=== PATIENT | male | born 1945 | race Caucasian/White ===

== ENCOUNTER 2016-10-14 11:13 | Emergency (ER) | payer MEDICARE ==
[2016-10-14] MEDS ORDERED: KETOROLAC 60 MG/2 ML VIAL IM STA (12:37)
[2016-10-14] MEDS ORDERED: KETOROLAC 60 MG/2 ML VIAL ONE (12:43)
== END 2016-10-14 13:10 | disposition home or self-care (01) ==
DX: M54.12 Radiculopathy, cervical region (principal); Z98.1 Arthrodesis status; F11.20 Opioid dependence, uncomplicated; I10 Essential (primary) hypertension; M19.90 Unspecified osteoarthritis, unspecified site; I25.10 Atherosclerotic heart disease of native coronary artery without angina pectoris; I25.2 Old myocardial infarction; Z95.1 Presence of aortocoronary bypass graft; I48.91 Unspecified atrial fibrillation; Z79.899 Other long term (current) drug therapy; Z79.82 Long term (current) use of aspirin; J44.9 Chronic obstructive pulmonary disease, unspecified; J45.909 Unspecified asthma, uncomplicated; Z87.891 Personal history of nicotine dependence

== ENCOUNTER 2016-11-03 11:04 | Outpatient (CLI) | payer MEDICARE, OTHER | END 2016-11-03 11:05 | disposition home or self-care (01) | DX: I10 Essential (primary) hypertension (principal) ==

== ENCOUNTER 2017-01-03 10:03 | Emergency (ER) | payer MEDICARE, OTHER ==
--- NOTE | 2017-01-03 11:18 | XRAY Preliminary Report ---
Exam: XR Chest 2 View PA/LAT IMPRESSION: Stable left lung base scarring or atelectasis. No evidence of pneumonia or other acute pr ocess. [facility] SITE ID: [id number]
--- NOTE | 2017-01-03 11:21 | XRAY Report ---
EXAM: CHEST RADIOGRAPHY EXAM DATE: 01/03/2017 10:50 AM. CLINICAL HISTORY: Cough. History of COPD and asthma. COMPARISON: 04/26/2016.. TECHNIQUE: 2 views. FINDINGS: Lungs/Pleura: No new focal opacities evident. Stable linear atelectasis or scarring at the left lung base. No pleural effusion. No pneumothorax. Normal volumes. Mediastinum: Stable findings of prior median sternotomy. Hilar and mediastinal contours are unchanged . Heart size remains within normal limits. Other: No acute bony abnormality noted. Cervical spine fusion hardware appears new from prior exam. IMPRESSION: Stable left lung base scarring or atelectasis. No evidence of pneumonia or other acute pr ocess. [facility] Referring Provider Line: [phone] SITE ID: [id number]
[2017-01-03] MEDS ORDERED: DEXAMETHASONE 10 MG/ML VIAL PO STA (12:32)
[2017-01-03] MEDS ORDERED: DEXAMETHASONE 10 MG/ML VIAL ONE (12:33)
--- NOTE | 2017-01-03 12:37 | ED Physician Documentation ---
PD HPI URI - Stated complaint Stated Complaint: COUGH/CONGESTION - Chief complaint Chief Complaint: Resp - History obtained from History obtained from: Patient - History of Present Illness Timing - onset: How many weeks ago (3) Timing duration: Weeks (3) Timing details: Gradual onset, Still present, Waxing and waning Associated symptoms: Fever, Nasal congestion, Rhinorrhea, Sore throat, Dry cough , Other (has coughing paroxysms when he lays down) Contributing factors: Other (has aclasia). 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 He has some low grade fever and feels like he has an infection. The symptoms are not severe but are persistent. Review of Systems Constitutional: reports: Fever, Myalgias, Fatigue Eyes: denies: Decreased vision Ears: denies: Ear pain Nose: reports: Rhinorrhea / runny nose, Congestion Throat: reports: Sore throat Cardiac: denies: Chest pain / pressure, Palpitations Respiratory: reports: Cough. denies: Dyspnea GI: reports: Vomiting (refluxes frequently). denies: Abdominal Pain, Nausea PD PAST MEDICAL HISTORY - Past Medical History Past Medical History: Yes Cardiovascular: Hypertension, Coronary artery disease, [place], Atrial fibrillation Respiratory: Asthma, COPD Neuro: None Endocrine/Autoimmune: None GI: GERD, Hiatal hernia, Diverticulitis : Benign prostate hypertrophy, Nocturia HEENT: Chronic sinusitis Psych: Depression, Anxiety, Claustrophobia Musculoskeletal: Osteoarthritis, Chronic back pain, Other Derm: Herpes zoster, Other - Past Surgical History Past Surgical History: Yes General: Cholecystectomy, EGD Ortho: Hip replacement, Knee replacement, Other Cardiovascular: CABG HEENT: Other - Present Medications Home Medications: Ambulatory Orders Medication Instructions Recorded Confirmed Aspirin [Naveen] 325 mg PO ONCE 02/17/13 01/03/17 Metoprolol Tartrate [Lopressor] 100 mg PO HS 02/17/13 01/03/17 Levalbuterol Tartrate [Xopenex Hfa] 2 puffs IH QID PRN #1 hfa.aer.ad 04/19/16 Trazodone HCl 300 mg PO DAILY #7 tablet 06/08/16 01/03/17 Acetaminophen 1,000 mg PO Q6HR 10/14/16 01/03/17 Naproxen Sodium [Aleve] 1 tab PO BID 10/14/16 01/03/17 Acetaminophen/Cod 300/30 [Tylenol 1 tab PO TID 01/03/17 01/03/17 #3] Amox/Clav 875/125 [Augmentin] 1 each PO Q12H #20 tablet 01/03/17 Lorazepam [Ativan] 1 mg PO TID 01/03/17 01/03/17 - Allergies Allergies/Adverse Reactions: Allergies Allergy/AdvReac Type Severity Reaction Status Date / Time albuterol Allergy Severe heart Verified 10/14/16 11:17 palpatation pantoprazole sodium * Allergy Intermediate Nausea Verified 10/14/16 11:17 [From Protonix] Dzrqudt-Uzr-Mhn Reductase Allergy Intermediate Unknown Verified 10/14/16 11:17 Inhibitor Sulfa (Sulfonamide Allergy Intermediate Rash Verified 10/14/16 11:17 Antibiotics) latex Allergy Mild Itching Verified 10/14/16 11:17 - Social History Does the pt smoke?: No Smoking Status: Former smoker Does the pt drink ETOH?: Yes Does the pt have substance abuse?: No - Immunizations Immunizations are current?: Yes - POLST Patient has POLST: No PD ED PE NORMAL - Vitals Vital signs reviewed: Yes (hypertensive ) - General General: Alert and oriented X 3, No acute distress, Well developed/nourished - HEENT HEENT: Atraumatic, PERRL, EOMI, Other (both TM's are erythematous in the attic ) - Neck Neck: Supple, no meningeal sign, No bony TTP - Cardiac Cardiac: RRR, No murmur - Respiratory Respiratory: No respiratory distress, Clear bilaterally - Abdomen Abdomen: Soft, Non tender, Other (The patient has gained weight ) - Back Back: No CVA TTP, No spinal TTP - Derm Derm: Normal color, Warm and dry, No rash - Extremities Extremities: No deformity, No edema - Neuro Neuro: No motor deficit, No sensory deficit - Psych Psych: Normal mood, Normal affect Results - Vitals Vitals: Vital Signs - 24 hr 01/03/17 01/03/17 10:10 12:38 Temperature 36.4 C L 36.4 C L Heart Rate 73 72 Respiratory 18 16 Rate Blood Pressure 159/79 H 132/82 H O2 Saturation 99 97 Oxygen O2 Source [With Activity] Room air O2 Source Room air - Rads (name of study) cxr Radiology: Prelim report reviewed (Impression: Stable left lung base scarring or atelectasis. 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 He does have some inflammation in both ears and today we are treating for OM with decadron and augmentin. He has had similar symptoms previously and his acalasia may be the real culprit but today no aspiration. Departure - Departure Disposition: 01 Home, Self Care Clinical Impression: Otitis media Qualifiers: Otitis media type: suppurative Laterality: bilateral Chronicity: acute Recurrence: not specified as recurrent Spontaneous tympanic membrane rupture: without spontaneous rupture Qualified Code(s): H66.003 - Acute suppurative otitis media without spontaneous rupture of ear drum, bilateral Condition: Stable Instructions: ED Otitis Media Acute Adult Follow-Up: OLIVERIO BARTH [Primary Care Provider] - Prescriptions: Amox/Clav 875/125 [Augmentin] 1 each PO Q12H #20 tablet Discharge Date/Time: 01/03/17 12:43
[2017-01-03 12:40] VITALS: BP 132/82
== END 2017-01-03 12:43 | disposition home or self-care (01) ==
LOC: ED 10:03
DX: H66.93 Otitis media, unspecified, bilateral (principal); I10 Essential (primary) hypertension; I25.10 Atherosclerotic heart disease of native coronary artery without angina pectoris; I25.2 Old myocardial infarction; I48.91 Unspecified atrial fibrillation; J44.9 Chronic obstructive pulmonary disease, unspecified; J45.909 Unspecified asthma, uncomplicated; K21.9 Gastro-esophageal reflux disease without esophagitis; N40.0 Benign prostatic hyperplasia without lower urinary tract symptoms; M19.90 Unspecified osteoarthritis, unspecified site; Z79.82 Long term (current) use of aspirin; Z87.891 Personal history of nicotine dependence
CPT/HCPCS: 71020; 99282; 99283

== ENCOUNTER 2017-01-30 09:42 | Emergency (ER) | payer MEDICARE ==
--- NOTE | 2017-01-30 10:02 | ED Physician Documentation ---
PD HPI LOWER EXT INJURY - Stated complaint Stated Complaint: LEFT KNEE INJ - History obtained from History obtained from: Patient, Family - History of Present Illness PD HPI LOW EXT INJURY LOCATION: Left, Knee Type of injury: Fall Where injury occurred: Home Timing - onset: Last night Timing - duration: Days (1) Timing - details: Abrupt onset, Still present Improved by: Rest, Immobilization Worsened by: Moving, Palpating Associated symptoms: Swelling. No: Weakness, Numbness Contributing factors: No: Anticoagulated Similar symptoms before: Diagnosis (knee sprain) Recently seen: Emergency Dept (Seen here last month for URI) - Additional information Additional information: 71 y/o male stepped off of a step ladder about 2 feet up and hyperextended his knee. He has some swelling and pain with weight bearing PD PAST MEDICAL HISTORY - Past Medical History Cardiovascular: Hypertension, Coronary artery disease, [place], Atrial fibrillation Respiratory: Asthma, COPD Neuro: None Endocrine/Autoimmune: None GI: GERD, Hiatal hernia, Diverticulitis : Benign prostate hypertrophy, Nocturia HEENT: Chronic sinusitis Psych: Depression, Anxiety, Claustrophobia Musculoskeletal: Osteoarthritis, Chronic back pain, Other Derm: Herpes zoster, Other - Past Surgical History Past Surgical History: Yes General: Cholecystectomy, EGD Ortho: Hip replacement, Knee replacement, Other Cardiovascular: CABG HEENT: Other - Present Medications Home Medications: Ambulatory Orders Medication Instructions Recorded Confirmed Aspirin [Naveen] 325 mg PO ONCE 02/17/13 01/30/17 Metoprolol Tartrate [Lopressor] 100 mg PO HS 02/17/13 01/30/17 Levalbuterol Tartrate [Xopenex Hfa] 2 puffs IH QID PRN #1 hfa.aer.ad 04/19/16 Trazodone HCl 300 mg PO DAILY #7 tablet 06/08/16 01/30/17 Acetaminophen 1,000 mg PO Q6HR 10/14/16 01/30/17 Naproxen Sodium [Aleve] 1 tab PO BID 10/14/16 01/30/17 Acetaminophen/Cod 300/30 [Tylenol 1 tab PO TID 01/03/17 01/30/17 #3] Amox/Clav 875/125 [Augmentin] 1 each PO Q12H #20 tablet 01/03/17 01/30/17 Lorazepam [Ativan] 1 mg PO TID 01/03/17 01/30/17 - Allergies Allergies/Adverse Reactions: Allergies Allergy/AdvReac Type Severity Reaction Status Date / Time albuterol Allergy Severe heart Verified 10/14/16 11:17 palpatation pantoprazole sodium * Allergy Intermediate Nausea Verified 10/14/16 11:17 [From Protonix] Xsvzldc-Vfx-Oqr Reductase Allergy Intermediate Unknown Verified 10/14/16 11:17 Inhibitor Sulfa (Sulfonamide Allergy Intermediate Rash Verified 10/14/16 11:17 Antibiotics) latex Allergy Mild Itching Verified 10/14/16 11:17 - Social History Does the pt smoke?: No Smoking Status: Former smoker Does the pt drink ETOH?: Yes Does the pt have substance abuse?: No - Immunizations Immunizations are current?: Yes - POLST Patient has POLST: No PD ED PE NORMAL - Vitals Vital signs reviewed: Yes (hypertensive ) - General General: No acute distress, Well developed/nourished - HEENT HEENT: Atraumatic, PERRL - Respiratory Respiratory: No respiratory distress - Derm Derm: Normal color, Warm and dry, No rash - Extremities Extremities: No deformity, Other (There does appear to be an effusion. The knee is run throug a ROM without significant pain. The ligaments are stable to testing and the distal n/v is intact. ) - Neuro Neuro: No motor deficit, No sensory deficit, Normal speech - Psych Psych: Normal mood, Normal affect Results - Vitals Vitals: Vital Signs - 24 hr 01/30/17 10:00 Temperature 37.3 C Heart Rate 69 Respiratory 16 Rate Blood Pressure 135/83 H O2 Saturation 95 Oxygen O2 Source [With Activity] Room air O2 Source Room air - Rads (name of study) 4 view left knee Radiology: Prelim report reviewed (Impression: 1. Trace joint effusion unchanged. 2. No acute fracture or malalignment. 3. Mild tricompartmental osteoarthritis.), EMP read indepedently, See rad report PD MEDICAL DECISION MAKING - ED course Complexity details: reviewed old records, reviewed results, re-evaluated patient , considered differential, d/w patient, d/w family ED course: 71 y/o male with a history of arthritis has a sprain of the left knee. Departure - Departure Disposition: 01 Home, Self Care Clinical Impression: Left knee sprain Qualifiers: Encounter type: initial encounter Involved ligament of knee: unspecified ligament Qualified Code(s): S83.92XA - Sprain of unspecified site of left knee, initial encounter Condition: Stable Instructions: ED Effusion Knee, ED Sprain Knee Follow-Up: OLIVERIO BARTH [Primary Care Provider] -
[2017-01-30 10:09] VITALS: BP 135/83
--- NOTE | 2017-01-30 10:44 | XRAY Preliminary Report ---
Exam: XR Knee 4 View LT IMPRESSION: 1. Trace joint effusion unchanged. 2. No acute fracture or malalignment. 3. Mild tricompartmental osteoarthritis. [facility] SITE ID: [id number]
--- NOTE | 2017-01-30 10:46 | XRAY Report ---
EXAM: LEFT KNEE RADIOGRAPHY EXAM DATE: 01/30/2017 10:18 AM. CLINICAL HISTORY: Hyperextension injury, pain to popletial area. COMPARISON: Left knee MRI dated 10/22/2010. TECHNIQUE: 4 views. FINDINGS: Bones: Diffuse osteopenia present. No acute fracture identified. No focal bone lesion. Joints: A trace joint effusion present as seen on prior MRI. Tiny osteophytes developing about all 3 compartments without significant joint space loss. Soft Tissues: Vascular calcifications and several surgical clips lie posterior to the knee. IMPRESSION: 1. Trace joint effusion unchanged. 2. No acute fracture or malalignment. 3. Mild tricompartmental osteoarthritis. [facility] Referring Provider Line: [phone] SITE ID: [id number]
[2017-01-30] MEDS ORDERED: KETOROLAC 60 MG/2 ML VIAL IM STA (10:59)
[2017-01-30] MEDS ORDERED: KETOROLAC 60 MG/2 ML VIAL ONE (11:05)
== END 2017-01-30 11:32 | disposition home or self-care (01) ==
LOC: ED 09:42
DX: S83.92XA Sprain of unspecified site of left knee, initial encounter (principal); X50.1XXA Overexertion from prolonged static or awkward postures, initial encounter; Y92.009 Unspecified place in unspecified non-institutional (private) residence as the place of occurrence of the external cause; I10 Essential (primary) hypertension; M17.12 Unilateral primary osteoarthritis, left knee; Z96.659 Presence of unspecified artificial knee joint; Z96.649 Presence of unspecified artificial hip joint; Z87.891 Personal history of nicotine dependence; Z79.82 Long term (current) use of aspirin
CPT/HCPCS: 96372; 99283

== ENCOUNTER 2017-04-08 11:22 | Emergency (ER) | payer MEDICARE ==
[2017-04-08] MEDS ORDERED: LEVALBUTEROL 1.25 MG INH STA (11:59)
[2017-04-08] MEDS ORDERED: predniSONE 20 MG TABLET PO STA (12:00)
[2017-04-08] MEDS ORDERED: predniSONE 20 MG TABLET ONE (12:08)
[2017-04-08] MEDS ORDERED: LEVALBUTEROL 1.25 MG INH ONE (12:11)
[2017-04-08] MEDS ORDERED: SODIUM CHLORIDE INHALATION 3 ML NEB ONE (12:11)
--- NOTE | 2017-04-08 13:28 | ED Physician Documentation ---
History of Present Illness - Stated complaint Stated Complaint: COUGH/CONGESTION - Chief complaint Chief Complaint: Resp - Additonal information Additional information: Patient is a 72-year-old man with a history of smoking in the past, hypertension , palpitations status post cardiac ablation who comes in with complaint of cough and congestion. He has had a dry nonproductive cough for a couple days. In addition he has been wheezing. He has a tickle in his throat and is been coughing sporadically. He has an Xopenex inhaler which she has been using variable benefit. He has not smoked since his heart attack about 10 years ago. He does not have any known history of COPD or asthma. He denies any fever chills there is no chest pain heaviness or exertional dyspnea. Review of systems: For pertinent positive and negatives in the review of systems please see the history of present illness, otherwise all other systems have been reviewed and are negative. Dragon disclaimer: Parts of this medical record were created using voice recognition technology. Because of the inherent limitations of this system, occasional same sounding word substitutions do occur and persist despite proofreading. Please read the document for context. PD PAST MEDICAL HISTORY - Past Medical History Cardiovascular: Hypertension, Coronary artery disease, [place], Atrial fibrillation Respiratory: Asthma, COPD Neuro: None Endocrine/Autoimmune: None GI: GERD, Hiatal hernia, Diverticulitis : Benign prostate hypertrophy, Nocturia HEENT: Chronic sinusitis Psych: Depression, Anxiety, Claustrophobia Musculoskeletal: Osteoarthritis, Chronic back pain, Other Derm: Herpes zoster, Other - Past Surgical History Past Surgical History: Yes General: Cholecystectomy, EGD Ortho: Hip replacement, Knee replacement, Other Cardiovascular: CABG, Other HEENT: Other - Present Medications Home Medications: Ambulatory Orders Medication Instructions Recorded Confirmed Aspirin [Naveen] 325 mg PO ONCE 02/17/13 04/08/17 Metoprolol Tartrate [Lopressor] 100 mg PO HS 02/17/13 04/08/17 Levalbuterol Tartrate [Xopenex Hfa] 2 puffs IH QID PRN #1 hfa.aer.ad 04/19/16 Trazodone HCl 300 mg PO DAILY #7 tablet 06/08/16 04/08/17 Acetaminophen 1,000 mg PO Q6HR 10/14/16 04/08/17 Acetaminophen/Cod 300/30 [Tylenol 1 tab PO TID 01/03/17 04/08/17 #3] Amox/Clav 875/125 [Augmentin] 1 each PO Q12H #20 tablet 01/03/17 04/08/17 Lorazepam [Ativan] 1 mg PO TID 01/03/17 04/08/17 Doxycycline Hyclate [Vibramycin] 100 mg PO BID #14 capsule 04/08/17 Levalbuterol Tartrate [Xopenex Hfa] 15 gm IH QID PRN #1 hfa.aer.ad 04/08/17 Prednisone 40 mg PO DAILY #8 tablet 04/08/17 - Allergies Allergies/Adverse Reactions: Allergies Allergy/AdvReac Type Severity Reaction Status Date / Time albuterol Allergy Severe heart Verified 04/08/17 11:34 palpatation pantoprazole sodium * Allergy Intermediate Nausea Verified 04/08/17 11:34 [From Protonix] Zsivuku-Fph-Ian Reductase Allergy Intermediate Unknown Verified 04/08/17 11:34 Inhibitor Sulfa (Sulfonamide Allergy Intermediate Rash Verified 04/08/17 11:34 Antibiotics) latex Allergy Mild Itching Verified 04/08/17 11:34 - Social History Does the pt smoke?: No Smoking Status: Former smoker Does the pt drink ETOH?: Yes Does the pt have substance abuse?: No - Immunizations Immunizations are current?: Yes - POLST Patient has POLST: No PD ED PE NORMAL - Vitals Vital signs reviewed: Yes - General General: Alert and oriented X 3, No acute distress - HEENT HEENT: Atraumatic, PERRL, Pharynx benign, Dentition benign - Neck Neck: Supple, no meningeal sign, No bony TTP, No JVD, No bruit. No: No adenopathy, Thyroid normal, Other - Cardiac Cardiac: RRR, No murmur - Respiratory Respiratory: Other (Increased expiratory phase, wheezes bilaterally. No stridor ) - Abdomen Abdomen: Normal bowel sounds - Back Back: No CVA TTP - Derm Derm: Normal color, Warm and dry, No rash, Other - Extremities Extremities: No deformity, Normal ROM s pain Results - Vitals Vitals: Vital Signs - 24 hr 04/08/17 04/08/17 11:26 12:05 Temperature 36.5 C Heart Rate 76 96 Respiratory 18 20 Rate Blood Pressure 165/91 H O2 Saturation 96 Oxygen O2 Source [With Activity] Room air O2 Source Room air PD MEDICAL DECISION MAKING - ED course ED course: And is well-appearing 72-year-old male who presents with wheezing and a cough. The cough is dry he does not have any fever or chills or other any infectious symptoms. On examination he has moderate prolonged expiratory phase and bilateral wheezing. There is no evidence of cardiac involvement, PE, or CHF clinically. Patient is given a Xopenex 2.5 mg treatment here with significant improvement. In addition I have given him corticosteroids orally and will continue course of treatment. He feels much better and sounds better after Xopenex treatment he was issued in a spacer to use with Xopenex inhaler which she has at home. We will be placed on a short course of prednisone and he was concerned about needing antibiotics I have asked him to try and not take antibiotics however he should fail to improve I have written him for doxycycline however I have encouraged him to wait on antibiotics since this is very likely viral in origin. Disposition: To home Clinical impression: 1. Acute bronchitis with wheezing 2. Suspect underlying COPD Departure - Departure Disposition: 01 Home, Self Care Clinical Impression: Bronchitis Condition: Good Instructions: ED Bronchitis Asthmatic Follow-Up: OLIVERIO BARTH [Primary Care Provider] - Prescriptions: Prednisone 40 mg PO DAILY #8 tablet Doxycycline Hyclate [Vibramycin] 100 mg PO BID #14 capsule Levalbuterol Tartrate [Xopenex Hfa] 15 gm IH QID PRN #1 hfa.aer.ad PRN Reason: Cough
[2017-04-08 13:34] VITALS: BP 145/90
== END 2017-04-08 13:32 | disposition home or self-care (01) ==
LOC: ED 11:22
DX: J20.9 Acute bronchitis, unspecified (principal); I10 Essential (primary) hypertension; I25.2 Old myocardial infarction; I25.10 Atherosclerotic heart disease of native coronary artery without angina pectoris; Z96.649 Presence of unspecified artificial hip joint; Z96.659 Presence of unspecified artificial knee joint; Z95.1 Presence of aortocoronary bypass graft; Z87.891 Personal history of nicotine dependence; Z79.82 Long term (current) use of aspirin
CPT/HCPCS: 94640; 94664; 99283; 99284; A9270; J7512

== ENCOUNTER 2017-05-18 11:04 | Emergency (ER) | payer MEDICARE ==
[2017-05-18] MEDS ORDERED: DEXAMETHASONE 10 MG/ML VIAL PO STA (12:35)
--- NOTE | 2017-05-18 12:38 | ED Physician Documentation ---
PD HPI UPPER EXT INJURY - Stated complaint Stated Complaint: RT ARM PX - Chief complaint Chief Complaint: Ext Problem - History obtained from History obtained from: Patient - History of Present Illness Location: Right, Shoulder Type of injury: Other (lifted a box) Where injury occurred: Other ([place]) Timing - onset: Yesterday Timing - duration: Days (1) Timing - details: Abrupt onset, Still present Improved by: Rest, Immobilization Worsened by: Moving, Palpating Associated symptoms: No: Weakness, Numbness, Swelling Contributing factors: No: Anticoagulated Similar symptoms before: Diagnosis (torn triceps tendon) Recently seen: Other (recent ablation) - Additonal information Additional information: 72-year-old male with chronic right shoulder pain and triceps tendon tear has been preparing for surgery on his shoulder and he required cardiac clearance and this ended up being a problem. He has had a recent ablation and feels much improved but continues to have the issue with his shoulder. He had the ablation done about 4 weeks ago. He has been feeling much improved and yesterday when out into some driving for the first time. He took his to [place] to do the shopping he lifted a heavy box and has strained his right shoulder. He was having some improvement in that pain and now has severe acute pain. He is barely able to move his shoulder.He has a prior history of some problems with OxyContin and requests we not give him that medicine. Review of Systems Constitutional: denies: Fever Ears: denies: Ear pain Nose: denies: Congestion Throat: denies: Sore throat Cardiac: denies: Chest pain / pressure Respiratory: denies: Cough GI: denies: Abdominal Pain, Nausea, Vomiting : denies: Dysuria, Frequency Musculoskeletal: reports: Extremity pain. denies: Neck pain, Back pain, Extremity swelling Neurologic: denies: Generalized weakness, Focal weakness, Numbness PD PAST MEDICAL HISTORY - Past Medical History Cardiovascular: Hypertension, Coronary artery disease, [place], Atrial fibrillation Respiratory: Asthma, COPD Neuro: None Endocrine/Autoimmune: None GI: GERD, Hiatal hernia, Diverticulitis : Benign prostate hypertrophy, Nocturia HEENT: Chronic sinusitis Psych: Depression, Anxiety, Claustrophobia Musculoskeletal: Osteoarthritis, Chronic back pain, Other Derm: Herpes zoster, Other - Past Surgical History Past Surgical History: Yes General: Cholecystectomy, EGD Ortho: Hip replacement, Knee replacement, Other Cardiovascular: CABG, Other HEENT: Other - Present Medications Home Medications: Ambulatory Orders Medication Instructions Recorded Confirmed Aspirin [Naveen] 325 mg PO ONCE 02/17/13 04/08/17 Metoprolol Tartrate [Lopressor] 100 mg PO HS 02/17/13 04/08/17 Levalbuterol Tartrate [Xopenex Hfa] 2 puffs IH QID PRN #1 hfa.aer.ad 04/19/16 Trazodone HCl 300 mg PO DAILY #7 tablet 06/08/16 04/08/17 Acetaminophen 1,000 mg PO Q6HR 10/14/16 04/08/17 Acetaminophen/Cod 300/30 [Tylenol 1 tab PO TID 01/03/17 04/08/17 #3] Amox/Clav 875/125 [Augmentin] 1 each PO Q12H #20 tablet 01/03/17 04/08/17 Lorazepam [Ativan] 1 mg PO TID 01/03/17 04/08/17 Doxycycline Hyclate [Vibramycin] 100 mg PO BID #14 capsule 04/08/17 Levalbuterol Tartrate [Xopenex Hfa] 15 gm IH QID PRN #1 hfa.aer.ad 04/08/17 Prednisone 40 mg PO DAILY #8 tablet 04/08/17 HYDROcod/ACETAM 5/325 [[place] 5/325] 1 - 2 ea PO Q6H PRN #15 tablet 05/18/17 - Allergies Allergies/Adverse Reactions: Allergies Allergy/AdvReac Type Severity Reaction Status Date / Time albuterol Allergy Severe heart Verified 05/18/17 11:27 palpatation pantoprazole sodium * Allergy Intermediate Nausea Verified 05/18/17 11:27 [From Protonix] Rhtmecw-Uja-Ewp Reductase Allergy Intermediate Unknown Verified 05/18/17 11:27 Inhibitor Sulfa (Sulfonamide Allergy Intermediate Rash Verified 05/18/17 11:27 Antibiotics) latex Allergy Mild Itching Verified 05/18/17 11:27 - Social History Does the pt smoke?: No Smoking Status: Never smoker Does the pt drink ETOH?: Yes Does the pt have substance abuse?: No - Immunizations Immunizations are current?: Yes - POLST Patient has POLST: No PD ED PE NORMAL - Vitals Vital signs reviewed: Yes (Hypertensive) - General General: Alert and oriented X 3, No acute distress, Well developed/nourished - HEENT HEENT: Atraumatic, PERRL - Neck Neck: Supple, no meningeal sign, No bony TTP - Cardiac Cardiac: RRR, No murmur - Respiratory Respiratory: No respiratory distress, Clear bilaterally - Back Back: No CVA TTP, No spinal TTP - Derm Derm: Normal color, Warm and dry, No rash - Extremities Extremities: No deformity, Other (There is point tenderness over the deltoid laterally and posteriorly . The shoulder is in the joint and rotates easily. There is pain to passive extendion and supination and there is limitation to the ROM. ) - Neuro Neuro: No motor deficit, No sensory deficit - Psych Psych: Normal mood, Normal affect Results - Vitals Vitals: Vital Signs - 24 hr 05/18/17 05/18/17 11:24 12:47 Temperature 36.7 C 37.0 C Heart Rate 70 67 Respiratory 16 18 Rate Blood Pressure 158/89 H 172/92 H O2 Saturation 94 96 Oxygen O2 Source [With Activity] Room air O2 Source Room air PD MEDICAL DECISION MAKING - ED course Complexity details: considered differential, d/w patient ED course: 72-year-old male with chronic right shoulder pain has strained his shoulder again. He has acute pain today and has plans for follow-up with his shoulder in place. Here in the emergency department today he is given dexamethasone 10 mg orally and we will place him on a short course of Vicodin for pain control. He does have issues with pain medications and we will limit his supply. A shot of toradal helps Departure - Departure Disposition: 01 Home, Self Care Clinical Impression: Shoulder pain, right Qualifiers: Chronicity: acute Qualified Code(s): M25.511 - Pain in right shoulder Condition: Stable Instructions: ED Strain Muscle Ext Follow-Up: OLIVERIO BARTH [Primary Care Provider] - Prescriptions: HYDROcod/ACETAM 5/325 [[place] 5/325] 1 - 2 ea PO Q6H PRN #15 tablet PRN Reason: Pain Discharge Date/Time: 05/18/17 12:50
[2017-05-18] MEDS ORDERED: KETOROLAC 60 MG/2 ML VIAL IM STA (12:42)
[2017-05-18] MEDS ORDERED: DEXAMETHASONE 10 MG/ML VIAL ONE (12:43)
[2017-05-18] MEDS ORDERED: CHERRY SYRUP 10 ML UDC PO ONE (12:44)
[2017-05-18 12:48] VITALS: BP 172/92
[2017-05-18] MEDS ORDERED: KETOROLAC 60 MG/2 ML VIAL ONE (12:49)
== END 2017-05-18 12:50 | disposition home or self-care (01) ==
LOC: ED 11:04
DX: M25.511 Pain in right shoulder (principal); G89.29 Other chronic pain; Z98.890 Other specified postprocedural states; I10 Essential (primary) hypertension; I25.10 Atherosclerotic heart disease of native coronary artery without angina pectoris; Z95.1 Presence of aortocoronary bypass graft; I25.2 Old myocardial infarction; I48.91 Unspecified atrial fibrillation; J45.909 Unspecified asthma, uncomplicated; J44.9 Chronic obstructive pulmonary disease, unspecified; K21.9 Gastro-esophageal reflux disease without esophagitis; N40.0 Benign prostatic hyperplasia without lower urinary tract symptoms; M19.90 Unspecified osteoarthritis, unspecified site; Z79.82 Long term (current) use of aspirin
CPT/HCPCS: 96372; 99283; A9270

== ENCOUNTER 2017-06-18 11:33 | Emergency (ER) | payer MEDICARE, OTHER ==
[2017-06-18 12:20] LABS: BASOPHILS # (AUTO) 0.1 10^3/uL (0.0-0.1); BASOPHILS % (AUTO) 1.4 %; EOSINOPHILS # (AUTO) 0.6 10^3/uL (0.0-0.7); HCT - HEMATOCRIT 42.9 % (42.0-52.0); HGB - HEMOGLOBIN 14.4 g/dL (14.0-18.0); LYMPHOCYTES % (AUTO) 21.3 %; MEAN CORPUSCULAR HEMOGLOBIN 31.2 pg (27.0-31.0); MEAN CORPUSCULAR HGB CONC 33.6 g/dL (32.0-36.0); MEAN CORPUSCULAR VOLUME 92.8 fL (80.0-94.0); MONOCYTES # (AUTO) 0.9 10^3/uL (0.0-1.0); MONOCYTES % (AUTO) 9.9 %; NEUTROPHILS # (AUTO) 5.8 10^3/uL (1.5-6.6); NEUTROPHILS % (AUTO) 61.4 %; RED BLOOD COUNT 4.62 10^6/uL (4.70-6.10); RED CELL DISTRIBUTION WIDTH 14.5 % (12.0-15.0); UNCORRECTED WHITE BLOOD COUNT 9.5 x10^3/uL; WHITE BLOOD COUNT 9.5 x10^3/uL (4.8-10.8)
[2017-06-18 12:32] LABS: ALBUMIN/GLOBULIN RATIO 1.5 (1.0-2.2); BILIRUBIN,TOTAL 0.6 mg/dL (0.2-1.0); CALCIUM 9.2 mg/dL (8.5-10.3); CREATININE 0.8 mg/dL (0.6-1.2); POTASSIUM 4.2 mmol/L (3.5-5.0)
--- NOTE | 2017-06-18 13:13 | XRAY Preliminary Report ---
Exam: XR CHEST 1 VIEW IMPRESSION: Left basilar atelectasis versus infiltrate with mild central congestion. [facility] SITE ID: [id number]
--- NOTE | 2017-06-18 13:16 | XRAY Report ---
EXAM: CHEST RADIOGRAPHY EXAM DATE: 06/18/2017 12:48 PM. CLINICAL HISTORY: Chest pain. COMPARISON: Previous exam of 06/15/2017. TECHNIQUE: 1 view. FINDINGS: Lungs/Pleura: There is left basilar atelectasis versus infiltrate. Mild central congestion noted. Mediastinum: Heart size at upper limits of normal. Stable poststernotomy changes seen. Other: Cervical thoracic spinal hardware noted. IMPRESSION: Left basilar atelectasis versus infiltrate with mild central congestion. [facility] Referring Provider Line: [phone] SITE ID: [id number]
[2017-06-18] MEDS ORDERED: ALBUTEROL NEB 2.5 MG/3 ML INH STA (14:18)
[2017-06-18] MEDS ORDERED: DEXAMETHASONE 10 MG/ML VIAL IVP STA (14:18)
[2017-06-18] MEDS ORDERED: HYDROmorphone 1 MG/ML SYRINGE IVP STA (14:18)
[2017-06-18] MEDS ORDERED: cephALEXin 250 MG CAPSULE PO STA (14:19)
[2017-06-18] MEDS ORDERED: BENZONATATE 100 MG CAPSULE PO STA (14:19)
[2017-06-18] MEDS ORDERED: KETOROLAC 60 MG/2 ML VIAL IVP STA (14:19)
[2017-06-18] MEDS ORDERED: BENZONATATE 100 MG CAPSULE PO ONE (14:36)
[2017-06-18] MEDS ORDERED: cephALEXin 250 MG CAPSULE PO ONE (14:37)
[2017-06-18] MEDS ORDERED: DEXAMETHASONE 10 MG/ML VIAL ONE (14:37)
[2017-06-18] MEDS ORDERED: HYDROmorphone 1 MG/ML SYRINGE ONE (14:37)
[2017-06-18] MEDS ORDERED: KETOROLAC 30 MG/ML VIAL ONE (14:37)
[2017-06-18] MEDS ORDERED: CHERRY SYRUP 10 ML UDC PO ONE (14:38)
[2017-06-18 14:47] VITALS: BP 134/96
[2017-06-18] MEDS ORDERED: ALBUTEROL NEB 2.5 MG/3 ML INH ONE (14:50)
--- NOTE | 2017-06-18 15:18 | ED Physician Documentation ---
PD HPI URI - Stated complaint Stated Complaint: SOA,WHEEZING - Chief complaint Chief Complaint: Resp - History obtained from History obtained from: Patient - History of Present Illness Timing - onset: How many days ago (several days to a week.) Timing duration: Days, Weeks (1) Associated symptoms: Nasal congestion, Dry cough, Chest pain (hurts with coughing), Dyspnea. No: Fever Similar symptoms before: Diagnosis (asthma and bronchitis) Recently seen: Emergency Dept (2 days ago) Review of Systems Constitutional: reports: Myalgias. denies: Fever Nose: reports: Congestion Throat: denies: Sore throat Cardiac: reports: Chest pain / pressure (hurts anteriorly with cough). denies: Palpitations Respiratory: reports: Dyspnea, Cough GI: denies: Abdominal Pain, Nausea, Vomiting, Diarrhea Skin: denies: Rash, Lesions Musculoskeletal: reports: Other (right shoulder pain chronic, with surgery was supposed to happen yesterday and was postponed by Ortho due to pneumonia. He is having pain in shoulder and had been getting 4 tylenol#3 daily (verifies on GUILLERMO ). Does not have meds as was supposed to get Rx from Ortho post-op.) PD PAST MEDICAL HISTORY - Past Medical History Cardiovascular: Hypertension, Coronary artery disease, [place], Atrial fibrillation Respiratory: Asthma, COPD Neuro: None Endocrine/Autoimmune: None GI: GERD, Hiatal hernia, Diverticulitis : Benign prostate hypertrophy, Nocturia HEENT: Chronic sinusitis Psych: Depression, Anxiety, Claustrophobia Musculoskeletal: Osteoarthritis, Chronic back pain, Other Derm: Herpes zoster, Other - Past Surgical History Past Surgical History: Yes General: Cholecystectomy, EGD Ortho: Hip replacement, Knee replacement, Other Cardiovascular: CABG, Other HEENT: Other - Present Medications Home Medications: Ambulatory Orders Medication Instructions Recorded Confirmed Aspirin [Naveen] 325 mg PO ONCE 02/17/13 06/18/17 Metoprolol Tartrate [Lopressor] 100 mg PO HS 02/17/13 06/18/17 Trazodone HCl 300 mg PO DAILY #7 tablet 06/08/16 06/18/17 Acetaminophen 1,000 mg PO Q6HR 10/14/16 06/18/17 Lorazepam [Ativan] 1 mg PO TID 01/03/17 06/18/17 Levalbuterol Tartrate [Xopenex Hfa] 15 gm IH QID PRN #1 hfa.aer.ad 04/08/1706/24 Acetaminophen/Cod 300/30 [Tylenol 1 each PO QID PRN #18 tablet 06/18/17 #3] Benzonatate [Tessalon] 100 mg PO TID PRN #25 capsule 06/18/17 Cephalexin [Keflex] 500 mg PO TID #21 capsule 06/18/17 Dexamethasone [Decadron] 4 mg PO DAILY #5 tablet 06/18/17 Erythromycin Base [Erythromycin] 250 mg PO DAILY 06/18/17 06/18/17 - Allergies Allergies/Adverse Reactions: Allergies Allergy/AdvReac Type Severity Reaction Status Date / Time albuterol Allergy Severe heart Verified 06/18/17 11:49 palpatation pantoprazole sodium * Allergy Intermediate Nausea Verified 06/18/17 11:49 [From Protonix] Vuahjta-Vaw-Pyi Reductase Allergy Intermediate Unknown Verified 06/18/17 11:49 Inhibitor Sulfa (Sulfonamide Allergy Intermediate Rash Verified 06/18/17 11:49 Antibiotics) latex Allergy Mild Itching Verified 06/18/17 11:49 - Social History Does the pt smoke?: No Smoking Status: Never smoker Does the pt drink ETOH?: Yes Does the pt have substance abuse?: No - Immunizations Immunizations are current?: Yes - POLST Patient has POLST: No PD ED PE NORMAL - Vitals Vital signs reviewed: Yes - General General: Alert and oriented X 3, No acute distress, Well developed/nourished - HEENT HEENT: Moist mucous membranes, Pharynx benign - Neck Neck: Supple, no meningeal sign - Cardiac Cardiac: RRR, No murmur - Respiratory Respiratory: Other (scattered wheezing, no coarse sounds noted. ) Results - Vitals Vitals: Vital Signs - 24 hr 06/18/17 06/18/17 06/18/17 11:44 13:47 14:44 Temperature 36.5 C 36.4 C L 36.6 C Heart Rate 84 82 85 Respiratory 22 18 16 Rate Blood Pressure 160/89 H 156/83 H 134/96 H O2 Saturation 94 94 94 06/18/17 14:50 Temperature Heart Rate 92 Respiratory 18 Rate Blood Pressure O2 Saturation Oxygen O2 Source [With Activity] Room air O2 Source Room air - Labs Labs: Laboratory Tests 06/18/17 06/18/17 06/18/17 12:00 12:00 12:00 WBC 9.5 RBC 4.62 L Hgb 14.4 Hct 42.9 MCV 92.8 MCH 31.2 H MCHC 33.6 RDW 14.5 Plt Count 226 MPV 7.0 L Neut # 5.8 Lymph # 2.0 [place] # 0.9 Eos # 0.6 Baso # 0.1 Absolute Nucleated RBC 0.00 Nucleated RBC % 0.0 Sodium 137 Potassium 4.2 Chloride 104 Carbon Dioxide 24 Anion Gap 9.0 BUN 14 Creatinine 0.8 Estimated GFR (MDRD) 95 Glucose 108 H Calcium 9.2 Total Bilirubin 0.6 AST 26 ALT 24 Alkaline Phosphatase 58 Troponin I < 0.04 Total Protein 7.0 Albumin 4.2 Globulin 2.8 Albumin/Globulin Ratio 1.5 Lipase 33 - Rads (name of study) chest Radiology: Prelim report reviewed, EMP read contemporaneously (no infiltrates.) PD MEDICAL DECISION MAKING - ED course Complexity details: reviewed old records, reviewed results, re-evaluated patient , considered differential (his shoulder surgery yesterday was cancelled due to respiratory infection/pneumonia. He is having more cough and wheezing despite the meds from last visit (Zpack was changed to erythromycin plain by pharmacist , and no steroid as becky was about to have surgery. ), d/w patient Departure - Departure Disposition: 01 Home, Self Care Clinical Impression: Dyspnea Qualifiers: Dyspnea type: shortness of breath Qualified Code(s): R06.02 - Shortness of breath Pneumonia Qualifiers: Pneumonia type: due to unspecified organism Laterality: left Lung location: lower lobe of lung Qualified Code(s): J18.1 - Lobar pneumonia, unspecified organism Condition: Stable Record reviewed to determine appropriate education?: Yes Instructions: ED Bronchitis Asthmatic Follow-Up: OLIVERIO BARTH [Primary Care Provider] - Prescriptions: Acetaminophen/Cod 300/30 [Tylenol #3] 1 each PO QID PRN #18 tablet PRN Reason: Pain Benzonatate [Tessalon] 100 mg PO TID PRN #25 capsule PRN Reason: Cough Cephalexin [Keflex] 500 mg PO TID #21 capsule Dexamethasone [Decadron] 4 mg PO DAILY #5 tablet Comments: Stop the erythromycin if it is bothering your stomach. Change to cephalexin 3 times a day for the next week. Use dexamethasone steroid daily for 5 more days. Benzonatate if needed for cough. Tylenol#3 up to 4 times a day as needed for pain. This is just to bridge between now and your primary care in order to continue your usual pain medication through your regular provider. Continue your inhaler at home 2 puffs 4 times a day and extra times if needed. Recheck if not improving over the next few days. Discharge Date/Time: 06/18/17 15:46
== END 2017-06-18 15:46 | disposition home or self-care (01) ==
LOC: ED 11:33
DX: J18.9 Pneumonia, unspecified organism (principal); I10 Essential (primary) hypertension; I25.10 Atherosclerotic heart disease of native coronary artery without angina pectoris; Z95.1 Presence of aortocoronary bypass graft; I25.2 Old myocardial infarction; I48.91 Unspecified atrial fibrillation; K21.9 Gastro-esophageal reflux disease without esophagitis; N40.0 Benign prostatic hyperplasia without lower urinary tract symptoms; M19.90 Unspecified osteoarthritis, unspecified site; Z79.82 Long term (current) use of aspirin
CPT/HCPCS: 36415; 71010; 80053; 83690; 84484; 85025; 93005; 94640; 96374; 96375; 99284; A9270; J1170; J7613

== ENCOUNTER 2017-06-20 19:43 | Observation (INO) | payer MEDICARE, OTHER ==
--- NOTE | 2017-06-20 20:28 | ED Physician Documentation ---
PD HPI CHEST PAIN - Stated complaint Stated Complaint: RIB PX - Chief complaint Chief Complaint: General - History obtained from History obtained from: Patient - History of Present Illness Timing - onset: How many days ago (2) Timing - duration: Days (2) Timing - details: Abrupt onset, Constant, Waxing and waning Pain level max: 10 Pain level now: 8 Quality: Sharp, Pain Location: Right chest Radiation: Back, Abdominal Improved by: Rest Worsened by: Movement, Palpation, Position Associated symptoms: Diaphoresis, Cough. No: Shortness of air Recently seen: Emergency Dept - Additional information Additional information: T+R from this ED 2 days ago, was prescribed antibiotic for possible pneumonia. Shortly after being discharged, he had sudden onset of severe right flank and right back pain (lower parathoracic/upper paralumbar region on right) when coughing. He presents due to a steady worsening of this pain. He was also T+R from this ED 06/15, prescribed zithromax, but he says that when he went to fill it, the pharmacist said this antibiotic had potential interaction with one of his medications and thus it was not filled). Review of Systems Constitutional: reports: Sweats. denies: Fever, Chills Eyes: reports: Reviewed and negative Ears: reports: Reviewed and negative Nose: reports: Reviewed and negative Throat: reports: Reviewed and negative Cardiac: reports: Chest pain / pressure (right lower chest wall). denies: Palpitations, Pedal edema, Calf pain Respiratory: reports: Cough. denies: Dyspnea GI: reports: Abdominal Pain, Nausea. denies: Vomiting, Constipation, Diarrhea : denies: Dysuria, Frequency Skin: reports: Lesions (right abdominal bruise) Musculoskeletal: reports: Back pain. denies: Neck pain, Extremity pain Neurologic: denies: Generalized weakness, Focal weakness PD PAST MEDICAL HISTORY - Past Medical History Cardiovascular: Hypertension, Coronary artery disease, [place], Atrial fibrillation Respiratory: Asthma, COPD Neuro: None Endocrine/Autoimmune: None GI: GERD, Hiatal hernia, Diverticulitis : Benign prostate hypertrophy, Nocturia HEENT: Chronic sinusitis Psych: Depression, Anxiety, Claustrophobia Musculoskeletal: Osteoarthritis, Chronic back pain, Other Derm: Herpes zoster, Other - Past Surgical History Past Surgical History: Yes General: Cholecystectomy, EGD Ortho: Hip replacement, Knee replacement, Other Cardiovascular: CABG, Other HEENT: Other - Present Medications Home Medications: Ambulatory Orders Medication Instructions Recorded Confirmed Metoprolol Tartrate [Lopressor] 100 mg PO HS 02/17/13 06/20/17 Trazodone HCl 300 mg PO DAILY #7 tablet 06/08/16 06/20/17 Acetaminophen 1,000 mg PO Q6HR 10/14/16 06/20/17 Lorazepam [Ativan] 1 mg PO TID 01/03/17 06/20/17 Levalbuterol Tartrate [Xopenex Hfa] 15 gm IH QID PRN #1 hfa.aer.ad 04/08/17 Acetaminophen/Cod 300/30 [Tylenol 1 each PO QID PRN #18 tablet 06/18/17 06/20/17 #3] Benzonatate [Tessalon] 100 mg PO TID PRN #25 capsule 06/18/17 06/20/17 Cephalexin [Keflex] 500 mg PO TID #21 capsule 06/18/17 06/20/17 Dexamethasone [Decadron] 4 mg PO DAILY #5 tablet 06/18/17 06/20/17 - Allergies Allergies/Adverse Reactions: Allergies Allergy/AdvReac Type Severity Reaction Status Date / Time albuterol Allergy Severe heart Verified 06/20/17 19:55 palpatation pantoprazole sodium * Allergy Intermediate Nausea Verified 06/20/17 19:55 [From Protonix] Ageqezv-Kpq-Zjw Reductase Allergy Intermediate Unknown Verified 06/20/17 19:55 Inhibitor Sulfa (Sulfonamide Allergy Intermediate Rash Verified 06/20/17 19:55 Antibiotics) latex Allergy Mild Itching Verified 06/20/17 19:55 - Social History Does the pt smoke?: No Smoking Status: Never smoker Does the pt drink ETOH?: Yes Does the pt have substance abuse?: No - Immunizations Immunizations are current?: Yes - POLST Patient has POLST: No PD ED PE NORMAL - Vitals Vital signs reviewed: Yes - General General: Alert and oriented X 3, Well developed/nourished, Other (painful distress, crying out in pain while awaiting evaluation) - HEENT HEENT: Atraumatic, Moist mucous membranes - Neck Neck: Supple, no meningeal sign - Cardiac Cardiac: RRR, No murmur - Respiratory Respiratory: No respiratory distress, Clear bilaterally - Abdomen Abdomen: Soft - Back Back: No spinal TTP - Extremities Extremities: No edema - Neuro Neuro: Alert and oriented X 3 PD ED PE EXPANDED - Abdomen Abdomen Visual: 1 - bruising, swelling, tenderness Results - Vitals Vitals: Vital Signs - 24 hr 06/20/17 06/20/17 06/20/17 19:47 19:54 23:10 Temperature 36.9 C 36.4 C L 36.7 C Heart Rate 85 83 84 Respiratory 19 16 17 Rate Blood Pressure 121/76 117/79 150/71 H O2 Saturation 94 96 95 Oxygen O2 Source [With Activity] Room air O2 Source Room air - Labs Labs: Laboratory Tests 06/20/17 06/20/17 06/20/17 21:33 21:33 21:33 WBC 12.5 H RBC 4.17 L Hgb 13.2 L Hct 39.2 L MCV 93.8 MCH 31.5 H MCHC 33.6 RDW 15.1 H Plt Count 274 MPV 7.0 L Neut # 10.6 H Lymph # 1.1 L [place] # 0.7 Eos # 0.0 Baso # 0.0 Absolute Nucleated RBC 0.00 Nucleated RBC % 0.0 PT 10.8 INR 1.0 APTT 23.2 L Sodium 134 L Potassium 4.6 Chloride 101 Carbon Dioxide 22 Anion Gap 11.0 BUN 23 H Creatinine 0.9 Estimated GFR (MDRD) 83 L Glucose 165 H Calcium 8.6 Total Bilirubin 0.7 AST 29 ALT 24 Alkaline Phosphatase 44 Total Protein 7.0 Albumin 4.0 Globulin 3.0 Albumin/Globulin Ratio 1.3 Lipase 39 - Rads (name of study) CT A/P Radiology: Prelim report reviewed, See rad report PD MEDICAL DECISION MAKING - ED course Complexity details: reviewed old records, reviewed results, re-evaluated patient , considered differential, d/w patient ED course: Modest relief with 4mg IV morphine. CT A/P reveals hematoma that appears to be mostly in the soft tissues, although it does extend into the retroperitoneum. There is no evidence of bleeding at time of scan (no extravasation or pooling of IV contrast). The radiology/product technician reported to me that the saline flush after the IV contrast appeared to cause swelling at IV site (right antecubital fossa), and thus IV removed. I inspected the site (right AC fossa), and note minimal swelling without tenderness, erythema, or focal firmness (only mild, soft swelling). A new IV was placed and patient given a second dose of IV morphine for recurrence of the pain. Departure - Departure Disposition: ED Place in Observation Clinical Impression: Abdominal hematoma Condition: Good Discharge Date/Time: 06/21/17 00:40
[2017-06-20] MEDS ORDERED: MORPHINE 2 MG/ML SYRINGE IVP STA ×2 (20:52→23:17)
[2017-06-20] MEDS ORDERED: MORPHINE 2 MG/ML SYRINGE ONE ×2 (21:07→23:32)
[2017-06-20] MEDS ORDERED: IOPAMIDOL-300 100 ML VIAL ONE (21:29)
[2017-06-20 21:40] LABS: BASOPHILS % (AUTO) 0.3 %; HCT - HEMATOCRIT 39.2 % (42.0-52.0); HGB - HEMOGLOBIN 13.2 g/dL (14.0-18.0); LYMPHOCYTES # (AUTO) 1.1 10^3/uL (1.5-3.5); LYMPHOCYTES % (AUTO) 9.1 %; MEAN CORPUSCULAR HEMOGLOBIN 31.5 pg (27.0-31.0); MEAN CORPUSCULAR HGB CONC 33.6 g/dL (32.0-36.0); MEAN CORPUSCULAR VOLUME 93.8 fL (80.0-94.0); MONOCYTES # (AUTO) 0.7 10^3/uL (0.0-1.0); MONOCYTES % (AUTO) 5.9 %; NEUTROPHILS # (AUTO) 10.6 10^3/uL (1.5-6.6); NEUTROPHILS % (AUTO) 84.7 %; RED BLOOD COUNT 4.17 10^6/uL (4.70-6.10); RED CELL DISTRIBUTION WIDTH 15.1 % (12.0-15.0); UNCORRECTED WHITE BLOOD COUNT 12.5 x10^3/uL; WHITE BLOOD COUNT 12.5 x10^3/uL (4.8-10.8)
[2017-06-20] MEDS ORDERED: ONDANSETRON 4 MG/2 ML VIAL IVP STA (21:48)
[2017-06-20] MEDS ORDERED: ONDANSETRON 4 MG/2 ML VIAL ONE (21:52)
[2017-06-20 21:54] LABS: ALBUMIN/GLOBULIN RATIO 1.3 (1.0-2.2); BILIRUBIN,TOTAL 0.7 mg/dL (0.2-1.0); CALCIUM 8.6 mg/dL (8.5-10.3); CREATININE 0.9 mg/dL (0.6-1.2); POTASSIUM 4.6 mmol/L (3.5-5.0)
[2017-06-20] MEDS ORDERED: IOPAMIDOL-300 100 ML VIAL IVP ONE (22:21)
--- NOTE | 2017-06-20 22:51 | CT Preliminary Report ---
Exam: CT ABDOMEN/PELVIS W/ IMPRESSION: 1. Moderate-sized hematoma centered around the lateral aspects of the right 10th and 11th ribs involv ing the subcutaneous tissues, intercostal musculature, and with extension into the retroperitoneum. N o definite active bleeding seen but close clinical monitoring is suggested. 2. No displaced rib fracture identified but there could be a nondisplaced rib fracture(s) and trauma related if patient is not coagulopathic for some other reason. 3. Fatty liver. 4. Colonic diverticulosis. 5. Moderate atherosclerotic disease of the aorta and branches. [facility] The above critical findings were discussed with Salomon by Dr. Ezra Madden at 22:42 hrs on 06/08 10/22. SITE ID: [id number]
--- NOTE | 2017-06-20 23:01 | CT Report ---
EXAM: CT ABDOMEN AND PELVIS EXAM DATE: 06/20/2017 10:25 PM. CLINICAL HISTORY: Right abdominal pain, tenderness, bruising. COMPARISONS: 08/03/2016. TECHNIQUE: Routine helical CT imaging was performed through the abdomen and pelvis. IV contrast: 100 mL Isovue 300. Enteric contrast: No . Reconstructions: Coronal and sagittal. In accordance with CT protocol optimization, one or more of the following dose reduction techniques w ere utilized for this exam: automated exposure control, adjustment of mA and/or KV based on patient s ize, or use of iterative reconstructive technique. FINDINGS: Lung Bases: Trace right effusion. No pneumothorax seen. Liver: Fatty. No suspicious masses. Gallbladder/Bile Ducts: Unremarkable post cholecystectomy. Spleen: Unremarkable. Pancreas: Unremarkable. Adrenal Glands: Unremarkable. Kidneys: Unremarkable. No suspicious masses or hydronephrosis. Peritoneal Cavity/Bowel: Extensive colonic diverticulosis. No bowel obstruction or inflammatory proce ss seen. No free air or significant free fluid. No masses or adenopathy. The appendix is normal. No e xcessive stool burden. Pelvic Organs: Essentially obscured by streak. Vasculature: Moderate atherosclerotic disease of the aorta and branches. No aneurysm seen. Bones: No displaced rib fracture identified. Previous posterior fusion at L4-S1. No acute spinal or p elvic fracture identified. Prior bilateral hip replacements. Post median sternotomy. Other: Moderate-sized hematoma centered around the lateral aspects of the right 10th and 11th ribs in volving the subcutaneous tissues, intercostal musculature, and with extension into the retroperitoneu m. No definite active bleeding seen. IMPRESSION: 1. Moderate-sized hematoma centered around the lateral aspects of the right 10th and 11th ribs involv ing the subcutaneous tissues, intercostal musculature, and with extension into the retroperitoneum. N o definite active bleeding seen but close clinical monitoring is suggested. 2. No displaced rib fracture identified but there could be a nondisplaced rib fracture(s) and trauma related if patient is not coagulopathic for some other reason. 3. Fatty liver. 4. Colonic diverticulosis. 5. Moderate atherosclerotic disease of the aorta and branches. [facility] The above critical findings were discussed with Salomon by Dr. Ezra Madden at 22:49 hrs on 06/08 10/22. Referring Provider Line: [phone] SITE ID: [id number]
[2017-06-20 23:35] LABS: PT - PROTHROMBIN TIME 10.8 secs (9.9-12.6)
[2017-06-20 23:42] LABS: PARTIAL THROMBOPLASTIN TIME 23.2 secs (24.9-33.3)
[2017-06-20] MEDS ORDERED: SODIUM CHLORIDE 0.9% 1,000 ML IV SCH (23:45)
[2017-06-20] MEDS ORDERED: BENZONATATE 100 MG CAPSULE PO PRN (23:51)
[2017-06-20] MEDS ORDERED: PROCHLORPERAZINE 10 MG/2 ML VIAL IVP PRN (23:52)
[2017-06-20] MEDS ORDERED: oxyCODONE 5 MG TABLET PO PRN (23:52)
[2017-06-20] MEDS ORDERED: ONDANSETRON 4 MG/2 ML VIAL IVP PRN (23:52)
[2017-06-20] MEDS ORDERED: SODIUM CHLORIDE INHALATION 3 ML NEB INH PRN (23:52)
[2017-06-21] MEDS ORDERED: guaiFENesin/CODEINE 5 ML UDC PO PRN (00:28)
[2017-06-21] MEDS: traZODone 50 MG TABLET PO SCH ×2 (01:20→20:19)
[2017-06-21] MEDS: SODIUM CHLORIDE FLUSH 0.9% 10 ML SYRINGE IVP PRN ×3 (01:20→22:23)
[2017-06-21] MEDS: MORPHINE 2 MG/ML SYRINGE IVP PRN ×8 (01:27→22:22)
[2017-06-21] MEDS: oxyCODONE 5 MG TABLET PO PRN ×4 (02:00→20:20)
--- NOTE | 2017-06-21 02:15 | HISTORY & PHYSICAL EXAMINATION ---
Chief Complaint - Chief Complaint Chief Complaint: Right lower rib and flank pain History of Present Illness - Admitted From Admitted From:: Emergency department - History Obtained From Records Reviewed: Yes History obtained from: Patient Exam Limitations: None - History of Present Illness HPI Comment/Other: Patient is a 72-year-old gentleman with a past medical history significant for achalasia, chronic low back pain, right rotator cuff tear, COPD, coronary artery disease status post CABG, frequent PVCs status post ablation, hypertension and depression who presented to the emergency department with a chief complaint of right lower rib and flank pain. The patient states that he has been having severe coughing for the last 10 days. He was diagnosed with pneumonia and allergic bronchitis and is currently on a cough suppressant, Mucinex, steroids and antibiotics. The patient states that his coughing continued to worsen until just 2 days ago when he is a he states that he had continuous coughing and felt as though he had a crack in the mid back area near his ribs. He states that he noticed some bruising in that area after he heard a crack. He states that area became very painful not just with coughing but also when he was not coughing. He states today he began having persistent coughing again despite taking the Mucinex. He states the coughing got worse and worse throughout the day and then he began having severe pain in the right lower rib rib and right flank area. He noticed that the bruising that was on his right flank/lower rib area had now made its way around to the anterior lower rib area. He states that his pain was so severe that he decided to come into the emergency department. He states that despite taking pain medication at home he could not get the pain controlled. The patient denies any fevers or chills. He denies any increased shortness of air. The patient denies any hemoptysis or hematemesis. The patient states he is not on any blood thinners. The patient denies any drinking. Patient denies any headache, blurred vision, runny nose, sore throat, nasal congestion, he does have chronic difficulty swallowing. He denies any neck pain , he denies any urinary urgency, urinary frequency, dysuria, he does admit to right shoulder pain and arm weakness. He also admits to chronic back pain. He denies any recent unintentional weight loss. He denies any changes in his appetite. Patient denies any focal neurologic deficits. On presentation to the emergency department the patient was afebrile and vital signs were all within normal limits. The patient was in acute distress as he was in severe pain. The patient was given 4 mg of IV morphine with which the patient's pain did subside. When examined the patient appear to have severe deep bruising in the right lower anterior rib cage area as well as on the right flank area. The patient's lab work revealed a hemoglobin of 13.2 which was near his baseline. The remainder of the patient's lab work was within normal limits. The patient underwent a CT of his abdomen and pelvis which did reveal a moderate sized hematoma centered around the lateral aspect of the 10th and 11th ribs involving the subcutaneous tissue, intercostal musculature and with extension into the retroperitoneum. There was no definite active bleeding seen on the CT scan. There was no displaced rib fractures identified on the CT scan. When asked the patient denied any trauma to the area. The patient was placed in observation for further observation of the hematoma and monitoring of his H&H. History - Past Medical History Cardiovascular: reports: Hypertension, Coronary artery disease (Status post CABG ), Arrhythmia (SVT status post ablation), Other Respiratory: reports: Asthma, COPD, Pneumonia Neuro: reports: None Endocrine/Autoimmune: reports: None GI: reports: GERD, Ulcers, Hiatal hernia, Diverticulitis : reports: Benign prostate hypertrophy, Nocturia HEENT: reports: Chronic sinusitis Psych: reports: Depression, Anxiety, Claustrophobia Musculoskeletal: reports: Osteoarthritis, Chronic back pain, Other Derm: reports: Herpes zoster, Other MRSA Hx?: No - Past Surgical History General: reports: Cholecystectomy, EGD Ortho: reports: Hip replacement, Knee replacement, Other Cardiovascular: reports: CABG, Other HEENT: reports: Other - Family & Social History Family History: Mother: CVA/TIA (At age 42 ), Father: Cancer (Lung cancer he was a smoker) Living arrangement: At home Living Situation: With spouse/s.o. Social History Notes: Patient was born in [facility] and moved would [facility] in [facility]. The patient went to [employer] for his undergraduate degree and received his PhD in [employer] [facility]. 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 The patient also served in the [employer]. Patient lives in [place], [place] with his . The patient smoked about half a pack a day for 20 years. He drinks socially states he has a beer here and there but is not a heavy drinker. The patient denies any illicit drug use. - POLST Patient has POLST: No POLST Status: Full Code Meds/Allgy - Home Medications Home Medications: Ambulatory Orders Medication Instructions Recorded Confirmed Metoprolol Tartrate [Lopressor] 100 mg PO HS 02/17/13 06/20/17 Trazodone HCl 300 mg PO DAILY #7 tablet 06/08/16 06/20/17 Acetaminophen 1,000 mg PO Q6HR 10/14/16 06/20/17 Lorazepam [Ativan] 1 mg PO TID 01/03/17 06/20/17 Levalbuterol Tartrate [Xopenex Hfa] 15 gm IH QID PRN #1 hfa.aer.ad 04/08/17 Acetaminophen/Cod 300/30 [Tylenol 1 each PO QID PRN #18 tablet 06/18/17 06/20/17 #3] Benzonatate [Tessalon] 100 mg PO TID PRN #25 capsule 06/18/17 06/20/17 Cephalexin [Keflex] 500 mg PO TID #21 capsule 06/18/17 06/20/17 Dexamethasone [Decadron] 4 mg PO DAILY #5 tablet 06/18/17 06/20/17 - Allergies Allergies/Adverse Reactions: Allergies Allergy/AdvReac Type Severity Reaction Status Date / Time albuterol Allergy Severe heart Verified 06/20/17 19:55 palpatation pantoprazole sodium * Allergy Intermediate Nausea Verified 06/20/17 19:55 [From Protonix] Srhkutd-[id number]-Wpm Reductase Allergy Intermediate Unknown Verified 06/20/17 19:55 Inhibitor Sulfa (Sulfonamide Allergy Intermediate Rash Verified 06/20/17 19:55 Antibiotics) latex Allergy Mild Itching Verified 06/20/17 19:55 Review of Systems - Other Findings Other Findings: A comprehensive review of systems was performed the pertinent positives and negatives are stated above in the HPI and the remainder of the review of systems is negative. Exam - Vital Signs Reviewed Vital Signs: Yes Vital Signs: Vital Signs x48h Temp Pulse Resp BP Pulse Ox 06/21/17 00:45 36.2 C L 76 16 139/82 H 94 - Physical Exam General Appearance: positive: No acute distress, Alert Eyes Bilateral: positive: Normal inspection, PERRL, EOMI, No lid inflammation, Conjunctivae nml, No scleral icterus ENT: positive: ENT inspection nml, Pharynx nml, No signs of dehydration. negative: Purulent nasal drainage, Pharyngeal erythema, Oral lesions Neck: positive: Nml inspection, Thyroid nml, No JVD, Trachea midline. negative : Thyromegaly, Lymphadenopathy (R), Lymphadenopathy (L) Respiratory: positive: No respiratory distress, Wheezes (Mild scattered), Other (Decreased breath sounds at the bases) Cardiovascular: positive: Regular rate & rhythm, No murmur, No gallop Peripheral Pulses: positive: 2+ Abdomen: positive: Nml bowel sounds, No distention, Tenderness (Mild tenderness in the right upper quadrant of the abdomen around the lower rib cage area). negative: Guarding, Rebound, Hepatomegaly Back: positive: CVA tenderness (R) (Patient has significant tenderness in the right flank/lower rib cage area with significant bruising) Skin: positive: Other (Patient has dark purplish bruising in the anterior lower rib cage area with milder bruising in the right flank area). negative: Cyanosis , Pallor Extremities: positive: Non-tender, Nml appearance, No pedal edema, Other ( Decreased range of motion around the right shoulder secondary to rotator cuff injury) Neurologic/Psychiatric: positive: Oriented x3, CN's nml (2-12), Motor nml, Sensation nml, Mood/affect nml Conclusion/Plan - Problem List (1) Abdominal hematoma Conclusion/Plan: Patient presented with right lower rib cage and right flank pain. Patient's pain started after several days of severe coughing spells. Patient noted to have bruising in the right abdominal wall around to the right flank. CT abdomen pelvis showed moderate sized hematoma centered around the lateral aspects of the right 10th and 11th ribs involving the subcutaneous tissue, intercostal musculature and with extension into the retroperitoneum. No definite active bleeding was seen but close clinical monitoring was suggested. The patient's hemoglobin was stable and vital signs were stable on presentation. Patient did have severe pain which did subside with morphine IV. The patient denied any trauma. He denied any use of blood thinners or alcohol. Although this appears to be quite a large hematoma for someone to obtain just from severe coughing spells in the setting of not being on any anticoagulation or having had any bleeding disorders. It appears from the patient's history that this is the most likely cause of the patient's hematoma. According to emergency room physicians there is some suspicion for patient abusing alcohol although the patient denies this. If in fact the patient was abusing alcohol it is possible that the patient could have fallen and this could be a hematoma secondary to trauma to the area. Plan: We will monitor the patient closely in observation Monitor H&H every 6 hours Monitor blood pressure closely Transfuse if hemoglobin drops below 7 Type and cross Surgery consult Consider transfer for IR embolization if patient has any significant drop in hemoglobin or has continued bleeding. Pain control with IV morphine Cough suppression with Mucinex and codeine (2) CAP (community acquired pneumonia) Conclusion/Plan: Patient was diagnosed with allergic bronchitis and community-acquired pneumonia over the last week. Patient has had persistent cough. Patient does have mild leukocytosis but has no fevers or hypoxia. Plan: Patient will be continued on his home dose of Keflex for treatment of community- acquired pneumonia Patient will be given nebulizers as needed Patient will be continued on his home dose of steroid Oxygen as needed Mucinex and codeine for cough suppression (3) COPD (chronic obstructive pulmonary disease) Conclusion/Plan: Patient has history of chronic bronchitis and did have exacerbation of COPD recently with pneumonia. Patient is on oral steroid and antibiotics at home. We will continue the patient's home medications and place him on nebs as needed. Patient's COPD appears to be stable. (4) Hypertension Conclusion/Plan: Patient has history of hypertension and is on metoprolol at home. Patient states that his blood pressure was elevated at home when he was in significant pain and doubled his dose of his metoprolol. On presentation to the emergency department the patient's blood pressure is stable. We will monitor patient's blood pressure in the case that he does drop his hemoglobin or continues to bleed. We will continue patient's antihypertensive medications as long as blood pressure remains stable. - Lab Results Lab results reviewed: Yes Fish Bones: 06/20/17 21:33 06/20/17 21:33 Other Lab Results: Laboratory Results WBC 12.5 x10^3/uL (4.8-10.8) H 06/20/17 21:33 RBC 4.17 10^6/uL (4.70-6.10) L 06/20/17 21:33 Hgb 13.2 g/dL (14.0-18.0) L 06/20/17 21: Hct 39.2 % (42.0-52.0) L 06/20/17 21:33 MCV 93.8 fL (80.0-94.0) 06/20/17 21: MCH 31.5 pg (27.0-31.0) H 06/20/17 21: MCHC 33.6 g/dL (32.0-36.0) 06/20/17: RDW 15.1 % (12.0-15.0) H 06/20/17:33 Plt Count 274 10^3/uL (130-450) 06/20/17 21: MPV 7.0 fL (7.4-11.4) L 06/20/17 21: Neut # 10.6 10^3/uL (1.5-6.6) H 06/20/17: Lymph # 1.1 10^3/uL (1.5-3.5) L 06/20/17 21:33 Dyer # 0.7 10^3/uL (0.0-1.0) 06/20/17: Eos # 0.0 10^3/uL (0.0-0.7) 06/20/17 21: Baso # 0.0 10^3/uL (0.0-0.1) 06/20/17: Absolute Nucleated RBC 0.00 x10^3/uL 06/20/17: Nucleated RBC % 0.0 /100WBC 06/20/17 21: PT 10.8 secs (9.9-12.6) 06/20/17 21: INR 1.0 (0.8-1.2) 06/20/17 21:33 APTT 23.2 secs (24.9-33.3) L 06/20/17 21:33 Sodium 134 mmol/L (135-145) L 06/20/17 21: Potassium 4.6 mmol/L (3.5-5.0) 06/20/17 21: Chloride 101 mmol/L (101-111) 06/20/17 21:33 Carbon Dioxide 22 mmol/L (21-32) 06/20/17 21:33 Anion Gap 11.0 (6-13) 06/20/17 21:33 BUN 23 mg/dL (6-20) H 06/20/17 21:33 Creatinine 0.9 mg/dL (0.6-1.2) 06/20/17 21:33 Estimated GFR (MDRD) 83 (>89) L 06/20/17 21:33 Glucose 165 mg/dL (70-100) H 06/20/17 21:33 Calcium 8.6 mg/dL (8.5-10.3) 06/20/17 21:33 Total Bilirubin 0.7 mg/dL (0.2-1.0) 06/20/17 21:33 AST 29 IU/L (10-42) 06/20/17 21:33 ALT 24 IU/L (10-60) 06/20/17 21:33 Alkaline Phosphatase 44 IU/L (42-121) 06/20/17 21:33 Total Protein 7.0 g/dL (6.7-8.2) 06/20/17 21:33 Albumin 4.0 g/dL (3.2-5.5) 06/20/17 21:33 Globulin 3.0 g/dL (2.1-4.2) 06/20/17 21:33 Albumin/Globulin Ratio 1.3 (1.0-2.2) 06/20/17 21:33 Lipase 39 U/L (22-51) 06/20/17 21:33 - Diagnostic Imaging Results Diagnostic Imaging Results: positive: Final report reviewed Diagnostic Imaging Results Comments: CT abdomen/pelvis Impression: 1. Moderate-sized hematoma centered around the lateral aspect of the right 10th and 11th ribs involving the subcutaneous tissue, intercostal musculature, and the with extension into the retroperitoneum. No definite active bleeding seen but close clinical monitoring is suggested. 2. No displaced rib fracture identified but there could be a nondisplaced rib fracture and trauma related if patient is not coagulopathic for some other reason. 3. Fatty liver. 4. Colonic diverticulosis. 5. Moderate atherosclerotic disease of the aorta and branches. Issues/Core Measures - Anticipated LOS Anticipated Stay Length: Less than 2 midnights - DVT/VTE - Prophylaxis VTE/DVT Device ordered at admit?: Yes
[2017-06-21 05:35] LABS: BASOPHILS % (AUTO) 0.2 %; HCT - HEMATOCRIT 34.7 % (42.0-52.0); HGB - HEMOGLOBIN 11.5 g/dL (14.0-18.0); LYMPHOCYTES # (AUTO) 1.2 10^3/uL (1.5-3.5); LYMPHOCYTES % (AUTO) 9.1 %; MEAN CORPUSCULAR HEMOGLOBIN 31.5 pg (27.0-31.0); MEAN CORPUSCULAR VOLUME 95.4 fL (80.0-94.0); MEAN PLATELET VOLUME 6.8 fL (7.4-11.4); MONOCYTES # (AUTO) 1.4 10^3/uL (0.0-1.0); MONOCYTES % (AUTO) 10.1 %; NEUTROPHILS # (AUTO) 10.8 10^3/uL (1.5-6.6); NEUTROPHILS % (AUTO) 80.6 %; RED BLOOD COUNT 3.64 10^6/uL (4.70-6.10); RED CELL DISTRIBUTION WIDTH 15.3 % (12.0-15.0); UNCORRECTED WHITE BLOOD COUNT 13.4 x10^3/uL; WHITE BLOOD COUNT 13.4 x10^3/uL (4.8-10.8)
[2017-06-21 05:41] LABS: PT - PROTHROMBIN TIME 11.4 secs (9.9-12.6)
[2017-06-21 05:55] LABS: ALBUMIN/GLOBULIN RATIO 1.3 (1.0-2.2); BILIRUBIN,TOTAL 0.8 mg/dL (0.2-1.0); CALCIUM 8.1 mg/dL (8.5-10.3); CREATININE 0.9 mg/dL (0.6-1.2); POTASSIUM 4.7 mmol/L (3.5-5.0); TOTAL PROTEIN 6.3 g/dL (6.7-8.2)
[2017-06-21] MEDS: LORazepam 0.5 MG TABLET PO SCH ×3 (06:31→20:20)
[2017-06-21] MEDS: cephALEXin 250 MG CAPSULE PO SCH ×3 (06:31→20:18)
[2017-06-21] MEDS: SODIUM CHLORIDE FLUSH 0.9% 10 ML SYRINGE IVP SCH ×3 (06:34→17:42)
[2017-06-21 07:09] LABS: BILIRUBIN,URINE NEGATIVE (NEGATIVE)
[2017-06-21 07:15] LABS: UA CHARGE (STRIP ONLY) YES; UR CULTURE IF IND NOT INDICATED
[2017-06-21] MEDS: LEVALBUTEROL 1.25 MG/0.5 ML NEB INH PRN (08:07)
[2017-06-21] MEDS: POLYETHYLENE GLYCOL 3350 17 GM PACKET PO SCH (08:46)
[2017-06-21] MEDS: FAMOTIDINE 20 MG TABLET PO SCH (08:46)
[2017-06-21] MEDS ORDERED: traZODone 50 MG TABLET PO SCH (09:00)
[2017-06-21] MEDS ORDERED: DEXAMETHASONE 4 MG TABLET PO SCH (09:00)
--- NOTE | 2017-06-21 09:16 | XRAY Preliminary Report ---
Exam: XR CHEST 2 VIEW PA/LAT IMPRESSION: 1. Left greater than right basilar atelectasis. [facility] SITE ID: [id number]
--- NOTE | 2017-06-21 09:18 | XRAY Report ---
EXAM: CHEST RADIOGRAPHY EXAM DATE: 06/21/2017 08:37 AM. CLINICAL HISTORY: Shortness of breath. COMPARISON: Chest x-ray 06/18/2017. TECHNIQUE: 2 views. FINDINGS: Lungs/Pleura: Diskoid left greater than right basilar opacities. Diminished lung volumes. No pneumoth orax. Mediastinum: Heart and mediastinal contours are unremarkable. Other: Prior sternotomy. Prior cervical spine fusion surgery. IMPRESSION: 1. Left greater than right basilar atelectasis. [facility] Referring Provider Line: [phone] SITE ID: [id number]
[2017-06-21] MEDS ORDERED: LEVALBUTEROL TARTRATE INH PRN (10:55)
[2017-06-21] MEDS ORDERED: traZODone 50 MG TABLET PO PRN (10:55)
[2017-06-21 11:04] LABS: HCT - HEMATOCRIT 32.7 % (42.0-52.0); HGB - HEMOGLOBIN 10.9 g/dL (14.0-18.0)
[2017-06-21] MEDS ORDERED: METOPROLOL SUCCINATE 50 MG TABLET PO SCH (11:30)
[2017-06-21 12:01] LABS: BASOPHILS # (AUTO) 0.1 10^3/uL (0.0-0.1); BASOPHILS % (AUTO) 0.5 %; HCT - HEMATOCRIT 33.9 % (42.0-52.0); HGB - HEMOGLOBIN 11.2 g/dL (14.0-18.0); LYMPHOCYTES # (AUTO) 1.4 10^3/uL (1.5-3.5); LYMPHOCYTES % (AUTO) 9.2 %; MEAN CORPUSCULAR HEMOGLOBIN 31.2 pg (27.0-31.0); MEAN CORPUSCULAR HGB CONC 33.1 g/dL (32.0-36.0); MEAN CORPUSCULAR VOLUME 94.5 fL (80.0-94.0); MEAN PLATELET VOLUME 6.7 fL (7.4-11.4); MONOCYTES # (AUTO) 1.3 10^3/uL (0.0-1.0); MONOCYTES % (AUTO) 8.7 %; NEUTROPHILS # (AUTO) 12.2 10^3/uL (1.5-6.6); NEUTROPHILS % (AUTO) 81.6 %; RED BLOOD COUNT 3.59 10^6/uL (4.70-6.10); RED CELL DISTRIBUTION WIDTH 14.9 % (12.0-15.0)
[2017-06-21] MEDS: LORATADINE 10 MG TABLET PO SCH (13:42)
[2017-06-21] MEDS: ACETAMINOPHEN 325 MG TABLET PO PRN (13:46)
--- NOTE | 2017-06-21 14:45 | PROVIDER PROGRESS NOTE ---
Subjective - Prog Note Date Prog Note Date: 06/21/17 - Subjective Pt reports feeling: Improved Subjective: pt state he feel better, denies chest pain, SOB. pt state he still has cough. Current Medications - Current Medications Current Medications: Active Medications Acetaminophen (Tylenol) 650 mg PO Q4HR PRN PRN Reason: Pain 1 to 4 Last Admin: 06/21/17 13:46 Dose: 650 mg Cephalexin (Keflex) 500 mg PO TID [facility] Last Admin: 06/21/17 13:42 Dose: 500 mg Famotidine (Pepcid) 20 mg PO DAILY [facility] Last Admin: 06/21/17 08:46 Dose: 20 mg Guaifenesin/Codeine Phosphate (Robitussin Ac) 5 ml PO Q6HR PRN PRN Reason: Cough Levalbuterol HCl (Xopenex) 1.25 mg INH Q4H PRN PRN Reason: Wheezing Last Admin: 06/21/17 08:07 Dose: 1.25 mg Loratadine (Claritin) 10 mg PO DAILY [facility] Last Admin: 06/21/17 13:42 Dose: 10 mg Lorazepam (Ativan) 1 mg PO TID [facility] Last Admin: 06/21/17 13:41 Dose: 1 mg Metoprolol Succinate (Toprol Xl) 100 mg PO BID [facility] Morphine Sulfate (Morphine) 4 mg IVP Q2H PRN PRN Reason: Pain 8 to 10 Last Admin: 06/21/17 14:27 Dose: 4 mg Ondansetron HCl (Zofran Inj) 4 mg IVP Q6HR PRN PRN Reason: Nausea / Vomiting Oxycodone HCl (Roxicodone) 5 mg PO Q4HR PRN PRN Reason: Pain 5 to 7 Oxycodone HCl (Roxicodone) 10 mg PO Q4HR PRN PRN Reason: Pain 8 to 10 Last Admin: 06/21/17 10:51 Dose: 10 mg Polyethylene Glycol (Miralax) 17 gm PO DAILY [facility] Last Admin: 06/21/17 08:46 Dose: 17 gm Prochlorperazine Edisylate (Compazine Inj) 10 mg IVP Q6HR PRN PRN Reason: Nausea / Vomiting Sodium Chloride (Normal Saline) 3 ml INH PRN PRN PRN Reason: Levalbuterol treatment Last Admin: 06/21/17 08:07 Dose: 3 ml Sodium Chloride (Normal Saline Flush 0.9%) 10 ml IVP PRN PRN PRN Reason: NEEDED PER PROVIDER ORDERS Last Admin: 06/21/17 08:51 Dose: 10 ml Sodium Chloride (Normal Saline Flush 0.9%) 10 ml IVP Q8HR [facility] Last Admin: 06/21/17 13:30 Dose: Not Given Trazodone HCl (Desyrel) 300 mg PO QPM [facility] Last Admin: 06/21/17 01:20 Dose: 300 mg Trazodone HCl (Desyrel) 50 mg PO QPM PRN PRN Reason: Insomnia Lorazepam [Ativan] 1 mg PO TID 01/03/17 Cephalexin [Keflex] 500 mg PO [id number] 06/21/17 Levalbuterol Tartrate [Xopenex Hfa] 2 puffs INH Q4H PRN 06/21/17 Loratadine [Claritin] 10 mg PO DAILY 06/21/17 Metoprolol Succinate [Toprol Xl] 100 mg PO BID 06/21/17 traZODone [Desyrel] 50 mg PO QPM PRN 06/21/17 traZODone [Desyrel] 300 mg PO QPM 06/21/17 Objective - Vital Signs/Intake & Output Reviewed Vital Signs: Yes Vital Signs: Vital Signs x48h Temp Pulse Pulse Resp Pulse Ox 06/21/17 12:43 36.6 C 81 17 92 06/21/17 08:07 76 20 06/21/17 08:01 36.4 C L 77 19 92 Intake & Output: Intake & Output 06/18/17 06/19/17 06/20/17 06/21/17 23:59 23:59 23:59 23:59 Intake Total 1700 Balance 1700 - Objective General Appearance: positive: No acute distress, Alert. negative: Lethargic Eyes Bilateral: positive: Normal inspection, PERRL, No lid inflammation, Conjunctivae nml ENT: positive: ENT inspection nml, Pharynx nml, No signs of dehydration. negative: Purulent nasal drainage, Pharyngeal erythema, Oral lesions Neck: positive: Nml inspection, Thyroid nml, Trachea midline. negative: Thyromegaly, Lymphadenopathy (R), Lymphadenopathy (L), Stiff neck, Carotid bruit , Swelling/bruising, Tracheal deviation Respiratory: positive: Chest non-tender, No respiratory distress, Breath sounds nml. negative: Wheezes, Rales, Rhonchi Cardiovascular: positive: Regular rate & rhythm, No murmur. negative: Irregularly irregular, Extrasystoles, Tachycardia, Bradycardia, Systolic murmur , Diastolic murmur Peripheral Pulses: 2+ Radial (R), 2+ Radial (L), 2+ Dorsalis pedis (R), 2+ Dorsalis pedis (L) Abdomen: positive: Non-tender, No organomegaly, Nml bowel sounds, Bruit. negative: No distention, Tenderness, Guarding, Rebound Back: positive: Nml inspection. negative: CVA tenderness (R), CVA tenderness (L ) Skin: positive: Color nml, No rash, Warm, Dry. negative: Cyanosis, Diaphoresis , Pallor, Skin rash Extremities: positive: Non-tender, Full ROM, Nml appearance. negative: Calf tenderness, Joint swelling, Otilio's sign/cords Neurologic/Psychiatric: positive: Oriented x3, Motor nml, Sensation nml, Mood/ affect nml. negative: Weakness, Sensory loss, Facial droop, Slurred/abnml speech, Depressed mood/affect - Lab Results Fish Bones: 06/21/17 11:56 06/21/17 05:25 Other Labs: Lab Results x24hrs 06/21/17 06/21/17 06/21/17 Range/Units 11:56 10:57 08:45 WBC 15.0 H (4.8-10.8) x10^3/uL RBC 3.59 L (4.70-6.10) 10^6/uL Hgb 11.2 L 10.9 L (14.0-18.0) g/dL Hct 33.9 L 32.7 L (42.0-52.0) % MCV 94.5 H (80.0-94.0) fL MCH 31.2 H (27.0-31.0) pg MCHC 33.1 (32.0-36.0) g/dL RDW 14.9 (12.0-15.0) % Plt Count 257 (130-450) 10^3/uL MPV 6.7 L (7.4-11.4) fL Neut # 12.2 H (1.5-6.6) 10^3/uL Lymph # 1.4 L (1.5-3.5) 10^3/uL Dawson # 1.3 H (0.0-1.0) 10^3/uL Eos # 0.0 (0.0-0.7) 10^3/uL Baso # 0.1 (0.0-0.1) 10^3/uL Absolute Nucleated RBC 0.01 x10^3/uL Nucleated RBC % 0.0 /100WBC PT (9.9-12.6) secs INR (0.8-1.2) Sodium (135-145) mmol/L Potassium (3.5-5.0) mmol/L Chloride (101-111) mmol/L Carbon Dioxide (21-32) mmol/L Anion Gap (6-13) BUN (6-20) mg/dL Creatinine (0.6-1.2) mg/dL Estimated GFR (MDRD) (>89) Glucose (70-100) mg/dL Calcium (8.5-10.3) mg/dL Total Bilirubin (0.2-1.0) mg/dL AST (10-42) IU/L ALT (10-60) IU/L Alkaline Phosphatase (42-121) IU/L Total Creatine Kinase 206 (22-269) IU/L Total Protein (6.7-8.2) g/dL Albumin (3.2-5.5) g/dL Globulin (2.1-4.2) g/dL Albumin/Globulin Ratio (1.0-2.2) Urine Color Urine Clarity (CLEAR) Urine pH (5.0-7.5) PH Ur Specific Eola (1.002-1.030) Urine Protein (NEGATIVE) mg/dL Urine Glucose (UA) (NEGATIVE) mg/dL Urine Ketones (NEGATIVE) mg/dL Urine Occult Blood (NEGATIVE) Urine Nitrite (NEGATIVE) Urine Bilirubin (NEGATIVE) Urine Urobilinogen (NORMAL) E.U./dL Ur Leukocyte Esterase (NEGATIVE) Ur Microscopic Review Urine Culture Comments 06/21/17 06/21/17 06/21/17 Range/Units 06:33 05:25 05:25 WBC 13.4 H (4.8-10.8) x10^3/uL RBC 3.64 L (4.70-6.10) 10^6/uL Hgb 11.5 L (14.0-18.0) g/dL Hct 34.7 L (42.0-52.0) % MCV 95.4 H (80.0-94.0) fL MCH 31.5 H (27.0-31.0) pg MCHC 33.0 (32.0-36.0) g/dL RDW 15.3 H (12.0-15.0) % Plt Count 216 (130-450) 10^3/uL MPV 6.8 L (7.4-11.4) fL Neut # 10.8 H (1.5-6.6) 10^3/uL Lymph # 1.2 L (1.5-3.5) 10^3/uL Dawson # 1.4 H (0.0-1.0) 10^3/uL Eos # 0.0 (0.0-0.7) 10^3/uL Baso # 0.0 (0.0-0.1) 10^3/uL Absolute Nucleated RBC 0.00 x10^3/uL Nucleated RBC % 0.0 /100WBC PT (9.9-12.6) secs INR (0.8-1.2) Sodium 136 (135-145) mmol/L Potassium 4.7 (3.5-5.0) mmol/L Chloride 101 (101-111) mmol/L Carbon Dioxide 25 (21-32) mmol/L Anion Gap 10.0 (6-13) BUN 24 H (6-20) mg/dL Creatinine 0.9 (0.6-1.2) mg/dL Estimated GFR (MDRD) 83 L (>89) Glucose 146 H (70-100) mg/dL Calcium 8.1 L (8.5-10.3) mg/dL Total Bilirubin 0.8 (0.2-1.0) mg/dL AST 26 (10-42) IU/L ALT 25 (10-60) IU/L Alkaline Phosphatase 37 L (42-121) IU/L Total Creatine Kinase (22-269) IU/L Total Protein 6.3 L (6.7-8.2) g/dL Albumin 3.6 (3.2-5.5) g/dL Globulin 2.7 (2.1-4.2) g/dL Albumin/Globulin Ratio 1.3 (1.0-2.2) Urine Color DARK YELLOW Urine Clarity CLEAR (CLEAR) Urine pH 6.0 (5.0-7.5) PH Ur Specific Eola 1.025 (1.002-1.030) Urine Protein NEGATIVE (NEGATIVE) mg/dL Urine Glucose (UA) NEGATIVE (NEGATIVE) mg/dL Urine Ketones NEGATIVE (NEGATIVE) mg/dL Urine Occult Blood NEGATIVE (NEGATIVE) Urine Nitrite NEGATIVE (NEGATIVE) Urine Bilirubin NEGATIVE (NEGATIVE) Urine Urobilinogen 0.2 (NORMAL) (NORMAL) E.U./dL Ur Leukocyte Esterase NEGATIVE (NEGATIVE) Ur Microscopic Review NOT INDICATED Urine Culture Comments NOT INDICATED 06/21/17 Range/Units 05:25 WBC (4.8-10.8) x10^3/uL RBC (4.70-6.10) 10^6/uL Hgb (14.0-18.0) g/dL Hct (42.0-52.0) % MCV (80.0-94.0) fL MCH (27.0-31.0) pg MCHC (32.0-36.0) g/dL RDW (12.0-15.0) % Plt Count (130-450) 10^3/uL MPV (7.4-11.4) fL Neut # (1.5-6.6) 10^3/uL Lymph # (1.5-3.5) 10^3/uL Dawson # (0.0-1.0) 10^3/uL Eos # (0.0-0.7) 10^3/uL Baso # (0.0-0.1) 10^3/uL Absolute Nucleated RBC x10^3/uL Nucleated RBC % /100WBC PT 11.4 (9.9-12.6) secs INR 1.0 (0.8-1.2) Sodium (135-145) mmol/L Potassium (3.5-5.0) mmol/L Chloride (101-111) mmol/L Carbon Dioxide (21-32) mmol/L Anion Gap (6-13) BUN (6-20) mg/dL Creatinine (0.6-1.2) mg/dL Estimated GFR (MDRD) (>89) Glucose (70-100) mg/dL Calcium (8.5-10.3) mg/dL Total Bilirubin (0.2-1.0) mg/dL AST (10-42) IU/L ALT (10-60) IU/L Alkaline Phosphatase (42-121) IU/L Total Creatine Kinase (22-269) IU/L Total Protein (6.7-8.2) g/dL Albumin (3.2-5.5) g/dL Globulin (2.1-4.2) g/dL Albumin/Globulin Ratio (1.0-2.2) Urine Color Urine Clarity (CLEAR) Urine pH (5.0-7.5) PH Ur Specific E[place] (1.002-1.030) Urine Protein (NEGATIVE) mg/dL Urine Glucose (UA) (NEGATIVE) mg/dL Urine Ketones (NEGATIVE) mg/dL Urine Occult Blood (NEGATIVE) Urine Nitrite (NEGATIVE) Urine Bilirubin (NEGATIVE) Urine Urobilinogen (NORMAL) E.U./dL Ur Leukocyte Esterase (NEGATIVE) Ur Microscopic Review Urine Culture Comments Assessment/Plan - Problem List (1) Abdominal hematoma Impression: (1) Abdominal hematoma Conclusion/Plan: consult and call with surgeon, if pt's HGB continue to drop, and symptomatic and with growing of hematoma, pt may need CTA to r/o acute bleeding to the hematoma H&H monitor pt closely monitor vital, tele pain control Cough suppression with Mucinex and codeine Patient presented with right lower rib cage and right flank pain. Patient's pain started after several days of severe coughing spells. Patient noted to have bruising in the right abdominal wall around to the right flank. CT abdomen pelvis showed moderate sized hematoma centered around the lateral aspects of the right 10th and 11th ribs involving the subcutaneous tissue, intercostal musculature and with extension into the retroperitoneum. No definite active bleeding was seen but close clinical monitoring was suggested. The patient's hemoglobin was stable and vital signs were stable on presentation. Patient did have severe pain which did subside with morphine IV. The patient denied any trauma. He denied any use of blood thinners or alcohol. Although this appears to be quite a large hematoma for someone to obtain just from severe coughing spells in the setting of not being on any anticoagulation or having had any bleeding disorders. It appears from the patient's history that this is the most likely cause of the patient's hematoma. According to emergency room physicians there is some suspicion for patient abusing alcohol although the patient denies this. If in fact the patient was abusing alcohol it is possible that the patient could have fallen and this could be a hematoma secondary to trauma to the area. Plan: We will monitor the patient closely in observation Monitor H&H every 6 hours Monitor blood pressure closely Transfuse if hemoglobin drops below 7 Type and cross Surgery consult Consider transfer for IR embolization if patient has any significant drop in hemoglobin or has continued bleeding. Pain control with IV morphine Cough suppression with Mucinex and codeine (2) CAP (community acquired pneumonia) Conclusion/Plan: continue Kflex continue INH treatment pt state he still has cough, order CXR Cough suppression with Mucinex and codeine Patient was diagnosed with allergic bronchitis and community-acquired pneumonia over the last week. Patient has had persistent cough. Patient does have mild leukocytosis but has no fevers or hypoxia. Plan: Patient will be continued on his home dose of Keflex for treatment of community- acquired pneumonia Patient will be given nebulizers as needed Patient will be continued on his home dose of steroid Oxygen as needed Mucinex and codeine for cough suppression (3) COPD (chronic obstructive pulmonary disease) Conclusion/Plan: continue INH treatment O2 supplement with NC as needed Patient has history of chronic bronchitis and did have exacerbation of COPD recently with pneumonia. Patient is on oral steroid and antibiotics at home. We will continue the patient's home medications and place him on nebs as needed. Patient's COPD appears to be stable. (4) Hypertension Conclusion/Plan: stable, resume home meds vital monitor Patient has history of hypertension and is on metoprolol at home. Patient states that his blood pressure was elevated at home when he was in significant pain and doubled his dose of his metoprolol. On presentation to the emergency department the patient's blood pressure is stable. We will monitor patient's blood pressure in the case that he does drop his hemoglobin or continues to bleed. We will continue patient's antihypertensive medications as long as blood pressure remains stable.
--- NOTE | 2017-06-21 16:42 | CONSULTATION NOTE ---
DATE OF CONSULTATION: 06/20/2017 00:00:00 REASON FOR CONSULTATION: Flank hematoma. HISTORY OF PRESENT ILLNESS: This is a 72-year-old gentleman with frequent visits to the emergency department who presented to the emergency department last Tuesday complaining of a cough and pain. He was noted to have bronchitis and was prescribed Keflex, Decadron, Tessalon, and Tylenol No. 3. He was also instructed to followup with Radha Garcia in [place]. He came back to the hospital this evening complaining of a large hematoma on his right flank. He denies any trauma to the area. He states that he was coughing violently and felt a sharp pain in this area and subsequently noticed the hematoma. He underwent a CT scan was performed in the emergency department, which demonstrated a large soft tissue flank hematoma extending into the retroperitoneum displacing the right kidney. The CT scan was performed with IV contrast and no vascular extravasation was noted. The patient was noted to be hemodynamically stable upon evaluation in the emergency department, his hemoglobin and hematocrit were noted to be 13 and 39. He was subsequently admitted to the medical service and a surgical consultation obtained. Upon my evaluation of the patient, he has remained hemodynamically stable this morning with only a slight dip in his H and H from to . He denies any previous history of bleeding diathesis. There is some suggestion of alcohol abuse in his previous history; however, he denies this. His INR, LFTs and kidney function are all grossly within normal limits; however, his BUN is slightly elevated. He has remained hemodynamically stable since his admission to the hospital. PAST MEDICAL HISTORY: Hypertension, coronary artery disease status post CABG, arrhythmia status with SVT ablation, COPD, pneumonia, peptic ulcer disease, hiatal hernia, diverticulosis, chronic sinusitis, BPH, nocturia, depression, anxiety, claustrophobia, osteoarthritis, chronic back pain. PAST SURGICAL HISTORY: Cholecystectomy, hip replacement, knee replacement, CABG. SOCIAL HISTORY: The patient is and lives with his . He used to smoke 1/2 pack a day for 20 years. He does admit to drinking socially. PHYSICAL EXAMINATION: VITAL SIGNS: Temperature is 36.6, blood pressure 129/68, heart rate 81, respiratory rate 17. O2 saturation is 97% on room air. GENERAL: The patient is awake, alert, oriented x3, in no acute distress. He is of average build. CARDIOVASCULAR: Regular rate and rhythm. CHEST: Clear to auscultation bilaterally without rhonchi or wheezing. ABDOMEN: His right flank demonstrates a large hematoma with dark purplish discoloration which has been demarcated in the ER and has not extended beyond the lines of demarcation in the past 12 hours. There is no tension to the area and the soft tissue is noted to be soft. It is slightly tender to light palpation. EXTREMITIES: Well perfused. LABORATORY VALUES: White blood cell count 15.0. Hemoglobin 10.9, hematocrit 32.7 , platelets 257. INR 1.0. PT 11.4. Sodium 136, potassium 4.7, chloride 101, bicarbonate 25, BUN 24, creatinine 0.9, glucose 146, bilirubin 0.8, AST 26, ALT 25, alkaline phosphatase 37. ASSESSMENT: This is a 72-year-old gentleman with a flank and retroperitoneal hematoma of unknown etiology. According to the patient's history this is considered to be spontaneous. PLAN: The patient should be monitored for signs of persistent bleeding and if these occur, he will need a CT angiogram to assess for potential extravasation. If extravasation is noted he would require transfer to a center that is capable of performing intravascular embolization of the bleeding vessel. In the interim , he should place ice to the hematoma 3-4 times daily for 20 minutes at a time and should be treated for his COPD exacerbation and cough. JOB #: [id number] EXT JOB #:[id number] RICKY
[2017-06-21 18:03] LABS: BASOPHILS % (AUTO) 0.2 %; HCT - HEMATOCRIT 33.4 % (42.0-52.0); HGB - HEMOGLOBIN 11.1 g/dL (14.0-18.0); LYMPHOCYTES # (AUTO) 0.9 10^3/uL (1.5-3.5); LYMPHOCYTES % (AUTO) 8.9 %; MEAN CORPUSCULAR HEMOGLOBIN 31.3 pg (27.0-31.0); MEAN CORPUSCULAR HGB CONC 33.2 g/dL (32.0-36.0); MEAN CORPUSCULAR VOLUME 94.2 fL (80.0-94.0); MEAN PLATELET VOLUME 6.8 fL (7.4-11.4); MONOCYTES # (AUTO) 0.9 10^3/uL (0.0-1.0); MONOCYTES % (AUTO) 8.3 %; NEUTROPHILS # (AUTO) 8.7 10^3/uL (1.5-6.6); NEUTROPHILS % (AUTO) 82.6 %; RED BLOOD COUNT 3.54 10^6/uL (4.70-6.10); UNCORRECTED WHITE BLOOD COUNT 10.5 x10^3/uL; WHITE BLOOD COUNT 10.5 x10^3/uL (4.8-10.8)
[2017-06-21] MEDS: METOPROLOL SUCCINATE 50 MG TABLET PO SCH (20:19)
[2017-06-21] MEDS ORDERED: METOPROLOL TARTRATE 50 MG TABLET PO SCH (21:00)
[2017-06-22] MEDS: oxyCODONE 5 MG TABLET PO PRN ×4 (00:41→13:18)
[2017-06-22 00:52] LABS: BASOPHILS % (AUTO) 0.2 %; EOSINOPHILS % (AUTO) 0.2 %; HCT - HEMATOCRIT 32.6 % (42.0-52.0); HGB - HEMOGLOBIN 10.8 g/dL (14.0-18.0); LYMPHOCYTES # (AUTO) 1.8 10^3/uL (1.5-3.5); LYMPHOCYTES % (AUTO) 14.8 %; MEAN CORPUSCULAR HEMOGLOBIN 31.5 pg (27.0-31.0); MEAN CORPUSCULAR HGB CONC 33.1 g/dL (32.0-36.0); MEAN CORPUSCULAR VOLUME 95.2 fL (80.0-94.0); MONOCYTES # (AUTO) 1.2 10^3/uL (0.0-1.0); MONOCYTES % (AUTO) 10.3 %; NEUTROPHILS # (AUTO) 8.8 10^3/uL (1.5-6.6); NEUTROPHILS % (AUTO) 74.5 %; RED BLOOD COUNT 3.43 10^6/uL (4.70-6.10); RED CELL DISTRIBUTION WIDTH 14.5 % (12.0-15.0); UNCORRECTED WHITE BLOOD COUNT 11.9 x10^3/uL; WHITE BLOOD COUNT 11.9 x10^3/uL (4.8-10.8)
[2017-06-22 01:03] LABS: ALBUMIN/GLOBULIN RATIO 1.6 (1.0-2.2); BILIRUBIN,TOTAL 0.7 mg/dL (0.2-1.0); CALCIUM 8.5 mg/dL (8.5-10.3); CREATININE 0.9 mg/dL (0.6-1.2); POTASSIUM 4.5 mmol/L (3.5-5.0); TOTAL PROTEIN 6.9 g/dL (6.7-8.2)
[2017-06-22] MEDS: SODIUM CHLORIDE FLUSH 0.9% 10 ML SYRINGE IVP PRN (03:57)
[2017-06-22] MEDS: MORPHINE 2 MG/ML SYRINGE IVP PRN ×3 (03:57→12:24)
[2017-06-22] MEDS: LORazepam 0.5 MG TABLET PO SCH ×2 (05:57→13:17)
[2017-06-22] MEDS: cephALEXin 250 MG CAPSULE PO SCH ×2 (05:57→13:17)
[2017-06-22] MEDS: SODIUM CHLORIDE FLUSH 0.9% 10 ML SYRINGE IVP SCH ×2 (05:58→13:29)
[2017-06-22 06:09] LABS: BASOPHILS % (AUTO) 0.3 %; EOSINOPHILS # (AUTO) 0.1 10^3/uL (0.0-0.7); EOSINOPHILS % (AUTO) 0.6 %; HCT - HEMATOCRIT 28.7 % (42.0-52.0); HGB - HEMOGLOBIN 9.7 g/dL (14.0-18.0); LYMPHOCYTES # (AUTO) 1.9 10^3/uL (1.5-3.5); MEAN CORPUSCULAR HEMOGLOBIN 31.9 pg (27.0-31.0); MEAN CORPUSCULAR HGB CONC 33.7 g/dL (32.0-36.0); MEAN CORPUSCULAR VOLUME 94.6 fL (80.0-94.0); MEAN PLATELET VOLUME 7.2 fL (7.4-11.4); MONOCYTES # (AUTO) 1.2 10^3/uL (0.0-1.0); MONOCYTES % (AUTO) 12.9 %; NEUTROPHILS # (AUTO) 6.3 10^3/uL (1.5-6.6); NEUTROPHILS % (AUTO) 66.2 %; NUCLEATED RED BLOOD CELLS AUTO 0.1 /100WBC; RED BLOOD COUNT 3.03 10^6/uL (4.70-6.10); RED CELL DISTRIBUTION WIDTH 14.9 % (12.0-15.0); UNCORRECTED WHITE BLOOD COUNT 9.6 x10^3/uL; WHITE BLOOD COUNT 9.6 x10^3/uL (4.8-10.8)
[2017-06-22] MEDS: LEVALBUTEROL 1.25 MG/0.5 ML NEB INH PRN (08:00)
[2017-06-22] MEDS ORDERED: IOPAMIDOL-300 100 ML VIAL ONE (08:14)
[2017-06-22 08:44] VITALS: BP 117/58
[2017-06-22] MEDS ORDERED: DEXAMETHASONE 4 MG TABLET PO SCH (09:00)
[2017-06-22] MEDS: METOPROLOL SUCCINATE 50 MG TABLET PO SCH (09:23)
[2017-06-22] MEDS: LORATADINE 10 MG TABLET PO SCH (09:23)
[2017-06-22] MEDS: FAMOTIDINE 20 MG TABLET PO SCH (09:30)
[2017-06-22] MEDS: ACETAMINOPHEN 325 MG TABLET PO PRN (09:33)
--- NOTE | 2017-06-22 10:05 | CT Report ---
CT ANGIOGRAM OF ABDOMEN AND PELVIS: 06/22/2017 CLINICAL INDICATION: Hemoglobin drop, question enlargement of right hematoma. COMPARISON: 06/20/2017. TECHNIQUE: Axial CT images of the abdomen and pelvis were obtained with 100 mL of Isovue-300 intraven ously in arterial phase of enhancement. FINDINGS: Limited evaluation of the lung bases demonstrates right basilar atelectasis. ABDOMEN: The right retroperitoneal hematoma is again seen. There is no evidence of active contrast ex travasation. The retroperitoneal component has decreased slightly in size, now measuring 13.3 x 4.5 c m (previously 13.8 x 5.8 cm at a similar level). The intramuscular component appears unchanged, as do es the extension into the subcutaneous fat. The liver again demonstrates fatty infiltration. The abraham ent is status post cholecystectomy. The spleen, pancreas, kidneys and adrenal glands appear unremarka ble, allowing for the phase of contrast enhancement. No bowel dilatation, free gas, or free fluid is present. No abdominal adenopathy is seen. PELVIS: Colonic diverticulosis is again seen. No pelvic adenopathy or free fluid is present. The osseous structures demonstrate degenerative and postsurgical changes. IMPRESSION: SLIGHT INTERVAL DECREASE IN SIZE OF THE RETROPERITONEAL HEMATOMA. NO EVIDENCE OF ACTIVE CONTRAST EXTRAVASATION. In accordance with CT protocol optimization, one or more of the following dose reduction techniques w ere utilized for this exam: automated exposure control, adjustment of mA and/or KV based on patient size, or use of iterative reconstructive technique. JOB #: [id number] EXT JOB #:[id number]
[2017-06-22] MEDS ORDERED: IOPAMIDOL-300 100 ML VIAL IVP ONE (11:03)
[2017-06-22 11:36] LABS: HCT - HEMATOCRIT 30.2 % (42.0-52.0); HGB - HEMOGLOBIN 10.3 g/dL (14.0-18.0)
--- NOTE | 2017-06-22 12:12 | Discharge Plan ---
Discharge Plan Disposition: 01 Home, Self Care Condition: Stable Prescriptions: oxyCODONE [Roxicodone] 5 mg PO Q4HR PRN #20 tablet PRN Reason: Pain 5 to 7 guaiFENesin/CODEINE [Robitussin AC] 5 ml PO Q6HR PRN #15 udc PRN Reason: Cough Diet: Regular Activity Restrictions: Activity as Tolerated Shower Restrictions: No Weight Bearing: Full Weight Additional Instructions or Follow Up instructions: May see PCP in one week. Should symptoms return or worsen, please call 911 or go to the nearest ER. Follow-Up Care: [facility] - Pulmonary, [facility] [place] [facility] - Medical No Smoking: If you smoke, Please STOP! Call for help. Follow-up with: OLIVERIO BARTH [Primary Care Provider] -
[2017-06-22] MEDS: POLYETHYLENE GLYCOL 3350 17 GM PACKET PO SCH (12:25)
--- NOTE | 2017-06-22 12:53 | DISCHARGE SUMMARY ---
Discharge Summary Admit Date: 06/20/17 Discharge Date: 06/22/17 Discharging Provider: DWYER Primary Care Provider: Dr Elaine Armstrong Condition at Discharge: Stable Discharge Disposition: 01 Home, Self Care Discharge Facility Name: home - DIAGNOSES Admission Diagnoses: (1) Abdominal hematoma (2) CAP (community acquired pneumonia) (3) COPD (chronic obstructive pulmonary disease) (4) Hypertension Discharge Diagnoses with Status of Each Condition: (1) Abdominal hematoma is becoming small and stable. CTA reveals no active extravasation (2) CAP (community acquired pneumonia) stable, room air 94% SO2, no fever, chill. continue to finish antibiotics course. (3) COPD (chronic obstructive pulmonary disease) stable, continue home medical regime (4) Hypertension stable - HPI History of Present Illness: please refer from Dr. Wetzel's HPI on 06/21/17 as the following: Patient is a 72-year-old gentleman with a past medical history significant for achalasia, chronic low back pain, right rotator cuff tear, COPD, coronary artery disease status post CABG, frequent PVCs status post ablation, hypertension and depression who presented to the emergency department with a chief complaint of right lower rib and flank pain. The patient states that he has been having severe coughing for the last 10 days. He was diagnosed with pneumonia and allergic bronchitis and is currently on a cough suppressant, Mucinex, steroids and antibiotics. The patient states that his coughing continued to worsen until just 2 days ago when he is a he states that he had continuous coughing and felt as though he had a crack in the mid back area near his ribs. He states that he noticed some bruising in that area after he heard a crack. He states that area became very painful not just with coughing but also when he was not coughing. He states today he began having persistent coughing again despite taking the Mucinex. He states the coughing got worse and worse throughout the day and then he began having severe pain in the right lower rib rib and right flank area. He noticed that the bruising that was on his right flank/lower rib area had now made its way around to the anterior lower rib area. He states that his pain was so severe that he decided to come into the emergency department. He states that despite taking pain medication at home he could not get the pain controlled. The patient denies any fevers or chills. He denies any increased shortness of air. The patient denies any hemoptysis or hematemesis. The patient states he is not on any blood thinners. The patient denies any drinking. Patient denies any headache, blurred vision, runny nose, sore throat, nasal congestion, he does have chronic difficulty swallowing. He denies any neck pain , he denies any urinary urgency, urinary frequency, dysuria, he does admit to right shoulder pain and arm weakness. He also admits to chronic back pain. He denies any recent unintentional weight loss. He denies any changes in his appetite. Patient denies any focal neurologic deficits. On presentation to the emergency department the patient was afebrile and vital signs were all within normal limits. The patient was in acute distress as he was in severe pain. The patient was given 4 mg of IV morphine with which the patient's pain did subside. When examined the patient appear to have severe deep bruising in the right lower anterior rib cage area as well as on the right flank area. The patient's lab work revealed a hemoglobin of 13.2 which was near his baseline. The remainder of the patient's lab work was within normal limits. The patient underwent a CT of his abdomen and pelvis which did reveal a moderate sized hematoma centered around the lateral aspect of the 10th and 11th ribs involving the subcutaneous tissue, intercostal musculature and with extension into the retroperitoneum. There was no definite active bleeding seen on the CT scan. There was no displaced rib fractures identified on the CT scan. When asked the patient denied any trauma to the area. The patient was placed in observation for further observation of the hematoma and monitoring of his H&H. - HOSPITAL COURSE Hospital Course: pt was admitted for evaluation of hematoma at right lateral upper abdomen area derived from pt's cough per pt's statement. Surgeon was consulted. The hematoma is becoming small, and there is no active extravascution by CTA. Pt state his pain is better as well. Pt is advised to follow up PCP. Pt is advised, should symptoms return or worsen, please call 911 or return to ER. All pt's questions are answered. - ALLERGIES Allergies/Adverse Reactions: Allergies Allergy/AdvReac Type Severity Reaction Status Date / Time albuterol Allergy Severe heart Verified 06/20/17 19:55 palpatation pantoprazole sodium * Allergy Intermediate Nausea Verified 06/20/17 19:55 [From Protonix] Kcfgkea-Gaf-Mbk Reductase Allergy Intermediate Unknown Verified 06/20/17 19:55 Inhibitor Sulfa (Sulfonamide Allergy Intermediate Rash Verified 06/20/17 19:55 Antibiotics) latex Allergy Mild Itching Verified 06/20/17 19:55 - MEDICATIONS Home Medications: Ambulatory Orders Medication Instructions Recorded Confirmed Lorazepam [Ativan] 1 mg PO TID 01/03/17 06/21/17 Acetaminophen/Cod 300/30 [Tylenol 1 each PO QID PRN #18 tablet 06/18/17 06/21/17 #3] Cephalexin [Keflex] 500 mg PO [id number] 06/21/17 06/21/17 Levalbuterol Tartrate [Xopenex Hfa] 2 puffs INH Q4H PRN 06/21/17 06/21/17 Loratadine [Claritin] 10 mg PO DAILY 06/21/17 06/21/17 Metoprolol Succinate [Toprol Xl] 100 mg PO BID 06/21/17 06/21/17 traZODone [Desyrel] 50 mg PO QPM PRN 06/21/17 06/21/17 traZODone [Desyrel] 300 mg PO QPM 06/21/17 06/21/17 guaiFENesin/CODEINE [Robitussin AC] 5 ml PO Q6HR PRN #15 udc 06/22/17 oxyCODONE [Roxicodone] 5 mg PO Q4HR PRN #20 tablet 06/22/17 - PHYSICAL EXAM AT DISCHARGE General Appearance: positive: No acute distress, Alert. negative: Lethargic Eyes Bilateral: positive: Normal inspection, PERRL, EOMI, No lid inflammation, Conjunctivae nml ENT: positive: ENT inspection nml, Pharynx nml, No signs of dehydration. negative: Purulent nasal drainage, Pharyngeal erythema, Oral lesions Neck: positive: Nml inspection, Thyroid nml, Trachea midline. negative: Thyromegaly, Lymphadenopathy (R), Stiff neck, Carotid bruit, Swelling/bruising, Tracheal deviation Respiratory: positive: Chest non-tender, No respiratory distress, Breath sounds nml. negative: Wheezes, Rales, Rhonchi Cardiovascular: positive: Regular rate & rhythm, No murmur, No gallop. negative : Irregularly irregular, Extrasystoles, Tachycardia, Bradycardia, Systolic murmur, Diastolic murmur Peripheral Pulses: positive: 2+ Abdomen: positive: Non-tender, No organomegaly, Nml bowel sounds, No distention. negative: Tenderness, Guarding, Rebound Back: positive: Nml inspection. negative: CVA tenderness (R), CVA tenderness (L ) Skin: positive: Color nml, No rash, Warm, Dry. negative: Cyanosis, Diaphoresis , Pallor, Skin rash Extremities: positive: Non-tender, Full ROM, Nml appearance. negative: Pedal edema, Joint swelling, Otilio's sign/cords Neurologic/Psychiatric: positive: Oriented x3, Motor nml, Sensation nml, Mood/ affect nml. negative: Sensory loss, Facial droop, Slurred/abnml speech, Depressed mood/affect - LABS Result Diagrams: 06/22/17 11:23 06/22/17 00:25 - FOLLOW UP Follow Up: May follow up PCP in one week. Pt is advised, should symptoms return or worsen, call 911 or return ER.
== END 2017-06-22 13:30 | disposition home or self-care (01) ==
LOC: ED 19:43 → OBS 23:52
PROVIDERS: ADMIT Internal Medicine; ATTEND Nurse Practitioner Gerontology
DX: S36.892A Contusion of other intra-abdominal organs, initial encounter (principal); X50.9XXA Other and unspecified overexertion or strenuous movements or postures, initial encounter; J18.9 Pneumonia, unspecified organism; J44.0 Chronic obstructive pulmonary disease with (acute) lower respiratory infection; I10 Essential (primary) hypertension; K22.0 Achalasia of cardia; G89.29 Other chronic pain; M54.9 Dorsalgia, unspecified; I25.10 Atherosclerotic heart disease of native coronary artery without angina pectoris; R13.10 Dysphagia, unspecified; F32.9 Major depressive disorder, single episode, unspecified; F40.240 Claustrophobia; M19.90 Unspecified osteoarthritis, unspecified site; K21.9 Gastro-esophageal reflux disease without esophagitis; K44.9 Diaphragmatic hernia without obstruction or gangrene; N40.1 Benign prostatic hyperplasia with lower urinary tract symptoms; R35.1 Nocturia; Z79.51 Long term (current) use of inhaled steroids; Z79.52 Long term (current) use of systemic steroids; Z79.899 Other long term (current) drug therapy; Z95.1 Presence of aortocoronary bypass graft; Z96.649 Presence of unspecified artificial hip joint; Z96.659 Presence of unspecified artificial knee joint; Z87.891 Personal history of nicotine dependence; Z87.11 Personal history of peptic ulcer disease
CPT/HCPCS: 36415; 71020; 74174; 74177; 80053; 81003; 82550; 83690; 85014; 85018; 85025; 85610; 85730; 86850; 86900; 86901; 94640; 96361; 96374; 96375; 96376; 99283; 99284; A9270; G0378; J2270; J8540; Q9967; 81001; 87086

== ENCOUNTER 2017-06-25 09:29 | Emergency (ER) | payer MEDICARE ==
[2017-06-25 09:38] VITALS: BP 173/82
--- NOTE | 2017-06-25 10:14 | ED Physician Documentation ---
History of Present Illness - Stated complaint Stated Complaint: R SIDE BRUISE-PX - Chief complaint Chief Complaint: Abd Pain - History obtained from History obtained from: Patient (Pt states that aprox 10 days ago he was diagnosed with PNA and is on ABX. a couple days after that he was coughing so hard that he felt a "pop" in his right sided that led to a large bruise on his right side and lower ABD> he spent a couple days in the hospital for this to check his H/H and had CT scans for evaluation. He was discharged from the hospital a couple days ago and had a follow up with his PCM yesterday. He is here today because he states that he ran out of his pain meds yesterday and stated that they tylenol #3 that he did have wa not working. He reports that his breathing is worse because of the pain. No fevers but does have some nausea.) Review of Systems Constitutional: denies: Fever, Chills Cardiac: denies: Chest pain / pressure, Palpitations Respiratory: reports: Dyspnea, Cough, Wheezing GI: reports: Abdominal Pain, Nausea. denies: Vomiting, Constipation, Diarrhea : denies: Dysuria, Frequency Skin: reports: Lesions (right side and lower ABD). denies: Rash Musculoskeletal: denies: Extremity pain Neurologic: denies: Generalized weakness, LOC PD PAST MEDICAL HISTORY - Past Medical History Cardiovascular: Hypertension, Coronary artery disease, [place], Atrial fibrillation Respiratory: Asthma, COPD Neuro: None Endocrine/Autoimmune: None GI: GERD, Hiatal hernia, Diverticulitis : Benign prostate hypertrophy, Nocturia HEENT: Chronic sinusitis Psych: Depression, Anxiety, Claustrophobia Musculoskeletal: Osteoarthritis, Chronic back pain, Other Derm: Herpes zoster, Other - Past Surgical History Past Surgical History: Yes General: Cholecystectomy, EGD Ortho: Hip replacement, Knee replacement, Other Cardiovascular: CABG, Other HEENT: Other - Present Medications Home Medications: Ambulatory Orders Medication Instructions Recorded Confirmed Lorazepam [Ativan] 1 mg PO TID 01/03/17 06/25/17 Acetaminophen/Cod 300/30 [Tylenol 1 each PO QID PRN #18 tablet 06/18/17 06/25/17 #3] Cephalexin [Keflex] 500 mg PO [id number] 06/21/17 06/25/17 Levalbuterol Tartrate [Xopenex Hfa] 2 puffs INH Q4H PRN 06/21/17 06/25/17 Loratadine [Claritin] 10 mg PO DAILY 06/21/17 06/25/17 Metoprolol Succinate [Toprol Xl] 100 mg PO BID 06/21/17 06/25/17 traZODone [Desyrel] 300 mg PO QPM 06/21/17 06/25/17 guaiFENesin/CODEINE [Robitussin AC] 5 ml PO Q6HR PRN #15 udc 06/22/17 06/25/17 Ondansetron Odt [Zofran Odt] 4 mg PO Q6H PRN #10 tablet 06/25/17 oxyCODONE/ACET 5/325 [Percocet 5 1 each PO Q6H PRN #8 tablet 06/25/17 mg/325 mg] - Allergies Allergies/Adverse Reactions: Allergies Allergy/AdvReac Type Severity Reaction Status Date / Time albuterol Allergy Severe heart Verified 06/20/17 19:55 palpatation pantoprazole sodium * Allergy Intermediate Nausea Verified 06/20/17 19:55 [From Protonix] Qyylopk-Tad-Zhz Reductase Allergy Intermediate Unknown Verified 06/20/17 19:55 Inhibitor Sulfa (Sulfonamide Allergy Intermediate Rash Verified 06/20/17 19:55 Antibiotics) latex Allergy Mild Itching Verified 06/20/17 19:55 - Social History Does the pt smoke?: No Smoking Status: Never smoker Does the pt drink ETOH?: Yes Does the pt have substance abuse?: No - Immunizations Immunizations are current?: Yes - POLST Patient has POLST: No POLST Status: Full Code PD ED PE NORMAL - Vitals Vital signs reviewed: Yes - General General: Alert and oriented X 3 - Cardiac Cardiac: RRR. No: No murmur (2/6 ROBERTO) - Respiratory Respiratory: No respiratory distress. No: Clear bilaterally (bilateral lower lung wheezing) - Abdomen Abdomen: Soft, Non distended. No: Non tender (pt with a large bruise on the right side and bilateral lower abd that is tender to palpation ) - Back Back: No CVA TTP - Derm Derm: Other (large purple bruise on the right side and lower ABD, ) - Extremities Extremities: No deformity - Neuro Neuro: Alert and oriented X 3 - Psych Psych: Normal mood, Normal affect Results - Vitals Vitals: Vital Signs - 24 hr 06/25/17 09:34 Temperature 36.2 C L Heart Rate 71 Respiratory 17 Rate Blood Pressure 173/82 H O2 Saturation 95 Oxygen O2 Source [With Activity] Room air O2 Source Room air PD MEDICAL DECISION MAKING - ED course Complexity details: d/w patient ED course: pt's bruise is outlined by his PCM from yesterday and has not moved outside that line. he is not in respiratory distress, has a soft but tender ABD over the bruise. I do not suspect that the bruise is worsening or he is having continued bleeding. He states that his respiratory status is worsened by his pain because he cannot take a deep breath. he is currently on ABX and albuterol. After reviewing his medication history he was given 20 percocet on 06/22 9day of discharge) and states that he ran out yesterday. he states that he did not talk to his PCM yesterday about this because he thought he could use the tylenol 3 that he had but they were not working. He was specifically asking for percocet. When confronted about his 20 he received he stated that he took 2 tabs sometimes. I informed him that i would give him some percocet to get him to tuesday and he needed to call his PCM to discuss further meds. he has a hx of narcotic abuse in the past. I have some concern about drug seeking behavior. Departure - Departure Disposition: 01 Home, Self Care Clinical Impression: Contusion Qualifiers: Encounter type: subsequent encounter Contusion area: abdominal wall Qualified Code(s): S30.1XXD - Contusion of abdominal wall, subsequent encounter Condition: Good Instructions: Bruises Contusions Follow-Up: OLIVERIO BARTH [Primary Care Provider] - Prescriptions: Ondansetron Odt [Zofran Odt] 4 mg PO Q6H PRN #10 tablet PRN Reason: Nausea / Vomiting oxyCODONE/ACET 5/325 [Percocet 5 mg/325 mg] 1 each PO Q6H PRN #8 tablet PRN Reason: Pain Comments: You need to follow up with your primary care provider for more meds if needed
== END 2017-06-25 10:27 | disposition home or self-care (01) ==
LOC: ED 09:29
DX: S30.1XXD Contusion of abdominal wall, subsequent encounter (principal); X58.XXXD Exposure to other specified factors, subsequent encounter; I10 Essential (primary) hypertension; I25.2 Old myocardial infarction; I25.10 Atherosclerotic heart disease of native coronary artery without angina pectoris; Z95.1 Presence of aortocoronary bypass graft; I48.91 Unspecified atrial fibrillation; J44.9 Chronic obstructive pulmonary disease, unspecified; J45.909 Unspecified asthma, uncomplicated; K21.9 Gastro-esophageal reflux disease without esophagitis; N40.0 Benign prostatic hyperplasia without lower urinary tract symptoms; M19.90 Unspecified osteoarthritis, unspecified site
CPT/HCPCS: 99283

== ENCOUNTER 2017-07-03 10:11 | Emergency (ER) | payer MEDICARE ==
[2017-07-03] MEDS ORDERED: oxyCOD/ACETAMIN 5 MG/325 MG TABLET PO STA (11:44)
[2017-07-03] MEDS ORDERED: oxyCOD/ACETAMIN 5 MG/325 MG TABLET PO ONE (12:01)
[2017-07-03] MEDS ORDERED: IOPAMIDOL-300 100 ML VIAL ONE (12:08)
[2017-07-03 12:15] LABS: BASOPHILS # (AUTO) 0.1 10^3/uL (0.0-0.1); BASOPHILS % (AUTO) 0.8 %; EOSINOPHILS # (AUTO) 0.2 10^3/uL (0.0-0.7); EOSINOPHILS % (AUTO) 3.6 %; HCT - HEMATOCRIT 35.1 % (42.0-52.0); HGB - HEMOGLOBIN 11.8 g/dL (14.0-18.0); LYMPHOCYTES # (AUTO) 1.2 10^3/uL (1.5-3.5); MEAN CORPUSCULAR HEMOGLOBIN 31.5 pg (27.0-31.0); MEAN CORPUSCULAR HGB CONC 33.7 g/dL (32.0-36.0); MEAN CORPUSCULAR VOLUME 93.6 fL (80.0-94.0); MONOCYTES # (AUTO) 0.7 10^3/uL (0.0-1.0); MONOCYTES % (AUTO) 9.8 %; NEUTROPHILS # (AUTO) 4.7 10^3/uL (1.5-6.6); NEUTROPHILS % (AUTO) 67.8 %; RED BLOOD COUNT 3.75 10^6/uL (4.70-6.10); RED CELL DISTRIBUTION WIDTH 14.4 % (12.0-15.0); UNCORRECTED WHITE BLOOD COUNT 6.9 x10^3/uL; WHITE BLOOD COUNT 6.9 x10^3/uL (4.8-10.8)
[2017-07-03 12:30] LABS: ALBUMIN/GLOBULIN RATIO 1.2 (1.0-2.2); BILIRUBIN,TOTAL 0.9 mg/dL (0.2-1.0); CREATININE 0.9 mg/dL (0.6-1.2); TOTAL PROTEIN 7.1 g/dL (6.7-8.2)
[2017-07-03] MEDS ORDERED: IOPAMIDOL-300 100 ML VIAL IVP ONE (12:58)
--- NOTE | 2017-07-03 13:29 | CT Preliminary Report ---
Exam: CT ABDOMEN/PELVIS W/ IMPRESSION: 1. Little if any interval change in size of the right retroperitoneal hematoma. No active contrast ex travasation appreciated. 2. Other incidental findings described above. [facility] SITE ID: [id number]
--- NOTE | 2017-07-03 13:32 | CT Report ---
EXAM: CT ABDOMEN AND PELVIS EXAM DATE: 07/03/2017 12:50 PM. CLINICAL HISTORY: Retroperitoneal hematoma. COMPARISONS: 06/22/2017. TECHNIQUE: Routine helical CT imaging was performed through the abdomen and pelvis. IV contrast: 100 mL Isovue-300. Enteric contrast: No. Reconstructions: Coronal and sagittal. In accordance with CT protocol optimization, one or more of the following dose reduction techniques w ere utilized for this exam: automated exposure control, adjustment of mA and/or KV based on patient s ize, or use of iterative reconstructive technique. FINDINGS: Lung Bases: Normal visualized lung bases. Coronary artery calcifications are present. Liver: Diffusely decreased attenuation of the liver consistent with steatosis. Gallbladder/Bile Ducts: Surgically absent. No abnormal bile duct dilation. Spleen: Normal. Pancreas: Normal. Adrenal Glands: Normal. Kidneys: Normal. No masses or hydronephrosis. Peritoneal Cavity/Bowel: There is descending and sigmoid colonic diverticulosis.. No free fluid, free air or adenopathy. No masses or acute inflammatory process. The appendix appears to be surgically ab sent. Pelvic Organs: Normal. The bladder and visualized pelvic organs are within normal limits. Vasculature: There is atherosclerotic calcification in the aorta and iliac arteries without aneurysm. Bones: Bilateral hip prostheses are present. Posterior and interbody fusion of L4-S1. Sternal wires a re present. Other: Retroperitoneal hematoma posterolateral to the right kidney series 3 image 47 measuring approx imately 7.7 x 14.7 x 10.5 cm. Previous measurement at a similar level approximately 7.2 x 13.8 x 10.9 cm. No active contrast extravasation appreciated. Some areas are liquefying. IMPRESSION: 1. Little if any interval change in size of the right retroperitoneal hematoma. No active contrast ex travasation appreciated. 2. Other incidental findings described above. [facility] Referring Provider Line: [phone] SITE ID: [id number]
--- NOTE | 2017-07-03 13:37 | ED Physician Documentation ---
PD HPI ABD PAIN - Stated complaint Stated Complaint: ABD REDNESS/PAIN - Chief complaint Chief Complaint: Abd Pain - History obtained from History obtained from: Patient, Family - History of Present Illness Timing - onset: How many weeks ago (2) Timing - duration: Weeks (2) Timing - details: Abrupt onset, Still present Quality: Sharp, Pain Location: RUQ Radiation: Right flank Improved by: Laying still Worsened by: Moving, Breathing, Position, Palpation Associated symptoms: Nausea Similar symptoms before: Diagnosis (abdominal wall hematoma and retroperitoneal hematoma) Recently seen: Emergency Dept, Surgery - Additional information Additional information: 72-year-old male with history of COPD has developed pneumonia and was placed on a course of antibiotic and had some coughing paroxysms that were bad enough that he hadFor serial hematocrits and his hematocrit is stabilized he did have a CT scan of the abdomen pelvis without evidence of extravasation of contrast and he has been back at home continuing to recover but has severe pain in the area of the hematoma and significant amount of swelling associated with a hematoma as well. He has been back to the emergency department for pain medication and he has been using some Tylenol No. 3 without relief. He did get some relief with Percocet. 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 Review of Systems Constitutional: denies: Fever Eyes: denies: Decreased vision Ears: denies: Ear pain Nose: denies: Congestion Throat: denies: Sore throat Cardiac: reports: Chest pain / pressure. denies: Palpitations Respiratory: reports: Dyspnea, Cough GI: reports: Abdominal Pain, Nausea. denies: Vomiting : denies: Dysuria, Frequency Skin: reports: Rash Musculoskeletal: reports: Back pain, Extremity pain. denies: Neck pain Neurologic: reports: Generalized weakness. denies: Focal weakness, Numbness PD PAST MEDICAL HISTORY - Past Medical History Past Medical History: Yes Cardiovascular: Hypertension, Coronary artery disease, [place], Atrial fibrillation Respiratory: Asthma, COPD Neuro: None Endocrine/Autoimmune: None GI: GERD, Hiatal hernia, Diverticulitis : Benign prostate hypertrophy, Nocturia HEENT: Chronic sinusitis Psych: Depression, Anxiety, Claustrophobia Musculoskeletal: Osteoarthritis, Chronic back pain, Other Derm: Herpes zoster, Other - Past Surgical History Past Surgical History: Yes General: Cholecystectomy, EGD Ortho: Hip replacement, Knee replacement, Other Cardiovascular: CABG, Other HEENT: Other - Present Medications Home Medications: Ambulatory Orders Medication Instructions Recorded Confirmed Lorazepam [Ativan] 1 mg PO TID 01/03/17 07/03/17 Acetaminophen/Cod 300/30 [Tylenol 1 each PO QID PRN #18 tablet 06/18/17 07/03/17 #3] Levalbuterol Tartrate [Xopenex Hfa] 2 puffs INH Q4H PRN 06/21/17 07/03/17 Loratadine [Claritin] 10 mg PO DAILY 06/21/17 07/03/17 Metoprolol Succinate [Toprol Xl] 100 mg PO BID 06/21/17 07/03/17 traZODone [Desyrel] 300 mg PO QPM 06/21/17 07/03/17 Arnicare Gel 07/03/17 Oxycodone HCl/Acetaminophen 1 - 2 each PO Q6HR PRN #20 tablet 07/03/17 [Percocet 5-325 mg Tablet] - Allergies Allergies/Adverse Reactions: Allergies Allergy/AdvReac Type Severity Reaction Status Date / Time albuterol Allergy Severe heart Verified 07/03/17 10:21 palpatation pantoprazole sodium * Allergy Intermediate Nausea Verified 07/03/17 10:21 [From Protonix] Uyhisyn-Txa-Ppo Reductase Allergy Intermediate Unknown Verified 07/03/17 10:21 Inhibitor Sulfa (Sulfonamide Allergy Intermediate Rash Verified 07/03/17 10:21 Antibiotics) latex Allergy Mild Itching Verified 07/03/17 10:21 - Social History Does the pt smoke?: No Smoking Status: Never smoker Does the pt drink ETOH?: Yes Does the pt have substance abuse?: No - Immunizations Immunizations are current?: Yes - POLST Patient has POLST: No POLST Status: Full Code PD ED PE NORMAL - Vitals Vital signs reviewed: Yes (hypedrtensive) - General General: No acute distress, Well developed/nourished - HEENT HEENT: Atraumatic, PERRL - Neck Neck: Supple, no meningeal sign, No bony TTP - Cardiac Cardiac: RRR, No murmur - Respiratory Respiratory: No respiratory distress, Other (diminished breath sounds bilaterally ) - Abdomen Abdomen: Soft, Other (Theres is extensive ecchymosis from the right flank to the right lower quadrant. The ecchymosis appears the correct age for coloring and is extensive starting in the lower rig area on the back and extending to the right lower quadrant. ) - Back Back: No spinal TTP - Derm Derm: Warm and dry - Extremities Extremities: No deformity, No edema - Neuro Neuro: No motor deficit, No sensory deficit Eye Opening: Spontaneous Motor: Obeys Commands Verbal: Oriented GCS Score: 15 - Psych Psych: Normal mood, Normal affect Results - Vitals Vitals: Vital Signs - 24 hr 07/03/17 10:17 Temperature 36.6 C Heart Rate 80 Respiratory 18 Rate Blood Pressure 152/85 H O2 Saturation 97 Oxygen O2 Source [With Activity] Room air O2 Source Room air - Labs Labs: Laboratory Tests 07/03/17 07/03/17 07/03/17 12:00 12:00 12:00 WBC 6.9 RBC 3.75 L Hgb 11.8 L Hct 35.1 L MCV 93.6 MCH 31.5 H MCHC 33.7 RDW 14.4 Plt Count 278 MPV 6.0 L Neut # 4.7 Lymph # 1.2 L Story # 0.7 Eos # 0.2 Baso # 0.1 Absolute Nucleated RBC 0.00 Nucleated RBC % 0.0 Sodium 139 Potassium 4.0 Chloride 101 Carbon Dioxide 28 Anion Gap 10.0 BUN 14 Creatinine 0.9 Estimated GFR (MDRD) 83 L Glucose 100 Calcium 9.0 Total Bilirubin 0.9 AST 21 ALT 19 Alkaline Phosphatase 58 Total Creatine Kinase 92 CK-MB (CK-2) 3.2 Total Protein 7.1 Albumin 3.8 Globulin 3.3 Albumin/Globulin Ratio 1.2 Lipase 31 - Rads (name of study) CT abdomen and pelvis with Radiology: Prelim report reviewed (Impression: 1. Little if any interval change in size of the right retroperitoneal hematoma. No active contrast extravasation appreciated. 2. Other incidental findings described above.), EMP read indepedently, See rad report PD MEDICAL DECISION MAKING - ED course Complexity details: reviewed old records, reviewed results, re-evaluated patient , considered differential, d/w patient, d/w family ED course: 72-year-old male with recent history of pneumonia and a coughing paroxysm related resulting in a retroperitoneal hematoma has continued pain and questions about whether this is actually resolving. Today's evaluation included a repeat CT scan which shows stabilized findings and improvement in the airspace disease. His blood counts are improved. His disease appears to be stabilized and he continues to have issues with pain control. He has prior history of narcotic prescription abuse and he is having trouble getting adequate amount of pain medication. I do believe his condition is painful and he would benefit from a short course of narcotic pain reliever. He will have an appointment to see his doctor this week. Here in the ED he is given PO percocet with improvement in his pain. Departure - Departure Disposition: 01 Home, Self Care Clinical Impression: Abdominal hematoma Condition: Stable Instructions: ED Hematoma Follow-Up: OLIVERIO BARTH [Primary Care Provider] - Prescriptions: Oxycodone HCl/Acetaminophen [Percocet 5-325 mg Tablet] 1 - 2 each PO Q6HR PRN # 20 tablet PRN Reason: Pain
[2017-07-03 13:57] VITALS: BP 148/66
== END 2017-07-03 14:12 | disposition home or self-care (01) ==
LOC: ED 10:11
DX: S30.1XXA Contusion of abdominal wall, initial encounter (principal); X58.XXXA Exposure to other specified factors, initial encounter; J44.9 Chronic obstructive pulmonary disease, unspecified; J45.909 Unspecified asthma, uncomplicated; I10 Essential (primary) hypertension; I25.10 Atherosclerotic heart disease of native coronary artery without angina pectoris; I25.2 Old myocardial infarction; I48.91 Unspecified atrial fibrillation; K21.9 Gastro-esophageal reflux disease without esophagitis; N40.0 Benign prostatic hyperplasia without lower urinary tract symptoms; M19.90 Unspecified osteoarthritis, unspecified site
CPT/HCPCS: 36415; 74177; 80053; 82550; 82553; 83690; 85025; 99283; 99284; A9270; Q9967

== ENCOUNTER 2017-07-22 11:30 | Emergency (ER) | payer MEDICARE ==
--- NOTE | 2017-07-22 13:29 | ED Physician Documentation ---
PD HPI LOWER EXT INJURY - Stated complaint Stated Complaint: L KNEE PX - Chief complaint Chief Complaint: Ext Problem - History obtained from History obtained from: Patient - History of Present Illness PD HPI LOW EXT INJURY LOCATION: Left, Knee Type of injury: Other (excessive walking on vacation) Where injury occurred: Other ([place]) Timing - onset: How many days ago (10) Timing - duration: Days (10) Timing - details: Gradual onset, Still present Improved by: Rest Worsened by: Moving, Palpating Associated symptoms: Swelling Contributing factors: No: Anticoagulated Similar symptoms before: Diagnosis (medial meniscus injury) Recently seen: Not recently seen - Additional information Additional information: 72-year-old male with multiple medical issues including coronary artery disease and COPD has developed some pain in his left knee following an injury this summer. He is planning on a surgery to fix the medial meniscus with Dr. Escobar in [place]. He does have a plan to see him in 3 days. He is requesting pain medication. He does not have a current primary. The patient indicates that he was having some problem with pain in this leg and then got on an airplane to go to [place] and that his knee swelled up while he was on the airplane and he had to be taken off the airplane in a wheelchair. He had pain bad enough that he was not able to get out of his hotel much in [place] and comes in now requesting some pain medication to get him by until he can get into see Dr. Escobar. He has issue with narcotic pain medication and prescription drug abuse. Review of Systems Constitutional: denies: Fever, Chills Eyes: denies: Decreased vision Ears: denies: Ear pain Nose: denies: Congestion Respiratory: denies: Dyspnea, Cough GI: denies: Vomiting Musculoskeletal: reports: Back pain, Extremity pain. denies: Neck pain Neurologic: denies: Generalized weakness, Focal weakness, Numbness PD PAST MEDICAL HISTORY - Past Medical History Past Medical History: Yes Cardiovascular: Hypertension, Coronary artery disease, [place], Atrial fibrillation Respiratory: Asthma, COPD Neuro: None Endocrine/Autoimmune: None GI: GERD, Hiatal hernia, Diverticulitis : Benign prostate hypertrophy, Nocturia HEENT: Chronic sinusitis Psych: Depression, Anxiety, Claustrophobia Musculoskeletal: Osteoarthritis, Chronic back pain, Other Derm: Herpes zoster, Other - Past Surgical History Past Surgical History: Yes General: Cholecystectomy, EGD Ortho: Hip replacement, Knee replacement, Other Cardiovascular: CABG, Other HEENT: Other - Present Medications Home Medications: Ambulatory Orders Medication Instructions Recorded Confirmed Lorazepam [Ativan] 1 mg PO TID 01/03/17 07/22/17 Levalbuterol Tartrate [Xopenex Hfa] 2 puffs INH Q4H PRN 06/21/17 07/22/17 Loratadine [Claritin] 10 mg PO DAILY 06/21/17 07/22/17 Metoprolol Succinate [Toprol Xl] 100 mg PO BID 06/21/17 07/22/17 traZODone [Desyrel] 300 mg PO QPM 06/21/17 07/22/17 Arnicare Gel 07/03/17 HYDROcod/ACETAM 5/325 [[place] 5/325] 1 - 2 ea PO Q6H PRN #12 tablet 07/22/17 - Allergies Allergies/Adverse Reactions: Allergies Allergy/AdvReac Type Severity Reaction Status Date / Time albuterol Allergy Severe heart Verified 07/03/17 10:21 palpatation pantoprazole sodium * Allergy Intermediate Nausea Verified 07/03/17 10:21 [From Protonix] Pmbjjbo-Rjd-Wvp Reductase Allergy Intermediate Unknown Verified 07/03/17 10:21 Inhibitor Sulfa (Sulfonamide Allergy Intermediate Rash Verified 07/03/17 10:21 Antibiotics) latex Allergy Mild Itching Verified 07/03/17 10:21 - Social History Does the pt smoke?: No Smoking Status: Never smoker Does the pt drink ETOH?: Yes Does the pt have substance abuse?: No - Immunizations Immunizations are current?: Yes - POLST Patient has POLST: No POLST Status: Full Code PD ED PE NORMAL - Vitals Vital signs reviewed: Yes (hypertensive) - General General: Alert and oriented X 3, No acute distress, Well developed/nourished - HEENT HEENT: Atraumatic, PERRL, EOMI - Respiratory Respiratory: No respiratory distress - Derm Derm: Normal color, Warm and dry, No rash - Extremities Extremities: No deformity, Other (There is palpable effusion to the left knee. The ligaments are stable and distal n/v is intact. ) - Neuro Neuro: No motor deficit, No sensory deficit Eye Opening: Spontaneous Motor: Obeys Commands Verbal: Oriented GCS Score: 15 - Psych Psych: Normal mood, Normal affect Results - Vitals Vitals: Vital Signs - 24 hr 07/22/17 11:34 Temperature 36.4 C L Heart Rate 82 Respiratory 16 Rate Blood Pressure 158/89 H O2 Saturation 98 Oxygen O2 Source [With Activity] Room air O2 Source Room air PD MEDICAL DECISION MAKING - ED course Complexity details: reviewed old records, considered differential, d/w patient ED course: 72-year-old male with left knee joint effusion has no access to pain medication and is come to the emergency department for pain medication. I have indicated to the patient we will no longer be able to fill scripts for this problem. Departure - Departure Disposition: 01 Home, Self Care Clinical Impression: Left knee sprain Qualifiers: Encounter type: subsequent encounter Involved ligament of knee: medial collateral ligament Qualified Code(s): S83.412D - Sprain of medial collateral ligament of left knee, subsequent encounter Condition: Stable Instructions: ED Sprain Knee Collateral Ligaments Follow-Up: Your, doctor [Other] Prescriptions: HYDROcod/ACETAM 5/325 [[place] 5/325] 1 - 2 ea PO Q6H PRN #12 tablet PRN Reason: Pain
[2017-07-22] MEDS ORDERED: DEXAMETHASONE 10 MG/ML VIAL PO STA (13:35)
[2017-07-22 14:00] VITALS: BP 142/70
== END 2017-07-22 13:56 | disposition home or self-care (01) ==
LOC: ED 11:30
DX: S83.412A Sprain of medial collateral ligament of left knee, initial encounter (principal); X50.3XXA Overexertion from repetitive movements, initial encounter; Y93.01 Activity, walking, marching and hiking; I25.10 Atherosclerotic heart disease of native coronary artery without angina pectoris; Z95.1 Presence of aortocoronary bypass graft; I10 Essential (primary) hypertension; J44.9 Chronic obstructive pulmonary disease, unspecified; I25.2 Old myocardial infarction; I48.91 Unspecified atrial fibrillation; K21.9 Gastro-esophageal reflux disease without esophagitis; N40.0 Benign prostatic hyperplasia without lower urinary tract symptoms; M19.90 Unspecified osteoarthritis, unspecified site
CPT/HCPCS: 99283

== ENCOUNTER 2017-07-31 20:13 | Outpatient (CLI) | payer MEDICARE | END 2017-07-31 20:14 | disposition critical access hospital (66) | LOC: EMS 20:13 | PROVIDERS: ATTEND Surgery | DX: R23.8 Other skin changes (principal) | CPT/HCPCS: A0425; A0429 ==

== ENCOUNTER 2017-07-31 20:35 | Inpatient (IN) | payer MEDICARE ==
[2017-07-31] MEDS ORDERED: PIPERACILLIN/TAZOBACTAM 3.375 GM in SODIUM CHLORIDE 0.9% MINIBAG 100 ML IV STA (21:05)
[2017-07-31] MEDS ORDERED: ONDANSETRON 4 MG/2 ML VIAL IVP STA (21:05)
[2017-07-31] MEDS ORDERED: HYDROmorphone 1 MG/ML SYRINGE IVP STA (21:05)
[2017-07-31] MEDS ORDERED: SODIUM CHLORIDE 0.9% 1,000 ML IV ONE ×3 (21:05→22:16)
[2017-07-31] MEDS ORDERED: VANCOMYCIN INJ 2 GM in SODIUM CHLORIDE 0.9% 500 ML IV STA (21:06)
[2017-07-31 21:39] LABS: BASOPHILS % (AUTO) 0.7 %; EOSINOPHILS % (AUTO) 0.1 %; HGB - HEMOGLOBIN 13.5 g/dL (14.0-18.0); MEAN CORPUSCULAR HEMOGLOBIN 30.5 pg (27.0-31.0); MEAN CORPUSCULAR HGB CONC 33.1 g/dL (32.0-36.0); MEAN CORPUSCULAR VOLUME 92.3 fL (80.0-94.0); MEAN PLATELET VOLUME 6.8 fL (7.4-11.4); MONOCYTES % (AUTO) 8.8 %; NEUTROPHILS % (AUTO) 81.4 %; PLT - PLATELET COUNT 219 10^3/uL (130-450); RED BLOOD COUNT 4.44 10^6/uL (4.70-6.10); RED CELL DISTRIBUTION WIDTH 13.9 % (12.0-15.0); WHITE BLOOD COUNT 19.7 x10^3/uL (4.8-10.8)
[2017-07-31 21:43] LABS: ABNORMAL LYMPHS % (MANUAL) 0 %
[2017-07-31 21:45] LABS: CALCIUM 8.7 mg/dL (8.5-10.3); CREATININE 0.9 mg/dL (0.6-1.2)
[2017-07-31] MEDS ORDERED: VANCOMYCIN 1 GM VIAL ONE (22:00)
[2017-07-31 22:04] LABS: BAND NEUTROPHILS % (MANUAL) 10 %; DIFFERENTIAL COMMENT MANUAL DIFFERENTIAL; LYMPHOCYTES # (MANUAL) 2.2 10^3/uL (1.5-3.5); LYMPHOCYTES % (MANUAL) 10 %; NEUTROPHILS # (MANUAL) 16.5 10^3/uL (1.5-6.6); NEUTROPHILS % (MANUAL) 74 %; PLATELET ESTIMATE, MANUAL NORMAL (130-450,000) (NORMAL); PLATELET MORPHOLOGY NORMAL APPEARANCE (NORMAL); RBC MORPHOLOGY (MULTIPLE) NORMAL APPEARANCE (NORMAL)
[2017-07-31] MEDS ORDERED: IOPAMIDOL-300 100 ML VIAL ONE (22:19)
[2017-07-31] MEDS ORDERED: IOPAMIDOL-300 100 ML VIAL IVP ONE (22:33)
--- NOTE | 2017-07-31 22:59 | CT Preliminary Report ---
Exam: CT ABDOMEN/PELVIS W/ IMPRESSION: 1. Findings consistent with left lower abdominal/pelvic wall cellulitis but without drainable abscess or soft tissue gas seen. 2. Improving subacute right retroperitoneal hematoma. No evidence of interval or active bleeding. 3. Fatty liver. 4. Colonic diverticulosis. 5. Previous cholecystectomy. 6. Moderate atherosclerotic disease of the aorta and branches. [facility] SITE ID: [id number]
--- NOTE | 2017-07-31 23:08 | CT Report ---
EXAM: CT ABDOMEN AND PELVIS EXAM DATE: 07/31/2017 10:45 PM. CLINICAL HISTORY: Left abdominal cellulitis worse today. COMPARISONS: 07/03/2017. TECHNIQUE: Routine helical CT imaging was performed through the abdomen and pelvis. IV contrast: 100 mL Isovue 300. Enteric contrast: No . Reconstructions: Coronal and sagittal. In accordance with CT protocol optimization, one or more of the following dose reduction techniques w ere utilized for this exam: automated exposure control, adjustment of mA and/or KV based on patient s ize, or use of iterative reconstructive technique. FINDINGS: Lung Bases: Unremarkable. Liver: Fatty. No suspicious masses. Gallbladder/Bile Ducts: Unremarkable post cholecystectomy. Spleen: Unremarkable. Pancreas: Unremarkable. Adrenal Glands: Unremarkable. Kidneys: Unremarkable. No suspicious masses or hydronephrosis. Peritoneal Cavity/Bowel: Colonic diverticulosis. No bowel obstruction or inflammatory process seen. N o free air or significant free fluid. No masses or adenopathy. The appendix is normal. No excessive s tool burden. Pelvic Organs: Mostly obscured by streak artifact. Grossly unremarkable where seen. Vasculature: Moderate atherosclerotic disease of the aorta and branches. No aneurysm seen. Bones: No significant abnormality with note of bilateral hip replacements and lower lumbar fusion. Other: Left lower abdomen/pelvic wall subcutaneous edema with skin thickening. No discrete abscess or tracking soft tissue gas seen. No definitive deep space involvement. Subacute right retroperitoneal hematoma has decreased in size from the prior study. No evidence of ac tive bleeding. Hematoma currently measures approximately 6 x 3 x 6 cm. IMPRESSION: 1. Findings consistent with left lower abdominal/pelvic wall cellulitis but without drainable abscess or soft tissue gas seen. 2. Improving subacute right retroperitoneal hematoma. No evidence of interval or active bleeding. 3. Fatty liver. 4. Colonic diverticulosis. 5. Previous cholecystectomy. 6. Moderate atherosclerotic disease of the aorta and branches. [facility] Referring Provider Line: [phone] SITE ID: [id number]
--- NOTE | 2017-07-31 23:20 | ED Physician Documentation ---
PD HPI SKIN - Stated complaint Stated Complaint: REDNESS TO ABD - Chief complaint Chief Complaint: Wound - History obtained from History obtained from: Patient (pt is here for evaluation of cellulitis to his left lower ABD. he states that he went to bed last night w/o any redenss but woke up this AM with some redness that progressed today. states that he feels ill, no trauma, + fevers and chills, no urinary sx.) Review of Systems Constitutional: reports: Fever, Chills Ears: denies: Loss of hearing, Ear pain, Tinnitus/ringing Throat: denies: Sore throat Cardiac: denies: Chest pain / pressure, Palpitations Respiratory: denies: Dyspnea, Cough GI: reports: Abdominal Pain (left lower ABD pain). denies: Nausea, Vomiting, Constipation, Diarrhea, Hematemesis : denies: Dysuria, Frequency, Testicular pain, Testicular mass Skin: reports: Rash (left lower abd). denies: Abrasion (s), Laceration (s), Bite / sting Musculoskeletal: denies: Neck pain, Back pain, Extremity pain, Joint pain, Extremity swelling Neurologic: reports: Generalized weakness. denies: Focal weakness, Numbness, Difficulty speaking, Altered mental status, Headache, LOC PD PAST MEDICAL HISTORY - Past Medical History Cardiovascular: Hypertension, Coronary artery disease, [place], Atrial fibrillation Respiratory: Asthma, COPD Neuro: None Endocrine/Autoimmune: None GI: GERD, Hiatal hernia, Diverticulitis : Benign prostate hypertrophy, Nocturia HEENT: Chronic sinusitis Psych: Depression, Anxiety, Claustrophobia Musculoskeletal: Osteoarthritis, Chronic back pain, Other Derm: Herpes zoster, Other - Past Surgical History Past Surgical History: Yes General: Cholecystectomy, EGD Ortho: Hip replacement, Knee replacement, Other Cardiovascular: CABG, Other HEENT: Other - Present Medications Home Medications: Ambulatory Orders Medication Instructions Recorded Confirmed Lorazepam [Ativan] 1 mg PO TID 01/03/17 07/22/17 Levalbuterol Tartrate [Xopenex Hfa] 2 puffs INH Q4H PRN 06/21/17 07/22/17 Loratadine [Claritin] 10 mg PO DAILY 06/21/17 07/22/17 Metoprolol Succinate [Toprol Xl] 100 mg PO BID 06/21/17 07/22/17 traZODone [Desyrel] 300 mg PO QPM 06/21/17 07/22/17 - Allergies Allergies/Adverse Reactions: Allergies Allergy/AdvReac Type Severity Reaction Status Date / Time albuterol Allergy Severe heart Verified 07/31/17 20:41 palpatation pantoprazole sodium * Allergy Intermediate Nausea Verified 07/31/17 20:41 [From Protonix] Jdtiqhp-Gtm-Ggm Reductase Allergy Intermediate Unknown Verified 07/31/17 20:41 Inhibitor Sulfa (Sulfonamide Allergy Intermediate Rash Verified 07/31/17 20:41 Antibiotics) latex Allergy Mild Itching Verified 07/31/17 20:41 - Social History Does the pt smoke?: No Smoking Status: Never smoker Does the pt drink ETOH?: Yes Does the pt have substance abuse?: No - Immunizations Immunizations are current?: Yes - POLST Patient has POLST: No POLST Status: Full Code PD ED PE NORMAL - Vitals Vital signs reviewed: Yes (tachycardic) - General General: Alert and oriented X 3, Well developed/nourished. No: No acute distress (mild distress) - HEENT HEENT: Atraumatic, PERRL, Moist mucous membranes - Cardiac Cardiac: No murmur. No: RRR (tachycardic but regular) - Respiratory Respiratory: No respiratory distress, Clear bilaterally - Abdomen Abdomen: Soft. No: Non tender (TTP left lower abdom. ) - Back Back: No CVA TTP - Derm Derm: Other (Pt with a 40 cm area of well defined redness that is warm to touch , tender to palpation, and blanchable. No pustules or vessicles, has a pinpoint area in the center that looks like the etiology of the cellulitis. ). No: Normal color, Warm and dry, No rash - Extremities Extremities: No deformity, No edema - Neuro Neuro: Alert and oriented X 3 Eye Opening: Spontaneous Motor: Obeys Commands Verbal: Oriented GCS Score: 15 - Psych Psych: Normal mood, Normal affect Results - Vitals Vitals: Vital Signs - 24 hr 07/31/17 07/31/17 20:38 22:15 Temperature 37.8 C H 37.5 C Heart Rate 123 H 111 H Respiratory 22 18 Rate Blood Pressure 142/72 H 110/67 O2 Saturation 94 93 Oxygen O2 Source [With Activity] Room air O2 Source Room air - Labs Labs: Laboratory Tests 07/31/17 07/31/17 07/31/17 21:29 21:29 21:29 WBC 19.7 H RBC 4.44 L Hgb 13.5 L Hct 40.9 L MCV 92.3 MCH 30.5 MCHC 33.1 RDW 13.9 Plt Count 219 MPV 6.8 L Neut # Not Reportable Lymph # Not Reportable Alcorn # Not Reportable Eos # Not Reportable Baso # Not Reportable Absolute Nucleated RBC Not Reportable Total Counted 100 Band Neuts % (Manual) 10 Reactive Lymphs % (Man) 1 Abnorm Lymph % (Manual) 0 Nucleated RBC % Not Reportable Neutrophils # (Manual) 16.5 H Lymphocytes # (Manual) 2.2 Monocytes # (Manual) 1.0 Eosinophils # (Manual) 0.0 Basophils # (Manual) 0.0 Differential Comment MANUAL DIFFERENTIAL Platelet Estimate NORMAL (130-450,000) Platelet Morphology NORMAL APPEARANCE RBC Morph Micro Appear NORMAL APPEARANCE Sodium 133 L Potassium 3.7 Chloride 101 Carbon Dioxide 24 Anion Gap 8.0 BUN 16 Creatinine 0.9 Estimated GFR (MDRD) 83 L Glucose 140 H Lactic Acid 1.5 Calcium 8.7 - Rads (name of study) CT ABD/Pelvis Radiology: Final report received PD MEDICAL DECISION MAKING - ED course Complexity details: reviewed results, re-evaluated patient, considered differential, d/w patient, d/w outside sales consultant ED course: pt with elevated WBC, normal lactate, not hypotensive, had a fever and tachycardic which improved with fluids. no defined abscess or gas on the CT scan. pt given vanc and zosyn in the ER. considered zoster because he staets that the area was burning and the fact that it stops at the umbilicus but I see no vessicles C/W this. Discussed this with the hospitalist and will admit for IV abx. Departure - Departure Disposition: ED Place in Observation Clinical Impression: Cellulitis Condition: Stable
--- NOTE | 2017-07-31 23:47 | HISTORY & PHYSICAL EXAMINATION ---
History of Present Illness - Admitted From Admitted From:: Home - History of Present Illness HPI Comment/Other: Mr. Dominic Viveros is a 72-year-old male with a history of abdominal pain. He says that he began to have trouble in the area following a hematoma which he says he sustained following aggressive coughing during a bout of bronchitis.This happened about a month ago and the patient was seen at the [facility] emergency department at that time. He says that over the last week or so the abdominal area has gotten more tender and that it has also become warm and hard.He does not believe he has been running any fevers. History - Past Medical History Cardiovascular: reports: Hypertension, Coronary artery disease, [place], Atrial fibrillation Respiratory: reports: Asthma, COPD Neuro: reports: None Endocrine/Autoimmune: reports: None GI: reports: GERD, Hiatal hernia, Diverticulitis : reports: Benign prostate hypertrophy, Nocturia HEENT: reports: Chronic sinusitis Psych: reports: Depression, Anxiety, Claustrophobia Musculoskeletal: reports: Osteoarthritis, Chronic back pain, Other Derm: reports: Herpes zoster, Other MRSA Hx?: No - Past Surgical History General: reports: Cholecystectomy, EGD Ortho: reports: Hip replacement, Knee replacement, Other Cardiovascular: reports: CABG, Other HEENT: reports: Other - Family & Social History Family History: Mother: , Cancer, Father: , Cancer, Brother: Alive and Well Living arrangement: At home Living Situation: With spouse/s.o. Social History Notes: Patient was born in [place] [facility] and moved would [facility] in [place]. The patient went to [employer] for his undergraduate degree and received his PhD in [employer]. 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 The patient also served in the [employer]. Patient lives in [place], [place] with his . The patient smoked about half a pack a day for 20 years. He drinks socially states he has a beer here and there but is not a heavy drinker. The patient denies any illicit drug use. - Substance History Use: Uses substance without health or social issues: NONE Abuse: Recurrent use of substance despite neg consequences: NONE Dependence: Experiences withdrawal or developed tolerances: NONE - POLST Patient has POLST: No POLST Status: Full Code Meds/Allgy - Home Medications Home Medications: Ambulatory Orders Medication Instructions Recorded Confirmed Lorazepam [Ativan] 1 mg PO TID 01/03/17 07/22/17 Levalbuterol Tartrate [Xopenex Hfa] 2 puffs INH Q4H PRN 06/21/17 07/22/17 Loratadine [Claritin] 10 mg PO DAILY 06/21/17 07/22/17 Metoprolol Succinate [Toprol Xl] 100 mg PO BID 06/21/17 07/22/17 traZODone [Desyrel] 300 mg PO QPM 06/21/17 07/22/17 - Allergies Allergies/Adverse Reactions: Allergies Allergy/AdvReac Type Severity Reaction Status Date / Time albuterol Allergy Severe heart Verified 07/31/17 20:41 palpatation pantoprazole sodium * Allergy Intermediate Nausea Verified 07/31/17 20:41 [From Protonix] Iqqefyu-Dad-Frq Reductase Allergy Intermediate Unknown Verified 07/31/17 20:41 Inhibitor Sulfa (Sulfonamide Allergy Intermediate Rash Verified 07/31/17 20:41 Antibiotics) latex Allergy Mild Itching Verified 07/31/17 20:41 Review of Systems - Constitutional Constitutional: reports: Fatigue, Weakness, Poor appetite - Eyes Eyes: denies: Pain, Irritation, Blurred vision - Ears, Nose & Throat Ears, Nose & Throat: denies: Ear pain, Hearing loss, Hearing aids, Tinnitus, Vertigo, Nasal pain - Cardiovascular Cariovascular: denies: Palpitations, Chest pain, Edema, Syncope - Respiratory Respiratory: denies: Cough, Sputum production, Wheezing, Hemoptysis - Gastrointestinal Gastrointestinal: reports: Abdominal pain. denies: Abdominal distention, Constipation, Diarrhea, Change in bowel habits, Rectal bleeding - Genitourinary Genitourinary: denies: Dysuria, Frequency, Urgency, Hematuria - Musculoskeletal Musculoskeletal: denies: Muscle pain, Back pain, Muscle aches, Stiffness, Gout - Integumentary Integumentary: reports: Rash. denies: Pruritis, Lesions, Nail changes, Hair changes - Neurological Neurological: denies: General weakness, Focal weakness, Headache, Dizziness - Psychiatric Psychiatric: reports: Depression, Anxiety. denies: Suicidal, Hallucinations - Endocrine Endocrine: denies: Polyuria, Polydypsia, Polyphagia - Hematologic/Lymphatic Hematologic/Lymphatic: denies: Anemia, Bruising, Lymphadenopathy - All Other Systems All Other Systems: reports: Reviewed and negative Exam - Vital Signs Reviewed Vital Signs: Yes Vital Signs: Vital Signs x48h Temp Pulse Resp BP Pulse Ox 07/31/17 22:15 37.5 C 111 H 18 110/67 93 07/31/17 20:38 37.8 C H 123 H 22 142/72 H 94 - Physical Exam General Appearance: positive: Alert, Mild distress, Anxious Eyes Bilateral: positive: Normal inspection, PERRL, EOMI, No lid inflammation ENT: positive: ENT inspection nml, Pharynx nml, No signs of dehydration. negative: Purulent nasal drainage Neck: positive: Nml inspection, Thyroid nml, No JVD, Trachea midline. negative : Thyromegaly Respiratory: positive: Chest non-tender, No respiratory distress, Breath sounds nml. negative: Wheezes, Rales, Rhonchi Cardiovascular: positive: No murmur, No gallop, Tachycardia. negative: JVD present, Systolic murmur, Diastolic murmur Peripheral Pulses: positive: 1+ Abdomen: positive: No organomegaly, No distention, Tenderness. negative: Guarding, Rebound Back: positive: Nml inspection. negative: CVA tenderness (R), CVA tenderness (L ) Skin: positive: Skin rash (well demarcated rash to LL Abdomen) Extremities: positive: Non-tender, Full ROM, Nml appearance, No pedal edema Neurologic/Psychiatric: positive: Oriented x3, CN's nml (2-12), Motor nml, Sensation nml, Other (Patient seems to have some general confusion) Conclusion/Plan - Problem List (1) Cellulitis Conclusion/Plan: We will start the patient on a third-generation cephalosporin every 8 hours [id number] along with IV fluids. We will monitor him closely over the next several days and address any other issues as they arise.We will order hydrocodone and acetaminophen for pain management. Qualifiers: Site of cellulitis: trunk Site of cellulitis of trunk: abdominal wall Qualified Code(s): L03.311 - Cellulitis of abdominal wall (2) Altered mental status Conclusion/Plan: Likely related to the patient's sepsis. His white blood cell count is 19,000 and he is showing some confusion. We will continue with the antibiotics and IV fluids and reexamine him in the morning. (3) Anxiety Conclusion/Plan: We will continue with the patient's [id number] Ativan and with trazodone at night - Lab Results Lab results reviewed: Yes Fish Bones: 07/31/17 21:29 07/31/17 21:29 - Diagnostic Imaging Results Diagnostic Imaging Results: positive: Final report reviewed Diagnostic Imaging Results Comments: EXAM: CT ABDOMEN AND PELVIS EXAM DATE: 07/31/2017 10:45 PM. CLINICAL HISTORY: Left abdominal cellulitis worse today. COMPARISONS: 07/03/2017. TECHNIQUE: Routine helical CT imaging was performed through the abdomen and pelvis. IV contrast: 100 mL Isovue 300. Enteric contrast: No . Reconstructions: Coronal and sagittal. In accordance with CT protocol optimization, one or more of the following dose reduction techniques were utilized for this exam: automated exposure control, adjustment of mA and/or KV based on patient size, or use of iterative reconstructive technique. FINDINGS: Lung Bases: Unremarkable. Liver: Fatty. No suspicious masses. Gallbladder/Bile Ducts: Unremarkable post cholecystectomy. Spleen: Unremarkable. Pancreas: Unremarkable. Adrenal Glands: Unremarkable. Kidneys: Unremarkable. No suspicious masses or hydronephrosis. Peritoneal Cavity/Bowel: Colonic diverticulosis. No bowel obstruction or inflammatory process seen. No free air or significant free fluid. No masses or adenopathy. The appendix is normal. No excessive stool burden. Pelvic Organs: Mostly obscured by streak artifact. Grossly unremarkable where seen. Vasculature: Moderate atherosclerotic disease of the aorta and branches. No aneurysm seen. Bones: No significant abnormality with note of bilateral hip replacements and lower lumbar fusion. Other: Left lower abdomen/pelvic wall subcutaneous edema with skin thickening. No discrete abscess or tracking soft tissue gas seen. No definitive deep space involvement. Subacute right retroperitoneal hematoma has decreased in size from the prior study. No evidence of active bleeding. Hematoma currently measures approximately 6 x 3 x 6 cm. IMPRESSION: 1. Findings consistent with left lower abdominal/pelvic wall cellulitis but without drainable abscess or soft tissue gas seen. 2. Improving subacute right retroperitoneal hematoma. No evidence of interval or active bleeding. 3. Fatty liver. 4. Colonic diverticulosis. 5. Previous cholecystectomy. 6. Moderate atherosclerotic disease of the aorta and branches. Issues/Core Measures - Anticipated LOS Anticipated Stay Length: 2 or more midnights - [facility] Requirement for [facility] I expect patient to be DC'd or transferred within 96 hours.: Yes - DVT/VTE - Prophylaxis VTE/DVT Device ordered at admit?: Yes
[2017-07-31] MEDS ORDERED: PROCHLORPERAZINE 10 MG/2 ML VIAL IVP PRN (23:57)
[2017-08-01] MEDS ORDERED: CEFOTAXIME 1 GM VIAL ONE (00:54)
[2017-08-01] MEDS ORDERED: SODIUM CHLORIDE 0.9% MINIBAG 100 ML IV ONE (00:55)
[2017-08-01] MEDS: HYDROcod/ACETAM 5/325 MG TABLET PO PRN ×4 (00:56→13:45)
[2017-08-01] MEDS ORDERED: CEFOTAXIME 2 GM in SODIUM CHLORIDE 0.9% MINIBAG 100 ML IV SCH (01:00)
[2017-08-01] MEDS: D5.45NS W/20 MEQ KCL 1,000 ML IV SCH ×2 (01:11→19:04)
[2017-08-01] MEDS: SODIUM CHLORIDE FLUSH 0.9% 10 ML SYRINGE IVP PRN (01:13)
[2017-08-01] MEDS ORDERED: LORazepam 0.5 MG TABLET ONE (01:20)
[2017-08-01] MEDS ORDERED: traZODone 50 MG TABLET PO ONE (01:21)
[2017-08-01] MEDS: ACETAMINOPHEN 325 MG TABLET PO PRN ×4 (03:55→18:04)
[2017-08-01 04:55] LABS: BILIRUBIN,URINE NEGATIVE (NEGATIVE); GLUCOSE, URINE (UA) NEGATIVE (NEGATIVE); KETONES,URINE (UA) NEGATIVE (NEGATIVE); LEUKOCYTE ESTERASE, URINE NEGATIVE (NEGATIVE); NITRITE,URINE NEGATIVE (NEGATIVE); OCCULT BLOOD,URINE NEGATIVE (NEGATIVE); PROTEIN,URINE NEGATIVE (NEGATIVE); UROBILINOGEN,URINE 0.2 (NORMAL) E.U./dL (NORMAL)
[2017-08-01 04:59] LABS: CLARITY,URINE CLEAR (CLEAR)
[2017-08-01 06:05] LABS: BASOPHILS % (AUTO) 0.1 %; HGB - HEMOGLOBIN 12.6 g/dL (14.0-18.0); LYMPHOCYTES # (AUTO) 0.9 10^3/uL (1.5-3.5); LYMPHOCYTES % (AUTO) 4.7 %; MEAN CORPUSCULAR HEMOGLOBIN 30.3 pg (27.0-31.0); MEAN CORPUSCULAR HGB CONC 32.5 g/dL (32.0-36.0); MEAN CORPUSCULAR VOLUME 93.3 fL (80.0-94.0); MONOCYTES # (AUTO) 1.9 10^3/uL (0.0-1.0); MONOCYTES % (AUTO) 9.7 %; NEUTROPHILS # (AUTO) 16.8 10^3/uL (1.5-6.6); NEUTROPHILS % (AUTO) 85.5 %; PLT - PLATELET COUNT 197 10^3/uL (130-450); RED BLOOD COUNT 4.16 10^6/uL (4.70-6.10); WHITE BLOOD COUNT 19.6 x10^3/uL (4.8-10.8)
[2017-08-01 06:12] LABS: CREATININE 0.9 mg/dL (0.6-1.2)
[2017-08-01] MEDS: SODIUM CHLORIDE FLUSH 0.9% 10 ML SYRINGE IVP SCH ×3 (06:28→21:47)
[2017-08-01] MEDS ORDERED: LEVALBUTEROL 1.25 MG/3 ML NEB INH PRN (07:06)
[2017-08-01] MEDS: SODIUM CHLORIDE 0.9% IV SCH ×4 (08:05→19:24)
[2017-08-01] MEDS: CEFOTAXIME IV SCH ×4 (08:05→19:24)
[2017-08-01] MEDS: LORazepam 0.5 MG TABLET PO SCH ×3 (08:06→21:36)
--- NOTE | 2017-08-01 08:16 | PROVIDER PROGRESS NOTE ---
Subjective - Prog Note Date Prog Note Date: 08/01/17 Prog Note Time: 08:15 - Subjective Pt reports feeling: No change Subjective: cannot remember what type of cardiac procedures he has had or what his daily routine consists of. He denies SOB, chest pain, N/V or a new cough. He admits to ongoing lower abdominal pain and requests more pain medication. Current Medications - Current Medications Current Medications: Active Medications Acetaminophen (Tylenol) 650 mg PO Q4HR PRN PRN Reason: Pain or Fever > 38C (100.4F) Last Admin: 08/01/17 08:06 Dose: 650 mg Acetaminophen/Hydrocodone Bitart ([place] 5/325) 1 tab PO Q4HR PRN PRN Reason: Pain 5 to 7 Last Admin: 08/01/17 05:13 Dose: 1 tab Potassium Chloride/Dextrose/Sod Cl (D5.45ns W/20 Meq Kcl) 1,000 mls @ 100 mls/ hr IV .Q10H [facility] Last Infusion: 08/01/17 06:38 Dose: 100 mls/hr Cefotaxime Sodium 1 gm/ Sodium (Chloride) 100 mls @ 200 mls/hr IV Q8H [facility] Last Admin: 08/01/17 08:05 Dose: 200 mls/hr Cefotaxime Sodium 1 gm/ Sodium (Chloride) 100 mls @ 200 mls/hr IV Q8H [facility] Levalbuterol HCl (Xopenex) 1.25 mg INH RTQ4H PRN PRN Reason: Wheezing Loratadine (Claritin) 10 mg PO DAILY [facility] Last Admin: 08/01/17 08:06 Dose: 10 mg Lorazepam (Ativan) 1 mg PO TID [facility] Last Admin: 08/01/17 08:06 Dose: 1 mg Metoprolol Succinate (Toprol Xl) 100 mg PO BID [facility] Last Admin: 08/01/17 08:06 Dose: 100 mg Polyethylene Glycol (Miralax) 17 gm PO DAILY [facility] Prochlorperazine Edisylate (Compazine Inj) 10 mg IVP Q6HR PRN PRN Reason: Nausea / Vomiting Sodium Chloride (Normal Saline Flush 0.9%) 10 ml IVP PRN PRN PRN Reason: NEEDED PER PROVIDER ORDERS Last Admin: 08/01/17 01:13 Dose: 10 ml Sodium Chloride (Normal Saline Flush 0.9%) 10 ml IVP Q8HR [facility] Last Admin: 08/01/17 06:28 Dose: Not Given Trazodone HCl (Desyrel) 300 mg PO QPM [facility] Lorazepam [Ativan] 1 mg PO TID 01/03/17 Levalbuterol Tartrate [Xopenex Hfa] 2 puffs INH Q4H PRN 06/21/17 Loratadine [Claritin] 10 mg PO DAILY 06/21/17 Metoprolol Succinate [Toprol Xl] 100 mg PO BID 06/21/17 traZODone [Desyrel] 300 mg PO QPM 06/21/17 Objective - Vital Signs/Intake & Output Reviewed Vital Signs: Yes Vital Signs: Vital Signs x48h Temp Pulse Resp BP Pulse Ox 08/01/17 07:56 37.3 C 112 H 20 145/81 H 93 08/01/17 03:32 38.2 C H 08/01/17 00:30 36.8 C 117 H 18 131/80 H 97 Intake & Output: Intake & Output 07/29/17 07/30/17 07/31/17 08/01/17 23:59 23:59 23:59 23:59 Intake Total 3073.333 Balance 3073.333 - Objective General Appearance: positive: Moderate distress, Anxious, Lethargic Eyes Bilateral: positive: Normal inspection ENT: positive: ENT inspection nml, Pharynx nml Neck: positive: Nml inspection, Thyroid nml, No JVD, Trachea midline Respiratory: positive: Chest non-tender, Rhonchi Cardiovascular: positive: Irregularly irregular, Systolic murmur, Decreased pulse(s) Skin: positive: Color nml, No rash, Warm, Diaphoresis, Pallor Extremities: positive: Pedal edema (mild), Joint swelling Neurologic/Psychiatric: positive: Disoriented to place, Disoriented to time, Weakness, Sensory loss, Depressed mood/affect Reflexes: Bicep (R): 2+, Bicep (L): 2+ - Lab Results Fish Bones: 08/02/17 05:08 08/02/17 06:01 Other Labs: Lab Results x24hrs 08/01/17 08/01/17 08/01/17 Range/Units 05:36 05:36 04:48 WBC 19.6 H (4.8-10.8) x10^3/uL RBC 4.16 L (4.70-6.10) 10^6/uL Hgb 12.6 L (14.0-18.0) g/dL Hct 38.8 L (42.0-52.0) % MCV 93.3 (80.0-94.0) fL MCH 30.3 (27.0-31.0) pg MCHC 32.5 (32.0-36.0) g/dL RDW 14.0 (12.0-15.0) % Plt Count 197 (130-450) 10^3/uL MPV 7.0 L (7.4-11.4) fL Neut # 16.8 H (1.5-6.6) 10^3/uL Lymph # 0.9 L (1.5-3.5) 10^3/uL [place] # 1.9 H (0.0-1.0) 10^3/uL Eos # 0.0 (0.0-0.7) 10^3/uL Baso # 0.0 (0.0-0.1) 10^3/uL Absolute Nucleated RBC 0.01 x10^3/uL Nucleated RBC % 0.0 /100WBC Sodium 132 L (135-145) mmol/L Potassium 4.1 (3.5-5.0) mmol/L Chloride 102 (101-111) mmol/L Carbon Dioxide 22 (21-32) mmol/L Anion Gap 8.0 (6-13) BUN 12 (6-20) mg/dL Creatinine 0.9 (0.6-1.2) mg/dL Estimated GFR (MDRD) 83 L (>89) Glucose 159 H (70-100) mg/dL Calcium 8.0 L (8.5-10.3) mg/dL Urine Color YELLOW Urine Clarity CLEAR (CLEAR) Urine pH 6.0 (5.0-7.5) PH Ur Specific [place] 1.025 (1.002-1.030) Urine Protein NEGATIVE (NEGATIVE) mg/dL Urine Glucose (UA) NEGATIVE (NEGATIVE) mg/dL Urine Ketones NEGATIVE (NEGATIVE) mg/dL Urine Occult Blood NEGATIVE (NEGATIVE) Urine Nitrite NEGATIVE (NEGATIVE) Urine Bilirubin NEGATIVE (NEGATIVE) Urine Urobilinogen 0.2 (NORMAL) (NORMAL) E.U./dL Ur Leukocyte Esterase NEGATIVE (NEGATIVE) Ur Microscopic Review NOT INDICATED Urine Culture Comments NOT INDICATED - Diagnostic Imaging Diagnostic Imaging Results: positive: Final report reviewed Diagnostic Imaging Comments: Abdominal/pelvis CT on admission: FINDINGS: Lung Bases: Unremarkable. Liver: Fatty. No suspicious masses. Gallbladder/Bile Ducts: Unremarkable post cholecystectomy. Spleen: Unremarkable. Pancreas: Unremarkable. Adrenal Glands: Unremarkable. Kidneys: Unremarkable. No suspicious masses or hydronephrosis. Peritoneal Cavity/Bowel: Colonic diverticulosis. No bowel obstruction or inflammatory process seen. No free air or significant free fluid. No masses or adenopathy. The appendix is normal. No excessive stool burden. Pelvic Organs: Mostly obscured by streak artifact. Grossly unremarkable where seen. Vasculature: Moderate atherosclerotic disease of the aorta and branches. No aneurysm seen. Bones: No significant abnormality with note of bilateral hip replacements and lower lumbar fusion. Other: Left lower abdomen/pelvic wall subcutaneous edema with skin thickening. No discrete abscess or tracking soft tissue gas seen. No definitive deep space involvement. Subacute right retroperitoneal hematoma has decreased in size from the prior study. No evidence of active bleeding. Hematoma currently measures approximately 6 x 3 x 6 cm. IMPRESSION: 1. Findings consistent with left lower abdominal/pelvic wall cellulitis but without drainable abscess or soft tissue gas seen. 2. Improving subacute right retroperitoneal hematoma. No evidence of interval or active bleeding. 3. Fatty liver. 4. Colonic diverticulosis. 5. Previous cholecystectomy. 6. Moderate atherosclerotic disease of the aorta and branches. Chest x-ray 2 view 08/01/17: FINDINGS: Lungs/Pleura: Lung volumes are mildly low, but unchanged. Increased left basilar retrocardiac consolidation compared to prior. No other focal consolidation. No evidence for pleural effusion or pneumothorax. Mediastinum: Stable heart size and mediastinum. Sternal wires appear intact. Other: None. IMPRESSION: 1. Accounting for stable mild levolumbar this, there is mild increase in left basilar consolidation which could represent atelectasis or possibly mild pneumonia. Abdominal/pelvic CT without contrast due to concerns of necrotizing fasciitis : FINDINGS: Lung Bases: Unremarkable. Liver: Diffuse moderate fatty liver, better observed on contrast enhanced study. Otherwise unremarkable. Gallbladder/Bile Ducts: Gallbladder surgically absent. No dilated bile ducts. Spleen: Normal. Pancreas: Normal. Adrenal Glands: Normal. Kidneys: Unremarkable on noncontrast imaging. No nephrolithiasis, hydronephrosis or hydroureter. Peritoneal Cavity/Bowel: Colonic diverticulosis, as noted previously without changes of diverticulitis. No obstruction or inflammatory bowel disease. No free fluid, free air or adenopathy. No masses or acute inflammatory process. The appendix and terminal ileum are well visualized and normal. Pelvic Organs: Largely obscured by streak artifact from bilateral hip replacements, as previously. No gross abnormality, free fluid or adenopathy. Vasculature: No aneurysms or other significant abnormality. Bones: Postoperative changes with interbody fusion and disk replacement L4-L5 and L5-S1, chronic and stable. Bilateral total hip replacements, grossly intact. No acute process or metastatic disease. Other: Generalized left mid to lower abdomen abdominal wall thickening/edema consistent with cellulitis, similar to prior exam. No abscess or drainable fluid collection. Stable right lower quadrant retroperitoneal hematoma 6.5 x 3.3 cm, unchanged. IMPRESSION: Stable abdomen and pelvic CT scan. No definite changes of necrotizing fasciitis. Left sided abdominal and upper pelvic wall edema and system with cellulitis, stable. No demonstrated abscess. Stable retroperitoneal hematoma on the right. 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 No free fluid, free air or abscess. Assessment/Plan - Problem List (1) Cellulitis Impression: Patient has had an extension of his cellulitis since the time of admission and a new boarderline was marked. It is located at LLQ abdomen and is quite painful on exam. Plan: Add vancomycin to IV antibiotic treatment and monitor infection. Qualifiers: Site of cellulitis: trunk Site of cellulitis of trunk: abdominal wall Qualified Code(s): L03.311 - Cellulitis of abdominal wall (2) Altered mental status Impression: Patient has times of unclear thinking that has to do with his pain levels. Plan: Fall precautions and continuity of care. (3) Anxiety Impression: displays this most of the time and contributes to his chronic diseases. He is treated with trazodone. Plan: Continue to monitor. (4) Opioid abuse Impression: Patient has a known history of opioid abuse, confirmed with . Plan: Use pain medications sparingly. [facility] 96 hour ATTESTATION: In good kejni I feel that the patient is reasonably expected to be discharged and/or transferred to another hospital within 96 hours.
[2017-08-01] MEDS: POLYETHYLENE GLYCOL 3350 17 GM PACKET PO SCH (08:19)
[2017-08-01] MEDS ORDERED: METOPROLOL SUCCINATE 50 MG TABLET PO SCH (09:00)
[2017-08-01] MEDS ORDERED: LORATADINE 10 MG TABLET PO SCH (09:00)
--- NOTE | 2017-08-01 09:22 | XRAY Preliminary Report ---
Exam: XR CHEST 2 VIEW PA/LAT IMPRESSION: 1. Accounting for stable mild levolumbar this, there is mild increase in left basilar consolidation w hich could represent atelectasis or possibly mild pneumonia. [facility] SITE ID: [id number]
--- NOTE | 2017-08-01 09:25 | XRAY Report ---
EXAM: CHEST RADIOGRAPHY EXAM DATE: 08/01/2017 08:59 AM. CLINICAL HISTORY: Sepsis, history of cough. COMPARISON: 06/21/2017. TECHNIQUE: 2 views. FINDINGS: Lungs/Pleura: Lung volumes are mildly low, but unchanged. Increased left basilar retrocardiac consoli dation compared to prior. No other focal consolidation. No evidence for pleural effusion or pneumotho rax. Mediastinum: Stable heart size and mediastinum. Sternal wires appear intact. Other: None. IMPRESSION: 1. Accounting for stable mild levolumbar this, there is mild increase in left basilar consolidation w hich could represent atelectasis or possibly mild pneumonia. [facility] Referring Provider Line: [phone] SITE ID: [id number]
[2017-08-01 10:31] LABS: HB2 TOTAL 13.2 g/dL; HEMOGLOBIN A1C 0.44 g/dL; HEMOGLOBIN A1C % 5.2 % (4.6-6.2)
--- NOTE | 2017-08-01 10:41 | CT Report ---
EXAM: CT ABDOMEN AND PELVIS WITHOUT CONTRAST EXAM DATE: 08/01/2017 09:53 AM. CLINICAL HISTORY: 72-year-old male with left-sided abdominal cellulitis with clinical concern for nec rotizing fasciitis. COMPARISONS: Contrast-enhanced abdomen and pelvic CT yesterday. TECHNIQUE: Routine helical CT imaging was performed through the abdomen and pelvis. IV contrast: None . Enteric contrast: None. Reconstructions: Coronal and sagittal. In accordance with CT protocol optimization, one or more of the following dose reduction techniques w ere utilized for this exam: automated exposure control, adjustment of mA and/or KV based on patient s ize, or use of iterative reconstructive technique. FINDINGS: Lung Bases: Unremarkable. Liver: Diffuse moderate fatty liver, better observed on contrast enhanced study. Otherwise unremarkab le. Gallbladder/Bile Ducts: Gallbladder surgically absent. No dilated bile ducts. Spleen: Normal. Pancreas: Normal. Adrenal Glands: Normal. Kidneys: Unremarkable on noncontrast imaging. No nephrolithiasis, hydronephrosis or hydroureter. Peritoneal Cavity/Bowel: Colonic diverticulosis, as noted previously without changes of diverticuliti s. No obstruction or inflammatory bowel disease. No free fluid, free air or adenopathy. No masses or acute inflammatory process. The appendix and terminal ileum are well visualized and normal. Pelvic Organs: Largely obscured by streak artifact from bilateral hip replacements, as previously. No gross abnormality, free fluid or adenopathy. Vasculature: No aneurysms or other significant abnormality. Bones: Postoperative changes with interbody fusion and disk replacement L4-L5 and L5-S1, chronic and stable. Bilateral total hip replacements, grossly intact. No acute process or metastatic disease. Other: Generalized left mid to lower abdomen abdominal wall thickening/edema consistent with cellulit is, similar to prior exam. No abscess or drainable fluid collection. Stable right lower quadrant retroperitoneal hematoma 6.5 x 3.3 cm, unchanged. IMPRESSION: Stable abdomen and pelvic CT scan. No definite changes of necrotizing fasciitis. Left sided abdominal and upper pelvic wall edema and system with cellulitis, stable. No demonstrated abscess. Stable retroperitoneal hematoma on the right. 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 No free fluid, free air or abscess. [facility] Referring Provider Line: [phone] SITE ID: [id number]
[2017-08-01] MEDS: VANCOMYCIN 1.5 GM/NS 500 ML 1.5 GM/500 ML BAG IV SCH (14:31)
[2017-08-01] MEDS ORDERED: VANCOMYCIN PER PHARMACY 1 GM in SODIUM CHLORIDE 0.9% 250 ML IV SCH (15:00)
[2017-08-01] MEDS: oxyCOD/ACETAMIN 5 MG/325 MG TABLET PO PRN ×2 (17:16→21:38)
[2017-08-01] MEDS: MORPHINE 2 MG/ML SYRINGE IVP PRN ×2 (20:04→23:10)
[2017-08-01] MEDS: traZODone 50 MG TABLET PO SCH (21:37)
[2017-08-01] MEDS: METOPROLOL TARTRATE 50 MG TABLET PO SCH (21:42)
[2017-08-02] MEDS: CEFOTAXIME IV SCH ×6 (00:08→19:14)
[2017-08-02] MEDS: SODIUM CHLORIDE 0.9% IV SCH ×6 (00:08→19:14)
[2017-08-02] MEDS: oxyCOD/ACETAMIN 5 MG/325 MG TABLET PO PRN ×5 (01:40→20:02)
[2017-08-02] MEDS: VANCOMYCIN 1.5 GM/NS 500 ML 1.5 GM/500 ML BAG IV SCH ×2 (01:40→14:29)
[2017-08-02] MEDS: SODIUM CHLORIDE FLUSH 0.9% 10 ML SYRINGE IVP PRN ×2 (03:15→14:30)
[2017-08-02] MEDS: MORPHINE 2 MG/ML SYRINGE IVP PRN ×4 (03:15→18:41)
[2017-08-02] MEDS: LORazepam 0.5 MG TABLET PO SCH ×3 (05:34→21:24)
[2017-08-02] MEDS: SODIUM CHLORIDE FLUSH 0.9% 10 ML SYRINGE IVP SCH ×3 (05:36→21:07)
[2017-08-02 05:37] LABS: BASOPHILS # (AUTO) 0.1 10^3/uL (0.0-0.1); BASOPHILS % (AUTO) 0.3 %; EOSINOPHILS # (AUTO) 0.2 10^3/uL (0.0-0.7); EOSINOPHILS % (AUTO) 1.3 %; HGB - HEMOGLOBIN 11.8 g/dL (14.0-18.0); LYMPHOCYTES # (AUTO) 1.1 10^3/uL (1.5-3.5); LYMPHOCYTES % (AUTO) 5.9 %; MEAN CORPUSCULAR HEMOGLOBIN 30.3 pg (27.0-31.0); MEAN CORPUSCULAR HGB CONC 31.9 g/dL (32.0-36.0); MEAN PLATELET VOLUME 7.1 fL (7.4-11.4); MONOCYTES # (AUTO) 1.4 10^3/uL (0.0-1.0); MONOCYTES % (AUTO) 7.2 %; NEUTROPHILS # (AUTO) 15.9 10^3/uL (1.5-6.6); NEUTROPHILS % (AUTO) 85.3 %; PLT - PLATELET COUNT 185 10^3/uL (130-450); RED CELL DISTRIBUTION WIDTH 14.2 % (12.0-15.0); WHITE BLOOD COUNT 18.7 x10^3/uL (4.8-10.8)
[2017-08-02 06:18] LABS: CALCIUM 7.9 mg/dL (8.5-10.3); CREATININE 0.8 mg/dL (0.6-1.2)
[2017-08-02] MEDS: POLYETHYLENE GLYCOL 3350 17 GM PACKET PO SCH (08:35)
[2017-08-02] MEDS: METOPROLOL TARTRATE 50 MG TABLET PO SCH ×2 (08:36→21:24)
--- NOTE | 2017-08-02 09:05 | PROVIDER PROGRESS NOTE ---
Subjective - Prog Note Date Prog Note Date: 08/02/17 Prog Note Time: 09:05 - Subjective Pt reports feeling: Improved Subjective: admits to continued discomfort in LLQ related to improved cellulitis. He denies chest pain, SOB, N/V, or a new cough. Exam questions were very difficult to complete and Milana interjected her own comments or opinions regarding her 's health. Current Medications - Current Medications Current Medications: Active Medications Acetaminophen (Tylenol) 650 mg PO Q4HR PRN PRN Reason: Pain or Fever > 38C (100.4F) Last Admin: 08/01/17 18:04 Dose: 650 mg Potassium Chloride/Dextrose/Sod Cl (D5.45ns W/20 Meq Kcl) 1,000 mls @ 100 mls/ hr IV .Q10H [facility] Last Infusion: 08/02/17 13:50 Dose: 0 mls/hr Cefotaxime Sodium 1 gm/ Sodium (Chloride) 100 mls @ 200 mls/hr IV Q8H [facility] Last Infusion: 08/02/17 08:47 Dose: Infused Cefotaxime Sodium 1 gm/ Sodium (Chloride) 100 mls @ 200 mls/hr IV Q8H [facility] Last Infusion: 08/02/17 09:17 Dose: Infused Vancomycin/Sodium Chloride (Vanco/Sod Chloride 0.9%) 1.5 gm in 500 mls @ 325 mls/hr IV Q12H [facility] Last Admin: 08/02/17 14:29 Dose: 325 mls/hr Levalbuterol HCl (Xopenex) 1.25 mg INH RTQ4H PRN PRN Reason: Wheezing Lorazepam (Ativan) 1 mg PO TID [facility] Last Admin: 08/02/17 14:30 Dose: 1 mg Metoprolol Tartrate (Lopressor) 100 mg PO BID [facility] Last Admin: 08/02/17 08:36 Dose: 100 mg Morphine Sulfate (Morphine) 2 mg IVP Q5H PRN PRN Reason: PAIN Oxycodone/Acetaminophen (Percocet 5 Mg/325 Mg) 1 tab PO Q4HR PRN PRN Reason: PAIN Last Admin: 08/02/17 15:56 Dose: 1 tab Polyethylene Glycol (Miralax) 17 gm PO DAILY [facility] Last Admin: 08/02/17 08:35 Dose: 17 gm Prochlorperazine Edisylate (Compazine Inj) 10 mg IVP Q6HR PRN PRN Reason: Nausea / Vomiting Sodium Chloride (Normal Saline Flush 0.9%) 10 ml IVP PRN PRN PRN Reason: NEEDED PER PROVIDER ORDERS Last Admin: 08/02/17 14:30 Dose: 10 ml Sodium Chloride (Normal Saline Flush 0.9%) 10 ml IVP Q8HR [facility] Last Admin: 08/02/17 08:35 Dose: 10 ml Trazodone HCl (Desyrel) 300 mg PO QPM [facility] Last Admin: 08/01/17 21:37 Dose: 300 mg Lorazepam [Ativan] 1 mg PO TID 01/03/17 Levalbuterol Tartrate [Xopenex Hfa] 2 puffs INH Q4H PRN 06/21/17 traZODone [Desyrel] 300 mg PO QPM 06/21/17 Acetaminophen with Codeine [Acetaminophen-Cod #3 Tablet] 1 tab PO Q6HR PRN 08/01 Metoprolol Tartrate 100 mg PO BID 08/01/17 Objective - Vital Signs/Intake & Output Reviewed Vital Signs: Yes Vital Signs: Vital Signs x48h Temp Pulse Resp BP BP Pulse Ox 08/02/17 08:36 121/66 08/02/17 08:11 36.5 C 84 18 121/66 95 08/02/17 05:36 37.2 C 82 17 121/58 L 99 Intake & Output: Intake & Output 07/30/17 07/31/17 08/01/17 08/02/17 23:59 23:59 23:59 23:59 Intake Total 5440.000 Balance 5440.000 - Objective General Appearance: positive: No acute distress, Alert Eyes Bilateral: positive: Normal inspection, PERRL Eyes: OU Scleral icterus ENT: positive: ENT inspection nml, Pharynx nml, Dry mucous membranes Neck: positive: Nml inspection, Thyroid nml, No JVD, Trachea midline Respiratory: positive: Chest non-tender, No respiratory distress, Breath sounds nml Cardiovascular: positive: Regular rate & rhythm, No gallop, Systolic murmur Peripheral Pulses: 2+ Radial (R), 2+ Radial (L), 2+ Dorsalis pedis (R), 2+ Dorsalis pedis (L) Abdomen: positive: Tenderness, Guarding, Hepatomegaly, Splenomegaly, Abnml bowel sounds Back: positive: Nml inspection Skin: positive: Color nml, No rash, Warm, Dry Extremities: positive: Non-tender, Full ROM, Pedal edema, Calf tenderness Neurologic/Psychiatric: positive: Weakness, Sensory loss, Depressed mood/affect Reflexes: Bicep (R): 2+, Bicep (L): 2+ - Lab Results Fish Bones: 08/02/17 05:08 08/02/17 06:01 Other Labs: Lab Results x24hrs 08/02/17 08/02/17 08/01/17 Range/Units 06:01 05:08 10:49 WBC 18.7 H (4.8-10.8) x10^3/uL RBC 3.90 L (4.70-6.10) 10^6/uL Hgb 11.8 L (14.0-18.0) g/dL Hct 37.1 L (42.0-52.0) % MCV 95.0 H (80.0-94.0) fL MCH 30.3 (27.0-31.0) pg MCHC 31.9 L (32.0-36.0) g/dL RDW 14.2 (12.0-15.0) % Plt Count 185 (130-450) 10^3/uL MPV 7.1 L (7.4-11.4) fL Neut # 15.9 H (1.5-6.6) 10^3/uL Lymph # 1.1 L (1.5-3.5) 10^3/uL [place] # 1.4 H (0.0-1.0) 10^3/uL Eos # 0.2 (0.0-0.7) 10^3/uL Baso # 0.1 (0.0-0.1) 10^3/uL Absolute Nucleated RBC 0.00 x10^3/uL Nucleated RBC % 0.0 /100WBC Sodium 133 L (135-145) mmol/L Potassium 4.2 (3.5-5.0) mmol/L Chloride 104 (101-111) mmol/L Carbon Dioxide 25 (21-32) mmol/L Anion Gap 4.0 L (6-13) BUN 11 (6-20) mg/dL Creatinine 0.8 (0.6-1.2) mg/dL Estimated GFR (MDRD) 95 (>89) Glucose 130 H (70-100) mg/dL Glycated Hemoglobin (4.6-6.2) % Estim Average Glucose (70-100) Calcium 7.9 L (8.5-10.3) mg/dL Ammonia 20.9 (7-35) umol/L TSH (0.34-5.60) uIU/mL 08/01/17 08/01/17 Range/Units 05:36 05:36 WBC (4.8-10.8) x10^3/uL RBC (4.70-6.10) 10^6/uL Hgb (14.0-18.0) g/dL Hct (42.0-52.0) % MCV (80.0-94.0) fL MCH (27.0-31.0) pg MCHC (32.0-36.0) g/dL RDW (12.0-15.0) % Plt Count (130-450) 10^3/uL MPV (7.4-11.4) fL Neut # (1.5-6.6) 10^3/uL Lymph # (1.5-3.5) 10^3/uL [place] # (0.0-1.0) 10^3/uL Eos # (0.0-0.7) 10^3/uL Baso # (0.0-0.1) 10^3/uL Absolute Nucleated RBC x10^3/uL Nucleated RBC % /100WBC Sodium (135-145) mmol/L Potassium (3.5-5.0) mmol/L Chloride (101-111) mmol/L Carbon Dioxide (21-32) mmol/L Anion Gap (6-13) BUN (6-20) mg/dL Creatinine (0.6-1.2) mg/dL Estimated GFR (MDRD) (>89) Glucose (70-100) mg/dL Glycated Hemoglobin 5.2 (4.6-6.2) % Estim Average Glucose 103 H (70-100) Calcium (8.5-10.3) mg/dL Ammonia (7-35) umol/L TSH 1.05 (0.34-5.60) uIU/mL - Diagnostic Imaging Diagnostic Imaging Results: positive: Final report reviewed Assessment/Plan - Problem List (1) Cellulitis Impression: Patient has had an extension of his cellulitis since the time of admission and a new borderline was marked. This has not exceeded the boarders. The redness is now more localized toward the lower abdominal aspect with the same amount of redness as before in that area. It is located at LLQ abdomen and is quite painful on exam. Patient's abdomen appears non-symmetrical in appearance. Patient has been afebrile once arriving on the nursing floor. We are awaiting blood culture results. Plan: Add vancomycin to IV antibiotic treatment and monitor infection. Qualifiers: Site of cellulitis: trunk Site of cellulitis of trunk: abdominal wall Qualified Code(s): L03.311 - Cellulitis of abdominal wall (2) Altered mental status Impression: Patient has times of unclear thinking that has to do with baseline chronic deficit. 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 Plan: Fall precautions and continuity of care. We will avoid additional hypnotics or sedatives. We will continue with trazodone for sleep. (3) Anxiety Impression: displays this most of the time and contributes to his chronic diseases. He is treated with trazodone. Anxiety is escalated at times when his is present as she tends to consume conversations and/or supersede her opinions on questions asked of patient by medical team. Plan: Continue to monitor and avoid exams while , Milana is present to allow for the most accurate exam findings. (4) Opioid abuse Impression: Patient has a known history of opioid abuse, suspect oral only and this was confirmed with . Patient is prescribed narcotics as outpatient. Plan: Use pain medications sparingly. Morphine IV was changed in frequency today from every 3 hours to every 5 hours due to patient improvement.
[2017-08-02] MEDS: D5.45NS W/20 MEQ KCL 1,000 ML IV SCH ×2 (09:56→09:57)
[2017-08-02] MEDS: traZODone 50 MG TABLET PO SCH (21:24)
[2017-08-03] MEDS: D5.45NS W/20 MEQ KCL 1,000 ML IV SCH ×2 (00:28→08:45)
[2017-08-03] MEDS: oxyCOD/ACETAMIN 5 MG/325 MG TABLET PO PRN ×4 (00:30→21:15)
[2017-08-03] MEDS: SODIUM CHLORIDE FLUSH 0.9% 10 ML SYRINGE IVP PRN (00:32)
[2017-08-03] MEDS: CEFOTAXIME IV SCH ×4 (00:33→09:16)
[2017-08-03] MEDS: SODIUM CHLORIDE 0.9% IV SCH ×4 (00:33→09:16)
[2017-08-03 01:45] LABS: VANCOMYCIN,TROUGH 10.6 ug/mL (5.0-15.0)
[2017-08-03] MEDS: MORPHINE 2 MG/ML SYRINGE IVP PRN ×4 (01:59→18:49)
[2017-08-03] MEDS: VANCOMYCIN 1.5 GM/NS 500 ML 1.5 GM/500 ML BAG IV SCH ×2 (02:00→14:35)
[2017-08-03] MEDS: SODIUM CHLORIDE FLUSH 0.9% 10 ML SYRINGE IVP SCH ×3 (04:48→21:15)
[2017-08-03 05:19] LABS: BASOPHILS # (AUTO) 0.1 10^3/uL (0.0-0.1); BASOPHILS % (AUTO) 0.4 %; EOSINOPHILS # (AUTO) 0.3 10^3/uL (0.0-0.7); EOSINOPHILS % (AUTO) 2.2 %; HGB - HEMOGLOBIN 12.1 g/dL (14.0-18.0); LYMPHOCYTES # (AUTO) 0.9 10^3/uL (1.5-3.5); MEAN CORPUSCULAR HEMOGLOBIN 31.2 pg (27.0-31.0); MEAN CORPUSCULAR HGB CONC 32.1 g/dL (32.0-36.0); MEAN CORPUSCULAR VOLUME 97.3 fL (80.0-94.0); MEAN PLATELET VOLUME 7.5 fL (7.4-11.4); MONOCYTES # (AUTO) 0.7 10^3/uL (0.0-1.0); MONOCYTES % (AUTO) 4.9 %; NEUTROPHILS # (AUTO) 12.8 10^3/uL (1.5-6.6); NEUTROPHILS % (AUTO) 86.5 %; PLT - PLATELET COUNT 193 10^3/uL (130-450); RED BLOOD COUNT 3.89 10^6/uL (4.70-6.10); RED CELL DISTRIBUTION WIDTH 14.1 % (12.0-15.0); WHITE BLOOD COUNT 14.8 x10^3/uL (4.8-10.8)
[2017-08-03 05:25] LABS: CALCIUM 8.2 mg/dL (8.5-10.3); CREATININE 0.8 mg/dL (0.6-1.2)
[2017-08-03] MEDS: LORazepam 0.5 MG TABLET PO SCH (06:06)
[2017-08-03 06:29] LABS: DIFFERENTIAL COMMENT MANUAL=AUTO DIFF; PLATELET ESTIMATE, MANUAL NORMAL (130-450,000) (NORMAL); PLATELET MORPHOLOGY NORMAL APPEARANCE (NORMAL); RBC MORPHOLOGY (MULTIPLE) NORMAL APPEARANCE (NORMAL)
[2017-08-03] MEDS: METOPROLOL TARTRATE 50 MG TABLET PO SCH ×2 (08:48→21:17)
[2017-08-03] MEDS: POLYETHYLENE GLYCOL 3350 17 GM PACKET PO SCH (08:48)
[2017-08-03] MEDS ORDERED: SPIRONOLACTONE 25 MG TABLET PO SCH (10:00)
[2017-08-03] MEDS ORDERED: FUROSEMIDE 40 MG/4 ML VIAL IVP ONE (11:16)
[2017-08-03 11:31] LABS: MUDS CUTOFF CONCENTRATIONS CUTOFF CONC BELOW:
[2017-08-03 11:46] LABS: BILIRUBIN,URINE NEGATIVE (NEGATIVE); GLUCOSE, URINE (UA) NEGATIVE (NEGATIVE); KETONES,URINE (UA) NEGATIVE (NEGATIVE); LEUKOCYTE ESTERASE, URINE NEGATIVE (NEGATIVE); NITRITE,URINE NEGATIVE (NEGATIVE); OCCULT BLOOD,URINE NEGATIVE (NEGATIVE); PROTEIN,URINE NEGATIVE (NEGATIVE); UROBILINOGEN,URINE 0.2 (NORMAL) E.U./dL (NORMAL)
[2017-08-03 11:47] LABS: CLARITY,URINE CLEAR (CLEAR)
[2017-08-03 11:58] LABS: BACTERIA,URINE None Seen /HPF (None Seen); MUCUS,URINE Few Strands; RBC,URINE 0-5 /HPF (0-5); SQUAMOUS EPITHELIAL CELL,UR FEW Squamous (<= Few)
[2017-08-03 11:59] LABS: AMPHETAMINE SCREEN,URINE NEGATIVE (NEGATIVE); BENZODIAZEPINES SCREEN, URINE POSITIVE (NEGATIVE); COCAINE SCREEN URINE NEGATIVE (NEGATIVE); METHADONE SCREEN, URINE NEGATIVE (NEGATIVE); METHAMPHETAMINES SCREEN, URINE NEGATIVE (NEGATIVE); OPIATE SCREEN, URINE POSITIVE (NEGATIVE); OXYCODONE SCREEN, URINE POSITIVE (NEGATIVE); PROPOXYPHENE SCREEN, URINE NEGATIVE (NEGATIVE); TRICYCLIC ANTIDEPRESSANT,URINE NEGATIVE (NEGATIVE)
[2017-08-03] MEDS ORDERED: oxyCOD/ACETAMIN 5 MG/325 MG TABLET PO PRN (12:46)
[2017-08-03] MEDS ORDERED: traZODone 50 MG TABLET PO SCH (12:46)
[2017-08-03] MEDS ORDERED: MORPHINE 2 MG/ML SYRINGE IVP PRN (12:52)
[2017-08-03] MEDS: CEFEPIME 2 GM in SODIUM CHLORIDE 0.9% MINIBAG 100 ML IV SCH ×2 (12:59→21:13)
--- NOTE | 2017-08-03 13:07 | PROVIDER PROGRESS NOTE ---
Subjective - Prog Note Date Prog Note Date: 08/03/17 Prog Note Time: 13:04 - Subjective Pt reports feeling: No change Subjective: complains of ongoing, "uncontrolled pain". He denies SOB, chest pain, N/V or a new cough. Current Medications - Current Medications Current Medications: Active Medications Furosemide (Lasix Inj 40 Mg Vial) 40 mg IVP DAILY [facility] Vancomycin/Sodium Chloride (Vanco/Sod Chloride 0.9%) 1.5 gm in 500 mls @ 325 mls/hr IV Q12H [facility] Last Admin: 08/03/17 14:35 Dose: 325 mls/hr Cefepime HCl 2 gm/ Sodium (Chloride) 100 mls @ 200 mls/hr IV Q8H [facility] Last Infusion: 08/03/17 13:59 Dose: Infused Ibuprofen (Motrin) 600 mg PO Q6HR [facility] Last Admin: 08/03/17 16:18 Dose: 600 mg Levalbuterol HCl (Xopenex) 1.25 mg INH RTQ4H PRN PRN Reason: Wheezing Metoprolol Tartrate (Lopressor) 100 mg PO BID [facility] Last Admin: 08/03/17 08:48 Dose: 100 mg Mineral Oil (Cavilon) 1 applic TOP PRN PRN PRN Reason: Skin Care Morphine Sulfate (Morphine) 2 mg IVP Q2H PRN PRN Reason: PAIN Last Admin: 08/03/17 16:33 Dose: 2 mg Polyethylene Glycol (Miralax) 17 gm PO DAILY [facility] Last Admin: 08/03/17 08:48 Dose: Not Given Prochlorperazine Edisylate (Compazine Inj) 10 mg IVP Q6HR PRN PRN Reason: Nausea / Vomiting Sodium Chloride (Normal Saline Flush 0.9%) 10 ml IVP PRN PRN PRN Reason: NEEDED PER PROVIDER ORDERS Last Admin: 08/03/17 00:32 Dose: 10 ml Sodium Chloride (Normal Saline Flush 0.9%) 10 ml IVP Q8HR [facility] Last Admin: 08/03/17 14:02 Dose: Not Given Temazepam (Restoril) 15 mg PO QPM [facility] Trazodone HCl (Desyrel) 100 mg PO QPM [facility] Lorazepam [Ativan] 1 mg PO TID PRN 01/03/17 Levalbuterol Tartrate [Xopenex Hfa] 2 puffs INH Q4H PRN 06/21/17 traZODone [Desyrel] 300 mg PO QPM 06/21/17 Acetaminophen with Codeine [Acetaminophen-Cod #3 Tablet] 1 tab PO Q6HR PRN 08/01 Metoprolol Tartrate 100 mg PO BID 08/01/17 Objective - Vital Signs/Intake & Output Reviewed Vital Signs: Yes Vital Signs: Vital Signs x48h Temp Pulse Resp BP Pulse Ox 08/03/17 12:38 36.6 C 79 16 149/87 H 98 08/03/17 08:36 36.6 C 76 16 125/93 H Intake & Output: Intake & Output 07/31/17 08/01/17 08/02/17 08/03/17 23:59 23:59 23:59 23:59 Intake Total 5440.000 4568.333 3071.667 Output Total 1750 Balance 5440.000 4568.333 1321.667 - Objective General Appearance: positive: No acute distress, Alert Eyes Bilateral: positive: Normal inspection Eyes: OU Abnormal pupil (pinpoint), OU Scleral icterus ENT: positive: ENT inspection nml, No signs of dehydration Neck: positive: Nml inspection, Thyroid nml Respiratory: positive: Chest non-tender, Wheezes, Rhonchi (Bilateral crackles.) Cardiovascular: positive: Regular rate & rhythm, No gallop, Systolic murmur, Gallop/S4 Peripheral Pulses: 1+ Radial (R), 1+ Radial (L), 1+ Dorsalis pedis (R), 1+ Dorsalis pedis (L) Abdomen: positive: Tenderness, Guarding, Rebound, Hepatomegaly, Splenomegaly, Abnml bowel sounds, Other (rounded, obese) Back: positive: Nml inspection, CVA tenderness (L) (related to cellulitis.) Skin: positive: No rash (cellulitis LLQ, lower torso), Warm, Dry Extremities: positive: Pedal edema (pitting, increased from yesterday.), Joint swelling Neurologic/Psychiatric: positive: Disoriented to time, Weakness, Sensory loss, Depressed mood/affect, Other (Very poor historian.) Reflexes: Bicep (R): 2+, Bicep (L): 2+ - Lab Results Fish Bones: 08/03/17 05:06 08/03/17 05:06 Other Labs: Lab Results x24hrs 08/03/17 08/03/17 08/03/17 Range/Units 11:20 05:06 05:06 WBC 14.8 H (4.8-10.8) x10^3/uL RBC 3.89 L (4.70-6.10) 10^6/uL Hgb 12.1 L (14.0-18.0) g/dL Hct 37.9 L (42.0-52.0) % MCV 97.3 H (80.0-94.0) fL MCH 31.2 H (27.0-31.0) pg MCHC 32.1 (32.0-36.0) g/dL RDW 14.1 (12.0-15.0) % Plt Count 193 (130-450) 10^3/uL MPV 7.5 (7.4-11.4) fL Neut # 12.8 H (1.5-6.6) 10^3/uL Lymph # 0.9 L (1.5-3.5) 10^3/uL [place] # 0.7 (0.0-1.0) 10^3/uL Eos # 0.3 (0.0-0.7) 10^3/uL Baso # 0.1 (0.0-0.1) 10^3/uL Absolute Nucleated RBC 0.02 x10^3/uL Band Neuts % (Manual) Not Reportable Abnorm Lymph % (Manual) Not Reportable Nucleated RBC % 0.1 /100WBC Neutrophils # (Manual) Not Reportable Lymphocytes # (Manual) Not Reportable Monocytes # (Manual) Not Reportable Eosinophils # (Manual) Not Reportable Basophils # (Manual) Not Reportable Differential Comment MANUAL=AUTO DIFF Platelet Estimate NORMAL (130-450,000) (NORMAL) Platelet Morphology NORMAL APPEARANCE (NORMAL) RBC Morph Micro Appear NORMAL APPEARANCE (NORMAL) Sodium 136 (135-145) mmol/L Potassium 4.1 (3.5-5.0) mmol/L Chloride 102 (101-111) mmol/L Carbon Dioxide 27 (21-32) mmol/L Anion Gap 7.0 (6-13) BUN 10 (6-20) mg/dL Creatinine 0.8 (0.6-1.2) mg/dL Estimated GFR (MDRD) 95 (>89) Glucose 154 H (70-100) mg/dL Calcium 8.2 L (8.5-10.3) mg/dL Urine Color YELLOW Urine Clarity CLEAR (CLEAR) Urine pH 6.0 (5.0-7.5) PH Ur Specific [place] 1.020 (1.002-1.030) Urine Protein NEGATIVE (NEGATIVE) mg/dL Urine Glucose (UA) NEGATIVE (NEGATIVE) mg/dL Urine Ketones NEGATIVE (NEGATIVE) mg/dL Urine Occult Blood NEGATIVE (NEGATIVE) Urine Nitrite NEGATIVE (NEGATIVE) Urine Bilirubin NEGATIVE (NEGATIVE) Urine Urobilinogen 0.2 (NORMAL) (NORMAL) E.U./dL Ur Leukocyte Esterase NEGATIVE (NEGATIVE) Urine RBC 0-5 (0-5) /HPF Urine WBC 0-3 (0-3) /HPF Ur Squamous Epith Cells FEW Squamous (<= Few) Urine Bacteria None Seen (None Seen) /HPF Urine Mucus Few Strands Urine Culture Comments NOT INDICATED Last Dose Date Last Dose Time Vancomycin Trough (5.0-15.0) ug/mL Urine Opiates Screen POSITIVE H (NEGATIVE) Ur Oxycodone Screen POSITIVE H (NEGATIVE) Urine Methadone Screen NEGATIVE (NEGATIVE) Ur Propoxyphene Screen NEGATIVE (NEGATIVE) Ur Barbiturates Screen NEGATIVE (NEGATIVE) Ur Tricyclics Screen NEGATIVE (NEGATIVE) Ur Phencyclidine Scrn NEGATIVE (NEGATIVE) Ur Amphetamine Screen NEGATIVE (NEGATIVE) U Methamphetamines Scrn NEGATIVE (NEGATIVE) U Benzodiazepines Scrn POSITIVE H (NEGATIVE) Urine Cocaine Screen NEGATIVE (NEGATIVE) U Cannabinoids Screen NEGATIVE (NEGATIVE) 08/03/17 Range/Units 01:29 WBC (4.8-10.8) x10^3/uL RBC (4.70-6.10) 10^6/uL Hgb (14.0-18.0) g/dL Hct (42.0-52.0) % MCV (80.0-94.0) fL MCH (27.0-31.0) pg MCHC (32.0-36.0) g/dL RDW (12.0-15.0) % Plt Count (130-450) 10^3/uL MPV (7.4-11.4) fL Neut # (1.5-6.6) 10^3/uL Lymph # (1.5-3.5) 10^3/uL [place] # (0.0-1.0) 10^3/uL Eos # (0.0-0.7) 10^3/uL Baso # (0.0-0.1) 10^3/uL Absolute Nucleated RBC x10^3/uL Band Neuts % (Manual) Abnorm Lymph % (Manual) Nucleated RBC % /100WBC Neutrophils # (Manual) Lymphocytes # (Manual) Monocytes # (Manual) Eosinophils # (Manual) Basophils # (Manual) Differential Comment Platelet Estimate (NORMAL) Platelet Morphology (NORMAL) RBC Morph Micro Appear (NORMAL) Sodium (135-145) mmol/L Potassium (3.5-5.0) mmol/L Chloride (101-111) mmol/L Carbon Dioxide (21-32) mmol/L Anion Gap (6-13) BUN (6-20) mg/dL Creatinine (0.6-1.2) mg/dL Estimated GFR (MDRD) (>89) Glucose (70-100) mg/dL Calcium (8.5-10.3) mg/dL Urine Color Urine Clarity (CLEAR) Urine pH (5.0-7.5) PH Ur Specific [place] (1.002-1.030) Urine Protein (NEGATIVE) mg/dL Urine Glucose (UA) (NEGATIVE) mg/dL Urine Ketones (NEGATIVE) mg/dL Urine Occult Blood (NEGATIVE) Urine Nitrite (NEGATIVE) Urine Bilirubin (NEGATIVE) Urine Urobilinogen (NORMAL) E.U./dL Ur Leukocyte Esterase (NEGATIVE) Urine RBC (0-5) /HPF Urine WBC (0-3) /HPF Ur Squamous Epith Cells (<= Few) Urine Bacteria (None Seen) /HPF Urine Mucus Urine Culture Comments Last Dose Date 08-02-17 Last Dose Time 1905 Vancomycin Trough 10.6 (5.0-15.0) ug/mL Urine Opiates Screen (NEGATIVE) Ur Oxycodone Screen (NEGATIVE) Urine Methadone Screen (NEGATIVE) Ur Propoxyphene Screen (NEGATIVE) Ur Barbiturates Screen (NEGATIVE) Ur Tricyclics Screen (NEGATIVE) Ur Phencyclidine Scrn (NEGATIVE) Ur Amphetamine Screen (NEGATIVE) U Methamphetamines Scrn (NEGATIVE) U Benzodiazepines Scrn (NEGATIVE) Urine Cocaine Screen (NEGATIVE) U Cannabinoids Screen (NEGATIVE) - Diagnostic Imaging Diagnostic Imaging Results: positive: Final report reviewed Diagnostic Imaging Comments: Echocardiogram: 08/02/17: Normal LV size and function, EF 50-55%. RV ventricular enlargement. Mild right atrial enlargement. There is a mild mitral regurgitation. The RVSP at rest is 39mmHg. As compared to a previous echocardiogram that was completed at [facility] in [place], [place], there is new RV enlargement, and a resolution of LV hypertrophy. Abdominal US (liver only) ordered: pending. Assessment/Plan - Problem List (1) Cellulitis Impression: Patient has had an extension of his cellulitis since the time of admission and a new borderline was marked. This has not exceeded the boarders. The redness is now more localized toward the lower abdominal aspect with the same amount of redness as before in that area. It is located at LLQ abdomen and is quite painful on exam. Patient's abdomen appears non-symmetrical in appearance. Patient has been afebrile once arriving on the nursing floor. We are awaiting blood culture results. During today's exam, patient's cellulitis is not improved and patient has continued pain, redness and warmth. Plan: Vancomycin IV/Cefepime antibiotic treatment and monitor infection. Qualifiers: Site of cellulitis: trunk Site of cellulitis of trunk: abdominal wall Qualified Code(s): L03.311 - Cellulitis of abdominal wall (2) Altered mental status Impression: Patient has times of unclear thinking that has to do with baseline chronic deficit. Patient exhibits profound altered mental status during exam and with general interactions. For example, patient was on his merrily way to the bathroom at the time of my morning "check in" and he lost his train of thought and forgot why he was near the bathroom. The nursing information systems coordinator appropriately re -directed the patient toward the toilet. Plan: Fall precautions and continuity of care. We will avoid additional hypnotics or sedatives and have reduced his frequency and medication dose due to ongoing AMS. We will continue with trazodone, at a reduced dose for sleep. (3) Anxiety Impression: Patient is prescribed lorazepam 1mg TID at home, which had been continued on admission. Patient is mostly focused on his narcotics, and "uncontrolled pain" during this stay. Plan: Discontinued benzo and will schedule temazepam at HS to prevent withdrawal. (4) Opioid abuse Impression: Patient has a remote history of opioid abuse and is currently struggling with this. A [place] query report has shown at least 1,938 tablets of tylenol #3 were prescribed since 10/22/2016! Most recently patient filled a lorazepam 1mg prescription on 07/27/17, which gave him #30 tablets. 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 Care will be taken to avoid prescribing these types of medications upon discharge. Plan: Patient may benefit from a pain clinic after discharge. We will treat his acute pain for now, then gradually wean him off. (5) Pulmonary hypertension Impression: Confirmed with echocardiogram that was completed on 08/02/17 and notes mild pulmonary hypertension with an RVSP at rest is 39 mmHg. Plan: Spironolactone given today and will be increased to 50mg daily. (6) Systolic congestive heart failure with reduced left ventricular function, NYHA class 3 Impression: As per latest echocardiogram patient has systolic heart failure due to a reduced EF of 50-55%. Patient was not previously medically managed with diuretics. (7) Fatty (change of) liver, not elsewhere classified Impression: Moderate fatty liver is noted on admission CT scan. As stated earlier, patient took over 1,938 tylenol #3s since October 2016. In addition, patient has been prescribed 170 Vicodin or Percocet. All of these medications contain acetaminophen, which is concerning for portal hypertension as a cause for patient's ongoing abdominal girth. LFT labs completely normal. Patient is not jaundice upon exam. Trazodone dose reduced from 300 to 100mg at HS. Plan: Abdominal ultrasound-pending. Use hepatoxic medications with care.
[2017-08-03] MEDS ORDERED: MIN OIL/DIMETHICON/COCONUT OIL 92 GM TUBE TOP PRN (14:12)
[2017-08-03] MEDS ORDERED: ACETAMINOPHEN/CODEINE 300 MG/30 MG TABLET PO PRN (16:08)
[2017-08-03] MEDS: IBUPROFEN 600 MG TABLET PO SCH (16:18)
[2017-08-03] MEDS ORDERED: LORazepam 2 MG/ML VIAL IVP ONE (16:50)
[2017-08-03] MEDS: FUROSEMIDE 40 MG/4 ML VIAL IVP SCH (17:08)
[2017-08-03 17:11] LABS: INR 1.2 (0.8-1.2)
[2017-08-03 17:20] LABS: ALBUMIN 3.3 g/dL (3.2-5.5); BILIRUBIN,DIRECT 0.1 mg/dL (0.1-0.5); BILIRUBIN,TOTAL 0.9 mg/dL (0.2-1.0); TOTAL PROTEIN 7.2 g/dL (6.7-8.2)
[2017-08-03] MEDS: LORazepam 0.5 MG TABLET PO PRN (17:54)
[2017-08-03] MEDS: traZODone 50 MG TABLET PO SCH (21:16)
[2017-08-03] MEDS: TEMAZEPAM 15 MG CAPSULE PO SCH (21:17)
[2017-08-04] MEDS: IBUPROFEN 600 MG TABLET PO SCH ×4 (00:07→18:01)
[2017-08-04] MEDS: LORazepam 0.5 MG TABLET PO PRN ×4 (00:12→18:56)
[2017-08-04] MEDS: oxyCOD/ACETAMIN 5 MG/325 MG TABLET PO PRN ×6 (01:52→22:40)
[2017-08-04] MEDS: VANCOMYCIN 1.5 GM/NS 500 ML 1.5 GM/500 ML BAG IV SCH (01:56)
[2017-08-04] MEDS: SODIUM CHLORIDE FLUSH 0.9% 10 ML SYRINGE IVP PRN (01:57)
[2017-08-04] MEDS: CEFEPIME 2 GM in SODIUM CHLORIDE 0.9% MINIBAG 100 ML IV SCH ×3 (04:54→22:08)
[2017-08-04 05:29] LABS: BASOPHILS % (AUTO) 0.3 %; EOSINOPHILS # (AUTO) 0.4 10^3/uL (0.0-0.7); EOSINOPHILS % (AUTO) 3.4 %; HGB - HEMOGLOBIN 11.5 g/dL (14.0-18.0); LYMPHOCYTES % (AUTO) 9.4 %; MEAN CORPUSCULAR HEMOGLOBIN 30.8 pg (27.0-31.0); MEAN CORPUSCULAR HGB CONC 32.8 g/dL (32.0-36.0); MEAN CORPUSCULAR VOLUME 93.9 fL (80.0-94.0); MEAN PLATELET VOLUME 6.8 fL (7.4-11.4); MONOCYTES # (AUTO) 1.1 10^3/uL (0.0-1.0); MONOCYTES % (AUTO) 10.1 %; NEUTROPHILS # (AUTO) 8.1 10^3/uL (1.5-6.6); NEUTROPHILS % (AUTO) 76.8 %; PLT - PLATELET COUNT 231 10^3/uL (130-450); RED BLOOD COUNT 3.72 10^6/uL (4.70-6.10); RED CELL DISTRIBUTION WIDTH 13.6 % (12.0-15.0); WHITE BLOOD COUNT 10.5 x10^3/uL (4.8-10.8)
[2017-08-04 05:37] LABS: ALBUMIN 2.9 g/dL (3.2-5.5); ALBUMIN/GLOBULIN RATIO 0.8 (1.0-2.2); BILIRUBIN,TOTAL 0.6 mg/dL (0.2-1.0); CALCIUM 8.3 mg/dL (8.5-10.3); CREATININE 0.8 mg/dL (0.6-1.2); TOTAL PROTEIN 6.5 g/dL (6.7-8.2)
[2017-08-04] MEDS: SODIUM CHLORIDE FLUSH 0.9% 10 ML SYRINGE IVP SCH ×4 (05:37→22:10)
[2017-08-04] MEDS: METOPROLOL TARTRATE 50 MG TABLET PO SCH ×2 (08:18→20:53)
[2017-08-04] MEDS: SPIRONOLACTONE 25 MG TABLET PO SCH (08:18)
[2017-08-04] MEDS: FUROSEMIDE 40 MG/4 ML VIAL IVP SCH (08:19)
[2017-08-04] MEDS: POLYETHYLENE GLYCOL 3350 17 GM PACKET PO SCH (08:19)
[2017-08-04] MEDS: VANCOMYCIN INJ 1 GM, VANCOMYCIN INJ 500 MG in SODIUM CHLORIDE 0.9% 500 ML IV SCH (14:12)
--- NOTE | 2017-08-04 14:30 | PROVIDER PROGRESS NOTE ---
Subjective - Prog Note Date Prog Note Date: 08/04/17 Prog Note Time: 14:28 - Subjective Pt reports feeling: Improved Subjective: is somewhat less confused, although says several things out of context. He denies SOB, chest pain, N/V or a new cough. Current Medications - Current Medications Current Medications: Active Medications Furosemide (Lasix Inj 40 Mg Vial) 40 mg IVP DAILY [facility] Last Admin: 08/04/17 08:19 Dose: 40 mg Cefepime HCl 2 gm/ Sodium (Chloride) 100 mls @ 200 mls/hr IV Q8H [facility] Last Infusion: 08/04/17 14:10 Dose: Infused Vancomycin HCl 1 gm/Vancomycin HCl 500 mg/ Sodium Chloride 500 mls @ 250 mls/ hr IV Q12H [facility] Last Admin: 08/04/17 14:12 Dose: 250 mls/hr Ibuprofen (Motrin) 600 mg PO Q6HR [facility] Last Admin: 08/04/17 11:57 Dose: 600 mg Levalbuterol HCl (Xopenex) 1.25 mg INH RTQ4H PRN PRN Reason: Wheezing Lorazepam (Ativan) 1 mg PO Q6H PRN PRN Reason: Anxiety Last Admin: 08/04/17 11:57 Dose: 1 mg Metoprolol Tartrate (Lopressor) 100 mg PO BID [facility] Last Admin: 08/04/17 08:18 Dose: 100 mg Mineral Oil (Cavilon) 1 applic TOP PRN PRN PRN Reason: Skin Care Oxycodone/Acetaminophen (Percocet 5 Mg/325 Mg) 1 tab PO Q4HR PRN PRN Reason: PAIN Last Admin: 08/04/17 14:21 Dose: 1 tab Polyethylene Glycol (Miralax) 17 gm PO DAILY [facility] Last Admin: 08/04/17 08:19 Dose: Not Given Prochlorperazine Edisylate (Compazine Inj) 10 mg IVP Q6HR PRN PRN Reason: Nausea / Vomiting Sodium Chloride (Normal Saline Flush 0.9%) 10 ml IVP PRN PRN PRN Reason: NEEDED PER PROVIDER ORDERS Last Admin: 08/04/17 01:57 Dose: 10 ml Sodium Chloride (Normal Saline Flush 0.9%) 10 ml IVP Q8HR [facility] Last Admin: 08/04/17 14:13 Dose: Not Given Spironolactone (Aldactone) 50 mg PO DAILY [facility] Last Admin: 08/04/17 08:18 Dose: 50 mg Temazepam (Restoril) 15 mg PO QPM [facility] Last Admin: 08/03/17 21:17 Dose: 15 mg Trazodone HCl (Desyrel) 300 mg PO QPM [facility] Last Admin: 08/03/17 21:16 Dose: 300 mg Lorazepam [Ativan] 1 mg PO TID PRN 01/03/17 Levalbuterol Tartrate [Xopenex Hfa] 2 puffs INH Q4H PRN 06/21/17 traZODone [Desyrel] 300 mg PO QPM 06/21/17 Acetaminophen with Codeine [Acetaminophen-Cod #3 Tablet] 1 tab PO Q6HR PRN 08/01 Metoprolol Tartrate 100 mg PO BID 08/01/17 Objective - Vital Signs/Intake & Output Reviewed Vital Signs: Yes Vital Signs: Vital Signs x48h Temp Pulse Resp BP Pulse Ox 08/04/17 12:43 36.6 C 78 20 133/85 H 96 08/04/17 07:50 36.3 C L 72 16 155/61 H 96 Intake & Output: Intake & Output 08/01/17 08/02/17 08/03/17 08/04/17 23:59 23:59 23:59 23:59 Intake Total 5440.000 4568.333 4521.667 1440 Output Total 2600 Balance 5440.000 4568.333 1293.896 0614 - Objective General Appearance: positive: No acute distress, Alert Eyes Bilateral: positive: Normal inspection Eyes: OU Scleral icterus ENT: positive: ENT inspection nml, Pharynx nml, No signs of dehydration Neck: positive: Nml inspection, Thyroid nml, No JVD, Trachea midline Respiratory: positive: Chest non-tender, No respiratory distress, Breath sounds nml Cardiovascular: positive: Regular rate & rhythm, No gallop, Systolic murmur Peripheral Pulses: 2+ Radial (R), 2+ Radial (L) Abdomen: positive: Non-tender, Tenderness, Hepatomegaly, Splenomegaly Back: positive: Nml inspection, CVA tenderness (L) (related to cellulitis) Skin: positive: Color nml, No rash, Warm, Dry Extremities: positive: Non-tender, Full ROM, Nml appearance, No pedal edema Neurologic/Psychiatric: positive: Disoriented to time, Weakness, Sensory loss, Depressed mood/affect Reflexes: Bicep (R): 3+, Bicep (L): 3+ - Lab Results Fish Bones: 08/04/17 05:06 08/04/17 05:06 Other Labs: Lab Results x24hrs 08/04/17 08/04/17 08/03/17 Range/Units 05:06 05:06 16:58 WBC 10.5 (4.8-10.8) x10^3/uL RBC 3.72 L (4.70-6.10) 10^6/uL Hgb 11.5 L (14.0-18.0) g/dL Hct 34.9 L (42.0-52.0) % MCV 93.9 (80.0-94.0) fL MCH 30.8 (27.0-31.0) pg MCHC 32.8 (32.0-36.0) g/dL RDW 13.6 (12.0-15.0) % Plt Count 231 (130-450) 10^3/uL MPV 6.8 L (7.4-11.4) fL Neut # 8.1 H (1.5-6.6) 10^3/uL Lymph # 1.0 L (1.5-3.5) 10^3/uL [place] # 1.1 H (0.0-1.0) 10^3/uL Eos # 0.4 (0.0-0.7) 10^3/uL Baso # 0.0 (0.0-0.1) 10^3/uL Absolute Nucleated RBC 0.01 x10^3/uL Nucleated RBC % 0.1 /100WBC PT 13.0 H (9.9-12.6) secs INR 1.2 (0.8-1.2) Sodium 138 (135-145) mmol/L Potassium 3.5 (3.5-5.0) mmol/L Chloride 102 (101-111) mmol/L Carbon Dioxide 28 (21-32) mmol/L Anion Gap 8.0 (6-13) BUN 13 (6-20) mg/dL Creatinine 0.8 (0.6-1.2) mg/dL Estimated GFR (MDRD) 95 (>89) Glucose 107 H (70-100) mg/dL Calcium 8.3 L (8.5-10.3) mg/dL Total Bilirubin 0.6 (0.2-1.0) mg/dL Direct Bilirubin (0.1-0.5) mg/dL GGT (8-55) IU/L AST 38 (10-42) IU/L ALT 39 (10-60) IU/L Alkaline Phosphatase 79 (42-121) IU/L Total Protein 6.5 L (6.7-8.2) g/dL Albumin 2.9 L (3.2-5.5) g/dL Globulin 3.6 (2.1-4.2) g/dL Albumin/Globulin Ratio 0.8 L (1.0-2.2) 08/03/17 Range/Units 16:58 WBC (4.8-10.8) x10^3/uL RBC (4.70-6.10) 10^6/uL Hgb (14.0-18.0) g/dL Hct (42.0-52.0) % MCV (80.0-94.0) fL MCH (27.0-31.0) pg MCHC (32.0-36.0) g/dL RDW (12.0-15.0) % Plt Count (130-450) 10^3/uL MPV (7.4-11.4) fL Neut # (1.5-6.6) 10^3/uL Lymph # (1.5-3.5) 10^3/uL [place] # (0.0-1.0) 10^3/uL Eos # (0.0-0.7) 10^3/uL Baso # (0.0-0.1) 10^3/uL Absolute Nucleated RBC x10^3/uL Nucleated RBC % /100WBC PT (9.9-12.6) secs INR (0.8-1.2) Sodium (135-145) mmol/L Potassium (3.5-5.0) mmol/L Chloride (101-111) mmol/L Carbon Dioxide (21-32) mmol/L Anion Gap (6-13) BUN (6-20) mg/dL Creatinine (0.6-1.2) mg/dL Estimated GFR (MDRD) (>89) Glucose (70-100) mg/dL Calcium (8.5-10.3) mg/dL Total Bilirubin 0.9 (0.2-1.0) mg/dL Direct Bilirubin 0.1 (0.1-0.5) mg/dL GGT 46 (8-55) IU/L AST 30 (10-42) IU/L ALT 30 (10-60) IU/L Alkaline Phosphatase 72 (42-121) IU/L Total Protein 7.2 (6.7-8.2) g/dL Albumin 3.3 (3.2-5.5) g/dL Globulin 3.9 (2.1-4.2) g/dL Albumin/Globulin Ratio (1.0-2.2) - Diagnostic Imaging Diagnostic Imaging Results: positive: Final report reviewed Assessment/Plan - Problem List (1) Cellulitis Impression: Patient has cellulitis on LLQ of abdomen that is more localized to the lower aspect and less tender upon exam. Patient has been afebrile. We are awaiting blood culture results, that remain NGTD. During today's exam, patient's cellulitis is stable and patient has continued discomfort redness and warmth. There appears to be a pencil sized scab on left panis, that the has pointed out EVERY day and gives ideas about "how this could have occurred, either from a hyperdermic needle or a bee sting". Plan: Vancomycin IV/Cefepime antibiotic treatment and monitor infection. If patient continues to improve, plan for discharge tomorrow. Qualifiers: Site of cellulitis: trunk Site of cellulitis of trunk: abdominal wall Qualified Code(s): L03.311 - Cellulitis of abdominal wall (2) Altered mental status Impression: Patient has times of unclear thinking that has to do with baseline chronic deficit. Patient exhibits improved altered mental status during exam and with general interactions. Plan: Fall precautions and continuity of care. We will avoid additional hypnotics or sedatives and have reduced his frequency and medication dose due to ongoing AMS. We will continue with trazodone, at a reduced dose for sleep. (3) Anxiety Impression: Patient is prescribed lorazepam 1mg TID at home, which had been continued on admission. Patient is mostly focused on his narcotics, and "uncontrolled pain" during this stay. Plan: Continue the same home medications. (4) Opioid abuse Impression: Patient has a remote history of opioid abuse and is currently struggling with this. A [place] query report has shown at least 1,938 tablets of tylenol #3 were prescribed since 10/22/2016. Most recently patient filled a lorazepam 1mg prescription on 07/27/17, which gave him #90 tablets AND tylenol #3, 30 tablets prescribed on 07/25/17, which would have provided 5 days of doses, leaving ~10- 12 pills for when he gets home. 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 Care will be taken to avoid prescribing these types of medications upon discharge. , Milana wanted to make sure that I could prescribe additional narcotics for discharge to prevent him from narcotic withdrawal. Plan: Patient may benefit from a pain clinic after discharge. We will treat his acute pain for now, then gradually wean him to his normal home dose. (5) Pulmonary hypertension Impression: Confirmed with echocardiogram that was completed on 08/02/17 and notes mild pulmonary hypertension with an RVSP at rest is 39 mmHg. Plan: Spironolactone 50mg daily, and furosemide 40mg daily. We will plan to prescribe for home to appropriately treat this condition. (6) Systolic congestive heart failure with reduced left ventricular function, NYHA class 3 Impression: As per latest echocardiogram patient has systolic heart failure due to a reduced EF of 50-55%. Patient was not previously medically managed with diuretics. Plan: Medical management. (7) Fatty (change of) liver, not elsewhere classified Impression: Moderate fatty liver is noted on admission CT scan. As stated earlier, patient took over 1,938 tylenol #3s since October 2016. In addition, patient has been prescribed 170 Vicodin or Percocet. All of these medications contain acetaminophen, which is concerning for portal hypertension, or as a cause for patient's ongoing abdominal girth, and fatty liver. LFT labs completely normal. Patient is not jaundice upon exam. Abdominal ultrasound was refused, so ordered was cancelled. Plan: Use hepatoxic medications with care.
[2017-08-04] MEDS: TEMAZEPAM 15 MG CAPSULE PO SCH (20:54)
[2017-08-04] MEDS: traZODone 50 MG TABLET PO SCH (20:56)
[2017-08-05] MEDS: IBUPROFEN 600 MG TABLET PO SCH ×2 (00:46→05:03)
[2017-08-05] MEDS: LORazepam 0.5 MG TABLET PO PRN ×2 (01:28→09:29)
[2017-08-05] MEDS: VANCOMYCIN INJ 1 GM, VANCOMYCIN INJ 500 MG in SODIUM CHLORIDE 0.9% 500 ML IV SCH (02:09)
[2017-08-05] MEDS: oxyCOD/ACETAMIN 5 MG/325 MG TABLET PO PRN ×3 (02:24→11:25)
[2017-08-05] MEDS: CEFEPIME 2 GM in SODIUM CHLORIDE 0.9% MINIBAG 100 ML IV SCH (06:37)
[2017-08-05] MEDS: SODIUM CHLORIDE FLUSH 0.9% 10 ML SYRINGE IVP SCH (06:48)
--- NOTE | 2017-08-05 08:29 | DISCHARGE SUMMARY ---
Discharge Summary Admit Date: 07/31/17 Discharge Date: 08/05/17 Discharging Provider: [facility] Primary Care Provider: Radha Garcia Code Status: Attempt Resuscitation Condition at Discharge: Good Discharge Disposition: 01 Home, Self Care - DIAGNOSES Admission Diagnoses: Cellulitis, unspecified (L03.90) Altered mental status, unspecified (R41.82) Anxiety disorder, unspecified (F41.9) Discharge Diagnoses with Status of Each Condition: Cellulitis (L03.90) Localized and stable, antibiotic course can be concluded as out patient. Altered mental status (R41.82) ongoing, chronic. Anxiety (F41.9) ongoing, chronic. Opioid abuse (F11.10) ongoing, chronic and need follow ups. Pulmonary hypertension (I27.20) newly diagnosed, stable, medical management. Systolic congestive heart failure with reduced left ventricular function, NYHA class 3 (I50.20) newly diagnosed, stable, medical management. - HPI History of Present Illness: Mr. Dominic Viveros is a 72-year-old white male with a past medical history of hypertension, CAD, ID, atrial fibrillation, asthma COPD, GERD, hiatal hernia, BPH, nocturia, chronic sinusitis, depression, anxiety, claustrophobia, osteoarthritis, chronic back pain, herpes zoster, CABG, cholecystectomy, EGD, hip replacement, knee replacement, and retroperitineal hematoma-from aggressive coughing. He presented to the ED via ambulance after having left lower quadrant abdominal discomfort that has become more tender with redness and warmth over the past week. He denies fevers, chills or a new cough. He will be admitted for treatment of left abdominal cellulitis. - CONSULTS | PROCEDURES Consultations: none - HOSPITAL COURSE Hospital Course: Patient had an expected course of treatment with IV zosyn, IV vancomycin, IV cefotaxime and IV cefepime. Blood cultures were taken in the ED that remained NGTD throughout his stay. He was transitioned to two PO antibiotics upon discharge. Although the LLQ was not resolved, it was making significant improvements, with less swelling, pain and a more localized area of redness. Pain control was an issue throughout the hospital stay as the patient requested "percocet", rather than tylenol #3 as prescribed at home. Patient continued to ask for narcotics and stated that his pain was out of control. Morphine IV was given a few times including 08/01-08/03, but was stopped per patient request as this was "confusing him". Patient did become confused more so at night and pulled out IV, called his and wanted to leave several times. Patient had scheduled Motrin that he continued to refuse and only had doses on 08/03 and as he reported that it upset his stomach. Percocet was allowed every 4 hours , only one tablet. At the time of discharge patient's , Milana was trembling and asked for more narcotics as they were all out of narcotics at home. She states that when they were in [place], [place] in early July, her was prescribed 10 or 20 pain pills there. I printed out a [facility] report and counted at least 1900 tylenol #3s since October of 2016, most recently 30 tablets prescribed on 07/25/17. A call to PCP Radha Garcia was made, and was advised not to prescribe any more pain medications. I prescribed 4 tablets to ensure patient would not have withdrawal symptoms and encouraged them to get help at a pain clinic. Soon after admission, patient became fluid overloaded and demonstrated increased abdominal girth, and pitting BLE edema. Due to the patient's cardiac history, an echocardiogram was obtained which showed pulmonary hypertension, mild RV enlargement, EF of 50-55% and abnormal right heart pressures, the RVSP at rest is 39mmHg. Patient was started on medical management of Furosemide IV 40mg daily, spironolactone 50mg BID and referred to cardiac rehab after the cellulitis is resolved. On the day of discharge the patient was febrile with a normal WBC count and hemodynamically stable. He was transported via private car home with in stable condition and no oxygen requirements. - ALLERGIES Allergies/Adverse Reactions: Allergies Allergy/AdvReac Type Severity Reaction Status Date / Time albuterol Allergy Severe heart Verified 07/31/17 20:41 palpatation pantoprazole sodium * Allergy Intermediate Nausea Verified 07/31/17 20:41 [From Protonix] Iuvkpln-Ukt-Vke Reductase Allergy Intermediate Unknown Verified 07/31/17 20:41 Inhibitor Sulfa (Sulfonamide Allergy Intermediate Rash Verified 07/31/17 20:41 Antibiotics) latex Allergy Mild Itching Verified 07/31/17 20:41 diazepam [From Valium] AdvReac Severe DELIRIUM Verified 08/01/17 08:37 - MEDICATIONS Home Medications: Ambulatory Orders Medication Instructions Recorded Confirmed Lorazepam [Ativan] 1 mg PO TID PRN 01/03/17 08/01/17 Levalbuterol Tartrate [Xopenex Hfa] 2 puffs INH Q4H PRN 06/21/17 08/01/17 traZODone [Desyrel] 300 mg PO QPM 06/21/17 08/01/17 Acetaminophen with Codeine 1 tab PO Q6HR PRN 08/01/17 08/01/17 [Acetaminophen-Cod #3 Tablet] Metoprolol Tartrate 100 mg PO BID 08/01/17 08/01/17 Acetaminophen/Cod 300/30 [Tylenol 1 each PO ONCE 1 Days #4 tablet 08/05/17 #3] Cephalexin [Keflex] 500 mg PO QID 10 Days #40 capsule 08/05/17 Doxycycline Hyclate 100 mg PO BID 10 Days #20 tablet 08/05/17 Furosemide 20 mg PO DAILY #30 tablet 08/05/17 Ibuprofen [Motrin] 600 mg PO Q6HR tablet 08/05/17 Spironolactone 50 mg PO BID #60 tablet 08/05/17 Home Medications Other | Comments: Tylenol #3, 4 tablets were given in paper form to treat LLQ cellulitis. - PHYSICAL EXAM AT DISCHARGE General Appearance: positive: No acute distress, Alert, Other (baseline confusion, saying things out of context.) Eyes Bilateral: positive: Normal inspection ENT: positive: ENT inspection nml, Pharynx nml, No signs of dehydration Neck: positive: Nml inspection, Thyroid nml, No JVD, Trachea midline Respiratory: positive: Chest non-tender, No respiratory distress, Breath sounds nml Cardiovascular: positive: Regular rate & rhythm, No gallop, Systolic murmur Peripheral Pulses: positive: 2+ Abdomen: positive: Nml bowel sounds, No distention, Tenderness, Rebound (LLQ tenderness, and gaurding. Cellulitis still present, but improving each day.), Hepatomegaly Back: positive: Nml inspection, CVA tenderness (L) (LLQ, torso, flank left.) Skin: positive: Color nml, No rash, Warm, Dry Extremities: positive: Non-tender, Full ROM, Nml appearance, Pedal edema (mild, dependent.) Neurologic/Psychiatric: positive: Disoriented to time, Weakness, Sensory loss, Depressed mood/affect Reflexes: Bicep (R): 2+, Bicep (L): 2+ - LABS Result Diagrams: 08/04/17 05:06 08/04/17 05:06 - DIAGNOSTIC IMAGING Diagnostic Imaging Results: Final report reviewed Diagnostic Imaging Results Comments: Abdominal/pelvis CT on admission: FINDINGS: Lung Bases: Unremarkable. Liver: Fatty. No suspicious masses. Gallbladder/Bile Ducts: Unremarkable post cholecystectomy. Spleen: Unremarkable. Pancreas: Unremarkable. Adrenal Glands: Unremarkable. Kidneys: Unremarkable. No suspicious masses or hydronephrosis. Peritoneal Cavity/Bowel: Colonic diverticulosis. No bowel obstruction or inflammatory process seen. No free air or significant free fluid. No masses or adenopathy. The appendix is normal. No excessive stool burden. Pelvic Organs: Mostly obscured by streak artifact. Grossly unremarkable where seen. Vasculature: Moderate atherosclerotic disease of the aorta and branches. No aneurysm seen. Bones: No significant abnormality with note of bilateral hip replacements and lower lumbar fusion. Other: Left lower abdomen/pelvic wall subcutaneous edema with skin thickening. No discrete abscess or tracking soft tissue gas seen. No definitive deep space involvement. Subacute right retroperitoneal hematoma has decreased in size from the prior study. No evidence of active bleeding. Hematoma currently measures approximately 6 x 3 x 6 cm. IMPRESSION: 1. Findings consistent with left lower abdominal/pelvic wall cellulitis but without drainable abscess or soft tissue gas seen. 2. Improving subacute right retroperitoneal hematoma. No evidence of interval or active bleeding. 3. Fatty liver. 4. Colonic diverticulosis. 5. Previous cholecystectomy. 6. Moderate atherosclerotic disease of the aorta and branches. Chest x-ray 2 view 08/01/17: FINDINGS: Lungs/Pleura: Lung volumes are mildly low, but unchanged. Increased left basilar retrocardiac consolidation compared to prior. No other focal consolidation. No evidence for pleural effusion or pneumothorax. Mediastinum: Stable heart size and mediastinum. Sternal wires appear intact. Other: None. IMPRESSION: 1. Accounting for stable mild levolumbar this, there is mild increase in left basilar consolidation which could represent atelectasis or possibly mild pneumonia. Abdominal/pelvic CT without contrast due to concerns of necrotizing fasciitis : FINDINGS: Lung Bases: Unremarkable. Liver: Diffuse moderate fatty liver, better observed on contrast enhanced study. Otherwise unremarkable. Gallbladder/Bile Ducts: Gallbladder surgically absent. No dilated bile ducts. Spleen: Normal. Pancreas: Normal. Adrenal Glands: Normal. Kidneys: Unremarkable on noncontrast imaging. No nephrolithiasis, hydronephrosis or hydroureter. Peritoneal Cavity/Bowel: Colonic diverticulosis, as noted previously without changes of diverticulitis. No obstruction or inflammatory bowel disease. No free fluid, free air or adenopathy. No masses or acute inflammatory process. The appendix and terminal ileum are well visualized and normal. Pelvic Organs: Largely obscured by streak artifact from bilateral hip replacements, as previously. No gross abnormality, free fluid or adenopathy. Vasculature: No aneurysms or other significant abnormality. Bones: Postoperative changes with interbody fusion and disk replacement L4-L5 and L5-S1, chronic and stable. Bilateral total hip replacements, grossly intact. No acute process or metastatic disease. Other: Generalized left mid to lower abdomen abdominal wall thickening/edema consistent with cellulitis, similar to prior exam. No abscess or drainable fluid collection. Stable right lower quadrant retroperitoneal hematoma 6.5 x 3.3 cm, unchanged. IMPRESSION: Stable abdomen and pelvic CT scan. No definite changes of necrotizing fasciitis. Left sided abdominal and upper pelvic wall edema and system with cellulitis, stable. No demonstrated abscess. Stable retroperitoneal hematoma on the right. 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 No free fluid, free air or abscess. Echocardiogram: 08/02/17: Normal LV size and function, EF 50-55%. RV ventricular enlargement. Mild right atrial enlargement. There is a mild mitral regurgitation. The RVSP at rest is 39mmHg. As compared to a previous echocardiogram that was completed at [facility] in [place], [place], there is new RV enlargement, and a resolution of LV hypertrophy. - FOLLOW UP Follow Up: You were treated for your right abdominal cellulitis with IV antibiotics, now changed to oral antibiotics. The blood cultures that were obtained on 07/31 and 08/01 were both negative. You had an echocardiogram that showed a reduced ejection fraction of 50-55%. The right ventricle has mild enlargement and pulmonary hypertension. Medical management was started. I spoke with your PCP, Radha Garcia. She believes you should have tylenol # 3s left from her script, and advised me not to give additional narcotics. Also , there was a prescription for 30 tablets on 07/25/[address] Mojica. Cardiac rehabilitation is recommended, it is located near the [facility] near our ED. Please see a pain clinic, which your PCP can set up. Take all of your medications as prescribed. See your PCP in 3-5 days. - TIME SPENT Time Spent in Discharge (Minutes): 90
[2017-08-05] MEDS: POLYETHYLENE GLYCOL 3350 17 GM PACKET PO SCH (08:52)
[2017-08-05] MEDS: METOPROLOL TARTRATE 50 MG TABLET PO SCH (09:29)
[2017-08-05] MEDS: FUROSEMIDE 40 MG/4 ML VIAL IVP SCH (09:29)
[2017-08-05] MEDS: SPIRONOLACTONE 25 MG TABLET PO SCH (09:29)
--- NOTE | 2017-08-05 10:03 | Discharge Plan ---
Discharge Plan Disposition: Home, Self Care Condition: Good Prescriptions: Acetaminophen/Cod 300/30 [Tylenol #3] 1 each PO ONCE 1 Days #4 tablet Cephalexin [Keflex] 500 mg PO QID 10 Days #40 capsule Doxycycline Hyclate 100 mg PO BID 10 Days #20 tablet Furosemide 20 mg PO DAILY #30 tablet Spironolactone 50 mg PO BID #60 tablet Diet: Low Sodium Activity Restrictions: No Restrictions Shower Restrictions: No Driving Restrictions: No Weight Bearing: Full Weight Additional Instructions or Follow Up instructions: You were treated for your right abdominal cellulitis with IV antibiotics, now changed to oral antibiotics. The blood cultures that were obtained on 07/31 and 08/01 were both negative. You had an echocardiogram that showed a reduced ejection fraction of 50-55%. The right ventricle has mild enlargement and pulmonary hypertension. Medical management was started. I spoke with your PCP, Radha Garcia. She believes you should have tylenol # 3s left from her script, and advised me not to give additional narcotics. Also , there was a prescription for 30 tablets on 07/25/[address] Mojica. Cardiac rehabilitation is recommended, it is located near the [facility] near our ED. Please see a pain clinic, which your PCP can set up. Take all of your medications as prescribed. See your PCP in 3-5 days. No Smoking: If you smoke, Please STOP! Call for help. Follow-up with: RADHA GARCIA [Primary Care Provider] -
[2017-08-05 10:54] VITALS: BP 144/80
== END 2017-08-05 11:29 | disposition home or self-care (01) | DRG 603 ==
LOC: EDUNIT# → ED 20:35 → MS2 23:48
PROVIDERS: ADMIT Hospitalist; ATTEND Nurse Practitioner
DX: L03.311 Cellulitis of abdominal wall (principal); I10 Essential (primary) hypertension; I50.20 Unspecified systolic (congestive) heart failure; R41.82 Altered mental status, unspecified; F41.9 Anxiety disorder, unspecified; F11.10 Opioid abuse, uncomplicated; S30.1XXA Contusion of abdominal wall, initial encounter; I27.20 Pulmonary hypertension, unspecified; I11.0 Hypertensive heart disease with heart failure; I25.10 Atherosclerotic heart disease of native coronary artery without angina pectoris; I48.91 Unspecified atrial fibrillation; J44.9 Chronic obstructive pulmonary disease, unspecified; K21.9 Gastro-esophageal reflux disease without esophagitis; K44.9 Diaphragmatic hernia without obstruction or gangrene; N40.1 Benign prostatic hyperplasia with lower urinary tract symptoms; R35.1 Nocturia; J32.8 Other chronic sinusitis; F32.9 Major depressive disorder, single episode, unspecified; Z96.649 Presence of unspecified artificial hip joint; F40.240 Claustrophobia; G89.29 Other chronic pain; M54.9 Dorsalgia, unspecified; K76.0 Fatty (change of) liver, not elsewhere classified; I70.0 Atherosclerosis of aorta; K57.90 Diverticulosis of intestine, part unspecified, without perforation or abscess without bleeding; M19.90 Unspecified osteoarthritis, unspecified site; Z96.659 Presence of unspecified artificial knee joint; Z96.643 Presence of artificial hip joint, bilateral; X50.9XXA Other and unspecified overexertion or strenuous movements or postures, initial encounter; Y93.89 Activity, other specified; Y99.8 Other external cause status; I25.2 Old myocardial infarction; Z95.1 Presence of aortocoronary bypass graft; Z98.1 Arthrodesis status; Z86.19 Personal history of other infectious and parasitic diseases; Z87.891 Personal history of nicotine dependence; Z79.899 Other long term (current) drug therapy
CPT/HCPCS: 36415; 71020; 74176; 74177; 80048; 80053; 80076; 80306; 81001; 81003; 82140; 82977; 83036; 83605; 84443; 85025; 85610; 87040; 87086; 93306; 96365; 96367; 96375; 99284

== ENCOUNTER 2017-08-08 08:28 | Emergency (ER) | payer MEDICARE ==
[2017-08-08 08:46] VITALS: BP 160/91
--- NOTE | 2017-08-08 09:03 | ED Physician Documentation ---
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 GERD HH EGD BPH depr anxiety OA knee and hip replacements and substance abuse admitted 08/01=29 for abd wall cellulitis after a stong or bity to abd wall while in [place] had a CT which did not show abscess or nec fasc was on 4 IV ab (zosyn vanco cefotaxime and cefipime) while admitted, improved, was dced on keflex and doxy, blood cx were neg also found to have edema and dc on diuretics pt returns today because of pain and now he has drainage reports fevers at home as well Review of Systems Constitutional: reports: Fever GI: reports: Abdominal Pain (skin) Skin: reports: Rash Endocrine: denies: Easy bruising / bleeding Immunocompromised: denies: Immunocompromised PD PAST MEDICAL HISTORY - Past Medical History Cardiovascular: Hypertension, Coronary artery disease, IA, Atrial fibrillation Respiratory: Asthma, COPD Neuro: None Endocrine/Autoimmune: None GI: GERD, Hiatal hernia, Diverticulitis : Benign prostate hypertrophy, Nocturia HEENT: Chronic sinusitis, Chronic hearing loss Psych: Depression, Anxiety, Claustrophobia Musculoskeletal: Osteoarthritis, Chronic back pain, Other Derm: Herpes zoster, Other - Past Surgical History Past Surgical History: Yes General: Cholecystectomy, EGD Ortho: Hip replacement, Knee replacement, Other Cardiovascular: CABG, Other HEENT: Other - Present Medications Home Medications: Ambulatory Orders Medication Instructions Recorded Confirmed Lorazepam [Ativan] 1 mg PO TID PRN 01/03/17 08/08/17 Levalbuterol Tartrate [Xopenex Hfa] 2 puffs INH Q4H PRN 06/21/17 08/08/17 traZODone [Desyrel] 300 mg PO QPM 06/21/17 08/08/17 Metoprolol Tartrate 100 mg PO BID 08/01/17 08/08/17 Cephalexin [Keflex] 500 mg PO QID 10 Days #40 capsule 08/05/17 08/08/17 Doxycycline Hyclate 100 mg PO BID 10 Days #20 tablet 08/05/17 08/08/17 Furosemide 20 mg PO DAILY #30 tablet 08/05/17 08/08/17 Ibuprofen [Motrin] 600 mg PO Q6HR tablet 08/05/17 08/08/17 Spironolactone 50 mg PO BID #60 tablet 08/05/17 08/08/17 - Allergies Allergies/Adverse Reactions: Allergies Allergy/AdvReac Type Severity Reaction Status Date / Time albuterol Allergy Severe heart Verified 08/08/17 09:53 palpatation pantoprazole sodium * Allergy Intermediate Nausea Verified 08/08/17 09:53 [From Protonix] Fhddfmh-Pkk-Uje Reductase Allergy Intermediate Unknown Verified 08/08/17 09:53 Inhibitor Sulfa (Sulfonamide Allergy Intermediate Rash Verified 08/08/17 09:53 Antibiotics) latex Allergy Mild Itching Verified 08/08/17 09:53 diazepam [From Valium] AdvReac Severe DELIRIUM Verified 08/08/17 09:53 acetaminophen [From Churdan] AdvReac Anxiety Verified 08/08/17 09:53 hydrocodone [From Churdan] AdvReac Anxiety Verified 08/08/17 09:53 morphine AdvReac Anxiety Verified 08/08/17 09:53 - Social History Does the pt smoke?: No Smoking Status: Never smoker Does the pt drink ETOH?: Yes Does the pt have substance abuse?: No - Immunizations Immunizations are current?: Yes - POLST Patient has POLST: No POLST Status: Full Code PD ED PE NORMAL - Vitals Vital signs reviewed: Yes - Cardiac Cardiac: RRR - Respiratory Respiratory: No respiratory distress, Clear bilaterally - Abdomen Abdomen: Other (large region of cellulitis to lower left abd but receded from initial lines drawn while admitted, beefy red central, small pustule draining approx 2-3 cc thin purulent material, no necrosis or crepitus, culture taken) Results - Vitals Vitals: Vital Signs - 24 hr 08/08/17 08:38 Temperature 36.2 C L Heart Rate 70 Respiratory 18 Rate Blood Pressure 160/91 H O2 Saturation 95 Oxygen O2 Source [With Activity] Room air O2 Source Room air - Labs Labs: Microbiology 08/08/17 09:00 Wound Culture - Preliminary Abdomen - Rads (name of study) abd wall sono Radiology: See rad report (no sig pocket of abscess to drain, several small ( 0.6 cm thick) fluid collections, no subcut air, sub ccut edema was noted) PD MEDICAL DECISION MAKING - ED course ED course: req hospitalist to come see pt in ER and she advised cellulitis is improved from admit and from dc pt was on zosyn vanco cefotaxime cefipime while admitted pt req pain meds - per inpt notes [facility] rview indictaes pt has received 1900 controlled substance untis from [place] in th last 12 m and that pt also got narcotics while he was in [place], and that his case was discussed with his PMD and he is not to be prescribed or given any narcotics,he states he already took motrin so i gave him tylenol Departure - Departure Disposition: Home, Self Care Clinical Impression: Cellulitis Qualifiers: Site of cellulitis: trunk Site of cellulitis of trunk: abdominal wall Qualified Code(s): L03.311 - Cellulitis of abdominal wall Condition: Good Instructions: ED Infec Skin Cellulitis Follow-Up: OLIVERIO BARTH [Primary Care Provider] - (within 48 hr for a recheck) Comments: The ultrasound did not show any large abscess to drain - there were two small collections of fluid but they were only a half cm thick and located about 4-5 cm under the skin so would be very difficult to find and drain at this time. Over time these pockets may become more organized and enlarge and need drainage - possibly by radiology under ultrasound guidance since they cannot be palpated from the surface. Your hospitalist came to see you in the ER and advises that the cellulitis continues to improve and she does not feel you need to be re-admitted for more IV antibiotics at this time For now, continue the antibiotics as prescribed. The wound culture will be resulted within approx 3 days and if there is a need to change antibiotics, the ER staff will contact you. Follow up with your PMD this week for a recheck Return if worse
[2017-08-08] MEDS ORDERED: ACETAMINOPHEN 325 MG TABLET PO STA (09:04)
--- NOTE | 2017-08-08 10:09 | Ultrasound Report ---
EXAM: ABDOMEN ULTRASOUND LIMITED EXAM DATE: 08/08/2017 09:52 AM. CLINICAL HISTORY: Draining abd wall cellulitis no palp abscess. COMPARISON: None. TECHNIQUE: Real-time scanning was performed with static images obtained. Region of interest: Left low er quadrant in the region of the clinical abnormality. FINDINGS: The region of the clinical abnormality at the left lower quadrant, there are a few irregular subcutan eous collections of fluid measuring up to 1.9 x 0.5 x 2.0 cm and 1.8 x 0.6 x 3.6 cm, respectively. Th ere is regional subcutaneous edema. IMPRESSION: Left lower quadrant subcutaneous fluid collections as noted above. [facility] Referring Provider Line: [phone] SITE ID: [id number]
--- NOTE | 2017-08-08 10:09 | Ultrasound Preliminary Report ---
Exam: US ABDOMEN LIMITED IMPRESSION: Left lower quadrant subcutaneous fluid collections as noted above. [facility] SITE ID: [id number]
== END 2017-08-08 10:30 | disposition home or self-care (01) ==
LOC: ED 08:28
DX: L03.311 Cellulitis of abdominal wall (principal); I25.10 Atherosclerotic heart disease of native coronary artery without angina pectoris; I25.2 Old myocardial infarction; Z95.1 Presence of aortocoronary bypass graft
CPT/HCPCS: 76705; 87070; 87181; 87205; 99283; A9270

== ENCOUNTER 2017-08-11 15:52 | Inpatient (IN) | payer MEDICARE ==
[2017-08-11] MEDS ORDERED: oxyCOD/ACETAMIN 5 MG/325 MG TABLET PO STA (18:12)
[2017-08-11] MEDS ORDERED: VANCOMYCIN INJ 2 GM in SODIUM CHLORIDE 0.9% 500 ML IV STA (18:12)
--- NOTE | 2017-08-11 18:14 | ED Physician Documentation ---
History of Present Illness - Stated complaint Stated Complaint: ABD REDNESS/LAB RESULT - Chief complaint Chief Complaint: General - History obtained from History obtained from: Patient - History of Present Illness Timing: Other (He has been dealing with an abdominal wall cellulitis for a couple of weeks now, he was an inpatient on vancomycin and improved but did not resolve. He was seen here a few days ago and had an ultrasound showing some small fluid collections but nothing coalescent but could be drained. Culture came back positive for MRSA and he returns for further evaluation and treatment. ) Review of Systems Ten Systems: 10 systems reviewed and negative Constitutional: reports: Reviewed and negative Ears: reports: Reviewed and negative Throat: reports: Reviewed and negative Cardiac: reports: Reviewed and negative Respiratory: reports: Reviewed and negative PD PAST MEDICAL HISTORY - Past Medical History Cardiovascular: Hypertension, Coronary artery disease, [place], Atrial fibrillation Respiratory: Asthma, COPD Neuro: None Endocrine/Autoimmune: None GI: GERD, Hiatal hernia, Diverticulitis : Benign prostate hypertrophy, Nocturia HEENT: Chronic sinusitis, Chronic hearing loss Psych: Depression, Anxiety, Claustrophobia Musculoskeletal: Osteoarthritis, Chronic back pain, Other Derm: Herpes zoster, Other - Past Surgical History Past Surgical History: Yes General: Cholecystectomy, EGD Ortho: Hip replacement, Knee replacement, Other Cardiovascular: CABG, Other HEENT: Other - Present Medications Home Medications: Ambulatory Orders Medication Instructions Recorded Confirmed Lorazepam [Ativan] 1 mg PO TID PRN 01/03/17 08/11/17 Levalbuterol Tartrate [Xopenex Hfa] 2 puffs INH Q4H PRN 06/21/17 08/11/17 traZODone [Desyrel] 300 mg PO QPM 06/21/17 08/11/17 Metoprolol Tartrate 100 mg PO BID 08/01/17 08/11/17 Cephalexin [Keflex] 500 mg PO QID 10 Days #40 capsule 08/05/17 08/11/17 Doxycycline Hyclate 100 mg PO BID 10 Days #20 tablet 08/05/17 08/11/17 Furosemide 20 mg PO DAILY #30 tablet 08/05/17 08/11/17 Ibuprofen [Motrin] 600 mg PO Q6HR tablet 08/05/17 08/11/17 Spironolactone 50 mg PO BID #60 tablet 08/05/17 08/11/17 - Allergies Allergies/Adverse Reactions: Allergies Allergy/AdvReac Type Severity Reaction Status Date / Time albuterol Allergy Severe heart Verified 08/11/17 16:12 palpatation pantoprazole sodium * Allergy Intermediate Nausea Verified 08/11/17 16:12 [From Protonix] Qnevpta-Bid-Qyd Reductase Allergy Intermediate Unknown Verified 08/11/17 16:12 Inhibitor Sulfa (Sulfonamide Allergy Intermediate Rash Verified 08/11/17 16:12 Antibiotics) latex Allergy Mild Itching Verified 08/11/17 16:12 diazepam [From Valium] AdvReac Severe DELIRIUM Verified 08/11/17 16:12 acetaminophen [From [place]] AdvReac Anxiety Verified 08/11/17 16:12 hydrocodone [From [place]] AdvReac Anxiety Verified 08/11/17 16:12 morphine AdvReac Anxiety Verified 08/11/17 16:12 - Social History Does the pt smoke?: No Smoking Status: Never smoker Does the pt drink ETOH?: Yes Does the pt have substance abuse?: No - Family History Family history: reports: Non contributory - Immunizations Immunizations are current?: Yes - POLST Patient has POLST: No POLST Status: Full Code PD ED PE NORMAL - Vitals Vital signs reviewed: Yes - General General: Alert and oriented X 3, No acute distress - HEENT HEENT: PERRL, EOMI - Neck Neck: Supple, no meningeal sign, No bony TTP - Cardiac Cardiac: RRR, No murmur - Respiratory Respiratory: No respiratory distress, Clear bilaterally - Abdomen Abdomen: Normal bowel sounds, Soft, Other (Angry red cellulitis ) - Back Back: No CVA TTP, No spinal TTP - Extremities Extremities: No edema, No calf tenderness / cord - Neuro Neuro: Alert and oriented X 3, Normal speech - Psych Psych: Normal mood, Normal affect Results - Vitals Vitals: Vital Signs - 24 hr 08/11/17 16:09 Temperature 36.3 C L Heart Rate 101 H Respiratory 18 Rate Blood Pressure 126/70 O2 Saturation 96 Oxygen O2 Source [With Activity] Room air O2 Source Room air PD MEDICAL DECISION MAKING - ED course ED course: 72-year-old gentleman with abdominal wall cellulitis, bedside ultrasound shows significant fluid collection at this juncture which will probably need operating room incision and drainage. He is placed on vancomycin. Spoke with Dr. Mcwilliams who will consult and likely taken to the operating room tomorrow. He is placed on vancomycin. Call to Dr. Presley for admission at 6:17 PM. Note made that he has failed outpatient treatment. Departure - Departure Disposition: [facility] DC/[facility] Clinical Impression: Abdominal wall abscess Condition: Stable
[2017-08-11] MEDS ORDERED: LEVALBUTEROL 1.25 MG/0.5 ML NEB INH PRN (18:53)
[2017-08-11] MEDS ORDERED: VANCOMYCIN 1 GM VIAL ONE (18:55)
[2017-08-11] MEDS ORDERED: PANTOPRAZOLE 40 MG TABLET PO SCH (19:00)
[2017-08-11 19:03] LABS: CALCIUM 9.1 mg/dL (8.5-10.3); CREATININE 1.1 mg/dL (0.6-1.2)
[2017-08-11 19:09] LABS: BASOPHILS % (AUTO) 0.7 %; EOSINOPHILS # (AUTO) 0.2 10^3/uL (0.0-0.7); EOSINOPHILS % (AUTO) 2.2 %; LYMPHOCYTES # (AUTO) 1.7 10^3/uL (1.5-3.5); LYMPHOCYTES % (AUTO) 22.1 %; MEAN CORPUSCULAR HEMOGLOBIN 29.9 pg (27.0-31.0); MEAN CORPUSCULAR HGB CONC 32.3 g/dL (32.0-36.0); MEAN CORPUSCULAR VOLUME 92.7 fL (80.0-94.0); MEAN PLATELET VOLUME 6.8 fL (7.4-11.4); MONOCYTES # (AUTO) 0.6 10^3/uL (0.0-1.0); MONOCYTES % (AUTO) 7.8 %; NEUTROPHILS # (AUTO) 5.1 10^3/uL (1.5-6.6); NEUTROPHILS % (AUTO) 67.2 %; PLT - PLATELET COUNT 427 10^3/uL (130-450); RED BLOOD COUNT 4.67 10^6/uL (4.70-6.10); RED CELL DISTRIBUTION WIDTH 13.8 % (12.0-15.0); WHITE BLOOD COUNT 7.6 x10^3/uL (4.8-10.8)
[2017-08-11] MEDS: SPIRONOLACTONE 25 MG TABLET PO SCH (20:50)
[2017-08-11] MEDS: METOPROLOL TARTRATE 50 MG TABLET PO SCH (21:32)
[2017-08-11] MEDS: LORazepam 0.5 MG TABLET PO PRN (21:32)
[2017-08-11] MEDS: traZODone 50 MG TABLET PO SCH (21:32)
[2017-08-11] MEDS: SODIUM CHLORIDE FLUSH 0.9% 10 ML SYRINGE IVP SCH (21:33)
[2017-08-11] MEDS: oxyCOD/ACETAMIN 5 MG/325 MG TABLET PO PRN (22:42)
[2017-08-11] MEDS: DOXYCYCLINE INJ 100 MG in SODIUM CHLORIDE 0.9% MINIBAG 100 ML IV SCH (22:43)
--- NOTE | 2017-08-11 22:53 | HISTORY & PHYSICAL EXAMINATION ---
Chief Complaint - Chief Complaint Chief Complaint: Abdominal abscess History of Present Illness - Admitted From Admitted From:: Home - History of Present Illness HPI Comment/Other: Mr. Dominic Viveros is a 72-year-old male with a history of abdominal pain that brought him into the [facility] last week. He had a hematoma which he says he sustained following aggressive coughing during a bout of bronchitis and the area became inflamed and he was diagnosed with cellulitis and placed on IV antibiotics. He was discharged on August 03, 2017. The area has continued to remain tender and warm and he came back to the emergency room when there was new drainage. This was cultured and found to be MRSA positive and he was redirected to come back for further treatment. History - Past Medical History Cardiovascular: reports: Hypertension, Coronary artery disease, [place], Atrial fibrillation Respiratory: reports: Asthma, COPD Neuro: reports: None Endocrine/Autoimmune: reports: None GI: reports: GERD, Hiatal hernia, Diverticulitis : reports: Benign prostate hypertrophy, Nocturia HEENT: reports: Chronic sinusitis, Chronic hearing loss Psych: reports: Depression, Anxiety, Claustrophobia Musculoskeletal: reports: Osteoarthritis, Chronic back pain, Other Derm: reports: Herpes zoster, Other MRSA Hx?: Yes - Past Surgical History General: reports: Cholecystectomy, EGD Ortho: reports: Hip replacement, Knee replacement, Other Cardiovascular: reports: CABG, Other HEENT: reports: Other - Family & Social History Family History: Mother: , Cancer, Father: , Cancer, Brother: Alive and Well Living arrangement: At home Living Situation: With spouse/s.o. Social History Notes: Patient was born in [facility] and moved to [place] [facility] in [place]. The patient went to [employer] for his undergraduate degree and received his PhD in [employer]. 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 The patient also served in the [employer]. Patient lives in [place], [place] with his . The patient smoked about half a pack a day for 20 years. He drinks socially states he has a beer here and there but is not a heavy drinker. The patient denies any illicit drug use. - Substance History Use: Uses substance without health or social issues: NONE Dependence: Experiences withdrawal or developed tolerances: Anxiolytic, Opioid - POLST Patient has POLST: No POLST Status: Full Code Meds/Allgy - Home Medications Home Medications: Ambulatory Orders Medication Instructions Recorded Confirmed Lorazepam [Ativan] 1 mg PO TID PRN 01/03/17 08/11/17 Levalbuterol Tartrate [Xopenex Hfa] 2 puffs INH Q4H PRN 06/21/17 08/11/17 traZODone [Desyrel] 300 mg PO QPM 06/21/17 08/11/17 Metoprolol Tartrate 100 mg PO BID 08/01/17 08/11/17 Cephalexin [Keflex] 500 mg PO QID 10 Days #40 capsule 08/05/17 08/11/17 Doxycycline Hyclate 100 mg PO BID 10 Days #20 tablet 08/05/17 08/11/17 Furosemide 20 mg PO DAILY #30 tablet 08/05/17 08/11/17 Ibuprofen [Motrin] 600 mg PO Q6HR tablet 08/05/17 08/11/17 Spironolactone 50 mg PO BID #60 tablet 08/05/17 08/11/17 - Allergies Allergies/Adverse Reactions: Allergies Allergy/AdvReac Type Severity Reaction Status Date / Time albuterol Allergy Severe heart Verified 08/11/17 16:12 palpatation pantoprazole sodium * Allergy Intermediate Nausea Verified 08/11/17 16:12 [From Protonix] Yervvcp-Fpt-Het Reductase Allergy Intermediate Unknown Verified 08/11/17 16:12 Inhibitor Sulfa (Sulfonamide Allergy Intermediate Rash Verified 08/11/17 16:12 Antibiotics) latex Allergy Mild Itching Verified 08/11/17 16:12 diazepam [From Valium] AdvReac Severe DELIRIUM Verified 08/11/17 16:12 acetaminophen [From [place]] AdvReac Anxiety Verified 08/11/17 16:12 hydrocodone [From [place]] AdvReac Anxiety Verified 08/11/17 16:12 morphine AdvReac Anxiety Verified 08/11/17 16:12 Review of Systems - Constitutional Constitutional: reports: Fever, Chills, Weakness. denies: Fatigue - Eyes Eyes: denies: Pain, Irritation, Amaurosis - Ears, Nose & Throat Ears, Nose & Throat: denies: Ear pain, Hearing loss, Tinnitus, Vertigo, Nasal discharge - Cardiovascular Cariovascular: denies: Irregular heart rate, Palpitations, Chest pain, Edema - Respiratory Respiratory: denies: Cough, Sputum production, Wheezing, Snoring, Hemoptysis - Gastrointestinal Gastrointestinal: reports: Abdominal pain. denies: Abdominal distention, Constipation, Diarrhea, Change in bowel habits, Rectal bleeding - Genitourinary Genitourinary: denies: Dysuria, Frequency, Urgency, Hematuria - Musculoskeletal Musculoskeletal: denies: Muscle pain, Back pain, Muscle aches, Stiffness - Integumentary Integumentary: reports: Lesions. denies: Rash, Pruritis, Dryness - Neurological Neurological: reports: General weakness. denies: Focal weakness, Headache, Dizziness - Psychiatric Psychiatric: denies: Depression, Anxiety, Suicidal, Hallucinations - Endocrine Endocrine: denies: Polyuria, Polydypsia, Polyphagia - Hematologic/Lymphatic Hematologic/Lymphatic: denies: Anemia, Bruising, Petechiae - All Other Systems All Other Systems: reports: Reviewed and negative Exam - Vital Signs Reviewed Vital Signs: Yes Vital Signs: Vital Signs x48h Temp Pulse Pulse Resp BP BP Pulse Ox 08/11/17 21:32 133/77 H 08/11/17 19:43 91 17 155/92 H 98 08/11/17 19:28 36.5 C 87 20 145/86 H 97 - Physical Exam General Appearance: positive: No acute distress, Alert Eyes Bilateral: positive: Normal inspection, PERRL, EOMI ENT: positive: ENT inspection nml, Pharynx nml, No signs of dehydration. negative: Purulent nasal drainage Neck: positive: Nml inspection, Thyroid nml, No JVD, Trachea midline, Thyromegaly Respiratory: positive: Chest non-tender, No respiratory distress, Breath sounds nml. negative: Wheezes, Rales, Rhonchi Cardiovascular: positive: Regular rate & rhythm, No murmur, No gallop. negative : Systolic murmur, Diastolic murmur Peripheral Pulses: positive: 1+ Abdomen: positive: Non-tender, No organomegaly, Nml bowel sounds, No distention. negative: Guarding, Rebound Back: positive: Nml inspection. negative: CVA tenderness (R), CVA tenderness (L ) Skin: positive: Color nml, Other (Well demarcated cellulitis to left lower abdomen with scabbed over area in the middle) Extremities: positive: Non-tender, Full ROM, Nml appearance, No pedal edema Neurologic/Psychiatric: positive: Oriented x3, CN's nml (2-12), Motor nml, Sensation nml, Mood/affect nml Conclusion/Plan - Problem List (1) Abdominal wall abscess Conclusion/Plan: The patient will undergo an incision and drainage tomorrow with general surgery. We will obtain new cultures at that time and treat the patient with the appropriate antibiotics. (2) Cellulitis Conclusion/Plan: We will continue with the current antibiotic regimen and obtain new cultures tomorrow when the patient undergoes an incision and drainage. Qualifiers: Site of cellulitis: trunk Site of cellulitis of trunk: abdominal wall Qualified Code(s): L03.311 - Cellulitis of abdominal wall - Lab Results Lab results reviewed: Yes Fish Bones: 08/11/17 18:35 08/11/17 18:35 - Diagnostic Imaging Results Diagnostic Imaging Results: positive: Final report reviewed Diagnostic Imaging Results Comments: EXAM: ABDOMEN ULTRASOUND LIMITED EXAM DATE: 08/08/2017 09:52 AM. CLINICAL HISTORY: Draining abd wall cellulitis no palp abscess. COMPARISON: None. TECHNIQUE: Real-time scanning was performed with static images obtained. Region of interest: Left lower quadrant in the region of the clinical abnormality. FINDINGS: The region of the clinical abnormality at the left lower quadrant, there are a few irregular subcutaneous collections of fluid measuring up to 1.9 x 0.5 x 2.0 cm and 1.8 x 0.6 x 3.6 cm, respectively. There is regional subcutaneous edema. IMPRESSION: Left lower quadrant subcutaneous fluid collections as noted above. The wound cultures were positive for methicillin-resistant staph aureus which is sensitive to doxycycline and vancomycin. Core Measures - Anticipated LOS I expect patient to be DC'd or transferred within 96 hours.: Yes - DVT/VTE - Prophylaxis VTE/DVT Device ordered at admit?: Yes
[2017-08-12] MEDS: oxyCOD/ACETAMIN 5 MG/325 MG TABLET PO PRN ×5 (02:30→18:29)
[2017-08-12] MEDS: LORazepam 0.5 MG TABLET PO PRN ×3 (06:39→22:51)
[2017-08-12] MEDS: SODIUM CHLORIDE FLUSH 0.9% 10 ML SYRINGE IVP SCH ×3 (06:40→22:50)
[2017-08-12] MEDS ORDERED: SODIUM CHLORIDE 0.9% 250 ML IV ONE (07:47)
[2017-08-12] MEDS ORDERED: LACTATED RINGERS 1,000 ML IV ONE (08:01)
[2017-08-12] MEDS ORDERED: LIDOCAINE 1%-EPI 1:100000 20 ML MDV SUBQ ONE (08:02)
[2017-08-12] MEDS ORDERED: LIDOCAINE 1% 50 ML MDV SUBQ ONE (08:15)
[2017-08-12] MEDS ORDERED: PROPOFOL 200 MG/20 ML VIAL IVP ONE (08:20)
[2017-08-12] MEDS ORDERED: LIDOCAINE-MPF 2% 5 ML VIAL IM ONE (08:20)
[2017-08-12] MEDS ORDERED: fentaNYL 100 MCG/2 ML VIAL IVP ONE (08:20)
[2017-08-12] MEDS ORDERED: MIDAZOLAM 2 MG/2 ML VIAL IVP ONE (08:20)
--- NOTE | 2017-08-12 09:11 | CONSULTATION NOTE ---
DATE OF SERVICE: 08/12/2017 Physician: Luz Mcwilliams MD REASON FOR CONSULTATION: Abdominal wall abscess. REQUESTING PROVIDER: Mina Ferraro MD HISTORY OF PRESENT ILLNESS: This is a 72-year-old gentleman who presented to the emergency department a few weeks ago for a left abdominal wall hematoma that he sustained after a coughing episode. He developed cellulitis and was discharged home on antibiotics, but re-presents today for increasing cellulitis. Cultures were performed, which demonstrated MRSA positivity. Additionally, a bedside ultrasound was performed, which demonstrates an abdominal wall fluid collection. The patient was subsequently admitted to the medical service and a surgical consultation obtained. PAST MEDICAL HISTORY: Significant for hypertension, coronary artery disease, history of an PA, atrial fibrillation, GERD, diverticulitis, BPH, nocturia, chronic sinusitis, chronic hearing loss, depression, anxiety, claustrophobia, osteoarthritis, chronic back pain. PAST SURGICAL HISTORY: Cholecystectomy, knee replacement, hip replacement, CABG. HOME MEDICATIONS 1. Ativan 1 mg p.o. 3 times daily. 2. Xopenex 2 puffs q.4 as needed. 3. Desyrel 300 mg daily. 4. Metoprolol 100 mg twice daily. 5. Keflex 500 mg 4 times daily. 6. Doxycycline 100 mg p.o. twice daily. 7. Furosemide 20 mg p.o. daily. 8. Motrin 600 mg p.o. q.6 hours. 9. Spironolactone 50 mg p.o. twice daily. ALLERGIES TO MEDICATIONS 1. ALBUTEROL. 2. PROTONIX. 3. STATINS. 4. SULFA. 5. LATEX. 6. DIAZEPAM. 7. ACETAMINOPHEN. 8. HYDROCODONE. 9. MORPHINE. PHYSICAL EXAMINATION VITAL SIGNS: Temperature is 36.3, blood pressure 124/71, and a heart rate of 71 , respiratory rate is 18, O2 saturation is 95% on room air. GENERAL: The patient is awake, alert, oriented x3, in no acute distress. He is of average build. CARDIOVASCULAR: Regular rate and rhythm. CHEST: Clear to auscultation bilaterally without rhonchi or wheezing. ABDOMEN: Soft and nondistended. There is extensive cellulitis over the lateral left abdominal wall, expanding over 15 cm with a central area of skin excoriation. EXTREMITIES: Demonstrate trace edema. LABORATORY VALUES: White count is 7.6, hemoglobin 14, hematocrit 43.3, platelets 427. Sodium 135, potassium 3.9, chloride 98, bicarbonate 27, BUN 21, creatinine 1.1. ASSESSMENT: This is a 72-year-old male with an abdominal wall abscess. PLAN: The patient will be taken to the operating room for surgical incision and drainage of the abdominal wall abscess. The procedure was explained to the patient in detail including potential risks involved including but not limited to bleeding and poor wound healing. We will proceed with the procedure. TD: 08/12/2017 09:07 RICKY
[2017-08-12] MEDS: LEVALBUTEROL 1.25 MG/3 ML NEB INH PRN ×2 (09:40→17:53)
[2017-08-12] MEDS: DOXYCYCLINE INJ 100 MG in SODIUM CHLORIDE 0.9% MINIBAG 100 ML IV SCH (10:30)
[2017-08-12] MEDS: SPIRONOLACTONE 25 MG TABLET PO SCH ×2 (10:31→22:50)
[2017-08-12] MEDS: FUROSEMIDE 20 MG TABLET PO SCH (10:31)
[2017-08-12] MEDS: METOPROLOL TARTRATE 50 MG TABLET PO SCH ×2 (10:32→22:49)
[2017-08-12] MEDS: POLYETHYLENE GLYCOL 3350 17 GM PACKET PO SCH (10:33)
[2017-08-12] MEDS: SODIUM CHLORIDE FLUSH 0.9% 10 ML SYRINGE IVP PRN ×2 (10:33→23:01)
--- NOTE | 2017-08-12 11:54 | PROVIDER PROGRESS NOTE ---
Subjective - Prog Note Date Prog Note Date: 08/12/17 Prog Note Time: 11:53 - Subjective Pt reports feeling: Improved Subjective: complains about not getting enough pain medication and wants me to give 2 tablets of Percocet rather than only one. He denies SOB, chest pain, N/V or a new cough. He does not mention his post-procedure pain located on left abdomen. Current Medications - Current Medications Current Medications: Active Medications Acetaminophen (Tylenol) 1,000 mg PO Q6HR PRN PRN Reason: Pain or Fever > 38C (100.4F) Duloxetine HCl (Cymbalta) 30 mg PO DAILY [facility] Last Admin: 08/12/17 18:30 Dose: 30 mg Furosemide (Lasix) 20 mg PO DAILY [facility] Last Admin: 08/12/17 10:31 Dose: 20 mg Vancomycin/Sodium Chloride (Vanco/Sod Chloride 0.9%) 1.5 gm in 500 mls @ 325 mls/hr IV Q12H [facility] Last Infusion: 08/12/17 14:52 Dose: Infused Levalbuterol HCl (Xopenex) 1.25 mg INH RTQ4H PRN PRN Reason: Wheezing Last Admin: 08/12/17 17:53 Dose: 1.25 mg Lorazepam (Ativan) 1 mg PO TID PRN PRN Reason: Anxiety Last Admin: 08/12/17 13:19 Dose: 1 mg Metoprolol Tartrate (Lopressor) 100 mg PO BID [facility] Last Admin: 08/12/17 10:32 Dose: 100 mg Oxycodone/Acetaminophen (Percocet 5 Mg/325 Mg) 1 tab PO Q6HR PRN PRN Reason: PAIN Last Admin: 08/12/17 18:29 Dose: 1 tab Polyethylene Glycol (Miralax) 17 gm PO DAILY [facility] Last Admin: 08/12/17 10:33 Dose: Not Given Quetiapine Fumarate (Seroquel) 50 mg PO QPM [facility] Sodium Chloride (Normal Saline Flush 0.9%) 10 ml IVP PRN PRN PRN Reason: NEEDED PER PROVIDER ORDERS Last Admin: 08/12/17 10:33 Dose: 10 ml Sodium Chloride (Normal Saline Flush 0.9%) 10 ml IVP Q8HR [facility] Last Admin: 08/12/17 14:04 Dose: 10 ml Spironolactone (Aldactone) 50 mg PO BID [facility] Last Admin: 08/12/17 10:31 Dose: 50 mg Trazodone HCl (Desyrel) 300 mg PO QPM [facility] Last Admin: 08/11/17 21:32 Dose: 300 mg Lorazepam [Ativan] 1 mg PO TID PRN 01/03/17 Levalbuterol Tartrate [Xopenex Hfa] 2 puffs INH Q4H PRN 06/21/17 traZODone [Desyrel] 300 mg PO QPM 06/21/17 Metoprolol Tartrate 100 mg PO BID 08/01/17 Objective - Vital Signs/Intake & Output Reviewed Vital Signs: Yes Vital Signs: Vital Signs x48h Temp Pulse Pulse Resp BP Pulse Ox 08/12/17 11:36 36.4 C L 74 18 141/87 H 98 08/12/17 09:40 67 14 08/12/17 09:36 36.3 C L 68 18 155/80 H 96 08/12/17 09:06 36.2 C L 73 16 130/68 98 08/12/17 08:40 97 08/12/17 08:35 97 08/12/17 08:30 97 08/12/17 08:25 98 Intake & Output: Intake & Output 08/09/17 08/10/17 08/11/17 08/12/17 23:59 23:59 23:59 23:59 Intake Total 800.000 350 Balance 800.000 350 - Objective General Appearance: positive: Alert, Moderate distress, Anxious, Lethargic Eyes Bilateral: positive: Normal inspection, PERRL Eyes: OU Conjunctivae pale, OU Scleral icterus ENT: positive: ENT inspection nml, Pharynx nml, No signs of dehydration Neck: positive: Nml inspection, Thyroid nml, No JVD Respiratory: positive: Chest non-tender, No respiratory distress, Breath sounds nml, Wheezes, Other (mild crackles.) Cardiovascular: positive: No gallop, Irregularly irregular, Systolic murmur, Decreased pulse(s) Peripheral Pulses: 1+ Radial (R), 1+ Radial (L) Abdomen: positive: Nml bowel sounds, Tenderness, Guarding, Hepatomegaly Back: positive: Nml inspection Skin: positive: Color nml, No rash, Warm, Dry Extremities: positive: Non-tender, Full ROM, Nml appearance, No pedal edema Neurologic/Psychiatric: positive: Oriented x3, CN's nml (2-12), Motor nml, Sensation nml, Depressed mood/affect, Other (grandosity train of thoughts, reverts back to his PhD quite often at inappropriate times, such as mid- sentence.) Reflexes: Bicep (R): 3+, Bicep (L): 3+ - Lab Results Fish Bones: 08/11/17 18:35 08/11/17 18:35 Other Labs: Lab Results x24hrs 08/11/17 08/11/17 Range/Units 18:35 18:35 WBC 7.6 (4.8-10.8) x10^3/uL RBC 4.67 L (4.70-6.10) 10^6/uL Hgb 14.0 (14.0-18.0) g/dL Hct 43.3 (42.0-52.0) % MCV 92.7 (80.0-94.0) fL MCH 29.9 (27.0-31.0) pg MCHC 32.3 (32.0-36.0) g/dL RDW 13.8 (12.0-15.0) % Plt Count 427 (130-450) 10^3/uL MPV 6.8 L (7.4-11.4) fL Neut # 5.1 (1.5-6.6) 10^3/uL Lymph # 1.7 (1.5-3.5) 10^3/uL [place] # 0.6 (0.0-1.0) 10^3/uL Eos # 0.2 (0.0-0.7) 10^3/uL Baso # 0.0 (0.0-0.1) 10^3/uL Absolute Nucleated RBC 0.00 x10^3/uL Nucleated RBC % 0.0 /100WBC Sodium 135 (135-145) mmol/L Potassium 3.9 (3.5-5.0) mmol/L Chloride 98 L (101-111) mmol/L Carbon Dioxide 27 (21-32) mmol/L Anion Gap 10.0 (6-13) BUN 21 H (6-20) mg/dL Creatinine 1.1 (0.6-1.2) mg/dL Estimated GFR (MDRD) 66 L (>89) Glucose 92 (70-100) mg/dL Calcium 9.1 (8.5-10.3) mg/dL - Diagnostic Imaging Diagnostic Imaging Results: positive: Prelim report reviewed, Final report reviewed Assessment/Plan - Problem List (1) Abdominal wall abscess Impression: This has been ongoing since his last admission (from 07/31-08/05), but patient apparently "soaked in a tub", which softened the skin enough to expose a lesion , and allowed pathogens to enter the skin. I was personally called to the ED on 08/08/17; when the patient came back with a "worsening case" of his cellulitis. At which time, I recommended to continue antibiotics and STOP soaking in a tub as this will only cause a secondary infection. A culture was taken which grew out MRSA on 08/08/17. On this admission, ED MD completed an ultrasound and found a fluid collection, so patient was admitted for a General surgery consult. Luz Mcwilliams MD completed an I & D in hopes of draining this abscess, with no pus pockets appreciated. A minimal incision remains with packing and should be changed daily by nursing. Plan: Patient continues on doxycycline IV that was changed to Vancomycin while in the hospital, and likely will be changed back to doxycycline upon discharge which almost occurred this evening when patient was denied additional narcotics. (2) Cellulitis Impression: This is nearly resolved, but patient is at risk for a secondary infection from latest surgical procedure. Anticipate quite an easy time of teaching daily dressing changes since the patient frequently reports having a "PhD", and should understand basic sterile techniques. Plan: Daily dressing changes and plan for nursing to educate patient on sterile dressing techniques in preparation for home. Qualifiers: Site of cellulitis: trunk Site of cellulitis of trunk: abdominal wall Qualified Code(s): L03.311 - Cellulitis of abdominal wall (3) MRSA (methicillin resistant staph aureus) culture positive Impression: Wound cultures obtained from ED visit on 08/08/17 grew out MRSA with sensitivities to Vancomycin and others, see lab tab. Plan: Continue current IV antibiotics that can be changed to PO at any moment in the event of a quick AMA threat, verses a smooth transition to home with daily dressing changes using sterile techniques. (4) Opioid abuse Impression: A new 2017 [facility] Query report was obtained upon admission. Patient has been prescribed a total of 2,582 pills consisting of diazepam, acetaminophen -cod #3, lorazepam, hydrocodone-acetaminophen,oxycodone-acetaminophen, and codeine-guaifen. Patient denies dependence and claims his " is an alcoholic ". Plan: Pain clinic order pending. During last admission, patient's demanded that her be prescribed narcotics so that he does not "withdrawal". To prevent withdrawal, patient will be titrated down on the Percocet that was prescribed during his hospital stay to prepare for discharge. Today adjustments were made from Percocet every 4 hours to every 6 hours PRN. (5) Pulmonary hypertension Impression: This was noted on patient's last echocardiogram and is likely a consequence of his untreated COPD/CABG and CAD. Plan: Continue medical management with Spironolactone. (6) Systolic congestive heart failure with reduced left ventricular function, NYHA class 3 Impression: This was noted on echocardiogram on 08/02/17. Patient has increased abdominal girth when this is not managed. Plan: Continue medical management.
[2017-08-12] MEDS ORDERED: VANCOMYCIN PER PHARMACY 1 GM in SODIUM CHLORIDE 0.9% 250 ML IV SCH (12:00)
[2017-08-12] MEDS: VANCOMYCIN 1.5 GM/NS 500 ML 1.5 GM/500 ML BAG IV SCH (12:46)
[2017-08-12] MEDS ORDERED: ZINC OXIDE 20% OINT 28.35 GM TUBE TOP ONE (13:08)
[2017-08-12] MEDS ORDERED: ACETAMINOPHEN 500 MG TABLET PO PRN (18:05)
[2017-08-12] MEDS: DULoxetine 30 MG CAPSULE PO SCH (18:30)
[2017-08-12] MEDS ORDERED: QUEtiapine 100 MG TABLET PO SCH (21:00)
[2017-08-12] MEDS ORDERED: HYDROmorphone 1 MG/ML SYRINGE IVP SCH (22:26)
--- NOTE | 2017-08-12 22:36 | MISCELLANEOUS PROVIDER NOTE ---
Miscellaneous Provider Note - - Note: Called by nurse and explained that patient had pulled off dressing and had taken 1/2 of packing out of wound with the result of significant bleeding. When I arrived, patient stated that he did not know what had happened. Nurse was holding pressure. I removed the dressing entirely as well as the pack and repacked the wound with an entire Kerlix. Patient tolerated well but had some pain and I have ordered a one time dose of Dilaudid for this. Additionally, I noticed that the patient did NOT have an IV (in order to give the Dilaudid). Again the patient states that he did not know how that happened. I explained to the patient that, whether intentional or not intentional, should this happen again, I would need to retrain him in order to protect the therapeutic environment. The patient vocalized an understanding. In order to help ensure this does not happen again, I have ordered an abdominal binder to be placed over the wound to make it much harder for him to remove the dressing and packing. This should have the additional benefit of applying some pressure to the wound.
[2017-08-12] MEDS: traZODone 50 MG TABLET PO SCH (22:49)
[2017-08-13] MEDS: oxyCOD/ACETAMIN 5 MG/325 MG TABLET PO PRN ×2 (00:52→06:29)
[2017-08-13] MEDS: VANCOMYCIN 1.5 GM/NS 500 ML 1.5 GM/500 ML BAG IV SCH (00:54)
[2017-08-13] MEDS: SODIUM CHLORIDE FLUSH 0.9% 10 ML SYRINGE IVP SCH (00:57)
[2017-08-13] MEDS: SODIUM CHLORIDE FLUSH 0.9% 10 ML SYRINGE IVP PRN (02:51)
--- NOTE | 2017-08-13 07:10 | Discharge Plan ---
Discharge Plan Disposition: 01 Home, Self Care Condition: Good Prescriptions: Doxycycline Hyclate 100 mg PO BID 28 Days #56 capsule Oxycodone HCl/Acetaminophen [Oxycodone-Acetaminophen 5-325] 1 each PO PRN PRN # 20 tablet PRN Reason: Pain Diet: Regular Activity Restrictions: No Restrictions Shower Restrictions: No Driving Restrictions: No Weight Bearing: Full Weight Additional Instructions or Follow Up instructions: Please see your PCP as a follow up to this hospital stay. Take the whole course of antibiotics, 28-days. Change dressing daily, or as needed. I have ordered home health care for daily dressing changes. Follow-Up Care: Home Health - RN (Home health care for daily wet-to-dry dressing changed to left abdomen-post op I & D.), [facility] [place]/Ostomy No Smoking: If you smoke, Please STOP! Call for help. Follow-up with: OLIVERIO BARTH [Primary Care Provider] -
--- NOTE | 2017-08-13 07:11 | DISCHARGE SUMMARY ---
Discharge Summary Admit Date: 08/11/17 Discharge Date: 08/13/17 Discharging Provider: [facility] Primary Care Provider: Radha Garcia Code Status: Attempt Resuscitation Condition at Discharge: Good Discharge Disposition: Home, Self Care - DIAGNOSES Admission Diagnoses: Cutaneous abscess of abdominal wall (L02.211) Cellulitis, unspecified (L03.90) Discharge Diagnoses with Status of Each Condition: Abdominal wall abscess (L02.211) ongoing treatment, now surgical incision site of 4cm on LLQ abdomen. Daily dressing with wet-to-dry sterile gauze. Cellulitis (L03.90) resolving, likelihood of secondary infection is high due to recent surgery. MRSA (methicillin resistant staph aureus) culture positive (Z22.322) chronic, stable and being treated. Fluid from wound obtained on 08/12/17 had NO growth. Narcotic abuse (F11.10) chronic, controlled. Pulmonary hypertension (I27.20) chronic, medical management. Systolic congestive heart failure with reduced left ventricular function, NYHA class 2 (I50.20) chronic, medical management. - HPI History of Present Illness: Dominic Viveros is a 72-year-old male with a history of opioid abuse, ETOH abuse , HTN, cardiac ablation, CHF, pulmonary hypertension, right shoulder arthritis, hiatal hernia, and narcotic dependence, that was brought into the [facility] last week. He had a hematoma which he says he sustained following aggressive coughing during a bout of bronchitis. During the most recent admission, the patient was diagnosed with left abdominal cellulitis and placed on IV antibiotics, and transitioned to PO. He was discharged on August 03, 2017. The area has continued to remain tender and warm and he came back to the emergency room when there was a small open area that had been swabbed and sent to the lab, which grew out MRSA. For this admission, patient came in due to the cellulitis not being resolved. ER completed an ultrasound that showed a pus pocket that could be drained by general surgery, so patient was admitted for anticipation of I&D of left abdomen in the AM. We will put patient back on IV antibiotics and wait for results of new surgical sample. - CONSULTS | PROCEDURES Consultations: General surgery, MAC wounds, home health RN. Procedures: I & D of left abdomen. 4cm incision, no purulent fluid noted. - HOSPITAL COURSE Hospital Course: The following problems/diagnoses were prevalent during this hospital stay: Abdominal wall abscess: This has been ongoing since his last admission (from -08/05), but patient apparently "soaked in a tub", which softened the skin enough to expose a lesion, and allowed pathogens to enter the skin. I was personally called to the ED on 08/08/17; when the patient came back with a "worsening case" of his cellulitis. At which time, I recommended to continue antibiotics and STOP soaking in a tub as this will only cause a secondary infection. A culture was taken which grew out MRSA on 08/08/17. On this admission, ED MD completed an ultrasound and found a fluid collection, so patient was admitted for a General surgery consult. Luz Mcwilliams MD completed an I & D in hopes of draining this abscess, with no pus pockets appreciated. A minimal incision remains (4 cm per operative notes) with packing and should be changed daily using sterile wet-to-dry technique by nursing. Patient continues on doxycycline IV that was changed to Vancomycin while in the hospital, and likely will be changed back to doxycycline upon discharge which almost occurred on post-op day #1, when patient was denied additional narcotics. General surgery was called in after hours due to patient becoming combative, confused and he reportedly pulled out all of his surgical dressing, causing there to be "blood everywhere", pulled out his IV, and claimed he was going home. IV dilaudid was given and the rest of the evening was uneventful. Cellulitis: This is nearly resolved, but patient is at risk for a secondary infection from latest surgical procedure. Anticipate quite an easy time of teaching daily dressing changes since the patient frequently reports having a "PhD", and should understand basic sterile techniques. Although in light of patient's signs of inability to cope, he would do best with daily wound clinic dressing changes verses home health care for daily dressings. MRSA: Wound cultures obtained from ED visit on 08/08/17 grew out MRSA with sensitivities to Vancomycin, doxycycline, and other antibiotic choices. Continue current IV antibiotics that can be changed to PO on discharge with a smooth transition to home with daily dressing changes using sterile techniques. Opioid abuse: A new 2017 [place] [employer] report was obtained upon admission. Patient has been prescribed a total of 2,582 pills consisting of diazepam, acetaminophen-cod #3, lorazepam, hydrocodone-acetaminophen,oxycodone- acetaminophen, and codeine-guaifen. Patient denies dependence and claims his " is an alcoholic". Pain clinic order was created during this stay, likely this will be sometime after patient is out-patient. During last admission, patient's demanded that her be prescribed narcotics so that he does not "withdrawal". To prevent withdrawal, patient will be titrated down on the Percocet that was prescribed during his hospital stay to prepare for discharge. Adjustments were made from Percocet every 4 hours to every 6 hours PRN. Patient was given a generous prescription of #20 Percocet upon discharge due to complexity of new surgical wound and the anticipated pain this may cause. Pulmonary hypertension: This was noted on patient's last echocardiogram and is likely a consequence of his untreated COPD/CABG and CAD. Continue medical management with Spironolactone and lasix. Systolic congestive heart failure with reduced LV function, NYHA class 2: This was noted on echocardiogram on 08/02/17. Patient has increased abdominal girth when this is not managed. Continue medical management. Disposition: Patient was discharged home and prescribed PO antibiotics for a total of 28 days due to the new surgical site and the anticipated length of time this may take to heal. Also, consulted MAC wound clinic, and home health RN for daily dressing changes. Patient has a scheduled appointment on Tuesday with PCP. Patient was encouraged to come back to the ED if any problems arise with his wound. - ALLERGIES Allergies/Adverse Reactions: Allergies Allergy/AdvReac Type Severity Reaction Status Date / Time albuterol Allergy Severe heart Verified 08/11/17 16:12 palpatation pantoprazole sodium * Allergy Intermediate Nausea Verified 08/11/17 16:12 [From Protonix] [id number]-[id number] Reductase Allergy Intermediate Unknown Verified 08/11/17 16:12 Inhibitor Sulfa (Sulfonamide Allergy Intermediate Rash Verified 08/11/17 16:12 Antibiotics) latex Allergy Mild Itching Verified 08/11/17 16:12 diazepam [From Valium] AdvReac Severe DELIRIUM Verified 08/11/17 16:12 hydrocodone [From [place]] AdvReac Anxiety Verified 08/11/17 16:12 morphine AdvReac Anxiety Verified 08/11/17 16:12 - MEDICATIONS Home Medications: Ambulatory Orders Medication Instructions Recorded Confirmed Lorazepam [Ativan] 1 mg PO TID PRN 01/03/17 08/11/17 Levalbuterol Tartrate [Xopenex Hfa] 2 puffs INH Q4H PRN 06/21/17 08/11/17 traZODone [Desyrel] 300 mg PO QPM 06/21/17 08/11/17 Metoprolol Tartrate 100 mg PO BID 08/01/17 08/11/17 Furosemide 20 mg PO DAILY #30 tablet 08/05/17 08/11/17 Ibuprofen [Motrin] 600 mg PO Q6HR tablet 08/05/17 08/11/17 Spironolactone 50 mg PO BID #60 tablet 08/05/17 08/11/17 Doxycycline Hyclate 100 mg PO BID 28 Days #56 capsule 08/13/17 Oxycodone HCl/Acetaminophen 1 each PO PRN PRN #20 tablet 08/13/17 [Oxycodone-Acetaminophen 5-325] oxyCODONE/ACET 5/325 [Percocet 5 1 tab PO Q6HR PRN #20 tablet 08/13/17 mg/325 mg] - PHYSICAL EXAM AT DISCHARGE General Appearance: positive: No acute distress, Alert Eyes Bilateral: positive: Normal inspection ENT: positive: ENT inspection nml, Pharynx nml, No signs of dehydration Neck: positive: Nml inspection, Thyroid nml, No JVD, Trachea midline Respiratory: positive: Chest non-tender, No respiratory distress, Breath sounds nml Cardiovascular: positive: No gallop, Irregularly irregular, Systolic murmur, Decreased pulse(s) Peripheral Pulses: positive: 1+ Abdomen: positive: Non-tender, Nml bowel sounds, Hepatomegaly, Other (rounded, soft. Left abdomen with wet-to-dry packing. Tender and warm. +MRSA.) Back: positive: Nml inspection Skin: positive: Color nml, No rash, Warm, Dry, Other (Post op. General surgery I&D of left abdomen.) Extremities: positive: Non-tender, Pedal edema (trace) Neurologic/Psychiatric: positive: Oriented x3, CN's nml (2-12), Motor nml, Sensation nml, Depressed mood/affect, Other (STM lose) Reflexes: Bicep (R): 3+, Bicep (L): 3+ - LABS Result Diagrams: 08/11/17 18:35 08/11/17 18:35 - FOLLOW UP Follow Up: Disposition: Home, Self Care Condition: Good Prescriptions: Doxycycline Hyclate 100 mg PO BID 28 Days #56 capsule Oxycodone HCl/Acetaminophen [Oxycodone-Acetaminophen 5-325] 1 each PO PRN, #20 tablet. PRN Reason: Pain Diet: Regular Activity Restrictions: No Restrictions Shower Restrictions: No Driving Restrictions: No Weight Bearing: Full Weight Additional Instructions or Follow Up instructions: Please see your PCP as a follow up to this hospital stay. Take the whole course of antibiotics, 28-days. Change dressing daily, or as needed. I have ordered home health care for daily dressing changes. Follow-Up Care: Home Health - RN (Home health care for daily wet-to-dry dressing changed to left abdomen-post op I & D.), [facility] – [place] [facility] - Wound/Ostomy - TIME SPENT Time Spent in Discharge (Minutes): 50
[2017-08-13] MEDS: POLYETHYLENE GLYCOL 3350 17 GM PACKET PO SCH (07:58)
[2017-08-13] MEDS ORDERED: DOXYCYCLINE 100 MG TABLET PO SCH (08:00)
[2017-08-13 08:01] VITALS: BP 117/62
[2017-08-13] MEDS: FUROSEMIDE 20 MG TABLET PO SCH (08:54)
[2017-08-13] MEDS: DULoxetine 30 MG CAPSULE PO SCH (08:54)
[2017-08-13] MEDS: LORazepam 0.5 MG TABLET PO PRN (08:54)
[2017-08-13] MEDS: METOPROLOL TARTRATE 50 MG TABLET PO SCH (08:54)
[2017-08-13] MEDS: SPIRONOLACTONE 25 MG TABLET PO SCH (08:54)
--- NOTE | 2017-08-13 13:00 | OPERATIVE REPORT ---
Operative Report - General Admit Date: 08/11/17 Procedure Date: 08/12/17 Pre-Op Diagnosis: abdominal wall cellulitis Procedure Performed: Incision and drainage of abdominal wall fluid collection Post Op Diagnosis: abdominal wall cellulitis - Procedure Note Primary Surgeon: Poppy - Other Other Information/Narrative: After obtaining informed consent from the patient he was brought into the operating room and positioned in the supine position. He was administered sedation. He was prepped and draped in the usual standard fashion and a timeout was taken according to protocol. 50 cc of local anesthetic was administered. A 4 cm transverse incision was made overlying the mid point of the abdominal wall cellulitus where induration was present. This was deepened through the skin to the subcutaneous tissue. Approximately 10 cc of edematous fluid drained. The surgeons finger was placed in the cavity and the wound explored throughout it's entirety, extending to the boarders of the skin cellulitis and down to the anterior rectus fascia. No purulent fluid was encountered. The ultrasound was used to ensure to fluid pockets remained, and none were visualized. The cavity was irrigated with the pulse smoke eater profusely. Hemostasis was achieved. The wound was packed with betadine soaked kurlix and a dressing applied. The patient was taken to the recovery room in stable condition. EBL: minimal Complications: none
== END 2017-08-13 09:30 | disposition home or self-care (01) | DRG 603 ==
LOC: ED 15:52 → MS2 18:34
PROVIDERS: ADMIT Hospitalist; ATTEND Nurse Practitioner
DX: L02.211 Cutaneous abscess of abdominal wall (principal); I50.22 Chronic systolic (congestive) heart failure; I10 Essential (primary) hypertension; F11.20 Opioid dependence, uncomplicated; I48.91 Unspecified atrial fibrillation; L03.311 Cellulitis of abdominal wall; B95.62 Methicillin resistant Staphylococcus aureus infection as the cause of diseases classified elsewhere; I27.29 Other secondary pulmonary hypertension; I11.0 Hypertensive heart disease with heart failure; J44.9 Chronic obstructive pulmonary disease, unspecified; F10.10 Alcohol abuse, uncomplicated; I25.10 Atherosclerotic heart disease of native coronary artery without angina pectoris; F32.9 Major depressive disorder, single episode, unspecified; F41.9 Anxiety disorder, unspecified; F40.240 Claustrophobia; G89.29 Other chronic pain; M54.9 Dorsalgia, unspecified; M13.811 Other specified arthritis, right shoulder; K44.9 Diaphragmatic hernia without obstruction or gangrene; K21.9 Gastro-esophageal reflux disease without esophagitis; N40.1 Benign prostatic hyperplasia with lower urinary tract symptoms; R35.1 Nocturia; H91.90 Unspecified hearing loss, unspecified ear; Z96.649 Presence of unspecified artificial hip joint; Z96.659 Presence of unspecified artificial knee joint; Z66 Do not resuscitate; Z79.1 Long term (current) use of non-steroidal anti-inflammatories (NSAID); Z79.51 Long term (current) use of inhaled steroids; Z79.2 Long term (current) use of antibiotics; Z79.899 Other long term (current) drug therapy; I25.2 Old myocardial infarction; Z95.1 Presence of aortocoronary bypass graft; Z87.891 Personal history of nicotine dependence
CPT/HCPCS: 36415; 80048; 85025; 87070; 87205; 94640; 96365; 99283; 99284

== ENCOUNTER 2019-01-31 08:00 | Outpatient (CLI) | payer OTHER ==
[2019-01-31 13:03] LABS: CREATININE 1.1 mg/dL (0.6-1.2); GFR - MDRD 66 (>89)
[2019-02-01 10:13] LABS: CHOL/HDL RATIO 4.4 (<5.0); CHOLESTEROL 193 mg/dL; HDL CHOLESTEROL 44 mg/dL; LDL CHOLESTEROL,CALCULATED 117 mg/dL; LDL/HDL RATIO 2.7 (<3.6); VLDL CHOLESTEROL 32 mg/dL
[2019-02-02 16:01] LABS: ALBUMIN 4.3 g/dL (3.8-4.8); ALPHA 1 GLOBULIN 0.3 g/dL (0.2-0.3); ALPHA 2 GLOBULIN 0.7 g/dL (0.5-0.9); BETA 1 GLOBULIN 0.5 g/dL (0.4-0.6); BETA 2 GLOBULIN 0.4 g/dL (0.2-0.5)
== END 2019-01-31 08:01 | disposition home or self-care (01) ==
LOC: LAB 08:00
PROVIDERS: ATTEND Internal Medicine Cardiovascular Disease
DX: R06.02 Shortness of breath (principal)
CPT/HCPCS: 36415; 80061; 81599; 82565; 83721; 83880; 84155; 84165; 86334

== ENCOUNTER 2019-05-08 16:28 | Outpatient (CLI) | payer OTHER ==
[2019-05-08 16:47] LABS: BILIRUBIN,URINE NEGATIVE (NEGATIVE); GLUCOSE, URINE (UA) NEGATIVE (NEGATIVE); KETONES,URINE (UA) NEGATIVE (NEGATIVE); LEUKOCYTE ESTERASE, URINE NEGATIVE (NEGATIVE); NITRITE,URINE NEGATIVE (NEGATIVE); OCCULT BLOOD,URINE NEGATIVE (NEGATIVE); PROTEIN,URINE 30 mg/dL (NEGATIVE); UROBILINOGEN,URINE 0.2 (NORMAL) E.U./dL (NORMAL)
[2019-05-08 16:48] LABS: CLARITY,URINE CLEAR (CLEAR)
[2019-05-08 16:50] LABS: HGB - HEMOGLOBIN 15.1 g/dL (14.0-18.0); MEAN CORPUSCULAR HEMOGLOBIN 32.5 pg (27.0-31.0); MEAN CORPUSCULAR HGB CONC 34.3 g/dL (32.0-36.0); MEAN CORPUSCULAR VOLUME 94.6 fL (80.0-94.0); MEAN PLATELET VOLUME 8.9 fL (7.4-11.4); RED BLOOD COUNT 4.65 10^6/uL (4.70-6.10); WHITE BLOOD COUNT 7.7 x10^3/uL (4.8-10.8)
[2019-05-08 16:58] LABS: CALCIUM 9.1 mg/dL (8.5-10.3); CREATININE 1.1 mg/dL (0.6-1.2)
[2019-05-08 17:05] LABS: HB2 TOTAL 15.5 g/dL; HEMOGLOBIN A1C 0.7 g/dL; HEMOGLOBIN A1C % 6.3 % (4.6-6.2)
== END 2019-05-08 16:29 | disposition home or self-care (01) ==
LOC: LAB 16:28
PROVIDERS: ATTEND Orthopaedic Surgery
DX: N39.0 Urinary tract infection, site not specified (principal); R73.9 Hyperglycemia, unspecified; Z01.818 Encounter for other preprocedural examination
CPT/HCPCS: 36415; 80048; 81003; 83036; 85027

== ENCOUNTER 2019-07-06 15:57 | Emergency (ER) | payer MEDICARE, OTHER ==
[2019-07-06 16:38] LABS: BASOPHILS # (AUTO) 0.1 10^3/uL (0.0-0.1); BASOPHILS % (AUTO) 0.5 %; EOSINOPHILS % (AUTO) 0.1 %; HGB - HEMOGLOBIN 10.2 g/dL (14.0-18.0); LYMPHOCYTES # (AUTO) 1.8 10^3/uL (1.5-3.5); LYMPHOCYTES % (AUTO) 17.3 %; MEAN CORPUSCULAR HGB CONC 31.5 g/dL (32.0-36.0); MEAN CORPUSCULAR VOLUME 95.3 fL (80.0-94.0); MEAN PLATELET VOLUME 8.7 fL (7.4-11.4); MONOCYTES % (AUTO) 9.6 %; NEUTROPHILS # (AUTO) 7.6 10^3/uL (1.5-6.6); NEUTROPHILS % (AUTO) 71.6 %; PLT - PLATELET COUNT 302 10^3/uL (130-450); WHITE BLOOD COUNT 10.6 x10^3/uL (4.8-10.8)
[2019-07-06 16:49] LABS: INR 1.1 (0.8-1.2); PT - PROTHROMBIN TIME 12.6 secs (9.9-12.6)
[2019-07-06 16:56] LABS: PARTIAL THROMBOPLASTIN TIME 27.2 secs (24.9-33.3)
[2019-07-06 16:58] LABS: ALBUMIN 4.2 g/dL (3.2-5.5); ALBUMIN/GLOBULIN RATIO 1.3 (1.0-2.2); BILIRUBIN,TOTAL 0.6 mg/dL (0.2-1.0); CALCIUM 9.3 mg/dL (8.5-10.3); CREATININE 0.9 mg/dL (0.6-1.2); TOTAL PROTEIN 7.4 g/dL (6.7-8.2)
[2019-07-06] MEDS ORDERED: SUCRALFATE 1 GM/10 ML UDC PO STA (16:58)
[2019-07-06] MEDS ORDERED: FAMOTIDINE 20 MG/2 ML VIAL IVP STA (16:58)
[2019-07-06] MEDS ORDERED: SODIUM CHLORIDE 0.9% 1,000 ML IV ONE (16:59)
[2019-07-06 17:39] VITALS: BP 124/73
[2019-07-06] MEDS ORDERED: LORazepam 0.5 MG TABLET PO STA (17:57)
--- NOTE | 2019-07-06 18:04 | ED Physician Documentation ---
History of Present Illness - Stated complaint Stated Complaint: ABD PX, BLOODY STOOL - Chief complaint Chief Complaint: Abd Pain - History obtained from History obtained from: Patient - History of Present Illness Timing: How many days ago (10) Pain level max: 4 Pain level now: 3 - Additonal information Additional information: 74-year-old male presents to the emergency department with epigastric abdominal pain and dark tarry stools for the past 10 days. He has been taking 2400 mg of ibuprofen daily since his left knee replacement Approximately 5 weeks ago. He is not currently on a PPI or H2 eli. He felt lightheaded and dizzy today. Worse with standing, better with rest. Review of Systems Constitutional: denies: Fever, Chills Nose: denies: Rhinorrhea / runny nose, Congestion Respiratory: denies: Cough GI: reports: Bloody / black stool. denies: Nausea, Vomiting, Diarrhea : denies: Dysuria, Frequency, Hesitancy Skin: denies: Rash Musculoskeletal: denies: Neck pain, Back pain Neurologic: denies: Headache PD PAST MEDICAL HISTORY - Past Medical History Past Medical History: Yes Cardiovascular: Hypertension, Coronary artery disease, MA, Atrial fibrillation Respiratory: Asthma, COPD Endocrine/Autoimmune: None GI: GERD, Hiatal hernia, Diverticulitis : Benign prostate hypertrophy, Nocturia HEENT: Chronic sinusitis, Chronic hearing loss Psych: Depression, Anxiety, Claustrophobia Musculoskeletal: Osteoarthritis, Chronic back pain, Other Derm: Herpes zoster, Other - Past Surgical History Past Surgical History: Yes General: Cholecystectomy, EGD Ortho: Hip replacement, Knee replacement, Arthroscopic surgery, Other Cardiovascular: CABG, Other HEENT: Other - Present Medications Home Medications: Ambulatory Orders Medication Instructions Recorded Confirmed Lorazepam [Ativan] 1 mg PO TID PRN 01/03/17 08/11/17 Levalbuterol Tartrate [Xopenex Hfa] 2 puffs INH Q4H PRN 06/21/17 08/11/17 traZODone [Desyrel] 300 mg PO QPM 06/21/17 08/11/17 Metoprolol Tartrate 100 mg PO BID 08/01/17 08/11/17 Furosemide 20 mg PO DAILY #30 tablet 08/05/17 08/11/17 Ibuprofen [Motrin] 600 mg PO Q6HR tablet 08/05/17 08/11/17 Spironolactone 50 mg PO BID #60 tablet 08/05/17 08/11/17 Doxycycline Hyclate 100 mg PO BID 28 Days #56 capsule 08/13/17 Oxycodone HCl/Acetaminophen 1 each PO PRN PRN #20 tablet 08/13/17 [Oxycodone-Acetaminophen 5-325] oxyCODONE/ACET 5/325 [Percocet 5 1 tab PO Q6HR PRN #20 tablet 08/13/17 mg/325 mg] Omeprazole 20 mg PO DAILY #30 capsule. 07/06/19 Sucralfate [Carafate] 1 gm PO ACHS #60 tablet 07/06/19 - Allergies Allergies/Adverse Reactions: Allergies Allergy/AdvReac Type Severity Reaction Status Date / Time albuterol Allergy Severe heart Verified 07/06/19 16:05 palpatation pantoprazole sodium * Allergy Intermediate Nausea Verified 07/06/19 16:05 [From Protonix] Pwfasqc-Ckd-Pah Reductase Allergy Intermediate Unknown Verified 07/06/19 16:05 Inhibitor Sulfa (Sulfonamide Allergy Intermediate Rash Verified 07/06/19 16:05 Antibiotics) latex Allergy Mild Itching Verified 07/06/19 16:05 diazepam [From Valium] AdvReac Severe DELIRIUM Verified 07/06/19 16:05 hydrocodone [From [place]] AdvReac Anxiety Verified 07/06/19 16:05 morphine AdvReac Anxiety Verified 07/06/19 16:05 - Social History Does the pt smoke?: No Smoking Status: Never smoker Does the pt drink ETOH?: Yes Does the pt have substance abuse?: No - Immunizations Immunizations are current?: Yes - POLST Patient has POLST: No POLST Status: Full Code PD ED PE NORMAL - Vitals Vital signs reviewed: Yes - General General: Alert and oriented X 3, No acute distress, Well developed/nourished - HEENT HEENT: PERRL, Moist mucous membranes - Neck Neck: Supple, no meningeal sign - Cardiac Cardiac: RRR - Respiratory Respiratory: No respiratory distress, Clear bilaterally - Abdomen Abdomen: Soft, Non tender, Non distended - Rectal Rectal: Pt declined - Derm Derm: Warm and dry - Extremities Extremities: No edema - Neuro Neuro: Alert and oriented X 3 - Psych Psych: Normal mood, Normal affect Results - Vitals Vitals: Vital Signs - 24 hr 07/06/19 07/06/19 16:00 17:38 Temperature 36.8 C Heart Rate 84 82 Respiratory 17 18 Rate Blood Pressure 148/87 H 124/73 O2 Saturation 98 Oxygen O2 Source [With Activity] Room air O2 Source Room air - Labs Labs: Laboratory Tests 07/06/19 07/06/19 07/06/19 16:33 16:33 16:33 WBC 10.6 RBC 3.40 L Hgb 10.2 L Hct 32.4 L MCV 95.3 H MCH 30.0 MCHC 31.5 L RDW 13.0 Plt Count 302 MPV 8.7 Neut # (Auto) 7.6 H Lymph # (Auto) 1.8 Wright # (Auto) 1.0 Eos # (Auto) 0.0 Baso # (Auto) 0.1 Absolute Nucleated RBC 0.00 Nucleated RBC % 0.0 PT 12.6 INR 1.1 APTT 27.2 Sodium 137 Potassium 4.0 Chloride 100 L Carbon Dioxide 28 Anion Gap 9.0 BUN 31 H Creatinine 0.9 Estimated GFR (MDRD) 82 L Glucose 112 H Calcium 9.3 Total Bilirubin 0.6 AST 18 ALT 13 Alkaline Phosphatase 62 Total Protein 7.4 Albumin 4.2 Globulin 3.2 Albumin/Globulin Ratio 1.3 Lipase 42 PD MEDICAL DECISION MAKING - ED course Complexity details: reviewed results, re-evaluated patient, considered differential, d/w patient, d/w family ED course: Patient appears to have a stable upper GI bleed. No hemodynamic instability. Hemoglobin of 10. We will start him back on a PPI. Was given an H2 eli here. We will also place on Carafate for home. We will have him stop all NSAIDs, alcohol, aspirin until his stomach heals. Patient and family counseled regarding signs and symptoms for which I believe and urgent re-evaluation would be necessary. Patient with good understanding of and agreement to plan and is comfortable going home at this time This document was made in part using voice recognition software. While efforts are made to proofread this document, sound alike and grammatical errors may occur. Departure - Departure Disposition: 01 Home, Self Care Clinical Impression: GI bleed Qualifiers: GI bleed type/associated pathology: melena Qualified Code(s): K92.1 - Melena Condition: Good Instructions: ED Bleed UGI Stable Follow-Up: Aureliano Webb MD [Primary Care Provider] - Within 3 Days Prescriptions: Omeprazole 20 mg PO DAILY #30 capsule. Sucralfate [Carafate] 1 gm PO ACHS #60 tablet Comments: Avoid caffeine, alcohol, anti-inflammatory medication such as Motrin and Aleve. Follow-up with your doctor in 3 days to have your blood counts rechecked. Return if you worsen. Discharge Date/Time: 07/06/19 18:27
== END 2019-07-06 18:27 | disposition home or self-care (01) ==
LOC: ED 15:57
DX: K92.1 Melena (principal); I10 Essential (primary) hypertension
CPT/HCPCS: 36415; 80053; 83690; 85025; 85610; 85730; 96361; 96374; 99283; 99284; A9270

== ENCOUNTER 2019-07-14 09:11 | Emergency (ER) | payer MEDICARE ==
--- NOTE | 2019-07-14 10:03 | ED Physician Documentation ---
PD HPI ABD PAIN - Stated complaint Stated Complaint: MALE - Chief complaint Chief Complaint: General - History obtained from History obtained from: Patient - History of Present Illness Timing - onset: How many days ago (2) Timing - duration: Days (2) Timing - details: Abrupt onset (he was lifting a light box and felt onset of right flank to right lower abd pain soon after. Thought it pulled muscle. Has had continued pain that area though. Also had concern for GI bleeding with upper abd pain, weakness, and lower blood count few days ago, seen here, and had repeat blood count 2 days ago by PMD. No ntoe melena nor blood in stool. Declined rectal exam. Can send with [employer] cards.) Quality: Sharp, Pain Location: RLQ Radiation: Right flank Improved by: Laying still Worsened by: Moving. No: Breathing, Palpation Associated symptoms: Loss of appetite. No: Fever, Nausea, Vomiting, Diarrhea, Melena, Hematochezia, Dysuria, Hematuria Similar symptoms before: Has not had sx before (denies kidney stones, thoracic pinched nerves. But has had prior lumbar surgery for discs.) Recently seen: Clinic (2 days ago with blood tests done, and Hgb was lower, at 9.1 (done through [facility]).), Emergency Dept (several days ago for epigastric pain and noted to have lower Hgb.) Review of Systems Constitutional: reports: Fatigue. denies: Fever, Chills Nose: denies: Rhinorrhea / runny nose, Congestion Throat: denies: Sore throat Respiratory: denies: Cough GI: reports: Abdominal Pain (epigastric). denies: Nausea, Vomiting, Diarrhea, Hematemesis, Bloody / black stool : denies: Dysuria, Frequency, Hematuria Skin: denies: Rash Neurologic: reports: Generalized weakness. denies: Focal weakness, Numbness PD PAST MEDICAL HISTORY - Past Medical History Cardiovascular: Hypertension, Coronary artery disease, [place], Atrial fibrillation Respiratory: Asthma, COPD Endocrine/Autoimmune: None GI: GERD, Hiatal hernia, Diverticulitis : Benign prostate hypertrophy, Nocturia HEENT: Chronic sinusitis, Chronic hearing loss Psych: Depression, Anxiety, Claustrophobia Musculoskeletal: Osteoarthritis, Chronic back pain, Other Derm: Herpes zoster, Other - Past Surgical History Past Surgical History: Yes General: Cholecystectomy, EGD Ortho: Hip replacement, Knee replacement, Arthroscopic surgery, Other Cardiovascular: CABG, Other HEENT: Other - Present Medications Home Medications: Ambulatory Orders Medication Instructions Recorded Confirmed Lorazepam [Ativan] 1 mg PO TID PRN 01/03/17 08/11/17 Levalbuterol Tartrate [Xopenex Hfa] 2 puffs INH Q4H PRN 06/21/17 08/11/17 traZODone [Desyrel] 300 mg PO QPM 06/21/17 08/11/17 Metoprolol Tartrate 100 mg PO BID 08/01/17 08/11/17 Furosemide 20 mg PO DAILY #30 tablet 08/05/17 08/11/17 Ibuprofen [Motrin] 600 mg PO Q6HR tablet 08/05/17 08/11/17 Spironolactone 50 mg PO BID #60 tablet 08/05/17 08/11/17 Doxycycline Hyclate 100 mg PO BID 28 Days #56 capsule 08/13/17 Oxycodone HCl/Acetaminophen 1 each PO PRN PRN #20 tablet 08/13/17 [Oxycodone-Acetaminophen 5-325] oxyCODONE/ACET 5/325 [Percocet 5 1 tab PO Q6HR PRN #20 tablet 08/13/17 mg/325 mg] Omeprazole 20 mg PO DAILY #30 capsule. 07/06/19 Sucralfate [Carafate] 1 gm PO ACHS #60 tablet 07/06/19 Ferrous Sulfate 325 mg PO DAILY #30 tablet 07/14/19 Oxycodone HCl/Acetaminophen 1 each PO Q4H PRN #12 tablet 07/14/19 [Oxycodon-Acetaminophen 7.5-325] - Allergies Allergies/Adverse Reactions: Allergies Allergy/AdvReac Type Severity Reaction Status Date / Time albuterol Allergy Severe heart Verified 07/14/19 09:33 palpatation pantoprazole sodium * Allergy Intermediate Nausea Verified 07/14/19 09:33 [From Protonix] Iibcmlo-Uzm-Ejc Reductase Allergy Intermediate Unknown Verified 07/14/19 09:33 Inhibitor Sulfa (Sulfonamide Allergy Intermediate Rash Verified 07/14/19 09:33 Antibiotics) latex Allergy Mild Itching Verified 07/14/19 09:33 diazepam [From Valium] AdvReac Severe DELIRIUM Verified 07/14/19 09:33 hydrocodone [From [place]] AdvReac Anxiety Verified 07/14/19 09:33 morphine AdvReac Anxiety Verified 07/14/19 09:33 - Social History Does the pt smoke?: No Smoking Status: Never smoker Does the pt drink ETOH?: Yes Does the pt have substance abuse?: No - Immunizations Immunizations are current?: Yes - POLST Patient has POLST: No POLST Status: Full Code PD ED PE NORMAL - Vitals Vital signs reviewed: Yes - General General: Alert and oriented X 3, No acute distress (but says he has significant pain), Well developed/nourished - HEENT HEENT: Moist mucous membranes, Pharynx benign - Neck Neck: Supple, no meningeal sign, No adenopathy - Cardiac Cardiac: RRR, No murmur - Respiratory Respiratory: Clear bilaterally - Abdomen Abdomen: Normal bowel sounds, Soft, Non distended, Other (mild tender epigastric without guarding. Right lower abd without masses, no noted inguinal hernia. RIght flank with some CVA tenderness. No rash nor sores. No vertebral tenderness. ) - Male Male : Deferred - Rectal Rectal: Pt declined - Derm Derm: Normal color, Warm and dry - Extremities Extremities: No tenderness to palpate, Normal ROM s pain - Neuro Neuro: Alert and oriented X 3, No motor deficit, Normal speech Results - Vitals Vitals: Vital Signs - 24 hr 07/14/19 07/14/19 07/14/19 09:28 10:03 11:33 Temperature 97.6 C H 36.9 C 37.2 C Heart Rate 70 67 67 Respiratory 16 16 20 Rate Blood Pressure 126/61 144/70 H 143/62 H O2 Saturation 97 96 95 07/14/19 07/14/19 11:35 13:30 Temperature 37 C Heart Rate 67 85 Respiratory 18 16 Rate Blood Pressure 136/74 H 117/76 O2 Saturation 96 96 Oxygen O2 Source [With Activity] Room air O2 Source Room air - Labs Labs: Laboratory Tests 07/14/19 07/14/19 07/14/19 09:50 10:00 10:00 WBC 8.3 RBC 3.07 L Hgb 8.9 L Hct 29.5 L MCV 96.1 H MCH 29.0 MCHC 30.2 L RDW 13.6 Plt Count 274 MPV 8.3 Neut # (Auto) 5.8 Lymph # (Auto) 1.2 L [place] # (Auto) 0.8 Eos # (Auto) 0.4 Baso # (Auto) 0.1 Absolute Nucleated RBC 0.00 Nucleated RBC % 0.0 Sodium 140 Potassium 4.0 Chloride 105 Carbon Dioxide 28 Anion Gap 7.0 BUN 13 Creatinine 0.9 Estimated GFR (MDRD) 82 L Glucose 109 H Calcium 8.5 Iron TIBC % Saturation Transferrin Ferritin Total Bilirubin 0.6 AST 18 ALT 16 Alkaline Phosphatase 54 Total Protein 7.0 Albumin 3.7 Globulin 3.3 Albumin/Globulin Ratio 1.1 Lipase 35 Vitamin B12 Urine Color YELLOW Urine Clarity CLEAR Urine pH 6.5 Ur Specific [place] 1.015 Urine Protein NEGATIVE Urine Glucose (UA) NEGATIVE Urine Ketones NEGATIVE Urine Occult Blood NEGATIVE Urine Nitrite NEGATIVE Urine Bilirubin NEGATIVE Urine Urobilinogen 0.2 (NORMAL) Ur Leukocyte Esterase NEGATIVE Ur Microscopic Review NOT INDICATED Urine Culture Comments NOT INDICATED 07/14/19 07/14/19 10:00 10:00 WBC RBC Hgb Hct MCV MCH MCHC RDW Plt Count MPV Neut # (Auto) Lymph # (Auto) [place] # (Auto) Eos # (Auto) Baso # (Auto) Absolute Nucleated RBC Nucleated RBC % Sodium Potassium Chloride Carbon Dioxide Anion Gap BUN Creatinine Estimated GFR (MDRD) Glucose Calcium Iron 30 L TIBC 462 H % Saturation 6 L Transferrin 330 H Ferritin 33.6 Total Bilirubin AST ALT Alkaline Phosphatase Total Protein Albumin Globulin Albumin/Globulin Ratio Lipase Vitamin B12 303 Urine Color Urine Clarity Urine pH Ur Specific [place] Urine Protein Urine Glucose (UA) Urine Ketones Urine Occult Blood Urine Nitrite Urine Bilirubin Urine Urobilinogen Ur Leukocyte Esterase Ur Microscopic Review Urine Culture Comments PD MEDICAL DECISION MAKING - ED course Complexity details: reviewed old records, reviewed results, re-evaluated patient (less pain with meds. ), considered differential (consider muscle strain, thoracic pinched nerve, kidney stone, intraabd process. ), d/w patient Departure - Departure Disposition: 01 Home, Self Care Clinical Impression: Esophagitis, Right sided abdominal pain Anemia Qualifiers: Anemia type: unspecified type Qualified Code(s): D64.9 - Anemia, unspecified Condition: Stable Record reviewed to determine appropriate education?: Yes Instructions: ED Flank Pain Uncertain Cause Follow-Up: Aureliano Webb MD [Primary Care Provider] - Prosper Arias DO [Provider Admit Priv/Credential] - Prescriptions: Ferrous Sulfate 325 mg PO DAILY #30 tablet Oxycodone HCl/Acetaminophen [Oxycodon-Acetaminophen 7.5-325] 1 each PO Q4H PRN #12 tablet PRN Reason: Pain Comments: Continue your stomach medications with the omeprazole and Carafate. Your blood count today is a little bit lower still. You do appear iron deficient. Use iron supplements daily with food. Contact your primary care on Tuesday and also the surgical center. May be appropriate to get a scope to look for ongoing bleeding in the esophagus or stomach. Meanwhile stay well-hydrated. Tylenol or oxycodone if needed for pains over the next few days. Your CT scan did not show any obvious abnormality on the right abdomen such as kidney stones or appendix or such. Presume it is muscular pain or potentially a pinched nerve. This should improve in the next few days. Discharge Date/Time: 07/14/19 13:35
[2019-07-14 10:04] LABS: BILIRUBIN,URINE NEGATIVE (NEGATIVE); GLUCOSE, URINE (UA) NEGATIVE (NEGATIVE); KETONES,URINE (UA) NEGATIVE (NEGATIVE); LEUKOCYTE ESTERASE, URINE NEGATIVE (NEGATIVE); NITRITE,URINE NEGATIVE (NEGATIVE); OCCULT BLOOD,URINE NEGATIVE (NEGATIVE); PH,URINE 6.5 PH (5.0-7.5); PROTEIN,URINE NEGATIVE (NEGATIVE); UROBILINOGEN,URINE 0.2 (NORMAL) E.U./dL (NORMAL)
[2019-07-14 10:05] LABS: CLARITY,URINE CLEAR (CLEAR)
[2019-07-14 10:09] LABS: BASOPHILS # (AUTO) 0.1 10^3/uL (0.0-0.1); BASOPHILS % (AUTO) 0.6 %; EOSINOPHILS # (AUTO) 0.4 10^3/uL (0.0-0.7); EOSINOPHILS % (AUTO) 4.6 %; HGB - HEMOGLOBIN 8.9 g/dL (14.0-18.0); LYMPHOCYTES # (AUTO) 1.2 10^3/uL (1.5-3.5); LYMPHOCYTES % (AUTO) 14.5 %; MEAN CORPUSCULAR HGB CONC 30.2 g/dL (32.0-36.0); MEAN CORPUSCULAR VOLUME 96.1 fL (80.0-94.0); MEAN PLATELET VOLUME 8.3 fL (7.4-11.4); MONOCYTES # (AUTO) 0.8 10^3/uL (0.0-1.0); MONOCYTES % (AUTO) 9.5 %; NEUTROPHILS # (AUTO) 5.8 10^3/uL (1.5-6.6); NEUTROPHILS % (AUTO) 70.2 %; PLT - PLATELET COUNT 274 10^3/uL (130-450); RED BLOOD COUNT 3.07 10^6/uL (4.70-6.10); RED CELL DISTRIBUTION WIDTH 13.6 % (12.0-15.0); WHITE BLOOD COUNT 8.3 x10^3/uL (4.8-10.8)
[2019-07-14 10:22] LABS: ALBUMIN 3.7 g/dL (3.2-5.5); ALBUMIN/GLOBULIN RATIO 1.1 (1.0-2.2); BILIRUBIN,TOTAL 0.6 mg/dL (0.2-1.0); CALCIUM 8.5 mg/dL (8.5-10.3); CREATININE 0.9 mg/dL (0.6-1.2)
[2019-07-14] MEDS ORDERED: HYDROmorphone 1 MG/ML CARPUJECT IVP STA ×2 (10:43→13:07)
[2019-07-14] MEDS ORDERED: SODIUM CHLORIDE 0.9% 1,000 ML IV ONE (10:43)
[2019-07-14] MEDS ORDERED: ONDANSETRON 4 MG/2 ML VIAL IVP STA (10:44)
[2019-07-14] MEDS ORDERED: FAMOTIDINE 20 MG/2 ML VIAL IVP STA (10:44)
[2019-07-14 11:16] LABS: % IRON SATURATION 6 % (20-50); IRON 30 ug/dL (45-182); TOTAL IRON BINDING CAPACITY 462 ug/dL (250-450); TRANSFERRIN 330 mg/dL (180-329)
[2019-07-14 11:25] LABS: FERRITIN 33.6 ng/mL (23.9-336.2)
--- NOTE | 2019-07-14 11:37 | CT Report ---
Reason: right flank to inguinal pain for 3 days Procedure Date: 07/14/2019 Accession Number: [id number] / [id number] Procedure: CT - Abdomen/Pelvis WO CPT Code: Final Report FULL RESULT: EXAM: CT ABDOMEN AND PELVIS (CT KUB) EXAM DATE: 07/14/2019 11:18 AM. CLINICAL HISTORY: Right flank to inguinal pain for 3 days. COMPARISONS: ABDOMEN/PELVIS W/O 08/01/2017 9:53 AM. TECHNIQUE: Routine axial helical CT imaging was performed through the abdomen and pelvis without IV contrast. Reconstructions: Coronal and sagittal. In accordance with CT protocol optimization, one or more of the following dose reduction techniques were utilized for this exam: automated exposure control, adjustment of mA and/or KV based on patient size, or use of iterative reconstructive technique. FINDINGS: Lung Bases: Linear lower lung predominant pulmonary opacities likely reflect atelectasis or scarring. No other focal airspace consolidation. Pleural effusion. Right Kidney/Ureter: Unchanged mild to moderate right perinephric fat stranding. No renal calculi. No hydroureteronephrosis. No contour deforming masses. Left Kidney/Ureter: Unchanged mild left perinephric fat stranding. No renal calculi. No hydroureteronephrosis. No contour deforming masses. Other Solid Organs: No focal liver lesions are evident. Mild hepatic steatosis. Small splenic calcifications are unchanged likely reflecting sequelae of remote granulomatous infection. Unremarkable pancreas and adrenal glands. Gallbladder/Bile Ducts: Surgically absent gallbladder. No unexpected biliary dilation. Peritoneal Cavity: Small hiatal hernia. Apparent distal esophageal wall thickening of unclear etiology. No pneumoperitoneum or ascites. Normal caliber bowel loops without obstruction. No pathologically enlarged intraperitoneal or retroperitoneal lymph nodes. Normal caliber appendix. Descending and sigmoid colonic diverticula without evidence for acute diverticulitis. No fluid collections. Pelvic Organs: Evaluation of the pelvis is severely limited due to streak artifact unremarkable visualized urinary bladder. No enlarged lymph nodes or fluid collections are seen.. Vasculature: Atherosclerotic calcification is. No aneurysms. Other: Prior right inguinal and umbilical hernia repair is evident. Degenerative changes seen in the spine. Spinal fusion hardware appears unremarkable on limited evaluation. Injection granulomas are seen in the subcutaneous fat of the buttocks bilaterally. IMPRESSION: 1. No evidence for urinary calculi or obstruction. Appendix is normal. No findings to explain acute abdominal pain. 2. Colonic diverticulosis without evidence for acute diverticulitis. 3. Hepatic steatosis. 4. Apparent distal esophageal wall thickening of unclear etiology. Nonemergent barium esophagram could be obtained for further evaluation as clinically indicated. RADIA
[2019-07-14] MEDS ORDERED: oxyCODONE 5 MG TABLET PO STA (13:17)
[2019-07-14 13:30] VITALS: BP 117/76
== END 2019-07-14 13:35 | disposition home or self-care (01) ==
LOC: ED 09:11
DX: K21.0 Gastro-esophageal reflux disease with esophagitis (principal); R10.31 Right lower quadrant pain; D64.9 Anemia, unspecified; I10 Essential (primary) hypertension; K76.0 Fatty (change of) liver, not elsewhere classified
CPT/HCPCS: 36415; 74176; 80053; 81003; 82607; 82728; 83540; 83690; 84466; 85025; 96361; 96374; 99284; A9270; J1170; 81001; 87086

== ENCOUNTER 2019-07-19 16:19 | Emergency (ER) | payer MEDICARE ==
--- NOTE | 2019-07-19 17:11 | XRAY Report ---
Reason: COUGH/SOB Procedure Date: 07/19/2019 Accession Number: [id number] / [id number] Procedure: XR - Chest 1 View X-Ray CPT Code: 50591 Final Report FULL RESULT: EXAM: CHEST RADIOGRAPHY EXAM DATE: 07/19/2019 04:48 PM. CLINICAL HISTORY: Cough and shortness of breath. COMPARISON: CHEST 2 VIEW PA/LAT 08/01/2017 8:48 AM. TECHNIQUE: 1 view. FINDINGS: Lungs/Pleura: Stable mild left base scarring, otherwise no focal opacities evident. No pleural effusion. No pneumothorax. Mediastinum: Prior sternotomy. Within exam limitations, the cardiomediastinal contour is normal. Other: Lower cervical fusion noted. IMPRESSION: No acute abnormality or interval change. RADIA
--- NOTE | 2019-07-19 17:49 | ED Physician Documentation ---
PD HPI DYSPNEA - Stated complaint Stated Complaint: SOA,COUGH - Chief complaint Chief Complaint: Resp - History obtained from History obtained from: Patient - History of Present Illness Timing - onset: Other (3 days productive cough, dyspnea. Some presyncope. No syncope. Recent Knee replacement by Dr Chaidez and was on ibuprofen causing upper gi bleed/gastritis.) - Additional information Additional information: He was having some low H&H is, he is on omeprazole and sucralfate now, has stopped the ibuprofen. says he does not look any more pale than he has been. No leg swelling but the knee still hurts. He still on narcotics, but he pretty much has been on narcotics most of his adult life. Review of Systems Constitutional: denies: Fever, Chills Ears: reports: Reviewed and negative Nose: reports: Reviewed and negative Cardiac: denies: Chest pain / pressure, Palpitations Respiratory: reports: Dyspnea, Cough, Wheezing PD PAST MEDICAL HISTORY - Past Medical History Past Medical History: Yes Cardiovascular: Hypertension, Coronary artery disease, [place], Atrial fibrillation Respiratory: Asthma, COPD Endocrine/Autoimmune: None GI: GERD, Hiatal hernia, Diverticulitis : Benign prostate hypertrophy, Nocturia HEENT: Chronic sinusitis, Chronic hearing loss Psych: Depression, Anxiety, Claustrophobia Musculoskeletal: Osteoarthritis, Chronic back pain, Other Derm: Herpes zoster, Other - Past Surgical History Past Surgical History: Yes General: Cholecystectomy, EGD Ortho: Hip replacement, Knee replacement, Arthroscopic surgery, Other Cardiovascular: CABG, Other HEENT: Other - Present Medications Home Medications: Ambulatory Orders Medication Instructions Recorded Confirmed Lorazepam [Ativan] 1 mg PO TID PRN 01/03/17 08/11/17 Levalbuterol Tartrate [Xopenex Hfa] 2 puffs INH Q4H PRN 06/21/17 08/11/17 traZODone [Desyrel] 300 mg PO QPM 06/21/17 08/11/17 Metoprolol Tartrate 100 mg PO BID 08/01/17 08/11/17 Furosemide 20 mg PO DAILY #30 tablet 08/05/17 08/11/17 Ibuprofen [Motrin] 600 mg PO Q6HR tablet 08/05/17 08/11/17 Spironolactone 50 mg PO BID #60 tablet 12/29/17 01/04/18 Doxycycline Hyclate 100 mg PO BID 28 Days #56 capsule 08/13/17 Oxycodone HCl/Acetaminophen 1 each PO PRN PRN #20 tablet 08/13/17 [Oxycodone-Acetaminophen 5-325] oxyCODONE/ACET 5/325 [Percocet 5 1 tab PO Q6HR PRN #20 tablet 08/13/17 mg/325 mg] Omeprazole 20 mg PO DAILY #30 capsule. 07/06/19 Sucralfate [Carafate] 1 gm PO ACHS #60 tablet 07/06/19 Ferrous Sulfate 325 mg PO DAILY #30 tablet 07/14/19 Oxycodone HCl/Acetaminophen 1 each PO Q4H PRN #12 tablet 07/14/19 [Oxycodon-Acetaminophen 7.5-325] Azithromycin 1 tab PO DAILY #4 tablet 07/19/19 Beclomethasone 40 Mcg [Qvar 40] 2 puffs INH BID #1 inhaler 07/19/19 - Allergies Allergies/Adverse Reactions: Allergies Allergy/AdvReac Type Severity Reaction Status Date / Time albuterol Allergy Severe heart Verified 07/14/19 09:33 palpatation pantoprazole sodium * Allergy Intermediate Nausea Verified 07/14/19 09:33 [From Protonix] Vvwmegj-Bod-Qwk Reductase Allergy Intermediate Unknown Verified 07/14/19 09:33 Inhibitor Sulfa (Sulfonamide Allergy Intermediate Rash Verified 07/14/19 09:33 Antibiotics) latex Allergy Mild Itching Verified 07/14/19 09:33 diazepam [From Valium] AdvReac Severe DELIRIUM Verified 07/14/19 09:33 hydrocodone [From [place]] AdvReac Anxiety Verified 07/14/19 09:33 morphine AdvReac Anxiety Verified 07/14/19 09:33 - Social History Does the pt smoke?: No Smoking Status: Never smoker Does the pt drink ETOH?: Yes Does the pt have substance abuse?: No - Immunizations Immunizations are current?: Yes - POLST Patient has POLST: No POLST Status: Full Code PD ED PE NORMAL - Vitals Vital signs reviewed: Yes - General General: Alert and oriented X 3, No acute distress - HEENT HEENT: PERRL, EOMI - Neck Neck: Supple, no meningeal sign, No bony TTP - Cardiac Cardiac: RRR, No murmur - Respiratory Respiratory: No respiratory distress, Other (Diffusely wheezy and rhonchorous, no focal findings.) - Extremities Extremities: Other (No obvious edema of the left calf) - Neuro Neuro: Alert and oriented X 3, Normal speech Results - Vitals Vitals: Vital Signs - 24 hr 07/19/19 07/19/19 07/19/19 16:25 16:28 17:58 Temperature 36.8 C Heart Rate 85 73 Respiratory 18 14 Rate Blood Pressure 112/63 O2 Saturation 95 07/19/19 19:12 Temperature 36.9 C Heart Rate 76 Respiratory 20 Rate Blood Pressure 110/75 O2 Saturation 95 Oxygen O2 Source [] Room air O2 Source Room air - EKG (time done) 1647 Rate: Rate (enter#) (83) Rhythm: NSR (with 1 pvc) [place]: RAD Intervals: Normal VA QRS: Normal Ischemia: Normal ST segments Computer interpretation: Agree with computer - Labs Labs: Laboratory Tests 07/19/19 07/19/19 07/19/19 18:01 18:01 18:01 WBC 7.8 RBC 3.45 L Hgb 10.2 L Hct 33.5 L MCV 97.1 H MCH 29.6 MCHC 30.4 L RDW 13.7 Plt Count 284 MPV 8.6 Neut # (Auto) 5.2 Lymph # (Auto) 1.3 L [place] # (Auto) 0.7 Eos # (Auto) 0.6 Baso # (Auto) 0.1 Absolute Nucleated RBC 0.00 Nucleated RBC % 0.0 D-Dimer Sodium 137 Potassium 4.3 Chloride 101 Carbon Dioxide 27 Anion Gap 9.0 BUN 22 H Creatinine 1.1 Estimated GFR (MDRD) 65 L Glucose 108 H Calcium 9.0 Total Bilirubin 0.6 AST 19 ALT 18 Alkaline Phosphatase 59 Total Protein 7.3 Albumin 3.8 Globulin 3.5 Albumin/Globulin Ratio 1.1 Lipase 32 Blood Type O POSITIVE Antibody Screen NEGATIVE 07/19/19 18:01 WBC RBC Hgb Hct MCV MCH MCHC RDW Plt Count MPV Neut # (Auto) Lymph # (Auto) [place] # (Auto) Eos # (Auto) Baso # (Auto) Absolute Nucleated RBC Nucleated RBC % D-Dimer 756.8 H Sodium Potassium Chloride Carbon Dioxide Anion Gap BUN Creatinine Estimated GFR (MDRD) Glucose Calcium Total Bilirubin AST ALT Alkaline Phosphatase Total Protein Albumin Globulin Albumin/Globulin Ratio Lipase Blood Type Antibody Screen - Rads (name of study) 1v chest Radiology: EMP read contemporaneously (NAD) CT PA Radiology: EMP read contemporaneously (negative) PD MEDICAL DECISION MAKING - ED course ED course: 74-year-old gentleman with dyspnea, also some wheezing. Seems like bronchitis. Given recent knee replacement a d-dimer was checked and quite elevated and followed with a PE study which was negative. Departure - Departure Disposition: Home, Self Care Clinical Impression: Bronchitis, Dyspnea Condition: Good Record reviewed to determine appropriate education?: Yes Instructions: ED Bronchitis Asthmatic Prescriptions: Azithromycin 1 tab PO DAILY #4 tablet Beclomethasone 40 Mcg [Qvar 40] 2 puffs INH BID #1 inhaler Comments: Your anemia is improving, the CT showed no evidence of blood clots. We will trial some antibiotics. You can continue your home nebulizers, and I will add a prescription for an inhaled steroid. No oral steroids given recent GI bleeding. Return if worse. Follow-up with your regular doctor, next available appointment.
[2019-07-19] MEDS: LEVALBUTEROL 1.25 MG/3 ML NEB INH STA (17:57)
[2019-07-19 18:17] LABS: BASOPHILS # (AUTO) 0.1 10^3/uL (0.0-0.1); BASOPHILS % (AUTO) 0.6 %; EOSINOPHILS # (AUTO) 0.6 10^3/uL (0.0-0.7); EOSINOPHILS % (AUTO) 7.2 %; HGB - HEMOGLOBIN 10.2 g/dL (14.0-18.0); LYMPHOCYTES # (AUTO) 1.3 10^3/uL (1.5-3.5); LYMPHOCYTES % (AUTO) 16.2 %; MEAN CORPUSCULAR HEMOGLOBIN 29.6 pg (27.0-31.0); MEAN CORPUSCULAR HGB CONC 30.4 g/dL (32.0-36.0); MEAN CORPUSCULAR VOLUME 97.1 fL (80.0-94.0); MEAN PLATELET VOLUME 8.6 fL (7.4-11.4); MONOCYTES # (AUTO) 0.7 10^3/uL (0.0-1.0); MONOCYTES % (AUTO) 8.8 %; NEUTROPHILS # (AUTO) 5.2 10^3/uL (1.5-6.6); NEUTROPHILS % (AUTO) 66.7 %; PLT - PLATELET COUNT 284 10^3/uL (130-450); RED BLOOD COUNT 3.45 10^6/uL (4.70-6.10); RED CELL DISTRIBUTION WIDTH 13.7 % (12.0-15.0); WHITE BLOOD COUNT 7.8 x10^3/uL (4.8-10.8)
[2019-07-19 18:30] LABS: ALBUMIN 3.8 g/dL (3.2-5.5); ALBUMIN/GLOBULIN RATIO 1.1 (1.0-2.2); BILIRUBIN,TOTAL 0.6 mg/dL (0.2-1.0); CREATININE 1.1 mg/dL (0.6-1.2); TOTAL PROTEIN 7.3 g/dL (6.7-8.2)
[2019-07-19] MEDS ORDERED: IOVERSOL 320 100 ML VIAL IVP ONE (18:58)
[2019-07-19 19:13] VITALS: BP 110/75
[2019-07-19] MEDS: IOVERSOL 320 100 ML VIAL IVP ONE (19:33)
--- NOTE | 2019-07-19 20:04 | CT Report ---
Reason: dyspnea high dimer, PE protocol Procedure Date: 07/19/2019 Accession Number: [id number] / [id number] Procedure: CT - ANGIO CHEST W/WO CPT Code: Final Report FULL RESULT: EXAM: CT ANGIOGRAM CHEST EXAM DATE: 07/19/2019 07:35 PM. CLINICAL HISTORY: Dyspnea high dimer, PE protocol. COMPARISON: None. TECHNIQUE: Routine helical imaging was performed through the chest in the pulmonary arterial phase. IV Contrast: OPTI 320 80ML. Reconstructions: Coronal 3-D MIP reconstructions.Sagittal and coronal. In accordance with CT protocol optimization, one or more of the following dose reduction techniques were utilized for this exam: automated exposure control, adjustment of mA and/or KV based on patient size, or use of iterative reconstructive technique. FINDINGS: Pulmonary Arteries: Diagnostic quality: Adequate through the segmental arteries. No evidence for acute or chronic pulmonary emboli. RV/LV is within normal limits. There is no interventricular septal bowing. There is no reflux of contrast material in the IVC. Lungs/Pleura: No consolidation, nodules, or edema. No effusions or pneumothorax. Mediastinum: Normal. No cardiac enlargement or adenopathy. Thoracic Aorta: Unremarkable. Upper Abdomen: Unremarkable. Other: None. IMPRESSION: Normal pulmonary CT angiogram. No pulmonary emboli. RADIA
[2019-07-19] MEDS: oxyCODONE 5 MG TABLET PO STA (20:05)
[2019-07-19] MEDS: AZITHROMYCIN 250 MG TABLET PO STA (20:28)
== END 2019-07-19 20:29 | disposition home or self-care (01) ==
LOC: ED 16:19
DX: J40 Bronchitis, not specified as acute or chronic (principal); R06.00 Dyspnea, unspecified; I10 Essential (primary) hypertension; Z96.659 Presence of unspecified artificial knee joint
CPT/HCPCS: 36415; 71045; 71275; 80053; 83690; 85025; 85379; 86850; 86900; 86901; 93005; 94640; 99284; A9270; Q9967

== ENCOUNTER 2019-08-03 13:53 | Outpatient (CLI) | payer MEDICARE ==
[2019-08-03 14:04] LABS: BASOPHILS % (AUTO) 0.3 %; HGB - HEMOGLOBIN 11.6 g/dL (14.0-18.0); LYMPHOCYTES # (AUTO) 1.4 10^3/uL (1.5-3.5); LYMPHOCYTES % (AUTO) 10.4 %; MEAN CORPUSCULAR HEMOGLOBIN 27.6 pg (27.0-31.0); MEAN CORPUSCULAR HGB CONC 30.3 g/dL (32.0-36.0); MEAN PLATELET VOLUME 8.4 fL (7.4-11.4); MONOCYTES # (AUTO) 0.9 10^3/uL (0.0-1.0); MONOCYTES % (AUTO) 6.8 %; NEUTROPHILS # (AUTO) 10.9 10^3/uL (1.5-6.6); NEUTROPHILS % (AUTO) 81.7 %; PLT - PLATELET COUNT 369 10^3/uL (130-450); RED BLOOD COUNT 4.21 10^6/uL (4.70-6.10); RED CELL DISTRIBUTION WIDTH 13.7 % (12.0-15.0); WHITE BLOOD COUNT 13.3 x10^3/uL (4.8-10.8)
== END 2019-08-03 13:54 | disposition home or self-care (01) ==
LOC: LAB 13:53
PROVIDERS: ATTEND Internal Medicine
DX: D64.9 Anemia, unspecified (principal)
CPT/HCPCS: 36415; 85025

== ENCOUNTER 2019-09-08 11:48 | Emergency (ER) | payer MEDICARE ==
[2019-09-08 13:22] LABS: BASOPHILS # (AUTO) 0.1 10^3/uL (0.0-0.1); BASOPHILS % (AUTO) 0.9 %; EOSINOPHILS # (AUTO) 0.2 10^3/uL (0.0-0.7); EOSINOPHILS % (AUTO) 2.2 %; HGB - HEMOGLOBIN 11.4 g/dL (14.0-18.0); LYMPHOCYTES # (AUTO) 1.7 10^3/uL (1.5-3.5); LYMPHOCYTES % (AUTO) 20.1 %; MEAN CORPUSCULAR HEMOGLOBIN 25.6 pg (27.0-31.0); MEAN CORPUSCULAR HGB CONC 29.5 g/dL (32.0-36.0); MONOCYTES # (AUTO) 0.8 10^3/uL (0.0-1.0); MONOCYTES % (AUTO) 9.3 %; NEUTROPHILS # (AUTO) 5.7 10^3/uL (1.5-6.6); PLT - PLATELET COUNT 273 10^3/uL (130-450); RED BLOOD COUNT 4.45 10^6/uL (4.70-6.10); RED CELL DISTRIBUTION WIDTH 14.3 % (12.0-15.0); WHITE BLOOD COUNT 8.5 x10^3/uL (4.8-10.8)
[2019-09-08 13:36] LABS: ALBUMIN 4.2 g/dL (3.2-5.5); ALBUMIN/GLOBULIN RATIO 1.2 (1.0-2.2); BILIRUBIN,TOTAL 0.7 mg/dL (0.2-1.0); CALCIUM 8.8 mg/dL (8.5-10.3); CREATININE 0.9 mg/dL (0.6-1.2); TOTAL PROTEIN 7.6 g/dL (6.7-8.2)
--- NOTE | 2019-09-08 13:40 | XRAY Report ---
Reason: Chest Pain Procedure Date: 09/08/2019 Accession Number: [id number] / [id number] Procedure: XR - Chest 1 View X-Ray CPT Code: 45157 Final Report FULL RESULT: EXAM: CHEST RADIOGRAPHY EXAM DATE: 09/08/2019 01:02 PM. CLINICAL HISTORY: Chest pain. COMPARISON: CHEST 2 VIEW 07/19/2019 4:36 PM. TECHNIQUE: 1 view. FINDINGS: Lungs/Pleura: No focal opacities evident. No pleural effusion. No pneumothorax. Mediastinum: Borderline cardiomegaly. Previous median sternal splitting. Other: Previous cervical spine surgery. IMPRESSION: 1. Previous median sternal splitting. Borderline cardiomegaly, clear lungs. RADIA
--- NOTE | 2019-09-08 14:21 | ED Physician Documentation ---
PD HPI URI - Stated complaint Stated Complaint: SOA/CP - Chief complaint Chief Complaint: Resp - History obtained from History obtained from: Patient - History of Present Illness Timing - onset: How many weeks ago (3 weeks on and off, more consistent cough and sputum the past week.) Timing duration: Weeks Timing details: Gradual onset, Still present Associated symptoms: Productive cough, Chest pain (with coughing, hurts parasternal and left ribs), Dyspnea. No: Fever, Chills Contributing factors: COPD / asthma. No: Sick contact, Travel, Immunocompromised Similar symptoms before: Diagnosis (bronchitis and pneiumonia in the past) Recently seen: Not recently seen (says has appt with PMD in 3 days.) Review of Systems Constitutional: denies: Fever, Chills, Myalgias Nose: denies: Rhinorrhea / runny nose, Congestion Throat: denies: Sore throat Cardiac: reports: Chest pain / pressure. denies: Palpitations, Pedal edema, Calf pain Respiratory: reports: Dyspnea, Cough, Wheezing GI: denies: Abdominal Pain, Nausea, Vomiting Musculoskeletal: reports: Back pain (chronic and had run out of T#3 that he usually takes, and will see PMD in few days.) PD PAST MEDICAL HISTORY - Past Medical History Cardiovascular: Hypertension, Coronary artery disease, [place], Atrial fibrillation Respiratory: Asthma, COPD Endocrine/Autoimmune: None GI: GERD, Hiatal hernia, Diverticulitis : Benign prostate hypertrophy, Nocturia HEENT: Chronic sinusitis, Chronic hearing loss Psych: Depression, Anxiety, Claustrophobia Musculoskeletal: Osteoarthritis, Chronic back pain, Other Derm: Herpes zoster, Other - Past Surgical History Past Surgical History: Yes General: Cholecystectomy, EGD Ortho: Hip replacement, Knee replacement, Arthroscopic surgery, Other Cardiovascular: CABG, Other HEENT: Other - Present Medications Home Medications: Ambulatory Orders Medication Instructions Recorded Confirmed Lorazepam [Ativan] 1 mg PO TID PRN 01/03/17 08/11/17 Levalbuterol Tartrate [Xopenex Hfa] 2 puffs INH Q4H PRN 06/21/17 08/11/17 traZODone [Desyrel] 300 mg PO QPM 06/21/17 08/11/17 Metoprolol Tartrate 100 mg PO BID 08/01/17 08/11/17 Furosemide 20 mg PO DAILY #30 tablet 08/05/17 08/11/17 Ibuprofen [Motrin] 600 mg PO Q6HR tablet 08/05/17 08/11/17 Spironolactone 50 mg PO BID #60 tablet 08/05/17 08/11/17 Doxycycline Hyclate 100 mg PO BID 28 Days #56 capsule 08/13/17 Oxycodone HCl/Acetaminophen 1 each PO PRN PRN #20 tablet 08/13/17 [Oxycodone-Acetaminophen 5-325] oxyCODONE/ACET 5/325 [Percocet 5 1 tab PO Q6HR PRN #20 tablet 08/13/17 mg/325 mg] Omeprazole 20 mg PO DAILY #30 capsule. 07/06/19 Sucralfate [Carafate] 1 gm PO ACHS #60 tablet 07/06/19 Ferrous Sulfate 325 mg PO DAILY #30 tablet 07/14/19 Oxycodone HCl/Acetaminophen 1 each PO Q4H PRN #12 tablet 07/14/19 [Oxycodon-Acetaminophen 7.5-325] Azithromycin 1 tab PO DAILY #4 tablet 07/19/19 Beclomethasone 40 Mcg [Qvar 40] 2 puffs INH BID #1 inhaler 07/19/19 Acetaminophen/Cod 300/30 [Tylenol 1 each PO TID #10 tablet 09/08/19 #3] Benzonatate [Tessalon Perle] 100 mg PO TID PRN #20 capsule 09/08/19 Doxycycline Monohydrate 100 mg PO BID #14 tablet 09/08/19 Ipratropium [Atrovent] 0.5 mg INH Q6H #30 neb 09/08/19 dexAMETHasone [Decadron] 4 mg PO DAILY #5 tablet 09/08/19 - Allergies Allergies/Adverse Reactions: Allergies Allergy/AdvReac Type Severity Reaction Status Date / Time albuterol Allergy Severe heart Verified 09/08/19 11:53 palpatation pantoprazole sodium * Allergy Intermediate Nausea Verified 09/08/19 11:53 [From Protonix] Ydfffhm-[id number]-Lih Reductase Allergy Intermediate Unknown Verified 09/08/19 11:53 Inhibitor Sulfa (Sulfonamide Allergy Intermediate Rash Verified 09/08/19 11:53 Antibiotics) latex Allergy Mild Itching Verified 09/08/19 11:53 diazepam [From Valium] AdvReac Severe DELIRIUM Verified 09/08/19 11:53 hydrocodone [From [place]] AdvReac Anxiety Verified 09/08/19 11:53 morphine AdvReac Anxiety Verified 09/08/19 11:53 - Social History Does the pt smoke?: No Smoking Status: Never smoker Does the pt drink ETOH?: Yes Does the pt have substance abuse?: No - Immunizations Immunizations are current?: Yes - POLST Patient has POLST: No POLST Status: Full Code PD ED PE NORMAL - Vitals Vital signs reviewed: Yes - General General: Alert and oriented X 3, No acute distress, Well developed/nourished - HEENT HEENT: Pharynx benign - Neck Neck: Supple, no meningeal sign, No adenopathy - Cardiac Cardiac: RRR, No murmur - Respiratory Respiratory: No: Clear bilaterally (some wheezing noted diffusely; no coarse sounds. ) - Abdomen Abdomen: Soft, Non tender - Derm Derm: Normal color, Warm and dry - Extremities Extremities: No tenderness to palpate, Normal ROM s pain, No edema, No calf tenderness / cord - Neuro Neuro: Alert and oriented X 3, No motor deficit, Normal speech Results - Vitals Vitals: Vital Signs - 24 hr 09/08/19 09/08/19 09/08/19 11:53 14:30 15:12 Temperature 36.6 C 36.1 C L Heart Rate 83 75 72 Respiratory 14 16 14 Rate Blood Pressure 119/91 H 119/89 H O2 Saturation 97 96 09/08/19 15:41 Temperature Heart Rate 78 Respiratory 18 Rate Blood Pressure 148/82 H O2 Saturation 96 Oxygen O2 Source [With Activity] Room air O2 Source Room air - EKG (time done) 12:03 Rate: Rate (enter#) (73) Rhythm: NSR [place]: Normal Intervals: Normal [place] QRS: Normal Ischemia: Normal ST segments, Other (PVCs noted occasionally). No: ST elevation c/w ischemia, ST depression - Labs Labs: Laboratory Tests 09/08/19 09/08/19 09/08/19 13:00 13:00 13:00 WBC 8.5 RBC 4.45 L Hgb 11.4 L Hct 38.7 L MCV 87.0 MCH 25.6 L MCHC 29.5 L RDW 14.3 Plt Count 273 MPV 9.0 Neut # (Auto) 5.7 Lymph # (Auto) 1.7 [place] # (Auto) 0.8 Eos # (Auto) 0.2 Baso # (Auto) 0.1 Absolute Nucleated RBC 0.00 Nucleated RBC % 0.0 Sodium 137 Potassium 4.1 Chloride 102 Carbon Dioxide 24 Anion Gap 11.0 BUN 14 Creatinine 0.9 Estimated GFR (MDRD) 82 L Glucose 111 H Calcium 8.8 Total Bilirubin 0.7 AST 22 ALT 19 Alkaline Phosphatase 53 Troponin I High Sens 8.5 Total Protein 7.6 Albumin 4.2 Globulin 3.4 Albumin/Globulin Ratio 1.2 Lipase 30 - Rads (name of study) chest xray Radiology: Prelim report reviewed (prior sternotomy. no infiltrates. ), See rad report PD MEDICAL DECISION MAKING - ED course Complexity details: considered differential (COPD with exac, and cough, will treat as possible bacterial cause. ), d/w patient Departure - Departure Disposition: 01 Home, Self Care Clinical Impression: Bronchitis Exacerbation of asthma Qualifiers: Asthma severity: moderate Asthma persistence: persistent Qualified Code(s): J45.41 - Moderate persistent asthma with (acute) exacerbation Condition: Stable Record reviewed to determine appropriate education?: Yes Follow-Up: Aureliano Webb MD [Primary Care Provider] - Prescriptions: Acetaminophen/Cod 300/30 [Tylenol #3] 1 each PO TID #10 tablet Benzonatate [Tessalon Perle] 100 mg PO TID PRN #20 capsule PRN Reason: Cough dexAMETHasone [Decadron] 4 mg PO DAILY #5 tablet Doxycycline Monohydrate 100 mg PO BID #14 tablet Ipratropium [Atrovent] 0.5 mg INH Q6H #30 neb Comments: Stay well-hydrated. Continue your leave albuterol nebulizer 3 or 4 times a day. To it add ipratropium (Atrovent) with it for the next 7 to 10 days to get a combination effect. For concern of bronchitis, add Decadron steroid daily for 5 more days and doxycycline antibiotic twice daily for a week. Use Tessalon if needed for cough suppression. Continue your other usual medications. This would include your Tylenol 3 which I wrote a few of until your refill. This is an exceptional prescription as we do not usually provide prescriptions for gaps in your medication like that. Discharge Date/Time: 09/08/19 16:02
[2019-09-08] MEDS ORDERED: BENZONATATE 100 MG CAPSULE PO STA (14:45)
[2019-09-08] MEDS ORDERED: DEXAMETHASONE 10 MG/ML VIAL PO STA (14:45)
[2019-09-08] MEDS ORDERED: ACETAMINOPHEN/CODEINE 300 MG/30 MG TABLET PO STA (14:45)
[2019-09-08] MEDS ORDERED: IPRATROPIUM/ALBUTEROL 3 ML NEB INH STA (14:45)
[2019-09-08] MEDS ORDERED: CHERRY SYRUP 10 ML UDC PO ONE (14:45)
[2019-09-08] MEDS ORDERED: DOXYCYCLINE 100 MG TABLET PO STA (14:49)
[2019-09-08] MEDS ORDERED: IPRATROPIUM 0.2 MG/ML NEB INH STA (15:06)
[2019-09-08] MEDS ORDERED: LEVALBUTEROL 1.25 MG/3 ML NEB INH STA (15:06)
[2019-09-08 15:42] VITALS: BP 148/82
[2019-09-08] MEDS ORDERED: hydrOXYzine PAMOATE 25 MG CAPSULE PO STA (15:47)
== END 2019-09-08 16:02 | disposition home or self-care (01) ==
LOC: ED 11:48
DX: J44.9 Chronic obstructive pulmonary disease, unspecified (principal); J45.41 Moderate persistent asthma with (acute) exacerbation; I49.3 Ventricular premature depolarization; I10 Essential (primary) hypertension; I25.10 Atherosclerotic heart disease of native coronary artery without angina pectoris; Z95.1 Presence of aortocoronary bypass graft; I25.2 Old myocardial infarction
CPT/HCPCS: 36415; 71045; 80053; 83690; 84484; 85025; 93005; 94640; 99284; A9270

== ENCOUNTER 2019-09-28 08:14 | Emergency (ER) | payer MEDICARE ==
--- NOTE | 2019-09-28 08:37 | ED Physician Documentation ---
PD HPI UPPER EXT INJURY - Stated complaint Stated Complaint: LEFT ARM PX, DIZZINESS - Chief complaint Chief Complaint: Ext Problem - History obtained from History obtained from: Patient - History of Present Illness Location: Left, Shoulder, Other (lateral mid ribs) Type of injury: Fall (going down stairs with laundry basket, slipped on slippers and fell) Where injury occurred: Home Timing - onset: Today Timing - details: Abrupt onset, Still present Worsened by: Moving (moving shoulder and torsion of chest, also hurts for deep breathing.), Palpating Associated symptoms: No: Weakness, Numbness Similar symptoms before: Has not had sx before Review of Systems Constitutional: denies: Fever, Chills Cardiac: reports: Chest pain / pressure (left lateral chestwall) Respiratory: reports: Dyspnea. denies: Cough, Wheezing GI: denies: Abdominal Pain Musculoskeletal: denies: Neck pain, Back pain Neurologic: reports: Generalized weakness. denies: Focal weakness, Numbness, Near syncope, Altered mental status, Headache, Head injury PD PAST MEDICAL HISTORY - Past Medical History Cardiovascular: Hypertension, Coronary artery disease, CT, Atrial fibrillation Respiratory: Asthma, COPD Neuro: None Endocrine/Autoimmune: None GI: GERD, Hiatal hernia, Diverticulitis : Benign prostate hypertrophy, Nocturia HEENT: Chronic sinusitis, Chronic hearing loss Psych: Depression, Anxiety, Claustrophobia Musculoskeletal: Osteoarthritis, Chronic back pain, Other Derm: Herpes zoster, Other - Past Surgical History Past Surgical History: Yes General: Cholecystectomy, EGD Ortho: Hip replacement, Knee replacement, Arthroscopic surgery, Other Cardiovascular: CABG, Other HEENT: Other - Present Medications Home Medications: Ambulatory Orders Medication Instructions Recorded Confirmed Lorazepam [Ativan] 1 mg PO TID PRN 01/03/17 08/11/17 Levalbuterol Tartrate [Xopenex Hfa] 2 puffs INH Q4H PRN 06/21/17 08/11/17 traZODone [Desyrel] 300 mg PO QPM 06/21/17 08/11/17 Metoprolol Tartrate 100 mg PO BID 08/01/17 08/11/17 Furosemide 20 mg PO DAILY #30 tablet 08/05/17 08/11/17 Ibuprofen [Motrin] 600 mg PO Q6HR tablet 08/05/17 08/11/17 Spironolactone 50 mg PO BID #60 tablet 08/05/17 08/11/17 Doxycycline Hyclate 100 mg PO BID 28 Days #56 capsule 08/13/17 Oxycodone HCl/Acetaminophen 1 each PO PRN PRN #20 tablet 08/13/17 [Oxycodone-Acetaminophen 5-325] oxyCODONE/ACET 5/325 [Percocet 5 1 tab PO Q6HR PRN #20 tablet 08/13/17 mg/325 mg] Omeprazole 20 mg PO DAILY #30 capsule. 07/06/19 Sucralfate [Carafate] 1 gm PO ACHS #60 tablet 07/06/19 Ferrous Sulfate 325 mg PO DAILY #30 tablet 07/14/19 Oxycodone HCl/Acetaminophen 1 each PO Q4H PRN #12 tablet 07/14/19 [Oxycodon-Acetaminophen 7.5-325] Azithromycin 1 tab PO DAILY #4 tablet 07/19/19 Beclomethasone 40 Mcg [Qvar 40] 2 puffs INH BID #1 inhaler 07/19/19 Acetaminophen/Cod 300/30 [Tylenol 1 each PO TID #10 tablet 09/08/19 #3] Benzonatate [Tessalon Perle] 100 mg PO TID PRN #20 capsule 09/08/19 Doxycycline Monohydrate 100 mg PO BID #14 tablet 09/08/19 Ipratropium [Atrovent] 0.5 mg INH Q6H #30 neb 09/08/19 dexAMETHasone [Decadron] 4 mg PO DAILY #5 tablet 09/08/19 Acetaminophen/Cod 300/30 [Tylenol 1 each PO Q6H PRN #20 tablet 09/28/19 #3] - Allergies Allergies/Adverse Reactions: Allergies Allergy/AdvReac Type Severity Reaction Status Date / Time albuterol Allergy Severe heart Verified 09/08/19 11:53 palpatation pantoprazole sodium * Allergy Intermediate Nausea Verified 09/08/19 11:53 [From Protonix] Kounkkz-Nbj-Qbx Reductase Allergy Intermediate Unknown Verified 09/08/19 11:53 Inhibitor Sulfa (Sulfonamide Allergy Intermediate Rash Verified 09/08/19 11:53 Antibiotics) latex Allergy Mild Itching Verified 09/08/19 11:53 diazepam [From Valium] AdvReac Severe DELIRIUM Verified 09/08/19 11:53 hydrocodone [From [place]] AdvReac Anxiety Verified 09/08/19 11:53 morphine AdvReac Anxiety Verified 09/08/19 11:53 - Social History Does the pt smoke?: No Smoking Status: Never smoker Does the pt drink ETOH?: Yes Does the pt have substance abuse?: No - Immunizations Immunizations are current?: Yes - POLST Patient has POLST: No POLST Status: Full Code PD ED PE NORMAL - Vitals Vital signs reviewed: Yes - General General: Alert and oriented X 3, Well developed/nourished - HEENT HEENT: Atraumatic, Moist mucous membranes - Neck Neck: Supple, no meningeal sign, No bony TTP, No adenopathy - Cardiac Cardiac: RRR, No murmur - Respiratory Respiratory: Clear bilaterally, Other (left lateral chest with tenderness, no deformity nor crepitance, left midaxillary line. ) - Abdomen Abdomen: Soft, Non tender - Derm Derm: Normal color, Warm and dry - Extremities Extremities: Other (left shoulder tender posteriorly without deformity. Rotator cuff movments are strong, though some of them cause pain but no laxity.) - Neuro Neuro: Alert and oriented X 3, No motor deficit, No sensory deficit Results - Vitals Vitals: Vital Signs - 24 hr 09/28/19 09/28/19 08:24 11:17 Heart Rate 71 76 Respiratory 18 16 Rate Blood Pressure 134/70 H 110/72 O2 Saturation 96 99 Oxygen O2 Source [With Activity] Room air O2 Source Room air - Rads (name of study) left shoulder Radiology: Prelim report reviewed (prior clavicle surgery; no fractures), See rad report chestx ray Radiology: Prelim report reviewed (contour defect 7th and 8th ribs c/w nondisplaced linear fractures.), See rad report PD MEDICAL DECISION MAKING - ED course Complexity details: considered differential (He does have a history of narcotic abuse in the past. However he does have radiology report of rib fractures. As such I do feel there is an acute painful injury. His shoulder is hurting as well. I discussed with him our concern in the ER that he has frequent visits for pain conditions. It is a flag for us and generally would be reluctant to prescribe narcotics for him and should come for his primary. However he does have an acute injury. His Milana is with him and says she will watch him regarding medication use.), d/w patient Departure - Departure Disposition: 01 Home, Self Care Clinical Impression: Accidental fall Qualifiers: Encounter type: initial encounter Qualified Code(s): W19.XXXA - Unspecified fall, initial encounter Left shoulder strain Qualifiers: Encounter type: initial encounter Qualified Code(s): S46.912A - Strain of unspecified muscle, fascia and tendon at shoulder and upper arm level, left arm, initial encounter Rib fracture Qualifiers: Encounter type: initial encounter Rib fracture type: single rib Fracture type: closed Laterality: left Qualified Code(s): S22.32XA - Fracture of one rib, left side, initial encounter for closed fracture Condition: Stable Record reviewed to determine appropriate education?: Yes Instructions: ED Fx Rib, ED Sprain Shoulder Follow-Up: Aureliano Webb MD [Primary Care Provider] - Prescriptions: Acetaminophen/Cod 300/30 [Tylenol #3] 1 each PO Q6H PRN #20 tablet PRN Reason: Pain Comments: Use your sling at home as needed for discomfort of the shoulder and arm. Activity as able. The radiology report says there may be a nondisplaced fracture of the seventh or eighth rib. As such I will write a prescription for some pain medicines for the short-term. Follow-up with your primary care early next week regarding recheck and further medications. Discharge Date/Time: 09/28/19 11:17
[2019-09-28] MEDS ORDERED: oxyCODONE 5 MG TABLET PO STA (08:51)
--- NOTE | 2019-09-28 09:27 | XRAY Report ---
Reason: fall to left shoulder and ribs Procedure Date: 09/28/2019 Accession Number: [id number] / [id number] Procedure: XR - Shoulder 3 View LT CPT Code: Final Report FULL RESULT: EXAM: LEFT SHOULDER RADIOGRAPHY EXAM DATE: 09/28/2019 09:12 AM. CLINICAL HISTORY: Fall to left shoulder and ribs. COMPARISON: SHOULDER 3 VIEW LT 09/28/2019 9:00 AM. TECHNIQUE: 3 views. FINDINGS: Bones: Normal. No fracture or bone lesion. Joints: Postop change his AC joint. Glenohumeral osteophyte. Soft tissues: The visualized hemithorax is unremarkable. No soft tissue swelling. IMPRESSION: LUZ MARINA RADIA
--- NOTE | 2019-09-28 09:30 | XRAY Report ---
Reason: fall to left shoulder/ribs Procedure Date: 09/28/2019 Accession Number: [id number] / [id number] Procedure: XR - Ribs w/PA Chest LT CPT Code: Final Report FULL RESULT: EXAM: LEFT RIB RADIOGRAPHY EXAM DATE: 09/28/2019 09:13 AM. CLINICAL HISTORY: Fall to left shoulder/ribs. COMPARISON: RIBS W/PA CHEST LT 09/28/2019 9:00 AM CHEST 1 VIEW 09/08/2019 1:00 PM. TECHNIQUE: 1 view of the chest and 2 views of the ribs. FINDINGS: Bones: Left seventh and eighth rib deformity may represent nondisplaced rib fracture Lungs: No focal opacities. No pneumothorax. No pleural effusions. Mediastinum: Poststernotomy heart size normal ectatic aorta Other: Post cervical spine fusion IMPRESSION: Possible left seventh and eighth rib nondisplaced fracture No active cardiopulmonary disease RADIA
[2019-09-28 11:23] VITALS: BP 110/72
== END 2019-09-28 11:17 | disposition home or self-care (01) ==
LOC: ED 08:14
DX: S22.42XA Multiple fractures of ribs, left side, initial encounter for closed fracture (principal); S43.402A Unspecified sprain of left shoulder joint, initial encounter; W10.8XXA Fall (on) (from) other stairs and steps, initial encounter; Y93.E2 Activity, laundry; Y92.008 Other place in unspecified non-institutional (private) residence as the place of occurrence of the external cause; F11.10 Opioid abuse, uncomplicated; G89.29 Other chronic pain; I10 Essential (primary) hypertension; I25.10 Atherosclerotic heart disease of native coronary artery without angina pectoris; M19.90 Unspecified osteoarthritis, unspecified site; M54.9 Dorsalgia, unspecified; I48.91 Unspecified atrial fibrillation; J44.9 Chronic obstructive pulmonary disease, unspecified; N40.1 Benign prostatic hyperplasia with lower urinary tract symptoms; R35.1 Nocturia; H91.90 Unspecified hearing loss, unspecified ear; F32.9 Major depressive disorder, single episode, unspecified; F41.9 Anxiety disorder, unspecified; F40.240 Claustrophobia; Z96.649 Presence of unspecified artificial hip joint; Z96.659 Presence of unspecified artificial knee joint; Z95.1 Presence of aortocoronary bypass graft; Z79.51 Long term (current) use of inhaled steroids; I25.2 Old myocardial infarction; Z79.1 Long term (current) use of non-steroidal anti-inflammatories (NSAID); Z79.891 Long term (current) use of opiate analgesic; Z79.52 Long term (current) use of systemic steroids
CPT/HCPCS: 71101; 73030; 99284; A9270

== ENCOUNTER 2020-02-28 04:55 | Emergency (ER) | payer MEDICARE ==
--- NOTE | 2020-02-28 05:01 | ED Physician Documentation ---
History of Present Illness - Stated complaint Stated Complaint: COUGH/CAMARENA/NAUSEA - History obtained from History obtained from: Patient - History of Present Illness Timing: How many days ago (4) Pain level now: 8 Improved by: nothing Worsened by: coughing excerbates CAMARENA - Additonal information Additional information: c/o 4 days of cough, productive of thick, yellow sputum. He recently finished course of zithromax which seemed to eliminate symptoms but they have returned x 4 days. Also c/o wheezing, ADRIAN, generalized headache with coughing. Review of Systems Constitutional: denies: Fever, Chills, Sweats Throat: denies: Sore throat Cardiac: reports: Reviewed and negative Respiratory: reports: Dyspnea, Cough, Wheezing GI: reports: Reviewed and negative Neurologic: reports: Headache PD PAST MEDICAL HISTORY - Past Medical History Cardiovascular: Hypertension, Coronary artery disease, [place], Atrial fibrillation Respiratory: Asthma, COPD Neuro: None Endocrine/Autoimmune: None GI: GERD, Hiatal hernia, Diverticulitis : Benign prostate hypertrophy, Nocturia HEENT: Chronic sinusitis, Chronic hearing loss Psych: Depression, Anxiety, Claustrophobia Musculoskeletal: Osteoarthritis, Chronic back pain, Other Derm: Herpes zoster, Other - Past Surgical History Past Surgical History: Yes General: Cholecystectomy, EGD Ortho: Hip replacement, Knee replacement, Arthroscopic surgery, Other Cardiovascular: CABG, Other HEENT: Other - Present Medications Home Medications: Ambulatory Orders Medication Instructions Recorded Confirmed Lorazepam [Ativan] 1 mg PO TID PRN 01/03/17 08/11/17 Levalbuterol Tartrate [Xopenex Hfa] 2 puffs INH Q4H PRN 06/21/17 08/11/17 traZODone [Desyrel] 300 mg PO QPM 06/21/17 08/11/17 Metoprolol Tartrate 100 mg PO BID 08/01/17 08/11/17 Furosemide 20 mg PO DAILY #30 tablet 08/05/17 08/11/17 Ibuprofen [Motrin] 600 mg PO Q6HR tablet 08/05/17 08/11/17 Spironolactone 50 mg PO BID #60 tablet 08/05/17 08/11/17 Doxycycline Hyclate 100 mg PO BID 28 Days #56 capsule 08/13/17 Oxycodone HCl/Acetaminophen 1 each PO PRN PRN #20 tablet 08/13/17 [Oxycodone-Acetaminophen 5-325] oxyCODONE/ACET 5/325 [Percocet 5 1 tab PO Q6HR PRN #20 tablet 08/13/17 mg/325 mg] Omeprazole 20 mg PO DAILY #30 capsule. 07/06/19 Sucralfate [Carafate] 1 gm PO ACHS #60 tablet 07/06/19 Ferrous Sulfate 325 mg PO DAILY #30 tablet 07/14/19 Oxycodone HCl/Acetaminophen 1 each PO Q4H PRN #12 tablet 07/14/19 [Oxycodon-Acetaminophen 7.5-325] Azithromycin 1 tab PO DAILY #4 tablet 07/19/19 Beclomethasone 40 Mcg [Qvar 40] 2 puffs INH BID #1 inhaler 07/19/19 Acetaminophen/Cod 300/30 [Tylenol 1 each PO TID #10 tablet 09/08/19 #3] Benzonatate [Tessalon Perle] 100 mg PO TID PRN #20 capsule 09/08/19 Doxycycline Monohydrate 100 mg PO BID #14 tablet 09/08/19 Ipratropium [Atrovent] 0.5 mg INH Q6H #30 neb 09/08/19 dexAMETHasone [Decadron] 4 mg PO DAILY #5 tablet 09/08/19 Acetaminophen/Cod 300/30 [Tylenol 1 each PO Q6H PRN #20 tablet 09/28/19 #3] Amox/Clav 875/125 [Augmentin] 1 each PO Q12H #14 tablet 02/28/20 predniSONE [Prednisone] 40 mg PO DAILY 4 Days #8 tablet 02/28/20 - Allergies Allergies/Adverse Reactions: Allergies Allergy/AdvReac Type Severity Reaction Status Date / Time albuterol Allergy Severe heart Verified 02/28/20 05:10 palpatation pantoprazole sodium * Allergy Intermediate Nausea Verified 02/28/20 05:10 [From Protonix] Hqvlbqo-Jys-Cms Reductase Allergy Intermediate Unknown Verified 02/28/20 05:10 Inhibitor Sulfa (Sulfonamide Allergy Intermediate Rash Verified 02/28/20 05:10 Antibiotics) latex Allergy Mild Itching Verified 02/28/20 05:10 diazepam [From Valium] AdvReac Severe DELIRIUM Verified 02/28/20 05:10 hydrocodone [From [place]] AdvReac Anxiety Verified 02/28/20 05:10 morphine AdvReac Anxiety Verified 02/28/20 05:10 - Social History Does the pt smoke?: No Smoking Status: Never smoker Does the pt drink ETOH?: Yes Does the pt have substance abuse?: No - Immunizations Immunizations are current?: Yes - POLST Patient has POLST: No POLST Status: Full Code PD ED PE NORMAL - Vitals Vital signs reviewed: Yes - General General: Alert and oriented X 3, No acute distress (frequent productive cough during H+P), Well developed/nourished - HEENT HEENT: Moist mucous membranes - Neck Neck: Supple, no meningeal sign - Cardiac Cardiac: RRR, No murmur - Respiratory Respiratory: No respiratory distress - Abdomen Abdomen: Soft, Non tender - Neuro Neuro: Alert and oriented X 3, custodial worker 2-12 intact, No motor deficit, No sensory deficit, Normal speech Eye Opening: Spontaneous Motor: Obeys Commands Verbal: Oriented GCS Score: 15 PD ED PE EXPANDED - Respiratory Respiratory: Wheezing (bilateral mid/end expiratory wheezing), Decreased breath sounds. No: Rhonchi Results - Vitals Vitals: Oxygen O2 Source [With Activity] Room air O2 Source Room air - Rads (name of study) chest xray Radiology: Prelim report reviewed, See rad report PD MEDICAL DECISION MAKING - ED course Complexity details: reviewed old records, reviewed results, re-evaluated patient, considered differential, d/w patient ED course: on reevaluation after neb treatments and PO steroid, patient is in NAD, significantly less coughing noted during reevaluation. Lungs have good air flow with trace end-expiratory wheezing bilaterally. Patient reports feeling improved and comfortable with discharge at this time Departure - Departure Disposition: 01 Home, Self Care Clinical Impression: Bronchitis, COPD (chronic obstructive pulmonary disease) Condition: Good Instructions: ED COPD Flare Follow-Up: Aureliano Webb MD [Primary Care Provider] - Prescriptions: Amox/Clav 875/125 [Augmentin] 1 each PO Q12H #14 tablet predniSONE [Prednisone] 40 mg PO DAILY 4 Days #8 tablet Discharge Date/Time: 02/28/20 06:58
[2020-02-28] MEDS ORDERED: LEVALBUTEROL 1.25 MG/3 ML NEB INH STA (05:26)
[2020-02-28] MEDS ORDERED: predniSONE 20 MG TABLET PO STA (05:27)
[2020-02-28] MEDS ORDERED: IPRATROPIUM 0.2 MG/ML NEB INH STA (05:27)
[2020-02-28] MEDS ORDERED: traMADol 50 MG TABLET PO STA (05:27)
[2020-02-28] MEDS ORDERED: ONDANSETRON ODT 4 MG TABLET TL STA (05:52)
[2020-02-28] MEDS ORDERED: AMOX/CLAV 875 MG/125 MG TABLET PO STA (06:48)
[2020-02-28 06:57] VITALS: BP 125/60
--- NOTE | 2020-02-28 09:05 | XRAY Report ---
PROCEDURE: Chest 2 View X-Ray INDICATIONS: cough, dyspnea TECHNIQUE: 2 view(s) of the chest. COMPARISON: None. FINDINGS: Surgical changes and devices: Status post CABG procedure. Cervical thoracic spine fixation hardware.. Lungs and pleura: No pleural effusions or pneumothorax. Lungs are clear. Mediastinum: Mediastinal contours are normal. Heart size is normal. Bones and chest wall: No suspicious bony abnormalities. Soft tissues appear unremarkable. IMPRESSION: No acute cardiopulmonary disease process. Reviewed by: Kat Dorantes MD, PhD on 02/28/2020 9:03 AM PDT Approved by: Kat Dorantes MD, PhD on 02/28/2020 9:03 AM PDT Station ID: [id number]
== END 2020-02-28 06:58 | disposition home or self-care (01) ==
LOC: ED 04:55
DX: J44.0 Chronic obstructive pulmonary disease with (acute) lower respiratory infection (principal); I10 Essential (primary) hypertension
CPT/HCPCS: 71046; 94640; 94664; 99283; 99284; A9270; J7512; Q0162

== ENCOUNTER 2020-05-26 11:14 | Outpatient (CLI) | payer MEDICARE ==
--- NOTE | 2020-05-26 15:46 | DEXA Report ---
PROCEDURE: Dexa Spine and/or Hip INDICATIONS: USP SYSTEMIS STEROID USE TECHNIQUE: Dual energy x-ray absorptiometry (DXA) was performed on a [employer] System. Regions measur ed are the AP Spine, femoral neck, and if needed forearm. COMPARISON: None. FINDINGS: Lumbar Spine: Bone Mineral Density 1.617 g/cm/cm,T score 3.2, within normal limits Left forearm: Bone Mineral Density 0.790 g/cm/cm, T score 0.6, within normal limits (T score greater or equal to -1.0: NORMAL) (T score from -1.1 to -2.4: OSTEOPENIA) (T score less than or equal to -2.5 to: OSTEOPOROSIS) Impression: No visualized osteopenia or osteoporosis. Patients with diagnosis of osteoporosis or osteopenia should have regular bone mineral density assess ment. For those eligible for Medicare, routine testing is allowed once every 2 years. Testing frequ ency can be increased for patients who have rapidly progressing disease or for those who are receivin g medical therapy to restore bone mass. Reviewed by: Zeina Saavedra MD on 05/26/2020 3:44 PM PDT Approved by: Zeina Saavedra MD on 05/26/2020 3:44 PM PDT Station ID: [id number]
== END 2020-05-26 11:15 | disposition home or self-care (01) ==
LOC: DI 11:14
PROVIDERS: ATTEND Internal Medicine
DX: Z79.52 Long term (current) use of systemic steroids (principal)
CPT/HCPCS: 77080; 77081

== ENCOUNTER 2020-07-13 06:11 | Emergency (ER) | payer MEDICARE ==
[2020-07-13 06:41] LABS: BASOPHILS # (AUTO) 0.1 10^3/uL (0.0-0.1); BASOPHILS % (AUTO) 0.7 %; EOSINOPHILS # (AUTO) 0.2 10^3/uL (0.0-0.7); EOSINOPHILS % (AUTO) 1.4 %; HGB - HEMOGLOBIN 15.1 g/dL (14.0-18.0); LYMPHOCYTES # (AUTO) 1.4 10^3/uL (1.5-3.5); LYMPHOCYTES % (AUTO) 13.5 %; MEAN CORPUSCULAR HGB CONC 33.3 g/dL (32.0-36.0); MEAN CORPUSCULAR VOLUME 89.9 fL (80.0-94.0); MONOCYTES # (AUTO) 0.9 10^3/uL (0.0-1.0); MONOCYTES % (AUTO) 8.5 %; NEUTROPHILS # (AUTO) 8.1 10^3/uL (1.5-6.6); NEUTROPHILS % (AUTO) 75.5 %; PLT - PLATELET COUNT 301 10^3/uL (130-450); RED BLOOD COUNT 5.04 10^6/uL (4.70-6.10); RED CELL DISTRIBUTION WIDTH 12.5 % (12.0-15.0); WHITE BLOOD COUNT 10.7 x10^3/uL (4.8-10.8)
[2020-07-13 06:48] LABS: BILIRUBIN,URINE NEGATIVE (NEGATIVE); GLUCOSE, URINE (UA) 500 mg/dL (NEGATIVE); KETONES,URINE (UA) 15 mg/dL (NEGATIVE); LEUKOCYTE ESTERASE, URINE NEGATIVE (NEGATIVE); NITRITE,URINE NEGATIVE (NEGATIVE); OCCULT BLOOD,URINE TRACE-LYSE (NEGATIVE); PROTEIN,URINE TRACE mg/dL (NEGATIVE); UROBILINOGEN,URINE 0.2 (NORMAL) E.U./dL (NORMAL)
[2020-07-13 06:53] LABS: CLARITY,URINE CLEAR (CLEAR)
[2020-07-13] MEDS ORDERED: FAMOTIDINE 20 MG/2 ML VIAL IVP STA (07:33)
[2020-07-13] MEDS ORDERED: LACTATED RINGERS 250 ML IV STA (07:33)
[2020-07-13] MEDS ORDERED: LACTATED RINGERS 1,000 ML IV ONE (07:33)
[2020-07-13 07:34] LABS: ALBUMIN 4.6 g/dL (3.2-5.5); ALBUMIN/GLOBULIN RATIO 1.4 (1.0-2.2); CALCIUM 9.5 mg/dL (8.5-10.3); CREATININE 0.9 mg/dL (0.6-1.2)
[2020-07-13] MEDS ORDERED: ONDANSETRON 4 MG/2 ML VIAL IVP STA (07:34)
[2020-07-13] MEDS ORDERED: ACETAMINOPHEN 500 MG TABLET PO STA (07:42)
--- NOTE | 2020-07-13 07:52 | ED Physician Documentation ---
PD HPI ABD PAIN - Stated complaint Stated Complaint: ABD PX - Chief complaint Chief Complaint: Abd Pain - History obtained from History obtained from: Patient - Additional information Additional information: 75-year-old man with past medical history of cad s/p cabg 12 years ago, asthma, high blood pressure, gastric ulcers, presents with epigastric abdominal pain gradual onset over the past 4 days, relieved with his T3s of which he has run out. The pain progressively worsened overnight after drinking a large amount of alcohol cocktail that his prepared for him. He now endorses nausea, mild. abdominal pain is moderate severity. denies Chest pain shortness of breath diarrhea urinary symptoms. Patient states he drank heavily last night but this is not the norm for him. He denies daily etoh intake. Review of Systems Ten Systems: 10 systems reviewed and negative Constitutional: denies: Fever, Chills Cardiac: denies: Chest pain / pressure GI: reports: Abdominal Pain, Nausea. denies: Vomiting : denies: Dysuria PD PAST MEDICAL HISTORY - Past Medical History Past Medical History: Yes Cardiovascular: Hypertension, Coronary artery disease, HI, Atrial fibrillation Respiratory: Asthma, COPD Neuro: None Endocrine/Autoimmune: None GI: GERD, Hiatal hernia, Diverticulitis : Benign prostate hypertrophy, Nocturia HEENT: Chronic sinusitis, Chronic hearing loss Psych: Depression, Anxiety, Claustrophobia Musculoskeletal: Osteoarthritis, Chronic back pain, Other Derm: Herpes zoster, Other - Past Surgical History Past Surgical History: Yes General: Cholecystectomy, EGD Ortho: Hip replacement, Knee replacement, Arthroscopic surgery, Other Cardiovascular: CABG, Other HEENT: Other - Present Medications Home Medications: Ambulatory Orders Medication Instructions Recorded Confirmed Lorazepam [Ativan] 1 mg PO TID PRN 01/03/17 07/13/20 Levalbuterol Tartrate [Xopenex Hfa] 2 puffs INH Q4H PRN 06/21/17 07/13/20 traZODone [Desyrel] 400 mg PO QPM 06/21/17 07/13/20 Metoprolol Tartrate 50 mg PO DAILY 08/01/17 07/13/20 Sucralfate [Carafate] 1 gm PO ACHS #60 tablet 07/06/19 07/13/20 Ipratropium [Atrovent] 0.5 mg INH Q6H #30 neb 09/08/19 07/13/20 Acetaminophen/Cod 300/30 [Tylenol 1 each PO Q6H PRN #20 tablet 09/28/19 07/13/20 #3] Furosemide 20 mg PO DAILY PRN 07/13/20 07/13/20 Omeprazole 20 mg PO DAILY 07/13/20 07/13/20 - Allergies Allergies/Adverse Reactions: Allergies Allergy/AdvReac Type Severity Reaction Status Date / Time albuterol Allergy Severe heart Verified 07/13/20 06:46 palpatation pantoprazole sodium * Allergy Intermediate Nausea Verified 07/13/20 06:46 [From Protonix] [id number] Reductase Allergy Intermediate Unknown Verified 07/13/20 06:46 Inhibitor Sulfa (Sulfonamide Allergy Intermediate Rash Verified 07/13/20 06:46 Antibiotics) latex Allergy Mild Itching Verified 07/13/20 06:46 diazepam [From Valium] AdvReac Severe DELIRIUM Verified 07/13/20 06:46 hydrocodone [From [place]] AdvReac Anxiety Verified 07/13/20 06:46 morphine AdvReac Anxiety Verified 07/13/20 06:46 - Social History Does the pt smoke?: No Smoking Status: Never smoker Does the pt drink ETOH?: Yes Does the pt have substance abuse?: No - Immunizations Immunizations are current?: Yes - POLST Patient has POLST: No POLST Status: Full Code PD ED PE NORMAL - Vitals Vital signs reviewed: Yes - General General: Alert and oriented X 3 - HEENT HEENT: Atraumatic, PERRL, EOMI - Neck Neck: Supple, no meningeal sign - Cardiac Cardiac: Other (borderline tachycardic rate, regular rhythm) - Respiratory Respiratory: No respiratory distress - Abdomen Abdomen: Non tender, Non distended, Other (distended abdomen. mild discomfort to epigastric palpation. otherwise ntnd. negative brooks sign) - Male Male : Deferred - Rectal Rectal: Deferred - Back Back: No CVA TTP - Derm Derm: Normal color - Extremities Extremities: No deformity, Other (mild 1+ BL pitting edema) - Neuro Neuro: Alert and oriented X 3 - Psych Psych: Normal mood, Normal affect Results - Vitals Vitals: Vital Signs - 24 hr 07/13/20 07/13/20 07/13/20 06:16 07:26 08:20 Temperature 36.8 C 36.7 C Heart Rate 114 H 108 H 108 H Respiratory 18 18 18 Rate Blood Pressure 145/91 H 167/95 H 157/135 H O2 Saturation 93 96 94 07/13/20 07/13/20 10:13 12:21 Temperature Heart Rate 96 105 H Respiratory 18 16 Rate Blood Pressure 173/109 H 164/92 H O2 Saturation 94 95 Oxygen O2 Source [With Activity] Room air O2 Source Room air - Labs Labs: Laboratory Tests 07/13/20 07/13/20 07/13/20 06:35 06:35 06:35 WBC 10.7 RBC 5.04 Hgb 15.1 Hct 45.3 MCV 89.9 MCH 30.0 MCHC 33.3 RDW 12.5 Plt Count 301 MPV 9.0 Neut # (Auto) 8.1 H Lymph # (Auto) 1.4 L [place] # (Auto) 0.9 Eos # (Auto) 0.2 Baso # (Auto) 0.1 Absolute Nucleated RBC 0.00 Nucleated RBC % 0.0 VBG pH VBG pCO2 VBG pO2 VBG HCO3 VBG Total CO2 VBG O2 Saturation VBG Base Excess Sodium 133 L Potassium 4.6 Chloride 93 L Carbon Dioxide 27 Anion Gap 13.0 BUN 9 Creatinine 0.9 Estimated GFR (MDRD) 82 L Glucose 323 H POC Whole Bld Glucose Calcium 9.5 Total Bilirubin 1.0 AST 44 H ALT 47 Alkaline Phosphatase 91 Troponin I High Sens Total Protein 8.0 Albumin 4.6 Globulin 3.4 Albumin/Globulin Ratio 1.4 Lipase 32 Urine Color YELLOW Urine Clarity CLEAR Urine pH 6.0 Ur Specific [place] 1.015 Urine Protein TRACE Urine Glucose (UA) 500 H Urine Ketones 15 H Urine Occult Blood TRACE-LYSE Urine Nitrite NEGATIVE Urine Bilirubin NEGATIVE Urine Urobilinogen 0.2 (NORMAL) Ur Leukocyte Esterase NEGATIVE Ur Microscopic Review NOT INDICATED Urine Culture Comments NOT INDICATED Nasal Adenovirus (PCR) Nasal B. parapertussis DNA (PCR) Nasal Coronavir 229E PCR Nasal Coronavir HKU1 PCR Nasal Coronavir NL63 PCR Nasal Coronavir OC43 PCR Nasal Enterovir/Rhinovir PCR Nasal Influenza B PCR Nasal Influenza A PCR Nasal Parainfluen 1 PCR Nasal Parainfluen 2 PCR Nasal Parainfluen 3 PCR Nasal Parainfluen 4 PCR Nasal RSV (PCR) Nasal B.pertussis DNA PCR Nasal C.pneumoniae (PCR) Jesús Human Metapneumo PCR Nasal M.pneumoniae (PCR) Nasal SARS-CoV-2 (PCR) Urine Opiates Screen Ur Oxycodone Screen Urine Methadone Screen Ur Propoxyphene Screen Ur Barbiturates Screen Ur Tricyclics Screen Ur Phencyclidine Scrn Ur Amphetamine Screen U Methamphetamines Scrn U Benzodiazepines Scrn Urine Cocaine Screen U Cannabinoids Screen Serum Ketones 07/13/20 07/13/20 07/13/20 06:35 09:01 09:01 WBC RBC Hgb Hct MCV MCH MCHC RDW Plt Count MPV Neut # (Auto) Lymph # (Auto) [place] # (Auto) Eos # (Auto) Baso # (Auto) Absolute Nucleated RBC Nucleated RBC % VBG pH 7.401 VBG pCO2 46.0 VBG pO2 65.0 H VBG HCO3 28.6 H VBG Total CO2 30.0 H VBG O2 Saturation 92.0 H VBG Base Excess 4.0 H Sodium Potassium Chloride Carbon Dioxide Anion Gap BUN Creatinine Estimated GFR (MDRD) Glucose POC Whole Bld Glucose Calcium Total Bilirubin AST ALT Alkaline Phosphatase Troponin I High Sens Total Protein Albumin Globulin Albumin/Globulin Ratio Lipase Urine Color Urine Clarity Urine pH Ur Specific [place] Urine Protein Urine Glucose (UA) Urine Ketones Urine Occult Blood Urine Nitrite Urine Bilirubin Urine Urobilinogen Ur Leukocyte Esterase Ur Microscopic Review Urine Culture Comments Nasal Adenovirus (PCR) Nasal B. parapertussis DNA (PCR) Nasal Coronavir 229E PCR Nasal Coronavir HKU1 PCR Nasal Coronavir NL63 PCR Nasal Coronavir OC43 PCR Nasal Enterovir/Rhinovir PCR Nasal Influenza B PCR Nasal Influenza A PCR Nasal Parainfluen 1 PCR Nasal Parainfluen 2 PCR Nasal Parainfluen 3 PCR Nasal Parainfluen 4 PCR Nasal RSV (PCR) Nasal B.pertussis DNA PCR Nasal C.pneumoniae (PCR) Jesús Human Metapneumo PCR Nasal M.pneumoniae (PCR) Nasal SARS-CoV-2 (PCR) Urine Opiates Screen POSITIVE H Ur Oxycodone Screen NEGATIVE Urine Methadone Screen NEGATIVE Ur Propoxyphene Screen NEGATIVE Ur Barbiturates Screen NEGATIVE Ur Tricyclics Screen NEGATIVE Ur Phencyclidine Scrn NEGATIVE Ur Amphetamine Screen NEGATIVE U Methamphetamines Scrn NEGATIVE U Benzodiazepines Scrn POSITIVE H Urine Cocaine Screen NEGATIVE U Cannabinoids Screen NEGATIVE Serum Ketones NEGATIVE 07/13/20 07/13/20 07/13/20 09:01 09:30 10:27 WBC RBC Hgb Hct MCV MCH MCHC RDW Plt Count MPV Neut # (Auto) Lymph # (Auto) [place] # (Auto) Eos # (Auto) Baso # (Auto) Absolute Nucleated RBC Nucleated RBC % VBG pH VBG pCO2 VBG pO2 VBG HCO3 VBG Total CO2 VBG O2 Saturation VBG Base Excess Sodium Potassium Chloride Carbon Dioxide Anion Gap BUN Creatinine Estimated GFR (MDRD) Glucose POC Whole Bld Glucose 246 H Calcium Total Bilirubin AST ALT Alkaline Phosphatase Troponin I High Sens 13.9 Total Protein Albumin Globulin Albumin/Globulin Ratio Lipase Urine Color Urine Clarity Urine pH Ur Specific [place] Urine Protein Urine Glucose (UA) Urine Ketones Urine Occult Blood Urine Nitrite Urine Bilirubin Urine Urobilinogen Ur Leukocyte Esterase Ur Microscopic Review Urine Culture Comments Nasal Adenovirus (PCR) NOT DETECTED Nasal B. parapertussis DNA (PCR) NOT DETECTED Nasal Coronavir 229E PCR NOT DETECTED Nasal Coronavir HKU1 PCR NOT DETECTED Nasal Coronavir NL63 PCR NOT DETECTED Nasal Coronavir OC43 PCR NOT DETECTED Nasal Enterovir/Rhinovir PCR NOT DETECTED Nasal Influenza B PCR NOT DETECTED Nasal Influenza A PCR NOT DETECTED Nasal Parainfluen 1 PCR NOT DETECTED Nasal Parainfluen 2 PCR NOT DETECTED Nasal Parainfluen 3 PCR NOT DETECTED Nasal Parainfluen 4 PCR NOT DETECTED Nasal RSV (PCR) NOT DETECTED Nasal B.pertussis DNA PCR NOT DETECTED Nasal C.pneumoniae (PCR) NOT DETECTED Jesús Human Metapneumo PCR NOT DETECTED Nasal M.pneumoniae (PCR) NOT DETECTED Nasal SARS-CoV-2 (PCR) NOT DETECTED Urine Opiates Screen Ur Oxycodone Screen Urine Methadone Screen Ur Propoxyphene Screen Ur Barbiturates Screen Ur Tricyclics Screen Ur Phencyclidine Scrn Ur Amphetamine Screen U Methamphetamines Scrn U Benzodiazepines Scrn Urine Cocaine Screen U Cannabinoids Screen Serum Ketones PD MEDICAL DECISION MAKING - ED course Complexity details: reviewed results, re-evaluated patient, d/w patient ED course: 75-year-old man with past medical history of stomach ulcers presents with epigastric abd pain after drinking a lot of alcohol, consistent with prior ulcer flares. Will initiate symptomatic care and reevaluate. Abdominal pain resolved with IV pepcid. patient requesting toradol for chronic hip pain. I was reviewing his records and there is some question whether he has a history of diabetes. patient is possibly unreliable historian because he does endorse having fingerstick machine at home but denies diabetes and is unable to provide his full med list. called his who states she is concerned because he has been having chest pain on and off for past few days. patient is denying. given this additional information he will need to be admitted for ACS workup and possible new onset diabetes. The patient is agreeable, as is his . Discussed with hospitalist Dr. Laura Ornelas - she discussed at length with patient and does not feel this is cardiac in nature. She also was able to ascertain from the patient that he had coronary angiography in the past 8 months that was normal. After speaking with our hospitalist he now states that he wants to go home and does not want to stay. I attempted to obtain further history and he states his chest pain is substernal, associated with nausea, lasts a few minutes at a time. When asked if exertional he at first says yes, then no, Unable to confirm whether it is exertional or not because he changes the subject, stating it is not cardiac and this is all because of his achalasia. Asking for benzodiazepines and opiates. D/w hospitalist - will offer observation given his HEART score 4 (age, risk factors). Patient requested his IV be taken out and left prior to hospitalist seeing him a second time for observation admission. I had discussed with him that he needed to sign AMA paperwork if he was going to leave but he refused. He will follow up with his PMD tomorrow. Departure - Departure Disposition: ED Place in Observation Clinical Impression: Abdominal pain, Nausea, Hip pain, Hyperglycemia, Chest pain, Diabetes mellitus, new onset Condition: Stable Instructions: Abdominal Pain Comments: You have been seen in the emergency department for chest pain, abdominal pain, nausea, with concern for possible heart related issues. You should follow-up with your buccaro immediately. Follow-up with your primary doctor tomorrow. You have new onset diabetes and will need treatment for that with your primary.Return to the ED for any new or worsening symptoms. Discharge Date/Time: 07/13/20 13:50
[2020-07-13] MEDS ORDERED: KETOROLAC 15 MG/ML VIAL IVP STA (08:41)
[2020-07-13] MEDS ORDERED: LACTATED RINGERS 1,000 ML IV STA (08:53)
[2020-07-13] MEDS ORDERED: INSULIN REGULAR HUMAN 100 UNIT/1 ML 10 ML MDV IVP STA (08:54)
[2020-07-13 09:16] LABS: VBG PH 7.401 (7.31-7.41)
[2020-07-13 10:34] LABS: C. PNEUMONIAE- RESP PCR PANEL NOT DETECTED
[2020-07-13 12:22] VITALS: BP 164/92
[2020-07-13 13:02] LABS: AMPHETAMINE SCREEN,URINE NEGATIVE (NEGATIVE); BENZODIAZEPINES SCREEN, URINE POSITIVE (NEGATIVE); COCAINE SCREEN URINE NEGATIVE (NEGATIVE); METHADONE SCREEN, URINE NEGATIVE (NEGATIVE); METHAMPHETAMINES SCREEN, URINE NEGATIVE (NEGATIVE); MUDS CUTOFF CONCENTRATIONS CUTOFF CONC BELOW:; OPIATE SCREEN, URINE POSITIVE (NEGATIVE); OXYCODONE SCREEN, URINE NEGATIVE (NEGATIVE); PROPOXYPHENE SCREEN, URINE NEGATIVE (NEGATIVE); TRICYCLIC ANTIDEPRESSANT,URINE NEGATIVE (NEGATIVE)
--- NOTE | 2020-07-13 14:15 | CONSULTATION NOTE ---
DATE OF SERVICE: 07/13/2020 Physician: Laura Daniels MD HISTORY OF PRESENT ILLNESS: This is a 75-year-old white male who has a history of CABG done 10-12 years ago, history of prior abdominal wall abscess requiring several procedures and previous hospitalization here in 2018, history of achalasia with a myotomy procedure in the past, history of narcotic abuse in the past, hypertension, old ME, atrial fibrillation, asthma/COPD, BPH, anxiety and depression, and claustrophobia, DJD, history of hip replacement and knee replacement. The patient presented to the emergency room today with complaints of abdominal pain, which was epigastric and reported that it was worse over the last 4 days, occurred right after meals and relieved with Tylenol #3, which he has run out of. Yesterday, he had an increased amount of alcohol intake, which were cocktails that were prepared by his for him. He denied any nausea or vomiting, diarrhea, fever or chills. The told the emergency room doctor that he has also had chest pain, which has increased over the last 4 days. There is no documentaion of details regarding that complaint. For the episodes of chest pain, the emergency room provider, Dr Soler, has requested he be placed in Observation status by the Hospitalist Team, and I am seeing him in the ER. The patient reports that his chest pain is bilateral anterior chest, over both breasts, occurs after coughing a long time and he describes it as if a hawk with sharp talons, has landed on him. He says that he rubs it and it gets better and he also places some type of ointment on it, which also improves it. The does endorse that the patient has had an increased cough lately. The reports that in October of this year. There were chest pain symptoms that got evaluated by his Director Corporate Compliance who is at [facility] in [place]. The describes that he underwent a coronary angiogram that was normal, or stable. The also said that "If this was his heart, we would be driving straight to [place]." In the ER, he has received Toradol for right hip pain as well as Pepcid, and the patient's epigastric discomfort is entirely relieved currently, he says. PAST MEDICAL HISTORY: CAD, hypertension, old ME, atrial fibrillation, COPD/asthma, anxiety and depression, DJD, achalasia with myotomy surgery, GERD, remote CABG surgery, hip surgery and knee surgery. ALLERGIES 1. ALBUTEROL 2. PANTOPRAZOLE 3. STATINS 2. SULFA 3. LATEX 4. VALIUM 5. NORCO 6. MORPHINE. MEDICATIONS 1. Metoprolol tartrate 50 mg daily. 2. Tylenol with Codeine #3, q.6.h. p.r.n. pain, he ran out of this several days ago. 3. Ativan 1 mg t.i.d. p.r.n. 4. Xopenex inhaler q.4.h. p.r.n. 5. Atrovent inhaler q.6.h. scheduled 6. Lasix 20 mg daily p.r.n. 7. Omeprazole 20 mg daily. 8. Sucralfate 1 gram before meals and at bedtime. 9. Desyrel 400 mg every night. REVIEW OF SYSTEMS: The ER provider was able to learn that the patient has had a glucometer in his house since the time of the CABG which is 10 to 12 years ago but was never told that he has diabetes. A comprehensive review of systems was performed and the pertinent positives are listed, the rest are negative. FAMILY HISTORY: No inherited diseases that are reported. SOCIAL HISTORY: The patient is a nonsmoker, who never smoked. He does drink alcohol, usually without abuse, but last night was heavier use, he reported. The EMR states that he has had a history of narcotic abuse. 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 PHYSICAL EXAM GENERAL: White male, who appears in no distress. He is mildly disheveled. VITAL SIGNS: Blood pressure 164/92, heart rate is 105 in sinus tachycardia, room air saturation 95%, respiratory rate 16. HEENT: Unremarkable except he appears disheveled. NECK: No JVD. CHEST: Reveals no respiratory distress. HEART: tachycardic ABDOMEN: Mildly distended, not tender to mild palpation. EXTREMITIES: No clubbing, cyanosis or edema. NEUROLOGIC: Grossly intact. LABORATORY DATA: Sodium 133, otherwise normal electrolytes. Normal BUN and creatinine. Glucose of 323 and another POC glucose was 246. AST 44, ALT 47, otherwise normal liver tests. High sensitivity troponin 13.9. Lipase normal at 32. White blood count 10.7 and a normal CBC. His VBG had a pH of 7.4. Urinalysis showed high glucose and high ketones, otherwise negative. A [employer] test was done that showed negative for COVID and he also had positive urine opiates and positive urine benzodiazepines on a MUDS screen. EKG: Sinus tachycardia, nonspecific T-wave flattening laterally. There is no old EKG for comparison. Chest x-ray was not done today. IMPRESSION/DIAGNOSES: 1. Atypical chest pain for angina as it appears to be post-coughing and relieved with topical ointment and with massage of the chest wall. He also has a second atypical chest pain, which he says is his usual esophageal pain and it follows meals. 2. Achalasia of esophagus and some surgery was done that sounds like myotomy (muscle wrapping of the lower esophagus after a cutting the lower esophageal sphincter). 3. History of coronary artery bypass graft. 4. Elevated serum glucose, possibly diabetes. 5. Hypertension. 6. Cough. There is no wheezing to suggest a COPD exacerbation. RECOMMENDATIONS: Recommend obtaining a chest x-ray. Recommend more detailed evaluation by the emergency room provider to triage whether this current complaint is of musculoskeletal pain, GERD-like pain or pleuritic pain. The had a revealing comment when she said, "If this was his heart, we would be driving to [place].", suggesting that this is not the typical anginal pain that he has had in the past. Knowing that there was a coronary angiogram done just 8 months ago with normal coronary arteries, also makes it less suspicious that this is angina. Continue management of his hypertension, anxiety, COPD, GERD. The elevated glucose may be a new diagnosis of diabetes mellitus and it turns out that he has an appointment with his PCP tomorrow, and management of new diabetes may be started as an outpatient and followed by the PCP. I advised he keep that appointment. Recommend repeating another troponin here before discharge. If these are "flat", and the ER provider also gets details that the pain was unlike his prior cardiac symptoms, then placement into Observation for angina evaluation and a stress test is not needed. Thank you for allowing me to participate in the care of this patient. ADDENDUM: The ER provider, Dr. Emily Soler, went back to speak to the patient to get details about the chest pain. The patient told her that it was exertional pain, and then she asked him to confirm that it was exertional and he would not. She called me with this information and asked that I bring him in for cardiac chest pain evaluation. I agreed. Before I arrived to meet with him again, the patient decided not to stay and signed out AGAINST MEDICAL ADVICE from the ER, without signing an AMA form. cc: Aureliano Webb MD TD: 07/13/2020 13:12 RICKY
[2020-07-13 16:15] LABS: GAMMA GLUTAMYL TRANSPEPTIDASE 86 IU/L (8-55)
== END 2020-07-13 13:50 ==
LOC: ED 06:11
DX: R10.13 Epigastric pain (principal); R11.0 Nausea; R07.89 Other chest pain; E11.65 Type 2 diabetes mellitus with hyperglycemia; M25.551 Pain in right hip; G89.29 Other chronic pain; R00.0 Tachycardia, unspecified; Z20.828 Contact with and (suspected) exposure to other viral communicable diseases; Z87.11 Personal history of peptic ulcer disease; K22.0 Achalasia of cardia; K21.9 Gastro-esophageal reflux disease without esophagitis; I10 Essential (primary) hypertension; I25.10 Atherosclerotic heart disease of native coronary artery without angina pectoris; Z95.1 Presence of aortocoronary bypass graft; I25.2 Old myocardial infarction; J44.9 Chronic obstructive pulmonary disease, unspecified; Z53.20 Procedure and treatment not carried out because of patient's decision for unspecified reasons
CPT/HCPCS: 36415; 80053; 80306; 81003; 82009; 82803; 82977; 83690; 84484; 85025; 87631; 93005; 96361; 96374; 96375; 99283; 99284; A9270; J1815; J7120; 0202U; 80320; 81001; 87086

== ENCOUNTER 2020-08-08 13:05 | Emergency (ER) | payer MEDICARE, OTHER ==
--- NOTE | 2020-08-08 13:30 | ED Physician Documentation ---
History of Present Illness - Stated complaint Stated Complaint: LT FOOT PX - Chief complaint Chief Complaint: Ext Problem - History obtained from History obtained from: Patient - History of Present Illness Timing: How many days ago (4) Pain level max: 6 Pain level now: 4 - Additonal information Additional information: 75-year-old male presents to the emergency department with left foot pain. He complains of pain in between the first and second toes. Worse with walking, better with rest. Usually wears sandals around the house. No trauma that he recalls. No redness. No swelling. Review of Systems Constitutional: denies: Fever Neurologic: denies: Headache PD PAST MEDICAL HISTORY - Past Medical History Cardiovascular: Hypertension, Coronary artery disease, [place], Atrial fibrillation Respiratory: Asthma, COPD Neuro: None Endocrine/Autoimmune: None GI: GERD, Hiatal hernia, Diverticulitis : Benign prostate hypertrophy, Nocturia HEENT: Chronic sinusitis, Chronic hearing loss Psych: Depression, Anxiety, Claustrophobia Musculoskeletal: Osteoarthritis, Chronic back pain, Other Derm: Herpes zoster, Other - Past Surgical History Past Surgical History: Yes General: Cholecystectomy, EGD Ortho: Hip replacement, Knee replacement, Arthroscopic surgery, Other Cardiovascular: CABG, Other HEENT: Other - Present Medications Home Medications: Ambulatory Orders Medication Instructions Recorded Confirmed Lorazepam [Ativan] 1 mg PO TID PRN 01/03/17 07/13/20 Levalbuterol Tartrate [Xopenex Hfa] 2 puffs INH Q4H PRN 06/21/17 07/13/20 traZODone [Desyrel] 400 mg PO QPM 06/21/17 07/13/20 Metoprolol Tartrate 50 mg PO DAILY 08/01/17 07/13/20 Sucralfate [Carafate] 1 gm PO ACHS #60 tablet 07/06/19 07/13/20 Ipratropium [Atrovent] 0.5 mg INH Q6H #30 neb 09/08/19 07/13/20 Acetaminophen/Cod 300/30 [Tylenol 1 each PO Q6H PRN #20 tablet 09/28/19 07/13/20 #3] Furosemide 20 mg PO DAILY PRN 07/13/20 07/13/20 Omeprazole 20 mg PO DAILY 07/13/20 07/13/20 Meloxicam [Mobic] 7.5 mg PO BID PRN #20 tablet 08/08/20 - Allergies Allergies/Adverse Reactions: Allergies Allergy/AdvReac Type Severity Reaction Status Date / Time albuterol Allergy Severe heart Verified 08/08/20 13:14 palpatation pantoprazole sodium * Allergy Intermediate Nausea Verified 08/08/20 13:14 [From Protonix] Rieavkz-Soy-Xfk Reductase Allergy Intermediate Unknown Verified 08/08/20 13:14 Inhibitor Sulfa (Sulfonamide Allergy Intermediate Rash Verified 08/08/20 13:14 Antibiotics) latex Allergy Mild Itching Verified 08/08/20 13:14 diazepam [From Valium] AdvReac Severe DELIRIUM Verified 08/08/20 13:14 hydrocodone [From [place]] AdvReac Anxiety Verified 08/08/20 13:14 morphine AdvReac Anxiety Verified 08/08/20 13:14 - Social History Does the pt smoke?: No Smoking Status: Never smoker Does the pt drink ETOH?: Yes Does the pt have substance abuse?: No - Immunizations Immunizations are current?: Yes - POLST Patient has POLST: No POLST Status: Full Code PD ED PE NORMAL - Vitals Vital signs reviewed: Yes - General General: Alert and oriented X 3, No acute distress - HEENT HEENT: Moist mucous membranes - Derm Derm: Warm and dry - Extremities Extremities: Other (R foot - mild ttp in between the 1st and 2nd MT. No swelling, no erythema, no skin changes. NVI. ) - Neuro Neuro: Alert and oriented X 3 - Psych Psych: Normal mood, Normal affect Results - Vitals Vitals: Vital Signs - 24 hr 08/08/20 08/08/20 13:14 14:10 Temperature 36.5 C Heart Rate 77 78 Respiratory 18 16 Rate Blood Pressure 164/85 H 174/86 H O2 Saturation 96 95 Oxygen O2 Source [With Activity] Room air O2 Source Room air - Rads (name of study) R foot xray Radiology: Prelim report reviewed, EMP read contemporaneously, See rad report (no acute abnormality.) PD MEDICAL DECISION MAKING - ED course Complexity details: reviewed results, re-evaluated patient, considered differential, d/w patient ED course: 75-year-old male with foot pain. Unclear etiology, appears to be likely a fascial component. We will treat as plantar fasciitis. Placed in a postoperative shoe. We will place on anti-inflammatories for home. Patient counseled regarding signs and symptoms for which I believe and urgent re- evaluation would be necessary. Patient with good understanding of and agreement to plan and is comfortable going home at this time This document was made in part using voice recognition software. While efforts are made to proofread this document, sound alike and grammatical errors may occur. Departure - Departure Disposition: Home, Self Care Clinical Impression: Foot pain, right Condition: Good Instructions: Shoes Wearing Proper, Plantar Fasciitis, Plantar Fasciitis Tx Follow-Up: Aureliano Webb MD [Primary Care Provider] - Prescriptions: Meloxicam [Mobic] 7.5 mg PO BID PRN #20 tablet PRN Reason: Pain Comments: You need to make sure that you are wearing supportive shoes at home. Follow-up with your doctor for further care. The postoperative shoe will also help.
[2020-08-08 14:11] VITALS: BP 174/86
--- NOTE | 2020-08-08 14:11 | XRAY Report ---
PROCEDURE: Foot 3 View LT INDICATIONS: pain TECHNIQUE: 3 views of the foot were acquired. COMPARISON: None. FINDINGS: Bones: No fractures or dislocations. No suspicious bony lesions. Soft tissues: No tibiotalar joint effusion. Achilles tendon appears normal. IMPRESSION: No acute osseous abnormalities. Reviewed by: Umesh Negro MD on 08/08/2020 2:10 PM PST Approved by: Umesh Negro MD on 08/08/2020 2:[address] [facility] Station ID: [id number]
[2020-08-08] MEDS ORDERED: MELOXICAM 7.5 MG TABLET PO STA (14:26)
[2020-08-08] MEDS ORDERED: ONDANSETRON ODT 4 MG TABLET TL STA (14:26)
== END 2020-08-08 14:40 | disposition home or self-care (01) ==
LOC: ED 13:05
DX: M79.672 Pain in left foot (principal); I10 Essential (primary) hypertension; I48.91 Unspecified atrial fibrillation; Z95.1 Presence of aortocoronary bypass graft
CPT/HCPCS: 73630; 99283; 99284; A9270; Q0162

== ENCOUNTER 2020-09-12 00:14 | Emergency (ER) | payer MEDICARE ==
[2020-09-12 00:22] VITALS: BP 114/82
[2020-09-12] MEDS ORDERED: oxyCODONE 5 MG TABLET PO STA (00:59)
--- NOTE | 2020-09-12 01:04 | ED Physician Documentation ---
History of Present Illness - Stated complaint Stated Complaint: COVID SHOT REACTION - Chief complaint Chief Complaint: Allergic Rx - History obtained from History obtained from: Patient - Additonal information Additional information: Patient comes emergency department chief complaint of being out of his chronic oxycodone, and having leg shakes and spasms. 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 Associated with this is abdominal and chest pain which has been worked up extensively, including recently with CT angiograms at [facility]. Patient states he is going to be following up soon with his primary care providers through the [place] regarding the results of these scans. Patient states that the reason he is out of his oxycodone is that while in [place], he accidentally left his meds there. He states that he is scheduled to get another shipment of meds, which she gets every 2 weeks, in about 2 days. The patient states that he began to have the shakes today and that he also became short of breath. The patient has a history of COPD and took his leave albuterol, but felt that it did not help. He states he did also feel anxious because of the symptoms in his legs, and states that it scares him every time he gets the symptoms. The patient did have his first Covid shot today at [facility] [place], and received the Moderna vaccine. He states he did not feel unwell after the shot. He states his breathing has improved, but he is still having spasms and shakes in his legs. No other complaints at this time. Review of Systems Ten Systems: 10 systems reviewed and negative Constitutional: reports: Reviewed and negative Eyes: reports: Reviewed and negative Ears: reports: Reviewed and negative Nose: reports: Reviewed and negative Throat: reports: Reviewed and negative Cardiac: reports: Reviewed and negative Respiratory: reports: Reviewed and negative GI: reports: Reviewed and negative : reports: Reviewed and negative Skin: reports: Reviewed and negative Musculoskeletal: reports: Extremity pain. denies: Extremity swelling Neurologic: reports: Reviewed and negative Psychiatric: reports: Reviewed and negative Endocrine: reports: Reviewed and negative Immunocompromised: reports: Reviewed and negative PD PAST MEDICAL HISTORY - Past Medical History Cardiovascular: Hypertension, Coronary artery disease, [place], Atrial fibrillation Respiratory: Asthma, COPD Neuro: None Endocrine/Autoimmune: None GI: GERD, Hiatal hernia, Diverticulitis : Benign prostate hypertrophy, Nocturia HEENT: Chronic sinusitis, Chronic hearing loss Psych: Depression, Anxiety, Claustrophobia Musculoskeletal: Osteoarthritis, Chronic back pain, Other Derm: Herpes zoster, Other - Past Surgical History Past Surgical History: Yes General: Cholecystectomy, EGD Ortho: Hip replacement, Knee replacement, Arthroscopic surgery, Other Cardiovascular: CABG, Other HEENT: Other - Present Medications Home Medications: Ambulatory Orders Medication Instructions Recorded Confirmed Lorazepam [Ativan] 1 mg PO TID PRN 01/03/17 07/13/20 Levalbuterol Tartrate [Xopenex Hfa] 2 puffs INH Q4H PRN 06/21/17 09/12/20 traZODone [Desyrel] 400 mg PO QPM 06/21/17 07/13/20 Metoprolol Tartrate 50 mg PO DAILY 08/01/17 09/12/20 Sucralfate [Carafate] 1 gm PO ACHS #60 tablet 07/06/19 07/13/20 Ipratropium [Atrovent] 0.5 mg INH Q6H #30 neb 09/08/19 09/12/20 Acetaminophen/Cod 300/30 [Tylenol 1 each PO Q6H PRN #20 tablet 09/28/19 07/13/20 #3] Furosemide 20 mg PO DAILY PRN 07/13/20 07/13/20 Omeprazole 20 mg PO DAILY 07/13/20 09/12/20 Meloxicam [Mobic] 7.5 mg PO BID PRN #20 tablet 08/08/20 09/12/20 Oxycodone HCl/Acetaminophen 1 each PO BID PRN #3 tab 09/12/20 [Percocet 5-325 mg Tablet] - Allergies Allergies/Adverse Reactions: Allergies Allergy/AdvReac Type Severity Reaction Status Date / Time pantoprazole sodium * Allergy Intermediate Nausea Verified 09/12/20 00:16 [From Protonix] Fjrgrch-Qec-Vva Reductase Allergy Intermediate Unknown Verified 09/12/20 00:16 Inhibitor Sulfa (Sulfonamide Allergy Intermediate Rash Verified 09/12/20 00:16 Antibiotics) latex Allergy Mild Itching Verified 09/12/20 00:16 albuterol AdvReac Severe heart Verified 09/12/20 00:33 palpatation diazepam [From Valium] AdvReac Severe DELIRIUM Verified 09/12/20 00:16 hydrocodone [From [place]] AdvReac Anxiety Verified 09/12/20 00:16 morphine AdvReac Anxiety Verified 09/12/20 00:16 - Social History Does the pt smoke?: No Smoking Status: Never smoker Does the pt drink ETOH?: Yes Does the pt have substance abuse?: No - Immunizations Immunizations are current?: Yes - POLST Patient has POLST: No POLST Status: Full Code PD ED PE NORMAL - Vitals Vital signs reviewed: Yes - General General: Alert and oriented X 3, No acute distress (Patient appears mildly anxious but otherwise in no apparent distress.), Well developed/nourished - HEENT HEENT: Atraumatic, PERRL, EOMI, Moist mucous membranes - Neck Neck: Supple, no meningeal sign - Cardiac Cardiac: RRR, No murmur, Strong equal pulses - Respiratory Respiratory: No respiratory distress, Clear bilaterally - Abdomen Abdomen: Soft, Non tender, Non distended - Derm Derm: Normal color, Warm and dry, No rash - Extremities Extremities: No deformity, No edema, No calf tenderness / cord - Neuro Neuro: Alert and oriented X 3, university manager 2-12 intact, Normal speech, Other (Int ermittent coarse tremors of bilateral lower extremities.) - Psych Psych: Normal mood, Normal affect Results - Vitals Vitals: Vital Signs - 24 hr 09/12/20 00:16 Temperature 36.5 C Heart Rate 87 Respiratory 16 Rate Blood Pressure 114/82 H O2 Saturation 95 Oxygen O2 Source [With Activity] Room air O2 Source Room air PD MEDICAL DECISION MAKING - ED course Complexity details: considered differential, d/w patient ED course: I discussed with the patient that we do not generally refill chronic pain medication from the emergency department. I have given him 1 dose of his oxycodone here, and a prescription for 3 more pills. The patient's lungs are clear and his oxygen saturation is great, and I do not find any evidence of a respiratory issue. I feel that his breathing issues are most likely secondary to anxiety induced by his leg spasms. We have discussed home management of the symptoms, as well as usual indications for return Departure - Departure Disposition: 01 Home, Self Care Clinical Impression: Muscle spasms of lower extremity Qualifiers: Laterality: bilateral Qualified Code(s): M62.838 - Other muscle spasm Condition: Stable Instructions: ED Spasm Muscle Prescriptions: Oxycodone HCl/Acetaminophen [Percocet 5-325 mg Tablet] 1 each PO BID PRN #3 tab PRN Reason: pain
== END 2020-09-12 01:35 | disposition home or self-care (01) ==
LOC: ED 00:14
DX: M62.838 Other muscle spasm (principal); F41.9 Anxiety disorder, unspecified; J44.9 Chronic obstructive pulmonary disease, unspecified; I10 Essential (primary) hypertension
CPT/HCPCS: 99282; 99284; A9270

== ENCOUNTER 2020-09-14 06:00 | Emergency (ER) | payer MEDICARE ==
[2020-09-14] MEDS ORDERED: KETOROLAC 30 MG/ML VIAL IM STA (06:32)
--- NOTE | 2020-09-14 06:36 | ED Physician Documentation ---
History of Present Illness - Stated complaint Stated Complaint: COUGH/SHOULDER PX - Chief complaint Chief Complaint: Resp - History obtained from History obtained from: Patient - Additonal information Additional information: 75-year-old man with past medical history of arthritis p/w chronic R shoulder pain, aching constant, gradually worsening this morning, worse with rom, nonradiating. also with chronic cough productive of green sputum. denies fevers, chest pain sob back pain. no numbness or weakness. patient is requesting oxycodone. Review of Systems Constitutional: denies: Fever, Chills Cardiac: denies: Chest pain / pressure Respiratory: reports: Cough Musculoskeletal: reports: Joint pain PD PAST MEDICAL HISTORY - Past Medical History Past Medical History: Yes Cardiovascular: Hypertension, Coronary artery disease, [place], Atrial fibrillation Respiratory: Asthma, COPD Neuro: None Endocrine/Autoimmune: None GI: GERD, Hiatal hernia, Diverticulitis : Benign prostate hypertrophy, Nocturia HEENT: Chronic sinusitis, Chronic hearing loss Psych: Depression, Anxiety, Claustrophobia Musculoskeletal: Osteoarthritis, Chronic back pain, Other Derm: Herpes zoster, Other - Past Surgical History Past Surgical History: Yes General: Cholecystectomy, EGD Ortho: Hip replacement, Knee replacement, Arthroscopic surgery, Other Cardiovascular: CABG, Other HEENT: Other - Present Medications Home Medications: Ambulatory Orders Medication Instructions Recorded Confirmed Lorazepam [Ativan] 1 mg PO TID PRN 01/03/17 09/14/20 Levalbuterol Tartrate [Xopenex Hfa] 2 puffs INH Q4H PRN 06/21/17 09/14/20 traZODone [Desyrel] 400 mg PO QPM 06/21/17 09/14/20 Metoprolol Tartrate 50 mg PO DAILY 08/01/17 09/14/20 Sucralfate [Carafate] 1 gm PO ACHS #60 tablet 07/06/19 09/14/20 Ipratropium [Atrovent] 0.5 mg INH Q6H #30 neb 09/08/19 09/14/20 Acetaminophen/Cod 300/30 [Tylenol 1 each PO Q6H PRN #20 tablet 09/28/19 09/14/20 #3] Furosemide 20 mg PO DAILY PRN 07/13/20 09/14/20 Omeprazole 20 mg PO DAILY 07/13/20 09/14/20 Meloxicam [Mobic] 7.5 mg PO BID PRN #20 tablet 08/08/20 09/14/20 Oxycodone HCl/Acetaminophen 1 each PO BID PRN #3 tab 09/12/20 09/14/20 [Percocet 5-325 mg Tablet] - Allergies Allergies/Adverse Reactions: Allergies Allergy/AdvReac Type Severity Reaction Status Date / Time pantoprazole sodium * Allergy Intermediate Nausea Verified 09/14/20 06:08 [From Protonix] Psqzpma-Wso-Wuu Reductase Allergy Intermediate Unknown Verified 09/14/20 06:08 Inhibitor Sulfa (Sulfonamide Allergy Intermediate Rash Verified 09/14/20 06:08 Antibiotics) latex Allergy Mild Itching Verified 09/14/20 06:08 albuterol AdvReac Severe heart Verified 09/14/20 06:08 palpatation diazepam [From Valium] AdvReac Severe DELIRIUM Verified 09/14/20 06:08 hydrocodone [From [place]] AdvReac Anxiety Verified 09/14/20 06:08 morphine AdvReac Anxiety Verified 09/14/20 06:08 - Social History Does the pt smoke?: No Smoking Status: Never smoker Does the pt drink ETOH?: Yes Does the pt have substance abuse?: No - Immunizations Immunizations are current?: Yes - POLST Patient has POLST: No POLST Status: Full Code PD ED PE NORMAL - Vitals Vital signs reviewed: Yes - General General: Alert and oriented X 3, No acute distress - HEENT HEENT: Atraumatic, PERRL, EOMI - Neck Neck: Supple, no meningeal sign - Cardiac Cardiac: RRR - Respiratory Respiratory: No respiratory distress, Clear bilaterally - Abdomen Abdomen: Non tender, Non distended - Extremities Extremities: Other (R shoulder FROM. nontender on exam. distal pulse intact. normal strength, sensation, cap refill) - Neuro Neuro: Alert and oriented X 3 Results - Vitals Vitals: Vital Signs - 24 hr 09/14/20 09/14/20 06:08 06:12 Temperature 36.2 C L 36.2 C L Heart Rate 69 69 Respiratory 18 18 Rate Blood Pressure 142/94 H 142/94 H O2 Saturation 98 98 Oxygen O2 Source [With Activity] Room air O2 Source Room air PD MEDICAL DECISION MAKING - ED course ED course: 75-year-old man with history of chronic pain presents requesting oxycodone, stating that he no longer has a primary doctor to prescribe it. Toradol was offered as an alternative that is nonaddictive and he accepted. Return precautions given. Patient will follow up outpatient. Departure - Departure Disposition: 01 Home, Self Care Clinical Impression: Right shoulder pain Condition: Good Instructions: Chronic Pain Follow-Up: Yoseph Guerrero, [Provider Admit Priv/Credential] - Comments: You were seen in the emergency department for right shoulder pain. Toradol shot was given. Follow-up with your primary doctor. Return to the emergency department if you have any new or worsening symptoms or other concerns. Please follow up with [facility]. [address] [facility], [place] [address] ~[address]
[2020-09-14 06:52] VITALS: BP 144/88
== END 2020-09-14 06:50 | disposition home or self-care (01) ==
LOC: ED 06:00
DX: M25.511 Pain in right shoulder (principal)
CPT/HCPCS: 93005; 96372; 99282; 99283

== ENCOUNTER 2020-10-26 06:13 | Emergency (ER) | payer MEDICARE ==
[2020-10-26 06:28] VITALS: BP 113/68
[2020-10-26] MEDS ORDERED: methocarbamoL 500 MG TABLET PO STA (06:29)
[2020-10-26] MEDS ORDERED: hydrOXYzine PAMOATE 25 MG CAPSULE PO STA (06:29)
[2020-10-26] MEDS ORDERED: KETOROLAC 30 MG/ML VIAL IM STA (06:31)
--- NOTE | 2020-10-26 06:31 | ED Physician Documentation ---
PD HPI LOWER EXT INJURY - Stated complaint Stated Complaint: LEG SPASM/COLD FEET - Chief complaint Chief Complaint: General - History obtained from History obtained from: Patient - History of Present Illness PD HPI LOW EXT INJURY LOCATION: Left, Upper leg, Knee Type of injury: Fall (he states he lost balance and fell forward onto knees 2 days ago with abrasions both knees. Has had some pain at times in left thigh with intermittent spasms of antyerior muscles. Also nauseated and shaky. He states Rx 6 pain meds QD and had taken couple extra past 2 days. Last dose last nite.) Timing - onset: Today (having muscle spasms left thigh and around knee onset today.), How many days ago (2) Timing - details: Intermittant Worsened by: Moving. No: Palpating Associated symptoms: Swelling (anterior knees bilaterally, but able to walk and has both prior knee replacements.). No: Weakness, Numbness Contributing factors: No: Anticoagulated Similar symptoms before: Diagnosis (has knee pains intermittently. Also history of some aortic repair with mesenteric ischemia at times. No history of PVD in legs previously though.) Review of Systems Constitutional: denies: Fever, Chills Nose: denies: Rhinorrhea / runny nose, Congestion Throat: denies: Sore throat Cardiac: denies: Chest pain / pressure Respiratory: denies: Dyspnea, Cough GI: denies: Abdominal Pain, Nausea, Vomiting Musculoskeletal: reports: Back pain (chronic), Extremity swelling (right anterior knee. Left knee painful but no swelling. Abrasions both knees.) Neurologic: denies: Focal weakness, Numbness PD PAST MEDICAL HISTORY - Past Medical History Cardiovascular: Hypertension, Coronary artery disease, [place], Atrial fibrillation, Other Respiratory: Asthma, COPD Neuro: None Endocrine/Autoimmune: None GI: GERD, Hiatal hernia, Diverticulitis : Benign prostate hypertrophy, Nocturia HEENT: Chronic sinusitis, Chronic hearing loss Psych: Depression, Anxiety, Claustrophobia Musculoskeletal: Osteoarthritis, Chronic back pain, Other Derm: Herpes zoster, Other - Past Surgical History Past Surgical History: Yes General: Cholecystectomy, EGD Ortho: Hip replacement, Knee replacement, Arthroscopic surgery, Other Cardiovascular: CABG, Other HEENT: Other - Present Medications Home Medications: Ambulatory Orders Medication Instructions Recorded Confirmed Lorazepam [Ativan] 1 mg PO TID PRN 01/03/17 10/26/20 Levalbuterol Tartrate [Xopenex Hfa] 2 puffs INH Q4H PRN 06/21/17 10/26/20 traZODone [Desyrel] 400 mg PO QPM 06/21/17 10/26/20 Metoprolol Tartrate 50 mg PO DAILY 08/01/17 10/26/20 Sucralfate [Carafate] 1 gm PO ACHS #60 tablet 07/06/19 10/26/20 Ipratropium [Atrovent] 0.5 mg INH Q6H #30 neb 09/08/19 10/26/20 Acetaminophen/Cod 300/30 [Tylenol 1 each PO Q6H PRN #20 tablet 09/28/19 10/26/20 #3] Furosemide 20 mg PO DAILY PRN 07/13/20 10/26/20 Omeprazole 20 mg PO DAILY 07/13/20 10/26/20 Meloxicam [Mobic] 7.5 mg PO BID PRN #20 tablet 08/08/20 10/26/20 Oxycodone HCl/Acetaminophen 1 each PO BID PRN #3 tab 09/12/20 10/26/20 [Percocet 5-325 mg Tablet] Ondansetron Odt [Zofran] 4 mg TL Q6H PRN #10 tablet 10/26/20 tiZANidine [Zanaflex] 4 mg PO Q8H PRN #15 tablet 10/26/20 - Allergies Allergies/Adverse Reactions: Allergies Allergy/AdvReac Type Severity Reaction Status Date / Time pantoprazole sodium * Allergy Intermediate Nausea Verified 10/26/20 06:21 [From Protonix] Hotkywe-Gxf-Ffn Reductase Allergy Intermediate Unknown Verified 10/26/20 06:21 Inhibitor Sulfa (Sulfonamide Allergy Intermediate Rash Verified 10/26/20 06:21 Antibiotics) latex Allergy Mild Itching Verified 10/26/20 06:21 albuterol AdvReac Severe heart Verified 10/26/20 06:21 palpatation diazepam [From Valium] AdvReac Severe DELIRIUM Verified 10/26/20 06:21 hydrocodone [From [place]] AdvReac Anxiety Verified 10/26/20 06:21 morphine AdvReac Anxiety Verified 10/26/20 06:21 - Social History Does the pt smoke?: No Smoking Status: Never smoker Does the pt drink ETOH?: Yes Does the pt have substance abuse?: No - Immunizations Immunizations are current?: Yes - POLST Patient has POLST: No POLST Status: Full Code PD ED PE NORMAL - Vitals Vital signs reviewed: Yes - General General: Alert and oriented X 3, Well developed/nourished, Other (he appears okay and then intermittently winces and grabs left knee and thigh. Normal color and cap refill in both feet. Faint but palpable DP pulses. No edema lower legs. Anterior knees bilaterally with abrasions with scabs, no infection apparent. Right anterior knee with mild effusion. ) - HEENT HEENT: No: PERRL (both very constricted and therefore minimally reactive.) - Respiratory Respiratory: Clear bilaterally - Abdomen Abdomen: Soft, Non tender - Back Back: No spinal TTP - Derm Derm: Normal color, Warm and dry - Extremities Extremities: No edema, No calf tenderness / cord, Other (right anterior knee with some prepatellar edema. No redness. Abrasions without infection. ) - Neuro Neuro: Alert and oriented X 3, No motor deficit, No sensory deficit, Normal speech, Other (mild shakiness/tremor in arms/hands. ) Results - Vitals Vitals: Vital Signs - 24 hr 10/26/20 10/26/20 06:22 06:29 Temperature 36.6 C 36.6 C Heart Rate 80 80 Respiratory 22 22 Rate Blood Pressure 113/68 113/68 O2 Saturation 97 97 Oxygen O2 Source [With Activity] Room air O2 Source Room air - Labs Labs: Laboratory Tests 10/26/20 10/26/20 06:39 06:39 Sodium 136 Potassium 4.2 Chloride 98 L Carbon Dioxide 25 Anion Gap 13.0 BUN 14 Creatinine 1.0 Estimated GFR (MDRD) 73 L Glucose 182 H Lactic Acid 2.5 H Calcium 9.2 Magnesium 1.8 Total Bilirubin 0.6 AST 23 ALT 21 Alkaline Phosphatase 66 Total Creatine Kinase 140 Total Protein 7.7 Albumin 4.3 Globulin 3.4 Albumin/Globulin Ratio 1.3 PD MEDICAL DECISION MAKING - ED course Complexity details: reviewed old records (many visits to ER with prior history of narcotic seeking. He is having left muscle spasms at times. can check lytes. Does not appear ischemic process with good color and DP pulses. Consider some mild withdrawal symptoms regarding tremor. ), considered differential, d/w patient Departure - Departure Disposition: 01 Home, Self Care Clinical Impression: Leg muscle spasm Qualifiers: Laterality: bilateral Qualified Code(s): M62.838 - Other muscle spasm Condition: Stable Record reviewed to determine appropriate education?: Yes Instructions: ED Muscle Pain Leg Cramps Follow-Up: Kimmy Lim MD [Primary Care Provider] - Prescriptions: tiZANidine [Zanaflex] 4 mg PO Q8H PRN #15 tablet PRN Reason: Spasms Ondansetron Odt [Zofran] 4 mg TL Q6H PRN #10 tablet PRN Reason: Nausea / Vomiting Comments: Stay well-hydrated. Use tizanidine 3 times a day if needed for muscle spasms. Ondansetron if needed for nausea. Follow-up with your primary care tomorrow regarding any further pain medication refills. We will not be prescribing any narcotics out of the ER. We will try to help you with the spasms and nausea feeling you are having. Discharge Date/Time: 10/26/20 08:30
[2020-10-26 06:58] LABS: ALBUMIN 4.3 g/dL (3.2-5.5); ALBUMIN/GLOBULIN RATIO 1.3 (1.0-2.2); BILIRUBIN,TOTAL 0.6 mg/dL (0.2-1.0); CALCIUM 9.2 mg/dL (8.5-10.3); MAGNESIUM 1.8 mg/dL (1.7-2.8); POTASSIUM 4.2 mmol/L (3.5-5.0); TOTAL PROTEIN 7.7 g/dL (6.7-8.2)
[2020-10-26] MEDS ORDERED: LORazepam 2 MG/ML VIAL IM STA (07:40)
[2020-10-26] MEDS ORDERED: ONDANSETRON ODT 4 MG TABLET TL STA (07:40)
== END 2020-10-26 08:30 | disposition home or self-care (01) ==
LOC: ED 06:13
DX: M62.838 Other muscle spasm (principal); M79.652 Pain in left thigh; S80.212A Abrasion, left knee, initial encounter; S80.211A Abrasion, right knee, initial encounter; W01.0XXA Fall on same level from slipping, tripping and stumbling without subsequent striking against object, initial encounter; R11.0 Nausea; R25.1 Tremor, unspecified; I10 Essential (primary) hypertension
CPT/HCPCS: 36415; 80053; 82550; 83605; 83735; 96372; 99283; 99284; A9270; J2060; Q0162

== ENCOUNTER 2020-10-31 12:44 | Outpatient (CLI) | payer MEDICARE, OTHER ==
--- NOTE | 2020-10-31 13:09 | XRAY Report ---
PROCEDURE: Chest 2 View X-Ray INDICATIONS: Cough TECHNIQUE: 2 view(s) of the chest. COMPARISON: None. FINDINGS: Surgical changes and devices: Median sternotomy changes. Lungs and pleura: No pleural effusions or pneumothorax. Lungs are clear. Mediastinum: Mediastinal contours are normal. Heart size is normal. Bones and chest wall: No suspicious bony abnormalities. Soft tissues appear unremarkable. IMPRESSION: No acute cardiopulmonary process demonstrated radiographically. Reviewed by: Sudarshan Calderon MD on 10/31/2020 1:08 PM PDT Approved by: Sudarshan Calderon MD on 10/31/2020 1:08 PM PDT Station ID: [id number]
== END 2020-10-31 12:45 | disposition home or self-care (01) ==
LOC: DI 12:44
PROVIDERS: ATTEND Internal Medicine
DX: R05 Cough (principal)

== ENCOUNTER 2020-11-04 17:43 | Outpatient (CLI) | payer OTHER ==
--- OUTSIDE RECORDS SUMMARY | 2020-11-11 23:08 | EXTERNAL MEDICAL SUMMARY RPT | Continuity of Care Document ---
:1945 Demographics Phone Unavailable Preferred Language Nepali Marital Status Unknown Christianity Affiliation Unknown Race Unknown Ethnic Group Unknown Author Organization [facility] Address [address] [phone] Phone Care Team Providers Name Role Phone Webb Unavailable Unavailable Dannhaur Unavailable Unavailable Dannhaur Unavailable Unavailable Thorpe Unavailable Unavailable Problems date description facility [id number] Opiate W/D [employer] [id number] Displaced bimalleolar fracture of right [facility] lower leg, initial e [id number] Anemia, unspecified [facility] [id number] Iron deficiency anemia, unspecified [facility] Medications date description facility [id number] Acetaminophen 325 MG / Oxycodone Hydroc hloride 5 MG [facility] Oral Tablet [id number] Acetaminophen 325 MG / Oxycodone Hydroc hloride 5 MG [facility] Oral Tablet 55747178 Acetaminophen 325 MG / Oxycodone Hydroc hloride 5 MG [facility] Oral Tablet 81816664 Oxycodone Hydrochloride 5 MG Oral Table t [facility] 45071089 Acetaminophen 325 MG Oral Tablet [facility] 41457783 0.4 ML Enoxaparin sodium 100 MG/ML Pref illed Syringe [facility] Procedures date description facility [id number] [facility] date description facility [id number] [facility] date description facility [id number] [facility] date description facility [id number] [facility] date description facility [id number] [facility] date description facility [id number] [facility] date description facility [id number] [facility] date description facility [id number] [facility] date description facility [id number] [facility] date description facility [id number] [facility] date description facility [id number] [facility] date description facility [id number] [facility] date description facility [id number] [facility] date description facility [id number] [facility] date description facility [id number] [facility] date description facility [id number] [facility] date description facility [id number] [facility] Vital Signs date measurement value source 56222455 BMI 27.9 kg/m2 26132599 BP_diastolic 69 mm[Hg] 31246757 BP_systolic 150 mm[Hg] 29902180 heart_rate 77 /min 53018260 height_metric 185.42 cm 83306748 height_standard 73 in 02011192 respiration_rate 18 /min 20200816 temperature_metric 36.78 C 20200816 temperature_standard 98.2 F 20200816 weight_metric 43.62 kg 20200816 weight_standard 96.16 lb date measurement value source 20200828 BMI 28.0 kg/m2 20200828 BP_diastolic 69 mm[Hg] 20200828 BP_systolic 159 mm[Hg] 20200828 heart_rate 64 /min 20200828 height_metric 185.42 cm 20200828 height_standard 73 in 20200828 respiration_rate 20 /min 20200828 temperature_metric 36.44 C 20200828 temperature_standard 97.6 F 20200828 weight_metric 43.82 kg 20200828 weight_standard 96.61 lb date measurement value source 20200909 BMI 27.7 kg/m2 20200909 BP_diastolic 84 mm[Hg] 20200909 BP_systolic 176 mm[Hg] 20200909 heart_rate 90 /min 20200909 height_metric 185.42 cm 20200909 height_standard 73 in 20200909 respiration_rate 20 /min 20200909 temperature_metric 36.78 C 20200909 temperature_standard 98.2 F 20200909 weight_metric 43.21 kg 20200909 weight_standard 95.25 lb date measurement value source 20201031 BMI 27.9 kg/m2 20201031 height_metric 185.42 cm 20201031 height_standard 73 in 20201031 temperature_metric 36.56 C 20201031 temperature_standard 97.8 F 20201031 BMI 27.9 kg/m2 20201031 BMI 27.9 kg/m2 20201031 BP_diastolic 59 mm[Hg] 20201031 BP_systolic 123 mm[Hg] 20201031 heart_rate 69 /min 20201031 height_metric 185.42 cm 20201031 height_standard 73 in 20201031 respiration_rate 20 /min 20201031 temperature_metric 36.56 C 20201031 temperature_standard 97.8 F 20201031 weight_metric 43.62 kg 20201031 weight_standard 96.16 lb date measurement value source 20201104 BP_diastolic 40 mm[Hg] 20201104 BP_systolic 72 mm[Hg] 20201104 heart_rate 59 /min 20201104 respiration_rate 14 /min 20201104 weight_metric 44.71 kg 20201104 weight_standard 98.57 lb date measurement value source 20201105 height_metric 185.42 cm 20201105 height_standard 73 in 20201105 weight_metric 44.71 kg 20201105 weight_standard 98.57 lb date measurement value source 20201106 BP_diastolic 90 mm[Hg] 20201106 BP_systolic 121 mm[Hg] 20201106 heart_rate 96 /min 20201106 respiration_rate 18 /min 20201106 temperature_metric 36.78 C 20201106 temperature_standard 98.2 F date measurement value source 20201107 BMI 27.6 kg/m2 20201107 BP_diastolic 86 mm[Hg] 20201107 BP_systolic 161 mm[Hg] 20201107 heart_rate 110 /min 20201107 height_metric 182.88 cm 20201107 height_standard 72 in 20201107 respiration_rate 24 /min 20201107 temperature_metric 37.5 C 20201107 temperature_standard 99.5 F 20201107 weight_metric 41.97 kg 20201107 weight_standard 92.53 lb Social History date description facility [id number]
== END 2020-11-04 17:44 | disposition short-term general hospital (02) ==
LOC: EMS 17:43
DX: S99.911A Unspecified injury of right ankle, initial encounter (principal); W18.30XA Fall on same level, unspecified, initial encounter; Y92.002 Bathroom of unspecified non-institutional (private) residence as the place of occurrence of the external cause
CPT/HCPCS: A0425; A0427

== ENCOUNTER 2020-11-07 08:03 | Outpatient (CLI) | payer OTHER ==
--- OUTSIDE RECORDS SUMMARY | 2020-11-12 01:56 | EXTERNAL MEDICAL SUMMARY RPT | Continuity of Care Document ---
:1945 Demographics Phone Unavailable Preferred Language Greenlandic Marital Status Unknown Bahai Affiliation Unknown Race Unknown Ethnic Group Unknown Author Organization [facility] Address [address] [phone] Phone Care Team Providers Name Role Phone Webb Unavailable Unavailable Dannhaur Unavailable Unavailable Thorpe Unavailable Unavailable Dannhaur Unavailable Unavailable Problems date description facility [id number] Opiate W/D [employer] 70332140 Displaced bimalleolar fracture of right [facility] lower leg, initial e 89289276 Anemia, unspecified [facility] 62871953 Iron deficiency anemia, unspecified [facility] Medications date description facility 20200816 Acetaminophen 325 MG / Oxycodone Hydroc hloride 5 MG [facility] Oral Tablet 61758977 Acetaminophen 325 MG / Oxycodone Hydroc hloride 5 MG [facility] Oral Tablet 91145407 Acetaminophen 325 MG / Oxycodone Hydroc hloride 5 MG [facility] Oral Tablet 07002985 Oxycodone Hydrochloride 5 MG Oral Table t [facility] 64244432 Acetaminophen 325 MG Oral Tablet [facility] 22546963 0.4 ML Enoxaparin sodium 100 MG/ML Pref illed Syringe [facility] Procedures date description facility [id number] [facility] date description facility [id number] [facility] date description facility [id number] [facility] date description facility [id number] [facility] date description facility [id number] [facility] date description facility [id number] [facility] date description facility [id number] [facility] date description facility [id number] [facility] date description facility [id number] [facility] date description facility [id number] [facility] date description facility [id number] [facility] date description facility 81356379 [facility] date description facility [id number] [facility] date description facility [id number] [facility] date description facility [id number] [facility] date description facility [id number] [facility] date description facility [id number] [facility] Vital Signs date measurement value source 37352159 BMI 27.9 kg/m2 36286811 BP_diastolic 69 mm[Hg] 48543757 BP_systolic 150 mm[Hg] 64562672 heart_rate 77 /min 93574785 height_metric 185.42 cm 22471731 height_standard 73 in 58150440 respiration_rate 18 /min 20200816 temperature_metric 36.78 C [...] 92.53 lb Social History date description facility [id number]
== END 2020-11-07 08:04 | disposition short-term general hospital (02) ==
LOC: EMS 08:03
DX: M79.645 Pain in left finger(s) (principal); M79.602 Pain in left arm; M54.2 Cervicalgia
CPT/HCPCS: A0425; A0429

== ENCOUNTER 2021-06-05 10:46 | Outpatient (CLI) | payer MEDICARE ==
--- NOTE | 2021-06-05 17:01 | XRAY Report ---
PROCEDURE: Chest 2 View X-Ray INDICATIONS: COUGH TECHNIQUE: 2 view(s) of the chest. COMPARISON: Chest x-ray report 10/31/2020 FINDINGS: Surgical changes and devices: Sternal wires and cervical fusion is noted. Lungs and pleura: Patchy right basilar opacity is present. Mediastinum: Mediastinal contours are normal. Heart size is normal. Bones and chest wall: No suspicious bony abnormalities. Soft tissues appear unremarkable. IMPRESSION: Patchy right basilar opacity suspicious for developing pneumonia. Reviewed by: Zeina Saavedra MD on 06/05/2021 4:59 PM PDT Approved by: Zeina Saavedra MD on 06/05/2021 4:59 PM PDT Station ID: [id number]
== END 2021-06-05 10:47 | disposition home or self-care (01) ==
LOC: DI 10:46
PROVIDERS: ATTEND Internal Medicine
DX: R05.9 Cough, unspecified (principal)

== ENCOUNTER 2021-10-07 20:55 | Outpatient (CLI) | payer MEDICARE | END 2021-10-07 20:56 | disposition short-term general hospital (02) | LOC: EMS 20:55 | DX: R42 Dizziness and giddiness (principal); R11.2 Nausea with vomiting, unspecified; R10.9 Unspecified abdominal pain; R07.9 Chest pain, unspecified | CPT/HCPCS: A0425; A0427 ==

== ENCOUNTER 2021-12-07 19:34 | Outpatient (CLI) | payer MEDICARE | END 2021-12-07 19:35 | disposition short-term general hospital (02) | LOC: EMS 19:34 | DX: M54.9 Dorsalgia, unspecified (principal) | CPT/HCPCS: A0425; A0429 ==

== ENCOUNTER 2022-02-11 03:28 | Emergency (ER) | payer MEDICARE ==
[2022-02-11] MEDS ORDERED: ONDANSETRON 4 MG/2 ML VIAL IVP STA (03:55)
[2022-02-11] MEDS ORDERED: fentaNYL 100 MCG/2 ML VIAL IVP STA (03:55)
[2022-02-11] MEDS ORDERED: SODIUM CHLORIDE 0.9% 500 ML IV STA (03:55)
--- OUTSIDE RECORDS SUMMARY | 2022-02-11 04:01 | EXTERNAL MEDICAL SUMMARY RPT | Continuity of Care Document ---
:1945 Author Organization [facility] Address [address] [place] [address] Phone Allergies and Intolerances date description facility type (no date) [facility] (unknown) (no date) Harxjqi-NQJ-UcL Reductase Inhibitor [facility] (unknown) (no date) Sulfa (Sulfonamide Antibiotics) [facility] (unknown) (no date) buprenorphine [facility] (unknown) (no date) celecoxib [facility] (unknown) (no date) diazepam [facility] (unknown) (no date) fentanyl [facility] (unknown) (no date) hydromorphone [facility] (unknown) (no date) hyoscyamine [facility] (unknown) (no date) latex [facility] (unknown) (no date) morphine [facility] (unknown) (no date) varenicline [facility] (unknown) Encounters No information. Functional Status No information. Immunizations No information. Medications date description facility +0000 Acetaminophen 325 MG / Oxycodone [facility] Hydrochloride 5 MG Oral Tablet +0000 Oxycodone Hydrochloride 5 MG Oral [facility] +0000 Oxycodone Hydrochloride 5 MG Oral [facility] +0000 Docusate Sodium 100 MG Oral Capsule I [facility] [id number]+0000 Methocarbamol 500 MG Oral Tablet [facility] [id number]+0000 Prednisone 50 MG Oral Tablet [facility] [id number]+0000 montelukast 10 MG Oral Tablet [facility] [id number]+0000 Prednisone 20 MG Oral Tablet [facility] 73440573278023+0000 Furosemide 40 MG Oral Tablet [facility] 48097897529382+0000 Lisinopril 10 MG Oral Tablet [facility] [id number]+0000 Albuterol 0.417 MG/ML Inhalant [facility] [id number]+0000 Albuterol 0.417 MG/ML Inhalant [facility] [id number]+0000 Amoxicillin 875 MG / Clavulanate 125 M G Oral [facility] Tablet [id number]+0000 Diclofenac Sodium 0.01 MG/MG Topical G el [facility] 54337774412159+0000 Trazodone Hydrochloride 100 MG Oral [facility] 25391371382448+0000 24 HR metoprolol succinate 100 MG Exte nded [facility] Release Tablet [id number]+0000 Clonidine Hydrochloride 0.1 MG Oral [facility] 61259445057149+0000 Acetaminophen 300 MG / Codeine Phospha te 30 [facility] MG Oral Tablet Problems No information. Procedures date description facility +0000 Diagnosis [facility] [id number]+0000 [facility] [id number]+0000 [facility] [id number]+0000 [facility] [id number]+0000 [facility] [id number]+0000 [facility] [id number]+0000 [facility] [id number]+0000 [facility] [id number]+0000 [facility] [id number]+0000 [facility] Results/Labs test date author facility value unit interpret ation Result panel 1 (unknown) (no (unknown) (unknown) (no value) (units (unk nown) date) unknown) (unknown) (no (unknown) (unknown) [address] [place] [address] (units (unknown) date) unknown) (unknown) (no (unknown) (unknown) [place], [place] (units ( unknown) date) [id number] unknown) (unknown) (no (unknown) (unknown) [facility] (units (unknown) date) unknown) (unknown) (no (unknown) (unknown) Signed (units (unkno wn) date) unknown) (unknown) (no (unknown) (unknown) XRay Report (units (un known) date) unknown) (unknown) (no (unknown) (unknown) (no value) (units (unk nown) date) unknown) (unknown) (no (unknown) (unknown) 11/19/21 (units (unkno wn) date) unknown) (unknown) (no (unknown) (unknown) Approved by: (units (u nknown) date) mohamud Morgan M.D. on 11/19/2021 at 11:56 (unknown) (no (unknown) (unknown) Bones and chest (units (unknown) date) wall: No unknown) suspicious bony abnormalities. Soft tissues appear (unknown) (no (unknown) (unknown) COMPARISON: (units (un known) date) [facility], unknown) CR, XR CHEST 1V, 10/07/2021, 21:56. (unknown) (no (unknown) (unknown) Dictated by: (units (u nknown) date) Andre Spear, unknown) Clifford on 11/19/2021 at 11:55 (unknown) (no (unknown) (unknown) FINDINGS: (units (unkn own) date) unknown) (unknown) (no (unknown) (unknown) IMPRESSION: No (units (unknown) date) acute unknown) cardiopulmonary abnormality. (unknown) (no (unknown) (unknown) INDICATIONS: (units (u nknown) date) shortness of unknown) breath (unknown) (no (unknown) (unknown) Lungs and pleura: (units (unknown) date) Coarsened unknown) interstitial markings. No consolidation, pleural (unknown) (no (unknown) (unknown) Mediastinum: (units (u nknown) date) Mediastinal unknown) contours are normal. Heart size is normal. (unknown) (no (unknown) (unknown) Surgical changes (units (unknown) date) and devices: unknown) Redemonstrated sternotomy wires, evidence of (unknown) (no (unknown) (unknown) TECHNIQUE: 2 (units ( unknown) date) views of the chest unknown) were acquired. (unknown) (no (unknown) (unknown) cervical spine (units (unknown) date) hardware. unknown) (unknown) (no (unknown) (unknown) or pneumothorax. (units (unknown) date) unknown) (unknown) (no (unknown) (unknown) unremarkable. (units ( unknown) date) unknown) (unknown) (no (unknown) (unknown) Accession Number: (units (unknown) date) [id number] unknown) (unknown) (no (unknown) (unknown) Age/Sex: 76 / M (units (unknown) date) Date of Service: unknown) (unknown) (no (unknown) (unknown) CABG, and (units (unkn own) date) unknown) (unknown) (no (unknown) (unknown) : 1945 (units (unknown) date) Acct:[id number] unknown) (unknown) (no (unknown) (unknown) Loc: ED (units (unkno wn) date) unknown) (unknown) (no (unknown) (unknown) [id number] (units (unk nown) date) unknown) (unknown) (no (unknown) (unknown) Ordering (units (unkno wn) date) Provider: unknown) Bridgett Fletcher D.O. (unknown) (no (unknown) (unknown) PROCEDURE: XR (units (unknown) date) CHEST 2V unknown) (unknown) (no (unknown) (unknown) Patient: (units (unkno wn) date) Dominic Viveros unknown) MR#: (unknown) (no (unknown) (unknown) Procedure: XR (units ( unknown) date) chest 2V unknown) (unknown) (no (unknown) (unknown) effusions (units (unkn own) date) unknown) Result panel 2 (unknown) (no date) (unknown) (unknown) Negative (units (unkn own) unknown) Result panel 3 (unknown) (no date) (unknown) (unknown) > 60 mL/min (unkn own) (unknown) (no date) (unknown) (unknown) 0.5 mg/dL (unkn own) (unknown) (no date) (unknown) (unknown) 0.78 mg/dL (unkn own) (unknown) (no date) (unknown) (unknown) 1.1 % (unkn own) (unknown) (no date) (unknown) (unknown) 1.5 (units unknown) (unknown) (unknown) (no date) (unknown) (unknown) 100 /uL (unkn own) (unknown) (no date) (unknown) (unknown) 103 mmol/L (unkn own) (unknown) (no date) (unknown) (unknown) 1100 /uL (unkn own) (unknown) (no date) (unknown) (unknown) 13 mg/dL (unkn own) (unknown) (no date) (unknown) (unknown) 13.5 % (unkn own) (unknown) (no date) (unknown) (unknown) 14.4 g/dL (unkn own) (unknown) (no date) (unknown) (unknown) 140 mmol/L (unkn own) (unknown) (no date) (unknown) (unknown) 16.7 (units unknown) (unknown) (unknown) (no date) (unknown) (unknown) 19.9 % (unkn own) (unknown) (no date) (unknown) (unknown) 201 mg/dL (unkn own) (unknown) (no date) (unknown) (unknown) 207 X10 3/uL (unkn own) (unknown) (no date) (unknown) (unknown) 25 mmol/L (unkn own) (unknown) (no date) (unknown) (unknown) 26 IU/L (unkn own) (unknown) (no date) (unknown) (unknown) 3.1 g/dL (unkn own) (unknown) (no date) (unknown) (unknown) 3.7 mmol/L (unkn own) (unknown) (no date) (unknown) (unknown) 31 IU/L (unkn own) (unknown) (no date) (unknown) (unknown) 31.4 PG (unkn own) (unknown) (no date) (unknown) (unknown) 33.4 % (unkn own) (unknown) (no date) (unknown) (unknown) 3400 /uL (unkn own) (unknown) (no date) (unknown) (unknown) 4.1 mmol/L (unkn own) (unknown) (no date) (unknown) (unknown) 4.6 g/dL (unkn own) (unknown) (no date) (unknown) (unknown) 4.60 X10 6/uL (unkn own) (unknown) (no date) (unknown) (unknown) 400 /uL (unkn own) (unknown) (no date) (unknown) (unknown) 400 /uL (unkn own) (unknown) (no date) (unknown) (unknown) 43.2 % (unkn own) (unknown) (no date) (unknown) (unknown) 5.3 X10 3/uL (unkn own) (unknown) (no date) (unknown) (unknown) 61 U/L (unkn own) (unknown) (no date) (unknown) (unknown) 63.5 % (unkn own) (unknown) (no date) (unknown) (unknown) 7.6 % (unkn own) (unknown) (no date) (unknown) (unknown) 7.7 g/dL (unkn own) (unknown) (no date) (unknown) (unknown) 7.9 % (unkn own) (unknown) (no date) (unknown) (unknown) 8.5 mg/dL (unkn own) (unknown) (no date) (unknown) (unknown) 93.9 fL (unkn own) Result panel 4 (unknown) (no date) (unknown) (unknown) 1.8 mg/dL (unkn own) Result panel 5 (unknown) (no (unknown) (unknown) (no value) (units (unk nown) date) unknown) (unknown) (no (unknown) (unknown) *Please continue to (unit s (unknown) date) take your regular unknown) medications as directed. (unknown) (no (unknown) (unknown) Date of Service: (units (unknown) date) 11/19/21 unknown) (unknown) (no (unknown) (unknown) (no value) (units (unk nown) date) unknown) (unknown) (no (unknown) (unknown) 11/19/21 11:30 (units (unknown) date) unknown) (unknown) (no (unknown) (unknown) 1 puff INHALATION (units (unknown) date) Q4-6H PRN (Reason: unknown) shortness of breath or wheezing) Qty: 15 (unknown) (no (unknown) (unknown) 1 spray Intranasal (units (unknown) date) DAILY PRN (Reason: unknown) Allergy Symptoms) Qty: 0 0RF (unknown) (no (unknown) (unknown) 1 tab PO DAILY Qty: (unit s (unknown) date) 0 0RF unknown) (unknown) (no (unknown) (unknown) 1 tab PO Q6HR PRN (units (unknown) date) (Reason: Back Pain) unknown) 0RF (unknown) (no (unknown) (unknown) 10 mg PO DAILY 0RF (units (unknown) date) unknown) (unknown) (no (unknown) (unknown) 10 mg PO Q4-5H PRN (units (unknown) date) (Reason: Pain, unknown) Severe (7-10)) Qty: 60 0RF (unknown) (no (unknown) (unknown) 100 mg PO BID 0RF (units (unknown) date) unknown) (unknown) (no (unknown) (unknown) 100 mg PO TID PRN (units (unknown) date) (Reason: cough) Qty: unknown) 14 0RF (unknown) (no (unknown) (unknown) 2.5 mg PO DAILY 0RF (unit s (unknown) date) unknown) (unknown) (no (unknown) (unknown) 25 mg PO QID PRN (units (unknown) date) (Reason: vertigo) unknown) Qty: 30 0RF (unknown) (no (unknown) (unknown) 3 ml Inhalation Q6H (unit s (unknown) date) PRN (Reason: unknown) Shortness Of Breath) 0RF (unknown) (no (unknown) (unknown) 300 mg PO BID Qty: (units (unknown) date) 20 0RF unknown) (unknown) (no (unknown) (unknown) 325 mg PO DAILY 0RF (unit s (unknown) date) unknown) (unknown) (no (unknown) (unknown) 40 mg PO DAILY 0RF (units (unknown) date) unknown) (unknown) (no (unknown) (unknown) 400 tab PO BEDTIME (units (unknown) date) 0RF unknown) (unknown) (no (unknown) (unknown) 650 mg PO Q6H PRN (units (unknown) date) (Reason: pain) Qty: unknown) 60 0RF (unknown) (no (unknown) (unknown) ANXIETY, (units (unkno wn) date) unknown) (unknown) (no (unknown) (unknown) Allergies (units (unkn own) date) unknown) (unknown) (no (unknown) (unknown) DIZZINESS (units (unkn own) date) unknown) (unknown) (no (unknown) (unknown) Documented by: (units (unknown) date) ATAYLOR unknown) (unknown) (no (unknown) (unknown) Documented by: (units (unknown) date) JFREELA unknown) (unknown) (no (unknown) (unknown) ED Orders (units (unkn own) date) unknown) (unknown) (no (unknown) (unknown) EXPOSURE (units (unkno wn) date) unknown) (unknown) (no (unknown) (unknown) Emergency Report (units (unknown) date) unknown) (unknown) (no (unknown) (unknown) Home Medications (units (unknown) date) unknown) (unknown) (no (unknown) (unknown) INHALE 1 VIAL PER (units (unknown) date) NEBULIZER EVERY 6 unknown) HOURS NEEDED (unknown) (no (unknown) (unknown) [facility] (units (unknown) date) [address] unknown) [place] [address] (unknown) (no (unknown) (unknown) JERKING, (units (unkno wn) date) unknown) (unknown) (no (unknown) (unknown) Lab Results (units (un known) date) unknown) (unknown) (no (unknown) (unknown) Label Comments: (units (unknown) date) unknown) (unknown) (no (unknown) (unknown) Last Admin: (units (un known) date) 11/19/21 12:42 unknown) Dose: 3 ml (unknown) (no (unknown) (unknown) Last Admin: (units (un known) date) 11/19/21 12:53 unknown) Dose: 1,000 mls/hr (unknown) (no (unknown) (unknown) Last Admin: (units (un known) date) 11/19/21 12:53 unknown) Dose: 125 mg (unknown) (no (unknown) (unknown) Last Admin: (units (un known) date) 11/19/21 12:54 unknown) Dose: 0.5 mg (unknown) (no (unknown) (unknown) Last Admin: (units (un known) date) 11/19/21 12:54 unknown) Dose: 1 tab (unknown) (no (unknown) (unknown) MINUTES (units (unkno wn) date) unknown) (unknown) (no (unknown) (unknown) NAUSEA W/I (units (unk nown) date) unknown) (unknown) (no (unknown) (unknown) PRN Reason: (units (un known) date) Shortness Of Breath unknown) (unknown) (no (unknown) (unknown) Previous Rx's (units ( unknown) date) unknown) (unknown) (no (unknown) (unknown) Spouse Milana called (unit s (unknown) date) + reported patient unknown) not taking it regularly. (unknown) (no (unknown) (unknown) Stop: 11/19/21 (units (unknown) date) 12:37 unknown) (unknown) (no (unknown) (unknown) Stop: 11/19/21 (units (unknown) date) 12:40 unknown) (unknown) (no (unknown) (unknown) Stop: 11/19/21 (units (unknown) date) 12:42 unknown) (unknown) (no (unknown) (unknown) Stop: 11/19/21 (units (unknown) date) 13:08 unknown) (unknown) (no (unknown) (unknown) Vital Signs - 8 hr (units (unknown) date) unknown) (unknown) (no (unknown) (unknown) W/EXTENDED (units (unk nown) date) unknown) (unknown) (no (unknown) (unknown) [ ] New medication (units (unknown) date) prescriptions sent unknown) to your pharmacy: [ ] (unknown) (no (unknown) (unknown) [ ] New medication (units (unknown) date) written as a paper unknown) prescription (unknown) (no (unknown) (unknown) [ ] No new (units (unk nown) date) medications given unknown) (unknown) (no (unknown) (unknown) patient states (units (unknown) date) weaning off. unknown) (unknown) (no (unknown) (unknown) take 1 tablet by (units (unknown) date) mouth once daily unknown) (unknown) (no (unknown) (unknown) take 1 tablet by (units (unknown) date) mouth twice a day unknown) (unknown) (no (unknown) (unknown) (no value) (units (unk nown) date) unknown) (unknown) (no (unknown) (unknown) 11/19/21 11/19/21 (units (unknown) date) 11/19/21 Range/Units unknown) (unknown) (no (unknown) (unknown) 11/19/21 11/19/21 (units (unknown) date) Range/Units unknown) (unknown) (no (unknown) (unknown) 10:56 11:30 11:30 (units (unknown) date) unknown) (unknown) (no (unknown) (unknown) 11:30 11:30 (units (un known) date) unknown) (unknown) (no (unknown) (unknown) Zyrtec 10 mg (units (u nknown) date) Capsule unknown) (unknown) (no (unknown) (unknown) acetaminophen (units ( unknown) date) [Athenol] 325 mg unknown) tablet (unknown) (no (unknown) (unknown) acetaminophen-codei (unit s (unknown) date) ne 300-30 mg tablet unknown) (unknown) (no (unknown) (unknown) benzonatate (units (un known) date) [Tessalon Perles] unknown) 100 mg capsule (unknown) (no (unknown) (unknown) cefdinir 300 mg (units (unknown) date) capsule unknown) (unknown) (no (unknown) (unknown) ferrous sulfate 325 (unit s (unknown) date) mg (65 mg iron) unknown) tablet,delayed release (DR/EC) (unknown) (no (unknown) (unknown) fluticasone (units (un known) date) propionate 16 GM unknown) spray,suspension (unknown) (no (unknown) (unknown) furosemide [Lasix] (units (unknown) date) 40 mg tablet unknown) (unknown) (no (unknown) (unknown) glipizide (units (unkn own) date) [Glucotrol XL] 2.5 unknown) mg tablet extended release 24 hr (unknown) (no (unknown) (unknown) levalbuterol HCl (units (unknown) date) 1.25 mg/3 mL unknown) solution for nebulization (unknown) (no (unknown) (unknown) levalbuterol (units (u nknown) date) tartrate [Xopenex unknown) HFA] 45 mcg/actuation HFA aerosol inhaler (unknown) (no (unknown) (unknown) meclizine 25 mg (units (unknown) date) tablet unknown) (unknown) (no (unknown) (unknown) metoprolol tartrate (unit s (unknown) date) 100 mg tablet unknown) (unknown) (no (unknown) (unknown) multivitamin (units (u nknown) date) [Multiple Vitamins] unknown) 1 EACH tablet (unknown) (no (unknown) (unknown) oxycodone 5 mg (units (unknown) date) Tablet unknown) (unknown) (no (unknown) (unknown) trazodone 100 mg (units (unknown) date) tablet unknown) (unknown) (no (unknown) (unknown) 11/19/21 (units (unkno wn) date) unknown) (unknown) (no (unknown) (unknown) Bronchiectasis (units (unknown) date) type: with acute unknown) exacerbation Qualified Code(s): J47.1 - (unknown) (no (unknown) (unknown) Medication (units (unk nown) date) Instructions unknown) Recorded (unknown) (no (unknown) (unknown) Medication (units (unk nown) date) Instructions unknown) Recorded Confirmed (unknown) (no (unknown) (unknown) (Athenol) (units (unkn own) date) unknown) (unknown) (no (unknown) (unknown) (Tessalon Perles) (units (unknown) date) unknown) (unknown) (no (unknown) (unknown) (Xopenex HFA) (units ( unknown) date) unknown) (unknown) (no (unknown) (unknown) *If you do not have (unit s (unknown) date) a primary care unknown) provider please contact [phone] to (unknown) (no (unknown) (unknown) *Please follow up (units (unknown) date) with your primary unknown) care provider in 2-3 days, call for an (unknown) (no (unknown) (unknown) *Return to (units (unk nown) date) Emergency Department unknown) if you should have any new, worsening or (unknown) (no (unknown) (unknown) *What to do: (units (u nknown) date) unknown) (unknown) (no (unknown) (unknown) *You have been (units (unknown) date) diagnosed with [ ] unknown) (unknown) (no (unknown) (unknown) [id number] (units (unkn own) date) unknown) (unknown) (no (unknown) (unknown) 11/19/21 10:56 (units (unknown) date) unknown) (unknown) (no (unknown) (unknown) 11/19/21 10:57 (units (unknown) date) unknown) (unknown) (no (unknown) (unknown) 11/19/21 11:30 (units (unknown) date) unknown) (unknown) (no (unknown) (unknown) 11/19/21 12:36 (units (unknown) date) unknown) (unknown) (no (unknown) (unknown) 0RF (units (unkno wn) date) unknown) (unknown) (no (unknown) (unknown) 10:50 11/19/21 (units (unknown) date) unknown) (unknown) (no (unknown) (unknown) 11:20 11/19/21 (units (unknown) date) unknown) (unknown) (no (unknown) (unknown) 11:22 (units (unkno wn) date) unknown) (unknown) (no (unknown) (unknown) 11:30 11/19/21 (units (unknown) date) unknown) (unknown) (no (unknown) (unknown) 12:42 (units (unkno wn) date) unknown) (unknown) (no (unknown) (unknown) 76-year-old male (units (unknown) date) former smoker with unknown) history of COPD and hypertension, AFib, (unknown) (no (unknown) (unknown) ALT (<50) IU/L (units (unknown) date) unknown) (unknown) (no (unknown) (unknown) ALT 26 (<50) (units (unknown) date) IU/L unknown) (unknown) (no (unknown) (unknown) ANTIBIOTICS)] (units ( unknown) date) unknown) (unknown) (no (unknown) (unknown) AST (17-59) (units (unknown) date) IU/L unknown) (unknown) (no (unknown) (unknown) AST 31 (17-59) (units (unknown) date) IU/L unknown) (unknown) (no (unknown) (unknown) Achalasia (units (unkn own) date) unknown) (unknown) (no (unknown) (unknown) Activity (units (unkno wn) date) Restrictions/Additio unknown) nal Instructions: (unknown) (no (unknown) (unknown) Age/Sex: 76 / M (units (unknown) date) unknown) (unknown) (no (unknown) (unknown) Albumin (units (unkno wn) date) (3.5-5.0) g/dL unknown) (unknown) (no (unknown) (unknown) Albumin 4.6 (units (unknown) date) (3.5-5.0) g/dL unknown) (unknown) (no (unknown) (unknown) Albumin/Globulin (units (unknown) date) Ratio (1.0-2.8) unknown) (unknown) (no (unknown) (unknown) Albumin/Globulin (units (unknown) date) Ratio 1.5 unknown) (1.0-2.8) (unknown) (no (unknown) (unknown) Albuterol/Ipratropi (unit s (unknown) date) um unknown) (Albuterol/Ipratropi um 3 Ml Ampul) 3 ml INH Q1H PRN (unknown) (no (unknown) (unknown) Alkaline (units (unkno wn) date) Phosphatase unknown) (38-126) U/L (unknown) (no (unknown) (unknown) Alkaline (units (unkno wn) date) Phosphatase 61 unknown) (38-126) U/L (unknown) (no (unknown) (unknown) Allergy/AdvReac (units (unknown) date) Type Severity unknown) Reaction Status Date / Time (unknown) (no (unknown) (unknown) Amoxicillin/Clavula (unit s (unknown) date) marah Potassium unknown) (Amoxicillin/Clav 875/125 Mg) 1 tab PO NOW (unknown) (no (unknown) (unknown) Anginal pain (units (u nknown) date) unknown) (unknown) (no (unknown) (unknown) Antibiotics) (units (u nknown) date) unknown) (unknown) (no (unknown) (unknown) Asthma (units (unkno wn) date) unknown) (unknown) (no (unknown) (unknown) Atrial fibrillation (unit s (unknown) date) unknown) (unknown) (no (unknown) (unknown) BUN (9-20) (units ( unknown) date) mg/dL unknown) (unknown) (no (unknown) (unknown) BUN 13 (9-20) (units (unknown) date) mg/dL unknown) (unknown) (no (unknown) (unknown) BUN/Creatinine (units (unknown) date) Ratio (6-22) unknown) (unknown) (no (unknown) (unknown) BUN/Creatinine (units (unknown) date) Ratio 16.7 unknown) (6-22) (unknown) (no (unknown) (unknown) Baso # (Auto) (units ( unknown) date) (0-100) /uL unknown) (unknown) (no (unknown) (unknown) Baso # (Auto) 100 (unit s (unknown) date) (0-100) /uL unknown) (unknown) (no (unknown) (unknown) Baso % (Auto) (units ( unknown) date) (0-2) % unknown) (unknown) (no (unknown) (unknown) Baso % (Auto) 1.1 (unit s (unknown) date) (0-2) % unknown) (unknown) (no (unknown) (unknown) Blood Pressure (units (unknown) date) unknown) (unknown) (no (unknown) (unknown) Blood Pressure (units (unknown) date) 185/89 H 04/14 unknown) 10:50 (unknown) (no (unknown) (unknown) Blood Pressure (units (unknown) date) 185/89 H 158/88 H unknown) (unknown) (no (unknown) (unknown) Bronchiectasis (units (unknown) date) unknown) (unknown) (no (unknown) (unknown) Bronchiectasis with (unit s (unknown) date) (acute) exacerbation unknown) (unknown) (no (unknown) (unknown) CABG, not on (units (u nknown) date) anticoagulants who unknown) presents at the request of his primary care (unknown) (no (unknown) (unknown) COPD (chronic (units ( unknown) date) obstructive unknown) pulmonary disease) (unknown) (no (unknown) (unknown) COVID19 -Nasal (units (unknown) date) RAPID/Pre-Proc Stat unknown) (unknown) (no (unknown) (unknown) Calcium (units (unkno wn) date) (8.4-10.2) mg/dL unknown) (unknown) (no (unknown) (unknown) Calcium 8.5 (units (unknown) date) (8.4-10.2) mg/dL unknown) (unknown) (no (unknown) (unknown) Carbon Dioxide (units (unknown) date) (22-32) mmol/L unknown) (unknown) (no (unknown) (unknown) Carbon Dioxide (units (unknown) date) 25 (22-32) mmol/L unknown) (unknown) (no (unknown) (unknown) Cervical spinal (units (unknown) date) stenosis unknown) (unknown) (no (unknown) (unknown) Chief Complaint: (units (unknown) date) Shortness of unknown) Breath/Dyspnea (unknown) (no (unknown) (unknown) Chloride (units (o wn) date) (98-107) mmol/L unknown) (unknown) (no (unknown) (unknown) Chloride 103 (units (unknown) date) (98-107) mmol/L unknown) (unknown) (no (unknown) (unknown) Chronic obstructive (unit s (unknown) date) pulmonary disease unknown) (10/22/16) (unknown) (no (unknown) (unknown) Clinical (units (o wn) date) Impression: unknown) (unknown) (no (unknown) (unknown) Complete Blood (units (unknown) date) Count AUTO DIFF Stat unknown) (unknown) (no (unknown) (unknown) Comprehensive (units ( unknown) date) Metabolic Panel Stat unknown) (unknown) (no (unknown) (unknown) Consult to (units () date) Respiratory Therapy unknown) Evaluate + Treat (unknown) (no (unknown) (unknown) Coronary artery (units (unknown) date) disease unknown) (unknown) (no (unknown) (unknown) Course (units (o wn) date) unknown) (unknown) (no (unknown) (unknown) Creatinine (units () date) (0.66-1.25) mg/dL unknown) (unknown) (no (unknown) (unknown) Creatinine 0.78 (units (unknown) date) (0.66-1.25) mg/dL unknown) (unknown) (no (unknown) (unknown) : 1945 (units (unknown) date) Acct:[id number] unknown) (unknown) (no (unknown) (unknown) Kimmy Gomez MD (units (unknown) date) [Primary Care unknown) Provider] - (unknown) (no (unknown) (unknown) Departure (units ( own) date) unknown) (unknown) (no (unknown) (unknown) Discharge Plan (units (unknown) date) unknown) (unknown) (no (unknown) (unknown) Discontinued (units (u nknown) date) Medications unknown) (unknown) (no (unknown) (unknown) EKG-12 Lead Stat (units (unknown) date) unknown) (unknown) (no (unknown) (unknown) ER Physician: (units ( unknown) date) Crew,[facility] unknown) (unknown) (no (unknown) (unknown) Eos # (Auto) (units (u nknown) date) (0-450) /uL unknown) (unknown) (no (unknown) (unknown) Eos # (Auto) 400 (units (unknown) date) (0-450) /uL unknown) (unknown) (no (unknown) (unknown) Eos % (Auto) (units (u nknown) date) (2-4) % unknown) (unknown) (no (unknown) (unknown) Eos % (Auto) 7.6 (units (unknown) date) H (2-4) % unknown) (unknown) (no (unknown) (unknown) Estimated GFR > (units (unknown) date) 60 (>60) mL/min unknown) (unknown) (no (unknown) (unknown) Estimated GFR (units ( unknown) date) (>60) mL/min unknown) (unknown) (no (unknown) (unknown) Exam (units (unkno wn) date) unknown) (unknown) (no (unknown) (unknown) Family History (units (unknown) date) (Reviewed 10/08/21 @ unknown) 01:21 by Demetrio Xie MD) (unknown) (no (unknown) (unknown) General (units (unkno wn) date) unknown) (unknown) (no (unknown) (unknown) GenericComposite[Pl (unit s (unknown) date) t Count (150-400) unknown) X10^3/uL ] (unknown) (no (unknown) (unknown) GenericComposite[Pl (unit s (unknown) date) t Count 207 unknown) (150-400) X10^3/uL ] (unknown) (no (unknown) (unknown) GenericComposite[RB (unit s (unknown) date) C (4.5-5.9) unknown) X10^6/uL ] (unknown) (no (unknown) (unknown) GenericComposite[RB (unit s (unknown) date) C 4.60 (4.5-5.9) unknown) X10^6/uL ] (unknown) (no (unknown) (unknown) GenericComposite[WB (unit s (unknown) date) C (4.5-11.0) unknown) X10^3/uL ] (unknown) (no (unknown) (unknown) GenericComposite[WB (unit s (unknown) date) C 5.3 (4.5-11.0) unknown) X10^3/uL ] (unknown) (no (unknown) (unknown) Globulin (units (unkno wn) date) (1.7-4.1) g/dL unknown) (unknown) (no (unknown) (unknown) Globulin 3.1 (units (unknown) date) (1.7-4.1) g/dL unknown) (unknown) (no (unknown) (unknown) Glucose (80-110) (unit s (unknown) date) mg/dL unknown) (unknown) (no (unknown) (unknown) Glucose 201 H (units (unknown) date) (80-110) mg/dL unknown) (unknown) (no (unknown) (unknown) H/O arthroscopic (units (unknown) date) knee surgery unknown) (11/14/17) (unknown) (no (unknown) (unknown) HPI - SOB/Dyspnea (units (unknown) date) unknown) (unknown) (no (unknown) (unknown) HPI Narrative: (units (unknown) date) unknown) (unknown) (no (unknown) (unknown) Hct (41-53) % (units (unknown) date) unknown) (unknown) (no (unknown) (unknown) Hct 43.2 (units (unk nown) date) (41-53) % unknown) (unknown) (no (unknown) (unknown) Hgb (13.5-17.5) (units (unknown) date) g/dL unknown) (unknown) (no (unknown) (unknown) Hgb 14.4 (units (unk nown) date) (13.5-17.5) g/dL unknown) (unknown) (no (unknown) (unknown) History of Present (units (unknown) date) Illness unknown) (unknown) (no (unknown) (unknown) History of aortic (units (unknown) date) dissection unknown) () (unknown) (no (unknown) (unknown) History of (units (unk nown) date) arthroplasty of unknown) right knee (unknown) (no (unknown) (unknown) 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 (unknown) (no (unknown) (unknown) History of cardiac (units (unknown) date) cath () unknown) (unknown) (no (unknown) (unknown) History of (units (unk nown) date) esophageal surgery unknown) (unknown) (no (unknown) (unknown) History of incision (unit s (unknown) date) and drainage () unknown) (unknown) (no (unknown) (unknown) History of prior (units (unknown) date) ablation treatment unknown) () (unknown) (no (unknown) (unknown) History of surgery (units (unknown) date) unknown) (unknown) (no (unknown) (unknown) Hx of (units (unkno wn) date) cholecystectomy unknown) (unknown) (no (unknown) (unknown) Hx of hernia repair (unit s (unknown) date) unknown) (unknown) (no (unknown) (unknown) Hx of sinus surgery (unit s (unknown) date) unknown) (unknown) (no (unknown) (unknown) Hydromorphone HCl (units (unknown) date) (Hydromorphone 0.5 unknown) Mg Inj) 0.5 mg IV NOW ONE (unknown) (no (unknown) (unknown) Hypertension (units (u nknown) date) unknown) (unknown) (no (unknown) (unknown) INHIBITOR] (units (unk nown) date) unknown) (unknown) (no (unknown) (unknown) Inhibitor MUSCLES (unit s (unknown) date) unknown) (unknown) (no (unknown) (unknown) Initial Vital Signs (unit s (unknown) date) unknown) (unknown) (no (unknown) (unknown) Initial Vital (units ( unknown) date) Signs: unknown) (unknown) (no (unknown) (unknown) Ischemic (units (unkno wn) date) cardiomyopathy unknown) (unknown) (no (unknown) (unknown) Lab Data (units (unkno wn) date) unknown) (unknown) (no (unknown) (unknown) Labs: (units (unkno wn) date) unknown) (unknown) (no (unknown) (unknown) Lactate (units (unkno wn) date) (0.7-2.1) mmol/L unknown) (unknown) (no (unknown) (unknown) Lactate 3.7 H (units (unknown) date) (0.7-2.1) mmol/L unknown) (unknown) (no (unknown) (unknown) Lactate (Lactic (units (unknown) date) Acid) Stat unknown) (unknown) (no (unknown) (unknown) Limitations: no (units (unknown) date) limitations unknown) (unknown) (no (unknown) (unknown) Lymph # (Auto) (units (unknown) date) (2304-3813) /uL unknown) (unknown) (no (unknown) (unknown) Lymph # (Auto) (units (unknown) date) 1100 (5017-7992) unknown) /uL (unknown) (no (unknown) (unknown) Lymph % (Auto) (units (unknown) date) (25-40) % unknown) (unknown) (no (unknown) (unknown) Lymph % (Auto) (units (unknown) date) 19.9 L (25-40) % unknown) (unknown) (no (unknown) (unknown) MCH (26-34) PG (units (unknown) date) unknown) (unknown) (no (unknown) (unknown) MCH 31.4 (units (unk nown) date) (26-34) PG unknown) (unknown) (no (unknown) (unknown) MCHC (30-36) % (units (unknown) date) unknown) (unknown) (no (unknown) (unknown) MCHC 33.4 (units (un known) date) (30-36) % unknown) (unknown) (no (unknown) (unknown) MCV (80-100) fL (unit s (unknown) date) unknown) (unknown) (no (unknown) (unknown) MCV 93.9 (units (unk nown) date) (80-100) fL unknown) (unknown) (no (unknown) (unknown) MDM - SOB/Dyspnea (units (unknown) date) unknown) (unknown) (no (unknown) (unknown) Magnesium (units (unkn own) date) (1.6-2.3) mg/dL unknown) (unknown) (no (unknown) (unknown) Magnesium 1.8 (units (unknown) date) (1.6-2.3) mg/dL unknown) (unknown) (no (unknown) (unknown) Magnesium Stat (units (unknown) date) unknown) (unknown) (no (unknown) (unknown) Measure peak (units (u nknown) date) expiratory flow ONCE unknown) (unknown) (no (unknown) (unknown) Medical History (units (unknown) date) (Reviewed 10/08/21 @ unknown) 01:21 by Demetrio Xie MD) (unknown) (no (unknown) (unknown) Methylprednisolone (units (unknown) date) (Methylprednisolone unknown) 125 Mg/2 Ml Vial) 125 mg IV NOW ONE (unknown) (no (unknown) (unknown) Mode of arrival: (units (unknown) date) Wheelchair unknown) (unknown) (no (unknown) (unknown) [place] # (Auto) (units ( unknown) date) (0-900) /uL unknown) (unknown) (no (unknown) (unknown) [place] # (Auto) 400 (unit s (unknown) date) (0-900) /uL unknown) (unknown) (no (unknown) (unknown) [place] % (Auto) (units ( unknown) date) (3-14) % unknown) (unknown) (no (unknown) (unknown) [place] % (Auto) 7.9 (unit s (unknown) date) (3-14) % unknown) (unknown) (no (unknown) (unknown) Mother (units (unknown) date) Stroke unknown) (unknown) (no (unknown) (unknown) Narcotic dependence (unit s (unknown) date) unknown) (unknown) (no (unknown) (unknown) Neck pain, chronic (units (unknown) date) unknown) (unknown) (no (unknown) (unknown) Neut # (Auto) (units ( unknown) date) (6447-2730) /uL unknown) (unknown) (no (unknown) (unknown) Neut # (Auto) (units ( unknown) date) 3400 (7794-1183) unknown) /uL (unknown) (no (unknown) (unknown) Neut % (Auto) (units ( unknown) date) (50-75) % unknown) (unknown) (no (unknown) (unknown) Neut % (Auto) (units ( unknown) date) 63.5 (50-75) % unknown) (unknown) (no (unknown) (unknown) No Action (units (unkn own) date) unknown) (unknown) (no (unknown) (unknown) ONE (units (unkno wn) date) unknown) (unknown) (no (unknown) (unknown) Ordered: (units (unkno wn) date) unknown) (unknown) (no (unknown) (unknown) Orders (units (unkno wn) date) unknown) (unknown) (no (unknown) (unknown) Patient (units (unkno wn) date) Disposition: Home unknown) (unknown) (no (unknown) (unknown) Patient History (units (unknown) date) unknown) (unknown) (no (unknown) (unknown) Patient: (units (unkno wn) date) Dominic Viveros unknown) MR#: M (unknown) (no (unknown) (unknown) Potassium (units (unkn own) date) (3.4-5.1) mmol/L unknown) (unknown) (no (unknown) (unknown) Potassium 4.1 (units (unknown) date) (3.4-5.1) mmol/L unknown) (unknown) (no (unknown) (unknown) Prescriptions: (units (unknown) date) unknown) (unknown) (no (unknown) (unknown) Pulse Oximetry 95 (units (unknown) date) 11/19/21 10:50 unknown) (unknown) (no (unknown) (unknown) Pulse Oximetry 95 (units (unknown) date) 92 unknown) (unknown) (no (unknown) (unknown) Pulse Oximetry 95 (units (unknown) date) 92 94 unknown) (unknown) (no (unknown) (unknown) Pulse Rate 83 (units (unknown) date) 11/19/21 10:50 unknown) (unknown) (no (unknown) (unknown) Pulse Rate 81 91 H (units (unknown) date) unknown) (unknown) (no (unknown) (unknown) Pulse Rate 83 96 H (units (unknown) date) 92 H unknown) (unknown) (no (unknown) (unknown) Qualifiers: (units (un known) date) unknown) (unknown) (no (unknown) (unknown) RDW (11.6-14.8) (units (unknown) date) % unknown) (unknown) (no (unknown) (unknown) RDW 13.5 (units (unk nown) date) (11.6-14.8) % unknown) (unknown) (no (unknown) (unknown) RT Consult Eval and (unit s (unknown) date) Treat Now unknown) (unknown) (no (unknown) (unknown) Referrals: (units (unk nown) date) unknown) (unknown) (no (unknown) (unknown) Related Data (units (u nknown) date) unknown) (unknown) (no (unknown) (unknown) Respiratory Rate (units (unknown) date) 11/19/21 10:50 unknown) (unknown) (no (unknown) (unknown) Respiratory Rate 21 (unit s (unknown) date) unknown) (unknown) (no (unknown) (unknown) Respiratory Rate 22 (unit s (unknown) date) unknown) (unknown) (no (unknown) (unknown) Result diagrams: (units (unknown) date) unknown) (unknown) (no (unknown) (unknown) S/P CABG x 3 (units (u nknown) date) () unknown) (unknown) (no (unknown) (unknown) S/P cervical spinal (unit s (unknown) date) fusion unknown) (unknown) (no (unknown) (unknown) S/P lumbar fusion (units (unknown) date) unknown) (unknown) (no (unknown) (unknown) SARS-CoV-2 (PCR) (units (unknown) date) (Negative) unknown) (unknown) (no (unknown) (unknown) SARS-CoV-2 (PCR) (units (unknown) date) Negative unknown) (Negative) (unknown) (no (unknown) (unknown) Signed By: (units (unk nown) date) unknown) (unknown) (no (unknown) (unknown) Smoking Status: (units (unknown) date) Former smoker unknown) (unknown) (no (unknown) (unknown) Smoking Status: (units (unknown) date) Former smoker unknown) (unknown) (no (unknown) (unknown) Social History (units (unknown) date) (Reviewed 10/07/21 @ unknown) 22:21 by Ezra Jasmine MD) (unknown) (no (unknown) (unknown) Sodium (137-145) (unit s (unknown) date) mmol/L unknown) (unknown) (no (unknown) (unknown) Sodium 140 (units ( unknown) date) (137-145) mmol/L unknown) (unknown) (no (unknown) (unknown) Sodium Chloride (units (unknown) date) (Normal Saline 0.9%) unknown) 500 mls @ 1,000 mls/hr IV BOLUS ONE (unknown) (no (unknown) (unknown) Source: patient and (unit s (unknown) date) family unknown) (unknown) (no (unknown) (unknown) Stated Complaint: (units (unknown) date) STATES unknown) PNEUMONIA-PHYSICAIN REFERRED (unknown) (no (unknown) (unknown) Kdsmhri-LWM-UkY (units (unknown) date) Reductase AdvReac unknown) Mild WEAK Verified 04/16/21 12:13 (unknown) (no (unknown) (unknown) Substance Use Type: (unit s (unknown) date) does not use unknown) (unknown) (no (unknown) (unknown) Sulfa (Sulfonamide (units (unknown) date) Allergy Mild RASH unknown) Verified 04/16/21 12:13 (unknown) (no (unknown) (unknown) Surgical History (units (unknown) date) (Reviewed 10/08/21 @ unknown) 01:21 by Demetrio Xie MD) (unknown) (no (unknown) (unknown) Temperature (units (un known) date) unknown) (unknown) (no (unknown) (unknown) Temperature 97.8 F (unit s (unknown) date) 11/19/21 10:50 unknown) (unknown) (no (unknown) (unknown) Temperature 97.8 F (units (unknown) date) unknown) (unknown) (no (unknown) (unknown) Time Seen by (units (u nknown) date) Provider: 11/19/21 unknown) 12:02 (unknown) (no (unknown) (unknown) Total Bilirubin (units (unknown) date) (0.2-1.3) mg/dL unknown) (unknown) (no (unknown) (unknown) Total Bilirubin (units (unknown) date) 0.5 (0.2-1.3) unknown) mg/dL (unknown) (no (unknown) (unknown) Total Protein (units ( unknown) date) (6.3-8.2) g/dL unknown) (unknown) (no (unknown) (unknown) Total Protein (units ( unknown) date) 7.7 (6.3-8.2) g/dL unknown) (unknown) (no (unknown) (unknown) Ventricular (units (un known) date) bigeminy unknown) (unknown) (no (unknown) (unknown) Vital Signs (units (un known) date) unknown) (unknown) (no (unknown) (unknown) Vital signs: (units (u nknown) date) unknown) (unknown) (no (unknown) (unknown) XR chest 2V Stat (units (unknown) date) unknown) (unknown) (no (unknown) (unknown) [Embedded Image Not (unit s (unknown) date) Available] unknown) (unknown) (no (unknown) (unknown) [[id number] (units (unknown) date) REDUCTASE unknown) (unknown) (no (unknown) (unknown) [SULFA (SULFONAMIDE (unit s (unknown) date) unknown) (unknown) (no (unknown) (unknown) acetaminophen 300 (units (unknown) date) mg-codeine 30 mg 1 unknown) tab PO Q6HR PRN 10/08/21 10/08/21 (unknown) (no (unknown) (unknown) acetaminophen 325 (units (unknown) date) mg tablet 650 mg PO unknown) Q6H PRN #60 tab 11/06/20 (unknown) (no (unknown) (unknown) alcohol intake (units (unknown) date) frequency: unknown) holidays/special occasions only (unknown) (no (unknown) (unknown) alcohol intake: (units (unknown) date) current unknown) (unknown) (no (unknown) (unknown) appointment. Let (units (unknown) date) them know you were unknown) seen in the Emergency Department and that we (unknown) (no (unknown) (unknown) asked that you be (units (unknown) date) seen for follow-up. unknown) We will electronically transmit a record (unknown) (no (unknown) (unknown) benzonatate 100 mg (units (unknown) date) capsule 100 mg PO unknown) TID PRN #14 cap 03/05/21 (unknown) (no (unknown) (unknown) breath, cough and (units (unknown) date) congestion due to unknown) the seasoal allergies. He has had no fever (unknown) (no (unknown) (unknown) buprenorphine (units ( unknown) date) [BUPRENORPHINE] unknown) AdvReac Mild NAUSEA, Verified 04/16/21 12:13 (unknown) (no (unknown) (unknown) cefdinir 300 mg (units (unknown) date) capsule 300 mg PO unknown) BID #20 cap 10/09/21 (unknown) (no (unknown) (unknown) celecoxib (units (unkn own) date) [CELECOXIB] Allergy unknown) Mild SWELLING Verified 04/16/21 12:13 (unknown) (no (unknown) (unknown) cetirizine 10 mg (units (unknown) date) capsule (Zyrtec) 10 unknown) mg PO DAILY 05/22/19 10/08/21 (unknown) (no (unknown) (unknown) concerning (units (unk nown) date) symptoms, such as unknown) [fever greater than 101F, chills, worsening pain, (unknown) (no (unknown) (unknown) diazepam [From (units (unknown) date) Valium] AdvReac unknown) Confusion Verified 04/16/21 12:13 (unknown) (no (unknown) (unknown) due to coughing (units (unknown) date) ongoing low back unknown) pain which is also worse with coughing. He is (unknown) (no (unknown) (unknown) establish care with [place] (unknown[place] [facility] primary care providers. (unknown) (no (unknown) (unknown) ferrous sulfate 325 (unit s (unknown) date) mg (65 mg 325 mg PO unknown) DAILY 10/19/19 10/08/21 (unknown) (no (unknown) (unknown) fluticasone (units (un known) date) propionate 50 1 unknown) spray INTRANASAL DAILY PRN #0 11/02/17 10/08/21 (unknown) (no (unknown) (unknown) furosemide 40 mg (units (unknown) date) tablet (Lasix) 40 mg unknown) PO DAILY 10/08/21 10/08/21 (unknown) (no (unknown) (unknown) glipizide 2.5 mg (units (unknown) date) tablet, extended 2.5 unknown) mg PO DAILY 10/08/21 10/08/21 (unknown) (no (unknown) (unknown) household members: (units (unknown) date) spouse unknown) (unknown) (no (unknown) (unknown) hyoscyamine (units (un known) date) [HYOSCYAMINE] unknown) AdvReac Mild LEG Verified 04/16/21 12:13 (unknown) (no (unknown) (unknown) iron) (units (unkno wn) date) tablet,delayed unknown) release (unknown) (no (unknown) (unknown) latex [LATEX] (units ( unknown) date) Allergy Mild RASH unknown) Verified 04/16/21 12:13 (unknown) (no (unknown) (unknown) levalbuterol HCl (units (unknown) date) 1.25 mg/3 mL 3 ml unknown) INHALATION Q6H PRN 10/16/18 10/08/21 (unknown) (no (unknown) (unknown) levalbuterol (units (u nknown) date) tartrate 45 1 puff unknown) INHALATION Q4-6H PRN #15 06/22/18 (unknown) (no (unknown) (unknown) mcg/actuation (units ( unknown) date) aerosol inhaler gram unknown) (unknown) (no (unknown) (unknown) mcg/actuation nasal (unit s (unknown) date) unknown) (unknown) (no (unknown) (unknown) meclizine 25 mg (units (unknown) date) tablet 25 mg PO QID unknown) PRN #30 tab 10/09/21 (unknown) (no (unknown) (unknown) medication change (units (unknown) date) or weight gain.? He unknown) denies nausea, vomiting or diarrhea. (unknown) (no (unknown) (unknown) metoprolol tartrate (unit s (unknown) date) 100 mg tablet 100 mg unknown) PO BID 10/16/18 10/08/21 (unknown) (no (unknown) (unknown) multivitamin (units (u nknown) date) (Multiple Vitamins) unknown) 1 tab PO DAILY #0 12/20/16 10/08/21 (unknown) (no (unknown) (unknown) not dizzy nor weak (units (unknown) date) or lightheaded.? He unknown) denies any excertional component, (unknown) (no (unknown) (unknown) of today's note if (units (unknown) date) your PCP is in our unknown) system (unknown) (no (unknown) (unknown) or chills but (units ( unknown) date) states that he is unknown) more tired than usual, has a frontal headache (unknown) (no (unknown) (unknown) oxycodone 5 mg (units (unknown) date) tablet 10 mg PO unknown) Q4-5H PRN #60 tab 11/06/20 (unknown) (no (unknown) (unknown) persistent vomiting (unit s (unknown) date) or other bothersome unknown) symptoms] (unknown) (no (unknown) (unknown) provider for 3 days (unit s (unknown) date) of increased upper unknown) respiratory wheezing, shortness of (unknown) (no (unknown) (unknown) release 24 hr (units ( unknown) date) (Glucotrol XL) unknown) (unknown) (no (unknown) (unknown) solution for (units (u nknown) date) nebulization unknown) (unknown) (no (unknown) (unknown) spray,suspension (units (unknown) date) unknown) (unknown) (no (unknown) (unknown) substance use type: (unit s (unknown) date) does not use unknown) (unknown) (no (unknown) (unknown) tablet (units (unkno wn) date) unknown) (unknown) (no (unknown) (unknown) trazodone 100 mg (units (unknown) date) tablet 400 tab PO unknown) BEDTIME 12/09/17 10/08/21 (unknown) (no (unknown) (unknown) varenicline (units (un known) date) [VARENICLINE] unknown) AdvReac Severe Paranoia Verified 04/16/21 12:13 Result panel 6 (unknown) (no (unknown) (unknown) (no value) (units (unk nown) date) unknown) (unknown) (no (unknown) (unknown) Radiologist's (units ( unknown) date) Impression: unknown) (unknown) (no (unknown) (unknown) *Please continue to (unit s (unknown) date) take your regular unknown) medications as directed. (unknown) (no (unknown) (unknown) Date of Service: (units (unknown) date) 11/19/21 unknown) (unknown) (no (unknown) (unknown) (no value) (units (unk nown) date) unknown) (unknown) (no (unknown) (unknown) 11/19/21 11:30 (units (unknown) date) unknown) (unknown) (no (unknown) (unknown) 1 puff INHALATION (units (unknown) date) Q4-6H PRN (Reason: unknown) shortness of breath or wheezing) Qty: 15 (unknown) (no (unknown) (unknown) 1 spray Intranasal (units (unknown) date) DAILY PRN (Reason: unknown) Allergy Symptoms) Qty: 0 0RF (unknown) (no (unknown) (unknown) 1 tab PO DAILY Qty: (unit s (unknown) date) 0 0RF unknown) (unknown) (no (unknown) (unknown) 1 tab PO Q6HR PRN (units (unknown) date) (Reason: Back Pain) unknown) 0RF (unknown) (no (unknown) (unknown) 10 mg PO DAILY 0RF (units (unknown) date) unknown) (unknown) (no (unknown) (unknown) 10 mg PO Q4-5H PRN (units (unknown) date) (Reason: Pain, unknown) Severe (7-10)) Qty: 60 0RF (unknown) (no (unknown) (unknown) 100 mg PO BID 0RF (units (unknown) date) unknown) (unknown) (no (unknown) (unknown) 100 mg PO TID PRN (units (unknown) date) (Reason: cough) Qty: unknown) 14 0RF (unknown) (no (unknown) (unknown) 2.5 mg PO DAILY 0RF (unit s (unknown) date) unknown) (unknown) (no (unknown) (unknown) 25 mg PO QID PRN (units (unknown) date) (Reason: vertigo) unknown) Qty: 30 0RF (unknown) (no (unknown) (unknown) 3 ml Inhalation Q6H (unit s (unknown) date) PRN (Reason: unknown) Shortness Of Breath) 0RF (unknown) (no (unknown) (unknown) 300 mg PO BID Qty: (units (unknown) date) 20 0RF unknown) (unknown) (no (unknown) (unknown) 325 mg PO DAILY 0RF (unit s (unknown) date) unknown) (unknown) (no (unknown) (unknown) 40 mg PO DAILY 0RF (units (unknown) date) unknown) (unknown) (no (unknown) (unknown) 400 tab PO BEDTIME (units (unknown) date) 0RF unknown) (unknown) (no (unknown) (unknown) 650 mg PO Q6H PRN (units (unknown) date) (Reason: pain) Qty: unknown) 60 0RF (unknown) (no (unknown) (unknown) ANXIETY, (units (unkno wn) date) unknown) (unknown) (no (unknown) (unknown) Allergies (units (unkn own) date) unknown) (unknown) (no (unknown) (unknown) DIZZINESS (units (unkn own) date) unknown) (unknown) (no (unknown) (unknown) Documented by: (units (unknown) date) ATAYLOR unknown) (unknown) (no (unknown) (unknown) Documented by: (units (unknown) date) JFREELA unknown) (unknown) (no (unknown) (unknown) ED Orders (units (unkn own) date) unknown) (unknown) (no (unknown) (unknown) EXPOSURE (units (unkno wn) date) unknown) (unknown) (no (unknown) (unknown) Emergency Report (units (unknown) date) unknown) (unknown) (no (unknown) (unknown) Home Medications (units (unknown) date) unknown) (unknown) (no (unknown) (unknown) INHALE 1 VIAL PER (units (unknown) date) NEBULIZER EVERY 6 unknown) HOURS NEEDED (unknown) (no (unknown) (unknown) [facility] (units (unknown) date) [address] unknown) [place] [address] (unknown) (no (unknown) (unknown) JERKING, (units (unkno wn) date) unknown) (unknown) (no (unknown) (unknown) Lab Results (units (un known) date) unknown) (unknown) (no (unknown) (unknown) Label Comments: (units (unknown) date) unknown) (unknown) (no (unknown) (unknown) Last Admin: (units (un known) date) 11/19/21 12:42 unknown) Dose: 3 ml (unknown) (no (unknown) (unknown) Last Admin: (units (un known) date) 11/19/21 12:53 unknown) Dose: 1,000 mls/hr (unknown) (no (unknown) (unknown) Last Admin: (units (un known) date) 11/19/21 12:53 unknown) Dose: 125 mg (unknown) (no (unknown) (unknown) Last Admin: (units (un known) date) 11/19/21 12:54 unknown) Dose: 0.5 mg (unknown) (no (unknown) (unknown) Last Admin: (units (un known) date) 11/19/21 12:54 unknown) Dose: 1 tab (unknown) (no (unknown) (unknown) MINUTES (units (unkno wn) date) unknown) (unknown) (no (unknown) (unknown) NAUSEA W/I (units (unk nown) date) unknown) (unknown) (no (unknown) (unknown) PRN Reason: (units (un known) date) Shortness Of Breath unknown) (unknown) (no (unknown) (unknown) Previous Rx's (units ( unknown) date) unknown) (unknown) (no (unknown) (unknown) Spouse Milana called (unit s (unknown) date) + reported patient unknown) not taking it regularly. (unknown) (no (unknown) (unknown) Stop: 11/19/21 (units (unknown) date) 12:37 unknown) (unknown) (no (unknown) (unknown) Stop: 11/19/21 (units (unknown) date) 12:40 unknown) (unknown) (no (unknown) (unknown) Stop: 11/19/21 (units (unknown) date) 12:42 unknown) (unknown) (no (unknown) (unknown) Stop: 11/19/21 (units (unknown) date) 13:08 unknown) (unknown) (no (unknown) (unknown) Stop: 11/19/21 (units (unknown) date) 13:16 unknown) (unknown) (no (unknown) (unknown) Stop: 11/19/21 (units (unknown) date) 13:56 unknown) (unknown) (no (unknown) (unknown) Vital Signs - 8 hr (units (unknown) date) unknown) (unknown) (no (unknown) (unknown) W/EXTENDED (units (unk nown) date) unknown) (unknown) (no (unknown) (unknown) [ ] New medication (units (unknown) date) prescriptions sent unknown) to your pharmacy: [ ] (unknown) (no (unknown) (unknown) [ ] New medication (units (unknown) date) written as a paper unknown) prescription (unknown) (no (unknown) (unknown) [ ] No new (units (unk nown) date) medications given unknown) (unknown) (no (unknown) (unknown) patient states (units (unknown) date) weaning off. unknown) (unknown) (no (unknown) (unknown) take 1 tablet by (units (unknown) date) mouth once daily unknown) (unknown) (no (unknown) (unknown) take 1 tablet by (units (unknown) date) mouth twice a day unknown) (unknown) (no (unknown) (unknown) (no value) (units (unk nown) date) unknown) (unknown) (no (unknown) (unknown) 11/19/21 11/19/21 (units (unknown) date) 11/19/21 Range/Units unknown) (unknown) (no (unknown) (unknown) 11/19/21 11/19/21 (units (unknown) date) Range/Units unknown) (unknown) (no (unknown) (unknown) 10:56 11:30 11:30 (units (unknown) date) unknown) (unknown) (no (unknown) (unknown) 11:30 11:30 (units (un known) date) unknown) (unknown) (no (unknown) (unknown) Zyrtec 10 mg (units (u nknown) date) Capsule unknown) (unknown) (no (unknown) (unknown) acetaminophen (units ( unknown) date) [Athenol] 325 mg unknown) tablet (unknown) (no (unknown) (unknown) acetaminophen-codei (unit s (unknown) date) ne 300-30 mg tablet unknown) (unknown) (no (unknown) (unknown) benzonatate (units (un known) date) [Tessalon Perles] unknown) 100 mg capsule (unknown) (no (unknown) (unknown) cefdinir 300 mg (units (unknown) date) capsule unknown) (unknown) (no (unknown) (unknown) ferrous sulfate 325 (unit s (unknown) date) mg (65 mg iron) unknown) tablet,delayed release (DR/EC) (unknown) (no (unknown) (unknown) fluticasone (units (un known) date) propionate 16 GM unknown) spray,suspension (unknown) (no (unknown) (unknown) furosemide [Lasix] (units (unknown) date) 40 mg tablet unknown) (unknown) (no (unknown) (unknown) glipizide (units (unkn own) date) [Glucotrol XL] 2.5 unknown) mg tablet extended release 24 hr (unknown) (no (unknown) (unknown) levalbuterol HCl (units (unknown) date) 1.25 mg/3 mL unknown) solution for nebulization (unknown) (no (unknown) (unknown) levalbuterol (units (u nknown) date) tartrate [Xopenex unknown) HFA] 45 mcg/actuation HFA aerosol inhaler (unknown) (no (unknown) (unknown) meclizine 25 mg (units (unknown) date) tablet unknown) (unknown) (no (unknown) (unknown) metoprolol tartrate (unit s (unknown) date) 100 mg tablet unknown) (unknown) (no (unknown) (unknown) multivitamin (units (u nknown) date) [Multiple Vitamins] unknown) 1 EACH tablet (unknown) (no (unknown) (unknown) oxycodone 5 mg (units (unknown) date) Tablet unknown) (unknown) (no (unknown) (unknown) trazodone 100 mg (units (unknown) date) tablet unknown) (unknown) (no (unknown) (unknown) 11/19/21 (units (unkno wn) date) unknown) (unknown) (no (unknown) (unknown) Bronchiectasis (units (unknown) date) type: with acute unknown) exacerbation Qualified Code(s): J47.1 - (unknown) (no (unknown) (unknown) COPD exacerbation (units (unknown) date) unknown) (unknown) (no (unknown) (unknown) Medication (units (unk nown) date) Instructions unknown) Recorded (unknown) (no (unknown) (unknown) Medication (units (unk nown) date) Instructions unknown) Recorded Confirmed (unknown) (no (unknown) (unknown) acute ischemic (units (unknown) date) changes. unknown) (unknown) (no (unknown) (unknown) (Athenol) (units (unkn own) date) unknown) (unknown) (no (unknown) (unknown) (Tessalon Perles) (units (unknown) date) unknown) (unknown) (no (unknown) (unknown) (Xopenex HFA) (units ( unknown) date) unknown) (unknown) (no (unknown) (unknown) *If you do not have (unit s (unknown) date) a primary care unknown) provider please contact [phone] to (unknown) (no (unknown) (unknown) *Please follow up (units (unknown) date) with your primary unknown) care provider in 2-3 days, call for an (unknown) (no (unknown) (unknown) *Return to (units (unk nown) date) Emergency Department unknown) if you should have any new, worsening or (unknown) (no (unknown) (unknown) *What to do: (units (u nknown) date) unknown) (unknown) (no (unknown) (unknown) *You have been (units (unknown) date) diagnosed with [ ] unknown) (unknown) (no (unknown) (unknown) [id number] (units (unkn own) date) unknown) (unknown) (no (unknown) (unknown) 11/19/21 10:56 (units (unknown) date) unknown) (unknown) (no (unknown) (unknown) 11/19/21 10:57 (units (unknown) date) unknown) (unknown) (no (unknown) (unknown) 11/19/21 11:30 (units (unknown) date) unknown) (unknown) (no (unknown) (unknown) 11/19/21 12:36 (units (unknown) date) unknown) (unknown) (no (unknown) (unknown) 0RF (units (unkno wn) date) unknown) (unknown) (no (unknown) (unknown) 10:50 11/19/21 (units (unknown) date) unknown) (unknown) (no (unknown) (unknown) 11:20 11/19/21 (units (unknown) date) unknown) (unknown) (no (unknown) (unknown) 11:22 (units (unkno wn) date) unknown) (unknown) (no (unknown) (unknown) 11:30 11/19/21 (units (unknown) date) unknown) (unknown) (no (unknown) (unknown) 12:42 (units (unkno wn) date) unknown) (unknown) (no (unknown) (unknown) 76-year-old male (units (unknown) date) former smoker with unknown) history of COPD and hypertension, AFib, (unknown) (no (unknown) (unknown) ? (units (unkno wn) date) unknown) (unknown) (no (unknown) (unknown) ALT (<50) IU/L (units (unknown) date) unknown) (unknown) (no (unknown) (unknown) ALT 26 (<50) (units (unknown) date) IU/L unknown) (unknown) (no (unknown) (unknown) ANTIBIOTICS)] (units ( unknown) date) unknown) (unknown) (no (unknown) (unknown) AST (17-59) (units (unknown) date) IU/L unknown) (unknown) (no (unknown) (unknown) AST 31 (17-59) (units (unknown) date) IU/L unknown) (unknown) (no (unknown) (unknown) Achalasia (units (unkn own) date) unknown) (unknown) (no (unknown) (unknown) Activity (units (unkno wn) date) Restrictions/Additio unknown) nal Instructions: (unknown) (no (unknown) (unknown) Age/Sex: 76 / M (units (unknown) date) unknown) (unknown) (no (unknown) (unknown) Albumin (units (unkno wn) date) (3.5-5.0) g/dL unknown) (unknown) (no (unknown) (unknown) Albumin 4.6 (units (unknown) date) (3.5-5.0) g/dL unknown) (unknown) (no (unknown) (unknown) Albumin/Globulin (units (unknown) date) Ratio (1.0-2.8) unknown) (unknown) (no (unknown) (unknown) Albumin/Globulin (units (unknown) date) Ratio 1.5 unknown) (1.0-2.8) (unknown) (no (unknown) (unknown) Albuterol (units (unkn own) date) (Albuterol 2.5 Mg/3 unknown) Ml Neb (Adult)) 2.5 mg INH Q20M BLOSSOM (unknown) (no (unknown) (unknown) Albuterol/Ipratropi (unit s (unknown) date) um unknown) (Albuterol/Ipratropi um 3 Ml Ampul) 3 ml INH Q1H PRN (unknown) (no (unknown) (unknown) Alkaline (units (unkno wn) date) Phosphatase unknown) (38-126) U/L (unknown) (no (unknown) (unknown) Alkaline (units (unkno wn) date) Phosphatase 61 unknown) (38-126) U/L (unknown) (no (unknown) (unknown) Allergy/AdvReac (units (unknown) date) Type Severity unknown) Reaction Status Date / Time (unknown) (no (unknown) (unknown) Amoxicillin/Clavula (unit s (unknown) date) marah Potassium unknown) (Amoxicillin/Clav 875/125 Mg) 1 tab PO NOW (unknown) (no (unknown) (unknown) Anginal pain (units (u nknown) date) unknown) (unknown) (no (unknown) (unknown) Antibiotics) (units (u nknown) date) unknown) (unknown) (no (unknown) (unknown) Approved by: (units (u nknown) date) Andre Spear unknownRui Horton on 11/19/2021 at 11:56 ? (unknown) (no (unknown) (unknown) Asthma (units (unkno wn) date) unknown) (unknown) (no (unknown) (unknown) Atrial fibrillation (unit s (unknown) date) unknown) (unknown) (no (unknown) (unknown) BUN (9-20) (units ( unknown) date) mg/dL unknown) (unknown) (no (unknown) (unknown) BUN 13 (9-20) (units (unknown) date) mg/dL unknown) (unknown) (no (unknown) (unknown) BUN/Creatinine (units (unknown) date) Ratio (6-22) unknown) (unknown) (no (unknown) (unknown) BUN/Creatinine (units (unknown) date) Ratio 16.7 unknown) (6-22) (unknown) (no (unknown) (unknown) Baso # (Auto) (units ( unknown) date) (0-100) /uL unknown) (unknown) (no (unknown) (unknown) Baso # (Auto) 100 (unit s (unknown) date) (0-100) /uL unknown) (unknown) (no (unknown) (unknown) Baso % (Auto) (units ( unknown) date) (0-2) % unknown) (unknown) (no (unknown) (unknown) Baso % (Auto) 1.1 (unit s (unknown) date) (0-2) % unknown) (unknown) (no (unknown) (unknown) Blood Pressure (units (unknown) date) unknown) (unknown) (no (unknown) (unknown) Blood Pressure (units (unknown) date) 185/89 H 11/19/21 unknown) 10:50 (unknown) (no (unknown) (unknown) Blood Pressure (units (unknown) date) 185/89 H 158/88 H unknown) (unknown) (no (unknown) (unknown) Bones and chest (units (unknown) date) wall:? No suspicious unknown) bony abnormalities.? Soft tissues appear (unknown) (no (unknown) (unknown) Bronchiectasis (units (unknown) date) unknown) (unknown) (no (unknown) (unknown) Bronchiectasis with (unit s (unknown) date) (acute) exacerbation unknown) (unknown) (no (unknown) (unknown) CABG, and (units (unkn own) date) unknown) (unknown) (no (unknown) (unknown) CABG, not on (units (u nknown) date) anticoagulants who unknown) presents at the request of his primary care (unknown) (no (unknown) (unknown) [facility], [facility], XR unknown) CHEST 1V, 10/07/2021, 21:56. (unknown) (no (unknown) (unknown) COPD (chronic (units ( unknown) date) obstructive unknown) pulmonary disease) (unknown) (no (unknown) (unknown) COVID19 -Nasal (units (unknown) date) RAPID/Pre-Proc Stat unknown) (unknown) (no (unknown) (unknown) Calcium (units (unkno wn) date) (8.4-10.2) mg/dL unknown) (unknown) (no (unknown) (unknown) Calcium 8.5 (units (unknown) date) (8.4-10.2) mg/dL unknown) (unknown) (no (unknown) (unknown) Carbon Dioxide (units (unknown) date) (22-32) mmol/L unknown) (unknown) (no (unknown) (unknown) Carbon Dioxide (units (unknown) date) 25 (22-32) mmol/L unknown) (unknown) (no (unknown) (unknown) Cardio: denies (units (unknown) date) chest pain, unknown) palpitations, edema (unknown) (no (unknown) (unknown) Cervical spinal (units (unknown) date) stenosis unknown) (unknown) (no (unknown) (unknown) Chest x-ray: (units (u ) date) unknown) (unknown) (no (unknown) (unknown) Chief Complaint: (units (unknown) date) Shortness of unknown) Breath/Dyspnea (unknown) (no (unknown) (unknown) Chloride (units () date) (98-107) mmol/L unknown) (unknown) (no (unknown) (unknown) Chloride 103 (units (unknown) date) (98-107) mmol/L unknown) (unknown) (no (unknown) (unknown) Chronic obstructive (unit s (unknown) date) pulmonary disease unknown) (10/22/16) (unknown) (no (unknown) (unknown) Clinical (units () date) Impression: unknown) (unknown) (no (unknown) (unknown) Complete Blood (units (unknown) date) Count AUTO DIFF Stat unknown) (unknown) (no (unknown) (unknown) Comprehensive (units ( unknown) date) Metabolic Panel Stat unknown) (unknown) (no (unknown) (unknown) Consult to (units () date) Respiratory Therapy unknown) Evaluate + Treat (unknown) (no (unknown) (unknown) Coronary artery (units (unknown) date) disease unknown) (unknown) (no (unknown) (unknown) Course (units (o wn) date) unknown) (unknown) (no (unknown) (unknown) Creatinine (units () date) (0.66-1.25) mg/dL unknown) (unknown) (no (unknown) (unknown) Creatinine 0.78 (units (unknown) date) (0.66-1.25) mg/dL unknown) (unknown) (no (unknown) (unknown) : 1945 (units (unknown) date) Acct:[id number] unknown) (unknown) (no (unknown) (unknown) Kimmy Gomez MD (units (unknown) date) [Primary Care unknown) Provider] - (unknown) (no (unknown) (unknown) Departure (units (unkn own) date) unknown) (unknown) (no (unknown) (unknown) Dictated by: (units (u nknown) date) Andre Spear unknownRui Horton on 11/19/2021 at 11:55 ? ? (unknown) (no (unknown) (unknown) Discharge Plan (units (unknown) date) unknown) (unknown) (no (unknown) (unknown) Discontinued (units (u nknown) date) Medications unknown) (unknown) (no (unknown) (unknown) ECG Data (units (unkno wn) date) unknown) (unknown) (no (unknown) (unknown) EKG reviewed by (units (unknown) date) myself and unknown) Justine reveals normal sinus rhythm at [84] bpm (unknown) (no (unknown) (unknown) EKG-12 Lead Stat (units (unknown) date) unknown) (unknown) (no (unknown) (unknown) ER Physician: (units ( unknown) date) Frida Pruitt unknown) (unknown) (no (unknown) (unknown) Eos # (Auto) (units (u nknown) date) (0-450) /uL unknown) (unknown) (no (unknown) (unknown) Eos # (Auto) 400 (units (unknown) date) (0-450) /uL unknown) (unknown) (no (unknown) (unknown) Eos % (Auto) (units (u nknown) date) (2-4) % unknown) (unknown) (no (unknown) (unknown) Eos % (Auto) 7.6 (units (unknown) date) H (2-4) % unknown) (unknown) (no (unknown) (unknown) Estimated GFR > (units (unknown) date) 60 (>60) mL/min unknown) (unknown) (no (unknown) (unknown) Estimated GFR (units ( unknown) date) (>60) mL/min unknown) (unknown) (no (unknown) (unknown) Exam (units (unkno wn) date) unknown) (unknown) (no (unknown) (unknown) Eyes: denies visual (unit s (unknown) date) changes, eye pain unknown) (unknown) (no (unknown) (unknown) FINDINGS:? (units (unk nown) date) unknown) (unknown) (no (unknown) (unknown) Family History (units (unknown) date) (Reviewed 11/19/21 @ unknown) 13:21 by Frida Pruitt [facility]) (unknown) (no (unknown) (unknown) GI: denies (units (unk nown) date) abdominal pain, unknown) nausea, vomiting, or diarrhea (unknown) (no (unknown) (unknown) : denies dysuria, (unit s (unknown) date) hematuria, urinary unknown) retention, frequency or incontinence (unknown) (no (unknown) (unknown) General (units (unkno wn) date) unknown) (unknown) (no (unknown) (unknown) General: denies (units (unknown) date) fever, chills, unknown) malaise, sweats, fatigue (unknown) (no (unknown) (unknown) GenericComposite[Pl (unit s (unknown) date) t Count (150-400) unknown) X10^3/uL ] (unknown) (no (unknown) (unknown) GenericComposite[Pl (unit s (unknown) date) t Count 207 unknown) (150-400) X10^3/uL ] (unknown) (no (unknown) (unknown) GenericComposite[RB (unit s (unknown) date) C (4.5-5.9) unknown) X10^6/uL ] (unknown) (no (unknown) (unknown) GenericComposite[RB (unit s (unknown) date) C 4.60 (4.5-5.9) unknown) X10^6/uL ] (unknown) (no (unknown) (unknown) GenericComposite[WB (unit s (unknown) date) C (4.5-11.0) unknown) X10^3/uL ] (unknown) (no (unknown) (unknown) GenericComposite[WB (unit s (unknown) date) C 5.3 (4.5-11.0) unknown) X10^3/uL ] (unknown) (no (unknown) (unknown) Globulin (units (unkno wn) date) (1.7-4.1) g/dL unknown) (unknown) (no (unknown) (unknown) Globulin 3.1 (units (unknown) date) (1.7-4.1) g/dL unknown) (unknown) (no (unknown) (unknown) Glucose (80-110) (unit s (unknown) date) mg/dL unknown) (unknown) (no (unknown) (unknown) Glucose 201 H (units (unknown) date) (80-110) mg/dL unknown) (unknown) (no (unknown) (unknown) H/O arthroscopic (units (unknown) date) knee surgery unknown) (11/14/17) (unknown) (no (unknown) (unknown) HPI - SOB/Dyspnea (units (unknown) date) unknown) (unknown) (no (unknown) (unknown) HPI Narrative: (units (unknown) date) unknown) (unknown) (no (unknown) (unknown) Hct (41-53) % (units (unknown) date) unknown) (unknown) (no (unknown) (unknown) Hct 43.2 (units (unk nown) date) (41-53) % unknown) (unknown) (no (unknown) (unknown) Head/Neck: denies (units (unknown) date) headache, neck pain, unknown) dizziness (unknown) (no (unknown) (unknown) Hgb (13.5-17.5) (units (unknown) date) g/dL unknown) (unknown) (no (unknown) (unknown) Hgb 14.4 (units (unk nown) date) (13.5-17.5) g/dL unknown) (unknown) (no (unknown) (unknown) History of Present (units (unknown) date) Illness unknown) (unknown) (no (unknown) (unknown) History of aortic (units (unknown) date) dissection unknown) () (unknown) (no (unknown) (unknown) History of (units (unk nown) date) arthroplasty of unknown) right knee (unknown) (no (unknown) (unknown) 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 (unknown) (no (unknown) (unknown) History of cardiac (units (unknown) date) cath () unknown) (unknown) (no (unknown) (unknown) History of (units (unk nown) date) esophageal surgery unknown) (unknown) (no (unknown) (unknown) History of incision (unit s (unknown) date) and drainage () unknown) (unknown) (no (unknown) (unknown) History of prior (units (unknown) date) ablation treatment unknown) () (unknown) (no (unknown) (unknown) History of surgery (units (unknown) date) unknown) (unknown) (no (unknown) (unknown) Hx of (units (unkno wn) date) cholecystectomy unknown) (unknown) (no (unknown) (unknown) Hx of hernia repair (unit s (unknown) date) unknown) (unknown) (no (unknown) (unknown) Hx of sinus surgery (unit s (unknown) date) unknown) (unknown) (no (unknown) (unknown) Hydromorphone HCl (units (unknown) date) (Hydromorphone 0.5 unknown) Mg Inj) 0.5 mg IV NOW ONE (unknown) (no (unknown) (unknown) Hypertension (units (u nknown) date) unknown) (unknown) (no (unknown) (unknown) IMPRESSION:? No (units (unknown) date) acute unknown) cardiopulmonary abnormality. (unknown) (no (unknown) (unknown) INDICATIONS:? (units ( unknown) date) shortness of breath unknown) (unknown) (no (unknown) (unknown) INHIBITOR] (units (unk nown) date) unknown) (unknown) (no (unknown) (unknown) Imaging Data (units (u nknown) date) unknown) (unknown) (no (unknown) (unknown) Inhibitor MUSCLES (unit s (unknown) date) unknown) (unknown) (no (unknown) (unknown) Initial Vital Signs (unit s (unknown) date) unknown) (unknown) (no (unknown) (unknown) Initial Vital (units ( unknown) date) Signs: unknown) (unknown) (no (unknown) (unknown) Interpretation: (units (unknown) date) unknown) (unknown) (no (unknown) (unknown) Ischemic (units (unkno wn) date) cardiomyopathy unknown) (unknown) (no (unknown) (unknown) Lab Data (units (unkno wn) date) unknown) (unknown) (no (unknown) (unknown) Labs: (units (unkno wn) date) unknown) (unknown) (no (unknown) (unknown) Lactate (units (unkno wn) date) (0.7-2.1) mmol/L unknown) (unknown) (no (unknown) (unknown) Lactate 3.7 H (units (unknown) date) (0.7-2.1) mmol/L unknown) (unknown) (no (unknown) (unknown) Lactate (Lactic (units (unknown) date) Acid) Stat unknown) (unknown) (no (unknown) (unknown) Limitations: no (units (unknown) date) limitations unknown) (unknown) (no (unknown) (unknown) Lungs and pleura:? (units (unknown) date) Coarsened unknown) interstitial markings.? No consolidation, pleural (unknown) (no (unknown) (unknown) Lymph # (Auto) (units (unknown) date) (5264-7817) /uL unknown) (unknown) (no (unknown) (unknown) Lymph # (Auto) (units (unknown) date) 1100 (9126-8359) unknown) /uL (unknown) (no (unknown) (unknown) Lymph % (Auto) (units (unknown) date) (25-40) % unknown) (unknown) (no (unknown) (unknown) Lymph % (Auto) (units (unknown) date) 19.9 L (25-40) % unknown) (unknown) (no (unknown) (unknown) MCH (26-34) PG (units (unknown) date) unknown) (unknown) (no (unknown) (unknown) MCH 31.4 (units (unk nown) date) (26-34) PG unknown) (unknown) (no (unknown) (unknown) MCHC (30-36) % (units (unknown) date) unknown) (unknown) (no (unknown) (unknown) MCHC 33.4 (units (un known) date) (30-36) % unknown) (unknown) (no (unknown) (unknown) MCV (80-100) fL (unit s (unknown) date) unknown) (unknown) (no (unknown) (unknown) MCV 93.9 (units (unk nown) date) (80-100) fL unknown) (unknown) (no (unknown) (unknown) MDM - SOB/Dyspnea (units (unknown) date) unknown) (unknown) (no (unknown) (unknown) MSK: denies joint (units (unknown) date) pain, muscle unknown) weakness, endorses low back pain at baseline (unknown) (no (unknown) (unknown) Magnesium (units (unkn own) date) (1.6-2.3) mg/dL unknown) (unknown) (no (unknown) (unknown) Magnesium 1.8 (units (unknown) date) (1.6-2.3) mg/dL unknown) (unknown) (no (unknown) (unknown) Magnesium Stat (units (unknown) date) unknown) (unknown) (no (unknown) (unknown) Measure peak (units (u nknown) date) expiratory flow ONCE unknown) (unknown) (no (unknown) (unknown) Mediastinum:? (units ( unknown) date) Mediastinal contours unknown) are normal.? Heart size is normal.? (unknown) (no (unknown) (unknown) Medical History (units (unknown) date) (Reviewed 11/19/21 @ unknown) 13:21 by Frida Pruitt [facility]) (unknown) (no (unknown) (unknown) Methylprednisolone (units (unknown) date) (Methylprednisolone unknown) 125 Mg/2 Ml Vial) 125 mg IV NOW ONE (unknown) (no (unknown) (unknown) Mode of arrival: (units (unknown) date) Wheelchair unknown) (unknown) (no (unknown) (unknown) [place] # (Auto) (units ( unknown) date) (0-900) /uL unknown) (unknown) (no (unknown) (unknown) [place] # (Auto) 400 (unit s (unknown) date) (0-900) /uL unknown) (unknown) (no (unknown) (unknown) [place] % (Auto) (units ( unknown) date) (3-14) % unknown) (unknown) (no (unknown) (unknown) [place] % (Auto) 7.9 (unit s (unknown) date) (3-14) % unknown) (unknown) (no (unknown) (unknown) Mother (units (unknown) date) Stroke unknown) (unknown) (no (unknown) (unknown) Narcotic dependence (unit s (unknown) date) unknown) (unknown) (no (unknown) (unknown) Narrative: (units (unk nown) date) unknown) (unknown) (no (unknown) (unknown) Neck pain, chronic (units (unknown) date) unknown) (unknown) (no (unknown) (unknown) Neuro: denies (units ( unknown) date) numbness, tingling unknown) (unknown) (no (unknown) (unknown) Neut # (Auto) (units ( unknown) date) (9277-2361) /uL unknown) (unknown) (no (unknown) (unknown) Neut # (Auto) (units ( unknown) date) 3400 (1268-8197) unknown) /uL (unknown) (no (unknown) (unknown) Neut % (Auto) (units ( unknown) date) (50-75) % unknown) (unknown) (no (unknown) (unknown) Neut % (Auto) (units ( unknown) date) 63.5 (50-75) % unknown) (unknown) (no (unknown) (unknown) No Action (units (unkn own) date) unknown) (unknown) (no (unknown) (unknown) ONE (units (unkno wn) date) unknown) (unknown) (no (unknown) (unknown) Ordered: (units (unkno wn) date) unknown) (unknown) (no (unknown) (unknown) Orders (units (unkno wn) date) unknown) (unknown) (no (unknown) (unknown) Oxycodone/Acetaminop (unit s (unknown) date) hen unknown) (Oxycodone/Acetamino phen 5/325 Tablet) 1 tab PO NOW ONE (unknown) (no (unknown) (unknown) PROCEDURE:? XR (units (unknown) date) CHEST 2V unknown) (unknown) (no (unknown) (unknown) Patient (units (unkno wn) date) Disposition: Home unknown) (unknown) (no (unknown) (unknown) Patient History (units (unknown) date) unknown) (unknown) (no (unknown) (unknown) Patient: (units (unkno wn) date) Dominic Viveros unknown) MR#: M (unknown) (no (unknown) (unknown) Potassium (units (unkn own) date) (3.4-5.1) mmol/L unknown) (unknown) (no (unknown) (unknown) Potassium 4.1 (units (unknown) date) (3.4-5.1) mmol/L unknown) (unknown) (no (unknown) (unknown) Prescriptions: (units (unknown) date) unknown) (unknown) (no (unknown) (unknown) Pulse Oximetry 95 (units (unknown) date) 11/19/21 10:50 unknown) (unknown) (no (unknown) (unknown) Pulse Oximetry 95 (units (unknown) date) 92 unknown) (unknown) (no (unknown) (unknown) Pulse Oximetry 95 (units (unknown) date) 92 94 unknown) (unknown) (no (unknown) (unknown) Pulse Rate 83 (units (unknown) date) 11/19/21 10:50 unknown) (unknown) (no (unknown) (unknown) Pulse Rate 81 91 H (units (unknown) date) unknown) (unknown) (no (unknown) (unknown) Pulse Rate 83 96 H (units (unknown) date) 92 H unknown) (unknown) (no (unknown) (unknown) Qualifiers: (units (un known) date) unknown) (unknown) (no (unknown) (unknown) RDW (11.6-14.8) (units (unknown) date) % unknown) (unknown) (no (unknown) (unknown) RDW 13.5 (units (unk nown) date) (11.6-14.8) % unknown) (unknown) (no (unknown) (unknown) RT Consult Eval and (unit s (unknown) date) Treat Now unknown) (unknown) (no (unknown) (unknown) Referrals: (units (unk nown) date) unknown) (unknown) (no (unknown) (unknown) Related Data (units (u nknown) date) unknown) (unknown) (no (unknown) (unknown) Respiratory Rate (units (unknown) date) 22 11/19/21 10:50 unknown) (unknown) (no (unknown) (unknown) Respiratory Rate 21 (unit s (unknown) date) unknown) (unknown) (no (unknown) (unknown) Respiratory Rate 22 (unit s (unknown) date) unknown) (unknown) (no (unknown) (unknown) Respiratory: (units (u nknown) date) Endorses dyspnea, unknown) +cough, increased sinus drainage, productive (unknown) (no (unknown) (unknown) Result diagrams: (units (unknown) date) unknown) (unknown) (no (unknown) (unknown) Review of Systems (units (unknown) date) unknown) (unknown) (no (unknown) (unknown) S/P CABG x 3 (units (u nknown) date) () unknown) (unknown) (no (unknown) (unknown) S/P cervical spinal (unit s (unknown) date) fusion unknown) (unknown) (no (unknown) (unknown) S/P lumbar fusion (units (unknown) date) unknown) (unknown) (no (unknown) (unknown) SARS-CoV-2 (PCR) (units (unknown) date) (Negative) unknown) (unknown) (no (unknown) (unknown) SARS-CoV-2 (PCR) (units (unknown) date) Negative unknown) (Negative) (unknown) (no (unknown) (unknown) Signed By: (units (unk nown) date) unknown) (unknown) (no (unknown) (unknown) Skin: denies rash, (units (unknown) date) itching, skin unknown) lesions or other (unknown) (no (unknown) (unknown) Smoking Status: (units (unknown) date) Former smoker unknown) (unknown) (no (unknown) (unknown) Smoking Status: (units (unknown) date) Former smoker unknown) (unknown) (no (unknown) (unknown) Social History (units (unknown) date) (Reviewed 11/19/21 @ unknown) 13:21 by Frida Pruitt [employer]) (unknown) (no (unknown) (unknown) Sodium (137-145) (unit s (unknown) date) mmol/L unknown) (unknown) (no (unknown) (unknown) Sodium 140 (units ( unknown) date) (137-145) mmol/L unknown) (unknown) (no (unknown) (unknown) Sodium Chloride (units (unknown) date) (Normal Saline 0.9%) unknown) 500 mls @ 1,000 mls/hr IV BOLUS ONE (unknown) (no (unknown) (unknown) Source: patient and (unit s (unknown) date) family unknown) (unknown) (no (unknown) (unknown) Stated Complaint: (units (unknown) date) STATES unknown) PNEUMONIA-PHYSICAIN REFERRED (unknown) (no (unknown) (unknown) Eyijsad-LYG-MqW (units (unknown) date) Reductase AdvReac unknown) Mild WEAK Verified 04/16/21 12:13 (unknown) (no (unknown) (unknown) Substance Use Type: (unit s (unknown) date) does not use unknown) (unknown) (no (unknown) (unknown) Sulfa (Sulfonamide (units (unknown) date) Allergy Mild RASH unknown) Verified 04/16/21 12:13 (unknown) (no (unknown) (unknown) Surgical History (units (unknown) date) (Reviewed 11/19/21 @ unknown) 13:21 by Frida Pruitt [facility]) (unknown) (no (unknown) (unknown) Surgical changes (units (unknown) date) and devices:? unknown) Redemonstrated sternotomy wires, evidence of (unknown) (no (unknown) (unknown) TECHNIQUE:? 2 views (unit s (unknown) date) of the chest were unknown) acquired.? (unknown) (no (unknown) (unknown) Temperature (units (un known) date) unknown) (unknown) (no (unknown) (unknown) Temperature 97.8 F (unit s (unknown) date) 11/19/21 10:50 unknown) (unknown) (no (unknown) (unknown) Temperature 97.8 F (units (unknown) date) unknown) (unknown) (no (unknown) (unknown) Time Seen by (units (u nknown) date) Provider: 11/19/21 unknown) 12:02 (unknown) (no (unknown) (unknown) Total Bilirubin (units (unknown) date) (0.2-1.3) mg/dL unknown) (unknown) (no (unknown) (unknown) Total Bilirubin (units (unknown) date) 0.5 (0.2-1.3) unknown) mg/dL (unknown) (no (unknown) (unknown) Total Protein (units ( unknown) date) (6.3-8.2) g/dL unknown) (unknown) (no (unknown) (unknown) Total Protein (units ( unknown) date) 7.7 (6.3-8.2) g/dL unknown) (unknown) (no (unknown) (unknown) Ventricular (units (un known) date) bigeminy unknown) (unknown) (no (unknown) (unknown) Vital Signs (units (un known) date) unknown) (unknown) (no (unknown) (unknown) Vital signs: (units (u nknown) date) unknown) (unknown) (no (unknown) (unknown) XR chest 2V Stat (units (unknown) date) unknown) (unknown) (no (unknown) (unknown) [Embedded Image Not (unit s (unknown) date) Available] unknown) (unknown) (no (unknown) (unknown) [[id number] (units (unknown) date) REDUCTASE unknown) (unknown) (no (unknown) (unknown) [SULFA (SULFONAMIDE (unit s (unknown) date) unknown) (unknown) (no (unknown) (unknown) acetaminophen 300 (units (unknown) date) mg-codeine 30 mg 1 unknown) tab PO Q6HR PRN 10/08/21 10/08/21 (unknown) (no (unknown) (unknown) acetaminophen 325 (units (unknown) date) mg tablet 650 mg PO unknown) Q6H PRN #60 tab 11/06/20 (unknown) (no (unknown) (unknown) alcohol intake (units (unknown) date) frequency: unknown) holidays/special occasions only (unknown) (no (unknown) (unknown) alcohol intake: (units (unknown) date) current unknown) (unknown) (no (unknown) (unknown) appointment. Let (units (unknown) date) them know you were unknown) seen in the Emergency Department and that we (unknown) (no (unknown) (unknown) asked that you be (units (unknown) date) seen for follow-up. unknown) We will electronically transmit a record (unknown) (no (unknown) (unknown) benzonatate 100 mg (units (unknown) date) capsule 100 mg PO unknown) TID PRN #14 cap 03/05/21 (unknown) (no (unknown) (unknown) breath, cough and (units (unknown) date) congestion due to unknown) the seasoal allergies. He has had no fever (unknown) (no (unknown) (unknown) buprenorphine (units ( unknown) date) [BUPRENORPHINE] unknown) AdvReac Mild NAUSEA, Verified 04/16/21 12:13 (unknown) (no (unknown) (unknown) cefdinir 300 mg (units (unknown) date) capsule 300 mg PO unknown) BID #20 cap 10/09/21 (unknown) (no (unknown) (unknown) celecoxib (units (unkn own) date) [CELECOXIB] Allergy unknown) Mild SWELLING Verified 04/16/21 12:13 (unknown) (no (unknown) (unknown) cervical spine (units (unknown) date) hardware.? unknown) (unknown) (no (unknown) (unknown) cetirizine 10 mg (units (unknown) date) capsule (Zyrtec) 10 unknown) mg PO DAILY 05/22/19 10/08/21 (unknown) (no (unknown) (unknown) concerning (units (unk nown) date) symptoms, such as unknown) [fever greater than 101F, chills, worsening pain, (unknown) (no (unknown) (unknown) cough, denies any (units (unknown) date) shortness of breath unknown) with exertion or orthopnea (unknown) (no (unknown) (unknown) diazepam [From (units (unknown) date) Valium] AdvReac unknown) Confusion Verified 04/16/21 12:13 (unknown) (no (unknown) (unknown) due to coughing (units (unknown) date) ongoing low back unknown) pain which is also worse with coughing. He is (unknown) (no (unknown) (unknown) effusions (units (unkn own) date) unknown) (unknown) (no (unknown) (unknown) establish care with [facility] ([facility]) [facility]. (unknown) (no (unknown) (unknown) ferrous sulfate 325 (unit s (unknown) date) mg (65 mg 325 mg PO unknown) DAILY 10/19/19 10/08/21 (unknown) (no (unknown) (unknown) fluticasone (units (un known) date) propionate 50 1 unknown) spray INTRANASAL DAILY PRN #0 11/02/17 10/08/21 (unknown) (no (unknown) (unknown) furosemide 40 mg (units (unknown) date) tablet (Lasix) 40 mg unknown) PO DAILY 10/08/21 10/08/21 (unknown) (no (unknown) (unknown) glipizide 2.5 mg (units (unknown) date) tablet, extended 2.5 unknown) mg PO DAILY 10/08/21 10/08/21 (unknown) (no (unknown) (unknown) household members: (units (unknown) date) spouse unknown) (unknown) (no (unknown) (unknown) hyoscyamine (units (un known) date) [HYOSCYAMINE] unknown) AdvReac Mild LEG Verified 04/16/21 12:13 (unknown) (no (unknown) (unknown) iron) (units (unkno wn) date) tablet,delayed unknown) release (unknown) (no (unknown) (unknown) latex [LATEX] (units ( unknown) date) Allergy Mild RASH unknown) Verified 04/16/21 12:13 (unknown) (no (unknown) (unknown) levalbuterol HCl (units (unknown) date) 1.25 mg/3 mL 3 ml unknown) INHALATION Q6H PRN 10/16/18 10/08/21 (unknown) (no (unknown) (unknown) levalbuterol (units (u nknown) date) tartrate 45 1 puff unknown) INHALATION Q4-6H PRN #15 06/22/18 (unknown) (no (unknown) (unknown) mcg/actuation (units ( unknown) date) aerosol inhaler gram unknown) (unknown) (no (unknown) (unknown) mcg/actuation nasal (unit s (unknown) date) unknown) (unknown) (no (unknown) (unknown) meclizine 25 mg (units (unknown) date) tablet 25 mg PO QID unknown) PRN #30 tab 10/09/21 (unknown) (no (unknown) (unknown) medication change (units (unknown) date) or weight gain.? He unknown) denies nausea, vomiting or diarrhea. (unknown) (no (unknown) (unknown) metoprolol tartrate (unit s (unknown) date) 100 mg tablet 100 mg unknown) PO BID 10/16/18 10/08/21 (unknown) (no (unknown) (unknown) multivitamin (units (u nknown) date) (Multiple Vitamins) unknown) 1 tab PO DAILY #0 12/20/16 10/08/21 (unknown) (no (unknown) (unknown) not dizzy nor weak (units (unknown) date) or lightheaded.? He unknown) denies any excertional component, (unknown) (no (unknown) (unknown) of today's note if (units (unknown) date) your PCP is in our unknown) system (unknown) (no (unknown) (unknown) or chills but (units ( unknown) date) states that he is unknown) more tired than usual, has a frontal headache (unknown) (no (unknown) (unknown) or pneumothorax.? (units (unknown) date) unknown) (unknown) (no (unknown) (unknown) oxycodone 5 mg (units (unknown) date) tablet 10 mg PO unknown) Q4-5H PRN #60 tab 11/06/20 (unknown) (no (unknown) (unknown) persistent vomiting (unit s (unknown) date) or other bothersome unknown) symptoms] (unknown) (no (unknown) (unknown) provider for 3 days (unit s (unknown) date) of increased upper unknown) respiratory wheezing, shortness of (unknown) (no (unknown) (unknown) release 24 hr (units ( unknown) date) (Glucotrol XL) unknown) (unknown) (no (unknown) (unknown) solution for (units (u nknown) date) nebulization unknown) (unknown) (no (unknown) (unknown) spray,suspension (units (unknown) date) unknown) (unknown) (no (unknown) (unknown) substance use type: (unit s (unknown) date) does not use unknown) (unknown) (no (unknown) (unknown) tablet (units (unkno wn) date) unknown) (unknown) (no (unknown) (unknown) trazodone 100 mg (units (unknown) date) tablet 400 tab PO unknown) BEDTIME 12/09/17 10/08/21 (unknown) (no (unknown) (unknown) unremarkable.? (units (unknown) date) unknown) (unknown) (no (unknown) (unknown) varenicline (units (un known) date) [VARENICLINE] unknown) AdvReac Severe Paranoia Verified 04/16/21 12:13 (unknown) (no (unknown) (unknown) with rightward axis (units (unknown) date) and intervals. No unknown) STEMI, ST segment changes, arrhythmia, or Result panel 7 (unknown) (no (unknown) (unknown) (no value) (units (unk nown) date) unknown) (unknown) (no (unknown) (unknown) Radiologist's (units ( unknown) date) Impression: unknown) (unknown) (no (unknown) (unknown) *Please continue to (unit s (unknown) date) take your regular unknown) medications as directed. (unknown) (no (unknown) (unknown) Date of Service: (units (unknown) date) 11/19/21 unknown) (unknown) (no (unknown) (unknown) (no value) (units (unk nown) date) unknown) (unknown) (no (unknown) (unknown) 11/19/21 11:30 (units (unknown) date) unknown) (unknown) (no (unknown) (unknown) 1 puff INHALATION (units (unknown) date) Q4-6H PRN (Reason: unknown) shortness of breath or wheezing) Qty: 15 (unknown) (no (unknown) (unknown) 1 spray Intranasal (units (unknown) date) DAILY PRN (Reason: unknown) Allergy Symptoms) Qty: 0 0RF (unknown) (no (unknown) (unknown) 1 tab PO DAILY Qty: (unit s (unknown) date) 0 0RF unknown) (unknown) (no (unknown) (unknown) 1 tab PO Q6HR PRN (units (unknown) date) (Reason: Back Pain) unknown) 0RF (unknown) (no (unknown) (unknown) 10 mg PO DAILY 0RF (units (unknown) date) unknown) (unknown) (no (unknown) (unknown) 10 mg PO Q4-5H PRN (units (unknown) date) (Reason: Pain, unknown) Severe (7-10)) Qty: 60 0RF (unknown) (no (unknown) (unknown) 100 mg PO BID 0RF (units (unknown) date) unknown) (unknown) (no (unknown) (unknown) 100 mg PO TID PRN (units (unknown) date) (Reason: cough) Qty: unknown) 14 0RF (unknown) (no (unknown) (unknown) 2.5 mg PO DAILY 0RF (unit s (unknown) date) unknown) (unknown) (no (unknown) (unknown) 25 mg PO QID PRN (units (unknown) date) (Reason: vertigo) unknown) Qty: 30 0RF (unknown) (no (unknown) (unknown) 3 ml Inhalation Q6H (unit s (unknown) date) PRN (Reason: unknown) Shortness Of Breath) 0RF (unknown) (no (unknown) (unknown) 300 mg PO BID Qty: (units (unknown) date) 20 0RF unknown) (unknown) (no (unknown) (unknown) 325 mg PO DAILY 0RF (unit s (unknown) date) unknown) (unknown) (no (unknown) (unknown) 40 mg PO DAILY 0RF (units (unknown) date) unknown) (unknown) (no (unknown) (unknown) 400 tab PO BEDTIME (units (unknown) date) 0RF unknown) (unknown) (no (unknown) (unknown) 650 mg PO Q6H PRN (units (unknown) date) (Reason: pain) Qty: unknown) 60 0RF (unknown) (no (unknown) (unknown) ANXIETY, (units (unkno wn) date) unknown) (unknown) (no (unknown) (unknown) Allergies (units (unkn own) date) unknown) (unknown) (no (unknown) (unknown) DIZZINESS (units (unkn own) date) unknown) (unknown) (no (unknown) (unknown) Documented by: (units (unknown) date) ATAYLOR unknown) (unknown) (no (unknown) (unknown) Documented by: (units (unknown) date) JFREELA unknown) (unknown) (no (unknown) (unknown) ED Orders (units (unkn own) date) unknown) (unknown) (no (unknown) (unknown) EXPOSURE (units (unkno wn) date) unknown) (unknown) (no (unknown) (unknown) Emergency Report (units (unknown) date) unknown) (unknown) (no (unknown) (unknown) Home Medications (units (unknown) date) unknown) (unknown) (no (unknown) (unknown) INHALE 1 VIAL PER (units (unknown) date) NEBULIZER EVERY 6 unknown) HOURS NEEDED (unknown) (no (unknown) (unknown) [facility] (units (unknown) date) [address] unknown) [place] [address] (unknown) (no (unknown) (unknown) JERKING, (units (unkno wn) date) unknown) (unknown) (no (unknown) (unknown) Lab Results (units (un known) date) unknown) (unknown) (no (unknown) (unknown) Label Comments: (units (unknown) date) unknown) (unknown) (no (unknown) (unknown) Last Admin: (units (un known) date) 11/19/21 12:42 unknown) Dose: 3 ml (unknown) (no (unknown) (unknown) Last Admin: (units (un known) date) 11/19/21 12:53 unknown) Dose: 1,000 mls/hr (unknown) (no (unknown) (unknown) Last Admin: (units (un known) date) 11/19/21 12:53 unknown) Dose: 125 mg (unknown) (no (unknown) (unknown) Last Admin: (units (un known) date) 11/19/21 12:54 unknown) Dose: 0.5 mg (unknown) (no (unknown) (unknown) Last Admin: (units (un known) date) 11/19/21 12:54 unknown) Dose: 1 tab (unknown) (no (unknown) (unknown) MINUTES (units (unkno wn) date) unknown) (unknown) (no (unknown) (unknown) NAUSEA W/I (units (unk nown) date) unknown) (unknown) (no (unknown) (unknown) PRN Reason: (units (un known) date) Shortness Of Breath unknown) (unknown) (no (unknown) (unknown) Previous Rx's (units ( unknown) date) unknown) (unknown) (no (unknown) (unknown) Spouse Milana called (unit s (unknown) date) + reported patient unknown) not taking it regularly. (unknown) (no (unknown) (unknown) Stop: 11/19/21 (units (unknown) date) 12:37 unknown) (unknown) (no (unknown) (unknown) Stop: 11/19/21 (units (unknown) date) 12:40 unknown) (unknown) (no (unknown) (unknown) Stop: 11/19/21 (units (unknown) date) 12:42 unknown) (unknown) (no (unknown) (unknown) Stop: 11/19/21 (units (unknown) date) 13:08 unknown) (unknown) (no (unknown) (unknown) Stop: 11/19/21 (units (unknown) date) 13:16 unknown) (unknown) (no (unknown) (unknown) Stop: 11/19/21 (units (unknown) date) 13:56 unknown) (unknown) (no (unknown) (unknown) Vital Signs - 8 hr (units (unknown) date) unknown) (unknown) (no (unknown) (unknown) W/EXTENDED (units (unk nown) date) unknown) (unknown) (no (unknown) (unknown) [ ] New medication (units (unknown) date) prescriptions sent unknown) to your pharmacy: [ ] (unknown) (no (unknown) (unknown) [ ] New medication (units (unknown) date) written as a paper unknown) prescription (unknown) (no (unknown) (unknown) [ ] No new (units (unk nown) date) medications given unknown) (unknown) (no (unknown) (unknown) patient states (units (unknown) date) weaning off. unknown) (unknown) (no (unknown) (unknown) take 1 tablet by (units (unknown) date) mouth once daily unknown) (unknown) (no (unknown) (unknown) take 1 tablet by (units (unknown) date) mouth twice a day unknown) (unknown) (no (unknown) (unknown) (no value) (units (unk nown) date) unknown) (unknown) (no (unknown) (unknown) 11/19/21 11/19/21 (units (unknown) date) 11/19/21 Range/Units unknown) (unknown) (no (unknown) (unknown) 11/19/21 11/19/21 (units (unknown) date) Range/Units unknown) (unknown) (no (unknown) (unknown) 10:56 11:30 11:30 (units (unknown) date) unknown) (unknown) (no (unknown) (unknown) 11:30 11:30 (units (un known) date) unknown) (unknown) (no (unknown) (unknown) Zyrtec 10 mg (units (u nknown) date) Capsule unknown) (unknown) (no (unknown) (unknown) acetaminophen (units ( unknown) date) [Athenol] 325 mg unknown) tablet (unknown) (no (unknown) (unknown) acetaminophen-codei (unit s (unknown) date) ne 300-30 mg tablet unknown) (unknown) (no (unknown) (unknown) benzonatate (units (un known) date) [Tessalon Perles] unknown) 100 mg capsule (unknown) (no (unknown) (unknown) cefdinir 300 mg (units (unknown) date) capsule unknown) (unknown) (no (unknown) (unknown) ferrous sulfate 325 (unit s (unknown) date) mg (65 mg iron) unknown) tablet,delayed release (DR/EC) (unknown) (no (unknown) (unknown) fluticasone (units (un known) date) propionate 16 GM unknown) spray,suspension (unknown) (no (unknown) (unknown) furosemide [Lasix] (units (unknown) date) 40 mg tablet unknown) (unknown) (no (unknown) (unknown) glipizide (units (unkn own) date) [Glucotrol XL] 2.5 unknown) mg tablet extended release 24 hr (unknown) (no (unknown) (unknown) levalbuterol HCl (units (unknown) date) 1.25 mg/3 mL unknown) solution for nebulization (unknown) (no (unknown) (unknown) levalbuterol (units (u nknown) date) tartrate [Xopenex unknown) HFA] 45 mcg/actuation HFA aerosol inhaler (unknown) (no (unknown) (unknown) meclizine 25 mg (units (unknown) date) tablet unknown) (unknown) (no (unknown) (unknown) metoprolol tartrate (unit s (unknown) date) 100 mg tablet unknown) (unknown) (no (unknown) (unknown) multivitamin (units (u nknown) date) [Multiple Vitamins] unknown) 1 EACH tablet (unknown) (no (unknown) (unknown) oxycodone 5 mg (units (unknown) date) Tablet unknown) (unknown) (no (unknown) (unknown) trazodone 100 mg (units (unknown) date) tablet unknown) (unknown) (no (unknown) (unknown) 11/19/21 (units (unkno wn) date) unknown) (unknown) (no (unknown) (unknown) Bronchiectasis (units (unknown) date) type: with acute unknown) exacerbation Qualified Code(s): J47.1 - (unknown) (no (unknown) (unknown) COPD exacerbation (units (unknown) date) unknown) (unknown) (no (unknown) (unknown) Medication (units (unk nown) date) Instructions unknown) Recorded (unknown) (no (unknown) (unknown) Medication (units (unk nown) date) Instructions unknown) Recorded Confirmed (unknown) (no (unknown) (unknown) acute ischemic (units (unknown) date) changes. unknown) (unknown) (no (unknown) (unknown) (Athenol) (units (unkn own) date) unknown) (unknown) (no (unknown) (unknown) (Tessalon Perles) (units (unknown) date) unknown) (unknown) (no (unknown) (unknown) (Xopenex HFA) (units ( unknown) date) unknown) (unknown) (no (unknown) (unknown) *If you do not have (unit s (unknown) date) a primary care unknown) provider please contact [phone] to (unknown) (no (unknown) (unknown) *Please follow up (units (unknown) date) with your primary unknown) care provider in 2-3 days, call for an (unknown) (no (unknown) (unknown) *Return to (units (unk nown) date) Emergency Department unknown) if you should have any new, worsening or (unknown) (no (unknown) (unknown) *What to do: (units (u nknown) date) unknown) (unknown) (no (unknown) (unknown) *You have been (units (unknown) date) diagnosed with [ ] unknown) (unknown) (no (unknown) (unknown) [id number] (units (unkn own) date) unknown) (unknown) (no (unknown) (unknown) 11/19/21 10:56 (units (unknown) date) unknown) (unknown) (no (unknown) (unknown) 11/19/21 10:57 (units (unknown) date) unknown) (unknown) (no (unknown) (unknown) 11/19/21 11:30 (units (unknown) date) unknown) (unknown) (no (unknown) (unknown) 11/19/21 12:36 (units (unknown) date) unknown) (unknown) (no (unknown) (unknown) 0RF (units (unkno wn) date) unknown) (unknown) (no (unknown) (unknown) 10:50 11/19/21 (units (unknown) date) unknown) (unknown) (no (unknown) (unknown) 11:20 11/19/21 (units (unknown) date) unknown) (unknown) (no (unknown) (unknown) 11:22 (units (unkno wn) date) unknown) (unknown) (no (unknown) (unknown) 11:30 11/19/21 (units (unknown) date) unknown) (unknown) (no (unknown) (unknown) 12:42 (units (unkno wn) date) unknown) (unknown) (no (unknown) (unknown) 76-year-old male (units (unknown) date) former smoker with unknown) history of COPD and hypertension, AFib, (unknown) (no (unknown) (unknown) ? (units (unkno wn) date) unknown) (unknown) (no (unknown) (unknown) ALT (<50) IU/L (units (unknown) date) unknown) (unknown) (no (unknown) (unknown) ALT 26 (<50) (units (unknown) date) IU/L unknown) (unknown) (no (unknown) (unknown) ANTIBIOTICS)] (units ( unknown) date) unknown) (unknown) (no (unknown) (unknown) AST (17-59) (units (unknown) date) IU/L unknown) (unknown) (no (unknown) (unknown) AST 31 (17-59) (units (unknown) date) IU/L unknown) (unknown) (no (unknown) (unknown) Achalasia (units (unkn own) date) unknown) (unknown) (no (unknown) (unknown) Activity (units (unkno wn) date) Restrictions/Additio unknown) nal Instructions: (unknown) (no (unknown) (unknown) Age/Sex: 76 / M (units (unknown) date) unknown) (unknown) (no (unknown) (unknown) Albumin (units (unkno wn) date) (3.5-5.0) g/dL unknown) (unknown) (no (unknown) (unknown) Albumin 4.6 (units (unknown) date) (3.5-5.0) g/dL unknown) (unknown) (no (unknown) (unknown) Albumin/Globulin (units (unknown) date) Ratio (1.0-2.8) unknown) (unknown) (no (unknown) (unknown) Albumin/Globulin (units (unknown) date) Ratio 1.5 unknown) (1.0-2.8) (unknown) (no (unknown) (unknown) Albuterol (units (unkn own) date) (Albuterol 2.5 Mg/3 unknown) Ml Neb (Adult)) 2.5 mg INH Q20M BLOSSOM (unknown) (no (unknown) (unknown) Albuterol/Ipratropi (unit s (unknown) date) um unknown) (Albuterol/Ipratropi um 3 Ml Ampul) 3 ml INH Q1H PRN (unknown) (no (unknown) (unknown) Alkaline (units (unkno wn) date) Phosphatase unknown) (38-126) U/L (unknown) (no (unknown) (unknown) Alkaline (units (unkno wn) date) Phosphatase 61 unknown) (38-126) U/L (unknown) (no (unknown) (unknown) Allergy/AdvReac (units (unknown) date) Type Severity unknown) Reaction Status Date / Time (unknown) (no (unknown) (unknown) Amoxicillin/Clavula (unit s (unknown) date) marah Potassium unknown) (Amoxicillin/Clav 875/125 Mg) 1 tab PO NOW (unknown) (no (unknown) (unknown) Anginal pain (units (u nknown) date) unknown) (unknown) (no (unknown) (unknown) Antibiotics) (units (u nknown) date) unknown) (unknown) (no (unknown) (unknown) Approved by: (units (u nknown) date) mohamud Morgan M.D. on 11/19/2021 at 11:56 ? (unknown) (no (unknown) (unknown) Asthma (units (unkno wn) date) unknown) (unknown) (no (unknown) (unknown) Atrial fibrillation (unit s (unknown) date) unknown) (unknown) (no (unknown) (unknown) BUN (9-20) (units ( unknown) date) mg/dL unknown) (unknown) (no (unknown) (unknown) BUN 13 (9-20) (units (unknown) date) mg/dL unknown) (unknown) (no (unknown) (unknown) BUN/Creatinine (units (unknown) date) Ratio (-) unknown) (unknown) (no (unknown) (unknown) BUN/Creatinine (units (unknown) date) Ratio 16.7 unknown) (-) (unknown) (no (unknown) (unknown) Baso # (Auto) (units ( unknown) date) (0-100) /uL unknown) (unknown) (no (unknown) (unknown) Baso # (Auto) 100 (unit s (unknown) date) (0-100) /uL unknown) (unknown) (no (unknown) (unknown) Baso % (Auto) (units ( unknown) date) (0-2) % unknown) (unknown) (no (unknown) (unknown) Baso % (Auto) 1.1 (unit s (unknown) date) (0-2) % unknown) (unknown) (no (unknown) (unknown) Blood Pressure (units (unknown) date) unknown) (unknown) (no (unknown) (unknown) Blood Pressure (units (unknown) date) 185/89 H 11/19/21 unknown) 10:50 (unknown) (no (unknown) (unknown) Blood Pressure (units (unknown) date) 185/89 H 158/88 H unknown) (unknown) (no (unknown) (unknown) Bones and chest (units (unknown) date) wall:? No suspicious unknown) bony abnormalities.? Soft tissues appear (unknown) (no (unknown) (unknown) Bronchiectasis (units (unknown) date) unknown) (unknown) (no (unknown) (unknown) Bronchiectasis with (unit s (unknown) date) (acute) exacerbation unknown) (unknown) (no (unknown) (unknown) CABG, and (units (unkn own) date) unknown) (unknown) (no (unknown) (unknown) CABG, pneumonia 1 (units (unknown) date) month ago, who is unknown) not on anticoagulants who presents at the (unknown) (no (unknown) (unknown) [facility], [facility], XR unknown) CHEST 1V, 10/07/2021, 21:56. (unknown) (no (unknown) (unknown) COPD (chronic (units ( unknown) date) obstructive unknown) pulmonary disease) (unknown) (no (unknown) (unknown) COVID19 -Nasal (units (unknown) date) RAPID/Pre-Proc Stat unknown) (unknown) (no (unknown) (unknown) Calcium (units (unkno wn) date) (8.4-10.2) mg/dL unknown) (unknown) (no (unknown) (unknown) Calcium 8.5 (units (unknown) date) (8.4-10.2) mg/dL unknown) (unknown) (no (unknown) (unknown) Carbon Dioxide (units (unknown) date) (22-32) mmol/L unknown) (unknown) (no (unknown) (unknown) Carbon Dioxide (units (unknown) date) 25 (22-32) mmol/L unknown) (unknown) (no (unknown) (unknown) Cardio: denies (units (unknown) date) chest pain, unknown) palpitations, edema (unknown) (no (unknown) (unknown) Cardiovascular: (units (unknown) date) regular rate and unknown) rhythm, no peripheral edema, warm extremities (unknown) (no (unknown) (unknown) Cervical spinal (units (unknown) date) stenosis unknown) (unknown) (no (unknown) (unknown) Chest x-ray: (units (u nknown) date) unknown) (unknown) (no (unknown) (unknown) Chief Complaint: (units (unknown) date) Shortness of unknown) Breath/Dyspnea (unknown) (no (unknown) (unknown) Chloride (units (unkno wn) date) (98-107) mmol/L unknown) (unknown) (no (unknown) (unknown) Chloride 103 (units (unknown) date) (98-107) mmol/L unknown) (unknown) (no (unknown) (unknown) Chronic obstructive (unit s (unknown) date) pulmonary disease unknown) (10/22/16) (unknown) (no (unknown) (unknown) Clinical (units (unkno wn) date) Impression: unknown) (unknown) (no (unknown) (unknown) Complete Blood (units (unknown) date) Count AUTO DIFF Stat unknown) (unknown) (no (unknown) (unknown) Comprehensive (units ( unknown) date) Metabolic Panel Stat unknown) (unknown) (no (unknown) (unknown) Consult to (units (unk nown) date) Respiratory Therapy unknown) Evaluate + Treat (unknown) (no (unknown) (unknown) Coronary artery (units (unknown) date) disease unknown) (unknown) (no (unknown) (unknown) Course (units (unkno wn) date) unknown) (unknown) (no (unknown) (unknown) Creatinine (units (unk nown) date) (0.66-1.25) mg/dL unknown) (unknown) (no (unknown) (unknown) Creatinine 0.78 (units (unknown) date) (0.66-1.25) mg/dL unknown) (unknown) (no (unknown) (unknown) : 1945 (units (unknown) date) Acct:[id number] unknown) (unknown) (no (unknown) (unknown) Kimmy Gomez MD (units (unknown) date) [Primary Care unknown) Provider] - (unknown) (no (unknown) (unknown) Departure (units (unkn own) date) unknown) (unknown) (no (unknown) (unknown) Dictated by: (units (u nknown) date) mohamud Morgan M.D. on 11/19/2021 at 11:55 ? ? (unknown) (no (unknown) (unknown) Discharge Plan (units (unknown) date) unknown) (unknown) (no (unknown) (unknown) Discontinued (units (u nknown) date) Medications unknown) (unknown) (no (unknown) (unknown) ECG Data (units (unkno wn) date) unknown) (unknown) (no (unknown) (unknown) EKG reviewed by (units (unknown) date) myself and unknown) Justine reveals normal sinus rhythm at [84] bpm (unknown) (no (unknown) (unknown) EKG-12 Lead Stat (units (unknown) date) unknown) (unknown) (no (unknown) (unknown) ER Physician: (units ( unknown) date) Frida Pruitt unknown) (unknown) (no (unknown) (unknown) Eos # (Auto) (units (u nknown) date) (0-450) /uL unknown) (unknown) (no (unknown) (unknown) Eos # (Auto) 400 (units (unknown) date) (0-450) /uL unknown) (unknown) (no (unknown) (unknown) Eos % (Auto) (units (u nknown) date) (2-4) % unknown) (unknown) (no (unknown) (unknown) Eos % (Auto) 7.6 (units (unknown) date) H (2-4) % unknown) (unknown) (no (unknown) (unknown) Estimated GFR > (units (unknown) date) 60 (>60) mL/min unknown) (unknown) (no (unknown) (unknown) Estimated GFR (units ( unknown) date) (>60) mL/min unknown) (unknown) (no (unknown) (unknown) Exam (units (unkno wn) date) unknown) (unknown) (no (unknown) (unknown) Exam Narrative: (units (unknown) date) unknown) (unknown) (no (unknown) (unknown) Eyes: denies visual (unit s (unknown) date) changes, eye pain unknown) (unknown) (no (unknown) (unknown) Eyes: pupils equal (units (unknown) date) round and reactive, unknown) EOMI, conjunctiva normal (unknown) (no (unknown) (unknown) FINDINGS:? (units (unk nown) date) unknown) (unknown) (no (unknown) (unknown) Family History (units (unknown) date) (Reviewed 11/19/21 @ unknown) 13:21 by [facility]) (unknown) (no (unknown) (unknown) GI: abdomen soft, (units (unknown) date) nontender to unknown) palpation, nondistended, no masses, no exquisite (unknown) (no (unknown) (unknown) GI: denies (units (unk nown) date) abdominal pain, unknown) nausea, vomiting, or diarrhea (unknown) (no (unknown) (unknown) : denies dysuria, (unit s (unknown) date) hematuria, urinary unknown) retention, frequency or incontinence (unknown) (no (unknown) (unknown) General (units (unkno wn) date) unknown) (unknown) (no (unknown) (unknown) General: (units (unkno wn) date) cooperative, unknown) comfortable, in no acute distress, well developed and well (unknown) (no (unknown) (unknown) General: denies (units (unknown) date) fever, chills, unknown) malaise, sweats, fatigue (unknown) (no (unknown) (unknown) GenericComposite[Pl (unit s (unknown) date) t Count (150-400) unknown) X10^3/uL ] (unknown) (no (unknown) (unknown) GenericComposite[Pl (unit s (unknown) date) t Count 207 unknown) (150-400) X10^3/uL ] (unknown) (no (unknown) (unknown) GenericComposite[RB (unit s (unknown) date) C (4.5-5.9) unknown) X10^6/uL ] (unknown) (no (unknown) (unknown) GenericComposite[RB (unit s (unknown) date) C 4.60 (4.5-5.9) unknown) X10^6/uL ] (unknown) (no (unknown) (unknown) GenericComposite[WB (unit s (unknown) date) C (4.5-11.0) unknown) X10^3/uL ] (unknown) (no (unknown) (unknown) GenericComposite[WB (unit s (unknown) date) C 5.3 (4.5-11.0) unknown) X10^3/uL ] (unknown) (no (unknown) (unknown) Globulin (units (unkno wn) date) (1.7-4.1) g/dL unknown) (unknown) (no (unknown) (unknown) Globulin 3.1 (units (unknown) date) (1.7-4.1) g/dL unknown) (unknown) (no (unknown) (unknown) Glucose (80-110) (unit s (unknown) date) mg/dL unknown) (unknown) (no (unknown) (unknown) Glucose 201 H (units (unknown) date) (80-110) mg/dL unknown) (unknown) (no (unknown) (unknown) H/O arthroscopic (units (unknown) date) knee surgery unknown) (11/14/17) (unknown) (no (unknown) (unknown) HPI - SOB/Dyspnea (units (unknown) date) unknown) (unknown) (no (unknown) (unknown) HPI Narrative: (units (unknown) date) unknown) (unknown) (no (unknown) (unknown) Hct (41-53) % (units (unknown) date) unknown) (unknown) (no (unknown) (unknown) Hct 43.2 (units (unk nown) date) (41-53) % unknown) (unknown) (no (unknown) (unknown) Head/Neck: denies (units (unknown) date) headache, neck pain, unknown) dizziness (unknown) (no (unknown) (unknown) Head: atraumatic, (units (unknown) date) symmetrical facial unknown) expressions (unknown) (no (unknown) (unknown) Hgb (13.5-17.5) (units (unknown) date) g/dL unknown) (unknown) (no (unknown) (unknown) Hgb 14.4 (units (unk nown) date) (13.5-17.5) g/dL unknown) (unknown) (no (unknown) (unknown) History of Present (units (unknown) date) Illness unknown) (unknown) (no (unknown) (unknown) History of aortic (units (unknown) date) dissection unknown) () (unknown) (no (unknown) (unknown) History of (units (unk nown) date) arthroplasty of unknown) right knee (unknown) (no (unknown) (unknown) 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 (unknown) (no (unknown) (unknown) History of cardiac (units (unknown) date) cath () unknown) (unknown) (no (unknown) (unknown) History of (units (unk nown) date) esophageal surgery unknown) (unknown) (no (unknown) (unknown) History of incision (unit s (unknown) date) and drainage (-2016) unknown) (unknown) (no (unknown) (unknown) History of prior (units (unknown) date) ablation treatment unknown) (-03/2017) (unknown) (no (unknown) (unknown) History of surgery (units (unknown) date) unknown) (unknown) (no (unknown) (unknown) Hx of (units (unkno wn) date) cholecystectomy unknown) (unknown) (no (unknown) (unknown) Hx of hernia repair (unit s (unknown) date) unknown) (unknown) (no (unknown) (unknown) Hx of sinus surgery (unit s (unknown) date) unknown) (unknown) (no (unknown) (unknown) Hydromorphone HCl (units (unknown) date) (Hydromorphone 0.5 unknown) Mg Inj) 0.5 mg IV NOW ONE (unknown) (no (unknown) (unknown) Hypertension (units (u nknown) date) unknown) (unknown) (no (unknown) (unknown) IMPRESSION:? No (units (unknown) date) acute unknown) cardiopulmonary abnormality. (unknown) (no (unknown) (unknown) INDICATIONS:? (units ( unknown) date) shortness of breath unknown) (unknown) (no (unknown) (unknown) INHIBITOR] (units (unk nown) date) unknown) (unknown) (no (unknown) (unknown) Imaging Data (units (u nknown) date) unknown) (unknown) (no (unknown) (unknown) Independently (units ( unknown) date) reviewed vitals unknown) signs and nursing notes. (unknown) (no (unknown) (unknown) Inhibitor MUSCLES (unit s (unknown) date) unknown) (unknown) (no (unknown) (unknown) Initial Vital Signs (unit s (unknown) date) unknown) (unknown) (no (unknown) (unknown) Initial Vital (units ( unknown) date) Signs: unknown) (unknown) (no (unknown) (unknown) Interpretation: (units (unknown) date) unknown) (unknown) (no (unknown) (unknown) Ischemic (units (unkno wn) date) cardiomyopathy unknown) (unknown) (no (unknown) (unknown) Lab Data (units (unkno wn) date) unknown) (unknown) (no (unknown) (unknown) Labs: (units (unkno wn) date) unknown) (unknown) (no (unknown) (unknown) Lactate (units (unkno wn) date) (0.7-2.1) mmol/L unknown) (unknown) (no (unknown) (unknown) Lactate 3.7 H (units (unknown) date) (0.7-2.1) mmol/L unknown) (unknown) (no (unknown) (unknown) Lactate (Lactic (units (unknown) date) Acid) Stat unknown) (unknown) (no (unknown) (unknown) Limitations: no (units (unknown) date) limitations unknown) (unknown) (no (unknown) (unknown) Lungs and pleura:? (units (unknown) date) Coarsened unknown) interstitial markings.? No consolidation, pleural (unknown) (no (unknown) (unknown) Lymph # (Auto) (units (unknown) date) (8291-5274) /uL unknown) (unknown) (no (unknown) (unknown) Lymph # (Auto) (units (unknown) date) 1100 (5622-2289) unknown) /uL (unknown) (no (unknown) (unknown) Lymph % (Auto) (units (unknown) date) (25-40) % unknown) (unknown) (no (unknown) (unknown) Lymph % (Auto) (units (unknown) date) 19.9 L (25-40) % unknown) (unknown) (no (unknown) (unknown) MCH (26-34) PG (units (unknown) date) unknown) (unknown) (no (unknown) (unknown) MCH 31.4 (units (unk nown) date) (26-34) PG unknown) (unknown) (no (unknown) (unknown) MCHC (30-36) % (units (unknown) date) unknown) (unknown) (no (unknown) (unknown) MCHC 33.4 (units (un known) date) (30-36) % unknown) (unknown) (no (unknown) (unknown) MCV (80-100) fL (unit s (unknown) date) unknown) (unknown) (no (unknown) (unknown) MCV 93.9 (units (unk nown) date) (80-100) fL unknown) (unknown) (no (unknown) (unknown) MDM - SOB/Dyspnea (units (unknown) date) unknown) (unknown) (no (unknown) (unknown) MSK: denies joint (units (unknown) date) pain, muscle unknown) weakness, endorses low back pain at baseline (unknown) (no (unknown) (unknown) MSK: moves all (units ( unknown) date) extremities, unknown) ambulatory w/steady gait, neurovascularly intact, no (unknown) (no (unknown) (unknown) Magnesium (units (unkn own) date) (1.6-2.3) mg/dL unknown) (unknown) (no (unknown) (unknown) Magnesium 1.8 (units (unknown) date) (1.6-2.3) mg/dL unknown) (unknown) (no (unknown) (unknown) Magnesium Stat (units (unknown) date) unknown) (unknown) (no (unknown) (unknown) Measure peak (units (u nknown) date) expiratory flow ONCE unknown) (unknown) (no (unknown) (unknown) Mediastinum:? (units ( unknown) date) Mediastinal contours unknown) are normal.? Heart size is normal.? (unknown) (no (unknown) (unknown) Medical History (units (unknown) date) (Reviewed 11/19/21 @ unknown) 13:21 by Frida Pruitt, [facility]) (unknown) (no (unknown) (unknown) Methylprednisolone (units (unknown) date) (Methylprednisolone unknown) 125 Mg/2 Ml Vial) 125 mg IV NOW ONE (unknown) (no (unknown) (unknown) Mode of arrival: (units (unknown) date) Wheelchair unknown) (unknown) (no (unknown) (unknown) [place] # (Auto) (units ( unknown) date) (0-900) /uL unknown) (unknown) (no (unknown) (unknown) [place] # (Auto) 400 (unit s (unknown) date) (0-900) /uL unknown) (unknown) (no (unknown) (unknown) [place] % (Auto) (units ( unknown) date) (3-14) % unknown) (unknown) (no (unknown) (unknown) [place] % (Auto) 7.9 (unit s (unknown) date) (3-14) % unknown) (unknown) (no (unknown) (unknown) Mother (units (unknown) date) Stroke unknown) (unknown) (no (unknown) (unknown) Mouth/Throat: uvula (unit s (unknown) date) midline, moist mucus unknown) membranes (unknown) (no (unknown) (unknown) Narcotic dependence (unit s (unknown) date) unknown) (unknown) (no (unknown) (unknown) Narrative (units (unkn own) date) unknown) (unknown) (no (unknown) (unknown) Narrative: (units (unk nown) date) unknown) (unknown) (no (unknown) (unknown) Neck pain, chronic (units (unknown) date) unknown) (unknown) (no (unknown) (unknown) Neck: supple, (units ( unknown) date) atraumatic, without unknown) lymphadenopathy. (unknown) (no (unknown) (unknown) Neuro: denies (units ( unknown) date) numbness, tingling unknown) (unknown) (no (unknown) (unknown) Neuro: normal (units ( unknown) date) speech and unknown) cognition, A+O x3, normal tone (unknown) (no (unknown) (unknown) Neut # (Auto) (units ( unknown) date) (8657-3380) /uL unknown) (unknown) (no (unknown) (unknown) Neut # (Auto) (units ( unknown) date) 3400 (6260-8699) unknown) /uL (unknown) (no (unknown) (unknown) Neut % (Auto) (units ( unknown) date) (50-75) % unknown) (unknown) (no (unknown) (unknown) Neut % (Auto) (units ( unknown) date) 63.5 (50-75) % unknown) (unknown) (no (unknown) (unknown) No Action (units (unkn own) date) unknown) (unknown) (no (unknown) (unknown) Nose: nares patent, (unit s (unknown) date) no rhinorrhea unknown) (unknown) (no (unknown) (unknown) ONE (units (unkno wn) date) unknown) (unknown) (no (unknown) (unknown) Ordered: (units (unkno wn) date) unknown) (unknown) (no (unknown) (unknown) Orders (units (unkno wn) date) unknown) (unknown) (no (unknown) (unknown) Oxycodone/Acetaminop (unit s (unknown) date) hen unknown) (Oxycodone/Acetamino phen 5/325 Tablet) 1 tab PO NOW ONE (unknown) (no (unknown) (unknown) PROCEDURE:? XR (units (unknown) date) CHEST 2V unknown) (unknown) (no (unknown) (unknown) Patient (units (unkno wn) date) Disposition: Home unknown) (unknown) (no (unknown) (unknown) Patient History (units (unknown) date) unknown) (unknown) (no (unknown) (unknown) Patient: (units (unkno wn) date) Dominic Viveros Gisele unknown) MR#: M (unknown) (no (unknown) (unknown) Potassium (units (unkn own) date) (3.4-5.1) mmol/L unknown) (unknown) (no (unknown) (unknown) Potassium 4.1 (units (unknown) date) (3.4-5.1) mmol/L unknown) (unknown) (no (unknown) (unknown) Prescriptions: (units (unknown) date) unknown) (unknown) (no (unknown) (unknown) Psych: mental (units ( unknown) date) status is grossly unknown) normal, congruent mood, normal affect, pleasant (unknown) (no (unknown) (unknown) Pulse Oximetry 95 (units (unknown) date) 11/19/21 10:50 unknown) (unknown) (no (unknown) (unknown) Pulse Oximetry 95 (units (unknown) date) 92 unknown) (unknown) (no (unknown) (unknown) Pulse Oximetry 95 (units (unknown) date) 92 94 unknown) (unknown) (no (unknown) (unknown) Pulse Rate 83 (units (unknown) date) 11/19/21 10:50 unknown) (unknown) (no (unknown) (unknown) Pulse Rate 81 91 H (units (unknown) date) unknown) (unknown) (no (unknown) (unknown) Pulse Rate 83 96 H (units (unknown) date) 92 H unknown) (unknown) (no (unknown) (unknown) Qualifiers: (units (un known) date) unknown) (unknown) (no (unknown) (unknown) RDW (11.6-14.8) (units (unknown) date) % unknown) (unknown) (no (unknown) (unknown) RDW 13.5 (units (unk nown) date) (11.6-14.8) % unknown) (unknown) (no (unknown) (unknown) RT Consult Eval and (unit s (unknown) date) Treat Now unknown) (unknown) (no (unknown) (unknown) Referrals: (units (unk nown) date) unknown) (unknown) (no (unknown) (unknown) Related Data (units (u nknown) date) unknown) (unknown) (no (unknown) (unknown) Respiratory Rate (units (unknown) date) 22 11/19/21 10:50 unknown) (unknown) (no (unknown) (unknown) Respiratory Rate 21 (unit s (unknown) date) unknown) (unknown) (no (unknown) (unknown) Respiratory Rate 22 (unit s (unknown) date) unknown) (unknown) (no (unknown) (unknown) Respiratory: (units (u nknown) date) Endorses dyspnea, unknown) +cough, increased sinus drainage, productive (unknown) (no (unknown) (unknown) Respiratory: normal (unit s (unknown) date) effort, able to unknown) speak in complete sentences, no audible (unknown) (no (unknown) (unknown) Result diagrams: (units (unknown) date) unknown) (unknown) (no (unknown) (unknown) Review of Systems (units (unknown) date) unknown) (unknown) (no (unknown) (unknown) S/P CABG x 3 (units (u nknown) date) () unknown) (unknown) (no (unknown) (unknown) S/P cervical spinal (unit s (unknown) date) fusion unknown) (unknown) (no (unknown) (unknown) S/P lumbar fusion (units (unknown) date) unknown) (unknown) (no (unknown) (unknown) SARS-CoV-2 (PCR) (units (unknown) date) (Negative) unknown) (unknown) (no (unknown) (unknown) SARS-CoV-2 (PCR) (units (unknown) date) Negative unknown) (Negative) (unknown) (no (unknown) (unknown) Signed By: (units (unk nown) date) unknown) (unknown) (no (unknown) (unknown) Skin: brisk (units (un known) date) capillary refill, no unknown) rash, no erythema (unknown) (no (unknown) (unknown) Skin: denies rash, (units (unknown) date) itching, skin unknown) lesions or other (unknown) (no (unknown) (unknown) Smoking Status: (units (unknown) date) Former smoker unknown) (unknown) (no (unknown) (unknown) Smoking Status: (units (unknown) date) Former smoker unknown) (unknown) (no (unknown) (unknown) Social History (units (unknown) date) (Reviewed 11/19/21 @ unknown) 13:21 by [facility]) (unknown) (no (unknown) (unknown) Sodium (137-145) (unit s (unknown) date) mmol/L unknown) (unknown) (no (unknown) (unknown) Sodium 140 (units ( unknown) date) (137-145) mmol/L unknown) (unknown) (no (unknown) (unknown) Sodium Chloride (units (unknown) date) (Normal Saline 0.9%) unknown) 500 mls @ 1,000 mls/hr IV BOLUS ONE (unknown) (no (unknown) (unknown) Source: patient and (unit s (unknown) date) family unknown) (unknown) (no (unknown) (unknown) Stated Complaint: (units (unknown) date) [place] unknown) PNEUMONIA-PHYSICAIN REFERRED (unknown) (no (unknown) (unknown) Ekjzxcz-BKE-IpP (units (unknown) date) Reductase AdvReac unknown) Mild WEAK Verified 04/16/21 12:13 (unknown) (no (unknown) (unknown) Substance Use Type: (unit s (unknown) date) does not use unknown) (unknown) (no (unknown) (unknown) Sulfa (Sulfonamide (units (unknown) date) Allergy Mild RASH unknown) Verified 04/16/21 12:13 (unknown) (no (unknown) (unknown) Surgical History (units (unknown) date) (Reviewed 11/19/21 @ unknown) 13:21 by [facility]) (unknown) (no (unknown) (unknown) Surgical changes (units (unknown) date) and devices:? unknown) Redemonstrated sternotomy wires, evidence of (unknown) (no (unknown) (unknown) TECHNIQUE:? 2 views (unit s (unknown) date) of the chest were unknown) acquired.? (unknown) (no (unknown) (unknown) Temperature (units (un known) date) unknown) (unknown) (no (unknown) (unknown) Temperature 97.8 F (unit s (unknown) date) 11/19/21 10:50 unknown) (unknown) (no (unknown) (unknown) Temperature 97.8 F (units (unknown) date) unknown) (unknown) (no (unknown) (unknown) Time Seen by (units (u nknown) date) Provider: 11/19/21 unknown) 12:02 (unknown) (no (unknown) (unknown) Total Bilirubin (units (unknown) date) (0.2-1.3) mg/dL unknown) (unknown) (no (unknown) (unknown) Total Bilirubin (units (unknown) date) 0.5 (0.2-1.3) unknown) mg/dL (unknown) (no (unknown) (unknown) Total Protein (units ( unknown) date) (6.3-8.2) g/dL unknown) (unknown) (no (unknown) (unknown) Total Protein (units ( unknown) date) 7.7 (6.3-8.2) g/dL unknown) (unknown) (no (unknown) (unknown) Ventricular (units (un known) date) bigeminy unknown) (unknown) (no (unknown) (unknown) Vital Signs (units (un known) date) unknown) (unknown) (no (unknown) (unknown) Vital signs: (units (u nknown) date) unknown) (unknown) (no (unknown) (unknown) XR chest 2V Stat (units (unknown) date) unknown) (unknown) (no (unknown) (unknown) [Embedded Image Not (unit s (unknown) date) Available] unknown) (unknown) (no (unknown) (unknown) [[id number]-HRR-QNO (units (unknown) date) REDUCTASE unknown) (unknown) (no (unknown) (unknown) [SULFA (SULFONAMIDE (unit s (unknown) date) unknown) (unknown) (no (unknown) (unknown) acetaminophen 300 (units (unknown) date) mg-codeine 30 mg 1 unknown) tab PO Q6HR PRN 10/08/21 10/08/21 (unknown) (no (unknown) (unknown) acetaminophen 325 (units (unknown) date) mg tablet 650 mg PO unknown) Q6H PRN #60 tab 11/06/20 (unknown) (no (unknown) (unknown) alcohol intake (units (unknown) date) frequency: unknown) holidays/special occasions only (unknown) (no (unknown) (unknown) alcohol intake: (units (unknown) date) current unknown) (unknown) (no (unknown) (unknown) allergies. He (units (unknown) date) endorses lot of unknown) sinus congestion, and yearly issues with a (unknown) (no (unknown) (unknown) and cooperative (units (unknown) date) unknown) (unknown) (no (unknown) (unknown) appointment. Let (units (unknown) date) them know you were unknown) seen in the Emergency Department and that we (unknown) (no (unknown) (unknown) asked that you be (units (unknown) date) seen for follow-up. unknown) We will electronically transmit a record (unknown) (no (unknown) (unknown) benzonatate 100 mg (units (unknown) date) capsule 100 mg PO unknown) TID PRN #14 cap 03/05/21 (unknown) (no (unknown) (unknown) buprenorphine (units ( unknown) date) [BUPRENORPHINE] unknown) AdvReac Mild NAUSEA, Verified 04/16/21 12:13 (unknown) (no (unknown) (unknown) cefdinir 300 mg (units (unknown) date) capsule 300 mg PO unknown) BID #20 cap 10/09/21 (unknown) (no (unknown) (unknown) celecoxib (units (unkn own) date) [CELECOXIB] Allergy unknown) Mild SWELLING Verified 04/16/21 12:13 (unknown) (no (unknown) (unknown) cervical spine (units (unknown) date) hardware.? unknown) (unknown) (no (unknown) (unknown) cetirizine 10 mg (units (unknown) date) capsule (Zyrtec) 10 unknown) mg PO DAILY 05/22/19 10/08/21 (unknown) (no (unknown) (unknown) concerning (units (unk nown) date) symptoms, such as unknown) [fever greater than 101F, chills, worsening pain, (unknown) (no (unknown) (unknown) cough, denies any (units (unknown) date) shortness of breath unknown) with exertion or orthopnea (unknown) (no (unknown) (unknown) diazepam [From (units (unknown) date) Valium] AdvReac unknown) Confusion Verified 04/16/21 12:13 (unknown) (no (unknown) (unknown) effusions (units (unkn own) date) unknown) (unknown) (no (unknown) (unknown) establish care with (unit s (unknown) date) [place] [facility] primary care providers. (unknown) (no (unknown) (unknown) ferrous sulfate 325 (unit s (unknown) date) mg (65 mg 325 mg PO unknown) DAILY 10/19/19 10/08/21 (unknown) (no (unknown) (unknown) fluticasone (units (un known) date) propionate 50 1 unknown) spray INTRANASAL DAILY PRN #0 11/02/17 10/08/21 (unknown) (no (unknown) (unknown) furosemide 40 mg (units (unknown) date) tablet (Lasix) 40 mg unknown) PO DAILY 10/08/21 10/08/21 (unknown) (no (unknown) (unknown) gain.? He denies (units (unknown) date) nausea, vomiting or unknown) diarrhea. (unknown) (no (unknown) (unknown) glipizide 2.5 mg (units (unknown) date) tablet, extended 2.5 unknown) mg PO DAILY 10/08/21 10/08/21 (unknown) (no (unknown) (unknown) groomed (units (unkno wn) date) unknown) (unknown) (no (unknown) (unknown) heezes throughout (units (unknown) date) all cruz, no unknown) crackles, rales, or absent sounds. (unknown) (no (unknown) (unknown) household members: (units (unknown) date) spouse unknown) (unknown) (no (unknown) (unknown) hyoscyamine (units (un known) date) [HYOSCYAMINE] unknown) AdvReac Mild LEG Verified 04/16/21 12:13 (unknown) (no (unknown) (unknown) iron) (units (unkno wn) date) tablet,delayed unknown) release (unknown) (no (unknown) (unknown) latex [LATEX] (units ( unknown) date) Allergy Mild RASH unknown) Verified 04/16/21 12:13 (unknown) (no (unknown) (unknown) levalbuterol HCl (units (unknown) date) 1.25 mg/3 mL 3 ml unknown) INHALATION Q6H PRN 10/16/18 10/08/21 (unknown) (no (unknown) (unknown) levalbuterol (units (u nknown) date) tartrate 45 1 puff unknown) INHALATION Q4-6H PRN #15 06/22/18 (unknown) (no (unknown) (unknown) lightheaded.? He (units (unknown) date) denies any unknown) exertional component, medication change or weight (unknown) (no (unknown) (unknown) low back pain which (unit s (unknown) date) is also worse with unknown) coughing. He is not dizzy nor weak or (unknown) (no (unknown) (unknown) mcg/actuation (units ( unknown) date) aerosol inhaler gram unknown) (unknown) (no (unknown) (unknown) mcg/actuation nasal (unit s (unknown) date) unknown) (unknown) (no (unknown) (unknown) meclizine 25 mg (units (unknown) date) tablet 25 mg PO QID unknown) PRN #30 tab 10/09/21 (unknown) (no (unknown) (unknown) metoprolol tartrate (unit s (unknown) date) 100 mg tablet 100 mg unknown) PO BID 10/16/18 10/08/21 (unknown) (no (unknown) (unknown) multivitamin (units (u nknown) date) (Multiple Vitamins) unknown) 1 tab PO DAILY #0 12/20/16 10/08/21 (unknown) (no (unknown) (unknown) of today's note if (units (unknown) date) your PCP is in our unknown) system (unknown) (no (unknown) (unknown) or pneumothorax.? (units (unknown) date) unknown) (unknown) (no (unknown) (unknown) oxycodone 5 mg (units (unknown) date) tablet 10 mg PO unknown) Q4-5H PRN #60 tab 11/06/20 (unknown) (no (unknown) (unknown) persistent vomiting (unit s (unknown) date) or other bothersome unknown) symptoms] (unknown) (no (unknown) (unknown) productive cough (units (unknown) date) this time of year. unknown) He has had no fever or chills but states (unknown) (no (unknown) (unknown) release 24 hr (units ( unknown) date) (Glucotrol XL) unknown) (unknown) (no (unknown) (unknown) request of his (units (unknown) date) primary care unknown) provider for 3 days of increased upper respiratory (unknown) (no (unknown) (unknown) solution for (units (u nknown) date) nebulization unknown) (unknown) (no (unknown) (unknown) spray,suspension (units (unknown) date) unknown) (unknown) (no (unknown) (unknown) stridor, or rales. (units (unknown) date) No retractions or unknown) tachypnea. Inspiratory and expiratory w (unknown) (no (unknown) (unknown) substance use type: (unit s (unknown) date) does not use unknown) (unknown) (no (unknown) (unknown) tablet (units (unkno wn) date) unknown) (unknown) (no (unknown) (unknown) tenderness with (units (unknown) date) exam, without unknown) guarding or rebound. (unknown) (no (unknown) (unknown) that he is more (units (unknown) date) tired than usual, unknown) has a frontal headache due to coughing ongoing (unknown) (no (unknown) (unknown) trazodone 100 mg (units (unknown) date) tablet 400 tab PO unknown) BEDTIME 12/09/17 10/08/21 (unknown) (no (unknown) (unknown) unremarkable.? (units (unknown) date) unknown) (unknown) (no (unknown) (unknown) varenicline (units (un known) date) [VARENICLINE] unknown) AdvReac Severe Paranoia Verified 04/16/21 12:13 (unknown) (no (unknown) (unknown) weakness (units (unkno wn) date) unknown) (unknown) (no (unknown) (unknown) wheezing, shortness (unit s (unknown) date) of breath, cough and unknown) congestion due to the seasonal (unknown) (no (unknown) (unknown) with rightward axis (units (unknown) date) and intervals. No unknown) STEMI, ST segment changes, arrhythmia, or Result panel 8 (unknown) (no date) (unknown) (unknown) 1.8 mmol/L (unkn own) Result panel 9 (unknown) (no (unknown) (unknown) (no value) (units (unk nown) date) unknown) (unknown) (no (unknown) (unknown) Radiologist's (units ( unknown) date) Impression: unknown) (unknown) (no (unknown) (unknown) *Please continue to (unit s (unknown) date) take your regular unknown) medications as directed. (unknown) (no (unknown) (unknown) Date of Service: (units (unknown) date) 11/19/21 unknown) (unknown) (no (unknown) (unknown) (no value) (units (unk nown) date) unknown) (unknown) (no (unknown) (unknown) <Electronically (units (unknown) date) signed by Frida Wolfe unknown) [facility] Crew> (unknown) (no (unknown) (unknown) 11/19/21 11:30 (units (unknown) date) unknown) (unknown) (no (unknown) (unknown) 11/19/21 1522 (units ( unknown) date) unknown) (unknown) (no (unknown) (unknown) 1 puff INHALATION (units (unknown) date) Q4-6H PRN (Reason: unknown) shortness of breath or wheezing) Qty: 15 (unknown) (no (unknown) (unknown) 1 spray Intranasal (units (unknown) date) DAILY PRN (Reason: unknown) Allergy Symptoms) Qty: 0 0RF (unknown) (no (unknown) (unknown) 1 tab PO BID 7 Days (unit s (unknown) date) Qty: 14 0RF unknown) (unknown) (no (unknown) (unknown) 1 tab PO DAILY Qty: (unit s (unknown) date) 0 0RF unknown) (unknown) (no (unknown) (unknown) 1 tab PO Q6HR PRN (units (unknown) date) (Reason: Back Pain) unknown) 0RF (unknown) (no (unknown) (unknown) 1 tab PO Q8H PRN (units (unknown) date) (Reason: pain) Qty: unknown) 10 0RF (unknown) (no (unknown) (unknown) 1 tab PO TID PRN (units (unknown) date) (Reason: pain) Qty: unknown) 10 0RF (unknown) (no (unknown) (unknown) 10 mg PO DAILY 0RF (units (unknown) date) unknown) (unknown) (no (unknown) (unknown) 10 mg PO Q4-5H PRN (units (unknown) date) (Reason: Pain, unknown) Severe (7-10)) Qty: 60 0RF (unknown) (no (unknown) (unknown) 100 mg PO BID 0RF (units (unknown) date) unknown) (unknown) (no (unknown) (unknown) 100 mg PO TID PRN (units (unknown) date) (Reason: cough) Qty: unknown) 14 0RF (unknown) (no (unknown) (unknown) 2 g topical QID (units (unknown) date) Qty: 100 0RF unknown) (unknown) (no (unknown) (unknown) 2.5 mg PO DAILY 0RF (unit s (unknown) date) unknown) (unknown) (no (unknown) (unknown) 25 mg PO QID PRN (units (unknown) date) (Reason: vertigo) unknown) Qty: 30 0RF (unknown) (no (unknown) (unknown) 3 ml Inhalation Q6H (unit s (unknown) date) PRN (Reason: unknown) Shortness Of Breath) 0RF (unknown) (no (unknown) (unknown) 300 mg PO BID Qty: (units (unknown) date) 20 0RF unknown) (unknown) (no (unknown) (unknown) 325 mg PO DAILY 0RF (unit s (unknown) date) unknown) (unknown) (no (unknown) (unknown) 40 mg PO DAILY 0RF (units (unknown) date) unknown) (unknown) (no (unknown) (unknown) 400 tab PO BEDTIME (units (unknown) date) 0RF unknown) (unknown) (no (unknown) (unknown) 50 mg PO DAILY 5 (units (unknown) date) Days 0RF unknown) (unknown) (no (unknown) (unknown) 50 mg PO DAILY Qty: (unit s (unknown) date) 5 0RF unknown) (unknown) (no (unknown) (unknown) 500 mg PO Q8H PRN (units (unknown) date) (Reason: muscle unknown) spasm) Qty: 14 0RF (unknown) (no (unknown) (unknown) 650 mg PO Q6H PRN (units (unknown) date) (Reason: pain) Qty: unknown) 60 0RF (unknown) (no (unknown) (unknown) ANXIETY, (units (unkno wn) date) unknown) (unknown) (no (unknown) (unknown) Admin: 11/19/21 (units (unknown) date) 12:53 Dose: 1,000 unknown) mls/hr (unknown) (no (unknown) (unknown) Allergies (units (unkn own) date) unknown) (unknown) (no (unknown) (unknown) DIZZINESS (units (unkn own) date) unknown) (unknown) (no (unknown) (unknown) Documented by: (units (unknown) date) ATAYLOR unknown) (unknown) (no (unknown) (unknown) Documented by: (units (unknown) date) JFREELA unknown) (unknown) (no (unknown) (unknown) Documented by: (units (unknown) date) MICHELLE unknown) (unknown) (no (unknown) (unknown) ED Orders (units (unkn own) date) unknown) (unknown) (no (unknown) (unknown) EXPOSURE (units (unkno wn) date) unknown) (unknown) (no (unknown) (unknown) Emergency Report (units (unknown) date) unknown) (unknown) (no (unknown) (unknown) Home Medications (units (unknown) date) unknown) (unknown) (no (unknown) (unknown) INHALE 1 VIAL PER (units (unknown) date) NEBULIZER EVERY 6 unknown) HOURS NEEDED (unknown) (no (unknown) (unknown) [facility] (units (unknown) date) [address] unknown) [place] [address] (unknown) (no (unknown) (unknown) JERKING, (units (unkno wn) date) unknown) (unknown) (no (unknown) (unknown) Lab Results (units (un known) date) unknown) (unknown) (no (unknown) (unknown) Label Comments: (units (unknown) date) unknown) (unknown) (no (unknown) (unknown) Last Admin: (units (un known) date) 11/19/21 12:42 unknown) Dose: 3 ml (unknown) (no (unknown) (unknown) Last Admin: (units (un known) date) 11/19/21 12:53 unknown) Dose: 125 mg (unknown) (no (unknown) (unknown) Last Admin: (units (un known) date) 11/19/21 12:54 unknown) Dose: 0.5 mg (unknown) (no (unknown) (unknown) Last Admin: (units (un known) date) 11/19/21 12:54 unknown) Dose: 1 tab (unknown) (no (unknown) (unknown) Last Admin: (units (un known) date) 11/19/21 13:23 unknown) Dose: 2.5 mg (unknown) (no (unknown) (unknown) Last Admin: (units (un known) date) 11/19/21 13:53 unknown) Dose: 1 tab (unknown) (no (unknown) (unknown) Last Infusion: (units (unknown) date) 11/19/21 13:43 unknown) Dose: 0 mls/hr (unknown) (no (unknown) (unknown) MINUTES (units (unkno wn) date) unknown) (unknown) (no (unknown) (unknown) NAUSEA W/I (units (unk nown) date) unknown) (unknown) (no (unknown) (unknown) PRN Reason: (units (un known) date) Shortness Of Breath unknown) (unknown) (no (unknown) (unknown) Previous Rx's (units ( unknown) date) unknown) (unknown) (no (unknown) (unknown) Rx Instructions: (units (unknown) date) unknown) (unknown) (no (unknown) (unknown) Spouse Milana called (unit s (unknown) date) + reported patient unknown) not taking it regularly. (unknown) (no (unknown) (unknown) Stop: 11/19/21 (units (unknown) date) 12:37 unknown) (unknown) (no (unknown) (unknown) Stop: 11/19/21 (units (unknown) date) 12:40 unknown) (unknown) (no (unknown) (unknown) Stop: 11/19/21 (units (unknown) date) 12:42 unknown) (unknown) (no (unknown) (unknown) Stop: 11/19/21 (units (unknown) date) 13:08 unknown) (unknown) (no (unknown) (unknown) Stop: 11/19/21 (units (unknown) date) 13:16 unknown) (unknown) (no (unknown) (unknown) Stop: 11/19/21 (units (unknown) date) 13:23 unknown) (unknown) (no (unknown) (unknown) Stop: 11/19/21 (units (unknown) date) 13:56 unknown) (unknown) (no (unknown) (unknown) Vital Signs - 8 hr (units (unknown) date) unknown) (unknown) (no (unknown) (unknown) W/EXTENDED (units (unk nown) date) unknown) (unknown) (no (unknown) (unknown) [ ] New medication (units (unknown) date) written as a paper unknown) prescription (unknown) (no (unknown) (unknown) [ ] No new (units (unk nown) date) medications given unknown) (unknown) (no (unknown) (unknown) [x ] New medication (unit s (unknown) date) prescriptions sent unknown) to your pharmacy: [ [facility] (unknown) (no (unknown) (unknown) apply to single (units (unknown) date) elbow, wrist or unknown) hand; for hand includes palm/fingers/back of (unknown) (no (unknown) (unknown) patient states (units (unknown) date) weaning off. unknown) (unknown) (no (unknown) (unknown) take 1 tablet by (units (unknown) date) mouth once daily unknown) (unknown) (no (unknown) (unknown) take 1 tablet by (units (unknown) date) mouth twice a day unknown) (unknown) (no (unknown) (unknown) (no value) (units (unk nown) date) unknown) (unknown) (no (unknown) (unknown) 11/19/21 11/19/21 (units (unknown) date) 11/19/21 Range/Units unknown) (unknown) (no (unknown) (unknown) 10:56 11:30 11:30 (units (unknown) date) unknown) (unknown) (no (unknown) (unknown) 11:30 11:30 14:10 (units (unknown) date) unknown) (unknown) (no (unknown) (unknown) Zyrtec 10 mg (units (u nknown) date) Capsule unknown) (unknown) (no (unknown) (unknown) acetaminophen (units ( unknown) date) [Athenol] 325 mg unknown) tablet (unknown) (no (unknown) (unknown) acetaminophen-codei (unit s (unknown) date) ne 300-30 mg tablet unknown) (unknown) (no (unknown) (unknown) amoxicillin-pot (units (unknown) date) clavulanate 875-125 unknown) mg tablet (unknown) (no (unknown) (unknown) benzonatate (units (un known) date) [Tessalon Perles] unknown) 100 mg capsule (unknown) (no (unknown) (unknown) cefdinir 300 mg (units (unknown) date) capsule unknown) (unknown) (no (unknown) (unknown) diclofenac sodium 1 (unit s (unknown) date) % gel unknown) (unknown) (no (unknown) (unknown) ferrous sulfate 325 (unit s (unknown) date) mg (65 mg iron) unknown) tablet,delayed release (DR/EC) (unknown) (no (unknown) (unknown) fluticasone (units (un known) date) propionate 16 GM unknown) spray,suspension (unknown) (no (unknown) (unknown) furosemide [Lasix] (units (unknown) date) 40 mg tablet unknown) (unknown) (no (unknown) (unknown) glipizide (units (unkn own) date) [Glucotrol XL] 2.5 unknown) mg tablet extended release 24 hr (unknown) (no (unknown) (unknown) levalbuterol HCl (units (unknown) date) 1.25 mg/3 mL unknown) solution for nebulization (unknown) (no (unknown) (unknown) levalbuterol (units (u nknown) date) tartrate [Xopenex unknown) HFA] 45 mcg/actuation HFA aerosol inhaler (unknown) (no (unknown) (unknown) meclizine 25 mg (units (unknown) date) tablet unknown) (unknown) (no (unknown) (unknown) methocarbamol 500 (units (unknown) date) mg tablet unknown) (unknown) (no (unknown) (unknown) metoprolol tartrate (unit s (unknown) date) 100 mg tablet unknown) (unknown) (no (unknown) (unknown) multivitamin (units (u nknown) date) [Multiple Vitamins] unknown) 1 EACH tablet (unknown) (no (unknown) (unknown) oxycodone 5 mg (units (unknown) date) Tablet unknown) (unknown) (no (unknown) (unknown) oxycodone-acetamino (unit s (unknown) date) phen [Percocet] unknown) 5-325 mg tablet (unknown) (no (unknown) (unknown) prednisone 50 mg (units (unknown) date) tablet unknown) (unknown) (no (unknown) (unknown) trazodone 100 mg (units (unknown) date) tablet unknown) (unknown) (no (unknown) (unknown) 11/19/21 (units (unkno wn) date) unknown) (unknown) (no (unknown) (unknown) Bronchiectasis (units (unknown) date) type: with acute unknown) exacerbation Qualified Code(s): J47.1 - (unknown) (no (unknown) (unknown) COPD exacerbation (units (unknown) date) unknown) (unknown) (no (unknown) (unknown) Medication (units (unk nown) date) Instructions unknown) Recorded (unknown) (no (unknown) (unknown) Medication (units (unk nown) date) Instructions unknown) Recorded Confirmed (unknown) (no (unknown) (unknown) acute ischemic (units (unknown) date) changes. unknown) (unknown) (no (unknown) (unknown) did not have any (units (unknown) date) tachycardia, unknown) weakness, altered mentation, fever. No other (unknown) (no (unknown) (unknown) morning and night, (units (unknown) date) levalbuterol, unknown) Zyrtec, Benadryl, Singulair, stool softeners, (unknown) (no (unknown) (unknown) presume is (units (unk nown) date) bronchiectasis with unknown) exacerbation of his COPD. Patient had his (unknown) (no (unknown) (unknown) densitometrist, wish (unit s (unknown) date) you the best. unknown) (unknown) (no (unknown) (unknown) (Athenol) (units (unkn own) date) unknown) (unknown) (no (unknown) (unknown) (Tessalon Perles) (units (unknown) date) unknown) (unknown) (no (unknown) (unknown) (Xopenex HFA) (units ( unknown) date) unknown) (unknown) (no (unknown) (unknown) *If you do not have (unit s (unknown) date) a primary care unknown) provider please contact [phone] to (unknown) (no (unknown) (unknown) *Please follow up (units (unknown) date) with your primary unknown) care provider in 2-3 days, call for an (unknown) (no (unknown) (unknown) *Return to (units (unk nown) date) Emergency Department unknown) if you should have any new, worsening or (unknown) (no (unknown) (unknown) *What to do: (units (u nknown) date) unknown) (unknown) (no (unknown) (unknown) *You have been (units (unknown) date) diagnosed with unknown) bronchiectasis and a COPD exacerbation. Please (unknown) (no (unknown) (unknown) [phone] (units (unkn own) date) unknown) (unknown) (no (unknown) (unknown) 11/19/21 10:56 (units (unknown) date) unknown) (unknown) (no (unknown) (unknown) 11/19/21 10:57 (units (unknown) date) unknown) (unknown) (no (unknown) (unknown) 11/19/21 11:30 (units (unknown) date) unknown) (unknown) (no (unknown) (unknown) 11/19/21 12:36 (units (unknown) date) unknown) (unknown) (no (unknown) (unknown) 11/19/21 13:29 (units (unknown) date) unknown) (unknown) (no (unknown) (unknown) 0RF (units (unkno wn) date) unknown) (unknown) (no (unknown) (unknown) 10:50 11/19/21 (units (unknown) date) unknown) (unknown) (no (unknown) (unknown) 11:20 11/19/21 (units (unknown) date) unknown) (unknown) (no (unknown) (unknown) 11:22 (units (unkno wn) date) unknown) (unknown) (no (unknown) (unknown) 11:30 11/19/21 (units (unknown) date) unknown) (unknown) (no (unknown) (unknown) 12:00 11/19/21 (units (unknown) date) unknown) (unknown) (no (unknown) (unknown) 12:02 (units (unkno wn) date) unknown) (unknown) (no (unknown) (unknown) 12:30 11/19/21 (units (unknown) date) unknown) (unknown) (no (unknown) (unknown) 12:42 11/19/21 (units (unknown) date) unknown) (unknown) (no (unknown) (unknown) 13:00 (units (unkno wn) date) unknown) (unknown) (no (unknown) (unknown) 13:23 11/19/21 (units (unknown) date) unknown) (unknown) (no (unknown) (unknown) 13:30 11/19/21 (units (unknown) date) unknown) (unknown) (no (unknown) (unknown) 13:38 (units (unkno wn) date) unknown) (unknown) (no (unknown) (unknown) 13:55 11/19/21 (units (unknown) date) unknown) (unknown) (no (unknown) (unknown) 14:09 11/19/21 (units (unknown) date) unknown) (unknown) (no (unknown) (unknown) 14:30 (units (unkno wn) date) unknown) (unknown) (no (unknown) (unknown) 76-year-old male (units (unknown) date) former smoker with unknown) history of COPD and hypertension, AFib, (unknown) (no (unknown) (unknown) ? (units (unkno wn) date) unknown) (unknown) (no (unknown) (unknown) ALT (<50) IU/L (unit s (unknown) date) unknown) (unknown) (no (unknown) (unknown) ALT 26 (<50) (units (unknown) date) IU/L unknown) (unknown) (no (unknown) (unknown) ANTIBIOTICS)] (units ( unknown) date) unknown) (unknown) (no (unknown) (unknown) AST (17-59) (units (unknown) date) IU/L unknown) (unknown) (no (unknown) (unknown) AST 31 (17-59) (units (unknown) date) IU/L unknown) (unknown) (no (unknown) (unknown) Achalasia (units (unkn own) date) unknown) (unknown) (no (unknown) (unknown) Activity (units (unkno wn) date) Restrictions/Additio unknown) nal Instructions: (unknown) (no (unknown) (unknown) Age/Sex: 76 / M (units (unknown) date) unknown) (unknown) (no (unknown) (unknown) Albumin (units (unkno wn) date) (3.5-5.0) g/dL unknown) (unknown) (no (unknown) (unknown) Albumin 4.6 (units (unknown) date) (3.5-5.0) g/dL unknown) (unknown) (no (unknown) (unknown) Albumin/Globulin (units (unknown) date) Ratio (1.0-2.8) unknown) (unknown) (no (unknown) (unknown) Albumin/Globulin (units (unknown) date) Ratio 1.5 unknown) (1.0-2.8) (unknown) (no (unknown) (unknown) Albuterol (units (unkn own) date) (Albuterol 2.5 Mg/3 unknown) Ml Neb (Adult)) 2.5 mg INH NOW ONE (unknown) (no (unknown) (unknown) Albuterol (units (unkn own) date) (Albuterol 2.5 Mg/3 unknown) Ml Neb (Adult)) 2.5 mg INH Q20M BLOSSOM (unknown) (no (unknown) (unknown) Albuterol/Ipratropi (unit s (unknown) date) um unknown) (Albuterol/Ipratropi um 3 Ml Ampul) 3 ml INH Q1H PRN (unknown) (no (unknown) (unknown) Alkaline (units (unkno wn) date) Phosphatase unknown) (38-126) U/L (unknown) (no (unknown) (unknown) Alkaline (units (unkno wn) date) Phosphatase 61 unknown) (38-126) U/L (unknown) (no (unknown) (unknown) Allergy/AdvReac (units (unknown) date) Type Severity unknown) Reaction Status Date / Time (unknown) (no (unknown) (unknown) Amoxicillin/Clavula (unit s (unknown) date) marah Potassium unknown) (Amoxicillin/Clav 875/125 Mg) 1 tab PO NOW (unknown) (no (unknown) (unknown) Anginal pain (units (u nknown) date) unknown) (unknown) (no (unknown) (unknown) Antibiotics) (units (u nknown) date) unknown) (unknown) (no (unknown) (unknown) Approved by: (units (u nknown) date) Andre Spear unknownRui Horton on 11/19/2021 at 11:56 ? (unknown) (no (unknown) (unknown) Asthma (units (unkno wn) date) unknown) (unknown) (no (unknown) (unknown) Atrial fibrillation (unit s (unknown) date) unknown) (unknown) (no (unknown) (unknown) BUN (9-20) (units (unknown) date) mg/dL unknown) (unknown) (no (unknown) (unknown) BUN 13 (9-20) (units (unknown) date) mg/dL unknown) (unknown) (no (unknown) (unknown) BUN/Creatinine (units (unknown) date) Ratio (6-22) unknown) (unknown) (no (unknown) (unknown) BUN/Creatinine (units (unknown) date) Ratio 16.7 unknown) (6-22) (unknown) (no (unknown) (unknown) Baso # (Auto) (units ( unknown) date) (0-100) /uL unknown) (unknown) (no (unknown) (unknown) Baso # (Auto) 100 (unit s (unknown) date) (0-100) /uL unknown) (unknown) (no (unknown) (unknown) Baso % (Auto) (units ( unknown) date) (0-2) % unknown) (unknown) (no (unknown) (unknown) Baso % (Auto) 1.1 (unit s (unknown) date) (0-2) % unknown) (unknown) (no (unknown) (unknown) Benadryl, (units (unkn own) date) Singulair, unknown) levalbuterol, nebulizers, and Percocet for his low back (unknown) (no (unknown) (unknown) Blood Pressure (units (unknown) date) unknown) (unknown) (no (unknown) (unknown) Blood Pressure (units (unknown) date) 150/74 H unknown) (unknown) (no (unknown) (unknown) Blood Pressure (units (unknown) date) 212/88 H unknown) (unknown) (no (unknown) (unknown) Blood Pressure (units (unknown) date) 185/89 H 04/ unknown) 10:50 (unknown) (no (unknown) (unknown) Blood Pressure (units (unknown) date) 185/89 H 158/88 H unknown) (unknown) (no (unknown) (unknown) Blood Pressure (units (unknown) date) 212/93 H 183/76 H unknown) (unknown) (no (unknown) (unknown) Bones and chest (units (unknown) date) wall:? No suspicious unknown) bony abnormalities.? Soft tissues appear (unknown) (no (unknown) (unknown) Bronchiectasis (units (unknown) date) unknown) (unknown) (no (unknown) (unknown) Bronchiectasis with (unit s (unknown) date) (acute) exacerbation unknown) (unknown) (no (unknown) (unknown) CABG, and (units (unkn own) date) unknown) (unknown) (no (unknown) (unknown) CABG, pneumonia 1 (units (unknown) date) month ago, who is unknown) not on anticoagulants who presents at the (unknown) (no (unknown) (unknown) [facility], CR, XR unknown) CHEST 1V, 10/07/2021, 21:56. (unknown) (no (unknown) (unknown) COPD (chronic (units ( unknown) date) obstructive unknown) pulmonary disease) (unknown) (no (unknown) (unknown) COVID19 -N[place]al (units (unknown) date) RAPID/Pre-Proc Stat unknown) (unknown) (no (unknown) (unknown) Calcium (units (unkno wn) date) (8.4-10.2) mg/dL unknown) (unknown) (no (unknown) (unknown) Calcium 8.5 (units (unknown) date) (8.4-10.2) mg/dL unknown) (unknown) (no (unknown) (unknown) Carbon Dioxide (units (unknown) date) (22-32) mmol/L unknown) (unknown) (no (unknown) (unknown) Carbon Dioxide (units (unknown) date) 25 (22-32) mmol/L unknown) (unknown) (no (unknown) (unknown) Cardio: denies (units (unknown) date) chest pain, unknown) palpitations, edema (unknown) (no (unknown) (unknown) Cardiovascular: (units (unknown) date) regular rate and unknown) rhythm, no peripheral edema, warm extremities (unknown) (no (unknown) (unknown) Cervical spinal (units (unknown) date) stenosis unknown) (unknown) (no (unknown) (unknown) Chest x-ray: (units (u ) date) unknown) (unknown) (no (unknown) (unknown) Chief Complaint: (units (unknown) date) Shortness of unknown) Breath/Dyspnea (unknown) (no (unknown) (unknown) Chloride (units (o wn) date) (98-107) mmol/L unknown) (unknown) (no (unknown) (unknown) Chloride 103 (units (unknown) date) (98-107) mmol/L unknown) (unknown) (no (unknown) (unknown) Chronic obstructive (unit s (unknown) date) pulmonary disease unknown) (10/22/16) (unknown) (no (unknown) (unknown) Clinical (units (o wn) date) Impression: unknown) (unknown) (no (unknown) (unknown) Complete Blood (units (unknown) date) Count AUTO DIFF Stat unknown) (unknown) (no (unknown) (unknown) Comprehensive (units ( unknown) date) Metabolic Panel Stat unknown) (unknown) (no (unknown) (unknown) Consult to (units () date) Respiratory Therapy unknown) Evaluate + Treat (unknown) (no (unknown) (unknown) Coronary artery (units (unknown) date) disease unknown) (unknown) (no (unknown) (unknown) Course (units (o wn) date) unknown) (unknown) (no (unknown) (unknown) Creatinine (units (unk nown) date) (0.66-1.25) mg/dL unknown) (unknown) (no (unknown) (unknown) Creatinine 0.78 (units (unknown) date) (0.66-1.25) mg/dL unknown) (unknown) (no (unknown) (unknown) : 1945 (units (unknown) date) Acct:[id number] unknown) (unknown) (no (unknown) (unknown) Kimmy Gomez MD (units (unknown) date) [Primary Care unknown) Provider] - (unknown) (no (unknown) (unknown) Departure (units (unkn own) date) unknown) (unknown) (no (unknown) (unknown) Dictated by: (units (u nknown) date) Andre Spear unknownRui Horton on 11/19/2021 at 11:55 ? ? (unknown) (no (unknown) (unknown) Discharge Plan (units (unknown) date) unknown) (unknown) (no (unknown) (unknown) Discontinued (units (u nknown) date) Medications unknown) (unknown) (no (unknown) (unknown) ECG Data (units (unkno wn) date) unknown) (unknown) (no (unknown) (unknown) EKG reviewed by (units (unknown) date) myself and unknown) Justine reveals normal sinus rhythm at [84] bpm (unknown) (no (unknown) (unknown) EKG-12 Lead Routine (unit s (unknown) date) unknown) (unknown) (no (unknown) (unknown) EKG-12 Lead Stat (units (unknown) date) unknown) (unknown) (no (unknown) (unknown) ER Physician: (units ( unknown) date) Frida Pruitt unknown) (unknown) (no (unknown) (unknown) Eos # (Auto) (units (u nknown) date) (0-450) /uL unknown) (unknown) (no (unknown) (unknown) Eos # (Auto) 400 (units (unknown) date) (0-450) /uL unknown) (unknown) (no (unknown) (unknown) Eos % (Auto) (units (u nknown) date) (2-4) % unknown) (unknown) (no (unknown) (unknown) Eos % (Auto) 7.6 (units (unknown) date) H (2-4) % unknown) (unknown) (no (unknown) (unknown) Estimated GFR (units ( unknown) date) (>60) mL/min unknown) (unknown) (no (unknown) (unknown) Estimated GFR > (units (unknown) date) 60 (>60) mL/min unknown) (unknown) (no (unknown) (unknown) Exam (units (unkno wn) date) unknown) (unknown) (no (unknown) (unknown) Exam Narrative: (units (unknown) date) unknown) (unknown) (no (unknown) (unknown) Eyes: denies visual (unit s (unknown) date) changes, eye pain unknown) (unknown) (no (unknown) (unknown) Eyes: pupils equal (units (unknown) date) round and reactive, unknown) EOMI, conjunctiva normal (unknown) (no (unknown) (unknown) FINDINGS:? (units (unk nown) date) unknown) (unknown) (no (unknown) (unknown) Family History (units (unknown) date) (Reviewed 11/19/21 @ unknown) 13:21 by Frida Pruitt [facility]) (unknown) (no (unknown) (unknown) GI: abdomen soft, (units (unknown) date) nontender to unknown) palpation, nondistended, no masses, no exquisite (unknown) (no (unknown) (unknown) GI: denies (units (unk nown) date) abdominal pain, unknown) nausea, vomiting, or diarrhea (unknown) (no (unknown) (unknown) : denies dysuria, (unit s (unknown) date) hematuria, urinary unknown) retention, frequency or incontinence (unknown) (no (unknown) (unknown) General (units (unkno wn) date) unknown) (unknown) (no (unknown) (unknown) General: (units (unkno wn) date) cooperative, unknown) comfortable, in no acute distress, well developed and well (unknown) (no (unknown) (unknown) General: denies (units (unknown) date) fever, chills, unknown) malaise, sweats, fatigue (unknown) (no (unknown) (unknown) GenericComposite[Pl (unit s (unknown) date) t Count unknown) (150-400) X10^3/uL ] (unknown) (no (unknown) (unknown) GenericComposite[Pl (unit s (unknown) date) t Count 207 unknown) (150-400) X10^3/uL ] (unknown) (no (unknown) (unknown) GenericComposite[RB (unit s (unknown) date) C (4.5-5.9) unknown) X10^6/uL ] (unknown) (no (unknown) (unknown) GenericComposite[RB (unit s (unknown) date) C 4.60 (4.5-5.9) unknown) X10^6/uL ] (unknown) (no (unknown) (unknown) GenericComposite[WB (unit s (unknown) date) C (4.5-11.0) unknown) X10^3/uL ] (unknown) (no (unknown) (unknown) GenericComposite[WB (unit s (unknown) date) C 5.3 (4.5-11.0) unknown) X10^3/uL ] (unknown) (no (unknown) (unknown) Globulin (units (unkno wn) date) (1.7-4.1) g/dL unknown) (unknown) (no (unknown) (unknown) Globulin 3.1 (units (unknown) date) (1.7-4.1) g/dL unknown) (unknown) (no (unknown) (unknown) Glucose (units (unkno wn) date) (80-110) mg/dL unknown) (unknown) (no (unknown) (unknown) Glucose 201 H (units (unknown) date) (80-110) mg/dL unknown) (unknown) (no (unknown) (unknown) H/O arthroscopic (units (unknown) date) knee surgery unknown) (11/14/17) (unknown) (no (unknown) (unknown) HPI - SOB/Dyspnea (units (unknown) date) unknown) (unknown) (no (unknown) (unknown) HPI Narrative: (units (unknown) date) unknown) (unknown) (no (unknown) (unknown) Hct (41-53) % (units (unknown) date) unknown) (unknown) (no (unknown) (unknown) Hct 43.2 (units (unk nown) date) (41-53) % unknown) (unknown) (no (unknown) (unknown) Head/Neck: denies (units (unknown) date) headache, neck pain, unknown) dizziness (unknown) (no (unknown) (unknown) Head: atraumatic, (units (unknown) date) symmetrical facial unknown) expressions (unknown) (no (unknown) (unknown) Hgb (13.5-17.5) (unit s (unknown) date) g/dL unknown) (unknown) (no (unknown) (unknown) Hgb 14.4 (units (unk nown) date) (13.5-17.5) g/dL unknown) (unknown) (no (unknown) (unknown) History of Present (units (unknown) date) Illness unknown) (unknown) (no (unknown) (unknown) History of aortic (units (unknown) date) dissection unknown) () (unknown) (no (unknown) (unknown) History of (units (unk nown) date) arthroplasty of unknown) right knee (unknown) (no (unknown) (unknown) 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 (unknown) (no (unknown) (unknown) History of cardiac (units (unknown) date) cath () unknown) (unknown) (no (unknown) (unknown) History of (units (unk nown) date) esophageal surgery unknown) (unknown) (no (unknown) (unknown) History of incision (unit s (unknown) date) and drainage () unknown) (unknown) (no (unknown) (unknown) History of prior (units (unknown) date) ablation treatment unknown) () (unknown) (no (unknown) (unknown) History of surgery (units (unknown) date) unknown) (unknown) (no (unknown) (unknown) Hx of (units (unkno wn) date) cholecystectomy unknown) (unknown) (no (unknown) (unknown) Hx of hernia repair (unit s (unknown) date) unknown) (unknown) (no (unknown) (unknown) Hx of sinus surgery (unit s (unknown) date) unknown) (unknown) (no (unknown) (unknown) Hydromorphone HCl (units (unknown) date) (Hydromorphone 0.5 unknown) Mg Inj) 0.5 mg IV NOW ONE (unknown) (no (unknown) (unknown) Hypertension (units (u nknown) date) unknown) (unknown) (no (unknown) (unknown) IMPRESSION:? No (units (unknown) date) acute unknown) cardiopulmonary abnormality. (unknown) (no (unknown) (unknown) INDICATIONS:? (units ( unknown) date) shortness of breath unknown) (unknown) (no (unknown) (unknown) INHIBITOR] (units (unk nown) date) unknown) (unknown) (no (unknown) (unknown) Imaging Data (units (u nknown) date) unknown) (unknown) (no (unknown) (unknown) Independently (units ( unknown) date) reviewed vitals unknown) signs and nursing notes. (unknown) (no (unknown) (unknown) Inhibitor MUSCLES (unit s (unknown) date) unknown) (unknown) (no (unknown) (unknown) Initial Vital Signs (unit s (unknown) date) unknown) (unknown) (no (unknown) (unknown) Initial Vital (units ( unknown) date) Signs: unknown) (unknown) (no (unknown) (unknown) Interpretation: (units (unknown) date) unknown) (unknown) (no (unknown) (unknown) Ischemic (units (unkno wn) date) cardiomyopathy unknown) (unknown) (no (unknown) (unknown) Lab Data (units (unkno wn) date) unknown) (unknown) (no (unknown) (unknown) Labs: (units (unkno wn) date) unknown) (unknown) (no (unknown) (unknown) Lactate (units (unkno wn) date) (0.7-2.1) mmol/L unknown) (unknown) (no (unknown) (unknown) Lactate 3.7 H (units (unknown) date) 1.8 (0.7-2.1) unknown) mmol/L (unknown) (no (unknown) (unknown) Lactate (Lactic (units (unknown) date) Acid) Stat unknown) (unknown) (no (unknown) (unknown) Limitations: no (units (unknown) date) limitations unknown) (unknown) (no (unknown) (unknown) Lungs and pleura:? (units (unknown) date) Coarsened unknown) interstitial markings.? No consolidation, pleural (unknown) (no (unknown) (unknown) Lymph # (Auto) (units (unknown) date) (7236-2244) /uL unknown) (unknown) (no (unknown) (unknown) Lymph # (Auto) (units (unknown) date) 1100 (6142-4726) unknown) /uL (unknown) (no (unknown) (unknown) Lymph % (Auto) (units (unknown) date) (25-40) % unknown) (unknown) (no (unknown) (unknown) Lymph % (Auto) (units (unknown) date) 19.9 L (25-40) % unknown) (unknown) (no (unknown) (unknown) MCH (26-34) PG (unit s (unknown) date) unknown) (unknown) (no (unknown) (unknown) MCH 31.4 (units (unk nown) date) (26-34) PG unknown) (unknown) (no (unknown) (unknown) MCHC (30-36) % (unit s (unknown) date) unknown) (unknown) (no (unknown) (unknown) MCHC 33.4 (units (un known) date) (30-36) % unknown) (unknown) (no (unknown) (unknown) MCV (80-100) (units (unknown) date) fL unknown) (unknown) (no (unknown) (unknown) MCV 93.9 (units (unk nown) date) (80-100) fL unknown) (unknown) (no (unknown) (unknown) MDM - SOB/Dyspnea (units (unknown) date) unknown) (unknown) (no (unknown) (unknown) MDM Narrative (units ( unknown) date) unknown) (unknown) (no (unknown) (unknown) MSK: denies joint (units (unknown) date) pain, muscle unknown) weakness, endorses low back pain at baseline (unknown) (no (unknown) (unknown) MSK: moves all (units ( unknown) date) extremities, unknown) ambulatory w/steady gait, neurovascularly intact, no (unknown) (no (unknown) (unknown) Magnesium (units (unkn own) date) (1.6-2.3) mg/dL unknown) (unknown) (no (unknown) (unknown) Magnesium 1.8 (units (unknown) date) (1.6-2.3) mg/dL unknown) (unknown) (no (unknown) (unknown) Magnesium Stat (units (unknown) date) unknown) (unknown) (no (unknown) (unknown) Measure peak (units (u nknown) date) expiratory flow ONCE unknown) (unknown) (no (unknown) (unknown) Mediastinum:? (units ( unknown) date) Mediastinal contours unknown) are normal.? Heart size is normal.? (unknown) (no (unknown) (unknown) Medical History (units (unknown) date) (Reviewed 11/19/21 @ unknown) 13:21 by Frida Pruitt [facility]) (unknown) (no (unknown) (unknown) Medical decision (units (unknown) date) making narrative: unknown) (unknown) (no (unknown) (unknown) Medrol, and a (units ( unknown) date) prescription of unknown) Augmentin b.i.d. for the next 7 days. His (unknown) (no (unknown) (unknown) Methylprednisolone (units (unknown) date) (Methylprednisolone unknown) 125 Mg/2 Ml Vial) 125 mg IV NOW ONE (unknown) (no (unknown) (unknown) Mode of arrival: (units (unknown) date) Wheelchair unknown) (unknown) (no (unknown) (unknown) [place] # (Auto) (units ( unknown) date) (0-900) /uL unknown) (unknown) (no (unknown) (unknown) [place] # (Auto) 400 (unit s (unknown) date) (0-900) /uL unknown) (unknown) (no (unknown) (unknown) [place] % (Auto) (units ( unknown) date) (3-14) % unknown) (unknown) (no (unknown) (unknown) [place] % (Auto) 7.9 (unit s (unknown) date) (3-14) % unknown) (unknown) (no (unknown) (unknown) Mother (units (unknown) date) Stroke unknown) (unknown) (no (unknown) (unknown) Mouth/Throat: uvula (unit s (unknown) date) midline, moist mucus unknown) membranes (unknown) (no (unknown) (unknown) Narcotic dependence (unit s (unknown) date) unknown) (unknown) (no (unknown) (unknown) Narrative (units (unkn own) date) unknown) (unknown) (no (unknown) (unknown) Narrative: (units (unk nown) date) unknown) (unknown) (no (unknown) (unknown) Neck pain, chronic (units (unknown) date) unknown) (unknown) (no (unknown) (unknown) Neck: supple, (units ( unknown) date) atraumatic, without unknown) lymphadenopathy. (unknown) (no (unknown) (unknown) Neuro: denies (units ( unknown) date) numbness, tingling unknown) (unknown) (no (unknown) (unknown) Neuro: normal (units ( unknown) date) speech and unknown) cognition, A+O x3, normal tone (unknown) (no (unknown) (unknown) Neut # (Auto) (units ( unknown) date) (2833-5546) /uL unknown) (unknown) (no (unknown) (unknown) Neut # (Auto) (units ( unknown) date) 3400 (8867-4062) unknown) /uL (unknown) (no (unknown) (unknown) Neut % (Auto) (units ( unknown) date) (50-75) % unknown) (unknown) (no (unknown) (unknown) Neut % (Auto) (units ( unknown) date) 63.5 (50-75) % unknown) (unknown) (no (unknown) (unknown) New (units (unkno wn) date) unknown) (unknown) (no (unknown) (unknown) No Action (units (unkn own) date) unknown) (unknown) (no (unknown) (unknown) Nose: nares patent, (unit s (unknown) date) no rhinorrhea unknown) (unknown) (no (unknown) (unknown) ONE (units (unkno wn) date) unknown) (unknown) (no (unknown) (unknown) [place]] (units (un known) date) unknown) (unknown) (no (unknown) (unknown) Ordered: (units (unkno wn) date) unknown) (unknown) (no (unknown) (unknown) Orders (units (unkno wn) date) unknown) (unknown) (no (unknown) (unknown) Oxycodone/Acetaminop (unit s (unknown) date) hen unknown) (Oxycodone/Acetamino phen 5/325 Tablet) 1 tab PO NOW ONE (unknown) (no (unknown) (unknown) PROCEDURE:? XR (units (unknown) date) CHEST 2V unknown) (unknown) (no (unknown) (unknown) Patient (units (unkno wn) date) Disposition: Home unknown) (unknown) (no (unknown) (unknown) Patient History (units (unknown) date) unknown) (unknown) (no (unknown) (unknown) Patient has a (units ( unknown) date) history of allergic unknown) rhinitis, currently using Flonase, Zyrtec, (unknown) (no (unknown) (unknown) Patient states at (units (unknown) date) home and has been unknown) taking all of his medications at as (unknown) (no (unknown) (unknown) Patient understands (unit s (unknown) date) plan and agrees to unknown) discharge home. All questions and (unknown) (no (unknown) (unknown) Patient was given (units (unknown) date) strict return unknown) precautions. EKG did not have any STEMI, no ST (unknown) (no (unknown) (unknown) Patient: (units (unkno wn) date) Dominic Viveros Gisele unknown) MR#: M (unknown) (no (unknown) (unknown) Percocet, and (units ( unknown) date) diclofenac gel, and unknown) muscle relaxers for all of your symptoms. (unknown) (no (unknown) (unknown) Please continue (units (unknown) date) doing what you are unknown) doing, stay hydrated, thank you for trusting (unknown) (no (unknown) (unknown) Potassium (units (unkn own) date) (3.4-5.1) mmol/L unknown) (unknown) (no (unknown) (unknown) Potassium 4.1 (units (unknown) date) (3.4-5.1) mmol/L unknown) (unknown) (no (unknown) (unknown) Prescriptions: (units (unknown) date) unknown) (unknown) (no (unknown) (unknown) Psych: mental (units ( unknown) date) status is grossly unknown) normal, congruent mood, normal affect, pleasant (unknown) (no (unknown) (unknown) Pulse Oximetry 95 (units (unknown) date) 11/19/21 10:50 unknown) (unknown) (no (unknown) (unknown) Pulse Oximetry 93 (units (unknown) date) 93 94 unknown) (unknown) (no (unknown) (unknown) Pulse Oximetry 94 (units (unknown) date) 91 91 unknown) (unknown) (no (unknown) (unknown) Pulse Oximetry 94 (units (unknown) date) 92 unknown) (unknown) (no (unknown) (unknown) Pulse Oximetry 95 (units (unknown) date) 92 94 unknown) (unknown) (no (unknown) (unknown) Pulse Oximetry 95 (units (unknown) date) 93 93 unknown) (unknown) (no (unknown) (unknown) Pulse Rate 69 81 (units (unknown) date) unknown) (unknown) (no (unknown) (unknown) Pulse Rate 75 78 (units (unknown) date) unknown) (unknown) (no (unknown) (unknown) Pulse Rate 83 (units (unknown) date) 11/19/21 10:50 unknown) (unknown) (no (unknown) (unknown) Pulse Rate 81 81 80 (unit s (unknown) date) unknown) (unknown) (no (unknown) (unknown) Pulse Rate 83 96 H (units (unknown) date) 92 H unknown) (unknown) (no (unknown) (unknown) Pulse Rate 86 91 H (units (unknown) date) 84 unknown) (unknown) (no (unknown) (unknown) Qualifiers: (units (un known) date) unknown) (unknown) (no (unknown) (unknown) RDW (11.6-14.8) (unit s (unknown) date) % unknown) (unknown) (no (unknown) (unknown) RDW 13.5 (units (unk nown) date) (11.6-14.8) % unknown) (unknown) (no (unknown) (unknown) RT Consult Eval and (unit s (unknown) date) Treat Now unknown) (unknown) (no (unknown) (unknown) Referrals: (units (unk nown) date) unknown) (unknown) (no (unknown) (unknown) Related Data (units (u nknown) date) unknown) (unknown) (no (unknown) (unknown) Vincent Galvan MD (units (unknown) date) [Non-Staff] - unknown) (unknown) (no (unknown) (unknown) Respiratory Rate (units (unknown) date) 18 unknown) (unknown) (no (unknown) (unknown) Respiratory Rate (units (unknown) date) 21 20 unknown) (unknown) (no (unknown) (unknown) Respiratory Rate (units (unknown) date) 22 11/19/21 10:50 unknown) (unknown) (no (unknown) (unknown) Respiratory Rate 21 (unit s (unknown) date) 23 21 unknown) (unknown) (no (unknown) (unknown) Respiratory Rate 22 (unit s (unknown) date) unknown) (unknown) (no (unknown) (unknown) Respiratory Rate 25 (unit s (unknown) date) H 32 H unknown) (unknown) (no (unknown) (unknown) Respiratory: (units (u nknown) date) Endorses dyspnea, unknown) +cough, increased sinus drainage, productive (unknown) (no (unknown) (unknown) Respiratory: normal (unit s (unknown) date) effort, able to unknown) speak in complete sentences, no audible (unknown) (no (unknown) (unknown) Result diagrams: (units (unknown) date) unknown) (unknown) (no (unknown) (unknown) Review of Systems (units (unknown) date) unknown) (unknown) (no (unknown) (unknown) S/P CABG x 3 (units (u nknown) date) () unknown) (unknown) (no (unknown) (unknown) S/P cervical spinal (unit s (unknown) date) fusion unknown) (unknown) (no (unknown) (unknown) S/P lumbar fusion (units (unknown) date) unknown) (unknown) (no (unknown) (unknown) SARS-CoV-2 (PCR) (units (unknown) date) (Negative) unknown) (unknown) (no (unknown) (unknown) SARS-CoV-2 (PCR) (units (unknown) date) Negative unknown) (Negative) (unknown) (no (unknown) (unknown) Signed By: (units (unk nown) date) unknown) (unknown) (no (unknown) (unknown) Skin: brisk (units (un known) date) capillary refill, no unknown) rash, no erythema (unknown) (no (unknown) (unknown) Skin: denies rash, (units (unknown) date) itching, skin unknown) lesions or other (unknown) (no (unknown) (unknown) Smoking Status: (units (unknown) date) Former smoker unknown) (unknown) (no (unknown) (unknown) Smoking Status: (units (unknown) date) Former smoker unknown) (unknown) (no (unknown) (unknown) Social History (units (unknown) date) (Reviewed 11/19/21 @ unknown) 13:21 by [facility]) (unknown) (no (unknown) (unknown) Sodium (units (unkno wn) date) (137-145) mmol/L unknown) (unknown) (no (unknown) (unknown) Sodium 140 (units ( unknown) date) (137-145) mmol/L unknown) (unknown) (no (unknown) (unknown) Sodium Chloride (units (unknown) date) (Normal Saline 0.9%) unknown) 500 mls @ 1,000 mls/hr IV BOLUS ONE (unknown) (no (unknown) (unknown) Source: patient and (unit s (unknown) date) family unknown) (unknown) (no (unknown) (unknown) Stated Complaint: (units (unknown) date) STATES unknown) PNEUMONIA-PHYSICAIN REFERRED (unknown) (no (unknown) (unknown) Duelizl-[id number] (units (unknown) date) Reductase AdvReac unknown) Mild WEAK Verified 04/16/21 12:13 (unknown) (no (unknown) (unknown) Substance Use Type: (unit s (unknown) date) does not use unknown) (unknown) (no (unknown) (unknown) Sulfa (Sulfonamide (units (unknown) date) Allergy Mild RASH unknown) Verified 04/16/21 12:13 (unknown) (no (unknown) (unknown) Surgical History (units (unknown) date) (Reviewed 11/19/21 @ unknown) 13:21 by [facility]) (unknown) (no (unknown) (unknown) Surgical changes (units (unknown) date) and devices:? unknown) Redemonstrated sternotomy wires, evidence of (unknown) (no (unknown) (unknown) TECHNIQUE:? 2 views (unit s (unknown) date) of the chest were unknown) acquired.? (unknown) (no (unknown) (unknown) Temperature (units (un known) date) unknown) (unknown) (no (unknown) (unknown) Temperature 97.8 F (unit s (unknown) date) 11/19/21 10:50 unknown) (unknown) (no (unknown) (unknown) Temperature 97.8 F (units (unknown) date) unknown) (unknown) (no (unknown) (unknown) Dominic Gonzalez (units (unknown) date) MD [place] unknown) [Physician] - (unknown) (no (unknown) (unknown) Time Seen by (units (u nknown) date) Provider: 11/19/21 unknown) 12:02 (unknown) (no (unknown) (unknown) To the emergency (units (unknown) date) department with unknown) history of COPD, seasonal allergies, and what I (unknown) (no (unknown) (unknown) Total Bilirubin (units (unknown) date) (0.2-1.3) mg/dL unknown) (unknown) (no (unknown) (unknown) Total Bilirubin (units (unknown) date) 0.5 (0.2-1.3) unknown) mg/dL (unknown) (no (unknown) (unknown) Total Protein (units ( unknown) date) (6.3-8.2) g/dL unknown) (unknown) (no (unknown) (unknown) Total Protein (units ( unknown) date) 7.7 (6.3-8.2) g/dL unknown) (unknown) (no (unknown) (unknown) Ventricular (units (un known) date) bigeminy unknown) (unknown) (no (unknown) (unknown) Vital Signs (units (un known) date) unknown) (unknown) (no (unknown) (unknown) Vital signs: (units (u nknown) date) unknown) (unknown) (no (unknown) (unknown) XR chest 2V Stat (units (unknown) date) unknown) (unknown) (no (unknown) (unknown) [Embedded Image Not (unit s (unknown) date) Available] unknown) (unknown) (no (unknown) (unknown) [[id number] (units (unknown) date) REDUCTASE unknown) (unknown) (no (unknown) (unknown) [SULFA (SULFONAMIDE (unit s (unknown) date) unknown) (unknown) (no (unknown) (unknown) acetaminophen 300 (units (unknown) date) mg-codeine 30 mg 1 unknown) tab PO Q6HR PRN 10/08/21 10/08/21 (unknown) (no (unknown) (unknown) acetaminophen 325 (units (unknown) date) mg tablet 650 mg PO unknown) Q6H PRN #60 tab 11/06/20 (unknown) (no (unknown) (unknown) alcohol intake (units (unknown) date) frequency: unknown) holidays/special occasions only (unknown) (no (unknown) (unknown) alcohol intake: (units (unknown) date) current unknown) (unknown) (no (unknown) (unknown) allergies. He (units (unknown) date) endorses lot of unknown) sinus congestion, and yearly issues with a (unknown) (no (unknown) (unknown) amenable to (units (un known) date) discharge home. unknown) Vital signs are stable on repeat examination is (unknown) (no (unknown) (unknown) amoxicillin 875 (units (unknown) date) mg-potassium 1 tab unknown) PO BID 7 Days #14 tab 11/19/21 (unknown) (no (unknown) (unknown) and cooperative (units (unknown) date) unknown) (unknown) (no (unknown) (unknown) appointment. Let (units (unknown) date) them know you were unknown) seen in the Emergency Department and that we (unknown) (no (unknown) (unknown) asked that you be (units (unknown) date) seen for follow-up. unknown) We will electronically transmit a record (unknown) (no (unknown) (unknown) back pain, asking (units (unknown) date) for some unknown) breakthrough opioid medicine to help with this. (unknown) (no (unknown) (unknown) benzonatate 100 mg (units (unknown) date) capsule 100 mg PO unknown) TID PRN #14 cap 03/05/21 (unknown) (no (unknown) (unknown) buprenorphine (units ( unknown) date) [BUPRENORPHINE] unknown) AdvReac Mild NAUSEA, Verified 04/16/21 12:13 (unknown) (no (unknown) (unknown) care provider. (units (unknown) date) Patient did not have unknown) any hypoxia or respiratory distress. (unknown) (no (unknown) (unknown) cefdinir 300 mg (units (unknown) date) capsule 300 mg PO unknown) BID #20 cap 10/09/21 (unknown) (no (unknown) (unknown) celecoxib (units (unkn own) date) [CELECOXIB] Allergy unknown) Mild SWELLING Verified 04/16/21 12:13 (unknown) (no (unknown) (unknown) cervical spine (units (unknown) date) hardware.? unknown) (unknown) (no (unknown) (unknown) cetirizine 10 mg (units (unknown) date) capsule (Zyrtec) 10 unknown) mg PO DAILY 05/22/19 10/08/21 (unknown) (no (unknown) (unknown) changes, normal (units (unknown) date) sinus rhythm 84 unknown) beats per minute. Patient is appropriate and (unknown) (no (unknown) (unknown) clavulanate 125 mg (units (unknown) date) tablet unknown) (unknown) (no (unknown) (unknown) complaining of low (units (unknown) date) back pain unknown) exacerbation. Lab work was significant for an (unknown) (no (unknown) (unknown) concerning (units (unk nown) date) symptoms, such as unknown) [fever greater than 101F, chills, worsening pain, (unknown) (no (unknown) (unknown) concerns answered (units (unknown) date) at this time. unknown) (unknown) (no (unknown) (unknown) continue doing all (units (unknown) date) of the things were unknown) doing for your allergies including Flonase (unknown) (no (unknown) (unknown) cough, denies any (units (unknown) date) shortness of breath unknown) with exertion or orthopnea (unknown) (no (unknown) (unknown) diazepam [From (units (unknown) date) Valium] AdvReac unknown) Confusion Verified 04/16/21 12:13 (unknown) (no (unknown) (unknown) diclofenac sodium 1 (unit s (unknown) date) % topical gel 2 g unknown) TOPICAL QID #100 g 11/19/21 (unknown) (no (unknown) (unknown) distress, has been (units (unknown) date) afebrile, without unknown) signs of sepsis, without tachycardia or (unknown) (no (unknown) (unknown) effusions (units (unkn own) date) unknown) (unknown) (no (unknown) (unknown) elevated lactate (units (unknown) date) without leukocytosis unknown) or left shift, lactate was 3.7, he was (unknown) (no (unknown) (unknown) establish care with [facility]unit s (unknown) [facility]. (unknown) (no (unknown) (unknown) ferrous sulfate 325 (unit s (unknown) date) mg (65 mg 325 mg PO unknown) DAILY 10/19/19 10/08/21 (unknown) (no (unknown) (unknown) fluticasone (units (un known) date) propionate 50 1 unknown) spray INTRANASAL DAILY PRN #0 11/02/17 10/08/21 (unknown) (no (unknown) (unknown) followed by an (units (unknown) date) albuterol neb for unknown) ongoing extra Alyssa wheezes but he improved (unknown) (no (unknown) (unknown) furosemide 40 mg (units (unknown) date) tablet (Lasix) 40 mg unknown) PO DAILY 10/08/21 10/08/21 (unknown) (no (unknown) (unknown) gain.? He denies (units (unknown) date) nausea, vomiting or unknown) diarrhea. Patient is complaining was low (unknown) (no (unknown) (unknown) given 500 mL of (units (unknown) date) normal saline for unknown) dehydration, recheck lactate was 1.8. Patient (unknown) (no (unknown) (unknown) glipizide 2.5 mg (units (unknown) date) tablet, extended 2.5 unknown) mg PO DAILY 10/08/21 10/08/21 (unknown) (no (unknown) (unknown) greatly after the (units (unknown) date) 1st and even more so unknown) after the 2nd. He was not in any (unknown) (no (unknown) (unknown) groomed (units (unkno wn) date) unknown) (unknown) (no (unknown) (unknown) hand (units (unkno wn) date) unknown) (unknown) (no (unknown) (unknown) helped and (units (unk nown) date) steroids. His unknown) densitometrist is Dr. Galvan (unknown) (no (unknown) (unknown) his allergic (units (u nknown) date) rhinitis unknown) medications, follow-up with his densitometrist and primary (unknown) (no (unknown) (unknown) household members: (units (unknown) date) spouse unknown) (unknown) (no (unknown) (unknown) hyoscyamine (units (un known) date) [HYOSCYAMINE] unknown) AdvReac Mild LEG Verified 04/16/21 12:13 (unknown) (no (unknown) (unknown) hypertension and (units (unknown) date) was hypertensive unknown) during his stay, he did receive 1 DuoNeb, (unknown) (no (unknown) (unknown) hypotension. Chest (unit s (unknown) date) x-ray does not show unknown) any acute cardiopulmonary abnormality. (unknown) (no (unknown) (unknown) iron) (units (unkno wn) date) tablet,delayed unknown) release (unknown) (no (unknown) (unknown) latex [LATEX] (units ( unknown) date) Allergy Mild RASH unknown) Verified 04/16/21 12:13 (unknown) (no (unknown) (unknown) levalbuterol HCl (units (unknown) date) 1.25 mg/3 mL 3 ml unknown) INHALATION Q6H PRN 10/16/18 10/08/21 (unknown) (no (unknown) (unknown) levalbuterol (units (u nknown) date) tartrate 45 1 puff unknown) INHALATION Q4-6H PRN #15 06/22/18 (unknown) (no (unknown) (unknown) lightheaded.? He (units (unknown) date) denies any unknown) exertional component, medication change or weight (unknown) (no (unknown) (unknown) low back pain which (unit s (unknown) date) is also worse with unknown) coughing. He is not dizzy nor weak or (unknown) (no (unknown) (unknown) mcg/actuation (units ( unknown) date) aerosol inhaler gram unknown) (unknown) (no (unknown) (unknown) mcg/actuation nasal (unit s (unknown) date) unknown) (unknown) (no (unknown) (unknown) meclizine 25 mg (units (unknown) date) tablet 25 mg PO QID unknown) PRN #30 tab 10/09/21 (unknown) (no (unknown) (unknown) methocarbamol 500 (units (unknown) date) mg tablet 500 mg PO unknown) Q8H PRN #14 tab 11/19/21 (unknown) (no (unknown) (unknown) metoprolol tartrate (unit s (unknown) date) 100 mg tablet 100 mg unknown) PO BID 10/16/18 10/08/21 (unknown) (no (unknown) (unknown) mg tablet (units (unkn own) date) (Percocet) unknown) (unknown) (no (unknown) (unknown) multivitamin (units (u nknown) date) (Multiple Vitamins) unknown) 1 tab PO DAILY #0 12/20/16 10/08/21 (unknown) (no (unknown) (unknown) nebs as often as (units (unknown) date) you need them. I unknown) have called in Augmentin, prednisone, (unknown) (no (unknown) (unknown) of today's note if (units (unknown) date) your PCP is in our unknown) system (unknown) (no (unknown) (unknown) or pneumothorax.? (units (unknown) date) unknown) (unknown) (no (unknown) (unknown) oxycodone 5 mg (units (unknown) date) tablet 10 mg PO unknown) Q4-5H PRN #60 tab 11/06/20 (unknown) (no (unknown) (unknown) oxycodone-acetamino (unit s (unknown) date) phen 5 mg-325 1 tab unknown) PO Q8H PRN #10 tab 11/19/21 (unknown) (no (unknown) (unknown) oxycodone-acetamino (unit s (unknown) date) phen 5 mg-325 1 tab unknown) PO TID PRN #10 tab 11/19/21 (unknown) (no (unknown) (unknown) pain. He endorses (units (unknown) date) that he takes unknown) Dulcolax to prevent constipation. He is also (unknown) (no (unknown) (unknown) persistent vomiting (unit s (unknown) date) or other bothersome unknown) symptoms] (unknown) (no (unknown) (unknown) prednisone 50 mg (units (unknown) date) tablet 50 mg PO unknown) DAILY #5 tab 11/19/21 (unknown) (no (unknown) (unknown) prednisone 50 mg (units (unknown) date) tablet 50 mg PO unknown) DAILY 5 Days tab 11/19/21 (unknown) (no (unknown) (unknown) prescribed (units (unk nown) date) including Flonase, unknown) levalbuterol, Zyrtec, Benadryl, singular for his (unknown) (no (unknown) (unknown) productive cough (units (unknown) date) this time of year. unknown) He has had no fever or chills but states (unknown) (no (unknown) (unknown) densitometrist is (units (unknown) date) Dr. Maribeth palmer. unknown) Recommend humidifier, sinus rinses, continuing (unknown) (no (unknown) (unknown) release 24 hr (units ( unknown) date) (Glucotrol XL) unknown) (unknown) (no (unknown) (unknown) request of his (units (unknown) date) primary care unknown) provider for 3 days of increased upper respiratory (unknown) (no (unknown) (unknown) respiratory (units (un known) date) distress, main unknown) complaint was fatigue. He was given 125 mg of Solu- (unknown) (no (unknown) (unknown) return extra Alyssa (units (unknown) date) wheezes throughout unknown) all lung cruz, was not in any acute (unknown) (no (unknown) (unknown) significant (units (un known) date) findings on his lab unknown) work today. Patient has a history of (unknown) (no (unknown) (unknown) solution for (units (u nknown) date) nebulization unknown) (unknown) (no (unknown) (unknown) spray,suspension (units (unknown) date) unknown) (unknown) (no (unknown) (unknown) strict return to ER (unit s (unknown) date) precautions for any unknown) new or worsening symptoms. Patient (unknown) (no (unknown) (unknown) stridor, or rales. (units (unknown) date) No retractions or unknown) tachypnea. Inspiratory and expiratory (unknown) (no (unknown) (unknown) substance use type: (unit s (unknown) date) does not use unknown) (unknown) (no (unknown) (unknown) symptoms. Patient (units (unknown) date) states that he has unknown) received Augmentin in the past which has (unknown) (no (unknown) (unknown) tablet (units (unkno wn) date) unknown) (unknown) (no (unknown) (unknown) tenderness with (units (unknown) date) exam, without unknown) guarding or rebound. (unknown) (no (unknown) (unknown) that he is more (units (unknown) date) tired than usual, unknown) has a frontal headache due to coughing ongoing (unknown) (no (unknown) (unknown) trazodone 100 mg (units (unknown) date) tablet 400 tab PO unknown) BEDTIME 12/09/17 10/08/21 (unknown) (no (unknown) (unknown) understands to (units (unknown) date) follow up closely unknown) with outpatient providers as instructed. (unknown) (no (unknown) (unknown) unremarkable. (units ( unknown) date) Patient has been unknown) informed of results. Patient has been given (unknown) (no (unknown) (unknown) unremarkable.? (units (unknown) date) unknown) (unknown) (no (unknown) (unknown) us with your care, I (unit s (unknown) date) hope that you feel unknown) better soon. Please follow-up with your (unknown) (no (unknown) (unknown) varenicline (units (un known) date) [VARENICLINE] unknown) AdvReac Severe Paranoia Verified 04/16/21 12:13 (unknown) (no (unknown) (unknown) weakness (units (unkno wn) date) unknown) (unknown) (no (unknown) (unknown) wheezes throughout (units (unknown) date) all cruz, no unknown) crackles, rales, or absent sounds. (unknown) (no (unknown) (unknown) wheezing, shortness (unit s (unknown) date) of breath, cough and unknown) congestion due to his seasonal (unknown) (no (unknown) (unknown) with rightward axis (units (unknown) date) and intervals. No unknown) STEMI, ST segment changes, arrhythmia, or Result panel 10 (unknown) (no (unknown) (unknown) (no value) (units (unk nown) date) unknown) (unknown) (no (unknown) (unknown) Radiologist's (units ( unknown) date) Impression: unknown) (unknown) (no (unknown) (unknown) *Please continue to (unit s (unknown) date) take your regular unknown) medications as directed. (unknown) (no (unknown) (unknown) Date of Service: (units (unknown) date) 11/19/21 unknown) (unknown) (no (unknown) (unknown) (no value) (units (unk nown) date) unknown) (unknown) (no (unknown) (unknown) <Electronically (units (unknown) date) signed by Bridgett unknownRui Fletcher D.O.> (unknown) (no (unknown) (unknown) <Electronically (units (unknown) date) signed by Frida Wolfe unknown) [facility]> (unknown) (no (unknown) (unknown) 11/19/21 11:30 (units (unknown) date) unknown) (unknown) (no (unknown) (unknown) 11/19/21 1522 (units ( unknown) date) unknown) (unknown) (no (unknown) (unknown) 11/19/21 2046 (units ( unknown) date) unknown) (unknown) (no (unknown) (unknown) 1 puff INHALATION (units (unknown) date) Q4-6H PRN (Reason: unknown) shortness of breath or wheezing) Qty: 15 (unknown) (no (unknown) (unknown) 1 spray Intranasal (units (unknown) date) DAILY PRN (Reason: unknown) Allergy Symptoms) Qty: 0 0RF (unknown) (no (unknown) (unknown) 1 tab PO BID 7 Days (unit s (unknown) date) Qty: 14 0RF unknown) (unknown) (no (unknown) (unknown) 1 tab PO DAILY Qty: (unit s (unknown) date) 0 0RF unknown) (unknown) (no (unknown) (unknown) 1 tab PO Q6HR PRN (units (unknown) date) (Reason: Back Pain) unknown) 0RF (unknown) (no (unknown) (unknown) 1 tab PO Q8H PRN (units (unknown) date) (Reason: pain) Qty: unknown) 10 0RF (unknown) (no (unknown) (unknown) 1 tab PO TID PRN (units (unknown) date) (Reason: pain) Qty: unknown) 10 0RF (unknown) (no (unknown) (unknown) 10 mg PO DAILY 0RF (units (unknown) date) unknown) (unknown) (no (unknown) (unknown) 10 mg PO Q4-5H PRN (units (unknown) date) (Reason: Pain, unknown) Severe (7-10)) Qty: 60 0RF (unknown) (no (unknown) (unknown) 100 mg PO BID 0RF (units (unknown) date) unknown) (unknown) (no (unknown) (unknown) 100 mg PO TID PRN (units (unknown) date) (Reason: cough) Qty: unknown) 14 0RF (unknown) (no (unknown) (unknown) 2 g topical QID (units (unknown) date) Qty: 100 0RF unknown) (unknown) (no (unknown) (unknown) 2.5 mg PO DAILY 0RF (unit s (unknown) date) unknown) (unknown) (no (unknown) (unknown) 25 mg PO QID PRN (units (unknown) date) (Reason: vertigo) unknown) Qty: 30 0RF (unknown) (no (unknown) (unknown) 3 ml Inhalation Q6H (unit s (unknown) date) PRN (Reason: unknown) Shortness Of Breath) 0RF (unknown) (no (unknown) (unknown) 300 mg PO BID Qty: (units (unknown) date) 20 0RF unknown) (unknown) (no (unknown) (unknown) 325 mg PO DAILY 0RF (unit s (unknown) date) unknown) (unknown) (no (unknown) (unknown) 40 mg PO DAILY 0RF (units (unknown) date) unknown) (unknown) (no (unknown) (unknown) 400 tab PO BEDTIME (units (unknown) date) 0RF unknown) (unknown) (no (unknown) (unknown) 50 mg PO DAILY 5 (units (unknown) date) Days 0RF unknown) (unknown) (no (unknown) (unknown) 50 mg PO DAILY Qty: (unit s (unknown) date) 5 0RF unknown) (unknown) (no (unknown) (unknown) 500 mg PO Q8H PRN (units (unknown) date) (Reason: muscle unknown) spasm) Qty: 14 0RF (unknown) (no (unknown) (unknown) 650 mg PO Q6H PRN (units (unknown) date) (Reason: pain) Qty: unknown) 60 0RF (unknown) (no (unknown) (unknown) ANXIETY, (units (unkno wn) date) unknown) (unknown) (no (unknown) (unknown) Admin: 11/19/21 (units (unknown) date) 12:53 Dose: 1,000 unknown) mls/hr (unknown) (no (unknown) (unknown) Allergies (units (unkn own) date) unknown) (unknown) (no (unknown) (unknown) DIZZINESS (units (unkn own) date) unknown) (unknown) (no (unknown) (unknown) Documented by: (units (unknown) date) ATAYLOR unknown) (unknown) (no (unknown) (unknown) Documented by: (units (unknown) date) JFREELA unknown) (unknown) (no (unknown) (unknown) Documented by: (units (unknown) date) SHELLEYGLAR unknown) (unknown) (no (unknown) (unknown) ED Orders (units (unkn own) date) unknown) (unknown) (no (unknown) (unknown) EXPOSURE (units (unkno wn) date) unknown) (unknown) (no (unknown) (unknown) Emergency Report (units (unknown) date) unknown) (unknown) (no (unknown) (unknown) Home Medications (units (unknown) date) unknown) (unknown) (no (unknown) (unknown) INHALE 1 VIAL PER (units (unknown) date) NEBULIZER EVERY 6 unknown) HOURS NEEDED (unknown) (no (unknown) (unknown) [facility] (units (unknown) date) [address] [place] [address] unknown) [place] [address] (unknown) (no (unknown) (unknown) JERKING, (units (unkno wn) date) unknown) (unknown) (no (unknown) (unknown) Lab Results (units (un known) date) unknown) (unknown) (no (unknown) (unknown) Label Comments: (units (unknown) date) unknown) (unknown) (no (unknown) (unknown) Last Admin: (units (un known) date) 11/19/21 12:42 unknown) Dose: 3 ml (unknown) (no (unknown) (unknown) Last Admin: (units (un known) date) 11/19/21 12:53 unknown) Dose: 125 mg (unknown) (no (unknown) (unknown) Last Admin: (units (un known) date) 11/19/21 12:54 unknown) Dose: 0.5 mg (unknown) (no (unknown) (unknown) Last Admin: (units (un known) date) 11/19/21 12:54 unknown) Dose: 1 tab (unknown) (no (unknown) (unknown) Last Admin: (units (un known) date) 11/19/21 13:23 unknown) Dose: 2.5 mg (unknown) (no (unknown) (unknown) Last Admin: (units (un known) date) 11/19/21 13:53 unknown) Dose: 1 tab (unknown) (no (unknown) (unknown) Last Infusion: (units (unknown) date) 11/19/21 13:43 unknown) Dose: 0 mls/hr (unknown) (no (unknown) (unknown) MINUTES (units (unkno wn) date) unknown) (unknown) (no (unknown) (unknown) NAUSEA W/I (units (unk nown) date) unknown) (unknown) (no (unknown) (unknown) PRN Reason: (units (un known) date) Shortness Of Breath unknown) (unknown) (no (unknown) (unknown) Previous Rx's (units ( unknown) date) unknown) (unknown) (no (unknown) (unknown) Rx Instructions: (units (unknown) date) unknown) (unknown) (no (unknown) (unknown) Spouse Milana called (unit s (unknown) date) + reported patient unknown) not taking it regularly. (unknown) (no (unknown) (unknown) Stop: 11/19/21 (units (unknown) date) 12:37 unknown) (unknown) (no (unknown) (unknown) Stop: 11/19/21 (units (unknown) date) 12:40 unknown) (unknown) (no (unknown) (unknown) Stop: 11/19/21 (units (unknown) date) 12:42 unknown) (unknown) (no (unknown) (unknown) Stop: 11/19/21 (units (unknown) date) 13:08 unknown) (unknown) (no (unknown) (unknown) Stop: 11/19/21 (units (unknown) date) 13:16 unknown) (unknown) (no (unknown) (unknown) Stop: 11/19/21 (units (unknown) date) 13:23 unknown) (unknown) (no (unknown) (unknown) Stop: 11/19/21 (units (unknown) date) 13:56 unknown) (unknown) (no (unknown) (unknown) Vital Signs - 8 hr (units (unknown) date) unknown) (unknown) (no (unknown) (unknown) W/EXTENDED (units (unk nown) date) unknown) (unknown) (no (unknown) (unknown) [ ] New medication (units (unknown) date) written as a paper unknown) prescription (unknown) (no (unknown) (unknown) [ ] No new (units (unk nown) date) medications given unknown) (unknown) (no (unknown) (unknown) [x ] New medication (unit s (unknown) date) prescriptions sent unknown) to your pharmacy: [ [facility] (unknown) (no (unknown) (unknown) apply to single (units (unknown) date) elbow, wrist or unknown) hand; for hand includes palm/fingers/back of (unknown) (no (unknown) (unknown) patient states (units (unknown) date) weaning off. unknown) (unknown) (no (unknown) (unknown) take 1 tablet by (units (unknown) date) mouth once daily unknown) (unknown) (no (unknown) (unknown) take 1 tablet by (units (unknown) date) mouth twice a day unknown) (unknown) (no (unknown) (unknown) (no value) (units (unk nown) date) unknown) (unknown) (no (unknown) (unknown) 11/19/21 11/19/21 (units (unknown) date) 11/19/21 Range/Units unknown) (unknown) (no (unknown) (unknown) 10:56 11:30 11:30 (units (unknown) date) unknown) (unknown) (no (unknown) (unknown) 11:30 11:30 14:10 (units (unknown) date) unknown) (unknown) (no (unknown) (unknown) Zyrtec 10 mg (units (u nknown) date) Capsule unknown) (unknown) (no (unknown) (unknown) acetaminophen (units ( unknown) date) [Athenol] 325 mg unknown) tablet (unknown) (no (unknown) (unknown) acetaminophen-codei (unit s (unknown) date) ne 300-30 mg tablet unknown) (unknown) (no (unknown) (unknown) amoxicillin-pot (units (unknown) date) clavulanate 875-125 unknown) mg tablet (unknown) (no (unknown) (unknown) benzonatate (units (un known) date) [Tessalon Perles] unknown) 100 mg capsule (unknown) (no (unknown) (unknown) cefdinir 300 mg (units (unknown) date) capsule unknown) (unknown) (no (unknown) (unknown) diclofenac sodium 1 (unit s (unknown) date) % gel unknown) (unknown) (no (unknown) (unknown) ferrous sulfate 325 (unit s (unknown) date) mg (65 mg iron) unknown) tablet,delayed release (DR/EC) (unknown) (no (unknown) (unknown) fluticasone (units (un known) date) propionate 16 GM unknown) spray,suspension (unknown) (no (unknown) (unknown) furosemide [Lasix] (units (unknown) date) 40 mg tablet unknown) (unknown) (no (unknown) (unknown) glipizide (units (unkn own) date) [Glucotrol XL] 2.5 unknown) mg tablet extended release 24 hr (unknown) (no (unknown) (unknown) levalbuterol HCl (units (unknown) date) 1.25 mg/3 mL unknown) solution for nebulization (unknown) (no (unknown) (unknown) levalbuterol (units (u nknown) date) tartrate [Xopenex unknown) HFA] 45 mcg/actuation HFA aerosol inhaler (unknown) (no (unknown) (unknown) meclizine 25 mg (units (unknown) date) tablet unknown) (unknown) (no (unknown) (unknown) methocarbamol 500 (units (unknown) date) mg tablet unknown) (unknown) (no (unknown) (unknown) metoprolol tartrate (unit s (unknown) date) 100 mg tablet unknown) (unknown) (no (unknown) (unknown) multivitamin (units (u nknown) date) [Multiple Vitamins] unknown) 1 EACH tablet (unknown) (no (unknown) (unknown) oxycodone 5 mg (units (unknown) date) Tablet unknown) (unknown) (no (unknown) (unknown) oxycodone-acetamino (unit s (unknown) date) phen [Percocet] unknown) 5-325 mg tablet (unknown) (no (unknown) (unknown) prednisone 50 mg (units (unknown) date) tablet unknown) (unknown) (no (unknown) (unknown) trazodone 100 mg (units (unknown) date) tablet unknown) (unknown) (no (unknown) (unknown) 11/19/21 (units (unkno wn) date) unknown) (unknown) (no (unknown) (unknown) Bronchiectasis (units (unknown) date) type: with acute unknown) exacerbation Qualified Code(s): J47.1 - (unknown) (no (unknown) (unknown) COPD exacerbation (units (unknown) date) unknown) (unknown) (no (unknown) (unknown) Medication (units (unk nown) date) Instructions unknown) Recorded (unknown) (no (unknown) (unknown) Medication (units (unk nown) date) Instructions unknown) Recorded Confirmed (unknown) (no (unknown) (unknown) acute ischemic (units (unknown) date) changes. unknown) (unknown) (no (unknown) (unknown) did not have any (units (unknown) date) tachycardia, unknown) weakness, altered mentation, fever. No other (unknown) (no (unknown) (unknown) morning and night, (units (unknown) date) levalbuterol, unknown) Zyrtec, Benadryl, Singulair, stool softeners, (unknown) (no (unknown) (unknown) presume is (units (unk nown) date) bronchiectasis with unknown) exacerbation of his COPD. Patient had his (unknown) (no (unknown) (unknown) densitometrist, wish (unit s (unknown) date) you the best. unknown) (unknown) (no (unknown) (unknown) <Bridgett Fletcher DO (unit s (unknown) date) - Last Filed: unknown) 11/19/21 20:46> (unknown) (no (unknown) (unknown) <Frida Pruitt, (units (unknown) date) [facility] - Last Filed: unknown) 11/19/21 15:22> (unknown) (no (unknown) (unknown) (Athenol) (units (unkn own) date) unknown) (unknown) (no (unknown) (unknown) (Tessalon Perles) (units (unknown) date) unknown) (unknown) (no (unknown) (unknown) (Xopenex HFA) (units ( unknown) date) unknown) (unknown) (no (unknown) (unknown) *If you do not have (unit s (unknown) date) a primary care unknown) provider please contact [phone] to (unknown) (no (unknown) (unknown) *Please follow up (units (unknown) date) with your primary unknown) care provider in 2-3 days, call for an (unknown) (no (unknown) (unknown) *Return to (units (unk nown) date) Emergency Department unknown) if you should have any new, worsening or (unknown) (no (unknown) (unknown) *What to do: (units (u nknown) date) unknown) (unknown) (no (unknown) (unknown) *You have been (units (unknown) date) diagnosed with unknown) bronchiectasis and a COPD exacerbation. Please (unknown) (no (unknown) (unknown) [phone] (units (unkn own) date) unknown) (unknown) (no (unknown) (unknown) 11/19/21 12:36 (units (unknown) date) unknown) (unknown) (no (unknown) (unknown) 11/19/21 13:29 (units (unknown) date) unknown) (unknown) (no (unknown) (unknown) 0RF (units (unkno wn) date) unknown) (unknown) (no (unknown) (unknown) 13:00 11/19/21 (units (unknown) date) unknown) (unknown) (no (unknown) (unknown) 13:23 11/19/21 (units (unknown) date) unknown) (unknown) (no (unknown) (unknown) 13:30 (units (unkno wn) date) unknown) (unknown) (no (unknown) (unknown) 13:38 11/19/21 (units (unknown) date) unknown) (unknown) (no (unknown) (unknown) 13:55 11/19/21 (units (unknown) date) unknown) (unknown) (no (unknown) (unknown) 14:09 (units (unkno wn) date) unknown) (unknown) (no (unknown) (unknown) 14:30 (units (unkno wn) date) unknown) (unknown) (no (unknown) (unknown) 76-year-old male (units (unknown) date) former smoker with unknown) history of COPD and hypertension, AFib, (unknown) (no (unknown) (unknown) ? (units (unkno wn) date) unknown) (unknown) (no (unknown) (unknown) ALT (<50) IU/L (unit s (unknown) date) unknown) (unknown) (no (unknown) (unknown) ALT 26 (<50) (units (unknown) date) IU/L unknown) (unknown) (no (unknown) (unknown) ANTIBIOTICS)] (units ( unknown) date) unknown) (unknown) (no (unknown) (unknown) AST (17-59) (units (unknown) date) IU/L unknown) (unknown) (no (unknown) (unknown) AST 31 (17-59) (units (unknown) date) IU/L unknown) (unknown) (no (unknown) (unknown) Achalasia (units (unkn own) date) unknown) (unknown) (no (unknown) (unknown) Activity (units (unkno wn) date) Restrictions/Additio unknown) nal Instructions: (unknown) (no (unknown) (unknown) Age/Sex: 76 / M (units (unknown) date) unknown) (unknown) (no (unknown) (unknown) Albumin (units (unkno wn) date) (3.5-5.0) g/dL unknown) (unknown) (no (unknown) (unknown) Albumin 4.6 (units (unknown) date) (3.5-5.0) g/dL unknown) (unknown) (no (unknown) (unknown) Albumin/Globulin (units (unknown) date) Ratio (1.0-2.8) unknown) (unknown) (no (unknown) (unknown) Albumin/Globulin (units (unknown) date) Ratio 1.5 unknown) (1.0-2.8) (unknown) (no (unknown) (unknown) Albuterol (units (unkn own) date) (Albuterol 2.5 Mg/3 unknown) Ml Neb (Adult)) 2.5 mg INH NOW ONE (unknown) (no (unknown) (unknown) Albuterol (units (unkn own) date) (Albuterol 2.5 Mg/3 unknown) Ml Neb (Adult)) 2.5 mg INH Q20M BLOSSOM (unknown) (no (unknown) (unknown) Albuterol/Ipratropi (unit s (unknown) date) um unknown) (Albuterol/Ipratropi um 3 Ml Ampul) 3 ml INH Q1H PRN (unknown) (no (unknown) (unknown) Alkaline (units (unkno wn) date) Phosphatase unknown) (38-126) U/L (unknown) (no (unknown) (unknown) Alkaline (units (unkno wn) date) Phosphatase 61 unknown) (38-126) U/L (unknown) (no (unknown) (unknown) Allergy/AdvReac (units (unknown) date) Type Severity unknown) Reaction Status Date / Time (unknown) (no (unknown) (unknown) Amoxicillin/Clavula (unit s (unknown) date) marah Potassium unknown) (Amoxicillin/Clav 875/125 Mg) 1 tab PO NOW (unknown) (no (unknown) (unknown) Anginal pain (units (u nknown) date) unknown) (unknown) (no (unknown) (unknown) Antibiotics) (units (u nknown) date) unknown) (unknown) (no (unknown) (unknown) Approved by: (units (u nknown) date) mohamud Morgan M.D. on 11/19/2021 at 11:56 ? (unknown) (no (unknown) (unknown) Asthma (units (unkno wn) date) unknown) (unknown) (no (unknown) (unknown) Atrial fibrillation (unit s (unknown) date) unknown) (unknown) (no (unknown) (unknown) BUN (9-20) (units (unknown) date) mg/dL unknown) (unknown) (no (unknown) (unknown) BUN 13 (9-20) (units (unknown) date) mg/dL unknown) (unknown) (no (unknown) (unknown) BUN/Creatinine (units (unknown) date) Ratio (6-22) unknown) (unknown) (no (unknown) (unknown) BUN/Creatinine (units (unknown) date) Ratio 16.7 unknown) (6-22) (unknown) (no (unknown) (unknown) Baso # (Auto) (units ( unknown) date) (0-100) /uL unknown) (unknown) (no (unknown) (unknown) Baso # (Auto) 100 (unit s (unknown) date) (0-100) /uL unknown) (unknown) (no (unknown) (unknown) Baso % (Auto) (units ( unknown) date) (0-2) % unknown) (unknown) (no (unknown) (unknown) Baso % (Auto) 1.1 (unit s (unknown) date) (0-2) % unknown) (unknown) (no (unknown) (unknown) Benadryl, (units (unkn own) date) Singulair, unknown) levalbuterol, nebulizers, and Percocet for his low back (unknown) (no (unknown) (unknown) Blood Pressure (units (unknown) date) unknown) (unknown) (no (unknown) (unknown) Blood Pressure (units (unknown) date) 185/89 H 11/19/21 unknown) 10:50 (unknown) (no (unknown) (unknown) Blood Pressure (units (unknown) date) 183/76 H unknown) (unknown) (no (unknown) (unknown) Blood Pressure (units (unknown) date) 212/88 H 212/93 H unknown) (unknown) (no (unknown) (unknown) Bones and chest (units (unknown) date) wall:? No suspicious unknown) bony abnormalities.? Soft tissues appear (unknown) (no (unknown) (unknown) Bronchiectasis (units (unknown) date) unknown) (unknown) (no (unknown) (unknown) Bronchiectasis with (unit s (unknown) date) (acute) exacerbation unknown) (unknown) (no (unknown) (unknown) Bronchitis (units (unk nown) date) unknown) (unknown) (no (unknown) (unknown) CABG, and (units (unkn own) date) unknown) (unknown) (no (unknown) (unknown) CABG, pneumonia 1 (units (unknown) date) month ago, who is unknown) not on anticoagulants who presents at the (unknown) (no (unknown) (unknown) [facility], [facility], XR unknown) CHEST 1V, 10/07/2021, 21:56. (unknown) (no (unknown) (unknown) COPD (chronic (units ( unknown) date) obstructive unknown) pulmonary disease) (unknown) (no (unknown) (unknown) Calcium (units (unkno wn) date) (8.4-10.2) mg/dL unknown) (unknown) (no (unknown) (unknown) Calcium 8.5 (units (unknown) date) (8.4-10.2) mg/dL unknown) (unknown) (no (unknown) (unknown) Carbon Dioxide (units (unknown) date) (22-32) mmol/L unknown) (unknown) (no (unknown) (unknown) Carbon Dioxide (units (unknown) date) 25 (22-32) mmol/L unknown) (unknown) (no (unknown) (unknown) Cardio: denies (units (unknown) date) chest pain, unknown) palpitations, edema (unknown) (no (unknown) (unknown) Cardiovascular: (units (unknown) date) regular rate and unknown) rhythm, no peripheral edema, warm extremities (unknown) (no (unknown) (unknown) Cervical spinal (units (unknown) date) stenosis unknown) (unknown) (no (unknown) (unknown) Chest x-ray: (units (u nknown) date) unknown) (unknown) (no (unknown) (unknown) Chief Complaint: (units (unknown) date) Shortness of unknown) Breath/Dyspnea (unknown) (no (unknown) (unknown) Chloride (units (unkno wn) date) (98-107) mmol/L unknown) (unknown) (no (unknown) (unknown) Chloride 103 (units (unknown) date) (98-107) mmol/L unknown) (unknown) (no (unknown) (unknown) Chronic obstructive (unit s (unknown) date) pulmonary disease unknown) (10/22/16) (unknown) (no (unknown) (unknown) Clinical (units (unkno wn) date) Impression: unknown) (unknown) (no (unknown) (unknown) Consult to (units (unk nown) date) Respiratory Therapy unknown) Evaluate + Treat (unknown) (no (unknown) (unknown) Coronary artery (units (unknown) date) disease unknown) (unknown) (no (unknown) (unknown) Cosign (units (unkno wn) date) unknown) (unknown) (no (unknown) (unknown) Course (units (unkno wn) date) unknown) (unknown) (no (unknown) (unknown) Creatinine (units (unk nown) date) (0.66-1.25) mg/dL unknown) (unknown) (no (unknown) (unknown) Creatinine 0.78 (units (unknown) date) (0.66-1.25) mg/dL unknown) (unknown) (no (unknown) (unknown) : 1945 (units (unknown) date) Acct:[id number] unknown) (unknown) (no (unknown) (unknown) Kimmy Gomez MD (units (unknown) date) [Primary Care unknown) Provider] - (unknown) (no (unknown) (unknown) Departure (units (unkn own) date) unknown) (unknown) (no (unknown) (unknown) Dictated by: (units (u ) date) Andre Spear unknownRui Horton on 11/19/2021 at 11:55 ? ? (unknown) (no (unknown) (unknown) Discharge Plan (units (unknown) date) unknown) (unknown) (no (unknown) (unknown) Discontinued (units (u nk) ) Medications unknown) (unknown) (no (unknown) (unknown) ECG Data (units (unkno wn) date) unknown) (unknown) (no (unknown) (unknown) ED Attending (units (u nknown) date) Cosignature unknown) Attestation: (unknown) (no (unknown) (unknown) EKG reviewed by (units (unknown) date) myself and unknown) Justine reveals normal sinus rhythm at [84] bpm (unknown) (no (unknown) (unknown) EKG-12 Lead Routine (unit s (unknown) date) unknown) (unknown) (no (unknown) (unknown) ER Physician: (units ( unknown) date) Frida Pruitt unknown) (unknown) (no (unknown) (unknown) Eos # (Auto) (units (u nknown) date) (0-450) /uL unknown) (unknown) (no (unknown) (unknown) Eos # (Auto) 400 (units (unknown) date) (0-450) /uL unknown) (unknown) (no (unknown) (unknown) Eos % (Auto) (units (u nknown) date) (2-4) % unknown) (unknown) (no (unknown) (unknown) Eos % (Auto) 7.6 (units (unknown) date) H (2-4) % unknown) (unknown) (no (unknown) (unknown) Estimated GFR (units ( unknown) date) (>60) mL/min unknown) (unknown) (no (unknown) (unknown) Estimated GFR > (units (unknown) date) 60 (>60) mL/min unknown) (unknown) (no (unknown) (unknown) Exam (units (unkno wn) date) unknown) (unknown) (no (unknown) (unknown) Exam Narrative: (units (unknown) date) unknown) (unknown) (no (unknown) (unknown) Eyes: denies visual (unit s (unknown) date) changes, eye pain unknown) (unknown) (no (unknown) (unknown) Eyes: pupils equal (units (unknown) date) round and reactive, unknown) EOMI, conjunctiva normal (unknown) (no (unknown) (unknown) FINDINGS:? (units (unk nown) date) unknown) (unknown) (no (unknown) (unknown) Family History (units (unknown) date) (Reviewed 11/19/21 @ unknown) 13:21 by [facility]) (unknown) (no (unknown) (unknown) GI: abdomen soft, (units (unknown) date) nontender to unknown) palpation, nondistended, no masses, no exquisite (unknown) (no (unknown) (unknown) GI: denies (units (unk nown) date) abdominal pain, unknown) nausea, vomiting, or diarrhea (unknown) (no (unknown) (unknown) : denies dysuria, (unit s (unknown) date) hematuria, urinary unknown) retention, frequency or incontinence (unknown) (no (unknown) (unknown) General (units (unkno wn) date) unknown) (unknown) (no (unknown) (unknown) General: (units (unkno wn) date) cooperative, unknown) comfortable, in no acute distress, well developed and well (unknown) (no (unknown) (unknown) General: denies (units (unknown) date) fever, chills, unknown) malaise, sweats, fatigue (unknown) (no (unknown) (unknown) GenericComposite[Pl (unit s (unknown) date) t Count unknown) (150-400) X10^3/uL ] (unknown) (no (unknown) (unknown) GenericComposite[Pl (unit s (unknown) date) t Count 207 unknown) (150-400) X10^3/uL ] (unknown) (no (unknown) (unknown) GenericComposite[RB (unit s (unknown) date) C (4.5-5.9) unknown) X10^6/uL ] (unknown) (no (unknown) (unknown) GenericComposite[RB (unit s (unknown) date) C 4.60 (4.5-5.9) unknown) X10^6/uL ] (unknown) (no (unknown) (unknown) GenericComposite[WB (unit s (unknown) date) C (4.5-11.0) unknown) X10^3/uL ] (unknown) (no (unknown) (unknown) GenericComposite[WB (unit s (unknown) date) C 5.3 (4.5-11.0) unknown) X10^3/uL ] (unknown) (no (unknown) (unknown) Globulin (units (unkno wn) date) (1.7-4.1) g/dL unknown) (unknown) (no (unknown) (unknown) Globulin 3.1 (units (unknown) date) (1.7-4.1) g/dL unknown) (unknown) (no (unknown) (unknown) Glucose (units (unkno wn) date) (80-110) mg/dL unknown) (unknown) (no (unknown) (unknown) Glucose 201 H (units (unknown) date) (80-110) mg/dL unknown) (unknown) (no (unknown) (unknown) H/O arthroscopic (units (unknown) date) knee surgery unknown) (11/14/17) (unknown) (no (unknown) (unknown) HPI - SOB/Dyspnea (units (unknown) date) unknown) (unknown) (no (unknown) (unknown) HPI Narrative: (units (unknown) date) unknown) (unknown) (no (unknown) (unknown) Hct (41-53) % (units (unknown) date) unknown) (unknown) (no (unknown) (unknown) Hct 43.2 (units (unk nown) date) (41-53) % unknown) (unknown) (no (unknown) (unknown) Head/Neck: denies (units (unknown) date) headache, neck pain, unknown) dizziness (unknown) (no (unknown) (unknown) Head: atraumatic, (units (unknown) date) symmetrical facial unknown) expressions (unknown) (no (unknown) (unknown) Hgb (13.5-17.5) (unit s (unknown) date) g/dL unknown) (unknown) (no (unknown) (unknown) Hgb 14.4 (units (unk nown) date) (13.5-17.5) g/dL unknown) (unknown) (no (unknown) (unknown) History of Present (units (unknown) date) Illness unknown) (unknown) (no (unknown) (unknown) History of aortic (units (unknown) date) dissection unknown) () (unknown) (no (unknown) (unknown) History of (units (unk nown) date) arthroplasty of unknown) right knee (unknown) (no (unknown) (unknown) 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 (unknown) (no (unknown) (unknown) History of cardiac (units (unknown) date) cath () unknown) (unknown) (no (unknown) (unknown) History of (units (unk nown) date) esophageal surgery unknown) (unknown) (no (unknown) (unknown) History of incision (unit s (unknown) date) and drainage (-2016) unknown) (unknown) (no (unknown) (unknown) History of prior (units (unknown) date) ablation treatment unknown) () (unknown) (no (unknown) (unknown) History of surgery (units (unknown) date) unknown) (unknown) (no (unknown) (unknown) Hx of (units (unkno wn) date) cholecystectomy unknown) (unknown) (no (unknown) (unknown) Hx of hernia repair (unit s (unknown) date) unknown) (unknown) (no (unknown) (unknown) Hx of sinus surgery (unit s (unknown) date) unknown) (unknown) (no (unknown) (unknown) Hydromorphone HCl (units (unknown) date) (Hydromorphone 0.5 unknown) Mg Inj) 0.5 mg IV NOW ONE (unknown) (no (unknown) (unknown) Hypertension (units (u nknown) date) unknown) (unknown) (no (unknown) (unknown) I was immediately (units (unknown) date) available in the unknown) department for consultation. Documentation (unknown) (no (unknown) (unknown) IMPRESSION:? No (units (unknown) date) acute unknown) cardiopulmonary abnormality. (unknown) (no (unknown) (unknown) INDICATIONS:? (units ( unknown) date) shortness of breath unknown) (unknown) (no (unknown) (unknown) INHIBITOR] (units (unk nown) date) unknown) (unknown) (no (unknown) (unknown) Imaging Data (units (u nknown) date) unknown) (unknown) (no (unknown) (unknown) Independently (units ( unknown) date) reviewed vitals unknown) signs and nursing notes. (unknown) (no (unknown) (unknown) Inhibitor MUSCLES (unit s (unknown) date) unknown) (unknown) (no (unknown) (unknown) Initial Vital Signs (unit s (unknown) date) unknown) (unknown) (no (unknown) (unknown) Initial Vital (units ( unknown) date) Signs: unknown) (unknown) (no (unknown) (unknown) Instructions: (units ( unknown) date) Pneumonia-Adult, unknown) Chronic Obstructive Pulmonary Disease, Chronic (unknown) (no (unknown) (unknown) Interpretation: (units (unknown) date) unknown) (unknown) (no (unknown) (unknown) Ischemic (units (unkno wn) date) cardiomyopathy unknown) (unknown) (no (unknown) (unknown) Lab Data (units (unkno wn) date) unknown) (unknown) (no (unknown) (unknown) Labs: (units (unkno wn) date) unknown) (unknown) (no (unknown) (unknown) Lactate (units (unkno wn) date) (0.7-2.1) mmol/L unknown) (unknown) (no (unknown) (unknown) Lactate 3.7 H (units (unknown) date) 1.8 (0.7-2.1) unknown) mmol/L (unknown) (no (unknown) (unknown) Limitations: no (units (unknown) date) limitations unknown) (unknown) (no (unknown) (unknown) Lungs and pleura:? (units (unknown) date) Coarsened unknown) interstitial markings.? No consolidation, pleural (unknown) (no (unknown) (unknown) Lymph # (Auto) (units (unknown) date) (2898-1402) /uL unknown) (unknown) (no (unknown) (unknown) Lymph # (Auto) (units (unknown) date) 1100 (4475-5241) unknown) /uL (unknown) (no (unknown) (unknown) Lymph % (Auto) (units (unknown) date) (25-40) % unknown) (unknown) (no (unknown) (unknown) Lymph % (Auto) (units (unknown) date) 19.9 L (25-40) % unknown) (unknown) (no (unknown) (unknown) MCH (26-34) PG (unit s (unknown) date) unknown) (unknown) (no (unknown) (unknown) MCH 31.4 (units (unk nown) date) (26-34) PG unknown) (unknown) (no (unknown) (unknown) MCHC (30-36) % (unit s (unknown) date) unknown) (unknown) (no (unknown) (unknown) MCHC 33.4 (units (un known) date) (30-36) % unknown) (unknown) (no (unknown) (unknown) MCV (80-100) (units (unknown) date) fL unknown) (unknown) (no (unknown) (unknown) MCV 93.9 (units (unk nown) date) (80-100) fL unknown) (unknown) (no (unknown) (unknown) MDM - SOB/Dyspnea (units (unknown) date) unknown) (unknown) (no (unknown) (unknown) MDM Narrative (units ( unknown) date) unknown) (unknown) (no (unknown) (unknown) MSK: denies joint (units (unknown) date) pain, muscle unknown) weakness, endorses low back pain at baseline (unknown) (no (unknown) (unknown) MSK: moves all (units ( unknown) date) extremities, unknown) ambulatory w/steady gait, neurovascularly intact, no (unknown) (no (unknown) (unknown) Magnesium (units (unkn own) date) (1.6-2.3) mg/dL unknown) (unknown) (no (unknown) (unknown) Magnesium 1.8 (units (unknown) date) (1.6-2.3) mg/dL unknown) (unknown) (no (unknown) (unknown) Mediastinum:? (units ( unknown) date) Mediastinal contours unknown) are normal.? Heart size is normal.? (unknown) (no (unknown) (unknown) Medical History (units (unknown) date) (Reviewed 11/19/21 @ unknown) 13:21 by Frida Pruitt [facility]) (unknown) (no (unknown) (unknown) Medical decision (units (unknown) date) making narrative: unknown) (unknown) (no (unknown) (unknown) Medrol, and a (units ( unknown) date) prescription of unknown) Augmentin b.i.d. for the next 7 days. His (unknown) (no (unknown) (unknown) Methylprednisolone (units (unknown) date) (Methylprednisolone unknown) 125 Mg/2 Ml Vial) 125 mg IV NOW ONE (unknown) (no (unknown) (unknown) Mode of arrival: (units (unknown) date) Wheelchair unknown) (unknown) (no (unknown) (unknown) [place] # (Auto) (units ( unknown) date) (0-900) /uL unknown) (unknown) (no (unknown) (unknown) [place] # (Auto) 400 (unit s (unknown) date) (0-900) /uL unknown) (unknown) (no (unknown) (unknown) [place] % (Auto) (units ( unknown) date) (3-14) % unknown) (unknown) (no (unknown) (unknown) [place] % (Auto) 7.9 (unit s (unknown) date) (3-14) % unknown) (unknown) (no (unknown) (unknown) Mother (units (unknown) date) Stroke unknown) (unknown) (no (unknown) (unknown) Mouth/Throat: uvula (unit s (unknown) date) midline, moist mucus unknown) membranes (unknown) (no (unknown) (unknown) Narcotic dependence (unit s (unknown) date) unknown) (unknown) (no (unknown) (unknown) Narrative (units (unkn own) date) unknown) (unknown) (no (unknown) (unknown) Narrative: (units (unk nown) date) unknown) (unknown) (no (unknown) (unknown) Neck pain, chronic (units (unknown) date) unknown) (unknown) (no (unknown) (unknown) Neck: supple, (units ( unknown) date) atraumatic, without unknown) lymphadenopathy. (unknown) (no (unknown) (unknown) Neuro: denies (units ( unknown) date) numbness, tingling unknown) (unknown) (no (unknown) (unknown) Neuro: normal (units ( unknown) date) speech and unknown) cognition, A+O x3, normal tone (unknown) (no (unknown) (unknown) Neut # (Auto) (units ( unknown) date) (7075-7025) /uL unknown) (unknown) (no (unknown) (unknown) Neut # (Auto) (units ( unknown) date) 3400 (8220-5792) unknown) /uL (unknown) (no (unknown) (unknown) Neut % (Auto) (units ( unknown) date) (50-75) % unknown) (unknown) (no (unknown) (unknown) Neut % (Auto) (units ( unknown) date) 63.5 (50-75) % unknown) (unknown) (no (unknown) (unknown) New (units (unkno wn) date) unknown) (unknown) (no (unknown) (unknown) No Action (units (unkn own) date) unknown) (unknown) (no (unknown) (unknown) Nose: nares patent, (unit s (unknown) date) no rhinorrhea unknown) (unknown) (no (unknown) (unknown) ONE (units (unkno wn) date) unknown) (unknown) (no (unknown) (unknown) [place]] (units (un known) date) unknown) (unknown) (no (unknown) (unknown) Ordered: (units (unkno wn) date) unknown) (unknown) (no (unknown) (unknown) Orders (units (unkno wn) date) unknown) (unknown) (no (unknown) (unknown) Oxycodone/Acetaminop (unit s (unknown) date) hen unknown) (Oxycodone/Acetamino phen 5/325 Tablet) 1 tab PO NOW ONE (unknown) (no (unknown) (unknown) PROCEDURE:? XR (units (unknown) date) CHEST 2V unknown) (unknown) (no (unknown) (unknown) Patient (units (unkno wn) date) Disposition: Home unknown) (unknown) (no (unknown) (unknown) Patient History (units (unknown) date) unknown) (unknown) (no (unknown) (unknown) Patient has a (units ( unknown) date) history of allergic unknown) rhinitis, currently using Flonase, Zyrtec, (unknown) (no (unknown) (unknown) Patient states at (units (unknown) date) home and has been unknown) taking all of his medications at as (unknown) (no (unknown) (unknown) Patient understands (unit s (unknown) date) plan and agrees to unknown) discharge home. All questions and (unknown) (no (unknown) (unknown) Patient was given (units (unknown) date) strict return unknown) precautions. EKG did not have any STEMI, no ST (unknown) (no (unknown) (unknown) Patient: (units (unkno wn) date) JackelineDominic Gisele unknown) MR#: M (unknown) (no (unknown) (unknown) Percocet, and (units ( unknown) date) diclofenac gel, and unknown) muscle relaxers for all of your symptoms. (unknown) (no (unknown) (unknown) Please continue (units (unknown) date) doing what you are unknown) doing, stay hydrated, thank you for trusting (unknown) (no (unknown) (unknown) Potassium (units (unkn own) date) (3.4-5.1) mmol/L unknown) (unknown) (no (unknown) (unknown) Potassium 4.1 (units (unknown) date) (3.4-5.1) mmol/L unknown) (unknown) (no (unknown) (unknown) Prescriptions: (units (unknown) date) unknown) (unknown) (no (unknown) (unknown) Psych: mental (units ( unknown) date) status is grossly unknown) normal, congruent mood, normal affect, pleasant (unknown) (no (unknown) (unknown) Pulse Oximetry 94 (units (unknown) date) 91 unknown) (unknown) (no (unknown) (unknown) Pulse Oximetry 95 (units (unknown) date) 11/19/21 10:50 unknown) (unknown) (no (unknown) (unknown) Pulse Oximetry 91 (units (unknown) date) 93 93 unknown) (unknown) (no (unknown) (unknown) Pulse Oximetry 94 (units (unknown) date) unknown) (unknown) (no (unknown) (unknown) Pulse Rate 83 (units (unknown) date) 11/19/21 10:50 unknown) (unknown) (no (unknown) (unknown) Pulse Rate 78 69 (units (unknown) date) unknown) (unknown) (no (unknown) (unknown) Pulse Rate 81 (units ( unknown) date) unknown) (unknown) (no (unknown) (unknown) Pulse Rate 84 75 (units (unknown) date) unknown) (unknown) (no (unknown) (unknown) Qualifiers: (units (un known) date) unknown) (unknown) (no (unknown) (unknown) RDW (11.6-14.8) (unit s (unknown) date) % unknown) (unknown) (no (unknown) (unknown) RDW 13.5 (units (unk nown) date) (11.6-14.8) % unknown) (unknown) (no (unknown) (unknown) Referrals: (units (unk nown) date) unknown) (unknown) (no (unknown) (unknown) Related Data (units (u nknown) date) unknown) (unknown) (no (unknown) (unknown) Vincent Galvan MD (units (unknown) date) [Non-Staff] - unknown) (unknown) (no (unknown) (unknown) Respiratory Rate (units (unknown) date) 22 11/19/21 10:50 unknown) (unknown) (no (unknown) (unknown) Respiratory Rate 18 (unit s (unknown) date) unknown) (unknown) (no (unknown) (unknown) Respiratory Rate 20 (unit s (unknown) date) unknown) (unknown) (no (unknown) (unknown) Respiratory Rate 32 (unit s (unknown) date) H 21 unknown) (unknown) (no (unknown) (unknown) Respiratory: (units (u nknown) date) Endorses dyspnea, unknown) +cough, increased sinus drainage, productive (unknown) (no (unknown) (unknown) Respiratory: normal (unit s (unknown) date) effort, able to unknown) speak in complete sentences, no audible (unknown) (no (unknown) (unknown) Result diagrams: (units (unknown) date) unknown) (unknown) (no (unknown) (unknown) Review of Systems (units (unknown) date) unknown) (unknown) (no (unknown) (unknown) S/P CABG x 3 (units (u nknown) date) () unknown) (unknown) (no (unknown) (unknown) S/P cervical spinal (unit s (unknown) date) fusion unknown) (unknown) (no (unknown) (unknown) S/P lumbar fusion (units (unknown) date) unknown) (unknown) (no (unknown) (unknown) SARS-CoV-2 (PCR) (units (unknown) date) (Negative) unknown) (unknown) (no (unknown) (unknown) SARS-CoV-2 (PCR) (units (unknown) date) Negative unknown) (Negative) (unknown) (no (unknown) (unknown) Signed By: (units (unk nown) date) unknown) (unknown) (no (unknown) (unknown) Skin: brisk (units (un known) date) capillary refill, no unknown) rash, no erythema (unknown) (no (unknown) (unknown) Skin: denies rash, (units (unknown) date) itching, skin unknown) lesions or other (unknown) (no (unknown) (unknown) Smoking Status: (units (unknown) date) Former smoker unknown) (unknown) (no (unknown) (unknown) Smoking Status: (units (unknown) date) Former smoker unknown) (unknown) (no (unknown) (unknown) Social History (units (unknown) date) (Reviewed 11/19/21 @ unknown) 13:21 by [facility]) (unknown) (no (unknown) (unknown) Sodium (units (unkno wn) date) (137-145) mmol/L unknown) (unknown) (no (unknown) (unknown) Sodium 140 (units ( unknown) date) (137-145) mmol/L unknown) (unknown) (no (unknown) (unknown) Sodium Chloride (units (unknown) date) (Normal Saline 0.9%) unknown) 500 mls @ 1,000 mls/hr IV BOLUS ONE (unknown) (no (unknown) (unknown) Source: patient and (unit s (unknown) date) family unknown) (unknown) (no (unknown) (unknown) Stated Complaint: (units (unknown) date) STATES unknown) PNEUMONIA-PHYSICAIN REFERRED (unknown) (no (unknown) (unknown) [facility] (units (unknown) date) Reductase AdvReac unknown) Mild WEAK Verified 04/16/21 12:13 (unknown) (no (unknown) (unknown) Substance Use Type: (unit s (unknown) date) does not use unknown) (unknown) (no (unknown) (unknown) Sulfa (Sulfonamide (units (unknown) date) Allergy Mild RASH unknown) Verified 04/16/21 12:13 (unknown) (no (unknown) (unknown) Surgical History (units (unknown) date) (Reviewed 11/19/21 @ unknown) 13:21 [facility]) (unknown) (no (unknown) (unknown) Surgical changes (units (unknown) date) and devices:? unknown) Redemonstrated sternotomy wires, evidence of (unknown) (no (unknown) (unknown) TECHNIQUE:? 2 views (unit s (unknown) date) of the chest were unknown) acquired.? (unknown) (no (unknown) (unknown) Temperature 97.8 F (unit s (unknown) date) 11/19/21 10:50 unknown) (unknown) (no (unknown) (unknown) Dominic Gonzalez (units (unknown) date) MD Ezra unknown) [Physician] - (unknown) (no (unknown) (unknown) Time Seen by (units (u nknown) date) Provider: 11/19/21 unknown) 12:02 (unknown) (no (unknown) (unknown) To the emergency (units (unknown) date) department with unknown) history of COPD, seasonal allergies, and what I (unknown) (no (unknown) (unknown) Total Bilirubin (units (unknown) date) (0.2-1.3) mg/dL unknown) (unknown) (no (unknown) (unknown) Total Bilirubin (units (unknown) date) 0.5 (0.2-1.3) unknown) mg/dL (unknown) (no (unknown) (unknown) Total Protein (units ( unknown) date) (6.3-8.2) g/dL unknown) (unknown) (no (unknown) (unknown) Total Protein (units ( unknown) date) 7.7 (6.3-8.2) g/dL unknown) (unknown) (no (unknown) (unknown) Ventricular (units (un known) date) bigeminy unknown) (unknown) (no (unknown) (unknown) Vital Signs (units (un known) date) unknown) (unknown) (no (unknown) (unknown) Vital signs: (units (u nknown) date) unknown) (unknown) (no (unknown) (unknown) [Embedded Image Not (unit s (unknown) date) Available] unknown) (unknown) (no (unknown) (unknown) [[id number] (units (unknown) date) REDUCTASE unknown) (unknown) (no (unknown) (unknown) [SULFA (SULFONAMIDE (unit s (unknown) date) unknown) (unknown) (no (unknown) (unknown) acetaminophen 300 (units (unknown) date) mg-codeine 30 mg 1 unknown) tab PO Q6HR PRN 10/08/21 10/08/21 (unknown) (no (unknown) (unknown) acetaminophen 325 (units (unknown) date) mg tablet 650 mg PO unknown) Q6H PRN #60 tab 11/06/20 (unknown) (no (unknown) (unknown) alcohol intake (units (unknown) date) frequency: unknown) holidays/special occasions only (unknown) (no (unknown) (unknown) alcohol intake: (units (unknown) date) current unknown) (unknown) (no (unknown) (unknown) allergies. He (units (unknown) date) endorses lot of unknown) sinus congestion, and yearly issues with a (unknown) (no (unknown) (unknown) amenable to (units (un known) date) discharge home. unknown) Vital signs are stable on repeat examination is (unknown) (no (unknown) (unknown) amoxicillin 875 (units (unknown) date) mg-potassium 1 tab unknown) PO BID 7 Days #14 tab 11/19/21 (unknown) (no (unknown) (unknown) and cooperative (units (unknown) date) unknown) (unknown) (no (unknown) (unknown) appointment. Let (units (unknown) date) them know you were unknown) seen in the Emergency Department and that we (unknown) (no (unknown) (unknown) asked that you be (units (unknown) date) seen for follow-up. unknown) We will electronically transmit a record (unknown) (no (unknown) (unknown) back pain, asking (units (unknown) date) for some unknown) breakthrough opioid medicine to help with this. (unknown) (no (unknown) (unknown) benzonatate 100 mg (units (unknown) date) capsule 100 mg PO unknown) TID PRN #14 cap 03/05/21 (unknown) (no (unknown) (unknown) buprenorphine (units ( unknown) date) [BUPRENORPHINE] unknown) AdvReac Mild NAUSEA, Verified 04/16/21 12:13 (unknown) (no (unknown) (unknown) care provider. (units (unknown) date) Patient did not have unknown) any hypoxia or respiratory distress. (unknown) (no (unknown) (unknown) cefdinir 300 mg (units (unknown) date) capsule 300 mg PO unknown) BID #20 cap 10/09/21 (unknown) (no (unknown) (unknown) celecoxib (units (unkn own) date) [CELECOXIB] Allergy unknown) Mild SWELLING Verified 04/16/21 12:13 (unknown) (no (unknown) (unknown) cervical spine (units (unknown) date) hardware.? unknown) (unknown) (no (unknown) (unknown) cetirizine 10 mg (units (unknown) date) capsule (Zyrtec) 10 unknown) mg PO DAILY 05/22/19 10/08/21 (unknown) (no (unknown) (unknown) changes, normal (units (unknown) date) sinus rhythm 84 unknown) beats per minute. Patient is appropriate and (unknown) (no (unknown) (unknown) clavulanate 125 mg (units (unknown) date) tablet unknown) (unknown) (no (unknown) (unknown) complaining of low (units (unknown) date) back pain unknown) exacerbation. Lab work was significant for an (unknown) (no (unknown) (unknown) concerning (units (unk nown) date) symptoms, such as unknown) [fever greater than 101F, chills, worsening pain, (unknown) (no (unknown) (unknown) concerns answered (units (unknown) date) at this time. unknown) (unknown) (no (unknown) (unknown) continue doing all (units (unknown) date) of the things were unknown) doing for your allergies including Flonase (unknown) (no (unknown) (unknown) cough, denies any (units (unknown) date) shortness of breath unknown) with exertion or orthopnea (unknown) (no (unknown) (unknown) diazepam [From (units (unknown) date) Valium] AdvReac unknown) Confusion Verified 04/16/21 12:13 (unknown) (no (unknown) (unknown) diclofenac sodium 1 (unit s (unknown) date) % topical gel 2 g unknown) TOPICAL QID #100 g 11/19/21 (unknown) (no (unknown) (unknown) distress, has been (units (unknown) date) afebrile, without unknown) signs of sepsis, without tachycardia or (unknown) (no (unknown) (unknown) effusions (units (unkn own) date) unknown) (unknown) (no (unknown) (unknown) elevated lactate (units (unknown) date) without leukocytosis unknown) or left shift, lactate was 3.7, he was (unknown) (no (unknown) (unknown) establish care with [facility]unit [facility] (unknown) [facility]. (unknown) (no (unknown) (unknown) ferrous sulfate 325 (unit s (unknown) date) mg (65 mg 325 mg PO unknown) DAILY 10/19/19 10/08/21 (unknown) (no (unknown) (unknown) fluticasone (units (un known) date) propionate 50 1 unknown) spray INTRANASAL DAILY PRN #0 11/02/17 10/08/21 (unknown) (no (unknown) (unknown) followed by an (units (unknown) date) albuterol neb for unknown) ongoing extra Alyssa wheezes but he improved (unknown) (no (unknown) (unknown) furosemide 40 mg (units (unknown) date) tablet (Lasix) 40 mg unknown) PO DAILY 10/08/21 10/08/21 (unknown) (no (unknown) (unknown) gain.? He denies (units (unknown) date) nausea, vomiting or unknown) diarrhea. Patient is complaining was low (unknown) (no (unknown) (unknown) given 500 mL of (units (unknown) date) normal saline for unknown) dehydration, recheck lactate was 1.8. Patient (unknown) (no (unknown) (unknown) glipizide 2.5 mg (units (unknown) date) tablet, extended 2.5 unknown) mg PO DAILY 10/08/21 10/08/21 (unknown) (no (unknown) (unknown) greatly after the (units (unknown) date) 1st and even more so unknown) after the 2nd. He was not in any (unknown) (no (unknown) (unknown) groomed (units (unkno wn) date) unknown) (unknown) (no (unknown) (unknown) hand (units (unkno wn) date) unknown) (unknown) (no (unknown) (unknown) has been reviewed. (units (unknown) date) I agree with unknown) assessment and plan. (unknown) (no (unknown) (unknown) helped and (units (unk nown) date) steroids. His unknown) densitometrist is Dr. Gavlan (unknown) (no (unknown) (unknown) his allergic (units (u nknown) date) rhinitis unknown) medications, follow-up with his densitometrist and primary (unknown) (no (unknown) (unknown) household members: (units (unknown) date) spouse unknown) (unknown) (no (unknown) (unknown) hyoscyamine (units (un known) date) [HYOSCYAMINE] unknown) AdvReac Mild LEG Verified 04/16/21 12:13 (unknown) (no (unknown) (unknown) hypertension and (units (unknown) date) was hypertensive unknown) during his stay, he did receive 1 DuoNeb, (unknown) (no (unknown) (unknown) hypotension. Chest (unit s (unknown) date) x-ray does not show unknown) any acute cardiopulmonary abnormality. (unknown) (no (unknown) (unknown) iron) (units (unkno wn) date) tablet,delayed unknown) release (unknown) (no (unknown) (unknown) latex [LATEX] (units ( unknown) date) Allergy Mild RASH unknown) Verified 04/16/21 12:13 (unknown) (no (unknown) (unknown) levalbuterol HCl (units (unknown) date) 1.25 mg/3 mL 3 ml unknown) INHALATION Q6H PRN 10/16/18 10/08/21 (unknown) (no (unknown) (unknown) levalbuterol (units (u nknown) date) tartrate 45 1 puff unknown) INHALATION Q4-6H PRN #15 06/22/18 (unknown) (no (unknown) (unknown) lightheaded.? He (units (unknown) date) denies any unknown) exertional component, medication change or weight (unknown) (no (unknown) (unknown) low back pain which (unit s (unknown) date) is also worse with unknown) coughing. He is not dizzy nor weak or (unknown) (no (unknown) (unknown) mcg/actuation (units ( unknown) date) aerosol inhaler gram unknown) (unknown) (no (unknown) (unknown) mcg/actuation nasal (unit s (unknown) date) unknown) (unknown) (no (unknown) (unknown) meclizine 25 mg (units (unknown) date) tablet 25 mg PO QID unknown) PRN #30 tab 10/09/21 (unknown) (no (unknown) (unknown) methocarbamol 500 (units (unknown) date) mg tablet 500 mg PO unknown) Q8H PRN #14 tab 11/19/21 (unknown) (no (unknown) (unknown) metoprolol tartrate (unit s (unknown) date) 100 mg tablet 100 mg unknown) PO BID 10/16/18 10/08/21 (unknown) (no (unknown) (unknown) mg tablet (units (unkn own) date) (Percocet) unknown) (unknown) (no (unknown) (unknown) multivitamin (units (u nknown) date) (Multiple Vitamins) unknown) 1 tab PO DAILY #0 12/20/16 10/08/21 (unknown) (no (unknown) (unknown) nebs as often as (units (unknown) date) you need them. I unknown) have called in Augmentin, prednisone, (unknown) (no (unknown) (unknown) of today's note if (units (unknown) date) your PCP is in our unknown) system (unknown) (no (unknown) (unknown) or pneumothorax.? (units (unknown) date) unknown) (unknown) (no (unknown) (unknown) oxycodone 5 mg (units (unknown) date) tablet 10 mg PO unknown) Q4-5H PRN #60 tab 11/06/20 (unknown) (no (unknown) (unknown) oxycodone-acetamino (unit s (unknown) date) phen 5 mg-325 1 tab unknown) PO Q8H PRN #10 tab 11/19/21 (unknown) (no (unknown) (unknown) oxycodone-acetamino (unit s (unknown) date) phen 5 mg-325 1 tab unknown) PO TID PRN #10 tab 11/19/21 (unknown) (no (unknown) (unknown) pain. He endorses (units (unknown) date) that he takes unknown) Dulcolax to prevent constipation. He is also (unknown) (no (unknown) (unknown) persistent vomiting (unit s (unknown) date) or other bothersome unknown) symptoms] (unknown) (no (unknown) (unknown) prednisone 50 mg (units (unknown) date) tablet 50 mg PO unknown) DAILY #5 tab 11/19/21 (unknown) (no (unknown) (unknown) prednisone 50 mg (units (unknown) date) tablet 50 mg PO unknown) DAILY 5 Days tab 11/19/21 (unknown) (no (unknown) (unknown) prescribed (units (unk nown) date) including Flonase, unknown) levalbuterol, Zyrtec, Benadryl, singular for his (unknown) (no (unknown) (unknown) productive cough (units (unknown) date) this time of year. unknown) He has had no fever or chills but states (unknown) (no (unknown) (unknown) densitometrist is (units (unknown) date) Dr. Maribeth palmer. unknown) Recommend humidifier, sinus rinses, continuing (unknown) (no (unknown) (unknown) release 24 hr (units ( unknown) date) (Glucotrol XL) unknown) (unknown) (no (unknown) (unknown) request of his (units (unknown) date) primary care unknown) provider for 3 days of increased upper respiratory (unknown) (no (unknown) (unknown) respiratory (units (un known) date) distress, main unknown) complaint was fatigue. He was given 125 mg of Solu- (unknown) (no (unknown) (unknown) return extra Alyssa (units (unknown) date) wheezes throughout unknown) all lung cruz, was not in any acute (unknown) (no (unknown) (unknown) significant (units (un known) date) findings on his lab unknown) work today. Patient has a history of (unknown) (no (unknown) (unknown) solution for (units (u nknown) date) nebulization unknown) (unknown) (no (unknown) (unknown) spray,suspension (units (unknown) date) unknown) (unknown) (no (unknown) (unknown) strict return to ER (unit s (unknown) date) precautions for any unknown) new or worsening symptoms. Patient (unknown) (no (unknown) (unknown) stridor, or rales. (units (unknown) date) No retractions or unknown) tachypnea. Inspiratory and expiratory (unknown) (no (unknown) (unknown) substance use type: (unit s (unknown) date) does not use unknown) (unknown) (no (unknown) (unknown) symptoms. Patient (units (unknown) date) states that he has unknown) received Augmentin in the past which has (unknown) (no (unknown) (unknown) tablet (units (unkno wn) date) unknown) (unknown) (no (unknown) (unknown) tenderness with (units (unknown) date) exam, without unknown) guarding or rebound. (unknown) (no (unknown) (unknown) that he is more (units (unknown) date) tired than usual, unknown) has a frontal headache due to coughing ongoing (unknown) (no (unknown) (unknown) trazodone 100 mg (units (unknown) date) tablet 400 tab PO unknown) BEDTIME 12/09/17 10/08/21 (unknown) (no (unknown) (unknown) understands to (units (unknown) date) follow up closely unknown) with outpatient providers as instructed. (unknown) (no (unknown) (unknown) unremarkable. (units ( unknown) date) Patient has been unknown) informed of results. Patient has been given (unknown) (no (unknown) (unknown) unremarkable.? (units (unknown) date) unknown) (unknown) (no (unknown) (unknown) us with your care, I (unit s (unknown) date) hope that you feel unknown) better soon. Please follow-up with your (unknown) (no (unknown) (unknown) varenicline (units (un known) date) [VARENICLINE] unknown) AdvReac Severe Paranoia Verified 04/16/21 12:13 (unknown) (no (unknown) (unknown) weakness (units (unkno wn) date) unknown) (unknown) (no (unknown) (unknown) wheezes throughout (units (unknown) date) all cruz, no unknown) crackles, rales, or absent sounds. (unknown) (no (unknown) (unknown) wheezing, shortness (unit s (unknown) date) of breath, cough and unknown) congestion due to his seasonal (unknown) (no (unknown) (unknown) with rightward axis (units (unknown) date) and intervals. No unknown) STEMI, ST segment changes, arrhythmia, or Result panel 11 (unknown) (no (unknown) (unknown) (no value) (units (unk nown) date) unknown) (unknown) (no (unknown) (unknown) [address] [place] [address] (units (unknown) date) unknown) (unknown) (no (unknown) (unknown) [place], [place] (units ( unknown) date) [id number] unknown) (unknown) (no (unknown) (unknown) [facility] (units (unknown) date) unknown) (unknown) (no (unknown) (unknown) Signed (units (unkno wn) date) unknown) (unknown) (no (unknown) (unknown) XRay Report (units (un known) date) unknown) (unknown) (no (unknown) (unknown) (no value) (units (unk nown) date) unknown) (unknown) (no (unknown) (unknown) 11/28/21 (units (unkno wn) date) unknown) (unknown) (no (unknown) (unknown) Approved by: [facility] (units (unknown) date) Clifford Charles on unknown) 11/28/2021 at 16:02 (unknown) (no (unknown) (unknown) Bones and chest (units (unknown) date) wall: No unknown) suspicious bony lesions. Overlying soft tissues (unknown) (no (unknown) (unknown) COMPARISON: (units (un known) date) [facility], unknown) CR, XR CHEST 2V, 11/19/2021, 11:23. (unknown) (no (unknown) (unknown) FINDINGS: (units (unkn own) date) unknown) (unknown) (no (unknown) (unknown) IMPRESSION: No (units (unknown) date) acute unknown) cardiopulmonary findings (unknown) (no (unknown) (unknown) INDICATIONS: (units (u nknown) date) shortness of unknown) breath (unknown) (no (unknown) (unknown) Lower cervical (units (unknown) date) spine hardware. unknown) No acute cardiopulmonary findings (unknown) (no (unknown) (unknown) Lungs and pleura: (units (unknown) date) Lungs are clear. unknown) No pleural effusions or pneumothorax. (unknown) (no (unknown) (unknown) Mediastinum: (units (u nknown) date) Mediastinal unknown) contours appear normal. Heart size is normal. (unknown) (no (unknown) (unknown) Surgical changes (units (unknown) date) and devices: unknown) Midline sternal wires mediastinal vascular clips (unknown) (no (unknown) (unknown) TECHNIQUE: One (units (unknown) date) view of the chest unknown) was acquired. (unknown) (no (unknown) (unknown) unremarkable. (units ( unknown) date) unknown) (unknown) (no (unknown) (unknown) Accession Number: (units (unknown) date) [id number] unknown) (unknown) (no (unknown) (unknown) Age/Sex: 76 / M (units (unknown) date) Date of Service: unknown) (unknown) (no (unknown) (unknown) : 1945 (units (unknown) date) Acct:[id number] unknown) (unknown) (no (unknown) (unknown) Loc: ED (units (unkno wn) date) unknown) (unknown) (no (unknown) (unknown) [id number] (units (unk nown) date) unknown) (unknown) (no (unknown) (unknown) Ordering (units (unkno wn) date) Provider: unknown) Sarita Tapia MD (unknown) (no (unknown) (unknown) PROCEDURE: XR (units (unknown) date) CHEST 1V unknown) (unknown) (no (unknown) (unknown) Patient: (units (unkno wn) date) Dominic Viveros unknown) MR#: (unknown) (no (unknown) (unknown) Procedure: XR (units ( unknown) date) chest 1V unknown) (unknown) (no (unknown) (unknown) appear (units (unkno wn) date) unknown) (unknown) (no (unknown) (unknown) present. (units (unkno wn) date) unknown) Result panel 12 (unknown) (no date) (unknown) (unknown) 1.2 % (unkn own) (unknown) (no date) (unknown) (unknown) 10.4 % (unkn own) (unknown) (no date) (unknown) (unknown) 100 /uL (unkn own) (unknown) (no date) (unknown) (unknown) 13.6 % (unkn own) (unknown) (no date) (unknown) (unknown) 14.7 g/dL (unkn own) (unknown) (no date) (unknown) (unknown) 1700 /uL (unkn own) (unknown) (no date) (unknown) (unknown) 23.5 % (unkn own) (unknown) (no date) (unknown) (unknown) 236 X10 3/uL (unkn own) (unknown) (no date) (unknown) (unknown) 32.0 PG (unkn own) (unknown) (no date) (unknown) (unknown) 34.4 % (unkn own) (unknown) (no date) (unknown) (unknown) 4.61 X10 6/uL (unkn own) (unknown) (no date) (unknown) (unknown) 4000 /uL (unkn own) (unknown) (no date) (unknown) (unknown) 42.9 % (unkn own) (unknown) (no date) (unknown) (unknown) 55.2 % (unkn own) (unknown) (no date) (unknown) (unknown) 7.3 X10 3/uL (unkn own) (unknown) (no date) (unknown) (unknown) 700 /uL (unkn own) (unknown) (no date) (unknown) (unknown) 800 /uL (unkn own) (unknown) (no date) (unknown) (unknown) 9.7 % (unkn own) (unknown) (no date) (unknown) (unknown) 93.2 fL (unkn own) Result panel 13 (unknown) (no date) (unknown) (unknown) > 60 mL/min (unkn own) (unknown) (no date) (unknown) (unknown) 0.6 mg/dL (unkn own) (unknown) (no date) (unknown) (unknown) 0.76 mg/dL (unkn own) (unknown) (no date) (unknown) (unknown) 1.4 (units unknown) (unknown) (unknown) (no date) (unknown) (unknown) 104 mmol/L (unkn own) (unknown) (no date) (unknown) (unknown) 13 mg/dL (unkn own) (unknown) (no date) (unknown) (unknown) 140 mmol/L (unkn own) (unknown) (no date) (unknown) (unknown) 17.1 (units unknown) (unknown) (unknown) (no date) (unknown) (unknown) 2.6 mmol/L (unkn own) (unknown) (no date) (unknown) (unknown) 26 mmol/L (unkn own) (unknown) (no date) (unknown) (unknown) 29 IU/L (unkn own) (unknown) (no date) (unknown) (unknown) 3.2 g/dL (unkn own) (unknown) (no date) (unknown) (unknown) 30 IU/L (unkn own) (unknown) (no date) (unknown) (unknown) 4.4 g/dL (unkn own) (unknown) (no date) (unknown) (unknown) 4.6 mmol/L (unkn own) (unknown) (no date) (unknown) (unknown) 68 U/L (unkn own) (unknown) (no date) (unknown) (unknown) 7.6 g/dL (unkn own) (unknown) (no date) (unknown) (unknown) 8.6 mg/dL (unkn own) (unknown) (no date) (unknown) (unknown) 98 mg/dL (unkn own) Result panel 14 (unknown) (no date) (unknown) (unknown) < 0.012 ng/mL (unkn own) (unknown) (no date) (unknown) (unknown) 190 pg/mL (unkn own) (unknown) (no date) (unknown) (unknown) 232 ng/mL (unkn own) Result panel 15 (unknown) (no date) (unknown) (unknown) < 0.012 ng/mL (unkn own) (unknown) (no date) (unknown) (unknown) 0.04 ng/mL (unkn own) (unknown) (no date) (unknown) (unknown) 190 pg/mL (unkn own) Result panel 16 (unknown) (no (unknown) (unknown) (no value) (units (unk nown) date) unknown) (unknown) (no (unknown) (unknown) Radiologist's (units ( unknown) date) Impression: unknown) (unknown) (no (unknown) (unknown) Date of Service: (units (unknown) date) 11/28/21 unknown) (unknown) (no (unknown) (unknown) (no value) (units (unk nown) date) unknown) (unknown) (no (unknown) (unknown) 11/28/21 15:05 (units (unknown) date) unknown) (unknown) (no (unknown) (unknown) 1 puff INHALATION (units (unknown) date) Q4-6H PRN (Reason: unknown) shortness of breath or wheezing) Qty: 15 (unknown) (no (unknown) (unknown) 1 spray (units (unkno wn) date) Intranasal DAILY unknown) PRN (Reason: Allergy Symptoms) Qty: 0 0RF (unknown) (no (unknown) (unknown) 1 tab PO DAILY (units (unknown) date) Qty: 0 0RF unknown) (unknown) (no (unknown) (unknown) 1 tab PO Q6HR PRN (units (unknown) date) (Reason: Back unknown) Pain) 0RF (unknown) (no (unknown) (unknown) 1 tab PO Q8H PRN (units (unknown) date) (Reason: pain) unknown) Qty: 10 0RF (unknown) (no (unknown) (unknown) 1 tab PO TID PRN (units (unknown) date) (Reason: pain) unknown) Qty: 10 0RF (unknown) (no (unknown) (unknown) 10 mg PO DAILY (units (unknown) date) 0RF unknown) (unknown) (no (unknown) (unknown) 10 mg PO Q4-5H (units (unknown) date) PRN (Reason: Pain, unknown) Severe (7-10)) Qty: 60 0RF (unknown) (no (unknown) (unknown) 100 mg PO BID 0RF (units (unknown) date) unknown) (unknown) (no (unknown) (unknown) 100 mg PO TID PRN (units (unknown) date) (Reason: cough) unknown) Qty: 14 0RF (unknown) (no (unknown) (unknown) 2 g topical QID (units (unknown) date) Qty: 100 0RF unknown) (unknown) (no (unknown) (unknown) 2.5 mg PO DAILY (units (unknown) date) 0RF unknown) (unknown) (no (unknown) (unknown) 25 mg PO QID PRN (units (unknown) date) (Reason: vertigo) unknown) Qty: 30 0RF (unknown) (no (unknown) (unknown) 3 ml Inhalation (units (unknown) date) Q6H PRN (Reason: unknown) Shortness Of Breath) 0RF (unknown) (no (unknown) (unknown) 300 mg PO BID (units ( unknown) date) Qty: 20 0RF unknown) (unknown) (no (unknown) (unknown) 325 mg PO DAILY (units (unknown) date) 0RF unknown) (unknown) (no (unknown) (unknown) 40 mg PO DAILY (units (unknown) date) 0RF unknown) (unknown) (no (unknown) (unknown) 400 tab PO (units (unk nown) date) BEDTIME 0RF unknown) (unknown) (no (unknown) (unknown) 50 mg PO DAILY (units (unknown) date) Qty: 5 0RF unknown) (unknown) (no (unknown) (unknown) 500 mg PO Q8H PRN (units (unknown) date) (Reason: muscle unknown) spasm) Qty: 14 0RF (unknown) (no (unknown) (unknown) 650 mg PO Q6H PRN (units (unknown) date) (Reason: pain) unknown) Qty: 60 0RF (unknown) (no (unknown) (unknown) ANXIETY, (units (unkno wn) date) unknown) (unknown) (no (unknown) (unknown) Allergies (units (unkn own) date) unknown) (unknown) (no (unknown) (unknown) DIZZINESS (units (unkn own) date) unknown) (unknown) (no (unknown) (unknown) Documented by: (units (unknown) date) CTR.TVO unknown) (unknown) (no (unknown) (unknown) Documented by: (units (unknown) date) INOCENCIA unknown) (unknown) (no (unknown) (unknown) ED Orders (units (unkn own) date) unknown) (unknown) (no (unknown) (unknown) EXPOSURE (units (unkno wn) date) unknown) (unknown) (no (unknown) (unknown) Emergency Report (units (unknown) date) unknown) (unknown) (no (unknown) (unknown) Home Medications (units (unknown) date) unknown) (unknown) (no (unknown) (unknown) INHALE 1 VIAL PER (units (unknown) date) NEBULIZER EVERY 6 unknown) HOURS NEEDED (unknown) (no (unknown) (unknown) [facility] (units (unknown) date) [address] [place] [address] Street unknown) [place] [address] (unknown) (no (unknown) (unknown) JERKING, (units (unkno wn) date) unknown) (unknown) (no (unknown) (unknown) Lab Results (units (un known) date) unknown) (unknown) (no (unknown) (unknown) Label Comments: (units (unknown) date) unknown) (unknown) (no (unknown) (unknown) Last Admin: (units (un known) date) 11/28/21 15:14 unknown) Dose: 3 ml (unknown) (no (unknown) (unknown) Last Admin: (units (un known) date) 11/28/21 15:14 unknown) Dose: 5 mg (unknown) (no (unknown) (unknown) Last Admin: (units (un known) date) 11/28/21 16:12 unknown) Dose: 2 tab (unknown) (no (unknown) (unknown) MINUTES (units (unkno wn) date) unknown) (unknown) (no (unknown) (unknown) NAUSEA W/I (units (unk nown) date) unknown) (unknown) (no (unknown) (unknown) Previous Rx's (units ( unknown) date) unknown) (unknown) (no (unknown) (unknown) Rx Instructions: (units (unknown) date) unknown) (unknown) (no (unknown) (unknown) Spouse Milana (units (u nknown) date) called + reported unknown) patient not taking it regularly. (unknown) (no (unknown) (unknown) Stop: 11/28/21 (units (unknown) date) 15:11 unknown) (unknown) (no (unknown) (unknown) Stop: 11/28/21 (units (unknown) date) 16:02 unknown) (unknown) (no (unknown) (unknown) Stop: 11/28/21 (units (unknown) date) 17:35 unknown) (unknown) (no (unknown) (unknown) Vital Signs - 8 (units (unknown) date) hr unknown) (unknown) (no (unknown) (unknown) W/EXTENDED (units (unk nown) date) unknown) (unknown) (no (unknown) (unknown) apply to single (units (unknown) date) elbow, wrist or unknown) hand; for hand includes palm/fingers/back of (unknown) (no (unknown) (unknown) patient states (units (unknown) date) weaning off. unknown) (unknown) (no (unknown) (unknown) take 1 tablet by (units (unknown) date) mouth once daily unknown) (unknown) (no (unknown) (unknown) take 1 tablet by (units (unknown) date) mouth twice a day unknown) (unknown) (no (unknown) (unknown) (no value) (units (unk nown) date) unknown) (unknown) (no (unknown) (unknown) 11/28/21 11/28/21 (units (unknown) date) 11/28/21 unknown) Range/Units (unknown) (no (unknown) (unknown) 11/28/21 11/28/21 (units (unknown) date) Range/Units unknown) (unknown) (no (unknown) (unknown) 15:05 15:05 15:05 (units (unknown) date) unknown) (unknown) (no (unknown) (unknown) 16:36 16:36 (units (un known) date) unknown) (unknown) (no (unknown) (unknown) Zyrtec 10 mg (units (u nknown) date) Capsule unknown) (unknown) (no (unknown) (unknown) acetaminophen (units ( unknown) date) [Athenol] 325 mg unknown) tablet (unknown) (no (unknown) (unknown) acetaminophen-cod (units (unknown) date) eine 300-30 mg unknown) tablet (unknown) (no (unknown) (unknown) benzonatate (units (un known) date) [Tessalon Perles] unknown) 100 mg capsule (unknown) (no (unknown) (unknown) cefdinir 300 mg (units (unknown) date) capsule unknown) (unknown) (no (unknown) (unknown) diclofenac sodium (units (unknown) date) 1 % gel unknown) (unknown) (no (unknown) (unknown) ferrous sulfate (units (unknown) date) 325 mg (65 mg unknown) iron) tablet,delayed release (DR/EC) (unknown) (no (unknown) (unknown) fluticasone (units (un known) date) propionate 16 GM unknown) spray,suspension (unknown) (no (unknown) (unknown) furosemide (units (unk nown) date) [Lasix] 40 mg unknown) tablet (unknown) (no (unknown) (unknown) glipizide (units (unkn own) date) [Glucotrol XL] 2.5 unknown) mg tablet extended release 24 hr (unknown) (no (unknown) (unknown) levalbuterol HCl (units (unknown) date) 1.25 mg/3 mL unknown) solution for nebulization (unknown) (no (unknown) (unknown) levalbuterol (units (u nknown) date) tartrate [Xopenex unknown) HFA] 45 mcg/actuation HFA aerosol inhaler (unknown) (no (unknown) (unknown) meclizine 25 mg (units (unknown) date) tablet unknown) (unknown) (no (unknown) (unknown) methocarbamol 500 (units (unknown) date) mg tablet unknown) (unknown) (no (unknown) (unknown) metoprolol (units (unk nown) date) tartrate 100 mg unknown) tablet (unknown) (no (unknown) (unknown) multivitamin (units (u nknown) date) [Multiple unknown) Vitamins] 1 EACH tablet (unknown) (no (unknown) (unknown) oxycodone 5 mg (units (unknown) date) Tablet unknown) (unknown) (no (unknown) (unknown) oxycodone-acetami (units (unknown) date) nophen [Percocet] unknown) 5-325 mg tablet (unknown) (no (unknown) (unknown) prednisone 50 mg (units (unknown) date) tablet unknown) (unknown) (no (unknown) (unknown) trazodone 100 mg (units (unknown) date) tablet unknown) (unknown) (no (unknown) (unknown) 11/28/21 (units (unkno wn) date) unknown) (unknown) (no (unknown) (unknown) Medication (units (unk nown) date) Instructions unknown) Recorded (unknown) (no (unknown) (unknown) Medication (units (unk nown) date) Instructions unknown) Recorded Confirmed (unknown) (no (unknown) (unknown) (Athenol) (units (unkn own) date) unknown) (unknown) (no (unknown) (unknown) (Tessalon Perles) (units (unknown) date) unknown) (unknown) (no (unknown) (unknown) (Xopenex HFA) (units ( unknown) date) unknown) (unknown) (no (unknown) (unknown) [id number] (units (unkn own) date) unknown) (unknown) (no (unknown) (unknown) 11/28/21 13:51 (units (unknown) date) unknown) (unknown) (no (unknown) (unknown) 11/28/21 15:00 (units (unknown) date) unknown) (unknown) (no (unknown) (unknown) 11/28/21 15:04 (units (unknown) date) unknown) (unknown) (no (unknown) (unknown) 11/28/21 15:05 (units (unknown) date) unknown) (unknown) (no (unknown) (unknown) 11/28/21 16:36 (units (unknown) date) unknown) (unknown) (no (unknown) (unknown) 0RF (units (unkno wn) date) unknown) (unknown) (no (unknown) (unknown) 14:59 11/28/21 (units (unknown) date) unknown) (unknown) (no (unknown) (unknown) 15:00 11/28/21 (units (unknown) date) unknown) (unknown) (no (unknown) (unknown) 15:04 (units (unkno wn) date) unknown) (unknown) (no (unknown) (unknown) 15:08 11/28/21 (units (unknown) date) unknown) (unknown) (no (unknown) (unknown) 15:10 11/28/21 (units (unknown) date) unknown) (unknown) (no (unknown) (unknown) 15:15 (units (unkno wn) date) unknown) (unknown) (no (unknown) (unknown) 15:30 11/28/21 (units (unknown) date) unknown) (unknown) (no (unknown) (unknown) 16:00 11/28/21 (units (unknown) date) unknown) (unknown) (no (unknown) (unknown) 16:15 (units (unkno wn) date) unknown) (unknown) (no (unknown) (unknown) ? (units (unkno wn) date) unknown) (unknown) (no (unknown) (unknown) ALT (<50) (units (u nknown) date) IU/L unknown) (unknown) (no (unknown) (unknown) ALT 29 (<50) (units (unknown) date) IU/L unknown) (unknown) (no (unknown) (unknown) ANTIBIOTICS)] (units ( unknown) date) unknown) (unknown) (no (unknown) (unknown) AST (17-59) (units (unknown) date) IU/L unknown) (unknown) (no (unknown) (unknown) AST 30 (units (unkno wn) date) (17-59) IU/L unknown) (unknown) (no (unknown) (unknown) Achalasia (units (unkn own) date) unknown) (unknown) (no (unknown) (unknown) Age/Sex: 76 / M (units (unknown) date) unknown) (unknown) (no (unknown) (unknown) Albumin (units (unkno wn) date) (3.5-5.0) g/dL unknown) (unknown) (no (unknown) (unknown) Albumin 4.4 (units ( unknown) date) (3.5-5.0) g/dL unknown) (unknown) (no (unknown) (unknown) Albumin/Globulin (units (unknown) date) Ratio (1.0-2.8) unknown) (unknown) (no (unknown) (unknown) Albumin/Globulin (units (unknown) date) Ratio 1.4 unknown) (1.0-2.8) (unknown) (no (unknown) (unknown) Albuterol (units (unkn own) date) (Albuterol 2.5 unknown) Mg/3 Ml Neb (Adult)) 5 mg INH NOW ONE (unknown) (no (unknown) (unknown) Albuterol/Ipratro (units (unknown) date) pium unknown) (Albuterol/Ipratro pium 3 Ml Ampul) 3 ml INH NOW ONE (unknown) (no (unknown) (unknown) Alkaline (units (unkno wn) date) Phosphatase unknown) (38-126) U/L (unknown) (no (unknown) (unknown) Alkaline (units (unkno wn) date) Phosphatase 68 unknown) (38-126) U/L (unknown) (no (unknown) (unknown) Allergy/AdvReac (units (unknown) date) Type Severity unknown) Reaction Status Date / Time (unknown) (no (unknown) (unknown) Anginal pain (units (u nknown) date) unknown) (unknown) (no (unknown) (unknown) Antibiotics) (units (u nknown) date) unknown) (unknown) (no (unknown) (unknown) Approved by: Lexx Blasunits (unknown) date) Clifford Charles on unknown) 11/28/2021 at 16:02? (unknown) (no (unknown) (unknown) Asthma (units (unkno wn) date) unknown) (unknown) (no (unknown) (unknown) Atrial (units (unkno wn) date) fibrillation unknown) (unknown) (no (unknown) (unknown) BNP [NT-proBNP (units (unknown) date) (BNP-Adult 18+)] unknown) Stat (unknown) (no (unknown) (unknown) BUN (9-20) (units ( unknown) date) mg/dL unknown) (unknown) (no (unknown) (unknown) BUN 13 (9-20) (units (unknown) date) mg/dL unknown) (unknown) (no (unknown) (unknown) BUN/Creatinine (units (unknown) date) Ratio (6-22) unknown) (unknown) (no (unknown) (unknown) BUN/Creatinine (units (unknown) date) Ratio 17.1 unknown) (6-22) (unknown) (no (unknown) (unknown) Baso # (Auto) (units ( unknown) date) (0-100) /uL unknown) (unknown) (no (unknown) (unknown) Baso # (Auto) (units ( unknown) date) 100 (0-100) unknown) /uL (unknown) (no (unknown) (unknown) Baso % (Auto) (units ( unknown) date) (0-2) % unknown) (unknown) (no (unknown) (unknown) Baso % (Auto) (units ( unknown) date) 1.2 (0-2) % unknown) (unknown) (no (unknown) (unknown) Blood Pressure (units (unknown) date) 130/89 113/77 unknown) (unknown) (no (unknown) (unknown) Blood Pressure (units (unknown) date) 132/90 11/28/21 unknown) 14:59 (unknown) (no (unknown) (unknown) Blood Pressure (units (unknown) date) 132/90 153/84 H unknown) (unknown) (no (unknown) (unknown) Blood Pressure (units (unknown) date) 153/87 H 154/63 H unknown) (unknown) (no (unknown) (unknown) Bones and chest (units (unknown) date) wall:? No unknown) suspicious bony lesions.? Overlying soft tissues (unknown) (no (unknown) (unknown) COPD (chronic (units ( unknown) date) obstructive unknown) pulmonary disease) (unknown) (no (unknown) (unknown) Calcium (units (unkno wn) date) (8.4-10.2) mg/dL unknown) (unknown) (no (unknown) (unknown) Calcium 8.6 (units ( unknown) date) (8.4-10.2) mg/dL unknown) (unknown) (no (unknown) (unknown) Carbon Dioxide (units (unknown) date) (22-32) mmol/L unknown) (unknown) (no (unknown) (unknown) Carbon Dioxide (units (unknown) date) 26 (22-32) unknown) mmol/L (unknown) (no (unknown) (unknown) Cervical spinal (units (unknown) date) stenosis unknown) (unknown) (no (unknown) (unknown) Chest x-ray: (units (u n) date) unknown) (unknown) (no (unknown) (unknown) Chief complaint: (units (unknown) date) Shortness of unknown) Breath/Dyspnea (unknown) (no (unknown) (unknown) Chloride (units (o wn) date) (98-107) mmol/L unknown) (unknown) (no (unknown) (unknown) Chloride 104 (units (unknown) date) (98-107) mmol/L unknown) (unknown) (no (unknown) (unknown) Chronic (units (o wn) date) obstructive unknown) pulmonary disease (10/22/16) (unknown) (no (unknown) (unknown) Complete Blood (units (unknown) date) Count AUTO DIFF unknown) Stat (unknown) (no (unknown) (unknown) Comprehensive (units ( unknown) date) Metabolic Panel unknown) Stat (unknown) (no (unknown) (unknown) Coronary artery (units (unknown) date) disease unknown) (unknown) (no (unknown) (unknown) Course (units (o wn) date) unknown) (unknown) (no (unknown) (unknown) Creatinine (units (unk nown) date) (0.66-1.25) mg/dL unknown) (unknown) (no (unknown) (unknown) Creatinine 0.76 (units (unknown) date) (0.66-1.25) unknown) mg/dL (unknown) (no (unknown) (unknown) D Dimer Stat (units (u nknown) date) unknown) (unknown) (no (unknown) (unknown) D-Dimer (units (o wn) date) (<230) ng/mL unknown) (unknown) (no (unknown) (unknown) D-Dimer 232 H (units (unknown) date) (<230) ng/mL unknown) (unknown) (no (unknown) (unknown) : 1945 (units (unknown) date) Acct:[id number] unknown) (unknown) (no (unknown) (unknown) Kimmy Gomez, (units (unknown) date) MD [Primary Care unknown) Provider] - (unknown) (no (unknown) (unknown) Departure (units (unkn own) date) unknown) (unknown) (no (unknown) (unknown) Discharge Plan (units (unknown) date) unknown) (unknown) (no (unknown) (unknown) Discontinued (units (u nknown) date) Medications unknown) (unknown) (no (unknown) (unknown) ECG Data (units (unkno wn) date) unknown) (unknown) (no (unknown) (unknown) EKG-12 Lead Stat (units (unknown) date) unknown) (unknown) (no (unknown) (unknown) ER Physician: (units ( unknown) date) Sarita Tapia unknown) (unknown) (no (unknown) (unknown) Eos # (Auto) (units (u nknown) date) (0-450) /uL unknown) (unknown) (no (unknown) (unknown) Eos # (Auto) 800 (units (unknown) date) H (0-450) /uL unknown) (unknown) (no (unknown) (unknown) Eos % (Auto) (units (u nknown) date) (2-4) % unknown) (unknown) (no (unknown) (unknown) Eos % (Auto) (units (u nknown) date) 10.4 H (2-4) % unknown) (unknown) (no (unknown) (unknown) Estimated GFR (units ( unknown) date) (>60) mL/min unknown) (unknown) (no (unknown) (unknown) Estimated GFR > (units (unknown) date) 60 (>60) mL/min unknown) (unknown) (no (unknown) (unknown) Exam (units (unkno wn) date) unknown) (unknown) (no (unknown) (unknown) FINDINGS:? (units (unk nown) date) unknown) (unknown) (no (unknown) (unknown) Family History (units (unknown) date) (Reviewed 11/19/21 unknown) @ 13:21 by Frida Pruitt [facility]) (unknown) (no (unknown) (unknown) General (units (unkno wn) date) unknown) (unknown) (no (unknown) (unknown) GenericComposite[ (units (unknown) date) Plt Count unknown) (150-400) X10^3/uL ] (unknown) (no (unknown) (unknown) GenericComposite[ (units (unknown) date) Plt Count 236 unknown) (150-400) X10^3/uL ] (unknown) (no (unknown) (unknown) GenericComposite[ (units (unknown) date) RBC (4.5-5.9) unknown) X10^6/uL ] (unknown) (no (unknown) (unknown) GenericComposite[ (units (unknown) date) RBC 4.61 unknown) (4.5-5.9) X10^6/uL ] (unknown) (no (unknown) (unknown) GenericComposite[ (units (unknown) date) WBC (4.5-11.0) unknown) X10^3/uL ] (unknown) (no (unknown) (unknown) GenericComposite[ (units (unknown) date) WBC 7.3 unknown) (4.5-11.0) X10^3/uL ] (unknown) (no (unknown) (unknown) Globulin (units (unkno wn) date) (1.7-4.1) g/dL unknown) (unknown) (no (unknown) (unknown) Globulin 3.2 (units (unknown) date) (1.7-4.1) g/dL unknown) (unknown) (no (unknown) (unknown) Glucose (units (unkno wn) date) (80-110) mg/dL unknown) (unknown) (no (unknown) (unknown) Glucose 98 D (units (unknown) date) (80-110) mg/dL unknown) (unknown) (no (unknown) (unknown) H/O arthroscopic (units (unknown) date) knee surgery unknown) (11/14/17) (unknown) (no (unknown) (unknown) HPI - General (units ( unknown) date) Adult unknown) (unknown) (no (unknown) (unknown) Hct (41-53) % (units (unknown) date) unknown) (unknown) (no (unknown) (unknown) Hct 42.9 (units (unkn own) date) (41-53) % unknown) (unknown) (no (unknown) (unknown) Hgb (units (unkno wn) date) (13.5-17.5) g/dL unknown) (unknown) (no (unknown) (unknown) Hgb 14.7 (units (unkn own) date) (13.5-17.5) g/dL unknown) (unknown) (no (unknown) (unknown) History of aortic (units (unknown) date) dissection unknown) () (unknown) (no (unknown) (unknown) History of (units (unk nown) date) arthroplasty of unknown) right knee (unknown) (no (unknown) (unknown) History of (units (unk nown) date) bilateral total unknown) hip arthroplasty (unknown) (no (unknown) (unknown) History of (units (unk nown) date) cardiac cath unknown) () (unknown) (no (unknown) (unknown) History of (units (unk nown) date) esophageal surgery unknown) (unknown) (no (unknown) (unknown) History of (units (unk nown) date) incision and unknown) drainage (-2016) (unknown) (no (unknown) (unknown) History of prior (units (unknown) date) ablation treatment unknown) () (unknown) (no (unknown) (unknown) History of (units (unk nown) date) surgery unknown) (unknown) (no (unknown) (unknown) Hx of (units (unkno wn) date) cholecystectomy unknown) (unknown) (no (unknown) (unknown) Hx of hernia (units (u nknown) date) repair unknown) (unknown) (no (unknown) (unknown) Hx of sinus (units (un known) date) surgery unknown) (unknown) (no (unknown) (unknown) Hypertension (units (u nknown) date) unknown) (unknown) (no (unknown) (unknown) IMPRESSION:? No (units (unknown) date) acute unknown) cardiopulmonary findings (unknown) (no (unknown) (unknown) INHIBITOR] (units (unk nown) date) unknown) (unknown) (no (unknown) (unknown) Imaging Data (units (u nknown) date) unknown) (unknown) (no (unknown) (unknown) Inhibitor (units (unkn own) date) MUSCLES unknown) (unknown) (no (unknown) (unknown) Initial Vital (units ( unknown) date) Signs unknown) (unknown) (no (unknown) (unknown) Initial Vital (units ( unknown) date) Signs: unknown) (unknown) (no (unknown) (unknown) Interpretation: (units (unknown) date) unknown) (unknown) (no (unknown) (unknown) Ischemic (units (unkno wn) date) cardiomyopathy unknown) (unknown) (no (unknown) (unknown) Lab Data (units (unkno wn) date) unknown) (unknown) (no (unknown) (unknown) Labs: (units (unkno wn) date) unknown) (unknown) (no (unknown) (unknown) Lactate (units (unkno wn) date) (0.7-2.1) mmol/L unknown) (unknown) (no (unknown) (unknown) Lactate 2.6 H (units (unknown) date) (0.7-2.1) mmol/L unknown) (unknown) (no (unknown) (unknown) Lactate (Lactic (units (unknown) date) Acid) Stat unknown) (unknown) (no (unknown) (unknown) Lower cervical (units (unknown) date) spine hardware.? unknown) No acute cardiopulmonary findings (unknown) (no (unknown) (unknown) Lungs and (units (unkn own) date) pleura:? Lungs are unknown) clear.? No pleural effusions or pneumothorax.? (unknown) (no (unknown) (unknown) Lymph # (Auto) (units (unknown) date) (6347-1063) /uL unknown) (unknown) (no (unknown) (unknown) Lymph # (Auto) (units (unknown) date) 1700 unknown) (6922-5780) /uL (unknown) (no (unknown) (unknown) Lymph % (Auto) (units (unknown) date) (25-40) % unknown) (unknown) (no (unknown) (unknown) Lymph % (Auto) (units (unknown) date) 23.5 L (25-40) unknown) % (unknown) (no (unknown) (unknown) MCH (26-34) (units (unknown) date) PG unknown) (unknown) (no (unknown) (unknown) MCH 32.0 (units (unkn own) date) (26-34) PG unknown) (unknown) (no (unknown) (unknown) MCHC (30-36) (units (unknown) date) % unknown) (unknown) (no (unknown) (unknown) MCHC 34.4 (units (unk nown) date) (30-36) % unknown) (unknown) (no (unknown) (unknown) MCV (80-100) (units (unknown) date) fL unknown) (unknown) (no (unknown) (unknown) MCV 93.2 (units (unkn own) date) (80-100) fL unknown) (unknown) (no (unknown) (unknown) Mediastinum:? (units ( unknown) date) Mediastinal unknown) contours appear normal.? Heart size is normal.? (unknown) (no (unknown) (unknown) Medical Decision (units (unknown) date) Making unknown) (unknown) (no (unknown) (unknown) Medical History (units (unknown) date) (Reviewed 11/19/21 unknown) @ 13:21 by Frida Pruitt [facility]) (unknown) (no (unknown) (unknown) Mode of arrival: (units (unknown) date) Wheelchair unknown) (unknown) (no (unknown) (unknown) [place] # (Auto) (units ( unknown) date) (0-900) /uL unknown) (unknown) (no (unknown) (unknown) [place] # (Auto) (units ( unknown) date) 700 (0-900) unknown) /uL (unknown) (no (unknown) (unknown) [place] % (Auto) (units ( unknown) date) (3-14) % unknown) (unknown) (no (unknown) (unknown) [place] % (Auto) (units ( unknown) date) 9.7 (3-14) % unknown) (unknown) (no (unknown) (unknown) Mother (units (unknown) date) Stroke unknown) (unknown) (no (unknown) (unknown) NT-Pro-B (units (unkno wn) date) Natriuret Pep unknown) (<450) pg/mL (unknown) (no (unknown) (unknown) NT-Pro-B (units (unkno wn) date) Natriuret Pep unknown) 190 (<450) pg/mL (unknown) (no (unknown) (unknown) Narcotic (units (unkno wn) date) dependence unknown) (unknown) (no (unknown) (unknown) Neck pain, (units (unk nown) date) chronic unknown) (unknown) (no (unknown) (unknown) Neut # (Auto) (units ( unknown) date) (5253-5381) /uL unknown) (unknown) (no (unknown) (unknown) Neut # (Auto) (units ( unknown) date) 4000 unknown) (4941-5005) /uL (unknown) (no (unknown) (unknown) Neut % (Auto) (units ( unknown) date) (50-75) % unknown) (unknown) (no (unknown) (unknown) Neut % (Auto) (units ( unknown) date) 55.2 (50-75) % unknown) (unknown) (no (unknown) (unknown) No Action (units (unkn own) date) unknown) (unknown) (no (unknown) (unknown) No acute ischemic (units (unknown) date) changes unknown) (unknown) (no (unknown) (unknown) Ordered: (units (unkno wn) date) unknown) (unknown) (no (unknown) (unknown) Orders (units (unkno wn) date) unknown) (unknown) (no (unknown) (unknown) Oxycodone/Acetamin (units (unknown) date) ophen unknown) (Oxycodone/Acetami nophen 5/325 Tablet) 2 tab PO NOW ONE (unknown) (no (unknown) (unknown) Patient History (units (unknown) date) unknown) (unknown) (no (unknown) (unknown) Patient: (units (unkno wn) date) Dominic Viveros unknown) MR#: M (unknown) (no (unknown) (unknown) Potassium (units (unkn own) date) (3.4-5.1) mmol/L unknown) (unknown) (no (unknown) (unknown) Potassium 4.6 (units (unknown) date) (3.4-5.1) mmol/L unknown) (unknown) (no (unknown) (unknown) Prescriptions: (units (unknown) date) unknown) (unknown) (no (unknown) (unknown) Procalcitonin (units ( unknown) date) Stat unknown) (unknown) (no (unknown) (unknown) Pulse Oximetry (units (unknown) date) 95 95 unknown) (unknown) (no (unknown) (unknown) Pulse Oximetry 96 (units (unknown) date) 94 96 unknown) (unknown) (no (unknown) (unknown) Pulse Oximetry 98 (units (unknown) date) 93 90 L unknown) (unknown) (no (unknown) (unknown) Pulse Rate 94 H (units (unknown) date) 78 unknown) (unknown) (no (unknown) (unknown) Pulse Rate 74 73 (units (unknown) date) 78 unknown) (unknown) (no (unknown) (unknown) Pulse Rate 86 56 (units (unknown) date) L unknown) (unknown) (no (unknown) (unknown) RDW (units (unkno wn) date) (11.6-14.8) % unknown) (unknown) (no (unknown) (unknown) RDW 13.6 (units (unkn own) date) (11.6-14.8) % unknown) (unknown) (no (unknown) (unknown) RT Consult Eval (units (unknown) date) and Treat Now unknown) (unknown) (no (unknown) (unknown) Referrals: (units (unk nown) date) unknown) (unknown) (no (unknown) (unknown) Related Data (units (u nknown) date) unknown) (unknown) (no (unknown) (unknown) Respiratory Panel (units (unknown) date) (Film Array) Stat unknown) (unknown) (no (unknown) (unknown) Respiratory Rate (units (unknown) date) 39 H 28 H unknown) (unknown) (no (unknown) (unknown) Respiratory Rate (units (unknown) date) 15 28 H 23 unknown) (unknown) (no (unknown) (unknown) Respiratory Rate (units (unknown) date) 30 H unknown) (unknown) (no (unknown) (unknown) Result diagrams: (units (unknown) date) unknown) (unknown) (no (unknown) (unknown) S/P CABG x 3 (units (u nknown) date) (-08/2007) unknown) (unknown) (no (unknown) (unknown) S/P cervical (units (u nknown) date) spinal fusion unknown) (unknown) (no (unknown) (unknown) S/P lumbar fusion (units (unknown) date) unknown) (unknown) (no (unknown) (unknown) Signed By: (units (unk nown) date) unknown) (unknown) (no (unknown) (unknown) Sinus rhythm with (units (unknown) date) marked sinus unknown) arrhythmia at a rate of 82 (unknown) (no (unknown) (unknown) Smoking Status: (units (unknown) date) Former smoker unknown) (unknown) (no (unknown) (unknown) Smoking Status: (units (unknown) date) Former smoker unknown) (unknown) (no (unknown) (unknown) Social History (units (unknown) date) (Reviewed 11/19/21 unknown) @ 13:21 by Frida Pruitt [facility]) (unknown) (no (unknown) (unknown) Sodium (units (unkno wn) date) (137-145) mmol/L unknown) (unknown) (no (unknown) (unknown) Sodium 140 (units (u nknown) date) (137-145) mmol/L unknown) (unknown) (no (unknown) (unknown) Sodium Chloride (units (unknown) date) (Normal Saline unknown) 0.9%) 1,000 mls @ 1,000 mls/hr IV BOLUS ONE (unknown) (no (unknown) (unknown) Source: patient (units (unknown) date) and family unknown) (unknown) (no (unknown) (unknown) Stated complaint: (units (unknown) date) Has pneumonia- unknown) told by to come (unknown) (no (unknown) (unknown) [id number] (units (unknown) date) Reductase AdvReac unknown) Mild WEAK Verified 11/28/21 15:33 (unknown) (no (unknown) (unknown) Substance Use (units ( unknown) date) Type: does not use unknown) (unknown) (no (unknown) (unknown) Sulfa (units (unkno wn) date) (Sulfonamide unknown) Allergy Mild RASH Verified 11/28/21 15:33 (unknown) (no (unknown) (unknown) Surgical History (units (unknown) date) (Reviewed 11/19/21 unknown) @ 13:21 by Frida Pruitt [employer]) (unknown) (no (unknown) (unknown) Surgical changes (units (unknown) date) and devices:? unknown) Midline sternal wires mediastinal vascular clips (unknown) (no (unknown) (unknown) Temperature (units (un known) date) unknown) (unknown) (no (unknown) (unknown) Temperature 98.3 (units (unknown) date) F unknown) (unknown) (no (unknown) (unknown) Time Seen by (units (u nknown) date) Provider: 11/28/21 unknown) 15:10 (unknown) (no (unknown) (unknown) Total Bilirubin (units (unknown) date) (0.2-1.3) mg/dL unknown) (unknown) (no (unknown) (unknown) Total Bilirubin (units (unknown) date) 0.6 (0.2-1.3) unknown) mg/dL (unknown) (no (unknown) (unknown) Total Protein (units ( unknown) date) (6.3-8.2) g/dL unknown) (unknown) (no (unknown) (unknown) Total Protein (units ( unknown) date) 7.6 (6.3-8.2) unknown) g/dL (unknown) (no (unknown) (unknown) Trop I [Troponin (units (unknown) date) I] Stat unknown) (unknown) (no (unknown) (unknown) Troponin I (units (unk nown) date) (0.01-0.034) unknown) ng/mL (unknown) (no (unknown) (unknown) Troponin I < (units (unknown) date) 0.012 unknown) (0.01-0.034) ng/mL (unknown) (no (unknown) (unknown) Ventricular (units (un known) date) bigeminy unknown) (unknown) (no (unknown) (unknown) Vital Signs (units (un known) date) unknown) (unknown) (no (unknown) (unknown) Vital signs: (units (u nknown) date) unknown) (unknown) (no (unknown) (unknown) XR chest 1V Stat (units (unknown) date) unknown) (unknown) (no (unknown) (unknown) [Embedded Image (units (unknown) date) Not Available] unknown) (unknown) (no (unknown) (unknown) [[id number] (units (unknown) date) REDUCTASE unknown) (unknown) (no (unknown) (unknown) [SULFA (units (unkno wn) date) (SULFONAMIDE unknown) (unknown) (no (unknown) (unknown) acetaminophen 300 (units (unknown) date) mg-codeine 30 mg 1 unknown) tab PO Q6HR PRN 10/08/21 10/08/21 (unknown) (no (unknown) (unknown) acetaminophen 325 (units (unknown) date) mg tablet 650 mg unknown) PO Q6H PRN #60 tab 11/06/20 (unknown) (no (unknown) (unknown) alcohol intake (units (unknown) date) frequency: unknown) holidays/special occasions only (unknown) (no (unknown) (unknown) alcohol intake: (units (unknown) date) current unknown) (unknown) (no (unknown) (unknown) appear (units (unkno wn) date) unknown) (unknown) (no (unknown) (unknown) benzonatate 100 (units (unknown) date) mg capsule 100 mg unknown) PO TID PRN #14 cap 03/05/21 (unknown) (no (unknown) (unknown) buprenorphine (units ( unknown) date) [BUPRENORPHINE] unknown) AdvReac Mild NAUSEA, Verified 11/28/21 15:33 (unknown) (no (unknown) (unknown) cefdinir 300 mg (units (unknown) date) capsule 300 mg PO unknown) BID #20 cap 10/09/21 (unknown) (no (unknown) (unknown) celecoxib (units (unkn own) date) [CELECOXIB] unknown) Allergy Mild SWELLING Verified 11/28/21 15:33 (unknown) (no (unknown) (unknown) cetirizine 10 mg (units (unknown) date) capsule (Zyrtec) unknown) 10 mg PO DAILY 05/22/19 10/08/21 (unknown) (no (unknown) (unknown) diazepam [From (units (unknown) date) Valium] AdvReac unknown) Confusion Verified 11/28/21 15:33 (unknown) (no (unknown) (unknown) diclofenac sodium (units (unknown) date) 1 % topical gel 2 unknown) g TOPICAL QID #100 g 11/19/21 (unknown) (no (unknown) (unknown) ferrous sulfate (units (unknown) date) 325 mg (65 mg 325 unknown) mg PO DAILY 10/19/19 10/08/21 (unknown) (no (unknown) (unknown) fluticasone (units (un known) date) propionate 50 1 unknown) spray INTRANASAL DAILY PRN #0 11/02/17 10/08/21 (unknown) (no (unknown) (unknown) furosemide 40 mg (units (unknown) date) tablet (Lasix) 40 unknown) mg PO DAILY 10/08/21 10/08/21 (unknown) (no (unknown) (unknown) glipizide 2.5 mg (units (unknown) date) tablet, extended unknown) 2.5 mg PO DAILY 10/08/21 10/08/21 (unknown) (no (unknown) (unknown) hand (units (unkno wn) date) unknown) (unknown) (no (unknown) (unknown) household (units (unkn own) date) members: spouse unknown) (unknown) (no (unknown) (unknown) hyoscyamine (units (un known) date) [HYOSCYAMINE] unknown) AdvReac Mild LEG Verified 11/28/21 15:33 (unknown) (no (unknown) (unknown) iron) (units (unkno wn) date) tablet,delayed unknown) release (unknown) (no (unknown) (unknown) latex [LATEX] (units ( unknown) date) Allergy Mild RASH unknown) Verified 11/28/21 15:33 (unknown) (no (unknown) (unknown) levalbuterol HCl (units (unknown) date) 1.25 mg/3 mL 3 ml unknown) INHALATION Q6H PRN 10/16/18 10/08/21 (unknown) (no (unknown) (unknown) levalbuterol (units (u nknown) date) tartrate 45 1 puff unknown) INHALATION Q4-6H PRN #15 06/22/18 (unknown) (no (unknown) (unknown) mcg/actuation (units ( unknown) date) aerosol inhaler unknown) gram (unknown) (no (unknown) (unknown) mcg/actuation (units ( unknown) date) nasal unknown) (unknown) (no (unknown) (unknown) meclizine 25 mg (units (unknown) date) tablet 25 mg PO unknown) QID PRN #30 tab 10/09/21 (unknown) (no (unknown) (unknown) methocarbamol 500 (units (unknown) date) mg tablet 500 mg unknown) PO Q8H PRN #14 tab 11/19/21 (unknown) (no (unknown) (unknown) metoprolol (units (unk nown) date) tartrate 100 mg unknown) tablet 100 mg PO BID 10/16/18 10/08/21 (unknown) (no (unknown) (unknown) mg tablet (units (unkn own) date) (Percocet) unknown) (unknown) (no (unknown) (unknown) multivitamin (units (u nknown) date) (Multiple unknown) Vitamins) 1 tab PO DAILY #0 12/20/17 10/08/21 (unknown) (no (unknown) (unknown) oxycodone 5 mg (units (unknown) date) tablet 10 mg PO unknown) Q4-5H PRN #60 tab 11/06/20 (unknown) (no (unknown) (unknown) oxycodone-acetami (units (unknown) date) nophen 5 mg-325 1 unknown) tab PO Q8H PRN #10 tab 11/19/21 (unknown) (no (unknown) (unknown) oxycodone-acetami (units (unknown) date) nophen 5 mg-325 1 unknown) tab PO TID PRN #10 tab 11/19/21 (unknown) (no (unknown) (unknown) prednisone 50 mg (units (unknown) date) tablet 50 mg PO unknown) DAILY #5 tab 11/19/21 (unknown) (no (unknown) (unknown) present.? (units (unkn own) date) unknown) (unknown) (no (unknown) (unknown) release 24 hr (units ( unknown) date) (Glucotrol XL) unknown) (unknown) (no (unknown) (unknown) solution for (units (u nknown) date) nebulization unknown) (unknown) (no (unknown) (unknown) spray,suspension (units (unknown) date) unknown) (unknown) (no (unknown) (unknown) substance use (units ( unknown) date) type: does not unknown) use (unknown) (no (unknown) (unknown) tablet (units (unkno wn) date) unknown) (unknown) (no (unknown) (unknown) trazodone 100 mg (units (unknown) date) tablet 400 tab PO unknown) BEDTIME 12/09/17 10/08/21 (unknown) (no (unknown) (unknown) unremarkable.? (units (unknown) date) unknown) (unknown) (no (unknown) (unknown) varenicline (units (un known) date) [VARENICLINE] unknown) AdvReac Severe Paranoia Verified 11/28/21 15:33 Result panel 17 (unknown) (no (unknown) (unknown) (no value) (units (unk nown) date) unknown) (unknown) (no (unknown) (unknown) Radiologist's (units ( unknown) date) Impression: unknown) (unknown) (no (unknown) (unknown) Date of Service: (units (unknown) date) 11/28/21 unknown) (unknown) (no (unknown) (unknown) (no value) (units (unk nown) date) unknown) (unknown) (no (unknown) (unknown) 11/28/21 15:05 (units (unknown) date) unknown) (unknown) (no (unknown) (unknown) 1 puff INHALATION (units (unknown) date) Q4-6H PRN (Reason: unknown) shortness of breath or wheezing) Qty: 15 (unknown) (no (unknown) (unknown) 1 spray (units (unkno wn) date) Intranasal DAILY unknown) PRN (Reason: Allergy Symptoms) Qty: 0 0RF (unknown) (no (unknown) (unknown) 1 tab PO DAILY (units (unknown) date) Qty: 0 0RF unknown) (unknown) (no (unknown) (unknown) 1 tab PO Q6HR PRN (units (unknown) date) (Reason: Back unknown) Pain) 0RF (unknown) (no (unknown) (unknown) 1 tab PO Q8H PRN (units (unknown) date) (Reason: pain) unknown) Qty: 10 0RF (unknown) (no (unknown) (unknown) 1 tab PO TID PRN (units (unknown) date) (Reason: pain) unknown) Qty: 10 0RF (unknown) (no (unknown) (unknown) 10 mg PO DAILY (units (unknown) date) 0RF unknown) (unknown) (no (unknown) (unknown) 10 mg PO Q4-5H (units (unknown) date) PRN (Reason: Pain, unknown) Severe (7-10)) Qty: 60 0RF (unknown) (no (unknown) (unknown) 100 mg PO BID 0RF (units (unknown) date) unknown) (unknown) (no (unknown) (unknown) 100 mg PO TID PRN (units (unknown) date) (Reason: cough) unknown) Qty: 14 0RF (unknown) (no (unknown) (unknown) 2 g topical QID (units (unknown) date) Qty: 100 0RF unknown) (unknown) (no (unknown) (unknown) 2.5 mg PO DAILY (units (unknown) date) 0RF unknown) (unknown) (no (unknown) (unknown) 25 mg PO QID PRN (units (unknown) date) (Reason: vertigo) unknown) Qty: 30 0RF (unknown) (no (unknown) (unknown) 3 ml Inhalation (units (unknown) date) Q6H PRN (Reason: unknown) Shortness Of Breath) 0RF (unknown) (no (unknown) (unknown) 300 mg PO BID (units ( unknown) date) Qty: 20 0RF unknown) (unknown) (no (unknown) (unknown) 325 mg PO DAILY (units (unknown) date) 0RF unknown) (unknown) (no (unknown) (unknown) 40 mg PO DAILY (units (unknown) date) 0RF unknown) (unknown) (no (unknown) (unknown) 400 tab PO (units (unk nown) date) BEDTIME 0RF unknown) (unknown) (no (unknown) (unknown) 50 mg PO DAILY (units (unknown) date) Qty: 5 0RF unknown) (unknown) (no (unknown) (unknown) 500 mg PO Q8H PRN (units (unknown) date) (Reason: muscle unknown) spasm) Qty: 14 0RF (unknown) (no (unknown) (unknown) 650 mg PO Q6H PRN (units (unknown) date) (Reason: pain) unknown) Qty: 60 0RF (unknown) (no (unknown) (unknown) ANXIETY, (units (unkno wn) date) unknown) (unknown) (no (unknown) (unknown) Allergies (units (unkn own) date) unknown) (unknown) (no (unknown) (unknown) DIZZINESS (units (unkn own) date) unknown) (unknown) (no (unknown) (unknown) Documented by: (units (unknown) date) [email or web address] unknown) (unknown) (no (unknown) (unknown) Documented by: (units (unknown) date) ZGELEYN unknown) (unknown) (no (unknown) (unknown) ED Orders (units (unkn own) date) unknown) (unknown) (no (unknown) (unknown) EXPOSURE (units (unkno wn) date) unknown) (unknown) (no (unknown) (unknown) Emergency Report (units (unknown) date) unknown) (unknown) (no (unknown) (unknown) Home Medications (units (unknown) date) unknown) (unknown) (no (unknown) (unknown) INHALE 1 VIAL PER (units (unknown) date) NEBULIZER EVERY 6 unknown) HOURS NEEDED (unknown) (no (unknown) (unknown) [facility] (units (unknown) date) [address] [place] [address] unknown) [place] [address] (unknown) (no (unknown) (unknown) JERKING, (units (unkno wn) date) unknown) (unknown) (no (unknown) (unknown) Lab Results (units (un known) date) unknown) (unknown) (no (unknown) (unknown) Label Comments: (units (unknown) date) unknown) (unknown) (no (unknown) (unknown) Last Admin: (units (un known) date) 11/28/21 15:14 unknown) Dose: 3 ml (unknown) (no (unknown) (unknown) Last Admin: (units (un known) date) 11/28/21 15:14 unknown) Dose: 5 mg (unknown) (no (unknown) (unknown) Last Admin: (units (un known) date) 11/28/21 16:12 unknown) Dose: 2 tab (unknown) (no (unknown) (unknown) MINUTES (units (unkno wn) date) unknown) (unknown) (no (unknown) (unknown) NAUSEA W/I (units (unk nown) date) unknown) (unknown) (no (unknown) (unknown) Previous Rx's (units ( unknown) date) unknown) (unknown) (no (unknown) (unknown) Rx Instructions: (units (unknown) date) unknown) (unknown) (no (unknown) (unknown) Spouse Milana (units (u nknown) date) called + reported unknown) patient not taking it regularly. (unknown) (no (unknown) (unknown) Stop: 11/28/21 (units (unknown) date) 15:11 unknown) (unknown) (no (unknown) (unknown) Stop: 11/28/21 (units (unknown) date) 16:02 unknown) (unknown) (no (unknown) (unknown) Stop: 11/28/21 (units (unknown) date) 17:35 unknown) (unknown) (no (unknown) (unknown) Vital Signs - 8 (units (unknown) date) hr unknown) (unknown) (no (unknown) (unknown) W/EXTENDED (units (unk nown) date) unknown) (unknown) (no (unknown) (unknown) apply to single (units (unknown) date) elbow, wrist or unknown) hand; for hand includes palm/fingers/back of (unknown) (no (unknown) (unknown) patient states (units (unknown) date) weaning off. unknown) (unknown) (no (unknown) (unknown) take 1 tablet by (units (unknown) date) mouth once daily unknown) (unknown) (no (unknown) (unknown) take 1 tablet by (units (unknown) date) mouth twice a day unknown) (unknown) (no (unknown) (unknown) (no value) (units (unk nown) date) unknown) (unknown) (no (unknown) (unknown) 11/28/21 11/28/21 (units (unknown) date) 11/28/21 unknown) Range/Units (unknown) (no (unknown) (unknown) 11/28/21 11/28/21 (units (unknown) date) Range/Units unknown) (unknown) (no (unknown) (unknown) 15:05 15:05 15:05 (units (unknown) date) unknown) (unknown) (no (unknown) (unknown) 16:36 16:36 (units (un known) date) unknown) (unknown) (no (unknown) (unknown) Zyrtec 10 mg (units (u nknown) date) Capsule unknown) (unknown) (no (unknown) (unknown) acetaminophen (units ( unknown) date) [Athenol] 325 mg unknown) tablet (unknown) (no (unknown) (unknown) acetaminophen-cod (units (unknown) date) eine 300-30 mg unknown) tablet (unknown) (no (unknown) (unknown) benzonatate (units (un known) date) [Tessalon Perles] unknown) 100 mg capsule (unknown) (no (unknown) (unknown) cefdinir 300 mg (units (unknown) date) capsule unknown) (unknown) (no (unknown) (unknown) diclofenac sodium (units (unknown) date) 1 % gel unknown) (unknown) (no (unknown) (unknown) ferrous sulfate (units (unknown) date) 325 mg (65 mg unknown) iron) tablet,delayed release (DR/EC) (unknown) (no (unknown) (unknown) fluticasone (units (un known) date) propionate 16 GM unknown) spray,suspension (unknown) (no (unknown) (unknown) furosemide (units (unk nown) date) [Lasix] 40 mg unknown) tablet (unknown) (no (unknown) (unknown) glipizide (units (unkn own) date) [Glucotrol XL] 2.5 unknown) mg tablet extended release 24 hr (unknown) (no (unknown) (unknown) levalbuterol HCl (units (unknown) date) 1.25 mg/3 mL unknown) solution for nebulization (unknown) (no (unknown) (unknown) levalbuterol (units (u nknown) date) tartrate [Xopenex unknown) HFA] 45 mcg/actuation HFA aerosol inhaler (unknown) (no (unknown) (unknown) meclizine 25 mg (units (unknown) date) tablet unknown) (unknown) (no (unknown) (unknown) methocarbamol 500 (units (unknown) date) mg tablet unknown) (unknown) (no (unknown) (unknown) metoprolol (units (unk nown) date) tartrate 100 mg unknown) tablet (unknown) (no (unknown) (unknown) multivitamin (units (u nknown) date) [Multiple unknown) Vitamins] 1 EACH tablet (unknown) (no (unknown) (unknown) oxycodone 5 mg (units (unknown) date) Tablet unknown) (unknown) (no (unknown) (unknown) oxycodone-acetami (units (unknown) date) nophen [Percocet] unknown) 5-325 mg tablet (unknown) (no (unknown) (unknown) prednisone 50 mg (units (unknown) date) tablet unknown) (unknown) (no (unknown) (unknown) trazodone 100 mg (units (unknown) date) tablet unknown) (unknown) (no (unknown) (unknown) 11/28/21 (units (unkno wn) date) unknown) (unknown) (no (unknown) (unknown) Medication (units (unk nown) date) Instructions unknown) Recorded (unknown) (no (unknown) (unknown) Medication (units (unk nown) date) Instructions unknown) Recorded Confirmed (unknown) (no (unknown) (unknown) (Athenol) (units (unkn own) date) unknown) (unknown) (no (unknown) (unknown) (Tessalon Perles) (units (unknown) date) unknown) (unknown) (no (unknown) (unknown) (Xopenex HFA) (units ( unknown) date) unknown) (unknown) (no (unknown) (unknown) [id number] (units (unkn own) date) unknown) (unknown) (no (unknown) (unknown) 11/28/21 13:51 (units (unknown) date) unknown) (unknown) (no (unknown) (unknown) 11/28/21 15:00 (units (unknown) date) unknown) (unknown) (no (unknown) (unknown) 11/28/21 15:04 (units (unknown) date) unknown) (unknown) (no (unknown) (unknown) 11/28/21 15:05 (units (unknown) date) unknown) (unknown) (no (unknown) (unknown) 11/28/21 16:36 (units (unknown) date) unknown) (unknown) (no (unknown) (unknown) 0RF (units (unkno wn) date) unknown) (unknown) (no (unknown) (unknown) 14:59 11/28/21 (units (unknown) date) unknown) (unknown) (no (unknown) (unknown) 15:00 11/28/21 (units (unknown) date) unknown) (unknown) (no (unknown) (unknown) 15:04 (units (unkno wn) date) unknown) (unknown) (no (unknown) (unknown) 15:08 11/28/21 (units (unknown) date) unknown) (unknown) (no (unknown) (unknown) 15:10 11/28/21 (units (unknown) date) unknown) (unknown) (no (unknown) (unknown) 15:15 (units (unkno wn) date) unknown) (unknown) (no (unknown) (unknown) 15:30 11/28/21 (units (unknown) date) unknown) (unknown) (no (unknown) (unknown) 16:00 11/28/21 (units (unknown) date) unknown) (unknown) (no (unknown) (unknown) 16:15 (units (unkno wn) date) unknown) (unknown) (no (unknown) (unknown) 76-year-old (units (un known) date) gentleman with a unknown) history of COPD, chronic atrial fibrillation not (unknown) (no (unknown) (unknown) ? (units (unkno wn) date) unknown) (unknown) (no (unknown) (unknown) ALT (<50) (units (u nknown) date) IU/L unknown) (unknown) (no (unknown) (unknown) ALT 29 (<50) (units (unknown) date) IU/L unknown) (unknown) (no (unknown) (unknown) ANTIBIOTICS)] (units ( unknown) date) unknown) (unknown) (no (unknown) (unknown) AST (17-59) (units (unknown) date) IU/L unknown) (unknown) (no (unknown) (unknown) AST 30 (units (unkno wn) date) (17-59) IU/L unknown) (unknown) (no (unknown) (unknown) Achalasia (units (unkn own) date) unknown) (unknown) (no (unknown) (unknown) Age/Sex: 76 / M (units (unknown) date) unknown) (unknown) (no (unknown) (unknown) Albumin (units (unkno wn) date) (3.5-5.0) g/dL unknown) (unknown) (no (unknown) (unknown) Albumin 4.4 (units ( unknown) date) (3.5-5.0) g/dL unknown) (unknown) (no (unknown) (unknown) Albumin/Globulin (units (unknown) date) Ratio (1.0-2.8) unknown) (unknown) (no (unknown) (unknown) Albumin/Globulin (units (unknown) date) Ratio 1.4 unknown) (1.0-2.8) (unknown) (no (unknown) (unknown) Albuterol (units (unkn own) date) (Albuterol 2.5 unknown) Mg/3 Ml Neb (Adult)) 5 mg INH NOW ONE (unknown) (no (unknown) (unknown) Albuterol/Ipratro (units (unknown) date) pium unknown) (Albuterol/Ipratro pium 3 Ml Ampul) 3 ml INH NOW ONE (unknown) (no (unknown) (unknown) Alkaline (units (unkno wn) date) Phosphatase unknown) (38-126) U/L (unknown) (no (unknown) (unknown) Alkaline (units (unkno wn) date) Phosphatase 68 unknown) (38-126) U/L (unknown) (no (unknown) (unknown) Allergy/AdvReac (units (unknown) date) Type Severity unknown) Reaction Status Date / Time (unknown) (no (unknown) (unknown) Anginal pain (units (u nknown) date) unknown) (unknown) (no (unknown) (unknown) Antibiotics) (units (u nknown) date) unknown) (unknown) (no (unknown) (unknown) Approved by: [facility] (unknown) date) Clifford Charles on unknown) 11/28/2021 at 16:02? (unknown) (no (unknown) (unknown) Asthma (units (unkno wn) date) unknown) (unknown) (no (unknown) (unknown) Atrial (units (unkno wn) date) fibrillation unknown) (unknown) (no (unknown) (unknown) BNP [NT-proBNP (units (unknown) date) (BNP-Adult 18+)] unknown) Stat (unknown) (no (unknown) (unknown) BUN (9-20) (units ( unknown) date) mg/dL unknown) (unknown) (no (unknown) (unknown) BUN 13 (9-20) (units (unknown) date) mg/dL unknown) (unknown) (no (unknown) (unknown) BUN/Creatinine (units (unknown) date) Ratio (6-22) unknown) (unknown) (no (unknown) (unknown) BUN/Creatinine (units (unknown) date) Ratio 17.1 unknown) (6-22) (unknown) (no (unknown) (unknown) Baso # (Auto) (units ( unknown) date) (0-100) /uL unknown) (unknown) (no (unknown) (unknown) Baso # (Auto) (units ( unknown) date) 100 (0-100) unknown) /uL (unknown) (no (unknown) (unknown) Baso % (Auto) (units ( unknown) date) (0-2) % unknown) (unknown) (no (unknown) (unknown) Baso % (Auto) (units ( unknown) date) 1.2 (0-2) % unknown) (unknown) (no (unknown) (unknown) Blood Pressure (units (unknown) date) 130/89 113/77 unknown) (unknown) (no (unknown) (unknown) Blood Pressure (units (unknown) date) 132/90 11/28/21 unknown) 14:59 (unknown) (no (unknown) (unknown) Blood Pressure (units (unknown) date) 132/90 153/84 H unknown) (unknown) (no (unknown) (unknown) Blood Pressure (units (unknown) date) 153/87 H 154/63 H unknown) (unknown) (no (unknown) (unknown) Bones and chest (units (unknown) date) wall:? No unknown) suspicious bony lesions.? Overlying soft tissues (unknown) (no (unknown) (unknown) COPD (chronic (units ( unknown) date) obstructive unknown) pulmonary disease) (unknown) (no (unknown) (unknown) Calcium (units (unkno wn) date) (8.4-10.2) mg/dL unknown) (unknown) (no (unknown) (unknown) Calcium 8.6 (units ( unknown) date) (8.4-10.2) mg/dL unknown) (unknown) (no (unknown) (unknown) Carbon Dioxide (units (unknown) date) (22-32) mmol/L unknown) (unknown) (no (unknown) (unknown) Carbon Dioxide (units (unknown) date) 26 (22-32) unknown) mmol/L (unknown) (no (unknown) (unknown) Cervical spinal (units (unknown) date) stenosis unknown) (unknown) (no (unknown) (unknown) Chest x-ray: (units (u n) date) unknown) (unknown) (no (unknown) (unknown) Chief complaint: (units (unknown) date) Shortness of unknown) Breath/Dyspnea (unknown) (no (unknown) (unknown) Chloride (units (o wn) date) (98-107) mmol/L unknown) (unknown) (no (unknown) (unknown) Chloride 104 (units (unknown) date) (98-107) mmol/L unknown) (unknown) (no (unknown) (unknown) Chronic (units (o wn) date) obstructive unknown) pulmonary disease (10/22/16) (unknown) (no (unknown) (unknown) Complete Blood (units (unknown) date) Count AUTO DIFF unknown) Stat (unknown) (no (unknown) (unknown) Comprehensive (units ( unknown) date) Metabolic Panel unknown) Stat (unknown) (no (unknown) (unknown) Coronary artery (units (unknown) date) disease unknown) (unknown) (no (unknown) (unknown) Course (units (o wn) date) unknown) (unknown) (no (unknown) (unknown) Creatinine (units (unk nown) date) (0.66-1.25) mg/dL unknown) (unknown) (no (unknown) (unknown) Creatinine 0.76 (units (unknown) date) (0.66-1.25) unknown) mg/dL (unknown) (no (unknown) (unknown) D Dimer Stat (units (u nknown) date) unknown) (unknown) (no (unknown) (unknown) D-Dimer (units (o wn) date) (<230) ng/mL unknown) (unknown) (no (unknown) (unknown) D-Dimer 232 H (units (unknown) date) (<230) ng/mL unknown) (unknown) (no (unknown) (unknown) : 1945 (units (unknown) date) Acct:[id number] unknown) (unknown) (no (unknown) (unknown) Kimmy Gomez, (units (unknown) date) MD [Primary Care unknown) Provider] - (unknown) (no (unknown) (unknown) Departure (units (unkn own) date) unknown) (unknown) (no (unknown) (unknown) Discharge Plan (units (unknown) date) unknown) (unknown) (no (unknown) (unknown) Discontinued (units (u nknown) date) Medications unknown) (unknown) (no (unknown) (unknown) ECG Data (units (unkno wn) date) unknown) (unknown) (no (unknown) (unknown) EKG-12 Lead Stat (units (unknown) date) unknown) (unknown) (no (unknown) (unknown) ER Physician: (units ( unknown) date) Sarita Tapia unknown) (unknown) (no (unknown) (unknown) Eos # (Auto) (units (u nknown) date) (0-450) /uL unknown) (unknown) (no (unknown) (unknown) Eos # (Auto) 800 (units (unknown) date) H (0-450) /uL unknown) (unknown) (no (unknown) (unknown) Eos % (Auto) (units (u nknown) date) (2-4) % unknown) (unknown) (no (unknown) (unknown) Eos % (Auto) (units (u nknown) date) 10.4 H (2-4) % unknown) (unknown) (no (unknown) (unknown) Estimated GFR (units ( unknown) date) (>60) mL/min unknown) (unknown) (no (unknown) (unknown) Estimated GFR > (units (unknown) date) 60 (>60) mL/min unknown) (unknown) (no (unknown) (unknown) Exam (units (unkno wn) date) unknown) (unknown) (no (unknown) (unknown) FINDINGS:? (units (unk nown) date) unknown) (unknown) (no (unknown) (unknown) Family History (units (unknown) date) (Reviewed 11/19/21 unknown) @ 13:21 by [facility]) (unknown) (no (unknown) (unknown) General (units (unkno wn) date) unknown) (unknown) (no (unknown) (unknown) GenericComposite[ (units (unknown) date) Plt Count unknown) (150-400) X10^3/uL ] (unknown) (no (unknown) (unknown) GenericComposite[ (units (unknown) date) Plt Count 236 unknown) (150-400) X10^3/uL ] (unknown) (no (unknown) (unknown) GenericComposite[ (units (unknown) date) RBC (4.5-5.9) unknown) X10^6/uL ] (unknown) (no (unknown) (unknown) GenericComposite[ (units (unknown) date) RBC 4.61 unknown) (4.5-5.9) X10^6/uL ] (unknown) (no (unknown) (unknown) GenericComposite[ (units (unknown) date) WBC (4.5-11.0) unknown) X10^3/uL ] (unknown) (no (unknown) (unknown) GenericComposite[ (units (unknown) date) WBC 7.3 unknown) (4.5-11.0) X10^3/uL ] (unknown) (no (unknown) (unknown) Globulin (units (unkno wn) date) (1.7-4.1) g/dL unknown) (unknown) (no (unknown) (unknown) Globulin 3.2 (units (unknown) date) (1.7-4.1) g/dL unknown) (unknown) (no (unknown) (unknown) Glucose (units (unkno wn) date) (80-110) mg/dL unknown) (unknown) (no (unknown) (unknown) Glucose 98 D (units (unknown) date) (80-110) mg/dL unknown) (unknown) (no (unknown) (unknown) H/O arthroscopic (units (unknown) date) knee surgery unknown) (11/14/17) (unknown) (no (unknown) (unknown) HPI - General (units ( unknown) date) Adult unknown) (unknown) (no (unknown) (unknown) HPI narrative: (units (unknown) date) unknown) (unknown) (no (unknown) (unknown) Hct (41-53) % (units (unknown) date) unknown) (unknown) (no (unknown) (unknown) Hct 42.9 (units (unkn own) date) (41-53) % unknown) (unknown) (no (unknown) (unknown) Hgb (units (unkno wn) date) (13.5-17.5) g/dL unknown) (unknown) (no (unknown) (unknown) Hgb 14.7 (units (unkn own) date) (13.5-17.5) g/dL unknown) (unknown) (no (unknown) (unknown) History of (units (unk nown) date) Present Illness unknown) (unknown) (no (unknown) (unknown) History of aortic (units (unknown) date) dissection unknown) () (unknown) (no (unknown) (unknown) History of (units (unk nown) date) arthroplasty of unknown) right knee (unknown) (no (unknown) (unknown) History of (units (unk nown) date) bilateral total unknown) hip arthroplasty (unknown) (no (unknown) (unknown) History of (units (unk nown) date) cardiac cath unknown) () (unknown) (no (unknown) (unknown) History of (units (unk nown) date) esophageal surgery unknown) (unknown) (no (unknown) (unknown) History of (units (unk nown) date) incision and unknown) drainage (-2016) (unknown) (no (unknown) (unknown) History of prior (units (unknown) date) ablation treatment unknown) () (unknown) (no (unknown) (unknown) History of (units (unk nown) date) surgery unknown) (unknown) (no (unknown) (unknown) Hx of (units (unkno wn) date) cholecystectomy unknown) (unknown) (no (unknown) (unknown) Hx of hernia (units (u nknown) date) repair unknown) (unknown) (no (unknown) (unknown) Hx of sinus (units (un known) date) surgery unknown) (unknown) (no (unknown) (unknown) Hypertension (units (u nknown) date) unknown) (unknown) (no (unknown) (unknown) IMPRESSION:? No (units (unknown) date) acute unknown) cardiopulmonary findings (unknown) (no (unknown) (unknown) INHIBITOR] (units (unk nown) date) unknown) (unknown) (no (unknown) (unknown) Imaging Data (units (u nknown) date) unknown) (unknown) (no (unknown) (unknown) Inhibitor (units (unkn own) date) MUSCLES unknown) (unknown) (no (unknown) (unknown) Initial Vital (units ( unknown) date) Signs unknown) (unknown) (no (unknown) (unknown) Initial Vital (units ( unknown) date) Signs: unknown) (unknown) (no (unknown) (unknown) Interpretation: (units (unknown) date) unknown) (unknown) (no (unknown) (unknown) Ischemic (units (unkno wn) date) cardiomyopathy unknown) (unknown) (no (unknown) (unknown) Lab Data (units (unkno wn) date) unknown) (unknown) (no (unknown) (unknown) Labs: (units (unkno wn) date) unknown) (unknown) (no (unknown) (unknown) Lactate (units (unkno wn) date) (0.7-2.1) mmol/L unknown) (unknown) (no (unknown) (unknown) Lactate 2.6 H (units (unknown) date) (0.7-2.1) mmol/L unknown) (unknown) (no (unknown) (unknown) Lactate (Lactic (units (unknown) date) Acid) Stat unknown) (unknown) (no (unknown) (unknown) Lower cervical (units (unknown) date) spine hardware.? unknown) No acute cardiopulmonary findings (unknown) (no (unknown) (unknown) Lungs and (units (unkn own) date) pleura:? Lungs are unknown) clear.? No pleural effusions or pneumothorax.? (unknown) (no (unknown) (unknown) Lymph # (Auto) (units (unknown) date) (7829-4957) /uL unknown) (unknown) (no (unknown) (unknown) Lymph # (Auto) (units (unknown) date) 1700 unknown) (6271-7056) /uL (unknown) (no (unknown) (unknown) Lymph % (Auto) (units (unknown) date) (25-40) % unknown) (unknown) (no (unknown) (unknown) Lymph % (Auto) (units (unknown) date) 23.5 L (25-40) unknown) % (unknown) (no (unknown) (unknown) MCH (26-34) (units (unknown) date) PG unknown) (unknown) (no (unknown) (unknown) MCH 32.0 (units (unkn own) date) (26-34) PG unknown) (unknown) (no (unknown) (unknown) MCHC (30-36) (units (unknown) date) % unknown) (unknown) (no (unknown) (unknown) MCHC 34.4 (units (unk nown) date) (30-36) % unknown) (unknown) (no (unknown) (unknown) MCV (80-100) (units (unknown) date) fL unknown) (unknown) (no (unknown) (unknown) MCV 93.2 (units (unkn own) date) (80-100) fL unknown) (unknown) (no (unknown) (unknown) Mediastinum:? (units ( unknown) date) Mediastinal unknown) contours appear normal.? Heart size is normal.? (unknown) (no (unknown) (unknown) Medical Decision (units (unknown) date) Making unknown) (unknown) (no (unknown) (unknown) Medical History (units (unknown) date) (Reviewed 11/19/21 unknown) @ 13:21 by Frida Pruitt [facility]) (unknown) (no (unknown) (unknown) Mode of arrival: (units (unknown) date) Wheelchair unknown) (unknown) (no (unknown) (unknown) [place] # (Auto) (units ( unknown) date) (0-900) /uL unknown) (unknown) (no (unknown) (unknown) [place] # (Auto) (units ( unknown) date) 700 (0-900) unknown) /uL (unknown) (no (unknown) (unknown) [place] % (Auto) (units ( unknown) date) (3-14) % unknown) (unknown) (no (unknown) (unknown) [place] % (Auto) (units ( unknown) date) 9.7 (3-14) % unknown) (unknown) (no (unknown) (unknown) Mother (units (unknown) date) Stroke unknown) (unknown) (no (unknown) (unknown) NT-Pro-B (units (unkno wn) date) Natriuret Pep unknown) (<450) pg/mL (unknown) (no (unknown) (unknown) NT-Pro-B (units (unkno wn) date) Natriuret Pep unknown) 190 (<450) pg/mL (unknown) (no (unknown) (unknown) Narcotic (units (unkno wn) date) dependence unknown) (unknown) (no (unknown) (unknown) Neck pain, (units (unk nown) date) chronic unknown) (unknown) (no (unknown) (unknown) Neut # (Auto) (units ( unknown) date) (8364-4647) /uL unknown) (unknown) (no (unknown) (unknown) Neut # (Auto) (units ( unknown) date) 4000 unknown) (4607-6877) /uL (unknown) (no (unknown) (unknown) Neut % (Auto) (units ( unknown) date) (50-75) % unknown) (unknown) (no (unknown) (unknown) Neut % (Auto) (units ( unknown) date) 55.2 (50-75) % unknown) (unknown) (no (unknown) (unknown) No Action (units (unkn own) date) unknown) (unknown) (no (unknown) (unknown) No acute ischemic (units (unknown) date) changes unknown) (unknown) (no (unknown) (unknown) Ordered: (units (unkno wn) date) unknown) (unknown) (no (unknown) (unknown) Orders (units (unkno wn) date) unknown) (unknown) (no (unknown) (unknown) Oxycodone/Acetamin (units (unknown) date) ophen unknown) (Oxycodone/Acetami nophen 5/325 Tablet) 2 tab PO NOW ONE (unknown) (no (unknown) (unknown) Patient History (units (unknown) date) unknown) (unknown) (no (unknown) (unknown) Patient: (units (unkno wn) date) Dominic Viveros unknown) MR#: M (unknown) (no (unknown) (unknown) Potassium (units (unkn own) date) (3.4-5.1) mmol/L unknown) (unknown) (no (unknown) (unknown) Potassium 4.6 (units (unknown) date) (3.4-5.1) mmol/L unknown) (unknown) (no (unknown) (unknown) Prescriptions: (units (unknown) date) unknown) (unknown) (no (unknown) (unknown) Procalcitonin (units ( unknown) date) Stat unknown) (unknown) (no (unknown) (unknown) Pulse Oximetry (units (unknown) date) 95 95 unknown) (unknown) (no (unknown) (unknown) Pulse Oximetry 96 (units (unknown) date) 94 96 unknown) (unknown) (no (unknown) (unknown) Pulse Oximetry 98 (units (unknown) date) 93 90 L unknown) (unknown) (no (unknown) (unknown) Pulse Rate 94 H (units (unknown) date) 78 unknown) (unknown) (no (unknown) (unknown) Pulse Rate 74 73 (units (unknown) date) 78 unknown) (unknown) (no (unknown) (unknown) Pulse Rate 86 56 (units (unknown) date) L unknown) (unknown) (no (unknown) (unknown) RDW (units (unkno wn) date) (11.6-14.8) % unknown) (unknown) (no (unknown) (unknown) RDW 13.6 (units (unkn own) date) (11.6-14.8) % unknown) (unknown) (no (unknown) (unknown) RT Consult Eval (units (unknown) date) and Treat Now unknown) (unknown) (no (unknown) (unknown) Referrals: (units (unk nown) date) unknown) (unknown) (no (unknown) (unknown) Related Data (units (u nknown) date) unknown) (unknown) (no (unknown) (unknown) Cole (units (unkno wn) date) unknown) (unknown) (no (unknown) (unknown) Respiratory Panel (units (unknown) date) (Film Array) Stat unknown) (unknown) (no (unknown) (unknown) Respiratory Rate (units (unknown) date) 39 H 28 H unknown) (unknown) (no (unknown) (unknown) Respiratory Rate (units (unknown) date) 15 28 H 23 unknown) (unknown) (no (unknown) (unknown) Respiratory Rate (units (unknown) date) 30 H unknown) (unknown) (no (unknown) (unknown) Result diagrams: (units (unknown) date) unknown) (unknown) (no (unknown) (unknown) S/P CABG x 3 (units (u nknown) date) () unknown) (unknown) (no (unknown) (unknown) S/P cervical (units (u nknown) date) spinal fusion unknown) (unknown) (no (unknown) (unknown) S/P lumbar fusion (units (unknown) date) unknown) (unknown) (no (unknown) (unknown) Signed By: (units (unk nown) date) unknown) (unknown) (no (unknown) (unknown) Sinus rhythm with (units (unknown) date) marked sinus unknown) arrhythmia at a rate of 82 (unknown) (no (unknown) (unknown) Smoking Status: (units (unknown) date) Former smoker unknown) (unknown) (no (unknown) (unknown) Smoking Status: (units (unknown) date) Former smoker unknown) (unknown) (no (unknown) (unknown) Social History (units (unknown) date) (Reviewed 11/19/21 unknown) @ 13:21 by Frida Pruitt [facility]) (unknown) (no (unknown) (unknown) Sodium (units (unkno wn) date) (137-145) mmol/L unknown) (unknown) (no (unknown) (unknown) Sodium 140 (units (u nknown) date) (137-145) mmol/L unknown) (unknown) (no (unknown) (unknown) Sodium Chloride (units (unknown) date) (Normal Saline unknown) 0.9%) 1,000 mls @ 1,000 mls/hr IV BOLUS ONE (unknown) (no (unknown) (unknown) Source: patient (units (unknown) date) and family unknown) (unknown) (no (unknown) (unknown) Stated complaint: (units (unknown) date) Has pneumonia- unknown) told by to come (unknown) (no (unknown) (unknown) [id number] (units (unknown) date) Reductase AdvReac unknown) Mild WEAK Verified 11/28/21 15:33 (unknown) (no (unknown) (unknown) Substance Use (units ( unknown) date) Type: does not use unknown) (unknown) (no (unknown) (unknown) Sulfa (units (unkno wn) date) (Sulfonamide unknown) Allergy Mild RASH Verified 11/28/21 15:33 (unknown) (no (unknown) (unknown) Surgical History (units (unknown) date) (Reviewed 11/19/21 unknown) @ 13:21 by Frida Pruitt [facility]) (unknown) (no (unknown) (unknown) Surgical changes (units (unknown) date) and devices:? unknown) Midline sternal wires mediastinal vascular clips (unknown) (no (unknown) (unknown) Temperature (units (un known) date) unknown) (unknown) (no (unknown) (unknown) Temperature 98.3 (units (unknown) date) F unknown) (unknown) (no (unknown) (unknown) Time Seen by (units (u nknown) date) Provider: 11/28/21 unknown) 15:10 (unknown) (no (unknown) (unknown) Total Bilirubin (units (unknown) date) (0.2-1.3) mg/dL unknown) (unknown) (no (unknown) (unknown) Total Bilirubin (units (unknown) date) 0.6 (0.2-1.3) unknown) mg/dL (unknown) (no (unknown) (unknown) Total Protein (units ( unknown) date) (6.3-8.2) g/dL unknown) (unknown) (no (unknown) (unknown) Total Protein (units ( unknown) date) 7.6 (6.3-8.2) unknown) g/dL (unknown) (no (unknown) (unknown) Trop I [Troponin (units (unknown) date) I] Stat unknown) (unknown) (no (unknown) (unknown) Troponin I (units (unk nown) date) (0.01-0.034) unknown) ng/mL (unknown) (no (unknown) (unknown) Troponin I < (units (unknown) date) 0.012 unknown) (0.01-0.034) ng/mL (unknown) (no (unknown) (unknown) Ventricular (units (un known) date) bigeminy unknown) (unknown) (no (unknown) (unknown) Vital Signs (units (un known) date) unknown) (unknown) (no (unknown) (unknown) Vital signs: (units (u nknown) date) unknown) (unknown) (no (unknown) (unknown) XR chest 1V Stat (units (unknown) date) unknown) (unknown) (no (unknown) (unknown) [Embedded Image (units (unknown) date) Not Available] unknown) (unknown) (no (unknown) (unknown) [[id number] (units (unknown) date) REDUCTASE unknown) (unknown) (no (unknown) (unknown) [SULFA (units (unkno wn) date) (SULFONAMIDE unknown) (unknown) (no (unknown) (unknown) acetaminophen 300 (units (unknown) date) mg-codeine 30 mg 1 unknown) tab PO Q6HR PRN 10/08/21 10/08/21 (unknown) (no (unknown) (unknown) acetaminophen 325 (units (unknown) date) mg tablet 650 mg unknown) PO Q6H PRN #60 tab 11/06/20 (unknown) (no (unknown) (unknown) alcohol intake (units (unknown) date) frequency: unknown) holidays/special occasions only (unknown) (no (unknown) (unknown) alcohol intake: (units (unknown) date) current unknown) (unknown) (no (unknown) (unknown) anticoagulated, (units (unknown) date) ischemic unknown) cardiomyopathy, history of mesenteric ischemia, (unknown) (no (unknown) (unknown) appear (units (unkno wn) date) unknown) (unknown) (no (unknown) (unknown) been using (units (unkn own) date) Flonase, leave unknown) albuterol, Zyrtec, Benadryl, Singulair and in the past (unknown) (no (unknown) (unknown) benzonatate 100 (units (unknown) date) mg capsule 100 mg unknown) PO TID PRN #14 cap 03/05/21 (unknown) (no (unknown) (unknown) buprenorphine (units ( unknown) date) [BUPRENORPHINE] unknown) AdvReac Mild NAUSEA, Verified 11/28/21 15:33 (unknown) (no (unknown) (unknown) cefdinir 300 mg (units (unknown) date) capsule 300 mg PO unknown) BID #20 cap 10/09/21 (unknown) (no (unknown) (unknown) celecoxib (units (unkn own) date) [CELECOXIB] unknown) Allergy Mild SWELLING Verified 11/28/21 15:33 (unknown) (no (unknown) (unknown) cetirizine 10 mg (units (unknown) date) capsule (Zyrtec) unknown) 10 mg PO DAILY 05/22/19 10/08/21 (unknown) (no (unknown) (unknown) diazepam [From (units (unknown) date) Valium] AdvReac unknown) Confusion Verified 11/28/21 15:33 (unknown) (no (unknown) (unknown) diclofenac sodium (units (unknown) date) 1 % topical gel 2 unknown) g TOPICAL QID #100 g 11/19/21 (unknown) (no (unknown) (unknown) ferrous sulfate (units (unknown) date) 325 mg (65 mg 325 unknown) mg PO DAILY 10/19/19 10/08/21 (unknown) (no (unknown) (unknown) fluticasone (units (un known) date) propionate 50 1 unknown) spray INTRANASAL DAILY PRN #0 11/02/17 10/08/21 (unknown) (no (unknown) (unknown) furosemide 40 mg (units (unknown) date) tablet (Lasix) 40 unknown) mg PO DAILY 10/08/21 10/08/21 (unknown) (no (unknown) (unknown) glipizide 2.5 mg (units (unknown) date) tablet, extended unknown) 2.5 mg PO DAILY 10/08/21 10/08/21 (unknown) (no (unknown) (unknown) hand (units (unkno wn) date) unknown) (unknown) (no (unknown) (unknown) has been (units (unkno wn) date) benefited with unknown) Augmentin and steroids. His densitometrist is (unknown) (no (unknown) (unknown) household (units (unkn own) date) members: spouse unknown) (unknown) (no (unknown) (unknown) hyoscyamine (units (un known) date) [HYOSCYAMINE] unknown) AdvReac Mild LEG Verified 11/28/21 15:33 (unknown) (no (unknown) (unknown) hypertension and (units (unknown) date) recently diagnosed unknown) with pneumonia in October of 2021. He has (unknown) (no (unknown) (unknown) iron) (units (unkno wn) date) tablet,delayed unknown) release (unknown) (no (unknown) (unknown) latex [LATEX] (units ( unknown) date) Allergy Mild RASH unknown) Verified 11/28/21 15:33 (unknown) (no (unknown) (unknown) levalbuterol HCl (units (unknown) date) 1.25 mg/3 mL 3 ml unknown) INHALATION Q6H PRN 10/16/18 10/08/21 (unknown) (no (unknown) (unknown) levalbuterol (units (u nknown) date) tartrate 45 1 puff unknown) INHALATION Q4-6H PRN #15 06/22/18 (unknown) (no (unknown) (unknown) mcg/actuation (units ( unknown) date) aerosol inhaler unknown) gram (unknown) (no (unknown) (unknown) mcg/actuation (units ( unknown) date) nasal unknown) (unknown) (no (unknown) (unknown) meclizine 25 mg (units (unknown) date) tablet 25 mg PO unknown) QID PRN #30 tab 10/09/21 (unknown) (no (unknown) (unknown) methocarbamol 500 (units (unknown) date) mg tablet 500 mg unknown) PO Q8H PRN #14 tab 11/19/21 (unknown) (no (unknown) (unknown) metoprolol (units (unk nown) date) tartrate 100 mg unknown) tablet 100 mg PO BID 10/16/18 10/08/21 (unknown) (no (unknown) (unknown) mg tablet (units (unkn own) date) (Percocet) unknown) (unknown) (no (unknown) (unknown) multivitamin (units (u nknown) date) (Multiple unknown) Vitamins) 1 tab PO DAILY #0 12/20/16 10/08/21 (unknown) (no (unknown) (unknown) oxycodone 5 mg (units (unknown) date) tablet 10 mg PO unknown) Q4-5H PRN #60 tab 11/06/20 (unknown) (no (unknown) (unknown) oxycodone-acetami (units (unknown) date) nophen 5 mg-325 1 unknown) tab PO Q8H PRN #10 tab 11/19/21 (unknown) (no (unknown) (unknown) oxycodone-acetami (units (unknown) date) nophen 5 mg-325 1 unknown) tab PO TID PRN #10 tab 11/19/21 (unknown) (no (unknown) (unknown) prednisone 50 mg (units (unknown) date) tablet 50 mg PO unknown) DAILY #5 tab 11/19/21 (unknown) (no (unknown) (unknown) present.? (units (unkn own) date) unknown) (unknown) (no (unknown) (unknown) release 24 hr (units ( unknown) date) (Glucotrol XL) unknown) (unknown) (no (unknown) (unknown) solution for (units (u nknown) date) nebulization unknown) (unknown) (no (unknown) (unknown) spray,suspension (units (unknown) date) unknown) (unknown) (no (unknown) (unknown) substance use (units ( unknown) date) type: does not unknown) use (unknown) (no (unknown) (unknown) tablet (units (unkno wn) date) unknown) (unknown) (no (unknown) (unknown) trazodone 100 mg (units (unknown) date) tablet 400 tab PO unknown) BEDTIME 12/09/17 10/08/21 (unknown) (no (unknown) (unknown) unremarkable.? (units (unknown) date) unknown) (unknown) (no (unknown) (unknown) varenicline (units (un known) date) [VARENICLINE] unknown) AdvReac Severe Paranoia Verified 11/28/21 15:33 Result panel 18 (unknown) (no date) (unknown) (unknown) 0.9 mmol/L (unkn own) Result panel 19 (unknown) (no date) (unknown) (unknown) Not Detected (units ( unknown) unknown) (unknown) (no date) (unknown) (unknown) Not Detected (units ( unknown) unknown) Result panel 20 (unknown) (no (unknown) (unknown) (no value) (units (unk nown) date) unknown) (unknown) (no (unknown) (unknown) Radiologist's (units ( unknown) date) Impression: unknown) (unknown) (no (unknown) (unknown) Date of Service: (units (unknown) date) 11/28/21 unknown) (unknown) (no (unknown) (unknown) (no value) (units (unk nown) date) unknown) (unknown) (no (unknown) (unknown) 11/28/21 15:05 (units (unknown) date) unknown) (unknown) (no (unknown) (unknown) 1 puff INHALATION (units (unknown) date) Q4-6H PRN (Reason: unknown) shortness of breath or wheezing) Qty: 15 (unknown) (no (unknown) (unknown) 1 spray Intranasal (units (unknown) date) DAILY PRN (Reason: unknown) Allergy Symptoms) Qty: 0 0RF (unknown) (no (unknown) (unknown) 1 tab PO DAILY Qty: (unit s (unknown) date) 0 0RF unknown) (unknown) (no (unknown) (unknown) 1 tab PO Q6HR PRN (units (unknown) date) (Reason: Back Pain) unknown) 0RF (unknown) (no (unknown) (unknown) 1 tab PO Q8H PRN (units (unknown) date) (Reason: pain) Qty: unknown) 10 0RF (unknown) (no (unknown) (unknown) 1 tab PO TID PRN (units (unknown) date) (Reason: pain) Qty: unknown) 10 0RF (unknown) (no (unknown) (unknown) 10 mg PO DAILY 0RF (units (unknown) date) unknown) (unknown) (no (unknown) (unknown) 10 mg PO Q4-5H PRN (units (unknown) date) (Reason: Pain, unknown) Severe (7-10)) Qty: 60 0RF (unknown) (no (unknown) (unknown) 100 mg PO BID 0RF (units (unknown) date) unknown) (unknown) (no (unknown) (unknown) 100 mg PO TID PRN (units (unknown) date) (Reason: cough) Qty: unknown) 14 0RF (unknown) (no (unknown) (unknown) 2 g topical QID (units (unknown) date) Qty: 100 0RF unknown) (unknown) (no (unknown) (unknown) 2.5 mg PO DAILY 0RF (unit s (unknown) date) unknown) (unknown) (no (unknown) (unknown) 25 mg PO QID PRN (units (unknown) date) (Reason: vertigo) unknown) Qty: 30 0RF (unknown) (no (unknown) (unknown) 3 ml Inhalation Q6H (unit s (unknown) date) PRN (Reason: unknown) Shortness Of Breath) 0RF (unknown) (no (unknown) (unknown) 300 mg PO BID Qty: (units (unknown) date) 20 0RF unknown) (unknown) (no (unknown) (unknown) 325 mg PO DAILY 0RF (unit s (unknown) date) unknown) (unknown) (no (unknown) (unknown) 40 mg PO DAILY 0RF (units (unknown) date) unknown) (unknown) (no (unknown) (unknown) 400 tab PO BEDTIME (units (unknown) date) 0RF unknown) (unknown) (no (unknown) (unknown) 50 mg PO DAILY Qty: (unit s (unknown) date) 5 0RF unknown) (unknown) (no (unknown) (unknown) 500 mg PO Q8H PRN (units (unknown) date) (Reason: muscle unknown) spasm) Qty: 14 0RF (unknown) (no (unknown) (unknown) 650 mg PO Q6H PRN (units (unknown) date) (Reason: pain) Qty: unknown) 60 0RF (unknown) (no (unknown) (unknown) ANXIETY, (units (unkno wn) date) unknown) (unknown) (no (unknown) (unknown) Allergies (units (unkn own) date) unknown) (unknown) (no (unknown) (unknown) DIZZINESS (units (unkn own) date) unknown) (unknown) (no (unknown) (unknown) Documented by: (units (unknown) date) unknown) (unknown) (no (unknown) (unknown) Documented by: (units (unknown) date) [email or web address] unknown) (unknown) (no (unknown) (unknown) Documented by: (units (unknown) date) ZGELEYN unknown) (unknown) (no (unknown) (unknown) ED Orders (units (unkn own) date) unknown) (unknown) (no (unknown) (unknown) EXPOSURE (units (unkno wn) date) unknown) (unknown) (no (unknown) (unknown) Emergency Report (units (unknown) date) unknown) (unknown) (no (unknown) (unknown) Home Medications (units (unknown) date) unknown) (unknown) (no (unknown) (unknown) INHALE 1 VIAL PER (units (unknown) date) NEBULIZER EVERY 6 unknown) HOURS NEEDED (unknown) (no (unknown) (unknown) [facility] (units (unknown) date) [address] [place] [address] unknown) [place] [address] (unknown) (no (unknown) (unknown) JERKING, (units (unkno wn) date) unknown) (unknown) (no (unknown) (unknown) Lab Results (units (un known) date) unknown) (unknown) (no (unknown) (unknown) Label Comments: (units (unknown) date) unknown) (unknown) (no (unknown) (unknown) Last Admin: (units (un known) date) 11/28/21 15:14 unknown) Dose: 3 ml (unknown) (no (unknown) (unknown) Last Admin: (units (un known) date) 11/28/21 15:14 unknown) Dose: 5 mg (unknown) (no (unknown) (unknown) Last Admin: (units (un known) date) 11/28/21 16:12 unknown) Dose: 2 tab (unknown) (no (unknown) (unknown) Last Admin: (units (un known) date) 11/28/21 18:04 Dose: unknown) 1,000 mls/hr (unknown) (no (unknown) (unknown) Last Admin: (units (un known) date) 11/28/21 18:08 Dose: unknown) 1,000 mls/hr (unknown) (no (unknown) (unknown) Last Admin: (units (un known) date) 11/28/21 18:09 Dose: unknown) 150 mls/hr (unknown) (no (unknown) (unknown) Last Admin: (units (un known) date) 11/28/21 18:10 Dose: unknown) 125 mg (unknown) (no (unknown) (unknown) MINUTES (units (unkno wn) date) unknown) (unknown) (no (unknown) (unknown) NAUSEA W/I (units (unk nown) date) unknown) (unknown) (no (unknown) (unknown) Previous Rx's (units ( unknown) date) unknown) (unknown) (no (unknown) (unknown) Rx Instructions: (units (unknown) date) unknown) (unknown) (no (unknown) (unknown) Spouse Milana called (unit s (unknown) date) + reported patient unknown) not taking it regularly. (unknown) (no (unknown) (unknown) Stop: 11/28/21 (units (unknown) date) 15:11 unknown) (unknown) (no (unknown) (unknown) Stop: 11/28/21 (units (unknown) date) 16:02 unknown) (unknown) (no (unknown) (unknown) Stop: 11/28/21 (units (unknown) date) 17:35 unknown) (unknown) (no (unknown) (unknown) Stop: 11/28/21 (units (unknown) date) 17:38 unknown) (unknown) (no (unknown) (unknown) Stop: 11/28/21 (units (unknown) date) 17:56 unknown) (unknown) (no (unknown) (unknown) Stop: 11/28/21 (units (unknown) date) 18:36 unknown) (unknown) (no (unknown) (unknown) Vital Signs - 8 hr (units (unknown) date) unknown) (unknown) (no (unknown) (unknown) W/EXTENDED (units (unk nown) date) unknown) (unknown) (no (unknown) (unknown) apply to single (units (unknown) date) elbow, wrist or unknown) hand; for hand includes palm/fingers/back of (unknown) (no (unknown) (unknown) patient states (units (unknown) date) weaning off. unknown) (unknown) (no (unknown) (unknown) take 1 tablet by (units (unknown) date) mouth once daily unknown) (unknown) (no (unknown) (unknown) take 1 tablet by (units (unknown) date) mouth twice a day unknown) (unknown) (no (unknown) (unknown) (no value) (units (unk nown) date) unknown) (unknown) (no (unknown) (unknown) 11/28/21 11/28/21 (units (unknown) date) 11/28/21 Range/Units unknown) (unknown) (no (unknown) (unknown) 11/28/21 (units (unkno wn) date) Range/Units unknown) (unknown) (no (unknown) (unknown) 13:51 15:05 15:05 (units (unknown) date) unknown) (unknown) (no (unknown) (unknown) 15:05 16:36 16:36 (units (unknown) date) unknown) (unknown) (no (unknown) (unknown) 17:22 (units (unkno wn) date) unknown) (unknown) (no (unknown) (unknown) Zyrtec 10 mg (units (u nknown) date) Capsule unknown) (unknown) (no (unknown) (unknown) acetaminophen (units ( unknown) date) [Athenol] 325 mg unknown) tablet (unknown) (no (unknown) (unknown) acetaminophen-codei (unit s (unknown) date) ne 300-30 mg tablet unknown) (unknown) (no (unknown) (unknown) benzonatate (units (un known) date) [Tessalon Perles] unknown) 100 mg capsule (unknown) (no (unknown) (unknown) cefdinir 300 mg (units (unknown) date) capsule unknown) (unknown) (no (unknown) (unknown) diclofenac sodium 1 (unit s (unknown) date) % gel unknown) (unknown) (no (unknown) (unknown) ferrous sulfate 325 (unit s (unknown) date) mg (65 mg iron) unknown) tablet,delayed release (DR/EC) (unknown) (no (unknown) (unknown) fluticasone (units (un known) date) propionate 16 GM unknown) spray,suspension (unknown) (no (unknown) (unknown) furosemide [Lasix] (units (unknown) date) 40 mg tablet unknown) (unknown) (no (unknown) (unknown) glipizide (units (unkn own) date) [Glucotrol XL] 2.5 unknown) mg tablet extended release 24 hr (unknown) (no (unknown) (unknown) levalbuterol HCl (units (unknown) date) 1.25 mg/3 mL unknown) solution for nebulization (unknown) (no (unknown) (unknown) levalbuterol (units (u nknown) date) tartrate [Xopenex unknown) HFA] 45 mcg/actuation HFA aerosol inhaler (unknown) (no (unknown) (unknown) meclizine 25 mg (units (unknown) date) tablet unknown) (unknown) (no (unknown) (unknown) methocarbamol 500 (units (unknown) date) mg tablet unknown) (unknown) (no (unknown) (unknown) metoprolol tartrate (unit s (unknown) date) 100 mg tablet unknown) (unknown) (no (unknown) (unknown) multivitamin (units (u nknown) date) [Multiple Vitamins] unknown) 1 EACH tablet (unknown) (no (unknown) (unknown) oxycodone 5 mg (units (unknown) date) Tablet unknown) (unknown) (no (unknown) (unknown) oxycodone-acetamino (unit s (unknown) date) phen [Percocet] unknown) 5-325 mg tablet (unknown) (no (unknown) (unknown) prednisone 50 mg (units (unknown) date) tablet unknown) (unknown) (no (unknown) (unknown) trazodone 100 mg (units (unknown) date) tablet unknown) (unknown) (no (unknown) (unknown) 11/28/21 (units (unkno wn) date) unknown) (unknown) (no (unknown) (unknown) Medication (units (unk nown) date) Instructions unknown) Recorded (unknown) (no (unknown) (unknown) Medication (units (unk nown) date) Instructions unknown) Recorded Confirmed (unknown) (no (unknown) (unknown) (Athenol) (units (unkn own) date) unknown) (unknown) (no (unknown) (unknown) (Tessalon Perles) (units (unknown) date) unknown) (unknown) (no (unknown) (unknown) (Xopenex HFA) (units ( unknown) date) unknown) (unknown) (no (unknown) (unknown) [phone] (units (unkn own) date) unknown) (unknown) (no (unknown) (unknown) 11/28/21 13:51 (units (unknown) date) unknown) (unknown) (no (unknown) (unknown) 11/28/21 15:00 (units (unknown) date) unknown) (unknown) (no (unknown) (unknown) 11/28/21 15:04 (units (unknown) date) unknown) (unknown) (no (unknown) (unknown) 11/28/21 15:05 (units (unknown) date) unknown) (unknown) (no (unknown) (unknown) 11/28/21 16:36 (units (unknown) date) unknown) (unknown) (no (unknown) (unknown) 0RF (units (unkno wn) date) unknown) (unknown) (no (unknown) (unknown) 14:59 11/28/21 (units (unknown) date) unknown) (unknown) (no (unknown) (unknown) 15:00 11/28/21 (units (unknown) date) unknown) (unknown) (no (unknown) (unknown) 15:04 (units (unkno wn) date) unknown) (unknown) (no (unknown) (unknown) 15:08 11/28/21 (units (unknown) date) unknown) (unknown) (no (unknown) (unknown) 15:10 11/28/21 (units (unknown) date) unknown) (unknown) (no (unknown) (unknown) 15:15 (units (unkno wn) date) unknown) (unknown) (no (unknown) (unknown) 15:30 11/28/21 (units (unknown) date) unknown) (unknown) (no (unknown) (unknown) 16:00 11/28/21 (units (unknown) date) unknown) (unknown) (no (unknown) (unknown) 16:15 (units (unkno wn) date) unknown) (unknown) (no (unknown) (unknown) 16:30 11/28/21 (units (unknown) date) unknown) (unknown) (no (unknown) (unknown) 16:45 11/28/21 (units (unknown) date) unknown) (unknown) (no (unknown) (unknown) 17:16 (units (unkno wn) date) unknown) (unknown) (no (unknown) (unknown) 17:30 (units (unkno wn) date) unknown) (unknown) (no (unknown) (unknown) 76-year-old (units (un known) date) gentleman with a unknown) history of COPD, chronic atrial fibrillation not (unknown) (no (unknown) (unknown) ? (units (unkno wn) date) unknown) (unknown) (no (unknown) (unknown) ALT (<50) IU/L (unit s (unknown) date) unknown) (unknown) (no (unknown) (unknown) ALT 29 (<50) (units (unknown) date) IU/L unknown) (unknown) (no (unknown) (unknown) ALT (<50) IU/L (units (unknown) date) unknown) (unknown) (no (unknown) (unknown) ANTIBIOTICS)] (units ( unknown) date) unknown) (unknown) (no (unknown) (unknown) AST (17-59) (units (unknown) date) IU/L unknown) (unknown) (no (unknown) (unknown) AST 30 (17-59) (units (unknown) date) IU/L unknown) (unknown) (no (unknown) (unknown) AST (17-59) IU/L (unit s (unknown) date) unknown) (unknown) (no (unknown) (unknown) Achalasia (units (unkn own) date) unknown) (unknown) (no (unknown) (unknown) Adenovirus (PCR) (units (unknown) date) (Not Detect) unknown) (unknown) (no (unknown) (unknown) Adenovirus (PCR) (units (unknown) date) (Not Detect) unknown) (unknown) (no (unknown) (unknown) Adenovirus (PCR) (units (unknown) date) Not detected (Not unknown) Detect) (unknown) (no (unknown) (unknown) Age/Sex: 76 / M (units (unknown) date) unknown) (unknown) (no (unknown) (unknown) Albumin (units (unkno wn) date) (3.5-5.0) g/dL unknown) (unknown) (no (unknown) (unknown) Albumin 4.4 (units (unknown) date) (3.5-5.0) g/dL unknown) (unknown) (no (unknown) (unknown) Albumin (3.5-5.0) (unit s (unknown) date) g/dL unknown) (unknown) (no (unknown) (unknown) Albumin/Globulin (units (unknown) date) Ratio (1.0-2.8) unknown) (unknown) (no (unknown) (unknown) Albumin/Globulin (units (unknown) date) Ratio 1.4 unknown) (1.0-2.8) (unknown) (no (unknown) (unknown) Albumin/Globulin (units (unknown) date) Ratio (1.0-2.8) unknown) (unknown) (no (unknown) (unknown) Albuterol (units (unkn own) date) (Albuterol 2.5 Mg/3 unknown) Ml Neb (Adult)) 5 mg INH NOW ONE (unknown) (no (unknown) (unknown) Albuterol/Ipratropi (unit s (unknown) date) um unknown) (Albuterol/Ipratropi um 3 Ml Ampul) 3 ml INH NOW ONE (unknown) (no (unknown) (unknown) Alkaline (units (unkno wn) date) Phosphatase unknown) (38-126) U/L (unknown) (no (unknown) (unknown) Alkaline (units (unkno wn) date) Phosphatase 68 unknown) (38-126) U/L (unknown) (no (unknown) (unknown) Alkaline (units (unkno wn) date) Phosphatase unknown) (38-126) U/L (unknown) (no (unknown) (unknown) Allergy/AdvReac (units (unknown) date) Type Severity unknown) Reaction Status Date / Time (unknown) (no (unknown) (unknown) Anginal pain (units (u nknown) date) unknown) (unknown) (no (unknown) (unknown) Antibiotics) (units (u nknown) date) unknown) (unknown) (no (unknown) (unknown) Approved by: Lexx (units (unknown) date) Clifford Charles on unknown) 11/28/2021 at 16:02? (unknown) (no (unknown) (unknown) Asthma (units (unkno wn) date) unknown) (unknown) (no (unknown) (unknown) Atrial fibrillation (unit s (unknown) date) unknown) (unknown) (no (unknown) (unknown) B. pertussis DNA (units (unknown) date) (PCR) (Not unknown) Detecte) (unknown) (no (unknown) (unknown) B. pertussis DNA (units (unknown) date) (PCR) (Not unknown) Detecte) (unknown) (no (unknown) (unknown) B. pertussis DNA (units (unknown) date) (PCR) Not detected unknown) (Not Detecte) (unknown) (no (unknown) (unknown) B.parapertussis DNA (unit s (unknown) date) PCR (Not unknown) Detecte) (unknown) (no (unknown) (unknown) B.parapertussis DNA (unit s (unknown) date) PCR (Not Detecte) unknown) (unknown) (no (unknown) (unknown) B.parapertussis DNA (unit s (unknown) date) PCR Not detected unknown) (Not Detecte) (unknown) (no (unknown) (unknown) BNP [NT-proBNP (units (unknown) date) (BNP-Adult 18+)] unknown) Stat (unknown) (no (unknown) (unknown) BUN (9-20) (units (unknown) date) mg/dL unknown) (unknown) (no (unknown) (unknown) BUN 13 (9-20) (units (unknown) date) mg/dL unknown) (unknown) (no (unknown) (unknown) BUN (9-20) mg/dL (unit s (unknown) date) unknown) (unknown) (no (unknown) (unknown) BUN/Creatinine (units (unknown) date) Ratio (6-22) unknown) (unknown) (no (unknown) (unknown) BUN/Creatinine (units (unknown) date) Ratio 17.1 unknown) (6-22) (unknown) (no (unknown) (unknown) BUN/Creatinine (units (unknown) date) Ratio (6-22) unknown) (unknown) (no (unknown) (unknown) Baso # (Auto) (units ( unknown) date) (0-100) /uL unknown) (unknown) (no (unknown) (unknown) Baso # (Auto) (units ( unknown) date) (0-100) /uL unknown) (unknown) (no (unknown) (unknown) Baso # (Auto) 100 (unit s (unknown) date) (0-100) /uL unknown) (unknown) (no (unknown) (unknown) Baso % (Auto) (units ( unknown) date) (0-2) % unknown) (unknown) (no (unknown) (unknown) Baso % (Auto) (units ( unknown) date) (0-2) % unknown) (unknown) (no (unknown) (unknown) Baso % (Auto) 1.2 (unit s (unknown) date) (0-2) % unknown) (unknown) (no (unknown) (unknown) Blood Pressure (units (unknown) date) unknown) (unknown) (no (unknown) (unknown) Blood Pressure (units (unknown) date) 130/89 113/77 unknown) (unknown) (no (unknown) (unknown) Blood Pressure (units (unknown) date) 132/90 11/28/21 unknown) 14:59 (unknown) (no (unknown) (unknown) Blood Pressure (units (unknown) date) 113/74 127/82 unknown) (unknown) (no (unknown) (unknown) Blood Pressure (units (unknown) date) 132/90 153/84 H unknown) (unknown) (no (unknown) (unknown) Blood Pressure (units (unknown) date) 153/87 H 154/63 H unknown) (unknown) (no (unknown) (unknown) Bones and chest (units (unknown) date) wall:? No suspicious unknown) bony lesions.? Overlying soft tissues (unknown) (no (unknown) (unknown) COPD (chronic (units ( unknown) date) obstructive unknown) pulmonary disease) (unknown) (no (unknown) (unknown) Calcium (units (unkno wn) date) (8.4-10.2) mg/dL unknown) (unknown) (no (unknown) (unknown) Calcium 8.6 (units (unknown) date) (8.4-10.2) mg/dL unknown) (unknown) (no (unknown) (unknown) Calcium (units (unkno wn) date) (8.4-10.2) mg/dL unknown) (unknown) (no (unknown) (unknown) Carbon Dioxide (units (unknown) date) (22-32) mmol/L unknown) (unknown) (no (unknown) (unknown) Carbon Dioxide (units (unknown) date) 26 (22-32) mmol/L unknown) (unknown) (no (unknown) (unknown) Carbon Dioxide (units (unknown) date) (22-32) mmol/L unknown) (unknown) (no (unknown) (unknown) Cervical spinal (units (unknown) date) stenosis unknown) (unknown) (no (unknown) (unknown) Chest x-ray: (units (u nknown) date) unknown) (unknown) (no (unknown) (unknown) Chief complaint: (units (unknown) date) Shortness of unknown) Breath/Dyspnea (unknown) (no (unknown) (unknown) Chlamy pneumoniae (units (unknown) date) PCR (Not Detect) unknown) (unknown) (no (unknown) (unknown) Chlamy pneumoniae (units (unknown) date) PCR (Not Detect) unknown) (unknown) (no (unknown) (unknown) Chlamy pneumoniae (units (unknown) date) PCR Not detected unknown) (Not Detect) (unknown) (no (unknown) (unknown) Chloride (units (unkno wn) date) (98-107) mmol/L unknown) (unknown) (no (unknown) (unknown) Chloride 104 (units (unknown) date) (98-107) mmol/L unknown) (unknown) (no (unknown) (unknown) Chloride (98-107) (unit s (unknown) date) mmol/L unknown) (unknown) (no (unknown) (unknown) Chronic obstructive (unit s (unknown) date) pulmonary disease unknown) (10/22/16) (unknown) (no (unknown) (unknown) Complete Blood (units (unknown) date) Count AUTO DIFF Stat unknown) (unknown) (no (unknown) (unknown) Comprehensive (units ( unknown) date) Metabolic Panel Stat unknown) (unknown) (no (unknown) (unknown) Coronary artery (units (unknown) date) disease unknown) (unknown) (no (unknown) (unknown) Coronavirus 229E (units (unknown) date) (PCR) (Not unknown) Detect) (unknown) (no (unknown) (unknown) Coronavirus 229E (units (unknown) date) (PCR) (Not Detect) unknown) (unknown) (no (unknown) (unknown) Coronavirus 229E (units (unknown) date) (PCR) Not detected unknown) (Not Detect) (unknown) (no (unknown) (unknown) Coronavirus HKU1 (units (unknown) date) (PCR) (Not unknown) Detect) (unknown) (no (unknown) (unknown) Coronavirus HKU1 (units (unknown) date) (PCR) (Not Detect) unknown) (unknown) (no (unknown) (unknown) Coronavirus HKU1 (units (unknown) date) (PCR) Not detected unknown) (Not Detect) (unknown) (no (unknown) (unknown) Coronavirus NL63 (units (unknown) date) (PCR) (Not unknown) Detect) (unknown) (no (unknown) (unknown) Coronavirus NL63 (units (unknown) date) (PCR) (Not Detect) unknown) (unknown) (no (unknown) (unknown) Coronavirus NL63 (units (unknown) date) (PCR) Not detected unknown) (Not Detect) (unknown) (no (unknown) (unknown) Coronavirus OC43 (units (unknown) date) (PCR) (Not unknown) Detect) (unknown) (no (unknown) (unknown) Coronavirus OC43 (units (unknown) date) (PCR) (Not Detect) unknown) (unknown) (no (unknown) (unknown) Coronavirus OC43 (units (unknown) date) (PCR) Not detected unknown) (Not Detect) (unknown) (no (unknown) (unknown) Course (units (unkno wn) date) unknown) (unknown) (no (unknown) (unknown) Creatinine (units (unk nown) date) (0.66-1.25) mg/dL unknown) (unknown) (no (unknown) (unknown) Creatinine 0.76 (units (unknown) date) (0.66-1.25) mg/dL unknown) (unknown) (no (unknown) (unknown) Creatinine (units (unk nown) date) (0.66-1.25) mg/dL unknown) (unknown) (no (unknown) (unknown) D Dimer Stat (units (u nknown) date) unknown) (unknown) (no (unknown) (unknown) D-Dimer (<230) (units (unknown) date) ng/mL unknown) (unknown) (no (unknown) (unknown) D-Dimer (<230) (units (unknown) date) ng/mL unknown) (unknown) (no (unknown) (unknown) D-Dimer 232 H (units (unknown) date) (<230) ng/mL unknown) (unknown) (no (unknown) (unknown) : 1945 (units (unknown) date) Acct:[id number] unknown) (unknown) (no (unknown) (unknown) Kimmy Gomez MD (units (unknown) date) [Primary Care unknown) Provider] - (unknown) (no (unknown) (unknown) Departure (units (unkn own) date) unknown) (unknown) (no (unknown) (unknown) Discharge Plan (units (unknown) date) unknown) (unknown) (no (unknown) (unknown) Discontinued (units (u nknown) date) Medications unknown) (unknown) (no (unknown) (unknown) ECG Data (units (unkno wn) date) unknown) (unknown) (no (unknown) (unknown) EKG-12 Lead Stat (units (unknown) date) unknown) (unknown) (no (unknown) (unknown) ER Physician: (units ( unknown) date) Sarita Tapia MD unknown) (unknown) (no (unknown) (unknown) Entero/Rhino (PCR) (units (unknown) date) (Not Detect) unknown) (unknown) (no (unknown) (unknown) Entero/Rhino (PCR) (units (unknown) date) (Not Detect) unknown) (unknown) (no (unknown) (unknown) Entero/Rhino (PCR) (units (unknown) date) Not detected (Not unknown) Detect) (unknown) (no (unknown) (unknown) Eos # (Auto) (units (u nknown) date) (0-450) /uL unknown) (unknown) (no (unknown) (unknown) Eos # (Auto) (units (u nknown) date) (0-450) /uL unknown) (unknown) (no (unknown) (unknown) Eos # (Auto) 800 (units (unknown) date) H (0-450) /uL unknown) (unknown) (no (unknown) (unknown) Eos % (Auto) (units (u nknown) date) (2-4) % unknown) (unknown) (no (unknown) (unknown) Eos % (Auto) (units (u nknown) date) (2-4) % unknown) (unknown) (no (unknown) (unknown) Eos % (Auto) 10.4 (unit s (unknown) date) H (2-4) % unknown) (unknown) (no (unknown) (unknown) Estimated GFR (units ( unknown) date) (>60) mL/min unknown) (unknown) (no (unknown) (unknown) Estimated GFR > (units (unknown) date) 60 (>60) mL/min unknown) (unknown) (no (unknown) (unknown) Estimated GFR (units ( unknown) date) (>60) mL/min unknown) (unknown) (no (unknown) (unknown) Exam (units (unkno wn) date) unknown) (unknown) (no (unknown) (unknown) FINDINGS:? (units (unk nown) date) unknown) (unknown) (no (unknown) (unknown) Family History (units (unknown) date) (Reviewed 11/19/21 @ unknown) 13:21 by [facility]) (unknown) (no (unknown) (unknown) General (units (unkno wn) date) unknown) (unknown) (no (unknown) (unknown) GenericComposite[Pl (unit s (unknown) date) t Count unknown) (150-400) X10^3/uL ] (unknown) (no (unknown) (unknown) GenericComposite[Pl (unit s (unknown) date) t Count (150-400) unknown) X10^3/uL ] (unknown) (no (unknown) (unknown) GenericComposite[Pl (unit s (unknown) date) t Count 236 unknown) (150-400) X10^3/uL ] (unknown) (no (unknown) (unknown) GenericComposite[RB (unit s (unknown) date) C (4.5-5.9) unknown) X10^6/uL ] (unknown) (no (unknown) (unknown) GenericComposite[RB (unit s (unknown) date) C (4.5-5.9) unknown) X10^6/uL ] (unknown) (no (unknown) (unknown) GenericComposite[RB (unit s (unknown) date) C 4.61 (4.5-5.9) unknown) X10^6/uL ] (unknown) (no (unknown) (unknown) GenericComposite[WB (unit s (unknown) date) C (4.5-11.0) unknown) X10^3/uL ] (unknown) (no (unknown) (unknown) GenericComposite[WB (unit s (unknown) date) C (4.5-11.0) unknown) X10^3/uL ] (unknown) (no (unknown) (unknown) GenericComposite[WB (unit s (unknown) date) C 7.3 (4.5-11.0) unknown) X10^3/uL ] (unknown) (no (unknown) (unknown) Globulin (units (unkno wn) date) (1.7-4.1) g/dL unknown) (unknown) (no (unknown) (unknown) Globulin 3.2 (units (unknown) date) (1.7-4.1) g/dL unknown) (unknown) (no (unknown) (unknown) Globulin (units (unkno wn) date) (1.7-4.1) g/dL unknown) (unknown) (no (unknown) (unknown) Glucose (units (unkno wn) date) (80-110) mg/dL unknown) (unknown) (no (unknown) (unknown) Glucose 98 D (units (unknown) date) (80-110) mg/dL unknown) (unknown) (no (unknown) (unknown) Glucose (80-110) (units (unknown) date) mg/dL unknown) (unknown) (no (unknown) (unknown) H/O arthroscopic (units (unknown) date) knee surgery unknown) (11/14/17) (unknown) (no (unknown) (unknown) HPI - General Adult (unit s (unknown) date) unknown) (unknown) (no (unknown) (unknown) HPI narrative: (units (unknown) date) unknown) (unknown) (no (unknown) (unknown) Hct (41-53) % (units (unknown) date) unknown) (unknown) (no (unknown) (unknown) Hct (41-53) % (units (unknown) date) unknown) (unknown) (no (unknown) (unknown) Hct 42.9 (units (unk nown) date) (41-53) % unknown) (unknown) (no (unknown) (unknown) Hgb (13.5-17.5) (unit s (unknown) date) g/dL unknown) (unknown) (no (unknown) (unknown) Hgb (13.5-17.5) (units (unknown) date) g/dL unknown) (unknown) (no (unknown) (unknown) Hgb 14.7 (units (unk nown) date) (13.5-17.5) g/dL unknown) (unknown) (no (unknown) (unknown) History of Present (units (unknown) date) Illness unknown) (unknown) (no (unknown) (unknown) History of aortic (units (unknown) date) dissection unknown) () (unknown) (no (unknown) (unknown) History of (units (unk nown) date) arthroplasty of unknown) right knee (unknown) (no (unknown) (unknown) 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 (unknown) (no (unknown) (unknown) History of cardiac (units (unknown) date) cath () unknown) (unknown) (no (unknown) (unknown) History of (units (unk nown) date) esophageal surgery unknown) (unknown) (no (unknown) (unknown) History of incision (unit s (unknown) date) and drainage () unknown) (unknown) (no (unknown) (unknown) History of prior (units (unknown) date) ablation treatment unknown) () (unknown) (no (unknown) (unknown) History of surgery (units (unknown) date) unknown) (unknown) (no (unknown) (unknown) Human Metapneumovir (unit s (unknown) date) PCR (Not Detect) unknown) (unknown) (no (unknown) (unknown) Human Metapneumovir (unit s (unknown) date) PCR (Not Detect) unknown) (unknown) (no (unknown) (unknown) Human Metapneumovir (unit s (unknown) date) PCR Not detected unknown) (Not Detect) (unknown) (no (unknown) (unknown) Hx of (units (unkno wn) date) cholecystectomy unknown) (unknown) (no (unknown) (unknown) Hx of hernia repair (unit s (unknown) date) unknown) (unknown) (no (unknown) (unknown) Hx of sinus surgery (unit s (unknown) date) unknown) (unknown) (no (unknown) (unknown) Hypertension (units (u nknown) date) unknown) (unknown) (no (unknown) (unknown) IMPRESSION:? No (units (unknown) date) acute unknown) cardiopulmonary findings (unknown) (no (unknown) (unknown) INHIBITOR] (units (unk nown) date) unknown) (unknown) (no (unknown) (unknown) Imaging Data (units (u nknown) date) unknown) (unknown) (no (unknown) (unknown) Influenza Type A (units (unknown) date) (PCR) (Not unknown) Detect) (unknown) (no (unknown) (unknown) Influenza Type A (units (unknown) date) (PCR) (Not Detect) unknown) (unknown) (no (unknown) (unknown) Influenza Type A (units (unknown) date) (PCR) Not detected unknown) (Not Detect) (unknown) (no (unknown) (unknown) Influenza Type B (units (unknown) date) (PCR) (Not unknown) Detect) (unknown) (no (unknown) (unknown) Influenza Type B (units (unknown) date) (PCR) (Not Detect) unknown) (unknown) (no (unknown) (unknown) Influenza Type B (units (unknown) date) (PCR) Not detected unknown) (Not Detect) (unknown) (no (unknown) (unknown) Inhibitor MUSCLES (unit s (unknown) date) unknown) (unknown) (no (unknown) (unknown) Initial Vital Signs (unit s (unknown) date) unknown) (unknown) (no (unknown) (unknown) Initial Vital (units ( unknown) date) Signs: unknown) (unknown) (no (unknown) (unknown) Interpretation: (units (unknown) date) unknown) (unknown) (no (unknown) (unknown) Ischemic (units (unkno wn) date) cardiomyopathy unknown) (unknown) (no (unknown) (unknown) Lab Data (units (unkno wn) date) unknown) (unknown) (no (unknown) (unknown) Labs: (units (unkno wn) date) unknown) (unknown) (no (unknown) (unknown) Lactate (units (unkno wn) date) (0.7-2.1) mmol/L unknown) (unknown) (no (unknown) (unknown) Lactate 0.9 (units (u nknown) date) (0.7-2.1) mmol/L unknown) (unknown) (no (unknown) (unknown) Lactate 2.6 H (units (unknown) date) (0.7-2.1) mmol/L unknown) (unknown) (no (unknown) (unknown) Lactate (Lactic (units (unknown) date) Acid) Stat unknown) (unknown) (no (unknown) (unknown) Lower cervical (units (unknown) date) spine hardware.? No unknown) acute cardiopulmonary findings (unknown) (no (unknown) (unknown) Lungs and pleura:? (units (unknown) date) Lungs are clear.? No unknown) pleural effusions or pneumothorax.? (unknown) (no (unknown) (unknown) Lymph # (Auto) (units (unknown) date) ([id number]) /uL unknown) (unknown) (no (unknown) (unknown) Lymph # (Auto) (units (unknown) date) (0051-5032) /uL unknown) (unknown) (no (unknown) (unknown) Lymph # (Auto) (units (unknown) date) 1700 (0195-0979) unknown) /uL (unknown) (no (unknown) (unknown) Lymph % (Auto) (units (unknown) date) (25-40) % unknown) (unknown) (no (unknown) (unknown) Lymph % (Auto) (units (unknown) date) (25-40) % unknown) (unknown) (no (unknown) (unknown) Lymph % (Auto) (units (unknown) date) 23.5 L (25-40) % unknown) (unknown) (no (unknown) (unknown) M. pneumoniae (PCR) (unit s (unknown) date) (Not Detect) unknown) (unknown) (no (unknown) (unknown) M. pneumoniae (PCR) (unit s (unknown) date) (Not Detect) unknown) (unknown) (no (unknown) (unknown) M. pneumoniae (PCR) (unit s (unknown) date) Not detected unknown) (Not Detect) (unknown) (no (unknown) (unknown) MCH (26-34) PG (unit s (unknown) date) unknown) (unknown) (no (unknown) (unknown) MCH (26-34) PG (units (unknown) date) unknown) (unknown) (no (unknown) (unknown) MCH 32.0 (units (unk nown) date) (26-34) PG unknown) (unknown) (no (unknown) (unknown) MCHC (30-36) % (unit s (unknown) date) unknown) (unknown) (no (unknown) (unknown) MCHC (30-36) % (units (unknown) date) unknown) (unknown) (no (unknown) (unknown) MCHC 34.4 (units (un known) date) (30-36) % unknown) (unknown) (no (unknown) (unknown) MCV (80-100) (units (unknown) date) fL unknown) (unknown) (no (unknown) (unknown) MCV (80-100) fL (units (unknown) date) unknown) (unknown) (no (unknown) (unknown) MCV 93.2 (units (unk nown) date) (80-100) fL unknown) (unknown) (no (unknown) (unknown) Magnesium Sulfate (units (unknown) date) (Magnesium Sulfate) unknown) 2 gm in 50 mls @ 150 mls/hr IV NOW ONE (unknown) (no (unknown) (unknown) Mediastinum:? (units ( unknown) date) Mediastinal contours unknown) appear normal.? Heart size is normal.? (unknown) (no (unknown) (unknown) Medical Decision (units (unknown) date) Making unknown) (unknown) (no (unknown) (unknown) Medical History (units (unknown) date) (Reviewed 11/19/21 @ unknown) 13:21 by Frida Pruitt [facility]) (unknown) (no (unknown) (unknown) Methylprednisolone (units (unknown) date) (Methylprednisolone unknown) 125 Mg/2 Ml Vial) 125 mg IV NOW ONE (unknown) (no (unknown) (unknown) Mode of arrival: (units (unknown) date) Wheelchair unknown) (unknown) (no (unknown) (unknown) [place] # (Auto) (units ( unknown) date) (0-900) /uL unknown) (unknown) (no (unknown) (unknown) [place] # (Auto) (units ( unknown) date) (0-900) /uL unknown) (unknown) (no (unknown) (unknown) [place] # (Auto) 700 (unit s (unknown) date) (0-900) /uL unknown) (unknown) (no (unknown) (unknown) [place] % (Auto) (units ( unknown) date) (3-14) % unknown) (unknown) (no (unknown) (unknown) [place] % (Auto) (units ( unknown) date) (3-14) % unknown) (unknown) (no (unknown) (unknown) [place] % (Auto) 9.7 (unit s (unknown) date) (3-14) % unknown) (unknown) (no (unknown) (unknown) Mother (units (unknown) date) Stroke unknown) (unknown) (no (unknown) (unknown) NT-Pro-B Natriuret (units (unknown) date) Pep (<450) unknown) pg/mL (unknown) (no (unknown) (unknown) NT-Pro-B Natriuret (units (unknown) date) Pep 190 (<450) unknown) pg/mL (unknown) (no (unknown) (unknown) NT-Pro-B Natriuret (units (unknown) date) Pep (<450) pg/mL unknown) (unknown) (no (unknown) (unknown) Narcotic dependence (unit s (unknown) date) unknown) (unknown) (no (unknown) (unknown) Neck pain, chronic (units (unknown) date) unknown) (unknown) (no (unknown) (unknown) Neut # (Auto) (units ( unknown) date) (8387-7181) /uL unknown) (unknown) (no (unknown) (unknown) Neut # (Auto) (units ( unknown) date) (0865-8338) /uL unknown) (unknown) (no (unknown) (unknown) Neut # (Auto) (units ( unknown) date) 4000 (6634-3522) unknown) /uL (unknown) (no (unknown) (unknown) Neut % (Auto) (units ( unknown) date) (50-75) % unknown) (unknown) (no (unknown) (unknown) Neut % (Auto) (units ( unknown) date) (50-75) % unknown) (unknown) (no (unknown) (unknown) Neut % (Auto) (units ( unknown) date) 55.2 (50-75) % unknown) (unknown) (no (unknown) (unknown) No Action (units (unkn own) date) unknown) (unknown) (no (unknown) (unknown) No acute ischemic (units (unknown) date) changes unknown) (unknown) (no (unknown) (unknown) Ordered: (units (unkno wn) date) unknown) (unknown) (no (unknown) (unknown) Orders (units (unkno wn) date) unknown) (unknown) (no (unknown) (unknown) Oxycodone/Acetaminop (unit s (unknown) date) hen unknown) (Oxycodone/Acetamino phen 5/325 Tablet) 2 tab PO NOW ONE (unknown) (no (unknown) (unknown) Parainfluenza 1 (units (unknown) date) (PCR) (Not unknown) Detect) (unknown) (no (unknown) (unknown) Parainfluenza 1 (units (unknown) date) (PCR) (Not Detect) unknown) (unknown) (no (unknown) (unknown) Parainfluenza 1 (units (unknown) date) (PCR) Not detected unknown) (Not Detect) (unknown) (no (unknown) (unknown) Parainfluenza 2 (units (unknown) date) (PCR) (Not unknown) Detect) (unknown) (no (unknown) (unknown) Parainfluenza 2 (units (unknown) date) (PCR) (Not Detect) unknown) (unknown) (no (unknown) (unknown) Parainfluenza 2 (units (unknown) date) (PCR) Not detected unknown) (Not Detect) (unknown) (no (unknown) (unknown) Parainfluenza 3 (units (unknown) date) (PCR) (Not unknown) Detect) (unknown) (no (unknown) (unknown) Parainfluenza 3 (units (unknown) date) (PCR) (Not Detect) unknown) (unknown) (no (unknown) (unknown) Parainfluenza 3 (units (unknown) date) (PCR) Not detected unknown) (Not Detect) (unknown) (no (unknown) (unknown) Parainfluenza 4 (units (unknown) date) (PCR) (Not unknown) Detect) (unknown) (no (unknown) (unknown) Parainfluenza 4 (units (unknown) date) (PCR) (Not Detect) unknown) (unknown) (no (unknown) (unknown) Parainfluenza 4 (units (unknown) date) (PCR) Not detected unknown) (Not Detect) (unknown) (no (unknown) (unknown) Patient History (units (unknown) date) unknown) (unknown) (no (unknown) (unknown) Patient: (units (unkno wn) date) Dominic Viveros unknown) MR#: M (unknown) (no (unknown) (unknown) Potassium (units (unkn own) date) (3.4-5.1) mmol/L unknown) (unknown) (no (unknown) (unknown) Potassium 4.6 (units (unknown) date) (3.4-5.1) mmol/L unknown) (unknown) (no (unknown) (unknown) Potassium (units (unkn own) date) (3.4-5.1) mmol/L unknown) (unknown) (no (unknown) (unknown) Prescriptions: (units (unknown) date) unknown) (unknown) (no (unknown) (unknown) Procalcitonin (units ( unknown) date) (<0.5) ng/mL unknown) (unknown) (no (unknown) (unknown) Procalcitonin (units ( unknown) date) 0.04 (<0.5) ng/mL unknown) (unknown) (no (unknown) (unknown) Procalcitonin (units ( unknown) date) (<0.5) ng/mL unknown) (unknown) (no (unknown) (unknown) Procalcitonin Stat (units (unknown) date) unknown) (unknown) (no (unknown) (unknown) Pulse Oximetry 95 (units (unknown) date) 95 unknown) (unknown) (no (unknown) (unknown) Pulse Oximetry 93 (units (unknown) date) unknown) (unknown) (no (unknown) (unknown) Pulse Oximetry 96 (units (unknown) date) 93 94 unknown) (unknown) (no (unknown) (unknown) Pulse Oximetry 96 (units (unknown) date) 94 96 unknown) (unknown) (no (unknown) (unknown) Pulse Oximetry 98 (units (unknown) date) 93 90 L unknown) (unknown) (no (unknown) (unknown) Pulse Rate 94 H 78 (unit s (unknown) date) unknown) (unknown) (no (unknown) (unknown) Pulse Rate 55 L (units (unknown) date) unknown) (unknown) (no (unknown) (unknown) Pulse Rate 68 69 65 (unit s (unknown) date) unknown) (unknown) (no (unknown) (unknown) Pulse Rate 74 73 78 (unit s (unknown) date) unknown) (unknown) (no (unknown) (unknown) Pulse Rate 86 56 L (unit s (unknown) date) unknown) (unknown) (no (unknown) (unknown) RDW (11.6-14.8) (unit s (unknown) date) % unknown) (unknown) (no (unknown) (unknown) RDW (11.6-14.8) (units (unknown) date) % unknown) (unknown) (no (unknown) (unknown) RDW 13.6 (units (unk nown) date) (11.6-14.8) % unknown) (unknown) (no (unknown) (unknown) RSV (PCR) (Not (units (unknown) date) Detect) unknown) (unknown) (no (unknown) (unknown) RSV (PCR) (Not (units (unknown) date) Detect) unknown) (unknown) (no (unknown) (unknown) RSV (PCR) Not (units (unknown) date) detected (Not unknown) Detect) (unknown) (no (unknown) (unknown) RT Consult Eval and (unit s (unknown) date) Treat Now unknown) (unknown) (no (unknown) (unknown) Referrals: (units (unk nown) date) unknown) (unknown) (no (unknown) (unknown) Related Data (units (u nknown) date) unknown) (unknown) (no (unknown) (unknown) Cole. He is (units (unknown) date) concerned that his unknown) cough is continuing to keep him awake and (unknown) (no (unknown) (unknown) Respiratory Panel (units (unknown) date) (Film Array) Stat unknown) (unknown) (no (unknown) (unknown) Respiratory Rate (units (unknown) date) unknown) (unknown) (no (unknown) (unknown) Respiratory Rate (units (unknown) date) 39 H 28 H unknown) (unknown) (no (unknown) (unknown) Respiratory Rate 15 (unit s (unknown) date) 28 H 23 unknown) (unknown) (no (unknown) (unknown) Respiratory Rate 20 (unit s (unknown) date) unknown) (unknown) (no (unknown) (unknown) Respiratory Rate 30 (unit s (unknown) date) H unknown) (unknown) (no (unknown) (unknown) Result diagrams: (units (unknown) date) unknown) (unknown) (no (unknown) (unknown) S/P CABG x 3 (units (u nknown) date) () unknown) (unknown) (no (unknown) (unknown) S/P cervical spinal (unit s (unknown) date) fusion unknown) (unknown) (no (unknown) (unknown) S/P lumbar fusion (units (unknown) date) unknown) (unknown) (no (unknown) (unknown) SARS-CoV-2 (PCR) (units (unknown) date) (Not Detecte) unknown) (unknown) (no (unknown) (unknown) SARS-CoV-2 (PCR) (units (unknown) date) (Not Detecte) unknown) (unknown) (no (unknown) (unknown) SARS-CoV-2 (PCR) (units (unknown) date) Not detected (Not unknown) Detecte) (unknown) (no (unknown) (unknown) Signed By: (units (unk nown) date) unknown) (unknown) (no (unknown) (unknown) Sinus rhythm with (units (unknown) date) marked sinus unknown) arrhythmia at a rate of 82 (unknown) (no (unknown) (unknown) Smoking Status: (units (unknown) date) Former smoker unknown) (unknown) (no (unknown) (unknown) Smoking Status: (units (unknown) date) Former smoker unknown) (unknown) (no (unknown) (unknown) Social History (units (unknown) date) (Reviewed 11/19/21 @ unknown) 13:21 by [facility]) (unknown) (no (unknown) (unknown) Sodium (units (unkno wn) date) (137-145) mmol/L unknown) (unknown) (no (unknown) (unknown) Sodium 140 (units ( unknown) date) (137-145) mmol/L unknown) (unknown) (no (unknown) (unknown) Sodium (137-145) (units (unknown) date) mmol/L unknown) (unknown) (no (unknown) (unknown) Sodium Chloride (units (unknown) date) (Normal Saline 0.9%) unknown) 1,000 mls @ 1,000 mls/hr IV BOLUS ONE (unknown) (no (unknown) (unknown) Source: patient and (unit s (unknown) date) family unknown) (unknown) (no (unknown) (unknown) Stated complaint: (units (unknown) date) Has pneumonia- told unknown) by to come (unknown) (no (unknown) (unknown) [id number] (units (unknown) date) Reductase AdvReac unknown) Mild WEAK Verified 11/28/21 15:33 (unknown) (no (unknown) (unknown) Substance Use Type: (unit s (unknown) date) does not use unknown) (unknown) (no (unknown) (unknown) Sulfa (Sulfonamide (units (unknown) date) Allergy Mild RASH unknown) Verified 11/28/21 15:33 (unknown) (no (unknown) (unknown) Surgical History (units (unknown) date) (Reviewed 11/19/21 @ unknown) 13:21 by Frida Pruitt [facility]) (unknown) (no (unknown) (unknown) Surgical changes (units (unknown) date) and devices:? unknown) Midline sternal wires mediastinal vascular clips (unknown) (no (unknown) (unknown) Temperature (units (un known) date) unknown) (unknown) (no (unknown) (unknown) Temperature (units (un known) date) unknown) (unknown) (no (unknown) (unknown) Temperature 98.3 F (units (unknown) date) unknown) (unknown) (no (unknown) (unknown) Time Seen by (units (u nknown) date) Provider: 11/28/21 unknown) 15:10 (unknown) (no (unknown) (unknown) Total Bilirubin (units (unknown) date) (0.2-1.3) mg/dL unknown) (unknown) (no (unknown) (unknown) Total Bilirubin (units (unknown) date) 0.6 (0.2-1.3) unknown) mg/dL (unknown) (no (unknown) (unknown) Total Bilirubin (units (unknown) date) (0.2-1.3) mg/dL unknown) (unknown) (no (unknown) (unknown) Total Protein (units ( unknown) date) (6.3-8.2) g/dL unknown) (unknown) (no (unknown) (unknown) Total Protein (units ( unknown) date) 7.6 (6.3-8.2) g/dL unknown) (unknown) (no (unknown) (unknown) Total Protein (units ( unknown) date) (6.3-8.2) g/dL unknown) (unknown) (no (unknown) (unknown) Trop I [Troponin I] (unit s (unknown) date) Stat unknown) (unknown) (no (unknown) (unknown) Troponin I (units (unk nown) date) (0.01-0.034) ng/mL unknown) (unknown) (no (unknown) (unknown) Troponin I < (units (unknown) date) 0.012 (0.01-0.034) unknown) ng/mL (unknown) (no (unknown) (unknown) Troponin I (units (unk nown) date) (0.01-0.034) ng/mL unknown) (unknown) (no (unknown) (unknown) Ventricular (units (un known) date) bigeminy unknown) (unknown) (no (unknown) (unknown) Vital Signs (units (un known) date) unknown) (unknown) (no (unknown) (unknown) Vital signs: (units (u nknown) date) unknown) (unknown) (no (unknown) (unknown) XR chest 1V Stat (units (unknown) date) unknown) (unknown) (no (unknown) (unknown) [Embedded Image Not (unit s (unknown) date) Available] unknown) (unknown) (no (unknown) (unknown) [[id number] (units (unknown) date) REDUCTASE unknown) (unknown) (no (unknown) (unknown) [SULFA (SULFONAMIDE (unit s (unknown) date) unknown) (unknown) (no (unknown) (unknown) acetaminophen 300 (units (unknown) date) mg-codeine 30 mg 1 unknown) tab PO Q6HR PRN 10/08/21 10/08/21 (unknown) (no (unknown) (unknown) acetaminophen 325 (units (unknown) date) mg tablet 650 mg PO unknown) Q6H PRN #60 tab 11/06/20 (unknown) (no (unknown) (unknown) alcohol intake (units (unknown) date) frequency: unknown) holidays/special occasions only (unknown) (no (unknown) (unknown) alcohol intake: (units (unknown) date) current unknown) (unknown) (no (unknown) (unknown) anticoagulated, (units (unknown) date) ischemic unknown) cardiomyopathy, history of mesenteric ischemia, (unknown) (no (unknown) (unknown) appear (units (unkno wn) date) unknown) (unknown) (no (unknown) (unknown) been using Flonase, (unit s (unknown) date) levalbuterol, unknown) Zyrtec, Benadryl, Singulair and in the past (unknown) (no (unknown) (unknown) benzonatate 100 mg (units (unknown) date) capsule 100 mg PO unknown) TID PRN #14 cap 03/05/21 (unknown) (no (unknown) (unknown) buprenorphine (units ( unknown) date) [BUPRENORPHINE] unknown) AdvReac Mild NAUSEA, Verified 11/28/21 15:33 (unknown) (no (unknown) (unknown) cefdinir 300 mg (units (unknown) date) capsule 300 mg PO unknown) BID #20 cap 10/09/21 (unknown) (no (unknown) (unknown) celecoxib (units (unkn own) date) [CELECOXIB] Allergy unknown) Mild SWELLING Verified 11/28/21 15:33 (unknown) (no (unknown) (unknown) cetirizine 10 mg (units (unknown) date) capsule (Zyrtec) 10 unknown) mg PO DAILY 05/22/19 10/08/21 (unknown) (no (unknown) (unknown) coughing he does (units (unknown) date) note occasional unknown) headaches. He has had no nausea, vomiting or (unknown) (no (unknown) (unknown) diarrhea. No (units ( unknown) date) abdominal pain. unknown) (unknown) (no (unknown) (unknown) diazepam [From (units (unknown) date) Valium] AdvReac unknown) Confusion Verified 11/28/21 15:33 (unknown) (no (unknown) (unknown) diclofenac sodium 1 (unit s (unknown) date) % topical gel 2 g unknown) TOPICAL QID #100 g 11/19/21 (unknown) (no (unknown) (unknown) ferrous sulfate 325 (unit s (unknown) date) mg (65 mg 325 mg PO unknown) DAILY 10/19/19 10/08/21 (unknown) (no (unknown) (unknown) fluticasone (units (un known) date) propionate 50 1 unknown) spray INTRANASAL DAILY PRN #0 11/02/17 10/08/21 (unknown) (no (unknown) (unknown) furosemide 40 mg (units (unknown) date) tablet (Lasix) 40 mg unknown) PO DAILY 10/08/21 10/08/21 (unknown) (no (unknown) (unknown) glipizide 2.5 mg (units (unknown) date) tablet, extended 2.5 unknown) mg PO DAILY 10/08/21 10/08/21 (unknown) (no (unknown) (unknown) hand (units (unkno wn) date) unknown) (unknown) (no (unknown) (unknown) has been benefited (units (unknown) date) with Augmentin and unknown) steroids. His densitometrist is (unknown) (no (unknown) (unknown) household members: (units (unknown) date) spouse unknown) (unknown) (no (unknown) (unknown) hyoscyamine (units (un known) date) [HYOSCYAMINE] unknown) AdvReac Mild LEG Verified 11/28/21 15:33 (unknown) (no (unknown) (unknown) hypertension and (units (unknown) date) recently diagnosed unknown) with pneumonia in October of 2021. He has (unknown) (no (unknown) (unknown) iron) (units (unkno wn) date) tablet,delayed unknown) release (unknown) (no (unknown) (unknown) latex [LATEX] (units ( unknown) date) Allergy Mild RASH unknown) Verified 11/28/21 15:33 (unknown) (no (unknown) (unknown) levalbuterol HCl (units (unknown) date) 1.25 mg/3 mL 3 ml unknown) INHALATION Q6H PRN 10/16/18 10/08/21 (unknown) (no (unknown) (unknown) levalbuterol (units (u nknown) date) tartrate 45 1 puff unknown) INHALATION Q4-6H PRN #15 06/22/18 (unknown) (no (unknown) (unknown) mcg/actuation (units ( unknown) date) aerosol inhaler gram unknown) (unknown) (no (unknown) (unknown) mcg/actuation nasal (unit s (unknown) date) unknown) (unknown) (no (unknown) (unknown) meclizine 25 mg (units (unknown) date) tablet 25 mg PO QID unknown) PRN #30 tab 10/09/21 (unknown) (no (unknown) (unknown) methocarbamol 500 (units (unknown) date) mg tablet 500 mg PO unknown) Q8H PRN #14 tab 11/19/21 (unknown) (no (unknown) (unknown) metoprolol tartrate (unit s (unknown) date) 100 mg tablet 100 mg unknown) PO BID 10/16/18 10/08/21 (unknown) (no (unknown) (unknown) mg tablet (units (unkn own) date) (Percocet) unknown) (unknown) (no (unknown) (unknown) multivitamin (units (u nknown) date) (Multiple Vitamins) unknown) 1 tab PO DAILY #0 12/20/16 10/08/21 (unknown) (no (unknown) (unknown) nonproductive cough (unit s (unknown) date) with significant unknown) wheeze. No palpitations. With extensive (unknown) (no (unknown) (unknown) orthopnea but no (units (unknown) date) lower extremity unknown) edema. No fevers. Significant yet (unknown) (no (unknown) (unknown) oxycodone 5 mg (units (unknown) date) tablet 10 mg PO unknown) Q4-5H PRN #60 tab 11/06/20 (unknown) (no (unknown) (unknown) oxycodone-acetamino (unit s (unknown) date) phen 5 mg-325 1 tab unknown) PO Q8H PRN #10 tab 11/19/21 (unknown) (no (unknown) (unknown) oxycodone-acetamino (unit s (unknown) date) phen 5 mg-325 1 tab unknown) PO TID PRN #10 tab 11/19/21 (unknown) (no (unknown) (unknown) prednisone 50 mg (units (unknown) date) tablet 50 mg PO unknown) DAILY #5 tab 11/19/21 (unknown) (no (unknown) (unknown) present.? (units (unkn own) date) unknown) (unknown) (no (unknown) (unknown) release 24 hr (units ( unknown) date) (Glucotrol XL) unknown) (unknown) (no (unknown) (unknown) solution for (units (u nknown) date) nebulization unknown) (unknown) (no (unknown) (unknown) spray,suspension (units (unknown) date) unknown) (unknown) (no (unknown) (unknown) substance use type: (unit s (unknown) date) does not use unknown) (unknown) (no (unknown) (unknown) tablet (units (unkno wn) date) unknown) (unknown) (no (unknown) (unknown) that his 5 days of (units (unknown) date) amoxicillin was not unknown) enough to ?cut it?. He reports no (unknown) (no (unknown) (unknown) trazodone 100 mg (units (unknown) date) tablet 400 tab PO unknown) BEDTIME 12/09/17 10/08/21 (unknown) (no (unknown) (unknown) unremarkable.? (units (unknown) date) unknown) (unknown) (no (unknown) (unknown) varenicline (units (un known) date) [VARENICLINE] unknown) AdvReac Severe Paranoia Verified 11/28/21 15:33 Result panel 21 (unknown) (no (unknown) (unknown) (no value) (units (unk nown) date) unknown) (unknown) (no (unknown) (unknown) Radiologist's (units ( unknown) date) Impression: unknown) (unknown) (no (unknown) (unknown) Date of Service: (units (unknown) date) 11/28/21 unknown) (unknown) (no (unknown) (unknown) (no value) (units (unk nown) date) unknown) (unknown) (no (unknown) (unknown) <Electronically (units (unknown) date) signed by Sarita Marroquin unknown) MD Regina> (unknown) (no (unknown) (unknown) 11/28/21 15:05 (units (unknown) date) unknown) (unknown) (no (unknown) (unknown) 11/28/21 1857 (units ( unknown) date) unknown) (unknown) (no (unknown) (unknown) 1 puff INHALATION (units (unknown) date) Q4-6H PRN (Reason: unknown) shortness of breath or wheezing) Qty: 15 (unknown) (no (unknown) (unknown) 1 spray Intranasal (units (unknown) date) DAILY PRN (Reason: unknown) Allergy Symptoms) Qty: 0 0RF (unknown) (no (unknown) (unknown) 1 tab PO DAILY Qty: (unit s (unknown) date) 0 0RF unknown) (unknown) (no (unknown) (unknown) 1 tab PO Q6HR PRN (units (unknown) date) (Reason: Back Pain) unknown) 0RF (unknown) (no (unknown) (unknown) 1 tab PO Q8H PRN (units (unknown) date) (Reason: pain) Qty: unknown) 10 0RF (unknown) (no (unknown) (unknown) 1 tab PO TID PRN (units (unknown) date) (Reason: pain) Qty: unknown) 10 0RF (unknown) (no (unknown) (unknown) 10 mg PO DAILY 0RF (units (unknown) date) unknown) (unknown) (no (unknown) (unknown) 10 mg PO Q4-5H PRN (units (unknown) date) (Reason: Pain, unknown) Severe (7-10)) Qty: 60 0RF (unknown) (no (unknown) (unknown) 100 mg PO BID 0RF (units (unknown) date) unknown) (unknown) (no (unknown) (unknown) 100 mg PO TID PRN (units (unknown) date) (Reason: cough) Qty: unknown) 14 0RF (unknown) (no (unknown) (unknown) 2 g topical QID (units (unknown) date) Qty: 100 0RF unknown) (unknown) (no (unknown) (unknown) 2.5 mg PO DAILY 0RF (unit s (unknown) date) unknown) (unknown) (no (unknown) (unknown) 2.5 mg inhalation (units (unknown) date) QID Qty: 90 1RF unknown) (unknown) (no (unknown) (unknown) 20 mg PO DAILY Qty: (unit s (unknown) date) 32 0RF unknown) (unknown) (no (unknown) (unknown) 25 mg PO QID PRN (units (unknown) date) (Reason: vertigo) unknown) Qty: 30 0RF (unknown) (no (unknown) (unknown) 3 ml Inhalation Q6H (unit s (unknown) date) PRN (Reason: unknown) Shortness Of Breath) 0RF (unknown) (no (unknown) (unknown) 300 mg PO BID Qty: (units (unknown) date) 20 0RF unknown) (unknown) (no (unknown) (unknown) 325 mg PO DAILY 0RF (unit s (unknown) date) unknown) (unknown) (no (unknown) (unknown) 40 mg PO DAILY 0RF (units (unknown) date) unknown) (unknown) (no (unknown) (unknown) 400 tab PO BEDTIME (units (unknown) date) 0RF unknown) (unknown) (no (unknown) (unknown) 50 mg PO DAILY Qty: (unit s (unknown) date) 5 0RF unknown) (unknown) (no (unknown) (unknown) 500 mg PO Q8H PRN (units (unknown) date) (Reason: muscle unknown) spasm) Qty: 14 0RF (unknown) (no (unknown) (unknown) 60mg x 5 day, 40mg (units (unknown) date) x 5 day, 20mg x5 unknown) day, 10mg x 4 days (unknown) (no (unknown) (unknown) 650 mg PO Q6H PRN (units (unknown) date) (Reason: pain) Qty: unknown) 60 0RF (unknown) (no (unknown) (unknown) ANXIETY, (units (unkno wn) date) unknown) (unknown) (no (unknown) (unknown) Allergies (units (unkn own) date) unknown) (unknown) (no (unknown) (unknown) DIZZINESS (units (unkn own) date) unknown) (unknown) (no (unknown) (unknown) Documented by: (units (unknown) date) unknown) (unknown) (no (unknown) (unknown) Documented by: (units (unknown) date) [facility] unknown) (unknown) (no (unknown) (unknown) Documented by: (units (unknown) date) ZGELEYN unknown) (unknown) (no (unknown) (unknown) ED Orders (units (unkn own) date) unknown) (unknown) (no (unknown) (unknown) EXPOSURE (units (unkno wn) date) unknown) (unknown) (no (unknown) (unknown) Emergency Report (units (unknown) date) unknown) (unknown) (no (unknown) (unknown) Home Medications (units (unknown) date) unknown) (unknown) (no (unknown) (unknown) INHALE 1 VIAL PER (units (unknown) date) NEBULIZER EVERY 6 unknown) HOURS NEEDED (unknown) (no (unknown) (unknown) [facility] (units (unknown) date) [address] unknown) [place] [address] (unknown) (no (unknown) (unknown) JERKING, (units (unkno wn) date) unknown) (unknown) (no (unknown) (unknown) Lab Results (units (un known) date) unknown) (unknown) (no (unknown) (unknown) Label Comments: (units (unknown) date) unknown) (unknown) (no (unknown) (unknown) Last Admin: (units (un known) date) 11/28/21 15:14 unknown) Dose: 3 ml (unknown) (no (unknown) (unknown) Last Admin: (units (un known) date) 11/28/21 15:14 unknown) Dose: 5 mg (unknown) (no (unknown) (unknown) Last Admin: (units (un known) date) 11/28/21 16:12 unknown) Dose: 2 tab (unknown) (no (unknown) (unknown) Last Admin: (units (un known) date) 11/28/21 18:04 Dose: unknown) 1,000 mls/hr (unknown) (no (unknown) (unknown) Last Admin: (units (un known) date) 11/28/21 18:08 Dose: unknown) 1,000 mls/hr (unknown) (no (unknown) (unknown) Last Admin: (units (un known) date) 11/28/21 18:09 Dose: unknown) 150 mls/hr (unknown) (no (unknown) (unknown) Last Admin: (units (un known) date) 11/28/21 18:10 Dose: unknown) 125 mg (unknown) (no (unknown) (unknown) MINUTES (units (unkno wn) date) unknown) (unknown) (no (unknown) (unknown) NAUSEA W/I (units (unk nown) date) unknown) (unknown) (no (unknown) (unknown) Previous Rx's (units ( unknown) date) unknown) (unknown) (no (unknown) (unknown) Rx Instructions: (units (unknown) date) unknown) (unknown) (no (unknown) (unknown) Spouse Milana called (unit s (unknown) date) + reported patient unknown) not taking it regularly. (unknown) (no (unknown) (unknown) Stop: 11/28/21 (units (unknown) date) 15:11 unknown) (unknown) (no (unknown) (unknown) Stop: 11/28/21 (units (unknown) date) 16:02 unknown) (unknown) (no (unknown) (unknown) Stop: 11/28/21 (units (unknown) date) 17:35 unknown) (unknown) (no (unknown) (unknown) Stop: 11/28/21 (units (unknown) date) 17:38 unknown) (unknown) (no (unknown) (unknown) Stop: 11/28/21 (units (unknown) date) 17:56 unknown) (unknown) (no (unknown) (unknown) Stop: 11/28/21 (units (unknown) date) 18:36 unknown) (unknown) (no (unknown) (unknown) Stop: 11/28/21 (units (unknown) date) 18:45 unknown) (unknown) (no (unknown) (unknown) Vital Signs - 8 hr (units (unknown) date) unknown) (unknown) (no (unknown) (unknown) W/EXTENDED (units (unk nown) date) unknown) (unknown) (no (unknown) (unknown) apply to single (units (unknown) date) elbow, wrist or unknown) hand; for hand includes palm/fingers/back of (unknown) (no (unknown) (unknown) patient states (units (unknown) date) weaning off. unknown) (unknown) (no (unknown) (unknown) take 1 tablet by (units (unknown) date) mouth once daily unknown) (unknown) (no (unknown) (unknown) take 1 tablet by (units (unknown) date) mouth twice a day unknown) (unknown) (no (unknown) (unknown) (no value) (units (unk nown) date) unknown) (unknown) (no (unknown) (unknown) 11/28/21 11/28/21 (units (unknown) date) 11/28/21 Range/Units unknown) (unknown) (no (unknown) (unknown) 11/28/21 (units (unkno wn) date) Range/Units unknown) (unknown) (no (unknown) (unknown) 13:51 15:05 15:05 (units (unknown) date) unknown) (unknown) (no (unknown) (unknown) 15:05 16:36 16:36 (units (unknown) date) unknown) (unknown) (no (unknown) (unknown) 17:22 (units (unkno wn) date) unknown) (unknown) (no (unknown) (unknown) Zyrtec 10 mg (units (u nknown) date) Capsule unknown) (unknown) (no (unknown) (unknown) acetaminophen (units ( unknown) date) [Athenol] 325 mg unknown) tablet (unknown) (no (unknown) (unknown) acetaminophen-codei (unit s (unknown) date) ne 300-30 mg tablet unknown) (unknown) (no (unknown) (unknown) albuterol sulfate (units (unknown) date) 1.25 mg/3 mL unknown) solution for nebulization (unknown) (no (unknown) (unknown) benzonatate (units (un known) date) [Tessalon Perles] unknown) 100 mg capsule (unknown) (no (unknown) (unknown) cefdinir 300 mg (units (unknown) date) capsule unknown) (unknown) (no (unknown) (unknown) diclofenac sodium 1 (unit s (unknown) date) % gel unknown) (unknown) (no (unknown) (unknown) ferrous sulfate 325 (unit s (unknown) date) mg (65 mg iron) unknown) tablet,delayed release (DR/EC) (unknown) (no (unknown) (unknown) fluticasone (units (un known) date) propionate 16 GM unknown) spray,suspension (unknown) (no (unknown) (unknown) furosemide [Lasix] (units (unknown) date) 40 mg tablet unknown) (unknown) (no (unknown) (unknown) glipizide (units (unkn own) date) [Glucotrol XL] 2.5 unknown) mg tablet extended release 24 hr (unknown) (no (unknown) (unknown) levalbuterol HCl (units (unknown) date) 1.25 mg/3 mL unknown) solution for nebulization (unknown) (no (unknown) (unknown) levalbuterol (units (u nknown) date) tartrate [Xopenex unknown) HFA] 45 mcg/actuation HFA aerosol inhaler (unknown) (no (unknown) (unknown) meclizine 25 mg (units (unknown) date) tablet unknown) (unknown) (no (unknown) (unknown) methocarbamol 500 (units (unknown) date) mg tablet unknown) (unknown) (no (unknown) (unknown) metoprolol tartrate (unit s (unknown) date) 100 mg tablet unknown) (unknown) (no (unknown) (unknown) multivitamin (units (u nknown) date) [Multiple Vitamins] unknown) 1 EACH tablet (unknown) (no (unknown) (unknown) oxycodone 5 mg (units (unknown) date) Tablet unknown) (unknown) (no (unknown) (unknown) oxycodone-acetamino (unit s (unknown) date) phen [Percocet] unknown) 5-325 mg tablet (unknown) (no (unknown) (unknown) prednisone 20 mg (units (unknown) date) tablet unknown) (unknown) (no (unknown) (unknown) prednisone 50 mg (units (unknown) date) tablet unknown) (unknown) (no (unknown) (unknown) trazodone 100 mg (units (unknown) date) tablet unknown) (unknown) (no (unknown) (unknown) 11/28/21 (units (unkno wn) date) unknown) (unknown) (no (unknown) (unknown) COPD exacerbation (units (unknown) date) unknown) (unknown) (no (unknown) (unknown) Medication (units (unk nown) date) Instructions unknown) Recorded (unknown) (no (unknown) (unknown) Medication (units (unk nown) date) Instructions unknown) Recorded Confirmed (unknown) (no (unknown) (unknown) (Athenol) (units (unkn own) date) unknown) (unknown) (no (unknown) (unknown) (Tessalon Perles) (units (unknown) date) unknown) (unknown) (no (unknown) (unknown) (Xopenex HFA) (units ( unknown) date) unknown) (unknown) (no (unknown) (unknown) [id number] (units (unkn own) date) unknown) (unknown) (no (unknown) (unknown) 11/28/21 13:51 (units (unknown) date) unknown) (unknown) (no (unknown) (unknown) 11/28/21 15:00 (units (unknown) date) unknown) (unknown) (no (unknown) (unknown) 11/28/21 15:04 (units (unknown) date) unknown) (unknown) (no (unknown) (unknown) 11/28/21 15:05 (units (unknown) date) unknown) (unknown) (no (unknown) (unknown) 11/28/21 16:36 (units (unknown) date) unknown) (unknown) (no (unknown) (unknown) 0RF (units (unkno wn) date) unknown) (unknown) (no (unknown) (unknown) 14:59 11/28/21 (units (unknown) date) unknown) (unknown) (no (unknown) (unknown) 15:00 11/28/21 (units (unknown) date) unknown) (unknown) (no (unknown) (unknown) 15:04 (units (unkno wn) date) unknown) (unknown) (no (unknown) (unknown) 15:08 11/28/21 (units (unknown) date) unknown) (unknown) (no (unknown) (unknown) 15:10 11/28/21 (units (unknown) date) unknown) (unknown) (no (unknown) (unknown) 15:15 (units (unkno wn) date) unknown) (unknown) (no (unknown) (unknown) 15:30 11/28/21 (units (unknown) date) unknown) (unknown) (no (unknown) (unknown) 16:00 11/28/21 (units (unknown) date) unknown) (unknown) (no (unknown) (unknown) 16:15 (units (unkno wn) date) unknown) (unknown) (no (unknown) (unknown) 16:30 11/28/21 (units (unknown) date) unknown) (unknown) (no (unknown) (unknown) 16:45 11/28/21 (units (unknown) date) unknown) (unknown) (no (unknown) (unknown) 17:16 (units (unkno wn) date) unknown) (unknown) (no (unknown) (unknown) 17:30 (units (unkno wn) date) unknown) (unknown) (no (unknown) (unknown) 20mg size) (units (unk nown) date) unknown) (unknown) (no (unknown) (unknown) 76-year-old (units (un known) date) gentleman with a unknown) history of COPD, chronic atrial fibrillation not (unknown) (no (unknown) (unknown) 76-year-old (units (un known) date) gentleman with unknown) significant COPD exacerbated by seasonal allergies (unknown) (no (unknown) (unknown) ? (units (unkno wn) date) unknown) (unknown) (no (unknown) (unknown) ALT (<50) IU/L (unit s (unknown) date) unknown) (unknown) (no (unknown) (unknown) ALT 29 (<50) (units (unknown) date) IU/L unknown) (unknown) (no (unknown) (unknown) ALT (<50) IU/L (units (unknown) date) unknown) (unknown) (no (unknown) (unknown) ANTIBIOTICS)] (units ( unknown) date) unknown) (unknown) (no (unknown) (unknown) AST (17-59) (units (unknown) date) IU/L unknown) (unknown) (no (unknown) (unknown) AST 30 (17-59) (units (unknown) date) IU/L unknown) (unknown) (no (unknown) (unknown) AST (17-59) IU/L (unit s (unknown) date) unknown) (unknown) (no (unknown) (unknown) Abdomen: Soft, (units (unknown) date) nontender, good unknown) bowel tones, no flank pain (unknown) (no (unknown) (unknown) Able to give a (units (unknown) date) complete and unknown) coherent history. (unknown) (no (unknown) (unknown) Achalasia (units (unkn own) date) unknown) (unknown) (no (unknown) (unknown) Activity (units (unkno wn) date) Restrictions/Additio unknown) nal Instructions: (unknown) (no (unknown) (unknown) Adenovirus (PCR) (units (unknown) date) (Not Detect) unknown) (unknown) (no (unknown) (unknown) Adenovirus (PCR) (units (unknown) date) (Not Detect) unknown) (unknown) (no (unknown) (unknown) Adenovirus (PCR) (units (unknown) date) Not detected (Not unknown) Detect) (unknown) (no (unknown) (unknown) Age/Sex: 76 / M (units (unknown) date) unknown) (unknown) (no (unknown) (unknown) Albumin (units (unkno wn) date) (3.5-5.0) g/dL unknown) (unknown) (no (unknown) (unknown) Albumin 4.4 (units (unknown) date) (3.5-5.0) g/dL unknown) (unknown) (no (unknown) (unknown) Albumin (3.5-5.0) (unit s (unknown) date) g/dL unknown) (unknown) (no (unknown) (unknown) Albumin/Globulin (units (unknown) date) Ratio (1.0-2.8) unknown) (unknown) (no (unknown) (unknown) Albumin/Globulin (units (unknown) date) Ratio 1.4 unknown) (1.0-2.8) (unknown) (no (unknown) (unknown) Albumin/Globulin (units (unknown) date) Ratio (1.0-2.8) unknown) (unknown) (no (unknown) (unknown) Albuterol (units (unkn own) date) (Albuterol 2.5 Mg/3 unknown) Ml Neb (Adult)) 5 mg INH NOW ONE (unknown) (no (unknown) (unknown) Albuterol/Ipratropi (unit s (unknown) date) um unknown) (Albuterol/Ipratropi um 3 Ml Ampul) 3 ml INH NOW ONE (unknown) (no (unknown) (unknown) Alkaline (units (unkno wn) date) Phosphatase unknown) (38-126) U/L (unknown) (no (unknown) (unknown) Alkaline (units (unkno wn) date) Phosphatase 68 unknown) (38-126) U/L (unknown) (no (unknown) (unknown) Alkaline (units (unkno wn) date) Phosphatase unknown) (38-126) U/L (unknown) (no (unknown) (unknown) Allergy/AdvReac (units (unknown) date) Type Severity unknown) Reaction Status Date / Time (unknown) (no (unknown) (unknown) Anginal pain (units (u nknown) date) unknown) (unknown) (no (unknown) (unknown) Antibiotics) (units (u nknown) date) unknown) (unknown) (no (unknown) (unknown) Approved by: Lexx (units (unknown) date) Clifford Charles on unknown) 11/28/2021 at 16:02? (unknown) (no (unknown) (unknown) As we discussed, (units (unknown) date) there is no clinical unknown) indication of bacterial infection and no (unknown) (no (unknown) (unknown) As we discussed, (units (unknown) date) your wheezing and unknown) cough is related to your COPD. I very much (unknown) (no (unknown) (unknown) Asthma (units (unkno wn) date) unknown) (unknown) (no (unknown) (unknown) Atrial fibrillation (unit s (unknown) date) unknown) (unknown) (no (unknown) (unknown) B. pertussis DNA (units (unknown) date) (PCR) (Not unknown) Detecte) (unknown) (no (unknown) (unknown) B. pertussis DNA (units (unknown) date) (PCR) (Not unknown) Detecte) (unknown) (no (unknown) (unknown) B. pertussis DNA (units (unknown) date) (PCR) Not detected unknown) (Not Detecte) (unknown) (no (unknown) (unknown) B.parapertussis DNA (unit s (unknown) date) PCR (Not unknown) Detecte) (unknown) (no (unknown) (unknown) B.parapertussis DNA (unit s (unknown) date) PCR (Not Detecte) unknown) (unknown) (no (unknown) (unknown) B.parapertussis DNA (unit s (unknown) date) PCR Not detected unknown) (Not Detecte) (unknown) (no (unknown) (unknown) BNP [NT-proBNP (units (unknown) date) (BNP-Adult 18+)] unknown) Stat (unknown) (no (unknown) (unknown) BUN (9-20) (units (unknown) date) mg/dL unknown) (unknown) (no (unknown) (unknown) BUN 13 (9-20) (units (unknown) date) mg/dL unknown) (unknown) (no (unknown) (unknown) BUN (9-20) mg/dL (unit s (unknown) date) unknown) (unknown) (no (unknown) (unknown) BUN/Creatinine (units (unknown) date) Ratio (6-22) unknown) (unknown) (no (unknown) (unknown) BUN/Creatinine (units (unknown) date) Ratio 17.1 unknown) (6-22) (unknown) (no (unknown) (unknown) BUN/Creatinine (units (unknown) date) Ratio (6-22) unknown) (unknown) (no (unknown) (unknown) Baso # (Auto) (units ( unknown) date) (0-100) /uL unknown) (unknown) (no (unknown) (unknown) Baso # (Auto) (units ( unknown) date) (0-100) /uL unknown) (unknown) (no (unknown) (unknown) Baso # (Auto) 100 (unit s (unknown) date) (0-100) /uL unknown) (unknown) (no (unknown) (unknown) Baso % (Auto) (units ( unknown) date) (0-2) % unknown) (unknown) (no (unknown) (unknown) Baso % (Auto) (units ( unknown) date) (0-2) % unknown) (unknown) (no (unknown) (unknown) Baso % (Auto) 1.2 (unit s (unknown) date) (0-2) % unknown) (unknown) (no (unknown) (unknown) Blood Pressure (units (unknown) date) unknown) (unknown) (no (unknown) (unknown) Blood Pressure (units (unknown) date) 130/89 113/77 unknown) (unknown) (no (unknown) (unknown) Blood Pressure (units (unknown) date) 132/90 11/28/21 unknown) 14:59 (unknown) (no (unknown) (unknown) Blood Pressure (units (unknown) date) 113/74 127/82 unknown) (unknown) (no (unknown) (unknown) Blood Pressure (units (unknown) date) 132/90 153/84 H unknown) (unknown) (no (unknown) (unknown) Blood Pressure (units (unknown) date) 153/87 H 154/63 H unknown) (unknown) (no (unknown) (unknown) Bones and chest (units (unknown) date) wall:? No suspicious unknown) bony lesions.? Overlying soft tissues (unknown) (no (unknown) (unknown) COPD (chronic (units ( unknown) date) obstructive unknown) pulmonary disease) (unknown) (no (unknown) (unknown) Calcium (units (unkno wn) date) (8.4-10.2) mg/dL unknown) (unknown) (no (unknown) (unknown) Calcium 8.6 (units (unknown) date) (8.4-10.2) mg/dL unknown) (unknown) (no (unknown) (unknown) Calcium (units (unkno wn) date) (8.4-10.2) mg/dL unknown) (unknown) (no (unknown) (unknown) Carbon Dioxide (units (unknown) date) (22-32) mmol/L unknown) (unknown) (no (unknown) (unknown) Carbon Dioxide (units (unknown) date) 26 (22-32) mmol/L unknown) (unknown) (no (unknown) (unknown) Carbon Dioxide (units (unknown) date) (22-32) mmol/L unknown) (unknown) (no (unknown) (unknown) Cardiac: Regular (units (unknown) date) rate and rhythm no unknown) murmurs no bruits (unknown) (no (unknown) (unknown) Cervical spinal (units (unknown) date) stenosis unknown) (unknown) (no (unknown) (unknown) Chest x-ray: (units (u nknown) date) unknown) (unknown) (no (unknown) (unknown) Chief complaint: (units (unknown) date) Shortness of unknown) Breath/Dyspnea (unknown) (no (unknown) (unknown) Chlamy pneumoniae (units (unknown) date) PCR (Not Detect) unknown) (unknown) (no (unknown) (unknown) Chlamy pneumoniae (units (unknown) date) PCR (Not Detect) unknown) (unknown) (no (unknown) (unknown) Chlamy pneumoniae (units (unknown) date) PCR Not detected unknown) (Not Detect) (unknown) (no (unknown) (unknown) Chloride (units (unkno wn) date) (98-107) mmol/L unknown) (unknown) (no (unknown) (unknown) Chloride 104 (units (unknown) date) (98-107) mmol/L unknown) (unknown) (no (unknown) (unknown) Chloride (98-107) (unit s (unknown) date) mmol/L unknown) (unknown) (no (unknown) (unknown) Chronic obstructive (unit s (unknown) date) pulmonary disease unknown) (10/22/16) (unknown) (no (unknown) (unknown) Clinical (units (unkno wn) date) Impression: unknown) (unknown) (no (unknown) (unknown) Complete Blood (units (unknown) date) Count AUTO DIFF Stat unknown) (unknown) (no (unknown) (unknown) Comprehensive (units ( unknown) date) Metabolic Panel Stat unknown) (unknown) (no (unknown) (unknown) Coronary artery (units (unknown) date) disease unknown) (unknown) (no (unknown) (unknown) Coronavirus 229E (units (unknown) date) (PCR) (Not unknown) Detect) (unknown) (no (unknown) (unknown) Coronavirus 229E (units (unknown) date) (PCR) (Not Detect) unknown) (unknown) (no (unknown) (unknown) Coronavirus 229E (units (unknown) date) (PCR) Not detected unknown) (Not Detect) (unknown) (no (unknown) (unknown) Coronavirus HKU1 (units (unknown) date) (PCR) (Not unknown) Detect) (unknown) (no (unknown) (unknown) Coronavirus HKU1 (units (unknown) date) (PCR) (Not Detect) unknown) (unknown) (no (unknown) (unknown) Coronavirus HKU1 (units (unknown) date) (PCR) Not detected unknown) (Not Detect) (unknown) (no (unknown) (unknown) Coronavirus NL63 (units (unknown) date) (PCR) (Not unknown) Detect) (unknown) (no (unknown) (unknown) Coronavirus NL63 (units (unknown) date) (PCR) (Not Detect) unknown) (unknown) (no (unknown) (unknown) Coronavirus NL63 (units (unknown) date) (PCR) Not detected unknown) (Not Detect) (unknown) (no (unknown) (unknown) Coronavirus OC43 (units (unknown) date) (PCR) (Not unknown) Detect) (unknown) (no (unknown) (unknown) Coronavirus OC43 (units (unknown) date) (PCR) (Not Detect) unknown) (unknown) (no (unknown) (unknown) Coronavirus OC43 (units (unknown) date) (PCR) Not detected unknown) (Not Detect) (unknown) (no (unknown) (unknown) Course (units (unkno wn) date) unknown) (unknown) (no (unknown) (unknown) Creatinine (units (unk nown) date) (0.66-1.25) mg/dL unknown) (unknown) (no (unknown) (unknown) Creatinine 0.76 (units (unknown) date) (0.66-1.25) mg/dL unknown) (unknown) (no (unknown) (unknown) Creatinine (units (unk nown) date) (0.66-1.25) mg/dL unknown) (unknown) (no (unknown) (unknown) D Dimer Stat (units (u nknown) date) unknown) (unknown) (no (unknown) (unknown) D-Dimer (<230) (units (unknown) date) ng/mL unknown) (unknown) (no (unknown) (unknown) D-Dimer (<230) (units (unknown) date) ng/mL unknown) (unknown) (no (unknown) (unknown) D-Dimer 232 H (units (unknown) date) (<230) ng/mL unknown) (unknown) (no (unknown) (unknown) : 1945 (units (unknown) date) Acct:[id number] unknown) (unknown) (no (unknown) (unknown) Kimmy Gomez MD (units (unknown) date) [Primary Care unknown) Provider] - (unknown) (no (unknown) (unknown) Departure (units (unkn own) date) unknown) (unknown) (no (unknown) (unknown) Discharge Plan (units (unknown) date) unknown) (unknown) (no (unknown) (unknown) Discontinued (units (u nknown) date) Medications unknown) (unknown) (no (unknown) (unknown) ECG Data (units (unkno wn) date) unknown) (unknown) (no (unknown) (unknown) EKG-12 Lead Stat (units (unknown) date) unknown) (unknown) (no (unknown) (unknown) ER Physician: (units ( unknown) date) Sarita Tapia MD unknown) (unknown) (no (unknown) (unknown) Entero/Rhino (PCR) (units (unknown) date) (Not Detect) unknown) (unknown) (no (unknown) (unknown) Entero/Rhino (PCR) (units (unknown) date) (Not Detect) unknown) (unknown) (no (unknown) (unknown) Entero/Rhino (PCR) (units (unknown) date) Not detected (Not unknown) Detect) (unknown) (no (unknown) (unknown) Eos # (Auto) (units (u nknown) date) (0-450) /uL unknown) (unknown) (no (unknown) (unknown) Eos # (Auto) (units (u nknown) date) (0-450) /uL unknown) (unknown) (no (unknown) (unknown) Eos # (Auto) 800 (units (unknown) date) H (0-450) /uL unknown) (unknown) (no (unknown) (unknown) Eos % (Auto) (units (u nknown) date) (2-4) % unknown) (unknown) (no (unknown) (unknown) Eos % (Auto) (units (u nknown) date) (2-4) % unknown) (unknown) (no (unknown) (unknown) Eos % (Auto) 10.4 (unit s (unknown) date) H (2-4) % unknown) (unknown) (no (unknown) (unknown) Estimated GFR (units ( unknown) date) (>60) mL/min unknown) (unknown) (no (unknown) (unknown) Estimated GFR > (units (unknown) date) 60 (>60) mL/min unknown) (unknown) (no (unknown) (unknown) Estimated GFR (units ( unknown) date) (>60) mL/min unknown) (unknown) (no (unknown) (unknown) Exam (units (unkno wn) date) unknown) (unknown) (no (unknown) (unknown) Extremities: No (units (unknown) date) trauma, well unknown) perfused, no lower extremity edema (unknown) (no (unknown) (unknown) FINDINGS:? (units (unk nown) date) unknown) (unknown) (no (unknown) (unknown) Family History (units (unknown) date) (Reviewed 11/28/21 @ unknown) 18:47 by Sarita Tapia MD) (unknown) (no (unknown) (unknown) General (units (unkno wn) date) unknown) (unknown) (no (unknown) (unknown) General: (units (unkno wn) date) Chronically unknown) ill-appearing with moderate dry cough, audible wheeze, but (unknown) (no (unknown) (unknown) GenericComposite[Pl (unit s (unknown) date) t Count unknown) (150-400) X10^3/uL ] (unknown) (no (unknown) (unknown) GenericComposite[Pl (unit s (unknown) date) t Count (150-400) unknown) X10^3/uL ] (unknown) (no (unknown) (unknown) GenericComposite[Pl (unit s (unknown) date) t Count 236 unknown) (150-400) X10^3/uL ] (unknown) (no (unknown) (unknown) GenericComposite[RB (unit s (unknown) date) C (4.5-5.9) unknown) X10^6/uL ] (unknown) (no (unknown) (unknown) GenericComposite[RB (unit s (unknown) date) C (4.5-5.9) unknown) X10^6/uL ] (unknown) (no (unknown) (unknown) GenericComposite[RB (unit s (unknown) date) C 4.61 (4.5-5.9) unknown) X10^6/uL ] (unknown) (no (unknown) (unknown) GenericComposite[WB (unit s (unknown) date) C (4.5-11.0) unknown) X10^3/uL ] (unknown) (no (unknown) (unknown) GenericComposite[WB (unit s (unknown) date) C (4.5-11.0) unknown) X10^3/uL ] (unknown) (no (unknown) (unknown) GenericComposite[WB (unit s (unknown) date) C 7.3 (4.5-11.0) unknown) X10^3/uL ] (unknown) (no (unknown) (unknown) Globulin (units (unkno wn) date) (1.7-4.1) g/dL unknown) (unknown) (no (unknown) (unknown) Globulin 3.2 (units (unknown) date) (1.7-4.1) g/dL unknown) (unknown) (no (unknown) (unknown) Globulin (units (unkno wn) date) (1.7-4.1) g/dL unknown) (unknown) (no (unknown) (unknown) Glucose (units (unkno wn) date) (80-110) mg/dL unknown) (unknown) (no (unknown) (unknown) Glucose 98 D (units (unknown) date) (80-110) mg/dL unknown) (unknown) (no (unknown) (unknown) Glucose (80-110) (units (unknown) date) mg/dL unknown) (unknown) (no (unknown) (unknown) H/O arthroscopic (units (unknown) date) knee surgery unknown) (11/14/17) (unknown) (no (unknown) (unknown) HEENT: Moist (units ( unknown) date) mucous membranes, unknown) normal sclera with reactive pupils, (unknown) (no (unknown) (unknown) HPI - General Adult (unit s (unknown) date) unknown) (unknown) (no (unknown) (unknown) HPI narrative: (units (unknown) date) unknown) (unknown) (no (unknown) (unknown) [place] (units (unkno wn) date) unknown) (unknown) (no (unknown) (unknown) Hct (41-53) % (units (unknown) date) unknown) (unknown) (no (unknown) (unknown) Hct (41-53) % (units (unknown) date) unknown) (unknown) (no (unknown) (unknown) Hct 42.9 (units (unk nown) date) (41-53) % unknown) (unknown) (no (unknown) (unknown) He is clearly (units ( unknown) date) having a COPD unknown) exacerbation and does need additional steroids. In (unknown) (no (unknown) (unknown) He is requesting a (units (unknown) date) small prescription unknown) of Percocet to help with the cough at (unknown) (no (unknown) (unknown) Hgb (13.5-17.5) (unit s (unknown) date) g/dL unknown) (unknown) (no (unknown) (unknown) Hgb (13.5-17.5) (units (unknown) date) g/dL unknown) (unknown) (no (unknown) (unknown) Hgb 14.7 (units (unk nown) date) (13.5-17.5) g/dL unknown) (unknown) (no (unknown) (unknown) History of Present (units (unknown) date) Illness unknown) (unknown) (no (unknown) (unknown) History of aortic (units (unknown) date) dissection unknown) () (unknown) (no (unknown) (unknown) History of (units (unk nown) date) arthroplasty of unknown) right knee (unknown) (no (unknown) (unknown) 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 (unknown) (no (unknown) (unknown) History of cardiac (units (unknown) date) cath () unknown) (unknown) (no (unknown) (unknown) History of (units (unk nown) date) esophageal surgery unknown) (unknown) (no (unknown) (unknown) History of incision (unit s (unknown) date) and drainage () unknown) (unknown) (no (unknown) (unknown) History of prior (units (unknown) date) ablation treatment unknown) () (unknown) (no (unknown) (unknown) History of surgery (units (unknown) date) unknown) (unknown) (no (unknown) (unknown) Human Metapneumovir (unit s (unknown) date) PCR (Not Detect) unknown) (unknown) (no (unknown) (unknown) Human Metapneumovir (unit s (unknown) date) PCR (Not Detect) unknown) (unknown) (no (unknown) (unknown) Human Metapneumovir (unit s (unknown) date) PCR Not detected unknown) (Not Detect) (unknown) (no (unknown) (unknown) Hx of (units (unkno wn) date) cholecystectomy unknown) (unknown) (no (unknown) (unknown) Hx of hernia repair (unit s (unknown) date) unknown) (unknown) (no (unknown) (unknown) Hx of sinus surgery (unit s (unknown) date) unknown) (unknown) (no (unknown) (unknown) Hypertension (units (u nknown) date) unknown) (unknown) (no (unknown) (unknown) IMPRESSION:? No (units (unknown) date) acute unknown) cardiopulmonary findings (unknown) (no (unknown) (unknown) INHIBITOR] (units (unk nown) date) unknown) (unknown) (no (unknown) (unknown) IV steroids and is (units (unknown) date) feeling unknown) significantly better. He has also had multiple (unknown) (no (unknown) (unknown) If you find that (units (unknown) date) you are feeling unknown) worse, please feel free to return to the ER (unknown) (no (unknown) (unknown) Imaging Data (units (u nknown) date) unknown) (unknown) (no (unknown) (unknown) In the emergency (units (unknown) date) department his unknown) lowest saturation is at 90% on room air when he (unknown) (no (unknown) (unknown) Influenza Type A (units (unknown) date) (PCR) (Not unknown) Detect) (unknown) (no (unknown) (unknown) Influenza Type A (units (unknown) date) (PCR) (Not Detect) unknown) (unknown) (no (unknown) (unknown) Influenza Type A (units (unknown) date) (PCR) Not detected unknown) (Not Detect) (unknown) (no (unknown) (unknown) Influenza Type B (units (unknown) date) (PCR) (Not unknown) Detect) (unknown) (no (unknown) (unknown) Influenza Type B (units (unknown) date) (PCR) (Not Detect) unknown) (unknown) (no (unknown) (unknown) Influenza Type B (units (unknown) date) (PCR) Not detected unknown) (Not Detect) (unknown) (no (unknown) (unknown) Inhibitor MUSCLES (unit s (unknown) date) unknown) (unknown) (no (unknown) (unknown) Initial Vital Signs (unit s (unknown) date) unknown) (unknown) (no (unknown) (unknown) Initial Vital (units ( unknown) date) Signs: unknown) (unknown) (no (unknown) (unknown) Instructions: DI (units (unknown) date) for Chronic unknown) Obstructive Pulmonary Disease (unknown) (no (unknown) (unknown) Interpretation: (units (unknown) date) unknown) (unknown) (no (unknown) (unknown) Ischemic (units (unkno wn) date) cardiomyopathy unknown) (unknown) (no (unknown) (unknown) Ketorolac (units (unkn own) date) Tromethamine unknown) (Ketorolac 30 Mg/Ml Vial) 15 mg IV NOW ONE (unknown) (no (unknown) (unknown) Lab Data (units (unkno wn) date) unknown) (unknown) (no (unknown) (unknown) Labs: (units (unkno wn) date) unknown) (unknown) (no (unknown) (unknown) Lactate (units (unkno wn) date) (0.7-2.1) mmol/L unknown) (unknown) (no (unknown) (unknown) Lactate 0.9 (units (u nknown) date) (0.7-2.1) mmol/L unknown) (unknown) (no (unknown) (unknown) Lactate 2.6 H (units (unknown) date) (0.7-2.1) mmol/L unknown) (unknown) (no (unknown) (unknown) Lactate (Lactic (units (unknown) date) Acid) Stat unknown) (unknown) (no (unknown) (unknown) Lower cervical (units (unknown) date) spine hardware.? No unknown) acute cardiopulmonary findings (unknown) (no (unknown) (unknown) Lungs and pleura:? (units (unknown) date) Lungs are clear.? No unknown) pleural effusions or pneumothorax.? (unknown) (no (unknown) (unknown) Lymph # (Auto) (units (unknown) date) ([id number]) /uL unknown) (unknown) (no (unknown) (unknown) Lymph # (Auto) (units (unknown) date) ([id number]) /uL unknown) (unknown) (no (unknown) (unknown) Lymph # (Auto) (units (unknown) date) 1700 ([id number]) unknown) /uL (unknown) (no (unknown) (unknown) Lymph % (Auto) (units (unknown) date) (25-40) % unknown) (unknown) (no (unknown) (unknown) Lymph % (Auto) (units (unknown) date) (25-40) % unknown) (unknown) (no (unknown) (unknown) Lymph % (Auto) (units (unknown) date) 23.5 L (25-40) % unknown) (unknown) (no (unknown) (unknown) M. pneumoniae (PCR) (unit s (unknown) date) (Not Detect) unknown) (unknown) (no (unknown) (unknown) M. pneumoniae (PCR) (unit s (unknown) date) (Not Detect) unknown) (unknown) (no (unknown) (unknown) M. pneumoniae (PCR) (unit s (unknown) date) Not detected unknown) (Not Detect) (unknown) (no (unknown) (unknown) MCH (26-34) PG (unit s (unknown) date) unknown) (unknown) (no (unknown) (unknown) MCH (26-34) PG (units (unknown) date) unknown) (unknown) (no (unknown) (unknown) MCH 32.0 (units (unk nown) date) (26-34) PG unknown) (unknown) (no (unknown) (unknown) MCHC (30-36) % (unit s (unknown) date) unknown) (unknown) (no (unknown) (unknown) MCHC (30-36) % (units (unknown) date) unknown) (unknown) (no (unknown) (unknown) MCHC 34.4 (units (un known) date) (30-36) % unknown) (unknown) (no (unknown) (unknown) MCV (80-100) (units (unknown) date) fL unknown) (unknown) (no (unknown) (unknown) MCV (80-100) fL (units (unknown) date) unknown) (unknown) (no (unknown) (unknown) MCV 93.2 (units (unk nown) date) (80-100) fL unknown) (unknown) (no (unknown) (unknown) MDM Narrative (units ( unknown) date) unknown) (unknown) (no (unknown) (unknown) Magnesium Sulfate (units (unknown) date) (Magnesium Sulfate) unknown) 2 gm in 50 mls @ 150 mls/hr IV NOW ONE (unknown) (no (unknown) (unknown) Mediastinum:? (units ( unknown) date) Mediastinal contours unknown) appear normal.? Heart size is normal.? (unknown) (no (unknown) (unknown) Medical Decision (units (unknown) date) Making unknown) (unknown) (no (unknown) (unknown) Medical History (units (unknown) date) (Reviewed 11/28/21 @ unknown) 18:47 by Sarita Tapia MD) (unknown) (no (unknown) (unknown) Medical decision (units (unknown) date) making narrative: unknown) (unknown) (no (unknown) (unknown) Methylprednisolone (units (unknown) date) (Methylprednisolone unknown) 125 Mg/2 Ml Vial) 125 mg IV NOW ONE (unknown) (no (unknown) (unknown) Mode of arrival: (units (unknown) date) Wheelchair unknown) (unknown) (no (unknown) (unknown) [place] # (Auto) (units ( unknown) date) (0-900) /uL unknown) (unknown) (no (unknown) (unknown) [place] # (Auto) (units ( unknown) date) (0-900) /uL unknown) (unknown) (no (unknown) (unknown) [place] # (Auto) 700 (unit s (unknown) date) (0-900) /uL unknown) (unknown) (no (unknown) (unknown) [place] % (Auto) (units ( unknown) date) (3-14) % unknown) (unknown) (no (unknown) (unknown) [place] % (Auto) (units ( unknown) date) (3-14) % unknown) (unknown) (no (unknown) (unknown) [place] % (Auto) 9.7 (unit s (unknown) date) (3-14) % unknown) (unknown) (no (unknown) (unknown) Mother (units (unknown) date) Stroke unknown) (unknown) (no (unknown) (unknown) NT-Pro-B Natriuret (units (unknown) date) Pep (<450) unknown) pg/mL (unknown) (no (unknown) (unknown) NT-Pro-B Natriuret (units (unknown) date) Pep 190 (<450) unknown) pg/mL (unknown) (no (unknown) (unknown) NT-Pro-B Natriuret (units (unknown) date) Pep (<450) pg/mL unknown) (unknown) (no (unknown) (unknown) Narcotic dependence (unit s (unknown) date) unknown) (unknown) (no (unknown) (unknown) Narrative: (units (unk nown) date) unknown) (unknown) (no (unknown) (unknown) Neck pain, chronic (units (unknown) date) unknown) (unknown) (no (unknown) (unknown) Neck: No JVD, (units (unknown) date) supple unknown) (unknown) (no (unknown) (unknown) Neurologic: (units (un known) date) Grossly unknown) neurologically intact with no obvious asymmetries or (unknown) (no (unknown) (unknown) Neut # (Auto) (units ( unknown) date) (9113-0723) /uL unknown) (unknown) (no (unknown) (unknown) Neut # (Auto) (units ( unknown) date) (7368-5358) /uL unknown) (unknown) (no (unknown) (unknown) Neut # (Auto) (units ( unknown) date) 4000 (2394-3642) unknown) /uL (unknown) (no (unknown) (unknown) Neut % (Auto) (units ( unknown) date) (50-75) % unknown) (unknown) (no (unknown) (unknown) Neut % (Auto) (units ( unknown) date) (50-75) % unknown) (unknown) (no (unknown) (unknown) Neut % (Auto) (units ( unknown) date) 55.2 (50-75) % unknown) (unknown) (no (unknown) (unknown) New (units (unkno wn) date) unknown) (unknown) (no (unknown) (unknown) No Action (units (unkn own) date) unknown) (unknown) (no (unknown) (unknown) No acute ischemic (units (unknown) date) changes unknown) (unknown) (no (unknown) (unknown) Ordered: (units (unkno wn) date) unknown) (unknown) (no (unknown) (unknown) Orders (units (unkno wn) date) unknown) (unknown) (no (unknown) (unknown) Oxycodone/Acetaminop (unit s (unknown) date) hen unknown) (Oxycodone/Acetamino phen 5/325 Tablet) 2 tab PO NOW ONE (unknown) (no (unknown) (unknown) Parainfluenza 1 (units (unknown) date) (PCR) (Not unknown) Detect) (unknown) (no (unknown) (unknown) Parainfluenza 1 (units (unknown) date) (PCR) (Not Detect) unknown) (unknown) (no (unknown) (unknown) Parainfluenza 1 (units (unknown) date) (PCR) Not detected unknown) (Not Detect) (unknown) (no (unknown) (unknown) Parainfluenza 2 (units (unknown) date) (PCR) (Not unknown) Detect) (unknown) (no (unknown) (unknown) Parainfluenza 2 (units (unknown) date) (PCR) (Not Detect) unknown) (unknown) (no (unknown) (unknown) Parainfluenza 2 (units (unknown) date) (PCR) Not detected unknown) (Not Detect) (unknown) (no (unknown) (unknown) Parainfluenza 3 (units (unknown) date) (PCR) (Not unknown) Detect) (unknown) (no (unknown) (unknown) Parainfluenza 3 (units (unknown) date) (PCR) (Not Detect) unknown) (unknown) (no (unknown) (unknown) Parainfluenza 3 (units (unknown) date) (PCR) Not detected unknown) (Not Detect) (unknown) (no (unknown) (unknown) Parainfluenza 4 (units (unknown) date) (PCR) (Not unknown) Detect) (unknown) (no (unknown) (unknown) Parainfluenza 4 (units (unknown) date) (PCR) (Not Detect) unknown) (unknown) (no (unknown) (unknown) Parainfluenza 4 (units (unknown) date) (PCR) Not detected unknown) (Not Detect) (unknown) (no (unknown) (unknown) Patient (units (unkno wn) date) Disposition: Home unknown) (unknown) (no (unknown) (unknown) Patient History (units (unknown) date) unknown) (unknown) (no (unknown) (unknown) Patient: (units (unkno wn) date) Dominic Viveros unknown) MR#: M (unknown) (no (unknown) (unknown) Please complete a (units (unknown) date) prednisone taper unknown) beginning tomorrow consisting of 60 mg for 5 (unknown) (no (unknown) (unknown) Please continue all (unit s (unknown) date) of your allergy unknown) medication. (unknown) (no (unknown) (unknown) Potassium (units (unkn own) date) (3.4-5.1) mmol/L unknown) (unknown) (no (unknown) (unknown) Potassium 4.6 (units (unknown) date) (3.4-5.1) mmol/L unknown) (unknown) (no (unknown) (unknown) Potassium (units (unkn own) date) (3.4-5.1) mmol/L unknown) (unknown) (no (unknown) (unknown) Prescriptions: (units (unknown) date) unknown) (unknown) (no (unknown) (unknown) Procalcitonin (units ( unknown) date) (<0.5) ng/mL unknown) (unknown) (no (unknown) (unknown) Procalcitonin (units ( unknown) date) 0.04 (<0.5) ng/mL unknown) (unknown) (no (unknown) (unknown) Procalcitonin (units ( unknown) date) (<0.5) ng/mL unknown) (unknown) (no (unknown) (unknown) Procalcitonin Stat (units (unknown) date) unknown) (unknown) (no (unknown) (unknown) Psych: (units (unkno wn) date) Cooperative, unknown) appropriate insight and affect (unknown) (no (unknown) (unknown) Pulse Oximetry 95 (units (unknown) date) 95 unknown) (unknown) (no (unknown) (unknown) Pulse Oximetry 93 (units (unknown) date) unknown) (unknown) (no (unknown) (unknown) Pulse Oximetry 96 (units (unknown) date) 93 94 unknown) (unknown) (no (unknown) (unknown) Pulse Oximetry 96 (units (unknown) date) 94 96 unknown) (unknown) (no (unknown) (unknown) Pulse Oximetry 98 (units (unknown) date) 93 90 L unknown) (unknown) (no (unknown) (unknown) Pulse Rate 94 H 78 (unit s (unknown) date) unknown) (unknown) (no (unknown) (unknown) Pulse Rate 55 L (units (unknown) date) unknown) (unknown) (no (unknown) (unknown) Pulse Rate 68 69 65 (unit s (unknown) date) unknown) (unknown) (no (unknown) (unknown) Pulse Rate 74 73 78 (unit s (unknown) date) unknown) (unknown) (no (unknown) (unknown) Pulse Rate 86 56 L (unit s (unknown) date) unknown) (unknown) (no (unknown) (unknown) RDW (11.6-14.8) (unit s (unknown) date) % unknown) (unknown) (no (unknown) (unknown) RDW (11.6-14.8) (units (unknown) date) % unknown) (unknown) (no (unknown) (unknown) RDW 13.6 (units (unk nown) date) (11.6-14.8) % unknown) (unknown) (no (unknown) (unknown) RSV (PCR) (Not (units (unknown) date) Detect) unknown) (unknown) (no (unknown) (unknown) RSV (PCR) (Not (units (unknown) date) Detect) unknown) (unknown) (no (unknown) (unknown) RSV (PCR) Not (units (unknown) date) detected (Not unknown) Detect) (unknown) (no (unknown) (unknown) RT Consult Eval and (unit s (unknown) date) Treat Now unknown) (unknown) (no (unknown) (unknown) Referrals: (units (unk nown) date) unknown) (unknown) (no (unknown) (unknown) Related Data (units (u nknown) date) unknown) (unknown) (no (unknown) (unknown) Remainder of (units (u nknown) date) complete review of unknown) systems is otherwise unremarkable except for (unknown) (no (unknown) (unknown) Cole. He is (units (unknown) date) concerned that his unknown) cough is continuing to keep him awake and (unknown) (no (unknown) (unknown) Respiratory Panel (units (unknown) date) (Film Array) Stat unknown) (unknown) (no (unknown) (unknown) Respiratory Rate (units (unknown) date) unknown) (unknown) (no (unknown) (unknown) Respiratory Rate (units (unknown) date) 39 H 28 H unknown) (unknown) (no (unknown) (unknown) Respiratory Rate 15 (unit s (unknown) date) 28 H 23 unknown) (unknown) (no (unknown) (unknown) Respiratory Rate 20 (unit s (unknown) date) unknown) (unknown) (no (unknown) (unknown) Respiratory Rate 30 (unit s (unknown) date) H unknown) (unknown) (no (unknown) (unknown) Respiratory: Lungs (units (unknown) date) with significant unknown) wheeze but able to speak in full sentences, (unknown) (no (unknown) (unknown) Result diagrams: (units (unknown) date) unknown) (unknown) (no (unknown) (unknown) Review of Systems (units (unknown) date) unknown) (unknown) (no (unknown) (unknown) S/P CABG x 3 (units (u nknown) date) () unknown) (unknown) (no (unknown) (unknown) S/P cervical spinal (unit s (unknown) date) fusion unknown) (unknown) (no (unknown) (unknown) S/P lumbar fusion (units (unknown) date) unknown) (unknown) (no (unknown) (unknown) SARS-CoV-2 (PCR) (units (unknown) date) (Not Detecte) unknown) (unknown) (no (unknown) (unknown) SARS-CoV-2 (PCR) (units (unknown) date) (Not Detecte) unknown) (unknown) (no (unknown) (unknown) SARS-CoV-2 (PCR) (units (unknown) date) Not detected (Not unknown) Detecte) (unknown) (no (unknown) (unknown) Signed By: (units (unk nown) date) unknown) (unknown) (no (unknown) (unknown) Sinus rhythm with (units (unknown) date) marked sinus unknown) arrhythmia at a rate of 82 (unknown) (no (unknown) (unknown) Skin: Warm and (units (unknown) date) dry, no rashes unknown) (unknown) (no (unknown) (unknown) Smoking Status: (units (unknown) date) Former smoker unknown) (unknown) (no (unknown) (unknown) Smoking Status: (units (unknown) date) Former smoker unknown) (unknown) (no (unknown) (unknown) Social History (units (unknown) date) (Reviewed 11/28/21 @ unknown) 18:47 by Sarita Tapia MD) (unknown) (no (unknown) (unknown) Sodium (units (unkno wn) date) (137-145) mmol/L unknown) (unknown) (no (unknown) (unknown) Sodium 140 (units ( unknown) date) (137-145) mmol/L unknown) (unknown) (no (unknown) (unknown) Sodium (137-145) (units (unknown) date) mmol/L unknown) (unknown) (no (unknown) (unknown) Sodium Chloride (units (unknown) date) (Normal Saline 0.9%) unknown) 1,000 mls @ 1,000 mls/hr IV BOLUS ONE (unknown) (no (unknown) (unknown) Source: patient and (unit s (unknown) date) family unknown) (unknown) (no (unknown) (unknown) Stated complaint: (units (unknown) date) Has pneumonia- told unknown) by to come (unknown) (no (unknown) (unknown) [id number] (units (unknown) date) Reductase AdvReac unknown) Mild WEAK Verified 11/28/21 15:33 (unknown) (no (unknown) (unknown) Substance Use Type: (unit s (unknown) date) does not use unknown) (unknown) (no (unknown) (unknown) Sulfa (Sulfonamide (units (unknown) date) Allergy Mild RASH unknown) Verified 11/28/21 15:33 (unknown) (no (unknown) (unknown) Surgical History (units (unknown) date) (Reviewed 11/28/21 @ unknown) 18:47 by Sarita Tapia MD) (unknown) (no (unknown) (unknown) Surgical changes (units (unknown) date) and devices:? unknown) Midline sternal wires mediastinal vascular clips (unknown) (no (unknown) (unknown) Temperature (units (un known) date) unknown) (unknown) (no (unknown) (unknown) Temperature (units (un known) date) unknown) (unknown) (no (unknown) (unknown) Temperature 98.3 F (units (unknown) date) unknown) (unknown) (no (unknown) (unknown) Thank you for (units ( unknown) date) coming in today unknown) (unknown) (no (unknown) (unknown) These prescriptions (unit s (unknown) date) have been unknown) electronically transmitted to [facility] (unknown) (no (unknown) (unknown) Time Seen by (units (u nknown) date) Provider: 11/28/21 unknown) 15:10 (unknown) (no (unknown) (unknown) Total Bilirubin (units (unknown) date) (0.2-1.3) mg/dL unknown) (unknown) (no (unknown) (unknown) Total Bilirubin (units (unknown) date) 0.6 (0.2-1.3) unknown) mg/dL (unknown) (no (unknown) (unknown) Total Bilirubin (units (unknown) date) (0.2-1.3) mg/dL unknown) (unknown) (no (unknown) (unknown) Total Protein (units ( unknown) date) (6.3-8.2) g/dL unknown) (unknown) (no (unknown) (unknown) Total Protein (units ( unknown) date) 7.6 (6.3-8.2) g/dL unknown) (unknown) (no (unknown) (unknown) Total Protein (units ( unknown) date) (6.3-8.2) g/dL unknown) (unknown) (no (unknown) (unknown) Trop I [Troponin I] (unit s (unknown) date) Stat unknown) (unknown) (no (unknown) (unknown) Troponin I (units (unk nown) date) (0.01-0.034) ng/mL unknown) (unknown) (no (unknown) (unknown) Troponin I < (units (unknown) date) 0.012 (0.01-0.034) unknown) ng/mL (unknown) (no (unknown) (unknown) Troponin I (units (unk nown) date) (0.01-0.034) ng/mL unknown) (unknown) (no (unknown) (unknown) Ventricular (units (un known) date) bigeminy unknown) (unknown) (no (unknown) (unknown) Vital Signs (units (un known) date) unknown) (unknown) (no (unknown) (unknown) Vital signs: (units (u nknown) date) unknown) (unknown) (no (unknown) (unknown) XR chest 1V Stat (units (unknown) date) unknown) (unknown) (no (unknown) (unknown) You can use 1 (units ( unknown) date) Percocet at night to unknown) help so pressure cough and help you sleep (unknown) (no (unknown) (unknown) You can use (units (un known) date) albuterol nebulizers unknown) up to every 4 hours as needed (unknown) (no (unknown) (unknown) You do need to (units (unknown) date) follow-up with your unknown) primary care physician the for the steroid (unknown) (no (unknown) (unknown) [Embedded Image Not (unit s (unknown) date) Available] unknown) (unknown) (no (unknown) (unknown) [[id number] (units (unknown) date) REDUCTASE unknown) (unknown) (no (unknown) (unknown) [SULFA (SULFONAMIDE (unit s (unknown) date) unknown) (unknown) (no (unknown) (unknown) abnormalities (units ( unknown) date) unknown) (unknown) (no (unknown) (unknown) acetaminophen 300 (units (unknown) date) mg-codeine 30 mg 1 unknown) tab PO Q6HR PRN 10/08/21 10/08/21 (unknown) (no (unknown) (unknown) acetaminophen 325 (units (unknown) date) mg tablet 650 mg PO unknown) Q6H PRN #60 tab 11/06/20 (unknown) (no (unknown) (unknown) agree with you that (unit s (unknown) date) your seasonal unknown) allergies are contributing and significantly (unknown) (no (unknown) (unknown) albuterol sulfate (units (unknown) date) 1.25 mg/3 mL 2.5 mg unknown) (6 mL) INHALATION QID #90 ml 11/28/21 (unknown) (no (unknown) (unknown) alcohol intake (units (unknown) date) frequency: unknown) holidays/special occasions only (unknown) (no (unknown) (unknown) alcohol intake: (units (unknown) date) current unknown) (unknown) (no (unknown) (unknown) and pollens are (units (unknown) date) thick in the air unknown) this week. He has no evidence of infectious (unknown) (no (unknown) (unknown) anticoagulated, (units (unknown) date) ischemic unknown) cardiomyopathy, history of mesenteric ischemia, (unknown) (no (unknown) (unknown) appear (units (unkno wn) date) unknown) (unknown) (no (unknown) (unknown) available to him at (unit s (unknown) date) home. He will also unknown) need a longer steroid taper and will (unknown) (no (unknown) (unknown) been using Flonase, (unit s (unknown) date) levalbuterol, unknown) Zyrtec, Benadryl, Singulair and in the past (unknown) (no (unknown) (unknown) benzonatate 100 mg (units (unknown) date) capsule 100 mg PO unknown) TID PRN #14 cap 03/05/21 (unknown) (no (unknown) (unknown) buprenorphine (units ( unknown) date) [BUPRENORPHINE] unknown) AdvReac Mild NAUSEA, Verified 11/28/21 15:33 (unknown) (no (unknown) (unknown) cefdinir 300 mg (units (unknown) date) capsule 300 mg PO unknown) BID #20 cap 10/09/21 (unknown) (no (unknown) (unknown) celecoxib (units (unkn own) date) [CELECOXIB] Allergy unknown) Mild SWELLING Verified 11/28/21 15:33 (unknown) (no (unknown) (unknown) cetirizine 10 mg (units (unknown) date) capsule (Zyrtec) 10 unknown) mg PO DAILY 05/22/19 10/08/21 (unknown) (no (unknown) (unknown) coughing he does (units (unknown) date) note occasional unknown) headaches. He has had no nausea, vomiting or (unknown) (no (unknown) (unknown) course is completed (unit s (unknown) date) to see what the unknown) recommendation are in terms of continuing (unknown) (no (unknown) (unknown) days, 40mg x 5 days (unit s (unknown) date) 20mg x 5 days and unknown) then 10 mg x 4 days (total = 32 pills, (unknown) (no (unknown) (unknown) decide what the (units (unknown) date) appropriate dose is unknown) going to be for him. (unknown) (no (unknown) (unknown) diarrhea. No (units ( unknown) date) abdominal pain. unknown) (unknown) (no (unknown) (unknown) diazepam [From (units (unknown) date) Valium] AdvReac unknown) Confusion Verified 11/28/21 15:33 (unknown) (no (unknown) (unknown) diclofenac sodium 1 (unit s (unknown) date) % topical gel 2 g unknown) TOPICAL QID #100 g 11/19/21 (unknown) (no (unknown) (unknown) etiology within (units (unknown) date) normal chest x-ray, unknown) normal white blood cell count, initial (unknown) (no (unknown) (unknown) exacerbating your (units (unknown) date) COPD. unknown) (unknown) (no (unknown) (unknown) ferrous sulfate 325 (unit s (unknown) date) mg (65 mg 325 mg PO unknown) DAILY 10/19/19 10/08/21 (unknown) (no (unknown) (unknown) fluticasone (units (un known) date) propionate 50 1 unknown) spray INTRANASAL DAILY PRN #0 11/02/17 10/08/21 (unknown) (no (unknown) (unknown) furosemide 40 mg (units (unknown) date) tablet (Lasix) 40 mg unknown) PO DAILY 10/08/21 10/08/21 (unknown) (no (unknown) (unknown) glipizide 2.5 mg (units (unknown) date) tablet, extended 2.5 unknown) mg PO DAILY 10/08/21 10/08/21 (unknown) (no (unknown) (unknown) hand (units (unkno wn) date) unknown) (unknown) (no (unknown) (unknown) has been benefited (units (unknown) date) with Augmentin and unknown) steroids. His densitometrist is (unknown) (no (unknown) (unknown) heart failure or (units (unknown) date) heart attack or unknown) heart attack like syndrome. (unknown) (no (unknown) (unknown) help. (units (unkno wn) date) unknown) (unknown) (no (unknown) (unknown) household members: (units (unknown) date) spouse unknown) (unknown) (no (unknown) (unknown) hyoscyamine (units (un known) date) [HYOSCYAMINE] unknown) AdvReac Mild LEG Verified 11/28/21 15:33 (unknown) (no (unknown) (unknown) hypertension and (units (unknown) date) recently diagnosed unknown) with pneumonia in October of 2021. He has (unknown) (no (unknown) (unknown) indication for (units (unknown) date) antibiotics. unknown) Similarly, there is no indication of congestive (unknown) (no (unknown) (unknown) intervention. (units ( unknown) date) Procalcitonin is unknown) equally normal. In light of all of this I have (unknown) (no (unknown) (unknown) iron) (units (unkno wn) date) tablet,delayed unknown) release (unknown) (no (unknown) (unknown) is up and moving (units (unknown) date) around the room. unknown) Sitting and talking his saturations are in (unknown) (no (unknown) (unknown) lactic acid was (units (unknown) date) slightly elevated unknown) but came down to normal with no and (unknown) (no (unknown) (unknown) latex [LATEX] (units ( unknown) date) Allergy Mild RASH unknown) Verified 11/28/21 15:33 (unknown) (no (unknown) (unknown) levalbuterol HCl (units (unknown) date) 1.25 mg/3 mL 3 ml unknown) INHALATION Q6H PRN 10/16/18 10/08/21 (unknown) (no (unknown) (unknown) levalbuterol (units (u nknown) date) tartrate 45 1 puff unknown) INHALATION Q4-6H PRN #15 06/22/18 (unknown) (no (unknown) (unknown) mcg/actuation (units ( unknown) date) aerosol inhaler gram unknown) (unknown) (no (unknown) (unknown) mcg/actuation nasal (unit s (unknown) date) unknown) (unknown) (no (unknown) (unknown) meclizine 25 mg (units (unknown) date) tablet 25 mg PO QID unknown) PRN #30 tab 10/09/21 (unknown) (no (unknown) (unknown) methocarbamol 500 (units (unknown) date) mg tablet 500 mg PO unknown) Q8H PRN #14 tab 11/19/21 (unknown) (no (unknown) (unknown) metoprolol tartrate (unit s (unknown) date) 100 mg tablet 100 mg unknown) PO BID 10/16/18 10/08/21 (unknown) (no (unknown) (unknown) mg tablet (units (unkn own) date) (Percocet) unknown) (unknown) (no (unknown) (unknown) multivitamin (units (u nknown) date) (Multiple Vitamins) unknown) 1 tab PO DAILY #0 12/20/16 10/08/21 (unknown) (no (unknown) (unknown) nebulizers. He is (units (unknown) date) requesting albuterol unknown) to have at home as it seems to be (unknown) (no (unknown) (unknown) need follow-up with (unit s (unknown) date) his primary care unknown) provider before stopping his steroids to (unknown) (no (unknown) (unknown) nighttime. (units (unk nown) date) Negotiated a unknown) take-home pack only. (unknown) (no (unknown) (unknown) no rhonchi no (units ( unknown) date) crackles. Full and unknown) symmetrical air movement (unknown) (no (unknown) (unknown) nonproductive cough (unit s (unknown) date) with significant unknown) wheeze. No palpitations. With extensive (unknown) (no (unknown) (unknown) orthopnea but no (units (unknown) date) lower extremity unknown) edema. No fevers. Significant yet (unknown) (no (unknown) (unknown) oxycodone 5 mg (units (unknown) date) tablet 10 mg PO unknown) Q4-5H PRN #60 tab 11/06/20 (unknown) (no (unknown) (unknown) oxycodone-acetamino (unit s (unknown) date) phen 5 mg-325 1 tab unknown) PO Q8H PRN #10 tab 11/19/21 (unknown) (no (unknown) (unknown) oxycodone-acetamino (unit s (unknown) date) phen 5 mg-325 1 tab unknown) PO TID PRN #10 tab 11/19/21 (unknown) (no (unknown) (unknown) prednisone 20 mg (units (unknown) date) tablet 20 mg PO unknown) DAILY #32 tab 11/28/21 (unknown) (no (unknown) (unknown) prednisone 50 mg (units (unknown) date) tablet 50 mg PO unknown) DAILY #5 tab 11/19/21 (unknown) (no (unknown) (unknown) present.? (units (unkn own) date) unknown) (unknown) (no (unknown) (unknown) release 24 hr (units ( unknown) date) (Glucotrol XL) unknown) (unknown) (no (unknown) (unknown) solution for (units (u nknown) date) nebulization unknown) (unknown) (no (unknown) (unknown) solution for (units (u nknown) date) nebulization unknown) (unknown) (no (unknown) (unknown) spray,suspension (units (unknown) date) unknown) (unknown) (no (unknown) (unknown) substance use type: (unit s (unknown) date) does not use unknown) (unknown) (no (unknown) (unknown) tablet (units (unkno wn) date) unknown) (unknown) (no (unknown) (unknown) that his 5 days of (units (unknown) date) amoxicillin was not unknown) enough to ?cut it?. He reports no (unknown) (no (unknown) (unknown) that included in (units (unknown) date) the HPI. unknown) (unknown) (no (unknown) (unknown) the 93-95% range on (unit s (unknown) date) room air. unknown) (unknown) (no (unknown) (unknown) the emergency (units ( unknown) date) department he is unknown) given a partial L of normal saline, IV magnesium (unknown) (no (unknown) (unknown) the steroids. (units ( unknown) date) unknown) (unknown) (no (unknown) (unknown) trazodone 100 mg (units (unknown) date) tablet 400 tab PO unknown) BEDTIME 12/09/17 10/08/21 (unknown) (no (unknown) (unknown) unremarkable.? (units (unknown) date) unknown) (unknown) (no (unknown) (unknown) varenicline (units (un known) date) [VARENICLINE] unknown) AdvReac Severe Paranoia Verified 11/28/21 15:33 (unknown) (no (unknown) (unknown) very clearly (units (u nknown) date) explained to him unknown) that antibiotics are not indicated nor going to (unknown) (no (unknown) (unknown) working better and (units (unknown) date) nebulized form than unknown) the lev albuterol that he does have Result panel 22 (unknown) (no (unknown) (unknown) (no value) (units (unk nown) date) unknown) (unknown) (no (unknown) (unknown) [address] [place] [address] (units (unknown) date) unknown) (unknown) (no (unknown) (unknown) [place], [place] (units ( unknown) date) [id number] unknown) (unknown) (no (unknown) (unknown) CT Scan Report (units (unknown) date) unknown) (unknown) (no (unknown) (unknown) [facility] (units (unknown) date) unknown) (unknown) (no (unknown) (unknown) Signed (units (unkno wn) date) unknown) (unknown) (no (unknown) (unknown) (no value) (units (unk nown) date) unknown) (unknown) (no (unknown) (unknown) Minimal (units (unkno wn) date) anterolisthesis unknown) also demonstrated at T1-T2. Findings are similar to (unknown) (no (unknown) (unknown) 12/07/21 (units (unkno wn) date) unknown) (unknown) (no (unknown) (unknown) 1. No acute (units (u nknown) date) fracture or unknown) subluxation. (unknown) (no (unknown) (unknown) 1. No acute (units (un known) date) intracranial unknown) abnormality. (unknown) (no (unknown) (unknown) 2. Bony (units (unkno wn) date) remodeling in the unknown) left maxillary sinus redemonstrated consistent with (unknown) (no (unknown) (unknown) 2. Postsurgical (units (unknown) date) changes unknown) redemonstrated throughout the cervical spine with (unknown) (no (unknown) (unknown) 3. Mild cerebral (units (unknown) date) volume loss. unknown) (unknown) (no (unknown) (unknown) Approved by: (units (u nknown) date) Maxim Valadez, unknown) Clifford on 12/07/2021 at 21:44 (unknown) (no (unknown) (unknown) Approved by: (units (u nknown) date) Maxim Valadez, unknown) Clifford on 12/07/2021 at 21:48 (unknown) (no (unknown) (unknown) Bones: No (units (unk nown) date) fractures or unknown) subluxation. There is anterolisthesis at C2-C3 (unknown) (no (unknown) (unknown) Brain: No (units (unk nown) date) intracranial unknown) hemorrhage, mass, or mass effect. The adams-white (unknown) (no (unknown) (unknown) C4-C5 and C7-T1. (units (unknown) date) There is also unknown) fusion at C5-C6 and C6-C7. There is mild to (unknown) (no (unknown) (unknown) COMPARISON: (units (un known) date) [facility], unknown) CT, CT CERVICAL SPINE [facility], 04/16/2021, 12:21. (unknown) (no (unknown) (unknown) COMPARISON: (units (un known) date) [facility], unknown) CT, CT HEAD/BRAIN [facility], 04/16/2021, 12:21. (unknown) (no (unknown) (unknown) CSF spaces: (units (un known) date) Basal cisterns are unknown) patent. The ventricles are symmetric in size (unknown) (no (unknown) (unknown) Dictated by: (units (u nknown) date) Maxim Valadez, unknown) Clifford on 12/07/2021 at 21:42 (unknown) (no (unknown) (unknown) Dictated by: (units (u nknown) date) Maxim Valadez, unknown) Clifford on 12/07/2021 at 21:44 (unknown) (no (unknown) (unknown) FINDINGS: (units (unkn own) date) unknown) (unknown) (no (unknown) (unknown) IMPRESSION: (units (un known) date) unknown) (unknown) (no (unknown) (unknown) INDICATIONS: (units (u nknown) date) trauma unknown) (unknown) (no (unknown) (unknown) Image quality: (units (unknown) date) Excellent. unknown) (unknown) (no (unknown) (unknown) Image quality: (units (unknown) date) There is motion unknown) artifact limiting evaluation. (unknown) (no (unknown) (unknown) Noncontrast 3 mm (units (unknown) date) thick sections unknown) acquired from the skull base to the T4 level. (unknown) (no (unknown) (unknown) Noncontrast 4.5 (units (unknown) date) mm thick angled unknown) axial sections acquired from the foramen magnum (unknown) (no (unknown) (unknown) Sinuses: (units (unkno wn) date) Visualized sinuses unknown) redemonstrate wall thickening and mucoperiosteal (unknown) (no (unknown) (unknown) Skull and face: (units (unknown) date) Calvarium and unknown) visualized facial bones appear intact, without (unknown) (no (unknown) (unknown) Soft tissues: (units ( unknown) date) Prevertebral soft unknown) tissues are normal in thickness. No (unknown) (no (unknown) (unknown) TECHNIQUE: (units (unk nown) date) unknown) (unknown) (no (unknown) (unknown) There is a small (units (unknown) date) right choroidal unknown) fissure cyst redemonstrated. (unknown) (no (unknown) (unknown) There is mild (units ( unknown) date) cerebral volume unknown) loss, with resultant ventricular and sulcal (unknown) (no (unknown) (unknown) and coronal (units (un known) date) reformats were unknown) then constructed. For radiation dose reduction, the (unknown) (no (unknown) (unknown) appears (units (unkno wn) date) preserved. There unknown) is intracranial internal carotid artery (unknown) (no (unknown) (unknown) approximately 0.4 (units (unknown) date) cm and minimal unknown) anterolisthesis at C3-C4 measuring (unknown) (no (unknown) (unknown) arthropathy (units (un known) date) throughout the unknown) cervical spine. Visualized superior ribs are (unknown) (no (unknown) (unknown) chronic (units (unkno wn) date) sinusitis. unknown) (unknown) (no (unknown) (unknown) degeneration also (units (unknown) date) demonstrated at unknown) C2-C3 and C3-C4. There is multilevel (unknown) (no (unknown) (unknown) degenerative disc (units (unknown) date) disease within the unknown) visualized upper thoracic spine. Mild (unknown) (no (unknown) (unknown) hematomas. No (units (unknown) date) apical unknown) pneumothoraces. (unknown) (no (unknown) (unknown) lesions. (units (unkno wn) date) unknown) (unknown) (no (unknown) (unknown) mastoid air cells (units (unknown) date) are clear. unknown) (unknown) (no (unknown) (unknown) multiple levels (units (unknown) date) as described. unknown) (unknown) (no (unknown) (unknown) size. (units (unkno wn) date) unknown) (unknown) (no (unknown) (unknown) study. There are (units (unknown) date) postsurgical unknown) changes also redemonstrated status post prior (unknown) (no (unknown) (unknown) vertex, with (units (u nknown) date) coronal and unknown) sagittal reformats. For radiation dose reduction, the (unknown) (no (unknown) (unknown) was used: (units (unkn own) date) automated exposure unknown) control, adjustment of mA and/or kV according to (unknown) (no (unknown) (unknown) within the (units (unk nown) date) visualized left unknown) maxillary sinus suggesting sequelae of chronic (unknown) (no (unknown) (unknown) ACDF at (units (unkno wn) date) unknown) (unknown) (no (unknown) (unknown) Accession Number: (units (unknown) date) [id number] unknown) (unknown) (no (unknown) (unknown) Accession Number: (units (unknown) date) [id number] unknown) (unknown) (no (unknown) (unknown) Age/Sex: 76 / M (units (unknown) date) Date of Service: unknown) (unknown) (no (unknown) (unknown) : 1945 (units (unknown) date) Acct:[id number] unknown) (unknown) (no (unknown) (unknown) Loc: ED (units (unkno wn) date) unknown) (unknown) (no (unknown) (unknown) [id number] (units (unk nown) date) unknown) (unknown) (no (unknown) (unknown) Ordering (units (unkno wn) date) Provider: unknown) Jung Dejesus D.O. (unknown) (no (unknown) (unknown) PROCEDURE: CT (units (unknown) date) CERVICAL SPINE WO unknown) CON (unknown) (no (unknown) (unknown) PROCEDURE: CT (units (unknown) date) HEAD/BRAIN WO CON unknown) (unknown) (no (unknown) (unknown) Patient: (units (unkno wn) date) Dominic Viveros Gisele unknown) MR#: (unknown) (no (unknown) (unknown) Procedure: CT (units ( unknown) date) cervical spine wo unknown) con (unknown) (no (unknown) (unknown) Procedure: CT (units ( unknown) date) head/brain wo con unknown) (unknown) (no (unknown) (unknown) Sagittal (units (unkno wn) date) unknown) (unknown) (no (unknown) (unknown) and shape. (units (unk nown) date) unknown) (unknown) (no (unknown) (unknown) approximately 0.2 (units (unknown) date) cm. unknown) (unknown) (no (unknown) (unknown) atherosclerosis. (units (unknown) date) unknown) (unknown) (no (unknown) (unknown) disc (units (unkno wn) date) unknown) (unknown) (no (unknown) (unknown) following (units (unkn own) date) unknown) (unknown) (no (unknown) (unknown) fusion of (units (unkn own) date) unknown) (unknown) (no (unknown) (unknown) intact. (units (unkno wn) date) unknown) (unknown) (no (unknown) (unknown) matter junction (units (unknown) date) unknown) (unknown) (no (unknown) (unknown) measuring (units (unkn own) date) unknown) (unknown) (no (unknown) (unknown) moderate (units (unkno wn) date) unknown) (unknown) (no (unknown) (unknown) moderate facet (units (unknown) date) unknown) (unknown) (no (unknown) (unknown) paravertebral (units ( unknown) date) unknown) (unknown) (no (unknown) (unknown) patient (units (unkno wn) date) unknown) (unknown) (no (unknown) (unknown) prominence. (units (un known) date) unknown) (unknown) (no (unknown) (unknown) sequelae of (units (un known) date) unknown) (unknown) (no (unknown) (unknown) sinusitis. The (units (unknown) date) unknown) (unknown) (no (unknown) (unknown) suspicious (units (unk nown) date) unknown) (unknown) (no (unknown) (unknown) the prior (units (unkn own) date) unknown) (unknown) (no (unknown) (unknown) thickening (units (unk nown) date) unknown) (unknown) (no (unknown) (unknown) to the (units (unkno wn) date) unknown) Result panel 23 (unknown) (no date) (unknown) (unknown) 0.8 % (unkn own) (unknown) (no date) (unknown) (unknown) 100 /uL (unkn own) (unknown) (no date) (unknown) (unknown) 100 /uL (unkn own) (unknown) (no date) (unknown) (unknown) 13.7 % (unkn own) (unknown) (no date) (unknown) (unknown) 15.6 g/dL (unkn own) (unknown) (no date) (unknown) (unknown) 1700 /uL (unkn own) (unknown) (no date) (unknown) (unknown) 2.0 % (unkn own) (unknown) (no date) (unknown) (unknown) 23.0 % (unkn own) (unknown) (no date) (unknown) (unknown) 241 X10 3/uL (unkn own) (unknown) (no date) (unknown) (unknown) 31.7 PG (unkn own) (unknown) (no date) (unknown) (unknown) 34.0 % (unkn own) (unknown) (no date) (unknown) (unknown) 4.93 X10 6/uL (unkn own) (unknown) (no date) (unknown) (unknown) 46.0 % (unkn own) (unknown) (no date) (unknown) (unknown) 4800 /uL (unkn own) (unknown) (no date) (unknown) (unknown) 64.7 % (unkn own) (unknown) (no date) (unknown) (unknown) 7.4 X10 3/uL (unkn own) (unknown) (no date) (unknown) (unknown) 700 /uL (unkn own) (unknown) (no date) (unknown) (unknown) 9.5 % (unkn own) (unknown) (no date) (unknown) (unknown) 93.3 fL (unkn own) Result panel 24 (unknown) (no date) (unknown) (unknown) > 60 mL/min (unkn own) (unknown) (no date) (unknown) (unknown) < 1.0 mg/dL (unkn own) (unknown) (no date) (unknown) (unknown) < 10 ug/mL (unkn own) (unknown) (no date) (unknown) (unknown) 0.88 mg/dL (unkn own) (unknown) (no date) (unknown) (unknown) 0.9 mg/dL (unkn own) (unknown) (no date) (unknown) (unknown) 1.4 (units unknown) (unknown) (unknown) (no date) (unknown) (unknown) 104 mmol/L (unkn own) (unknown) (no date) (unknown) (unknown) 111 mg/dL (unkn own) (unknown) (no date) (unknown) (unknown) 124 mg/dL (unkn own) (unknown) (no date) (unknown) (unknown) 140 mmol/L (unkn own) (unknown) (no date) (unknown) (unknown) 2.3 mmol/L (unkn own) (unknown) (no date) (unknown) (unknown) 2.9 g/dL (unkn own) (unknown) (no date) (unknown) (unknown) 21 mg/dL (unkn own) (unknown) (no date) (unknown) (unknown) 23.9 (units unknown) (unknown) (unknown) (no date) (unknown) (unknown) 27 mmol/L (unkn own) (unknown) (no date) (unknown) (unknown) 31 IU/L (unkn own) (unknown) (no date) (unknown) (unknown) 32 IU/L (unkn own) (unknown) (no date) (unknown) (unknown) 4.1 g/dL (unkn own) (unknown) (no date) (unknown) (unknown) 4.5 mmol/L (unkn own) (unknown) (no date) (unknown) (unknown) 64 U/L (unkn own) (unknown) (no date) (unknown) (unknown) 7.0 g/dL (unkn own) (unknown) (no date) (unknown) (unknown) 8.4 mg/dL (unkn own) Result panel 25 (unknown) (no date) (unknown) (unknown) < 1.0 mg/dL (unkn own) (unknown) (no date) (unknown) (unknown) < 10 ug/mL (unkn own) Result panel 26 (unknown) (no date) (unknown) (unknown) Negative (units (unkn own) unknown) Result panel 27 (unknown) (no date) (unknown) (unknown) 2.07 uIU/mL (unkn own) Result panel 28 (unknown) (no date) (unknown) (unknown) 0.2 E.U./dL (unkn own) (unknown) (no date) (unknown) (unknown) 1.020 (units (unkn own) unknown) (unknown) (no date) (unknown) (unknown) 5.0 (units (unkn own) unknown) (unknown) (no date) (unknown) (unknown) CLEAR (units (unkn own) unknown) (unknown) (no date) (unknown) (unknown) NEGATIVE (units (unkn own) unknown) (unknown) (no date) (unknown) (unknown) NEGATIVE g/dL (unkn own) (unknown) (no date) (unknown) (unknown) Negative (units (unkn own) unknown) (unknown) (no date) (unknown) (unknown) Normal (units (unkn own) unknown) (unknown) (no date) (unknown) (unknown) Positive (units (unkn own) unknown) (unknown) (no date) (unknown) (unknown) TRACE (units (unkn own) unknown) (unknown) (no date) (unknown) (unknown) YELLOW (units (unkn own) unknown) Result panel 29 (unknown) (no date) (unknown) (unknown) 0-1 /HPF (units (unkn own) unknown) (unknown) (no date) (unknown) (unknown) 0.2 E.U./dL (unkn own) (unknown) (no date) (unknown) (unknown) 1.020 (units (unkn own) unknown) (unknown) (no date) (unknown) (unknown) 5.0 (units (unkn own) unknown) (unknown) (no date) (unknown) (unknown) CLEAR (units (unkn own) unknown) (unknown) (no date) (unknown) (unknown) Cult Not (units (unkn own) Indicated unknown) (unknown) (no date) (unknown) (unknown) NEGATIVE (units (unkn own) unknown) (unknown) (no date) (unknown) (unknown) NEGATIVE g/dL (unkn own) (unknown) (no date) (unknown) (unknown) None Seen (units (unk nown) unknown) (unknown) (no date) (unknown) (unknown) None Seen (units (unk nown) unknown) (unknown) (no date) (unknown) (unknown) TRACE (units (unkn own) unknown) (unknown) (no date) (unknown) (unknown) YELLOW (units (unkn own) unknown) Result panel 30 (unknown) (no (unknown) (unknown) (no value) (units (unk nown) date) unknown) (unknown) (no (unknown) (unknown) Date of Service: (units (unknown) date) 12/07/21 unknown) (unknown) (no (unknown) (unknown) (no value) (units (unk nown) date) unknown) (unknown) (no (unknown) (unknown) 12/07/21 23:05 (units (unknown) date) unknown) (unknown) (no (unknown) (unknown) 1 puff INHALATION (units (unknown) date) Q4-6H PRN (Reason: unknown) shortness of breath or wheezing) Qty: 15 (unknown) (no (unknown) (unknown) 1 spray Intranasal (units (unknown) date) DAILY PRN (Reason: unknown) Allergy Symptoms) Qty: 0 0RF (unknown) (no (unknown) (unknown) 1 tab PO DAILY (units (unknown) date) Qty: 0 0RF unknown) (unknown) (no (unknown) (unknown) 1 tab PO Q6HR PRN (units (unknown) date) (Reason: Back Pain) unknown) 0RF (unknown) (no (unknown) (unknown) 1 tab PO Q8H PRN (units (unknown) date) (Reason: pain) Qty: unknown) 10 0RF (unknown) (no (unknown) (unknown) 1 tab PO TID PRN (units (unknown) date) (Reason: pain) Qty: unknown) 10 0RF (unknown) (no (unknown) (unknown) 10 mg PO DAILY 0RF (units (unknown) date) unknown) (unknown) (no (unknown) (unknown) 10 mg PO Q4-5H PRN (units (unknown) date) (Reason: Pain, unknown) Severe (7-10)) Qty: 60 0RF (unknown) (no (unknown) (unknown) 100 mg PO BID 0RF (units (unknown) date) unknown) (unknown) (no (unknown) (unknown) 100 mg PO TID PRN (units (unknown) date) (Reason: cough) unknown) Qty: 14 0RF (unknown) (no (unknown) (unknown) 2 g topical QID (units (unknown) date) Qty: 100 0RF unknown) (unknown) (no (unknown) (unknown) 2.5 mg PO DAILY (units (unknown) date) 0RF unknown) (unknown) (no (unknown) (unknown) 2.5 mg inhalation (units (unknown) date) QID Qty: 90 1RF unknown) (unknown) (no (unknown) (unknown) 20 mg PO DAILY (units (unknown) date) Qty: 32 0RF unknown) (unknown) (no (unknown) (unknown) 25 mg PO QID PRN (units (unknown) date) (Reason: vertigo) unknown) Qty: 30 0RF (unknown) (no (unknown) (unknown) 3 ml Inhalation (units (unknown) date) Q6H PRN (Reason: unknown) Shortness Of Breath) 0RF (unknown) (no (unknown) (unknown) 300 mg PO BID Qty: (units (unknown) date) 20 0RF unknown) (unknown) (no (unknown) (unknown) 325 mg PO DAILY (units (unknown) date) 0RF unknown) (unknown) (no (unknown) (unknown) 40 mg PO DAILY 0RF (units (unknown) date) unknown) (unknown) (no (unknown) (unknown) 400 tab PO BEDTIME (units (unknown) date) 0RF unknown) (unknown) (no (unknown) (unknown) 50 mg PO DAILY (units (unknown) date) Qty: 5 0RF unknown) (unknown) (no (unknown) (unknown) 500 mg PO Q8H PRN (units (unknown) date) (Reason: muscle unknown) spasm) Qty: 14 0RF (unknown) (no (unknown) (unknown) 60mg x 5 day, 40mg (units (unknown) date) x 5 day, 20mg x5 unknown) day, 10mg x 4 days (unknown) (no (unknown) (unknown) 650 mg PO Q6H PRN (units (unknown) date) (Reason: pain) Qty: unknown) 60 0RF (unknown) (no (unknown) (unknown) ANXIETY, (units (unkno wn) date) unknown) (unknown) (no (unknown) (unknown) Allergies (units (unkn own) date) unknown) (unknown) (no (unknown) (unknown) DIZZINESS (units (unkn own) date) unknown) (unknown) (no (unknown) (unknown) Documented by: (units (unknown) date) RLAZANI unknown) (unknown) (no (unknown) (unknown) ED Orders (units (unkn own) date) unknown) (unknown) (no (unknown) (unknown) EXPOSURE (units (unkno wn) date) unknown) (unknown) (no (unknown) (unknown) Emergency Report (units (unknown) date) unknown) (unknown) (no (unknown) (unknown) Home Medications (units (unknown) date) unknown) (unknown) (no (unknown) (unknown) INHALE 1 VIAL PER (units (unknown) date) NEBULIZER EVERY 6 unknown) HOURS NEEDED (unknown) (no (unknown) (unknown) [facility] (units (unknown) date) [address] unknown) [place] [address] (unknown) (no (unknown) (unknown) JERKING, (units (unkno wn) date) unknown) (unknown) (no (unknown) (unknown) Lab Results (units (un known) date) unknown) (unknown) (no (unknown) (unknown) Label Comments: (units (unknown) date) unknown) (unknown) (no (unknown) (unknown) Last Admin: (units (un known) date) 12/07/21 23:25 unknown) Dose: 150 mls/hr (unknown) (no (unknown) (unknown) MINUTES (units (unkno wn) date) unknown) (unknown) (no (unknown) (unknown) NAUSEA W/I (units (unk nown) date) unknown) (unknown) (no (unknown) (unknown) Point of Care (units ( unknown) date) Testing unknown) (unknown) (no (unknown) (unknown) Previous Rx's (units ( unknown) date) unknown) (unknown) (no (unknown) (unknown) Rx Instructions: (units (unknown) date) unknown) (unknown) (no (unknown) (unknown) Spouse Milana (units (u nknown) date) called + reported unknown) patient not taking it regularly. (unknown) (no (unknown) (unknown) Vital Signs - 8 hr (units (unknown) date) unknown) (unknown) (no (unknown) (unknown) W/EXTENDED (units (unk nown) date) unknown) (unknown) (no (unknown) (unknown) apply to single (units (unknown) date) elbow, wrist or unknown) hand; for hand includes palm/fingers/back of (unknown) (no (unknown) (unknown) patient states (units (unknown) date) weaning off. unknown) (unknown) (no (unknown) (unknown) take 1 tablet by (units (unknown) date) mouth once daily unknown) (unknown) (no (unknown) (unknown) take 1 tablet by (units (unknown) date) mouth twice a day unknown) (unknown) (no (unknown) (unknown) (no value) (units (unk nown) date) unknown) (unknown) (no (unknown) (unknown) 12/07/21 12/07/21 (units (unknown) date) 12/07/21 unknown) Range/Units (unknown) (no (unknown) (unknown) 12/07/21 (units (unkno wn) date) Range/Units unknown) (unknown) (no (unknown) (unknown) 23:05 23:05 23:05 (units (unknown) date) unknown) (unknown) (no (unknown) (unknown) 23:05 23:44 23:57 (units (unknown) date) unknown) (unknown) (no (unknown) (unknown) 23:57 (units (unkno wn) date) unknown) (unknown) (no (unknown) (unknown) Zyrtec 10 mg (units (u nknown) date) Capsule unknown) (unknown) (no (unknown) (unknown) acetaminophen (units ( unknown) date) [Athenol] 325 mg unknown) tablet (unknown) (no (unknown) (unknown) acetaminophen-code (units (unknown) date) ine 300-30 mg unknown) tablet (unknown) (no (unknown) (unknown) albuterol sulfate (units (unknown) date) 1.25 mg/3 mL unknown) solution for nebulization (unknown) (no (unknown) (unknown) benzonatate (units (un known) date) [Tessalon Perles] unknown) 100 mg capsule (unknown) (no (unknown) (unknown) cefdinir 300 mg (units (unknown) date) capsule unknown) (unknown) (no (unknown) (unknown) diclofenac sodium (units (unknown) date) 1 % gel unknown) (unknown) (no (unknown) (unknown) ferrous sulfate (units (unknown) date) 325 mg (65 mg iron) unknown) tablet,delayed release (DR/EC) (unknown) (no (unknown) (unknown) fluticasone (units (un known) date) propionate 16 GM unknown) spray,suspension (unknown) (no (unknown) (unknown) furosemide [Lasix] (units (unknown) date) 40 mg tablet unknown) (unknown) (no (unknown) (unknown) glipizide (units (unkn own) date) [Glucotrol XL] 2.5 unknown) mg tablet extended release 24 hr (unknown) (no (unknown) (unknown) levalbuterol HCl (units (unknown) date) 1.25 mg/3 mL unknown) solution for nebulization (unknown) (no (unknown) (unknown) levalbuterol (units (u nknown) date) tartrate [Xopenex unknown) HFA] 45 mcg/actuation HFA aerosol inhaler (unknown) (no (unknown) (unknown) meclizine 25 mg (units (unknown) date) tablet unknown) (unknown) (no (unknown) (unknown) methocarbamol 500 (units (unknown) date) mg tablet unknown) (unknown) (no (unknown) (unknown) metoprolol (units (unk nown) date) tartrate 100 mg unknown) tablet (unknown) (no (unknown) (unknown) multivitamin (units (u nknown) date) [Multiple Vitamins] unknown) 1 EACH tablet (unknown) (no (unknown) (unknown) oxycodone 5 mg (units (unknown) date) Tablet unknown) (unknown) (no (unknown) (unknown) oxycodone-acetamin (units (unknown) date) ophen [Percocet] unknown) 5-325 mg tablet (unknown) (no (unknown) (unknown) prednisone 20 mg (units (unknown) date) tablet unknown) (unknown) (no (unknown) (unknown) prednisone 50 mg (units (unknown) date) tablet unknown) (unknown) (no (unknown) (unknown) trazodone 100 mg (units (unknown) date) tablet unknown) (unknown) (no (unknown) (unknown) 12/07/21 (units (unkno wn) date) unknown) (unknown) (no (unknown) (unknown) Medication (units (unk nown) date) Instructions unknown) Recorded (unknown) (no (unknown) (unknown) Medication (units (unk nown) date) Instructions unknown) Recorded Confirmed (unknown) (no (unknown) (unknown) (Athenol) (units (unkn own) date) unknown) (unknown) (no (unknown) (unknown) (Tessalon Perles) (units (unknown) date) unknown) (unknown) (no (unknown) (unknown) (Xopenex HFA) (units ( unknown) date) unknown) (unknown) (no (unknown) (unknown) [id number] (units (unkn own) date) unknown) (unknown) (no (unknown) (unknown) 12/07/21 20:28 (units (unknown) date) unknown) (unknown) (no (unknown) (unknown) 12/07/21 23:05 (units (unknown) date) unknown) (unknown) (no (unknown) (unknown) 12/07/21 23:21 (units (unknown) date) unknown) (unknown) (no (unknown) (unknown) 12/07/21 23:44 (units (unknown) date) unknown) (unknown) (no (unknown) (unknown) 12/07/21 23:57 (units (unknown) date) unknown) (unknown) (no (unknown) (unknown) 0RF (units (unkno wn) date) unknown) (unknown) (no (unknown) (unknown) 20:23 (units (unkno wn) date) unknown) (unknown) (no (unknown) (unknown) ALT (<50) (units ( unknown) date) IU/L unknown) (unknown) (no (unknown) (unknown) ALT (<50) IU/L (units (unknown) date) unknown) (unknown) (no (unknown) (unknown) ALT 31 (<50) (units (unknown) date) IU/L unknown) (unknown) (no (unknown) (unknown) ANTIBIOTICS)] (units ( unknown) date) unknown) (unknown) (no (unknown) (unknown) AST (17-59) (units (unknown) date) IU/L unknown) (unknown) (no (unknown) (unknown) AST (17-59) (units ( unknown) date) IU/L unknown) (unknown) (no (unknown) (unknown) AST 32 (17-59) (units (unknown) date) IU/L unknown) (unknown) (no (unknown) (unknown) Acetaminophen (units ( unknown) date) (10-30) ug/mL unknown) (unknown) (no (unknown) (unknown) Acetaminophen < (units (unknown) date) 10 (10-30) ug/mL unknown) (unknown) (no (unknown) (unknown) Acetaminophen (units ( unknown) date) (10-30) ug/mL unknown) (unknown) (no (unknown) (unknown) Acetaminophen Stat (units (unknown) date) unknown) (unknown) (no (unknown) (unknown) Achalasia (units (unkn own) date) unknown) (unknown) (no (unknown) (unknown) Age/Sex: 76 / M (units (unknown) date) unknown) (unknown) (no (unknown) (unknown) Albumin (units (unkno wn) date) (3.5-5.0) g/dL unknown) (unknown) (no (unknown) (unknown) Albumin (units (unkno wn) date) (3.5-5.0) g/dL unknown) (unknown) (no (unknown) (unknown) Albumin 4.1 (units ( unknown) date) (3.5-5.0) g/dL unknown) (unknown) (no (unknown) (unknown) Albumin/Globulin (units (unknown) date) Ratio (1.0-2.8) unknown) (unknown) (no (unknown) (unknown) Albumin/Globulin (units (unknown) date) Ratio (1.0-2.8) unknown) (unknown) (no (unknown) (unknown) Albumin/Globulin (units (unknown) date) Ratio 1.4 unknown) (1.0-2.8) (unknown) (no (unknown) (unknown) Alkaline (units (unkno wn) date) Phosphatase unknown) (38-126) U/L (unknown) (no (unknown) (unknown) Alkaline (units (unkno wn) date) Phosphatase unknown) (38-126) U/L (unknown) (no (unknown) (unknown) Alkaline (units (unkno wn) date) Phosphatase 64 unknown) (38-126) U/L (unknown) (no (unknown) (unknown) Allergy/AdvReac (units (unknown) date) Type Severity unknown) Reaction Status Date / Time (unknown) (no (unknown) (unknown) Anginal pain (units (u nknown) date) unknown) (unknown) (no (unknown) (unknown) Antibiotics) (units (u nknown) date) unknown) (unknown) (no (unknown) (unknown) Asthma (units (unkno wn) date) unknown) (unknown) (no (unknown) (unknown) Atrial (units (unkno wn) date) fibrillation unknown) (unknown) (no (unknown) (unknown) BUN (9-20) (units (unknown) date) mg/dL unknown) (unknown) (no (unknown) (unknown) BUN (9-20) (units (u nknown) date) mg/dL unknown) (unknown) (no (unknown) (unknown) BUN 21 H (units (unk nown) date) (9-20) mg/dL unknown) (unknown) (no (unknown) (unknown) BUN/Creatinine (units (unknown) date) Ratio (6-22) unknown) (unknown) (no (unknown) (unknown) BUN/Creatinine (units (unknown) date) Ratio (6-22) unknown) (unknown) (no (unknown) (unknown) BUN/Creatinine (units (unknown) date) Ratio 23.9 H unknown) (6-22) (unknown) (no (unknown) (unknown) Baso # (Auto) (units ( unknown) date) (0-100) /uL unknown) (unknown) (no (unknown) (unknown) Baso # (Auto) (units ( unknown) date) (0-100) /uL unknown) (unknown) (no (unknown) (unknown) Baso # (Auto) 100 (units (unknown) date) (0-100) /uL unknown) (unknown) (no (unknown) (unknown) Baso % (Auto) (units ( unknown) date) (0-2) % unknown) (unknown) (no (unknown) (unknown) Baso % (Auto) (units ( unknown) date) (0-2) % unknown) (unknown) (no (unknown) (unknown) Baso % (Auto) 0.8 (units (unknown) date) (0-2) % unknown) (unknown) (no (unknown) (unknown) Blood Culture Stat (units (unknown) date) unknown) (unknown) (no (unknown) (unknown) Blood Pressure (units (unknown) date) 159/98 H 12/07/21 unknown) 20:23 (unknown) (no (unknown) (unknown) Blood Pressure (units (unknown) date) 159/98 H unknown) (unknown) (no (unknown) (unknown) COPD (chronic (units ( unknown) date) obstructive unknown) pulmonary disease) (unknown) (no (unknown) (unknown) COVID19 -Nasal (units (unknown) date) RAPID/Pre-Proc Stat unknown) (unknown) (no (unknown) (unknown) CT cervical spine (units (unknown) date) wo con Stat unknown) (unknown) (no (unknown) (unknown) CT head/brain wo (units (unknown) date) con Stat unknown) (unknown) (no (unknown) (unknown) Calcium (units (o wn) date) (8.4-10.2) mg/dL unknown) (unknown) (no (unknown) (unknown) Calcium (units (o wn) date) (8.4-10.2) mg/dL unknown) (unknown) (no (unknown) (unknown) Calcium 8.4 (units ( unknown) date) (8.4-10.2) mg/dL unknown) (unknown) (no (unknown) (unknown) Carbon Dioxide (units (unknown) date) (22-32) mmol/L unknown) (unknown) (no (unknown) (unknown) Carbon Dioxide (units (unknown) date) (22-32) mmol/L unknown) (unknown) (no (unknown) (unknown) Carbon Dioxide (units (unknown) date) 27 (22-32) unknown) mmol/L (unknown) (no (unknown) (unknown) Cervical spinal (units (unknown) date) stenosis unknown) (unknown) (no (unknown) (unknown) Chief Complaint: (units (unknown) date) Trauma unknown) (unknown) (no (unknown) (unknown) Chloride (units ( wn) date) (98-107) mmol/L unknown) (unknown) (no (unknown) (unknown) Chloride (units (o wn) date) (98-107) mmol/L unknown) (unknown) (no (unknown) (unknown) Chloride 104 (units (unknown) date) (98-107) mmol/L unknown) (unknown) (no (unknown) (unknown) Chronic (units (o wn) date) obstructive unknown) pulmonary disease (10/22/16) (unknown) (no (unknown) (unknown) Complete Blood (units (unknown) date) Count AUTO DIFF unknown) Stat (unknown) (no (unknown) (unknown) Comprehensive (units ( unknown) date) Metabolic Panel unknown) Stat (unknown) (no (unknown) (unknown) Coronary artery (units (unknown) date) disease unknown) (unknown) (no (unknown) (unknown) Course (units (o wn) date) unknown) (unknown) (no (unknown) (unknown) Creatinine (units (unk nown) date) (0.66-1.25) mg/dL unknown) (unknown) (no (unknown) (unknown) Creatinine (units (unk nown) date) (0.66-1.25) mg/dL unknown) (unknown) (no (unknown) (unknown) Creatinine 0.88 (units (unknown) date) (0.66-1.25) mg/dL unknown) (unknown) (no (unknown) (unknown) : 1945 (units (unknown) date) Acct:[id number] unknown) (unknown) (no (unknown) (unknown) Kimmy Gomez MD (units (unknown) date) [Primary Care unknown) Provider] - (unknown) (no (unknown) (unknown) Departure (units (unkn own) date) unknown) (unknown) (no (unknown) (unknown) Discharge Plan (units (unknown) date) unknown) (unknown) (no (unknown) (unknown) ER Physician: (units ( unknown) date) Jung Dejesus D.O. unknown) (unknown) (no (unknown) (unknown) Eos # (Auto) (units (u nknown) date) (0-450) /uL unknown) (unknown) (no (unknown) (unknown) Eos # (Auto) (units (u nknown) date) (0-450) /uL unknown) (unknown) (no (unknown) (unknown) Eos # (Auto) 100 (units (unknown) date) (0-450) /uL unknown) (unknown) (no (unknown) (unknown) Eos % (Auto) (units (u nknown) date) (2-4) % unknown) (unknown) (no (unknown) (unknown) Eos % (Auto) (units (u nknown) date) (2-4) % unknown) (unknown) (no (unknown) (unknown) Eos % (Auto) 2.0 (units (unknown) date) (2-4) % unknown) (unknown) (no (unknown) (unknown) Estimated GFR (units ( unknown) date) (>60) mL/min unknown) (unknown) (no (unknown) (unknown) Estimated GFR > (units (unknown) date) 60 (>60) mL/min unknown) (unknown) (no (unknown) (unknown) Estimated GFR (units ( unknown) date) (>60) mL/min unknown) (unknown) (no (unknown) (unknown) Ethanol (ETOH) (units (unknown) date) Stat unknown) (unknown) (no (unknown) (unknown) Ethyl Alcohol ( (units (unknown) date) - 10) mg/dL unknown) (unknown) (no (unknown) (unknown) Ethyl Alcohol (units ( unknown) date) 111 H ( - 10) unknown) mg/dL (unknown) (no (unknown) (unknown) Ethyl Alcohol ( - (units (unknown) date) 10) mg/dL unknown) (unknown) (no (unknown) (unknown) Exam (units (unkno wn) date) unknown) (unknown) (no (unknown) (unknown) Family History (units (unknown) date) (Reviewed 11/28/21 unknown) @ 18:47 by Sarita Tapia MD) (unknown) (no (unknown) (unknown) General (units (unkno wn) date) unknown) (unknown) (no (unknown) (unknown) GenericComposite[P (units (unknown) date) lt Count unknown) (150-400) X10^3/uL ] (unknown) (no (unknown) (unknown) GenericComposite[P (units (unknown) date) lt Count unknown) (150-400) X10^3/uL ] (unknown) (no (unknown) (unknown) GenericComposite[P (units (unknown) date) lt Count 241 unknown) (150-400) X10^3/uL ] (unknown) (no (unknown) (unknown) GenericComposite[R (units (unknown) date) BC (4.5-5.9) unknown) X10^6/uL ] (unknown) (no (unknown) (unknown) GenericComposite[R (units (unknown) date) BC (4.5-5.9) unknown) X10^6/uL ] (unknown) (no (unknown) (unknown) GenericComposite[R (units (unknown) date) BC 4.93 unknown) (4.5-5.9) X10^6/uL ] (unknown) (no (unknown) (unknown) GenericComposite[W (units (unknown) date) BC (4.5-11.0) unknown) X10^3/uL ] (unknown) (no (unknown) (unknown) GenericComposite[W (units (unknown) date) BC (4.5-11.0) unknown) X10^3/uL ] (unknown) (no (unknown) (unknown) GenericComposite[W (units (unknown) date) BC 7.4 unknown) (4.5-11.0) X10^3/uL ] (unknown) (no (unknown) (unknown) Globulin (units (unkno wn) date) (1.7-4.1) g/dL unknown) (unknown) (no (unknown) (unknown) Globulin (units (unkno wn) date) (1.7-4.1) g/dL unknown) (unknown) (no (unknown) (unknown) Globulin 2.9 (units (unknown) date) (1.7-4.1) g/dL unknown) (unknown) (no (unknown) (unknown) Glucose (units (unkno wn) date) (80-110) mg/dL unknown) (unknown) (no (unknown) (unknown) Glucose (80-110) (units (unknown) date) mg/dL unknown) (unknown) (no (unknown) (unknown) Glucose 124 H (units (unknown) date) (80-110) mg/dL unknown) (unknown) (no (unknown) (unknown) Glucose POC 118 (units (unknown) date) unknown) (unknown) (no (unknown) (unknown) H/O arthroscopic (units (unknown) date) knee surgery unknown) (11/14/17) (unknown) (no (unknown) (unknown) HPI - Fall (units (unk nown) date) unknown) (unknown) (no (unknown) (unknown) Hct (41-53) % (units (unknown) date) unknown) (unknown) (no (unknown) (unknown) Hct (41-53) % (units (unknown) date) unknown) (unknown) (no (unknown) (unknown) Hct 46.0 (units (unkn own) date) (41-53) % unknown) (unknown) (no (unknown) (unknown) Hgb (units (unkno wn) date) (13.5-17.5) g/dL unknown) (unknown) (no (unknown) (unknown) Hgb (13.5-17.5) (units (unknown) date) g/dL unknown) (unknown) (no (unknown) (unknown) Hgb 15.6 (units (unkn own) date) (13.5-17.5) g/dL unknown) (unknown) (no (unknown) (unknown) History of aortic (units (unknown) date) dissection unknown) () (unknown) (no (unknown) (unknown) History of (units (unk nown) date) arthroplasty of unknown) right knee (unknown) (no (unknown) (unknown) 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 (unknown) (no (unknown) (unknown) History of cardiac (units (unknown) date) cath () unknown) (unknown) (no (unknown) (unknown) History of (units (unk nown) date) esophageal surgery unknown) (unknown) (no (unknown) (unknown) History of (units (unk nown) date) incision and unknown) drainage () (unknown) (no (unknown) (unknown) History of prior (units (unknown) date) ablation treatment unknown) () (unknown) (no (unknown) (unknown) History of surgery (units (unknown) date) unknown) (unknown) (no (unknown) (unknown) Hx of (units (unkno wn) date) cholecystectomy unknown) (unknown) (no (unknown) (unknown) Hx of hernia (units (u nknown) date) repair unknown) (unknown) (no (unknown) (unknown) Hx of sinus (units (un known) date) surgery unknown) (unknown) (no (unknown) (unknown) Hypertension (units (u nknown) date) unknown) (unknown) (no (unknown) (unknown) INHIBITOR] (units (unk nown) date) unknown) (unknown) (no (unknown) (unknown) Inhibitor (units (unkn own) date) MUSCLES unknown) (unknown) (no (unknown) (unknown) Initial Vital (units ( unknown) date) Signs unknown) (unknown) (no (unknown) (unknown) Initial Vital (units ( unknown) date) Signs: unknown) (unknown) (no (unknown) (unknown) Ischemic (units (unkno wn) date) cardiomyopathy unknown) (unknown) (no (unknown) (unknown) Lab Data (units (unkno wn) date) unknown) (unknown) (no (unknown) (unknown) Labs: (units (unkno wn) date) unknown) (unknown) (no (unknown) (unknown) Lactate (units (unkno wn) date) (0.7-2.1) mmol/L unknown) (unknown) (no (unknown) (unknown) Lactate 2.3 H (units (unknown) date) (0.7-2.1) mmol/L unknown) (unknown) (no (unknown) (unknown) Lactate (units (unkno wn) date) (0.7-2.1) mmol/L unknown) (unknown) (no (unknown) (unknown) Lactate (Lactic (units (unknown) date) Acid) Stat unknown) (unknown) (no (unknown) (unknown) Lymph # (Auto) (units (unknown) date) (3621-5874) /uL unknown) (unknown) (no (unknown) (unknown) Lymph # (Auto) (units (unknown) date) (2659-7101) /uL unknown) (unknown) (no (unknown) (unknown) Lymph # (Auto) (units (unknown) date) 1700 (0172-4299) unknown) /uL (unknown) (no (unknown) (unknown) Lymph % (Auto) (units (unknown) date) (25-40) % unknown) (unknown) (no (unknown) (unknown) Lymph % (Auto) (units (unknown) date) (25-40) % unknown) (unknown) (no (unknown) (unknown) Lymph % (Auto) (units (unknown) date) 23.0 L (25-40) unknown) % (unknown) (no (unknown) (unknown) MCH (26-34) (units (unknown) date) PG unknown) (unknown) (no (unknown) (unknown) MCH (26-34) PG (units (unknown) date) unknown) (unknown) (no (unknown) (unknown) MCH 31.7 (units (unkn own) date) (26-34) PG unknown) (unknown) (no (unknown) (unknown) MCHC (30-36) (units (unknown) date) % unknown) (unknown) (no (unknown) (unknown) MCHC (30-36) % (units (unknown) date) unknown) (unknown) (no (unknown) (unknown) MCHC 34.0 (units (unk nown) date) (30-36) % unknown) (unknown) (no (unknown) (unknown) MCV (80-100) (units (unknown) date) fL unknown) (unknown) (no (unknown) (unknown) MCV (80-100) fL (units (unknown) date) unknown) (unknown) (no (unknown) (unknown) MCV 93.3 (units (unkn own) date) (80-100) fL unknown) (unknown) (no (unknown) (unknown) MDM - Fall (units (unk nown) date) unknown) (unknown) (no (unknown) (unknown) Medical History (units (unknown) date) (Reviewed 11/28/21 unknown) @ 18:47 by Sarita Tapia MD) (unknown) (no (unknown) (unknown) Mode of arrival: (units (unknown) date) EMS unknown) (unknown) (no (unknown) (unknown) [place] # (Auto) (units ( unknown) date) (0-900) /uL unknown) (unknown) (no (unknown) (unknown) [place] # (Auto) (units ( unknown) date) (0-900) /uL unknown) (unknown) (no (unknown) (unknown) [place] # (Auto) 700 (units (unknown) date) (0-900) /uL unknown) (unknown) (no (unknown) (unknown) [place] % (Auto) (units ( unknown) date) (3-14) % unknown) (unknown) (no (unknown) (unknown) [place] % (Auto) (units ( unknown) date) (3-14) % unknown) (unknown) (no (unknown) (unknown) [place] % (Auto) 9.5 (units (unknown) date) (3-14) % unknown) (unknown) (no (unknown) (unknown) Mother (units (unknown) date) Stroke unknown) (unknown) (no (unknown) (unknown) Narcotic (units (unkno wn) date) dependence unknown) (unknown) (no (unknown) (unknown) Neck pain, chronic (units (unknown) date) unknown) (unknown) (no (unknown) (unknown) Neut # (Auto) (units ( unknown) date) (5468-1044) /uL unknown) (unknown) (no (unknown) (unknown) Neut # (Auto) (units ( unknown) date) (5392-9220) /uL unknown) (unknown) (no (unknown) (unknown) Neut # (Auto) (units ( unknown) date) 4800 (8774-3970) unknown) /uL (unknown) (no (unknown) (unknown) Neut % (Auto) (units ( unknown) date) (50-75) % unknown) (unknown) (no (unknown) (unknown) Neut % (Auto) (units ( unknown) date) (50-75) % unknown) (unknown) (no (unknown) (unknown) Neut % (Auto) (units ( unknown) date) 64.7 (50-75) % unknown) (unknown) (no (unknown) (unknown) No Action (units (unkn own) date) unknown) (unknown) (no (unknown) (unknown) Ordered: (units (unkno wn) date) unknown) (unknown) (no (unknown) (unknown) Orders (units (unkno wn) date) unknown) (unknown) (no (unknown) (unknown) Patient History (units (unknown) date) unknown) (unknown) (no (unknown) (unknown) Patient: (units (unkno wn) date) Dominic Viveros unknown) MR#: M (unknown) (no (unknown) (unknown) Potassium (units (unkn own) date) (3.4-5.1) mmol/L unknown) (unknown) (no (unknown) (unknown) Potassium (units (unkn own) date) (3.4-5.1) mmol/L unknown) (unknown) (no (unknown) (unknown) Potassium 4.5 (units (unknown) date) (3.4-5.1) mmol/L unknown) (unknown) (no (unknown) (unknown) Prescriptions: (units (unknown) date) unknown) (unknown) (no (unknown) (unknown) Prolactin (units (unkn own) date) (3.7-17.9) ng/mL unknown) (unknown) (no (unknown) (unknown) Prolactin (units (unkn own) date) (3.7-17.9) ng/mL unknown) (unknown) (no (unknown) (unknown) Prolactin 18.9 H (units (unknown) date) (3.7-17.9) ng/mL unknown) (unknown) (no (unknown) (unknown) Prolactin Stat (units (unknown) date) unknown) (unknown) (no (unknown) (unknown) Pulse Oximetry 92 (units (unknown) date) 12/07/21 20:23 unknown) (unknown) (no (unknown) (unknown) Pulse Oximetry 92 (units (unknown) date) unknown) (unknown) (no (unknown) (unknown) Pulse Rate 88 (units (unknown) date) 12/07/21 20:23 unknown) (unknown) (no (unknown) (unknown) Pulse Rate 88 (units ( unknown) date) unknown) (unknown) (no (unknown) (unknown) RDW (units (unkno wn) date) (11.6-14.8) % unknown) (unknown) (no (unknown) (unknown) RDW (11.6-14.8) (units (unknown) date) % unknown) (unknown) (no (unknown) (unknown) RDW 13.7 (units (unkn own) date) (11.6-14.8) % unknown) (unknown) (no (unknown) (unknown) Referrals: (units (unk nown) date) unknown) (unknown) (no (unknown) (unknown) Related Data (units (u nknown) date) unknown) (unknown) (no (unknown) (unknown) Respiratory Rate (units (unknown) date) 22 12/07/21 20:23 unknown) (unknown) (no (unknown) (unknown) Respiratory Rate (units (unknown) date) 22 unknown) (unknown) (no (unknown) (unknown) Result diagrams: (units (unknown) date) unknown) (unknown) (no (unknown) (unknown) S/P CABG x 3 (units (u nknown) date) (-08/2007) unknown) (unknown) (no (unknown) (unknown) S/P cervical (units (u nknown) date) spinal fusion unknown) (unknown) (no (unknown) (unknown) S/P lumbar fusion (units (unknown) date) unknown) (unknown) (no (unknown) (unknown) SARS-CoV-2 (PCR) (units (unknown) date) (Negative) unknown) (unknown) (no (unknown) (unknown) SARS-CoV-2 (PCR) (units (unknown) date) (Negative) unknown) (unknown) (no (unknown) (unknown) SARS-CoV-2 (PCR) (units (unknown) date) Negative unknown) (Negative) (unknown) (no (unknown) (unknown) Salicylate Stat (units (unknown) date) unknown) (unknown) (no (unknown) (unknown) Salicylates (units (un known) date) (<20) mg/dL unknown) (unknown) (no (unknown) (unknown) Salicylates < (units (unknown) date) 1.0 (<20) mg/dL unknown) (unknown) (no (unknown) (unknown) Salicylates (units (un known) date) (<20) mg/dL unknown) (unknown) (no (unknown) (unknown) Signed By: (units (unk nown) date) unknown) (unknown) (no (unknown) (unknown) Smoking Status: (units (unknown) date) Former smoker unknown) (unknown) (no (unknown) (unknown) Smoking Status: (units (unknown) date) Former smoker unknown) (unknown) (no (unknown) (unknown) Social History (units (unknown) date) (Reviewed 11/28/21 unknown) @ 18:47 by Sarita Tapia MD) (unknown) (no (unknown) (unknown) Sodium (units (unkno wn) date) (137-145) mmol/L unknown) (unknown) (no (unknown) (unknown) Sodium (137-145) (units (unknown) date) mmol/L unknown) (unknown) (no (unknown) (unknown) Sodium 140 (units (u nknown) date) (137-145) mmol/L unknown) (unknown) (no (unknown) (unknown) Sodium Chloride (units (unknown) date) (Normal Saline unknown) 0.9%) 1,000 mls @ 150 mls/hr IV CONT BLOSSOM (unknown) (no (unknown) (unknown) Source: patient, (units (unknown) date) family and EMS unknown) (unknown) (no (unknown) (unknown) Stated Complaint: (units (unknown) date) Back Pain unknown) (unknown) (no (unknown) (unknown) Ncedgih-OEE-JsN (units (unknown) date) Reductase AdvReac unknown) Mild WEAK Verified 11/28/21 15:33 (unknown) (no (unknown) (unknown) Substance Use (units ( unknown) date) Type: does not use unknown) (unknown) (no (unknown) (unknown) Sulfa (Sulfonamide (units (unknown) date) Allergy Mild RASH unknown) Verified 11/28/21 15:33 (unknown) (no (unknown) (unknown) Surgical History (units (unknown) date) (Reviewed 11/28/21 unknown) @ 18:47 by Sarita Tapia MD) (unknown) (no (unknown) (unknown) TSH (units (unkno wn) date) (0.47-4.68) uIU/mL unknown) (unknown) (no (unknown) (unknown) TSH (0.47-4.68) (units (unknown) date) uIU/mL unknown) (unknown) (no (unknown) (unknown) TSH 2.07 (units (unkn own) date) (0.47-4.68) uIU/mL unknown) (unknown) (no (unknown) (unknown) Temperature 97.4 (units (unknown) date) F L 12/07/21 20:23 unknown) (unknown) (no (unknown) (unknown) Temperature 97.4 F (units (unknown) date) L unknown) (unknown) (no (unknown) (unknown) Thyroid (units (unkno wn) date) Stimulating Hormone unknown) Stat (unknown) (no (unknown) (unknown) Time Seen by (units (u nknown) date) Provider: 12/07/21 unknown) 20:22 (unknown) (no (unknown) (unknown) Total Bilirubin (units (unknown) date) (0.2-1.3) mg/dL unknown) (unknown) (no (unknown) (unknown) Total Bilirubin (units (unknown) date) (0.2-1.3) mg/dL unknown) (unknown) (no (unknown) (unknown) Total Bilirubin (units (unknown) date) 0.9 (0.2-1.3) unknown) mg/dL (unknown) (no (unknown) (unknown) Total Protein (units ( unknown) date) (6.3-8.2) g/dL unknown) (unknown) (no (unknown) (unknown) Total Protein (units ( unknown) date) (6.3-8.2) g/dL unknown) (unknown) (no (unknown) (unknown) Total Protein (units ( unknown) date) 7.0 (6.3-8.2) unknown) g/dL (unknown) (no (unknown) (unknown) U Benzodiazepines (units (unknown) date) Scrn (Negative) unknown) (unknown) (no (unknown) (unknown) U Benzodiazepines (units (unknown) date) Scrn Positive H unknown) (Negative) (unknown) (no (unknown) (unknown) U Marijuana (THC) (units (unknown) date) Screen unknown) (Negative) (unknown) (no (unknown) (unknown) U Marijuana (THC) (units (unknown) date) Screen Negative unknown) (Negative) (unknown) (no (unknown) (unknown) U Methamphetamines (units (unknown) date) Scrn (Negative) unknown) (unknown) (no (unknown) (unknown) U Methamphetamines (units (unknown) date) Scrn Negative unknown) (Negative) (unknown) (no (unknown) (unknown) U Opiates 300ng/mL (units (unknown) date) cut (Negative) unknown) (unknown) (no (unknown) (unknown) U Opiates 300ng/mL (units (unknown) date) cut Positive H unknown) (Negative) (unknown) (no (unknown) (unknown) U Tricyclic (units (un known) date) Antidepress unknown) (Negative) (unknown) (no (unknown) (unknown) U Tricyclic (units (un known) date) Antidepress unknown) Negative (Negative) (unknown) (no (unknown) (unknown) Ur Amphetamines (units (unknown) date) Screen unknown) (Negative) (unknown) (no (unknown) (unknown) Ur Amphetamines (units (unknown) date) Screen Negative unknown) (Negative) (unknown) (no (unknown) (unknown) Ur Barbiturates (units (unknown) date) Screen unknown) (Negative) (unknown) (no (unknown) (unknown) Ur Barbiturates (units (unknown) date) Screen Negative unknown) (Negative) (unknown) (no (unknown) (unknown) Ur Culture (units (unk nown) date) Indicated? unknown) (unknown) (no (unknown) (unknown) Ur Culture (units (unk nown) date) Indicated? unknown) (unknown) (no (unknown) (unknown) Ur Culture (units (unk nown) date) Indicated? Cult unknown) not indicated (unknown) (no (unknown) (unknown) Ur Leukocyte (units (u nknown) date) Esterase unknown) (NEGATIVE) (unknown) (no (unknown) (unknown) Ur Leukocyte (units (u nknown) date) Esterase unknown) Negative (NEGATIVE) (unknown) (no (unknown) (unknown) Ur Leukocyte (units (u nknown) date) Esterase unknown) (NEGATIVE) (unknown) (no (unknown) (unknown) Ur MDMA Scrn (units (u nknown) date) (Ecstasy) unknown) (Negative) (unknown) (no (unknown) (unknown) Ur MDMA Scrn (units (u nknown) date) (Ecstasy) Negative unknown) (Negative) (unknown) (no (unknown) (unknown) Ur Oxycodone (units (u nknown) date) Screen unknown) (Negative) (unknown) (no (unknown) (unknown) Ur Oxycodone (units (u nknown) date) Screen Negative unknown) (Negative) (unknown) (no (unknown) (unknown) Ur Phencyclidine (units (unknown) date) Scrn (Negative) unknown) (unknown) (no (unknown) (unknown) Ur Phencyclidine (units (unknown) date) Scrn Negative unknown) (Negative) (unknown) (no (unknown) (unknown) Ur Specific (units (un known) date) Falcon unknown) (1.000-1.035) (unknown) (no (unknown) (unknown) Ur Specific (units (un known) date) Falcon 1.020 unknown) (1.000-1.035) (unknown) (no (unknown) (unknown) Ur Specific (units (un known) date) Falcon unknown) (1.000-1.035) (unknown) (no (unknown) (unknown) Ur Squamous Epith (units (unknown) date) Cells (0-5/HPF) unknown) (unknown) (no (unknown) (unknown) Ur Squamous Epith (units (unknown) date) Cells 0-1 /hpf unknown) (0-5/HPF) (unknown) (no (unknown) (unknown) Ur Squamous Epith (units (unknown) date) Cells (0-5/HPF) unknown) (unknown) (no (unknown) (unknown) Urinalysis and (units (unknown) date) Microscopic Stat unknown) (unknown) (no (unknown) (unknown) Urine Appearance (units (unknown) date) unknown) (unknown) (no (unknown) (unknown) Urine Appearance (units (unknown) date) unknown) (unknown) (no (unknown) (unknown) Urine Appearance (units (unknown) date) Clear unknown) (unknown) (no (unknown) (unknown) Urine Bacteria (units (unknown) date) (None) unknown) (unknown) (no (unknown) (unknown) Urine Bacteria (units (unknown) date) None seen (None) unknown) (unknown) (no (unknown) (unknown) Urine Bacteria (units (unknown) date) (None) unknown) (unknown) (no (unknown) (unknown) Urine Bilirubin (units (unknown) date) (NEGATIVE) unknown) (unknown) (no (unknown) (unknown) Urine Bilirubin (units (unknown) date) Negative unknown) (NEGATIVE) (unknown) (no (unknown) (unknown) Urine Bilirubin (units (unknown) date) (NEGATIVE) unknown) (unknown) (no (unknown) (unknown) Urine Cocaine (units ( unknown) date) Screen unknown) (Negative) (unknown) (no (unknown) (unknown) Urine Cocaine (units ( unknown) date) Screen Negative unknown) (Negative) (unknown) (no (unknown) (unknown) Urine Color (units (un known) date) unknown) (unknown) (no (unknown) (unknown) Urine Color (units (un known) date) unknown) (unknown) (no (unknown) (unknown) Urine Color (units (un known) date) Yellow unknown) (unknown) (no (unknown) (unknown) Urine Drug Screen, (units (unknown) date) Rapid Stat unknown) (unknown) (no (unknown) (unknown) Urine Glucose (UA) (units (unknown) date) (Negative) unknown) g/dL (unknown) (no (unknown) (unknown) Urine Glucose (UA) (units (unknown) date) Negative unknown) (Negative) g/dL (unknown) (no (unknown) (unknown) Urine Glucose (UA) (units (unknown) date) (Negative) g/dL unknown) (unknown) (no (unknown) (unknown) Urine Ketones (units ( unknown) date) (NEGATIVE) unknown) (unknown) (no (unknown) (unknown) Urine Ketones (units ( unknown) date) Trace H (NEGATIVE) unknown) (unknown) (no (unknown) (unknown) Urine Ketones (units ( unknown) date) (NEGATIVE) unknown) (unknown) (no (unknown) (unknown) Urine Methadone (units (unknown) date) Screen unknown) (Negative) (unknown) (no (unknown) (unknown) Urine Methadone (units (unknown) date) Screen Negative unknown) (Negative) (unknown) (no (unknown) (unknown) Urine Nitrate (units ( unknown) date) (Negative) unknown) (unknown) (no (unknown) (unknown) Urine Nitrate (units ( unknown) date) Negative unknown) (Negative) (unknown) (no (unknown) (unknown) Urine Nitrate (units ( unknown) date) (Negative) unknown) (unknown) (no (unknown) (unknown) Urine Occult Blood (units (unknown) date) (Negative) unknown) (unknown) (no (unknown) (unknown) Urine Occult Blood (units (unknown) date) Negative unknown) (Negative) (unknown) (no (unknown) (unknown) Urine Occult Blood (units (unknown) date) (Negative) unknown) (unknown) (no (unknown) (unknown) Urine Protein (units ( unknown) date) (Negative) unknown) (unknown) (no (unknown) (unknown) Urine Protein (units ( unknown) date) Negative unknown) (Negative) (unknown) (no (unknown) (unknown) Urine Protein (units ( unknown) date) (Negative) unknown) (unknown) (no (unknown) (unknown) Urine RBC (units (unkn own) date) (0-5/HPF) unknown) (unknown) (no (unknown) (unknown) Urine RBC None (units (unknown) date) seen (0-5/HPF) unknown) (unknown) (no (unknown) (unknown) Urine RBC (units (unkn own) date) (0-5/HPF) unknown) (unknown) (no (unknown) (unknown) Urine Urobilinogen (units (unknown) date) (0.2) E.U./dL unknown) (unknown) (no (unknown) (unknown) Urine Urobilinogen (units (unknown) date) 0.2 (0.2) unknown) E.U./dL (unknown) (no (unknown) (unknown) Urine Urobilinogen (units (unknown) date) (0.2) E.U./dL unknown) (unknown) (no (unknown) (unknown) Urine WBC (units (unkn own) date) (0-5/HPF) unknown) (unknown) (no (unknown) (unknown) Urine WBC None (units (unknown) date) seen (0-5/HPF) unknown) (unknown) (no (unknown) (unknown) Urine WBC (units (unkn own) date) (0-5/HPF) unknown) (unknown) (no (unknown) (unknown) Urine pH (units (unkno wn) date) (4.5-8.0) unknown) (unknown) (no (unknown) (unknown) Urine pH 5.0 (units (unknown) date) (4.5-8.0) unknown) (unknown) (no (unknown) (unknown) Urine pH (units (unkno wn) date) (4.5-8.0) unknown) (unknown) (no (unknown) (unknown) Ventricular (units (un known) date) bigeminy unknown) (unknown) (no (unknown) (unknown) Vital Signs (units (un known) date) unknown) (unknown) (no (unknown) (unknown) Vital signs: (units (u nknown) date) unknown) (unknown) (no (unknown) (unknown) [Embedded Image (units (unknown) date) Not Available] unknown) (unknown) (no (unknown) (unknown) [[id number]-NYT (units (unknown) date) REDUCTASE unknown) (unknown) (no (unknown) (unknown) [SULFA (units (unkno wn) date) (SULFONAMIDE unknown) (unknown) (no (unknown) (unknown) acetaminophen 300 (units (unknown) date) mg-codeine 30 mg 1 unknown) tab PO Q6HR PRN 10/08/21 10/08/21 (unknown) (no (unknown) (unknown) acetaminophen 325 (units (unknown) date) mg tablet 650 mg PO unknown) Q6H PRN #60 tab 11/06/20 (unknown) (no (unknown) (unknown) albuterol sulfate (units (unknown) date) 1.25 mg/3 mL 2.5 mg unknown) (6 mL) INHALATION QID #90 ml 11/28/21 (unknown) (no (unknown) (unknown) alcohol intake (units (unknown) date) frequency: unknown) holidays/special occasions only (unknown) (no (unknown) (unknown) alcohol intake: (units (unknown) date) current unknown) (unknown) (no (unknown) (unknown) benzonatate 100 mg (units (unknown) date) capsule 100 mg PO unknown) TID PRN #14 cap 03/05/21 (unknown) (no (unknown) (unknown) buprenorphine (units ( unknown) date) [BUPRENORPHINE] unknown) AdvReac Mild NAUSEA, Verified 11/28/21 15:33 (unknown) (no (unknown) (unknown) cefdinir 300 mg (units (unknown) date) capsule 300 mg PO unknown) BID #20 cap 10/09/21 (unknown) (no (unknown) (unknown) celecoxib (units (unkn own) date) [CELECOXIB] Allergy unknown) Mild SWELLING Verified 11/28/21 15:33 (unknown) (no (unknown) (unknown) cetirizine 10 mg (units (unknown) date) capsule (Zyrtec) 10 unknown) mg PO DAILY 05/22/19 10/08/21 (unknown) (no (unknown) (unknown) diazepam [From (units (unknown) date) Valium] AdvReac unknown) Confusion Verified 11/28/21 15:33 (unknown) (no (unknown) (unknown) diclofenac sodium (units (unknown) date) 1 % topical gel 2 g unknown) TOPICAL QID #100 g 11/19/21 (unknown) (no (unknown) (unknown) ferrous sulfate (units (unknown) date) 325 mg (65 mg 325 unknown) mg PO DAILY 10/19/19 10/08/21 (unknown) (no (unknown) (unknown) fluticasone (units (un known) date) propionate 50 1 unknown) spray INTRANASAL DAILY PRN #0 11/02/17 10/08/21 (unknown) (no (unknown) (unknown) furosemide 40 mg (units (unknown) date) tablet (Lasix) 40 unknown) mg PO DAILY 10/08/21 10/08/21 (unknown) (no (unknown) (unknown) glipizide 2.5 mg (units (unknown) date) tablet, extended unknown) 2.5 mg PO DAILY 10/08/21 10/08/21 (unknown) (no (unknown) (unknown) hand (units (unkno wn) date) unknown) (unknown) (no (unknown) (unknown) household members: (units (unknown) date) spouse unknown) (unknown) (no (unknown) (unknown) hyoscyamine (units (un known) date) [HYOSCYAMINE] unknown) AdvReac Mild LEG Verified 11/28/21 15:33 (unknown) (no (unknown) (unknown) iron) (units (unkno wn) date) tablet,delayed unknown) release (unknown) (no (unknown) (unknown) latex [LATEX] (units ( unknown) date) Allergy Mild RASH unknown) Verified 11/28/21 15:33 (unknown) (no (unknown) (unknown) levalbuterol HCl (units (unknown) date) 1.25 mg/3 mL 3 ml unknown) INHALATION Q6H PRN 10/16/18 10/08/21 (unknown) (no (unknown) (unknown) levalbuterol (units (u nknown) date) tartrate 45 1 puff unknown) INHALATION Q4-6H PRN #15 06/22/18 (unknown) (no (unknown) (unknown) mcg/actuation (units ( unknown) date) aerosol inhaler unknown) gram (unknown) (no (unknown) (unknown) mcg/actuation (units ( unknown) date) nasal unknown) (unknown) (no (unknown) (unknown) meclizine 25 mg (units (unknown) date) tablet 25 mg PO QID unknown) PRN #30 tab 10/09/21 (unknown) (no (unknown) (unknown) methocarbamol 500 (units (unknown) date) mg tablet 500 mg PO unknown) Q8H PRN #14 tab 11/19/21 (unknown) (no (unknown) (unknown) metoprolol (units (unk nown) date) tartrate 100 mg unknown) tablet 100 mg PO BID 10/16/18 10/08/21 (unknown) (no (unknown) (unknown) mg tablet (units (unkn own) date) (Percocet) unknown) (unknown) (no (unknown) (unknown) multivitamin (units (u nknown) date) (Multiple Vitamins) unknown) 1 tab PO DAILY #0 12/20/17 10/08/21 (unknown) (no (unknown) (unknown) oxycodone 5 mg (units (unknown) date) tablet 10 mg PO unknown) Q4-5H PRN #60 tab 11/06/20 (unknown) (no (unknown) (unknown) oxycodone-acetamin (units (unknown) date) ophen 5 mg-325 1 unknown) tab PO Q8H PRN #10 tab 11/19/21 (unknown) (no (unknown) (unknown) oxycodone-acetamin (units (unknown) date) ophen 5 mg-325 1 unknown) tab PO TID PRN #10 tab 11/19/21 (unknown) (no (unknown) (unknown) prednisone 20 mg (units (unknown) date) tablet 20 mg PO unknown) DAILY #32 tab 11/28/21 (unknown) (no (unknown) (unknown) prednisone 50 mg (units (unknown) date) tablet 50 mg PO unknown) DAILY #5 tab 11/19/21 (unknown) (no (unknown) (unknown) release 24 hr (units ( unknown) date) (Glucotrol XL) unknown) (unknown) (no (unknown) (unknown) solution for (units (u nknown) date) nebulization unknown) (unknown) (no (unknown) (unknown) solution for (units (u nknown) date) nebulization unknown) (unknown) (no (unknown) (unknown) spray,suspension (units (unknown) date) unknown) (unknown) (no (unknown) (unknown) substance use (units ( unknown) date) type: does not use unknown) (unknown) (no (unknown) (unknown) tablet (units (unkno wn) date) unknown) (unknown) (no (unknown) (unknown) trazodone 100 mg (units (unknown) date) tablet 400 tab PO unknown) BEDTIME 12/09/17 10/08/21 (unknown) (no (unknown) (unknown) varenicline (units (un known) date) [VARENICLINE] unknown) AdvReac Severe Paranoia Verified 11/28/21 15:33 Result panel 31 (unknown) (no date) (unknown) (unknown) 1.5 mmol/L (unkn own) Result panel 32 (unknown) (no (unknown) (unknown) (no value) (units (unk nown) date) unknown) (unknown) (no (unknown) (unknown) Radiologist's (units ( unknown) date) Impression: unknown) (unknown) (no (unknown) (unknown) (no value) (units (unk nown) date) unknown) (unknown) (no (unknown) (unknown) Date of Service: (units (unknown) date) 12/07/21 unknown) (unknown) (no (unknown) (unknown) (no value) (units (unk nown) date) unknown) (unknown) (no (unknown) (unknown) 12/07/21 23:05 (units (unknown) date) unknown) (unknown) (no (unknown) (unknown) 1 puff INHALATION (units (unknown) date) Q4-6H PRN (Reason: unknown) shortness of breath or wheezing) Qty: 15 (unknown) (no (unknown) (unknown) 1 spray Intranasal (units (unknown) date) DAILY PRN (Reason: unknown) Allergy Symptoms) Qty: 0 0RF (unknown) (no (unknown) (unknown) 1 tab PO DAILY (units (unknown) date) Qty: 0 0RF unknown) (unknown) (no (unknown) (unknown) 1 tab PO Q6HR PRN (units (unknown) date) (Reason: Back Pain) unknown) 0RF (unknown) (no (unknown) (unknown) 1 tab PO Q8H PRN (units (unknown) date) (Reason: pain) Qty: unknown) 10 0RF (unknown) (no (unknown) (unknown) 1 tab PO TID PRN (units (unknown) date) (Reason: pain) Qty: unknown) 10 0RF (unknown) (no (unknown) (unknown) 10 mg PO DAILY 0RF (units (unknown) date) unknown) (unknown) (no (unknown) (unknown) 10 mg PO Q4-5H PRN (units (unknown) date) (Reason: Pain, unknown) Severe (7-10)) Qty: 60 0RF (unknown) (no (unknown) (unknown) 100 mg PO BID 0RF (units (unknown) date) unknown) (unknown) (no (unknown) (unknown) 100 mg PO TID PRN (units (unknown) date) (Reason: cough) unknown) Qty: 14 0RF (unknown) (no (unknown) (unknown) [address] (units (unknown) date) unknown) (unknown) (no (unknown) (unknown) 2 g topical QID (units (unknown) date) Qty: 100 0RF unknown) (unknown) (no (unknown) (unknown) 2.5 mg PO DAILY (units (unknown) date) 0RF unknown) (unknown) (no (unknown) (unknown) 2.5 mg inhalation (units (unknown) date) QID Qty: 90 1RF unknown) (unknown) (no (unknown) (unknown) 20 mg PO DAILY (units (unknown) date) Qty: 32 0RF unknown) (unknown) (no (unknown) (unknown) 25 mg PO QID PRN (units (unknown) date) (Reason: vertigo) unknown) Qty: 30 0RF (unknown) (no (unknown) (unknown) 3 ml Inhalation (units (unknown) date) Q6H PRN (Reason: unknown) Shortness Of Breath) 0RF (unknown) (no (unknown) (unknown) 300 mg PO BID Qty: (units (unknown) date) 20 0RF unknown) (unknown) (no (unknown) (unknown) 325 mg PO DAILY (units (unknown) date) 0RF unknown) (unknown) (no (unknown) (unknown) 40 mg PO DAILY 0RF (units (unknown) date) unknown) (unknown) (no (unknown) (unknown) 400 tab PO BEDTIME (units (unknown) date) 0RF unknown) (unknown) (no (unknown) (unknown) 50 mg PO DAILY (units (unknown) date) Qty: 5 0RF unknown) (unknown) (no (unknown) (unknown) 500 mg PO Q8H PRN (units (unknown) date) (Reason: muscle unknown) spasm) Qty: 14 0RF (unknown) (no (unknown) (unknown) 60mg x 5 day, 40mg (units (unknown) date) x 5 day, 20mg x5 unknown) day, 10mg x 4 days (unknown) (no (unknown) (unknown) 650 mg PO Q6H PRN (units (unknown) date) (Reason: pain) Qty: unknown) 60 0RF (unknown) (no (unknown) (unknown) ANXIETY, (units (unkno wn) date) unknown) (unknown) (no (unknown) (unknown) Allergies (units (unkn own) date) unknown) (unknown) (no (unknown) (unknown) [place] (units ( unknown) date) [id number] unknown) (unknown) (no (unknown) (unknown) CT Scan Report (units (unknown) date) unknown) (unknown) (no (unknown) (unknown) Close (units (unkno wn) date) unknown) (unknown) (no (unknown) (unknown) DIZZINESS (units (unkn own) date) unknown) (unknown) (no (unknown) (unknown) Documented by: (units (unknown) date) [email or web address] unknown) (unknown) (no (unknown) (unknown) Documented by: (units (unknown) date) RLAZANI unknown) (unknown) (no (unknown) (unknown) ED Orders (units (unkn own) date) unknown) (unknown) (no (unknown) (unknown) EXPOSURE (units (unkno wn) date) unknown) (unknown) (no (unknown) (unknown) Emergency Report (units (unknown) date) unknown) (unknown) (no (unknown) (unknown) Home Medications (units (unknown) date) unknown) (unknown) (no (unknown) (unknown) INHALE 1 VIAL PER (units (unknown) date) NEBULIZER EVERY 6 unknown) HOURS NEEDED (unknown) (no (unknown) (unknown) [facility] (units (unknown) date) unknown) (unknown) (no (unknown) (unknown) [facility] (units (unknown) date) [address] unknown) [place] [id number] (unknown) (no (unknown) (unknown) JERKING, (units (unkno wn) date) unknown) (unknown) (no (unknown) (unknown) Lab Results (units (un known) date) unknown) (unknown) (no (unknown) (unknown) Label Comments: (units (unknown) date) unknown) (unknown) (no (unknown) (unknown) Last Admin: (units (un known) date) 12/07/21 23:25 unknown) Dose: 150 mls/hr (unknown) (no (unknown) (unknown) Last Admin: (units (un known) date) 12/08/21 01:35 unknown) Dose: 1 tab (unknown) (no (unknown) (unknown) Launch?Image (units (u nknown) date) unknown) (unknown) (no (unknown) (unknown) MINUTES (units (unkno wn) date) unknown) (unknown) (no (unknown) (unknown) NAUSEA W/I (units (unk nown) date) unknown) (unknown) (no (unknown) (unknown) Point of Care (units ( unknown) date) Testing unknown) (unknown) (no (unknown) (unknown) Previous Rx's (units ( unknown) date) unknown) (unknown) (no (unknown) (unknown) Rx Instructions: (units (unknown) date) unknown) (unknown) (no (unknown) (unknown) Signed (units (unkno wn) date) unknown) (unknown) (no (unknown) (unknown) Spouse Milana (units (u nknown) date) called + reported unknown) patient not taking it regularly. (unknown) (no (unknown) (unknown) Stop: 12/08/21 (units (unknown) date) 01:26 unknown) (unknown) (no (unknown) (unknown) Vital Signs - 8 hr (units (unknown) date) unknown) (unknown) (no (unknown) (unknown) W/EXTENDED (units (unk nown) date) unknown) (unknown) (no (unknown) (unknown) apply to single (units (unknown) date) elbow, wrist or unknown) hand; for hand includes palm/fingers/back of (unknown) (no (unknown) (unknown) patient states (units (unknown) date) weaning off. unknown) (unknown) (no (unknown) (unknown) take 1 tablet by (units (unknown) date) mouth once daily unknown) (unknown) (no (unknown) (unknown) take 1 tablet by (units (unknown) date) mouth twice a day unknown) (unknown) (no (unknown) (unknown) (no value) (units (unk nown) date) unknown) (unknown) (no (unknown) (unknown) 12/07/21 12/07/21 (units (unknown) date) 12/07/21 unknown) Range/Units (unknown) (no (unknown) (unknown) 12/07/21 (units (unkno wn) date) Range/Units unknown) (unknown) (no (unknown) (unknown) 23:05 23:05 23:05 (units (unknown) date) unknown) (unknown) (no (unknown) (unknown) 23:05 23:44 23:57 (units (unknown) date) unknown) (unknown) (no (unknown) (unknown) 23:57 (units (unkno wn) date) unknown) (unknown) (no (unknown) (unknown) Zyrtec 10 mg (units (u nknown) date) Capsule unknown) (unknown) (no (unknown) (unknown) acetaminophen (units ( unknown) date) [Athenol] 325 mg unknown) tablet (unknown) (no (unknown) (unknown) acetaminophen-code (units (unknown) date) ine 300-30 mg unknown) tablet (unknown) (no (unknown) (unknown) albuterol sulfate (units (unknown) date) 1.25 mg/3 mL unknown) solution for nebulization (unknown) (no (unknown) (unknown) benzonatate (units (un known) date) [Tessalon Perles] unknown) 100 mg capsule (unknown) (no (unknown) (unknown) cefdinir 300 mg (units (unknown) date) capsule unknown) (unknown) (no (unknown) (unknown) diclofenac sodium (units (unknown) date) 1 % gel unknown) (unknown) (no (unknown) (unknown) ferrous sulfate (units (unknown) date) 325 mg (65 mg iron) unknown) tablet,delayed release (DR/EC) (unknown) (no (unknown) (unknown) fluticasone (units (un known) date) propionate 16 GM unknown) spray,suspension (unknown) (no (unknown) (unknown) furosemide [Lasix] (units (unknown) date) 40 mg tablet unknown) (unknown) (no (unknown) (unknown) glipizide (units (unkn own) date) [Glucotrol XL] 2.5 unknown) mg tablet extended release 24 hr (unknown) (no (unknown) (unknown) levalbuterol HCl (units (unknown) date) 1.25 mg/3 mL unknown) solution for nebulization (unknown) (no (unknown) (unknown) levalbuterol (units (u nknown) date) tartrate [Xopenex unknown) HFA] 45 mcg/actuation HFA aerosol inhaler (unknown) (no (unknown) (unknown) meclizine 25 mg (units (unknown) date) tablet unknown) (unknown) (no (unknown) (unknown) methocarbamol 500 (units (unknown) date) mg tablet unknown) (unknown) (no (unknown) (unknown) metoprolol (units (unk nown) date) tartrate 100 mg unknown) tablet (unknown) (no (unknown) (unknown) multivitamin (units (u nknown) date) [Multiple Vitamins] unknown) 1 EACH tablet (unknown) (no (unknown) (unknown) oxycodone 5 mg (units (unknown) date) Tablet unknown) (unknown) (no (unknown) (unknown) oxycodone-acetamin (units (unknown) date) ophen [Percocet] unknown) 5-325 mg tablet (unknown) (no (unknown) (unknown) prednisone 20 mg (units (unknown) date) tablet unknown) (unknown) (no (unknown) (unknown) prednisone 50 mg (units (unknown) date) tablet unknown) (unknown) (no (unknown) (unknown) trazodone 100 mg (units (unknown) date) tablet unknown) (unknown) (no (unknown) (unknown) 12/07/21 (units (unkno wn) date) unknown) (unknown) (no (unknown) (unknown) Medication (units (unk nown) date) Instructions unknown) Recorded (unknown) (no (unknown) (unknown) Medication (units (unk nown) date) Instructions unknown) Recorded Confirmed (unknown) (no (unknown) (unknown) been contacted and (units (unknown) date) she will be able to unknown) come pick him up in the morning. (unknown) (no (unknown) (unknown) facet (units (unkno wn) date) unknown) (unknown) (no (unknown) (unknown) junction (units (unkno wn) date) unknown) (unknown) (no (unknown) (unknown) of (units (unkno wn) date) unknown) (unknown) (no (unknown) (unknown) rales, or rhonchi. (units (unknown) date) unknown) (unknown) (no (unknown) (unknown) (Athenol) (units (unkn own) date) unknown) (unknown) (no (unknown) (unknown) (More??) (units (unkno wn) date) unknown) (unknown) (no (unknown) (unknown) (Tessalon Perles) (units (unknown) date) unknown) (unknown) (no (unknown) (unknown) (Xopenex HFA) (units ( unknown) date) unknown) (unknown) (no (unknown) (unknown) - (units (unkno wn) date) unknown) (unknown) (no (unknown) (unknown) [id number] (units (unkn own) date) unknown) (unknown) (no (unknown) (unknown) 08/11/20 (units (unkno wn) date) unknown) (unknown) (no (unknown) (unknown) 08/16/20 (units (unkno wn) date) unknown) (unknown) (no (unknown) (unknown) 08/28/20 (units (unkno wn) date) unknown) (unknown) (no (unknown) (unknown) 09/15/21 (units (unkno wn) date) unknown) (unknown) (no (unknown) (unknown) 10/07/21 (units (unkno wn) date) unknown) (unknown) (no (unknown) (unknown) 10/08/21 (units (unkno wn) date) unknown) (unknown) (no (unknown) (unknown) 10/31/20 (units (unkno wn) date) unknown) (unknown) (no (unknown) (unknown) 11/04/20 (units (unkno wn) date) unknown) (unknown) (no (unknown) (unknown) 11/07/20 (units (unkno wn) date) unknown) (unknown) (no (unknown) (unknown) 11/19/21 (units (unkno wn) date) unknown) (unknown) (no (unknown) (unknown) 11/22/20 (units (unkno wn) date) unknown) (unknown) (no (unknown) (unknown) 11/28/21 (units (unkno wn) date) unknown) (unknown) (no (unknown) (unknown) 12/07/21 (units (unkno wn) date) unknown) (unknown) (no (unknown) (unknown) 12/07/21 20:28 (units (unknown) date) unknown) (unknown) (no (unknown) (unknown) 12/07/21 23:05 (units (unknown) date) unknown) (unknown) (no (unknown) (unknown) 12/07/21 23:21 (units (unknown) date) unknown) (unknown) (no (unknown) (unknown) 12/07/21 23:44 (units (unknown) date) unknown) (unknown) (no (unknown) (unknown) 12/07/21 23:57 (units (unknown) date) unknown) (unknown) (no (unknown) (unknown) 12/28/20 (units (unkno wn) date) unknown) (unknown) (no (unknown) (unknown) 03/05/21 (units (unkno wn) date) unknown) (unknown) (no (unknown) (unknown) 04/16/21 (units (unkno wn) date) unknown) (unknown) (no (unknown) (unknown) 0RF (units (unkno wn) date) unknown) (unknown) (no (unknown) (unknown) 1. No acute (units (un known) date) intracranial unknown) abnormality. (unknown) (no (unknown) (unknown) 1.? No acute (units (u nknown) date) fracture or unknown) subluxation. (unknown) (no (unknown) (unknown) 12 point review of (units (unknown) date) systems is negative unknown) except for those stated above (unknown) (no (unknown) (unknown) 07/18/20 (units (unkno wn) date) unknown) (unknown) (no (unknown) (unknown) 2. Bony remodeling (units (unknown) date) in the left unknown) maxillary sinus redemonstrated consistent with (unknown) (no (unknown) (unknown) 2. Postsurgical (units (unknown) date) changes unknown) redemonstrated throughout the cervical spine with fusion (unknown) (no (unknown) (unknown) 20:23 (units (unkno wn) date) unknown) (unknown) (no (unknown) (unknown) 3. Mild cerebral (units (unknown) date) volume loss.? 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 (units (unkno wn) date) unknown) (unknown) (no (unknown) (unknown) ? (units (unkno wn) date) unknown) (unknown) (no (unknown) (unknown) ?Minimal (units (unkno wn) date) anterolisthesis unknown) also demonstrated at T1-T2.? Findings are similar to (unknown) (no (unknown) (unknown) ACDF at (units (unkno wn) date) unknown) (unknown) (no (unknown) (unknown) ALT (<50) (units ( unknown) date) IU/L unknown) (unknown) (no (unknown) (unknown) ALT (<50) IU/L (units (unknown) date) unknown) (unknown) (no (unknown) (unknown) ALT 31 (<50) (units (unknown) date) IU/L unknown) (unknown) (no (unknown) (unknown) ANTIBIOTICS)] (units ( unknown) date) unknown) (unknown) (no (unknown) (unknown) AST (17-59) (units (unknown) date) IU/L unknown) (unknown) (no (unknown) (unknown) AST (17-59) (units ( unknown) date) IU/L unknown) (unknown) (no (unknown) (unknown) AST 32 (17-59) (units (unknown) date) IU/L unknown) (unknown) (no (unknown) (unknown) Accession Number: (units (unknown) date) [id number] ?? unknown) (unknown) (no (unknown) (unknown) Accession Number: (units (unknown) date) [id number] ?? unknown) (unknown) (no (unknown) (unknown) Acct:[id number] (units (unknown) date) unknown) (unknown) (no (unknown) (unknown) Acetaminophen (units ( unknown) date) (10-30) ug/mL unknown) (unknown) (no (unknown) (unknown) Acetaminophen < (units (unknown) date) 10 (10-30) ug/mL unknown) (unknown) (no (unknown) (unknown) Acetaminophen (units ( unknown) date) (10-30) ug/mL unknown) (unknown) (no (unknown) (unknown) Acetaminophen Stat (units (unknown) date) unknown) (unknown) (no (unknown) (unknown) Acetaminophen/Code (units (unknown) date) ine Phosphate unknown) (Codeine/Acetaminop hen 30/300 Tablet) 1 tab PO (unknown) (no (unknown) (unknown) Achalasia (units (unkn own) date) unknown) (unknown) (no (unknown) (unknown) Age/Sex: 76 / M (units (unknown) date) unknown) (unknown) (no (unknown) (unknown) Age/Sex: 76 / M (units (unknown) date) unknown) (unknown) (no (unknown) (unknown) Albumin (units (unkno wn) date) (3.5-5.0) g/dL unknown) (unknown) (no (unknown) (unknown) Albumin (units (unkno wn) date) (3.5-5.0) g/dL unknown) (unknown) (no (unknown) (unknown) Albumin 4.1 (units ( unknown) date) (3.5-5.0) g/dL unknown) (unknown) (no (unknown) (unknown) Albumin/Globulin (units (unknown) date) Ratio (1.0-2.8) unknown) (unknown) (no (unknown) (unknown) Albumin/Globulin (units (unknown) date) Ratio (1.0-2.8) unknown) (unknown) (no (unknown) (unknown) Albumin/Globulin (units (unknown) date) Ratio 1.4 unknown) (1.0-2.8) (unknown) (no (unknown) (unknown) Alkaline (units (unkno wn) date) Phosphatase unknown) (38-126) U/L (unknown) (no (unknown) (unknown) Alkaline (units (unkno wn) date) Phosphatase unknown) (38-126) U/L (unknown) (no (unknown) (unknown) Alkaline (units (unkno wn) date) Phosphatase 64 unknown) (38-126) U/L (unknown) (no (unknown) (unknown) Allergy/Adv: (units (u nknown) date) celecoxib, latex, unknown) Sulfa (Sulfonamide Antibiotics), varenicline, (unknown) (no (unknown) (unknown) Allergy/AdvReac (units (unknown) date) Type Severity unknown) Reaction Status Date / Time (unknown) (no (unknown) (unknown) Anginal pain (units (u nknown) date) unknown) (unknown) (no (unknown) (unknown) Ankle X-Ray (units (un known) date) (Signed) unknown) (unknown) (no (unknown) (unknown) Antibiotics) (units (u nknown) date) unknown) (unknown) (no (unknown) (unknown) Approved by: (units (u nknown) date) Maxim Valadez unknown) Clifford on 12/07/2021 at 21:44 ? (unknown) (no (unknown) (unknown) Approved by: (units (u nknown) date) mohamud Monsivais M.D. on 12/07/2021 at 21:48 ? (unknown) (no (unknown) (unknown) Asthma (units (unkno wn) date) unknown) (unknown) (no (unknown) (unknown) Atrial (units (unkno wn) date) fibrillation unknown) (unknown) (no (unknown) (unknown) BACK: Nontender (units (unknown) date) without deformity unknown) or crepitance. No flank tenderness. (unknown) (no (unknown) (unknown) BUN (9-20) (units (unknown) date) mg/dL unknown) (unknown) (no (unknown) (unknown) BUN (9-20) (units (u nknown) date) mg/dL unknown) (unknown) (no (unknown) (unknown) BUN 21 H (units (unk nown) date) (9-20) mg/dL unknown) (unknown) (no (unknown) (unknown) BUN/Creatinine (units (unknown) date) Ratio (6-22) unknown) (unknown) (no (unknown) (unknown) BUN/Creatinine (units (unknown) date) Ratio (6-22) unknown) (unknown) (no (unknown) (unknown) BUN/Creatinine (units (unknown) date) Ratio 23.9 H unknown) (6-22) (unknown) (no (unknown) (unknown) Baso # (Auto) (units ( unknown) date) (0-100) /uL unknown) (unknown) (no (unknown) (unknown) Baso # (Auto) (units ( unknown) date) (0-100) /uL unknown) (unknown) (no (unknown) (unknown) Baso # (Auto) 100 (units (unknown) date) (0-100) /uL unknown) (unknown) (no (unknown) (unknown) Baso % (Auto) (units ( unknown) date) (0-2) % unknown) (unknown) (no (unknown) (unknown) Baso % (Auto) (units ( unknown) date) (0-2) % unknown) (unknown) (no (unknown) (unknown) Baso % (Auto) 0.8 (units (unknown) date) (0-2) % unknown) (unknown) (no (unknown) (unknown) Blood Culture Stat (units (unknown) date) unknown) (unknown) (no (unknown) (unknown) Blood Pressure (units (unknown) date) 159/98 H 12/07/21 unknown) 20:23 (unknown) (no (unknown) (unknown) Blood Pressure (units (unknown) date) 159/98 H unknown) (unknown) (no (unknown) (unknown) Bones:? No (units (unk nown) date) fractures or unknown) subluxation.? There is anterolisthesis at C2-C3 (unknown) (no (unknown) (unknown) Brain MRI (Signed) (units (unknown) date) unknown) (unknown) (no (unknown) (unknown) Brain:? No (units (unkn own) date) intracranial unknown) hemorrhage, mass, or mass effect.? The adams-white matter (unknown) (no (unknown) (unknown) C4-C5 and C7-T1.? (units (unknown) date) There is also unknown) fusion at C5-C6 and C6-C7.? There is mild to (unknown) (no (unknown) (unknown) CARDIOVASCULAR: (units (unknown) date) Denies chest pain, unknown) palpitations, orthopnea, edema, (unknown) (no (unknown) (unknown) CARDIOVASCULAR: (units (unknown) date) Regular rate and unknown) rhythm without murmurs, gallops, or rubs. (unknown) (no (unknown) (unknown) COMPARISON:? (units (u nknown) date) [facility], unknown) CT, CT CERVICAL SPINE WO [facility], 04/16/2021, 12:21. (unknown) (no (unknown) (unknown) COMPARISON:? (units (u nknown) date) [facility], unknown) CT, CT HEAD/BRAIN WO [facility], 04/16/2021, 12:21. (unknown) (no (unknown) (unknown) COPD (chronic (units ( unknown) date) obstructive unknown) pulmonary disease) (unknown) (no (unknown) (unknown) COVID19 -Nasal (units (unknown) date) RAPID/Pre-Proc Stat unknown) (unknown) (no (unknown) (unknown) CSF spaces:? Basal (units (unknown) date) cisterns are unknown) patent.? The ventricles are symmetric in size (unknown) (no (unknown) (unknown) CT - cervical (units ( unknown) date) spine: unknown) (unknown) (no (unknown) (unknown) CT cervical spine (units (unknown) date) wo con Stat unknown) (unknown) (no (unknown) (unknown) CT head/brain wo (units (unknown) date) con Stat unknown) (unknown) (no (unknown) (unknown) CT scan - head: (units (unknown) date) unknown) (unknown) (no (unknown) (unknown) Calcium (units (unkno wn) date) (8.4-10.2) mg/dL unknown) (unknown) (no (unknown) (unknown) Calcium (units (unkno wn) date) (8.4-10.2) mg/dL unknown) (unknown) (no (unknown) (unknown) Calcium 8.4 (units ( unknown) date) (8.4-10.2) mg/dL unknown) (unknown) (no (unknown) (unknown) Call,Francisco J (units (unk nown) date) unknown) (unknown) (no (unknown) (unknown) Carbon Dioxide (units (unknown) date) (22-32) mmol/L unknown) (unknown) (no (unknown) (unknown) Carbon Dioxide (units (unknown) date) (22-32) mmol/L unknown) (unknown) (no (unknown) (unknown) Carbon Dioxide (units (unknown) date) 27 (22-32) unknown) mmol/L (unknown) (no (unknown) (unknown) Cervical Spine CT (units (unknown) date) (Signed) unknown) (unknown) (no (unknown) (unknown) Cervical spinal (units (unknown) date) stenosis unknown) (unknown) (no (unknown) (unknown) Chest CTA (Signed) (units (unknown) date) unknown) (unknown) (no (unknown) (unknown) Chest X-Ray (units (un known) date) (Signed) unknown) (unknown) (no (unknown) (unknown) Chest/Abdomen/Pelv (units (unknown) date) is CTA (Signed) unknown) (unknown) (no (unknown) (unknown) Chief Complaint: (units (unknown) date) Trauma unknown) (unknown) (no (unknown) (unknown) Chloride (units (unkno wn) date) (98-107) mmol/L unknown) (unknown) (no (unknown) (unknown) Chloride (units (unkno wn) date) (98-107) mmol/L unknown) (unknown) (no (unknown) (unknown) Chloride 104 (units (unknown) date) (98-107) mmol/L unknown) (unknown) (no (unknown) (unknown) 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 (10/22/16) (unknown) (no (unknown) (unknown) Zeina Saavedra (units (u nknown) date) unknown) (unknown) (no (unknown) (unknown) Complete Blood (units (unknown) date) Count AUTO DIFF unknown) Stat (unknown) (no (unknown) (unknown) Comprehensive (units ( unknown) date) Metabolic Panel unknown) Stat (unknown) (no (unknown) (unknown) Coronary artery (units (unknown) date) disease unknown) (unknown) (no (unknown) (unknown) Course (units (unkno wn) date) unknown) (unknown) (no (unknown) (unknown) Creatinine (units (unk nown) date) (0.66-1.25) mg/dL unknown) (unknown) (no (unknown) (unknown) Creatinine (units (unk nown) date) (0.66-1.25) mg/dL unknown) (unknown) (no (unknown) (unknown) Creatinine 0.88 (units (unknown) date) (0.66-1.25) mg/dL unknown) (unknown) (no (unknown) (unknown) : 1945 (units (unknown) date) Acct:[id number] unknown) (unknown) (no (unknown) (unknown) : 1945 (units (unknown) date) unknown) (unknown) (no (unknown) (unknown) Kimmy Gomez MD (units (unknown) date) [Primary Care unknown) Provider] - (unknown) (no (unknown) (unknown) Date of Service: (units (unknown) date) 12/07/21 unknown) (unknown) (no (unknown) (unknown) Departure (units (unkn own) date) unknown) (unknown) (no (unknown) (unknown) Inder Farley (units (u nknown) date) unknown) (unknown) (no (unknown) (unknown) Dictated by: (units (u nknown) date) Maxim Valadez, unknownRui Horton on 12/07/2021 at 21:42 ? ? (unknown) (no (unknown) (unknown) Dictated by: (units (u nknown) date) Maxim Valadez unknownRui Horton on 12/07/2021 at 21:44 ? ? (unknown) (no (unknown) (unknown) Discharge Plan (units (unknown) date) unknown) (unknown) (no (unknown) (unknown) Discontinued (units (u nknown) date) Medications unknown) (unknown) (no (unknown) (unknown) ENT: Nose without (units (unknown) date) bleeding, purulent unknown) drainage. No nasal septal hematoma Throat (unknown) (no (unknown) (unknown) ER Physician: (units ( unknown) date) Jung Dejesus D.O. unknown) (unknown) (no (unknown) (unknown) EXTREMITIES: No (units (unknown) date) edema or joint unknown) tenderness. (unknown) (no (unknown) (unknown) EYES: Pupils equal (units (unknown) date) round and reactive. unknown) No hyphema Extraocular motions intact. (unknown) (no (unknown) (unknown) Echocardiogram (units (unknown) date) Ultrasound (Signed) unknown) (unknown) (no (unknown) (unknown) Eos # (Auto) (units (u nknown) date) (0-450) /uL unknown) (unknown) (no (unknown) (unknown) Eos # (Auto) (units (u nknown) date) (0-450) /uL unknown) (unknown) (no (unknown) (unknown) Eos # (Auto) 100 (units (unknown) date) (0-450) /uL unknown) (unknown) (no (unknown) (unknown) Eos % (Auto) (units (u nknown) date) (2-4) % unknown) (unknown) (no (unknown) (unknown) Eos % (Auto) (units (u nknown) date) (2-4) % unknown) (unknown) (no (unknown) (unknown) Eos % (Auto) 2.0 (units (unknown) date) (2-4) % unknown) (unknown) (no (unknown) (unknown) Estimated GFR (units ( unknown) date) (>60) mL/min unknown) (unknown) (no (unknown) (unknown) Estimated GFR > (units (unknown) date) 60 (>60) mL/min unknown) (unknown) (no (unknown) (unknown) Estimated GFR (units ( unknown) date) (>60) mL/min unknown) (unknown) (no (unknown) (unknown) Ethanol (ETOH) (units (unknown) date) Stat unknown) (unknown) (no (unknown) (unknown) Ethyl Alcohol ( (units (unknown) date) - 10) mg/dL unknown) (unknown) (no (unknown) (unknown) Ethyl Alcohol (units ( unknown) date) 111 H ( - 10) unknown) mg/dL (unknown) (no (unknown) (unknown) Ethyl Alcohol ( - (units (unknown) date) 10) mg/dL unknown) (unknown) (no (unknown) (unknown) Exam (units (unkno wn) date) unknown) (unknown) (no (unknown) (unknown) Exam Narrative: (units (unknown) date) unknown) (unknown) (no (unknown) (unknown) FINDINGS:? (units (unk nown) date) unknown) (unknown) (no (unknown) (unknown) Family History (units (unknown) date) (Reviewed 12/08/21 unknown) @ 01:57 by Jung Dejesus DO) (unknown) (no (unknown) (unknown) Foot X-Ray (units (unk n) date) (Signed) unknown) (unknown) (no (unknown) (unknown) GASTROINTESTINAL: (units (unknown) date) Abdomen soft, unknown) non-tender, nondistended. (unknown) (no (unknown) (unknown) GASTROINTESTINAL: (units (unknown) date) Denies nausea, unknown) vomiting, abdominal pain, diarrhea, (unknown) (no (unknown) (unknown) GENERAL: Denies (units (unknown) date) chills, fatigue, unknown) malaise, fever, sweats. (unknown) (no (unknown) (unknown) GENERAL: [76 year (units (unknown) date) old patient appears unknown) stated age. Well-developed patient, in (unknown) (no (unknown) (unknown) : Denies (units (unk nown) date) dysuria, frequency, unknown) incontinence, hematuria, urinary retention. (unknown) (no (unknown) (unknown) General (units (unkno wn) date) unknown) (unknown) (no (unknown) (unknown) GenericComposite[P (units (unknown) date) lt Count unknown) (150-400) X10^3/uL ] (unknown) (no (unknown) (unknown) GenericComposite[P (units (unknown) date) lt Count unknown) (150-400) X10^3/uL ] (unknown) (no (unknown) (unknown) GenericComposite[P (units (unknown) date) lt Count 241 unknown) (150-400) X10^3/uL ] (unknown) (no (unknown) (unknown) GenericComposite[R (units (unknown) date) BC (4.5-5.9) unknown) X10^6/uL ] (unknown) (no (unknown) (unknown) GenericComposite[R (units (unknown) date) BC (4.5-5.9) unknown) X10^6/uL ] (unknown) (no (unknown) (unknown) GenericComposite[R (units (unknown) date) BC 4.93 unknown) (4.5-5.9) X10^6/uL ] (unknown) (no (unknown) (unknown) GenericComposite[W (units (unknown) date) BC (4.5-11.0) unknown) X10^3/uL ] (unknown) (no (unknown) (unknown) GenericComposite[W (units (unknown) date) BC (4.5-11.0) unknown) X10^3/uL ] (unknown) (no (unknown) (unknown) GenericComposite[W (units (unknown) date) BC 7.4 unknown) (4.5-11.0) X10^3/uL ] (unknown) (no (unknown) (unknown) Globulin (units (unkno wn) date) (1.7-4.1) g/dL unknown) (unknown) (no (unknown) (unknown) Globulin (units (unkno wn) date) (1.7-4.1) g/dL unknown) (unknown) (no (unknown) (unknown) Globulin 2.9 (units (unknown) date) (1.7-4.1) g/dL unknown) (unknown) (no (unknown) (unknown) Glucose (units (unkno wn) date) (80-110) mg/dL unknown) (unknown) (no (unknown) (unknown) Glucose (80-110) (units (unknown) date) mg/dL unknown) (unknown) (no (unknown) (unknown) Glucose 124 H (units (unknown) date) (80-110) mg/dL unknown) (unknown) (no (unknown) (unknown) Glucose POC 118 (units (unknown) date) unknown) (unknown) (no (unknown) (unknown) H/O arthroscopic (units (unknown) date) knee surgery unknown) (11/14/17) (unknown) (no (unknown) (unknown) HEAD: Superficial (units (unknown) date) abrasion on the unknown) bridge of his nose, no other obvious (unknown) (no (unknown) (unknown) HEENT: See HPI (units (unknown) date) unknown) (unknown) (no (unknown) (unknown) HPI - Fall (units (unk nown) date) unknown) (unknown) (no (unknown) (unknown) HPI Narrative: (units (unknown) date) unknown) (unknown) (no (unknown) (unknown) Hand X-Ray (units (unk nown) date) (Signed) unknown) (unknown) (no (unknown) (unknown) Jean Oneill (units (unknown) date) unknown) (unknown) (no (unknown) (unknown) Hct (41-53) % (units (unknown) date) unknown) (unknown) (no (unknown) (unknown) Hct (41-53) % (units (unknown) date) unknown) (unknown) (no (unknown) (unknown) Hct 46.0 (units (unkn own) date) (41-53) % unknown) (unknown) (no (unknown) (unknown) Head CT (Signed) (units (unknown) date) unknown) (unknown) (no (unknown) (unknown) Head/Neck CTA (units ( unknown) date) (Signed) unknown) (unknown) (no (unknown) (unknown) Hgb (units (unkno wn) date) (13.5-17.5) g/dL unknown) (unknown) (no (unknown) (unknown) Hgb (13.5-17.5) (units (unknown) date) g/dL unknown) (unknown) (no (unknown) (unknown) Hgb 15.6 (units (unkn own) date) (13.5-17.5) g/dL unknown) (unknown) (no (unknown) (unknown) History of Present (units (unknown) date) Illness unknown) (unknown) (no (unknown) (unknown) History of aortic (units (unknown) date) dissection unknown) () (unknown) (no (unknown) (unknown) History of (units (unk nown) date) arthroplasty of unknown) right knee (unknown) (no (unknown) (unknown) 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 (unknown) (no (unknown) (unknown) History of cardiac (units (unknown) date) cath () unknown) (unknown) (no (unknown) (unknown) History of (units (unk nown) date) esophageal surgery unknown) (unknown) (no (unknown) (unknown) History of (units (unk nown) date) incision and unknown) drainage () (unknown) (no (unknown) (unknown) History of prior (units (unknown) date) ablation treatment unknown) () (unknown) (no (unknown) (unknown) History of surgery (units (unknown) date) unknown) (unknown) (no (unknown) (unknown) Vidal,Ronni (units (unk nown) date) unknown) (unknown) (no (unknown) (unknown) Hx of (units (unkno wn) date) cholecystectomy unknown) (unknown) (no (unknown) (unknown) Hx of hernia (units (u nknown) date) repair unknown) (unknown) (no (unknown) (unknown) Hx of sinus (units (un known) date) surgery unknown) (unknown) (no (unknown) (unknown) Hypertension (units (u nknown) date) unknown) (unknown) (no (unknown) (unknown) IMPRESSION:? (units (u nknown) date) unknown) (unknown) (no (unknown) (unknown) INDICATIONS:? (units ( unknown) date) trauma unknown) (unknown) (no (unknown) (unknown) INHIBITOR] (units (unk nown) date) unknown) (unknown) (no (unknown) (unknown) Image quality:? (units (unknown) date) Excellent.? unknown) (unknown) (no (unknown) (unknown) Image quality:? (units (unknown) date) There is motion unknown) artifact limiting evaluation.? (unknown) (no (unknown) (unknown) Imaging Data (units (u nknown) date) unknown) (unknown) (no (unknown) (unknown) Inhibitor (units (unkn own) date) MUSCLES unknown) (unknown) (no (unknown) (unknown) Initial Vital (units ( unknown) date) Signs unknown) (unknown) (no (unknown) (unknown) Initial Vital (units ( unknown) date) Signs: unknown) (unknown) (no (unknown) (unknown) Ischemic (units (unkno wn) date) cardiomyopathy unknown) (unknown) (no (unknown) (unknown) Theodore,Exmore (units (unknown) date) unknown) (unknown) (no (unknown) (unknown) Ashley,Bharath (units ( unknown) date) unknown) (unknown) (no (unknown) (unknown) Knee X-Ray (units (unk nown) date) (Signed) unknown) (unknown) (no (unknown) (unknown) Lab Data (units (unkno wn) date) unknown) (unknown) (no (unknown) (unknown) Labs: (units (unkno wn) date) unknown) (unknown) (no (unknown) (unknown) Lactate (units (unkno wn) date) (0.7-2.1) mmol/L unknown) (unknown) (no (unknown) (unknown) Lactate 2.3 H (units (unknown) date) (0.7-2.1) mmol/L unknown) (unknown) (no (unknown) (unknown) Lactate (units (unkno wn) date) (0.7-2.1) mmol/L unknown) (unknown) (no (unknown) (unknown) Lactate (Lactic (units (unknown) date) Acid) Stat unknown) (unknown) (no (unknown) (unknown) Satish Jarrett (units (unkno wn) date) unknown) (unknown) (no (unknown) (unknown) Loc: ED (units (unkno wn) date) unknown) (unknown) (no (unknown) (unknown) Lumbar Spine MRI (units (unknown) date) (Signed) unknown) (unknown) (no (unknown) (unknown) Lymph # (Auto) (units (unknown) date) ([id number]) /uL unknown) (unknown) (no (unknown) (unknown) Lymph # (Auto) (units (unknown) date) (4920-4711) /uL unknown) (unknown) (no (unknown) (unknown) Lymph # (Auto) (units (unknown) date) 1700 ([id number]) unknown) /uL (unknown) (no (unknown) (unknown) Lymph % (Auto) (units (unknown) date) (25-40) % unknown) (unknown) (no (unknown) (unknown) Lymph % (Auto) (units (unknown) date) (25-40) % unknown) (unknown) (no (unknown) (unknown) Lymph % (Auto) (units (unknown) date) 23.0 L (25-40) unknown) % (unknown) (no (unknown) (unknown) MCH (26-34) (units (unknown) date) PG unknown) (unknown) (no (unknown) (unknown) MCH (26-34) PG (units (unknown) date) unknown) (unknown) (no (unknown) (unknown) MCH 31.7 (units (unkn own) date) (26-34) PG unknown) (unknown) (no (unknown) (unknown) MCHC (30-36) (units (unknown) date) % unknown) (unknown) (no (unknown) (unknown) MCHC (30-36) % (units (unknown) date) unknown) (unknown) (no (unknown) (unknown) MCHC 34.0 (units (unk nown) date) (30-36) % unknown) (unknown) (no (unknown) (unknown) MCV (80-100) (units (unknown) date) fL unknown) (unknown) (no (unknown) (unknown) MCV (80-100) fL (units (unknown) date) unknown) (unknown) (no (unknown) (unknown) MCV 93.3 (units (unkn own) date) (80-100) fL unknown) (unknown) (no (unknown) (unknown) MDM - Fall (units (unk nown) date) unknown) (unknown) (no (unknown) (unknown) MR#: [id number] (units (unknown) date) unknown) (unknown) (no (unknown) (unknown) MUSCULOSKELETAL: (units (unknown) date) See HPI unknown) (unknown) (no (unknown) (unknown) Medical History (units (unknown) date) (Reviewed 12/08/21 unknown) @ 01:57 by Jung Dejesus DO) (unknown) (no (unknown) (unknown) Cheryl Husain (units (unknown) date) unknown) (unknown) (no (unknown) (unknown) Mode of arrival: (units (unknown) date) EMS unknown) (unknown) (no (unknown) (unknown) [place] # (Auto) (units ( unknown) date) (0-900) /uL unknown) (unknown) (no (unknown) (unknown) [place] # (Auto) (units ( unknown) date) (0-900) /uL unknown) (unknown) (no (unknown) (unknown) [place] # (Auto) 700 (units (unknown) date) (0-900) /uL unknown) (unknown) (no (unknown) (unknown) [place] % (Auto) (units ( unknown) date) (3-14) % unknown) (unknown) (no (unknown) (unknown) [place] % (Auto) (units ( unknown) date) (3-14) % unknown) (unknown) (no (unknown) (unknown) [place] % (Auto) 9.5 (units (unknown) date) (3-14) % unknown) (unknown) (no (unknown) (unknown) Mother (units (unknown) date) Stroke unknown) (unknown) (no (unknown) (unknown) NECK: Trachea (units ( unknown) date) midline. Non tender unknown) (unknown) (no (unknown) (unknown) NEURO: Cranial (units (unknown) date) nerves 2-12 grossly unknown) intact (unknown) (no (unknown) (unknown) NEUROLOGIC: Denies (units (unknown) date) weakness, headache, unknown) numbness, change in speech, confusion, (unknown) (no (unknown) (unknown) NOW ONE (units (unkno wn) date) unknown) (unknown) (no (unknown) (unknown) Narcotic (units (unkno wn) date) dependence unknown) (unknown) (no (unknown) (unknown) Narrative (units (unkn own) date) unknown) (unknown) (no (unknown) (unknown) Narrative: (units (unk nown) date) unknown) (unknown) (no (unknown) (unknown) Neck pain, chronic (units (unknown) date) unknown) (unknown) (no (unknown) (unknown) Neut # (Auto) (units ( unknown) date) (6598-8690) /uL unknown) (unknown) (no (unknown) (unknown) Neut # (Auto) (units ( unknown) date) (2252-0216) /uL unknown) (unknown) (no (unknown) (unknown) Neut # (Auto) (units ( unknown) date) 4800 (1652-3890) unknown) /uL (unknown) (no (unknown) (unknown) Neut % (Auto) (units ( unknown) date) (50-75) % unknown) (unknown) (no (unknown) (unknown) Neut % (Auto) (units ( unknown) date) (50-75) % unknown) (unknown) (no (unknown) (unknown) Neut % (Auto) (units ( unknown) date) 64.7 (50-75) % unknown) (unknown) (no (unknown) (unknown) No Action (units (unkn own) date) unknown) (unknown) (no (unknown) (unknown) No scleral (units (unk nown) date) icterus. No unknown) injection or drainage. (unknown) (no (unknown) (unknown) Noncontrast 3 mm (units (unknown) date) thick sections unknown) acquired from the skull base to the T4 level.? (unknown) (no (unknown) (unknown) Noncontrast 4.5 mm (units (unknown) date) thick angled axial unknown) sections acquired from the foramen magnum (unknown) (no (unknown) (unknown) Ordered: (units (unkno wn) date) unknown) (unknown) (no (unknown) (unknown) Ordering Provider: (units (unknown) date) Jung Dejesus D.O. unknown) (unknown) (no (unknown) (unknown) Orders (units (unkno wn) date) unknown) (unknown) (no (unknown) (unknown) PROCEDURE:? CT (units (unknown) date) CERVICAL SPINE WO unknown) CON (unknown) (no (unknown) (unknown) PROCEDURE:? CT (units (unknown) date) HEAD/BRAIN WO CON unknown) (unknown) (no (unknown) (unknown) PSYCHIATRIC: No (units (unknown) date) concerning unknown) psychosocial issues. (unknown) (no (unknown) (unknown) Patient History (units (unknown) date) unknown) (unknown) (no (unknown) (unknown) Patient observed (units (unknown) date) for some time unknown) before labs added. He has continued to have a (unknown) (no (unknown) (unknown) Patient: (units (unkno wn) date) Dominic Viveros unknown) MR#: M (unknown) (no (unknown) (unknown) Patient: (units (unkno wn) date) Dominic Viveros unknown) (unknown) (no (unknown) (unknown) Maxim Valadez (units (un known) date) unknown) (unknown) (no (unknown) (unknown) Potassium (units (unkn own) date) (3.4-5.1) mmol/L unknown) (unknown) (no (unknown) (unknown) Potassium (units (unkn own) date) (3.4-5.1) mmol/L unknown) (unknown) (no (unknown) (unknown) Potassium 4.5 (units (unknown) date) (3.4-5.1) mmol/L unknown) (unknown) (no (unknown) (unknown) Prescriptions: (units (unknown) date) unknown) (unknown) (no (unknown) (unknown) Procedure: CT (units ( unknown) date) cervical spine wo unknown) con (unknown) (no (unknown) (unknown) Procedure: CT (units ( unknown) date) head/brain wo con unknown) (unknown) (no (unknown) (unknown) Prolactin (units (unkn own) date) (3.7-17.9) ng/mL unknown) (unknown) (no (unknown) (unknown) Prolactin (units (unkn own) date) (3.7-17.9) ng/mL unknown) (unknown) (no (unknown) (unknown) Prolactin 18.9 H (units (unknown) date) (3.7-17.9) ng/mL unknown) (unknown) (no (unknown) (unknown) Prolactin Stat (units (unknown) date) unknown) (unknown) (no (unknown) (unknown) Pulse Oximetry 92 (units (unknown) date) 12/07/21 20:23 unknown) (unknown) (no (unknown) (unknown) Pulse Oximetry 92 (units (unknown) date) unknown) (unknown) (no (unknown) (unknown) Pulse Rate 88 (units (unknown) date) 12/07/21 20:23 unknown) (unknown) (no (unknown) (unknown) Pulse Rate 88 (units ( unknown) date) unknown) (unknown) (no (unknown) (unknown) RDW (units (unkno wn) date) (11.6-14.8) % unknown) (unknown) (no (unknown) (unknown) RDW (11.6-14.8) (units (unknown) date) % unknown) (unknown) (no (unknown) (unknown) RDW 13.7 (units (unkn own) date) (11.6-14.8) % unknown) (unknown) (no (unknown) (unknown) RESPIRATORY: Clear (units (unknown) date) to auscultation. unknown) Breath sounds equal bilaterally. No wheezes, (unknown) (no (unknown) (unknown) RESPIRATORY: (units (u nknown) date) Denies dyspnea, unknown) cough, wheezing, hemoptysis, sputum. (unknown) (no (unknown) (unknown) Dominic Viveros (units (unknown) date) D??76??M?? unknown) 5 (unknown) (no (unknown) (unknown) Reevaluation #1: (units (unknown) date) unknown) (unknown) (no (unknown) (unknown) Reevaluation(s) (units (unknown) date) unknown) (unknown) (no (unknown) (unknown) Referrals: (units (unk nown) date) unknown) (unknown) (no (unknown) (unknown) Related Data (units (u nknown) date) unknown) (unknown) (no (unknown) (unknown) Respiratory Rate (units (unknown) date) 22 12/07/21 20:23 unknown) (unknown) (no (unknown) (unknown) Respiratory Rate (units (unknown) date) 22 unknown) (unknown) (no (unknown) (unknown) Result diagrams: (units (unknown) date) unknown) (unknown) (no (unknown) (unknown) Review of Systems (units (unknown) date) unknown) (unknown) (no (unknown) (unknown) Emeka Robertson (units (unknown) date) unknown) (unknown) (no (unknown) (unknown) Sudarshan Calderon (units (u nknown) date) unknown) (unknown) (no (unknown) (unknown) S/P CABG x 3 (units (u nknown) date) () unknown) (unknown) (no (unknown) (unknown) S/P cervical (units (u nknown) date) spinal fusion unknown) (unknown) (no (unknown) (unknown) S/P lumbar fusion (units (unknown) date) unknown) (unknown) (no (unknown) (unknown) SARS-CoV-2 (PCR) (units (unknown) date) (Negative) unknown) (unknown) (no (unknown) (unknown) SARS-CoV-2 (PCR) (units (unknown) date) (Negative) unknown) (unknown) (no (unknown) (unknown) SARS-CoV-2 (PCR) (units (unknown) date) Negative unknown) (Negative) (unknown) (no (unknown) (unknown) SKIN: Denies rash, (units (unknown) date) skin lesions, or unknown) other (unknown) (no (unknown) (unknown) SKIN: No rash or (units (unknown) date) erythema of visible unknown) areas (unknown) (no (unknown) (unknown) Sagittal (units (unkno wn) date) unknown) (unknown) (no (unknown) (unknown) Salicylate Stat (units (unknown) date) unknown) (unknown) (no (unknown) (unknown) Salicylates (units (un known) date) (<20) mg/dL unknown) (unknown) (no (unknown) (unknown) Salicylates < (units (unknown) date) 1.0 (<20) mg/dL unknown) (unknown) (no (unknown) (unknown) Salicylates (units (un known) date) (<20) mg/dL unknown) (unknown) (no (unknown) (unknown) Signed By: (units (unk nown) date) unknown) (unknown) (no (unknown) (unknown) Sinuses:? (units (unkn own) date) Visualized sinuses unknown) redemonstrate wall thickening and mucoperiosteal (unknown) (no (unknown) (unknown) Skull and face:? (units (unknown) date) Calvarium and unknown) visualized facial bones appear intact, without (unknown) (no (unknown) (unknown) Smoking Status: (units (unknown) date) Former smoker unknown) (unknown) (no (unknown) (unknown) Smoking Status: (units (unknown) date) Former smoker unknown) (unknown) (no (unknown) (unknown) Social History (units (unknown) date) (Reviewed 12/08/21 unknown) @ 01:57 by Jung Dejesus DO) (unknown) (no (unknown) (unknown) Sodium (units (unkno wn) date) (137-145) mmol/L unknown) (unknown) (no (unknown) (unknown) Sodium (137-145) (units (unknown) date) mmol/L unknown) (unknown) (no (unknown) (unknown) Sodium 140 (units (u nknown) date) (137-145) mmol/L unknown) (unknown) (no (unknown) (unknown) Sodium Chloride (units (unknown) date) (Normal Saline unknown) 0.9%) 1,000 mls @ 150 mls/hr IV CONT BLOSSOM (unknown) (no (unknown) (unknown) Soft tissues:? (units (unknown) date) Prevertebral soft unknown) tissues are normal in thickness.? No (unknown) (no (unknown) (unknown) Source: patient, (units (unknown) date) family and EMS unknown) (unknown) (no (unknown) (unknown) Stated Complaint: (units (unknown) date) Back Pain unknown) (unknown) (no (unknown) (unknown) [id number]-SNE-DgV (units (unknown) date) Reductase AdvReac unknown) Mild WEAK Verified 11/28/21 15:33 (unknown) (no (unknown) (unknown) Substance Use (units ( unknown) date) Type: does not use unknown) (unknown) (no (unknown) (unknown) Sulfa (Sulfonamide (units (unknown) date) Allergy Mild RASH unknown) Verified 11/28/21 15:33 (unknown) (no (unknown) (unknown) Surgical History (units (unknown) date) (Reviewed 12/08/21 unknown) @ 01:57 by Jung Dejesus DO) (unknown) (no (unknown) (unknown) Andre Spear (units ( unknown) date) unknown) (unknown) (no (unknown) (unknown) TECHNIQUE:? (units (un known) date) unknown) (unknown) (no (unknown) (unknown) TSH (units (unkno wn) date) (0.47-4.68) uIU/mL unknown) (unknown) (no (unknown) (unknown) TSH (0.47-4.68) (units (unknown) date) uIU/mL unknown) (unknown) (no (unknown) (unknown) TSH 2.07 (units (unkn own) date) (0.47-4.68) uIU/mL unknown) (unknown) (no (unknown) (unknown) Telemetry Strips (units (unknown) date) unknown) (unknown) (no (unknown) (unknown) Temperature 97.4 (units (unknown) date) F L 12/07/21 20:23 unknown) (unknown) (no (unknown) (unknown) Temperature 97.4 F (units (unknown) date) L unknown) (unknown) (no (unknown) (unknown) There is a small (units (unknown) date) right choroidal unknown) fissure cyst redemonstrated.? (unknown) (no (unknown) (unknown) There is mild (units ( unknown) date) cerebral volume unknown) loss, with resultant ventricular and sulcal (unknown) (no (unknown) (unknown) Thyroid (units (unkno wn) date) Stimulating Hormone unknown) Stat (unknown) (no (unknown) (unknown) Tibia/Fibula X-Ray (units (unknown) date) (Signed) unknown) (unknown) (no (unknown) (unknown) Time Seen by (units (u nknown) date) Provider: 12/07/21 unknown) 20:22 (unknown) (no (unknown) (unknown) Total Bilirubin (units (unknown) date) (0.2-1.3) mg/dL unknown) (unknown) (no (unknown) (unknown) Total Bilirubin (units (unknown) date) (0.2-1.3) mg/dL unknown) (unknown) (no (unknown) (unknown) Total Bilirubin (units (unknown) date) 0.9 (0.2-1.3) unknown) mg/dL (unknown) (no (unknown) (unknown) Total Protein (units ( unknown) date) (6.3-8.2) g/dL unknown) (unknown) (no (unknown) (unknown) Total Protein (units ( unknown) date) (6.3-8.2) g/dL unknown) (unknown) (no (unknown) (unknown) Total Protein (units ( unknown) date) 7.0 (6.3-8.2) unknown) g/dL (unknown) (no (unknown) (unknown) U Benzodiazepines (units (unknown) date) Scrn (Negative) unknown) (unknown) (no (unknown) (unknown) U Benzodiazepines (units (unknown) date) Scrn Positive H unknown) (Negative) (unknown) (no (unknown) (unknown) U Marijuana (THC) (units (unknown) date) Screen unknown) (Negative) (unknown) (no (unknown) (unknown) U Marijuana (THC) (units (unknown) date) Screen Negative unknown) (Negative) (unknown) (no (unknown) (unknown) U Methamphetamines (units (unknown) date) Scrn (Negative) unknown) (unknown) (no (unknown) (unknown) U Methamphetamines (units (unknown) date) Scrn Negative unknown) (Negative) (unknown) (no (unknown) (unknown) U Opiates 300ng/mL (units (unknown) date) cut (Negative) unknown) (unknown) (no (unknown) (unknown) U Opiates 300ng/mL (units (unknown) date) cut Positive H unknown) (Negative) (unknown) (no (unknown) (unknown) U Tricyclic (units (un known) date) Antidepress unknown) (Negative) (unknown) (no (unknown) (unknown) U Tricyclic (units (un known) date) Antidepress unknown) Negative (Negative) (unknown) (no (unknown) (unknown) Ur Amphetamines (units (unknown) date) Screen unknown) (Negative) (unknown) (no (unknown) (unknown) Ur Amphetamines (units (unknown) date) Screen Negative unknown) (Negative) (unknown) (no (unknown) (unknown) Ur Barbiturates (units (unknown) date) Screen unknown) (Negative) (unknown) (no (unknown) (unknown) Ur Barbiturates (units (unknown) date) Screen Negative unknown) (Negative) (unknown) (no (unknown) (unknown) Ur Culture (units (unk nown) date) Indicated? unknown) (unknown) (no (unknown) (unknown) Ur Culture (units (unk nown) date) Indicated? unknown) (unknown) (no (unknown) (unknown) Ur Culture (units (unk nown) date) Indicated? Cult unknown) not indicated (unknown) (no (unknown) (unknown) Ur Leukocyte (units (u nknown) date) Esterase unknown) (NEGATIVE) (unknown) (no (unknown) (unknown) Ur Leukocyte (units (u nknown) date) Esterase unknown) Negative (NEGATIVE) (unknown) (no (unknown) (unknown) Ur Leukocyte (units (u nknown) date) Esterase unknown) (NEGATIVE) (unknown) (no (unknown) (unknown) Ur MDMA Scrn (units (u nknown) date) (Ecstasy) unknown) (Negative) (unknown) (no (unknown) (unknown) Ur MDMA Scrn (units (u nknown) date) (Ecstasy) Negative unknown) (Negative) (unknown) (no (unknown) (unknown) Ur Oxycodone (units (u nknown) date) Screen unknown) (Negative) (unknown) (no (unknown) (unknown) Ur Oxycodone (units (u nknown) date) Screen Negative unknown) (Negative) (unknown) (no (unknown) (unknown) Ur Phencyclidine (units (unknown) date) Scrn (Negative) unknown) (unknown) (no (unknown) (unknown) Ur Phencyclidine (units (unknown) date) Scrn Negative unknown) (Negative) (unknown) (no (unknown) (unknown) Ur Specific (units (un known) date) [place] unknown) (1.000-1.035) (unknown) (no (unknown) (unknown) Ur Specific (units (un known) date) [place] 1.020 unknown) (1.000-1.035) (unknown) (no (unknown) (unknown) Ur Specific (units (un known) date) [place] unknown) (1.000-1.035) (unknown) (no (unknown) (unknown) Ur Squamous Epith (units (unknown) date) Cells (0-5/HPF) unknown) (unknown) (no (unknown) (unknown) Ur Squamous Epith (units (unknown) date) Cells 0-1 /hpf unknown) (0-5/HPF) (unknown) (no (unknown) (unknown) Ur Squamous Epith (units (unknown) date) Cells (0-5/HPF) unknown) (unknown) (no (unknown) (unknown) Urinalysis and (units (unknown) date) Microscopic Stat unknown) (unknown) (no (unknown) (unknown) Urine Appearance (units (unknown) date) unknown) (unknown) (no (unknown) (unknown) Urine Appearance (units (unknown) date) unknown) (unknown) (no (unknown) (unknown) Urine Appearance (units (unknown) date) Clear unknown) (unknown) (no (unknown) (unknown) Urine Bacteria (units (unknown) date) (None) unknown) (unknown) (no (unknown) (unknown) Urine Bacteria (units (unknown) date) None seen (None) unknown) (unknown) (no (unknown) (unknown) Urine Bacteria (units (unknown) date) (None) unknown) (unknown) (no (unknown) (unknown) Urine Bilirubin (units (unknown) date) (NEGATIVE) unknown) (unknown) (no (unknown) (unknown) Urine Bilirubin (units (unknown) date) Negative unknown) (NEGATIVE) (unknown) (no (unknown) (unknown) Urine Bilirubin (units (unknown) date) (NEGATIVE) unknown) (unknown) (no (unknown) (unknown) Urine Cocaine (units ( unknown) date) Screen unknown) (Negative) (unknown) (no (unknown) (unknown) Urine Cocaine (units ( unknown) date) Screen Negative unknown) (Negative) (unknown) (no (unknown) (unknown) Urine Color (units (un known) date) unknown) (unknown) (no (unknown) (unknown) Urine Color (units (un known) date) unknown) (unknown) (no (unknown) (unknown) Urine Color (units (un known) date) Yellow unknown) (unknown) (no (unknown) (unknown) Urine Drug Screen, (units (unknown) date) Rapid Stat unknown) (unknown) (no (unknown) (unknown) Urine Glucose (UA) (units (unknown) date) (Negative) unknown) g/dL (unknown) (no (unknown) (unknown) Urine Glucose (UA) (units (unknown) date) Negative unknown) (Negative) g/dL (unknown) (no (unknown) (unknown) Urine Glucose (UA) (units (unknown) date) (Negative) g/dL unknown) (unknown) (no (unknown) (unknown) Urine Ketones (units ( unknown) date) (NEGATIVE) unknown) (unknown) (no (unknown) (unknown) Urine Ketones (units ( unknown) date) Trace H (NEGATIVE) unknown) (unknown) (no (unknown) (unknown) Urine Ketones (units ( unknown) date) (NEGATIVE) unknown) (unknown) (no (unknown) (unknown) Urine Methadone (units (unknown) date) Screen unknown) (Negative) (unknown) (no (unknown) (unknown) Urine Methadone (units (unknown) date) Screen Negative unknown) (Negative) (unknown) (no (unknown) (unknown) Urine Nitrate (units ( unknown) date) (Negative) unknown) (unknown) (no (unknown) (unknown) Urine Nitrate (units ( unknown) date) Negative unknown) (Negative) (unknown) (no (unknown) (unknown) Urine Nitrate (units ( unknown) date) (Negative) unknown) (unknown) (no (unknown) (unknown) Urine Occult Blood (units (unknown) date) (Negative) unknown) (unknown) (no (unknown) (unknown) Urine Occult Blood (units (unknown) date) Negative unknown) (Negative) (unknown) (no (unknown) (unknown) Urine Occult Blood (units (unknown) date) (Negative) unknown) (unknown) (no (unknown) (unknown) Urine Protein (units ( unknown) date) (Negative) unknown) (unknown) (no (unknown) (unknown) Urine Protein (units ( unknown) date) Negative unknown) (Negative) (unknown) (no (unknown) (unknown) Urine Protein (units ( unknown) date) (Negative) unknown) (unknown) (no (unknown) (unknown) Urine RBC (units (unkn own) date) (0-5/HPF) unknown) (unknown) (no (unknown) (unknown) Urine RBC None (units (unknown) date) seen (0-5/HPF) unknown) (unknown) (no (unknown) (unknown) Urine RBC (units (unkn own) date) (0-5/HPF) unknown) (unknown) (no (unknown) (unknown) Urine Urobilinogen (units (unknown) date) (0.2) E.U./dL unknown) (unknown) (no (unknown) (unknown) Urine Urobilinogen (units (unknown) date) 0.2 (0.2) unknown) E.U./dL (unknown) (no (unknown) (unknown) Urine Urobilinogen (units (unknown) date) (0.2) E.U./dL unknown) (unknown) (no (unknown) (unknown) Urine WBC (units (unkn own) date) (0-5/HPF) unknown) (unknown) (no (unknown) (unknown) Urine WBC None (units (unknown) date) seen (0-5/HPF) unknown) (unknown) (no (unknown) (unknown) Urine WBC (units (unkn own) date) (0-5/HPF) unknown) (unknown) (no (unknown) (unknown) Urine pH (units (unkno wn) date) (4.5-8.0) unknown) (unknown) (no (unknown) (unknown) Urine pH 5.0 (units (unknown) date) (4.5-8.0) unknown) (unknown) (no (unknown) (unknown) Urine pH (units (unkno wn) date) (4.5-8.0) unknown) (unknown) (no (unknown) (unknown) Vascular (units (unkno wn) date) Ultrasound (Signed) unknown) (unknown) (no (unknown) (unknown) Ventricular (units (un known) date) bigeminy unknown) (unknown) (no (unknown) (unknown) Vital Signs (units (un known) date) unknown) (unknown) (no (unknown) (unknown) Vital signs: (units (u nknown) date) unknown) (unknown) (no (unknown) (unknown) Charles,Lexx (units (u nknown) date) unknown) (unknown) (no (unknown) (unknown) [Embedded Image (units (unknown) date) Not Available] unknown) (unknown) (no (unknown) (unknown) [[id number] (units (unknown) date) REDUCTASE unknown) (unknown) (no (unknown) (unknown) [SULFA (units (unkno wn) date) (SULFONAMIDE unknown) (unknown) (no (unknown) (unknown) acetaminophen 300 (units (unknown) date) mg-codeine 30 mg 1 unknown) tab PO Q6HR PRN 10/08/21 10/08/21 (unknown) (no (unknown) (unknown) acetaminophen 325 (units (unknown) date) mg tablet 650 mg PO unknown) Q6H PRN #60 tab 11/06/20 (unknown) (no (unknown) (unknown) albuterol sulfate (units (unknown) date) 1.25 mg/3 mL 2.5 mg unknown) (6 mL) INHALATION QID #90 ml 11/28/21 (unknown) (no (unknown) (unknown) alcohol intake (units (unknown) date) frequency: unknown) holidays/special occasions only (unknown) (no (unknown) (unknown) alcohol intake: (units (unknown) date) current unknown) (unknown) (no (unknown) (unknown) and coronal (units (un known) date) reformats were then unknown) constructed.? For radiation dose reduction, the (unknown) (no (unknown) (unknown) and shape.? (units (un known) date) unknown) (unknown) (no (unknown) (unknown) appears (units (unkno wn) date) preserved.? There unknown) is intracranial internal carotid artery (unknown) (no (unknown) (unknown) approximately 0.2 (units (unknown) date) cm. unknown) (unknown) (no (unknown) (unknown) approximately 0.4 (units (unknown) date) cm and minimal unknown) anterolisthesis at C3-C4 measuring (unknown) (no (unknown) (unknown) arthropathy (units (un known) date) throughout the unknown) cervical spine.? Visualized superior ribs are (unknown) (no (unknown) (unknown) atherosclerosis.? (units (unknown) date) unknown) (unknown) (no (unknown) (unknown) benzonatate 100 mg (units (unknown) date) capsule 100 mg PO unknown) TID PRN #14 cap 03/05/21 (unknown) (no (unknown) (unknown) buprenorphine (units ( unknown) date) [BUPRENORPHINE] unknown) AdvReac Mild NAUSEA, Verified 11/28/21 15:33 (unknown) (no (unknown) (unknown) buprenorphine, (units (unknown) date) hyoscyamine, unknown) [id number]-EwK Reductase Inhibitor, diazepam (unknown) (no (unknown) (unknown) cefdinir 300 mg (units (unknown) date) capsule 300 mg PO unknown) BID #20 cap 10/09/21 (unknown) (no (unknown) (unknown) celecoxib (units (unkn own) date) [CELECOXIB] Allergy unknown) Mild SWELLING Verified 11/28/21 15:33 (unknown) (no (unknown) (unknown) cetirizine 10 mg (units (unknown) date) capsule (Zyrtec) 10 unknown) mg PO DAILY 05/22/19 10/08/21 (unknown) (no (unknown) (unknown) chronic back pain, (units (unknown) date) ataxia, AFib, COPD unknown) presents for evaluation of a witnessed (unknown) (no (unknown) (unknown) chronic sinusitis. (units (unknown) date) unknown) (unknown) (no (unknown) (unknown) constipation, (units ( unknown) date) melena. unknown) (unknown) (no (unknown) (unknown) consumed a large (units (unknown) date) amount of alcohol unknown) tonight in addition to many other medications (unknown) (no (unknown) (unknown) contusion, (units (unk nown) date) laceration, unknown) hematoma or evidence of depressed skull fracture (unknown) (no (unknown) (unknown) degeneration also (units (unknown) date) demonstrated at unknown) C2-C3 and C3-C4.? There is multilevel moderate (unknown) (no (unknown) (unknown) degenerative disc (units (unknown) date) disease within the unknown) visualized upper thoracic spine.? Mild disc (unknown) (no (unknown) (unknown) diazepam [From (units (unknown) date) Valium] AdvReac unknown) Confusion Verified 11/28/21 15:33 (unknown) (no (unknown) (unknown) diclofenac sodium (units (unknown) date) 1 % topical gel 2 g unknown) TOPICAL QID #100 g 11/19/21 (unknown) (no (unknown) (unknown) difficult time (units ( unknown) date) ambulating and is unknown) unsafe to discharge at this time. His has (unknown) (no (unknown) (unknown) ferrous sulfate (units (unknown) date) 325 mg (65 mg 325 unknown) mg PO DAILY 10/19/19 10/08/21 (unknown) (no (unknown) (unknown) fluticasone (units (un known) date) propionate 50 1 unknown) spray INTRANASAL DAILY PRN #0 11/02/17 10/08/21 (unknown) (no (unknown) (unknown) following (units (unkn own) date) unknown) (unknown) (no (unknown) (unknown) furosemide 40 mg (units (unknown) date) tablet (Lasix) 40 unknown) mg PO DAILY 10/08/21 10/08/21 (unknown) (no (unknown) (unknown) glipizide 2.5 mg (units (unknown) date) tablet, extended unknown) 2.5 mg PO DAILY 10/08/21 10/08/21 (unknown) (no (unknown) (unknown) ground level fall. (units (unknown) date) He stumbled and unknown) fell forward, striking his nose. There was (unknown) (no (unknown) (unknown) hand (units (unkno wn) date) unknown) (unknown) (no (unknown) (unknown) hematomas.? No (units (unknown) date) apical unknown) pneumothoraces.? (unknown) (no (unknown) (unknown) household members: (units (unknown) date) spouse unknown) (unknown) (no (unknown) (unknown) hyoscyamine (units (un known) date) [HYOSCYAMINE] unknown) AdvReac Mild LEG Verified 11/28/21 15:33 (unknown) (no (unknown) (unknown) intact.? (units (unkno wn) date) unknown) (unknown) (no (unknown) (unknown) iron) (units (unkno wn) date) tablet,delayed unknown) release (unknown) (no (unknown) (unknown) latex [LATEX] (units ( unknown) date) Allergy Mild RASH unknown) Verified 11/28/21 15:33 (unknown) (no (unknown) (unknown) lesions.? (units (unkn own) date) unknown) (unknown) (no (unknown) (unknown) levalbuterol HCl (units (unknown) date) 1.25 mg/3 mL 3 ml unknown) INHALATION Q6H PRN 10/16/18 10/08/21 (unknown) (no (unknown) (unknown) levalbuterol (units (u nknown) date) tartrate 45 1 puff unknown) INHALATION Q4-6H PRN #15 06/22/18 (unknown) (no (unknown) (unknown) mastoid air cells (units (unknown) date) are clear. unknown) (unknown) (no (unknown) (unknown) mcg/actuation (units ( unknown) date) aerosol inhaler unknown) gram (unknown) (no (unknown) (unknown) mcg/actuation (units ( unknown) date) nasal unknown) (unknown) (no (unknown) (unknown) measuring (units (unkn own) date) unknown) (unknown) (no (unknown) (unknown) meclizine 25 mg (units (unknown) date) tablet 25 mg PO QID unknown) PRN #30 tab 10/09/21 (unknown) (no (unknown) (unknown) methocarbamol 500 (units (unknown) date) mg tablet 500 mg PO unknown) Q8H PRN #14 tab 11/19/21 (unknown) (no (unknown) (unknown) metoprolol (units (unk nown) date) tartrate 100 mg unknown) tablet 100 mg PO BID 10/16/18 10/08/21 (unknown) (no (unknown) (unknown) mg tablet (units (unkn own) date) (Percocet) unknown) (unknown) (no (unknown) (unknown) mild distress. (units (unknown) date) GCS 15, smells of unknown) alcohol and slurring his words (unknown) (no (unknown) (unknown) moderate (units (unkno wn) date) unknown) (unknown) (no (unknown) (unknown) multiple levels as (units (unknown) date) described. unknown) (unknown) (no (unknown) (unknown) multivitamin (units (u nknown) date) (Multiple Vitamins) unknown) 1 tab PO DAILY #0 12/20/16 10/08/21 (unknown) (no (unknown) (unknown) no loss of (units (unk nown) date) consciousness and unknown) he has had no nausea or vomiting. He denies any (unknown) (no (unknown) (unknown) other injuries (units (unknown) date) such as neck, back unknown) or extremities. His states that he (unknown) (no (unknown) (unknown) oxycodone 5 mg (units (unknown) date) tablet 10 mg PO unknown) Q4-5H PRN #60 tab 11/06/20 (unknown) (no (unknown) (unknown) oxycodone-acetamin (units (unknown) date) ophen 5 mg-325 1 unknown) tab PO Q8H PRN #10 tab 11/19/21 (unknown) (no (unknown) (unknown) oxycodone-acetamin (units (unknown) date) ophen 5 mg-325 1 unknown) tab PO TID PRN #10 tab 11/19/21 (unknown) (no (unknown) (unknown) paravertebral (units ( unknown) date) unknown) (unknown) (no (unknown) (unknown) patient (units (unkno wn) date) unknown) (unknown) (no (unknown) (unknown) prednisone 20 mg (units (unknown) date) tablet 20 mg PO unknown) DAILY #32 tab 11/28/21 (unknown) (no (unknown) (unknown) prednisone 50 mg (units (unknown) date) tablet 50 mg PO unknown) DAILY #5 tab 11/19/21 (unknown) (no (unknown) (unknown) prominence.? (units (u nknown) date) unknown) (unknown) (no (unknown) (unknown) release 24 hr (units ( unknown) date) (Glucotrol XL) unknown) (unknown) (no (unknown) (unknown) seizures, (units (unkn own) date) incoordination. unknown) (unknown) (no (unknown) (unknown) sequelae of (units (un known) date) unknown) (unknown) (no (unknown) (unknown) sinusitis.? The (units (unknown) date) unknown) (unknown) (no (unknown) (unknown) size.? (units (unkno wn) date) unknown) (unknown) (no (unknown) (unknown) solution for (units (u nknown) date) nebulization unknown) (unknown) (no (unknown) (unknown) solution for (units (u nknown) date) nebulization unknown) (unknown) (no (unknown) (unknown) spray,suspension (units (unknown) date) unknown) (unknown) (no (unknown) (unknown) study.? There are (units (unknown) date) postsurgical unknown) changes also redemonstrated status post prior (unknown) (no (unknown) (unknown) substance use (units ( unknown) date) type: does not use unknown) (unknown) (no (unknown) (unknown) suspicious (units (unk nown) date) unknown) (unknown) (no (unknown) (unknown) tablet (units (unkno wn) date) unknown) (unknown) (no (unknown) (unknown) that he would (units ( unknown) date) routinely take. He unknown) is activated as a modified trauma. (unknown) (no (unknown) (unknown) the prior (units (unkn own) date) unknown) (unknown) (no (unknown) (unknown) thickening (units (unk nown) date) unknown) (unknown) (no (unknown) (unknown) to the (units (unkno wn) date) unknown) (unknown) (no (unknown) (unknown) trazodone 100 mg (units (unknown) date) tablet 400 tab PO unknown) BEDTIME 12/09/17 10/08/21 (unknown) (no (unknown) (unknown) varenicline (units (un known) date) [VARENICLINE] unknown) AdvReac Severe Paranoia Verified 11/28/21 15:33 (unknown) (no (unknown) (unknown) vertex, with (units (u nknown) date) coronal and unknown) sagittal reformats.? For radiation dose reduction, the (unknown) (no (unknown) (unknown) was used:? (units (unk nown) date) automated exposure unknown) control, adjustment of mA and/or kV according to (unknown) (no (unknown) (unknown) within the (units (unk nown) date) visualized left unknown) maxillary sinus suggesting sequelae of chronic (unknown) (no (unknown) (unknown) without erythema, (units (unknown) date) tonsillar unknown) hypertrophy or exudate. Airway patent. Result panel 33 (unknown) (no (unknown) (unknown) (no value) (units (unk nown) date) unknown) (unknown) (no (unknown) (unknown) Radiologist's (units ( unknown) date) Impression: unknown) (unknown) (no (unknown) (unknown) (no value) (units (unk nown) date) unknown) (unknown) (no (unknown) (unknown) Date of Service: (units (unknown) date) 12/07/21 unknown) (unknown) (no (unknown) (unknown) (no value) (units (unk nown) date) unknown) (unknown) (no (unknown) (unknown) 12/07/21 23:05 (units (unknown) date) unknown) (unknown) (no (unknown) (unknown) 1 puff INHALATION (units (unknown) date) Q4-6H PRN (Reason: unknown) shortness of breath or wheezing) Qty: 15 (unknown) (no (unknown) (unknown) 1 spray Intranasal (units (unknown) date) DAILY PRN (Reason: unknown) Allergy Symptoms) Qty: 0 0RF (unknown) (no (unknown) (unknown) 1 tab PO DAILY (units (unknown) date) Qty: 0 0RF unknown) (unknown) (no (unknown) (unknown) 1 tab PO Q6HR PRN (units (unknown) date) (Reason: Back Pain) unknown) 0RF (unknown) (no (unknown) (unknown) 1 tab PO Q8H PRN (units (unknown) date) (Reason: pain) Qty: unknown) 10 0RF (unknown) (no (unknown) (unknown) 1 tab PO TID PRN (units (unknown) date) (Reason: pain) Qty: unknown) 10 0RF (unknown) (no (unknown) (unknown) 10 mg PO DAILY 0RF (units (unknown) date) unknown) (unknown) (no (unknown) (unknown) 10 mg PO Q4-5H PRN (units (unknown) date) (Reason: Pain, unknown) Severe (7-10)) Qty: 60 0RF (unknown) (no (unknown) (unknown) 100 mg PO BID 0RF (units (unknown) date) unknown) (unknown) (no (unknown) (unknown) 100 mg PO TID PRN (units (unknown) date) (Reason: cough) unknown) Qty: 14 0RF (unknown) (no (unknown) (unknown) [address] [place] (units (unknown) date) unknown) (unknown) (no (unknown) (unknown) 2 g topical QID (units (unknown) date) Qty: 100 0RF unknown) (unknown) (no (unknown) (unknown) 2.5 mg PO DAILY (units (unknown) date) 0RF unknown) (unknown) (no (unknown) (unknown) 2.5 mg inhalation (units (unknown) date) QID Qty: 90 1RF unknown) (unknown) (no (unknown) (unknown) 20 mg PO DAILY (units (unknown) date) Qty: 32 0RF unknown) (unknown) (no (unknown) (unknown) 25 mg PO QID PRN (units (unknown) date) (Reason: vertigo) unknown) Qty: 30 0RF (unknown) (no (unknown) (unknown) 3 ml Inhalation (units (unknown) date) Q6H PRN (Reason: unknown) Shortness Of Breath) 0RF (unknown) (no (unknown) (unknown) 300 mg PO BID Qty: (units (unknown) date) 20 0RF unknown) (unknown) (no (unknown) (unknown) 325 mg PO DAILY (units (unknown) date) 0RF unknown) (unknown) (no (unknown) (unknown) 40 mg PO DAILY 0RF (units (unknown) date) unknown) (unknown) (no (unknown) (unknown) 400 tab PO BEDTIME (units (unknown) date) 0RF unknown) (unknown) (no (unknown) (unknown) 50 mg PO DAILY (units (unknown) date) Qty: 5 0RF unknown) (unknown) (no (unknown) (unknown) 500 mg PO Q8H PRN (units (unknown) date) (Reason: muscle unknown) spasm) Qty: 14 0RF (unknown) (no (unknown) (unknown) 60mg x 5 day, 40mg (units (unknown) date) x 5 day, 20mg x5 unknown) day, 10mg x 4 days (unknown) (no (unknown) (unknown) 650 mg PO Q6H PRN (units (unknown) date) (Reason: pain) Qty: unknown) 60 0RF (unknown) (no (unknown) (unknown) ANXIETY, (units (unkno wn) date) unknown) (unknown) (no (unknown) (unknown) Allergies (units (unkn own) date) unknown) (unknown) (no (unknown) (unknown) [facility] [place] (units ( unknown) date) [id number] unknown) (unknown) (no (unknown) (unknown) CT Scan Report (units (unknown) date) unknown) (unknown) (no (unknown) (unknown) Close (units (unkno wn) date) unknown) (unknown) (no (unknown) (unknown) DIZZINESS (units (unkn own) date) unknown) (unknown) (no (unknown) (unknown) Documented by: (units (unknown) date) [email or web address] unknown) (unknown) (no (unknown) (unknown) Documented by: (units (unknown) date) RLAZANI unknown) (unknown) (no (unknown) (unknown) ED Orders (units (unkn own) date) unknown) (unknown) (no (unknown) (unknown) EXPOSURE (units (unkno wn) date) unknown) (unknown) (no (unknown) (unknown) Emergency Report (units (unknown) date) unknown) (unknown) (no (unknown) (unknown) Home Medications (units (unknown) date) unknown) (unknown) (no (unknown) (unknown) INHALE 1 VIAL PER (units (unknown) date) NEBULIZER EVERY 6 unknown) HOURS NEEDED (unknown) (no (unknown) (unknown) [facility] (units (unknown) date) unknown) (unknown) (no (unknown) (unknown) [facility] (units (unknown) date) [address] unknown) [place] [id number] (unknown) (no (unknown) (unknown) JERKING, (units (unkno wn) date) unknown) (unknown) (no (unknown) (unknown) Lab Results (units (un known) date) unknown) (unknown) (no (unknown) (unknown) Label Comments: (units (unknown) date) unknown) (unknown) (no (unknown) (unknown) Last Admin: (units (un known) date) 12/07/21 23:25 unknown) Dose: 150 mls/hr (unknown) (no (unknown) (unknown) Last Admin: (units (un known) date) 12/08/21 01:35 unknown) Dose: 1 tab (unknown) (no (unknown) (unknown) Last Admin: (units (un known) date) 12/08/21 02:34 unknown) Dose: 4 mg (unknown) (no (unknown) (unknown) Launch?Image (units (u nknown) date) unknown) (unknown) (no (unknown) (unknown) MINUTES (units (unkno wn) date) unknown) (unknown) (no (unknown) (unknown) NAUSEA W/I (units (unk nown) date) unknown) (unknown) (no (unknown) (unknown) Point of Care (units ( unknown) date) Testing unknown) (unknown) (no (unknown) (unknown) Previous Rx's (units ( unknown) date) unknown) (unknown) (no (unknown) (unknown) Rx Instructions: (units (unknown) date) unknown) (unknown) (no (unknown) (unknown) Signed (units (unkno wn) date) unknown) (unknown) (no (unknown) (unknown) Spouse Milana (units (u nknown) date) called + reported unknown) patient not taking it regularly. (unknown) (no (unknown) (unknown) Stop: 12/08/21 (units (unknown) date) 01:26 unknown) (unknown) (no (unknown) (unknown) Stop: 12/08/21 (units (unknown) date) 02:32 unknown) (unknown) (no (unknown) (unknown) Vital Signs - 8 hr (units (unknown) date) unknown) (unknown) (no (unknown) (unknown) W/EXTENDED (units (unk nown) date) unknown) (unknown) (no (unknown) (unknown) apply to single (units (unknown) date) elbow, wrist or unknown) hand; for hand includes palm/fingers/back of (unknown) (no (unknown) (unknown) patient states (units (unknown) date) weaning off. unknown) (unknown) (no (unknown) (unknown) take 1 tablet by (units (unknown) date) mouth once daily unknown) (unknown) (no (unknown) (unknown) take 1 tablet by (units (unknown) date) mouth twice a day unknown) (unknown) (no (unknown) (unknown) (no value) (units (unk nown) date) unknown) (unknown) (no (unknown) (unknown) 12/07/21 12/07/21 (units (unknown) date) 12/07/21 unknown) Range/Units (unknown) (no (unknown) (unknown) 12/07/21 12/08/21 (units (unknown) date) Range/Units unknown) (unknown) (no (unknown) (unknown) 23:05 23:05 23:05 (units (unknown) date) unknown) (unknown) (no (unknown) (unknown) 23:05 23:44 23:57 (units (unknown) date) unknown) (unknown) (no (unknown) (unknown) 23:57 01:33 (units (un known) date) unknown) (unknown) (no (unknown) (unknown) Zyrtec 10 mg (units (u nknown) date) Capsule unknown) (unknown) (no (unknown) (unknown) acetaminophen (units ( unknown) date) [Athenol] 325 mg unknown) tablet (unknown) (no (unknown) (unknown) acetaminophen-code (units (unknown) date) ine 300-30 mg unknown) tablet (unknown) (no (unknown) (unknown) albuterol sulfate (units (unknown) date) 1.25 mg/3 mL unknown) solution for nebulization (unknown) (no (unknown) (unknown) benzonatate (units (un known) date) [Tessalon Perles] unknown) 100 mg capsule (unknown) (no (unknown) (unknown) cefdinir 300 mg (units (unknown) date) capsule unknown) (unknown) (no (unknown) (unknown) diclofenac sodium (units (unknown) date) 1 % gel unknown) (unknown) (no (unknown) (unknown) ferrous sulfate (units (unknown) date) 325 mg (65 mg iron) unknown) tablet,delayed release (DR/EC) (unknown) (no (unknown) (unknown) fluticasone (units (un known) date) propionate 16 GM unknown) spray,suspension (unknown) (no (unknown) (unknown) furosemide [Lasix] (units (unknown) date) 40 mg tablet unknown) (unknown) (no (unknown) (unknown) glipizide (units (unkn own) date) [Glucotrol XL] 2.5 unknown) mg tablet extended release 24 hr (unknown) (no (unknown) (unknown) levalbuterol HCl (units (unknown) date) 1.25 mg/3 mL unknown) solution for nebulization (unknown) (no (unknown) (unknown) levalbuterol (units (u nknown) date) tartrate [Xopenex unknown) HFA] 45 mcg/actuation HFA aerosol inhaler (unknown) (no (unknown) (unknown) meclizine 25 mg (units (unknown) date) tablet unknown) (unknown) (no (unknown) (unknown) methocarbamol 500 (units (unknown) date) mg tablet unknown) (unknown) (no (unknown) (unknown) metoprolol (units (unk nown) date) tartrate 100 mg unknown) tablet (unknown) (no (unknown) (unknown) multivitamin (units (u nknown) date) [Multiple Vitamins] unknown) 1 EACH tablet (unknown) (no (unknown) (unknown) oxycodone 5 mg (units (unknown) date) Tablet unknown) (unknown) (no (unknown) (unknown) oxycodone-acetamin (units (unknown) date) ophen [Percocet] unknown) 5-325 mg tablet (unknown) (no (unknown) (unknown) prednisone 20 mg (units (unknown) date) tablet unknown) (unknown) (no (unknown) (unknown) prednisone 50 mg (units (unknown) date) tablet unknown) (unknown) (no (unknown) (unknown) trazodone 100 mg (units (unknown) date) tablet unknown) (unknown) (no (unknown) (unknown) 12/07/21 (units (unkno wn) date) unknown) (unknown) (no (unknown) (unknown) Medication (units (unk nown) date) Instructions unknown) Recorded (unknown) (no (unknown) (unknown) Medication (units (unk nown) date) Instructions unknown) Recorded Confirmed (unknown) (no (unknown) (unknown) been contacted and (units (unknown) date) she will be able to unknown) come pick him up in the morning. (unknown) (no (unknown) (unknown) facet (units (unkno wn) date) unknown) (unknown) (no (unknown) (unknown) junction (units (unkno wn) date) unknown) (unknown) (no (unknown) (unknown) of (units (unkno wn) date) unknown) (unknown) (no (unknown) (unknown) rales, or rhonchi. (units (unknown) date) unknown) (unknown) (no (unknown) (unknown) (Athenol) (units (unkn own) date) unknown) (unknown) (no (unknown) (unknown) (More??) (units (unkno wn) date) unknown) (unknown) (no (unknown) (unknown) (Tessalon Perles) (units (unknown) date) unknown) (unknown) (no (unknown) (unknown) (Xopenex HFA) (units ( unknown) date) unknown) (unknown) (no (unknown) (unknown) - (units (unkno wn) date) unknown) (unknown) (no (unknown) (unknown) [id number] (units (unkn own) date) unknown) (unknown) (no (unknown) (unknown) 08/11/20 (units (unkno wn) date) unknown) (unknown) (no (unknown) (unknown) 08/16/20 (units (unkno wn) date) unknown) (unknown) (no (unknown) (unknown) 08/28/20 (units (unkno wn) date) unknown) (unknown) (no (unknown) (unknown) 09/15/21 (units (unkno wn) date) unknown) (unknown) (no (unknown) (unknown) 10/07/21 (units (unkno wn) date) unknown) (unknown) (no (unknown) (unknown) 10/08/21 (units (unkno wn) date) unknown) (unknown) (no (unknown) (unknown) 10/31/20 (units (unkno wn) date) unknown) (unknown) (no (unknown) (unknown) 11/04/20 (units (unkno wn) date) unknown) (unknown) (no (unknown) (unknown) 11/07/20 (units (unkno wn) date) unknown) (unknown) (no (unknown) (unknown) 11/19/21 (units (unkno wn) date) unknown) (unknown) (no (unknown) (unknown) 11/22/20 (units (unkno wn) date) unknown) (unknown) (no (unknown) (unknown) 11/28/21 (units (unkno wn) date) unknown) (unknown) (no (unknown) (unknown) 12/07/21 (units (unkno wn) date) unknown) (unknown) (no (unknown) (unknown) 12/07/21 20:28 (units (unknown) date) unknown) (unknown) (no (unknown) (unknown) 12/07/21 23:05 (units (unknown) date) unknown) (unknown) (no (unknown) (unknown) 12/07/21 23:21 (units (unknown) date) unknown) (unknown) (no (unknown) (unknown) 12/07/21 23:44 (units (unknown) date) unknown) (unknown) (no (unknown) (unknown) 12/07/21 23:57 (units (unknown) date) unknown) (unknown) (no (unknown) (unknown) 12/28/20 (units (unkno wn) date) unknown) (unknown) (no (unknown) (unknown) 03/05/21 (units (unkno wn) date) unknown) (unknown) (no (unknown) (unknown) 04/16/21 (units (unkno wn) date) unknown) (unknown) (no (unknown) (unknown) 0RF (units (unkno wn) date) unknown) (unknown) (no (unknown) (unknown) 1. No acute (units (un known) date) intracranial unknown) abnormality. (unknown) (no (unknown) (unknown) 1.? No acute (units (u nknown) date) fracture or unknown) subluxation. (unknown) (no (unknown) (unknown) 12 point review of (units (unknown) date) systems is negative unknown) except for those stated above (unknown) (no (unknown) (unknown) 07/18/20 (units (unkno wn) date) unknown) (unknown) (no (unknown) (unknown) 2. Bony remodeling (units (unknown) date) in the left unknown) maxillary sinus redemonstrated consistent with (unknown) (no (unknown) (unknown) 2. Postsurgical (units (unknown) date) changes unknown) redemonstrated throughout the cervical spine with fusion (unknown) (no (unknown) (unknown) 20:23 (units (unkno wn) date) unknown) (unknown) (no (unknown) (unknown) 3. Mild cerebral (units (unknown) date) volume loss.? 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 (units (unkno wn) date) unknown) (unknown) (no (unknown) (unknown) ? (units (unkno wn) date) unknown) (unknown) (no (unknown) (unknown) ?Minimal (units (unkno wn) date) anterolisthesis unknown) also demonstrated at T1-T2.? Findings are similar to (unknown) (no (unknown) (unknown) ACDF at (units (unkno wn) date) unknown) (unknown) (no (unknown) (unknown) ALT (<50) (units ( unknown) date) IU/L unknown) (unknown) (no (unknown) (unknown) ALT (<50) IU/L (units (unknown) date) unknown) (unknown) (no (unknown) (unknown) ALT 31 (<50) (units (unknown) date) IU/L unknown) (unknown) (no (unknown) (unknown) ANTIBIOTICS)] (units ( unknown) date) unknown) (unknown) (no (unknown) (unknown) AST (17-59) (units (unknown) date) IU/L unknown) (unknown) (no (unknown) (unknown) AST (17-59) (units (unknown) date) IU/L unknown) (unknown) (no (unknown) (unknown) AST 32 (17-59) (units (unknown) date) IU/L unknown) (unknown) (no (unknown) (unknown) Accession Number: (units (unknown) date) [id number] ?? unknown) (unknown) (no (unknown) (unknown) Accession Number: (units (unknown) date) [id number] ?? unknown) (unknown) (no (unknown) (unknown) Acct:[id number] (units (unknown) date) unknown) (unknown) (no (unknown) (unknown) Acetaminophen (units ( unknown) date) (10-30) ug/mL unknown) (unknown) (no (unknown) (unknown) Acetaminophen (units ( unknown) date) (10-30) ug/mL unknown) (unknown) (no (unknown) (unknown) Acetaminophen < (units (unknown) date) 10 (10-30) ug/mL unknown) (unknown) (no (unknown) (unknown) Acetaminophen Stat (units (unknown) date) unknown) (unknown) (no (unknown) (unknown) Acetaminophen/Code (units (unknown) date) ine Phosphate unknown) (Codeine/Acetaminop hen 30/300 Tablet) 1 tab PO (unknown) (no (unknown) (unknown) Achalasia (units (unkn own) date) unknown) (unknown) (no (unknown) (unknown) Age/Sex: 76 / M (units (unknown) date) unknown) (unknown) (no (unknown) (unknown) Age/Sex: 76 / M (units (unknown) date) unknown) (unknown) (no (unknown) (unknown) Albumin (units (unkno wn) date) (3.5-5.0) g/dL unknown) (unknown) (no (unknown) (unknown) Albumin (units (unkno wn) date) (3.5-5.0) g/dL unknown) (unknown) (no (unknown) (unknown) Albumin 4.1 (units ( unknown) date) (3.5-5.0) g/dL unknown) (unknown) (no (unknown) (unknown) Albumin/Globulin (units (unknown) date) Ratio (1.0-2.8) unknown) (unknown) (no (unknown) (unknown) Albumin/Globulin (units (unknown) date) Ratio (1.0-2.8) unknown) (unknown) (no (unknown) (unknown) Albumin/Globulin (units (unknown) date) Ratio 1.4 unknown) (1.0-2.8) (unknown) (no (unknown) (unknown) Alkaline (units (unkno wn) date) Phosphatase unknown) (38-126) U/L (unknown) (no (unknown) (unknown) Alkaline (units (unkno wn) date) Phosphatase unknown) (38-126) U/L (unknown) (no (unknown) (unknown) Alkaline (units (unkno wn) date) Phosphatase 64 unknown) (38-126) U/L (unknown) (no (unknown) (unknown) Allergy/Adv: (units (u nknown) date) celecoxib, latex, unknown) Sulfa (Sulfonamide Antibiotics), varenicline, (unknown) (no (unknown) (unknown) Allergy/AdvReac (units (unknown) date) Type Severity unknown) Reaction Status Date / Time (unknown) (no (unknown) (unknown) Anginal pain (units (u nknown) date) unknown) (unknown) (no (unknown) (unknown) Ankle X-Ray (units (un known) date) (Signed) unknown) (unknown) (no (unknown) (unknown) Antibiotics) (units (u nknown) date) unknown) (unknown) (no (unknown) (unknown) Approved by: (units (u nknown) date) Maxim Valadez, unknown) M.D. on 12/07/2021 at 21:44 ? (unknown) (no (unknown) (unknown) Approved by: (units (u nknown) date) Maxim Valadez, unknown) MTramDTram on 12/07/2021 at 21:48 ? (unknown) (no (unknown) (unknown) Asthma (units (unkno wn) date) unknown) (unknown) (no (unknown) (unknown) Atrial (units (unkno wn) date) fibrillation unknown) (unknown) (no (unknown) (unknown) BACK: Nontender (units (unknown) date) without deformity unknown) or crepitance. No flank tenderness. (unknown) (no (unknown) (unknown) BUN (9-20) (units (unknown) date) mg/dL unknown) (unknown) (no (unknown) (unknown) BUN (9-20) (units ( unknown) date) mg/dL unknown) (unknown) (no (unknown) (unknown) BUN 21 H (units (unk nown) date) (9-20) mg/dL unknown) (unknown) (no (unknown) (unknown) BUN/Creatinine (units (unknown) date) Ratio (6-22) unknown) (unknown) (no (unknown) (unknown) BUN/Creatinine (units (unknown) date) Ratio (6-22) unknown) (unknown) (no (unknown) (unknown) BUN/Creatinine (units (unknown) date) Ratio 23.9 H unknown) (6-22) (unknown) (no (unknown) (unknown) Baso # (Auto) (units ( unknown) date) (0-100) /uL unknown) (unknown) (no (unknown) (unknown) Baso # (Auto) (units ( unknown) date) (0-100) /uL unknown) (unknown) (no (unknown) (unknown) Baso # (Auto) 100 (units (unknown) date) (0-100) /uL unknown) (unknown) (no (unknown) (unknown) Baso % (Auto) (units ( unknown) date) (0-2) % unknown) (unknown) (no (unknown) (unknown) Baso % (Auto) (units ( unknown) date) (0-2) % unknown) (unknown) (no (unknown) (unknown) Baso % (Auto) 0.8 (units (unknown) date) (0-2) % unknown) (unknown) (no (unknown) (unknown) Blood Culture Stat (units (unknown) date) unknown) (unknown) (no (unknown) (unknown) Blood Pressure (units (unknown) date) 159/98 H 12/07/21 unknown) 20:23 (unknown) (no (unknown) (unknown) Blood Pressure (units (unknown) date) 159/98 H unknown) (unknown) (no (unknown) (unknown) Bones:? No (units (unk nown) date) fractures or unknown) subluxation.? There is anterolisthesis at C2-C3 (unknown) (no (unknown) (unknown) Brain MRI (Signed) (units (unknown) date) unknown) (unknown) (no (unknown) (unknown) Brain:? No (units (unkn own) date) intracranial unknown) hemorrhage, mass, or mass effect.? The adams-white matter (unknown) (no (unknown) (unknown) C4-C5 and C7-T1.? (units (unknown) date) There is also unknown) fusion at C5-C6 and C6-C7.? There is mild to (unknown) (no (unknown) (unknown) CARDIOVASCULAR: (units (unknown) date) Denies chest pain, unknown) palpitations, orthopnea, edema, (unknown) (no (unknown) (unknown) CARDIOVASCULAR: (units (unknown) date) Regular rate and unknown) rhythm without murmurs, gallops, or rubs. (unknown) (no (unknown) (unknown) COMPARISON:? (units (u nknown) date) [facility], unknown) CT, CT CERVICAL SPINE WO CON, 04/16/2021, 12:21. (unknown) (no (unknown) (unknown) COMPARISON:? (units (u nknown) date) [facility], unknown) CT, CT HEAD/BRAIN WO CON, 04/16/2021, 12:21. (unknown) (no (unknown) (unknown) COPD (chronic (units ( unknown) date) obstructive unknown) pulmonary disease) (unknown) (no (unknown) (unknown) COVID19 -Nasal (units (unknown) date) RAPID/Pre-Proc Stat unknown) (unknown) (no (unknown) (unknown) CSF spaces:? Basal (units (unknown) date) cisterns are unknown) patent.? The ventricles are symmetric in size (unknown) (no (unknown) (unknown) CT - cervical (units ( unknown) date) spine: unknown) (unknown) (no (unknown) (unknown) CT cervical spine (units (unknown) date) wo con Stat unknown) (unknown) (no (unknown) (unknown) CT head/brain wo (units (unknown) date) con Stat unknown) (unknown) (no (unknown) (unknown) CT scan - head: (units (unknown) date) unknown) (unknown) (no (unknown) (unknown) Calcium (units (unkno wn) date) (8.4-10.2) mg/dL unknown) (unknown) (no (unknown) (unknown) Calcium (units (unkno wn) date) (8.4-10.2) mg/dL unknown) (unknown) (no (unknown) (unknown) Calcium 8.4 (units ( unknown) date) (8.4-10.2) mg/dL unknown) (unknown) (no (unknown) (unknown) Call,Francisco J (units (unk nown) date) unknown) (unknown) (no (unknown) (unknown) Carbon Dioxide (units (unknown) date) (22-32) mmol/L unknown) (unknown) (no (unknown) (unknown) Carbon Dioxide (units (unknown) date) (22-32) mmol/L unknown) (unknown) (no (unknown) (unknown) Carbon Dioxide (units (unknown) date) 27 (22-32) unknown) mmol/L (unknown) (no (unknown) (unknown) Cervical Spine CT (units (unknown) date) (Signed) unknown) (unknown) (no (unknown) (unknown) Cervical spinal (units (unknown) date) stenosis unknown) (unknown) (no (unknown) (unknown) Chest CTA (Signed) (units (unknown) date) unknown) (unknown) (no (unknown) (unknown) Chest X-Ray (units (un known) date) (Signed) unknown) (unknown) (no (unknown) (unknown) Chest/Abdomen/Pelv (units (unknown) date) is CTA (Signed) unknown) (unknown) (no (unknown) (unknown) Chief Complaint: (units (unknown) date) Trauma unknown) (unknown) (no (unknown) (unknown) Chloride (units (unkno wn) date) (98-107) mmol/L unknown) (unknown) (no (unknown) (unknown) Chloride (units (unkno wn) date) (98-107) mmol/L unknown) (unknown) (no (unknown) (unknown) Chloride 104 (units (unknown) date) (98-107) mmol/L unknown) (unknown) (no (unknown) (unknown) 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 (10/22/16) (unknown) (no (unknown) (unknown) Zeina Saavedra (units (u nknown) date) unknown) (unknown) (no (unknown) (unknown) Complete Blood (units (unknown) date) Count AUTO DIFF unknown) Stat (unknown) (no (unknown) (unknown) Comprehensive (units ( unknown) date) Metabolic Panel unknown) Stat (unknown) (no (unknown) (unknown) Coronary artery (units (unknown) date) disease unknown) (unknown) (no (unknown) (unknown) Course (units (unkno wn) date) unknown) (unknown) (no (unknown) (unknown) Creatinine (units (unk nown) date) (0.66-1.25) mg/dL unknown) (unknown) (no (unknown) (unknown) Creatinine (units (unk nown) date) (0.66-1.25) mg/dL unknown) (unknown) (no (unknown) (unknown) Creatinine 0.88 (units (unknown) date) (0.66-1.25) mg/dL unknown) (unknown) (no (unknown) (unknown) : 1945 (units (unknown) date) Acct:[id number] unknown) (unknown) (no (unknown) (unknown) : 1945 (units (unknown) date) unknown) (unknown) (no (unknown) (unknown) Kimmy Gomez MD (units (unknown) date) [Primary Care unknown) Provider] - (unknown) (no (unknown) (unknown) Date of Service: (units (unknown) date) 12/07/21 unknown) (unknown) (no (unknown) (unknown) Departure (units (unkn own) date) unknown) (unknown) (no (unknown) (unknown) Inder Farley (units (u nknown) date) unknown) (unknown) (no (unknown) (unknown) Dictated by: (units (u nknown) date) Maxim Valdaez unknownRui Horton on 12/07/2021 at 21:42 ? ? (unknown) (no (unknown) (unknown) Dictated by: (units (u nknown) date) Maxim Valadez, unknownRui Horton on 12/07/2021 at 21:44 ? ? (unknown) (no (unknown) (unknown) Discharge Plan (units (unknown) date) unknown) (unknown) (no (unknown) (unknown) Discontinued (units (u nknown) date) Medications unknown) (unknown) (no (unknown) (unknown) ENT: Nose without (units (unknown) date) bleeding, purulent unknown) drainage. No nasal septal hematoma Throat (unknown) (no (unknown) (unknown) ER Physician: (units ( unknown) date) Jung Dejesus D.O. unknown) (unknown) (no (unknown) (unknown) EXTREMITIES: No (units (unknown) date) edema or joint unknown) tenderness. (unknown) (no (unknown) (unknown) EYES: Pupils equal (units (unknown) date) round and reactive. unknown) No hyphema Extraocular motions intact. (unknown) (no (unknown) (unknown) Echocardiogram (units (unknown) date) Ultrasound (Signed) unknown) (unknown) (no (unknown) (unknown) Eos # (Auto) (units (u nknown) date) (0-450) /uL unknown) (unknown) (no (unknown) (unknown) Eos # (Auto) (units (u nknown) date) (0-450) /uL unknown) (unknown) (no (unknown) (unknown) Eos # (Auto) 100 (units (unknown) date) (0-450) /uL unknown) (unknown) (no (unknown) (unknown) Eos % (Auto) (units (u nknown) date) (2-4) % unknown) (unknown) (no (unknown) (unknown) Eos % (Auto) (units (u nknown) date) (2-4) % unknown) (unknown) (no (unknown) (unknown) Eos % (Auto) 2.0 (units (unknown) date) (2-4) % unknown) (unknown) (no (unknown) (unknown) Estimated GFR (units ( unknown) date) (>60) mL/min unknown) (unknown) (no (unknown) (unknown) Estimated GFR (units ( unknown) date) (>60) mL/min unknown) (unknown) (no (unknown) (unknown) Estimated GFR > (units (unknown) date) 60 (>60) mL/min unknown) (unknown) (no (unknown) (unknown) Ethanol (ETOH) (units (unknown) date) Stat unknown) (unknown) (no (unknown) (unknown) Ethyl Alcohol ( (units (unknown) date) - 10) mg/dL unknown) (unknown) (no (unknown) (unknown) Ethyl Alcohol ( (units (unknown) date) - 10) mg/dL unknown) (unknown) (no (unknown) (unknown) Ethyl Alcohol (units ( unknown) date) 111 H ( - 10) unknown) mg/dL (unknown) (no (unknown) (unknown) Exam (units (unkno wn) date) unknown) (unknown) (no (unknown) (unknown) Exam Narrative: (units (unknown) date) unknown) (unknown) (no (unknown) (unknown) FINDINGS:? (units (unk nown) date) unknown) (unknown) (no (unknown) (unknown) Family History (units (unknown) date) (Reviewed 12/08/21 unknown) @ 01:57 by Jung Dejesus DO) (unknown) (no (unknown) (unknown) Foot X-Ray (units (unk n) date) (Signed) unknown) (unknown) (no (unknown) (unknown) GASTROINTESTINAL: (units (unknown) date) Abdomen soft, unknown) non-tender, nondistended. (unknown) (no (unknown) (unknown) GASTROINTESTINAL: (units (unknown) date) Denies nausea, unknown) vomiting, abdominal pain, diarrhea, (unknown) (no (unknown) (unknown) GENERAL: Denies (units (unknown) date) chills, fatigue, unknown) malaise, fever, sweats. (unknown) (no (unknown) (unknown) GENERAL: [76 year (units (unknown) date) old patient appears unknown) stated age. Well-developed patient, in (unknown) (no (unknown) (unknown) : Denies (units (unk nown) date) dysuria, frequency, unknown) incontinence, hematuria, urinary retention. (unknown) (no (unknown) (unknown) General (units (unkno wn) date) unknown) (unknown) (no (unknown) (unknown) GenericComposite[P (units (unknown) date) lt Count unknown) (150-400) X10^3/uL ] (unknown) (no (unknown) (unknown) GenericComposite[P (units (unknown) date) lt Count unknown) (150-400) X10^3/uL ] (unknown) (no (unknown) (unknown) GenericComposite[P (units (unknown) date) lt Count 241 unknown) (150-400) X10^3/uL ] (unknown) (no (unknown) (unknown) GenericComposite[R (units (unknown) date) BC (4.5-5.9) unknown) X10^6/uL ] (unknown) (no (unknown) (unknown) GenericComposite[R (units (unknown) date) BC (4.5-5.9) unknown) X10^6/uL ] (unknown) (no (unknown) (unknown) GenericComposite[R (units (unknown) date) BC 4.93 unknown) (4.5-5.9) X10^6/uL ] (unknown) (no (unknown) (unknown) GenericComposite[W (units (unknown) date) BC (4.5-11.0) unknown) X10^3/uL ] (unknown) (no (unknown) (unknown) GenericComposite[W (units (unknown) date) BC (4.5-11.0) unknown) X10^3/uL ] (unknown) (no (unknown) (unknown) GenericComposite[W (units (unknown) date) BC 7.4 unknown) (4.5-11.0) X10^3/uL ] (unknown) (no (unknown) (unknown) Globulin (units (unkno wn) date) (1.7-4.1) g/dL unknown) (unknown) (no (unknown) (unknown) Globulin (units (unkno wn) date) (1.7-4.1) g/dL unknown) (unknown) (no (unknown) (unknown) Globulin 2.9 (units (unknown) date) (1.7-4.1) g/dL unknown) (unknown) (no (unknown) (unknown) Glucose (units (unkno wn) date) (80-110) mg/dL unknown) (unknown) (no (unknown) (unknown) Glucose (units (unkno wn) date) (80-110) mg/dL unknown) (unknown) (no (unknown) (unknown) Glucose 124 H (units (unknown) date) (80-110) mg/dL unknown) (unknown) (no (unknown) (unknown) Glucose POC 118 (units (unknown) date) unknown) (unknown) (no (unknown) (unknown) H/O arthroscopic (units (unknown) date) knee surgery unknown) (11/14/17) (unknown) (no (unknown) (unknown) HEAD: Superficial (units (unknown) date) abrasion on the unknown) bridge of his nose, no other obvious (unknown) (no (unknown) (unknown) HEENT: See HPI (units (unknown) date) unknown) (unknown) (no (unknown) (unknown) HPI - Fall (units (unk nown) date) unknown) (unknown) (no (unknown) (unknown) HPI Narrative: (units (unknown) date) unknown) (unknown) (no (unknown) (unknown) Hand X-Ray (units (unk nown) date) (Signed) unknown) (unknown) (no (unknown) (unknown) Jean Oneill (units (unknown) date) unknown) (unknown) (no (unknown) (unknown) Hct (41-53) % (units (unknown) date) unknown) (unknown) (no (unknown) (unknown) Hct (41-53) % (units (unknown) date) unknown) (unknown) (no (unknown) (unknown) Hct 46.0 (units (unkn own) date) (41-53) % unknown) (unknown) (no (unknown) (unknown) Head CT (Signed) (units (unknown) date) unknown) (unknown) (no (unknown) (unknown) Head/Neck CTA (units ( unknown) date) (Signed) unknown) (unknown) (no (unknown) (unknown) Hgb (units (unkno wn) date) (13.5-17.5) g/dL unknown) (unknown) (no (unknown) (unknown) Hgb (13.5-17.5) (units (unknown) date) g/dL unknown) (unknown) (no (unknown) (unknown) Hgb 15.6 (units (unkn own) date) (13.5-17.5) g/dL unknown) (unknown) (no (unknown) (unknown) History of Present (units (unknown) date) Illness unknown) (unknown) (no (unknown) (unknown) History of aortic (units (unknown) date) dissection unknown) () (unknown) (no (unknown) (unknown) History of (units (unk nown) date) arthroplasty of unknown) right knee (unknown) (no (unknown) (unknown) 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 (unknown) (no (unknown) (unknown) History of cardiac (units (unknown) date) cath () unknown) (unknown) (no (unknown) (unknown) History of (units (unk nown) date) esophageal surgery unknown) (unknown) (no (unknown) (unknown) History of (units (unk nown) date) incision and unknown) drainage () (unknown) (no (unknown) (unknown) History of prior (units (unknown) date) ablation treatment unknown) () (unknown) (no (unknown) (unknown) History of surgery (units (unknown) date) unknown) (unknown) (no (unknown) (unknown) Vidal,Ronni (units (unk nown) date) unknown) (unknown) (no (unknown) (unknown) Hx of (units (unkno wn) date) cholecystectomy unknown) (unknown) (no (unknown) (unknown) Hx of hernia (units (u nknown) date) repair unknown) (unknown) (no (unknown) (unknown) Hx of sinus (units (un known) date) surgery unknown) (unknown) (no (unknown) (unknown) Hypertension (units (u nknown) date) unknown) (unknown) (no (unknown) (unknown) IMPRESSION:? (units (u nknown) date) unknown) (unknown) (no (unknown) (unknown) INDICATIONS:? (units ( unknown) date) trauma unknown) (unknown) (no (unknown) (unknown) INHIBITOR] (units (unk nown) date) unknown) (unknown) (no (unknown) (unknown) Image quality:? (units (unknown) date) Excellent.? unknown) (unknown) (no (unknown) (unknown) Image quality:? (units (unknown) date) There is motion unknown) artifact limiting evaluation.? (unknown) (no (unknown) (unknown) Imaging Data (units (u nknown) date) unknown) (unknown) (no (unknown) (unknown) Inhibitor (units (unkn own) date) MUSCLES unknown) (unknown) (no (unknown) (unknown) Initial Vital (units ( unknown) date) Signs unknown) (unknown) (no (unknown) (unknown) Initial Vital (units ( unknown) date) Signs: unknown) (unknown) (no (unknown) (unknown) Ischemic (units (unkno wn) date) cardiomyopathy unknown) (unknown) (no (unknown) (unknown) Theodore,Exmore (units (unknown) date) unknown) (unknown) (no (unknown) (unknown) Ashley,Bharath (units ( unknown) date) unknown) (unknown) (no (unknown) (unknown) Knee X-Ray (units (unk nown) date) (Signed) unknown) (unknown) (no (unknown) (unknown) Lab Data (units (unkno wn) date) unknown) (unknown) (no (unknown) (unknown) Labs: (units (unkno wn) date) unknown) (unknown) (no (unknown) (unknown) Lactate (units (unkno wn) date) (0.7-2.1) mmol/L unknown) (unknown) (no (unknown) (unknown) Lactate 2.3 H (units (unknown) date) (0.7-2.1) mmol/L unknown) (unknown) (no (unknown) (unknown) Lactate 1.5 (units ( unknown) date) (0.7-2.1) mmol/L unknown) (unknown) (no (unknown) (unknown) Lactate (Lactic (units (unknown) date) Acid) Stat unknown) (unknown) (no (unknown) (unknown) Satish Jarrett (units (unkno wn) date) unknown) (unknown) (no (unknown) (unknown) Loc: ED (units (unkno wn) date) unknown) (unknown) (no (unknown) (unknown) Lumbar Spine MRI (units (unknown) date) (Signed) unknown) (unknown) (no (unknown) (unknown) Lymph # (Auto) (units (unknown) date) (9794-0543) /uL unknown) (unknown) (no (unknown) (unknown) Lymph # (Auto) (units (unknown) date) (8878-7395) /uL unknown) (unknown) (no (unknown) (unknown) Lymph # (Auto) (units (unknown) date) 1700 (5886-0741) unknown) /uL (unknown) (no (unknown) (unknown) Lymph % (Auto) (units (unknown) date) (25-40) % unknown) (unknown) (no (unknown) (unknown) Lymph % (Auto) (units (unknown) date) (25-40) % unknown) (unknown) (no (unknown) (unknown) Lymph % (Auto) (units (unknown) date) 23.0 L (25-40) unknown) % (unknown) (no (unknown) (unknown) MCH (26-34) (units (unknown) date) PG unknown) (unknown) (no (unknown) (unknown) MCH (26-34) PG (units (unknown) date) unknown) (unknown) (no (unknown) (unknown) MCH 31.7 (units (unkn own) date) (26-34) PG unknown) (unknown) (no (unknown) (unknown) MCHC (30-36) (units (unknown) date) % unknown) (unknown) (no (unknown) (unknown) MCHC (30-36) % (units (unknown) date) unknown) (unknown) (no (unknown) (unknown) MCHC 34.0 (units (unk nown) date) (30-36) % unknown) (unknown) (no (unknown) (unknown) MCV (80-100) (units (unknown) date) fL unknown) (unknown) (no (unknown) (unknown) MCV (80-100) (units (unknown) date) fL unknown) (unknown) (no (unknown) (unknown) MCV 93.3 (units (unkn own) date) (80-100) fL unknown) (unknown) (no (unknown) (unknown) MDM - Fall (units (unk nown) date) unknown) (unknown) (no (unknown) (unknown) MR#: [id number] (units (unknown) date) unknown) (unknown) (no (unknown) (unknown) MUSCULOSKELETAL: (units (unknown) date) See HPI unknown) (unknown) (no (unknown) (unknown) Medical History (units (unknown) date) (Reviewed 12/08/21 unknown) @ 01:57 by Jung Dejesus DO) (unknown) (no (unknown) (unknown) Cheryl Husain (units (unknown) date) unknown) (unknown) (no (unknown) (unknown) Mode of arrival: (units (unknown) date) EMS unknown) (unknown) (no (unknown) (unknown) [place] # (Auto) (units ( unknown) date) (0-900) /uL unknown) (unknown) (no (unknown) (unknown) [place] # (Auto) (units ( unknown) date) (0-900) /uL unknown) (unknown) (no (unknown) (unknown) [place] # (Auto) 700 (units (unknown) date) (0-900) /uL unknown) (unknown) (no (unknown) (unknown) [place] % (Auto) (units ( unknown) date) (3-14) % unknown) (unknown) (no (unknown) (unknown) [place] % (Auto) (units ( unknown) date) (3-14) % unknown) (unknown) (no (unknown) (unknown) [place] % (Auto) 9.5 (units (unknown) date) (3-14) % unknown) (unknown) (no (unknown) (unknown) Mother (units (unknown) date) Stroke unknown) (unknown) (no (unknown) (unknown) NECK: Trachea (units ( unknown) date) midline. Non tender unknown) (unknown) (no (unknown) (unknown) NEURO: Cranial (units (unknown) date) nerves 2-12 grossly unknown) intact (unknown) (no (unknown) (unknown) NEUROLOGIC: Denies (units (unknown) date) weakness, headache, unknown) numbness, change in speech, confusion, (unknown) (no (unknown) (unknown) NOW ONE (units (unkno wn) date) unknown) (unknown) (no (unknown) (unknown) Narcotic (units (unkno wn) date) dependence unknown) (unknown) (no (unknown) (unknown) Narrative (units (unkn own) date) unknown) (unknown) (no (unknown) (unknown) Narrative: (units (unk nown) date) unknown) (unknown) (no (unknown) (unknown) Neck pain, chronic (units (unknown) date) unknown) (unknown) (no (unknown) (unknown) Neut # (Auto) (units ( unknown) date) (0669-1717) /uL unknown) (unknown) (no (unknown) (unknown) Neut # (Auto) (units ( unknown) date) (6657-0165) /uL unknown) (unknown) (no (unknown) (unknown) Neut # (Auto) (units ( unknown) date) 4800 (3934-9555) unknown) /uL (unknown) (no (unknown) (unknown) Neut % (Auto) (units ( unknown) date) (50-75) % unknown) (unknown) (no (unknown) (unknown) Neut % (Auto) (units ( unknown) date) (50-75) % unknown) (unknown) (no (unknown) (unknown) Neut % (Auto) (units ( unknown) date) 64.7 (50-75) % unknown) (unknown) (no (unknown) (unknown) No Action (units (unkn own) date) unknown) (unknown) (no (unknown) (unknown) No scleral (units (unk nown) date) icterus. No unknown) injection or drainage. (unknown) (no (unknown) (unknown) Noncontrast 3 mm (units (unknown) date) thick sections unknown) acquired from the skull base to the T4 level.? (unknown) (no (unknown) (unknown) Noncontrast 4.5 mm (units (unknown) date) thick angled axial unknown) sections acquired from the foramen magnum (unknown) (no (unknown) (unknown) Ondansetron HCl (units (unknown) date) (Ondansetron 4 Mg/2 unknown) Ml Inj) 4 mg IV NOW ONE (unknown) (no (unknown) (unknown) Ordered: (units (unkno wn) date) unknown) (unknown) (no (unknown) (unknown) Ordering Provider: (units (unknown) date) Jung Dejesus D.O. unknown) (unknown) (no (unknown) (unknown) Orders (units (unkno wn) date) unknown) (unknown) (no (unknown) (unknown) PROCEDURE:? CT (units (unknown) date) CERVICAL SPINE WO unknown) CON (unknown) (no (unknown) (unknown) PROCEDURE:? CT (units (unknown) date) HEAD/BRAIN WO CON unknown) (unknown) (no (unknown) (unknown) PSYCHIATRIC: No (units (unknown) date) concerning unknown) psychosocial issues. (unknown) (no (unknown) (unknown) Patient History (units (unknown) date) unknown) (unknown) (no (unknown) (unknown) Patient observed (units (unknown) date) for some time unknown) before labs added. He has continued to have a (unknown) (no (unknown) (unknown) Patient: (units (unkno wn) date) Dominic Viveros unknown) MR#: M (unknown) (no (unknown) (unknown) Patient: (units (unkno wn) date) Dominic Viveros unknown) (unknown) (no (unknown) (unknown) Maxim Valadez (units (un known) date) unknown) (unknown) (no (unknown) (unknown) Potassium (units (unkn own) date) (3.4-5.1) mmol/L unknown) (unknown) (no (unknown) (unknown) Potassium (units (unkn own) date) (3.4-5.1) mmol/L unknown) (unknown) (no (unknown) (unknown) Potassium 4.5 (units (unknown) date) (3.4-5.1) mmol/L unknown) (unknown) (no (unknown) (unknown) Prescriptions: (units (unknown) date) unknown) (unknown) (no (unknown) (unknown) Procedure: CT (units ( unknown) date) cervical spine wo unknown) con (unknown) (no (unknown) (unknown) Procedure: CT (units ( unknown) date) head/brain wo con unknown) (unknown) (no (unknown) (unknown) Prolactin (units (unkn own) date) (3.7-17.9) ng/mL unknown) (unknown) (no (unknown) (unknown) Prolactin (units (unkn own) date) (3.7-17.9) ng/mL unknown) (unknown) (no (unknown) (unknown) Prolactin 18.9 H (units (unknown) date) (3.7-17.9) ng/mL unknown) (unknown) (no (unknown) (unknown) Prolactin Stat (units (unknown) date) unknown) (unknown) (no (unknown) (unknown) Pulse Oximetry 92 (units (unknown) date) 12/07/21 20:23 unknown) (unknown) (no (unknown) (unknown) Pulse Oximetry 92 (units (unknown) date) unknown) (unknown) (no (unknown) (unknown) Pulse Rate 88 (units (unknown) date) 12/07/21 20:23 unknown) (unknown) (no (unknown) (unknown) Pulse Rate 88 (units ( unknown) date) unknown) (unknown) (no (unknown) (unknown) RDW (units (unkno wn) date) (11.6-14.8) % unknown) (unknown) (no (unknown) (unknown) RDW (11.6-14.8) (units (unknown) date) % unknown) (unknown) (no (unknown) (unknown) RDW 13.7 (units (unkn own) date) (11.6-14.8) % unknown) (unknown) (no (unknown) (unknown) RESPIRATORY: Clear (units (unknown) date) to auscultation. unknown) Breath sounds equal bilaterally. No wheezes, (unknown) (no (unknown) (unknown) RESPIRATORY: (units (u nknown) date) Denies dyspnea, unknown) cough, wheezing, hemoptysis, sputum. (unknown) (no (unknown) (unknown) Dominic Viveros (units (unknown) date) D??76??M?? unknown) 5 (unknown) (no (unknown) (unknown) Reevaluation #1: (units (unknown) date) unknown) (unknown) (no (unknown) (unknown) Reevaluation(s) (units (unknown) date) unknown) (unknown) (no (unknown) (unknown) Referrals: (units (unk nown) date) unknown) (unknown) (no (unknown) (unknown) Related Data (units (u nknown) date) unknown) (unknown) (no (unknown) (unknown) Respiratory Rate (units (unknown) date) 22 12/07/21 20:23 unknown) (unknown) (no (unknown) (unknown) Respiratory Rate (units (unknown) date) 22 unknown) (unknown) (no (unknown) (unknown) Result diagrams: (units (unknown) date) unknown) (unknown) (no (unknown) (unknown) Review of Systems (units (unknown) date) unknown) (unknown) (no (unknown) (unknown) Emeka Robertson (units (unknown) date) unknown) (unknown) (no (unknown) (unknown) Sudarshan Calderon (units (u nknown) date) unknown) (unknown) (no (unknown) (unknown) S/P CABG x 3 (units (u nknown) date) () unknown) (unknown) (no (unknown) (unknown) S/P cervical (units (u nknown) date) spinal fusion unknown) (unknown) (no (unknown) (unknown) S/P lumbar fusion (units (unknown) date) unknown) (unknown) (no (unknown) (unknown) SARS-CoV-2 (PCR) (units (unknown) date) (Negative) unknown) (unknown) (no (unknown) (unknown) SARS-CoV-2 (PCR) (units (unknown) date) (Negative) unknown) (unknown) (no (unknown) (unknown) SARS-CoV-2 (PCR) (units (unknown) date) Negative unknown) (Negative) (unknown) (no (unknown) (unknown) SKIN: Denies rash, (units (unknown) date) skin lesions, or unknown) other (unknown) (no (unknown) (unknown) SKIN: No rash or (units (unknown) date) erythema of visible unknown) areas (unknown) (no (unknown) (unknown) Sagittal (units (unkno wn) date) unknown) (unknown) (no (unknown) (unknown) Salicylate Stat (units (unknown) date) unknown) (unknown) (no (unknown) (unknown) Salicylates (units (un known) date) (<20) mg/dL unknown) (unknown) (no (unknown) (unknown) Salicylates (units (un known) date) (<20) mg/dL unknown) (unknown) (no (unknown) (unknown) Salicylates < (units (unknown) date) 1.0 (<20) mg/dL unknown) (unknown) (no (unknown) (unknown) Signed By: (units (unk nown) date) unknown) (unknown) (no (unknown) (unknown) Sinuses:? (units (unkn own) date) Visualized sinuses unknown) redemonstrate wall thickening and mucoperiosteal (unknown) (no (unknown) (unknown) Skull and face:? (units (unknown) date) Calvarium and unknown) visualized facial bones appear intact, without (unknown) (no (unknown) (unknown) Smoking Status: (units (unknown) date) Former smoker unknown) (unknown) (no (unknown) (unknown) Smoking Status: (units (unknown) date) Former smoker unknown) (unknown) (no (unknown) (unknown) Social History (units (unknown) date) (Reviewed 12/08/21 unknown) @ 01:57 by Jung Dejesus DO) (unknown) (no (unknown) (unknown) Sodium (units (unkno wn) date) (137-145) mmol/L unknown) (unknown) (no (unknown) (unknown) Sodium (units (unkno wn) date) (137-145) mmol/L unknown) (unknown) (no (unknown) (unknown) Sodium 140 (units (u nknown) date) (137-145) mmol/L unknown) (unknown) (no (unknown) (unknown) Sodium Chloride (units (unknown) date) (Normal Saline unknown) 0.9%) 1,000 mls @ 150 mls/hr IV CONT BLOSSOM (unknown) (no (unknown) (unknown) Soft tissues:? (units (unknown) date) Prevertebral soft unknown) tissues are normal in thickness.? No (unknown) (no (unknown) (unknown) Source: patient, (units (unknown) date) family and EMS unknown) (unknown) (no (unknown) (unknown) Stated Complaint: (units (unknown) date) Back Pain unknown) (unknown) (no (unknown) (unknown) Ixuxfuw-TKC-PsN (units (unknown) date) Reductase AdvReac unknown) Mild WEAK Verified 11/28/21 15:33 (unknown) (no (unknown) (unknown) Substance Use (units ( unknown) date) Type: does not use unknown) (unknown) (no (unknown) (unknown) Sulfa (Sulfonamide (units (unknown) date) Allergy Mild RASH unknown) Verified 11/28/21 15:33 (unknown) (no (unknown) (unknown) Surgical History (units (unknown) date) (Reviewed 12/08/21 unknown) @ 01:57 by Jung Dejesus DO) (unknown) (no (unknown) (unknown) Andre Spear (units ( unknown) date) unknown) (unknown) (no (unknown) (unknown) TECHNIQUE:? (units (un known) date) unknown) (unknown) (no (unknown) (unknown) TSH (units (unkno wn) date) (0.47-4.68) uIU/mL unknown) (unknown) (no (unknown) (unknown) TSH (0.47-4.68) (units (unknown) date) uIU/mL unknown) (unknown) (no (unknown) (unknown) TSH 2.07 (units (unkn own) date) (0.47-4.68) uIU/mL unknown) (unknown) (no (unknown) (unknown) Telemetry Strips (units (unknown) date) unknown) (unknown) (no (unknown) (unknown) Temperature 97.4 (units (unknown) date) F L 12/07/21 20:23 unknown) (unknown) (no (unknown) (unknown) Temperature 97.4 F (units (unknown) date) L unknown) (unknown) (no (unknown) (unknown) There is a small (units (unknown) date) right choroidal unknown) fissure cyst redemonstrated.? (unknown) (no (unknown) (unknown) There is mild (units ( unknown) date) cerebral volume unknown) loss, with resultant ventricular and sulcal (unknown) (no (unknown) (unknown) Thyroid (units (unkno wn) date) Stimulating Hormone unknown) Stat (unknown) (no (unknown) (unknown) Tibia/Fibula X-Ray (units (unknown) date) (Signed) unknown) (unknown) (no (unknown) (unknown) Time Seen by (units (u nknown) date) Provider: 12/07/21 unknown) 20:22 (unknown) (no (unknown) (unknown) Total Bilirubin (units (unknown) date) (0.2-1.3) mg/dL unknown) (unknown) (no (unknown) (unknown) Total Bilirubin (units (unknown) date) (0.2-1.3) mg/dL unknown) (unknown) (no (unknown) (unknown) Total Bilirubin (units (unknown) date) 0.9 (0.2-1.3) unknown) mg/dL (unknown) (no (unknown) (unknown) Total Protein (units ( unknown) date) (6.3-8.2) g/dL unknown) (unknown) (no (unknown) (unknown) Total Protein (units ( unknown) date) (6.3-8.2) g/dL unknown) (unknown) (no (unknown) (unknown) Total Protein (units ( unknown) date) 7.0 (6.3-8.2) unknown) g/dL (unknown) (no (unknown) (unknown) U Benzodiazepines (units (unknown) date) Scrn (Negative) unknown) (unknown) (no (unknown) (unknown) U Benzodiazepines (units (unknown) date) Scrn Positive H unknown) (Negative) (unknown) (no (unknown) (unknown) U Marijuana (THC) (units (unknown) date) Screen unknown) (Negative) (unknown) (no (unknown) (unknown) U Marijuana (THC) (units (unknown) date) Screen Negative unknown) (Negative) (unknown) (no (unknown) (unknown) U Methamphetamines (units (unknown) date) Scrn (Negative) unknown) (unknown) (no (unknown) (unknown) U Methamphetamines (units (unknown) date) Scrn Negative unknown) (Negative) (unknown) (no (unknown) (unknown) U Opiates 300ng/mL (units (unknown) date) cut (Negative) unknown) (unknown) (no (unknown) (unknown) U Opiates 300ng/mL (units (unknown) date) cut Positive H unknown) (Negative) (unknown) (no (unknown) (unknown) U Tricyclic (units (un known) date) Antidepress unknown) (Negative) (unknown) (no (unknown) (unknown) U Tricyclic (units (un known) date) Antidepress unknown) Negative (Negative) (unknown) (no (unknown) (unknown) Ur Amphetamines (units (unknown) date) Screen unknown) (Negative) (unknown) (no (unknown) (unknown) Ur Amphetamines (units (unknown) date) Screen Negative unknown) (Negative) (unknown) (no (unknown) (unknown) Ur Barbiturates (units (unknown) date) Screen unknown) (Negative) (unknown) (no (unknown) (unknown) Ur Barbiturates (units (unknown) date) Screen Negative unknown) (Negative) (unknown) (no (unknown) (unknown) Ur Culture (units (unk nown) date) Indicated? unknown) (unknown) (no (unknown) (unknown) Ur Culture (units (unk nown) date) Indicated? unknown) (unknown) (no (unknown) (unknown) Ur Culture (units (unk nown) date) Indicated? Cult unknown) not indicated (unknown) (no (unknown) (unknown) Ur Leukocyte (units (u nknown) date) Esterase unknown) (NEGATIVE) (unknown) (no (unknown) (unknown) Ur Leukocyte (units (u nknown) date) Esterase unknown) (NEGATIVE) (unknown) (no (unknown) (unknown) Ur Leukocyte (units (u nknown) date) Esterase unknown) Negative (NEGATIVE) (unknown) (no (unknown) (unknown) Ur MDMA Scrn (units (u nknown) date) (Ecstasy) unknown) (Negative) (unknown) (no (unknown) (unknown) Ur MDMA Scrn (units (u nknown) date) (Ecstasy) Negative unknown) (Negative) (unknown) (no (unknown) (unknown) Ur Oxycodone (units (u nknown) date) Screen unknown) (Negative) (unknown) (no (unknown) (unknown) Ur Oxycodone (units (u nknown) date) Screen Negative unknown) (Negative) (unknown) (no (unknown) (unknown) Ur Phencyclidine (units (unknown) date) Scrn (Negative) unknown) (unknown) (no (unknown) (unknown) Ur Phencyclidine (units (unknown) date) Scrn Negative unknown) (Negative) (unknown) (no (unknown) (unknown) Ur Specific (units (un known) date) Falcon unknown) (1.000-1.035) (unknown) (no (unknown) (unknown) Ur Specific (units (un known) date) Falcon unknown) (1.000-1.035) (unknown) (no (unknown) (unknown) Ur Specific (units (un known) date) Falcon 1.020 unknown) (1.000-1.035) (unknown) (no (unknown) (unknown) Ur Squamous Epith (units (unknown) date) Cells (0-5/HPF) unknown) (unknown) (no (unknown) (unknown) Ur Squamous Epith (units (unknown) date) Cells (0-5/HPF) unknown) (unknown) (no (unknown) (unknown) Ur Squamous Epith (units (unknown) date) Cells 0-1 /hpf unknown) (0-5/HPF) (unknown) (no (unknown) (unknown) Urinalysis and (units (unknown) date) Microscopic Stat unknown) (unknown) (no (unknown) (unknown) Urine Appearance (units (unknown) date) unknown) (unknown) (no (unknown) (unknown) Urine Appearance (units (unknown) date) unknown) (unknown) (no (unknown) (unknown) Urine Appearance (units (unknown) date) Clear unknown) (unknown) (no (unknown) (unknown) Urine Bacteria (units (unknown) date) (None) unknown) (unknown) (no (unknown) (unknown) Urine Bacteria (units (unknown) date) (None) unknown) (unknown) (no (unknown) (unknown) Urine Bacteria (units (unknown) date) None seen (None) unknown) (unknown) (no (unknown) (unknown) Urine Bilirubin (units (unknown) date) (NEGATIVE) unknown) (unknown) (no (unknown) (unknown) Urine Bilirubin (units (unknown) date) (NEGATIVE) unknown) (unknown) (no (unknown) (unknown) Urine Bilirubin (units (unknown) date) Negative unknown) (NEGATIVE) (unknown) (no (unknown) (unknown) Urine Cocaine (units ( unknown) date) Screen unknown) (Negative) (unknown) (no (unknown) (unknown) Urine Cocaine (units ( unknown) date) Screen Negative unknown) (Negative) (unknown) (no (unknown) (unknown) Urine Color (units (un known) date) unknown) (unknown) (no (unknown) (unknown) Urine Color (units (un known) date) unknown) (unknown) (no (unknown) (unknown) Urine Color (units (un known) date) Yellow unknown) (unknown) (no (unknown) (unknown) Urine Drug Screen, (units (unknown) date) Rapid Stat unknown) (unknown) (no (unknown) (unknown) Urine Glucose (UA) (units (unknown) date) (Negative) unknown) g/dL (unknown) (no (unknown) (unknown) Urine Glucose (UA) (units (unknown) date) (Negative) g/dL unknown) (unknown) (no (unknown) (unknown) Urine Glucose (UA) (units (unknown) date) Negative unknown) (Negative) g/dL (unknown) (no (unknown) (unknown) Urine Ketones (units ( unknown) date) (NEGATIVE) unknown) (unknown) (no (unknown) (unknown) Urine Ketones (units ( unknown) date) (NEGATIVE) unknown) (unknown) (no (unknown) (unknown) Urine Ketones (units ( unknown) date) Trace H (NEGATIVE) unknown) (unknown) (no (unknown) (unknown) Urine Methadone (units (unknown) date) Screen unknown) (Negative) (unknown) (no (unknown) (unknown) Urine Methadone (units (unknown) date) Screen Negative unknown) (Negative) (unknown) (no (unknown) (unknown) Urine Nitrate (units ( unknown) date) (Negative) unknown) (unknown) (no (unknown) (unknown) Urine Nitrate (units ( unknown) date) (Negative) unknown) (unknown) (no (unknown) (unknown) Urine Nitrate (units ( unknown) date) Negative unknown) (Negative) (unknown) (no (unknown) (unknown) Urine Occult Blood (units (unknown) date) (Negative) unknown) (unknown) (no (unknown) (unknown) Urine Occult Blood (units (unknown) date) (Negative) unknown) (unknown) (no (unknown) (unknown) Urine Occult Blood (units (unknown) date) Negative unknown) (Negative) (unknown) (no (unknown) (unknown) Urine Protein (units ( unknown) date) (Negative) unknown) (unknown) (no (unknown) (unknown) Urine Protein (units ( unknown) date) (Negative) unknown) (unknown) (no (unknown) (unknown) Urine Protein (units ( unknown) date) Negative unknown) (Negative) (unknown) (no (unknown) (unknown) Urine RBC (units (unkn own) date) (0-5/HPF) unknown) (unknown) (no (unknown) (unknown) Urine RBC (units (unkn own) date) (0-5/HPF) unknown) (unknown) (no (unknown) (unknown) Urine RBC None (units (unknown) date) seen (0-5/HPF) unknown) (unknown) (no (unknown) (unknown) Urine Urobilinogen (units (unknown) date) (0.2) E.U./dL unknown) (unknown) (no (unknown) (unknown) Urine Urobilinogen (units (unknown) date) (0.2) E.U./dL unknown) (unknown) (no (unknown) (unknown) Urine Urobilinogen (units (unknown) date) 0.2 (0.2) unknown) E.U./dL (unknown) (no (unknown) (unknown) Urine WBC (units (unkn own) date) (0-5/HPF) unknown) (unknown) (no (unknown) (unknown) Urine WBC (units (unkn own) date) (0-5/HPF) unknown) (unknown) (no (unknown) (unknown) Urine WBC None (units (unknown) date) seen (0-5/HPF) unknown) (unknown) (no (unknown) (unknown) Urine pH (units (unkno wn) date) (4.5-8.0) unknown) (unknown) (no (unknown) (unknown) Urine pH (units (unkno wn) date) (4.5-8.0) unknown) (unknown) (no (unknown) (unknown) Urine pH 5.0 (units (unknown) date) (4.5-8.0) unknown) (unknown) (no (unknown) (unknown) Vascular (units (unkno wn) date) Ultrasound (Signed) unknown) (unknown) (no (unknown) (unknown) Ventricular (units (un known) date) bigeminy unknown) (unknown) (no (unknown) (unknown) Vital Signs (units (un known) date) unknown) (unknown) (no (unknown) (unknown) Vital signs: (units (u nknown) date) unknown) (unknown) (no (unknown) (unknown) Charles,Lexx (units (u nknown) date) unknown) (unknown) (no (unknown) (unknown) [Embedded Image (units (unknown) date) Not Available] unknown) (unknown) (no (unknown) (unknown) [[id number] (units (unknown) date) REDUCTASE unknown) (unknown) (no (unknown) (unknown) [SULFA (units (unkno wn) date) (SULFONAMIDE unknown) (unknown) (no (unknown) (unknown) acetaminophen 300 (units (unknown) date) mg-codeine 30 mg 1 unknown) tab PO Q6HR PRN 10/08/21 10/08/21 (unknown) (no (unknown) (unknown) acetaminophen 325 (units (unknown) date) mg tablet 650 mg PO unknown) Q6H PRN #60 tab 11/06/20 (unknown) (no (unknown) (unknown) albuterol sulfate (units (unknown) date) 1.25 mg/3 mL 2.5 mg unknown) (6 mL) INHALATION QID #90 ml 11/28/21 (unknown) (no (unknown) (unknown) alcohol intake (units (unknown) date) frequency: unknown) holidays/special occasions only (unknown) (no (unknown) (unknown) alcohol intake: (units (unknown) date) current unknown) (unknown) (no (unknown) (unknown) and coronal (units (un known) date) reformats were then unknown) constructed.? For radiation dose reduction, the (unknown) (no (unknown) (unknown) and shape.? (units (un known) date) unknown) (unknown) (no (unknown) (unknown) appears (units (unkno wn) date) preserved.? There unknown) is intracranial internal carotid artery (unknown) (no (unknown) (unknown) approximately 0.2 (units (unknown) date) cm. unknown) (unknown) (no (unknown) (unknown) approximately 0.4 (units (unknown) date) cm and minimal unknown) anterolisthesis at C3-C4 measuring (unknown) (no (unknown) (unknown) arthropathy (units (un known) date) throughout the unknown) cervical spine.? Visualized superior ribs are (unknown) (no (unknown) (unknown) atherosclerosis.? (units (unknown) date) unknown) (unknown) (no (unknown) (unknown) benzonatate 100 mg (units (unknown) date) capsule 100 mg PO unknown) TID PRN #14 cap 03/05/21 (unknown) (no (unknown) (unknown) buprenorphine (units ( unknown) date) [BUPRENORPHINE] unknown) AdvReac Mild NAUSEA, Verified 11/28/21 15:33 (unknown) (no (unknown) (unknown) buprenorphine, (units (unknown) date) hyoscyamine, unknown) [id number]-WFQ-GjG Reductase Inhibitor, diazepam (unknown) (no (unknown) (unknown) cefdinir 300 mg (units (unknown) date) capsule 300 mg PO unknown) BID #20 cap 10/09/21 (unknown) (no (unknown) (unknown) celecoxib (units (unkn own) date) [CELECOXIB] Allergy unknown) Mild SWELLING Verified 11/28/21 15:33 (unknown) (no (unknown) (unknown) cetirizine 10 mg (units (unknown) date) capsule (Zyrtec) 10 unknown) mg PO DAILY 05/22/19 10/08/21 (unknown) (no (unknown) (unknown) chronic back pain, (units (unknown) date) ataxia, AFib, COPD unknown) presents for evaluation of a witnessed (unknown) (no (unknown) (unknown) chronic sinusitis. (units (unknown) date) unknown) (unknown) (no (unknown) (unknown) constipation, (units ( unknown) date) melena. unknown) (unknown) (no (unknown) (unknown) consumed a large (units (unknown) date) amount of alcohol unknown) tonight in addition to many other medications (unknown) (no (unknown) (unknown) contusion, (units (unk nown) date) laceration, unknown) hematoma or evidence of depressed skull fracture (unknown) (no (unknown) (unknown) degeneration also (units (unknown) date) demonstrated at unknown) C2-C3 and C3-C4.? There is multilevel moderate (unknown) (no (unknown) (unknown) degenerative disc (units (unknown) date) disease within the unknown) visualized upper thoracic spine.? Mild disc (unknown) (no (unknown) (unknown) diazepam [From (units (unknown) date) Valium] AdvReac unknown) Confusion Verified 11/28/21 15:33 (unknown) (no (unknown) (unknown) diclofenac sodium (units (unknown) date) 1 % topical gel 2 g unknown) TOPICAL QID #100 g 11/19/21 (unknown) (no (unknown) (unknown) difficult time (units ( unknown) date) ambulating and is unknown) unsafe to discharge at this time. His has (unknown) (no (unknown) (unknown) ferrous sulfate (units (unknown) date) 325 mg (65 mg 325 unknown) mg PO DAILY 10/19/19 10/08/21 (unknown) (no (unknown) (unknown) fluticasone (units (un known) date) propionate 50 1 unknown) spray INTRANASAL DAILY PRN #0 11/02/17 10/08/21 (unknown) (no (unknown) (unknown) following (units (unkn own) date) unknown) (unknown) (no (unknown) (unknown) furosemide 40 mg (units (unknown) date) tablet (Lasix) 40 unknown) mg PO DAILY 10/08/21 10/08/21 (unknown) (no (unknown) (unknown) glipizide 2.5 mg (units (unknown) date) tablet, extended unknown) 2.5 mg PO DAILY 10/08/21 10/08/21 (unknown) (no (unknown) (unknown) ground level fall. (units (unknown) date) He stumbled and unknown) fell forward, striking his nose. There was (unknown) (no (unknown) (unknown) hand (units (unkno wn) date) unknown) (unknown) (no (unknown) (unknown) hematomas.? No (units (unknown) date) apical unknown) pneumothoraces.? (unknown) (no (unknown) (unknown) household members: (units (unknown) date) spouse unknown) (unknown) (no (unknown) (unknown) hyoscyamine (units (un known) date) [HYOSCYAMINE] unknown) AdvReac Mild LEG Verified 11/28/21 15:33 (unknown) (no (unknown) (unknown) intact.? (units (unkno wn) date) unknown) (unknown) (no (unknown) (unknown) iron) (units (unkno wn) date) tablet,delayed unknown) release (unknown) (no (unknown) (unknown) latex [LATEX] (units ( unknown) date) Allergy Mild RASH unknown) Verified 11/28/21 15:33 (unknown) (no (unknown) (unknown) lesions.? (units (unkn own) date) unknown) (unknown) (no (unknown) (unknown) levalbuterol HCl (units (unknown) date) 1.25 mg/3 mL 3 ml unknown) INHALATION Q6H PRN 10/16/18 10/08/21 (unknown) (no (unknown) (unknown) levalbuterol (units (u nknown) date) tartrate 45 1 puff unknown) INHALATION Q4-6H PRN #15 06/22/18 (unknown) (no (unknown) (unknown) mastoid air cells (units (unknown) date) are clear. unknown) (unknown) (no (unknown) (unknown) mcg/actuation (units ( unknown) date) aerosol inhaler unknown) gram (unknown) (no (unknown) (unknown) mcg/actuation (units ( unknown) date) nasal unknown) (unknown) (no (unknown) (unknown) measuring (units (unkn own) date) unknown) (unknown) (no (unknown) (unknown) meclizine 25 mg (units (unknown) date) tablet 25 mg PO QID unknown) PRN #30 tab 10/09/21 (unknown) (no (unknown) (unknown) methocarbamol 500 (units (unknown) date) mg tablet 500 mg PO unknown) Q8H PRN #14 tab 11/19/21 (unknown) (no (unknown) (unknown) metoprolol (units (unk nown) date) tartrate 100 mg unknown) tablet 100 mg PO BID 10/16/18 10/08/21 (unknown) (no (unknown) (unknown) mg tablet (units (unkn own) date) (Percocet) unknown) (unknown) (no (unknown) (unknown) mild distress. (units (unknown) date) GCS 15, smells of unknown) alcohol and slurring his words (unknown) (no (unknown) (unknown) moderate (units (unkno wn) date) unknown) (unknown) (no (unknown) (unknown) multiple levels as (units (unknown) date) described. unknown) (unknown) (no (unknown) (unknown) multivitamin (units (u nknown) date) (Multiple Vitamins) unknown) 1 tab PO DAILY #0 12/20/16 10/08/21 (unknown) (no (unknown) (unknown) no loss of (units (unk nown) date) consciousness and unknown) he has had no nausea or vomiting. He denies any (unknown) (no (unknown) (unknown) other injuries (units (unknown) date) such as neck, back unknown) or extremities. His states that he (unknown) (no (unknown) (unknown) oxycodone 5 mg (units (unknown) date) tablet 10 mg PO unknown) Q4-5H PRN #60 tab 11/06/20 (unknown) (no (unknown) (unknown) oxycodone-acetamin (units (unknown) date) ophen 5 mg-325 1 unknown) tab PO Q8H PRN #10 tab 11/19/21 (unknown) (no (unknown) (unknown) oxycodone-acetamin (units (unknown) date) ophen 5 mg-325 1 unknown) tab PO TID PRN #10 tab 11/19/21 (unknown) (no (unknown) (unknown) paravertebral (units ( unknown) date) unknown) (unknown) (no (unknown) (unknown) patient (units (unkno wn) date) unknown) (unknown) (no (unknown) (unknown) prednisone 20 mg (units (unknown) date) tablet 20 mg PO unknown) DAILY #32 tab 11/28/21 (unknown) (no (unknown) (unknown) prednisone 50 mg (units (unknown) date) tablet 50 mg PO unknown) DAILY #5 tab 11/19/21 (unknown) (no (unknown) (unknown) prominence.? (units (u nknown) date) unknown) (unknown) (no (unknown) (unknown) release 24 hr (units ( unknown) date) (Glucotrol XL) unknown) (unknown) (no (unknown) (unknown) seizures, (units (unkn own) date) incoordination. unknown) (unknown) (no (unknown) (unknown) sequelae of (units (un known) date) unknown) (unknown) (no (unknown) (unknown) sinusitis.? The (units (unknown) date) unknown) (unknown) (no (unknown) (unknown) size.? (units (unkno wn) date) unknown) (unknown) (no (unknown) (unknown) solution for (units (u nknown) date) nebulization unknown) (unknown) (no (unknown) (unknown) solution for (units (u nknown) date) nebulization unknown) (unknown) (no (unknown) (unknown) spray,suspension (units (unknown) date) unknown) (unknown) (no (unknown) (unknown) study.? There are (units (unknown) date) postsurgical unknown) changes also redemonstrated status post prior (unknown) (no (unknown) (unknown) substance use (units ( unknown) date) type: does not use unknown) (unknown) (no (unknown) (unknown) suspicious (units (unk nown) date) unknown) (unknown) (no (unknown) (unknown) tablet (units (unkno wn) date) unknown) (unknown) (no (unknown) (unknown) that he would (units ( unknown) date) routinely take. He unknown) is activated as a modified trauma. (unknown) (no (unknown) (unknown) the prior (units (unkn own) date) unknown) (unknown) (no (unknown) (unknown) thickening (units (unk nown) date) unknown) (unknown) (no (unknown) (unknown) to the (units (unkno wn) date) unknown) (unknown) (no (unknown) (unknown) trazodone 100 mg (units (unknown) date) tablet 400 tab PO unknown) BEDTIME 12/09/17 10/08/21 (unknown) (no (unknown) (unknown) varenicline (units (un known) date) [VARENICLINE] unknown) AdvReac Severe Paranoia Verified 11/28/21 15:33 (unknown) (no (unknown) (unknown) vertex, with (units (u nknown) date) coronal and unknown) sagittal reformats.? For radiation dose reduction, the (unknown) (no (unknown) (unknown) was used:? (units (unk nown) date) automated exposure unknown) control, adjustment of mA and/or kV according to (unknown) (no (unknown) (unknown) within the (units (unk nown) date) visualized left unknown) maxillary sinus suggesting sequelae of chronic (unknown) (no (unknown) (unknown) without erythema, (units (unknown) date) tonsillar unknown) hypertrophy or exudate. Airway patent. Result panel 34 (unknown) (no (unknown) (unknown) (no value) (units (unk nown) date) unknown) (unknown) (no (unknown) (unknown) [address] [place] [address] (units (unknown) date) unknown) (unknown) (no (unknown) (unknown) [place], [place] (units ( unknown) date) [id number] unknown) (unknown) (no (unknown) (unknown) CT Scan Report (units (unknown) date) unknown) (unknown) (no (unknown) (unknown) [facility] (units (unknown) date) unknown) (unknown) (no (unknown) (unknown) Signed (units (unkno wn) date) unknown) (unknown) (no (unknown) (unknown) (no value) (units (unk nown) date) unknown) (unknown) (no (unknown) (unknown) 12/08/21 (units (unkno wn) date) unknown) (unknown) (no (unknown) (unknown) Approved by: (units (u nknown) date) aKt Raphael unknown) MD Jayna, PhD on 12/08/2021 at 7:14 (unknown) (no (unknown) (unknown) Bones: L4-S1 (units ( unknown) date) TLIF. Orthopedic unknown) hardware is intact. There is trace, (unknown) (no (unknown) (unknown) COMPARISON: (units (un known) date) None. unknown) (unknown) (no (unknown) (unknown) Dictated by: (units (u nknown) date) Kat Raphael unknown) MD Jayna, PhD on 12/08/2021 at 7:11 (unknown) (no (unknown) (unknown) FINDINGS: (units (unkn own) date) unknown) (unknown) (no (unknown) (unknown) IMPRESSION: No (units (unknown) date) fracture. No acute unknown) osseous lesion. If symptoms and/or clinical (unknown) (no (unknown) (unknown) INDICATIONS: (units (u nknown) date) fall with new pain unknown) (unknown) (no (unknown) (unknown) Image quality: (units (unknown) date) Excellent. unknown) (unknown) (no (unknown) (unknown) Noncontrast 3 mm (units (unknown) date) thick sections unknown) acquired from the T12 level to the sacrum. (unknown) (no (unknown) (unknown) Soft tissues: No (units (unknown) date) retroperitoneal unknown) masses or hematomas. Visualized aorta is (unknown) (no (unknown) (unknown) TECHNIQUE: (units (unk nown) date) unknown) (unknown) (no (unknown) (unknown) blastic bony (units (u nknown) date) lesions. Spine unknown) degenerative disc disease and facet arthropathy. No (unknown) (no (unknown) (unknown) caliber. (units (unkno wn) date) Scattered unknown) diverticuli noted in the visualized colon. (unknown) (no (unknown) (unknown) coronal reformats (units (unknown) date) were constructed. unknown) For radiation dose reduction, the (unknown) (no (unknown) (unknown) defects. (units (unkno wn) date) unknown) (unknown) (no (unknown) (unknown) for pathology (units ( unknown) date) persists, unknown) evaluation with MRI should be considered for further (unknown) (no (unknown) (unknown) lumbar spine. No (units (unknown) date) acute vertebral unknown) body compression fractures. No suspicious (unknown) (no (unknown) (unknown) millimeters of (units (unknown) date) L1-L2 unknown) anterolisthesis. There is mild convex right curvature of (unknown) (no (unknown) (unknown) used: automated (units (unknown) date) exposure control. unknown) (unknown) (no (unknown) (unknown) Accession Number: (units (unknown) date) [id number] unknown) (unknown) (no (unknown) (unknown) Age/Sex: 76 / M (units (unknown) date) Date of Service: unknown) (unknown) (no (unknown) (unknown) : 1945 (units (unknown) date) Acct:[id number] unknown) (unknown) (no (unknown) (unknown) Loc: ED (units (unkno wn) date) unknown) (unknown) (no (unknown) (unknown) [id number] (units (unk nown) date) unknown) (unknown) (no (unknown) (unknown) Ordering (units (unkno wn) date) Provider: unknown) Jung Dejesus D.O. (unknown) (no (unknown) (unknown) PROCEDURE: CT (units (unknown) date) LUMBAR SPINE WO unknown) CON (unknown) (no (unknown) (unknown) Patient: (units (unkno wn) date) Dominic Viveros unknown) MR#: (unknown) (no (unknown) (unknown) Procedure: CT (units ( unknown) date) lumbar spine wo unknown) con (unknown) (no (unknown) (unknown) Sagittal and (units (u nknown) date) unknown) (unknown) (no (unknown) (unknown) approximately 2 (units (unknown) date) unknown) (unknown) (no (unknown) (unknown) assessment. (units (un known) date) unknown) (unknown) (no (unknown) (unknown) following was (units ( unknown) date) unknown) (unknown) (no (unknown) (unknown) lytic or (units (unkno wn) date) unknown) (unknown) (no (unknown) (unknown) normal in (units (unkn own) date) unknown) (unknown) (no (unknown) (unknown) pars (units (unkno wn) date) unknown) (unknown) (no (unknown) (unknown) suspicion (units (unkn own) date) unknown) (unknown) (no (unknown) (unknown) the upper (units (unkn own) date) unknown) Result panel 35 (unknown) (no (unknown) (unknown) (no value) (units (unk nown) date) unknown) (unknown) (no (unknown) (unknown) Radiologist's (units ( unknown) date) Impression: unknown) (unknown) (no (unknown) (unknown) (no value) (units (unk nown) date) unknown) (unknown) (no (unknown) (unknown) Date of Service: (units (unknown) date) 12/07/21 unknown) (unknown) (no (unknown) (unknown) (no value) (units (unk nown) date) unknown) (unknown) (no (unknown) (unknown) 12/07/21 23:05 (units (unknown) date) unknown) (unknown) (no (unknown) (unknown) 1 puff INHALATION (units (unknown) date) Q4-6H PRN (Reason: unknown) shortness of breath or wheezing) Qty: 15 (unknown) (no (unknown) (unknown) 1 spray Intranasal (units (unknown) date) DAILY PRN (Reason: unknown) Allergy Symptoms) Qty: 0 0RF (unknown) (no (unknown) (unknown) 1 tab PO DAILY (units (unknown) date) Qty: 0 0RF unknown) (unknown) (no (unknown) (unknown) 1 tab PO Q6HR PRN (units (unknown) date) (Reason: Back Pain) unknown) 0RF (unknown) (no (unknown) (unknown) 1 tab PO Q8H PRN (units (unknown) date) (Reason: pain) Qty: unknown) 10 0RF (unknown) (no (unknown) (unknown) 1 tab PO TID PRN (units (unknown) date) (Reason: pain) Qty: unknown) 10 0RF (unknown) (no (unknown) (unknown) 10 mg PO DAILY 0RF (units (unknown) date) unknown) (unknown) (no (unknown) (unknown) 10 mg PO Q4-5H PRN (units (unknown) date) (Reason: Pain, unknown) Severe (7-10)) Qty: 60 0RF (unknown) (no (unknown) (unknown) 100 mg PO BID 0RF (units (unknown) date) unknown) (unknown) (no (unknown) (unknown) 100 mg PO TID PRN (units (unknown) date) (Reason: cough) unknown) Qty: 14 0RF (unknown) (no (unknown) (unknown) [address] (units (unknown) date) unknown) (unknown) (no (unknown) (unknown) 2 g topical QID (units (unknown) date) Qty: 100 0RF unknown) (unknown) (no (unknown) (unknown) 2.5 mg PO DAILY (units (unknown) date) 0RF unknown) (unknown) (no (unknown) (unknown) 2.5 mg inhalation (units (unknown) date) QID Qty: 90 1RF unknown) (unknown) (no (unknown) (unknown) 20 mg PO DAILY (units (unknown) date) Qty: 32 0RF unknown) (unknown) (no (unknown) (unknown) 25 mg PO QID PRN (units (unknown) date) (Reason: vertigo) unknown) Qty: 30 0RF (unknown) (no (unknown) (unknown) 3 ml Inhalation (units (unknown) date) Q6H PRN (Reason: unknown) Shortness Of Breath) 0RF (unknown) (no (unknown) (unknown) 300 mg PO BID Qty: (units (unknown) date) 20 0RF unknown) (unknown) (no (unknown) (unknown) 325 mg PO DAILY (units (unknown) date) 0RF unknown) (unknown) (no (unknown) (unknown) 40 mg PO DAILY 0RF (units (unknown) date) unknown) (unknown) (no (unknown) (unknown) 400 tab PO BEDTIME (units (unknown) date) 0RF unknown) (unknown) (no (unknown) (unknown) 50 mg PO DAILY (units (unknown) date) Qty: 5 0RF unknown) (unknown) (no (unknown) (unknown) 500 mg PO Q8H PRN (units (unknown) date) (Reason: muscle unknown) spasm) Qty: 14 0RF (unknown) (no (unknown) (unknown) 60mg x 5 day, 40mg (units (unknown) date) x 5 day, 20mg x5 unknown) day, 10mg x 4 days (unknown) (no (unknown) (unknown) 650 mg PO Q6H PRN (units (unknown) date) (Reason: pain) Qty: unknown) 60 0RF (unknown) (no (unknown) (unknown) ANXIETY, (units (unkno wn) date) unknown) (unknown) (no (unknown) (unknown) Admin: 12/07/21 (units (unknown) date) 23:25 Dose: 150 unknown) mls/hr (unknown) (no (unknown) (unknown) Allergies (units (unkn own) date) unknown) (unknown) (no (unknown) (unknown) [place] (units ( unknown) date) [id number] unknown) (unknown) (no (unknown) (unknown) CT Scan Report (units (unknown) date) unknown) (unknown) (no (unknown) (unknown) Close (units (unkno wn) date) unknown) (unknown) (no (unknown) (unknown) DIZZINESS (units (unkn own) date) unknown) (unknown) (no (unknown) (unknown) Documented by: (units (unknown) date) [email or web address] unknown) (unknown) (no (unknown) (unknown) Documented by: (units (unknown) date) RLAZANI unknown) (unknown) (no (unknown) (unknown) ED Orders (units (unkn own) date) unknown) (unknown) (no (unknown) (unknown) EXPOSURE (units (unkno wn) date) unknown) (unknown) (no (unknown) (unknown) Emergency Report (units (unknown) date) unknown) (unknown) (no (unknown) (unknown) Home Medications (units (unknown) date) unknown) (unknown) (no (unknown) (unknown) INHALE 1 VIAL PER (units (unknown) date) NEBULIZER EVERY 6 unknown) HOURS NEEDED (unknown) (no (unknown) (unknown) [facility] (units (unknown) date) unknown) (unknown) (no (unknown) (unknown) [facility] (units (unknown) date) [address] [place] [address] unknown) [place] [address] (unknown) (no (unknown) (unknown) JERKING, (units (unkno wn) date) unknown) (unknown) (no (unknown) (unknown) Lab Results (units (un known) date) unknown) (unknown) (no (unknown) (unknown) Label Comments: (units (unknown) date) unknown) (unknown) (no (unknown) (unknown) Last Admin: (units (un known) date) 12/08/21 01:35 unknown) Dose: 1 tab (unknown) (no (unknown) (unknown) Last Admin: (units (un known) date) 12/08/21 02:34 unknown) Dose: 4 mg (unknown) (no (unknown) (unknown) Last Admin: (units (un known) date) 12/08/21 04:04 unknown) Dose: 0.5 mg (unknown) (no (unknown) (unknown) Last Infusion: (units (unknown) date) 12/08/21 04:00 unknown) Dose: 0 mls/hr (unknown) (no (unknown) (unknown) Launch?Image (units (u nknown) date) unknown) (unknown) (no (unknown) (unknown) MINUTES (units (unkno wn) date) unknown) (unknown) (no (unknown) (unknown) NAUSEA W/I (units (unk nown) date) unknown) (unknown) (no (unknown) (unknown) Point of Care (units ( unknown) date) Testing unknown) (unknown) (no (unknown) (unknown) Previous Rx's (units ( unknown) date) unknown) (unknown) (no (unknown) (unknown) Rx Instructions: (units (unknown) date) unknown) (unknown) (no (unknown) (unknown) Signed (units (unkno wn) date) unknown) (unknown) (no (unknown) (unknown) Spouse Milana (units (u nknown) date) called + reported unknown) patient not taking it regularly. (unknown) (no (unknown) (unknown) Stop: 12/08/21 (units (unknown) date) 01:26 unknown) (unknown) (no (unknown) (unknown) Stop: 12/08/21 (units (unknown) date) 02:32 unknown) (unknown) (no (unknown) (unknown) Stop: 12/08/21 (units (unknown) date) 04:01 unknown) (unknown) (no (unknown) (unknown) Vital Signs - 8 hr (units (unknown) date) unknown) (unknown) (no (unknown) (unknown) W/EXTENDED (units (unk nown) date) unknown) (unknown) (no (unknown) (unknown) apply to single (units (unknown) date) elbow, wrist or unknown) hand; for hand includes palm/fingers/back of (unknown) (no (unknown) (unknown) patient states (units (unknown) date) weaning off. unknown) (unknown) (no (unknown) (unknown) take 1 tablet by (units (unknown) date) mouth once daily unknown) (unknown) (no (unknown) (unknown) take 1 tablet by (units (unknown) date) mouth twice a day unknown) (unknown) (no (unknown) (unknown) (no value) (units (unk nown) date) unknown) (unknown) (no (unknown) (unknown) 12/07/21 12/07/21 (units (unknown) date) 12/07/21 unknown) Range/Units (unknown) (no (unknown) (unknown) 12/07/21 12/08/21 (units (unknown) date) Range/Units unknown) (unknown) (no (unknown) (unknown) 23:05 23:05 23:05 (units (unknown) date) unknown) (unknown) (no (unknown) (unknown) 23:05 23:44 23:57 (units (unknown) date) unknown) (unknown) (no (unknown) (unknown) 23:57 01:33 (units (un known) date) unknown) (unknown) (no (unknown) (unknown) Zyrtec 10 mg (units (u nknown) date) Capsule unknown) (unknown) (no (unknown) (unknown) acetaminophen (units ( unknown) date) [Athenol] 325 mg unknown) tablet (unknown) (no (unknown) (unknown) acetaminophen-code (units (unknown) date) ine 300-30 mg unknown) tablet (unknown) (no (unknown) (unknown) albuterol sulfate (units (unknown) date) 1.25 mg/3 mL unknown) solution for nebulization (unknown) (no (unknown) (unknown) benzonatate (units (un known) date) [Tessalon Perles] unknown) 100 mg capsule (unknown) (no (unknown) (unknown) cefdinir 300 mg (units (unknown) date) capsule unknown) (unknown) (no (unknown) (unknown) diclofenac sodium (units (unknown) date) 1 % gel unknown) (unknown) (no (unknown) (unknown) ferrous sulfate (units (unknown) date) 325 mg (65 mg iron) unknown) tablet,delayed release (DR/EC) (unknown) (no (unknown) (unknown) fluticasone (units (un known) date) propionate 16 GM unknown) spray,suspension (unknown) (no (unknown) (unknown) furosemide [Lasix] (units (unknown) date) 40 mg tablet unknown) (unknown) (no (unknown) (unknown) glipizide (units (unkn own) date) [Glucotrol XL] 2.5 unknown) mg tablet extended release 24 hr (unknown) (no (unknown) (unknown) levalbuterol HCl (units (unknown) date) 1.25 mg/3 mL unknown) solution for nebulization (unknown) (no (unknown) (unknown) levalbuterol (units (u nknown) date) tartrate [Xopenex unknown) HFA] 45 mcg/actuation HFA aerosol inhaler (unknown) (no (unknown) (unknown) meclizine 25 mg (units (unknown) date) tablet unknown) (unknown) (no (unknown) (unknown) methocarbamol 500 (units (unknown) date) mg tablet unknown) (unknown) (no (unknown) (unknown) metoprolol (units (unk nown) date) tartrate 100 mg unknown) tablet (unknown) (no (unknown) (unknown) multivitamin (units (u nknown) date) [Multiple Vitamins] unknown) 1 EACH tablet (unknown) (no (unknown) (unknown) oxycodone 5 mg (units (unknown) date) Tablet unknown) (unknown) (no (unknown) (unknown) oxycodone-acetamin (units (unknown) date) ophen [Percocet] unknown) 5-325 mg tablet (unknown) (no (unknown) (unknown) prednisone 20 mg (units (unknown) date) tablet unknown) (unknown) (no (unknown) (unknown) prednisone 50 mg (units (unknown) date) tablet unknown) (unknown) (no (unknown) (unknown) trazodone 100 mg (units (unknown) date) tablet unknown) (unknown) (no (unknown) (unknown) 12/07/21 (units (unkno wn) date) unknown) (unknown) (no (unknown) (unknown) Medication (units (unk nown) date) Instructions unknown) Recorded (unknown) (no (unknown) (unknown) Medication (units (unk nown) date) Instructions unknown) Recorded Confirmed (unknown) (no (unknown) (unknown) been contacted and (units (unknown) date) she will be able to unknown) come pick him up in the morning. (unknown) (no (unknown) (unknown) facet (units (unkno wn) date) unknown) (unknown) (no (unknown) (unknown) junction (units (unkno wn) date) unknown) (unknown) (no (unknown) (unknown) of (units (unkno wn) date) unknown) (unknown) (no (unknown) (unknown) rales, or rhonchi. (units (unknown) date) unknown) (unknown) (no (unknown) (unknown) (Athenol) (units (unkn own) date) unknown) (unknown) (no (unknown) (unknown) (More??) (units (unkno wn) date) unknown) (unknown) (no (unknown) (unknown) (Tessalon Perles) (units (unknown) date) unknown) (unknown) (no (unknown) (unknown) (Xopenex HFA) (units ( unknown) date) unknown) (unknown) (no (unknown) (unknown) - (units (unkno wn) date) unknown) (unknown) (no (unknown) (unknown) [id number] (units (unkn own) date) unknown) (unknown) (no (unknown) (unknown) 08/11/20 (units (unkno wn) date) unknown) (unknown) (no (unknown) (unknown) 08/16/20 (units (unkno wn) date) unknown) (unknown) (no (unknown) (unknown) 08/28/20 (units (unkno wn) date) unknown) (unknown) (no (unknown) (unknown) 09/15/21 (units (unkno wn) date) unknown) (unknown) (no (unknown) (unknown) 10/07/21 (units (unkno wn) date) unknown) (unknown) (no (unknown) (unknown) 10/08/21 (units (unkno wn) date) unknown) (unknown) (no (unknown) (unknown) 10/31/20 (units (unkno wn) date) unknown) (unknown) (no (unknown) (unknown) 11/04/20 (units (unkno wn) date) unknown) (unknown) (no (unknown) (unknown) 11/07/20 (units (unkno wn) date) unknown) (unknown) (no (unknown) (unknown) 11/19/21 (units (unkno wn) date) unknown) (unknown) (no (unknown) (unknown) 11/22/20 (units (unkno wn) date) unknown) (unknown) (no (unknown) (unknown) 11/28/21 (units (unkno wn) date) unknown) (unknown) (no (unknown) (unknown) 12/07/21 (units (unkno wn) date) unknown) (unknown) (no (unknown) (unknown) 12/07/21 23:05 (units (unknown) date) unknown) (unknown) (no (unknown) (unknown) 12/07/21 23:21 (units (unknown) date) unknown) (unknown) (no (unknown) (unknown) 12/07/21 23:44 (units (unknown) date) unknown) (unknown) (no (unknown) (unknown) 12/07/21 23:57 (units (unknown) date) unknown) (unknown) (no (unknown) (unknown) 12/08/21 03:22 (units (unknown) date) unknown) (unknown) (no (unknown) (unknown) 12/28/20 (units (unkno wn) date) unknown) (unknown) (no (unknown) (unknown) 05:37 (units (unkno wn) date) unknown) (unknown) (no (unknown) (unknown) 03/05/21 (units (unkno wn) date) unknown) (unknown) (no (unknown) (unknown) 04/16/21 (units (unkno wn) date) unknown) (unknown) (no (unknown) (unknown) 0RF (units (unkno wn) date) unknown) (unknown) (no (unknown) (unknown) 1. No acute (units (un known) date) intracranial unknown) abnormality. (unknown) (no (unknown) (unknown) 1.? No acute (units (u nknown) date) fracture or unknown) subluxation. (unknown) (no (unknown) (unknown) 12 point review of (units (unknown) date) systems is negative unknown) except for those stated above (unknown) (no (unknown) (unknown) 07/18/20 (units (unkno wn) date) unknown) (unknown) (no (unknown) (unknown) 2. Bony remodeling (units (unknown) date) in the left unknown) maxillary sinus redemonstrated consistent with (unknown) (no (unknown) (unknown) 2. Postsurgical (units (unknown) date) changes unknown) redemonstrated throughout the cervical spine with fusion (unknown) (no (unknown) (unknown) 23:17 12/08/21 (units (unknown) date) unknown) (unknown) (no (unknown) (unknown) 3. Mild cerebral (units (unknown) date) volume loss.? 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 (units (unkno wn) date) unknown) (unknown) (no (unknown) (unknown) ? (units (unkno wn) date) unknown) (unknown) (no (unknown) (unknown) ?Minimal (units (unkno wn) date) anterolisthesis unknown) also demonstrated at T1-T2.? Findings are similar to (unknown) (no (unknown) (unknown) ACDF at (units (unkno wn) date) unknown) (unknown) (no (unknown) (unknown) ALT (<50) (units ( unknown) date) IU/L unknown) (unknown) (no (unknown) (unknown) ALT (<50) IU/L (units (unknown) date) unknown) (unknown) (no (unknown) (unknown) ALT 31 (<50) (units (unknown) date) IU/L unknown) (unknown) (no (unknown) (unknown) ANTIBIOTICS)] (units ( unknown) date) unknown) (unknown) (no (unknown) (unknown) AST (17-59) (units (unknown) date) IU/L unknown) (unknown) (no (unknown) (unknown) AST (17-59) (units (unknown) date) IU/L unknown) (unknown) (no (unknown) (unknown) AST 32 (17-59) (units (unknown) date) IU/L unknown) (unknown) (no (unknown) (unknown) Accession Number: (units (unknown) date) [id number] ?? unknown) (unknown) (no (unknown) (unknown) Accession Number: (units (unknown) date) [id number] ?? unknown) (unknown) (no (unknown) (unknown) Acct:[id number] (units (unknown) date) unknown) (unknown) (no (unknown) (unknown) Acetaminophen (units ( unknown) date) (10-30) ug/mL unknown) (unknown) (no (unknown) (unknown) Acetaminophen (units ( unknown) date) (10-30) ug/mL unknown) (unknown) (no (unknown) (unknown) Acetaminophen < (units (unknown) date) 10 (10-30) ug/mL unknown) (unknown) (no (unknown) (unknown) Acetaminophen Stat (units (unknown) date) unknown) (unknown) (no (unknown) (unknown) Acetaminophen/Code (units (unknown) date) ine Phosphate unknown) (Codeine/Acetaminop hen 30/300 Tablet) 1 tab PO (unknown) (no (unknown) (unknown) Achalasia (units (unkn own) date) unknown) (unknown) (no (unknown) (unknown) Age/Sex: 76 / M (units (unknown) date) unknown) (unknown) (no (unknown) (unknown) Age/Sex: 76 / M (units (unknown) date) unknown) (unknown) (no (unknown) (unknown) Albumin (units (unkno wn) date) (3.5-5.0) g/dL unknown) (unknown) (no (unknown) (unknown) Albumin (units (unkno wn) date) (3.5-5.0) g/dL unknown) (unknown) (no (unknown) (unknown) Albumin 4.1 (units ( unknown) date) (3.5-5.0) g/dL unknown) (unknown) (no (unknown) (unknown) Albumin/Globulin (units (unknown) date) Ratio (1.0-2.8) unknown) (unknown) (no (unknown) (unknown) Albumin/Globulin (units (unknown) date) Ratio (1.0-2.8) unknown) (unknown) (no (unknown) (unknown) Albumin/Globulin (units (unknown) date) Ratio 1.4 unknown) (1.0-2.8) (unknown) (no (unknown) (unknown) Alkaline (units (unkno wn) date) Phosphatase unknown) (38-126) U/L (unknown) (no (unknown) (unknown) Alkaline (units (unkno wn) date) Phosphatase unknown) (38-126) U/L (unknown) (no (unknown) (unknown) Alkaline (units (unkno wn) date) Phosphatase 64 unknown) (38-126) U/L (unknown) (no (unknown) (unknown) Allergy/Adv: (units (u nknown) date) celecoxib, latex, unknown) Sulfa (Sulfonamide Antibiotics), varenicline, (unknown) (no (unknown) (unknown) Allergy/AdvReac (units (unknown) date) Type Severity unknown) Reaction Status Date / Time (unknown) (no (unknown) (unknown) Anginal pain (units (u nknown) date) unknown) (unknown) (no (unknown) (unknown) Ankle X-Ray (units (un known) date) (Signed) unknown) (unknown) (no (unknown) (unknown) Antibiotics) (units (u nknown) date) unknown) (unknown) (no (unknown) (unknown) Approved by: (units (u nknown) date) Maxim Valadez, unknown) Clifford on 12/07/2021 at 21:44 ? (unknown) (no (unknown) (unknown) Approved by: (units (u nknown) date) Maxim Valadez, unknown) MPj on 12/07/2021 at 21:48 ? (unknown) (no (unknown) (unknown) Asthma (units (unkno wn) date) unknown) (unknown) (no (unknown) (unknown) Atrial (units (unkno wn) date) fibrillation unknown) (unknown) (no (unknown) (unknown) BACK: Nontender (units (unknown) date) without deformity unknown) or crepitance. No flank tenderness. (unknown) (no (unknown) (unknown) BUN (9-20) (units (unknown) date) mg/dL unknown) (unknown) (no (unknown) (unknown) BUN (9-20) (units ( unknown) date) mg/dL unknown) (unknown) (no (unknown) (unknown) BUN 21 H (units (unk nown) date) (9-20) mg/dL unknown) (unknown) (no (unknown) (unknown) BUN/Creatinine (units (unknown) date) Ratio (6-22) unknown) (unknown) (no (unknown) (unknown) BUN/Creatinine (units (unknown) date) Ratio (6-22) unknown) (unknown) (no (unknown) (unknown) BUN/Creatinine (units (unknown) date) Ratio 23.9 H unknown) (6-22) (unknown) (no (unknown) (unknown) Baso # (Auto) (units ( unknown) date) (0-100) /uL unknown) (unknown) (no (unknown) (unknown) Baso # (Auto) (units ( unknown) date) (0-100) /uL unknown) (unknown) (no (unknown) (unknown) Baso # (Auto) 100 (units (unknown) date) (0-100) /uL unknown) (unknown) (no (unknown) (unknown) Baso % (Auto) (units ( unknown) date) (0-2) % unknown) (unknown) (no (unknown) (unknown) Baso % (Auto) (units ( unknown) date) (0-2) % unknown) (unknown) (no (unknown) (unknown) Baso % (Auto) 0.8 (units (unknown) date) (0-2) % unknown) (unknown) (no (unknown) (unknown) Blood Culture Stat (units (unknown) date) unknown) (unknown) (no (unknown) (unknown) Blood Pressure (units (unknown) date) 159/98 H 12/07/21 unknown) 20:23 (unknown) (no (unknown) (unknown) Blood Pressure (units (unknown) date) 207/103 H unknown) (unknown) (no (unknown) (unknown) Bones:? No (units (unk nown) date) fractures or unknown) subluxation.? There is anterolisthesis at C2-C3 (unknown) (no (unknown) (unknown) Brain MRI (Signed) (units (unknown) date) unknown) (unknown) (no (unknown) (unknown) Brain:? No (units (unkn own) date) intracranial unknown) hemorrhage, mass, or mass effect.? The adams-white matter (unknown) (no (unknown) (unknown) C4-C5 and C7-T1.? (units (unknown) date) There is also unknown) fusion at C5-C6 and C6-C7.? There is mild to (unknown) (no (unknown) (unknown) CARDIOVASCULAR: (units (unknown) date) Denies chest pain, unknown) palpitations, orthopnea, edema, (unknown) (no (unknown) (unknown) CARDIOVASCULAR: (units (unknown) date) Regular rate and unknown) rhythm without murmurs, gallops, or rubs. (unknown) (no (unknown) (unknown) COMPARISON:? (units (u nknown) date) [facility], unknown) CT, CT CERVICAL SPINE WO CON, 04/16/2021, 12:21. (unknown) (no (unknown) (unknown) COMPARISON:? (units (u nknown) date) [facility], unknown) CT, CT HEAD/BRAIN WO CON, 04/16/2021, 12:21. (unknown) (no (unknown) (unknown) COPD (chronic (units ( unknown) date) obstructive unknown) pulmonary disease) (unknown) (no (unknown) (unknown) COVID19 -Nasal (units (unknown) date) RAPID/Pre-Proc Stat unknown) (unknown) (no (unknown) (unknown) CSF spaces:? Basal (units (unknown) date) cisterns are unknown) patent.? The ventricles are symmetric in size (unknown) (no (unknown) (unknown) CT - cervical (units ( unknown) date) spine: unknown) (unknown) (no (unknown) (unknown) CT lumbar spine wo (units (unknown) date) con Stat unknown) (unknown) (no (unknown) (unknown) CT scan - head: (units (unknown) date) unknown) (unknown) (no (unknown) (unknown) Calcium (units (unkno wn) date) (8.4-10.2) mg/dL unknown) (unknown) (no (unknown) (unknown) Calcium (units (unkno wn) date) (8.4-10.2) mg/dL unknown) (unknown) (no (unknown) (unknown) Calcium 8.4 (units ( unknown) date) (8.4-10.2) mg/dL unknown) (unknown) (no (unknown) (unknown) Call,Francisco J (units (unk nown) date) unknown) (unknown) (no (unknown) (unknown) Carbon Dioxide (units (unknown) date) (22-32) mmol/L unknown) (unknown) (no (unknown) (unknown) Carbon Dioxide (units (unknown) date) (22-32) mmol/L unknown) (unknown) (no (unknown) (unknown) Carbon Dioxide (units (unknown) date) 27 (22-32) unknown) mmol/L (unknown) (no (unknown) (unknown) Cervical Spine CT (units (unknown) date) (Signed) unknown) (unknown) (no (unknown) (unknown) Cervical spinal (units (unknown) date) stenosis unknown) (unknown) (no (unknown) (unknown) Chest CTA (Signed) (units (unknown) date) unknown) (unknown) (no (unknown) (unknown) Chest X-Ray (units (un known) date) (Signed) unknown) (unknown) (no (unknown) (unknown) Chest/Abdomen/Pelv (units (unknown) date) is CTA (Signed) unknown) (unknown) (no (unknown) (unknown) Chief Complaint: (units (unknown) date) Trauma unknown) (unknown) (no (unknown) (unknown) Chloride (units (unkno wn) date) (98-107) mmol/L unknown) (unknown) (no (unknown) (unknown) Chloride (units (unkno wn) date) (98-107) mmol/L unknown) (unknown) (no (unknown) (unknown) Chloride 104 (units (unknown) date) (98-107) mmol/L unknown) (unknown) (no (unknown) (unknown) 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 (10/22/16) (unknown) (no (unknown) (unknown) Zeina Saavedra (units (u nknown) date) unknown) (unknown) (no (unknown) (unknown) Complete Blood (units (unknown) date) Count AUTO DIFF unknown) Stat (unknown) (no (unknown) (unknown) Comprehensive (units ( unknown) date) Metabolic Panel unknown) Stat (unknown) (no (unknown) (unknown) Coronary artery (units (unknown) date) disease unknown) (unknown) (no (unknown) (unknown) Course (units (unkno wn) date) unknown) (unknown) (no (unknown) (unknown) Creatinine (units (unk nown) date) (0.66-1.25) mg/dL unknown) (unknown) (no (unknown) (unknown) Creatinine (units (unk nown) date) (0.66-1.25) mg/dL unknown) (unknown) (no (unknown) (unknown) Creatinine 0.88 (units (unknown) date) (0.66-1.25) mg/dL unknown) (unknown) (no (unknown) (unknown) : 1945 (units (unknown) date) Acct:[id number] unknown) (unknown) (no (unknown) (unknown) : 1945 (units (unknown) date) unknown) (unknown) (no (unknown) (unknown) Kimmy Gomez MD (units (unknown) date) [Primary Care unknown) Provider] - (unknown) (no (unknown) (unknown) Date of Service: (units (unknown) date) 12/07/21 unknown) (unknown) (no (unknown) (unknown) Departure (units (unkn own) date) unknown) (unknown) (no (unknown) (unknown) Inder Farley (units (u nknown) date) unknown) (unknown) (no (unknown) (unknown) Dictated by: (units (u nknown) date) mohamud Monsivais M.D. on 12/07/2021 at 21:42 ? ? (unknown) (no (unknown) (unknown) Dictated by: (units (u nknown) date) dinorah Monsivais) Clifford on 12/07/2021 at 21:44 ? ? (unknown) (no (unknown) (unknown) Discharge Plan (units (unknown) date) unknown) (unknown) (no (unknown) (unknown) Discontinued (units (u nknown) date) Medications unknown) (unknown) (no (unknown) (unknown) ENT: Nose without (units (unknown) date) bleeding, purulent unknown) drainage. No nasal septal hematoma Throat (unknown) (no (unknown) (unknown) ER Physician: (units ( unknown) date) Jung Dejesus D.O. unknown) (unknown) (no (unknown) (unknown) EXTREMITIES: No (units (unknown) date) edema or joint unknown) tenderness. (unknown) (no (unknown) (unknown) EYES: Pupils equal (units (unknown) date) round and reactive. unknown) No hyphema Extraocular motions intact. (unknown) (no (unknown) (unknown) Echocardiogram (units (unknown) date) Ultrasound (Signed) unknown) (unknown) (no (unknown) (unknown) Eos # (Auto) (units (u nknown) date) (0-450) /uL unknown) (unknown) (no (unknown) (unknown) Eos # (Auto) (units (u nknown) date) (0-450) /uL unknown) (unknown) (no (unknown) (unknown) Eos # (Auto) 100 (units (unknown) date) (0-450) /uL unknown) (unknown) (no (unknown) (unknown) Eos % (Auto) (units (u nknown) date) (2-4) % unknown) (unknown) (no (unknown) (unknown) Eos % (Auto) (units (u nknown) date) (2-4) % unknown) (unknown) (no (unknown) (unknown) Eos % (Auto) 2.0 (units (unknown) date) (2-4) % unknown) (unknown) (no (unknown) (unknown) Estimated GFR (units ( unknown) date) (>60) mL/min unknown) (unknown) (no (unknown) (unknown) Estimated GFR (units ( unknown) date) (>60) mL/min unknown) (unknown) (no (unknown) (unknown) Estimated GFR > (units (unknown) date) 60 (>60) mL/min unknown) (unknown) (no (unknown) (unknown) Ethanol (ETOH) (units (unknown) date) Stat unknown) (unknown) (no (unknown) (unknown) Ethyl Alcohol ( (units (unknown) date) - 10) mg/dL unknown) (unknown) (no (unknown) (unknown) Ethyl Alcohol ( (units (unknown) date) - 10) mg/dL unknown) (unknown) (no (unknown) (unknown) Ethyl Alcohol (units ( unknown) date) 111 H ( - 10) unknown) mg/dL (unknown) (no (unknown) (unknown) Exam (units (unkno wn) date) unknown) (unknown) (no (unknown) (unknown) Exam Narrative: (units (unknown) date) unknown) (unknown) (no (unknown) (unknown) FINDINGS:? (units (unk nown) date) unknown) (unknown) (no (unknown) (unknown) Family History (units (unknown) date) (Reviewed 12/08/21 unknown) @ 01:57 by Jung Dejesus DO) (unknown) (no (unknown) (unknown) Foot X-Ray (units (unk nown) date) (Signed) unknown) (unknown) (no (unknown) (unknown) GASTROINTESTINAL: (units (unknown) date) Abdomen soft, unknown) non-tender, nondistended. (unknown) (no (unknown) (unknown) GASTROINTESTINAL: (units (unknown) date) Denies nausea, unknown) vomiting, abdominal pain, diarrhea, (unknown) (no (unknown) (unknown) GENERAL: Denies (units (unknown) date) chills, fatigue, unknown) malaise, fever, sweats. (unknown) (no (unknown) (unknown) GENERAL: [76 year (units (unknown) date) old patient appears unknown) stated age. Well-developed patient, in (unknown) (no (unknown) (unknown) : Denies (units (unk nown) date) dysuria, frequency, unknown) incontinence, hematuria, urinary retention. (unknown) (no (unknown) (unknown) General (units (unkno wn) date) unknown) (unknown) (no (unknown) (unknown) GenericComposite[P (units (unknown) date) lt Count unknown) (150-400) X10^3/uL ] (unknown) (no (unknown) (unknown) GenericComposite[P (units (unknown) date) lt Count unknown) (150-400) X10^3/uL ] (unknown) (no (unknown) (unknown) GenericComposite[P (units (unknown) date) lt Count 241 unknown) (150-400) X10^3/uL ] (unknown) (no (unknown) (unknown) GenericComposite[R (units (unknown) date) BC (4.5-5.9) unknown) X10^6/uL ] (unknown) (no (unknown) (unknown) GenericComposite[R (units (unknown) date) BC (4.5-5.9) unknown) X10^6/uL ] (unknown) (no (unknown) (unknown) GenericComposite[R (units (unknown) date) BC 4.93 unknown) (4.5-5.9) X10^6/uL ] (unknown) (no (unknown) (unknown) GenericComposite[W (units (unknown) date) BC (4.5-11.0) unknown) X10^3/uL ] (unknown) (no (unknown) (unknown) GenericComposite[W (units (unknown) date) BC (4.5-11.0) unknown) X10^3/uL ] (unknown) (no (unknown) (unknown) GenericComposite[W (units (unknown) date) BC 7.4 unknown) (4.5-11.0) X10^3/uL ] (unknown) (no (unknown) (unknown) Globulin (units (unkno wn) date) (1.7-4.1) g/dL unknown) (unknown) (no (unknown) (unknown) Globulin (units (unkno wn) date) (1.7-4.1) g/dL unknown) (unknown) (no (unknown) (unknown) Globulin 2.9 (units (unknown) date) (1.7-4.1) g/dL unknown) (unknown) (no (unknown) (unknown) Glucose (units (unkno wn) date) (80-110) mg/dL unknown) (unknown) (no (unknown) (unknown) Glucose (units (unkno wn) date) (80-110) mg/dL unknown) (unknown) (no (unknown) (unknown) Glucose 124 H (units (unknown) date) (80-110) mg/dL unknown) (unknown) (no (unknown) (unknown) Glucose POC 118 (units (unknown) date) unknown) (unknown) (no (unknown) (unknown) H/O arthroscopic (units (unknown) date) knee surgery unknown) (11/14/17) (unknown) (no (unknown) (unknown) HEAD: Superficial (units (unknown) date) abrasion on the unknown) bridge of his nose, no other obvious (unknown) (no (unknown) (unknown) HEENT: See HPI (units (unknown) date) unknown) (unknown) (no (unknown) (unknown) HPI - Fall (units (unk nown) date) unknown) (unknown) (no (unknown) (unknown) HPI Narrative: (units (unknown) date) unknown) (unknown) (no (unknown) (unknown) Hand X-Ray (units (unk nown) date) (Signed) unknown) (unknown) (no (unknown) (unknown) Jean Oneill (units (unknown) date) unknown) (unknown) (no (unknown) (unknown) Hct (41-53) % (units (unknown) date) unknown) (unknown) (no (unknown) (unknown) Hct (41-53) % (units (unknown) date) unknown) (unknown) (no (unknown) (unknown) Hct 46.0 (units (unkn own) date) (41-53) % unknown) (unknown) (no (unknown) (unknown) Head CT (Signed) (units (unknown) date) unknown) (unknown) (no (unknown) (unknown) Head/Neck CTA (units ( unknown) date) (Signed) unknown) (unknown) (no (unknown) (unknown) Hgb (units (unkno wn) date) (13.5-17.5) g/dL unknown) (unknown) (no (unknown) (unknown) Hgb (13.5-17.5) (units (unknown) date) g/dL unknown) (unknown) (no (unknown) (unknown) Hgb 15.6 (units (unkn own) date) (13.5-17.5) g/dL unknown) (unknown) (no (unknown) (unknown) History of Present (units (unknown) date) Illness unknown) (unknown) (no (unknown) (unknown) History of aortic (units (unknown) date) dissection unknown) () (unknown) (no (unknown) (unknown) History of (units (unk nown) date) arthroplasty of unknown) right knee (unknown) (no (unknown) (unknown) 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 (unknown) (no (unknown) (unknown) History of cardiac (units (unknown) date) cath () unknown) (unknown) (no (unknown) (unknown) History of (units (unk nown) date) esophageal surgery unknown) (unknown) (no (unknown) (unknown) History of (units (unk nown) date) incision and unknown) drainage () (unknown) (no (unknown) (unknown) History of prior (units (unknown) date) ablation treatment unknown) () (unknown) (no (unknown) (unknown) History of surgery (units (unknown) date) unknown) (unknown) (no (unknown) (unknown) Vidal,Ronni (units (unk nown) date) unknown) (unknown) (no (unknown) (unknown) Hx of (units (unkno wn) date) cholecystectomy unknown) (unknown) (no (unknown) (unknown) Hx of hernia (units (u nknown) date) repair unknown) (unknown) (no (unknown) (unknown) Hx of sinus (units (un known) date) surgery unknown) (unknown) (no (unknown) (unknown) Hydromorphone HCl (units (unknown) date) (Hydromorphone 0.5 unknown) Mg Inj) 0.5 mg IV NOW ONE (unknown) (no (unknown) (unknown) Hypertension (units (u nknown) date) unknown) (unknown) (no (unknown) (unknown) IMPRESSION:? (units (u nknown) date) unknown) (unknown) (no (unknown) (unknown) INDICATIONS:? (units ( unknown) date) trauma unknown) (unknown) (no (unknown) (unknown) INHIBITOR] (units (unk nown) date) unknown) (unknown) (no (unknown) (unknown) Image quality:? (units (unknown) date) Excellent.? unknown) (unknown) (no (unknown) (unknown) Image quality:? (units (unknown) date) There is motion unknown) artifact limiting evaluation.? (unknown) (no (unknown) (unknown) Imaging Data (units (u nknown) date) unknown) (unknown) (no (unknown) (unknown) Inhibitor (units (unkn own) date) MUSCLES unknown) (unknown) (no (unknown) (unknown) Initial Vital (units ( unknown) date) Signs unknown) (unknown) (no (unknown) (unknown) Initial Vital (units ( unknown) date) Signs: unknown) (unknown) (no (unknown) (unknown) Ischemic (units (unkno wn) date) cardiomyopathy unknown) (unknown) (no (unknown) (unknown) Theodore,Exmore (units (unknown) date) unknown) (unknown) (no (unknown) (unknown) Ashley,Bharath (units ( unknown) date) unknown) (unknown) (no (unknown) (unknown) Knee X-Ray (units (unk nown) date) (Signed) unknown) (unknown) (no (unknown) (unknown) Lab Data (units (unkno wn) date) unknown) (unknown) (no (unknown) (unknown) Labs: (units (unkno wn) date) unknown) (unknown) (no (unknown) (unknown) Lactate (units (unkno wn) date) (0.7-2.1) mmol/L unknown) (unknown) (no (unknown) (unknown) Lactate 2.3 H (units (unknown) date) (0.7-2.1) mmol/L unknown) (unknown) (no (unknown) (unknown) Lactate 1.5 (units ( unknown) date) (0.7-2.1) mmol/L unknown) (unknown) (no (unknown) (unknown) Lactate (Lactic (units (unknown) date) Acid) Stat unknown) (unknown) (no (unknown) (unknown) JarrettSatish (units (unkno wn) date) unknown) (unknown) (no (unknown) (unknown) Loc: ED (units (unkno wn) date) unknown) (unknown) (no (unknown) (unknown) Lumbar Spine MRI (units (unknown) date) (Signed) unknown) (unknown) (no (unknown) (unknown) Lymph # (Auto) (units (unknown) date) (1887-4720) /uL unknown) (unknown) (no (unknown) (unknown) Lymph # (Auto) (units (unknown) date) (1361-6861) /uL unknown) (unknown) (no (unknown) (unknown) Lymph # (Auto) (units (unknown) date) 1700 (7505-7438) unknown) /uL (unknown) (no (unknown) (unknown) Lymph % (Auto) (units (unknown) date) (25-40) % unknown) (unknown) (no (unknown) (unknown) Lymph % (Auto) (units (unknown) date) (25-40) % unknown) (unknown) (no (unknown) (unknown) Lymph % (Auto) (units (unknown) date) 23.0 L (25-40) unknown) % (unknown) (no (unknown) (unknown) MCH (26-34) (units (unknown) date) PG unknown) (unknown) (no (unknown) (unknown) MCH (26-34) PG (units (unknown) date) unknown) (unknown) (no (unknown) (unknown) MCH 31.7 (units (unkn own) date) (26-34) PG unknown) (unknown) (no (unknown) (unknown) MCHC (30-36) (units (unknown) date) % unknown) (unknown) (no (unknown) (unknown) MCHC (30-36) % (units (unknown) date) unknown) (unknown) (no (unknown) (unknown) MCHC 34.0 (units (unk nown) date) (30-36) % unknown) (unknown) (no (unknown) (unknown) MCV (80-100) (units (unknown) date) fL unknown) (unknown) (no (unknown) (unknown) MCV (80-100) (units (unknown) date) fL unknown) (unknown) (no (unknown) (unknown) MCV 93.3 (units (unkn own) date) (80-100) fL unknown) (unknown) (no (unknown) (unknown) MDM - Fall (units (unk nown) date) unknown) (unknown) (no (unknown) (unknown) MR#: [id number] (units (unknown) date) unknown) (unknown) (no (unknown) (unknown) MUSCULOSKELETAL: (units (unknown) date) See HPI unknown) (unknown) (no (unknown) (unknown) Medical History (units (unknown) date) (Reviewed 12/08/21 unknown) @ 01:57 by Jung Dejesus DO) (unknown) (no (unknown) (unknown) Cheryl Husain (units (unknown) date) unknown) (unknown) (no (unknown) (unknown) Mode of arrival: (units (unknown) date) EMS unknown) (unknown) (no (unknown) (unknown) [place] # (Auto) (units ( unknown) date) (0-900) /uL unknown) (unknown) (no (unknown) (unknown) [place] # (Auto) (units ( unknown) date) (0-900) /uL unknown) (unknown) (no (unknown) (unknown) [place] # (Auto) 700 (units (unknown) date) (0-900) /uL unknown) (unknown) (no (unknown) (unknown) [place] % (Auto) (units ( unknown) date) (3-14) % unknown) (unknown) (no (unknown) (unknown) [place] % (Auto) (units ( unknown) date) (3-14) % unknown) (unknown) (no (unknown) (unknown) [place] % (Auto) 9.5 (units (unknown) date) (3-14) % unknown) (unknown) (no (unknown) (unknown) Mother (units (unknown) date) Stroke unknown) (unknown) (no (unknown) (unknown) NECK: Trachea (units ( unknown) date) midline. Non tender unknown) (unknown) (no (unknown) (unknown) NEURO: Cranial (units (unknown) date) nerves 2-12 grossly unknown) intact (unknown) (no (unknown) (unknown) NEUROLOGIC: Denies (units (unknown) date) weakness, headache, unknown) numbness, change in speech, confusion, (unknown) (no (unknown) (unknown) NOW ONE (units (unkno wn) date) unknown) (unknown) (no (unknown) (unknown) Narcotic (units (unkno wn) date) dependence unknown) (unknown) (no (unknown) (unknown) Narrative (units (unkn own) date) unknown) (unknown) (no (unknown) (unknown) Narrative: (units (unk nown) date) unknown) (unknown) (no (unknown) (unknown) Neck pain, chronic (units (unknown) date) unknown) (unknown) (no (unknown) (unknown) Neut # (Auto) (units ( unknown) date) (7438-8010) /uL unknown) (unknown) (no (unknown) (unknown) Neut # (Auto) (units ( unknown) date) (2091-4920) /uL unknown) (unknown) (no (unknown) (unknown) Neut # (Auto) (units ( unknown) date) 4800 (0158-4752) unknown) /uL (unknown) (no (unknown) (unknown) Neut % (Auto) (units ( unknown) date) (50-75) % unknown) (unknown) (no (unknown) (unknown) Neut % (Auto) (units ( unknown) date) (50-75) % unknown) (unknown) (no (unknown) (unknown) Neut % (Auto) (units ( unknown) date) 64.7 (50-75) % unknown) (unknown) (no (unknown) (unknown) No Action (units (unkn own) date) unknown) (unknown) (no (unknown) (unknown) No scleral (units (unk nown) date) icterus. No unknown) injection or drainage. (unknown) (no (unknown) (unknown) Noncontrast 3 mm (units (unknown) date) thick sections unknown) acquired from the skull base to the T4 level.? (unknown) (no (unknown) (unknown) Noncontrast 4.5 mm (units (unknown) date) thick angled axial unknown) sections acquired from the foramen magnum (unknown) (no (unknown) (unknown) Ondansetron HCl (units (unknown) date) (Ondansetron 4 Mg/2 unknown) Ml Inj) 4 mg IV NOW ONE (unknown) (no (unknown) (unknown) Ordered: (units (unkno wn) date) unknown) (unknown) (no (unknown) (unknown) Ordering Provider: (units (unknown) date) Jung Dejesus D.O. unknown) (unknown) (no (unknown) (unknown) Orders (units (unkno wn) date) unknown) (unknown) (no (unknown) (unknown) PROCEDURE:? CT (units (unknown) date) CERVICAL SPINE WO unknown) CON (unknown) (no (unknown) (unknown) PROCEDURE:? CT (units (unknown) date) HEAD/BRAIN WO CON unknown) (unknown) (no (unknown) (unknown) PSYCHIATRIC: No (units (unknown) date) concerning unknown) psychosocial issues. (unknown) (no (unknown) (unknown) Patient History (units (unknown) date) unknown) (unknown) (no (unknown) (unknown) Patient observed (units (unknown) date) for some time unknown) before labs added. He has continued to have a (unknown) (no (unknown) (unknown) Patient: (units (unkno wn) date) Dominic Viveros unknown) MR#: M (unknown) (no (unknown) (unknown) Patient: (units (unkno wn) date) Dominic Viveros unknown) (unknown) (no (unknown) (unknown) Maxim Valadez (units (un known) date) unknown) (unknown) (no (unknown) (unknown) Potassium (units (unkn own) date) (3.4-5.1) mmol/L unknown) (unknown) (no (unknown) (unknown) Potassium (units (unkn own) date) (3.4-5.1) mmol/L unknown) (unknown) (no (unknown) (unknown) Potassium 4.5 (units (unknown) date) (3.4-5.1) mmol/L unknown) (unknown) (no (unknown) (unknown) Prescriptions: (units (unknown) date) unknown) (unknown) (no (unknown) (unknown) Procedure: CT (units ( unknown) date) cervical spine wo unknown) con (unknown) (no (unknown) (unknown) Procedure: CT (units ( unknown) date) head/brain wo con unknown) (unknown) (no (unknown) (unknown) Prolactin (units (unkn own) date) (3.7-17.9) ng/mL unknown) (unknown) (no (unknown) (unknown) Prolactin (units (unkn own) date) (3.7-17.9) ng/mL unknown) (unknown) (no (unknown) (unknown) Prolactin 18.9 H (units (unknown) date) (3.7-17.9) ng/mL unknown) (unknown) (no (unknown) (unknown) Prolactin Stat (units (unknown) date) unknown) (unknown) (no (unknown) (unknown) Pulse Oximetry 92 (units (unknown) date) 12/07/21 20:23 unknown) (unknown) (no (unknown) (unknown) Pulse Oximetry 91 (units (unknown) date) 96 unknown) (unknown) (no (unknown) (unknown) Pulse Rate 88 (units (unknown) date) 12/07/21 20:23 unknown) (unknown) (no (unknown) (unknown) Pulse Rate 85 67 (units (unknown) date) unknown) (unknown) (no (unknown) (unknown) RDW (units (unkno wn) date) (11.6-14.8) % unknown) (unknown) (no (unknown) (unknown) RDW (11.6-14.8) (units (unknown) date) % unknown) (unknown) (no (unknown) (unknown) RDW 13.7 (units (unkn own) date) (11.6-14.8) % unknown) (unknown) (no (unknown) (unknown) RESPIRATORY: Clear (units (unknown) date) to auscultation. unknown) Breath sounds equal bilaterally. No wheezes, (unknown) (no (unknown) (unknown) RESPIRATORY: (units (u nknown) date) Denies dyspnea, unknown) cough, wheezing, hemoptysis, sputum. (unknown) (no (unknown) (unknown) Dominic Viveros (units (unknown) date) D??76??M?? unknown) 5 (unknown) (no (unknown) (unknown) Reevaluation #1: (units (unknown) date) unknown) (unknown) (no (unknown) (unknown) Reevaluation(s) (units (unknown) date) unknown) (unknown) (no (unknown) (unknown) Referrals: (units (unk nown) date) unknown) (unknown) (no (unknown) (unknown) Related Data (units (u nknown) date) unknown) (unknown) (no (unknown) (unknown) Respiratory Rate (units (unknown) date) 17 unknown) (unknown) (no (unknown) (unknown) Respiratory Rate (units (unknown) date) 22 12/07/21 20:23 unknown) (unknown) (no (unknown) (unknown) Result diagrams: (units (unknown) date) unknown) (unknown) (no (unknown) (unknown) Review of Systems (units (unknown) date) unknown) (unknown) (no (unknown) (unknown) Emeka Robertson (units (unknown) date) unknown) (unknown) (no (unknown) (unknown) Sudarshan Calderon (units (u nknown) date) unknown) (unknown) (no (unknown) (unknown) S/P CABG x 3 (units (u nknown) date) () unknown) (unknown) (no (unknown) (unknown) S/P cervical (units (u nknown) date) spinal fusion unknown) (unknown) (no (unknown) (unknown) S/P lumbar fusion (units (unknown) date) unknown) (unknown) (no (unknown) (unknown) SARS-CoV-2 (PCR) (units (unknown) date) (Negative) unknown) (unknown) (no (unknown) (unknown) SARS-CoV-2 (PCR) (units (unknown) date) (Negative) unknown) (unknown) (no (unknown) (unknown) SARS-CoV-2 (PCR) (units (unknown) date) Negative unknown) (Negative) (unknown) (no (unknown) (unknown) SKIN: Denies rash, (units (unknown) date) skin lesions, or unknown) other (unknown) (no (unknown) (unknown) SKIN: No rash or (units (unknown) date) erythema of visible unknown) areas (unknown) (no (unknown) (unknown) Sagittal (units (unkno wn) date) unknown) (unknown) (no (unknown) (unknown) Salicylate Stat (units (unknown) date) unknown) (unknown) (no (unknown) (unknown) Salicylates (units (un known) date) (<20) mg/dL unknown) (unknown) (no (unknown) (unknown) Salicylates (units (un known) date) (<20) mg/dL unknown) (unknown) (no (unknown) (unknown) Salicylates < (units (unknown) date) 1.0 (<20) mg/dL unknown) (unknown) (no (unknown) (unknown) Signed By: (units (unk nown) date) unknown) (unknown) (no (unknown) (unknown) Sinuses:? (units (unkn own) date) Visualized sinuses unknown) redemonstrate wall thickening and mucoperiosteal (unknown) (no (unknown) (unknown) Skull and face:? (units (unknown) date) Calvarium and unknown) visualized facial bones appear intact, without (unknown) (no (unknown) (unknown) Smoking Status: (units (unknown) date) Former smoker unknown) (unknown) (no (unknown) (unknown) Smoking Status: (units (unknown) date) Former smoker unknown) (unknown) (no (unknown) (unknown) Social History (units (unknown) date) (Reviewed 12/08/21 unknown) @ 01:57 by Jung Dejesus DO) (unknown) (no (unknown) (unknown) Sodium (units (unkno wn) date) (137-145) mmol/L unknown) (unknown) (no (unknown) (unknown) Sodium (units (unkno wn) date) (137-145) mmol/L unknown) (unknown) (no (unknown) (unknown) Sodium 140 (units (u nknown) date) (137-145) mmol/L unknown) (unknown) (no (unknown) (unknown) Sodium Chloride (units (unknown) date) (Normal Saline unknown) 0.9%) 1,000 mls @ 150 mls/hr IV CONT BLOSSOM (unknown) (no (unknown) (unknown) Soft tissues:? (units (unknown) date) Prevertebral soft unknown) tissues are normal in thickness.? No (unknown) (no (unknown) (unknown) Source: patient, (units (unknown) date) family and EMS unknown) (unknown) (no (unknown) (unknown) Stated Complaint: (units (unknown) date) Back Pain unknown) (unknown) (no (unknown) (unknown) [id number]-[id number]-TnZ (units (unknown) date) Reductase AdvReac unknown) Mild WEAK Verified 11/28/21 15:33 (unknown) (no (unknown) (unknown) Substance Use (units ( unknown) date) Type: does not use unknown) (unknown) (no (unknown) (unknown) Sulfa (Sulfonamide (units (unknown) date) Allergy Mild RASH unknown) Verified 11/28/21 15:33 (unknown) (no (unknown) (unknown) Surgical History (units (unknown) date) (Reviewed 12/08/21 unknown) @ 01:57 by Jung Dejesus DO) (unknown) (no (unknown) (unknown) Andre Spear (units ( unknown) date) unknown) (unknown) (no (unknown) (unknown) TECHNIQUE:? (units (un known) date) unknown) (unknown) (no (unknown) (unknown) TSH (units (unkno wn) date) (0.47-4.68) uIU/mL unknown) (unknown) (no (unknown) (unknown) TSH (0.47-4.68) (units (unknown) date) uIU/mL unknown) (unknown) (no (unknown) (unknown) TSH 2.07 (units (unkn own) date) (0.47-4.68) uIU/mL unknown) (unknown) (no (unknown) (unknown) Telemetry Strips (units (unknown) date) unknown) (unknown) (no (unknown) (unknown) Temperature 97.4 (units (unknown) date) F L 12/07/21 20:23 unknown) (unknown) (no (unknown) (unknown) Temperature 97.8 (units (unknown) date) F unknown) (unknown) (no (unknown) (unknown) There is a small (units (unknown) date) right choroidal unknown) fissure cyst redemonstrated.? (unknown) (no (unknown) (unknown) There is mild (units ( unknown) date) cerebral volume unknown) loss, with resultant ventricular and sulcal (unknown) (no (unknown) (unknown) Thyroid (units (unkno wn) date) Stimulating Hormone unknown) Stat (unknown) (no (unknown) (unknown) Tibia/Fibula X-Ray (units (unknown) date) (Signed) unknown) (unknown) (no (unknown) (unknown) Time Seen by (units (u nknown) date) Provider: 12/07/21 unknown) 20:22 (unknown) (no (unknown) (unknown) Total Bilirubin (units (unknown) date) (0.2-1.3) mg/dL unknown) (unknown) (no (unknown) (unknown) Total Bilirubin (units (unknown) date) (0.2-1.3) mg/dL unknown) (unknown) (no (unknown) (unknown) Total Bilirubin (units (unknown) date) 0.9 (0.2-1.3) unknown) mg/dL (unknown) (no (unknown) (unknown) Total Protein (units ( unknown) date) (6.3-8.2) g/dL unknown) (unknown) (no (unknown) (unknown) Total Protein (units ( unknown) date) (6.3-8.2) g/dL unknown) (unknown) (no (unknown) (unknown) Total Protein (units ( unknown) date) 7.0 (6.3-8.2) unknown) g/dL (unknown) (no (unknown) (unknown) U Benzodiazepines (units (unknown) date) Scrn (Negative) unknown) (unknown) (no (unknown) (unknown) U Benzodiazepines (units (unknown) date) Scrn Positive H unknown) (Negative) (unknown) (no (unknown) (unknown) U Marijuana (THC) (units (unknown) date) Screen unknown) (Negative) (unknown) (no (unknown) (unknown) U Marijuana (THC) (units (unknown) date) Screen Negative unknown) (Negative) (unknown) (no (unknown) (unknown) U Methamphetamines (units (unknown) date) Scrn (Negative) unknown) (unknown) (no (unknown) (unknown) U Methamphetamines (units (unknown) date) Scrn Negative unknown) (Negative) (unknown) (no (unknown) (unknown) U Opiates 300ng/mL (units (unknown) date) cut (Negative) unknown) (unknown) (no (unknown) (unknown) U Opiates 300ng/mL (units (unknown) date) cut Positive H unknown) (Negative) (unknown) (no (unknown) (unknown) U Tricyclic (units (un known) date) Antidepress unknown) (Negative) (unknown) (no (unknown) (unknown) U Tricyclic (units (un known) date) Antidepress unknown) Negative (Negative) (unknown) (no (unknown) (unknown) Ur Amphetamines (units (unknown) date) Screen unknown) (Negative) (unknown) (no (unknown) (unknown) Ur Amphetamines (units (unknown) date) Screen Negative unknown) (Negative) (unknown) (no (unknown) (unknown) Ur Barbiturates (units (unknown) date) Screen unknown) (Negative) (unknown) (no (unknown) (unknown) Ur Barbiturates (units (unknown) date) Screen Negative unknown) (Negative) (unknown) (no (unknown) (unknown) Ur Culture (units (unk nown) date) Indicated? unknown) (unknown) (no (unknown) (unknown) Ur Culture (units (unk nown) date) Indicated? unknown) (unknown) (no (unknown) (unknown) Ur Culture (units (unk nown) date) Indicated? Cult unknown) not indicated (unknown) (no (unknown) (unknown) Ur Leukocyte (units (u nknown) date) Esterase unknown) (NEGATIVE) (unknown) (no (unknown) (unknown) Ur Leukocyte (units (u nknown) date) Esterase unknown) (NEGATIVE) (unknown) (no (unknown) (unknown) Ur Leukocyte (units (u nknown) date) Esterase unknown) Negative (NEGATIVE) (unknown) (no (unknown) (unknown) Ur MDMA Scrn (units (u nknown) date) (Ecstasy) unknown) (Negative) (unknown) (no (unknown) (unknown) Ur MDMA Scrn (units (u nknown) date) (Ecstasy) Negative unknown) (Negative) (unknown) (no (unknown) (unknown) Ur Oxycodone (units (u nknown) date) Screen unknown) (Negative) (unknown) (no (unknown) (unknown) Ur Oxycodone (units (u nknown) date) Screen Negative unknown) (Negative) (unknown) (no (unknown) (unknown) Ur Phencyclidine (units (unknown) date) Scrn (Negative) unknown) (unknown) (no (unknown) (unknown) Ur Phencyclidine (units (unknown) date) Scrn Negative unknown) (Negative) (unknown) (no (unknown) (unknown) Ur Specific (units (un known) date) Falcon unknown) (1.000-1.035) (unknown) (no (unknown) (unknown) Ur Specific (units (un known) date) Falcon unknown) (1.000-1.035) (unknown) (no (unknown) (unknown) Ur Specific (units (un known) date) Falcon 1.020 unknown) (1.000-1.035) (unknown) (no (unknown) (unknown) Ur Squamous Epith (units (unknown) date) Cells (0-5/HPF) unknown) (unknown) (no (unknown) (unknown) Ur Squamous Epith (units (unknown) date) Cells (0-5/HPF) unknown) (unknown) (no (unknown) (unknown) Ur Squamous Epith (units (unknown) date) Cells 0-1 /hpf unknown) (0-5/HPF) (unknown) (no (unknown) (unknown) Urinalysis and (units (unknown) date) Microscopic Stat unknown) (unknown) (no (unknown) (unknown) Urine Appearance (units (unknown) date) unknown) (unknown) (no (unknown) (unknown) Urine Appearance (units (unknown) date) unknown) (unknown) (no (unknown) (unknown) Urine Appearance (units (unknown) date) Clear unknown) (unknown) (no (unknown) (unknown) Urine Bacteria (units (unknown) date) (None) unknown) (unknown) (no (unknown) (unknown) Urine Bacteria (units (unknown) date) (None) unknown) (unknown) (no (unknown) (unknown) Urine Bacteria (units (unknown) date) None seen (None) unknown) (unknown) (no (unknown) (unknown) Urine Bilirubin (units (unknown) date) (NEGATIVE) unknown) (unknown) (no (unknown) (unknown) Urine Bilirubin (units (unknown) date) (NEGATIVE) unknown) (unknown) (no (unknown) (unknown) Urine Bilirubin (units (unknown) date) Negative unknown) (NEGATIVE) (unknown) (no (unknown) (unknown) Urine Cocaine (units ( unknown) date) Screen unknown) (Negative) (unknown) (no (unknown) (unknown) Urine Cocaine (units ( unknown) date) Screen Negative unknown) (Negative) (unknown) (no (unknown) (unknown) Urine Color (units (un known) date) unknown) (unknown) (no (unknown) (unknown) Urine Color (units (un known) date) unknown) (unknown) (no (unknown) (unknown) Urine Color (units (un known) date) Yellow unknown) (unknown) (no (unknown) (unknown) Urine Drug Screen, (units (unknown) date) Rapid Stat unknown) (unknown) (no (unknown) (unknown) Urine Glucose (UA) (units (unknown) date) (Negative) unknown) g/dL (unknown) (no (unknown) (unknown) Urine Glucose (UA) (units (unknown) date) (Negative) g/dL unknown) (unknown) (no (unknown) (unknown) Urine Glucose (UA) (units (unknown) date) Negative unknown) (Negative) g/dL (unknown) (no (unknown) (unknown) Urine Ketones (units ( unknown) date) (NEGATIVE) unknown) (unknown) (no (unknown) (unknown) Urine Ketones (units ( unknown) date) (NEGATIVE) unknown) (unknown) (no (unknown) (unknown) Urine Ketones (units ( unknown) date) Trace H (NEGATIVE) unknown) (unknown) (no (unknown) (unknown) Urine Methadone (units (unknown) date) Screen unknown) (Negative) (unknown) (no (unknown) (unknown) Urine Methadone (units (unknown) date) Screen Negative unknown) (Negative) (unknown) (no (unknown) (unknown) Urine Nitrate (units ( unknown) date) (Negative) unknown) (unknown) (no (unknown) (unknown) Urine Nitrate (units ( unknown) date) (Negative) unknown) (unknown) (no (unknown) (unknown) Urine Nitrate (units ( unknown) date) Negative unknown) (Negative) (unknown) (no (unknown) (unknown) Urine Occult Blood (units (unknown) date) (Negative) unknown) (unknown) (no (unknown) (unknown) Urine Occult Blood (units (unknown) date) (Negative) unknown) (unknown) (no (unknown) (unknown) Urine Occult Blood (units (unknown) date) Negative unknown) (Negative) (unknown) (no (unknown) (unknown) Urine Protein (units ( unknown) date) (Negative) unknown) (unknown) (no (unknown) (unknown) Urine Protein (units ( unknown) date) (Negative) unknown) (unknown) (no (unknown) (unknown) Urine Protein (units ( unknown) date) Negative unknown) (Negative) (unknown) (no (unknown) (unknown) Urine RBC (units (unkn own) date) (0-5/HPF) unknown) (unknown) (no (unknown) (unknown) Urine RBC (units (unkn own) date) (0-5/HPF) unknown) (unknown) (no (unknown) (unknown) Urine RBC None (units (unknown) date) seen (0-5/HPF) unknown) (unknown) (no (unknown) (unknown) Urine Urobilinogen (units (unknown) date) (0.2) E.U./dL unknown) (unknown) (no (unknown) (unknown) Urine Urobilinogen (units (unknown) date) (0.2) E.U./dL unknown) (unknown) (no (unknown) (unknown) Urine Urobilinogen (units (unknown) date) 0.2 (0.2) unknown) E.U./dL (unknown) (no (unknown) (unknown) Urine WBC (units (unkn own) date) (0-5/HPF) unknown) (unknown) (no (unknown) (unknown) Urine WBC (units (unkn own) date) (0-5/HPF) unknown) (unknown) (no (unknown) (unknown) Urine WBC None (units (unknown) date) seen (0-5/HPF) unknown) (unknown) (no (unknown) (unknown) Urine pH (units (unkno wn) date) (4.5-8.0) unknown) (unknown) (no (unknown) (unknown) Urine pH (units (unkno wn) date) (4.5-8.0) unknown) (unknown) (no (unknown) (unknown) Urine pH 5.0 (units (unknown) date) (4.5-8.0) unknown) (unknown) (no (unknown) (unknown) Vascular (units (unkno wn) date) Ultrasound (Signed) unknown) (unknown) (no (unknown) (unknown) Ventricular (units (un known) date) bigeminy unknown) (unknown) (no (unknown) (unknown) Vital Signs (units (un known) date) unknown) (unknown) (no (unknown) (unknown) Vital signs: (units (u nknown) date) unknown) (unknown) (no (unknown) (unknown) Charles,Lexx (units (u nknown) date) unknown) (unknown) (no (unknown) (unknown) [Embedded Image (units (unknown) date) Not Available] unknown) (unknown) (no (unknown) (unknown) [[id number] (units (unknown) date) REDUCTASE unknown) (unknown) (no (unknown) (unknown) [SULFA (units (unkno wn) date) (SULFONAMIDE unknown) (unknown) (no (unknown) (unknown) acetaminophen 300 (units (unknown) date) mg-codeine 30 mg 1 unknown) tab PO Q6HR PRN 10/08/21 10/08/21 (unknown) (no (unknown) (unknown) acetaminophen 325 (units (unknown) date) mg tablet 650 mg PO unknown) Q6H PRN #60 tab 11/06/20 (unknown) (no (unknown) (unknown) albuterol sulfate (units (unknown) date) 1.25 mg/3 mL 2.5 mg unknown) (6 mL) INHALATION QID #90 ml 11/28/21 (unknown) (no (unknown) (unknown) alcohol intake (units (unknown) date) frequency: unknown) holidays/special occasions only (unknown) (no (unknown) (unknown) alcohol intake: (units (unknown) date) current unknown) (unknown) (no (unknown) (unknown) and coronal (units (un known) date) reformats were then unknown) constructed.? For radiation dose reduction, the (unknown) (no (unknown) (unknown) and shape.? (units (un known) date) unknown) (unknown) (no (unknown) (unknown) appears (units (unkno wn) date) preserved.? There unknown) is intracranial internal carotid artery (unknown) (no (unknown) (unknown) approximately 0.2 (units (unknown) date) cm. unknown) (unknown) (no (unknown) (unknown) approximately 0.4 (units (unknown) date) cm and minimal unknown) anterolisthesis at C3-C4 measuring (unknown) (no (unknown) (unknown) arthropathy (units (un known) date) throughout the unknown) cervical spine.? Visualized superior ribs are (unknown) (no (unknown) (unknown) atherosclerosis.? (units (unknown) date) unknown) (unknown) (no (unknown) (unknown) benzonatate 100 mg (units (unknown) date) capsule 100 mg PO unknown) TID PRN #14 cap 03/05/21 (unknown) (no (unknown) (unknown) buprenorphine (units ( unknown) date) [BUPRENORPHINE] unknown) AdvReac Mild NAUSEA, Verified 11/28/21 15:33 (unknown) (no (unknown) (unknown) buprenorphine, (units (unknown) date) hyoscyamine, unknown) [id number]-OWB-TbV Reductase Inhibitor, diazepam (unknown) (no (unknown) (unknown) cefdinir 300 mg (units (unknown) date) capsule 300 mg PO unknown) BID #20 cap 10/09/21 (unknown) (no (unknown) (unknown) celecoxib (units (unkn own) date) [CELECOXIB] Allergy unknown) Mild SWELLING Verified 11/28/21 15:33 (unknown) (no (unknown) (unknown) cetirizine 10 mg (units (unknown) date) capsule (Zyrtec) 10 unknown) mg PO DAILY 05/22/19 10/08/21 (unknown) (no (unknown) (unknown) chronic back pain, (units (unknown) date) ataxia, AFib, COPD unknown) presents for evaluation of a witnessed (unknown) (no (unknown) (unknown) chronic sinusitis. (units (unknown) date) unknown) (unknown) (no (unknown) (unknown) constipation, (units ( unknown) date) melena. unknown) (unknown) (no (unknown) (unknown) consumed a large (units (unknown) date) amount of alcohol unknown) tonight in addition to many other medications (unknown) (no (unknown) (unknown) contusion, (units (unk nown) date) laceration, unknown) hematoma or evidence of depressed skull fracture (unknown) (no (unknown) (unknown) degeneration also (units (unknown) date) demonstrated at unknown) C2-C3 and C3-C4.? There is multilevel moderate (unknown) (no (unknown) (unknown) degenerative disc (units (unknown) date) disease within the unknown) visualized upper thoracic spine.? Mild disc (unknown) (no (unknown) (unknown) diazepam [From (units (unknown) date) Valium] AdvReac unknown) Confusion Verified 11/28/21 15:33 (unknown) (no (unknown) (unknown) diclofenac sodium (units (unknown) date) 1 % topical gel 2 g unknown) TOPICAL QID #100 g 11/19/21 (unknown) (no (unknown) (unknown) difficult time (units ( unknown) date) ambulating and is unknown) unsafe to discharge at this time. His has (unknown) (no (unknown) (unknown) ferrous sulfate (units (unknown) date) 325 mg (65 mg 325 unknown) mg PO DAILY 10/19/19 10/08/21 (unknown) (no (unknown) (unknown) fluticasone (units (un known) date) propionate 50 1 unknown) spray INTRANASAL DAILY PRN #0 11/02/17 10/08/21 (unknown) (no (unknown) (unknown) following (units (unkn own) date) unknown) (unknown) (no (unknown) (unknown) furosemide 40 mg (units (unknown) date) tablet (Lasix) 40 unknown) mg PO DAILY 10/08/21 10/08/21 (unknown) (no (unknown) (unknown) glipizide 2.5 mg (units (unknown) date) tablet, extended unknown) 2.5 mg PO DAILY 10/08/21 10/08/21 (unknown) (no (unknown) (unknown) ground level fall. (units (unknown) date) He stumbled and unknown) fell forward, striking his nose. There was (unknown) (no (unknown) (unknown) hand (units (unkno wn) date) unknown) (unknown) (no (unknown) (unknown) hematomas.? No (units (unknown) date) apical unknown) pneumothoraces.? (unknown) (no (unknown) (unknown) household members: (units (unknown) date) spouse unknown) (unknown) (no (unknown) (unknown) hyoscyamine (units (un known) date) [HYOSCYAMINE] unknown) AdvReac Mild LEG Verified 11/28/21 15:33 (unknown) (no (unknown) (unknown) intact.? (units (unkno wn) date) unknown) (unknown) (no (unknown) (unknown) iron) (units (unkno wn) date) tablet,delayed unknown) release (unknown) (no (unknown) (unknown) latex [LATEX] (units ( unknown) date) Allergy Mild RASH unknown) Verified 11/28/21 15:33 (unknown) (no (unknown) (unknown) lesions.? (units (unkn own) date) unknown) (unknown) (no (unknown) (unknown) levalbuterol HCl (units (unknown) date) 1.25 mg/3 mL 3 ml unknown) INHALATION Q6H PRN 10/16/18 10/08/21 (unknown) (no (unknown) (unknown) levalbuterol (units (u nknown) date) tartrate 45 1 puff unknown) INHALATION Q4-6H PRN #15 06/22/18 (unknown) (no (unknown) (unknown) mastoid air cells (units (unknown) date) are clear. unknown) (unknown) (no (unknown) (unknown) mcg/actuation (units ( unknown) date) aerosol inhaler unknown) gram (unknown) (no (unknown) (unknown) mcg/actuation (units ( unknown) date) nasal unknown) (unknown) (no (unknown) (unknown) measuring (units (unkn own) date) unknown) (unknown) (no (unknown) (unknown) meclizine 25 mg (units (unknown) date) tablet 25 mg PO QID unknown) PRN #30 tab 10/09/21 (unknown) (no (unknown) (unknown) methocarbamol 500 (units (unknown) date) mg tablet 500 mg PO unknown) Q8H PRN #14 tab 11/19/21 (unknown) (no (unknown) (unknown) metoprolol (units (unk nown) date) tartrate 100 mg unknown) tablet 100 mg PO BID 10/16/18 10/08/21 (unknown) (no (unknown) (unknown) mg tablet (units (unkn own) date) (Percocet) unknown) (unknown) (no (unknown) (unknown) mild distress. (units (unknown) date) GCS 15, smells of unknown) alcohol and slurring his words (unknown) (no (unknown) (unknown) moderate (units (unkno wn) date) unknown) (unknown) (no (unknown) (unknown) multiple levels as (units (unknown) date) described. unknown) (unknown) (no (unknown) (unknown) multivitamin (units (u nknown) date) (Multiple Vitamins) unknown) 1 tab PO DAILY #0 12/20/16 10/08/21 (unknown) (no (unknown) (unknown) no loss of (units (unk nown) date) consciousness and unknown) he has had no nausea or vomiting. He denies any (unknown) (no (unknown) (unknown) other injuries (units (unknown) date) such as neck, back unknown) or extremities. His states that he (unknown) (no (unknown) (unknown) oxycodone 5 mg (units (unknown) date) tablet 10 mg PO unknown) Q4-5H PRN #60 tab 11/06/20 (unknown) (no (unknown) (unknown) oxycodone-acetamin (units (unknown) date) ophen 5 mg-325 1 unknown) tab PO Q8H PRN #10 tab 11/19/21 (unknown) (no (unknown) (unknown) oxycodone-acetamin (units (unknown) date) ophen 5 mg-325 1 unknown) tab PO TID PRN #10 tab 11/19/21 (unknown) (no (unknown) (unknown) paravertebral (units ( unknown) date) unknown) (unknown) (no (unknown) (unknown) patient (units (unkno wn) date) unknown) (unknown) (no (unknown) (unknown) prednisone 20 mg (units (unknown) date) tablet 20 mg PO unknown) DAILY #32 tab 11/28/21 (unknown) (no (unknown) (unknown) prednisone 50 mg (units (unknown) date) tablet 50 mg PO unknown) DAILY #5 tab 11/19/21 (unknown) (no (unknown) (unknown) prominence.? (units (u nknown) date) unknown) (unknown) (no (unknown) (unknown) release 24 hr (units ( unknown) date) (Glucotrol XL) unknown) (unknown) (no (unknown) (unknown) seizures, (units (unkn own) date) incoordination. unknown) (unknown) (no (unknown) (unknown) sequelae of (units (un known) date) unknown) (unknown) (no (unknown) (unknown) sinusitis.? The (units (unknown) date) unknown) (unknown) (no (unknown) (unknown) size.? (units (unkno wn) date) unknown) (unknown) (no (unknown) (unknown) solution for (units (u nknown) date) nebulization unknown) (unknown) (no (unknown) (unknown) solution for (units (u nknown) date) nebulization unknown) (unknown) (no (unknown) (unknown) spray,suspension (units (unknown) date) unknown) (unknown) (no (unknown) (unknown) study.? There are (units (unknown) date) postsurgical unknown) changes also redemonstrated status post prior (unknown) (no (unknown) (unknown) substance use (units ( unknown) date) type: does not use unknown) (unknown) (no (unknown) (unknown) suspicious (units (unk nown) date) unknown) (unknown) (no (unknown) (unknown) tablet (units (unkno wn) date) unknown) (unknown) (no (unknown) (unknown) that he would (units ( unknown) date) routinely take. He unknown) is activated as a modified trauma. (unknown) (no (unknown) (unknown) the prior (units (unkn own) date) unknown) (unknown) (no (unknown) (unknown) thickening (units (unk nown) date) unknown) (unknown) (no (unknown) (unknown) to the (units (unkno wn) date) unknown) (unknown) (no (unknown) (unknown) trazodone 100 mg (units (unknown) date) tablet 400 tab PO unknown) BEDTIME 12/09/17 10/08/21 (unknown) (no (unknown) (unknown) varenicline (units (un known) date) [VARENICLINE] unknown) AdvReac Severe Paranoia Verified 11/28/21 15:33 (unknown) (no (unknown) (unknown) vertex, with (units (u nknown) date) coronal and unknown) sagittal reformats.? For radiation dose reduction, the (unknown) (no (unknown) (unknown) was used:? (units (unk nown) date) automated exposure unknown) control, adjustment of mA and/or kV according to (unknown) (no (unknown) (unknown) within the (units (unk nown) date) visualized left unknown) maxillary sinus suggesting sequelae of chronic (unknown) (no (unknown) (unknown) without erythema, (units (unknown) date) tonsillar unknown) hypertrophy or exudate. Airway patent. Result panel 36 (unknown) (no (unknown) (unknown) (no value) (units (unk nown) date) unknown) (unknown) (no (unknown) (unknown) Radiologist's (units ( unknown) date) Impression: unknown) (unknown) (no (unknown) (unknown) (no value) (units (unk nown) date) unknown) (unknown) (no (unknown) (unknown) Date of Service: (units (unknown) date) 12/07/21 unknown) (unknown) (no (unknown) (unknown) (no value) (units (unk nown) date) unknown) (unknown) (no (unknown) (unknown) 12/07/21 23:05 (units (unknown) date) unknown) (unknown) (no (unknown) (unknown) 1 puff INHALATION (units (unknown) date) Q4-6H PRN (Reason: unknown) shortness of breath or wheezing) Qty: 15 (unknown) (no (unknown) (unknown) 1 spray Intranasal (units (unknown) date) DAILY PRN (Reason: unknown) Allergy Symptoms) Qty: 0 0RF (unknown) (no (unknown) (unknown) 1 tab PO DAILY (units (unknown) date) Qty: 0 0RF unknown) (unknown) (no (unknown) (unknown) 1 tab PO Q6HR PRN (units (unknown) date) (Reason: Back Pain) unknown) 0RF (unknown) (no (unknown) (unknown) 1 tab PO Q8H PRN (units (unknown) date) (Reason: pain) Qty: unknown) 10 0RF (unknown) (no (unknown) (unknown) 1 tab PO TID PRN (units (unknown) date) (Reason: pain) Qty: unknown) 10 0RF (unknown) (no (unknown) (unknown) 10 mg PO DAILY 0RF (units (unknown) date) unknown) (unknown) (no (unknown) (unknown) 10 mg PO Q4-5H PRN (units (unknown) date) (Reason: Pain, unknown) Severe (7-10)) Qty: 60 0RF (unknown) (no (unknown) (unknown) 100 mg PO BID 0RF (units (unknown) date) unknown) (unknown) (no (unknown) (unknown) 100 mg PO TID PRN (units (unknown) date) (Reason: cough) unknown) Qty: 14 0RF (unknown) (no (unknown) (unknown) [address] (units (unknown) date) unknown) (unknown) (no (unknown) (unknown) 2 g topical QID (units (unknown) date) Qty: 100 0RF unknown) (unknown) (no (unknown) (unknown) 2.5 mg PO DAILY (units (unknown) date) 0RF unknown) (unknown) (no (unknown) (unknown) 2.5 mg inhalation (units (unknown) date) QID Qty: 90 1RF unknown) (unknown) (no (unknown) (unknown) 20 mg PO DAILY (units (unknown) date) Qty: 32 0RF unknown) (unknown) (no (unknown) (unknown) 25 mg PO QID PRN (units (unknown) date) (Reason: vertigo) unknown) Qty: 30 0RF (unknown) (no (unknown) (unknown) 3 ml Inhalation (units (unknown) date) Q6H PRN (Reason: unknown) Shortness Of Breath) 0RF (unknown) (no (unknown) (unknown) 300 mg PO BID Qty: (units (unknown) date) 20 0RF unknown) (unknown) (no (unknown) (unknown) 325 mg PO DAILY (units (unknown) date) 0RF unknown) (unknown) (no (unknown) (unknown) 40 mg PO DAILY 0RF (units (unknown) date) unknown) (unknown) (no (unknown) (unknown) 400 tab PO BEDTIME (units (unknown) date) 0RF unknown) (unknown) (no (unknown) (unknown) 50 mg PO DAILY (units (unknown) date) Qty: 5 0RF unknown) (unknown) (no (unknown) (unknown) 500 mg PO Q8H PRN (units (unknown) date) (Reason: muscle unknown) spasm) Qty: 14 0RF (unknown) (no (unknown) (unknown) 60mg x 5 day, 40mg (units (unknown) date) x 5 day, 20mg x5 unknown) day, 10mg x 4 days (unknown) (no (unknown) (unknown) 650 mg PO Q6H PRN (units (unknown) date) (Reason: pain) Qty: unknown) 60 0RF (unknown) (no (unknown) (unknown) ANXIETY, (units (unkno wn) date) unknown) (unknown) (no (unknown) (unknown) Admin: 12/07/21 (units (unknown) date) 23:25 Dose: 150 unknown) mls/hr (unknown) (no (unknown) (unknown) Allergies (units (unkn own) date) unknown) (unknown) (no (unknown) (unknown) [place] (units ( unknown) date) [id number] unknown) (unknown) (no (unknown) (unknown) CT Scan Report (units (unknown) date) unknown) (unknown) (no (unknown) (unknown) Close (units (unkno wn) date) unknown) (unknown) (no (unknown) (unknown) DIZZINESS (units (unkn own) date) unknown) (unknown) (no (unknown) (unknown) Documented by: (units (unknown) date) unknown) (unknown) (no (unknown) (unknown) Documented by: (units (unknown) date) [email or web address] unknown) (unknown) (no (unknown) (unknown) Documented by: (units (unknown) date) RLAZANI unknown) (unknown) (no (unknown) (unknown) ED Orders (units (unkn own) date) unknown) (unknown) (no (unknown) (unknown) EXPOSURE (units (unkno wn) date) unknown) (unknown) (no (unknown) (unknown) Emergency Report (units (unknown) date) unknown) (unknown) (no (unknown) (unknown) Home Medications (units (unknown) date) unknown) (unknown) (no (unknown) (unknown) INHALE 1 VIAL PER (units (unknown) date) NEBULIZER EVERY 6 unknown) HOURS NEEDED (unknown) (no (unknown) (unknown) [facility] (units (unknown) date) unknown) (unknown) (no (unknown) (unknown) [facility] (units (unknown) date) [address] unknown) [place] [id number] (unknown) (no (unknown) (unknown) JERKING, (units (unkno wn) date) unknown) (unknown) (no (unknown) (unknown) Lab Results (units (un known) date) unknown) (unknown) (no (unknown) (unknown) Label Comments: (units (unknown) date) unknown) (unknown) (no (unknown) (unknown) Last Admin: (units (un known) date) 12/08/21 01:35 unknown) Dose: 1 tab (unknown) (no (unknown) (unknown) Last Admin: (units (un known) date) 12/08/21 02:34 unknown) Dose: 4 mg (unknown) (no (unknown) (unknown) Last Admin: (units (un known) date) 12/08/21 04:04 unknown) Dose: 0.5 mg (unknown) (no (unknown) (unknown) Last Admin: (units (un known) date) 12/08/21 05:53 unknown) Dose: 4 mg (unknown) (no (unknown) (unknown) Last Admin: (units (un known) date) 12/08/21 05:53 unknown) Dose: 40 mg (unknown) (no (unknown) (unknown) Last Infusion: (units (unknown) date) 12/08/21 04:00 unknown) Dose: 0 mls/hr (unknown) (no (unknown) (unknown) Launch?Image (units (u nknown) date) unknown) (unknown) (no (unknown) (unknown) MINUTES (units (unkno wn) date) unknown) (unknown) (no (unknown) (unknown) NAUSEA W/I (units (unk nown) date) unknown) (unknown) (no (unknown) (unknown) Point of Care (units ( unknown) date) Testing unknown) (unknown) (no (unknown) (unknown) Previous Rx's (units ( unknown) date) unknown) (unknown) (no (unknown) (unknown) Rx Instructions: (units (unknown) date) unknown) (unknown) (no (unknown) (unknown) Signed (units (unkno wn) date) unknown) (unknown) (no (unknown) (unknown) Spouse Milana (units (u nknown) date) called + reported unknown) patient not taking it regularly. (unknown) (no (unknown) (unknown) Stop: 12/08/21 (units (unknown) date) 01:26 unknown) (unknown) (no (unknown) (unknown) Stop: 12/08/21 (units (unknown) date) 02:32 unknown) (unknown) (no (unknown) (unknown) Stop: 12/08/21 (units (unknown) date) 04:01 unknown) (unknown) (no (unknown) (unknown) Stop: 12/08/21 (units (unknown) date) 05:47 unknown) (unknown) (no (unknown) (unknown) Stop: 12/08/21 (units (unknown) date) 05:50 unknown) (unknown) (no (unknown) (unknown) Vital Signs - 8 hr (units (unknown) date) unknown) (unknown) (no (unknown) (unknown) W/EXTENDED (units (unk nown) date) unknown) (unknown) (no (unknown) (unknown) apply to single (units (unknown) date) elbow, wrist or unknown) hand; for hand includes palm/fingers/back of (unknown) (no (unknown) (unknown) patient states (units (unknown) date) weaning off. unknown) (unknown) (no (unknown) (unknown) take 1 tablet by (units (unknown) date) mouth once daily unknown) (unknown) (no (unknown) (unknown) take 1 tablet by (units (unknown) date) mouth twice a day unknown) (unknown) (no (unknown) (unknown) (no value) (units (unk nown) date) unknown) (unknown) (no (unknown) (unknown) 12/07/21 12/07/21 (units (unknown) date) 12/07/21 unknown) Range/Units (unknown) (no (unknown) (unknown) 12/07/21 12/08/21 (units (unknown) date) Range/Units unknown) (unknown) (no (unknown) (unknown) 23:05 23:05 23:05 (units (unknown) date) unknown) (unknown) (no (unknown) (unknown) 23:05 23:44 23:57 (units (unknown) date) unknown) (unknown) (no (unknown) (unknown) 23:57 01:33 (units (un known) date) unknown) (unknown) (no (unknown) (unknown) Zyrtec 10 mg (units (u nknown) date) Capsule unknown) (unknown) (no (unknown) (unknown) acetaminophen (units ( unknown) date) [Athenol] 325 mg unknown) tablet (unknown) (no (unknown) (unknown) acetaminophen-code (units (unknown) date) ine 300-30 mg unknown) tablet (unknown) (no (unknown) (unknown) albuterol sulfate (units (unknown) date) 1.25 mg/3 mL unknown) solution for nebulization (unknown) (no (unknown) (unknown) benzonatate (units (un known) date) [Tessalon Perles] unknown) 100 mg capsule (unknown) (no (unknown) (unknown) cefdinir 300 mg (units (unknown) date) capsule unknown) (unknown) (no (unknown) (unknown) diclofenac sodium (units (unknown) date) 1 % gel unknown) (unknown) (no (unknown) (unknown) ferrous sulfate (units (unknown) date) 325 mg (65 mg iron) unknown) tablet,delayed release (DR/EC) (unknown) (no (unknown) (unknown) fluticasone (units (un known) date) propionate 16 GM unknown) spray,suspension (unknown) (no (unknown) (unknown) furosemide [Lasix] (units (unknown) date) 40 mg tablet unknown) (unknown) (no (unknown) (unknown) glipizide (units (unkn own) date) [Glucotrol XL] 2.5 unknown) mg tablet extended release 24 hr (unknown) (no (unknown) (unknown) levalbuterol HCl (units (unknown) date) 1.25 mg/3 mL unknown) solution for nebulization (unknown) (no (unknown) (unknown) levalbuterol (units (u nknown) date) tartrate [Xopenex unknown) HFA] 45 mcg/actuation HFA aerosol inhaler (unknown) (no (unknown) (unknown) meclizine 25 mg (units (unknown) date) tablet unknown) (unknown) (no (unknown) (unknown) methocarbamol 500 (units (unknown) date) mg tablet unknown) (unknown) (no (unknown) (unknown) metoprolol (units (unk nown) date) tartrate 100 mg unknown) tablet (unknown) (no (unknown) (unknown) multivitamin (units (u nknown) date) [Multiple Vitamins] unknown) 1 EACH tablet (unknown) (no (unknown) (unknown) oxycodone 5 mg (units (unknown) date) Tablet unknown) (unknown) (no (unknown) (unknown) oxycodone-acetamin (units (unknown) date) ophen [Percocet] unknown) 5-325 mg tablet (unknown) (no (unknown) (unknown) prednisone 20 mg (units (unknown) date) tablet unknown) (unknown) (no (unknown) (unknown) prednisone 50 mg (units (unknown) date) tablet unknown) (unknown) (no (unknown) (unknown) trazodone 100 mg (units (unknown) date) tablet unknown) (unknown) (no (unknown) (unknown) 12/07/21 (units (unkno wn) date) unknown) (unknown) (no (unknown) (unknown) Medication (units (unk nown) date) Instructions unknown) Recorded (unknown) (no (unknown) (unknown) Medication (units (unk nown) date) Instructions unknown) Recorded Confirmed (unknown) (no (unknown) (unknown) been contacted and (units (unknown) date) she will be able to unknown) come pick him up in the morning. (unknown) (no (unknown) (unknown) facet (units (unkno wn) date) unknown) (unknown) (no (unknown) (unknown) junction (units (unkno wn) date) unknown) (unknown) (no (unknown) (unknown) of (units (unkno wn) date) unknown) (unknown) (no (unknown) (unknown) rales, or rhonchi. (units (unknown) date) unknown) (unknown) (no (unknown) (unknown) (Athenol) (units (unkn own) date) unknown) (unknown) (no (unknown) (unknown) (More??) (units (unkno wn) date) unknown) (unknown) (no (unknown) (unknown) (Tessalon Perles) (units (unknown) date) unknown) (unknown) (no (unknown) (unknown) (Xopenex HFA) (units ( unknown) date) unknown) (unknown) (no (unknown) (unknown) - (units (unkno wn) date) unknown) (unknown) (no (unknown) (unknown) [phone] (units (unkn own) date) unknown) (unknown) (no (unknown) (unknown) 08/11/20 (units (unkno wn) date) unknown) (unknown) (no (unknown) (unknown) 08/16/20 (units (unkno wn) date) unknown) (unknown) (no (unknown) (unknown) 08/28/20 (units (unkno wn) date) unknown) (unknown) (no (unknown) (unknown) 09/15/21 (units (unkno wn) date) unknown) (unknown) (no (unknown) (unknown) 10/07/21 (units (unkno wn) date) unknown) (unknown) (no (unknown) (unknown) 10/08/21 (units (unkno wn) date) unknown) (unknown) (no (unknown) (unknown) 10/31/20 (units (unkno wn) date) unknown) (unknown) (no (unknown) (unknown) 11/04/20 (units (unkno wn) date) unknown) (unknown) (no (unknown) (unknown) 11/07/20 (units (unkno wn) date) unknown) (unknown) (no (unknown) (unknown) 11/19/21 (units (unkno wn) date) unknown) (unknown) (no (unknown) (unknown) 11/22/20 (units (unkno wn) date) unknown) (unknown) (no (unknown) (unknown) 11/28/21 (units (unkno wn) date) unknown) (unknown) (no (unknown) (unknown) 12/07/21 (units (unkno wn) date) unknown) (unknown) (no (unknown) (unknown) 12/07/21 23:05 (units (unknown) date) unknown) (unknown) (no (unknown) (unknown) 12/07/21 23:21 (units (unknown) date) unknown) (unknown) (no (unknown) (unknown) 12/07/21 23:44 (units (unknown) date) unknown) (unknown) (no (unknown) (unknown) 12/07/21 23:57 (units (unknown) date) unknown) (unknown) (no (unknown) (unknown) 12/08/21 03:22 (units (unknown) date) unknown) (unknown) (no (unknown) (unknown) 12/28/20 (units (unkno wn) date) unknown) (unknown) (no (unknown) (unknown) 05:37 (units (unkno wn) date) unknown) (unknown) (no (unknown) (unknown) 03/05/21 (units (unkno wn) date) unknown) (unknown) (no (unknown) (unknown) 04/16/21 (units (unkno wn) date) unknown) (unknown) (no (unknown) (unknown) 0RF (units (unkno wn) date) unknown) (unknown) (no (unknown) (unknown) 1. No acute (units (un known) date) intracranial unknown) abnormality. (unknown) (no (unknown) (unknown) 1.? No acute (units (u nknown) date) fracture or unknown) subluxation. (unknown) (no (unknown) (unknown) 12 point review of (units (unknown) date) systems is negative unknown) except for those stated above (unknown) (no (unknown) (unknown) 07/18/20 (units (unkno wn) date) unknown) (unknown) (no (unknown) (unknown) 2. Bony remodeling (units (unknown) date) in the left unknown) maxillary sinus redemonstrated consistent with (unknown) (no (unknown) (unknown) 2. Postsurgical (units (unknown) date) changes unknown) redemonstrated throughout the cervical spine with fusion (unknown) (no (unknown) (unknown) 23:17 12/08/21 (units (unknown) date) unknown) (unknown) (no (unknown) (unknown) 3. Mild cerebral (units (unknown) date) volume loss.? 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 (units (unkno wn) date) unknown) (unknown) (no (unknown) (unknown) ? (units (unkno wn) date) unknown) (unknown) (no (unknown) (unknown) ?Minimal (units (unkno wn) date) anterolisthesis unknown) also demonstrated at T1-T2.? Findings are similar to (unknown) (no (unknown) (unknown) ACDF at (units (unkno wn) date) unknown) (unknown) (no (unknown) (unknown) ALT (<50) (units ( unknown) date) IU/L unknown) (unknown) (no (unknown) (unknown) ALT (<50) IU/L (units (unknown) date) unknown) (unknown) (no (unknown) (unknown) ALT 31 (<50) (units (unknown) date) IU/L unknown) (unknown) (no (unknown) (unknown) ANTIBIOTICS)] (units ( unknown) date) unknown) (unknown) (no (unknown) (unknown) AST (17-59) (units (unknown) date) IU/L unknown) (unknown) (no (unknown) (unknown) AST (17-59) (units (unknown) date) IU/L unknown) (unknown) (no (unknown) (unknown) AST 32 (17-59) (units (unknown) date) IU/L unknown) (unknown) (no (unknown) (unknown) Accession Number: (units (unknown) date) [id number] ?? unknown) (unknown) (no (unknown) (unknown) Accession Number: (units (unknown) date) [id number] ?? unknown) (unknown) (no (unknown) (unknown) Acct:[id number] (units (unknown) date) unknown) (unknown) (no (unknown) (unknown) Acetaminophen (units ( unknown) date) (10-30) ug/mL unknown) (unknown) (no (unknown) (unknown) Acetaminophen (units ( unknown) date) (10-30) ug/mL unknown) (unknown) (no (unknown) (unknown) Acetaminophen < (units (unknown) date) 10 (10-30) ug/mL unknown) (unknown) (no (unknown) (unknown) Acetaminophen Stat (units (unknown) date) unknown) (unknown) (no (unknown) (unknown) Acetaminophen/Code (units (unknown) date) ine Phosphate unknown) (Codeine/Acetaminop hen 30/300 Tablet) 1 tab PO (unknown) (no (unknown) (unknown) Achalasia (units (unkn own) date) unknown) (unknown) (no (unknown) (unknown) Age/Sex: 76 / M (units (unknown) date) unknown) (unknown) (no (unknown) (unknown) Age/Sex: 76 / M (units (unknown) date) unknown) (unknown) (no (unknown) (unknown) Albumin (units (unkno wn) date) (3.5-5.0) g/dL unknown) (unknown) (no (unknown) (unknown) Albumin (units (unkno wn) date) (3.5-5.0) g/dL unknown) (unknown) (no (unknown) (unknown) Albumin 4.1 (units ( unknown) date) (3.5-5.0) g/dL unknown) (unknown) (no (unknown) (unknown) Albumin/Globulin (units (unknown) date) Ratio (1.0-2.8) unknown) (unknown) (no (unknown) (unknown) Albumin/Globulin (units (unknown) date) Ratio (1.0-2.8) unknown) (unknown) (no (unknown) (unknown) Albumin/Globulin (units (unknown) date) Ratio 1.4 unknown) (1.0-2.8) (unknown) (no (unknown) (unknown) Alkaline (units (unkno wn) date) Phosphatase unknown) (38-126) U/L (unknown) (no (unknown) (unknown) Alkaline (units (unkno wn) date) Phosphatase unknown) (38-126) U/L (unknown) (no (unknown) (unknown) Alkaline (units (unkno wn) date) Phosphatase 64 unknown) (38-126) U/L (unknown) (no (unknown) (unknown) Allergy/Adv: (units (u nknown) date) celecoxib, latex, unknown) Sulfa (Sulfonamide Antibiotics), varenicline, (unknown) (no (unknown) (unknown) Allergy/AdvReac (units (unknown) date) Type Severity unknown) Reaction Status Date / Time (unknown) (no (unknown) (unknown) Anginal pain (units (u nknown) date) unknown) (unknown) (no (unknown) (unknown) Ankle X-Ray (units (un known) date) (Signed) unknown) (unknown) (no (unknown) (unknown) Antibiotics) (units (u nknown) date) unknown) (unknown) (no (unknown) (unknown) Approved by: (units (u nknown) date) Maxim Valadez, unknown) Clifford on 12/07/2021 at 21:44 ? (unknown) (no (unknown) (unknown) Approved by: (units (u nknown) date) Maxim Valadez, unknown) Clifford on 12/07/2021 at 21:48 ? (unknown) (no (unknown) (unknown) Asthma (units (unkno wn) date) unknown) (unknown) (no (unknown) (unknown) Atrial (units (unkno wn) date) fibrillation unknown) (unknown) (no (unknown) (unknown) BACK: Nontender (units (unknown) date) without deformity unknown) or crepitance. No flank tenderness. (unknown) (no (unknown) (unknown) BUN (9-20) (units (unknown) date) mg/dL unknown) (unknown) (no (unknown) (unknown) BUN (9-20) (units ( unknown) date) mg/dL unknown) (unknown) (no (unknown) (unknown) BUN 21 H (units (unk nown) date) (9-20) mg/dL unknown) (unknown) (no (unknown) (unknown) BUN/Creatinine (units (unknown) date) Ratio (6-22) unknown) (unknown) (no (unknown) (unknown) BUN/Creatinine (units (unknown) date) Ratio (6-22) unknown) (unknown) (no (unknown) (unknown) BUN/Creatinine (units (unknown) date) Ratio 23.9 H unknown) (6-22) (unknown) (no (unknown) (unknown) Baso # (Auto) (units ( unknown) date) (0-100) /uL unknown) (unknown) (no (unknown) (unknown) Baso # (Auto) (units ( unknown) date) (0-100) /uL unknown) (unknown) (no (unknown) (unknown) Baso # (Auto) 100 (units (unknown) date) (0-100) /uL unknown) (unknown) (no (unknown) (unknown) Baso % (Auto) (units ( unknown) date) (0-2) % unknown) (unknown) (no (unknown) (unknown) Baso % (Auto) (units ( unknown) date) (0-2) % unknown) (unknown) (no (unknown) (unknown) Baso % (Auto) 0.8 (units (unknown) date) (0-2) % unknown) (unknown) (no (unknown) (unknown) Blood Culture Stat (units (unknown) date) unknown) (unknown) (no (unknown) (unknown) Blood Pressure (units (unknown) date) 159/98 H 12/07/21 unknown) 20:23 (unknown) (no (unknown) (unknown) Blood Pressure (units (unknown) date) 207/103 H unknown) (unknown) (no (unknown) (unknown) Bones:? No (units (unk nown) date) fractures or unknown) subluxation.? There is anterolisthesis at C2-C3 (unknown) (no (unknown) (unknown) Brain MRI (Signed) (units (unknown) date) unknown) (unknown) (no (unknown) (unknown) Brain:? No (units (unkn own) date) intracranial unknown) hemorrhage, mass, or mass effect.? The adams-white matter (unknown) (no (unknown) (unknown) C4-C5 and C7-T1.? (units (unknown) date) There is also unknown) fusion at C5-C6 and C6-C7.? There is mild to (unknown) (no (unknown) (unknown) CARDIOVASCULAR: (units (unknown) date) Denies chest pain, unknown) palpitations, orthopnea, edema, (unknown) (no (unknown) (unknown) CARDIOVASCULAR: (units (unknown) date) Regular rate and unknown) rhythm without murmurs, gallops, or rubs. (unknown) (no (unknown) (unknown) COMPARISON:? (units (u nknown) date) [facility], unknown) CT, CT CERVICAL SPINE WO [facility], 04/16/2021, 12:21. (unknown) (no (unknown) (unknown) COMPARISON:? (units (u nknown) date) [facility], unknown) CT, CT HEAD/BRAIN WO CON, 04/16/2021, 12:21. (unknown) (no (unknown) (unknown) COPD (chronic (units ( unknown) date) obstructive unknown) pulmonary disease) (unknown) (no (unknown) (unknown) COVID19 -Nasal (units (unknown) date) RAPID/Pre-Proc Stat unknown) (unknown) (no (unknown) (unknown) CSF spaces:? Basal (units (unknown) date) cisterns are unknown) patent.? The ventricles are symmetric in size (unknown) (no (unknown) (unknown) CT - cervical (units ( unknown) date) spine: unknown) (unknown) (no (unknown) (unknown) CT lumbar spine wo (units (unknown) date) con Stat unknown) (unknown) (no (unknown) (unknown) CT scan - head: (units (unknown) date) unknown) (unknown) (no (unknown) (unknown) Calcium (units (unkno wn) date) (8.4-10.2) mg/dL unknown) (unknown) (no (unknown) (unknown) Calcium (units (unkno wn) date) (8.4-10.2) mg/dL unknown) (unknown) (no (unknown) (unknown) Calcium 8.4 (units ( unknown) date) (8.4-10.2) mg/dL unknown) (unknown) (no (unknown) (unknown) Call,Francisco J (units (unk nown) date) unknown) (unknown) (no (unknown) (unknown) Carbon Dioxide (units (unknown) date) (22-32) mmol/L unknown) (unknown) (no (unknown) (unknown) Carbon Dioxide (units (unknown) date) (22-32) mmol/L unknown) (unknown) (no (unknown) (unknown) Carbon Dioxide (units (unknown) date) 27 (22-32) unknown) mmol/L (unknown) (no (unknown) (unknown) Cervical Spine CT (units (unknown) date) (Signed) unknown) (unknown) (no (unknown) (unknown) Cervical spinal (units (unknown) date) stenosis unknown) (unknown) (no (unknown) (unknown) Chest CTA (Signed) (units (unknown) date) unknown) (unknown) (no (unknown) (unknown) Chest X-Ray (units (un known) date) (Signed) unknown) (unknown) (no (unknown) (unknown) Chest/Abdomen/Pelv (units (unknown) date) is CTA (Signed) unknown) (unknown) (no (unknown) (unknown) Chief Complaint: (units (unknown) date) Trauma unknown) (unknown) (no (unknown) (unknown) Chloride (units (unkno wn) date) (98-107) mmol/L unknown) (unknown) (no (unknown) (unknown) Chloride (units (unkno wn) date) (98-107) mmol/L unknown) (unknown) (no (unknown) (unknown) Chloride 104 (units (unknown) date) (98-107) mmol/L unknown) (unknown) (no (unknown) (unknown) 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 (10/22/16) (unknown) (no (unknown) (unknown) Zeina Saavedra (units (u nknown) date) unknown) (unknown) (no (unknown) (unknown) Complete Blood (units (unknown) date) Count AUTO DIFF unknown) Stat (unknown) (no (unknown) (unknown) Comprehensive (units ( unknown) date) Metabolic Panel unknown) Stat (unknown) (no (unknown) (unknown) Coronary artery (units (unknown) date) disease unknown) (unknown) (no (unknown) (unknown) Course (units (unkno wn) date) unknown) (unknown) (no (unknown) (unknown) Creatinine (units (unk nown) date) (0.66-1.25) mg/dL unknown) (unknown) (no (unknown) (unknown) Creatinine (units (unk nown) date) (0.66-1.25) mg/dL unknown) (unknown) (no (unknown) (unknown) Creatinine 0.88 (units (unknown) date) (0.66-1.25) mg/dL unknown) (unknown) (no (unknown) (unknown) : 1945 (units (unknown) date) Acct:[id number] unknown) (unknown) (no (unknown) (unknown) : 1945 (units (unknown) date) unknown) (unknown) (no (unknown) (unknown) Kimmy Gomez MD (units (unknown) date) [Primary Care unknown) Provider] - (unknown) (no (unknown) (unknown) Date of Service: (units (unknown) date) 12/07/21 unknown) (unknown) (no (unknown) (unknown) Departure (units (unkn own) date) unknown) (unknown) (no (unknown) (unknown) Inder Farley (units (u nknown) date) unknown) (unknown) (no (unknown) (unknown) Dictated by: (units (u nknown) date) Maxim Valadez, unknown) Clifford on 12/07/2021 at 21:42 ? ? (unknown) (no (unknown) (unknown) Dictated by: (units (u nknown) date) Maxim Valadez, unknown) Clifford on 12/07/2021 at 21:44 ? ? (unknown) (no (unknown) (unknown) Discharge Plan (units (unknown) date) unknown) (unknown) (no (unknown) (unknown) Discontinued (units (u nknown) date) Medications unknown) (unknown) (no (unknown) (unknown) ENT: Nose without (units (unknown) date) bleeding, purulent unknown) drainage. No nasal septal hematoma Throat (unknown) (no (unknown) (unknown) ER Physician: (units ( unknown) date) Jung Dejesus D.O. unknown) (unknown) (no (unknown) (unknown) EXTREMITIES: No (units (unknown) date) edema or joint unknown) tenderness. (unknown) (no (unknown) (unknown) EYES: Pupils equal (units (unknown) date) round and reactive. unknown) No hyphema Extraocular motions intact. (unknown) (no (unknown) (unknown) Echocardiogram (units (unknown) date) Ultrasound (Signed) unknown) (unknown) (no (unknown) (unknown) Eos # (Auto) (units (u nknown) date) (0-450) /uL unknown) (unknown) (no (unknown) (unknown) Eos # (Auto) (units (u nknown) date) (0-450) /uL unknown) (unknown) (no (unknown) (unknown) Eos # (Auto) 100 (units (unknown) date) (0-450) /uL unknown) (unknown) (no (unknown) (unknown) Eos % (Auto) (units (u nknown) date) (2-4) % unknown) (unknown) (no (unknown) (unknown) Eos % (Auto) (units (u nknown) date) (2-4) % unknown) (unknown) (no (unknown) (unknown) Eos % (Auto) 2.0 (units (unknown) date) (2-4) % unknown) (unknown) (no (unknown) (unknown) Estimated GFR (units ( unknown) date) (>60) mL/min unknown) (unknown) (no (unknown) (unknown) Estimated GFR (units ( unknown) date) (>60) mL/min unknown) (unknown) (no (unknown) (unknown) Estimated GFR > (units (unknown) date) 60 (>60) mL/min unknown) (unknown) (no (unknown) (unknown) Ethanol (ETOH) (units (unknown) date) Stat unknown) (unknown) (no (unknown) (unknown) Ethyl Alcohol ( (units (unknown) date) - 10) mg/dL unknown) (unknown) (no (unknown) (unknown) Ethyl Alcohol ( (units (unknown) date) - 10) mg/dL unknown) (unknown) (no (unknown) (unknown) Ethyl Alcohol (units ( unknown) date) 111 H ( - 10) unknown) mg/dL (unknown) (no (unknown) (unknown) Exam (units (unkno wn) date) unknown) (unknown) (no (unknown) (unknown) Exam Narrative: (units (unknown) date) unknown) (unknown) (no (unknown) (unknown) FINDINGS:? (units (unk nown) date) unknown) (unknown) (no (unknown) (unknown) Family History (units (unknown) date) (Reviewed 12/08/21 unknown) @ 01:57 by Jung Dejesus DO) (unknown) (no (unknown) (unknown) Foot X-Ray (units (unk nown) date) (Signed) unknown) (unknown) (no (unknown) (unknown) GASTROINTESTINAL: (units (unknown) date) Abdomen soft, unknown) non-tender, nondistended. (unknown) (no (unknown) (unknown) GASTROINTESTINAL: (units (unknown) date) Denies nausea, unknown) vomiting, abdominal pain, diarrhea, (unknown) (no (unknown) (unknown) GENERAL: Denies (units (unknown) date) chills, fatigue, unknown) malaise, fever, sweats. (unknown) (no (unknown) (unknown) GENERAL: [76 year (units (unknown) date) old patient appears unknown) stated age. Well-developed patient, in (unknown) (no (unknown) (unknown) : Denies (units (unk nown) date) dysuria, frequency, unknown) incontinence, hematuria, urinary retention. (unknown) (no (unknown) (unknown) General (units (unkno wn) date) unknown) (unknown) (no (unknown) (unknown) GenericComposite[P (units (unknown) date) lt Count unknown) (150-400) X10^3/uL ] (unknown) (no (unknown) (unknown) GenericComposite[P (units (unknown) date) lt Count unknown) (150-400) X10^3/uL ] (unknown) (no (unknown) (unknown) GenericComposite[P (units (unknown) date) lt Count 241 unknown) (150-400) X10^3/uL ] (unknown) (no (unknown) (unknown) GenericComposite[R (units (unknown) date) BC (4.5-5.9) unknown) X10^6/uL ] (unknown) (no (unknown) (unknown) GenericComposite[R (units (unknown) date) BC (4.5-5.9) unknown) X10^6/uL ] (unknown) (no (unknown) (unknown) GenericComposite[R (units (unknown) date) BC 4.93 unknown) (4.5-5.9) X10^6/uL ] (unknown) (no (unknown) (unknown) GenericComposite[W (units (unknown) date) BC (4.5-11.0) unknown) X10^3/uL ] (unknown) (no (unknown) (unknown) GenericComposite[W (units (unknown) date) BC (4.5-11.0) unknown) X10^3/uL ] (unknown) (no (unknown) (unknown) GenericComposite[W (units (unknown) date) BC 7.4 unknown) (4.5-11.0) X10^3/uL ] (unknown) (no (unknown) (unknown) Globulin (units (unkno wn) date) (1.7-4.1) g/dL unknown) (unknown) (no (unknown) (unknown) Globulin (units (unkno wn) date) (1.7-4.1) g/dL unknown) (unknown) (no (unknown) (unknown) Globulin 2.9 (units (unknown) date) (1.7-4.1) g/dL unknown) (unknown) (no (unknown) (unknown) Glucose (units (unkno wn) date) (80-110) mg/dL unknown) (unknown) (no (unknown) (unknown) Glucose (units (unkno wn) date) (80-110) mg/dL unknown) (unknown) (no (unknown) (unknown) Glucose 124 H (units (unknown) date) (80-110) mg/dL unknown) (unknown) (no (unknown) (unknown) Glucose POC 118 (units (unknown) date) unknown) (unknown) (no (unknown) (unknown) H/O arthroscopic (units (unknown) date) knee surgery unknown) (11/14/17) (unknown) (no (unknown) (unknown) HEAD: Superficial (units (unknown) date) abrasion on the unknown) bridge of his nose, no other obvious (unknown) (no (unknown) (unknown) HEENT: See HPI (units (unknown) date) unknown) (unknown) (no (unknown) (unknown) HPI - Fall (units (unk nown) date) unknown) (unknown) (no (unknown) (unknown) HPI Narrative: (units (unknown) date) unknown) (unknown) (no (unknown) (unknown) Hand X-Ray (units (unk nown) date) (Signed) unknown) (unknown) (no (unknown) (unknown) Jean Oneill (units (unknown) date) unknown) (unknown) (no (unknown) (unknown) Hct (41-53) % (units (unknown) date) unknown) (unknown) (no (unknown) (unknown) Hct (41-53) % (units (unknown) date) unknown) (unknown) (no (unknown) (unknown) Hct 46.0 (units (unkn own) date) (41-53) % unknown) (unknown) (no (unknown) (unknown) Head CT (Signed) (units (unknown) date) unknown) (unknown) (no (unknown) (unknown) Head/Neck CTA (units ( unknown) date) (Signed) unknown) (unknown) (no (unknown) (unknown) Hgb (units (unkno wn) date) (13.5-17.5) g/dL unknown) (unknown) (no (unknown) (unknown) Hgb (13.5-17.5) (units (unknown) date) g/dL unknown) (unknown) (no (unknown) (unknown) Hgb 15.6 (units (unkn own) date) (13.5-17.5) g/dL unknown) (unknown) (no (unknown) (unknown) History of Present (units (unknown) date) Illness unknown) (unknown) (no (unknown) (unknown) History of aortic (units (unknown) date) dissection unknown) () (unknown) (no (unknown) (unknown) History of (units (unk nown) date) arthroplasty of unknown) right knee (unknown) (no (unknown) (unknown) 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 (unknown) (no (unknown) (unknown) History of cardiac (units (unknown) date) cath () unknown) (unknown) (no (unknown) (unknown) History of (units (unk nown) date) esophageal surgery unknown) (unknown) (no (unknown) (unknown) History of (units (unk nown) date) incision and unknown) drainage (-2016) (unknown) (no (unknown) (unknown) History of prior (units (unknown) date) ablation treatment unknown) () (unknown) (no (unknown) (unknown) History of surgery (units (unknown) date) unknown) (unknown) (no (unknown) (unknown) Vidal,Ronni (units (unk nown) date) unknown) (unknown) (no (unknown) (unknown) Hx of (units (unkno wn) date) cholecystectomy unknown) (unknown) (no (unknown) (unknown) Hx of hernia (units (u nknown) date) repair unknown) (unknown) (no (unknown) (unknown) Hx of sinus (units (un known) date) surgery unknown) (unknown) (no (unknown) (unknown) Hydromorphone HCl (units (unknown) date) (Hydromorphone 0.5 unknown) Mg Inj) 0.5 mg IV NOW ONE (unknown) (no (unknown) (unknown) Hypertension (units (u nknown) date) unknown) (unknown) (no (unknown) (unknown) IMPRESSION:? (units (u nknown) date) unknown) (unknown) (no (unknown) (unknown) INDICATIONS:? (units ( unknown) date) trauma unknown) (unknown) (no (unknown) (unknown) INHIBITOR] (units (unk nown) date) unknown) (unknown) (no (unknown) (unknown) Image quality:? (units (unknown) date) Excellent.? unknown) (unknown) (no (unknown) (unknown) Image quality:? (units (unknown) date) There is motion unknown) artifact limiting evaluation.? (unknown) (no (unknown) (unknown) Imaging Data (units (u nknown) date) unknown) (unknown) (no (unknown) (unknown) Inhibitor (units (unkn own) date) MUSCLES unknown) (unknown) (no (unknown) (unknown) Initial Vital (units ( unknown) date) Signs unknown) (unknown) (no (unknown) (unknown) Initial Vital (units ( unknown) date) Signs: unknown) (unknown) (no (unknown) (unknown) Ischemic (units (unkno wn) date) cardiomyopathy unknown) (unknown) (no (unknown) (unknown) TheodoreLorrieExmore (units (unknown) date) unknown) (unknown) (no (unknown) (unknown) ShadiBharath cash (units ( unknown) date) unknown) (unknown) (no (unknown) (unknown) Knee X-Ray (units (unk nown) date) (Signed) unknown) (unknown) (no (unknown) (unknown) Lab Data (units (unkno wn) date) unknown) (unknown) (no (unknown) (unknown) Labs: (units (unkno wn) date) unknown) (unknown) (no (unknown) (unknown) Lactate (units (unkno wn) date) (0.7-2.1) mmol/L unknown) (unknown) (no (unknown) (unknown) Lactate 2.3 H (units (unknown) date) (0.7-2.1) mmol/L unknown) (unknown) (no (unknown) (unknown) Lactate 1.5 (units ( unknown) date) (0.7-2.1) mmol/L unknown) (unknown) (no (unknown) (unknown) Lactate (Lactic (units (unknown) date) Acid) Stat unknown) (unknown) (no (unknown) (unknown) Jarrett,Satish (units (unkno wn) date) unknown) (unknown) (no (unknown) (unknown) Loc: ED (units (unkno wn) date) unknown) (unknown) (no (unknown) (unknown) Lumbar Spine MRI (units (unknown) date) (Signed) unknown) (unknown) (no (unknown) (unknown) Lymph # (Auto) (units (unknown) date) (0933-4088) /uL unknown) (unknown) (no (unknown) (unknown) Lymph # (Auto) (units (unknown) date) (4302-9803) /uL unknown) (unknown) (no (unknown) (unknown) Lymph # (Auto) (units (unknown) date) 1700 (4861-4394) unknown) /uL (unknown) (no (unknown) (unknown) Lymph % (Auto) (units (unknown) date) (25-40) % unknown) (unknown) (no (unknown) (unknown) Lymph % (Auto) (units (unknown) date) (25-40) % unknown) (unknown) (no (unknown) (unknown) Lymph % (Auto) (units (unknown) date) 23.0 L (25-40) unknown) % (unknown) (no (unknown) (unknown) MCH (26-34) (units (unknown) date) PG unknown) (unknown) (no (unknown) (unknown) MCH (26-34) PG (units (unknown) date) unknown) (unknown) (no (unknown) (unknown) MCH 31.7 (units (unkn own) date) (26-34) PG unknown) (unknown) (no (unknown) (unknown) MCHC (30-36) (units (unknown) date) % unknown) (unknown) (no (unknown) (unknown) MCHC (30-36) % (units (unknown) date) unknown) (unknown) (no (unknown) (unknown) MCHC 34.0 (units (unk nown) date) (30-36) % unknown) (unknown) (no (unknown) (unknown) MCV (80-100) (units (unknown) date) fL unknown) (unknown) (no (unknown) (unknown) MCV (80-100) (units (unknown) date) fL unknown) (unknown) (no (unknown) (unknown) MCV 93.3 (units (unkn own) date) (80-100) fL unknown) (unknown) (no (unknown) (unknown) MDM - Fall (units (unk nown) date) unknown) (unknown) (no (unknown) (unknown) MR#: [id number] (units (unknown) date) unknown) (unknown) (no (unknown) (unknown) MUSCULOSKELETAL: (units (unknown) date) See HPI unknown) (unknown) (no (unknown) (unknown) Medical History (units (unknown) date) (Reviewed 12/08/21 unknown) @ 01:57 by Jung Dejesus DO) (unknown) (no (unknown) (unknown) Cheryl Husain (units (unknown) date) unknown) (unknown) (no (unknown) (unknown) Mode of arrival: (units (unknown) date) EMS unknown) (unknown) (no (unknown) (unknown) [place] # (Auto) (units ( unknown) date) (0-900) /uL unknown) (unknown) (no (unknown) (unknown) [place] # (Auto) (units ( unknown) date) (0-900) /uL unknown) (unknown) (no (unknown) (unknown) [place] # (Auto) 700 (units (unknown) date) (0-900) /uL unknown) (unknown) (no (unknown) (unknown) [place] % (Auto) (units ( unknown) date) (3-14) % unknown) (unknown) (no (unknown) (unknown) [place] % (Auto) (units ( unknown) date) (3-14) % unknown) (unknown) (no (unknown) (unknown) [place] % (Auto) 9.5 (units (unknown) date) (3-14) % unknown) (unknown) (no (unknown) (unknown) Mother (units (unknown) date) Stroke unknown) (unknown) (no (unknown) (unknown) NECK: Trachea (units ( unknown) date) midline. Non tender unknown) (unknown) (no (unknown) (unknown) NEURO: Cranial (units (unknown) date) nerves 2-12 grossly unknown) intact (unknown) (no (unknown) (unknown) NEUROLOGIC: Denies (units (unknown) date) weakness, headache, unknown) numbness, change in speech, confusion, (unknown) (no (unknown) (unknown) NOW ONE (units (unkno wn) date) unknown) (unknown) (no (unknown) (unknown) Narcotic (units (unkno wn) date) dependence unknown) (unknown) (no (unknown) (unknown) Narrative (units (unkn own) date) unknown) (unknown) (no (unknown) (unknown) Narrative: (units (unk nown) date) unknown) (unknown) (no (unknown) (unknown) Neck pain, chronic (units (unknown) date) unknown) (unknown) (no (unknown) (unknown) Neut # (Auto) (units ( unknown) date) (2041-8479) /uL unknown) (unknown) (no (unknown) (unknown) Neut # (Auto) (units ( unknown) date) (5835-3054) /uL unknown) (unknown) (no (unknown) (unknown) Neut # (Auto) (units ( unknown) date) 4800 (2971-3118) unknown) /uL (unknown) (no (unknown) (unknown) Neut % (Auto) (units ( unknown) date) (50-75) % unknown) (unknown) (no (unknown) (unknown) Neut % (Auto) (units ( unknown) date) (50-75) % unknown) (unknown) (no (unknown) (unknown) Neut % (Auto) (units ( unknown) date) 64.7 (50-75) % unknown) (unknown) (no (unknown) (unknown) No Action (units (unkn own) date) unknown) (unknown) (no (unknown) (unknown) No scleral (units (unk nown) date) icterus. No unknown) injection or drainage. (unknown) (no (unknown) (unknown) Noncontrast 3 mm (units (unknown) date) thick sections unknown) acquired from the skull base to the T4 level.? (unknown) (no (unknown) (unknown) Noncontrast 4.5 mm (units (unknown) date) thick angled axial unknown) sections acquired from the foramen magnum (unknown) (no (unknown) (unknown) Ondansetron HCl (units (unknown) date) (Ondansetron 4 Mg/2 unknown) Ml Inj) 4 mg IV NOW ONE (unknown) (no (unknown) (unknown) Ordered: (units (unkno wn) date) unknown) (unknown) (no (unknown) (unknown) Ordering Provider: (units (unknown) date) Jung Dejesus D.O. unknown) (unknown) (no (unknown) (unknown) Orders (units (unkno wn) date) unknown) (unknown) (no (unknown) (unknown) PROCEDURE:? CT (units (unknown) date) CERVICAL SPINE WO unknown) CON (unknown) (no (unknown) (unknown) PROCEDURE:? CT (units (unknown) date) HEAD/BRAIN WO CON unknown) (unknown) (no (unknown) (unknown) PSYCHIATRIC: No (units (unknown) date) concerning unknown) psychosocial issues. (unknown) (no (unknown) (unknown) Pantoprazole (units (u nknown) date) Sodium unknown) (Pantoprazole 40 Mg Vial) 40 mg IV NOW ONE (unknown) (no (unknown) (unknown) Patient History (units (unknown) date) unknown) (unknown) (no (unknown) (unknown) Patient observed (units (unknown) date) for some time unknown) before labs added. He has continued to have a (unknown) (no (unknown) (unknown) Patient: (units (unkno wn) date) Dominic Viveros unknown) MR#: M (unknown) (no (unknown) (unknown) Patient: (units (unkno wn) date) Dominic Viveros unknown) (unknown) (no (unknown) (unknown) Maxim Valadez (units (un known) date) unknown) (unknown) (no (unknown) (unknown) Potassium (units (unkn own) date) (3.4-5.1) mmol/L unknown) (unknown) (no (unknown) (unknown) Potassium (units (unkn own) date) (3.4-5.1) mmol/L unknown) (unknown) (no (unknown) (unknown) Potassium 4.5 (units (unknown) date) (3.4-5.1) mmol/L unknown) (unknown) (no (unknown) (unknown) Prescriptions: (units (unknown) date) unknown) (unknown) (no (unknown) (unknown) Procedure: CT (units ( unknown) date) cervical spine wo unknown) con (unknown) (no (unknown) (unknown) Procedure: CT (units ( unknown) date) head/brain wo con unknown) (unknown) (no (unknown) (unknown) Prolactin (units (unkn own) date) (3.7-17.9) ng/mL unknown) (unknown) (no (unknown) (unknown) Prolactin (units (unkn own) date) (3.7-17.9) ng/mL unknown) (unknown) (no (unknown) (unknown) Prolactin 18.9 H (units (unknown) date) (3.7-17.9) ng/mL unknown) (unknown) (no (unknown) (unknown) Prolactin Stat (units (unknown) date) unknown) (unknown) (no (unknown) (unknown) Pulse Oximetry 92 (units (unknown) date) 12/07/21 20:23 unknown) (unknown) (no (unknown) (unknown) Pulse Oximetry 91 (units (unknown) date) 96 unknown) (unknown) (no (unknown) (unknown) Pulse Rate 88 (units (unknown) date) 12/07/21 20:23 unknown) (unknown) (no (unknown) (unknown) Pulse Rate 85 67 (units (unknown) date) unknown) (unknown) (no (unknown) (unknown) RDW (units (unkno wn) date) (11.6-14.8) % unknown) (unknown) (no (unknown) (unknown) RDW (11.6-14.8) (units (unknown) date) % unknown) (unknown) (no (unknown) (unknown) RDW 13.7 (units (unkn own) date) (11.6-14.8) % unknown) (unknown) (no (unknown) (unknown) RESPIRATORY: Clear (units (unknown) date) to auscultation. unknown) Breath sounds equal bilaterally. No wheezes, (unknown) (no (unknown) (unknown) RESPIRATORY: (units (u nknown) date) Denies dyspnea, unknown) cough, wheezing, hemoptysis, sputum. (unknown) (no (unknown) (unknown) Dominic Viveros (units (unknown) date) D??76??M?? unknown) 5 (unknown) (no (unknown) (unknown) Reevaluation #1: (units (unknown) date) unknown) (unknown) (no (unknown) (unknown) Reevaluation(s) (units (unknown) date) unknown) (unknown) (no (unknown) (unknown) Referrals: (units (unk nown) date) unknown) (unknown) (no (unknown) (unknown) Related Data (units (u nknown) date) unknown) (unknown) (no (unknown) (unknown) Respiratory Rate (units (unknown) date) 17 unknown) (unknown) (no (unknown) (unknown) Respiratory Rate (units (unknown) date) 22 12/07/21 20:23 unknown) (unknown) (no (unknown) (unknown) Result diagrams: (units (unknown) date) unknown) (unknown) (no (unknown) (unknown) Review of Systems (units (unknown) date) unknown) (unknown) (no (unknown) (unknown) Emeka Robertson (units (unknown) date) unknown) (unknown) (no (unknown) (unknown) Sudarshan Calderon (units (u nknown) date) unknown) (unknown) (no (unknown) (unknown) S/P CABG x 3 (units (u nknown) date) (-08/2007) unknown) (unknown) (no (unknown) (unknown) S/P cervical (units (u nknown) date) spinal fusion unknown) (unknown) (no (unknown) (unknown) S/P lumbar fusion (units (unknown) date) unknown) (unknown) (no (unknown) (unknown) SARS-CoV-2 (PCR) (units (unknown) date) (Negative) unknown) (unknown) (no (unknown) (unknown) SARS-CoV-2 (PCR) (units (unknown) date) (Negative) unknown) (unknown) (no (unknown) (unknown) SARS-CoV-2 (PCR) (units (unknown) date) Negative unknown) (Negative) (unknown) (no (unknown) (unknown) SKIN: Denies rash, (units (unknown) date) skin lesions, or unknown) other (unknown) (no (unknown) (unknown) SKIN: No rash or (units (unknown) date) erythema of visible unknown) areas (unknown) (no (unknown) (unknown) Sagittal (units (unkno wn) date) unknown) (unknown) (no (unknown) (unknown) Salicylate Stat (units (unknown) date) unknown) (unknown) (no (unknown) (unknown) Salicylates (units (un known) date) (<20) mg/dL unknown) (unknown) (no (unknown) (unknown) Salicylates (units (un known) date) (<20) mg/dL unknown) (unknown) (no (unknown) (unknown) Salicylates < (units (unknown) date) 1.0 (<20) mg/dL unknown) (unknown) (no (unknown) (unknown) Signed By: (units (unk nown) date) unknown) (unknown) (no (unknown) (unknown) Sinuses:? (units (unkn own) date) Visualized sinuses unknown) redemonstrate wall thickening and mucoperiosteal (unknown) (no (unknown) (unknown) Skull and face:? (units (unknown) date) Calvarium and unknown) visualized facial bones appear intact, without (unknown) (no (unknown) (unknown) Smoking Status: (units (unknown) date) Former smoker unknown) (unknown) (no (unknown) (unknown) Smoking Status: (units (unknown) date) Former smoker unknown) (unknown) (no (unknown) (unknown) Social History (units (unknown) date) (Reviewed 12/08/21 unknown) @ 01:57 by Jung Dejesus DO) (unknown) (no (unknown) (unknown) Sodium (units (unkno wn) date) (137-145) mmol/L unknown) (unknown) (no (unknown) (unknown) Sodium (units (unkno wn) date) (137-145) mmol/L unknown) (unknown) (no (unknown) (unknown) Sodium 140 (units (u nknown) date) (137-145) mmol/L unknown) (unknown) (no (unknown) (unknown) Sodium Chloride (units (unknown) date) (Normal Saline unknown) 0.9%) 1,000 mls @ 150 mls/hr IV CONT BLOSSOM (unknown) (no (unknown) (unknown) Soft tissues:? (units (unknown) date) Prevertebral soft unknown) tissues are normal in thickness.? No (unknown) (no (unknown) (unknown) Source: patient, (units (unknown) date) family and EMS unknown) (unknown) (no (unknown) (unknown) Stated Complaint: (units (unknown) date) Back Pain unknown) (unknown) (no (unknown) (unknown) Alnneib-AYI-PzV (units (unknown) date) Reductase AdvReac unknown) Mild WEAK Verified 11/28/21 15:33 (unknown) (no (unknown) (unknown) Substance Use (units ( unknown) date) Type: does not use unknown) (unknown) (no (unknown) (unknown) Sulfa (Sulfonamide (units (unknown) date) Allergy Mild RASH unknown) Verified 11/28/21 15:33 (unknown) (no (unknown) (unknown) Surgical History (units (unknown) date) (Reviewed 12/08/21 unknown) @ 01:57 by Jung Dejesus DO) (unknown) (no (unknown) (unknown) Andre Spear (units ( unknown) date) unknown) (unknown) (no (unknown) (unknown) TECHNIQUE:? (units (un known) date) unknown) (unknown) (no (unknown) (unknown) TSH (units (unkno wn) date) (0.47-4.68) uIU/mL unknown) (unknown) (no (unknown) (unknown) TSH (0.47-4.68) (units (unknown) date) uIU/mL unknown) (unknown) (no (unknown) (unknown) TSH 2.07 (units (unkn own) date) (0.47-4.68) uIU/mL unknown) (unknown) (no (unknown) (unknown) Telemetry Strips (units (unknown) date) unknown) (unknown) (no (unknown) (unknown) Temperature 97.4 (units (unknown) date) F L 12/07/21 20:23 unknown) (unknown) (no (unknown) (unknown) Temperature 97.8 (units (unknown) date) F unknown) (unknown) (no (unknown) (unknown) There is a small (units (unknown) date) right choroidal unknown) fissure cyst redemonstrated.? (unknown) (no (unknown) (unknown) There is mild (units ( unknown) date) cerebral volume unknown) loss, with resultant ventricular and sulcal (unknown) (no (unknown) (unknown) Thyroid (units (unkno wn) date) Stimulating Hormone unknown) Stat (unknown) (no (unknown) (unknown) Tibia/Fibula X-Ray (units (unknown) date) (Signed) unknown) (unknown) (no (unknown) (unknown) Time Seen by (units (u nknown) date) Provider: 12/07/21 unknown) 20:22 (unknown) (no (unknown) (unknown) Total Bilirubin (units (unknown) date) (0.2-1.3) mg/dL unknown) (unknown) (no (unknown) (unknown) Total Bilirubin (units (unknown) date) (0.2-1.3) mg/dL unknown) (unknown) (no (unknown) (unknown) Total Bilirubin (units (unknown) date) 0.9 (0.2-1.3) unknown) mg/dL (unknown) (no (unknown) (unknown) Total Protein (units ( unknown) date) (6.3-8.2) g/dL unknown) (unknown) (no (unknown) (unknown) Total Protein (units ( unknown) date) (6.3-8.2) g/dL unknown) (unknown) (no (unknown) (unknown) Total Protein (units ( unknown) date) 7.0 (6.3-8.2) unknown) g/dL (unknown) (no (unknown) (unknown) U Benzodiazepines (units (unknown) date) Scrn (Negative) unknown) (unknown) (no (unknown) (unknown) U Benzodiazepines (units (unknown) date) Scrn Positive H unknown) (Negative) (unknown) (no (unknown) (unknown) U Marijuana (THC) (units (unknown) date) Screen unknown) (Negative) (unknown) (no (unknown) (unknown) U Marijuana (THC) (units (unknown) date) Screen Negative unknown) (Negative) (unknown) (no (unknown) (unknown) U Methamphetamines (units (unknown) date) Scrn (Negative) unknown) (unknown) (no (unknown) (unknown) U Methamphetamines (units (unknown) date) Scrn Negative unknown) (Negative) (unknown) (no (unknown) (unknown) U Opiates 300ng/mL (units (unknown) date) cut (Negative) unknown) (unknown) (no (unknown) (unknown) U Opiates 300ng/mL (units (unknown) date) cut Positive H unknown) (Negative) (unknown) (no (unknown) (unknown) U Tricyclic (units (un known) date) Antidepress unknown) (Negative) (unknown) (no (unknown) (unknown) U Tricyclic (units (un known) date) Antidepress unknown) Negative (Negative) (unknown) (no (unknown) (unknown) Ur Amphetamines (units (unknown) date) Screen unknown) (Negative) (unknown) (no (unknown) (unknown) Ur Amphetamines (units (unknown) date) Screen Negative unknown) (Negative) (unknown) (no (unknown) (unknown) Ur Barbiturates (units (unknown) date) Screen unknown) (Negative) (unknown) (no (unknown) (unknown) Ur Barbiturates (units (unknown) date) Screen Negative unknown) (Negative) (unknown) (no (unknown) (unknown) Ur Culture (units (unk nown) date) Indicated? unknown) (unknown) (no (unknown) (unknown) Ur Culture (units (unk nown) date) Indicated? unknown) (unknown) (no (unknown) (unknown) Ur Culture (units (unk nown) date) Indicated? Cult unknown) not indicated (unknown) (no (unknown) (unknown) Ur Leukocyte (units (u nknown) date) Esterase unknown) (NEGATIVE) (unknown) (no (unknown) (unknown) Ur Leukocyte (units (u nknown) date) Esterase unknown) (NEGATIVE) (unknown) (no (unknown) (unknown) Ur Leukocyte (units (u nknown) date) Esterase unknown) Negative (NEGATIVE) (unknown) (no (unknown) (unknown) Ur MDMA Scrn (units (u nknown) date) (Ecstasy) unknown) (Negative) (unknown) (no (unknown) (unknown) Ur MDMA Scrn (units (u nknown) date) (Ecstasy) Negative unknown) (Negative) (unknown) (no (unknown) (unknown) Ur Oxycodone (units (u nknown) date) Screen unknown) (Negative) (unknown) (no (unknown) (unknown) Ur Oxycodone (units (u nknown) date) Screen Negative unknown) (Negative) (unknown) (no (unknown) (unknown) Ur Phencyclidine (units (unknown) date) Scrn (Negative) unknown) (unknown) (no (unknown) (unknown) Ur Phencyclidine (units (unknown) date) Scrn Negative unknown) (Negative) (unknown) (no (unknown) (unknown) Ur Specific (units (un known) date) [place] unknown) (1.000-1.035) (unknown) (no (unknown) (unknown) Ur Specific (units (un known) date) [place] unknown) (1.000-1.035) (unknown) (no (unknown) (unknown) Ur Specific (units (un known) date) [place] 1.020 unknown) (1.000-1.035) (unknown) (no (unknown) (unknown) Ur Squamous Epith (units (unknown) date) Cells (0-5/HPF) unknown) (unknown) (no (unknown) (unknown) Ur Squamous Epith (units (unknown) date) Cells (0-5/HPF) unknown) (unknown) (no (unknown) (unknown) Ur Squamous Epith (units (unknown) date) Cells 0-1 /hpf unknown) (0-5/HPF) (unknown) (no (unknown) (unknown) Urinalysis and (units (unknown) date) Microscopic Stat unknown) (unknown) (no (unknown) (unknown) Urine Appearance (units (unknown) date) unknown) (unknown) (no (unknown) (unknown) Urine Appearance (units (unknown) date) unknown) (unknown) (no (unknown) (unknown) Urine Appearance (units (unknown) date) Clear unknown) (unknown) (no (unknown) (unknown) Urine Bacteria (units (unknown) date) (None) unknown) (unknown) (no (unknown) (unknown) Urine Bacteria (units (unknown) date) (None) unknown) (unknown) (no (unknown) (unknown) Urine Bacteria (units (unknown) date) None seen (None) unknown) (unknown) (no (unknown) (unknown) Urine Bilirubin (units (unknown) date) (NEGATIVE) unknown) (unknown) (no (unknown) (unknown) Urine Bilirubin (units (unknown) date) (NEGATIVE) unknown) (unknown) (no (unknown) (unknown) Urine Bilirubin (units (unknown) date) Negative unknown) (NEGATIVE) (unknown) (no (unknown) (unknown) Urine Cocaine (units ( unknown) date) Screen unknown) (Negative) (unknown) (no (unknown) (unknown) Urine Cocaine (units ( unknown) date) Screen Negative unknown) (Negative) (unknown) (no (unknown) (unknown) Urine Color (units (un known) date) unknown) (unknown) (no (unknown) (unknown) Urine Color (units (un known) date) unknown) (unknown) (no (unknown) (unknown) Urine Color (units (un known) date) Yellow unknown) (unknown) (no (unknown) (unknown) Urine Drug Screen, (units (unknown) date) Rapid Stat unknown) (unknown) (no (unknown) (unknown) Urine Glucose (UA) (units (unknown) date) (Negative) unknown) g/dL (unknown) (no (unknown) (unknown) Urine Glucose (UA) (units (unknown) date) (Negative) g/dL unknown) (unknown) (no (unknown) (unknown) Urine Glucose (UA) (units (unknown) date) Negative unknown) (Negative) g/dL (unknown) (no (unknown) (unknown) Urine Ketones (units ( unknown) date) (NEGATIVE) unknown) (unknown) (no (unknown) (unknown) Urine Ketones (units ( unknown) date) (NEGATIVE) unknown) (unknown) (no (unknown) (unknown) Urine Ketones (units ( unknown) date) Trace H (NEGATIVE) unknown) (unknown) (no (unknown) (unknown) Urine Methadone (units (unknown) date) Screen unknown) (Negative) (unknown) (no (unknown) (unknown) Urine Methadone (units (unknown) date) Screen Negative unknown) (Negative) (unknown) (no (unknown) (unknown) Urine Nitrate (units ( unknown) date) (Negative) unknown) (unknown) (no (unknown) (unknown) Urine Nitrate (units ( unknown) date) (Negative) unknown) (unknown) (no (unknown) (unknown) Urine Nitrate (units ( unknown) date) Negative unknown) (Negative) (unknown) (no (unknown) (unknown) Urine Occult Blood (units (unknown) date) (Negative) unknown) (unknown) (no (unknown) (unknown) Urine Occult Blood (units (unknown) date) (Negative) unknown) (unknown) (no (unknown) (unknown) Urine Occult Blood (units (unknown) date) Negative unknown) (Negative) (unknown) (no (unknown) (unknown) Urine Protein (units ( unknown) date) (Negative) unknown) (unknown) (no (unknown) (unknown) Urine Protein (units ( unknown) date) (Negative) unknown) (unknown) (no (unknown) (unknown) Urine Protein (units ( unknown) date) Negative unknown) (Negative) (unknown) (no (unknown) (unknown) Urine RBC (units (unkn own) date) (0-5/HPF) unknown) (unknown) (no (unknown) (unknown) Urine RBC (units (unkn own) date) (0-5/HPF) unknown) (unknown) (no (unknown) (unknown) Urine RBC None (units (unknown) date) seen (0-5/HPF) unknown) (unknown) (no (unknown) (unknown) Urine Urobilinogen (units (unknown) date) (0.2) E.U./dL unknown) (unknown) (no (unknown) (unknown) Urine Urobilinogen (units (unknown) date) (0.2) E.U./dL unknown) (unknown) (no (unknown) (unknown) Urine Urobilinogen (units (unknown) date) 0.2 (0.2) unknown) E.U./dL (unknown) (no (unknown) (unknown) Urine WBC (units (unkn own) date) (0-5/HPF) unknown) (unknown) (no (unknown) (unknown) Urine WBC (units (unkn own) date) (0-5/HPF) unknown) (unknown) (no (unknown) (unknown) Urine WBC None (units (unknown) date) seen (0-5/HPF) unknown) (unknown) (no (unknown) (unknown) Urine pH (units (unkno wn) date) (4.5-8.0) unknown) (unknown) (no (unknown) (unknown) Urine pH (units (unkno wn) date) (4.5-8.0) unknown) (unknown) (no (unknown) (unknown) Urine pH 5.0 (units (unknown) date) (4.5-8.0) unknown) (unknown) (no (unknown) (unknown) Vascular (units (unkno wn) date) Ultrasound (Signed) unknown) (unknown) (no (unknown) (unknown) Ventricular (units (un known) date) bigeminy unknown) (unknown) (no (unknown) (unknown) Vital Signs (units (un known) date) unknown) (unknown) (no (unknown) (unknown) Vital signs: (units (u nknown) date) unknown) (unknown) (no (unknown) (unknown) Charles,Lexx (units (u nknown) date) unknown) (unknown) (no (unknown) (unknown) [Embedded Image (units (unknown) date) Not Available] unknown) (unknown) (no (unknown) (unknown) [PHJAFOQ-EYX-LOG (units (unknown) date) REDUCTASE unknown) (unknown) (no (unknown) (unknown) [SULFA (units (unkno wn) date) (SULFONAMIDE unknown) (unknown) (no (unknown) (unknown) acetaminophen 300 (units (unknown) date) mg-codeine 30 mg 1 unknown) tab PO Q6HR PRN 10/08/21 10/08/21 (unknown) (no (unknown) (unknown) acetaminophen 325 (units (unknown) date) mg tablet 650 mg PO unknown) Q6H PRN #60 tab 11/06/20 (unknown) (no (unknown) (unknown) albuterol sulfate (units (unknown) date) 1.25 mg/3 mL 2.5 mg unknown) (6 mL) INHALATION QID #90 ml 11/28/21 (unknown) (no (unknown) (unknown) alcohol intake (units (unknown) date) frequency: unknown) holidays/special occasions only (unknown) (no (unknown) (unknown) alcohol intake: (units (unknown) date) current unknown) (unknown) (no (unknown) (unknown) and coronal (units (un known) date) reformats were then unknown) constructed.? For radiation dose reduction, the (unknown) (no (unknown) (unknown) and shape.? (units (un known) date) unknown) (unknown) (no (unknown) (unknown) appears (units (unkno wn) date) preserved.? There unknown) is intracranial internal carotid artery (unknown) (no (unknown) (unknown) approximately 0.2 (units (unknown) date) cm. unknown) (unknown) (no (unknown) (unknown) approximately 0.4 (units (unknown) date) cm and minimal unknown) anterolisthesis at C3-C4 measuring (unknown) (no (unknown) (unknown) arthropathy (units (un known) date) throughout the unknown) cervical spine.? Visualized superior ribs are (unknown) (no (unknown) (unknown) atherosclerosis.? (units (unknown) date) unknown) (unknown) (no (unknown) (unknown) benzonatate 100 mg (units (unknown) date) capsule 100 mg PO unknown) TID PRN #14 cap 03/05/21 (unknown) (no (unknown) (unknown) buprenorphine (units ( unknown) date) [BUPRENORPHINE] unknown) AdvReac Mild NAUSEA, Verified 11/28/21 15:33 (unknown) (no (unknown) (unknown) buprenorphine, (units (unknown) date) hyoscyamine, unknown) Yspfnjb-WMP-ChN Reductase Inhibitor, diazepam (unknown) (no (unknown) (unknown) cefdinir 300 mg (units (unknown) date) capsule 300 mg PO unknown) BID #20 cap 10/09/21 (unknown) (no (unknown) (unknown) celecoxib (units (unkn own) date) [CELECOXIB] Allergy unknown) Mild SWELLING Verified 11/28/21 15:33 (unknown) (no (unknown) (unknown) cetirizine 10 mg (units (unknown) date) capsule (Zyrtec) 10 unknown) mg PO DAILY 05/22/19 10/08/21 (unknown) (no (unknown) (unknown) chronic back pain, (units (unknown) date) ataxia, AFib, COPD unknown) presents for evaluation of a witnessed (unknown) (no (unknown) (unknown) chronic sinusitis. (units (unknown) date) unknown) (unknown) (no (unknown) (unknown) constipation, (units ( unknown) date) melena. unknown) (unknown) (no (unknown) (unknown) consumed a large (units (unknown) date) amount of alcohol unknown) tonight in addition to many other medications (unknown) (no (unknown) (unknown) contusion, (units (unk nown) date) laceration, unknown) hematoma or evidence of depressed skull fracture (unknown) (no (unknown) (unknown) degeneration also (units (unknown) date) demonstrated at unknown) C2-C3 and C3-C4.? There is multilevel moderate (unknown) (no (unknown) (unknown) degenerative disc (units (unknown) date) disease within the unknown) visualized upper thoracic spine.? Mild disc (unknown) (no (unknown) (unknown) diazepam [From (units (unknown) date) Valium] AdvReac unknown) Confusion Verified 11/28/21 15:33 (unknown) (no (unknown) (unknown) diclofenac sodium (units (unknown) date) 1 % topical gel 2 g unknown) TOPICAL QID #100 g 11/19/21 (unknown) (no (unknown) (unknown) difficult time (units ( unknown) date) ambulating and is unknown) unsafe to discharge at this time. His has (unknown) (no (unknown) (unknown) ferrous sulfate (units (unknown) date) 325 mg (65 mg 325 unknown) mg PO DAILY 10/19/19 10/08/21 (unknown) (no (unknown) (unknown) fluticasone (units (un known) date) propionate 50 1 unknown) spray INTRANASAL DAILY PRN #0 11/02/17 10/08/21 (unknown) (no (unknown) (unknown) following (units (unkn own) date) unknown) (unknown) (no (unknown) (unknown) furosemide 40 mg (units (unknown) date) tablet (Lasix) 40 unknown) mg PO DAILY 10/08/21 10/08/21 (unknown) (no (unknown) (unknown) glipizide 2.5 mg (units (unknown) date) tablet, extended unknown) 2.5 mg PO DAILY 10/08/21 10/08/21 (unknown) (no (unknown) (unknown) ground level fall. (units (unknown) date) He stumbled and unknown) fell forward, striking his nose. There was (unknown) (no (unknown) (unknown) hand (units (unkno wn) date) unknown) (unknown) (no (unknown) (unknown) hematomas.? No (units (unknown) date) apical unknown) pneumothoraces.? (unknown) (no (unknown) (unknown) household members: (units (unknown) date) spouse unknown) (unknown) (no (unknown) (unknown) hyoscyamine (units (un known) date) [HYOSCYAMINE] unknown) AdvReac Mild LEG Verified 11/28/21 15:33 (unknown) (no (unknown) (unknown) intact.? (units (unkno wn) date) unknown) (unknown) (no (unknown) (unknown) iron) (units (unkno wn) date) tablet,delayed unknown) release (unknown) (no (unknown) (unknown) latex [LATEX] (units ( unknown) date) Allergy Mild RASH unknown) Verified 11/28/21 15:33 (unknown) (no (unknown) (unknown) lesions.? (units (unkn own) date) unknown) (unknown) (no (unknown) (unknown) levalbuterol HCl (units (unknown) date) 1.25 mg/3 mL 3 ml unknown) INHALATION Q6H PRN 10/16/18 10/08/21 (unknown) (no (unknown) (unknown) levalbuterol (units (u nknown) date) tartrate 45 1 puff unknown) INHALATION Q4-6H PRN #15 06/22/18 (unknown) (no (unknown) (unknown) mastoid air cells (units (unknown) date) are clear. unknown) (unknown) (no (unknown) (unknown) mcg/actuation (units ( unknown) date) aerosol inhaler unknown) gram (unknown) (no (unknown) (unknown) mcg/actuation (units ( unknown) date) nasal unknown) (unknown) (no (unknown) (unknown) measuring (units (unkn own) date) unknown) (unknown) (no (unknown) (unknown) meclizine 25 mg (units (unknown) date) tablet 25 mg PO QID unknown) PRN #30 tab 10/09/21 (unknown) (no (unknown) (unknown) methocarbamol 500 (units (unknown) date) mg tablet 500 mg PO unknown) Q8H PRN #14 tab 11/19/21 (unknown) (no (unknown) (unknown) metoprolol (units (unk nown) date) tartrate 100 mg unknown) tablet 100 mg PO BID 10/16/18 10/08/21 (unknown) (no (unknown) (unknown) mg tablet (units (unkn own) date) (Percocet) unknown) (unknown) (no (unknown) (unknown) mild distress. (units (unknown) date) GCS 15, smells of unknown) alcohol and slurring his words (unknown) (no (unknown) (unknown) moderate (units (unkno wn) date) unknown) (unknown) (no (unknown) (unknown) multiple levels as (units (unknown) date) described. unknown) (unknown) (no (unknown) (unknown) multivitamin (units (u nknown) date) (Multiple Vitamins) unknown) 1 tab PO DAILY #0 12/20/16 10/08/21 (unknown) (no (unknown) (unknown) no loss of (units (unk nown) date) consciousness and unknown) he has had no nausea or vomiting. He denies any (unknown) (no (unknown) (unknown) other injuries (units (unknown) date) such as neck, back unknown) or extremities. His states that he (unknown) (no (unknown) (unknown) oxycodone 5 mg (units (unknown) date) tablet 10 mg PO unknown) Q4-5H PRN #60 tab 11/06/20 (unknown) (no (unknown) (unknown) oxycodone-acetamin (units (unknown) date) ophen 5 mg-325 1 unknown) tab PO Q8H PRN #10 tab 11/19/21 (unknown) (no (unknown) (unknown) oxycodone-acetamin (units (unknown) date) ophen 5 mg-325 1 unknown) tab PO TID PRN #10 tab 11/19/21 (unknown) (no (unknown) (unknown) paravertebral (units ( unknown) date) unknown) (unknown) (no (unknown) (unknown) patient (units (unkno wn) date) unknown) (unknown) (no (unknown) (unknown) prednisone 20 mg (units (unknown) date) tablet 20 mg PO unknown) DAILY #32 tab 11/28/21 (unknown) (no (unknown) (unknown) prednisone 50 mg (units (unknown) date) tablet 50 mg PO unknown) DAILY #5 tab 11/19/21 (unknown) (no (unknown) (unknown) prominence.? (units (u nknown) date) unknown) (unknown) (no (unknown) (unknown) release 24 hr (units ( unknown) date) (Glucotrol XL) unknown) (unknown) (no (unknown) (unknown) seizures, (units (unkn own) date) incoordination. unknown) (unknown) (no (unknown) (unknown) sequelae of (units (un known) date) unknown) (unknown) (no (unknown) (unknown) sinusitis.? The (units (unknown) date) unknown) (unknown) (no (unknown) (unknown) size.? (units (unkno wn) date) unknown) (unknown) (no (unknown) (unknown) solution for (units (u nknown) date) nebulization unknown) (unknown) (no (unknown) (unknown) solution for (units (u nknown) date) nebulization unknown) (unknown) (no (unknown) (unknown) spray,suspension (units (unknown) date) unknown) (unknown) (no (unknown) (unknown) study.? There are (units (unknown) date) postsurgical unknown) changes also redemonstrated status post prior (unknown) (no (unknown) (unknown) substance use (units ( unknown) date) type: does not use unknown) (unknown) (no (unknown) (unknown) suspicious (units (unk nown) date) unknown) (unknown) (no (unknown) (unknown) tablet (units (unkno wn) date) unknown) (unknown) (no (unknown) (unknown) that he would (units ( unknown) date) routinely take. He unknown) is activated as a modified trauma. (unknown) (no (unknown) (unknown) the prior (units (unkn own) date) unknown) (unknown) (no (unknown) (unknown) thickening (units (unk nown) date) unknown) (unknown) (no (unknown) (unknown) to the (units (unkno wn) date) unknown) (unknown) (no (unknown) (unknown) trazodone 100 mg (units (unknown) date) tablet 400 tab PO unknown) BEDTIME 12/09/17 10/08/21 (unknown) (no (unknown) (unknown) varenicline (units (un known) date) [VARENICLINE] unknown) AdvReac Severe Paranoia Verified 11/28/21 15:33 (unknown) (no (unknown) (unknown) vertex, with (units (u nknown) date) coronal and unknown) sagittal reformats.? For radiation dose reduction, the (unknown) (no (unknown) (unknown) was used:? (units (unk nown) date) automated exposure unknown) control, adjustment of mA and/or kV according to (unknown) (no (unknown) (unknown) within the (units (unk nown) date) visualized left unknown) maxillary sinus suggesting sequelae of chronic (unknown) (no (unknown) (unknown) without erythema, (units (unknown) date) tonsillar unknown) hypertrophy or exudate. Airway patent. Result panel 37 (unknown) (no (unknown) (unknown) (no value) (units (unk nown) date) unknown) (unknown) (no (unknown) (unknown) Radiologist's (units ( unknown) date) Impression: unknown) (unknown) (no (unknown) (unknown) (no value) (units (unk nown) date) unknown) (unknown) (no (unknown) (unknown) Date of Service: (units (unknown) date) 12/07/21 unknown) (unknown) (no (unknown) (unknown) (no value) (units (unk nown) date) unknown) (unknown) (no (unknown) (unknown) 12/07/21 23:05 (units (unknown) date) unknown) (unknown) (no (unknown) (unknown) 1 puff INHALATION (units (unknown) date) Q4-6H PRN (Reason: unknown) shortness of breath or wheezing) Qty: 15 (unknown) (no (unknown) (unknown) 1 spray Intranasal (units (unknown) date) DAILY PRN (Reason: unknown) Allergy Symptoms) Qty: 0 0RF (unknown) (no (unknown) (unknown) 1 tab PO DAILY (units (unknown) date) Qty: 0 0RF unknown) (unknown) (no (unknown) (unknown) 1 tab PO Q6HR PRN (units (unknown) date) (Reason: Back Pain) unknown) 0RF (unknown) (no (unknown) (unknown) 1 tab PO Q8H PRN (units (unknown) date) (Reason: pain) Qty: unknown) 10 0RF (unknown) (no (unknown) (unknown) 1 tab PO TID PRN (units (unknown) date) (Reason: pain) Qty: unknown) 10 0RF (unknown) (no (unknown) (unknown) 10 mg PO DAILY 0RF (units (unknown) date) unknown) (unknown) (no (unknown) (unknown) 10 mg PO Q4-5H PRN (units (unknown) date) (Reason: Pain, unknown) Severe (7-10)) Qty: 60 0RF (unknown) (no (unknown) (unknown) 100 mg PO BID 0RF (units (unknown) date) unknown) (unknown) (no (unknown) (unknown) 100 mg PO TID PRN (units (unknown) date) (Reason: cough) unknown) Qty: 14 0RF (unknown) (no (unknown) (unknown) [address] (units (unknown) date) unknown) (unknown) (no (unknown) (unknown) 2 g topical QID (units (unknown) date) Qty: 100 0RF unknown) (unknown) (no (unknown) (unknown) 2.5 mg PO DAILY (units (unknown) date) 0RF unknown) (unknown) (no (unknown) (unknown) 2.5 mg inhalation (units (unknown) date) QID Qty: 90 1RF unknown) (unknown) (no (unknown) (unknown) 20 mg PO DAILY (units (unknown) date) Qty: 32 0RF unknown) (unknown) (no (unknown) (unknown) 25 mg PO QID PRN (units (unknown) date) (Reason: vertigo) unknown) Qty: 30 0RF (unknown) (no (unknown) (unknown) 3 ml Inhalation (units (unknown) date) Q6H PRN (Reason: unknown) Shortness Of Breath) 0RF (unknown) (no (unknown) (unknown) 300 mg PO BID Qty: (units (unknown) date) 20 0RF unknown) (unknown) (no (unknown) (unknown) 325 mg PO DAILY (units (unknown) date) 0RF unknown) (unknown) (no (unknown) (unknown) 40 mg PO DAILY 0RF (units (unknown) date) unknown) (unknown) (no (unknown) (unknown) 400 tab PO BEDTIME (units (unknown) date) 0RF unknown) (unknown) (no (unknown) (unknown) 50 mg PO DAILY (units (unknown) date) Qty: 5 0RF unknown) (unknown) (no (unknown) (unknown) 500 mg PO Q8H PRN (units (unknown) date) (Reason: muscle unknown) spasm) Qty: 14 0RF (unknown) (no (unknown) (unknown) 60mg x 5 day, 40mg (units (unknown) date) x 5 day, 20mg x5 unknown) day, 10mg x 4 days (unknown) (no (unknown) (unknown) 650 mg PO Q6H PRN (units (unknown) date) (Reason: pain) Qty: unknown) 60 0RF (unknown) (no (unknown) (unknown) ANXIETY, (units (unkno wn) date) unknown) (unknown) (no (unknown) (unknown) Admin: 12/07/21 (units (unknown) date) 23:25 Dose: 150 unknown) mls/hr (unknown) (no (unknown) (unknown) Allergies (units (unkn own) date) unknown) (unknown) (no (unknown) (unknown) [place] (units ( unknown) date) [id number] unknown) (unknown) (no (unknown) (unknown) CT Scan Report (units (unknown) date) unknown) (unknown) (no (unknown) (unknown) Close (units (unkno wn) date) unknown) (unknown) (no (unknown) (unknown) DIZZINESS (units (unkn own) date) unknown) (unknown) (no (unknown) (unknown) Documented by: (units (unknown) date) unknown) (unknown) (no (unknown) (unknown) Documented by: (units (unknown) date) [email or web address] unknown) (unknown) (no (unknown) (unknown) Documented by: (units (unknown) date) RLAZANI unknown) (unknown) (no (unknown) (unknown) ED Orders (units (unkn own) date) unknown) (unknown) (no (unknown) (unknown) EXPOSURE (units (unkno wn) date) unknown) (unknown) (no (unknown) (unknown) Emergency Report (units (unknown) date) unknown) (unknown) (no (unknown) (unknown) Home Medications (units (unknown) date) unknown) (unknown) (no (unknown) (unknown) INHALE 1 VIAL PER (units (unknown) date) NEBULIZER EVERY 6 unknown) HOURS NEEDED (unknown) (no (unknown) (unknown) [facility] (units (unknown) date) unknown) (unknown) (no (unknown) (unknown) [facility] (units (unknown) date) [address] [place] [address] unknown) [place] [address] (unknown) (no (unknown) (unknown) JERKING, (units (unkno wn) date) unknown) (unknown) (no (unknown) (unknown) Lab Results (units (un known) date) unknown) (unknown) (no (unknown) (unknown) Label Comments: (units (unknown) date) unknown) (unknown) (no (unknown) (unknown) Last Admin: (units (un known) date) 12/08/21 01:35 unknown) Dose: 1 tab (unknown) (no (unknown) (unknown) Last Admin: (units (un known) date) 12/08/21 02:34 unknown) Dose: 4 mg (unknown) (no (unknown) (unknown) Last Admin: (units (un known) date) 12/08/21 04:04 unknown) Dose: 0.5 mg (unknown) (no (unknown) (unknown) Last Admin: (units (un known) date) 12/08/21 05:53 unknown) Dose: 4 mg (unknown) (no (unknown) (unknown) Last Admin: (units (un known) date) 12/08/21 05:53 unknown) Dose: 40 mg (unknown) (no (unknown) (unknown) Last Infusion: (units (unknown) date) 12/08/21 04:00 unknown) Dose: 0 mls/hr (unknown) (no (unknown) (unknown) Launch?Image (units (u nknown) date) unknown) (unknown) (no (unknown) (unknown) MINUTES (units (unkno wn) date) unknown) (unknown) (no (unknown) (unknown) NAUSEA W/I (units (unk nown) date) unknown) (unknown) (no (unknown) (unknown) Point of Care (units ( unknown) date) Testing unknown) (unknown) (no (unknown) (unknown) Previous Rx's (units ( unknown) date) unknown) (unknown) (no (unknown) (unknown) Rx Instructions: (units (unknown) date) unknown) (unknown) (no (unknown) (unknown) Signed (units (unkno wn) date) unknown) (unknown) (no (unknown) (unknown) Spouse Milana (units (u nknown) date) called + reported unknown) patient not taking it regularly. (unknown) (no (unknown) (unknown) Stop: 12/08/21 (units (unknown) date) 01:26 unknown) (unknown) (no (unknown) (unknown) Stop: 12/08/21 (units (unknown) date) 02:32 unknown) (unknown) (no (unknown) (unknown) Stop: 12/08/21 (units (unknown) date) 04:01 unknown) (unknown) (no (unknown) (unknown) Stop: 12/08/21 (units (unknown) date) 05:47 unknown) (unknown) (no (unknown) (unknown) Stop: 12/08/21 (units (unknown) date) 05:50 unknown) (unknown) (no (unknown) (unknown) Stop: 12/08/21 (units (unknown) date) 06:04 unknown) (unknown) (no (unknown) (unknown) Vital Signs - 8 hr (units (unknown) date) unknown) (unknown) (no (unknown) (unknown) W/EXTENDED (units (unk nown) date) unknown) (unknown) (no (unknown) (unknown) apply to single (units (unknown) date) elbow, wrist or unknown) hand; for hand includes palm/fingers/back of (unknown) (no (unknown) (unknown) patient states (units (unknown) date) weaning off. unknown) (unknown) (no (unknown) (unknown) take 1 tablet by (units (unknown) date) mouth once daily unknown) (unknown) (no (unknown) (unknown) take 1 tablet by (units (unknown) date) mouth twice a day unknown) (unknown) (no (unknown) (unknown) (no value) (units (unk nown) date) unknown) (unknown) (no (unknown) (unknown) 12/07/21 12/07/21 (units (unknown) date) 12/07/21 unknown) Range/Units (unknown) (no (unknown) (unknown) 12/07/21 12/08/21 (units (unknown) date) Range/Units unknown) (unknown) (no (unknown) (unknown) 23:05 23:05 23:05 (units (unknown) date) unknown) (unknown) (no (unknown) (unknown) 23:05 23:44 23:57 (units (unknown) date) unknown) (unknown) (no (unknown) (unknown) 23:57 01:33 (units (un known) date) unknown) (unknown) (no (unknown) (unknown) Zyrtec 10 mg (units (u nknown) date) Capsule unknown) (unknown) (no (unknown) (unknown) acetaminophen (units ( unknown) date) [Athenol] 325 mg unknown) tablet (unknown) (no (unknown) (unknown) acetaminophen-code (units (unknown) date) ine 300-30 mg unknown) tablet (unknown) (no (unknown) (unknown) albuterol sulfate (units (unknown) date) 1.25 mg/3 mL unknown) solution for nebulization (unknown) (no (unknown) (unknown) benzonatate (units (un known) date) [Tessalon Perles] unknown) 100 mg capsule (unknown) (no (unknown) (unknown) cefdinir 300 mg (units (unknown) date) capsule unknown) (unknown) (no (unknown) (unknown) diclofenac sodium (units (unknown) date) 1 % gel unknown) (unknown) (no (unknown) (unknown) ferrous sulfate (units (unknown) date) 325 mg (65 mg iron) unknown) tablet,delayed release (DR/EC) (unknown) (no (unknown) (unknown) fluticasone (units (un known) date) propionate 16 GM unknown) spray,suspension (unknown) (no (unknown) (unknown) furosemide [Lasix] (units (unknown) date) 40 mg tablet unknown) (unknown) (no (unknown) (unknown) glipizide (units (unkn own) date) [Glucotrol XL] 2.5 unknown) mg tablet extended release 24 hr (unknown) (no (unknown) (unknown) levalbuterol HCl (units (unknown) date) 1.25 mg/3 mL unknown) solution for nebulization (unknown) (no (unknown) (unknown) levalbuterol (units (u nknown) date) tartrate [Xopenex unknown) HFA] 45 mcg/actuation HFA aerosol inhaler (unknown) (no (unknown) (unknown) meclizine 25 mg (units (unknown) date) tablet unknown) (unknown) (no (unknown) (unknown) methocarbamol 500 (units (unknown) date) mg tablet unknown) (unknown) (no (unknown) (unknown) metoprolol (units (unk nown) date) tartrate 100 mg unknown) tablet (unknown) (no (unknown) (unknown) multivitamin (units (u nknown) date) [Multiple Vitamins] unknown) 1 EACH tablet (unknown) (no (unknown) (unknown) oxycodone 5 mg (units (unknown) date) Tablet unknown) (unknown) (no (unknown) (unknown) oxycodone-acetamin (units (unknown) date) ophen [Percocet] unknown) 5-325 mg tablet (unknown) (no (unknown) (unknown) prednisone 20 mg (units (unknown) date) tablet unknown) (unknown) (no (unknown) (unknown) prednisone 50 mg (units (unknown) date) tablet unknown) (unknown) (no (unknown) (unknown) trazodone 100 mg (units (unknown) date) tablet unknown) (unknown) (no (unknown) (unknown) 12/07/21 (units (unkno wn) date) unknown) (unknown) (no (unknown) (unknown) Medication (units (unk nown) date) Instructions unknown) Recorded (unknown) (no (unknown) (unknown) Medication (units (unk nown) date) Instructions unknown) Recorded Confirmed (unknown) (no (unknown) (unknown) been contacted and (units (unknown) date) she will be able to unknown) come pick him up in the morning. (unknown) (no (unknown) (unknown) facet (units (unkno wn) date) unknown) (unknown) (no (unknown) (unknown) junction (units (unkno wn) date) unknown) (unknown) (no (unknown) (unknown) of (units (unkno wn) date) unknown) (unknown) (no (unknown) (unknown) rales, or rhonchi. (units (unknown) date) unknown) (unknown) (no (unknown) (unknown) (Athenol) (units (unkn own) date) unknown) (unknown) (no (unknown) (unknown) (More??) (units (unkno wn) date) unknown) (unknown) (no (unknown) (unknown) (Tessalon Perles) (units (unknown) date) unknown) (unknown) (no (unknown) (unknown) (Xopenex HFA) (units ( unknown) date) unknown) (unknown) (no (unknown) (unknown) - (units (unkno wn) date) unknown) (unknown) (no (unknown) (unknown) [id number] (units (unkn own) date) unknown) (unknown) (no (unknown) (unknown) 08/11/20 (units (unkno wn) date) unknown) (unknown) (no (unknown) (unknown) 08/16/20 (units (unkno wn) date) unknown) (unknown) (no (unknown) (unknown) 08/28/20 (units (unkno wn) date) unknown) (unknown) (no (unknown) (unknown) 09/15/21 (units (unkno wn) date) unknown) (unknown) (no (unknown) (unknown) 10/07/21 (units (unkno wn) date) unknown) (unknown) (no (unknown) (unknown) 10/08/21 (units (unkno wn) date) unknown) (unknown) (no (unknown) (unknown) 10/31/20 (units (unkno wn) date) unknown) (unknown) (no (unknown) (unknown) 11/04/20 (units (unkno wn) date) unknown) (unknown) (no (unknown) (unknown) 11/07/20 (units (unkno wn) date) unknown) (unknown) (no (unknown) (unknown) 11/19/21 (units (unkno wn) date) unknown) (unknown) (no (unknown) (unknown) 11/22/20 (units (unkno wn) date) unknown) (unknown) (no (unknown) (unknown) 11/28/21 (units (unkno wn) date) unknown) (unknown) (no (unknown) (unknown) 12/07/21 (units (unkno wn) date) unknown) (unknown) (no (unknown) (unknown) 12/07/21 23:05 (units (unknown) date) unknown) (unknown) (no (unknown) (unknown) 12/07/21 23:21 (units (unknown) date) unknown) (unknown) (no (unknown) (unknown) 12/07/21 23:44 (units (unknown) date) unknown) (unknown) (no (unknown) (unknown) 12/07/21 23:57 (units (unknown) date) unknown) (unknown) (no (unknown) (unknown) 12/08/21 03:22 (units (unknown) date) unknown) (unknown) (no (unknown) (unknown) 12/28/20 (units (unkno wn) date) unknown) (unknown) (no (unknown) (unknown) 05:37 (units (unkno wn) date) unknown) (unknown) (no (unknown) (unknown) 03/05/21 (units (unkno wn) date) unknown) (unknown) (no (unknown) (unknown) 04/16/21 (units (unkno wn) date) unknown) (unknown) (no (unknown) (unknown) 0RF (units (unkno wn) date) unknown) (unknown) (no (unknown) (unknown) 1. No acute (units (un known) date) intracranial unknown) abnormality. (unknown) (no (unknown) (unknown) 1.? No acute (units (u nknown) date) fracture or unknown) subluxation. (unknown) (no (unknown) (unknown) 12 point review of (units (unknown) date) systems is negative unknown) except for those stated above (unknown) (no (unknown) (unknown) 07/18/20 (units (unkno wn) date) unknown) (unknown) (no (unknown) (unknown) 2. Bony remodeling (units (unknown) date) in the left unknown) maxillary sinus redemonstrated consistent with (unknown) (no (unknown) (unknown) 2. Postsurgical (units (unknown) date) changes unknown) redemonstrated throughout the cervical spine with fusion (unknown) (no (unknown) (unknown) 23:17 12/08/21 (units (unknown) date) unknown) (unknown) (no (unknown) (unknown) 3. Mild cerebral (units (unknown) date) volume loss.? 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 (units (unkno wn) date) unknown) (unknown) (no (unknown) (unknown) ? (units (unkno wn) date) unknown) (unknown) (no (unknown) (unknown) ?Minimal (units (unkno wn) date) anterolisthesis unknown) also demonstrated at T1-T2.? Findings are similar to (unknown) (no (unknown) (unknown) ACDF at (units (unkno wn) date) unknown) (unknown) (no (unknown) (unknown) ALT (<50) (units ( unknown) date) IU/L unknown) (unknown) (no (unknown) (unknown) ALT (<50) IU/L (units (unknown) date) unknown) (unknown) (no (unknown) (unknown) ALT 31 (<50) (units (unknown) date) IU/L unknown) (unknown) (no (unknown) (unknown) ANTIBIOTICS)] (units ( unknown) date) unknown) (unknown) (no (unknown) (unknown) AST (17-59) (units (unknown) date) IU/L unknown) (unknown) (no (unknown) (unknown) AST (17-59) (units (unknown) date) IU/L unknown) (unknown) (no (unknown) (unknown) AST 32 (17-59) (units (unknown) date) IU/L unknown) (unknown) (no (unknown) (unknown) Accession Number: (units (unknown) date) [id number] ?? unknown) (unknown) (no (unknown) (unknown) Accession Number: (units (unknown) date) [id number] ?? unknown) (unknown) (no (unknown) (unknown) Acct:[id number] (units (unknown) date) unknown) (unknown) (no (unknown) (unknown) Acetaminophen (units ( unknown) date) (10-30) ug/mL unknown) (unknown) (no (unknown) (unknown) Acetaminophen (units ( unknown) date) (10-30) ug/mL unknown) (unknown) (no (unknown) (unknown) Acetaminophen < (units (unknown) date) 10 (10-30) ug/mL unknown) (unknown) (no (unknown) (unknown) Acetaminophen Stat (units (unknown) date) unknown) (unknown) (no (unknown) (unknown) Acetaminophen/Code (units (unknown) date) ine Phosphate unknown) (Codeine/Acetaminop hen 30/300 Tablet) 1 tab PO (unknown) (no (unknown) (unknown) Achalasia (units (unkn own) date) unknown) (unknown) (no (unknown) (unknown) Age/Sex: 76 / M (units (unknown) date) unknown) (unknown) (no (unknown) (unknown) Age/Sex: 76 / M (units (unknown) date) unknown) (unknown) (no (unknown) (unknown) Albumin (units (unkno wn) date) (3.5-5.0) g/dL unknown) (unknown) (no (unknown) (unknown) Albumin (units (unkno wn) date) (3.5-5.0) g/dL unknown) (unknown) (no (unknown) (unknown) Albumin 4.1 (units ( unknown) date) (3.5-5.0) g/dL unknown) (unknown) (no (unknown) (unknown) Albumin/Globulin (units (unknown) date) Ratio (1.0-2.8) unknown) (unknown) (no (unknown) (unknown) Albumin/Globulin (units (unknown) date) Ratio (1.0-2.8) unknown) (unknown) (no (unknown) (unknown) Albumin/Globulin (units (unknown) date) Ratio 1.4 unknown) (1.0-2.8) (unknown) (no (unknown) (unknown) Alkaline (units (unkno wn) date) Phosphatase unknown) (38-126) U/L (unknown) (no (unknown) (unknown) Alkaline (units (unkno wn) date) Phosphatase unknown) (38-126) U/L (unknown) (no (unknown) (unknown) Alkaline (units (unkno wn) date) Phosphatase 64 unknown) (38-126) U/L (unknown) (no (unknown) (unknown) Allergy/Adv: (units (u nknown) date) celecoxib, latex, unknown) Sulfa (Sulfonamide Antibiotics), varenicline, (unknown) (no (unknown) (unknown) Allergy/AdvReac (units (unknown) date) Type Severity unknown) Reaction Status Date / Time (unknown) (no (unknown) (unknown) Anginal pain (units (u nknown) date) unknown) (unknown) (no (unknown) (unknown) Ankle X-Ray (units (un known) date) (Signed) unknown) (unknown) (no (unknown) (unknown) Antibiotics) (units (u nknown) date) unknown) (unknown) (no (unknown) (unknown) Approved by: (units (u nknown) date) Maxim Valadez, unknown) Clifford on 12/07/2021 at 21:44 ? (unknown) (no (unknown) (unknown) Approved by: (units (u nknown) date) Maxim Valadez, unknown) M.D. on 12/07/2021 at 21:48 ? (unknown) (no (unknown) (unknown) Asthma (units (unkno wn) date) unknown) (unknown) (no (unknown) (unknown) Atrial (units (unkno wn) date) fibrillation unknown) (unknown) (no (unknown) (unknown) BACK: Nontender (units (unknown) date) without deformity unknown) or crepitance. No flank tenderness. (unknown) (no (unknown) (unknown) BUN (9-20) (units (unknown) date) mg/dL unknown) (unknown) (no (unknown) (unknown) BUN (9-20) (units ( unknown) date) mg/dL unknown) (unknown) (no (unknown) (unknown) BUN 21 H (units (unk nown) date) (9-20) mg/dL unknown) (unknown) (no (unknown) (unknown) BUN/Creatinine (units (unknown) date) Ratio (6-22) unknown) (unknown) (no (unknown) (unknown) BUN/Creatinine (units (unknown) date) Ratio (6-22) unknown) (unknown) (no (unknown) (unknown) BUN/Creatinine (units (unknown) date) Ratio 23.9 H unknown) (6-22) (unknown) (no (unknown) (unknown) Baso # (Auto) (units ( unknown) date) (0-100) /uL unknown) (unknown) (no (unknown) (unknown) Baso # (Auto) (units ( unknown) date) (0-100) /uL unknown) (unknown) (no (unknown) (unknown) Baso # (Auto) 100 (units (unknown) date) (0-100) /uL unknown) (unknown) (no (unknown) (unknown) Baso % (Auto) (units ( unknown) date) (0-2) % unknown) (unknown) (no (unknown) (unknown) Baso % (Auto) (units ( unknown) date) (0-2) % unknown) (unknown) (no (unknown) (unknown) Baso % (Auto) 0.8 (units (unknown) date) (0-2) % unknown) (unknown) (no (unknown) (unknown) Blood Culture Stat (units (unknown) date) unknown) (unknown) (no (unknown) (unknown) Blood Pressure (units (unknown) date) 159/98 H 12/07/21 unknown) 20:23 (unknown) (no (unknown) (unknown) Blood Pressure (units (unknown) date) 207/103 H unknown) (unknown) (no (unknown) (unknown) Bones:? No (units (unk nown) date) fractures or unknown) subluxation.? There is anterolisthesis at C2-C3 (unknown) (no (unknown) (unknown) Brain MRI (Signed) (units (unknown) date) unknown) (unknown) (no (unknown) (unknown) Brain:? No (units (unkn own) date) intracranial unknown) hemorrhage, mass, or mass effect.? The adams-white matter (unknown) (no (unknown) (unknown) C4-C5 and C7-T1.? (units (unknown) date) There is also unknown) fusion at C5-C6 and C6-C7.? There is mild to (unknown) (no (unknown) (unknown) CARDIOVASCULAR: (units (unknown) date) Denies chest pain, unknown) palpitations, orthopnea, edema, (unknown) (no (unknown) (unknown) CARDIOVASCULAR: (units (unknown) date) Regular rate and unknown) rhythm without murmurs, gallops, or rubs. (unknown) (no (unknown) (unknown) COMPARISON:? (units (u nknown) date) [facility], unknown) CT, CT CERVICAL SPINE WO [facility], 04/16/2021, 12:21. (unknown) (no (unknown) (unknown) COMPARISON:? (units (u nknown) date) [facility], unknown) CT, CT HEAD/BRAIN WO [facility], 04/16/2021, 12:21. (unknown) (no (unknown) (unknown) COPD (chronic (units ( unknown) date) obstructive unknown) pulmonary disease) (unknown) (no (unknown) (unknown) COVID19 -Nasal (units (unknown) date) RAPID/Pre-Proc Stat unknown) (unknown) (no (unknown) (unknown) CSF spaces:? Basal (units (unknown) date) cisterns are unknown) patent.? The ventricles are symmetric in size (unknown) (no (unknown) (unknown) CT - cervical (units ( unknown) date) spine: unknown) (unknown) (no (unknown) (unknown) CT lumbar spine wo (units (unknown) date) con Stat unknown) (unknown) (no (unknown) (unknown) CT scan - head: (units (unknown) date) unknown) (unknown) (no (unknown) (unknown) Calcium (units (unkno wn) date) (8.4-10.2) mg/dL unknown) (unknown) (no (unknown) (unknown) Calcium (units (unkno wn) date) (8.4-10.2) mg/dL unknown) (unknown) (no (unknown) (unknown) Calcium 8.4 (units ( unknown) date) (8.4-10.2) mg/dL unknown) (unknown) (no (unknown) (unknown) Call,Francisco J (units (unk nown) date) unknown) (unknown) (no (unknown) (unknown) Carbon Dioxide (units (unknown) date) (22-32) mmol/L unknown) (unknown) (no (unknown) (unknown) Carbon Dioxide (units (unknown) date) (22-32) mmol/L unknown) (unknown) (no (unknown) (unknown) Carbon Dioxide (units (unknown) date) 27 (22-32) unknown) mmol/L (unknown) (no (unknown) (unknown) Cervical Spine CT (units (unknown) date) (Signed) unknown) (unknown) (no (unknown) (unknown) Cervical spinal (units (unknown) date) stenosis unknown) (unknown) (no (unknown) (unknown) Chest CTA (Signed) (units (unknown) date) unknown) (unknown) (no (unknown) (unknown) Chest X-Ray (units (un known) date) (Signed) unknown) (unknown) (no (unknown) (unknown) Chest/Abdomen/Pelv (units (unknown) date) is CTA (Signed) unknown) (unknown) (no (unknown) (unknown) Chief Complaint: (units (unknown) date) Trauma unknown) (unknown) (no (unknown) (unknown) Chloride (units (unkno wn) date) (98-107) mmol/L unknown) (unknown) (no (unknown) (unknown) Chloride (units (unkno wn) date) (98-107) mmol/L unknown) (unknown) (no (unknown) (unknown) Chloride 104 (units (unknown) date) (98-107) mmol/L unknown) (unknown) (no (unknown) (unknown) 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 (10/22/16) (unknown) (no (unknown) (unknown) Zeina Saavedra (units (u nknown) date) unknown) (unknown) (no (unknown) (unknown) Complete Blood (units (unknown) date) Count AUTO DIFF unknown) Stat (unknown) (no (unknown) (unknown) Comprehensive (units ( unknown) date) Metabolic Panel unknown) Stat (unknown) (no (unknown) (unknown) Coronary artery (units (unknown) date) disease unknown) (unknown) (no (unknown) (unknown) Course (units (unkno wn) date) unknown) (unknown) (no (unknown) (unknown) Creatinine (units (unk nown) date) (0.66-1.25) mg/dL unknown) (unknown) (no (unknown) (unknown) Creatinine (units (unk nown) date) (0.66-1.25) mg/dL unknown) (unknown) (no (unknown) (unknown) Creatinine 0.88 (units (unknown) date) (0.66-1.25) mg/dL unknown) (unknown) (no (unknown) (unknown) : 1945 (units (unknown) date) Acct:[id number] unknown) (unknown) (no (unknown) (unknown) : 1945 (units (unknown) date) unknown) (unknown) (no (unknown) (unknown) Kimmy Gomez MD (units (unknown) date) [Primary Care unknown) Provider] - (unknown) (no (unknown) (unknown) Date of Service: (units (unknown) date) 12/07/21 unknown) (unknown) (no (unknown) (unknown) Departure (units (unkn own) date) unknown) (unknown) (no (unknown) (unknown) Inder Farley (units (u nknown) date) unknown) (unknown) (no (unknown) (unknown) Dictated by: (units (u nknown) date) Maxim Valadez, unknownRui Horton on 12/07/2021 at 21:42 ? ? (unknown) (no (unknown) (unknown) Dictated by: (units (u nknown) date) Maxim Valadez, unknownRui Horton on 12/07/2021 at 21:44 ? ? (unknown) (no (unknown) (unknown) Discharge Plan (units (unknown) date) unknown) (unknown) (no (unknown) (unknown) Discontinued (units (u nknown) date) Medications unknown) (unknown) (no (unknown) (unknown) ENT: Nose without (units (unknown) date) bleeding, purulent unknown) drainage. No nasal septal hematoma Throat (unknown) (no (unknown) (unknown) ER Physician: (units ( unknown) date) Jung Dejesus D.O. unknown) (unknown) (no (unknown) (unknown) EXTREMITIES: No (units (unknown) date) edema or joint unknown) tenderness. (unknown) (no (unknown) (unknown) EYES: Pupils equal (units (unknown) date) round and reactive. unknown) No hyphema Extraocular motions intact. (unknown) (no (unknown) (unknown) Echocardiogram (units (unknown) date) Ultrasound (Signed) unknown) (unknown) (no (unknown) (unknown) Eos # (Auto) (units (u nknown) date) (0-450) /uL unknown) (unknown) (no (unknown) (unknown) Eos # (Auto) (units (u nknown) date) (0-450) /uL unknown) (unknown) (no (unknown) (unknown) Eos # (Auto) 100 (units (unknown) date) (0-450) /uL unknown) (unknown) (no (unknown) (unknown) Eos % (Auto) (units (u nknown) date) (2-4) % unknown) (unknown) (no (unknown) (unknown) Eos % (Auto) (units (u nknown) date) (2-4) % unknown) (unknown) (no (unknown) (unknown) Eos % (Auto) 2.0 (units (unknown) date) (2-4) % unknown) (unknown) (no (unknown) (unknown) Estimated GFR (units ( unknown) date) (>60) mL/min unknown) (unknown) (no (unknown) (unknown) Estimated GFR (units ( unknown) date) (>60) mL/min unknown) (unknown) (no (unknown) (unknown) Estimated GFR > (units (unknown) date) 60 (>60) mL/min unknown) (unknown) (no (unknown) (unknown) Ethanol (ETOH) (units (unknown) date) Stat unknown) (unknown) (no (unknown) (unknown) Ethyl Alcohol ( (units (unknown) date) - 10) mg/dL unknown) (unknown) (no (unknown) (unknown) Ethyl Alcohol ( (units (unknown) date) - 10) mg/dL unknown) (unknown) (no (unknown) (unknown) Ethyl Alcohol (units ( unknown) date) 111 H ( - 10) unknown) mg/dL (unknown) (no (unknown) (unknown) Exam (units (unkno wn) date) unknown) (unknown) (no (unknown) (unknown) Exam Narrative: (units (unknown) date) unknown) (unknown) (no (unknown) (unknown) FINDINGS:? (units (unk nown) date) unknown) (unknown) (no (unknown) (unknown) Family History (units (unknown) date) (Reviewed 12/08/21 unknown) @ 01:57 by Jung Dejesus DO) (unknown) (no (unknown) (unknown) Foot X-Ray (units (unk nown) date) (Signed) unknown) (unknown) (no (unknown) (unknown) GASTROINTESTINAL: (units (unknown) date) Abdomen soft, unknown) non-tender, nondistended. (unknown) (no (unknown) (unknown) GASTROINTESTINAL: (units (unknown) date) Denies nausea, unknown) vomiting, abdominal pain, diarrhea, (unknown) (no (unknown) (unknown) GENERAL: Denies (units (unknown) date) chills, fatigue, unknown) malaise, fever, sweats. (unknown) (no (unknown) (unknown) GENERAL: [76 year (units (unknown) date) old patient appears unknown) stated age. Well-developed patient, in (unknown) (no (unknown) (unknown) : Denies (units (unk nown) date) dysuria, frequency, unknown) incontinence, hematuria, urinary retention. (unknown) (no (unknown) (unknown) General (units (unkno wn) date) unknown) (unknown) (no (unknown) (unknown) GenericComposite[P (units (unknown) date) lt Count unknown) (150-400) X10^3/uL ] (unknown) (no (unknown) (unknown) GenericComposite[P (units (unknown) date) lt Count unknown) (150-400) X10^3/uL ] (unknown) (no (unknown) (unknown) GenericComposite[P (units (unknown) date) lt Count 241 unknown) (150-400) X10^3/uL ] (unknown) (no (unknown) (unknown) GenericComposite[R (units (unknown) date) BC (4.5-5.9) unknown) X10^6/uL ] (unknown) (no (unknown) (unknown) GenericComposite[R (units (unknown) date) BC (4.5-5.9) unknown) X10^6/uL ] (unknown) (no (unknown) (unknown) GenericComposite[R (units (unknown) date) BC 4.93 unknown) (4.5-5.9) X10^6/uL ] (unknown) (no (unknown) (unknown) GenericComposite[W (units (unknown) date) BC (4.5-11.0) unknown) X10^3/uL ] (unknown) (no (unknown) (unknown) GenericComposite[W (units (unknown) date) BC (4.5-11.0) unknown) X10^3/uL ] (unknown) (no (unknown) (unknown) GenericComposite[W (units (unknown) date) BC 7.4 unknown) (4.5-11.0) X10^3/uL ] (unknown) (no (unknown) (unknown) Globulin (units (unkno wn) date) (1.7-4.1) g/dL unknown) (unknown) (no (unknown) (unknown) Globulin (units (unkno wn) date) (1.7-4.1) g/dL unknown) (unknown) (no (unknown) (unknown) Globulin 2.9 (units (unknown) date) (1.7-4.1) g/dL unknown) (unknown) (no (unknown) (unknown) Glucose (units (unkno wn) date) (80-110) mg/dL unknown) (unknown) (no (unknown) (unknown) Glucose (units (unkno wn) date) (80-110) mg/dL unknown) (unknown) (no (unknown) (unknown) Glucose 124 H (units (unknown) date) (80-110) mg/dL unknown) (unknown) (no (unknown) (unknown) Glucose POC 118 (units (unknown) date) unknown) (unknown) (no (unknown) (unknown) H/O arthroscopic (units (unknown) date) knee surgery unknown) (11/14/17) (unknown) (no (unknown) (unknown) HEAD: Superficial (units (unknown) date) abrasion on the unknown) bridge of his nose, no other obvious (unknown) (no (unknown) (unknown) HEENT: See HPI (units (unknown) date) unknown) (unknown) (no (unknown) (unknown) HPI - Fall (units (unk nown) date) unknown) (unknown) (no (unknown) (unknown) HPI Narrative: (units (unknown) date) unknown) (unknown) (no (unknown) (unknown) Hand X-Ray (units (unk nown) date) (Signed) unknown) (unknown) (no (unknown) (unknown) Jean Oneill (units (unknown) date) unknown) (unknown) (no (unknown) (unknown) Hct (41-53) % (units (unknown) date) unknown) (unknown) (no (unknown) (unknown) Hct (41-53) % (units (unknown) date) unknown) (unknown) (no (unknown) (unknown) Hct 46.0 (units (unkn own) date) (41-53) % unknown) (unknown) (no (unknown) (unknown) Head CT (Signed) (units (unknown) date) unknown) (unknown) (no (unknown) (unknown) Head/Neck CTA (units ( unknown) date) (Signed) unknown) (unknown) (no (unknown) (unknown) Hgb (units (unkno wn) date) (13.5-17.5) g/dL unknown) (unknown) (no (unknown) (unknown) Hgb (13.5-17.5) (units (unknown) date) g/dL unknown) (unknown) (no (unknown) (unknown) Hgb 15.6 (units (unkn own) date) (13.5-17.5) g/dL unknown) (unknown) (no (unknown) (unknown) History of Present (units (unknown) date) Illness unknown) (unknown) (no (unknown) (unknown) History of aortic (units (unknown) date) dissection unknown) () (unknown) (no (unknown) (unknown) History of (units (unk nown) date) arthroplasty of unknown) right knee (unknown) (no (unknown) (unknown) 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 (unknown) (no (unknown) (unknown) History of cardiac (units (unknown) date) cath () unknown) (unknown) (no (unknown) (unknown) History of (units (unk nown) date) esophageal surgery unknown) (unknown) (no (unknown) (unknown) History of (units (unk nown) date) incision and unknown) drainage () (unknown) (no (unknown) (unknown) History of prior (units (unknown) date) ablation treatment unknown) () (unknown) (no (unknown) (unknown) History of surgery (units (unknown) date) unknown) (unknown) (no (unknown) (unknown) Vidal,Ronni (units (unk nown) date) unknown) (unknown) (no (unknown) (unknown) Hx of (units (unkno wn) date) cholecystectomy unknown) (unknown) (no (unknown) (unknown) Hx of hernia (units (u nknown) date) repair unknown) (unknown) (no (unknown) (unknown) Hx of sinus (units (un known) date) surgery unknown) (unknown) (no (unknown) (unknown) Hydromorphone HCl (units (unknown) date) (Hydromorphone 0.5 unknown) Mg Inj) 0.5 mg IV NOW ONE (unknown) (no (unknown) (unknown) Hypertension (units (u nknown) date) unknown) (unknown) (no (unknown) (unknown) IMPRESSION:? (units (u nknown) date) unknown) (unknown) (no (unknown) (unknown) INDICATIONS:? (units ( unknown) date) trauma unknown) (unknown) (no (unknown) (unknown) INHIBITOR] (units (unk nown) date) unknown) (unknown) (no (unknown) (unknown) Image quality:? (units (unknown) date) Excellent.? unknown) (unknown) (no (unknown) (unknown) Image quality:? (units (unknown) date) There is motion unknown) artifact limiting evaluation.? (unknown) (no (unknown) (unknown) Imaging Data (units (u nknown) date) unknown) (unknown) (no (unknown) (unknown) Inhibitor (units (unkn own) date) MUSCLES unknown) (unknown) (no (unknown) (unknown) Initial Vital (units ( unknown) date) Signs unknown) (unknown) (no (unknown) (unknown) Initial Vital (units ( unknown) date) Signs: unknown) (unknown) (no (unknown) (unknown) Ischemic (units (unkno wn) date) cardiomyopathy unknown) (unknown) (no (unknown) (unknown) Theodore,Tl (units (unknown) date) unknown) (unknown) (no (unknown) (unknown) Shadi,Bharath (units ( unknown) date) unknown) (unknown) (no (unknown) (unknown) Knee X-Ray (units (unk nown) date) (Signed) unknown) (unknown) (no (unknown) (unknown) Lab Data (units (unkno wn) date) unknown) (unknown) (no (unknown) (unknown) Labs: (units (unkno wn) date) unknown) (unknown) (no (unknown) (unknown) Lactate (units (unkno wn) date) (0.7-2.1) mmol/L unknown) (unknown) (no (unknown) (unknown) Lactate 2.3 H (units (unknown) date) (0.7-2.1) mmol/L unknown) (unknown) (no (unknown) (unknown) Lactate 1.5 (units ( unknown) date) (0.7-2.1) mmol/L unknown) (unknown) (no (unknown) (unknown) Lactate (Lactic (units (unknown) date) Acid) Stat unknown) (unknown) (no (unknown) (unknown) KolbySatish (units (unkno wn) date) unknown) (unknown) (no (unknown) (unknown) Loc: ED (units (unkno wn) date) unknown) (unknown) (no (unknown) (unknown) Lumbar Spine MRI (units (unknown) date) (Signed) unknown) (unknown) (no (unknown) (unknown) Lymph # (Auto) (units (unknown) date) (3780-8353) /uL unknown) (unknown) (no (unknown) (unknown) Lymph # (Auto) (units (unknown) date) (1290-7092) /uL unknown) (unknown) (no (unknown) (unknown) Lymph # (Auto) (units (unknown) date) 1700 (8546-6217) unknown) /uL (unknown) (no (unknown) (unknown) Lymph % (Auto) (units (unknown) date) (25-40) % unknown) (unknown) (no (unknown) (unknown) Lymph % (Auto) (units (unknown) date) (25-40) % unknown) (unknown) (no (unknown) (unknown) Lymph % (Auto) (units (unknown) date) 23.0 L (25-40) unknown) % (unknown) (no (unknown) (unknown) MCH (26-34) (units (unknown) date) PG unknown) (unknown) (no (unknown) (unknown) MCH (26-34) PG (units (unknown) date) unknown) (unknown) (no (unknown) (unknown) MCH 31.7 (units (unkn own) date) (26-34) PG unknown) (unknown) (no (unknown) (unknown) MCHC (30-36) (units (unknown) date) % unknown) (unknown) (no (unknown) (unknown) MCHC (30-36) % (units (unknown) date) unknown) (unknown) (no (unknown) (unknown) MCHC 34.0 (units (unk nown) date) (30-36) % unknown) (unknown) (no (unknown) (unknown) MCV (80-100) (units (unknown) date) fL unknown) (unknown) (no (unknown) (unknown) MCV (80-100) (units (unknown) date) fL unknown) (unknown) (no (unknown) (unknown) MCV 93.3 (units (unkn own) date) (80-100) fL unknown) (unknown) (no (unknown) (unknown) MDM - Fall (units (unk nown) date) unknown) (unknown) (no (unknown) (unknown) MR#: [id number] (units (unknown) date) unknown) (unknown) (no (unknown) (unknown) MUSCULOSKELETAL: (units (unknown) date) See HPI unknown) (unknown) (no (unknown) (unknown) Medical History (units (unknown) date) (Reviewed 12/08/21 unknown) @ 01:57 by Jung Dejesus DO) (unknown) (no (unknown) (unknown) Cheryl Husain (units (unknown) date) unknown) (unknown) (no (unknown) (unknown) Mode of arrival: (units (unknown) date) EMS unknown) (unknown) (no (unknown) (unknown) [place] # (Auto) (units ( unknown) date) (0-900) /uL unknown) (unknown) (no (unknown) (unknown) [place] # (Auto) (units ( unknown) date) (0-900) /uL unknown) (unknown) (no (unknown) (unknown) [place] # (Auto) 700 (units (unknown) date) (0-900) /uL unknown) (unknown) (no (unknown) (unknown) [place] % (Auto) (units ( unknown) date) (3-14) % unknown) (unknown) (no (unknown) (unknown) [place] % (Auto) (units ( unknown) date) (3-14) % unknown) (unknown) (no (unknown) (unknown) [place] % (Auto) 9.5 (units (unknown) date) (3-14) % unknown) (unknown) (no (unknown) (unknown) Mother (units (unknown) date) Stroke unknown) (unknown) (no (unknown) (unknown) NECK: Trachea (units ( unknown) date) midline. Non tender unknown) (unknown) (no (unknown) (unknown) NEURO: Cranial (units (unknown) date) nerves 2-12 grossly unknown) intact (unknown) (no (unknown) (unknown) NEUROLOGIC: Denies (units (unknown) date) weakness, headache, unknown) numbness, change in speech, confusion, (unknown) (no (unknown) (unknown) NOW ONE (units (unkno wn) date) unknown) (unknown) (no (unknown) (unknown) Narcotic (units (unkno wn) date) dependence unknown) (unknown) (no (unknown) (unknown) Narrative (units (unkn own) date) unknown) (unknown) (no (unknown) (unknown) Narrative: (units (unk nown) date) unknown) (unknown) (no (unknown) (unknown) Neck pain, chronic (units (unknown) date) unknown) (unknown) (no (unknown) (unknown) Neut # (Auto) (units ( unknown) date) (1575-6036) /uL unknown) (unknown) (no (unknown) (unknown) Neut # (Auto) (units ( unknown) date) (5095-2862) /uL unknown) (unknown) (no (unknown) (unknown) Neut # (Auto) (units ( unknown) date) 4800 (3392-7415) unknown) /uL (unknown) (no (unknown) (unknown) Neut % (Auto) (units ( unknown) date) (50-75) % unknown) (unknown) (no (unknown) (unknown) Neut % (Auto) (units ( unknown) date) (50-75) % unknown) (unknown) (no (unknown) (unknown) Neut % (Auto) (units ( unknown) date) 64.7 (50-75) % unknown) (unknown) (no (unknown) (unknown) No Action (units (unkn own) date) unknown) (unknown) (no (unknown) (unknown) No scleral (units (unk nown) date) icterus. No unknown) injection or drainage. (unknown) (no (unknown) (unknown) Noncontrast 3 mm (units (unknown) date) thick sections unknown) acquired from the skull base to the T4 level.? (unknown) (no (unknown) (unknown) Noncontrast 4.5 mm (units (unknown) date) thick angled axial unknown) sections acquired from the foramen magnum (unknown) (no (unknown) (unknown) Ondansetron HCl (units (unknown) date) (Ondansetron 4 Mg/2 unknown) Ml Inj) 4 mg IV NOW ONE (unknown) (no (unknown) (unknown) Ordered: (units (unkno wn) date) unknown) (unknown) (no (unknown) (unknown) Ordering Provider: (units (unknown) date) Jung Dejesus D.O. unknown) (unknown) (no (unknown) (unknown) Orders (units (unkno wn) date) unknown) (unknown) (no (unknown) (unknown) PROCEDURE:? CT (units (unknown) date) CERVICAL SPINE WO unknown) CON (unknown) (no (unknown) (unknown) PROCEDURE:? CT (units (unknown) date) HEAD/BRAIN WO CON unknown) (unknown) (no (unknown) (unknown) PSYCHIATRIC: No (units (unknown) date) concerning unknown) psychosocial issues. (unknown) (no (unknown) (unknown) Pantoprazole (units (u nknown) date) Sodium unknown) (Pantoprazole 40 Mg Vial) 40 mg IV NOW ONE (unknown) (no (unknown) (unknown) Patient History (units (unknown) date) unknown) (unknown) (no (unknown) (unknown) Patient observed (units (unknown) date) for some time unknown) before labs added. He has continued to have a (unknown) (no (unknown) (unknown) Patient: (units (unkno wn) date) Dominic Viveros unknown) MR#: M (unknown) (no (unknown) (unknown) Patient: (units (unkno wn) date) Dominic Viveros unknown) (unknown) (no (unknown) (unknown) Maxim Valadez (units (un known) date) unknown) (unknown) (no (unknown) (unknown) Phenobarbital (units ( unknown) date) (Phenobarbital 65 unknown) Mg/Ml Vial) 260 mg IV NOW ONE (unknown) (no (unknown) (unknown) Potassium (units (unkn own) date) (3.4-5.1) mmol/L unknown) (unknown) (no (unknown) (unknown) Potassium (units (unkn own) date) (3.4-5.1) mmol/L unknown) (unknown) (no (unknown) (unknown) Potassium 4.5 (units (unknown) date) (3.4-5.1) mmol/L unknown) (unknown) (no (unknown) (unknown) Prescriptions: (units (unknown) date) unknown) (unknown) (no (unknown) (unknown) Procedure: CT (units ( unknown) date) cervical spine wo unknown) con (unknown) (no (unknown) (unknown) Procedure: CT (units ( unknown) date) head/brain wo con unknown) (unknown) (no (unknown) (unknown) Prolactin (units (unkn own) date) (3.7-17.9) ng/mL unknown) (unknown) (no (unknown) (unknown) Prolactin (units (unkn own) date) (3.7-17.9) ng/mL unknown) (unknown) (no (unknown) (unknown) Prolactin 18.9 H (units (unknown) date) (3.7-17.9) ng/mL unknown) (unknown) (no (unknown) (unknown) Prolactin Stat (units (unknown) date) unknown) (unknown) (no (unknown) (unknown) Pulse Oximetry 92 (units (unknown) date) 12/07/21 20:23 unknown) (unknown) (no (unknown) (unknown) Pulse Oximetry 91 (units (unknown) date) 96 unknown) (unknown) (no (unknown) (unknown) Pulse Rate 88 (units (unknown) date) 12/07/21 20:23 unknown) (unknown) (no (unknown) (unknown) Pulse Rate 85 67 (units (unknown) date) unknown) (unknown) (no (unknown) (unknown) RDW (units (unkno wn) date) (11.6-14.8) % unknown) (unknown) (no (unknown) (unknown) RDW (11.6-14.8) (units (unknown) date) % unknown) (unknown) (no (unknown) (unknown) RDW 13.7 (units (unkn own) date) (11.6-14.8) % unknown) (unknown) (no (unknown) (unknown) RESPIRATORY: Clear (units (unknown) date) to auscultation. unknown) Breath sounds equal bilaterally. No wheezes, (unknown) (no (unknown) (unknown) RESPIRATORY: (units (u nknown) date) Denies dyspnea, unknown) cough, wheezing, hemoptysis, sputum. (unknown) (no (unknown) (unknown) Dominic Viveros (units (unknown) date) D??76??M?? unknown) 5 (unknown) (no (unknown) (unknown) Reevaluation #1: (units (unknown) date) unknown) (unknown) (no (unknown) (unknown) Reevaluation(s) (units (unknown) date) unknown) (unknown) (no (unknown) (unknown) Referrals: (units (unk nown) date) unknown) (unknown) (no (unknown) (unknown) Related Data (units (u nknown) date) unknown) (unknown) (no (unknown) (unknown) Respiratory Rate (units (unknown) date) 17 unknown) (unknown) (no (unknown) (unknown) Respiratory Rate (units (unknown) date) 12/07/21 20:23 unknown) (unknown) (no (unknown) (unknown) Result diagrams: (units (unknown) date) unknown) (unknown) (no (unknown) (unknown) Review of Systems (units (unknown) date) unknown) (unknown) (no (unknown) (unknown) Emeka Robertson (units (unknown) date) unknown) (unknown) (no (unknown) (unknown) Sudarshan Calderon (units (u nknown) date) unknown) (unknown) (no (unknown) (unknown) S/P CABG x 3 (units (u nknown) date) () unknown) (unknown) (no (unknown) (unknown) S/P cervical (units (u nknown) date) spinal fusion unknown) (unknown) (no (unknown) (unknown) S/P lumbar fusion (units (unknown) date) unknown) (unknown) (no (unknown) (unknown) SARS-CoV-2 (PCR) (units (unknown) date) (Negative) unknown) (unknown) (no (unknown) (unknown) SARS-CoV-2 (PCR) (units (unknown) date) (Negative) unknown) (unknown) (no (unknown) (unknown) SARS-CoV-2 (PCR) (units (unknown) date) Negative unknown) (Negative) (unknown) (no (unknown) (unknown) SKIN: Denies rash, (units (unknown) date) skin lesions, or unknown) other (unknown) (no (unknown) (unknown) SKIN: No rash or (units (unknown) date) erythema of visible unknown) areas (unknown) (no (unknown) (unknown) Sagittal (units (unkno wn) date) unknown) (unknown) (no (unknown) (unknown) Salicylate Stat (units (unknown) date) unknown) (unknown) (no (unknown) (unknown) Salicylates (units (un known) date) (<20) mg/dL unknown) (unknown) (no (unknown) (unknown) Salicylates (units (un known) date) (<20) mg/dL unknown) (unknown) (no (unknown) (unknown) Salicylates < (units (unknown) date) 1.0 (<20) mg/dL unknown) (unknown) (no (unknown) (unknown) Signed By: (units (unk nown) date) unknown) (unknown) (no (unknown) (unknown) Sinuses:? (units (unkn own) date) Visualized sinuses unknown) redemonstrate wall thickening and mucoperiosteal (unknown) (no (unknown) (unknown) Skull and face:? (units (unknown) date) Calvarium and unknown) visualized facial bones appear intact, without (unknown) (no (unknown) (unknown) Smoking Status: (units (unknown) date) Former smoker unknown) (unknown) (no (unknown) (unknown) Smoking Status: (units (unknown) date) Former smoker unknown) (unknown) (no (unknown) (unknown) Social History (units (unknown) date) (Reviewed 12/08/21 unknown) @ 01:57 by Jung Dejesus DO) (unknown) (no (unknown) (unknown) Sodium (units (unkno wn) date) (137-145) mmol/L unknown) (unknown) (no (unknown) (unknown) Sodium (units (unkno wn) date) (137-145) mmol/L unknown) (unknown) (no (unknown) (unknown) Sodium 140 (units (u nknown) date) (137-145) mmol/L unknown) (unknown) (no (unknown) (unknown) Sodium Chloride (units (unknown) date) (Normal Saline unknown) 0.9%) 1,000 mls @ 150 mls/hr IV CONT BLOSSOM (unknown) (no (unknown) (unknown) Soft tissues:? (units (unknown) date) Prevertebral soft unknown) tissues are normal in thickness.? No (unknown) (no (unknown) (unknown) Source: patient, (units (unknown) date) family and EMS unknown) (unknown) (no (unknown) (unknown) Stated Complaint: (units (unknown) date) Back Pain unknown) (unknown) (no (unknown) (unknown) [id number] (units (unknown) date) Reductase AdvReac unknown) Mild WEAK Verified 11/28/21 15:33 (unknown) (no (unknown) (unknown) Substance Use (units ( unknown) date) Type: does not use unknown) (unknown) (no (unknown) (unknown) Sulfa (Sulfonamide (units (unknown) date) Allergy Mild RASH unknown) Verified 11/28/21 15:33 (unknown) (no (unknown) (unknown) Surgical History (units (unknown) date) (Reviewed 12/08/21 unknown) @ 01:57 by Jung Dejesus DO) (unknown) (no (unknown) (unknown) Andre Spear (units ( unknown) date) unknown) (unknown) (no (unknown) (unknown) TECHNIQUE:? (units (un known) date) unknown) (unknown) (no (unknown) (unknown) TSH (units (unkno wn) date) (0.47-4.68) uIU/mL unknown) (unknown) (no (unknown) (unknown) TSH (0.47-4.68) (units (unknown) date) uIU/mL unknown) (unknown) (no (unknown) (unknown) TSH 2.07 (units (unkn own) date) (0.47-4.68) uIU/mL unknown) (unknown) (no (unknown) (unknown) Telemetry Strips (units (unknown) date) unknown) (unknown) (no (unknown) (unknown) Temperature 97.4 (units (unknown) date) F L 12/07/21 20:23 unknown) (unknown) (no (unknown) (unknown) Temperature 97.8 (units (unknown) date) F unknown) (unknown) (no (unknown) (unknown) There is a small (units (unknown) date) right choroidal unknown) fissure cyst redemonstrated.? (unknown) (no (unknown) (unknown) There is mild (units ( unknown) date) cerebral volume unknown) loss, with resultant ventricular and sulcal (unknown) (no (unknown) (unknown) Thyroid (units (unkno wn) date) Stimulating Hormone unknown) Stat (unknown) (no (unknown) (unknown) Tibia/Fibula X-Ray (units (unknown) date) (Signed) unknown) (unknown) (no (unknown) (unknown) Time Seen by (units (u nknown) date) Provider: 12/07/21 unknown) 20:22 (unknown) (no (unknown) (unknown) Total Bilirubin (units (unknown) date) (0.2-1.3) mg/dL unknown) (unknown) (no (unknown) (unknown) Total Bilirubin (units (unknown) date) (0.2-1.3) mg/dL unknown) (unknown) (no (unknown) (unknown) Total Bilirubin (units (unknown) date) 0.9 (0.2-1.3) unknown) mg/dL (unknown) (no (unknown) (unknown) Total Protein (units ( unknown) date) (6.3-8.2) g/dL unknown) (unknown) (no (unknown) (unknown) Total Protein (units ( unknown) date) (6.3-8.2) g/dL unknown) (unknown) (no (unknown) (unknown) Total Protein (units ( unknown) date) 7.0 (6.3-8.2) unknown) g/dL (unknown) (no (unknown) (unknown) U Benzodiazepines (units (unknown) date) Scrn (Negative) unknown) (unknown) (no (unknown) (unknown) U Benzodiazepines (units (unknown) date) Scrn Positive H unknown) (Negative) (unknown) (no (unknown) (unknown) U Marijuana (THC) (units (unknown) date) Screen unknown) (Negative) (unknown) (no (unknown) (unknown) U Marijuana (THC) (units (unknown) date) Screen Negative unknown) (Negative) (unknown) (no (unknown) (unknown) U Methamphetamines (units (unknown) date) Scrn (Negative) unknown) (unknown) (no (unknown) (unknown) U Methamphetamines (units (unknown) date) Scrn Negative unknown) (Negative) (unknown) (no (unknown) (unknown) U Opiates 300ng/mL (units (unknown) date) cut (Negative) unknown) (unknown) (no (unknown) (unknown) U Opiates 300ng/mL (units (unknown) date) cut Positive H unknown) (Negative) (unknown) (no (unknown) (unknown) U Tricyclic (units (un known) date) Antidepress unknown) (Negative) (unknown) (no (unknown) (unknown) U Tricyclic (units (un known) date) Antidepress unknown) Negative (Negative) (unknown) (no (unknown) (unknown) Ur Amphetamines (units (unknown) date) Screen unknown) (Negative) (unknown) (no (unknown) (unknown) Ur Amphetamines (units (unknown) date) Screen Negative unknown) (Negative) (unknown) (no (unknown) (unknown) Ur Barbiturates (units (unknown) date) Screen unknown) (Negative) (unknown) (no (unknown) (unknown) Ur Barbiturates (units (unknown) date) Screen Negative unknown) (Negative) (unknown) (no (unknown) (unknown) Ur Culture (units (unk nown) date) Indicated? unknown) (unknown) (no (unknown) (unknown) Ur Culture (units (unk nown) date) Indicated? unknown) (unknown) (no (unknown) (unknown) Ur Culture (units (unk nown) date) Indicated? Cult unknown) not indicated (unknown) (no (unknown) (unknown) Ur Leukocyte (units (u nknown) date) Esterase unknown) (NEGATIVE) (unknown) (no (unknown) (unknown) Ur Leukocyte (units (u nknown) date) Esterase unknown) (NEGATIVE) (unknown) (no (unknown) (unknown) Ur Leukocyte (units (u nknown) date) Esterase unknown) Negative (NEGATIVE) (unknown) (no (unknown) (unknown) Ur MDMA Scrn (units (u nknown) date) (Ecstasy) unknown) (Negative) (unknown) (no (unknown) (unknown) Ur MDMA Scrn (units (u nknown) date) (Ecstasy) Negative unknown) (Negative) (unknown) (no (unknown) (unknown) Ur Oxycodone (units (u nknown) date) Screen unknown) (Negative) (unknown) (no (unknown) (unknown) Ur Oxycodone (units (u nknown) date) Screen Negative unknown) (Negative) (unknown) (no (unknown) (unknown) Ur Phencyclidine (units (unknown) date) Scrn (Negative) unknown) (unknown) (no (unknown) (unknown) Ur Phencyclidine (units (unknown) date) Scrn Negative unknown) (Negative) (unknown) (no (unknown) (unknown) Ur Specific (units (un known) date) [place] unknown) (1.000-1.035) (unknown) (no (unknown) (unknown) Ur Specific (units (un known) date) [place] unknown) (1.000-1.035) (unknown) (no (unknown) (unknown) Ur Specific (units (un known) date) [place] 1.020 unknown) (1.000-1.035) (unknown) (no (unknown) (unknown) Ur Squamous Epith (units (unknown) date) Cells (0-5/HPF) unknown) (unknown) (no (unknown) (unknown) Ur Squamous Epith (units (unknown) date) Cells (0-5/HPF) unknown) (unknown) (no (unknown) (unknown) Ur Squamous Epith (units (unknown) date) Cells 0-1 /hpf unknown) (0-5/HPF) (unknown) (no (unknown) (unknown) Urinalysis and (units (unknown) date) Microscopic Stat unknown) (unknown) (no (unknown) (unknown) Urine Appearance (units (unknown) date) unknown) (unknown) (no (unknown) (unknown) Urine Appearance (units (unknown) date) unknown) (unknown) (no (unknown) (unknown) Urine Appearance (units (unknown) date) Clear unknown) (unknown) (no (unknown) (unknown) Urine Bacteria (units (unknown) date) (None) unknown) (unknown) (no (unknown) (unknown) Urine Bacteria (units (unknown) date) (None) unknown) (unknown) (no (unknown) (unknown) Urine Bacteria (units (unknown) date) None seen (None) unknown) (unknown) (no (unknown) (unknown) Urine Bilirubin (units (unknown) date) (NEGATIVE) unknown) (unknown) (no (unknown) (unknown) Urine Bilirubin (units (unknown) date) (NEGATIVE) unknown) (unknown) (no (unknown) (unknown) Urine Bilirubin (units (unknown) date) Negative unknown) (NEGATIVE) (unknown) (no (unknown) (unknown) Urine Cocaine (units ( unknown) date) Screen unknown) (Negative) (unknown) (no (unknown) (unknown) Urine Cocaine (units ( unknown) date) Screen Negative unknown) (Negative) (unknown) (no (unknown) (unknown) Urine Color (units (un known) date) unknown) (unknown) (no (unknown) (unknown) Urine Color (units (un known) date) unknown) (unknown) (no (unknown) (unknown) Urine Color (units (un known) date) Yellow unknown) (unknown) (no (unknown) (unknown) Urine Drug Screen, (units (unknown) date) Rapid Stat unknown) (unknown) (no (unknown) (unknown) Urine Glucose (UA) (units (unknown) date) (Negative) unknown) g/dL (unknown) (no (unknown) (unknown) Urine Glucose (UA) (units (unknown) date) (Negative) g/dL unknown) (unknown) (no (unknown) (unknown) Urine Glucose (UA) (units (unknown) date) Negative unknown) (Negative) g/dL (unknown) (no (unknown) (unknown) Urine Ketones (units ( unknown) date) (NEGATIVE) unknown) (unknown) (no (unknown) (unknown) Urine Ketones (units ( unknown) date) (NEGATIVE) unknown) (unknown) (no (unknown) (unknown) Urine Ketones (units ( unknown) date) Trace H (NEGATIVE) unknown) (unknown) (no (unknown) (unknown) Urine Methadone (units (unknown) date) Screen unknown) (Negative) (unknown) (no (unknown) (unknown) Urine Methadone (units (unknown) date) Screen Negative unknown) (Negative) (unknown) (no (unknown) (unknown) Urine Nitrate (units ( unknown) date) (Negative) unknown) (unknown) (no (unknown) (unknown) Urine Nitrate (units ( unknown) date) (Negative) unknown) (unknown) (no (unknown) (unknown) Urine Nitrate (units ( unknown) date) Negative unknown) (Negative) (unknown) (no (unknown) (unknown) Urine Occult Blood (units (unknown) date) (Negative) unknown) (unknown) (no (unknown) (unknown) Urine Occult Blood (units (unknown) date) (Negative) unknown) (unknown) (no (unknown) (unknown) Urine Occult Blood (units (unknown) date) Negative unknown) (Negative) (unknown) (no (unknown) (unknown) Urine Protein (units ( unknown) date) (Negative) unknown) (unknown) (no (unknown) (unknown) Urine Protein (units ( unknown) date) (Negative) unknown) (unknown) (no (unknown) (unknown) Urine Protein (units ( unknown) date) Negative unknown) (Negative) (unknown) (no (unknown) (unknown) Urine RBC (units (unkn own) date) (0-5/HPF) unknown) (unknown) (no (unknown) (unknown) Urine RBC (units (unkn own) date) (0-5/HPF) unknown) (unknown) (no (unknown) (unknown) Urine RBC None (units (unknown) date) seen (0-5/HPF) unknown) (unknown) (no (unknown) (unknown) Urine Urobilinogen (units (unknown) date) (0.2) E.U./dL unknown) (unknown) (no (unknown) (unknown) Urine Urobilinogen (units (unknown) date) (0.2) E.U./dL unknown) (unknown) (no (unknown) (unknown) Urine Urobilinogen (units (unknown) date) 0.2 (0.2) unknown) E.U./dL (unknown) (no (unknown) (unknown) Urine WBC (units (unkn own) date) (0-5/HPF) unknown) (unknown) (no (unknown) (unknown) Urine WBC (units (unkn own) date) (0-5/HPF) unknown) (unknown) (no (unknown) (unknown) Urine WBC None (units (unknown) date) seen (0-5/HPF) unknown) (unknown) (no (unknown) (unknown) Urine pH (units (unkno wn) date) (4.5-8.0) unknown) (unknown) (no (unknown) (unknown) Urine pH (units (unkno wn) date) (4.5-8.0) unknown) (unknown) (no (unknown) (unknown) Urine pH 5.0 (units (unknown) date) (4.5-8.0) unknown) (unknown) (no (unknown) (unknown) Vascular (units (unkno wn) date) Ultrasound (Signed) unknown) (unknown) (no (unknown) (unknown) Ventricular (units (un known) date) bigeminy unknown) (unknown) (no (unknown) (unknown) Vital Signs (units (un known) date) unknown) (unknown) (no (unknown) (unknown) Vital signs: (units (u nknown) date) unknown) (unknown) (no (unknown) (unknown) Charles,Lexx (units (u nknown) date) unknown) (unknown) (no (unknown) (unknown) [Embedded Image (units (unknown) date) Not Available] unknown) (unknown) (no (unknown) (unknown) [[id number] (units (unknown) date) REDUCTASE unknown) (unknown) (no (unknown) (unknown) [SULFA (units (unkno wn) date) (SULFONAMIDE unknown) (unknown) (no (unknown) (unknown) acetaminophen 300 (units (unknown) date) mg-codeine 30 mg 1 unknown) tab PO Q6HR PRN 10/08/21 10/08/21 (unknown) (no (unknown) (unknown) acetaminophen 325 (units (unknown) date) mg tablet 650 mg PO unknown) Q6H PRN #60 tab 11/06/20 (unknown) (no (unknown) (unknown) albuterol sulfate (units (unknown) date) 1.25 mg/3 mL 2.5 mg unknown) (6 mL) INHALATION QID #90 ml 11/28/21 (unknown) (no (unknown) (unknown) alcohol intake (units (unknown) date) frequency: unknown) holidays/special occasions only (unknown) (no (unknown) (unknown) alcohol intake: (units (unknown) date) current unknown) (unknown) (no (unknown) (unknown) and coronal (units (un known) date) reformats were then unknown) constructed.? For radiation dose reduction, the (unknown) (no (unknown) (unknown) and shape.? (units (un known) date) unknown) (unknown) (no (unknown) (unknown) appears (units (unkno wn) date) preserved.? There unknown) is intracranial internal carotid artery (unknown) (no (unknown) (unknown) approximately 0.2 (units (unknown) date) cm. unknown) (unknown) (no (unknown) (unknown) approximately 0.4 (units (unknown) date) cm and minimal unknown) anterolisthesis at C3-C4 measuring (unknown) (no (unknown) (unknown) arthropathy (units (un known) date) throughout the unknown) cervical spine.? Visualized superior ribs are (unknown) (no (unknown) (unknown) atherosclerosis.? (units (unknown) date) unknown) (unknown) (no (unknown) (unknown) benzonatate 100 mg (units (unknown) date) capsule 100 mg PO unknown) TID PRN #14 cap 03/05/21 (unknown) (no (unknown) (unknown) buprenorphine (units ( unknown) date) [BUPRENORPHINE] unknown) AdvReac Mild NAUSEA, Verified 11/28/21 15:33 (unknown) (no (unknown) (unknown) buprenorphine, (units (unknown) date) hyoscyamine, unknown) [id number] Reductase Inhibitor, diazepam (unknown) (no (unknown) (unknown) cefdinir 300 mg (units (unknown) date) capsule 300 mg PO unknown) BID #20 cap 10/09/21 (unknown) (no (unknown) (unknown) celecoxib (units (unkn own) date) [CELECOXIB] Allergy unknown) Mild SWELLING Verified 11/28/21 15:33 (unknown) (no (unknown) (unknown) cetirizine 10 mg (units (unknown) date) capsule (Zyrtec) 10 unknown) mg PO DAILY 05/22/19 10/08/21 (unknown) (no (unknown) (unknown) chronic back pain, (units (unknown) date) ataxia, AFib, COPD unknown) presents for evaluation of a witnessed (unknown) (no (unknown) (unknown) chronic sinusitis. (units (unknown) date) unknown) (unknown) (no (unknown) (unknown) constipation, (units ( unknown) date) melena. unknown) (unknown) (no (unknown) (unknown) consumed a large (units (unknown) date) amount of alcohol unknown) tonight in addition to many other medications (unknown) (no (unknown) (unknown) contusion, (units (unk nown) date) laceration, unknown) hematoma or evidence of depressed skull fracture (unknown) (no (unknown) (unknown) degeneration also (units (unknown) date) demonstrated at unknown) C2-C3 and C3-C4.? There is multilevel moderate (unknown) (no (unknown) (unknown) degenerative disc (units (unknown) date) disease within the unknown) visualized upper thoracic spine.? Mild disc (unknown) (no (unknown) (unknown) diazepam [From (units (unknown) date) Valium] AdvReac unknown) Confusion Verified 11/28/21 15:33 (unknown) (no (unknown) (unknown) diclofenac sodium (units (unknown) date) 1 % topical gel 2 g unknown) TOPICAL QID #100 g 11/19/21 (unknown) (no (unknown) (unknown) difficult time (units ( unknown) date) ambulating and is unknown) unsafe to discharge at this time. His has (unknown) (no (unknown) (unknown) ferrous sulfate (units (unknown) date) 325 mg (65 mg 325 unknown) mg PO DAILY 10/19/19 10/08/21 (unknown) (no (unknown) (unknown) fluticasone (units (un known) date) propionate 50 1 unknown) spray INTRANASAL DAILY PRN #0 11/02/17 10/08/21 (unknown) (no (unknown) (unknown) following (units (unkn own) date) unknown) (unknown) (no (unknown) (unknown) furosemide 40 mg (units (unknown) date) tablet (Lasix) 40 unknown) mg PO DAILY 10/08/21 10/08/21 (unknown) (no (unknown) (unknown) glipizide 2.5 mg (units (unknown) date) tablet, extended unknown) 2.5 mg PO DAILY 10/08/21 10/08/21 (unknown) (no (unknown) (unknown) ground level fall. (units (unknown) date) He stumbled and unknown) fell forward, striking his nose. There was (unknown) (no (unknown) (unknown) hand (units (unkno wn) date) unknown) (unknown) (no (unknown) (unknown) hematomas.? No (units (unknown) date) apical unknown) pneumothoraces.? (unknown) (no (unknown) (unknown) household members: (units (unknown) date) spouse unknown) (unknown) (no (unknown) (unknown) hyoscyamine (units (un known) date) [HYOSCYAMINE] unknown) AdvReac Mild LEG Verified 11/28/21 15:33 (unknown) (no (unknown) (unknown) intact.? (units (unkno wn) date) unknown) (unknown) (no (unknown) (unknown) iron) (units (unkno wn) date) tablet,delayed unknown) release (unknown) (no (unknown) (unknown) latex [LATEX] (units ( unknown) date) Allergy Mild RASH unknown) Verified 11/28/21 15:33 (unknown) (no (unknown) (unknown) lesions.? (units (unkn own) date) unknown) (unknown) (no (unknown) (unknown) levalbuterol HCl (units (unknown) date) 1.25 mg/3 mL 3 ml unknown) INHALATION Q6H PRN 10/16/18 10/08/21 (unknown) (no (unknown) (unknown) levalbuterol (units (u nknown) date) tartrate 45 1 puff unknown) INHALATION Q4-6H PRN #15 06/22/18 (unknown) (no (unknown) (unknown) mastoid air cells (units (unknown) date) are clear. unknown) (unknown) (no (unknown) (unknown) mcg/actuation (units ( unknown) date) aerosol inhaler unknown) gram (unknown) (no (unknown) (unknown) mcg/actuation (units ( unknown) date) nasal unknown) (unknown) (no (unknown) (unknown) measuring (units (unkn own) date) unknown) (unknown) (no (unknown) (unknown) meclizine 25 mg (units (unknown) date) tablet 25 mg PO QID unknown) PRN #30 tab 10/09/21 (unknown) (no (unknown) (unknown) methocarbamol 500 (units (unknown) date) mg tablet 500 mg PO unknown) Q8H PRN #14 tab 11/19/21 (unknown) (no (unknown) (unknown) metoprolol (units (unk nown) date) tartrate 100 mg unknown) tablet 100 mg PO BID 10/16/18 10/08/21 (unknown) (no (unknown) (unknown) mg tablet (units (unkn own) date) (Percocet) unknown) (unknown) (no (unknown) (unknown) mild distress. (units (unknown) date) GCS 15, smells of unknown) alcohol and slurring his words (unknown) (no (unknown) (unknown) moderate (units (unkno wn) date) unknown) (unknown) (no (unknown) (unknown) multiple levels as (units (unknown) date) described. unknown) (unknown) (no (unknown) (unknown) multivitamin (units (u nknown) date) (Multiple Vitamins) unknown) 1 tab PO DAILY #0 12/20/16 10/08/21 (unknown) (no (unknown) (unknown) no loss of (units (unk nown) date) consciousness and unknown) he has had no nausea or vomiting. He denies any (unknown) (no (unknown) (unknown) other injuries (units (unknown) date) such as neck, back unknown) or extremities. His states that he (unknown) (no (unknown) (unknown) oxycodone 5 mg (units (unknown) date) tablet 10 mg PO unknown) Q4-5H PRN #60 tab 11/06/20 (unknown) (no (unknown) (unknown) oxycodone-acetamin (units (unknown) date) ophen 5 mg-325 1 unknown) tab PO Q8H PRN #10 tab 11/19/21 (unknown) (no (unknown) (unknown) oxycodone-acetamin (units (unknown) date) ophen 5 mg-325 1 unknown) tab PO TID PRN #10 tab 11/19/21 (unknown) (no (unknown) (unknown) paravertebral (units ( unknown) date) unknown) (unknown) (no (unknown) (unknown) patient (units (unkno wn) date) unknown) (unknown) (no (unknown) (unknown) prednisone 20 mg (units (unknown) date) tablet 20 mg PO unknown) DAILY #32 tab 11/28/21 (unknown) (no (unknown) (unknown) prednisone 50 mg (units (unknown) date) tablet 50 mg PO unknown) DAILY #5 tab 11/19/21 (unknown) (no (unknown) (unknown) prominence.? (units (u nknown) date) unknown) (unknown) (no (unknown) (unknown) release 24 hr (units ( unknown) date) (Glucotrol XL) unknown) (unknown) (no (unknown) (unknown) seizures, (units (unkn own) date) incoordination. unknown) (unknown) (no (unknown) (unknown) sequelae of (units (un known) date) unknown) (unknown) (no (unknown) (unknown) sinusitis.? The (units (unknown) date) unknown) (unknown) (no (unknown) (unknown) size.? (units (unkno wn) date) unknown) (unknown) (no (unknown) (unknown) solution for (units (u nknown) date) nebulization unknown) (unknown) (no (unknown) (unknown) solution for (units (u nknown) date) nebulization unknown) (unknown) (no (unknown) (unknown) spray,suspension (units (unknown) date) unknown) (unknown) (no (unknown) (unknown) study.? There are (units (unknown) date) postsurgical unknown) changes also redemonstrated status post prior (unknown) (no (unknown) (unknown) substance use (units ( unknown) date) type: does not use unknown) (unknown) (no (unknown) (unknown) suspicious (units (unk nown) date) unknown) (unknown) (no (unknown) (unknown) tablet (units (unkno wn) date) unknown) (unknown) (no (unknown) (unknown) that he would (units ( unknown) date) routinely take. He unknown) is activated as a modified trauma. (unknown) (no (unknown) (unknown) the prior (units (unkn own) date) unknown) (unknown) (no (unknown) (unknown) thickening (units (unk nown) date) unknown) (unknown) (no (unknown) (unknown) to the (units (unkno wn) date) unknown) (unknown) (no (unknown) (unknown) trazodone 100 mg (units (unknown) date) tablet 400 tab PO unknown) BEDTIME 12/09/17 10/08/21 (unknown) (no (unknown) (unknown) varenicline (units (un known) date) [VARENICLINE] unknown) AdvReac Severe Paranoia Verified 11/28/21 15:33 (unknown) (no (unknown) (unknown) vertex, with (units (u nknown) date) coronal and unknown) sagittal reformats.? For radiation dose reduction, the (unknown) (no (unknown) (unknown) was used:? (units (unk nown) date) automated exposure unknown) control, adjustment of mA and/or kV according to (unknown) (no (unknown) (unknown) within the (units (unk nown) date) visualized left unknown) maxillary sinus suggesting sequelae of chronic (unknown) (no (unknown) (unknown) without erythema, (units (unknown) date) tonsillar unknown) hypertrophy or exudate. Airway patent. Result panel 38 (unknown) (no (unknown) (unknown) (no value) (units (unk nown) date) unknown) (unknown) (no (unknown) (unknown) Radiologist's (units ( unknown) date) Impression: unknown) (unknown) (no (unknown) (unknown) (no value) (units (unk nown) date) unknown) (unknown) (no (unknown) (unknown) Date of Service: (units (unknown) date) 12/07/21 unknown) (unknown) (no (unknown) (unknown) (no value) (units (unk nown) date) unknown) (unknown) (no (unknown) (unknown) 12/07/21 23:05 (units (unknown) date) unknown) (unknown) (no (unknown) (unknown) 1 puff INHALATION (units (unknown) date) Q4-6H PRN (Reason: unknown) shortness of breath or wheezing) Qty: 15 (unknown) (no (unknown) (unknown) 1 spray Intranasal (units (unknown) date) DAILY PRN (Reason: unknown) Allergy Symptoms) Qty: 0 0RF (unknown) (no (unknown) (unknown) 1 tab PO DAILY (units (unknown) date) Qty: 0 0RF unknown) (unknown) (no (unknown) (unknown) 1 tab PO Q6HR PRN (units (unknown) date) (Reason: Back Pain) unknown) 0RF (unknown) (no (unknown) (unknown) 1 tab PO Q8H PRN (units (unknown) date) (Reason: pain) Qty: unknown) 10 0RF (unknown) (no (unknown) (unknown) 1 tab PO TID PRN (units (unknown) date) (Reason: pain) Qty: unknown) 10 0RF (unknown) (no (unknown) (unknown) 10 mg PO DAILY 0RF (units (unknown) date) unknown) (unknown) (no (unknown) (unknown) 10 mg PO Q4-5H PRN (units (unknown) date) (Reason: Pain, unknown) Severe (7-10)) Qty: 60 0RF (unknown) (no (unknown) (unknown) 100 mg PO BID 0RF (units (unknown) date) unknown) (unknown) (no (unknown) (unknown) 100 mg PO TID PRN (units (unknown) date) (Reason: cough) unknown) Qty: 14 0RF (unknown) (no (unknown) (unknown) [address] (units (unknown) date) unknown) (unknown) (no (unknown) (unknown) 2 g topical QID (units (unknown) date) Qty: 100 0RF unknown) (unknown) (no (unknown) (unknown) 2.5 mg PO DAILY (units (unknown) date) 0RF unknown) (unknown) (no (unknown) (unknown) 2.5 mg inhalation (units (unknown) date) QID Qty: 90 1RF unknown) (unknown) (no (unknown) (unknown) 20 mg PO DAILY (units (unknown) date) Qty: 32 0RF unknown) (unknown) (no (unknown) (unknown) 25 mg PO QID PRN (units (unknown) date) (Reason: vertigo) unknown) Qty: 30 0RF (unknown) (no (unknown) (unknown) 3 ml Inhalation (units (unknown) date) Q6H PRN (Reason: unknown) Shortness Of Breath) 0RF (unknown) (no (unknown) (unknown) 300 mg PO BID Qty: (units (unknown) date) 20 0RF unknown) (unknown) (no (unknown) (unknown) 325 mg PO DAILY (units (unknown) date) 0RF unknown) (unknown) (no (unknown) (unknown) 40 mg PO DAILY 0RF (units (unknown) date) unknown) (unknown) (no (unknown) (unknown) 400 tab PO BEDTIME (units (unknown) date) 0RF unknown) (unknown) (no (unknown) (unknown) 50 mg PO DAILY (units (unknown) date) Qty: 5 0RF unknown) (unknown) (no (unknown) (unknown) 500 mg PO Q8H PRN (units (unknown) date) (Reason: muscle unknown) spasm) Qty: 14 0RF (unknown) (no (unknown) (unknown) 60mg x 5 day, 40mg (units (unknown) date) x 5 day, 20mg x5 unknown) day, 10mg x 4 days (unknown) (no (unknown) (unknown) 650 mg PO Q6H PRN (units (unknown) date) (Reason: pain) Qty: unknown) 60 0RF (unknown) (no (unknown) (unknown) ANXIETY, (units (unkno wn) date) unknown) (unknown) (no (unknown) (unknown) Admin: 12/07/21 (units (unknown) date) 23:25 Dose: 150 unknown) mls/hr (unknown) (no (unknown) (unknown) Allergies (units (unkn own) date) unknown) (unknown) (no (unknown) (unknown) [place] (units ( unknown) date) [id number] unknown) (unknown) (no (unknown) (unknown) CT Scan Report (units (unknown) date) unknown) (unknown) (no (unknown) (unknown) Close (units (unkno wn) date) unknown) (unknown) (no (unknown) (unknown) DIZZINESS (units (unkn own) date) unknown) (unknown) (no (unknown) (unknown) Documented by: (units (unknown) date) unknown) (unknown) (no (unknown) (unknown) Documented by: (units (unknown) date) [email or web address] unknown) (unknown) (no (unknown) (unknown) Documented by: (units (unknown) date) RLAZANI unknown) (unknown) (no (unknown) (unknown) ED Orders (units (unkn own) date) unknown) (unknown) (no (unknown) (unknown) EXPOSURE (units (unkno wn) date) unknown) (unknown) (no (unknown) (unknown) Emergency Report (units (unknown) date) unknown) (unknown) (no (unknown) (unknown) Home Medications (units (unknown) date) unknown) (unknown) (no (unknown) (unknown) INHALE 1 VIAL PER (units (unknown) date) NEBULIZER EVERY 6 unknown) HOURS NEEDED (unknown) (no (unknown) (unknown) [facility] (units (unknown) date) unknown) (unknown) (no (unknown) (unknown) [facility] (units (unknown) date) [address] [place] [address] unknown) [place] [address] (unknown) (no (unknown) (unknown) JERKING, (units (unkno wn) date) unknown) (unknown) (no (unknown) (unknown) Lab Results (units (un known) date) unknown) (unknown) (no (unknown) (unknown) Label Comments: (units (unknown) date) unknown) (unknown) (no (unknown) (unknown) Last Admin: (units (un known) date) 12/08/21 01:35 unknown) Dose: 1 tab (unknown) (no (unknown) (unknown) Last Admin: (units (un known) date) 12/08/21 02:34 unknown) Dose: 4 mg (unknown) (no (unknown) (unknown) Last Admin: (units (un known) date) 12/08/21 04:04 unknown) Dose: 0.5 mg (unknown) (no (unknown) (unknown) Last Admin: (units (un known) date) 12/08/21 05:53 unknown) Dose: 4 mg (unknown) (no (unknown) (unknown) Last Admin: (units (un known) date) 12/08/21 05:53 unknown) Dose: 40 mg (unknown) (no (unknown) (unknown) Last Admin: (units (un known) date) 12/08/21 06:11 unknown) Dose: 260 mg (unknown) (no (unknown) (unknown) Last Infusion: (units (unknown) date) 12/08/21 04:00 unknown) Dose: 0 mls/hr (unknown) (no (unknown) (unknown) Launch?Image (units (u nknown) date) unknown) (unknown) (no (unknown) (unknown) MINUTES (units (unkno wn) date) unknown) (unknown) (no (unknown) (unknown) NAUSEA W/I (units (unk nown) date) unknown) (unknown) (no (unknown) (unknown) Point of Care (units ( unknown) date) Testing unknown) (unknown) (no (unknown) (unknown) Previous Rx's (units ( unknown) date) unknown) (unknown) (no (unknown) (unknown) Rx Instructions: (units (unknown) date) unknown) (unknown) (no (unknown) (unknown) Signed (units (unkno wn) date) unknown) (unknown) (no (unknown) (unknown) Spouse Milana (units (u nknown) date) called + reported unknown) patient not taking it regularly. (unknown) (no (unknown) (unknown) Stop: 12/08/21 (units (unknown) date) 01:26 unknown) (unknown) (no (unknown) (unknown) Stop: 12/08/21 (units (unknown) date) 02:32 unknown) (unknown) (no (unknown) (unknown) Stop: 12/08/21 (units (unknown) date) 04:01 unknown) (unknown) (no (unknown) (unknown) Stop: 12/08/21 (units (unknown) date) 05:47 unknown) (unknown) (no (unknown) (unknown) Stop: 12/08/21 (units (unknown) date) 05:50 unknown) (unknown) (no (unknown) (unknown) Stop: 12/08/21 (units (unknown) date) 06:04 unknown) (unknown) (no (unknown) (unknown) Vital Signs - 8 hr (units (unknown) date) unknown) (unknown) (no (unknown) (unknown) W/EXTENDED (units (unk nown) date) unknown) (unknown) (no (unknown) (unknown) apply to single (units (unknown) date) elbow, wrist or unknown) hand; for hand includes palm/fingers/back of (unknown) (no (unknown) (unknown) patient states (units (unknown) date) weaning off. unknown) (unknown) (no (unknown) (unknown) take 1 tablet by (units (unknown) date) mouth once daily unknown) (unknown) (no (unknown) (unknown) take 1 tablet by (units (unknown) date) mouth twice a day unknown) (unknown) (no (unknown) (unknown) (no value) (units (unk nown) date) unknown) (unknown) (no (unknown) (unknown) 12/07/21 12/07/21 (units (unknown) date) 12/07/21 unknown) Range/Units (unknown) (no (unknown) (unknown) 12/07/21 12/08/21 (units (unknown) date) Range/Units unknown) (unknown) (no (unknown) (unknown) 23:05 23:05 23:05 (units (unknown) date) unknown) (unknown) (no (unknown) (unknown) 23:05 23:44 23:57 (units (unknown) date) unknown) (unknown) (no (unknown) (unknown) 23:57 01:33 (units (un known) date) unknown) (unknown) (no (unknown) (unknown) Zyrtec 10 mg (units (u nknown) date) Capsule unknown) (unknown) (no (unknown) (unknown) acetaminophen (units ( unknown) date) [Athenol] 325 mg unknown) tablet (unknown) (no (unknown) (unknown) acetaminophen-code (units (unknown) date) ine 300-30 mg unknown) tablet (unknown) (no (unknown) (unknown) albuterol sulfate (units (unknown) date) 1.25 mg/3 mL unknown) solution for nebulization (unknown) (no (unknown) (unknown) benzonatate (units (un known) date) [Tessalon Perles] unknown) 100 mg capsule (unknown) (no (unknown) (unknown) cefdinir 300 mg (units (unknown) date) capsule unknown) (unknown) (no (unknown) (unknown) diclofenac sodium (units (unknown) date) 1 % gel unknown) (unknown) (no (unknown) (unknown) ferrous sulfate (units (unknown) date) 325 mg (65 mg iron) unknown) tablet,delayed release (DR/EC) (unknown) (no (unknown) (unknown) fluticasone (units (un known) date) propionate 16 GM unknown) spray,suspension (unknown) (no (unknown) (unknown) furosemide [Lasix] (units (unknown) date) 40 mg tablet unknown) (unknown) (no (unknown) (unknown) glipizide (units (unkn own) date) [Glucotrol XL] 2.5 unknown) mg tablet extended release 24 hr (unknown) (no (unknown) (unknown) levalbuterol HCl (units (unknown) date) 1.25 mg/3 mL unknown) solution for nebulization (unknown) (no (unknown) (unknown) levalbuterol (units (u nknown) date) tartrate [Xopenex unknown) HFA] 45 mcg/actuation HFA aerosol inhaler (unknown) (no (unknown) (unknown) meclizine 25 mg (units (unknown) date) tablet unknown) (unknown) (no (unknown) (unknown) methocarbamol 500 (units (unknown) date) mg tablet unknown) (unknown) (no (unknown) (unknown) metoprolol (units (unk nown) date) tartrate 100 mg unknown) tablet (unknown) (no (unknown) (unknown) multivitamin (units (u nknown) date) [Multiple Vitamins] unknown) 1 EACH tablet (unknown) (no (unknown) (unknown) oxycodone 5 mg (units (unknown) date) Tablet unknown) (unknown) (no (unknown) (unknown) oxycodone-acetamin (units (unknown) date) ophen [Percocet] unknown) 5-325 mg tablet (unknown) (no (unknown) (unknown) prednisone 20 mg (units (unknown) date) tablet unknown) (unknown) (no (unknown) (unknown) prednisone 50 mg (units (unknown) date) tablet unknown) (unknown) (no (unknown) (unknown) trazodone 100 mg (units (unknown) date) tablet unknown) (unknown) (no (unknown) (unknown) 12/07/21 (units (unkno wn) date) unknown) (unknown) (no (unknown) (unknown) Medication (units (unk nown) date) Instructions unknown) Recorded (unknown) (no (unknown) (unknown) Medication (units (unk nown) date) Instructions unknown) Recorded Confirmed (unknown) (no (unknown) (unknown) been contacted and (units (unknown) date) she will be able to unknown) come pick him up in the morning. (unknown) (no (unknown) (unknown) facet (units (unkno wn) date) unknown) (unknown) (no (unknown) (unknown) junction (units (unkno wn) date) unknown) (unknown) (no (unknown) (unknown) of (units (unkno wn) date) unknown) (unknown) (no (unknown) (unknown) rales, or rhonchi. (units (unknown) date) unknown) (unknown) (no (unknown) (unknown) (Athenol) (units (unkn own) date) unknown) (unknown) (no (unknown) (unknown) (More??) (units (unkno wn) date) unknown) (unknown) (no (unknown) (unknown) (Tessalon Perles) (units (unknown) date) unknown) (unknown) (no (unknown) (unknown) (Xopenex HFA) (units ( unknown) date) unknown) (unknown) (no (unknown) (unknown) - (units (unkno wn) date) unknown) (unknown) (no (unknown) (unknown) [phone] (units (unkn own) date) unknown) (unknown) (no (unknown) (unknown) 08/11/20 (units (unkno wn) date) unknown) (unknown) (no (unknown) (unknown) 08/16/20 (units (unkno wn) date) unknown) (unknown) (no (unknown) (unknown) 08/28/20 (units (unkno wn) date) unknown) (unknown) (no (unknown) (unknown) 09/15/21 (units (unkno wn) date) unknown) (unknown) (no (unknown) (unknown) 10/07/21 (units (unkno wn) date) unknown) (unknown) (no (unknown) (unknown) 10/08/21 (units (unkno wn) date) unknown) (unknown) (no (unknown) (unknown) 10/31/20 (units (unkno wn) date) unknown) (unknown) (no (unknown) (unknown) 11/04/20 (units (unkno wn) date) unknown) (unknown) (no (unknown) (unknown) 11/07/20 (units (unkno wn) date) unknown) (unknown) (no (unknown) (unknown) 11/19/21 (units (unkno wn) date) unknown) (unknown) (no (unknown) (unknown) 11/22/20 (units (unkno wn) date) unknown) (unknown) (no (unknown) (unknown) 11/28/21 (units (unkno wn) date) unknown) (unknown) (no (unknown) (unknown) 12/07/21 (units (unkno wn) date) unknown) (unknown) (no (unknown) (unknown) 12/07/21 23:05 (units (unknown) date) unknown) (unknown) (no (unknown) (unknown) 12/07/21 23:21 (units (unknown) date) unknown) (unknown) (no (unknown) (unknown) 12/07/21 23:44 (units (unknown) date) unknown) (unknown) (no (unknown) (unknown) 12/07/21 23:57 (units (unknown) date) unknown) (unknown) (no (unknown) (unknown) 12/08/21 03:22 (units (unknown) date) unknown) (unknown) (no (unknown) (unknown) 12/28/20 (units (unkno wn) date) unknown) (unknown) (no (unknown) (unknown) 05:35 12/08/21 (units (unknown) date) unknown) (unknown) (no (unknown) (unknown) 05:37 (units (unkno wn) date) unknown) (unknown) (no (unknown) (unknown) 03/05/21 (units (unkno wn) date) unknown) (unknown) (no (unknown) (unknown) 04/16/21 (units (unkno wn) date) unknown) (unknown) (no (unknown) (unknown) 0RF (units (unkno wn) date) unknown) (unknown) (no (unknown) (unknown) 1. No acute (units (un known) date) intracranial unknown) abnormality. (unknown) (no (unknown) (unknown) 1.? No acute (units (u nknown) date) fracture or unknown) subluxation. (unknown) (no (unknown) (unknown) 12 point review of (units (unknown) date) systems is negative unknown) except for those stated above (unknown) (no (unknown) (unknown) 07/18/20 (units (unkno wn) date) unknown) (unknown) (no (unknown) (unknown) 2. Bony remodeling (units (unknown) date) in the left unknown) maxillary sinus redemonstrated consistent with (unknown) (no (unknown) (unknown) 2. Postsurgical (units (unknown) date) changes unknown) redemonstrated throughout the cervical spine with fusion (unknown) (no (unknown) (unknown) 23:17 12/08/21 (units (unknown) date) unknown) (unknown) (no (unknown) (unknown) 3. Mild cerebral (units (unknown) date) volume loss.? 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 (units (unkno wn) date) unknown) (unknown) (no (unknown) (unknown) ? (units (unkno wn) date) unknown) (unknown) (no (unknown) (unknown) ?Minimal (units (unkno wn) date) anterolisthesis unknown) also demonstrated at T1-T2.? Findings are similar to (unknown) (no (unknown) (unknown) ACDF at (units (unkno wn) date) unknown) (unknown) (no (unknown) (unknown) ALT (<50) (units ( unknown) date) IU/L unknown) (unknown) (no (unknown) (unknown) ALT (<50) IU/L (units (unknown) date) unknown) (unknown) (no (unknown) (unknown) ALT 31 (<50) (units (unknown) date) IU/L unknown) (unknown) (no (unknown) (unknown) ANTIBIOTICS)] (units ( unknown) date) unknown) (unknown) (no (unknown) (unknown) AST (17-59) (units (unknown) date) IU/L unknown) (unknown) (no (unknown) (unknown) AST (17-59) (units (unknown) date) IU/L unknown) (unknown) (no (unknown) (unknown) AST 32 (17-59) (units (unknown) date) IU/L unknown) (unknown) (no (unknown) (unknown) Accession Number: (units (unknown) date) [id number] ?? unknown) (unknown) (no (unknown) (unknown) Accession Number: (units (unknown) date) [id number] ?? unknown) (unknown) (no (unknown) (unknown) Acct:[id number] (units (unknown) date) unknown) (unknown) (no (unknown) (unknown) Acetaminophen (units ( unknown) date) (10-30) ug/mL unknown) (unknown) (no (unknown) (unknown) Acetaminophen (units ( unknown) date) (10-30) ug/mL unknown) (unknown) (no (unknown) (unknown) Acetaminophen < (units (unknown) date) 10 (10-30) ug/mL unknown) (unknown) (no (unknown) (unknown) Acetaminophen Stat (units (unknown) date) unknown) (unknown) (no (unknown) (unknown) Acetaminophen/Code (units (unknown) date) ine Phosphate unknown) (Codeine/Acetaminop hen 30/300 Tablet) 1 tab PO (unknown) (no (unknown) (unknown) Achalasia (units (unkn own) date) unknown) (unknown) (no (unknown) (unknown) Age/Sex: 76 / M (units (unknown) date) unknown) (unknown) (no (unknown) (unknown) Age/Sex: 76 / M (units (unknown) date) unknown) (unknown) (no (unknown) (unknown) Albumin (units (unkno wn) date) (3.5-5.0) g/dL unknown) (unknown) (no (unknown) (unknown) Albumin (units (unkno wn) date) (3.5-5.0) g/dL unknown) (unknown) (no (unknown) (unknown) Albumin 4.1 (units ( unknown) date) (3.5-5.0) g/dL unknown) (unknown) (no (unknown) (unknown) Albumin/Globulin (units (unknown) date) Ratio (1.0-2.8) unknown) (unknown) (no (unknown) (unknown) Albumin/Globulin (units (unknown) date) Ratio (1.0-2.8) unknown) (unknown) (no (unknown) (unknown) Albumin/Globulin (units (unknown) date) Ratio 1.4 unknown) (1.0-2.8) (unknown) (no (unknown) (unknown) Alkaline (units (unkno wn) date) Phosphatase unknown) (38-126) U/L (unknown) (no (unknown) (unknown) Alkaline (units (unkno wn) date) Phosphatase unknown) (38-126) U/L (unknown) (no (unknown) (unknown) Alkaline (units (unkno wn) date) Phosphatase 64 unknown) (38-126) U/L (unknown) (no (unknown) (unknown) Allergy/Adv: (units (u nknown) date) celecoxib, latex, unknown) Sulfa (Sulfonamide Antibiotics), varenicline, (unknown) (no (unknown) (unknown) Allergy/AdvReac (units (unknown) date) Type Severity unknown) Reaction Status Date / Time (unknown) (no (unknown) (unknown) Anginal pain (units (u nknown) date) unknown) (unknown) (no (unknown) (unknown) Ankle X-Ray (units (un known) date) (Signed) unknown) (unknown) (no (unknown) (unknown) Antibiotics) (units (u nknown) date) unknown) (unknown) (no (unknown) (unknown) Approved by: (units (u nknown) date) Maxim Valadez, unknown) Clifford on 12/07/2021 at 21:44 ? (unknown) (no (unknown) (unknown) Approved by: (units (u nknown) date) Maxim Valadez, unknown) Clifford on 12/07/2021 at 21:48 ? (unknown) (no (unknown) (unknown) Asthma (units (unkno wn) date) unknown) (unknown) (no (unknown) (unknown) Atrial (units (unkno wn) date) fibrillation unknown) (unknown) (no (unknown) (unknown) BACK: Nontender (units (unknown) date) without deformity unknown) or crepitance. No flank tenderness. (unknown) (no (unknown) (unknown) BUN (9-20) (units (unknown) date) mg/dL unknown) (unknown) (no (unknown) (unknown) BUN (9-20) (units ( unknown) date) mg/dL unknown) (unknown) (no (unknown) (unknown) BUN 21 H (units (unk nown) date) (9-20) mg/dL unknown) (unknown) (no (unknown) (unknown) BUN/Creatinine (units (unknown) date) Ratio (6-22) unknown) (unknown) (no (unknown) (unknown) BUN/Creatinine (units (unknown) date) Ratio (6-22) unknown) (unknown) (no (unknown) (unknown) BUN/Creatinine (units (unknown) date) Ratio 23.9 H unknown) (6-22) (unknown) (no (unknown) (unknown) Baso # (Auto) (units ( unknown) date) (0-100) /uL unknown) (unknown) (no (unknown) (unknown) Baso # (Auto) (units ( unknown) date) (0-100) /uL unknown) (unknown) (no (unknown) (unknown) Baso # (Auto) 100 (units (unknown) date) (0-100) /uL unknown) (unknown) (no (unknown) (unknown) Baso % (Auto) (units ( unknown) date) (0-2) % unknown) (unknown) (no (unknown) (unknown) Baso % (Auto) (units ( unknown) date) (0-2) % unknown) (unknown) (no (unknown) (unknown) Baso % (Auto) 0.8 (units (unknown) date) (0-2) % unknown) (unknown) (no (unknown) (unknown) Blood Culture Stat (units (unknown) date) unknown) (unknown) (no (unknown) (unknown) Blood Pressure (units (unknown) date) 159/98 H 12/07/21 unknown) 20:23 (unknown) (no (unknown) (unknown) Blood Pressure (units (unknown) date) 207/103 H 207/103 H unknown) (unknown) (no (unknown) (unknown) Bones:? No (units (unk nown) date) fractures or unknown) subluxation.? There is anterolisthesis at C2-C3 (unknown) (no (unknown) (unknown) Brain MRI (Signed) (units (unknown) date) unknown) (unknown) (no (unknown) (unknown) Brain:? No (units (unkn own) date) intracranial unknown) hemorrhage, mass, or mass effect.? The adams-white matter (unknown) (no (unknown) (unknown) C4-C5 and C7-T1.? (units (unknown) date) There is also unknown) fusion at C5-C6 and C6-C7.? There is mild to (unknown) (no (unknown) (unknown) CARDIOVASCULAR: (units (unknown) date) Denies chest pain, unknown) palpitations, orthopnea, edema, (unknown) (no (unknown) (unknown) CARDIOVASCULAR: (units (unknown) date) Regular rate and unknown) rhythm without murmurs, gallops, or rubs. (unknown) (no (unknown) (unknown) COMPARISON:? (units (u nknown) date) [facility], unknown) CT, CT CERVICAL SPINE WO CON, 04/16/2021, 12:21. (unknown) (no (unknown) (unknown) COMPARISON:? (units (u nknown) date) [facility], unknown) CT, CT HEAD/BRAIN WO CON, 04/16/2021, 12:21. (unknown) (no (unknown) (unknown) COPD (chronic (units ( unknown) date) obstructive unknown) pulmonary disease) (unknown) (no (unknown) (unknown) COVID19 -Nasal (units (unknown) date) RAPID/Pre-Proc Stat unknown) (unknown) (no (unknown) (unknown) CSF spaces:? Basal (units (unknown) date) cisterns are unknown) patent.? The ventricles are symmetric in size (unknown) (no (unknown) (unknown) CT - cervical (units ( unknown) date) spine: unknown) (unknown) (no (unknown) (unknown) CT lumbar spine wo (units (unknown) date) con Stat unknown) (unknown) (no (unknown) (unknown) CT scan - head: (units (unknown) date) unknown) (unknown) (no (unknown) (unknown) Calcium (units (unkno wn) date) (8.4-10.2) mg/dL unknown) (unknown) (no (unknown) (unknown) Calcium (units (unkno wn) date) (8.4-10.2) mg/dL unknown) (unknown) (no (unknown) (unknown) Calcium 8.4 (units ( unknown) date) (8.4-10.2) mg/dL unknown) (unknown) (no (unknown) (unknown) Call,Francisco J (units (unk nown) date) unknown) (unknown) (no (unknown) (unknown) Carbon Dioxide (units (unknown) date) (22-32) mmol/L unknown) (unknown) (no (unknown) (unknown) Carbon Dioxide (units (unknown) date) (22-32) mmol/L unknown) (unknown) (no (unknown) (unknown) Carbon Dioxide (units (unknown) date) 27 (22-32) unknown) mmol/L (unknown) (no (unknown) (unknown) Cervical Spine CT (units (unknown) date) (Signed) unknown) (unknown) (no (unknown) (unknown) Cervical spinal (units (unknown) date) stenosis unknown) (unknown) (no (unknown) (unknown) Chest CTA (Signed) (units (unknown) date) unknown) (unknown) (no (unknown) (unknown) Chest X-Ray (units (un known) date) (Signed) unknown) (unknown) (no (unknown) (unknown) Chest/Abdomen/Pelv (units (unknown) date) is CTA (Signed) unknown) (unknown) (no (unknown) (unknown) Chief Complaint: (units (unknown) date) Trauma unknown) (unknown) (no (unknown) (unknown) Chloride (units (unkno wn) date) (98-107) mmol/L unknown) (unknown) (no (unknown) (unknown) Chloride (units (unkno wn) date) (98-107) mmol/L unknown) (unknown) (no (unknown) (unknown) Chloride 104 (units (unknown) date) (98-107) mmol/L unknown) (unknown) (no (unknown) (unknown) 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 (10/22/16) (unknown) (no (unknown) (unknown) Zeina Saavedra (units (u nknown) date) unknown) (unknown) (no (unknown) (unknown) Complete Blood (units (unknown) date) Count AUTO DIFF unknown) Stat (unknown) (no (unknown) (unknown) Comprehensive (units ( unknown) date) Metabolic Panel unknown) Stat (unknown) (no (unknown) (unknown) Coronary artery (units (unknown) date) disease unknown) (unknown) (no (unknown) (unknown) Course (units (unkno wn) date) unknown) (unknown) (no (unknown) (unknown) Creatinine (units (unk nown) date) (0.66-1.25) mg/dL unknown) (unknown) (no (unknown) (unknown) Creatinine (units (unk nown) date) (0.66-1.25) mg/dL unknown) (unknown) (no (unknown) (unknown) Creatinine 0.88 (units (unknown) date) (0.66-1.25) mg/dL unknown) (unknown) (no (unknown) (unknown) : 1945 (units (unknown) date) Acct:[id number] unknown) (unknown) (no (unknown) (unknown) : 1945 (units (unknown) date) unknown) (unknown) (no (unknown) (unknown) Kimmy Gomez MD (units (unknown) date) [Primary Care unknown) Provider] - (unknown) (no (unknown) (unknown) Date of Service: (units (unknown) date) 12/07/21 unknown) (unknown) (no (unknown) (unknown) Departure (units (unkn own) date) unknown) (unknown) (no (unknown) (unknown) Inder Farley (units (u nknown) date) unknown) (unknown) (no (unknown) (unknown) Dictated by: (units (u nknown) date) Maxim Valadez, mohamud Horton on 12/07/2021 at 21:42 ? ? (unknown) (no (unknown) (unknown) Dictated by: (units (u nknown) date) Maxim Valadez, unknownRui Horton on 12/07/2021 at 21:44 ? ? (unknown) (no (unknown) (unknown) Discharge Plan (units (unknown) date) unknown) (unknown) (no (unknown) (unknown) Discontinued (units (u nknown) date) Medications unknown) (unknown) (no (unknown) (unknown) ENT: Nose without (units (unknown) date) bleeding, purulent unknown) drainage. No nasal septal hematoma Throat (unknown) (no (unknown) (unknown) ER Physician: (units ( unknown) date) Jung Dejesus D.O. unknown) (unknown) (no (unknown) (unknown) EXTREMITIES: No (units (unknown) date) edema or joint unknown) tenderness. (unknown) (no (unknown) (unknown) EYES: Pupils equal (units (unknown) date) round and reactive. unknown) No hyphema Extraocular motions intact. (unknown) (no (unknown) (unknown) Echocardiogram (units (unknown) date) Ultrasound (Signed) unknown) (unknown) (no (unknown) (unknown) Eos # (Auto) (units (u nknown) date) (0-450) /uL unknown) (unknown) (no (unknown) (unknown) Eos # (Auto) (units (u nknown) date) (0-450) /uL unknown) (unknown) (no (unknown) (unknown) Eos # (Auto) 100 (units (unknown) date) (0-450) /uL unknown) (unknown) (no (unknown) (unknown) Eos % (Auto) (units (u nknown) date) (2-4) % unknown) (unknown) (no (unknown) (unknown) Eos % (Auto) (units (u nknown) date) (2-4) % unknown) (unknown) (no (unknown) (unknown) Eos % (Auto) 2.0 (units (unknown) date) (2-4) % unknown) (unknown) (no (unknown) (unknown) Estimated GFR (units ( unknown) date) (>60) mL/min unknown) (unknown) (no (unknown) (unknown) Estimated GFR (units ( unknown) date) (>60) mL/min unknown) (unknown) (no (unknown) (unknown) Estimated GFR > (units (unknown) date) 60 (>60) mL/min unknown) (unknown) (no (unknown) (unknown) Ethanol (ETOH) (units (unknown) date) Stat unknown) (unknown) (no (unknown) (unknown) Ethyl Alcohol ( (units (unknown) date) - 10) mg/dL unknown) (unknown) (no (unknown) (unknown) Ethyl Alcohol ( (units (unknown) date) - 10) mg/dL unknown) (unknown) (no (unknown) (unknown) Ethyl Alcohol (units ( unknown) date) 111 H ( - 10) unknown) mg/dL (unknown) (no (unknown) (unknown) Exam (units (unkno wn) date) unknown) (unknown) (no (unknown) (unknown) Exam Narrative: (units (unknown) date) unknown) (unknown) (no (unknown) (unknown) FINDINGS:? (units (unk nown) date) unknown) (unknown) (no (unknown) (unknown) Family History (units (unknown) date) (Reviewed 12/08/21 unknown) @ 01:57 by Jung Dejesus DO) (unknown) (no (unknown) (unknown) Foot X-Ray (units (unk nown) date) (Signed) unknown) (unknown) (no (unknown) (unknown) GASTROINTESTINAL: (units (unknown) date) Abdomen soft, unknown) non-tender, nondistended. (unknown) (no (unknown) (unknown) GASTROINTESTINAL: (units (unknown) date) Denies nausea, unknown) vomiting, abdominal pain, diarrhea, (unknown) (no (unknown) (unknown) GENERAL: Denies (units (unknown) date) chills, fatigue, unknown) malaise, fever, sweats. (unknown) (no (unknown) (unknown) GENERAL: [76 year (units (unknown) date) old patient appears unknown) stated age. Well-developed patient, in (unknown) (no (unknown) (unknown) : Denies (units (unk nown) date) dysuria, frequency, unknown) incontinence, hematuria, urinary retention. (unknown) (no (unknown) (unknown) General (units (unkno wn) date) unknown) (unknown) (no (unknown) (unknown) GenericComposite[P (units (unknown) date) lt Count unknown) (150-400) X10^3/uL ] (unknown) (no (unknown) (unknown) GenericComposite[P (units (unknown) date) lt Count unknown) (150-400) X10^3/uL ] (unknown) (no (unknown) (unknown) GenericComposite[P (units (unknown) date) lt Count 241 unknown) (150-400) X10^3/uL ] (unknown) (no (unknown) (unknown) GenericComposite[R (units (unknown) date) BC (4.5-5.9) unknown) X10^6/uL ] (unknown) (no (unknown) (unknown) GenericComposite[R (units (unknown) date) BC (4.5-5.9) unknown) X10^6/uL ] (unknown) (no (unknown) (unknown) GenericComposite[R (units (unknown) date) BC 4.93 unknown) (4.5-5.9) X10^6/uL ] (unknown) (no (unknown) (unknown) GenericComposite[W (units (unknown) date) BC (4.5-11.0) unknown) X10^3/uL ] (unknown) (no (unknown) (unknown) GenericComposite[W (units (unknown) date) BC (4.5-11.0) unknown) X10^3/uL ] (unknown) (no (unknown) (unknown) GenericComposite[W (units (unknown) date) BC 7.4 unknown) (4.5-11.0) X10^3/uL ] (unknown) (no (unknown) (unknown) Globulin (units (unkno wn) date) (1.7-4.1) g/dL unknown) (unknown) (no (unknown) (unknown) Globulin (units (unkno wn) date) (1.7-4.1) g/dL unknown) (unknown) (no (unknown) (unknown) Globulin 2.9 (units (unknown) date) (1.7-4.1) g/dL unknown) (unknown) (no (unknown) (unknown) Glucose (units (unkno wn) date) (80-110) mg/dL unknown) (unknown) (no (unknown) (unknown) Glucose (units (unkno wn) date) (80-110) mg/dL unknown) (unknown) (no (unknown) (unknown) Glucose 124 H (units (unknown) date) (80-110) mg/dL unknown) (unknown) (no (unknown) (unknown) Glucose POC 118 (units (unknown) date) unknown) (unknown) (no (unknown) (unknown) H/O arthroscopic (units (unknown) date) knee surgery unknown) (11/14/17) (unknown) (no (unknown) (unknown) HEAD: Superficial (units (unknown) date) abrasion on the unknown) bridge of his nose, no other obvious (unknown) (no (unknown) (unknown) HEENT: See HPI (units (unknown) date) unknown) (unknown) (no (unknown) (unknown) HPI - Fall (units (unk nown) date) unknown) (unknown) (no (unknown) (unknown) HPI Narrative: (units (unknown) date) unknown) (unknown) (no (unknown) (unknown) Hand X-Ray (units (unk nown) date) (Signed) unknown) (unknown) (no (unknown) (unknown) Jean Oneill (units (unknown) date) unknown) (unknown) (no (unknown) (unknown) Hct (41-53) % (units (unknown) date) unknown) (unknown) (no (unknown) (unknown) Hct (41-53) % (units (unknown) date) unknown) (unknown) (no (unknown) (unknown) Hct 46.0 (units (unkn own) date) (41-53) % unknown) (unknown) (no (unknown) (unknown) Head CT (Signed) (units (unknown) date) unknown) (unknown) (no (unknown) (unknown) Head/Neck CTA (units ( unknown) date) (Signed) unknown) (unknown) (no (unknown) (unknown) Hgb (units (unkno wn) date) (13.5-17.5) g/dL unknown) (unknown) (no (unknown) (unknown) Hgb (13.5-17.5) (units (unknown) date) g/dL unknown) (unknown) (no (unknown) (unknown) Hgb 15.6 (units (unkn own) date) (13.5-17.5) g/dL unknown) (unknown) (no (unknown) (unknown) History of Present (units (unknown) date) Illness unknown) (unknown) (no (unknown) (unknown) History of aortic (units (unknown) date) dissection unknown) () (unknown) (no (unknown) (unknown) History of (units (unk nown) date) arthroplasty of unknown) right knee (unknown) (no (unknown) (unknown) 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 (unknown) (no (unknown) (unknown) History of cardiac (units (unknown) date) cath () unknown) (unknown) (no (unknown) (unknown) History of (units (unk nown) date) esophageal surgery unknown) (unknown) (no (unknown) (unknown) History of (units (unk nown) date) incision and unknown) drainage () (unknown) (no (unknown) (unknown) History of prior (units (unknown) date) ablation treatment unknown) () (unknown) (no (unknown) (unknown) History of surgery (units (unknown) date) unknown) (unknown) (no (unknown) (unknown) Vidal,Ronni (units (unk nown) date) unknown) (unknown) (no (unknown) (unknown) Hx of (units (unkno wn) date) cholecystectomy unknown) (unknown) (no (unknown) (unknown) Hx of hernia (units (u nknown) date) repair unknown) (unknown) (no (unknown) (unknown) Hx of sinus (units (un known) date) surgery unknown) (unknown) (no (unknown) (unknown) Hydromorphone HCl (units (unknown) date) (Hydromorphone 0.5 unknown) Mg Inj) 0.5 mg IV NOW ONE (unknown) (no (unknown) (unknown) Hypertension (units (u nknown) date) unknown) (unknown) (no (unknown) (unknown) IMPRESSION:? (units (u nknown) date) unknown) (unknown) (no (unknown) (unknown) INDICATIONS:? (units ( unknown) date) trauma unknown) (unknown) (no (unknown) (unknown) INHIBITOR] (units (unk nown) date) unknown) (unknown) (no (unknown) (unknown) Image quality:? (units (unknown) date) Excellent.? unknown) (unknown) (no (unknown) (unknown) Image quality:? (units (unknown) date) There is motion unknown) artifact limiting evaluation.? (unknown) (no (unknown) (unknown) Imaging Data (units (u nknown) date) unknown) (unknown) (no (unknown) (unknown) Inhibitor (units (unkn own) date) MUSCLES unknown) (unknown) (no (unknown) (unknown) Initial Vital (units ( unknown) date) Signs unknown) (unknown) (no (unknown) (unknown) Initial Vital (units ( unknown) date) Signs: unknown) (unknown) (no (unknown) (unknown) Ischemic (units (unkno wn) date) cardiomyopathy unknown) (unknown) (no (unknown) (unknown) Theodore,Tl (units (unknown) date) unknown) (unknown) (no (unknown) (unknown) Ashley,Bharath (units ( unknown) date) unknown) (unknown) (no (unknown) (unknown) Knee X-Ray (units (unk nown) date) (Signed) unknown) (unknown) (no (unknown) (unknown) Lab Data (units (unkno wn) date) unknown) (unknown) (no (unknown) (unknown) Labs: (units (unkno wn) date) unknown) (unknown) (no (unknown) (unknown) Lactate (units (unkno wn) date) (0.7-2.1) mmol/L unknown) (unknown) (no (unknown) (unknown) Lactate 2.3 H (units (unknown) date) (0.7-2.1) mmol/L unknown) (unknown) (no (unknown) (unknown) Lactate 1.5 (units ( unknown) date) (0.7-2.1) mmol/L unknown) (unknown) (no (unknown) (unknown) Lactate (Lactic (units (unknown) date) Acid) Stat unknown) (unknown) (no (unknown) (unknown) Satish Jarrett (units (unkno wn) date) unknown) (unknown) (no (unknown) (unknown) Loc: ED (units (unkno wn) date) unknown) (unknown) (no (unknown) (unknown) Lumbar Spine MRI (units (unknown) date) (Signed) unknown) (unknown) (no (unknown) (unknown) Lymph # (Auto) (units (unknown) date) (0666-0598) /uL unknown) (unknown) (no (unknown) (unknown) Lymph # (Auto) (units (unknown) date) (9796-7690) /uL unknown) (unknown) (no (unknown) (unknown) Lymph # (Auto) (units (unknown) date) 1700 (5383-7564) unknown) /uL (unknown) (no (unknown) (unknown) Lymph % (Auto) (units (unknown) date) (25-40) % unknown) (unknown) (no (unknown) (unknown) Lymph % (Auto) (units (unknown) date) (25-40) % unknown) (unknown) (no (unknown) (unknown) Lymph % (Auto) (units (unknown) date) 23.0 L (25-40) unknown) % (unknown) (no (unknown) (unknown) MCH (26-34) (units (unknown) date) PG unknown) (unknown) (no (unknown) (unknown) MCH (26-34) PG (units (unknown) date) unknown) (unknown) (no (unknown) (unknown) MCH 31.7 (units (unkn own) date) (26-34) PG unknown) (unknown) (no (unknown) (unknown) MCHC (30-36) (units (unknown) date) % unknown) (unknown) (no (unknown) (unknown) MCHC (30-36) % (units (unknown) date) unknown) (unknown) (no (unknown) (unknown) MCHC 34.0 (units (unk nown) date) (30-36) % unknown) (unknown) (no (unknown) (unknown) MCV (80-100) (units (unknown) date) fL unknown) (unknown) (no (unknown) (unknown) MCV (80-100) (units (unknown) date) fL unknown) (unknown) (no (unknown) (unknown) MCV 93.3 (units (unkn own) date) (80-100) fL unknown) (unknown) (no (unknown) (unknown) MDM - Fall (units (unk nown) date) unknown) (unknown) (no (unknown) (unknown) MR#: [id number] (units (unknown) date) unknown) (unknown) (no (unknown) (unknown) MUSCULOSKELETAL: (units (unknown) date) See HPI unknown) (unknown) (no (unknown) (unknown) Medical History (units (unknown) date) (Reviewed 12/08/21 unknown) @ 01:57 by Jung Dejesus DO) (unknown) (no (unknown) (unknown) Cheryl Husain (units (unknown) date) unknown) (unknown) (no (unknown) (unknown) Mode of arrival: (units (unknown) date) EMS unknown) (unknown) (no (unknown) (unknown) [place] # (Auto) (units ( unknown) date) (0-900) /uL unknown) (unknown) (no (unknown) (unknown) [place] # (Auto) (units ( unknown) date) (0-900) /uL unknown) (unknown) (no (unknown) (unknown) [place] # (Auto) 700 (units (unknown) date) (0-900) /uL unknown) (unknown) (no (unknown) (unknown) [place] % (Auto) (units ( unknown) date) (3-14) % unknown) (unknown) (no (unknown) (unknown) [place] % (Auto) (units ( unknown) date) (3-14) % unknown) (unknown) (no (unknown) (unknown) [place] % (Auto) 9.5 (units (unknown) date) (3-14) % unknown) (unknown) (no (unknown) (unknown) Mother (units (unknown) date) Stroke unknown) (unknown) (no (unknown) (unknown) NECK: Trachea (units ( unknown) date) midline. Non tender unknown) (unknown) (no (unknown) (unknown) NEURO: Cranial (units (unknown) date) nerves 2-12 grossly unknown) intact (unknown) (no (unknown) (unknown) NEUROLOGIC: Denies (units (unknown) date) weakness, headache, unknown) numbness, change in speech, confusion, (unknown) (no (unknown) (unknown) NOW ONE (units (unkno wn) date) unknown) (unknown) (no (unknown) (unknown) Narcotic (units (unkno wn) date) dependence unknown) (unknown) (no (unknown) (unknown) Narrative (units (unkn own) date) unknown) (unknown) (no (unknown) (unknown) Narrative: (units (unk nown) date) unknown) (unknown) (no (unknown) (unknown) Neck pain, chronic (units (unknown) date) unknown) (unknown) (no (unknown) (unknown) Neut # (Auto) (units ( unknown) date) (5130-2693) /uL unknown) (unknown) (no (unknown) (unknown) Neut # (Auto) (units ( unknown) date) (4636-1818) /uL unknown) (unknown) (no (unknown) (unknown) Neut # (Auto) (units ( unknown) date) 4800 (3357-3367) unknown) /uL (unknown) (no (unknown) (unknown) Neut % (Auto) (units ( unknown) date) (50-75) % unknown) (unknown) (no (unknown) (unknown) Neut % (Auto) (units ( unknown) date) (50-75) % unknown) (unknown) (no (unknown) (unknown) Neut % (Auto) (units ( unknown) date) 64.7 (50-75) % unknown) (unknown) (no (unknown) (unknown) No Action (units (unkn own) date) unknown) (unknown) (no (unknown) (unknown) No scleral (units (unk nown) date) icterus. No unknown) injection or drainage. (unknown) (no (unknown) (unknown) Noncontrast 3 mm (units (unknown) date) thick sections unknown) acquired from the skull base to the T4 level.? (unknown) (no (unknown) (unknown) Noncontrast 4.5 mm (units (unknown) date) thick angled axial unknown) sections acquired from the foramen magnum (unknown) (no (unknown) (unknown) Ondansetron HCl (units (unknown) date) (Ondansetron 4 Mg/2 unknown) Ml Inj) 4 mg IV NOW ONE (unknown) (no (unknown) (unknown) Ordered: (units (unkno wn) date) unknown) (unknown) (no (unknown) (unknown) Ordering Provider: (units (unknown) date) Jung Dejesus D.O. unknown) (unknown) (no (unknown) (unknown) Orders (units (unkno wn) date) unknown) (unknown) (no (unknown) (unknown) PROCEDURE:? CT (units (unknown) date) CERVICAL SPINE WO unknown) CON (unknown) (no (unknown) (unknown) PROCEDURE:? CT (units (unknown) date) HEAD/BRAIN WO CON unknown) (unknown) (no (unknown) (unknown) PSYCHIATRIC: No (units (unknown) date) concerning unknown) psychosocial issues. (unknown) (no (unknown) (unknown) Pantoprazole (units (u nknown) date) Sodium unknown) (Pantoprazole 40 Mg Vial) 40 mg IV NOW ONE (unknown) (no (unknown) (unknown) Patient History (units (unknown) date) unknown) (unknown) (no (unknown) (unknown) Patient getting (units (unknown) date) shaky, sweaty, unknown) tachycardic, HTN, sweaty, and developing N/V/D. (unknown) (no (unknown) (unknown) Patient observed (units (unknown) date) for some time unknown) before labs added. He has continued to have a (unknown) (no (unknown) (unknown) Patient: (units (unkno wn) date) Dominic Viveros unknown) MR#: M (unknown) (no (unknown) (unknown) Patient: (units (unkno wn) date) Dominic Viveros unknown) (unknown) (no (unknown) (unknown) Maxim Valadez (units (un known) date) unknown) (unknown) (no (unknown) (unknown) Phenobarbital (units ( unknown) date) (Phenobarbital 65 unknown) Mg/Ml Vial) 260 mg IV NOW ONE (unknown) (no (unknown) (unknown) Potassium (units (unkn own) date) (3.4-5.1) mmol/L unknown) (unknown) (no (unknown) (unknown) Potassium (units (unkn own) date) (3.4-5.1) mmol/L unknown) (unknown) (no (unknown) (unknown) Potassium 4.5 (units (unknown) date) (3.4-5.1) mmol/L unknown) (unknown) (no (unknown) (unknown) Prescriptions: (units (unknown) date) unknown) (unknown) (no (unknown) (unknown) Procedure: CT (units ( unknown) date) cervical spine wo unknown) con (unknown) (no (unknown) (unknown) Procedure: CT (units ( unknown) date) head/brain wo con unknown) (unknown) (no (unknown) (unknown) Prolactin (units (unkn own) date) (3.7-17.9) ng/mL unknown) (unknown) (no (unknown) (unknown) Prolactin (units (unkn own) date) (3.7-17.9) ng/mL unknown) (unknown) (no (unknown) (unknown) Prolactin 18.9 H (units (unknown) date) (3.7-17.9) ng/mL unknown) (unknown) (no (unknown) (unknown) Prolactin Stat (units (unknown) date) unknown) (unknown) (no (unknown) (unknown) Pulse Oximetry 92 (units (unknown) date) 12/07/21 20:23 unknown) (unknown) (no (unknown) (unknown) Pulse Oximetry 91 (units (unknown) date) 96 unknown) (unknown) (no (unknown) (unknown) Pulse Rate 88 (units (unknown) date) 12/07/21 20:23 unknown) (unknown) (no (unknown) (unknown) Pulse Rate 85 67 (units (unknown) date) unknown) (unknown) (no (unknown) (unknown) RDW (units (unkno wn) date) (11.6-14.8) % unknown) (unknown) (no (unknown) (unknown) RDW (11.6-14.8) (units (unknown) date) % unknown) (unknown) (no (unknown) (unknown) RDW 13.7 (units (unkn own) date) (11.6-14.8) % unknown) (unknown) (no (unknown) (unknown) RESPIRATORY: Clear (units (unknown) date) to auscultation. unknown) Breath sounds equal bilaterally. No wheezes, (unknown) (no (unknown) (unknown) RESPIRATORY: (units (u nknown) date) Denies dyspnea, unknown) cough, wheezing, hemoptysis, sputum. (unknown) (no (unknown) (unknown) Dominic Viveros (units (unknown) date) D??76??M?? unknown) 5 (unknown) (no (unknown) (unknown) Reevaluation #1: (units (unknown) date) unknown) (unknown) (no (unknown) (unknown) Reevaluation #2: (units (unknown) date) unknown) (unknown) (no (unknown) (unknown) Reevaluation(s) (units (unknown) date) unknown) (unknown) (no (unknown) (unknown) Referrals: (units (unk nown) date) unknown) (unknown) (no (unknown) (unknown) Related Data (units (u nknown) date) unknown) (unknown) (no (unknown) (unknown) Respiratory Rate (units (unknown) date) 17 unknown) (unknown) (no (unknown) (unknown) Respiratory Rate (units (unknown) date) 22 12/07/21 20:23 unknown) (unknown) (no (unknown) (unknown) Result diagrams: (units (unknown) date) unknown) (unknown) (no (unknown) (unknown) Review of Systems (units (unknown) date) unknown) (unknown) (no (unknown) (unknown) Emeka Robertson (units (unknown) date) unknown) (unknown) (no (unknown) (unknown) Sudarshan Calderon (units (u nknown) date) unknown) (unknown) (no (unknown) (unknown) S/P CABG x 3 (units (u nknown) date) (-08/2007) unknown) (unknown) (no (unknown) (unknown) S/P cervical (units (u nknown) date) spinal fusion unknown) (unknown) (no (unknown) (unknown) S/P lumbar fusion (units (unknown) date) unknown) (unknown) (no (unknown) (unknown) SARS-CoV-2 (PCR) (units (unknown) date) (Negative) unknown) (unknown) (no (unknown) (unknown) SARS-CoV-2 (PCR) (units (unknown) date) (Negative) unknown) (unknown) (no (unknown) (unknown) SARS-CoV-2 (PCR) (units (unknown) date) Negative unknown) (Negative) (unknown) (no (unknown) (unknown) SKIN: Denies rash, (units (unknown) date) skin lesions, or unknown) other (unknown) (no (unknown) (unknown) SKIN: No rash or (units (unknown) date) erythema of visible unknown) areas (unknown) (no (unknown) (unknown) Sagittal (units (unkno wn) date) unknown) (unknown) (no (unknown) (unknown) Salicylate Stat (units (unknown) date) unknown) (unknown) (no (unknown) (unknown) Salicylates (units (un known) date) (<20) mg/dL unknown) (unknown) (no (unknown) (unknown) Salicylates (units (un known) date) (<20) mg/dL unknown) (unknown) (no (unknown) (unknown) Salicylates < (units (unknown) date) 1.0 (<20) mg/dL unknown) (unknown) (no (unknown) (unknown) Signed By: (units (unk nown) date) unknown) (unknown) (no (unknown) (unknown) Sinuses:? (units (unkn own) date) Visualized sinuses unknown) redemonstrate wall thickening and mucoperiosteal (unknown) (no (unknown) (unknown) Skull and face:? (units (unknown) date) Calvarium and unknown) visualized facial bones appear intact, without (unknown) (no (unknown) (unknown) Smoking Status: (units (unknown) date) Former smoker unknown) (unknown) (no (unknown) (unknown) Smoking Status: (units (unknown) date) Former smoker unknown) (unknown) (no (unknown) (unknown) Social History (units (unknown) date) (Reviewed 12/08/21 unknown) @ 01:57 by Jung Dejesus DO) (unknown) (no (unknown) (unknown) Sodium (units (unkno wn) date) (137-145) mmol/L unknown) (unknown) (no (unknown) (unknown) Sodium (units (unkno wn) date) (137-145) mmol/L unknown) (unknown) (no (unknown) (unknown) Sodium 140 (units (u nknown) date) (137-145) mmol/L unknown) (unknown) (no (unknown) (unknown) Sodium Chloride (units (unknown) date) (Normal Saline unknown) 0.9%) 1,000 mls @ 150 mls/hr IV CONT BLOSSOM (unknown) (no (unknown) (unknown) Soft tissues:? (units (unknown) date) Prevertebral soft unknown) tissues are normal in thickness.? No (unknown) (no (unknown) (unknown) Source: patient, (units (unknown) date) family and EMS unknown) (unknown) (no (unknown) (unknown) Stated Complaint: (units (unknown) date) Back Pain unknown) (unknown) (no (unknown) (unknown) [id number] (units (unknown) date) Reductase AdvReac unknown) Mild WEAK Verified 11/28/21 15:33 (unknown) (no (unknown) (unknown) Strong concern (units (unknown) date) that he is unknown) developing withdrawals though he denies frequent (unknown) (no (unknown) (unknown) Substance Use (units ( unknown) date) Type: does not use unknown) (unknown) (no (unknown) (unknown) Sulfa (Sulfonamide (units (unknown) date) Allergy Mild RASH unknown) Verified 11/28/21 15:33 (unknown) (no (unknown) (unknown) Surgical History (units (unknown) date) (Reviewed 12/08/21 unknown) @ 01:57 by Jung Dejesus DO) (unknown) (no (unknown) (unknown) Andre Spear (units ( unknown) date) unknown) (unknown) (no (unknown) (unknown) TECHNIQUE:? (units (un known) date) unknown) (unknown) (no (unknown) (unknown) TSH (units (unkno wn) date) (0.47-4.68) uIU/mL unknown) (unknown) (no (unknown) (unknown) TSH (0.47-4.68) (units (unknown) date) uIU/mL unknown) (unknown) (no (unknown) (unknown) TSH 2.07 (units (unkn own) date) (0.47-4.68) uIU/mL unknown) (unknown) (no (unknown) (unknown) Telemetry Strips (units (unknown) date) unknown) (unknown) (no (unknown) (unknown) Temperature 97.8 (units (unknown) date) F unknown) (unknown) (no (unknown) (unknown) Temperature 97.4 (units (unknown) date) F L 12/07/21 20:23 unknown) (unknown) (no (unknown) (unknown) There is a small (units (unknown) date) right choroidal unknown) fissure cyst redemonstrated.? (unknown) (no (unknown) (unknown) There is mild (units ( unknown) date) cerebral volume unknown) loss, with resultant ventricular and sulcal (unknown) (no (unknown) (unknown) Thyroid (units (unkno wn) date) Stimulating Hormone unknown) Stat (unknown) (no (unknown) (unknown) Tibia/Fibula X-Ray (units (unknown) date) (Signed) unknown) (unknown) (no (unknown) (unknown) Time Seen by (units (u nknown) date) Provider: 12/07/21 unknown) 20:22 (unknown) (no (unknown) (unknown) Time: 06:09 (units (un known) date) unknown) (unknown) (no (unknown) (unknown) Total Bilirubin (units (unknown) date) (0.2-1.3) mg/dL unknown) (unknown) (no (unknown) (unknown) Total Bilirubin (units (unknown) date) (0.2-1.3) mg/dL unknown) (unknown) (no (unknown) (unknown) Total Bilirubin (units (unknown) date) 0.9 (0.2-1.3) unknown) mg/dL (unknown) (no (unknown) (unknown) Total Protein (units ( unknown) date) (6.3-8.2) g/dL unknown) (unknown) (no (unknown) (unknown) Total Protein (units ( unknown) date) (6.3-8.2) g/dL unknown) (unknown) (no (unknown) (unknown) Total Protein (units ( unknown) date) 7.0 (6.3-8.2) unknown) g/dL (unknown) (no (unknown) (unknown) U Benzodiazepines (units (unknown) date) Scrn (Negative) unknown) (unknown) (no (unknown) (unknown) U Benzodiazepines (units (unknown) date) Scrn Positive H unknown) (Negative) (unknown) (no (unknown) (unknown) U Marijuana (THC) (units (unknown) date) Screen unknown) (Negative) (unknown) (no (unknown) (unknown) U Marijuana (THC) (units (unknown) date) Screen Negative unknown) (Negative) (unknown) (no (unknown) (unknown) U Methamphetamines (units (unknown) date) Scrn (Negative) unknown) (unknown) (no (unknown) (unknown) U Methamphetamines (units (unknown) date) Scrn Negative unknown) (Negative) (unknown) (no (unknown) (unknown) U Opiates 300ng/mL (units (unknown) date) cut (Negative) unknown) (unknown) (no (unknown) (unknown) U Opiates 300ng/mL (units (unknown) date) cut Positive H unknown) (Negative) (unknown) (no (unknown) (unknown) U Tricyclic (units (un known) date) Antidepress unknown) (Negative) (unknown) (no (unknown) (unknown) U Tricyclic (units (un known) date) Antidepress unknown) Negative (Negative) (unknown) (no (unknown) (unknown) Ur Amphetamines (units (unknown) date) Screen unknown) (Negative) (unknown) (no (unknown) (unknown) Ur Amphetamines (units (unknown) date) Screen Negative unknown) (Negative) (unknown) (no (unknown) (unknown) Ur Barbiturates (units (unknown) date) Screen unknown) (Negative) (unknown) (no (unknown) (unknown) Ur Barbiturates (units (unknown) date) Screen Negative unknown) (Negative) (unknown) (no (unknown) (unknown) Ur Culture (units (unk nown) date) Indicated? unknown) (unknown) (no (unknown) (unknown) Ur Culture (units (unk nown) date) Indicated? unknown) (unknown) (no (unknown) (unknown) Ur Culture (units (unk nown) date) Indicated? Cult unknown) not indicated (unknown) (no (unknown) (unknown) Ur Leukocyte (units (u nknown) date) Esterase unknown) (NEGATIVE) (unknown) (no (unknown) (unknown) Ur Leukocyte (units (u nknown) date) Esterase unknown) (NEGATIVE) (unknown) (no (unknown) (unknown) Ur Leukocyte (units (u nknown) date) Esterase unknown) Negative (NEGATIVE) (unknown) (no (unknown) (unknown) Ur MDMA Scrn (units (u nknown) date) (Ecstasy) unknown) (Negative) (unknown) (no (unknown) (unknown) Ur MDMA Scrn (units (u nknown) date) (Ecstasy) Negative unknown) (Negative) (unknown) (no (unknown) (unknown) Ur Oxycodone (units (u nknown) date) Screen unknown) (Negative) (unknown) (no (unknown) (unknown) Ur Oxycodone (units (u nknown) date) Screen Negative unknown) (Negative) (unknown) (no (unknown) (unknown) Ur Phencyclidine (units (unknown) date) Scrn (Negative) unknown) (unknown) (no (unknown) (unknown) Ur Phencyclidine (units (unknown) date) Scrn Negative unknown) (Negative) (unknown) (no (unknown) (unknown) Ur Specific (units (un known) date) Falcon unknown) (1.000-1.035) (unknown) (no (unknown) (unknown) Ur Specific (units (un known) date) Falcon unknown) (1.000-1.035) (unknown) (no (unknown) (unknown) Ur Specific (units (un known) date) Falcon 1.020 unknown) (1.000-1.035) (unknown) (no (unknown) (unknown) Ur Squamous Epith (units (unknown) date) Cells (0-5/HPF) unknown) (unknown) (no (unknown) (unknown) Ur Squamous Epith (units (unknown) date) Cells (0-5/HPF) unknown) (unknown) (no (unknown) (unknown) Ur Squamous Epith (units (unknown) date) Cells 0-1 /hpf unknown) (0-5/HPF) (unknown) (no (unknown) (unknown) Urinalysis and (units (unknown) date) Microscopic Stat unknown) (unknown) (no (unknown) (unknown) Urine Appearance (units (unknown) date) unknown) (unknown) (no (unknown) (unknown) Urine Appearance (units (unknown) date) unknown) (unknown) (no (unknown) (unknown) Urine Appearance (units (unknown) date) Clear unknown) (unknown) (no (unknown) (unknown) Urine Bacteria (units (unknown) date) (None) unknown) (unknown) (no (unknown) (unknown) Urine Bacteria (units (unknown) date) (None) unknown) (unknown) (no (unknown) (unknown) Urine Bacteria (units (unknown) date) None seen (None) unknown) (unknown) (no (unknown) (unknown) Urine Bilirubin (units (unknown) date) (NEGATIVE) unknown) (unknown) (no (unknown) (unknown) Urine Bilirubin (units (unknown) date) (NEGATIVE) unknown) (unknown) (no (unknown) (unknown) Urine Bilirubin (units (unknown) date) Negative unknown) (NEGATIVE) (unknown) (no (unknown) (unknown) Urine Cocaine (units ( unknown) date) Screen unknown) (Negative) (unknown) (no (unknown) (unknown) Urine Cocaine (units ( unknown) date) Screen Negative unknown) (Negative) (unknown) (no (unknown) (unknown) Urine Color (units (un known) date) unknown) (unknown) (no (unknown) (unknown) Urine Color (units (un known) date) unknown) (unknown) (no (unknown) (unknown) Urine Color (units (un known) date) Yellow unknown) (unknown) (no (unknown) (unknown) Urine Drug Screen, (units (unknown) date) Rapid Stat unknown) (unknown) (no (unknown) (unknown) Urine Glucose (UA) (units (unknown) date) (Negative) unknown) g/dL (unknown) (no (unknown) (unknown) Urine Glucose (UA) (units (unknown) date) (Negative) g/dL unknown) (unknown) (no (unknown) (unknown) Urine Glucose (UA) (units (unknown) date) Negative unknown) (Negative) g/dL (unknown) (no (unknown) (unknown) Urine Ketones (units ( unknown) date) (NEGATIVE) unknown) (unknown) (no (unknown) (unknown) Urine Ketones (units ( unknown) date) (NEGATIVE) unknown) (unknown) (no (unknown) (unknown) Urine Ketones (units ( unknown) date) Trace H (NEGATIVE) unknown) (unknown) (no (unknown) (unknown) Urine Methadone (units (unknown) date) Screen unknown) (Negative) (unknown) (no (unknown) (unknown) Urine Methadone (units (unknown) date) Screen Negative unknown) (Negative) (unknown) (no (unknown) (unknown) Urine Nitrate (units ( unknown) date) (Negative) unknown) (unknown) (no (unknown) (unknown) Urine Nitrate (units ( unknown) date) (Negative) unknown) (unknown) (no (unknown) (unknown) Urine Nitrate (units ( unknown) date) Negative unknown) (Negative) (unknown) (no (unknown) (unknown) Urine Occult Blood (units (unknown) date) (Negative) unknown) (unknown) (no (unknown) (unknown) Urine Occult Blood (units (unknown) date) (Negative) unknown) (unknown) (no (unknown) (unknown) Urine Occult Blood (units (unknown) date) Negative unknown) (Negative) (unknown) (no (unknown) (unknown) Urine Protein (units ( unknown) date) (Negative) unknown) (unknown) (no (unknown) (unknown) Urine Protein (units ( unknown) date) (Negative) unknown) (unknown) (no (unknown) (unknown) Urine Protein (units ( unknown) date) Negative unknown) (Negative) (unknown) (no (unknown) (unknown) Urine RBC (units (unkn own) date) (0-5/HPF) unknown) (unknown) (no (unknown) (unknown) Urine RBC (units (unkn own) date) (0-5/HPF) unknown) (unknown) (no (unknown) (unknown) Urine RBC None (units (unknown) date) seen (0-5/HPF) unknown) (unknown) (no (unknown) (unknown) Urine Urobilinogen (units (unknown) date) (0.2) E.U./dL unknown) (unknown) (no (unknown) (unknown) Urine Urobilinogen (units (unknown) date) (0.2) E.U./dL unknown) (unknown) (no (unknown) (unknown) Urine Urobilinogen (units (unknown) date) 0.2 (0.2) unknown) E.U./dL (unknown) (no (unknown) (unknown) Urine WBC (units (unkn own) date) (0-5/HPF) unknown) (unknown) (no (unknown) (unknown) Urine WBC (units (unkn own) date) (0-5/HPF) unknown) (unknown) (no (unknown) (unknown) Urine WBC None (units (unknown) date) seen (0-5/HPF) unknown) (unknown) (no (unknown) (unknown) Urine pH (units (unkno wn) date) (4.5-8.0) unknown) (unknown) (no (unknown) (unknown) Urine pH (units (unkno wn) date) (4.5-8.0) unknown) (unknown) (no (unknown) (unknown) Urine pH 5.0 (units (unknown) date) (4.5-8.0) unknown) (unknown) (no (unknown) (unknown) Vascular (units (unkno wn) date) Ultrasound (Signed) unknown) (unknown) (no (unknown) (unknown) Ventricular (units (un known) date) bigeminy unknown) (unknown) (no (unknown) (unknown) Vital Signs (units (un known) date) unknown) (unknown) (no (unknown) (unknown) Vital signs: (units (u nknown) date) unknown) (unknown) (no (unknown) (unknown) Charles,Lexx (units (u nknown) date) unknown) (unknown) (no (unknown) (unknown) [Embedded Image (units (unknown) date) Not Available] unknown) (unknown) (no (unknown) (unknown) [[id number] (units (unknown) date) REDUCTASE unknown) (unknown) (no (unknown) (unknown) [SULFA (units (unkno wn) date) (SULFONAMIDE unknown) (unknown) (no (unknown) (unknown) acetaminophen 300 (units (unknown) date) mg-codeine 30 mg 1 unknown) tab PO Q6HR PRN 10/08/21 10/08/21 (unknown) (no (unknown) (unknown) acetaminophen 325 (units (unknown) date) mg tablet 650 mg PO unknown) Q6H PRN #60 tab 11/06/20 (unknown) (no (unknown) (unknown) albuterol sulfate (units (unknown) date) 1.25 mg/3 mL 2.5 mg unknown) (6 mL) INHALATION QID #90 ml 11/28/21 (unknown) (no (unknown) (unknown) alcohol intake (units (unknown) date) frequency: unknown) holidays/special occasions only (unknown) (no (unknown) (unknown) alcohol intake: (units (unknown) date) current unknown) (unknown) (no (unknown) (unknown) and coronal (units (un known) date) reformats were then unknown) constructed.? For radiation dose reduction, the (unknown) (no (unknown) (unknown) and shape.? (units (un known) date) unknown) (unknown) (no (unknown) (unknown) appears (units (unkno wn) date) preserved.? There unknown) is intracranial internal carotid artery (unknown) (no (unknown) (unknown) approximately 0.2 (units (unknown) date) cm. unknown) (unknown) (no (unknown) (unknown) approximately 0.4 (units (unknown) date) cm and minimal unknown) anterolisthesis at C3-C4 measuring (unknown) (no (unknown) (unknown) arthropathy (units (un known) date) throughout the unknown) cervical spine.? Visualized superior ribs are (unknown) (no (unknown) (unknown) atherosclerosis.? (units (unknown) date) unknown) (unknown) (no (unknown) (unknown) benzonatate 100 mg (units (unknown) date) capsule 100 mg PO unknown) TID PRN #14 cap 03/05/21 (unknown) (no (unknown) (unknown) buprenorphine (units ( unknown) date) [BUPRENORPHINE] unknown) AdvReac Mild NAUSEA, Verified 11/28/21 15:33 (unknown) (no (unknown) (unknown) buprenorphine, (units (unknown) date) hyoscyamine, unknown) [id number] Reductase Inhibitor, diazepam (unknown) (no (unknown) (unknown) cefdinir 300 mg (units (unknown) date) capsule 300 mg PO unknown) BID #20 cap 10/09/21 (unknown) (no (unknown) (unknown) celecoxib (units (unkn own) date) [CELECOXIB] Allergy unknown) Mild SWELLING Verified 11/28/21 15:33 (unknown) (no (unknown) (unknown) cetirizine 10 mg (units (unknown) date) capsule (Zyrtec) 10 unknown) mg PO DAILY 05/22/19 10/08/21 (unknown) (no (unknown) (unknown) chronic back pain, (units (unknown) date) ataxia, AFib, COPD unknown) presents for evaluation of a witnessed (unknown) (no (unknown) (unknown) chronic sinusitis. (units (unknown) date) unknown) (unknown) (no (unknown) (unknown) constipation, (units ( unknown) date) melena. unknown) (unknown) (no (unknown) (unknown) consumed a large (units (unknown) date) amount of alcohol unknown) tonight in addition to many other medications (unknown) (no (unknown) (unknown) contusion, (units (unk nown) date) laceration, unknown) hematoma or evidence of depressed skull fracture (unknown) (no (unknown) (unknown) degeneration also (units (unknown) date) demonstrated at unknown) C2-C3 and C3-C4.? There is multilevel moderate (unknown) (no (unknown) (unknown) degenerative disc (units (unknown) date) disease within the unknown) visualized upper thoracic spine.? Mild disc (unknown) (no (unknown) (unknown) diazepam [From (units (unknown) date) Valium] AdvReac unknown) Confusion Verified 11/28/21 15:33 (unknown) (no (unknown) (unknown) diclofenac sodium (units (unknown) date) 1 % topical gel 2 g unknown) TOPICAL QID #100 g 11/19/21 (unknown) (no (unknown) (unknown) difficult time (units ( unknown) date) ambulating and is unknown) unsafe to discharge at this time. His has (unknown) (no (unknown) (unknown) drinking. (units (unkn own) date) Phenobarb ordered unknown) and moved to room with monitor (unknown) (no (unknown) (unknown) ferrous sulfate (units (unknown) date) 325 mg (65 mg 325 unknown) mg PO DAILY 10/19/19 10/08/21 (unknown) (no (unknown) (unknown) fluticasone (units (un known) date) propionate 50 1 unknown) spray INTRANASAL DAILY PRN #0 11/02/17 10/08/21 (unknown) (no (unknown) (unknown) following (units (unkn own) date) unknown) (unknown) (no (unknown) (unknown) furosemide 40 mg (units (unknown) date) tablet (Lasix) 40 unknown) mg PO DAILY 10/08/21 10/08/21 (unknown) (no (unknown) (unknown) glipizide 2.5 mg (units (unknown) date) tablet, extended unknown) 2.5 mg PO DAILY 10/08/21 10/08/21 (unknown) (no (unknown) (unknown) ground level fall. (units (unknown) date) He stumbled and unknown) fell forward, striking his nose. There was (unknown) (no (unknown) (unknown) hand (units (unkno wn) date) unknown) (unknown) (no (unknown) (unknown) hematomas.? No (units (unknown) date) apical unknown) pneumothoraces.? (unknown) (no (unknown) (unknown) household members: (units (unknown) date) spouse unknown) (unknown) (no (unknown) (unknown) hyoscyamine (units (un known) date) [HYOSCYAMINE] unknown) AdvReac Mild LEG Verified 11/28/21 15:33 (unknown) (no (unknown) (unknown) intact.? (units (unkno wn) date) unknown) (unknown) (no (unknown) (unknown) iron) (units (unkno wn) date) tablet,delayed unknown) release (unknown) (no (unknown) (unknown) latex [LATEX] (units ( unknown) date) Allergy Mild RASH unknown) Verified 11/28/21 15:33 (unknown) (no (unknown) (unknown) lesions.? (units (unkn own) date) unknown) (unknown) (no (unknown) (unknown) levalbuterol HCl (units (unknown) date) 1.25 mg/3 mL 3 ml unknown) INHALATION Q6H PRN 10/16/18 10/08/21 (unknown) (no (unknown) (unknown) levalbuterol (units (u nknown) date) tartrate 45 1 puff unknown) INHALATION Q4-6H PRN #15 06/22/18 (unknown) (no (unknown) (unknown) mastoid air cells (units (unknown) date) are clear. unknown) (unknown) (no (unknown) (unknown) mcg/actuation (units ( unknown) date) aerosol inhaler unknown) gram (unknown) (no (unknown) (unknown) mcg/actuation (units ( unknown) date) nasal unknown) (unknown) (no (unknown) (unknown) measuring (units (unkn own) date) unknown) (unknown) (no (unknown) (unknown) meclizine 25 mg (units (unknown) date) tablet 25 mg PO QID unknown) PRN #30 tab 10/09/21 (unknown) (no (unknown) (unknown) methocarbamol 500 (units (unknown) date) mg tablet 500 mg PO unknown) Q8H PRN #14 tab 11/19/21 (unknown) (no (unknown) (unknown) metoprolol (units (unk nown) date) tartrate 100 mg unknown) tablet 100 mg PO BID 10/16/18 10/08/21 (unknown) (no (unknown) (unknown) mg tablet (units (unkn own) date) (Percocet) unknown) (unknown) (no (unknown) (unknown) mild distress. (units (unknown) date) GCS 15, smells of unknown) alcohol and slurring his words (unknown) (no (unknown) (unknown) moderate (units (unkno wn) date) unknown) (unknown) (no (unknown) (unknown) multiple levels as (units (unknown) date) described. unknown) (unknown) (no (unknown) (unknown) multivitamin (units (u nknown) date) (Multiple Vitamins) unknown) 1 tab PO DAILY #0 12/20/16 10/08/21 (unknown) (no (unknown) (unknown) no loss of (units (unk nown) date) consciousness and unknown) he has had no nausea or vomiting. He denies any (unknown) (no (unknown) (unknown) other injuries (units (unknown) date) such as neck, back unknown) or extremities. His states that he (unknown) (no (unknown) (unknown) oxycodone 5 mg (units (unknown) date) tablet 10 mg PO unknown) Q4-5H PRN #60 tab 11/06/20 (unknown) (no (unknown) (unknown) oxycodone-acetamin (units (unknown) date) ophen 5 mg-325 1 unknown) tab PO Q8H PRN #10 tab 11/19/21 (unknown) (no (unknown) (unknown) oxycodone-acetamin (units (unknown) date) ophen 5 mg-325 1 unknown) tab PO TID PRN #10 tab 11/19/21 (unknown) (no (unknown) (unknown) paravertebral (units ( unknown) date) unknown) (unknown) (no (unknown) (unknown) patient (units (unkno wn) date) unknown) (unknown) (no (unknown) (unknown) prednisone 20 mg (units (unknown) date) tablet 20 mg PO unknown) DAILY #32 tab 11/28/21 (unknown) (no (unknown) (unknown) prednisone 50 mg (units (unknown) date) tablet 50 mg PO unknown) DAILY #5 tab 11/19/21 (unknown) (no (unknown) (unknown) prominence.? (units (u nknown) date) unknown) (unknown) (no (unknown) (unknown) release 24 hr (units ( unknown) date) (Glucotrol XL) unknown) (unknown) (no (unknown) (unknown) seizures, (units (unkn own) date) incoordination. unknown) (unknown) (no (unknown) (unknown) sequelae of (units (un known) date) unknown) (unknown) (no (unknown) (unknown) sinusitis.? The (units (unknown) date) unknown) (unknown) (no (unknown) (unknown) size.? (units (unkno wn) date) unknown) (unknown) (no (unknown) (unknown) solution for (units (u nknown) date) nebulization unknown) (unknown) (no (unknown) (unknown) solution for (units (u nknown) date) nebulization unknown) (unknown) (no (unknown) (unknown) spray,suspension (units (unknown) date) unknown) (unknown) (no (unknown) (unknown) study.? There are (units (unknown) date) postsurgical unknown) changes also redemonstrated status post prior (unknown) (no (unknown) (unknown) substance use (units ( unknown) date) type: does not use unknown) (unknown) (no (unknown) (unknown) suspicious (units (unk nown) date) unknown) (unknown) (no (unknown) (unknown) tablet (units (unkno wn) date) unknown) (unknown) (no (unknown) (unknown) that he would (units ( unknown) date) routinely take. He unknown) is activated as a modified trauma. (unknown) (no (unknown) (unknown) the prior (units (unkn own) date) unknown) (unknown) (no (unknown) (unknown) thickening (units (unk nown) date) unknown) (unknown) (no (unknown) (unknown) to the (units (unkno wn) date) unknown) (unknown) (no (unknown) (unknown) trazodone 100 mg (units (unknown) date) tablet 400 tab PO unknown) BEDTIME 12/09/17 10/08/21 (unknown) (no (unknown) (unknown) varenicline (units (un known) date) [VARENICLINE] unknown) AdvReac Severe Paranoia Verified 11/28/21 15:33 (unknown) (no (unknown) (unknown) vertex, with (units (u nknown) date) coronal and unknown) sagittal reformats.? For radiation dose reduction, the (unknown) (no (unknown) (unknown) was used:? (units (unk nown) date) automated exposure unknown) control, adjustment of mA and/or kV according to (unknown) (no (unknown) (unknown) within the (units (unk nown) date) visualized left unknown) maxillary sinus suggesting sequelae of chronic (unknown) (no (unknown) (unknown) without erythema, (units (unknown) date) tonsillar unknown) hypertrophy or exudate. Airway patent. Result panel 39 (unknown) (no (unknown) (unknown) (no value) (units (unk nown) date) unknown) (unknown) (no (unknown) (unknown) Radiologist's (units ( unknown) date) Impression: unknown) (unknown) (no (unknown) (unknown) (no value) (units (unk nown) date) unknown) (unknown) (no (unknown) (unknown) Date of Service: (units (unknown) date) 12/07/21 unknown) (unknown) (no (unknown) (unknown) (no value) (units (unk nown) date) unknown) (unknown) (no (unknown) (unknown) 12/07/21 23:05 (units (unknown) date) unknown) (unknown) (no (unknown) (unknown) 1 puff INHALATION (units (unknown) date) Q4-6H PRN (Reason: unknown) shortness of breath or wheezing) Qty: 15 (unknown) (no (unknown) (unknown) 1 spray Intranasal (units (unknown) date) DAILY PRN (Reason: unknown) Allergy Symptoms) Qty: 0 0RF (unknown) (no (unknown) (unknown) 1 tab PO DAILY (units (unknown) date) Qty: 0 0RF unknown) (unknown) (no (unknown) (unknown) 1 tab PO Q6HR PRN (units (unknown) date) (Reason: Back Pain) unknown) 0RF (unknown) (no (unknown) (unknown) 1 tab PO Q8H PRN (units (unknown) date) (Reason: pain) Qty: unknown) 10 0RF (unknown) (no (unknown) (unknown) 1 tab PO TID PRN (units (unknown) date) (Reason: pain) Qty: unknown) 10 0RF (unknown) (no (unknown) (unknown) 10 mg PO DAILY 0RF (units (unknown) date) unknown) (unknown) (no (unknown) (unknown) 10 mg PO Q4-5H PRN (units (unknown) date) (Reason: Pain, unknown) Severe (7-10)) Qty: 60 0RF (unknown) (no (unknown) (unknown) 100 mg PO BID 0RF (units (unknown) date) unknown) (unknown) (no (unknown) (unknown) 100 mg PO TID PRN (units (unknown) date) (Reason: cough) unknown) Qty: 14 0RF (unknown) (no (unknown) (unknown) [address] (units (unknown) date) unknown) (unknown) (no (unknown) (unknown) 2 g topical QID (units (unknown) date) Qty: 100 0RF unknown) (unknown) (no (unknown) (unknown) 2.5 mg PO DAILY (units (unknown) date) 0RF unknown) (unknown) (no (unknown) (unknown) 2.5 mg inhalation (units (unknown) date) QID Qty: 90 1RF unknown) (unknown) (no (unknown) (unknown) 20 mg PO DAILY (units (unknown) date) Qty: 32 0RF unknown) (unknown) (no (unknown) (unknown) 25 mg PO QID PRN (units (unknown) date) (Reason: vertigo) unknown) Qty: 30 0RF (unknown) (no (unknown) (unknown) 3 ml Inhalation (units (unknown) date) Q6H PRN (Reason: unknown) Shortness Of Breath) 0RF (unknown) (no (unknown) (unknown) 300 mg PO BID Qty: (units (unknown) date) 20 0RF unknown) (unknown) (no (unknown) (unknown) 325 mg PO DAILY (units (unknown) date) 0RF unknown) (unknown) (no (unknown) (unknown) 40 mg PO DAILY 0RF (units (unknown) date) unknown) (unknown) (no (unknown) (unknown) 400 tab PO BEDTIME (units (unknown) date) 0RF unknown) (unknown) (no (unknown) (unknown) 50 mg PO DAILY (units (unknown) date) Qty: 5 0RF unknown) (unknown) (no (unknown) (unknown) 500 mg PO Q8H PRN (units (unknown) date) (Reason: muscle unknown) spasm) Qty: 14 0RF (unknown) (no (unknown) (unknown) 60mg x 5 day, 40mg (units (unknown) date) x 5 day, 20mg x5 unknown) day, 10mg x 4 days (unknown) (no (unknown) (unknown) 650 mg PO Q6H PRN (units (unknown) date) (Reason: pain) Qty: unknown) 60 0RF (unknown) (no (unknown) (unknown) ANXIETY, (units (unkno wn) date) unknown) (unknown) (no (unknown) (unknown) Admin: 12/07/21 (units (unknown) date) 23:25 Dose: 150 unknown) mls/hr (unknown) (no (unknown) (unknown) Allergies (units (unkn own) date) unknown) (unknown) (no (unknown) (unknown) [place] (units ( unknown) date) [id number] unknown) (unknown) (no (unknown) (unknown) CT Scan Report (units (unknown) date) unknown) (unknown) (no (unknown) (unknown) Close (units (unkno wn) date) unknown) (unknown) (no (unknown) (unknown) DIZZINESS (units (unkn own) date) unknown) (unknown) (no (unknown) (unknown) Documented by: (units (unknown) date) unknown) (unknown) (no (unknown) (unknown) Documented by: (units (unknown) date) [email or web address] unknown) (unknown) (no (unknown) (unknown) Documented by: (units (unknown) date) RLAZANI unknown) (unknown) (no (unknown) (unknown) ED Orders (units (unkn own) date) unknown) (unknown) (no (unknown) (unknown) EXPOSURE (units (unkno wn) date) unknown) (unknown) (no (unknown) (unknown) Emergency Report (units (unknown) date) unknown) (unknown) (no (unknown) (unknown) Home Medications (units (unknown) date) unknown) (unknown) (no (unknown) (unknown) INHALE 1 VIAL PER (units (unknown) date) NEBULIZER EVERY 6 unknown) HOURS NEEDED (unknown) (no (unknown) (unknown) [facility] (units (unknown) date) unknown) (unknown) (no (unknown) (unknown) [facility] (units (unknown) date) [address] [place] [address] unknown) [place] [id number] (unknown) (no (unknown) (unknown) JERKING, (units (unkno wn) date) unknown) (unknown) (no (unknown) (unknown) Lab Results (units (un known) date) unknown) (unknown) (no (unknown) (unknown) Label Comments: (units (unknown) date) unknown) (unknown) (no (unknown) (unknown) Last Admin: (units (un known) date) 12/08/21 01:35 unknown) Dose: 1 tab (unknown) (no (unknown) (unknown) Last Admin: (units (un known) date) 12/08/21 02:34 unknown) Dose: 4 mg (unknown) (no (unknown) (unknown) Last Admin: (units (un known) date) 12/08/21 04:04 unknown) Dose: 0.5 mg (unknown) (no (unknown) (unknown) Last Admin: (units (un known) date) 12/08/21 05:53 unknown) Dose: 4 mg (unknown) (no (unknown) (unknown) Last Admin: (units (un known) date) 12/08/21 05:53 unknown) Dose: 40 mg (unknown) (no (unknown) (unknown) Last Admin: (units (un known) date) 12/08/21 06:11 unknown) Dose: 260 mg (unknown) (no (unknown) (unknown) Last Admin: (units (un known) date) 12/08/21 06:42 unknown) Dose: 20 mg (unknown) (no (unknown) (unknown) Last Admin: (units (un known) date) 12/08/21 06:47 unknown) Dose: Not Given (unknown) (no (unknown) (unknown) Last Infusion: (units (unknown) date) 12/08/21 04:00 unknown) Dose: 0 mls/hr (unknown) (no (unknown) (unknown) Launch?Image (units (u nknown) date) unknown) (unknown) (no (unknown) (unknown) MINUTES (units (unkno wn) date) unknown) (unknown) (no (unknown) (unknown) NAUSEA W/I (units (unk nown) date) unknown) (unknown) (no (unknown) (unknown) Point of Care (units ( unknown) date) Testing unknown) (unknown) (no (unknown) (unknown) Previous Rx's (units ( unknown) date) unknown) (unknown) (no (unknown) (unknown) Rx Instructions: (units (unknown) date) unknown) (unknown) (no (unknown) (unknown) Signed (units (unkno wn) date) unknown) (unknown) (no (unknown) (unknown) Spouse Milana (units (u nknown) date) called + reported unknown) patient not taking it regularly. (unknown) (no (unknown) (unknown) Stop: 12/08/21 (units (unknown) date) 01:26 unknown) (unknown) (no (unknown) (unknown) Stop: 12/08/21 (units (unknown) date) 02:32 unknown) (unknown) (no (unknown) (unknown) Stop: 12/08/21 (units (unknown) date) 04:01 unknown) (unknown) (no (unknown) (unknown) Stop: 12/08/21 (units (unknown) date) 05:47 unknown) (unknown) (no (unknown) (unknown) Stop: 12/08/21 (units (unknown) date) 05:50 unknown) (unknown) (no (unknown) (unknown) Stop: 12/08/21 (units (unknown) date) 06:04 unknown) (unknown) (no (unknown) (unknown) Stop: 12/08/21 (units (unknown) date) 06:31 unknown) (unknown) (no (unknown) (unknown) Vital Signs - 8 hr (units (unknown) date) unknown) (unknown) (no (unknown) (unknown) W/EXTENDED (units (unk nown) date) unknown) (unknown) (no (unknown) (unknown) apply to single (units (unknown) date) elbow, wrist or unknown) hand; for hand includes palm/fingers/back of (unknown) (no (unknown) (unknown) patient states (units (unknown) date) weaning off. unknown) (unknown) (no (unknown) (unknown) take 1 tablet by (units (unknown) date) mouth once daily unknown) (unknown) (no (unknown) (unknown) take 1 tablet by (units (unknown) date) mouth twice a day unknown) (unknown) (no (unknown) (unknown) (no value) (units (unk nown) date) unknown) (unknown) (no (unknown) (unknown) 12/07/21 12/07/21 (units (unknown) date) 12/07/21 unknown) Range/Units (unknown) (no (unknown) (unknown) 12/07/21 12/08/21 (units (unknown) date) Range/Units unknown) (unknown) (no (unknown) (unknown) 23:05 23:05 23:05 (units (unknown) date) unknown) (unknown) (no (unknown) (unknown) 23:05 23:44 23:57 (units (unknown) date) unknown) (unknown) (no (unknown) (unknown) 23:57 01:33 (units (un known) date) unknown) (unknown) (no (unknown) (unknown) Zyrtec 10 mg (units (u nknown) date) Capsule unknown) (unknown) (no (unknown) (unknown) acetaminophen (units ( unknown) date) [Athenol] 325 mg unknown) tablet (unknown) (no (unknown) (unknown) acetaminophen-code (units (unknown) date) ine 300-30 mg unknown) tablet (unknown) (no (unknown) (unknown) albuterol sulfate (units (unknown) date) 1.25 mg/3 mL unknown) solution for nebulization (unknown) (no (unknown) (unknown) benzonatate (units (un known) date) [Tessalon Perles] unknown) 100 mg capsule (unknown) (no (unknown) (unknown) cefdinir 300 mg (units (unknown) date) capsule unknown) (unknown) (no (unknown) (unknown) diclofenac sodium (units (unknown) date) 1 % gel unknown) (unknown) (no (unknown) (unknown) ferrous sulfate (units (unknown) date) 325 mg (65 mg iron) unknown) tablet,delayed release (DR/EC) (unknown) (no (unknown) (unknown) fluticasone (units (un known) date) propionate 16 GM unknown) spray,suspension (unknown) (no (unknown) (unknown) furosemide [Lasix] (units (unknown) date) 40 mg tablet unknown) (unknown) (no (unknown) (unknown) glipizide (units (unkn own) date) [Glucotrol XL] 2.5 unknown) mg tablet extended release 24 hr (unknown) (no (unknown) (unknown) levalbuterol HCl (units (unknown) date) 1.25 mg/3 mL unknown) solution for nebulization (unknown) (no (unknown) (unknown) levalbuterol (units (u nknown) date) tartrate [Xopenex unknown) HFA] 45 mcg/actuation HFA aerosol inhaler (unknown) (no (unknown) (unknown) meclizine 25 mg (units (unknown) date) tablet unknown) (unknown) (no (unknown) (unknown) methocarbamol 500 (units (unknown) date) mg tablet unknown) (unknown) (no (unknown) (unknown) metoprolol (units (unk nown) date) tartrate 100 mg unknown) tablet (unknown) (no (unknown) (unknown) multivitamin (units (u nknown) date) [Multiple Vitamins] unknown) 1 EACH tablet (unknown) (no (unknown) (unknown) oxycodone 5 mg (units (unknown) date) Tablet unknown) (unknown) (no (unknown) (unknown) oxycodone-acetamin (units (unknown) date) ophen [Percocet] unknown) 5-325 mg tablet (unknown) (no (unknown) (unknown) prednisone 20 mg (units (unknown) date) tablet unknown) (unknown) (no (unknown) (unknown) prednisone 50 mg (units (unknown) date) tablet unknown) (unknown) (no (unknown) (unknown) trazodone 100 mg (units (unknown) date) tablet unknown) (unknown) (no (unknown) (unknown) 12/07/21 (units (unkno wn) date) unknown) (unknown) (no (unknown) (unknown) Medication (units (unk nown) date) Instructions unknown) Recorded (unknown) (no (unknown) (unknown) Medication (units (unk nown) date) Instructions unknown) Recorded Confirmed (unknown) (no (unknown) (unknown) been contacted and (units (unknown) date) she will be able to unknown) come pick him up in the morning. (unknown) (no (unknown) (unknown) facet (units (unkno wn) date) unknown) (unknown) (no (unknown) (unknown) junction (units (unkno wn) date) unknown) (unknown) (no (unknown) (unknown) of (units (unkno wn) date) unknown) (unknown) (no (unknown) (unknown) rales, or rhonchi. (units (unknown) date) unknown) (unknown) (no (unknown) (unknown) (Athenol) (units (unkn own) date) unknown) (unknown) (no (unknown) (unknown) (More??) (units (unkno wn) date) unknown) (unknown) (no (unknown) (unknown) (Tessalon Perles) (units (unknown) date) unknown) (unknown) (no (unknown) (unknown) (Xopenex HFA) (units ( unknown) date) unknown) (unknown) (no (unknown) (unknown) - (units (unkno wn) date) unknown) (unknown) (no (unknown) (unknown) [id number] (units (unkn own) date) unknown) (unknown) (no (unknown) (unknown) 08/11/20 (units (unkno wn) date) unknown) (unknown) (no (unknown) (unknown) 08/16/20 (units (unkno wn) date) unknown) (unknown) (no (unknown) (unknown) 08/28/20 (units (unkno wn) date) unknown) (unknown) (no (unknown) (unknown) 09/15/21 (units (unkno wn) date) unknown) (unknown) (no (unknown) (unknown) 10/07/21 (units (unkno wn) date) unknown) (unknown) (no (unknown) (unknown) 10/08/21 (units (unkno wn) date) unknown) (unknown) (no (unknown) (unknown) 10/31/20 (units (unkno wn) date) unknown) (unknown) (no (unknown) (unknown) 11/04/20 (units (unkno wn) date) unknown) (unknown) (no (unknown) (unknown) 11/07/20 (units (unkno wn) date) unknown) (unknown) (no (unknown) (unknown) 11/19/21 (units (unkno wn) date) unknown) (unknown) (no (unknown) (unknown) 11/22/20 (units (unkno wn) date) unknown) (unknown) (no (unknown) (unknown) 11/28/21 (units (unkno wn) date) unknown) (unknown) (no (unknown) (unknown) 12/07/21 (units (unkno wn) date) unknown) (unknown) (no (unknown) (unknown) 12/07/21 23:05 (units (unknown) date) unknown) (unknown) (no (unknown) (unknown) 12/07/21 23:21 (units (unknown) date) unknown) (unknown) (no (unknown) (unknown) 12/07/21 23:44 (units (unknown) date) unknown) (unknown) (no (unknown) (unknown) 12/07/21 23:57 (units (unknown) date) unknown) (unknown) (no (unknown) (unknown) 12/08/21 03:22 (units (unknown) date) unknown) (unknown) (no (unknown) (unknown) 12/28/20 (units (unkno wn) date) unknown) (unknown) (no (unknown) (unknown) 05:35 12/08/21 (units (unknown) date) unknown) (unknown) (no (unknown) (unknown) 05:37 (units (unkno wn) date) unknown) (unknown) (no (unknown) (unknown) 03/05/21 (units (unkno wn) date) unknown) (unknown) (no (unknown) (unknown) 04/16/21 (units (unkno wn) date) unknown) (unknown) (no (unknown) (unknown) 0RF (units (unkno wn) date) unknown) (unknown) (no (unknown) (unknown) 1. No acute (units (un known) date) intracranial unknown) abnormality. (unknown) (no (unknown) (unknown) 1.? No acute (units (u nknown) date) fracture or unknown) subluxation. (unknown) (no (unknown) (unknown) 12 point review of (units (unknown) date) systems is negative unknown) except for those stated above (unknown) (no (unknown) (unknown) 07/18/20 (units (unkno wn) date) unknown) (unknown) (no (unknown) (unknown) 2. Bony remodeling (units (unknown) date) in the left unknown) maxillary sinus redemonstrated consistent with (unknown) (no (unknown) (unknown) 2. Postsurgical (units (unknown) date) changes unknown) redemonstrated throughout the cervical spine with fusion (unknown) (no (unknown) (unknown) 23:17 12/08/21 (units (unknown) date) unknown) (unknown) (no (unknown) (unknown) 3. Mild cerebral (units (unknown) date) volume loss.? 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 (units (unkno wn) date) unknown) (unknown) (no (unknown) (unknown) ? (units (unkno wn) date) unknown) (unknown) (no (unknown) (unknown) ?Minimal (units (unkno wn) date) anterolisthesis unknown) also demonstrated at T1-T2.? Findings are similar to (unknown) (no (unknown) (unknown) ACDF at (units (unkno wn) date) unknown) (unknown) (no (unknown) (unknown) ALT (<50) (units ( unknown) date) IU/L unknown) (unknown) (no (unknown) (unknown) ALT (<50) IU/L (units (unknown) date) unknown) (unknown) (no (unknown) (unknown) ALT 31 (<50) (units (unknown) date) IU/L unknown) (unknown) (no (unknown) (unknown) ANTIBIOTICS)] (units ( unknown) date) unknown) (unknown) (no (unknown) (unknown) AST (17-59) (units (unknown) date) IU/L unknown) (unknown) (no (unknown) (unknown) AST (17-59) (units (unknown) date) IU/L unknown) (unknown) (no (unknown) (unknown) AST 32 (17-59) (units (unknown) date) IU/L unknown) (unknown) (no (unknown) (unknown) Accession Number: (units (unknown) date) [id number] ?? unknown) (unknown) (no (unknown) (unknown) Accession Number: (units (unknown) date) [id number] ?? unknown) (unknown) (no (unknown) (unknown) Acct:[id number] (units (unknown) date) unknown) (unknown) (no (unknown) (unknown) Acetaminophen (units ( unknown) date) (10-30) ug/mL unknown) (unknown) (no (unknown) (unknown) Acetaminophen (units ( unknown) date) (10-30) ug/mL unknown) (unknown) (no (unknown) (unknown) Acetaminophen < (units (unknown) date) 10 (10-30) ug/mL unknown) (unknown) (no (unknown) (unknown) Acetaminophen Stat (units (unknown) date) unknown) (unknown) (no (unknown) (unknown) Acetaminophen/Code (units (unknown) date) ine Phosphate unknown) (Codeine/Acetaminop hen 30/300 Tablet) 1 tab PO (unknown) (no (unknown) (unknown) Achalasia (units (unkn own) date) unknown) (unknown) (no (unknown) (unknown) Age/Sex: 76 / M (units (unknown) date) unknown) (unknown) (no (unknown) (unknown) Age/Sex: 76 / M (units (unknown) date) unknown) (unknown) (no (unknown) (unknown) Albumin (units (unkno wn) date) (3.5-5.0) g/dL unknown) (unknown) (no (unknown) (unknown) Albumin (units (unkno wn) date) (3.5-5.0) g/dL unknown) (unknown) (no (unknown) (unknown) Albumin 4.1 (units ( unknown) date) (3.5-5.0) g/dL unknown) (unknown) (no (unknown) (unknown) Albumin/Globulin (units (unknown) date) Ratio (1.0-2.8) unknown) (unknown) (no (unknown) (unknown) Albumin/Globulin (units (unknown) date) Ratio (1.0-2.8) unknown) (unknown) (no (unknown) (unknown) Albumin/Globulin (units (unknown) date) Ratio 1.4 unknown) (1.0-2.8) (unknown) (no (unknown) (unknown) Alkaline (units (unkno wn) date) Phosphatase unknown) (38-126) U/L (unknown) (no (unknown) (unknown) Alkaline (units (unkno wn) date) Phosphatase unknown) (38-126) U/L (unknown) (no (unknown) (unknown) Alkaline (units (unkno wn) date) Phosphatase 64 unknown) (38-126) U/L (unknown) (no (unknown) (unknown) Allergy/Adv: (units (u nknown) date) celecoxib, latex, unknown) Sulfa (Sulfonamide Antibiotics), varenicline, (unknown) (no (unknown) (unknown) Allergy/AdvReac (units (unknown) date) Type Severity unknown) Reaction Status Date / Time (unknown) (no (unknown) (unknown) Anginal pain (units (u nknown) date) unknown) (unknown) (no (unknown) (unknown) Ankle X-Ray (units (un known) date) (Signed) unknown) (unknown) (no (unknown) (unknown) Antibiotics) (units (u nknown) date) unknown) (unknown) (no (unknown) (unknown) Approved by: (units (u nknown) date) Maxim Valadez, unknown) M.D. on 12/07/2021 at 21:44 ? (unknown) (no (unknown) (unknown) Approved by: (units (u nknown) date) Maxim Valadez, unknown) M.DTram on 12/07/2021 at 21:48 ? (unknown) (no (unknown) (unknown) Asthma (units (unkno wn) date) unknown) (unknown) (no (unknown) (unknown) Atrial (units (unkno wn) date) fibrillation unknown) (unknown) (no (unknown) (unknown) BACK: Nontender (units (unknown) date) without deformity unknown) or crepitance. No flank tenderness. (unknown) (no (unknown) (unknown) BUN (9-20) (units (unknown) date) mg/dL unknown) (unknown) (no (unknown) (unknown) BUN (9-20) (units ( unknown) date) mg/dL unknown) (unknown) (no (unknown) (unknown) BUN 21 H (units (unk nown) date) (9-20) mg/dL unknown) (unknown) (no (unknown) (unknown) BUN/Creatinine (units (unknown) date) Ratio (6-22) unknown) (unknown) (no (unknown) (unknown) BUN/Creatinine (units (unknown) date) Ratio (6-22) unknown) (unknown) (no (unknown) (unknown) BUN/Creatinine (units (unknown) date) Ratio 23.9 H unknown) (6-22) (unknown) (no (unknown) (unknown) Baso # (Auto) (units ( unknown) date) (0-100) /uL unknown) (unknown) (no (unknown) (unknown) Baso # (Auto) (units ( unknown) date) (0-100) /uL unknown) (unknown) (no (unknown) (unknown) Baso # (Auto) 100 (units (unknown) date) (0-100) /uL unknown) (unknown) (no (unknown) (unknown) Baso % (Auto) (units ( unknown) date) (0-2) % unknown) (unknown) (no (unknown) (unknown) Baso % (Auto) (units ( unknown) date) (0-2) % unknown) (unknown) (no (unknown) (unknown) Baso % (Auto) 0.8 (units (unknown) date) (0-2) % unknown) (unknown) (no (unknown) (unknown) Blood Culture Stat (units (unknown) date) unknown) (unknown) (no (unknown) (unknown) Blood Pressure (units (unknown) date) 159/98 H 12/07/21 unknown) 20:23 (unknown) (no (unknown) (unknown) Blood Pressure (units (unknown) date) 207/103 H 207/103 H unknown) (unknown) (no (unknown) (unknown) Bones:? No (units (unk nown) date) fractures or unknown) subluxation.? There is anterolisthesis at C2-C3 (unknown) (no (unknown) (unknown) Brain MRI (Signed) (units (unknown) date) unknown) (unknown) (no (unknown) (unknown) Brain:? No (units (unkn own) date) intracranial unknown) hemorrhage, mass, or mass effect.? The adams-white matter (unknown) (no (unknown) (unknown) C4-C5 and C7-T1.? (units (unknown) date) There is also unknown) fusion at C5-C6 and C6-C7.? There is mild to (unknown) (no (unknown) (unknown) CARDIOVASCULAR: (units (unknown) date) Denies chest pain, unknown) palpitations, orthopnea, edema, (unknown) (no (unknown) (unknown) CARDIOVASCULAR: (units (unknown) date) Regular rate and unknown) rhythm without murmurs, gallops, or rubs. (unknown) (no (unknown) (unknown) COMPARISON:? (units (u nknown) date) [facility], unknown) CT, CT CERVICAL SPINE WO CON, 04/16/2021, 12:21. (unknown) (no (unknown) (unknown) COMPARISON:? (units (u nknown) date) [facility], unknown) CT, CT HEAD/BRAIN WO CON, 04/16/2021, 12:21. (unknown) (no (unknown) (unknown) COPD (chronic (units ( unknown) date) obstructive unknown) pulmonary disease) (unknown) (no (unknown) (unknown) COVID19 -Nasal (units (unknown) date) RAPID/Pre-Proc Stat unknown) (unknown) (no (unknown) (unknown) CSF spaces:? Basal (units (unknown) date) cisterns are unknown) patent.? The ventricles are symmetric in size (unknown) (no (unknown) (unknown) CT - cervical (units ( unknown) date) spine: unknown) (unknown) (no (unknown) (unknown) CT lumbar spine wo (units (unknown) date) con Stat unknown) (unknown) (no (unknown) (unknown) CT scan - head: (units (unknown) date) unknown) (unknown) (no (unknown) (unknown) Calcium (units (unkno wn) date) (8.4-10.2) mg/dL unknown) (unknown) (no (unknown) (unknown) Calcium (units (unkno wn) date) (8.4-10.2) mg/dL unknown) (unknown) (no (unknown) (unknown) Calcium 8.4 (units ( unknown) date) (8.4-10.2) mg/dL unknown) (unknown) (no (unknown) (unknown) Call,Francisco J (units (unk nown) date) unknown) (unknown) (no (unknown) (unknown) Carbon Dioxide (units (unknown) date) (22-32) mmol/L unknown) (unknown) (no (unknown) (unknown) Carbon Dioxide (units (unknown) date) (22-32) mmol/L unknown) (unknown) (no (unknown) (unknown) Carbon Dioxide (units (unknown) date) 27 (22-32) unknown) mmol/L (unknown) (no (unknown) (unknown) Cervical Spine CT (units (unknown) date) (Signed) unknown) (unknown) (no (unknown) (unknown) Cervical spinal (units (unknown) date) stenosis unknown) (unknown) (no (unknown) (unknown) Chest CTA (Signed) (units (unknown) date) unknown) (unknown) (no (unknown) (unknown) Chest X-Ray (units (un known) date) (Signed) unknown) (unknown) (no (unknown) (unknown) Chest/Abdomen/Pelv (units (unknown) date) is CTA (Signed) unknown) (unknown) (no (unknown) (unknown) Chief Complaint: (units (unknown) date) Trauma unknown) (unknown) (no (unknown) (unknown) Chloride (units (unkno wn) date) (98-107) mmol/L unknown) (unknown) (no (unknown) (unknown) Chloride (units (unkno wn) date) (98-107) mmol/L unknown) (unknown) (no (unknown) (unknown) Chloride 104 (units (unknown) date) (98-107) mmol/L unknown) (unknown) (no (unknown) (unknown) 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 (10/22/16) (unknown) (no (unknown) (unknown) Zeina Saavedra (units (u nknown) date) unknown) (unknown) (no (unknown) (unknown) Complete Blood (units (unknown) date) Count AUTO DIFF unknown) Stat (unknown) (no (unknown) (unknown) Comprehensive (units ( unknown) date) Metabolic Panel unknown) Stat (unknown) (no (unknown) (unknown) Coronary artery (units (unknown) date) disease unknown) (unknown) (no (unknown) (unknown) Course (units (unkno wn) date) unknown) (unknown) (no (unknown) (unknown) Creatinine (units (unk nown) date) (0.66-1.25) mg/dL unknown) (unknown) (no (unknown) (unknown) Creatinine (units (unk nown) date) (0.66-1.25) mg/dL unknown) (unknown) (no (unknown) (unknown) Creatinine 0.88 (units (unknown) date) (0.66-1.25) mg/dL unknown) (unknown) (no (unknown) (unknown) : 1945 (units (unknown) date) Acct:[id number] unknown) (unknown) (no (unknown) (unknown) : 1945 (units (unknown) date) unknown) (unknown) (no (unknown) (unknown) Kimmy Gomez MD (units (unknown) date) [Primary Care unknown) Provider] - (unknown) (no (unknown) (unknown) Date of Service: (units (unknown) date) 12/07/21 unknown) (unknown) (no (unknown) (unknown) Departure (units (unkn own) date) unknown) (unknown) (no (unknown) (unknown) Inder Farley (units (u nknown) date) unknown) (unknown) (no (unknown) (unknown) Dictated by: (units (u nknown) date) Maxim Valadez, unknown) Clifford on 12/07/2021 at 21:42 ? ? (unknown) (no (unknown) (unknown) Dictated by: (units (u nknown) date) mohamud Monsivais M.D. on 12/07/2021 at 21:44 ? ? (unknown) (no (unknown) (unknown) Discharge Plan (units (unknown) date) unknown) (unknown) (no (unknown) (unknown) Discontinued (units (u nknown) date) Medications unknown) (unknown) (no (unknown) (unknown) ENT: Nose without (units (unknown) date) bleeding, purulent unknown) drainage. No nasal septal hematoma Throat (unknown) (no (unknown) (unknown) ER Physician: (units ( unknown) date) Jung Dejesus D.O. unknown) (unknown) (no (unknown) (unknown) EXTREMITIES: No (units (unknown) date) edema or joint unknown) tenderness. (unknown) (no (unknown) (unknown) EYES: Pupils equal (units (unknown) date) round and reactive. unknown) No hyphema Extraocular motions intact. (unknown) (no (unknown) (unknown) Echocardiogram (units (unknown) date) Ultrasound (Signed) unknown) (unknown) (no (unknown) (unknown) Eos # (Auto) (units (u nknown) date) (0-450) /uL unknown) (unknown) (no (unknown) (unknown) Eos # (Auto) (units (u nknown) date) (0-450) /uL unknown) (unknown) (no (unknown) (unknown) Eos # (Auto) 100 (units (unknown) date) (0-450) /uL unknown) (unknown) (no (unknown) (unknown) Eos % (Auto) (units (u nknown) date) (2-4) % unknown) (unknown) (no (unknown) (unknown) Eos % (Auto) (units (u nknown) date) (2-4) % unknown) (unknown) (no (unknown) (unknown) Eos % (Auto) 2.0 (units (unknown) date) (2-4) % unknown) (unknown) (no (unknown) (unknown) Estimated GFR (units ( unknown) date) (>60) mL/min unknown) (unknown) (no (unknown) (unknown) Estimated GFR (units ( unknown) date) (>60) mL/min unknown) (unknown) (no (unknown) (unknown) Estimated GFR > (units (unknown) date) 60 (>60) mL/min unknown) (unknown) (no (unknown) (unknown) Ethanol (ETOH) (units (unknown) date) Stat unknown) (unknown) (no (unknown) (unknown) Ethyl Alcohol ( (units (unknown) date) - 10) mg/dL unknown) (unknown) (no (unknown) (unknown) Ethyl Alcohol ( (units (unknown) date) - 10) mg/dL unknown) (unknown) (no (unknown) (unknown) Ethyl Alcohol (units ( unknown) date) 111 H ( - 10) unknown) mg/dL (unknown) (no (unknown) (unknown) Exam (units (unkno wn) date) unknown) (unknown) (no (unknown) (unknown) Exam Narrative: (units (unknown) date) unknown) (unknown) (no (unknown) (unknown) FINDINGS:? (units (unk nown) date) unknown) (unknown) (no (unknown) (unknown) Family History (units (unknown) date) (Reviewed 12/08/21 unknown) @ 01:57 by Jung Dejesus DO) (unknown) (no (unknown) (unknown) Foot X-Ray (units (unk nown) date) (Signed) unknown) (unknown) (no (unknown) (unknown) GASTROINTESTINAL: (units (unknown) date) Abdomen soft, unknown) non-tender, nondistended. (unknown) (no (unknown) (unknown) GASTROINTESTINAL: (units (unknown) date) Denies nausea, unknown) vomiting, abdominal pain, diarrhea, (unknown) (no (unknown) (unknown) GENERAL: Denies (units (unknown) date) chills, fatigue, unknown) malaise, fever, sweats. (unknown) (no (unknown) (unknown) GENERAL: [76 year (units (unknown) date) old patient appears unknown) stated age. Well-developed patient, in (unknown) (no (unknown) (unknown) : Denies (units (unk nown) date) dysuria, frequency, unknown) incontinence, hematuria, urinary retention. (unknown) (no (unknown) (unknown) General (units (unkno wn) date) unknown) (unknown) (no (unknown) (unknown) GenericComposite[P (units (unknown) date) lt Count unknown) (150-400) X10^3/uL ] (unknown) (no (unknown) (unknown) GenericComposite[P (units (unknown) date) lt Count unknown) (150-400) X10^3/uL ] (unknown) (no (unknown) (unknown) GenericComposite[P (units (unknown) date) lt Count 241 unknown) (150-400) X10^3/uL ] (unknown) (no (unknown) (unknown) GenericComposite[R (units (unknown) date) BC (4.5-5.9) unknown) X10^6/uL ] (unknown) (no (unknown) (unknown) GenericComposite[R (units (unknown) date) BC (4.5-5.9) unknown) X10^6/uL ] (unknown) (no (unknown) (unknown) GenericComposite[R (units (unknown) date) BC 4.93 unknown) (4.5-5.9) X10^6/uL ] (unknown) (no (unknown) (unknown) GenericComposite[W (units (unknown) date) BC (4.5-11.0) unknown) X10^3/uL ] (unknown) (no (unknown) (unknown) GenericComposite[W (units (unknown) date) BC (4.5-11.0) unknown) X10^3/uL ] (unknown) (no (unknown) (unknown) GenericComposite[W (units (unknown) date) BC 7.4 unknown) (4.5-11.0) X10^3/uL ] (unknown) (no (unknown) (unknown) Globulin (units (unkno wn) date) (1.7-4.1) g/dL unknown) (unknown) (no (unknown) (unknown) Globulin (units (unkno wn) date) (1.7-4.1) g/dL unknown) (unknown) (no (unknown) (unknown) Globulin 2.9 (units (unknown) date) (1.7-4.1) g/dL unknown) (unknown) (no (unknown) (unknown) Glucose (units (unkno wn) date) (80-110) mg/dL unknown) (unknown) (no (unknown) (unknown) Glucose (units (unkno wn) date) (80-110) mg/dL unknown) (unknown) (no (unknown) (unknown) Glucose 124 H (units (unknown) date) (80-110) mg/dL unknown) (unknown) (no (unknown) (unknown) Glucose POC 118 (units (unknown) date) unknown) (unknown) (no (unknown) (unknown) H/O arthroscopic (units (unknown) date) knee surgery unknown) (11/14/17) (unknown) (no (unknown) (unknown) HEAD: Superficial (units (unknown) date) abrasion on the unknown) bridge of his nose, no other obvious (unknown) (no (unknown) (unknown) HEENT: See HPI (units (unknown) date) unknown) (unknown) (no (unknown) (unknown) HPI - Fall (units (unk nown) date) unknown) (unknown) (no (unknown) (unknown) HPI Narrative: (units (unknown) date) unknown) (unknown) (no (unknown) (unknown) Hand X-Ray (units (unk nown) date) (Signed) unknown) (unknown) (no (unknown) (unknown) Jean Oneill (units (unknown) date) unknown) (unknown) (no (unknown) (unknown) Hct (41-53) % (units (unknown) date) unknown) (unknown) (no (unknown) (unknown) Hct (41-53) % (units (unknown) date) unknown) (unknown) (no (unknown) (unknown) Hct 46.0 (units (unkn own) date) (41-53) % unknown) (unknown) (no (unknown) (unknown) Head CT (Signed) (units (unknown) date) unknown) (unknown) (no (unknown) (unknown) Head/Neck CTA (units ( unknown) date) (Signed) unknown) (unknown) (no (unknown) (unknown) Hgb (units (unkno wn) date) (13.5-17.5) g/dL unknown) (unknown) (no (unknown) (unknown) Hgb (13.5-17.5) (units (unknown) date) g/dL unknown) (unknown) (no (unknown) (unknown) Hgb 15.6 (units (unkn own) date) (13.5-17.5) g/dL unknown) (unknown) (no (unknown) (unknown) History of Present (units (unknown) date) Illness unknown) (unknown) (no (unknown) (unknown) History of aortic (units (unknown) date) dissection unknown) () (unknown) (no (unknown) (unknown) History of (units (unk nown) date) arthroplasty of unknown) right knee (unknown) (no (unknown) (unknown) 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 (unknown) (no (unknown) (unknown) History of cardiac (units (unknown) date) cath () unknown) (unknown) (no (unknown) (unknown) History of (units (unk nown) date) esophageal surgery unknown) (unknown) (no (unknown) (unknown) History of (units (unk nown) date) incision and unknown) drainage (-2016) (unknown) (no (unknown) (unknown) History of prior (units (unknown) date) ablation treatment unknown) () (unknown) (no (unknown) (unknown) History of surgery (units (unknown) date) unknown) (unknown) (no (unknown) (unknown) Vidal,Ronni (units (unk nown) date) unknown) (unknown) (no (unknown) (unknown) Hx of (units (unkno wn) date) cholecystectomy unknown) (unknown) (no (unknown) (unknown) Hx of hernia (units (u nknown) date) repair unknown) (unknown) (no (unknown) (unknown) Hx of sinus (units (un known) date) surgery unknown) (unknown) (no (unknown) (unknown) Hydromorphone HCl (units (unknown) date) (Hydromorphone 0.5 unknown) Mg Inj) 0.5 mg IV NOW ONE (unknown) (no (unknown) (unknown) Hypertension (units (u nknown) date) unknown) (unknown) (no (unknown) (unknown) IMPRESSION:? (units (u nknown) date) unknown) (unknown) (no (unknown) (unknown) INDICATIONS:? (units ( unknown) date) trauma unknown) (unknown) (no (unknown) (unknown) INHIBITOR] (units (unk nown) date) unknown) (unknown) (no (unknown) (unknown) Image quality:? (units (unknown) date) Excellent.? unknown) (unknown) (no (unknown) (unknown) Image quality:? (units (unknown) date) There is motion unknown) artifact limiting evaluation.? (unknown) (no (unknown) (unknown) Imaging Data (units (u nknown) date) unknown) (unknown) (no (unknown) (unknown) Inhibitor (units (unkn own) date) MUSCLES unknown) (unknown) (no (unknown) (unknown) Initial Vital (units ( unknown) date) Signs unknown) (unknown) (no (unknown) (unknown) Initial Vital (units ( unknown) date) Signs: unknown) (unknown) (no (unknown) (unknown) Ischemic (units (unkno wn) date) cardiomyopathy unknown) (unknown) (no (unknown) (unknown) Theodore,Exmore (units (unknown) date) unknown) (unknown) (no (unknown) (unknown) Ashley,Bharath (units ( unknown) date) unknown) (unknown) (no (unknown) (unknown) Knee X-Ray (units (unk n) date) (Signed) unknown) (unknown) (no (unknown) (unknown) Lab Data (units (o wn) date) unknown) (unknown) (no (unknown) (unknown) Labs: (units (unkno wn) date) unknown) (unknown) (no (unknown) (unknown) Lactate (units (o wn) date) (0.7-2.1) mmol/L unknown) (unknown) (no (unknown) (unknown) Lactate 2.3 H (units (unknown) date) (0.7-2.1) mmol/L unknown) (unknown) (no (unknown) (unknown) Lactate 1.5 (units ( unknown) date) (0.7-2.1) mmol/L unknown) (unknown) (no (unknown) (unknown) Lactate (Lactic (units (unknown) date) Acid) Stat unknown) (unknown) (no (unknown) (unknown) Lisinopril (units (n) date) (Lisinopril 20 Mg unknown) Tablet) 20 mg PO NOW ONE (unknown) (no (unknown) (unknown) KolbySatish (units (o wn) date) unknown) (unknown) (no (unknown) (unknown) Loc: ED (units (o wn) date) unknown) (unknown) (no (unknown) (unknown) Lumbar Spine MRI (units (unknown) date) (Signed) unknown) (unknown) (no (unknown) (unknown) Lymph # (Auto) (units (unknown) date) (3795-9907) /uL unknown) (unknown) (no (unknown) (unknown) Lymph # (Auto) (units (unknown) date) (7344-8924) /uL unknown) (unknown) (no (unknown) (unknown) Lymph # (Auto) (units (unknown) date) 1700 (4334-5181) unknown) /uL (unknown) (no (unknown) (unknown) Lymph % (Auto) (units (unknown) date) (25-40) % unknown) (unknown) (no (unknown) (unknown) Lymph % (Auto) (units (unknown) date) (25-40) % unknown) (unknown) (no (unknown) (unknown) Lymph % (Auto) (units (unknown) date) 23.0 L (25-40) unknown) % (unknown) (no (unknown) (unknown) MCH (26-34) (units (unknown) date) PG unknown) (unknown) (no (unknown) (unknown) MCH (26-34) PG (units (unknown) date) unknown) (unknown) (no (unknown) (unknown) MCH 31.7 (units (unkn own) date) (26-34) PG unknown) (unknown) (no (unknown) (unknown) MCHC (30-36) (units (unknown) date) % unknown) (unknown) (no (unknown) (unknown) MCHC (30-36) % (units (unknown) date) unknown) (unknown) (no (unknown) (unknown) MCHC 34.0 (units (unk nown) date) (30-36) % unknown) (unknown) (no (unknown) (unknown) MCV (80-100) (units (unknown) date) fL unknown) (unknown) (no (unknown) (unknown) MCV (80-100) (units (unknown) date) fL unknown) (unknown) (no (unknown) (unknown) MCV 93.3 (units (unkn own) date) (80-100) fL unknown) (unknown) (no (unknown) (unknown) MDM - Fall (units (unk nown) date) unknown) (unknown) (no (unknown) (unknown) MR#: [id number] (units (unknown) date) unknown) (unknown) (no (unknown) (unknown) MUSCULOSKELETAL: (units (unknown) date) See HPI unknown) (unknown) (no (unknown) (unknown) Medical History (units (unknown) date) (Reviewed 12/08/21 unknown) @ 01:57 by Jung Dejesus DO) (unknown) (no (unknown) (unknown) Cheryl Husain (units (unknown) date) unknown) (unknown) (no (unknown) (unknown) Metoprolol (units (unk nown) date) Tartrate unknown) (Metoprolol Ir 25 Mg Tablet) 100 mg PO NOW ONE (unknown) (no (unknown) (unknown) Mode of arrival: (units (unknown) date) EMS unknown) (unknown) (no (unknown) (unknown) [place] # (Auto) (units ( unknown) date) (0-900) /uL unknown) (unknown) (no (unknown) (unknown) [place] # (Auto) (units ( unknown) date) (0-900) /uL unknown) (unknown) (no (unknown) (unknown) [place] # (Auto) 700 (units (unknown) date) (0-900) /uL unknown) (unknown) (no (unknown) (unknown) [place] % (Auto) (units ( unknown) date) (3-14) % unknown) (unknown) (no (unknown) (unknown) [place] % (Auto) (units ( unknown) date) (3-14) % unknown) (unknown) (no (unknown) (unknown) [place] % (Auto) 9.5 (units (unknown) date) (3-14) % unknown) (unknown) (no (unknown) (unknown) Mother (units (unknown) date) Stroke unknown) (unknown) (no (unknown) (unknown) NECK: Trachea (units ( unknown) date) midline. Non tender unknown) (unknown) (no (unknown) (unknown) NEURO: Cranial (units (unknown) date) nerves 2-12 grossly unknown) intact (unknown) (no (unknown) (unknown) NEUROLOGIC: Denies (units (unknown) date) weakness, headache, unknown) numbness, change in speech, confusion, (unknown) (no (unknown) (unknown) NOW ONE (units (unkno wn) date) unknown) (unknown) (no (unknown) (unknown) Narcotic (units (unkno wn) date) dependence unknown) (unknown) (no (unknown) (unknown) Narrative (units (unkn own) date) unknown) (unknown) (no (unknown) (unknown) Narrative: (units (unk nown) date) unknown) (unknown) (no (unknown) (unknown) Neck pain, chronic (units (unknown) date) unknown) (unknown) (no (unknown) (unknown) Neut # (Auto) (units ( unknown) date) (8450-0741) /uL unknown) (unknown) (no (unknown) (unknown) Neut # (Auto) (units ( unknown) date) (5415-2955) /uL unknown) (unknown) (no (unknown) (unknown) Neut # (Auto) (units ( unknown) date) 4800 (7188-4785) unknown) /uL (unknown) (no (unknown) (unknown) Neut % (Auto) (units ( unknown) date) (50-75) % unknown) (unknown) (no (unknown) (unknown) Neut % (Auto) (units ( unknown) date) (50-75) % unknown) (unknown) (no (unknown) (unknown) Neut % (Auto) (units ( unknown) date) 64.7 (50-75) % unknown) (unknown) (no (unknown) (unknown) No Action (units (unkn own) date) unknown) (unknown) (no (unknown) (unknown) No scleral (units (unk nown) date) icterus. No unknown) injection or drainage. (unknown) (no (unknown) (unknown) Noncontrast 3 mm (units (unknown) date) thick sections unknown) acquired from the skull base to the T4 level.? (unknown) (no (unknown) (unknown) Noncontrast 4.5 mm (units (unknown) date) thick angled axial unknown) sections acquired from the foramen magnum (unknown) (no (unknown) (unknown) Ondansetron HCl (units (unknown) date) (Ondansetron 4 Mg/2 unknown) Ml Inj) 4 mg IV NOW ONE (unknown) (no (unknown) (unknown) Ordered: (units (unkno wn) date) unknown) (unknown) (no (unknown) (unknown) Ordering Provider: (units (unknown) date) Jung Dejesus D.O. unknown) (unknown) (no (unknown) (unknown) Orders (units (unkno wn) date) unknown) (unknown) (no (unknown) (unknown) PROCEDURE:? CT (units (unknown) date) CERVICAL SPINE WO unknown) CON (unknown) (no (unknown) (unknown) PROCEDURE:? CT (units (unknown) date) HEAD/BRAIN WO CON unknown) (unknown) (no (unknown) (unknown) PSYCHIATRIC: No (units (unknown) date) concerning unknown) psychosocial issues. (unknown) (no (unknown) (unknown) Pantoprazole (units (u nknown) date) Sodium unknown) (Pantoprazole 40 Mg Vial) 40 mg IV NOW ONE (unknown) (no (unknown) (unknown) Patient History (units (unknown) date) unknown) (unknown) (no (unknown) (unknown) Patient getting (units (unknown) date) shaky, sweaty, unknown) tachycardic, HTN, sweaty, and developing N/V/D. (unknown) (no (unknown) (unknown) Patient observed (units (unknown) date) for some time unknown) before labs added. He has continued to have a (unknown) (no (unknown) (unknown) Patient: (units (unkno wn) date) Dominic Viveros unknown) MR#: M (unknown) (no (unknown) (unknown) Patient: (units (unkno wn) date) Dominic Viveros unknown) (unknown) (no (unknown) (unknown) Maxim Valadez (units (un known) date) unknown) (unknown) (no (unknown) (unknown) Phenobarbital (units ( unknown) date) (Phenobarbital 65 unknown) Mg/Ml Vial) 260 mg IV NOW ONE (unknown) (no (unknown) (unknown) Potassium (units (unkn own) date) (3.4-5.1) mmol/L unknown) (unknown) (no (unknown) (unknown) Potassium (units (unkn own) date) (3.4-5.1) mmol/L unknown) (unknown) (no (unknown) (unknown) Potassium 4.5 (units (unknown) date) (3.4-5.1) mmol/L unknown) (unknown) (no (unknown) (unknown) Prescriptions: (units (unknown) date) unknown) (unknown) (no (unknown) (unknown) Procedure: CT (units ( unknown) date) cervical spine wo unknown) con (unknown) (no (unknown) (unknown) Procedure: CT (units ( unknown) date) head/brain wo con unknown) (unknown) (no (unknown) (unknown) Prolactin (units (unkn own) date) (3.7-17.9) ng/mL unknown) (unknown) (no (unknown) (unknown) Prolactin (units (unkn own) date) (3.7-17.9) ng/mL unknown) (unknown) (no (unknown) (unknown) Prolactin 18.9 H (units (unknown) date) (3.7-17.9) ng/mL unknown) (unknown) (no (unknown) (unknown) Prolactin Stat (units (unknown) date) unknown) (unknown) (no (unknown) (unknown) Pulse Oximetry 92 (units (unknown) date) 12/07/21 20:23 unknown) (unknown) (no (unknown) (unknown) Pulse Oximetry 91 (units (unknown) date) 96 unknown) (unknown) (no (unknown) (unknown) Pulse Rate 88 (units (unknown) date) 12/07/21 20:23 unknown) (unknown) (no (unknown) (unknown) Pulse Rate 85 67 (units (unknown) date) unknown) (unknown) (no (unknown) (unknown) RDW (units (unkno wn) date) (11.6-14.8) % unknown) (unknown) (no (unknown) (unknown) RDW (11.6-14.8) (units (unknown) date) % unknown) (unknown) (no (unknown) (unknown) RDW 13.7 (units (unkn own) date) (11.6-14.8) % unknown) (unknown) (no (unknown) (unknown) RESPIRATORY: Clear (units (unknown) date) to auscultation. unknown) Breath sounds equal bilaterally. No wheezes, (unknown) (no (unknown) (unknown) RESPIRATORY: (units (u nknown) date) Denies dyspnea, unknown) cough, wheezing, hemoptysis, sputum. (unknown) (no (unknown) (unknown) Dominic Viveros (units (unknown) date) D??76??M?? unknown) 5 (unknown) (no (unknown) (unknown) Reevaluation #1: (units (unknown) date) unknown) (unknown) (no (unknown) (unknown) Reevaluation #2: (units (unknown) date) unknown) (unknown) (no (unknown) (unknown) Reevaluation(s) (units (unknown) date) unknown) (unknown) (no (unknown) (unknown) Referrals: (units (unk nown) date) unknown) (unknown) (no (unknown) (unknown) Related Data (units (u nknown) date) unknown) (unknown) (no (unknown) (unknown) Respiratory Rate (units (unknown) date) 17 unknown) (unknown) (no (unknown) (unknown) Respiratory Rate (units (unknown) date) 12/07/21 20:23 unknown) (unknown) (no (unknown) (unknown) Result diagrams: (units (unknown) date) unknown) (unknown) (no (unknown) (unknown) Review of Systems (units (unknown) date) unknown) (unknown) (no (unknown) (unknown) Emeka Robertson (units (unknown) date) unknown) (unknown) (no (unknown) (unknown) Sudarshan Calderon (units (u nknown) date) unknown) (unknown) (no (unknown) (unknown) S/P CABG x 3 (units (u nknown) date) () unknown) (unknown) (no (unknown) (unknown) S/P cervical (units (u nknown) date) spinal fusion unknown) (unknown) (no (unknown) (unknown) S/P lumbar fusion (units (unknown) date) unknown) (unknown) (no (unknown) (unknown) SARS-CoV-2 (PCR) (units (unknown) date) (Negative) unknown) (unknown) (no (unknown) (unknown) SARS-CoV-2 (PCR) (units (unknown) date) (Negative) unknown) (unknown) (no (unknown) (unknown) SARS-CoV-2 (PCR) (units (unknown) date) Negative unknown) (Negative) (unknown) (no (unknown) (unknown) SKIN: Denies rash, (units (unknown) date) skin lesions, or unknown) other (unknown) (no (unknown) (unknown) SKIN: No rash or (units (unknown) date) erythema of visible unknown) areas (unknown) (no (unknown) (unknown) Sagittal (units (unkno wn) date) unknown) (unknown) (no (unknown) (unknown) Salicylate Stat (units (unknown) date) unknown) (unknown) (no (unknown) (unknown) Salicylates (units (un known) date) (<20) mg/dL unknown) (unknown) (no (unknown) (unknown) Salicylates (units (un known) date) (<20) mg/dL unknown) (unknown) (no (unknown) (unknown) Salicylates < (units (unknown) date) 1.0 (<20) mg/dL unknown) (unknown) (no (unknown) (unknown) Signed By: (units (unk nown) date) unknown) (unknown) (no (unknown) (unknown) Sinuses:? (units (unkn own) date) Visualized sinuses unknown) redemonstrate wall thickening and mucoperiosteal (unknown) (no (unknown) (unknown) Skull and face:? (units (unknown) date) Calvarium and unknown) visualized facial bones appear intact, without (unknown) (no (unknown) (unknown) Smoking Status: (units (unknown) date) Former smoker unknown) (unknown) (no (unknown) (unknown) Smoking Status: (units (unknown) date) Former smoker unknown) (unknown) (no (unknown) (unknown) Social History (units (unknown) date) (Reviewed 12/08/21 unknown) @ 01:57 by Jung Dejesus DO) (unknown) (no (unknown) (unknown) Sodium (units (unkno wn) date) (137-145) mmol/L unknown) (unknown) (no (unknown) (unknown) Sodium (units (unkno wn) date) (137-145) mmol/L unknown) (unknown) (no (unknown) (unknown) Sodium 140 (units (u nknown) date) (137-145) mmol/L unknown) (unknown) (no (unknown) (unknown) Sodium Chloride (units (unknown) date) (Normal Saline unknown) 0.9%) 1,000 mls @ 150 mls/hr IV CONT BLOSSOM (unknown) (no (unknown) (unknown) Soft tissues:? (units (unknown) date) Prevertebral soft unknown) tissues are normal in thickness.? No (unknown) (no (unknown) (unknown) Source: patient, (units (unknown) date) family and EMS unknown) (unknown) (no (unknown) (unknown) Stated Complaint: (units (unknown) date) Back Pain unknown) (unknown) (no (unknown) (unknown) [id number] (units (unknown) date) Reductase AdvReac unknown) Mild WEAK Verified 11/28/21 15:33 (unknown) (no (unknown) (unknown) Strong concern (units (unknown) date) that he is unknown) developing withdrawals though he denies frequent (unknown) (no (unknown) (unknown) Substance Use (units ( unknown) date) Type: does not use unknown) (unknown) (no (unknown) (unknown) Sulfa (Sulfonamide (units (unknown) date) Allergy Mild RASH unknown) Verified 11/28/21 15:33 (unknown) (no (unknown) (unknown) Surgical History (units (unknown) date) (Reviewed 12/08/21 unknown) @ 01:57 by Jung Dejesus DO) (unknown) (no (unknown) (unknown) Andre Spear (units ( unknown) date) unknown) (unknown) (no (unknown) (unknown) TECHNIQUE:? (units (un known) date) unknown) (unknown) (no (unknown) (unknown) TSH (units (unkno wn) date) (0.47-4.68) uIU/mL unknown) (unknown) (no (unknown) (unknown) TSH (0.47-4.68) (units (unknown) date) uIU/mL unknown) (unknown) (no (unknown) (unknown) TSH 2.07 (units (unkn own) date) (0.47-4.68) uIU/mL unknown) (unknown) (no (unknown) (unknown) Telemetry Strips (units (unknown) date) unknown) (unknown) (no (unknown) (unknown) Temperature 97.8 (units (unknown) date) F unknown) (unknown) (no (unknown) (unknown) Temperature 97.4 (units (unknown) date) F L 12/07/21 20:23 unknown) (unknown) (no (unknown) (unknown) There is a small (units (unknown) date) right choroidal unknown) fissure cyst redemonstrated.? (unknown) (no (unknown) (unknown) There is mild (units ( unknown) date) cerebral volume unknown) loss, with resultant ventricular and sulcal (unknown) (no (unknown) (unknown) Thyroid (units (unkno wn) date) Stimulating Hormone unknown) Stat (unknown) (no (unknown) (unknown) Tibia/Fibula X-Ray (units (unknown) date) (Signed) unknown) (unknown) (no (unknown) (unknown) Time Seen by (units (u nknown) date) Provider: 12/07/21 unknown) 20:22 (unknown) (no (unknown) (unknown) Time: 06:09 (units (un known) date) unknown) (unknown) (no (unknown) (unknown) Total Bilirubin (units (unknown) date) (0.2-1.3) mg/dL unknown) (unknown) (no (unknown) (unknown) Total Bilirubin (units (unknown) date) (0.2-1.3) mg/dL unknown) (unknown) (no (unknown) (unknown) Total Bilirubin (units (unknown) date) 0.9 (0.2-1.3) unknown) mg/dL (unknown) (no (unknown) (unknown) Total Protein (units ( unknown) date) (6.3-8.2) g/dL unknown) (unknown) (no (unknown) (unknown) Total Protein (units ( unknown) date) (6.3-8.2) g/dL unknown) (unknown) (no (unknown) (unknown) Total Protein (units ( unknown) date) 7.0 (6.3-8.2) unknown) g/dL (unknown) (no (unknown) (unknown) U Benzodiazepines (units (unknown) date) Scrn (Negative) unknown) (unknown) (no (unknown) (unknown) U Benzodiazepines (units (unknown) date) Scrn Positive H unknown) (Negative) (unknown) (no (unknown) (unknown) U Marijuana (THC) (units (unknown) date) Screen unknown) (Negative) (unknown) (no (unknown) (unknown) U Marijuana (THC) (units (unknown) date) Screen Negative unknown) (Negative) (unknown) (no (unknown) (unknown) U Methamphetamines (units (unknown) date) Scrn (Negative) unknown) (unknown) (no (unknown) (unknown) U Methamphetamines (units (unknown) date) Scrn Negative unknown) (Negative) (unknown) (no (unknown) (unknown) U Opiates 300ng/mL (units (unknown) date) cut (Negative) unknown) (unknown) (no (unknown) (unknown) U Opiates 300ng/mL (units (unknown) date) cut Positive H unknown) (Negative) (unknown) (no (unknown) (unknown) U Tricyclic (units (un known) date) Antidepress unknown) (Negative) (unknown) (no (unknown) (unknown) U Tricyclic (units (un known) date) Antidepress unknown) Negative (Negative) (unknown) (no (unknown) (unknown) Ur Amphetamines (units (unknown) date) Screen unknown) (Negative) (unknown) (no (unknown) (unknown) Ur Amphetamines (units (unknown) date) Screen Negative unknown) (Negative) (unknown) (no (unknown) (unknown) Ur Barbiturates (units (unknown) date) Screen unknown) (Negative) (unknown) (no (unknown) (unknown) Ur Barbiturates (units (unknown) date) Screen Negative unknown) (Negative) (unknown) (no (unknown) (unknown) Ur Culture (units (unk nown) date) Indicated? unknown) (unknown) (no (unknown) (unknown) Ur Culture (units (unk nown) date) Indicated? unknown) (unknown) (no (unknown) (unknown) Ur Culture (units (unk nown) date) Indicated? Cult unknown) not indicated (unknown) (no (unknown) (unknown) Ur Leukocyte (units (u nknown) date) Esterase unknown) (NEGATIVE) (unknown) (no (unknown) (unknown) Ur Leukocyte (units (u nknown) date) Esterase unknown) (NEGATIVE) (unknown) (no (unknown) (unknown) Ur Leukocyte (units (u nknown) date) Esterase unknown) Negative (NEGATIVE) (unknown) (no (unknown) (unknown) Ur MDMA Scrn (units (u nknown) date) (Ecstasy) unknown) (Negative) (unknown) (no (unknown) (unknown) Ur MDMA Scrn (units (u nknown) date) (Ecstasy) Negative unknown) (Negative) (unknown) (no (unknown) (unknown) Ur Oxycodone (units (u nknown) date) Screen unknown) (Negative) (unknown) (no (unknown) (unknown) Ur Oxycodone (units (u nknown) date) Screen Negative unknown) (Negative) (unknown) (no (unknown) (unknown) Ur Phencyclidine (units (unknown) date) Scrn (Negative) unknown) (unknown) (no (unknown) (unknown) Ur Phencyclidine (units (unknown) date) Scrn Negative unknown) (Negative) (unknown) (no (unknown) (unknown) Ur Specific (units (un known) date) Falcon unknown) (1.000-1.035) (unknown) (no (unknown) (unknown) Ur Specific (units (un known) date) Falcon unknown) (1.000-1.035) (unknown) (no (unknown) (unknown) Ur Specific (units (un known) date) Falcon 1.020 unknown) (1.000-1.035) (unknown) (no (unknown) (unknown) Ur Squamous Epith (units (unknown) date) Cells (0-5/HPF) unknown) (unknown) (no (unknown) (unknown) Ur Squamous Epith (units (unknown) date) Cells (0-5/HPF) unknown) (unknown) (no (unknown) (unknown) Ur Squamous Epith (units (unknown) date) Cells 0-1 /hpf unknown) (0-5/HPF) (unknown) (no (unknown) (unknown) Urinalysis and (units (unknown) date) Microscopic Stat unknown) (unknown) (no (unknown) (unknown) Urine Appearance (units (unknown) date) unknown) (unknown) (no (unknown) (unknown) Urine Appearance (units (unknown) date) unknown) (unknown) (no (unknown) (unknown) Urine Appearance (units (unknown) date) Clear unknown) (unknown) (no (unknown) (unknown) Urine Bacteria (units (unknown) date) (None) unknown) (unknown) (no (unknown) (unknown) Urine Bacteria (units (unknown) date) (None) unknown) (unknown) (no (unknown) (unknown) Urine Bacteria (units (unknown) date) None seen (None) unknown) (unknown) (no (unknown) (unknown) Urine Bilirubin (units (unknown) date) (NEGATIVE) unknown) (unknown) (no (unknown) (unknown) Urine Bilirubin (units (unknown) date) (NEGATIVE) unknown) (unknown) (no (unknown) (unknown) Urine Bilirubin (units (unknown) date) Negative unknown) (NEGATIVE) (unknown) (no (unknown) (unknown) Urine Cocaine (units ( unknown) date) Screen unknown) (Negative) (unknown) (no (unknown) (unknown) Urine Cocaine (units ( unknown) date) Screen Negative unknown) (Negative) (unknown) (no (unknown) (unknown) Urine Color (units (un known) date) unknown) (unknown) (no (unknown) (unknown) Urine Color (units (un known) date) unknown) (unknown) (no (unknown) (unknown) Urine Color (units (un known) date) Yellow unknown) (unknown) (no (unknown) (unknown) Urine Drug Screen, (units (unknown) date) Rapid Stat unknown) (unknown) (no (unknown) (unknown) Urine Glucose (UA) (units (unknown) date) (Negative) unknown) g/dL (unknown) (no (unknown) (unknown) Urine Glucose (UA) (units (unknown) date) (Negative) g/dL unknown) (unknown) (no (unknown) (unknown) Urine Glucose (UA) (units (unknown) date) Negative unknown) (Negative) g/dL (unknown) (no (unknown) (unknown) Urine Ketones (units ( unknown) date) (NEGATIVE) unknown) (unknown) (no (unknown) (unknown) Urine Ketones (units ( unknown) date) (NEGATIVE) unknown) (unknown) (no (unknown) (unknown) Urine Ketones (units ( unknown) date) Trace H (NEGATIVE) unknown) (unknown) (no (unknown) (unknown) Urine Methadone (units (unknown) date) Screen unknown) (Negative) (unknown) (no (unknown) (unknown) Urine Methadone (units (unknown) date) Screen Negative unknown) (Negative) (unknown) (no (unknown) (unknown) Urine Nitrate (units ( unknown) date) (Negative) unknown) (unknown) (no (unknown) (unknown) Urine Nitrate (units ( unknown) date) (Negative) unknown) (unknown) (no (unknown) (unknown) Urine Nitrate (units ( unknown) date) Negative unknown) (Negative) (unknown) (no (unknown) (unknown) Urine Occult Blood (units (unknown) date) (Negative) unknown) (unknown) (no (unknown) (unknown) Urine Occult Blood (units (unknown) date) (Negative) unknown) (unknown) (no (unknown) (unknown) Urine Occult Blood (units (unknown) date) Negative unknown) (Negative) (unknown) (no (unknown) (unknown) Urine Protein (units ( unknown) date) (Negative) unknown) (unknown) (no (unknown) (unknown) Urine Protein (units ( unknown) date) (Negative) unknown) (unknown) (no (unknown) (unknown) Urine Protein (units ( unknown) date) Negative unknown) (Negative) (unknown) (no (unknown) (unknown) Urine RBC (units (unkn own) date) (0-5/HPF) unknown) (unknown) (no (unknown) (unknown) Urine RBC (units (unkn own) date) (0-5/HPF) unknown) (unknown) (no (unknown) (unknown) Urine RBC None (units (unknown) date) seen (0-5/HPF) unknown) (unknown) (no (unknown) (unknown) Urine Urobilinogen (units (unknown) date) (0.2) E.U./dL unknown) (unknown) (no (unknown) (unknown) Urine Urobilinogen (units (unknown) date) (0.2) E.U./dL unknown) (unknown) (no (unknown) (unknown) Urine Urobilinogen (units (unknown) date) 0.2 (0.2) unknown) E.U./dL (unknown) (no (unknown) (unknown) Urine WBC (units (unkn own) date) (0-5/HPF) unknown) (unknown) (no (unknown) (unknown) Urine WBC (units (unkn own) date) (0-5/HPF) unknown) (unknown) (no (unknown) (unknown) Urine WBC None (units (unknown) date) seen (0-5/HPF) unknown) (unknown) (no (unknown) (unknown) Urine pH (units (unkno wn) date) (4.5-8.0) unknown) (unknown) (no (unknown) (unknown) Urine pH (units (unkno wn) date) (4.5-8.0) unknown) (unknown) (no (unknown) (unknown) Urine pH 5.0 (units (unknown) date) (4.5-8.0) unknown) (unknown) (no (unknown) (unknown) Vascular (units (unkno wn) date) Ultrasound (Signed) unknown) (unknown) (no (unknown) (unknown) Ventricular (units (un known) date) bigeminy unknown) (unknown) (no (unknown) (unknown) Vital Signs (units (un known) date) unknown) (unknown) (no (unknown) (unknown) Vital signs: (units (u nknown) date) unknown) (unknown) (no (unknown) (unknown) Charles,Lexx (units (u nknown) date) unknown) (unknown) (no (unknown) (unknown) [Embedded Image (units (unknown) date) Not Available] unknown) (unknown) (no (unknown) (unknown) [[id number] (units (unknown) date) REDUCTASE unknown) (unknown) (no (unknown) (unknown) [SULFA (units (unkno wn) date) (SULFONAMIDE unknown) (unknown) (no (unknown) (unknown) acetaminophen 300 (units (unknown) date) mg-codeine 30 mg 1 unknown) tab PO Q6HR PRN 10/08/21 10/08/21 (unknown) (no (unknown) (unknown) acetaminophen 325 (units (unknown) date) mg tablet 650 mg PO unknown) Q6H PRN #60 tab 11/06/20 (unknown) (no (unknown) (unknown) albuterol sulfate (units (unknown) date) 1.25 mg/3 mL 2.5 mg unknown) (6 mL) INHALATION QID #90 ml 11/28/21 (unknown) (no (unknown) (unknown) alcohol intake (units (unknown) date) frequency: unknown) holidays/special occasions only (unknown) (no (unknown) (unknown) alcohol intake: (units (unknown) date) current unknown) (unknown) (no (unknown) (unknown) and coronal (units (un known) date) reformats were then unknown) constructed.? For radiation dose reduction, the (unknown) (no (unknown) (unknown) and shape.? (units (un known) date) unknown) (unknown) (no (unknown) (unknown) appears (units (unkno wn) date) preserved.? There unknown) is intracranial internal carotid artery (unknown) (no (unknown) (unknown) approximately 0.2 (units (unknown) date) cm. unknown) (unknown) (no (unknown) (unknown) approximately 0.4 (units (unknown) date) cm and minimal unknown) anterolisthesis at C3-C4 measuring (unknown) (no (unknown) (unknown) arthropathy (units (un known) date) throughout the unknown) cervical spine.? Visualized superior ribs are (unknown) (no (unknown) (unknown) atherosclerosis.? (units (unknown) date) unknown) (unknown) (no (unknown) (unknown) benzonatate 100 mg (units (unknown) date) capsule 100 mg PO unknown) TID PRN #14 cap 03/05/21 (unknown) (no (unknown) (unknown) buprenorphine (units ( unknown) date) [BUPRENORPHINE] unknown) AdvReac Mild NAUSEA, Verified 11/28/21 15:33 (unknown) (no (unknown) (unknown) buprenorphine, (units (unknown) date) hyoscyamine, unknown) [id number] Reductase Inhibitor, diazepam (unknown) (no (unknown) (unknown) cefdinir 300 mg (units (unknown) date) capsule 300 mg PO unknown) BID #20 cap 10/09/21 (unknown) (no (unknown) (unknown) celecoxib (units (unkn own) date) [CELECOXIB] Allergy unknown) Mild SWELLING Verified 11/28/21 15:33 (unknown) (no (unknown) (unknown) cetirizine 10 mg (units (unknown) date) capsule (Zyrtec) 10 unknown) mg PO DAILY 05/22/19 10/08/21 (unknown) (no (unknown) (unknown) chronic back pain, (units (unknown) date) ataxia, AFib, COPD unknown) presents for evaluation of a witnessed (unknown) (no (unknown) (unknown) chronic sinusitis. (units (unknown) date) unknown) (unknown) (no (unknown) (unknown) constipation, (units ( unknown) date) melena. unknown) (unknown) (no (unknown) (unknown) consumed a large (units (unknown) date) amount of alcohol unknown) tonight in addition to many other medications (unknown) (no (unknown) (unknown) contusion, (units (unk nown) date) laceration, unknown) hematoma or evidence of depressed skull fracture (unknown) (no (unknown) (unknown) degeneration also (units (unknown) date) demonstrated at unknown) C2-C3 and C3-C4.? There is multilevel moderate (unknown) (no (unknown) (unknown) degenerative disc (units (unknown) date) disease within the unknown) visualized upper thoracic spine.? Mild disc (unknown) (no (unknown) (unknown) diazepam [From (units (unknown) date) Valium] AdvReac unknown) Confusion Verified 11/28/21 15:33 (unknown) (no (unknown) (unknown) diclofenac sodium (units (unknown) date) 1 % topical gel 2 g unknown) TOPICAL QID #100 g 11/19/21 (unknown) (no (unknown) (unknown) difficult time (units ( unknown) date) ambulating and is unknown) unsafe to discharge at this time. His has (unknown) (no (unknown) (unknown) drinking. (units (unkn own) date) Phenobarb ordered unknown) and moved to room with monitor (unknown) (no (unknown) (unknown) ferrous sulfate (units (unknown) date) 325 mg (65 mg 325 unknown) mg PO DAILY 10/19/19 10/08/21 (unknown) (no (unknown) (unknown) fluticasone (units (un known) date) propionate 50 1 unknown) spray INTRANASAL DAILY PRN #0 11/02/17 10/08/21 (unknown) (no (unknown) (unknown) following (units (unkn own) date) unknown) (unknown) (no (unknown) (unknown) furosemide 40 mg (units (unknown) date) tablet (Lasix) 40 unknown) mg PO DAILY 10/08/21 10/08/21 (unknown) (no (unknown) (unknown) glipizide 2.5 mg (units (unknown) date) tablet, extended unknown) 2.5 mg PO DAILY 10/08/21 10/08/21 (unknown) (no (unknown) (unknown) ground level fall. (units (unknown) date) He stumbled and unknown) fell forward, striking his nose. There was (unknown) (no (unknown) (unknown) hand (units (unkno wn) date) unknown) (unknown) (no (unknown) (unknown) hematomas.? No (units (unknown) date) apical unknown) pneumothoraces.? (unknown) (no (unknown) (unknown) household members: (units (unknown) date) spouse unknown) (unknown) (no (unknown) (unknown) hyoscyamine (units (un known) date) [HYOSCYAMINE] unknown) AdvReac Mild LEG Verified 11/28/21 15:33 (unknown) (no (unknown) (unknown) intact.? (units (unkno wn) date) unknown) (unknown) (no (unknown) (unknown) iron) (units (unkno wn) date) tablet,delayed unknown) release (unknown) (no (unknown) (unknown) latex [LATEX] (units ( unknown) date) Allergy Mild RASH unknown) Verified 11/28/21 15:33 (unknown) (no (unknown) (unknown) lesions.? (units (unkn own) date) unknown) (unknown) (no (unknown) (unknown) levalbuterol HCl (units (unknown) date) 1.25 mg/3 mL 3 ml unknown) INHALATION Q6H PRN 10/16/18 10/08/21 (unknown) (no (unknown) (unknown) levalbuterol (units (u nknown) date) tartrate 45 1 puff unknown) INHALATION Q4-6H PRN #15 06/22/18 (unknown) (no (unknown) (unknown) mastoid air cells (units (unknown) date) are clear. unknown) (unknown) (no (unknown) (unknown) mcg/actuation (units ( unknown) date) aerosol inhaler unknown) gram (unknown) (no (unknown) (unknown) mcg/actuation (units ( unknown) date) nasal unknown) (unknown) (no (unknown) (unknown) measuring (units (unkn own) date) unknown) (unknown) (no (unknown) (unknown) meclizine 25 mg (units (unknown) date) tablet 25 mg PO QID unknown) PRN #30 tab 10/09/21 (unknown) (no (unknown) (unknown) methocarbamol 500 (units (unknown) date) mg tablet 500 mg PO unknown) Q8H PRN #14 tab 11/19/21 (unknown) (no (unknown) (unknown) metoprolol (units (unk nown) date) tartrate 100 mg unknown) tablet 100 mg PO BID 10/16/18 10/08/21 (unknown) (no (unknown) (unknown) mg tablet (units (unkn own) date) (Percocet) unknown) (unknown) (no (unknown) (unknown) mild distress. (units (unknown) date) GCS 15, smells of unknown) alcohol and slurring his words (unknown) (no (unknown) (unknown) moderate (units (unkno wn) date) unknown) (unknown) (no (unknown) (unknown) multiple levels as (units (unknown) date) described. unknown) (unknown) (no (unknown) (unknown) multivitamin (units (u nknown) date) (Multiple Vitamins) unknown) 1 tab PO DAILY #0 17 10/08/21 (unknown) (no (unknown) (unknown) no loss of (units (unk nown) date) consciousness and unknown) he has had no nausea or vomiting. He denies any (unknown) (no (unknown) (unknown) other injuries (units (unknown) date) such as neck, back unknown) or extremities. His states that he (unknown) (no (unknown) (unknown) oxycodone 5 mg (units (unknown) date) tablet 10 mg PO unknown) Q4-5H PRN #60 tab 11/06/20 (unknown) (no (unknown) (unknown) oxycodone-acetamin (units (unknown) date) ophen 5 mg-325 1 unknown) tab PO Q8H PRN #10 tab 11/19/21 (unknown) (no (unknown) (unknown) oxycodone-acetamin (units (unknown) date) ophen 5 mg-325 1 unknown) tab PO TID PRN #10 tab 11/19/21 (unknown) (no (unknown) (unknown) paravertebral (units ( unknown) date) unknown) (unknown) (no (unknown) (unknown) patient (units (unkno wn) date) unknown) (unknown) (no (unknown) (unknown) prednisone 20 mg (units (unknown) date) tablet 20 mg PO unknown) DAILY #32 tab 11/28/21 (unknown) (no (unknown) (unknown) prednisone 50 mg (units (unknown) date) tablet 50 mg PO unknown) DAILY #5 tab 11/19/21 (unknown) (no (unknown) (unknown) prominence.? (units (u nknown) date) unknown) (unknown) (no (unknown) (unknown) release 24 hr (units ( unknown) date) (Glucotrol XL) unknown) (unknown) (no (unknown) (unknown) seizures, (units (unkn own) date) incoordination. unknown) (unknown) (no (unknown) (unknown) sequelae of (units (un known) date) unknown) (unknown) (no (unknown) (unknown) sinusitis.? The (units (unknown) date) unknown) (unknown) (no (unknown) (unknown) size.? (units (unkno wn) date) unknown) (unknown) (no (unknown) (unknown) solution for (units (u nknown) date) nebulization unknown) (unknown) (no (unknown) (unknown) solution for (units (u nknown) date) nebulization unknown) (unknown) (no (unknown) (unknown) spray,suspension (units (unknown) date) unknown) (unknown) (no (unknown) (unknown) study.? There are (units (unknown) date) postsurgical unknown) changes also redemonstrated status post prior (unknown) (no (unknown) (unknown) substance use (units ( unknown) date) type: does not use unknown) (unknown) (no (unknown) (unknown) suspicious (units (unk nown) date) unknown) (unknown) (no (unknown) (unknown) tablet (units (unkno wn) date) unknown) (unknown) (no (unknown) (unknown) that he would (units ( unknown) date) routinely take. He unknown) is activated as a modified trauma. (unknown) (no (unknown) (unknown) the prior (units (unkn own) date) unknown) (unknown) (no (unknown) (unknown) thickening (units (unk nown) date) unknown) (unknown) (no (unknown) (unknown) to the (units (unkno wn) date) unknown) (unknown) (no (unknown) (unknown) trazodone 100 mg (units (unknown) date) tablet 400 tab PO unknown) BEDTIME 12/09/17 10/08/21 (unknown) (no (unknown) (unknown) varenicline (units (un known) date) [VARENICLINE] unknown) AdvReac Severe Paranoia Verified 11/28/21 15:33 (unknown) (no (unknown) (unknown) vertex, with (units (u nknown) date) coronal and unknown) sagittal reformats.? For radiation dose reduction, the (unknown) (no (unknown) (unknown) was used:? (units (unk nown) date) automated exposure unknown) control, adjustment of mA and/or kV according to (unknown) (no (unknown) (unknown) within the (units (unk nown) date) visualized left unknown) maxillary sinus suggesting sequelae of chronic (unknown) (no (unknown) (unknown) without erythema, (units (unknown) date) tonsillar unknown) hypertrophy or exudate. Airway patent. Result panel 40 (unknown) (no (unknown) (unknown) (no value) (units (unk nown) date) unknown) (unknown) (no (unknown) (unknown) Radiologist's (units ( unknown) date) Impression: unknown) (unknown) (no (unknown) (unknown) (no value) (units (unk nown) date) unknown) (unknown) (no (unknown) (unknown) Date of Service: (units (unknown) date) 12/07/21 unknown) (unknown) (no (unknown) (unknown) (no value) (units (unk nown) date) unknown) (unknown) (no (unknown) (unknown) 12/07/21 23:05 (units (unknown) date) unknown) (unknown) (no (unknown) (unknown) 1 puff INHALATION (units (unknown) date) Q4-6H PRN (Reason: unknown) shortness of breath or wheezing) Qty: 15 (unknown) (no (unknown) (unknown) 1 spray Intranasal (units (unknown) date) DAILY PRN (Reason: unknown) Allergy Symptoms) Qty: 0 0RF (unknown) (no (unknown) (unknown) 1 tab PO DAILY (units (unknown) date) Qty: 0 0RF unknown) (unknown) (no (unknown) (unknown) 1 tab PO Q6HR PRN (units (unknown) date) (Reason: Back Pain) unknown) 0RF (unknown) (no (unknown) (unknown) 1 tab PO Q8H PRN (units (unknown) date) (Reason: pain) Qty: unknown) 10 0RF (unknown) (no (unknown) (unknown) 1 tab PO TID PRN (units (unknown) date) (Reason: pain) Qty: unknown) 10 0RF (unknown) (no (unknown) (unknown) 10 mg PO DAILY 0RF (units (unknown) date) unknown) (unknown) (no (unknown) (unknown) 10 mg PO Q4-5H PRN (units (unknown) date) (Reason: Pain, unknown) Severe (7-10)) Qty: 60 0RF (unknown) (no (unknown) (unknown) 100 mg PO BID 0RF (units (unknown) date) unknown) (unknown) (no (unknown) (unknown) 100 mg PO TID PRN (units (unknown) date) (Reason: cough) unknown) Qty: 14 0RF (unknown) (no (unknown) (unknown) [address] (units (unknown) date) unknown) (unknown) (no (unknown) (unknown) 2 g topical QID (units (unknown) date) Qty: 100 0RF unknown) (unknown) (no (unknown) (unknown) 2.5 mg PO DAILY (units (unknown) date) 0RF unknown) (unknown) (no (unknown) (unknown) 2.5 mg inhalation (units (unknown) date) QID Qty: 90 1RF unknown) (unknown) (no (unknown) (unknown) 20 mg PO DAILY (units (unknown) date) Qty: 32 0RF unknown) (unknown) (no (unknown) (unknown) 25 mg PO QID PRN (units (unknown) date) (Reason: vertigo) unknown) Qty: 30 0RF (unknown) (no (unknown) (unknown) 3 ml Inhalation (units (unknown) date) Q6H PRN (Reason: unknown) Shortness Of Breath) 0RF (unknown) (no (unknown) (unknown) 300 mg PO BID Qty: (units (unknown) date) 20 0RF unknown) (unknown) (no (unknown) (unknown) 325 mg PO DAILY (units (unknown) date) 0RF unknown) (unknown) (no (unknown) (unknown) 40 mg PO DAILY 0RF (units (unknown) date) unknown) (unknown) (no (unknown) (unknown) 400 tab PO BEDTIME (units (unknown) date) 0RF unknown) (unknown) (no (unknown) (unknown) 50 mg PO DAILY (units (unknown) date) Qty: 5 0RF unknown) (unknown) (no (unknown) (unknown) 500 mg PO Q8H PRN (units (unknown) date) (Reason: muscle unknown) spasm) Qty: 14 0RF (unknown) (no (unknown) (unknown) 60mg x 5 day, 40mg (units (unknown) date) x 5 day, 20mg x5 unknown) day, 10mg x 4 days (unknown) (no (unknown) (unknown) 650 mg PO Q6H PRN (units (unknown) date) (Reason: pain) Qty: unknown) 60 0RF (unknown) (no (unknown) (unknown) ANXIETY, (units (unkno wn) date) unknown) (unknown) (no (unknown) (unknown) Admin: 12/07/21 (units (unknown) date) 23:25 Dose: 150 unknown) mls/hr (unknown) (no (unknown) (unknown) Allergies (units (unkn own) date) unknown) (unknown) (no (unknown) (unknown) [place] (units ( unknown) date) [id number] unknown) (unknown) (no (unknown) (unknown) CT Scan Report (units (unknown) date) unknown) (unknown) (no (unknown) (unknown) Close (units (unkno wn) date) unknown) (unknown) (no (unknown) (unknown) DIZZINESS (units (unkn own) date) unknown) (unknown) (no (unknown) (unknown) Documented by: (units (unknown) date) [email or web address] unknown) (unknown) (no (unknown) (unknown) Documented by: (units (unknown) date) MICHELLE unknown) (unknown) (no (unknown) (unknown) Documented by: (units (unknown) date) KPETERSON unknown) (unknown) (no (unknown) (unknown) Documented by: (units (unknown) date) RLAZANI unknown) (unknown) (no (unknown) (unknown) ED Orders (units (unkn own) date) unknown) (unknown) (no (unknown) (unknown) EXPOSURE (units (unkno wn) date) unknown) (unknown) (no (unknown) (unknown) Emergency Report (units (unknown) date) unknown) (unknown) (no (unknown) (unknown) Home Medications (units (unknown) date) unknown) (unknown) (no (unknown) (unknown) INHALE 1 VIAL PER (units (unknown) date) NEBULIZER EVERY 6 unknown) HOURS NEEDED (unknown) (no (unknown) (unknown) [facility] (units (unknown) date) unknown) (unknown) (no (unknown) (unknown) [facility] (units (unknown) date) [address] [place] [address] unknown) [place] [address] (unknown) (no (unknown) (unknown) JERKING, (units (unkno wn) date) unknown) (unknown) (no (unknown) (unknown) Lab Results (units (un known) date) unknown) (unknown) (no (unknown) (unknown) Label Comments: (units (unknown) date) unknown) (unknown) (no (unknown) (unknown) Last Admin: (units (un known) date) 12/08/21 01:35 unknown) Dose: 1 tab (unknown) (no (unknown) (unknown) Last Admin: (units (un known) date) 12/08/21 02:34 unknown) Dose: 4 mg (unknown) (no (unknown) (unknown) Last Admin: (units (un known) date) 12/08/21 04:04 unknown) Dose: 0.5 mg (unknown) (no (unknown) (unknown) Last Admin: (units (un known) date) 12/08/21 05:53 unknown) Dose: 4 mg (unknown) (no (unknown) (unknown) Last Admin: (units (un known) date) 12/08/21 05:53 unknown) Dose: 40 mg (unknown) (no (unknown) (unknown) Last Admin: (units (un known) date) 12/08/21 06:11 unknown) Dose: 260 mg (unknown) (no (unknown) (unknown) Last Admin: (units (un known) date) 12/08/21 06:42 unknown) Dose: 20 mg (unknown) (no (unknown) (unknown) Last Admin: (units (un known) date) 12/08/21 06:47 unknown) Dose: Not Given (unknown) (no (unknown) (unknown) Last Admin: (units (un known) date) 12/08/21 07:16 unknown) Dose: 10 mg (unknown) (no (unknown) (unknown) Last Admin: (units (un known) date) 12/08/21 07:17 unknown) Dose: 2.5 mg (unknown) (no (unknown) (unknown) Last Infusion: (units (unknown) date) 12/08/21 04:00 unknown) Dose: 0 mls/hr (unknown) (no (unknown) (unknown) Launch?Image (units (u nknown) date) unknown) (unknown) (no (unknown) (unknown) MINUTES (units (unkno wn) date) unknown) (unknown) (no (unknown) (unknown) NAUSEA W/I (units (unk nown) date) unknown) (unknown) (no (unknown) (unknown) Point of Care (units ( unknown) date) Testing unknown) (unknown) (no (unknown) (unknown) Previous Rx's (units ( unknown) date) unknown) (unknown) (no (unknown) (unknown) Rx Instructions: (units (unknown) date) unknown) (unknown) (no (unknown) (unknown) Signed (units (unkno wn) date) unknown) (unknown) (no (unknown) (unknown) Spouse Milana (units (u nknown) date) called + reported unknown) patient not taking it regularly. (unknown) (no (unknown) (unknown) Stop: 12/08/21 (units (unknown) date) 01:26 unknown) (unknown) (no (unknown) (unknown) Stop: 12/08/21 (units (unknown) date) 02:32 unknown) (unknown) (no (unknown) (unknown) Stop: 12/08/21 (units (unknown) date) 04:01 unknown) (unknown) (no (unknown) (unknown) Stop: 12/08/21 (units (unknown) date) 05:47 unknown) (unknown) (no (unknown) (unknown) Stop: 12/08/21 (units (unknown) date) 05:50 unknown) (unknown) (no (unknown) (unknown) Stop: 12/08/21 (units (unknown) date) 06:04 unknown) (unknown) (no (unknown) (unknown) Stop: 12/08/21 (units (unknown) date) 06:31 unknown) (unknown) (no (unknown) (unknown) Stop: 12/08/21 (units (unknown) date) 07:12 unknown) (unknown) (no (unknown) (unknown) Stop: 12/08/21 (units (unknown) date) 07:16 unknown) (unknown) (no (unknown) (unknown) Vital Signs - 8 hr (units (unknown) date) unknown) (unknown) (no (unknown) (unknown) W/EXTENDED (units (unk nown) date) unknown) (unknown) (no (unknown) (unknown) apply to single (units (unknown) date) elbow, wrist or unknown) hand; for hand includes palm/fingers/back of (unknown) (no (unknown) (unknown) patient states (units (unknown) date) weaning off. unknown) (unknown) (no (unknown) (unknown) take 1 tablet by (units (unknown) date) mouth once daily unknown) (unknown) (no (unknown) (unknown) take 1 tablet by (units (unknown) date) mouth twice a day unknown) (unknown) (no (unknown) (unknown) (no value) (units (unk nown) date) unknown) (unknown) (no (unknown) (unknown) 12/07/21 12/07/21 (units (unknown) date) 12/07/21 unknown) Range/Units (unknown) (no (unknown) (unknown) 12/07/21 12/08/21 (units (unknown) date) Range/Units unknown) (unknown) (no (unknown) (unknown) 23:05 23:05 23:05 (units (unknown) date) unknown) (unknown) (no (unknown) (unknown) 23:05 23:44 23:57 (units (unknown) date) unknown) (unknown) (no (unknown) (unknown) 23:57 01:33 (units (un known) date) unknown) (unknown) (no (unknown) (unknown) Zyrtec 10 mg (units (u nknown) date) Capsule unknown) (unknown) (no (unknown) (unknown) acetaminophen (units ( unknown) date) [Athenol] 325 mg unknown) tablet (unknown) (no (unknown) (unknown) acetaminophen-code (units (unknown) date) ine 300-30 mg unknown) tablet (unknown) (no (unknown) (unknown) albuterol sulfate (units (unknown) date) 1.25 mg/3 mL unknown) solution for nebulization (unknown) (no (unknown) (unknown) benzonatate (units (un known) date) [Tessalon Perles] unknown) 100 mg capsule (unknown) (no (unknown) (unknown) cefdinir 300 mg (units (unknown) date) capsule unknown) (unknown) (no (unknown) (unknown) diclofenac sodium (units (unknown) date) 1 % gel unknown) (unknown) (no (unknown) (unknown) ferrous sulfate (units (unknown) date) 325 mg (65 mg iron) unknown) tablet,delayed release (DR/EC) (unknown) (no (unknown) (unknown) fluticasone (units (un known) date) propionate 16 GM unknown) spray,suspension (unknown) (no (unknown) (unknown) furosemide [Lasix] (units (unknown) date) 40 mg tablet unknown) (unknown) (no (unknown) (unknown) glipizide (units (unkn own) date) [Glucotrol XL] 2.5 unknown) mg tablet extended release 24 hr (unknown) (no (unknown) (unknown) levalbuterol HCl (units (unknown) date) 1.25 mg/3 mL unknown) solution for nebulization (unknown) (no (unknown) (unknown) levalbuterol (units (u nknown) date) tartrate [Xopenex unknown) HFA] 45 mcg/actuation HFA aerosol inhaler (unknown) (no (unknown) (unknown) meclizine 25 mg (units (unknown) date) tablet unknown) (unknown) (no (unknown) (unknown) methocarbamol 500 (units (unknown) date) mg tablet unknown) (unknown) (no (unknown) (unknown) metoprolol (units (unk nown) date) tartrate 100 mg unknown) tablet (unknown) (no (unknown) (unknown) multivitamin (units (u nknown) date) [Multiple Vitamins] unknown) 1 EACH tablet (unknown) (no (unknown) (unknown) oxycodone 5 mg (units (unknown) date) Tablet unknown) (unknown) (no (unknown) (unknown) oxycodone-acetamin (units (unknown) date) ophen [Percocet] unknown) 5-325 mg tablet (unknown) (no (unknown) (unknown) prednisone 20 mg (units (unknown) date) tablet unknown) (unknown) (no (unknown) (unknown) prednisone 50 mg (units (unknown) date) tablet unknown) (unknown) (no (unknown) (unknown) trazodone 100 mg (units (unknown) date) tablet unknown) (unknown) (no (unknown) (unknown) 12/08/21 (units (unkno wn) date) unknown) (unknown) (no (unknown) (unknown) Medication (units (unk nown) date) Instructions unknown) Recorded (unknown) (no (unknown) (unknown) Medication (units (unk nown) date) Instructions unknown) Recorded Confirmed (unknown) (no (unknown) (unknown) been contacted and (units (unknown) date) she will be able to unknown) come pick him up in the morning. (unknown) (no (unknown) (unknown) daytime (units (unkno wn) date) hospitalist to unknown) accept patient. (unknown) (no (unknown) (unknown) facet (units (unkno wn) date) unknown) (unknown) (no (unknown) (unknown) junction (units (unkno wn) date) unknown) (unknown) (no (unknown) (unknown) of (units (unkno wn) date) unknown) (unknown) (no (unknown) (unknown) rales, or rhonchi. (units (unknown) date) unknown) (unknown) (no (unknown) (unknown) <Ezra Jasmine, (units (unknown) date) - Last Filed: unknown) 12/08/21 07:42> (unknown) (no (unknown) (unknown) <Jung Dejesus DO (units (unknown) date) - Last Filed: unknown) 12/08/21 06:53> (unknown) (no (unknown) (unknown) (Athenol) (units (unkn own) date) unknown) (unknown) (no (unknown) (unknown) (More??) (units (unkno wn) date) unknown) (unknown) (no (unknown) (unknown) (Tessalon Perles) (units (unknown) date) unknown) (unknown) (no (unknown) (unknown) (Xopenex HFA) (units ( unknown) date) unknown) (unknown) (no (unknown) (unknown) - (units (unkno wn) date) unknown) (unknown) (no (unknown) (unknown) [id number] (units (unkn own) date) unknown) (unknown) (no (unknown) (unknown) 08/11/20 (units (unkno wn) date) unknown) (unknown) (no (unknown) (unknown) 08/16/20 (units (unkno wn) date) unknown) (unknown) (no (unknown) (unknown) 08/28/20 (units (unkno wn) date) unknown) (unknown) (no (unknown) (unknown) 09/15/21 (units (unkno wn) date) unknown) (unknown) (no (unknown) (unknown) 10/07/21 (units (unkno wn) date) unknown) (unknown) (no (unknown) (unknown) 10/08/21 (units (unkno wn) date) unknown) (unknown) (no (unknown) (unknown) 10/31/20 (units (unkno wn) date) unknown) (unknown) (no (unknown) (unknown) 11/04/20 (units (unkno wn) date) unknown) (unknown) (no (unknown) (unknown) 11/07/20 (units (unkno wn) date) unknown) (unknown) (no (unknown) (unknown) 11/19/21 (units (unkno wn) date) unknown) (unknown) (no (unknown) (unknown) 04/17/21 (units (unkno wn) date) unknown) (unknown) (no (unknown) (unknown) 11/28/21 (units (unkno wn) date) unknown) (unknown) (no (unknown) (unknown) 12/07/21 (units (unkno wn) date) unknown) (unknown) (no (unknown) (unknown) 12/07/21 23:05 (units (unknown) date) unknown) (unknown) (no (unknown) (unknown) 12/07/21 23:21 (units (unknown) date) unknown) (unknown) (no (unknown) (unknown) 12/07/21 23:44 (units (unknown) date) unknown) (unknown) (no (unknown) (unknown) 12/07/21 23:57 (units (unknown) date) unknown) (unknown) (no (unknown) (unknown) 12/08/21 03:22 (units (unknown) date) unknown) (unknown) (no (unknown) (unknown) 12/08/21 06:48 (units (unknown) date) unknown) (unknown) (no (unknown) (unknown) 12/28/20 (units (unkno wn) date) unknown) (unknown) (no (unknown) (unknown) 05:35 12/08/21 (units (unknown) date) unknown) (unknown) (no (unknown) (unknown) 05:37 12/08/21 (units (unknown) date) unknown) (unknown) (no (unknown) (unknown) 06:32 (units (unkno wn) date) unknown) (unknown) (no (unknown) (unknown) 06:33 12/08/21 (units (unknown) date) unknown) (unknown) (no (unknown) (unknown) 03/05/21 (units (unkno wn) date) unknown) (unknown) (no (unknown) (unknown) 07:00 12/08/21 (units (unknown) date) unknown) (unknown) (no (unknown) (unknown) 07:18 (units (unkno wn) date) unknown) (unknown) (no (unknown) (unknown) 04/16/21 (units (unkno wn) date) unknown) (unknown) (no (unknown) (unknown) 0RF (units (unkno wn) date) unknown) (unknown) (no (unknown) (unknown) 1. No acute (units (un known) date) intracranial unknown) abnormality. (unknown) (no (unknown) (unknown) 1.? No acute (units (u nknown) date) fracture or unknown) subluxation. (unknown) (no (unknown) (unknown) 12 point review of (units (unknown) date) systems is negative unknown) except for those stated above (unknown) (no (unknown) (unknown) 07/18/20 (units (unkno wn) date) unknown) (unknown) (no (unknown) (unknown) 2. Bony remodeling (units (unknown) date) in the left unknown) maxillary sinus redemonstrated consistent with (unknown) (no (unknown) (unknown) 2. Postsurgical (units (unknown) date) changes unknown) redemonstrated throughout the cervical spine with fusion (unknown) (no (unknown) (unknown) 3. Mild cerebral (units (unknown) date) volume loss.? unknown) (unknown) (no (unknown) (unknown) 76-year-old male (units (unknown) date) former smoker with unknown) heavy alcohol abuse today and history of (unknown) (no (unknown) (unknown) 7:00 a.m. s/o from (units (unknown) date) dr dejesus, patient unknown) will need admission for intractable (unknown) (no (unknown) (unknown) ? (units (unkno wn) date) unknown) (unknown) (no (unknown) (unknown) ? (units (unkno wn) date) unknown) (unknown) (no (unknown) (unknown) ?Minimal (units (unkno wn) date) anterolisthesis unknown) also demonstrated at T1-T2.? Findings are similar to (unknown) (no (unknown) (unknown) ACDF at (units (unkno wn) date) unknown) (unknown) (no (unknown) (unknown) ALT (<50) (units ( unknown) date) IU/L unknown) (unknown) (no (unknown) (unknown) ALT (<50) IU/L (units (unknown) date) unknown) (unknown) (no (unknown) (unknown) ALT 31 (<50) (units (unknown) date) IU/L unknown) (unknown) (no (unknown) (unknown) ANTIBIOTICS)] (units ( unknown) date) unknown) (unknown) (no (unknown) (unknown) AST (17-59) (units (unknown) date) IU/L unknown) (unknown) (no (unknown) (unknown) AST (17-59) (units (unknown) date) IU/L unknown) (unknown) (no (unknown) (unknown) AST 32 (17-59) (units (unknown) date) IU/L unknown) (unknown) (no (unknown) (unknown) Accession Number: (units (unknown) date) [id number] ?? unknown) (unknown) (no (unknown) (unknown) Accession Number: (units (unknown) date) [id number] ?? unknown) (unknown) (no (unknown) (unknown) Acct:[id number] (units (unknown) date) unknown) (unknown) (no (unknown) (unknown) Acetaminophen (units ( unknown) date) (10-30) ug/mL unknown) (unknown) (no (unknown) (unknown) Acetaminophen (units ( unknown) date) (10-30) ug/mL unknown) (unknown) (no (unknown) (unknown) Acetaminophen < (units (unknown) date) 10 (10-30) ug/mL unknown) (unknown) (no (unknown) (unknown) Acetaminophen Stat (units (unknown) date) unknown) (unknown) (no (unknown) (unknown) Acetaminophen/Code (units (unknown) date) ine Phosphate unknown) (Codeine/Acetaminop hen 30/300 Tablet) 1 tab PO (unknown) (no (unknown) (unknown) Achalasia (units (unkn own) date) unknown) (unknown) (no (unknown) (unknown) Age/Sex: 76 / M (units (unknown) date) unknown) (unknown) (no (unknown) (unknown) Age/Sex: 76 / M (units (unknown) date) unknown) (unknown) (no (unknown) (unknown) Albumin (units (unkno wn) date) (3.5-5.0) g/dL unknown) (unknown) (no (unknown) (unknown) Albumin (units (unkno wn) date) (3.5-5.0) g/dL unknown) (unknown) (no (unknown) (unknown) Albumin 4.1 (units ( unknown) date) (3.5-5.0) g/dL unknown) (unknown) (no (unknown) (unknown) Albumin/Globulin (units (unknown) date) Ratio (1.0-2.8) unknown) (unknown) (no (unknown) (unknown) Albumin/Globulin (units (unknown) date) Ratio (1.0-2.8) unknown) (unknown) (no (unknown) (unknown) Albumin/Globulin (units (unknown) date) Ratio 1.4 unknown) (1.0-2.8) (unknown) (no (unknown) (unknown) Albuterol (units (unkn own) date) (Albuterol 2.5 Mg/3 unknown) Ml Neb (Adult)) 2.5 mg INH NOW ONE (unknown) (no (unknown) (unknown) Alkaline (units (unkno wn) date) Phosphatase unknown) (38-126) U/L (unknown) (no (unknown) (unknown) Alkaline (units (unkno wn) date) Phosphatase unknown) (38-126) U/L (unknown) (no (unknown) (unknown) Alkaline (units (unkno wn) date) Phosphatase 64 unknown) (38-126) U/L (unknown) (no (unknown) (unknown) Allergy/Adv: (units (u nknown) date) celecoxib, latex, unknown) Sulfa (Sulfonamide Antibiotics), varenicline, (unknown) (no (unknown) (unknown) Allergy/AdvReac (units (unknown) date) Type Severity unknown) Reaction Status Date / Time (unknown) (no (unknown) (unknown) Anginal pain (units (u nknown) date) unknown) (unknown) (no (unknown) (unknown) Ankle X-Ray (units (un known) date) (Signed) unknown) (unknown) (no (unknown) (unknown) Antibiotics) (units (u nknown) date) unknown) (unknown) (no (unknown) (unknown) Approved by: (units (u nknown) date) Maxim Valadez, unknown) Clifford on 12/07/2021 at 21:44 ? (unknown) (no (unknown) (unknown) Approved by: (units (u nknown) date) Maxim Valadez unknownRui Horton on 12/07/2021 at 21:48 ? (unknown) (no (unknown) (unknown) Asthma (units (unkno wn) date) unknown) (unknown) (no (unknown) (unknown) Atrial (units (unkno wn) date) fibrillation unknown) (unknown) (no (unknown) (unknown) BACK: Nontender (units (unknown) date) without deformity unknown) or crepitance. No flank tenderness. (unknown) (no (unknown) (unknown) BUN (9-20) (units (unknown) date) mg/dL unknown) (unknown) (no (unknown) (unknown) BUN (9-20) (units ( unknown) date) mg/dL unknown) (unknown) (no (unknown) (unknown) BUN 21 H (units (unk nown) date) (9-20) mg/dL unknown) (unknown) (no (unknown) (unknown) BUN/Creatinine (units (unknown) date) Ratio (6-22) unknown) (unknown) (no (unknown) (unknown) BUN/Creatinine (units (unknown) date) Ratio (6-22) unknown) (unknown) (no (unknown) (unknown) BUN/Creatinine (units (unknown) date) Ratio 23.9 H unknown) (6-22) (unknown) (no (unknown) (unknown) Baso # (Auto) (units ( unknown) date) (0-100) /uL unknown) (unknown) (no (unknown) (unknown) Baso # (Auto) (units ( unknown) date) (0-100) /uL unknown) (unknown) (no (unknown) (unknown) Baso # (Auto) 100 (units (unknown) date) (0-100) /uL unknown) (unknown) (no (unknown) (unknown) Baso % (Auto) (units ( unknown) date) (0-2) % unknown) (unknown) (no (unknown) (unknown) Baso % (Auto) (units ( unknown) date) (0-2) % unknown) (unknown) (no (unknown) (unknown) Baso % (Auto) 0.8 (units (unknown) date) (0-2) % unknown) (unknown) (no (unknown) (unknown) Blood Culture Stat (units (unknown) date) unknown) (unknown) (no (unknown) (unknown) Blood Pressure (units (unknown) date) 159/98 H 12/07/21 unknown) 20:23 (unknown) (no (unknown) (unknown) Blood Pressure (units (unknown) date) 194/102 H 228/109 H unknown) (unknown) (no (unknown) (unknown) Blood Pressure (units (unknown) date) 207/103 H 207/103 H unknown) (unknown) (no (unknown) (unknown) Bones:? No (units (unk nown) date) fractures or unknown) subluxation.? There is anterolisthesis at C2-C3 (unknown) (no (unknown) (unknown) Brain MRI (Signed) (units (unknown) date) unknown) (unknown) (no (unknown) (unknown) Brain:? No (units (unkn own) date) intracranial unknown) hemorrhage, mass, or mass effect.? The adams-white matter (unknown) (no (unknown) (unknown) C4-C5 and C7-T1.? (units (unknown) date) There is also unknown) fusion at C5-C6 and C6-C7.? There is mild to (unknown) (no (unknown) (unknown) CARDIOVASCULAR: (units (unknown) date) Denies chest pain, unknown) palpitations, orthopnea, edema, (unknown) (no (unknown) (unknown) CARDIOVASCULAR: (units (unknown) date) Regular rate and unknown) rhythm without murmurs, gallops, or rubs. (unknown) (no (unknown) (unknown) COMPARISON:? (units (u nknown) date) [facility], unknown) CT, CT CERVICAL SPINE WO [facility], 04/16/2021, 12:21. (unknown) (no (unknown) (unknown) COMPARISON:? (units (u nknown) date) [facility], unknown) CT, CT HEAD/BRAIN WO [facility], 04/16/2021, 12:21. (unknown) (no (unknown) (unknown) COPD (chronic (units ( unknown) date) obstructive unknown) pulmonary disease) (unknown) (no (unknown) (unknown) COVID19 -Nasal (units (unknown) date) RAPID/Pre-Proc Stat unknown) (unknown) (no (unknown) (unknown) CSF spaces:? Basal (units (unknown) date) cisterns are unknown) patent.? The ventricles are symmetric in size (unknown) (no (unknown) (unknown) CT - cervical (units ( unknown) date) spine: unknown) (unknown) (no (unknown) (unknown) CT lumbar spine wo (units (unknown) date) con Stat unknown) (unknown) (no (unknown) (unknown) CT scan - head: (units (unknown) date) unknown) (unknown) (no (unknown) (unknown) Calcium (units (unkno wn) date) (8.4-10.2) mg/dL unknown) (unknown) (no (unknown) (unknown) Calcium (units (unkno wn) date) (8.4-10.2) mg/dL unknown) (unknown) (no (unknown) (unknown) Calcium 8.4 (units ( unknown) date) (8.4-10.2) mg/dL unknown) (unknown) (no (unknown) (unknown) Call,Francisco J (units (unk nown) date) unknown) (unknown) (no (unknown) (unknown) Carbon Dioxide (units (unknown) date) (22-32) mmol/L unknown) (unknown) (no (unknown) (unknown) Carbon Dioxide (units (unknown) date) (22-32) mmol/L unknown) (unknown) (no (unknown) (unknown) Carbon Dioxide (units (unknown) date) 27 (22-32) unknown) mmol/L (unknown) (no (unknown) (unknown) Cervical Spine CT (units (unknown) date) (Signed) unknown) (unknown) (no (unknown) (unknown) Cervical spinal (units (unknown) date) stenosis unknown) (unknown) (no (unknown) (unknown) Chest CTA (Signed) (units (unknown) date) unknown) (unknown) (no (unknown) (unknown) Chest X-Ray (units (un known) date) (Signed) unknown) (unknown) (no (unknown) (unknown) Chest/Abdomen/Pelv (units (unknown) date) is CTA (Signed) unknown) (unknown) (no (unknown) (unknown) Chief Complaint: (units (unknown) date) Trauma unknown) (unknown) (no (unknown) (unknown) Chloride (units (unkno wn) date) (98-107) mmol/L unknown) (unknown) (no (unknown) (unknown) Chloride (units (unkno wn) date) (98-107) mmol/L unknown) (unknown) (no (unknown) (unknown) Chloride 104 (units (unknown) date) (98-107) mmol/L unknown) (unknown) (no (unknown) (unknown) 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 (10/22/16) (unknown) (no (unknown) (unknown) Zeina Saavedra (units (u nknown) date) unknown) (unknown) (no (unknown) (unknown) Complete Blood (units (unknown) date) Count AUTO DIFF unknown) Stat (unknown) (no (unknown) (unknown) Comprehensive (units ( unknown) date) Metabolic Panel unknown) Stat (unknown) (no (unknown) (unknown) Coronary artery (units (unknown) date) disease unknown) (unknown) (no (unknown) (unknown) Course (units (unkno wn) date) unknown) (unknown) (no (unknown) (unknown) Course Narrative: (units (unknown) date) unknown) (unknown) (no (unknown) (unknown) Creatinine (units (unk nown) date) (0.66-1.25) mg/dL unknown) (unknown) (no (unknown) (unknown) Creatinine (units (unk nown) date) (0.66-1.25) mg/dL unknown) (unknown) (no (unknown) (unknown) Creatinine 0.88 (units (unknown) date) (0.66-1.25) mg/dL unknown) (unknown) (no (unknown) (unknown) : 1945 (units (unknown) date) Acct:[id number] unknown) (unknown) (no (unknown) (unknown) : 1945 (units (unknown) date) unknown) (unknown) (no (unknown) (unknown) Kimmy Gomez MD (units (unknown) date) [Primary Care unknown) Provider] - (unknown) (no (unknown) (unknown) Date of Service: (units (unknown) date) 12/07/21 unknown) (unknown) (no (unknown) (unknown) Departure (units (unkn own) date) unknown) (unknown) (no (unknown) (unknown) Inder Farley (units (u nknown) date) unknown) (unknown) (no (unknown) (unknown) Dictated by: (units (u nknown) date) Maxim Valadez, unknown) Norbert. on 12/07/2021 at 21:42 ? ? (unknown) (no (unknown) (unknown) Dictated by: (units (u nknown) date) Maxim Valadez, unknown) M.D. on 12/07/2021 at 21:44 ? ? (unknown) (no (unknown) (unknown) Discharge Plan (units (unknown) date) unknown) (unknown) (no (unknown) (unknown) Discontinued (units (u nknown) date) Medications unknown) (unknown) (no (unknown) (unknown) EKG-12 Lead (units (un known) date) Routine unknown) (unknown) (no (unknown) (unknown) ENT: Nose without (units (unknown) date) bleeding, purulent unknown) drainage. No nasal septal hematoma Throat (unknown) (no (unknown) (unknown) ER Physician: (units ( unknown) date) Ezra Jasmine MD unknown) (unknown) (no (unknown) (unknown) EXTREMITIES: No (units (unknown) date) edema or joint unknown) tenderness. (unknown) (no (unknown) (unknown) EYES: Pupils equal (units (unknown) date) round and reactive. unknown) No hyphema Extraocular motions intact. (unknown) (no (unknown) (unknown) Echocardiogram (units (unknown) date) Ultrasound (Signed) unknown) (unknown) (no (unknown) (unknown) Eos # (Auto) (units (u nknown) date) (0-450) /uL unknown) (unknown) (no (unknown) (unknown) Eos # (Auto) (units (u nknown) date) (0-450) /uL unknown) (unknown) (no (unknown) (unknown) Eos # (Auto) 100 (units (unknown) date) (0-450) /uL unknown) (unknown) (no (unknown) (unknown) Eos % (Auto) (units (u nknown) date) (2-4) % unknown) (unknown) (no (unknown) (unknown) Eos % (Auto) (units (u nknown) date) (2-4) % unknown) (unknown) (no (unknown) (unknown) Eos % (Auto) 2.0 (units (unknown) date) (2-4) % unknown) (unknown) (no (unknown) (unknown) Estimated GFR (units ( unknown) date) (>60) mL/min unknown) (unknown) (no (unknown) (unknown) Estimated GFR (units ( unknown) date) (>60) mL/min unknown) (unknown) (no (unknown) (unknown) Estimated GFR > (units (unknown) date) 60 (>60) mL/min unknown) (unknown) (no (unknown) (unknown) Ethanol (ETOH) (units (unknown) date) Stat unknown) (unknown) (no (unknown) (unknown) Ethyl Alcohol ( (units (unknown) date) - 10) mg/dL unknown) (unknown) (no (unknown) (unknown) Ethyl Alcohol ( (units (unknown) date) - 10) mg/dL unknown) (unknown) (no (unknown) (unknown) Ethyl Alcohol (units ( unknown) date) 111 H ( - 10) unknown) mg/dL (unknown) (no (unknown) (unknown) Exam (units (unkno wn) date) unknown) (unknown) (no (unknown) (unknown) Exam Narrative: (units (unknown) date) unknown) (unknown) (no (unknown) (unknown) FINDINGS:? (units (unk nown) date) unknown) (unknown) (no (unknown) (unknown) Family History (units (unknown) date) (Reviewed 12/08/21 unknown) @ 01:57 by Jung Dejesus DO) (unknown) (no (unknown) (unknown) Foot X-Ray (units (unk nown) date) (Signed) unknown) (unknown) (no (unknown) (unknown) GASTROINTESTINAL: (units (unknown) date) Abdomen soft, unknown) non-tender, nondistended. (unknown) (no (unknown) (unknown) GASTROINTESTINAL: (units (unknown) date) Denies nausea, unknown) vomiting, abdominal pain, diarrhea, (unknown) (no (unknown) (unknown) GENERAL: Denies (units (unknown) date) chills, fatigue, unknown) malaise, fever, sweats. (unknown) (no (unknown) (unknown) GENERAL: [76 year (units (unknown) date) old patient appears unknown) stated age. Well-developed patient, in (unknown) (no (unknown) (unknown) : Denies (units (unk nown) date) dysuria, frequency, unknown) incontinence, hematuria, urinary retention. (unknown) (no (unknown) (unknown) General (units (unkno wn) date) unknown) (unknown) (no (unknown) (unknown) GenericComposite[P (units (unknown) date) lt Count unknown) (150-400) X10^3/uL ] (unknown) (no (unknown) (unknown) GenericComposite[P (units (unknown) date) lt Count unknown) (150-400) X10^3/uL ] (unknown) (no (unknown) (unknown) GenericComposite[P (units (unknown) date) lt Count 241 unknown) (150-400) X10^3/uL ] (unknown) (no (unknown) (unknown) GenericComposite[R (units (unknown) date) BC (4.5-5.9) unknown) X10^6/uL ] (unknown) (no (unknown) (unknown) GenericComposite[R (units (unknown) date) BC (4.5-5.9) unknown) X10^6/uL ] (unknown) (no (unknown) (unknown) GenericComposite[R (units (unknown) date) BC 4.93 unknown) (4.5-5.9) X10^6/uL ] (unknown) (no (unknown) (unknown) GenericComposite[W (units (unknown) date) BC (4.5-11.0) unknown) X10^3/uL ] (unknown) (no (unknown) (unknown) GenericComposite[W (units (unknown) date) BC (4.5-11.0) unknown) X10^3/uL ] (unknown) (no (unknown) (unknown) GenericComposite[W (units (unknown) date) BC 7.4 unknown) (4.5-11.0) X10^3/uL ] (unknown) (no (unknown) (unknown) Globulin (units (unkno wn) date) (1.7-4.1) g/dL unknown) (unknown) (no (unknown) (unknown) Globulin (units (unkno wn) date) (1.7-4.1) g/dL unknown) (unknown) (no (unknown) (unknown) Globulin 2.9 (units (unknown) date) (1.7-4.1) g/dL unknown) (unknown) (no (unknown) (unknown) Glucose (units (unkno wn) date) (80-110) mg/dL unknown) (unknown) (no (unknown) (unknown) Glucose (units (unkno wn) date) (80-110) mg/dL unknown) (unknown) (no (unknown) (unknown) Glucose 124 H (units (unknown) date) (80-110) mg/dL unknown) (unknown) (no (unknown) (unknown) Glucose POC 118 (units (unknown) date) unknown) (unknown) (no (unknown) (unknown) H/O arthroscopic (units (unknown) date) knee surgery unknown) (11/14/17) (unknown) (no (unknown) (unknown) HEAD: Superficial (units (unknown) date) abrasion on the unknown) bridge of his nose, no other obvious (unknown) (no (unknown) (unknown) HEENT: See HPI (units (unknown) date) unknown) (unknown) (no (unknown) (unknown) HPI - Fall (units (unk nown) date) unknown) (unknown) (no (unknown) (unknown) HPI Narrative: (units (unknown) date) unknown) (unknown) (no (unknown) (unknown) Hand X-Ray (units (unk nown) date) (Signed) unknown) (unknown) (no (unknown) (unknown) Jean Oneill (units (unknown) date) unknown) (unknown) (no (unknown) (unknown) Hct (41-53) % (units (unknown) date) unknown) (unknown) (no (unknown) (unknown) Hct (41-53) % (units (unknown) date) unknown) (unknown) (no (unknown) (unknown) Hct 46.0 (units (unkn own) date) (41-53) % unknown) (unknown) (no (unknown) (unknown) Head CT (Signed) (units (unknown) date) unknown) (unknown) (no (unknown) (unknown) Head/Neck CTA (units ( unknown) date) (Signed) unknown) (unknown) (no (unknown) (unknown) Hgb (units (unkno wn) date) (13.5-17.5) g/dL unknown) (unknown) (no (unknown) (unknown) Hgb (13.5-17.5) (units (unknown) date) g/dL unknown) (unknown) (no (unknown) (unknown) Hgb 15.6 (units (unkn own) date) (13.5-17.5) g/dL unknown) (unknown) (no (unknown) (unknown) History of Present (units (unknown) date) Illness unknown) (unknown) (no (unknown) (unknown) History of aortic (units (unknown) date) dissection unknown) () (unknown) (no (unknown) (unknown) History of (units (unk nown) date) arthroplasty of unknown) right knee (unknown) (no (unknown) (unknown) 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 (unknown) (no (unknown) (unknown) History of cardiac (units (unknown) date) cath () unknown) (unknown) (no (unknown) (unknown) History of (units (unk nown) date) esophageal surgery unknown) (unknown) (no (unknown) (unknown) History of (units (unk nown) date) incision and unknown) drainage (-2016) (unknown) (no (unknown) (unknown) History of prior (units (unknown) date) ablation treatment unknown) () (unknown) (no (unknown) (unknown) History of surgery (units (unknown) date) unknown) (unknown) (no (unknown) (unknown) Vidal,Ronni (units (unk nown) date) unknown) (unknown) (no (unknown) (unknown) Hx of (units (unkno wn) date) cholecystectomy unknown) (unknown) (no (unknown) (unknown) Hx of hernia (units (u nknown) date) repair unknown) (unknown) (no (unknown) (unknown) Hx of sinus (units (un known) date) surgery unknown) (unknown) (no (unknown) (unknown) Hydralazine HCl (units (unknown) date) (Hydralazine 20 unknown) Mg/Ml Vial) 10 mg IV NOW ONE (unknown) (no (unknown) (unknown) Hydromorphone HCl (units (unknown) date) (Hydromorphone 0.5 unknown) Mg Inj) 0.5 mg IV NOW ONE (unknown) (no (unknown) (unknown) Hypertension (units (u nknown) date) unknown) (unknown) (no (unknown) (unknown) IMPRESSION:? (units (u nknown) date) unknown) (unknown) (no (unknown) (unknown) INDICATIONS:? (units ( unknown) date) trauma unknown) (unknown) (no (unknown) (unknown) INHIBITOR] (units (unk nown) date) unknown) (unknown) (no (unknown) (unknown) Image quality:? (units (unknown) date) Excellent.? unknown) (unknown) (no (unknown) (unknown) Image quality:? (units (unknown) date) There is motion unknown) artifact limiting evaluation.? (unknown) (no (unknown) (unknown) Imaging Data (units (u nknown) date) unknown) (unknown) (no (unknown) (unknown) Inhibitor (units (unkn own) date) MUSCLES unknown) (unknown) (no (unknown) (unknown) Initial Vital (units ( unknown) date) Signs unknown) (unknown) (no (unknown) (unknown) Initial Vital (units ( unknown) date) Signs: unknown) (unknown) (no (unknown) (unknown) Ischemic (units (unkno wn) date) cardiomyopathy unknown) (unknown) (no (unknown) (unknown) Theodore,Tl (units (unknown) date) unknown) (unknown) (no (unknown) (unknown) Ashley,Bharath (units ( unknown) date) unknown) (unknown) (no (unknown) (unknown) Knee X-Ray (units (unk nown) date) (Signed) unknown) (unknown) (no (unknown) (unknown) Lab Data (units (unkno wn) date) unknown) (unknown) (no (unknown) (unknown) Labs: (units (unkno wn) date) unknown) (unknown) (no (unknown) (unknown) Lactate (units (unkno wn) date) (0.7-2.1) mmol/L unknown) (unknown) (no (unknown) (unknown) Lactate 2.3 H (units (unknown) date) (0.7-2.1) mmol/L unknown) (unknown) (no (unknown) (unknown) Lactate 1.5 (units ( unknown) date) (0.7-2.1) mmol/L unknown) (unknown) (no (unknown) (unknown) Lactate (Lactic (units (unknown) date) Acid) Stat unknown) (unknown) (no (unknown) (unknown) Lisinopril (units (unk nown) date) (Lisinopril 20 Mg unknown) Tablet) 20 mg PO NOW ONE (unknown) (no (unknown) (unknown) Satish Jarrett (units (unkno wn) date) unknown) (unknown) (no (unknown) (unknown) Loc: ED (units (unkno wn) date) unknown) (unknown) (no (unknown) (unknown) Lumbar Spine MRI (units (unknown) date) (Signed) unknown) (unknown) (no (unknown) (unknown) Lymph # (Auto) (units (unknown) date) (5571-1623) /uL unknown) (unknown) (no (unknown) (unknown) Lymph # (Auto) (units (unknown) date) (9019-2010) /uL unknown) (unknown) (no (unknown) (unknown) Lymph # (Auto) (units (unknown) date) 1700 (0136-2779) unknown) /uL (unknown) (no (unknown) (unknown) Lymph % (Auto) (units (unknown) date) (25-40) % unknown) (unknown) (no (unknown) (unknown) Lymph % (Auto) (units (unknown) date) (25-40) % unknown) (unknown) (no (unknown) (unknown) Lymph % (Auto) (units (unknown) date) 23.0 L (25-40) unknown) % (unknown) (no (unknown) (unknown) MCH (26-34) (units (unknown) date) PG unknown) (unknown) (no (unknown) (unknown) MCH (26-34) PG (units (unknown) date) unknown) (unknown) (no (unknown) (unknown) MCH 31.7 (units (unkn own) date) (26-34) PG unknown) (unknown) (no (unknown) (unknown) MCHC (30-36) (units (unknown) date) % unknown) (unknown) (no (unknown) (unknown) MCHC (30-36) % (units (unknown) date) unknown) (unknown) (no (unknown) (unknown) MCHC 34.0 (units (unk nown) date) (30-36) % unknown) (unknown) (no (unknown) (unknown) MCV (80-100) (units (unknown) date) fL unknown) (unknown) (no (unknown) (unknown) MCV (80-100) (units (unknown) date) fL unknown) (unknown) (no (unknown) (unknown) MCV 93.3 (units (unkn own) date) (80-100) fL unknown) (unknown) (no (unknown) (unknown) MDM - Fall (units (unk nown) date) unknown) (unknown) (no (unknown) (unknown) MR#: [id number] (units (unknown) date) unknown) (unknown) (no (unknown) (unknown) MUSCULOSKELETAL: (units (unknown) date) See HPI unknown) (unknown) (no (unknown) (unknown) Medical History (units (unknown) date) (Reviewed 12/08/21 unknown) @ 01:57 by Jung Dejesus DO) (unknown) (no (unknown) (unknown) Cheryl Husain (units (unknown) date) unknown) (unknown) (no (unknown) (unknown) Metoprolol (units (unk nown) date) Tartrate unknown) (Metoprolol Ir 25 Mg Tablet) 100 mg PO NOW ONE (unknown) (no (unknown) (unknown) Mode of arrival: (units (unknown) date) EMS unknown) (unknown) (no (unknown) (unknown) [place] # (Auto) (units ( unknown) date) (0-900) /uL unknown) (unknown) (no (unknown) (unknown) [place] # (Auto) (units ( unknown) date) (0-900) /uL unknown) (unknown) (no (unknown) (unknown) [place] # (Auto) 700 (units (unknown) date) (0-900) /uL unknown) (unknown) (no (unknown) (unknown) [place] % (Auto) (units ( unknown) date) (3-14) % unknown) (unknown) (no (unknown) (unknown) [place] % (Auto) (units ( unknown) date) (3-14) % unknown) (unknown) (no (unknown) (unknown) [place] % (Auto) 9.5 (units (unknown) date) (3-14) % unknown) (unknown) (no (unknown) (unknown) Mother (units (unknown) date) Stroke unknown) (unknown) (no (unknown) (unknown) NECK: Trachea (units ( unknown) date) midline. Non tender unknown) (unknown) (no (unknown) (unknown) NEURO: Cranial (units (unknown) date) nerves 2-12 grossly unknown) intact (unknown) (no (unknown) (unknown) NEUROLOGIC: Denies (units (unknown) date) weakness, headache, unknown) numbness, change in speech, confusion, (unknown) (no (unknown) (unknown) NOW ONE (units (unkno wn) date) unknown) (unknown) (no (unknown) (unknown) Narcotic (units (unkno wn) date) dependence unknown) (unknown) (no (unknown) (unknown) Narrative (units (unkn own) date) unknown) (unknown) (no (unknown) (unknown) Narrative: (units (unk nown) date) unknown) (unknown) (no (unknown) (unknown) Neck pain, chronic (units (unknown) date) unknown) (unknown) (no (unknown) (unknown) Neut # (Auto) (units ( unknown) date) (9365-7230) /uL unknown) (unknown) (no (unknown) (unknown) Neut # (Auto) (units ( unknown) date) (5482-5544) /uL unknown) (unknown) (no (unknown) (unknown) Neut # (Auto) (units ( unknown) date) 4800 (0225-5485) unknown) /uL (unknown) (no (unknown) (unknown) Neut % (Auto) (units ( unknown) date) (50-75) % unknown) (unknown) (no (unknown) (unknown) Neut % (Auto) (units ( unknown) date) (50-75) % unknown) (unknown) (no (unknown) (unknown) Neut % (Auto) (units ( unknown) date) 64.7 (50-75) % unknown) (unknown) (no (unknown) (unknown) No Action (units (unkn own) date) unknown) (unknown) (no (unknown) (unknown) No scleral (units (unk nown) date) icterus. No unknown) injection or drainage. (unknown) (no (unknown) (unknown) Noncontrast 3 mm (units (unknown) date) thick sections unknown) acquired from the skull base to the T4 level.? (unknown) (no (unknown) (unknown) Noncontrast 4.5 mm (units (unknown) date) thick angled axial unknown) sections acquired from the foramen magnum (unknown) (no (unknown) (unknown) Ondansetron HCl (units (unknown) date) (Ondansetron 4 Mg/2 unknown) Ml Inj) 4 mg IV NOW ONE (unknown) (no (unknown) (unknown) Ordered: (units (unkno wn) date) unknown) (unknown) (no (unknown) (unknown) Ordering Provider: (units (unknown) date) Jung Dejesus D.O. unknown) (unknown) (no (unknown) (unknown) Orders (units (unkno wn) date) unknown) (unknown) (no (unknown) (unknown) PROCEDURE:? CT (units (unknown) date) CERVICAL SPINE WO unknown) CON (unknown) (no (unknown) (unknown) PROCEDURE:? CT (units (unknown) date) HEAD/BRAIN WO CON unknown) (unknown) (no (unknown) (unknown) PSYCHIATRIC: No (units (unknown) date) concerning unknown) psychosocial issues. (unknown) (no (unknown) (unknown) Pantoprazole (units (u nknown) date) Sodium unknown) (Pantoprazole 40 Mg Vial) 40 mg IV NOW ONE (unknown) (no (unknown) (unknown) Patient History (units (unknown) date) unknown) (unknown) (no (unknown) (unknown) Patient getting (units (unknown) date) shaky, sweaty, unknown) tachycardic, HTN, sweaty, and developing N/V/D. (unknown) (no (unknown) (unknown) Patient observed (units (unknown) date) for some time unknown) before labs added. He has continued to have a (unknown) (no (unknown) (unknown) Patient: (units (unkno wn) date) Dominic Viveros unknown) MR#: M (unknown) (no (unknown) (unknown) Patient: (units (unkno wn) date) JackelineDominic Jaquez unknown) (unknown) (no (unknown) (unknown) ValadezMaxim more (units (un known) date) unknown) (unknown) (no (unknown) (unknown) Phenobarbital (units ( unknown) date) (Phenobarbital 65 unknown) Mg/Ml Vial) 260 mg IV NOW ONE (unknown) (no (unknown) (unknown) Potassium (units (unkn own) date) (3.4-5.1) mmol/L unknown) (unknown) (no (unknown) (unknown) Potassium (units (unkn own) date) (3.4-5.1) mmol/L unknown) (unknown) (no (unknown) (unknown) Potassium 4.5 (units (unknown) date) (3.4-5.1) mmol/L unknown) (unknown) (no (unknown) (unknown) Prescriptions: (units (unknown) date) unknown) (unknown) (no (unknown) (unknown) Procedure: CT (units ( unknown) date) cervical spine wo unknown) con (unknown) (no (unknown) (unknown) Procedure: CT (units ( unknown) date) head/brain wo con unknown) (unknown) (no (unknown) (unknown) Prolactin (units (unkn own) date) (3.7-17.9) ng/mL unknown) (unknown) (no (unknown) (unknown) Prolactin (units (unkn own) date) (3.7-17.9) ng/mL unknown) (unknown) (no (unknown) (unknown) Prolactin 18.9 H (units (unknown) date) (3.7-17.9) ng/mL unknown) (unknown) (no (unknown) (unknown) Prolactin Stat (units (unknown) date) unknown) (unknown) (no (unknown) (unknown) Pulse Oximetry 92 (units (unknown) date) 12/07/21 20:23 unknown) (unknown) (no (unknown) (unknown) Pulse Oximetry 96 (units (unknown) date) 93 unknown) (unknown) (no (unknown) (unknown) Pulse Oximetry 92 (units (unknown) date) 96 unknown) (unknown) (no (unknown) (unknown) Pulse Rate 67 66 (units (unknown) date) unknown) (unknown) (no (unknown) (unknown) Pulse Rate 88 (units (unknown) date) 12/07/21 20:23 unknown) (unknown) (no (unknown) (unknown) Pulse Rate 64 68 (units (unknown) date) 69 unknown) (unknown) (no (unknown) (unknown) RDW (units (unkno wn) date) (11.6-14.8) % unknown) (unknown) (no (unknown) (unknown) RDW (11.6-14.8) (units (unknown) date) % unknown) (unknown) (no (unknown) (unknown) RDW 13.7 (units (unkn own) date) (11.6-14.8) % unknown) (unknown) (no (unknown) (unknown) RESPIRATORY: Clear (units (unknown) date) to auscultation. unknown) Breath sounds equal bilaterally. No wheezes, (unknown) (no (unknown) (unknown) RESPIRATORY: (units (u nknown) date) Denies dyspnea, unknown) cough, wheezing, hemoptysis, sputum. (unknown) (no (unknown) (unknown) Dominic Viveros (units (unknown) date) D??76??M?? unknown) 5 (unknown) (no (unknown) (unknown) Reevaluation #1: (units (unknown) date) unknown) (unknown) (no (unknown) (unknown) Reevaluation #2: (units (unknown) date) unknown) (unknown) (no (unknown) (unknown) Reevaluation(s) (units (unknown) date) unknown) (unknown) (no (unknown) (unknown) Referrals: (units (unk nown) date) unknown) (unknown) (no (unknown) (unknown) Related Data (units (u nknown) date) unknown) (unknown) (no (unknown) (unknown) Respiratory Rate (units (unknown) date) 17 19 unknown) (unknown) (no (unknown) (unknown) Respiratory Rate (units (unknown) date) 22 12/07/21 20:23 unknown) (unknown) (no (unknown) (unknown) Respiratory Rate (units (unknown) date) 18 18 20 unknown) (unknown) (no (unknown) (unknown) Result diagrams: (units (unknown) date) unknown) (unknown) (no (unknown) (unknown) Review of Systems (units (unknown) date) unknown) (unknown) (no (unknown) (unknown) Emeka Robertson (units (unknown) date) unknown) (unknown) (no (unknown) (unknown) Sudarshan Calderon (units (u nknown) date) unknown) (unknown) (no (unknown) (unknown) S/P CABG x 3 (units (u nknown) date) () unknown) (unknown) (no (unknown) (unknown) S/P cervical (units (u nknown) date) spinal fusion unknown) (unknown) (no (unknown) (unknown) S/P lumbar fusion (units (unknown) date) unknown) (unknown) (no (unknown) (unknown) SARS-CoV-2 (PCR) (units (unknown) date) (Negative) unknown) (unknown) (no (unknown) (unknown) SARS-CoV-2 (PCR) (units (unknown) date) (Negative) unknown) (unknown) (no (unknown) (unknown) SARS-CoV-2 (PCR) (units (unknown) date) Negative unknown) (Negative) (unknown) (no (unknown) (unknown) SKIN: Denies rash, (units (unknown) date) skin lesions, or unknown) other (unknown) (no (unknown) (unknown) SKIN: No rash or (units (unknown) date) erythema of visible unknown) areas (unknown) (no (unknown) (unknown) Sagittal (units (unkno wn) date) unknown) (unknown) (no (unknown) (unknown) Salicylate Stat (units (unknown) date) unknown) (unknown) (no (unknown) (unknown) Salicylates (units (un known) date) (<20) mg/dL unknown) (unknown) (no (unknown) (unknown) Salicylates (units (un known) date) (<20) mg/dL unknown) (unknown) (no (unknown) (unknown) Salicylates < (units (unknown) date) 1.0 (<20) mg/dL unknown) (unknown) (no (unknown) (unknown) Signed By: (units (unk nown) date) unknown) (unknown) (no (unknown) (unknown) Sinuses:? (units (unkn own) date) Visualized sinuses unknown) redemonstrate wall thickening and mucoperiosteal (unknown) (no (unknown) (unknown) Skull and face:? (units (unknown) date) Calvarium and unknown) visualized facial bones appear intact, without (unknown) (no (unknown) (unknown) Smoking Status: (units (unknown) date) Former smoker unknown) (unknown) (no (unknown) (unknown) Smoking Status: (units (unknown) date) Former smoker unknown) (unknown) (no (unknown) (unknown) Social History (units (unknown) date) (Reviewed 12/08/21 unknown) @ 01:57 by Jung Dejesus DO) (unknown) (no (unknown) (unknown) Sodium (units (unkno wn) date) (137-145) mmol/L unknown) (unknown) (no (unknown) (unknown) Sodium (units (unkno wn) date) (137-145) mmol/L unknown) (unknown) (no (unknown) (unknown) Sodium 140 (units (u nknown) date) (137-145) mmol/L unknown) (unknown) (no (unknown) (unknown) Sodium Chloride (units (unknown) date) (Normal Saline unknown) 0.9%) 1,000 mls @ 150 mls/hr IV CONT BLOSSOM (unknown) (no (unknown) (unknown) Soft tissues:? (units (unknown) date) Prevertebral soft unknown) tissues are normal in thickness.? No (unknown) (no (unknown) (unknown) Source: patient, (units (unknown) date) family and EMS unknown) (unknown) (no (unknown) (unknown) Stated Complaint: (units (unknown) date) Back Pain unknown) (unknown) (no (unknown) (unknown) [id number] (units (unknown) date) Reductase AdvReac unknown) Mild WEAK Verified 11/28/21 15:33 (unknown) (no (unknown) (unknown) Strong concern (units (unknown) date) that he is unknown) developing withdrawals though he denies frequent (unknown) (no (unknown) (unknown) Substance Use (units ( unknown) date) Type: does not use unknown) (unknown) (no (unknown) (unknown) Sulfa (Sulfonamide (units (unknown) date) Allergy Mild RASH unknown) Verified 11/28/21 15:33 (unknown) (no (unknown) (unknown) Surgical History (units (unknown) date) (Reviewed 12/08/21 unknown) @ 01:57 by Jung Dejesus DO) (unknown) (no (unknown) (unknown) Andre Spear (units ( unknown) date) unknown) (unknown) (no (unknown) (unknown) TECHNIQUE:? (units (un known) date) unknown) (unknown) (no (unknown) (unknown) TSH (units (unkno wn) date) (0.47-4.68) uIU/mL unknown) (unknown) (no (unknown) (unknown) TSH (0.47-4.68) (units (unknown) date) uIU/mL unknown) (unknown) (no (unknown) (unknown) TSH 2.07 (units (unkn own) date) (0.47-4.68) uIU/mL unknown) (unknown) (no (unknown) (unknown) Telemetry Strips (units (unknown) date) unknown) (unknown) (no (unknown) (unknown) Temperature (units (un known) date) unknown) (unknown) (no (unknown) (unknown) Temperature 97.4 (units (unknown) date) F L 12/07/21 20:23 unknown) (unknown) (no (unknown) (unknown) Temperature 97.8 (units (unknown) date) F unknown) (unknown) (no (unknown) (unknown) There is a small (units (unknown) date) right choroidal unknown) fissure cyst redemonstrated.? (unknown) (no (unknown) (unknown) There is mild (units ( unknown) date) cerebral volume unknown) loss, with resultant ventricular and sulcal (unknown) (no (unknown) (unknown) Thyroid (units (unkno wn) date) Stimulating Hormone unknown) Stat (unknown) (no (unknown) (unknown) Tibia/Fibula X-Ray (units (unknown) date) (Signed) unknown) (unknown) (no (unknown) (unknown) Time Seen by (units (u nknown) date) Provider: 12/07/21 unknown) 20:22 (unknown) (no (unknown) (unknown) Time: 06:09 (units (un known) date) unknown) (unknown) (no (unknown) (unknown) Total Bilirubin (units (unknown) date) (0.2-1.3) mg/dL unknown) (unknown) (no (unknown) (unknown) Total Bilirubin (units (unknown) date) (0.2-1.3) mg/dL unknown) (unknown) (no (unknown) (unknown) Total Bilirubin (units (unknown) date) 0.9 (0.2-1.3) unknown) mg/dL (unknown) (no (unknown) (unknown) Total Protein (units ( unknown) date) (6.3-8.2) g/dL unknown) (unknown) (no (unknown) (unknown) Total Protein (units ( unknown) date) (6.3-8.2) g/dL unknown) (unknown) (no (unknown) (unknown) Total Protein (units ( unknown) date) 7.0 (6.3-8.2) unknown) g/dL (unknown) (no (unknown) (unknown) U Benzodiazepines (units (unknown) date) Scrn (Negative) unknown) (unknown) (no (unknown) (unknown) U Benzodiazepines (units (unknown) date) Scrn Positive H unknown) (Negative) (unknown) (no (unknown) (unknown) U Marijuana (THC) (units (unknown) date) Screen unknown) (Negative) (unknown) (no (unknown) (unknown) U Marijuana (THC) (units (unknown) date) Screen Negative unknown) (Negative) (unknown) (no (unknown) (unknown) U Methamphetamines (units (unknown) date) Scrn (Negative) unknown) (unknown) (no (unknown) (unknown) U Methamphetamines (units (unknown) date) Scrn Negative unknown) (Negative) (unknown) (no (unknown) (unknown) U Opiates 300ng/mL (units (unknown) date) cut (Negative) unknown) (unknown) (no (unknown) (unknown) U Opiates 300ng/mL (units (unknown) date) cut Positive H unknown) (Negative) (unknown) (no (unknown) (unknown) U Tricyclic (units (un known) date) Antidepress unknown) (Negative) (unknown) (no (unknown) (unknown) U Tricyclic (units (un known) date) Antidepress unknown) Negative (Negative) (unknown) (no (unknown) (unknown) Ur Amphetamines (units (unknown) date) Screen unknown) (Negative) (unknown) (no (unknown) (unknown) Ur Amphetamines (units (unknown) date) Screen Negative unknown) (Negative) (unknown) (no (unknown) (unknown) Ur Barbiturates (units (unknown) date) Screen unknown) (Negative) (unknown) (no (unknown) (unknown) Ur Barbiturates (units (unknown) date) Screen Negative unknown) (Negative) (unknown) (no (unknown) (unknown) Ur Culture (units (unk nown) date) Indicated? unknown) (unknown) (no (unknown) (unknown) Ur Culture (units (unk nown) date) Indicated? unknown) (unknown) (no (unknown) (unknown) Ur Culture (units (unk nown) date) Indicated? Cult unknown) not indicated (unknown) (no (unknown) (unknown) Ur Leukocyte (units (u nknown) date) Esterase unknown) (NEGATIVE) (unknown) (no (unknown) (unknown) Ur Leukocyte (units (u nknown) date) Esterase unknown) (NEGATIVE) (unknown) (no (unknown) (unknown) Ur Leukocyte (units (u nknown) date) Esterase unknown) Negative (NEGATIVE) (unknown) (no (unknown) (unknown) Ur MDMA Scrn (units (u nknown) date) (Ecstasy) unknown) (Negative) (unknown) (no (unknown) (unknown) Ur MDMA Scrn (units (u nknown) date) (Ecstasy) Negative unknown) (Negative) (unknown) (no (unknown) (unknown) Ur Oxycodone (units (u nknown) date) Screen unknown) (Negative) (unknown) (no (unknown) (unknown) Ur Oxycodone (units (u nknown) date) Screen Negative unknown) (Negative) (unknown) (no (unknown) (unknown) Ur Phencyclidine (units (unknown) date) Scrn (Negative) unknown) (unknown) (no (unknown) (unknown) Ur Phencyclidine (units (unknown) date) Scrn Negative unknown) (Negative) (unknown) (no (unknown) (unknown) Ur Specific (units (un known) date) Falcon unknown) (1.000-1.035) (unknown) (no (unknown) (unknown) Ur Specific (units (un known) date) Falcon unknown) (1.000-1.035) (unknown) (no (unknown) (unknown) Ur Specific (units (un known) date) Falcon 1.020 unknown) (1.000-1.035) (unknown) (no (unknown) (unknown) Ur Squamous Epith (units (unknown) date) Cells (0-5/HPF) unknown) (unknown) (no (unknown) (unknown) Ur Squamous Epith (units (unknown) date) Cells (0-5/HPF) unknown) (unknown) (no (unknown) (unknown) Ur Squamous Epith (units (unknown) date) Cells 0-1 /hpf unknown) (0-5/HPF) (unknown) (no (unknown) (unknown) Urinalysis and (units (unknown) date) Microscopic Stat unknown) (unknown) (no (unknown) (unknown) Urine Appearance (units (unknown) date) unknown) (unknown) (no (unknown) (unknown) Urine Appearance (units (unknown) date) unknown) (unknown) (no (unknown) (unknown) Urine Appearance (units (unknown) date) Clear unknown) (unknown) (no (unknown) (unknown) Urine Bacteria (units (unknown) date) (None) unknown) (unknown) (no (unknown) (unknown) Urine Bacteria (units (unknown) date) (None) unknown) (unknown) (no (unknown) (unknown) Urine Bacteria (units (unknown) date) None seen (None) unknown) (unknown) (no (unknown) (unknown) Urine Bilirubin (units (unknown) date) (NEGATIVE) unknown) (unknown) (no (unknown) (unknown) Urine Bilirubin (units (unknown) date) (NEGATIVE) unknown) (unknown) (no (unknown) (unknown) Urine Bilirubin (units (unknown) date) Negative unknown) (NEGATIVE) (unknown) (no (unknown) (unknown) Urine Cocaine (units ( unknown) date) Screen unknown) (Negative) (unknown) (no (unknown) (unknown) Urine Cocaine (units ( unknown) date) Screen Negative unknown) (Negative) (unknown) (no (unknown) (unknown) Urine Color (units (un known) date) unknown) (unknown) (no (unknown) (unknown) Urine Color (units (un known) date) unknown) (unknown) (no (unknown) (unknown) Urine Color (units (un known) date) Yellow unknown) (unknown) (no (unknown) (unknown) Urine Drug Screen, (units (unknown) date) Rapid Stat unknown) (unknown) (no (unknown) (unknown) Urine Glucose (UA) (units (unknown) date) (Negative) unknown) g/dL (unknown) (no (unknown) (unknown) Urine Glucose (UA) (units (unknown) date) (Negative) g/dL unknown) (unknown) (no (unknown) (unknown) Urine Glucose (UA) (units (unknown) date) Negative unknown) (Negative) g/dL (unknown) (no (unknown) (unknown) Urine Ketones (units ( unknown) date) (NEGATIVE) unknown) (unknown) (no (unknown) (unknown) Urine Ketones (units ( unknown) date) (NEGATIVE) unknown) (unknown) (no (unknown) (unknown) Urine Ketones (units ( unknown) date) Trace H (NEGATIVE) unknown) (unknown) (no (unknown) (unknown) Urine Methadone (units (unknown) date) Screen unknown) (Negative) (unknown) (no (unknown) (unknown) Urine Methadone (units (unknown) date) Screen Negative unknown) (Negative) (unknown) (no (unknown) (unknown) Urine Nitrate (units ( unknown) date) (Negative) unknown) (unknown) (no (unknown) (unknown) Urine Nitrate (units ( unknown) date) (Negative) unknown) (unknown) (no (unknown) (unknown) Urine Nitrate (units ( unknown) date) Negative unknown) (Negative) (unknown) (no (unknown) (unknown) Urine Occult Blood (units (unknown) date) (Negative) unknown) (unknown) (no (unknown) (unknown) Urine Occult Blood (units (unknown) date) (Negative) unknown) (unknown) (no (unknown) (unknown) Urine Occult Blood (units (unknown) date) Negative unknown) (Negative) (unknown) (no (unknown) (unknown) Urine Protein (units ( unknown) date) (Negative) unknown) (unknown) (no (unknown) (unknown) Urine Protein (units ( unknown) date) (Negative) unknown) (unknown) (no (unknown) (unknown) Urine Protein (units ( unknown) date) Negative unknown) (Negative) (unknown) (no (unknown) (unknown) Urine RBC (units (unkn own) date) (0-5/HPF) unknown) (unknown) (no (unknown) (unknown) Urine RBC (units (unkn own) date) (0-5/HPF) unknown) (unknown) (no (unknown) (unknown) Urine RBC None (units (unknown) date) seen (0-5/HPF) unknown) (unknown) (no (unknown) (unknown) Urine Urobilinogen (units (unknown) date) (0.2) E.U./dL unknown) (unknown) (no (unknown) (unknown) Urine Urobilinogen (units (unknown) date) (0.2) E.U./dL unknown) (unknown) (no (unknown) (unknown) Urine Urobilinogen (units (unknown) date) 0.2 (0.2) unknown) E.U./dL (unknown) (no (unknown) (unknown) Urine WBC (units (unkn own) date) (0-5/HPF) unknown) (unknown) (no (unknown) (unknown) Urine WBC (units (unkn own) date) (0-5/HPF) unknown) (unknown) (no (unknown) (unknown) Urine WBC None (units (unknown) date) seen (0-5/HPF) unknown) (unknown) (no (unknown) (unknown) Urine pH (units (unkno wn) date) (4.5-8.0) unknown) (unknown) (no (unknown) (unknown) Urine pH (units (unkno wn) date) (4.5-8.0) unknown) (unknown) (no (unknown) (unknown) Urine pH 5.0 (units (unknown) date) (4.5-8.0) unknown) (unknown) (no (unknown) (unknown) Vascular (units (unkno wn) date) Ultrasound (Signed) unknown) (unknown) (no (unknown) (unknown) Ventricular (units (un known) date) bigeminy unknown) (unknown) (no (unknown) (unknown) Vital Signs (units (un known) date) unknown) (unknown) (no (unknown) (unknown) Vital signs: (units (u nknown) date) unknown) (unknown) (no (unknown) (unknown) Charles,Lexx (units (u nknown) date) unknown) (unknown) (no (unknown) (unknown) [Embedded Image (units (unknown) date) Not Available] unknown) (unknown) (no (unknown) (unknown) [[id number] (units (unknown) date) REDUCTASE unknown) (unknown) (no (unknown) (unknown) [SULFA (units (unkno wn) date) (SULFONAMIDE unknown) (unknown) (no (unknown) (unknown) acetaminophen 300 (units (unknown) date) mg-codeine 30 mg 1 unknown) tab PO Q6HR PRN 10/08/21 10/08/21 (unknown) (no (unknown) (unknown) acetaminophen 325 (units (unknown) date) mg tablet 650 mg PO unknown) Q6H PRN #60 tab 11/06/20 (unknown) (no (unknown) (unknown) agree for admit. (units (unknown) date) At this time unknown) nighttime hospitalist is aware and signing out to (unknown) (no (unknown) (unknown) albuterol sulfate (units (unknown) date) 1.25 mg/3 mL 2.5 mg unknown) (6 mL) INHALATION QID #90 ml 11/28/21 (unknown) (no (unknown) (unknown) alcohol intake (units (unknown) date) frequency: unknown) holidays/special occasions only (unknown) (no (unknown) (unknown) alcohol intake: (units (unknown) date) current unknown) (unknown) (no (unknown) (unknown) and coronal (units (un known) date) reformats were then unknown) constructed.? For radiation dose reduction, the (unknown) (no (unknown) (unknown) and shape.? (units (un known) date) unknown) (unknown) (no (unknown) (unknown) appears (units (unkno wn) date) preserved.? There unknown) is intracranial internal carotid artery (unknown) (no (unknown) (unknown) approximately 0.2 (units (unknown) date) cm. unknown) (unknown) (no (unknown) (unknown) approximately 0.4 (units (unknown) date) cm and minimal unknown) anterolisthesis at C3-C4 measuring (unknown) (no (unknown) (unknown) arthropathy (units (un known) date) throughout the unknown) cervical spine.? Visualized superior ribs are (unknown) (no (unknown) (unknown) atherosclerosis.? (units (unknown) date) unknown) (unknown) (no (unknown) (unknown) benzonatate 100 mg (units (unknown) date) capsule 100 mg PO unknown) TID PRN #14 cap 03/05/21 (unknown) (no (unknown) (unknown) buprenorphine (units ( unknown) date) [BUPRENORPHINE] unknown) AdvReac Mild NAUSEA, Verified 11/28/21 15:33 (unknown) (no (unknown) (unknown) buprenorphine, (units (unknown) date) hyoscyamine, unknown) [id number] Reductase Inhibitor, diazepam (unknown) (no (unknown) (unknown) cefdinir 300 mg (units (unknown) date) capsule 300 mg PO unknown) BID #20 cap 10/09/21 (unknown) (no (unknown) (unknown) celecoxib (units (unkn own) date) [CELECOXIB] Allergy unknown) Mild SWELLING Verified 11/28/21 15:33 (unknown) (no (unknown) (unknown) cetirizine 10 mg (units (unknown) date) capsule (Zyrtec) 10 unknown) mg PO DAILY 05/22/19 10/08/21 (unknown) (no (unknown) (unknown) chronic back pain, (units (unknown) date) ataxia, AFib, COPD unknown) presents for evaluation of a witnessed (unknown) (no (unknown) (unknown) chronic sinusitis. (units (unknown) date) unknown) (unknown) (no (unknown) (unknown) constipation, (units ( unknown) date) melena. unknown) (unknown) (no (unknown) (unknown) consumed a large (units (unknown) date) amount of alcohol unknown) tonight in addition to many other medications (unknown) (no (unknown) (unknown) contusion, (units (unk nown) date) laceration, unknown) hematoma or evidence of depressed skull fracture (unknown) (no (unknown) (unknown) degeneration also (units (unknown) date) demonstrated at unknown) C2-C3 and C3-C4.? There is multilevel moderate (unknown) (no (unknown) (unknown) degenerative disc (units (unknown) date) disease within the unknown) visualized upper thoracic spine.? Mild disc (unknown) (no (unknown) (unknown) diazepam [From (units (unknown) date) Valium] AdvReac unknown) Confusion Verified 11/28/21 15:33 (unknown) (no (unknown) (unknown) diclofenac sodium (units (unknown) date) 1 % topical gel 2 g unknown) TOPICAL QID #100 g 11/19/21 (unknown) (no (unknown) (unknown) difficult time (units ( unknown) date) ambulating and is unknown) unsafe to discharge at this time. His has (unknown) (no (unknown) (unknown) drinking. (units (unkn own) date) Phenobarb ordered unknown) and moved to room with monitor (unknown) (no (unknown) (unknown) ferrous sulfate (units (unknown) date) 325 mg (65 mg 325 unknown) mg PO DAILY 10/19/19 10/08/21 (unknown) (no (unknown) (unknown) fluticasone (units (un known) date) propionate 50 1 unknown) spray INTRANASAL DAILY PRN #0 11/02/17 10/08/21 (unknown) (no (unknown) (unknown) following (units (unkn own) date) unknown) (unknown) (no (unknown) (unknown) furosemide 40 mg (units (unknown) date) tablet (Lasix) 40 unknown) mg PO DAILY 10/08/21 10/08/21 (unknown) (no (unknown) (unknown) glipizide 2.5 mg (units (unknown) date) tablet, extended unknown) 2.5 mg PO DAILY 10/08/21 10/08/21 (unknown) (no (unknown) (unknown) ground level fall. (units (unknown) date) He stumbled and unknown) fell forward, striking his nose. There was (unknown) (no (unknown) (unknown) hand (units (unkno wn) date) unknown) (unknown) (no (unknown) (unknown) hematomas.? No (units (unknown) date) apical unknown) pneumothoraces.? (unknown) (no (unknown) (unknown) household members: (units (unknown) date) spouse unknown) (unknown) (no (unknown) (unknown) hyoscyamine (units (un known) date) [HYOSCYAMINE] unknown) AdvReac Mild LEG Verified 11/28/21 15:33 (unknown) (no (unknown) (unknown) intact.? (units (unkno wn) date) unknown) (unknown) (no (unknown) (unknown) iron) (units (unkno wn) date) tablet,delayed unknown) release (unknown) (no (unknown) (unknown) latex [LATEX] (units ( unknown) date) Allergy Mild RASH unknown) Verified 11/28/21 15:33 (unknown) (no (unknown) (unknown) lesions.? (units (unkn own) date) unknown) (unknown) (no (unknown) (unknown) levalbuterol HCl (units (unknown) date) 1.25 mg/3 mL 3 ml unknown) INHALATION Q6H PRN 10/16/18 10/08/21 (unknown) (no (unknown) (unknown) levalbuterol (units (u nknown) date) tartrate 45 1 puff unknown) INHALATION Q4-6H PRN #15 06/22/18 (unknown) (no (unknown) (unknown) mastoid air cells (units (unknown) date) are clear. unknown) (unknown) (no (unknown) (unknown) mcg/actuation (units ( unknown) date) aerosol inhaler unknown) gram (unknown) (no (unknown) (unknown) mcg/actuation (units ( unknown) date) nasal unknown) (unknown) (no (unknown) (unknown) measuring (units (unkn own) date) unknown) (unknown) (no (unknown) (unknown) meclizine 25 mg (units (unknown) date) tablet 25 mg PO QID unknown) PRN #30 tab 10/09/21 (unknown) (no (unknown) (unknown) methocarbamol 500 (units (unknown) date) mg tablet 500 mg PO unknown) Q8H PRN #14 tab 11/19/21 (unknown) (no (unknown) (unknown) metoprolol (units (unk nown) date) tartrate 100 mg unknown) tablet 100 mg PO BID 10/16/18 10/08/21 (unknown) (no (unknown) (unknown) mg tablet (units (unkn own) date) (Percocet) unknown) (unknown) (no (unknown) (unknown) mild distress. (units (unknown) date) GCS 15, smells of unknown) alcohol and slurring his words (unknown) (no (unknown) (unknown) moderate (units (unkno wn) date) unknown) (unknown) (no (unknown) (unknown) multiple levels as (units (unknown) date) described. unknown) (unknown) (no (unknown) (unknown) multivitamin (units (u nknown) date) (Multiple Vitamins) unknown) 1 tab PO DAILY #0 12/20/16 10/08/21 (unknown) (no (unknown) (unknown) no loss of (units (unk nown) date) consciousness and unknown) he has had no nausea or vomiting. He denies any (unknown) (no (unknown) (unknown) other injuries (units (unknown) date) such as neck, back unknown) or extremities. His states that he (unknown) (no (unknown) (unknown) oxycodone 5 mg (units (unknown) date) tablet 10 mg PO unknown) Q4-5H PRN #60 tab 11/06/20 (unknown) (no (unknown) (unknown) oxycodone-acetamin (units (unknown) date) ophen 5 mg-325 1 unknown) tab PO Q8H PRN #10 tab 11/19/21 (unknown) (no (unknown) (unknown) oxycodone-acetamin (units (unknown) date) ophen 5 mg-325 1 unknown) tab PO TID PRN #10 tab 11/19/21 (unknown) (no (unknown) (unknown) paravertebral (units ( unknown) date) unknown) (unknown) (no (unknown) (unknown) patient (units (unkno wn) date) unknown) (unknown) (no (unknown) (unknown) prednisone 20 mg (units (unknown) date) tablet 20 mg PO unknown) DAILY #32 tab 11/28/21 (unknown) (no (unknown) (unknown) prednisone 50 mg (units (unknown) date) tablet 50 mg PO unknown) DAILY #5 tab 11/19/21 (unknown) (no (unknown) (unknown) prominence.? (units (u nknown) date) unknown) (unknown) (no (unknown) (unknown) release 24 hr (units ( unknown) date) (Glucotrol XL) unknown) (unknown) (no (unknown) (unknown) seizures, (units (unkn own) date) incoordination. unknown) (unknown) (no (unknown) (unknown) sequelae of (units (un known) date) unknown) (unknown) (no (unknown) (unknown) sinusitis.? The (units (unknown) date) unknown) (unknown) (no (unknown) (unknown) size.? (units (unkno wn) date) unknown) (unknown) (no (unknown) (unknown) solution for (units (u nknown) date) nebulization unknown) (unknown) (no (unknown) (unknown) solution for (units (u nknown) date) nebulization unknown) (unknown) (no (unknown) (unknown) spray,suspension (units (unknown) date) unknown) (unknown) (no (unknown) (unknown) study.? There are (units (unknown) date) postsurgical unknown) changes also redemonstrated status post prior (unknown) (no (unknown) (unknown) substance use (units ( unknown) date) type: does not use unknown) (unknown) (no (unknown) (unknown) suspicious (units (unk nown) date) unknown) (unknown) (no (unknown) (unknown) tablet (units (unkno wn) date) unknown) (unknown) (no (unknown) (unknown) that he would (units ( unknown) date) routinely take. He unknown) is activated as a modified trauma. (unknown) (no (unknown) (unknown) the prior (units (unkn own) date) unknown) (unknown) (no (unknown) (unknown) thickening (units (unk nown) date) unknown) (unknown) (no (unknown) (unknown) to the (units (unkno wn) date) unknown) (unknown) (no (unknown) (unknown) trazodone 100 mg (units (unknown) date) tablet 400 tab PO unknown) BEDTIME 12/09/17 10/08/21 (unknown) (no (unknown) (unknown) varenicline (units (un known) date) [VARENICLINE] unknown) AdvReac Severe Paranoia Verified 11/28/21 15:33 (unknown) (no (unknown) (unknown) vertex, with (units (u nknown) date) coronal and unknown) sagittal reformats.? For radiation dose reduction, the (unknown) (no (unknown) (unknown) vomiting/hypertens (units (unknown) date) ion/dizziness. He unknown) has spoken with and patient and they (unknown) (no (unknown) (unknown) was used:? (units (unk nown) date) automated exposure unknown) control, adjustment of mA and/or kV according to (unknown) (no (unknown) (unknown) within the (units (unk nown) date) visualized left unknown) maxillary sinus suggesting sequelae of chronic (unknown) (no (unknown) (unknown) without erythema, (units (unknown) date) tonsillar unknown) hypertrophy or exudate. Airway patent. Result panel 41 (unknown) (no (unknown) (unknown) (no value) (units (unk nown) date) unknown) (unknown) (no (unknown) (unknown) Radiologist's (units ( unknown) date) Impression: unknown) (unknown) (no (unknown) (unknown) (no value) (units (unk nown) date) unknown) (unknown) (no (unknown) (unknown) Date of Service: (units (unknown) date) 12/07/21 unknown) (unknown) (no (unknown) (unknown) (no value) (units (unk nown) date) unknown) (unknown) (no (unknown) (unknown) 12/07/21 23:05 (units (unknown) date) unknown) (unknown) (no (unknown) (unknown) 1 puff INHALATION (units (unknown) date) Q4-6H PRN (Reason: unknown) shortness of breath or wheezing) Qty: 15 (unknown) (no (unknown) (unknown) 1 spray Intranasal (units (unknown) date) DAILY PRN (Reason: unknown) Allergy Symptoms) Qty: 0 0RF (unknown) (no (unknown) (unknown) 1 tab PO DAILY (units (unknown) date) Qty: 0 0RF unknown) (unknown) (no (unknown) (unknown) 1 tab PO Q6HR PRN (units (unknown) date) (Reason: Back Pain) unknown) 0RF (unknown) (no (unknown) (unknown) 1 tab PO Q8H PRN (units (unknown) date) (Reason: pain) Qty: unknown) 10 0RF (unknown) (no (unknown) (unknown) 1 tab PO TID PRN (units (unknown) date) (Reason: pain) Qty: unknown) 10 0RF (unknown) (no (unknown) (unknown) 10 mg PO DAILY 0RF (units (unknown) date) unknown) (unknown) (no (unknown) (unknown) 10 mg PO Q4-5H PRN (units (unknown) date) (Reason: Pain, unknown) Severe (7-10)) Qty: 60 0RF (unknown) (no (unknown) (unknown) 100 mg PO BID 0RF (units (unknown) date) unknown) (unknown) (no (unknown) (unknown) 100 mg PO TID PRN (units (unknown) date) (Reason: cough) unknown) Qty: 14 0RF (unknown) (no (unknown) (unknown) [address] (units (unknown) date) unknown) (unknown) (no (unknown) (unknown) 2 g topical QID (units (unknown) date) Qty: 100 0RF unknown) (unknown) (no (unknown) (unknown) 2.5 mg PO DAILY (units (unknown) date) 0RF unknown) (unknown) (no (unknown) (unknown) 2.5 mg inhalation (units (unknown) date) QID Qty: 90 1RF unknown) (unknown) (no (unknown) (unknown) 20 mg PO DAILY (units (unknown) date) Qty: 32 0RF unknown) (unknown) (no (unknown) (unknown) 25 mg PO QID PRN (units (unknown) date) (Reason: vertigo) unknown) Qty: 30 0RF (unknown) (no (unknown) (unknown) 3 ml Inhalation (units (unknown) date) Q6H PRN (Reason: unknown) Shortness Of Breath) 0RF (unknown) (no (unknown) (unknown) 300 mg PO BID Qty: (units (unknown) date) 20 0RF unknown) (unknown) (no (unknown) (unknown) 325 mg PO DAILY (units (unknown) date) 0RF unknown) (unknown) (no (unknown) (unknown) 40 mg PO DAILY 0RF (units (unknown) date) unknown) (unknown) (no (unknown) (unknown) 400 tab PO BEDTIME (units (unknown) date) 0RF unknown) (unknown) (no (unknown) (unknown) 50 mg PO DAILY (units (unknown) date) Qty: 5 0RF unknown) (unknown) (no (unknown) (unknown) 500 mg PO Q8H PRN (units (unknown) date) (Reason: muscle unknown) spasm) Qty: 14 0RF (unknown) (no (unknown) (unknown) 60mg x 5 day, 40mg (units (unknown) date) x 5 day, 20mg x5 unknown) day, 10mg x 4 days (unknown) (no (unknown) (unknown) 650 mg PO Q6H PRN (units (unknown) date) (Reason: pain) Qty: unknown) 60 0RF (unknown) (no (unknown) (unknown) ANXIETY, (units (unkno wn) date) unknown) (unknown) (no (unknown) (unknown) Admin: 12/07/21 (units (unknown) date) 23:25 Dose: 150 unknown) mls/hr (unknown) (no (unknown) (unknown) Allergies (units (unkn own) date) unknown) (unknown) (no (unknown) (unknown) [place] (units ( unknown) date) [id number] unknown) (unknown) (no (unknown) (unknown) CT Scan Report (units (unknown) date) unknown) (unknown) (no (unknown) (unknown) Close (units (unkno wn) date) unknown) (unknown) (no (unknown) (unknown) DIZZINESS (units (unkn own) date) unknown) (unknown) (no (unknown) (unknown) Documented by: (units (unknown) date) [email or web address] unknown) (unknown) (no (unknown) (unknown) Documented by: (units (unknown) date) JZIGLAR unknown) (unknown) (no (unknown) (unknown) Documented by: (units (unknown) date) KPETERSON unknown) (unknown) (no (unknown) (unknown) Documented by: (units (unknown) date) RLAZANI unknown) (unknown) (no (unknown) (unknown) ED Orders (units (unkn own) date) unknown) (unknown) (no (unknown) (unknown) EXPOSURE (units (unkno wn) date) unknown) (unknown) (no (unknown) (unknown) Emergency Report (units (unknown) date) unknown) (unknown) (no (unknown) (unknown) Home Medications (units (unknown) date) unknown) (unknown) (no (unknown) (unknown) INHALE 1 VIAL PER (units (unknown) date) NEBULIZER EVERY 6 unknown) HOURS NEEDED (unknown) (no (unknown) (unknown) [facility] (units (unknown) date) unknown) (unknown) (no (unknown) (unknown) [facility] (units (unknown) date) [address] [place] [address] unknown) [place] [address] (unknown) (no (unknown) (unknown) JERKING, (units (unkno wn) date) unknown) (unknown) (no (unknown) (unknown) Lab Results (units (un known) date) unknown) (unknown) (no (unknown) (unknown) Label Comments: (units (unknown) date) unknown) (unknown) (no (unknown) (unknown) Last Admin: (units (un known) date) 12/08/21 01:35 unknown) Dose: 1 tab (unknown) (no (unknown) (unknown) Last Admin: (units (un known) date) 12/08/21 02:34 unknown) Dose: 4 mg (unknown) (no (unknown) (unknown) Last Admin: (units (un known) date) 12/08/21 04:04 unknown) Dose: 0.5 mg (unknown) (no (unknown) (unknown) Last Admin: (units (un known) date) 12/08/21 05:53 unknown) Dose: 4 mg (unknown) (no (unknown) (unknown) Last Admin: (units (un known) date) 12/08/21 05:53 unknown) Dose: 40 mg (unknown) (no (unknown) (unknown) Last Admin: (units (un known) date) 12/08/21 06:11 unknown) Dose: 260 mg (unknown) (no (unknown) (unknown) Last Admin: (units (un known) date) 12/08/21 06:42 unknown) Dose: 20 mg (unknown) (no (unknown) (unknown) Last Admin: (units (un known) date) 12/08/21 06:47 unknown) Dose: Not Given (unknown) (no (unknown) (unknown) Last Admin: (units (un known) date) 12/08/21 07:16 unknown) Dose: 10 mg (unknown) (no (unknown) (unknown) Last Admin: (units (un known) date) 12/08/21 07:17 unknown) Dose: 2.5 mg (unknown) (no (unknown) (unknown) Last Infusion: (units (unknown) date) 12/08/21 04:00 unknown) Dose: 0 mls/hr (unknown) (no (unknown) (unknown) Launch?Image (units (u nknown) date) unknown) (unknown) (no (unknown) (unknown) MINUTES (units (unkno wn) date) unknown) (unknown) (no (unknown) (unknown) NAUSEA W/I (units (unk nown) date) unknown) (unknown) (no (unknown) (unknown) Point of Care (units ( unknown) date) Testing unknown) (unknown) (no (unknown) (unknown) Previous Rx's (units ( unknown) date) unknown) (unknown) (no (unknown) (unknown) Rx Instructions: (units (unknown) date) unknown) (unknown) (no (unknown) (unknown) Signed (units (unkno wn) date) unknown) (unknown) (no (unknown) (unknown) Spouse Milana (units (u nknown) date) called + reported unknown) patient not taking it regularly. (unknown) (no (unknown) (unknown) Stop: 12/08/21 (units (unknown) date) 01:26 unknown) (unknown) (no (unknown) (unknown) Stop: 12/08/21 (units (unknown) date) 02:32 unknown) (unknown) (no (unknown) (unknown) Stop: 12/08/21 (units (unknown) date) 04:01 unknown) (unknown) (no (unknown) (unknown) Stop: 12/08/21 (units (unknown) date) 05:47 unknown) (unknown) (no (unknown) (unknown) Stop: 12/08/21 (units (unknown) date) 05:50 unknown) (unknown) (no (unknown) (unknown) Stop: 12/08/21 (units (unknown) date) 06:04 unknown) (unknown) (no (unknown) (unknown) Stop: 12/08/21 (units (unknown) date) 06:31 unknown) (unknown) (no (unknown) (unknown) Stop: 12/08/21 (units (unknown) date) 07:12 unknown) (unknown) (no (unknown) (unknown) Stop: 12/08/21 (units (unknown) date) 07:16 unknown) (unknown) (no (unknown) (unknown) Vital Signs - 8 hr (units (unknown) date) unknown) (unknown) (no (unknown) (unknown) W/EXTENDED (units (unk nown) date) unknown) (unknown) (no (unknown) (unknown) apply to single (units (unknown) date) elbow, wrist or unknown) hand; for hand includes palm/fingers/back of (unknown) (no (unknown) (unknown) patient states (units (unknown) date) weaning off. unknown) (unknown) (no (unknown) (unknown) take 1 tablet by (units (unknown) date) mouth once daily unknown) (unknown) (no (unknown) (unknown) take 1 tablet by (units (unknown) date) mouth twice a day unknown) (unknown) (no (unknown) (unknown) (no value) (units (unk nown) date) unknown) (unknown) (no (unknown) (unknown) 12/07/21 12/07/21 (units (unknown) date) 12/07/21 unknown) Range/Units (unknown) (no (unknown) (unknown) 12/07/21 12/08/21 (units (unknown) date) Range/Units unknown) (unknown) (no (unknown) (unknown) 23:05 23:05 23:05 (units (unknown) date) unknown) (unknown) (no (unknown) (unknown) 23:05 23:44 23:57 (units (unknown) date) unknown) (unknown) (no (unknown) (unknown) 23:57 01:33 (units (un known) date) unknown) (unknown) (no (unknown) (unknown) Zyrtec 10 mg (units (u nknown) date) Capsule unknown) (unknown) (no (unknown) (unknown) acetaminophen (units ( unknown) date) [Athenol] 325 mg unknown) tablet (unknown) (no (unknown) (unknown) acetaminophen-code (units (unknown) date) ine 300-30 mg unknown) tablet (unknown) (no (unknown) (unknown) albuterol sulfate (units (unknown) date) 1.25 mg/3 mL unknown) solution for nebulization (unknown) (no (unknown) (unknown) benzonatate (units (un known) date) [Tessalon Perles] unknown) 100 mg capsule (unknown) (no (unknown) (unknown) cefdinir 300 mg (units (unknown) date) capsule unknown) (unknown) (no (unknown) (unknown) diclofenac sodium (units (unknown) date) 1 % gel unknown) (unknown) (no (unknown) (unknown) ferrous sulfate (units (unknown) date) 325 mg (65 mg iron) unknown) tablet,delayed release (DR/EC) (unknown) (no (unknown) (unknown) fluticasone (units (un known) date) propionate 16 GM unknown) spray,suspension (unknown) (no (unknown) (unknown) furosemide [Lasix] (units (unknown) date) 40 mg tablet unknown) (unknown) (no (unknown) (unknown) glipizide (units (unkn own) date) [Glucotrol XL] 2.5 unknown) mg tablet extended release 24 hr (unknown) (no (unknown) (unknown) levalbuterol HCl (units (unknown) date) 1.25 mg/3 mL unknown) solution for nebulization (unknown) (no (unknown) (unknown) levalbuterol (units (u nknown) date) tartrate [Xopenex unknown) HFA] 45 mcg/actuation HFA aerosol inhaler (unknown) (no (unknown) (unknown) meclizine 25 mg (units (unknown) date) tablet unknown) (unknown) (no (unknown) (unknown) methocarbamol 500 (units (unknown) date) mg tablet unknown) (unknown) (no (unknown) (unknown) metoprolol (units (unk nown) date) tartrate 100 mg unknown) tablet (unknown) (no (unknown) (unknown) multivitamin (units (u nknown) date) [Multiple Vitamins] unknown) 1 EACH tablet (unknown) (no (unknown) (unknown) oxycodone 5 mg (units (unknown) date) Tablet unknown) (unknown) (no (unknown) (unknown) oxycodone-acetamin (units (unknown) date) ophen [Percocet] unknown) 5-325 mg tablet (unknown) (no (unknown) (unknown) prednisone 20 mg (units (unknown) date) tablet unknown) (unknown) (no (unknown) (unknown) prednisone 50 mg (units (unknown) date) tablet unknown) (unknown) (no (unknown) (unknown) trazodone 100 mg (units (unknown) date) tablet unknown) (unknown) (no (unknown) (unknown) 12/08/21 (units (o wn) date) unknown) (unknown) (no (unknown) (unknown) Medication (units (unk n) date) Instructions unknown) Recorded (unknown) (no (unknown) (unknown) Medication (units (unk n) date) Instructions unknown) Recorded Confirmed (unknown) (no (unknown) (unknown) been contacted and (units (unknown) date) she will be able to unknown) come pick him up in the morning. (unknown) (no (unknown) (unknown) daytime (units (o wn) date) hospitalist to unknown) accept patient. (unknown) (no (unknown) (unknown) facet (units (unkno wn) date) unknown) (unknown) (no (unknown) (unknown) junction (units (unkno wn) date) unknown) (unknown) (no (unknown) (unknown) of (units (unkno wn) date) unknown) (unknown) (no (unknown) (unknown) rales, or rhonchi. (units (unknown) date) unknown) (unknown) (no (unknown) (unknown) <Ezra Jasmine, (units (unknown) date) - Last Filed: unknown) 12/08/21 08:01> (unknown) (no (unknown) (unknown) <Jung Dejesus DO (units (unknown) date) - Last Filed: unknown) 12/08/21 06:53> (unknown) (no (unknown) (unknown) (Athenol) (units (unkn own) date) unknown) (unknown) (no (unknown) (unknown) (More??) (units (unkno wn) date) unknown) (unknown) (no (unknown) (unknown) (Tessalon Perles) (units (unknown) date) unknown) (unknown) (no (unknown) (unknown) (Xopenex HFA) (units ( unknown) date) unknown) (unknown) (no (unknown) (unknown) - (units (unkno wn) date) unknown) (unknown) (no (unknown) (unknown) [id number] (units (unkn own) date) unknown) (unknown) (no (unknown) (unknown) 08/11/20 (units (unkno wn) date) unknown) (unknown) (no (unknown) (unknown) 08/16/20 (units (unkno wn) date) unknown) (unknown) (no (unknown) (unknown) 08/28/20 (units (unkno wn) date) unknown) (unknown) (no (unknown) (unknown) 09/15/21 (units (unkno wn) date) unknown) (unknown) (no (unknown) (unknown) 10/07/21 (units (unkno wn) date) unknown) (unknown) (no (unknown) (unknown) 10/08/21 (units (unkno wn) date) unknown) (unknown) (no (unknown) (unknown) 10/31/20 (units (unkno wn) date) unknown) (unknown) (no (unknown) (unknown) 11/04/20 (units (unkno wn) date) unknown) (unknown) (no (unknown) (unknown) 11/07/20 (units (unkno wn) date) unknown) (unknown) (no (unknown) (unknown) 11/19/21 (units (unkno wn) date) unknown) (unknown) (no (unknown) (unknown) 11/22/20 (units (unkno wn) date) unknown) (unknown) (no (unknown) (unknown) 11/28/21 (units (unkno wn) date) unknown) (unknown) (no (unknown) (unknown) 12/07/21 (units (unkno wn) date) unknown) (unknown) (no (unknown) (unknown) 12/07/21 23:05 (units (unknown) date) unknown) (unknown) (no (unknown) (unknown) 12/07/21 23:21 (units (unknown) date) unknown) (unknown) (no (unknown) (unknown) 12/07/21 23:44 (units (unknown) date) unknown) (unknown) (no (unknown) (unknown) 12/07/21 23:57 (units (unknown) date) unknown) (unknown) (no (unknown) (unknown) 12/08/21 03:22 (units (unknown) date) unknown) (unknown) (no (unknown) (unknown) 12/08/21 06:48 (units (unknown) date) unknown) (unknown) (no (unknown) (unknown) 12/28/20 (units (unkno wn) date) unknown) (unknown) (no (unknown) (unknown) 05:35 12/08/21 (units (unknown) date) unknown) (unknown) (no (unknown) (unknown) 05:37 12/08/21 (units (unknown) date) unknown) (unknown) (no (unknown) (unknown) 06:32 (units (unkno wn) date) unknown) (unknown) (no (unknown) (unknown) 06:33 12/08/21 (units (unknown) date) unknown) (unknown) (no (unknown) (unknown) 03/05/21 (units (unkno wn) date) unknown) (unknown) (no (unknown) (unknown) 07:00 12/08/21 (units (unknown) date) unknown) (unknown) (no (unknown) (unknown) 07:18 (units (unkno wn) date) unknown) (unknown) (no (unknown) (unknown) 04/16/21 (units (unkno wn) date) unknown) (unknown) (no (unknown) (unknown) 0RF (units (unkno wn) date) unknown) (unknown) (no (unknown) (unknown) 1. No acute (units (un known) date) intracranial unknown) abnormality. (unknown) (no (unknown) (unknown) 1.? No acute (units (u nknown) date) fracture or unknown) subluxation. (unknown) (no (unknown) (unknown) 12 point review of (units (unknown) date) systems is negative unknown) except for those stated above (unknown) (no (unknown) (unknown) 07/18/20 (units (unkno wn) date) unknown) (unknown) (no (unknown) (unknown) 2. Bony remodeling (units (unknown) date) in the left unknown) maxillary sinus redemonstrated consistent with (unknown) (no (unknown) (unknown) 2. Postsurgical (units (unknown) date) changes unknown) redemonstrated throughout the cervical spine with fusion (unknown) (no (unknown) (unknown) 3. Mild cerebral (units (unknown) date) volume loss.? unknown) (unknown) (no (unknown) (unknown) 76-year-old male (units (unknown) date) former smoker with unknown) heavy alcohol abuse today and history of (unknown) (no (unknown) (unknown) 7:00 a.m. s/o from (units (unknown) date) dr dejesus, patient unknown) will need admission for intractable (unknown) (no (unknown) (unknown) ? (units (unkno wn) date) unknown) (unknown) (no (unknown) (unknown) ? (units (unkno wn) date) unknown) (unknown) (no (unknown) (unknown) ?Minimal (units (unkno wn) date) anterolisthesis unknown) also demonstrated at T1-T2.? Findings are similar to (unknown) (no (unknown) (unknown) ACDF at (units (unkno wn) date) unknown) (unknown) (no (unknown) (unknown) ALT (<50) (units ( unknown) date) IU/L unknown) (unknown) (no (unknown) (unknown) ALT (<50) IU/L (units (unknown) date) unknown) (unknown) (no (unknown) (unknown) ALT 31 (<50) (units (unknown) date) IU/L unknown) (unknown) (no (unknown) (unknown) ANTIBIOTICS)] (units ( unknown) date) unknown) (unknown) (no (unknown) (unknown) AST (17-59) (units (unknown) date) IU/L unknown) (unknown) (no (unknown) (unknown) AST (17-59) (units (unknown) date) IU/L unknown) (unknown) (no (unknown) (unknown) AST 32 (17-59) (units (unknown) date) IU/L unknown) (unknown) (no (unknown) (unknown) Accession Number: (units (unknown) date) [id number] ?? unknown) (unknown) (no (unknown) (unknown) Accession Number: (units (unknown) date) [id number] ?? unknown) (unknown) (no (unknown) (unknown) Acct:[id number] (units (unknown) date) unknown) (unknown) (no (unknown) (unknown) Acetaminophen (units ( unknown) date) (10-30) ug/mL unknown) (unknown) (no (unknown) (unknown) Acetaminophen (units ( unknown) date) (10-30) ug/mL unknown) (unknown) (no (unknown) (unknown) Acetaminophen < (units (unknown) date) 10 (10-30) ug/mL unknown) (unknown) (no (unknown) (unknown) Acetaminophen Stat (units (unknown) date) unknown) (unknown) (no (unknown) (unknown) Acetaminophen/Code (units (unknown) date) ine Phosphate unknown) (Codeine/Acetaminop hen 30/300 Tablet) 1 tab PO (unknown) (no (unknown) (unknown) Achalasia (units (unkn own) date) unknown) (unknown) (no (unknown) (unknown) Age/Sex: 76 / M (units (unknown) date) unknown) (unknown) (no (unknown) (unknown) Age/Sex: 76 / M (units (unknown) date) unknown) (unknown) (no (unknown) (unknown) Albumin (units (unkno wn) date) (3.5-5.0) g/dL unknown) (unknown) (no (unknown) (unknown) Albumin (units (unkno wn) date) (3.5-5.0) g/dL unknown) (unknown) (no (unknown) (unknown) Albumin 4.1 (units ( unknown) date) (3.5-5.0) g/dL unknown) (unknown) (no (unknown) (unknown) Albumin/Globulin (units (unknown) date) Ratio (1.0-2.8) unknown) (unknown) (no (unknown) (unknown) Albumin/Globulin (units (unknown) date) Ratio (1.0-2.8) unknown) (unknown) (no (unknown) (unknown) Albumin/Globulin (units (unknown) date) Ratio 1.4 unknown) (1.0-2.8) (unknown) (no (unknown) (unknown) Albuterol (units (unkn own) date) (Albuterol 2.5 Mg/3 unknown) Ml Neb (Adult)) 2.5 mg INH NOW ONE (unknown) (no (unknown) (unknown) Alkaline (units (unkno wn) date) Phosphatase unknown) (38-126) U/L (unknown) (no (unknown) (unknown) Alkaline (units (unkno wn) date) Phosphatase unknown) (38-126) U/L (unknown) (no (unknown) (unknown) Alkaline (units (unkno wn) date) Phosphatase 64 unknown) (38-126) U/L (unknown) (no (unknown) (unknown) Allergy/Adv: (units (u nknown) date) celecoxib, latex, unknown) Sulfa (Sulfonamide Antibiotics), varenicline, (unknown) (no (unknown) (unknown) Allergy/AdvReac (units (unknown) date) Type Severity unknown) Reaction Status Date / Time (unknown) (no (unknown) (unknown) Anginal pain (units (u nknown) date) unknown) (unknown) (no (unknown) (unknown) Ankle X-Ray (units (un known) date) (Signed) unknown) (unknown) (no (unknown) (unknown) Antibiotics) (units (u nknown) date) unknown) (unknown) (no (unknown) (unknown) Approved by: (units (u nknown) date) Maxim Valadez, unknown) Clifford on 12/07/2021 at 21:44 ? (unknown) (no (unknown) (unknown) Approved by: (units (u nknown) date) Maxim Valadez unknown) Clifford on 12/07/2021 at 21:48 ? (unknown) (no (unknown) (unknown) Asthma (units (unkno wn) date) unknown) (unknown) (no (unknown) (unknown) Atrial (units (unkno wn) date) fibrillation unknown) (unknown) (no (unknown) (unknown) BACK: Nontender (units (unknown) date) without deformity unknown) or crepitance. No flank tenderness. (unknown) (no (unknown) (unknown) BUN (9-20) (units (unknown) date) mg/dL unknown) (unknown) (no (unknown) (unknown) BUN (9-20) (units ( unknown) date) mg/dL unknown) (unknown) (no (unknown) (unknown) BUN 21 H (units (unk nown) date) (9-20) mg/dL unknown) (unknown) (no (unknown) (unknown) BUN/Creatinine (units (unknown) date) Ratio (6-22) unknown) (unknown) (no (unknown) (unknown) BUN/Creatinine (units (unknown) date) Ratio (6-22) unknown) (unknown) (no (unknown) (unknown) BUN/Creatinine (units (unknown) date) Ratio 23.9 H unknown) (6-22) (unknown) (no (unknown) (unknown) Baso # (Auto) (units ( unknown) date) (0-100) /uL unknown) (unknown) (no (unknown) (unknown) Baso # (Auto) (units ( unknown) date) (0-100) /uL unknown) (unknown) (no (unknown) (unknown) Baso # (Auto) 100 (units (unknown) date) (0-100) /uL unknown) (unknown) (no (unknown) (unknown) Baso % (Auto) (units ( unknown) date) (0-2) % unknown) (unknown) (no (unknown) (unknown) Baso % (Auto) (units ( unknown) date) (0-2) % unknown) (unknown) (no (unknown) (unknown) Baso % (Auto) 0.8 (units (unknown) date) (0-2) % unknown) (unknown) (no (unknown) (unknown) Blood Culture Stat (units (unknown) date) unknown) (unknown) (no (unknown) (unknown) Blood Pressure (units (unknown) date) 159/98 H 12/07/21 unknown) 20:23 (unknown) (no (unknown) (unknown) Blood Pressure (units (unknown) date) 194/102 H 228/109 H unknown) (unknown) (no (unknown) (unknown) Blood Pressure (units (unknown) date) 207/103 H 207/103 H unknown) (unknown) (no (unknown) (unknown) Bones:? No (units (unk nown) date) fractures or unknown) subluxation.? There is anterolisthesis at C2-C3 (unknown) (no (unknown) (unknown) Brain MRI (Signed) (units (unknown) date) unknown) (unknown) (no (unknown) (unknown) Brain:? No (units (unkn own) date) intracranial unknown) hemorrhage, mass, or mass effect.? The adams-white matter (unknown) (no (unknown) (unknown) C4-C5 and C7-T1.? (units (unknown) date) There is also unknown) fusion at C5-C6 and C6-C7.? There is mild to (unknown) (no (unknown) (unknown) CARDIOVASCULAR: (units (unknown) date) Denies chest pain, unknown) palpitations, orthopnea, edema, (unknown) (no (unknown) (unknown) CARDIOVASCULAR: (units (unknown) date) Regular rate and unknown) rhythm without murmurs, gallops, or rubs. (unknown) (no (unknown) (unknown) COMPARISON:? (units (u nknown) date) [facility], unknown) CT, CT CERVICAL SPINE WO CON, 04/16/2021, 12:21. (unknown) (no (unknown) (unknown) COMPARISON:? (units (u nknown) date) [facility], unknown) CT, CT HEAD/BRAIN WO CON, 04/16/2021, 12:21. (unknown) (no (unknown) (unknown) COPD (chronic (units ( unknown) date) obstructive unknown) pulmonary disease) (unknown) (no (unknown) (unknown) COVID19 -Nasal (units (unknown) date) RAPID/Pre-Proc Stat unknown) (unknown) (no (unknown) (unknown) CSF spaces:? Basal (units (unknown) date) cisterns are unknown) patent.? The ventricles are symmetric in size (unknown) (no (unknown) (unknown) CT - cervical (units ( unknown) date) spine: unknown) (unknown) (no (unknown) (unknown) CT lumbar spine wo (units (unknown) date) con Stat unknown) (unknown) (no (unknown) (unknown) CT scan - head: (units (unknown) date) unknown) (unknown) (no (unknown) (unknown) Calcium (units (unkno wn) date) (8.4-10.2) mg/dL unknown) (unknown) (no (unknown) (unknown) Calcium (units (unkno wn) date) (8.4-10.2) mg/dL unknown) (unknown) (no (unknown) (unknown) Calcium 8.4 (units ( unknown) date) (8.4-10.2) mg/dL unknown) (unknown) (no (unknown) (unknown) Call,Francisco J (units (unk nown) date) unknown) (unknown) (no (unknown) (unknown) Carbon Dioxide (units (unknown) date) (22-32) mmol/L unknown) (unknown) (no (unknown) (unknown) Carbon Dioxide (units (unknown) date) (22-32) mmol/L unknown) (unknown) (no (unknown) (unknown) Carbon Dioxide (units (unknown) date) 27 (22-32) unknown) mmol/L (unknown) (no (unknown) (unknown) Cervical Spine CT (units (unknown) date) (Signed) unknown) (unknown) (no (unknown) (unknown) Cervical spinal (units (unknown) date) stenosis unknown) (unknown) (no (unknown) (unknown) Chest CTA (Signed) (units (unknown) date) unknown) (unknown) (no (unknown) (unknown) Chest X-Ray (units (un known) date) (Signed) unknown) (unknown) (no (unknown) (unknown) Chest/Abdomen/Pelv (units (unknown) date) is CTA (Signed) unknown) (unknown) (no (unknown) (unknown) Chief Complaint: (units (unknown) date) Trauma unknown) (unknown) (no (unknown) (unknown) Chloride (units (unkno wn) date) (98-107) mmol/L unknown) (unknown) (no (unknown) (unknown) Chloride (units (unkno wn) date) (98-107) mmol/L unknown) (unknown) (no (unknown) (unknown) Chloride 104 (units (unknown) date) (98-107) mmol/L unknown) (unknown) (no (unknown) (unknown) 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 (10/22/16) (unknown) (no (unknown) (unknown) Zeina Saavedra (units (u nknown) date) unknown) (unknown) (no (unknown) (unknown) Complete Blood (units (unknown) date) Count AUTO DIFF unknown) Stat (unknown) (no (unknown) (unknown) Comprehensive (units ( unknown) date) Metabolic Panel unknown) Stat (unknown) (no (unknown) (unknown) Coronary artery (units (unknown) date) disease unknown) (unknown) (no (unknown) (unknown) Course (units (unkno wn) date) unknown) (unknown) (no (unknown) (unknown) Course Narrative: (units (unknown) date) unknown) (unknown) (no (unknown) (unknown) Creatinine (units (unk nown) date) (0.66-1.25) mg/dL unknown) (unknown) (no (unknown) (unknown) Creatinine (units (unk nown) date) (0.66-1.25) mg/dL unknown) (unknown) (no (unknown) (unknown) Creatinine 0.88 (units (unknown) date) (0.66-1.25) mg/dL unknown) (unknown) (no (unknown) (unknown) : 1945 (units (unknown) date) Acct:[id number] unknown) (unknown) (no (unknown) (unknown) : 1945 (units (unknown) date) unknown) (unknown) (no (unknown) (unknown) Kimmy Gomez MD (units (unknown) date) [Primary Care unknown) Provider] - (unknown) (no (unknown) (unknown) Date of Service: (units (unknown) date) 12/07/21 unknown) (unknown) (no (unknown) (unknown) Departure (units (unkn own) date) unknown) (unknown) (no (unknown) (unknown) Inder Farley (units (u nknown) date) unknown) (unknown) (no (unknown) (unknown) Dictated by: (units (u nknown) date) Maxim Valadez, unknown) Clifford on 12/07/2021 at 21:42 ? ? (unknown) (no (unknown) (unknown) Dictated by: (units (u nknown) date) Maxim Valadez, unknownRui Horton on 12/07/2021 at 21:44 ? ? (unknown) (no (unknown) (unknown) Discharge Plan (units (unknown) date) unknown) (unknown) (no (unknown) (unknown) Discontinued (units (u nknown) date) Medications unknown) (unknown) (no (unknown) (unknown) EKG-12 Lead (units (un known) date) Routine unknown) (unknown) (no (unknown) (unknown) ENT: Nose without (units (unknown) date) bleeding, purulent unknown) drainage. No nasal septal hematoma Throat (unknown) (no (unknown) (unknown) ER Physician: (units ( unknown) date) Ezra Jasmine MD unknown) (unknown) (no (unknown) (unknown) EXTREMITIES: No (units (unknown) date) edema or joint unknown) tenderness. (unknown) (no (unknown) (unknown) EYES: Pupils equal (units (unknown) date) round and reactive. unknown) No hyphema Extraocular motions intact. (unknown) (no (unknown) (unknown) Echocardiogram (units (unknown) date) Ultrasound (Signed) unknown) (unknown) (no (unknown) (unknown) Eos # (Auto) (units (u nknown) date) (0-450) /uL unknown) (unknown) (no (unknown) (unknown) Eos # (Auto) (units (u nknown) date) (0-450) /uL unknown) (unknown) (no (unknown) (unknown) Eos # (Auto) 100 (units (unknown) date) (0-450) /uL unknown) (unknown) (no (unknown) (unknown) Eos % (Auto) (units (u nknown) date) (2-4) % unknown) (unknown) (no (unknown) (unknown) Eos % (Auto) (units (u nknown) date) (2-4) % unknown) (unknown) (no (unknown) (unknown) Eos % (Auto) 2.0 (units (unknown) date) (2-4) % unknown) (unknown) (no (unknown) (unknown) Estimated GFR (units ( unknown) date) (>60) mL/min unknown) (unknown) (no (unknown) (unknown) Estimated GFR (units ( unknown) date) (>60) mL/min unknown) (unknown) (no (unknown) (unknown) Estimated GFR > (units (unknown) date) 60 (>60) mL/min unknown) (unknown) (no (unknown) (unknown) Ethanol (ETOH) (units (unknown) date) Stat unknown) (unknown) (no (unknown) (unknown) Ethyl Alcohol ( (units (unknown) date) - 10) mg/dL unknown) (unknown) (no (unknown) (unknown) Ethyl Alcohol ( (units (unknown) date) - 10) mg/dL unknown) (unknown) (no (unknown) (unknown) Ethyl Alcohol (units ( unknown) date) 111 H ( - 10) unknown) mg/dL (unknown) (no (unknown) (unknown) Exam (units (unkno wn) date) unknown) (unknown) (no (unknown) (unknown) Exam Narrative: (units (unknown) date) unknown) (unknown) (no (unknown) (unknown) FINDINGS:? (units (unk nown) date) unknown) (unknown) (no (unknown) (unknown) Family History (units (unknown) date) (Reviewed 12/08/21 unknown) @ 01:57 by Jung Dejesus DO) (unknown) (no (unknown) (unknown) Foot X-Ray (units (unk nown) date) (Signed) unknown) (unknown) (no (unknown) (unknown) GASTROINTESTINAL: (units (unknown) date) Abdomen soft, unknown) non-tender, nondistended. (unknown) (no (unknown) (unknown) GASTROINTESTINAL: (units (unknown) date) Denies nausea, unknown) vomiting, abdominal pain, diarrhea, (unknown) (no (unknown) (unknown) GENERAL: Denies (units (unknown) date) chills, fatigue, unknown) malaise, fever, sweats. (unknown) (no (unknown) (unknown) GENERAL: [76 year (units (unknown) date) old patient appears unknown) stated age. Well-developed patient, in (unknown) (no (unknown) (unknown) : Denies (units (unk nown) date) dysuria, frequency, unknown) incontinence, hematuria, urinary retention. (unknown) (no (unknown) (unknown) General (units (unkno wn) date) unknown) (unknown) (no (unknown) (unknown) GenericComposite[P (units (unknown) date) lt Count unknown) (150-400) X10^3/uL ] (unknown) (no (unknown) (unknown) GenericComposite[P (units (unknown) date) lt Count unknown) (150-400) X10^3/uL ] (unknown) (no (unknown) (unknown) GenericComposite[P (units (unknown) date) lt Count 241 unknown) (150-400) X10^3/uL ] (unknown) (no (unknown) (unknown) GenericComposite[R (units (unknown) date) BC (4.5-5.9) unknown) X10^6/uL ] (unknown) (no (unknown) (unknown) GenericComposite[R (units (unknown) date) BC (4.5-5.9) unknown) X10^6/uL ] (unknown) (no (unknown) (unknown) GenericComposite[R (units (unknown) date) BC 4.93 unknown) (4.5-5.9) X10^6/uL ] (unknown) (no (unknown) (unknown) GenericComposite[W (units (unknown) date) BC (4.5-11.0) unknown) X10^3/uL ] (unknown) (no (unknown) (unknown) GenericComposite[W (units (unknown) date) BC (4.5-11.0) unknown) X10^3/uL ] (unknown) (no (unknown) (unknown) GenericComposite[W (units (unknown) date) BC 7.4 unknown) (4.5-11.0) X10^3/uL ] (unknown) (no (unknown) (unknown) Globulin (units (unkno wn) date) (1.7-4.1) g/dL unknown) (unknown) (no (unknown) (unknown) Globulin (units (unkno wn) date) (1.7-4.1) g/dL unknown) (unknown) (no (unknown) (unknown) Globulin 2.9 (units (unknown) date) (1.7-4.1) g/dL unknown) (unknown) (no (unknown) (unknown) Glucose (units (unkno wn) date) (80-110) mg/dL unknown) (unknown) (no (unknown) (unknown) Glucose (units (unkno wn) date) (80-110) mg/dL unknown) (unknown) (no (unknown) (unknown) Glucose 124 H (units (unknown) date) (80-110) mg/dL unknown) (unknown) (no (unknown) (unknown) Glucose POC 118 (units (unknown) date) unknown) (unknown) (no (unknown) (unknown) H/O arthroscopic (units (unknown) date) knee surgery unknown) (11/14/17) (unknown) (no (unknown) (unknown) HEAD: Superficial (units (unknown) date) abrasion on the unknown) bridge of his nose, no other obvious (unknown) (no (unknown) (unknown) HEENT: See HPI (units (unknown) date) unknown) (unknown) (no (unknown) (unknown) HPI - Fall (units (unk nown) date) unknown) (unknown) (no (unknown) (unknown) HPI Narrative: (units (unknown) date) unknown) (unknown) (no (unknown) (unknown) Hand X-Ray (units (unk nown) date) (Signed) unknown) (unknown) (no (unknown) (unknown) Jean Oneill (units (unknown) date) unknown) (unknown) (no (unknown) (unknown) Hct (41-53) % (units (unknown) date) unknown) (unknown) (no (unknown) (unknown) Hct (41-53) % (units (unknown) date) unknown) (unknown) (no (unknown) (unknown) Hct 46.0 (units (unkn own) date) (41-53) % unknown) (unknown) (no (unknown) (unknown) Head CT (Signed) (units (unknown) date) unknown) (unknown) (no (unknown) (unknown) Head/Neck CTA (units ( unknown) date) (Signed) unknown) (unknown) (no (unknown) (unknown) Hgb (units (unkno wn) date) (13.5-17.5) g/dL unknown) (unknown) (no (unknown) (unknown) Hgb (13.5-17.5) (units (unknown) date) g/dL unknown) (unknown) (no (unknown) (unknown) Hgb 15.6 (units (unkn own) date) (13.5-17.5) g/dL unknown) (unknown) (no (unknown) (unknown) History of Present (units (unknown) date) Illness unknown) (unknown) (no (unknown) (unknown) History of aortic (units (unknown) date) dissection unknown) () (unknown) (no (unknown) (unknown) History of (units (unk nown) date) arthroplasty of unknown) right knee (unknown) (no (unknown) (unknown) 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 (unknown) (no (unknown) (unknown) History of cardiac (units (unknown) date) cath () unknown) (unknown) (no (unknown) (unknown) History of (units (unk nown) date) esophageal surgery unknown) (unknown) (no (unknown) (unknown) History of (units (unk nown) date) incision and unknown) drainage (-2016) (unknown) (no (unknown) (unknown) History of prior (units (unknown) date) ablation treatment unknown) (-03/2017) (unknown) (no (unknown) (unknown) History of surgery (units (unknown) date) unknown) (unknown) (no (unknown) (unknown) Vidal,Ronni (units (unk nown) date) unknown) (unknown) (no (unknown) (unknown) Hx of (units (unkno wn) date) cholecystectomy unknown) (unknown) (no (unknown) (unknown) Hx of hernia (units (u nknown) date) repair unknown) (unknown) (no (unknown) (unknown) Hx of sinus (units (un known) date) surgery unknown) (unknown) (no (unknown) (unknown) Hydralazine HCl (units (unknown) date) (Hydralazine 20 unknown) Mg/Ml Vial) 10 mg IV NOW ONE (unknown) (no (unknown) (unknown) Hydromorphone HCl (units (unknown) date) (Hydromorphone 0.5 unknown) Mg Inj) 0.5 mg IV NOW ONE (unknown) (no (unknown) (unknown) Hypertension (units (u nknown) date) unknown) (unknown) (no (unknown) (unknown) IMPRESSION:? (units (u nknown) date) unknown) (unknown) (no (unknown) (unknown) INDICATIONS:? (units ( unknown) date) trauma unknown) (unknown) (no (unknown) (unknown) INHIBITOR] (units (unk nown) date) unknown) (unknown) (no (unknown) (unknown) Image quality:? (units (unknown) date) Excellent.? unknown) (unknown) (no (unknown) (unknown) Image quality:? (units (unknown) date) There is motion unknown) artifact limiting evaluation.? (unknown) (no (unknown) (unknown) Imaging Data (units (u nknown) date) unknown) (unknown) (no (unknown) (unknown) Inhibitor (units (unkn own) date) MUSCLES unknown) (unknown) (no (unknown) (unknown) Initial Vital (units ( unknown) date) Signs unknown) (unknown) (no (unknown) (unknown) Initial Vital (units ( unknown) date) Signs: unknown) (unknown) (no (unknown) (unknown) Ischemic (units (unkno wn) date) cardiomyopathy unknown) (unknown) (no (unknown) (unknown) Theodore,Exmore (units (unknown) date) unknown) (unknown) (no (unknown) (unknown) Bharath [facility]su (units ( unknown) date) unknown) (unknown) (no (unknown) (unknown) Knee X-Ray (units (k n) date) (Signed) unknown) (unknown) (no (unknown) (unknown) Lab Data (units (o wn) date) unknown) (unknown) (no (unknown) (unknown) Labs: (units (o wn) date) unknown) (unknown) (no (unknown) (unknown) Lactate (units (o wn) date) (0.7-2.1) mmol/L unknown) (unknown) (no (unknown) (unknown) Lactate 2.3 H (units (unknown) date) (0.7-2.1) mmol/L unknown) (unknown) (no (unknown) (unknown) Lactate 1.5 (units ( unknown) date) (0.7-2.1) mmol/L unknown) (unknown) (no (unknown) (unknown) Lactate (Lactic (units (unknown) date) Acid) Stat unknown) (unknown) (no (unknown) (unknown) Lisinopril (units () date) (Lisinopril 20 Mg unknown) Tablet) 20 mg PO NOW ONE (unknown) (no (unknown) (unknown) Satish Jarrett (units (o wn) date) unknown) (unknown) (no (unknown) (unknown) Loc: ED (units (o wn) date) unknown) (unknown) (no (unknown) (unknown) Lumbar Spine MRI (units (unknown) date) (Signed) unknown) (unknown) (no (unknown) (unknown) Lymph # (Auto) (units (unknown) date) (1693-7805) /uL unknown) (unknown) (no (unknown) (unknown) Lymph # (Auto) (units (unknown) date) (6319-1343) /uL unknown) (unknown) (no (unknown) (unknown) Lymph # (Auto) (units (unknown) date) 1700 (6181-7720) unknown) /uL (unknown) (no (unknown) (unknown) Lymph % (Auto) (units (unknown) date) (25-40) % unknown) (unknown) (no (unknown) (unknown) Lymph % (Auto) (units (unknown) date) (25-40) % unknown) (unknown) (no (unknown) (unknown) Lymph % (Auto) (units (unknown) date) 23.0 L (25-40) unknown) % (unknown) (no (unknown) (unknown) MCH (26-34) (units (unknown) date) PG unknown) (unknown) (no (unknown) (unknown) MCH (26-34) PG (units (unknown) date) unknown) (unknown) (no (unknown) (unknown) MCH 31.7 (units (unkn own) date) (26-34) PG unknown) (unknown) (no (unknown) (unknown) MCHC (30-36) (units (unknown) date) % unknown) (unknown) (no (unknown) (unknown) MCHC (30-36) % (units (unknown) date) unknown) (unknown) (no (unknown) (unknown) MCHC 34.0 (units (unk nown) date) (30-36) % unknown) (unknown) (no (unknown) (unknown) MCV (80-100) (units (unknown) date) fL unknown) (unknown) (no (unknown) (unknown) MCV (80-100) (units (unknown) date) fL unknown) (unknown) (no (unknown) (unknown) MCV 93.3 (units (unkn own) date) (80-100) fL unknown) (unknown) (no (unknown) (unknown) MDM - Fall (units (unk nown) date) unknown) (unknown) (no (unknown) (unknown) MR#: [id number] (units (unknown) date) unknown) (unknown) (no (unknown) (unknown) MUSCULOSKELETAL: (units (unknown) date) See HPI unknown) (unknown) (no (unknown) (unknown) Medical History (units (unknown) date) (Reviewed 12/08/21 unknown) @ 01:57 by Jung Dejesus DO) (unknown) (no (unknown) (unknown) Cheryl Husain (units (unknown) date) unknown) (unknown) (no (unknown) (unknown) Metoprolol (units (unk nown) date) Tartrate unknown) (Metoprolol Ir 25 Mg Tablet) 100 mg PO NOW ONE (unknown) (no (unknown) (unknown) Mode of arrival: (units (unknown) date) EMS unknown) (unknown) (no (unknown) (unknown) [place] # (Auto) (units ( unknown) date) (0-900) /uL unknown) (unknown) (no (unknown) (unknown) [place] # (Auto) (units ( unknown) date) (0-900) /uL unknown) (unknown) (no (unknown) (unknown) [place] # (Auto) 700 (units (unknown) date) (0-900) /uL unknown) (unknown) (no (unknown) (unknown) [place] % (Auto) (units ( unknown) date) (3-14) % unknown) (unknown) (no (unknown) (unknown) [place] % (Auto) (units ( unknown) date) (3-14) % unknown) (unknown) (no (unknown) (unknown) [place] % (Auto) 9.5 (units (unknown) date) (3-14) % unknown) (unknown) (no (unknown) (unknown) Mother (units (unknown) date) Stroke unknown) (unknown) (no (unknown) (unknown) NECK: Trachea (units ( unknown) date) midline. Non tender unknown) (unknown) (no (unknown) (unknown) NEURO: Cranial (units (unknown) date) nerves 2-12 grossly unknown) intact (unknown) (no (unknown) (unknown) NEUROLOGIC: Denies (units (unknown) date) weakness, headache, unknown) numbness, change in speech, confusion, (unknown) (no (unknown) (unknown) NOW ONE (units (unkno wn) date) unknown) (unknown) (no (unknown) (unknown) Narcotic (units (unkno wn) date) dependence unknown) (unknown) (no (unknown) (unknown) Narrative (units (unkn own) date) unknown) (unknown) (no (unknown) (unknown) Narrative: (units (unk nown) date) unknown) (unknown) (no (unknown) (unknown) Neck pain, chronic (units (unknown) date) unknown) (unknown) (no (unknown) (unknown) Neut # (Auto) (units ( unknown) date) (3703-4476) /uL unknown) (unknown) (no (unknown) (unknown) Neut # (Auto) (units ( unknown) date) (9916-5286) /uL unknown) (unknown) (no (unknown) (unknown) Neut # (Auto) (units ( unknown) date) 4800 (9070-9569) unknown) /uL (unknown) (no (unknown) (unknown) Neut % (Auto) (units ( unknown) date) (50-75) % unknown) (unknown) (no (unknown) (unknown) Neut % (Auto) (units ( unknown) date) (50-75) % unknown) (unknown) (no (unknown) (unknown) Neut % (Auto) (units ( unknown) date) 64.7 (50-75) % unknown) (unknown) (no (unknown) (unknown) No Action (units (unkn own) date) unknown) (unknown) (no (unknown) (unknown) No scleral (units (unk nown) date) icterus. No unknown) injection or drainage. (unknown) (no (unknown) (unknown) Noncontrast 3 mm (units (unknown) date) thick sections unknown) acquired from the skull base to the T4 level.? (unknown) (no (unknown) (unknown) Noncontrast 4.5 mm (units (unknown) date) thick angled axial unknown) sections acquired from the foramen magnum (unknown) (no (unknown) (unknown) Ondansetron HCl (units (unknown) date) (Ondansetron 4 Mg/2 unknown) Ml Inj) 4 mg IV NOW ONE (unknown) (no (unknown) (unknown) Ordered: (units (unkno wn) date) unknown) (unknown) (no (unknown) (unknown) Ordering Provider: (units (unknown) date) Jung Dejesus D.O. unknown) (unknown) (no (unknown) (unknown) Orders (units (unkno wn) date) unknown) (unknown) (no (unknown) (unknown) PROCEDURE:? CT (units (unknown) date) CERVICAL SPINE WO unknown) CON (unknown) (no (unknown) (unknown) PROCEDURE:? CT (units (unknown) date) HEAD/BRAIN WO CON unknown) (unknown) (no (unknown) (unknown) PSYCHIATRIC: No (units (unknown) date) concerning unknown) psychosocial issues. (unknown) (no (unknown) (unknown) Pantoprazole (units (u nknown) date) Sodium unknown) (Pantoprazole 40 Mg Vial) 40 mg IV NOW ONE (unknown) (no (unknown) (unknown) Patient History (units (unknown) date) unknown) (unknown) (no (unknown) (unknown) Patient getting (units (unknown) date) shaky, sweaty, unknown) tachycardic, HTN, sweaty, and developing N/V/D. (unknown) (no (unknown) (unknown) Patient observed (units (unknown) date) for some time unknown) before labs added. He has continued to have a (unknown) (no (unknown) (unknown) Patient: (units (unkno wn) date) Dominic Viveros unknown) MR#: M (unknown) (no (unknown) (unknown) Patient: (units (unkno wn) date) Dominic Viveros unknown) (unknown) (no (unknown) (unknown) Maxim Valadez (units (un known) date) unknown) (unknown) (no (unknown) (unknown) Phenobarbital (units ( unknown) date) (Phenobarbital 65 unknown) Mg/Ml Vial) 260 mg IV NOW ONE (unknown) (no (unknown) (unknown) Potassium (units (unkn own) date) (3.4-5.1) mmol/L unknown) (unknown) (no (unknown) (unknown) Potassium (units (unkn own) date) (3.4-5.1) mmol/L unknown) (unknown) (no (unknown) (unknown) Potassium 4.5 (units (unknown) date) (3.4-5.1) mmol/L unknown) (unknown) (no (unknown) (unknown) Prescriptions: (units (unknown) date) unknown) (unknown) (no (unknown) (unknown) Procedure: CT (units ( unknown) date) cervical spine wo unknown) con (unknown) (no (unknown) (unknown) Procedure: CT (units ( unknown) date) head/brain wo con unknown) (unknown) (no (unknown) (unknown) Prolactin (units (unkn own) date) (3.7-17.9) ng/mL unknown) (unknown) (no (unknown) (unknown) Prolactin (units (unkn own) date) (3.7-17.9) ng/mL unknown) (unknown) (no (unknown) (unknown) Prolactin 18.9 H (units (unknown) date) (3.7-17.9) ng/mL unknown) (unknown) (no (unknown) (unknown) Prolactin Stat (units (unknown) date) unknown) (unknown) (no (unknown) (unknown) Pulse Oximetry 92 (units (unknown) date) 12/07/21 20:23 unknown) (unknown) (no (unknown) (unknown) Pulse Oximetry 96 (units (unknown) date) 93 unknown) (unknown) (no (unknown) (unknown) Pulse Oximetry 92 (units (unknown) date) 96 unknown) (unknown) (no (unknown) (unknown) Pulse Rate 67 66 (units (unknown) date) unknown) (unknown) (no (unknown) (unknown) Pulse Rate 88 (units (unknown) date) 12/07/21 20:23 unknown) (unknown) (no (unknown) (unknown) Pulse Rate 64 68 (units (unknown) date) 69 unknown) (unknown) (no (unknown) (unknown) RDW (units (unkno wn) date) (11.6-14.8) % unknown) (unknown) (no (unknown) (unknown) RDW (11.6-14.8) (units (unknown) date) % unknown) (unknown) (no (unknown) (unknown) RDW 13.7 (units (unkn own) date) (11.6-14.8) % unknown) (unknown) (no (unknown) (unknown) RESPIRATORY: Clear (units (unknown) date) to auscultation. unknown) Breath sounds equal bilaterally. No wheezes, (unknown) (no (unknown) (unknown) RESPIRATORY: (units (u nknown) date) Denies dyspnea, unknown) cough, wheezing, hemoptysis, sputum. (unknown) (no (unknown) (unknown) Dominic Viveros (units (unknown) date) D??76??M?? unknown) 5 (unknown) (no (unknown) (unknown) Reevaluation #1: (units (unknown) date) unknown) (unknown) (no (unknown) (unknown) Reevaluation #2: (units (unknown) date) unknown) (unknown) (no (unknown) (unknown) Reevaluation(s) (units (unknown) date) unknown) (unknown) (no (unknown) (unknown) Referrals: (units (unk nown) date) unknown) (unknown) (no (unknown) (unknown) Related Data (units (u nknown) date) unknown) (unknown) (no (unknown) (unknown) Respiratory Rate (units (unknown) date) 17 19 unknown) (unknown) (no (unknown) (unknown) Respiratory Rate (units (unknown) date) 22 12/07/21 20:23 unknown) (unknown) (no (unknown) (unknown) Respiratory Rate (units (unknown) date) 18 18 20 unknown) (unknown) (no (unknown) (unknown) Result diagrams: (units (unknown) date) unknown) (unknown) (no (unknown) (unknown) Review of Systems (units (unknown) date) unknown) (unknown) (no (unknown) (unknown) Emeka Robertson (units (unknown) date) unknown) (unknown) (no (unknown) (unknown) Sudarshan Calderon (units (u nknown) date) unknown) (unknown) (no (unknown) (unknown) S/P CABG x 3 (units (u nknown) date) () unknown) (unknown) (no (unknown) (unknown) S/P cervical (units (u nknown) date) spinal fusion unknown) (unknown) (no (unknown) (unknown) S/P lumbar fusion (units (unknown) date) unknown) (unknown) (no (unknown) (unknown) SARS-CoV-2 (PCR) (units (unknown) date) (Negative) unknown) (unknown) (no (unknown) (unknown) SARS-CoV-2 (PCR) (units (unknown) date) (Negative) unknown) (unknown) (no (unknown) (unknown) SARS-CoV-2 (PCR) (units (unknown) date) Negative unknown) (Negative) (unknown) (no (unknown) (unknown) SKIN: Denies rash, (units (unknown) date) skin lesions, or unknown) other (unknown) (no (unknown) (unknown) SKIN: No rash or (units (unknown) date) erythema of visible unknown) areas (unknown) (no (unknown) (unknown) Sagittal (units (unkno wn) date) unknown) (unknown) (no (unknown) (unknown) Salicylate Stat (units (unknown) date) unknown) (unknown) (no (unknown) (unknown) Salicylates (units (un known) date) (<20) mg/dL unknown) (unknown) (no (unknown) (unknown) Salicylates (units (un known) date) (<20) mg/dL unknown) (unknown) (no (unknown) (unknown) Salicylates < (units (unknown) date) 1.0 (<20) mg/dL unknown) (unknown) (no (unknown) (unknown) Signed By: (units (unk nown) date) unknown) (unknown) (no (unknown) (unknown) Sinuses:? (units (unkn own) date) Visualized sinuses unknown) redemonstrate wall thickening and mucoperiosteal (unknown) (no (unknown) (unknown) Skull and face:? (units (unknown) date) Calvarium and unknown) visualized facial bones appear intact, without (unknown) (no (unknown) (unknown) Smoking Status: (units (unknown) date) Former smoker unknown) (unknown) (no (unknown) (unknown) Smoking Status: (units (unknown) date) Former smoker unknown) (unknown) (no (unknown) (unknown) Social History (units (unknown) date) (Reviewed 12/08/21 unknown) @ 01:57 by Jung Dejesus DO) (unknown) (no (unknown) (unknown) Sodium (units (unkno wn) date) (137-145) mmol/L unknown) (unknown) (no (unknown) (unknown) Sodium (units (unkno wn) date) (137-145) mmol/L unknown) (unknown) (no (unknown) (unknown) Sodium 140 (units (u nknown) date) (137-145) mmol/L unknown) (unknown) (no (unknown) (unknown) Sodium Chloride (units (unknown) date) (Normal Saline unknown) 0.9%) 1,000 mls @ 150 mls/hr IV CONT BLOSSOM (unknown) (no (unknown) (unknown) Soft tissues:? (units (unknown) date) Prevertebral soft unknown) tissues are normal in thickness.? No (unknown) (no (unknown) (unknown) Source: patient, (units (unknown) date) family and EMS unknown) (unknown) (no (unknown) (unknown) Stated Complaint: (units (unknown) date) Back Pain unknown) (unknown) (no (unknown) (unknown) Wvuhoio-HHV-ByD (units (unknown) date) Reductase AdvReac unknown) Mild WEAK Verified 11/28/21 15:33 (unknown) (no (unknown) (unknown) Strong concern (units (unknown) date) that he is unknown) developing withdrawals though he denies frequent (unknown) (no (unknown) (unknown) Substance Use (units ( unknown) date) Type: does not use unknown) (unknown) (no (unknown) (unknown) Sulfa (Sulfonamide (units (unknown) date) Allergy Mild RASH unknown) Verified 11/28/21 15:33 (unknown) (no (unknown) (unknown) Surgical History (units (unknown) date) (Reviewed 12/08/21 unknown) @ 01:57 by Jung Dejesus DO) (unknown) (no (unknown) (unknown) Andre Spear (units ( unknown) date) unknown) (unknown) (no (unknown) (unknown) TECHNIQUE:? (units (un known) date) unknown) (unknown) (no (unknown) (unknown) TSH (units (unkno wn) date) (0.47-4.68) uIU/mL unknown) (unknown) (no (unknown) (unknown) TSH (0.47-4.68) (units (unknown) date) uIU/mL unknown) (unknown) (no (unknown) (unknown) TSH 2.07 (units (unkn own) date) (0.47-4.68) uIU/mL unknown) (unknown) (no (unknown) (unknown) Telemetry Strips (units (unknown) date) unknown) (unknown) (no (unknown) (unknown) Temperature (units (un known) date) unknown) (unknown) (no (unknown) (unknown) Temperature 97.4 (units (unknown) date) F L 12/07/21 20:23 unknown) (unknown) (no (unknown) (unknown) Temperature 97.8 (units (unknown) date) F unknown) (unknown) (no (unknown) (unknown) There is a small (units (unknown) date) right choroidal unknown) fissure cyst redemonstrated.? (unknown) (no (unknown) (unknown) There is mild (units ( unknown) date) cerebral volume unknown) loss, with resultant ventricular and sulcal (unknown) (no (unknown) (unknown) Thyroid (units (unkno wn) date) Stimulating Hormone unknown) Stat (unknown) (no (unknown) (unknown) Tibia/Fibula X-Ray (units (unknown) date) (Signed) unknown) (unknown) (no (unknown) (unknown) Time Seen by (units (u nknown) date) Provider: 12/07/21 unknown) 20:22 (unknown) (no (unknown) (unknown) Time: 06:09 (units (un known) date) unknown) (unknown) (no (unknown) (unknown) Total Bilirubin (units (unknown) date) (0.2-1.3) mg/dL unknown) (unknown) (no (unknown) (unknown) Total Bilirubin (units (unknown) date) (0.2-1.3) mg/dL unknown) (unknown) (no (unknown) (unknown) Total Bilirubin (units (unknown) date) 0.9 (0.2-1.3) unknown) mg/dL (unknown) (no (unknown) (unknown) Total Protein (units ( unknown) date) (6.3-8.2) g/dL unknown) (unknown) (no (unknown) (unknown) Total Protein (units ( unknown) date) (6.3-8.2) g/dL unknown) (unknown) (no (unknown) (unknown) Total Protein (units ( unknown) date) 7.0 (6.3-8.2) unknown) g/dL (unknown) (no (unknown) (unknown) U Benzodiazepines (units (unknown) date) Scrn (Negative) unknown) (unknown) (no (unknown) (unknown) U Benzodiazepines (units (unknown) date) Scrn Positive H unknown) (Negative) (unknown) (no (unknown) (unknown) U Marijuana (THC) (units (unknown) date) Screen unknown) (Negative) (unknown) (no (unknown) (unknown) U Marijuana (THC) (units (unknown) date) Screen Negative unknown) (Negative) (unknown) (no (unknown) (unknown) U Methamphetamines (units (unknown) date) Scrn (Negative) unknown) (unknown) (no (unknown) (unknown) U Methamphetamines (units (unknown) date) Scrn Negative unknown) (Negative) (unknown) (no (unknown) (unknown) U Opiates 300ng/mL (units (unknown) date) cut (Negative) unknown) (unknown) (no (unknown) (unknown) U Opiates 300ng/mL (units (unknown) date) cut Positive H unknown) (Negative) (unknown) (no (unknown) (unknown) U Tricyclic (units (un known) date) Antidepress unknown) (Negative) (unknown) (no (unknown) (unknown) U Tricyclic (units (un known) date) Antidepress unknown) Negative (Negative) (unknown) (no (unknown) (unknown) Ur Amphetamines (units (unknown) date) Screen unknown) (Negative) (unknown) (no (unknown) (unknown) Ur Amphetamines (units (unknown) date) Screen Negative unknown) (Negative) (unknown) (no (unknown) (unknown) Ur Barbiturates (units (unknown) date) Screen unknown) (Negative) (unknown) (no (unknown) (unknown) Ur Barbiturates (units (unknown) date) Screen Negative unknown) (Negative) (unknown) (no (unknown) (unknown) Ur Culture (units (unk nown) date) Indicated? unknown) (unknown) (no (unknown) (unknown) Ur Culture (units (unk nown) date) Indicated? unknown) (unknown) (no (unknown) (unknown) Ur Culture (units (unk nown) date) Indicated? Cult unknown) not indicated (unknown) (no (unknown) (unknown) Ur Leukocyte (units (u nknown) date) Esterase unknown) (NEGATIVE) (unknown) (no (unknown) (unknown) Ur Leukocyte (units (u nknown) date) Esterase unknown) (NEGATIVE) (unknown) (no (unknown) (unknown) Ur Leukocyte (units (u nknown) date) Esterase unknown) Negative (NEGATIVE) (unknown) (no (unknown) (unknown) Ur MDMA Scrn (units (u nknown) date) (Ecstasy) unknown) (Negative) (unknown) (no (unknown) (unknown) Ur MDMA Scrn (units (u nknown) date) (Ecstasy) Negative unknown) (Negative) (unknown) (no (unknown) (unknown) Ur Oxycodone (units (u nknown) date) Screen unknown) (Negative) (unknown) (no (unknown) (unknown) Ur Oxycodone (units (u nknown) date) Screen Negative unknown) (Negative) (unknown) (no (unknown) (unknown) Ur Phencyclidine (units (unknown) date) Scrn (Negative) unknown) (unknown) (no (unknown) (unknown) Ur Phencyclidine (units (unknown) date) Scrn Negative unknown) (Negative) (unknown) (no (unknown) (unknown) Ur Specific (units (un known) date) Falcon unknown) (1.000-1.035) (unknown) (no (unknown) (unknown) Ur Specific (units (un known) date) Falcon unknown) (1.000-1.035) (unknown) (no (unknown) (unknown) Ur Specific (units (un known) date) Falcon 1.020 unknown) (1.000-1.035) (unknown) (no (unknown) (unknown) Ur Squamous Epith (units (unknown) date) Cells (0-5/HPF) unknown) (unknown) (no (unknown) (unknown) Ur Squamous Epith (units (unknown) date) Cells (0-5/HPF) unknown) (unknown) (no (unknown) (unknown) Ur Squamous Epith (units (unknown) date) Cells 0-1 /hpf unknown) (0-5/HPF) (unknown) (no (unknown) (unknown) Urinalysis and (units (unknown) date) Microscopic Stat unknown) (unknown) (no (unknown) (unknown) Urine Appearance (units (unknown) date) unknown) (unknown) (no (unknown) (unknown) Urine Appearance (units (unknown) date) unknown) (unknown) (no (unknown) (unknown) Urine Appearance (units (unknown) date) Clear unknown) (unknown) (no (unknown) (unknown) Urine Bacteria (units (unknown) date) (None) unknown) (unknown) (no (unknown) (unknown) Urine Bacteria (units (unknown) date) (None) unknown) (unknown) (no (unknown) (unknown) Urine Bacteria (units (unknown) date) None seen (None) unknown) (unknown) (no (unknown) (unknown) Urine Bilirubin (units (unknown) date) (NEGATIVE) unknown) (unknown) (no (unknown) (unknown) Urine Bilirubin (units (unknown) date) (NEGATIVE) unknown) (unknown) (no (unknown) (unknown) Urine Bilirubin (units (unknown) date) Negative unknown) (NEGATIVE) (unknown) (no (unknown) (unknown) Urine Cocaine (units ( unknown) date) Screen unknown) (Negative) (unknown) (no (unknown) (unknown) Urine Cocaine (units ( unknown) date) Screen Negative unknown) (Negative) (unknown) (no (unknown) (unknown) Urine Color (units (un known) date) unknown) (unknown) (no (unknown) (unknown) Urine Color (units (un known) date) unknown) (unknown) (no (unknown) (unknown) Urine Color (units (un known) date) Yellow unknown) (unknown) (no (unknown) (unknown) Urine Drug Screen, (units (unknown) date) Rapid Stat unknown) (unknown) (no (unknown) (unknown) Urine Glucose (UA) (units (unknown) date) (Negative) unknown) g/dL (unknown) (no (unknown) (unknown) Urine Glucose (UA) (units (unknown) date) (Negative) g/dL unknown) (unknown) (no (unknown) (unknown) Urine Glucose (UA) (units (unknown) date) Negative unknown) (Negative) g/dL (unknown) (no (unknown) (unknown) Urine Ketones (units ( unknown) date) (NEGATIVE) unknown) (unknown) (no (unknown) (unknown) Urine Ketones (units ( unknown) date) (NEGATIVE) unknown) (unknown) (no (unknown) (unknown) Urine Ketones (units ( unknown) date) Trace H (NEGATIVE) unknown) (unknown) (no (unknown) (unknown) Urine Methadone (units (unknown) date) Screen unknown) (Negative) (unknown) (no (unknown) (unknown) Urine Methadone (units (unknown) date) Screen Negative unknown) (Negative) (unknown) (no (unknown) (unknown) Urine Nitrate (units ( unknown) date) (Negative) unknown) (unknown) (no (unknown) (unknown) Urine Nitrate (units ( unknown) date) (Negative) unknown) (unknown) (no (unknown) (unknown) Urine Nitrate (units ( unknown) date) Negative unknown) (Negative) (unknown) (no (unknown) (unknown) Urine Occult Blood (units (unknown) date) (Negative) unknown) (unknown) (no (unknown) (unknown) Urine Occult Blood (units (unknown) date) (Negative) unknown) (unknown) (no (unknown) (unknown) Urine Occult Blood (units (unknown) date) Negative unknown) (Negative) (unknown) (no (unknown) (unknown) Urine Protein (units ( unknown) date) (Negative) unknown) (unknown) (no (unknown) (unknown) Urine Protein (units ( unknown) date) (Negative) unknown) (unknown) (no (unknown) (unknown) Urine Protein (units ( unknown) date) Negative unknown) (Negative) (unknown) (no (unknown) (unknown) Urine RBC (units (unkn own) date) (0-5/HPF) unknown) (unknown) (no (unknown) (unknown) Urine RBC (units (unkn own) date) (0-5/HPF) unknown) (unknown) (no (unknown) (unknown) Urine RBC None (units (unknown) date) seen (0-5/HPF) unknown) (unknown) (no (unknown) (unknown) Urine Urobilinogen (units (unknown) date) (0.2) E.U./dL unknown) (unknown) (no (unknown) (unknown) Urine Urobilinogen (units (unknown) date) (0.2) E.U./dL unknown) (unknown) (no (unknown) (unknown) Urine Urobilinogen (units (unknown) date) 0.2 (0.2) unknown) E.U./dL (unknown) (no (unknown) (unknown) Urine WBC (units (unkn own) date) (0-5/HPF) unknown) (unknown) (no (unknown) (unknown) Urine WBC (units (unkn own) date) (0-5/HPF) unknown) (unknown) (no (unknown) (unknown) Urine WBC None (units (unknown) date) seen (0-5/HPF) unknown) (unknown) (no (unknown) (unknown) Urine pH (units (unkno wn) date) (4.5-8.0) unknown) (unknown) (no (unknown) (unknown) Urine pH (units (unkno wn) date) (4.5-8.0) unknown) (unknown) (no (unknown) (unknown) Urine pH 5.0 (units (unknown) date) (4.5-8.0) unknown) (unknown) (no (unknown) (unknown) Vascular (units (unkno wn) date) Ultrasound (Signed) unknown) (unknown) (no (unknown) (unknown) Ventricular (units (un known) date) bigeminy unknown) (unknown) (no (unknown) (unknown) Vital Signs (units (un known) date) unknown) (unknown) (no (unknown) (unknown) Vital signs: (units (u nknown) date) unknown) (unknown) (no (unknown) (unknown) Charles,Lexx (units (u nknown) date) unknown) (unknown) (no (unknown) (unknown) [Embedded Image (units (unknown) date) Not Available] unknown) (unknown) (no (unknown) (unknown) [[id number] (units (unknown) date) REDUCTASE unknown) (unknown) (no (unknown) (unknown) [SULFA (units (unkno wn) date) (SULFONAMIDE unknown) (unknown) (no (unknown) (unknown) acetaminophen 300 (units (unknown) date) mg-codeine 30 mg 1 unknown) tab PO Q6HR PRN 10/08/21 10/08/21 (unknown) (no (unknown) (unknown) acetaminophen 325 (units (unknown) date) mg tablet 650 mg PO unknown) Q6H PRN #60 tab 11/06/20 (unknown) (no (unknown) (unknown) agree for admit. (units (unknown) date) At this time unknown) nighttime hospitalist is aware and signing out to (unknown) (no (unknown) (unknown) albuterol sulfate (units (unknown) date) 1.25 mg/3 mL 2.5 mg unknown) (6 mL) INHALATION QID #90 ml 11/28/21 (unknown) (no (unknown) (unknown) alcohol intake (units (unknown) date) frequency: unknown) holidays/special occasions only (unknown) (no (unknown) (unknown) alcohol intake: (units (unknown) date) current unknown) (unknown) (no (unknown) (unknown) and coronal (units (un known) date) reformats were then unknown) constructed.? For radiation dose reduction, the (unknown) (no (unknown) (unknown) and shape.? (units (un known) date) unknown) (unknown) (no (unknown) (unknown) appears (units (unkno wn) date) preserved.? There unknown) is intracranial internal carotid artery (unknown) (no (unknown) (unknown) approximately 0.2 (units (unknown) date) cm. unknown) (unknown) (no (unknown) (unknown) approximately 0.4 (units (unknown) date) cm and minimal unknown) anterolisthesis at C3-C4 measuring (unknown) (no (unknown) (unknown) arthropathy (units (un known) date) throughout the unknown) cervical spine.? Visualized superior ribs are (unknown) (no (unknown) (unknown) atherosclerosis.? (units (unknown) date) unknown) (unknown) (no (unknown) (unknown) benzonatate 100 mg (units (unknown) date) capsule 100 mg PO unknown) TID PRN #14 cap 03/05/21 (unknown) (no (unknown) (unknown) buprenorphine (units ( unknown) date) [BUPRENORPHINE] unknown) AdvReac Mild NAUSEA, Verified 11/28/21 15:33 (unknown) (no (unknown) (unknown) buprenorphine, (units (unknown) date) hyoscyamine, unknown) [id number] Reductase Inhibitor, diazepam (unknown) (no (unknown) (unknown) cefdinir 300 mg (units (unknown) date) capsule 300 mg PO unknown) BID #20 cap 10/09/21 (unknown) (no (unknown) (unknown) celecoxib (units (unkn own) date) [CELECOXIB] Allergy unknown) Mild SWELLING Verified 11/28/21 15:33 (unknown) (no (unknown) (unknown) cetirizine 10 mg (units (unknown) date) capsule (Zyrtec) 10 unknown) mg PO DAILY 05/22/19 10/08/21 (unknown) (no (unknown) (unknown) chronic back pain, (units (unknown) date) ataxia, AFib, COPD unknown) presents for evaluation of a witnessed (unknown) (no (unknown) (unknown) chronic sinusitis. (units (unknown) date) unknown) (unknown) (no (unknown) (unknown) constipation, (units ( unknown) date) melena. unknown) (unknown) (no (unknown) (unknown) consumed a large (units (unknown) date) amount of alcohol unknown) tonight in addition to many other medications (unknown) (no (unknown) (unknown) contusion, (units (unk nown) date) laceration, unknown) hematoma or evidence of depressed skull fracture (unknown) (no (unknown) (unknown) degeneration also (units (unknown) date) demonstrated at unknown) C2-C3 and C3-C4.? There is multilevel moderate (unknown) (no (unknown) (unknown) degenerative disc (units (unknown) date) disease within the unknown) visualized upper thoracic spine.? Mild disc (unknown) (no (unknown) (unknown) diazepam [From (units (unknown) date) Valium] AdvReac unknown) Confusion Verified 11/28/21 15:33 (unknown) (no (unknown) (unknown) diclofenac sodium (units (unknown) date) 1 % topical gel 2 g unknown) TOPICAL QID #100 g 11/19/21 (unknown) (no (unknown) (unknown) difficult time (units ( unknown) date) ambulating and is unknown) unsafe to discharge at this time. His has (unknown) (no (unknown) (unknown) drinking. (units (unkn own) date) Phenobarb ordered unknown) and moved to room with monitor (unknown) (no (unknown) (unknown) ferrous sulfate (units (unknown) date) 325 mg (65 mg 325 unknown) mg PO DAILY 10/19/19 10/08/21 (unknown) (no (unknown) (unknown) fluticasone (units (un known) date) propionate 50 1 unknown) spray INTRANASAL DAILY PRN #0 11/02/17 10/08/21 (unknown) (no (unknown) (unknown) following (units (unkn own) date) unknown) (unknown) (no (unknown) (unknown) furosemide 40 mg (units (unknown) date) tablet (Lasix) 40 unknown) mg PO DAILY 10/08/21 10/08/21 (unknown) (no (unknown) (unknown) glipizide 2.5 mg (units (unknown) date) tablet, extended unknown) 2.5 mg PO DAILY 10/08/21 10/08/21 (unknown) (no (unknown) (unknown) ground level fall. (units (unknown) date) He stumbled and unknown) fell forward, striking his nose. There was (unknown) (no (unknown) (unknown) hand (units (unkno wn) date) unknown) (unknown) (no (unknown) (unknown) hematomas.? No (units (unknown) date) apical unknown) pneumothoraces.? (unknown) (no (unknown) (unknown) household members: (units (unknown) date) spouse unknown) (unknown) (no (unknown) (unknown) hyoscyamine (units (un known) date) [HYOSCYAMINE] unknown) AdvReac Mild LEG Verified 11/28/21 15:33 (unknown) (no (unknown) (unknown) intact.? (units (unkno wn) date) unknown) (unknown) (no (unknown) (unknown) iron) (units (unkno wn) date) tablet,delayed unknown) release (unknown) (no (unknown) (unknown) latex [LATEX] (units ( unknown) date) Allergy Mild RASH unknown) Verified 11/28/21 15:33 (unknown) (no (unknown) (unknown) lesions.? (units (unkn own) date) unknown) (unknown) (no (unknown) (unknown) levalbuterol HCl (units (unknown) date) 1.25 mg/3 mL 3 ml unknown) INHALATION Q6H PRN 10/16/18 10/08/21 (unknown) (no (unknown) (unknown) levalbuterol (units (u nknown) date) tartrate 45 1 puff unknown) INHALATION Q4-6H PRN #15 06/22/18 (unknown) (no (unknown) (unknown) mastoid air cells (units (unknown) date) are clear. unknown) (unknown) (no (unknown) (unknown) mcg/actuation (units ( unknown) date) aerosol inhaler unknown) gram (unknown) (no (unknown) (unknown) mcg/actuation (units ( unknown) date) nasal unknown) (unknown) (no (unknown) (unknown) measuring (units (unkn own) date) unknown) (unknown) (no (unknown) (unknown) meclizine 25 mg (units (unknown) date) tablet 25 mg PO QID unknown) PRN #30 tab 10/09/21 (unknown) (no (unknown) (unknown) methocarbamol 500 (units (unknown) date) mg tablet 500 mg PO unknown) Q8H PRN #14 tab 11/19/21 (unknown) (no (unknown) (unknown) metoprolol (units (unk nown) date) tartrate 100 mg unknown) tablet 100 mg PO BID 10/16/18 10/08/21 (unknown) (no (unknown) (unknown) mg tablet (units (unkn own) date) (Percocet) unknown) (unknown) (no (unknown) (unknown) mild distress. (units (unknown) date) GCS 15, smells of unknown) alcohol and slurring his words (unknown) (no (unknown) (unknown) moderate (units (unkno wn) date) unknown) (unknown) (no (unknown) (unknown) multiple levels as (units (unknown) date) described. unknown) (unknown) (no (unknown) (unknown) multivitamin (units (u nknown) date) (Multiple Vitamins) unknown) 1 tab PO DAILY #0 12/20/16 10/08/21 (unknown) (no (unknown) (unknown) no loss of (units (unk nown) date) consciousness and unknown) he has had no nausea or vomiting. He denies any (unknown) (no (unknown) (unknown) other injuries (units (unknown) date) such as neck, back unknown) or extremities. His states that he (unknown) (no (unknown) (unknown) oxycodone 5 mg (units (unknown) date) tablet 10 mg PO unknown) Q4-5H PRN #60 tab 11/06/20 (unknown) (no (unknown) (unknown) oxycodone-acetamin (units (unknown) date) ophen 5 mg-325 1 unknown) tab PO Q8H PRN #10 tab 11/19/21 (unknown) (no (unknown) (unknown) oxycodone-acetamin (units (unknown) date) ophen 5 mg-325 1 unknown) tab PO TID PRN #10 tab 11/19/21 (unknown) (no (unknown) (unknown) paravertebral (units ( unknown) date) unknown) (unknown) (no (unknown) (unknown) patient (units (unkno wn) date) unknown) (unknown) (no (unknown) (unknown) prednisone 20 mg (units (unknown) date) tablet 20 mg PO unknown) DAILY #32 tab 11/28/21 (unknown) (no (unknown) (unknown) prednisone 50 mg (units (unknown) date) tablet 50 mg PO unknown) DAILY #5 tab 11/19/21 (unknown) (no (unknown) (unknown) prominence.? (units (u nknown) date) unknown) (unknown) (no (unknown) (unknown) release 24 hr (units ( unknown) date) (Glucotrol XL) unknown) (unknown) (no (unknown) (unknown) seizures, (units (unkn own) date) incoordination. unknown) (unknown) (no (unknown) (unknown) sequelae of (units (un known) date) unknown) (unknown) (no (unknown) (unknown) sinusitis.? The (units (unknown) date) unknown) (unknown) (no (unknown) (unknown) size.? (units (unkno wn) date) unknown) (unknown) (no (unknown) (unknown) solution for (units (u nknown) date) nebulization unknown) (unknown) (no (unknown) (unknown) solution for (units (u nknown) date) nebulization unknown) (unknown) (no (unknown) (unknown) spray,suspension (units (unknown) date) unknown) (unknown) (no (unknown) (unknown) study.? There are (units (unknown) date) postsurgical unknown) changes also redemonstrated status post prior (unknown) (no (unknown) (unknown) substance use (units ( unknown) date) type: does not use unknown) (unknown) (no (unknown) (unknown) suspicious (units (unk nown) date) unknown) (unknown) (no (unknown) (unknown) tablet (units (unkno wn) date) unknown) (unknown) (no (unknown) (unknown) that he would (units ( unknown) date) routinely take. He unknown) is activated as a modified trauma. (unknown) (no (unknown) (unknown) the prior (units (unkn own) date) unknown) (unknown) (no (unknown) (unknown) thickening (units (unk nown) date) unknown) (unknown) (no (unknown) (unknown) to the (units (unkno wn) date) unknown) (unknown) (no (unknown) (unknown) trazodone 100 mg (units (unknown) date) tablet 400 tab PO unknown) BEDTIME 12/09/17 10/08/21 (unknown) (no (unknown) (unknown) varenicline (units (un known) date) [VARENICLINE] unknown) AdvReac Severe Paranoia Verified 11/28/21 15:33 (unknown) (no (unknown) (unknown) vertex, with (units (u nknown) date) coronal and unknown) sagittal reformats.? For radiation dose reduction, the (unknown) (no (unknown) (unknown) vomiting/hypertens (units (unknown) date) ion/dizziness. He unknown) has spoken with and patient and they (unknown) (no (unknown) (unknown) was used:? (units (unk nown) date) automated exposure unknown) control, adjustment of mA and/or kV according to (unknown) (no (unknown) (unknown) within the (units (unk nown) date) visualized left unknown) maxillary sinus suggesting sequelae of chronic (unknown) (no (unknown) (unknown) without erythema, (units (unknown) date) tonsillar unknown) hypertrophy or exudate. Airway patent. Result panel 42 (unknown) (no (unknown) (unknown) (no value) (units (unk nown) date) unknown) (unknown) (no (unknown) (unknown) Radiologist's (units ( unknown) date) Impression: unknown) (unknown) (no (unknown) (unknown) (no value) (units (unk nown) date) unknown) (unknown) (no (unknown) (unknown) Date of Service: (units (unknown) date) 12/08/21 unknown) (unknown) (no (unknown) (unknown) (no value) (units (unk nown) date) unknown) (unknown) (no (unknown) (unknown) 12/07/21 23:05 (units (unknown) date) unknown) (unknown) (no (unknown) (unknown) [address] [place] [address] (units (unknown) date) unknown) (unknown) (no (unknown) (unknown) ANXIETY, (units (unkno wn) date) unknown) (unknown) (no (unknown) (unknown) Admin: 12/07/21 (units (unknown) date) 23:25 Dose: 150 unknown) mls/hr (unknown) (no (unknown) (unknown) Allergies (units (unkn own) date) unknown) (unknown) (no (unknown) (unknown) [place], [place] (units ( unknown) date) [id number] unknown) (unknown) (no (unknown) (unknown) CT Scan Report (units (unknown) date) unknown) (unknown) (no (unknown) (unknown) Close (units (unkno wn) date) unknown) (unknown) (no (unknown) (unknown) DIZZINESS (units (unkn own) date) unknown) (unknown) (no (unknown) (unknown) Documented by: (units (unknown) date) [email or web address] unknown) (unknown) (no (unknown) (unknown) Documented by: (units (unknown) date) JZIGLAR unknown) (unknown) (no (unknown) (unknown) Documented by: (units (unknown) date) KPETERSON unknown) (unknown) (no (unknown) (unknown) Documented by: (units (unknown) date) RLAZANI unknown) (unknown) (no (unknown) (unknown) ED Orders (units (unkn own) date) unknown) (unknown) (no (unknown) (unknown) EXPOSURE (units (unkno wn) date) unknown) (unknown) (no (unknown) (unknown) Emergency Report (units (unknown) date) unknown) (unknown) (no (unknown) (unknown) Home Medications (units (unknown) date) unknown) (unknown) (no (unknown) (unknown) [facility] (units (unknown) date) unknown) (unknown) (no (unknown) (unknown) [facility] (units (unknown) date) [address] unknown) [place] [address] (unknown) (no (unknown) (unknown) JERKING, (units (unkno wn) date) unknown) (unknown) (no (unknown) (unknown) Lab Results (units (un known) date) unknown) (unknown) (no (unknown) (unknown) Last Admin: (units (un known) date) 12/08/21 01:35 unknown) Dose: 1 tab (unknown) (no (unknown) (unknown) Last Admin: (units (un known) date) 12/08/21 02:34 unknown) Dose: 4 mg (unknown) (no (unknown) (unknown) Last Admin: (units (un known) date) 12/08/21 04:04 unknown) Dose: 0.5 mg (unknown) (no (unknown) (unknown) Last Admin: (units (un known) date) 12/08/21 05:53 unknown) Dose: 4 mg (unknown) (no (unknown) (unknown) Last Admin: (units (un known) date) 12/08/21 05:53 unknown) Dose: 40 mg (unknown) (no (unknown) (unknown) Last Admin: (units (un known) date) 12/08/21 06:11 unknown) Dose: 260 mg (unknown) (no (unknown) (unknown) Last Admin: (units (un known) date) 12/08/21 06:42 unknown) Dose: 20 mg (unknown) (no (unknown) (unknown) Last Admin: (units (un known) date) 12/08/21 06:47 unknown) Dose: Not Given (unknown) (no (unknown) (unknown) Last Admin: (units (un known) date) 12/08/21 07:16 unknown) Dose: 10 mg (unknown) (no (unknown) (unknown) Last Admin: (units (un known) date) 12/08/21 07:17 unknown) Dose: 2.5 mg (unknown) (no (unknown) (unknown) Last Infusion: (units (unknown) date) 12/08/21 04:00 unknown) Dose: 0 mls/hr (unknown) (no (unknown) (unknown) Launch?Image (units (u nknown) date) unknown) (unknown) (no (unknown) (unknown) MINUTES (units (unkno wn) date) unknown) (unknown) (no (unknown) (unknown) NAUSEA W/I (units (unk nown) date) unknown) (unknown) (no (unknown) (unknown) Point of Care (units ( unknown) date) Testing unknown) (unknown) (no (unknown) (unknown) Previous Rx's (units ( unknown) date) unknown) (unknown) (no (unknown) (unknown) Signed (units (unkno wn) date) unknown) (unknown) (no (unknown) (unknown) Stop: 12/08/21 (units (unknown) date) 01:26 unknown) (unknown) (no (unknown) (unknown) Stop: 12/08/21 (units (unknown) date) 02:32 unknown) (unknown) (no (unknown) (unknown) Stop: 12/08/21 (units (unknown) date) 04:01 unknown) (unknown) (no (unknown) (unknown) Stop: 12/08/21 (units (unknown) date) 05:47 unknown) (unknown) (no (unknown) (unknown) Stop: 12/08/21 (units (unknown) date) 05:50 unknown) (unknown) (no (unknown) (unknown) Stop: 12/08/21 (units (unknown) date) 06:04 unknown) (unknown) (no (unknown) (unknown) Stop: 12/08/21 (units (unknown) date) 06:31 unknown) (unknown) (no (unknown) (unknown) Stop: 12/08/21 (units (unknown) date) 07:12 unknown) (unknown) (no (unknown) (unknown) Stop: 12/08/21 (units (unknown) date) 07:16 unknown) (unknown) (no (unknown) (unknown) Vital Signs - 8 hr (units (unknown) date) unknown) (unknown) (no (unknown) (unknown) W/EXTENDED (units (unk nown) date) unknown) (unknown) (no (unknown) (unknown) (no value) (units (unk nown) date) unknown) (unknown) (no (unknown) (unknown) 12/07/21 12/07/21 (units (unknown) date) 12/07/21 unknown) Range/Units (unknown) (no (unknown) (unknown) 12/07/21 12/08/21 (units (unknown) date) Range/Units unknown) (unknown) (no (unknown) (unknown) 23:05 23:05 23:05 (units (unknown) date) unknown) (unknown) (no (unknown) (unknown) 23:05 23:44 23:57 (units (unknown) date) unknown) (unknown) (no (unknown) (unknown) 23:57 01:33 (units (un known) date) unknown) (unknown) (no (unknown) (unknown) 12/08/21 (units (unkno wn) date) unknown) (unknown) (no (unknown) (unknown) Intractable nausea (units (unknown) date) and vomiting unknown) (unknown) (no (unknown) (unknown) Medication (units (unk nown) date) Instructions unknown) Recorded (unknown) (no (unknown) (unknown) Medication (units (unk nown) date) Instructions unknown) Recorded Confirmed (unknown) (no (unknown) (unknown) been contacted and (units (unknown) date) she will be able to unknown) come pick him up in the morning. (unknown) (no (unknown) (unknown) daytime (units (unkno wn) date) hospitalist to unknown) accept patient. (unknown) (no (unknown) (unknown) facet (units (unkno wn) date) unknown) (unknown) (no (unknown) (unknown) junction (units (unkno wn) date) unknown) (unknown) (no (unknown) (unknown) of (units (unkno wn) date) unknown) (unknown) (no (unknown) (unknown) rales, or rhonchi. (units (unknown) date) unknown) (unknown) (no (unknown) (unknown) <Ezra Jasmine, (units (unknown) date) - Last Filed: unknown) 12/08/21 08:06> (unknown) (no (unknown) (unknown) <Jung [place], DO (units (unknown) date) - Last Filed: unknown) 12/08/21 06:53> (unknown) (no (unknown) (unknown) (Athenol) (units (unkn own) date) unknown) (unknown) (no (unknown) (unknown) (More??) (units (unkno wn) date) unknown) (unknown) (no (unknown) (unknown) (Tessalon Perles) (units (unknown) date) unknown) (unknown) (no (unknown) (unknown) (Xopenex HFA) (units ( unknown) date) unknown) (unknown) (no (unknown) (unknown) - (units (unkno wn) date) unknown) (unknown) (no (unknown) (unknown) [phone] (units (unkn own) date) unknown) (unknown) (no (unknown) (unknown) 08/11/20 (units (unkno wn) date) unknown) (unknown) (no (unknown) (unknown) 08/16/20 (units (unkno wn) date) unknown) (unknown) (no (unknown) (unknown) 08/28/20 (units (unkno wn) date) unknown) (unknown) (no (unknown) (unknown) 09/15/21 (units (unkno wn) date) unknown) (unknown) (no (unknown) (unknown) 10/07/21 (units (unkno wn) date) unknown) (unknown) (no (unknown) (unknown) 10/08/21 (units (unkno wn) date) unknown) (unknown) (no (unknown) (unknown) 10/31/20 (units (unkno wn) date) unknown) (unknown) (no (unknown) (unknown) 11/04/20 (units (unkno wn) date) unknown) (unknown) (no (unknown) (unknown) 11/07/20 (units (unkno wn) date) unknown) (unknown) (no (unknown) (unknown) 11/19/21 (units (unkno wn) date) unknown) (unknown) (no (unknown) (unknown) 11/22/20 (units (unkno wn) date) unknown) (unknown) (no (unknown) (unknown) 11/28/21 (units (unkno wn) date) unknown) (unknown) (no (unknown) (unknown) 12/07/21 (units (unkno wn) date) unknown) (unknown) (no (unknown) (unknown) 12/07/21 23:21 (units (unknown) date) unknown) (unknown) (no (unknown) (unknown) 12/07/21 23:44 (units (unknown) date) unknown) (unknown) (no (unknown) (unknown) 12/07/21 23:57 (units (unknown) date) unknown) (unknown) (no (unknown) (unknown) 12/08/21 03:22 (units (unknown) date) unknown) (unknown) (no (unknown) (unknown) 12/08/21 06:48 (units (unknown) date) unknown) (unknown) (no (unknown) (unknown) 12/28/20 (units (unkno wn) date) unknown) (unknown) (no (unknown) (unknown) 05:35 12/08/21 (units (unknown) date) unknown) (unknown) (no (unknown) (unknown) 05:37 12/08/21 (units (unknown) date) unknown) (unknown) (no (unknown) (unknown) 06:32 (units (unkno wn) date) unknown) (unknown) (no (unknown) (unknown) 06:33 12/08/21 (units (unknown) date) unknown) (unknown) (no (unknown) (unknown) 03/05/21 (units (unkno wn) date) unknown) (unknown) (no (unknown) (unknown) 07:00 12/08/21 (units (unknown) date) unknown) (unknown) (no (unknown) (unknown) 07:18 (units (unkno wn) date) unknown) (unknown) (no (unknown) (unknown) 04/16/21 (units (unkno wn) date) unknown) (unknown) (no (unknown) (unknown) 1. No acute (units (un known) date) intracranial unknown) abnormality. (unknown) (no (unknown) (unknown) 1.? No acute (units (u nknown) date) fracture or unknown) subluxation. (unknown) (no (unknown) (unknown) 12 point review of (units (unknown) date) systems is negative unknown) except for those stated above (unknown) (no (unknown) (unknown) 07/18/20 (units (unkno wn) date) unknown) (unknown) (no (unknown) (unknown) 2. Bony remodeling (units (unknown) date) in the left unknown) maxillary sinus redemonstrated consistent with (unknown) (no (unknown) (unknown) 2. Postsurgical (units (unknown) date) changes unknown) redemonstrated throughout the cervical spine with fusion (unknown) (no (unknown) (unknown) 3. Mild cerebral (units (unknown) date) volume loss.? unknown) (unknown) (no (unknown) (unknown) 76-year-old male (units (unknown) date) former smoker with unknown) heavy alcohol abuse today and history of (unknown) (no (unknown) (unknown) 7:00 a.m. s/o from (units (unknown) date) dr dejesus, patient unknown) will need admission for intractable (unknown) (no (unknown) (unknown) ? (units (unkno wn) date) unknown) (unknown) (no (unknown) (unknown) ? (units (unkno wn) date) unknown) (unknown) (no (unknown) (unknown) ?Minimal (units (unkno wn) date) anterolisthesis unknown) also demonstrated at T1-T2.? Findings are similar to (unknown) (no (unknown) (unknown) ACDF at (units (unkno wn) date) unknown) (unknown) (no (unknown) (unknown) ALT (<50) (units ( unknown) date) IU/L unknown) (unknown) (no (unknown) (unknown) ALT (<50) IU/L (units (unknown) date) unknown) (unknown) (no (unknown) (unknown) ALT 31 (<50) (units (unknown) date) IU/L unknown) (unknown) (no (unknown) (unknown) ANTIBIOTICS)] (units ( unknown) date) unknown) (unknown) (no (unknown) (unknown) AST (17-59) (units (unknown) date) IU/L unknown) (unknown) (no (unknown) (unknown) AST (17-59) (units (unknown) date) IU/L unknown) (unknown) (no (unknown) (unknown) AST 32 (17-59) (units (unknown) date) IU/L unknown) (unknown) (no (unknown) (unknown) Accession Number: (units (unknown) date) [id number] ?? unknown) (unknown) (no (unknown) (unknown) Accession Number: (units (unknown) date) [id number] ?? unknown) (unknown) (no (unknown) (unknown) Acct:[id number] (units (unknown) date) unknown) (unknown) (no (unknown) (unknown) Acetaminophen (units ( unknown) date) (10-30) ug/mL unknown) (unknown) (no (unknown) (unknown) Acetaminophen (units ( unknown) date) (10-30) ug/mL unknown) (unknown) (no (unknown) (unknown) Acetaminophen < (units (unknown) date) 10 (10-30) ug/mL unknown) (unknown) (no (unknown) (unknown) Acetaminophen/Code (units (unknown) date) ine Phosphate unknown) (Codeine/Acetaminop hen 30/300 Tablet) 1 tab PO (unknown) (no (unknown) (unknown) Achalasia (units (unkn own) date) unknown) (unknown) (no (unknown) (unknown) Admit Date/Time: (units (unknown) date) 12/08/21 08:04 unknown) (unknown) (no (unknown) (unknown) Admit Provider: (units (unknown) date) Aditya Tapia unknown) (unknown) (no (unknown) (unknown) Age/Sex: 76 / M (units (unknown) date) unknown) (unknown) (no (unknown) (unknown) Age/Sex: 76 / M (units (unknown) date) unknown) (unknown) (no (unknown) (unknown) Albumin (units (unkno wn) date) (3.5-5.0) g/dL unknown) (unknown) (no (unknown) (unknown) Albumin (units (unkno wn) date) (3.5-5.0) g/dL unknown) (unknown) (no (unknown) (unknown) Albumin 4.1 (units ( unknown) date) (3.5-5.0) g/dL unknown) (unknown) (no (unknown) (unknown) Albumin/Globulin (units (unknown) date) Ratio (1.0-2.8) unknown) (unknown) (no (unknown) (unknown) Albumin/Globulin (units (unknown) date) Ratio (1.0-2.8) unknown) (unknown) (no (unknown) (unknown) Albumin/Globulin (units (unknown) date) Ratio 1.4 unknown) (1.0-2.8) (unknown) (no (unknown) (unknown) Albuterol (units (unkn own) date) (Albuterol 2.5 Mg/3 unknown) Ml Neb (Adult)) 2.5 mg INH NOW ONE (unknown) (no (unknown) (unknown) Alkaline (units (unkno wn) date) Phosphatase unknown) (38-126) U/L (unknown) (no (unknown) (unknown) Alkaline (units (unkno wn) date) Phosphatase unknown) (38-126) U/L (unknown) (no (unknown) (unknown) Alkaline (units (unkno wn) date) Phosphatase 64 unknown) (38-126) U/L (unknown) (no (unknown) (unknown) Allergy/Adv: (units (u nknown) date) celecoxib, latex, unknown) Sulfa (Sulfonamide Antibiotics), varenicline, (unknown) (no (unknown) (unknown) Allergy/AdvReac (units (unknown) date) Type Severity unknown) Reaction Status Date / Time (unknown) (no (unknown) (unknown) Anginal pain (units (u nknown) date) unknown) (unknown) (no (unknown) (unknown) Ankle X-Ray (units (un known) date) (Signed) unknown) (unknown) (no (unknown) (unknown) Antibiotics) (units (u nknown) date) unknown) (unknown) (no (unknown) (unknown) Approved by: (units (u nknown) date) Maxim Valadez, unknown) Clifford on 12/07/2021 at 21:44 ? (unknown) (no (unknown) (unknown) Approved by: (units (u nknown) date) Maxim Valadez, unknown) Clifford on 12/07/2021 at 21:48 ? (unknown) (no (unknown) (unknown) Asthma (units (unkno wn) date) unknown) (unknown) (no (unknown) (unknown) Atrial (units (unkno wn) date) fibrillation unknown) (unknown) (no (unknown) (unknown) BACK: Nontender (units (unknown) date) without deformity unknown) or crepitance. No flank tenderness. (unknown) (no (unknown) (unknown) BUN (9-20) (units (unknown) date) mg/dL unknown) (unknown) (no (unknown) (unknown) BUN (9-20) (units ( unknown) date) mg/dL unknown) (unknown) (no (unknown) (unknown) BUN 21 H (units (unk nown) date) (9-20) mg/dL unknown) (unknown) (no (unknown) (unknown) BUN/Creatinine (units (unknown) date) Ratio (6-22) unknown) (unknown) (no (unknown) (unknown) BUN/Creatinine (units (unknown) date) Ratio (-) unknown) (unknown) (no (unknown) (unknown) BUN/Creatinine (units (unknown) date) Ratio 23.9 H unknown) (6-22) (unknown) (no (unknown) (unknown) Baso # (Auto) (units ( unknown) date) (0-100) /uL unknown) (unknown) (no (unknown) (unknown) Baso # (Auto) (units ( unknown) date) (0-100) /uL unknown) (unknown) (no (unknown) (unknown) Baso # (Auto) 100 (units (unknown) date) (0-100) /uL unknown) (unknown) (no (unknown) (unknown) Baso % (Auto) (units ( unknown) date) (0-2) % unknown) (unknown) (no (unknown) (unknown) Baso % (Auto) (units ( unknown) date) (0-2) % unknown) (unknown) (no (unknown) (unknown) Baso % (Auto) 0.8 (units (unknown) date) (0-2) % unknown) (unknown) (no (unknown) (unknown) Blood Culture Stat (units (unknown) date) unknown) (unknown) (no (unknown) (unknown) Blood Pressure (units (unknown) date) 159/98 H 12/07/21 unknown) 20:23 (unknown) (no (unknown) (unknown) Blood Pressure (units (unknown) date) 194/102 H 228/109 H unknown) (unknown) (no (unknown) (unknown) Blood Pressure (units (unknown) date) 207/103 H 207/103 H unknown) (unknown) (no (unknown) (unknown) Bones:? No (units (unk nown) date) fractures or unknown) subluxation.? There is anterolisthesis at C2-C3 (unknown) (no (unknown) (unknown) Brain MRI (Signed) (units (unknown) date) unknown) (unknown) (no (unknown) (unknown) Brain:? No (units (unkn own) date) intracranial unknown) hemorrhage, mass, or mass effect.? The adams-white matter (unknown) (no (unknown) (unknown) C4-C5 and C7-T1.? (units (unknown) date) There is also unknown) fusion at C5-C6 and C6-C7.? There is mild to (unknown) (no (unknown) (unknown) CARDIOVASCULAR: (units (unknown) date) Denies chest pain, unknown) palpitations, orthopnea, edema, (unknown) (no (unknown) (unknown) CARDIOVASCULAR: (units (unknown) date) Regular rate and unknown) rhythm without murmurs, gallops, or rubs. (unknown) (no (unknown) (unknown) COMPARISON:? (units (u nknown) date) [facility], unknown) CT, CT CERVICAL SPINE WO [facility], 04/16/2021, 12:21. (unknown) (no (unknown) (unknown) COMPARISON:? (units (u nknown) date) [facility], unknown) CT, CT HEAD/BRAIN WO [facility], 04/16/2021, 12:21. (unknown) (no (unknown) (unknown) COPD (chronic (units ( unknown) date) obstructive unknown) pulmonary disease) (unknown) (no (unknown) (unknown) COVID19 -Nasal (units (unknown) date) RAPID/Pre-Proc Stat unknown) (unknown) (no (unknown) (unknown) CSF spaces:? Basal (units (unknown) date) cisterns are unknown) patent.? The ventricles are symmetric in size (unknown) (no (unknown) (unknown) CT - cervical (units ( unknown) date) spine: unknown) (unknown) (no (unknown) (unknown) CT lumbar spine wo (units (unknown) date) con Stat unknown) (unknown) (no (unknown) (unknown) CT scan - head: (units (unknown) date) unknown) (unknown) (no (unknown) (unknown) Calcium (units (unkno wn) date) (8.4-10.2) mg/dL unknown) (unknown) (no (unknown) (unknown) Calcium (units (unkno wn) date) (8.4-10.2) mg/dL unknown) (unknown) (no (unknown) (unknown) Calcium 8.4 (units ( unknown) date) (8.4-10.2) mg/dL unknown) (unknown) (no (unknown) (unknown) Call,Francisco J (units (unk nown) date) unknown) (unknown) (no (unknown) (unknown) Carbon Dioxide (units (unknown) date) (22-32) mmol/L unknown) (unknown) (no (unknown) (unknown) Carbon Dioxide (units (unknown) date) (22-32) mmol/L unknown) (unknown) (no (unknown) (unknown) Carbon Dioxide (units (unknown) date) 27 (22-32) unknown) mmol/L (unknown) (no (unknown) (unknown) Cervical Spine CT (units (unknown) date) (Signed) unknown) (unknown) (no (unknown) (unknown) Cervical spinal (units (unknown) date) stenosis unknown) (unknown) (no (unknown) (unknown) Chest CTA (Signed) (units (unknown) date) unknown) (unknown) (no (unknown) (unknown) Chest X-Ray (units (un known) date) (Signed) unknown) (unknown) (no (unknown) (unknown) Chest/Abdomen/Pelv (units (unknown) date) is CTA (Signed) unknown) (unknown) (no (unknown) (unknown) Chief Complaint: (units (unknown) date) Trauma unknown) (unknown) (no (unknown) (unknown) Chloride (units (unkno wn) date) (98-107) mmol/L unknown) (unknown) (no (unknown) (unknown) Chloride (units (unkno wn) date) (98-107) mmol/L unknown) (unknown) (no (unknown) (unknown) Chloride 104 (units (unknown) date) (98-107) mmol/L unknown) (unknown) (no (unknown) (unknown) 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 (10/22/16) (unknown) (no (unknown) (unknown) Zeina Saavedra (units (u nknown) date) unknown) (unknown) (no (unknown) (unknown) Clinical (units (unkno wn) date) Impression: unknown) (unknown) (no (unknown) (unknown) Consultation #1: (units (unknown) date) unknown) (unknown) (no (unknown) (unknown) Consultations (units ( unknown) date) unknown) (unknown) (no (unknown) (unknown) Coronary artery (units (unknown) date) disease unknown) (unknown) (no (unknown) (unknown) Course (units (unkno wn) date) unknown) (unknown) (no (unknown) (unknown) Course Narrative: (units (unknown) date) unknown) (unknown) (no (unknown) (unknown) Creatinine (units (unk nown) date) (0.66-1.25) mg/dL unknown) (unknown) (no (unknown) (unknown) Creatinine (units (unk nown) date) (0.66-1.25) mg/dL unknown) (unknown) (no (unknown) (unknown) Creatinine 0.88 (units (unknown) date) (0.66-1.25) mg/dL unknown) (unknown) (no (unknown) (unknown) : 1945 (units (unknown) date) Acct:[id number] unknown) (unknown) (no (unknown) (unknown) : 1945 (units (unknown) date) unknown) (unknown) (no (unknown) (unknown) Date of Service: (units (unknown) date) 12/07/21 unknown) (unknown) (no (unknown) (unknown) Departure (units (unkn own) date) unknown) (unknown) (no (unknown) (unknown) Inder Farley (units (u nknown) date) unknown) (unknown) (no (unknown) (unknown) Dictated by: (units (u nknown) date) Maxim Valadez, unknownRui Horton on 12/07/2021 at 21:42 ? ? (unknown) (no (unknown) (unknown) Dictated by: (units (u nknown) date) Maxim Valadez, unknown) Clifford on 12/07/2021 at 21:44 ? ? (unknown) (no (unknown) (unknown) Discharge Plan (units (unknown) date) unknown) (unknown) (no (unknown) (unknown) Discontinued (units (u nknown) date) Medications unknown) (unknown) (no (unknown) (unknown) EKG-12 Lead (units (un known) date) Routine unknown) (unknown) (no (unknown) (unknown) ENT: Nose without (units (unknown) date) bleeding, purulent unknown) drainage. No nasal septal hematoma Throat (unknown) (no (unknown) (unknown) ER Physician: (units ( unknown) date) Ezra Jasmine MD unknown) (unknown) (no (unknown) (unknown) EXTREMITIES: No (units (unknown) date) edema or joint unknown) tenderness. (unknown) (no (unknown) (unknown) EYES: Pupils equal (units (unknown) date) round and reactive. unknown) No hyphema Extraocular motions intact. (unknown) (no (unknown) (unknown) Echocardiogram (units (unknown) date) Ultrasound (Signed) unknown) (unknown) (no (unknown) (unknown) Eos # (Auto) (units (u nknown) date) (0-450) /uL unknown) (unknown) (no (unknown) (unknown) Eos # (Auto) (units (u nknown) date) (0-450) /uL unknown) (unknown) (no (unknown) (unknown) Eos # (Auto) 100 (units (unknown) date) (0-450) /uL unknown) (unknown) (no (unknown) (unknown) Eos % (Auto) (units (u nknown) date) (2-4) % unknown) (unknown) (no (unknown) (unknown) Eos % (Auto) (units (u nknown) date) (2-4) % unknown) (unknown) (no (unknown) (unknown) Eos % (Auto) 2.0 (units (unknown) date) (2-4) % unknown) (unknown) (no (unknown) (unknown) Estimated GFR (units ( unknown) date) (>60) mL/min unknown) (unknown) (no (unknown) (unknown) Estimated GFR (units ( unknown) date) (>60) mL/min unknown) (unknown) (no (unknown) (unknown) Estimated GFR > (units (unknown) date) 60 (>60) mL/min unknown) (unknown) (no (unknown) (unknown) Ethyl Alcohol ( (units (unknown) date) - 10) mg/dL unknown) (unknown) (no (unknown) (unknown) Ethyl Alcohol ( (units (unknown) date) - 10) mg/dL unknown) (unknown) (no (unknown) (unknown) Ethyl Alcohol (units ( unknown) date) 111 H ( - 10) unknown) mg/dL (unknown) (no (unknown) (unknown) Exam (units (unkno wn) date) unknown) (unknown) (no (unknown) (unknown) Exam Narrative: (units (unknown) date) unknown) (unknown) (no (unknown) (unknown) FINDINGS:? (units (unk nown) date) unknown) (unknown) (no (unknown) (unknown) Family History (units (unknown) date) (Reviewed 12/08/21 unknown) @ 01:57 by Jung Dejesus DO) (unknown) (no (unknown) (unknown) Foot X-Ray (units (unk nown) date) (Signed) unknown) (unknown) (no (unknown) (unknown) GASTROINTESTINAL: (units (unknown) date) Abdomen soft, unknown) non-tender, nondistended. (unknown) (no (unknown) (unknown) GASTROINTESTINAL: (units (unknown) date) Denies nausea, unknown) vomiting, abdominal pain, diarrhea, (unknown) (no (unknown) (unknown) GENERAL: Denies (units (unknown) date) chills, fatigue, unknown) malaise, fever, sweats. (unknown) (no (unknown) (unknown) GENERAL: [76 year (units (unknown) date) old patient appears unknown) stated age. Well-developed patient, in (unknown) (no (unknown) (unknown) : Denies (units (unk nown) date) dysuria, frequency, unknown) incontinence, hematuria, urinary retention. (unknown) (no (unknown) (unknown) General (units (unkno wn) date) unknown) (unknown) (no (unknown) (unknown) GenericComposite[P (units (unknown) date) lt Count unknown) (150-400) X10^3/uL ] (unknown) (no (unknown) (unknown) GenericComposite[P (units (unknown) date) lt Count unknown) (150-400) X10^3/uL ] (unknown) (no (unknown) (unknown) GenericComposite[P (units (unknown) date) lt Count 241 unknown) (150-400) X10^3/uL ] (unknown) (no (unknown) (unknown) GenericComposite[R (units (unknown) date) BC (4.5-5.9) unknown) X10^6/uL ] (unknown) (no (unknown) (unknown) GenericComposite[R (units (unknown) date) BC (4.5-5.9) unknown) X10^6/uL ] (unknown) (no (unknown) (unknown) GenericComposite[R (units (unknown) date) BC 4.93 unknown) (4.5-5.9) X10^6/uL ] (unknown) (no (unknown) (unknown) GenericComposite[W (units (unknown) date) BC (4.5-11.0) unknown) X10^3/uL ] (unknown) (no (unknown) (unknown) GenericComposite[W (units (unknown) date) BC (4.5-11.0) unknown) X10^3/uL ] (unknown) (no (unknown) (unknown) GenericComposite[W (units (unknown) date) BC 7.4 unknown) (4.5-11.0) X10^3/uL ] (unknown) (no (unknown) (unknown) Globulin (units (unkno wn) date) (1.7-4.1) g/dL unknown) (unknown) (no (unknown) (unknown) Globulin (units (unkno wn) date) (1.7-4.1) g/dL unknown) (unknown) (no (unknown) (unknown) Globulin 2.9 (units (unknown) date) (1.7-4.1) g/dL unknown) (unknown) (no (unknown) (unknown) Glucose (units (unkno wn) date) (80-110) mg/dL unknown) (unknown) (no (unknown) (unknown) Glucose (units (unkno wn) date) (80-110) mg/dL unknown) (unknown) (no (unknown) (unknown) Glucose 124 H (units (unknown) date) (80-110) mg/dL unknown) (unknown) (no (unknown) (unknown) Glucose POC 118 (units (unknown) date) unknown) (unknown) (no (unknown) (unknown) H/O arthroscopic (units (unknown) date) knee surgery unknown) (11/14/17) (unknown) (no (unknown) (unknown) HEAD: Superficial (units (unknown) date) abrasion on the unknown) bridge of his nose, no other obvious (unknown) (no (unknown) (unknown) HEENT: See HPI (units (unknown) date) unknown) (unknown) (no (unknown) (unknown) HPI - Fall (units (unk nown) date) unknown) (unknown) (no (unknown) (unknown) HPI Narrative: (units (unknown) date) unknown) (unknown) (no (unknown) (unknown) Hand X-Ray (units (unk nown) date) (Signed) unknown) (unknown) (no (unknown) (unknown) Jean Oneill (units (unknown) date) unknown) (unknown) (no (unknown) (unknown) Hct (41-53) % (units (unknown) date) unknown) (unknown) (no (unknown) (unknown) Hct (41-53) % (units (unknown) date) unknown) (unknown) (no (unknown) (unknown) Hct 46.0 (units (unkn own) date) (41-53) % unknown) (unknown) (no (unknown) (unknown) Head CT (Signed) (units (unknown) date) unknown) (unknown) (no (unknown) (unknown) Head/Neck CTA (units ( unknown) date) (Signed) unknown) (unknown) (no (unknown) (unknown) Hgb (units (unkno wn) date) (13.5-17.5) g/dL unknown) (unknown) (no (unknown) (unknown) Hgb (13.5-17.5) (units (unknown) date) g/dL unknown) (unknown) (no (unknown) (unknown) Hgb 15.6 (units (unkn own) date) (13.5-17.5) g/dL unknown) (unknown) (no (unknown) (unknown) History of Present (units (unknown) date) Illness unknown) (unknown) (no (unknown) (unknown) History of aortic (units (unknown) date) dissection unknown) () (unknown) (no (unknown) (unknown) History of (units (unk nown) date) arthroplasty of unknown) right knee (unknown) (no (unknown) (unknown) 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 (unknown) (no (unknown) (unknown) History of cardiac (units (unknown) date) cath () unknown) (unknown) (no (unknown) (unknown) History of (units (unk nown) date) esophageal surgery unknown) (unknown) (no (unknown) (unknown) History of (units (unk nown) date) incision and unknown) drainage () (unknown) (no (unknown) (unknown) History of prior (units (unknown) date) ablation treatment unknown) () (unknown) (no (unknown) (unknown) History of surgery (units (unknown) date) unknown) (unknown) (no (unknown) (unknown) Vidal,Ronni (units (unk nown) date) unknown) (unknown) (no (unknown) (unknown) Hx of (units (unkno wn) date) cholecystectomy unknown) (unknown) (no (unknown) (unknown) Hx of hernia (units (u nknown) date) repair unknown) (unknown) (no (unknown) (unknown) Hx of sinus (units (un known) date) surgery unknown) (unknown) (no (unknown) (unknown) Hydralazine HCl (units (unknown) date) (Hydralazine 20 unknown) Mg/Ml Vial) 10 mg IV NOW ONE (unknown) (no (unknown) (unknown) Hydromorphone HCl (units (unknown) date) (Hydromorphone 0.5 unknown) Mg Inj) 0.5 mg IV NOW ONE (unknown) (no (unknown) (unknown) Hypertension (units (u nknown) date) unknown) (unknown) (no (unknown) (unknown) IMPRESSION:? (units (u nknown) date) unknown) (unknown) (no (unknown) (unknown) INDICATIONS:? (units ( unknown) date) trauma unknown) (unknown) (no (unknown) (unknown) INHIBITOR] (units (unk nown) date) unknown) (unknown) (no (unknown) (unknown) Image quality:? (units (unknown) date) Excellent.? unknown) (unknown) (no (unknown) (unknown) Image quality:? (units (unknown) date) There is motion unknown) artifact limiting evaluation.? (unknown) (no (unknown) (unknown) Imaging Data (units (u nknown) date) unknown) (unknown) (no (unknown) (unknown) Inhibitor (units (unkn own) date) MUSCLES unknown) (unknown) (no (unknown) (unknown) Initial Vital (units ( unknown) date) Signs unknown) (unknown) (no (unknown) (unknown) Initial Vital (units ( unknown) date) Signs: unknown) (unknown) (no (unknown) (unknown) Ischemic (units (unkno wn) date) cardiomyopathy unknown) (unknown) (no (unknown) (unknown) Theodore,Tl (units (unknown) date) unknown) (unknown) (no (unknown) (unknown) Ashley,Bharath (units ( unknown) date) unknown) (unknown) (no (unknown) (unknown) Knee X-Ray (units (unk nown) date) (Signed) unknown) (unknown) (no (unknown) (unknown) Lab Data (units (unkno wn) date) unknown) (unknown) (no (unknown) (unknown) Labs: (units (unkno wn) date) unknown) (unknown) (no (unknown) (unknown) Lactate (units (unkno wn) date) (0.7-2.1) mmol/L unknown) (unknown) (no (unknown) (unknown) Lactate 2.3 H (units (unknown) date) (0.7-2.1) mmol/L unknown) (unknown) (no (unknown) (unknown) Lactate 1.5 (units ( unknown) date) (0.7-2.1) mmol/L unknown) (unknown) (no (unknown) (unknown) Lisinopril (units (unk nown) date) (Lisinopril 20 Mg unknown) Tablet) 20 mg PO NOW ONE (unknown) (no (unknown) (unknown) Satish Jarrett (units (unkno wn) date) unknown) (unknown) (no (unknown) (unknown) Loc: ED (units (unkno wn) date) unknown) (unknown) (no (unknown) (unknown) Lumbar Spine MRI (units (unknown) date) (Signed) unknown) (unknown) (no (unknown) (unknown) Lymph # (Auto) (units (unknown) date) ([id number]) /uL unknown) (unknown) (no (unknown) (unknown) Lymph # (Auto) (units (unknown) date) ([id number]) /uL unknown) (unknown) (no (unknown) (unknown) Lymph # (Auto) (units (unknown) date) 1700 ([id number]) unknown) /uL (unknown) (no (unknown) (unknown) Lymph % (Auto) (units (unknown) date) (25-40) % unknown) (unknown) (no (unknown) (unknown) Lymph % (Auto) (units (unknown) date) (25-40) % unknown) (unknown) (no (unknown) (unknown) Lymph % (Auto) (units (unknown) date) 23.0 L (25-40) unknown) % (unknown) (no (unknown) (unknown) MCH (26-34) (units (unknown) date) PG unknown) (unknown) (no (unknown) (unknown) MCH (26-34) PG (units (unknown) date) unknown) (unknown) (no (unknown) (unknown) MCH 31.7 (units (unkn own) date) (26-34) PG unknown) (unknown) (no (unknown) (unknown) MCHC (30-36) (units (unknown) date) % unknown) (unknown) (no (unknown) (unknown) MCHC (30-36) % (units (unknown) date) unknown) (unknown) (no (unknown) (unknown) MCHC 34.0 (units (unk nown) date) (30-36) % unknown) (unknown) (no (unknown) (unknown) MCV (80-100) (units (unknown) date) fL unknown) (unknown) (no (unknown) (unknown) MCV (80-100) (units (unknown) date) fL unknown) (unknown) (no (unknown) (unknown) MCV 93.3 (units (unkn own) date) (80-100) fL unknown) (unknown) (no (unknown) (unknown) MDM - Fall (units (unk nown) date) unknown) (unknown) (no (unknown) (unknown) MR#: [id number] (units (unknown) date) unknown) (unknown) (no (unknown) (unknown) MUSCULOSKELETAL: (units (unknown) date) See HPI unknown) (unknown) (no (unknown) (unknown) Medical History (units (unknown) date) (Reviewed 12/08/21 unknown) @ 01:57 by Jung Dejesus DO) (unknown) (no (unknown) (unknown) Cheryl Husain (units (unknown) date) unknown) (unknown) (no (unknown) (unknown) Metoprolol (units (unk nown) date) Tartrate unknown) (Metoprolol Ir 25 Mg Tablet) 100 mg PO NOW ONE (unknown) (no (unknown) (unknown) Mode of arrival: (units (unknown) date) EMS unknown) (unknown) (no (unknown) (unknown) [place] # (Auto) (units ( unknown) date) (0-900) /uL unknown) (unknown) (no (unknown) (unknown) [place] # (Auto) (units ( unknown) date) (0-900) /uL unknown) (unknown) (no (unknown) (unknown) [place] # (Auto) 700 (units (unknown) date) (0-900) /uL unknown) (unknown) (no (unknown) (unknown) [place] % (Auto) (units ( unknown) date) (3-14) % unknown) (unknown) (no (unknown) (unknown) [place] % (Auto) (units ( unknown) date) (3-14) % unknown) (unknown) (no (unknown) (unknown) [place] % (Auto) 9.5 (units (unknown) date) (3-14) % unknown) (unknown) (no (unknown) (unknown) Mother (units (unknown) date) Stroke unknown) (unknown) (no (unknown) (unknown) NECK: Trachea (units ( unknown) date) midline. Non tender unknown) (unknown) (no (unknown) (unknown) NEURO: Cranial (units (unknown) date) nerves 2-12 grossly unknown) intact (unknown) (no (unknown) (unknown) NEUROLOGIC: Denies (units (unknown) date) weakness, headache, unknown) numbness, change in speech, confusion, (unknown) (no (unknown) (unknown) NOW ONE (units (unkno wn) date) unknown) (unknown) (no (unknown) (unknown) Narcotic (units (unkno wn) date) dependence unknown) (unknown) (no (unknown) (unknown) Narrative (units (unkn own) date) unknown) (unknown) (no (unknown) (unknown) Narrative: (units (unk nown) date) unknown) (unknown) (no (unknown) (unknown) Neck pain, chronic (units (unknown) date) unknown) (unknown) (no (unknown) (unknown) Neut # (Auto) (units ( unknown) date) (9122-4844) /uL unknown) (unknown) (no (unknown) (unknown) Neut # (Auto) (units ( unknown) date) (8241-1247) /uL unknown) (unknown) (no (unknown) (unknown) Neut # (Auto) (units ( unknown) date) 4800 (0323-5445) unknown) /uL (unknown) (no (unknown) (unknown) Neut % (Auto) (units ( unknown) date) (50-75) % unknown) (unknown) (no (unknown) (unknown) Neut % (Auto) (units ( unknown) date) (50-75) % unknown) (unknown) (no (unknown) (unknown) Neut % (Auto) (units ( unknown) date) 64.7 (50-75) % unknown) (unknown) (no (unknown) (unknown) No scleral (units (unk nown) date) icterus. No unknown) injection or drainage. (unknown) (no (unknown) (unknown) Noncontrast 3 mm (units (unknown) date) thick sections unknown) acquired from the skull base to the T4 level.? (unknown) (no (unknown) (unknown) Noncontrast 4.5 mm (units (unknown) date) thick angled axial unknown) sections acquired from the foramen magnum (unknown) (no (unknown) (unknown) Ondansetron HCl (units (unknown) date) (Ondansetron 4 Mg/2 unknown) Ml Inj) 4 mg IV NOW ONE (unknown) (no (unknown) (unknown) Ordered: (units (unkno wn) date) unknown) (unknown) (no (unknown) (unknown) Ordering Provider: (units (unknown) date) Jung Dejesus D.O. unknown) (unknown) (no (unknown) (unknown) Orders (units (unkno wn) date) unknown) (unknown) (no (unknown) (unknown) PROCEDURE:? CT (units (unknown) date) CERVICAL SPINE WO unknown) CON (unknown) (no (unknown) (unknown) PROCEDURE:? CT (units (unknown) date) HEAD/BRAIN WO CON unknown) (unknown) (no (unknown) (unknown) PSYCHIATRIC: No (units (unknown) date) concerning unknown) psychosocial issues. (unknown) (no (unknown) (unknown) Pantoprazole (units (u nknown) date) Sodium unknown) (Pantoprazole 40 Mg Vial) 40 mg IV NOW ONE (unknown) (no (unknown) (unknown) Patient (units (unkno wn) date) Disposition: unknown) Admitted As Inpatient (unknown) (no (unknown) (unknown) Patient History (units (unknown) date) unknown) (unknown) (no (unknown) (unknown) Patient getting (units (unknown) date) shaky, sweaty, unknown) tachycardic, HTN, sweaty, and developing N/V/D. (unknown) (no (unknown) (unknown) Patient observed (units (unknown) date) for some time unknown) before labs added. He has continued to have a (unknown) (no (unknown) (unknown) Patient: (units (unkno wn) date) Dominic Viveros unknown) MR#: M (unknown) (no (unknown) (unknown) Patient: (units (unkno wn) date) Dominic Viveros unknown) (unknown) (no (unknown) (unknown) Maxim Valadez (units (un known) date) unknown) (unknown) (no (unknown) (unknown) Phenobarbital (units ( unknown) date) (Phenobarbital 65 unknown) Mg/Ml Vial) 260 mg IV NOW ONE (unknown) (no (unknown) (unknown) Potassium (units (unkn own) date) (3.4-5.1) mmol/L unknown) (unknown) (no (unknown) (unknown) Potassium (units (unkn own) date) (3.4-5.1) mmol/L unknown) (unknown) (no (unknown) (unknown) Potassium 4.5 (units (unknown) date) (3.4-5.1) mmol/L unknown) (unknown) (no (unknown) (unknown) Procedure: CT (units ( unknown) date) cervical spine wo unknown) con (unknown) (no (unknown) (unknown) Procedure: CT (units ( unknown) date) head/brain wo con unknown) (unknown) (no (unknown) (unknown) Prolactin (units (unkn own) date) (3.7-17.9) ng/mL unknown) (unknown) (no (unknown) (unknown) Prolactin (units (unkn own) date) (3.7-17.9) ng/mL unknown) (unknown) (no (unknown) (unknown) Prolactin 18.9 H (units (unknown) date) (3.7-17.9) ng/mL unknown) (unknown) (no (unknown) (unknown) Pulse Oximetry 92 (units (unknown) date) 12/07/21 20:23 unknown) (unknown) (no (unknown) (unknown) Pulse Oximetry 96 (units (unknown) date) 93 unknown) (unknown) (no (unknown) (unknown) Pulse Oximetry 92 (units (unknown) date) 96 unknown) (unknown) (no (unknown) (unknown) Pulse Rate 67 66 (units (unknown) date) unknown) (unknown) (no (unknown) (unknown) Pulse Rate 88 (units (unknown) date) 12/07/21 20:23 unknown) (unknown) (no (unknown) (unknown) Pulse Rate 64 68 (units (unknown) date) 69 unknown) (unknown) (no (unknown) (unknown) RDW (units (unkno wn) date) (11.6-14.8) % unknown) (unknown) (no (unknown) (unknown) RDW (11.6-14.8) (units (unknown) date) % unknown) (unknown) (no (unknown) (unknown) RDW 13.7 (units (unkn own) date) (11.6-14.8) % unknown) (unknown) (no (unknown) (unknown) RESPIRATORY: Clear (units (unknown) date) to auscultation. unknown) Breath sounds equal bilaterally. No wheezes, (unknown) (no (unknown) (unknown) RESPIRATORY: (units (u nknown) date) Denies dyspnea, unknown) cough, wheezing, hemoptysis, sputum. (unknown) (no (unknown) (unknown) Dominic Viveros (units (unknown) date) D??76??M?? unknown) 5 (unknown) (no (unknown) (unknown) Reevaluation #1: (units (unknown) date) unknown) (unknown) (no (unknown) (unknown) Reevaluation #2: (units (unknown) date) unknown) (unknown) (no (unknown) (unknown) Reevaluation(s) (units (unknown) date) unknown) (unknown) (no (unknown) (unknown) Related Data (units (u nknown) date) unknown) (unknown) (no (unknown) (unknown) Respiratory Rate (units (unknown) date) 17 19 unknown) (unknown) (no (unknown) (unknown) Respiratory Rate (units (unknown) date) 22 12/07/21 20:23 unknown) (unknown) (no (unknown) (unknown) Respiratory Rate (units (unknown) date) 18 18 20 unknown) (unknown) (no (unknown) (unknown) Result diagrams: (units (unknown) date) unknown) (unknown) (no (unknown) (unknown) Review of Systems (units (unknown) date) unknown) (unknown) (no (unknown) (unknown) Emeka Robertson (units (unknown) date) unknown) (unknown) (no (unknown) (unknown) Steven Calderonson (units (u nknown) date) unknown) (unknown) (no (unknown) (unknown) S/P CABG x 3 (units (u nknown) date) (-08/2007) unknown) (unknown) (no (unknown) (unknown) S/P cervical (units (u nknown) date) spinal fusion unknown) (unknown) (no (unknown) (unknown) S/P lumbar fusion (units (unknown) date) unknown) (unknown) (no (unknown) (unknown) SARS-CoV-2 (PCR) (units (unknown) date) (Negative) unknown) (unknown) (no (unknown) (unknown) SARS-CoV-2 (PCR) (units (unknown) date) (Negative) unknown) (unknown) (no (unknown) (unknown) SARS-CoV-2 (PCR) (units (unknown) date) Negative unknown) (Negative) (unknown) (no (unknown) (unknown) SKIN: Denies rash, (units (unknown) date) skin lesions, or unknown) other (unknown) (no (unknown) (unknown) SKIN: No rash or (units (unknown) date) erythema of visible unknown) areas (unknown) (no (unknown) (unknown) Sagittal (units (unkno wn) date) unknown) (unknown) (no (unknown) (unknown) Salicylates (units (un known) date) (<20) mg/dL unknown) (unknown) (no (unknown) (unknown) Salicylates (units (un known) date) (<20) mg/dL unknown) (unknown) (no (unknown) (unknown) Salicylates < (units (unknown) date) 1.0 (<20) mg/dL unknown) (unknown) (no (unknown) (unknown) Signed By: (units (unk nown) date) unknown) (unknown) (no (unknown) (unknown) Sinuses:? (units (unkn own) date) Visualized sinuses unknown) redemonstrate wall thickening and mucoperiosteal (unknown) (no (unknown) (unknown) Skull and face:? (units (unknown) date) Calvarium and unknown) visualized facial bones appear intact, without (unknown) (no (unknown) (unknown) Smoking Status: (units (unknown) date) Former smoker unknown) (unknown) (no (unknown) (unknown) Smoking Status: (units (unknown) date) Former smoker unknown) (unknown) (no (unknown) (unknown) Social History (units (unknown) date) (Reviewed 12/08/21 unknown) @ 01:57 by Jung Dejesus DO) (unknown) (no (unknown) (unknown) Sodium (units (unkno wn) date) (137-145) mmol/L unknown) (unknown) (no (unknown) (unknown) Sodium (units (unkno wn) date) (137-145) mmol/L unknown) (unknown) (no (unknown) (unknown) Sodium 140 (units (u nknown) date) (137-145) mmol/L unknown) (unknown) (no (unknown) (unknown) Sodium Chloride (units (unknown) date) (Normal Saline unknown) 0.9%) 1,000 mls @ 150 mls/hr IV CONT BLOSSOM (unknown) (no (unknown) (unknown) Soft tissues:? (units (unknown) date) Prevertebral soft unknown) tissues are normal in thickness.? No (unknown) (no (unknown) (unknown) Source: patient, (units (unknown) date) family and EMS unknown) (unknown) (no (unknown) (unknown) Spoke with (units (unk nown) date) hospitalist, unknown) Willie, he will accept patient for admit (unknown) (no (unknown) (unknown) Stated Complaint: (units (unknown) date) Back Pain unknown) (unknown) (no (unknown) (unknown) [id number] (units (unknown) date) Reductase AdvReac unknown) Mild WEAK Verified 11/28/21 15:33 (unknown) (no (unknown) (unknown) Strong concern (units (unknown) date) that he is unknown) developing withdrawals though he denies frequent (unknown) (no (unknown) (unknown) Substance Use (units ( unknown) date) Type: does not use unknown) (unknown) (no (unknown) (unknown) Sulfa (Sulfonamide (units (unknown) date) Allergy Mild RASH unknown) Verified 11/28/21 15:33 (unknown) (no (unknown) (unknown) Surgical History (units (unknown) date) (Reviewed 12/08/21 unknown) @ 01:57 by Jung Dejesus DO) (unknown) (no (unknown) (unknown) Andre Spear (units ( unknown) date) unknown) (unknown) (no (unknown) (unknown) TECHNIQUE:? (units (un known) date) unknown) (unknown) (no (unknown) (unknown) TSH (units (unkno wn) date) (0.47-4.68) uIU/mL unknown) (unknown) (no (unknown) (unknown) TSH (0.47-4.68) (units (unknown) date) uIU/mL unknown) (unknown) (no (unknown) (unknown) TSH 2.07 (units (unkn own) date) (0.47-4.68) uIU/mL unknown) (unknown) (no (unknown) (unknown) Telemetry Strips (units (unknown) date) unknown) (unknown) (no (unknown) (unknown) Temperature (units (un known) date) unknown) (unknown) (no (unknown) (unknown) Temperature 97.4 (units (unknown) date) F L 12/07/21 20:23 unknown) (unknown) (no (unknown) (unknown) Temperature 97.8 (units (unknown) date) F unknown) (unknown) (no (unknown) (unknown) There is a small (units (unknown) date) right choroidal unknown) fissure cyst redemonstrated.? (unknown) (no (unknown) (unknown) There is mild (units ( unknown) date) cerebral volume unknown) loss, with resultant ventricular and sulcal (unknown) (no (unknown) (unknown) Tibia/Fibula X-Ray (units (unknown) date) (Signed) unknown) (unknown) (no (unknown) (unknown) Time Seen by (units (u nknown) date) Provider: 12/07/21 unknown) 20:22 (unknown) (no (unknown) (unknown) Time: 06:09 (units (un known) date) unknown) (unknown) (no (unknown) (unknown) Time: 08:06 (units (un known) date) unknown) (unknown) (no (unknown) (unknown) Total Bilirubin (units (unknown) date) (0.2-1.3) mg/dL unknown) (unknown) (no (unknown) (unknown) Total Bilirubin (units (unknown) date) (0.2-1.3) mg/dL unknown) (unknown) (no (unknown) (unknown) Total Bilirubin (units (unknown) date) 0.9 (0.2-1.3) unknown) mg/dL (unknown) (no (unknown) (unknown) Total Protein (units ( unknown) date) (6.3-8.2) g/dL unknown) (unknown) (no (unknown) (unknown) Total Protein (units ( unknown) date) (6.3-8.2) g/dL unknown) (unknown) (no (unknown) (unknown) Total Protein (units ( unknown) date) 7.0 (6.3-8.2) unknown) g/dL (unknown) (no (unknown) (unknown) U Benzodiazepines (units (unknown) date) Scrn (Negative) unknown) (unknown) (no (unknown) (unknown) U Benzodiazepines (units (unknown) date) Scrn Positive H unknown) (Negative) (unknown) (no (unknown) (unknown) U Marijuana (THC) (units (unknown) date) Screen unknown) (Negative) (unknown) (no (unknown) (unknown) U Marijuana (THC) (units (unknown) date) Screen Negative unknown) (Negative) (unknown) (no (unknown) (unknown) U Methamphetamines (units (unknown) date) Scrn (Negative) unknown) (unknown) (no (unknown) (unknown) U Methamphetamines (units (unknown) date) Scrn Negative unknown) (Negative) (unknown) (no (unknown) (unknown) U Opiates 300ng/mL (units (unknown) date) cut (Negative) unknown) (unknown) (no (unknown) (unknown) U Opiates 300ng/mL (units (unknown) date) cut Positive H unknown) (Negative) (unknown) (no (unknown) (unknown) U Tricyclic (units (un known) date) Antidepress unknown) (Negative) (unknown) (no (unknown) (unknown) U Tricyclic (units (un known) date) Antidepress unknown) Negative (Negative) (unknown) (no (unknown) (unknown) Ur Amphetamines (units (unknown) date) Screen unknown) (Negative) (unknown) (no (unknown) (unknown) Ur Amphetamines (units (unknown) date) Screen Negative unknown) (Negative) (unknown) (no (unknown) (unknown) Ur Barbiturates (units (unknown) date) Screen unknown) (Negative) (unknown) (no (unknown) (unknown) Ur Barbiturates (units (unknown) date) Screen Negative unknown) (Negative) (unknown) (no (unknown) (unknown) Ur Culture (units (unk nown) date) Indicated? unknown) (unknown) (no (unknown) (unknown) Ur Culture (units (unk nown) date) Indicated? unknown) (unknown) (no (unknown) (unknown) Ur Culture (units (unk nown) date) Indicated? Cult unknown) not indicated (unknown) (no (unknown) (unknown) Ur Leukocyte (units (u nknown) date) Esterase unknown) (NEGATIVE) (unknown) (no (unknown) (unknown) Ur Leukocyte (units (u nknown) date) Esterase unknown) (NEGATIVE) (unknown) (no (unknown) (unknown) Ur Leukocyte (units (u nknown) date) Esterase unknown) Negative (NEGATIVE) (unknown) (no (unknown) (unknown) Ur MDMA Scrn (units (u nknown) date) (Ecstasy) unknown) (Negative) (unknown) (no (unknown) (unknown) Ur MDMA Scrn (units (u nknown) date) (Ecstasy) Negative unknown) (Negative) (unknown) (no (unknown) (unknown) Ur Oxycodone (units (u nknown) date) Screen unknown) (Negative) (unknown) (no (unknown) (unknown) Ur Oxycodone (units (u nknown) date) Screen Negative unknown) (Negative) (unknown) (no (unknown) (unknown) Ur Phencyclidine (units (unknown) date) Scrn (Negative) unknown) (unknown) (no (unknown) (unknown) Ur Phencyclidine (units (unknown) date) Scrn Negative unknown) (Negative) (unknown) (no (unknown) (unknown) Ur Specific (units (un known) date) [place] unknown) (1.000-1.035) (unknown) (no (unknown) (unknown) Ur Specific (units (un known) date) [place] unknown) (1.000-1.035) (unknown) (no (unknown) (unknown) Ur Specific (units (un known) date) [place] 1.020 unknown) (1.000-1.035) (unknown) (no (unknown) (unknown) Ur Squamous Epith (units (unknown) date) Cells (0-5/HPF) unknown) (unknown) (no (unknown) (unknown) Ur Squamous Epith (units (unknown) date) Cells (0-5/HPF) unknown) (unknown) (no (unknown) (unknown) Ur Squamous Epith (units (unknown) date) Cells 0-1 /hpf unknown) (0-5/HPF) (unknown) (no (unknown) (unknown) Urinalysis and (units (unknown) date) Microscopic Stat unknown) (unknown) (no (unknown) (unknown) Urine Appearance (units (unknown) date) unknown) (unknown) (no (unknown) (unknown) Urine Appearance (units (unknown) date) unknown) (unknown) (no (unknown) (unknown) Urine Appearance (units (unknown) date) Clear unknown) (unknown) (no (unknown) (unknown) Urine Bacteria (units (unknown) date) (None) unknown) (unknown) (no (unknown) (unknown) Urine Bacteria (units (unknown) date) (None) unknown) (unknown) (no (unknown) (unknown) Urine Bacteria (units (unknown) date) None seen (None) unknown) (unknown) (no (unknown) (unknown) Urine Bilirubin (units (unknown) date) (NEGATIVE) unknown) (unknown) (no (unknown) (unknown) Urine Bilirubin (units (unknown) date) (NEGATIVE) unknown) (unknown) (no (unknown) (unknown) Urine Bilirubin (units (unknown) date) Negative unknown) (NEGATIVE) (unknown) (no (unknown) (unknown) Urine Cocaine (units ( unknown) date) Screen unknown) (Negative) (unknown) (no (unknown) (unknown) Urine Cocaine (units ( unknown) date) Screen Negative unknown) (Negative) (unknown) (no (unknown) (unknown) Urine Color (units (un known) date) unknown) (unknown) (no (unknown) (unknown) Urine Color (units (un known) date) unknown) (unknown) (no (unknown) (unknown) Urine Color (units (un known) date) Yellow unknown) (unknown) (no (unknown) (unknown) Urine Drug Screen, (units (unknown) date) Rapid Stat unknown) (unknown) (no (unknown) (unknown) Urine Glucose (UA) (units (unknown) date) (Negative) unknown) g/dL (unknown) (no (unknown) (unknown) Urine Glucose (UA) (units (unknown) date) (Negative) g/dL unknown) (unknown) (no (unknown) (unknown) Urine Glucose (UA) (units (unknown) date) Negative unknown) (Negative) g/dL (unknown) (no (unknown) (unknown) Urine Ketones (units ( unknown) date) (NEGATIVE) unknown) (unknown) (no (unknown) (unknown) Urine Ketones (units ( unknown) date) (NEGATIVE) unknown) (unknown) (no (unknown) (unknown) Urine Ketones (units ( unknown) date) Trace H (NEGATIVE) unknown) (unknown) (no (unknown) (unknown) Urine Methadone (units (unknown) date) Screen unknown) (Negative) (unknown) (no (unknown) (unknown) Urine Methadone (units (unknown) date) Screen Negative unknown) (Negative) (unknown) (no (unknown) (unknown) Urine Nitrate (units ( unknown) date) (Negative) unknown) (unknown) (no (unknown) (unknown) Urine Nitrate (units ( unknown) date) (Negative) unknown) (unknown) (no (unknown) (unknown) Urine Nitrate (units ( unknown) date) Negative unknown) (Negative) (unknown) (no (unknown) (unknown) Urine Occult Blood (units (unknown) date) (Negative) unknown) (unknown) (no (unknown) (unknown) Urine Occult Blood (units (unknown) date) (Negative) unknown) (unknown) (no (unknown) (unknown) Urine Occult Blood (units (unknown) date) Negative unknown) (Negative) (unknown) (no (unknown) (unknown) Urine Protein (units ( unknown) date) (Negative) unknown) (unknown) (no (unknown) (unknown) Urine Protein (units ( unknown) date) (Negative) unknown) (unknown) (no (unknown) (unknown) Urine Protein (units ( unknown) date) Negative unknown) (Negative) (unknown) (no (unknown) (unknown) Urine RBC (units (unkn own) date) (0-5/HPF) unknown) (unknown) (no (unknown) (unknown) Urine RBC (units (unkn own) date) (0-5/HPF) unknown) (unknown) (no (unknown) (unknown) Urine RBC None (units (unknown) date) seen (0-5/HPF) unknown) (unknown) (no (unknown) (unknown) Urine Urobilinogen (units (unknown) date) (0.2) E.U./dL unknown) (unknown) (no (unknown) (unknown) Urine Urobilinogen (units (unknown) date) (0.2) E.U./dL unknown) (unknown) (no (unknown) (unknown) Urine Urobilinogen (units (unknown) date) 0.2 (0.2) unknown) E.U./dL (unknown) (no (unknown) (unknown) Urine WBC (units (unkn own) date) (0-5/HPF) unknown) (unknown) (no (unknown) (unknown) Urine WBC (units (unkn own) date) (0-5/HPF) unknown) (unknown) (no (unknown) (unknown) Urine WBC None (units (unknown) date) seen (0-5/HPF) unknown) (unknown) (no (unknown) (unknown) Urine pH (units (unkno wn) date) (4.5-8.0) unknown) (unknown) (no (unknown) (unknown) Urine pH (units (unkno wn) date) (4.5-8.0) unknown) (unknown) (no (unknown) (unknown) Urine pH 5.0 (units (unknown) date) (4.5-8.0) unknown) (unknown) (no (unknown) (unknown) Vascular (units (unkno wn) date) Ultrasound (Signed) unknown) (unknown) (no (unknown) (unknown) Ventricular (units (un known) date) bigeminy unknown) (unknown) (no (unknown) (unknown) Vital Signs (units (un known) date) unknown) (unknown) (no (unknown) (unknown) Vital signs: (units (u nknown) date) unknown) (unknown) (no (unknown) (unknown) Charles,Lexx (units (u nknown) date) unknown) (unknown) (no (unknown) (unknown) [Embedded Image (units (unknown) date) Not Available] unknown) (unknown) (no (unknown) (unknown) [[id number] (units (unknown) date) REDUCTASE unknown) (unknown) (no (unknown) (unknown) [SULFA (units (unkno wn) date) (SULFONAMIDE unknown) (unknown) (no (unknown) (unknown) acetaminophen 300 (units (unknown) date) mg-codeine 30 mg 1 unknown) tab PO Q6HR PRN 10/08/21 10/08/21 (unknown) (no (unknown) (unknown) acetaminophen 325 (units (unknown) date) mg tablet 650 mg PO unknown) Q6H PRN #60 tab 11/06/20 (unknown) (no (unknown) (unknown) agree for admit. (units (unknown) date) At this time unknown) nighttime hospitalist is aware and signing out to (unknown) (no (unknown) (unknown) albuterol sulfate (units (unknown) date) 1.25 mg/3 mL 2.5 mg unknown) (6 mL) INHALATION QID #90 ml 11/28/21 (unknown) (no (unknown) (unknown) alcohol intake (units (unknown) date) frequency: unknown) holidays/special occasions only (unknown) (no (unknown) (unknown) alcohol intake: (units (unknown) date) current unknown) (unknown) (no (unknown) (unknown) and coronal (units (un known) date) reformats were then unknown) constructed.? For radiation dose reduction, the (unknown) (no (unknown) (unknown) and shape.? (units (un known) date) unknown) (unknown) (no (unknown) (unknown) appears (units (unkno wn) date) preserved.? There unknown) is intracranial internal carotid artery (unknown) (no (unknown) (unknown) approximately 0.2 (units (unknown) date) cm. unknown) (unknown) (no (unknown) (unknown) approximately 0.4 (units (unknown) date) cm and minimal unknown) anterolisthesis at C3-C4 measuring (unknown) (no (unknown) (unknown) arthropathy (units (un known) date) throughout the unknown) cervical spine.? Visualized superior ribs are (unknown) (no (unknown) (unknown) atherosclerosis.? (units (unknown) date) unknown) (unknown) (no (unknown) (unknown) benzonatate 100 mg (units (unknown) date) capsule 100 mg PO unknown) TID PRN #14 cap 03/05/21 (unknown) (no (unknown) (unknown) buprenorphine (units ( unknown) date) [BUPRENORPHINE] unknown) AdvReac Mild NAUSEA, Verified 11/28/21 15:33 (unknown) (no (unknown) (unknown) buprenorphine, (units (unknown) date) hyoscyamine, unknown) [id number] Reductase Inhibitor, diazepam (unknown) (no (unknown) (unknown) cefdinir 300 mg (units (unknown) date) capsule 300 mg PO unknown) BID #20 cap 10/09/21 (unknown) (no (unknown) (unknown) celecoxib (units (unkn own) date) [CELECOXIB] Allergy unknown) Mild SWELLING Verified 11/28/21 15:33 (unknown) (no (unknown) (unknown) cetirizine 10 mg (units (unknown) date) capsule (Zyrtec) 10 unknown) mg PO DAILY 05/22/19 10/08/21 (unknown) (no (unknown) (unknown) chronic back pain, (units (unknown) date) ataxia, AFib, COPD unknown) presents for evaluation of a witnessed (unknown) (no (unknown) (unknown) chronic sinusitis. (units (unknown) date) unknown) (unknown) (no (unknown) (unknown) constipation, (units ( unknown) date) melena. unknown) (unknown) (no (unknown) (unknown) consumed a large (units (unknown) date) amount of alcohol unknown) tonight in addition to many other medications (unknown) (no (unknown) (unknown) contusion, (units (unk nown) date) laceration, unknown) hematoma or evidence of depressed skull fracture (unknown) (no (unknown) (unknown) degeneration also (units (unknown) date) demonstrated at unknown) C2-C3 and C3-C4.? There is multilevel moderate (unknown) (no (unknown) (unknown) degenerative disc (units (unknown) date) disease within the unknown) visualized upper thoracic spine.? Mild disc (unknown) (no (unknown) (unknown) diazepam [From (units (unknown) date) Valium] AdvReac unknown) Confusion Verified 11/28/21 15:33 (unknown) (no (unknown) (unknown) diclofenac sodium (units (unknown) date) 1 % topical gel 2 g unknown) TOPICAL QID #100 g 11/19/21 (unknown) (no (unknown) (unknown) difficult time (units ( unknown) date) ambulating and is unknown) unsafe to discharge at this time. His has (unknown) (no (unknown) (unknown) drinking. (units (unkn own) date) Phenobarb ordered unknown) and moved to room with monitor (unknown) (no (unknown) (unknown) ferrous sulfate (units (unknown) date) 325 mg (65 mg 325 unknown) mg PO DAILY 10/19/19 10/08/21 (unknown) (no (unknown) (unknown) fluticasone (units (un known) date) propionate 50 1 unknown) spray INTRANASAL DAILY PRN #0 11/02/17 10/08/21 (unknown) (no (unknown) (unknown) following (units (unkn own) date) unknown) (unknown) (no (unknown) (unknown) furosemide 40 mg (units (unknown) date) tablet (Lasix) 40 unknown) mg PO DAILY 10/08/21 10/08/21 (unknown) (no (unknown) (unknown) glipizide 2.5 mg (units (unknown) date) tablet, extended unknown) 2.5 mg PO DAILY 10/08/21 10/08/21 (unknown) (no (unknown) (unknown) ground level fall. (units (unknown) date) He stumbled and unknown) fell forward, striking his nose. There was (unknown) (no (unknown) (unknown) hematomas.? No (units (unknown) date) apical unknown) pneumothoraces.? (unknown) (no (unknown) (unknown) household members: (units (unknown) date) spouse unknown) (unknown) (no (unknown) (unknown) hyoscyamine (units (un known) date) [HYOSCYAMINE] unknown) AdvReac Mild LEG Verified 11/28/21 15:33 (unknown) (no (unknown) (unknown) intact.? (units (unkno wn) date) unknown) (unknown) (no (unknown) (unknown) iron) (units (unkno wn) date) tablet,delayed unknown) release (unknown) (no (unknown) (unknown) latex [LATEX] (units ( unknown) date) Allergy Mild RASH unknown) Verified 11/28/21 15:33 (unknown) (no (unknown) (unknown) lesions.? (units (unkn own) date) unknown) (unknown) (no (unknown) (unknown) levalbuterol HCl (units (unknown) date) 1.25 mg/3 mL 3 ml unknown) INHALATION Q6H PRN 10/16/18 10/08/21 (unknown) (no (unknown) (unknown) levalbuterol (units (u nknown) date) tartrate 45 1 puff unknown) INHALATION Q4-6H PRN #15 06/22/18 (unknown) (no (unknown) (unknown) mastoid air cells (units (unknown) date) are clear. unknown) (unknown) (no (unknown) (unknown) mcg/actuation (units ( unknown) date) aerosol inhaler unknown) gram (unknown) (no (unknown) (unknown) mcg/actuation (units ( unknown) date) nasal unknown) (unknown) (no (unknown) (unknown) measuring (units (unkn own) date) unknown) (unknown) (no (unknown) (unknown) meclizine 25 mg (units (unknown) date) tablet 25 mg PO QID unknown) PRN #30 tab 10/09/21 (unknown) (no (unknown) (unknown) methocarbamol 500 (units (unknown) date) mg tablet 500 mg PO unknown) Q8H PRN #14 tab 11/19/21 (unknown) (no (unknown) (unknown) metoprolol (units (unk nown) date) tartrate 100 mg unknown) tablet 100 mg PO BID 10/16/18 10/08/21 (unknown) (no (unknown) (unknown) mg tablet (units (unkn own) date) (Percocet) unknown) (unknown) (no (unknown) (unknown) mild distress. (units (unknown) date) GCS 15, smells of unknown) alcohol and slurring his words (unknown) (no (unknown) (unknown) moderate (units (unkno wn) date) unknown) (unknown) (no (unknown) (unknown) multiple levels as (units (unknown) date) described. unknown) (unknown) (no (unknown) (unknown) multivitamin (units (u nknown) date) (Multiple Vitamins) unknown) 1 tab PO DAILY #0 12/20/16 10/08/21 (unknown) (no (unknown) (unknown) no loss of (units (unk nown) date) consciousness and unknown) he has had no nausea or vomiting. He denies any (unknown) (no (unknown) (unknown) other injuries (units (unknown) date) such as neck, back unknown) or extremities. His states that he (unknown) (no (unknown) (unknown) oxycodone 5 mg (units (unknown) date) tablet 10 mg PO unknown) Q4-5H PRN #60 tab 11/06/20 (unknown) (no (unknown) (unknown) oxycodone-acetamin (units (unknown) date) ophen 5 mg-325 1 unknown) tab PO Q8H PRN #10 tab 11/19/21 (unknown) (no (unknown) (unknown) oxycodone-acetamin (units (unknown) date) ophen 5 mg-325 1 unknown) tab PO TID PRN #10 tab 11/19/21 (unknown) (no (unknown) (unknown) paravertebral (units ( unknown) date) unknown) (unknown) (no (unknown) (unknown) patient (units (unkno wn) date) unknown) (unknown) (no (unknown) (unknown) prednisone 20 mg (units (unknown) date) tablet 20 mg PO unknown) DAILY #32 tab 11/28/21 (unknown) (no (unknown) (unknown) prednisone 50 mg (units (unknown) date) tablet 50 mg PO unknown) DAILY #5 tab 11/19/21 (unknown) (no (unknown) (unknown) prominence.? (units (u nknown) date) unknown) (unknown) (no (unknown) (unknown) release 24 hr (units ( unknown) date) (Glucotrol XL) unknown) (unknown) (no (unknown) (unknown) seizures, (units (unkn own) date) incoordination. unknown) (unknown) (no (unknown) (unknown) sequelae of (units (un known) date) unknown) (unknown) (no (unknown) (unknown) sinusitis.? The (units (unknown) date) unknown) (unknown) (no (unknown) (unknown) size.? (units (unkno wn) date) unknown) (unknown) (no (unknown) (unknown) solution for (units (u nknown) date) nebulization unknown) (unknown) (no (unknown) (unknown) solution for (units (u nknown) date) nebulization unknown) (unknown) (no (unknown) (unknown) spray,suspension (units (unknown) date) unknown) (unknown) (no (unknown) (unknown) study.? There are (units (unknown) date) postsurgical unknown) changes also redemonstrated status post prior (unknown) (no (unknown) (unknown) substance use (units ( unknown) date) type: does not use unknown) (unknown) (no (unknown) (unknown) suspicious (units (unk nown) date) unknown) (unknown) (no (unknown) (unknown) tablet (units (unkno wn) date) unknown) (unknown) (no (unknown) (unknown) that he would (units ( unknown) date) routinely take. He unknown) is activated as a modified trauma. (unknown) (no (unknown) (unknown) the prior (units (unkn own) date) unknown) (unknown) (no (unknown) (unknown) thickening (units (unk nown) date) unknown) (unknown) (no (unknown) (unknown) to the (units (unkno wn) date) unknown) (unknown) (no (unknown) (unknown) trazodone 100 mg (units (unknown) date) tablet 400 tab PO unknown) BEDTIME 12/09/17 10/08/21 (unknown) (no (unknown) (unknown) varenicline (units (un known) date) [VARENICLINE] unknown) AdvReac Severe Paranoia Verified 11/28/21 15:33 (unknown) (no (unknown) (unknown) vertex, with (units (u nknown) date) coronal and unknown) sagittal reformats.? For radiation dose reduction, the (unknown) (no (unknown) (unknown) vomiting/hypertens (units (unknown) date) ion/dizziness. He unknown) has spoken with and patient and they (unknown) (no (unknown) (unknown) was used:? (units (unk nown) date) automated exposure unknown) control, adjustment of mA and/or kV according to (unknown) (no (unknown) (unknown) within the (units (unk nown) date) visualized left unknown) maxillary sinus suggesting sequelae of chronic (unknown) (no (unknown) (unknown) without erythema, (units (unknown) date) tonsillar unknown) hypertrophy or exudate. Airway patent. Result panel 43 (unknown) (no (unknown) (unknown) (no value) (units (unk nown) date) unknown) (unknown) (no (unknown) (unknown) (no value) (units (unk nown) date) unknown) (unknown) (no (unknown) (unknown) Date of Service: (units (unknown) date) 12/08/21 unknown) (unknown) (no (unknown) (unknown) (no value) (units (unk nown) date) unknown) (unknown) (no (unknown) (unknown) - (units (unkno wn) date) unknown) (unknown) (no (unknown) (unknown) 12/07/21 23:05 (units (unknown) date) unknown) (unknown) (no (unknown) (unknown) ANXIETY, (units (unkno wn) date) unknown) (unknown) (no (unknown) (unknown) Allergies (units (unkn own) date) unknown) (unknown) (no (unknown) (unknown) DIZZINESS (units (unkn own) date) unknown) (unknown) (no (unknown) (unknown) EXPOSURE (units (unkno wn) date) unknown) (unknown) (no (unknown) (unknown) History + Physical (units (unknown) date) Report unknown) (unknown) (no (unknown) (unknown) Home Medications (units (unknown) date) unknown) (unknown) (no (unknown) (unknown) [facility] (units (unknown) date) [address] [place] [address] unknown) [place] [address] (unknown) (no (unknown) (unknown) JERKING, (units (unkno wn) date) unknown) (unknown) (no (unknown) (unknown) Laboratory Results (units (unknown) date) - last 24 hr unknown) (unknown) (no (unknown) (unknown) MINUTES (units (unkno wn) date) unknown) (unknown) (no (unknown) (unknown) NAUSEA W/I (units (unk nown) date) unknown) (unknown) (no (unknown) (unknown) W/EXTENDED (units (unk nown) date) unknown) (unknown) (no (unknown) (unknown) (no value) (units (unk nown) date) unknown) (unknown) (no (unknown) (unknown) 12/07/21 12/07/21 (units (unknown) date) 12/07/21 unknown) (unknown) (no (unknown) (unknown) 12/07/21 12/08/21 (units (unknown) date) unknown) (unknown) (no (unknown) (unknown) 23:05 23:05 23:05 (units (unknown) date) unknown) (unknown) (no (unknown) (unknown) 23:05 23:44 23:57 (units (unknown) date) unknown) (unknown) (no (unknown) (unknown) 23:57 01:33 (units (un known) date) unknown) (unknown) (no (unknown) (unknown) 12/08/21 (units (unkno wn) date) unknown) (unknown) (no (unknown) (unknown) Medication (units (unk nown) date) Instructions unknown) Recorded Confirmed Type (unknown) (no (unknown) (unknown) (Athenol) (units (unkn own) date) unknown) (unknown) (no (unknown) (unknown) (Tessalon Perles) (units (unknown) date) unknown) (unknown) (no (unknown) (unknown) (Xopenex HFA) (units ( unknown) date) unknown) (unknown) (no (unknown) (unknown) (past 8 hours): (units (unknown) date) unknown) (unknown) (no (unknown) (unknown) [id number] (units (unkn own) date) unknown) (unknown) (no (unknown) (unknown) 06:32 12/08/21 (units (unknown) date) unknown) (unknown) (no (unknown) (unknown) 06:33 12/08/21 (units (unknown) date) unknown) (unknown) (no (unknown) (unknown) 07:00 (units (unkno wn) date) unknown) (unknown) (no (unknown) (unknown) 07:18 12/08/21 (units (unknown) date) unknown) (unknown) (no (unknown) (unknown) 07:26 12/08/21 (units (unknown) date) unknown) (unknown) (no (unknown) (unknown) 07:30 (units (unkno wn) date) unknown) (unknown) (no (unknown) (unknown) 07:42 12/08/21 (units (unknown) date) unknown) (unknown) (no (unknown) (unknown) 07:49 12/08/21 (units (unknown) date) unknown) (unknown) (no (unknown) (unknown) 07:50 (units (unkno wn) date) unknown) (unknown) (no (unknown) (unknown) 08:00 12/08/21 (units (unknown) date) unknown) (unknown) (no (unknown) (unknown) 08:11 12/08/21 (units (unknown) date) unknown) (unknown) (no (unknown) (unknown) 08:30 (units (unkno wn) date) unknown) (unknown) (no (unknown) (unknown) 08:45 12/08/21 (units (unknown) date) unknown) (unknown) (no (unknown) (unknown) 08:49 12/08/21 (units (unknown) date) unknown) (unknown) (no (unknown) (unknown) 09:00 (units (unkno wn) date) unknown) (unknown) (no (unknown) (unknown) 09:30 12/08/21 (units (unknown) date) unknown) (unknown) (no (unknown) (unknown) 10:00 12/08/21 (units (unknown) date) unknown) (unknown) (no (unknown) (unknown) 10:30 (units (unkno wn) date) unknown) (unknown) (no (unknown) (unknown) 10:51 12/08/21 (units (unknown) date) unknown) (unknown) (no (unknown) (unknown) 11:00 12/08/21 (units (unknown) date) unknown) (unknown) (no (unknown) (unknown) 11:11 (units (unkno wn) date) unknown) (unknown) (no (unknown) (unknown) 11:21 (units (unkno wn) date) unknown) (unknown) (no (unknown) (unknown) ALT (units (unkno wn) date) unknown) (unknown) (no (unknown) (unknown) ALT (units (unkno wn) date) unknown) (unknown) (no (unknown) (unknown) ALT 31 (units (unkno wn) date) unknown) (unknown) (no (unknown) (unknown) ANTIBIOTICS)] (units ( unknown) date) unknown) (unknown) (no (unknown) (unknown) AST (units (unkno wn) date) unknown) (unknown) (no (unknown) (unknown) AST (units (unkno wn) date) unknown) (unknown) (no (unknown) (unknown) AST 32 (units (unkno wn) date) unknown) (unknown) (no (unknown) (unknown) Acetaminophen (units ( unknown) date) unknown) (unknown) (no (unknown) (unknown) Acetaminophen (units ( unknown) date) unknown) (unknown) (no (unknown) (unknown) Acetaminophen < (units (unknown) date) 10 unknown) (unknown) (no (unknown) (unknown) Achalasia (units (unkn own) date) unknown) (unknown) (no (unknown) (unknown) Age/Sex: 76 / M (units (unknown) date) unknown) (unknown) (no (unknown) (unknown) Albumin (units (unkno wn) date) unknown) (unknown) (no (unknown) (unknown) Albumin (units (unkno wn) date) unknown) (unknown) (no (unknown) (unknown) Albumin 4.1 (units ( unknown) date) unknown) (unknown) (no (unknown) (unknown) Albumin/Globulin (units (unknown) date) Ratio unknown) (unknown) (no (unknown) (unknown) Albumin/Globulin (units (unknown) date) Ratio unknown) (unknown) (no (unknown) (unknown) Albumin/Globulin (units (unknown) date) Ratio 1.4 unknown) (unknown) (no (unknown) (unknown) Alkaline (units (unkno wn) date) Phosphatase unknown) (unknown) (no (unknown) (unknown) Alkaline (units (unkno wn) date) Phosphatase unknown) (unknown) (no (unknown) (unknown) Alkaline (units (unkno wn) date) Phosphatase 64 unknown) (unknown) (no (unknown) (unknown) Allergy/AdvReac (units (unknown) date) Type Severity unknown) Reaction Status Date / Time (unknown) (no (unknown) (unknown) Anginal pain (units (u nknown) date) unknown) (unknown) (no (unknown) (unknown) Antibiotics) (units (u nknown) date) unknown) (unknown) (no (unknown) (unknown) Assessment + Plan (units (unknown) date) unknown) (unknown) (no (unknown) (unknown) Asthma (units (unkno wn) date) unknown) (unknown) (no (unknown) (unknown) Atrial (units (unkno wn) date) fibrillation unknown) (unknown) (no (unknown) (unknown) BUN (units (unkno wn) date) unknown) (unknown) (no (unknown) (unknown) BUN (units (unkno wn) date) unknown) (unknown) (no (unknown) (unknown) BUN 21 H (units (unk nown) date) unknown) (unknown) (no (unknown) (unknown) BUN/Creatinine (units (unknown) date) Ratio unknown) (unknown) (no (unknown) (unknown) BUN/Creatinine (units (unknown) date) Ratio unknown) (unknown) (no (unknown) (unknown) BUN/Creatinine (units (unknown) date) Ratio 23.9 H unknown) (unknown) (no (unknown) (unknown) Baso # (Auto) (units ( unknown) date) unknown) (unknown) (no (unknown) (unknown) Baso # (Auto) (units ( unknown) date) unknown) (unknown) (no (unknown) (unknown) Baso # (Auto) 100 (units (unknown) date) unknown) (unknown) (no (unknown) (unknown) Baso % (Auto) (units ( unknown) date) unknown) (unknown) (no (unknown) (unknown) Baso % (Auto) (units ( unknown) date) unknown) (unknown) (no (unknown) (unknown) Baso % (Auto) 0.8 (units (unknown) date) unknown) (unknown) (no (unknown) (unknown) Been Physically (units (unknown) date) Hurt or No unknown) (unknown) (no (unknown) (unknown) Blood Pressure (units (unknown) date) unknown) (unknown) (no (unknown) (unknown) Blood Pressure (units (unknown) date) 194/102 H 228/109 H unknown) (unknown) (no (unknown) (unknown) Blood Pressure (units (unknown) date) 212/100 H unknown) (unknown) (no (unknown) (unknown) Blood Pressure (units (unknown) date) 219/95 H unknown) (unknown) (no (unknown) (unknown) Blood Pressure (units (unknown) date) 168/76 H unknown) (unknown) (no (unknown) (unknown) Blood Pressure (units (unknown) date) 180/93 H 220/99 H unknown) 208/99 H (unknown) (no (unknown) (unknown) Blood Pressure (units (unknown) date) 205/73 H 133/65 unknown) 178/84 H (unknown) (no (unknown) (unknown) Blood Pressure (units (unknown) date) 212/99 H 201/96 H unknown) (unknown) (no (unknown) (unknown) COPD (chronic (units ( unknown) date) obstructive unknown) pulmonary disease) (unknown) (no (unknown) (unknown) Calcium (units (unkno wn) date) unknown) (unknown) (no (unknown) (unknown) Calcium (units (unkno wn) date) unknown) (unknown) (no (unknown) (unknown) Calcium 8.4 (units ( unknown) date) unknown) (unknown) (no (unknown) (unknown) Carbon Dioxide (units (unknown) date) unknown) (unknown) (no (unknown) (unknown) Carbon Dioxide (units (unknown) date) unknown) (unknown) (no (unknown) (unknown) Carbon Dioxide (units (unknown) date) 27 unknown) (unknown) (no (unknown) (unknown) Cervical spinal (units (unknown) date) stenosis unknown) (unknown) (no (unknown) (unknown) Chief complaint: (units (unknown) date) Back Pain unknown) (unknown) (no (unknown) (unknown) Chloride (units (unkno wn) date) unknown) (unknown) (no (unknown) (unknown) Chloride (units (unkno wn) date) unknown) (unknown) (no (unknown) (unknown) Chloride 104 (units (unknown) date) unknown) (unknown) (no (unknown) (unknown) 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 (10/22/16) (unknown) (no (unknown) (unknown) Coronary artery (units (unknown) date) disease unknown) (unknown) (no (unknown) (unknown) Creatinine (units (unk nown) date) unknown) (unknown) (no (unknown) (unknown) Creatinine (units (unk nown) date) unknown) (unknown) (no (unknown) (unknown) Creatinine 0.88 (units (unknown) date) unknown) (unknown) (no (unknown) (unknown) Critical Care (units ( unknown) date) time: unknown) (unknown) (no (unknown) (unknown) : 1945 (units (unknown) date) Acct:[id number] unknown) (unknown) (no (unknown) (unknown) Date Patient Seen: (units (unknown) date) 12/08/21 unknown) (unknown) (no (unknown) (unknown) Environment (units (un known) date) unknown) (unknown) (no (unknown) (unknown) Eos # (Auto) (units (u nknown) date) unknown) (unknown) (no (unknown) (unknown) Eos # (Auto) (units (u nknown) date) unknown) (unknown) (no (unknown) (unknown) Eos # (Auto) 100 (units (unknown) date) unknown) (unknown) (no (unknown) (unknown) Eos % (Auto) (units (u nknown) date) unknown) (unknown) (no (unknown) (unknown) Eos % (Auto) (units (u nknown) date) unknown) (unknown) (no (unknown) (unknown) Eos % (Auto) 2.0 (units (unknown) date) unknown) (unknown) (no (unknown) (unknown) Estimated GFR (units ( unknown) date) unknown) (unknown) (no (unknown) (unknown) Estimated GFR (units ( unknown) date) unknown) (unknown) (no (unknown) (unknown) Estimated GFR > (units (unknown) date) 60 unknown) (unknown) (no (unknown) (unknown) Ethyl Alcohol (units ( unknown) date) unknown) (unknown) (no (unknown) (unknown) Ethyl Alcohol (units ( unknown) date) unknown) (unknown) (no (unknown) (unknown) Ethyl Alcohol (units ( unknown) date) 111 H unknown) (unknown) (no (unknown) (unknown) Exam (units (unkno wn) date) unknown) (unknown) (no (unknown) (unknown) Family + Social (units (unknown) date) History unknown) (unknown) (no (unknown) (unknown) Family History (units (unknown) date) (Updated 12/08/21 @ unknown) 13:50 by Aditya Tapia DO) (unknown) (no (unknown) (unknown) Father (units (unkno wn) date) Hypertension unknown) (unknown) (no (unknown) (unknown) Feels Safe in (units ( unknown) date) Current Yes unknown) (unknown) (no (unknown) (unknown) Globulin (units (unkno wn) date) unknown) (unknown) (no (unknown) (unknown) Globulin (units (unkno wn) date) unknown) (unknown) (no (unknown) (unknown) Globulin 2.9 (units (unknown) date) unknown) (unknown) (no (unknown) (unknown) Glucose (units (unkno wn) date) unknown) (unknown) (no (unknown) (unknown) Glucose (units (unkno wn) date) unknown) (unknown) (no (unknown) (unknown) Glucose 124 H (units (unknown) date) unknown) (unknown) (no (unknown) (unknown) H/O arthroscopic (units (unknown) date) knee surgery unknown) (11/14/17) (unknown) (no (unknown) (unknown) Hct (units (unkno wn) date) unknown) (unknown) (no (unknown) (unknown) Hct (units (unkno wn) date) unknown) (unknown) (no (unknown) (unknown) Hct 46.0 (units (unkn own) date) unknown) (unknown) (no (unknown) (unknown) Hgb (units (unkno wn) date) unknown) (unknown) (no (unknown) (unknown) Hgb (units (unkno wn) date) unknown) (unknown) (no (unknown) (unknown) Hgb 15.6 (units (unkn own) date) unknown) (unknown) (no (unknown) (unknown) History (units (unkno wn) date) unknown) (unknown) (no (unknown) (unknown) History of Present (units (unknown) date) Illness unknown) (unknown) (no (unknown) (unknown) History of aortic (units (unknown) date) dissection unknown) () (unknown) (no (unknown) (unknown) History of (units (unk nown) date) arthroplasty of unknown) right knee (unknown) (no (unknown) (unknown) 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 (unknown) (no (unknown) (unknown) History of cardiac (units (unknown) date) cath () unknown) (unknown) (no (unknown) (unknown) History of (units (unk nown) date) esophageal surgery unknown) (unknown) (no (unknown) (unknown) History of (units (unk nown) date) incision and unknown) drainage () (unknown) (no (unknown) (unknown) History of prior (units (unknown) date) ablation treatment unknown) () (unknown) (no (unknown) (unknown) History of surgery (units (unknown) date) unknown) (unknown) (no (unknown) (unknown) Home Medications (units (unknown) date) and Allergies unknown) (unknown) (no (unknown) (unknown) Hx of (units (unkno wn) date) cholecystectomy unknown) (unknown) (no (unknown) (unknown) Hx of hernia (units (u nknown) date) repair unknown) (unknown) (no (unknown) (unknown) Hx of sinus (units (un known) date) surgery unknown) (unknown) (no (unknown) (unknown) Hypertension (units (u nknown) date) unknown) (unknown) (no (unknown) (unknown) I spent a total of (units (unknown) date) [] minutes of unknown) critical care time on this patient's care (unknown) (no (unknown) (unknown) INHIBITOR] (units (unk nown) date) unknown) (unknown) (no (unknown) (unknown) Inhibitor (units (unkn own) date) MUSCLES unknown) (unknown) (no (unknown) (unknown) Ischemic (units (unkno wn) date) cardiomyopathy unknown) (unknown) (no (unknown) (unknown) Labs (units (unkno wn) date) unknown) (unknown) (no (unknown) (unknown) Labs: (units (unkno wn) date) unknown) (unknown) (no (unknown) (unknown) Lactate (units (unkno wn) date) unknown) (unknown) (no (unknown) (unknown) Lactate 2.3 H (units (unknown) date) unknown) (unknown) (no (unknown) (unknown) Lactate 1.5 (units ( unknown) date) unknown) (unknown) (no (unknown) (unknown) Lymph # (Auto) (units (unknown) date) unknown) (unknown) (no (unknown) (unknown) Lymph # (Auto) (units (unknown) date) unknown) (unknown) (no (unknown) (unknown) Lymph # (Auto) (units (unknown) date) 1700 unknown) (unknown) (no (unknown) (unknown) Lymph % (Auto) (units (unknown) date) unknown) (unknown) (no (unknown) (unknown) Lymph % (Auto) (units (unknown) date) unknown) (unknown) (no (unknown) (unknown) Lymph % (Auto) (units (unknown) date) 23.0 L unknown) (unknown) (no (unknown) (unknown) MCH (units (unkno wn) date) unknown) (unknown) (no (unknown) (unknown) MCH (units (unkno wn) date) unknown) (unknown) (no (unknown) (unknown) MCH 31.7 (units (unkn own) date) unknown) (unknown) (no (unknown) (unknown) MCHC (units (unkno wn) date) unknown) (unknown) (no (unknown) (unknown) MCHC (units (unkno wn) date) unknown) (unknown) (no (unknown) (unknown) MCHC 34.0 (units (unk nown) date) unknown) (unknown) (no (unknown) (unknown) MCV (units (unkno wn) date) unknown) (unknown) (no (unknown) (unknown) MCV (units (unkno wn) date) unknown) (unknown) (no (unknown) (unknown) MCV 93.3 (units (unkn own) date) unknown) (unknown) (no (unknown) (unknown) Medical History (units (unknown) date) (Reviewed 12/08/21 unknown) @ 13:50 by Aditya Tapia DO) (unknown) (no (unknown) (unknown) Meds (units (unkno wn) date) unknown) (unknown) (no (unknown) (unknown) [place] # (Auto) (units ( unknown) date) unknown) (unknown) (no (unknown) (unknown) [place] # (Auto) (units ( unknown) date) unknown) (unknown) (no (unknown) (unknown) [place] # (Auto) 700 (units (unknown) date) unknown) (unknown) (no (unknown) (unknown) [place] % (Auto) (units ( unknown) date) unknown) (unknown) (no (unknown) (unknown) [place] % (Auto) (units ( unknown) date) unknown) (unknown) (no (unknown) (unknown) [place] % (Auto) 9.5 (units (unknown) date) unknown) (unknown) (no (unknown) (unknown) Mother (units (unknown) date) Stroke unknown) (unknown) (no (unknown) (unknown) Narcotic (units (unkno wn) date) dependence unknown) (unknown) (no (unknown) (unknown) Neck pain, chronic (units (unknown) date) unknown) (unknown) (no (unknown) (unknown) Neut # (Auto) (units ( unknown) date) unknown) (unknown) (no (unknown) (unknown) Neut # (Auto) (units ( unknown) date) unknown) (unknown) (no (unknown) (unknown) Neut # (Auto) (units ( unknown) date) 4800 unknown) (unknown) (no (unknown) (unknown) Neut % (Auto) (units ( unknown) date) unknown) (unknown) (no (unknown) (unknown) Neut % (Auto) (units ( unknown) date) unknown) (unknown) (no (unknown) (unknown) Neut % (Auto) (units ( unknown) date) 64.7 unknown) (unknown) (no (unknown) (unknown) Objective (units (unkn own) date) unknown) (unknown) (no (unknown) (unknown) Oxygen Delivery (units (unknown) date) Method Room Air unknown) (unknown) (no (unknown) (unknown) Patient History (units (unknown) date) unknown) (unknown) (no (unknown) (unknown) Patient: (units (unkno wn) date) Dominic Viveros Gisele unknown) MR#: M (unknown) (no (unknown) (unknown) Plt Count (units (unkn own) date) unknown) (unknown) (no (unknown) (unknown) Plt Count (units (unkn own) date) unknown) (unknown) (no (unknown) (unknown) Plt Count 241 (units (unknown) date) unknown) (unknown) (no (unknown) (unknown) Potassium (units (unkn own) date) unknown) (unknown) (no (unknown) (unknown) Potassium (units (unkn own) date) unknown) (unknown) (no (unknown) (unknown) Potassium 4.5 (units (unknown) date) unknown) (unknown) (no (unknown) (unknown) Prolactin (units (unkn own) date) unknown) (unknown) (no (unknown) (unknown) Prolactin (units (unkn own) date) unknown) (unknown) (no (unknown) (unknown) Prolactin 18.9 H (units (unknown) date) unknown) (unknown) (no (unknown) (unknown) Provider: (units (unkn own) date) Aditya Tapia D.O. unknown) (unknown) (no (unknown) (unknown) Pulse Oximetry 97 (units (unknown) date) 97 unknown) (unknown) (no (unknown) (unknown) Pulse Oximetry 93 (units (unknown) date) unknown) (unknown) (no (unknown) (unknown) Pulse Oximetry 93 (units (unknown) date) 92 unknown) (unknown) (no (unknown) (unknown) Pulse Oximetry 93 (units (unknown) date) 98 94 unknown) (unknown) (no (unknown) (unknown) Pulse Oximetry 95 (units (unknown) date) 98 94 unknown) (unknown) (no (unknown) (unknown) Pulse Oximetry 96 (units (unknown) date) 95 96 unknown) (unknown) (no (unknown) (unknown) Pulse Oximetry 96 (units (unknown) date) 96 98 unknown) (unknown) (no (unknown) (unknown) Pulse Oximetry 97 (units (unknown) date) 92 94 unknown) (unknown) (no (unknown) (unknown) Pulse Rate 66 64 (units (unknown) date) 68 unknown) (unknown) (no (unknown) (unknown) Pulse Rate 66 78 (units (unknown) date) 75 unknown) (unknown) (no (unknown) (unknown) Pulse Rate 69 65 (units (unknown) date) 69 unknown) (unknown) (no (unknown) (unknown) Pulse Rate 77 70 (units (unknown) date) 81 unknown) (unknown) (no (unknown) (unknown) Pulse Rate 89 79 (units (unknown) date) 85 unknown) (unknown) (no (unknown) (unknown) Pulse Rate 90 (units ( unknown) date) unknown) (unknown) (no (unknown) (unknown) Pulse Rate 91 H 85 (units (unknown) date) 100 H unknown) (unknown) (no (unknown) (unknown) Pulse Rate 94 H (units (unknown) date) 101 H 97 H unknown) (unknown) (no (unknown) (unknown) RBC (units (unkno wn) date) unknown) (unknown) (no (unknown) (unknown) RBC (units (unkno wn) date) unknown) (unknown) (no (unknown) (unknown) RBC 4.93 (units (unkn own) date) unknown) (unknown) (no (unknown) (unknown) RDW (units (unkno wn) date) unknown) (unknown) (no (unknown) (unknown) RDW (units (unkno wn) date) unknown) (unknown) (no (unknown) (unknown) RDW 13.7 (units (unkn own) date) unknown) (unknown) (no (unknown) (unknown) Respiratory Rate (units (unknown) date) unknown) (unknown) (no (unknown) (unknown) Respiratory Rate (units (unknown) date) unknown) (unknown) (no (unknown) (unknown) Respiratory Rate (units (unknown) date) 18 16 unknown) (unknown) (no (unknown) (unknown) Respiratory Rate (units (unknown) date) 25 H 30 H unknown) (unknown) (no (unknown) (unknown) Respiratory Rate (units (unknown) date) 19 18 18 unknown) (unknown) (no (unknown) (unknown) Respiratory Rate (units (unknown) date) 20 21 25 H unknown) (unknown) (no (unknown) (unknown) Respiratory Rate (units (unknown) date) 26 H 22 18 unknown) (unknown) (no (unknown) (unknown) Respiratory Rate (units (unknown) date) 27 H 19 25 H unknown) (unknown) (no (unknown) (unknown) Result Diagrams: (units (unknown) date) unknown) (unknown) (no (unknown) (unknown) S/P CABG x 3 (units (u nknown) date) () unknown) (unknown) (no (unknown) (unknown) S/P cervical (units (u nknown) date) spinal fusion unknown) (unknown) (no (unknown) (unknown) S/P lumbar fusion (units (unknown) date) unknown) (unknown) (no (unknown) (unknown) SARS-CoV-2 (PCR) (units (unknown) date) unknown) (unknown) (no (unknown) (unknown) SARS-CoV-2 (PCR) (units (unknown) date) unknown) (unknown) (no (unknown) (unknown) SARS-CoV-2 (PCR) (units (unknown) date) Negative unknown) (unknown) (no (unknown) (unknown) Safety + (units (unkno wn) date) Behavioral: unknown) (unknown) (no (unknown) (unknown) Salicylates (units (un known) date) unknown) (unknown) (no (unknown) (unknown) Salicylates (units (un known) date) unknown) (unknown) (no (unknown) (unknown) Salicylates < (units (unknown) date) 1.0 unknown) (unknown) (no (unknown) (unknown) Signed By: (units (unk nown) date) unknown) (unknown) (no (unknown) (unknown) Smoking Status (units (unknown) date) Former smoker unknown) (unknown) (no (unknown) (unknown) Social History: (units (unknown) date) unknown) (unknown) (no (unknown) (unknown) Sodium (units (unkno wn) date) unknown) (unknown) (no (unknown) (unknown) Sodium (units (unkno wn) date) unknown) (unknown) (no (unknown) (unknown) Sodium 140 (units (u nknown) date) unknown) (unknown) (no (unknown) (unknown) [id number] (units (unknown) date) Reductase AdvReac unknown) Mild WEAK Verified 11/28/21 15:33 (unknown) (no (unknown) (unknown) Substance Use Type (units (unknown) date) does not use unknown) (unknown) (no (unknown) (unknown) Sulfa (Sulfonamide (units (unknown) date) Allergy Mild RASH unknown) Verified 11/28/21 15:33 (unknown) (no (unknown) (unknown) Surgical History (units (unknown) date) (Reviewed 12/08/21 unknown) @ 13:50 by Aditya Tapia DO) (unknown) (no (unknown) (unknown) TSH (units (unkno wn) date) unknown) (unknown) (no (unknown) (unknown) TSH (units (unkno wn) date) unknown) (unknown) (no (unknown) (unknown) TSH 2.07 (units (unkn own) date) unknown) (unknown) (no (unknown) (unknown) Threatened By a (units (unknown) date) Person unknown) (unknown) (no (unknown) (unknown) Time Patient Seen: (units (unknown) date) 13:50 unknown) (unknown) (no (unknown) (unknown) Time Spent With (units (unknown) date) Patient unknown) (unknown) (no (unknown) (unknown) Tobacco + (units (unkn own) date) Substance use: unknown) (unknown) (no (unknown) (unknown) Tobacco type (units (u nknown) date) cigarettes unknown) (unknown) (no (unknown) (unknown) Total Bilirubin (units (unknown) date) unknown) (unknown) (no (unknown) (unknown) Total Bilirubin (units (unknown) date) unknown) (unknown) (no (unknown) (unknown) Total Bilirubin (units (unknown) date) 0.9 unknown) (unknown) (no (unknown) (unknown) Total Protein (units ( unknown) date) unknown) (unknown) (no (unknown) (unknown) Total Protein (units ( unknown) date) unknown) (unknown) (no (unknown) (unknown) Total Protein (units ( unknown) date) 7.0 unknown) (unknown) (no (unknown) (unknown) U Benzodiazepines (units (unknown) date) Scrn unknown) (unknown) (no (unknown) (unknown) U Benzodiazepines (units (unknown) date) Scrn Positive H unknown) (unknown) (no (unknown) (unknown) U Marijuana (THC) (units (unknown) date) Screen unknown) (unknown) (no (unknown) (unknown) U Marijuana (THC) (units (unknown) date) Screen Negative unknown) (unknown) (no (unknown) (unknown) U Methamphetamines (units (unknown) date) Scrn unknown) (unknown) (no (unknown) (unknown) U Methamphetamines (units (unknown) date) Scrn Negative unknown) (unknown) (no (unknown) (unknown) U Opiates 300ng/mL (units (unknown) date) cut unknown) (unknown) (no (unknown) (unknown) U Opiates 300ng/mL (units (unknown) date) cut Positive H unknown) (unknown) (no (unknown) (unknown) U Tricyclic (units (un known) date) Antidepress unknown) (unknown) (no (unknown) (unknown) U Tricyclic (units (un known) date) Antidepress unknown) Negative (unknown) (no (unknown) (unknown) Ur Amphetamines (units (unknown) date) Screen unknown) (unknown) (no (unknown) (unknown) Ur Amphetamines (units (unknown) date) Screen Negative unknown) (unknown) (no (unknown) (unknown) Ur Barbiturates (units (unknown) date) Screen unknown) (unknown) (no (unknown) (unknown) Ur Barbiturates (units (unknown) date) Screen Negative unknown) (unknown) (no (unknown) (unknown) Ur Culture (units (unk nown) date) Indicated? unknown) (unknown) (no (unknown) (unknown) Ur Culture (units (unk nown) date) Indicated? unknown) (unknown) (no (unknown) (unknown) Ur Culture (units (unk nown) date) Indicated? Cult unknown) not indicated (unknown) (no (unknown) (unknown) Ur Leukocyte (units (u nknown) date) Esterase unknown) (unknown) (no (unknown) (unknown) Ur Leukocyte (units (u nknown) date) Esterase unknown) (unknown) (no (unknown) (unknown) Ur Leukocyte (units (u nknown) date) Esterase unknown) Negative (unknown) (no (unknown) (unknown) Ur MDMA Scrn (units (u nknown) date) (Ecstasy) unknown) (unknown) (no (unknown) (unknown) Ur MDMA Scrn (units (u nknown) date) (Ecstasy) Negative unknown) (unknown) (no (unknown) (unknown) Ur Oxycodone (units (u nknown) date) Screen unknown) (unknown) (no (unknown) (unknown) Ur Oxycodone (units (u nknown) date) Screen Negative unknown) (unknown) (no (unknown) (unknown) Ur Phencyclidine (units (unknown) date) Scrn unknown) (unknown) (no (unknown) (unknown) Ur Phencyclidine (units (unknown) date) Scrn Negative unknown) (unknown) (no (unknown) (unknown) Ur Specific (units (un known) date) [place] unknown) (unknown) (no (unknown) (unknown) Ur Specific (units (un known) date) [place] unknown) (unknown) (no (unknown) (unknown) Ur Specific (units (un known) date) [place] 1.020 unknown) (unknown) (no (unknown) (unknown) Ur Squamous Epith (units (unknown) date) Cells unknown) (unknown) (no (unknown) (unknown) Ur Squamous Epith (units (unknown) date) Cells unknown) (unknown) (no (unknown) (unknown) Ur Squamous Epith (units (unknown) date) Cells 0-1 /hpf unknown) (unknown) (no (unknown) (unknown) Urine Appearance (units (unknown) date) unknown) (unknown) (no (unknown) (unknown) Urine Appearance (units (unknown) date) unknown) (unknown) (no (unknown) (unknown) Urine Appearance (units (unknown) date) Clear unknown) (unknown) (no (unknown) (unknown) Urine Bacteria (units (unknown) date) unknown) (unknown) (no (unknown) (unknown) Urine Bacteria (units (unknown) date) unknown) (unknown) (no (unknown) (unknown) Urine Bacteria (units (unknown) date) None seen unknown) (unknown) (no (unknown) (unknown) Urine Bilirubin (units (unknown) date) unknown) (unknown) (no (unknown) (unknown) Urine Bilirubin (units (unknown) date) unknown) (unknown) (no (unknown) (unknown) Urine Bilirubin (units (unknown) date) Negative unknown) (unknown) (no (unknown) (unknown) Urine Cocaine (units ( unknown) date) Screen unknown) (unknown) (no (unknown) (unknown) Urine Cocaine (units ( unknown) date) Screen Negative unknown) (unknown) (no (unknown) (unknown) Urine Color (units (un known) date) unknown) (unknown) (no (unknown) (unknown) Urine Color (units (un known) date) unknown) (unknown) (no (unknown) (unknown) Urine Color (units (un known) date) Yellow unknown) (unknown) (no (unknown) (unknown) Urine Glucose (UA) (units (unknown) date) unknown) (unknown) (no (unknown) (unknown) Urine Glucose (UA) (units (unknown) date) unknown) (unknown) (no (unknown) (unknown) Urine Glucose (UA) (units (unknown) date) Negative unknown) (unknown) (no (unknown) (unknown) Urine Ketones (units ( unknown) date) unknown) (unknown) (no (unknown) (unknown) Urine Ketones (units ( unknown) date) unknown) (unknown) (no (unknown) (unknown) Urine Ketones (units ( unknown) date) Trace H unknown) (unknown) (no (unknown) (unknown) Urine Methadone (units (unknown) date) Screen unknown) (unknown) (no (unknown) (unknown) Urine Methadone (units (unknown) date) Screen Negative unknown) (unknown) (no (unknown) (unknown) Urine Nitrate (units ( unknown) date) unknown) (unknown) (no (unknown) (unknown) Urine Nitrate (units ( unknown) date) unknown) (unknown) (no (unknown) (unknown) Urine Nitrate (units ( unknown) date) Negative unknown) (unknown) (no (unknown) (unknown) Urine Occult Blood (units (unknown) date) unknown) (unknown) (no (unknown) (unknown) Urine Occult Blood (units (unknown) date) unknown) (unknown) (no (unknown) (unknown) Urine Occult Blood (units (unknown) date) Negative unknown) (unknown) (no (unknown) (unknown) Urine Protein (units ( unknown) date) unknown) (unknown) (no (unknown) (unknown) Urine Protein (units ( unknown) date) unknown) (unknown) (no (unknown) (unknown) Urine Protein (units ( unknown) date) Negative unknown) (unknown) (no (unknown) (unknown) Urine RBC (units (unkn own) date) unknown) (unknown) (no (unknown) (unknown) Urine RBC (units (unkn own) date) unknown) (unknown) (no (unknown) (unknown) Urine RBC None (units (unknown) date) seen unknown) (unknown) (no (unknown) (unknown) Urine Urobilinogen (units (unknown) date) unknown) (unknown) (no (unknown) (unknown) Urine Urobilinogen (units (unknown) date) unknown) (unknown) (no (unknown) (unknown) Urine Urobilinogen (units (unknown) date) 0.2 unknown) (unknown) (no (unknown) (unknown) Urine WBC (units (unkn own) date) unknown) (unknown) (no (unknown) (unknown) Urine WBC (units (unkn own) date) unknown) (unknown) (no (unknown) (unknown) Urine WBC None (units (unknown) date) seen unknown) (unknown) (no (unknown) (unknown) Urine pH (units (unkno wn) date) unknown) (unknown) (no (unknown) (unknown) Urine pH (units (unkno wn) date) unknown) (unknown) (no (unknown) (unknown) Urine pH 5.0 (units (unknown) date) unknown) (unknown) (no (unknown) (unknown) Ventricular (units (un known) date) bigeminy unknown) (unknown) (no (unknown) (unknown) Vital Signs (units (un known) date) unknown) (unknown) (no (unknown) (unknown) WBC (units (unkno wn) date) unknown) (unknown) (no (unknown) (unknown) WBC (units (unkno wn) date) unknown) (unknown) (no (unknown) (unknown) WBC 7.4 (units (unkno wn) date) unknown) (unknown) (no (unknown) (unknown) [Embedded Image (units (unknown) date) Not Available] unknown) (unknown) (no (unknown) (unknown) [[id number] (units (unknown) date) REDUCTASE unknown) (unknown) (no (unknown) (unknown) [SULFA (units (unkno wn) date) (SULFONAMIDE unknown) (unknown) (no (unknown) (unknown) acetaminophen 300 (units (unknown) date) mg-codeine 30 mg 1 unknown) tab PO Q6HR PRN 10/08/21 10/08/21 History (unknown) (no (unknown) (unknown) acetaminophen 325 (units (unknown) date) mg tablet 650 mg PO unknown) Q6H PRN #60 tab 11/06/20 10/08/21 Rx (unknown) (no (unknown) (unknown) albuterol sulfate (units (unknown) date) 1.25 mg/3 mL 2.5 mg unknown) (6 mL) INHALATION QID #90 ml 11/28/21 Rx (unknown) (no (unknown) (unknown) alcohol intake (units (unknown) date) current unknown) (unknown) (no (unknown) (unknown) alcohol intake (units (unknown) date) frequency unknown) holiday/special occasion (unknown) (no (unknown) (unknown) benzonatate 100 mg (units (unknown) date) capsule 100 mg PO unknown) TID PRN #14 cap 03/05/21 10/08/21 Rx (unknown) (no (unknown) (unknown) buprenorphine (units ( unknown) date) [BUPRENORPHINE] unknown) AdvReac Mild NAUSEA, Verified 11/28/21 15:33 (unknown) (no (unknown) (unknown) cefdinir 300 mg (units (unknown) date) capsule 300 mg PO unknown) BID #20 cap 10/09/21 Rx (unknown) (no (unknown) (unknown) celecoxib (units (unkn own) date) [CELECOXIB] Allergy unknown) Mild SWELLING Verified 11/28/21 15:33 (unknown) (no (unknown) (unknown) cetirizine 10 mg (units (unknown) date) capsule (Zyrtec) 10 unknown) mg PO DAILY 05/22/19 10/08/21 History (unknown) (no (unknown) (unknown) clonidine HCl 0.1 (units (unknown) date) mg tablet 0.2 mg PO unknown) TID 12/08/21 12/08/21 History (unknown) (no (unknown) (unknown) diazepam [From (units (unknown) date) Valium] AdvReac unknown) Confusion Verified 11/28/21 15:33 (unknown) (no (unknown) (unknown) diclofenac sodium (units (unknown) date) 1 % topical gel 2 g unknown) TOPICAL QID #100 g 11/19/21 Rx (unknown) (no (unknown) (unknown) ferrous sulfate (units (unknown) date) 325 mg (65 mg 325 unknown) mg PO DAILY 10/19/19 10/08/21 History (unknown) (no (unknown) (unknown) fluticasone (units (un known) date) propionate 50 1 unknown) spray INTRANASAL DAILY PRN #0 11/02/17 10/08/21 (unknown) (no (unknown) (unknown) furosemide 40 mg (units (unknown) date) tablet (Lasix) 40 unknown) mg PO DAILY 10/08/21 10/08/21 History (unknown) (no (unknown) (unknown) glipizide 2.5 mg (units (unknown) date) tablet, extended unknown) 2.5 mg PO DAILY 10/08/21 10/08/21 History (unknown) (no (unknown) (unknown) household members (units (unknown) date) spouse unknown) (unknown) (no (unknown) (unknown) hyoscyamine (units (un known) date) [HYOSCYAMINE] unknown) AdvReac Mild LEG Verified 11/28/21 15:33 (unknown) (no (unknown) (unknown) iron) (units (unkno wn) date) tablet,delayed unknown) release (unknown) (no (unknown) (unknown) latex [LATEX] (units ( unknown) date) Allergy Mild RASH unknown) Verified 11/28/21 15:33 (unknown) (no (unknown) (unknown) levalbuterol HCl (units (unknown) date) 1.25 mg/3 mL 3 ml unknown) INHALATION Q6H PRN 10/16/18 10/08/21 History (unknown) (no (unknown) (unknown) levalbuterol (units (u nknown) date) tartrate 45 1 puff unknown) INHALATION Q4-6H PRN #15 06/22/18 10/08/21 Rx (unknown) (no (unknown) (unknown) lisinopril 10 mg (units (unknown) date) tablet 10 mg PO unknown) DAILY 12/08/21 12/08/21 History (unknown) (no (unknown) (unknown) mcg/actuation (units ( unknown) date) aerosol inhaler unknown) gram (unknown) (no (unknown) (unknown) mcg/actuation (units ( unknown) date) nasal unknown) (unknown) (no (unknown) (unknown) meclizine 25 mg (units (unknown) date) tablet 25 mg PO QID unknown) PRN #30 tab 10/09/21 Rx (unknown) (no (unknown) (unknown) methocarbamol 500 (units (unknown) date) mg tablet 500 mg PO unknown) Q8H PRN #14 tab 11/19/21 Rx (unknown) (no (unknown) (unknown) metoprolol (units (unk nown) date) tartrate 100 mg unknown) tablet 100 mg PO DAILY 10/16/18 10/08/21 History (unknown) (no (unknown) (unknown) mg tablet (units (unkn own) date) (Percocet) unknown) (unknown) (no (unknown) (unknown) multivitamin (units (u nknown) date) (Multiple Vitamins) unknown) 1 tab PO DAILY #0 12/20/16 10/08/21 History (unknown) (no (unknown) (unknown) oxycodone 5 mg (units (unknown) date) tablet 10 mg PO unknown) Q4-5H PRN #60 tab 11/06/20 10/08/21 Rx (unknown) (no (unknown) (unknown) oxycodone-acetamin (units (unknown) date) ophen 5 mg-325 1 unknown) tab PO Q8H PRN #10 tab 11/19/21 Rx (unknown) (no (unknown) (unknown) oxycodone-acetamin (units (unknown) date) ophen 5 mg-325 1 unknown) tab PO TID PRN #10 tab 11/19/21 Rx (unknown) (no (unknown) (unknown) prednisone 20 mg (units (unknown) date) tablet 20 mg PO unknown) DAILY #32 tab 11/28/21 Rx (unknown) (no (unknown) (unknown) prednisone 50 mg (units (unknown) date) tablet 50 mg PO unknown) DAILY #5 tab 11/19/21 Rx (unknown) (no (unknown) (unknown) release 24 hr (units ( unknown) date) (Glucotrol XL) unknown) (unknown) (no (unknown) (unknown) solution for (units (u nknown) date) nebulization unknown) (unknown) (no (unknown) (unknown) spray,suspension (units (unknown) date) unknown) (unknown) (no (unknown) (unknown) tablet (units (unkno wn) date) unknown) (unknown) (no (unknown) (unknown) today; this time (units (unknown) date) is exclusive of unknown) procedural time. (unknown) (no (unknown) (unknown) trazodone 100 mg (units (unknown) date) tablet 400 tab PO unknown) BEDTIME 12/09/17 10/08/21 History (unknown) (no (unknown) (unknown) varenicline (units (un known) date) [VARENICLINE] unknown) AdvReac Severe Paranoia Verified 11/28/21 15:33 Result panel 44 (unknown) (no (unknown) (unknown) (no value) (units (unk nown) date) unknown) (unknown) (no (unknown) (unknown) (no value) (units (unk nown) date) unknown) (unknown) (no (unknown) (unknown) Date of Service: (units (unknown) date) 12/08/21 unknown) (unknown) (no (unknown) (unknown) (no value) (units (unk nown) date) unknown) (unknown) (no (unknown) (unknown) - (units (unkno wn) date) unknown) (unknown) (no (unknown) (unknown) 12/07/21 23:05 (units (unknown) date) unknown) (unknown) (no (unknown) (unknown) ANXIETY, (units (unkno wn) date) unknown) (unknown) (no (unknown) (unknown) Allergies (units (unkn own) date) unknown) (unknown) (no (unknown) (unknown) DIZZINESS (units (unkn own) date) unknown) (unknown) (no (unknown) (unknown) EXPOSURE (units (unkno wn) date) unknown) (unknown) (no (unknown) (unknown) History + Physical (units (unknown) date) Report unknown) (unknown) (no (unknown) (unknown) Home Medications (units (unknown) date) unknown) (unknown) (no (unknown) (unknown) [facility] (units (unknown) date) [address] unknown) [place] [address] (unknown) (no (unknown) (unknown) JERKING, (units (unkno wn) date) unknown) (unknown) (no (unknown) (unknown) Laboratory Results (units (unknown) date) - last 24 hr unknown) (unknown) (no (unknown) (unknown) MINUTES (units (unkno wn) date) unknown) (unknown) (no (unknown) (unknown) NAUSEA W/I (units (unk nown) date) unknown) (unknown) (no (unknown) (unknown) W/EXTENDED (units (unk nown) date) unknown) (unknown) (no (unknown) (unknown) (no value) (units (unk nown) date) unknown) (unknown) (no (unknown) (unknown) 12/07/21 12/07/21 (units (unknown) date) 12/07/21 unknown) (unknown) (no (unknown) (unknown) 12/07/21 12/08/21 (units (unknown) date) unknown) (unknown) (no (unknown) (unknown) 23:05 23:05 23:05 (units (unknown) date) unknown) (unknown) (no (unknown) (unknown) 23:05 23:44 23:57 (units (unknown) date) unknown) (unknown) (no (unknown) (unknown) 23:57 01:33 (units (un known) date) unknown) (unknown) (no (unknown) (unknown) 12/08/21 (units (unkno wn) date) unknown) (unknown) (no (unknown) (unknown) Medication (units (unk nown) date) Instructions unknown) Recorded Confirmed Type (unknown) (no (unknown) (unknown) (Athenol) (units (unkn own) date) unknown) (unknown) (no (unknown) (unknown) (Tessalon Perles) (units (unknown) date) unknown) (unknown) (no (unknown) (unknown) (Xopenex HFA) (units ( unknown) date) unknown) (unknown) (no (unknown) (unknown) (past 8 hours): (units (unknown) date) unknown) (unknown) (no (unknown) (unknown) [id number] (units (unkn own) date) unknown) (unknown) (no (unknown) (unknown) 06:32 12/08/21 (units (unknown) date) unknown) (unknown) (no (unknown) (unknown) 06:33 12/08/21 (units (unknown) date) unknown) (unknown) (no (unknown) (unknown) 07:00 (units (unkno wn) date) unknown) (unknown) (no (unknown) (unknown) 07:18 12/08/21 (units (unknown) date) unknown) (unknown) (no (unknown) (unknown) 07:26 12/08/21 (units (unknown) date) unknown) (unknown) (no (unknown) (unknown) 07:30 (units (unkno wn) date) unknown) (unknown) (no (unknown) (unknown) 07:42 12/08/21 (units (unknown) date) unknown) (unknown) (no (unknown) (unknown) 07:49 12/08/21 (units (unknown) date) unknown) (unknown) (no (unknown) (unknown) 07:50 (units (unkno wn) date) unknown) (unknown) (no (unknown) (unknown) 08:00 12/08/21 (units (unknown) date) unknown) (unknown) (no (unknown) (unknown) 08:11 12/08/21 (units (unknown) date) unknown) (unknown) (no (unknown) (unknown) 08:30 (units (unkno wn) date) unknown) (unknown) (no (unknown) (unknown) 08:45 12/08/21 (units (unknown) date) unknown) (unknown) (no (unknown) (unknown) 08:49 12/08/21 (units (unknown) date) unknown) (unknown) (no (unknown) (unknown) 09:00 (units (unkno wn) date) unknown) (unknown) (no (unknown) (unknown) 09:30 12/08/21 (units (unknown) date) unknown) (unknown) (no (unknown) (unknown) 1. alcohol (units (unk nown) date) withdrawal unknown) (unknown) (no (unknown) (unknown) 10:00 12/08/21 (units (unknown) date) unknown) (unknown) (no (unknown) (unknown) 10:30 (units (unkno wn) date) unknown) (unknown) (no (unknown) (unknown) 10:51 12/08/21 (units (unknown) date) unknown) (unknown) (no (unknown) (unknown) 11:00 12/08/21 (units (unknown) date) unknown) (unknown) (no (unknown) (unknown) 11:11 (units (unkno wn) date) unknown) (unknown) (no (unknown) (unknown) 11:21 (units (unkno wn) date) unknown) (unknown) (no (unknown) (unknown) 2. ground level (units (unknown) date) fall unknown) (unknown) (no (unknown) (unknown) 3. (units (unkno wn) date) unknown) (unknown) (no (unknown) (unknown) ALT (units (unkno wn) date) unknown) (unknown) (no (unknown) (unknown) ALT (units (unkno wn) date) unknown) (unknown) (no (unknown) (unknown) ALT 31 (units (unkno wn) date) unknown) (unknown) (no (unknown) (unknown) ANTIBIOTICS)] (units ( unknown) date) unknown) (unknown) (no (unknown) (unknown) AST (units (unkno wn) date) unknown) (unknown) (no (unknown) (unknown) AST (units (unkno wn) date) unknown) (unknown) (no (unknown) (unknown) AST 32 (units (unkno wn) date) unknown) (unknown) (no (unknown) (unknown) Abdomen: S NT ND. (units (unknown) date) unknown) (unknown) (no (unknown) (unknown) Acetaminophen (units ( unknown) date) unknown) (unknown) (no (unknown) (unknown) Acetaminophen (units ( unknown) date) unknown) (unknown) (no (unknown) (unknown) Acetaminophen < (units (unknown) date) 10 unknown) (unknown) (no (unknown) (unknown) Achalasia (units (unkn own) date) unknown) (unknown) (no (unknown) (unknown) Age/Sex: 76 / M (units (unknown) date) unknown) (unknown) (no (unknown) (unknown) Albumin (units (unkno wn) date) unknown) (unknown) (no (unknown) (unknown) Albumin (units (unkno wn) date) unknown) (unknown) (no (unknown) (unknown) Albumin 4.1 (units ( unknown) date) unknown) (unknown) (no (unknown) (unknown) Albumin/Globulin (units (unknown) date) Ratio unknown) (unknown) (no (unknown) (unknown) Albumin/Globulin (units (unknown) date) Ratio unknown) (unknown) (no (unknown) (unknown) Albumin/Globulin (units (unknown) date) Ratio 1.4 unknown) (unknown) (no (unknown) (unknown) Alkaline (units (unkno wn) date) Phosphatase unknown) (unknown) (no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 (unknown) (unknown) Urine Bilirubin (units (unknown) date) unknown) (unknown) (no (unknown) (unknown) Urine Bilirubin (units (unknown) date) Negative unknown) (unknown) (no (unknown) (unknown) Urine Cocaine (units ( unknown) date) Screen unknown) (unknown) (no (unknown) (unknown) Urine Cocaine (units ( unknown) date) Screen Negative unknown) (unknown) (no (unknown) (unknown) Urine Color (units (un known) date) unknown) (unknown) (no (unknown) (unknown) Urine Color (units (un known) date) unknown) (unknown) (no (unknown) (unknown) Urine Color (units (un known) date) Yellow unknown) (unknown) (no (unknown) (unknown) Urine Glucose (UA) (units (unknown) date) unknown) (unknown) (no (unknown) (unknown) Urine Glucose (UA) (units (unknown) date) unknown) (unknown) (no (unknown) (unknown) Urine Glucose (UA) (units (unknown) date) Negative unknown) (unknown) (no (unknown) (unknown) Urine Ketones (units ( unknown) date) unknown) (unknown) (no (unknown) (unknown) Urine Ketones (units ( unknown) date) unknown) (unknown) (no (unknown) (unknown) Urine Ketones (units ( unknown) date) Trace H unknown) (unknown) (no (unknown) (unknown) Urine Methadone (units (unknown) date) Screen unknown) (unknown) (no (unknown) (unknown) Urine Methadone (units (unknown) date) Screen Negative unknown) (unknown) (no (unknown) (unknown) Urine Nitrate (units ( unknown) date) unknown) (unknown) (no (unknown) (unknown) Urine Nitrate (units ( unknown) date) unknown) (unknown) (no (unknown) (unknown) Urine Nitrate (units ( unknown) date) Negative unknown) (unknown) (no (unknown) (unknown) Urine Occult Blood (units (unknown) date) unknown) (unknown) (no (unknown) (unknown) Urine Occult Blood (units (unknown) date) unknown) (unknown) (no (unknown) (unknown) Urine Occult Blood (units (unknown) date) Negative unknown) (unknown) (no (unknown) (unknown) Urine Protein (units ( unknown) date) unknown) (unknown) (no (unknown) (unknown) Urine Protein (units ( unknown) date) unknown) (unknown) (no (unknown) (unknown) Urine Protein (units ( unknown) date) Negative unknown) (unknown) (no (unknown) (unknown) Urine RBC (units (unkn own) date) unknown) (unknown) (no (unknown) (unknown) Urine RBC (units (unkn own) date) unknown) (unknown) (no (unknown) (unknown) Urine RBC None (units (unknown) date) seen unknown) (unknown) (no (unknown) (unknown) Urine Urobilinogen (units (unknown) date) unknown) (unknown) (no (unknown) (unknown) Urine Urobilinogen (units (unknown) date) unknown) (unknown) (no (unknown) (unknown) Urine Urobilinogen (units (unknown) date) 0.2 unknown) (unknown) (no (unknown) (unknown) Urine WBC (units (unkn own) date) unknown) (unknown) (no (unknown) (unknown) Urine WBC (units (unkn own) date) unknown) (unknown) (no (unknown) (unknown) Urine WBC None (units (unknown) date) seen unknown) (unknown) (no (unknown) (unknown) Urine pH (units (unkno wn) date) unknown) (unknown) (no (unknown) (unknown) Urine pH (units (unkno wn) date) unknown) (unknown) (no (unknown) (unknown) Urine pH 5.0 (units (unknown) date) unknown) (unknown) (no (unknown) (unknown) Ventricular (units (un known) date) bigeminy unknown) (unknown) (no (unknown) (unknown) Vital Signs (units (un known) date) unknown) (unknown) (no (unknown) (unknown) WBC (units (unkno wn) date) unknown) (unknown) (no (unknown) (unknown) WBC (units (unkno wn) date) unknown) (unknown) (no (unknown) (unknown) WBC 7.4 (units (unkno wn) date) unknown) (unknown) (no (unknown) (unknown) [Embedded Image (units (unknown) date) Not Available] unknown) (unknown) (no (unknown) (unknown) [[id number] (units (unknown) date) REDUCTASE unknown) (unknown) (no (unknown) (unknown) [SULFA (units (unkno wn) date) (SULFONAMIDE unknown) (unknown) (no (unknown) (unknown) acetaminophen 300 (units (unknown) date) mg-codeine 30 mg 1 unknown) tab PO Q6HR PRN 10/08/21 10/08/21 History (unknown) (no (unknown) (unknown) acetaminophen 325 (units (unknown) date) mg tablet 650 mg PO unknown) Q6H PRN #60 tab 11/06/20 10/08/21 Rx (unknown) (no (unknown) (unknown) albuterol sulfate (units (unknown) date) 1.25 mg/3 mL 2.5 mg unknown) (6 mL) INHALATION QID #90 ml 11/28/21 Rx (unknown) (no (unknown) (unknown) alcohol intake (units (unknown) date) current unknown) (unknown) (no (unknown) (unknown) alcohol intake (units (unknown) date) frequency unknown) holiday/special occasion (unknown) (no (unknown) (unknown) and tremulousness. (units (unknown) date) unknown) (unknown) (no (unknown) (unknown) benzonatate 100 mg (units (unknown) date) capsule 100 mg PO unknown) TID PRN #14 cap 03/05/21 10/08/21 Rx (unknown) (no (unknown) (unknown) buprenorphine (units ( unknown) date) [BUPRENORPHINE] unknown) AdvReac Mild NAUSEA, Verified 11/28/21 15:33 (unknown) (no (unknown) (unknown) cefdinir 300 mg (units (unknown) date) capsule 300 mg PO unknown) BID #20 cap 10/09/21 Rx (unknown) (no (unknown) (unknown) celecoxib (units (unkn own) date) [CELECOXIB] Allergy unknown) Mild SWELLING Verified 11/28/21 15:33 (unknown) (no (unknown) (unknown) cetirizine 10 mg (units (unknown) date) capsule (Zyrtec) 10 unknown) mg PO DAILY 05/22/19 10/08/21 History (unknown) (no (unknown) (unknown) chronic low back (units (unknown) date) pain who presented unknown) after a fall. (unknown) (no (unknown) (unknown) clonidine HCl 0.1 (units (unknown) date) mg tablet 0.2 mg PO unknown) TID 12/08/21 12/08/21 History (unknown) (no (unknown) (unknown) deformity. Back (units (unknown) date) midline incision unknown) well appearing and well healed. (unknown) (no (unknown) (unknown) diazepam [From (units (unknown) date) Valium] AdvReac unknown) Confusion Verified 11/28/21 15:33 (unknown) (no (unknown) (unknown) diclofenac sodium (units (unknown) date) 1 % topical gel 2 g unknown) TOPICAL QID #100 g 11/19/21 Rx (unknown) (no (unknown) (unknown) equal chest rise (units (unknown) date) bilaterally. unknown) (unknown) (no (unknown) (unknown) ferrous sulfate (units (unknown) date) 325 mg (65 mg 325 unknown) mg PO DAILY 10/19/19 10/08/21 History (unknown) (no (unknown) (unknown) fidgety. (units (unkno wn) date) unknown) (unknown) (no (unknown) (unknown) fluticasone (units (un known) date) propionate 50 1 unknown) spray INTRANASAL DAILY PRN #0 11/02/17 10/08/21 (unknown) (no (unknown) (unknown) for JVD (units (unkno wn) date) unknown) (unknown) (no (unknown) (unknown) furosemide 40 mg (units (unknown) date) tablet (Lasix) 40 unknown) mg PO DAILY 10/08/21 10/08/21 History (unknown) (no (unknown) (unknown) glipizide 2.5 mg (units (unknown) date) tablet, extended unknown) 2.5 mg PO DAILY 10/08/21 10/08/21 History (unknown) (no (unknown) (unknown) household members (units (unknown) date) spouse unknown) (unknown) (no (unknown) (unknown) hyoscyamine (units (un known) date) [HYOSCYAMINE] unknown) AdvReac Mild LEG Verified 11/28/21 15:33 (unknown) (no (unknown) (unknown) iron) (units (unkno wn) date) tablet,delayed unknown) release (unknown) (no (unknown) (unknown) latex [LATEX] (units ( unknown) date) Allergy Mild RASH unknown) Verified 11/28/21 15:33 (unknown) (no (unknown) (unknown) levalbuterol HCl (units (unknown) date) 1.25 mg/3 mL 3 ml unknown) INHALATION Q6H PRN 10/16/18 10/08/21 History (unknown) (no (unknown) (unknown) levalbuterol (units (u nknown) date) tartrate 45 1 puff unknown) INHALATION Q4-6H PRN #15 06/22/18 10/08/21 Rx (unknown) (no (unknown) (unknown) lisinopril 10 mg (units (unknown) date) tablet 10 mg PO unknown) DAILY 12/08/21 12/08/21 History (unknown) (no (unknown) (unknown) mcg/actuation (units ( unknown) date) aerosol inhaler unknown) gram (unknown) (no (unknown) (unknown) mcg/actuation (units ( unknown) date) nasal unknown) (unknown) (no (unknown) (unknown) meclizine 25 mg (units (unknown) date) tablet 25 mg PO QID unknown) PRN #30 tab 10/09/21 Rx (unknown) (no (unknown) (unknown) methocarbamol 500 (units (unknown) date) mg tablet 500 mg PO unknown) Q8H PRN #14 tab 11/19/21 Rx (unknown) (no (unknown) (unknown) metoprolol (units (unk nown) date) tartrate 100 mg unknown) tablet 100 mg PO DAILY 10/16/18 10/08/21 History (unknown) (no (unknown) (unknown) mg tablet (units (unkn own) date) (Percocet) unknown) (unknown) (no (unknown) (unknown) multivitamin (units (u nknown) date) (Multiple Vitamins) unknown) 1 tab PO DAILY #0 12/20/16 10/08/21 History (unknown) (no (unknown) (unknown) oxycodone 5 mg (units (unknown) date) tablet 10 mg PO unknown) Q4-5H PRN #60 tab 11/06/20 10/08/21 Rx (unknown) (no (unknown) (unknown) oxycodone-acetamin (units (unknown) date) ophen 5 mg-325 1 unknown) tab PO Q8H PRN #10 tab 11/19/21 Rx (unknown) (no (unknown) (unknown) oxycodone-acetamin (units (unknown) date) ophen 5 mg-325 1 unknown) tab PO TID PRN #10 tab 11/19/21 Rx (unknown) (no (unknown) (unknown) petechiae.? (units (un known) date) unknown) (unknown) (no (unknown) (unknown) pharynx is clear (units (unknown) date) and mucous unknown) membranes are moist. (unknown) (no (unknown) (unknown) prednisone 20 mg (units (unknown) date) tablet 20 mg PO unknown) DAILY #32 tab 11/28/21 Rx (unknown) (no (unknown) (unknown) prednisone 50 mg (units (unknown) date) tablet 50 mg PO unknown) DAILY #5 tab 11/19/21 Rx (unknown) (no (unknown) (unknown) release 24 hr (units ( unknown) date) (Glucotrol XL) unknown) (unknown) (no (unknown) (unknown) solution for (units (u nknown) date) nebulization unknown) (unknown) (no (unknown) (unknown) spray,suspension (units (unknown) date) unknown) (unknown) (no (unknown) (unknown) stated. (units (unkno wn) date) unknown) (unknown) (no (unknown) (unknown) tablet (units (unkno wn) date) unknown) (unknown) (no (unknown) (unknown) today; this time (units (unknown) date) is exclusive of unknown) procedural time. (unknown) (no (unknown) (unknown) trazodone 100 mg (units (unknown) date) tablet 400 tab PO unknown) BEDTIME 12/09/17 10/08/21 History (unknown) (no (unknown) (unknown) varenicline (units (un known) date) [VARENICLINE] unknown) AdvReac Severe Paranoia Verified 11/28/21 15:33 Result panel 45 (unknown) (no (unknown) (unknown) (no value) (units (unk nown) date) unknown) (unknown) (no (unknown) (unknown) (no value) (units (unk nown) date) unknown) (unknown) (no (unknown) (unknown) Date of Service: (units (unknown) date) 12/08/21 unknown) (unknown) (no (unknown) (unknown) (no value) (units (unk nown) date) unknown) (unknown) (no (unknown) (unknown) - (units (unkno wn) date) unknown) (unknown) (no (unknown) (unknown) 12/07/21 23:05 (units (unknown) date) unknown) (unknown) (no (unknown) (unknown) ANXIETY, (units (unkno wn) date) unknown) (unknown) (no (unknown) (unknown) Allergies (units (unkn own) date) unknown) (unknown) (no (unknown) (unknown) DIZZINESS (units (unkn own) date) unknown) (unknown) (no (unknown) (unknown) EXPOSURE (units (unkno wn) date) unknown) (unknown) (no (unknown) (unknown) History + Physical (units (unknown) date) Report unknown) (unknown) (no (unknown) (unknown) Home Medications (units (unknown) date) unknown) (unknown) (no (unknown) (unknown) [facility] (units (unknown) date) [address] unknown) [place] [address] (unknown) (no (unknown) (unknown) JERKING, (units (unkno wn) date) unknown) (unknown) (no (unknown) (unknown) Laboratory Results (units (unknown) date) - last 24 hr unknown) (unknown) (no (unknown) (unknown) MINUTES (units (unkno wn) date) unknown) (unknown) (no (unknown) (unknown) NAUSEA W/I (units (unk nown) date) unknown) (unknown) (no (unknown) (unknown) W/EXTENDED (units (unk nown) date) unknown) (unknown) (no (unknown) (unknown) (no value) (units (unk nown) date) unknown) (unknown) (no (unknown) (unknown) 12/07/21 12/07/21 (units (unknown) date) 12/07/21 unknown) (unknown) (no (unknown) (unknown) 12/07/21 12/08/21 (units (unknown) date) unknown) (unknown) (no (unknown) (unknown) 23:05 23:05 23:05 (units (unknown) date) unknown) (unknown) (no (unknown) (unknown) 23:05 23:44 23:57 (units (unknown) date) unknown) (unknown) (no (unknown) (unknown) 23:57 01:33 (units (un known) date) unknown) (unknown) (no (unknown) (unknown) 12/08/21 (units (unkno wn) date) unknown) (unknown) (no (unknown) (unknown) Medication (units (unk nown) date) Instructions unknown) Recorded Confirmed Type (unknown) (no (unknown) (unknown) (Athenol) (units (unkn own) date) unknown) (unknown) (no (unknown) (unknown) (Tessalon Perles) (units (unknown) date) unknown) (unknown) (no (unknown) (unknown) (Xopenex HFA) (units ( unknown) date) unknown) (unknown) (no (unknown) (unknown) (past 8 hours): (units (unknown) date) unknown) (unknown) (no (unknown) (unknown) [id number] (units (unkn own) date) unknown) (unknown) (no (unknown) (unknown) 06:32 12/08/21 (units (unknown) date) unknown) (unknown) (no (unknown) (unknown) 06:33 12/08/21 (units (unknown) date) unknown) (unknown) (no (unknown) (unknown) 07:00 (units (unkno wn) date) unknown) (unknown) (no (unknown) (unknown) 07:18 12/08/21 (units (unknown) date) unknown) (unknown) (no (unknown) (unknown) 07:26 12/08/21 (units (unknown) date) unknown) (unknown) (no (unknown) (unknown) 07:30 (units (unkno wn) date) unknown) (unknown) (no (unknown) (unknown) 07:42 12/08/21 (units (unknown) date) unknown) (unknown) (no (unknown) (unknown) 07:49 12/08/21 (units (unknown) date) unknown) (unknown) (no (unknown) (unknown) 07:50 (units (unkno wn) date) unknown) (unknown) (no (unknown) (unknown) 08:00 12/08/21 (units (unknown) date) unknown) (unknown) (no (unknown) (unknown) 08:11 12/08/21 (units (unknown) date) unknown) (unknown) (no (unknown) (unknown) 08:30 (units (unkno wn) date) unknown) (unknown) (no (unknown) (unknown) 08:45 12/08/21 (units (unknown) date) unknown) (unknown) (no (unknown) (unknown) 08:49 12/08/21 (units (unknown) date) unknown) (unknown) (no (unknown) (unknown) 09:00 (units (unkno wn) date) unknown) (unknown) (no (unknown) (unknown) 09:30 12/08/21 (units (unknown) date) unknown) (unknown) (no (unknown) (unknown) 1. alcohol (units (unk nown) date) withdrawal unknown) (unknown) (no (unknown) (unknown) 10:00 12/08/21 (units (unknown) date) unknown) (unknown) (no (unknown) (unknown) 10:30 (units (unkno wn) date) unknown) (unknown) (no (unknown) (unknown) 10:51 12/08/21 (units (unknown) date) unknown) (unknown) (no (unknown) (unknown) 11:00 12/08/21 (units (unknown) date) unknown) (unknown) (no (unknown) (unknown) 11:11 (units (unkno wn) date) unknown) (unknown) (no (unknown) (unknown) 11:21 (units (unkno wn) date) unknown) (unknown) (no (unknown) (unknown) 2. ground level (units (unknown) date) fall unknown) (unknown) (no (unknown) (unknown) 3. (units (unkno wn) date) unknown) (unknown) (no (unknown) (unknown) 76-year-old male (units (unknown) date) former smoker with unknown) heavy alcohol abuse today and history of (unknown) (no (unknown) (unknown) ALT (units (unkno wn) date) unknown) (unknown) (no (unknown) (unknown) ALT (units (unkno wn) date) unknown) (unknown) (no (unknown) (unknown) ALT 31 (units (unkno wn) date) unknown) (unknown) (no (unknown) (unknown) ANTIBIOTICS)] (units ( unknown) date) unknown) (unknown) (no (unknown) (unknown) AST (units (unkno wn) date) unknown) (unknown) (no (unknown) (unknown) AST (units (unkno wn) date) unknown) (unknown) (no (unknown) (unknown) AST 32 (units (unkno wn) date) unknown) (unknown) (no (unknown) (unknown) Abdomen: S NT ND. (units (unknown) date) unknown) (unknown) (no (unknown) (unknown) Acetaminophen (units ( unknown) date) unknown) (unknown) (no (unknown) (unknown) Acetaminophen (units ( unknown) date) unknown) (unknown) (no (unknown) (unknown) Acetaminophen < (units (unknown) date) 10 unknown) (unknown) (no (unknown) (unknown) Achalasia (units (unkn own) date) unknown) (unknown) (no (unknown) (unknown) Age/Sex: 76 / M (units (unknown) date) unknown) (unknown) (no (unknown) (unknown) Albumin (units (unkno wn) date) unknown) (unknown) (no (unknown) (unknown) Albumin (units (unkno wn) date) unknown) (unknown) (no (unknown) (unknown) Albumin 4.1 (units ( unknown) date) unknown) (unknown) (no (unknown) (unknown) Albumin/Globulin (units (unknown) date) Ratio unknown) (unknown) (no (unknown) (unknown) Albumin/Globulin (units (unknown) date) Ratio unknown) (unknown) (no (unknown) (unknown) Albumin/Globulin (units (unknown) date) Ratio 1.4 unknown) (unknown) (no (unknown) (unknown) Alkaline (units (unkno wn) date) Phosphatase unknown) (unknown) (no (unknown) (unknown) Alkaline (units (unkno wn) date) Phosphatase unknown) (unknown) (no (unknown) (unknown) Alkaline (units (unkno wn) date) Phosphatase 64 unknown) (unknown) (no (unknown) (unknown) All other systems (units (unknown) date) reviewed with the unknown) patient and are negative unless otherwise (unknown) (no (unknown) (unknown) Allergy/AdvReac (units (unknown) date) Type Severity unknown) Reaction Status Date / Time (unknown) (no (unknown) (unknown) Anginal pain (units (u nknown) date) unknown) (unknown) (no (unknown) (unknown) Antibiotics) (units (u nknown) date) unknown) (unknown) (no (unknown) (unknown) Assessment + Plan (units (unknown) date) unknown) (unknown) (no (unknown) (unknown) Assessment + Plan (units (unknown) date) narrative: unknown) (unknown) (no (unknown) (unknown) Asthma (units (unkno wn) date) unknown) (unknown) (no (unknown) (unknown) Atrial (units (unkno wn) date) fibrillation unknown) (unknown) (no (unknown) (unknown) BUN (units (unkno wn) date) unknown) (unknown) (no (unknown) (unknown) BUN (units (unkno wn) date) unknown) (unknown) (no (unknown) (unknown) BUN 21 H (units (unk nown) date) unknown) (unknown) (no (unknown) (unknown) BUN/Creatinine (units (unknown) date) Ratio unknown) (unknown) (no (unknown) (unknown) BUN/Creatinine (units (unknown) date) Ratio unknown) (unknown) (no (unknown) (unknown) BUN/Creatinine (units (unknown) date) Ratio 23.9 H unknown) (unknown) (no (unknown) (unknown) Baso # (Auto) (units ( unknown) date) unknown) (unknown) (no (unknown) (unknown) Baso # (Auto) (units ( unknown) date) unknown) (unknown) (no (unknown) (unknown) Baso # (Auto) 100 (units (unknown) date) unknown) (unknown) (no (unknown) (unknown) Baso % (Auto) (units ( unknown) date) unknown) (unknown) (no (unknown) (unknown) Baso % (Auto) (units ( unknown) date) unknown) (unknown) (no (unknown) (unknown) Baso % (Auto) 0.8 (units (unknown) date) unknown) (unknown) (no (unknown) (unknown) Been Physically (units (unknown) date) Hurt or No unknown) (unknown) (no (unknown) (unknown) Blood Pressure (units (unknown) date) unknown) (unknown) (no (unknown) (unknown) Blood Pressure (units (unknown) date) 194/102 H 228/109 H unknown) (unknown) (no (unknown) (unknown) Blood Pressure (units (unknown) date) 212/100 H unknown) (unknown) (no (unknown) (unknown) Blood Pressure (units (unknown) date) 219/95 H unknown) (unknown) (no (unknown) (unknown) Blood Pressure (units (unknown) date) 168/76 H unknown) (unknown) (no (unknown) (unknown) Blood Pressure (units (unknown) date) 180/93 H 220/99 H unknown) 208/99 H (unknown) (no (unknown) (unknown) Blood Pressure (units (unknown) date) 205/73 H 133/65 unknown) 178/84 H (unknown) (no (unknown) (unknown) Blood Pressure (units (unknown) date) 212/99 H 201/96 H unknown) (unknown) (no (unknown) (unknown) COPD (chronic (units ( unknown) date) obstructive unknown) pulmonary disease) (unknown) (no (unknown) (unknown) Calcium (units (unkno wn) date) unknown) (unknown) (no (unknown) (unknown) Calcium (units (unkno wn) date) unknown) (unknown) (no (unknown) (unknown) Calcium 8.4 (units ( unknown) date) unknown) (unknown) (no (unknown) (unknown) Carbon Dioxide (units (unknown) date) unknown) (unknown) (no (unknown) (unknown) Carbon Dioxide (units (unknown) date) unknown) (unknown) (no (unknown) (unknown) Carbon Dioxide (units (unknown) date) 27 unknown) (unknown) (no (unknown) (unknown) Cardio:?RRR no (units (unknown) date) m/r/g. unknown) (unknown) (no (unknown) (unknown) Cervical spinal (units (unknown) date) stenosis unknown) (unknown) (no (unknown) (unknown) Chest:? Normal AP (units (unknown) date) diameter and unknown) contour without kyphoscoliosis, no tachypnea, (unknown) (no (unknown) (unknown) Chief complaint: (units (unknown) date) Back Pain unknown) (unknown) (no (unknown) (unknown) Chloride (units (unkno wn) date) unknown) (unknown) (no (unknown) (unknown) Chloride (units (unkno wn) date) unknown) (unknown) (no (unknown) (unknown) Chloride 104 (units (unknown) date) unknown) (unknown) (no (unknown) (unknown) 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 (10/22/16) (unknown) (no (unknown) (unknown) Coronary artery (units (unknown) date) disease unknown) (unknown) (no (unknown) (unknown) Creatinine (units (unk nown) date) unknown) (unknown) (no (unknown) (unknown) Creatinine (units (unk nown) date) unknown) (unknown) (no (unknown) (unknown) Creatinine 0.88 (units (unknown) date) unknown) (unknown) (no (unknown) (unknown) Critical Care (units ( unknown) date) time: unknown) (unknown) (no (unknown) (unknown) : 1945 (units (unknown) date) Acct:[id number] unknown) (unknown) (no (unknown) (unknown) Date Patient Seen: (units (unknown) date) 12/08/21 unknown) (unknown) (no (unknown) (unknown) Environment (units (un known) date) unknown) (unknown) (no (unknown) (unknown) Eos # (Auto) (units (u nknown) date) unknown) (unknown) (no (unknown) (unknown) Eos # (Auto) (units (u nknown) date) unknown) (unknown) (no (unknown) (unknown) Eos # (Auto) 100 (units (unknown) date) unknown) (unknown) (no (unknown) (unknown) Eos % (Auto) (units (u nknown) date) unknown) (unknown) (no (unknown) (unknown) Eos % (Auto) (units (u nknown) date) unknown) (unknown) (no (unknown) (unknown) Eos % (Auto) 2.0 (units (unknown) date) unknown) (unknown) (no (unknown) (unknown) Estimated GFR (units ( unknown) date) unknown) (unknown) (no (unknown) (unknown) Estimated GFR (units ( unknown) date) unknown) (unknown) (no (unknown) (unknown) Estimated GFR > (units (unknown) date) 60 unknown) (unknown) (no (unknown) (unknown) Ethyl Alcohol (units ( unknown) date) unknown) (unknown) (no (unknown) (unknown) Ethyl Alcohol (units ( unknown) date) unknown) (unknown) (no (unknown) (unknown) Ethyl Alcohol (units ( unknown) date) 111 H unknown) (unknown) (no (unknown) (unknown) Exam (units (unkno wn) date) unknown) (unknown) (no (unknown) (unknown) Exam Narrative: (units (unknown) date) unknown) (unknown) (no (unknown) (unknown) Extremities: No (units (unknown) date) edema or joint unknown) effusions. No cyanosis or clubbing. (unknown) (no (unknown) (unknown) Family + Social (units (unknown) date) History unknown) (unknown) (no (unknown) (unknown) Family History (units (unknown) date) (Updated 12/08/21 @ unknown) 13:50 by Aditya Tapia DO) (unknown) (no (unknown) (unknown) Father (units (unkno wn) date) Hypertension unknown) (unknown) (no (unknown) (unknown) Feels Safe in (units ( unknown) date) Current Yes unknown) (unknown) (no (unknown) (unknown) General:? Patient (units (unknown) date) is well developed unknown) and well nourished, Slightly anxious and (unknown) (no (unknown) (unknown) Globulin (units (unkno wn) date) unknown) (unknown) (no (unknown) (unknown) Globulin (units (unkno wn) date) unknown) (unknown) (no (unknown) (unknown) Globulin 2.9 (units (unknown) date) unknown) (unknown) (no (unknown) (unknown) Glucose (units (unkno wn) date) unknown) (unknown) (no (unknown) (unknown) Glucose (units (unkno wn) date) unknown) (unknown) (no (unknown) (unknown) Glucose 124 H (units (unknown) date) unknown) (unknown) (no (unknown) (unknown) H/O arthroscopic (units (unknown) date) knee surgery unknown) (11/14/17) (unknown) (no (unknown) (unknown) HEENT:? (units (unkno wn) date) Normocephalic,small unknown) abrasion to nose, extraocular muscles intact, oral (unknown) (no (unknown) (unknown) Hct (units (unkno wn) date) unknown) (unknown) (no (unknown) (unknown) Hct (units (unkno wn) date) unknown) (unknown) (no (unknown) (unknown) Hct 46.0 (units (unkn own) date) unknown) (unknown) (no (unknown) (unknown) Hgb (units (unkno wn) date) unknown) (unknown) (no (unknown) (unknown) Hgb (units (unkno wn) date) unknown) (unknown) (no (unknown) (unknown) Hgb 15.6 (units (unkn own) date) unknown) (unknown) (no (unknown) (unknown) History (units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 (unknown) levalbuterol (units (u nknown) date) tartrate 45 1 puff unknown) INHALATION Q4-6H PRN #15 06/22/18 10/08/21 Rx (unknown) (no (unknown) (unknown) lisinopril 10 mg (units (unknown) date) tablet 10 mg PO unknown) DAILY 12/08/21 12/08/21 History (unknown) (no (unknown) (unknown) mcg/actuation (units ( unknown) date) aerosol inhaler unknown) gram (unknown) (no (unknown) (unknown) mcg/actuation (units ( unknown) date) nasal unknown) (unknown) (no (unknown) (unknown) meclizine 25 mg (units (unknown) date) tablet 25 mg PO QID unknown) PRN #30 tab 10/09/21 Rx (unknown) (no (unknown) (unknown) methocarbamol 500 (units (unknown) date) mg tablet 500 mg PO unknown) Q8H PRN #14 tab 11/19/21 Rx (unknown) (no (unknown) (unknown) metoprolol (units (unk nown) date) tartrate 100 mg unknown) tablet 100 mg PO DAILY 10/16/18 10/08/21 History (unknown) (no (unknown) (unknown) mg tablet (units (unkn own) date) (Percocet) unknown) (unknown) (no (unknown) (unknown) multivitamin (units (u nknown) date) (Multiple Vitamins) unknown) 1 tab PO DAILY #0 12/20/16 10/08/21 History (unknown) (no (unknown) (unknown) nausea and (units (unk nown) date) vomiting that was unknown) reportedly intractable. (unknown) (no (unknown) (unknown) night when he (units ( unknown) date) stumbled and fell unknown) forward, striking his nose. He denied loss of (unknown) (no (unknown) (unknown) no loss of (units (unk nown) date) consciousness and unknown) he has had no nausea or vomiting.? He denies any (unknown) (no (unknown) (unknown) other injuries (units (unknown) date) such as neck, back unknown) or extremities.? His states that he (unknown) (no (unknown) (unknown) oxycodone 5 mg (units (unknown) date) tablet 10 mg PO unknown) Q4-5H PRN #60 tab 11/06/20 10/08/21 Rx (unknown) (no (unknown) (unknown) oxycodone-acetamin (units (unknown) date) ophen 5 mg-325 1 unknown) tab PO Q8H PRN #10 tab 11/19/21 Rx (unknown) (no (unknown) (unknown) oxycodone-acetamin (units (unknown) date) ophen 5 mg-325 1 unknown) tab PO TID PRN #10 tab 11/19/21 Rx (unknown) (no (unknown) (unknown) petechiae.? (units (un known) date) unknown) (unknown) (no (unknown) (unknown) pharynx is clear (units (unknown) date) and mucous unknown) membranes are moist. (unknown) (no (unknown) (unknown) prednisone 20 mg (units (unknown) date) tablet 20 mg PO unknown) DAILY #32 tab 11/28/21 Rx (unknown) (no (unknown) (unknown) prednisone 50 mg (units (unknown) date) tablet 50 mg PO unknown) DAILY #5 tab 11/19/21 Rx (unknown) (no (unknown) (unknown) release 24 hr (units ( unknown) date) (Glucotrol XL) unknown) (unknown) (no (unknown) (unknown) shortness of (units (u nknown) date) breath. In the unknown) emergency room, the patient was hypertensive, with (unknown) (no (unknown) (unknown) solution for (units (u nknown) date) nebulization unknown) (unknown) (no (unknown) (unknown) spray,suspension (units (unknown) date) unknown) (unknown) (no (unknown) (unknown) stated. (units (unkno wn) date) unknown) (unknown) (no (unknown) (unknown) tablet (units (unkno wn) date) unknown) (unknown) (no (unknown) (unknown) that he would (units ( unknown) date) routinely take.? He unknown) is activated as a modified trauma. (unknown) (no (unknown) (unknown) today; this time (units (unknown) date) is exclusive of unknown) procedural time. (unknown) (no (unknown) (unknown) trazodone 100 mg (units (unknown) date) tablet 400 tab PO unknown) BEDTIME 12/09/17 10/08/21 History (unknown) (no (unknown) (unknown) varenicline (units (un known) date) [VARENICLINE] unknown) AdvReac Severe Paranoia Verified 11/28/21 15:33 Result panel 46 (unknown) (no (unknown) (unknown) (no value) (units (unk nown) date) unknown) (unknown) (no (unknown) (unknown) (no value) (units (unk nown) date) unknown) (unknown) (no (unknown) (unknown) Date of Service: (units (unknown) date) 12/08/21 unknown) (unknown) (no (unknown) (unknown) (no value) (units (unk nown) date) unknown) (unknown) (no (unknown) (unknown) - (units (unkno wn) date) unknown) (unknown) (no (unknown) (unknown) 12/07/21 23:05 (units (unknown) date) unknown) (unknown) (no (unknown) (unknown) ANXIETY, (units (unkno wn) date) unknown) (unknown) (no (unknown) (unknown) Allergies (units (unkn own) date) unknown) (unknown) (no (unknown) (unknown) DIZZINESS (units (unkn own) date) unknown) (unknown) (no (unknown) (unknown) EXPOSURE (units (unkno wn) date) unknown) (unknown) (no (unknown) (unknown) History + Physical (units (unknown) date) Report unknown) (unknown) (no (unknown) (unknown) Home Medications (units (unknown) date) unknown) (unknown) (no (unknown) (unknown) [facility] (units (unknown) date) [address] unknown) [place] [address] (unknown) (no (unknown) (unknown) JERKING, (units (unkno wn) date) unknown) (unknown) (no (unknown) (unknown) Laboratory Results (units (unknown) date) - last 24 hr unknown) (unknown) (no (unknown) (unknown) MINUTES (units (unkno wn) date) unknown) (unknown) (no (unknown) (unknown) NAUSEA W/I (units (unk nown) date) unknown) (unknown) (no (unknown) (unknown) W/EXTENDED (units (unk nown) date) unknown) (unknown) (no (unknown) (unknown) (no value) (units (unk nown) date) unknown) (unknown) (no (unknown) (unknown) 12/07/21 12/07/21 (units (unknown) date) 12/07/21 unknown) (unknown) (no (unknown) (unknown) 12/07/21 12/08/21 (units (unknown) date) unknown) (unknown) (no (unknown) (unknown) 23:05 23:05 23:05 (units (unknown) date) unknown) (unknown) (no (unknown) (unknown) 23:05 23:44 23:57 (units (unknown) date) unknown) (unknown) (no (unknown) (unknown) 23:57 01:33 (units (un known) date) unknown) (unknown) (no (unknown) (unknown) - PT/OT (units (unkno wn) date) evaluations for unknown) chronic difficulty walking. (unknown) (no (unknown) (unknown) - continue CIWA (units (unknown) date) protocol with as unknown) needed ativan (unknown) (no (unknown) (unknown) - continue home (units (unknown) date) medications unknown) (unknown) (no (unknown) (unknown) - continue home (units (unknown) date) trazodone 300 mg at unknown) bedtime with additional 100 mg prn. (unknown) (no (unknown) (unknown) - continue (units (unk nown) date) oxycodone 10 mg unknown) prn. (unknown) (no (unknown) (unknown) - low risk for (units (unknown) date) severe withdrawal unknown) based on reported history. However I suspect (unknown) (no (unknown) (unknown) - monitor for (units ( unknown) date) respiratory unknown) symptoms (unknown) (no (unknown) (unknown) - sinus rhythm on (units (unknown) date) EKG with multiple unknown) PACs. Continue home medications (unknown) (no (unknown) (unknown) - suspect poorly (units (unknown) date) controlled back unknown) pain is leading to his drinking somewhat. (unknown) (no (unknown) (unknown) - suspect some (units (unknown) date) ataxia due to unknown) chronic alcohol use. Will get PT/OT evaluations (unknown) (no (unknown) (unknown) 12/08/21 (units (unkno wn) date) unknown) (unknown) (no (unknown) (unknown) Medication (units (unk nown) date) Instructions unknown) Recorded Confirmed Type (unknown) (no (unknown) (unknown) Surrogate decision (units (unknown) date) maker is in unknown) patient?s record [If Yes, STOP here]: Yes (unknown) (no (unknown) (unknown) is admitted for (units (unknown) date) development of unknown) alcohol withdrawal. (unknown) (no (unknown) (unknown) (Athenol) (units (unkn own) date) unknown) (unknown) (no (unknown) (unknown) (Tessalon Perles) (units (unknown) date) unknown) (unknown) (no (unknown) (unknown) (Xopenex HFA) (units ( unknown) date) unknown) (unknown) (no (unknown) (unknown) (past 8 hours): (units (unknown) date) unknown) (unknown) (no (unknown) (unknown) [phone] (units (unkn own) date) unknown) (unknown) (no (unknown) (unknown) 06:32 12/08/21 (units (unknown) date) unknown) (unknown) (no (unknown) (unknown) 06:33 12/08/21 (units (unknown) date) unknown) (unknown) (no (unknown) (unknown) 07:00 (units (unkno wn) date) unknown) (unknown) (no (unknown) (unknown) 07:18 12/08/21 (units (unknown) date) unknown) (unknown) (no (unknown) (unknown) 07:26 12/08/21 (units (unknown) date) unknown) (unknown) (no (unknown) (unknown) 07:30 (units (unkno wn) date) unknown) (unknown) (no (unknown) (unknown) 07:42 12/08/21 (units (unknown) date) unknown) (unknown) (no (unknown) (unknown) 07:49 12/08/21 (units (unknown) date) unknown) (unknown) (no (unknown) (unknown) 07:50 (units (unkno wn) date) unknown) (unknown) (no (unknown) (unknown) 08:00 12/08/21 (units (unknown) date) unknown) (unknown) (no (unknown) (unknown) 08:11 12/08/21 (units (unknown) date) unknown) (unknown) (no (unknown) (unknown) 08:30 (units (unkno wn) date) unknown) (unknown) (no (unknown) (unknown) 08:45 12/08/21 (units (unknown) date) unknown) (unknown) (no (unknown) (unknown) 08:49 12/08/21 (units (unknown) date) unknown) (unknown) (no (unknown) (unknown) 09:00 (units (unkno wn) date) unknown) (unknown) (no (unknown) (unknown) 09:30 12/08/21 (units (unknown) date) unknown) (unknown) (no (unknown) (unknown) 1. alcohol (units (unk nown) date) withdrawal unknown) (unknown) (no (unknown) (unknown) 10:00 12/08/21 (units (unknown) date) unknown) (unknown) (no (unknown) (unknown) 10:30 (units (unkno wn) date) unknown) (unknown) (no (unknown) (unknown) 10:51 12/08/21 (units (unknown) date) unknown) (unknown) (no (unknown) (unknown) 11:00 12/08/21 (units (unknown) date) unknown) (unknown) (no (unknown) (unknown) 11:11 (units (unkno wn) date) unknown) (unknown) (no (unknown) (unknown) 11:21 (units (unkno wn) date) unknown) (unknown) (no (unknown) (unknown) 2. ground level (units (unknown) date) fall unknown) (unknown) (no (unknown) (unknown) 3. Paroxysmal (units ( unknown) date) atrial fibrillation unknown) (unknown) (no (unknown) (unknown) 4. History of CAD (units (unknown) date) and prior unknown) dissection (unknown) (no (unknown) (unknown) 5. Chronic low (units (unknown) date) back pain unknown) (unknown) (no (unknown) (unknown) 6. Insomnia (units (un known) date) unknown) (unknown) (no (unknown) (unknown) ALT (units (unkno wn) date) unknown) (unknown) (no (unknown) (unknown) ALT (units (unkno wn) date) unknown) (unknown) (no (unknown) (unknown) ALT 31 (units (unkno wn) date) unknown) (unknown) (no (unknown) (unknown) ANTIBIOTICS)] (units ( unknown) date) unknown) (unknown) (no (unknown) (unknown) AST (units (unkno wn) date) unknown) (unknown) (no (unknown) (unknown) AST (units (unkno wn) date) unknown) (unknown) (no (unknown) (unknown) AST 32 (units (unkno wn) date) unknown) (unknown) (no (unknown) (unknown) Abdomen: S NT ND. (units (unknown) date) unknown) (unknown) (no (unknown) (unknown) Acetaminophen (units ( unknown) date) unknown) (unknown) (no (unknown) (unknown) Acetaminophen (units ( unknown) date) unknown) (unknown) (no (unknown) (unknown) Acetaminophen < (units (unknown) date) 10 unknown) (unknown) (no (unknown) (unknown) Achalasia (units (unkn own) date) unknown) (unknown) (no (unknown) (unknown) Age/Sex: 76 / M (units (unknown) date) unknown) (unknown) (no (unknown) (unknown) Albumin (units (unkno wn) date) unknown) (unknown) (no (unknown) (unknown) Albumin (units (unkno wn) date) unknown) (unknown) (no (unknown) (unknown) Albumin 4.1 (units ( unknown) date) unknown) (unknown) (no (unknown) (unknown) Albumin/Globulin (units (unknown) date) Ratio unknown) (unknown) (no (unknown) (unknown) Albumin/Globulin (units (unknown) date) Ratio unknown) (unknown) (no (unknown) (unknown) Albumin/Globulin (units (unknown) date) Ratio 1.4 unknown) (unknown) (no (unknown) (unknown) Alkaline (units (unkno wn) date) Phosphatase unknown) (unknown) (no (unknown) (unknown) Alkaline (units (unkno wn) date) Phosphatase unknown) (unknown) (no (unknown) (unknown) Alkaline (units (unkno wn) date) Phosphatase 64 unknown) (unknown) (no (unknown) (unknown) All other systems (units (unknown) date) reviewed with the unknown) patient and are negative unless otherwise (unknown) (no (unknown) (unknown) Allergy/AdvReac (units (unknown) date) Type Severity unknown) Reaction Status Date / Time (unknown) (no (unknown) (unknown) Anginal pain (units (u nknown) date) unknown) (unknown) (no (unknown) (unknown) Antibiotics) (units (u nknown) date) unknown) (unknown) (no (unknown) (unknown) Assessment + Plan (units (unknown) date) unknown) (unknown) (no (unknown) (unknown) Assessment + Plan (units (unknown) date) narrative: unknown) (unknown) (no (unknown) (unknown) Asthma (units (unkno wn) date) unknown) (unknown) (no (unknown) (unknown) Atrial (units (unkno wn) date) fibrillation unknown) (unknown) (no (unknown) (unknown) BUN (units (unkno wn) date) unknown) (unknown) (no (unknown) (unknown) BUN (units (unkno wn) date) unknown) (unknown) (no (unknown) (unknown) BUN 21 H (units (unk nown) date) unknown) (unknown) (no (unknown) (unknown) BUN/Creatinine (units (unknown) date) Ratio unknown) (unknown) (no (unknown) (unknown) BUN/Creatinine (units (unknown) date) Ratio unknown) (unknown) (no (unknown) (unknown) BUN/Creatinine (units (unknown) date) Ratio 23.9 H unknown) (unknown) (no (unknown) (unknown) Baso # (Auto) (units ( unknown) date) unknown) (unknown) (no (unknown) (unknown) Baso # (Auto) (units ( unknown) date) unknown) (unknown) (no (unknown) (unknown) Baso # (Auto) 100 (units (unknown) date) unknown) (unknown) (no (unknown) (unknown) Baso % (Auto) (units ( unknown) date) unknown) (unknown) (no (unknown) (unknown) Baso % (Auto) (units ( unknown) date) unknown) (unknown) (no (unknown) (unknown) Baso % (Auto) 0.8 (units (unknown) date) unknown) (unknown) (no (unknown) (unknown) Been Physically (units (unknown) date) Hurt or No unknown) (unknown) (no (unknown) (unknown) Blood Pressure (units (unknown) date) unknown) (unknown) (no (unknown) (unknown) Blood Pressure (units (unknown) date) 194/102 H 228/109 H unknown) (unknown) (no (unknown) (unknown) Blood Pressure (units (unknown) date) 212/100 H unknown) (unknown) (no (unknown) (unknown) Blood Pressure (units (unknown) date) 219/95 H unknown) (unknown) (no (unknown) (unknown) Blood Pressure (units (unknown) date) 168/76 H unknown) (unknown) (no (unknown) (unknown) Blood Pressure (units (unknown) date) 180/93 H 220/99 H unknown) 208/99 H (unknown) (no (unknown) (unknown) Blood Pressure (units (unknown) date) 205/73 H 133/65 unknown) 178/84 H (unknown) (no (unknown) (unknown) Blood Pressure (units (unknown) date) 212/99 H 201/96 H unknown) (unknown) (no (unknown) (unknown) COPD (chronic (units ( unknown) date) obstructive unknown) pulmonary disease) (unknown) (no (unknown) (unknown) Calcium (units (unkno wn) date) unknown) (unknown) (no (unknown) (unknown) Calcium (units (unkno wn) date) unknown) (unknown) (no (unknown) (unknown) Calcium 8.4 (units ( unknown) date) unknown) (unknown) (no (unknown) (unknown) Carbon Dioxide (units (unknown) date) unknown) (unknown) (no (unknown) (unknown) Carbon Dioxide (units (unknown) date) unknown) (unknown) (no (unknown) (unknown) Carbon Dioxide (units (unknown) date) 27 unknown) (unknown) (no (unknown) (unknown) Cardio:?RRR no (units (unknown) date) m/r/g. unknown) (unknown) (no (unknown) (unknown) Cervical spinal (units (unknown) date) stenosis unknown) (unknown) (no (unknown) (unknown) Chest:? Normal AP (units (unknown) date) diameter and unknown) contour without kyphoscoliosis, no tachypnea, (unknown) (no (unknown) (unknown) Chief complaint: (units (unknown) date) Back Pain unknown) (unknown) (no (unknown) (unknown) Chloride (units (unkno wn) date) unknown) (unknown) (no (unknown) (unknown) Chloride (units (unkno wn) date) unknown) (unknown) (no (unknown) (unknown) Chloride 104 (units (unknown) date) unknown) (unknown) (no (unknown) (unknown) 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 (10/22/16) (unknown) (no (unknown) (unknown) Code: Full as (units (unknown) date) discussed with the unknown) patient, surrogate decision maker is the (unknown) (no (unknown) (unknown) Coronary artery (units (unknown) date) disease unknown) (unknown) (no (unknown) (unknown) Creatinine (units (unk nown) date) unknown) (unknown) (no (unknown) (unknown) Creatinine (units (unk nown) date) unknown) (unknown) (no (unknown) (unknown) Creatinine 0.88 (units (unknown) date) unknown) (unknown) (no (unknown) (unknown) Critical Care (units ( unknown) date) time: unknown) (unknown) (no (unknown) (unknown) : 1945 (units (unknown) date) Acct:[id number] unknown) (unknown) (no (unknown) (unknown) Date Patient Seen: (units (unknown) date) 12/08/21 unknown) (unknown) (no (unknown) (unknown) ECG (units (unkno wn) date) unknown) (unknown) (no (unknown) (unknown) Environment (units (un known) date) unknown) (unknown) (no (unknown) (unknown) Eos # (Auto) (units (u nknown) date) unknown) (unknown) (no (unknown) (unknown) Eos # (Auto) (units (u nknown) date) unknown) (unknown) (no (unknown) (unknown) Eos # (Auto) 100 (units (unknown) date) unknown) (unknown) (no (unknown) (unknown) Eos % (Auto) (units (u nknown) date) unknown) (unknown) (no (unknown) (unknown) Eos % (Auto) (units (u nknown) date) unknown) (unknown) (no (unknown) (unknown) Eos % (Auto) 2.0 (units (unknown) date) unknown) (unknown) (no (unknown) (unknown) Estimated GFR (units ( unknown) date) unknown) (unknown) (no (unknown) (unknown) Estimated GFR (units ( unknown) date) unknown) (unknown) (no (unknown) (unknown) Estimated GFR > (units (unknown) date) 60 unknown) (unknown) (no (unknown) (unknown) Ethyl Alcohol (units ( unknown) date) unknown) (unknown) (no (unknown) (unknown) Ethyl Alcohol (units ( unknown) date) unknown) (unknown) (no (unknown) (unknown) Ethyl Alcohol (units ( unknown) date) 111 H unknown) (unknown) (no (unknown) (unknown) Exam (units (unkno wn) date) unknown) (unknown) (no (unknown) (unknown) Exam Narrative: (units (unknown) date) unknown) (unknown) (no (unknown) (unknown) Extremities: No (units (unknown) date) edema or joint unknown) effusions. No cyanosis or clubbing. (unknown) (no (unknown) (unknown) Family + Social (units (unknown) date) History unknown) (unknown) (no (unknown) (unknown) Family History (units (unknown) date) (Updated 12/08/21 @ unknown) 13:50 by Aditya Tapia DO) (unknown) (no (unknown) (unknown) Father (units (unkno wn) date) Hypertension unknown) (unknown) (no (unknown) (unknown) Feels Safe in (units ( unknown) date) Current Yes unknown) (unknown) (no (unknown) (unknown) General:? Patient (units (unknown) date) is well developed unknown) and well nourished, Slightly anxious and (unknown) (no (unknown) (unknown) Globulin (units (unkno wn) date) unknown) (unknown) (no (unknown) (unknown) Globulin (units (unkno wn) date) unknown) (unknown) (no (unknown) (unknown) Globulin 2.9 (units (unknown) date) unknown) (unknown) (no (unknown) (unknown) Glucose (units (unkno wn) date) unknown) (unknown) (no (unknown) (unknown) Glucose (units (unkno wn) date) unknown) (unknown) (no (unknown) (unknown) Glucose 124 H (units (unknown) date) unknown) (unknown) (no (unknown) (unknown) H/O arthroscopic (units (unknown) date) knee surgery unknown) (11/14/17) (unknown) (no (unknown) (unknown) HEENT:? (units (unkno wn) date) Normocephalic,small unknown) abrasion to nose, extraocular muscles intact, oral (unknown) (no (unknown) (unknown) Hct (units (unkno wn) date) unknown) (unknown) (no (unknown) (unknown) Hct (units (unkno wn) date) unknown) (unknown) (no (unknown) (unknown) Hct 46.0 (units (unkn own) date) unknown) (unknown) (no (unknown) (unknown) Hgb (units (unkno wn) date) unknown) (unknown) (no (unknown) (unknown) Hgb (units (unkno wn) date) unknown) (unknown) (no (unknown) (unknown) Hgb 15.6 (units (unkn own) date) unknown) (unknown) (no (unknown) (unknown) History (units (unkno wn) date) unknown) (unknown) (no (unknown) (unknown) History of Present (units (unknown) date) Illness unknown) (unknown) (no (unknown) (unknown) History of aortic (units (unknown) date) dissection unknown) () (unknown) (no (unknown) (unknown) History of (units (unk nown) date) arthroplasty of unknown) right knee (unknown) (no (unknown) (unknown) 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 (unknown) (no (unknown) (unknown) History of cardiac (units (unknown) date) cath () unknown) (unknown) (no (unknown) (unknown) History of (units (unk nown) date) esophageal surgery unknown) (unknown) (no (unknown) (unknown) History of (units (unk nown) date) incision and unknown) drainage (-2016) (unknown) (no (unknown) (unknown) History of prior (units (unknown) date) ablation treatment unknown) () (unknown) (no (unknown) (unknown) History of surgery (units (unknown) date) unknown) (unknown) (no (unknown) (unknown) Home Medications (units (unknown) date) and Allergies unknown) (unknown) (no (unknown) (unknown) Hx of (units (unkno wn) date) cholecystectomy unknown) (unknown) (no (unknown) (unknown) Hx of hernia (units (u nknown) date) repair unknown) (unknown) (no (unknown) (unknown) Hx of sinus (units (un known) date) surgery unknown) (unknown) (no (unknown) (unknown) Hypertension (units (u nknown) date) unknown) (unknown) (no (unknown) (unknown) I confirm the (units (u nknown) date) patient?s Advance unknown) Care Plan is present, Code status is documented, (unknown) (no (unknown) (unknown) I have utilized (units (unknown) date) all available unknown) immediate resources to obtain, update, or review (unknown) (no (unknown) (unknown) I spent a total of (units (unknown) date) [] minutes of unknown) critical care time on this patient's care (unknown) (no (unknown) (unknown) INHIBITOR] (units (unk nown) date) unknown) (unknown) (no (unknown) (unknown) Impression: (units (un known) date) unknown) (unknown) (no (unknown) (unknown) In the emergency (units (unknown) date) room, the patient unknown) was given phenobarbital with some improvement (unknown) (no (unknown) (unknown) Inhibitor (units (unkn own) date) MUSCLES unknown) (unknown) (no (unknown) (unknown) Ischemic (units (unkno wn) date) cardiomyopathy unknown) (unknown) (no (unknown) (unknown) Labs (units (unkno wn) date) unknown) (unknown) (no (unknown) (unknown) Labs: (units (unkno wn) date) unknown) (unknown) (no (unknown) (unknown) Lactate (units (unkno wn) date) unknown) (unknown) (no (unknown) (unknown) Lactate 2.3 H (units (unknown) date) unknown) (unknown) (no (unknown) (unknown) Lactate 1.5 (units ( unknown) date) unknown) (unknown) (no (unknown) (unknown) Lungs:? CTA b/l no (units (unknown) date) wheezing rhonchi or unknown) rales. (unknown) (no (unknown) (unknown) Lymph # (Auto) (units (unknown) date) unknown) (unknown) (no (unknown) (unknown) Lymph # (Auto) (units (unknown) date) unknown) (unknown) (no (unknown) (unknown) Lymph # (Auto) (units (unknown) date) 1700 unknown) (unknown) (no (unknown) (unknown) Lymph % (Auto) (units (unknown) date) unknown) (unknown) (no (unknown) (unknown) Lymph % (Auto) (units (unknown) date) unknown) (unknown) (no (unknown) (unknown) Lymph % (Auto) (units (unknown) date) 23.0 L unknown) (unknown) (no (unknown) (unknown) MCH (units (unkno wn) date) unknown) (unknown) (no (unknown) (unknown) MCH (units (unkno wn) date) unknown) (unknown) (no (unknown) (unknown) MCH 31.7 (units (unkn own) date) unknown) (unknown) (no (unknown) (unknown) MCHC (units (unkno wn) date) unknown) (unknown) (no (unknown) (unknown) MCHC (units (unkno wn) date) unknown) (unknown) (no (unknown) (unknown) MCHC 34.0 (units (unk nown) date) unknown) (unknown) (no (unknown) (unknown) MCV (units (unkno wn) date) unknown) (unknown) (no (unknown) (unknown) MCV (units (unkno wn) date) unknown) (unknown) (no (unknown) (unknown) MCV 93.3 (units (unkn own) date) unknown) (unknown) (no (unknown) (unknown) MIPS - Admit (units (u nknown) date) unknown) (unknown) (no (unknown) (unknown) Medical History (units (unknown) date) (Reviewed 12/08/21 unknown) @ 13:50 by Aditya Tapia DO) (unknown) (no (unknown) (unknown) Meds (units (unkno wn) date) unknown) (unknown) (no (unknown) (unknown) [place] # (Auto) (units ( unknown) date) unknown) (unknown) (no (unknown) (unknown) [place] # (Auto) (units ( unknown) date) unknown) (unknown) (no (unknown) (unknown) [place] # (Auto) 700 (units (unknown) date) unknown) (unknown) (no (unknown)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 (unknown) (no (unknown) (unknown) stated. (units (unkno wn) date) unknown) (unknown) (no (unknown) (unknown) tablet (units (unkno wn) date) unknown) (unknown) (no (unknown) (unknown) testing was (units (un known) date) negative. Patient unknown) was admitted for further management of alcohol (unknown) (no (unknown) (unknown) that he had been (units (unknown) date) on clonidine unknown) recently from his PCP. Initial laboratory (unknown) (no (unknown) (unknown) the patient's (units ( unknown) date) current unknown) medications. (unknown) (no (unknown) (unknown) this improved with (units (unknown) date) Ativan that was unknown) given in the emergency room. It also appears (unknown) (no (unknown) (unknown) today; this time (units (unknown) date) is exclusive of unknown) procedural time. (unknown) (no (unknown) (unknown) trazodone 100 mg (units (unknown) date) tablet 400 tab PO unknown) BEDTIME 12/09/17 10/08/21 History (unknown) (no (unknown) (unknown) trazodone and had (units (unknown) date) not slept in 2 days unknown) at home, and this is why he drank (unknown) (no (unknown) (unknown) varenicline (units (un known) date) [VARENICLINE] unknown) AdvReac Severe Paranoia Verified 11/28/21 15:33 (unknown) (no (unknown) (unknown) withdrawal (units (unk nown) date) unknown) (unknown) (no (unknown) (unknown) yesterday evening. (units (unknown) date) unknown) Result panel 47 (unknown) (no date) (unknown) (unknown) (no value) (units (un known) unknown) (unknown) (no date) (unknown) (unknown) NO GROWTH (units (unk nown) AFTER 24 unknown) HOURS Result panel 48 (unknown) (no date) (unknown) (unknown) (no value) (units (un known) unknown) (unknown) (no date) (unknown) (unknown) NO GROWTH (units (unk nown) AFTER 24 unknown) HOURS Result panel 49 (unknown) (no (unknown) (unknown) (no value) (units (unk nown) date) unknown) (unknown) (no (unknown) (unknown) Date of Service: (units (unknown) date) 12/08/21 unknown) (unknown) (no (unknown) (unknown) (no value) (units (unk nown) date) unknown) (unknown) (no (unknown) (unknown) - (units (unkno wn) date) unknown) (unknown) (no (unknown) (unknown) 12/07/21 23:05 (units (unknown) date) unknown) (unknown) (no (unknown) (unknown) [facility] (units (unknown) date) [address] unknown) [place] [address] (unknown) (no (unknown) (unknown) Progress Note (units ( unknown) date) unknown) (unknown) (no (unknown) (unknown) (no value) (units (unk nown) date) unknown) (unknown) (no (unknown) (unknown) 12/09/21 (units (unkno wn) date) unknown) (unknown) (no (unknown) (unknown) is admitted for (units (unknown) date) development of unknown) alcohol withdrawal. (unknown) (no (unknown) (unknown) (past 8 hours): (units (unknown) date) unknown) (unknown) (no (unknown) (unknown) [id number] (units (unkn own) date) unknown) (unknown) (no (unknown) (unknown) 1. alcohol (units (unk nown) date) withdrawal unknown) (unknown) (no (unknown) (unknown) 10:03 12/09/21 (units (unknown) date) unknown) (unknown) (no (unknown) (unknown) 11:00 12/09/21 (units (unknown) date) unknown) (unknown) (no (unknown) (unknown) 12:14 (units (unkno wn) date) unknown) (unknown) (no (unknown) (unknown) 13:47 12/09/21 (units (unknown) date) unknown) (unknown) (no (unknown) (unknown) 15:00 (units (unkno wn) date) unknown) (unknown) (no (unknown) (unknown) 2. ground level (units (unknown) date) fall unknown) (unknown) (no (unknown) (unknown) 3. Paroxysmal (units ( unknown) date) atrial unknown) fibrillation (unknown) (no (unknown) (unknown) 4. History of CAD (units (unknown) date) and prior unknown) dissection (unknown) (no (unknown) (unknown) 5. Chronic low (units (unknown) date) back pain unknown) (unknown) (no (unknown) (unknown) 6. Insomnia (units (un known) date) unknown) (unknown) (no (unknown) (unknown) ?- PT/OT (units (unkno wn) date) evaluations for unknown) chronic difficulty walking. Unsafe discharge today. (unknown) (no (unknown) (unknown) ?- continue CIWA (units (unknown) date) protocol with as unknown) needed ativan (unknown) (no (unknown) (unknown) ?- continue home (units (unknown) date) medications unknown) (unknown) (no (unknown) (unknown) ?- continue home (units (unknown) date) trazodone 300 mg unknown) at bedtime with additional 100 mg prn. (unknown) (no (unknown) (unknown) ?- continue (units (un known) date) oxycodone 10 mg unknown) prn. (unknown) (no (unknown) (unknown) ?- low risk for (units (unknown) date) severe withdrawal unknown) based on reported history. However I suspect (unknown) (no (unknown) (unknown) ?- monitor for (units (unknown) date) respiratory unknown) symptoms (unknown) (no (unknown) (unknown) ?- sinus rhythm (units (unknown) date) on EKG with unknown) multiple PACs. Continue home medications (unknown) (no (unknown) (unknown) ?- suspect poorly (units (unknown) date) controlled back unknown) pain is leading to his drinking somewhat. (unknown) (no (unknown) (unknown) ?- suspect some (units (unknown) date) ataxia due to unknown) chronic alcohol use. appreciate PT/OT. (unknown) (no (unknown) (unknown) Abdomen: S NT ND. (units (unknown) date) unknown) (unknown) (no (unknown) (unknown) Achalasia (units (unkn own) date) unknown) (unknown) (no (unknown) (unknown) Age/Sex: 76 / M (units (unknown) date) unknown) (unknown) (no (unknown) (unknown) Anginal pain (units (u nknown) date) unknown) (unknown) (no (unknown) (unknown) Assessment + Plan (units (unknown) date) unknown) (unknown) (no (unknown) (unknown) Assessment + Plan (units (unknown) date) narrative: unknown) (unknown) (no (unknown) (unknown) Asthma (units (unkno wn) date) unknown) (unknown) (no (unknown) (unknown) Atrial (units (unkno wn) date) fibrillation unknown) (unknown) (no (unknown) (unknown) Blood Pressure (units (unknown) date) 108/59 L unknown) (unknown) (no (unknown) (unknown) Blood Pressure (units (unknown) date) 101/55 L 113/56 L unknown) (unknown) (no (unknown) (unknown) COPD (chronic (units ( unknown) date) obstructive unknown) pulmonary disease) (unknown) (no (unknown) (unknown) Cardio:?RRR no (units (unknown) date) m/r/g. unknown) (unknown) (no (unknown) (unknown) Cervical spinal (units (unknown) date) stenosis unknown) (unknown) (no (unknown) (unknown) Chest:? Normal AP (units (unknown) date) diameter and unknown) contour without kyphoscoliosis, no tachypnea, (unknown) (no (unknown) (unknown) 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 (10/22/16) (unknown) (no (unknown) (unknown) Code:? Full as (units (unknown) date) discussed with the unknown) patient, surrogate decision maker is the (unknown) (no (unknown) (unknown) Coronary artery (units (unknown) date) disease unknown) (unknown) (no (unknown) (unknown) Critical Care (units ( unknown) date) time: unknown) (unknown) (no (unknown) (unknown) : 1945 (units (unknown) date) Acct:[id number] unknown) (unknown) (no (unknown) (unknown) Date Patient (units (u nknown) date) Seen: 12/09/21 unknown) (unknown) (no (unknown) (unknown) Exam (units (unkno wn) date) unknown) (unknown) (no (unknown) (unknown) Exam Narrative: (units (unknown) date) unknown) (unknown) (no (unknown) (unknown) Extremities: No (units (unknown) date) edema or joint unknown) effusions. No cyanosis or clubbing. (unknown) (no (unknown) (unknown) Family History (units (unknown) date) (Updated 12/08/21 unknown) @ 13:50 by Aditya Tapia DO) (unknown) (no (unknown) (unknown) Father (units (unkno wn) date) Hypertension unknown) (unknown) (no (unknown) (unknown) General:? Patient (units (unknown) date) is well developed unknown) and well nourished, agitated when discussion (unknown) (no (unknown) (unknown) H/O arthroscopic (units (unknown) date) knee surgery unknown) (11/14/17) (unknown) (no (unknown) (unknown) HEENT:? (units (unkno wn) date) Normocephalic,smal unknown) l abrasion to nose, extraocular muscles intact, oral (unknown) (no (unknown) (unknown) History of aortic (units (unknown) date) dissection unknown) () (unknown) (no (unknown) (unknown) History of (units (unk nown) date) arthroplasty of unknown) right knee (unknown) (no (unknown) (unknown) History of (units (unk nown) date) bilateral total unknown) hip arthroplasty (unknown) (no (unknown) (unknown) History of (units (unk nown) date) cardiac cath unknown) () (unknown) (no (unknown) (unknown) History of (units (unk nown) date) esophageal surgery unknown) (unknown) (no (unknown) (unknown) History of (units (unk nown) date) incision and unknown) drainage (-2016) (unknown) (no (unknown) (unknown) History of prior (units (unknown) date) ablation treatment unknown) () (unknown) (no (unknown) (unknown) History of (units (unk nown) date) surgery unknown) (unknown) (no (unknown) (unknown) Hx of (units (unkno wn) date) cholecystectomy unknown) (unknown) (no (unknown) (unknown) Hx of hernia (units (u nknown) date) repair unknown) (unknown) (no (unknown) (unknown) Hx of sinus (units (un known) date) surgery unknown) (unknown) (no (unknown) (unknown) Hypertension (units (u nknown) date) unknown) (unknown) (no (unknown) (unknown) I have utilized (units (unknown) date) all available unknown) immediate resources to obtain, update, or review (unknown) (no (unknown) (unknown) I spent a total (units (unknown) date) of [] minutes of unknown) critical care time on this patient's care (unknown) (no (unknown) (unknown) Interval history: (units (unknown) date) unknown) (unknown) (no (unknown) (unknown) Ischemic (units (unkno wn) date) cardiomyopathy unknown) (unknown) (no (unknown) (unknown) Labs (units (unkno wn) date) unknown) (unknown) (no (unknown) (unknown) Lungs:? CTA b/l (units (unknown) date) no wheezing unknown) rhonchi or rales. (unknown) (no (unknown) (unknown) Medical History (units (unknown) date) (Reviewed 12/08/21 unknown) @ 13:50 by Aditya Tapia DO) (unknown) (no (unknown) (unknown) Mother (units (unknown) date) Stroke unknown) (unknown) (no (unknown) (unknown) Musculoskeletal:? (units (unknown) date) Muscle strength unknown) and tone are equal within normal limits, no (unknown) (no (unknown) (unknown) Narcotic (units (unkno wn) date) dependence unknown) (unknown) (no (unknown) (unknown) Narrative (units (unkn own) date) unknown) (unknown) (no (unknown) (unknown) Neck pain, (units (unk nown) date) chronic unknown) (unknown) (no (unknown) (unknown) Neck: supple and (units (unknown) date) symmetric, trachea unknown) is midline, no cervical adenopathy. Negative (unknown) (no (unknown) (unknown) Neuro:? Alert and (units (unknown) date) orientated unknown) x3,?slightly tangential, agitated and (unknown) (no (unknown) (unknown) Objective (units (unkn own) date) unknown) (unknown) (no (unknown) (unknown) Oxygen Delivery (units (unknown) date) Method Room Air unknown) (unknown) (no (unknown) (unknown) Oxygen Flow Rate (units (unknown) date) 0 unknown) (unknown) (no (unknown) (unknown) PFSH (units (unkno wn) date) unknown) (unknown) (no (unknown) (unknown) Patient: (units (unkno wn) date) Dominic Viveros unknown) MR#: [id number] (unknown) (no (unknown) (unknown) Provider: (units (unkn own) date) Aditya Tapia unknown) D.O. (unknown) (no (unknown) (unknown) Pulse Oximetry (units (unknown) date) 96 unknown) (unknown) (no (unknown) (unknown) Pulse Oximetry 95 (units (unknown) date) 96 unknown) (unknown) (no (unknown) (unknown) Pulse Rate 62 77 (units (unknown) date) 78 unknown) (unknown) (no (unknown) (unknown) Pulse Rate 77 77 (units (unknown) date) unknown) (unknown) (no (unknown) (unknown) Respiratory Rate (units (unknown) date) 18 18 unknown) (unknown) (no (unknown) (unknown) Respiratory Rate (units (unknown) date) 20 16 unknown) (unknown) (no (unknown) (unknown) Result Diagrams: (units (unknown) date) unknown) (unknown) (no (unknown) (unknown) S/P CABG x 3 (units (u nknown) date) () unknown) (unknown) (no (unknown) (unknown) S/P cervical (units (u nknown) date) spinal fusion unknown) (unknown) (no (unknown) (unknown) S/P lumbar fusion (units (unknown) date) unknown) (unknown) (no (unknown) (unknown) Signed (units (unkno wn) date) By:<Electronically unknown) signed by Ijeoma OrozcoO.>12/09/21 1658 (unknown) (no (unknown) (unknown) Skin:? Pale,? (units ( unknown) date) Warm to touch,dry unknown) and intact without rashes, ulcerations or (unknown) (no (unknown) (unknown) Smoking Status: (units (unknown) date) Former smoker unknown) (unknown) (no (unknown) (unknown) Social History (units (unknown) date) (Reviewed 12/08/21 unknown) @ 01:57 by Jung Dejesus DO) (unknown) (no (unknown) (unknown) Subjective (units (unk nown) date) unknown) (unknown) (no (unknown) (unknown) Surgical History (units (unknown) date) (Reviewed 12/08/21 unknown) @ 13:50 by Aditya Tapia DO) (unknown) (no (unknown) (unknown) Temperature 98.3 (units (unknown) date) F unknown) (unknown) (no (unknown) (unknown) Temperature 98.4 (units (unknown) date) F unknown) (unknown) (no (unknown) (unknown) This is a 76 year (units (unknown) date) old male with PMH unknown) of afib, CAD, prior aortic dissection, (unknown) (no (unknown) (unknown) This is a (units (unkn own) date) 76-year-old male unknown) admitted with alcohol withdrawl (unknown) (no (unknown) (unknown) Time Spent With (units (unknown) date) Patient unknown) (unknown) (no (unknown) (unknown) Ventricular (units (un known) date) bigeminy unknown) (unknown) (no (unknown) (unknown) Vital Signs (units (un known) date) unknown) (unknown) (no (unknown) (unknown) Will continue to (units (unknown) date) work with PT prior unknown) to discharge home. (unknown) (no (unknown) (unknown) [Embedded Image (units (unknown) date) Not Available] unknown) (unknown) (no (unknown) (unknown) alcohol intake: (units (unknown) date) current unknown) (unknown) (no (unknown) (unknown) chronic low back (units (unknown) date) pain, insomnia, unknown) and alcohol use who presented after a fall.? He (unknown) (no (unknown) (unknown) deformity. Back (units (unknown) date) midline incision unknown) well appearing and well healed. (unknown) (no (unknown) (unknown) demanding/frustra (units (unknown) date) neil. Mild tongue unknown) fasciculations and tremulousness. (unknown) (no (unknown) (unknown) equal chest rise (units (unknown) date) bilaterally. unknown) (unknown) (no (unknown) (unknown) for JVD (units (unkno wn) date) unknown) (unknown) (no (unknown) (unknown) he drinks more (units (unknown) date) than he is unknown) currently stating. He is slightly improved today but (unknown) (no (unknown) (unknown) household (units (unkn own) date) members: spouse unknown) (unknown) (no (unknown) (unknown) needing to (units (unk nown) date) possibly stay in unknown) the hospital. (unknown) (no (unknown) (unknown) patient's (units (unknown) date) unknown) (unknown) (no (unknown) (unknown) petechiae.? (units (un known) date) unknown) (unknown) (no (unknown) (unknown) pharynx is clear (units (unknown) date) and mucous unknown) membranes are moist. (unknown) (no (unknown) (unknown) still with high (units (unknown) date) CIWA scores and unknown) unsteady gait. (unknown) (no (unknown) (unknown) substance use (units ( unknown) date) type: does not unknown) use (unknown) (no (unknown) (unknown) the patient's (units ( unknown) date) current unknown) medications.? (unknown) (no (unknown) (unknown) today; this time (units (unknown) date) is exclusive of unknown) procedural time. Result panel 50 (unknown) (no date) (unknown) (unknown) NO GROWTH (units (unk nown) AFTER 48 unknown) HOURS (unknown) (no date) (unknown) (unknown) (no value) (units (un known) unknown) Result panel 51 (unknown) (no date) (unknown) (unknown) NO GROWTH (units (unk nown) AFTER 48 unknown) HOURS (unknown) (no date) (unknown) (unknown) (no value) (units (un known) unknown) Result panel 52 (unknown) (no date) (unknown) (unknown) 0.8 % (unkn own) (unknown) (no date) (unknown) (unknown) 100 /uL (unkn own) (unknown) (no date) (unknown) (unknown) 11.9 % (unkn own) (unknown) (no date) (unknown) (unknown) 13.3 % (unkn own) (unknown) (no date) (unknown) (unknown) 13.7 g/dL (unkn own) (unknown) (no date) (unknown) (unknown) 1500 /uL (unkn own) (unknown) (no date) (unknown) (unknown) 188 X10 3/uL (unkn own) (unknown) (no date) (unknown) (unknown) 200 /uL (unkn own) (unknown) (no date) (unknown) (unknown) 22.7 % (unkn own) (unknown) (no date) (unknown) (unknown) 3.2 % (unkn own) (unknown) (no date) (unknown) (unknown) 31.8 PG (unkn own) (unknown) (no date) (unknown) (unknown) 34.6 % (unkn own) (unknown) (no date) (unknown) (unknown) 39.6 % (unkn own) (unknown) (no date) (unknown) (unknown) 4.31 X10 6/uL (unkn own) (unknown) (no date) (unknown) (unknown) 4100 /uL (unkn own) (unknown) (no date) (unknown) (unknown) 6.7 X10 3/uL (unkn own) (unknown) (no date) (unknown) (unknown) 61.4 % (unkn own) (unknown) (no date) (unknown) (unknown) 800 /uL (unkn own) (unknown) (no date) (unknown) (unknown) 91.9 fL (unkn own) Result panel 53 (unknown) (no date) (unknown) (unknown) > 60 mL/min (unkn own) (unknown) (no date) (unknown) (unknown) 0.74 mg/dL (unkn own) (unknown) (no date) (unknown) (unknown) 1.4 (units unknown) (unknown) (unknown) (no date) (unknown) (unknown) 1.4 mg/dL (unkn own) (unknown) (no date) (unknown) (unknown) 103 mmol/L (unkn own) (unknown) (no date) (unknown) (unknown) 123 mg/dL (unkn own) (unknown) (no date) (unknown) (unknown) 137 mmol/L (unkn own) (unknown) (no date) (unknown) (unknown) 18 mg/dL (unkn own) (unknown) (no date) (unknown) (unknown) 2.1 mg/dL (unkn own) (unknown) (no date) (unknown) (unknown) 2.5 g/dL (unkn own) (unknown) (no date) (unknown) (unknown) 24.3 (units unknown) (unknown) (unknown) (no date) (unknown) (unknown) 26 IU/L (unkn own) (unknown) (no date) (unknown) (unknown) 29 IU/L (unkn own) (unknown) (no date) (unknown) (unknown) 3.6 g/dL (unkn own) (unknown) (no date) (unknown) (unknown) 3.8 mmol/L (unkn own) (unknown) (no date) (unknown) (unknown) 32 mmol/L (unkn own) (unknown) (no date) (unknown) (unknown) 50 U/L (unkn own) (unknown) (no date) (unknown) (unknown) 6.1 g/dL (unkn own) (unknown) (no date) (unknown) (unknown) 8.2 mg/dL (unkn own) Result panel 54 (unknown) (no (unknown) (unknown) (no value) (units (unk nown) date) unknown) (unknown) (no (unknown) (unknown) Date of Service: (units (unknown) date) 12/08/21 unknown) (unknown) (no (unknown) (unknown) (no value) (units (unk nown) date) unknown) (unknown) (no (unknown) (unknown) - (units (unkno wn) date) unknown) (unknown) (no (unknown) (unknown) 0.2 mg PO TID 0RF (units (unknown) date) unknown) (unknown) (no (unknown) (unknown) 12/10/21 07:26 (units (unknown) date) unknown) (unknown) (no (unknown) (unknown) 1 puff INHALATION (units (unknown) date) Q4-6H PRN (Reason: unknown) shortness of breath or wheezing) Qty: 15 (unknown) (no (unknown) (unknown) 1 spray (units (unkno wn) date) Intranasal DAILY unknown) PRN (Reason: Allergy Symptoms) Qty: 0 0RF (unknown) (no (unknown) (unknown) 1 tab PO DAILY (units (unknown) date) Qty: 0 0RF unknown) (unknown) (no (unknown) (unknown) 1 tab PO Q6HR PRN (units (unknown) date) (Reason: Back unknown) Pain) 0RF (unknown) (no (unknown) (unknown) 1 tab PO Q8H PRN (units (unknown) date) (Reason: pain) unknown) Qty: 10 0RF (unknown) (no (unknown) (unknown) 1 tab PO TID PRN (units (unknown) date) (Reason: pain) unknown) Qty: 10 0RF (unknown) (no (unknown) (unknown) 10 mg PO DAILY (units (unknown) date) 0RF unknown) (unknown) (no (unknown) (unknown) 10 mg PO Q4-5H (units (unknown) date) PRN (Reason: Pain, unknown) Severe (7-10)) Qty: 60 0RF (unknown) (no (unknown) (unknown) 100 mg PO DAILY (units (unknown) date) 0RF unknown) (unknown) (no (unknown) (unknown) 100 mg PO TID PRN (units (unknown) date) (Reason: cough) unknown) Qty: 14 0RF (unknown) (no (unknown) (unknown) 2 g topical QID (units (unknown) date) Qty: 100 0RF unknown) (unknown) (no (unknown) (unknown) 2.5 mg PO DAILY (units (unknown) date) 0RF unknown) (unknown) (no (unknown) (unknown) 2.5 mg inhalation (units (unknown) date) QID Qty: 90 1RF unknown) (unknown) (no (unknown) (unknown) 20 mg PO DAILY (units (unknown) date) Qty: 32 0RF unknown) (unknown) (no (unknown) (unknown) 25 mg PO QID PRN (units (unknown) date) (Reason: vertigo) unknown) Qty: 30 0RF (unknown) (no (unknown) (unknown) 3 ml Inhalation (units (unknown) date) Q6H PRN (Reason: unknown) Shortness Of Breath) 0RF (unknown) (no (unknown) (unknown) 300 mg PO BID (units ( unknown) date) Qty: 20 0RF unknown) (unknown) (no (unknown) (unknown) 325 mg PO DAILY (units (unknown) date) 0RF unknown) (unknown) (no (unknown) (unknown) 40 mg PO DAILY (units (unknown) date) 0RF unknown) (unknown) (no (unknown) (unknown) 400 tab PO (units (unk nown) date) BEDTIME 0RF unknown) (unknown) (no (unknown) (unknown) 50 mg PO DAILY (units (unknown) date) Qty: 5 0RF unknown) (unknown) (no (unknown) (unknown) 500 mg PO Q8H PRN (units (unknown) date) (Reason: muscle unknown) spasm) Qty: 14 0RF (unknown) (no (unknown) (unknown) 60mg x 5 day, (units ( unknown) date) 40mg x 5 day, 20mg unknown) x5 day, 10mg x 4 days (unknown) (no (unknown) (unknown) 650 mg PO Q6H PRN (units (unknown) date) (Reason: pain) unknown) Qty: 60 0RF (unknown) (no (unknown) (unknown) Comment: (units (unkno wn) date) unknown) (unknown) (no (unknown) (unknown) Discharge Summary (units (unknown) date) unknown) (unknown) (no (unknown) (unknown) INHALE 1 VIAL PER (units (unknown) date) NEBULIZER EVERY 6 unknown) HOURS NEEDED (unknown) (no (unknown) (unknown) [facility] (units (unknown) date) [address] unknown) [place] [id number] (unknown) (no (unknown) (unknown) Label Comments: (units (unknown) date) unknown) (unknown) (no (unknown) (unknown) Laboratory (units (unk nown) date) Results - last 24 unknown) hr (unknown) (no (unknown) (unknown) Physician (units (unkn own) date) Instructions: unknown) Evaluate and Treat (unknown) (no (unknown) (unknown) Physician (units (unkn own) date) Instructions: unknown) Evaluate and treat (unknown) (no (unknown) (unknown) Reason For Exam: (units (unknown) date) based on admit unknown) nutrition assessment (unknown) (no (unknown) (unknown) Rx Instructions: (units (unknown) date) unknown) (unknown) (no (unknown) (unknown) Spouse Milana (units (u nknown) date) called + reported unknown) patient not taking it regularly. (unknown) (no (unknown) (unknown) apply to single (units (unknown) date) elbow, wrist or unknown) hand; for hand includes palm/fingers/back of (unknown) (no (unknown) (unknown) patient states (units (unknown) date) weaning off. unknown) (unknown) (no (unknown) (unknown) take 1 tablet by (units (unknown) date) mouth once daily unknown) (unknown) (no (unknown) (unknown) take 1 tablet by (units (unknown) date) mouth twice a day unknown) (unknown) (no (unknown) (unknown) (no value) (units (unk nown) date) unknown) (unknown) (no (unknown) (unknown) 12/10/21 12/10/21 (units (unknown) date) unknown) (unknown) (no (unknown) (unknown) 07:26 07:26 (units (un known) date) unknown) (unknown) (no (unknown) (unknown) Zyrtec 10 mg (units (u nknown) date) Capsule unknown) (unknown) (no (unknown) (unknown) acetaminophen (units ( unknown) date) [Athenol] 325 mg unknown) tablet (unknown) (no (unknown) (unknown) acetaminophen-cod (units (unknown) date) eine 300-30 mg unknown) tablet (unknown) (no (unknown) (unknown) albuterol sulfate (units (unknown) date) 1.25 mg/3 mL unknown) solution for nebulization (unknown) (no (unknown) (unknown) benzonatate (units (un known) date) [Tessalon Perles] unknown) 100 mg capsule (unknown) (no (unknown) (unknown) cefdinir 300 mg (units (unknown) date) capsule unknown) (unknown) (no (unknown) (unknown) clonidine HCl 0.1 (units (unknown) date) mg tablet unknown) (unknown) (no (unknown) (unknown) diclofenac sodium (units (unknown) date) 1 % gel unknown) (unknown) (no (unknown) (unknown) ferrous sulfate (units (unknown) date) 325 mg (65 mg unknown) iron) tablet,delayed release (DR/EC) (unknown) (no (unknown) (unknown) fluticasone (units (un known) date) propionate 16 GM unknown) spray,suspension (unknown) (no (unknown) (unknown) furosemide (units (unk nown) date) [Lasix] 40 mg unknown) tablet (unknown) (no (unknown) (unknown) glipizide (units (unkn own) date) [Glucotrol XL] 2.5 unknown) mg tablet extended release 24 hr (unknown) (no (unknown) (unknown) levalbuterol HCl (units (unknown) date) 1.25 mg/3 mL unknown) solution for nebulization (unknown) (no (unknown) (unknown) levalbuterol (units (u nknown) date) tartrate [Xopenex unknown) HFA] 45 mcg/actuation HFA aerosol inhaler (unknown) (no (unknown) (unknown) lisinopril 10 mg (units (unknown) date) tablet unknown) (unknown) (no (unknown) (unknown) meclizine 25 mg (units (unknown) date) tablet unknown) (unknown) (no (unknown) (unknown) methocarbamol 500 (units (unknown) date) mg tablet unknown) (unknown) (no (unknown) (unknown) metoprolol (units (unk nown) date) tartrate 100 mg unknown) tablet (unknown) (no (unknown) (unknown) multivitamin (units (u nknown) date) [Multiple unknown) Vitamins] 1 EACH tablet (unknown) (no (unknown) (unknown) oxycodone 5 mg (units (unknown) date) Tablet unknown) (unknown) (no (unknown) (unknown) oxycodone-acetami (units (unknown) date) nophen [Percocet] unknown) 5-325 mg tablet (unknown) (no (unknown) (unknown) prednisone 20 mg (units (unknown) date) tablet unknown) (unknown) (no (unknown) (unknown) prednisone 50 mg (units (unknown) date) tablet unknown) (unknown) (no (unknown) (unknown) trazodone 100 mg (units (unknown) date) tablet unknown) (unknown) (no (unknown) (unknown) 12/10/21 (units (unkno wn) date) unknown) (unknown) (no (unknown) (unknown) (past 8 hours): (units (unknown) date) unknown) (unknown) (no (unknown) (unknown) [id number] (units (unkn own) date) unknown) (unknown) (no (unknown) (unknown) 03:00 12/10/21 (units (unknown) date) unknown) (unknown) (no (unknown) (unknown) 03:40 12/10/21 (units (unknown) date) unknown) (unknown) (no (unknown) (unknown) 04:11 (units (unkno wn) date) unknown) (unknown) (no (unknown) (unknown) 04:42 12/10/21 (units (unknown) date) unknown) (unknown) (no (unknown) (unknown) 12/08/21 08:04 (units (unknown) date) unknown) (unknown) (no (unknown) (unknown) 12/08/21 12:38 (units (unknown) date) unknown) (unknown) (no (unknown) (unknown) 12/08/21 13:57 (units (unknown) date) unknown) (unknown) (no (unknown) (unknown) 08:00 12/10/21 (units (unknown) date) unknown) (unknown) (no (unknown) (unknown) 09:44 (units (unkno wn) date) unknown) (unknown) (no (unknown) (unknown) 0RF (units (unkno wn) date) unknown) (unknown) (no (unknown) (unknown) ALT 29 (units (unkno wn) date) unknown) (unknown) (no (unknown) (unknown) AST 26 (units (unkno wn) date) unknown) (unknown) (no (unknown) (unknown) Achalasia (units (unkn own) date) unknown) (unknown) (no (unknown) (unknown) Age/Sex: 76 / M (units (unknown) date) unknown) (unknown) (no (unknown) (unknown) Albumin 3.6 (units ( unknown) date) unknown) (unknown) (no (unknown) (unknown) Albumin/Globulin (units (unknown) date) Ratio 1.4 unknown) (unknown) (no (unknown) (unknown) Alkaline (units (unkno wn) date) Phosphatase 50 unknown) (unknown) (no (unknown) (unknown) Anginal pain (units (u nknown) date) unknown) (unknown) (no (unknown) (unknown) Kimmy Gomez, (units (unknown) date) MD unknown) (unknown) (no (unknown) (unknown) Asthma (units (unkno wn) date) unknown) (unknown) (no (unknown) (unknown) Atrial (units (unkno wn) date) fibrillation unknown) (unknown) (no (unknown) (unknown) BUN 18 (units (unkno wn) date) unknown) (unknown) (no (unknown) (unknown) BUN/Creatinine (units (unknown) date) Ratio 24.3 H unknown) (unknown) (no (unknown) (unknown) Baso # (Auto) (units ( unknown) date) 100 unknown) (unknown) (no (unknown) (unknown) Baso % (Auto) (units ( unknown) date) 0.8 unknown) (unknown) (no (unknown) (unknown) Blood Pressure (units (unknown) date) 132/61 unknown) (unknown) (no (unknown) (unknown) Blood Pressure (units (unknown) date) 163/81 H 163/81 H unknown) (unknown) (no (unknown) (unknown) COPD (chronic (units ( unknown) date) obstructive unknown) pulmonary disease) (unknown) (no (unknown) (unknown) Calcium 8.2 L (units (unknown) date) unknown) (unknown) (no (unknown) (unknown) Carbon Dioxide (units (unknown) date) 32 unknown) (unknown) (no (unknown) (unknown) Cervical spinal (units (unknown) date) stenosis unknown) (unknown) (no (unknown) (unknown) Chief complaint: (units (unknown) date) Back Pain unknown) (unknown) (no (unknown) (unknown) Chloride 103 (units (unknown) date) unknown) (unknown) (no (unknown) (unknown) 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 (10/22/16) (unknown) (no (unknown) (unknown) Consult to (units (unk nown) date) Dietitian, Adult unknown) Routine (unknown) (no (unknown) (unknown) Consult to (units (unk nown) date) Occupational unknown) Therapy Evaluate + Treat (unknown) (no (unknown) (unknown) Consult to (units (unk nown) date) Physical Therapy unknown) Evaluate + Treat (unknown) (no (unknown) (unknown) Consults: (units (unkn own) date) unknown) (unknown) (no (unknown) (unknown) Coronary artery (units (unknown) date) disease unknown) (unknown) (no (unknown) (unknown) Creatinine 0.74 (units (unknown) date) unknown) (unknown) (no (unknown) (unknown) : 1945 (units (unknown) date) Acct:[id number] unknown) (unknown) (no (unknown) (unknown) Kimmy Gomez, (units (unknown) date) [Primary Care unknown) Provider] - (unknown) (no (unknown) (unknown) Date Patient (units (u nknown) date) Seen: 12/10/21 unknown) (unknown) (no (unknown) (unknown) Date of (units (unkno wn) date) admission: unknown) (unknown) (no (unknown) (unknown) Discharge Data (units (unknown) date) unknown) (unknown) (no (unknown) (unknown) Discharge Date: (units (unknown) date) 12/10/21 unknown) (unknown) (no (unknown) (unknown) Discharge Plan (units (unknown) date) unknown) (unknown) (no (unknown) (unknown) Discharge (units (unkn own) date) Providers unknown) (unknown) (no (unknown) (unknown) Discharge orders (units (unknown) date) + Medications unknown) (unknown) (no (unknown) (unknown) Discharge (units (unkn own) date) provider: unknown) (unknown) (no (unknown) (unknown) Eos # (Auto) 200 (units (unknown) date) unknown) (unknown) (no (unknown) (unknown) Eos % (Auto) 3.2 (units (unknown) date) unknown) (unknown) (no (unknown) (unknown) Estimated GFR > (units (unknown) date) 60 unknown) (unknown) (no (unknown) (unknown) Exam (units (unkno wn) date) unknown) (unknown) (no (unknown) (unknown) Family History (units (unknown) date) (Updated 12/08/21 unknown) @ 13:50 by Aditya Tapia DO) (unknown) (no (unknown) (unknown) Father (units (unkno wn) date) Hypertension unknown) (unknown) (no (unknown) (unknown) Follow (units (unkno wn) date) up/Referrals: unknown) (unknown) (no (unknown) (unknown) Globulin 2.5 (units (unknown) date) unknown) (unknown) (no (unknown) (unknown) Glucose 123 H (units (unknown) date) unknown) (unknown) (no (unknown) (unknown) H/O arthroscopic (units (unknown) date) knee surgery unknown) (11/14/17) (unknown) (no (unknown) (unknown) Hct 39.6 L (units (un known) date) unknown) (unknown) (no (unknown) (unknown) Hgb 13.7 (units (unkn own) date) unknown) (unknown) (no (unknown) (unknown) History of (units (unk nown) date) Present Illness unknown) (unknown) (no (unknown) (unknown) History of aortic (units (unknown) date) dissection unknown) () (unknown) (no (unknown) (unknown) History of (units (unk nown) date) arthroplasty of unknown) right knee (unknown) (no (unknown) (unknown) History of (units (unk nown) date) bilateral total unknown) hip arthroplasty (unknown) (no (unknown) (unknown) History of (units (unk nown) date) cardiac cath unknown) () (unknown) (no (unknown) (unknown) History of (units (unk nown) date) esophageal surgery unknown) (unknown) (no (unknown) (unknown) History of (units (unk nown) date) incision and unknown) drainage (-2016) (unknown) (no (unknown) (unknown) History of prior (units (unknown) date) ablation treatment unknown) (-03/2017) (unknown) (no (unknown) (unknown) History of (units (unk nown) date) surgery unknown) (unknown) (no (unknown) (unknown) Hx of (units (unkno wn) date) cholecystectomy unknown) (unknown) (no (unknown) (unknown) Hx of hernia (units (u nknown) date) repair unknown) (unknown) (no (unknown) (unknown) Hx of sinus (units (un known) date) surgery unknown) (unknown) (no (unknown) (unknown) Hypertension (units (u nknown) date) unknown) (unknown) (no (unknown) (unknown) In the emergency (units (unknown) date) room, the patient unknown) was given phenobarbital with some improvement (unknown) (no (unknown) (unknown) Ischemic (units (unkno wn) date) cardiomyopathy unknown) (unknown) (no (unknown) (unknown) Labs (units (unkno wn) date) unknown) (unknown) (no (unknown) (unknown) Labs: (units (unkno wn) date) unknown) (unknown) (no (unknown) (unknown) Lymph # (Auto) (units (unknown) date) 1500 unknown) (unknown) (no (unknown) (unknown) Lymph % (Auto) (units (unknown) date) 22.7 L unknown) (unknown) (no (unknown) (unknown) MCH 31.8 (units (unkn own) date) unknown) (unknown) (no (unknown) (unknown) MCHC 34.6 (units (unk nown) date) unknown) (unknown) (no (unknown) (unknown) MCV 91.9 (units (unkn own) date) unknown) (unknown) (no (unknown) (unknown) Magnesium 2.1 (units (unknown) date) unknown) (unknown) (no (unknown) (unknown) Medical History (units (unknown) date) (Reviewed 12/08/21 unknown) @ 13:50 by Aditya Tapia DO) (unknown) (no (unknown) (unknown) [place] # (Auto) (units ( unknown) date) 800 unknown) (unknown) (no (unknown) (unknown) [place] % (Auto) (units ( unknown) date) 11.9 unknown) (unknown) (no (unknown) (unknown) Mother (units (unknown) date) Stroke unknown) (unknown) (no (unknown) (unknown) Narcotic (units (unkno wn) date) dependence unknown) (unknown) (no (unknown) (unknown) Narrative: (units (unk nown) date) unknown) (unknown) (no (unknown) (unknown) Neck pain, (units (unk nown) date) chronic unknown) (unknown) (no (unknown) (unknown) Neut # (Auto) (units ( unknown) date) 4100 unknown) (unknown) (no (unknown) (unknown) Neut % (Auto) (units ( unknown) date) 61.4 unknown) (unknown) (no (unknown) (unknown) No Action (units (unkn own) date) unknown) (unknown) (no (unknown) (unknown) Objective (units (unkn own) date) unknown) (unknown) (no (unknown) (unknown) Oxygen Delivery (units (unknown) date) Method Room Air unknown) (unknown) (no (unknown) (unknown) Oxygen Flow Rate (units (unknown) date) 0 unknown) (unknown) (no (unknown) (unknown) PFSH (units (unkno wn) date) unknown) (unknown) (no (unknown) (unknown) Patient: (units (unkno wn) date) Jackeline,Dominic Gisele unknown) MR#: M (unknown) (no (unknown) (unknown) Plt Count 188 (units (unknown) date) unknown) (unknown) (no (unknown) (unknown) Potassium 3.8 (units (unknown) date) unknown) (unknown) (no (unknown) (unknown) Prescriptions: (units (unknown) date) unknown) (unknown) (no (unknown) (unknown) Primary Care (units (u nknown) date) Provider: unknown) Kimmy Gomez (unknown) (no (unknown) (unknown) Primary care (units (u nknown) date) physician: unknown) (unknown) (no (unknown) (unknown) Provider (units (unkno wn) date) unknown) (unknown) (no (unknown) (unknown) Provider: (units (unkn own) date) Aditya Tapia unknown) D.O. (unknown) (no (unknown) (unknown) Pulse Oximetry (units (unknown) date) 94 unknown) (unknown) (no (unknown) (unknown) Pulse Oximetry 94 (units (unknown) date) 94 93 unknown) (unknown) (no (unknown) (unknown) Pulse Rate 95 H (units (unknown) date) unknown) (unknown) (no (unknown) (unknown) Pulse Rate 85 86 (units (unknown) date) unknown) (unknown) (no (unknown) (unknown) RBC 4.31 L (units (un known) date) unknown) (unknown) (no (unknown) (unknown) RDW 13.3 (units (unkn own) date) unknown) (unknown) (no (unknown) (unknown) Respiratory Rate (units (unknown) date) 15 unknown) (unknown) (no (unknown) (unknown) Respiratory Rate (units (unknown) date) 17 19 unknown) (unknown) (no (unknown) (unknown) Result Diagrams: (units (unknown) date) unknown) (unknown) (no (unknown) (unknown) Aditya Tapia, (units (unknown) date) DO unknown) (unknown) (no (unknown) (unknown) S/P CABG x 3 (units (u nknown) date) () unknown) (unknown) (no (unknown) (unknown) S/P cervical (units (u nknown) date) spinal fusion unknown) (unknown) (no (unknown) (unknown) S/P lumbar fusion (units (unknown) date) unknown) (unknown) (no (unknown) (unknown) Signed By: (units (unk nown) date) unknown) (unknown) (no (unknown) (unknown) Smoking Status: (units (unknown) date) Former smoker unknown) (unknown) (no (unknown) (unknown) Social History (units (unknown) date) (Reviewed 12/08/21 unknown) @ 01:57 by Jung Dejesus DO) (unknown) (no (unknown) (unknown) Sodium 137 (units (u nknown) date) unknown) (unknown) (no (unknown) (unknown) Surgical History (units (unknown) date) (Reviewed 12/08/21 unknown) @ 13:50 by Aditya Tapia DO) (unknown) (no (unknown) (unknown) Temperature 97.6 (units (unknown) date) F unknown) (unknown) (no (unknown) (unknown) Temperature 98.1 (units (unknown) date) F unknown) (unknown) (no (unknown) (unknown) This is a 76 year (units (unknown) date) old male with PMH unknown) of afib, CAD, prior aortic dissection, (unknown) (no (unknown) (unknown) Time Patient (units (u nknown) date) Seen: 10:10 unknown) (unknown) (no (unknown) (unknown) Total Bilirubin (units (unknown) date) 1.4 H unknown) (unknown) (no (unknown) (unknown) Total Protein (units ( unknown) date) 6.1 L unknown) (unknown) (no (unknown) (unknown) Ventricular (units (un known) date) bigeminy unknown) (unknown) (no (unknown) (unknown) Vital Signs (units (un known) date) unknown) (unknown) (no (unknown) (unknown) WBC 6.7 (units (unkno wn) date) unknown) (unknown) (no (unknown) (unknown) [Embedded Image (units (unknown) date) Not Available] unknown) (unknown) (no (unknown) (unknown) alcohol intake: (units (unknown) date) current unknown) (unknown) (no (unknown) (unknown) any prior (units (unkn own) date) seizures from unknown) alcohol withdrawal. He states that he ran out of (unknown) (no (unknown) (unknown) chronic low back (units (unknown) date) pain who presented unknown) after a fall. He had been drinking last (unknown) (no (unknown) (unknown) consciousness and (units (unknown) date) he had no nausea unknown) or vomiting, chest pain, palpitations, (unknown) (no (unknown) (unknown) denies any (units (unk nown) date) shaking or unknown) withdrawal symptoms when he stops drinking, and he denies (unknown) (no (unknown) (unknown) did drink (units (unkno wn) date) yesterday evening, unknown) he does not think that he drinks that much. He did (unknown) (no (unknown) (unknown) evaluation was (units (unknown) date) unremarkable, unknown) urinalysis was unremarkable, urine drug screen was (unknown) (no (unknown) (unknown) hand (units (unkno wn) date) unknown) (unknown) (no (unknown) (unknown) household (units (unkn own) date) members: spouse unknown) (unknown) (no (unknown) (unknown) in his symptoms, (units (unknown) date) he did remain more unknown) hypertensive with nausea and vomiting but (unknown) (no (unknown) (unknown) nausea and (units (unkn own) date) vomiting that was unknown) reportedly intractable. The patient states that he (unknown) (no (unknown) (unknown) night when he (units ( unknown) date) stumbled and fell unknown) forward, striking his nose. He denied loss of (unknown) (no (unknown) (unknown) not further (units (un known) date) quantify how much unknown) he drinks every day when asked directly. He (unknown) (no (unknown) (unknown) positive for (units (u nknown) date) opiates and unknown) benzodiazepines. Alcohol level was 111. COVID-19 (unknown) (no (unknown) (unknown) shortness of (units (u nknown) date) breath. In the unknown) emergency room, the patient was hypertensive, with (unknown) (no (unknown) (unknown) substance use (units ( unknown) date) type: does not unknown) use (unknown) (no (unknown) (unknown) testing was (units (un known) date) negative. Patient unknown) was admitted for further management of alcohol (unknown) (no (unknown) (unknown) that he had been (units (unknown) date) on clonidine unknown) recently from his PCP. Initial laboratory (unknown) (no (unknown) (unknown) this improved with (units (unknown) date) Ativan that was unknown) given in the emergency room. It also appears (unknown) (no (unknown) (unknown) trazodone and had (units (unknown) date) not slept in 2 unknown) days at home, and this is why he drank (unknown) (no (unknown) (unknown) withdrawal (units (unk nown) date) unknown) (unknown) (no (unknown) (unknown) yesterday (units (unkn own) date) evening. unknown) Result panel 55 (unknown) (no date) (unknown) (unknown) 0.8 % (unkn own) (unknown) (no date) (unknown) (unknown) 100 /uL (unkn own) (unknown) (no date) (unknown) (unknown) 100 /uL (unkn own) (unknown) (no date) (unknown) (unknown) 13.7 % (unkn own) (unknown) (no date) (unknown) (unknown) 15.6 g/dL (unkn own) (unknown) (no date) (unknown) (unknown) 1700 /uL (unkn own) (unknown) (no date) (unknown) (unknown) 2.0 % (unkn own) (unknown) (no date) (unknown) (unknown) 23.0 % (unkn own) (unknown) (no date) (unknown) (unknown) 241 X10 3/uL (unkn own) (unknown) (no date) (unknown) (unknown) 31.7 PG (unkn own) (unknown) (no date) (unknown) (unknown) 34.0 % (unkn own) (unknown) (no date) (unknown) (unknown) 4.93 X10 6/uL (unkn own) (unknown) (no date) (unknown) (unknown) 46.0 % (unkn own) (unknown) (no date) (unknown) (unknown) 4800 /uL (unkn own) (unknown) (no date) (unknown) (unknown) 64.7 % (unkn own) (unknown) (no date) (unknown) (unknown) 7.4 X10 3/uL (unkn own) (unknown) (no date) (unknown) (unknown) 700 /uL (unkn own) (unknown) (no date) (unknown) (unknown) 9.5 % (unkn own) (unknown) (no date) (unknown) (unknown) 93.3 fL (unkn own) Result panel 56 (unknown) (no date) (unknown) (unknown) > 60 mL/min (unkn own) (unknown) (no date) (unknown) (unknown) < 1.0 mg/dL (unkn own) (unknown) (no date) (unknown) (unknown) < 10 ug/mL (unkn own) (unknown) (no date) (unknown) (unknown) 0.88 mg/dL (unkn own) (unknown) (no date) (unknown) (unknown) 0.9 mg/dL (unkn own) (unknown) (no date) (unknown) (unknown) 1.4 (units unknown) (unknown) (unknown) (no date) (unknown) (unknown) 104 mmol/L (unkn own) (unknown) (no date) (unknown) (unknown) 111 mg/dL (unkn own) (unknown) (no date) (unknown) (unknown) 124 mg/dL (unkn own) (unknown) (no date) (unknown) (unknown) 140 mmol/L (unkn own) (unknown) (no date) (unknown) (unknown) 18.9 ng/mL (unkn own) (unknown) (no date) (unknown) (unknown) 2.3 mmol/L (unkn own) (unknown) (no date) (unknown) (unknown) 2.9 g/dL (unkn own) (unknown) (no date) (unknown) (unknown) 21 mg/dL (unkn own) (unknown) (no date) (unknown) (unknown) 23.9 (units unknown) (unknown) (unknown) (no date) (unknown) (unknown) 27 mmol/L (unkn own) (unknown) (no date) (unknown) (unknown) 31 IU/L (unkn own) (unknown) (no date) (unknown) (unknown) 32 IU/L (unkn own) (unknown) (no date) (unknown) (unknown) 4.1 g/dL (unkn own) (unknown) (no date) (unknown) (unknown) 4.5 mmol/L (unkn own) (unknown) (no date) (unknown) (unknown) 64 U/L (unkn own) (unknown) (no date) (unknown) (unknown) 7.0 g/dL (unkn own) (unknown) (no date) (unknown) (unknown) 8.4 mg/dL (unkn own) Result panel 57 (unknown) (no date) (unknown) (unknown) > 60 mL/min (unkn own) (unknown) (no date) (unknown) (unknown) < 1.0 mg/dL (unkn own) (unknown) (no date) (unknown) (unknown) < 10 ug/mL (unkn own) (unknown) (no date) (unknown) (unknown) 0.88 mg/dL (unkn own) (unknown) (no date) (unknown) (unknown) 0.9 mg/dL (unkn own) (unknown) (no date) (unknown) (unknown) 1.4 (units (unkn own) unknown) (unknown) (no date) (unknown) (unknown) 104 mmol/L (unkn own) (unknown) (no date) (unknown) (unknown) 111 mg/dL (unkn own) (unknown) (no date) (unknown) (unknown) 124 mg/dL (unkn own) (unknown) (no date) (unknown) (unknown) 140 mmol/L (unkn own) (unknown) (no date) (unknown) (unknown) 18.9 ng/mL (unkn own) (unknown) (no date) (unknown) (unknown) 2.07 uIU/mL (unkn own) (unknown) (no date) (unknown) (unknown) 2.9 g/dL (unkn own) (unknown) (no date) (unknown) (unknown) 21 mg/dL (unkn own) (unknown) (no date) (unknown) (unknown) 23.9 (units (unkn own) unknown) (unknown) (no date) (unknown) (unknown) 27 mmol/L (unkn own) (unknown) (no date) (unknown) (unknown) 31 IU/L (unkn own) (unknown) (no date) (unknown) (unknown) 32 IU/L (unkn own) (unknown) (no date) (unknown) (unknown) 4.1 g/dL (unkn own) (unknown) (no date) (unknown) (unknown) 4.5 mmol/L (unkn own) (unknown) (no date) (unknown) (unknown) 64 U/L (unkn own) (unknown) (no date) (unknown) (unknown) 7.0 g/dL (unkn own) (unknown) (no date) (unknown) (unknown) 8.4 mg/dL (unkn own) (unknown) (no date) (unknown) (unknown) Negative (units (unkn own) unknown) Result panel 58 (unknown) (no date) (unknown) (unknown) 0-1 /HPF (units (unkn own) unknown) (unknown) (no date) (unknown) (unknown) 0.2 E.U./dL (unkn own) (unknown) (no date) (unknown) (unknown) 1.020 (units (unkn own) unknown) (unknown) (no date) (unknown) (unknown) 5.0 (units (unkn own) unknown) (unknown) (no date) (unknown) (unknown) CLEAR (units (unkn own) unknown) (unknown) (no date) (unknown) (unknown) Cult Not (units (unkn own) Indicated unknown) (unknown) (no date) (unknown) (unknown) NEGATIVE (units (unkn own) unknown) (unknown) (no date) (unknown) (unknown) NEGATIVE g/dL (unkn own) (unknown) (no date) (unknown) (unknown) Negative (units (unkn own) unknown) (unknown) (no date) (unknown) (unknown) None Seen (units (unk nown) unknown) (unknown) (no date) (unknown) (unknown) None Seen (units (unk nown) unknown) (unknown) (no date) (unknown) (unknown) Normal (units (unkn own) unknown) (unknown) (no date) (unknown) (unknown) Positive (units (unkn own) unknown) (unknown) (no date) (unknown) (unknown) TRACE (units (unkn own) unknown) (unknown) (no date) (unknown) (unknown) YELLOW (units (unkn own) unknown) Result panel 59 (unknown) (no date) (unknown) (unknown) 1.5 mmol/L (unkn own) Result panel 60 (unknown) (no date) (unknown) (unknown) NO GROWTH (units (unk nown) AFTER 48 unknown) HOURS (unknown) (no date) (unknown) (unknown) (no value) (units (un known) unknown) Result panel 61 (unknown) (no date) (unknown) (unknown) NO GROWTH (units (unk nown) AFTER 48 unknown) HOURS (unknown) (no date) (unknown) (unknown) (no value) (units (un known) unknown) Result panel 62 (unknown) (no date) (unknown) (unknown) NO GROWTH (units (unk nown) AFTER 48 unknown) HOURS (unknown) (no date) (unknown) (unknown) (no value) (units (un known) unknown) Result panel 63 (unknown) (no date) (unknown) (unknown) 0.8 % (unkn own) (unknown) (no date) (unknown) (unknown) 100 /uL (unkn own) (unknown) (no date) (unknown) (unknown) 11.9 % (unkn own) (unknown) (no date) (unknown) (unknown) 13.3 % (unkn own) (unknown) (no date) (unknown) (unknown) 13.7 g/dL (unkn own) (unknown) (no date) (unknown) (unknown) 1500 /uL (unkn own) (unknown) (no date) (unknown) (unknown) 188 X10 3/uL (unkn own) (unknown) (no date) (unknown) (unknown) 200 /uL (unkn own) (unknown) (no date) (unknown) (unknown) 22.7 % (unkn own) (unknown) (no date) (unknown) (unknown) 3.2 % (unkn own) (unknown) (no date) (unknown) (unknown) 31.8 PG (unkn own) (unknown) (no date) (unknown) (unknown) 34.6 % (unkn own) (unknown) (no date) (unknown) (unknown) 39.6 % (unkn own) (unknown) (no date) (unknown) (unknown) 4.31 X10 6/uL (unkn own) (unknown) (no date) (unknown) (unknown) 4100 /uL (unkn own) (unknown) (no date) (unknown) (unknown) 6.7 X10 3/uL (unkn own) (unknown) (no date) (unknown) (unknown) 61.4 % (unkn own) (unknown) (no date) (unknown) (unknown) 800 /uL (unkn own) (unknown) (no date) (unknown) (unknown) 91.9 fL (unkn own) Result panel 64 (unknown) (no date) (unknown) (unknown) > 60 mL/min (unkn own) (unknown) (no date) (unknown) (unknown) 0.74 mg/dL (unkn own) (unknown) (no date) (unknown) (unknown) 1.4 (units unknown) (unknown) (unknown) (no date) (unknown) (unknown) 1.4 mg/dL (unkn own) (unknown) (no date) (unknown) (unknown) 103 mmol/L (unkn own) (unknown) (no date) (unknown) (unknown) 123 mg/dL (unkn own) (unknown) (no date) (unknown) (unknown) 137 mmol/L (unkn own) (unknown) (no date) (unknown) (unknown) 18 mg/dL (unkn own) (unknown) (no date) (unknown) (unknown) 2.1 mg/dL (unkn own) (unknown) (no date) (unknown) (unknown) 2.5 g/dL (unkn own) (unknown) (no date) (unknown) (unknown) 24.3 (units unknown) (unknown) (unknown) (no date) (unknown) (unknown) 26 IU/L (unkn own) (unknown) (no date) (unknown) (unknown) 29 IU/L (unkn own) (unknown) (no date) (unknown) (unknown) 3.6 g/dL (unkn own) (unknown) (no date) (unknown) (unknown) 3.8 mmol/L (unkn own) (unknown) (no date) (unknown) (unknown) 32 mmol/L (unkn own) (unknown) (no date) (unknown) (unknown) 50 U/L (unkn own) (unknown) (no date) (unknown) (unknown) 6.1 g/dL (unkn own) (unknown) (no date) (unknown) (unknown) 8.2 mg/dL (unkn own) Result panel 65 (unknown) (no date) (unknown) (unknown) (no value) (units (un known) unknown) (unknown) (no date) (unknown) (unknown) NO GROWTH (units (unk nown) AFTER 72 unknown) HOURS Result panel 66 (unknown) (no date) (unknown) (unknown) (no value) (units (un known) unknown) (unknown) (no date) (unknown) (unknown) NO GROWTH (units (unk nown) AFTER 72 unknown) HOURS Result panel 67 (unknown) (no (unknown) (unknown) (no value) (units (unk nown) date) unknown) (unknown) (no (unknown) (unknown) Date of Service: (units (unknown) date) 12/08/21 unknown) (unknown) (no (unknown) (unknown) (no value) (units (unk nown) date) unknown) (unknown) (no (unknown) (unknown) - (units (unkno wn) date) unknown) (unknown) (no (unknown) (unknown) 0.2 mg PO TID 0RF (units (unknown) date) unknown) (unknown) (no (unknown) (unknown) 12/10/21 07:26 (units (unknown) date) unknown) (unknown) (no (unknown) (unknown) 1 puff INHALATION (units (unknown) date) Q4-6H PRN (Reason: unknown) shortness of breath or wheezing) Qty: 15 (unknown) (no (unknown) (unknown) 1 spray (units (unkno wn) date) Intranasal DAILY unknown) PRN (Reason: Allergy Symptoms) Qty: 0 0RF (unknown) (no (unknown) (unknown) 1 tab PO DAILY (units (unknown) date) Qty: 0 0RF unknown) (unknown) (no (unknown) (unknown) 1 tab PO Q6HR PRN (units (unknown) date) (Reason: Back unknown) Pain) 0RF (unknown) (no (unknown) (unknown) 1 tab PO Q8H PRN (units (unknown) date) (Reason: pain) unknown) Qty: 10 0RF (unknown) (no (unknown) (unknown) 1 tab PO TID PRN (units (unknown) date) (Reason: pain) unknown) Qty: 10 0RF (unknown) (no (unknown) (unknown) 10 mg PO DAILY (units (unknown) date) 0RF unknown) (unknown) (no (unknown) (unknown) 10 mg PO Q4-5H (units (unknown) date) PRN (Reason: Pain, unknown) Severe (7-10)) 7 Days Qty: 60 0RF (unknown) (no (unknown) (unknown) 100 mg PO DAILY (units (unknown) date) 0RF unknown) (unknown) (no (unknown) (unknown) 100 mg PO TID PRN (units (unknown) date) (Reason: cough) unknown) Qty: 14 0RF (unknown) (no (unknown) (unknown) 2 g topical QID (units (unknown) date) Qty: 100 0RF unknown) (unknown) (no (unknown) (unknown) 2.5 mg PO DAILY (units (unknown) date) 0RF unknown) (unknown) (no (unknown) (unknown) 2.5 mg inhalation (units (unknown) date) QID Qty: 90 1RF unknown) (unknown) (no (unknown) (unknown) 20 mg PO DAILY (units (unknown) date) Qty: 32 0RF unknown) (unknown) (no (unknown) (unknown) 25 mg PO QID PRN (units (unknown) date) (Reason: vertigo) unknown) Qty: 30 0RF (unknown) (no (unknown) (unknown) 3 ml Inhalation (units (unknown) date) Q6H PRN (Reason: unknown) Shortness Of Breath) 0RF (unknown) (no (unknown) (unknown) 300 mg PO BID (units ( unknown) date) Qty: 20 0RF unknown) (unknown) (no (unknown) (unknown) 325 mg PO DAILY (units (unknown) date) 0RF unknown) (unknown) (no (unknown) (unknown) 40 mg PO DAILY (units (unknown) date) 0RF unknown) (unknown) (no (unknown) (unknown) 400 tab PO (units (unk nown) date) BEDTIME 30 Days unknown) Qty: 120 0RF (unknown) (no (unknown) (unknown) 50 mg PO DAILY (units (unknown) date) Qty: 5 0RF unknown) (unknown) (no (unknown) (unknown) 500 mg PO Q8H PRN (units (unknown) date) (Reason: muscle unknown) spasm) Qty: 14 0RF (unknown) (no (unknown) (unknown) 60mg x 5 day, (units ( unknown) date) 40mg x 5 day, 20mg unknown) x5 day, 10mg x 4 days (unknown) (no (unknown) (unknown) 650 mg PO Q6H PRN (units (unknown) date) (Reason: pain) unknown) Qty: 60 0RF (unknown) (no (unknown) (unknown) Comment: (units (unkno wn) date) unknown) (unknown) (no (unknown) (unknown) Discharge Summary (units (unknown) date) unknown) (unknown) (no (unknown) (unknown) INHALE 1 VIAL PER (units (unknown) date) NEBULIZER EVERY 6 unknown) HOURS NEEDED (unknown) (no (unknown) (unknown) [facility] (units (unknown) date) [address] unknown) [place] [address] (unknown) (no (unknown) (unknown) Label Comments: (units (unknown) date) unknown) (unknown) (no (unknown) (unknown) Laboratory (units (unk nown) date) Results - last 24 unknown) hr (unknown) (no (unknown) (unknown) Physician (units (unkn own) date) Instructions: unknown) Evaluate and Treat (unknown) (no (unknown) (unknown) Physician (units (unkn own) date) Instructions: unknown) Evaluate and treat (unknown) (no (unknown) (unknown) Reason For Exam: (units (unknown) date) based on admit unknown) nutrition assessment (unknown) (no (unknown) (unknown) Rx Instructions: (units (unknown) date) unknown) (unknown) (no (unknown) (unknown) Spouse Milana (units (u nknown) date) called + reported unknown) patient not taking it regularly. (unknown) (no (unknown) (unknown) apply to single (units (unknown) date) elbow, wrist or unknown) hand; for hand includes palm/fingers/back of (unknown) (no (unknown) (unknown) take 1 tablet by (units (unknown) date) mouth once daily unknown) (unknown) (no (unknown) (unknown) take 1 tablet by (units (unknown) date) mouth twice a day unknown) (unknown) (no (unknown) (unknown) (no value) (units (unk nown) date) unknown) (unknown) (no (unknown) (unknown) 12/10/21 12/10/21 (units (unknown) date) unknown) (unknown) (no (unknown) (unknown) 07:26 07:26 (units (un known) date) unknown) (unknown) (no (unknown) (unknown) Zyrtec 10 mg (units (u nknown) date) Capsule unknown) (unknown) (no (unknown) (unknown) acetaminophen (units ( unknown) date) [Athenol] 325 mg unknown) tablet (unknown) (no (unknown) (unknown) acetaminophen-cod (units (unknown) date) eine 300-30 mg unknown) tablet (unknown) (no (unknown) (unknown) albuterol sulfate (units (unknown) date) 1.25 mg/3 mL unknown) solution for nebulization (unknown) (no (unknown) (unknown) benzonatate (units (un known) date) [Tessalon Perles] unknown) 100 mg capsule (unknown) (no (unknown) (unknown) cefdinir 300 mg (units (unknown) date) capsule unknown) (unknown) (no (unknown) (unknown) clonidine HCl 0.1 (units (unknown) date) mg tablet unknown) (unknown) (no (unknown) (unknown) diclofenac sodium (units (unknown) date) 1 % gel unknown) (unknown) (no (unknown) (unknown) ferrous sulfate (units (unknown) date) 325 mg (65 mg unknown) iron) tablet,delayed release (DR/EC) (unknown) (no (unknown) (unknown) fluticasone (units (un known) date) propionate 16 GM unknown) spray,suspension (unknown) (no (unknown) (unknown) furosemide (units (unk nown) date) [Lasix] 40 mg unknown) tablet (unknown) (no (unknown) (unknown) glipizide (units (unkn own) date) [Glucotrol XL] 2.5 unknown) mg tablet extended release 24 hr (unknown) (no (unknown) (unknown) levalbuterol HCl (units (unknown) date) 1.25 mg/3 mL unknown) solution for nebulization (unknown) (no (unknown) (unknown) levalbuterol (units (u nknown) date) tartrate [Xopenex unknown) HFA] 45 mcg/actuation HFA aerosol inhaler (unknown) (no (unknown) (unknown) lisinopril 10 mg (units (unknown) date) tablet unknown) (unknown) (no (unknown) (unknown) meclizine 25 mg (units (unknown) date) tablet unknown) (unknown) (no (unknown) (unknown) methocarbamol 500 (units (unknown) date) mg tablet unknown) (unknown) (no (unknown) (unknown) metoprolol (units (unk nown) date) tartrate 100 mg unknown) tablet (unknown) (no (unknown) (unknown) multivitamin (units (u nknown) date) [Multiple unknown) Vitamins] 1 EACH tablet (unknown) (no (unknown) (unknown) oxycodone 5 mg (units (unknown) date) Tablet unknown) (unknown) (no (unknown) (unknown) oxycodone-acetami (units (unknown) date) nophen [Percocet] unknown) 5-325 mg tablet (unknown) (no (unknown) (unknown) prednisone 20 mg (units (unknown) date) tablet unknown) (unknown) (no (unknown) (unknown) prednisone 50 mg (units (unknown) date) tablet unknown) (unknown) (no (unknown) (unknown) trazodone 100 mg (units (unknown) date) tablet unknown) (unknown) (no (unknown) (unknown) 12/10/21 (units (unkno wn) date) unknown) (unknown) (no (unknown) (unknown) (past 8 hours): (units (unknown) date) unknown) (unknown) (no (unknown) (unknown) [id number] (units (unkn own) date) unknown) (unknown) (no (unknown) (unknown) 03:00 12/10/21 (units (unknown) date) unknown) (unknown) (no (unknown) (unknown) 03:40 12/10/21 (units (unknown) date) unknown) (unknown) (no (unknown) (unknown) 04:11 (units (unkno wn) date) unknown) (unknown) (no (unknown) (unknown) 04:42 12/10/21 (units (unknown) date) unknown) (unknown) (no (unknown) (unknown) 12/08/21 08:04 (units (unknown) date) unknown) (unknown) (no (unknown) (unknown) 12/08/21 12:38 (units (unknown) date) unknown) (unknown) (no (unknown) (unknown) 12/08/21 13:57 (units (unknown) date) unknown) (unknown) (no (unknown) (unknown) 08:00 05 (units (unknown) date) unknown) (unknown) (no (unknown) (unknown) 09:44 (units (unkno wn) date) unknown) (unknown) (no (unknown) (unknown) 0RF (units (unkno wn) date) unknown) (unknown) (no (unknown) (unknown) ALT 29 (units (unkno wn) date) unknown) (unknown) (no (unknown) (unknown) AST 26 (units (unkno wn) date) unknown) (unknown) (no (unknown) (unknown) Abdomen: S NT ND. (units (unknown) date) unknown) (unknown) (no (unknown) (unknown) Achalasia (units (unkn own) date) unknown) (unknown) (no (unknown) (unknown) Activity: As (units (u nknown) date) tolerated unknown) (unknown) (no (unknown) (unknown) Age/Sex: 76 / M (units (unknown) date) unknown) (unknown) (no (unknown) (unknown) Albumin 3.6 (units ( unknown) date) unknown) (unknown) (no (unknown) (unknown) Albumin/Globulin (units (unknown) date) Ratio 1.4 unknown) (unknown) (no (unknown) (unknown) Alkaline (units (unkno wn) date) Phosphatase 50 unknown) (unknown) (no (unknown) (unknown) Anginal pain (units (u nknown) date) unknown) (unknown) (no (unknown) (unknown) Kimmy Francisco Gomez, (units (unknown) date) MD unknown) (unknown) (no (unknown) (unknown) Asthma (units (unkno wn) date) unknown) (unknown) (no (unknown) (unknown) Atrial (units (unkno wn) date) fibrillation unknown) (unknown) (no (unknown) (unknown) BUN 18 (units (unkno wn) date) unknown) (unknown) (no (unknown) (unknown) BUN/Creatinine (units (unknown) date) Ratio 24.3 H unknown) (unknown) (no (unknown) (unknown) Baso # (Auto) (units ( unknown) date) 100 unknown) (unknown) (no (unknown) (unknown) Baso % (Auto) (units ( unknown) date) 0.8 unknown) (unknown) (no (unknown) (unknown) Blood Pressure (units (unknown) date) 132/61 unknown) (unknown) (no (unknown) (unknown) Blood Pressure (units (unknown) date) 163/81 H 163/81 H unknown) (unknown) (no (unknown) (unknown) COPD (chronic (units ( unknown) date) obstructive unknown) pulmonary disease) (unknown) (no (unknown) (unknown) Calcium 8.2 L (units (unknown) date) unknown) (unknown) (no (unknown) (unknown) Carbon Dioxide (units (unknown) date) 32 unknown) (unknown) (no (unknown) (unknown) Cardio:?RRR no (units (unknown) date) m/r/g. unknown) (unknown) (no (unknown) (unknown) Cervical spinal (units (unknown) date) stenosis unknown) (unknown) (no (unknown) (unknown) Chest:? Normal AP (units (unknown) date) diameter and unknown) contour without kyphoscoliosis, no tachypnea, (unknown) (no (unknown) (unknown) Chief complaint: (units (unknown) date) Back Pain unknown) (unknown) (no (unknown) (unknown) Chloride 103 (units (unknown) date) unknown) (unknown) (no (unknown) (unknown) 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 (10/22/16) (unknown) (no (unknown) (unknown) Consult to (units (unk nown) date) Dietitian, Adult unknown) Routine (unknown) (no (unknown) (unknown) Consult to (units (unk nown) date) Occupational unknown) Therapy Evaluate + Treat (unknown) (no (unknown) (unknown) Consult to (units (unk nown) date) Physical Therapy unknown) Evaluate + Treat (unknown) (no (unknown) (unknown) Consults: (units (unkn own) date) unknown) (unknown) (no (unknown) (unknown) Continued (units (unkn own) date) unknown) (unknown) (no (unknown) (unknown) Coronary artery (units (unknown) date) disease unknown) (unknown) (no (unknown) (unknown) Creatinine 0.74 (units (unknown) date) unknown) (unknown) (no (unknown) (unknown) : 1945 (units (unknown) date) Acct:[id number] unknown) (unknown) (no (unknown) (unknown) Kimmy Gomez, (units (unknown) date) [Primary Care unknown) Provider] - (unknown) (no (unknown) (unknown) Date Patient (units (u nknown) date) Seen: 12/10/21 unknown) (unknown) (no (unknown) (unknown) Date of (units (unkno wn) date) admission: unknown) (unknown) (no (unknown) (unknown) Diet/Activity/Sergey (units (unknown) date) atments unknown) (unknown) (no (unknown) (unknown) Diet: Diet as (units ( unknown) date) Tolerated unknown) (unknown) (no (unknown) (unknown) Discharge Data (units (unknown) date) unknown) (unknown) (no (unknown) (unknown) Discharge Date: (units (unknown) date) 12/10/21 unknown) (unknown) (no (unknown) (unknown) Discharge Plan (units (unknown) date) unknown) (unknown) (no (unknown) (unknown) Discharge (units (unkn own) date) Providers unknown) (unknown) (no (unknown) (unknown) Discharge orders (units (unknown) date) + Medications unknown) (unknown) (no (unknown) (unknown) Discharge (units (unkn own) date) provider: unknown) (unknown) (no (unknown) (unknown) Discontinued (units (u nknown) date) unknown) (unknown) (no (unknown) (unknown) Eos # (Auto) 200 (units (unknown) date) unknown) (unknown) (no (unknown) (unknown) Eos % (Auto) 3.2 (units (unknown) date) unknown) (unknown) (no (unknown) (unknown) Estimated GFR > (units (unknown) date) 60 unknown) (unknown) (no (unknown) (unknown) Exam (units (unkno wn) date) unknown) (unknown) (no (unknown) (unknown) Exam Narrative: (units (unknown) date) unknown) (unknown) (no (unknown) (unknown) Extremities: No (units (unknown) date) edema or joint unknown) effusions. No cyanosis or clubbing. (unknown) (no (unknown) (unknown) Family History (units (unknown) date) (Updated 12/08/21 unknown) @ 13:50 by Aditya Tapia DO) (unknown) (no (unknown) (unknown) Father (units (unkno wn) date) Hypertension unknown) (unknown) (no (unknown) (unknown) Follow (units (unkno wn) date) up/Referrals: unknown) (unknown) (no (unknown) (unknown) General:? Patient (units (unknown) date) is well developed unknown) and well nourished, more pleasant today (unknown) (no (unknown) (unknown) Globulin 2.5 (units (unknown) date) unknown) (unknown) (no (unknown) (unknown) Glucose 123 H (units (unknown) date) unknown) (unknown) (no (unknown) (unknown) H/O arthroscopic (units (unknown) date) knee surgery unknown) (11/14/17) (unknown) (no (unknown) (unknown) HEENT:? (units (unkno wn) date) Normocephalic,smal unknown) l abrasion to nose, extraocular muscles intact, oral (unknown) (no (unknown) (unknown) Hct 39.6 L (units (un known) date) unknown) (unknown) (no (unknown) (unknown) Hgb 13.7 (units (unkn own) date) unknown) (unknown) (no (unknown) (unknown) History of (units (unk nown) date) Present Illness unknown) (unknown) (no (unknown) (unknown) History of aortic (units (unknown) date) dissection unknown) () (unknown) (no (unknown) (unknown) History of (units (unk nown) date) arthroplasty of unknown) right knee (unknown) (no (unknown) (unknown) History of (units (unk nown) date) bilateral total unknown) hip arthroplasty (unknown) (no (unknown) (unknown) History of (units (unk nown) date) cardiac cath unknown) () (unknown) (no (unknown) (unknown) History of (units (unk nown) date) esophageal surgery unknown) (unknown) (no (unknown) (unknown) History of (units (unk nown) date) incision and unknown) drainage (-2016) (unknown) (no (unknown) (unknown) History of prior (units (unknown) date) ablation treatment unknown) (-03/2017) (unknown) (no (unknown) (unknown) History of (units (unk nown) date) surgery unknown) (unknown) (no (unknown) (unknown) Hx of (units (unkno wn) date) cholecystectomy unknown) (unknown) (no (unknown) (unknown) Hx of hernia (units (u nknown) date) repair unknown) (unknown) (no (unknown) (unknown) Hx of sinus (units (un known) date) surgery unknown) (unknown) (no (unknown) (unknown) Hypertension (units (u nknown) date) unknown) (unknown) (no (unknown) (unknown) In the emergency (units (unknown) date) room, the patient unknown) was given phenobarbital with some improvement (unknown) (no (unknown) (unknown) Instructions: DI (units (unknown) date) for Iron unknown) Deficiency Anemia-Adult, DI for Nausea -- Adult (unknown) (no (unknown) (unknown) Ischemic (units (unkno wn) date) cardiomyopathy unknown) (unknown) (no (unknown) (unknown) Labs (units (unkno wn) date) unknown) (unknown) (no (unknown) (unknown) Labs: (units (unkno wn) date) unknown) (unknown) (no (unknown) (unknown) Lungs:? CTA b/l (units (unknown) date) no wheezing unknown) rhonchi or rales. (unknown) (no (unknown) (unknown) Lymph # (Auto) (units (unknown) date) 1500 unknown) (unknown) (no (unknown) (unknown) Lymph % (Auto) (units (unknown) date) 22.7 L unknown) (unknown) (no (unknown) (unknown) MCH 31.8 (units (unkn own) date) unknown) (unknown) (no (unknown) (unknown) MCHC 34.6 (units (unk nown) date) unknown) (unknown) (no (unknown) (unknown) MCV 91.9 (units (unkn own) date) unknown) (unknown) (no (unknown) (unknown) Magnesium 2.1 (units (unknown) date) unknown) (unknown) (no (unknown) (unknown) Medical History (units (unknown) date) (Reviewed 12/08/21 unknown) @ 13:50 by Aditya Tapia DO) (unknown) (no (unknown) (unknown) [place] # (Auto) (units ( unknown) date) 800 unknown) (unknown) (no (unknown) (unknown) [place] % (Auto) (units ( unknown) date) 11.9 unknown) (unknown) (no (unknown) (unknown) Mother (units (unknown) date) Stroke unknown) (unknown) (no (unknown) (unknown) Musculoskeletal:? (units (unknown) date) Muscle strength unknown) and tone are equal within normal limits, no (unknown) (no (unknown) (unknown) Narcotic (units (unkno wn) date) dependence unknown) (unknown) (no (unknown) (unknown) Narrative (units (unkn own) date) unknown) (unknown) (no (unknown) (unknown) Narrative: (units (unk nown) date) unknown) (unknown) (no (unknown) (unknown) Neck pain, (units (unk nown) date) chronic unknown) (unknown) (no (unknown) (unknown) Neck: supple and (units (unknown) date) symmetric, trachea unknown) is midline, no cervical adenopathy. Negative (unknown) (no (unknown) (unknown) Neuro:? Alert and (units (unknown) date) orientated unknown) x3,?slightly tangential, no tongue fasciculations (unknown) (no (unknown) (unknown) Neut # (Auto) (units ( unknown) date) 4100 unknown) (unknown) (no (unknown) (unknown) Neut % (Auto) (units ( unknown) date) 61.4 unknown) (unknown) (no (unknown) (unknown) Objective (units (unkn own) date) unknown) (unknown) (no (unknown) (unknown) Oxygen Delivery (units (unknown) date) Method Room Air unknown) (unknown) (no (unknown) (unknown) Oxygen Flow Rate (units (unknown) date) 0 unknown) (unknown) (no (unknown) (unknown) PFSH (units (unkno wn) date) unknown) (unknown) (no (unknown) (unknown) Patient (units (unkno wn) date) Disposition: Home unknown) (unknown) (no (unknown) (unknown) Patient: (units (unkno wn) date) Dominic Viveros unknown) MR#: M (unknown) (no (unknown) (unknown) Plt Count 188 (units (unknown) date) unknown) (unknown) (no (unknown) (unknown) Potassium 3.8 (units (unknown) date) unknown) (unknown) (no (unknown) (unknown) Prescriptions: (units (unknown) date) unknown) (unknown) (no (unknown) (unknown) Primary Care (units (u nknown) date) Provider: unknown) Kimmy Gomez (unknown) (no (unknown) (unknown) Primary care (units (u nknown) date) physician: unknown) (unknown) (no (unknown) (unknown) Provider (units (unkno wn) date) unknown) (unknown) (no (unknown) (unknown) Provider (units (unkno wn) date) Discharge Comment: unknown) You were admitted to the hospital with alcohol (unknown) (no (unknown) (unknown) Provider: (units (unkn own) date) Aditya Tapia unknown) D.O. (unknown) (no (unknown) (unknown) Pulse Oximetry (units (unknown) date) 94 unknown) (unknown) (no (unknown) (unknown) Pulse Oximetry 94 (units (unknown) date) 94 93 unknown) (unknown) (no (unknown) (unknown) Pulse Rate 95 H (units (unknown) date) unknown) (unknown) (no (unknown) (unknown) Pulse Rate 85 86 (units (unknown) date) unknown) (unknown) (no (unknown) (unknown) RBC 4.31 L (units (un known) date) unknown) (unknown) (no (unknown) (unknown) RDW 13.3 (units (unkn own) date) unknown) (unknown) (no (unknown) (unknown) Respiratory Rate (units (unknown) date) 15 unknown) (unknown) (no (unknown) (unknown) Respiratory Rate (units (unknown) date) 17 19 unknown) (unknown) (no (unknown) (unknown) Result Diagrams: (units (unknown) date) unknown) (unknown) (no (unknown) (unknown) Aditya Tapia, (units (unknown) date) DO unknown) (unknown) (no (unknown) (unknown) S/P CABG x 3 (units (u nknown) date) (-08/2007) unknown) (unknown) (no (unknown) (unknown) S/P cervical (units (u nknown) date) spinal fusion unknown) (unknown) (no (unknown) (unknown) S/P lumbar fusion (units (unknown) date) unknown) (unknown) (no (unknown) (unknown) Signed By: (units (unk nown) date) unknown) (unknown) (no (unknown) (unknown) Skin:? Pale,? (units ( unknown) date) Warm to touch,dry unknown) and intact without rashes, ulcerations or (unknown) (no (unknown) (unknown) Smoking Status: (units (unknown) date) Former smoker unknown) (unknown) (no (unknown) (unknown) Social History (units (unknown) date) (Reviewed 12/08/21 unknown) @ 01:57 by Jung Dejesus DO) (unknown) (no (unknown) (unknown) Sodium 137 (units (u nknown) date) unknown) (unknown) (no (unknown) (unknown) Summary (units (unkno wn) date) unknown) (unknown) (no (unknown) (unknown) Surgical History (units (unknown) date) (Reviewed 12/08/21 unknown) @ 13:50 by Aditya Tapia DO) (unknown) (no (unknown) (unknown) Temperature 97.6 (units (unknown) date) F unknown) (unknown) (no (unknown) (unknown) Temperature 98.1 (units (unknown) date) F unknown) (unknown) (no (unknown) (unknown) This is a 76 year (units (unknown) date) old male with PMH unknown) of afib, CAD, prior aortic dissection, (unknown) (no (unknown) (unknown) Time Patient (units (u nknown) date) Seen: 10:10 unknown) (unknown) (no (unknown) (unknown) Time Spent with (units (unknown) date) Patient unknown) (unknown) (no (unknown) (unknown) Time spent: (units (un known) date) Greater than 30 unknown) minutes (unknown) (no (unknown) (unknown) Total Bilirubin (units (unknown) date) 1.4 H unknown) (unknown) (no (unknown) (unknown) Total Protein (units ( unknown) date) 6.1 L unknown) (unknown) (no (unknown) (unknown) Ventricular (units (un known) date) bigeminy unknown) (unknown) (no (unknown) (unknown) Visit (units (unkno wn) date) Report/Discharge unknown) Packet (unknown) (no (unknown) (unknown) Vital Signs (units (un known) date) unknown) (unknown) (no (unknown) (unknown) WBC 6.7 (units (unkno wn) date) unknown) (unknown) (no (unknown) (unknown) [Embedded Image (units (unknown) date) Not Available] unknown) (unknown) (no (unknown) (unknown) alcohol intake: (units (unknown) date) current unknown) (unknown) (no (unknown) (unknown) any prior (units (unkn own) date) seizures from unknown) alcohol withdrawal. He states that he ran out of (unknown) (no (unknown) (unknown) chronic low back (units (unknown) date) pain who presented unknown) after a fall. He had been drinking last (unknown) (no (unknown) (unknown) consciousness and (units (unknown) date) he had no nausea unknown) or vomiting, chest pain, palpitations, (unknown) (no (unknown) (unknown) deformity. Back (units (unknown) date) midline incision unknown) well appearing and well healed. (unknown) (no (unknown) (unknown) denies any (units (unk nown) date) shaking or unknown) withdrawal symptoms when he stops drinking, and he denies (unknown) (no (unknown) (unknown) did drink (units (unkno wn) date) yesterday evening, unknown) he does not think that he drinks that much. He did (unknown) (no (unknown) (unknown) equal chest rise (units (unknown) date) bilaterally. unknown) (unknown) (no (unknown) (unknown) evaluation was (units (unknown) date) unremarkable, unknown) urinalysis was unremarkable, urine drug screen was (unknown) (no (unknown) (unknown) for JVD (units (unkno wn) date) unknown) (unknown) (no (unknown) (unknown) hand (units (unkno wn) date) unknown) (unknown) (no (unknown) (unknown) household (units (unkn own) date) members: spouse unknown) (unknown) (no (unknown) (unknown) important to (units (u nknown) date) avoid while on unknown) opiate pain medications and sleeping medication. (unknown) (no (unknown) (unknown) in his symptoms, (units (unknown) date) he did remain more unknown) hypertensive with nausea and vomiting but (unknown) (no (unknown) (unknown) nausea and (units (unkn own) date) vomiting that was unknown) reportedly intractable. The patient states that he (unknown) (no (unknown) (unknown) night when he (units ( unknown) date) stumbled and fell unknown) forward, striking his nose. He denied loss of (unknown) (no (unknown) (unknown) not further (units (un known) date) quantify how much unknown) he drinks every day when asked directly. He (unknown) (no (unknown) (unknown) or tremulousness (units (unknown) date) today. unknown) (unknown) (no (unknown) (unknown) petechiae.? (units (un known) date) unknown) (unknown) (no (unknown) (unknown) pharynx is clear (units (unknown) date) and mucous unknown) membranes are moist. (unknown) (no (unknown) (unknown) positive for (units (u nknown) date) opiates and unknown) benzodiazepines. Alcohol level was 111. COVID-19 (unknown) (no (unknown) (unknown) shortness of (units (u nknown) date) breath. In the unknown) emergency room, the patient was hypertensive, with (unknown) (no (unknown) (unknown) substance use (units ( unknown) date) type: does not unknown) use (unknown) (no (unknown) (unknown) testing was (units (un known) date) negative. Patient unknown) was admitted for further management of alcohol (unknown) (no (unknown) (unknown) that he had been (units (unknown) date) on clonidine unknown) recently from his PCP. Initial laboratory (unknown) (no (unknown) (unknown) this improved with (units (unknown) date) Ativan that was unknown) given in the emergency room. It also appears (unknown) (no (unknown) (unknown) trazodone and had (units (unknown) date) not slept in 2 unknown) days at home, and this is why he drank (unknown) (no (unknown) (unknown) withdrawal (units (unk nown) date) unknown) (unknown) (no (unknown) (unknown) withdrawal. You (units (unknown) date) improved with unknown) medications. Avoid alcohol in the future, more (unknown) (no (unknown) (unknown) yesterday (units (unkn own) date) evening. unknown) Result panel 68 (unknown) (no (unknown) (unknown) (no value) (units (unk nown) date) unknown) (unknown) (no (unknown) (unknown) Date of Service: (units (unknown) date) 12/08/21 unknown) (unknown) (no (unknown) (unknown) (no value) (units (unk nown) date) unknown) (unknown) (no (unknown) (unknown) - (units (unkno wn) date) unknown) (unknown) (no (unknown) (unknown) 0.2 mg PO TID 0RF (units (unknown) date) unknown) (unknown) (no (unknown) (unknown) 12/10/21 07:26 (units (unknown) date) unknown) (unknown) (no (unknown) (unknown) 1 puff INHALATION (units (unknown) date) Q4-6H PRN (Reason: unknown) shortness of breath or wheezing) Qty: 15 (unknown) (no (unknown) (unknown) 1 spray (units (unkno wn) date) Intranasal DAILY unknown) PRN (Reason: Allergy Symptoms) Qty: 0 0RF (unknown) (no (unknown) (unknown) 1 tab PO DAILY (units (unknown) date) Qty: 0 0RF unknown) (unknown) (no (unknown) (unknown) 1 tab PO Q6HR PRN (units (unknown) date) (Reason: Back unknown) Pain) 0RF (unknown) (no (unknown) (unknown) 1 tab PO Q8H PRN (units (unknown) date) (Reason: pain) unknown) Qty: 10 0RF (unknown) (no (unknown) (unknown) 1 tab PO TID PRN (units (unknown) date) (Reason: pain) unknown) Qty: 10 0RF (unknown) (no (unknown) (unknown) 10 mg PO DAILY (units (unknown) date) 0RF unknown) (unknown) (no (unknown) (unknown) 10 mg PO Q4-5H (units (unknown) date) PRN (Reason: Pain, unknown) Severe (7-10)) 7 Days Qty: 60 0RF (unknown) (no (unknown) (unknown) 100 mg PO DAILY (units (unknown) date) 0RF unknown) (unknown) (no (unknown) (unknown) 100 mg PO TID PRN (units (unknown) date) (Reason: cough) unknown) Qty: 14 0RF (unknown) (no (unknown) (unknown) 2 g topical QID (units (unknown) date) Qty: 100 0RF unknown) (unknown) (no (unknown) (unknown) 2.5 mg PO DAILY (units (unknown) date) 0RF unknown) (unknown) (no (unknown) (unknown) 2.5 mg inhalation (units (unknown) date) QID Qty: 90 1RF unknown) (unknown) (no (unknown) (unknown) 20 mg PO DAILY (units (unknown) date) Qty: 32 0RF unknown) (unknown) (no (unknown) (unknown) 25 mg PO QID PRN (units (unknown) date) (Reason: vertigo) unknown) Qty: 30 0RF (unknown) (no (unknown) (unknown) 3 ml Inhalation (units (unknown) date) Q6H PRN (Reason: unknown) Shortness Of Breath) 0RF (unknown) (no (unknown) (unknown) 300 mg PO BID (units ( unknown) date) Qty: 20 0RF unknown) (unknown) (no (unknown) (unknown) 325 mg PO DAILY (units (unknown) date) 0RF unknown) (unknown) (no (unknown) (unknown) 40 mg PO DAILY (units (unknown) date) 0RF unknown) (unknown) (no (unknown) (unknown) 400 tab PO (units (unk nown) date) BEDTIME 30 Days unknown) Qty: 120 0RF (unknown) (no (unknown) (unknown) 50 mg PO DAILY (units (unknown) date) Qty: 5 0RF unknown) (unknown) (no (unknown) (unknown) 500 mg PO Q8H PRN (units (unknown) date) (Reason: muscle unknown) spasm) Qty: 14 0RF (unknown) (no (unknown) (unknown) 60mg x 5 day, (units ( unknown) date) 40mg x 5 day, 20mg unknown) x5 day, 10mg x 4 days (unknown) (no (unknown) (unknown) 650 mg PO Q6H PRN (units (unknown) date) (Reason: pain) unknown) Qty: 60 0RF (unknown) (no (unknown) (unknown) Comment: (units (unkno wn) date) unknown) (unknown) (no (unknown) (unknown) Discharge Summary (units (unknown) date) unknown) (unknown) (no (unknown) (unknown) INHALE 1 VIAL PER (units (unknown) date) NEBULIZER EVERY 6 unknown) HOURS NEEDED (unknown) (no (unknown) (unknown) [facility] (units (unknown) date) [address] [place] [address] unknown) [place] [address] (unknown) (no (unknown) (unknown) Label Comments: (units (unknown) date) unknown) (unknown) (no (unknown) (unknown) Laboratory (units (unk nown) date) Results - last 24 unknown) hr (unknown) (no (unknown) (unknown) Physician (units (unkn own) date) Instructions: unknown) Evaluate and Treat (unknown) (no (unknown) (unknown) Physician (units (unkn own) date) Instructions: unknown) Evaluate and treat (unknown) (no (unknown) (unknown) Reason For Exam: (units (unknown) date) based on admit unknown) nutrition assessment (unknown) (no (unknown) (unknown) Rx Instructions: (units (unknown) date) unknown) (unknown) (no (unknown) (unknown) Spouse Milana (units (u nknown) date) called + reported unknown) patient not taking it regularly. (unknown) (no (unknown) (unknown) apply to single (units (unknown) date) elbow, wrist or unknown) hand; for hand includes palm/fingers/back of (unknown) (no (unknown) (unknown) take 1 tablet by (units (unknown) date) mouth once daily unknown) (unknown) (no (unknown) (unknown) take 1 tablet by (units (unknown) date) mouth twice a day unknown) (unknown) (no (unknown) (unknown) (no value) (units (unk nown) date) unknown) (unknown) (no (unknown) (unknown) 12/10/21 12/10/21 (units (unknown) date) unknown) (unknown) (no (unknown) (unknown) 07:26 07:26 (units (un known) date) unknown) (unknown) (no (unknown) (unknown) Zyrtec 10 mg (units (u nknown) date) Capsule unknown) (unknown) (no (unknown) (unknown) acetaminophen (units ( unknown) date) [Athenol] 325 mg unknown) tablet (unknown) (no (unknown) (unknown) acetaminophen-cod (units (unknown) date) eine 300-30 mg unknown) tablet (unknown) (no (unknown) (unknown) albuterol sulfate (units (unknown) date) 1.25 mg/3 mL unknown) solution for nebulization (unknown) (no (unknown) (unknown) benzonatate (units (un known) date) [Tessalon Perles] unknown) 100 mg capsule (unknown) (no (unknown) (unknown) cefdinir 300 mg (units (unknown) date) capsule unknown) (unknown) (no (unknown) (unknown) clonidine HCl 0.1 (units (unknown) date) mg tablet unknown) (unknown) (no (unknown) (unknown) diclofenac sodium (units (unknown) date) 1 % gel unknown) (unknown) (no (unknown) (unknown) ferrous sulfate (units (unknown) date) 325 mg (65 mg unknown) iron) tablet,delayed release (DR/EC) (unknown) (no (unknown) (unknown) fluticasone (units (un known) date) propionate 16 GM unknown) spray,suspension (unknown) (no (unknown) (unknown) furosemide (units (unk nown) date) [Lasix] 40 mg unknown) tablet (unknown) (no (unknown) (unknown) glipizide (units (unkn own) date) [Glucotrol XL] 2.5 unknown) mg tablet extended release 24 hr (unknown) (no (unknown) (unknown) levalbuterol HCl (units (unknown) date) 1.25 mg/3 mL unknown) solution for nebulization (unknown) (no (unknown) (unknown) levalbuterol (units (u nknown) date) tartrate [Xopenex unknown) HFA] 45 mcg/actuation HFA aerosol inhaler (unknown) (no (unknown) (unknown) lisinopril 10 mg (units (unknown) date) tablet unknown) (unknown) (no (unknown) (unknown) meclizine 25 mg (units (unknown) date) tablet unknown) (unknown) (no (unknown) (unknown) methocarbamol 500 (units (unknown) date) mg tablet unknown) (unknown) (no (unknown) (unknown) metoprolol (units (unk nown) date) tartrate 100 mg unknown) tablet (unknown) (no (unknown) (unknown) multivitamin (units (u nknown) date) [Multiple unknown) Vitamins] 1 EACH tablet (unknown) (no (unknown) (unknown) oxycodone 5 mg (units (unknown) date) Tablet unknown) (unknown) (no (unknown) (unknown) oxycodone-acetami (units (unknown) date) nophen [Percocet] unknown) 5-325 mg tablet (unknown) (no (unknown) (unknown) prednisone 20 mg (units (unknown) date) tablet unknown) (unknown) (no (unknown) (unknown) prednisone 50 mg (units (unknown) date) tablet unknown) (unknown) (no (unknown) (unknown) trazodone 100 mg (units (unknown) date) tablet unknown) (unknown) (no (unknown) (unknown) 12/10/21 (units (unkno wn) date) unknown) (unknown) (no (unknown) (unknown) (past 8 hours): (units (unknown) date) unknown) (unknown) (no (unknown) (unknown) [id number] (units (unkn own) date) unknown) (unknown) (no (unknown) (unknown) 03:00 12/10/21 (units (unknown) date) unknown) (unknown) (no (unknown) (unknown) 03:40 12/10/21 (units (unknown) date) unknown) (unknown) (no (unknown) (unknown) 04:11 (units (unkno wn) date) unknown) (unknown) (no (unknown) (unknown) 04:42 12/10/21 (units (unknown) date) unknown) (unknown) (no (unknown) (unknown) 12/08/21 08:04 (units (unknown) date) unknown) (unknown) (no (unknown) (unknown) 12/08/21 12:38 (units (unknown) date) unknown) (unknown) (no (unknown) (unknown) 12/08/21 13:57 (units (unknown) date) unknown) (unknown) (no (unknown) (unknown) 08:00 12/10/21 (units (unknown) date) unknown) (unknown) (no (unknown) (unknown) 09:44 (units (unkno wn) date) unknown) (unknown) (no (unknown) (unknown) 0RF (units (unkno wn) date) unknown) (unknown) (no (unknown) (unknown) 1. alcohol (units (unk nown) date) withdrawal unknown) (unknown) (no (unknown) (unknown) 2. ground level (units (unknown) date) fall unknown) (unknown) (no (unknown) (unknown) 3. Paroxysmal (units ( unknown) date) atrial unknown) fibrillation (unknown) (no (unknown) (unknown) 4. History of CAD (units (unknown) date) and prior unknown) dissection (unknown) (no (unknown) (unknown) 5. Chronic low (units (unknown) date) back pain unknown) (unknown) (no (unknown) (unknown) 6. Insomnia (units (un known) date) unknown) (unknown) (no (unknown) (unknown) ?- continue home (units (unknown) date) trazodone 300 mg unknown) at bedtime with additional 100 mg prn. (unknown) (no (unknown) (unknown) ?- continue (units (un known) date) oxycodone 10 mg unknown) prn, sent a 7 day prescription for the patient on (unknown) (no (unknown) (unknown) ?- continued home (units (unknown) date) medications unknown) (unknown) (no (unknown) (unknown) ?- low risk for (units (unknown) date) severe withdrawal unknown) based on reported history. However I suspect (unknown) (no (unknown) (unknown) ?- sinus rhythm (units (unknown) date) on EKG with unknown) multiple PACs. Continued home medications (unknown) (no (unknown) (unknown) ?- suspect poorly (units (unknown) date) controlled back unknown) pain is leading to his drinking somewhat. (unknown) (no (unknown) (unknown) ?- suspect some (units (unknown) date) ataxia due to unknown) chronic alcohol use. appreciate PT/OT evaluations, (unknown) (no (unknown) (unknown) ALT 29 (units (unkno wn) date) unknown) (unknown) (no (unknown) (unknown) AST 26 (units (unkno wn) date) unknown) (unknown) (no (unknown) (unknown) Abdomen: S NT ND. (units (unknown) date) unknown) (unknown) (no (unknown) (unknown) Achalasia (units (unkn own) date) unknown) (unknown) (no (unknown) (unknown) Activity: As (units (u nknown) date) tolerated unknown) (unknown) (no (unknown) (unknown) Age/Sex: 76 / M (units (unknown) date) unknown) (unknown) (no (unknown) (unknown) Albumin 3.6 (units ( unknown) date) unknown) (unknown) (no (unknown) (unknown) Albumin/Globulin (units (unknown) date) Ratio 1.4 unknown) (unknown) (no (unknown) (unknown) Alkaline (units (unkno wn) date) Phosphatase 50 unknown) (unknown) (no (unknown) (unknown) Anginal pain (units (u nknown) date) unknown) (unknown) (no (unknown) (unknown) Kimmy Gomez, (units (unknown) date) MD unknown) (unknown) (no (unknown) (unknown) Asthma (units (unkno wn) date) unknown) (unknown) (no (unknown) (unknown) Atrial (units (unkno wn) date) fibrillation unknown) (unknown) (no (unknown) (unknown) BUN 18 (units (unkno wn) date) unknown) (unknown) (no (unknown) (unknown) BUN/Creatinine (units (unknown) date) Ratio 24.3 H unknown) (unknown) (no (unknown) (unknown) Baso # (Auto) (units ( unknown) date) 100 unknown) (unknown) (no (unknown) (unknown) Baso % (Auto) (units ( unknown) date) 0.8 unknown) (unknown) (no (unknown) (unknown) Blood Pressure (units (unknown) date) 132/61 unknown) (unknown) (no (unknown) (unknown) Blood Pressure (units (unknown) date) 163/81 H 163/81 H unknown) (unknown) (no (unknown) (unknown) COPD (chronic (units ( unknown) date) obstructive unknown) pulmonary disease) (unknown) (no (unknown) (unknown) Calcium 8.2 L (units (unknown) date) unknown) (unknown) (no (unknown) (unknown) Carbon Dioxide (units (unknown) date) 32 unknown) (unknown) (no (unknown) (unknown) Cardio:?RRR no (units (unknown) date) m/r/g. unknown) (unknown) (no (unknown) (unknown) Cervical spinal (units (unknown) date) stenosis unknown) (unknown) (no (unknown) (unknown) Chest:? Normal AP (units (unknown) date) diameter and unknown) contour without kyphoscoliosis, no tachypnea, (unknown) (no (unknown) (unknown) Chief complaint: (units (unknown) date) Back Pain unknown) (unknown) (no (unknown) (unknown) Chloride 103 (units (unknown) date) unknown) (unknown) (no (unknown) (unknown) 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 (10/22/16) (unknown) (no (unknown) (unknown) Consult to (units (unk nown) date) Dietitian, Adult unknown) Routine (unknown) (no (unknown) (unknown) Consult to (units (unk nown) date) Occupational unknown) Therapy Evaluate + Treat (unknown) (no (unknown) (unknown) Consult to (units (unk nown) date) Physical Therapy unknown) Evaluate + Treat (unknown) (no (unknown) (unknown) Consults: (units (unkn own) date) unknown) (unknown) (no (unknown) (unknown) Continued (units (unkn own) date) unknown) (unknown) (no (unknown) (unknown) Coronary artery (units (unknown) date) disease unknown) (unknown) (no (unknown) (unknown) Creatinine 0.74 (units (unknown) date) unknown) (unknown) (no (unknown) (unknown) : 1945 (units (unknown) date) Acct:[id number] unknown) (unknown) (no (unknown) (unknown) Kimmy Gomez, (units (unknown) date) [Primary Care unknown) Provider] - (unknown) (no (unknown) (unknown) Date Patient (units (u nknown) date) Seen: 12/10/21 unknown) (unknown) (no (unknown) (unknown) Date of (units (unkno wn) date) admission: unknown) (unknown) (no (unknown) (unknown) Diet/Activity/Sergey (units (unknown) date) atments unknown) (unknown) (no (unknown) (unknown) Diet: Diet as (units ( unknown) date) Tolerated unknown) (unknown) (no (unknown) (unknown) Discharge Data (units (unknown) date) unknown) (unknown) (no (unknown) (unknown) Discharge Date: (units (unknown) date) 12/10/21 unknown) (unknown) (no (unknown) (unknown) Discharge (units (unkn own) date) Diagnosis: unknown) (unknown) (no (unknown) (unknown) Discharge Plan (units (unknown) date) unknown) (unknown) (no (unknown) (unknown) Discharge (units (unkn own) date) Providers unknown) (unknown) (no (unknown) (unknown) Discharge orders (units (unknown) date) + Medications unknown) (unknown) (no (unknown) (unknown) Discharge (units (unkn own) date) provider: unknown) (unknown) (no (unknown) (unknown) Discontinued (units (u nknown) date) unknown) (unknown) (no (unknown) (unknown) Eos # (Auto) 200 (units (unknown) date) unknown) (unknown) (no (unknown) (unknown) Eos % (Auto) 3.2 (units (unknown) date) unknown) (unknown) (no (unknown) (unknown) Estimated GFR > (units (unknown) date) 60 unknown) (unknown) (no (unknown) (unknown) Exam (units (unkno wn) date) unknown) (unknown) (no (unknown) (unknown) Exam Narrative: (units (unknown) date) unknown) (unknown) (no (unknown) (unknown) Extremities: No (units (unknown) date) edema or joint unknown) effusions. No cyanosis or clubbing. (unknown) (no (unknown) (unknown) Family History (units (unknown) date) (Updated 12/08/21 unknown) @ 13:50 by Aditya Tapia DO) (unknown) (no (unknown) (unknown) Father (units (unkno wn) date) Hypertension unknown) (unknown) (no (unknown) (unknown) Follow (units (unkno wn) date) up/Referrals: unknown) (unknown) (no (unknown) (unknown) General:? Patient (units (unknown) date) is well developed unknown) and well nourished, more pleasant today (unknown) (no (unknown) (unknown) Globulin 2.5 (units (unknown) date) unknown) (unknown) (no (unknown) (unknown) Glucose 123 H (units (unknown) date) unknown) (unknown) (no (unknown) (unknown) H/O arthroscopic (units (unknown) date) knee surgery unknown) (11/14/17) (unknown) (no (unknown) (unknown) HEENT:? (units (unkno wn) date) Normocephalic,smal unknown) l abrasion to nose, extraocular muscles intact, oral (unknown) (no (unknown) (unknown) Hct 39.6 L (units (un known) date) unknown) (unknown) (no (unknown) (unknown) He declined (units (un known) date) alcoholic unknown) cessation resources at this time. (unknown) (no (unknown) (unknown) Hgb 13.7 (units (unkn own) date) unknown) (unknown) (no (unknown) (unknown) History of (units (unk nown) date) Present Illness unknown) (unknown) (no (unknown) (unknown) History of aortic (units (unknown) date) dissection unknown) () (unknown) (no (unknown) (unknown) History of (units (unk nown) date) arthroplasty of unknown) right knee (unknown) (no (unknown) (unknown) History of (units (unk nown) date) bilateral total unknown) hip arthroplasty (unknown) (no (unknown) (unknown) History of (units (unk nown) date) cardiac cath unknown) () (unknown) (no (unknown) (unknown) History of (units (unk nown) date) esophageal surgery unknown) (unknown) (no (unknown) (unknown) History of (units (unk nown) date) incision and unknown) drainage () (unknown) (no (unknown) (unknown) History of prior (units (unknown) date) ablation treatment unknown) () (unknown) (no (unknown) (unknown) History of (units (unk nown) date) surgery unknown) (unknown) (no (unknown) (unknown) Hospital Course (units (unknown) date) unknown) (unknown) (no (unknown) (unknown) Hospital Course: (units (unknown) date) unknown) (unknown) (no (unknown) (unknown) Hx of (units (unkno wn) date) cholecystectomy unknown) (unknown) (no (unknown) (unknown) Hx of hernia (units (u nknown) date) repair unknown) (unknown) (no (unknown) (unknown) Hx of sinus (units (un known) date) surgery unknown) (unknown) (no (unknown) (unknown) Hypertension (units (u nknown) date) unknown) (unknown) (no (unknown) (unknown) In the emergency (units (unknown) date) room, the patient unknown) was given phenobarbital with some improvement (unknown) (no (unknown) (unknown) Instructions: DI (units (unknown) date) for Iron unknown) Deficiency Anemia-Adult, DI for Nausea -- Adult (unknown) (no (unknown) (unknown) Ischemic (units (unkno wn) date) cardiomyopathy unknown) (unknown) (no (unknown) (unknown) Labs (units (unkno wn) date) unknown) (unknown) (no (unknown) (unknown) Labs: (units (unkno wn) date) unknown) (unknown) (no (unknown) (unknown) Lungs:? CTA b/l (units (unknown) date) no wheezing unknown) rhonchi or rales. (unknown) (no (unknown) (unknown) Lymph # (Auto) (units (unknown) date) 1500 unknown) (unknown) (no (unknown) (unknown) Lymph % (Auto) (units (unknown) date) 22.7 L unknown) (unknown) (no (unknown) (unknown) MCH 31.8 (units (unkn own) date) unknown) (unknown) (no (unknown) (unknown) MCHC 34.6 (units (unk nown) date) unknown) (unknown) (no (unknown) (unknown) MCV 91.9 (units (unkn own) date) unknown) (unknown) (no (unknown) (unknown) Magnesium 2.1 (units (unknown) date) unknown) (unknown) (no (unknown) (unknown) Medical History (units (unknown) date) (Reviewed 12/08/21 unknown) @ 13:50 by Aditya Tapia DO) (unknown) (no (unknown) (unknown) [place] # (Auto) (units ( unknown) date) 800 unknown) (unknown) (no (unknown) (unknown) [place] % (Auto) (units ( unknown) date) 11.9 unknown) (unknown) (no (unknown) (unknown) Mother (units (unknown) date) Stroke unknown) (unknown) (no (unknown) (unknown) Musculoskeletal:? (units (unknown) date) Muscle strength unknown) and tone are equal within normal limits, no (unknown) (no (unknown) (unknown) Narcotic (units (unkno wn) date) dependence unknown) (unknown) (no (unknown) (unknown) Narrative (units (unkn own) date) unknown) (unknown) (no (unknown) (unknown) Narrative: (units (unk nown) date) unknown) (unknown) (no (unknown) (unknown) Neck pain, (units (unk nown) date) chronic unknown) (unknown) (no (unknown) (unknown) Neck: supple and (units (unknown) date) symmetric, trachea unknown) is midline, no cervical adenopathy. Negative (unknown) (no (unknown) (unknown) Neuro:? Alert and (units (unknown) date) orientated unknown) x3,?slightly tangential, no tongue fasciculations (unknown) (no (unknown) (unknown) Neut # (Auto) (units ( unknown) date) 4100 unknown) (unknown) (no (unknown) (unknown) Neut % (Auto) (units ( unknown) date) 61.4 unknown) (unknown) (no (unknown) (unknown) Objective (units (unkn own) date) unknown) (unknown) (no (unknown) (unknown) Oxygen Delivery (units (unknown) date) Method Room Air unknown) (unknown) (no (unknown) (unknown) Oxygen Flow Rate (units (unknown) date) 0 unknown) (unknown) (no (unknown) (unknown) PFSH (units (unkno wn) date) unknown) (unknown) (no (unknown) (unknown) Patient (units (unkno wn) date) Disposition: Home unknown) (unknown) (no (unknown) (unknown) Patient: (units (unkno wn) date) Dominic Viveros unknown) MR#: [id number] (unknown) (no (unknown) (unknown) Please see (units (unk nown) date) hospital course by unknown) problem list noted below: (unknown) (no (unknown) (unknown) Plt Count 188 (units (unknown) date) unknown) (unknown) (no (unknown) (unknown) Potassium 3.8 (units (unknown) date) unknown) (unknown) (no (unknown) (unknown) Prescription was (units (unknown) date) sent as well as unknown) the patient states he was out. He was (unknown) (no (unknown) (unknown) Prescriptions: (units (unknown) date) unknown) (unknown) (no (unknown) (unknown) Primary Care (units (u nknown) date) Provider: unknown) Kimmy Gomez (unknown) (no (unknown) (unknown) Primary care (units (u nknown) date) physician: unknown) (unknown) (no (unknown) (unknown) Provider (units (unkno wn) date) unknown) (unknown) (no (unknown) (unknown) Provider (units (unkno wn) date) Discharge Comment: unknown) You were admitted to the hospital with alcohol (unknown) (no (unknown) (unknown) Provider: (units (unkn own) date) Aditya Tapia unknown) D.O. (unknown) (no (unknown) (unknown) Pulse Oximetry (units (unknown) date) 94 unknown) (unknown) (no (unknown) (unknown) Pulse Oximetry 94 (units (unknown) date) 94 93 unknown) (unknown) (no (unknown) (unknown) Pulse Rate 95 H (units (unknown) date) unknown) (unknown) (no (unknown) (unknown) Pulse Rate 85 86 (units (unknown) date) unknown) (unknown) (no (unknown) (unknown) RBC 4.31 L (units (un known) date) unknown) (unknown) (no (unknown) (unknown) RDW 13.3 (units (unkn own) date) unknown) (unknown) (no (unknown) (unknown) Respiratory Rate (units (unknown) date) 15 unknown) (unknown) (no (unknown) (unknown) Respiratory Rate (units (unknown) date) 17 19 unknown) (unknown) (no (unknown) (unknown) Result Diagrams: (units (unknown) date) unknown) (unknown) (no (unknown) (unknown) Aditya Tapia, (units (unknown) date) DO unknown) (unknown) (no (unknown) (unknown) S/P CABG x 3 (units (u nknown) date) (-08/2007) unknown) (unknown) (no (unknown) (unknown) S/P cervical (units (u nknown) date) spinal fusion unknown) (unknown) (no (unknown) (unknown) S/P lumbar fusion (units (unknown) date) unknown) (unknown) (no (unknown) (unknown) Signed (units (unkno wn) date) By:<Electronically unknown) signed by Ijeoma OrozcoO.>12/10/21 9563 (unknown) (no (unknown) (unknown) Skin:? Pale,? (units ( unknown) date) Warm to touch,dry unknown) and intact without rashes, ulcerations or (unknown) (no (unknown) (unknown) Smoking Status: (units (unknown) date) Former smoker unknown) (unknown) (no (unknown) (unknown) Social History (units (unknown) date) (Reviewed 12/08/21 unknown) @ 01:57 by Jung Dejesus DO) (unknown) (no (unknown) (unknown) Sodium 137 (units (u nknown) date) unknown) (unknown) (no (unknown) (unknown) Summary (units (unkno wn) date) unknown) (unknown) (no (unknown) (unknown) Surgical History (units (unknown) date) (Reviewed 12/08/21 unknown) @ 13:50 by Aditya Tapia DO) (unknown) (no (unknown) (unknown) Temperature 97.6 (units (unknown) date) F unknown) (unknown) (no (unknown) (unknown) Temperature 98.1 (units (unknown) date) F unknown) (unknown) (no (unknown) (unknown) This is a 76 year (units (unknown) date) old male with PMH unknown) of afib, CAD, prior aortic dissection, (unknown) (no (unknown) (unknown) Time Patient (units (u nknown) date) Seen: 10:10 unknown) (unknown) (no (unknown) (unknown) Time Spent with (units (unknown) date) Patient unknown) (unknown) (no (unknown) (unknown) Time spent: (units (un known) date) Greater than 30 unknown) minutes (unknown) (no (unknown) (unknown) Total Bilirubin (units (unknown) date) 1.4 H unknown) (unknown) (no (unknown) (unknown) Total Protein (units ( unknown) date) 6.1 L unknown) (unknown) (no (unknown) (unknown) Ventricular (units (un known) date) bigeminy unknown) (unknown) (no (unknown) (unknown) Visit (units (unkno wn) date) Report/Discharge unknown) Packet (unknown) (no (unknown) (unknown) Vital Signs (units (un known) date) unknown) (unknown) (no (unknown) (unknown) WBC 6.7 (units (unkno wn) date) unknown) (unknown) (no (unknown) (unknown) [Embedded Image (units (unknown) date) Not Available] unknown) (unknown) (no (unknown) (unknown) alcohol intake: (units (unknown) date) current unknown) (unknown) (no (unknown) (unknown) any prior (units (unkn own) date) seizures from unknown) alcohol withdrawal. He states that he ran out of (unknown) (no (unknown) (unknown) chronic low back (units (unknown) date) pain who presented unknown) after a fall. He had been drinking last (unknown) (no (unknown) (unknown) chronic low back (units (unknown) date) pain, insomnia, unknown) and alcohol use who presented after a fall.? He (unknown) (no (unknown) (unknown) consciousness and (units (unknown) date) he had no nausea unknown) or vomiting, chest pain, palpitations, (unknown) (no (unknown) (unknown) deformity. Back (units (unknown) date) midline incision unknown) well appearing and well healed. (unknown) (no (unknown) (unknown) denies any (units (unk nown) date) shaking or unknown) withdrawal symptoms when he stops drinking, and he denies (unknown) (no (unknown) (unknown) did drink (units (unkno wn) date) yesterday evening, unknown) he does not think that he drinks that much. He did (unknown) (no (unknown) (unknown) discharge. (units (unk nown) date) unknown) (unknown) (no (unknown) (unknown) due to confounding (units (unknown) date) behavior / unknown) aggression. He was treated with librium, ativan as (unknown) (no (unknown) (unknown) encouraged to (units ( unknown) date) follow up with his unknown) PCP for continued medications. (unknown) (no (unknown) (unknown) equal chest rise (units (unknown) date) bilaterally. unknown) (unknown) (no (unknown) (unknown) evaluation was (units (unknown) date) unremarkable, unknown) urinalysis was unremarkable, urine drug screen was (unknown) (no (unknown) (unknown) for JVD (units (unkno wn) date) unknown) (unknown) (no (unknown) (unknown) hand (units (unkno wn) date) unknown) (unknown) (no (unknown) (unknown) he drinks more (units (unknown) date) than he is unknown) currently stating. He had high CIWA scores, possibly (unknown) (no (unknown) (unknown) he is safe for (units (unknown) date) discharge home at unknown) this time. He had no injuries as a result of (unknown) (no (unknown) (unknown) his fall. (units (unkn own) date) unknown) (unknown) (no (unknown) (unknown) household (units (unkn own) date) members: spouse unknown) (unknown) (no (unknown) (unknown) important to (units (u nknown) date) avoid while on unknown) opiate pain medications and sleeping medication. (unknown) (no (unknown) (unknown) in his symptoms, (units (unknown) date) he did remain more unknown) hypertensive with nausea and vomiting but (unknown) (no (unknown) (unknown) nausea and (units (unkn own) date) vomiting that was unknown) reportedly intractable. The patient states that he (unknown) (no (unknown) (unknown) needed and some (units (unknown) date) phenobarbital with unknown) improvement. He was less agressive on the day (unknown) (no (unknown) (unknown) night when he (units ( unknown) date) stumbled and fell unknown) forward, striking his nose. He denied loss of (unknown) (no (unknown) (unknown) not further (units (un known) date) quantify how much unknown) he drinks every day when asked directly. He (unknown) (no (unknown) (unknown) of discharge and (units (unknown) date) much less unknown) tremulous with improved gait. He was discharged home. (unknown) (no (unknown) (unknown) or tremulousness (units (unknown) date) today. unknown) (unknown) (no (unknown) (unknown) petechiae.? (units (un known) date) unknown) (unknown) (no (unknown) (unknown) pharynx is clear (units (unknown) date) and mucous unknown) membranes are moist. (unknown) (no (unknown) (unknown) positive for (units (u nknown) date) opiates and unknown) benzodiazepines. Alcohol level was 111. COVID-19 (unknown) (no (unknown) (unknown) shortness of (units (u nknown) date) breath. In the unknown) emergency room, the patient was hypertensive, with (unknown) (no (unknown) (unknown) substance use (units ( unknown) date) type: does not unknown) use (unknown) (no (unknown) (unknown) testing was (units (un known) date) negative. Patient unknown) was admitted for further management of alcohol (unknown) (no (unknown) (unknown) that he had been (units (unknown) date) on clonidine unknown) recently from his PCP. Initial laboratory (unknown) (no (unknown) (unknown) this improved with (units (unknown) date) Ativan that was unknown) given in the emergency room. It also appears (unknown) (no (unknown) (unknown) trazodone and had (units (unknown) date) not slept in 2 unknown) days at home, and this is why he drank (unknown) (no (unknown) (unknown) was admitted for (units (unknown) date) development of unknown) alcohol withdrawal. (unknown) (no (unknown) (unknown) withdrawal (units (unk nown) date) unknown) (unknown) (no (unknown) (unknown) withdrawal. You (units (unknown) date) improved with unknown) medications. Avoid alcohol in the future, more (unknown) (no (unknown) (unknown) yesterday (units (unkn own) date) evening. unknown) Result panel 69 (unknown) (no (unknown) (unknown) (no value) (units (unk nown) date) unknown) (unknown) (no (unknown) (unknown) Radiologist's (units ( unknown) date) Impression: unknown) (unknown) (no (unknown) (unknown) (no value) (units (unk nown) date) unknown) (unknown) (no (unknown) (unknown) Date of Service: (units (unknown) date) 12/08/21 unknown) (unknown) (no (unknown) (unknown) (no value) (units (unk nown) date) unknown) (unknown) (no (unknown) (unknown) <Electronically (units (unknown) date) signed by Jung unknown) Raymond Dejesus> (unknown) (no (unknown) (unknown) 12/10/21 07:26 (units (unknown) date) unknown) (unknown) (no (unknown) (unknown) 12/11/21 0740 (units ( unknown) date) unknown) (unknown) (no (unknown) (unknown) [address] [place] [address] (units (unknown) date) unknown) (unknown) (no (unknown) (unknown) ANXIETY, (units (unkno wn) date) unknown) (unknown) (no (unknown) (unknown) Admin: 12/07/21 (units (unknown) date) 23:25 Dose: 150 unknown) mls/hr (unknown) (no (unknown) (unknown) Admin: 12/08/21 (units (unknown) date) 13:01 Dose: 975 mg unknown) (unknown) (no (unknown) (unknown) Admin: 12/08/21 (units (unknown) date) 13:19 Dose: 100 mg unknown) (unknown) (no (unknown) (unknown) Admin: 12/08/21 (units (unknown) date) 15:00 Dose: 10 mg unknown) (unknown) (no (unknown) (unknown) Admin: 12/08/21 (units (unknown) date) 15:00 Dose: 100 mg unknown) (unknown) (no (unknown) (unknown) Admin: 12/08/21 (units (unknown) date) 16:40 Dose: 2.5 mg unknown) (unknown) (no (unknown) (unknown) Admin: 12/08/21 (units (unknown) date) 17:31 Dose: 2 mg unknown) (unknown) (no (unknown) (unknown) Admin: 12/08/21 (units (unknown) date) 19:42 Dose: 10 ml unknown) (unknown) (no (unknown) (unknown) Admin: 12/08/21 (units (unknown) date) 19:42 Dose: 2 mg unknown) (unknown) (no (unknown) (unknown) Admin: 12/08/21 (units (unknown) date) 19:45 Dose: 2.5 mg unknown) (unknown) (no (unknown) (unknown) Admin: 12/08/21 (units (unknown) date) 21:20 Dose: 10 ml unknown) (unknown) (no (unknown) (unknown) Admin: 12/08/21 (units (unknown) date) 21:20 Dose: 300 mg unknown) (unknown) (no (unknown) (unknown) Admin: 12/08/21 (units (unknown) date) 21:24 Dose: 2 mg unknown) (unknown) (no (unknown) (unknown) Admin: 12/08/21 (units (unknown) date) 22:33 Dose: 2 mg unknown) (unknown) (no (unknown) (unknown) Admin: 12/08/21 (units (unknown) date) 22:37 Dose: 25 mg unknown) (unknown) (no (unknown) (unknown) Admin: 12/08/21 (units (unknown) date) 22:38 Dose: 500 mg unknown) (unknown) (no (unknown) (unknown) Admin: 12/09/21 (units (unknown) date) 00:04 Dose: 10 mg unknown) (unknown) (no (unknown) (unknown) Admin: 12/09/21 (units (unknown) date) 03:59 Dose: 975 mg unknown) (unknown) (no (unknown) (unknown) Admin: 12/09/21 (units (unknown) date) 04:10 Dose: 2.5 mg unknown) (unknown) (no (unknown) (unknown) Admin: 12/09/21 (units (unknown) date) 06:58 Dose: 10 mg unknown) (unknown) (no (unknown) (unknown) Admin: 12/09/21 (units (unknown) date) 07:39 Dose: 2 mg unknown) (unknown) (no (unknown) (unknown) Admin: 12/09/21 (units (unknown) date) 10:03 Dose: 40 mg unknown) (unknown) (no (unknown) (unknown) Admin: 12/09/21 (units (unknown) date) 10:03 Dose: Not unknown) Given (unknown) (no (unknown) (unknown) Admin: 12/09/21 (units (unknown) date) 10:42 Dose: 25 mg unknown) (unknown) (no (unknown) (unknown) Admin: 12/09/21 (units (unknown) date) 10:52 Dose: Not unknown) Given (unknown) (no (unknown) (unknown) Admin: 12/09/21 (units (unknown) date) 11:41 Dose: 1 mg unknown) (unknown) (no (unknown) (unknown) Admin: 12/09/21 (units (unknown) date) 11:43 Dose: 1 tab unknown) (unknown) (no (unknown) (unknown) Admin: 12/09/21 (units (unknown) date) 11:44 Dose: Not unknown) Given (unknown) (no (unknown) (unknown) Admin: 12/09/21 (units (unknown) date) 11:54 Dose: Not unknown) Given (unknown) (no (unknown) (unknown) Admin: 12/09/21 (units (unknown) date) 11:59 Dose: 500 mg unknown) (unknown) (no (unknown) (unknown) Admin: 12/09/21 (units (unknown) date) 11:59 Dose: 975 mg unknown) (unknown) (no (unknown) (unknown) Admin: 12/09/21 (units (unknown) date) 12:13 Dose: 1 mg unknown) (unknown) (no (unknown) (unknown) Admin: 12/09/21 (units (unknown) date) 12:14 Dose: Not unknown) Given (unknown) (no (unknown) (unknown) Admin: 12/09/21 (units (unknown) date) 16:40 Dose: 2 mg unknown) (unknown) (no (unknown) (unknown) Admin: 12/09/21 (units (unknown) date) 17:57 Dose: Not unknown) Given (unknown) (no (unknown) (unknown) Admin: 12/09/21 (units (unknown) date) 19:11 Dose: 2 mg unknown) (unknown) (no (unknown) (unknown) Admin: 12/09/21 (units (unknown) date) 20:59 Dose: 10 ml unknown) (unknown) (no (unknown) (unknown) Admin: 12/09/21 (units (unknown) date) 21:26 Dose: 25 mg unknown) (unknown) (no (unknown) (unknown) Admin: 12/09/21 (units (unknown) date) 21:27 Dose: 10 mg unknown) (unknown) (no (unknown) (unknown) Admin: 12/09/21 (units (unknown) date) 21:55 Dose: 2 mg unknown) (unknown) (no (unknown) (unknown) Admin: 12/09/21 (units (unknown) date) 22:18 Dose: 2 mg unknown) (unknown) (no (unknown) (unknown) Admin: 12/09/21 (units (unknown) date) 23:21 Dose: 500 mg unknown) (unknown) (no (unknown) (unknown) Admin: 12/09/21 (units (unknown) date) 23:27 Dose: 2 mg unknown) (unknown) (no (unknown) (unknown) Allergies (units (unkn own) date) unknown) (unknown) (no (unknown) (unknown) [place] (units ( unknown) date) [id number] unknown) (unknown) (no (unknown) (unknown) CT Scan Report (units (unknown) date) unknown) (unknown) (no (unknown) (unknown) Close (units (unkno wn) date) unknown) (unknown) (no (unknown) (unknown) DIZZINESS (units (unkn own) date) unknown) (unknown) (no (unknown) (unknown) Documented by: (units (unknown) date) AHARSTA unknown) (unknown) (no (unknown) (unknown) Documented by: (units (unknown) date) CMCFARL unknown) (unknown) (no (unknown) (unknown) Documented by: (units (unknown) date) [facility].JJORDA unknown) (unknown) (no (unknown) (unknown) Documented by: (units (unknown) date) CTR.KHARTZ unknown) (unknown) (no (unknown) (unknown) Documented by: (units (unknown) date) CTR.KKURAY unknown) (unknown) (no (unknown) (unknown) Documented by: (units (unknown) date) CTR.MKIM unknown) (unknown) (no (unknown) (unknown) Documented by: (units (unknown) date) EJANIN unknown) (unknown) (no (unknown) (unknown) Documented by: (units (unknown) date) JZIGLAR unknown) (unknown) (no (unknown) (unknown) Documented by: (units (unknown) date) KBROTEM unknown) (unknown) (no (unknown) (unknown) Documented by: (units (unknown) date) KBROWNE unknown) (unknown) (no (unknown) (unknown) Documented by: (units (unknown) date) KPETERSON unknown) (unknown) (no (unknown) (unknown) Documented by: (units (unknown) date) NCANNIF unknown) (unknown) (no (unknown) (unknown) Documented by: (units (unknown) date) RLAZANI unknown) (unknown) (no (unknown) (unknown) Documented by: (units (unknown) date) STHOMP unknown) (unknown) (no (unknown) (unknown) EXPOSURE (units (unkno wn) date) unknown) (unknown) (no (unknown) (unknown) Emergency Report (units (unknown) date) unknown) (unknown) (no (unknown) (unknown) Home Medications (units (unknown) date) unknown) (unknown) (no (unknown) (unknown) [facility] (units (unknown) date) unknown) (unknown) (no (unknown) (unknown) [facility] (units (unknown) date) [address] unknown) [place] [address] (unknown) (no (unknown) (unknown) JERKING, (units (unkno wn) date) unknown) (unknown) (no (unknown) (unknown) Lab Results (units (un known) date) unknown) (unknown) (no (unknown) (unknown) Last Admin: (units (un known) date) 12/08/21 01:35 unknown) Dose: 1 tab (unknown) (no (unknown) (unknown) Last Admin: (units (un known) date) 12/08/21 02:34 unknown) Dose: 4 mg (unknown) (no (unknown) (unknown) Last Admin: (units (un known) date) 12/08/21 04:04 unknown) Dose: 0.5 mg (unknown) (no (unknown) (unknown) Last Admin: (units (un known) date) 12/08/21 05:53 unknown) Dose: 4 mg (unknown) (no (unknown) (unknown) Last Admin: (units (un known) date) 12/08/21 05:53 unknown) Dose: 40 mg (unknown) (no (unknown) (unknown) Last Admin: (units (un known) date) 12/08/21 06:11 unknown) Dose: 260 mg (unknown) (no (unknown) (unknown) Last Admin: (units (un known) date) 12/08/21 06:42 unknown) Dose: 20 mg (unknown) (no (unknown) (unknown) Last Admin: (units (un known) date) 12/08/21 06:47 unknown) Dose: Not Given (unknown) (no (unknown) (unknown) Last Admin: (units (un known) date) 12/08/21 07:16 unknown) Dose: 10 mg (unknown) (no (unknown) (unknown) Last Admin: (units (un known) date) 12/08/21 07:17 unknown) Dose: 2.5 mg (unknown) (no (unknown) (unknown) Last Admin: (units (un known) date) 12/08/21 08:12 unknown) Dose: 0.5 mg (unknown) (no (unknown) (unknown) Last Admin: (units (un known) date) 12/08/21 10:03 unknown) Dose: 2 mg (unknown) (no (unknown) (unknown) Last Admin: (units (un known) date) 12/08/21 10:42 unknown) Dose: 1 tab (unknown) (no (unknown) (unknown) Last Admin: (units (un known) date) 12/08/21 13:01 unknown) Dose: 5 mg (unknown) (no (unknown) (unknown) Last Admin: (units (un known) date) 12/08/21 21:24 unknown) Dose: 10 ml (unknown) (no (unknown) (unknown) Last Admin: (units (un known) date) 12/09/21 10:01 unknown) Dose: 5 mg (unknown) (no (unknown) (unknown) Last Admin: (units (un known) date) 12/09/21 13:46 unknown) Dose: 2.5 mg (unknown) (no (unknown) (unknown) Last Admin: (units (un known) date) 12/09/21 16:00 unknown) Dose: 2 mg (unknown) (no (unknown) (unknown) Last Admin: (units (un known) date) 12/09/21 16:24 unknown) Dose: 4 mg (unknown) (no (unknown) (unknown) Last Admin: (units (un known) date) 12/09/21 18:11 unknown) Dose: 65 mg (unknown) (no (unknown) (unknown) Last Admin: (units (un known) date) 12/09/21 19:56 unknown) Dose: 65 mg (unknown) (no (unknown) (unknown) Last Admin: (units (un known) date) 12/09/21 21:27 unknown) Dose: 300 mg (unknown) (no (unknown) (unknown) Last Admin: (units (un known) date) 12/09/21 21:47 unknown) Dose: 975 mg (unknown) (no (unknown) (unknown) Last Admin: (units (un known) date) 12/10/21 03:58 unknown) Dose: 10 mg (unknown) (no (unknown) (unknown) Last Admin: (units (un known) date) 12/10/21 04:12 unknown) Dose: 2 mg (unknown) (no (unknown) (unknown) Last Admin: (units (un known) date) 12/10/21 06:26 unknown) Dose: 500 mg (unknown) (no (unknown) (unknown) Last Admin: (units (un known) date) 12/10/21 09:44 unknown) Dose: 1 mg (unknown) (no (unknown) (unknown) Last Admin: (units (un known) date) 12/10/21 09:44 unknown) Dose: 1 tab (unknown) (no (unknown) (unknown) Last Admin: (units (un known) date) 12/10/21 09:44 unknown) Dose: 10 mg (unknown) (no (unknown) (unknown) Last Admin: (units (un known) date) 12/10/21 09:44 unknown) Dose: 100 mg (unknown) (no (unknown) (unknown) Last Admin: (units (un known) date) 12/10/21 09:44 unknown) Dose: 25 mg (unknown) (no (unknown) (unknown) Last Admin: (units (un known) date) 12/10/21 09:45 unknown) Dose: 40 mg (unknown) (no (unknown) (unknown) Last Admin: (units (un known) date) 12/10/21 09:45 unknown) Dose: Not Given (unknown) (no (unknown) (unknown) Last Admin: (units (un known) date) 12/10/21 09:50 unknown) Dose: Not Given (unknown) (no (unknown) (unknown) Last Infusion: (units (unknown) date) 12/08/21 04:00 unknown) Dose: 0 mls/hr (unknown) (no (unknown) (unknown) Launch?Image (units (u nknown) date) unknown) (unknown) (no (unknown) (unknown) MINUTES (units (unkno wn) date) unknown) (unknown) (no (unknown) (unknown) NAUSEA W/I (units (unk nown) date) unknown) (unknown) (no (unknown) (unknown) PRN Reason: (units (un known) date) Alcohol Withdrawal unknown) (unknown) (no (unknown) (unknown) PRN Reason: Flush (units (unknown) date) unknown) (unknown) (no (unknown) (unknown) PRN Reason: Muscle (units (unknown) date) Spasm unknown) (unknown) (no (unknown) (unknown) PRN Reason: Nausea (units (unknown) date) And Vomiting unknown) (unknown) (no (unknown) (unknown) PRN Reason: Opiate (units (unknown) date) Reversal unknown) (unknown) (no (unknown) (unknown) PRN Reason: Pain, (units (unknown) date) Mild (1-3) unknown) (unknown) (no (unknown) (unknown) PRN Reason: Pain, (units (unknown) date) Moderate (4-6) unknown) (unknown) (no (unknown) (unknown) PRN Reason: Pain, (units (unknown) date) Severe (7-10) unknown) (unknown) (no (unknown) (unknown) PRN Reason: (units (un known) date) Shortness Of Breath unknown) (unknown) (no (unknown) (unknown) PRN Reason: (units (un known) date) insomnia unknown) (unknown) (no (unknown) (unknown) Point of Care (units ( unknown) date) Testing unknown) (unknown) (no (unknown) (unknown) Previous Rx's (units ( unknown) date) unknown) (unknown) (no (unknown) (unknown) Signed (units (unkno wn) date) unknown) (unknown) (no (unknown) (unknown) Stop: 12/08/21 (units (unknown) date) 01:26 unknown) (unknown) (no (unknown) (unknown) Stop: 12/08/21 (units (unknown) date) 02:32 unknown) (unknown) (no (unknown) (unknown) Stop: 12/08/21 (units (unknown) date) 04:01 unknown) (unknown) (no (unknown) (unknown) Stop: 12/08/21 (units (unknown) date) 05:47 unknown) (unknown) (no (unknown) (unknown) Stop: 12/08/21 (units (unknown) date) 05:50 unknown) (unknown) (no (unknown) (unknown) Stop: 12/08/21 (units (unknown) date) 06:04 unknown) (unknown) (no (unknown) (unknown) Stop: 12/08/21 (units (unknown) date) 06:31 unknown) (unknown) (no (unknown) (unknown) Stop: 12/08/21 (units (unknown) date) 07:12 unknown) (unknown) (no (unknown) (unknown) Stop: 12/08/21 (units (unknown) date) 07:16 unknown) (unknown) (no (unknown) (unknown) Stop: 12/08/21 (units (unknown) date) 08:05 unknown) (unknown) (no (unknown) (unknown) Stop: 12/08/21 (units (unknown) date) 09:54 unknown) (unknown) (no (unknown) (unknown) Stop: 12/08/21 (units (unknown) date) 10:39 unknown) (unknown) (no (unknown) (unknown) Stop: 12/08/21 (units (unknown) date) 11:41 unknown) (unknown) (no (unknown) (unknown) Stop: 12/09/21 (units (unknown) date) 17:46 unknown) (unknown) (no (unknown) (unknown) Stop: 12/09/21 (units (unknown) date) 19:08 unknown) (unknown) (no (unknown) (unknown) Stop: 12/11/21 (units (unknown) date) 09:01 unknown) (unknown) (no (unknown) (unknown) Vital Signs - 8 hr (units (unknown) date) unknown) (unknown) (no (unknown) (unknown) W/EXTENDED (units (unk nown) date) unknown) (unknown) (no (unknown) (unknown) (no value) (units (unk nown) date) unknown) (unknown) (no (unknown) (unknown) 12/07/21 12/07/21 (units (unknown) date) 12/07/21 unknown) Range/Units (unknown) (no (unknown) (unknown) 12/07/21 12/08/21 (units (unknown) date) Range/Units unknown) (unknown) (no (unknown) (unknown) 23:05 23:05 23:05 (units (unknown) date) unknown) (unknown) (no (unknown) (unknown) 23:05 23:44 23:57 (units (unknown) date) unknown) (unknown) (no (unknown) (unknown) 23:57 01:33 (units (un known) date) unknown) (unknown) (no (unknown) (unknown) 12/08/21 (units (unkno wn) date) unknown) (unknown) (no (unknown) (unknown) Intractable nausea (units (unknown) date) and vomiting unknown) (unknown) (no (unknown) (unknown) Medication (units (unk nown) date) Instructions unknown) Recorded (unknown) (no (unknown) (unknown) Medication (units (unk nown) date) Instructions unknown) Recorded Confirmed (unknown) (no (unknown) (unknown) been contacted and (units (unknown) date) she will be able to unknown) come pick him up in the morning. (unknown) (no (unknown) (unknown) daytime (units (unkno wn) date) hospitalist to unknown) accept patient. (unknown) (no (unknown) (unknown) facet (units (unkno wn) date) unknown) (unknown) (no (unknown) (unknown) junction (units (unkno wn) date) unknown) (unknown) (no (unknown) (unknown) of (units (unkno wn) date) unknown) (unknown) (no (unknown) (unknown) rales, or rhonchi. (units (unknown) date) unknown) (unknown) (no (unknown) (unknown) <Ezra Jasmine (units (unknown) date) - Last Filed: unknown) 12/08/21 08:06> (unknown) (no (unknown) (unknown) <Jung Dejesus DO (units (unknown) date) - Last Filed: unknown) 12/11/21 07:40> (unknown) (no (unknown) (unknown) (Athenol) (units (unkn own) date) unknown) (unknown) (no (unknown) (unknown) (More??) (units (unkno wn) date) unknown) (unknown) (no (unknown) (unknown) (Tessalon Perles) (units (unknown) date) unknown) (unknown) (no (unknown) (unknown) (Xopenex HFA) (units ( unknown) date) unknown) (unknown) (no (unknown) (unknown) - (units (unkno wn) date) unknown) (unknown) (no (unknown) (unknown) [phone] (units (unkn own) date) unknown) (unknown) (no (unknown) (unknown) 08/11/20 (units (unkno wn) date) unknown) (unknown) (no (unknown) (unknown) 08/16/20 (units (unkno wn) date) unknown) (unknown) (no (unknown) (unknown) 08/28/20 (units (unkno wn) date) unknown) (unknown) (no (unknown) (unknown) 09/15/21 (units (unkno wn) date) unknown) (unknown) (no (unknown) (unknown) 10/07/21 (units (unkno wn) date) unknown) (unknown) (no (unknown) (unknown) 10/08/21 (units (unkno wn) date) unknown) (unknown) (no (unknown) (unknown) 10/31/20 (units (unkno wn) date) unknown) (unknown) (no (unknown) (unknown) 11/04/20 (units (unkno wn) date) unknown) (unknown) (no (unknown) (unknown) 11/07/20 (units (unkno wn) date) unknown) (unknown) (no (unknown) (unknown) 11/19/21 (units (unkno wn) date) unknown) (unknown) (no (unknown) (unknown) 11/22/20 (units (unkno wn) date) unknown) (unknown) (no (unknown) (unknown) 11/28/21 (units (unkno wn) date) unknown) (unknown) (no (unknown) (unknown) 12/07/21 (units (unkno wn) date) unknown) (unknown) (no (unknown) (unknown) 12/28/20 (units (unkno wn) date) unknown) (unknown) (no (unknown) (unknown) 05:35 12/08/21 (units (unknown) date) unknown) (unknown) (no (unknown) (unknown) 05:37 12/08/21 (units (unknown) date) unknown) (unknown) (no (unknown) (unknown) 06:32 (units (unkno wn) date) unknown) (unknown) (no (unknown) (unknown) 06:33 12/08/21 (units (unknown) date) unknown) (unknown) (no (unknown) (unknown) 03/05/21 (units (unkno wn) date) unknown) (unknown) (no (unknown) (unknown) 07:00 12/08/21 (units (unknown) date) unknown) (unknown) (no (unknown) (unknown) 07:18 (units (unkno wn) date) unknown) (unknown) (no (unknown) (unknown) 04/16/21 (units (unkno wn) date) unknown) (unknown) (no (unknown) (unknown) 1. No acute (units (un known) date) intracranial unknown) abnormality. (unknown) (no (unknown) (unknown) 1.? No acute (units (u nknown) date) fracture or unknown) subluxation. (unknown) (no (unknown) (unknown) 12 point review of (units (unknown) date) systems is negative unknown) except for those stated above (unknown) (no (unknown) (unknown) 07/18/20 (units (unkno wn) date) unknown) (unknown) (no (unknown) (unknown) 2. Bony remodeling (units (unknown) date) in the left unknown) maxillary sinus redemonstrated consistent with (unknown) (no (unknown) (unknown) 2. Postsurgical (units (unknown) date) changes unknown) redemonstrated throughout the cervical spine with fusion (unknown) (no (unknown) (unknown) 3. Mild cerebral (units (unknown) date) volume loss.? unknown) (unknown) (no (unknown) (unknown) 76-year-old male (units (unknown) date) former smoker with unknown) heavy alcohol abuse today and history of (unknown) (no (unknown) (unknown) 7:00 a.m. s/o from (units (unknown) date) dr dejesus, patient unknown) will need admission for intractable (unknown) (no (unknown) (unknown) ? (units (unkno wn) date) unknown) (unknown) (no (unknown) (unknown) ? (units (unkno wn) date) unknown) (unknown) (no (unknown) (unknown) ?Minimal (units (unkno wn) date) anterolisthesis unknown) also demonstrated at T1-T2.? Findings are similar to (unknown) (no (unknown) (unknown) ACDF at (units (unkno wn) date) unknown) (unknown) (no (unknown) (unknown) ALT (<50) (units ( unknown) date) IU/L unknown) (unknown) (no (unknown) (unknown) ALT (<50) IU/L (units (unknown) date) unknown) (unknown) (no (unknown) (unknown) ALT 31 (<50) (units (unknown) date) IU/L unknown) (unknown) (no (unknown) (unknown) ANTIBIOTICS)] (units ( unknown) date) unknown) (unknown) (no (unknown) (unknown) AST (17-59) (units (unknown) date) IU/L unknown) (unknown) (no (unknown) (unknown) AST (17-59) (units (unknown) date) IU/L unknown) (unknown) (no (unknown) (unknown) AST 32 (17-59) (units (unknown) date) IU/L unknown) (unknown) (no (unknown) (unknown) Accession Number: (units (unknown) date) [id number] ?? unknown) (unknown) (no (unknown) (unknown) Accession Number: (units (unknown) date) [id number] ?? unknown) (unknown) (no (unknown) (unknown) Acct:[id number] (units (unknown) date) unknown) (unknown) (no (unknown) (unknown) Acetaminophen (units ( unknown) date) (10-30) ug/mL unknown) (unknown) (no (unknown) (unknown) Acetaminophen (units ( unknown) date) (10-30) ug/mL unknown) (unknown) (no (unknown) (unknown) Acetaminophen < (units (unknown) date) 10 (10-30) ug/mL unknown) (unknown) (no (unknown) (unknown) Acetaminophen (units ( unknown) date) (Acetaminophen 325 unknown) Mg Tablet) 975 mg PO Q8HR PRN (unknown) (no (unknown) (unknown) Acetaminophen/Code (units (unknown) date) ine Phosphate unknown) (Codeine/Acetaminop hen 30/300 Tablet) 1 tab PO (unknown) (no (unknown) (unknown) Achalasia (units (unkn own) date) unknown) (unknown) (no (unknown) (unknown) Admit Date/Time: (units (unknown) date) 12/08/21 08:04 unknown) (unknown) (no (unknown) (unknown) Admit Provider: (units (unknown) date) Aditya Tapia unknown) (unknown) (no (unknown) (unknown) Age/Sex: 76 / M (units (unknown) date) unknown) (unknown) (no (unknown) (unknown) Age/Sex: 76 / M (units (unknown) date) unknown) (unknown) (no (unknown) (unknown) Albumin (units (unkno wn) date) (3.5-5.0) g/dL unknown) (unknown) (no (unknown) (unknown) Albumin (units (unkno wn) date) (3.5-5.0) g/dL unknown) (unknown) (no (unknown) (unknown) Albumin 4.1 (units ( unknown) date) (3.5-5.0) g/dL unknown) (unknown) (no (unknown) (unknown) Albumin/Globulin (units (unknown) date) Ratio (1.0-2.8) unknown) (unknown) (no (unknown) (unknown) Albumin/Globulin (units (unknown) date) Ratio (1.0-2.8) unknown) (unknown) (no (unknown) (unknown) Albumin/Globulin (units (unknown) date) Ratio 1.4 unknown) (1.0-2.8) (unknown) (no (unknown) (unknown) Albuterol (units (unkn own) date) (Albuterol 2.5 Mg/3 unknown) Ml Neb (Adult)) 2.5 mg INH NOW ONE (unknown) (no (unknown) (unknown) Albuterol (units (unkn own) date) (Albuterol 2.5 Mg/3 unknown) Ml Neb (Adult)) 2.5 mg INH [id number] PRN (unknown) (no (unknown) (unknown) Alkaline (units (unkno wn) date) Phosphatase unknown) (38-126) U/L (unknown) (no (unknown) (unknown) Alkaline (units (unkno wn) date) Phosphatase unknown) (38-126) U/L (unknown) (no (unknown) (unknown) Alkaline (units (unkno wn) date) Phosphatase 64 unknown) (38-126) U/L (unknown) (no (unknown) (unknown) Allergy/Adv: (units (u nknown) date) celecoxib, latex, unknown) Sulfa (Sulfonamide Antibiotics), varenicline, (unknown) (no (unknown) (unknown) Allergy/AdvReac (units (unknown) date) Type Severity unknown) Reaction Status Date / Time (unknown) (no (unknown) (unknown) Anginal pain (units (u nknown) date) unknown) (unknown) (no (unknown) (unknown) Ankle X-Ray (units (un known) date) (Signed) unknown) (unknown) (no (unknown) (unknown) Antibiotics) (units (u nknown) date) unknown) (unknown) (no (unknown) (unknown) Approved by: (units (u nknown) date) Maxim Valadez, unknown) Clifford on 12/07/2021 at 21:44 ? (unknown) (no (unknown) (unknown) Approved by: (units (u nknown) date) Maxim Valadez, unknown) Clifford on 12/07/2021 at 21:48 ? (unknown) (no (unknown) (unknown) Asthma (units (unkno wn) date) unknown) (unknown) (no (unknown) (unknown) Atrial (units (unkno wn) date) fibrillation unknown) (unknown) (no (unknown) (unknown) BACK: Nontender (units (unknown) date) without deformity unknown) or crepitance. No flank tenderness. (unknown) (no (unknown) (unknown) BUN (9-20) (units (unknown) date) mg/dL unknown) (unknown) (no (unknown) (unknown) BUN (9-20) (units ( unknown) date) mg/dL unknown) (unknown) (no (unknown) (unknown) BUN 21 H (units (unk nown) date) (9-20) mg/dL unknown) (unknown) (no (unknown) (unknown) BUN/Creatinine (units (unknown) date) Ratio (6-22) unknown) (unknown) (no (unknown) (unknown) BUN/Creatinine (units (unknown) date) Ratio (6-22) unknown) (unknown) (no (unknown) (unknown) BUN/Creatinine (units (unknown) date) Ratio 23.9 H unknown) (6-22) (unknown) (no (unknown) (unknown) Baso # (Auto) (units ( unknown) date) (0-100) /uL unknown) (unknown) (no (unknown) (unknown) Baso # (Auto) (units ( unknown) date) (0-100) /uL unknown) (unknown) (no (unknown) (unknown) Baso # (Auto) 100 (units (unknown) date) (0-100) /uL unknown) (unknown) (no (unknown) (unknown) Baso % (Auto) (units ( unknown) date) (0-2) % unknown) (unknown) (no (unknown) (unknown) Baso % (Auto) (units ( unknown) date) (0-2) % unknown) (unknown) (no (unknown) (unknown) Baso % (Auto) 0.8 (units (unknown) date) (0-2) % unknown) (unknown) (no (unknown) (unknown) Blood Pressure (units (unknown) date) 159/98 H 05 unknown) 20:23 (unknown) (no (unknown) (unknown) Blood Pressure (units (unknown) date) 194/102 H 228/109 H unknown) (unknown) (no (unknown) (unknown) Blood Pressure (units (unknown) date) 207/103 H 207/103 H unknown) (unknown) (no (unknown) (unknown) Bones:? No (units (unk nown) date) fractures or unknown) subluxation.? There is anterolisthesis at C2-C3 (unknown) (no (unknown) (unknown) Brain MRI (Signed) (units (unknown) date) unknown) (unknown) (no (unknown) (unknown) Brain:? No (units (unkn own) date) intracranial unknown) hemorrhage, mass, or mass effect.? The adams-white matter (unknown) (no (unknown) (unknown) C4-C5 and C7-T1.? (units (unknown) date) There is also unknown) fusion at C5-C6 and C6-C7.? There is mild to (unknown) (no (unknown) (unknown) CARDIOVASCULAR: (units (unknown) date) Denies chest pain, unknown) palpitations, orthopnea, edema, (unknown) (no (unknown) (unknown) CARDIOVASCULAR: (units (unknown) date) Regular rate and unknown) rhythm without murmurs, gallops, or rubs. (unknown) (no (unknown) (unknown) COMPARISON:? (units (u nknown) date) [facility], unknown) CT, CT CERVICAL SPINE WO [facility], 04/16/2021, 12:21. (unknown) (no (unknown) (unknown) COMPARISON:? (units (u nknown) date) [facility], unknown) CT, CT HEAD/BRAIN [facility], 04/16/2021, 12:21. (unknown) (no (unknown) (unknown) COPD (chronic (units ( unknown) date) obstructive unknown) pulmonary disease) (unknown) (no (unknown) (unknown) CSF spaces:? Basal (units (unknown) date) cisterns are unknown) patent.? The ventricles are symmetric in size (unknown) (no (unknown) (unknown) CT - cervical (units ( unknown) date) spine: unknown) (unknown) (no (unknown) (unknown) CT scan - head: (units (unknown) date) unknown) (unknown) (no (unknown) (unknown) Calcium (units (unkno wn) date) (8.4-10.2) mg/dL unknown) (unknown) (no (unknown) (unknown) Calcium (units (unkno wn) date) (8.4-10.2) mg/dL unknown) (unknown) (no (unknown) (unknown) Calcium 8.4 (units ( unknown) date) (8.4-10.2) mg/dL unknown) (unknown) (no (unknown) (unknown) Call,Francisco J (units (unk nown) date) unknown) (unknown) (no (unknown) (unknown) Carbon Dioxide (units (unknown) date) (22-32) mmol/L unknown) (unknown) (no (unknown) (unknown) Carbon Dioxide (units (unknown) date) (22-32) mmol/L unknown) (unknown) (no (unknown) (unknown) Carbon Dioxide (units (unknown) date) 27 (22-32) unknown) mmol/L (unknown) (no (unknown) (unknown) Cervical Spine CT (units (unknown) date) (Signed) unknown) (unknown) (no (unknown) (unknown) Cervical spinal (units (unknown) date) stenosis unknown) (unknown) (no (unknown) (unknown) Chest CTA (Signed) (units (unknown) date) unknown) (unknown) (no (unknown) (unknown) Chest X-Ray (units (un known) date) (Signed) unknown) (unknown) (no (unknown) (unknown) Chest/Abdomen/Pelv (units (unknown) date) is CTA (Signed) unknown) (unknown) (no (unknown) (unknown) Chief Complaint: (units (unknown) date) Trauma unknown) (unknown) (no (unknown) (unknown) Chlordiazepoxide (units (unknown) date) HCl unknown) (Chlordiazepoxide 25 Mg Capsule) 25 mg PO TID BLOSSOM (unknown) (no (unknown) (unknown) Chloride (units (unkno wn) date) (98-107) mmol/L unknown) (unknown) (no (unknown) (unknown) Chloride (units (unkno wn) date) (98-107) mmol/L unknown) (unknown) (no (unknown) (unknown) Chloride 104 (units (unknown) date) (98-107) mmol/L unknown) (unknown) (no (unknown) (unknown) 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 (10/22/16) (unknown) (no (unknown) (unknown) Zeina Saavedra (units (u nknown) date) unknown) (unknown) (no (unknown) (unknown) Clinical (units (unkno wn) date) Impression: unknown) (unknown) (no (unknown) (unknown) Consultation #1: (units (unknown) date) unknown) (unknown) (no (unknown) (unknown) Consultations (units ( unknown) date) unknown) (unknown) (no (unknown) (unknown) Coronary artery (units (unknown) date) disease unknown) (unknown) (no (unknown) (unknown) Course (units (unkno wn) date) unknown) (unknown) (no (unknown) (unknown) Course Narrative: (units (unknown) date) unknown) (unknown) (no (unknown) (unknown) Creatinine (units (unk nown) date) (0.66-1.25) mg/dL unknown) (unknown) (no (unknown) (unknown) Creatinine (units (unk nown) date) (0.66-1.25) mg/dL unknown) (unknown) (no (unknown) (unknown) Creatinine 0.88 (units (unknown) date) (0.66-1.25) mg/dL unknown) (unknown) (no (unknown) (unknown) : 1945 (units (unknown) date) Acct:[id number] unknown) (unknown) (no (unknown) (unknown) : 1945 (units (unknown) date) unknown) (unknown) (no (unknown) (unknown) Date of Service: (units (unknown) date) 12/07/21 unknown) (unknown) (no (unknown) (unknown) Departure (units (unkn own) date) unknown) (unknown) (no (unknown) (unknown) Inder Farley (units (u nknown) date) unknown) (unknown) (no (unknown) (unknown) Dictated by: (units (u nknown) date) Maxim Valadez, unknown) Clifford on 12/07/2021 at 21:42 ? ? (unknown) (no (unknown) (unknown) Dictated by: (units (u nknown) date) Maxim Valadez, unknown) Clifford on 12/07/2021 at 21:44 ? ? (unknown) (no (unknown) (unknown) Discharge Plan (units (unknown) date) unknown) (unknown) (no (unknown) (unknown) Discontinued (units (u nknown) date) Medications unknown) (unknown) (no (unknown) (unknown) ENT: Nose without (units (unknown) date) bleeding, purulent unknown) drainage. No nasal septal hematoma Throat (unknown) (no (unknown) (unknown) ER Physician: (units ( unknown) date) Ezra Jasmine MD unknown) (unknown) (no (unknown) (unknown) EXTREMITIES: No (units (unknown) date) edema or joint unknown) tenderness. (unknown) (no (unknown) (unknown) EYES: Pupils equal (units (unknown) date) round and reactive. unknown) No hyphema Extraocular motions intact. (unknown) (no (unknown) (unknown) Echocardiogram (units (unknown) date) Ultrasound (Signed) unknown) (unknown) (no (unknown) (unknown) Enoxaparin Sodium (units (unknown) date) (Enoxaparin 40 unknown) Mg/0.4 Ml Syringe) 40 mg SUBCUT DAILY BLOSSOM (unknown) (no (unknown) (unknown) Eos # (Auto) (units (u nknown) date) (0-450) /uL unknown) (unknown) (no (unknown) (unknown) Eos # (Auto) (units (u nknown) date) (0-450) /uL unknown) (unknown) (no (unknown) (unknown) Eos # (Auto) 100 (units (unknown) date) (0-450) /uL unknown) (unknown) (no (unknown) (unknown) Eos % (Auto) (units (u nknown) date) (2-4) % unknown) (unknown) (no (unknown) (unknown) Eos % (Auto) (units (u nknown) date) (2-4) % unknown) (unknown) (no (unknown) (unknown) Eos % (Auto) 2.0 (units (unknown) date) (2-4) % unknown) (unknown) (no (unknown) (unknown) Estimated GFR (units ( unknown) date) (>60) mL/min unknown) (unknown) (no (unknown) (unknown) Estimated GFR (units ( unknown) date) (>60) mL/min unknown) (unknown) (no (unknown) (unknown) Estimated GFR > (units (unknown) date) 60 (>60) mL/min unknown) (unknown) (no (unknown) (unknown) Ethyl Alcohol ( (units (unknown) date) - 10) mg/dL unknown) (unknown) (no (unknown) (unknown) Ethyl Alcohol ( (units (unknown) date) - 10) mg/dL unknown) (unknown) (no (unknown) (unknown) Ethyl Alcohol (units ( unknown) date) 111 H ( - 10) unknown) mg/dL (unknown) (no (unknown) (unknown) Exam (units (o wn) date) unknown) (unknown) (no (unknown) (unknown) Exam Narrative: (units (unknown) date) unknown) (unknown) (no (unknown) (unknown) FINDINGS:? (units (unk n) date) unknown) (unknown) (no (unknown) (unknown) Family History (units (unknown) date) (Updated 12/08/21 @ unknown) 13:50 by Aditya Tapia DO) (unknown) (no (unknown) (unknown) Father (units (o wn) date) Hypertension unknown) (unknown) (no (unknown) (unknown) Folic Acid (Folic (units (unknown) date) Acid 1 Mg Tablet) unknown) 1 mg PO DAILY BLOSSOM (unknown) (no (unknown) (unknown) Foot X-Ray (units () date) (Signed) unknown) (unknown) (no (unknown) (unknown) Furosemide (units (unn) date) (Furosemide 40 Mg unknown) Tablet) 40 mg PO DAILY BLOSSOM (unknown) (no (unknown) (unknown) GASTROINTESTINAL: (units (unknown) date) Abdomen soft, unknown) non-tender, nondistended. (unknown) (no (unknown) (unknown) GASTROINTESTINAL: (units (unknown) date) Denies nausea, unknown) vomiting, abdominal pain, diarrhea, (unknown) (no (unknown) (unknown) GENERAL: Denies (units (unknown) date) chills, fatigue, unknown) malaise, fever, sweats. (unknown) (no (unknown) (unknown) GENERAL: [76 year (units (unknown) date) old patient appears unknown) stated age. Well-developed patient, in (unknown) (no (unknown) (unknown) : Denies (units (unk n) date) dysuria, frequency, unknown) incontinence, hematuria, urinary retention. (unknown) (no (unknown) (unknown) General (units (o wn) date) unknown) (unknown) (no (unknown) (unknown) GenericComposite[P (units (unknown) date) lt Count unknown) (150-400) X10^3/uL ] (unknown) (no (unknown) (unknown) GenericComposite[P (units (unknown) date) lt Count unknown) (150-400) X10^3/uL ] (unknown) (no (unknown) (unknown) GenericComposite[P (units (unknown) date) lt Count 241 unknown) (150-400) X10^3/uL ] (unknown) (no (unknown) (unknown) GenericComposite[R (units (unknown) date) BC (4.5-5.9) unknown) X10^6/uL ] (unknown) (no (unknown) (unknown) GenericComposite[R (units (unknown) date) BC (4.5-5.9) unknown) X10^6/uL ] (unknown) (no (unknown) (unknown) GenericComposite[R (units (unknown) date) BC 4.93 unknown) (4.5-5.9) X10^6/uL ] (unknown) (no (unknown) (unknown) GenericComposite[W (units (unknown) date) BC (4.5-11.0) unknown) X10^3/uL ] (unknown) (no (unknown) (unknown) GenericComposite[W (units (unknown) date) BC (4.5-11.0) unknown) X10^3/uL ] (unknown) (no (unknown) (unknown) GenericComposite[W (units (unknown) date) BC 7.4 unknown) (4.5-11.0) X10^3/uL ] (unknown) (no (unknown) (unknown) Globulin (units (unkno wn) date) (1.7-4.1) g/dL unknown) (unknown) (no (unknown) (unknown) Globulin (units (unkno wn) date) (1.7-4.1) g/dL unknown) (unknown) (no (unknown) (unknown) Globulin 2.9 (units (unknown) date) (1.7-4.1) g/dL unknown) (unknown) (no (unknown) (unknown) Glucose (units (unkno wn) date) (80-110) mg/dL unknown) (unknown) (no (unknown) (unknown) Glucose (units (unkno wn) date) (80-110) mg/dL unknown) (unknown) (no (unknown) (unknown) Glucose 124 H (units (unknown) date) (80-110) mg/dL unknown) (unknown) (no (unknown) (unknown) Glucose POC 118 (units (unknown) date) unknown) (unknown) (no (unknown) (unknown) H/O arthroscopic (units (unknown) date) knee surgery unknown) (11/14/17) (unknown) (no (unknown) (unknown) HEAD: Superficial (units (unknown) date) abrasion on the unknown) bridge of his nose, no other obvious (unknown) (no (unknown) (unknown) HEENT: See HPI (units (unknown) date) unknown) (unknown) (no (unknown) (unknown) HPI - Fall (units (unk nown) date) unknown) (unknown) (no (unknown) (unknown) HPI Narrative: (units (unknown) date) unknown) (unknown) (no (unknown) (unknown) Hand X-Ray (units (unk nown) date) (Signed) unknown) (unknown) (no (unknown) (unknown) Jean Oneill (units (unknown) date) unknown) (unknown) (no (unknown) (unknown) Hct (41-53) % (units (unknown) date) unknown) (unknown) (no (unknown) (unknown) Hct (41-53) % (units (unknown) date) unknown) (unknown) (no (unknown) (unknown) Hct 46.0 (units (unkn own) date) (41-53) % unknown) (unknown) (no (unknown) (unknown) Head CT (Signed) (units (unknown) date) unknown) (unknown) (no (unknown) (unknown) Head/Neck CTA (units ( unknown) date) (Signed) unknown) (unknown) (no (unknown) (unknown) Hgb (units (unkno wn) date) (13.5-17.5) g/dL unknown) (unknown) (no (unknown) (unknown) Hgb (13.5-17.5) (units (unknown) date) g/dL unknown) (unknown) (no (unknown) (unknown) Hgb 15.6 (units (unkn own) date) (13.5-17.5) g/dL unknown) (unknown) (no (unknown) (unknown) History of Present (units (unknown) date) Illness unknown) (unknown) (no (unknown) (unknown) History of aortic (units (unknown) date) dissection unknown) () (unknown) (no (unknown) (unknown) History of (units (unk nown) date) arthroplasty of unknown) right knee (unknown) (no (unknown) (unknown) 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 (unknown) (no (unknown) (unknown) History of cardiac (units (unknown) date) cath () unknown) (unknown) (no (unknown) (unknown) History of (units (unk nown) date) esophageal surgery unknown) (unknown) (no (unknown) (unknown) History of (units (unk nown) date) incision and unknown) drainage () (unknown) (no (unknown) (unknown) History of prior (units (unknown) date) ablation treatment unknown) () (unknown) (no (unknown) (unknown) History of surgery (units (unknown) date) unknown) (unknown) (no (unknown) (unknown) Vidal,Ronni (units (unk nown) date) unknown) (unknown) (no (unknown) (unknown) Hx of (units (unkno wn) date) cholecystectomy unknown) (unknown) (no (unknown) (unknown) Hx of hernia (units (u nknown) date) repair unknown) (unknown) (no (unknown) (unknown) Hx of sinus (units (un known) date) surgery unknown) (unknown) (no (unknown) (unknown) Hydralazine HCl (units (unknown) date) (Hydralazine 20 unknown) Mg/Ml Vial) 10 mg IV NOW ONE (unknown) (no (unknown) (unknown) Hydromorphone HCl (units (unknown) date) (Hydromorphone 0.5 unknown) Mg Inj) 0.5 mg IV NOW ONE (unknown) (no (unknown) (unknown) Hypertension (units (u nknown) date) unknown) (unknown) (no (unknown) (unknown) IMPRESSION:? (units (u nknown) date) unknown) (unknown) (no (unknown) (unknown) INDICATIONS:? (units ( unknown) date) trauma unknown) (unknown) (no (unknown) (unknown) INHIBITOR] (units (unk nown) date) unknown) (unknown) (no (unknown) (unknown) Image quality:? (units (unknown) date) Excellent.? unknown) (unknown) (no (unknown) (unknown) Image quality:? (units (unknown) date) There is motion unknown) artifact limiting evaluation.? (unknown) (no (unknown) (unknown) Imaging Data (units (u nknown) date) unknown) (unknown) (no (unknown) (unknown) Inhibitor (units (unkn own) date) MUSCLES unknown) (unknown) (no (unknown) (unknown) Initial Vital (units ( unknown) date) Signs unknown) (unknown) (no (unknown) (unknown) Initial Vital (units ( unknown) date) Signs: unknown) (unknown) (no (unknown) (unknown) Ischemic (units (unkno wn) date) cardiomyopathy unknown) (unknown) (no (unknown) (unknown) Theodore,Exmore (units (unknown) date) unknown) (unknown) (no (unknown) (unknown) Shadi,Bharath (units ( unknown) date) unknown) (unknown) (no (unknown) (unknown) Knee X-Ray (units (unk nown) date) (Signed) unknown) (unknown) (no (unknown) (unknown) Lab Data (units (unkno wn) date) unknown) (unknown) (no (unknown) (unknown) Labs: (units (unkno wn) date) unknown) (unknown) (no (unknown) (unknown) Lactate (units (unkno wn) date) (0.7-2.1) mmol/L unknown) (unknown) (no (unknown) (unknown) Lactate 2.3 H (units (unknown) date) (0.7-2.1) mmol/L unknown) (unknown) (no (unknown) (unknown) Lactate 1.5 (units ( unknown) date) (0.7-2.1) mmol/L unknown) (unknown) (no (unknown) (unknown) Lisinopril (units (unk nown) date) (Lisinopril 10 Mg unknown) Tablet) 10 mg PO DAILY BLOSSOM (unknown) (no (unknown) (unknown) Lisinopril (units (unk nown) date) (Lisinopril 20 Mg unknown) Tablet) 20 mg PO NOW ONE (unknown) (no (unknown) (unknown) Satish Jarrett (units (unkno wn) date) unknown) (unknown) (no (unknown) (unknown) Loc: ED (units (unkno wn) date) unknown) (unknown) (no (unknown) (unknown) Lorazepam (units (unkn own) date) (Lorazepam 1 Mg unknown) Tablet) 0 mg PO CIWAPRN PRN; Protocol (unknown) (no (unknown) (unknown) Lorazepam (units (unkn own) date) (Lorazepam 2 Mg/Ml unknown) Inj) 0 mg IV CIWAPRN PRN; Protocol (unknown) (no (unknown) (unknown) Lorazepam (units (unkn own) date) (Lorazepam 2 Mg/Ml unknown) Inj) 1 mg IV NOW ONE (unknown) (no (unknown) (unknown) Lorazepam (units (unkn own) date) (Lorazepam 2 Mg/Ml unknown) Inj) 2 mg IV NOW ONE (unknown) (no (unknown) (unknown) Lumbar Spine MRI (units (unknown) date) (Signed) unknown) (unknown) (no (unknown) (unknown) Lymph # (Auto) (units (unknown) date) ([id number]) /uL unknown) (unknown) (no (unknown) (unknown) Lymph # (Auto) (units (unknown) date) (7026-1736) /uL unknown) (unknown) (no (unknown) (unknown) Lymph # (Auto) (units (unknown) date) 1700 (0404-3949) unknown) /uL (unknown) (no (unknown) (unknown) Lymph % (Auto) (units (unknown) date) (25-40) % unknown) (unknown) (no (unknown) (unknown) Lymph % (Auto) (units (unknown) date) (25-40) % unknown) (unknown) (no (unknown) (unknown) Lymph % (Auto) (units (unknown) date) 23.0 L (25-40) unknown) % (unknown) (no (unknown) (unknown) MCH (26-34) (units (unknown) date) PG unknown) (unknown) (no (unknown) (unknown) MCH (26-34) PG (units (unknown) date) unknown) (unknown) (no (unknown) (unknown) MCH 31.7 (units (unkn own) date) (26-34) PG unknown) (unknown) (no (unknown) (unknown) MCHC (30-36) (units (unknown) date) % unknown) (unknown) (no (unknown) (unknown) MCHC (30-36) % (units (unknown) date) unknown) (unknown) (no (unknown) (unknown) MCHC 34.0 (units (unk nown) date) (30-36) % unknown) (unknown) (no (unknown) (unknown) MCV (80-100) (units (unknown) date) fL unknown) (unknown) (no (unknown) (unknown) MCV (80-100) (units (unknown) date) fL unknown) (unknown) (no (unknown) (unknown) MCV 93.3 (units (unkn own) date) (80-100) fL unknown) (unknown) (no (unknown) (unknown) MDM - Fall (units (unk nown) date) unknown) (unknown) (no (unknown) (unknown) MR#: [id number] (units (unknown) date) unknown) (unknown) (no (unknown) (unknown) MUSCULOSKELETAL: (units (unknown) date) See HPI unknown) (unknown) (no (unknown) (unknown) Medical History (units (unknown) date) (Reviewed 12/08/21 unknown) @ 13:50 by Aditya Tapia DO) (unknown) (no (unknown) (unknown) Cheryl Husain (units (unknown) date) unknown) (unknown) (no (unknown) (unknown) Methocarbamol (units ( unknown) date) (Methocarbamol 500 unknown) Mg Tablet) 500 mg PO TID PRN (unknown) (no (unknown) (unknown) Metoprolol (units (unk nown) date) Succinate unknown) (Metoprolol Er 50 Mg Tablet) 100 mg PO DAILY BLOSSOM (unknown) (no (unknown) (unknown) Metoprolol (units (unk nown) date) Tartrate unknown) (Metoprolol Ir 25 Mg Tablet) 100 mg PO NOW ONE (unknown) (no (unknown) (unknown) Mode of arrival: (units (unknown) date) EMS unknown) (unknown) (no (unknown) (unknown) [place] # (Auto) (units ( unknown) date) (0-900) /uL unknown) (unknown) (no (unknown) (unknown) [place] # (Auto) (units ( unknown) date) (0-900) /uL unknown) (unknown) (no (unknown) (unknown) [place] # (Auto) 700 (units (unknown) date) (0-900) /uL unknown) (unknown) (no (unknown) (unknown) [place] % (Auto) (units ( unknown) date) (3-14) % unknown) (unknown) (no (unknown) (unknown) [place] % (Auto) (units ( unknown) date) (3-14) % unknown) (unknown) (no (unknown) (unknown) [place] % (Auto) 9.5 (units (unknown) date) (3-14) % unknown) (unknown) (no (unknown) (unknown) Mother (units (unknown) date) Stroke unknown) (unknown) (no (unknown) (unknown) Multivitamins (units ( unknown) date) (Multivitamin 1 unknown) Tablet) 1 tab PO DAILY BLOSSOM (unknown) (no (unknown) (unknown) NECK: Trachea (units ( unknown) date) midline. Non tender unknown) (unknown) (no (unknown) (unknown) NEURO: Cranial (units (unknown) date) nerves 2-12 grossly unknown) intact (unknown) (no (unknown) (unknown) NEUROLOGIC: Denies (units (unknown) date) weakness, headache, unknown) numbness, change in speech, confusion, (unknown) (no (unknown) (unknown) NOW ONE (units (unkno wn) date) unknown) (unknown) (no (unknown) (unknown) Naloxone HCl (units (u nknown) date) (Naloxone 0.4 Mg/Ml unknown) Vial) 0.2 mg IV Q2MIN PRN (unknown) (no (unknown) (unknown) Narcotic (units (unkno wn) date) dependence unknown) (unknown) (no (unknown) (unknown) Narrative (units (unkn own) date) unknown) (unknown) (no (unknown) (unknown) Narrative: (units (unk nown) date) unknown) (unknown) (no (unknown) (unknown) Neck pain, chronic (units (unknown) date) unknown) (unknown) (no (unknown) (unknown) Neut # (Auto) (units ( unknown) date) (8147-5333) /uL unknown) (unknown) (no (unknown) (unknown) Neut # (Auto) (units ( unknown) date) (0586-2748) /uL unknown) (unknown) (no (unknown) (unknown) Neut # (Auto) (units ( unknown) date) 4800 (1336-8201) unknown) /uL (unknown) (no (unknown) (unknown) Neut % (Auto) (units ( unknown) date) (50-75) % unknown) (unknown) (no (unknown) (unknown) Neut % (Auto) (units ( unknown) date) (50-75) % unknown) (unknown) (no (unknown) (unknown) Neut % (Auto) (units ( unknown) date) 64.7 (50-75) % unknown) (unknown) (no (unknown) (unknown) No scleral (units (unk nown) date) icterus. No unknown) injection or drainage. (unknown) (no (unknown) (unknown) Noncontrast 3 mm (units (unknown) date) thick sections unknown) acquired from the skull base to the T4 level.? (unknown) (no (unknown) (unknown) Noncontrast 4.5 mm (units (unknown) date) thick angled axial unknown) sections acquired from the foramen magnum (unknown) (no (unknown) (unknown) Ondansetron HCl (units (unknown) date) (Ondansetron 4 Mg/2 unknown) Ml Inj) 4 mg IV NOW ONE (unknown) (no (unknown) (unknown) Ondansetron HCl (units (unknown) date) (Ondansetron 4 Mg/2 unknown) Ml Inj) 4 mg IV Q4HR PRN (unknown) (no (unknown) (unknown) Ordered: (units (unkno wn) date) unknown) (unknown) (no (unknown) (unknown) Ordering Provider: (units (unknown) date) [place],Jung D.O. unknown) (unknown) (no (unknown) (unknown) Orders (units (unkno wn) date) unknown) (unknown) (no (unknown) (unknown) Oxycodone HCl (units ( unknown) date) (Oxycodone Ir 10 Mg unknown) Tablet) 10 mg PO Q6HR PRN (unknown) (no (unknown) (unknown) Oxycodone HCl (units ( unknown) date) (Oxycodone Ir 5 Mg unknown) Tablet) 5 mg PO Q4HR PRN (unknown) (no (unknown) (unknown) Oxycodone/Acetamino (units (unknown) date) phen unknown) (Oxycodone/Acetamin ophen 5/325 Tablet) 1 tab PO NOW ONE (unknown) (no (unknown) (unknown) PROCEDURE:? CT (units (unknown) date) CERVICAL SPINE WO unknown) CON (unknown) (no (unknown) (unknown) PROCEDURE:? CT (units (unknown) date) HEAD/BRAIN WO CON unknown) (unknown) (no (unknown) (unknown) PSYCHIATRIC: No (units (unknown) date) concerning unknown) psychosocial issues. (unknown) (no (unknown) (unknown) Pantoprazole (units (u nknown) date) Sodium unknown) (Pantoprazole 40 Mg Vial) 40 mg IV NOW ONE (unknown) (no (unknown) (unknown) Patient (units (unkno wn) date) Disposition: unknown) Admitted As Inpatient (unknown) (no (unknown) (unknown) Patient History (units (unknown) date) unknown) (unknown) (no (unknown) (unknown) Patient getting (units (unknown) date) shaky, sweaty, unknown) tachycardic, HTN, sweaty, and developing N/V/D. (unknown) (no (unknown) (unknown) Patient observed (units (unknown) date) for some time unknown) before labs added. He has continued to have a (unknown) (no (unknown) (unknown) Patient: (units (unkno wn) date) Dominic Viveros unknown) MR#: M (unknown) (no (unknown) (unknown) Patient: (units (unkno wn) date) Dominic Viveros unknown) (unknown) (no (unknown) (unknown) Maxim Valadez (units (un known) date) unknown) (unknown) (no (unknown) (unknown) Phenobarbital (units ( unknown) date) (Phenobarbital 65 unknown) Mg/Ml Vial) 260 mg IV NOW ONE (unknown) (no (unknown) (unknown) Phenobarbital (units ( unknown) date) (Phenobarbital 65 unknown) Mg/Ml Vial) 65 mg IV NOW ONE (unknown) (no (unknown) (unknown) Potassium (units (unkn own) date) (3.4-5.1) mmol/L unknown) (unknown) (no (unknown) (unknown) Potassium (units (unkn own) date) (3.4-5.1) mmol/L unknown) (unknown) (no (unknown) (unknown) Potassium 4.5 (units (unknown) date) (3.4-5.1) mmol/L unknown) (unknown) (no (unknown) (unknown) Procedure: CT (units ( unknown) date) cervical spine wo unknown) con (unknown) (no (unknown) (unknown) Procedure: CT (units ( unknown) date) head/brain wo con unknown) (unknown) (no (unknown) (unknown) Prolactin (units (unkn own) date) (3.7-17.9) ng/mL unknown) (unknown) (no (unknown) (unknown) Prolactin (units (unkn own) date) (3.7-17.9) ng/mL unknown) (unknown) (no (unknown) (unknown) Prolactin 18.9 H (units (unknown) date) (3.7-17.9) ng/mL unknown) (unknown) (no (unknown) (unknown) Pulse Oximetry 92 (units (unknown) date) 12/07/21 20:23 unknown) (unknown) (no (unknown) (unknown) Pulse Oximetry 96 (units (unknown) date) 93 unknown) (unknown) (no (unknown) (unknown) Pulse Oximetry 92 (units (unknown) date) 96 unknown) (unknown) (no (unknown) (unknown) Pulse Rate 67 66 (units (unknown) date) unknown) (unknown) (no (unknown) (unknown) Pulse Rate 88 (units (unknown) date) 12/07/21 20:23 unknown) (unknown) (no (unknown) (unknown) Pulse Rate 64 68 (units (unknown) date) 69 unknown) (unknown) (no (unknown) (unknown) RDW (units (unkno wn) date) (11.6-14.8) % unknown) (unknown) (no (unknown) (unknown) RDW (11.6-14.8) (units (unknown) date) % unknown) (unknown) (no (unknown) (unknown) RDW 13.7 (units (unkn own) date) (11.6-14.8) % unknown) (unknown) (no (unknown) (unknown) RESPIRATORY: Clear (units (unknown) date) to auscultation. unknown) Breath sounds equal bilaterally. No wheezes, (unknown) (no (unknown) (unknown) RESPIRATORY: (units (u nknown) date) Denies dyspnea, unknown) cough, wheezing, hemoptysis, sputum. (unknown) (no (unknown) (unknown) Dominic Viveros (units (unknown) date) D??76??M?? unknown) 5 (unknown) (no (unknown) (unknown) Reevaluation #1: (units (unknown) date) unknown) (unknown) (no (unknown) (unknown) Reevaluation #2: (units (unknown) date) unknown) (unknown) (no (unknown) (unknown) Reevaluation(s) (units (unknown) date) unknown) (unknown) (no (unknown) (unknown) Related Data (units (u nknown) date) unknown) (unknown) (no (unknown) (unknown) Respiratory Rate (units (unknown) date) 17 19 unknown) (unknown) (no (unknown) (unknown) Respiratory Rate (units (unknown) date) 22 12/07/21 20:23 unknown) (unknown) (no (unknown) (unknown) Respiratory Rate (units (unknown) date) 18 18 20 unknown) (unknown) (no (unknown) (unknown) Result diagrams: (units (unknown) date) unknown) (unknown) (no (unknown) (unknown) Review of Systems (units (unknown) date) unknown) (unknown) (no (unknown) (unknown) Emeka Robertson (units (unknown) date) unknown) (unknown) (no (unknown) (unknown) Sudarshan Calderon (units (u nknown) date) unknown) (unknown) (no (unknown) (unknown) S/P CABG x 3 (units (u nknown) date) (-08/2007) unknown) (unknown) (no (unknown) (unknown) S/P cervical (units (u nknown) date) spinal fusion unknown) (unknown) (no (unknown) (unknown) S/P lumbar fusion (units (unknown) date) unknown) (unknown) (no (unknown) (unknown) SARS-CoV-2 (PCR) (units (unknown) date) (Negative) unknown) (unknown) (no (unknown) (unknown) SARS-CoV-2 (PCR) (units (unknown) date) (Negative) unknown) (unknown) (no (unknown) (unknown) SARS-CoV-2 (PCR) (units (unknown) date) Negative unknown) (Negative) (unknown) (no (unknown) (unknown) SKIN: Denies rash, (units (unknown) date) skin lesions, or unknown) other (unknown) (no (unknown) (unknown) SKIN: No rash or (units (unknown) date) erythema of visible unknown) areas (unknown) (no (unknown) (unknown) Sagittal (units (unkno wn) date) unknown) (unknown) (no (unknown) (unknown) Salicylates (units (un known) date) (<20) mg/dL unknown) (unknown) (no (unknown) (unknown) Salicylates (units (un known) date) (<20) mg/dL unknown) (unknown) (no (unknown) (unknown) Salicylates < (units (unknown) date) 1.0 (<20) mg/dL unknown) (unknown) (no (unknown) (unknown) Signed By: (units (unk nown) date) unknown) (unknown) (no (unknown) (unknown) Sinuses:? (units (unkn own) date) Visualized sinuses unknown) redemonstrate wall thickening and mucoperiosteal (unknown) (no (unknown) (unknown) Skull and face:? (units (unknown) date) Calvarium and unknown) visualized facial bones appear intact, without (unknown) (no (unknown) (unknown) Smoking Status: (units (unknown) date) Former smoker unknown) (unknown) (no (unknown) (unknown) Smoking Status: (units (unknown) date) Former smoker unknown) (unknown) (no (unknown) (unknown) Social History (units (unknown) date) (Reviewed 12/08/21 unknown) @ 01:57 by Jung Dejesus DO) (unknown) (no (unknown) (unknown) Sodium (units (unkno wn) date) (137-145) mmol/L unknown) (unknown) (no (unknown) (unknown) Sodium (units (unkno wn) date) (137-145) mmol/L unknown) (unknown) (no (unknown) (unknown) Sodium 140 (units (u nknown) date) (137-145) mmol/L unknown) (unknown) (no (unknown) (unknown) Sodium Chloride (units (unknown) date) (Normal Saline unknown) 0.9%) 1,000 mls @ 150 mls/hr IV CONT BLOSSOM (unknown) (no (unknown) (unknown) Sodium Chloride (units (unknown) date) (Sodium Chloride unknown) 0.9% Flush) 10 ml IV BID BLOSSOM (unknown) (no (unknown) (unknown) Sodium Chloride (units (unknown) date) (Sodium Chloride unknown) 0.9% Flush) 10 ml IV PRN PRN (unknown) (no (unknown) (unknown) Soft tissues:? (units (unknown) date) Prevertebral soft unknown) tissues are normal in thickness.? No (unknown) (no (unknown) (unknown) Source: patient, (units (unknown) date) family and EMS unknown) (unknown) (no (unknown) (unknown) Spoke with (units (unk nown) date) hospitalist, unknown) Willie, he will accept patient for admit (unknown) (no (unknown) (unknown) Stated Complaint: (units (unknown) date) Back Pain unknown) (unknown) (no (unknown) (unknown) Wojoqzo-LKN-CbV (units (unknown) date) Reductase AdvReac unknown) Mild WEAK Verified 11/28/21 15:33 (unknown) (no (unknown) (unknown) Stool Occult Blood (units (unknown) date) Positive unknown) (unknown) (no (unknown) (unknown) Strong concern (units (unknown) date) that he is unknown) developing withdrawals though he denies frequent (unknown) (no (unknown) (unknown) Substance Use (units ( unknown) date) Type: does not use unknown) (unknown) (no (unknown) (unknown) Sulfa (Sulfonamide (units (unknown) date) Allergy Mild RASH unknown) Verified 11/28/21 15:33 (unknown) (no (unknown) (unknown) Surgical History (units (unknown) date) (Reviewed 12/08/21 unknown) @ 13:50 by Aditya Tapia DO) (unknown) (no (unknown) (unknown) Andre Spear (units ( unknown) date) unknown) (unknown) (no (unknown) (unknown) TECHNIQUE:? (units (un known) date) unknown) (unknown) (no (unknown) (unknown) TSH (units (unkno wn) date) (0.47-4.68) uIU/mL unknown) (unknown) (no (unknown) (unknown) TSH (0.47-4.68) (units (unknown) date) uIU/mL unknown) (unknown) (no (unknown) (unknown) TSH 2.07 (units (unkn own) date) (0.47-4.68) uIU/mL unknown) (unknown) (no (unknown) (unknown) Telemetry Strips (units (unknown) date) unknown) (unknown) (no (unknown) (unknown) Temperature (units (un known) date) unknown) (unknown) (no (unknown) (unknown) Temperature 97.4 (units (unknown) date) F L 12/07/21 20:23 unknown) (unknown) (no (unknown) (unknown) Temperature 97.8 (units (unknown) date) F unknown) (unknown) (no (unknown) (unknown) There is a small (units (unknown) date) right choroidal unknown) fissure cyst redemonstrated.? (unknown) (no (unknown) (unknown) There is mild (units ( unknown) date) cerebral volume unknown) loss, with resultant ventricular and sulcal (unknown) (no (unknown) (unknown) Thiamine HCl (units (u nknown) date) (Thiamine 100 Mg unknown) Tablet) 100 mg PO DAILY BLOSSOM (unknown) (no (unknown) (unknown) Tibia/Fibula X-Ray (units (unknown) date) (Signed) unknown) (unknown) (no (unknown) (unknown) Time Seen by (units (u nknown) date) Provider: 12/07/21 unknown) 20:22 (unknown) (no (unknown) (unknown) Time: 06:09 (units (un known) date) unknown) (unknown) (no (unknown) (unknown) Time: 08:06 (units (un known) date) unknown) (unknown) (no (unknown) (unknown) Total Bilirubin (units (unknown) date) (0.2-1.3) mg/dL unknown) (unknown) (no (unknown) (unknown) Total Bilirubin (units (unknown) date) (0.2-1.3) mg/dL unknown) (unknown) (no (unknown) (unknown) Total Bilirubin (units (unknown) date) 0.9 (0.2-1.3) unknown) mg/dL (unknown) (no (unknown) (unknown) Total Protein (units ( unknown) date) (6.3-8.2) g/dL unknown) (unknown) (no (unknown) (unknown) Total Protein (units ( unknown) date) (6.3-8.2) g/dL unknown) (unknown) (no (unknown) (unknown) Total Protein (units ( unknown) date) 7.0 (6.3-8.2) unknown) g/dL (unknown) (no (unknown) (unknown) Trazodone HCl (units ( unknown) date) (Trazodone 100 Mg unknown) Tablet) 100 mg PO BEDTIME PRN (unknown) (no (unknown) (unknown) Trazodone HCl (units ( unknown) date) (Trazodone 100 Mg unknown) Tablet) 300 mg PO BEDTIME BLOSSOM (unknown) (no (unknown) (unknown) U Benzodiazepines (units (unknown) date) Scrn (Negative) unknown) (unknown) (no (unknown) (unknown) U Benzodiazepines (units (unknown) date) Scrn Positive H unknown) (Negative) (unknown) (no (unknown) (unknown) U Marijuana (THC) (units (unknown) date) Screen unknown) (Negative) (unknown) (no (unknown) (unknown) U Marijuana (THC) (units (unknown) date) Screen Negative unknown) (Negative) (unknown) (no (unknown) (unknown) U Methamphetamines (units (unknown) date) Scrn (Negative) unknown) (unknown) (no (unknown) (unknown) U Methamphetamines (units (unknown) date) Scrn Negative unknown) (Negative) (unknown) (no (unknown) (unknown) U Opiates 300ng/mL (units (unknown) date) cut (Negative) unknown) (unknown) (no (unknown) (unknown) U Opiates 300ng/mL (units (unknown) date) cut Positive H unknown) (Negative) (unknown) (no (unknown) (unknown) U Tricyclic (units (un known) date) Antidepress unknown) (Negative) (unknown) (no (unknown) (unknown) U Tricyclic (units (un known) date) Antidepress unknown) Negative (Negative) (unknown) (no (unknown) (unknown) Ur Amphetamines (units (unknown) date) Screen unknown) (Negative) (unknown) (no (unknown) (unknown) Ur Amphetamines (units (unknown) date) Screen Negative unknown) (Negative) (unknown) (no (unknown) (unknown) Ur Barbiturates (units (unknown) date) Screen unknown) (Negative) (unknown) (no (unknown) (unknown) Ur Barbiturates (units (unknown) date) Screen Negative unknown) (Negative) (unknown) (no (unknown) (unknown) Ur Culture (units (unk nown) date) Indicated? unknown) (unknown) (no (unknown) (unknown) Ur Culture (units (unk nown) date) Indicated? unknown) (unknown) (no (unknown) (unknown) Ur Culture (units (unk nown) date) Indicated? Cult unknown) not indicated (unknown) (no (unknown) (unknown) Ur Leukocyte (units (u nknown) date) Esterase unknown) (NEGATIVE) (unknown) (no (unknown) (unknown) Ur Leukocyte (units (u nknown) date) Esterase unknown) (NEGATIVE) (unknown) (no (unknown) (unknown) Ur Leukocyte (units (u nknown) date) Esterase unknown) Negative (NEGATIVE) (unknown) (no (unknown) (unknown) Ur MDMA Scrn (units (u nknown) date) (Ecstasy) unknown) (Negative) (unknown) (no (unknown) (unknown) Ur MDMA Scrn (units (u nknown) date) (Ecstasy) Negative unknown) (Negative) (unknown) (no (unknown) (unknown) Ur Oxycodone (units (u nknown) date) Screen unknown) (Negative) (unknown) (no (unknown) (unknown) Ur Oxycodone (units (u nknown) date) Screen Negative unknown) (Negative) (unknown) (no (unknown) (unknown) Ur Phencyclidine (units (unknown) date) Scrn (Negative) unknown) (unknown) (no (unknown) (unknown) Ur Phencyclidine (units (unknown) date) Scrn Negative unknown) (Negative) (unknown) (no (unknown) (unknown) Ur Specific (units (un known) date) [place] unknown) (1.000-1.035) (unknown) (no (unknown) (unknown) Ur Specific (units (un known) date) [place] unknown) (1.000-1.035) (unknown) (no (unknown) (unknown) Ur Specific (units (un known) date) [place] 1.020 unknown) (1.000-1.035) (unknown) (no (unknown) (unknown) Ur Squamous Epith (units (unknown) date) Cells (0-5/HPF) unknown) (unknown) (no (unknown) (unknown) Ur Squamous Epith (units (unknown) date) Cells (0-5/HPF) unknown) (unknown) (no (unknown) (unknown) Ur Squamous Epith (units (unknown) date) Cells 0-1 /hpf unknown) (0-5/HPF) (unknown) (no (unknown) (unknown) Urine Appearance (units (unknown) date) unknown) (unknown) (no (unknown) (unknown) Urine Appearance (units (unknown) date) unknown) (unknown) (no (unknown) (unknown) Urine Appearance (units (unknown) date) Clear unknown) (unknown) (no (unknown) (unknown) Urine Bacteria (units (unknown) date) (None) unknown) (unknown) (no (unknown) (unknown) Urine Bacteria (units (unknown) date) (None) unknown) (unknown) (no (unknown) (unknown) Urine Bacteria (units (unknown) date) None seen (None) unknown) (unknown) (no (unknown) (unknown) Urine Bilirubin (units (unknown) date) (NEGATIVE) unknown) (unknown) (no (unknown) (unknown) Urine Bilirubin (units (unknown) date) (NEGATIVE) unknown) (unknown) (no (unknown) (unknown) Urine Bilirubin (units (unknown) date) Negative unknown) (NEGATIVE) (unknown) (no (unknown) (unknown) Urine Cocaine (units ( unknown) date) Screen unknown) (Negative) (unknown) (no (unknown) (unknown) Urine Cocaine (units ( unknown) date) Screen Negative unknown) (Negative) (unknown) (no (unknown) (unknown) Urine Color (units (un known) date) unknown) (unknown) (no (unknown) (unknown) Urine Color (units (un known) date) unknown) (unknown) (no (unknown) (unknown) Urine Color (units (un known) date) Yellow unknown) (unknown) (no (unknown) (unknown) Urine Glucose (UA) (units (unknown) date) (Negative) unknown) g/dL (unknown) (no (unknown) (unknown) Urine Glucose (UA) (units (unknown) date) (Negative) g/dL unknown) (unknown) (no (unknown) (unknown) Urine Glucose (UA) (units (unknown) date) Negative unknown) (Negative) g/dL (unknown) (no (unknown) (unknown) Urine Ketones (units ( unknown) date) (NEGATIVE) unknown) (unknown) (no (unknown) (unknown) Urine Ketones (units ( unknown) date) (NEGATIVE) unknown) (unknown) (no (unknown) (unknown) Urine Ketones (units ( unknown) date) Trace H (NEGATIVE) unknown) (unknown) (no (unknown) (unknown) Urine Methadone (units (unknown) date) Screen unknown) (Negative) (unknown) (no (unknown) (unknown) Urine Methadone (units (unknown) date) Screen Negative unknown) (Negative) (unknown) (no (unknown) (unknown) Urine Nitrate (units ( unknown) date) (Negative) unknown) (unknown) (no (unknown) (unknown) Urine Nitrate (units ( unknown) date) (Negative) unknown) (unknown) (no (unknown) (unknown) Urine Nitrate (units ( unknown) date) Negative unknown) (Negative) (unknown) (no (unknown) (unknown) Urine Occult Blood (units (unknown) date) (Negative) unknown) (unknown) (no (unknown) (unknown) Urine Occult Blood (units (unknown) date) (Negative) unknown) (unknown) (no (unknown) (unknown) Urine Occult Blood (units (unknown) date) Negative unknown) (Negative) (unknown) (no (unknown) (unknown) Urine Protein (units ( unknown) date) (Negative) unknown) (unknown) (no (unknown) (unknown) Urine Protein (units ( unknown) date) (Negative) unknown) (unknown) (no (unknown) (unknown) Urine Protein (units ( unknown) date) Negative unknown) (Negative) (unknown) (no (unknown) (unknown) Urine RBC (units (unkn own) date) (0-5/HPF) unknown) (unknown) (no (unknown) (unknown) Urine RBC (units (unkn own) date) (0-5/HPF) unknown) (unknown) (no (unknown) (unknown) Urine RBC None (units (unknown) date) seen (0-5/HPF) unknown) (unknown) (no (unknown) (unknown) Urine Urobilinogen (units (unknown) date) (0.2) E.U./dL unknown) (unknown) (no (unknown) (unknown) Urine Urobilinogen (units (unknown) date) (0.2) E.U./dL unknown) (unknown) (no (unknown) (unknown) Urine Urobilinogen (units (unknown) date) 0.2 (0.2) unknown) E.U./dL (unknown) (no (unknown) (unknown) Urine WBC (units (unkn own) date) (0-5/HPF) unknown) (unknown) (no (unknown) (unknown) Urine WBC (units (unkn own) date) (0-5/HPF) unknown) (unknown) (no (unknown) (unknown) Urine WBC None (units (unknown) date) seen (0-5/HPF) unknown) (unknown) (no (unknown) (unknown) Urine pH (units (unkno wn) date) (4.5-8.0) unknown) (unknown) (no (unknown) (unknown) Urine pH (units (unkno wn) date) (4.5-8.0) unknown) (unknown) (no (unknown) (unknown) Urine pH 5.0 (units (unknown) date) (4.5-8.0) unknown) (unknown) (no (unknown) (unknown) Vascular (units (unkno wn) date) Ultrasound (Signed) unknown) (unknown) (no (unknown) (unknown) Ventricular (units (un known) date) bigeminy unknown) (unknown) (no (unknown) (unknown) Vital Signs (units (un known) date) unknown) (unknown) (no (unknown) (unknown) Vital signs: (units (u nknown) date) unknown) (unknown) (no (unknown) (unknown) Charles,Lexx (units (u nknown) date) unknown) (unknown) (no (unknown) (unknown) [Embedded Image (units (unknown) date) Not Available] unknown) (unknown) (no (unknown) (unknown) [[id number] (units (unknown) date) REDUCTASE unknown) (unknown) (no (unknown) (unknown) [SULFA (units (unkno wn) date) (SULFONAMIDE unknown) (unknown) (no (unknown) (unknown) acetaminophen 325 (units (unknown) date) mg tablet 650 mg PO unknown) Q6H PRN #60 tab 11/06/20 (unknown) (no (unknown) (unknown) agree for admit. (units (unknown) date) At this time unknown) nighttime hospitalist is aware and signing out to (unknown) (no (unknown) (unknown) albuterol sulfate (units (unknown) date) 1.25 mg/3 mL 2.5 mg unknown) (6 mL) INHALATION QID #90 ml 11/28/21 (unknown) (no (unknown) (unknown) alcohol intake (units (unknown) date) frequency: unknown) holidays/special occasions only (unknown) (no (unknown) (unknown) alcohol intake: (units (unknown) date) current unknown) (unknown) (no (unknown) (unknown) and coronal (units (un known) date) reformats were then unknown) constructed.? For radiation dose reduction, the (unknown) (no (unknown) (unknown) and shape.? (units (un known) date) unknown) (unknown) (no (unknown) (unknown) appears (units (unkno wn) date) preserved.? There unknown) is intracranial internal carotid artery (unknown) (no (unknown) (unknown) approximately 0.2 (units (unknown) date) cm. unknown) (unknown) (no (unknown) (unknown) approximately 0.4 (units (unknown) date) cm and minimal unknown) anterolisthesis at C3-C4 measuring (unknown) (no (unknown) (unknown) arthropathy (units (un known) date) throughout the unknown) cervical spine.? Visualized superior ribs are (unknown) (no (unknown) (unknown) atherosclerosis.? (units (unknown) date) unknown) (unknown) (no (unknown) (unknown) benzonatate 100 mg (units (unknown) date) capsule 100 mg PO unknown) TID PRN #14 cap 03/05/21 (unknown) (no (unknown) (unknown) buprenorphine (units ( unknown) date) [BUPRENORPHINE] unknown) AdvReac Mild NAUSEA, Verified 11/28/21 15:33 (unknown) (no (unknown) (unknown) buprenorphine, (units (unknown) date) hyoscyamine, unknown) [id number] Reductase Inhibitor, diazepam (unknown) (no (unknown) (unknown) celecoxib (units (unkn own) date) [CELECOXIB] Allergy unknown) Mild SWELLING Verified 11/28/21 15:33 (unknown) (no (unknown) (unknown) cetirizine 10 mg (units (unknown) date) capsule (Zyrtec) 10 unknown) mg PO DAILY 05/22/19 10/08/21 (unknown) (no (unknown) (unknown) chronic back pain, (units (unknown) date) ataxia, AFib, COPD unknown) presents for evaluation of a witnessed (unknown) (no (unknown) (unknown) chronic sinusitis. (units (unknown) date) unknown) (unknown) (no (unknown) (unknown) clonidine HCl 0.1 (units (unknown) date) mg tablet 0.2 mg PO unknown) TID 12/08/21 12/08/21 (unknown) (no (unknown) (unknown) constipation, (units ( unknown) date) melena. unknown) (unknown) (no (unknown) (unknown) consumed a large (units (unknown) date) amount of alcohol unknown) tonight in addition to many other medications (unknown) (no (unknown) (unknown) contusion, (units (unk nown) date) laceration, unknown) hematoma or evidence of depressed skull fracture (unknown) (no (unknown) (unknown) degeneration also (units (unknown) date) demonstrated at unknown) C2-C3 and C3-C4.? There is multilevel moderate (unknown) (no (unknown) (unknown) degenerative disc (units (unknown) date) disease within the unknown) visualized upper thoracic spine.? Mild disc (unknown) (no (unknown) (unknown) diazepam [From (units (unknown) date) Valium] AdvReac unknown) Confusion Verified 11/28/21 15:33 (unknown) (no (unknown) (unknown) diclofenac sodium (units (unknown) date) 1 % topical gel 2 g unknown) TOPICAL QID #100 g 11/19/21 (unknown) (no (unknown) (unknown) difficult time (units ( unknown) date) ambulating and is unknown) unsafe to discharge at this time. His has (unknown) (no (unknown) (unknown) drinking. (units (unkn own) date) Phenobarb ordered unknown) and moved to room with monitor (unknown) (no (unknown) (unknown) ferrous sulfate (units (unknown) date) 325 mg (65 mg 325 unknown) mg PO DAILY 10/19/19 10/08/21 (unknown) (no (unknown) (unknown) fluticasone (units (un known) date) propionate 50 1 unknown) spray INTRANASAL DAILY PRN #0 11/02/17 10/08/21 (unknown) (no (unknown) (unknown) following (units (unkn own) date) unknown) (unknown) (no (unknown) (unknown) furosemide 40 mg (units (unknown) date) tablet (Lasix) 40 unknown) mg PO DAILY 10/08/21 10/08/21 (unknown) (no (unknown) (unknown) glipizide 2.5 mg (units (unknown) date) tablet, extended unknown) 2.5 mg PO DAILY 10/08/21 10/08/21 (unknown) (no (unknown) (unknown) ground level fall. (units (unknown) date) He stumbled and unknown) fell forward, striking his nose. There was (unknown) (no (unknown) (unknown) hematomas.? No (units (unknown) date) apical unknown) pneumothoraces.? (unknown) (no (unknown) (unknown) household members: (units (unknown) date) spouse unknown) (unknown) (no (unknown) (unknown) hyoscyamine (units (un known) date) [HYOSCYAMINE] unknown) AdvReac Mild LEG Verified 11/28/21 15:33 (unknown) (no (unknown) (unknown) intact.? (units (unkno wn) date) unknown) (unknown) (no (unknown) (unknown) iron) (units (unkno wn) date) tablet,delayed unknown) release (unknown) (no (unknown) (unknown) latex [LATEX] (units ( unknown) date) Allergy Mild RASH unknown) Verified 11/28/21 15:33 (unknown) (no (unknown) (unknown) lesions.? (units (unkn own) date) unknown) (unknown) (no (unknown) (unknown) levalbuterol HCl (units (unknown) date) 1.25 mg/3 mL 3 ml unknown) INHALATION Q6H PRN 10/16/18 10/08/21 (unknown) (no (unknown) (unknown) levalbuterol (units (u nknown) date) tartrate 45 1 puff unknown) INHALATION Q4-6H PRN #15 06/22/18 (unknown) (no (unknown) (unknown) lisinopril 10 mg (units (unknown) date) tablet 10 mg PO unknown) DAILY 12/08/21 12/08/21 (unknown) (no (unknown) (unknown) mastoid air cells (units (unknown) date) are clear. unknown) (unknown) (no (unknown) (unknown) mcg/actuation (units ( unknown) date) aerosol inhaler unknown) gram (unknown) (no (unknown) (unknown) mcg/actuation (units ( unknown) date) nasal unknown) (unknown) (no (unknown) (unknown) measuring (units (unkn own) date) unknown) (unknown) (no (unknown) (unknown) meclizine 25 mg (units (unknown) date) tablet 25 mg PO QID unknown) PRN #30 tab 10/09/21 (unknown) (no (unknown) (unknown) methocarbamol 500 (units (unknown) date) mg tablet 500 mg PO unknown) Q8H PRN #14 tab 11/19/21 (unknown) (no (unknown) (unknown) metoprolol (units (unk nown) date) tartrate 100 mg unknown) tablet 100 mg PO DAILY 10/16/18 10/08/21 (unknown) (no (unknown) (unknown) mild distress. (units (unknown) date) GCS 15, smells of unknown) alcohol and slurring his words (unknown) (no (unknown) (unknown) moderate (units (unkno wn) date) unknown) (unknown) (no (unknown) (unknown) multiple levels as (units (unknown) date) described. unknown) (unknown) (no (unknown) (unknown) multivitamin (units (u nknown) date) (Multiple Vitamins) unknown) 1 tab PO DAILY #0 12/20/16 10/08/21 (unknown) (no (unknown) (unknown) no loss of (units (unk nown) date) consciousness and unknown) he has had no nausea or vomiting. He denies any (unknown) (no (unknown) (unknown) other injuries (units (unknown) date) such as neck, back unknown) or extremities. His states that he (unknown) (no (unknown) (unknown) oxycodone 5 mg (units (unknown) date) tablet 10 mg PO unknown) Q4-5H PRN 7 Days #60 tab 12/10/21 (unknown) (no (unknown) (unknown) paravertebral (units ( unknown) date) unknown) (unknown) (no (unknown) (unknown) patient (units (unkno wn) date) unknown) (unknown) (no (unknown) (unknown) prominence.? (units (u nknown) date) unknown) (unknown) (no (unknown) (unknown) release 24 hr (units ( unknown) date) (Glucotrol XL) unknown) (unknown) (no (unknown) (unknown) seizures, (units (unkn own) date) incoordination. unknown) (unknown) (no (unknown) (unknown) sequelae of (units (un known) date) unknown) (unknown) (no (unknown) (unknown) sinusitis.? The (units (unknown) date) unknown) (unknown) (no (unknown) (unknown) size.? (units (unkno wn) date) unknown) (unknown) (no (unknown) (unknown) solution for (units (u nknown) date) nebulization unknown) (unknown) (no (unknown) (unknown) solution for (units (u nknown) date) nebulization unknown) (unknown) (no (unknown) (unknown) spray,suspension (units (unknown) date) unknown) (unknown) (no (unknown) (unknown) study.? There are (units (unknown) date) postsurgical unknown) changes also redemonstrated status post prior (unknown) (no (unknown) (unknown) substance use (units ( unknown) date) type: does not use unknown) (unknown) (no (unknown) (unknown) suspicious (units (unk nown) date) unknown) (unknown) (no (unknown) (unknown) that he would (units ( unknown) date) routinely take. He unknown) is activated as a modified trauma. (unknown) (no (unknown) (unknown) the prior (units (unkn own) date) unknown) (unknown) (no (unknown) (unknown) thickening (units (unk nown) date) unknown) (unknown) (no (unknown) (unknown) to the (units (unkno wn) date) unknown) (unknown) (no (unknown) (unknown) trazodone 100 mg (units (unknown) date) tablet 400 tab PO unknown) BEDTIME 30 Days #120 tab 12/10/21 (unknown) (no (unknown) (unknown) varenicline (units (un known) date) [VARENICLINE] unknown) AdvReac Severe Paranoia Verified 11/28/21 15:33 (unknown) (no (unknown) (unknown) vertex, with (units (u nknown) date) coronal and unknown) sagittal reformats.? For radiation dose reduction, the (unknown) (no (unknown) (unknown) vomiting/hypertens (units (unknown) date) ion/dizziness. He unknown) has spoken with and patient and they (unknown) (no (unknown) (unknown) was used:? (units (unk nown) date) automated exposure unknown) control, adjustment of mA and/or kV according to (unknown) (no (unknown) (unknown) within the (units (unk nown) date) visualized left unknown) maxillary sinus suggesting sequelae of chronic (unknown) (no (unknown) (unknown) without erythema, (units (unknown) date) tonsillar unknown) hypertrophy or exudate. Airway patent. Result panel 70 (unknown) (no date) (unknown) (unknown) (no value) (units (un known) unknown) (unknown) (no date) (unknown) (unknown) NO GROWTH (units (unk nown) AFTER 4 DAYS unknown) Result panel 71 (unknown) (no date) (unknown) (unknown) (no value) (units (un known) unknown) (unknown) (no date) (unknown) (unknown) NO GROWTH (units (unk nown) AFTER 4 DAYS unknown) Result panel 72 (unknown) (no date) (unknown) (unknown) (no value) (units (un known) unknown) (unknown) (no date) (unknown) (unknown) NO GROWTH (units (unk nown) AFTER 5 DAYS unknown) Result panel 73 (unknown) (no date) (unknown) (unknown) (no value) (units (un known) unknown) (unknown) (no date) (unknown) (unknown) NO GROWTH (units (unk nown) AFTER 5 DAYS unknown) Result panel 74 (unknown) (no date) (unknown) (unknown) 0 /uL (unkn own) (unknown) (no date) (unknown) (unknown) 0 /uL (unkn own) (unknown) (no date) (unknown) (unknown) 0.0 % (unkn own) (unknown) (no date) (unknown) (unknown) 0.1 % (unkn own) (unknown) (no date) (unknown) (unknown) [address] /uL (unkn own) (unknown) (no date) (unknown) (unknown) 11.4 X10 3/uL (unkn own) (unknown) (no date) (unknown) (unknown) 13.8 % (unkn own) (unknown) (no date) (unknown) (unknown) 14.0 g/dL (unkn own) (unknown) (no date) (unknown) (unknown) 264 X10 3/uL (unkn own) (unknown) (no date) (unknown) (unknown) 31.6 PG (unkn own) (unknown) (no date) (unknown) (unknown) 34.1 % (unkn own) (unknown) (no date) (unknown) (unknown) 4.44 X10 6/uL (unkn own) (unknown) (no date) (unknown) (unknown) 41.1 % (unkn own) (unknown) (no date) (unknown) (unknown) 5.0 % (unkn own) (unknown) (no date) (unknown) (unknown) 5.1 % (unkn own) (unknown) (no date) (unknown) (unknown) 600 /uL (unkn own) (unknown) (no date) (unknown) (unknown) 600 /uL (unkn own) (unknown) (no date) (unknown) (unknown) 89.8 % (unkn own) (unknown) (no date) (unknown) (unknown) 92.6 fL (unkn own) Result panel 75 (unknown) (no date) (unknown) (unknown) > 60 mL/min (unkn own) (unknown) (no date) (unknown) (unknown) 0.66 mg/dL (unkn own) (unknown) (no date) (unknown) (unknown) 13 mg/dL (unkn own) (unknown) (no date) (unknown) (unknown) 137 mmol/L (unkn own) (unknown) (no date) (unknown) (unknown) 159 mg/dL (unkn own) (unknown) (no date) (unknown) (unknown) 19.7 (units unknown) (unknown) (unknown) (no date) (unknown) (unknown) 29 mmol/L (unkn own) (unknown) (no date) (unknown) (unknown) 3.9 mmol/L (unkn own) (unknown) (no date) (unknown) (unknown) 8.9 mg/dL (unkn own) (unknown) (no date) (unknown) (unknown) 99 mmol/L (unkn own) Result panel 76 (unknown) (no (unknown) (unknown) (no value) (units (unk nown) date) unknown) (unknown) (no (unknown) (unknown) Radiologist's (units ( unknown) date) Impression: unknown) (unknown) (no (unknown) (unknown) (no value) (units (unk nown) date) unknown) (unknown) (no (unknown) (unknown) Date of Service: (units (unknown) date) 12/08/21 unknown) (unknown) (no (unknown) (unknown) (no value) (units (unk nown) date) unknown) (unknown) (no (unknown) (unknown) <Electronically (units (unknown) date) signed by Ezra unknown) MD Kenroy> (unknown) (no (unknown) (unknown) <Electronically (units (unknown) date) signed by Jung unknown) Raymond Dejesus> (unknown) (no (unknown) (unknown) 12/10/21 07:26 (units (unknown) date) unknown) (unknown) (no (unknown) (unknown) 12/11/21 0740 (units ( unknown) date) unknown) (unknown) (no (unknown) (unknown) 01/15/22 0122 (units ( unknown) date) unknown) (unknown) (no (unknown) (unknown) [address] [place] [address] (units (unknown) date) unknown) (unknown) (no (unknown) (unknown) ANXIETY, (units (unkno wn) date) unknown) (unknown) (no (unknown) (unknown) Admin: 12/07/21 (units (unknown) date) 23:25 Dose: 150 unknown) mls/hr (unknown) (no (unknown) (unknown) Admin: 12/08/21 (units (unknown) date) 13:01 Dose: 975 mg unknown) (unknown) (no (unknown) (unknown) Admin: 12/08/21 (units (unknown) date) 13:19 Dose: 100 mg unknown) (unknown) (no (unknown) (unknown) Admin: 12/08/21 (units (unknown) date) 15:00 Dose: 10 mg unknown) (unknown) (no (unknown) (unknown) Admin: 12/08/21 (units (unknown) date) 15:00 Dose: 100 mg unknown) (unknown) (no (unknown) (unknown) Admin: 12/08/21 (units (unknown) date) 16:40 Dose: 2.5 mg unknown) (unknown) (no (unknown) (unknown) Admin: 12/08/21 (units (unknown) date) 17:31 Dose: 2 mg unknown) (unknown) (no (unknown) (unknown) Admin: 12/08/21 (units (unknown) date) 19:42 Dose: 10 ml unknown) (unknown) (no (unknown) (unknown) Admin: 12/08/21 (units (unknown) date) 19:42 Dose: 2 mg unknown) (unknown) (no (unknown) (unknown) Admin: 12/08/21 (units (unknown) date) 19:45 Dose: 2.5 mg unknown) (unknown) (no (unknown) (unknown) Admin: 12/08/21 (units (unknown) date) 21:20 Dose: 10 ml unknown) (unknown) (no (unknown) (unknown) Admin: 12/08/21 (units (unknown) date) 21:20 Dose: 300 mg unknown) (unknown) (no (unknown) (unknown) Admin: 12/08/21 (units (unknown) date) 21:24 Dose: 2 mg unknown) (unknown) (no (unknown) (unknown) Admin: 12/08/21 (units (unknown) date) 22:33 Dose: 2 mg unknown) (unknown) (no (unknown) (unknown) Admin: 12/08/21 (units (unknown) date) 22:37 Dose: 25 mg unknown) (unknown) (no (unknown) (unknown) Admin: 12/08/21 (units (unknown) date) 22:38 Dose: 500 mg unknown) (unknown) (no (unknown) (unknown) Admin: 12/09/21 (units (unknown) date) 00:04 Dose: 10 mg unknown) (unknown) (no (unknown) (unknown) Admin: 12/09/21 (units (unknown) date) 03:59 Dose: 975 mg unknown) (unknown) (no (unknown) (unknown) Admin: 12/09/21 (units (unknown) date) 04:10 Dose: 2.5 mg unknown) (unknown) (no (unknown) (unknown) Admin: 12/09/21 (units (unknown) date) 06:58 Dose: 10 mg unknown) (unknown) (no (unknown) (unknown) Admin: 12/09/21 (units (unknown) date) 07:39 Dose: 2 mg unknown) (unknown) (no (unknown) (unknown) Admin: 12/09/21 (units (unknown) date) 10:03 Dose: 40 mg unknown) (unknown) (no (unknown) (unknown) Admin: 12/09/21 (units (unknown) date) 10:03 Dose: Not unknown) Given (unknown) (no (unknown) (unknown) Admin: 12/09/21 (units (unknown) date) 10:42 Dose: 25 mg unknown) (unknown) (no (unknown) (unknown) Admin: 12/09/21 (units (unknown) date) 10:52 Dose: Not unknown) Given (unknown) (no (unknown) (unknown) Admin: 12/09/21 (units (unknown) date) 11:41 Dose: 1 mg unknown) (unknown) (no (unknown) (unknown) Admin: 12/09/21 (units (unknown) date) 11:43 Dose: 1 tab unknown) (unknown) (no (unknown) (unknown) Admin: 12/09/21 (units (unknown) date) 11:44 Dose: Not unknown) Given (unknown) (no (unknown) (unknown) Admin: 12/09/21 (units (unknown) date) 11:54 Dose: Not unknown) Given (unknown) (no (unknown) (unknown) Admin: 12/09/21 (units (unknown) date) 11:59 Dose: 500 mg unknown) (unknown) (no (unknown) (unknown) Admin: 12/09/21 (units (unknown) date) 11:59 Dose: 975 mg unknown) (unknown) (no (unknown) (unknown) Admin: 12/09/21 (units (unknown) date) 12:13 Dose: 1 mg unknown) (unknown) (no (unknown) (unknown) Admin: 12/09/21 (units (unknown) date) 12:14 Dose: Not unknown) Given (unknown) (no (unknown) (unknown) Admin: 12/09/21 (units (unknown) date) 16:40 Dose: 2 mg unknown) (unknown) (no (unknown) (unknown) Admin: 12/09/21 (units (unknown) date) 17:57 Dose: Not unknown) Given (unknown) (no (unknown) (unknown) Admin: 12/09/21 (units (unknown) date) 19:11 Dose: 2 mg unknown) (unknown) (no (unknown) (unknown) Admin: 12/09/21 (units (unknown) date) 20:59 Dose: 10 ml unknown) (unknown) (no (unknown) (unknown) Admin: 12/09/21 (units (unknown) date) 21:26 Dose: 25 mg unknown) (unknown) (no (unknown) (unknown) Admin: 12/09/21 (units (unknown) date) 21:27 Dose: 10 mg unknown) (unknown) (no (unknown) (unknown) Admin: 12/09/21 (units (unknown) date) 21:55 Dose: 2 mg unknown) (unknown) (no (unknown) (unknown) Admin: 12/09/21 (units (unknown) date) 22:18 Dose: 2 mg unknown) (unknown) (no (unknown) (unknown) Admin: 12/09/21 (units (unknown) date) 23:21 Dose: 500 mg unknown) (unknown) (no (unknown) (unknown) Admin: 12/09/21 (units (unknown) date) 23:27 Dose: 2 mg unknown) (unknown) (no (unknown) (unknown) Allergies (units (unkn own) date) unknown) (unknown) (no (unknown) (unknown) [place] (units ( unknown) date) [id number] unknown) (unknown) (no (unknown) (unknown) CT Scan Report (units (unknown) date) unknown) (unknown) (no (unknown) (unknown) Close (units (unkno wn) date) unknown) (unknown) (no (unknown) (unknown) DIZZINESS (units (unkn own) date) unknown) (unknown) (no (unknown) (unknown) Documented By: [facility] (units (unknown) date) unknown) (unknown) (no (unknown) (unknown) Documented By: CM (units (unknown) date) unknown) (unknown) (no (unknown) (unknown) Documented By: EJ (units (unknown) date) unknown) (unknown) (no (unknown) (unknown) Documented By: JYaneth (units (unknown) date) unknown) (unknown) (no (unknown) (unknown) Documented By: JZ (units (unknown) date) unknown) (unknown) (no (unknown) (unknown) Documented By: KB (units (unknown) date) unknown) (unknown) (no (unknown) (unknown) Documented By: (units (unknown) date) KB(2) unknown) (unknown) (no (unknown) (unknown) Documented By: [facility]H (units (unknown) date) unknown) (unknown) (no (unknown) (unknown) Documented By: KK (units (unknown) date) unknown) (unknown) (no (unknown) (unknown) Documented By: KP (units (unknown) date) unknown) (unknown) (no (unknown) (unknown) Documented By: MK (units (unknown) date) unknown) (unknown) (no (unknown) (unknown) Documented By: NC (units (unknown) date) unknown) (unknown) (no (unknown) (unknown) Documented By: RL (units (unknown) date) unknown) (unknown) (no (unknown) (unknown) Documented By: SAT (units (unknown) date) unknown) (unknown) (no (unknown) (unknown) EXPOSURE (units (unkno wn) date) unknown) (unknown) (no (unknown) (unknown) Emergency Report (units (unknown) date) unknown) (unknown) (no (unknown) (unknown) Home Medications (units (unknown) date) unknown) (unknown) (no (unknown) (unknown) [facility] (units (unknown) date) unknown) (unknown) (no (unknown) (unknown) [facility] [facility] (units (unknown) date) [address] unknown) [place] [address] (unknown) (no (unknown) (unknown) JERKING, (units (unkno wn) date) unknown) (unknown) (no (unknown) (unknown) Lab Results (units (un known) date) unknown) (unknown) (no (unknown) (unknown) Last Admin: (units (un known) date) 12/08/21 01:35 unknown) Dose: 1 tab (unknown) (no (unknown) (unknown) Last Admin: (units (un known) date) 12/08/21 02:34 unknown) Dose: 4 mg (unknown) (no (unknown) (unknown) Last Admin: (units (un known) date) 12/08/21 04:04 unknown) Dose: 0.5 mg (unknown) (no (unknown) (unknown) Last Admin: (units (un known) date) 12/08/21 05:53 unknown) Dose: 4 mg (unknown) (no (unknown) (unknown) Last Admin: (units (un known) date) 12/08/21 05:53 unknown) Dose: 40 mg (unknown) (no (unknown) (unknown) Last Admin: (units (un known) date) 12/08/21 06:11 unknown) Dose: 260 mg (unknown) (no (unknown) (unknown) Last Admin: (units (un known) date) 12/08/21 06:42 unknown) Dose: 20 mg (unknown) (no (unknown) (unknown) Last Admin: (units (un known) date) 12/08/21 06:47 unknown) Dose: Not Given (unknown) (no (unknown) (unknown) Last Admin: (units (un known) date) 12/08/21 07:16 unknown) Dose: 10 mg (unknown) (no (unknown) (unknown) Last Admin: (units (un known) date) 12/08/21 07:17 unknown) Dose: 2.5 mg (unknown) (no (unknown) (unknown) Last Admin: (units (un known) date) 12/08/21 08:12 unknown) Dose: 0.5 mg (unknown) (no (unknown) (unknown) Last Admin: (units (un known) date) 12/08/21 10:03 unknown) Dose: 2 mg (unknown) (no (unknown) (unknown) Last Admin: (units (un known) date) 12/08/21 10:42 unknown) Dose: 1 tab (unknown) (no (unknown) (unknown) Last Admin: (units (un known) date) 12/08/21 13:01 unknown) Dose: 5 mg (unknown) (no (unknown) (unknown) Last Admin: (units (un known) date) 12/08/21 21:24 unknown) Dose: 10 ml (unknown) (no (unknown) (unknown) Last Admin: (units (un known) date) 12/09/21 10:01 unknown) Dose: 5 mg (unknown) (no (unknown) (unknown) Last Admin: (units (un known) date) 12/09/21 13:46 unknown) Dose: 2.5 mg (unknown) (no (unknown) (unknown) Last Admin: (units (un known) date) 12/09/21 16:00 unknown) Dose: 2 mg (unknown) (no (unknown) (unknown) Last Admin: (units (un known) date) 12/09/21 16:24 unknown) Dose: 4 mg (unknown) (no (unknown) (unknown) Last Admin: (units (un known) date) 12/09/21 18:11 unknown) Dose: 65 mg (unknown) (no (unknown) (unknown) Last Admin: (units (un known) date) 12/09/21 19:56 unknown) Dose: 65 mg (unknown) (no (unknown) (unknown) Last Admin: (units (un known) date) 12/09/21 21:27 unknown) Dose: 300 mg (unknown) (no (unknown) (unknown) Last Admin: (units (un known) date) 12/09/21 21:47 unknown) Dose: 975 mg (unknown) (no (unknown) (unknown) Last Admin: (units (un known) date) 12/10/21 03:58 unknown) Dose: 10 mg (unknown) (no (unknown) (unknown) Last Admin: (units (un known) date) 12/10/21 04:12 unknown) Dose: 2 mg (unknown) (no (unknown) (unknown) Last Admin: (units (un known) date) 12/10/21 06:26 unknown) Dose: 500 mg (unknown) (no (unknown) (unknown) Last Admin: (units (un known) date) 12/10/21 09:44 unknown) Dose: 1 mg (unknown) (no (unknown) (unknown) Last Admin: (units (un known) date) 12/10/21 09:44 unknown) Dose: 1 tab (unknown) (no (unknown) (unknown) Last Admin: (units (un known) date) 12/10/21 09:44 unknown) Dose: 10 mg (unknown) (no (unknown) (unknown) Last Admin: (units (un known) date) 12/10/21 09:44 unknown) Dose: 100 mg (unknown) (no (unknown) (unknown) Last Admin: (units (un known) date) 12/10/21 09:44 unknown) Dose: 25 mg (unknown) (no (unknown) (unknown) Last Admin: (units (un known) date) 12/10/21 09:45 unknown) Dose: 40 mg (unknown) (no (unknown) (unknown) Last Admin: (units (un known) date) 12/10/21 09:45 unknown) Dose: Not Given (unknown) (no (unknown) (unknown) Last Admin: (units (un known) date) 12/10/21 09:50 unknown) Dose: Not Given (unknown) (no (unknown) (unknown) Last Infusion: (units (unknown) date) 12/08/21 04:00 unknown) Dose: 0 mls/hr (unknown) (no (unknown) (unknown) Launch?Image (units (u nknown) date) unknown) (unknown) (no (unknown) (unknown) MINUTES (units (unkno wn) date) unknown) (unknown) (no (unknown) (unknown) NAUSEA W/I (units (unk nown) date) unknown) (unknown) (no (unknown) (unknown) PRN Reason: (units (un known) date) Alcohol Withdrawal unknown) (unknown) (no (unknown) (unknown) PRN Reason: Flush (units (unknown) date) unknown) (unknown) (no (unknown) (unknown) PRN Reason: Muscle (units (unknown) date) Spasm unknown) (unknown) (no (unknown) (unknown) PRN Reason: Nausea (units (unknown) date) And Vomiting unknown) (unknown) (no (unknown) (unknown) PRN Reason: Opiate (units (unknown) date) Reversal unknown) (unknown) (no (unknown) (unknown) PRN Reason: Pain, (units (unknown) date) Mild (1-3) unknown) (unknown) (no (unknown) (unknown) PRN Reason: Pain, (units (unknown) date) Moderate (4-6) unknown) (unknown) (no (unknown) (unknown) PRN Reason: Pain, (units (unknown) date) Severe (7-10) unknown) (unknown) (no (unknown) (unknown) PRN Reason: (units (un known) date) Shortness Of Breath unknown) (unknown) (no (unknown) (unknown) PRN Reason: (units (un known) date) insomnia unknown) (unknown) (no (unknown) (unknown) Point of Care (units ( unknown) date) Testing unknown) (unknown) (no (unknown) (unknown) Previous Rx's (units ( unknown) date) unknown) (unknown) (no (unknown) (unknown) Signed (units (unkno wn) date) unknown) (unknown) (no (unknown) (unknown) Stop: 12/08/21 (units (unknown) date) 01:26 unknown) (unknown) (no (unknown) (unknown) Stop: 12/08/21 (units (unknown) date) 02:32 unknown) (unknown) (no (unknown) (unknown) Stop: 12/08/21 (units (unknown) date) 04:01 unknown) (unknown) (no (unknown) (unknown) Stop: 12/08/21 (units (unknown) date) 05:47 unknown) (unknown) (no (unknown) (unknown) Stop: 12/08/21 (units (unknown) date) 05:50 unknown) (unknown) (no (unknown) (unknown) Stop: 12/08/21 (units (unknown) date) 06:04 unknown) (unknown) (no (unknown) (unknown) Stop: 12/08/21 (units (unknown) date) 06:31 unknown) (unknown) (no (unknown) (unknown) Stop: 12/08/21 (units (unknown) date) 07:12 unknown) (unknown) (no (unknown) (unknown) Stop: 12/08/21 (units (unknown) date) 07:16 unknown) (unknown) (no (unknown) (unknown) Stop: 12/08/21 (units (unknown) date) 08:05 unknown) (unknown) (no (unknown) (unknown) Stop: 12/08/21 (units (unknown) date) 09:54 unknown) (unknown) (no (unknown) (unknown) Stop: 12/08/21 (units (unknown) date) 10:39 unknown) (unknown) (no (unknown) (unknown) Stop: 12/08/21 (units (unknown) date) 11:41 unknown) (unknown) (no (unknown) (unknown) Stop: 12/09/21 (units (unknown) date) 17:46 unknown) (unknown) (no (unknown) (unknown) Stop: 12/09/21 (units (unknown) date) 19:08 unknown) (unknown) (no (unknown) (unknown) Stop: 12/11/21 (units (unknown) date) 09:01 unknown) (unknown) (no (unknown) (unknown) Vital Signs - 8 hr (units (unknown) date) unknown) (unknown) (no (unknown) (unknown) W/EXTENDED (units (unk nown) date) unknown) (unknown) (no (unknown) (unknown) (no value) (units (unk nown) date) unknown) (unknown) (no (unknown) (unknown) 12/07/21 12/07/21 (units (unknown) date) 12/07/21 unknown) Range/Units (unknown) (no (unknown) (unknown) 12/07/21 12/08/21 (units (unknown) date) Range/Units unknown) (unknown) (no (unknown) (unknown) 23:05 23:05 23:05 (units (unknown) date) unknown) (unknown) (no (unknown) (unknown) 23:05 23:44 23:57 (units (unknown) date) unknown) (unknown) (no (unknown) (unknown) 23:57 01:33 (units (un known) date) unknown) (unknown) (no (unknown) (unknown) (7-10) 7 days #60 (units (unknown) date) tabs unknown) (unknown) (no (unknown) (unknown) 12/08/21 (units (unkno wn) date) unknown) (unknown) (no (unknown) (unknown) Intractable nausea (units (unknown) date) and vomiting unknown) (unknown) (no (unknown) (unknown) Medication (units (unk nown) date) Instructions unknown) Recorded (unknown) (no (unknown) (unknown) Medication (units (unk nown) date) Instructions unknown) Recorded Confirmed (unknown) (no (unknown) (unknown) been contacted and (units (unknown) date) she will be able to unknown) come pick him up in the morning. (unknown) (no (unknown) (unknown) daytime (units (unkno wn) date) hospitalist to unknown) accept patient. (unknown) (no (unknown) (unknown) facet (units (unkno wn) date) unknown) (unknown) (no (unknown) (unknown) grams (units (unkno wn) date) unknown) (unknown) (no (unknown) (unknown) junction (units (unkno wn) date) unknown) (unknown) (no (unknown) (unknown) of (units (unkno wn) date) unknown) (unknown) (no (unknown) (unknown) [place], or aylin. (units (unknown) date) unknown) (unknown) (no (unknown) (unknown) tabs (units (unkno wn) date) unknown) (unknown) (no (unknown) (unknown) <Ezra Jasmine (units (unknown) date) - Last Filed: unknown) 01/15/22 01:21> (unknown) (no (unknown) (unknown) <Jung Dejesus DO (units (unknown) date) - Last Filed: unknown) 12/11/21 07:40> (unknown) (no (unknown) (unknown) (Athenol) (units (unkn own) date) unknown) (unknown) (no (unknown) (unknown) (More??) (units (unkno wn) date) unknown) (unknown) (no (unknown) (unknown) (Tessalon Perles) (units (unknown) date) unknown) (unknown) (no (unknown) (unknown) (Xopenex HFA) #15 (units (unknown) date) grams unknown) (unknown) (no (unknown) (unknown) - (units (unkno wn) date) unknown) (unknown) (no (unknown) (unknown) [phone] (units (unkn own) date) unknown) (unknown) (no (unknown) (unknown) 08/11/20 (units (unkno wn) date) unknown) (unknown) (no (unknown) (unknown) 08/16/20 (units (unkno wn) date) unknown) (unknown) (no (unknown) (unknown) 08/28/20 (units (unkno wn) date) unknown) (unknown) (no (unknown) (unknown) 09/15/21 (units (unkno wn) date) unknown) (unknown) (no (unknown) (unknown) 10/07/21 (units (unkno wn) date) unknown) (unknown) (no (unknown) (unknown) 10/08/21 (units (unkno wn) date) unknown) (unknown) (no (unknown) (unknown) 10/31/20 (units (unkno wn) date) unknown) (unknown) (no (unknown) (unknown) 11/04/20 (units (unkno wn) date) unknown) (unknown) (no (unknown) (unknown) 11/07/20 (units (unkno wn) date) unknown) (unknown) (no (unknown) (unknown) 11/19/21 (units (unkno wn) date) unknown) (unknown) (no (unknown) (unknown) 11/22/20 (units (unkno wn) date) unknown) (unknown) (no (unknown) (unknown) 11/28/21 (units (unkno wn) date) unknown) (unknown) (no (unknown) (unknown) 12/07/21 (units (unkno wn) date) unknown) (unknown) (no (unknown) (unknown) 12/28/20 (units (unkno wn) date) unknown) (unknown) (no (unknown) (unknown) 05:35 12/08/21 (units (unknown) date) unknown) (unknown) (no (unknown) (unknown) 05:37 12/08/21 (units (unknown) date) unknown) (unknown) (no (unknown) (unknown) 06:32 (units (unkno wn) date) unknown) (unknown) (no (unknown) (unknown) 06:33 12/08/21 (units (unknown) date) unknown) (unknown) (no (unknown) (unknown) 03/05/21 (units (unkno wn) date) unknown) (unknown) (no (unknown) (unknown) 07:00 12/08/21 (units (unknown) date) unknown) (unknown) (no (unknown) (unknown) 07:18 (units (unkno wn) date) unknown) (unknown) (no (unknown) (unknown) 04/16/21 (units (unkno wn) date) unknown) (unknown) (no (unknown) (unknown) 1. No acute (units (un known) date) intracranial unknown) abnormality. (unknown) (no (unknown) (unknown) 1.? No acute (units (u nknown) date) fracture or unknown) subluxation. (unknown) (no (unknown) (unknown) 12 point review of (units (unknown) date) systems is negative unknown) except for those stated above (unknown) (no (unknown) (unknown) 07/18/20 (units (unkno wn) date) unknown) (unknown) (no (unknown) (unknown) 2. Bony remodeling (units (unknown) date) in the left unknown) maxillary sinus redemonstrated consistent with (unknown) (no (unknown) (unknown) 2. Postsurgical (units (unknown) date) changes unknown) redemonstrated throughout the cervical spine with fusion (unknown) (no (unknown) (unknown) 3. Mild cerebral (units (unknown) date) volume loss.? unknown) (unknown) (no (unknown) (unknown) 76-year-old male (units (unknown) date) former smoker with unknown) heavy alcohol abuse today and history of (unknown) (no (unknown) (unknown) 7:00 a.m. s/o from (units (unknown) date) dr dejesus, patient unknown) will need admission for intractable (unknown) (no (unknown) (unknown) ? (units (unkno wn) date) unknown) (unknown) (no (unknown) (unknown) ? (units (unkno wn) date) unknown) (unknown) (no (unknown) (unknown) ?Minimal (units (unkno wn) date) anterolisthesis unknown) also demonstrated at T1-T2.? Findings are similar to (unknown) (no (unknown) (unknown) ACDF at (units (unkno wn) date) unknown) (unknown) (no (unknown) (unknown) ALT (<50) (units ( unknown) date) IU/L unknown) (unknown) (no (unknown) (unknown) ALT (<50) IU/L (units (unknown) date) unknown) (unknown) (no (unknown) (unknown) ALT 31 (<50) (units (unknown) date) IU/L unknown) (unknown) (no (unknown) (unknown) ANTIBIOTICS)] (units ( unknown) date) unknown) (unknown) (no (unknown) (unknown) AST (17-59) (units (unknown) date) IU/L unknown) (unknown) (no (unknown) (unknown) AST (17-59) (units (unknown) date) IU/L unknown) (unknown) (no (unknown) (unknown) AST 32 (17-59) (units (unknown) date) IU/L unknown) (unknown) (no (unknown) (unknown) Accession Number: (units (unknown) date) [id number] ?? unknown) (unknown) (no (unknown) (unknown) Accession Number: (units (unknown) date) [id number] ?? unknown) (unknown) (no (unknown) (unknown) Acct:[id number] (units (unknown) date) unknown) (unknown) (no (unknown) (unknown) Acetaminophen (units ( unknown) date) (10-30) ug/mL unknown) (unknown) (no (unknown) (unknown) Acetaminophen (units ( unknown) date) (10-30) ug/mL unknown) (unknown) (no (unknown) (unknown) Acetaminophen < (units (unknown) date) 10 (10-30) ug/mL unknown) (unknown) (no (unknown) (unknown) Acetaminophen (units ( unknown) date) (Acetaminophen 325 unknown) Mg Tablet) 975 mg PO Q8HR PRN (unknown) (no (unknown) (unknown) Acetaminophen/Code (units (unknown) date) ine Phosphate unknown) (Codeine/Acetaminop hen 30/300 Tablet) 1 tab PO (unknown) (no (unknown) (unknown) Achalasia (units (unkn own) date) unknown) (unknown) (no (unknown) (unknown) Admit Date/Time: (units (unknown) date) 12/08/21 08:04 unknown) (unknown) (no (unknown) (unknown) Admit Provider: (units (unknown) date) Aditya Tapia unknown) (unknown) (no (unknown) (unknown) Age/Sex: 76 / M (units (unknown) date) unknown) (unknown) (no (unknown) (unknown) Age/Sex: 76 / M (units (unknown) date) unknown) (unknown) (no (unknown) (unknown) Albumin (units (unkno wn) date) (3.5-5.0) g/dL unknown) (unknown) (no (unknown) (unknown) Albumin (units (unkno wn) date) (3.5-5.0) g/dL unknown) (unknown) (no (unknown) (unknown) Albumin 4.1 (units ( unknown) date) (3.5-5.0) g/dL unknown) (unknown) (no (unknown) (unknown) Albumin/Globulin (units (unknown) date) Ratio (1.0-2.8) unknown) (unknown) (no (unknown) (unknown) Albumin/Globulin (units (unknown) date) Ratio (1.0-2.8) unknown) (unknown) (no (unknown) (unknown) Albumin/Globulin (units (unknown) date) Ratio 1.4 unknown) (1.0-2.8) (unknown) (no (unknown) (unknown) Albuterol (units (unkn own) date) (Albuterol 2.5 Mg/3 unknown) Ml Neb (Adult)) 2.5 mg INH NOW ONE (unknown) (no (unknown) (unknown) Albuterol (units (unkn own) date) (Albuterol 2.5 Mg/3 unknown) Ml Neb (Adult)) 2.5 mg INH [id number] PRN (unknown) (no (unknown) (unknown) Alkaline (units (unkno wn) date) Phosphatase unknown) (38-126) U/L (unknown) (no (unknown) (unknown) Alkaline (units (unkno wn) date) Phosphatase unknown) (38-126) U/L (unknown) (no (unknown) (unknown) Alkaline (units (unkno wn) date) Phosphatase 64 unknown) (38-126) U/L (unknown) (no (unknown) (unknown) Allergy/Adv: (units (u nknown) date) celecoxib, latex, unknown) Sulfa (Sulfonamide Antibiotics), varenicline, (unknown) (no (unknown) (unknown) Allergy/AdvReac (units (unknown) date) Type Severity unknown) Reaction Status Date / Time (unknown) (no (unknown) (unknown) Anginal pain (units (u nknown) date) unknown) (unknown) (no (unknown) (unknown) Ankle X-Ray (units (un known) date) (Signed) unknown) (unknown) (no (unknown) (unknown) Antibiotics) (units (u nknown) date) unknown) (unknown) (no (unknown) (unknown) Approved by: (units (u nknown) date) Maxim Valadez, unknown) M.D. on 12/07/2021 at 21:44 ? (unknown) (no (unknown) (unknown) Approved by: (units (u nknown) date) Maxim Valadez, unknown) M.D. on 12/07/2021 at 21:48 ? (unknown) (no (unknown) (unknown) Asthma (units (unkno wn) date) unknown) (unknown) (no (unknown) (unknown) Atrial (units (unkno wn) date) fibrillation unknown) (unknown) (no (unknown) (unknown) BACK: Nontender (units (unknown) date) without deformity unknown) or crepitance. No flank tenderness. (unknown) (no (unknown) (unknown) BUN (9-20) (units (unknown) date) mg/dL unknown) (unknown) (no (unknown) (unknown) BUN (9-20) (units ( unknown) date) mg/dL unknown) (unknown) (no (unknown) (unknown) BUN 21 H (units (unk nown) date) (9-20) mg/dL unknown) (unknown) (no (unknown) (unknown) BUN/Creatinine (units (unknown) date) Ratio (6-22) unknown) (unknown) (no (unknown) (unknown) BUN/Creatinine (units (unknown) date) Ratio (6-22) unknown) (unknown) (no (unknown) (unknown) BUN/Creatinine (units (unknown) date) Ratio 23.9 H unknown) (6-22) (unknown) (no (unknown) (unknown) Baso # (Auto) (units ( unknown) date) (0-100) /uL unknown) (unknown) (no (unknown) (unknown) Baso # (Auto) (units ( unknown) date) (0-100) /uL unknown) (unknown) (no (unknown) (unknown) Baso # (Auto) 100 (units (unknown) date) (0-100) /uL unknown) (unknown) (no (unknown) (unknown) Baso % (Auto) (units ( unknown) date) (0-2) % unknown) (unknown) (no (unknown) (unknown) Baso % (Auto) (units ( unknown) date) (0-2) % unknown) (unknown) (no (unknown) (unknown) Baso % (Auto) 0.8 (units (unknown) date) (0-2) % unknown) (unknown) (no (unknown) (unknown) Blood Pressure (units (unknown) date) 159/98 H 05/02/ unknown) 20:23 (unknown) (no (unknown) (unknown) Blood Pressure (units (unknown) date) 194/102 H 228/109 H unknown) (unknown) (no (unknown) (unknown) Blood Pressure (units (unknown) date) 207/103 H 207/103 H unknown) (unknown) (no (unknown) (unknown) Bones:? No (units (unk nown) date) fractures or unknown) subluxation.? There is anterolisthesis at C2-C3 (unknown) (no (unknown) (unknown) Brain MRI (Signed) (units (unknown) date) unknown) (unknown) (no (unknown) (unknown) Brain:? No (units (unkn own) date) intracranial unknown) hemorrhage, mass, or mass effect.? The adams-white matter (unknown) (no (unknown) (unknown) C4-C5 and C7-T1.? (units (unknown) date) There is also unknown) fusion at C5-C6 and C6-C7.? There is mild to (unknown) (no (unknown) (unknown) CARDIOVASCULAR: (units (unknown) date) Denies chest pain, unknown) palpitations, orthopnea, edema, (unknown) (no (unknown) (unknown) CARDIOVASCULAR: (units (unknown) date) Regular rate and unknown) rhythm without murmurs, gallops, or rubs. (unknown) (no (unknown) (unknown) COMPARISON:? (units (u nknown) date) [facility], unknown) CT, CT CERVICAL SPINE WO CON, 04/16/2021, 12:21. (unknown) (no (unknown) (unknown) COMPARISON:? (units (u nknown) date) [facility], unknown) CT, CT HEAD/BRAIN WO CALIN, 04/16/2021, 12:21. (unknown) (no (unknown) (unknown) COPD (chronic (units ( unknown) date) obstructive unknown) pulmonary disease) (unknown) (no (unknown) (unknown) CSF spaces:? Basal (units (unknown) date) cisterns are unknown) patent.? The ventricles are symmetric in size (unknown) (no (unknown) (unknown) CT - cervical (units ( unknown) date) spine: unknown) (unknown) (no (unknown) (unknown) CT scan - head: (units (unknown) date) unknown) (unknown) (no (unknown) (unknown) Calcium (units (unkno wn) date) (8.4-10.2) mg/dL unknown) (unknown) (no (unknown) (unknown) Calcium (units (unkno wn) date) (8.4-10.2) mg/dL unknown) (unknown) (no (unknown) (unknown) Calcium 8.4 (units ( unknown) date) (8.4-10.2) mg/dL unknown) (unknown) (no (unknown) (unknown) Call,Francisco J (units (unk nown) date) unknown) (unknown) (no (unknown) (unknown) Carbon Dioxide (units (unknown) date) (22-32) mmol/L unknown) (unknown) (no (unknown) (unknown) Carbon Dioxide (units (unknown) date) (22-32) mmol/L unknown) (unknown) (no (unknown) (unknown) Carbon Dioxide (units (unknown) date) 27 (22-32) unknown) mmol/L (unknown) (no (unknown) (unknown) Cervical Spine CT (units (unknown) date) (Signed) unknown) (unknown) (no (unknown) (unknown) Cervical spinal (units (unknown) date) stenosis unknown) (unknown) (no (unknown) (unknown) Chest CTA (Signed) (units (unknown) date) unknown) (unknown) (no (unknown) (unknown) Chest X-Ray (units (un known) date) (Signed) unknown) (unknown) (no (unknown) (unknown) Chest/Abdomen/Pelv (units (unknown) date) is CTA (Signed) unknown) (unknown) (no (unknown) (unknown) Chief Complaint: (units (unknown) date) Trauma unknown) (unknown) (no (unknown) (unknown) Chlordiazepoxide (units (unknown) date) HCl unknown) (Chlordiazepoxide 25 Mg Capsule) 25 mg PO TID BLOSSOM (unknown) (no (unknown) (unknown) Chloride (units (unkno wn) date) (98-107) mmol/L unknown) (unknown) (no (unknown) (unknown) Chloride (units (unkno wn) date) (98-107) mmol/L unknown) (unknown) (no (unknown) (unknown) Chloride 104 (units (unknown) date) (98-107) mmol/L unknown) (unknown) (no (unknown) (unknown) 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 (10/22/16) (unknown) (no (unknown) (unknown) Zeina Saavedra (units (u nknown) date) unknown) (unknown) (no (unknown) (unknown) Clinical (units (unkno wn) date) Impression: unknown) (unknown) (no (unknown) (unknown) Consultation #1: (units (unknown) date) unknown) (unknown) (no (unknown) (unknown) Consultations (units ( unknown) date) unknown) (unknown) (no (unknown) (unknown) Coronary artery (units (unknown) date) disease unknown) (unknown) (no (unknown) (unknown) Course (units (unkno wn) date) unknown) (unknown) (no (unknown) (unknown) Course Narrative: (units (unknown) date) unknown) (unknown) (no (unknown) (unknown) Creatinine (units (unk nown) date) (0.66-1.25) mg/dL unknown) (unknown) (no (unknown) (unknown) Creatinine (units (unk nown) date) (0.66-1.25) mg/dL unknown) (unknown) (no (unknown) (unknown) Creatinine 0.88 (units (unknown) date) (0.66-1.25) mg/dL unknown) (unknown) (no (unknown) (unknown) : 1945 (units (unknown) date) Acct:[id number] unknown) (unknown) (no (unknown) (unknown) : 1945 (units (unknown) date) unknown) (unknown) (no (unknown) (unknown) Date of Service: (units (unknown) date) 12/07/21 unknown) (unknown) (no (unknown) (unknown) Departure (units (unkn own) date) unknown) (unknown) (no (unknown) (unknown) Inder Farley (units (u nknown) date) unknown) (unknown) (no (unknown) (unknown) Dictated by: (units (u nknown) date) Maxim Valadez, unknown) Clifford on 12/07/2021 at 21:42 ? ? (unknown) (no (unknown) (unknown) Dictated by: (units (u nknown) date) Maxim Valadez, unknown) Clifford on 12/07/2021 at 21:44 ? ? (unknown) (no (unknown) (unknown) Differential (units (u nknown) date) Diagnosis unknown) (unknown) (no (unknown) (unknown) Differential (units (u nknown) date) diagnosis: Likely unknown) other (Fall/injury/alcoho l withdrawal) (unknown) (no (unknown) (unknown) Discharge Plan (units (unknown) date) unknown) (unknown) (no (unknown) (unknown) Discontinued (units (u nknown) date) Medications unknown) (unknown) (no (unknown) (unknown) ENT: Nose without (units (unknown) date) bleeding, purulent unknown) drainage. No nasal septal hematoma Throat (unknown) (no (unknown) (unknown) ER Physician: (units ( unknown) date) Ezra Jasmine MD unknown) (unknown) (no (unknown) (unknown) EXTREMITIES: No (units (unknown) date) edema or joint unknown) tenderness. (unknown) (no (unknown) (unknown) EYES: Pupils equal (units (unknown) date) round and reactive. unknown) No hyphema Extraocular motions intact. (unknown) (no (unknown) (unknown) Echocardiogram (units (unknown) date) Ultrasound (Signed) unknown) (unknown) (no (unknown) (unknown) Enoxaparin Sodium (units (unknown) date) (Enoxaparin 40 unknown) Mg/0.4 Ml Syringe) 40 mg SUBCUT DAILY BLOSSOM (unknown) (no (unknown) (unknown) Eos # (Auto) (units (u nknown) date) (0-450) /uL unknown) (unknown) (no (unknown) (unknown) Eos # (Auto) (units (u nknown) date) (0-450) /uL unknown) (unknown) (no (unknown) (unknown) Eos # (Auto) 100 (units (unknown) date) (0-450) /uL unknown) (unknown) (no (unknown) (unknown) Eos % (Auto) (units (u nknown) date) (2-4) % unknown) (unknown) (no (unknown) (unknown) Eos % (Auto) (units (u nknown) date) (2-4) % unknown) (unknown) (no (unknown) (unknown) Eos % (Auto) 2.0 (units (unknown) date) (2-4) % unknown) (unknown) (no (unknown) (unknown) Estimated GFR (units ( unknown) date) (>60) mL/min unknown) (unknown) (no (unknown) (unknown) Estimated GFR (units ( unknown) date) (>60) mL/min unknown) (unknown) (no (unknown) (unknown) Estimated GFR > (units (unknown) date) 60 (>60) mL/min unknown) (unknown) (no (unknown) (unknown) Ethyl Alcohol ( (units (unknown) date) - 10) mg/dL unknown) (unknown) (no (unknown) (unknown) Ethyl Alcohol ( (units (unknown) date) - 10) mg/dL unknown) (unknown) (no (unknown) (unknown) Ethyl Alcohol (units ( unknown) date) 111 H ( - 10) unknown) mg/dL (unknown) (no (unknown) (unknown) Exam (units (unkno wn) date) unknown) (unknown) (no (unknown) (unknown) Exam Narrative: (units (unknown) date) unknown) (unknown) (no (unknown) (unknown) FINDINGS:? (units (unk nown) date) unknown) (unknown) (no (unknown) (unknown) Family History (units (unknown) date) (Updated 12/08/21 @ unknown) 13:50 by Aditya Tapia DO) (unknown) (no (unknown) (unknown) Father (units (unkno wn) date) Hypertension unknown) (unknown) (no (unknown) (unknown) Folic Acid (Folic (units (unknown) date) Acid 1 Mg Tablet) unknown) 1 mg PO DAILY BLOSSOM (unknown) (no (unknown) (unknown) Foot X-Ray (units (unk nown) date) (Signed) unknown) (unknown) (no (unknown) (unknown) Furosemide (units (unk nown) date) (Furosemide 40 Mg unknown) Tablet) 40 mg PO DAILY BLOSSOM (unknown) (no (unknown) (unknown) GASTROINTESTINAL: (units (unknown) date) Abdomen soft, unknown) non-tender, nondistended. (unknown) (no (unknown) (unknown) GASTROINTESTINAL: (units (unknown) date) Denies nausea, unknown) vomiting, abdominal pain, diarrhea, (unknown) (no (unknown) (unknown) GENERAL: Denies (units (unknown) date) chills, fatigue, unknown) malaise, fever, sweats. (unknown) (no (unknown) (unknown) GENERAL: [76 year (units (unknown) date) old patient appears unknown) stated age. Well-developed patient, in (unknown) (no (unknown) (unknown) : Denies (units (unk nown) date) dysuria, frequency, unknown) incontinence, hematuria, urinary retention. (unknown) (no (unknown) (unknown) General (units (unkno wn) date) unknown) (unknown) (no (unknown) (unknown) GenericComposite[P (units (unknown) date) lt Count unknown) (150-400) X10^3/uL ] (unknown) (no (unknown) (unknown) GenericComposite[P (units (unknown) date) lt Count unknown) (150-400) X10^3/uL ] (unknown) (no (unknown) (unknown) GenericComposite[P (units (unknown) date) lt Count 241 unknown) (150-400) X10^3/uL ] (unknown) (no (unknown) (unknown) GenericComposite[R (units (unknown) date) BC (4.5-5.9) unknown) X10^6/uL ] (unknown) (no (unknown) (unknown) GenericComposite[R (units (unknown) date) BC (4.5-5.9) unknown) X10^6/uL ] (unknown) (no (unknown) (unknown) GenericComposite[R (units (unknown) date) BC 4.93 unknown) (4.5-5.9) X10^6/uL ] (unknown) (no (unknown) (unknown) GenericComposite[W (units (unknown) date) BC (4.5-11.0) unknown) X10^3/uL ] (unknown) (no (unknown) (unknown) GenericComposite[W (units (unknown) date) BC (4.5-11.0) unknown) X10^3/uL ] (unknown) (no (unknown) (unknown) GenericComposite[W (units (unknown) date) BC 7.4 unknown) (4.5-11.0) X10^3/uL ] (unknown) (no (unknown) (unknown) Globulin (units (unkno wn) date) (1.7-4.1) g/dL unknown) (unknown) (no (unknown) (unknown) Globulin (units (unkno wn) date) (1.7-4.1) g/dL unknown) (unknown) (no (unknown) (unknown) Globulin 2.9 (units (unknown) date) (1.7-4.1) g/dL unknown) (unknown) (no (unknown) (unknown) Glucose (units (unkno wn) date) (80-110) mg/dL unknown) (unknown) (no (unknown) (unknown) Glucose (units (unkno wn) date) (80-110) mg/dL unknown) (unknown) (no (unknown) (unknown) Glucose 124 H (units (unknown) date) (80-110) mg/dL unknown) (unknown) (no (unknown) (unknown) Glucose POC 118 (units (unknown) date) unknown) (unknown) (no (unknown) (unknown) H/O arthroscopic (units (unknown) date) knee surgery unknown) (11/14/17) (unknown) (no (unknown) (unknown) HEAD: Superficial (units (unknown) date) abrasion on the unknown) bridge of his nose, no other obvious (unknown) (no (unknown) (unknown) HEENT: See HPI (units (unknown) date) unknown) (unknown) (no (unknown) (unknown) HPI - Fall (units (unk nown) date) unknown) (unknown) (no (unknown) (unknown) HPI Narrative: (units (unknown) date) unknown) (unknown) (no (unknown) (unknown) Hand X-Ray (units (unk nown) date) (Signed) unknown) (unknown) (no (unknown) (unknown) Jean Oneill (units (unknown) date) unknown) (unknown) (no (unknown) (unknown) Hct (41-53) % (units (unknown) date) unknown) (unknown) (no (unknown) (unknown) Hct (41-53) % (units (unknown) date) unknown) (unknown) (no (unknown) (unknown) Hct 46.0 (units (unkn own) date) (41-53) % unknown) (unknown) (no (unknown) (unknown) Head CT (Signed) (units (unknown) date) unknown) (unknown) (no (unknown) (unknown) Head/Neck CTA (units ( unknown) date) (Signed) unknown) (unknown) (no (unknown) (unknown) Hgb (units (unkno wn) date) (13.5-17.5) g/dL unknown) (unknown) (no (unknown) (unknown) Hgb (13.5-17.5) (units (unknown) date) g/dL unknown) (unknown) (no (unknown) (unknown) Hgb 15.6 (units (unkn own) date) (13.5-17.5) g/dL unknown) (unknown) (no (unknown) (unknown) History of Present (units (unknown) date) Illness unknown) (unknown) (no (unknown) (unknown) History of aortic (units (unknown) date) dissection unknown) () (unknown) (no (unknown) (unknown) History of (units (unk nown) date) arthroplasty of unknown) right knee (unknown) (no (unknown) (unknown) 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 (unknown) (no (unknown) (unknown) History of cardiac (units (unknown) date) cath () unknown) (unknown) (no (unknown) (unknown) History of (units (unk nown) date) esophageal surgery unknown) (unknown) (no (unknown) (unknown) History of (units (unk nown) date) incision and unknown) drainage () (unknown) (no (unknown) (unknown) History of prior (units (unknown) date) ablation treatment unknown) () (unknown) (no (unknown) (unknown) History of surgery (units (unknown) date) unknown) (unknown) (no (unknown) (unknown) Vidal,Ronni (units (unk nown) date) unknown) (unknown) (no (unknown) (unknown) Hx of (units (unkno wn) date) cholecystectomy unknown) (unknown) (no (unknown) (unknown) Hx of hernia (units (u nknown) date) repair unknown) (unknown) (no (unknown) (unknown) Hx of sinus (units (un known) date) surgery unknown) (unknown) (no (unknown) (unknown) Hydralazine HCl (units (unknown) date) (Hydralazine 20 unknown) Mg/Ml Vial) 10 mg IV NOW ONE (unknown) (no (unknown) (unknown) Hydromorphone HCl (units (unknown) date) (Hydromorphone 0.5 unknown) Mg Inj) 0.5 mg IV NOW ONE (unknown) (no (unknown) (unknown) Hypertension (units (u nknown) date) unknown) (unknown) (no (unknown) (unknown) IMPRESSION:? (units (u nknown) date) unknown) (unknown) (no (unknown) (unknown) INDICATIONS:? (units ( unknown) date) trauma unknown) (unknown) (no (unknown) (unknown) INHIBITOR] (units (unk nown) date) unknown) (unknown) (no (unknown) (unknown) Image quality:? (units (unknown) date) Excellent.? unknown) (unknown) (no (unknown) (unknown) Image quality:? (units (unknown) date) There is motion unknown) artifact limiting evaluation.? (unknown) (no (unknown) (unknown) Imaging Data (units (u nknown) date) unknown) (unknown) (no (unknown) (unknown) Inhibitor (units (unkn own) date) MUSCLES unknown) (unknown) (no (unknown) (unknown) Initial Vital (units ( unknown) date) Signs unknown) (unknown) (no (unknown) (unknown) Initial Vital (units ( unknown) date) Signs: unknown) (unknown) (no (unknown) (unknown) Ischemic (units (unkno wn) date) cardiomyopathy unknown) (unknown) (no (unknown) (unknown) Theodore,Exmore (units (unknown) date) unknown) (unknown) (no (unknown) (unknown) Shadi,Bharath (units ( unknown) date) unknown) (unknown) (no (unknown) (unknown) Knee X-Ray (units (unk nown) date) (Signed) unknown) (unknown) (no (unknown) (unknown) Lab Data (units (unkno wn) date) unknown) (unknown) (no (unknown) (unknown) Labs: (units (unkno wn) date) unknown) (unknown) (no (unknown) (unknown) Lactate (units (unkno wn) date) (0.7-2.1) mmol/L unknown) (unknown) (no (unknown) (unknown) Lactate 2.3 H (units (unknown) date) (0.7-2.1) mmol/L unknown) (unknown) (no (unknown) (unknown) Lactate 1.5 (units ( unknown) date) (0.7-2.1) mmol/L unknown) (unknown) (no (unknown) (unknown) Lisinopril (units (unk nown) date) (Lisinopril 10 Mg unknown) Tablet) 10 mg PO DAILY BLOSSOM (unknown) (no (unknown) (unknown) Lisinopril (units (unk nown) date) (Lisinopril 20 Mg unknown) Tablet) 20 mg PO NOW ONE (unknown) (no (unknown) (unknown) Satish Jarrett (units (unkno wn) date) unknown) (unknown) (no (unknown) (unknown) Loc: ED (units (unkno wn) date) unknown) (unknown) (no (unknown) (unknown) Lorazepam (units (unkn own) date) (Lorazepam 1 Mg unknown) Tablet) 0 mg PO CIWAPRN PRN; Protocol (unknown) (no (unknown) (unknown) Lorazepam (units (unkn own) date) (Lorazepam 2 Mg/Ml unknown) Inj) 0 mg IV CIWAPRN PRN; Protocol (unknown) (no (unknown) (unknown) Lorazepam (units (unkn own) date) (Lorazepam 2 Mg/Ml unknown) Inj) 1 mg IV NOW ONE (unknown) (no (unknown) (unknown) Lorazepam (units (unkn own) date) (Lorazepam 2 Mg/Ml unknown) Inj) 2 mg IV NOW ONE (unknown) (no (unknown) (unknown) Lumbar Spine MRI (units (unknown) date) (Signed) unknown) (unknown) (no (unknown) (unknown) Lymph # (Auto) (units (unknown) date) (9003-1615) /uL unknown) (unknown) (no (unknown) (unknown) Lymph # (Auto) (units (unknown) date) (3498-8022) /uL unknown) (unknown) (no (unknown) (unknown) Lymph # (Auto) (units (unknown) date) 1700 (7957-5163) unknown) /uL (unknown) (no (unknown) (unknown) Lymph % (Auto) (units (unknown) date) (25-40) % unknown) (unknown) (no (unknown) (unknown) Lymph % (Auto) (units (unknown) date) (25-40) % unknown) (unknown) (no (unknown) (unknown) Lymph % (Auto) (units (unknown) date) 23.0 L (25-40) unknown) % (unknown) (no (unknown) (unknown) MCH (26-34) (units (unknown) date) PG unknown) (unknown) (no (unknown) (unknown) MCH (26-34) PG (units (unknown) date) unknown) (unknown) (no (unknown) (unknown) MCH 31.7 (units (unkn own) date) (26-34) PG unknown) (unknown) (no (unknown) (unknown) MCHC (30-36) (units (unknown) date) % unknown) (unknown) (no (unknown) (unknown) MCHC (30-36) % (units (unknown) date) unknown) (unknown) (no (unknown) (unknown) MCHC 34.0 (units (unk nown) date) (30-36) % unknown) (unknown) (no (unknown) (unknown) MCV (80-100) (units (unknown) date) fL unknown) (unknown) (no (unknown) (unknown) MCV (80-100) (units (unknown) date) fL unknown) (unknown) (no (unknown) (unknown) MCV 93.3 (units (unkn own) date) (80-100) fL unknown) (unknown) (no (unknown) (unknown) MDM - Fall (units (unk nown) date) unknown) (unknown) (no (unknown) (unknown) MR#: [id number] (units (unknown) date) unknown) (unknown) (no (unknown) (unknown) MUSCULOSKELETAL: (units (unknown) date) See HPI unknown) (unknown) (no (unknown) (unknown) Medical History (units (unknown) date) (Reviewed 12/08/21 unknown) @ 13:50 by Aditya Tapia DO) (unknown) (no (unknown) (unknown) Cheryl Husain (units (unknown) date) unknown) (unknown) (no (unknown) (unknown) Methocarbamol (units ( unknown) date) (Methocarbamol 500 unknown) Mg Tablet) 500 mg PO TID PRN (unknown) (no (unknown) (unknown) Metoprolol (units (unk nown) date) Succinate unknown) (Metoprolol Er 50 Mg Tablet) 100 mg PO DAILY BLOSSOM (unknown) (no (unknown) (unknown) Metoprolol (units (unk nown) date) Tartrate unknown) (Metoprolol Ir 25 Mg Tablet) 100 mg PO NOW ONE (unknown) (no (unknown) (unknown) Mode of arrival: (units (unknown) date) EMS unknown) (unknown) (no (unknown) (unknown) [place] # (Auto) (units ( unknown) date) (0-900) /uL unknown) (unknown) (no (unknown) (unknown) [place] # (Auto) (units ( unknown) date) (0-900) /uL unknown) (unknown) (no (unknown) (unknown) [place] # (Auto) 700 (units (unknown) date) (0-900) /uL unknown) (unknown) (no (unknown) (unknown) [place] % (Auto) (units ( unknown) date) (3-14) % unknown) (unknown) (no (unknown) (unknown) [place] % (Auto) (units ( unknown) date) (3-14) % unknown) (unknown) (no (unknown) (unknown) [place] % (Auto) 9.5 (units (unknown) date) (3-14) % unknown) (unknown) (no (unknown) (unknown) Mother (units (unknown) date) Stroke unknown) (unknown) (no (unknown) (unknown) Multivitamins (units ( unknown) date) (Multivitamin 1 unknown) Tablet) 1 tab PO DAILY BLOSSOM (unknown) (no (unknown) (unknown) NECK: [place]a (units ( unknown) date) midline. Non tender unknown) (unknown) (no (unknown) (unknown) NEURO: Cranial (units (unknown) date) nerves 2-12 grossly unknown) intact (unknown) (no (unknown) (unknown) NEUROLOGIC: Denies (units (unknown) date) weakness, headache, unknown) numbness, change in speech, confusion, (unknown) (no (unknown) (unknown) NOW ONE (units (unkno wn) date) unknown) (unknown) (no (unknown) (unknown) Naloxone HCl (units (u nknown) date) (Naloxone 0.4 Mg/Ml unknown) Vial) 0.2 mg IV Q2MIN PRN (unknown) (no (unknown) (unknown) Narcotic (units (unkno wn) date) dependence unknown) (unknown) (no (unknown) (unknown) Narrative (units (unkn own) date) unknown) (unknown) (no (unknown) (unknown) Narrative: (units (unk nown) date) unknown) (unknown) (no (unknown) (unknown) Neck pain, chronic (units (unknown) date) unknown) (unknown) (no (unknown) (unknown) Neut # (Auto) (units ( unknown) date) (6081-1149) /uL unknown) (unknown) (no (unknown) (unknown) Neut # (Auto) (units ( unknown) date) (0481-6935) /uL unknown) (unknown) (no (unknown) (unknown) Neut # (Auto) (units ( unknown) date) 4800 (2066-8039) unknown) /uL (unknown) (no (unknown) (unknown) Neut % (Auto) (units ( unknown) date) (50-75) % unknown) (unknown) (no (unknown) (unknown) Neut % (Auto) (units ( unknown) date) (50-75) % unknown) (unknown) (no (unknown) (unknown) Neut % (Auto) (units ( unknown) date) 64.7 (50-75) % unknown) (unknown) (no (unknown) (unknown) No scleral (units (unk nown) date) icterus. No unknown) injection or drainage. (unknown) (no (unknown) (unknown) Noncontrast 3 mm (units (unknown) date) thick sections unknown) acquired from the skull base to the T4 level.? (unknown) (no (unknown) (unknown) Noncontrast 4.5 mm (units (unknown) date) thick angled axial unknown) sections acquired from the foramen magnum (unknown) (no (unknown) (unknown) Ondansetron HCl (units (unknown) date) (Ondansetron 4 Mg/2 unknown) Ml Inj) 4 mg IV NOW ONE (unknown) (no (unknown) (unknown) Ondansetron HCl (units (unknown) date) (Ondansetron 4 Mg/2 unknown) Ml Inj) 4 mg IV Q4HR PRN (unknown) (no (unknown) (unknown) Ordered: (units (unkno wn) date) unknown) (unknown) (no (unknown) (unknown) Ordering Provider: (units (unknown) date) Jung Dejesus D.O. unknown) (unknown) (no (unknown) (unknown) Orders (units (unkno wn) date) unknown) (unknown) (no (unknown) (unknown) Oxycodone HCl (units ( unknown) date) (Oxycodone Ir 10 Mg unknown) Tablet) 10 mg PO Q6HR PRN (unknown) (no (unknown) (unknown) Oxycodone HCl (units ( unknown) date) (Oxycodone Ir 5 Mg unknown) Tablet) 5 mg PO Q4HR PRN (unknown) (no (unknown) (unknown) Oxycodone/Acetamino (units (unknown) date) phen unknown) (Oxycodone/Acetamin ophen 5/325 Tablet) 1 tab PO NOW ONE (unknown) (no (unknown) (unknown) Oxygen Delivery (units (unknown) date) Method 12/07/21 unknown) 20:23 (unknown) (no (unknown) (unknown) PROCEDURE:? CT (units (unknown) date) CERVICAL SPINE WO unknown) CON (unknown) (no (unknown) (unknown) PROCEDURE:? CT (units (unknown) date) HEAD/BRAIN WO CON unknown) (unknown) (no (unknown) (unknown) PSYCHIATRIC: No (units (unknown) date) concerning unknown) psychosocial issues. (unknown) (no (unknown) (unknown) Pantoprazole (units (u nknown) date) Sodium unknown) (Pantoprazole 40 Mg Vial) 40 mg IV NOW ONE (unknown) (no (unknown) (unknown) Patient (units (unkno wn) date) Disposition: unknown) Admitted As Inpatient (unknown) (no (unknown) (unknown) Patient History (units (unknown) date) unknown) (unknown) (no (unknown) (unknown) Patient getting (units (unknown) date) shaky, sweaty, unknown) tachycardic, HTN, sweaty, and developing N/V/D. (unknown) (no (unknown) (unknown) Patient observed (units (unknown) date) for some time unknown) before labs added. He has continued to have a (unknown) (no (unknown) (unknown) Patient: (units (unkno wn) date) Dominic Viveros unknown) MR#: M (unknown) (no (unknown) (unknown) Patient: (units (unkno wn) date) Dominic Viveros unknown) (unknown) (no (unknown) (unknown) Maxim Valadez (units (un known) date) unknown) (unknown) (no (unknown) (unknown) Phenobarbital (units ( unknown) date) (Phenobarbital 65 unknown) Mg/Ml Vial) 260 mg IV NOW ONE (unknown) (no (unknown) (unknown) Phenobarbital (units ( unknown) date) (Phenobarbital 65 unknown) Mg/Ml Vial) 65 mg IV NOW ONE (unknown) (no (unknown) (unknown) Potassium (units (unkn own) date) (3.4-5.1) mmol/L unknown) (unknown) (no (unknown) (unknown) Potassium (units (unkn own) date) (3.4-5.1) mmol/L unknown) (unknown) (no (unknown) (unknown) Potassium 4.5 (units (unknown) date) (3.4-5.1) mmol/L unknown) (unknown) (no (unknown) (unknown) Procedure: CT (units ( unknown) date) cervical spine wo unknown) con (unknown) (no (unknown) (unknown) Procedure: CT (units ( unknown) date) head/brain wo con unknown) (unknown) (no (unknown) (unknown) Prolactin (units (unkn own) date) (3.7-17.9) ng/mL unknown) (unknown) (no (unknown) (unknown) Prolactin (units (unkn own) date) (3.7-17.9) ng/mL unknown) (unknown) (no (unknown) (unknown) Prolactin 18.9 H (units (unknown) date) (3.7-17.9) ng/mL unknown) (unknown) (no (unknown) (unknown) Pulse Oximetry 92 (units (unknown) date) 12/07/21 20:23 unknown) (unknown) (no (unknown) (unknown) Pulse Oximetry 96 (units (unknown) date) 93 unknown) (unknown) (no (unknown) (unknown) Pulse Oximetry 92 (units (unknown) date) 96 unknown) (unknown) (no (unknown) (unknown) Pulse Rate 67 66 (units (unknown) date) unknown) (unknown) (no (unknown) (unknown) Pulse Rate 88 (units (unknown) date) 12/07/21 20:23 unknown) (unknown) (no (unknown) (unknown) Pulse Rate 64 68 (units (unknown) date) 69 unknown) (unknown) (no (unknown) (unknown) RDW (units (unkno wn) date) (11.6-14.8) % unknown) (unknown) (no (unknown) (unknown) RDW (11.6-14.8) (units (unknown) date) % unknown) (unknown) (no (unknown) (unknown) RDW 13.7 (units (unkn own) date) (11.6-14.8) % unknown) (unknown) (no (unknown) (unknown) RESPIRATORY: Clear (units (unknown) date) to auscultation. unknown) Breath sounds equal bilaterally. No wheezes, (unknown) (no (unknown) (unknown) RESPIRATORY: (units (u nknown) date) Denies dyspnea, unknown) cough, wheezing, hemoptysis, sputum. (unknown) (no (unknown) (unknown) Dominic Viveros (units (unknown) date) D??76??M?? unknown) 5 (unknown) (no (unknown) (unknown) Reevaluation #1: (units (unknown) date) unknown) (unknown) (no (unknown) (unknown) Reevaluation #2: (units (unknown) date) unknown) (unknown) (no (unknown) (unknown) Reevaluation(s) (units (unknown) date) unknown) (unknown) (no (unknown) (unknown) Related Data (units (u nknown) date) unknown) (unknown) (no (unknown) (unknown) Respiratory Rate (units (unknown) date) 17 19 unknown) (unknown) (no (unknown) (unknown) Respiratory Rate (units (unknown) date) 22 12/07/21 20:23 unknown) (unknown) (no (unknown) (unknown) Respiratory Rate (units (unknown) date) 18 18 20 unknown) (unknown) (no (unknown) (unknown) Result diagrams: (units (unknown) date) unknown) (unknown) (no (unknown) (unknown) Review of Systems (units (unknown) date) unknown) (unknown) (no (unknown) (unknown) Emeka Robertson (units (unknown) date) unknown) (unknown) (no (unknown) (unknown) Sudarshan Calderon (units (u nknown) date) unknown) (unknown) (no (unknown) (unknown) S/P CABG x 3 (units (u nknown) date) () unknown) (unknown) (no (unknown) (unknown) S/P cervical (units (u nknown) date) spinal fusion unknown) (unknown) (no (unknown) (unknown) S/P lumbar fusion (units (unknown) date) unknown) (unknown) (no (unknown) (unknown) SARS-CoV-2 (PCR) (units (unknown) date) (Negative) unknown) (unknown) (no (unknown) (unknown) SARS-CoV-2 (PCR) (units (unknown) date) (Negative) unknown) (unknown) (no (unknown) (unknown) SARS-CoV-2 (PCR) (units (unknown) date) Negative unknown) (Negative) (unknown) (no (unknown) (unknown) SKIN: Denies rash, (units (unknown) date) skin lesions, or unknown) other (unknown) (no (unknown) (unknown) SKIN: No rash or (units (unknown) date) erythema of visible unknown) areas (unknown) (no (unknown) (unknown) Sagittal (units (unkno wn) date) unknown) (unknown) (no (unknown) (unknown) Salicylates (units (un known) date) (<20) mg/dL unknown) (unknown) (no (unknown) (unknown) Salicylates (units (un known) date) (<20) mg/dL unknown) (unknown) (no (unknown) (unknown) Salicylates < (units (unknown) date) 1.0 (<20) mg/dL unknown) (unknown) (no (unknown) (unknown) Signed By: (units (unk nown) date) unknown) (unknown) (no (unknown) (unknown) Sinuses:? (units (unkn own) date) Visualized sinuses unknown) redemonstrate wall thickening and mucoperiosteal (unknown) (no (unknown) (unknown) Skull and face:? (units (unknown) date) Calvarium and unknown) visualized facial bones appear intact, without (unknown) (no (unknown) (unknown) Smoking Status: (units (unknown) date) Former smoker unknown) (unknown) (no (unknown) (unknown) Smoking Status: (units (unknown) date) Former smoker unknown) (unknown) (no (unknown) (unknown) Social History (units (unknown) date) (Reviewed 12/08/21 unknown) @ 01:57 by Jung Dejesus DO) (unknown) (no (unknown) (unknown) Sodium (units (unkno wn) date) (137-145) mmol/L unknown) (unknown) (no (unknown) (unknown) Sodium (units (unkno wn) date) (137-145) mmol/L unknown) (unknown) (no (unknown) (unknown) Sodium 140 (units (u nknown) date) (137-145) mmol/L unknown) (unknown) (no (unknown) (unknown) Sodium Chloride (units (unknown) date) (Normal Saline unknown) 0.9%) 1,000 mls @ 150 mls/hr IV CONT BLOSSOM (unknown) (no (unknown) (unknown) Sodium Chloride (units (unknown) date) (Sodium Chloride unknown) 0.9% Flush) 10 ml IV BID BLOSSOM (unknown) (no (unknown) (unknown) Sodium Chloride (units (unknown) date) (Sodium Chloride unknown) 0.9% Flush) 10 ml IV PRN PRN (unknown) (no (unknown) (unknown) Soft tissues:? (units (unknown) date) Prevertebral soft unknown) tissues are normal in thickness.? No (unknown) (no (unknown) (unknown) Source: patient, (units (unknown) date) family and EMS unknown) (unknown) (no (unknown) (unknown) Spoke with (units (unk nown) date) hospitalist, unknown) Willie, he will accept patient for admit (unknown) (no (unknown) (unknown) Stated Complaint: (units (unknown) date) Back Pain unknown) (unknown) (no (unknown) (unknown) [id number] (units (unknown) date) Reductase AdvReac unknown) Mild WEAK Verified 11/28/21 15:33 (unknown) (no (unknown) (unknown) Stool Occult Blood (units (unknown) date) Positive unknown) (unknown) (no (unknown) (unknown) Strong concern (units (unknown) date) that he is unknown) developing withdrawals though he denies frequent (unknown) (no (unknown) (unknown) Substance Use (units ( unknown) date) Type: does not use unknown) (unknown) (no (unknown) (unknown) Sulfa (Sulfonamide (units (unknown) date) Allergy Mild RASH unknown) Verified 11/28/21 15:33 (unknown) (no (unknown) (unknown) Surgical History (units (unknown) date) (Reviewed 12/08/21 unknown) @ 13:50 by Aditya Tapia DO) (unknown) (no (unknown) (unknown) Andre Spear (units ( unknown) date) unknown) (unknown) (no (unknown) (unknown) TECHNIQUE:? (units (un known) date) unknown) (unknown) (no (unknown) (unknown) TSH (units (unkno wn) date) (0.47-4.68) uIU/mL unknown) (unknown) (no (unknown) (unknown) TSH (0.47-4.68) (units (unknown) date) uIU/mL unknown) (unknown) (no (unknown) (unknown) TSH 2.07 (units (unkn own) date) (0.47-4.68) uIU/mL unknown) (unknown) (no (unknown) (unknown) Telemetry Strips (units (unknown) date) unknown) (unknown) (no (unknown) (unknown) Temperature (units (un known) date) unknown) (unknown) (no (unknown) (unknown) Temperature 97.4 (units (unknown) date) F L 12/07/21 20:23 unknown) (unknown) (no (unknown) (unknown) Temperature 97.8 (units (unknown) date) F unknown) (unknown) (no (unknown) (unknown) There is a small (units (unknown) date) right choroidal unknown) fissure cyst redemonstrated.? (unknown) (no (unknown) (unknown) There is mild (units ( unknown) date) cerebral volume unknown) loss, with resultant ventricular and sulcal (unknown) (no (unknown) (unknown) Thiamine HCl (units (u nknown) date) (Thiamine 100 Mg unknown) Tablet) 100 mg PO DAILY BLOSSOM (unknown) (no (unknown) (unknown) Tibia/Fibula X-Ray (units (unknown) date) (Signed) unknown) (unknown) (no (unknown) (unknown) Time Seen by (units (u nknown) date) Provider: 12/07/21 unknown) 20:22 (unknown) (no (unknown) (unknown) Time: 06:09 (units (un known) date) unknown) (unknown) (no (unknown) (unknown) Time: 08:06 (units (un known) date) unknown) (unknown) (no (unknown) (unknown) Total Bilirubin (units (unknown) date) (0.2-1.3) mg/dL unknown) (unknown) (no (unknown) (unknown) Total Bilirubin (units (unknown) date) (0.2-1.3) mg/dL unknown) (unknown) (no (unknown) (unknown) Total Bilirubin (units (unknown) date) 0.9 (0.2-1.3) unknown) mg/dL (unknown) (no (unknown) (unknown) Total Protein (units ( unknown) date) (6.3-8.2) g/dL unknown) (unknown) (no (unknown) (unknown) Total Protein (units ( unknown) date) (6.3-8.2) g/dL unknown) (unknown) (no (unknown) (unknown) Total Protein (units ( unknown) date) 7.0 (6.3-8.2) unknown) g/dL (unknown) (no (unknown) (unknown) Trazodone HCl (units ( unknown) date) (Trazodone 100 Mg unknown) Tablet) 100 mg PO BEDTIME PRN (unknown) (no (unknown) (unknown) Trazodone HCl (units ( unknown) date) (Trazodone 100 Mg unknown) Tablet) 300 mg PO BEDTIME BLOSSOM (unknown) (no (unknown) (unknown) U Benzodiazepines (units (unknown) date) Scrn (Negative) unknown) (unknown) (no (unknown) (unknown) U Benzodiazepines (units (unknown) date) Scrn Positive H unknown) (Negative) (unknown) (no (unknown) (unknown) U Marijuana (THC) (units (unknown) date) Screen unknown) (Negative) (unknown) (no (unknown) (unknown) U Marijuana (THC) (units (unknown) date) Screen Negative unknown) (Negative) (unknown) (no (unknown) (unknown) U Methamphetamines (units (unknown) date) Scrn (Negative) unknown) (unknown) (no (unknown) (unknown) U Methamphetamines (units (unknown) date) Scrn Negative unknown) (Negative) (unknown) (no (unknown) (unknown) U Opiates 300ng/mL (units (unknown) date) cut (Negative) unknown) (unknown) (no (unknown) (unknown) U Opiates 300ng/mL (units (unknown) date) cut Positive H unknown) (Negative) (unknown) (no (unknown) (unknown) U Tricyclic (units (un known) date) Antidepress unknown) (Negative) (unknown) (no (unknown) (unknown) U Tricyclic (units (un known) date) Antidepress unknown) Negative (Negative) (unknown) (no (unknown) (unknown) Ur Amphetamines (units (unknown) date) Screen unknown) (Negative) (unknown) (no (unknown) (unknown) Ur Amphetamines (units (unknown) date) Screen Negative unknown) (Negative) (unknown) (no (unknown) (unknown) Ur Barbiturates (units (unknown) date) Screen unknown) (Negative) (unknown) (no (unknown) (unknown) Ur Barbiturates (units (unknown) date) Screen Negative unknown) (Negative) (unknown) (no (unknown) (unknown) Ur Culture (units (unk nown) date) Indicated? unknown) (unknown) (no (unknown) (unknown) Ur Culture (units (unk nown) date) Indicated? unknown) (unknown) (no (unknown) (unknown) Ur Culture (units (unk nown) date) Indicated? Cult unknown) not indicated (unknown) (no (unknown) (unknown) Ur Leukocyte (units (u nknown) date) Esterase unknown) (NEGATIVE) (unknown) (no (unknown) (unknown) Ur Leukocyte (units (u nknown) date) Esterase unknown) (NEGATIVE) (unknown) (no (unknown) (unknown) Ur Leukocyte (units (u nknown) date) Esterase unknown) Negative (NEGATIVE) (unknown) (no (unknown) (unknown) Ur MDMA Scrn (units (u nknown) date) (Ecstasy) unknown) (Negative) (unknown) (no (unknown) (unknown) Ur MDMA Scrn (units (u nknown) date) (Ecstasy) Negative unknown) (Negative) (unknown) (no (unknown) (unknown) Ur Oxycodone (units (u nknown) date) Screen unknown) (Negative) (unknown) (no (unknown) (unknown) Ur Oxycodone (units (u nknown) date) Screen Negative unknown) (Negative) (unknown) (no (unknown) (unknown) Ur Phencyclidine (units (unknown) date) Scrn (Negative) unknown) (unknown) (no (unknown) (unknown) Ur Phencyclidine (units (unknown) date) Scrn Negative unknown) (Negative) (unknown) (no (unknown) (unknown) Ur Specific (units (un known) date) Falcon unknown) (1.000-1.035) (unknown) (no (unknown) (unknown) Ur Specific (units (un known) date) Falcon unknown) (1.000-1.035) (unknown) (no (unknown) (unknown) Ur Specific (units (un known) date) Falcon 1.020 unknown) (1.000-1.035) (unknown) (no (unknown) (unknown) Ur Squamous Epith (units (unknown) date) Cells (0-5/HPF) unknown) (unknown) (no (unknown) (unknown) Ur Squamous Epith (units (unknown) date) Cells (0-5/HPF) unknown) (unknown) (no (unknown) (unknown) Ur Squamous Epith (units (unknown) date) Cells 0-1 /hpf unknown) (0-5/HPF) (unknown) (no (unknown) (unknown) Urine Appearance (units (unknown) date) unknown) (unknown) (no (unknown) (unknown) Urine Appearance (units (unknown) date) unknown) (unknown) (no (unknown) (unknown) Urine Appearance (units (unknown) date) Clear unknown) (unknown) (no (unknown) (unknown) Urine Bacteria (units (unknown) date) (None) unknown) (unknown) (no (unknown) (unknown) Urine Bacteria (units (unknown) date) (None) unknown) (unknown) (no (unknown) (unknown) Urine Bacteria (units (unknown) date) None seen (None) unknown) (unknown) (no (unknown) (unknown) Urine Bilirubin (units (unknown) date) (NEGATIVE) unknown) (unknown) (no (unknown) (unknown) Urine Bilirubin (units (unknown) date) (NEGATIVE) unknown) (unknown) (no (unknown) (unknown) Urine Bilirubin (units (unknown) date) Negative unknown) (NEGATIVE) (unknown) (no (unknown) (unknown) Urine Cocaine (units ( unknown) date) Screen unknown) (Negative) (unknown) (no (unknown) (unknown) Urine Cocaine (units ( unknown) date) Screen Negative unknown) (Negative) (unknown) (no (unknown) (unknown) Urine Color (units (un known) date) unknown) (unknown) (no (unknown) (unknown) Urine Color (units (un known) date) unknown) (unknown) (no (unknown) (unknown) Urine Color (units (un known) date) Yellow unknown) (unknown) (no (unknown) (unknown) Urine Glucose (UA) (units (unknown) date) (Negative) unknown) g/dL (unknown) (no (unknown) (unknown) Urine Glucose (UA) (units (unknown) date) (Negative) g/dL unknown) (unknown) (no (unknown) (unknown) Urine Glucose (UA) (units (unknown) date) Negative unknown) (Negative) g/dL (unknown) (no (unknown) (unknown) Urine Ketones (units ( unknown) date) (NEGATIVE) unknown) (unknown) (no (unknown) (unknown) Urine Ketones (units ( unknown) date) (NEGATIVE) unknown) (unknown) (no (unknown) (unknown) Urine Ketones (units ( unknown) date) Trace H (NEGATIVE) unknown) (unknown) (no (unknown) (unknown) Urine Methadone (units (unknown) date) Screen unknown) (Negative) (unknown) (no (unknown) (unknown) Urine Methadone (units (unknown) date) Screen Negative unknown) (Negative) (unknown) (no (unknown) (unknown) Urine Nitrate (units ( unknown) date) (Negative) unknown) (unknown) (no (unknown) (unknown) Urine Nitrate (units ( unknown) date) (Negative) unknown) (unknown) (no (unknown) (unknown) Urine Nitrate (units ( unknown) date) Negative unknown) (Negative) (unknown) (no (unknown) (unknown) Urine Occult Blood (units (unknown) date) (Negative) unknown) (unknown) (no (unknown) (unknown) Urine Occult Blood (units (unknown) date) (Negative) unknown) (unknown) (no (unknown) (unknown) Urine Occult Blood (units (unknown) date) Negative unknown) (Negative) (unknown) (no (unknown) (unknown) Urine Protein (units ( unknown) date) (Negative) unknown) (unknown) (no (unknown) (unknown) Urine Protein (units ( unknown) date) (Negative) unknown) (unknown) (no (unknown) (unknown) Urine Protein (units ( unknown) date) Negative unknown) (Negative) (unknown) (no (unknown) (unknown) Urine RBC (units (unkn own) date) (0-5/HPF) unknown) (unknown) (no (unknown) (unknown) Urine RBC (units (unkn own) date) (0-5/HPF) unknown) (unknown) (no (unknown) (unknown) Urine RBC None (units (unknown) date) seen (0-5/HPF) unknown) (unknown) (no (unknown) (unknown) Urine Urobilinogen (units (unknown) date) (0.2) E.U./dL unknown) (unknown) (no (unknown) (unknown) Urine Urobilinogen (units (unknown) date) (0.2) E.U./dL unknown) (unknown) (no (unknown) (unknown) Urine Urobilinogen (units (unknown) date) 0.2 (0.2) unknown) E.U./dL (unknown) (no (unknown) (unknown) Urine WBC (units (unkn own) date) (0-5/HPF) unknown) (unknown) (no (unknown) (unknown) Urine WBC (units (unkn own) date) (0-5/HPF) unknown) (unknown) (no (unknown) (unknown) Urine WBC None (units (unknown) date) seen (0-5/HPF) unknown) (unknown) (no (unknown) (unknown) Urine pH (units (unkno wn) date) (4.5-8.0) unknown) (unknown) (no (unknown) (unknown) Urine pH (units (unkno wn) date) (4.5-8.0) unknown) (unknown) (no (unknown) (unknown) Urine pH 5.0 (units (unknown) date) (4.5-8.0) unknown) (unknown) (no (unknown) (unknown) Vascular (units (unkno wn) date) Ultrasound (Signed) unknown) (unknown) (no (unknown) (unknown) Ventricular (units (un known) date) bigeminy unknown) (unknown) (no (unknown) (unknown) Vital Signs (units (un known) date) unknown) (unknown) (no (unknown) (unknown) Vital signs: (units (u nknown) date) unknown) (unknown) (no (unknown) (unknown) Charles,Lexx (units (u nknown) date) unknown) (unknown) (no (unknown) (unknown) [Embedded Image (units (unknown) date) Not Available] unknown) (unknown) (no (unknown) (unknown) [[id number] (units (unknown) date) REDUCTASE unknown) (unknown) (no (unknown) (unknown) [SULFA (units (unkno wn) date) (SULFONAMIDE unknown) (unknown) (no (unknown) (unknown) acetaminophen 325 (units (unknown) date) mg tablet 650 mg PO unknown) Q6H PRN pain #60 tabs 11/06/20 (unknown) (no (unknown) (unknown) agree for admit. (units (unknown) date) At this time unknown) nighttime hospitalist is aware and signing out to (unknown) (no (unknown) (unknown) albuterol sulfate (units (unknown) date) 1.25 mg/3 mL 2.5 mg unknown) (6 mL) inhalation QID #90 mL 11/28/21 (unknown) (no (unknown) (unknown) alcohol intake (units (unknown) date) frequency: unknown) holidays/special occasions only (unknown) (no (unknown) (unknown) alcohol intake: (units (unknown) date) current unknown) (unknown) (no (unknown) (unknown) and coronal (units (un known) date) reformats were then unknown) constructed.? For radiation dose reduction, the (unknown) (no (unknown) (unknown) and shape.? (units (un known) date) unknown) (unknown) (no (unknown) (unknown) appears (units (unkno wn) date) preserved.? There unknown) is intracranial internal carotid artery (unknown) (no (unknown) (unknown) approximately 0.2 (units (unknown) date) cm. unknown) (unknown) (no (unknown) (unknown) approximately 0.4 (units (unknown) date) cm and minimal unknown) anterolisthesis at C3-C4 measuring (unknown) (no (unknown) (unknown) arthropathy (units (un known) date) throughout the unknown) cervical spine.? Visualized superior ribs are (unknown) (no (unknown) (unknown) atherosclerosis.? (units (unknown) date) unknown) (unknown) (no (unknown) (unknown) benzonatate 100 mg (units (unknown) date) capsule 100 mg PO unknown) TID PRN cough #14 caps 03/05/21 (unknown) (no (unknown) (unknown) buprenorphine (units ( unknown) date) [BUPRENORPHINE] unknown) AdvReac Mild NAUSEA, Verified 11/28/21 15:33 (unknown) (no (unknown) (unknown) buprenorphine, (units (unknown) date) hyoscyamine, unknown) [id number] Reductase Inhibitor, diazepam (unknown) (no (unknown) (unknown) celecoxib (units (unkn own) date) [CELECOXIB] Allergy unknown) Mild SWELLING Verified 11/28/21 15:33 (unknown) (no (unknown) (unknown) cetirizine 10 mg (units (unknown) date) capsule (Zyrtec) 10 unknown) mg PO DAILY 05/22/19 10/08/21 (unknown) (no (unknown) (unknown) chronic back pain, (units (unknown) date) ataxia, AFib, COPD unknown) presents for evaluation of a witnessed (unknown) (no (unknown) (unknown) chronic sinusitis. (units (unknown) date) unknown) (unknown) (no (unknown) (unknown) clonidine HCl 0.1 (units (unknown) date) mg tablet 0.2 mg PO unknown) TID 12/08/21 12/08/21 (unknown) (no (unknown) (unknown) constipation, (units ( unknown) date) melena. unknown) (unknown) (no (unknown) (unknown) consumed a large (units (unknown) date) amount of alcohol unknown) tonight in addition to many other medications (unknown) (no (unknown) (unknown) contusion, (units (unk nown) date) laceration, unknown) hematoma or evidence of depressed skull fracture (unknown) (no (unknown) (unknown) degeneration also (units (unknown) date) demonstrated at unknown) C2-C3 and C3-C4.? There is multilevel moderate (unknown) (no (unknown) (unknown) degenerative disc (units (unknown) date) disease within the unknown) visualized upper thoracic spine.? Mild disc (unknown) (no (unknown) (unknown) diazepam [From (units (unknown) date) Valium] AdvReac unknown) Confusion Verified 11/28/21 15:33 (unknown) (no (unknown) (unknown) diclofenac sodium (units (unknown) date) 1 % topical gel 2 g unknown) topical QID back pain #100 11/19/21 (unknown) (no (unknown) (unknown) difficult time (units ( unknown) date) ambulating and is unknown) unsafe to discharge at this time. His has (unknown) (no (unknown) (unknown) drinking. (units (unkn own) date) Phenobarb ordered unknown) and moved to room with monitor (unknown) (no (unknown) (unknown) ferrous sulfate (units (unknown) date) 325 mg (65 mg 325 unknown) mg PO DAILY 10/19/19 10/08/21 (unknown) (no (unknown) (unknown) fluticasone (units (un known) date) propionate 50 1 unknown) spray intranasal DAILY PRN 11/02/17 10/08/21 (unknown) (no (unknown) (unknown) following (units (unkn own) date) unknown) (unknown) (no (unknown) (unknown) furosemide 40 mg (units (unknown) date) tablet (Lasix) 40 unknown) mg PO DAILY 10/08/21 10/08/21 (unknown) (no (unknown) (unknown) glipizide 2.5 mg (units (unknown) date) tablet, extended unknown) 2.5 mg PO DAILY 10/08/21 10/08/21 (unknown) (no (unknown) (unknown) ground level fall. (units (unknown) date) He stumbled and unknown) fell forward, striking his nose. There was (unknown) (no (unknown) (unknown) hematomas.? No (units (unknown) date) apical unknown) pneumothoraces.? (unknown) (no (unknown) (unknown) household members: (units (unknown) date) spouse unknown) (unknown) (no (unknown) (unknown) hyoscyamine (units (un known) date) [HYOSCYAMINE] unknown) AdvReac Mild LEG Verified 11/28/21 15:33 (unknown) (no (unknown) (unknown) intact.? (units (unkno wn) date) unknown) (unknown) (no (unknown) (unknown) iron) (units (unkno wn) date) tablet,delayed unknown) release (unknown) (no (unknown) (unknown) latex [LATEX] (units ( unknown) date) Allergy Mild RASH unknown) Verified 11/28/21 15:33 (unknown) (no (unknown) (unknown) lesions.? (units (unkn own) date) unknown) (unknown) (no (unknown) (unknown) levalbuterol HCl (units (unknown) date) 1.25 mg/3 mL 3 ml unknown) inhalation Q6H PRN Shortness 10/16/18 (unknown) (no (unknown) (unknown) levalbuterol (units (u nknown) date) tartrate 45 1 puff unknown) inhalation Q4-6H PRN 06/22/18 (unknown) (no (unknown) (unknown) lisinopril 10 mg (units (unknown) date) tablet 10 mg PO unknown) DAILY 12/08/21 12/08/21 (unknown) (no (unknown) (unknown) mastoid air cells (units (unknown) date) are clear. unknown) (unknown) (no (unknown) (unknown) mcg/actuation (units ( unknown) date) aerosol inhaler unknown) shortness of breath or wheezing (unknown) (no (unknown) (unknown) mcg/actuation (units ( unknown) date) nasal Allergy unknown) Symptoms ##0 (unknown) (no (unknown) (unknown) measuring (units (unkn own) date) unknown) (unknown) (no (unknown) (unknown) meclizine 25 mg (units (unknown) date) tablet 25 mg PO QID unknown) PRN vertigo #30 tabs 10/09/21 (unknown) (no (unknown) (unknown) methocarbamol 500 (units (unknown) date) mg tablet 500 mg PO unknown) Q8H PRN muscle spasm #14 11/19/21 (unknown) (no (unknown) (unknown) metoprolol (units (unk n) date) tartrate 100 mg unknown) tablet 100 mg PO DAILY 10/16/18 10/08/21 (unknown) (no (unknown) (unknown) mild distress. (units (unknown) date) GCS 15, smells of unknown) alcohol and slurring his words (unknown) (no (unknown) (unknown) moderate (units (unkno wn) date) unknown) (unknown) (no (unknown) (unknown) multiple levels as (units (unknown) date) described. unknown) (unknown) (no (unknown) (unknown) multivitamin (units (u nknown) date) (Multiple Vitamins) unknown) 1 tab PO DAILY ##0 12/20/16 10/08/21 (unknown) (no (unknown) (unknown) no loss of (units (unk n) date) consciousness and unknown) he has had no nausea or vomiting. He denies any (unknown) (no (unknown) (unknown) other injuries (units (unknown) date) such as neck, back unknown) or extremities. His states that he (unknown) (no (unknown) (unknown) oxycodone 5 mg (units (unknown) date) tablet 10 mg PO unknown) Q4-5H PRN Pain, Severe 12/10/21 (unknown) (no (unknown) (unknown) paravertebral (units ( unknown) date) unknown) (unknown) (no (unknown) (unknown) patient (units (o wn) date) unknown) (unknown) (no (unknown) (unknown) prominence.? (units (u nknown) date) unknown) (unknown) (no (unknown) (unknown) release 24 hr (units ( unknown) date) (Glucotrol XL) unknown) (unknown) (no (unknown) (unknown) seizures, (units (unkn own) date) incoordination. unknown) (unknown) (no (unknown) (unknown) sequelae of (units (un known) date) unknown) (unknown) (no (unknown) (unknown) sinusitis.? The (units (unknown) date) unknown) (unknown) (no (unknown) (unknown) size.? (units (unkno wn) date) unknown) (unknown) (no (unknown) (unknown) solution for (units (u nknown) date) nebulization unknown) (unknown) (no (unknown) (unknown) solution for (units (u nknown) date) nebulization Of unknown) Breath (unknown) (no (unknown) (unknown) spray,suspension (units (unknown) date) unknown) (unknown) (no (unknown) (unknown) study.? There are (units (unknown) date) postsurgical unknown) changes also redemonstrated status post prior (unknown) (no (unknown) (unknown) substance use (units ( unknown) date) type: does not use unknown) (unknown) (no (unknown) (unknown) suspicious (units (unk nown) date) unknown) (unknown) (no (unknown) (unknown) that he would (units ( unknown) date) routinely take. He unknown) is activated as a modified trauma. (unknown) (no (unknown) (unknown) the prior (units (unkn own) date) unknown) (unknown) (no (unknown) (unknown) thickening (units (unk nown) date) unknown) (unknown) (no (unknown) (unknown) to the (units (unkno wn) date) unknown) (unknown) (no (unknown) (unknown) trazodone 100 mg (units (unknown) date) tablet 400 tab PO unknown) BEDTIME 30 days #120 12/10/21 (unknown) (no (unknown) (unknown) varenicline (units (un known) date) [VARENICLINE] unknown) AdvReac Severe Paranoia Verified 11/28/21 15:33 (unknown) (no (unknown) (unknown) vertex, with (units (u nknown) date) coronal and unknown) sagittal reformats.? For radiation dose reduction, the (unknown) (no (unknown) (unknown) vomiting/hypertens (units (unknown) date) ion/dizziness. He unknown) has spoken with and patient and they (unknown) (no (unknown) (unknown) was used:? (units (unk nown) date) automated exposure unknown) control, adjustment of mA and/or kV according to (unknown) (no (unknown) (unknown) within the (units (unk nown) date) visualized left unknown) maxillary sinus suggesting sequelae of chronic (unknown) (no (unknown) (unknown) without erythema, (units (unknown) date) tonsillar unknown) hypertrophy or exudate. Airway patent. Result panel 77 (unknown) (no (unknown) (unknown) (no value) (units (unk nown) date) unknown) (unknown) (no (unknown) (unknown) [address] (units (unknown) date) unknown) (unknown) (no (unknown) (unknown) [place] (units ( unknown) date) [id number] unknown) (unknown) (no (unknown) (unknown) CT Scan Report (units (unknown) date) unknown) (unknown) (no (unknown) (unknown) [facility] (units (unknown) date) unknown) (unknown) (no (unknown) (unknown) Signed (units (unkno wn) date) unknown) (unknown) (no (unknown) (unknown) (no value) (units (unk nown) date) unknown) (unknown) (no (unknown) (unknown) 01/21/22 (units (unkno wn) date) unknown) (unknown) (no (unknown) (unknown) [place], CR, XR (units (unknown) date) LUMBAR SPINE WITH unknown) OBLIQUES PLUS FLEXION EXTENSION, 09/08/2021, (unknown) (no (unknown) (unknown) Approved by: (units (u nknown) date) Bharath Hsu, unknown) Clifford on 01/21/2022 at 15:23 (unknown) (no (unknown) (unknown) Bones: Mild (units (u nknown) date) dextroconvex unknown) scoliotic curvature is seen. There is minimal (unknown) (no (unknown) (unknown) COMPARISON: (units (un known) date) [facility], unknown) CT, CT LUMBAR SPINE WO CON, 12/08/2021, 3:30. (unknown) (no (unknown) (unknown) Dictated by: (units (u nknown) date) Bharath Hsu, dinorah) Clifford on 01/21/2022 at 15:16 (unknown) (no (unknown) (unknown) FINDINGS: (units (unkn own) date) unknown) (unknown) (no (unknown) (unknown) Hospital, MR, MR (units (unknown) date) LUMBAR SPINE WO unknown) CON, 09/15/2021, 13:04. [facility] (unknown) (no (unknown) (unknown) IMPRESSION: (units (un known) date) Multiple levels of unknown) prominent lumbar spine degenerative change are (unknown) (no (unknown) (unknown) INDICATIONS: (units (u nknown) date) SPINAL STENOSIS OF unknown) LUMBAR REGION (unknown) (no (unknown) (unknown) Image quality: (units (unknown) date) There is artifact unknown) associated with the metallic hardware. (unknown) (no (unknown) (unknown) Intact appearing (units (unknown) date) hardware seen L4 unknown) through S1. (unknown) (no (unknown) (unknown) L1-L2: Moderate (units (unknown) date) loss of disc unknown) height is seen. Vacuum disc phenomenon is seen at (unknown) (no (unknown) (unknown) L2-L3: Moderate (units (unknown) date) loss of disc unknown) height is seen. Vacuum disc phenomenon is seen at (unknown) (no (unknown) (unknown) L3-L4: Moderate (units (unknown) date) loss of disc unknown) height is seen. Vacuum disc phenomenon is seen at (unknown) (no (unknown) (unknown) L4-L5: There are (units (unknown) date) postoperative unknown) changes seen at this level. Moderate (unknown) (no (unknown) (unknown) L5-S1: (units (unkno wn) date) Postoperative unknown) changes can be seen at this level. Mild to moderate disc (unknown) (no (unknown) (unknown) Mild dextroconvex (units (unknown) date) scoliotic unknown) curvature is seen. (unknown) (no (unknown) (unknown) No acute (units (unkno wn) date) vertebral body unknown) compression fractures. No suspicious lytic or blastic (unknown) (no (unknown) (unknown) Noncontrast 3 mm (units (unknown) date) thick sections unknown) acquired from the T12 level to the sacrum. (unknown) (no (unknown) (unknown) Postoperative (units ( unknown) date) changes are seen, unknown) with bilateral pedicle screws at the L4, L5, (unknown) (no (unknown) (unknown) Soft tissues: No (units (unknown) date) retroperitoneal unknown) masses or hematomas. Visualized aorta is (unknown) (no (unknown) (unknown) T12-L1: Normal. (units (unknown) date) unknown) (unknown) (no (unknown) (unknown) TECHNIQUE: (units (unk nown) date) unknown) (unknown) (no (unknown) (unknown) There is moderate (units (unknown) date) to severe unknown) left-sided and moderate right-sided neural (unknown) (no (unknown) (unknown) are seen at L4-L5 (units (unknown) date) and L5-S1. No unknown) findings of hardware failure or hardware (unknown) (no (unknown) (unknown) bulge is seen. (units (unknown) date) There is moderate unknown) to severe right-sided and moderate left-sided (unknown) (no (unknown) (unknown) caliber. (units (unkno wn) date) unknown) (unknown) (no (unknown) (unknown) coronal reformats (units (unknown) date) were constructed. unknown) 0.8 mm axial thin sections are (unknown) (no (unknown) (unknown) foraminal (units (unkn own) date) narrowing. No unknown) central canal narrowing is seen. (unknown) (no (unknown) (unknown) foraminal (units (unkn own) date) narrowing. The unknown) central canal is widely patent. (unknown) (no (unknown) (unknown) hypertrophy is (units (unknown) date) seen. Moderate to unknown) severe bilateral neural foraminal narrowing (unknown) (no (unknown) (unknown) is seen. There is (units (unknown) date) a superimposed unknown) central disc protrusion. Mild to moderate (unknown) (no (unknown) (unknown) lesions. No pars (units (unknown) date) defects. unknown) (unknown) (no (unknown) (unknown) level. At least (units (unknown) date) moderate disc unknown) bulge is seen. Moderate facet joint hypertrophy (unknown) (no (unknown) (unknown) level. Endplate (units (unknown) date) irregularity and unknown) sclerosis can be seen. Moderate generalized (unknown) (no (unknown) (unknown) level. Moderate (units (unknown) date) generalized disc unknown) bulge is seen. There is a superimposed (unknown) (no (unknown) (unknown) levels. The (units (u nknown) date) screws appear well unknown) placed. Vertical fixation rods are seen. Disc (unknown) (no (unknown) (unknown) moderate central (units (unknown) date) canal narrowing is unknown) seen at this level. (unknown) (no (unknown) (unknown) narrowing. At (units (unknown) date) least moderate unknown) central canal narrowing is seen. (unknown) (no (unknown) (unknown) protrusion. (units (un known) date) Moderate facet unknown) hypertrophy can be seen. There is moderate to (unknown) (no (unknown) (unknown) radiation dose (units (unknown) date) reduction, the unknown) following was used: automated exposure control. (unknown) (no (unknown) (unknown) right-sided and (units (unknown) date) at least moderate unknown) left-sided neural foraminal narrowing. At (unknown) (no (unknown) (unknown) seen at L1-L2 and (units (unknown) date) minimal unknown) retrolisthesis seen at L3-L4. (unknown) (no (unknown) (unknown) seen. Moderate (units (unknown) date) to severe central unknown) canal narrowing is seen. (unknown) (no (unknown) (unknown) seen. There is (units (unknown) date) moderate to severe unknown) right-sided and at least moderate left-sided (unknown) (no (unknown) (unknown) seen. There has (units (unknown) date) been removal of unknown) portions of the posterior elements. (unknown) (no (unknown) (unknown) the metallic (units (u nknown) date) hardware is unknown) reduced by metal reconstruction algorithm. (unknown) (no (unknown) (unknown) 13:18. (units (unkno wn) date) unknown) (unknown) (no (unknown) (unknown) Accession Number: (units (unknown) date) [id number] unknown) (unknown) (no (unknown) (unknown) Age/Sex: 76 / M (units (unknown) date) Date of Service: unknown) (unknown) (no (unknown) (unknown) Artifact from (units ( unknown) date) unknown) (unknown) (no (unknown) (unknown) : 1945 (units (unknown) date) Acct:[id number] unknown) (unknown) (no (unknown) (unknown) [place] (units (unkno wn) date) unknown) (unknown) (no (unknown) (unknown) Loc: [place] (units (unkno wn) date) unknown) (unknown) (no (unknown) (unknown) [id number] (units (unk nown) date) unknown) (unknown) (no (unknown) (unknown) Ordering (units (unkno wn) date) Provider: Carlos Montemayor unknown) (unknown) (no (unknown) (unknown) Orthopedic (units (unk nown) date) unknown) (unknown) (no (unknown) (unknown) PROCEDURE: CT (units (unknown) date) LUMBAR SPINE WO unknown) CON (unknown) (no (unknown) (unknown) Patient: (units (unkno wn) date) Dominic Viveros unknown) MR#: (unknown) (no (unknown) (unknown) Procedure: CT (units ( unknown) date) lumbar spine wo unknown) con (unknown) (no (unknown) (unknown) Sagittal and (units (u nknown) date) unknown) (unknown) (no (unknown) (unknown) and S1 (units (unkno wn) date) unknown) (unknown) (no (unknown) (unknown) anterolisthesis (units (unknown) date) unknown) (unknown) (no (unknown) (unknown) bony (units (unkno wn) date) unknown) (unknown) (no (unknown) (unknown) bulge is (units (unkno wn) date) unknown) (unknown) (no (unknown) (unknown) can be (units (unkno wn) date) unknown) (unknown) (no (unknown) (unknown) central disc (units (u nknown) date) unknown) (unknown) (no (unknown) (unknown) disc bulge (units (unk nown) date) unknown) (unknown) (no (unknown) (unknown) facet (units (unkno wn) date) unknown) (unknown) (no (unknown) (unknown) foraminal (units (unkn own) date) unknown) (unknown) (no (unknown) (unknown) generalized disc (units (unknown) date) unknown) (unknown) (no (unknown) (unknown) is seen. (units (unkno wn) date) unknown) (unknown) (no (unknown) (unknown) least (units (unkno wn) date) unknown) (unknown) (no (unknown) (unknown) loosening are (units ( unknown) date) unknown) (unknown) (no (unknown) (unknown) neural (units (unkno wn) date) unknown) (unknown) (no (unknown) (unknown) normal in (units (unkn own) date) unknown) (unknown) (no (unknown) (unknown) reformatted. For (units (unknown) date) unknown) (unknown) (no (unknown) (unknown) seen. (units (unkno wn) date) unknown) (unknown) (no (unknown) (unknown) severe (units (unkno wn) date) unknown) (unknown) (no (unknown) (unknown) spacers (units (unkno wn) date) unknown) (unknown) (no (unknown) (unknown) this (units (unkno wn) date) unknown) Result panel 78 (unknown) (no date) (unknown) (unknown) Negative (units (unkn own) unknown) Result panel 79 (unknown) (no (unknown) (unknown) (no value) (units (unk nown) date) unknown) (unknown) (no (unknown) (unknown) Date of Service: (units (unknown) date) 02/03/22 unknown) (unknown) (no (unknown) (unknown) 02/03/22 0932 (units ( unknown) date) unknown) (unknown) (no (unknown) (unknown) [facility] (units (unknown) date) [address] unknown) [place] [address] (unknown) (no (unknown) (unknown) Pre-operative (units ( unknown) date) Note unknown) (unknown) (no (unknown) (unknown) (no value) (units (unk nown) date) unknown) (unknown) (no (unknown) (unknown) [id number] (units (unkn own) date) unknown) (unknown) (no (unknown) (unknown) Age/Sex: 76 / M (units (unknown) date) unknown) (unknown) (no (unknown) (unknown) COVID-19 (units (unkno wn) date) unknown) (unknown) (no (unknown) (unknown) COVID-19 status: (units (unknown) date) Negative unknown) (unknown) (no (unknown) (unknown) Changes to H+P: (units (unknown) date) No unknown) (unknown) (no (unknown) (unknown) Criteria for (units (u nknown) date) continued unknown) procedure: Expected advancement of disease process, (unknown) (no (unknown) (unknown) : 1945 (units (unknown) date) Acct:[id number] unknown) (unknown) (no (unknown) (unknown) Deterioration of (units (unknown) date) the patient's unknown) condition or overall health and Delay expected to (unknown) (no (unknown) (unknown) History + (units (unkn own) date) Physical unknown) reviewed/Exam performed by Physician: Yes (unknown) (no (unknown) (unknown) Interval Note (units ( unknown) date) unknown) (unknown) (no (unknown) (unknown) Patient: (units (unkno wn) date) Dominic Viveros unknown) MR#: M (unknown) (no (unknown) (unknown) Possibility delay (units (unknown) date) results in more unknown) complex future surgery or treatment, Increased (unknown) (no (unknown) (unknown) Pre-operative (units ( unknown) date) Note unknown) (unknown) (no (unknown) (unknown) Provider: (units (unkn own) date) Carlos Montemayor MD unknown) (unknown) (no (unknown) (unknown) Result date/Date (units (unknown) date) tested (Pos, unknown) Neg/Pending): 02/02/22 (unknown) (no (unknown) (unknown) Signed (units (unkno wn) date) By:<Electronicall unknown) y signed by Carlos Montemayor MD> (unknown) (no (unknown) (unknown) loss of (units (unkno wn) date) function, unknown) Continuing or worsening of significant or severe pain, (unknown) (no (unknown) (unknown) result in (units (unkn own) date) less-positive unknown) ultimate med/surg outcome Result panel 80 (unknown) (no (unknown) (unknown) (no value) (units (unk nown) date) unknown) (unknown) (no (unknown) (unknown) [address] [place] [address] (units (unknown) date) unknown) (unknown) (no (unknown) (unknown) [place], [place] (units ( unknown) date) [id number] unknown) (unknown) (no (unknown) (unknown) [facility] (units (unknown) date) unknown) (unknown) (no (unknown) (unknown) Signed (units (unkno wn) date) unknown) (unknown) (no (unknown) (unknown) XRay Report (units (un known) date) unknown) (unknown) (no (unknown) (unknown) (no value) (units (unk nown) date) unknown) (unknown) (no (unknown) (unknown) 02/03/22 (units (unkno wn) date) unknown) (unknown) (no (unknown) (unknown) Approved by: (units (u nknown) date) Zeina Saavedra, dinorah) Clifford on 02/03/2022 at 16:09 (unknown) (no (unknown) (unknown) Bones: 5 (units (unkn own) date) [id number] unknown) vertebrae are present. There is normal bony (unknown) (no (unknown) (unknown) COMPARISON: (units (un known) date) [facility], unknown) CT, CT LUMBAR SPINE WO CON, 01/21/2022, 14:03. (unknown) (no (unknown) (unknown) Dictated by: (units (u nknown) date) dinorah Mccullough) Clifford on 02/03/2022 at 16:08 (unknown) (no (unknown) (unknown) FINDINGS: (units (unkn own) date) unknown) (unknown) (no (unknown) (unknown) Hospital, CR, (units ( unknown) date) L-SPINE 2-3 unknown) VIEWS, 02/03/2015, 14:29. (unknown) (no (unknown) (unknown) IMPRESSION: (units (un known) date) Posterior fusion unknown) as above. (unknown) (no (unknown) (unknown) INDICATIONS: (units (u nknown) date) L2-S1 POSTERIOR unknown) SPINE FUSION (unknown) (no (unknown) (unknown) L2 through S1 is (units (unknown) date) present. unknown) Hardware is intact. There is relatively good (unknown) (no (unknown) (unknown) TECHNIQUE: 3 (units ( unknown) date) views of the unknown) lumbar spine were acquired. (unknown) (no (unknown) (unknown) alignment. (units (unk nown) date) Intervertebral unknown) spacers are also noted. (unknown) (no (unknown) (unknown) vertebral body (units (unknown) date) compression unknown) fractures. No suspicious bony lesions. Posterior (unknown) (no (unknown) (unknown) Accession (units (unkn own) date) Number: unknown) [id number] (unknown) (no (unknown) (unknown) Age/Sex: 76 / M (units (unknown) date) Date of unknown) Service: (unknown) (no (unknown) (unknown) : 1945 (units (unknown) date) Acct:[id number] unknown) (unknown) (no (unknown) (unknown) [place] (units (unkno wn) date) unknown) (unknown) (no (unknown) (unknown) Loc: ICU (units (unkno wn) date) 226-1 unknown) (unknown) (no (unknown) (unknown) [id number] (units (unk nown) date) unknown) (unknown) (no (unknown) (unknown) Ordering (units (unkno wn) date) Provider: unknown) Carlos Montemayor MD (unknown) (no (unknown) (unknown) PROCEDURE: XR (units (unknown) date) LUMBAR SPINE 2-3V unknown) (unknown) (no (unknown) (unknown) Patient: (units (unkno wn) date) Jackeline,Dominic Gisele unknown) MR#: (unknown) (no (unknown) (unknown) Procedure: XR (units ( unknown) date) lumbar spine 2-3V unknown) (unknown) (no (unknown) (unknown) alignment. No (units (unknown) date) unknown) (unknown) (no (unknown) (unknown) anatomic (units (unkno wn) date) unknown) (unknown) (no (unknown) (unknown) fusion from (units (un known) date) unknown) Result panel 81 (unknown) (no date) (unknown) (unknown) (no value) (units (un known) unknown) (unknown) (no date) (unknown) (unknown) Date of (units (unkn own) Service: unknown) 02/03/22 (unknown) (no date) (unknown) (unknown) Anesthesia (units (un known) Note unknown) (unknown) (no date) (unknown) (unknown) [place] (units (unkn own) [place] [address] unknown) [address] [place] [address] (unknown) (no date) (unknown) (unknown) (no value) (units (un known) unknown) (unknown) (no date) (unknown) (unknown) [id number] (units (unk nown) unknown) (unknown) (no date) (unknown) (unknown) Age/Sex: 76 / (units (unknown) M unknown) (unknown) (no date) (unknown) (unknown) : (units (unkn own) 1945 unknown) Acct:[id number] (unknown) (no date) (unknown) (unknown) Patient: (units (unkn own) Dominic Viveros unknown) D MR#: M (unknown) (no date) (unknown) (unknown) Provider: (units (unk nown) Carlos Montemayor MD unknown) (unknown) (no date) (unknown) (unknown) Signed By: (units (un known) unknown) Result panel 82 (unknown) (no (unknown) (unknown) (no value) (units (unk nown) date) unknown) (unknown) (no (unknown) (unknown) Date of Service: (units (unknown) date) 02/03/22 unknown) (unknown) (no (unknown) (unknown) 02/03/22 1538 (units ( unknown) date) unknown) (unknown) (no (unknown) (unknown) [facility] (units (unknown) date) [address] [place] [address] unknown) [place] [address] (unknown) (no (unknown) (unknown) Operative Note (units (unknown) date) unknown) (unknown) (no (unknown) (unknown) (no value) (units (unk nown) date) unknown) (unknown) (no (unknown) (unknown) The bone grafting (units (unknown) date) material was placed unknown) into the L2-3, L3-4 interbody space along (unknown) (no (unknown) (unknown) The fusion mass on (units (unknown) date) the right side of unknown) L4-5, L5-S1 was exposed by performing a (unknown) (no (unknown) (unknown) The fusion mass (units (unknown) date) was explored and unknown) was found have visible motion indicating (unknown) (no (unknown) (unknown) [id number] (units (unkn own) date) unknown) (unknown) (no (unknown) (unknown) 1. L2-3, L3-4 (units ( unknown) date) posterolateral and unknown) posterior interbody fusion (unknown) (no (unknown) (unknown) 2. History of (units ( unknown) date) L4-5, L5-S1 fusion unknown) with instrumentation (unknown) (no (unknown) (unknown) 2. L2-3, L3-4 (units ( unknown) date) posterior interbody unknown) cage placement (unknown) (no (unknown) (unknown) 3, L3-4 level. The (units (unknown) date) endplates were unknown) decorticated using a rasp and shaver. The (unknown) (no (unknown) (unknown) 3. L4-5, L5-S1 (units (unknown) date) posterior segmental unknown) instrumentation removal (unknown) (no (unknown) (unknown) 4. L4-5, L5-S1 (units (unknown) date) revision unknown) laminectomy with exploration of fusion (unknown) (no (unknown) (unknown) 5. L2-3, L3-4, (units (unknown) date) L4-5, L5-S1 unknown) posterior segmental instrumentation with pedicle (unknown) (no (unknown) (unknown) 6. L4-5 (units (unkno wn) date) posterolatearl unknown) fusion (unknown) (no (unknown) (unknown) 7. [place] of bone (units (unknown) date) marrow from iliac unknown) crest through a separate incision (unknown) (no (unknown) (unknown) 8. Utilization of (units (unknown) date) microsurgical unknown) technique and operating microscope (unknown) (no (unknown) (unknown) 9. Utilization of (units (unknown) date) [employer] robotic unknown) navigation (unknown) (no (unknown) (unknown) Admit to inpatient (units (unknown) date) hospital unknown) (unknown) (no (unknown) (unknown) After all the (units ( unknown) date) hardware was unknown) placed, and confirmed with AP and lateral C-arm (unknown) (no (unknown) (unknown) After patient was (units (unknown) date) prepped and draped, unknown) patient's PSIS was palpated and marked (unknown) (no (unknown) (unknown) Age/Sex: 76 / M (units (unknown) date) unknown) (unknown) (no (unknown) (unknown) Anesthesia Type: (units (unknown) date) General unknown) (unknown) (no (unknown) (unknown) Applied: catheter (units (unknown) date) unknown) (unknown) (no (unknown) (unknown) Medical Insurance Claims Specialist: Elizabet (units (unknown) date) Beh unknown) (unknown) (no (unknown) (unknown) At this time the (units (unknown) date) C-arm imaging was unknown) used to confirm AP and lateral of L2, L3, L4, (unknown) (no (unknown) (unknown) At this time the (units (unknown) date) tulips were unknown) attached to the L2, L3, L4-L5 and S1 pedicle screw (unknown) (no (unknown) (unknown) At this time, a (units (unknown) date) separate skin is unknown) incision was made over the iliac crest. A (unknown) (no (unknown) (unknown) Blood products (units (unknown) date) transfused: none unknown) (unknown) (no (unknown) (unknown) Click Yes if (units (u nknown) date) Unassisted: No unknown) (unknown) (no (unknown) (unknown) Closure Type: (units ( unknown) date) primary unknown) (unknown) (no (unknown) (unknown) Complications: (units (unknown) date) none unknown) (unknown) (no (unknown) (unknown) Condition: stable (units (unknown) date) unknown) (unknown) (no (unknown) (unknown) : 1945 (units (unknown) date) Acct:[id number] unknown) (unknown) (no (unknown) (unknown) Date of procedure: (units (unknown) date) 02/03/22 unknown) (unknown) (no (unknown) (unknown) Disposition: PACU (units (unknown) date) unknown) (unknown) (no (unknown) (unknown) Estimated Blood (units (unknown) date) Loss (mL): 250 unknown) (unknown) (no (unknown) (unknown) Glob[employer] CREO MIS (units (unknown) date) screws, Rise cages unknown) (unknown) (no (unknown) (unknown) Indications: (units (u nknown) date) unknown) (unknown) (no (unknown) (unknown) Jamshidi needle (units (unknown) date) was inserted into unknown) the iliac crest through a separate skin (unknown) (no (unknown) (unknown) L2, L3, L4, L5, S1 (units (unknown) date) pedicle screws it unknown) was pre templated and measured was placed (unknown) (no (unknown) (unknown) L2-3, L3-4, L4-5 (units (unknown) date) level until unknown) bleeding cortical bone was identified. The (unknown) (no (unknown) (unknown) L3, L4 , L5 and (units (unknown) date) S1 pedicle screws unknown) placement. This was done by using the (unknown) (no (unknown) (unknown) L4-5 level. (units (un known) date) unknown) (unknown) (no (unknown) (unknown) L5, and S1 (units (unk nown) date) vertebrae and unknown) merged the C-arm imaging using the [employer] robotic (unknown) (no (unknown) (unknown) MARs retractor was (units (unknown) date) inserted using unknown) [employer] nagivation guidence. Globus MARS (unknown) (no (unknown) (unknown) Neuro monitoring (units (unknown) date) system was used to unknown) monitor patient's neurologic status (unknown) (no (unknown) (unknown) Operative (units (unkn own) date) Date/Time/Diagnoses unknown) (unknown) (no (unknown) (unknown) Operative Notes (units (unknown) date) unknown) (unknown) (no (unknown) (unknown) Patient failed (units ( unknown) date) multiple unknown) conservative management with worsening pain weakness and (unknown) (no (unknown) (unknown) Patient had (units (unk nown) date) previous L4-S1 unknown) lumbar fusion it has been doing well until the last 6 (unknown) (no (unknown) (unknown) Patient has been (units (unknown) date) having chronic back unknown) pain and worsening lumbar radiculopathy. (unknown) (no (unknown) (unknown) Patient tolerated (units (unknown) date) the procedure well. unknown) There were no complications. (unknown) (no (unknown) (unknown) Patient was seen in (units (unknown) date) the preoperative unknown) area. Risks and benefits of the surgery was (unknown) (no (unknown) (unknown) Patient's (units (unkno wn) date) previously placed unknown) hardware over the L4-5 L5-S1 level was identified by (unknown) (no (unknown) (unknown) Patient: (units (unkno wn) date) JackelineDominic Gisele unknown) MR#: M (unknown) (no (unknown) (unknown) Plan for (units (o wn) date) aftercare: unknown) (unknown) (no (unknown) (unknown) Post-op diagnosis: (units (unknown) date) same unknown) (unknown) (no (unknown) (unknown) Post-operative (units (unknown) date) unknown) (unknown) (no (unknown) (unknown) Pre templated (units ( unknown) date) trajectory was used unknown) and guided using the [employer] robotic (unknown) (no (unknown) (unknown) Pre-op diagnosis: (units (unknown) date) 1. 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, L5-S1 spinal stenosis with neurogenic (unknown) (no (unknown) (unknown) Procedure + (units (un known) date) Clinicians unknown) (unknown) (no (unknown) (unknown) Procedure in (units (u nknown) date) detail: unknown) (unknown) (no (unknown) (unknown) Procedure: (units (unk nown) date) unknown) (unknown) (no (unknown) (unknown) Prosthetic (units (unk nown) date) devices, grafts, unknown) tissues, transplants, or devices: (unknown) (no (unknown) (unknown) Provider: Carlos Montemayor (units (unknown) date) unknown) (unknown) (no (unknown) (unknown) Ray-Rocael gauze for (units (unknown) date) 3 min to accomplish unknown) hemostasis. After the gauze was removed (unknown) (no (unknown) (unknown) Same procedure as (units (unknown) date) scheduled: Yes unknown) (unknown) (no (unknown) (unknown) Signed (units (unkno wn) date) By:<Electronically unknown) signed by Carlos Montemayor MD> (unknown) (no (unknown) (unknown) Specimen(s): none (units (unknown) date) sent unknown) (unknown) (no (unknown) (unknown) Surgeon: Carlos Montemayor (units (unknown) date) unknown) (unknown) (no (unknown) (unknown) The disc (units (unkno wn) date) preparation as well unknown) as the cage insertion were also performed under (unknown) (no (unknown) (unknown) Time of procedure: (units (unknown) date) 10:00 unknown) (unknown) (no (unknown) (unknown) Using (units (unkno wn) date) microsurgical unknown) technique and operating microscope, a L2 and L3 laminectomy (unknown) (no (unknown) (unknown) Using patient's (units (unknown) date) previous scar unknown) incision was made over the L2, L3, L4, L5-S1 (unknown) (no (unknown) (unknown) activity of daily (units (unknown) date) living. After unknown) discussing risks benefits of treatment options, (unknown) (no (unknown) (unknown) additional epidural (units (unknown) date) scar tissue for unknown) purpose of decompressing the epidural space. (unknown) (no (unknown) (unknown) and L2-3, L3-4 (units (unknown) date) facetectomy was unknown) performed using a Kerrison rongeur. Patient was (unknown) (no (unknown) (unknown) and locked in (units ( unknown) date) place using locking unknown) caps and torque limiting screwdriver (unknown) (no (unknown) (unknown) aspiration was (units ( unknown) date) combined with local unknown) bone and the Trifecta bone grafting material. (unknown) (no (unknown) (unknown) bilaterally. (units (u nknown) date) Small 1 cm incision unknown) was made over the PSIS for placement of the (unknown) (no (unknown) (unknown) bilaterally. (units (u nknown) date) Total 10 caps and 2 unknown) titanium rods was used in order to complete (unknown) (no (unknown) (unknown) caps which was (units (unknown) date) removed using unknown) globus screwdriver. The locking akbar was then (unknown) (no (unknown) (unknown) claudication (units (u nknown) date) unknown) (unknown) (no (unknown) (unknown) closed with 2-0 (units (unknown) date) Vicryl. The skin unknown) was closed with skin anne-marie. (unknown) (no (unknown) (unknown) completed and (units ( unknown) date) confirmed, skin unknown) marker was used to jose out the skin incision (unknown) (no (unknown) (unknown) decompressed after (units (unknown) date) the laminectomy unknown) facetectomy. More than 75% of the facets (unknown) (no (unknown) (unknown) decortication was (units (unknown) date) completed, Trifecta unknown) bone graft material was combined with (unknown) (no (unknown) (unknown) discussed with the (units (unknown) date) patient. Informed unknown) consent was obtained from the patient and (unknown) (no (unknown) (unknown) dissecting down to (units (unknown) date) the level the unknown) hardware using a Bovie and a Romeo. The locking (unknown) (no (unknown) (unknown) drill was placed (units (unknown) date) also using the unknown) robotic arm and guided using the navigation (unknown) (no (unknown) (unknown) facetectomy was (units (unknown) date) saved for local unknown) bone grafting. 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 Patient was (unknown) (no (unknown) (unknown) good purchase. (units (unknown) date) unknown) (unknown) (no (unknown) (unknown) grossly unstable (units (unknown) date) and required a unknown) fusion procedure at the same time. The disc (unknown) (no (unknown) (unknown) gutter. Using the (units (unknown) date) power drill, unknown) posterior-lateral decortication was performed at (unknown) (no (unknown) (unknown) imaging, the wound (units (unknown) date) was then irrigated unknown) with sterile normal saline and packed with (unknown) (no (unknown) (unknown) incision using a (units (unknown) date) Jamshidi needle unknown) from the iliac crest. The bone marrow (unknown) (no (unknown) (unknown) incision. 5 cc of (units (unknown) date) bone marrow unknown) aspiration was obtained through the separate skin (unknown) (no (unknown) (unknown) interval on the (units (unknown) date) left side. Fascia unknown) was incised in line with skin incision. (unknown) (no (unknown) (unknown) lateral gutter he (units (unknown) date) order to accomplish unknown) posterolateral fusion at the L2-3, L3-4, (unknown) (no (unknown) (unknown) local bone that (units (unknown) date) was harvested unknown) earlier. (unknown) (no (unknown) (unknown) month. (units (unkno wn) date) unknown) (unknown) (no (unknown) (unknown) navigation (units (unk nown) date) guidance. After unknown) the cage was placed, AP and lateral C-arm imaging (unknown) (no (unknown) (unknown) navigation system (units (unknown) date) for left L2, L3, unknown) L4, L5 and S1 pedicle screws and right L2, (unknown) (no (unknown) (unknown) navigation system (units (unknown) date) with the CT of the unknown) lumbar spine. After successful merging was (unknown) (no (unknown) (unknown) numbness in his (units (unknown) date) lower extremity. unknown) Patient has been having difficulty performing (unknown) (no (unknown) (unknown) onto the power (units (unknown) date) taxi cab driver and inserted unknown) into the pedicles bilaterally. After all 10 (unknown) (no (unknown) (unknown) operative room. (units (unknown) date) General anesthesia unknown) was administered. Prophylactic antibiotic was (unknown) (no (unknown) (unknown) patient elected (units (unknown) date) proceed with unknown) surgery. (unknown) (no (unknown) (unknown) performed using (units (unknown) date) the [place] unknown) rongeur to undercut the lamina as well removing (unknown) (no (unknown) (unknown) placed in the (units ( unknown) date) chart. Surgical unknown) site was marked. Patient was taken to the (unknown) (no (unknown) (unknown) placed into a (units ( unknown) date) prone position on unknown) the Johnathan table. Patient's back was then (unknown) (no (unknown) (unknown) placement. (units (unk nown) date) Excellent placement unknown) of the screws were confirmed and a matched (unknown) (no (unknown) (unknown) precisely with the (units (unknown) date) pre planned screw unknown) placement using the navigation system. (unknown) (no (unknown) (unknown) prepped and draped (units (unknown) date) in the sterile unknown) fashion. Time-out was performed at this time. (unknown) (no (unknown) (unknown) pseudoarthrosis at (units (unknown) date) L4-5 level and unknown) solid at the L5-S1 level. Globus MARS (unknown) (no (unknown) (unknown) reference probe (units (unknown) date) was attached to the unknown) trocar of the reference apparatus. (unknown) (no (unknown) (unknown) reference probes. (units (unknown) date) Two trocar was unknown) placed into the PSIS 1 on each side. The (unknown) (no (unknown) (unknown) remaining bone (units (unknown) date) grafting material unknown) was placed into the L2-3, L3-4, L4-5 posterior (unknown) (no (unknown) (unknown) removed from the (units (unknown) date) tulips of the unknown) pedicle screws using a Ginny. The pedicle (unknown) (no (unknown) (unknown) retractor was (units ( unknown) date) inserted and docked unknown) onto the L2-3, L3-4, L4-5 posterolateral (unknown) (no (unknown) (unknown) retractors was (units (unknown) date) placed inside the unknown) incision and docked onto the L2 and L3 lamina. (unknown) (no (unknown) (unknown) right-sided (units (un known) date) hemilaminectomy at unknown) L4-5 L5-S1 level. The hemilaminectomy was (unknown) (no (unknown) (unknown) robotic arm to (units (unknown) date) guide the unknown) high-speed bur to make a cortical entry point. Next a (unknown) (no (unknown) (unknown) screw placement (units (unknown) date) unknown) (unknown) (no (unknown) (unknown) screws were placed (units (unknown) date) C-arm imaging was unknown) taken of both AP and lateral to confirm the (unknown) (no (unknown) (unknown) screws were then (units (unknown) date) removed using the unknown) screwdriver. The screws were found to have (unknown) (no (unknown) (unknown) shanks. This was (units (unknown) date) done in L2, L3, unknown) L4-L5 S1 pedicles bilaterallyAfter measuring (unknown) (no (unknown) (unknown) signals throughout (units (unknown) date) the case. unknown) (unknown) (no (unknown) (unknown) space at L2-3, (units (unknown) date) L3-4 was unknown) identified, and a total diskectomy was performed at L2- (unknown) (no (unknown) (unknown) system drilling (units (unknown) date) partially through unknown) bilateral L2, L3, L4, L5, S1 pedicles. Next (unknown) (no (unknown) (unknown) the deep fascia (units (unknown) date) was closed with #1 unknown) Vicryl suture. The subcutaneous layer was (unknown) (no (unknown) (unknown) the length of the (units (unknown) date) rods, they were unknown) inserted into the tulips of the pedicle screws (unknown) (no (unknown) (unknown) the posterior (units ( unknown) date) instrumentation unknown) construct. (unknown) (no (unknown) (unknown) throughout entire (units (unknown) date) procedure. There unknown) was no disturbance of the neural monitoring (unknown) (no (unknown) (unknown) to accomplish a (units (unknown) date) L2-3, L3-4 fusion. unknown) The local bone from the laminectomy and (unknown) (no (unknown) (unknown) torque limiting (units (unknown) date) screwdriver. unknown) (unknown) (no (unknown) (unknown) total diskectomy (units (unknown) date) and decortication unknown) was performed at L2-3, L3-4 level in order to (unknown) (no (unknown) (unknown) using the (units (unkn own) date) [employer] robotic unknown) arm. Bilateral incision was made at this time. (unknown) (no (unknown) (unknown) was taken to (units (un known) date) confirm placement unknown) of the cage and excellent position was confirmed. (unknown) (no (unknown) (unknown) were removed (units (u nknown) date) during the process unknown) of decompression rendering L2-3, L3-4 level (unknown) (no (unknown) (unknown) with a expandable (units (unknown) date) cage. The cages unknown) were expanded to its maximum height using the Result panel 83 (unknown) (no date) (unknown) (unknown) 0.2 E.U./dL (unkn own) (unknown) (no date) (unknown) (unknown) 1+ (units (unkn own) unknown) (unknown) (no date) (unknown) (unknown) 1.025 (units (unkn own) unknown) (unknown) (no date) (unknown) (unknown) 3+ (units (unkn own) unknown) (unknown) (no date) (unknown) (unknown) 5.5 (units (unkn own) unknown) (unknown) (no date) (unknown) (unknown) CLOUDY (units (unkn own) unknown) (unknown) (no date) (unknown) (unknown) NEGATIVE (units (unkn own) unknown) (unknown) (no date) (unknown) (unknown) NEGATIVE g/dL (unkn own) (unknown) (no date) (unknown) (unknown) TRACE (units (unkn own) unknown) (unknown) (no date) (unknown) (unknown) YELLOW (units (unkn own) unknown) Result panel 84 (unknown) (no date) (unknown) (unknown) 0.2 E.U./dL (unkn own) (unknown) (no date) (unknown) (unknown) 1+ (units (unkn own) unknown) (unknown) (no date) (unknown) (unknown) 1-5 /HPF (units (unkn own) unknown) (unknown) (no date) (unknown) (unknown) 1.025 (units (unkn own) unknown) (unknown) (no date) (unknown) (unknown) 10-30/HPF (units (unk nown) unknown) (unknown) (no date) (unknown) (unknown) 3+ (units (unkn own) unknown) (unknown) (no date) (unknown) (unknown) 5.5 (units (unkn own) unknown) (unknown) (no date) (unknown) (unknown) CLOUDY (units (unkn own) unknown) (unknown) (no date) (unknown) (unknown) Cholesterol (units (u nknown) unknown) (unknown) (no date) (unknown) (unknown) Cult Not (units (unkn own) Indicated unknown) (unknown) (no date) (unknown) (unknown) NEGATIVE (units (unkn own) unknown) (unknown) (no date) (unknown) (unknown) NEGATIVE g/dL (unkn own) (unknown) (no date) (unknown) (unknown) None Seen (units (unk nown) unknown) (unknown) (no date) (unknown) (unknown) None Seen (units (unk nown) unknown) (unknown) (no date) (unknown) (unknown) TRACE (units (unkn own) unknown) (unknown) (no date) (unknown) (unknown) YELLOW (units (unkn own) unknown) Result panel 85 (unknown) (no date) (unknown) (unknown) Negative for (units ( unknown) MRSA unknown) Result panel 86 (unknown) (no date) (unknown) (unknown) 12.6 g/dL (unkn own) (unknown) (no date) (unknown) (unknown) 35.4 % (unkn own) Result panel 87 (unknown) (no (unknown) (unknown) (no value) (units (unk nown) date) unknown) (unknown) (no (unknown) (unknown) Date of Service: (units (unknown) date) 02/03/22 unknown) (unknown) (no (unknown) (unknown) (no value) (units (unk nown) date) unknown) (unknown) (no (unknown) (unknown) - (units (unkno wn) date) unknown) (unknown) (no (unknown) (unknown) 02/04/22 08:53 (units (unknown) date) unknown) (unknown) (no (unknown) (unknown) 02/04/22 1012 (units ( unknown) date) unknown) (unknown) (no (unknown) (unknown) [facility] (units (unknown) date) [address] unknown) [place] [address] (unknown) (no (unknown) (unknown) Laboratory (units (unk nown) date) Results - last 24 unknown) hr (unknown) (no (unknown) (unknown) Operation Date: (units (unknown) date) 02/03/22 09:15 unknown) (unknown) (no (unknown) (unknown) Procedures (units (unk nown) date) unknown) (unknown) (no (unknown) (unknown) Progress Note (units ( unknown) date) unknown) (unknown) (no (unknown) (unknown) (no value) (units (unk nown) date) unknown) (unknown) (no (unknown) (unknown) 02/03/22 02/03/22 (units (unknown) date) 02/04/22 unknown) (unknown) (no (unknown) (unknown) 16:44 17:50 08:53 (units (unknown) date) unknown) (unknown) (no (unknown) (unknown) 02/04/22 (units (unkno wn) date) unknown) (unknown) (no (unknown) (unknown) He cannot (units (unkn own) date) tolerate morphine unknown) or Dilaudid. Had a long conversation explained he (unknown) (no (unknown) (unknown) and L2 through S1 (units (unknown) date) instrumentation unknown) (unknown) (no (unknown) (unknown) (past 8 hours): (units (unknown) date) unknown) (unknown) (no (unknown) (unknown) -DC catheter (units (u nknown) date) today. UA unknown) demonstrated hematuria, but no acute infection. This (unknown) (no (unknown) (unknown) -DC home in 1-2 (units (unknown) date) days, once cleared unknown) by PT and pain is well managed. (unknown) (no (unknown) (unknown) -continue with (units (unknown) date) current multimodal unknown) pain management. Had a very long discussion (unknown) (no (unknown) (unknown) -hematuria (units (unk nown) date) unknown) (unknown) (no (unknown) (unknown) -history of (units (un known) date) sensitivity to unknown) pain medications, currently well controlled (unknown) (no (unknown) (unknown) [id number] (units (unkn own) date) unknown) (unknown) (no (unknown) (unknown) 04:00 02/04/22 (units (unknown) date) unknown) (unknown) (no (unknown) (unknown) 06:01 02/04/22 (units (unknown) date) unknown) (unknown) (no (unknown) (unknown) 08:00 (units (unkno wn) date) unknown) (unknown) (no (unknown) (unknown) Achalasia (units (unkn own) date) unknown) (unknown) (no (unknown) (unknown) Actual Procedure (units (unknown) date) Side Surgeon unknown) (unknown) (no (unknown) (unknown) Age/Sex: 76 / M (units (unknown) date) unknown) (unknown) (no (unknown) (unknown) Anginal pain (units (u nknown) date) unknown) (unknown) (no (unknown) (unknown) Assessment + Plan (units (unknown) date) Post-op unknown) (unknown) (no (unknown) (unknown) Asthma (units (unkno wn) date) unknown) (unknown) (no (unknown) (unknown) Atrial (units (unkno wn) date) fibrillation unknown) (unknown) (no (unknown) (unknown) Blood Pressure (units (unknown) date) 103/57 L unknown) (unknown) (no (unknown) (unknown) COPD (chronic (units ( unknown) date) obstructive unknown) pulmonary disease) (unknown) (no (unknown) (unknown) Cervical spinal (units (unknown) date) stenosis unknown) (unknown) (no (unknown) (unknown) 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 (10/22/16) (unknown) (no (unknown) (unknown) Coronary artery (units (unknown) date) disease unknown) (unknown) (no (unknown) (unknown) : 1945 (units (unknown) date) Acct:[id number] unknown) (unknown) (no (unknown) (unknown) Date Patient (units (u nknown) date) Seen: 02/04/22 unknown) (unknown) (no (unknown) (unknown) Exam (units (unkno wn) date) unknown) (unknown) (no (unknown) (unknown) Exam Narrative: (units (unknown) date) unknown) (unknown) (no (unknown) (unknown) Family History (units (unknown) date) (Reviewed 02/04/22 unknown) @ 10:10 by Yas Maravilla PA-C) (unknown) (no (unknown) (unknown) Father (units (unkno wn) date) Hypertension unknown) (unknown) (no (unknown) (unknown) H/O arthroscopic (units (unknown) date) knee surgery unknown) (11/14/17) (unknown) (no (unknown) (unknown) Hct 35.4 L (units ( unknown) date) unknown) (unknown) (no (unknown) (unknown) Hgb 12.6 L (units ( unknown) date) unknown) (unknown) (no (unknown) (unknown) His is at (units ( unknown) date) bedside this unknown) morning. She is very adamant about his medications. (unknown) (no (unknown) (unknown) History of aortic (units (unknown) date) dissection unknown) () (unknown) (no (unknown) (unknown) History of (units (unk nown) date) arthroplasty of unknown) left knee (05/24/19) (unknown) (no (unknown) (unknown) History of (units (unk nown) date) arthroplasty of unknown) right knee (unknown) (no (unknown) (unknown) History of (units (unk nown) date) bilateral total unknown) hip arthroplasty (unknown) (no (unknown) (unknown) History of (units (unk nown) date) cardiac cath unknown) () (unknown) (no (unknown) (unknown) History of (units (unk nown) date) esophageal surgery unknown) (unknown) (no (unknown) (unknown) History of (units (unk nown) date) incision and unknown) drainage (-2016) (unknown) (no (unknown) (unknown) History of prior (units (unknown) date) ablation treatment unknown) (-03/2017) (unknown) (no (unknown) (unknown) History of (units (unk nown) date) surgery unknown) (unknown) (no (unknown) (unknown) Hx of (units (unkno wn) date) cholecystectomy unknown) (unknown) (no (unknown) (unknown) Hx of hernia (units (u nknown) date) repair unknown) (unknown) (no (unknown) (unknown) Hx of sinus (units (un known) date) surgery unknown) (unknown) (no (unknown) (unknown) Hypertension (units (u nknown) date) unknown) (unknown) (no (unknown) (unknown) Interval history: (units (unknown) date) unknown) (unknown) (no (unknown) (unknown) Ischemic (units (unkno wn) date) cardiomyopathy unknown) (unknown) (no (unknown) (unknown) Labs (units (unkno wn) date) unknown) (unknown) (no (unknown) (unknown) Labs: (units (unkno wn) date) unknown) (unknown) (no (unknown) (unknown) Medical History (units (unknown) date) (Reviewed 02/04/22 unknown) @ 10:10 by Yas Maravilla PA-C) (unknown) (no (unknown) (unknown) Mother (units (unknown) date) Stroke unknown) (unknown) (no (unknown) (unknown) Motor functions (units (unknown) date) are grossly unknown) intact, sensation is grossly intact to light touch, (unknown) (no (unknown) (unknown) Narcotic (units (unkno wn) date) dependence unknown) (unknown) (no (unknown) (unknown) Narrative (units (unkn own) date) unknown) (unknown) (no (unknown) (unknown) Nasal Screen MRSA (units (unknown) date) (PCR) Negative unknown) for mrsa (unknown) (no (unknown) (unknown) Neck pain, (units (unk nown) date) chronic unknown) (unknown) (no (unknown) (unknown) Objective (units (unkn own) date) unknown) (unknown) (no (unknown) (unknown) Other Crystals (units (unknown) date) Cholesterol unknown) (unknown) (no (unknown) (unknown) Oxygen Delivery (units (unknown) date) Method Nasal unknown) Cannula (unknown) (no (unknown) (unknown) Oxygen Delivery (units (unknown) date) Method Nasal unknown) Cannula (unknown) (no (unknown) (unknown) Oxygen Flow Rate (units (unknown) date) 0 unknown) (unknown) (no (unknown) (unknown) Oxygen Flow Rate (units (unknown) date) 2 0 unknown) (unknown) (no (unknown) (unknown) PFSH (units (unkno wn) date) unknown) (unknown) (no (unknown) (unknown) Patient is (units (unk nown) date) complaining of unknown) [id number] low back pain this morning. He has (unknown) (no (unknown) (unknown) Patient: (units (unkno wn) date) JackelineDominic pike unknown) MR#: M (unknown) (no (unknown) (unknown) Pleasant (units (unkno wn) date) 76-year-old male, unknown) resting comfortably in bed, no acute distress. (unknown) (no (unknown) (unknown) Postoperative (units ( unknown) date) unknown) (unknown) (no (unknown) (unknown) Postoperative (units ( unknown) date) day: 1 unknown) (unknown) (no (unknown) (unknown) Postoperative (units ( unknown) date) plan narrative: unknown) -mobilize with PT/OT. Weightbearing as tolerated (unknown) (no (unknown) (unknown) Postoperative (units ( unknown) date) plan: routine unknown) post-op care (unknown) (no (unknown) (unknown) Postoperative (units (u nknown) date) status narrative: unknown) -stable status post L4-5, L5-S1 hardware removal (unknown) (no (unknown) (unknown) Postoperative (units ( unknown) date) status: doing well unknown) (unknown) (no (unknown) (unknown) Procedures: (units (un known) date) unknown) (unknown) (no (unknown) (unknown) Provider: (units (unkn own) date) Yas Maravilla unknown) P.A-C (unknown) (no (unknown) (unknown) Pulse Oximetry 96 (units (unknown) date) 93 90 L unknown) (unknown) (no (unknown) (unknown) Pulse Rate 95 H (units (unknown) date) 93 H unknown) (unknown) (no (unknown) (unknown) Respiratory Rate (units (unknown) date) 16 17 unknown) (unknown) (no (unknown) (unknown) Result Diagrams: (units (unknown) date) unknown) (unknown) (no (unknown) (unknown) S/P CABG x 3 (units (u nknown) date) (-08/2007) unknown) (unknown) (no (unknown) (unknown) S/P cervical (units (u nknown) date) spinal fusion unknown) (unknown) (no (unknown) (unknown) S/P lumbar fusion (units (unknown) date) unknown) (unknown) (no (unknown) (unknown) Signed (units (unkno wn) date) By:<Electronically unknown) signed by Yas Maravilla> (unknown) (no (unknown) (unknown) Smoking Status: (units (unknown) date) Former smoker unknown) (unknown) (no (unknown) (unknown) Social History (units (unknown) date) (Reviewed 02/04/22 unknown) @ 10:10 by Yas Maravilla PA-C) (unknown) (no (unknown) (unknown) Subjective (units (unk nown) date) unknown) (unknown) (no (unknown) (unknown) Surgical History (units (unknown) date) (Reviewed 02/04/22 unknown) @ 10:10 by Yas Maravilla PA-C) (unknown) (no (unknown) (unknown) Temperature (units (un known) date) 98.1 F unknown) (unknown) (no (unknown) (unknown) Time Patient (units (u nknown) date) Seen: 09:00 unknown) (unknown) (no (unknown) (unknown) Ur Culture (units (unk nown) date) Indicated? Cult unknown) not indicated (unknown) (no (unknown) (unknown) Ur Leukocyte (units (u nknown) date) Esterase Negative unknown) (unknown) (no (unknown) (unknown) Ur Specific (units (un known) date) Falcon 1.025 unknown) (unknown) (no (unknown) (unknown) Ur Squamous Epith (units (unknown) date) Cells 1-5 /hpf unknown) (unknown) (no (unknown) (unknown) Urine Appearance (units (unknown) date) Cloudy unknown) (unknown) (no (unknown) (unknown) Urine Bacteria (units (unknown) date) None seen unknown) (unknown) (no (unknown) (unknown) Urine Bilirubin (units (unknown) date) Negative unknown) (unknown) (no (unknown) (unknown) Urine Color (units (un known) date) Yellow unknown) (unknown) (no (unknown) (unknown) Urine Glucose (units ( unknown) date) (UA) Negative unknown) (unknown) (no (unknown) (unknown) Urine Ketones (units ( unknown) date) Trace H unknown) (unknown) (no (unknown) (unknown) Urine Nitrate (units ( unknown) date) Negative unknown) (unknown) (no (unknown) (unknown) Urine Occult (units (u nknown) date) Blood 3+ H unknown) (unknown) (no (unknown) (unknown) Urine Protein 1+ (units (unknown) date) H unknown) (unknown) (no (unknown) (unknown) Urine RBC (units (unkn own) date) 10-30/hpf H unknown) (unknown) (no (unknown) (unknown) Urine (units (unkno wn) date) Urobilinogen 0.2 unknown) (unknown) (no (unknown) (unknown) Urine WBC None (units (unknown) date) seen unknown) (unknown) (no (unknown) (unknown) Urine pH 5.5 (units ( unknown) date) unknown) (unknown) (no (unknown) (unknown) Ventricular (units (un known) date) bigeminy unknown) (unknown) (no (unknown) (unknown) Vital Signs (units (un known) date) unknown) (unknown) (no (unknown) (unknown) [Embedded Image (units (unknown) date) Not Available] unknown) (unknown) (no (unknown) (unknown) about finding the (units (unknown) date) balance between unknown) controlling his pain and side effects. He (unknown) (no (unknown) (unknown) alcohol intake: (units (unknown) date) current unknown) (unknown) (no (unknown) (unknown) also is using his (units (unknown) date) baseline Tylenol, unknown) Tylenol No. 3 an Ativan. This seems to be (unknown) (no (unknown) (unknown) appropriately to (units (unknown) date) the current unknown) regimen of medications. He is not excessively (unknown) (no (unknown) (unknown) been using (units (unk nown) date) fentanyl patch 12 unknown) mcg oxycodone 10 mg and occasional Vistaril. He (unknown) (no (unknown) (unknown) but there is no (units (unknown) date) surrounding unknown) erythema or induration. Bilateral lower extremity: (unknown) (no (unknown) (unknown) calves are soft (units (unknown) date) and nontender to unknown) palpation. (unknown) (no (unknown) (unknown) control and (units (un known) date) somnolence. He unknown) denies any new numbness or tingling. Overall he is (unknown) (no (unknown) (unknown) controlling his (units (unknown) date) pain well. He has unknown) had major issues in the past with pain (unknown) (no (unknown) (unknown) could be (units (unkno wn) date) traumatic from the unknown) Padilla catheter placement. (unknown) (no (unknown) (unknown) current (units (unkno wn) date) medications unknown) (unknown) (no (unknown) (unknown) feeling pretty (units (unknown) date) well after his unknown) surgery yesterday. (unknown) (no (unknown) (unknown) household (units (unkn own) date) members: spouse unknown) (unknown) (no (unknown) (unknown) is at bedside and (units (unknown) date) is being somewhat unknown) pushy. Bilateral dressings are saturated (unknown) (no (unknown) (unknown) is not taking (units ( unknown) date) those medications unknown) currently. She is very concerned and does not (unknown) (no (unknown) (unknown) monitor him, but (units (unknown) date) if he does well we unknown) will likely discharge him home on these (unknown) (no (unknown) (unknown) p L2-3, L3-4 (units (u nknown) date) TLIF, L2-S1 PSF w. unknown) posterior instrumentation, L1-2 laminectomy - (unknown) (no (unknown) (unknown) robot Carlos Montemayor, (units (unknown) date) unknown) (unknown) (no (unknown) (unknown) see how he (units (unk nown) date) progresses during unknown) his hospital stay. (unknown) (no (unknown) (unknown) seems to be very (units (unknown) date) appropriately unknown) managed this morning from my standpoint. We will (unknown) (no (unknown) (unknown) somnolent, I am (units (unknown) date) pleased with his unknown) current pain regimen. We will continue to (unknown) (no (unknown) (unknown) substance use (units ( unknown) date) type: does not unknown) use (unknown) (no (unknown) (unknown) want him to be (units (unknown) date) discharged on a unknown) fentanyl patch. Again, we had a long discussion (unknown) (no (unknown) (unknown) with front wheel (units (unknown) date) walker. Limit unknown) bending, lifting, twisting x6 weeks (unknown) (no (unknown) (unknown) with the patient (units (unknown) date) and his unknown) today. The patient seems to be responding Result panel 88 (unknown) (no date) (unknown) (unknown) (no value) (units (un known) unknown) (unknown) (no date) (unknown) (unknown) [address]units ([address]own) [address] unknown) (unknown) (no date) (unknown) (unknown) ALINA [place] (units (unknown) [id number] unknown) (unknown) (no date) (unknown) (unknown) [facility]) (unknown) (no date) (unknown) (unknown) Signed (units (unkn own) unknown) (unknown) (no date) (unknown) (unknown) XRay Report (units (u nknown) unknown) (unknown) (no date) (unknown) (unknown) (no value) (units (un known) unknown) (unknown) (no date) (unknown) (unknown) 02/04/22 (units (unkn own) unknown) (unknown) (no date) (unknown) (unknown) Approved by: (units ( unknown) [place] unknown) Clifford Jaimes on 02/04/2022 at 19:07 (unknown) (no date) (unknown) (unknown) Bones and (units (unk nown) chest wall: No unknown) suspicious bony lesions. Overlying soft tissues (unknown) (no date) (unknown) (unknown) COMPARISON[facility] [facility] [place] [facility], [facility], XR CHEST 1V, 11/28/2021, 15:25. (unknown) (no date) (unknown) (unknown) Dictated by: (units ( unknown) [place] unknown) Clifford Jaimes on 02/04/2022 at 19:06 (unknown) (no date) (unknown) (unknown) FINDINGS: (units (unk nown) unknown) (unknown) (no date) (unknown) (unknown) IMPRESSION: (units (u nknown) No evidence unknown) acute pulmonary process. (unknown) (no date) (unknown) (unknown) INDICATIONS: (units ( unknown) wheezing, fever unknown) (unknown) (no date) (unknown) (unknown) Lungs and (units (unk nown) pleura: Lungs unknown) are clear. No pleural effusions or pneumothorax. (unknown) (no date) (unknown) (unknown) Mediastinum: (units ( unknown) Mediastinal unknown) contours appear normal. Unchanged borderline (unknown) (no date) (unknown) (unknown) Surgical (units (unkn own) changes and unknown) devices: Midline sternotomy (unknown) (no date) (unknown) (unknown) TECHNIQUE: (units (un known) One view of the unknown) chest was acquired. (unknown) (no date) (unknown) (unknown) unremarkable. (units (unknown) unknown) (unknown) (no date) (unknown) (unknown) Accession (units (unk nown) Number: unknown) [id number] (unknown) (no date) (unknown) (unknown) Age/Sex: 76 / (units (unknown) M Date of unknown) Service: (unknown) (no date) (unknown) (unknown) : (units (unkn own) 1945 unknown) Acct:[id number] (unknown) (no date) (unknown) (unknown) Loc: [facility] (units (unkn own) 224-1 unknown) (unknown) (no date) (unknown) (unknown) [id number] (units (un known) unknown) (unknown) (no date) (unknown) (unknown) Ordering (units (unkn own) Provider: unknown) Elizabet Layton P.A-C (unknown) (no date) (unknown) (unknown) PROCEDURE: XR (units (unknown) CHEST 1V unknown) (unknown) (no date) (unknown) (unknown) Patient: (units (unkn own) Dominic Viveros unknown) D MR#: (unknown) (no date) (unknown) (unknown) Procedure: XR (units (unknown) chest 1V unknown) (unknown) (no date) (unknown) (unknown) appear (units (unkn own) unknown) (unknown) (no date) (unknown) (unknown) cardiomegaly. (units (unknown) unknown) Result panel 89 (unknown) (no (unknown) (unknown) (no value) (units (unk nown) date) unknown) (unknown) (no (unknown) (unknown) Date of Service: (units (unknown) date) 02/03/22 unknown) (unknown) (no (unknown) (unknown) 02/04/22 1753 (units ( unknown) date) unknown) (unknown) (no (unknown) (unknown) Event Note (units (unk nown) date) unknown) (unknown) (no (unknown) (unknown) [facility] (units (unknown) date) [address] unknown) [place] [address] (unknown) (no (unknown) (unknown) Will order CXR. (units (unknown) date) unknown) (unknown) (no (unknown) (unknown) (no value) (units (unk nown) date) unknown) (unknown) (no (unknown) (unknown) (amenable to (units (u nknown) date) APAP), and has unknown) been noncompliant w/ spirometer use. (unknown) (no (unknown) (unknown) [id number] (units (unkn own) date) unknown) (unknown) (no (unknown) (unknown) Age/Sex: 76 / M (units (unknown) date) unknown) (unknown) (no (unknown) (unknown) : 1945 (units (unknown) date) Acct:[id number] unknown) (unknown) (no (unknown) (unknown) Date Patient (units (u nknown) date) Seen: 02/04/22 unknown) (unknown) (no (unknown) (unknown) Event Note (units (unk nown) date) unknown) (unknown) (no (unknown) (unknown) Event Note (Rapid (units (unknown) date) Response, Code, or unknown) fall): (unknown) (no (unknown) (unknown) Hopefully, these (units (unknown) date) changes will unknown) result in better cognition. (unknown) (no (unknown) (unknown) Patient: (units (unkno wn) date) Dominic Viveros Gisele unknown) MR#: M (unknown) (no (unknown) (unknown) Per RN, he has (units (unknown) date) also been wheezing unknown) all day, had a low-grade fever earlier (unknown) (no (unknown) (unknown) Plan: D/c (units (unk nown) date) vistaril, d/c unknown) fentanyl patch. Will add Tramadol as an alternative (unknown) (no (unknown) (unknown) Provider: (units (unkn own) date) Elizabet Layton P.A-C unknown) (unknown) (no (unknown) (unknown) Signed (units (unkno wn) date) By:<Electronically unknown) signed by Elizabet Layton> (unknown) (no (unknown) (unknown) Stopped up to (units ( unknown) date) check on pts unknown) progress throughout the day. Per RN report and PT (unknown) (no (unknown) (unknown) Time Patient (units (u nknown) date) Seen: 17:49 unknown) (unknown) (no (unknown) (unknown) for moderate pain (units (unknown) date) control as well as unknown) IV fentanyl for severe break through pain. (unknown) (no (unknown) (unknown) he had to stop (units (unknown) date) while telling me unknown) his birthday because he forgot the question. (unknown) (no (unknown) (unknown) nonagitated but (units (unknown) date) complaining of unknown) severe pain. He appears to be comfortable. He (unknown) (no (unknown) (unknown) notes, pt has (units ( unknown) date) been agitated and unknown) noncompliant with movement recommendations (unknown) (no (unknown) (unknown) responds to (units (un known) date) questions unknown) appropriately, but forgets what he is saying mid-thought; (unknown) (no (unknown) (unknown) throughout the (units (unknown) date) day. On my visit, unknown) pt is sitting in chair, somnolent and Result panel 90 (unknown) (no (unknown) (unknown) (no value) (units (unk nown) date) unknown) (unknown) (no (unknown) (unknown) Date of Service: (units (unknown) date) 02/03/22 unknown) (unknown) (no (unknown) (unknown) (no value) (units (unk nown) date) unknown) (unknown) (no (unknown) (unknown) - (units (unkno wn) date) unknown) (unknown) (no (unknown) (unknown) 02/04/22 08:53 (units (unknown) date) unknown) (unknown) (no (unknown) (unknown) [facility] (units (unknown) date) [address] unknown) [place] [address] (unknown) (no (unknown) (unknown) Laboratory (units (unk nown) date) Results - last unknown) hr (unknown) (no (unknown) (unknown) Operation Date: (units (unknown) date) 02/03/22 09:15 unknown) (unknown) (no (unknown) (unknown) Procedures (units (unk nown) date) unknown) (unknown) (no (unknown) (unknown) Progress Note (units ( unknown) date) unknown) (unknown) (no (unknown) (unknown) (no value) (units (unk nown) date) unknown) (unknown) (no (unknown) (unknown) 02/04/22 (units (unkno wn) date) unknown) (unknown) (no (unknown) (unknown) 08:53 (units (unkno wn) date) unknown) (unknown) (no (unknown) (unknown) 02/05/22 (units (unkno wn) date) unknown) (unknown) (no (unknown) (unknown) (past 8 hours): (units (unknown) date) unknown) (unknown) (no (unknown) (unknown) [id number] (units (unkn own) date) unknown) (unknown) (no (unknown) (unknown) 00:55 02/05/22 (units (unknown) date) unknown) (unknown) (no (unknown) (unknown) 02:22 02/05/22 (units (unknown) date) unknown) (unknown) (no (unknown) (unknown) 02:25 (units (unkno wn) date) unknown) (unknown) (no (unknown) (unknown) 03:10 (units (unkno wn) date) unknown) (unknown) (no (unknown) (unknown) Achalasia (units (unkn own) date) unknown) (unknown) (no (unknown) (unknown) Actual Procedure (units (unknown) date) Side Surgeon unknown) (unknown) (no (unknown) (unknown) Age/Sex: 76 / M (units (unknown) date) unknown) (unknown) (no (unknown) (unknown) Anginal pain (units (u nknown) date) unknown) (unknown) (no (unknown) (unknown) Assessment + Plan (units (unknown) date) Post-op unknown) (unknown) (no (unknown) (unknown) Asthma (units (unkno wn) date) unknown) (unknown) (no (unknown) (unknown) Atrial (units (unkno wn) date) fibrillation unknown) (unknown) (no (unknown) (unknown) Blood Pressure (units (unknown) date) 118/64 unknown) (unknown) (no (unknown) (unknown) Blood Pressure (units (unknown) date) 95/52 L 135/76 unknown) (unknown) (no (unknown) (unknown) COPD (chronic (units ( unknown) date) obstructive unknown) pulmonary disease) (unknown) (no (unknown) (unknown) Cervical spinal (units (unknown) date) stenosis unknown) (unknown) (no (unknown) (unknown) 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 (10/22/16) (unknown) (no (unknown) (unknown) Coronary artery (units (unknown) date) disease unknown) (unknown) (no (unknown) (unknown) : 1945 (units (unknown) date) Acct:[id number] unknown) (unknown) (no (unknown) (unknown) Date Patient (units (u nknown) date) Seen: 02/05/22 unknown) (unknown) (no (unknown) (unknown) Exam (units (unkno wn) date) unknown) (unknown) (no (unknown) (unknown) Family History (units (unknown) date) (Reviewed 02/04/22 unknown) @ 10:10 by Yas Maravilla PA-C) (unknown) (no (unknown) (unknown) Father (units (unkno wn) date) Hypertension unknown) (unknown) (no (unknown) (unknown) H/O arthroscopic (units (unknown) date) knee surgery unknown) (11/14/17) (unknown) (no (unknown) (unknown) Hct 35.4 L (units (un known) date) unknown) (unknown) (no (unknown) (unknown) Hgb 12.6 L (units (un known) date) unknown) (unknown) (no (unknown) (unknown) History of aortic (units (unknown) date) dissection unknown) () (unknown) (no (unknown) (unknown) History of (units (unk nown) date) arthroplasty of unknown) left knee (05/24/19) (unknown) (no (unknown) (unknown) History of (units (unk nown) date) arthroplasty of unknown) right knee (unknown) (no (unknown) (unknown) History of (units (unk nown) date) bilateral total unknown) hip arthroplasty (unknown) (no (unknown) (unknown) History of (units (unk nown) date) cardiac cath unknown) () (unknown) (no (unknown) (unknown) History of (units (unk nown) date) esophageal surgery unknown) (unknown) (no (unknown) (unknown) History of (units (unk nown) date) incision and unknown) drainage (-2016) (unknown) (no (unknown) (unknown) History of prior (units (unknown) date) ablation treatment unknown) (-03/2017) (unknown) (no (unknown) (unknown) History of (units (unk nown) date) surgery unknown) (unknown) (no (unknown) (unknown) Hx of (units (unkno wn) date) cholecystectomy unknown) (unknown) (no (unknown) (unknown) Hx of hernia (units (u nknown) date) repair unknown) (unknown) (no (unknown) (unknown) Hx of sinus (units (un known) date) surgery unknown) (unknown) (no (unknown) (unknown) Hypertension (units (u nknown) date) unknown) (unknown) (no (unknown) (unknown) Ischemic (units (unkno wn) date) cardiomyopathy unknown) (unknown) (no (unknown) (unknown) Labs (units (unkno wn) date) unknown) (unknown) (no (unknown) (unknown) Labs: (units (unkno wn) date) unknown) (unknown) (no (unknown) (unknown) Medical History (units (unknown) date) (Reviewed 02/04/22 unknown) @ 10:10 by Yas Maravilla PA-C) (unknown) (no (unknown) (unknown) Mother (units (unknown) date) Stroke unknown) (unknown) (no (unknown) (unknown) Narcotic (units (unkno wn) date) dependence unknown) (unknown) (no (unknown) (unknown) Neck pain, (units (unk nown) date) chronic unknown) (unknown) (no (unknown) (unknown) Objective (units (unkn own) date) unknown) (unknown) (no (unknown) (unknown) Oxygen Delivery (units (unknown) date) Method Nasal unknown) Cannula (unknown) (no (unknown) (unknown) Oxygen Delivery (units (unknown) date) Method unknown) (unknown) (no (unknown) (unknown) Oxygen Delivery (units (unknown) date) Method Nasal unknown) Cannula (unknown) (no (unknown) (unknown) Oxygen Flow Rate (units (unknown) date) 2 unknown) (unknown) (no (unknown) (unknown) Oxygen Flow Rate (units (unknown) date) 2 unknown) (unknown) (no (unknown) (unknown) Oxygen Flow Rate (units (unknown) date) 2 unknown) (unknown) (no (unknown) (unknown) [facility] (units (unkno wn) date) unknown) (unknown) (no (unknown) (unknown) Patient: (units (unkno wn) date) Dominic Viveros unknown) MR#: M (unknown) (no (unknown) (unknown) Postoperative (units ( unknown) date) unknown) (unknown) (no (unknown) (unknown) Procedures: (units (un known) date) unknown) (unknown) (no (unknown) (unknown) Provider: (units (unkn own) date) Elizabet Layton P.A-C unknown) (unknown) (no (unknown) (unknown) Pulse Oximetry 93 (units (unknown) date) 93 unknown) (unknown) (no (unknown) (unknown) Pulse Oximetry 97 (units (unknown) date) unknown) (unknown) (no (unknown) (unknown) Pulse Rate 102 H (units (unknown) date) 97 H unknown) (unknown) (no (unknown) (unknown) Pulse Rate 87 (units ( unknown) date) unknown) (unknown) (no (unknown) (unknown) Respiratory Rate (units (unknown) date) 20 unknown) (unknown) (no (unknown) (unknown) Respiratory Rate (units (unknown) date) 20 20 unknown) (unknown) (no (unknown) (unknown) Result Diagrams: (units (unknown) date) unknown) (unknown) (no (unknown) (unknown) S/P CABG x 3 (units (u nknown) date) () unknown) (unknown) (no (unknown) (unknown) S/P cervical (units (u nknown) date) spinal fusion unknown) (unknown) (no (unknown) (unknown) S/P lumbar fusion (units (unknown) date) unknown) (unknown) (no (unknown) (unknown) Signed By: (units (unk nown) date) unknown) (unknown) (no (unknown) (unknown) Smoking Status: (units (unknown) date) Former smoker unknown) (unknown) (no (unknown) (unknown) Social History (units (unknown) date) (Reviewed 02/04/22 unknown) @ 10:10 by Yas Maravilla PA-C) (unknown) (no (unknown) (unknown) Subjective (units (unk nown) date) unknown) (unknown) (no (unknown) (unknown) Surgical History (units (unknown) date) (Reviewed 02/04/22 unknown) @ 10:10 by Yas Maravilla PA-C) (unknown) (no (unknown) (unknown) Temperature 97.0 (units (unknown) date) F L unknown) (unknown) (no (unknown) (unknown) Temperature 98.6 (units (unknown) date) F unknown) (unknown) (no (unknown) (unknown) Time Patient (units (u nknown) date) Seen: 08:00 unknown) (unknown) (no (unknown) (unknown) Ventricular (units (un known) date) bigeminy unknown) (unknown) (no (unknown) (unknown) Vital Signs (units (un known) date) unknown) (unknown) (no (unknown) (unknown) [Embedded Image (units (unknown) date) Not Available] unknown) (unknown) (no (unknown) (unknown) alcohol intake: (units (unknown) date) current unknown) (unknown) (no (unknown) (unknown) household (units (unkn own) date) members: spouse unknown) (unknown) (no (unknown) (unknown) p L2-3, L3-4 (units (u nknown) date) TLIF, L2-S1 PSF w. unknown) posterior instrumentation, L1-2 laminectomy - (unknown) (no (unknown) (unknown) robot Carlos Montemayor, (units (unknown) date) MD unknown) (unknown) (no (unknown) (unknown) substance use (units ( unknown) date) type: does not unknown) use Result panel 91 (unknown) (no (unknown) (unknown) (no value) (units (unk nown) date) unknown) (unknown) (no (unknown) (unknown) Date of Service: (units (unknown) date) 02/03/22 unknown) (unknown) (no (unknown) (unknown) (no value) (units (unk nown) date) unknown) (unknown) (no (unknown) (unknown) - (units (unkno wn) date) unknown) (unknown) (no (unknown) (unknown) 02/04/22 08:53 (units (unknown) date) unknown) (unknown) (no (unknown) (unknown) [facility] (units (unknown) date) [address] unknown) [place] [address] (unknown) (no (unknown) (unknown) Laboratory (units (unk nown) date) Results - last 24 unknown) hr (unknown) (no (unknown) (unknown) Operation Date: (units (unknown) date) 02/03/22 09:15 unknown) (unknown) (no (unknown) (unknown) Procedures (units (unk nown) date) unknown) (unknown) (no (unknown) (unknown) Progress Note (units ( unknown) date) unknown) (unknown) (no (unknown) (unknown) (no value) (units (unk nown) date) unknown) (unknown) (no (unknown) (unknown) 02/04/22 (units (unkno wn) date) unknown) (unknown) (no (unknown) (unknown) 08:53 (units (unkno wn) date) unknown) (unknown) (no (unknown) (unknown) 02/05/22 (units (unkno wn) date) unknown) (unknown) (no (unknown) (unknown) (past 8 hours): (units (unknown) date) unknown) (unknown) (no (unknown) (unknown) [id number] (units (unkn own) date) unknown) (unknown) (no (unknown) (unknown) 00:55 02/05/22 (units (unknown) date) unknown) (unknown) (no (unknown) (unknown) 02:22 02/05/22 (units (unknown) date) unknown) (unknown) (no (unknown) (unknown) 02:25 (units (unkno wn) date) unknown) (unknown) (no (unknown) (unknown) 03:10 (units (unkno wn) date) unknown) (unknown) (no (unknown) (unknown) 5/5 strength in (units (unknown) date) quadriceps, unknown) hamstrings, DF, PF, EHL bilaterallly. Noncompliant (unknown) (no (unknown) (unknown) 50% or less of (units (unknown) date) meals. When I ask unknown) him specifically about nausea, he tells me he (unknown) (no (unknown) (unknown) Achalasia (units (unkn own) date) unknown) (unknown) (no (unknown) (unknown) Actual Procedure (units (unknown) date) Side Surgeon unknown) (unknown) (no (unknown) (unknown) Age/Sex: 76 / M (units (unknown) date) unknown) (unknown) (no (unknown) (unknown) Anginal pain (units (u nknown) date) unknown) (unknown) (no (unknown) (unknown) Assessment + Plan (units (unknown) date) Post-op unknown) (unknown) (no (unknown) (unknown) Asthma (units (unkno wn) date) unknown) (unknown) (no (unknown) (unknown) Atrial (units (unkno wn) date) fibrillation unknown) (unknown) (no (unknown) (unknown) Blood Pressure (units (unknown) date) 118/64 unknown) (unknown) (no (unknown) (unknown) Blood Pressure (units (unknown) date) 95/52 L 135/76 unknown) (unknown) (no (unknown) (unknown) COPD (chronic (units ( unknown) date) obstructive unknown) pulmonary disease) (unknown) (no (unknown) (unknown) CXR yesterday was (units (unknown) date) negative for acute unknown) pulmonary processes. (unknown) (no (unknown) (unknown) Cervical spinal (units (unknown) date) stenosis unknown) (unknown) (no (unknown) (unknown) 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 (10/22/16) (unknown) (no (unknown) (unknown) Coronary artery (units (unknown) date) disease unknown) (unknown) (no (unknown) (unknown) : 1945 (units (unknown) date) Acct:[id number] unknown) (unknown) (no (unknown) (unknown) Date Patient (units (u nknown) date) Seen: 02/05/22 unknown) (unknown) (no (unknown) (unknown) Exam (units (unkno wn) date) unknown) (unknown) (no (unknown) (unknown) Exam Narrative: (units (unknown) date) unknown) (unknown) (no (unknown) (unknown) Family History (units (unknown) date) (Reviewed 02/04/22 unknown) @ 10:10 by Yas Maravilla PA-C) (unknown) (no (unknown) (unknown) Father (units (unkno wn) date) Hypertension unknown) (unknown) (no (unknown) (unknown) H/O arthroscopic (units (unknown) date) knee surgery unknown) (11/14/17) (unknown) (no (unknown) (unknown) Hct 35.4 L (units (un known) date) unknown) (unknown) (no (unknown) (unknown) Hgb 12.6 L (units (un known) date) unknown) (unknown) (no (unknown) (unknown) History of aortic (units (unknown) date) dissection unknown) () (unknown) (no (unknown) (unknown) History of (units (unk nown) date) arthroplasty of unknown) left knee (05/24/19) (unknown) (no (unknown) (unknown) History of (units (unk nown) date) arthroplasty of unknown) right knee (unknown) (no (unknown) (unknown) History of (units (unk nown) date) bilateral total unknown) hip arthroplasty (unknown) (no (unknown) (unknown) History of (units (unk nown) date) cardiac cath unknown) () (unknown) (no (unknown) (unknown) History of (units (unk nown) date) esophageal surgery unknown) (unknown) (no (unknown) (unknown) History of (units (unk nown) date) incision and unknown) drainage () (unknown) (no (unknown) (unknown) History of prior (units (unknown) date) ablation treatment unknown) () (unknown) (no (unknown) (unknown) History of (units (unk nown) date) surgery unknown) (unknown) (no (unknown) (unknown) Hx of (units (unkno wn) date) cholecystectomy unknown) (unknown) (no (unknown) (unknown) Hx of hernia (units (u nknown) date) repair unknown) (unknown) (no (unknown) (unknown) Hx of sinus (units (un known) date) surgery unknown) (unknown) (no (unknown) (unknown) Hypertension (units (u nknown) date) unknown) (unknown) (no (unknown) (unknown) Interval history: (units (unknown) date) unknown) (unknown) (no (unknown) (unknown) Ischemic (units (unkno wn) date) cardiomyopathy unknown) (unknown) (no (unknown) (unknown) Labs (units (unkno wn) date) unknown) (unknown) (no (unknown) (unknown) Labs: (units (unkno wn) date) unknown) (unknown) (no (unknown) (unknown) Medical History (units (unknown) date) (Reviewed 02/04/22 unknown) @ 10:10 by Yas Maravilla PA-C) (unknown) (no (unknown) (unknown) Mother (units (unknown) date) Stroke unknown) (unknown) (no (unknown) (unknown) Narcotic (units (unkno wn) date) dependence unknown) (unknown) (no (unknown) (unknown) Narrative (units (unkn own) date) unknown) (unknown) (no (unknown) (unknown) Neck pain, (units (unk nown) date) chronic unknown) (unknown) (no (unknown) (unknown) Objective (units (unkn own) date) unknown) (unknown) (no (unknown) (unknown) Oxygen Delivery (units (unknown) date) Method Nasal unknown) Cannula (unknown) (no (unknown) (unknown) Oxygen Delivery (units (unknown) date) Method unknown) (unknown) (no (unknown) (unknown) Oxygen Delivery (units (unknown) date) Method Nasal unknown) Cannula (unknown) (no (unknown) (unknown) Oxygen Flow Rate (units (unknown) date) 2 unknown) (unknown) (no (unknown) (unknown) Oxygen Flow Rate (units (unknown) date) 2 unknown) (unknown) (no (unknown) (unknown) Oxygen Flow Rate (units (unknown) date) 2 unknown) (unknown) (no (unknown) (unknown) PFSH (units (unkno wn) date) unknown) (unknown) (no (unknown) (unknown) Patient: (units (unkno wn) date) Dominic Viveros unknown) MR#: M (unknown) (no (unknown) (unknown) Postoperative (units ( unknown) date) unknown) (unknown) (no (unknown) (unknown) Procedures: (units (un known) date) unknown) (unknown) (no (unknown) (unknown) Provider: (units (unkn own) date) Elizabet Layton P.A-C unknown) (unknown) (no (unknown) (unknown) Pulse Oximetry 93 (units (unknown) date) 93 unknown) (unknown) (no (unknown) (unknown) Pulse Oximetry 97 (units (unknown) date) unknown) (unknown) (no (unknown) (unknown) Pulse Rate 102 H (units (unknown) date) 97 H unknown) (unknown) (no (unknown) (unknown) Pulse Rate 87 (units ( unknown) date) unknown) (unknown) (no (unknown) (unknown) Respiratory Rate (units (unknown) date) 20 unknown) (unknown) (no (unknown) (unknown) Respiratory Rate (units (unknown) date) 20 20 unknown) (unknown) (no (unknown) (unknown) Result Diagrams: (units (unknown) date) unknown) (unknown) (no (unknown) (unknown) S/P CABG x 3 (units (u nknown) date) () unknown) (unknown) (no (unknown) (unknown) S/P cervical (units (u nknown) date) spinal fusion unknown) (unknown) (no (unknown) (unknown) S/P lumbar fusion (units (unknown) date) unknown) (unknown) (no (unknown) (unknown) Signed By: (units (unk nown) date) unknown) (unknown) (no (unknown) (unknown) Sitting up in (units ( unknown) date) chair with his unknown) legs up, says he is more comfortable with them (unknown) (no (unknown) (unknown) Smoking Status: (units (unknown) date) Former smoker unknown) (unknown) (no (unknown) (unknown) Social History (units (unknown) date) (Reviewed 02/04/22 unknown) @ 10:10 by Yas Maravilla PA-C) (unknown) (no (unknown) (unknown) Subjective (units (unk nown) date) unknown) (unknown) (no (unknown) (unknown) Surgical History (units (unknown) date) (Reviewed 02/04/22 unknown) @ 10:10 by Yas Maravilla PA-C) (unknown) (no (unknown) (unknown) Temperature 97.0 (units (unknown) date) F L unknown) (unknown) (no (unknown) (unknown) Temperature 98.6 (units (unknown) date) F unknown) (unknown) (no (unknown) (unknown) Time Patient (units (u nknown) date) Seen: 08:00 unknown) (unknown) (no (unknown) (unknown) Ventricular (units (un known) date) bigeminy unknown) (unknown) (no (unknown) (unknown) Vital Signs (units (un known) date) unknown) (unknown) (no (unknown) (unknown) [Embedded Image (units (unknown) date) Not Available] unknown) (unknown) (no (unknown) (unknown) alcohol intake: (units (unknown) date) current unknown) (unknown) (no (unknown) (unknown) denies leg pain. (units (unknown) date) He says he is unknown) moving his bowels. His nurse says he is eating (unknown) (no (unknown) (unknown) down. Appears to (units (unknown) date) be comfortable but unknown) complains of 'massive pain; it feels like (unknown) (no (unknown) (unknown) go to the bathroom (units (unknown) date) on his own. unknown) Calves soft, compressible, nontender and without (unknown) (no (unknown) (unknown) household (units (unkn own) date) members: spouse unknown) (unknown) (no (unknown) (unknown) just feels awful. (units (unknown) date) He is somewhat unknown) more alert today than on my visit yesterday. (unknown) (no (unknown) (unknown) my guts are being (units (unknown) date) ripped out.' He unknown) is unable to be more specific than this. He (unknown) (no (unknown) (unknown) p L2-3, L3-4 (units (u nknown) date) TLIF, L2-S1 PSF w. unknown) posterior instrumentation, L1-2 laminectomy - (unknown) (no (unknown) (unknown) palpable cords or (units (unknown) date) masses. Low back unknown) gauze dressing CDI. (unknown) (no (unknown) (unknown) robot Carlos Montemayor, (units (unknown) date) MD unknown) (unknown) (no (unknown) (unknown) substance use (units ( unknown) date) type: does not unknown) use (unknown) (no (unknown) (unknown) with request to (units (unknown) date) flex hips, but per unknown) nursing he has been frequently getting up to Result panel 92 (unknown) (no (unknown) (unknown) (no value) (units (unk nown) date) unknown) (unknown) (no (unknown) (unknown) Assessment and (units (unknown) date) Plan narrative: unknown) (unknown) (no (unknown) (unknown) Date of Service: (units (unknown) date) 02/03/22 unknown) (unknown) (no (unknown) (unknown) (no value) (units (unk nown) date) unknown) (unknown) (no (unknown) (unknown) - (units (unkno wn) date) unknown) (unknown) (no (unknown) (unknown) 02/04/22 08:53 (units (unknown) date) unknown) (unknown) (no (unknown) (unknown) 02/05/22 1029 (units ( unknown) date) unknown) (unknown) (no (unknown) (unknown) [facility] (units (unknown) date) [address] unknown) [place] [address] (unknown) (no (unknown) (unknown) Laboratory (units (unk nown) date) Results - last unknown) hr (unknown) (no (unknown) (unknown) Operation Date: (units (unknown) date) 02/03/22 09:15 unknown) (unknown) (no (unknown) (unknown) Procedures (units (unk nown) date) unknown) (unknown) (no (unknown) (unknown) Progress Note (units ( unknown) date) unknown) (unknown) (no (unknown) (unknown) (no value) (units (unk nown) date) unknown) (unknown) (no (unknown) (unknown) 02/04/22 (units (unkno wn) date) unknown) (unknown) (no (unknown) (unknown) 08:53 (units (unkno wn) date) unknown) (unknown) (no (unknown) (unknown) 02/05/22 (units (unkno wn) date) unknown) (unknown) (no (unknown) (unknown) (1) S/P lumbar (units (unknown) date) fusion: unknown) (unknown) (no (unknown) (unknown) (2) Hypertension: (units (unknown) date) unknown) (unknown) (no (unknown) (unknown) (past 8 hours): (units (unknown) date) unknown) (unknown) (no (unknown) (unknown) [id number] (units (unkn own) date) unknown) (unknown) (no (unknown) (unknown) 00:55 02/05/22 (units (unknown) date) unknown) (unknown) (no (unknown) (unknown) 02:22 02/05/22 (units (unknown) date) unknown) (unknown) (no (unknown) (unknown) 02:25 (units (unkno wn) date) unknown) (unknown) (no (unknown) (unknown) 03:10 (units (unkno wn) date) unknown) (unknown) (no (unknown) (unknown) 5/5 strength in (units (unknown) date) quadriceps, unknown) hamstrings, DF, PF, EHL bilaterallly. Noncompliant (unknown) (no (unknown) (unknown) 50% or less of (units (unknown) date) meals. When I ask unknown) him specifically about nausea, he tells me he (unknown) (no (unknown) (unknown) Achalasia (units (unkn own) date) unknown) (unknown) (no (unknown) (unknown) Actual Procedure (units (unknown) date) Side Surgeon unknown) (unknown) (no (unknown) (unknown) Age/Sex: 76 / M (units (unknown) date) unknown) (unknown) (no (unknown) (unknown) Anginal pain (units (u nknown) date) unknown) (unknown) (no (unknown) (unknown) Assessment + Plan (units (unknown) date) Post-op unknown) (unknown) (no (unknown) (unknown) Assessment and (units (unknown) date) plan unknown) (unknown) (no (unknown) (unknown) Asthma (units (unkno wn) date) unknown) (unknown) (no (unknown) (unknown) Atrial (units (unkno wn) date) fibrillation unknown) (unknown) (no (unknown) (unknown) Blood Pressure (units (unknown) date) 118/64 unknown) (unknown) (no (unknown) (unknown) Blood Pressure (units (unknown) date) 95/52 L 135/76 unknown) (unknown) (no (unknown) (unknown) COPD (chronic (units ( unknown) date) obstructive unknown) pulmonary disease) (unknown) (no (unknown) (unknown) CXR yesterday was (units (unknown) date) negative for acute unknown) pulmonary processes. (unknown) (no (unknown) (unknown) Cervical spinal (units (unknown) date) stenosis unknown) (unknown) (no (unknown) (unknown) 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 (10/22/16) (unknown) (no (unknown) (unknown) Coronary artery (units (unknown) date) disease unknown) (unknown) (no (unknown) (unknown) : 1945 (units (unknown) date) Acct:[id number] unknown) (unknown) (no (unknown) (unknown) Date Patient (units (u nknown) date) Seen: 02/05/22 unknown) (unknown) (no (unknown) (unknown) Exam (units (unkno wn) date) unknown) (unknown) (no (unknown) (unknown) Exam Narrative: (units (unknown) date) unknown) (unknown) (no (unknown) (unknown) Family History (units (unknown) date) (Reviewed 02/04/22 unknown) @ 10:10 by Yas Maravilla PA-C) (unknown) (no (unknown) (unknown) Father (units (unkno wn) date) Hypertension unknown) (unknown) (no (unknown) (unknown) H/O arthroscopic (units (unknown) date) knee surgery unknown) (11/14/17) (unknown) (no (unknown) (unknown) Hct 35.4 L (units (un known) date) unknown) (unknown) (no (unknown) (unknown) Hgb 12.6 L (units (un known) date) unknown) (unknown) (no (unknown) (unknown) History of aortic (units (unknown) date) dissection unknown) () (unknown) (no (unknown) (unknown) History of (units (unk nown) date) arthroplasty of unknown) left knee (05/24/19) (unknown) (no (unknown) (unknown) History of (units (unk nown) date) arthroplasty of unknown) right knee (unknown) (no (unknown) (unknown) History of (units (unk nown) date) bilateral total unknown) hip arthroplasty (unknown) (no (unknown) (unknown) History of (units (unk nown) date) cardiac cath unknown) () (unknown) (no (unknown) (unknown) History of (units (unk nown) date) esophageal surgery unknown) (unknown) (no (unknown) (unknown) History of (units (unk nown) date) incision and unknown) drainage () (unknown) (no (unknown) (unknown) History of prior (units (unknown) date) ablation treatment unknown) () (unknown) (no (unknown) (unknown) History of (units (unk nown) date) surgery unknown) (unknown) (no (unknown) (unknown) Hx of (units (unkno wn) date) cholecystectomy unknown) (unknown) (no (unknown) (unknown) Hx of hernia (units (u nknown) date) repair unknown) (unknown) (no (unknown) (unknown) Hx of sinus (units (un known) date) surgery unknown) (unknown) (no (unknown) (unknown) Hypertension (units (u nknown) date) unknown) (unknown) (no (unknown) (unknown) Interval history: (units (unknown) date) unknown) (unknown) (no (unknown) (unknown) Ischemic (units (unkno wn) date) cardiomyopathy unknown) (unknown) (no (unknown) (unknown) Labs (units (unkno wn) date) unknown) (unknown) (no (unknown) (unknown) Labs: (units (unkno wn) date) unknown) (unknown) (no (unknown) (unknown) Medical History (units (unknown) date) (Reviewed 02/04/22 unknown) @ 10:10 by Yas Maravilla PA-C) (unknown) (no (unknown) (unknown) Mother (units (unknown) date) Stroke unknown) (unknown) (no (unknown) (unknown) Narcotic (units (unkno wn) date) dependence unknown) (unknown) (no (unknown) (unknown) Narrative (units (unkn own) date) unknown) (unknown) (no (unknown) (unknown) Neck pain, (units (unk nown) date) chronic unknown) (unknown) (no (unknown) (unknown) Objective (units (unkn own) date) unknown) (unknown) (no (unknown) (unknown) Oxygen Delivery (units (unknown) date) Method Nasal unknown) Cannula (unknown) (no (unknown) (unknown) Oxygen Delivery (units (unknown) date) Method unknown) (unknown) (no (unknown) (unknown) Oxygen Delivery (units (unknown) date) Method Nasal unknown) Cannula (unknown) (no (unknown) (unknown) Oxygen Flow Rate (units (unknown) date) 2 unknown) (unknown) (no (unknown) (unknown) Oxygen Flow Rate (units (unknown) date) 2 unknown) (unknown) (no (unknown) (unknown) Oxygen Flow Rate (units (unknown) date) 2 unknown) (unknown) (no (unknown) (unknown) PFSH (units (unkno wn) date) unknown) (unknown) (no (unknown) (unknown) Patient: (units (unkno wn) date) Dominic Viveros Gisele unknown) MR#: [id number] (unknown) (no (unknown) (unknown) Postoperative (units ( unknown) date) unknown) (unknown) (no (unknown) (unknown) Postoperative (units ( unknown) date) day: 2 unknown) (unknown) (no (unknown) (unknown) Procedures: (units (un known) date) unknown) (unknown) (no (unknown) (unknown) Provider: (units (unkn own) date) Elizabet Layton P.A-C unknown) (unknown) (no (unknown) (unknown) Pt has had (units (unk nown) date) multiple episodes unknown) of hypotension since admission; spoke w/ (unknown) (no (unknown) (unknown) Pts recovery (units (u nknown) date) following lumbar unknown) fusion has been confounded by somnolence, (unknown) (no (unknown) (unknown) Pulse Oximetry 93 (units (unknown) date) 93 unknown) (unknown) (no (unknown) (unknown) Pulse Oximetry 97 (units (unknown) date) unknown) (unknown) (no (unknown) (unknown) Pulse Rate 102 H (units (unknown) date) 97 H unknown) (unknown) (no (unknown) (unknown) Pulse Rate 87 (units ( unknown) date) unknown) (unknown) (no (unknown) (unknown) Respiratory Rate (units (unknown) date) 20 unknown) (unknown) (no (unknown) (unknown) Respiratory Rate (units (unknown) date) 20 20 unknown) (unknown) (no (unknown) (unknown) Result Diagrams: (units (unknown) date) unknown) (unknown) (no (unknown) (unknown) S/P CABG x 3 (units (u nknown) date) (-08/2007) unknown) (unknown) (no (unknown) (unknown) S/P cervical (units (u nknown) date) spinal fusion unknown) (unknown) (no (unknown) (unknown) S/P lumbar fusion (units (unknown) date) unknown) (unknown) (no (unknown) (unknown) Signed (units (unkno wn) date) By:<Electronically unknown) signed by Elizabet Layton> (unknown) (no (unknown) (unknown) Sitting up in (units ( unknown) date) chair with his unknown) legs up, says he is more comfortable with them (unknown) (no (unknown) (unknown) Smoking Status: (units (unknown) date) Former smoker unknown) (unknown) (no (unknown) (unknown) Social History (units (unknown) date) (Reviewed 02/04/22 unknown) @ 10:10 by Yas Maravilla PA-C) (unknown) (no (unknown) (unknown) Subjective (units (unk nown) date) unknown) (unknown) (no (unknown) (unknown) Surgical History (units (unknown) date) (Updated 02/05/22 unknown) @ 10:23 by Elizabet Layton PA-C) (unknown) (no (unknown) (unknown) Temperature 97.0 (units (unknown) date) F L unknown) (unknown) (no (unknown) (unknown) Temperature 98.6 (units (unknown) date) F unknown) (unknown) (no (unknown) (unknown) Time Patient (units (u nknown) date) Seen: 08:00 unknown) (unknown) (no (unknown) (unknown) Ventricular (units (un known) date) bigeminy unknown) (unknown) (no (unknown) (unknown) Vital Signs (units (un known) date) unknown) (unknown) (no (unknown) (unknown) [Embedded Image (units (unknown) date) Not Available] unknown) (unknown) (no (unknown) (unknown) alcohol intake: (units (unknown) date) current unknown) (unknown) (no (unknown) (unknown) confusion, and (units (unknown) date) agitation. I have unknown) asked the hospitalist service to see this pt (unknown) (no (unknown) (unknown) denies leg pain. (units (unknown) date) He says he is unknown) moving his bowels. His nurse says he is eating (unknown) (no (unknown) (unknown) down. Appears to (units (unknown) date) be comfortable but unknown) complains of 'massive pain; it feels like (unknown) (no (unknown) (unknown) go to the bathroom (units (unknown) date) on his own. unknown) Calves soft, compressible, nontender and without (unknown) (no (unknown) (unknown) hospitalist (units (un known) date) service today and unknown) asked them to evaluate pt for help w/ HTN meds as (unknown) (no (unknown) (unknown) household (units (unkn own) date) members: spouse unknown) (unknown) (no (unknown) (unknown) just feels awful. (units (unknown) date) He is somewhat unknown) more alert today than on my visit yesterday. (unknown) (no (unknown) (unknown) mentation, this (units (unknown) date) patient will need unknown) senior living for physical rehabilitation. (unknown) (no (unknown) (unknown) my guts are being (units (unknown) date) ripped out.' He unknown) is unable to be more specific than this. He (unknown) (no (unknown) (unknown) p L2-3, L3-4 (units (u nknown) date) TLIF, L2-S1 PSF w. unknown) posterior instrumentation, L1-2 laminectomy - (unknown) (no (unknown) (unknown) palpable cords or (units (unknown) date) masses. Low back unknown) gauze dressing CDI. (unknown) (no (unknown) (unknown) robot Carlos Montemayor, (units (unknown) date) unknown) (unknown) (no (unknown) (unknown) substance use (units ( unknown) date) type: does not unknown) use (unknown) (no (unknown) (unknown) to evaluate and (units (unknown) date) treat for possible unknown) ETOH withdrawal. Even with more stable (unknown) (no (unknown) (unknown) well as possible (units (unknown) date) ETOH withdrawal. unknown) (unknown) (no (unknown) (unknown) with request to (units (unknown) date) flex hips, but per unknown) nursing he has been frequently getting up to Result panel 93 (unknown) (no date) (unknown) (unknown) 1.4 mmol/L (unkn own) Result panel 94 (unknown) (no date) (unknown) (unknown) > 60 mL/min (unkn own) (unknown) (no date) (unknown) (unknown) 0.73 mg/dL (unkn own) (unknown) (no date) (unknown) (unknown) 0.8 mg/dL (unkn own) (unknown) (no date) (unknown) (unknown) 1.3 (units unknown) (unknown) (unknown) (no date) (unknown) (unknown) 101 mmol/L (unkn own) (unknown) (no date) (unknown) (unknown) 137 mmol/L (unkn own) (unknown) (no date) (unknown) (unknown) 14 mg/dL (unkn own) (unknown) (no date) (unknown) (unknown) 141 mg/dL (unkn own) (unknown) (no date) (unknown) (unknown) 19.2 (units unknown) (unknown) (unknown) (no date) (unknown) (unknown) 2.8 g/dL (unkn own) (unknown) (no date) (unknown) (unknown) 3.6 g/dL (unkn own) (unknown) (no date) (unknown) (unknown) 3.8 mmol/L (unkn own) (unknown) (no date) (unknown) (unknown) 31 IU/L (unkn own) (unknown) (no date) (unknown) (unknown) 33 mmol/L (unkn own) (unknown) (no date) (unknown) (unknown) 47 U/L (unkn own) (unknown) (no date) (unknown) (unknown) 6.4 g/dL (unkn own) (unknown) (no date) (unknown) (unknown) 8.1 mg/dL (unkn own) (unknown) (no date) (unknown) (unknown) 90 IU/L (unkn own) Result panel 95 (unknown) (no date) (unknown) (unknown) 21 (units unknown) (unknown) (unknown) (no date) (unknown) (unknown) 32 mmol/L (unkn own) (unknown) (no date) (unknown) (unknown) 33 mmol/L (unkn own) (unknown) (no date) (unknown) (unknown) 52.6 mmHg (unkn own) (unknown) (no date) (unknown) (unknown) 55 mmHg (unkn own) (unknown) (no date) (unknown) (unknown) 7.0 mmol/L (unkn own) (unknown) (no date) (unknown) (unknown) 7.39 (units unknown) (unknown) (unknown) (no date) (unknown) (unknown) 87 % (unkn own) Result panel 96 (unknown) (no date) (unknown) (unknown) 0.6 % (unkn own) (unknown) (no date) (unknown) (unknown) 1.5 % (unkn own) (unknown) (no date) (unknown) (unknown) 100 /uL (unkn own) (unknown) (no date) (unknown) (unknown) 100 /uL (unkn own) (unknown) (no date) (unknown) (unknown) 11.1 g/dL (unkn own) (unknown) (no date) (unknown) (unknown) 1200 /uL (unkn own) (unknown) (no date) (unknown) (unknown) 13.2 % (unkn own) (unknown) (no date) (unknown) (unknown) 13.8 % (unkn own) (unknown) (no date) (unknown) (unknown) 1300 /uL (unkn own) (unknown) (no date) (unknown) (unknown) 15.8 % (unkn own) (unknown) (no date) (unknown) (unknown) 221 X10 3/uL (unkn own) (unknown) (no date) (unknown) (unknown) 3.40 X10 6/uL (unkn own) (unknown) (no date) (unknown) (unknown) 31.5 % (unkn own) (unknown) (no date) (unknown) (unknown) 32.7 PG (unkn own) (unknown) (no date) (unknown) (unknown) 35.2 % (unkn own) (unknown) (no date) (unknown) (unknown) 5700 /uL (unkn own) (unknown) (no date) (unknown) (unknown) 68.3 % (unkn own) (unknown) (no date) (unknown) (unknown) 8.4 X10 3/uL (unkn own) (unknown) (no date) (unknown) (unknown) 92.8 fL (unkn own) Result panel 97 (unknown) (no (unknown) (unknown) (no value) (units (unk nown) date) unknown) (unknown) (no (unknown) (unknown) [address] [place] [address] (units (unknown) date) unknown) (unknown) (no (unknown) (unknown) [place], [place] (units ( unknown) date) [address] unknown) (unknown) (no (unknown) (unknown) CT Scan Report (units (unknown) date) unknown) (unknown) (no (unknown) (unknown) [facility] (units (unknown) date) unknown) (unknown) (no (unknown) (unknown) Signed (units (unkno wn) date) unknown) (unknown) (no (unknown) (unknown) (no value) (units (unk nown) date) unknown) (unknown) (no (unknown) (unknown) 02/05/22 (units (unkno wn) date) unknown) (unknown) (no (unknown) (unknown) 2. Age-related (units (unknown) date) senescent changes unknown) and sequela of chronic small vessel ischemic (unknown) (no (unknown) (unknown) Approved by: (units (u nknown) date) Rickie Billy M.D. on unknown) 02/05/2022 at 18:16 (unknown) (no (unknown) (unknown) Brain: No (units (unk nown) date) intracranial unknown) bleeds or masses. There is cerebral volume loss for (unknown) (no (unknown) (unknown) COMPARISON: (units (un known) date) [facility], unknown) CT, CT HEAD/BRAIN WO CON, 12/07/2021, 20:47. (unknown) (no (unknown) (unknown) CSF spaces: (units (un known) date) Basal cisterns are unknown) patent. No extra-axial fluid collections. The (unknown) (no (unknown) (unknown) Dictated by: (units (u nknown) date) Rickie Billy M.D. on unknown) 02/05/2022 at 18:13 (unknown) (no (unknown) (unknown) FINDINGS: (units (unkn own) date) unknown) (unknown) (no (unknown) (unknown) Hospital, CT, CT (units (unknown) date) HEAD/BRAIN WO CON, unknown) 04/16/2021, 12:21. (unknown) (no (unknown) (unknown) IMPRESSION: 1. (units (unknown) date) CT head without unknown) acute intracranial abnormalities or acute (unknown) (no (unknown) (unknown) INDICATIONS: (units (u nknown) date) confusion unknown) (unknown) (no (unknown) (unknown) Image quality: (units (unknown) date) Excellent. unknown) (unknown) (no (unknown) (unknown) Noncontrast 4.5 (units (unknown) date) mm thick angled unknown) axial sections acquired from the foramen magnum (unknown) (no (unknown) (unknown) Sinuses: Stable (units (unknown) date) remodeling of the unknown) left maxillary sinus compatible with sequela (unknown) (no (unknown) (unknown) Skull and face: (units (unknown) date) Calvarium and unknown) visualized facial bones appear intact, without (unknown) (no (unknown) (unknown) TECHNIQUE: (units (unk nown) date) unknown) (unknown) (no (unknown) (unknown) artery (units (unkno wn) date) atherosclerosis. 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 (unknown) (no (unknown) (unknown) chronic (units (unkno wn) date) sinusitis. unknown) Visualized sinuses and mastoids are clear. (unknown) (no (unknown) (unknown) fractures. (units (unk nown) date) unknown) (unknown) (no (unknown) (unknown) lesions. (units (unkno wn) date) unknown) (unknown) (no (unknown) (unknown) matter chronic (units (unknown) date) small vessel unknown) ischemic changes. There is intracranial internal (unknown) (no (unknown) (unknown) resultant (units (unkn own) date) ventricular and unknown) sulcal prominence. There are periventricular and (unknown) (no (unknown) (unknown) size. (units (unkno wn) date) unknown) (unknown) (no (unknown) (unknown) ventricles are (units (unknown) date) symmetric in size unknown) and shape. (unknown) (no (unknown) (unknown) vertex, with (units (u nknown) date) coronal and unknown) sagittal reformats. For radiation dose reduction, the (unknown) (no (unknown) (unknown) was used: (units (unkn own) date) automated exposure unknown) control, adjustment of mA and/or kV according to (unknown) (no (unknown) (unknown) Accession Number: (units (unknown) date) [id number] unknown) (unknown) (no (unknown) (unknown) Age/Sex: 76 / M (units (unknown) date) Date of Service: unknown) (unknown) (no (unknown) (unknown) : 1945 (units (unknown) date) Acct:[id number] unknown) (unknown) (no (unknown) (unknown) [place] (units (unkno wn) date) unknown) (unknown) (no (unknown) (unknown) Loc: 224-1 (units (unknown) date) unknown) (unknown) (no (unknown) (unknown) [id number] (units (unk nown) date) unknown) (unknown) (no (unknown) (unknown) Ordering (units (unkno wn) date) Provider: unknown) Evan Rangel MD (unknown) (no (unknown) (unknown) PROCEDURE: CT (units (unknown) date) HEAD/BRAIN WO CON unknown) (unknown) (no (unknown) (unknown) Patient: (units (unkno wn) date) Dominic Viveros unknown) MR#: (unknown) (no (unknown) (unknown) Procedure: CT (units ( unknown) date) head/brain wo con unknown) (unknown) (no (unknown) (unknown) age, with (units (unkn own) date) unknown) (unknown) (no (unknown) (unknown) calvarial (units (unkn own) date) unknown) (unknown) (no (unknown) (unknown) carotid (units (unkno wn) date) unknown) (unknown) (no (unknown) (unknown) deep white (units (unk nown) date) unknown) (unknown) (no (unknown) (unknown) disease. (units (unkno wn) date) unknown) (unknown) (no (unknown) (unknown) following (units (unkn own) date) unknown) (unknown) (no (unknown) (unknown) of (units (unkno wn) date) unknown) (unknown) (no (unknown) (unknown) patient (units (unkno wn) date) unknown) (unknown) (no (unknown) (unknown) suspicious (units (unk nown) date) unknown) (unknown) (no (unknown) (unknown) to the (units (unkno wn) date) unknown) Result panel 98 (unknown) (no (unknown) (unknown) (no value) (units (unk nown) date) unknown) (unknown) (no (unknown) (unknown) (no value) (units (unk nown) date) unknown) (unknown) (no (unknown) (unknown) Date of Service: (units (unknown) date) 02/03/22 unknown) (unknown) (no (unknown) (unknown) (no value) (units (unk nown) date) unknown) (unknown) (no (unknown) (unknown) 'He gets (units (unkno wn) date) unknown) (unknown) (no (unknown) (unknown) - (units (unkno wn) date) unknown) (unknown) (no (unknown) (unknown) 02/05/22 15:01 (units (unknown) date) unknown) (unknown) (no (unknown) (unknown) ANXIETY, (units (unkno wn) date) unknown) (unknown) (no (unknown) (unknown) Allergies (units (unkn own) date) unknown) (unknown) (no (unknown) (unknown) DIZZINESS (units (unkn own) date) unknown) (unknown) (no (unknown) (unknown) EXPOSURE (units (unkno wn) date) unknown) (unknown) (no (unknown) (unknown) History + (units (unkn own) date) Physical Report unknown) (unknown) (no (unknown) (unknown) Home Medications (units (unknown) date) unknown) (unknown) (no (unknown) (unknown) [facility] (units (unknown) date) [address] [place] [address] unknown) [place] [address] (unknown) (no (unknown) (unknown) JERKING, (units (unkno wn) date) unknown) (unknown) (no (unknown) (unknown) Laboratory (units (unk nown) date) Results - last 24 unknown) hr (unknown) (no (unknown) (unknown) MINUTES (units (unkno wn) date) unknown) (unknown) (no (unknown) (unknown) NAUSEA W/I (units (unk nown) date) unknown) (unknown) (no (unknown) (unknown) W/EXTENDED (units (unk nown) date) unknown) (unknown) (no (unknown) (unknown) mind' (units (unkno wn) date) unknown) (unknown) (no (unknown) (unknown) out of his (units (unk nown) date) unknown) (unknown) (no (unknown) (unknown) (no value) (units (unk nown) date) unknown) (unknown) (no (unknown) (unknown) 02/05/22 (units (unkno wn) date) unknown) (unknown) (no (unknown) (unknown) 02/05/22 02/05/22 (units (unknown) date) 02/05/22 unknown) (unknown) (no (unknown) (unknown) 15:01 15:01 15:01 (units (unknown) date) unknown) (unknown) (no (unknown) (unknown) 15:49 (units (unkno wn) date) unknown) (unknown) (no (unknown) (unknown) 02/05/22 (units (unkno wn) date) unknown) (unknown) (no (unknown) (unknown) Medication (units (unk nown) date) Instructions unknown) Recorded Confirmed Type (unknown) (no (unknown) (unknown) tabs (units (unkno wn) date) unknown) (unknown) (no (unknown) (unknown) (Athenol) (units (unkn own) date) unknown) (unknown) (no (unknown) (unknown) (Xopenex HFA) #15 (units (unknown) date) grams unknown) (unknown) (no (unknown) (unknown) (past 8 hours): (units (unknown) date) unknown) (unknown) (no (unknown) (unknown) [id number] (units (unkn own) date) unknown) (unknown) (no (unknown) (unknown) 02/03/22 History (units (unknown) date) unknown) (unknown) (no (unknown) (unknown) 08:21 (units (unkno wn) date) unknown) (unknown) (no (unknown) (unknown) 12:04 02/05/22 (units (unknown) date) unknown) (unknown) (no (unknown) (unknown) 12:08 02/05/22 (units (unknown) date) unknown) (unknown) (no (unknown) (unknown) 12:46 (units (unkno wn) date) unknown) (unknown) (no (unknown) (unknown) 14 systems (units (unk nown) date) reviewed and unknown) negative aside from what is noted in HPI (unknown) (no (unknown) (unknown) 14:35 02/05/22 (units (unknown) date) unknown) (unknown) (no (unknown) (unknown) 15:54 02/05/22 (units (unknown) date) unknown) (unknown) (no (unknown) (unknown) 15:57 (units (unkno wn) date) unknown) (unknown) (no (unknown) (unknown) ABG Base Excess (units (unknown) date) unknown) (unknown) (no (unknown) (unknown) ABG Base Excess (units (unknown) date) 7.0 H unknown) (unknown) (no (unknown) (unknown) ABG HCO3 (units (unkno wn) date) unknown) (unknown) (no (unknown) (unknown) ABG HCO3 32 H (units (unknown) date) unknown) (unknown) (no (unknown) (unknown) ABG O2 Saturation (units (unknown) date) unknown) (unknown) (no (unknown) (unknown) ABG O2 Saturation (units (unknown) date) 87 L unknown) (unknown) (no (unknown) (unknown) ABG Total CO2 (units ( unknown) date) unknown) (unknown) (no (unknown) (unknown) ABG Total CO2 33 (units (unknown) date) H unknown) (unknown) (no (unknown) (unknown) ABG pCO2 (units (unkno wn) date) unknown) (unknown) (no (unknown) (unknown) ABG pCO2 52.6 H (units (unknown) date) unknown) (unknown) (no (unknown) (unknown) ABG pH (units (unkno wn) date) unknown) (unknown) (no (unknown) (unknown) ABG pH 7.39 (units (u nknown) date) unknown) (unknown) (no (unknown) (unknown) ABG pO2 (units (unkno wn) date) unknown) (unknown) (no (unknown) (unknown) ABG pO2 55 L (units ( unknown) date) unknown) (unknown) (no (unknown) (unknown) ALT (units (unkno wn) date) unknown) (unknown) (no (unknown) (unknown) ALT 31 (units (unkno wn) date) unknown) (unknown) (no (unknown) (unknown) ANTIBIOTICS)] (units ( unknown) date) unknown) (unknown) (no (unknown) (unknown) AST (units (unkno wn) date) unknown) (unknown) (no (unknown) (unknown) AST 90 H (units (unk nown) date) unknown) (unknown) (no (unknown) (unknown) Achalasia (units (unkn own) date) unknown) (unknown) (no (unknown) (unknown) Age/Sex: 76 / M (units (unknown) date) unknown) (unknown) (no (unknown) (unknown) Albumin (units (unkno wn) date) unknown) (unknown) (no (unknown) (unknown) Albumin 3.6 (units ( unknown) date) unknown) (unknown) (no (unknown) (unknown) Albumin/Globulin (units (unknown) date) Ratio unknown) (unknown) (no (unknown) (unknown) Albumin/Globulin (units (unknown) date) Ratio 1.3 unknown) (unknown) (no (unknown) (unknown) Alkaline (units (unkno wn) date) Phosphatase unknown) (unknown) (no (unknown) (unknown) Alkaline (units (unkno wn) date) Phosphatase 47 unknown) (unknown) (no (unknown) (unknown) Allergy/AdvReac (units (unknown) date) Type Severity unknown) Reaction Status Date / Time (unknown) (no (unknown) (unknown) Anginal pain (units (u nknown) date) unknown) (unknown) (no (unknown) (unknown) Antibiotics) (units (u nknown) date) unknown) (unknown) (no (unknown) (unknown) Assessment + Plan (units (unknown) date) unknown) (unknown) (no (unknown) (unknown) Asthma (units (unkno wn) date) unknown) (unknown) (no (unknown) (unknown) Atrial (units (unkno wn) date) fibrillation unknown) (unknown) (no (unknown) (unknown) BUN (units (unkno wn) date) unknown) (unknown) (no (unknown) (unknown) BUN 14 (units (unkno wn) date) unknown) (unknown) (no (unknown) (unknown) BUN/Creatinine (units (unknown) date) Ratio unknown) (unknown) (no (unknown) (unknown) BUN/Creatinine (units (unknown) date) Ratio 19.2 unknown) (unknown) (no (unknown) (unknown) Baso # (Auto) (units ( unknown) date) unknown) (unknown) (no (unknown) (unknown) Baso # (Auto) (units ( unknown) date) 100 unknown) (unknown) (no (unknown) (unknown) Baso % (Auto) (units ( unknown) date) unknown) (unknown) (no (unknown) (unknown) Baso % (Auto) (units ( unknown) date) 0.6 unknown) (unknown) (no (unknown) (unknown) Been Physically (units (unknown) date) Hurt or No unknown) (unknown) (no (unknown) (unknown) Blood Pressure (units (unknown) date) 121/93 H 121/98 H unknown) (unknown) (no (unknown) (unknown) Blood Pressure (units (unknown) date) 98/60 unknown) (unknown) (no (unknown) (unknown) COPD (chronic (units ( unknown) date) obstructive unknown) pulmonary disease) (unknown) (no (unknown) (unknown) CV: regular rate (units (unknown) date) and rhythm, no unknown) murmurs (unknown) (no (unknown) (unknown) Calcium (units (unkno wn) date) unknown) (unknown) (no (unknown) (unknown) Calcium 8.1 L (units (unknown) date) unknown) (unknown) (no (unknown) (unknown) Carbon Dioxide (units (unknown) date) unknown) (unknown) (no (unknown) (unknown) Carbon Dioxide (units (unknown) date) 33 H unknown) (unknown) (no (unknown) (unknown) Cervical spinal (units (unknown) date) stenosis unknown) (unknown) (no (unknown) (unknown) Chief complaint: (units (unknown) date) INPT unknown) (unknown) (no (unknown) (unknown) Chloride (units (unkno wn) date) unknown) (unknown) (no (unknown) (unknown) Chloride 101 (units (unknown) date) unknown) (unknown) (no (unknown) (unknown) 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 (10/22/16) (unknown) (no (unknown) (unknown) Coronary artery (units (unknown) date) disease unknown) (unknown) (no (unknown) (unknown) Creatinine (units (unk nown) date) unknown) (unknown) (no (unknown) (unknown) Creatinine 0.73 (units (unknown) date) unknown) (unknown) (no (unknown) (unknown) Critical Care (units ( unknown) date) time: unknown) (unknown) (no (unknown) (unknown) : 1945 (units (unknown) date) Acct:[id number] unknown) (unknown) (no (unknown) (unknown) Date Patient (units (u nknown) date) Seen: 02/05/22 unknown) (unknown) (no (unknown) (unknown) Environment (units (un known) date) unknown) (unknown) (no (unknown) (unknown) Eos # (Auto) (units (u nknown) date) unknown) (unknown) (no (unknown) (unknown) Eos # (Auto) 100 (units (unknown) date) unknown) (unknown) (no (unknown) (unknown) Eos % (Auto) (units (u nknown) date) unknown) (unknown) (no (unknown) (unknown) Eos % (Auto) 1.5 (units (unknown) date) L unknown) (unknown) (no (unknown) (unknown) Estimated GFR (units ( unknown) date) unknown) (unknown) (no (unknown) (unknown) Estimated GFR > (units (unknown) date) 60 unknown) (unknown) (no (unknown) (unknown) Exam (units (unkno wn) date) unknown) (unknown) (no (unknown) (unknown) Exam Narrative: (units (unknown) date) unknown) (unknown) (no (unknown) (unknown) Family + Social (units (unknown) date) History unknown) (unknown) (no (unknown) (unknown) Family History (units (unknown) date) (Reviewed 02/05/22 unknown) @ 17:55 by Evan Rangel MD) (unknown) (no (unknown) (unknown) Father (units (unkno wn) date) Hypertension unknown) (unknown) (no (unknown) (unknown) Feels Safe in (units ( unknown) date) Current Yes unknown) (unknown) (no (unknown) (unknown) FiO2 (units (unkno wn) date) unknown) (unknown) (no (unknown) (unknown) FiO2 21 (units (unkno wn) date) unknown) (unknown) (no (unknown) (unknown) GEN: no acute (units ( unknown) date) distress, unknown) lethargic (unknown) (no (unknown) (unknown) Globulin (units (unkno wn) date) unknown) (unknown) (no (unknown) (unknown) Globulin 2.8 (units (unknown) date) unknown) (unknown) (no (unknown) (unknown) Glucose (units (unkno wn) date) unknown) (unknown) (no (unknown) (unknown) Glucose 141 H (units (unknown) date) unknown) (unknown) (no (unknown) (unknown) H/O arthroscopic (units (unknown) date) knee surgery unknown) (11/14/17) (unknown) (no (unknown) (unknown) HEENT: moist (units (u nknown) date) mucous membranes unknown) (unknown) (no (unknown) (unknown) Hct (units (unkno wn) date) unknown) (unknown) (no (unknown) (unknown) Hct 31.5 L (units (un known) date) unknown) (unknown) (no (unknown) (unknown) Hgb (units (unkno wn) date) unknown) (unknown) (no (unknown) (unknown) Hgb 11.1 L (units (un known) date) unknown) (unknown) (no (unknown) (unknown) History of (units (unk nown) date) Present Illness unknown) (unknown) (no (unknown) (unknown) History of aortic (units (unknown) date) dissection unknown) () (unknown) (no (unknown) (unknown) History of (units (unk nown) date) arthroplasty of unknown) left knee (05/24/19) (unknown) (no (unknown) (unknown) History of (units (unk nown) date) arthroplasty of unknown) right knee (unknown) (no (unknown) (unknown) History of (units (unk nown) date) bilateral total unknown) hip arthroplasty (unknown) (no (unknown) (unknown) History of (units (unk nown) date) cardiac cath unknown) () (unknown) (no (unknown) (unknown) History of (units (unk nown) date) esophageal surgery unknown) (unknown) (no (unknown) (unknown) History of (units (unk nown) date) incision and unknown) drainage () (unknown) (no (unknown) (unknown) History of prior (units (unknown) date) ablation treatment unknown) () (unknown) (no (unknown) (unknown) History of (units (unk nown) date) surgery unknown) (unknown) (no (unknown) (unknown) Home Medications (units (unknown) date) and Allergies unknown) (unknown) (no (unknown) (unknown) Hx of (units (unkno wn) date) cholecystectomy unknown) (unknown) (no (unknown) (unknown) Hx of hernia (units (u nknown) date) repair unknown) (unknown) (no (unknown) (unknown) Hx of sinus (units (un known) date) surgery unknown) (unknown) (no (unknown) (unknown) Hypertension (units (u nknown) date) unknown) (unknown) (no (unknown) (unknown) I spent a total (units (unknown) date) of [] minutes of unknown) critical care time on this patient's care (unknown) (no (unknown) (unknown) INHIBITOR] (units (unk nown) date) unknown) (unknown) (no (unknown) (unknown) Inhibitor (units (unkn own) date) MUSCLES unknown) (unknown) (no (unknown) (unknown) Ischemic (units (unkno wn) date) cardiomyopathy unknown) (unknown) (no (unknown) (unknown) Labs (units (unkno wn) date) unknown) (unknown) (no (unknown) (unknown) Labs: (units (unkno wn) date) unknown) (unknown) (no (unknown) (unknown) Lactate 1.4 (units (unknown) date) unknown) (unknown) (no (unknown) (unknown) Lactate (units (unkno wn) date) unknown) (unknown) (no (unknown) (unknown) Lymph # (Auto) (units (unknown) date) unknown) (unknown) (no (unknown) (unknown) Lymph # (Auto) (units (unknown) date) 1200 unknown) (unknown) (no (unknown) (unknown) Lymph % (Auto) (units (unknown) date) unknown) (unknown) (no (unknown) (unknown) Lymph % (Auto) (units (unknown) date) 13.8 L unknown) (unknown) (no (unknown) (unknown) MCH (units (unkno wn) date) unknown) (unknown) (no (unknown) (unknown) MCH 32.7 (units (unkn own) date) unknown) (unknown) (no (unknown) (unknown) MCHC (units (unkno wn) date) unknown) (unknown) (no (unknown) (unknown) MCHC 35.2 (units (unk nown) date) unknown) (unknown) (no (unknown) (unknown) MCV (units (unkno wn) date) unknown) (unknown) (no (unknown) (unknown) MCV 92.8 (units (unkn own) date) unknown) (unknown) (no (unknown) (unknown) Medical History (units (unknown) date) (Reviewed 02/05/22 unknown) @ 17:55 by Evan Rangel MD) (unknown) (no (unknown) (unknown) Meds (units (unkno wn) date) unknown) (unknown) (no (unknown) (unknown) [place] # (Auto) (units ( unknown) date) unknown) (unknown) (no (unknown) (unknown) [place] # (Auto) (units ( unknown) date) 1300 H unknown) (unknown) (no (unknown) (unknown) [place] % (Auto) (units ( unknown) date) unknown) (unknown) (no (unknown) (unknown) [place] % (Auto) (units ( unknown) date) 15.8 H unknown) (unknown) (no (unknown) (unknown) Mother (units (unknown) date) Stroke unknown) (unknown) (no (unknown) (unknown) Mr. Viveros is a (units (unknown) date) 76M with PMH afib, unknown) COPD, CAD, prior aortic disection s/p graft, (unknown) (no (unknown) (unknown) Narcotic (units (unkno wn) date) dependence unknown) (unknown) (no (unknown) (unknown) Narrative (units (unkn own) date) unknown) (unknown) (no (unknown) (unknown) Narrative: (units (unk nown) date) unknown) (unknown) (no (unknown) (unknown) Neck pain, (units (unk nown) date) chronic unknown) (unknown) (no (unknown) (unknown) Neut # (Auto) (units ( unknown) date) unknown) (unknown) (no (unknown) (unknown) Neut # (Auto) (units ( unknown) date) 5700 unknown) (unknown) (no (unknown) (unknown) Neut % (Auto) (units ( unknown) date) unknown) (unknown) (no (unknown) (unknown) Neut % (Auto) (units ( unknown) date) 68.3 unknown) (unknown) (no (unknown) (unknown) Objective (units (unkn own) date) unknown) (unknown) (no (unknown) (unknown) Oxygen Delivery (units (unknown) date) Method unknown) (unknown) (no (unknown) (unknown) Oxygen Delivery (units (unknown) date) Method Nasal unknown) Cannula (unknown) (no (unknown) (unknown) Oxygen Delivery (units (unknown) date) Method Room Air unknown) Nasal Cannula (unknown) (no (unknown) (unknown) Oxygen Flow Rate (units (unknown) date) 2 unknown) (unknown) (no (unknown) (unknown) Oxygen Flow Rate (units (unknown) date) 0 unknown) (unknown) (no (unknown) (unknown) Oxygen Flow Rate (units (unknown) date) 1 2 unknown) (unknown) (no (unknown) (unknown) PULM: poor air (units (unknown) date) movement, unknown) bilaterally (unknown) (no (unknown) (unknown) Patient History (units (unknown) date) unknown) (unknown) (no (unknown) (unknown) Patient: (units (unkno wn) date) Dominic Viveros unknown) MR#: M (unknown) (no (unknown) (unknown) Plt Count (units (unkn own) date) unknown) (unknown) (no (unknown) (unknown) Plt Count 221 (units (unknown) date) unknown) (unknown) (no (unknown) (unknown) Potassium (units (unkn own) date) unknown) (unknown) (no (unknown) (unknown) Potassium 3.8 (units (unknown) date) unknown) (unknown) (no (unknown) (unknown) Prior Living (units (u nknown) date) Arrangements unknown) House (unknown) (no (unknown) (unknown) Provider: (units (unkn own) date) Evan Rangel MD unknown) (unknown) (no (unknown) (unknown) Pulse Oximetry 92 (units (unknown) date) unknown) (unknown) (no (unknown) (unknown) Pulse Oximetry 97 (units (unknown) date) 87 L 94 unknown) (unknown) (no (unknown) (unknown) Pulse Rate 105 H (units (unknown) date) unknown) (unknown) (no (unknown) (unknown) Pulse Rate 87 87 (units (unknown) date) unknown) (unknown) (no (unknown) (unknown) RBC (units (unkno wn) date) unknown) (unknown) (no (unknown) (unknown) RBC 3.40 L (units (un known) date) unknown) (unknown) (no (unknown) (unknown) RDW (units (unkno wn) date) unknown) (unknown) (no (unknown) (unknown) RDW 13.2 (units (unkn own) date) unknown) (unknown) (no (unknown) (unknown) Respiratory Rate (units (unknown) date) 14 unknown) (unknown) (no (unknown) (unknown) Respiratory Rate (units (unknown) date) 16 unknown) (unknown) (no (unknown) (unknown) Result Diagrams: (units (unknown) date) unknown) (unknown) (no (unknown) (unknown) Review of Systems (units (unknown) date) unknown) (unknown) (no (unknown) (unknown) S/P CABG x 3 (units (u nknown) date) () unknown) (unknown) (no (unknown) (unknown) S/P cervical (units (u nknown) date) spinal fusion unknown) (unknown) (no (unknown) (unknown) S/P lumbar fusion (units (unknown) date) unknown) (unknown) (no (unknown) (unknown) Safety + (units (unkno wn) date) Behavioral: unknown) (unknown) (no (unknown) (unknown) Signed By: (units (unk nown) date) unknown) (unknown) (no (unknown) (unknown) Smoking Status (units (unknown) date) Former smoker unknown) (unknown) (no (unknown) (unknown) Social History: (units (unknown) date) unknown) (unknown) (no (unknown) (unknown) Sodium (units (unkno wn) date) unknown) (unknown) (no (unknown) (unknown) Sodium 137 (units (u nknown) date) unknown) (unknown) (no (unknown) (unknown) [id number] (units (unknown) date) Reductase AdvReac unknown) Mild WEAK Verified 02/03/22 08:04 (unknown) (no (unknown) (unknown) Substance Use (units ( unknown) date) Type does not unknown) use (unknown) (no (unknown) (unknown) Suicidal Ideation (units (unknown) date) Description unknown) None (unknown) (no (unknown) (unknown) Suicide Plan (units (u nknown) date) Description No unknown) Plan (unknown) (no (unknown) (unknown) Sulfa (units (unkno wn) date) (Sulfonamide unknown) Allergy Mild RASH Verified 02/03/22 08:04 (unknown) (no (unknown) (unknown) Surgical History (units (unknown) date) (Reviewed 02/05/22 unknown) @ 17:55 by Evan Rangel MD) (unknown) (no (unknown) (unknown) Temperature 99.5 (units (unknown) date) F unknown) (unknown) (no (unknown) (unknown) Temperature 99.9 (units (unknown) date) F H 98.8 F unknown) (unknown) (no (unknown) (unknown) Threatened By a (units (unknown) date) Person unknown) (unknown) (no (unknown) (unknown) Time Patient (units (u nknown) date) Seen: 15:00 unknown) (unknown) (no (unknown) (unknown) Time Spent With (units (unknown) date) Patient unknown) (unknown) (no (unknown) (unknown) Tobacco + (units (unkn own) date) Substance use: unknown) (unknown) (no (unknown) (unknown) Tobacco type (units (u nknown) date) cigarettes unknown) (unknown) (no (unknown) (unknown) Total Bilirubin (units (unknown) date) unknown) (unknown) (no (unknown) (unknown) Total Bilirubin (units (unknown) date) 0.8 unknown) (unknown) (no (unknown) (unknown) Total Protein (units ( unknown) date) unknown) (unknown) (no (unknown) (unknown) Total Protein (units ( unknown) date) 6.4 unknown) (unknown) (no (unknown) (unknown) Ventricular (units (un known) date) bigeminy unknown) (unknown) (no (unknown) (unknown) Vital Signs (units (un known) date) unknown) (unknown) (no (unknown) (unknown) WBC (units (unkno wn) date) unknown) (unknown) (no (unknown) (unknown) WBC 8.4 (units (unkno wn) date) unknown) (unknown) (no (unknown) (unknown) [Embedded Image (units (unknown) date) Not Available] unknown) (unknown) (no (unknown) (unknown) [[id number] (units (unknown) date) REDUCTASE unknown) (unknown) (no (unknown) (unknown) [SULFA (units (unkno wn) date) (SULFONAMIDE unknown) (unknown) (no (unknown) (unknown) acetaminophen 300 (units (unknown) date) mg-codeine 30 mg 2 unknown) tab PO Q4H PRN Pain (Scale Score 02/03/22 (unknown) (no (unknown) (unknown) acetaminophen 325 (units (unknown) date) mg tablet 650 mg unknown) PO Q6H PRN pain #60 tabs 11/06/20 01/26/22 Rx (unknown) (no (unknown) (unknown) alcohol intake (units (unknown) date) current unknown) (unknown) (no (unknown) (unknown) alcohol intake (units (unknown) date) frequency 0-2 unknown) drinks per day (unknown) (no (unknown) (unknown) buprenorphine (units ( unknown) date) [BUPRENORPHINE] unknown) AdvReac Mild NAUSEA, Verified 02/03/22 08:04 (unknown) (no (unknown) (unknown) cardiomyopathy (units (unknown) date) unknown) (unknown) (no (unknown) (unknown) celecoxib (units (unkn own) date) [CELECOXIB] unknown) Allergy Mild SWELLING Verified 02/03/22 08:04 (unknown) (no (unknown) (unknown) cetirizine 10 mg (units (unknown) date) capsule (Zyrtec) unknown) 10 mg PO DAILY 05/22/19 02/03/22 History (unknown) (no (unknown) (unknown) clonidine HCl 0.1 (units (unknown) date) mg tablet 0.2 mg unknown) PO BID 12/08/21 02/03/22 History (unknown) (no (unknown) (unknown) diazepam [From (units (unknown) date) Valium] Allergy unknown) Severe Confusion Verified 02/03/22 08:21 (unknown) (no (unknown) (unknown) ferrous sulfate (units (unknown) date) 325 mg (65 mg 325 unknown) mg PO DAILY 10/19/19 02/03/22 History (unknown) (no (unknown) (unknown) fluticasone (units (unk nown) date) propionate 50 1 unknown) spray intranasal DAILY PRN 11/02/17 02/03/22 History (unknown) (no (unknown) (unknown) furosemide 40 mg (units (unknown) date) tablet 40 mg PO unknown) DAILY 02/03/22 02/03/22 History (unknown) (no (unknown) (unknown) glipizide 2.5 mg (units (unknown) date) tablet, extended unknown) 2.5 mg PO DAILY 10/08/21 02/03/22 History (unknown) (no (unknown) (unknown) household members (units (unknown) date) spouse unknown) (unknown) (no (unknown) (unknown) hydromorphone (units ( unknown) date) [From Dilaudid] unknown) Allergy Severe Hallucinating, Verified 02/03/22 (unknown) (no (unknown) (unknown) hyoscyamine (units (un known) date) [HYOSCYAMINE] unknown) AdvReac Mild LEG Verified 02/03/22 08:04 (unknown) (no (unknown) (unknown) iron) (units (unkno wn) date) tablet,delayed unknown) release (unknown) (no (unknown) (unknown) latex [LATEX] (units ( unknown) date) Allergy Mild RASH unknown) Verified 02/03/22 08:04 (unknown) (no (unknown) (unknown) levalbuterol (units (u nknown) date) tartrate 45 1 puff unknown) inhalation Q4-6H PRN 06/22/18 02/03/22 Rx (unknown) (no (unknown) (unknown) lisinopril 10 mg (units (unknown) date) tablet 10 mg PO unknown) DAILY 12/08/21 02/03/22 History (unknown) (no (unknown) (unknown) mcg/actuation (units ( unknown) date) aerosol inhaler unknown) shortness of breath or wheezing (unknown) (no (unknown) (unknown) mcg/actuation (units ( unknown) date) nasal Allergy unknown) Symptoms ##0 (unknown) (no (unknown) (unknown) meclizine 25 mg (units (unknown) date) tablet 25 mg PO unknown) QID PRN vertigo #30 tabs 10/09/21 02/03/22 Rx (unknown) (no (unknown) (unknown) metoprolol (units (unk nown) date) succinate 100 mg unknown) 100 mg PO DAILY 02/03/22 02/03/22 History (unknown) (no (unknown) (unknown) montelukast 10 mg (units (unknown) date) tablet 10 mg PO unknown) DAILY 02/03/22 02/03/22 History (unknown) (no (unknown) (unknown) morphine Allergy (units (unknown) date) Severe unknown) Hallucinating, Verified 02/03/22 08:21 (unknown) (no (unknown) (unknown) multivitamin (units (u nknown) date) (Multiple Vitamins unknown) 1 tab PO DAILY ##0 12/20/16 02/03/22 History (unknown) (no (unknown) (unknown) release 24 hr (units ( unknown) date) (Glucotrol XL) unknown) (unknown) (no (unknown) (unknown) spray,suspension (units (unknown) date) unknown) (unknown) (no (unknown) (unknown) tablet 4-6) (units (un known) date) unknown) (unknown) (no (unknown) (unknown) tablet) (units (unkno wn) date) unknown) (unknown) (no (unknown) (unknown) tablet,extended (units (unknown) date) release 24 hr unknown) (unknown) (no (unknown) (unknown) today; this time (units (unknown) date) is exclusive of unknown) procedural time. (unknown) (no (unknown) (unknown) trazodone 100 mg (units (unknown) date) tablet 400 tab PO unknown) BEDTIME 30 days #120 12/10/21 02/03/22 Rx (unknown) (no (unknown) (unknown) varenicline (units (un known) date) [VARENICLINE] unknown) AdvReac Severe Paranoia Verified 02/03/22 08:04 Result panel 99 (unknown) (no (unknown) (unknown) (no value) (units (unk nown) date) unknown) (unknown) (no (unknown) (unknown) (no value) (units (unk nown) date) unknown) (unknown) (no (unknown) (unknown) Date of Service: (units (unknown) date) 02/03/22 unknown) (unknown) (no (unknown) (unknown) (no value) (units (unk nown) date) unknown) (unknown) (no (unknown) (unknown) 'He gets (units (unkno wn) date) unknown) (unknown) (no (unknown) (unknown) - (units (unkno wn) date) unknown) (unknown) (no (unknown) (unknown) 02/05/22 15:01 (units (unknown) date) unknown) (unknown) (no (unknown) (unknown) 02/05/22 1810 (units ( unknown) date) unknown) (unknown) (no (unknown) (unknown) ANXIETY, (units (unkno wn) date) unknown) (unknown) (no (unknown) (unknown) Allergies (units (unkn own) date) unknown) (unknown) (no (unknown) (unknown) DIZZINESS (units (unkn own) date) unknown) (unknown) (no (unknown) (unknown) EXPOSURE (units (unkno wn) date) unknown) (unknown) (no (unknown) (unknown) History + (units (unkn own) date) Physical Report unknown) (unknown) (no (unknown) (unknown) Home Medications (units (unknown) date) unknown) (unknown) (no (unknown) (unknown) [facility] (units (unknown) date) [address] unknown) [place] [address] (unknown) (no (unknown) (unknown) JERKING, (units (unkno wn) date) unknown) (unknown) (no (unknown) (unknown) Laboratory (units (unk nown) date) Results - last 24 unknown) hr (unknown) (no (unknown) (unknown) MINUTES (units (unkno wn) date) unknown) (unknown) (no (unknown) (unknown) NAUSEA W/I (units (unk nown) date) unknown) (unknown) (no (unknown) (unknown) W/EXTENDED (units (unk nown) date) unknown) (unknown) (no (unknown) (unknown) mind' (units (unkno wn) date) unknown) (unknown) (no (unknown) (unknown) out of his (units (unk nown) date) unknown) (unknown) (no (unknown) (unknown) (no value) (units (unk nown) date) unknown) (unknown) (no (unknown) (unknown) 02/05/22 (units (unkno wn) date) unknown) (unknown) (no (unknown) (unknown) 02/05/22 02/05/22 (units (unknown) date) 02/05/22 unknown) (unknown) (no (unknown) (unknown) 15:01 15:01 15:01 (units (unknown) date) unknown) (unknown) (no (unknown) (unknown) 15:49 (units (unkno wn) date) unknown) (unknown) (no (unknown) (unknown) 02/05/22 (units (unkno wn) date) unknown) (unknown) (no (unknown) (unknown) Medication (units (unk nown) date) Instructions unknown) Recorded Confirmed Type (unknown) (no (unknown) (unknown) Surrogate (units (unkn own) date) decision maker is unknown) in patient?s record [If Yes, STOP here]: Yes (unknown) (no (unknown) (unknown) tabs (units (unkno wn) date) unknown) (unknown) (no (unknown) (unknown) (Athenol) (units (unkn own) date) unknown) (unknown) (no (unknown) (unknown) (Xopenex HFA) #15 (units (unknown) date) grams unknown) (unknown) (no (unknown) (unknown) (past 8 hours): (units (unknown) date) unknown) (unknown) (no (unknown) (unknown) -ABG ordered and (units (unknown) date) CO2 not consistent unknown) with hypercarbia (unknown) (no (unknown) (unknown) -CT head ordered (units (unknown) date) unknown) (unknown) (no (unknown) (unknown) -added (units (unkno wn) date) azithromycin, plan unknown) for 5 days (unknown) (no (unknown) (unknown) -chest xray and (units (unknown) date) ua were ordered unknown) for admitting service which were negative (unknown) (no (unknown) (unknown) -etiology not (units ( unknown) date) clear at the unknown) moment, he is mostly lethargic, think less likely (unknown) (no (unknown) (unknown) -labs look (units (unk nown) date) reassuring with unknown) normal white count and no concerning findings on bmp (unknown) (no (unknown) (unknown) -mild acute (units (un known) date) exacerbation unknown) (unknown) (no (unknown) (unknown) -ordered nebs and (units (unknown) date) steroids as well unknown) (unknown) (no (unknown) (unknown) -recheck ua (units (un known) date) unknown) (unknown) (no (unknown) (unknown) -suspect could be (units (unknown) date) sensitive to unknown) polypharmacy, limit opiates (unknown) (no (unknown) (unknown) [id number] (units (unkn own) date) unknown) (unknown) (no (unknown) (unknown) 02/03/22 History (units (unknown) date) unknown) (unknown) (no (unknown) (unknown) 08:21 (units (unkno wn) date) unknown) (unknown) (no (unknown) (unknown) 1. Acute (units (unkno wn) date) encephalopathy unknown) (unknown) (no (unknown) (unknown) 12:04 02/05/22 (units (unknown) date) unknown) (unknown) (no (unknown) (unknown) 12:08 02/05/22 (units (unknown) date) unknown) (unknown) (no (unknown) (unknown) 12:46 (units (unkno wn) date) unknown) (unknown) (no (unknown) (unknown) 14 systems (units (unk nown) date) reviewed and unknown) negative aside from what is noted in HPI (unknown) (no (unknown) (unknown) 14:35 02/05/22 (units (unknown) date) unknown) (unknown) (no (unknown) (unknown) 15:54 02/05/22 (units (unknown) date) unknown) (unknown) (no (unknown) (unknown) 15:57 (units (unkno wn) date) unknown) (unknown) (no (unknown) (unknown) 2. COPD (units (unkno wn) date) unknown) (unknown) (no (unknown) (unknown) 02/03, he has had (units (unknown) date) intermittent unknown) confusion and lethargy since then, reportedly with (unknown) (no (unknown) (unknown) ABD: soft, (units (unk nown) date) nontender, unknown) nondistended, no organomegaly (unknown) (no (unknown) (unknown) ABG Base Excess (units (unknown) date) unknown) (unknown) (no (unknown) (unknown) ABG Base Excess (units (unknown) date) 7.0 H unknown) (unknown) (no (unknown) (unknown) ABG HCO3 (units (unkno wn) date) unknown) (unknown) (no (unknown) (unknown) ABG HCO3 32 H (units (unknown) date) unknown) (unknown) (no (unknown) (unknown) ABG O2 Saturation (units (unknown) date) unknown) (unknown) (no (unknown) (unknown) ABG O2 Saturation (units (unknown) date) 87 L unknown) (unknown) (no (unknown) (unknown) ABG Total CO2 (units ( unknown) date) unknown) (unknown) (no (unknown) (unknown) ABG Total CO2 33 (units (unknown) date) H unknown) (unknown) (no (unknown) (unknown) ABG pCO2 (units (unkno wn) date) unknown) (unknown) (no (unknown) (unknown) ABG pCO2 52.6 H (units (unknown) date) unknown) (unknown) (no (unknown) (unknown) ABG pH (units (unkno wn) date) unknown) (unknown) (no (unknown) (unknown) ABG pH 7.39 (units (u nknown) date) unknown) (unknown) (no (unknown) (unknown) ABG pO2 (units (unkno wn) date) unknown) (unknown) (no (unknown) (unknown) ABG pO2 55 L (units ( unknown) date) unknown) (unknown) (no (unknown) (unknown) ALT (units (unkno wn) date) unknown) (unknown) (no (unknown) (unknown) ALT 31 (units (unkno wn) date) unknown) (unknown) (no (unknown) (unknown) ANTIBIOTICS)] (units ( unknown) date) unknown) (unknown) (no (unknown) (unknown) AST (units (unkno wn) date) unknown) (unknown) (no (unknown) (unknown) AST 90 H (units (unk nown) date) unknown) (unknown) (no (unknown) (unknown) Achalasia (units (unkn own) date) unknown) (unknown) (no (unknown) (unknown) Age/Sex: 76 / M (units (unknown) date) unknown) (unknown) (no (unknown) (unknown) Albumin (units (unkno wn) date) unknown) (unknown) (no (unknown) (unknown) Albumin 3.6 (units ( unknown) date) unknown) (unknown) (no (unknown) (unknown) Albumin/Globulin (units (unknown) date) Ratio unknown) (unknown) (no (unknown) (unknown) Albumin/Globulin (units (unknown) date) Ratio 1.3 unknown) (unknown) (no (unknown) (unknown) Alkaline (units (unkno wn) date) Phosphatase unknown) (unknown) (no (unknown) (unknown) Alkaline (units (unkno wn) date) Phosphatase 47 unknown) (unknown) (no (unknown) (unknown) Allergy/AdvReac (units (unknown) date) Type Severity unknown) Reaction Status Date / Time (unknown) (no (unknown) (unknown) Anginal pain (units (u nknown) date) unknown) (unknown) (no (unknown) (unknown) Antibiotics) (units (u nknown) date) unknown) (unknown) (no (unknown) (unknown) Assessment + Plan (units (unknown) date) unknown) (unknown) (no (unknown) (unknown) Assessment + Plan (units (unknown) date) narrative: unknown) (unknown) (no (unknown) (unknown) Asthma (units (unkno wn) date) unknown) (unknown) (no (unknown) (unknown) Atrial (units (unkno wn) date) fibrillation unknown) (unknown) (no (unknown) (unknown) BUN (units (unkno wn) date) unknown) (unknown) (no (unknown) (unknown) BUN 14 (units (unkno wn) date) unknown) (unknown) (no (unknown) (unknown) BUN/Creatinine (units (unknown) date) Ratio unknown) (unknown) (no (unknown) (unknown) BUN/Creatinine (units (unknown) date) Ratio 19.2 unknown) (unknown) (no (unknown) (unknown) Baso # (Auto) (units ( unknown) date) unknown) (unknown) (no (unknown) (unknown) Baso # (Auto) (units ( unknown) date) 100 unknown) (unknown) (no (unknown) (unknown) Baso % (Auto) (units ( unknown) date) unknown) (unknown) (no (unknown) (unknown) Baso % (Auto) (units ( unknown) date) 0.6 unknown) (unknown) (no (unknown) (unknown) Been Physically (units (unknown) date) Hurt or No unknown) (unknown) (no (unknown) (unknown) Blood Pressure (units (unknown) date) 121/93 H 121/98 H unknown) (unknown) (no (unknown) (unknown) Blood Pressure (units (unknown) date) 98/60 unknown) (unknown) (no (unknown) (unknown) CODE: Full (units (unk nown) date) unknown) (unknown) (no (unknown) (unknown) COPD (chronic (units ( unknown) date) obstructive unknown) pulmonary disease) (unknown) (no (unknown) (unknown) CV: regular rate (units (unknown) date) and rhythm, no unknown) murmurs (unknown) (no (unknown) (unknown) Calcium (units (unkno wn) date) unknown) (unknown) (no (unknown) (unknown) Calcium 8.1 L (units (unknown) date) unknown) (unknown) (no (unknown) (unknown) Carbon Dioxide (units (unknown) date) unknown) (unknown) (no (unknown) (unknown) Carbon Dioxide (units (unknown) date) 33 H unknown) (unknown) (no (unknown) (unknown) Cervical spinal (units (unknown) date) stenosis unknown) (unknown) (no (unknown) (unknown) Chief complaint: (units (unknown) date) INPT unknown) (unknown) (no (unknown) (unknown) Chloride (units (unkno wn) date) unknown) (unknown) (no (unknown) (unknown) Chloride 101 (units (unknown) date) unknown) (unknown) (no (unknown) (unknown) 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 (10/22/16) (unknown) (no (unknown) (unknown) Coronary artery (units (unknown) date) disease unknown) (unknown) (no (unknown) (unknown) Creatinine (units (unk nown) date) unknown) (unknown) (no (unknown) (unknown) Creatinine 0.73 (units (unknown) date) unknown) (unknown) (no (unknown) (unknown) Critical Care (units ( unknown) date) time: unknown) (unknown) (no (unknown) (unknown) : 1945 (units (unknown) date) Acct:[id number] unknown) (unknown) (no (unknown) (unknown) Date Patient (units (u nknown) date) Seen: 02/05/22 unknown) (unknown) (no (unknown) (unknown) EXT: warm and (units ( unknown) date) well perfused no unknown) edema (unknown) (no (unknown) (unknown) Environment (units (un known) date) unknown) (unknown) (no (unknown) (unknown) Eos # (Auto) (units (u nknown) date) unknown) (unknown) (no (unknown) (unknown) Eos # (Auto) 100 (units (unknown) date) unknown) (unknown) (no (unknown) (unknown) Eos % (Auto) (units (u nknown) date) unknown) (unknown) (no (unknown) (unknown) Eos % (Auto) 1.5 (units (unknown) date) L unknown) (unknown) (no (unknown) (unknown) Estimated GFR (units ( unknown) date) unknown) (unknown) (no (unknown) (unknown) Estimated GFR > (units (unknown) date) 60 unknown) (unknown) (no (unknown) (unknown) Exam (units (unkno wn) date) unknown) (unknown) (no (unknown) (unknown) Exam Narrative: (units (unknown) date) unknown) (unknown) (no (unknown) (unknown) Family + Social (units (unknown) date) History unknown) (unknown) (no (unknown) (unknown) Family History (units (unknown) date) (Reviewed 02/05/22 unknown) @ 17:55 by Evan Rangel MD) (unknown) (no (unknown) (unknown) Father (units (unkno wn) date) Hypertension unknown) (unknown) (no (unknown) (unknown) Feels Safe in (units ( unknown) date) Current Yes unknown) (unknown) (no (unknown) (unknown) FiO2 (units (unkno wn) date) unknown) (unknown) (no (unknown) (unknown) FiO2 21 (units (unkno wn) date) unknown) (unknown) (no (unknown) (unknown) GEN: no acute (units ( unknown) date) distress, unknown) lethargic (unknown) (no (unknown) (unknown) Globulin (units (unkno wn) date) unknown) (unknown) (no (unknown) (unknown) Globulin 2.8 (units (unknown) date) unknown) (unknown) (no (unknown) (unknown) Glucose (units (unkno wn) date) unknown) (unknown) (no (unknown) (unknown) Glucose 141 H (units (unknown) date) unknown) (unknown) (no (unknown) (unknown) H/O arthroscopic (units (unknown) date) knee surgery unknown) (11/14/17) (unknown) (no (unknown) (unknown) HEENT: moist (units (u nknown) date) mucous membranes unknown) (unknown) (no (unknown) (unknown) Hct (units (unkno wn) date) unknown) (unknown) (no (unknown) (unknown) Hct 31.5 L (units (un known) date) unknown) (unknown) (no (unknown) (unknown) He has no specific (units (unknown) date) complaints. He unknown) can't tell me much about why he is here in the (unknown) (no (unknown) (unknown) Hgb (units (unkno wn) date) unknown) (unknown) (no (unknown) (unknown) Hgb 11.1 L (units (un known) date) unknown) (unknown) (no (unknown) (unknown) History of (units (unk nown) date) Present Illness unknown) (unknown) (no (unknown) (unknown) History of aortic (units (unknown) date) dissection unknown) () (unknown) (no (unknown) (unknown) History of (units (unk nown) date) arthroplasty of unknown) left knee (05/24/19) (unknown) (no (unknown) (unknown) History of (units (unk nown) date) arthroplasty of unknown) right knee (unknown) (no (unknown) (unknown) History of (units (unk nown) date) bilateral total unknown) hip arthroplasty (unknown) (no (unknown) (unknown) History of (units (unk nown) date) cardiac cath unknown) () (unknown) (no (unknown) (unknown) History of (units (unk nown) date) esophageal surgery unknown) (unknown) (no (unknown) (unknown) History of (units (unk nown) date) incision and unknown) drainage () (unknown) (no (unknown) (unknown) History of prior (units (unknown) date) ablation treatment unknown) () (unknown) (no (unknown) (unknown) History of (units (unk nown) date) surgery unknown) (unknown) (no (unknown) (unknown) Home Medications (units (unknown) date) and Allergies unknown) (unknown) (no (unknown) (unknown) Hx of (units (unkno wn) date) cholecystectomy unknown) (unknown) (no (unknown) (unknown) Hx of hernia (units (u nknown) date) repair unknown) (unknown) (no (unknown) (unknown) Hx of sinus (units (un known) date) surgery unknown) (unknown) (no (unknown) (unknown) Hypertension (units (u nknown) date) unknown) (unknown) (no (unknown) (unknown) I confirm the (units (u nknown) date) patient?s Advance unknown) Care Plan is present, Code status is documented, (unknown) (no (unknown) (unknown) I have utilized (units (unknown) date) all available unknown) resources to reconcile the patient's home (unknown) (no (unknown) (unknown) I spent a total (units (unknown) date) of [] minutes of unknown) critical care time on this patient's care (unknown) (no (unknown) (unknown) INHIBITOR] (units (unk nown) date) unknown) (unknown) (no (unknown) (unknown) Inhibitor (units (unkn own) date) MUSCLES unknown) (unknown) (no (unknown) (unknown) Ischemic (units (unkno wn) date) cardiomyopathy unknown) (unknown) (no (unknown) (unknown) Labs (units (unkno wn) date) unknown) (unknown) (no (unknown) (unknown) Labs: (units (unkno wn) date) unknown) (unknown) (no (unknown) (unknown) Lactate 1.4 (units (unknown) date) unknown) (unknown) (no (unknown) (unknown) Lactate (units (unkno wn) date) unknown) (unknown) (no (unknown) (unknown) Lymph # (Auto) (units (unknown) date) unknown) (unknown) (no (unknown) (unknown) Lymph # (Auto) (units (unknown) date) 1200 unknown) (unknown) (no (unknown) (unknown) Lymph % (Auto) (units (unknown) date) unknown) (unknown) (no (unknown) (unknown) Lymph % (Auto) (units (unknown) date) 13.8 L unknown) (unknown) (no (unknown) (unknown) MCH (units (unkno wn) date) unknown) (unknown) (no (unknown) (unknown) MCH 32.7 (units (unkn own) date) unknown) (unknown) (no (unknown) (unknown) MCHC (units (unkno wn) date) unknown) (unknown) (no (unknown) (unknown) MCHC 35.2 (units (unk nown) date) unknown) (unknown) (no (unknown) (unknown) MCV (units (unkno wn) date) unknown) (unknown) (no (unknown) (unknown) MCV 92.8 (units (unkn own) date) unknown) (unknown) (no (unknown) (unknown) MIPS - Admit (units (u nknown) date) unknown) (unknown) (no (unknown) (unknown) Medical History (units (unknown) date) (Reviewed 02/05/22 unknown) @ 17:55 by Evan Rangel MD) (unknown) (no (unknown) (unknown) Meds (units (unkno wn) date) unknown) (unknown) (no (unknown) (unknown) [place] # (Auto) (units ( unknown) date) unknown) (unknown) (no (unknown) (unknown) [place] # (Auto) (units ( unknown) date) 1300 H unknown) (unknown) (no (unknown) (unknown) [place] % (Auto) (units ( unknown) date) unknown) (unknown) (no (unknown) (unknown) [place] % (Auto) (units ( unknown) date) 15.8 H unknown) (unknown) (no (unknown) (unknown) Mother (units (unknown) date) Stroke unknown) (unknown) (no (unknown) (unknown) Mr. Viveros is a (units (unknown) date) 76M with PMH afib, unknown) COPD, CAD, prior aortic disection s/p graft, (unknown) (no (unknown) (unknown) Mr. Viveros was (units (unknown) date) admitted for an unknown) elective procedure, underwent lumbar fusion, (unknown) (no (unknown) (unknown) NECK: trachea (units ( unknown) date) midline, no JVD unknown) (unknown) (no (unknown) (unknown) NEURO: confuse, (units (unknown) date) moving all unknown) extremities (unknown) (no (unknown) (unknown) Narcotic (units (unkno wn) date) dependence unknown) (unknown) (no (unknown) (unknown) Narrative (units (unkn own) date) unknown) (unknown) (no (unknown) (unknown) Narrative: (units (unk nown) date) unknown) (unknown) (no (unknown) (unknown) Neck pain, (units (unk nown) date) chronic unknown) (unknown) (no (unknown) (unknown) Neut # (Auto) (units ( unknown) date) unknown) (unknown) (no (unknown) (unknown) Neut # (Auto) (units ( unknown) date) 5700 unknown) (unknown) (no (unknown) (unknown) Neut % (Auto) (units ( unknown) date) unknown) (unknown) (no (unknown) (unknown) Neut % (Auto) (units ( unknown) date) 68.3 unknown) (unknown) (no (unknown) (unknown) Objective (units (unkn own) date) unknown) (unknown) (no (unknown) (unknown) Oxygen Delivery (units (unknown) date) Method unknown) (unknown) (no (unknown) (unknown) Oxygen Delivery (units (unknown) date) Method Nasal unknown) Cannula (unknown) (no (unknown) (unknown) Oxygen Delivery (units (unknown) date) Method Room Air unknown) Nasal Cannula (unknown) (no (unknown) (unknown) Oxygen Flow Rate (units (unknown) date) 2 unknown) (unknown) (no (unknown) (unknown) Oxygen Flow Rate (units (unknown) date) 0 unknown) (unknown) (no (unknown) (unknown) Oxygen Flow Rate (units (unknown) date) 1 2 unknown) (unknown) (no (unknown) (unknown) PULM: poor air (units (unknown) date) movement, unknown) bilaterally (unknown) (no (unknown) (unknown) Patient History (units (unknown) date) unknown) (unknown) (no (unknown) (unknown) Patient: (units (unkno wn) date) Dominic Viveros unknown) MR#: M (unknown) (no (unknown) (unknown) Plt Count (units (unkn own) date) unknown) (unknown) (no (unknown) (unknown) Plt Count 221 (units (unknown) date) unknown) (unknown) (no (unknown) (unknown) Potassium (units (unkn own) date) unknown) (unknown) (no (unknown) (unknown) Potassium 3.8 (units (unknown) date) unknown) (unknown) (no (unknown) (unknown) Prior Living (units (u nknown) date) Arrangements unknown) House (unknown) (no (unknown) (unknown) Provider: (units (unkn own) date) Evan Ragnel MD unknown) (unknown) (no (unknown) (unknown) Proxy: Milana (units (u nknown) date) Donna unknown) (unknown) (no (unknown) (unknown) Pulse Oximetry 92 (units (unknown) date) unknown) (unknown) (no (unknown) (unknown) Pulse Oximetry 97 (units (unknown) date) 87 L 94 unknown) (unknown) (no (unknown) (unknown) Pulse Rate 105 H (units (unknown) date) unknown) (unknown) (no (unknown) (unknown) Pulse Rate 87 87 (units (unknown) date) unknown) (unknown) (no (unknown) (unknown) Quality (units (unkno wn) date) unknown) (unknown) (no (unknown) (unknown) RBC (units (unkno wn) date) unknown) (unknown) (no (unknown) (unknown) RBC 3.40 L (units (un known) date) unknown) (unknown) (no (unknown) (unknown) RDW (units (unkno wn) date) unknown) (unknown) (no (unknown) (unknown) RDW 13.2 (units (unkn own) date) unknown) (unknown) (no (unknown) (unknown) Respiratory Rate (units (unknown) date) 14 unknown) (unknown) (no (unknown) (unknown) Respiratory Rate (units (unknown) date) 16 unknown) (unknown) (no (unknown) (unknown) Result Diagrams: (units (unknown) date) unknown) (unknown) (no (unknown) (unknown) Review of Systems (units (unknown) date) unknown) (unknown) (no (unknown) (unknown) S/P CABG x 3 (units (u nknown) date) () unknown) (unknown) (no (unknown) (unknown) S/P cervical (units (u nknown) date) spinal fusion unknown) (unknown) (no (unknown) (unknown) S/P lumbar fusion (units (unknown) date) unknown) (unknown) (no (unknown) (unknown) Safety + (units (unkno wn) date) Behavioral: unknown) (unknown) (no (unknown) (unknown) Signed (units (unkno wn) date) By:<Electronically unknown) signed by Evan Rangel MD> (unknown) (no (unknown) (unknown) Smoking Status (units (unknown) date) Former smoker unknown) (unknown) (no (unknown) (unknown) Social History: (units (unknown) date) unknown) (unknown) (no (unknown) (unknown) Sodium (units (unkno wn) date) unknown) (unknown) (no (unknown) (unknown) Sodium 137 (units (u nknown) date) unknown) (unknown) (no (unknown) (unknown) [id number] (units (unknown) date) Reductase AdvReac unknown) Mild WEAK Verified 02/03/22 08:04 (unknown) (no (unknown) (unknown) Substance Use (units ( unknown) date) Type does not unknown) use (unknown) (no (unknown) (unknown) Suicidal Ideation (units (unknown) date) Description unknown) None (unknown) (no (unknown) (unknown) Suicide Plan (units (u nknown) date) Description No unknown) Plan (unknown) (no (unknown) (unknown) Sulfa (units (unkno wn) date) (Sulfonamide unknown) Allergy Mild RASH Verified 02/03/22 08:04 (unknown) (no (unknown) (unknown) Surgical History (units (unknown) date) (Reviewed 02/05/22 unknown) @ 17:55 by Evan Rangel MD) (unknown) (no (unknown) (unknown) Temperature 99.5 (units (unknown) date) F unknown) (unknown) (no (unknown) (unknown) Temperature 99.9 (units (unknown) date) F H 98.8 F unknown) (unknown) (no (unknown) (unknown) Threatened By a (units (unknown) date) Person unknown) (unknown) (no (unknown) (unknown) Time Patient (units (u nknown) date) Seen: 15:00 unknown) (unknown) (no (unknown) (unknown) Time Spent With (units (unknown) date) Patient unknown) (unknown) (no (unknown) (unknown) Tobacco + (units (unkn own) date) Substance use: unknown) (unknown) (no (unknown) (unknown) Tobacco type (units (u nknown) date) cigarettes unknown) (unknown) (no (unknown) (unknown) Total Bilirubin (units (unknown) date) unknown) (unknown) (no (unknown) (unknown) Total Bilirubin (units (unknown) date) 0.8 unknown) (unknown) (no (unknown) (unknown) Total Protein (units ( unknown) date) unknown) (unknown) (no (unknown) (unknown) Total Protein (units ( unknown) date) 6.4 unknown) (unknown) (no (unknown) (unknown) Ventricular (units (un known) date) bigeminy unknown) (unknown) (no (unknown) (unknown) Vital Signs (units (un known) date) unknown) (unknown) (no (unknown) (unknown) WBC (units (unkno wn) date) unknown) (unknown) (no (unknown) (unknown) WBC 8.4 (units (unkno wn) date) unknown) (unknown) (no (unknown) (unknown) We will continue (units (unknown) date) to follow along unknown) with you. (unknown) (no (unknown) (unknown) [Embedded Image (units (unknown) date) Not Available] unknown) (unknown) (no (unknown) (unknown) [[id number] (units (unknown) date) REDUCTASE unknown) (unknown) (no (unknown) (unknown) [SULFA (units (unkno wn) date) (SULFONAMIDE unknown) (unknown) (no (unknown) (unknown) acetaminophen 300 (units (unknown) date) mg-codeine 30 mg 2 unknown) tab PO Q4H PRN Pain (Scale Score 02/03/22 (unknown) (no (unknown) (unknown) acetaminophen 325 (units (unknown) date) mg tablet 650 mg unknown) PO Q6H PRN pain #60 tabs 11/06/20 01/26/22 Rx (unknown) (no (unknown) (unknown) alcohol intake (units (unknown) date) current unknown) (unknown) (no (unknown) (unknown) alcohol intake (units (unknown) date) frequency 0-2 unknown) drinks per day (unknown) (no (unknown) (unknown) buprenorphine (units ( unknown) date) [BUPRENORPHINE] unknown) AdvReac Mild NAUSEA, Verified 02/03/22 08:04 (unknown) (no (unknown) (unknown) cardiomyopathy (units (unknown) date) who was admitted unknown) for elective lumbar fusion. This occurred on (unknown) (no (unknown) (unknown) celecoxib (units (unkn own) date) [CELECOXIB] unknown) Allergy Mild SWELLING Verified 02/03/22 08:04 (unknown) (no (unknown) (unknown) cetirizine 10 mg (units (unknown) date) capsule (Zyrtec) unknown) 10 mg PO DAILY 05/22/19 02/03/22 History (unknown) (no (unknown) (unknown) clonidine HCl 0.1 (units (unknown) date) mg tablet 0.2 mg unknown) PO BID 12/08/21 02/03/22 History (unknown) (no (unknown) (unknown) diazepam [From (units (unknown) date) Valium] Allergy unknown) Severe Confusion Verified 02/03/22 08:21 (unknown) (no (unknown) (unknown) encephalopathy. (units (unknown) date) unknown) (unknown) (no (unknown) (unknown) etoh withdrawal (units (unknown) date) unknown) (unknown) (no (unknown) (unknown) ferrous sulfate (units (unknown) date) 325 mg (65 mg 325 unknown) mg PO DAILY 10/19/19 02/03/22 History (unknown) (no (unknown) (unknown) fluticasone (units (unk nown) date) propionate 50 1 unknown) spray intranasal DAILY PRN 11/02/17 02/03/22 History (unknown) (no (unknown) (unknown) furosemide 40 mg (units (unknown) date) tablet 40 mg PO unknown) DAILY 02/03/22 02/03/22 History (unknown) (no (unknown) (unknown) glipizide 2.5 mg (units (unknown) date) tablet, extended unknown) 2.5 mg PO DAILY 10/08/21 02/03/22 History (unknown) (no (unknown) (unknown) hospital. UA was (units (unknown) date) done 02/03 which unknown) was negative for infection. Chest xray done (unknown) (no (unknown) (unknown) household members (units (unknown) date) spouse unknown) (unknown) (no (unknown) (unknown) hydromorphone (units ( unknown) date) [From Dilaudid] unknown) Allergy Severe Hallucinating, Verified 02/03/22 (unknown) (no (unknown) (unknown) hyoscyamine (units (un known) date) [HYOSCYAMINE] unknown) AdvReac Mild LEG Verified 02/03/22 08:04 (unknown) (no (unknown) (unknown) iron) (units (unkno wn) date) tablet,delayed unknown) release (unknown) (no (unknown) (unknown) last night showed (units (unknown) date) no acute process. unknown) Medicine is consulted to help manage his (unknown) (no (unknown) (unknown) latex [LATEX] (units ( unknown) date) Allergy Mild RASH unknown) Verified 02/03/22 08:04 (unknown) (no (unknown) (unknown) levalbuterol (units (u nknown) date) tartrate 45 1 puff unknown) inhalation Q4-6H PRN 06/22/18 02/03/22 Rx (unknown) (no (unknown) (unknown) lisinopril 10 mg (units (unknown) date) tablet 10 mg PO unknown) DAILY 12/08/21 02/03/22 History (unknown) (no (unknown) (unknown) mcg/actuation (units ( unknown) date) aerosol inhaler unknown) shortness of breath or wheezing (unknown) (no (unknown) (unknown) mcg/actuation (units ( unknown) date) nasal Allergy unknown) Symptoms ##0 (unknown) (no (unknown) (unknown) meclizine 25 mg (units (unknown) date) tablet 25 mg PO unknown) QID PRN vertigo #30 tabs 10/09/21 02/03/22 Rx (unknown) (no (unknown) (unknown) medications. (units (u nknown) date) unknown) (unknown) (no (unknown) (unknown) medicine is (units (un known) date) consulted for unknown) confusion and lethargy. (unknown) (no (unknown) (unknown) metoprolol (units (unk nown) date) succinate 100 mg unknown) 100 mg PO DAILY 02/03/22 02/03/22 History (unknown) (no (unknown) (unknown) moments of (units (unk nown) date) agitation. When I unknown) see him he is sitting in a chair and quite drowsy. (unknown) (no (unknown) (unknown) montelukast 10 mg (units (unknown) date) tablet 10 mg PO unknown) DAILY 02/03/22 02/03/22 History (unknown) (no (unknown) (unknown) morphine Allergy (units (unknown) date) Severe unknown) Hallucinating, Verified 02/03/22 08:21 (unknown) (no (unknown) (unknown) multivitamin (units (u nknown) date) (Multiple Vitamins unknown) 1 tab PO DAILY ##0 12/20/16 02/03/22 History (unknown) (no (unknown) (unknown) release 24 hr (units ( unknown) date) (Glucotrol XL) unknown) (unknown) (no (unknown) (unknown) spray,suspension (units (unknown) date) unknown) (unknown) (no (unknown) (unknown) tablet 4-6) (units (un known) date) unknown) (unknown) (no (unknown) (unknown) tablet) (units (unkno wn) date) unknown) (unknown) (no (unknown) (unknown) tablet,extended (units (unknown) date) release 24 hr unknown) (unknown) (no (unknown) (unknown) today; this time (units (unknown) date) is exclusive of unknown) procedural time. (unknown) (no (unknown) (unknown) trazodone 100 mg (units (unknown) date) tablet 400 tab PO unknown) BEDTIME 30 days #120 12/10/21 02/03/22 Rx (unknown) (no (unknown) (unknown) varenicline (units (un known) date) [VARENICLINE] unknown) AdvReac Severe Paranoia Verified 02/03/22 08:04 Result panel 100 (unknown) (no (unknown) (unknown) (no value) (units (unk nown) date) unknown) (unknown) (no (unknown) (unknown) (no value) (units (unk nown) date) unknown) (unknown) (no (unknown) (unknown) [address] [place] [address] (units (unknown) date) unknown) (unknown) (no (unknown) (unknown) [place], [place] (units ( unknown) date) [id number] unknown) (unknown) (no (unknown) (unknown) CT Scan Report (units (unknown) date) unknown) (unknown) (no (unknown) (unknown) [facility] (units (unknown) date) unknown) (unknown) (no (unknown) (unknown) Signed (units (unkno wn) date) unknown) (unknown) (no (unknown) (unknown) (no value) (units (unk nown) date) unknown) (unknown) (no (unknown) (unknown) Associated (units (unk nown) date) infection cannot unknown) be excluded. (unknown) (no (unknown) (unknown) 02/05/22 (units (unkno wn) date) unknown) (unknown) (no (unknown) (unknown) 1. Interval (units (u nknown) date) postsurgical unknown) changes consistent with revision of surgical fusion (unknown) (no (unknown) (unknown) 2. Postsurgical (units (unknown) date) changes are unknown) demonstrated in the posterior paraspinous soft (unknown) (no (unknown) (unknown) 3. Scattered (units (u nknown) date) air-fluid levels unknown) throughout the colon suggestive of a (unknown) (no (unknown) (unknown) ABDOMEN: (units (unkno wn) date) unknown) (unknown) (no (unknown) (unknown) Abdominal Nodes: (units (unknown) date) No retroperitoneal unknown) or mesenteric adenopathy by size criteria. (unknown) (no (unknown) (unknown) Adrenal Glands: (units (unknown) date) No adrenal unknown) nodules. (unknown) (no (unknown) (unknown) After the (units (unkn own) date) administration of unknown) IV contrast, axial sections were acquired from the (unknown) (no (unknown) (unknown) Approved by: (units (u nknown) date) Maxim Valadez, unknown) Clifford on 02/05/2022 at 22:28 (unknown) (no (unknown) (unknown) Biliary ducts: (units (unknown) date) No biliary ductal unknown) dilatation. (unknown) (no (unknown) (unknown) Bladder: (units (unkno wn) date) Unremarkable. unknown) (unknown) (no (unknown) (unknown) Bones: There are (units (unknown) date) postsurgical unknown) changes consistent with interval revision in the (unknown) (no (unknown) (unknown) COMPARISON: (units (un known) date) [facility], unknown) CT, CT LUMBAR SPINE WO CON, 01/21/2022, 14:03. (unknown) (no (unknown) (unknown) Dictated by: (units (u nknown) date) Maxim Valadez, unknown) Clifford on 02/05/2022 at 22:15 (unknown) (no (unknown) (unknown) FINDINGS: (units (unkn own) date) unknown) (unknown) (no (unknown) (unknown) Gallbladder: (units (u nknown) date) Surgically absent. unknown) (unknown) (no (unknown) (unknown) Heart: Heart is (units (unknown) date) mildly enlarged. unknown) (unknown) (no (unknown) (unknown) Hospital, CT, CT (units (unknown) date) ABDOMEN PELVIS W unknown) CON, 06/22/2018, 11:21. (unknown) (no (unknown) (unknown) IMPRESSION: (units (un known) date) unknown) (unknown) (no (unknown) (unknown) INDICATIONS: (units (u nknown) date) fever, abdominal unknown) pain (unknown) (no (unknown) (unknown) Image quality: (units (unknown) date) There is mild unknown) motion artifact. Extensive streak artifact is (unknown) (no (unknown) (unknown) Kidneys and (units (un known) date) Ureters: No unknown) hydronephrosis. There is nonspecific mild perinephric (unknown) (no (unknown) (unknown) Liver: There is (units (unknown) date) hypoattenuation of unknown) the liver consistent with fatty (unknown) (no (unknown) (unknown) Lung bases: (units (un known) date) There is bilateral unknown) atelectasis posteriorly in the lower lobes. (unknown) (no (unknown) (unknown) Miscellaneous: No (units (unknown) date) inguinal hernias unknown) are seen. (unknown) (no (unknown) (unknown) PELVIS: (units (unkno wn) date) unknown) (unknown) (no (unknown) (unknown) Pancreas: (units (unkn own) date) Unremarkable. unknown) (unknown) (no (unknown) (unknown) Pelvic Nodes: No (units (unknown) date) enlarged lymph unknown) nodes. (unknown) (no (unknown) (unknown) Pelvic Organs: (units (unknown) date) Unremarkable. unknown) (unknown) (no (unknown) (unknown) Peritoneum: No (units (unknown) date) abnormal unknown) intraperitoneal fluid. No free air. (unknown) (no (unknown) (unknown) Spleen: Normal (units (unknown) date) in size. unknown) (unknown) (no (unknown) (unknown) Stomach and (units (un known) date) Bowel: Stomach, unknown) small bowel loops, and colon are normal in caliber (unknown) (no (unknown) (unknown) TECHNIQUE: (units (unk nown) date) unknown) (unknown) (no (unknown) (unknown) Ventral Wall: (units ( unknown) date) No hernia. unknown) (unknown) (no (unknown) (unknown) Vessels: Aorta (units (unknown) date) and inferior vena unknown) cava are normal in size. (unknown) (no (unknown) (unknown) Visualized (units (unk nown) date) osseous structures unknown) demonstrate no suspicious focal lesions. (unknown) (no (unknown) (unknown) and/or kV (units (unkn own) date) according to unknown) patient size. (unknown) (no (unknown) (unknown) bilateral pedicle (units (unknown) date) screws and unknown) posterior fixation rods. Intervertebral spaces (unknown) (no (unknown) (unknown) demonstrated at (units (unknown) date) L2-L3, L3-L4, unknown) L4-5, and L5-S1. There is edema within the (unknown) (no (unknown) (unknown) dose reduction, (units (unknown) date) the following was unknown) used: automated exposure control, adjustment (unknown) (no (unknown) (unknown) excluded. No (units ( unknown) date) definite loculated unknown) abscess collection is identified but (unknown) (no (unknown) (unknown) from patient's (units (unknown) date) surgical hardware. unknown) (unknown) (no (unknown) (unknown) ileus. No (units (unk nown) date) evidence of unknown) obstruction. (unknown) (no (unknown) (unknown) including gas and (units (unknown) date) fluid within the unknown) paraspinous musculature and subcutaneous (unknown) (no (unknown) (unknown) limited by (units (unk nown) date) metallic streak unknown) artifact. Bilateral hip prostheses are also (unknown) (no (unknown) (unknown) lower lumbar (units (u nknown) date) spine. unknown) (unknown) (no (unknown) (unknown) obstruction. (units (u nknown) date) unknown) (unknown) (no (unknown) (unknown) of a (units (unkno wn) date) gastroenteritis. unknown) No abnormal dilatation or transition points to suggest (unknown) (no (unknown) (unknown) paraspinous (units (un known) date) musculature and unknown) subcutaneous soft tissues with scattered fluid and (unknown) (no (unknown) (unknown) redemonstrated (units (unknown) date) bilaterally. unknown) (unknown) (no (unknown) (unknown) spine with (units (unk nown) date) posterior fusion unknown) now demonstrated at the L2 through S1 levels (unknown) (no (unknown) (unknown) thickness. The (units (unknown) date) appendix is normal unknown) in appearance. There is colonic (unknown) (no (unknown) (unknown) tissue gas (units (unk nown) date) consistent with unknown) postsurgical changes. Associated infection cannot (unknown) (no (unknown) (unknown) to the pubic (units (u nknown) date) symphysis. unknown) Coronal and sagittal reformats were performed. For (unknown) (no (unknown) (unknown) without acute (units ( unknown) date) diverticulitis. unknown) There are air-fluid levels throughout the colon (unknown) (no (unknown) (unknown) Accession Number: (units (unknown) date) [id number] unknown) (unknown) (no (unknown) (unknown) Age/Sex: 76 / M (units (unknown) date) Date of Service: unknown) (unknown) (no (unknown) (unknown) : 1945 (units (unknown) date) Acct:[id number] unknown) (unknown) (no (unknown) (unknown) [place] (units (unkno wn) date) unknown) (unknown) (no (unknown) (unknown) Loc: 224-1 (units (unknown) date) unknown) (unknown) (no (unknown) (unknown) [id number] (units (unk nown) date) unknown) (unknown) (no (unknown) (unknown) Ordering (units (unkno wn) date) Provider: unknown) Eavn Rangel MD (unknown) (no (unknown) (unknown) PROCEDURE: CT (units (unknown) date) ABDOMEN PELVIS W unknown) CON (unknown) (no (unknown) (unknown) Patient: (units (unkno wn) date) Dominic Viveros unknown) MR#: (unknown) (no (unknown) (unknown) Procedure: CT (units ( unknown) date) abdomen pelvis w unknown) con (unknown) (no (unknown) (unknown) also present (units (u nknown) date) unknown) (unknown) (no (unknown) (unknown) and wall (units (unkno wn) date) unknown) (unknown) (no (unknown) (unknown) are also (units (unkno wn) date) unknown) (unknown) (no (unknown) (unknown) associated with (units (unknown) date) unknown) (unknown) (no (unknown) (unknown) be (units (unkno wn) date) unknown) (unknown) (no (unknown) (unknown) diverticulosis (units (unknown) date) unknown) (unknown) (no (unknown) (unknown) evaluation is (units ( unknown) date) unknown) (unknown) (no (unknown) (unknown) gastroenteritis (units (unknown) date) or unknown) (unknown) (no (unknown) (unknown) in the (units (unkno wn) date) unknown) (unknown) (no (unknown) (unknown) infiltration. (units ( unknown) date) unknown) (unknown) (no (unknown) (unknown) lumbar (units (unkno wn) date) unknown) (unknown) (no (unknown) (unknown) lung bases (units (unk nown) date) unknown) (unknown) (no (unknown) (unknown) of mA (units (unkno wn) date) unknown) (unknown) (no (unknown) (unknown) posterior (units (unkn own) date) unknown) (unknown) (no (unknown) (unknown) radiation (units (unkn own) date) unknown) (unknown) (no (unknown) (unknown) redemonstrated. (units (unknown) date) unknown) (unknown) (no (unknown) (unknown) soft (units (unkno wn) date) unknown) (unknown) (no (unknown) (unknown) soft tissues. (units ( unknown) date) unknown) (unknown) (no (unknown) (unknown) stranding (units (unkn own) date) unknown) (unknown) (no (unknown) (unknown) suggestive (units (unk nown) date) unknown) (unknown) (no (unknown) (unknown) tissues (units (unkno wn) date) unknown) Result panel 101 (unknown) (no date) (unknown) (unknown) 0.6 % (unkn own) (unknown) (no date) (unknown) (unknown) 10.7 g/dL (unkn own) (unknown) (no date) (unknown) (unknown) 100 /uL (unkn own) (unknown) (no date) (unknown) (unknown) 1100 /uL (unkn own) (unknown) (no date) (unknown) (unknown) 1200 /uL (unkn own) (unknown) (no date) (unknown) (unknown) 13.0 % (unkn own) (unknown) (no date) (unknown) (unknown) 14.2 % (unkn own) (unknown) (no date) (unknown) (unknown) 15.4 % (unkn own) (unknown) (no date) (unknown) (unknown) 2.0 % (unkn own) (unknown) (no date) (unknown) (unknown) 200 /uL (unkn own) (unknown) (no date) (unknown) (unknown) 230 X10 3/uL (unkn own) (unknown) (no date) (unknown) (unknown) 3.27 X10 6/uL (unkn own) (unknown) (no date) (unknown) (unknown) 30.2 % (unkn own) (unknown) (no date) (unknown) (unknown) 32.8 PG (unkn own) (unknown) (no date) (unknown) (unknown) 35.5 % (unkn own) (unknown) (no date) (unknown) (unknown) 5400 /uL (unkn own) (unknown) (no date) (unknown) (unknown) 67.8 % (unkn own) (unknown) (no date) (unknown) (unknown) 8.0 X10 3/uL (unkn own) (unknown) (no date) (unknown) (unknown) 92.4 fL (unkn own) Result panel 102 (unknown) (no date) (unknown) (unknown) > 60 mL/min (unkn own) (unknown) (no date) (unknown) (unknown) 0.7 mg/dL (unkn own) (unknown) (no date) (unknown) (unknown) 0.74 mg/dL (unkn own) (unknown) (no date) (unknown) (unknown) 0.8 mmol/L (unkn own) (unknown) (no date) (unknown) (unknown) 1.2 (units unknown) (unknown) (unknown) (no date) (unknown) (unknown) 100 mmol/L (unkn own) (unknown) (no date) (unknown) (unknown) 117 mg/dL (unkn own) (unknown) (no date) (unknown) (unknown) 137 mmol/L (unkn own) (unknown) (no date) (unknown) (unknown) 15 mg/dL (unkn own) (unknown) (no date) (unknown) (unknown) 20.3 (units unknown) (unknown) (unknown) (no date) (unknown) (unknown) 3.0 g/dL (unkn own) (unknown) (no date) (unknown) (unknown) 3.6 g/dL (unkn own) (unknown) (no date) (unknown) (unknown) 33 mmol/L (unkn own) (unknown) (no date) (unknown) (unknown) 36 IU/L (unkn own) (unknown) (no date) (unknown) (unknown) 4.0 mmol/L (unkn own) (unknown) (no date) (unknown) (unknown) 51 U/L (unkn own) (unknown) (no date) (unknown) (unknown) 6.6 g/dL (unkn own) (unknown) (no date) (unknown) (unknown) 8.3 mg/dL (unkn own) (unknown) (no date) (unknown) (unknown) 98 IU/L (unkn own) Result panel 103 (unknown) (no (unknown) (unknown) (no value) (units (unk nown) date) unknown) (unknown) (no (unknown) (unknown) Date of Service: (units (unknown) date) 02/03/22 unknown) (unknown) (no (unknown) (unknown) (no value) (units (unk nown) date) unknown) (unknown) (no (unknown) (unknown) - (units (unkno wn) date) unknown) (unknown) (no (unknown) (unknown) 02/06/22 07:06 (units (unknown) date) unknown) (unknown) (no (unknown) (unknown) [facility] (units (unknown) date) [address] unknown) [place] [address] (unknown) (no (unknown) (unknown) Laboratory (units (unk nown) date) Results - last 24 unknown) hr (unknown) (no (unknown) (unknown) Operation Date: (units (unknown) date) 02/03/22 09:15 unknown) (unknown) (no (unknown) (unknown) Procedures (units (unk nown) date) unknown) (unknown) (no (unknown) (unknown) Progress Note (units ( unknown) date) unknown) (unknown) (no (unknown) (unknown) (no value) (units (unk nown) date) unknown) (unknown) (no (unknown) (unknown) 02/05/22 02/05/22 (units (unknown) date) 02/05/22 unknown) (unknown) (no (unknown) (unknown) 02/05/22 02/06/22 (units (unknown) date) 02/06/22 unknown) (unknown) (no (unknown) (unknown) 02/06/22 (units (unkno wn) date) unknown) (unknown) (no (unknown) (unknown) 07:06 (units (unkno wn) date) unknown) (unknown) (no (unknown) (unknown) 15:01 15:01 15:01 (units (unknown) date) unknown) (unknown) (no (unknown) (unknown) 15:49 07:06 07:06 (units (unknown) date) unknown) (unknown) (no (unknown) (unknown) 02/06/22 (units (unkno wn) date) unknown) (unknown) (no (unknown) (unknown) (past 8 hours): (units (unknown) date) unknown) (unknown) (no (unknown) (unknown) [id number] (units (unkn own) date) unknown) (unknown) (no (unknown) (unknown) 04:00 02/06/22 (units (unknown) date) unknown) (unknown) (no (unknown) (unknown) 08:00 (units (unkno wn) date) unknown) (unknown) (no (unknown) (unknown) ABG Base Excess (units (unknown) date) unknown) (unknown) (no (unknown) (unknown) ABG Base Excess (units (unknown) date) unknown) (unknown) (no (unknown) (unknown) ABG Base Excess (units (unknown) date) 7.0 H unknown) (unknown) (no (unknown) (unknown) ABG HCO3 (units (unkno wn) date) unknown) (unknown) (no (unknown) (unknown) ABG HCO3 (units (unkno wn) date) unknown) (unknown) (no (unknown) (unknown) ABG HCO3 32 H (units (unknown) date) unknown) (unknown) (no (unknown) (unknown) ABG O2 Saturation (units (unknown) date) unknown) (unknown) (no (unknown) (unknown) ABG O2 Saturation (units (unknown) date) unknown) (unknown) (no (unknown) (unknown) ABG O2 Saturation (units (unknown) date) 87 L unknown) (unknown) (no (unknown) (unknown) ABG Total CO2 (units ( unknown) date) unknown) (unknown) (no (unknown) (unknown) ABG Total CO2 (units ( unknown) date) unknown) (unknown) (no (unknown) (unknown) ABG Total CO2 33 (units (unknown) date) H unknown) (unknown) (no (unknown) (unknown) ABG pCO2 (units (unkno wn) date) unknown) (unknown) (no (unknown) (unknown) ABG pCO2 (units (unkno wn) date) unknown) (unknown) (no (unknown) (unknown) ABG pCO2 52.6 H (units (unknown) date) unknown) (unknown) (no (unknown) (unknown) ABG pH (units (unkno wn) date) unknown) (unknown) (no (unknown) (unknown) ABG pH (units (unkno wn) date) unknown) (unknown) (no (unknown) (unknown) ABG pH 7.39 (units (u nknown) date) unknown) (unknown) (no (unknown) (unknown) ABG pO2 (units (unkno wn) date) unknown) (unknown) (no (unknown) (unknown) ABG pO2 (units (unkno wn) date) unknown) (unknown) (no (unknown) (unknown) ABG pO2 55 L (units ( unknown) date) unknown) (unknown) (no (unknown) (unknown) ALT 36 (units (unkn own) date) unknown) (unknown) (no (unknown) (unknown) ALT (units (unkno wn) date) unknown) (unknown) (no (unknown) (unknown) ALT 31 (units (unkno wn) date) unknown) (unknown) (no (unknown) (unknown) AST 98 H (units (un known) date) unknown) (unknown) (no (unknown) (unknown) AST (units (unkno wn) date) unknown) (unknown) (no (unknown) (unknown) AST 90 H (units (unk nown) date) unknown) (unknown) (no (unknown) (unknown) Achalasia (units (unkn own) date) unknown) (unknown) (no (unknown) (unknown) Actual Procedure (units (unknown) date) Side Surgeon unknown) (unknown) (no (unknown) (unknown) Age/Sex: 76 / M (units (unknown) date) unknown) (unknown) (no (unknown) (unknown) Albumin 3.6 (units (unknown) date) unknown) (unknown) (no (unknown) (unknown) Albumin (units (unkno wn) date) unknown) (unknown) (no (unknown) (unknown) Albumin 3.6 (units ( unknown) date) unknown) (unknown) (no (unknown) (unknown) Albumin/Globulin (units (unknown) date) Ratio 1.2 unknown) (unknown) (no (unknown) (unknown) Albumin/Globulin (units (unknown) date) Ratio unknown) (unknown) (no (unknown) (unknown) Albumin/Globulin (units (unknown) date) Ratio 1.3 unknown) (unknown) (no (unknown) (unknown) Alkaline (units (unkno wn) date) Phosphatase 51 unknown) (unknown) (no (unknown) (unknown) Alkaline (units (unkno wn) date) Phosphatase unknown) (unknown) (no (unknown) (unknown) Alkaline (units (unkno wn) date) Phosphatase 47 unknown) (unknown) (no (unknown) (unknown) Anginal pain (units (u nknown) date) unknown) (unknown) (no (unknown) (unknown) Assessment + Plan (units (unknown) date) Post-op unknown) (unknown) (no (unknown) (unknown) Asthma (units (unkno wn) date) unknown) (unknown) (no (unknown) (unknown) Atrial (units (unkno wn) date) fibrillation unknown) (unknown) (no (unknown) (unknown) BUN 15 (units (unkn own) date) unknown) (unknown) (no (unknown) (unknown) BUN (units (unkno wn) date) unknown) (unknown) (no (unknown) (unknown) BUN 14 (units (unkno wn) date) unknown) (unknown) (no (unknown) (unknown) BUN/Creatinine (units (unknown) date) Ratio 20.3 unknown) (unknown) (no (unknown) (unknown) BUN/Creatinine (units (unknown) date) Ratio unknown) (unknown) (no (unknown) (unknown) BUN/Creatinine (units (unknown) date) Ratio 19.2 unknown) (unknown) (no (unknown) (unknown) Baso # (Auto) (units ( unknown) date) unknown) (unknown) (no (unknown) (unknown) Baso # (Auto) (units ( unknown) date) 100 unknown) (unknown) (no (unknown) (unknown) Baso # (Auto) (units ( unknown) date) 100 unknown) (unknown) (no (unknown) (unknown) Baso % (Auto) (units ( unknown) date) unknown) (unknown) (no (unknown) (unknown) Baso % (Auto) (units ( unknown) date) 0.6 unknown) (unknown) (no (unknown) (unknown) Baso % (Auto) (units ( unknown) date) 0.6 unknown) (unknown) (no (unknown) (unknown) Blood Pressure (units (unknown) date) 118/67 153/75 H unknown) (unknown) (no (unknown) (unknown) COPD (chronic (units ( unknown) date) obstructive unknown) pulmonary disease) (unknown) (no (unknown) (unknown) Calcium 8.3 L (units (unknown) date) unknown) (unknown) (no (unknown) (unknown) Calcium (units (unkno wn) date) unknown) (unknown) (no (unknown) (unknown) Calcium 8.1 L (units (unknown) date) unknown) (unknown) (no (unknown) (unknown) Carbon Dioxide (units (unknown) date) 33 H unknown) (unknown) (no (unknown) (unknown) Carbon Dioxide (units (unknown) date) unknown) (unknown) (no (unknown) (unknown) Carbon Dioxide (units (unknown) date) 33 H unknown) (unknown) (no (unknown) (unknown) Cervical spinal (units (unknown) date) stenosis unknown) (unknown) (no (unknown) (unknown) Chloride 100 (units (unknown) date) unknown) (unknown) (no (unknown) (unknown) Chloride (units (unkno wn) date) unknown) (unknown) (no (unknown) (unknown) Chloride 101 (units (unknown) date) unknown) (unknown) (no (unknown) (unknown) 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 (10/22/16) (unknown) (no (unknown) (unknown) Continues to (units (u nknown) date) complain of back unknown) pain, denies leg pain. Said he was too dizzy to (unknown) (no (unknown) (unknown) Coronary artery (units (unknown) date) disease unknown) (unknown) (no (unknown) (unknown) Creatinine (units (unk nown) date) 0.74 unknown) (unknown) (no (unknown) (unknown) Creatinine (units (unk nown) date) unknown) (unknown) (no (unknown) (unknown) Creatinine 0.73 (units (unknown) date) unknown) (unknown) (no (unknown) (unknown) : 1945 (units (unknown) date) Acct:[id number] unknown) (unknown) (no (unknown) (unknown) Date Patient (units (u nknown) date) Seen: 02/06/22 unknown) (unknown) (no (unknown) (unknown) Eos # (Auto) (units (u nknown) date) unknown) (unknown) (no (unknown) (unknown) Eos # (Auto) (units (u nknown) date) 200 unknown) (unknown) (no (unknown) (unknown) Eos # (Auto) 100 (units (unknown) date) unknown) (unknown) (no (unknown) (unknown) Eos % (Auto) (units (u nknown) date) unknown) (unknown) (no (unknown) (unknown) Eos % (Auto) (units (u nknown) date) 2.0 unknown) (unknown) (no (unknown) (unknown) Eos % (Auto) 1.5 (units (unknown) date) L unknown) (unknown) (no (unknown) (unknown) Estimated GFR (units ( unknown) date) > 60 unknown) (unknown) (no (unknown) (unknown) Estimated GFR (units ( unknown) date) unknown) (unknown) (no (unknown) (unknown) Estimated GFR > (units (unknown) date) 60 unknown) (unknown) (no (unknown) (unknown) Exam (units (unkno wn) date) unknown) (unknown) (no (unknown) (unknown) Exam Narrative: (units (unknown) date) unknown) (unknown) (no (unknown) (unknown) Family History (units (unknown) date) (Reviewed 02/05/22 unknown) @ 17:55 by Evan Rangel MD) (unknown) (no (unknown) (unknown) Father (units (unkno wn) date) Hypertension unknown) (unknown) (no (unknown) (unknown) FiO2 (units (unkno wn) date) unknown) (unknown) (no (unknown) (unknown) FiO2 (units (unkno wn) date) unknown) (unknown) (no (unknown) (unknown) FiO2 21 (units (unkno wn) date) unknown) (unknown) (no (unknown) (unknown) Globulin 3.0 (units (unknown) date) unknown) (unknown) (no (unknown) (unknown) Globulin (units (unkno wn) date) unknown) (unknown) (no (unknown) (unknown) Globulin 2.8 (units (unknown) date) unknown) (unknown) (no (unknown) (unknown) Glucose 117 H (units (unknown) date) unknown) (unknown) (no (unknown) (unknown) Glucose (units (unkno wn) date) unknown) (unknown) (no (unknown) (unknown) Glucose 141 H (units (unknown) date) unknown) (unknown) (no (unknown) (unknown) H/O arthroscopic (units (unknown) date) knee surgery unknown) (11/14/17) (unknown) (no (unknown) (unknown) Hct (units (unkno wn) date) unknown) (unknown) (no (unknown) (unknown) Hct 30.2 L (units (u nknown) date) unknown) (unknown) (no (unknown) (unknown) Hct 31.5 L (units (un known) date) unknown) (unknown) (no (unknown) (unknown) Hgb (units (unkno wn) date) unknown) (unknown) (no (unknown) (unknown) Hgb 10.7 L (units (u nknown) date) unknown) (unknown) (no (unknown) (unknown) Hgb 11.1 L (units (un known) date) unknown) (unknown) (no (unknown) (unknown) History of aortic (units (unknown) date) dissection unknown) () (unknown) (no (unknown) (unknown) History of (units (unk nown) date) arthroplasty of unknown) left knee (05/24/19) (unknown) (no (unknown) (unknown) History of (units (unk nown) date) arthroplasty of unknown) right knee (unknown) (no (unknown) (unknown) History of (units (unk nown) date) bilateral total unknown) hip arthroplasty (unknown) (no (unknown) (unknown) History of (units (unk nown) date) cardiac cath unknown) () (unknown) (no (unknown) (unknown) History of (units (unk nown) date) esophageal surgery unknown) (unknown) (no (unknown) (unknown) History of (units (unk nown) date) incision and unknown) drainage () (unknown) (no (unknown) (unknown) History of prior (units (unknown) date) ablation treatment unknown) () (unknown) (no (unknown) (unknown) History of (units (unk nown) date) surgery unknown) (unknown) (no (unknown) (unknown) Hx of (units (unkno wn) date) cholecystectomy unknown) (unknown) (no (unknown) (unknown) Hx of hernia (units (u nknown) date) repair unknown) (unknown) (no (unknown) (unknown) Hx of sinus (units (un known) date) surgery unknown) (unknown) (no (unknown) (unknown) Hypertension (units (u nknown) date) unknown) (unknown) (no (unknown) (unknown) Interval history: (units (unknown) date) unknown) (unknown) (no (unknown) (unknown) Ischemic (units (unkno wn) date) cardiomyopathy unknown) (unknown) (no (unknown) (unknown) Labs (units (unkno wn) date) unknown) (unknown) (no (unknown) (unknown) Labs: (units (unkno wn) date) unknown) (unknown) (no (unknown) (unknown) Lactate (units (unkno wn) date) unknown) (unknown) (no (unknown) (unknown) Lactate 1.4 (units (unknown) date) unknown) (unknown) (no (unknown) (unknown) Lactate 0.8 (units (u nknown) date) unknown) (unknown) (no (unknown) (unknown) Lymph # (Auto) (units (unknown) date) unknown) (unknown) (no (unknown) (unknown) Lymph # (Auto) (units (unknown) date) 1200 unknown) (unknown) (no (unknown) (unknown) Lymph # (Auto) (units (unknown) date) 1200 unknown) (unknown) (no (unknown) (unknown) Lymph % (Auto) (units (unknown) date) unknown) (unknown) (no (unknown) (unknown) Lymph % (Auto) (units (unknown) date) 15.4 L unknown) (unknown) (no (unknown) (unknown) Lymph % (Auto) (units (unknown) date) 13.8 L unknown) (unknown) (no (unknown) (unknown) MCH (units (unkno wn) date) unknown) (unknown) (no (unknown) (unknown) MCH 32.8 (units (unk nown) date) unknown) (unknown) (no (unknown) (unknown) MCH 32.7 (units (unkn own) date) unknown) (unknown) (no (unknown) (unknown) MCHC (units (unkno wn) date) unknown) (unknown) (no (unknown) (unknown) MCHC 35.5 (units (un known) date) unknown) (unknown) (no (unknown) (unknown) MCHC 35.2 (units (unk nown) date) unknown) (unknown) (no (unknown) (unknown) MCV (units (unkno wn) date) unknown) (unknown) (no (unknown) (unknown) MCV 92.4 (units (unk nown) date) unknown) (unknown) (no (unknown) (unknown) MCV 92.8 (units (unkn own) date) unknown) (unknown) (no (unknown) (unknown) Medical History (units (unknown) date) (Reviewed 02/05/22 unknown) @ 17:55 by Evan Rangel MD) (unknown) (no (unknown) (unknown) [place] # (Auto) (units ( unknown) date) unknown) (unknown) (no (unknown) (unknown) [place] # (Auto) (units ( unknown) date) 1100 H unknown) (unknown) (no (unknown) (unknown) [place] # (Auto) (units ( unknown) date) 1300 H unknown) (unknown) (no (unknown) (unknown) [place] % (Auto) (units ( unknown) date) unknown) (unknown) (no (unknown) (unknown) [place] % (Auto) (units ( unknown) date) 14.2 H unknown) (unknown) (no (unknown) (unknown) [place] % (Auto) (units ( unknown) date) 15.8 H unknown) (unknown) (no (unknown) (unknown) Mother (units (unknown) date) Stroke unknown) (unknown) (no (unknown) (unknown) Narcotic (units (unkno wn) date) dependence unknown) (unknown) (no (unknown) (unknown) Narrative (units (unkn own) date) unknown) (unknown) (no (unknown) (unknown) Neck pain, (units (unk nown) date) chronic unknown) (unknown) (no (unknown) (unknown) Neut # (Auto) (units ( unknown) date) unknown) (unknown) (no (unknown) (unknown) Neut # (Auto) (units ( unknown) date) 5400 unknown) (unknown) (no (unknown) (unknown) Neut # (Auto) (units ( unknown) date) 5700 unknown) (unknown) (no (unknown) (unknown) Neut % (Auto) (units ( unknown) date) unknown) (unknown) (no (unknown) (unknown) Neut % (Auto) (units ( unknown) date) 67.8 unknown) (unknown) (no (unknown) (unknown) Neut % (Auto) (units ( unknown) date) 68.3 unknown) (unknown) (no (unknown) (unknown) Objective (units (unkn own) date) unknown) (unknown) (no (unknown) (unknown) Oxygen Delivery (units (unknown) date) Method Room Air unknown) (unknown) (no (unknown) (unknown) Oxygen Flow Rate (units (unknown) date) 0 unknown) (unknown) (no (unknown) (unknown) Oxygen Flow Rate (units (unknown) date) 2 0 unknown) (unknown) (no (unknown) (unknown) PFSH (units (unkno wn) date) unknown) (unknown) (no (unknown) (unknown) Patient: (units (unkno wn) date) Dominic Viveros unknown) MR#: M (unknown) (no (unknown) (unknown) Plt Count (units (unkn own) date) unknown) (unknown) (no (unknown) (unknown) Plt Count 230 (units (unknown) date) unknown) (unknown) (no (unknown) (unknown) Plt Count 221 (units (unknown) date) unknown) (unknown) (no (unknown) (unknown) Postoperative (units ( unknown) date) unknown) (unknown) (no (unknown) (unknown) Potassium 4.0 (units (unknown) date) unknown) (unknown) (no (unknown) (unknown) Potassium (units (unkn own) date) unknown) (unknown) (no (unknown) (unknown) Potassium 3.8 (units (unknown) date) unknown) (unknown) (no (unknown) (unknown) Procedures: (units (un known) date) unknown) (unknown) (no (unknown) (unknown) Provider: (units (unkn own) date) Elizabet Layton P.A-C unknown) (unknown) (no (unknown) (unknown) Pulse Oximetry 96 (units (unknown) date) 92 unknown) (unknown) (no (unknown) (unknown) Pulse Rate 86 85 (units (unknown) date) unknown) (unknown) (no (unknown) (unknown) RBC (units (unkno wn) date) unknown) (unknown) (no (unknown) (unknown) RBC 3.27 L (units (u nknown) date) unknown) (unknown) (no (unknown) (unknown) RBC 3.40 L (units (un known) date) unknown) (unknown) (no (unknown) (unknown) RDW (units (unkno wn) date) unknown) (unknown) (no (unknown) (unknown) RDW 13.0 (units (unk nown) date) unknown) (unknown) (no (unknown) (unknown) RDW 13.2 (units (unkn own) date) unknown) (unknown) (no (unknown) (unknown) Refused PT (units (unk nown) date) yesterday. unknown) Hospitalist work up included CTs of head and abdomen, (unknown) (no (unknown) (unknown) Respiratory Rate (units (unknown) date) 24 18 unknown) (unknown) (no (unknown) (unknown) Result Diagrams: (units (unknown) date) unknown) (unknown) (no (unknown) (unknown) S/P CABG x 3 (units (u nknown) date) (-08/2007) unknown) (unknown) (no (unknown) (unknown) S/P cervical (units (u nknown) date) spinal fusion unknown) (unknown) (no (unknown) (unknown) S/P lumbar fusion (units (unknown) date) unknown) (unknown) (no (unknown) (unknown) Signed By: (units (unk nown) date) unknown) (unknown) (no (unknown) (unknown) Sitting in chair (units (unknown) date) with breakfast in unknown) front of him. Remains somnolent, though (unknown) (no (unknown) (unknown) Smoking Status: (units (unknown) date) Former smoker unknown) (unknown) (no (unknown) (unknown) Social History (units (unknown) date) (Reviewed 02/04/22 unknown) @ 10:10 by Yas Maravilla PA-C) (unknown) (no (unknown) (unknown) Sodium 137 (units ( unknown) date) unknown) (unknown) (no (unknown) (unknown) Sodium (units (unkno wn) date) unknown) (unknown) (no (unknown) (unknown) Sodium 137 (units (u nknown) date) unknown) (unknown) (no (unknown) (unknown) Subjective (units (unk nown) date) unknown) (unknown) (no (unknown) (unknown) Surgical History (units (unknown) date) (Reviewed 02/05/22 unknown) @ 17:55 by Evan Rangel MD) (unknown) (no (unknown) (unknown) Temperature 97.4 (units (unknown) date) F L 98 F unknown) (unknown) (no (unknown) (unknown) Time Patient (units (u nknown) date) Seen: 09:12 unknown) (unknown) (no (unknown) (unknown) Total Bilirubin (units (unknown) date) 0.7 unknown) (unknown) (no (unknown) (unknown) Total Bilirubin (units (unknown) date) unknown) (unknown) (no (unknown) (unknown) Total Bilirubin (units (unknown) date) 0.8 unknown) (unknown) (no (unknown) (unknown) Total Protein (units ( unknown) date) 6.6 unknown) (unknown) (no (unknown) (unknown) Total Protein (units ( unknown) date) unknown) (unknown) (no (unknown) (unknown) Total Protein (units ( unknown) date) 6.4 unknown) (unknown) (no (unknown) (unknown) Ventricular (units (un known) date) bigeminy unknown) (unknown) (no (unknown) (unknown) Vital Signs (units (un known) date) unknown) (unknown) (no (unknown) (unknown) WBC (units (unkno wn) date) unknown) (unknown) (no (unknown) (unknown) WBC 8.0 (units (unkn own) date) unknown) (unknown) (no (unknown) (unknown) WBC 8.4 (units (unkno wn) date) unknown) (unknown) (no (unknown) (unknown) [Embedded Image (units (unknown) date) Not Available] unknown) (unknown) (no (unknown) (unknown) alcohol intake: (units (unknown) date) current unknown) (unknown) (no (unknown) (unknown) both of which (units ( unknown) date) were unremarkable. unknown) Cooperative with exam this morning; 5/5 (unknown) (no (unknown) (unknown) household (units (unkn own) date) members: spouse unknown) (unknown) (no (unknown) (unknown) p L2-3, L3-4 (units (u nknown) date) TLIF, L2-S1 PSF w. unknown) posterior instrumentation, L1-2 laminectomy - (unknown) (no (unknown) (unknown) robot Carlos Montemayor, (units (unknown) date) MD unknown) (unknown) (no (unknown) (unknown) still easy to (units ( unknown) date) arouse and is able unknown) to stay awake throughout questions today. (unknown) (no (unknown) (unknown) strength in legs, (units (unknown) date) low back dressing unknown) CDI. (unknown) (no (unknown) (unknown) substance use (units ( unknown) date) type: does not unknown) use (unknown) (no (unknown) (unknown) work with PT (units (u nknown) date) yesterday. unknown) Result panel 104 (unknown) (no (unknown) (unknown) (no value) (units (unk nown) date) unknown) (unknown) (no (unknown) (unknown) Assessment and (units (unknown) date) Plan narrative: unknown) (unknown) (no (unknown) (unknown) Date of Service: (units (unknown) date) 02/03/22 unknown) (unknown) (no (unknown) (unknown) (no value) (units (unk nown) date) unknown) (unknown) (no (unknown) (unknown) - (units (unkno wn) date) unknown) (unknown) (no (unknown) (unknown) 02/06/22 07:06 (units (unknown) date) unknown) (unknown) (no (unknown) (unknown) [facility] (units (unknown) date) [address] unknown) [place] [address] (unknown) (no (unknown) (unknown) Laboratory (units (unk nown) date) Results - last 24 unknown) hr (unknown) (no (unknown) (unknown) Operation Date: (units (unknown) date) 02/03/22 09:15 unknown) (unknown) (no (unknown) (unknown) Procedures (units (unk nown) date) unknown) (unknown) (no (unknown) (unknown) Progress Note (units ( unknown) date) unknown) (unknown) (no (unknown) (unknown) (no value) (units (unk nown) date) unknown) (unknown) (no (unknown) (unknown) 02/05/22 02/05/22 (units (unknown) date) 02/05/22 unknown) (unknown) (no (unknown) (unknown) 02/05/22 02/06/22 (units (unknown) date) 02/06/22 unknown) (unknown) (no (unknown) (unknown) 02/06/22 (units (unkno wn) date) unknown) (unknown) (no (unknown) (unknown) 07:06 (units (unkno wn) date) unknown) (unknown) (no (unknown) (unknown) 15:01 15:01 15:01 (units (unknown) date) unknown) (unknown) (no (unknown) (unknown) 15:49 07:06 07:06 (units (unknown) date) unknown) (unknown) (no (unknown) (unknown) 02/06/22 (units (unkno wn) date) unknown) (unknown) (no (unknown) (unknown) (1) S/P lumbar (units (unknown) date) fusion: unknown) (unknown) (no (unknown) (unknown) (2) (units (unkno wn) date) Encephalopathy: unknown) (unknown) (no (unknown) (unknown) (past 8 hours): (units (unknown) date) unknown) (unknown) (no (unknown) (unknown) [id number] (units (unkn own) date) unknown) (unknown) (no (unknown) (unknown) 04:00 02/06/22 (units (unknown) date) unknown) (unknown) (no (unknown) (unknown) 08:00 (units (unkno wn) date) unknown) (unknown) (no (unknown) (unknown) ABG Base Excess (units (unknown) date) unknown) (unknown) (no (unknown) (unknown) ABG Base Excess (units (unknown) date) unknown) (unknown) (no (unknown) (unknown) ABG Base Excess (units (unknown) date) 7.0 H unknown) (unknown) (no (unknown) (unknown) ABG HCO3 (units (unkno wn) date) unknown) (unknown) (no (unknown) (unknown) ABG HCO3 (units (unkno wn) date) unknown) (unknown) (no (unknown) (unknown) ABG HCO3 32 H (units (unknown) date) unknown) (unknown) (no (unknown) (unknown) ABG O2 Saturation (units (unknown) date) unknown) (unknown) (no (unknown) (unknown) ABG O2 Saturation (units (unknown) date) unknown) (unknown) (no (unknown) (unknown) ABG O2 Saturation (units (unknown) date) 87 L unknown) (unknown) (no (unknown) (unknown) ABG Total CO2 (units ( unknown) date) unknown) (unknown) (no (unknown) (unknown) ABG Total CO2 (units ( unknown) date) unknown) (unknown) (no (unknown) (unknown) ABG Total CO2 33 (units (unknown) date) H unknown) (unknown) (no (unknown) (unknown) ABG pCO2 (units (unkno wn) date) unknown) (unknown) (no (unknown) (unknown) ABG pCO2 (units (unkno wn) date) unknown) (unknown) (no (unknown) (unknown) ABG pCO2 52.6 H (units (unknown) date) unknown) (unknown) (no (unknown) (unknown) ABG pH (units (unkno wn) date) unknown) (unknown) (no (unknown) (unknown) ABG pH (units (unkno wn) date) unknown) (unknown) (no (unknown) (unknown) ABG pH 7.39 (units (u nknown) date) unknown) (unknown) (no (unknown) (unknown) ABG pO2 (units (unkno wn) date) unknown) (unknown) (no (unknown) (unknown) ABG pO2 (units (unkno wn) date) unknown) (unknown) (no (unknown) (unknown) ABG pO2 55 L (units ( unknown) date) unknown) (unknown) (no (unknown) (unknown) ALT 36 (units (unkn own) date) unknown) (unknown) (no (unknown) (unknown) ALT (units (unkno wn) date) unknown) (unknown) (no (unknown) (unknown) ALT 31 (units (unkno wn) date) unknown) (unknown) (no (unknown) (unknown) AST 98 H (units (un known) date) unknown) (unknown) (no (unknown) (unknown) AST (units (unkno wn) date) unknown) (unknown) (no (unknown) (unknown) AST 90 H (units (unk nown) date) unknown) (unknown) (no (unknown) (unknown) Achalasia (units (unkn own) date) unknown) (unknown) (no (unknown) (unknown) Actual Procedure (units (unknown) date) Side Surgeon unknown) (unknown) (no (unknown) (unknown) Age/Sex: 76 / M (units (unknown) date) unknown) (unknown) (no (unknown) (unknown) Albumin 3.6 (units (unknown) date) unknown) (unknown) (no (unknown) (unknown) Albumin (units (unkno wn) date) unknown) (unknown) (no (unknown) (unknown) Albumin 3.6 (units ( unknown) date) unknown) (unknown) (no (unknown) (unknown) Albumin/Globulin (units (unknown) date) Ratio 1.2 unknown) (unknown) (no (unknown) (unknown) Albumin/Globulin (units (unknown) date) Ratio unknown) (unknown) (no (unknown) (unknown) Albumin/Globulin (units (unknown) date) Ratio 1.3 unknown) (unknown) (no (unknown) (unknown) Alkaline (units (unkno wn) date) Phosphatase 51 unknown) (unknown) (no (unknown) (unknown) Alkaline (units (unkno wn) date) Phosphatase unknown) (unknown) (no (unknown) (unknown) Alkaline (units (unkno wn) date) Phosphatase 47 unknown) (unknown) (no (unknown) (unknown) Anginal pain (units (u nknown) date) unknown) (unknown) (no (unknown) (unknown) Assessment + Plan (units (unknown) date) Post-op unknown) (unknown) (no (unknown) (unknown) Assessment and (units (unknown) date) plan unknown) (unknown) (no (unknown) (unknown) Asthma (units (unkno wn) date) unknown) (unknown) (no (unknown) (unknown) Atrial (units (unkno wn) date) fibrillation unknown) (unknown) (no (unknown) (unknown) BUN 15 (units (unkn own) date) unknown) (unknown) (no (unknown) (unknown) BUN (units (unkno wn) date) unknown) (unknown) (no (unknown) (unknown) BUN 14 (units (unkno wn) date) unknown) (unknown) (no (unknown) (unknown) BUN/Creatinine (units (unknown) date) Ratio 20.3 unknown) (unknown) (no (unknown) (unknown) BUN/Creatinine (units (unknown) date) Ratio unknown) (unknown) (no (unknown) (unknown) BUN/Creatinine (units (unknown) date) Ratio 19.2 unknown) (unknown) (no (unknown) (unknown) Baso # (Auto) (units ( unknown) date) unknown) (unknown) (no (unknown) (unknown) Baso # (Auto) (units ( unknown) date) 100 unknown) (unknown) (no (unknown) (unknown) Baso # (Auto) (units ( unknown) date) 100 unknown) (unknown) (no (unknown) (unknown) Baso % (Auto) (units ( unknown) date) unknown) (unknown) (no (unknown) (unknown) Baso % (Auto) (units ( unknown) date) 0.6 unknown) (unknown) (no (unknown) (unknown) Baso % (Auto) (units ( unknown) date) 0.6 unknown) (unknown) (no (unknown) (unknown) Blood Pressure (units (unknown) date) 118/67 153/75 H unknown) (unknown) (no (unknown) (unknown) COPD (chronic (units ( unknown) date) obstructive unknown) pulmonary disease) (unknown) (no (unknown) (unknown) Calcium 8.3 L (units (unknown) date) unknown) (unknown) (no (unknown) (unknown) Calcium (units (unkno wn) date) unknown) (unknown) (no (unknown) (unknown) Calcium 8.1 L (units (unknown) date) unknown) (unknown) (no (unknown) (unknown) Carbon Dioxide (units (unknown) date) 33 H unknown) (unknown) (no (unknown) (unknown) Carbon Dioxide (units (unknown) date) unknown) (unknown) (no (unknown) (unknown) Carbon Dioxide (units (unknown) date) 33 H unknown) (unknown) (no (unknown) (unknown) Cervical spinal (units (unknown) date) stenosis unknown) (unknown) (no (unknown) (unknown) Chloride 100 (units (unknown) date) unknown) (unknown) (no (unknown) (unknown) Chloride (units (unkno wn) date) unknown) (unknown) (no (unknown) (unknown) Chloride 101 (units (unknown) date) unknown) (unknown) (no (unknown) (unknown) 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 (10/22/16) (unknown) (no (unknown) (unknown) Continues to (units (u nknown) date) complain of back unknown) pain, denies leg pain. Said he was too dizzy to (unknown) (no (unknown) (unknown) Coronary artery (units (unknown) date) disease unknown) (unknown) (no (unknown) (unknown) Creatinine (units (unk nown) date) 0.74 unknown) (unknown) (no (unknown) (unknown) Creatinine (units (unk nown) date) unknown) (unknown) (no (unknown) (unknown) Creatinine 0.73 (units (unknown) date) unknown) (unknown) (no (unknown) (unknown) : 1945 (units (unknown) date) Acct:[id number] unknown) (unknown) (no (unknown) (unknown) Date Patient (units (u nknown) date) Seen: 02/06/22 unknown) (unknown) (no (unknown) (unknown) Eos # (Auto) (units (u nknown) date) unknown) (unknown) (no (unknown) (unknown) Eos # (Auto) (units (u nknown) date) 200 unknown) (unknown) (no (unknown) (unknown) Eos # (Auto) 100 (units (unknown) date) unknown) (unknown) (no (unknown) (unknown) Eos % (Auto) (units (u nknown) date) unknown) (unknown) (no (unknown) (unknown) Eos % (Auto) (units (u nknown) date) 2.0 unknown) (unknown) (no (unknown) (unknown) Eos % (Auto) 1.5 (units (unknown) date) L unknown) (unknown) (no (unknown) (unknown) Estimated GFR (units ( unknown) date) > 60 unknown) (unknown) (no (unknown) (unknown) Estimated GFR (units ( unknown) date) unknown) (unknown) (no (unknown) (unknown) Estimated GFR > (units (unknown) date) 60 unknown) (unknown) (no (unknown) (unknown) Exam (units (unkno wn) date) unknown) (unknown) (no (unknown) (unknown) Exam Narrative: (units (unknown) date) unknown) (unknown) (no (unknown) (unknown) Family History (units (unknown) date) (Reviewed 02/05/22 unknown) @ 17:55 by Evan Rangel MD) (unknown) (no (unknown) (unknown) Father (units (unkno wn) date) Hypertension unknown) (unknown) (no (unknown) (unknown) FiO2 (units (unkno wn) date) unknown) (unknown) (no (unknown) (unknown) FiO2 (units (unkno wn) date) unknown) (unknown) (no (unknown) (unknown) FiO2 21 (units (unkno wn) date) unknown) (unknown) (no (unknown) (unknown) Given current (units ( unknown) date) noncompliance w/ unknown) PT, pt will likely need SNF once he is medically (unknown) (no (unknown) (unknown) Globulin 3.0 (units (unknown) date) unknown) (unknown) (no (unknown) (unknown) Globulin (units (unkno wn) date) unknown) (unknown) (no (unknown) (unknown) Globulin 2.8 (units (unknown) date) unknown) (unknown) (no (unknown) (unknown) Glucose 117 H (units (unknown) date) unknown) (unknown) (no (unknown) (unknown) Glucose (units (unkno wn) date) unknown) (unknown) (no (unknown) (unknown) Glucose 141 H (units (unknown) date) unknown) (unknown) (no (unknown) (unknown) H/O arthroscopic (units (unknown) date) knee surgery unknown) (11/14/17) (unknown) (no (unknown) (unknown) Hct (units (unkno wn) date) unknown) (unknown) (no (unknown) (unknown) Hct 30.2 L (units (u nknown) date) unknown) (unknown) (no (unknown) (unknown) Hct 31.5 L (units (un known) date) unknown) (unknown) (no (unknown) (unknown) Hgb (units (unkno wn) date) unknown) (unknown) (no (unknown) (unknown) Hgb 10.7 L (units (u nknown) date) unknown) (unknown) (no (unknown) (unknown) Hgb 11.1 L (units (un known) date) unknown) (unknown) (no (unknown) (unknown) History of aortic (units (unknown) date) dissection unknown) () (unknown) (no (unknown) (unknown) History of (units (unk nown) date) arthroplasty of unknown) left knee (05/24/19) (unknown) (no (unknown) (unknown) History of (units (unk nown) date) arthroplasty of unknown) right knee (unknown) (no (unknown) (unknown) History of (units (unk nown) date) bilateral total unknown) hip arthroplasty (unknown) (no (unknown) (unknown) History of (units (unk nown) date) cardiac cath unknown) () (unknown) (no (unknown) (unknown) History of (units (unk nown) date) esophageal surgery unknown) (unknown) (no (unknown) (unknown) History of (units (unk nown) date) incision and unknown) drainage () (unknown) (no (unknown) (unknown) History of prior (units (unknown) date) ablation treatment unknown) () (unknown) (no (unknown) (unknown) History of (units (unk nown) date) surgery unknown) (unknown) (no (unknown) (unknown) Hx of (units (unkno wn) date) cholecystectomy unknown) (unknown) (no (unknown) (unknown) Hx of hernia (units (u nknown) date) repair unknown) (unknown) (no (unknown) (unknown) Hx of sinus (units (un known) date) surgery unknown) (unknown) (no (unknown) (unknown) Hypertension (units (u nknown) date) unknown) (unknown) (no (unknown) (unknown) Interval history: (units (unknown) date) unknown) (unknown) (no (unknown) (unknown) Ischemic (units (unkno wn) date) cardiomyopathy unknown) (unknown) (no (unknown) (unknown) Labs (units (unkno wn) date) unknown) (unknown) (no (unknown) (unknown) Labs: (units (unkno wn) date) unknown) (unknown) (no (unknown) (unknown) Lactate (units (unkno wn) date) unknown) (unknown) (no (unknown) (unknown) Lactate 1.4 (units (unknown) date) unknown) (unknown) (no (unknown) (unknown) Lactate 0.8 (units (u nknown) date) unknown) (unknown) (no (unknown) (unknown) Lymph # (Auto) (units (unknown) date) unknown) (unknown) (no (unknown) (unknown) Lymph # (Auto) (units (unknown) date) 1200 unknown) (unknown) (no (unknown) (unknown) Lymph # (Auto) (units (unknown) date) 1200 unknown) (unknown) (no (unknown) (unknown) Lymph % (Auto) (units (unknown) date) unknown) (unknown) (no (unknown) (unknown) Lymph % (Auto) (units (unknown) date) 15.4 L unknown) (unknown) (no (unknown) (unknown) Lymph % (Auto) (units (unknown) date) 13.8 L unknown) (unknown) (no (unknown) (unknown) MCH (units (unkno wn) date) unknown) (unknown) (no (unknown) (unknown) MCH 32.8 (units (unk nown) date) unknown) (unknown) (no (unknown) (unknown) MCH 32.7 (units (unkn own) date) unknown) (unknown) (no (unknown) (unknown) MCHC (units (unkno wn) date) unknown) (unknown) (no (unknown) (unknown) MCHC 35.5 (units (un known) date) unknown) (unknown) (no (unknown) (unknown) MCHC 35.2 (units (unk nown) date) unknown) (unknown) (no (unknown) (unknown) MCV (units (unkno wn) date) unknown) (unknown) (no (unknown) (unknown) MCV 92.4 (units (unk nown) date) unknown) (unknown) (no (unknown) (unknown) MCV 92.8 (units (unkn own) date) unknown) (unknown) (no (unknown) (unknown) Medical History (units (unknown) date) (Reviewed 02/05/22 unknown) @ 17:55 by Evan Rangel MD) (unknown) (no (unknown) (unknown) [place] # (Auto) (units ( unknown) date) unknown) (unknown) (no (unknown) (unknown) [place] # (Auto) (units ( unknown) date) 1100 H unknown) (unknown) (no (unknown) (unknown) [place] # (Auto) (units ( unknown) date) 1300 H unknown) (unknown) (no (unknown) (unknown) [place] % (Auto) (units ( unknown) date) unknown) (unknown) (no (unknown) (unknown) [place] % (Auto) (units ( unknown) date) 14.2 H unknown) (unknown) (no (unknown) (unknown) [place] % (Auto) (units ( unknown) date) 15.8 H unknown) (unknown) (no (unknown) (unknown) Mother (units (unknown) date) Stroke unknown) (unknown) (no (unknown) (unknown) Narcotic (units (unkno wn) date) dependence unknown) (unknown) (no (unknown) (unknown) Narrative (units (unkn own) date) unknown) (unknown) (no (unknown) (unknown) Neck pain, (units (unk nown) date) chronic unknown) (unknown) (no (unknown) (unknown) Neut # (Auto) (units ( unknown) date) unknown) (unknown) (no (unknown) (unknown) Neut # (Auto) (units ( unknown) date) 5400 unknown) (unknown) (no (unknown) (unknown) Neut # (Auto) (units ( unknown) date) 5700 unknown) (unknown) (no (unknown) (unknown) Neut % (Auto) (units ( unknown) date) unknown) (unknown) (no (unknown) (unknown) Neut % (Auto) (units ( unknown) date) 67.8 unknown) (unknown) (no (unknown) (unknown) Neut % (Auto) (units ( unknown) date) 68.3 unknown) (unknown) (no (unknown) (unknown) Objective (units (unkn own) date) unknown) (unknown) (no (unknown) (unknown) Oxygen Delivery (units (unknown) date) Method Room Air unknown) (unknown) (no (unknown) (unknown) Oxygen Flow Rate (units (unknown) date) 0 unknown) (unknown) (no (unknown) (unknown) Oxygen Flow Rate (units (unknown) date) 2 0 unknown) (unknown) (no (unknown) (unknown) PFSH (units (unkno wn) date) unknown) (unknown) (no (unknown) (unknown) Patient: (units (unkno wn) date) Dominic Viveros unknown) MR#: M (unknown) (no (unknown) (unknown) Plt Count (units (unkn own) date) unknown) (unknown) (no (unknown) (unknown) Plt Count 230 (units (unknown) date) unknown) (unknown) (no (unknown) (unknown) Plt Count 221 (units (unknown) date) unknown) (unknown) (no (unknown) (unknown) Postoperative (units ( unknown) date) unknown) (unknown) (no (unknown) (unknown) Postoperative (units ( unknown) date) day: 3 unknown) (unknown) (no (unknown) (unknown) Potassium 4.0 (units (unknown) date) unknown) (unknown) (no (unknown) (unknown) Potassium (units (unkn own) date) unknown) (unknown) (no (unknown) (unknown) Potassium 3.8 (units (unknown) date) unknown) (unknown) (no (unknown) (unknown) Procedures: (units (un known) date) unknown) (unknown) (no (unknown) (unknown) Provider: (units (unkn own) date) Elizabet Layton P.A-C unknown) (unknown) (no (unknown) (unknown) Pulse Oximetry 96 (units (unknown) date) 92 unknown) (unknown) (no (unknown) (unknown) Pulse Rate 86 85 (units (unknown) date) unknown) (unknown) (no (unknown) (unknown) RBC (units (unkno wn) date) unknown) (unknown) (no (unknown) (unknown) RBC 3.27 L (units (u nknown) date) unknown) (unknown) (no (unknown) (unknown) RBC 3.40 L (units (un known) date) unknown) (unknown) (no (unknown) (unknown) RDW (units (unkno wn) date) unknown) (unknown) (no (unknown) (unknown) RDW 13.0 (units (unk nown) date) unknown) (unknown) (no (unknown) (unknown) RDW 13.2 (units (unkn own) date) unknown) (unknown) (no (unknown) (unknown) Refused PT (units (unk nown) date) yesterday. unknown) Hospitalist work up included CTs of head and abdomen, (unknown) (no (unknown) (unknown) Respiratory Rate (units (unknown) date) 24 18 unknown) (unknown) (no (unknown) (unknown) Result Diagrams: (units (unknown) date) unknown) (unknown) (no (unknown) (unknown) S/P CABG x 3 (units (u nknown) date) () unknown) (unknown) (no (unknown) (unknown) S/P cervical (units (u nknown) date) spinal fusion unknown) (unknown) (no (unknown) (unknown) S/P lumbar fusion (units (unknown) date) unknown) (unknown) (no (unknown) (unknown) Signed By: (units (unk nown) date) unknown) (unknown) (no (unknown) (unknown) Sitting in chair (units (unknown) date) with breakfast in unknown) front of him. Remains somnolent, though (unknown) (no (unknown) (unknown) Smoking Status: (units (unknown) date) Former smoker unknown) (unknown) (no (unknown) (unknown) Social History (units (unknown) date) (Reviewed 02/04/22 unknown) @ 10:10 by Yas Maravilla PA-C) (unknown) (no (unknown) (unknown) Sodium 137 (units ( unknown) date) unknown) (unknown) (no (unknown) (unknown) Sodium (units (unkno wn) date) unknown) (unknown) (no (unknown) (unknown) Sodium 137 (units (u nknown) date) unknown) (unknown) (no (unknown) (unknown) Spoke w/ (units (un known) date) Claire this unknown) morning; repeating UA. Blood cx pending. Appreciate (unknown) (no (unknown) (unknown) Subjective (units (unk nown) date) unknown) (unknown) (no (unknown) (unknown) Surgical History (units (unknown) date) (Reviewed 02/05/22 unknown) @ 17:55 by Evan Rangel MD) (unknown) (no (unknown) (unknown) Temperature 97.4 (units (unknown) date) F L 98 F unknown) (unknown) (no (unknown) (unknown) Time Patient (units (u nknown) date) Seen: 09:12 unknown) (unknown) (no (unknown) (unknown) Total Bilirubin (units (unknown) date) 0.7 unknown) (unknown) (no (unknown) (unknown) Total Bilirubin (units (unknown) date) unknown) (unknown) (no (unknown) (unknown) Total Bilirubin (units (unknown) date) 0.8 unknown) (unknown) (no (unknown) (unknown) Total Protein (units ( unknown) date) 6.6 unknown) (unknown) (no (unknown) (unknown) Total Protein (units ( unknown) date) unknown) (unknown) (no (unknown) (unknown) Total Protein (units ( unknown) date) 6.4 unknown) (unknown) (no (unknown) (unknown) Ventricular (units (un known) date) bigeminy unknown) (unknown) (no (unknown) (unknown) Vital Signs (units (un known) date) unknown) (unknown) (no (unknown) (unknown) WBC (units (unkno wn) date) unknown) (unknown) (no (unknown) (unknown) WBC 8.0 (units (unkn own) date) unknown) (unknown) (no (unknown) (unknown) WBC 8.4 (units (unkno wn) date) unknown) (unknown) (no (unknown) (unknown) [Embedded Image (units (unknown) date) Not Available] unknown) (unknown) (no (unknown) (unknown) alcohol intake: (units (unknown) date) current unknown) (unknown) (no (unknown) (unknown) both of which (units ( unknown) date) were unremarkable. unknown) Cooperative with exam this morning; 5/5 (unknown) (no (unknown) (unknown) cleared. (units (unkno wn) date) unknown) (unknown) (no (unknown) (unknown) help with this (units (unknown) date) patient. unknown) (unknown) (no (unknown) (unknown) household (units (unkn own) date) members: spouse unknown) (unknown) (no (unknown) (unknown) p L2-3, L3-4 (units (u nknown) date) TLIF, L2-S1 PSF w. unknown) posterior instrumentation, L1-2 laminectomy - (unknown) (no (unknown) (unknown) robot Carlos Montemayor, (units (unknown) date) unknown) (unknown) (no (unknown) (unknown) still easy to (units ( unknown) date) arouse and is able unknown) to stay awake throughout questions today. (unknown) (no (unknown) (unknown) strength in legs, (units (unknown) date) low back dressing unknown) CDI. (unknown) (no (unknown) (unknown) substance use (units ( unknown) date) type: does not unknown) use (unknown) (no (unknown) (unknown) work with PT (units (u nknown) date) yesterday. unknown) Result panel 105 (unknown) (no (unknown) (unknown) (no value) (units (unk nown) date) unknown) (unknown) (no (unknown) (unknown) Assessment and (units (unknown) date) Plan narrative: unknown) (unknown) (no (unknown) (unknown) Date of Service: (units (unknown) date) 02/03/22 unknown) (unknown) (no (unknown) (unknown) (no value) (units (unk nown) date) unknown) (unknown) (no (unknown) (unknown) - (units (unkno wn) date) unknown) (unknown) (no (unknown) (unknown) 02/06/22 07:06 (units (unknown) date) unknown) (unknown) (no (unknown) (unknown) 02/06/22 0921 (units ( unknown) date) unknown) (unknown) (no (unknown) (unknown) [facility] (units (unknown) date) [address] unknown) [place] [id number] (unknown) (no (unknown) (unknown) Laboratory (units (unk nown) date) Results - last 24 unknown) hr (unknown) (no (unknown) (unknown) Operation Date: (units (unknown) date) 02/03/22 09:15 unknown) (unknown) (no (unknown) (unknown) Procedures (units (unk nown) date) unknown) (unknown) (no (unknown) (unknown) Progress Note (units ( unknown) date) unknown) (unknown) (no (unknown) (unknown) (no value) (units (unk nown) date) unknown) (unknown) (no (unknown) (unknown) 02/05/22 02/05/22 (units (unknown) date) 02/05/22 unknown) (unknown) (no (unknown) (unknown) 02/05/22 02/06/22 (units (unknown) date) 02/06/22 unknown) (unknown) (no (unknown) (unknown) 02/06/22 (units (unkno wn) date) unknown) (unknown) (no (unknown) (unknown) 07:06 (units (unkno wn) date) unknown) (unknown) (no (unknown) (unknown) 15:01 15:01 15:01 (units (unknown) date) unknown) (unknown) (no (unknown) (unknown) 15:49 07:06 07:06 (units (unknown) date) unknown) (unknown) (no (unknown) (unknown) 02/06/22 (units (unkno wn) date) unknown) (unknown) (no (unknown) (unknown) (1) S/P lumbar (units (unknown) date) fusion: unknown) (unknown) (no (unknown) (unknown) (2) (units (unkno wn) date) Encephalopathy: unknown) (unknown) (no (unknown) (unknown) (past 8 hours): (units (unknown) date) unknown) (unknown) (no (unknown) (unknown) [id number] (units (unkn own) date) unknown) (unknown) (no (unknown) (unknown) 04:00 02/06/22 (units (unknown) date) unknown) (unknown) (no (unknown) (unknown) 08:00 (units (unkno wn) date) unknown) (unknown) (no (unknown) (unknown) ABG Base Excess (units (unknown) date) unknown) (unknown) (no (unknown) (unknown) ABG Base Excess (units (unknown) date) unknown) (unknown) (no (unknown) (unknown) ABG Base Excess (units (unknown) date) 7.0 H unknown) (unknown) (no (unknown) (unknown) ABG HCO3 (units (unkno wn) date) unknown) (unknown) (no (unknown) (unknown) ABG HCO3 (units (unkno wn) date) unknown) (unknown) (no (unknown) (unknown) ABG HCO3 32 H (units (unknown) date) unknown) (unknown) (no (unknown) (unknown) ABG O2 Saturation (units (unknown) date) unknown) (unknown) (no (unknown) (unknown) ABG O2 Saturation (units (unknown) date) unknown) (unknown) (no (unknown) (unknown) ABG O2 Saturation (units (unknown) date) 87 L unknown) (unknown) (no (unknown) (unknown) ABG Total CO2 (units ( unknown) date) unknown) (unknown) (no (unknown) (unknown) ABG Total CO2 (units ( unknown) date) unknown) (unknown) (no (unknown) (unknown) ABG Total CO2 33 (units (unknown) date) H unknown) (unknown) (no (unknown) (unknown) ABG pCO2 (units (unkno wn) date) unknown) (unknown) (no (unknown) (unknown) ABG pCO2 (units (unkno wn) date) unknown) (unknown) (no (unknown) (unknown) ABG pCO2 52.6 H (units (unknown) date) unknown) (unknown) (no (unknown) (unknown) ABG pH (units (unkno wn) date) unknown) (unknown) (no (unknown) (unknown) ABG pH (units (unkno wn) date) unknown) (unknown) (no (unknown) (unknown) ABG pH 7.39 (units (u nknown) date) unknown) (unknown) (no (unknown) (unknown) ABG pO2 (units (unkno wn) date) unknown) (unknown) (no (unknown) (unknown) ABG pO2 (units (unkno wn) date) unknown) (unknown) (no (unknown) (unknown) ABG pO2 55 L (units ( unknown) date) unknown) (unknown) (no (unknown) (unknown) ALT 36 (units (unkn own) date) unknown) (unknown) (no (unknown) (unknown) ALT (units (unkno wn) date) unknown) (unknown) (no (unknown) (unknown) ALT 31 (units (unkno wn) date) unknown) (unknown) (no (unknown) (unknown) AST 98 H (units (un known) date) unknown) (unknown) (no (unknown) (unknown) AST (units (unkno wn) date) unknown) (unknown) (no (unknown) (unknown) AST 90 H (units (unk nown) date) unknown) (unknown) (no (unknown) (unknown) Achalasia (units (unkn own) date) unknown) (unknown) (no (unknown) (unknown) Actual Procedure (units (unknown) date) Side Surgeon unknown) (unknown) (no (unknown) (unknown) Age/Sex: 76 / M (units (unknown) date) unknown) (unknown) (no (unknown) (unknown) Albumin 3.6 (units (unknown) date) unknown) (unknown) (no (unknown) (unknown) Albumin (units (unkno wn) date) unknown) (unknown) (no (unknown) (unknown) Albumin 3.6 (units ( unknown) date) unknown) (unknown) (no (unknown) (unknown) Albumin/Globulin (units (unknown) date) Ratio 1.2 unknown) (unknown) (no (unknown) (unknown) Albumin/Globulin (units (unknown) date) Ratio unknown) (unknown) (no (unknown) (unknown) Albumin/Globulin (units (unknown) date) Ratio 1.3 unknown) (unknown) (no (unknown) (unknown) Alkaline (units (unkno wn) date) Phosphatase 51 unknown) (unknown) (no (unknown) (unknown) Alkaline (units (unkno wn) date) Phosphatase unknown) (unknown) (no (unknown) (unknown) Alkaline (units (unkno wn) date) Phosphatase 47 unknown) (unknown) (no (unknown) (unknown) Anginal pain (units (u nknown) date) unknown) (unknown) (no (unknown) (unknown) Assessment + Plan (units (unknown) date) Post-op unknown) (unknown) (no (unknown) (unknown) Assessment and (units (unknown) date) plan unknown) (unknown) (no (unknown) (unknown) Asthma (units (unkno wn) date) unknown) (unknown) (no (unknown) (unknown) Atrial (units (unkno wn) date) fibrillation unknown) (unknown) (no (unknown) (unknown) BUN 15 (units (unkn own) date) unknown) (unknown) (no (unknown) (unknown) BUN (units (unkno wn) date) unknown) (unknown) (no (unknown) (unknown) BUN 14 (units (unkno wn) date) unknown) (unknown) (no (unknown) (unknown) BUN/Creatinine (units (unknown) date) Ratio 20.3 unknown) (unknown) (no (unknown) (unknown) BUN/Creatinine (units (unknown) date) Ratio unknown) (unknown) (no (unknown) (unknown) BUN/Creatinine (units (unknown) date) Ratio 19.2 unknown) (unknown) (no (unknown) (unknown) Baso # (Auto) (units ( unknown) date) unknown) (unknown) (no (unknown) (unknown) Baso # (Auto) (units ( unknown) date) 100 unknown) (unknown) (no (unknown) (unknown) Baso # (Auto) (units ( unknown) date) 100 unknown) (unknown) (no (unknown) (unknown) Baso % (Auto) (units ( unknown) date) unknown) (unknown) (no (unknown) (unknown) Baso % (Auto) (units ( unknown) date) 0.6 unknown) (unknown) (no (unknown) (unknown) Baso % (Auto) (units ( unknown) date) 0.6 unknown) (unknown) (no (unknown) (unknown) Blood Pressure (units (unknown) date) 118/67 153/75 H unknown) (unknown) (no (unknown) (unknown) COPD (chronic (units ( unknown) date) obstructive unknown) pulmonary disease) (unknown) (no (unknown) (unknown) Calcium 8.3 L (units (unknown) date) unknown) (unknown) (no (unknown) (unknown) Calcium (units (unkno wn) date) unknown) (unknown) (no (unknown) (unknown) Calcium 8.1 L (units (unknown) date) unknown) (unknown) (no (unknown) (unknown) Carbon Dioxide (units (unknown) date) 33 H unknown) (unknown) (no (unknown) (unknown) Carbon Dioxide (units (unknown) date) unknown) (unknown) (no (unknown) (unknown) Carbon Dioxide (units (unknown) date) 33 H unknown) (unknown) (no (unknown) (unknown) Cervical spinal (units (unknown) date) stenosis unknown) (unknown) (no (unknown) (unknown) Chloride 100 (units (unknown) date) unknown) (unknown) (no (unknown) (unknown) Chloride (units (unkno wn) date) unknown) (unknown) (no (unknown) (unknown) Chloride 101 (units (unknown) date) unknown) (unknown) (no (unknown) (unknown) 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 (10/22/16) (unknown) (no (unknown) (unknown) Continues to (units (u nknown) date) complain of back unknown) pain, denies leg pain. Said he was too dizzy to (unknown) (no (unknown) (unknown) Coronary artery (units (unknown) date) disease unknown) (unknown) (no (unknown) (unknown) Creatinine (units (unk nown) date) 0.74 unknown) (unknown) (no (unknown) (unknown) Creatinine (units (unk nown) date) unknown) (unknown) (no (unknown) (unknown) Creatinine 0.73 (units (unknown) date) unknown) (unknown) (no (unknown) (unknown) : 1945 (units (unknown) date) Acct:[id number] unknown) (unknown) (no (unknown) (unknown) Date Patient (units (u nknown) date) Seen: 02/06/22 unknown) (unknown) (no (unknown) (unknown) Eos # (Auto) (units (u nknown) date) unknown) (unknown) (no (unknown) (unknown) Eos # (Auto) (units (u nknown) date) 200 unknown) (unknown) (no (unknown) (unknown) Eos # (Auto) 100 (units (unknown) date) unknown) (unknown) (no (unknown) (unknown) Eos % (Auto) (units (u nknown) date) unknown) (unknown) (no (unknown) (unknown) Eos % (Auto) (units (u nknown) date) 2.0 unknown) (unknown) (no (unknown) (unknown) Eos % (Auto) 1.5 (units (unknown) date) L unknown) (unknown) (no (unknown) (unknown) Estimated GFR (units ( unknown) date) > 60 unknown) (unknown) (no (unknown) (unknown) Estimated GFR (units ( unknown) date) unknown) (unknown) (no (unknown) (unknown) Estimated GFR > (units (unknown) date) 60 unknown) (unknown) (no (unknown) (unknown) Exam (units (unkno wn) date) unknown) (unknown) (no (unknown) (unknown) Exam Narrative: (units (unknown) date) unknown) (unknown) (no (unknown) (unknown) Family History (units (unknown) date) (Reviewed 02/05/22 unknown) @ 17:55 by Evan Rangel MD) (unknown) (no (unknown) (unknown) Father (units (unkno wn) date) Hypertension unknown) (unknown) (no (unknown) (unknown) FiO2 (units (unkno wn) date) unknown) (unknown) (no (unknown) (unknown) FiO2 (units (unkno wn) date) unknown) (unknown) (no (unknown) (unknown) FiO2 21 (units (unkno wn) date) unknown) (unknown) (no (unknown) (unknown) Given current (units ( unknown) date) noncompliance w/ unknown) PT, pt will likely need SNF once he is medically (unknown) (no (unknown) (unknown) Globulin 3.0 (units (unknown) date) unknown) (unknown) (no (unknown) (unknown) Globulin (units (unkno wn) date) unknown) (unknown) (no (unknown) (unknown) Globulin 2.8 (units (unknown) date) unknown) (unknown) (no (unknown) (unknown) Glucose 117 H (units (unknown) date) unknown) (unknown) (no (unknown) (unknown) Glucose (units (unkno wn) date) unknown) (unknown) (no (unknown) (unknown) Glucose 141 H (units (unknown) date) unknown) (unknown) (no (unknown) (unknown) H/O arthroscopic (units (unknown) date) knee surgery unknown) (11/14/17) (unknown) (no (unknown) (unknown) Hct (units (unkno wn) date) unknown) (unknown) (no (unknown) (unknown) Hct 30.2 L (units (u nknown) date) unknown) (unknown) (no (unknown) (unknown) Hct 31.5 L (units (un known) date) unknown) (unknown) (no (unknown) (unknown) Hgb (units (unkno wn) date) unknown) (unknown) (no (unknown) (unknown) Hgb 10.7 L (units (u nknown) date) unknown) (unknown) (no (unknown) (unknown) Hgb 11.1 L (units (un known) date) unknown) (unknown) (no (unknown) (unknown) History of aortic (units (unknown) date) dissection unknown) () (unknown) (no (unknown) (unknown) History of (units (unk nown) date) arthroplasty of unknown) left knee (05/24/19) (unknown) (no (unknown) (unknown) History of (units (unk nown) date) arthroplasty of unknown) right knee (unknown) (no (unknown) (unknown) History of (units (unk nown) date) bilateral total unknown) hip arthroplasty (unknown) (no (unknown) (unknown) History of (units (unk nown) date) cardiac cath unknown) () (unknown) (no (unknown) (unknown) History of (units (unk nown) date) esophageal surgery unknown) (unknown) (no (unknown) (unknown) History of (units (unk nown) date) incision and unknown) drainage () (unknown) (no (unknown) (unknown) History of prior (units (unknown) date) ablation treatment unknown) () (unknown) (no (unknown) (unknown) History of (units (unk nown) date) surgery unknown) (unknown) (no (unknown) (unknown) Hx of (units (unkno wn) date) cholecystectomy unknown) (unknown) (no (unknown) (unknown) Hx of hernia (units (u nknown) date) repair unknown) (unknown) (no (unknown) (unknown) Hx of sinus (units (un known) date) surgery unknown) (unknown) (no (unknown) (unknown) Hypertension (units (u nknown) date) unknown) (unknown) (no (unknown) (unknown) Interval history: (units (unknown) date) unknown) (unknown) (no (unknown) (unknown) Ischemic (units (unkno wn) date) cardiomyopathy unknown) (unknown) (no (unknown) (unknown) Labs (units (unkno wn) date) unknown) (unknown) (no (unknown) (unknown) Labs: (units (unkno wn) date) unknown) (unknown) (no (unknown) (unknown) Lactate (units (unkno wn) date) unknown) (unknown) (no (unknown) (unknown) Lactate 1.4 (units (unknown) date) unknown) (unknown) (no (unknown) (unknown) Lactate 0.8 (units (u nknown) date) unknown) (unknown) (no (unknown) (unknown) Lymph # (Auto) (units (unknown) date) unknown) (unknown) (no (unknown) (unknown) Lymph # (Auto) (units (unknown) date) 1200 unknown) (unknown) (no (unknown) (unknown) Lymph # (Auto) (units (unknown) date) 1200 unknown) (unknown) (no (unknown) (unknown) Lymph % (Auto) (units (unknown) date) unknown) (unknown) (no (unknown) (unknown) Lymph % (Auto) (units (unknown) date) 15.4 L unknown) (unknown) (no (unknown) (unknown) Lymph % (Auto) (units (unknown) date) 13.8 L unknown) (unknown) (no (unknown) (unknown) MCH (units (unkno wn) date) unknown) (unknown) (no (unknown) (unknown) MCH 32.8 (units (unk nown) date) unknown) (unknown) (no (unknown) (unknown) MCH 32.7 (units (unkn own) date) unknown) (unknown) (no (unknown) (unknown) MCHC (units (unkno wn) date) unknown) (unknown) (no (unknown) (unknown) MCHC 35.5 (units (un known) date) unknown) (unknown) (no (unknown) (unknown) MCHC 35.2 (units (unk nown) date) unknown) (unknown) (no (unknown) (unknown) MCV (units (unkno wn) date) unknown) (unknown) (no (unknown) (unknown) MCV 92.4 (units (unk nown) date) unknown) (unknown) (no (unknown) (unknown) MCV 92.8 (units (unkn own) date) unknown) (unknown) (no (unknown) (unknown) Medical History (units (unknown) date) (Reviewed 02/05/22 unknown) @ 17:55 by Evan Rangel MD) (unknown) (no (unknown) (unknown) [place] # (Auto) (units ( unknown) date) unknown) (unknown) (no (unknown) (unknown) [place] # (Auto) (units ( unknown) date) 1100 H unknown) (unknown) (no (unknown) (unknown) [place] # (Auto) (units ( unknown) date) 1300 H unknown) (unknown) (no (unknown) (unknown) [place] % (Auto) (units ( unknown) date) unknown) (unknown) (no (unknown) (unknown) [place] % (Auto) (units ( unknown) date) 14.2 H unknown) (unknown) (no (unknown) (unknown) [place] % (Auto) (units ( unknown) date) 15.8 H unknown) (unknown) (no (unknown) (unknown) Mother (units (unknown) date) Stroke unknown) (unknown) (no (unknown) (unknown) Narcotic (units (unkno wn) date) dependence unknown) (unknown) (no (unknown) (unknown) Narrative (units (unkn own) date) unknown) (unknown) (no (unknown) (unknown) Neck pain, (units (unk nown) date) chronic unknown) (unknown) (no (unknown) (unknown) Neut # (Auto) (units ( unknown) date) unknown) (unknown) (no (unknown) (unknown) Neut # (Auto) (units ( unknown) date) 5400 unknown) (unknown) (no (unknown) (unknown) Neut # (Auto) (units ( unknown) date) 5700 unknown) (unknown) (no (unknown) (unknown) Neut % (Auto) (units ( unknown) date) unknown) (unknown) (no (unknown) (unknown) Neut % (Auto) (units ( unknown) date) 67.8 unknown) (unknown) (no (unknown) (unknown) Neut % (Auto) (units ( unknown) date) 68.3 unknown) (unknown) (no (unknown) (unknown) Objective (units (unkn own) date) unknown) (unknown) (no (unknown) (unknown) Oxygen Delivery (units (unknown) date) Method Room Air unknown) (unknown) (no (unknown) (unknown) Oxygen Flow Rate (units (unknown) date) 0 unknown) (unknown) (no (unknown) (unknown) Oxygen Flow Rate (units (unknown) date) 2 0 unknown) (unknown) (no (unknown) (unknown) PFSH (units (unkno wn) date) unknown) (unknown) (no (unknown) (unknown) Patient: (units (unkno wn) date) Dominic Viveros unknown) MR#: M (unknown) (no (unknown) (unknown) Plt Count (units (unkn own) date) unknown) (unknown) (no (unknown) (unknown) Plt Count 230 (units (unknown) date) unknown) (unknown) (no (unknown) (unknown) Plt Count 221 (units (unknown) date) unknown) (unknown) (no (unknown) (unknown) Postoperative (units ( unknown) date) unknown) (unknown) (no (unknown) (unknown) Postoperative (units ( unknown) date) day: 3 unknown) (unknown) (no (unknown) (unknown) Potassium 4.0 (units (unknown) date) unknown) (unknown) (no (unknown) (unknown) Potassium (units (unkn own) date) unknown) (unknown) (no (unknown) (unknown) Potassium 3.8 (units (unknown) date) unknown) (unknown) (no (unknown) (unknown) Procedures: (units (un known) date) unknown) (unknown) (no (unknown) (unknown) Provider: (units (unkn own) date) Elizabet Layton P.A-C unknown) (unknown) (no (unknown) (unknown) Pulse Oximetry 96 (units (unknown) date) 92 unknown) (unknown) (no (unknown) (unknown) Pulse Rate 86 85 (units (unknown) date) unknown) (unknown) (no (unknown) (unknown) RBC (units (unkno wn) date) unknown) (unknown) (no (unknown) (unknown) RBC 3.27 L (units (u nknown) date) unknown) (unknown) (no (unknown) (unknown) RBC 3.40 L (units (un known) date) unknown) (unknown) (no (unknown) (unknown) RDW (units (unkno wn) date) unknown) (unknown) (no (unknown) (unknown) RDW 13.0 (units (unk nown) date) unknown) (unknown) (no (unknown) (unknown) RDW 13.2 (units (unkn own) date) unknown) (unknown) (no (unknown) (unknown) Refused PT (units (unk nown) date) yesterday. unknown) Hospitalist work up included CTs of head and abdomen, (unknown) (no (unknown) (unknown) Respiratory Rate (units (unknown) date) 24 18 unknown) (unknown) (no (unknown) (unknown) Result Diagrams: (units (unknown) date) unknown) (unknown) (no (unknown) (unknown) S/P CABG x 3 (units (u nknown) date) (-08/2007) unknown) (unknown) (no (unknown) (unknown) S/P cervical (units (u nknown) date) spinal fusion unknown) (unknown) (no (unknown) (unknown) S/P lumbar fusion (units (unknown) date) unknown) (unknown) (no (unknown) (unknown) Signed (units (unkno wn) date) By:<Electronically unknown) signed by Elizabet Cadet Beh> (unknown) (no (unknown) (unknown) Sitting in chair (units (unknown) date) with breakfast in unknown) front of him. Remains somnolent, though (unknown) (no (unknown) (unknown) Smoking Status: (units (unknown) date) Former smoker unknown) (unknown) (no (unknown) (unknown) Social History (units (unknown) date) (Reviewed 02/04/22 unknown) @ 10:10 by Yas Maravilla PA-C) (unknown) (no (unknown) (unknown) Sodium 137 (units ( unknown) date) unknown) (unknown) (no (unknown) (unknown) Sodium (units (unkno wn) date) unknown) (unknown) (no (unknown) (unknown) Sodium 137 (units (u nknown) date) unknown) (unknown) (no (unknown) (unknown) Spoke w/ Dr (units (un known) date) Claire this unknown) morning; repeating UA. Blood cx pending. Appreciate (unknown) (no (unknown) (unknown) Subjective (units (unk nown) date) unknown) (unknown) (no (unknown) (unknown) Surgical History (units (unknown) date) (Reviewed 02/05/22 unknown) @ 17:55 by Evan Rangel MD) (unknown) (no (unknown) (unknown) Temperature 97.4 (units (unknown) date) F L 98 F unknown) (unknown) (no (unknown) (unknown) Time Patient (units (u nknown) date) Seen: 09:12 unknown) (unknown) (no (unknown) (unknown) Total Bilirubin (units (unknown) date) 0.7 unknown) (unknown) (no (unknown) (unknown) Total Bilirubin (units (unknown) date) unknown) (unknown) (no (unknown) (unknown) Total Bilirubin (units (unknown) date) 0.8 unknown) (unknown) (no (unknown) (unknown) Total Protein (units ( unknown) date) 6.6 unknown) (unknown) (no (unknown) (unknown) Total Protein (units ( unknown) date) unknown) (unknown) (no (unknown) (unknown) Total Protein (units ( unknown) date) 6.4 unknown) (unknown) (no (unknown) (unknown) Ventricular (units (un known) date) bigeminy unknown) (unknown) (no (unknown) (unknown) Vital Signs (units (un known) date) unknown) (unknown) (no (unknown) (unknown) WBC (units (unkno wn) date) unknown) (unknown) (no (unknown) (unknown) WBC 8.0 (units (unkn own) date) unknown) (unknown) (no (unknown) (unknown) WBC 8.4 (units (unkno wn) date) unknown) (unknown) (no (unknown) (unknown) [Embedded Image (units (unknown) date) Not Available] unknown) (unknown) (no (unknown) (unknown) alcohol intake: (units (unknown) date) current unknown) (unknown) (no (unknown) (unknown) both of which (units ( unknown) date) were unremarkable. unknown) Cooperative with exam this morning; 5/5 (unknown) (no (unknown) (unknown) cleared. (units (unkno wn) date) unknown) (unknown) (no (unknown) (unknown) help with this (units (unknown) date) patient. unknown) (unknown) (no (unknown) (unknown) household (units (unkn own) date) members: spouse unknown) (unknown) (no (unknown) (unknown) p L2-3, L3-4 (units (u nknown) date) TLIF, L2-S1 PSF w. unknown) posterior instrumentation, L1-2 laminectomy - (unknown) (no (unknown) (unknown) robot Carlos Montemayor, (units (unknown) date) MD unknown) (unknown) (no (unknown) (unknown) still easy to (units ( unknown) date) arouse and is able unknown) to stay awake throughout questions today. (unknown) (no (unknown) (unknown) strength in legs, (units (unknown) date) low back dressing unknown) CDI. (unknown) (no (unknown) (unknown) substance use (units ( unknown) date) type: does not unknown) use (unknown) (no (unknown) (unknown) work with PT (units (u nknown) date) yesterday. BPs unknown) appear to be normal. Result panel 106 (unknown) (no date) (unknown) (unknown) 0.2 E.U./dL (unkn own) (unknown) (no date) (unknown) (unknown) 1+ (units (unkn own) unknown) (unknown) (no date) (unknown) (unknown) 1.010 (units (unkn own) unknown) (unknown) (no date) (unknown) (unknown) 2+ (units (unkn own) unknown) (unknown) (no date) (unknown) (unknown) 6.5 (units (unkn own) unknown) (unknown) (no date) (unknown) (unknown) CLEAR (units (unkn own) unknown) (unknown) (no date) (unknown) (unknown) NEGATIVE (units (unkn own) unknown) (unknown) (no date) (unknown) (unknown) NEGATIVE g/dL (unkn own) (unknown) (no date) (unknown) (unknown) TRACE (units (unkn own) unknown) (unknown) (no date) (unknown) (unknown) YELLOW (units (unkn own) unknown) Result panel 107 (unknown) (no date) (unknown) (unknown) 0-1/HPF (units (unkn own) unknown) (unknown) (no date) (unknown) (unknown) 0.2 E.U./dL (unkn own) (unknown) (no date) (unknown) (unknown) 1+ (units (unkn own) unknown) (unknown) (no date) (unknown) (unknown) 1.010 (units (unkn own) unknown) (unknown) (no date) (unknown) (unknown) 2+ (units (unkn own) unknown) (unknown) (no date) (unknown) (unknown) 5-10/HPF (units (unkn own) unknown) (unknown) (no date) (unknown) (unknown) 6.5 (units (unkn own) unknown) (unknown) (no date) (unknown) (unknown) CLEAR (units (unkn own) unknown) (unknown) (no date) (unknown) (unknown) Cult Not (units (unkn own) Indicated unknown) (unknown) (no date) (unknown) (unknown) NEGATIVE (units (unkn own) unknown) (unknown) (no date) (unknown) (unknown) NEGATIVE g/dL (unkn own) (unknown) (no date) (unknown) (unknown) None Seen (units (unk nown) unknown) (unknown) (no date) (unknown) (unknown) TRACE (units (unkn own) unknown) (unknown) (no date) (unknown) (unknown) YELLOW (units (unkn own) unknown) Result panel 108 (unknown) (no (unknown) (unknown) (no value) (units (unk nown) date) unknown) (unknown) (no (unknown) (unknown) Date of Service: (units (unknown) date) 02/03/22 unknown) (unknown) (no (unknown) (unknown) (no value) (units (unk nown) date) unknown) (unknown) (no (unknown) (unknown) - (units (unkno wn) date) unknown) (unknown) (no (unknown) (unknown) 02/06/22 07:06 (units (unknown) date) unknown) (unknown) (no (unknown) (unknown) 02/06/22 1546 (units ( unknown) date) unknown) (unknown) (no (unknown) (unknown) [facility] (units (unknown) date) [address] unknown) [place] [address] (unknown) (no (unknown) (unknown) Laboratory (units (unk nown) date) Results - last 24 unknown) hr (unknown) (no (unknown) (unknown) Progress Note (units ( unknown) date) unknown) (unknown) (no (unknown) (unknown) (no value) (units (unk nown) date) unknown) (unknown) (no (unknown) (unknown) 02/05/22 02/05/22 (units (unknown) date) 02/06/22 unknown) (unknown) (no (unknown) (unknown) 02/06/22 02/06/22 (units (unknown) date) 02/06/22 unknown) (unknown) (no (unknown) (unknown) 07:06 07:06 09:57 (units (unknown) date) unknown) (unknown) (no (unknown) (unknown) 15:01 15:49 07:06 (units (unknown) date) unknown) (unknown) (no (unknown) (unknown) 02/06/22 (units (unkno wn) date) unknown) (unknown) (no (unknown) (unknown) (past 8 hours): (units (unknown) date) unknown) (unknown) (no (unknown) (unknown) -ABG ordered and (units (unknown) date) CO2 not consistent unknown) with hypercarbia (unknown) (no (unknown) (unknown) -CT abdomen (units (un known) date) showed unknown) gastroenteritis vs ileus, no significant diarrhea, consider (unknown) (no (unknown) (unknown) -CT head ordered (units (unknown) date) and negative unknown) (unknown) (no (unknown) (unknown) -added (units (unkno wn) date) azithromycin, plan unknown) for 5 days (unknown) (no (unknown) (unknown) -chest xray and (units (unknown) date) ua were ordered unknown) for admitting service which were negative (unknown) (no (unknown) (unknown) -etiology not (units ( unknown) date) clear at the unknown) moment, he is mostly lethargic, think less likely (unknown) (no (unknown) (unknown) -labs look (units (unk nown) date) reassuring with unknown) normal white count and no concerning findings on bmp (unknown) (no (unknown) (unknown) -limit opiates (units (unknown) date) unknown) (unknown) (no (unknown) (unknown) -mild acute (units (un known) date) exacerbation unknown) (unknown) (no (unknown) (unknown) -ordered nebs and (units (unknown) date) steroids as well unknown) (unknown) (no (unknown) (unknown) -recheck ua, was (units (unknown) date) also negative unknown) (unknown) (no (unknown) (unknown) -suspect related (units (unknown) date) to delirium in unknown) setting of hospital and recent surgery (unknown) (no (unknown) (unknown) [id number] (units (unkn own) date) unknown) (unknown) (no (unknown) (unknown) 08:00 02/06/22 (units (unknown) date) unknown) (unknown) (no (unknown) (unknown) 08:23 (units (unkno wn) date) unknown) (unknown) (no (unknown) (unknown) 09:01 02/06/22 (units (unknown) date) unknown) (unknown) (no (unknown) (unknown) 1. Acute (units (unkno wn) date) encephalopathy unknown) (unknown) (no (unknown) (unknown) 11:07 02/06/22 (units (unknown) date) unknown) (unknown) (no (unknown) (unknown) 13:55 02/06/22 (units (unknown) date) unknown) (unknown) (no (unknown) (unknown) 15:35 (units (unkno wn) date) unknown) (unknown) (no (unknown) (unknown) 2. COPD (units (unkno wn) date) unknown) (unknown) (no (unknown) (unknown) ABD: soft, (units (unk nown) date) nontender, unknown) nondistended, no organomegaly (unknown) (no (unknown) (unknown) ABG Base Excess (units (unknown) date) unknown) (unknown) (no (unknown) (unknown) ABG Base Excess (units (unknown) date) 7.0 H unknown) (unknown) (no (unknown) (unknown) ABG HCO3 (units (unkno wn) date) unknown) (unknown) (no (unknown) (unknown) ABG HCO3 32 H (units (unknown) date) unknown) (unknown) (no (unknown) (unknown) ABG O2 Saturation (units (unknown) date) unknown) (unknown) (no (unknown) (unknown) ABG O2 Saturation (units (unknown) date) 87 L unknown) (unknown) (no (unknown) (unknown) ABG Total CO2 (units ( unknown) date) unknown) (unknown) (no (unknown) (unknown) ABG Total CO2 (units ( unknown) date) 33 H unknown) (unknown) (no (unknown) (unknown) ABG pCO2 (units (unkno wn) date) unknown) (unknown) (no (unknown) (unknown) ABG pCO2 52.6 H (units (unknown) date) unknown) (unknown) (no (unknown) (unknown) ABG pH (units (unkno wn) date) unknown) (unknown) (no (unknown) (unknown) ABG pH 7.39 (units ( unknown) date) unknown) (unknown) (no (unknown) (unknown) ABG pO2 (units (unkno wn) date) unknown) (unknown) (no (unknown) (unknown) ABG pO2 55 L (units (unknown) date) unknown) (unknown) (no (unknown) (unknown) ALT (units (unkno wn) date) unknown) (unknown) (no (unknown) (unknown) ALT 36 (units (unkno wn) date) unknown) (unknown) (no (unknown) (unknown) AST (units (unkno wn) date) unknown) (unknown) (no (unknown) (unknown) AST 98 H (units (unkn own) date) unknown) (unknown) (no (unknown) (unknown) Achalasia (units (unkn own) date) unknown) (unknown) (no (unknown) (unknown) Age/Sex: 76 / M (units (unknown) date) unknown) (unknown) (no (unknown) (unknown) Albumin (units (unkno wn) date) unknown) (unknown) (no (unknown) (unknown) Albumin 3.6 (units (u nknown) date) unknown) (unknown) (no (unknown) (unknown) Albumin/Globulin (units (unknown) date) Ratio unknown) (unknown) (no (unknown) (unknown) Albumin/Globulin (units (unknown) date) Ratio 1.2 unknown) (unknown) (no (unknown) (unknown) Alkaline (units (unkno wn) date) Phosphatase unknown) (unknown) (no (unknown) (unknown) Alkaline (units (unkno wn) date) Phosphatase 51 unknown) (unknown) (no (unknown) (unknown) Anginal pain (units (u nknown) date) unknown) (unknown) (no (unknown) (unknown) Assessment + Plan (units (unknown) date) unknown) (unknown) (no (unknown) (unknown) Assessment + Plan (units (unknown) date) narrative: unknown) (unknown) (no (unknown) (unknown) Asthma (units (unkno wn) date) unknown) (unknown) (no (unknown) (unknown) Atrial (units (unkno wn) date) fibrillation unknown) (unknown) (no (unknown) (unknown) BUN (units (unkno wn) date) unknown) (unknown) (no (unknown) (unknown) BUN 15 (units (unkno wn) date) unknown) (unknown) (no (unknown) (unknown) BUN/Creatinine (units (unknown) date) Ratio unknown) (unknown) (no (unknown) (unknown) BUN/Creatinine (units (unknown) date) Ratio 20.3 unknown) (unknown) (no (unknown) (unknown) Baso # (Auto) (units ( unknown) date) unknown) (unknown) (no (unknown) (unknown) Baso # (Auto) (units ( unknown) date) 100 100 unknown) (unknown) (no (unknown) (unknown) Baso % (Auto) (units ( unknown) date) unknown) (unknown) (no (unknown) (unknown) Baso % (Auto) (units ( unknown) date) 0.6 0.6 unknown) (unknown) (no (unknown) (unknown) Blood Pressure (units (unknown) date) 140/68 unknown) (unknown) (no (unknown) (unknown) Blood Pressure (units (unknown) date) 153/75 H unknown) (unknown) (no (unknown) (unknown) CODE: Full (units (unk nown) date) unknown) (unknown) (no (unknown) (unknown) COPD (chronic (units ( unknown) date) obstructive unknown) pulmonary disease) (unknown) (no (unknown) (unknown) CV: regular rate (units (unknown) date) and rhythm, no unknown) murmurs (unknown) (no (unknown) (unknown) Calcium (units (unkno wn) date) unknown) (unknown) (no (unknown) (unknown) Calcium 8.3 L (units (unknown) date) unknown) (unknown) (no (unknown) (unknown) Carbon Dioxide (units (unknown) date) unknown) (unknown) (no (unknown) (unknown) Carbon Dioxide (units (unknown) date) 33 H unknown) (unknown) (no (unknown) (unknown) Cervical spinal (units (unknown) date) stenosis unknown) (unknown) (no (unknown) (unknown) Chloride (units (unkno wn) date) unknown) (unknown) (no (unknown) (unknown) Chloride 100 (units ( unknown) date) unknown) (unknown) (no (unknown) (unknown) Chronic (units (o wn) date) obstructive unknown) pulmonary disease (10/22/16) (unknown) (no (unknown) (unknown) Coronary artery (units (unknown) date) disease unknown) (unknown) (no (unknown) (unknown) Creatinine (units (unk n) date) unknown) (unknown) (no (unknown) (unknown) Creatinine 0.74 (units (unknown) date) unknown) (unknown) (no (unknown) (unknown) Critical Care (units ( unknown) date) time: unknown) (unknown) (no (unknown) (unknown) : 1945 (units (unknown) date) Acct:[id number] unknown) (unknown) (no (unknown) (unknown) Date Patient (units (u nknown) date) Seen: 02/06/22 unknown) (unknown) (no (unknown) (unknown) EXT: warm and (units ( unknown) date) well perfused no unknown) edema (unknown) (no (unknown) (unknown) Eos # (Auto) (units (u nknown) date) unknown) (unknown) (no (unknown) (unknown) Eos # (Auto) 100 (units (unknown) date) 200 unknown) (unknown) (no (unknown) (unknown) Eos % (Auto) (units (u nknown) date) unknown) (unknown) (no (unknown) (unknown) Eos % (Auto) 1.5 (units (unknown) date) L 2.0 unknown) (unknown) (no (unknown) (unknown) Estimated GFR (units ( unknown) date) unknown) (unknown) (no (unknown) (unknown) Estimated GFR > (units (unknown) date) 60 unknown) (unknown) (no (unknown) (unknown) Exam (units (unkno wn) date) unknown) (unknown) (no (unknown) (unknown) Exam Narrative: (units (unknown) date) unknown) (unknown) (no (unknown) (unknown) Family History (units (unknown) date) (Reviewed 02/05/22 unknown) @ 17:55 by Evan Rangel MD) (unknown) (no (unknown) (unknown) Father (units (unkno wn) date) Hypertension unknown) (unknown) (no (unknown) (unknown) FiO2 (units (unkno wn) date) unknown) (unknown) (no (unknown) (unknown) FiO2 21 (units (unkn own) date) unknown) (unknown) (no (unknown) (unknown) GEN: no acute (units ( unknown) date) distress, unknown) lethargic (unknown) (no (unknown) (unknown) Globulin (units (unkno wn) date) unknown) (unknown) (no (unknown) (unknown) Globulin 3.0 (units ( unknown) date) unknown) (unknown) (no (unknown) (unknown) Glucose (units (unkno wn) date) unknown) (unknown) (no (unknown) (unknown) Glucose 117 H (units (unknown) date) unknown) (unknown) (no (unknown) (unknown) H/O arthroscopic (units (unknown) date) knee surgery unknown) (11/14/17) (unknown) (no (unknown) (unknown) HEENT: moist (units (u nknown) date) mucous membranes unknown) (unknown) (no (unknown) (unknown) Hct (units (unkno wn) date) unknown) (unknown) (no (unknown) (unknown) Hct 31.5 L (units (un known) date) 30.2 L unknown) (unknown) (no (unknown) (unknown) Hgb (units (unkno wn) date) unknown) (unknown) (no (unknown) (unknown) Hgb 11.1 L (units (un known) date) 10.7 L unknown) (unknown) (no (unknown) (unknown) History of aortic (units (unknown) date) dissection unknown) () (unknown) (no (unknown) (unknown) History of (units (unk nown) date) arthroplasty of unknown) left knee (05/24/19) (unknown) (no (unknown) (unknown) History of (units (unk nown) date) arthroplasty of unknown) right knee (unknown) (no (unknown) (unknown) History of (units (unk nown) date) bilateral total unknown) hip arthroplasty (unknown) (no (unknown) (unknown) History of (units (unk nown) date) cardiac cath unknown) () (unknown) (no (unknown) (unknown) History of (units (unk nown) date) esophageal surgery unknown) (unknown) (no (unknown) (unknown) History of (units (unk nown) date) incision and unknown) drainage () (unknown) (no (unknown) (unknown) History of prior (units (unknown) date) ablation treatment unknown) () (unknown) (no (unknown) (unknown) History of (units (unk nown) date) surgery unknown) (unknown) (no (unknown) (unknown) Hx of (units (unkno wn) date) cholecystectomy unknown) (unknown) (no (unknown) (unknown) Hx of hernia (units (u nknown) date) repair unknown) (unknown) (no (unknown) (unknown) Hx of sinus (units (un known) date) surgery unknown) (unknown) (no (unknown) (unknown) Hypertension (units (u nknown) date) unknown) (unknown) (no (unknown) (unknown) I have utilized (units (unknown) date) all available unknown) resources to reconcile the patient's home (unknown) (no (unknown) (unknown) I spent a total (units (unknown) date) of [] minutes of unknown) critical care time on this patient's care (unknown) (no (unknown) (unknown) Interval history: (units (unknown) date) unknown) (unknown) (no (unknown) (unknown) Ischemic (units (unkno wn) date) cardiomyopathy unknown) (unknown) (no (unknown) (unknown) Labs (units (unkno wn) date) unknown) (unknown) (no (unknown) (unknown) Labs: (units (unkno wn) date) unknown) (unknown) (no (unknown) (unknown) Lactate (units (unkno wn) date) unknown) (unknown) (no (unknown) (unknown) Lactate 0.8 (units ( unknown) date) unknown) (unknown) (no (unknown) (unknown) Lymph # (Auto) (units (unknown) date) unknown) (unknown) (no (unknown) (unknown) Lymph # (Auto) (units (unknown) date) 1200 1200 unknown) (unknown) (no (unknown) (unknown) Lymph % (Auto) (units (unknown) date) unknown) (unknown) (no (unknown) (unknown) Lymph % (Auto) (units (unknown) date) 13.8 L 15.4 L unknown) (unknown) (no (unknown) (unknown) MCH (units (unkno wn) date) unknown) (unknown) (no (unknown) (unknown) MCH 32.7 32.8 (units (unknown) date) unknown) (unknown) (no (unknown) (unknown) MCHC (units (unkno wn) date) unknown) (unknown) (no (unknown) (unknown) MCHC 35.2 35.5 (units (unknown) date) unknown) (unknown) (no (unknown) (unknown) MCV (units (unkno wn) date) unknown) (unknown) (no (unknown) (unknown) MCV 92.8 92.4 (units (unknown) date) unknown) (unknown) (no (unknown) (unknown) Medical History (units (unknown) date) (Reviewed 02/05/22 unknown) @ 17:55 by Evan Rangel MD) (unknown) (no (unknown) (unknown) [place] # (Auto) (units ( unknown) date) unknown) (unknown) (no (unknown) (unknown) [place] # (Auto) (units ( unknown) date) 1300 H 1100 H unknown) (unknown) (no (unknown) (unknown) [place] % (Auto) (units ( unknown) date) unknown) (unknown) (no (unknown) (unknown) [place] % (Auto) (units ( unknown) date) 15.8 H 14.2 H unknown) (unknown) (no (unknown) (unknown) Mother (units (unknown) date) Stroke unknown) (unknown) (no (unknown) (unknown) Mr. Viveros was (units (unknown) date) admitted for an unknown) elective procedure, underwent lumbar fusion, (unknown) (no (unknown) (unknown) NECK: trachea (units ( unknown) date) midline, no JVD unknown) (unknown) (no (unknown) (unknown) NEURO: confused, (units (unknown) date) moving all unknown) extremities (unknown) (no (unknown) (unknown) Narcotic (units (unkno wn) date) dependence unknown) (unknown) (no (unknown) (unknown) Narrative (units (unkn own) date) unknown) (unknown) (no (unknown) (unknown) Neck pain, (units (unk nown) date) chronic unknown) (unknown) (no (unknown) (unknown) Neut # (Auto) (units ( unknown) date) unknown) (unknown) (no (unknown) (unknown) Neut # (Auto) (units ( unknown) date) 5700 [id number] unknown) (unknown) (no (unknown) (unknown) Neut % (Auto) (units ( unknown) date) unknown) (unknown) (no (unknown) (unknown) Neut % (Auto) (units ( unknown) date) 68.3 67.8 unknown) (unknown) (no (unknown) (unknown) Objective (units (unkn own) date) unknown) (unknown) (no (unknown) (unknown) Oxygen Delivery (units (unknown) date) Method Room Air unknown) (unknown) (no (unknown) (unknown) Oxygen Delivery (units (unknown) date) Method Room Air unknown) Room Air (unknown) (no (unknown) (unknown) Oxygen Delivery (units (unknown) date) Method Room Air unknown) Room Air (unknown) (no (unknown) (unknown) Oxygen Flow Rate (units (unknown) date) 0 unknown) (unknown) (no (unknown) (unknown) Oxygen Flow Rate (units (unknown) date) 0 unknown) (unknown) (no (unknown) (unknown) Oxygen Flow Rate (units (unknown) date) 0 unknown) (unknown) (no (unknown) (unknown) PFSH (units (unkno wn) date) unknown) (unknown) (no (unknown) (unknown) PULM: poor air (units (unknown) date) movement, unknown) bilaterally (unknown) (no (unknown) (unknown) Patient: (units (unkno wn) date) Dominic Viveros unknown) MR#: M (unknown) (no (unknown) (unknown) Plt Count (units (unkn own) date) unknown) (unknown) (no (unknown) (unknown) Plt Count 221 (units (unknown) date) 230 unknown) (unknown) (no (unknown) (unknown) Potassium (units (unkn own) date) unknown) (unknown) (no (unknown) (unknown) Potassium 4.0 (units (unknown) date) unknown) (unknown) (no (unknown) (unknown) Provider: (units (unkn own) date) Evan Rangel MD unknown) (unknown) (no (unknown) (unknown) Proxy: Milana (units (u nknown) date) Donna unknown) (unknown) (no (unknown) (unknown) Pulse Oximetry 92 (units (unknown) date) 93 unknown) (unknown) (no (unknown) (unknown) Pulse Oximetry 92 (units (unknown) date) 93 95 unknown) (unknown) (no (unknown) (unknown) Pulse Rate 72 88 (units (unknown) date) 74 unknown) (unknown) (no (unknown) (unknown) Pulse Rate 85 82 (units (unknown) date) unknown) (unknown) (no (unknown) (unknown) RBC (units (unkno wn) date) unknown) (unknown) (no (unknown) (unknown) RBC 3.40 L (units (un known) date) 3.27 L unknown) (unknown) (no (unknown) (unknown) RDW (units (unkno wn) date) unknown) (unknown) (no (unknown) (unknown) RDW 13.2 13.0 (units (unknown) date) unknown) (unknown) (no (unknown) (unknown) Respiratory Rate (units (unknown) date) 18 16 unknown) (unknown) (no (unknown) (unknown) Respiratory Rate (units (unknown) date) 18 17 16 unknown) (unknown) (no (unknown) (unknown) Result Diagrams: (units (unknown) date) unknown) (unknown) (no (unknown) (unknown) S/P CABG x 3 (units (u nknown) date) () unknown) (unknown) (no (unknown) (unknown) S/P cervical (units (u nknown) date) spinal fusion unknown) (unknown) (no (unknown) (unknown) S/P lumbar fusion (units (unknown) date) unknown) (unknown) (no (unknown) (unknown) Signed (units (unkno wn) date) By:<Electronically unknown) signed by Evan Rangel MD> (unknown) (no (unknown) (unknown) Smoking Status: (units (unknown) date) Former smoker unknown) (unknown) (no (unknown) (unknown) Social History (units (unknown) date) (Reviewed 02/04/22 unknown) @ 10:10 by Yas Maravilla PA-C) (unknown) (no (unknown) (unknown) Sodium (units (unkno wn) date) unknown) (unknown) (no (unknown) (unknown) Sodium 137 (units (un known) date) unknown) (unknown) (no (unknown) (unknown) Subjective (units (unk nown) date) unknown) (unknown) (no (unknown) (unknown) Surgical History (units (unknown) date) (Reviewed 02/05/22 unknown) @ 17:55 by Evan Rangel MD) (unknown) (no (unknown) (unknown) Temperature 98 F (units (unknown) date) unknown) (unknown) (no (unknown) (unknown) Temperature 98 F (units (unknown) date) unknown) (unknown) (no (unknown) (unknown) Time Patient (units (u nknown) date) Seen: 08:00 unknown) (unknown) (no (unknown) (unknown) Time Spent With (units (unknown) date) Patient unknown) (unknown) (no (unknown) (unknown) Today has no (units (u nknown) date) complaints. unknown) However he is still confused and not really (unknown) (no (unknown) (unknown) Total Bilirubin (units (unknown) date) unknown) (unknown) (no (unknown) (unknown) Total Bilirubin (units (unknown) date) 0.7 unknown) (unknown) (no (unknown) (unknown) Total Protein (units ( unknown) date) unknown) (unknown) (no (unknown) (unknown) Total Protein (units ( unknown) date) 6.6 unknown) (unknown) (no (unknown) (unknown) Ur Culture (units (unk nown) date) Indicated? unknown) (unknown) (no (unknown) (unknown) Ur Culture (units (unk nown) date) Indicated? Cult unknown) not indicated (unknown) (no (unknown) (unknown) Ur Leukocyte (units (u nknown) date) Esterase unknown) (unknown) (no (unknown) (unknown) Ur Leukocyte (units (u nknown) date) Esterase unknown) Negative (unknown) (no (unknown) (unknown) Ur Specific (units (un known) date) Falcon unknown) (unknown) (no (unknown) (unknown) Ur Specific (units (un known) date) Falcon 1.010 unknown) (unknown) (no (unknown) (unknown) Urine Appearance (units (unknown) date) unknown) (unknown) (no (unknown) (unknown) Urine Appearance (units (unknown) date) Clear unknown) (unknown) (no (unknown) (unknown) Urine Bacteria (units (unknown) date) unknown) (unknown) (no (unknown) (unknown) Urine Bacteria (units (unknown) date) None seen unknown) (unknown) (no (unknown) (unknown) Urine Bilirubin (units (unknown) date) unknown) (unknown) (no (unknown) (unknown) Urine Bilirubin (units (unknown) date) Negative unknown) (unknown) (no (unknown) (unknown) Urine Color (units (un known) date) unknown) (unknown) (no (unknown) (unknown) Urine Color (units (un known) date) Yellow unknown) (unknown) (no (unknown) (unknown) Urine Glucose (units ( unknown) date) (UA) unknown) (unknown) (no (unknown) (unknown) Urine Glucose (units ( unknown) date) (UA) Negative unknown) (unknown) (no (unknown) (unknown) Urine Ketones (units ( unknown) date) unknown) (unknown) (no (unknown) (unknown) Urine Ketones (units ( unknown) date) Trace H unknown) (unknown) (no (unknown) (unknown) Urine Nitrate (units ( unknown) date) unknown) (unknown) (no (unknown) (unknown) Urine Nitrate (units ( unknown) date) Negative unknown) (unknown) (no (unknown) (unknown) Urine Occult (units (u nknown) date) Blood unknown) (unknown) (no (unknown) (unknown) Urine Occult (units (u nknown) date) Blood 1+ H unknown) (unknown) (no (unknown) (unknown) Urine Protein (units ( unknown) date) unknown) (unknown) (no (unknown) (unknown) Urine Protein (units ( unknown) date) 2+ H unknown) (unknown) (no (unknown) (unknown) Urine RBC (units (unkn own) date) unknown) (unknown) (no (unknown) (unknown) Urine RBC (units (unkn own) date) 5-10/hpf H unknown) (unknown) (no (unknown) (unknown) Urine (units (unkno wn) date) Urobilinogen unknown) (unknown) (no (unknown) (unknown) Urine (units (unkno wn) date) Urobilinogen unknown) 0.2 (unknown) (no (unknown) (unknown) Urine WBC (units (unkn own) date) unknown) (unknown) (no (unknown) (unknown) Urine WBC (units (unkn own) date) 0-1/hpf unknown) (unknown) (no (unknown) (unknown) Urine pH (units (unkno wn) date) unknown) (unknown) (no (unknown) (unknown) Urine pH 6.5 (units (unknown) date) unknown) (unknown) (no (unknown) (unknown) Ventricular (units (un known) date) bigeminy unknown) (unknown) (no (unknown) (unknown) Vital Signs (units (un known) date) unknown) (unknown) (no (unknown) (unknown) WBC (units (unkno wn) date) unknown) (unknown) (no (unknown) (unknown) WBC 8.4 8.0 (units (unknown) date) unknown) (unknown) (no (unknown) (unknown) We will continue (units (unknown) date) to follow along unknown) with you. (unknown) (no (unknown) (unknown) [Embedded Image (units (unknown) date) Not Available] unknown) (unknown) (no (unknown) (unknown) alcohol intake: (units (unknown) date) current unknown) (unknown) (no (unknown) (unknown) etoh withdrawal (units (unknown) date) unknown) (unknown) (no (unknown) (unknown) further workup if (units (unknown) date) clinical status unknown) changes (unknown) (no (unknown) (unknown) household (units (unkn own) date) members: spouse unknown) (unknown) (no (unknown) (unknown) medications. (units (u nknown) date) unknown) (unknown) (no (unknown) (unknown) medicine is (units (un known) date) consulted for unknown) confusion and lethargy. (unknown) (no (unknown) (unknown) participating in (units (unknown) date) exam. unknown) (unknown) (no (unknown) (unknown) substance use (units ( unknown) date) type: does not unknown) use (unknown) (no (unknown) (unknown) today; this time (units (unknown) date) is exclusive of unknown) procedural time. Result panel 109 (unknown) (no date) (unknown) (unknown) (no value) (units (un known) unknown) (unknown) (no date) (unknown) (unknown) NO GROWTH (units (unk nown) AFTER 24 unknown) HOURS Result panel 110 (unknown) (no (unknown) (unknown) (no value) (units (unk nown) date) unknown) (unknown) (no (unknown) (unknown) Date of Service: (units (unknown) date) 02/03/22 unknown) (unknown) (no (unknown) (unknown) (no value) (units (unk nown) date) unknown) (unknown) (no (unknown) (unknown) - (units (unkno wn) date) unknown) (unknown) (no (unknown) (unknown) 0.2 mg PO BID (units ( unknown) date) unknown) (unknown) (no (unknown) (unknown) 02/06/22 07:06 (units (unknown) date) unknown) (unknown) (no (unknown) (unknown) 02/07/22 1047 (units ( unknown) date) unknown) (unknown) (no (unknown) (unknown) 1 puff INHALATION (units (unknown) date) Q4-6H PRN (Reason: unknown) shortness of breath or wheezing) Qty: 15 (unknown) (no (unknown) (unknown) 1 spray Intranasal (units (unknown) date) DAILY PRN (Reason: unknown) Allergy Symptoms) Qty: 0 (unknown) (no (unknown) (unknown) 1 tab PO DAILY (units (unknown) date) Qty: 0 unknown) (unknown) (no (unknown) (unknown) 1-2 tabs q 4 hours (units (unknown) date) PRN moderate to unknown) severe pain (unknown) (no (unknown) (unknown) 10 mg PO DAILY (units (unknown) date) unknown) (unknown) (no (unknown) (unknown) 100 mg PO BID PRN (units (unknown) date) (Reason: unknown) constipation) Qty: 60 2RF (unknown) (no (unknown) (unknown) 100 mg PO DAILY (units (unknown) date) unknown) (unknown) (no (unknown) (unknown) 2 tab PO Q4H PRN (units (unknown) date) (Reason: Pain unknown) (Scale Score 4-6)) (unknown) (no (unknown) (unknown) 2.5 mg PO DAILY (units (unknown) date) unknown) (unknown) (no (unknown) (unknown) 25 mg PO QID PRN (units (unknown) date) (Reason: vertigo) unknown) Qty: 30 0RF (unknown) (no (unknown) (unknown) 325 mg PO DAILY (units (unknown) date) unknown) (unknown) (no (unknown) (unknown) 40 mg PO DAILY (units (unknown) date) unknown) (unknown) (no (unknown) (unknown) 400 tab PO BEDTIME (units (unknown) date) 30 Days Qty: 120 unknown) 0RF (unknown) (no (unknown) (unknown) 5 mg PO Q4H PRN (units (unknown) date) (Reason: pain, unknown) moderate) Qty: 60 0RF (unknown) (no (unknown) (unknown) 650 mg PO Q6H PRN (units (unknown) date) (Reason: pain) Qty: unknown) 60 0RF (unknown) (no (unknown) (unknown) Comment: (units (unkno wn) date) unknown) (unknown) (no (unknown) (unknown) Comment: Asthma (units (unknown) date) (Possible COPD); unknown) s/p spine surgery (unknown) (no (unknown) (unknown) Consulting (units (unk nown) date) Provider: unknown) Evan Rangel (unknown) (no (unknown) (unknown) Discharge Summary (units (unknown) date) unknown) (unknown) (no (unknown) (unknown) Has provider been (units (unknown) date) notified: Yes unknown) (unknown) (no (unknown) (unknown) [facility] (units (unknown) date) [address] [place] [address] unknown) [place] [address] (unknown) (no (unknown) (unknown) Label Comments: (units (unknown) date) unknown) (unknown) (no (unknown) (unknown) Physician (units (unkn own) date) Instructions: unknown) Evaluate and Treat (unknown) (no (unknown) (unknown) Physician (units (unkn own) date) Instructions: unknown) Evaluate and treat (unknown) (no (unknown) (unknown) Reason for (units (unk nown) date) consultation: unknown) hypotension, alcohol withdrawal (unknown) (no (unknown) (unknown) Rx Instructions: (units (unknown) date) unknown) (unknown) (no (unknown) (unknown) take 1 tablet by (units (unknown) date) mouth once daily unknown) (unknown) (no (unknown) (unknown) (no value) (units (unk nown) date) unknown) (unknown) (no (unknown) (unknown) Zyrtec 10 mg (units (u nknown) date) Capsule unknown) (unknown) (no (unknown) (unknown) acetaminophen (units ( unknown) date) [Athenol] 325 mg unknown) tablet (unknown) (no (unknown) (unknown) acetaminophen-code (units (unknown) date) ine 300-30 mg unknown) tablet (unknown) (no (unknown) (unknown) clonidine HCl 0.1 (units (unknown) date) mg tablet unknown) (unknown) (no (unknown) (unknown) docusate sodium (units (unknown) date) 100 mg Capsule unknown) (unknown) (no (unknown) (unknown) ferrous sulfate (units (unknown) date) 325 mg (65 mg iron) unknown) tablet,delayed release (DR/EC) (unknown) (no (unknown) (unknown) fluticasone (units (un known) date) propionate 16 GM unknown) spray,suspension (unknown) (no (unknown) (unknown) furosemide 40 mg (units (unknown) date) tablet unknown) (unknown) (no (unknown) (unknown) glipizide (units (unkn own) date) [Glucotrol XL] 2.5 unknown) mg tablet extended release 24 hr (unknown) (no (unknown) (unknown) levalbuterol (units (u nknown) date) tartrate [Xopenex unknown) HFA] 45 mcg/actuation HFA aerosol inhaler (unknown) (no (unknown) (unknown) lisinopril 10 mg (units (unknown) date) tablet unknown) (unknown) (no (unknown) (unknown) meclizine 25 mg (units (unknown) date) tablet unknown) (unknown) (no (unknown) (unknown) metoprolol (units (unk nown) date) succinate 100 mg unknown) Tablet Extended Release 24 Hr (unknown) (no (unknown) (unknown) montelukast 10 mg (units (unknown) date) Tablet unknown) (unknown) (no (unknown) (unknown) multivitamin (units (u nknown) date) [Multiple Vitamins] unknown) 1 EACH tablet (unknown) (no (unknown) (unknown) oxycodone 5 mg (units (unknown) date) tablet unknown) (unknown) (no (unknown) (unknown) trazodone 100 mg (units (unknown) date) tablet unknown) (unknown) (no (unknown) (unknown) 02/07/22 (units (unkno wn) date) unknown) (unknown) (no (unknown) (unknown) (past 8 hours): (units (unknown) date) unknown) (unknown) (no (unknown) (unknown) [id number] (units (unkn own) date) unknown) (unknown) (no (unknown) (unknown) 04:00 02/07/22 (units (unknown) date) unknown) (unknown) (no (unknown) (unknown) 02/03/22 07:21 (units (unknown) date) unknown) (unknown) (no (unknown) (unknown) 02/03/22 17:05 (units (unknown) date) unknown) (unknown) (no (unknown) (unknown) 02/03/22 17:08 (units (unknown) date) unknown) (unknown) (no (unknown) (unknown) 02/05/22 08:02 (units (unknown) date) unknown) (unknown) (no (unknown) (unknown) 07:25 02/07/22 (units (unknown) date) unknown) (unknown) (no (unknown) (unknown) 08:00 (units (unkno wn) date) unknown) (unknown) (no (unknown) (unknown) 0RF (units (unkno wn) date) unknown) (unknown) (no (unknown) (unknown) 1. L2-3, L3-4 (units ( unknown) date) posterolateral and unknown) posterior interbody fusion (unknown) (no (unknown) (unknown) 2. History of (units ( unknown) date) L4-5, L5-S1 fusion unknown) with instrumentation (unknown) (no (unknown) (unknown) 2. L2-3, L3-4 (units ( unknown) date) posterior interbody unknown) cage placement (unknown) (no (unknown) (unknown) 3. L4-5, L5-S1 (units (unknown) date) posterior segmental unknown) instrumentation removal (unknown) (no (unknown) (unknown) 4. L4-5, L5-S1 (units (unknown) date) revision unknown) laminectomy with exploration of fusion (unknown) (no (unknown) (unknown) 5. L2-3, L3-4, (units (unknown) date) L4-5, L5-S1 unknown) posterior segmental instrumentation with pedicle (unknown) (no (unknown) (unknown) 5/5 strength in (units (unknown) date) hip flexors, unknown) quadriceps, hamstrings, DF, PF, EHL bilaterally. (unknown) (no (unknown) (unknown) 6. L4-5 (units (unkno wn) date) posterolatearl unknown) fusion (unknown) (no (unknown) (unknown) 7. [place] of bone (units (unknown) date) marrow from iliac unknown) crest through a separate incision (unknown) (no (unknown) (unknown) 02/16/2022 @ 1:00 (units (unknown) date) pm at [facility] unknown) e office in [place].) (unknown) (no (unknown) (unknown) 8. Utilization of (units (unknown) date) microsurgical unknown) technique and operating microscope (unknown) (no (unknown) (unknown) 9. Utilization of (units (unknown) date) [employer] robotic unknown) navigation (unknown) (no (unknown) (unknown) Achalasia (units (unkn own) date) unknown) (unknown) (no (unknown) (unknown) Activity: Walk (units (unknown) date) frequently. No unknown) deep bending (more than 90 degrees) or twisting (unknown) (no (unknown) (unknown) Age/Sex: 76 / M (units (unknown) date) unknown) (unknown) (no (unknown) (unknown) Anesthesia Type: (units (unknown) date) General unknown) (unknown) (no (unknown) (unknown) Anginal pain (units (u nknown) date) unknown) (unknown) (no (unknown) (unknown) Kimmy Gomez MD (units (unknown) date) unknown) (unknown) (no (unknown) (unknown) Applied: catheter (units (unknown) date) unknown) (unknown) (no (unknown) (unknown) Assessment and (units (unknown) date) Plan unknown) (unknown) (no (unknown) (unknown) Assessment: (units (un known) date) unknown) (unknown) (no (unknown) (unknown) Medical Insurance Claims Specialist: Elizabet (units (unknown) date) Beh unknown) (unknown) (no (unknown) (unknown) Asthma (units (unkno wn) date) unknown) (unknown) (no (unknown) (unknown) Atrial (units (unkno wn) date) fibrillation unknown) (unknown) (no (unknown) (unknown) Blood Pressure (units (unknown) date) 132/69 130/60 unknown) (unknown) (no (unknown) (unknown) Blood products (units (unknown) date) transfused: none unknown) (unknown) (no (unknown) (unknown) COPD (chronic (units ( unknown) date) obstructive unknown) pulmonary disease) (unknown) (no (unknown) (unknown) Cervical spinal (units (unknown) date) stenosis unknown) (unknown) (no (unknown) (unknown) Chief complaint: (units (unknown) date) INPT unknown) (unknown) (no (unknown) (unknown) 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 (10/22/16) (unknown) (no (unknown) (unknown) Click Yes if (units (u nknown) date) Unassisted: No unknown) (unknown) (no (unknown) (unknown) Closure Type: (units ( unknown) date) primary unknown) (unknown) (no (unknown) (unknown) Cold/Heat Therapy: (units (unknown) date) Heating pad to low unknown) back as needed for pain. (unknown) (no (unknown) (unknown) Consult to (units (unk nown) date) Hospitalist Service unknown) Routine (unknown) (no (unknown) (unknown) Consult to (units (unk nown) date) Occupational unknown) Therapy Evaluate + Treat (unknown) (no (unknown) (unknown) Consult to (units (unk nown) date) Physical Therapy unknown) Evaluate + Treat (unknown) (no (unknown) (unknown) Consult to (units (unk nown) date) Respiratory Therapy unknown) Evaluate + Treat (unknown) (no (unknown) (unknown) Consults: (units (unkn own) date) unknown) (unknown) (no (unknown) (unknown) Continued (units (unkn own) date) unknown) (unknown) (no (unknown) (unknown) Coronary artery (units (unknown) date) disease unknown) (unknown) (no (unknown) (unknown) : 1945 (units (unknown) date) Acct:[id number] unknown) (unknown) (no (unknown) (unknown) Kimmy Gomez MD (units (unknown) date) [Primary Care unknown) Provider] - (unknown) (no (unknown) (unknown) Date Patient Seen: (units (unknown) date) 02/07/22 unknown) (unknown) (no (unknown) (unknown) Date of admission: (units (unknown) date) unknown) (unknown) (no (unknown) (unknown) Date of procedure: (units (unknown) date) 02/03/22 unknown) (unknown) (no (unknown) (unknown) Diet/Activity/Alessandra (units (unknown) date) tments unknown) (unknown) (no (unknown) (unknown) Diet: Diet as (units ( unknown) date) Tolerated unknown) (unknown) (no (unknown) (unknown) Discharge (units (unkn own) date) Assessment + Plan unknown) (unknown) (no (unknown) (unknown) Discharge Data (units (unknown) date) unknown) (unknown) (no (unknown) (unknown) Discharge Date: (units (unknown) date) 02/07/22 unknown) (unknown) (no (unknown) (unknown) Discharge (units (unkn own) date) Diagnosis: unknown) (unknown) (no (unknown) (unknown) Discharge Plan (units (unknown) date) unknown) (unknown) (no (unknown) (unknown) Discharge (units (unkn own) date) Providers unknown) (unknown) (no (unknown) (unknown) Discharge home w/ (units (unknown) date) new rx for unknown) oxycodone only for pain control. Pt on Tylenol w/ (unknown) (no (unknown) (unknown) Discharge orders + (units (unknown) date) Medications unknown) (unknown) (no (unknown) (unknown) Discharge (units (unkn own) date) provider: unknown) (unknown) (no (unknown) (unknown) Discontinued (units (u nknown) date) unknown) (unknown) (no (unknown) (unknown) Dressing: December (units ( unknown) date) shower. Keep unknown) clean, dry gauze over incisions. No bathing or (unknown) (no (unknown) (unknown) Estimated Blood (units (unknown) date) Loss (mL): 250 unknown) (unknown) (no (unknown) (unknown) Exam (units (unkno wn) date) unknown) (unknown) (no (unknown) (unknown) Exam Narrative: (units (unknown) date) unknown) (unknown) (no (unknown) (unknown) Family History (units (unknown) date) (Reviewed 02/05/22 unknown) @ 17:55 by Evan Rangel MD) (unknown) (no (unknown) (unknown) Father (units (unkno wn) date) Hypertension unknown) (unknown) (no (unknown) (unknown) Follow (units (unkno wn) date) up/Referrals: unknown) (unknown) (no (unknown) (unknown) Globus CREO MIS (units (unknown) date) screws, Rise cages unknown) (unknown) (no (unknown) (unknown) H/O arthroscopic (units (unknown) date) knee surgery unknown) (11/14/17) (unknown) (no (unknown) (unknown) History of Present (units (unknown) date) Illness unknown) (unknown) (no (unknown) (unknown) History of aortic (units (unknown) date) dissection unknown) () (unknown) (no (unknown) (unknown) History of (units (unk nown) date) arthroplasty of unknown) left knee (05/24/19) (unknown) (no (unknown) (unknown) History of (units (unk nown) date) arthroplasty of unknown) right knee (unknown) (no (unknown) (unknown) 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 (unknown) (no (unknown) (unknown) History of cardiac (units (unknown) date) cath () unknown) (unknown) (no (unknown) (unknown) History of (units (unk nown) date) esophageal surgery unknown) (unknown) (no (unknown) (unknown) History of (units (unk nown) date) incision and unknown) drainage (-2016) (unknown) (no (unknown) (unknown) History of prior (units (unknown) date) ablation treatment unknown) () (unknown) (no (unknown) (unknown) History of surgery (units (unknown) date) unknown) (unknown) (no (unknown) (unknown) Hospital Course (units (unknown) date) unknown) (unknown) (no (unknown) (unknown) Hospital Course: (units (unknown) date) unknown) (unknown) (no (unknown) (unknown) Hx of (units (unkno wn) date) cholecystectomy unknown) (unknown) (no (unknown) (unknown) Hx of hernia (units (u nknown) date) repair unknown) (unknown) (no (unknown) (unknown) Hx of sinus (units (un known) date) surgery unknown) (unknown) (no (unknown) (unknown) Hypertension (units (u nknown) date) unknown) (unknown) (no (unknown) (unknown) Indications: (units (u nknown) date) unknown) (unknown) (no (unknown) (unknown) Instructions: DI (units (unknown) date) for Prescription unknown) Opioid Use, DI for Transforaminal Lumbar (unknown) (no (unknown) (unknown) Interbody Fusion (units (unknown) date) unknown) (unknown) (no (unknown) (unknown) Ischemic (units (unkno wn) date) cardiomyopathy unknown) (unknown) (no (unknown) (unknown) Elizabet Layton PA-C (units (unknown) date) unknown) (unknown) (no (unknown) (unknown) Labs (units (unkno wn) date) unknown) (unknown) (no (unknown) (unknown) Carlos Montemayor MD (units (u nknown) date) [Physician] - As unknown) previously scheduled (Follow up w/ Dr Montemayor on (unknown) (no (unknown) (unknown) Medical History (units (unknown) date) (Reviewed 02/05/22 unknown) @ 17:55 by Evan Rangel MD) (unknown) (no (unknown) (unknown) Mother (units (unknown) date) Stroke unknown) (unknown) (no (unknown) (unknown) Mr Viveros's (units (u nknown) date) hospital course was unknown) complicated by lethargy following surgery. (unknown) (no (unknown) (unknown) Narcotic (units (unkno wn) date) dependence unknown) (unknown) (no (unknown) (unknown) Narrative (units (unkn own) date) unknown) (unknown) (no (unknown) (unknown) Narrative: (units (unk nown) date) unknown) (unknown) (no (unknown) (unknown) Neck pain, chronic (units (unknown) date) unknown) (unknown) (no (unknown) (unknown) New (units (unkno wn) date) unknown) (unknown) (no (unknown) (unknown) Objective (units (unkn own) date) unknown) (unknown) (no (unknown) (unknown) Operative (units (unkn own) date) Date/Time/Diagnoses unknown) (unknown) (no (unknown) (unknown) Operative Notes (units (unknown) date) unknown) (unknown) (no (unknown) (unknown) Oxygen Delivery (units (unknown) date) Method Room Air unknown) (unknown) (no (unknown) (unknown) Oxygen Delivery (units (unknown) date) Method Room Air unknown) (unknown) (no (unknown) (unknown) Oxygen Flow Rate (units (unknown) date) 0 unknown) (unknown) (no (unknown) (unknown) Oxygen Flow Rate (units (unknown) date) 0 unknown) (unknown) (no (unknown) (unknown) PFSH (units (unkno wn) date) unknown) (unknown) (no (unknown) (unknown) Patient (units (unkno wn) date) Disposition: Home unknown) (unknown) (no (unknown) (unknown) Patient failed (units ( unknown) date) multiple unknown) conservative management with worsening pain weakness and (unknown) (no (unknown) (unknown) Patient had (units (unk nown) date) previous L4-S1 unknown) lumbar fusion it has been doing well until the last 6 (unknown) (no (unknown) (unknown) Patient has been (units (unknown) date) having chronic back unknown) pain and worsening lumbar radiculopathy. (unknown) (no (unknown) (unknown) Patient: (units (unkno wn) date) Dominic Viveros unknown) MR#: M (unknown) (no (unknown) (unknown) Plan of Treatment: (units (unknown) date) unknown) (unknown) (no (unknown) (unknown) Post-op diagnosis: (units (unknown) date) same unknown) (unknown) (no (unknown) (unknown) Pre-op diagnosis: (units (unknown) date) 1. 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, L5-S1 spinal stenosis with neurogenic (unknown) (no (unknown) (unknown) Prescriptions: (units (unknown) date) unknown) (unknown) (no (unknown) (unknown) Primary Care (units (u nknown) date) Provider: unknown) Kimmy Gomez (unknown) (no (unknown) (unknown) Primary care (units (u nknown) date) physician: unknown) (unknown) (no (unknown) (unknown) Procedure + (units (un known) date) Clinicians unknown) (unknown) (no (unknown) (unknown) Procedure: (units (unk nown) date) unknown) (unknown) (no (unknown) (unknown) Prosthetic (units (unk nown) date) devices, grafts, unknown) tissues, transplants, or devices: (unknown) (no (unknown) (unknown) Provider (units (unkno wn) date) unknown) (unknown) (no (unknown) (unknown) Provider: (units (unkn own) date) Elizabet Layton P.A-C unknown) (unknown) (no (unknown) (unknown) Pulse Oximetry 97 (units (unknown) date) 93 94 unknown) (unknown) (no (unknown) (unknown) Pulse Rate 66 68 (units (unknown) date) unknown) (unknown) (no (unknown) (unknown) Report to your (units (unknown) date) healthcare provider unknown) any signs of infection, such as:: chills, (unknown) (no (unknown) (unknown) Respiratory Rate (units (unknown) date) 18 17 unknown) (unknown) (no (unknown) (unknown) Result Diagrams: (units (unknown) date) unknown) (unknown) (no (unknown) (unknown) S/P CABG x 3 (units (u nknown) date) () unknown) (unknown) (no (unknown) (unknown) S/P cervical (units (u nknown) date) spinal fusion unknown) (unknown) (no (unknown) (unknown) S/P lumbar fusion (units (unknown) date) unknown) (unknown) (no (unknown) (unknown) Same procedure as (units (unknown) date) scheduled: Yes unknown) (unknown) (no (unknown) (unknown) Sensation to light (units (unknown) date) touch intact in unknown) BLE. Calves soft, compressible, nontender (unknown) (no (unknown) (unknown) Signed (units (unkno wn) date) By:<Electronically unknown) signed by Elizabet Layton> (unknown) (no (unknown) (unknown) Skin/Wound/Dressin (units (unknown) date) g Care unknown) (unknown) (no (unknown) (unknown) Smoking Status: (units (unknown) date) Former smoker unknown) (unknown) (no (unknown) (unknown) Social History (units (unknown) date) (Reviewed 02/04/22 unknown) @ 10:10 by Yas Maravilla PA-C) (unknown) (no (unknown) (unknown) Specimen(s): none (units (unknown) date) sent unknown) (unknown) (no (unknown) (unknown) Stand Alone Forms: (units (unknown) date) Surgery Discharge unknown) (unknown) (no (unknown) (unknown) Summary (units (unkno wn) date) unknown) (unknown) (no (unknown) (unknown) Surgeon: Carlos Montemayor (units (unknown) date) unknown) (unknown) (no (unknown) (unknown) Surgical History (units (unknown) date) (Reviewed 02/05/22 unknown) @ 17:55 by Evan Rangel MD) (unknown) (no (unknown) (unknown) Temperature 98.3 F (units (unknown) date) 98.5 F unknown) (unknown) (no (unknown) (unknown) This prevented him (units (unknown) date) from progressing w/ unknown) PT for several days. The hospitalist (unknown) (no (unknown) (unknown) Time Patient Seen: (units (unknown) date) 10:39 unknown) (unknown) (no (unknown) (unknown) Time of procedure: (units (unknown) date) 10:00 unknown) (unknown) (no (unknown) (unknown) Ventricular (units (un known) date) bigeminy unknown) (unknown) (no (unknown) (unknown) Visit (units (unkno wn) date) Report/Discharge unknown) Packet (unknown) (no (unknown) (unknown) Vital Signs (units (un known) date) unknown) (unknown) (no (unknown) (unknown) [Embedded Image (units (unknown) date) Not Available] unknown) (unknown) (no (unknown) (unknown) activity of daily (units (unknown) date) living.? After unknown) discussing risks benefits of treatment options, (unknown) (no (unknown) (unknown) adverse reaction (units (unknown) date) to long-acting unknown) opioids (unknown) (no (unknown) (unknown) alcohol intake: (units (unknown) date) current unknown) (unknown) (no (unknown) (unknown) and without (units (un known) date) palpable cords or unknown) masses. Low back dressings placed (unknown) (no (unknown) (unknown) appropriately and (units (unknown) date) following commands. unknown) His has a walker, wheelchair, and 4 (unknown) (no (unknown) (unknown) at the waist. No (units (unknown) date) lifting > 10 unknown) pounds. (unknown) (no (unknown) (unknown) claudication (units (u nknown) date) unknown) (unknown) (no (unknown) (unknown) codeine at home (units (unknown) date) and can continue unknown) this as needed. F/u in office as scheduled. (unknown) (no (unknown) (unknown) complained of back (units (unknown) date) pain and denied leg unknown) pain. Milana says the only pain (unknown) (no (unknown) (unknown) discontinued on the (units (unknown) date) evening of POD# 1. unknown) On POD# 4, I spoke to his spouse, Milana, (unknown) (no (unknown) (unknown) feels his lethargy (units (unknown) date) and confusion up unknown) until this point was likely due to fentanyl (unknown) (no (unknown) (unknown) fever, night (units (u nknown) date) sweats, unusual unknown) drainage and unusual redness (unknown) (no (unknown) (unknown) for the first time (units (unknown) date) and she said pt is unknown) very sensitive to long-acting or time- (unknown) (no (unknown) (unknown) household members: (units (unknown) date) spouse unknown) (unknown) (no (unknown) (unknown) incisions. (units (unk nown) date) unknown) (unknown) (no (unknown) (unknown) intraoperatively (units (unknown) date) are CDI. unknown) (unknown) (no (unknown) (unknown) medication they (units (unknown) date) want for discharge unknown) is oxycodone. (unknown) (no (unknown) (unknown) month. (units (unkno wn) date) unknown) (unknown) (no (unknown) (unknown) narcotics, he was (units (unknown) date) started on a unknown) fentanyl patch after surgery, and this was (unknown) (no (unknown) (unknown) numbness in his (units (unknown) date) lower extremity.? unknown) Patient has been having difficulty performing (unknown) (no (unknown) (unknown) otherwise soaking (units (unknown) date) incisions. Do not unknown) apply any creams, lotions, or ointments to (unknown) (no (unknown) (unknown) patch. He was (units (unknown) date) sitting up in a unknown) chair, fully awake, answering questions (unknown) (no (unknown) (unknown) patient elected (units (unknown) date) proceed with unknown) surgery. (unknown) (no (unknown) (unknown) point cane (units (unk nown) date) available to him unknown) and they have a ramp going into their house. He (unknown) (no (unknown) (unknown) problem as the (units (unknown) date) cause of his mental unknown) status changes. In addition to oral (unknown) (no (unknown) (unknown) release narcotics. (units (unknown) date) He was much unknown) brighter on the morning of POD# 4 and Milana (unknown) (no (unknown) (unknown) s/p lumbar fusion (units (unknown) date) unknown) (unknown) (no (unknown) (unknown) screw placement (units (unknown) date) unknown) (unknown) (no (unknown) (unknown) service was (units (un known) date) consulted and ruled unknown) out infectious process or acute neurologic (unknown) (no (unknown) (unknown) substance use (units ( unknown) date) type: does not use unknown) Result panel 111 (unknown) (no (unknown) (unknown) (no value) (units (unk nown) date) unknown) (unknown) (no (unknown) (unknown) Date of Service: (units (unknown) date) 02/03/22 unknown) (unknown) (no (unknown) (unknown) (no value) (units (unk nown) date) unknown) (unknown) (no (unknown) (unknown) - (units (unkno wn) date) unknown) (unknown) (no (unknown) (unknown) 02/06/22 07:06 (units (unknown) date) unknown) (unknown) (no (unknown) (unknown) [facility] (units (unknown) date) [address] unknown) [place] [address] (unknown) (no (unknown) (unknown) Progress Note (units ( unknown) date) unknown) (unknown) (no (unknown) (unknown) (no value) (units (unk nown) date) unknown) (unknown) (no (unknown) (unknown) 02/07/22 (units (unkno wn) date) unknown) (unknown) (no (unknown) (unknown) (past 8 hours): (units (unknown) date) unknown) (unknown) (no (unknown) (unknown) [id number] (units (unkn own) date) unknown) (unknown) (no (unknown) (unknown) 04:00 02/07/22 (units (unknown) date) unknown) (unknown) (no (unknown) (unknown) 07:25 02/07/22 (units (unknown) date) unknown) (unknown) (no (unknown) (unknown) 08:00 (units (unkno wn) date) unknown) (unknown) (no (unknown) (unknown) Achalasia (units (unkn own) date) unknown) (unknown) (no (unknown) (unknown) Age/Sex: 76 / M (units (unknown) date) unknown) (unknown) (no (unknown) (unknown) Anginal pain (units (u nknown) date) unknown) (unknown) (no (unknown) (unknown) Assessment + Plan (units (unknown) date) unknown) (unknown) (no (unknown) (unknown) Asthma (units (unkno wn) date) unknown) (unknown) (no (unknown) (unknown) Atrial (units (unkno wn) date) fibrillation unknown) (unknown) (no (unknown) (unknown) Blood Pressure (units (unknown) date) 132/69 130/60 unknown) (unknown) (no (unknown) (unknown) COPD (chronic (units ( unknown) date) obstructive unknown) pulmonary disease) (unknown) (no (unknown) (unknown) Cervical spinal (units (unknown) date) stenosis unknown) (unknown) (no (unknown) (unknown) 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 (10/22/16) (unknown) (no (unknown) (unknown) Coronary artery (units (unknown) date) disease unknown) (unknown) (no (unknown) (unknown) Critical Care (units ( unknown) date) time: unknown) (unknown) (no (unknown) (unknown) : 1945 (units (unknown) date) Acct:[id number] unknown) (unknown) (no (unknown) (unknown) Date Patient (units (u nknown) date) Seen: 02/07/22 unknown) (unknown) (no (unknown) (unknown) Exam (units (unkno wn) date) unknown) (unknown) (no (unknown) (unknown) Family History (units (unknown) date) (Reviewed 02/05/22 unknown) @ 17:55 by Evan Rangel MD) (unknown) (no (unknown) (unknown) Father (units (unkno wn) date) Hypertension unknown) (unknown) (no (unknown) (unknown) H/O arthroscopic (units (unknown) date) knee surgery unknown) (11/14/17) (unknown) (no (unknown) (unknown) History of aortic (units (unknown) date) dissection unknown) () (unknown) (no (unknown) (unknown) History of (units (unk nown) date) arthroplasty of unknown) left knee (05/24/19) (unknown) (no (unknown) (unknown) History of (units (unk nown) date) arthroplasty of unknown) right knee (unknown) (no (unknown) (unknown) History of (units (unk nown) date) bilateral total unknown) hip arthroplasty (unknown) (no (unknown) (unknown) History of (units (unk nown) date) cardiac cath unknown) () (unknown) (no (unknown) (unknown) History of (units (unk nown) date) esophageal surgery unknown) (unknown) (no (unknown) (unknown) History of (units (unk nown) date) incision and unknown) drainage (-2016) (unknown) (no (unknown) (unknown) History of prior (units (unknown) date) ablation treatment unknown) (-03/2017) (unknown) (no (unknown) (unknown) History of (units (unk nown) date) surgery unknown) (unknown) (no (unknown) (unknown) Hx of (units (unkno wn) date) cholecystectomy unknown) (unknown) (no (unknown) (unknown) Hx of hernia (units (u nknown) date) repair unknown) (unknown) (no (unknown) (unknown) Hx of sinus (units (un known) date) surgery unknown) (unknown) (no (unknown) (unknown) Hypertension (units (u nknown) date) unknown) (unknown) (no (unknown) (unknown) I spent a total (units (unknown) date) of [] minutes of unknown) critical care time on this patient's care (unknown) (no (unknown) (unknown) Interval history: (units (unknown) date) unknown) (unknown) (no (unknown) (unknown) Ischemic (units (unkno wn) date) cardiomyopathy unknown) (unknown) (no (unknown) (unknown) Labs (units (unkno wn) date) unknown) (unknown) (no (unknown) (unknown) Medical History (units (unknown) date) (Reviewed 02/05/22 unknown) @ 17:55 by Evan Rangel MD) (unknown) (no (unknown) (unknown) Mother (units (unknown) date) Stroke unknown) (unknown) (no (unknown) (unknown) Narcotic (units (unkno wn) date) dependence unknown) (unknown) (no (unknown) (unknown) Neck pain, (units (unk nown) date) chronic unknown) (unknown) (no (unknown) (unknown) Objective (units (unkn own) date) unknown) (unknown) (no (unknown) (unknown) Oxygen Delivery (units (unknown) date) Method Room Air unknown) (unknown) (no (unknown) (unknown) Oxygen Delivery (units (unknown) date) Method Room Air unknown) (unknown) (no (unknown) (unknown) Oxygen Flow Rate (units (unknown) date) 0 unknown) (unknown) (no (unknown) (unknown) Oxygen Flow Rate (units (unknown) date) 0 unknown) (unknown) (no (unknown) (unknown) PFSH (units (unkno wn) date) unknown) (unknown) (no (unknown) (unknown) Patient is (units (unk nown) date) sitting up in his unknown) chair, lethargic. States pain yesterday was 05/17 (unknown) (no (unknown) (unknown) Patient: (units (unkno wn) date) Dominic Viveros unknown) MR#: M (unknown) (no (unknown) (unknown) Provider: (units (unkn own) date) Christianne Russo unknown) (unknown) (no (unknown) (unknown) Pulse Oximetry 97 (units (unknown) date) 93 94 unknown) (unknown) (no (unknown) (unknown) Pulse Rate 66 68 (units (unknown) date) unknown) (unknown) (no (unknown) (unknown) Respiratory Rate (units (unknown) date) 18 17 unknown) (unknown) (no (unknown) (unknown) Result Diagrams: (units (unknown) date) unknown) (unknown) (no (unknown) (unknown) S/P CABG x 3 (units (u nknown) date) (-08/2007) unknown) (unknown) (no (unknown) (unknown) S/P cervical (units (u nknown) date) spinal fusion unknown) (unknown) (no (unknown) (unknown) S/P lumbar fusion (units (unknown) date) unknown) (unknown) (no (unknown) (unknown) Signed By: (units (unk nown) date) unknown) (unknown) (no (unknown) (unknown) Smoking Status: (units (unknown) date) Former smoker unknown) (unknown) (no (unknown) (unknown) Social History (units (unknown) date) (Reviewed 02/04/22 unknown) @ 10:10 by Yas Maravilla PA-C) (unknown) (no (unknown) (unknown) Status post (units (un known) date) lumbar unknown) laminectomy. Patient has had lethargy and not appearing to (unknown) (no (unknown) (unknown) Subjective (units (unk nown) date) unknown) (unknown) (no (unknown) (unknown) Surgical History (units (unknown) date) (Reviewed 02/05/22 unknown) @ 17:55 by Evan Rangel MD) (unknown) (no (unknown) (unknown) Temperature 98.3 (units (unknown) date) F 98.5 F unknown) (unknown) (no (unknown) (unknown) Time Patient (units (u nknown) date) Seen: 09:00 unknown) (unknown) (no (unknown) (unknown) Time Spent With (units (unknown) date) Patient unknown) (unknown) (no (unknown) (unknown) Ventricular (units (un known) date) bigeminy unknown) (unknown) (no (unknown) (unknown) Vital Signs (units (un known) date) unknown) (unknown) (no (unknown) (unknown) We have seen the (units (unknown) date) patient to consult unknown) to Orthopedic surgery, patient is pod D 4. (unknown) (no (unknown) (unknown) [Embedded Image (units (unknown) date) Not Available] unknown) (unknown) (no (unknown) (unknown) alcohol intake: (units (unknown) date) current unknown) (unknown) (no (unknown) (unknown) and still is. (units ( unknown) date) Nursing has stated unknown) that he is impulsive and they have to watch (unknown) (no (unknown) (unknown) him closely to (units (unknown) date) make sure he does unknown) not move inappropriately. Review of the (unknown) (no (unknown) (unknown) household (units (unkn own) date) members: spouse unknown) (unknown) (no (unknown) (unknown) improve and the (units (unknown) date) hospital service unknown) was requested to consult on him. (unknown) (no (unknown) (unknown) participate in PT (units (unknown) date) or is confused unknown) about the directions. I also note in his (unknown) (no (unknown) (unknown) physical therapy (units (unknown) date) notes indicates unknown) that sometimes he is too lethargic to (unknown) (no (unknown) (unknown) protocol. (units (unkn own) date) unknown) (unknown) (no (unknown) (unknown) record that he (units (unknown) date) has a history of unknown) alcohol use. He has been placed on CIWA (unknown) (no (unknown) (unknown) substance use (units ( unknown) date) type: does not unknown) use (unknown) (no (unknown) (unknown) today; this time (units (unknown) date) is exclusive of unknown) procedural time. Result panel 112 (unknown) (no (unknown) (unknown) (no value) (units (unk nown) date) unknown) (unknown) (no (unknown) (unknown) Date of Service: (units (unknown) date) 02/03/22 unknown) (unknown) (no (unknown) (unknown) (no value) (units (unk nown) date) unknown) (unknown) (no (unknown) (unknown) - (units (unkno wn) date) unknown) (unknown) (no (unknown) (unknown) 02/06/22 07:06 (units (unknown) date) unknown) (unknown) (no (unknown) (unknown) [facility] (units (unknown) date) [address] [place] [address] unknown) [place] [address] (unknown) (no (unknown) (unknown) Progress Note (units ( unknown) date) unknown) (unknown) (no (unknown) (unknown) (no value) (units (unk nown) date) unknown) (unknown) (no (unknown) (unknown) 02/07/22 (units (unkno wn) date) unknown) (unknown) (no (unknown) (unknown) (past 8 hours): (units (unknown) date) unknown) (unknown) (no (unknown) (unknown) [id number] (units (unkn own) date) unknown) (unknown) (no (unknown) (unknown) 04:00 02/07/22 (units (unknown) date) unknown) (unknown) (no (unknown) (unknown) 07:25 02/07/22 (units (unknown) date) unknown) (unknown) (no (unknown) (unknown) 08:00 (units (unkno wn) date) unknown) (unknown) (no (unknown) (unknown) Abd: soft, (units (unk nown) date) non-tender, unknown) normoactive BTs (unknown) (no (unknown) (unknown) Achalasia (units (unkn own) date) unknown) (unknown) (no (unknown) (unknown) Age/Sex: 76 / M (units (unknown) date) unknown) (unknown) (no (unknown) (unknown) Anginal pain (units (u nknown) date) unknown) (unknown) (no (unknown) (unknown) Assessment + Plan (units (unknown) date) unknown) (unknown) (no (unknown) (unknown) Asthma (units (unkno wn) date) unknown) (unknown) (no (unknown) (unknown) Atrial (units (unkno wn) date) fibrillation unknown) (unknown) (no (unknown) (unknown) Blood Pressure (units (unknown) date) 132/69 130/60 unknown) (unknown) (no (unknown) (unknown) COPD (chronic (units ( unknown) date) obstructive unknown) pulmonary disease) (unknown) (no (unknown) (unknown) COVID-19 (units (unkno wn) date) unknown) (unknown) (no (unknown) (unknown) COVID-19 status: (units (unknown) date) Negative unknown) (unknown) (no (unknown) (unknown) CV: RRR, no (units (un known) date) murmur or rubs unknown) (unknown) (no (unknown) (unknown) Cervical spinal (units (unknown) date) stenosis unknown) (unknown) (no (unknown) (unknown) 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 (10/22/16) (unknown) (no (unknown) (unknown) Clinical signs (units (unknown) date) and symptoms of unknown) DVT: No (unknown) (no (unknown) (unknown) Coronary artery (units (unknown) date) disease unknown) (unknown) (no (unknown) (unknown) Critical Care (units ( unknown) date) time: unknown) (unknown) (no (unknown) (unknown) : 1945 (units (unknown) date) Acct:[id number] unknown) (unknown) (no (unknown) (unknown) Date Patient (units (u nknown) date) Seen: 02/07/22 unknown) (unknown) (no (unknown) (unknown) Deep Vein (units (unkn own) date) Thrombosis/Pulmona unknown) ry Embolism Present on Admission: No (unknown) (no (unknown) (unknown) Exam (units (unkno wn) date) unknown) (unknown) (no (unknown) (unknown) Exam Narrative: (units (unknown) date) unknown) (unknown) (no (unknown) (unknown) Extremities: moves (units (unknown) date) all 4 extremities, unknown) is ambulatory assistance, negative Otilio?s (unknown) (no (unknown) (unknown) Family History (units (unknown) date) (Reviewed 02/07/22 unknown) @ 11:16 by [facility]) (unknown) (no (unknown) (unknown) Father (units (unkno wn) date) Hypertension unknown) (unknown) (no (unknown) (unknown) Gen: Alert, (units (unk nown) date) lethargic, unknown) chronically ill appearing 76 y.o. male, sitting (unknown) (no (unknown) (unknown) H/O arthroscopic (units (unknown) date) knee surgery unknown) (11/14/17) (unknown) (no (unknown) (unknown) HEENT: (units (unkno wn) date) normocephalic, unknown) atraumatic, conjunctiva clear, sclera non-icteric, oral (unknown) (no (unknown) (unknown) Heart rate > 100: (units (unknown) date) No unknown) (unknown) (no (unknown) (unknown) Hemoptysis: No (units (unknown) date) unknown) (unknown) (no (unknown) (unknown) History of PE or (units (unknown) date) DVT: No unknown) (unknown) (no (unknown) (unknown) History of aortic (units (unknown) date) dissection unknown) () (unknown) (no (unknown) (unknown) History of (units (unk nown) date) arthroplasty of unknown) left knee (05/24/19) (unknown) (no (unknown) (unknown) History of (units (unk nown) date) arthroplasty of unknown) right knee (unknown) (no (unknown) (unknown) History of (units (unk nown) date) bilateral total unknown) hip arthroplasty (unknown) (no (unknown) (unknown) History of (units (unk nown) date) cardiac cath unknown) () (unknown) (no (unknown) (unknown) History of (units (unk nown) date) esophageal surgery unknown) (unknown) (no (unknown) (unknown) History of (units (unk nown) date) incision and unknown) drainage () (unknown) (no (unknown) (unknown) History of prior (units (unknown) date) ablation treatment unknown) () (unknown) (no (unknown) (unknown) History of (units (unk nown) date) surgery unknown) (unknown) (no (unknown) (unknown) Hx of (units (unkno wn) date) cholecystectomy unknown) (unknown) (no (unknown) (unknown) Hx of hernia (units (u nknown) date) repair unknown) (unknown) (no (unknown) (unknown) Hx of sinus (units (un known) date) surgery unknown) (unknown) (no (unknown) (unknown) Hypertension (units (u nknown) date) unknown) (unknown) (no (unknown) (unknown) I spent a total (units (unknown) date) of [] minutes of unknown) critical care time on this patient's care (unknown) (no (unknown) (unknown) Immobilization at (units (unknown) date) least 3 days or unknown) surg in previous 4 weeks: Yes (unknown) (no (unknown) (unknown) Interval history: (units (unknown) date) unknown) (unknown) (no (unknown) (unknown) Ischemic (units (unkno wn) date) cardiomyopathy unknown) (unknown) (no (unknown) (unknown) Labs (units (unkno wn) date) unknown) (unknown) (no (unknown) (unknown) Malignancy (units (unk nown) date) w/Treatment within unknown) 6 months or palliative: Yes (unknown) (no (unknown) (unknown) Medical History (units (unknown) date) (Reviewed 02/07/22 unknown) @ 11:16 [facility]) (unknown) (no (unknown) (unknown) Mother (units (unknown) date) Stroke unknown) (unknown) (no (unknown) (unknown) Narcotic (units (unkno wn) date) dependence unknown) (unknown) (no (unknown) (unknown) Narrative (units (unkn own) date) unknown) (unknown) (no (unknown) (unknown) Neck pain, (units (unk nown) date) chronic unknown) (unknown) (no (unknown) (unknown) Neck: supple, (units ( unknown) date) full ROM, no JVD, unknown) trachea is midline (unknown) (no (unknown) (unknown) Neuro: very weak (units (unknown) date) and lethargic. unknown) Speech is soft but clear (unknown) (no (unknown) (unknown) Objective (units (unkn own) date) unknown) (unknown) (no (unknown) (unknown) Oxygen Delivery (units (unknown) date) Method Room Air unknown) (unknown) (no (unknown) (unknown) Oxygen Delivery (units (unknown) date) Method Room Air unknown) (unknown) (no (unknown) (unknown) Oxygen Flow Rate (units (unknown) date) 0 unknown) (unknown) (no (unknown) (unknown) Oxygen Flow Rate (units (unknown) date) 0 unknown) (unknown) (no (unknown) (unknown) PE is #1 Dx or (units (unknown) date) equally likely: No unknown) (unknown) (no (unknown) (unknown) PFSH (units (unkno wn) date) unknown) (unknown) (no (unknown) (unknown) Patient is (units (unk nown) date) sitting up in his unknown) chair, lethargic. States pain yesterday was 05/17 (unknown) (no (unknown) (unknown) Patient: (units (unkno wn) date) Dominic Viveros unknown) MR#: M (unknown) (no (unknown) (unknown) Provider: (units (unkn own) date) Christianne Russo unknown) (unknown) (no (unknown) (unknown) Psyche: normal (units (unknown) date) mood and affect. unknown) (unknown) (no (unknown) (unknown) Pulse Oximetry 97 (units (unknown) date) 93 94 unknown) (unknown) (no (unknown) (unknown) Pulse Rate 66 68 (units (unknown) date) unknown) (unknown) (no (unknown) (unknown) Quality (units (unkno wn) date) unknown) (unknown) (no (unknown) (unknown) Resp: Lungs (units (un known) date) sounds are unknown) diminished, non-labored breathing (unknown) (no (unknown) (unknown) Respiratory Rate (units (unknown) date) 18 17 unknown) (unknown) (no (unknown) (unknown) Result Diagrams: (units (unknown) date) unknown) (unknown) (no (unknown) (unknown) Result date/Date (units (unknown) date) tested (Pos, unknown) Neg/Pending): 03/03/22 (unknown) (no (unknown) (unknown) S/P CABG x 3 (units (u nknown) date) () unknown) (unknown) (no (unknown) (unknown) S/P cervical (units (u nknown) date) spinal fusion unknown) (unknown) (no (unknown) (unknown) S/P lumbar fusion (units (unknown) date) unknown) (unknown) (no (unknown) (unknown) Scores (units (unkno wn) date) unknown) (unknown) (no (unknown) (unknown) Signed By: (units (unk nown) date) unknown) (unknown) (no (unknown) (unknown) Skin: no lesions (units (unknown) date) or rashes, dry and unknown) intact (unknown) (no (unknown) (unknown) Smoking Status: (units (unknown) date) Former smoker unknown) (unknown) (no (unknown) (unknown) Social History (units (unknown) date) (Reviewed 02/07/22 unknown) @ 11:16 [facility]) (unknown) (no (unknown) (unknown) Status post (units (un known) date) lumbar unknown) laminectomy. Patient has had lethargy and not appearing to (unknown) (no (unknown) (unknown) Subjective (units (unk nown) date) unknown) (unknown) (no (unknown) (unknown) Surgical History (units (unknown) date) (Reviewed 02/07/22 unknown) @ 11:16 [facility]) (unknown) (no (unknown) (unknown) Temperature 98.3 (units (unknown) date) F 98.5 F unknown) (unknown) (no (unknown) (unknown) Time Patient (units (u nknown) date) Seen: 09:00 unknown) (unknown) (no (unknown) (unknown) Time Spent With (units (unknown) date) Patient unknown) (unknown) (no (unknown) (unknown) VTE (units (unkno wn) date) unknown) (unknown) (no (unknown) (unknown) Ventricular (units (un known) date) bigeminy unknown) (unknown) (no (unknown) (unknown) Vital Signs (units (un known) date) unknown) (unknown) (no (unknown) (unknown) We have seen the (units (unknown) date) patient to consult unknown) to Orthopedic surgery, patient is pod D 4. (unknown) (no (unknown) (unknown) Wells' Criteria (units (unknown) date) for PE unknown) (unknown) (no (unknown) (unknown) Kenny' PE Score (units (unknown) date) total: 2.5 unknown) (unknown) (no (unknown) (unknown) [Embedded Image (units (unknown) date) Not Available] unknown) (unknown) (no (unknown) (unknown) alcohol intake: (units (unknown) date) current unknown) (unknown) (no (unknown) (unknown) and still is. (units ( unknown) date) Nursing has stated unknown) that he is impulsive and they have to watch (unknown) (no (unknown) (unknown) him closely to (units (unknown) date) make sure he does unknown) not move inappropriately. Review of the (unknown) (no (unknown) (unknown) household (units (unkn own) date) members: spouse unknown) (unknown) (no (unknown) (unknown) improve and the (units (unknown) date) hospital service unknown) was requested to consult on him. (unknown) (no (unknown) (unknown) mucosa pink and (units (unknown) date) moist unknown) (unknown) (no (unknown) (unknown) participate in PT (units (unknown) date) or is confused unknown) about the directions. I also note in his (unknown) (no (unknown) (unknown) physical therapy (units (unknown) date) notes indicates unknown) that sometimes he is too lethargic to (unknown) (no (unknown) (unknown) protocol. (units (unkn own) date) unknown) (unknown) (no (unknown) (unknown) record that he (units (unknown) date) has a history of unknown) alcohol use. He has been placed on CIWA (unknown) (no (unknown) (unknown) sign (units (unkno wn) date) unknown) (unknown) (no (unknown) (unknown) substance use (units ( unknown) date) type: does not unknown) use (unknown) (no (unknown) (unknown) today; this time (units (unknown) date) is exclusive of unknown) procedural time. (unknown) (no (unknown) (unknown) up in a chair (units ( unknown) date) unknown) Result panel 113 (unknown) (no (unknown) (unknown) (no value) (units (unk nown) date) unknown) (unknown) (no (unknown) (unknown) Date of Service: (units (unknown) date) 02/03/22 unknown) (unknown) (no (unknown) (unknown) (no value) (units (unk nown) date) unknown) (unknown) (no (unknown) (unknown) - (units (unkno wn) date) unknown) (unknown) (no (unknown) (unknown) 02/06/22 07:06 (units (unknown) date) unknown) (unknown) (no (unknown) (unknown) [facility] (units (unknown) date) [address] unknown) [place] [address] (unknown) (no (unknown) (unknown) Progress Note (units ( unknown) date) unknown) (unknown) (no (unknown) (unknown) (no value) (units (unk nown) date) unknown) (unknown) (no (unknown) (unknown) Librium taper. (units (unknown) date) unknown) (unknown) (no (unknown) (unknown) bedtime (units (unkno wn) date) unknown) (unknown) (no (unknown) (unknown) 02/07/22 (units (unkno wn) date) unknown) (unknown) (no (unknown) (unknown) Surrogate (units (unkn own) date) decision maker is unknown) in patient?s record [If Yes, STOP here]: Yes (unknown) (no (unknown) (unknown) (past 8 hours): (units (unknown) date) unknown) (unknown) (no (unknown) (unknown) * Alcohol use, (units (unknown) date) CIWA protocol in unknown) place, ammonia level has been ordered, consider (unknown) (no (unknown) (unknown) * Question (units (unk nown) date) polypharmacy, unknown) patient was stated to be taking trazodone 400 mg at (unknown) (no (unknown) (unknown) [id number] (units (unkn own) date) unknown) (unknown) (no (unknown) (unknown) 04:00 02/07/22 (units (unknown) date) unknown) (unknown) (no (unknown) (unknown) 07:25 02/07/22 (units (unknown) date) unknown) (unknown) (no (unknown) (unknown) 08:00 (units (unkno wn) date) unknown) (unknown) (no (unknown) (unknown) 1. Acute (units (unkno wn) date) encephalopathy the unknown) origin unknown (unknown) (no (unknown) (unknown) Abd: soft, (units (unk nown) date) non-tender, unknown) normoactive BTs (unknown) (no (unknown) (unknown) Achalasia (units (unkn own) date) unknown) (unknown) (no (unknown) (unknown) Age/Sex: 76 / M (units (unknown) date) unknown) (unknown) (no (unknown) (unknown) Anginal pain (units (u nknown) date) unknown) (unknown) (no (unknown) (unknown) Assessment + Plan (units (unknown) date) unknown) (unknown) (no (unknown) (unknown) Assessment + Plan (units (unknown) date) narrative: unknown) (unknown) (no (unknown) (unknown) Asthma (units (unkno wn) date) unknown) (unknown) (no (unknown) (unknown) Atrial (units (unkno wn) date) fibrillation unknown) (unknown) (no (unknown) (unknown) Blood Pressure (units (unknown) date) 132/69 130/60 unknown) (unknown) (no (unknown) (unknown) COPD (chronic (units ( unknown) date) obstructive unknown) pulmonary disease) (unknown) (no (unknown) (unknown) COVID-19 (units (unkno wn) date) unknown) (unknown) (no (unknown) (unknown) COVID-19 status: (units (unknown) date) Negative unknown) (unknown) (no (unknown) (unknown) CV: RRR, no (units (un known) date) murmur or rubs unknown) (unknown) (no (unknown) (unknown) Cervical spinal (units (unknown) date) stenosis unknown) (unknown) (no (unknown) (unknown) 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 (10/22/16) (unknown) (no (unknown) (unknown) Clinical signs (units (unknown) date) and symptoms of unknown) DVT: No (unknown) (no (unknown) (unknown) Coronary artery (units (unknown) date) disease unknown) (unknown) (no (unknown) (unknown) Critical Care (units ( unknown) date) time: unknown) (unknown) (no (unknown) (unknown) : 1945 (units (unknown) date) Acct:[id number] unknown) (unknown) (no (unknown) (unknown) Date Patient (units (u nknown) date) Seen: 02/07/22 unknown) (unknown) (no (unknown) (unknown) Deep Vein (units (unkn own) date) Thrombosis/Pulmona unknown) ry Embolism Present on Admission: No (unknown) (no (unknown) (unknown) Exam (units (unkno wn) date) unknown) (unknown) (no (unknown) (unknown) Exam Narrative: (units (unknown) date) unknown) (unknown) (no (unknown) (unknown) Extremities: moves (units (unknown) date) all 4 extremities, unknown) is ambulatory assistance, negative Otilio?s (unknown) (no (unknown) (unknown) Family History (units (unknown) date) (Reviewed 02/07/22 unknown) @ 11:16 by [facility]) (unknown) (no (unknown) (unknown) Father (units (unkno wn) date) Hypertension unknown) (unknown) (no (unknown) (unknown) Gen: Alert, (units (unk nown) date) lethargic, unknown) chronically ill appearing 76 y.o. male, sitting (unknown) (no (unknown) (unknown) H/O arthroscopic (units (unknown) date) knee surgery unknown) (11/14/17) (unknown) (no (unknown) (unknown) HEENT: (units (unkno wn) date) normocephalic, unknown) atraumatic, conjunctiva clear, sclera non-icteric, oral (unknown) (no (unknown) (unknown) Heart rate > 100: (units (unknown) date) No unknown) (unknown) (no (unknown) (unknown) Hemoptysis: No (units (unknown) date) unknown) (unknown) (no (unknown) (unknown) History of PE or (units (unknown) date) DVT: No unknown) (unknown) (no (unknown) (unknown) History of aortic (units (unknown) date) dissection unknown) () (unknown) (no (unknown) (unknown) History of (units (unk nown) date) arthroplasty of unknown) left knee (05/24/19) (unknown) (no (unknown) (unknown) History of (units (unk nown) date) arthroplasty of unknown) right knee (unknown) (no (unknown) (unknown) History of (units (unk nown) date) bilateral total unknown) hip arthroplasty (unknown) (no (unknown) (unknown) History of (units (unk nown) date) cardiac cath unknown) () (unknown) (no (unknown) (unknown) History of (units (unk nown) date) esophageal surgery unknown) (unknown) (no (unknown) (unknown) History of (units (unk nown) date) incision and unknown) drainage (-2016) (unknown) (no (unknown) (unknown) History of prior (units (unknown) date) ablation treatment unknown) () (unknown) (no (unknown) (unknown) History of (units (unk nown) date) surgery unknown) (unknown) (no (unknown) (unknown) Hx of (units (unkno wn) date) cholecystectomy unknown) (unknown) (no (unknown) (unknown) Hx of hernia (units (u nknown) date) repair unknown) (unknown) (no (unknown) (unknown) Hx of sinus (units (un known) date) surgery unknown) (unknown) (no (unknown) (unknown) Hypertension (units (u nknown) date) unknown) (unknown) (no (unknown) (unknown) I confirm the (units (u nknown) date) patient?s Advance unknown) Care Plan is present, Code status is documented, (unknown) (no (unknown) (unknown) I spent a total (units (unknown) date) of [] minutes of unknown) critical care time on this patient's care (unknown) (no (unknown) (unknown) Immobilization at (units (unknown) date) least 3 days or unknown) surg in previous 4 weeks: Yes (unknown) (no (unknown) (unknown) Interval history: (units (unknown) date) unknown) (unknown) (no (unknown) (unknown) Ischemic (units (unkno wn) date) cardiomyopathy unknown) (unknown) (no (unknown) (unknown) Labs (units (unkno wn) date) unknown) (unknown) (no (unknown) (unknown) MIPS - Admit (units (u nknown) date) unknown) (unknown) (no (unknown) (unknown) MIPS - DC (units (unkn own) date) unknown) (unknown) (no (unknown) (unknown) Malignancy (units (unk nown) date) w/Treatment within unknown) 6 months or palliative: Yes (unknown) (no (unknown) (unknown) Medical History (units (unknown) date) (Reviewed 02/07/22 unknown) @ 11:16 by [facility]) (unknown) (no (unknown) (unknown) Dominic Viveros (units (unknown) date) is a 76 year old unknown) male postoperative day 4 lumbar laminectomy. (unknown) (no (unknown) (unknown) Mother (units (unknown) date) Stroke unknown) (unknown) (no (unknown) (unknown) Narcotic (units (unkno wn) date) dependence unknown) (unknown) (no (unknown) (unknown) Narrative (units (unkn own) date) unknown) (unknown) (no (unknown) (unknown) Neck pain, (units (unk nown) date) chronic unknown) (unknown) (no (unknown) (unknown) Neck: supple, (units ( unknown) date) full ROM, no JVD, unknown) trachea is midline (unknown) (no (unknown) (unknown) Neuro: very weak (units (unknown) date) and lethargic. unknown) Speech is soft but clear (unknown) (no (unknown) (unknown) Objective (units (unkn own) date) unknown) (unknown) (no (unknown) (unknown) Oxygen Delivery (units (unknown) date) Method Room Air unknown) (unknown) (no (unknown) (unknown) Oxygen Delivery (units (unknown) date) Method Room Air unknown) (unknown) (no (unknown) (unknown) Oxygen Flow Rate (units (unknown) date) 0 unknown) (unknown) (no (unknown) (unknown) Oxygen Flow Rate (units (unknown) date) 0 unknown) (unknown) (no (unknown) (unknown) PE is #1 Dx or (units (unknown) date) equally likely: No unknown) (unknown) (no (unknown) (unknown) PFSH (units (unkno wn) date) unknown) (unknown) (no (unknown) (unknown) Patient is (units (unk nown) date) sitting up in his unknown) chair, lethargic. States pain yesterday was 05/17 (unknown) (no (unknown) (unknown) Patient: (units (unkno wn) date) Dominic Viveros unknown) MR#: M (unknown) (no (unknown) (unknown) Provider: (units (unkn own) date) Christianne Russo unknown) (unknown) (no (unknown) (unknown) Psyche: normal (units (unknown) date) mood and affect. unknown) (unknown) (no (unknown) (unknown) Pulse Oximetry 97 (units (unknown) date) 93 94 unknown) (unknown) (no (unknown) (unknown) Pulse Rate 66 68 (units (unknown) date) unknown) (unknown) (no (unknown) (unknown) Quality (units (unkno wn) date) unknown) (unknown) (no (unknown) (unknown) Resp: Lungs (units (un known) date) sounds are unknown) diminished, non-labored breathing (unknown) (no (unknown) (unknown) Respiratory Rate (units (unknown) date) 18 17 unknown) (unknown) (no (unknown) (unknown) Result Diagrams: (units (unknown) date) unknown) (unknown) (no (unknown) (unknown) Result date/Date (units (unknown) date) tested (Pos, unknown) Neg/Pending): 03/03/22 (unknown) (no (unknown) (unknown) S/P CABG x 3 (units (u nknown) date) () unknown) (unknown) (no (unknown) (unknown) S/P cervical (units (u nknown) date) spinal fusion unknown) (unknown) (no (unknown) (unknown) S/P lumbar fusion (units (unknown) date) unknown) (unknown) (no (unknown) (unknown) Scores (units (unkno wn) date) unknown) (unknown) (no (unknown) (unknown) Signed By: (units (unk nown) date) unknown) (unknown) (no (unknown) (unknown) Skin: no lesions (units (unknown) date) or rashes, dry and unknown) intact (unknown) (no (unknown) (unknown) Smoking Status: (units (unknown) date) Former smoker unknown) (unknown) (no (unknown) (unknown) Social History (units (unknown) date) (Reviewed 02/07/22 unknown) @ 11:16 by [facility]) (unknown) (no (unknown) (unknown) Status post (units (un known) date) lumbar unknown) laminectomy. Patient has had lethargy and not appearing to (unknown) (no (unknown) (unknown) Subjective (units (unk nown) date) unknown) (unknown) (no (unknown) (unknown) Surgical History (units (unknown) date) (Reviewed 02/07/22 unknown) @ 11:16 by [facility]) (unknown) (no (unknown) (unknown) Temperature 98.3 (units (unknown) date) F 98.5 F unknown) (unknown) (no (unknown) (unknown) The patient has (units (unknown) date) current or prior unknown) documentation of left ventricular ejection (unknown) (no (unknown) (unknown) Time Patient (units (u nknown) date) Seen: 09:00 unknown) (unknown) (no (unknown) (unknown) Time Spent With (units (unknown) date) Patient unknown) (unknown) (no (unknown) (unknown) VTE (units (unkno wn) date) unknown) (unknown) (no (unknown) (unknown) Ventricular (units (un known) date) bigeminy unknown) (unknown) (no (unknown) (unknown) Vital Signs (units (un known) date) unknown) (unknown) (no (unknown) (unknown) We have seen the (units (unknown) date) patient to consult unknown) to Orthopedic surgery, patient is pod D 4. (unknown) (no (unknown) (unknown) Wells' Criteria (units (unknown) date) for PE unknown) (unknown) (no (unknown) (unknown) Wells' PE Score (units (unknown) date) total: 2.5 unknown) (unknown) (no (unknown) (unknown) [Embedded Image (units (unknown) date) Not Available] unknown) (unknown) (no (unknown) (unknown) alcohol intake: (units (unknown) date) current unknown) (unknown) (no (unknown) (unknown) and still is. (units ( unknown) date) Nursing has stated unknown) that he is impulsive and they have to watch (unknown) (no (unknown) (unknown) fraction (LVEF) (units (unknown) date) less than 40%, or unknown) moderate or severely depressed left (unknown) (no (unknown) (unknown) him closely to (units (unknown) date) make sure he does unknown) not move inappropriately. Review of the (unknown) (no (unknown) (unknown) household (units (unkn own) date) members: spouse unknown) (unknown) (no (unknown) (unknown) improve and the (units (unknown) date) hospital service unknown) was requested to consult on him. (unknown) (no (unknown) (unknown) mucosa pink and (units (unknown) date) moist unknown) (unknown) (no (unknown) (unknown) participate in PT (units (unknown) date) or is confused unknown) about the directions. I also note in his (unknown) (no (unknown) (unknown) physical therapy (units (unknown) date) notes indicates unknown) that sometimes he is too lethargic to (unknown) (no (unknown) (unknown) protocol. (units (unkn own) date) unknown) (unknown) (no (unknown) (unknown) record that he (units (unknown) date) has a history of unknown) alcohol use. He has been placed on CIWA (unknown) (no (unknown) (unknown) sign (units (unkno wn) date) unknown) (unknown) (no (unknown) (unknown) substance use (units ( unknown) date) type: does not unknown) use (unknown) (no (unknown) (unknown) today; this time (units (unknown) date) is exclusive of unknown) procedural time. (unknown) (no (unknown) (unknown) up in a chair (units ( unknown) date) unknown) (unknown) (no (unknown) (unknown) ventricular (units (un known) date) systolic unknown) function.: No Result panel 114 (unknown) (no (unknown) (unknown) (no value) (units (unk nown) date) unknown) (unknown) (no (unknown) (unknown) Date of Service: (units (unknown) date) 02/03/22 unknown) (unknown) (no (unknown) (unknown) (no value) (units (unk nown) date) unknown) (unknown) (no (unknown) (unknown) - (units (unkno wn) date) unknown) (unknown) (no (unknown) (unknown) 02/06/22 07:06 (units (unknown) date) unknown) (unknown) (no (unknown) (unknown) [facility] (units (unknown) date) [address] unknown) [place] [address] (unknown) (no (unknown) (unknown) Progress Note (units ( unknown) date) unknown) (unknown) (no (unknown) (unknown) (no value) (units (unk nown) date) unknown) (unknown) (no (unknown) (unknown) Librium taper. (units (unknown) date) unknown) (unknown) (no (unknown) (unknown) bedtime (units (unkno wn) date) unknown) (unknown) (no (unknown) (unknown) etoh withdrawal (units (unknown) date) unknown) (unknown) (no (unknown) (unknown) further workup if (units (unknown) date) clinical status unknown) changes (unknown) (no (unknown) (unknown) 02/07/22 (units (unkno wn) date) unknown) (unknown) (no (unknown) (unknown) Surrogate (units (unkn own) date) decision maker is unknown) in patient?s record [If Yes, STOP here]: Yes (unknown) (no (unknown) (unknown) (past 8 hours): (units (unknown) date) unknown) (unknown) (no (unknown) (unknown) * ABG ordered and (units (unknown) date) CO2 was not unknown) consistent with hypercarbia (unknown) (no (unknown) (unknown) * Alcohol use, (units (unknown) date) CIWA protocol in unknown) place, ammonia level has been ordered, consider (unknown) (no (unknown) (unknown) * CT abdomen (units (u nknown) date) showed unknown) gastroenteritis vs ileus, no significant diarrhea, consider (unknown) (no (unknown) (unknown) * CT head ordered (units (unknown) date) and negative unknown) (unknown) (no (unknown) (unknown) * Question (units (unk nown) date) polypharmacy, unknown) patient was stated to be taking trazodone 400 mg at (unknown) (no (unknown) (unknown) * added (units (unkno wn) date) azithromycin, unknown) changed to orals today. (unknown) (no (unknown) (unknown) * chest xray and (units (unknown) date) ua were ordered unknown) for admitting service which were negative (unknown) (no (unknown) (unknown) * etiology not (units (unknown) date) clear at the unknown) moment, he is mostly lethargic, think less likely (unknown) (no (unknown) (unknown) * labs look (units (unk nown) date) reassuring with unknown) normal white count and no concerning findings on bmp (unknown) (no (unknown) (unknown) * mild acute (units (u nknown) date) exacerbation unknown) (unknown) (no (unknown) (unknown) * ordered nebs (units (unknown) date) and steroids as unknown) well (unknown) (no (unknown) (unknown) * repeat ua, was (units (unknown) date) also negative unknown) (unknown) (no (unknown) (unknown) * suspect related (units (unknown) date) to delirium in unknown) setting of hospital and recent surgery (unknown) (no (unknown) (unknown) [id number] (units (unkn own) date) unknown) (unknown) (no (unknown) (unknown) 04:00 02/07/22 (units (unknown) date) unknown) (unknown) (no (unknown) (unknown) 07:25 02/07/22 (units (unknown) date) unknown) (unknown) (no (unknown) (unknown) 08:00 (units (unkno wn) date) unknown) (unknown) (no (unknown) (unknown) 1. Acute (units (unkno wn) date) encephalopathy the unknown) origin unknown (unknown) (no (unknown) (unknown) 2. COPD (units (unkno wn) date) unknown) (unknown) (no (unknown) (unknown) Abd: soft, (units (unk nown) date) non-tender, unknown) normoactive BTs (unknown) (no (unknown) (unknown) Achalasia (units (unkn own) date) unknown) (unknown) (no (unknown) (unknown) Age/Sex: 76 / M (units (unknown) date) unknown) (unknown) (no (unknown) (unknown) Anginal pain (units (u nknown) date) unknown) (unknown) (no (unknown) (unknown) Assessment + Plan (units (unknown) date) unknown) (unknown) (no (unknown) (unknown) Assessment + Plan (units (unknown) date) narrative: unknown) (unknown) (no (unknown) (unknown) Asthma (units (unkno wn) date) unknown) (unknown) (no (unknown) (unknown) Atrial (units (unkno wn) date) fibrillation unknown) (unknown) (no (unknown) (unknown) Blood Pressure (units (unknown) date) 132/69 130/60 unknown) (unknown) (no (unknown) (unknown) COPD (chronic (units ( unknown) date) obstructive unknown) pulmonary disease) (unknown) (no (unknown) (unknown) COVID-19 (units (unkno wn) date) unknown) (unknown) (no (unknown) (unknown) COVID-19 status: (units (unknown) date) Negative unknown) (unknown) (no (unknown) (unknown) CV: RRR, no (units (un known) date) murmur or rubs unknown) (unknown) (no (unknown) (unknown) Cervical spinal (units (unknown) date) stenosis unknown) (unknown) (no (unknown) (unknown) 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 (10/22/16) (unknown) (no (unknown) (unknown) Clinical signs (units (unknown) date) and symptoms of unknown) DVT: No (unknown) (no (unknown) (unknown) Coronary artery (units (unknown) date) disease unknown) (unknown) (no (unknown) (unknown) Critical Care (units ( unknown) date) time: unknown) (unknown) (no (unknown) (unknown) : 1945 (units (unknown) date) Acct:[id number] unknown) (unknown) (no (unknown) (unknown) Date Patient (units (u nknown) date) Seen: 02/07/22 unknown) (unknown) (no (unknown) (unknown) Deep Vein (units (unkn own) date) Thrombosis/Pulmona unknown) ry Embolism Present on Admission: No (unknown) (no (unknown) (unknown) Exam (units (unkno wn) date) unknown) (unknown) (no (unknown) (unknown) Exam Narrative: (units (unknown) date) unknown) (unknown) (no (unknown) (unknown) Extremities: moves (units (unknown) date) all 4 extremities, unknown) is ambulatory assistance, negative Otilio?s (unknown) (no (unknown) (unknown) Family History (units (unknown) date) (Reviewed 02/07/22 unknown) @ 11:16 by [facility]) (unknown) (no (unknown) (unknown) Father (units (unkno wn) date) Hypertension unknown) (unknown) (no (unknown) (unknown) Gen: Alert, (units (unk nown) date) lethargic, unknown) chronically ill appearing 76 y.o. male, sitting (unknown) (no (unknown) (unknown) H/O arthroscopic (units (unknown) date) knee surgery unknown) (11/14/17) (unknown) (no (unknown) (unknown) HEENT: (units (unkno wn) date) normocephalic, unknown) atraumatic, conjunctiva clear, sclera non-icteric, oral (unknown) (no (unknown) (unknown) Heart rate > 100: (units (unknown) date) No unknown) (unknown) (no (unknown) (unknown) Hemoptysis: No (units (unknown) date) unknown) (unknown) (no (unknown) (unknown) History of PE or (units (unknown) date) DVT: No unknown) (unknown) (no (unknown) (unknown) History of aortic (units (unknown) date) dissection unknown) () (unknown) (no (unknown) (unknown) History of (units (unk nown) date) arthroplasty of unknown) left knee (05/24/19) (unknown) (no (unknown) (unknown) History of (units (unk nown) date) arthroplasty of unknown) right knee (unknown) (no (unknown) (unknown) History of (units (unk nown) date) bilateral total unknown) hip arthroplasty (unknown) (no (unknown) (unknown) History of (units (unk nown) date) cardiac cath unknown) () (unknown) (no (unknown) (unknown) History of (units (unk nown) date) esophageal surgery unknown) (unknown) (no (unknown) (unknown) History of (units (unk nown) date) incision and unknown) drainage () (unknown) (no (unknown) (unknown) History of prior (units (unknown) date) ablation treatment unknown) () (unknown) (no (unknown) (unknown) History of (units (unk nown) date) surgery unknown) (unknown) (no (unknown) (unknown) Hx of (units (unkno wn) date) cholecystectomy unknown) (unknown) (no (unknown) (unknown) Hx of hernia (units (u nknown) date) repair unknown) (unknown) (no (unknown) (unknown) Hx of sinus (units (un known) date) surgery unknown) (unknown) (no (unknown) (unknown) Hypertension (units (u nknown) date) unknown) (unknown) (no (unknown) (unknown) I confirm the (units (u nknown) date) patient?s Advance unknown) Care Plan is present, Code status is documented, (unknown) (no (unknown) (unknown) I spent a total (units (unknown) date) of [] minutes of unknown) critical care time on this patient's care (unknown) (no (unknown) (unknown) Immobilization at (units (unknown) date) least 3 days or unknown) surg in previous 4 weeks: Yes (unknown) (no (unknown) (unknown) Interval history: (units (unknown) date) unknown) (unknown) (no (unknown) (unknown) Ischemic (units (unkno wn) date) cardiomyopathy unknown) (unknown) (no (unknown) (unknown) Labs (units (unkno wn) date) unknown) (unknown) (no (unknown) (unknown) MIPS - Admit (units (u nknown) date) unknown) (unknown) (no (unknown) (unknown) MIPS - DC (units (unkn own) date) unknown) (unknown) (no (unknown) (unknown) Malignancy (units (unk nown) date) w/Treatment within unknown) 6 months or palliative: Yes (unknown) (no (unknown) (unknown) Medical History (units (unknown) date) (Reviewed 02/07/22 unknown) @ 11:16 by [facility]) (unknown) (no (unknown) (unknown) Dominic Viveros (units (unknown) date) is a 76 year old unknown) male postoperative day 4 lumbar laminectomy. (unknown) (no (unknown) (unknown) Mother (units (unknown) date) Stroke unknown) (unknown) (no (unknown) (unknown) Narcotic (units (unkno wn) date) dependence unknown) (unknown) (no (unknown) (unknown) Narrative (units (unkn own) date) unknown) (unknown) (no (unknown) (unknown) Neck pain, (units (unk nown) date) chronic unknown) (unknown) (no (unknown) (unknown) Neck: supple, (units ( unknown) date) full ROM, no JVD, unknown) trachea is midline (unknown) (no (unknown) (unknown) Neuro: very weak (units (unknown) date) and lethargic. unknown) Speech is soft but clear (unknown) (no (unknown) (unknown) Objective (units (unkn own) date) unknown) (unknown) (no (unknown) (unknown) Oxygen Delivery (units (unknown) date) Method Room Air unknown) (unknown) (no (unknown) (unknown) Oxygen Delivery (units (unknown) date) Method Room Air unknown) (unknown) (no (unknown) (unknown) Oxygen Flow Rate (units (unknown) date) 0 unknown) (unknown) (no (unknown) (unknown) Oxygen Flow Rate (units (unknown) date) 0 unknown) (unknown) (no (unknown) (unknown) PE is #1 Dx or (units (unknown) date) equally likely: No unknown) (unknown) (no (unknown) (unknown) PFSH (units (unkno wn) date) unknown) (unknown) (no (unknown) (unknown) Patient is (units (unk nown) date) sitting up in his unknown) chair, lethargic. States pain yesterday was 05/17 (unknown) (no (unknown) (unknown) Patient: (units (unkno wn) date) Dominic Viveros unknown) MR#: M (unknown) (no (unknown) (unknown) Provider: (units (unkn own) date) Christianne Russo unknown) (unknown) (no (unknown) (unknown) Psyche: normal (units (unknown) date) mood and affect. unknown) (unknown) (no (unknown) (unknown) Pulse Oximetry 97 (units (unknown) date) 93 94 unknown) (unknown) (no (unknown) (unknown) Pulse Rate 66 68 (units (unknown) date) unknown) (unknown) (no (unknown) (unknown) Quality (units (unkno wn) date) unknown) (unknown) (no (unknown) (unknown) Resp: Lungs (units (un known) date) sounds are unknown) diminished, non-labored breathing (unknown) (no (unknown) (unknown) Respiratory Rate (units (unknown) date) 18 17 unknown) (unknown) (no (unknown) (unknown) Result Diagrams: (units (unknown) date) unknown) (unknown) (no (unknown) (unknown) Result date/Date (units (unknown) date) tested (Pos, unknown) Neg/Pending): 07/27/22 (unknown) (no (unknown) (unknown) S/P CABG x 3 (units (u nknown) date) () unknown) (unknown) (no (unknown) (unknown) S/P cervical (units (u nknown) date) spinal fusion unknown) (unknown) (no (unknown) (unknown) S/P lumbar fusion (units (unknown) date) unknown) (unknown) (no (unknown) (unknown) Scores (units (unkno wn) date) unknown) (unknown) (no (unknown) (unknown) Signed By: (units (unk nown) date) unknown) (unknown) (no (unknown) (unknown) Skin: no lesions (units (unknown) date) or rashes, dry and unknown) intact (unknown) (no (unknown) (unknown) Smoking Status: (units (unknown) date) Former smoker unknown) (unknown) (no (unknown) (unknown) Social History (units (unknown) date) (Reviewed 02/07/22 unknown) @ 11:16 by [facility]) (unknown) (no (unknown) (unknown) Status post (units (un known) date) lumbar unknown) laminectomy. Patient has had lethargy and not appearing to (unknown) (no (unknown) (unknown) Subjective (units (unk nown) date) unknown) (unknown) (no (unknown) (unknown) Surgical History (units (unknown) date) (Reviewed 02/07/22 unknown) @ 11:16 by [facility]) (unknown) (no (unknown) (unknown) Temperature 98.3 (units (unknown) date) F 98.5 F unknown) (unknown) (no (unknown) (unknown) The patient has (units (unknown) date) current or prior unknown) documentation of left ventricular ejection (unknown) (no (unknown) (unknown) Time Patient (units (u nknown) date) Seen: 09:00 unknown) (unknown) (no (unknown) (unknown) Time Spent With (units (unknown) date) Patient unknown) (unknown) (no (unknown) (unknown) VTE (units (unkno wn) date) unknown) (unknown) (no (unknown) (unknown) Ventricular (units (un known) date) bigeminy unknown) (unknown) (no (unknown) (unknown) Vital Signs (units (un known) date) unknown) (unknown) (no (unknown) (unknown) We have seen the (units (unknown) date) patient to consult unknown) to Orthopedic surgery, patient is pod D 4. (unknown) (no (unknown) (unknown) Wells' Criteria (units (unknown) date) for PE unknown) (unknown) (no (unknown) (unknown) Wells' PE Score (units (unknown) date) total: 2.5 unknown) (unknown) (no (unknown) (unknown) [Embedded Image (units (unknown) date) Not Available] unknown) (unknown) (no (unknown) (unknown) alcohol intake: (units (unknown) date) current unknown) (unknown) (no (unknown) (unknown) and still is. (units ( unknown) date) Nursing has stated unknown) that he is impulsive and they have to watch (unknown) (no (unknown) (unknown) fraction (LVEF) (units (unknown) date) less than 40%, or unknown) moderate or severely depressed left (unknown) (no (unknown) (unknown) him closely to (units (unknown) date) make sure he does unknown) not move inappropriately. Review of the (unknown) (no (unknown) (unknown) household (units (unkn own) date) members: spouse unknown) (unknown) (no (unknown) (unknown) improve and the (units (unknown) date) hospital service unknown) was requested to consult on him. (unknown) (no (unknown) (unknown) mucosa pink and (units (unknown) date) moist unknown) (unknown) (no (unknown) (unknown) participate in PT (units (unknown) date) or is confused unknown) about the directions. I also note in his (unknown) (no (unknown) (unknown) physical therapy (units (unknown) date) notes indicates unknown) that sometimes he is too lethargic to (unknown) (no (unknown) (unknown) protocol. (units (unkn own) date) unknown) (unknown) (no (unknown) (unknown) record that he (units (unknown) date) has a history of unknown) alcohol use. He has been placed on CIWA (unknown) (no (unknown) (unknown) sign (units (unkno wn) date) unknown) (unknown) (no (unknown) (unknown) substance use (units ( unknown) date) type: does not unknown) use (unknown) (no (unknown) (unknown) today; this time (units (unknown) date) is exclusive of unknown) procedural time. (unknown) (no (unknown) (unknown) up in a chair (units ( unknown) date) unknown) (unknown) (no (unknown) (unknown) ventricular (units (un known) date) systolic unknown) function.: No Result panel 115 (unknown) (no (unknown) (unknown) (no value) (units (unk nown) date) unknown) (unknown) (no (unknown) (unknown) Date of Service: (units (unknown) date) 02/03/22 unknown) (unknown) (no (unknown) (unknown) (no value) (units (unk nown) date) unknown) (unknown) (no (unknown) (unknown) - (units (unkno wn) date) unknown) (unknown) (no (unknown) (unknown) 02/06/22 07:06 (units (unknown) date) unknown) (unknown) (no (unknown) (unknown) 02/07/22 1134 (units ( unknown) date) unknown) (unknown) (no (unknown) (unknown) [facility] (units (unknown) date) [address] [place] [address] unknown) [place] [address] (unknown) (no (unknown) (unknown) Progress Note (units ( unknown) date) unknown) (unknown) (no (unknown) (unknown) They will be (units (u nknown) date) contacting the unknown) patient's pharmacies to confirm all home (unknown) (no (unknown) (unknown) (no value) (units (unk nown) date) unknown) (unknown) (no (unknown) (unknown) Librium taper. (units (unknown) date) unknown) (unknown) (no (unknown) (unknown) bedtime, have (units ( unknown) date) discussed with unknown) Pharmacy and will drop down to 100 mg at bedtime. (unknown) (no (unknown) (unknown) etoh withdrawal (units (unknown) date) unknown) (unknown) (no (unknown) (unknown) further workup if (units (unknown) date) clinical status unknown) changes (unknown) (no (unknown) (unknown) medications (units (un known) date) unknown) (unknown) (no (unknown) (unknown) 02/07/22 (units (unkno wn) date) unknown) (unknown) (no (unknown) (unknown) Surrogate (units (unkn own) date) decision maker is unknown) in patient?s record [If Yes, STOP here]: Yes (unknown) (no (unknown) (unknown) (past 8 hours): (units (unknown) date) unknown) (unknown) (no (unknown) (unknown) * ABG ordered and (units (unknown) date) CO2 was not unknown) consistent with hypercarbia (unknown) (no (unknown) (unknown) * Alcohol use, (units (unknown) date) CIWA protocol in unknown) place, ammonia level has been ordered, consider (unknown) (no (unknown) (unknown) * CT abdomen (units (u nknown) date) showed unknown) gastroenteritis vs ileus, no significant diarrhea, consider (unknown) (no (unknown) (unknown) * CT head ordered (units (unknown) date) and negative unknown) (unknown) (no (unknown) (unknown) * Question (units (unk nown) date) polypharmacy, unknown) patient was stated to be taking trazodone 400 mg at (unknown) (no (unknown) (unknown) * added (units (unkno wn) date) azithromycin, unknown) changed to orals today. (unknown) (no (unknown) (unknown) * chest xray and (units (unknown) date) ua were ordered unknown) for admitting service which were negative (unknown) (no (unknown) (unknown) * etiology not (units (unknown) date) clear at the unknown) moment, he is mostly lethargic, think less likely (unknown) (no (unknown) (unknown) * labs look (units (unk nown) date) reassuring with unknown) normal white count and no concerning findings on bmp (unknown) (no (unknown) (unknown) * mild acute (units (u nknown) date) exacerbation unknown) (unknown) (no (unknown) (unknown) * ordered nebs (units (unknown) date) and steroids as unknown) well (unknown) (no (unknown) (unknown) * repeat ua, was (units (unknown) date) also negative unknown) (unknown) (no (unknown) (unknown) * suspect related (units (unknown) date) to delirium in unknown) setting of hospital and recent surgery (unknown) (no (unknown) (unknown) [id number] (units (unkn own) date) unknown) (unknown) (no (unknown) (unknown) 04:00 02/07/22 (units (unknown) date) unknown) (unknown) (no (unknown) (unknown) 07:25 02/07/22 (units (unknown) date) unknown) (unknown) (no (unknown) (unknown) 08:00 (units (unkno wn) date) unknown) (unknown) (no (unknown) (unknown) 1. Acute (units (unkno wn) date) encephalopathy the unknown) origin unknown (unknown) (no (unknown) (unknown) 2. COPD (units (unkno wn) date) unknown) (unknown) (no (unknown) (unknown) Abd: soft, (units (unk nown) date) non-tender, unknown) normoactive BTs (unknown) (no (unknown) (unknown) Achalasia (units (unkn own) date) unknown) (unknown) (no (unknown) (unknown) Age/Sex: 76 / M (units (unknown) date) unknown) (unknown) (no (unknown) (unknown) Anginal pain (units (u nknown) date) unknown) (unknown) (no (unknown) (unknown) Assessment + Plan (units (unknown) date) unknown) (unknown) (no (unknown) (unknown) Assessment + Plan (units (unknown) date) narrative: unknown) (unknown) (no (unknown) (unknown) Asthma (units (unkno wn) date) unknown) (unknown) (no (unknown) (unknown) Atrial (units (unkno wn) date) fibrillation unknown) (unknown) (no (unknown) (unknown) Blood Pressure (units (unknown) date) 132/69 130/60 unknown) (unknown) (no (unknown) (unknown) CODE: Full (units (unk nown) date) unknown) (unknown) (no (unknown) (unknown) COPD (chronic (units ( unknown) date) obstructive unknown) pulmonary disease) (unknown) (no (unknown) (unknown) COVID-19 (units (unkno wn) date) unknown) (unknown) (no (unknown) (unknown) COVID-19 status: (units (unknown) date) Negative unknown) (unknown) (no (unknown) (unknown) CV: RRR, no (units (un known) date) murmur or rubs unknown) (unknown) (no (unknown) (unknown) Cervical spinal (units (unknown) date) stenosis unknown) (unknown) (no (unknown) (unknown) 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 (10/22/16) (unknown) (no (unknown) (unknown) Clinical signs (units (unknown) date) and symptoms of unknown) DVT: No (unknown) (no (unknown) (unknown) Coronary artery (units (unknown) date) disease unknown) (unknown) (no (unknown) (unknown) : 1945 (units (unknown) date) Acct:[id number] unknown) (unknown) (no (unknown) (unknown) Date Patient (units (u nknown) date) Seen: 02/07/22 unknown) (unknown) (no (unknown) (unknown) Deep Vein (units (unkn own) date) Thrombosis/Pulmona unknown) ry Embolism Present on Admission: No (unknown) (no (unknown) (unknown) Dispo: recommend (units (unknown) date) acute rehab, have unknown) discussed in today's case management rounds. (unknown) (no (unknown) (unknown) Exam (units (unkno wn) date) unknown) (unknown) (no (unknown) (unknown) Exam Narrative: (units (unknown) date) unknown) (unknown) (no (unknown) (unknown) Extremities: moves (units (unknown) date) all 4 extremities, unknown) is ambulatory assistance, negative Otilio?s (unknown) (no (unknown) (unknown) Family History (units (unknown) date) (Reviewed 02/07/22 unknown) @ 11:16 by [facility]) (unknown) (no (unknown) (unknown) Father (units (unkno wn) date) Hypertension unknown) (unknown) (no (unknown) (unknown) Gen: Alert, (units (unk nown) date) lethargic, unknown) chronically ill appearing 76 y.o. male, sitting (unknown) (no (unknown) (unknown) H/O arthroscopic (units (unknown) date) knee surgery unknown) (11/14/17) (unknown) (no (unknown) (unknown) HEENT: (units (unkno wn) date) normocephalic, unknown) atraumatic, conjunctiva clear, sclera non-icteric, oral (unknown) (no (unknown) (unknown) Heart rate > 100: (units (unknown) date) No unknown) (unknown) (no (unknown) (unknown) Hemoptysis: No (units (unknown) date) unknown) (unknown) (no (unknown) (unknown) History of PE or (units (unknown) date) DVT: No unknown) (unknown) (no (unknown) (unknown) History of aortic (units (unknown) date) dissection unknown) () (unknown) (no (unknown) (unknown) History of (units (unk nown) date) arthroplasty of unknown) left knee (05/24/19) (unknown) (no (unknown) (unknown) History of (units (unk nown) date) arthroplasty of unknown) right knee (unknown) (no (unknown) (unknown) History of (units (unk nown) date) bilateral total unknown) hip arthroplasty (unknown) (no (unknown) (unknown) History of (units (unk nown) date) cardiac cath unknown) () (unknown) (no (unknown) (unknown) History of (units (unk nown) date) esophageal surgery unknown) (unknown) (no (unknown) (unknown) History of (units (unk nown) date) incision and unknown) drainage (-2016) (unknown) (no (unknown) (unknown) History of prior (units (unknown) date) ablation treatment unknown) () (unknown) (no (unknown) (unknown) History of (units (unk nown) date) surgery unknown) (unknown) (no (unknown) (unknown) Hx of (units (unkno wn) date) cholecystectomy unknown) (unknown) (no (unknown) (unknown) Hx of hernia (units (u nknown) date) repair unknown) (unknown) (no (unknown) (unknown) Hx of sinus (units (un known) date) surgery unknown) (unknown) (no (unknown) (unknown) Hypertension (units (u nknown) date) unknown) (unknown) (no (unknown) (unknown) I confirm the (units (u nknown) date) patient?s Advance unknown) Care Plan is present, Code status is documented, (unknown) (no (unknown) (unknown) I have utilized (units (unknown) date) all available unknown) resources to reconcile the patient's home (unknown) (no (unknown) (unknown) Immobilization at (units (unknown) date) least 3 days or unknown) surg in previous 4 weeks: Yes (unknown) (no (unknown) (unknown) Interval history: (units (unknown) date) unknown) (unknown) (no (unknown) (unknown) Ischemic (units (unkno wn) date) cardiomyopathy unknown) (unknown) (no (unknown) (unknown) Labs (units (unkno wn) date) unknown) (unknown) (no (unknown) (unknown) MIPS - Admit (units (u nknown) date) unknown) (unknown) (no (unknown) (unknown) MIPS - DC (units (unkn own) date) unknown) (unknown) (no (unknown) (unknown) Malignancy (units (unk nown) date) w/Treatment within unknown) 6 months or palliative: Yes (unknown) (no (unknown) (unknown) Medical History (units (unknown) date) (Reviewed 02/07/22 unknown) @ 11:16 by [facility]) (unknown) (no (unknown) (unknown) Dominic Viveros (units (unknown) date) is a 76 year old unknown) male postoperative day 4 lumbar laminectomy. (unknown) (no (unknown) (unknown) Mother (units (unknown) date) Stroke unknown) (unknown) (no (unknown) (unknown) Narcotic (units (unkno wn) date) dependence unknown) (unknown) (no (unknown) (unknown) Narrative (units (unkn own) date) unknown) (unknown) (no (unknown) (unknown) Neck pain, (units (unk nown) date) chronic unknown) (unknown) (no (unknown) (unknown) Neck: supple, (units ( unknown) date) full ROM, no JVD, unknown) trachea is midline (unknown) (no (unknown) (unknown) Neuro: very weak (units (unknown) date) and lethargic. unknown) Speech is soft but clear (unknown) (no (unknown) (unknown) Objective (units (unkn own) date) unknown) (unknown) (no (unknown) (unknown) Oxygen Delivery (units (unknown) date) Method Room Air unknown) (unknown) (no (unknown) (unknown) Oxygen Delivery (units (unknown) date) Method Room Air unknown) (unknown) (no (unknown) (unknown) Oxygen Flow Rate (units (unknown) date) 0 unknown) (unknown) (no (unknown) (unknown) Oxygen Flow Rate (units (unknown) date) 0 unknown) (unknown) (no (unknown) (unknown) PE is #1 Dx or (units (unknown) date) equally likely: No unknown) (unknown) (no (unknown) (unknown) PFSH (units (unkno wn) date) unknown) (unknown) (no (unknown) (unknown) Patient is (units (unk nown) date) sitting up in his unknown) chair, lethargic. States pain yesterday was 05/17 (unknown) (no (unknown) (unknown) Patient: (units (unkno wn) date) Dominic Viveros unknown) MR#: M (unknown) (no (unknown) (unknown) Provider: (units (unkn own) date) Christianne Russo unknown) (unknown) (no (unknown) (unknown) Proxy: Milana (units (u nknown) date) Donna unknown) (unknown) (no (unknown) (unknown) Psyche: normal (units (unknown) date) mood and affect. unknown) (unknown) (no (unknown) (unknown) Pulse Oximetry 97 (units (unknown) date) 93 94 unknown) (unknown) (no (unknown) (unknown) Pulse Rate 66 68 (units (unknown) date) unknown) (unknown) (no (unknown) (unknown) Quality (units (unkno wn) date) unknown) (unknown) (no (unknown) (unknown) Resp: Lungs (units (un known) date) sounds are unknown) diminished, non-labored breathing (unknown) (no (unknown) (unknown) Respiratory Rate (units (unknown) date) 18 17 unknown) (unknown) (no (unknown) (unknown) Result Diagrams: (units (unknown) date) unknown) (unknown) (no (unknown) (unknown) Result date/Date (units (unknown) date) tested (Pos, unknown) Neg/Pending): 03/03/22 (unknown) (no (unknown) (unknown) S/P CABG x 3 (units (u nknown) date) () unknown) (unknown) (no (unknown) (unknown) S/P cervical (units (u nknown) date) spinal fusion unknown) (unknown) (no (unknown) (unknown) S/P lumbar fusion (units (unknown) date) unknown) (unknown) (no (unknown) (unknown) Scores (units (unkno wn) date) unknown) (unknown) (no (unknown) (unknown) Signed (units (unkno wn) date) By:<Electronically unknown) signed by Christianne Russo> (unknown) (no (unknown) (unknown) Skin: no lesions (units (unknown) date) or rashes, dry and unknown) intact (unknown) (no (unknown) (unknown) Smoking Status: (units (unknown) date) Former smoker unknown) (unknown) (no (unknown) (unknown) Social History (units (unknown) date) (Reviewed 02/07/22 unknown) @ 11:16 by [facility]) (unknown) (no (unknown) (unknown) Status post (units (un known) date) lumbar unknown) laminectomy. Patient has had lethargy and not appearing to (unknown) (no (unknown) (unknown) Subjective (units (unk nown) date) unknown) (unknown) (no (unknown) (unknown) Surgical History (units (unknown) date) (Reviewed 02/07/22 unknown) @ 11:16 by [facility]) (unknown) (no (unknown) (unknown) Temperature 98.3 (units (unknown) date) F 98.5 F unknown) (unknown) (no (unknown) (unknown) The patient has (units (unknown) date) current or prior unknown) documentation of left ventricular ejection (unknown) (no (unknown) (unknown) Time Patient (units (u nknown) date) Seen: 09:00 unknown) (unknown) (no (unknown) (unknown) VTE (units (unkno wn) date) unknown) (unknown) (no (unknown) (unknown) Ventricular (units (un known) date) bigeminy unknown) (unknown) (no (unknown) (unknown) Vital Signs (units (un known) date) unknown) (unknown) (no (unknown) (unknown) We have seen the (units (unknown) date) patient to consult unknown) to Orthopedic surgery, patient is pod D 4. (unknown) (no (unknown) (unknown) We will continue (units (unknown) date) to follow along unknown) with you. (unknown) (no (unknown) (unknown) Wells' Criteria (units (unknown) date) for PE unknown) (unknown) (no (unknown) (unknown) Wells' PE Score (units (unknown) date) total: 2.5 unknown) (unknown) (no (unknown) (unknown) [Embedded Image (units (unknown) date) Not Available] unknown) (unknown) (no (unknown) (unknown) alcohol intake: (units (unknown) date) current unknown) (unknown) (no (unknown) (unknown) and still is. (units ( unknown) date) Nursing has stated unknown) that he is impulsive and they have to watch (unknown) (no (unknown) (unknown) fraction (LVEF) (units (unknown) date) less than 40%, or unknown) moderate or severely depressed left (unknown) (no (unknown) (unknown) him closely to (units (unknown) date) make sure he does unknown) not move inappropriately. Review of the (unknown) (no (unknown) (unknown) household (units (unkn own) date) members: spouse unknown) (unknown) (no (unknown) (unknown) improve and the (units (unknown) date) hospital service unknown) was requested to consult on him. (unknown) (no (unknown) (unknown) medications. (units (u nknown) date) unknown) (unknown) (no (unknown) (unknown) mucosa pink and (units (unknown) date) moist unknown) (unknown) (no (unknown) (unknown) participate in PT (units (unknown) date) or is confused unknown) about the directions. I also note in his (unknown) (no (unknown) (unknown) physical therapy (units (unknown) date) notes indicates unknown) that sometimes he is too lethargic to (unknown) (no (unknown) (unknown) protocol. (units (unkn own) date) unknown) (unknown) (no (unknown) (unknown) record that he (units (unknown) date) has a history of unknown) alcohol use. He has been placed on CIWA (unknown) (no (unknown) (unknown) sign (units (unkno wn) date) unknown) (unknown) (no (unknown) (unknown) substance use (units ( unknown) date) type: does not unknown) use (unknown) (no (unknown) (unknown) up in a chair (units ( unknown) date) unknown) (unknown) (no (unknown) (unknown) ventricular (units (un known) date) systolic unknown) function.: No Result panel 116 (unknown) (no (unknown) (unknown) (no value) (units (unk nown) date) unknown) (unknown) (no (unknown) (unknown) Date of Service: (units (unknown) date) 02/03/22 unknown) (unknown) (no (unknown) (unknown) (no value) (units (unk nown) date) unknown) (unknown) (no (unknown) (unknown) ADDENDUM (units (u nknown) date) unknown) (unknown) (no (unknown) (unknown) - (units (unkno wn) date) unknown) (unknown) (no (unknown) (unknown) 02/06/22 07:06 (units (unknown) date) unknown) (unknown) (no (unknown) (unknown) 02/07/22 1134 (units ( unknown) date) unknown) (unknown) (no (unknown) (unknown) 02/07/22 1135 (units ( unknown) date) unknown) (unknown) (no (unknown) (unknown) [facility] (units (unknown) date) [address] unknown) [place] [id number] (unknown) (no (unknown) (unknown) Progress Note (units ( unknown) date) unknown) (unknown) (no (unknown) (unknown) They will be (units (u nknown) date) contacting the unknown) patient's pharmacies to confirm all home (unknown) (no (unknown) (unknown) (no value) (units (unk nown) date) unknown) (unknown) (no (unknown) (unknown) Librium taper. (units (unknown) date) unknown) (unknown) (no (unknown) (unknown) bedtime, have (units ( unknown) date) discussed with unknown) Pharmacy and will drop down to 100 mg at bedtime. (unknown) (no (unknown) (unknown) etoh withdrawal (units (unknown) date) unknown) (unknown) (no (unknown) (unknown) further workup if (units (unknown) date) clinical status unknown) changes (unknown) (no (unknown) (unknown) medications (units (un known) date) unknown) (unknown) (no (unknown) (unknown) 02/07/22 (units (unkno wn) date) unknown) (unknown) (no (unknown) (unknown) Surrogate (units (unkn own) date) decision maker is unknown) in patient?s record [If Yes, STOP here]: Yes (unknown) (no (unknown) (unknown) (past 8 hours): (units (unknown) date) unknown) (unknown) (no (unknown) (unknown) * ABG ordered and (units (unknown) date) CO2 was not unknown) consistent with hypercarbia (unknown) (no (unknown) (unknown) * Alcohol use, (units (unknown) date) CIWA protocol in unknown) place, ammonia level has been ordered, consider (unknown) (no (unknown) (unknown) * CT abdomen (units (u nknown) date) showed unknown) gastroenteritis vs ileus, no significant diarrhea, consider (unknown) (no (unknown) (unknown) * CT head ordered (units (unknown) date) and negative unknown) (unknown) (no (unknown) (unknown) * Question (units (unk nown) date) polypharmacy, unknown) patient was stated to be taking trazodone 400 mg at (unknown) (no (unknown) (unknown) * added (units (unkno wn) date) azithromycin, unknown) changed to orals today. (unknown) (no (unknown) (unknown) * chest xray and (units (unknown) date) ua were ordered unknown) for admitting service which were negative (unknown) (no (unknown) (unknown) * etiology not (units (unknown) date) clear at the unknown) moment, he is mostly lethargic, think less likely (unknown) (no (unknown) (unknown) * labs look (units (unk nown) date) reassuring with unknown) normal white count and no concerning findings on bmp (unknown) (no (unknown) (unknown) * mild acute (units (u nknown) date) exacerbation unknown) (unknown) (no (unknown) (unknown) * ordered nebs (units (unknown) date) and steroids as unknown) well (unknown) (no (unknown) (unknown) * repeat ua, was (units (unknown) date) also negative unknown) (unknown) (no (unknown) (unknown) * suspect related (units (unknown) date) to delirium in unknown) setting of hospital and recent surgery (unknown) (no (unknown) (unknown) [id number] (units (unkn own) date) unknown) (unknown) (no (unknown) (unknown) 04:00 02/07/22 (units (unknown) date) unknown) (unknown) (no (unknown) (unknown) 07:25 02/07/22 (units (unknown) date) unknown) (unknown) (no (unknown) (unknown) 08:00 (units (unkno wn) date) unknown) (unknown) (no (unknown) (unknown) 1. Acute (units (unkno wn) date) encephalopathy the unknown) origin unknown (unknown) (no (unknown) (unknown) 2. COPD (units (unkno wn) date) unknown) (unknown) (no (unknown) (unknown) Abd: soft, (units (unk nown) date) non-tender, unknown) normoactive BTs (unknown) (no (unknown) (unknown) Achalasia (units (unkn own) date) unknown) (unknown) (no (unknown) (unknown) Added scheduled (units (unknown) date) tylenol to see if unknown) we can reduce baseline severity of pain. (unknown) (no (unknown) (unknown) Addendum (units (unkno wn) date) Documented By: unknown) Christianne Russo (unknown) (no (unknown) (unknown) Addendum Signed (units (unknown) date) By: unknown) <Electronically signed by Christianne Russo> (unknown) (no (unknown) (unknown) Age/Sex: 76 / M (units (unknown) date) unknown) (unknown) (no (unknown) (unknown) Anginal pain (units (u nknown) date) unknown) (unknown) (no (unknown) (unknown) Assessment + Plan (units (unknown) date) unknown) (unknown) (no (unknown) (unknown) Assessment + Plan (units (unknown) date) narrative: unknown) (unknown) (no (unknown) (unknown) Asthma (units (unkno wn) date) unknown) (unknown) (no (unknown) (unknown) Atrial (units (unkno wn) date) fibrillation unknown) (unknown) (no (unknown) (unknown) Blood Pressure (units (unknown) date) 132/69 130/60 unknown) (unknown) (no (unknown) (unknown) CODE: Full (units (unk nown) date) unknown) (unknown) (no (unknown) (unknown) COPD (chronic (units ( unknown) date) obstructive unknown) pulmonary disease) (unknown) (no (unknown) (unknown) COVID-19 (units (unkno wn) date) unknown) (unknown) (no (unknown) (unknown) COVID-19 status: (units (unknown) date) Negative unknown) (unknown) (no (unknown) (unknown) CV: RRR, no (units (un known) date) murmur or rubs unknown) (unknown) (no (unknown) (unknown) Cervical spinal (units (unknown) date) stenosis unknown) (unknown) (no (unknown) (unknown) 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 (10/22/16) (unknown) (no (unknown) (unknown) Clinical signs (units (unknown) date) and symptoms of unknown) DVT: No (unknown) (no (unknown) (unknown) Coronary artery (units (unknown) date) disease unknown) (unknown) (no (unknown) (unknown) : 1945 (units (unknown) date) Acct:[id number] unknown) (unknown) (no (unknown) (unknown) Date Patient (units (u nknown) date) Seen: 02/07/22 unknown) (unknown) (no (unknown) (unknown) Deep Vein (units (unkn own) date) Thrombosis/Pulmona unknown) ry Embolism Present on Admission: No (unknown) (no (unknown) (unknown) Dispo: recommend (units (unknown) date) acute rehab, have unknown) discussed in today's case management rounds. (unknown) (no (unknown) (unknown) Exam (units (unkno wn) date) unknown) (unknown) (no (unknown) (unknown) Exam Narrative: (units (unknown) date) unknown) (unknown) (no (unknown) (unknown) Extremities: moves (units (unknown) date) all 4 extremities, unknown) is ambulatory assistance, negative Otilio?s (unknown) (no (unknown) (unknown) Family History (units (unknown) date) (Reviewed 02/07/22 unknown) @ 11:16 by [facility]) (unknown) (no (unknown) (unknown) Father (units (unkno wn) date) Hypertension unknown) (unknown) (no (unknown) (unknown) Gen: Alert, (units (unk nown) date) lethargic, unknown) chronically ill appearing 76 y.o. male, sitting (unknown) (no (unknown) (unknown) H/O arthroscopic (units (unknown) date) knee surgery unknown) (11/14/17) (unknown) (no (unknown) (unknown) HEENT: (units (unkno wn) date) normocephalic, unknown) atraumatic, conjunctiva clear, sclera non-icteric, oral (unknown) (no (unknown) (unknown) Heart rate > 100: (units (unknown) date) No unknown) (unknown) (no (unknown) (unknown) Hemoptysis: No (units (unknown) date) unknown) (unknown) (no (unknown) (unknown) History of PE or (units (unknown) date) DVT: No unknown) (unknown) (no (unknown) (unknown) History of aortic (units (unknown) date) dissection unknown) () (unknown) (no (unknown) (unknown) History of (units (unk nown) date) arthroplasty of unknown) left knee (05/24/19) (unknown) (no (unknown) (unknown) History of (units (unk nown) date) arthroplasty of unknown) right knee (unknown) (no (unknown) (unknown) History of (units (unk nown) date) bilateral total unknown) hip arthroplasty (unknown) (no (unknown) (unknown) History of (units (unk nown) date) cardiac cath unknown) () (unknown) (no (unknown) (unknown) History of (units (unk nown) date) esophageal surgery unknown) (unknown) (no (unknown) (unknown) History of (units (unk nown) date) incision and unknown) drainage () (unknown) (no (unknown) (unknown) History of prior (units (unknown) date) ablation treatment unknown) () (unknown) (no (unknown) (unknown) History of (units (unk nown) date) surgery unknown) (unknown) (no (unknown) (unknown) Hx of (units (unkno wn) date) cholecystectomy unknown) (unknown) (no (unknown) (unknown) Hx of hernia (units (u nknown) date) repair unknown) (unknown) (no (unknown) (unknown) Hx of sinus (units (un known) date) surgery unknown) (unknown) (no (unknown) (unknown) Hypertension (units (u nknown) date) unknown) (unknown) (no (unknown) (unknown) I confirm the (units (u nknown) date) patient?s Advance unknown) Care Plan is present, Code status is documented, (unknown) (no (unknown) (unknown) I have utilized (units (unknown) date) all available unknown) resources to reconcile the patient's home (unknown) (no (unknown) (unknown) Immobilization at (units (unknown) date) least 3 days or unknown) surg in previous 4 weeks: Yes (unknown) (no (unknown) (unknown) Interval history: (units (unknown) date) unknown) (unknown) (no (unknown) (unknown) Ischemic (units (unkno wn) date) cardiomyopathy unknown) (unknown) (no (unknown) (unknown) Labs (units (unkno wn) date) unknown) (unknown) (no (unknown) (unknown) MIPS - Admit (units (u nknown) date) unknown) (unknown) (no (unknown) (unknown) MIPS - DC (units (unkn own) date) unknown) (unknown) (no (unknown) (unknown) Malignancy (units (unk nown) date) w/Treatment within unknown) 6 months or palliative: Yes (unknown) (no (unknown) (unknown) Medical History (units (unknown) date) (Reviewed 02/07/22 unknown) @ 11:16 by [facility]) (unknown) (no (unknown) (unknown) Dominic Viveros (units (unknown) date) is a 76 year old unknown) male postoperative day 4 lumbar laminectomy. (unknown) (no (unknown) (unknown) Mother (units (unknown) date) Stroke unknown) (unknown) (no (unknown) (unknown) Narcotic (units (unkno wn) date) dependence unknown) (unknown) (no (unknown) (unknown) Narrative (units (unkn own) date) unknown) (unknown) (no (unknown) (unknown) Neck pain, (units (unk nown) date) chronic unknown) (unknown) (no (unknown) (unknown) Neck: supple, (units ( unknown) date) full ROM, no JVD, unknown) trachea is midline (unknown) (no (unknown) (unknown) Neuro: very weak (units (unknown) date) and lethargic. unknown) Speech is soft but clear (unknown) (no (unknown) (unknown) Objective (units (unkn own) date) unknown) (unknown) (no (unknown) (unknown) Oxygen Delivery (units (unknown) date) Method Room Air unknown) (unknown) (no (unknown) (unknown) Oxygen Delivery (units (unknown) date) Method Room Air unknown) (unknown) (no (unknown) (unknown) Oxygen Flow Rate (units (unknown) date) 0 unknown) (unknown) (no (unknown) (unknown) Oxygen Flow Rate (units (unknown) date) 0 unknown) (unknown) (no (unknown) (unknown) PE is #1 Dx or (units (unknown) date) equally likely: No unknown) (unknown) (no (unknown) (unknown) PFSH (units (unkno wn) date) unknown) (unknown) (no (unknown) (unknown) Patient is (units (unk nown) date) sitting up in his unknown) chair, lethargic. States pain yesterday was 05/17 (unknown) (no (unknown) (unknown) Patient: (units (unkno wn) date) Dominic Viveros unknown) MR#: M (unknown) (no (unknown) (unknown) Provider: (units (unkn own) date) Christianne Russo unknown) (unknown) (no (unknown) (unknown) Proxy: Milana (units (u nknown) date) Opaldin unknown) (unknown) (no (unknown) (unknown) Psyche: normal (units (unknown) date) mood and affect. unknown) (unknown) (no (unknown) (unknown) Pulse Oximetry 97 (units (unknown) date) 93 94 unknown) (unknown) (no (unknown) (unknown) Pulse Rate 66 68 (units (unknown) date) unknown) (unknown) (no (unknown) (unknown) Quality (units (unkno wn) date) unknown) (unknown) (no (unknown) (unknown) Resp: Lungs (units (un known) date) sounds are unknown) diminished, non-labored breathing (unknown) (no (unknown) (unknown) Respiratory Rate (units (unknown) date) 18 17 unknown) (unknown) (no (unknown) (unknown) Result Diagrams: (units (unknown) date) unknown) (unknown) (no (unknown) (unknown) Result date/Date (units (unknown) date) tested (Pos, unknown) Neg/Pending): 03/03/22 (unknown) (no (unknown) (unknown) S/P CABG x 3 (units (u nknown) date) (-08/2007) unknown) (unknown) (no (unknown) (unknown) S/P cervical (units (u nknown) date) spinal fusion unknown) (unknown) (no (unknown) (unknown) S/P lumbar fusion (units (unknown) date) unknown) (unknown) (no (unknown) (unknown) Scores (units (unkno wn) date) unknown) (unknown) (no (unknown) (unknown) Signed (units (unkno wn) date) By:<Electronically unknown) signed by Christianne Russo> (unknown) (no (unknown) (unknown) Skin: no lesions (units (unknown) date) or rashes, dry and unknown) intact (unknown) (no (unknown) (unknown) Smoking Status: (units (unknown) date) Former smoker unknown) (unknown) (no (unknown) (unknown) Social History (units (unknown) date) (Reviewed 02/07/22 unknown) @ 11:16 by [facility]) (unknown) (no (unknown) (unknown) Status post (units (un known) date) lumbar unknown) laminectomy. Patient has had lethargy and not appearing to (unknown) (no (unknown) (unknown) Subjective (units (unk nown) date) unknown) (unknown) (no (unknown) (unknown) Surgical History (units (unknown) date) (Reviewed 02/07/22 unknown) @ 11:16 by [facility]) (unknown) (no (unknown) (unknown) Temperature 98.3 (units (unknown) date) F 98.5 F unknown) (unknown) (no (unknown) (unknown) The patient has (units (unknown) date) current or prior unknown) documentation of left ventricular ejection (unknown) (no (unknown) (unknown) Time Patient (units (u nknown) date) Seen: 09:00 unknown) (unknown) (no (unknown) (unknown) VTE (units (unkno wn) date) unknown) (unknown) (no (unknown) (unknown) Ventricular (units (un known) date) bigeminy unknown) (unknown) (no (unknown) (unknown) Vital Signs (units (un known) date) unknown) (unknown) (no (unknown) (unknown) We have seen the (units (unknown) date) patient to consult unknown) to Orthopedic surgery, patient is pod D 4. (unknown) (no (unknown) (unknown) We will continue (units (unknown) date) to follow along unknown) with you. (unknown) (no (unknown) (unknown) Wells' Criteria (units (unknown) date) for PE unknown) (unknown) (no (unknown) (unknown) Wells' PE Score (units (unknown) date) total: 2.5 unknown) (unknown) (no (unknown) (unknown) [Embedded Image (units (unknown) date) Not Available] unknown) (unknown) (no (unknown) (unknown) alcohol intake: (units (unknown) date) current unknown) (unknown) (no (unknown) (unknown) and still is. (units ( unknown) date) Nursing has stated unknown) that he is impulsive and they have to watch (unknown) (no (unknown) (unknown) fraction (LVEF) (units (unknown) date) less than 40%, or unknown) moderate or severely depressed left (unknown) (no (unknown) (unknown) him closely to (units (unknown) date) make sure he does unknown) not move inappropriately. Review of the (unknown) (no (unknown) (unknown) household (units (unkn own) date) members: spouse unknown) (unknown) (no (unknown) (unknown) improve and the (units (unknown) date) hospital service unknown) was requested to consult on him. (unknown) (no (unknown) (unknown) medications. (units (u nknown) date) unknown) (unknown) (no (unknown) (unknown) mucosa pink and (units (unknown) date) moist unknown) (unknown) (no (unknown) (unknown) participate in PT (units (unknown) date) or is confused unknown) about the directions. I also note in his (unknown) (no (unknown) (unknown) physical therapy (units (unknown) date) notes indicates unknown) that sometimes he is too lethargic to (unknown) (no (unknown) (unknown) protocol. (units (unkn own) date) unknown) (unknown) (no (unknown) (unknown) record that he (units (unknown) date) has a history of unknown) alcohol use. He has been placed on CIWA (unknown) (no (unknown) (unknown) sign (units (unkno wn) date) unknown) (unknown) (no (unknown) (unknown) substance use (units ( unknown) date) type: does not unknown) use (unknown) (no (unknown) (unknown) up in a chair (units ( unknown) date) unknown) (unknown) (no (unknown) (unknown) ventricular (units (un known) date) systolic unknown) function.: No Result panel 117 (unknown) (no (unknown) (unknown) (no value) (units (unk nown) date) unknown) (unknown) (no (unknown) (unknown) Heavy growth- (units ( unknown) date) Mixed fecal emily unknown) (unknown) (no (unknown) (unknown) Negative for (units (u nknown) date) Campylobacter unknown) (unknown) (no (unknown) (unknown) Negative for (units (u nknown) date) Shiga Toxin 1 unknown) (unknown) (no (unknown) (unknown) Negative for (units (u nknown) date) Shiga Toxin 2 unknown) Result panel 118 (unknown) (no date) (unknown) (unknown) NO GROWTH (units (unk nown) AFTER 48 unknown) HOURS (unknown) (no date) (unknown) (unknown) (no value) (units (un known) unknown) Result panel 119 (unknown) (no (unknown) (unknown) (no value) (units (unk nown) date) unknown) (unknown) (no (unknown) (unknown) Date of Service: (units (unknown) date) 02/08/22 unknown) (unknown) (no (unknown) (unknown) (no value) (units (unk nown) date) unknown) (unknown) (no (unknown) (unknown) 'He gets (units (unkno wn) date) unknown) (unknown) (no (unknown) (unknown) 0.2 mg PO BID (units ( unknown) date) unknown) (unknown) (no (unknown) (unknown) 1 puff INHALATION (units (unknown) date) Q4-6H PRN (Reason: unknown) shortness of breath or wheezing) Qty: 15 (unknown) (no (unknown) (unknown) 1 spray (units (unkno wn) date) Intranasal DAILY unknown) PRN (Reason: Allergy Symptoms) Qty: 0 (unknown) (no (unknown) (unknown) 1 tab PO DAILY (units (unknown) date) Qty: 0 unknown) (unknown) (no (unknown) (unknown) 1-2 tabs q 4 (units (u nknown) date) hours PRN moderate unknown) to severe pain (unknown) (no (unknown) (unknown) 10 mg PO DAILY (units (unknown) date) unknown) (unknown) (no (unknown) (unknown) 100 mg PO BID PRN (units (unknown) date) (Reason: unknown) constipation) Qty: 60 2RF (unknown) (no (unknown) (unknown) 100 mg PO DAILY (units (unknown) date) unknown) (unknown) (no (unknown) (unknown) 2 tab PO Q4H PRN (units (unknown) date) (Reason: Pain unknown) (Scale Score 4-6)) (unknown) (no (unknown) (unknown) 2.5 mg PO DAILY (units (unknown) date) unknown) (unknown) (no (unknown) (unknown) 25 mg PO QID PRN (units (unknown) date) (Reason: vertigo) unknown) Qty: 30 0RF (unknown) (no (unknown) (unknown) 325 mg PO DAILY (units (unknown) date) unknown) (unknown) (no (unknown) (unknown) 40 mg PO DAILY (units (unknown) date) unknown) (unknown) (no (unknown) (unknown) 400 tab PO (units (unk nown) date) BEDTIME 30 Days unknown) Qty: 120 0RF (unknown) (no (unknown) (unknown) 5 mg PO Q4H PRN (units (unknown) date) (Reason: pain, unknown) moderate) Qty: 60 0RF (unknown) (no (unknown) (unknown) ANXIETY, (units (unkno wn) date) unknown) (unknown) (no (unknown) (unknown) Allergies (units (unkn own) date) unknown) (unknown) (no (unknown) (unknown) DIZZINESS (units (unkn own) date) unknown) (unknown) (no (unknown) (unknown) EXPOSURE (units (unkno wn) date) unknown) (unknown) (no (unknown) (unknown) Emergency Report (units (unknown) date) unknown) (unknown) (no (unknown) (unknown) Home Medications (units (unknown) date) unknown) (unknown) (no (unknown) (unknown) [facility] (units (unknown) date) [address] unknown) [place] [id number] (unknown) (no (unknown) (unknown) JERKING, (units (unkno wn) date) unknown) (unknown) (no (unknown) (unknown) Label Comments: (units (unknown) date) unknown) (unknown) (no (unknown) (unknown) MINUTES (units (unkno wn) date) unknown) (unknown) (no (unknown) (unknown) NAUSEA W/I (units (unk nown) date) unknown) (unknown) (no (unknown) (unknown) Previous Rx's (units ( unknown) date) unknown) (unknown) (no (unknown) (unknown) Rx Instructions: (units (unknown) date) unknown) (unknown) (no (unknown) (unknown) Vital Signs - 8 (units (unknown) date) hr unknown) (unknown) (no (unknown) (unknown) W/EXTENDED (units (unk nown) date) unknown) (unknown) (no (unknown) (unknown) mind' (units (unkno wn) date) unknown) (unknown) (no (unknown) (unknown) out of his (units (unk nown) date) unknown) (unknown) (no (unknown) (unknown) take 1 tablet by (units (unknown) date) mouth once daily unknown) (unknown) (no (unknown) (unknown) (no value) (units (unk nown) date) unknown) (unknown) (no (unknown) (unknown) Zyrtec 10 mg (units (u nknown) date) Capsule unknown) (unknown) (no (unknown) (unknown) acetaminophen-cod (units (unknown) date) eine 300-30 mg unknown) tablet (unknown) (no (unknown) (unknown) clonidine HCl 0.1 (units (unknown) date) mg tablet unknown) (unknown) (no (unknown) (unknown) docusate sodium (units (unknown) date) 100 mg Capsule unknown) (unknown) (no (unknown) (unknown) ferrous sulfate (units (unknown) date) 325 mg (65 mg unknown) iron) tablet,delayed release (DR/EC) (unknown) (no (unknown) (unknown) fluticasone (units (un known) date) propionate 16 GM unknown) spray,suspension (unknown) (no (unknown) (unknown) furosemide 40 mg (units (unknown) date) tablet unknown) (unknown) (no (unknown) (unknown) glipizide (units (unkn own) date) [Glucotrol XL] 2.5 unknown) mg tablet extended release 24 hr (unknown) (no (unknown) (unknown) levalbuterol (units (u nknown) date) tartrate [Xopenex unknown) HFA] 45 mcg/actuation HFA aerosol inhaler (unknown) (no (unknown) (unknown) lisinopril 10 mg (units (unknown) date) tablet unknown) (unknown) (no (unknown) (unknown) meclizine 25 mg (units (unknown) date) tablet unknown) (unknown) (no (unknown) (unknown) metoprolol (units (unk nown) date) succinate 100 mg unknown) Tablet Extended Release 24 Hr (unknown) (no (unknown) (unknown) montelukast 10 mg (units (unknown) date) Tablet unknown) (unknown) (no (unknown) (unknown) multivitamin (units (u nknon) date) [Multiple unknown) Vitamins] 1 EACH tablet (unknown) (no (unknown) (unknown) oxycodone 5 mg (units (unknown) date) tablet unknown) (unknown) (no (unknown) (unknown) trazodone 100 mg (units (unknown) date) tablet unknown) (unknown) (no (unknown) (unknown) 02/08/22 (units (unkno wn) date) unknown) (unknown) (no (unknown) (unknown) Medication (units (unk n) date) Instructions unknown) Recorded (unknown) (no (unknown) (unknown) Medication (units (k n) date) Instructions unknown) Recorded Confirmed (unknown) (no (unknown) (unknown) caps (units (unkno wn) date) unknown) (unknown) (no (unknown) (unknown) tabs (units (unkno wn) date) unknown) (unknown) (no (unknown) (unknown) (Xopenex HFA) #15 (units (unknown) date) grams unknown) (unknown) (no (unknown) (unknown) [id number] (units (unkn own) date) unknown) (unknown) (no (unknown) (unknown) 02/03/22 (units (unkno wn) date) unknown) (unknown) (no (unknown) (unknown) 08:38 (units (unkno wn) date) unknown) (unknown) (no (unknown) (unknown) 08:39 (units (unkno wn) date) unknown) (unknown) (no (unknown) (unknown) 0RF (units (unkno wn) date) unknown) (unknown) (no (unknown) (unknown) ANTIBIOTICS)] (units ( unknown) date) unknown) (unknown) (no (unknown) (unknown) Achalasia (units (unkn own) date) unknown) (unknown) (no (unknown) (unknown) Age/Sex: 76 / M (units (unknown) date) unknown) (unknown) (no (unknown) (unknown) Allergy/AdvReac (units (unknown) date) Type Severity unknown) Reaction Status Date / Time (unknown) (no (unknown) (unknown) Anginal pain (units (u nknown) date) unknown) (unknown) (no (unknown) (unknown) Antibiotics) (units (u nknown) date) unknown) (unknown) (no (unknown) (unknown) Asthma (units (unkno wn) date) unknown) (unknown) (no (unknown) (unknown) Atrial (units (unkno wn) date) fibrillation unknown) (unknown) (no (unknown) (unknown) Blood Pressure (units (unknown) date) 149/71 H 02/08/22 unknown) 08:39 (unknown) (no (unknown) (unknown) Blood Pressure (units (unknown) date) 149/71 H unknown) (unknown) (no (unknown) (unknown) COPD (chronic (units ( unknown) date) obstructive unknown) pulmonary disease) (unknown) (no (unknown) (unknown) Cervical spinal (units (unknown) date) stenosis unknown) (unknown) (no (unknown) (unknown) Chief complaint: (units (unknown) date) Weakness unknown) (unknown) (no (unknown) (unknown) 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 (10/22/16) (unknown) (no (unknown) (unknown) Coronary artery (units (unknown) date) disease unknown) (unknown) (no (unknown) (unknown) Course (units (unkno wn) date) unknown) (unknown) (no (unknown) (unknown) : 1945 (units (unknown) date) Acct:[id number] unknown) (unknown) (no (unknown) (unknown) Kimmy Gomez, (units (unknown) date) [Primary Care unknown) Provider] - (unknown) (no (unknown) (unknown) Departure (units (unkn own) date) unknown) (unknown) (no (unknown) (unknown) Discharge Plan (units (unknown) date) unknown) (unknown) (no (unknown) (unknown) ER Physician: (units ( unknown) date) Bridgett Fletcher unknown) D.O. (unknown) (no (unknown) (unknown) Exam (units (unkno wn) date) unknown) (unknown) (no (unknown) (unknown) Family History (units (unknown) date) (Reviewed 02/07/22 unknown) @ 11:16 by [facility]) (unknown) (no (unknown) (unknown) Father (units (unkno wn) date) Hypertension unknown) (unknown) (no (unknown) (unknown) General (units (unkno wn) date) unknown) (unknown) (no (unknown) (unknown) H/O arthroscopic (units (unknown) date) knee surgery unknown) (11/14/17) (unknown) (no (unknown) (unknown) HPI - Weakness (units (unknown) date) unknown) (unknown) (no (unknown) (unknown) History of aortic (units (unknown) date) dissection unknown) () (unknown) (no (unknown) (unknown) History of (units (unk nown) date) arthroplasty of unknown) left knee (05/24/19) (unknown) (no (unknown) (unknown) History of (units (unk nown) date) arthroplasty of unknown) right knee (unknown) (no (unknown) (unknown) History of (units (unk nown) date) bilateral total unknown) hip arthroplasty (unknown) (no (unknown) (unknown) History of (units (unk nown) date) cardiac cath unknown) () (unknown) (no (unknown) (unknown) History of (units (unk nown) date) esophageal surgery unknown) (unknown) (no (unknown) (unknown) History of (units (unk nown) date) incision and unknown) drainage (2016) (unknown) (no (unknown) (unknown) History of prior (units (unknown) date) ablation treatment unknown) (-03/2017) (unknown) (no (unknown) (unknown) History of (units (unk nown) date) surgery unknown) (unknown) (no (unknown) (unknown) Hx of (units (unkno wn) date) cholecystectomy unknown) (unknown) (no (unknown) (unknown) Hx of hernia (units (u nknown) date) repair unknown) (unknown) (no (unknown) (unknown) Hx of sinus (units (un known) date) surgery unknown) (unknown) (no (unknown) (unknown) Hypertension (units (u nknown) date) unknown) (unknown) (no (unknown) (unknown) INHIBITOR] (units (unk nown) date) unknown) (unknown) (no (unknown) (unknown) Inhibitor (units (unkn own) date) MUSCLES unknown) (unknown) (no (unknown) (unknown) Initial Vital (units ( unknown) date) Signs unknown) (unknown) (no (unknown) (unknown) Initial Vital (units ( unknown) date) Signs: unknown) (unknown) (no (unknown) (unknown) Ischemic (units (unkno wn) date) cardiomyopathy unknown) (unknown) (no (unknown) (unknown) Medical History (units (unknown) date) (Reviewed 02/07/22 unknown) @ 11:16 by [facility]) (unknown) (no (unknown) (unknown) Mode of arrival: (units (unknown) date) Ambulatory unknown) (unknown) (no (unknown) (unknown) Mother (units (unknown) date) Stroke unknown) (unknown) (no (unknown) (unknown) Narcotic (units (unkno wn) date) dependence unknown) (unknown) (no (unknown) (unknown) Neck pain, (units (unk nown) date) chronic unknown) (unknown) (no (unknown) (unknown) No Action (units (unkn own) date) unknown) (unknown) (no (unknown) (unknown) Oxygen Delivery (units (unknown) date) Method 02/08/22 unknown) 08:39 (unknown) (no (unknown) (unknown) Oxygen Delivery (units (unknown) date) Method Room Air unknown) (unknown) (no (unknown) (unknown) Patient History (units (unknown) date) unknown) (unknown) (no (unknown) (unknown) Patient: (units (unkno wn) date) Dominic Viveros unknown) MR#: M (unknown) (no (unknown) (unknown) Prescriptions: (units (unknown) date) unknown) (unknown) (no (unknown) (unknown) Pulse Oximetry (units (unknown) date) 97 02/08/22 unknown) 08:39 (unknown) (no (unknown) (unknown) Pulse Oximetry 97 (units (unknown) date) unknown) (unknown) (no (unknown) (unknown) Pulse Rate 117 H (units (unknown) date) 02/08/22 08:39 unknown) (unknown) (no (unknown) (unknown) Pulse Rate 117 H (units (unknown) date) unknown) (unknown) (no (unknown) (unknown) Referrals: (units (unk nown) date) unknown) (unknown) (no (unknown) (unknown) Related Data (units (u nknown) date) unknown) (unknown) (no (unknown) (unknown) Respiratory Rate (units (unknown) date) 14 02/08/22 unknown) 08:39 (unknown) (no (unknown) (unknown) Respiratory Rate (units (unknown) date) 14 unknown) (unknown) (no (unknown) (unknown) S/P CABG x 3 (units (u nknown) date) () unknown) (unknown) (no (unknown) (unknown) S/P cervical (units (u nknown) date) spinal fusion unknown) (unknown) (no (unknown) (unknown) S/P lumbar fusion (units (unknown) date) unknown) (unknown) (no (unknown) (unknown) Signed By: (units (unk nown) date) unknown) (unknown) (no (unknown) (unknown) Smoking Status: (units (unknown) date) Former smoker unknown) (unknown) (no (unknown) (unknown) Smoking Status: (units (unknown) date) Former smoker unknown) (unknown) (no (unknown) (unknown) Social History (units (unknown) date) (Reviewed 02/07/22 unknown) @ 11:16 by [facility]) (unknown) (no (unknown) (unknown) Source: patient (units (unknown) date) unknown) (unknown) (no (unknown) (unknown) Stated complaint: (units (unknown) date) 'NEEDS MORE CARE' unknown) DISCHARGED FROM 02/07 (unknown) (no (unknown) (unknown) [id number] (units (unknown) date) Reductase AdvReac unknown) Mild WEAK Verified 02/08/22 08:38 (unknown) (no (unknown) (unknown) Substance Use (units ( unknown) date) Type: does not use unknown) (unknown) (no (unknown) (unknown) Sulfa (units (unkno wn) date) (Sulfonamide unknown) Allergy Mild RASH Verified 02/08/22 08:38 (unknown) (no (unknown) (unknown) Surgical History (units (unknown) date) (Reviewed 02/07/22 unknown) @ 11:16 by [facility]) (unknown) (no (unknown) (unknown) Temperature 98.9 (units (unknown) date) F 02/08/22 08:39 unknown) (unknown) (no (unknown) (unknown) Temperature 98.9 (units (unknown) date) F unknown) (unknown) (no (unknown) (unknown) Time Seen by (units (u nknown) date) Provider: 02/08/22 unknown) 08:41 (unknown) (no (unknown) (unknown) Ventricular (units (un known) date) bigeminy unknown) (unknown) (no (unknown) (unknown) Vital Signs (units (un known) date) unknown) (unknown) (no (unknown) (unknown) Vital signs: (units (u nknown) date) unknown) (unknown) (no (unknown) (unknown) [[id number] (units (unknown) date) REDUCTASE unknown) (unknown) (no (unknown) (unknown) [SULFA (units (unkno wn) date) (SULFONAMIDE unknown) (unknown) (no (unknown) (unknown) acetaminophen 300 (units (unknown) date) mg-codeine 30 mg 2 unknown) tab PO Q4H PRN Pain (Scale Score 02/03/22 (unknown) (no (unknown) (unknown) alcohol intake (units (unknown) date) frequency: 0-2 unknown) drinks per day (unknown) (no (unknown) (unknown) alcohol intake: (units (unknown) date) current unknown) (unknown) (no (unknown) (unknown) buprenorphine (units ( unknown) date) [BUPRENORPHINE] unknown) AdvReac Mild NAUSEA, Verified 02/08/22 08:38 (unknown) (no (unknown) (unknown) celecoxib (units (unkn own) date) [CELECOXIB] unknown) Allergy Mild SWELLING Verified 02/08/22 08:38 (unknown) (no (unknown) (unknown) cetirizine 10 mg (units (unknown) date) capsule (Zyrtec) unknown) 10 mg PO DAILY 05/22/19 02/03/22 (unknown) (no (unknown) (unknown) clonidine HCl 0.1 (units (unknown) date) mg tablet 0.2 mg unknown) PO BID 12/08/21 02/03/22 (unknown) (no (unknown) (unknown) diazepam [From (units (unknown) date) Valium] Allergy unknown) Severe Confusion Verified 02/08/22 08:38 (unknown) (no (unknown) (unknown) docusate sodium (units (unknown) date) 100 mg capsule 100 unknown) mg PO BID PRN constipation #60 02/07/22 (unknown) (no (unknown) (unknown) fentanyl AdvReac (units (unknown) date) Severe Confusion unknown) Verified 02/08/22 08:39 (unknown) (no (unknown) (unknown) ferrous sulfate (units (unknown) date) 325 mg (65 mg 325 unknown) mg PO DAILY 10/19/19 02/03/22 (unknown) (no (unknown) (unknown) fluticasone (units (un known) date) propionate 50 1 unknown) spray intranasal DAILY PRN 11/02/17 02/03/22 (unknown) (no (unknown) (unknown) furosemide 40 mg (units (unknown) date) tablet 40 mg PO unknown) DAILY 02/03/22 02/03/22 (unknown) (no (unknown) (unknown) glipizide 2.5 mg (units (unknown) date) tablet, extended unknown) 2.5 mg PO DAILY 10/08/21 02/03/22 (unknown) (no (unknown) (unknown) household (units (unkn own) date) members: spouse unknown) (unknown) (no (unknown) (unknown) hydromorphone (units ( unknown) date) [From Dilaudid] unknown) Allergy Severe Hallucinating, Verified 02/08/22 (unknown) (no (unknown) (unknown) hyoscyamine (units (un known) date) [HYOSCYAMINE] unknown) AdvReac Mild LEG Verified 02/08/22 08:38 (unknown) (no (unknown) (unknown) iron) (units (unkno wn) date) tablet,delayed unknown) release (unknown) (no (unknown) (unknown) latex [LATEX] (units ( unknown) date) Allergy Mild RASH unknown) Verified 02/08/22 08:38 (unknown) (no (unknown) (unknown) levalbuterol (units (u nknown) date) tartrate 45 1 puff unknown) inhalation Q4-6H PRN 06/22/18 (unknown) (no (unknown) (unknown) lisinopril 10 mg (units (unknown) date) tablet 10 mg PO unknown) DAILY 12/08/21 02/03/22 (unknown) (no (unknown) (unknown) mcg/actuation (units ( unknown) date) aerosol inhaler unknown) shortness of breath or wheezing (unknown) (no (unknown) (unknown) mcg/actuation (units ( unknown) date) nasal Allergy unknown) Symptoms ##0 (unknown) (no (unknown) (unknown) meclizine 25 mg (units (unknown) date) tablet 25 mg PO unknown) QID PRN vertigo #30 tabs 10/09/21 (unknown) (no (unknown) (unknown) metoprolol (units (unk nown) date) succinate 100 mg unknown) 100 mg PO DAILY 02/03/22 02/03/22 (unknown) (no (unknown) (unknown) montelukast 10 mg (units (unknown) date) tablet 10 mg PO unknown) DAILY 02/03/22 02/03/22 (unknown) (no (unknown) (unknown) morphine Allergy (units (unknown) date) Severe unknown) Hallucinating, Verified 02/08/22 08:38 (unknown) (no (unknown) (unknown) multivitamin (units (u nknown) date) (Multiple Vitamins unknown) 1 tab PO DAILY ##0 12/20/16 02/03/22 (unknown) (no (unknown) (unknown) oxycodone 5 mg (units (unknown) date) tablet 5 mg PO Q4H unknown) PRN pain, moderate #60 02/07/22 (unknown) (no (unknown) (unknown) release 24 hr (units ( unknown) date) (Glucotrol XL) unknown) (unknown) (no (unknown) (unknown) spray,suspension (units (unknown) date) unknown) (unknown) (no (unknown) (unknown) substance use (units ( unknown) date) type: does not unknown) use (unknown) (no (unknown) (unknown) tablet 4-6) (units (un known) date) unknown) (unknown) (no (unknown) (unknown) tablet) (units (unkno wn) date) unknown) (unknown) (no (unknown) (unknown) tablet,extended (units (unknown) date) release 24 hr unknown) (unknown) (no (unknown) (unknown) trazodone 100 mg (units (unknown) date) tablet 400 tab PO unknown) BEDTIME 30 days #120 12/10/21 (unknown) (no (unknown) (unknown) varenicline (units (un known) date) [VARENICLINE] unknown) AdvReac Severe Paranoia Verified 02/08/22 08:38 Result panel 120 (unknown) (no (unknown) (unknown) (no value) (units (unk nown) date) unknown) (unknown) (no (unknown) (unknown) [address] [place] [address] (units (unknown) date) unknown) (unknown) (no (unknown) (unknown) [place], [place] (units ( unknown) date) [id number] unknown) (unknown) (no (unknown) (unknown) [facility] (units (unknown) date) unknown) (unknown) (no (unknown) (unknown) Signed (units (unkno wn) date) unknown) (unknown) (no (unknown) (unknown) XRay Report (units (un known) date) unknown) (unknown) (no (unknown) (unknown) (no value) (units (unk nown) date) unknown) (unknown) (no (unknown) (unknown) 02/08/22 (units (unkno wn) date) unknown) (unknown) (no (unknown) (unknown) Approved by: (units (u nknown) date) Reid Martell, dinorah) Clifford on 02/08/2022 at 8:42 (unknown) (no (unknown) (unknown) Bones and chest (units (unknown) date) wall: No unknown) suspicious bony lesions. Overlying soft tissues (unknown) (no (unknown) (unknown) COMPARISON: (units (un known) date) [facility], unknown) CR, XR CHEST 1V, 02/04/2022, 18:16. (unknown) (no (unknown) (unknown) Dictated by: (units (u nknown) date) Reid Martell, unknown) Clifford on 02/08/2022 at 8:40 (unknown) (no (unknown) (unknown) FINDINGS: (units (unkn own) date) unknown) (unknown) (no (unknown) (unknown) IMPRESSION: No (units (unknown) date) acute unknown) cardiopulmonary abnormality. (unknown) (no (unknown) (unknown) INDICATIONS: (units (u nknown) date) Confusion after unknown) surgery (unknown) (no (unknown) (unknown) Lungs and pleura: (units (unknown) date) Lungs are clear. unknown) No pleural effusions or pneumothorax. (unknown) (no (unknown) (unknown) Mediastinum: (units (u nknown) date) Mediastinal unknown) contours appear normal. Heart size is enlarged. (unknown) (no (unknown) (unknown) Surgical changes (units (unknown) date) and devices: unknown) Status post median sternotomy. (unknown) (no (unknown) (unknown) TECHNIQUE: One (units (unknown) date) view of the chest unknown) was acquired. (unknown) (no (unknown) (unknown) atelectatic (units (un known) date) changes in the unknown) left lower lung. (unknown) (no (unknown) (unknown) unremarkable. (units ( unknown) date) unknown) (unknown) (no (unknown) (unknown) Accession Number: (units (unknown) date) [id number] unknown) (unknown) (no (unknown) (unknown) Age/Sex: 76 / M (units (unknown) date) Date of Service: unknown) (unknown) (no (unknown) (unknown) : 1945 (units (unknown) date) Acct:[id number] unknown) (unknown) (no (unknown) (unknown) Loc: ED (units (unkno wn) date) unknown) (unknown) (no (unknown) (unknown) [id number] (units (unk nown) date) unknown) (unknown) (no (unknown) (unknown) Ordering (units (unkno wn) date) Provider: unknown) Bridgett Fletcher D.O. (unknown) (no (unknown) (unknown) PROCEDURE: XR (units (unknown) date) CHEST 1V unknown) (unknown) (no (unknown) (unknown) Patient: (units (unkno wn) date) Dominic Viveros unknown) MR#: (unknown) (no (unknown) (unknown) Platelike (units (unkn own) date) unknown) (unknown) (no (unknown) (unknown) Procedure: XR (units ( unknown) date) chest 1V unknown) (unknown) (no (unknown) (unknown) appear (units (unkno wn) date) unknown) Result panel 121 (unknown) (no (unknown) (unknown) (no value) (units (unk nown) date) unknown) (unknown) (no (unknown) (unknown) Date of Service: (units (unknown) date) 02/08/22 unknown) (unknown) (no (unknown) (unknown) (no value) (units (unk nown) date) unknown) (unknown) (no (unknown) (unknown) 'He gets (units (unkno wn) date) unknown) (unknown) (no (unknown) (unknown) 0.2 mg PO BID (units ( unknown) date) unknown) (unknown) (no (unknown) (unknown) 1 puff INHALATION (units (unknown) date) Q4-6H PRN (Reason: unknown) shortness of breath or wheezing) Qty: 15 (unknown) (no (unknown) (unknown) 1 spray (units (unkno wn) date) Intranasal DAILY unknown) PRN (Reason: Allergy Symptoms) Qty: 0 (unknown) (no (unknown) (unknown) 1 tab PO DAILY (units (unknown) date) Qty: 0 unknown) (unknown) (no (unknown) (unknown) 1-2 tabs q 4 (units (u nknown) date) hours PRN moderate unknown) to severe pain (unknown) (no (unknown) (unknown) 10 mg PO DAILY (units (unknown) date) unknown) (unknown) (no (unknown) (unknown) 100 mg PO BID PRN (units (unknown) date) (Reason: unknown) constipation) Qty: 60 2RF (unknown) (no (unknown) (unknown) 100 mg PO DAILY (units (unknown) date) unknown) (unknown) (no (unknown) (unknown) 2 tab PO Q4H PRN (units (unknown) date) (Reason: Pain unknown) (Scale Score 4-6)) (unknown) (no (unknown) (unknown) 2.5 mg PO DAILY (units (unknown) date) unknown) (unknown) (no (unknown) (unknown) 25 mg PO QID PRN (units (unknown) date) (Reason: vertigo) unknown) Qty: 30 0RF (unknown) (no (unknown) (unknown) 325 mg PO DAILY (units (unknown) date) unknown) (unknown) (no (unknown) (unknown) 40 mg PO DAILY (units (unknown) date) unknown) (unknown) (no (unknown) (unknown) 400 tab PO (units (unk nown) date) BEDTIME 30 Days unknown) Qty: 120 0RF (unknown) (no (unknown) (unknown) 5 mg PO Q4H PRN (units (unknown) date) (Reason: pain, unknown) moderate) Qty: 60 0RF (unknown) (no (unknown) (unknown) ANXIETY, (units (unkno wn) date) unknown) (unknown) (no (unknown) (unknown) Allergies (units (unkn own) date) unknown) (unknown) (no (unknown) (unknown) DIZZINESS (units (unkn own) date) unknown) (unknown) (no (unknown) (unknown) ED Orders (units (unkn own) date) unknown) (unknown) (no (unknown) (unknown) EXPOSURE (units (unkno wn) date) unknown) (unknown) (no (unknown) (unknown) Emergency Report (units (unknown) date) unknown) (unknown) (no (unknown) (unknown) Home Medications (units (unknown) date) unknown) (unknown) (no (unknown) (unknown) [facility] (units (unknown) date) [address] unknown) [place] [address] (unknown) (no (unknown) (unknown) JERKING, (units (unkno wn) date) unknown) (unknown) (no (unknown) (unknown) Label Comments: (units (unknown) date) unknown) (unknown) (no (unknown) (unknown) MINUTES (units (unkno wn) date) unknown) (unknown) (no (unknown) (unknown) NAUSEA W/I (units (unk nown) date) unknown) (unknown) (no (unknown) (unknown) Previous Rx's (units ( unknown) date) unknown) (unknown) (no (unknown) (unknown) Rx Instructions: (units (unknown) date) unknown) (unknown) (no (unknown) (unknown) Vital Signs - 8 (units (unknown) date) hr unknown) (unknown) (no (unknown) (unknown) W/EXTENDED (units (unk nown) date) unknown) (unknown) (no (unknown) (unknown) mind' (units (unkno wn) date) unknown) (unknown) (no (unknown) (unknown) out of his (units (unk nown) date) unknown) (unknown) (no (unknown) (unknown) take 1 tablet by (units (unknown) date) mouth once daily unknown) (unknown) (no (unknown) (unknown) (no value) (units (unk nown) date) unknown) (unknown) (no (unknown) (unknown) Zyrtec 10 mg (units (u nknown) date) Capsule unknown) (unknown) (no (unknown) (unknown) acetaminophen-cod (units (unknown) date) eine 300-30 mg unknown) tablet (unknown) (no (unknown) (unknown) clonidine HCl 0.1 (units (unknown) date) mg tablet unknown) (unknown) (no (unknown) (unknown) docusate sodium (units (unknown) date) 100 mg Capsule unknown) (unknown) (no (unknown) (unknown) ferrous sulfate (units (unknown) date) 325 mg (65 mg unknown) iron) tablet,delayed release (DR/EC) (unknown) (no (unknown) (unknown) fluticasone (units (un known) date) propionate 16 GM unknown) spray,suspension (unknown) (no (unknown) (unknown) furosemide 40 mg (units (unknown) date) tablet unknown) (unknown) (no (unknown) (unknown) glipizide (units (unkn own) date) [Glucotrol XL] 2.5 unknown) mg tablet extended release 24 hr (unknown) (no (unknown) (unknown) levalbuterol (units (u nknown) date) tartrate [Xopenex unknown) HFA] 45 mcg/actuation HFA aerosol inhaler (unknown) (no (unknown) (unknown) lisinopril 10 mg (units (unknown) date) tablet unknown) (unknown) (no (unknown) (unknown) meclizine 25 mg (units (unknown) date) tablet unknown) (unknown) (no (unknown) (unknown) metoprolol (units (unk nown) date) succinate 100 mg unknown) Tablet Extended Release 24 Hr (unknown) (no (unknown) (unknown) montelukast 10 mg (units (unknown) date) Tablet unknown) (unknown) (no (unknown) (unknown) multivitamin (units (u nknown) date) [Multiple unknown) Vitamins] 1 EACH tablet (unknown) (no (unknown) (unknown) oxycodone 5 mg (units (unknown) date) tablet unknown) (unknown) (no (unknown) (unknown) trazodone 100 mg (units (unknown) date) tablet unknown) (unknown) (no (unknown) (unknown) 02/08/22 (units (unkno wn) date) unknown) (unknown) (no (unknown) (unknown) Medication (units (unk nown) date) Instructions unknown) Recorded (unknown) (no (unknown) (unknown) Medication (units (unk nown) date) Instructions unknown) Recorded Confirmed (unknown) (no (unknown) (unknown) caps (units (unkno wn) date) unknown) (unknown) (no (unknown) (unknown) tabs (units (unkno wn) date) unknown) (unknown) (no (unknown) (unknown) (Xopenex HFA) #15 (units (unknown) date) grams unknown) (unknown) (no (unknown) (unknown) [id number] (units (unkn own) date) unknown) (unknown) (no (unknown) (unknown) 02/03/22 (units (unkno wn) date) unknown) (unknown) (no (unknown) (unknown) 02/08/22 08:54 (units (unknown) date) unknown) (unknown) (no (unknown) (unknown) 02/08/22 08:57 (units (unknown) date) unknown) (unknown) (no (unknown) (unknown) 08:38 (units (unkno wn) date) unknown) (unknown) (no (unknown) (unknown) 08:39 (units (unkno wn) date) unknown) (unknown) (no (unknown) (unknown) 0RF (units (unkno wn) date) unknown) (unknown) (no (unknown) (unknown) ANTIBIOTICS)] (units ( unknown) date) unknown) (unknown) (no (unknown) (unknown) Achalasia (units (unkn own) date) unknown) (unknown) (no (unknown) (unknown) Age/Sex: 76 / M (units (unknown) date) unknown) (unknown) (no (unknown) (unknown) Allergy/AdvReac (units (unknown) date) Type Severity unknown) Reaction Status Date / Time (unknown) (no (unknown) (unknown) Anginal pain (units (u nknown) date) unknown) (unknown) (no (unknown) (unknown) Antibiotics) (units (u nknown) date) unknown) (unknown) (no (unknown) (unknown) Asthma (units (unkno wn) date) unknown) (unknown) (no (unknown) (unknown) Atrial (units (unkno wn) date) fibrillation unknown) (unknown) (no (unknown) (unknown) Blood Culture (units ( unknown) date) Stat unknown) (unknown) (no (unknown) (unknown) Blood Pressure (units (unknown) date) 149/71 H 02/08/22 unknown) 08:39 (unknown) (no (unknown) (unknown) Blood Pressure (units (unknown) date) 149/71 H unknown) (unknown) (no (unknown) (unknown) CBC Auto Diff (units ( unknown) date) [Complete Blood unknown) Count AUTO DIFF] Stat (unknown) (no (unknown) (unknown) CMP (units (unkno wn) date) [Comprehensive unknown) Metabolic Panel] Stat (unknown) (no (unknown) (unknown) COPD (chronic (units ( unknown) date) obstructive unknown) pulmonary disease) (unknown) (no (unknown) (unknown) Cervical spinal (units (unknown) date) stenosis unknown) (unknown) (no (unknown) (unknown) Chief complaint: (units (unknown) date) Weakness unknown) (unknown) (no (unknown) (unknown) 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 (10/22/16) (unknown) (no (unknown) (unknown) Coronary artery (units (unknown) date) disease unknown) (unknown) (no (unknown) (unknown) Course (units (unkno wn) date) unknown) (unknown) (no (unknown) (unknown) : 1945 (units (unknown) date) Acct:[id number] unknown) (unknown) (no (unknown) (unknown) Kimmy Gomez, (units (unknown) date) MD [Primary Care unknown) Provider] - (unknown) (no (unknown) (unknown) Departure (units (unkn own) date) unknown) (unknown) (no (unknown) (unknown) Discharge Plan (units (unknown) date) unknown) (unknown) (no (unknown) (unknown) EKG-12 Lead Stat (units (unknown) date) unknown) (unknown) (no (unknown) (unknown) ER Physician: (units ( unknown) date) Bridgett Fletcher unknown) D.O. (unknown) (no (unknown) (unknown) Exam (units (unkno wn) date) unknown) (unknown) (no (unknown) (unknown) Family History (units (unknown) date) (Reviewed 02/07/22 unknown) @ 11:16 by [facility]) (unknown) (no (unknown) (unknown) Father (units (unkno wn) date) Hypertension unknown) (unknown) (no (unknown) (unknown) General (units (unkno wn) date) unknown) (unknown) (no (unknown) (unknown) H/O arthroscopic (units (unknown) date) knee surgery unknown) (11/14/17) (unknown) (no (unknown) (unknown) HPI - Weakness (units (unknown) date) unknown) (unknown) (no (unknown) (unknown) History of aortic (units (unknown) date) dissection unknown) () (unknown) (no (unknown) (unknown) History of (units (unk nown) date) arthroplasty of unknown) left knee (05/24/19) (unknown) (no (unknown) (unknown) History of (units (unk nown) date) arthroplasty of unknown) right knee (unknown) (no (unknown) (unknown) History of (units (unk nown) date) bilateral total unknown) hip arthroplasty (unknown) (no (unknown) (unknown) History of (units (unk nown) date) cardiac cath unknown) () (unknown) (no (unknown) (unknown) History of (units (unk nown) date) esophageal surgery unknown) (unknown) (no (unknown) (unknown) History of (units (unk nown) date) incision and unknown) drainage () (unknown) (no (unknown) (unknown) History of prior (units (unknown) date) ablation treatment unknown) () (unknown) (no (unknown) (unknown) History of (units (unk nown) date) surgery unknown) (unknown) (no (unknown) (unknown) Hx of (units (unkno wn) date) cholecystectomy unknown) (unknown) (no (unknown) (unknown) Hx of hernia (units (u nknown) date) repair unknown) (unknown) (no (unknown) (unknown) Hx of sinus (units (un known) date) surgery unknown) (unknown) (no (unknown) (unknown) Hypertension (units (u nknown) date) unknown) (unknown) (no (unknown) (unknown) INHIBITOR] (units (unk nown) date) unknown) (unknown) (no (unknown) (unknown) Inhibitor (units (unkn own) date) MUSCLES unknown) (unknown) (no (unknown) (unknown) Initial Vital (units ( unknown) date) Signs unknown) (unknown) (no (unknown) (unknown) Initial Vital (units ( unknown) date) Signs: unknown) (unknown) (no (unknown) (unknown) Ischemic (units (unkno wn) date) cardiomyopathy unknown) (unknown) (no (unknown) (unknown) Lactate (Lactic (units (unknown) date) Acid) Stat unknown) (unknown) (no (unknown) (unknown) Medical History (units (unknown) date) (Reviewed 02/07/22 unknown) @ 11:16 by [facility]) (unknown) (no (unknown) (unknown) Mode of arrival: (units (unknown) date) Ambulatory unknown) (unknown) (no (unknown) (unknown) Mother (units (unknown) date) Stroke unknown) (unknown) (no (unknown) (unknown) Narcotic (units (unkno wn) date) dependence unknown) (unknown) (no (unknown) (unknown) Neck pain, (units (unk nown) date) chronic unknown) (unknown) (no (unknown) (unknown) No Action (units (unkn own) date) unknown) (unknown) (no (unknown) (unknown) Ordered: (units (unkno wn) date) unknown) (unknown) (no (unknown) (unknown) Orders (units (unkno wn) date) unknown) (unknown) (no (unknown) (unknown) Oxygen Delivery (units (unknown) date) Method 02/08/22 unknown) 08:39 (unknown) (no (unknown) (unknown) Oxygen Delivery (units (unknown) date) Method Room Air unknown) (unknown) (no (unknown) (unknown) Patient History (units (unknown) date) unknown) (unknown) (no (unknown) (unknown) Patient: (units (unkno wn) date) JackelineDominic Gisele unknown) MR#: M (unknown) (no (unknown) (unknown) Prescriptions: (units (unknown) date) unknown) (unknown) (no (unknown) (unknown) Procalcitonin (units ( unknown) date) Stat unknown) (unknown) (no (unknown) (unknown) Pulse Oximetry (units (unknown) date) 97 02/08/22 unknown) 08:39 (unknown) (no (unknown) (unknown) Pulse Oximetry 97 (units (unknown) date) unknown) (unknown) (no (unknown) (unknown) Pulse Rate 117 H (units (unknown) date) 02/08/22 08:39 unknown) (unknown) (no (unknown) (unknown) Pulse Rate 117 H (units (unknown) date) unknown) (unknown) (no (unknown) (unknown) Referrals: (units (unk nown) date) unknown) (unknown) (no (unknown) (unknown) Related Data (units (u nknown) date) unknown) (unknown) (no (unknown) (unknown) Respiratory Rate (units (unknown) date) 14 02/08/22 unknown) 08:39 (unknown) (no (unknown) (unknown) Respiratory Rate (units (unknown) date) 14 unknown) (unknown) (no (unknown) (unknown) S/P CABG x 3 (units (u nknown) date) () unknown) (unknown) (no (unknown) (unknown) S/P cervical (units (u nknown) date) spinal fusion unknown) (unknown) (no (unknown) (unknown) S/P lumbar fusion (units (unknown) date) unknown) (unknown) (no (unknown) (unknown) Signed By: (units (unk nown) date) unknown) (unknown) (no (unknown) (unknown) Smoking Status: (units (unknown) date) Former smoker unknown) (unknown) (no (unknown) (unknown) Smoking Status: (units (unknown) date) Former smoker unknown) (unknown) (no (unknown) (unknown) Social History (units (unknown) date) (Reviewed 02/07/22 unknown) @ 11:16 by [facility]) (unknown) (no (unknown) (unknown) Source: patient (units (unknown) date) unknown) (unknown) (no (unknown) (unknown) Stated complaint: (units (unknown) date) 'NEEDS MORE CARE' unknown) DISCHARGED FROM 02/07 (unknown) (no (unknown) (unknown) [id number] (units (unknown) date) Reductase AdvReac unknown) Mild WEAK Verified 02/08/22 08:38 (unknown) (no (unknown) (unknown) Substance Use (units ( unknown) date) Type: does not use unknown) (unknown) (no (unknown) (unknown) Sulfa (units (unkno wn) date) (Sulfonamide unknown) Allergy Mild RASH Verified 02/08/22 08:38 (unknown) (no (unknown) (unknown) Surgical History (units (unknown) date) (Reviewed 02/07/22 unknown) @ 11:16 by [facility]) (unknown) (no (unknown) (unknown) Temperature 98.9 (units (unknown) date) F 02/08/22 08:39 unknown) (unknown) (no (unknown) (unknown) Temperature 98.9 (units (unknown) date) F unknown) (unknown) (no (unknown) (unknown) Time Seen by (units (u nknown) date) Provider: 02/08/22 unknown) 08:41 (unknown) (no (unknown) (unknown) Troponin + CK (units ( unknown) date) Cardiac Panel Stat unknown) (unknown) (no (unknown) (unknown) UA Complete (units (un known) date) [Urinalysis and unknown) Microscopic] Stat (unknown) (no (unknown) (unknown) Ventricular (units (un known) date) bigeminy unknown) (unknown) (no (unknown) (unknown) Vital Signs (units (un known) date) unknown) (unknown) (no (unknown) (unknown) Vital signs: (units (u nknown) date) unknown) (unknown) (no (unknown) (unknown) XR chest 1V Stat (units (unknown) date) unknown) (unknown) (no (unknown) (unknown) [[id number] (units (unknown) date) REDUCTASE unknown) (unknown) (no (unknown) (unknown) [SULFA (units (unkno wn) date) (SULFONAMIDE unknown) (unknown) (no (unknown) (unknown) acetaminophen 300 (units (unknown) date) mg-codeine 30 mg 2 unknown) tab PO Q4H PRN Pain (Scale Score 02/03/22 (unknown) (no (unknown) (unknown) alcohol intake (units (unknown) date) frequency: 0-2 unknown) drinks per day (unknown) (no (unknown) (unknown) alcohol intake: (units (unknown) date) current unknown) (unknown) (no (unknown) (unknown) buprenorphine (units ( unknown) date) [BUPRENORPHINE] unknown) AdvReac Mild NAUSEA, Verified 02/08/22 08:38 (unknown) (no (unknown) (unknown) celecoxib (units (unkn own) date) [CELECOXIB] unknown) Allergy Mild SWELLING Verified 02/08/22 08:38 (unknown) (no (unknown) (unknown) cetirizine 10 mg (units (unknown) date) capsule (Zyrtec) unknown) 10 mg PO DAILY 05/22/19 02/03/22 (unknown) (no (unknown) (unknown) clonidine HCl 0.1 (units (unknown) date) mg tablet 0.2 mg unknown) PO BID 12/08/21 02/03/22 (unknown) (no (unknown) (unknown) diazepam [From (units (unknown) date) Valium] Allergy unknown) Severe Confusion Verified 02/08/22 08:38 (unknown) (no (unknown) (unknown) docusate sodium (units (unknown) date) 100 mg capsule 100 unknown) mg PO BID PRN constipation #60 02/07/22 (unknown) (no (unknown) (unknown) fentanyl AdvReac (units (unknown) date) Severe Confusion unknown) Verified 02/08/22 08:39 (unknown) (no (unknown) (unknown) ferrous sulfate (units (unknown) date) 325 mg (65 mg 325 unknown) mg PO DAILY 10/19/19 02/03/22 (unknown) (no (unknown) (unknown) fluticasone (units (un known) date) propionate 50 1 unknown) spray intranasal DAILY PRN 11/02/17 02/03/22 (unknown) (no (unknown) (unknown) furosemide 40 mg (units (unknown) date) tablet 40 mg PO unknown) DAILY 02/03/22 02/03/22 (unknown) (no (unknown) (unknown) glipizide 2.5 mg (units (unknown) date) tablet, extended unknown) 2.5 mg PO DAILY 10/08/21 02/03/22 (unknown) (no (unknown) (unknown) household (units (unkn own) date) members: spouse unknown) (unknown) (no (unknown) (unknown) hydromorphone (units ( unknown) date) [From Dilaudid] unknown) Allergy Severe Hallucinating, Verified 02/08/22 (unknown) (no (unknown) (unknown) hyoscyamine (units (un known) date) [HYOSCYAMINE] unknown) AdvReac Mild LEG Verified 02/08/22 08:38 (unknown) (no (unknown) (unknown) iron) (units (unkno wn) date) tablet,delayed unknown) release (unknown) (no (unknown) (unknown) latex [LATEX] (units ( unknown) date) Allergy Mild RASH unknown) Verified 02/08/22 08:38 (unknown) (no (unknown) (unknown) levalbuterol (units (u nknown) date) tartrate 45 1 puff unknown) inhalation Q4-6H PRN 06/22/18 (unknown) (no (unknown) (unknown) lisinopril 10 mg (units (unknown) date) tablet 10 mg PO unknown) DAILY 12/08/21 02/03/22 (unknown) (no (unknown) (unknown) mcg/actuation (units ( unknown) date) aerosol inhaler unknown) shortness of breath or wheezing (unknown) (no (unknown) (unknown) mcg/actuation (units ( unknown) date) nasal Allergy unknown) Symptoms ##0 (unknown) (no (unknown) (unknown) meclizine 25 mg (units (unknown) date) tablet 25 mg PO unknown) QID PRN vertigo #30 tabs 10/09/21 (unknown) (no (unknown) (unknown) metoprolol (units (unk nown) date) succinate 100 mg unknown) 100 mg PO DAILY 02/03/22 02/03/22 (unknown) (no (unknown) (unknown) montelukast 10 mg (units (unknown) date) tablet 10 mg PO unknown) DAILY 02/03/22 02/03/22 (unknown) (no (unknown) (unknown) morphine Allergy (units (unknown) date) Severe unknown) Hallucinating, Verified 02/08/22 08:38 (unknown) (no (unknown) (unknown) multivitamin (units (u nknown) date) (Multiple Vitamins unknown) 1 tab PO DAILY ##0 12/20/16 02/03/22 (unknown) (no (unknown) (unknown) oxycodone 5 mg (units (unknown) date) tablet 5 mg PO Q4H unknown) PRN pain, moderate #60 02/07/22 (unknown) (no (unknown) (unknown) release 24 hr (units ( unknown) date) (Glucotrol XL) unknown) (unknown) (no (unknown) (unknown) spray,suspension (units (unknown) date) unknown) (unknown) (no (unknown) (unknown) substance use (units ( unknown) date) type: does not unknown) use (unknown) (no (unknown) (unknown) tablet 4-6) (units (un known) date) unknown) (unknown) (no (unknown) (unknown) tablet) (units (unkno wn) date) unknown) (unknown) (no (unknown) (unknown) tablet,extended (units (unknown) date) release 24 hr unknown) (unknown) (no (unknown) (unknown) trazodone 100 mg (units (unknown) date) tablet 400 tab PO unknown) BEDTIME 30 days #120 12/10/21 (unknown) (no (unknown) (unknown) varenicline (units (un known) date) [VARENICLINE] unknown) AdvReac Severe Paranoia Verified 02/08/22 08:38 Result panel 122 (unknown) (no date) (unknown) (unknown) 0 /uL (unkn own) (unknown) (no date) (unknown) (unknown) 0.7 % (unkn own) (unknown) (no date) (unknown) (unknown) 100 /uL (unkn own) (unknown) (no date) (unknown) (unknown) 11.3 g/dL (unkn own) (unknown) (no date) (unknown) (unknown) 11.7 % (unkn own) (unknown) (no date) (unknown) (unknown) 12.9 % (unkn own) (unknown) (no date) (unknown) (unknown) 14.4 % (unkn own) (unknown) (no date) (unknown) (unknown) 2.1 % (unkn own) (unknown) (no date) (unknown) (unknown) 3.52 X10 6/uL (unkn own) (unknown) (no date) (unknown) (unknown) 319 X10 3/uL (unkn own) (unknown) (no date) (unknown) (unknown) 32.0 PG (unkn own) (unknown) (no date) (unknown) (unknown) 32.7 % (unkn own) (unknown) (no date) (unknown) (unknown) 34.5 % (unkn own) (unknown) (no date) (unknown) (unknown) 4200 /uL (unkn own) (unknown) (no date) (unknown) (unknown) 5.9 X10 3/uL (unkn own) (unknown) (no date) (unknown) (unknown) 700 /uL (unkn own) (unknown) (no date) (unknown) (unknown) 71.1 % (unkn own) (unknown) (no date) (unknown) (unknown) 800 /uL (unkn own) (unknown) (no date) (unknown) (unknown) 92.8 fL (unkn own) Result panel 123 (unknown) (no (unknown) (unknown) (no value) (units (unk nown) date) unknown) (unknown) (no (unknown) (unknown) Date of Service: (units (unknown) date) 02/08/22 unknown) (unknown) (no (unknown) (unknown) (no value) (units (unk nown) date) unknown) (unknown) (no (unknown) (unknown) 'He gets (units (unkno wn) date) unknown) (unknown) (no (unknown) (unknown) 0.2 mg PO BID (units ( unknown) date) unknown) (unknown) (no (unknown) (unknown) 1 puff INHALATION (units (unknown) date) Q4-6H PRN (Reason: unknown) shortness of breath or wheezing) Qty: 15 (unknown) (no (unknown) (unknown) 1 spray (units (unkno wn) date) Intranasal DAILY unknown) PRN (Reason: Allergy Symptoms) Qty: 0 (unknown) (no (unknown) (unknown) 1 tab PO DAILY (units (unknown) date) Qty: 0 unknown) (unknown) (no (unknown) (unknown) 1-2 tabs q 4 (units (u nknown) date) hours PRN moderate unknown) to severe pain (unknown) (no (unknown) (unknown) 10 mg PO DAILY (units (unknown) date) unknown) (unknown) (no (unknown) (unknown) 100 mg PO BID PRN (units (unknown) date) (Reason: unknown) constipation) Qty: 60 2RF (unknown) (no (unknown) (unknown) 100 mg PO DAILY (units (unknown) date) unknown) (unknown) (no (unknown) (unknown) 2 tab PO Q4H PRN (units (unknown) date) (Reason: Pain unknown) (Scale Score 4-6)) (unknown) (no (unknown) (unknown) 2.5 mg PO DAILY (units (unknown) date) unknown) (unknown) (no (unknown) (unknown) 25 mg PO QID PRN (units (unknown) date) (Reason: vertigo) unknown) Qty: 30 0RF (unknown) (no (unknown) (unknown) 325 mg PO DAILY (units (unknown) date) unknown) (unknown) (no (unknown) (unknown) 40 mg PO DAILY (units (unknown) date) unknown) (unknown) (no (unknown) (unknown) 400 tab PO (units (unk nown) date) BEDTIME 30 Days unknown) Qty: 120 0RF (unknown) (no (unknown) (unknown) 5 mg PO Q4H PRN (units (unknown) date) (Reason: pain, unknown) moderate) Qty: 60 0RF (unknown) (no (unknown) (unknown) ANXIETY, (units (unkno wn) date) unknown) (unknown) (no (unknown) (unknown) Allergies (units (unkn own) date) unknown) (unknown) (no (unknown) (unknown) DIZZINESS (units (unkn own) date) unknown) (unknown) (no (unknown) (unknown) ED Orders (units (unkn own) date) unknown) (unknown) (no (unknown) (unknown) EXPOSURE (units (unkno wn) date) unknown) (unknown) (no (unknown) (unknown) Emergency Report (units (unknown) date) unknown) (unknown) (no (unknown) (unknown) Home Medications (units (unknown) date) unknown) (unknown) (no (unknown) (unknown) [facility] (units (unknown) date) [address] unknown) [place] [address] (unknown) (no (unknown) (unknown) JERKING, (units (unkno wn) date) unknown) (unknown) (no (unknown) (unknown) Label Comments: (units (unknown) date) unknown) (unknown) (no (unknown) (unknown) MINUTES (units (unkno wn) date) unknown) (unknown) (no (unknown) (unknown) NAUSEA W/I (units (unk nown) date) unknown) (unknown) (no (unknown) (unknown) Previous Rx's (units ( unknown) date) unknown) (unknown) (no (unknown) (unknown) Rx Instructions: (units (unknown) date) unknown) (unknown) (no (unknown) (unknown) Vital Signs - 8 (units (unknown) date) hr unknown) (unknown) (no (unknown) (unknown) W/EXTENDED (units (unk nown) date) unknown) (unknown) (no (unknown) (unknown) mind' (units (unkno wn) date) unknown) (unknown) (no (unknown) (unknown) out of his (units (unk nown) date) unknown) (unknown) (no (unknown) (unknown) take 1 tablet by (units (unknown) date) mouth once daily unknown) (unknown) (no (unknown) (unknown) (no value) (units (unk nown) date) unknown) (unknown) (no (unknown) (unknown) Zyrtec 10 mg (units (u nknown) date) Capsule unknown) (unknown) (no (unknown) (unknown) acetaminophen-cod (units (unknown) date) eine 300-30 mg unknown) tablet (unknown) (no (unknown) (unknown) clonidine HCl 0.1 (units (unknown) date) mg tablet unknown) (unknown) (no (unknown) (unknown) docusate sodium (units (unknown) date) 100 mg Capsule unknown) (unknown) (no (unknown) (unknown) ferrous sulfate (units (unknown) date) 325 mg (65 mg unknown) iron) tablet,delayed release (DR/EC) (unknown) (no (unknown) (unknown) fluticasone (units (un known) date) propionate 16 GM unknown) spray,suspension (unknown) (no (unknown) (unknown) furosemide 40 mg (units (unknown) date) tablet unknown) (unknown) (no (unknown) (unknown) glipizide (units (unkn own) date) [Glucotrol XL] 2.5 unknown) mg tablet extended release 24 hr (unknown) (no (unknown) (unknown) levalbuterol (units (u nknown) date) tartrate [Xopenex unknown) HFA] 45 mcg/actuation HFA aerosol inhaler (unknown) (no (unknown) (unknown) lisinopril 10 mg (units (unknown) date) tablet unknown) (unknown) (no (unknown) (unknown) meclizine 25 mg (units (unknown) date) tablet unknown) (unknown) (no (unknown) (unknown) metoprolol (units (unk nown) date) succinate 100 mg unknown) Tablet Extended Release 24 Hr (unknown) (no (unknown) (unknown) montelukast 10 mg (units (unknown) date) Tablet unknown) (unknown) (no (unknown) (unknown) multivitamin (units (u nknown) date) [Multiple unknown) Vitamins] 1 EACH tablet (unknown) (no (unknown) (unknown) oxycodone 5 mg (units (unknown) date) tablet unknown) (unknown) (no (unknown) (unknown) trazodone 100 mg (units (unknown) date) tablet unknown) (unknown) (no (unknown) (unknown) 02/08/22 (units (unkno wn) date) unknown) (unknown) (no (unknown) (unknown) Medication (units (unk nown) date) Instructions unknown) Recorded (unknown) (no (unknown) (unknown) Medication (units (unk nown) date) Instructions unknown) Recorded Confirmed (unknown) (no (unknown) (unknown) caps (units (unkno wn) date) unknown) (unknown) (no (unknown) (unknown) tabs (units (unkno wn) date) unknown) (unknown) (no (unknown) (unknown) (Xopenex HFA) #15 (units (unknown) date) grams unknown) (unknown) (no (unknown) (unknown) [id number] (units (unkn own) date) unknown) (unknown) (no (unknown) (unknown) 02/03/22 (units (unkno wn) date) unknown) (unknown) (no (unknown) (unknown) 02/08/22 08:54 (units (unknown) date) unknown) (unknown) (no (unknown) (unknown) 02/08/22 08:57 (units (unknown) date) unknown) (unknown) (no (unknown) (unknown) 08:38 (units (unkno wn) date) unknown) (unknown) (no (unknown) (unknown) 08:39 (units (unkno wn) date) unknown) (unknown) (no (unknown) (unknown) 0RF (units (unkno wn) date) unknown) (unknown) (no (unknown) (unknown) 12 point review (units (unknown) date) of systems is unknown) negative except for those stated above and HPI (unknown) (no (unknown) (unknown) ABDOMEN: Soft, (units (unknown) date) nontender. unknown) Normoactive bowel sounds all 4 quadrants. No (unknown) (no (unknown) (unknown) ANTIBIOTICS)] (units ( unknown) date) unknown) (unknown) (no (unknown) (unknown) Achalasia (units (unkn own) date) unknown) (unknown) (no (unknown) (unknown) Age/Sex: 76 / M (units (unknown) date) unknown) (unknown) (no (unknown) (unknown) Allergy/AdvReac (units (unknown) date) Type Severity unknown) Reaction Status Date / Time (unknown) (no (unknown) (unknown) Anginal pain (units (u nknown) date) unknown) (unknown) (no (unknown) (unknown) Antibiotics) (units (u nknown) date) unknown) (unknown) (no (unknown) (unknown) Asthma (units (unkno wn) date) unknown) (unknown) (no (unknown) (unknown) Atrial (units (unkno wn) date) fibrillation unknown) (unknown) (no (unknown) (unknown) Blood Culture (units ( unknown) date) Stat unknown) (unknown) (no (unknown) (unknown) Blood Pressure (units (unknown) date) 149/71 H 02/08/22 unknown) 08:39 (unknown) (no (unknown) (unknown) Blood Pressure (units (unknown) date) 149/71 H unknown) (unknown) (no (unknown) (unknown) CARDIOVASCULAR: (units (unknown) date) Denies chest pain, unknown) palpitations, orthopnea, edema (unknown) (no (unknown) (unknown) CARDIOVASCULAR: (units (unknown) date) Regular rate and unknown) rhythm without murmurs, rubs or gallops. (unknown) (no (unknown) (unknown) CBC Auto Diff (units ( unknown) date) [Complete Blood unknown) Count AUTO DIFF] Stat (unknown) (no (unknown) (unknown) CMP (units (unkno wn) date) [Comprehensive unknown) Metabolic Panel] Stat (unknown) (no (unknown) (unknown) COPD (chronic (units ( unknown) date) obstructive unknown) pulmonary disease) (unknown) (no (unknown) (unknown) Cervical spinal (units (unknown) date) stenosis unknown) (unknown) (no (unknown) (unknown) Chief complaint: (units (unknown) date) Weakness unknown) (unknown) (no (unknown) (unknown) 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 (10/22/16) (unknown) (no (unknown) (unknown) Coronary artery (units (unknown) date) disease unknown) (unknown) (no (unknown) (unknown) Course (units (unkno wn) date) unknown) (unknown) (no (unknown) (unknown) : 1945 (units (unknown) date) Acct:[id number] unknown) (unknown) (no (unknown) (unknown) Kimmy Gomez, (units (unknown) date) [Primary Care unknown) Provider] - (unknown) (no (unknown) (unknown) Departure (units (unkn own) date) unknown) (unknown) (no (unknown) (unknown) Discharge Plan (units (unknown) date) unknown) (unknown) (no (unknown) (unknown) EKG-12 Lead Stat (units (unknown) date) unknown) (unknown) (no (unknown) (unknown) ER Physician: (units ( unknown) date) Bridgett Fletcher unknown) D.O. (unknown) (no (unknown) (unknown) EXTREMITIES: (units (u nknown) date) Normal range of unknown) motion, no clubbing or edema. Neurovascularly (unknown) (no (unknown) (unknown) Exam (units (unkno wn) date) unknown) (unknown) (no (unknown) (unknown) Family History (units (unknown) date) (Reviewed 02/07/22 unknown) @ 11:16 [facility]) (unknown) (no (unknown) (unknown) Father (units (unkno wn) date) Hypertension unknown) (unknown) (no (unknown) (unknown) GASTROINTESTINAL: (units (unknown) date) Denies nausea, unknown) vomiting, abdominal pain, diarrhea, (unknown) (no (unknown) (unknown) GENERAL: Alert (units (unknown) date) slightly confused unknown) 76-year-old male and in no acute distress. (unknown) (no (unknown) (unknown) GENERAL: Denies (units (unknown) date) chills, fatigue, unknown) malaise, fever, sweats, travel (unknown) (no (unknown) (unknown) : Denies (units (unkn own) date) dysuria, unknown) frequency, incontinence, hematuria, urinary retention, flank (unknown) (no (unknown) (unknown) General (units (unkno wn) date) unknown) (unknown) (no (unknown) (unknown) H/O arthroscopic (units (unknown) date) knee surgery unknown) (11/14/17) (unknown) (no (unknown) (unknown) HEENT: Denies (units ( unknown) date) sinus pain, ear unknown) pain, sore throat, difficulty swallowing, neck (unknown) (no (unknown) (unknown) HEENT: Head (units (un known) date) atraumatic,EOMI, unknown) pupils reactive, face symmetric, moist mucous (unknown) (no (unknown) (unknown) HPI - Weakness (units (unknown) date) unknown) (unknown) (no (unknown) (unknown) HPI Narrative: (units (unknown) date) unknown) (unknown) (no (unknown) (unknown) He is having some (units (unknown) date) mild pain now but unknown) seems to be definitely more appropriate he (unknown) (no (unknown) (unknown) History of (units (unk nown) date) Present Illness unknown) (unknown) (no (unknown) (unknown) History of aortic (units (unknown) date) dissection unknown) () (unknown) (no (unknown) (unknown) History of (units (unk nown) date) arthroplasty of unknown) left knee (05/24/19) (unknown) (no (unknown) (unknown) History of (units (unk nown) date) arthroplasty of unknown) right knee (unknown) (no (unknown) (unknown) History of (units (unk nown) date) bilateral total unknown) hip arthroplasty (unknown) (no (unknown) (unknown) History of (units (unk nown) date) cardiac cath unknown) () (unknown) (no (unknown) (unknown) History of (units (unk nown) date) esophageal surgery unknown) (unknown) (no (unknown) (unknown) History of (units (unk nown) date) incision and unknown) drainage (-2016) (unknown) (no (unknown) (unknown) History of prior (units (unknown) date) ablation treatment unknown) () (unknown) (no (unknown) (unknown) History of (units (unk nown) date) surgery unknown) (unknown) (no (unknown) (unknown) Hx of (units (unkno wn) date) cholecystectomy unknown) (unknown) (no (unknown) (unknown) Hx of hernia (units (u nknown) date) repair unknown) (unknown) (no (unknown) (unknown) Hx of sinus (units (un known) date) surgery unknown) (unknown) (no (unknown) (unknown) Hypertension (units (u nknown) date) unknown) (unknown) (no (unknown) (unknown) INHIBITOR] (units (unk nown) date) unknown) (unknown) (no (unknown) (unknown) Inhibitor (units (unkn own) date) MUSCLES unknown) (unknown) (no (unknown) (unknown) Initial Vital (units ( unknown) date) Signs unknown) (unknown) (no (unknown) (unknown) Initial Vital (units ( unknown) date) Signs: unknown) (unknown) (no (unknown) (unknown) Ischemic (units (unkno wn) date) cardiomyopathy unknown) (unknown) (no (unknown) (unknown) Lactate (Lactic (units (unknown) date) Acid) Stat unknown) (unknown) (no (unknown) (unknown) MUSCULOSKELETAL: (units (unknown) date) See HPI unknown) (unknown) (no (unknown) (unknown) Medical History (units (unknown) date) (Reviewed 02/07/22 unknown) @ 11:16 [facility]) (unknown) (no (unknown) (unknown) Mode of arrival: (units (unknown) date) Ambulatory unknown) (unknown) (no (unknown) (unknown) Mother (units (unknown) date) Stroke unknown) (unknown) (no (unknown) (unknown) NEUROLOGIC: (units (un known) date) Denies weakness, unknown) dizziness, headache, numbness, change in speech, (unknown) (no (unknown) (unknown) NEUROLOGICAL: (units ( unknown) date) Alert and oriented unknown) x2.Normal gait and speech. Cranial nerves II (unknown) (no (unknown) (unknown) Narcotic (units (unkno wn) date) dependence unknown) (unknown) (no (unknown) (unknown) Narrative: (units (unk nown) date) unknown) (unknown) (no (unknown) (unknown) Neck pain, (units (unk nown) date) chronic unknown) (unknown) (no (unknown) (unknown) No Action (units (unkn own) date) unknown) (unknown) (no (unknown) (unknown) Ordered: (units (unkno wn) date) unknown) (unknown) (no (unknown) (unknown) Orders (units (unkno wn) date) unknown) (unknown) (no (unknown) (unknown) Oxygen Delivery (units (unknown) date) Method 02/08/22 unknown) 08:39 (unknown) (no (unknown) (unknown) Oxygen Delivery (units (unknown) date) Method Room Air unknown) (unknown) (no (unknown) (unknown) PSYCHIATRIC: No (units (unknown) date) concerning unknown) psychosocial issues. (unknown) (no (unknown) (unknown) Patient History (units (unknown) date) unknown) (unknown) (no (unknown) (unknown) Patient is a (units (u nknown) date) 76-year-old male unknown) with history of COPD, chronic AFib, not (unknown) (no (unknown) (unknown) Patient: (units (unkno wn) date) Dominic Viveros unknown) MR#: [id number] (unknown) (no (unknown) (unknown) Prescriptions: (units (unknown) date) unknown) (unknown) (no (unknown) (unknown) Procalcitonin (units ( unknown) date) Stat unknown) (unknown) (no (unknown) (unknown) Pulse Oximetry (units (unknown) date) 97 02/08/22 unknown) 08:39 (unknown) (no (unknown) (unknown) Pulse Oximetry 97 (units (unknown) date) unknown) (unknown) (no (unknown) (unknown) Pulse Rate 117 H (units (unknown) date) 02/08/22 08:39 unknown) (unknown) (no (unknown) (unknown) Pulse Rate 117 H (units (unknown) date) unknown) (unknown) (no (unknown) (unknown) RESPIRATORY: (units (u nknown) date) Breath sounds unknown) equal bilaterally, no wheezes rales or rhonchi. (unknown) (no (unknown) (unknown) RESPIRATORY: (units (u nknown) date) Denies dyspnea, unknown) cough, wheezing, hemoptysis, sputum. (unknown) (no (unknown) (unknown) Referrals: (units (unk nown) date) unknown) (unknown) (no (unknown) (unknown) Related Data (units (u nknown) date) unknown) (unknown) (no (unknown) (unknown) Respiratory Rate (units (unknown) date) 14 02/08/22 unknown) 08:39 (unknown) (no (unknown) (unknown) Respiratory Rate (units (unknown) date) 14 unknown) (unknown) (no (unknown) (unknown) Review of Systems (units (unknown) date) unknown) (unknown) (no (unknown) (unknown) S/P CABG x 3 (units (u nknown) date) () unknown) (unknown) (no (unknown) (unknown) S/P cervical (units (u nknown) date) spinal fusion unknown) (unknown) (no (unknown) (unknown) S/P lumbar fusion (units (unknown) date) unknown) (unknown) (no (unknown) (unknown) SKIN: No rash, no (units (unknown) date) erythema, no unknown) pruritus (unknown) (no (unknown) (unknown) SKIN: Warm, dry, (units (unknown) date) no laceration, no unknown) petechiae, no rashes or lesions. (unknown) (no (unknown) (unknown) Signed By: (units (unk nown) date) unknown) (unknown) (no (unknown) (unknown) Smoking Status: (units (unknown) date) Former smoker unknown) (unknown) (no (unknown) (unknown) Smoking Status: (units (unknown) date) Former smoker unknown) (unknown) (no (unknown) (unknown) Social History (units (unknown) date) (Reviewed 02/07/22 unknown) @ 11:16 [facility]) (unknown) (no (unknown) (unknown) Source: patient (units (unknown) date) unknown) (unknown) (no (unknown) (unknown) Stated complaint: (units (unknown) date) 'NEEDS MORE CARE' unknown) DISCHARGED FROM 02/07 (unknown) (no (unknown) (unknown) [id number] (units (unknown) date) Reductase AdvReac unknown) Mild WEAK Verified 02/08/22 08:38 (unknown) (no (unknown) (unknown) Substance Use (units ( unknown) date) Type: does not use unknown) (unknown) (no (unknown) (unknown) Sulfa (units (unkno wn) date) (Sulfonamide unknown) Allergy Mild RASH Verified 02/08/22 08:38 (unknown) (no (unknown) (unknown) Surgical History (units (unknown) date) (Reviewed 02/07/22 unknown) @ 11:16 by [facility]) (unknown) (no (unknown) (unknown) Temperature 98.9 (units (unknown) date) F 02/08/22 08:39 unknown) (unknown) (no (unknown) (unknown) Temperature 98.9 (units (unknown) date) F unknown) (unknown) (no (unknown) (unknown) Time Seen by (units (u nknown) date) Provider: 02/08/22 unknown) 08:41 (unknown) (no (unknown) (unknown) Troponin + CK (units ( unknown) date) Cardiac Panel Stat unknown) (unknown) (no (unknown) (unknown) UA Complete (units (un known) date) [Urinalysis and unknown) Microscopic] Stat (unknown) (no (unknown) (unknown) Ventricular (units (un known) date) bigeminy unknown) (unknown) (no (unknown) (unknown) Vital Signs (units (un known) date) unknown) (unknown) (no (unknown) (unknown) Vital signs: (units (u nknown) date) unknown) (unknown) (no (unknown) (unknown) XR chest 1V Stat (units (unknown) date) unknown) (unknown) (no (unknown) (unknown) [[id number] (units (unknown) date) REDUCTASE unknown) (unknown) (no (unknown) (unknown) [SULFA (units (unkno wn) date) (SULFONAMIDE unknown) (unknown) (no (unknown) (unknown) acetaminophen 300 (units (unknown) date) mg-codeine 30 mg 2 unknown) tab PO Q4H PRN Pain (Scale Score 02/03/22 (unknown) (no (unknown) (unknown) alcohol intake (units (unknown) date) frequency: 0-2 unknown) drinks per day (unknown) (no (unknown) (unknown) alcohol intake: (units (unknown) date) current unknown) (unknown) (no (unknown) (unknown) anticoagulated, (units (unknown) date) ischemic unknown) cardiomyopathy, history of mesenteric ischemic, (unknown) (no (unknown) (unknown) buprenorphine (units ( unknown) date) [BUPRENORPHINE] unknown) AdvReac Mild NAUSEA, Verified 02/08/22 08:38 (unknown) (no (unknown) (unknown) celecoxib (units (unkn own) date) [CELECOXIB] unknown) Allergy Mild SWELLING Verified 02/08/22 08:38 (unknown) (no (unknown) (unknown) cetirizine 10 mg (units (unknown) date) capsule (Zyrtec) unknown) 10 mg PO DAILY 05/22/19 02/03/22 (unknown) (no (unknown) (unknown) chest pain he has (units (unknown) date) no abdominal pain unknown) nausea or vomiting. (unknown) (no (unknown) (unknown) clonidine HCl 0.1 (units (unknown) date) mg tablet 0.2 mg unknown) PO BID 12/08/21 02/03/22 (unknown) (no (unknown) (unknown) confusion (units (unkn own) date) unknown) (unknown) (no (unknown) (unknown) constipation, (units ( unknown) date) melena. unknown) (unknown) (no (unknown) (unknown) diazepam [From (units (unknown) date) Valium] Allergy unknown) Severe Confusion Verified 02/08/22 08:38 (unknown) (no (unknown) (unknown) docusate sodium (units (unknown) date) 100 mg capsule 100 unknown) mg PO BID PRN constipation #60 02/07/22 (unknown) (no (unknown) (unknown) drinking very (units ( unknown) date) much. She states unknown) last night he was very confused seem to be in (unknown) (no (unknown) (unknown) fentanyl AdvReac (units (unknown) date) Severe Confusion unknown) Verified 02/08/22 08:39 (unknown) (no (unknown) (unknown) ferrous sulfate (units (unknown) date) 325 mg (65 mg 325 unknown) mg PO DAILY 10/19/19 02/03/22 (unknown) (no (unknown) (unknown) fluticasone (units (un known) date) propionate 50 1 unknown) spray intranasal DAILY PRN 11/02/17 02/03/22 (unknown) (no (unknown) (unknown) furosemide 40 mg (units (unknown) date) tablet 40 mg PO unknown) DAILY 02/03/22 02/03/22 (unknown) (no (unknown) (unknown) glipizide 2.5 mg (units (unknown) date) tablet, extended unknown) 2.5 mg PO DAILY 10/08/21 02/03/22 (unknown) (no (unknown) (unknown) guarding or (units (un known) date) rebound. unknown) (unknown) (no (unknown) (unknown) he does have a (units (unknown) date) history of alcohol unknown) use states that he really that when (unknown) (no (unknown) (unknown) his stay he had (units (unknown) date) some encephalitis unknown) thought to be due from polypharmacy, although (unknown) (no (unknown) (unknown) household (units (unkn own) date) members: spouse unknown) (unknown) (no (unknown) (unknown) hydromorphone (units ( unknown) date) [From Dilaudid] unknown) Allergy Severe Hallucinating, Verified 02/08/22 (unknown) (no (unknown) (unknown) hyoscyamine (units (un known) date) [HYOSCYAMINE] unknown) AdvReac Mild LEG Verified 02/08/22 08:38 (unknown) (no (unknown) (unknown) hypertension with (units (unknown) date) recent lumbar unknown) fusion, who presents today with confusion. He (unknown) (no (unknown) (unknown) intact (units (unkno wn) date) unknown) (unknown) (no (unknown) (unknown) iron) (units (unkno wn) date) tablet,delayed unknown) release (unknown) (no (unknown) (unknown) is afebrile he is (units (unknown) date) noted to be unknown) tachycardic, he has no shortness breath, he has no (unknown) (no (unknown) (unknown) latex [LATEX] (units ( unknown) date) Allergy Mild RASH unknown) Verified 02/08/22 08:38 (unknown) (no (unknown) (unknown) levalbuterol (units (u nknown) date) tartrate 45 1 puff unknown) inhalation Q4-6H PRN 06/22/18 (unknown) (no (unknown) (unknown) lisinopril 10 mg (units (unknown) date) tablet 10 mg PO unknown) DAILY 12/08/21 02/03/22 (unknown) (no (unknown) (unknown) lot of pain he (units (unknown) date) got 2 tablets of unknown) oxycodone and Tylenol at least 4 doses (unknown) (no (unknown) (unknown) mcg/actuation (units ( unknown) date) aerosol inhaler unknown) shortness of breath or wheezing (unknown) (no (unknown) (unknown) mcg/actuation (units ( unknown) date) nasal Allergy unknown) Symptoms ##0 (unknown) (no (unknown) (unknown) meclizine 25 mg (units (unknown) date) tablet 25 mg PO unknown) QID PRN vertigo #30 tabs 10/09/21 (unknown) (no (unknown) (unknown) membranes (units (unkn own) date) unknown) (unknown) (no (unknown) (unknown) metoprolol (units (unk nown) date) succinate 100 mg unknown) 100 mg PO DAILY 02/03/22 02/03/22 (unknown) (no (unknown) (unknown) montelukast 10 mg (units (unknown) date) tablet 10 mg PO unknown) DAILY 02/03/22 02/03/22 (unknown) (no (unknown) (unknown) morphine Allergy (units (unknown) date) Severe unknown) Hallucinating, Verified 02/08/22 08:38 (unknown) (no (unknown) (unknown) multivitamin (units (u nknown) date) (Multiple Vitamins unknown) 1 tab PO DAILY ##0 12/20/16 02/03/22 (unknown) (no (unknown) (unknown) oxycodone 5 mg (units (unknown) date) tablet 5 mg PO Q4H unknown) PRN pain, moderate #60 02/07/22 (unknown) (no (unknown) (unknown) pain (units (unkno wn) date) unknown) (unknown) (no (unknown) (unknown) pain. (units (unkno wn) date) unknown) (unknown) (no (unknown) (unknown) release 24 hr (units ( unknown) date) (Glucotrol XL) unknown) (unknown) (no (unknown) (unknown) spray,suspension (units (unknown) date) unknown) (unknown) (no (unknown) (unknown) substance use (units ( unknown) date) type: does not unknown) use (unknown) (no (unknown) (unknown) tablet 4-6) (units (un known) date) unknown) (unknown) (no (unknown) (unknown) tablet) (units (unkno wn) date) unknown) (unknown) (no (unknown) (unknown) tablet,extended (units (unknown) date) release 24 hr unknown) (unknown) (no (unknown) (unknown) through XII (units (unk nown) date) grossly intact. 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 and 3:00 a.m.. (unknown) (no (unknown) (unknown) trazodone 100 mg (units (unknown) date) tablet 400 tab PO unknown) BEDTIME 30 days #120 12/10/21 (unknown) (no (unknown) (unknown) up without any (units (unknown) date) significant pain unknown) (unknown) (no (unknown) (unknown) varenicline (units (un known) date) [VARENICLINE] unknown) AdvReac Severe Paranoia Verified 02/08/22 08:38 (unknown) (no (unknown) (unknown) was discharged (units (unknown) date) from the hospital unknown) yesterday after having lumbar fusion he during Result panel 124 (unknown) (no date) (unknown) (unknown) 1.6 mmol/L (unkn own) Result panel 125 (unknown) (no date) (unknown) (unknown) > 60 mL/min (unkn own) (unknown) (no date) (unknown) (unknown) 0.80 mg/dL (unkn own) (unknown) (no date) (unknown) (unknown) 1.0 mg/dL (unkn own) (unknown) (no date) (unknown) (unknown) 1.2 (units unknown) (unknown) (unknown) (no date) (unknown) (unknown) 102 mmol/L (unkn own) (unknown) (no date) (unknown) (unknown) 140 mmol/L (unkn own) (unknown) (no date) (unknown) (unknown) 15 mg/dL (unkn own) (unknown) (no date) (unknown) (unknown) 18.8 (units unknown) (unknown) (unknown) (no date) (unknown) (unknown) 182 mg/dL (unkn own) (unknown) (no date) (unknown) (unknown) 3.2 g/dL (unkn own) (unknown) (no date) (unknown) (unknown) 3.4 mmol/L (unkn own) (unknown) (no date) (unknown) (unknown) 3.9 g/dL (unkn own) (unknown) (no date) (unknown) (unknown) 31 mmol/L (unkn own) (unknown) (no date) (unknown) (unknown) 48 IU/L (unkn own) (unknown) (no date) (unknown) (unknown) 63 U/L (unkn own) (unknown) (no date) (unknown) (unknown) 7.1 g/dL (unkn own) (unknown) (no date) (unknown) (unknown) 76 IU/L (unkn own) (unknown) (no date) (unknown) (unknown) 8.7 mg/dL (unkn own) (unknown) (no date) (unknown) (unknown) 849 U/L (unkn own) Result panel 126 (unknown) (no date) (unknown) (unknown) Negative (units (unkn own) unknown) Result panel 127 (unknown) (no date) (unknown) (unknown) > 60 mL/min (unkn own) (unknown) (no date) (unknown) (unknown) < 0.012 ng/mL (unkn own) (unknown) (no date) (unknown) (unknown) 0.07 ng/mL (unkn own) (unknown) (no date) (unknown) (unknown) 0.3 % (unkn own) (unknown) (no date) (unknown) (unknown) 0.80 mg/dL (unkn own) (unknown) (no date) (unknown) (unknown) 1.0 mg/dL (unkn own) (unknown) (no date) (unknown) (unknown) 1.2 (units (unkn own) unknown) (unknown) (no date) (unknown) (unknown) 102 mmol/L (unkn own) (unknown) (no date) (unknown) (unknown) 140 mmol/L (unkn own) (unknown) (no date) (unknown) (unknown) 15 mg/dL (unkn own) (unknown) (no date) (unknown) (unknown) 18.8 (units (unkn own) unknown) (unknown) (no date) (unknown) (unknown) 182 mg/dL (unkn own) (unknown) (no date) (unknown) (unknown) 2.14 ng/mL (unkn own) (unknown) (no date) (unknown) (unknown) 3.2 g/dL (unkn own) (unknown) (no date) (unknown) (unknown) 3.4 mmol/L (unkn own) (unknown) (no date) (unknown) (unknown) 3.9 g/dL (unkn own) (unknown) (no date) (unknown) (unknown) 31 mmol/L (unkn own) (unknown) (no date) (unknown) (unknown) 48 IU/L (unkn own) (unknown) (no date) (unknown) (unknown) 63 U/L (unkn own) (unknown) (no date) (unknown) (unknown) 7.1 g/dL (unkn own) (unknown) (no date) (unknown) (unknown) 76 IU/L (unkn own) (unknown) (no date) (unknown) (unknown) 8.7 mg/dL (unkn own) (unknown) (no date) (unknown) (unknown) 849 U/L (unkn own) Result panel 128 (unknown) (no (unknown) (unknown) (no value) (units (unk nown) date) unknown) (unknown) (no (unknown) (unknown) Date of Service: (units (unknown) date) 02/08/22 unknown) (unknown) (no (unknown) (unknown) (no value) (units (unk nown) date) unknown) (unknown) (no (unknown) (unknown) 'He gets (units (unkno wn) date) unknown) (unknown) (no (unknown) (unknown) 0.2 mg PO BID (units ( unknown) date) unknown) (unknown) (no (unknown) (unknown) 02/08/22 08:53 (units (unknown) date) unknown) (unknown) (no (unknown) (unknown) 1 puff INHALATION (units (unknown) date) Q4-6H PRN (Reason: unknown) shortness of breath or wheezing) Qty: 15 (unknown) (no (unknown) (unknown) 1 spray (units (unkno wn) date) Intranasal DAILY unknown) PRN (Reason: Allergy Symptoms) Qty: 0 (unknown) (no (unknown) (unknown) 1 tab PO DAILY (units (unknown) date) Qty: 0 unknown) (unknown) (no (unknown) (unknown) 1-2 tabs q 4 (units (u nknown) date) hours PRN moderate unknown) to severe pain (unknown) (no (unknown) (unknown) 10 mg PO DAILY (units (unknown) date) unknown) (unknown) (no (unknown) (unknown) 100 mg PO BID PRN (units (unknown) date) (Reason: unknown) constipation) Qty: 60 2RF (unknown) (no (unknown) (unknown) 100 mg PO DAILY (units (unknown) date) unknown) (unknown) (no (unknown) (unknown) 2 tab PO Q4H PRN (units (unknown) date) (Reason: Pain unknown) (Scale Score 4-6)) (unknown) (no (unknown) (unknown) 2.5 mg PO DAILY (units (unknown) date) unknown) (unknown) (no (unknown) (unknown) 25 mg PO QID PRN (units (unknown) date) (Reason: vertigo) unknown) Qty: 30 0RF (unknown) (no (unknown) (unknown) 325 mg PO DAILY (units (unknown) date) unknown) (unknown) (no (unknown) (unknown) 40 mg PO DAILY (units (unknown) date) unknown) (unknown) (no (unknown) (unknown) 400 tab PO (units (unk nown) date) BEDTIME 30 Days unknown) Qty: 120 0RF (unknown) (no (unknown) (unknown) 5 mg PO Q4H PRN (units (unknown) date) (Reason: pain, unknown) moderate) Qty: 60 0RF (unknown) (no (unknown) (unknown) ANXIETY, (units (unkno wn) date) unknown) (unknown) (no (unknown) (unknown) Allergies (units (unkn own) date) unknown) (unknown) (no (unknown) (unknown) DIZZINESS (units (unkn own) date) unknown) (unknown) (no (unknown) (unknown) ED Orders (units (unkn own) date) unknown) (unknown) (no (unknown) (unknown) EXPOSURE (units (unkno wn) date) unknown) (unknown) (no (unknown) (unknown) Emergency Report (units (unknown) date) unknown) (unknown) (no (unknown) (unknown) Home Medications (units (unknown) date) unknown) (unknown) (no (unknown) (unknown) [facility] (units (unknown) date) [address] [place] [address] unknown) [place] [address] (unknown) (no (unknown) (unknown) JERKING, (units (unkno wn) date) unknown) (unknown) (no (unknown) (unknown) Lab Results (units (un known) date) unknown) (unknown) (no (unknown) (unknown) Label Comments: (units (unknown) date) unknown) (unknown) (no (unknown) (unknown) MINUTES (units (unkno wn) date) unknown) (unknown) (no (unknown) (unknown) NAUSEA W/I (units (unk nown) date) unknown) (unknown) (no (unknown) (unknown) Previous Rx's (units ( unknown) date) unknown) (unknown) (no (unknown) (unknown) Rx Instructions: (units (unknown) date) unknown) (unknown) (no (unknown) (unknown) Vital Signs - 8 (units (unknown) date) hr unknown) (unknown) (no (unknown) (unknown) W/EXTENDED (units (unk nown) date) unknown) (unknown) (no (unknown) (unknown) mind' (units (unkno wn) date) unknown) (unknown) (no (unknown) (unknown) out of his (units (unk nown) date) unknown) (unknown) (no (unknown) (unknown) take 1 tablet by (units (unknown) date) mouth once daily unknown) (unknown) (no (unknown) (unknown) (no value) (units (unk nown) date) unknown) (unknown) (no (unknown) (unknown) 02/08/22 02/08/22 (units (unknown) date) 02/08/22 unknown) Range/Units (unknown) (no (unknown) (unknown) 02/08/22 02/08/22 (units (unknown) date) Range/Units unknown) (unknown) (no (unknown) (unknown) 08:53 08:53 (units (un known) date) unknown) (unknown) (no (unknown) (unknown) 08:53 08:53 08:53 (units (unknown) date) unknown) (unknown) (no (unknown) (unknown) Zyrtec 10 mg (units (u nknown) date) Capsule unknown) (unknown) (no (unknown) (unknown) acetaminophen-cod (units (unknown) date) eine 300-30 mg unknown) tablet (unknown) (no (unknown) (unknown) clonidine HCl 0.1 (units (unknown) date) mg tablet unknown) (unknown) (no (unknown) (unknown) docusate sodium (units (unknown) date) 100 mg Capsule unknown) (unknown) (no (unknown) (unknown) ferrous sulfate (units (unknown) date) 325 mg (65 mg unknown) iron) tablet,delayed release (DR/EC) (unknown) (no (unknown) (unknown) fluticasone (units (un known) date) propionate 16 GM unknown) spray,suspension (unknown) (no (unknown) (unknown) furosemide 40 mg (units (unknown) date) tablet unknown) (unknown) (no (unknown) (unknown) glipizide (units (unkn own) date) [Glucotrol XL] 2.5 unknown) mg tablet extended release 24 hr (unknown) (no (unknown) (unknown) levalbuterol (units (u nknown) date) tartrate [Xopenex unknown) HFA] 45 mcg/actuation HFA aerosol inhaler (unknown) (no (unknown) (unknown) lisinopril 10 mg (units (unknown) date) tablet unknown) (unknown) (no (unknown) (unknown) meclizine 25 mg (units (unknown) date) tablet unknown) (unknown) (no (unknown) (unknown) metoprolol (units (unk nown) date) succinate 100 mg unknown) Tablet Extended Release 24 Hr (unknown) (no (unknown) (unknown) montelukast 10 mg (units (unknown) date) Tablet unknown) (unknown) (no (unknown) (unknown) multivitamin (units (u nknown) date) [Multiple unknown) Vitamins] 1 EACH tablet (unknown) (no (unknown) (unknown) oxycodone 5 mg (units (unknown) date) tablet unknown) (unknown) (no (unknown) (unknown) trazodone 100 mg (units (unknown) date) tablet unknown) (unknown) (no (unknown) (unknown) 02/08/22 (units (unkno wn) date) unknown) (unknown) (no (unknown) (unknown) Medication (units (unk nown) date) Instructions unknown) Recorded (unknown) (no (unknown) (unknown) Medication (units (unk nown) date) Instructions unknown) Recorded Confirmed (unknown) (no (unknown) (unknown) caps (units (unkno wn) date) unknown) (unknown) (no (unknown) (unknown) tabs (units (unkno wn) date) unknown) (unknown) (no (unknown) (unknown) (Xopenex HFA) #15 (units (unknown) date) grams unknown) (unknown) (no (unknown) (unknown) [id number] (units (unkn own) date) unknown) (unknown) (no (unknown) (unknown) 02/03/22 (units (unkno wn) date) unknown) (unknown) (no (unknown) (unknown) 02/08/22 08:53 (units (unknown) date) unknown) (unknown) (no (unknown) (unknown) 02/08/22 08:54 (units (unknown) date) unknown) (unknown) (no (unknown) (unknown) 02/08/22 09:30 (units (unknown) date) unknown) (unknown) (no (unknown) (unknown) 08:38 (units (unkno wn) date) unknown) (unknown) (no (unknown) (unknown) 08:39 (units (unkno wn) date) unknown) (unknown) (no (unknown) (unknown) 0RF (units (unkno wn) date) unknown) (unknown) (no (unknown) (unknown) 12 point review (units (unknown) date) of systems is unknown) negative except for those stated above and HPI (unknown) (no (unknown) (unknown) ABDOMEN: Soft, (units (unknown) date) nontender. unknown) Normoactive bowel sounds all 4 quadrants. No (unknown) (no (unknown) (unknown) ALT (<50) (units (u nknown) date) IU/L unknown) (unknown) (no (unknown) (unknown) ALT 48 (<50) (units (unknown) date) IU/L unknown) (unknown) (no (unknown) (unknown) ANTIBIOTICS)] (units ( unknown) date) unknown) (unknown) (no (unknown) (unknown) AST (17-59) (units (unknown) date) IU/L unknown) (unknown) (no (unknown) (unknown) AST 76 H (units (unk nown) date) (17-59) IU/L unknown) (unknown) (no (unknown) (unknown) Achalasia (units (unkn own) date) unknown) (unknown) (no (unknown) (unknown) Age/Sex: 76 / M (units (unknown) date) unknown) (unknown) (no (unknown) (unknown) Albumin (units (unkno wn) date) (3.5-5.0) g/dL unknown) (unknown) (no (unknown) (unknown) Albumin 3.9 (units ( unknown) date) (3.5-5.0) g/dL unknown) (unknown) (no (unknown) (unknown) Albumin/Globulin (units (unknown) date) Ratio (1.0-2.8) unknown) (unknown) (no (unknown) (unknown) Albumin/Globulin (units (unknown) date) Ratio 1.2 unknown) (1.0-2.8) (unknown) (no (unknown) (unknown) Alkaline (units (unkno wn) date) Phosphatase unknown) (38-126) U/L (unknown) (no (unknown) (unknown) Alkaline (units (unkno wn) date) Phosphatase 63 unknown) (38-126) U/L (unknown) (no (unknown) (unknown) Allergy/AdvReac (units (unknown) date) Type Severity unknown) Reaction Status Date / Time (unknown) (no (unknown) (unknown) Anginal pain (units (u nknown) date) unknown) (unknown) (no (unknown) (unknown) Antibiotics) (units (u nknown) date) unknown) (unknown) (no (unknown) (unknown) Asthma (units (unkno wn) date) unknown) (unknown) (no (unknown) (unknown) Atrial (units (unkno wn) date) fibrillation unknown) (unknown) (no (unknown) (unknown) BUN (9-20) (units ( unknown) date) mg/dL unknown) (unknown) (no (unknown) (unknown) BUN 15 (9-20) (units (unknown) date) mg/dL unknown) (unknown) (no (unknown) (unknown) BUN/Creatinine (units (unknown) date) Ratio (6-22) unknown) (unknown) (no (unknown) (unknown) BUN/Creatinine (units (unknown) date) Ratio 18.8 unknown) (6-22) (unknown) (no (unknown) (unknown) Baso # (Auto) (units ( unknown) date) (0-100) /uL unknown) (unknown) (no (unknown) (unknown) Baso # (Auto) 0 (units (unknown) date) (0-100) /uL unknown) (unknown) (no (unknown) (unknown) Baso % (Auto) (units ( unknown) date) (0-2) % unknown) (unknown) (no (unknown) (unknown) Baso % (Auto) (units ( unknown) date) 0.7 (0-2) % unknown) (unknown) (no (unknown) (unknown) Blood Culture (units ( unknown) date) Stat unknown) (unknown) (no (unknown) (unknown) Blood Pressure (units (unknown) date) 149/71 H 02/08/22 unknown) 08:39 (unknown) (no (unknown) (unknown) Blood Pressure (units (unknown) date) 149/71 H unknown) (unknown) (no (unknown) (unknown) CARDIOVASCULAR: (units (unknown) date) Denies chest pain, unknown) palpitations, orthopnea, edema (unknown) (no (unknown) (unknown) CARDIOVASCULAR: (units (unknown) date) Regular rate and unknown) rhythm without murmurs, rubs or gallops. (unknown) (no (unknown) (unknown) CBC Auto Diff (units ( unknown) date) [Complete Blood unknown) Count AUTO DIFF] Stat (unknown) (no (unknown) (unknown) CK-MB (CK-2) (units (u nknown) date) (<2.37) ng/mL unknown) (unknown) (no (unknown) (unknown) CK-MB (CK-2) (units (u nknown) date) 2.14 (<2.37) unknown) ng/mL (unknown) (no (unknown) (unknown) CK-MB (CK-2) Rel (units (unknown) date) Index (1.5-5.0) unknown) % (unknown) (no (unknown) (unknown) CK-MB (CK-2) Rel (units (unknown) date) Index 0.3 L unknown) (1.5-5.0) % (unknown) (no (unknown) (unknown) CMP (units (unkno wn) date) [Comprehensive unknown) Metabolic Panel] Stat (unknown) (no (unknown) (unknown) COPD (chronic (units ( unknown) date) obstructive unknown) pulmonary disease) (unknown) (no (unknown) (unknown) COVID19 -Nasal (units (unknown) date) RAPID/Pre-Proc unknown) Stat (unknown) (no (unknown) (unknown) Calcium (units (unkno wn) date) (8.4-10.2) mg/dL unknown) (unknown) (no (unknown) (unknown) Calcium 8.7 (units ( unknown) date) (8.4-10.2) mg/dL unknown) (unknown) (no (unknown) (unknown) Carbon Dioxide (units (unknown) date) (22-32) mmol/L unknown) (unknown) (no (unknown) (unknown) Carbon Dioxide (units (unknown) date) 31 (22-32) unknown) mmol/L (unknown) (no (unknown) (unknown) Cervical spinal (units (unknown) date) stenosis unknown) (unknown) (no (unknown) (unknown) Chief complaint: (units (unknown) date) Weakness unknown) (unknown) (no (unknown) (unknown) Chloride (units (o wn) date) (98-107) mmol/L unknown) (unknown) (no (unknown) (unknown) Chloride 102 (units (unknown) date) (98-107) mmol/L unknown) (unknown) (no (unknown) (unknown) Chronic (units (o wn) date) obstructive unknown) pulmonary disease (10/22/16) (unknown) (no (unknown) (unknown) Coronary artery (units (unknown) date) disease unknown) (unknown) (no (unknown) (unknown) Course (units (unkno wn) date) unknown) (unknown) (no (unknown) (unknown) Creatinine (units (unk nown) date) (0.66-1.25) mg/dL unknown) (unknown) (no (unknown) (unknown) Creatinine 0.80 (units (unknown) date) (0.66-1.25) unknown) mg/dL (unknown) (no (unknown) (unknown) : 1945 (units (unknown) date) Acct:[id number] unknown) (unknown) (no (unknown) (unknown) Kimmy Gomez, (units (unknown) date) [Primary Care unknown) Provider] - (unknown) (no (unknown) (unknown) Departure (units (unkn own) date) unknown) (unknown) (no (unknown) (unknown) Discharge Plan (units (unknown) date) unknown) (unknown) (no (unknown) (unknown) EKG-12 Lead Stat (units (unknown) date) unknown) (unknown) (no (unknown) (unknown) ER Physician: (units ( unknown) date) Bridgett Fletcher unknown) D.O. (unknown) (no (unknown) (unknown) EXTREMITIES: (units (u nknown) date) Normal range of unknown) motion, no clubbing or edema. Neurovascularly (unknown) (no (unknown) (unknown) Eos # (Auto) (units (u nknown) date) (0-450) /uL unknown) (unknown) (no (unknown) (unknown) Eos # (Auto) 100 (units (unknown) date) (0-450) /uL unknown) (unknown) (no (unknown) (unknown) Eos % (Auto) (units (u nknown) date) (2-4) % unknown) (unknown) (no (unknown) (unknown) Eos % (Auto) 2.1 (units (unknown) date) (2-4) % unknown) (unknown) (no (unknown) (unknown) Estimated GFR (units ( unknown) date) (>60) mL/min unknown) (unknown) (no (unknown) (unknown) Estimated GFR > (units (unknown) date) 60 (>60) mL/min unknown) (unknown) (no (unknown) (unknown) Exam (units (unkno wn) date) unknown) (unknown) (no (unknown) (unknown) Family History (units (unknown) date) (Reviewed 02/07/22 unknown) @ 11:16 by [facility]) (unknown) (no (unknown) (unknown) Father (units (unkno wn) date) Hypertension unknown) (unknown) (no (unknown) (unknown) GASTROINTESTINAL: (units (unknown) date) Denies nausea, unknown) vomiting, abdominal pain, diarrhea, (unknown) (no (unknown) (unknown) GENERAL: Alert (units (unknown) date) slightly confused unknown) 76-year-old male and in no acute distress. (unknown) (no (unknown) (unknown) GENERAL: Denies (units (unknown) date) chills, fatigue, unknown) malaise, fever, sweats, travel (unknown) (no (unknown) (unknown) : Denies (units (unkn own) date) dysuria, unknown) frequency, incontinence, hematuria, urinary retention, flank (unknown) (no (unknown) (unknown) General (units (unkno wn) date) unknown) (unknown) (no (unknown) (unknown) GenericComposite[ (units (unknown) date) Plt Count unknown) (150-400) X10^3/uL ] (unknown) (no (unknown) (unknown) GenericComposite[ (units (unknown) date) Plt Count 319 unknown) (150-400) X10^3/uL ] (unknown) (no (unknown) (unknown) GenericComposite[ (units (unknown) date) RBC (4.5-5.9) unknown) X10^6/uL ] (unknown) (no (unknown) (unknown) GenericComposite[ (units (unknown) date) RBC 3.52 L unknown) (4.5-5.9) X10^6/uL ] (unknown) (no (unknown) (unknown) GenericComposite[ (units (unknown) date) WBC (4.5-11.0) unknown) X10^3/uL ] (unknown) (no (unknown) (unknown) GenericComposite[ (units (unknown) date) WBC 5.9 unknown) (4.5-11.0) X10^3/uL ] (unknown) (no (unknown) (unknown) Globulin (units (unkno wn) date) (1.7-4.1) g/dL unknown) (unknown) (no (unknown) (unknown) Globulin 3.2 (units (unknown) date) (1.7-4.1) g/dL unknown) (unknown) (no (unknown) (unknown) Glucose (units (unkno wn) date) (80-110) mg/dL unknown) (unknown) (no (unknown) (unknown) Glucose 182 H (units (unknown) date) (80-110) mg/dL unknown) (unknown) (no (unknown) (unknown) H/O arthroscopic (units (unknown) date) knee surgery unknown) (11/14/17) (unknown) (no (unknown) (unknown) HEENT: Denies (units ( unknown) date) sinus pain, ear unknown) pain, sore throat, difficulty swallowing, neck (unknown) (no (unknown) (unknown) HEENT: Head (units (un known) date) atraumatic,EOMI, unknown) pupils reactive, face symmetric, moist mucous (unknown) (no (unknown) (unknown) HPI - Weakness (units (unknown) date) unknown) (unknown) (no (unknown) (unknown) HPI Narrative: (units (unknown) date) unknown) (unknown) (no (unknown) (unknown) Hct (41-53) % (units (unknown) date) unknown) (unknown) (no (unknown) (unknown) Hct 32.7 L (units (un known) date) (41-53) % unknown) (unknown) (no (unknown) (unknown) He is having some (units (unknown) date) mild pain now but unknown) seems to be definitely more appropriate he (unknown) (no (unknown) (unknown) Hgb (units (unkno wn) date) (13.5-17.5) g/dL unknown) (unknown) (no (unknown) (unknown) Hgb 11.3 L (units (un known) date) (13.5-17.5) g/dL unknown) (unknown) (no (unknown) (unknown) History of (units (unk nown) date) Present Illness unknown) (unknown) (no (unknown) (unknown) History of aortic (units (unknown) date) dissection unknown) () (unknown) (no (unknown) (unknown) History of (units (unk nown) date) arthroplasty of unknown) left knee (05/24/19) (unknown) (no (unknown) (unknown) History of (units (unk nown) date) arthroplasty of unknown) right knee (unknown) (no (unknown) (unknown) History of (units (unk nown) date) bilateral total unknown) hip arthroplasty (unknown) (no (unknown) (unknown) History of (units (unk nown) date) cardiac cath unknown) () (unknown) (no (unknown) (unknown) History of (units (unk nown) date) esophageal surgery unknown) (unknown) (no (unknown) (unknown) History of (units (unk nown) date) incision and unknown) drainage (-2016) (unknown) (no (unknown) (unknown) History of prior (units (unknown) date) ablation treatment unknown) () (unknown) (no (unknown) (unknown) History of (units (unk nown) date) surgery unknown) (unknown) (no (unknown) (unknown) Hx of (units (unkno wn) date) cholecystectomy unknown) (unknown) (no (unknown) (unknown) Hx of hernia (units (u nknown) date) repair unknown) (unknown) (no (unknown) (unknown) Hx of sinus (units (un known) date) surgery unknown) (unknown) (no (unknown) (unknown) Hypertension (units (u nknown) date) unknown) (unknown) (no (unknown) (unknown) INHIBITOR] (units (unk nown) date) unknown) (unknown) (no (unknown) (unknown) Inhibitor (units (unkn own) date) MUSCLES unknown) (unknown) (no (unknown) (unknown) Initial Vital (units ( unknown) date) Signs unknown) (unknown) (no (unknown) (unknown) Initial Vital (units ( unknown) date) Signs: unknown) (unknown) (no (unknown) (unknown) Ischemic (units (unkno wn) date) cardiomyopathy unknown) (unknown) (no (unknown) (unknown) Lab Data (units (unkno wn) date) unknown) (unknown) (no (unknown) (unknown) Labs: (units (unkno wn) date) unknown) (unknown) (no (unknown) (unknown) Lactate (units (unkno wn) date) (0.7-2.1) mmol/L unknown) (unknown) (no (unknown) (unknown) Lactate 1.6 (units (unknown) date) (0.7-2.1) mmol/L unknown) (unknown) (no (unknown) (unknown) Lactate (Lactic (units (unknown) date) Acid) Stat unknown) (unknown) (no (unknown) (unknown) Lymph # (Auto) (units (unknown) date) (2709-2110) /uL unknown) (unknown) (no (unknown) (unknown) Lymph # (Auto) (units (unknown) date) 700 L unknown) (4436-2999) /uL (unknown) (no (unknown) (unknown) Lymph % (Auto) (units (unknown) date) (25-40) % unknown) (unknown) (no (unknown) (unknown) Lymph % (Auto) (units (unknown) date) 11.7 L (25-40) unknown) % (unknown) (no (unknown) (unknown) MCH (26-34) (units (unknown) date) PG unknown) (unknown) (no (unknown) (unknown) MCH 32.0 (units (unkn own) date) (26-34) PG unknown) (unknown) (no (unknown) (unknown) MCHC (30-36) (units (unknown) date) % unknown) (unknown) (no (unknown) (unknown) MCHC 34.5 (units (unk nown) date) (30-36) % unknown) (unknown) (no (unknown) (unknown) MCV (80-100) (units (unknown) date) fL unknown) (unknown) (no (unknown) (unknown) MCV 92.8 (units (unkn own) date) (80-100) fL unknown) (unknown) (no (unknown) (unknown) MDM - Weakness (units (unknown) date) unknown) (unknown) (no (unknown) (unknown) MUSCULOSKELETAL: (units (unknown) date) See HPI unknown) (unknown) (no (unknown) (unknown) Medical History (units (unknown) date) (Reviewed 02/07/22 unknown) @ 11:16 by [facility]) (unknown) (no (unknown) (unknown) Mode of arrival: (units (unknown) date) Ambulatory unknown) (unknown) (no (unknown) (unknown) [place] # (Auto) (units ( unknown) date) (0-900) /uL unknown) (unknown) (no (unknown) (unknown) [place] # (Auto) (units ( unknown) date) 800 (0-900) unknown) /uL (unknown) (no (unknown) (unknown) [place] % (Auto) (units ( unknown) date) (3-14) % unknown) (unknown) (no (unknown) (unknown) [place] % (Auto) (units ( unknown) date) 14.4 H (3-14) unknown) % (unknown) (no (unknown) (unknown) Mother (units (unknown) date) Stroke unknown) (unknown) (no (unknown) (unknown) NEUROLOGIC: (units (un known) date) Denies weakness, unknown) dizziness, headache, numbness, change in speech, (unknown) (no (unknown) (unknown) NEUROLOGICAL: (units ( unknown) date) Alert and oriented unknown) x2.Normal gait and speech. Cranial nerves II (unknown) (no (unknown) (unknown) Narcotic (units (unkno wn) date) dependence unknown) (unknown) (no (unknown) (unknown) Narrative: (units (unk nown) date) unknown) (unknown) (no (unknown) (unknown) Neck pain, (units (unk nown) date) chronic unknown) (unknown) (no (unknown) (unknown) Neut # (Auto) (units ( unknown) date) (7289-3022) /uL unknown) (unknown) (no (unknown) (unknown) Neut # (Auto) (units ( unknown) date) 4200 unknown) (6060-6011) /uL (unknown) (no (unknown) (unknown) Neut % (Auto) (units ( unknown) date) (50-75) % unknown) (unknown) (no (unknown) (unknown) Neut % (Auto) (units ( unknown) date) 71.1 (50-75) % unknown) (unknown) (no (unknown) (unknown) No Action (units (unkn own) date) unknown) (unknown) (no (unknown) (unknown) Ordered: (units (unkno wn) date) unknown) (unknown) (no (unknown) (unknown) Orders (units (unkno wn) date) unknown) (unknown) (no (unknown) (unknown) Oxygen Delivery (units (unknown) date) Method 02/08/22 unknown) 08:39 (unknown) (no (unknown) (unknown) Oxygen Delivery (units (unknown) date) Method Room Air unknown) (unknown) (no (unknown) (unknown) PSYCHIATRIC: No (units (unknown) date) concerning unknown) psychosocial issues. (unknown) (no (unknown) (unknown) Patient History (units (unknown) date) unknown) (unknown) (no (unknown) (unknown) Patient is a (units (u nknown) date) 76-year-old male unknown) with history of COPD, chronic AFib, not (unknown) (no (unknown) (unknown) Patient: (units (unkno wn) date) Dominic Viveros unknown) MR#: M (unknown) (no (unknown) (unknown) Potassium (units (unkn own) date) (3.4-5.1) mmol/L unknown) (unknown) (no (unknown) (unknown) Potassium 3.4 (units (unknown) date) (3.4-5.1) mmol/L unknown) (unknown) (no (unknown) (unknown) Prescriptions: (units (unknown) date) unknown) (unknown) (no (unknown) (unknown) Procalcitonin (units ( unknown) date) (<0.5) ng/mL unknown) (unknown) (no (unknown) (unknown) Procalcitonin (units ( unknown) date) 0.07 (<0.5) unknown) ng/mL (unknown) (no (unknown) (unknown) Procalcitonin (units ( unknown) date) Stat unknown) (unknown) (no (unknown) (unknown) Pulse Oximetry (units (unknown) date) 97 02/08/22 unknown) 08:39 (unknown) (no (unknown) (unknown) Pulse Oximetry 97 (units (unknown) date) unknown) (unknown) (no (unknown) (unknown) Pulse Rate 117 H (units (unknown) date) 02/08/22 08:39 unknown) (unknown) (no (unknown) (unknown) Pulse Rate 117 H (units (unknown) date) unknown) (unknown) (no (unknown) (unknown) RDW (units (unkno wn) date) (11.6-14.8) % unknown) (unknown) (no (unknown) (unknown) RDW 12.9 (units (unkn own) date) (11.6-14.8) % unknown) (unknown) (no (unknown) (unknown) RESPIRATORY: (units (u nknown) date) Breath sounds unknown) equal bilaterally, no wheezes rales or rhonchi. (unknown) (no (unknown) (unknown) RESPIRATORY: (units (u nknown) date) Denies dyspnea, unknown) cough, wheezing, hemoptysis, sputum. (unknown) (no (unknown) (unknown) Referrals: (units (unk nown) date) unknown) (unknown) (no (unknown) (unknown) Related Data (units (u nknown) date) unknown) (unknown) (no (unknown) (unknown) Respiratory Rate (units (unknown) date) 14 02/08/22 unknown) 08:39 (unknown) (no (unknown) (unknown) Respiratory Rate (units (unknown) date) 14 unknown) (unknown) (no (unknown) (unknown) Result diagrams: (units (unknown) date) unknown) (unknown) (no (unknown) (unknown) Review of Systems (units (unknown) date) unknown) (unknown) (no (unknown) (unknown) S/P CABG x 3 (units (u nknown) date) () unknown) (unknown) (no (unknown) (unknown) S/P cervical (units (u nknown) date) spinal fusion unknown) (unknown) (no (unknown) (unknown) S/P lumbar fusion (units (unknown) date) unknown) (unknown) (no (unknown) (unknown) SARS-CoV-2 (PCR) (units (unknown) date) (Negative) unknown) (unknown) (no (unknown) (unknown) SARS-CoV-2 (PCR) (units (unknown) date) Negative unknown) (Negative) (unknown) (no (unknown) (unknown) SKIN: No rash, no (units (unknown) date) erythema, no unknown) pruritus (unknown) (no (unknown) (unknown) SKIN: Warm, dry, (units (unknown) date) no laceration, no unknown) petechiae, no rashes or lesions. (unknown) (no (unknown) (unknown) Signed By: (units (unk nown) date) unknown) (unknown) (no (unknown) (unknown) Smoking Status: (units (unknown) date) Former smoker unknown) (unknown) (no (unknown) (unknown) Smoking Status: (units (unknown) date) Former smoker unknown) (unknown) (no (unknown) (unknown) Social History (units (unknown) date) (Reviewed 02/07/22 unknown) @ 11:16 by [facility]) (unknown) (no (unknown) (unknown) Sodium (units (unkno wn) date) (137-145) mmol/L unknown) (unknown) (no (unknown) (unknown) Sodium 140 (units (u nknown) date) (137-145) mmol/L unknown) (unknown) (no (unknown) (unknown) Source: patient (units (unknown) date) unknown) (unknown) (no (unknown) (unknown) Stated complaint: (units (unknown) date) 'NEEDS MORE CARE' unknown) DISCHARGED FROM 02/07 (unknown) (no (unknown) (unknown) [id number] (units (unknown) date) Reductase AdvReac unknown) Mild WEAK Verified 02/08/22 08:38 (unknown) (no (unknown) (unknown) Substance Use (units ( unknown) date) Type: does not use unknown) (unknown) (no (unknown) (unknown) Sulfa (units (unkno wn) date) (Sulfonamide unknown) Allergy Mild RASH Verified 02/08/22 08:38 (unknown) (no (unknown) (unknown) Surgical History (units (unknown) date) (Reviewed 02/07/22 unknown) @ 11:16 by [facility]) (unknown) (no (unknown) (unknown) Temperature 98.9 (units (unknown) date) F 02/08/22 08:39 unknown) (unknown) (no (unknown) (unknown) Temperature 98.9 (units (unknown) date) F unknown) (unknown) (no (unknown) (unknown) Time Seen by (units (u nknown) date) Provider: 02/08/22 unknown) 08:41 (unknown) (no (unknown) (unknown) Total Bilirubin (units (unknown) date) (0.2-1.3) mg/dL unknown) (unknown) (no (unknown) (unknown) Total Bilirubin (units (unknown) date) 1.0 (0.2-1.3) unknown) mg/dL (unknown) (no (unknown) (unknown) Total Creatine (units (unknown) date) Kinase (55-170) unknown) U/L (unknown) (no (unknown) (unknown) Total Creatine (units (unknown) date) Kinase 849 H unknown) (55-170) U/L (unknown) (no (unknown) (unknown) Total Protein (units ( unknown) date) (6.3-8.2) g/dL unknown) (unknown) (no (unknown) (unknown) Total Protein (units ( unknown) date) 7.1 (6.3-8.2) unknown) g/dL (unknown) (no (unknown) (unknown) Troponin + CK (units ( unknown) date) Cardiac Panel Stat unknown) (unknown) (no (unknown) (unknown) Troponin I (units (unk nown) date) (0.01-0.034) unknown) ng/mL (unknown) (no (unknown) (unknown) Troponin I < (units (unknown) date) 0.012 unknown) (0.01-0.034) ng/mL (unknown) (no (unknown) (unknown) UA Complete (units (un known) date) [Urinalysis and unknown) Microscopic] Stat (unknown) (no (unknown) (unknown) Ventricular (units (un known) date) bigeminy unknown) (unknown) (no (unknown) (unknown) Vital Signs (units (un known) date) unknown) (unknown) (no (unknown) (unknown) Vital signs: (units (u nknown) date) unknown) (unknown) (no (unknown) (unknown) XR chest 1V Stat (units (unknown) date) unknown) (unknown) (no (unknown) (unknown) [Embedded Image (units (unknown) date) Not Available] unknown) (unknown) (no (unknown) (unknown) [[id number] (units (unknown) date) REDUCTASE unknown) (unknown) (no (unknown) (unknown) [SULFA (units (unkno wn) date) (SULFONAMIDE unknown) (unknown) (no (unknown) (unknown) acetaminophen 300 (units (unknown) date) mg-codeine 30 mg 2 unknown) tab PO Q4H PRN Pain (Scale Score 02/03/22 (unknown) (no (unknown) (unknown) alcohol intake (units (unknown) date) frequency: 0-2 unknown) drinks per day (unknown) (no (unknown) (unknown) alcohol intake: (units (unknown) date) current unknown) (unknown) (no (unknown) (unknown) anticoagulated, (units (unknown) date) ischemic unknown) cardiomyopathy, history of mesenteric ischemic, (unknown) (no (unknown) (unknown) buprenorphine (units ( unknown) date) [BUPRENORPHINE] unknown) AdvReac Mild NAUSEA, Verified 02/08/22 08:38 (unknown) (no (unknown) (unknown) celecoxib (units (unkn own) date) [CELECOXIB] unknown) Allergy Mild SWELLING Verified 02/08/22 08:38 (unknown) (no (unknown) (unknown) cetirizine 10 mg (units (unknown) date) capsule (Zyrtec) unknown) 10 mg PO DAILY 05/22/19 02/03/22 (unknown) (no (unknown) (unknown) chest pain he has (units (unknown) date) no abdominal pain unknown) nausea or vomiting. (unknown) (no (unknown) (unknown) clonidine HCl 0.1 (units (unknown) date) mg tablet 0.2 mg unknown) PO BID 12/08/21 02/03/22 (unknown) (no (unknown) (unknown) confusion (units (unkn own) date) unknown) (unknown) (no (unknown) (unknown) constipation, (units ( unknown) date) melena. unknown) (unknown) (no (unknown) (unknown) diazepam [From (units (unknown) date) Valium] Allergy unknown) Severe Confusion Verified 02/08/22 08:38 (unknown) (no (unknown) (unknown) docusate sodium (units (unknown) date) 100 mg capsule 100 unknown) mg PO BID PRN constipation #60 02/07/22 (unknown) (no (unknown) (unknown) drinking very (units ( unknown) date) much. She states unknown) last night he was very confused seem to be in (unknown) (no (unknown) (unknown) fentanyl AdvReac (units (unknown) date) Severe Confusion unknown) Verified 02/08/22 08:39 (unknown) (no (unknown) (unknown) ferrous sulfate (units (unknown) date) 325 mg (65 mg 325 unknown) mg PO DAILY 10/19/19 02/03/22 (unknown) (no (unknown) (unknown) fluticasone (units (un known) date) propionate 50 1 unknown) spray intranasal DAILY PRN 11/02/17 02/03/22 (unknown) (no (unknown) (unknown) furosemide 40 mg (units (unknown) date) tablet 40 mg PO unknown) DAILY 02/03/22 02/03/22 (unknown) (no (unknown) (unknown) glipizide 2.5 mg (units (unknown) date) tablet, extended unknown) 2.5 mg PO DAILY 10/08/21 02/03/22 (unknown) (no (unknown) (unknown) guarding or (units (un known) date) rebound. unknown) (unknown) (no (unknown) (unknown) he does have a (units (unknown) date) history of alcohol unknown) use states that he really that when (unknown) (no (unknown) (unknown) his stay he had (units (unknown) date) some encephalitis unknown) thought to be due from polypharmacy, although (unknown) (no (unknown) (unknown) household (units (unkn own) date) members: spouse unknown) (unknown) (no (unknown) (unknown) hydromorphone (units ( unknown) date) [From Dilaudid] unknown) Allergy Severe Hallucinating, Verified 02/08/22 (unknown) (no (unknown) (unknown) hyoscyamine (units (un known) date) [HYOSCYAMINE] unknown) AdvReac Mild LEG Verified 02/08/22 08:38 (unknown) (no (unknown) (unknown) hypertension with (units (unknown) date) recent lumbar unknown) fusion, who presents today with confusion. He (unknown) (no (unknown) (unknown) intact (units (unkno wn) date) unknown) (unknown) (no (unknown) (unknown) iron) (units (unkno wn) date) tablet,delayed unknown) release (unknown) (no (unknown) (unknown) is afebrile he is (units (unknown) date) noted to be unknown) tachycardic, he has no shortness breath, he has no (unknown) (no (unknown) (unknown) latex [LATEX] (units ( unknown) date) Allergy Mild RASH unknown) Verified 02/08/22 08:38 (unknown) (no (unknown) (unknown) levalbuterol (units (u nknown) date) tartrate 45 1 puff unknown) inhalation Q4-6H PRN 06/22/18 (unknown) (no (unknown) (unknown) lisinopril 10 mg (units (unknown) date) tablet 10 mg PO unknown) DAILY 12/08/21 02/03/22 (unknown) (no (unknown) (unknown) lot of pain he (units (unknown) date) got 2 tablets of unknown) oxycodone and Tylenol at least 4 doses (unknown) (no (unknown) (unknown) mcg/actuation (units ( unknown) date) aerosol inhaler unknown) shortness of breath or wheezing (unknown) (no (unknown) (unknown) mcg/actuation (units ( unknown) date) nasal Allergy unknown) Symptoms ##0 (unknown) (no (unknown) (unknown) meclizine 25 mg (units (unknown) date) tablet 25 mg PO unknown) QID PRN vertigo #30 tabs 10/09/21 (unknown) (no (unknown) (unknown) membranes (units (unkn own) date) unknown) (unknown) (no (unknown) (unknown) metoprolol (units (unk nown) date) succinate 100 mg unknown) 100 mg PO DAILY 02/03/22 02/03/22 (unknown) (no (unknown) (unknown) montelukast 10 mg (units (unknown) date) tablet 10 mg PO unknown) DAILY 02/03/22 02/03/22 (unknown) (no (unknown) (unknown) morphine Allergy (units (unknown) date) Severe unknown) Hallucinating, Verified 02/08/22 08:38 (unknown) (no (unknown) (unknown) multivitamin (units (u nknown) date) (Multiple Vitamins unknown) 1 tab PO DAILY ##0 12/20/16 02/03/22 (unknown) (no (unknown) (unknown) oxycodone 5 mg (units (unknown) date) tablet 5 mg PO Q4H unknown) PRN pain, moderate #60 02/07/22 (unknown) (no (unknown) (unknown) pain (units (unkno wn) date) unknown) (unknown) (no (unknown) (unknown) pain. (units (unkno wn) date) unknown) (unknown) (no (unknown) (unknown) release 24 hr (units ( unknown) date) (Glucotrol XL) unknown) (unknown) (no (unknown) (unknown) spray,suspension (units (unknown) date) unknown) (unknown) (no (unknown) (unknown) substance use (units ( unknown) date) type: does not unknown) use (unknown) (no (unknown) (unknown) tablet 4-6) (units (un known) date) unknown) (unknown) (no (unknown) (unknown) tablet) (units (unkno wn) date) unknown) (unknown) (no (unknown) (unknown) tablet,extended (units (unknown) date) release 24 hr unknown) (unknown) (no (unknown) (unknown) through XII (units (unk nown) date) grossly intact. 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 and 3:00 a.m.. (unknown) (no (unknown) (unknown) trazodone 100 mg (units (unknown) date) tablet 400 tab PO unknown) BEDTIME 30 days #120 12/10/21 (unknown) (no (unknown) (unknown) up without any (units (unknown) date) significant pain unknown) (unknown) (no (unknown) (unknown) varenicline (units (un known) date) [VARENICLINE] unknown) AdvReac Severe Paranoia Verified 02/08/22 08:38 (unknown) (no (unknown) (unknown) was discharged (units (unknown) date) from the hospital unknown) yesterday after having lumbar fusion he during Result panel 129 (unknown) (no (unknown) (unknown) (no value) (units (unk nown) date) unknown) (unknown) (no (unknown) (unknown) Date of Service: (units (unknown) date) 02/08/22 unknown) (unknown) (no (unknown) (unknown) (no value) (units (unk nown) date) unknown) (unknown) (no (unknown) (unknown) 'He gets (units (unkno wn) date) unknown) (unknown) (no (unknown) (unknown) 0.2 mg PO BID (units ( unknown) date) unknown) (unknown) (no (unknown) (unknown) 02/08/22 08:53 (units (unknown) date) unknown) (unknown) (no (unknown) (unknown) 1 puff INHALATION (units (unknown) date) Q4-6H PRN (Reason: unknown) shortness of breath or wheezing) Qty: 15 (unknown) (no (unknown) (unknown) 1 spray (units (unkno wn) date) Intranasal DAILY unknown) PRN (Reason: Allergy Symptoms) Qty: 0 (unknown) (no (unknown) (unknown) 1 tab PO DAILY (units (unknown) date) Qty: 0 unknown) (unknown) (no (unknown) (unknown) 1-2 tabs q 4 (units (u nknown) date) hours PRN moderate unknown) to severe pain (unknown) (no (unknown) (unknown) 10 mg PO DAILY (units (unknown) date) unknown) (unknown) (no (unknown) (unknown) 100 mg PO BID PRN (units (unknown) date) (Reason: unknown) constipation) Qty: 60 2RF (unknown) (no (unknown) (unknown) 100 mg PO DAILY (units (unknown) date) unknown) (unknown) (no (unknown) (unknown) 2 tab PO Q4H PRN (units (unknown) date) (Reason: Pain unknown) (Scale Score 4-6)) (unknown) (no (unknown) (unknown) 2.5 mg PO DAILY (units (unknown) date) unknown) (unknown) (no (unknown) (unknown) 25 mg PO QID PRN (units (unknown) date) (Reason: vertigo) unknown) Qty: 30 0RF (unknown) (no (unknown) (unknown) 325 mg PO DAILY (units (unknown) date) unknown) (unknown) (no (unknown) (unknown) 40 mg PO DAILY (units (unknown) date) unknown) (unknown) (no (unknown) (unknown) 400 tab PO (units (unk nown) date) BEDTIME 30 Days unknown) Qty: 120 0RF (unknown) (no (unknown) (unknown) 5 mg PO Q4H PRN (units (unknown) date) (Reason: pain, unknown) moderate) Qty: 60 0RF (unknown) (no (unknown) (unknown) ANXIETY, (units (unkno wn) date) unknown) (unknown) (no (unknown) (unknown) Allergies (units (unkn own) date) unknown) (unknown) (no (unknown) (unknown) DIZZINESS (units (unkn own) date) unknown) (unknown) (no (unknown) (unknown) ED Orders (units (unkn own) date) unknown) (unknown) (no (unknown) (unknown) EXPOSURE (units (unkno wn) date) unknown) (unknown) (no (unknown) (unknown) Emergency Report (units (unknown) date) unknown) (unknown) (no (unknown) (unknown) Home Medications (units (unknown) date) unknown) (unknown) (no (unknown) (unknown) [facility] (units (unknown) date) [address] [place] [address] unknown) [place] [address] (unknown) (no (unknown) (unknown) JERKING, (units (unkno wn) date) unknown) (unknown) (no (unknown) (unknown) Lab Results (units (un known) date) unknown) (unknown) (no (unknown) (unknown) Label Comments: (units (unknown) date) unknown) (unknown) (no (unknown) (unknown) MINUTES (units (unkno wn) date) unknown) (unknown) (no (unknown) (unknown) NAUSEA W/I (units (unk nown) date) unknown) (unknown) (no (unknown) (unknown) Previous Rx's (units ( unknown) date) unknown) (unknown) (no (unknown) (unknown) Rx Instructions: (units (unknown) date) unknown) (unknown) (no (unknown) (unknown) Stop: 02/08/22 (units (unknown) date) 10:50 unknown) (unknown) (no (unknown) (unknown) Vital Signs - 8 (units (unknown) date) hr unknown) (unknown) (no (unknown) (unknown) W/EXTENDED (units (unk nown) date) unknown) (unknown) (no (unknown) (unknown) mind' (units (unkno wn) date) unknown) (unknown) (no (unknown) (unknown) out of his (units (unk nown) date) unknown) (unknown) (no (unknown) (unknown) take 1 tablet by (units (unknown) date) mouth once daily unknown) (unknown) (no (unknown) (unknown) (no value) (units (unk nown) date) unknown) (unknown) (no (unknown) (unknown) 02/08/22 02/08/22 (units (unknown) date) 02/08/22 unknown) Range/Units (unknown) (no (unknown) (unknown) 02/08/22 02/08/22 (units (unknown) date) Range/Units unknown) (unknown) (no (unknown) (unknown) 08:53 08:53 (units (un known) date) unknown) (unknown) (no (unknown) (unknown) 08:53 08:53 08:53 (units (unknown) date) unknown) (unknown) (no (unknown) (unknown) Zyrtec 10 mg (units (u nknown) date) Capsule unknown) (unknown) (no (unknown) (unknown) acetaminophen-cod (units (unknown) date) eine 300-30 mg unknown) tablet (unknown) (no (unknown) (unknown) clonidine HCl 0.1 (units (unknown) date) mg tablet unknown) (unknown) (no (unknown) (unknown) docusate sodium (units (unknown) date) 100 mg Capsule unknown) (unknown) (no (unknown) (unknown) ferrous sulfate (units (unknown) date) 325 mg (65 mg unknown) iron) tablet,delayed release (DR/EC) (unknown) (no (unknown) (unknown) fluticasone (units (un known) date) propionate 16 GM unknown) spray,suspension (unknown) (no (unknown) (unknown) furosemide 40 mg (units (unknown) date) tablet unknown) (unknown) (no (unknown) (unknown) glipizide (units (unkn own) date) [Glucotrol XL] 2.5 unknown) mg tablet extended release 24 hr (unknown) (no (unknown) (unknown) levalbuterol (units (u nknown) date) tartrate [Xopenex unknown) HFA] 45 mcg/actuation HFA aerosol inhaler (unknown) (no (unknown) (unknown) lisinopril 10 mg (units (unknown) date) tablet unknown) (unknown) (no (unknown) (unknown) meclizine 25 mg (units (unknown) date) tablet unknown) (unknown) (no (unknown) (unknown) metoprolol (units (unk nown) date) succinate 100 mg unknown) Tablet Extended Release 24 Hr (unknown) (no (unknown) (unknown) montelukast 10 mg (units (unknown) date) Tablet unknown) (unknown) (no (unknown) (unknown) multivitamin (units (u nknown) date) [Multiple unknown) Vitamins] 1 EACH tablet (unknown) (no (unknown) (unknown) oxycodone 5 mg (units (unknown) date) tablet unknown) (unknown) (no (unknown) (unknown) trazodone 100 mg (units (unknown) date) tablet unknown) (unknown) (no (unknown) (unknown) 02/08/22 (units (unkno wn) date) unknown) (unknown) (no (unknown) (unknown) Medication (units (unk nown) date) Instructions unknown) Recorded (unknown) (no (unknown) (unknown) Medication (units (unk nown) date) Instructions unknown) Recorded Confirmed (unknown) (no (unknown) (unknown) caps (units (unkno wn) date) unknown) (unknown) (no (unknown) (unknown) tabs (units (unkno wn) date) unknown) (unknown) (no (unknown) (unknown) (Xopenex HFA) #15 (units (unknown) date) grams unknown) (unknown) (no (unknown) (unknown) [id number] (units (unkn own) date) unknown) (unknown) (no (unknown) (unknown) 02/03/22 (units (unkno wn) date) unknown) (unknown) (no (unknown) (unknown) 02/08/22 08:53 (units (unknown) date) unknown) (unknown) (no (unknown) (unknown) 02/08/22 08:54 (units (unknown) date) unknown) (unknown) (no (unknown) (unknown) 02/08/22 09:30 (units (unknown) date) unknown) (unknown) (no (unknown) (unknown) 02/08/22 10:36 (units (unknown) date) unknown) (unknown) (no (unknown) (unknown) 08:38 (units (unkno wn) date) unknown) (unknown) (no (unknown) (unknown) 08:39 (units (unkno wn) date) unknown) (unknown) (no (unknown) (unknown) 0RF (units (unkno wn) date) unknown) (unknown) (no (unknown) (unknown) 12 point review (units (unknown) date) of systems is unknown) negative except for those stated above and HPI (unknown) (no (unknown) (unknown) ABDOMEN: Soft, (units (unknown) date) nontender. unknown) Normoactive bowel sounds all 4 quadrants. No (unknown) (no (unknown) (unknown) ALT (<50) (units (u nknown) date) IU/L unknown) (unknown) (no (unknown) (unknown) ALT 48 (<50) (units (unknown) date) IU/L unknown) (unknown) (no (unknown) (unknown) ANTIBIOTICS)] (units ( unknown) date) unknown) (unknown) (no (unknown) (unknown) AST (17-59) (units (unknown) date) IU/L unknown) (unknown) (no (unknown) (unknown) AST 76 H (units (unk nown) date) (17-59) IU/L unknown) (unknown) (no (unknown) (unknown) Acetaminophen (units ( unknown) date) (Acetaminophen 325 unknown) Mg Tablet) 650 mg PO NOW ONE (unknown) (no (unknown) (unknown) Achalasia (units (unkn own) date) unknown) (unknown) (no (unknown) (unknown) Age/Sex: 76 / M (units (unknown) date) unknown) (unknown) (no (unknown) (unknown) Albumin (units (unkno wn) date) (3.5-5.0) g/dL unknown) (unknown) (no (unknown) (unknown) Albumin 3.9 (units ( unknown) date) (3.5-5.0) g/dL unknown) (unknown) (no (unknown) (unknown) Albumin/Globulin (units (unknown) date) Ratio (1.0-2.8) unknown) (unknown) (no (unknown) (unknown) Albumin/Globulin (units (unknown) date) Ratio 1.2 unknown) (1.0-2.8) (unknown) (no (unknown) (unknown) Alkaline (units (unkno wn) date) Phosphatase unknown) (38-126) U/L (unknown) (no (unknown) (unknown) Alkaline (units (unkno wn) date) Phosphatase 63 unknown) (38-126) U/L (unknown) (no (unknown) (unknown) Allergy/AdvReac (units (unknown) date) Type Severity unknown) Reaction Status Date / Time (unknown) (no (unknown) (unknown) Anginal pain (units (u nknown) date) unknown) (unknown) (no (unknown) (unknown) Antibiotics) (units (u nknown) date) unknown) (unknown) (no (unknown) (unknown) Asthma (units (unkno wn) date) unknown) (unknown) (no (unknown) (unknown) Atrial (units (unkno wn) date) fibrillation unknown) (unknown) (no (unknown) (unknown) BUN (9-20) (units ( unknown) date) mg/dL unknown) (unknown) (no (unknown) (unknown) BUN 15 (9-20) (units (unknown) date) mg/dL unknown) (unknown) (no (unknown) (unknown) BUN/Creatinine (units (unknown) date) Ratio (6-22) unknown) (unknown) (no (unknown) (unknown) BUN/Creatinine (units (unknown) date) Ratio 18.8 unknown) (6-22) (unknown) (no (unknown) (unknown) Baso # (Auto) (units ( unknown) date) (0-100) /uL unknown) (unknown) (no (unknown) (unknown) Baso # (Auto) 0 (units (unknown) date) (0-100) /uL unknown) (unknown) (no (unknown) (unknown) Baso % (Auto) (units ( unknown) date) (0-2) % unknown) (unknown) (no (unknown) (unknown) Baso % (Auto) (units ( unknown) date) 0.7 (0-2) % unknown) (unknown) (no (unknown) (unknown) Blood Culture (units ( unknown) date) Stat unknown) (unknown) (no (unknown) (unknown) Blood Pressure (units (unknown) date) 149/71 H 02/08/22 unknown) 08:39 (unknown) (no (unknown) (unknown) Blood Pressure (units (unknown) date) 149/71 H unknown) (unknown) (no (unknown) (unknown) CARDIOVASCULAR: (units (unknown) date) Denies chest pain, unknown) palpitations, orthopnea, edema (unknown) (no (unknown) (unknown) CARDIOVASCULAR: (units (unknown) date) Regular rate and unknown) rhythm without murmurs, rubs or gallops. (unknown) (no (unknown) (unknown) CBC Auto Diff (units ( unknown) date) [Complete Blood unknown) Count AUTO DIFF] Stat (unknown) (no (unknown) (unknown) CK-MB (CK-2) (units (u nknown) date) (<2.37) ng/mL unknown) (unknown) (no (unknown) (unknown) CK-MB (CK-2) (units (u nknown) date) 2.14 (<2.37) unknown) ng/mL (unknown) (no (unknown) (unknown) CK-MB (CK-2) Rel (units (unknown) date) Index (1.5-5.0) unknown) % (unknown) (no (unknown) (unknown) CK-MB (CK-2) Rel (units (unknown) date) Index 0.3 L unknown) (1.5-5.0) % (unknown) (no (unknown) (unknown) CMP (units (unkno wn) date) [Comprehensive unknown) Metabolic Panel] Stat (unknown) (no (unknown) (unknown) COPD (chronic (units ( unknown) date) obstructive unknown) pulmonary disease) (unknown) (no (unknown) (unknown) COVID19 -Nasal (units (unknown) date) RAPID/Pre-Proc unknown) Stat (unknown) (no (unknown) (unknown) Calcium (units (unkno wn) date) (8.4-10.2) mg/dL unknown) (unknown) (no (unknown) (unknown) Calcium 8.7 (units ( unknown) date) (8.4-10.2) mg/dL unknown) (unknown) (no (unknown) (unknown) Carbon Dioxide (units (unknown) date) (22-32) mmol/L unknown) (unknown) (no (unknown) (unknown) Carbon Dioxide (units (unknown) date) 31 (22-32) unknown) mmol/L (unknown) (no (unknown) (unknown) Cervical spinal (units (unknown) date) stenosis unknown) (unknown) (no (unknown) (unknown) Chief complaint: (units (unknown) date) Weakness unknown) (unknown) (no (unknown) (unknown) Chloride (units (unkno wn) date) (98-107) mmol/L unknown) (unknown) (no (unknown) (unknown) Chloride 102 (units (unknown) date) (98-107) mmol/L unknown) (unknown) (no (unknown) (unknown) 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 (10/22/16) (unknown) (no (unknown) (unknown) 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 unknown) Stat (unknown) (no (unknown) (unknown) Consult to (units (unk nown) date) Physical Therapy unknown) Evaluate + Treat (unknown) (no (unknown) (unknown) Coronary artery (units (unknown) date) disease unknown) (unknown) (no (unknown) (unknown) Course (units (unkno wn) date) unknown) (unknown) (no (unknown) (unknown) Creatinine (units (unk nown) date) (0.66-1.25) mg/dL unknown) (unknown) (no (unknown) (unknown) Creatinine 0.80 (units (unknown) date) (0.66-1.25) unknown) mg/dL (unknown) (no (unknown) (unknown) : 1945 (units (unknown) date) Acct:[id number] unknown) (unknown) (no (unknown) (unknown) Kimmy Gomez, (units (unknown) date) [Primary Care unknown) Provider] - (unknown) (no (unknown) (unknown) Departure (units (unkn own) date) unknown) (unknown) (no (unknown) (unknown) Discharge Plan (units (unknown) date) unknown) (unknown) (no (unknown) (unknown) Discontinued (units (u nknown) date) Medications unknown) (unknown) (no (unknown) (unknown) EKG-12 Lead Stat (units (unknown) date) unknown) (unknown) (no (unknown) (unknown) ER Physician: (units ( unknown) date) Bridgett Fletcher unknown) D.O. (unknown) (no (unknown) (unknown) EXTREMITIES: (units (u nknown) date) Normal range of unknown) motion, no clubbing or edema. Neurovascularly (unknown) (no (unknown) (unknown) Eos # (Auto) (units (u nknown) date) (0-450) /uL unknown) (unknown) (no (unknown) (unknown) Eos # (Auto) 100 (units (unknown) date) (0-450) /uL unknown) (unknown) (no (unknown) (unknown) Eos % (Auto) (units (u nknown) date) (2-4) % unknown) (unknown) (no (unknown) (unknown) Eos % (Auto) 2.1 (units (unknown) date) (2-4) % unknown) (unknown) (no (unknown) (unknown) Estimated GFR (units ( unknown) date) (>60) mL/min unknown) (unknown) (no (unknown) (unknown) Estimated GFR > (units (unknown) date) 60 (>60) mL/min unknown) (unknown) (no (unknown) (unknown) Exam (units (unkno wn) date) unknown) (unknown) (no (unknown) (unknown) Family History (units (unknown) date) (Reviewed 02/07/22 unknown) @ 11:16 by [facility]) (unknown) (no (unknown) (unknown) Father (units (unkno wn) date) Hypertension unknown) (unknown) (no (unknown) (unknown) GASTROINTESTINAL: (units (unknown) date) Denies nausea, unknown) vomiting, abdominal pain, diarrhea, (unknown) (no (unknown) (unknown) GENERAL: Alert (units (unknown) date) slightly confused unknown) 76-year-old male and in no acute distress. (unknown) (no (unknown) (unknown) GENERAL: Denies (units (unknown) date) chills, fatigue, unknown) malaise, fever, sweats, travel (unknown) (no (unknown) (unknown) : Denies (units (unkn own) date) dysuria, unknown) frequency, incontinence, hematuria, urinary retention, flank (unknown) (no (unknown) (unknown) General (units (unkno wn) date) unknown) (unknown) (no (unknown) (unknown) GenericComposite[ (units (unknown) date) Plt Count unknown) (150-400) X10^3/uL ] (unknown) (no (unknown) (unknown) GenericComposite[ (units (unknown) date) Plt Count 319 unknown) (150-400) X10^3/uL ] (unknown) (no (unknown) (unknown) GenericComposite[ (units (unknown) date) RBC (4.5-5.9) unknown) X10^6/uL ] (unknown) (no (unknown) (unknown) GenericComposite[ (units (unknown) date) RBC 3.52 L unknown) (4.5-5.9) X10^6/uL ] (unknown) (no (unknown) (unknown) GenericComposite[ (units (unknown) date) WBC (4.5-11.0) unknown) X10^3/uL ] (unknown) (no (unknown) (unknown) GenericComposite[ (units (unknown) date) WBC 5.9 unknown) (4.5-11.0) X10^3/uL ] (unknown) (no (unknown) (unknown) Globulin (units (unkno wn) date) (1.7-4.1) g/dL unknown) (unknown) (no (unknown) (unknown) Globulin 3.2 (units (unknown) date) (1.7-4.1) g/dL unknown) (unknown) (no (unknown) (unknown) Glucose (units (unkno wn) date) (80-110) mg/dL unknown) (unknown) (no (unknown) (unknown) Glucose 182 H (units (unknown) date) (80-110) mg/dL unknown) (unknown) (no (unknown) (unknown) H/O arthroscopic (units (unknown) date) knee surgery unknown) (11/14/17) (unknown) (no (unknown) (unknown) HEENT: Denies (units ( unknown) date) sinus pain, ear unknown) pain, sore throat, difficulty swallowing, neck (unknown) (no (unknown) (unknown) HEENT: Head (units (un known) date) atraumatic,EOMI, unknown) pupils reactive, face symmetric, moist mucous (unknown) (no (unknown) (unknown) HPI - Weakness (units (unknown) date) unknown) (unknown) (no (unknown) (unknown) HPI Narrative: (units (unknown) date) unknown) (unknown) (no (unknown) (unknown) Hct (41-53) % (units (unknown) date) unknown) (unknown) (no (unknown) (unknown) Hct 32.7 L (units (un known) date) (41-53) % unknown) (unknown) (no (unknown) (unknown) He is having some (units (unknown) date) mild pain now but unknown) seems to be definitely more appropriate he (unknown) (no (unknown) (unknown) Hgb (units (unkno wn) date) (13.5-17.5) g/dL unknown) (unknown) (no (unknown) (unknown) Hgb 11.3 L (units (un known) date) (13.5-17.5) g/dL unknown) (unknown) (no (unknown) (unknown) History of (units (unk nown) date) Present Illness unknown) (unknown) (no (unknown) (unknown) History of aortic (units (unknown) date) dissection unknown) () (unknown) (no (unknown) (unknown) History of (units (unk nown) date) arthroplasty of unknown) left knee (05/24/19) (unknown) (no (unknown) (unknown) History of (units (unk nown) date) arthroplasty of unknown) right knee (unknown) (no (unknown) (unknown) History of (units (unk nown) date) bilateral total unknown) hip arthroplasty (unknown) (no (unknown) (unknown) History of (units (unk nown) date) cardiac cath unknown) () (unknown) (no (unknown) (unknown) History of (units (unk nown) date) esophageal surgery unknown) (unknown) (no (unknown) (unknown) History of (units (unk nown) date) incision and unknown) drainage (-2016) (unknown) (no (unknown) (unknown) History of prior (units (unknown) date) ablation treatment unknown) (-03/2017) (unknown) (no (unknown) (unknown) History of (units (unk nown) date) surgery unknown) (unknown) (no (unknown) (unknown) Hx of (units (unkno wn) date) cholecystectomy unknown) (unknown) (no (unknown) (unknown) Hx of hernia (units (u nknown) date) repair unknown) (unknown) (no (unknown) (unknown) Hx of sinus (units (un known) date) surgery unknown) (unknown) (no (unknown) (unknown) Hypertension (units (u nknown) date) unknown) (unknown) (no (unknown) (unknown) INHIBITOR] (units (unk nown) date) unknown) (unknown) (no (unknown) (unknown) Inhibitor (units (unkn own) date) MUSCLES unknown) (unknown) (no (unknown) (unknown) Initial Vital (units ( unknown) date) Signs unknown) (unknown) (no (unknown) (unknown) Initial Vital (units ( unknown) date) Signs: unknown) (unknown) (no (unknown) (unknown) Ischemic (units (unkno wn) date) cardiomyopathy unknown) (unknown) (no (unknown) (unknown) Lab Data (units (unkno wn) date) unknown) (unknown) (no (unknown) (unknown) Labs: (units (unkno wn) date) unknown) (unknown) (no (unknown) (unknown) Lactate (units (unkno wn) date) (0.7-2.1) mmol/L unknown) (unknown) (no (unknown) (unknown) Lactate 1.6 (units (unknown) date) (0.7-2.1) mmol/L unknown) (unknown) (no (unknown) (unknown) Lactate (Lactic (units (unknown) date) Acid) Stat unknown) (unknown) (no (unknown) (unknown) Lymph # (Auto) (units (unknown) date) (6048-8849) /uL unknown) (unknown) (no (unknown) (unknown) Lymph # (Auto) (units (unknown) date) 700 L unknown) (2067-1362) /uL (unknown) (no (unknown) (unknown) Lymph % (Auto) (units (unknown) date) (25-40) % unknown) (unknown) (no (unknown) (unknown) Lymph % (Auto) (units (unknown) date) 11.7 L (25-40) unknown) % (unknown) (no (unknown) (unknown) MCH (26-34) (units (unknown) date) PG unknown) (unknown) (no (unknown) (unknown) MCH 32.0 (units (unkn own) date) (26-34) PG unknown) (unknown) (no (unknown) (unknown) MCHC (30-36) (units (unknown) date) % unknown) (unknown) (no (unknown) (unknown) MCHC 34.5 (units (unk nown) date) (30-36) % unknown) (unknown) (no (unknown) (unknown) MCV (80-100) (units (unknown) date) fL unknown) (unknown) (no (unknown) (unknown) MCV 92.8 (units (unkn own) date) (80-100) fL unknown) (unknown) (no (unknown) (unknown) MDM - Weakness (units (unknown) date) unknown) (unknown) (no (unknown) (unknown) MUSCULOSKELETAL: (units (unknown) date) See HPI unknown) (unknown) (no (unknown) (unknown) Medical History (units (unknown) date) (Reviewed 02/07/22 unknown) @ 11:16 by [facility]) (unknown) (no (unknown) (unknown) Mode of arrival: (units (unknown) date) Ambulatory unknown) (unknown) (no (unknown) (unknown) [place] # (Auto) (units ( unknown) date) (0-900) /uL unknown) (unknown) (no (unknown) (unknown) [place] # (Auto) (units ( unknown) date) 800 (0-900) unknown) /uL (unknown) (no (unknown) (unknown) [place] % (Auto) (units ( unknown) date) (3-14) % unknown) (unknown) (no (unknown) (unknown) [place] % (Auto) (units ( unknown) date) 14.4 H (3-14) unknown) % (unknown) (no (unknown) (unknown) Mother (units (unknown) date) Stroke unknown) (unknown) (no (unknown) (unknown) NEUROLOGIC: (units (un known) date) Denies weakness, unknown) dizziness, headache, numbness, change in speech, (unknown) (no (unknown) (unknown) NEUROLOGICAL: (units ( unknown) date) Alert and oriented unknown) x2.Normal gait and speech. Cranial nerves II (unknown) (no (unknown) (unknown) Narcotic (units (unkno wn) date) dependence unknown) (unknown) (no (unknown) (unknown) Narrative: (units (unk nown) date) unknown) (unknown) (no (unknown) (unknown) Neck pain, (units (unk nown) date) chronic unknown) (unknown) (no (unknown) (unknown) Neut # (Auto) (units ( unknown) date) (6637-9443) /uL unknown) (unknown) (no (unknown) (unknown) Neut # (Auto) (units ( unknown) date) 4200 unknown) (8510-4987) /uL (unknown) (no (unknown) (unknown) Neut % (Auto) (units ( unknown) date) (50-75) % unknown) (unknown) (no (unknown) (unknown) Neut % (Auto) (units ( unknown) date) 71.1 (50-75) % unknown) (unknown) (no (unknown) (unknown) No Action (units (unkn own) date) unknown) (unknown) (no (unknown) (unknown) Ordered: (units (unkno wn) date) unknown) (unknown) (no (unknown) (unknown) Orders (units (unkno wn) date) unknown) (unknown) (no (unknown) (unknown) Oxygen Delivery (units (unknown) date) Method 02/08/22 unknown) 08:39 (unknown) (no (unknown) (unknown) Oxygen Delivery (units (unknown) date) Method Room Air unknown) (unknown) (no (unknown) (unknown) PSYCHIATRIC: No (units (unknown) date) concerning unknown) psychosocial issues. (unknown) (no (unknown) (unknown) Patient History (units (unknown) date) unknown) (unknown) (no (unknown) (unknown) Patient is a (units (u nknown) date) 76-year-old male unknown) with history of COPD, chronic AFib, not (unknown) (no (unknown) (unknown) Patient: (units (unkno wn) date) Dominic Viveros unknown) MR#: M (unknown) (no (unknown) (unknown) Potassium (units (unkn own) date) (3.4-5.1) mmol/L unknown) (unknown) (no (unknown) (unknown) Potassium 3.4 (units (unknown) date) (3.4-5.1) mmol/L unknown) (unknown) (no (unknown) (unknown) Prescriptions: (units (unknown) date) unknown) (unknown) (no (unknown) (unknown) Procalcitonin (units ( unknown) date) (<0.5) ng/mL unknown) (unknown) (no (unknown) (unknown) Procalcitonin (units ( unknown) date) 0.07 (<0.5) unknown) ng/mL (unknown) (no (unknown) (unknown) Procalcitonin (units ( unknown) date) Stat unknown) (unknown) (no (unknown) (unknown) Pulse Oximetry (units (unknown) date) 97 02/08/22 unknown) 08:39 (unknown) (no (unknown) (unknown) Pulse Oximetry 97 (units (unknown) date) unknown) (unknown) (no (unknown) (unknown) Pulse Rate 117 H (units (unknown) date) 02/08/22 08:39 unknown) (unknown) (no (unknown) (unknown) Pulse Rate 117 H (units (unknown) date) unknown) (unknown) (no (unknown) (unknown) RDW (units (unkno wn) date) (11.6-14.8) % unknown) (unknown) (no (unknown) (unknown) RDW 12.9 (units (unkn own) date) (11.6-14.8) % unknown) (unknown) (no (unknown) (unknown) RESPIRATORY: (units (u nknown) date) Breath sounds unknown) equal bilaterally, no wheezes rales or rhonchi. (unknown) (no (unknown) (unknown) RESPIRATORY: (units (u nknown) date) Denies dyspnea, unknown) cough, wheezing, hemoptysis, sputum. (unknown) (no (unknown) (unknown) Referrals: (units (unk nown) date) unknown) (unknown) (no (unknown) (unknown) Related Data (units (u nknown) date) unknown) (unknown) (no (unknown) (unknown) Respiratory Rate (units (unknown) date) 14 02/08/22 unknown) 08:39 (unknown) (no (unknown) (unknown) Respiratory Rate (units (unknown) date) 14 unknown) (unknown) (no (unknown) (unknown) Result diagrams: (units (unknown) date) unknown) (unknown) (no (unknown) (unknown) Review of Systems (units (unknown) date) unknown) (unknown) (no (unknown) (unknown) S/P CABG x 3 (units (u nknown) date) () unknown) (unknown) (no (unknown) (unknown) S/P cervical (units (u nknown) date) spinal fusion unknown) (unknown) (no (unknown) (unknown) S/P lumbar fusion (units (unknown) date) unknown) (unknown) (no (unknown) (unknown) SARS-CoV-2 (PCR) (units (unknown) date) (Negative) unknown) (unknown) (no (unknown) (unknown) SARS-CoV-2 (PCR) (units (unknown) date) Negative unknown) (Negative) (unknown) (no (unknown) (unknown) SKIN: No rash, no (units (unknown) date) erythema, no unknown) pruritus (unknown) (no (unknown) (unknown) SKIN: Warm, dry, (units (unknown) date) no laceration, no unknown) petechiae, no rashes or lesions. (unknown) (no (unknown) (unknown) Signed By: (units (unk nown) date) unknown) (unknown) (no (unknown) (unknown) Smoking Status: (units (unknown) date) Former smoker unknown) (unknown) (no (unknown) (unknown) Smoking Status: (units (unknown) date) Former smoker unknown) (unknown) (no (unknown) (unknown) Social History (units (unknown) date) (Reviewed 02/07/22 unknown) @ 11:16 by [facility]) (unknown) (no (unknown) (unknown) Sodium (units (unkno wn) date) (137-145) mmol/L unknown) (unknown) (no (unknown) (unknown) Sodium 140 (units (u nknown) date) (137-145) mmol/L unknown) (unknown) (no (unknown) (unknown) Source: patient (units (unknown) date) unknown) (unknown) (no (unknown) (unknown) Stated complaint: (units (unknown) date) 'NEEDS MORE CARE' unknown) DISCHARGED FROM 02/07 (unknown) (no (unknown) (unknown) [id number] (units (unknown) date) Reductase AdvReac unknown) Mild WEAK Verified 02/08/22 08:38 (unknown) (no (unknown) (unknown) Substance Use (units ( unknown) date) Type: does not use unknown) (unknown) (no (unknown) (unknown) Sulfa (units (unkno wn) date) (Sulfonamide unknown) Allergy Mild RASH Verified 02/08/22 08:38 (unknown) (no (unknown) (unknown) Surgical History (units (unknown) date) (Reviewed 02/07/22 unknown) @ 11:16 by [facility]) (unknown) (no (unknown) (unknown) Temperature 98.9 (units (unknown) date) F 02/08/22 08:39 unknown) (unknown) (no (unknown) (unknown) Temperature 98.9 (units (unknown) date) F unknown) (unknown) (no (unknown) (unknown) Time Seen by (units (u nknown) date) Provider: 02/08/22 unknown) 08:41 (unknown) (no (unknown) (unknown) Total Bilirubin (units (unknown) date) (0.2-1.3) mg/dL unknown) (unknown) (no (unknown) (unknown) Total Bilirubin (units (unknown) date) 1.0 (0.2-1.3) unknown) mg/dL (unknown) (no (unknown) (unknown) Total Creatine (units (unknown) date) Kinase (55-170) unknown) U/L (unknown) (no (unknown) (unknown) Total Creatine (units (unknown) date) Kinase 849 H unknown) (55-170) U/L (unknown) (no (unknown) (unknown) Total Protein (units ( unknown) date) (6.3-8.2) g/dL unknown) (unknown) (no (unknown) (unknown) Total Protein (units ( unknown) date) 7.1 (6.3-8.2) unknown) g/dL (unknown) (no (unknown) (unknown) Troponin + CK (units ( unknown) date) Cardiac Panel Stat unknown) (unknown) (no (unknown) (unknown) Troponin I (units (unk nown) date) (0.01-0.034) unknown) ng/mL (unknown) (no (unknown) (unknown) Troponin I < (units (unknown) date) 0.012 unknown) (0.01-0.034) ng/mL (unknown) (no (unknown) (unknown) UA Complete (units (un known) date) [Urinalysis and unknown) Microscopic] Stat (unknown) (no (unknown) (unknown) Ventricular (units (un known) date) bigeminy unknown) (unknown) (no (unknown) (unknown) Vital Signs (units (un known) date) unknown) (unknown) (no (unknown) (unknown) Vital signs: (units (u nknown) date) unknown) (unknown) (no (unknown) (unknown) XR chest 1V Stat (units (unknown) date) unknown) (unknown) (no (unknown) (unknown) [Embedded Image (units (unknown) date) Not Available] unknown) (unknown) (no (unknown) (unknown) [[id number] (units (unknown) date) REDUCTASE unknown) (unknown) (no (unknown) (unknown) [SULFA (units (unkno wn) date) (SULFONAMIDE unknown) (unknown) (no (unknown) (unknown) acetaminophen 300 (units (unknown) date) mg-codeine 30 mg 2 unknown) tab PO Q4H PRN Pain (Scale Score 02/03/22 (unknown) (no (unknown) (unknown) alcohol intake (units (unknown) date) frequency: 0-2 unknown) drinks per day (unknown) (no (unknown) (unknown) alcohol intake: (units (unknown) date) current unknown) (unknown) (no (unknown) (unknown) anticoagulated, (units (unknown) date) ischemic unknown) cardiomyopathy, history of mesenteric ischemic, (unknown) (no (unknown) (unknown) buprenorphine (units ( unknown) date) [BUPRENORPHINE] unknown) AdvReac Mild NAUSEA, Verified 02/08/22 08:38 (unknown) (no (unknown) (unknown) celecoxib (units (unkn own) date) [CELECOXIB] unknown) Allergy Mild SWELLING Verified 02/08/22 08:38 (unknown) (no (unknown) (unknown) cetirizine 10 mg (units (unknown) date) capsule (Zyrtec) unknown) 10 mg PO DAILY 05/22/19 02/03/22 (unknown) (no (unknown) (unknown) chest pain he has (units (unknown) date) no abdominal pain unknown) nausea or vomiting. (unknown) (no (unknown) (unknown) clonidine HCl 0.1 (units (unknown) date) mg tablet 0.2 mg unknown) PO BID 12/08/21 02/03/22 (unknown) (no (unknown) (unknown) confusion (units (unkn own) date) unknown) (unknown) (no (unknown) (unknown) constipation, (units ( unknown) date) melena. unknown) (unknown) (no (unknown) (unknown) diazepam [From (units (unknown) date) Valium] Allergy unknown) Severe Confusion Verified 02/08/22 08:38 (unknown) (no (unknown) (unknown) docusate sodium (units (unknown) date) 100 mg capsule 100 unknown) mg PO BID PRN constipation #60 02/07/22 (unknown) (no (unknown) (unknown) drinking very (units ( unknown) date) much. She states unknown) last night he was very confused seem to be in (unknown) (no (unknown) (unknown) fentanyl AdvReac (units (unknown) date) Severe Confusion unknown) Verified 02/08/22 08:39 (unknown) (no (unknown) (unknown) ferrous sulfate (units (unknown) date) 325 mg (65 mg 325 unknown) mg PO DAILY 10/19/19 02/03/22 (unknown) (no (unknown) (unknown) fluticasone (units (un known) date) propionate 50 1 unknown) spray intranasal DAILY PRN 11/02/17 02/03/22 (unknown) (no (unknown) (unknown) furosemide 40 mg (units (unknown) date) tablet 40 mg PO unknown) DAILY 02/03/22 02/03/22 (unknown) (no (unknown) (unknown) glipizide 2.5 mg (units (unknown) date) tablet, extended unknown) 2.5 mg PO DAILY 10/08/21 02/03/22 (unknown) (no (unknown) (unknown) guarding or (units (un known) date) rebound. unknown) (unknown) (no (unknown) (unknown) he does have a (units (unknown) date) history of alcohol unknown) use states that he really that when (unknown) (no (unknown) (unknown) his stay he had (units (unknown) date) some encephalitis unknown) thought to be due from polypharmacy, although (unknown) (no (unknown) (unknown) household (units (unkn own) date) members: spouse unknown) (unknown) (no (unknown) (unknown) hydromorphone (units ( unknown) date) [From Dilaudid] unknown) Allergy Severe Hallucinating, Verified 02/08/22 (unknown) (no (unknown) (unknown) hyoscyamine (units (un known) date) [HYOSCYAMINE] unknown) AdvReac Mild LEG Verified 02/08/22 08:38 (unknown) (no (unknown) (unknown) hypertension with (units (unknown) date) recent lumbar unknown) fusion, who presents today with confusion. He (unknown) (no (unknown) (unknown) intact (units (unkno wn) date) unknown) (unknown) (no (unknown) (unknown) iron) (units (unkno wn) date) tablet,delayed unknown) release (unknown) (no (unknown) (unknown) is afebrile he is (units (unknown) date) noted to be unknown) tachycardic, he has no shortness breath, he has no (unknown) (no (unknown) (unknown) latex [LATEX] (units ( unknown) date) Allergy Mild RASH unknown) Verified 02/08/22 08:38 (unknown) (no (unknown) (unknown) levalbuterol (units (u nknown) date) tartrate 45 1 puff unknown) inhalation Q4-6H PRN 06/22/18 (unknown) (no (unknown) (unknown) lisinopril 10 mg (units (unknown) date) tablet 10 mg PO unknown) DAILY 12/08/21 02/03/22 (unknown) (no (unknown) (unknown) lot of pain he (units (unknown) date) got 2 tablets of unknown) oxycodone and Tylenol at least 4 doses (unknown) (no (unknown) (unknown) mcg/actuation (units ( unknown) date) aerosol inhaler unknown) shortness of breath or wheezing (unknown) (no (unknown) (unknown) mcg/actuation (units ( unknown) date) nasal Allergy unknown) Symptoms ##0 (unknown) (no (unknown) (unknown) meclizine 25 mg (units (unknown) date) tablet 25 mg PO unknown) QID PRN vertigo #30 tabs 10/09/21 (unknown) (no (unknown) (unknown) membranes (units (unkn own) date) unknown) (unknown) (no (unknown) (unknown) metoprolol (units (unk nown) date) succinate 100 mg unknown) 100 mg PO DAILY 02/03/22 02/03/22 (unknown) (no (unknown) (unknown) montelukast 10 mg (units (unknown) date) tablet 10 mg PO unknown) DAILY 02/03/22 02/03/22 (unknown) (no (unknown) (unknown) morphine Allergy (units (unknown) date) Severe unknown) Hallucinating, Verified 02/08/22 08:38 (unknown) (no (unknown) (unknown) multivitamin (units (u nknown) date) (Multiple Vitamins unknown) 1 tab PO DAILY ##0 12/20/16 02/03/22 (unknown) (no (unknown) (unknown) oxycodone 5 mg (units (unknown) date) tablet 5 mg PO Q4H unknown) PRN pain, moderate #60 02/07/22 (unknown) (no (unknown) (unknown) pain (units (unkno wn) date) unknown) (unknown) (no (unknown) (unknown) pain. (units (unkno wn) date) unknown) (unknown) (no (unknown) (unknown) release 24 hr (units ( unknown) date) (Glucotrol XL) unknown) (unknown) (no (unknown) (unknown) spray,suspension (units (unknown) date) unknown) (unknown) (no (unknown) (unknown) substance use (units ( unknown) date) type: does not unknown) use (unknown) (no (unknown) (unknown) tablet 4-6) (units (un known) date) unknown) (unknown) (no (unknown) (unknown) tablet) (units (unkno wn) date) unknown) (unknown) (no (unknown) (unknown) tablet,extended (units (unknown) date) release 24 hr unknown) (unknown) (no (unknown) (unknown) through XII (units (unk nown) date) grossly intact. 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 and 3:00 a.m.. (unknown) (no (unknown) (unknown) trazodone 100 mg (units (unknown) date) tablet 400 tab PO unknown) BEDTIME 30 days #120 12/10/21 (unknown) (no (unknown) (unknown) up without any (units (unknown) date) significant pain unknown) (unknown) (no (unknown) (unknown) varenicline (units (un known) date) [VARENICLINE] unknown) AdvReac Severe Paranoia Verified 02/08/22 08:38 (unknown) (no (unknown) (unknown) was discharged (units (unknown) date) from the hospital unknown) yesterday after having lumbar fusion he during Result panel 130 (unknown) (no (unknown) (unknown) (no value) (units (unk nown) date) unknown) (unknown) (no (unknown) (unknown) Heavy growth- (units ( unknown) date) Mixed fecal emily unknown) (unknown) (no (unknown) (unknown) Negative for (units (u nknown) date) Campylobacter unknown) (unknown) (no (unknown) (unknown) Negative for (units (u nknown) date) Shiga Toxin 1 unknown) (unknown) (no (unknown) (unknown) Negative for (units (u nknown) date) Shiga Toxin 2 unknown) Result panel 131 (unknown) (no (unknown) (unknown) (no value) (units (unk nown) date) unknown) (unknown) (no (unknown) (unknown) Radiologist (units (un known) date) Impression: unknown) (unknown) (no (unknown) (unknown) Date of Service: (units (unknown) date) 02/08/22 unknown) (unknown) (no (unknown) (unknown) (no value) (units (unk nown) date) unknown) (unknown) (no (unknown) (unknown) <Electronically (units (unknown) date) signed by Bridgett unknownRui Fletcher D.O.> (unknown) (no (unknown) (unknown) 'He gets (units (unkno wn) date) unknown) (unknown) (no (unknown) (unknown) 0.2 mg PO BID (units ( unknown) date) unknown) (unknown) (no (unknown) (unknown) 02/08/22 08:53 (units (unknown) date) unknown) (unknown) (no (unknown) (unknown) 02/08/22 1824 (units ( unknown) date) unknown) (unknown) (no (unknown) (unknown) 1 puff INHALATION (units (unknown) date) Q4-6H PRN (Reason: unknown) shortness of breath or wheezing) Qty: 15 (unknown) (no (unknown) (unknown) 1 spray (units (unkno wn) date) Intranasal DAILY unknown) PRN (Reason: Allergy Symptoms) Qty: 0 (unknown) (no (unknown) (unknown) 1 tab PO DAILY (units (unknown) date) Qty: 0 unknown) (unknown) (no (unknown) (unknown) 1-2 tabs q 4 (units (u nknown) date) hours PRN moderate unknown) to severe pain (unknown) (no (unknown) (unknown) 10 mg PO DAILY (units (unknown) date) unknown) (unknown) (no (unknown) (unknown) 100 mg PO BID PRN (units (unknown) date) (Reason: unknown) constipation) Qty: 60 2RF (unknown) (no (unknown) (unknown) 100 mg PO DAILY (units (unknown) date) unknown) (unknown) (no (unknown) (unknown) 2 tab PO Q4H PRN (units (unknown) date) (Reason: Pain unknown) (Scale Score 4-6)) (unknown) (no (unknown) (unknown) 2.5 mg PO DAILY (units (unknown) date) unknown) (unknown) (no (unknown) (unknown) 25 mg PO QID PRN (units (unknown) date) (Reason: vertigo) unknown) Qty: 30 0RF (unknown) (no (unknown) (unknown) 325 mg PO DAILY (units (unknown) date) unknown) (unknown) (no (unknown) (unknown) 40 mg PO DAILY (units (unknown) date) unknown) (unknown) (no (unknown) (unknown) 400 tab PO (units (unk nown) date) BEDTIME 30 Days unknown) Qty: 120 0RF (unknown) (no (unknown) (unknown) 5 mg PO Q4H PRN (units (unknown) date) (Reason: pain, unknown) moderate) Qty: 60 0RF (unknown) (no (unknown) (unknown) ANXIETY, (units (unkno wn) date) unknown) (unknown) (no (unknown) (unknown) Allergies (units (unkn own) date) unknown) (unknown) (no (unknown) (unknown) DIZZINESS (units (unkn own) date) unknown) (unknown) (no (unknown) (unknown) Documented By: AT (units (unknown) date) unknown) (unknown) (no (unknown) (unknown) ED Orders (units (unkn own) date) unknown) (unknown) (no (unknown) (unknown) EXPOSURE (units (unkno wn) date) unknown) (unknown) (no (unknown) (unknown) Emergency Report (units (unknown) date) unknown) (unknown) (no (unknown) (unknown) Home Medications (units (unknown) date) unknown) (unknown) (no (unknown) (unknown) [facility] (units (unknown) date) [address] [place] [address] unknown) [place] [address] (unknown) (no (unknown) (unknown) JERKING, (units (unkno wn) date) unknown) (unknown) (no (unknown) (unknown) Lab Results (units (un known) date) unknown) (unknown) (no (unknown) (unknown) Label Comments: (units (unknown) date) unknown) (unknown) (no (unknown) (unknown) Last Admin: (units (un known) date) 02/08/22 11:12 unknown) Dose: 10 mg (unknown) (no (unknown) (unknown) Last Admin: (units (un known) date) 02/08/22 11:17 unknown) Dose: Not Given (unknown) (no (unknown) (unknown) MINUTES (units (unkno wn) date) unknown) (unknown) (no (unknown) (unknown) NAUSEA W/I (units (unk nown) date) unknown) (unknown) (no (unknown) (unknown) Previous Rx's (units ( unknown) date) unknown) (unknown) (no (unknown) (unknown) Rx Instructions: (units (unknown) date) unknown) (unknown) (no (unknown) (unknown) Signed (units (unkno wn) date) unknown) (unknown) (no (unknown) (unknown) Stop: 02/08/22 (units (unknown) date) 10:50 unknown) (unknown) (no (unknown) (unknown) Stop: 02/08/22 (units (unknown) date) 11:05 unknown) (unknown) (no (unknown) (unknown) Vital Signs - 8 (units (unknown) date) hr unknown) (unknown) (no (unknown) (unknown) W/EXTENDED (units (unk nown) date) unknown) (unknown) (no (unknown) (unknown) XRay Report (units (un known) date) unknown) (unknown) (no (unknown) (unknown) mind' (units (unkno wn) date) unknown) (unknown) (no (unknown) (unknown) out of his (units (unk nown) date) unknown) (unknown) (no (unknown) (unknown) take 1 tablet by (units (unknown) date) mouth once daily unknown) (unknown) (no (unknown) (unknown) (no value) (units (unk nown) date) unknown) (unknown) (no (unknown) (unknown) 02/08/22 02/08/22 (units (unknown) date) 02/08/22 unknown) Range/Units (unknown) (no (unknown) (unknown) 02/08/22 02/08/22 (units (unknown) date) Range/Units unknown) (unknown) (no (unknown) (unknown) 08:53 08:53 (units (un known) date) unknown) (unknown) (no (unknown) (unknown) 08:53 08:53 08:53 (units (unknown) date) unknown) (unknown) (no (unknown) (unknown) Zyrtec 10 mg (units (u nknown) date) Capsule unknown) (unknown) (no (unknown) (unknown) acetaminophen-cod (units (unknown) date) eine 300-30 mg unknown) tablet (unknown) (no (unknown) (unknown) clonidine HCl 0.1 (units (unknown) date) mg tablet unknown) (unknown) (no (unknown) (unknown) docusate sodium (units (unknown) date) 100 mg Capsule unknown) (unknown) (no (unknown) (unknown) ferrous sulfate (units (unknown) date) 325 mg (65 mg unknown) iron) tablet,delayed release (DR/EC) (unknown) (no (unknown) (unknown) fluticasone (units (un known) date) propionate 16 GM unknown) spray,suspension (unknown) (no (unknown) (unknown) furosemide 40 mg (units (unknown) date) tablet unknown) (unknown) (no (unknown) (unknown) glipizide (units (unkn own) date) [Glucotrol XL] 2.5 unknown) mg tablet extended release 24 hr (unknown) (no (unknown) (unknown) levalbuterol (units (u nknown) date) tartrate [Xopenex unknown) HFA] 45 mcg/actuation HFA aerosol inhaler (unknown) (no (unknown) (unknown) lisinopril 10 mg (units (unknown) date) tablet unknown) (unknown) (no (unknown) (unknown) meclizine 25 mg (units (unknown) date) tablet unknown) (unknown) (no (unknown) (unknown) metoprolol (units (unk nown) date) succinate 100 mg unknown) Tablet Extended Release 24 Hr (unknown) (no (unknown) (unknown) montelukast 10 mg (units (unknown) date) Tablet unknown) (unknown) (no (unknown) (unknown) multivitamin (units (u nknown) date) [Multiple unknown) Vitamins] 1 EACH tablet (unknown) (no (unknown) (unknown) oxycodone 5 mg (units (unknown) date) tablet unknown) (unknown) (no (unknown) (unknown) trazodone 100 mg (units (unknown) date) tablet unknown) (unknown) (no (unknown) (unknown) 02/08/22 (units (unkno wn) date) unknown) (unknown) (no (unknown) (unknown) ED. he has (units (unk nown) date) multiple opiate unknown) pain allergies he is given oxycodone and Tylenol in (unknown) (no (unknown) (unknown) Medication (units (unk nown) date) Instructions unknown) Recorded (unknown) (no (unknown) (unknown) Medication (units (unk nown) date) Instructions unknown) Recorded Confirmed (unknown) (no (unknown) (unknown) Post-op pain (units (u nknown) date) unknown) (unknown) (no (unknown) (unknown) caps (units (unkno wn) date) unknown) (unknown) (no (unknown) (unknown) may get COVID in (units (unknown) date) a facility and unknown) would prefer to try and take him home again. (unknown) (no (unknown) (unknown) tabs (units (unkno wn) date) unknown) (unknown) (no (unknown) (unknown) the hospitalist (units (unknown) date) everyone is happy unknown) to take him back into the hospital and find (unknown) (no (unknown) (unknown) (Xopenex HFA) #15 (units (unknown) date) grams unknown) (unknown) (no (unknown) (unknown) TRAMADOL DOES (units (unknown) date) NOT CONTAIN unknown) TYLENOL (unknown) (no (unknown) (unknown) *Continue to take (units (unknown) date) medications as unknown) directed (unknown) (no (unknown) (unknown) *Follow up with (units (unknown) date) your primary care unknown) provider in 2-3 days or call [phone] (unknown) (no (unknown) (unknown) *Return to ER if (units (unknown) date) you should have unknown) any new, worsening or concerning symptoms (unknown) (no (unknown) (unknown) *What to do: You (units (unknown) date) were once again unknown) offered opportunity for rehab facility. It (unknown) (no (unknown) (unknown) *You have been (units (unknown) date) diagnosed with unknown) postoperative pain (unknown) (no (unknown) (unknown) [id number] (units (unkn own) date) unknown) (unknown) (no (unknown) (unknown) 02/03/22 (units (unkno wn) date) unknown) (unknown) (no (unknown) (unknown) 02/08/22 09:30 (units (unknown) date) unknown) (unknown) (no (unknown) (unknown) 02/08/22 10:36 (units (unknown) date) unknown) (unknown) (no (unknown) (unknown) 08:38 (units (unkno wn) date) unknown) (unknown) (no (unknown) (unknown) 0RF (units (unkno wn) date) unknown) (unknown) (no (unknown) (unknown) 1. You have been (units (unknown) date) prescribed unknown) narcotic medications, it does have (unknown) (no (unknown) (unknown) 11:10 (units (unkno wn) date) unknown) (unknown) (no (unknown) (unknown) 12 point review (units (unknown) date) of systems is unknown) negative except for those stated above and HPI (unknown) (no (unknown) (unknown) 2. Please (units (unk nown) date) understand that we unknown) cannot provide further refills of narcotics, (unknown) (no (unknown) (unknown) 3. While on (units (u nknown) date) these medications unknown) you cannot drive or operate heavy machinery. (unknown) (no (unknown) (unknown) 4. You cannot (units (unknown) date) sign legal unknown) documents or perform any duties such as this. (unknown) (no (unknown) (unknown) 5. As long as (units (unknown) date) you're taking unknown) opiate pain medications he should also be taking a (unknown) (no (unknown) (unknown) ? (units (unkno wn) date) unknown) (unknown) (no (unknown) (unknown) ABDOMEN: Soft, (units (unknown) date) nontender. unknown) Normoactive bowel sounds all 4 quadrants. No (unknown) (no (unknown) (unknown) ALT (<50) (units (u nknown) date) IU/L unknown) (unknown) (no (unknown) (unknown) ALT 48 (<50) (units (unknown) date) IU/L unknown) (unknown) (no (unknown) (unknown) ANTIBIOTICS)] (units ( unknown) date) unknown) (unknown) (no (unknown) (unknown) AST (17-59) (units (unknown) date) IU/L unknown) (unknown) (no (unknown) (unknown) AST 76 H (units (unk nown) date) (17-59) IU/L unknown) (unknown) (no (unknown) (unknown) Accession Number: (units (unknown) date) [id number] ?? unknown) (unknown) (no (unknown) (unknown) Acct:[id number] (units (unknown) date) unknown) (unknown) (no (unknown) (unknown) Acetaminophen (units ( unknown) date) (Acetaminophen 325 unknown) Mg Tablet) 650 mg PO NOW ONE (unknown) (no (unknown) (unknown) Achalasia (units (unkn own) date) unknown) (unknown) (no (unknown) (unknown) Activity (units (unkno wn) date) Restrictions/Addit unknown) ional Instructions: (unknown) (no (unknown) (unknown) Age/Sex: 76 / M (units (unknown) date) unknown) (unknown) (no (unknown) (unknown) Age/Sex: 76 / M (units (unknown) date) unknown) (unknown) (no (unknown) (unknown) Albumin (units (unkno wn) date) (3.5-5.0) g/dL unknown) (unknown) (no (unknown) (unknown) Albumin 3.9 (units ( unknown) date) (3.5-5.0) g/dL unknown) (unknown) (no (unknown) (unknown) Albumin/Globulin (units (unknown) date) Ratio (1.0-2.8) unknown) (unknown) (no (unknown) (unknown) Albumin/Globulin (units (unknown) date) Ratio 1.2 unknown) (1.0-2.8) (unknown) (no (unknown) (unknown) Alkaline (units (unkno wn) date) Phosphatase unknown) (38-126) U/L (unknown) (no (unknown) (unknown) Alkaline (units (unkno wn) date) Phosphatase 63 unknown) (38-126) U/L (unknown) (no (unknown) (unknown) Allergy/AdvReac (units (unknown) date) Type Severity unknown) Reaction Status Date / Time (unknown) (no (unknown) (unknown) Anginal pain (units (u nknown) date) unknown) (unknown) (no (unknown) (unknown) Antibiotics) (units (u nknown) date) unknown) (unknown) (no (unknown) (unknown) Approved by: (units (u nknown) date) mohamud Metcalf M.D. on 02/08/2022 at 8:42 ? (unknown) (no (unknown) (unknown) Asthma (units (unkno wn) date) unknown) (unknown) (no (unknown) (unknown) At this time (units (u nknown) date) there is really no unknown) indication or need for admission except for (unknown) (no (unknown) (unknown) Atrial (units (unkno wn) date) fibrillation unknown) (unknown) (no (unknown) (unknown) BUN (9-20) (units ( unknown) date) mg/dL unknown) (unknown) (no (unknown) (unknown) BUN 15 (9-20) (units (unknown) date) mg/dL unknown) (unknown) (no (unknown) (unknown) BUN/Creatinine (units (unknown) date) Ratio (6-22) unknown) (unknown) (no (unknown) (unknown) BUN/Creatinine (units (unknown) date) Ratio 18.8 unknown) (6-22) (unknown) (no (unknown) (unknown) Baso # (Auto) (units ( unknown) date) (0-100) /uL unknown) (unknown) (no (unknown) (unknown) Baso # (Auto) 0 (units (unknown) date) (0-100) /uL unknown) (unknown) (no (unknown) (unknown) Baso % (Auto) (units ( unknown) date) (0-2) % unknown) (unknown) (no (unknown) (unknown) Baso % (Auto) (units ( unknown) date) 0.7 (0-2) % unknown) (unknown) (no (unknown) (unknown) Blood Culture (units ( unknown) date) Stat unknown) (unknown) (no (unknown) (unknown) Blood Pressure (units (unknown) date) 149/71 H 02/08/22 unknown) 08:39 (unknown) (no (unknown) (unknown) Blood Pressure (units (unknown) date) 181/82 H unknown) (unknown) (no (unknown) (unknown) Bones and chest (units (unknown) date) wall:? No unknown) suspicious bony lesions.? Overlying soft tissues (unknown) (no (unknown) (unknown) CARDIOVASCULAR: (units (unknown) date) Denies chest pain, unknown) palpitations, orthopnea, edema (unknown) (no (unknown) (unknown) CARDIOVASCULAR: (units (unknown) date) Regular rate and unknown) rhythm without murmurs, rubs or gallops. (unknown) (no (unknown) (unknown) CK-MB (CK-2) (units (u nknown) date) (<2.37) ng/mL unknown) (unknown) (no (unknown) (unknown) CK-MB (CK-2) (units (u nknown) date) 2.14 (<2.37) unknown) ng/mL (unknown) (no (unknown) (unknown) CK-MB (CK-2) Rel (units (unknown) date) Index (1.5-5.0) unknown) % (unknown) (no (unknown) (unknown) CK-MB (CK-2) Rel (units (unknown) date) Index 0.3 L unknown) (1.5-5.0) % (unknown) (no (unknown) (unknown) COMPARISON:? (units (u nknown) date) [facility], unknown) CR, XR CHEST 1V, 02/04/2022, 18:16. (unknown) (no (unknown) (unknown) CONTROLLED (units (unk nown) date) SUBSTANCE unknown) DISCHARGE (Narcotoic/benzodi azepine/Flexeril/P henergan) (unknown) (no (unknown) (unknown) COPD (chronic (units ( unknown) date) obstructive unknown) pulmonary disease) (unknown) (no (unknown) (unknown) Calcium (units (unkno wn) date) (8.4-10.2) mg/dL unknown) (unknown) (no (unknown) (unknown) Calcium 8.7 (units ( unknown) date) (8.4-10.2) mg/dL unknown) (unknown) (no (unknown) (unknown) Carbon Dioxide (units (unknown) date) (22-32) mmol/L unknown) (unknown) (no (unknown) (unknown) Carbon Dioxide (units (unknown) date) 31 (22-32) unknown) mmol/L (unknown) (no (unknown) (unknown) Cervical spinal (units (unknown) date) stenosis unknown) (unknown) (no (unknown) (unknown) Chest x-ray: (units (u w) date) unknown) (unknown) (no (unknown) (unknown) Chief complaint: (units (unknown) date) Weakness unknown) (unknown) (no (unknown) (unknown) Chloride (units ( wn) date) (98-107) mmol/L unknown) (unknown) (no (unknown) (unknown) Chloride 102 (units (unknown) date) (98-107) mmol/L unknown) (unknown) (no (unknown) (unknown) Chronic (units (o wn) date) obstructive unknown) pulmonary disease (10/22/16) (unknown) (no (unknown) (unknown) Clinical (units (o wn) date) Impression: unknown) (unknown) (no (unknown) (unknown) 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 unknown) Stat (unknown) (no (unknown) (unknown) Consult to (units () date) Physical Therapy unknown) Evaluate + Treat (unknown) (no (unknown) (unknown) Coronary artery (units (unknown) date) disease unknown) (unknown) (no (unknown) (unknown) Course (units (o wn) date) unknown) (unknown) (no (unknown) (unknown) Creatinine (units () date) (0.66-1.25) mg/dL unknown) (unknown) (no (unknown) (unknown) Creatinine 0.80 (units (unknown) date) (0.66-1.25) unknown) mg/dL (unknown) (no (unknown) (unknown) : 1945 (units (unknown) date) Acct:[id number] unknown) (unknown) (no (unknown) (unknown) : 1945 (units (unknown) date) unknown) (unknown) (no (unknown) (unknown) Kimmy Gomez, (units (unknown) date) MD [Primary Care unknown) Provider] - (unknown) (no (unknown) (unknown) Date of Service: (units (unknown) date) 02/08/22 unknown) (unknown) (no (unknown) (unknown) Departure (units (unkn own) date) unknown) (unknown) (no (unknown) (unknown) Dictated by: (units (u nknown) date) Reid Martell unknownRui Horton on 02/08/2022 at 8:40 ? ? (unknown) (no (unknown) (unknown) Discharge Plan (units (unknown) date) unknown) (unknown) (no (unknown) (unknown) Discontinued (units (u nknown) date) Medications unknown) (unknown) (no (unknown) (unknown) ECG Data (units (unkno wn) date) unknown) (unknown) (no (unknown) (unknown) ER Physician: (units ( unknown) date) Bridgett Fletcher unknown) D.O. (unknown) (no (unknown) (unknown) EXTREMITIES: (units (u nknown) date) Normal range of unknown) motion, no clubbing or edema. Neurovascularly (unknown) (no (unknown) (unknown) Eos # (Auto) (units (u nknown) date) (0-450) /uL unknown) (unknown) (no (unknown) (unknown) Eos # (Auto) 100 (units (unknown) date) (0-450) /uL unknown) (unknown) (no (unknown) (unknown) Eos % (Auto) (units (u nknown) date) (2-4) % unknown) (unknown) (no (unknown) (unknown) Eos % (Auto) 2.1 (units (unknown) date) (2-4) % unknown) (unknown) (no (unknown) (unknown) Estimated GFR (units ( unknown) date) (>60) mL/min unknown) (unknown) (no (unknown) (unknown) Estimated GFR > (units (unknown) date) 60 (>60) mL/min unknown) (unknown) (no (unknown) (unknown) Exam (units (unkno wn) date) unknown) (unknown) (no (unknown) (unknown) FINDINGS:? (units (unk nown) date) unknown) (unknown) (no (unknown) (unknown) Family History (units (unknown) date) (Reviewed 02/07/22 unknown) @ 11:16 by [facility]) (unknown) (no (unknown) (unknown) Father (units (unkno wn) date) Hypertension unknown) (unknown) (no (unknown) (unknown) GASTROINTESTINAL: (units (unknown) date) Denies nausea, unknown) vomiting, abdominal pain, diarrhea, (unknown) (no (unknown) (unknown) GENERAL: Alert (units (unknown) date) slightly confused unknown) 76-year-old male and in no acute distress. (unknown) (no (unknown) (unknown) GENERAL: Denies (units (unknown) date) chills, fatigue, unknown) malaise, fever, sweats, travel (unknown) (no (unknown) (unknown) : Denies (units (unkn own) date) dysuria, unknown) frequency, incontinence, hematuria, urinary retention, flank (unknown) (no (unknown) (unknown) General (units (unkno wn) date) unknown) (unknown) (no (unknown) (unknown) GenericComposite[ (units (unknown) date) Plt Count unknown) (150-400) X10^3/uL ] (unknown) (no (unknown) (unknown) GenericComposite[ (units (unknown) date) Plt Count 319 unknown) (150-400) X10^3/uL ] (unknown) (no (unknown) (unknown) GenericComposite[ (units (unknown) date) RBC (4.5-5.9) unknown) X10^6/uL ] (unknown) (no (unknown) (unknown) GenericComposite[ (units (unknown) date) RBC 3.52 L unknown) (4.5-5.9) X10^6/uL ] (unknown) (no (unknown) (unknown) GenericComposite[ (units (unknown) date) WBC (4.5-11.0) unknown) X10^3/uL ] (unknown) (no (unknown) (unknown) GenericComposite[ (units (unknown) date) WBC 5.9 unknown) (4.5-11.0) X10^3/uL ] (unknown) (no (unknown) (unknown) Globulin (units (unkno wn) date) (1.7-4.1) g/dL unknown) (unknown) (no (unknown) (unknown) Globulin 3.2 (units (unknown) date) (1.7-4.1) g/dL unknown) (unknown) (no (unknown) (unknown) Glucose (units (unkno wn) date) (80-110) mg/dL unknown) (unknown) (no (unknown) (unknown) Glucose 182 H (units (unknown) date) (80-110) mg/dL unknown) (unknown) (no (unknown) (unknown) H/O arthroscopic (units (unknown) date) knee surgery unknown) (11/14/17) (unknown) (no (unknown) (unknown) HEENT: Denies (units ( unknown) date) sinus pain, ear unknown) pain, sore throat, difficulty swallowing, neck (unknown) (no (unknown) (unknown) HEENT: Head (units (un known) date) atraumatic,EOMI, unknown) pupils reactive, face symmetric, moist mucous (unknown) (no (unknown) (unknown) HPI - Weakness (units (unknown) date) unknown) (unknown) (no (unknown) (unknown) HPI Narrative: (units (unknown) date) unknown) (unknown) (no (unknown) (unknown) Hct (41-53) % (units (unknown) date) unknown) (unknown) (no (unknown) (unknown) Hct 32.7 L (units (un known) date) (41-53) % unknown) (unknown) (no (unknown) (unknown) He is having some (units (unknown) date) mild pain now but unknown) seems to be definitely more appropriate he (unknown) (no (unknown) (unknown) Hgb (units (unkno wn) date) (13.5-17.5) g/dL unknown) (unknown) (no (unknown) (unknown) Hgb 11.3 L (units (un known) date) (13.5-17.5) g/dL unknown) (unknown) (no (unknown) (unknown) History of (units (unk nown) date) Present Illness unknown) (unknown) (no (unknown) (unknown) History of aortic (units (unknown) date) dissection unknown) () (unknown) (no (unknown) (unknown) History of (units (unk nown) date) arthroplasty of unknown) left knee (05/24/19) (unknown) (no (unknown) (unknown) History of (units (unk nown) date) arthroplasty of unknown) right knee (unknown) (no (unknown) (unknown) History of (units (unk nown) date) bilateral total unknown) hip arthroplasty (unknown) (no (unknown) (unknown) History of (units (unk nown) date) cardiac cath unknown) () (unknown) (no (unknown) (unknown) History of (units (unk nown) date) esophageal surgery unknown) (unknown) (no (unknown) (unknown) History of (units (unk nown) date) incision and unknown) drainage () (unknown) (no (unknown) (unknown) History of prior (units (unknown) date) ablation treatment unknown) () (unknown) (no (unknown) (unknown) History of (units (unk nown) date) surgery unknown) (unknown) (no (unknown) (unknown) Hx of (units (unkno wn) date) cholecystectomy unknown) (unknown) (no (unknown) (unknown) Hx of hernia (units (u nknown) date) repair unknown) (unknown) (no (unknown) (unknown) Hx of sinus (units (un known) date) surgery unknown) (unknown) (no (unknown) (unknown) Hypertension (units (u nknown) date) unknown) (unknown) (no (unknown) (unknown) IMPRESSION:? No (units (unknown) date) acute unknown) cardiopulmonary abnormality. (unknown) (no (unknown) (unknown) INDICATIONS:? (units ( unknown) date) Confusion after unknown) surgery (unknown) (no (unknown) (unknown) INHIBITOR] (units (unk nown) date) unknown) (unknown) (no (unknown) (unknown) Imaging Data (units (u nknown) date) unknown) (unknown) (no (unknown) (unknown) Inhibitor (units (unkn own) date) MUSCLES unknown) (unknown) (no (unknown) (unknown) Initial Vital (units ( unknown) date) Signs unknown) (unknown) (no (unknown) (unknown) Initial Vital (units ( unknown) date) Signs: unknown) (unknown) (no (unknown) (unknown) Instructions: DI (units (unknown) date) for Postoperative unknown) Pain (unknown) (no (unknown) (unknown) Interpretation: (units (unknown) date) unknown) (unknown) (no (unknown) (unknown) Ischemic (units (unkno wn) date) cardiomyopathy unknown) (unknown) (no (unknown) (unknown) It is reported (units (unknown) date) that the was unknown) intoxicated during her visits in the hospital (unknown) (no (unknown) (unknown) Lab Data (units (unkno wn) date) unknown) (unknown) (no (unknown) (unknown) Labs: (units (unkno wn) date) unknown) (unknown) (no (unknown) (unknown) Lactate (units (unkno wn) date) (0.7-2.1) mmol/L unknown) (unknown) (no (unknown) (unknown) Lactate 1.6 (units (unknown) date) (0.7-2.1) mmol/L unknown) (unknown) (no (unknown) (unknown) Loc: ED (units (unkno wn) date) unknown) (unknown) (no (unknown) (unknown) Lungs and (units (unkn own) date) pleura:? Lungs are unknown) clear.? No pleural effusions or pneumothorax.? (unknown) (no (unknown) (unknown) Lymph # (Auto) (units (unknown) date) (4884-3871) /uL unknown) (unknown) (no (unknown) (unknown) Lymph # (Auto) (units (unknown) date) 700 L unknown) (6217-9851) /uL (unknown) (no (unknown) (unknown) Lymph % (Auto) (units (unknown) date) (25-40) % unknown) (unknown) (no (unknown) (unknown) Lymph % (Auto) (units (unknown) date) 11.7 L (25-40) unknown) % (unknown) (no (unknown) (unknown) MCH (26-34) (units (unknown) date) PG unknown) (unknown) (no (unknown) (unknown) MCH 32.0 (units (unkn own) date) (26-34) PG unknown) (unknown) (no (unknown) (unknown) MCHC (30-36) (units (unknown) date) % unknown) (unknown) (no (unknown) (unknown) MCHC 34.5 (units (unk nown) date) (30-36) % unknown) (unknown) (no (unknown) (unknown) MCV (80-100) (units (unknown) date) fL unknown) (unknown) (no (unknown) (unknown) MCV 92.8 (units (unkn own) date) (80-100) fL unknown) (unknown) (no (unknown) (unknown) MDM - Weakness (units (unknown) date) unknown) (unknown) (no (unknown) (unknown) MDM Narrative (units ( unknown) date) unknown) (unknown) (no (unknown) (unknown) MR#: [id number] (units (unknown) date) unknown) (unknown) (no (unknown) (unknown) MUSCULOSKELETAL: (units (unknown) date) See HPI unknown) (unknown) (no (unknown) (unknown) Mediastinum:? (units ( unknown) date) Mediastinal unknown) contours appear normal.? Heart size is enlarged.? (unknown) (no (unknown) (unknown) Medical History (units (unknown) date) (Reviewed 02/07/22 unknown) @ 11:16 by [facility]) (unknown) (no (unknown) (unknown) Medical decision (units (unknown) date) making narrative: unknown) (unknown) (no (unknown) (unknown) Mode of arrival: (units (unknown) date) Ambulatory unknown) (unknown) (no (unknown) (unknown) [place] # (Auto) (units ( unknown) date) (0-900) /uL unknown) (unknown) (no (unknown) (unknown) [place] # (Auto) (units ( unknown) date) 800 (0-900) unknown) /uL (unknown) (no (unknown) (unknown) [place] % (Auto) (units ( unknown) date) (3-14) % unknown) (unknown) (no (unknown) (unknown) [place] % (Auto) (units ( unknown) date) 14.4 H (3-14) unknown) % (unknown) (no (unknown) (unknown) Mother (units (unknown) date) Stroke unknown) (unknown) (no (unknown) (unknown) NEUROLOGIC: (units (un known) date) Denies weakness, unknown) dizziness, headache, numbness, change in speech, (unknown) (no (unknown) (unknown) NEUROLOGICAL: (units ( unknown) date) Alert and oriented unknown) x2.Normal gait and speech. Cranial nerves II (unknown) (no (unknown) (unknown) Narcotic (units (unkno wn) date) dependence unknown) (unknown) (no (unknown) (unknown) Narrative: (units (unk nown) date) unknown) (unknown) (no (unknown) (unknown) Neck pain, (units (unk nown) date) chronic unknown) (unknown) (no (unknown) (unknown) Neut # (Auto) (units ( unknown) date) (6031-1464) /uL unknown) (unknown) (no (unknown) (unknown) Neut # (Auto) (units ( unknown) date) 4200 unknown) (8719-1626) /uL (unknown) (no (unknown) (unknown) Neut % (Auto) (units ( unknown) date) (50-75) % unknown) (unknown) (no (unknown) (unknown) Neut % (Auto) (units ( unknown) date) 71.1 (50-75) % unknown) (unknown) (no (unknown) (unknown) No Action (units (unkn own) date) unknown) (unknown) (no (unknown) (unknown) Normal sinus (units (u nknown) date) rhythm rate 97 CA unknown) interval 172 QRS [address] changes no T- (unknown) (no (unknown) (unknown) Ordered: (units (unkno wn) date) unknown) (unknown) (no (unknown) (unknown) Ordering (units (unkno wn) date) Provider: unknown) Bridgett Fletcher D.O. (unknown) (no (unknown) (unknown) Orders (units (unkno wn) date) unknown) (unknown) (no (unknown) (unknown) Oxycodone 1 (units (un known) date) tablet every 6 unknown) hours (unknown) (no (unknown) (unknown) Oxycodone HCl (units ( unknown) date) (Oxycodone Ir 5 Mg unknown) Tablet) 10 mg PO NOW ONE (unknown) (no (unknown) (unknown) Oxygen Delivery (units (unknown) date) Method 02/08/22 unknown) 08:39 (unknown) (no (unknown) (unknown) Oxygen Delivery (units (unknown) date) Method Room Air unknown) (unknown) (no (unknown) (unknown) PROCEDURE:? XR (units (unknown) date) CHEST 1V unknown) (unknown) (no (unknown) (unknown) PSYCHIATRIC: No (units (unknown) date) concerning unknown) psychosocial issues. (unknown) (no (unknown) (unknown) Patient (units (unkno wn) date) Disposition: Home unknown) (unknown) (no (unknown) (unknown) Patient History (units (unknown) date) unknown) (unknown) (no (unknown) (unknown) Patient is a (units (u nknown) date) 76-year-old male unknown) with history of COPD, chronic AFib, not (unknown) (no (unknown) (unknown) Patient seems to (units (unknown) date) be needing more unknown) care at home. Although he is ambulatory in the (unknown) (no (unknown) (unknown) Patient: (units (unkno wn) date) Dominic Viveros unknown) MR#: M (unknown) (no (unknown) (unknown) Patient: (units (unkno wn) date) Dominic Viveros unknown) (unknown) (no (unknown) (unknown) Platelike (units (unkn own) date) unknown) (unknown) (no (unknown) (unknown) Potassium (units (unkn own) date) (3.4-5.1) mmol/L unknown) (unknown) (no (unknown) (unknown) Potassium 3.4 (units (unknown) date) (3.4-5.1) mmol/L unknown) (unknown) (no (unknown) (unknown) Prescriptions: (units (unknown) date) unknown) (unknown) (no (unknown) (unknown) Procalcitonin (units ( unknown) date) (<0.5) ng/mL unknown) (unknown) (no (unknown) (unknown) Procalcitonin (units ( unknown) date) 0.07 (<0.5) unknown) ng/mL (unknown) (no (unknown) (unknown) Procedure: XR (units ( unknown) date) chest 1V unknown) (unknown) (no (unknown) (unknown) Pulse Oximetry (units (unknown) date) 97 02/08/22 unknown) 08:39 (unknown) (no (unknown) (unknown) Pulse Oximetry 96 (units (unknown) date) unknown) (unknown) (no (unknown) (unknown) Pulse Rate 117 H (units (unknown) date) 02/08/22 08:39 unknown) (unknown) (no (unknown) (unknown) Pulse Rate 12 L (units (unknown) date) unknown) (unknown) (no (unknown) (unknown) RDW (units (unkno wn) date) (11.6-14.8) % unknown) (unknown) (no (unknown) (unknown) RDW 12.9 (units (unkn own) date) (11.6-14.8) % unknown) (unknown) (no (unknown) (unknown) RESPIRATORY: (units (u nknown) date) Breath sounds unknown) equal bilaterally, no wheezes rales or rhonchi. (unknown) (no (unknown) (unknown) RESPIRATORY: (units (u nknown) date) Denies dyspnea, unknown) cough, wheezing, hemoptysis, sputum. (unknown) (no (unknown) (unknown) Referrals: (units (unk nown) date) unknown) (unknown) (no (unknown) (unknown) Related Data (units (u nknown) date) unknown) (unknown) (no (unknown) (unknown) Respiratory Rate (units (unknown) date) 14 02/08/22 unknown) 08:39 (unknown) (no (unknown) (unknown) Respiratory Rate (units (unknown) date) 19 unknown) (unknown) (no (unknown) (unknown) Result diagrams: (units (unknown) date) unknown) (unknown) (no (unknown) (unknown) Review of Systems (units (unknown) date) unknown) (unknown) (no (unknown) (unknown) S/P CABG x 3 (units (u nknown) date) (-08/2007) unknown) (unknown) (no (unknown) (unknown) S/P cervical (units (u nknown) date) spinal fusion unknown) (unknown) (no (unknown) (unknown) S/P lumbar fusion (units (unknown) date) unknown) (unknown) (no (unknown) (unknown) SARS-CoV-2 (PCR) (units (unknown) date) (Negative) unknown) (unknown) (no (unknown) (unknown) SARS-CoV-2 (PCR) (units (unknown) date) Negative unknown) (Negative) (unknown) (no (unknown) (unknown) SKIN: No rash, no (units (unknown) date) erythema, no unknown) pruritus (unknown) (no (unknown) (unknown) SKIN: Warm, dry, (units (unknown) date) no laceration, no unknown) petechiae, no rashes or lesions. (unknown) (no (unknown) (unknown) Signed By: (units (unk nown) date) unknown) (unknown) (no (unknown) (unknown) Smoking Status: (units (unknown) date) Former smoker unknown) (unknown) (no (unknown) (unknown) Smoking Status: (units (unknown) date) Former smoker unknown) (unknown) (no (unknown) (unknown) Social History (units (unknown) date) (Reviewed 02/07/22 unknown) @ 11:16 by [facility]) (unknown) (no (unknown) (unknown) Sodium (units (unkno wn) date) (137-145) mmol/L unknown) (unknown) (no (unknown) (unknown) Sodium 140 (units (u nknown) date) (137-145) mmol/L unknown) (unknown) (no (unknown) (unknown) Source: patient (units (unknown) date) unknown) (unknown) (no (unknown) (unknown) Stated complaint: (units (unknown) date) 'NEEDS MORE CARE' unknown) DISCHARGED FROM 02/07 (unknown) (no (unknown) (unknown) [id number] (units (unknown) date) Reductase AdvReac unknown) Mild WEAK Verified 02/08/22 08:38 (unknown) (no (unknown) (unknown) Substance Use (units ( unknown) date) Type: does not use unknown) (unknown) (no (unknown) (unknown) Sulfa (units (unkno wn) date) (Sulfonamide unknown) Allergy Mild RASH Verified 02/08/22 08:38 (unknown) (no (unknown) (unknown) Surgical History (units (unknown) date) (Reviewed 02/07/22 unknown) @ 11:16 by [facility]) (unknown) (no (unknown) (unknown) Surgical changes (units (unknown) date) and devices:? unknown) Status post median sternotomy. (unknown) (no (unknown) (unknown) TECHNIQUE:? One (units (unknown) date) view of the chest unknown) was acquired.? (unknown) (no (unknown) (unknown) Temperature 98.9 (units (unknown) date) F 02/08/22 08:39 unknown) (unknown) (no (unknown) (unknown) Time Seen by (units (u nknown) date) Provider: 02/08/22 unknown) 08:41 (unknown) (no (unknown) (unknown) Total Bilirubin (units (unknown) date) (0.2-1.3) mg/dL unknown) (unknown) (no (unknown) (unknown) Total Bilirubin (units (unknown) date) 1.0 (0.2-1.3) unknown) mg/dL (unknown) (no (unknown) (unknown) Total Creatine (units (unknown) date) Kinase (55-170) unknown) U/L (unknown) (no (unknown) (unknown) Total Creatine (units (unknown) date) Kinase 849 H unknown) (55-170) U/L (unknown) (no (unknown) (unknown) Total Protein (units ( unknown) date) (6.3-8.2) g/dL unknown) (unknown) (no (unknown) (unknown) Total Protein (units ( unknown) date) 7.1 (6.3-8.2) unknown) g/dL (unknown) (no (unknown) (unknown) Troponin I (units (unk nown) date) (0.01-0.034) unknown) ng/mL (unknown) (no (unknown) (unknown) Troponin I < (units (unknown) date) 0.012 unknown) (0.01-0.034) ng/mL (unknown) (no (unknown) (unknown) Ventricular (units (un known) date) bigeminy unknown) (unknown) (no (unknown) (unknown) Visit Report (units (u nknown) date) Forms: Patient unknown) Portal/API (unknown) (no (unknown) (unknown) Vital Signs (units (un known) date) unknown) (unknown) (no (unknown) (unknown) Vital signs: (units (u nknown) date) unknown) (unknown) (no (unknown) (unknown) [Embedded Image (units (unknown) date) Not Available] unknown) (unknown) (no (unknown) (unknown) [[id number] (units (unknown) date) REDUCTASE unknown) (unknown) (no (unknown) (unknown) [SULFA (units (unkno wn) date) (SULFONAMIDE unknown) (unknown) (no (unknown) (unknown) acetaminophen 300 (units (unknown) date) mg-codeine 30 mg 2 unknown) tab PO Q4H PRN Pain (Scale Score 02/03/22 (unknown) (no (unknown) (unknown) acetaminophen/Tyl (units (unknown) date) enol/paracetamol unknown) in it, DO NOT TAKE MORE THAN 4,00mg in 24 (unknown) (no (unknown) (unknown) alcohol intake (units (unknown) date) frequency: 0-2 unknown) drinks per day (unknown) (no (unknown) (unknown) alcohol intake: (units (unknown) date) current unknown) (unknown) (no (unknown) (unknown) anticoagulated, (units (unknown) date) ischemic unknown) cardiomyopathy, history of mesenteric ischemic, (unknown) (no (unknown) (unknown) appear (units (unkno wn) date) unknown) (unknown) (no (unknown) (unknown) appropriate (units (unk nown) date) placement for him. unknown) However both patient and are frayed that he (unknown) (no (unknown) (unknown) atelectatic (units (un known) date) changes in the unknown) left lower lung. (unknown) (no (unknown) (unknown) benzodiazepines (units (unknown) date) or controlled unknown) substances through the ED and her pain management (unknown) (no (unknown) (unknown) buprenorphine (units ( unknown) date) [BUPRENORPHINE] unknown) AdvReac Mild NAUSEA, Verified 02/08/22 08:38 (unknown) (no (unknown) (unknown) celecoxib (units (unkn own) date) [CELECOXIB] unknown) Allergy Mild SWELLING Verified 02/08/22 08:38 (unknown) (no (unknown) (unknown) cetirizine 10 mg (units (unknown) date) capsule (Zyrtec) unknown) 10 mg PO DAILY 05/22/19 02/03/22 (unknown) (no (unknown) (unknown) chest pain he has (units (unknown) date) no abdominal pain unknown) nausea or vomiting. (unknown) (no (unknown) (unknown) clonidine HCl 0.1 (units (unknown) date) mg tablet 0.2 mg unknown) PO BID 12/08/21 02/03/22 (unknown) (no (unknown) (unknown) confusion (units (unkn own) date) unknown) (unknown) (no (unknown) (unknown) constipation, (units ( unknown) date) melena. unknown) (unknown) (no (unknown) (unknown) constipation. (units ( unknown) date) unknown) (unknown) (no (unknown) (unknown) diazepam [From (units (unknown) date) Valium] Allergy unknown) Severe Confusion Verified 02/08/22 08:38 (unknown) (no (unknown) (unknown) docusate sodium (units (unknown) date) 100 mg capsule 100 unknown) mg PO BID PRN constipation #60 02/07/22 (unknown) (no (unknown) (unknown) drinking very (units ( unknown) date) much. She states unknown) last night he was very confused seem to be in (unknown) (no (unknown) (unknown) fentanyl AdvReac (units (unknown) date) Severe Confusion unknown) Verified 02/08/22 08:39 (unknown) (no (unknown) (unknown) ferrous sulfate (units (unknown) date) 325 mg (65 mg 325 unknown) mg PO DAILY 10/19/19 02/03/22 (unknown) (no (unknown) (unknown) fluticasone (units (un known) date) propionate 50 1 unknown) spray intranasal DAILY PRN 11/02/17 02/03/22 (unknown) (no (unknown) (unknown) furosemide 40 mg (units (unknown) date) tablet 40 mg PO unknown) DAILY 02/03/22 02/03/22 (unknown) (no (unknown) (unknown) glipizide 2.5 mg (units (unknown) date) tablet, extended unknown) 2.5 mg PO DAILY 10/08/21 02/03/22 (unknown) (no (unknown) (unknown) go home. (units (unkno wn) date) unknown) (unknown) (no (unknown) (unknown) guarding or (units (un known) date) rebound. unknown) (unknown) (no (unknown) (unknown) he does have a (units (unknown) date) history of alcohol unknown) use states that he really that when (unknown) (no (unknown) (unknown) here and patient (units (unknown) date) also has a history unknown) of alcoholism. (unknown) (no (unknown) (unknown) his stay he had (units (unknown) date) some encephalitis unknown) thought to be due from polypharmacy, although (unknown) (no (unknown) (unknown) hours of Tylenol. (units (unknown) date) unknown) (unknown) (no (unknown) (unknown) household (units (unkn own) date) members: spouse unknown) (unknown) (no (unknown) (unknown) hydromorphone (units ( unknown) date) [From Dilaudid] unknown) Allergy Severe Hallucinating, Verified 02/08/22 (unknown) (no (unknown) (unknown) hyoscyamine (units (un known) date) [HYOSCYAMINE] unknown) AdvReac Mild LEG Verified 02/08/22 08:38 (unknown) (no (unknown) (unknown) hypertension with (units (unknown) date) recent lumbar unknown) fusion, who presents today with confusion. He (unknown) (no (unknown) (unknown) intact (units (unkno wn) date) unknown) (unknown) (no (unknown) (unknown) iron) (units (unkno wn) date) tablet,delayed unknown) release (unknown) (no (unknown) (unknown) is afebrile he is (units (unknown) date) noted to be unknown) tachycardic, he has no shortness breath, he has no (unknown) (no (unknown) (unknown) keeps popping her (units (unknown) date) for pain unknown) medications. Social Work has been involved spoken to (unknown) (no (unknown) (unknown) latex [LATEX] (units ( unknown) date) Allergy Mild RASH unknown) Verified 02/08/22 08:38 (unknown) (no (unknown) (unknown) levalbuterol (units (u nknown) date) tartrate 45 1 puff unknown) inhalation Q4-6H PRN 06/22/18 (unknown) (no (unknown) (unknown) lisinopril 10 mg (units (unknown) date) tablet 10 mg PO unknown) DAILY 12/08/21 02/03/22 (unknown) (no (unknown) (unknown) lot of pain he (units (unknown) date) got 2 tablets of unknown) oxycodone and Tylenol at least 4 doses (unknown) (no (unknown) (unknown) mcg/actuation (units ( unknown) date) aerosol inhaler unknown) shortness of breath or wheezing (unknown) (no (unknown) (unknown) mcg/actuation (units ( unknown) date) nasal Allergy unknown) Symptoms ##0 (unknown) (no (unknown) (unknown) meclizine 25 mg (units (unknown) date) tablet 25 mg PO unknown) QID PRN vertigo #30 tabs 10/09/21 (unknown) (no (unknown) (unknown) membranes (units (unkn own) date) unknown) (unknown) (no (unknown) (unknown) metoprolol (units (unk nown) date) succinate 100 mg unknown) 100 mg PO DAILY 02/03/22 02/03/22 (unknown) (no (unknown) (unknown) montelukast 10 mg (units (unknown) date) tablet 10 mg PO unknown) DAILY 02/03/22 02/03/22 (unknown) (no (unknown) (unknown) morphine Allergy (units (unknown) date) Severe unknown) Hallucinating, Verified 02/08/22 08:38 (unknown) (no (unknown) (unknown) multivitamin (units (u nknown) date) (Multiple Vitamins unknown) 1 tab PO DAILY ##0 12/20/16 02/03/22 (unknown) (no (unknown) (unknown) oxycodone 5 mg (units (unknown) date) tablet 5 mg PO Q4H unknown) PRN pain, moderate #60 02/07/22 (unknown) (no (unknown) (unknown) pain (units (unkno wn) date) unknown) (unknown) (no (unknown) (unknown) pain. (units (unkno wn) date) unknown) (unknown) (no (unknown) (unknown) placement and (units ( unknown) date) they do not want unknown) placement at this time. (unknown) (no (unknown) (unknown) release 24 hr (units ( unknown) date) (Glucotrol XL) unknown) (unknown) (no (unknown) (unknown) spray,suspension (units (unknown) date) unknown) (unknown) (no (unknown) (unknown) stool softener (units (unknown) date) such as Colace, unknown) Dulcolax, MiraLAX or prune juice, to help avoid (unknown) (no (unknown) (unknown) substance use (units ( unknown) date) type: does not unknown) use (unknown) (no (unknown) (unknown) tablet 4-6) (units (un known) date) unknown) (unknown) (no (unknown) (unknown) tablet) (units (unkno wn) date) unknown) (unknown) (no (unknown) (unknown) tablet,extended (units (unknown) date) release 24 hr unknown) (unknown) (no (unknown) (unknown) that your pain (units (unknown) date) can be well unknown) controlled and monitored. At this time you opted to (unknown) (no (unknown) (unknown) the emergency (units ( unknown) date) department. unknown) states that her biggest complaint is that he (unknown) (no (unknown) (unknown) through XII (units (unk nown) date) grossly intact. 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 and 3:00 a.m.. (unknown) (no (unknown) (unknown) trazodone 100 mg (units (unknown) date) tablet 400 tab PO unknown) BEDTIME 30 days #120 12/10/21 (unknown) (no (unknown) (unknown) unremarkable.? (units (unknown) date) unknown) (unknown) (no (unknown) (unknown) up without any (units (unknown) date) significant pain unknown) (unknown) (no (unknown) (unknown) varenicline (units (un known) date) [VARENICLINE] unknown) AdvReac Severe Paranoia Verified 02/08/22 08:38 (unknown) (no (unknown) (unknown) was discharged (units (unknown) date) from the hospital unknown) yesterday after having lumbar fusion he during (unknown) (no (unknown) (unknown) was is strongly (units (unknown) date) encouraged that unknown) you stay to get placed in a rehab facility so (unknown) (no (unknown) (unknown) wave inversions (units (unknown) date) unknown) (unknown) (no (unknown) (unknown) will need to be (units (unknown) date) through your unknown) provider. Result panel 132 (unknown) (no date) (unknown) (unknown) (no value) (units (un known) unknown) (unknown) (no date) (unknown) (unknown) NO GROWTH (units (unk nown) AFTER 72 unknown) HOURS Result panel 133 (unknown) (no date) (unknown) (unknown) (no value) (units (un known) unknown) (unknown) (no date) (unknown) (unknown) NO GROWTH (units (unk nown) AFTER 24 unknown) HOURS Result panel 134 (unknown) (no date) (unknown) (unknown) (no value) (units (un known) unknown) (unknown) (no date) (unknown) (unknown) NO GROWTH (units (unk nown) AFTER 24 unknown) HOURS Result panel 135 (unknown) (no date) (unknown) (unknown) (no value) (units (un known) unknown) (unknown) (no date) (unknown) (unknown) NO GROWTH (units (unk nown) AFTER 4 DAYS unknown) Result panel 136 (unknown) (no date) (unknown) (unknown) NO GROWTH (units (unk nown) AFTER 48 unknown) HOURS (unknown) (no date) (unknown) (unknown) (no value) (units (un known) unknown) Result panel 137 (unknown) (no date) (unknown) (unknown) NO GROWTH (units (unk nown) AFTER 48 unknown) HOURS (unknown) (no date) (unknown) (unknown) (no value) (units (un known) unknown) Result panel 138 (unknown) (no date) (unknown) (unknown) (no value) (units (un known) unknown) (unknown) (no date) (unknown) (unknown) NO GROWTH (units (unk nown) AFTER 5 DAYS unknown) Result panel 139 (unknown) (no date) (unknown) (unknown) (no value) (units (un known) unknown) (unknown) (no date) (unknown) (unknown) NO GROWTH (units (unk nown) AFTER 5 DAYS unknown) Social History date description facility (no date) Ex-smoker (finding) [facility] Vital Signs date measurement value units +0000 BMI BMI 27.7 kg/m2 [id number]+0000 BP_diastolic BP_diastolic 76 mm[H g] [id number]+0000 BP_systolic BP_systolic 183 mm[Hg] [id number]+0000 heart_rate heart_rate 81 /min [id number]+0000 height_metric height_metric 185.42 cm [id number]+0000 height_standard height_standard 73 in +0000 respiration_rate respiration_rate 18 /min [id number]+0000 temperature_metric temperature_metric 36.56 C +0000 temperature_standard temperature_standard 9 7.8 F [id number]+0000 weight_metric weight_metric 43.21 kg [id number]+0000 weight_standard weight_standard 95.25 lb [id number]+0000 BP_diastolic BP_diastolic 75 mm[H g] [id number]+0000 BP_systolic BP_systolic 159 mm[Hg] [id number]+0000 heart_rate heart_rate 53 /min +0000 respiration_rate respiration_rate 14 /min +0000 temperature_metric temperature_metric 36.83 C +0000 temperature_standard temperature_standard 9 8.3 F +0000 weight_metric weight_metric 43.21 kg +0000 weight_standard weight_standard 95.25 lb +0000 weight_metric weight_metric 39.09 kg +0000 weight_standard weight_standard 86.18 lb +0000 BP_diastolic BP_diastolic 76 mm[H g] +0000 BP_systolic BP_systolic 168 mm[Hg] +0000 heart_rate heart_rate 90 /min +0000 height_metric height_metric 185.42 cm +0000 height_standard height_standard 73 in +0000 respiration_rate respiration_rate 25 /min +0000 temperature_metric temperature_metric 36.56 C +0000 temperature_standard temperature_standard 9 7.8 F +0000 weight_metric weight_metric 39.09 kg +0000 weight_standard weight_standard 86.18 lb +0000 BP_diastolic BP_diastolic 81 mm[H g] +0000 BP_systolic BP_systolic 163 mm[Hg] +0000 heart_rate heart_rate 84 /min +0000 respiration_rate respiration_rate 16 /min +0000 temperature_metric temperature_metric 36.44 C +0000 temperature_standard temperature_standard 9 7.6 F +0000 BMI BMI 28.3 kg/m2 +0000 height_metric height_metric 185.42 cm +0000 height_standard height_standard 73 in +0000 weight_metric weight_metric 44.24 kg [id number]+0000 weight_standard weight_standard 97.52 lb +0000 o2_saturation o2_saturation 87 % +0000 BP_diastolic BP_diastolic 68 mm[H g] +0000 BP_systolic BP_systolic 138 mm[Hg] +0000 heart_rate heart_rate 72 /min +0000 respiration_rate respiration_rate 18 /min +0000 temperature_metric temperature_metric 36.56 C +0000 temperature_standard temperature_standard 9 7.8 F +0000 BMI BMI 28.3 kg/m2 +0000 BP_diastolic BP_diastolic 82 mm[H g] +0000 BP_systolic BP_systolic 181 mm[Hg] +0000 heart_rate heart_rate 12 /min +0000 height_metric height_metric 185.42 cm +0000 height_standard height_standard 73 in +0000 respiration_rate respiration_rate 19 /min +0000 temperature_metric temperature_metric 37.17 C +0000 temperature_standard temperature_standard 9 8.9 F +0000 weight_metric weight_metric 44.24 kg +0000 weight_standard weight_standard 97.52 lb
[2022-02-11 04:11] LABS: BASOPHILS # (AUTO) 0.1 10^3/uL (0.0-0.1); BASOPHILS % (AUTO) 0.6 %; EOSINOPHILS # (AUTO) 0.8 10^3/uL (0.0-0.7); EOSINOPHILS % (AUTO) 8.1 %; HGB - HEMOGLOBIN 11.2 g/dL (14.0-18.0); LYMPHOCYTES # (AUTO) 1.4 10^3/uL (1.5-3.5); LYMPHOCYTES % (AUTO) 13.8 %; MEAN CORPUSCULAR HEMOGLOBIN 31.8 pg (27.0-31.0); MEAN CORPUSCULAR HGB CONC 33.9 g/dL (32.0-36.0); MEAN CORPUSCULAR VOLUME 93.8 fL (80.0-94.0); MEAN PLATELET VOLUME 8.4 fL (7.4-11.4); MONOCYTES # (AUTO) 1.3 10^3/uL (0.0-1.0); MONOCYTES % (AUTO) 13.2 %; NEUTROPHILS # (AUTO) 6.2 10^3/uL (1.5-6.6); NEUTROPHILS % (AUTO) 63.5 %; PLT - PLATELET COUNT 330 10^3/uL (130-450); RED BLOOD COUNT 3.52 10^6/uL (4.70-6.10); RED CELL DISTRIBUTION WIDTH 12.9 % (12.0-15.0); WHITE BLOOD COUNT 9.8 x10^3/uL (4.8-10.8)
--- NOTE | 2022-02-11 04:15 | ED Physician Documentation ---
PD HPI ABD PAIN - Stated complaint Stated Complaint: ABD PAIN/POST SURGERY - Chief complaint Chief Complaint: Abd Pain - History obtained from History obtained from: Patient - Additional information Additional information: Patient is a 77-year-old male presenting for evaluation of abdominal pain that has been present since yesterday. He had a spinal fusion on February 03 at [facility]. He was kept in the hospital for 4 days. Per his , he seemed to have been overmedicated with fentanyl and oxycodone and was very confused during his inpatient stay. He has since been taking Tylenol with codeine. Since yesterday he has been feeling bloated, having increased pain in the abdomen with nausea. He is unable to describe the pain. He reports poor oral intake. No vomiting. He reports a bowel movement yesterday that to him seemed normal.He denies blood in his stools.He reports normal urination. No fever, chest pain or difficulty breathing. Nothing makes the pain better or worse.His next follow-up appointment is February 16 with his spine surgeon. Review of Systems Constitutional: denies: Fever Nose: denies: Congestion Throat: denies: Sore throat Cardiac: denies: Chest pain / pressure, Palpitations Respiratory: denies: Dyspnea, Cough GI: reports: Abdominal Pain, Nausea. denies: Diarrhea, Bloody / black stool : denies: Dysuria, Unable to Void Skin: denies: Rash Musculoskeletal: denies: Extremity pain Neurologic: denies: Headache PD PAST MEDICAL HISTORY - Past Medical History Cardiovascular: Hypertension, Coronary artery disease, [place], Atrial fibrillation, Other Respiratory: Asthma, COPD Neuro: None Endocrine/Autoimmune: None GI: GERD, Hiatal hernia, Diverticulitis : Benign prostate hypertrophy, Nocturia HEENT: Chronic sinusitis, Chronic hearing loss Psych: Depression, Anxiety, Claustrophobia Musculoskeletal: Osteoarthritis, Chronic back pain, Other Derm: Herpes zoster, Other - Past Surgical History Past Surgical History: Yes General: Cholecystectomy, EGD Ortho: Hip replacement, Knee replacement, Arthroscopic surgery, Other Cardiovascular: CABG, Other HEENT: Other - Present Medications Home Medications: Ambulatory Orders Medication Instructions Recorded Confirmed Lorazepam [Ativan] 1 mg PO TID PRN 01/03/17 10/26/20 Levalbuterol Tartrate [Xopenex Hfa] 2 puffs INH Q4H PRN 06/21/17 10/26/20 traZODone [Desyrel] 400 mg PO QPM 06/21/17 10/26/20 Metoprolol Tartrate 50 mg PO DAILY 08/01/17 10/26/20 Sucralfate [Carafate] 1 gm PO ACHS #60 tablet 07/06/19 10/26/20 Ipratropium [Atrovent] 0.5 mg INH Q6H #30 neb 09/08/19 10/26/20 Acetaminophen/Cod 300/30 [Tylenol 1 each PO Q6H PRN #20 tablet 09/28/19 10/26/20 #3] Furosemide 20 mg PO DAILY PRN 07/13/20 10/26/20 Omeprazole 20 mg PO DAILY 07/13/20 10/26/20 Meloxicam [Mobic] 7.5 mg PO BID PRN #20 tablet 08/08/20 10/26/20 Oxycodone HCl/Acetaminophen 1 each PO BID PRN #3 tab 09/12/20 10/26/20 [Percocet 5-325 mg Tablet] Ondansetron Odt [Zofran] 4 mg TL Q6H PRN #10 tablet 10/26/20 tiZANidine [Zanaflex] 4 mg PO Q8H PRN #15 tablet 10/26/20 - Allergies Allergies/Adverse Reactions: Allergies Allergy/AdvReac Type Severity Reaction Status Date / Time pantoprazole sodium * Allergy Intermediate Nausea Verified 02/11/22 03:41 [From Protonix] Tgpeepc-ZYC-UuK Reductase Allergy Intermediate Unknown Verified 02/11/22 03:41 Inhibitor [Ctjxwxo-Tnz-Zaq Reductase Inhibitor] Sulfa (Sulfonamide Allergy Intermediate Rash Verified 02/11/22 03:41 Antibiotics) latex Allergy Mild Itching Verified 02/11/22 03:41 albuterol AdvReac Severe heart Verified 02/11/22 03:41 palpatation diazepam [From Valium] AdvReac Severe DELIRIUM Verified 02/11/22 03:41 hydrocodone [From [place]] AdvReac Anxiety Verified 02/11/22 03:41 morphine AdvReac Anxiety Verified 02/11/22 03:41 - Social History Does the pt smoke?: No Smoking Status: Never smoker Does the pt drink ETOH?: Yes Does the pt have substance abuse?: No - Immunizations Immunizations are current?: Yes - POLST Patient has POLST: No POLST Status: Full Code PD ED PE NORMAL - General General: Alert and oriented X 3, No acute distress, Well developed/nourished - HEENT HEENT: Atraumatic, Moist mucous membranes - Neck Neck: Supple, no meningeal sign - Cardiac Cardiac: RRR, No murmur, Strong equal pulses - Respiratory Respiratory: No respiratory distress, Clear bilaterally - Abdomen Abdomen: Normal bowel sounds, Soft, Other (Protuberant abdomen, mild generalized abdominal tenderness, no rebound, no guarding) - Back Back: Other (4 well-healing incisions with anne-marie, no significant erythema, swelling or abnormal discharge) - Derm Derm: Warm and dry - Extremities Extremities: No edema, Other (Pedal pulses intact) - Neuro Neuro: Normal speech - Psych Psych: Normal mood Results - Vitals Vitals: Vital Signs - 24 hr 02/11/22 02/11/22 02/11/22 03:38 04:36 05:26 Temperature 36 C L 36 C L Heart Rate 83 81 80 Respiratory 18 18 18 Rate Blood Pressure 119/79 132/64 H 153/82 H O2 Saturation 99 94 96 Oxygen O2 Source [With Activity] Room air O2 Source Room air - Labs Labs: Laboratory Tests 02/11/22 02/11/22 03:58 03:58 WBC 9.8 RBC 3.52 L Hgb 11.2 L Hct 33.0 L MCV 93.8 MCH 31.8 H MCHC 33.9 RDW 12.9 Plt Count 330 MPV 8.4 Neut # (Auto) 6.2 Lymph # (Auto) 1.4 L Preston # (Auto) 1.3 H Eos # (Auto) 0.8 H Baso # (Auto) 0.1 Absolute Nucleated RBC 0.00 Nucleated RBC % 0.0 Sodium 133 L Potassium 3.1 L Chloride 95 L Carbon Dioxide 29 Anion Gap 9.0 BUN 14 Creatinine 0.9 Estimated GFR (MDRD) 82 L Glucose 137 H Calcium 8.6 Magnesium 1.7 Total Bilirubin 0.7 AST 27 ALT 32 Alkaline Phosphatase 64 Total Protein 6.7 Albumin 3.3 Globulin 3.4 Albumin/Globulin Ratio 1.0 Lipase 27 PD MEDICAL DECISION MAKING - ED course Complexity details: reviewed results, re-evaluated patient, d/w patient, d/w family ED course: Pt presenting with abdominal pain approximately 1 week post op from lumbar fusion. VSS. Abdomen bloating present but not overly tender. Labs reviewed. Pt with anemia which he reports history of. Mild hypokalemia which was replaced PO. CT without acute findings and pt feeling better in ED. Recommended ensuring close follow up with his surgeon and appropriate bowel regimen given narcotic use. Doubt mesenteric ischemia or aortic pathology. CT ordered without contrast due to global and hospital shortage related to covid pandemic. Departure - Departure Disposition: 01 Home, Self Care Clinical Impression: Abdominal bloating Abdominal pain Qualifiers: Abdominal location: generalized Qualified Code(s): R10.84 - Generalized abdominal pain Condition: Stable Instructions: ED Abdominal Pain Unkn Cause Male Comments: You were evaluated for abdominal pain. The exact cause of your pain is unclear but does not appear to be life-threatening at this time. A CT scan was done and does not show signs of a bowel obstruction, bleeding or infection. Your labs are also reviewed. Your potassium level was slightly low and we did replace this. Your hemoglobin was 11.2 which seems similar to previous visits.Your vital signs here have been stable. Please have close follow-up with your surgeon. Your bloating could be related to excess gas. Please make sure that y ou are on a proper bowel regiment to have regular soft stools as you were still taking a narcotic medication from your surgery.You can consider Gas-X (simethicone) To see if this helps alleviate your bloating sensation. If you have any new or worsening symptoms please return to the emergency department. Discharge Date/Time: 02/11/22 05:35
[2022-02-11 04:20] LABS: ALBUMIN 3.3 g/dL (3.2-5.5); BILIRUBIN,TOTAL 0.7 mg/dL (0.2-1.0); CALCIUM 8.6 mg/dL (8.5-10.3); CREATININE 0.9 mg/dL (0.6-1.2); MAGNESIUM 1.7 mg/dL (1.7-2.8); POTASSIUM 3.1 mmol/L (3.5-5.0); TOTAL PROTEIN 6.7 g/dL (6.7-8.2)
[2022-02-11] MEDS ORDERED: KETOROLAC 30 MG/ML VIAL IVP STA (05:09)
[2022-02-11] MEDS ORDERED: POTASSIUM CHLORIDE 20 MEQ TABLET PO STA (05:14)
[2022-02-11 05:27] VITALS: BP 153/82
--- NOTE | 2022-02-11 13:02 | CT Report ---
PROCEDURE: Abdomen/Pelvis WO INDICATIONS: abd pain/bloating TECHNIQUE: Noncontrast 5 mm thick sections acquired from the diaphragms to the symphysis. 5 mm coronal and sagi ttal reformats were then performed. For radiation dose reduction, the following was used: automated exposure control, adjustment of mA and/or kV according to patient size. COMPARISON: CT abdomen pelvis 07/14/2019 FINDINGS: Image quality: There is limited visualization of the pelvis secondary to artifact from hip arthropla sty. ABDOMEN: Lung bases: Lung bases are clear. Heart size is normal. Solid organs: Liver and spleen are normal in size. Gallbladder has been removed Pancreas is normal in contours. No adrenal nodules. Kidneys are normal in size, without hydronephrosis or nephrolithi asis. Peritoneum and bowel: Unenhanced bowel loops demonstrate normal wall thickness and caliber. No free fluid or air. Colonic diverticula are present without inflammatory change. Nodes and vessels: No retroperitoneal or mesenteric adenopathy by size criteria. Aorta and inferior vena cava are normal in caliber. Miscellaneous: No ventral hernias. PELVIS: Genitourinary: Bladder wall thickness is normal. Miscellaneous: No inguinal hernias or adenopathy. Bones: No suspicious bony lesions. No vertebral body compression fractures. Lumbar fusion is prese nt. IMPRESSION: Diverticulosis. No associated inflammatory change. Reviewed by: Zeina Saavedra MD on 02/11/2022 1:01 PM PDT Approved by: Zeina Saavedra MD on 02/11/2022 1:01 PM PDT Station ID: [id number]
== END 2022-02-11 05:35 | disposition home or self-care (01) ==
LOC: ED 03:28
DX: G89.18 Other acute postprocedural pain (principal); R10.84 Generalized abdominal pain; R14.0 Abdominal distension (gaseous); I10 Essential (primary) hypertension
CPT/HCPCS: 36415; 74176; 80053; 83690; 83735; 85025; 96374; 96375; 99284; A9270

== ENCOUNTER 2022-02-18 14:51 | Emergency (ER) | payer MEDICARE ==
--- NOTE | 2022-02-18 14:56 | ED Physician Documentation ---
PD HPI ALTERED MENTAL STATUS - Stated complaint Stated Complaint: BACK PX/AMS - History obtained from History obtained from: Patient, EMS - Additional information Additional information: 77-year-old gentleman with history of chronic back pain and drug-seeking behavior from personal experience as well as chart review presents after concern for overtaking his medications. He had a back surgery few days ago at [facility] by Dr. Montemayor. He is out of his medications and EMS was summoned because his stated he was altered. That said the patient is here requesting pain medications. Review of Systems Unable to obtain: Confused PD PAST MEDICAL HISTORY - Past Medical History Cardiovascular: Hypertension, Coronary artery disease, [place], Atrial fibrillation, Other Respiratory: Asthma, COPD Neuro: None Endocrine/Autoimmune: None GI: GERD, Hiatal hernia, Diverticulitis : Benign prostate hypertrophy, Nocturia HEENT: Chronic sinusitis, Chronic hearing loss Psych: Depression, Anxiety, Claustrophobia Musculoskeletal: Osteoarthritis, Chronic back pain, Other Derm: Herpes zoster, Other - Past Surgical History Past Surgical History: Yes General: Cholecystectomy, EGD Ortho: Hip replacement, Knee replacement, Arthroscopic surgery, Other Cardiovascular: CABG, Other HEENT: Other - Present Medications Home Medications: Ambulatory Orders Medication Instructions Recorded Confirmed Lorazepam [Ativan] 1 mg PO TID PRN 01/03/17 10/26/20 Levalbuterol Tartrate [Xopenex Hfa] 2 puffs INH Q4H PRN 06/21/17 10/26/20 traZODone [Desyrel] 400 mg PO QPM 06/21/17 10/26/20 Metoprolol Tartrate 50 mg PO DAILY 08/01/17 10/26/20 Sucralfate [Carafate] 1 gm PO ACHS #60 tablet 07/06/19 10/26/20 Ipratropium [Atrovent] 0.5 mg INH Q6H #30 neb 09/08/19 10/26/20 Acetaminophen/Cod 300/30 [Tylenol 1 each PO Q6H PRN #20 tablet 09/28/19 10/26/20 #3] Furosemide 20 mg PO DAILY PRN 07/13/20 10/26/20 Omeprazole 20 mg PO DAILY 07/13/20 10/26/20 Meloxicam [Mobic] 7.5 mg PO BID PRN #20 tablet 08/08/20 10/26/20 Oxycodone HCl/Acetaminophen 1 each PO BID PRN #3 tab 09/12/20 10/26/20 [Percocet 5-325 mg Tablet] Ondansetron Odt [Zofran] 4 mg TL Q6H PRN #10 tablet 10/26/20 tiZANidine [Zanaflex] 4 mg PO Q8H PRN #15 tablet 10/26/20 - Allergies Allergies/Adverse Reactions: Allergies Allergy/AdvReac Type Severity Reaction Status Date / Time pantoprazole sodium * Allergy Intermediate Nausea Verified 02/11/22 03:41 [From Protonix] Heqeisz-LTI-MlW Reductase Allergy Intermediate Unknown Verified 02/11/22 03:41 Inhibitor [Motshlb-Vyg-Ufd Reductase Inhibitor] Sulfa (Sulfonamide Allergy Intermediate Rash Verified 02/11/22 03:41 Antibiotics) latex Allergy Mild Itching Verified 02/11/22 03:41 albuterol AdvReac Severe heart Verified 02/11/22 03:41 palpatation diazepam [From Valium] AdvReac Severe DELIRIUM Verified 02/11/22 03:41 hydrocodone [From [place]] AdvReac Anxiety Verified 02/11/22 03:41 morphine AdvReac Anxiety Verified 02/11/22 03:41 - Social History Does the pt smoke?: No Smoking Status: Never smoker Does the pt drink ETOH?: Yes Does the pt have substance abuse?: No - Immunizations Immunizations are current?: Yes - POLST Patient has POLST: No POLST Status: Full Code PD ED PE NORMAL - Vitals Vital signs reviewed: Yes - General General: Other (He is alert and oriented to person and place but not time or events. He states it is Tuesday and cannot come up with the year. He is sitting up and moving around without evidence of pain.) - HEENT HEENT: Other (Very small pupils) - Neck Neck: Supple, no meningeal sign, No bony TTP - Cardiac Cardiac: RRR, No murmur - Respiratory Respiratory: No respiratory distress, Clear bilaterally - Abdomen Abdomen: Normal bowel sounds, Soft, Non tender - Back Back: No CVA TTP, No spinal TTP - Derm Derm: Normal color, Warm and dry - Extremities Extremities: Other (There are incisions on either side of the lumbar spine that are clean dry and intact without signs of infection.) - Neuro Neuro: No motor deficit, No sensory deficit Eye Opening: Spontaneous Motor: Obeys Commands Verbal: Confused GCS Score: 14 Results - Vitals Vitals: Vital Signs - 24 hr 02/18/22 15:01 Temperature 36.7 C Heart Rate 101 H Respiratory 18 Rate Blood Pressure 166/70 H O2 Saturation 99 Oxygen O2 Source [With Activity] Room air O2 Source Room air - Labs Labs: Laboratory Tests 02/18/22 02/18/22 02/18/22 15:06 15:06 15:06 WBC 7.9 RBC 3.59 L Hgb 11.3 L Hct 33.9 L MCV 94.4 H MCH 31.5 H MCHC 33.3 RDW 12.6 Plt Count 352 MPV 8.2 Neut # (Auto) 5.8 Lymph # (Auto) 0.9 L Nash # (Auto) 0.6 Eos # (Auto) 0.5 Baso # (Auto) 0.1 Absolute Nucleated RBC 0.00 Nucleated RBC % 0.0 Sodium 138 Potassium 4.1 Chloride 101 Carbon Dioxide 27 Anion Gap 10.0 BUN 16 Creatinine 0.7 Estimated GFR (MDRD) 109 Glucose 125 H Calcium 9.2 Total Bilirubin 0.6 AST 24 ALT 20 Alkaline Phosphatase 80 Total Protein 6.5 L Albumin 3.5 Globulin 3.0 Albumin/Globulin Ratio 1.2 Lipase 31 TSH 1.01 Salicylates < 6.0 Acetaminophen < 10 L Ethyl Alcohol < 5.0 PD MEDICAL DECISION MAKING - ED course ED course: 77-year-old gentleman had back surgery per the on February 03. He has been pushing his back surgeon for more medications and had a month worth of oxycodone and lorazepam filled 2 days ago and has taken them all. He presents mildly confused but better than he was at home without the administration of Narcan and cleared over time here. I had a long discussion with the who knows he is an addict and knows he has been overtaking his medications. There are no more narcotics in the house except for some Tylenol [address] Lim which she controls and she does not think he has a problem with. The patient was very pushy for more medications here but was of course not prescribed any more sedative hypnotics or narcotics, he was given a dose of Toradol. He was given a prepack of nasal Narcan to go. Departure - Departure Disposition: 01 Home, Self Care Clinical Impression: Narcotic addiction, Narcotic abuse Condition: Good Record reviewed to determine appropriate education?: Yes Instructions: ED Narcotic Abuse Comments: You may not have any more Tylenol 3 until 6 PM tonight. We are prescribing nasal Narcan in case you should overdose again. You can use it per package instructions should you get somnolent or extra sleepy after taking excessive pain medications which is what you did today. You took 1 month worth of your medicines in the last 2 days. I recommend you not to be on any further narcotics other than what Dr. Lim's prescribing as you are abusing narcotics and have an issue with addiction. Return for new or worsening symptoms. Do not drive.
[2022-02-18] MEDS ORDERED: KETOROLAC 15 MG/ML VIAL IVP STA (15:08)
[2022-02-18 15:11] LABS: BASOPHILS # (AUTO) 0.1 10^3/uL (0.0-0.1); BASOPHILS % (AUTO) 0.6 %; EOSINOPHILS # (AUTO) 0.5 10^3/uL (0.0-0.7); EOSINOPHILS % (AUTO) 6.6 %; HCT - HEMATOCRIT 33.9 % (42.0-52.0); HGB - HEMOGLOBIN 11.3 g/dL (14.0-18.0); LYMPHOCYTES # (AUTO) 0.9 10^3/uL (1.5-3.5); LYMPHOCYTES % (AUTO) 11.2 %; MEAN CORPUSCULAR HEMOGLOBIN 31.5 pg (27.0-31.0); MEAN CORPUSCULAR HGB CONC 33.3 g/dL (32.0-36.0); MEAN CORPUSCULAR VOLUME 94.4 fL (80.0-94.0); MEAN PLATELET VOLUME 8.2 fL (7.4-11.4); MONOCYTES # (AUTO) 0.6 10^3/uL (0.0-1.0); MONOCYTES % (AUTO) 7.6 %; NEUTROPHILS # (AUTO) 5.8 10^3/uL (1.5-6.6); NEUTROPHILS % (AUTO) 73.6 %; PLT - PLATELET COUNT 352 10^3/uL (130-450); RED BLOOD COUNT 3.59 10^6/uL (4.70-6.10); RED CELL DISTRIBUTION WIDTH 12.6 % (12.0-15.0); WHITE BLOOD COUNT 7.9 x10^3/uL (4.8-10.8)
--- OUTSIDE RECORDS SUMMARY | 2022-02-18 15:12 | EXTERNAL MEDICAL SUMMARY RPT | Continuity of Care Document ---
:1945 Author Organization [facility] Address [address] [place] [address] Phone Allergies and Intolerances date description facility type (no date) Mild [facility] (unknown) (no date) Hfutmvj-PWU-DlJ Reductase Inhibitor [facility] pitin (unknown) (no date) Sulfa (Sulfonamide Antibiotics) [facility] (unknown) (no date) buprenorphine [facility] (unknown) (no date) celecoxib [facility] (unknown) (no date) diazepam [facility] (unknown) (no date) fentanyl [facility] (unknown) (no date) hydromorphone [facility] (unknown) (no date) hyoscyamine [facility] (unknown) (no date) latex [facility] (unknown) (no date) morphine [facility] (unknown) (no date) varenicline [facility] (unknown) Encounters No information. Functional Status No information. Immunizations No information. Medications date description facility +0000 Oxycodone Hydrochloride 5 MG Oral [facility] +0000 Oxycodone Hydrochloride 5 MG Oral [facility] +0000 Docusate Sodium 100 MG Oral Capsule I [facility] [id number]+0000 montelukast 10 MG Oral Tablet [facility] [id number]+0000 Prednisone 20 MG Oral Tablet [facility] ospital 88623211166366+0000 Furosemide 40 MG Oral Tablet [facility] ospital 45398739624747+0000 Lisinopril 10 MG Oral Tablet [facility]ital 40395832642577+0000 Albuterol 0.417 MG/ML Inhalant [facility] 44540790123009+0000 Albuterol 0.417 MG/ML Inhalant [facility] 54150053033238+0000 Trazodone Hydrochloride 100 MG Oral [facility] 03271968445397+0000 24 HR metoprolol succinate 100 MG Exte nded [facility] Release Tablet +0000 Clonidine Hydrochloride 0.1 MG Oral [facility] 84832592324440+0000 Acetaminophen 300 MG / Codeine Phospha te 30 [facility] MG Oral Tablet Problems No information. Procedures date description facility + Diagnosis [facility] +0000 Finding [facility] [id number]+0000 [facility] 01436437997149+0000 [facility] 54714590749587+0000 [facility] 14632648146782+0000 [facility] [id number]+0000 [facility] [id number]+0000 [facility] +0000 [facility] Results/Labs test date author facility value unit interpret ation Result panel 1 (unknown) (no (unknown) (unknown) (no value) (units (unk nown) date) unknown) (unknown) (no (unknown) (unknown) [address] [place] [address] (units (unknown) date) unknown) (unknown) (no (unknown) (unknown) [place], [place] (units ( unknown) date) [address] unknown) (unknown) (no (unknown) (unknown) [facility] (units (unknown) date) unknown) (unknown) (no (unknown) [...] (unknown) (unknown) COMPARISON: (units (un known) date) [facility], unknown) CR, XR CHEST 2V, 11/19/2021, 11:23. [...] (unknown) (unknown) Accession Number: (units (unknown) date) [id number] unknown) (unknown) (no (unknown) (unknown) Age/Sex: 76 / M (units (unknown) date) Date of Service: unknown) (unknown) (no (unknown) (unknown) : 1945 (units (unknown) date) Acct:[id number] unknown) (unknown) (no (unknown) (unknown) Loc: ED (units (unkno wn) date) unknown) (unknown) (no (unknown) (unknown) [id number] (units (unk nown) date) unknown) (unknown) (no (unknown) (unknown) Ordering (units (unkno wn) date) Provider: unknown) Sarita Tapia MD (unknown) (no (unknown) (unknown) PROCEDURE: XR (units (unknown) date) CHEST 1V unknown) (unknown) (no (unknown) (unknown) Patient: (units (unkno wn) date) JackelineRadha barnes Gisele unknown) MR#: (unknown) (no (unknown) (unknown) Procedure: XR (units ( unknown) date) chest 1V unknown) (unknown) (no (unknown) (unknown) appear (units (unkno wn) date) unknown) (unknown) (no (unknown) (unknown) present. (units (unkno wn) date) unknown) Result panel 2 (unknown) (no date) (unknown) (unknown) 1.2 % [...] (unknown) 93.2 fL (unkn own) Result panel 3 (unknown) (no date) (unknown) [...] (unknown) 98 mg/dL (unkn own) Result panel 4 (unknown) (no date) (unknown) (unknown) < 0.012 ng/mL (unkn own) (unknown) (no date) (unknown) (unknown) 190 pg/mL (unkn own) (unknown) (no date) (unknown) (unknown) 232 ng/mL (unkn own) Result panel 5 (unknown) (no date) (unknown) (unknown) < 0.012 ng/mL (unkn own) (unknown) (no date) (unknown) (unknown) 0.04 ng/mL (unkn own) (unknown) (no date) (unknown) (unknown) 190 pg/mL (unkn own) Result panel 6 (unknown) (no (unknown) (unknown) [...] unknown) HOURS NEEDED (unknown) (no (unknown) (unknown) [facility] (units (unknown) date) [address] unknown) [place] [address] (unknown) (no (unknown) (unknown) [employer]ERK[employer], (units (unkno [...] unknown) date) unknown) (unknown) (no (unknown) (unknown) [id number] (units (unkn own) date) unknown) (unknown) (no [...] (unknown) Blood Pressure (units (unknown) date) 132/90 04//22 unknown) 14:59 (unknown) (no (unknown) (unknown) Blood [...] unknown) (unknown) (no (unknown) (unknown) Chronic (units ( wn) date) obstructive unknown) pulmonary disease (10/22/16) (unknown) (no (unknown) (unknown) Complete Blood (units (unknown) date) Count AUTO DIFF unknown) Stat (unknown) (no (unknown) (unknown) Comprehensive (units ( unknown) date) Metabolic Panel unknown) Stat (unknown) (no (unknown) (unknown) Coronary artery (units (unknown) date) disease unknown) (unknown) (no (unknown) (unknown) Course (units ( wn) date) unknown) (unknown) (no (unknown) (unknown) Creatinine (units (k ) date) (0.66-1.25) mg/dL unknown) (unknown) (no (unknown) (unknown) Creatinine 0.76 (units (unknown) date) (0.66-1.25) unknown) mg/dL (unknown) (no (unknown) (unknown) D Dimer Stat (units (u nknown) date) unknown) (unknown) (no (unknown) (unknown) D-Dimer (units ( wn) date) (<230) ng/mL unknown) (unknown) (no (unknown) (unknown) D-Dimer 232 H (units (unknown) date) (<230) ng/mL unknown) (unknown) (no (unknown) (unknown) : 1945 (units (unknown) date) Acct:[id number] unknown) (unknown) (no (unknown) (unknown) Kimmy Gomez, (units (unknown) date) [Primary Care unknown) Provider] - (unknown) (no (unknown) (unknown) Departure (units ( own) date) unknown) (unknown) (no (unknown) (unknown) Discharge Plan (units (unknown) date) unknown) (unknown) (no (unknown) (unknown) Discontinued (units (u n) date) Medications unknown) (unknown) (no (unknown) (unknown) [...] (unknown) Lymph # (Auto) (units (unknown) date) (5071-4896) /uL unknown) (unknown) (no (unknown) (unknown) Lymph # (Auto) (units (unknown) date) 1700 unknown) (5298-6484) /uL (unknown) (no (unknown) (unknown) Lymph % [...] 11/19/21 unknown) @ 13:21 by Frida Pruitt [facility]) (unknown) (no (unknown) (unknown) Mode of arrival: (units (unknown) date) Wheelchair unknown) (unknown) (no (unknown) (unknown) [place] # (Auto) (units ( unknown) date) (0-900) /uL unknown) (unknown) (no (unknown) (unknown) [place] # (Auto) (units ( unknown) date) 700 (0-900) unknown) /uL (unknown) (no (unknown) (unknown) [place] % (Auto) (units ( unknown) date) (3-14) % unknown) (unknown) (no (unknown) (unknown) [place] % (Auto) (units ( unknown) date) 9.7 [...] Neut # (Auto) (units ( unknown) date) (0425-5175) /uL unknown) (unknown) (no (unknown) (unknown) Neut # (Auto) (units ( unknown) date) 4000 unknown) (9180-5533) /uL (unknown) (no (unknown) (unknown) Neut % [...] (unknown) (unknown) Patient: (units (unkno wn) date) JackelineRadha pike unknown) MR#: M (unknown) (no (unknown) [...] by to come (unknown) (no (unknown) (unknown) Ojtumia-ZRT-MrE (units (unknown) date) Reductase AdvReac unknown) Mild [...] Not Available] unknown) (unknown) (no (unknown) (unknown) [RSRKNIU-RPO-DMK (units (unknown) date) REDUCTASE unknown) (unknown) (no [...] unknown) Vitamins) 1 tab PO DAILY #0 17 10/08/21 (unknown) (no (unknown) (unknown) oxycodone 5 [...] Severe Paranoia Verified 11/28/21 15:33 Result panel 7 (unknown) (no (unknown) (unknown) [...] (unknown) (unknown) Documented by: (units (unknown) date) RELLN unknown) (unknown) (no (unknown) (unknown) ED Orders (units (unkn own) date) unknown) (unknown) (no (unknown) (unknown) EXPOSURE (units (unkno wn) date) unknown) (unknown) (no (unknown) (unknown) Emergency Report (units (unknown) date) unknown) (unknown) (no (unknown) (unknown) Home Medications (units (unknown) date) unknown) (unknown) (no (unknown) (unknown) INHALE 1 VIAL PER (units (unknown) date) NEBULIZER EVERY 6 unknown) HOURS NEEDED (unknown) (no (unknown) (unknown) [facility] (units (unknown) date) [address] [place] [address] unknown) [place] [address] (unknown) (no (unknown) (unknown) [employer], (units (unkno [...] unknown) date) unknown) (unknown) (no (unknown) (unknown) [id number] (units (unkn own) date) unknown) (unknown) (no [...] (unknown) Blood Pressure (units (unknown) date) 132/90 04//22 unknown) 14:59 (unknown) (no (unknown) (unknown) Blood [...] unknown) (unknown) (no (unknown) (unknown) Chronic (units ( wn) date) obstructive unknown) pulmonary disease (10/22/16) (unknown) (no (unknown) (unknown) Complete Blood (units (unknown) date) Count AUTO DIFF unknown) Stat (unknown) (no (unknown) (unknown) Comprehensive (units ( unknown) date) Metabolic Panel unknown) Stat (unknown) (no (unknown) (unknown) Coronary artery (units (unknown) date) disease unknown) (unknown) (no (unknown) (unknown) Course (units ( wn) date) unknown) (unknown) (no (unknown) (unknown) Creatinine (units () date) (0.66-1.25) mg/dL unknown) (unknown) (no (unknown) (unknown) Creatinine 0.76 (units (unknown) date) (0.66-1.25) unknown) mg/dL (unknown) (no (unknown) (unknown) D Dimer Stat (units (u wn) date) unknown) (unknown) (no (unknown) (unknown) D-Dimer (units ( wn) date) (<230) ng/mL unknown) (unknown) (no (unknown) (unknown) D-Dimer 232 H (units (unknown) date) (<230) ng/mL unknown) (unknown) (no (unknown) (unknown) : 1945 (units (unknown) date) Acct:[id number] unknown) (unknown) (no (unknown) (unknown) Kimmy Gomez, (units (unknown) date) [Primary Care unknown) Provider] - (unknown) (no (unknown) (unknown) Departure (units (unkn own) date) unknown) (unknown) (no (unknown) (unknown) Discharge Plan (units (unknown) date) unknown) (unknown) (no (unknown) (unknown) Discontinued (units (u ) date) Medications unknown) (unknown) (no (unknown) (unknown) [...] (unknown) Lymph # (Auto) (units (unknown) date) (5613-1797) /uL unknown) (unknown) (no (unknown) (unknown) Lymph # (Auto) (units (unknown) date) 1700 unknown) (8068-1807) /uL (unknown) (no (unknown) (unknown) Lymph % [...] 11/19/21 unknown) @ 13:21 by Frida Pruitt [facility]) (unknown) (no (unknown) (unknown) Mode of arrival: (units (unknown) date) Wheelchair unknown) (unknown) (no (unknown) (unknown) [place] # (Auto) (units ( unknown) date) (0-900) /uL unknown) (unknown) (no (unknown) (unknown) [place] # (Auto) (units ( unknown) date) 700 (0-900) unknown) /uL (unknown) (no (unknown) (unknown) [place] % (Auto) (units ( unknown) date) (3-14) % unknown) (unknown) (no (unknown) (unknown) [place] % (Auto) (units ( unknown) date) 9.7 [...] Neut # (Auto) (units ( unknown) date) (1907-0742) /uL unknown) (unknown) (no (unknown) (unknown) Neut # (Auto) (units ( unknown) date) 4000 unknown) (7397-5365) /uL (unknown) (no (unknown) (unknown) Neut % [...] (unknown) (unknown) Patient: (units (unkno wn) date) Radha Peraza Gisele unknown) MR#: M (unknown) (no (unknown) [...] by to come (unknown) (no (unknown) (unknown) Bgknaef-HUN-AmE (units (unknown) date) Reductase AdvReac unknown) Mild [...] Not Available] unknown) (unknown) (no (unknown) (unknown) [SEDJLFG-PKL-VXE (units (unknown) date) REDUCTASE unknown) (unknown) (no [...] benefited with unknown) Augmentin and steroids. 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 (unknown) (no (unknown) (unknown) household (units [...] unknown) Vitamins) 1 tab PO DAILY #0 12/20/10/08/21 (unknown) (no (unknown) (unknown) oxycodone 5 mg [...] Severe Paranoia Verified 11/28/21 15:33 Result panel 8 (unknown) (no date) (unknown) (unknown) 0.9 mmol/L (unkn own) Result panel 9 (unknown) (no date) (unknown) (unknown) Not Detected (units ( unknown) unknown) (unknown) (no date) (unknown) (unknown) Not Detected (units ( unknown) unknown) Result panel 10 (unknown) (no (unknown) (unknown) [...] unknown) HOURS NEEDED (unknown) (no (unknown) (unknown) [facility] (units (unknown) date) [address] unknown) [place] [address] (unknown) (no (unknown) (unknown) [place]ERK[place], (units (unkno [...] unknown) date) unknown) (unknown) (no (unknown) (unknown) [id number] (units (unkn own) date) unknown) (unknown) (no [...] (unknown) (unknown) : 1945 (units (unknown) date) Acct:[id number] unknown) (unknown) (no (unknown) (unknown) Kimmy Gomez [...] (unknown) ER Physician: (units ( unknown) date) Laursen,Sarita L MD unknown) (unknown) (no (unknown) (unknown) Entero/Rhino [...] (unknown) Lymph # (Auto) (units (unknown) date) (1009-5707) /uL unknown) (unknown) (no (unknown) (unknown) Lymph # (Auto) (units (unknown) date) (8687-7515) /uL unknown) (unknown) (no (unknown) (unknown) Lymph # (Auto) (units (unknown) date) 1700 (0128-9314) unknown) /uL (unknown) (no (unknown) (unknown) Lymph [...] 11/19/21 @ unknown) 13:21 by Frida Pruitt [facility]) (unknown) (no (unknown) (unknown) Methylprednisolone (units (unknown) date) (Methylprednisolone unknown) 125 Mg/2 Ml Vial) 125 mg IV NOW ONE (unknown) (no (unknown) (unknown) Mode of arrival: (units (unknown) date) Wheelchair unknown) (unknown) (no (unknown) (unknown) [place] # (Auto) (units ( unknown) date) (0-900) /uL unknown) (unknown) (no (unknown) (unknown) [place] # (Auto) (units ( unknown) date) (0-900) /uL unknown) (unknown) (no (unknown) (unknown) [place] # (Auto) 700 (unit s (unknown) date) (0-900) /uL unknown) (unknown) (no (unknown) (unknown) [place] % (Auto) (units ( unknown) date) (3-14) % unknown) (unknown) (no (unknown) (unknown) [place] % (Auto) (units ( unknown) date) (3-14) % unknown) (unknown) (no (unknown) (unknown) [place] % (Auto) 9.7 (unit s (unknown) date) [...] Neut # (Auto) (units ( unknown) date) (4625-0301) /uL unknown) (unknown) (no (unknown) (unknown) Neut # (Auto) (units ( unknown) date) (6963-5550) /uL unknown) (unknown) (no (unknown) (unknown) Neut # (Auto) (units ( unknown) date) 4000 (4838-2049) unknown) /uL (unknown) (no (unknown) (unknown) Neut [...] (unknown) (unknown) Patient: (units (unkno wn) date) Radha Peraza Gisele unknown) MR#: M (unknown) (no (unknown) [...] 11/19/21 @ unknown) 13:21 by Frida Pruitt [facility]) (unknown) (no (unknown) (unknown) Sodium (units (unkno [...] by to come (unknown) (no (unknown) (unknown) Nxuawhn-PFR-OhX (units (unknown) date) Reductase AdvReac unknown) Mild WEAK Verified 11/28/21 15:33 (unknown) (no (unknown) (unknown) Substance Use Type: (unit s (unknown) date) does not use unknown) (unknown) (no (unknown) (unknown) Sulfa (Sulfonamide (units (unknown) date) Allergy Mild RASH unknown) Verified 11/28/21 15:33 (unknown) (no (unknown) (unknown) Surgical History (units (unknown) date) (Reviewed 11/19/21 @ unknown) 13:21 by Frida Pruitt [facility]) (unknown) (no (unknown) (unknown) Surgical changes (units [...] date) Available] unknown) (unknown) (no (unknown) (unknown) [JLSDYBY-EPD-VUD (units (unknown) date) REDUCTASE unknown) (unknown) (no [...] date) with Augmentin and unknown) steroids. 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 (unknown) (no (unknown) (unknown) household members: [...] Severe Paranoia Verified 11/28/21 15:33 Result panel 11 (unknown) (no (unknown) (unknown) [...] unknown) HOURS NEEDED (unknown) (no (unknown) (unknown) [facility] (units (unknown) date) [address] unknown) [place] [address] (unknown) (no (unknown) (unknown) [place]ERK[place], (units (unkno [...] unknown) date) unknown) (unknown) (no (unknown) (unknown) [id number] (units (unkn own) date) unknown) (unknown) (no [...] (unknown) (unknown) : 1945 (units (unknown) date) Acct:[id number] unknown) (unknown) (no (unknown) (unknown) Kimmy Gomez [...] (unknown) date) unknown) (unknown) (no (unknown) (unknown) [place] (units (unkno wn) date) unknown) (unknown) (no [...] (unknown) Lymph # (Auto) (units (unknown) date) (6481-6757) /uL unknown) (unknown) (no (unknown) (unknown) Lymph # (Auto) (units (unknown) date) (8972-5461) /uL unknown) (unknown) (no (unknown) (unknown) Lymph # (Auto) (units (unknown) date) 1700 (0749-7551) unknown) /uL (unknown) (no (unknown) (unknown) Lymph [...] date) Wheelchair unknown) (unknown) (no (unknown) (unknown) [place] # (Auto) (units ( unknown) date) (0-900) /uL unknown) (unknown) (no (unknown) (unknown) [place] # (Auto) (units ( unknown) date) (0-900) /uL unknown) (unknown) (no (unknown) (unknown) [place] # (Auto) 700 (unit s (unknown) date) (0-900) /uL unknown) (unknown) (no (unknown) (unknown) [place] % (Auto) (units ( unknown) date) (3-14) % unknown) (unknown) (no (unknown) (unknown) [place] % (Auto) (units ( unknown) date) (3-14) % unknown) (unknown) (no (unknown) (unknown) [place] % (Auto) 9.7 (unit s (unknown) date) [...] Neut # (Auto) (units ( unknown) date) (6798-8710) /uL unknown) (unknown) (no (unknown) (unknown) Neut # (Auto) (units ( unknown) date) (2558-4179) /uL unknown) (unknown) (no (unknown) (unknown) Neut # (Auto) (units ( unknown) date) 4000 (1138-0589) unknown) /uL (unknown) (no (unknown) (unknown) Neut [...] (unknown) (unknown) Patient: (units (unkno wn) date) Radha Peraza Gisele unknown) MR#: M (unknown) (no (unknown) [...] by to come (unknown) (no (unknown) (unknown) Iyuzzet-GVB-VdV (units (unknown) date) Reductase AdvReac unknown) Mild [...] date) have been unknown) electronically transmitted to [facility] (unknown) (no (unknown) (unknown) Time Seen by [...] date) Available] unknown) (unknown) (no (unknown) (unknown) [WXEUXOX-WJT-MBU (units (unknown) date) REDUCTASE unknown) (unknown) (no [...] date) with Augmentin and unknown) steroids. 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 (unknown) (no (unknown) (unknown) heart failure [...] albuterol that he does have Result panel 12 (unknown) (no (unknown) (unknown) (no value) (units (unk nown) date) unknown) (unknown) (no (unknown) (unknown) [address] [place] [address] (units (unknown) date) unknown) (unknown) (no (unknown) (unknown) [place], [place] (units ( unknown) date) [address] unknown) (unknown) (no (unknown) (unknown) CT Scan Report (units (unknown) date) unknown) (unknown) (no (unknown) (unknown) [facility] (units (unknown) date) unknown) (unknown) (no (unknown) [...] (unknown) Approved by: (units (u nknown) date) dinorah Monsivais) Clifford on 12/07/2021 at 21:48 (unknown) (no [...] (unknown) (unknown) COMPARISON: (units (un known) date) [facility], unknown) CT, CT CERVICAL SPINE WO [facility], 04/16/2021, 12:21. (unknown) (no (unknown) (unknown) COMPARISON: (units (un known) date) [facility], unknown) CT, CT HEAD/BRAIN WO [facility], 04/16/2021, 12:21. (unknown) (no (unknown) (unknown) CSF spaces: (units (un known) date) Basal cisterns are unknown) patent. The ventricles are symmetric in size (unknown) (no (unknown) (unknown) Dictated by: (units (u nknown) date) Maxim Valadez, unknown) Clifford on 12/07/2021 at 21:42 (unknown) (no (unknown) (unknown) Dictated by: (units (u nknown) date) Maxim Valadez unknown) Clifford on 12/07/2021 at 21:44 (unknown) [...] unknown) (unknown) (no (unknown) (unknown) size. (units (o wn) date) unknown) (unknown) (no [...] (no (unknown) (unknown) within the (units (unk n) date) visualized left unknown) maxillary sinus suggesting sequelae of chronic (unknown) (no (unknown) (unknown) ACDF at (units (o wn) date) unknown) (unknown) (no (unknown) (unknown) Accession Number: (units (unknown) date) [id number] unknown) (unknown) (no (unknown) (unknown) Accession Number: (units (unknown) date) [id number] unknown) (unknown) (no (unknown) (unknown) Age/Sex: 76 / M (units (unknown) date) Date of Service: unknown) (unknown) (no (unknown) (unknown) : 1945 (units (unknown) date) Acct:[id number] unknown) (unknown) (no (unknown) (unknown) Loc: ED (units (o wn) date) unknown) (unknown) (no (unknown) (unknown) [id number] (units (unk nown) date) unknown) (unknown) (no (unknown) (unknown) Ordering (units (o wn) date) Provider: unknown) Jung Dejesus D.O. (unknown) (no (unknown) (unknown) PROCEDURE: CT (units (unknown) date) CERVICAL SPINE WO unknown) CON (unknown) (no (unknown) (unknown) PROCEDURE: CT (units (unknown) date) HEAD/BRAIN WO CON unknown) (unknown) (no (unknown) (unknown) Patient: (units (unkno wn) date) Radha Peraza D unknown) MR#: (unknown) (no (unknown) (unknown) Procedure: [...] (units (unkno wn) date) unknown) Result panel 13 (unknown) (no date) (unknown) (unknown) 0.8 % [...] (unknown) 93.3 fL (unkn own) Result panel 14 (unknown) (no date) (unknown) (unknown) > 60 [...] (unknown) 8.4 mg/dL (unkn own) Result panel 15 (unknown) (no date) (unknown) (unknown) < 1.0 mg/dL (unkn own) (unknown) (no date) (unknown) (unknown) < 10 ug/mL (unkn own) Result panel 16 (unknown) (no date) (unknown) (unknown) Negative (units (unkn own) unknown) Result panel 17 (unknown) (no date) (unknown) (unknown) 2.07 uIU/mL (unkn own) Result panel 18 (unknown) (no date) (unknown) (unknown) 0.2 E.U./dL [...] YELLOW (units (unkn own) unknown) Result panel 19 (unknown) (no date) (unknown) (unknown) 0-1 /HPF [...] YELLOW (units (unkn own) unknown) Result panel 20 (unknown) (no (unknown) [...] unknown) HOURS NEEDED (unknown) (no (unknown) (unknown) [facility] (units (unknown) date) [address] [place] [address] unknown) [place] [address] (unknown) (no (unknown) (unknown) JERKING, (units (unkno [...] unknown) date) unknown) (unknown) (no (unknown) (unknown) [id number] (units (unkn own) date) unknown) (unknown) (no [...] (unknown) (unknown) : 1945 (units (unknown) date) Acct:[id number] unknown) (unknown) (no (unknown) (unknown) Kimmy Gomez [...] of aortic (units (unknown) date) dissection unknown) (-08/2007) (unknown) (no (unknown) (unknown) 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 (unknown) [...] (unknown) Lymph # (Auto) (units (unknown) date) (5626-6633) /uL unknown) (unknown) (no (unknown) (unknown) Lymph # (Auto) (units (unknown) date) (6136-2420) /uL unknown) (unknown) (no (unknown) (unknown) Lymph # (Auto) (units (unknown) date) 1700 (9145-1378) unknown) /uL (unknown) (no (unknown) (unknown) Lymph [...] date) EMS unknown) (unknown) (no (unknown) (unknown) [place] # (Auto) (units ( unknown) date) (0-900) /uL unknown) (unknown) (no (unknown) (unknown) [place] # (Auto) (units ( unknown) date) (0-900) /uL unknown) (unknown) (no (unknown) (unknown) [place] # (Auto) 700 (units (unknown) date) (0-900) /uL unknown) (unknown) (no (unknown) (unknown) [place] % (Auto) (units ( unknown) date) (3-14) % unknown) (unknown) (no (unknown) (unknown) [place] % (Auto) (units ( unknown) date) (3-14) % unknown) (unknown) (no (unknown) (unknown) [place] % (Auto) 9.5 (units (unknown) date) (3-14) % unknown) (unknown) (no (unknown) (unknown) Mother (units (unknown) date) Stroke unknown) (unknown) (no (unknown) (unknown) Narcotic (units (unkno wn) date) dependence unknown) (unknown) (no (unknown) (unknown) Neck pain, chronic (units (unknown) date) unknown) (unknown) (no (unknown) (unknown) Neut # (Auto) (units ( unknown) date) (2965-0807) /uL unknown) (unknown) (no (unknown) (unknown) Neut # (Auto) (units ( unknown) date) (2126-4677) /uL unknown) (unknown) (no (unknown) (unknown) Neut # (Auto) (units ( unknown) date) 4800 (0901-5671) unknown) /uL (unknown) (no (unknown) (unknown) Neut [...] (unknown) (unknown) Patient: (units (unkno wn) date) Radha Peraza unknown) MR#: M (unknown) (no (unknown) (unknown) [...] Back Pain unknown) (unknown) (no (unknown) (unknown) Cdffink-GLG-GiD (units (unknown) date) Reductase AdvReac unknown) Mild [...] (unknown) Ur Specific (units (un known) date) [place] unknown) (1.000-1.035) (unknown) (no (unknown) (unknown) Ur Specific (units (un known) date) [place] 1.020 unknown) (1.000-1.035) (unknown) (no (unknown) (unknown) Ur Specific (units (un known) date) [place] unknown) (1.000-1.035) (unknown) (no (unknown) (unknown) Ur [...] Not Available] unknown) (unknown) (no (unknown) (unknown) [YBWVUIM-CSJ-OCM (units (unknown) date) REDUCTASE unknown) (unknown) (no [...] #0 17 10/08/21 (unknown) (no (unknown) (unknown) oxycodone 5 [...] 11/28/21 15:33 Result panel 21 (unknown) (no date) (unknown) (unknown) 1.5 mmol/L (unkn own) Result panel 22 (unknown) (no (unknown) (unknown) [...] 14 0RF (unknown) (no (unknown) (unknown) [address] [place] [address] (units (unknown) date) unknown) (unknown) (no (unknown) [...] date) unknown) (unknown) (no (unknown) (unknown) [place] (units ( unknown) date) [address] unknown) (unknown) (no (unknown) (unknown) CT Scan [...] unknown) HOURS NEEDED (unknown) (no (unknown) (unknown) [facility] (units (unknown) date) unknown) (unknown) (no (unknown) (unknown) [facility] (units (unknown) date) [address] unknown) [place] [address] (unknown) (no (unknown) (unknown) JERKING, (units (unkno [...] wn) date) unknown) (unknown) (no (unknown) (unknown) [id number] (units (unkn own) date) unknown) (unknown) (no [...] wn) date) unknown) (unknown) (no (unknown) (unknown) 04/23/22 (units (unkno wn) date) unknown) (unknown) (no [...] (unknown) (unknown) Accession Number: (units (unknown) date) [id number] ?? unknown) (unknown) (no (unknown) (unknown) Accession Number: (units (unknown) date) [id number] ?? unknown) (unknown) (no (unknown) (unknown) Acct:[id number] (units (unknown) date) unknown) (unknown) (no (unknown) [...] (unknown) (unknown) COMPARISON:? (units (u nknown) date) [facility], unknown) CT, CT CERVICAL SPINE WO CON, 04/16/2021, 12:21. (unknown) (no (unknown) (unknown) COMPARISON:? (units (u nknown) date) [facility], unknown) CT, CT HEAD/BRAIN WO CON, 04/16/2021, [...] (unknown) (unknown) : 1945 (units (unknown) date) Acct:[id number] unknown) (unknown) (no (unknown) (unknown) : 1945 [...] date) cardiomyopathy unknown) (unknown) (no (unknown) (unknown) [place] (units (unknown) date) unknown) (unknown) (no (unknown) [...] (unknown) Lymph # (Auto) (units (unknown) date) (7444-4615) /uL unknown) (unknown) (no (unknown) (unknown) Lymph # (Auto) (units (unknown) date) (7891-8967) /uL unknown) (unknown) (no (unknown) (unknown) Lymph # (Auto) (units (unknown) date) 1700 (8141-0846) unknown) /uL (unknown) (no (unknown) (unknown) Lymph [...] date) unknown) (unknown) (no (unknown) (unknown) MR#: [id number] (units (unknown) date) unknown) (unknown) (no (unknown) (unknown) MUSCULOSKELETAL: (units (unknown) date) See HPI unknown) (unknown) (no (unknown) (unknown) Medical History (units (unknown) date) (Reviewed 12/08/21 unknown) @ 01:57 by Jung Dejesus DO) (unknown) (no (unknown) (unknown) Cheryl Husain (units (unknown) date) unknown) (unknown) (no (unknown) (unknown) Mode of arrival: (units (unknown) date) EMS unknown) (unknown) (no (unknown) (unknown) [place] # (Auto) (units ( unknown) date) (0-900) /uL unknown) (unknown) (no (unknown) (unknown) [place] # (Auto) (units ( unknown) date) (0-900) /uL unknown) (unknown) (no (unknown) (unknown) [place] # (Auto) 700 (units (unknown) date) (0-900) /uL unknown) (unknown) (no (unknown) (unknown) [place] % (Auto) (units ( unknown) date) (3-14) % unknown) (unknown) (no (unknown) (unknown) [place] % (Auto) (units ( unknown) date) (3-14) % unknown) (unknown) (no (unknown) (unknown) [place] % (Auto) 9.5 (units (unknown) date) (3-14) [...] Neut # (Auto) (units ( unknown) date) (1892-3465) /uL unknown) (unknown) (no (unknown) (unknown) Neut # (Auto) (units ( unknown) date) (3726-2958) /uL unknown) (unknown) (no (unknown) (unknown) Neut # (Auto) (units ( unknown) date) 4800 (5806-6661) unknown) /uL (unknown) (no (unknown) (unknown) Neut [...] (unknown) (unknown) Patient: (units (unkno wn) date) Radha Peraza unknown) MR#: M (unknown) (no (unknown) (unknown) Patient: (units (unkno wn) date) Radha Peraza unknown) (unknown) (no (unknown) (unknown) Maxim Valadez [...] wheezing, hemoptysis, sputum. (unknown) (no (unknown) (unknown) Radha Peraza (units (unknown) date) D??76??M?? unknown) 5 (unknown) [...] Back Pain unknown) (unknown) (no (unknown) (unknown) Xcikrfl-LCB-IzA (units (unknown) date) Reductase AdvReac unknown) Mild [...] (unknown) Ur Specific (units (un known) date) [place] unknown) (1.000-1.035) (unknown) (no (unknown) (unknown) Ur Specific (units (un known) date) [place] 1.020 unknown) (1.000-1.035) (unknown) (no (unknown) (unknown) Ur Specific (units (un known) date) [place] unknown) (1.000-1.035) (unknown) (no (unknown) (unknown) Ur [...] Not Available] unknown) (unknown) (no (unknown) (unknown) [FNJOQFK-NOF-NLR (units (unknown) date) REDUCTASE unknown) (unknown) (no [...] (unknown) buprenorphine, (units (unknown) date) hyoscyamine, unknown) Ivlzain-FDY-AyG Reductase Inhibitor, diazepam (unknown) (no (unknown) (unknown) [...] hypertrophy or exudate. Airway patent. Result panel 23 (unknown) (no (unknown) (unknown) (no value) (units [...] own) date) unknown) (unknown) (no (unknown) (unknown) [place], [place] (units ( unknown) date) [address] unknown) (unknown) (no (unknown) (unknown) CT Scan [...] unknown) HOURS NEEDED (unknown) (no (unknown) (unknown) [facility] (units (unknown) date) unknown) (unknown) (no (unknown) (unknown) [facility] (units (unknown) date) [address] [place] [address] unknown) [place] [address] (unknown) (no (unknown) (unknown) JERKING, (units (unkno [...] wn) date) unknown) (unknown) (no (unknown) (unknown) [id number] (units (unkn own) date) unknown) (unknown) (no [...] (unknown) (unknown) Accession Number: (units (unknown) date) [id number] ?? unknown) (unknown) (no (unknown) (unknown) Accession Number: (units (unknown) date) [id number] ?? unknown) (unknown) (no (unknown) (unknown) Acct:[id number] (units (unknown) date) unknown) (unknown) (no (unknown) [...] (unknown) (unknown) COMPARISON:? (units (u nknown) date) [facility], unknown) CT, CT CERVICAL SPINE WO CON, 04/16/2021, 12:21. (unknown) (no (unknown) (unknown) COMPARISON:? (units (u nknown) date) [facility], unknown) CT, CT HEAD/BRAIN WO CON, 04/16/2021, [...] (unknown) (unknown) : 1945 (units (unknown) date) Acct:[id number] unknown) (unknown) (no (unknown) (unknown) : 1945 [...] (unk nown) date) incision and unknown) drainage (-2017) (unknown) (no (unknown) (unknown) History of prior [...] date) cardiomyopathy unknown) (unknown) (no (unknown) (unknown) [place] (units (unknown) date) unknown) (unknown) (no (unknown) [...] (unknown) Lymph # (Auto) (units (unknown) date) (6128-8061) /uL unknown) (unknown) (no (unknown) (unknown) Lymph # (Auto) (units (unknown) date) (8373-8299) /uL unknown) (unknown) (no (unknown) (unknown) Lymph # (Auto) (units (unknown) date) 1700 (7117-0640) unknown) /uL (unknown) (no (unknown) (unknown) Lymph [...] date) unknown) (unknown) (no (unknown) (unknown) MR#: [id number] (units (unknown) date) unknown) (unknown) (no (unknown) (unknown) MUSCULOSKELETAL: (units (unknown) date) See HPI unknown) (unknown) (no (unknown) (unknown) Medical History (units (unknown) date) (Reviewed 12/08/21 unknown) @ 01:57 by Jung Dejesus DO) (unknown) (no (unknown) (unknown) Cheryl Husain (units (unknown) date) unknown) (unknown) (no (unknown) (unknown) Mode of arrival: (units (unknown) date) EMS unknown) (unknown) (no (unknown) (unknown) [place] # (Auto) (units ( unknown) date) (0-900) /uL unknown) (unknown) (no (unknown) (unknown) [place] # (Auto) (units ( unknown) date) (0-900) /uL unknown) (unknown) (no (unknown) (unknown) [place] # (Auto) 700 (units (unknown) date) (0-900) /uL unknown) (unknown) (no (unknown) (unknown) [place] % (Auto) (units ( unknown) date) (3-14) % unknown) (unknown) (no (unknown) (unknown) [place] % (Auto) (units ( unknown) date) (3-14) % unknown) (unknown) (no (unknown) (unknown) [place] % (Auto) 9.5 (units (unknown) date) (3-14) [...] Neut # (Auto) (units ( unknown) date) (2007-8112) /uL unknown) (unknown) (no (unknown) (unknown) Neut # (Auto) (units ( unknown) date) (7661-7634) /uL unknown) (unknown) (no (unknown) (unknown) Neut # (Auto) (units ( unknown) date) 4800 (0847-1328) unknown) /uL (unknown) (no (unknown) (unknown) Neut [...] (unknown) (unknown) Patient: (units (unkno wn) date) Radha Peraza unknown) MR#: M (unknown) (no (unknown) (unknown) Patient: (units (unkno wn) date) Radha Peraza [place] unknown) (unknown) (no (unknown) (unknown) Maxim Valadez [...] wheezing, hemoptysis, sputum. (unknown) (no (unknown) (unknown) Radha Peraza (units (unknown) date) D??76??M?? unknown) 5 (unknown) [...] Back Pain unknown) (unknown) (no (unknown) (unknown) Dqxdoih-IQG-IdK (units (unknown) date) Reductase AdvReac unknown) Mild [...] (unknown) Ur Specific (units (un known) date) [place] unknown) (1.000-1.035) (unknown) (no (unknown) (unknown) Ur Specific (units (un known) date) [place] unknown) (1.000-1.035) (unknown) (no (unknown) (unknown) Ur Specific (units (un known) date) [place] 1.020 unknown) (1.000-1.035) (unknown) (no (unknown) (unknown) [...] Not Available] unknown) (unknown) (no (unknown) (unknown) [ZAPJARE-OSW-ART (units (unknown) date) REDUCTASE unknown) (unknown) (no [...] (unknown) buprenorphine, (units (unknown) date) hyoscyamine, unknown) Petdqnn-UDK-GoZ Reductase Inhibitor, diazepam (unknown) (no (unknown) (unknown) [...] mg PO unknown) Q4-5H PRN #60 tab 04/01/21 (unknown) (no (unknown) (unknown) oxycodone-acetamin (units (unknown) [...] hypertrophy or exudate. Airway patent. Result panel 24 (unknown) (no (unknown) (unknown) (no value) (units (unk nown) date) unknown) (unknown) (no (unknown) (unknown) [address] [place] [address] (units (unknown) date) unknown) (unknown) (no (unknown) (unknown) ALINA [place] (units ( unknown) date) [address] unknown) (unknown) (no (unknown) (unknown) CT Scan Report (units (unknown) date) unknown) (unknown) (no (unknown) (unknown) [facility] (units (unknown) date) unknown) (unknown) (no (unknown) (unknown) Signed (units (unkno wn) date) unknown) (unknown) (no (unknown) (unknown) (no value) (units (unk nown) date) unknown) (unknown) (no (unknown) (unknown) 12/08/21 (units (unkno wn) date) unknown) (unknown) (no (unknown) (unknown) Approved by: (units (u nknown) date) Kat Raphael [...] (unknown) (unknown) Accession Number: (units (unknown) date) [id number] unknown) (unknown) (no (unknown) (unknown) Age/Sex: 76 / M (units (unknown) date) Date of Service: unknown) (unknown) (no (unknown) (unknown) : 1945 (units (unknown) date) Acct:[id number] unknown) (unknown) (no (unknown) (unknown) Loc: ED (units (unkno wn) date) unknown) (unknown) (no (unknown) (unknown) [id number] (units (unk nown) date) unknown) (unknown) (no (unknown) (unknown) Ordering (units (unkno wn) date) Provider: unknown) Jung Dejesus D.O. (unknown) (no (unknown) (unknown) PROCEDURE: CT (units (unknown) date) LUMBAR SPINE WO unknown) CON (unknown) (no (unknown) (unknown) Patient: (units (unkno wn) date) JackelineRadha D unknown) MR#: (unknown) (no (unknown) (unknown) Procedure: [...] (units (unkn own) date) unknown) Result panel 25 (unknown) (no (unknown) (unknown) (no value) (units [...] own) date) unknown) (unknown) (no (unknown) (unknown) [place], [place] (units ( unknown) date) [address] unknown) (unknown) (no (unknown) (unknown) CT Scan [...] unknown) HOURS NEEDED (unknown) (no (unknown) (unknown) [facility] (units (unknown) date) unknown) (unknown) (no (unknown) (unknown) [facility] (units (unknown) date) [address] [place] [address] unknown) [place] [address] (unknown) (no (unknown) (unknown) JERKING, (units (unkno [...] wn) date) unknown) (unknown) (no (unknown) (unknown) [id number] (units (unkn own) date) unknown) (unknown) (no [...] (unknown) (unknown) Accession Number: (units (unknown) date) [id number] ?? unknown) (unknown) (no (unknown) (unknown) Accession Number: (units (unknown) date) [id number] ?? unknown) (unknown) (no (unknown) (unknown) Acct:[id number] (units (unknown) date) unknown) (unknown) (no (unknown) [...] (unknown) (unknown) COMPARISON:? (units (u nknown) date) [facility], unknown) CT, CT CERVICAL SPINE WO CON, 04/16/2021, 12:21. (unknown) (no (unknown) (unknown) COMPARISON:? (units (u nknown) date) [facility], unknown) CT, CT HEAD/BRAIN WO CON, 04/16/2021, [...] (unknown) (unknown) : 1945 (units (unknown) date) Acct:[id number] unknown) (unknown) (no (unknown) (unknown) : 1945 [...] date) cardiomyopathy unknown) (unknown) (no (unknown) (unknown) TheodoreLorrieTl (units (unknown) date) unknown) (unknown) (no (unknown) (unknown) [place] (units ( unknown) date) unknown) (unknown) (no [...] (unknown) Lymph # (Auto) (units (unknown) date) (0007-2264) /uL unknown) (unknown) (no (unknown) (unknown) Lymph # (Auto) (units (unknown) date) (4664-5708) /uL unknown) (unknown) (no (unknown) (unknown) Lymph # (Auto) (units (unknown) date) 1700 (7280-9861) unknown) /uL (unknown) (no (unknown) (unknown) Lymph [...] date) unknown) (unknown) (no (unknown) (unknown) MR#: [id number] (units (unknown) date) unknown) (unknown) (no (unknown) (unknown) MUSCULOSKELETAL: (units (unknown) date) See HPI unknown) (unknown) (no (unknown) (unknown) Medical History (units (unknown) date) (Reviewed 12/08/21 unknown) @ 01:57 by Jung Dejesus DO) (unknown) (no (unknown) (unknown) Cheryl Husain (units (unknown) date) unknown) (unknown) (no (unknown) (unknown) Mode of arrival: (units (unknown) date) EMS unknown) (unknown) (no (unknown) (unknown) [place] # (Auto) (units ( unknown) date) (0-900) /uL unknown) (unknown) (no (unknown) (unknown) [place] # (Auto) (units ( unknown) date) (0-900) /uL unknown) (unknown) (no (unknown) (unknown) [place] # (Auto) 700 (units (unknown) date) (0-900) /uL unknown) (unknown) (no (unknown) (unknown) [place] % (Auto) (units ( unknown) date) (3-14) % unknown) (unknown) (no (unknown) (unknown) [place] % (Auto) (units ( unknown) date) (3-14) % unknown) (unknown) (no (unknown) (unknown) [place] % (Auto) 9.5 (units (unknown) date) (3-14) [...] Neut # (Auto) (units ( unknown) date) (7974-3468) /uL unknown) (unknown) (no (unknown) (unknown) Neut # (Auto) (units ( unknown) date) (4659-4034) /uL unknown) (unknown) (no (unknown) (unknown) Neut # (Auto) (units ( unknown) date) 4800 (3864-6449) unknown) /uL (unknown) (no (unknown) (unknown) Neut [...] (unknown) (unknown) Patient: (units (unkno wn) date) Radha Peraza unknown) MR#: M (unknown) (no (unknown) (unknown) Patient: (units (unkno wn) date) Radha Peraza unknown) (unknown) (no (unknown) (unknown) Maxim Valadez [...] wheezing, hemoptysis, sputum. (unknown) (no (unknown) (unknown) Radha Peraza (units (unknown) date) D??76??M?? unknown) 5 (unknown) [...] date) unknown) (unknown) (no (unknown) (unknown) Sudarshan Caldreon (units (u nknown) date) unknown) (unknown) (no [...] Back Pain unknown) (unknown) (no (unknown) (unknown) Tabjibk-SRM-GxC (units (unknown) date) Reductase AdvReac unknown) Mild [...] (unknown) Ur Specific (units (un known) date) [place] unknown) (1.000-1.035) (unknown) (no (unknown) (unknown) Ur Specific (units (un known) date) [place] unknown) (1.000-1.035) (unknown) (no (unknown) (unknown) Ur Specific (units (un known) date) [place] 1.020 unknown) (1.000-1.035) (unknown) (no (unknown) (unknown) [...] Not Available] unknown) (unknown) (no (unknown) (unknown) [DFREGBU-JGF-ATM (units (unknown) date) REDUCTASE unknown) (unknown) (no [...] (unknown) buprenorphine, (units (unknown) date) hyoscyamine, unknown) Xeykrsd-ENC-OvP Reductase Inhibitor, diazepam (unknown) (no (unknown) (unknown) [...] hypertrophy or exudate. Airway patent. Result panel 26 (unknown) (no (unknown) (unknown) (no value) (units [...] own) date) unknown) (unknown) (no (unknown) (unknown) [place], [place] (units ( unknown) date) [address] unknown) (unknown) (no (unknown) (unknown) CT Scan [...] unknown) HOURS NEEDED (unknown) (no (unknown) (unknown) [facility] (units (unknown) date) unknown) (unknown) (no (unknown) (unknown) [facility] (units (unknown) date) [address] [place] [address] unknown) [place] [address] (unknown) (no (unknown) (unknown) [place]ERK[place], (units (unkno [...] wn) date) unknown) (unknown) (no (unknown) (unknown) [id number] (units (unkn own) date) unknown) (unknown) (no [...] (unknown) (unknown) Accession Number: (units (unknown) date) [id number] ?? unknown) (unknown) (no (unknown) (unknown) Accession Number: (units (unknown) date) [id number] ?? unknown) (unknown) (no (unknown) (unknown) Acct:[id number] (units (unknown) date) unknown) (unknown) (no (unknown) [...] (unknown) (unknown) COMPARISON:? (units (u nknown) date) [facility], unknown) CT, CT CERVICAL SPINE WO CON, 04/16/2021, 12:21. (unknown) (no (unknown) (unknown) COMPARISON:? (units (u nknown) date) [facility], unknown) CT, CT HEAD/BRAIN WO CON, 04/16/2021, [...] (unknown) (unknown) : 1945 (units (unknown) date) Acct:[id number] unknown) (unknown) (no (unknown) (unknown) : 1945 [...] date) cardiomyopathy unknown) (unknown) (no (unknown) (unknown) TheodoreRainerTl (units (unknown) date) unknown) (unknown) (no (unknown) (unknown) [place] (units ( unknown) date) unknown) (unknown) (no [...] (unknown) Lymph # (Auto) (units (unknown) date) (7125-5991) /uL unknown) (unknown) (no (unknown) (unknown) Lymph # (Auto) (units (unknown) date) (3382-7892) /uL unknown) (unknown) (no (unknown) (unknown) Lymph # (Auto) (units (unknown) date) 1700 (6572-4396) unknown) /uL (unknown) (no (unknown) (unknown) Lymph [...] date) unknown) (unknown) (no (unknown) (unknown) MR#: [id number] (units (unknown) date) unknown) (unknown) (no (unknown) (unknown) MUSCULOSKELETAL: (units (unknown) date) See HPI unknown) (unknown) (no (unknown) (unknown) Medical History (units (unknown) date) (Reviewed 12/08/21 unknown) @ 01:57 by Jung Dejesus DO) (unknown) (no (unknown) (unknown) Cheryl Husain (units (unknown) date) unknown) (unknown) (no (unknown) (unknown) Mode of arrival: (units (unknown) date) EMS unknown) (unknown) (no (unknown) (unknown) [place] # (Auto) (units ( unknown) date) (0-900) /uL unknown) (unknown) (no (unknown) (unknown) [place] # (Auto) (units ( unknown) date) (0-900) /uL unknown) (unknown) (no (unknown) (unknown) [place] # (Auto) 700 (units (unknown) date) (0-900) /uL unknown) (unknown) (no (unknown) (unknown) [place] % (Auto) (units ( unknown) date) (3-14) % unknown) (unknown) (no (unknown) (unknown) [place] % (Auto) (units ( unknown) date) (3-14) % unknown) (unknown) (no (unknown) (unknown) [place] % (Auto) 9.5 (units (unknown) date) (3-14) [...] Neut # (Auto) (units ( unknown) date) (6206-3188) /uL unknown) (unknown) (no (unknown) (unknown) Neut # (Auto) (units ( unknown) date) (7676-4459) /uL unknown) (unknown) (no (unknown) (unknown) Neut # (Auto) (units ( unknown) date) 4800 (8325-7577) unknown) /uL (unknown) (no (unknown) (unknown) Neut [...] (unknown) (unknown) Patient: (units (unkno wn) date) Radha Peraza unknown) MR#: M (unknown) (no (unknown) (unknown) Patient: (units (unkno wn) date) Radha Peraza unknown) (unknown) (no (unknown) (unknown) Maxim Valadez [...] wheezing, hemoptysis, sputum. (unknown) (no (unknown) (unknown) Radha Peraza (units (unknown) date) D??76??M?? unknown) 5 (unknown) [...] Back Pain unknown) (unknown) (no (unknown) (unknown) Yitxift-LTM-IxR (units (unknown) date) Reductase AdvReac unknown) Mild [...] (unknown) Ur Specific (units (un known) date) [place] unknown) (1.000-1.035) (unknown) (no (unknown) (unknown) Ur Specific (units (un known) date) [place] unknown) (1.000-1.035) (unknown) (no (unknown) (unknown) Ur Specific (units (un known) date) [place] 1.020 unknown) (1.000-1.035) (unknown) (no (unknown) (unknown) [...] Not Available] unknown) (unknown) (no (unknown) (unknown) [ZEWTFEN-JCY-YCW (units (unknown) date) REDUCTASE unknown) (unknown) (no [...] (unknown) buprenorphine, (units (unknown) date) hyoscyamine, unknown) Raiqevg-NAF-AdS Reductase Inhibitor, diazepam (unknown) (no (unknown) (unknown) [...] hypertrophy or exudate. Airway patent. Result panel 27 (unknown) (no (unknown) (unknown) (no value) (units [...] 0RF (unknown) (no (unknown) (unknown) [address] (units (unknown) date) unknown) (unknown) (no (unknown) [...] own) date) unknown) (unknown) (no (unknown) (unknown) [place], [place] (units ( unknown) date) [address] unknown) (unknown) (no (unknown) (unknown) CT Scan [...] unknown) HOURS NEEDED (unknown) (no (unknown) (unknown) [facility] (units (unknown) date) unknown) (unknown) (no (unknown) (unknown) [facility] (units (unknown) date) [address] unknown) [place] [address] (unknown) (no (unknown) (unknown) JERKING, (units (unkno [...] wn) date) unknown) (unknown) (no (unknown) (unknown) [id number] (units (unkn own) date) unknown) (unknown) (no [...] (unknown) (unknown) Accession Number: (units (unknown) date) [id number] ?? unknown) (unknown) (no (unknown) (unknown) Accession Number: (units (unknown) date) [id number] ?? unknown) (unknown) (no (unknown) (unknown) Acct:[id number] (units (unknown) date) unknown) (unknown) (no (unknown) [...] (units (u nknown) date) Maxim Valadez, unknown) M.Ijeoma on 12/07/2021 at 21:44 ? (unknown) (no [...] (unknown) (unknown) COMPARISON:? (units (u nknown) date) [facility], unknown) CT, CT CERVICAL SPINE WO CON, 04/16/2021, 12:21. (unknown) (no (unknown) (unknown) COMPARISON:? (units (u nknown) date) [facility], unknown) CT, CT HEAD/BRAIN WO CON, 04/16/2021, [...] pulmonary disease (10/22/16) (unknown) (no (unknown) (unknown) Saavedra,Zeina (units (u nknown) date) unknown) (unknown) (no [...] (unknown) (unknown) : 1945 (units (unknown) date) Acct:[id number] unknown) (unknown) (no (unknown) (unknown) : 1945 [...] (unknown) Dictated by: (units (u nknown) date) dinorha Monsivais) Clifford on 12/07/2021 at 21:44 ? [...] (unknown) date) unknown) (unknown) (no (unknown) (unknown) [place]harath (units ( unknown) date) unknown) (unknown) (no [...] (unknown) Lymph # (Auto) (units (unknown) date) (5745-1091) /uL unknown) (unknown) (no (unknown) (unknown) Lymph # (Auto) (units (unknown) date) (2248-3081) /uL unknown) (unknown) (no (unknown) (unknown) Lymph # (Auto) (units (unknown) date) 1700 (9819-4171) unknown) /uL (unknown) (no (unknown) (unknown) Lymph [...] date) unknown) (unknown) (no (unknown) (unknown) MR#: [id number] (units (unknown) date) unknown) (unknown) (no (unknown) (unknown) MUSCULOSKELETAL: (units (unknown) date) See HPI unknown) (unknown) (no (unknown) (unknown) Medical History (units (unknown) date) (Reviewed 12/08/21 unknown) @ 01:57 by Jung Evans, DO) (unknown) (no (unknown) (unknown) Cheryl Husain (units (unknown) date) unknown) (unknown) (no (unknown) (unknown) Mode of arrival: (units (unknown) date) EMS unknown) (unknown) (no (unknown) (unknown) [place] # (Auto) (units ( unknown) date) (0-900) /uL unknown) (unknown) (no (unknown) (unknown) [place] # (Auto) (units ( unknown) date) (0-900) /uL unknown) (unknown) (no (unknown) (unknown) [place] # (Auto) 700 (units (unknown) date) (0-900) /uL unknown) (unknown) (no (unknown) (unknown) [place] % (Auto) (units ( unknown) date) (3-14) % unknown) (unknown) (no (unknown) (unknown) [place] % (Auto) (units ( unknown) date) (3-14) % unknown) (unknown) (no (unknown) (unknown) [place] % (Auto) 9.5 (units (unknown) date) (3-14) [...] Neut # (Auto) (units ( unknown) date) (9799-5167) /uL unknown) (unknown) (no (unknown) (unknown) Neut # (Auto) (units ( unknown) date) (2425-1161) /uL unknown) (unknown) (no (unknown) (unknown) Neut # (Auto) (units ( unknown) date) 4800 (3100-4424) unknown) /uL (unknown) (no (unknown) (unknown) Neut [...] (unknown) (unknown) Patient: (units (unkno wn) date) Radha Peraza unknown) MR#: M (unknown) (no (unknown) (unknown) Patient: (units (unkno wn) date) Radha Peraza unknown) (unknown) (no (unknown) (unknown) Maxim Valadez [...] wheezing, hemoptysis, sputum. (unknown) (no (unknown) (unknown) Radha Peraza (units (unknown) date) D??76??M?? unknown) 5 (unknown) [...] Back Pain unknown) (unknown) (no (unknown) (unknown) Xwmndvs-VEI-OzR (units (unknown) date) Reductase AdvReac unknown) Mild [...] (unknown) Ur Specific (units (un known) date) [place] unknown) (1.000-1.035) (unknown) (no (unknown) (unknown) Ur Specific (units (un known) date) [place] unknown) (1.000-1.035) (unknown) (no (unknown) (unknown) Ur Specific (units (un known) date) [place] 1.020 unknown) (1.000-1.035) (unknown) (no (unknown) (unknown) [...] Not Available] unknown) (unknown) (no (unknown) (unknown) [KUTAPTP-GQD-RMQ (units (unknown) date) REDUCTASE unknown) (unknown) (no [...] (unknown) buprenorphine, (units (unknown) date) hyoscyamine, unknown) Dgjjtwo-ZIU-SqP Reductase Inhibitor, diazepam (unknown) (no (unknown) (unknown) [...] hypertrophy or exudate. Airway patent. Result panel 28 (unknown) (no (unknown) (unknown) (no value) (units [...] own) date) unknown) (unknown) (no (unknown) (unknown) [place], [place] (units ( unknown) date) [address] unknown) (unknown) (no (unknown) (unknown) CT Scan [...] unknown) HOURS NEEDED (unknown) (no (unknown) (unknown) [facility] (units (unknown) date) unknown) (unknown) (no (unknown) (unknown) [facility] (units (unknown) date) [address]) [place] [address] (unknown) (no (unknown) (unknown) JERKING, (units (unkno [...] wn) date) unknown) (unknown) (no (unknown) (unknown) [id number] (units (unkn own) date) unknown) (unknown) (no [...] (unknown) (unknown) Accession Number: (units (unknown) date) [id number] ?? unknown) (unknown) (no (unknown) (unknown) Accession Number: (units (unknown) date) [id number] ?? unknown) (unknown) (no (unknown) (unknown) Acct:[id number] (units (unknown) date) unknown) (unknown) (no (unknown) [...] (unknown) (unknown) COMPARISON:? (units (u nknown) date) [facility], unknown) CT, CT CERVICAL SPINE WO CON, 04/16/2021, 12:21. (unknown) (no (unknown) (unknown) COMPARISON:? (units (u nknown) date) [facility], unknown) CT, CT HEAD/BRAIN WO [facility], 04/16/2021, 12:21. (unknown) (no (unknown) [...] pulmonary disease (10/22/16) (unknown) (no (unknown) (unknown) Saavedra,Zeina (units (u nknown) date) unknown) (unknown) (no [...] (unknown) (unknown) : 1945 (units (unknown) date) Acct:[id number] unknown) (unknown) (no (unknown) (unknown) : 1945 [...] (unknown) date) unknown) (unknown) (no (unknown) (unknown) [place],Bharath (units ( unknown) date) unknown) (unknown) (no [...] (unknown) Lymph # (Auto) (units (unknown) date) (0228-4749) /uL unknown) (unknown) (no (unknown) (unknown) Lymph # (Auto) (units (unknown) date) (9895-0073) /uL unknown) (unknown) (no (unknown) (unknown) Lymph # (Auto) (units (unknown) date) 1700 (5006-2043) unknown) /uL (unknown) (no (unknown) (unknown) Lymph [...] date) unknown) (unknown) (no (unknown) (unknown) MR#: [id number] (units (unknown) date) unknown) (unknown) (no (unknown) (unknown) MUSCULOSKELETAL: (units (unknown) date) See HPI unknown) (unknown) (no (unknown) (unknown) Medical History (units (unknown) date) (Reviewed 12/08/21 unknown) @ 01:57 by Jung Dejesus DO) (unknown) (no (unknown) (unknown) Cheryl Husain (units (unknown) date) unknown) (unknown) (no (unknown) (unknown) Mode of arrival: (units (unknown) date) EMS unknown) (unknown) (no (unknown) (unknown) [place] # (Auto) (units ( unknown) date) (0-900) /uL unknown) (unknown) (no (unknown) (unknown) [place] # (Auto) (units ( unknown) date) (0-900) /uL unknown) (unknown) (no (unknown) (unknown) [place] # (Auto) 700 (units (unknown) date) (0-900) /uL unknown) (unknown) (no (unknown) (unknown) [place] % (Auto) (units ( unknown) date) (3-14) % unknown) (unknown) (no (unknown) (unknown) [place] % (Auto) (units ( unknown) date) (3-14) % unknown) (unknown) (no (unknown) (unknown) [place] % (Auto) 9.5 (units (unknown) date) (3-14) [...] Neut # (Auto) (units ( unknown) date) (5318-6394) /uL unknown) (unknown) (no (unknown) (unknown) Neut # (Auto) (units ( unknown) date) (5363-5012) /uL unknown) (unknown) (no (unknown) (unknown) Neut # (Auto) (units ( unknown) date) 4800 (0320-9177) unknown) /uL (unknown) (no (unknown) (unknown) Neut [...] (unknown) (unknown) Patient: (units (unkno wn) date) Radha Peraza unknown) MR#: M (unknown) (no (unknown) (unknown) Patient: (units (unkno wn) date) Radha Peraza unknown) (unknown) (no (unknown) (unknown) Maxim Valadez [...] wheezing, hemoptysis, sputum. (unknown) (no (unknown) (unknown) Radha Peraza (units (unknown) date) D??76??M?? unknown) 5 (unknown) [...] date) unknown) (unknown) (no (unknown) (unknown) Sudarshan Cadleron (units (u nknown) date) unknown) (unknown) (no [...] Back Pain unknown) (unknown) (no (unknown) (unknown) Fcwiphh-BLX-ZjM (units (unknown) date) Reductase AdvReac unknown) Mild [...] (unknown) Ur Specific (units (un known) date) [place] unknown) (1.000-1.035) (unknown) (no (unknown) (unknown) Ur Specific (units (un known) date) [place] unknown) (1.000-1.035) (unknown) (no (unknown) (unknown) Ur Specific (units (un known) date) [place] 1.020 unknown) (1.000-1.035) (unknown) (no (unknown) (unknown) [...] Not Available] unknown) (unknown) (no (unknown) (unknown) [TSWWRGF-GTD-TDR (units (unknown) date) REDUCTASE unknown) (unknown) (no [...] (unknown) buprenorphine, (units (unknown) date) hyoscyamine, unknown) Xxklgtj-RZF-WaW Reductase Inhibitor, diazepam (unknown) (no (unknown) (unknown) [...] hypertrophy or exudate. Airway patent. Result panel 29 (unknown) (no (unknown) (unknown) (no value) (units [...] own) date) unknown) (unknown) (no (unknown) (unknown) [place], [place] (units ( unknown) date) [address] unknown) (unknown) (no (unknown) (unknown) CT Scan [...] unknown) HOURS NEEDED (unknown) (no (unknown) (unknown) [facility] (units (unknown) date) unknown) (unknown) (no (unknown) (unknown) [facility] (units (unknown) date) [address] unknown) [place] [address] (unknown) (no (unknown) (unknown) JERKING, (units (unkno [...] wn) date) unknown) (unknown) (no (unknown) (unknown) [id number] (units (unkn own) date) unknown) (unknown) (no [...] (unknown) (unknown) Accession Number: (units (unknown) date) [id number] ?? unknown) (unknown) (no (unknown) (unknown) Accession Number: (units (unknown) date) [id number] ?? unknown) (unknown) (no (unknown) (unknown) Acct:[id number] (units (unknown) date) unknown) (unknown) (no (unknown) [...] unknownRui Horton on 12/07/2021 at 21:44 ? (unknown) (no [...] (unknown) (unknown) COMPARISON:? (units (u nknown) date) [facility], unknown) CT, CT CERVICAL SPINE WO [facility], 04/16/2021, 12:21. (unknown) (no (unknown) (unknown) COMPARISON:? (units (u nknown) date) [facility], unknown) CT, CT HEAD/BRAIN WO [facility], 04/16/2021, 12:21. (unknown) (no (unknown) [...] (unknown) (unknown) : 1945 (units (unknown) date) Acct:[id number] unknown) (unknown) (no (unknown) (unknown) : 1945 [...] date) cardiomyopathy unknown) (unknown) (no (unknown) (unknown) [place] (units (unknown) date) unknown) (unknown) (no (unknown) [...] PO NOW ONE (unknown) (no (unknown) (unknown) Jarrett,Satish (units (unkno wn) date) unknown) (unknown) (no (unknown) (unknown) Loc: ED (units (unkno wn) date) unknown) (unknown) (no (unknown) (unknown) Lumbar Spine MRI (units (unknown) date) (Signed) unknown) (unknown) (no (unknown) (unknown) Lymph # (Auto) (units (unknown) date) (4370-2308) /uL unknown) (unknown) (no (unknown) (unknown) Lymph # (Auto) (units (unknown) date) (0758-9690) /uL unknown) (unknown) (no (unknown) (unknown) Lymph # (Auto) (units (unknown) date) 1700 (2042-1401) unknown) /uL (unknown) (no (unknown) (unknown) Lymph [...] date) unknown) (unknown) (no (unknown) (unknown) MR#: [id number] (units (unknown) date) unknown) (unknown) (no (unknown) [...] date) EMS unknown) (unknown) (no (unknown) (unknown) [place] # (Auto) (units ( unknown) date) (0-900) /uL unknown) (unknown) (no (unknown) (unknown) [place] # (Auto) (units ( unknown) date) (0-900) /uL unknown) (unknown) (no (unknown) (unknown) [place] # (Auto) 700 (units (unknown) date) (0-900) /uL unknown) (unknown) (no (unknown) (unknown) [place] % (Auto) (units ( unknown) date) (3-14) % unknown) (unknown) (no (unknown) (unknown) [place] % (Auto) (units ( unknown) date) (3-14) % unknown) (unknown) (no (unknown) (unknown) [place] % (Auto) 9.5 (units (unknown) date) (3-14) [...] Neut # (Auto) (units ( unknown) date) (2684-2479) /uL unknown) (unknown) (no (unknown) (unknown) Neut # (Auto) (units ( unknown) date) (9073-0946) /uL unknown) (unknown) (no (unknown) (unknown) Neut # (Auto) (units ( unknown) date) 4800 (5723-2932) unknown) /uL (unknown) (no (unknown) (unknown) Neut [...] (unknown) (unknown) Patient: (units (unkno wn) date) Jackeline,Radha D unknown) MR#: M (unknown) (no (unknown) (unknown) Patient: (units (unkno wn) date) aRdha Peraza unknown) (unknown) (no (unknown) (unknown) Maxim Valadez [...] wheezing, hemoptysis, sputum. (unknown) (no (unknown) (unknown) Radha Peraza (units (unknown) date) D??76??M?? unknown) 5 (unknown) [...] Back Pain unknown) (unknown) (no (unknown) (unknown) Ollmwdr-YAE-VaO (units (unknown) date) Reductase AdvReac unknown) Mild [...] (unknown) Ur Specific (units (un known) date) [place] unknown) (1.000-1.035) (unknown) (no (unknown) (unknown) Ur Specific (units (un known) date) [place] unknown) (1.000-1.035) (unknown) (no (unknown) (unknown) Ur Specific (units (un known) date) [place] 1.020 unknown) (1.000-1.035) (unknown) (no (unknown) (unknown) [...] Not Available] unknown) (unknown) (no (unknown) (unknown) [MGZWWRW-SZT-PYW (units (unknown) date) REDUCTASE unknown) (unknown) (no [...] (unknown) buprenorphine, (units (unknown) date) hyoscyamine, unknown) Aednpza-IVG-TlY Reductase Inhibitor, diazepam (unknown) (no (unknown) (unknown) [...] hypertrophy or exudate. Airway patent. Result panel 30 (unknown) (no (unknown) (unknown) [...] 14 0RF (unknown) (no (unknown) (unknown) [address] (units (unknown) date) unknown) (unknown) (no (unknown) [...] own) date) unknown) (unknown) (no (unknown) (unknown) [place], [place] (units ( unknown) date) [address] unknown) (unknown) (no (unknown) (unknown) CT Scan [...] unknown) HOURS NEEDED (unknown) (no (unknown) (unknown) [facility] (units (unknown) date) unknown) (unknown) (no (unknown) (unknown) [facility] (units (unknown) date) [address] unknown) [place] [address] (unknown) (no (unknown) (unknown) JERKING, (units (unkno [...] wn) date) unknown) (unknown) (no (unknown) (unknown) [id number] (units (unkn own) date) unknown) (unknown) (no [...] (unknown) (unknown) Accession Number: (units (unknown) date) [id number] ?? unknown) (unknown) (no (unknown) (unknown) Accession Number: (units (unknown) date) [id number] ?? unknown) (unknown) (no (unknown) (unknown) Acct:[id number] (units (unknown) date) unknown) (unknown) (no (unknown) [...] (unknown) (unknown) COMPARISON:? (units (u nknown) date) [facility], unknown) CT, CT CERVICAL SPINE WO CON, 04/16/2021, 12:21. (unknown) (no (unknown) (unknown) COMPARISON:? (units (u nknown) date) [facility], unknown) CT, CT HEAD/BRAIN WO CON, 04/16/2021, [...] (unknown) (unknown) : 1945 (units (unknown) date) Acct:[id number] unknown) (unknown) (no (unknown) (unknown) : 1945 [...] Maxim Valadez unknownRui Horton on 12/07/2021 at 21:42 ? [...] ER Physician: (units ( unknown) date) Ezra Jsamine MD unknown) (unknown) (no (unknown) (unknown) EXTREMITIES: [...] (unknown) Lymph # (Auto) (units (unknown) date) (6453-1880) /uL unknown) (unknown) (no (unknown) (unknown) Lymph # (Auto) (units (unknown) date) (0949-9333) /uL unknown) (unknown) (no (unknown) (unknown) Lymph # (Auto) (units (unknown) date) 1700 (4198-3954) unknown) /uL (unknown) (no (unknown) (unknown) Lymph [...] date) unknown) (unknown) (no (unknown) (unknown) MR#: [id number] (units (unknown) date) unknown) (unknown) (no (unknown) [...] date) EMS unknown) (unknown) (no (unknown) (unknown) [place] # (Auto) (units ( unknown) date) (0-900) /uL unknown) (unknown) (no (unknown) (unknown) [place] # (Auto) (units ( unknown) date) (0-900) /uL unknown) (unknown) (no (unknown) (unknown) [place] # (Auto) 700 (units (unknown) date) (0-900) /uL unknown) (unknown) (no (unknown) (unknown) [place] % (Auto) (units ( unknown) date) (3-14) % unknown) (unknown) (no (unknown) (unknown) [place] % (Auto) (units ( unknown) date) (3-14) % unknown) (unknown) (no (unknown) (unknown) [place] % (Auto) 9.5 (units (unknown) date) (3-14) [...] Neut # (Auto) (units ( unknown) date) (7906-8362) /uL unknown) (unknown) (no (unknown) (unknown) Neut # (Auto) (units ( unknown) date) (3901-5268) /uL unknown) (unknown) (no (unknown) (unknown) Neut # (Auto) (units ( unknown) date) 4800 (0687-1359) unknown) /uL (unknown) (no (unknown) (unknown) Neut [...] (unknown) (unknown) Patient: (units (unkno wn) date) Radha Peraza unknown) MR#: M (unknown) (no (unknown) (unknown) Patient: (units (unkno wn) date) Radha Peraza unknown) (unknown) (no (unknown) (unknown) ValadezMaxim more [...] wheezing, hemoptysis, sputum. (unknown) (no (unknown) (unknown) Radha Peraza (units (unknown) date) D??76??M?? unknown) 5 (unknown) [...] Back Pain unknown) (unknown) (no (unknown) (unknown) Brxmgxf-ZGV-ViP (units (unknown) date) Reductase AdvReac unknown) Mild [...] (unknown) Ur Specific (units (un known) date) [place] unknown) (1.000-1.035) (unknown) (no (unknown) (unknown) Ur Specific (units (un known) date) [place] unknown) (1.000-1.035) (unknown) (no (unknown) (unknown) Ur Specific (units (un known) date) [place] 1.020 unknown) (1.000-1.035) (unknown) (no (unknown) (unknown) [...] Not Available] unknown) (unknown) (no (unknown) (unknown) [UEGREDI-JGQ-OTK (units (unknown) date) REDUCTASE unknown) (unknown) (no [...] (unknown) buprenorphine, (units (unknown) date) hyoscyamine, unknown) Ouqgjpd-CWG-WrK Reductase Inhibitor, diazepam (unknown) (no (unknown) (unknown) [...] hypertrophy or exudate. Airway patent. Result panel 31 (unknown) (no (unknown) (unknown) (no value) (units [...] 0RF (unknown) (no (unknown) (unknown) [address] [place] (units (unknown) date) unknown) (unknown) (no (unknown) [...] own) date) unknown) (unknown) (no (unknown) (unknown) [place], [place] (units ( unknown) date) [address] unknown) (unknown) (no (unknown) (unknown) CT Scan [...] unknown) HOURS NEEDED (unknown) (no (unknown) (unknown) [facility] (units (unknown) date) unknown) (unknown) (no (unknown) (unknown) [facility] (units (unknown) date) [address] unknown) [place] [address] (unknown) (no (unknown) (unknown) JERKING, (units (unkno [...] unknown) (unknown) (no (unknown) (unknown) [place], or [place]. (units (unknown) date) unknown) (unknown) (no (unknown) [...] wn) date) unknown) (unknown) (no (unknown) (unknown) [id number] (units (unkn own) date) unknown) (unknown) (no [...] (unknown) (unknown) Accession Number: (units (unknown) date) [id number] ?? unknown) (unknown) (no (unknown) (unknown) Accession Number: (units (unknown) date) [id number] ?? unknown) (unknown) (no (unknown) (unknown) Acct:[id number] (units (unknown) date) unknown) (unknown) (no (unknown) [...] (unknown) Approved by: (units (u nknown) date) dinorah Monsivais) Clifford on 12/07/2021 at 21:48 ? (unknown) [...] (unknown) (unknown) COMPARISON:? (units (u nknown) date) [facility], unknown) CT, CT CERVICAL SPINE WO CON, 04/16/2021, 12:21. (unknown) (no (unknown) (unknown) COMPARISON:? (units (u nknown) date) [facility], unknown) CT, CT HEAD/BRAIN WO CON, 04/16/2021, [...] (unknown) (unknown) : 1945 (units (unknown) date) Acct:[id number] unknown) (unknown) (no (unknown) (unknown) : 1945 [...] Maxim Valadez unknownRui Horton on 12/07/2021 at 21:42 ? [...] (unknown) date) unknown) (unknown) (no (unknown) (unknown) [place] (units ( unknown) date) unknown) (unknown) (no [...] (unknown) Lymph # (Auto) (units (unknown) date) (0316-6608) /uL unknown) (unknown) (no (unknown) (unknown) Lymph # (Auto) (units (unknown) date) (4977-1498) /uL unknown) (unknown) (no (unknown) (unknown) Lymph # (Auto) (units (unknown) date) 1700 (3311-3818) unknown) /uL (unknown) (no (unknown) (unknown) Lymph [...] date) unknown) (unknown) (no (unknown) (unknown) MR#: [id number] (units (unknown) date) unknown) (unknown) (no (unknown) [...] date) EMS unknown) (unknown) (no (unknown) (unknown) [place] # (Auto) (units ( unknown) date) (0-900) /uL unknown) (unknown) (no (unknown) (unknown) [place] # (Auto) (units ( unknown) date) (0-900) /uL unknown) (unknown) (no (unknown) (unknown) [place] # (Auto) 700 (units (unknown) date) (0-900) /uL unknown) (unknown) (no (unknown) (unknown) [place] % (Auto) (units ( unknown) date) (3-14) % unknown) (unknown) (no (unknown) (unknown) [place] % (Auto) (units ( unknown) date) (3-14) % unknown) (unknown) (no (unknown) (unknown) [place] % (Auto) 9.5 (units (unknown) date) (3-14) [...] Neut # (Auto) (units ( unknown) date) (7420-4116) /uL unknown) (unknown) (no (unknown) (unknown) Neut # (Auto) (units ( unknown) date) (0081-4088) /uL unknown) (unknown) (no (unknown) (unknown) Neut # (Auto) (units ( unknown) date) 4800 (2842-3820) unknown) /uL (unknown) (no (unknown) (unknown) Neut [...] (unknown) (unknown) Patient: (units (unkno wn) date) Radha Peraza unknown) MR#: M (unknown) (no (unknown) (unknown) Patient: (units (unkno wn) date) Radha Peraza unknown) (unknown) (no (unknown) (unknown) Maxim Valadez [...] wheezing, hemoptysis, sputum. (unknown) (no (unknown) (unknown) Radha Peraza (units (unknown) date) D??76??M?? unknown) 5 (unknown) [...] Back Pain unknown) (unknown) (no (unknown) (unknown) Uhabvse-LLR-BhH (units (unknown) date) Reductase AdvReac unknown) Mild [...] (unknown) Ur Specific (units (un known) date) [place] unknown) (1.000-1.035) (unknown) (no (unknown) (unknown) Ur Specific (units (un known) date) [place] unknown) (1.000-1.035) (unknown) (no (unknown) (unknown) Ur Specific (units (un known) date) [place] 1.020 unknown) (1.000-1.035) (unknown) (no (unknown) (unknown) [...] Not Available] unknown) (unknown) (no (unknown) (unknown) [VYZKYIL-DKN-BVN (units (unknown) date) REDUCTASE unknown) (unknown) (no [...] (unknown) buprenorphine, (units (unknown) date) hyoscyamine, unknown) Yztcqzw-BPS-OxP Reductase Inhibitor, diazepam (unknown) (no (unknown) (unknown) [...] hypertrophy or exudate. Airway patent. Result panel 32 (unknown) (no (unknown) (unknown) [...] (unknown) date) unknown) (unknown) (no (unknown) (unknown) [address] [place] [address] (units (unknown) date) unknown) (unknown) (no (unknown) (unknown) ANXIETY, (units (unkno wn) date) unknown) (unknown) (no (unknown) (unknown) Admin: 12/07/21 (units (unknown) date) 23:25 Dose: 150 unknown) mls/hr (unknown) (no (unknown) (unknown) Allergies (units (unkn own) date) unknown) (unknown) (no (unknown) (unknown) ALINA [facility] (units ( unknown) date) [address] unknown) (unknown) (no (unknown) (unknown) CT Scan [...] (unknown) date) unknown) (unknown) (no (unknown) (unknown) [facility] (units (unknown) date) unknown) (unknown) (no (unknown) (unknown) [facility] (units (unknown) date) [address] unknown) [place] [address] (unknown) (no (unknown) (unknown) JERKING, (units (unkno [...] wn) date) unknown) (unknown) (no (unknown) (unknown) [id number] (units (unkn own) date) unknown) (unknown) (no [...] (unknown) (unknown) Accession Number: (units (unknown) date) [id number] ?? unknown) (unknown) (no (unknown) (unknown) Accession Number: (units (unknown) date) [id number] ?? unknown) (unknown) (no (unknown) (unknown) Acct:[id number] (units (unknown) date) unknown) (unknown) (no (unknown) [...] Approved by: (units (u nknown) date) Maxim Valadze, unknown) Clifford on 12/07/2021 at 21:44 ? [...] (unknown) (unknown) COMPARISON:? (units (u nknown) date) [facility], unknown) CT, CT CERVICAL SPINE WO CON, 04/16/2021, 12:21. (unknown) (no (unknown) (unknown) COMPARISON:? (units (u nknown) date) [facility], unknown) CT, CT HEAD/BRAIN WO CON, 04/16/2021, [...] (unknown) (unknown) : 1945 (units (unknown) date) Acct:[id number] unknown) (unknown) (no (unknown) (unknown) : 1945 (units (unknown) date) unknown) (unknown) (no (unknown) (unknown) Date of Service: (units (unknown) date) 12/07/21 unknown) (unknown) (no (unknown) (unknown) Departure (units (unkn own) date) unknown) (unknown) (no (unknown) (unknown) Inder Farley (units (u nknown) date) unknown) (unknown) (no (unknown) (unknown) Dictated by: (units (u nknown) date) Maxim Valadez unknown) Clifford on 12/07/2021 at 21:42 ? [...] date) cardiomyopathy unknown) (unknown) (no (unknown) (unknown) [place] (units (unknown) date) unknown) (unknown) (no (unknown) [...] (unknown) Lymph # (Auto) (units (unknown) date) (8777-0083) /uL unknown) (unknown) (no (unknown) (unknown) Lymph # (Auto) (units (unknown) date) (9583-5436) /uL unknown) (unknown) (no (unknown) (unknown) Lymph # (Auto) (units (unknown) date) 1700 (3572-1462) unknown) /uL (unknown) (no (unknown) (unknown) Lymph [...] date) unknown) (unknown) (no (unknown) (unknown) MR#: [id number] (units (unknown) date) unknown) (unknown) (no (unknown) [...] date) EMS unknown) (unknown) (no (unknown) (unknown) [place] # (Auto) (units ( unknown) date) (0-900) /uL unknown) (unknown) (no (unknown) (unknown) [place] # (Auto) (units ( unknown) date) (0-900) /uL unknown) (unknown) (no (unknown) (unknown) [place] # (Auto) 700 (units (unknown) date) (0-900) /uL unknown) (unknown) (no (unknown) (unknown) [place] % (Auto) (units ( unknown) date) (3-14) % unknown) (unknown) (no (unknown) (unknown) [place] % (Auto) (units ( unknown) date) (3-14) % unknown) (unknown) (no (unknown) (unknown) [place] % (Auto) 9.5 (units (unknown) date) (3-14) [...] Neut # (Auto) (units ( unknown) date) (6258-7757) /uL unknown) (unknown) (no (unknown) (unknown) Neut # (Auto) (units ( unknown) date) (0296-3750) /uL unknown) (unknown) (no (unknown) (unknown) Neut # (Auto) (units ( unknown) date) 4800 (9926-0746) unknown) /uL (unknown) (no (unknown) (unknown) Neut [...] (unknown) (unknown) Patient: (units (unkno wn) date) Radha Peraza unknown) MR#: M (unknown) (no (unknown) (unknown) Patient: (units (unkno wn) date) Radha Peraza unknown) (unknown) (no (unknown) (unknown) Maxim Valadez [...] wheezing, hemoptysis, sputum. (unknown) (no (unknown) (unknown) JackelineRadha pike (units (unknown) date) D??76??M?? unknown) 5 (unknown) [...] Back Pain unknown) (unknown) (no (unknown) (unknown) Lgdtjzd-XLD-HjE (units (unknown) date) Reductase AdvReac unknown) Mild [...] (unknown) Ur Specific (units (un known) date) [place] unknown) (1.000-1.035) (unknown) (no (unknown) (unknown) Ur Specific (units (un known) date) [place] unknown) (1.000-1.035) (unknown) (no (unknown) (unknown) Ur Specific (units (un known) date) [place] 1.020 unknown) (1.000-1.035) (unknown) (no (unknown) (unknown) [...] Not Available] unknown) (unknown) (no (unknown) (unknown) [EXGWUMK-AJZ-WIS (units (unknown) date) REDUCTASE unknown) (unknown) (no [...] (unknown) buprenorphine, (units (unknown) date) hyoscyamine, unknown) Entlxnq-AEF-KoQ Reductase Inhibitor, diazepam (unknown) (no (unknown) (unknown) [...] (unknown) date) unknown) (unknown) (no (unknown) (unknown) [facility] (units (unknown) date) [address] [place] [address] unknown) [place] [address] (unknown) (no (unknown) (unknown) JERKING, (units (unkno [...] (unknown) date) unknown) (unknown) (no (unknown) (unknown) [id number] (units (unkn own) date) unknown) (unknown) (no [...] (unknown) (unknown) : 1945 (units (unknown) date) Acct:[id number] unknown) (unknown) (no (unknown) (unknown) Date Patient [...] wn) date) unknown) (unknown) (no (unknown) (unknown) [place] # (Auto) (units ( unknown) date) unknown) (unknown) (no (unknown) (unknown) [place] # (Auto) (units ( unknown) date) unknown) (unknown) (no (unknown) (unknown) [place] # (Auto) 700 (units (unknown) date) unknown) (unknown) (no (unknown) (unknown) [place] % (Auto) (units ( unknown) date) unknown) (unknown) (no (unknown) (unknown) [place] % (Auto) (units ( unknown) date) unknown) (unknown) (no (unknown) (unknown) [place] % (Auto) 9.5 (units (unknown) date) unknown) [...] (unknown) (unknown) Patient: (units (unkno wn) date) Radha Peraza unknown) MR#: M (unknown) (no (unknown) (unknown) [...] nknown) date) unknown) (unknown) (no (unknown) (unknown) Zztviog-JUJ-MrW (units (unknown) date) Reductase AdvReac unknown) Mild [...] (unknown) Ur Specific (units (un known) date) [place] unknown) (unknown) (no (unknown) (unknown) Ur Specific (units (un known) date) [place] unknown) (unknown) (no (unknown) (unknown) Ur Specific (units (un known) date) [place] 1.020 unknown) (unknown) (no (unknown) (unknown) Ur [...] Not Available] unknown) (unknown) (no (unknown) (unknown) [IDQTMAC-AMI-ZJK (units (unknown) date) REDUCTASE unknown) (unknown) (no [...] Severe Paranoia Verified 11/28/21 15:33 Result panel 34 (unknown) (no (unknown) (unknown) [...] (unknown) date) unknown) (unknown) (no (unknown) (unknown) [facility] (units (unknown) date) [address] unknown) [place] [address] (unknown) (no (unknown) (unknown) JERKING, (units (unkno [...] (unknown) date) unknown) (unknown) (no (unknown) (unknown) [id number] (units (unkn own) date) unknown) (unknown) (no [...] (unknown) (unknown) : 1945 (units (unknown) date) Acct:[id number] unknown) (unknown) (no (unknown) (unknown) Date Patient [...] (Reviewed 12/08/21 unknown) @ 13:50 by Aditya Tapia, DO) (unknown) (no (unknown) (unknown) Meds (units (unkno wn) date) unknown) (unknown) (no (unknown) (unknown) [place] # (Auto) (units ( unknown) date) unknown) (unknown) (no (unknown) (unknown) [place] # (Auto) (units ( unknown) date) unknown) (unknown) (no (unknown) (unknown) [place] # (Auto) 700 (units (unknown) date) unknown) (unknown) (no (unknown) (unknown) [place] % (Auto) (units ( unknown) date) unknown) (unknown) (no (unknown) (unknown) [place] % (Auto) (units ( unknown) date) unknown) (unknown) (no (unknown) (unknown) [place] % (Auto) 9.5 (units (unknown) date) unknown) [...] (unknown) (unknown) Patient: (units (unkno wn) date) Jackeline,Radha Gisele unknown) MR#: M (unknown) (no (unknown) [...] nknown) date) unknown) (unknown) (no (unknown) (unknown) Bmcsdwr-RPA-YcC (units (unknown) date) Reductase AdvReac unknown) Mild [...] (unknown) Ur Specific (units (un known) date) [place] unknown) (unknown) (no (unknown) (unknown) Ur Specific (units (un known) date) [place] unknown) (unknown) (no (unknown) (unknown) Ur Specific (units (un known) date) [place] 1.020 unknown) (unknown) (no (unknown) (unknown) Ur [...] (unknown) (no (unknown) (unknown) WBC 7.4 (units (o wn) date) unknown) (unknown) (no (unknown) (unknown) [Embedded Image (units (unknown) date) Not Available] unknown) (unknown) (no (unknown) (unknown) [TZMVAQB-GQQ-FJH (units (unknown) date) REDUCTASE unknown) (unknown) (no (unknown) (unknown) [SULFA (units (o wn) date) (SULFONAMIDE unknown) (unknown) (no (unknown) [...] Severe Paranoia Verified 11/28/21 15:33 Result panel 35 (unknown) (no (unknown) (unknown) [...] (unknown) date) unknown) (unknown) (no (unknown) (unknown) [facility] (units (unknown) date) [address] unknown) [place] [address] (unknown) (no (unknown) (unknown) JERKING, (units (unkno [...] (unknown) date) unknown) (unknown) (no (unknown) (unknown) [id number] (units (unkn own) date) unknown) (unknown) (no [...] (unknown) (unknown) : 1945 (units (unknown) date) Acct:[id number] unknown) (unknown) (no (unknown) (unknown) Date Patient [...] wn) date) unknown) (unknown) (no (unknown) (unknown) [place] # (Auto) (units ( unknown) date) unknown) (unknown) (no (unknown) (unknown) [place] # (Auto) (units ( unknown) date) unknown) (unknown) (no (unknown) (unknown) [place] # (Auto) 700 (units (unknown) date) unknown) (unknown) (no (unknown) (unknown) [place] % (Auto) (units ( unknown) date) unknown) (unknown) (no (unknown) (unknown) [place] % (Auto) (units ( unknown) date) unknown) (unknown) (no (unknown) (unknown) [place] % (Auto) 9.5 (units (unknown) date) unknown) [...] (unknown) (unknown) Patient: (units (unkno wn) date) Radha Peraza unknown) MR#: M (unknown) (no (unknown) (unknown) [...] nknown) date) unknown) (unknown) (no (unknown) (unknown) Axvdteb-GIB-ThS (units (unknown) date) Reductase AdvReac unknown) Mild [...] (unknown) Ur Specific (units (un known) date) [place] unknown) (unknown) (no (unknown) (unknown) Ur Specific (units (un known) date) [place] unknown) (unknown) (no (unknown) (unknown) Ur Specific (units (un known) date) [place] 1.020 unknown) (unknown) (no (unknown) (unknown) Ur [...] Not Available] unknown) (unknown) (no (unknown) (unknown) [WKVZXQV-PLY-FQF (units (unknown) date) REDUCTASE unknown) (unknown) (no [...] Severe Paranoia Verified 11/28/21 15:33 Result panel 36 (unknown) (no (unknown) (unknown) [...] (unknown) date) unknown) (unknown) (no (unknown) (unknown) [facility] (units (unknown) date) [address] unknown) [place] [address] (unknown) (no (unknown) (unknown) JERKING, (units (unkno [...] (unknown) date) unknown) (unknown) (no (unknown) (unknown) [id number] (units (unkn own) date) unknown) (unknown) (no [...] (unknown) (unknown) : 1945 (units (unknown) date) Acct:[id number] unknown) (unknown) (no (unknown) (unknown) Date Patient [...] wn) date) unknown) (unknown) (no (unknown) (unknown) [place] # (Auto) (units ( unknown) date) unknown) (unknown) (no (unknown) (unknown) [place] # (Auto) (units ( unknown) date) unknown) (unknown) (no (unknown) (unknown) [place] # (Auto) 700 (units (unknown) date) unknown) (unknown) (no (unknown) (unknown) [place] % (Auto) (units ( unknown) date) unknown) (unknown) (no (unknown) (unknown) [place] % (Auto) (units ( unknown) date) unknown) (unknown) (no (unknown) (unknown) [place] % (Auto) 9.5 (units (unknown) date) unknown) [...] (unknown) (unknown) Patient: (units (unkno wn) date) JackelineRadha barnes Gisele unknown) MR#: M (unknown) (no (unknown) [...] nknown) date) unknown) (unknown) (no (unknown) (unknown) Ygmugnd-TLC-OhZ (units (unknown) date) Reductase AdvReac unknown) Mild [...] (unknown) Ur Specific (units (un known) date) [place] unknown) (unknown) (no (unknown) (unknown) Ur Specific (units (un known) date) [place] unknown) (unknown) (no (unknown) (unknown) Ur Specific (units (un known) date) [place] 1.020 unknown) (unknown) (no (unknown) (unknown) Ur [...] Not Available] unknown) (unknown) (no (unknown) (unknown) [YFFBKGW-RXQ-XJR (units (unknown) date) REDUCTASE unknown) (unknown) (no [...] evening. (units (unknown) date) unknown) Result panel 37 (unknown) (no date) (unknown) (unknown) (no value) (units (un known) unknown) (unknown) (no date) (unknown) (unknown) NO GROWTH (units (unk nown) AFTER 24 unknown) HOURS Result panel 38 (unknown) (no date) (unknown) (unknown) (no value) (units (un known) unknown) (unknown) (no date) (unknown) (unknown) NO GROWTH (units (unk nown) AFTER 24 unknown) HOURS Result panel 39 (unknown) (no (unknown) (unknown) (no value) (units (unk nown) date) unknown) (unknown) (no (unknown) (unknown) Date of Service: (units (unknown) date) 12/08/21 unknown) (unknown) (no (unknown) (unknown) (no value) (units (unk nown) date) unknown) (unknown) (no (unknown) (unknown) - (units (unkno wn) date) unknown) (unknown) (no (unknown) (unknown) 12/07/21 23:05 (units (unknown) date) unknown) (unknown) (no (unknown) (unknown) [facility] (units (unknown) date) [address] unknown) [place] [address] (unknown) (no (unknown) (unknown) Progress Note (units ( unknown) date) unknown) (unknown) (no (unknown) (unknown) (no value) (units (unk nown) date) unknown) (unknown) (no (unknown) (unknown) 12/09/21 (units (unkno wn) date) unknown) (unknown) (no (unknown) (unknown) is admitted for (units (unknown) date) development of unknown) alcohol withdrawal. (unknown) (no (unknown) (unknown) (past 8 hours): (units (unknown) date) unknown) (unknown) (no (unknown) (unknown) [id number] (units (unkn own) date) unknown) (unknown) (no [...] (unknown) (unknown) : 1945 (units (unknown) date) Acct:[id number] unknown) (unknown) (no (unknown) (unknown) Date Patient [...] (unknown) (unknown) Patient: (units (unkno wn) date) Radha Peraza unknown) MR#: M (unknown) (no (unknown) (unknown) [...] date) By:<Electronically unknown) signed by Aditya Tapia D.O.>12/09/21 1658 (unknown) (no (unknown) (unknown) Skin:? Pale,? [...] exclusive of unknown) procedural time. Result panel 40 (unknown) (no date) (unknown) (unknown) NO GROWTH (units (unk nown) AFTER 48 unknown) HOURS (unknown) (no date) (unknown) (unknown) (no value) (units (un known) unknown) Result panel 41 (unknown) (no date) (unknown) (unknown) NO GROWTH (units (unk nown) AFTER 48 unknown) HOURS (unknown) (no date) (unknown) (unknown) (no value) (units (un known) unknown) Result panel 42 (unknown) (no date) (unknown) (unknown) 0.8 % [...] (unknown) 91.9 fL (unkn own) Result panel 43 (unknown) (no date) (unknown) (unknown) > 60 [...] (unknown) 8.2 mg/dL (unkn own) Result panel 44 (unknown) (no (unknown) (unknown) [...] unknown) HOURS NEEDED (unknown) (no (unknown) (unknown) [facility] (units (unknown) date) [address] unknown) [place] [address] (unknown) (no (unknown) (unknown) Label Comments: (units [...] (unknown) date) unknown) (unknown) (no (unknown) (unknown) [id number] (units (unkn own) date) unknown) (unknown) (no [...] (unknown) (unknown) : 1945 (units (unknown) date) Acct:[id number] unknown) (unknown) (no (unknown) (unknown) Kimmy Gomez, [...] Aditya Tapia DO) (unknown) (no (unknown) (unknown) [place] # (Auto) (units ( unknown) date) 800 unknown) (unknown) (no (unknown) (unknown) [place] % (Auto) (units ( unknown) date) 11.9 [...] (unknown) (unknown) Patient: (units (unkno wn) date) aRdha Peraza unknown) MR#: M (unknown) (no (unknown) (unknown) [...] (unkn own) date) evening. unknown) Result panel 45 (unknown) (no date) (unknown) (unknown) 0.8 % [...] (unknown) 93.3 fL (unkn own) Result panel 46 (unknown) (no date) (unknown) (unknown) > 60 [...] (unknown) 8.4 mg/dL (unkn own) Result panel 47 (unknown) (no date) (unknown) (unknown) > 60 [...] Negative (units (unkn own) unknown) Result panel 48 (unknown) (no date) (unknown) (unknown) 0-1 /HPF [...] YELLOW (units (unkn own) unknown) Result panel 49 (unknown) (no date) (unknown) (unknown) 1.5 mmol/L (unkn own) Result panel 50 (unknown) (no date) (unknown) [...] panel 52 (unknown) (no date) (unknown) (unknown) NO GROWTH (units (unk nown) AFTER 48 unknown) HOURS (unknown) (no date) (unknown) (unknown) (no value) (units (un known) unknown) Result panel 53 (unknown) (no date) (unknown) (unknown) 0.8 % [...] (unknown) 91.9 fL (unkn own) Result panel 54 (unknown) (no date) (unknown) (unknown) > 60 [...] (unknown) 8.2 mg/dL (unkn own) Result panel 55 (unknown) (no date) (unknown) (unknown) (no value) (units (un known) unknown) (unknown) (no date) (unknown) (unknown) NO GROWTH (units (unk nown) AFTER 72 unknown) HOURS Result panel 56 (unknown) (no date) (unknown) (unknown) (no value) (units (un known) unknown) (unknown) (no date) (unknown) (unknown) NO GROWTH (units (unk nown) AFTER 72 unknown) HOURS Result panel 57 (unknown) (no (unknown) (unknown) (no value) (units [...] unknown) HOURS NEEDED (unknown) (no (unknown) (unknown) [facility] (units (unknown) date) [address] unknown) [place] [address] (unknown) (no (unknown) (unknown) Label Comments: (units [...] (unknown) date) unknown) (unknown) (no (unknown) (unknown) [id number] (units (unkn own) date) unknown) (unknown) (no [...] (unknown) (unknown) : 1945 (units (unknown) date) Acct:[id number] unknown) (unknown) (no (unknown) (unknown) Kimmy Gomez, [...] Aditya Tapia DO) (unknown) (no (unknown) (unknown) [place] # (Auto) (units ( unknown) date) 800 unknown) (unknown) (no (unknown) (unknown) [place] % (Auto) (units ( unknown) date) 11.9 [...] (unknown) (unknown) Patient: (units (unkno wn) date) JackelineRadha Gisele unknown) MR#: M (unknown) (no (unknown) [...] (unkn own) date) evening. unknown) Result panel 58 (unknown) (no (unknown) (unknown) (no value) (units [...] unknown) HOURS NEEDED (unknown) (no (unknown) (unknown) [facility] (units (unknown) date) [address] unknown) [place] [address] (unknown) (no (unknown) (unknown) Label Comments: (units [...] (unknown) date) unknown) (unknown) (no (unknown) (unknown) [id number] (units (unkn own) date) unknown) (unknown) (no [...] (unknown) (unknown) : 1945 (units (unknown) date) Acct:[id number] unknown) (unknown) (no (unknown) (unknown) Kimmy Gomez, [...] Aditya Tapia DO) (unknown) (no (unknown) (unknown) [place] # (Auto) (units ( unknown) date) 800 unknown) (unknown) (no (unknown) (unknown) [place] % (Auto) (units ( unknown) date) 11.9 [...] (unknown) (unknown) Patient: (units (unkno wn) date) Radha Peraza unknown) MR#: M (unknown) (no (unknown) (unknown) [...] date) By:<Electronically unknown) signed by Ijeoma OrozcoO.>12/10/21 1277 (unknown) (no (unknown) (unknown) Skin:? Pale,? (units [...] (unkn own) date) evening. unknown) Result panel 59 (unknown) (no (unknown) (unknown) (no value) (units [...] date) unknown) (unknown) (no (unknown) (unknown) [address] [place] [address] (units (unknown) date) unknown) (unknown) (no (unknown) [...] own) date) unknown) (unknown) (no (unknown) (unknown) [place], [place] (units ( unknown) date) [address] unknown) (unknown) (no (unknown) (unknown) CT Scan [...] (unknown) date) unknown) (unknown) (no (unknown) (unknown) [facility] (units (unknown) date) unknown) (unknown) (no (unknown) (unknown) [facility] (units (unknown) date) [address] unknown) [place] [address] (unknown) (no (unknown) (unknown) JERKING, (units (unkno [...] unknown) (unknown) (no (unknown) (unknown) rales, or aylin. (units (unknown) date) unknown) (unknown) [...] wn) date) unknown) (unknown) (no (unknown) (unknown) [id number] (units (unkn own) date) unknown) (unknown) (no [...] (unknown) (unknown) Accession Number: (units (unknown) date) [id number] ?? unknown) (unknown) (no (unknown) (unknown) Accession Number: (units (unknown) date) [id number] ?? unknown) (unknown) (no (unknown) (unknown) Acct:[id number] (units (unknown) date) unknown) (unknown) (no (unknown) [...] unknown) Ml Neb (Adult)) 2.5 mg INH [id number] PRN (unknown) (no (unknown) (unknown) Alkaline (units [...] (unknown) (unknown) COMPARISON:? (units (u nknown) date) [facility], unknown) CT, CT CERVICAL SPINE WO CON, 04/16/2021, 12:21. (unknown) (no (unknown) (unknown) COMPARISON:? (units (u nknown) date) [facility], unknown) CT, CT HEAD/BRAIN WO CON, 04/16/2021, [...] unknown) (unknown) (no (unknown) (unknown) Clinical (units (o [...] (unknown) (unknown) Creatinine (units (unk n) date) (0.66-1.25) mg/dL unknown) (unknown) (no (unknown) (unknown) Creatinine 0.88 (units (unknown) date) (0.66-1.25) mg/dL unknown) (unknown) (no (unknown) (unknown) : 1945 (units (unknown) date) Acct:[id number] unknown) (unknown) (no (unknown) (unknown) : 1945 [...] (unknown) (no (unknown) (unknown) Furosemide (units (unk n) date) (Furosemide 40 Mg unknown) Tablet) 40 [...] (unknown) date) unknown) (unknown) (no (unknown) (unknown) Houston,Bharath (units ( unknown) date) unknown) (unknown) (no [...] (unknown) (no (unknown) (unknown) Lisinopril (units (unk n) date) (Lisinopril 10 Mg unknown) Tablet) 10 mg PO DAILY BLOSSOM (unknown) (no (unknown) (unknown) Lisinopril (units (unk n) date) (Lisinopril 20 Mg unknown) Tablet) 20 [...] (unknown) Lymph # (Auto) (units (unknown) date) (7373-4795) /uL unknown) (unknown) (no (unknown) (unknown) Lymph # (Auto) (units (unknown) date) (0151-5217) /uL unknown) (unknown) (no (unknown) (unknown) Lymph # (Auto) (units (unknown) date) 1700 (5606-2815) unknown) /uL (unknown) (no (unknown) (unknown) Lymph [...] date) unknown) (unknown) (no (unknown) (unknown) MR#: [id number] (units (unknown) date) unknown) (unknown) (no (unknown) [...] date) EMS unknown) (unknown) (no (unknown) (unknown) [place] # (Auto) (units ( unknown) date) (0-900) /uL unknown) (unknown) (no (unknown) (unknown) [place] # (Auto) (units ( unknown) date) (0-900) /uL unknown) (unknown) (no (unknown) (unknown) [place] # (Auto) 700 (units (unknown) date) (0-900) /uL unknown) (unknown) (no (unknown) (unknown) [place] % (Auto) (units ( unknown) date) (3-14) % unknown) (unknown) (no (unknown) (unknown) [place] % (Auto) (units ( unknown) date) (3-14) % unknown) (unknown) (no (unknown) (unknown) [place] % (Auto) 9.5 (units (unknown) date) (3-14) [...] Neut # (Auto) (units ( unknown) date) (4625-7362) /uL unknown) (unknown) (no (unknown) (unknown) Neut # (Auto) (units ( unknown) date) (0196-4907) /uL unknown) (unknown) (no (unknown) (unknown) Neut # (Auto) (units ( unknown) date) 4800 (3203-2062) unknown) /uL (unknown) (no (unknown) (unknown) Neut [...] (unknown) (unknown) Patient: (units (unkno wn) date) Radha Peraza unknown) MR#: M (unknown) (no (unknown) (unknown) Patient: (units (unkno wn) date) Radha Peraza unknown) (unknown) (no (unknown) (unknown) Maxim Valadez [...] wheezing, hemoptysis, sputum. (unknown) (no (unknown) (unknown) Radha Peraza (units (unknown) date) D??76??M?? unknown) 5 (unknown) [...] Back Pain unknown) (unknown) (no (unknown) (unknown) Uazffer-QBS-VlS (units (unknown) date) Reductase AdvReac unknown) Mild [...] (unknown) Ur Specific (units (un known) date) [place] unknown) (1.000-1.035) (unknown) (no (unknown) (unknown) Ur Specific (units (un known) date) [place] unknown) (1.000-1.035) (unknown) (no (unknown) (unknown) Ur Specific (units (un known) date) [place] 1.020 unknown) (1.000-1.035) (unknown) (no (unknown) (unknown) [...] Not Available] unknown) (unknown) (no (unknown) (unknown) [IUNJORZ-JSO-BPQ (units (unknown) date) REDUCTASE unknown) (unknown) (no [...] (unknown) buprenorphine, (units (unknown) date) hyoscyamine, unknown) Bptphgm-PEI-HmD Reductase Inhibitor, diazepam (unknown) (no (unknown) (unknown) [...] hypertrophy or exudate. Airway patent. Result panel 60 (unknown) (no date) (unknown) (unknown) (no value) (units (un known) unknown) (unknown) (no date) (unknown) (unknown) NO GROWTH (units (unk nown) AFTER 4 DAYS unknown) Result panel 61 (unknown) (no date) (unknown) (unknown) (no value) (units (un known) unknown) (unknown) (no date) (unknown) (unknown) NO GROWTH (units (unk nown) AFTER 4 DAYS unknown) Result panel 62 (unknown) (no date) (unknown) (unknown) (no value) (units (un known) unknown) (unknown) (no date) (unknown) (unknown) NO GROWTH (units (unk nown) AFTER 5 DAYS unknown) Result panel 63 (unknown) (no date) (unknown) (unknown) (no value) (units (un known) unknown) (unknown) (no date) (unknown) (unknown) NO GROWTH (units (unk nown) AFTER 5 DAYS unknown) Result panel 64 (unknown) (no date) (unknown) (unknown) 0 /uL (unkn own) (unknown) (no date) (unknown) (unknown) 0 /uL (unkn own) (unknown) (no date) (unknown) (unknown) 0.0 % (unkn own) (unknown) (no date) (unknown) (unknown) 0.1 % (unkn own) (unknown) (no date) (unknown) (unknown) [address] /uL (unkn own) (unknown) (no date) (unknown) [...] (unknown) 92.6 fL (unkn own) Result panel 65 (unknown) (no date) (unknown) (unknown) > 60 [...] (unknown) 99 mmol/L (unkn own) Result panel 66 (unknown) (no (unknown) (unknown) (no value) (units [...] date) unknown) (unknown) (no (unknown) (unknown) [address] [...] own) date) unknown) (unknown) (no (unknown) (unknown) [place], [place] (units ( unknown) date) [address] unknown) (unknown) (no (unknown) (unknown) CT Scan [...] unknown) (unknown) (no (unknown) (unknown) Documented By: JJ (units (unknown) date) unknown) (unknown) (no (unknown) [...] (unknown) date) unknown) (unknown) (no (unknown) (unknown) [facility] (units (unknown) date) unknown) (unknown) (no (unknown) (unknown) [facility] (units (unknown) date) [address] unknown) [place] [address] (unknown) (no (unknown) (unknown) JERKING, (units (unkno [...] wn) date) unknown) (unknown) (no (unknown) (unknown) [id number] (units (unkn own) date) unknown) (unknown) (no [...] (unknown) (unknown) Accession Number: (units (unknown) date) [id number] ?? unknown) (unknown) (no (unknown) (unknown) Accession Number: (units (unknown) date) [id number] ?? unknown) (unknown) (no (unknown) (unknown) Acct:[id number] (units (unknown) date) unknown) (unknown) (no (unknown) [...] unknown) Ml Neb (Adult)) 2.5 mg INH [id number] PRN (unknown) (no (unknown) (unknown) Alkaline (units [...] (unknown) (unknown) COMPARISON:? (units (u nknown) date) [facility], unknown) CT, CT CERVICAL SPINE [facility], 04/16/2021, 12:21. (unknown) (no (unknown) (unknown) COMPARISON:? (units (u nknown) date) [facility], unknown) CT, CT HEAD/BRAIN [facility], 04/16/2021, 12:21. (unknown) (no (unknown) (unknown) COPD [...] (unknown) (unknown) : 1945 (units (unknown) date) Acct:[id number] unknown) (unknown) (no (unknown) (unknown) : 1945 [...] (unknown) Lymph # (Auto) (units (unknown) date) (7716-9589) /uL unknown) (unknown) (no (unknown) (unknown) Lymph # (Auto) (units (unknown) date) (5523-4748) /uL unknown) (unknown) (no (unknown) (unknown) Lymph # (Auto) (units (unknown) date) 1700 (9713-2373) unknown) /uL (unknown) (no (unknown) (unknown) Lymph [...] date) unknown) (unknown) (no (unknown) (unknown) MR#: [id number] (units (unknown) date) unknown) (unknown) (no (unknown) [...] date) EMS unknown) (unknown) (no (unknown) (unknown) [place] # (Auto) (units ( unknown) date) (0-900) /uL unknown) (unknown) (no (unknown) (unknown) [place] # (Auto) (units ( unknown) date) (0-900) /uL unknown) (unknown) (no (unknown) (unknown) [place] # (Auto) 700 (units (unknown) date) (0-900) /uL unknown) (unknown) (no (unknown) (unknown) [place] % (Auto) (units ( unknown) date) (3-14) % unknown) (unknown) (no (unknown) (unknown) [place] % (Auto) (units ( unknown) date) (3-14) % unknown) (unknown) (no (unknown) (unknown) [place] % (Auto) 9.5 (units (unknown) date) (3-14) [...] Neut # (Auto) (units ( unknown) date) (1077-7416) /uL unknown) (unknown) (no (unknown) (unknown) Neut # (Auto) (units ( unknown) date) (0272-0288) /uL unknown) (unknown) (no (unknown) (unknown) Neut # (Auto) (units ( unknown) date) 4800 (8665-3022) unknown) /uL (unknown) (no (unknown) (unknown) Neut [...] (unknown) (unknown) Patient: (units (unkno wn) date) Radha Peraza unknown) MR#: M (unknown) (no (unknown) (unknown) Patient: (units (unkno wn) date) Radha Peraza unknown) (unknown) (no (unknown) (unknown) Maxim Valadez [...] wheezing, hemoptysis, sputum. (unknown) (no (unknown) (unknown) Radha Peraza (units (unknown) date) D??76??M?? unknown) 5 (unknown) [...] Back Pain unknown) (unknown) (no (unknown) (unknown) Gwnimiq-RTQ-XzE (units (unknown) date) Reductase AdvReac unknown) Mild [...] (unknown) Ur Specific (units (un known) date) [place] unknown) (1.000-1.035) (unknown) (no (unknown) (unknown) Ur Specific (units (un known) date) [place] unknown) (1.000-1.035) (unknown) (no (unknown) (unknown) Ur Specific (units (un known) date) [place] 1.020 unknown) (1.000-1.035) (unknown) (no (unknown) (unknown) [...] Not Available] unknown) (unknown) (no (unknown) (unknown) [GELRBND-EMU-LKJ (units (unknown) date) REDUCTASE unknown) (unknown) (no [...] (unknown) buprenorphine, (units (unknown) date) hyoscyamine, unknown) Qxffbga-ZXW-BuB Reductase Inhibitor, diazepam (unknown) (no (unknown) (unknown) [...] hypertrophy or exudate. Airway patent. Result panel 67 (unknown) (no (unknown) (unknown) (no value) (units (unk nown) date) unknown) (unknown) (no (unknown) (unknown) [address] [place] [address] (units (unknown) date) unknown) (unknown) (no (unknown) (unknown) [place], [place] (units ( unknown) date) [address] unknown) (unknown) (no (unknown) (unknown) CT Scan Report (units (unknown) date) unknown) (unknown) (no (unknown) (unknown) [facility] (units (unknown) date) unknown) (unknown) (no (unknown) (unknown) Signed (units (unkno wn) date) unknown) (unknown) (no (unknown) (unknown) (no value) (units (unk nown) date) unknown) (unknown) (no (unknown) (unknown) 01/21/22 (units (unkno wn) date) unknown) (unknown) (no (unknown) (unknown) [place], CR, XR (units (unknown) date) LUMBAR SPINE WITH unknown) OBLIQUES PLUS FLEXION EXTENSION, 09/08/2021, (unknown) (no (unknown) (unknown) Approved by: (units (u nknown) date) Bharath Hsu, unknown) Clifford on 01/21/2022 at 15:23 (unknown) (no (unknown) (unknown) Bones: Mild (units (u nknown) date) dextroconvex unknown) scoliotic curvature is seen. There is minimal (unknown) (no (unknown) (unknown) COMPARISON: (units (un known) date) [facility], unknown) CT, CT LUMBAR SPINE WO CON, 12/08/2021, 3:30. (unknown) (no (unknown) (unknown) Dictated by: (units (u nknown) date) dinorah Montanez) Clifford on 01/21/2022 at 15:16 (unknown) (no (unknown) (unknown) FINDINGS: (units (unkn own) date) unknown) (unknown) (no (unknown) (unknown) Hospital, MR, MR (units (unknown) date) LUMBAR SPINE WO unknown) CON, 09/15/2021, 13:04. [facility] (unknown) (no (unknown) (unknown) IMPRESSION: (units [...] (unknown) (unknown) Accession Number: (units (unknown) date) [id number] unknown) (unknown) (no (unknown) (unknown) Age/Sex: 76 / M (units (unknown) date) Date of Service: unknown) (unknown) (no (unknown) (unknown) Artifact from (units ( unknown) date) unknown) (unknown) (no (unknown) (unknown) : 1945 (units (unknown) date) Acct:[id number] unknown) (unknown) (no (unknown) (unknown) [place] (units (unkno wn) date) unknown) (unknown) (no (unknown) (unknown) Loc: CT (units (unkno wn) date) unknown) (unknown) (no (unknown) (unknown) [id number] (units (unk nown) date) unknown) (unknown) (no (unknown) (unknown) Ordering (units (unkno wn) date) Provider: Carlos Montemayor unknown) (unknown) (no (unknown) (unknown) Orthopedic (units (unk nown) date) unknown) (unknown) (no (unknown) (unknown) PROCEDURE: CT (units (unknown) date) LUMBAR SPINE WO unknown) CON (unknown) (no (unknown) (unknown) Patient: (units (unkno wn) date) Radha Peraza D unknown) MR#: (unknown) (no (unknown) (unknown) Procedure: [...] (units (unkno wn) date) unknown) Result panel 68 (unknown) (no date) (unknown) (unknown) Negative (units (unkn own) unknown) Result panel 69 (unknown) (no (unknown) (unknown) (no value) (units (unk nown) date) unknown) (unknown) (no (unknown) (unknown) Date of Service: (units (unknown) date) 02/03/22 unknown) (unknown) (no (unknown) (unknown) 02/03/22 0932 (units ( unknown) date) unknown) (unknown) (no (unknown) (unknown) [facility] (units (unknown) date) [address] unknown) [place] [address] (unknown) (no (unknown) (unknown) Pre-operative (units ( unknown) date) Note unknown) (unknown) (no (unknown) (unknown) (no value) (units (unk nown) date) unknown) (unknown) (no (unknown) (unknown) [id number] (units (unkn own) date) unknown) (unknown) (no [...] (unknown) (unknown) : 1945 (units (unknown) date) Acct:[id number] unknown) (unknown) (no (unknown) (unknown) Deterioration of (units (unknown) date) the patient's unknown) condition or overall health and Delay expected to (unknown) (no (unknown) (unknown) History + (units (unkn own) date) Physical unknown) reviewed/Exam performed by Physician: Yes (unknown) (no (unknown) (unknown) Interval Note (units ( unknown) date) unknown) (unknown) (no (unknown) (unknown) Patient: (units (unkno wn) date) Radha Peraza unknown) MR#: M (unknown) (no (unknown) (unknown) [...] less-positive unknown) ultimate med/surg outcome Result panel 70 (unknown) (no (unknown) (unknown) (no value) (units (unk nown) date) unknown) (unknown) (no (unknown) (unknown) [address] [place] [address] (units (unknown) date) unknown) (unknown) (no (unknown) (unknown) [place], [place] (units ( unknown) date) [address] unknown) (unknown) (no (unknown) (unknown) [facility] (units (unknown) date) unknown) (unknown) (no (unknown) (unknown) Signed (units (unkno wn) date) unknown) (unknown) (no (unknown) (unknown) XRay Report (units (un known) date) unknown) (unknown) (no (unknown) (unknown) (no value) (units (unk nown) date) unknown) (unknown) (no (unknown) (unknown) 02/03/22 (units (unkno wn) date) unknown) (unknown) (no (unknown) (unknown) Approved by: (units (u nknown) date) dionrah Mccullough) Clifford on 02/03/2022 at 16:09 (unknown) (no (unknown) (unknown) Bones: 5 (units (unkn own) date) wbo-yfw-vejyngl unknown) vertebrae are present. There is normal bony (unknown) (no (unknown) (unknown) COMPARISON: (units (un known) date) [facility], unknown) CT, CT LUMBAR SPINE WO CON, 01/21/2022, 14:03. (unknown) (no (unknown) (unknown) Dictated by: (units (u nknown) date) Zeina Saavedra, unknown) Clifford on 02/03/2022 at 16:08 (unknown) (no (unknown) (unknown) FINDINGS: (units (unkn own) date) unknown) (unknown) (no (unknown) (unknown) Hospital, , (units ( unknown) date) L-SPINE 2-3 unknown) [...] Accession (units (unkn own) date) Number: unknown) [id number] (unknown) (no (unknown) (unknown) Age/Sex: 76 / M (units (unknown) date) Date of unknown) Service: (unknown) (no (unknown) (unknown) : 1945 (units (unknown) date) Acct:[id number] unknown) (unknown) (no (unknown) (unknown) [place] (units (unkno wn) date) unknown) (unknown) (no (unknown) (unknown) Loc: ICU (units (unkno wn) date) 226-1 unknown) (unknown) (no (unknown) (unknown) [id number] (units (unk nown) date) unknown) (unknown) (no (unknown) (unknown) Ordering (units (unkno wn) date) Provider: unknown) Carlos Montemayor MD (unknown) (no (unknown) (unknown) PROCEDURE: XR (units (unknown) date) LUMBAR SPINE 2-3V unknown) (unknown) (no (unknown) (unknown) Patient: (units (unkno wn) date) Radha Peraza unknown) MR#: (unknown) (no (unknown) (unknown) Procedure: XR (units ( unknown) date) lumbar spine 2-3V unknown) (unknown) (no (unknown) (unknown) alignment. No (units (unknown) date) unknown) (unknown) (no (unknown) (unknown) anatomic (units (unkno wn) date) unknown) (unknown) (no (unknown) (unknown) fusion from (units (un known) date) unknown) Result panel 71 (unknown) (no date) (unknown) (unknown) (no value) (units (un known) unknown) (unknown) (no date) (unknown) (unknown) Date of (units (unkn own) Service: unknown) 02/03/22 (unknown) (no date) (unknown) (unknown) Anesthesia (units (un known) Note unknown) (unknown) (no date) (unknown) (unknown) [place] (units (unkn own) [facility] 12[address] unknown) [address] [place] [address] (unknown) (no date) (unknown) (unknown) (no value) (units (un known) unknown) (unknown) (no date) (unknown) (unknown) [id number] (units (unk nown) unknown) (unknown) (no date) (unknown) (unknown) Age/Sex: 76 / (units (unknown) M unknown) (unknown) (no date) (unknown) (unknown) : (units (unkn own) 1945 unknown) Acct:[id number] (unknown) (no date) (unknown) (unknown) Patient: (units (unkn own) Radha Peraza unknown) D MR#: M (unknown) (no date) (unknown) (unknown) Provider: (units (unk nown) Carlos Montemayor MD unknown) (unknown) (no date) (unknown) (unknown) Signed By: (units (un known) unknown) Result panel 72 (unknown) (no (unknown) (unknown) (no value) (units (unk nown) date) unknown) (unknown) (no (unknown) (unknown) Date of Service: (units (unknown) date) 02/03/22 unknown) (unknown) (no (unknown) (unknown) 02/03/22 1538 (units ( unknown) date) unknown) (unknown) (no (unknown) (unknown) [facility] (units (unknown) date) [address] [place] [address] unknown) [place] [address] (unknown) (no (unknown) (unknown) Operative Note (units [...] visible motion indicating (unknown) (no (unknown) (unknown) [id number] (units (unkn own) date) unknown) (unknown) (no [...] unknown) fusion (unknown) (no (unknown) (unknown) 7. [place] of bone (units (unknown) date) marrow from [...] (unknown) date) unknown) (unknown) (no (unknown) (unknown) Manager Of Investigations: Elizabet (units (unknown) date) Beh unknown) (unknown) [...] (unknown) (unknown) : 1945 (units (unknown) date) Acct:[id number] unknown) (unknown) (no (unknown) (unknown) Date of [...] unknown) merged the C-arm imaging using the kontoblick robotic (unknown) (no (unknown) (unknown) MARs retractor was (units (unknown) date) inserted using unknown) Ace Metrixsius nagivation guidence. [facility] MARS (unknown) (no (unknown) (unknown) Neuro monitoring [...] (unknown) (unknown) Patient: (units (unkno wn) date) Radha Peraza unknown) MR#: M (unknown) (no (unknown) (unknown) Plan for (units (unkno wn) date) aftercare: unknown) (unknown) (no (unknown) (unknown) Post-op diagnosis: (units (unknown) date) same unknown) (unknown) (no (unknown) (unknown) Post-operative (units (unknown) date) unknown) (unknown) (no (unknown) (unknown) Pre templated (units ( unknown) date) trajectory was used unknown) and guided using the Ace Metrixsius robotic (unknown) (no (unknown) (unknown) Pre-op diagnosis: [...] (unknown) onto the power (units (unknown) date) tank driver and inserted unknown) into the pedicles [...] its maximum height using the Result panel 73 (unknown) (no date) (unknown) (unknown) 0.2 E.U./dL [...] YELLOW (units (unkn own) unknown) Result panel 74 (unknown) (no date) (unknown) (unknown) 0.2 E.U./dL [...] YELLOW (units (unkn own) unknown) Result panel 75 (unknown) (no date) (unknown) (unknown) Negative for (units ( unknown) MRSA unknown) Result panel 76 (unknown) (no date) (unknown) (unknown) 12.6 g/dL (unkn own) (unknown) (no date) (unknown) (unknown) 35.4 % (unkn own) Result panel 77 (unknown) (no (unknown) (unknown) [...] unknown) date) unknown) (unknown) (no (unknown) (unknown) [facility] (units (unknown) date) [address] unknown) [place] [address] (unknown) (no (unknown) (unknown) Laboratory (units (unk [...] currently well controlled (unknown) (no (unknown) (unknown) [id number] (units (unkn own) date) unknown) (unknown) (no [...] (unknown) (unknown) : 1945 (units (unknown) date) Acct:[id number] unknown) (unknown) (no (unknown) (unknown) Date Patient [...] (units (unk nown) date) complaining of unknown) ftlf-jm-ixesymau low back pain this morning. He has (unknown) (no (unknown) (unknown) Patient: (units (unkno wn) date) Radha Peraza unknown) MR#: M (unknown) (no (unknown) (unknown) [...] (unknown) Ur Specific (units (un known) date) [place] 1.025 unknown) (unknown) (no (unknown) (unknown) Ur [...] patient seems to be responding Result panel 78 (unknown) (no date) (unknown) (unknown) (no value) (units (un known) unknown) (unknown) (no date) (unknown) (unknown) [address] (units (unk nown) Street unknown) (unknown) (no date) (unknown) (unknown) [place] (units (unknown) [address] unknown) (unknown) (no date) (unknown) (unknown) [place] (units (unkn own) Hospital unknown) (unknown) (no date) (unknown) (unknown) Signed (units (unkn own) unknown) (unknown) (no date) (unknown) (unknown) XRay Report (units (u nknown) unknown) (unknown) (no date) (unknown) (unknown) (no value) (units (un known) unknown) (unknown) (no date) (unknown) (unknown) 02/04/22 (units (unkn own) unknown) (unknown) (no date) (unknown) (unknown) Approved by: (units ( unknown) Tl unknown) Clifford Jaimes on 02/04/2022 at 19:07 (unknown) (no date) (unknown) (unknown) Bones and (units (unk nown) chest wall: No unknown) suspicious bony lesions. Overlying soft tissues (unknown) (no date) (unknown) (unknown) COMPARISON: (units (u nknown) [place] [facility]) Hospital, CR, XR CHEST 1V, 11/28/2021, 15:25. (unknown) (no date) (unknown) (unknown) Dictated by: (units ( unknown) [place] unknown) Clifford Jaimes on 02/04/2022 at 19:06 [...] (unknown) Accession (units (unk nown) Number: unknown) [id number] (unknown) (no date) (unknown) (unknown) Age/Sex: 76 / (units (unknown) M Date of unknown) Service: (unknown) (no date) (unknown) (unknown) : (units (unkn own) 1945 unknown) Acct:[id number] (unknown) (no date) (unknown) (unknown) Loc: [facility] (units (unkn own) 224-1 unknown) (unknown) (no date) (unknown) (unknown) [id number] (units (un known) unknown) (unknown) (no date) (unknown) (unknown) Ordering (units (unkn own) Provider: unknown) Elizabet Layton P.A-C (unknown) (no date) (unknown) (unknown) PROCEDURE: XR (units (unknown) CHEST 1V unknown) (unknown) (no date) (unknown) (unknown) Patient: (units (unkn own) Radha Peraza unknown) D MR#: (unknown) (no date) (unknown) (unknown) Procedure: XR (units (unknown) chest 1V unknown) (unknown) (no date) (unknown) (unknown) appear (units (unkn own) unknown) (unknown) (no date) (unknown) (unknown) cardiomegaly. (units (unknown) unknown) Result panel 79 (unknown) (no (unknown) (unknown) (no value) (units (unk nown) date) unknown) (unknown) (no (unknown) (unknown) Date of Service: (units (unknown) date) 02/03/22 unknown) (unknown) (no (unknown) (unknown) 02/04/22 1753 (units ( unknown) date) unknown) (unknown) (no (unknown) (unknown) Event Note (units (unk nown) date) unknown) (unknown) (no (unknown) (unknown) [facility] (units (unknown) date) [address] unknown) [place] [address] (unknown) (no (unknown) (unknown) Will order CXR. (units (unknown) date) unknown) (unknown) (no (unknown) (unknown) (no value) (units (unk nown) date) unknown) (unknown) (no (unknown) (unknown) (amenable to (units (u nknown) date) APAP), and has unknown) been noncompliant w/ spirometer use. (unknown) (no (unknown) (unknown) [id number] (units (unkn own) date) unknown) (unknown) (no (unknown) (unknown) Age/Sex: 76 / M (units (unknown) date) unknown) (unknown) (no (unknown) (unknown) : 1945 (units (unknown) date) Acct:[id number] unknown) (unknown) (no (unknown) (unknown) Date Patient [...] (unknown) (unknown) Patient: (units (unkno wn) date) Jackeline,Radha D unknown) MR#: M (unknown) (no (unknown) (unknown) [...] sitting in chair, somnolent and Result panel 80 (unknown) (no (unknown) (unknown) (no value) (units (unk nown) date) unknown) (unknown) (no (unknown) (unknown) Date of Service: (units (unknown) date) 02/03/22 unknown) (unknown) (no (unknown) (unknown) (no value) (units (unk nown) date) unknown) (unknown) (no (unknown) (unknown) - (units (unkno wn) date) unknown) (unknown) (no (unknown) (unknown) 02/04/22 08:53 (units (unknown) date) unknown) (unknown) (no (unknown) (unknown) [facility] (units (unknown) date) [address] unknown) [place] [address] (unknown) (no (unknown) (unknown) Laboratory (units (unk [...] (unknown) date) unknown) (unknown) (no (unknown) (unknown) [id number] (units (unkn own) date) unknown) (unknown) (no [...] (unknown) (unknown) : 1945 (units (unknown) date) Acct:[id number] unknown) (unknown) (no (unknown) (unknown) Date Patient [...] (unknown) (unknown) Patient: (units (unkno wn) date) Radha Peraza [place] unknown) MR#: M (unknown) (no (unknown) [...] type: does not unknown) use Result panel 81 (unknown) (no (unknown) (unknown) (no value) (units (unk nown) date) unknown) (unknown) (no (unknown) (unknown) Date of Service: (units (unknown) date) 02/03/22 unknown) (unknown) (no (unknown) (unknown) (no value) (units (unk nown) date) unknown) (unknown) (no (unknown) (unknown) - (units (unkno wn) date) unknown) (unknown) (no (unknown) (unknown) 02/04/22 08:53 (units (unknown) date) unknown) (unknown) (no (unknown) (unknown) [facility] (units (unknown) date) [address] unknown) [place] [address] (unknown) (no (unknown) (unknown) Laboratory (units (unk [...] (unknown) date) unknown) (unknown) (no (unknown) (unknown) [id number] (units (unkn own) date) unknown) (unknown) (no [...] (unknown) (unknown) : 1945 (units (unknown) date) Acct:[id number] unknown) (unknown) (no (unknown) (unknown) Date Patient [...] (unknown) (unknown) Patient: (units (unkno wn) date) Radha Peraza Gisele unknown) MR#: M (unknown) (no (unknown) [...] been frequently getting up to Result panel 82 (unknown) (no (unknown) (unknown) [...] unknown) date) unknown) (unknown) (no (unknown) (unknown) [facility] (units (unknown) date) [address] unknown) [place] [address] (unknown) (no (unknown) (unknown) Laboratory (units (unk [...] (unknown) date) unknown) (unknown) (no (unknown) (unknown) [id number] (units (unkn own) date) unknown) (unknown) (no [...] (unknown) (unknown) : 1945 (units (unknown) date) Acct:[id number] unknown) (unknown) (no (unknown) (unknown) Date Patient [...] (unknown) (unknown) Patient: (units (unkno wn) date) Radha Peraza unknown) MR#: M (unknown) (no (unknown) (unknown) [...] (units (unknown) date) patient will need unknown) halfway for physical rehabilitation. (unknown) (no (unknown) (unknown) [...] been frequently getting up to Result panel 83 (unknown) (no date) (unknown) (unknown) 1.4 mmol/L (unkn own) Result panel 84 (unknown) (no date) (unknown) (unknown) > 60 [...] (unknown) 90 IU/L (unkn own) Result panel 85 (unknown) (no date) (unknown) (unknown) 21 (units [...] (unknown) 87 % (unkn own) Result panel 86 (unknown) (no date) (unknown) (unknown) 0.6 % [...] (unknown) 92.8 fL (unkn own) Result panel 87 (unknown) (no (unknown) (unknown) (no value) (units (unk nown) date) unknown) (unknown) (no (unknown) (unknown) [address] [place] [address] (units (unknown) date) unknown) (unknown) (no (unknown) (unknown) [place], [place] (units ( unknown) date) [address] unknown) (unknown) (no (unknown) (unknown) CT Scan Report (units (unknown) date) unknown) (unknown) (no (unknown) (unknown) [facility] (units (unknown) date) unknown) (unknown) (no (unknown) [...] (unknown) (unknown) COMPARISON: (units (un known) date) [facility], unknown) CT, CT HEAD/BRAIN WO CON, 12/07/2021, [...] (unknown) (unknown) Accession Number: (units (unknown) date) [id number] unknown) (unknown) (no (unknown) (unknown) Age/Sex: 76 / M (units (unknown) date) Date of Service: unknown) (unknown) (no (unknown) (unknown) : 1945 (units (unknown) date) Acct:[id number] unknown) (unknown) (no (unknown) (unknown) [place] (units (unkno wn) date) unknown) (unknown) (no (unknown) (unknown) Loc: 224-1 (units (unknown) date) unknown) (unknown) (no (unknown) (unknown) [id number] (units (unk nown) date) unknown) (unknown) (no (unknown) (unknown) Ordering (units (unkno wn) date) Provider: unknown) Evan Rangel MD (unknown) (no (unknown) (unknown) PROCEDURE: CT (units (unknown) date) HEAD/BRAIN WO CON unknown) (unknown) (no (unknown) (unknown) Patient: (units (unkno wn) date) Radha Peraza unknown) MR#: (unknown) (no (unknown) (unknown) Procedure: [...] (units (unkno wn) date) unknown) Result panel 88 (unknown) (no (unknown) (unknown) (no value) (units [...] (unknown) date) unknown) (unknown) (no (unknown) (unknown) [facility] (units (unknown) date) [address] unknown) [place] [address] (unknown) (no (unknown) (unknown) [place], (units (unkno [...] (unknown) date) unknown) (unknown) (no (unknown) (unknown) [id number] (units (unkn own) date) unknown) (unknown) (no [...] (unknown) (unknown) : 1945 (units (unknown) date) Acct:[id number] unknown) (unknown) (no (unknown) (unknown) Date Patient [...] wn) date) unknown) (unknown) (no (unknown) (unknown) [place] # (Auto) (units ( unknown) date) unknown) (unknown) (no (unknown) (unknown) [place] # (Auto) (units ( unknown) date) [address] unknown) (unknown) (no (unknown) (unknown) [place] % (Auto) (units ( unknown) date) unknown) (unknown) (no (unknown) (unknown) [place] % (Auto) (units ( unknown) date) 15.8 H unknown) (unknown) (no (unknown) (unknown) Mother (units (unknown) date) Stroke unknown) (unknown) (no (unknown) (unknown) Mr. Peraza is a (units (unknown) date) 76M with [...] (unknown) (unknown) Patient: (units (unkno wn) date) Radha Peraza unknown) MR#: M (unknown) (no (unknown) (unknown) [...] nknown) date) unknown) (unknown) (no (unknown) (unknown) Dy[place]uik-FFY-NuA (units (unknown) date) Reductase AdvReac unknown) Mild [...] Not Available] unknown) (unknown) (no (unknown) (unknown) [UDFXMQB-YST-KNA (units (unknown) date) REDUCTASE unknown) (unknown) (no [...] Severe Paranoia Verified 02/03/22 08:04 Result panel 89 (unknown) (no (unknown) (unknown) [...] (unknown) date) unknown) (unknown) (no (unknown) (unknown) [facility] (units (unknown) date) [address] unknown) [place] [address] (unknown) (no (unknown) (unknown) [place], (units (unkno [...] polypharmacy, limit opiates (unknown) (no (unknown) (unknown) [id number] (units (unkn own) date) unknown) (unknown) (no [...] (unknown) (unknown) : 1945 (units (unknown) date) Acct:[id number] unknown) (unknown) (no (unknown) (unknown) Date Patient [...] wn) date) unknown) (unknown) (no (unknown) (unknown) [place] # (Auto) (units ( unknown) date) unknown) (unknown) (no (unknown) (unknown) [place] # (Auto) (units ( unknown) date) 1300 H unknown) (unknown) (no (unknown) (unknown) [place] % (Auto) (units ( unknown) date) unknown) (unknown) (no (unknown) (unknown) [place] % (Auto) (units ( unknown) date) 15.8 H unknown) (unknown) (no (unknown) (unknown) Mother (units (unknown) date) Stroke unknown) (unknown) (no (unknown) (unknown) Mr. Peraza is a (units (unknown) date) 76M with PMH afib, unknown) COPD, CAD, prior aortic disection s/p graft, (unknown) (no (unknown) (unknown) Mr. Peraza was (units (unknown) date) admitted for an [...] (unknown) (unknown) Patient: (units (unkno wn) date) JackelineRadha pike unknown) MR#: M (unknown) (no (unknown) [...] (unknown) Proxy: Milana (units (u nknown) date) [place] unknown) (unknown) (no (unknown) (unknown) Pulse Oximetry [...] nknown) date) unknown) (unknown) (no (unknown) (unknown) Swnygzt-MST-ChL (units (unknown) date) Reductase AdvReac unknown) Mild [...] Not Available] unknown) (unknown) (no (unknown) (unknown) [RDANGCA-VGW-ULO (units (unknown) date) REDUCTASE unknown) (unknown) (no [...] Severe Paranoia Verified 02/03/22 08:04 Result panel 90 (unknown) (no (unknown) (unknown) (no value) (units (unk nown) date) unknown) (unknown) (no (unknown) (unknown) (no value) (units (unk nown) date) unknown) (unknown) (no (unknown) (unknown) [address] [place] [address] (units (unknown) date) unknown) (unknown) (no (unknown) (unknown) [place], [place] (units ( unknown) date) [address] unknown) (unknown) (no (unknown) (unknown) CT Scan Report (units (unknown) date) unknown) (unknown) (no (unknown) (unknown) [facility] (units (unknown) date) unknown) (unknown) (no (unknown) [...] nknown) date) Maxim Valadez unknownRui Horton on 02/05/2022 at 22:28 (unknown) (no (unknown) (unknown) Biliary ducts: (units (unknown) date) No biliary ductal unknown) dilatation. (unknown) (no (unknown) (unknown) Bladder: (units (unkno wn) date) Unremarkable. unknown) (unknown) (no (unknown) (unknown) Bones: There are (units (unknown) date) postsurgical unknown) changes consistent with interval revision in the (unknown) (no (unknown) (unknown) COMPARISON: (units (un known) date) [facility], unknown) CT, CT LUMBAR SPINE WO [facility], 01/21/2022, 14:03. (unknown) (no (unknown) (unknown) Dictated by: (units (u nknown) date) Maxim Valadez, unknownRui Horton on 02/05/2022 at 22:15 (unknown) (no (unknown) [...] (unknown) (unknown) Accession Number: (units (unknown) date) [id number] unknown) (unknown) (no (unknown) (unknown) Age/Sex: 76 / M (units (unknown) date) Date of Service: unknown) (unknown) (no (unknown) (unknown) : 1945 (units (unknown) date) Acct:[id number] unknown) (unknown) (no (unknown) (unknown) [place] (units (unkno wn) date) unknown) (unknown) (no (unknown) (unknown) Loc: 224-1 (units (unknown) date) unknown) (unknown) (no (unknown) (unknown) [id number] (units (unk nown) date) unknown) (unknown) (no (unknown) (unknown) Ordering (units (unkno wn) date) Provider: unknown) Evan Rangel MD (unknown) (no (unknown) (unknown) PROCEDURE: CT (units (unknown) date) ABDOMEN PELVIS W unknown) CON (unknown) (no (unknown) (unknown) Patient: (units (unkno wn) date) Radha Peraza Gisele unknown) MR#: (unknown) (no (unknown) (unknown) [...] (units (unkno wn) date) unknown) Result panel 91 (unknown) (no date) (unknown) (unknown) 0.6 % [...] (unknown) 92.4 fL (unkn own) Result panel 92 (unknown) (no date) (unknown) (unknown) > 60 [...] (unknown) 98 IU/L (unkn own) Result panel 93 (unknown) (no (unknown) (unknown) (no value) (units (unk nown) date) unknown) (unknown) (no (unknown) (unknown) Date of Service: (units (unknown) date) 02/03/22 unknown) (unknown) (no (unknown) (unknown) (no value) (units (unk nown) date) unknown) (unknown) (no (unknown) (unknown) - (units (unkno wn) date) unknown) (unknown) (no (unknown) (unknown) 02/06/22 07:06 (units (unknown) date) unknown) (unknown) (no (unknown) (unknown) [facility] (units (unknown) date) [address] unknown) [place] [address] (unknown) (no (unknown) (unknown) Laboratory (units (unk [...] (unknown) date) unknown) (unknown) (no (unknown) (unknown) [id number] (units (unkn own) date) unknown) (unknown) (no [...] (unknown) (unknown) : 1945 (units (unknown) date) Acct:[id number] unknown) (unknown) (no (unknown) (unknown) Date Patient [...] Evan Rangel MD) (unknown) (no (unknown) (unknown) [place] # (Auto) (units ( unknown) date) unknown) (unknown) (no (unknown) (unknown) [place] # (Auto) (units ( unknown) date) [address] unknown) (unknown) (no (unknown) (unknown) [place] # (Auto) (units ( unknown) date) 1300 H unknown) (unknown) (no (unknown) (unknown) [place] % (Auto) (units ( unknown) date) unknown) (unknown) (no (unknown) (unknown) [place] % (Auto) (units ( unknown) date) 14.2 H unknown) (unknown) (no (unknown) (unknown) [place] % (Auto) (units ( unknown) date) 15.8 [...] (unknown) (unknown) Patient: (units (unkno wn) date) JackelineRadha Jaquez unknown) MR#: M (unknown) (no (unknown) (unknown) [...] unremarkable. unknown) Cooperative with exam this morning; 12/10 (unknown) (no (unknown) (unknown) household (units (unkn [...] (u nknown) date) yesterday. unknown) Result panel 94 (unknown) (no (unknown) (unknown) (no value) (units [...] (unknown) date) unknown) (unknown) (no (unknown) (unknown) [facility] (units (unknown) date) [address] unknown) [place] [address] (unknown) (no (unknown) (unknown) Laboratory (units (unk [...] (unknown) date) unknown) (unknown) (no (unknown) (unknown) [id number] (units (unkn own) date) unknown) (unknown) (no [...] (unknown) (unknown) : 1945 (units (unknown) date) Acct:[id number] unknown) (unknown) (no (unknown) (unknown) Date Patient [...] Evan Rangel MD) (unknown) (no (unknown) (unknown) [place] # (Auto) (units ( unknown) date) unknown) (unknown) (no (unknown) (unknown) [place] # (Auto) (units ( unknown) date) [address] unknown) (unknown) (no (unknown) (unknown) [place] # (Auto) (units ( unknown) date) 1300 H unknown) (unknown) (no (unknown) (unknown) [place] % (Auto) (units ( unknown) date) unknown) (unknown) (no (unknown) (unknown) [place] % (Auto) (units ( unknown) date) 14.2 H unknown) (unknown) (no (unknown) (unknown) [place] % (Auto) (units ( unknown) date) 15.8 [...] (unknown) (unknown) Patient: (units (unkno wn) date) Radha Peraza Gisele unknown) MR#: M (unknown) (no (unknown) [...] (u nknown) date) yesterday. unknown) Result panel 95 (unknown) (no (unknown) (unknown) (no value) (units [...] unknown) date) unknown) (unknown) (no (unknown) (unknown) [facility] (units (unknown) date) [address] unknown) [place] [address] (unknown) (no (unknown) (unknown) Laboratory (units (unk [...] (unknown) date) unknown) (unknown) (no (unknown) (unknown) [id number] (units (unkn own) date) unknown) (unknown) (no [...] (unknown) (unknown) : 1945 (units (unknown) date) Acct:[id number] unknown) (unknown) (no (unknown) (unknown) Date Patient [...] Evan Rangel MD) (unknown) (no (unknown) (unknown) [place] # (Auto) (units ( unknown) date) unknown) (unknown) (no (unknown) (unknown) [place] # (Auto) (units ( unknown) date) [address] unknown) (unknown) (no (unknown) (unknown) [place] # (Auto) (units ( unknown) date) 1300 H unknown) (unknown) (no (unknown) (unknown) [place] % (Auto) (units ( unknown) date) unknown) (unknown) (no (unknown) (unknown) [place] % (Auto) (units ( unknown) date) 14.2 H unknown) (unknown) (no (unknown) (unknown) [place] % (Auto) (units ( unknown) date) 15.8 [...] (unknown) (unknown) Patient: (units (unkno wn) date) Radha Peraza unknown) MR#: M (unknown) (no (unknown) (unknown) [...] laminectomy - (unknown) (no (unknown) (unknown) robot Dawei Albina, (units (unknown) date) MD unknown) (unknown) (no [...] unknown) appear to be normal. Result panel 96 (unknown) (no date) (unknown) (unknown) 0.2 E.U./dL [...] YELLOW (units (unkn own) unknown) Result panel 97 (unknown) (no date) (unknown) (unknown) 0-1/HPF (units [...] YELLOW (units (unkn own) unknown) Result panel 98 (unknown) (no (unknown) [...] unknown) date) unknown) (unknown) (no (unknown) (unknown) [facility] (units (unknown) date) [address] unknown) [place] [address] (unknown) (no (unknown) (unknown) Laboratory (units (unk [...] and recent surgery (unknown) (no (unknown) (unknown) [id number] (units (unkn own) date) unknown) (unknown) (no [...] (unknown) (unknown) : 1945 (units (unknown) date) Acct:[id number] unknown) (unknown) (no (unknown) (unknown) Date Patient [...] Evan Rangel MD) (unknown) (no (unknown) (unknown) [place] # (Auto) (units ( unknown) date) unknown) (unknown) (no (unknown) (unknown) [place] # (Auto) (units ( unknown) date) 1300 H 1100 H unknown) (unknown) (no (unknown) (unknown) [place] % (Auto) (units ( unknown) date) unknown) (unknown) (no (unknown) (unknown) [place] % (Auto) (units ( unknown) date) 15.8 H 14.2 H unknown) (unknown) (no (unknown) (unknown) Mother (units (unknown) date) Stroke unknown) (unknown) (no (unknown) (unknown) Mr. Peraza was (units (unknown) date) admitted for an [...] (unknown) (unknown) Patient: (units (unkno wn) date) Radha Peraza unknown) MR#: M (unknown) (no (unknown) (unknown) [...] (unknown) Proxy: Milana (units (u nknown) date) [place] unknown) (unknown) (no (unknown) (unknown) Pulse Oximetry [...] (unknown) Ur Specific (units (un known) date) [place] unknown) (unknown) (no (unknown) (unknown) Ur Specific (units (un known) date) [place] 1.010 unknown) (unknown) (no (unknown) (unknown) Urine [...] exclusive of unknown) procedural time. Result panel 99 (unknown) (no date) (unknown) (unknown) (no value) (units (un known) unknown) (unknown) (no date) (unknown) (unknown) NO GROWTH (units (unk nown) AFTER 24 unknown) HOURS Result panel 100 (unknown) (no (unknown) (unknown) [...] notified: Yes unknown) (unknown) (no (unknown) (unknown) [facility] (units (unknown) date) [address] [place] [address] unknown) [place] [address] (unknown) (no (unknown) (unknown) Label Comments: (units [...] (unknown) date) unknown) (unknown) (no (unknown) (unknown) [id number] (units (unkn own) date) unknown) (unknown) (no [...] unknown) fusion (unknown) (no (unknown) (unknown) 7. [place] of bone (units (unknown) date) marrow from iliac unknown) crest through a separate incision (unknown) (no (unknown) (unknown) 02/16/2022 @ 1:00 (units (unknown) date) pm at Commercial unknown) [employer] office in [place].) (unknown) (no (unknown) (unknown) 8. Utilization of [...] known) date) unknown) (unknown) (no (unknown) (unknown) Manager Of Investigations: Elizabet (units (unknown) date) Beh unknown) (unknown) [...] (no (unknown) (unknown) Consult to (units (unk n) date) Occupational unknown) Therapy Evaluate + Treat (unknown) (no (unknown) (unknown) Consult to (units (unk n) date) Physical Therapy unknown) Evaluate + Treat (unknown) (no (unknown) (unknown) Consult to (units (unk n) date) Respiratory Therapy unknown) Evaluate + Treat (unknown) (no (unknown) (unknown) Consults: (units (unkn own) date) unknown) (unknown) (no (unknown) (unknown) Continued (units (unkn own) date) unknown) (unknown) (no (unknown) (unknown) Coronary artery (units (unknown) date) disease unknown) (unknown) (no (unknown) (unknown) : 1945 (units (unknown) date) Acct:[id number] unknown) (unknown) (no (unknown) (unknown) Kimmy Gomez [...] Stroke unknown) (unknown) (no (unknown) (unknown) Mr Zamora (units (u nknown) date) hospital course was [...] (unknown) (unknown) Patient: (units (unkno wn) date) Radha Peraza unknown) MR#: M (unknown) (no (unknown) (unknown) [...] (unknown) (unknown) Provider: (units (unkn own) date) Beh,Elizabet P.A-C unknown) (unknown) (no (unknown) (unknown) Pulse [...] (unkno wn) date) By:<Electronically unknown) signed by Eilzabet Layton> (unknown) (no (unknown) (unknown) Skin/Wound/Dressin (units [...] type: does not use unknown) Result panel 101 (unknown) (no (unknown) (unknown) (no value) (units (unk nown) date) unknown) (unknown) (no (unknown) (unknown) Date of Service: (units (unknown) date) 02/03/22 unknown) (unknown) (no (unknown) (unknown) (no value) (units (unk nown) date) unknown) (unknown) (no (unknown) (unknown) - (units (unkno wn) date) unknown) (unknown) (no (unknown) (unknown) 02/06/22 07:06 (units (unknown) date) unknown) (unknown) (no (unknown) (unknown) [facility] (units (unknown) date) [address] unknown) [place] [address] (unknown) (no (unknown) (unknown) Progress Note (units ( unknown) date) unknown) (unknown) (no (unknown) (unknown) (no value) (units (unk nown) date) unknown) (unknown) (no (unknown) (unknown) 02/07/22 (units (unkno wn) date) unknown) (unknown) (no (unknown) (unknown) (past 8 hours): (units (unknown) date) unknown) (unknown) (no (unknown) (unknown) [id number] (units (unkn own) date) unknown) (unknown) (no [...] (unknown) (unknown) : 1945 (units (unknown) date) Acct:[id number] unknown) (unknown) (no (unknown) (unknown) Date Patient [...] (unknown) (unknown) Patient: (units (unkno wn) date) Radha Peraza unknown) MR#: M (unknown) (no (unknown) (unknown) [...] exclusive of unknown) procedural time. Result panel 102 (unknown) (no (unknown) (unknown) (no value) (units (unk nown) date) unknown) (unknown) (no (unknown) (unknown) Date of Service: (units (unknown) date) 02/03/22 unknown) (unknown) (no (unknown) (unknown) (no value) (units (unk nown) date) unknown) (unknown) (no (unknown) (unknown) - (units (unkno wn) date) unknown) (unknown) (no (unknown) (unknown) 02/06/22 07:06 (units (unknown) date) unknown) (unknown) (no (unknown) (unknown) [facility] (units (unknown) date) [address] unknown) [place] [address] (unknown) (no (unknown) (unknown) Progress Note (units ( unknown) date) unknown) (unknown) (no (unknown) (unknown) (no value) (units (unk nown) date) unknown) (unknown) (no (unknown) (unknown) 02/07/22 (units (unkno wn) date) unknown) (unknown) (no (unknown) (unknown) (past 8 hours): (units (unknown) date) unknown) (unknown) (no (unknown) (unknown) [id number] (units (unkn own) date) unknown) (unknown) (no [...] (unknown) (unknown) : 1945 (units (unknown) date) Acct:[id number] unknown) (unknown) (no (unknown) (unknown) Date Patient [...] (unknown) (unknown) Patient: (units (unkno wn) date) Radha Peraza unknown) MR#: M (unknown) (no (unknown) (unknown) [...] (units ( unknown) date) unknown) Result panel 103 (unknown) (no (unknown) (unknown) (no value) (units (unk nown) date) unknown) (unknown) (no (unknown) (unknown) Date of Service: (units (unknown) date) 02/03/22 unknown) (unknown) (no (unknown) (unknown) (no value) (units (unk nown) date) unknown) (unknown) (no (unknown) (unknown) - (units (unkno wn) date) unknown) (unknown) (no (unknown) (unknown) 02/06/22 07:06 (units (unknown) date) unknown) (unknown) (no (unknown) (unknown) [facility] (units (unknown) date) [address] unknown) [place] [address] (unknown) (no (unknown) (unknown) Progress Note (units [...] 400 mg at (unknown) (no (unknown) (unknown) [id number] (units (unkn own) date) unknown) (unknown) (no [...] (unknown) (unknown) : 1945 (units (unknown) date) Acct:[id number] unknown) (unknown) (no (unknown) (unknown) Date Patient [...] [facility]) (unknown) (no (unknown) (unknown) Radha Peraza (units (unknown) date) is a 76 year [...] (unknown) (unknown) Patient: (units (unkno wn) date) Radha Peraza unknown) MR#: M (unknown) (no (unknown) (unknown) [...] date) systolic unknown) function.: No Result panel 104 (unknown) (no (unknown) (unknown) (no value) (units (unk nown) date) unknown) (unknown) (no (unknown) (unknown) Date of Service: (units (unknown) date) 02/03/22 unknown) (unknown) (no (unknown) (unknown) (no value) (units (unk nown) date) unknown) (unknown) (no (unknown) (unknown) - (units (unkno wn) date) unknown) (unknown) (no (unknown) (unknown) 02/06/22 07:06 (units (unknown) date) unknown) (unknown) (no (unknown) (unknown) [facility] (units (unknown) date) [address] unknown) [place] [address] (unknown) (no (unknown) (unknown) Progress Note (units [...] and recent surgery (unknown) (no (unknown) (unknown) [id number] (units (unkn own) date) unknown) (unknown) (no [...] (unknown) (unknown) : 1945 (units (unknown) date) Acct:[id number] unknown) (unknown) (no (unknown) (unknown) Date Patient [...] [facility]) (unknown) (no (unknown) (unknown) Radha Peraza (units (unknown) date) is a 76 year [...] (unknown) (unknown) Patient: (units (unkno wn) date) Radha Peraza unknown) MR#: M (unknown) (no (unknown) (unknown) [...] date) systolic unknown) function.: No Result panel 105 (unknown) (no (unknown) (unknown) [...] unknown) date) unknown) (unknown) (no (unknown) (unknown) [facility] (units (unknown) date) [address] [place] [address] unknown) [place] [address] (unknown) (no (unknown) (unknown) Progress Note (units [...] and recent surgery (unknown) (no (unknown) (unknown) [id number] (units (unkn own) date) unknown) (unknown) (no [...] (unknown) (unknown) : 1945 (units (unknown) date) Acct:[id number] unknown) (unknown) (no (unknown) (unknown) Date Patient [...] [facility]) (unknown) (no (unknown) (unknown) Radha Peraza (units (unknown) date) is a 76 year [...] (unknown) (unknown) Patient: (units (unkno wn) date) Radha Peraza unknown) MR#: M (unknown) (no (unknown) (unknown) [...] unknown) with you. (unknown) (no (unknown) (unknown) Kenny' Criteria (units (unknown) date) for PE unknown) [...] date) systolic unknown) function.: No Result panel 106 (unknown) (no (unknown) (unknown) (no value) (units [...] unknown) date) unknown) (unknown) (no (unknown) (unknown) [facility] (units (unknown) date) [address] [place] [address] unknown) [place] [address] (unknown) (no (unknown) (unknown) Progress Note (units [...] and recent surgery (unknown) (no (unknown) (unknown) [id number] (units (unkn own) date) unknown) (unknown) (no [...] (unknown) (unknown) : 1945 (units (unknown) date) Acct:[id number] unknown) (unknown) (no (unknown) (unknown) Date Patient [...] [facility]) (unknown) (no (unknown) (unknown) Radha Peraza (units (unknown) date) is a 76 year [...] (unknown) (unknown) Patient: (units (unkno wn) date) JackelineRadha unknown) MR#: M (unknown) (no (unknown) (unknown) [...] date) systolic unknown) function.: No Result panel 107 (unknown) (no (unknown) (unknown) (no value) (units [...] date) Shiga Toxin 2 unknown) Result panel 108 (unknown) (no date) (unknown) (unknown) NO GROWTH (units (unk nown) AFTER 48 unknown) HOURS (unknown) (no date) (unknown) (unknown) (no value) (units (un known) unknown) Result panel 109 (unknown) (no (unknown) (unknown) (no value) (units [...] (unknown) date) unknown) (unknown) (no (unknown) (unknown) [facility] (units (unknown) date) [address] unknown) [place] [address] (unknown) (no (unknown) (unknown) [place], (units (unkno [...] date) grams unknown) (unknown) (no (unknown) (unknown) [id number] (units (unkn own) date) unknown) (unknown) (no [...] (unknown) (unknown) : 1945 (units (unknown) date) Acct:[id number] unknown) (unknown) (no (unknown) (unknown) Kimmy Gomez, [...] (unknown) (unknown) Patient: (units (unkno wn) date) Radha Peraza Gisele unknown) MR#: M (unknown) (no (unknown) [...] DISCHARGED FROM 02/07 (unknown) (no (unknown) (unknown) Ipwgttf-ENF-UqX (units (unknown) date) Reductase AdvReac unknown) Mild [...] nknown) date) unknown) (unknown) (no (unknown) (unknown) [VJTGCLO-MCR-EZL (units (unknown) date) REDUCTASE unknown) (unknown) (no [...] Severe Paranoia Verified 02/08/22 08:38 Result panel 110 (unknown) (no (unknown) (unknown) (no value) (units (unk nown) date) unknown) (unknown) (no (unknown) (unknown) [address] [place] [address] (units (unknown) date) unknown) (unknown) (no (unknown) (unknown) [place], [place] (units ( unknown) date) [address] unknown) (unknown) (no (unknown) (unknown) [facility] (units (unknown) date) unknown) (unknown) (no (unknown) (unknown) Signed (units (unkno wn) date) unknown) (unknown) (no (unknown) (unknown) XRay Report (units (un known) date) unknown) (unknown) (no (unknown) (unknown) (no value) (units (unk nown) date) unknown) (unknown) (no (unknown) (unknown) 02/08/22 (units (unkno wn) date) unknown) (unknown) (no (unknown) (unknown) Approved by: (units (u nknown) date) mohamud Metcalf M.D. on 02/08/2022 at 8:42 (unknown) (no (unknown) (unknown) Bones and chest (units (unknown) date) wall: No unknown) suspicious bony lesions. Overlying soft tissues (unknown) (no (unknown) (unknown) COMPARISON: (units (un known) date) [facility], unknown) CR, XR CHEST 1V, 02/04/2022, 18:16. (unknown) (no (unknown) (unknown) Dictated by: (units (u nknown) date) mohamud Metcalf M.D. on 02/08/2022 at 8:40 (unknown) (no (unknown) [...] (unknown) (unknown) Accession Number: (units (unknown) date) [id number] unknown) (unknown) (no (unknown) (unknown) Age/Sex: 76 / M (units (unknown) date) Date of Service: unknown) (unknown) (no (unknown) (unknown) : 1945 (units (unknown) date) Acct:[id number] unknown) (unknown) (no (unknown) (unknown) Loc: ED (units (unkno wn) date) unknown) (unknown) (no (unknown) (unknown) [id number] (units (unk nown) date) unknown) (unknown) (no (unknown) (unknown) Ordering (units (unkno wn) date) Provider: unknown) Bridgett Fletcher D.O. (unknown) (no (unknown) (unknown) PROCEDURE: XR (units (unknown) date) CHEST 1V unknown) (unknown) (no (unknown) (unknown) Patient: (units (unkno wn) date) Jackeline,Radha Gisele unknown) MR#: (unknown) (no (unknown) (unknown) Platelike (units (unkn own) date) unknown) (unknown) (no (unknown) (unknown) Procedure: XR (units ( unknown) date) chest 1V unknown) (unknown) (no (unknown) (unknown) appear (units (unkno wn) date) unknown) Result panel 111 (unknown) (no (unknown) [...] (unknown) date) unknown) (unknown) (no (unknown) (unknown) [facility] (units (unknown) date) [address] [place] [address] unknown) [place] [address] (unknown) (no (unknown) (unknown) [place], (units (unkno [...] date) grams unknown) (unknown) (no (unknown) (unknown) [id number] (units (unkn own) date) unknown) (unknown) (no [...] (unknown) (unknown) : 1945 (units (unknown) date) Acct:[id number] unknown) (unknown) (no (unknown) (unknown) Kimmy Gomez, [...] (unknown) (unknown) Patient: (units (unkno wn) date) Radha Peraza unknown) MR#: M (unknown) (no (unknown) (unknown) [...] DISCHARGED FROM 02/07 (unknown) (no (unknown) (unknown) Mowooit-RNM-DzJ (units (unknown) date) Reductase AdvReac unknown) Mild [...] (unknown) date) unknown) (unknown) (no (unknown) (unknown) [[id number]-ZBY (units (unknown) date) REDUCTASE unknown) (unknown) (no [...] Severe Paranoia Verified 02/08/22 08:38 Result panel 112 (unknown) (no date) (unknown) (unknown) 0 /uL [...] (unknown) 92.8 fL (unkn own) Result panel 113 (unknown) (no (unknown) (unknown) [...] (unknown) date) unknown) (unknown) (no (unknown) (unknown) [facility] (units (unknown) date) [address] [place] [address] unknown) [place] [address] (unknown) (no (unknown) (unknown) [place], (units (unkno [...] date) grams unknown) (unknown) (no (unknown) (unknown) [id number] (units (unkn own) date) unknown) (unknown) (no [...] (unknown) (unknown) : 1945 (units (unknown) date) Acct:[id number] unknown) (unknown) (no (unknown) (unknown) Kimmy Gomez, [...] (unknown) (unknown) Patient: (units (unkno wn) date) Radha Peraza Gisele unknown) MR#: M (unknown) (no (unknown) [...] DISCHARGED FROM 02/07 (unknown) (no (unknown) (unknown) Gwuxkjk-EJK-NlX (units (unknown) date) Reductase AdvReac unknown) Mild [...] (unknown) date) unknown) (unknown) (no (unknown) (unknown) [EWVOGZV-EPA-IUG (units (unknown) date) REDUCTASE unknown) (unknown) (no [...] (units (unk nown) date) grossly intact. unknown) [employer] strength equal bilaterally able lift both legs [...] having lumbar fusion he during Result panel 114 (unknown) (no date) (unknown) (unknown) 1.6 mmol/L (unkn own) Result panel 115 (unknown) (no date) (unknown) (unknown) > 60 [...] (unknown) 849 U/L (unkn own) Result panel 116 (unknown) (no date) (unknown) (unknown) Negative (units (unkn own) unknown) Result panel 117 (unknown) (no date) (unknown) (unknown) > 60 [...] (unknown) 849 U/L (unkn own) Result panel 118 (unknown) (no (unknown) (unknown) (no value) (units [...] (unknown) date) unknown) (unknown) (no (unknown) (unknown) [facility] (units (unknown) date) [address] [place] [address] unknown) [place] [address] (unknown) (no (unknown) (unknown) [place], (units (unkno [...] date) grams unknown) (unknown) (no (unknown) (unknown) [id number] (units (unkn own) date) unknown) (unknown) (no [...] BUN/Creatinine (units (unknown) date) Ratio 18.8 unknown) (-) (unknown) (no (unknown) (unknown) Baso [...] (unknown) (unknown) : 1945 (units (unknown) date) Acct:[id number] unknown) (unknown) (no (unknown) (unknown) Kimmy Gomez, [...] (unknown) Lymph # (Auto) (units (unknown) date) (6003-0520) /uL unknown) (unknown) (no (unknown) (unknown) Lymph # (Auto) (units (unknown) date) 700 L unknown) (7974-1405) /uL (unknown) (no (unknown) (unknown) Lymph % [...] date) Ambulatory unknown) (unknown) (no (unknown) (unknown) [place] # (Auto) (units ( unknown) date) (0-900) /uL unknown) (unknown) (no (unknown) (unknown) [place] # (Auto) (units ( unknown) date) 800 (0-900) unknown) /uL (unknown) (no (unknown) (unknown) [place] % (Auto) (units ( unknown) date) (3-14) % unknown) (unknown) (no (unknown) (unknown) [place] % (Auto) (units ( unknown) date) 14.4 [...] Neut # (Auto) (units ( unknown) date) (8654-3765) /uL unknown) (unknown) (no (unknown) (unknown) Neut # (Auto) (units ( unknown) date) 4200 unknown) (7904-9974) /uL (unknown) (no (unknown) (unknown) Neut % [...] (unknown) (unknown) Patient: (units (unkno wn) date) JackelineRadha Gisele unknown) MR#: M (unknown) (no (unknown) [...] DISCHARGED FROM 02/07 (unknown) (no (unknown) (unknown) Huqccnn-JLC-FdN (units (unknown) date) Reductase AdvReac unknown) Mild [...] Not Available] unknown) (unknown) (no (unknown) (unknown) [ANVUNIJ-WFQ-XUF (units (unknown) date) REDUCTASE unknown) (unknown) (no [...] Vitamins unknown) 1 tab PO DAILY ##0 12/20/02/03/22 (unknown) (no (unknown) (unknown) oxycodone 5 mg [...] (units (unk nown) date) grossly intact. 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 - (units (unknown) date) Acute Care Clinical Nurse Specialist unknown) Stat (unknown) (no (unknown) (unknown) Consult [...] (unknown) (unknown) : 1945 (units (unknown) date) Acct:[id number] unknown) (unknown) (no (unknown) (unknown) Kimmy Gomez, [...] (unknown) Lymph # (Auto) (units (unknown) date) (6828-7785) /uL unknown) (unknown) (no (unknown) (unknown) Lymph # (Auto) (units (unknown) date) 700 L unknown) (6329-1851) /uL (unknown) (no (unknown) (unknown) Lymph % [...] date) Ambulatory unknown) (unknown) (no (unknown) (unknown) [place] # (Auto) (units ( unknown) date) (0-900) /uL unknown) (unknown) (no (unknown) (unknown) [place] # (Auto) (units ( unknown) date) 800 (0-900) unknown) /uL (unknown) (no (unknown) (unknown) [place] % (Auto) (units ( unknown) date) (3-14) % unknown) (unknown) (no (unknown) (unknown) [place] % (Auto) (units ( unknown) date) 14.4 [...] Neut # (Auto) (units ( unknown) date) (2046-6704) /uL unknown) (unknown) (no (unknown) (unknown) Neut # (Auto) (units ( unknown) date) 4200 unknown) (4717-6086) /uL (unknown) (no (unknown) (unknown) Neut % [...] (unknown) (unknown) Patient: (units (unkno wn) date) Radha Peraza Gisele unknown) MR#: M (unknown) (no (unknown) [...] DISCHARGED FROM 02/07 (unknown) (no (unknown) (unknown) Zyuuiha-GLC-AcZ (units (unknown) date) Reductase AdvReac unknown) Mild [...] Not Available] unknown) (unknown) (no (unknown) (unknown) [EXSEQVT-RWN-BVY (units (unknown) date) REDUCTASE unknown) (unknown) (no [...] (units (unk nown) date) grossly intact. unknown) [employer] [place] [employer] strength equal bilaterally able lift both legs [...] having lumbar fusion he during Result panel 120 (unknown) (no (unknown) (unknown) [...] date) Shiga Toxin 2 unknown) Result panel 121 (unknown) (no (unknown) [...] (unknown) date) unknown) (unknown) (no (unknown) (unknown) [facility] (units (unknown) date) [address] [place] [address] unknown) [place] [address] (unknown) (no (unknown) (unknown) JERKING, (units (unkno [...] unknown) provider in 2-3 days or call [phone] (unknown) (no (unknown) (unknown) *Return to ER if (units (unknown) date) you should have unknown) any new, worsening or concerning symptoms (unknown) (no (unknown) (unknown) *What to do: You (units (unknown) date) were once again unknown) offered opportunity for rehab facility. It (unknown) (no (unknown) (unknown) *You have been (units (unknown) date) diagnosed with unknown) postoperative pain (unknown) (no (unknown) (unknown) [id number] (units (unkn own) date) unknown) (unknown) (no [...] (unknown) (unknown) Accession Number: (units (unknown) date) [id number] ?? unknown) (unknown) (no (unknown) (unknown) Acct:[id number] (units (unknown) date) unknown) (unknown) (no (unknown) [...] BUN/Creatinine (units (unknown) date) Ratio 18.8 unknown) (-) (unknown) (no (unknown) (unknown) Baso [...] (unknown) (unknown) COMPARISON:? (units (u nknown) date) [facility], unknown) CR, XR CHEST 1V, 02/04/2022, 18:16. 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 - (units (unknown) date) Acute Care Clinical Nurse Specialist unknown) Stat (unknown) (no (unknown) (unknown) Consult [...] (unknown) (unknown) : 1945 (units (unknown) date) Acct:[id number] unknown) (unknown) (no (unknown) (unknown) : 1945 (units (unknown) date) unknown) (unknown) (no (unknown) (unknown) Kimmy Gomez, (units (unknown) date) [Primary Care unknown) Provider] - (unknown) (no (unknown) (unknown) Date of Service: (units (unknown) date) 02/08/22 unknown) (unknown) (no (unknown) (unknown) Departure (units (unkn own) date) unknown) (unknown) (no (unknown) (unknown) Dictated by: (units (u nknown) date) mohamud Metcalf M.D. on 02/08/2022 at 8:40 ? ? (unknown) [...] (unknown) Lymph # (Auto) (units (unknown) date) (9308-0016) /uL unknown) (unknown) (no (unknown) (unknown) Lymph # (Auto) (units (unknown) date) 700 L unknown) (4821-1039) /uL (unknown) (no (unknown) (unknown) Lymph % [...] date) unknown) (unknown) (no (unknown) (unknown) MR#: [id number] (units (unknown) date) unknown) (unknown) (no (unknown) [...] date) Ambulatory unknown) (unknown) (no (unknown) (unknown) [place] # (Auto) (units ( unknown) date) (0-900) /uL unknown) (unknown) (no (unknown) (unknown) [place] # (Auto) (units ( unknown) date) 800 (0-900) unknown) /uL (unknown) (no (unknown) (unknown) [place] % (Auto) (units ( unknown) date) (3-14) % unknown) (unknown) (no (unknown) (unknown) [place] % (Auto) (units ( unknown) date) 14.4 [...] Neut # (Auto) (units ( unknown) date) (3206-0631) /uL unknown) (unknown) (no (unknown) (unknown) Neut # (Auto) (units ( unknown) date) 4200 unknown) (7986-5730) /uL (unknown) (no (unknown) (unknown) Neut % (Auto) (units ( unknown) date) (50-75) % unknown) (unknown) (no (unknown) (unknown) Neut % (Auto) (units ( unknown) date) 71.1 (50-75) % unknown) (unknown) (no (unknown) (unknown) No Action (units (unkn own) date) unknown) (unknown) (no (unknown) (unknown) Normal sinus (units (u nknown) date) rhythm rate 97 NV unknown) interval 172 QRS 90 QTC 482 [...] (unknown) (unknown) Patient: (units (unkno wn) date) Rahda Peraza unknown) MR#: M (unknown) (no (unknown) (unknown) Patient: (units (unkno wn) date) Radha Peraza unknown) (unknown) (no (unknown) (unknown) Platelike (units [...] DISCHARGED FROM 02/07 (unknown) (no (unknown) (unknown) Nqookso-CMC-BtR (units (unknown) date) Reductase AdvReac unknown) Mild [...] Not Available] unknown) (unknown) (no (unknown) (unknown) [[id number]-MDJ-VLF (units (unknown) date) REDUCTASE unknown) (unknown) (no [...] (units (unk nown) date) grossly intact. unknown) [employer] [place] [employer] strength equal bilaterally able lift both legs [...] date) through your unknown) provider. Result panel 122 (unknown) (no date) (unknown) (unknown) (no value) (units (un known) unknown) (unknown) (no date) (unknown) (unknown) NO GROWTH (units (unk nown) AFTER 72 unknown) HOURS Result panel 123 (unknown) (no date) (unknown) (unknown) (no value) (units (un known) unknown) (unknown) (no date) (unknown) (unknown) NO GROWTH (units (unk nown) AFTER 24 unknown) HOURS Result panel 124 (unknown) (no date) (unknown) (unknown) (no value) (units (un known) unknown) (unknown) (no date) (unknown) (unknown) NO GROWTH (units (unk nown) AFTER 24 unknown) HOURS Result panel 125 (unknown) (no date) (unknown) (unknown) (no value) (units (un known) unknown) (unknown) (no date) (unknown) (unknown) NO GROWTH (units (unk nown) AFTER 4 DAYS unknown) Result panel 126 (unknown) (no date) (unknown) (unknown) NO GROWTH (units (unk nown) AFTER 48 unknown) HOURS (unknown) (no date) (unknown) (unknown) (no value) (units (un known) unknown) Result panel 127 (unknown) (no date) (unknown) (unknown) NO GROWTH (units (unk nown) AFTER 48 unknown) HOURS (unknown) (no date) (unknown) (unknown) (no value) (units (un known) unknown) Result panel 128 (unknown) (no date) (unknown) (unknown) (no value) (units (un known) unknown) (unknown) (no date) (unknown) (unknown) NO GROWTH (units (unk nown) AFTER 5 DAYS unknown) Result panel 129 (unknown) (no date) (unknown) (unknown) (no value) (units (un known) unknown) (unknown) (no date) (unknown) (unknown) NO GROWTH (units (unk nown) AFTER 5 DAYS unknown) Result panel 130 (unknown) (no date) (unknown) (unknown) (no value) (units (un known) unknown) (unknown) (no date) (unknown) (unknown) NO GROWTH (units (unk nown) AFTER 72 unknown) HOURS Result panel 131 (unknown) (no date) (unknown) (unknown) (no value) (units (un known) unknown) (unknown) (no date) (unknown) (unknown) NO GROWTH (units (unk nown) AFTER 72 unknown) HOURS Result panel 132 (unknown) (no date) (unknown) (unknown) (no value) (units (un known) unknown) (unknown) (no date) (unknown) (unknown) NO GROWTH (units (unk nown) AFTER 4 DAYS unknown) Result panel 133 (unknown) (no date) (unknown) (unknown) (no value) (units (un known) unknown) (unknown) (no date) (unknown) (unknown) NO GROWTH (units (unk nown) AFTER 4 DAYS unknown) Result panel 134 (unknown) (no date) (unknown) (unknown) (no value) (units (un known) unknown) (unknown) (no date) (unknown) (unknown) NO GROWTH (units (unk nown) AFTER 5 DAYS unknown) Result panel 135 (unknown) (no date) (unknown) (unknown) (no value) (units (un known) unknown) (unknown) (no date) (unknown) (unknown) NO GROWTH (units (unk nown) AFTER 5 DAYS unknown) Social History date description facility (no date) Ex-smoker (finding) [facility] Vital Signs date measurement value units +0000 BP_diastolic BP_diastolic 75 mm[H g] +0000 BP_systolic BP_systolic 159 mm[Hg] +0000 heart_rate heart_rate 53 /min +0000 respiration_rate respiration_rate [...] 7.6 F +0000 BMI BMI 28.3 kg/m2 [id number] height_metric height_metric 185.42 cm +0000 height_standard height_standard 73 in +0000 weight_metric weight_metric 44.24 kg [id number] weight_standard weight_standard 97.52 lb +0000 o2_saturation o2_saturation 87 % +0000 BP_diastolic BP_diastolic 68 mm[H g] +0000 BP_systolic BP_systolic 138 mm[Hg] +0000 heart_rate heart_rate 72 /min [id number]+0000 respiration_rate respiration_rate 18 /min +0000 temperature_metric temperature_metric [...]
[2022-02-18 15:42] LABS: ACETAMINOPHEN < 10 ug/mL (10-30); ALBUMIN 3.5 g/dL (3.2-5.5); ALBUMIN/GLOBULIN RATIO 1.2 (1.0-2.2); ALKALINE PHOSPHATASE 80 IU/L (42-121); ALT ALANINE AMINOTRANSFERASE 20 IU/L (10-60); AST ASPARTATE AMINOTRANSFERASE 24 IU/L (10-42); BILIRUBIN,TOTAL 0.6 mg/dL (0.2-1.0); BUN - BLOOD UREA NITROGEN 16 mg/dL (6-20); CALCIUM 9.2 mg/dL (8.5-10.3); CARBON DIOXIDE - CO2 27 mmol/L (21-32); CHLORIDE 101 mmol/L (101-111); CREATININE 0.7 mg/dL (0.6-1.2); ETOH - ETHANOL < 5.0 mg/dL; GFR - MDRD 109 (>89); GLUCOSE 125 mg/dL (70-100); LIPASE 31 U/L (22-51); POTASSIUM 4.1 mmol/L (3.5-5.0); SALICYLATE < 6.0 mg/dL; SODIUM 138 mmol/L (135-145); TOTAL PROTEIN 6.5 g/dL (6.7-8.2)
[2022-02-18] MEDS: NALOXONE HCL NASAL SPRAY KIT NAS STA (16:15)
[2022-02-18 16:23] VITALS: BP 160/104
== END 2022-02-18 16:25 | disposition home or self-care (01) ==
LOC: EDUNIT# → ED 14:51
DX: F11.20 Opioid dependence, uncomplicated (principal); R41.0 Disorientation, unspecified; T40.2X5A Adverse effect of other opioids, initial encounter
CPT/HCPCS: 36415; 80053; 80307; 83690; 84443; 85025; 96374; 99281; 99283; G0480; G2215; 80320; 80329

== ENCOUNTER 2022-04-09 09:01 | Emergency (ER) | payer MEDICARE ==
[2022-04-09 09:13] VITALS: BP 141/67
--- OUTSIDE RECORDS SUMMARY | 2022-04-09 09:30 | EXTERNAL MEDICAL SUMMARY RPT | Continuity of Care Document ---
:1945 Author Organization [facility] Address [address] [place] [address] Phone Allergies and Intolerances date description facility type (no date) Mild [facility] (unknown) (no date) [facility] Reductase Inhibitor [facility] pitut (unknown) (no date) Sulfa (Sulfonamide Antibiotics) [facility] (unknown) (no date) buprenorphine [facility] (unknown) (no date) celecoxib [facility] (unknown) (no date) diazepam [facility] (unknown) (no date) fentanyl [facility] (unknown) (no date) hydromorphone [facility] (unknown) (no date) hyoscyamine [facility] (unknown) (no date) latex [facility] (unknown) (no date) morphine [facility] (unknown) (no date) varenicline [facility] (unknown) Encounters No information. Functional Status No information. Immunizations No information. Medications date description facility +0000 Oxycodone Hydrochloride 5 MG Oral Tabl et [facility] [id number]+0000 Docusate Sodium 100 MG Oral Capsule I [facility] 83099106362253+0000 montelukast 10 MG Oral Tablet [facility] 77165132231327+0000 Furosemide 40 MG Oral [facility] 21195814975517+0000 Albuterol 0.417 MG/ML Inhalant Solutio n [facility] 82373548592173+0000 24 HR metoprolol succinate 100 MG Exte nded [facility] Release Tablet 73574201716968+0000 Acetaminophen 300 MG / Codeine Phospha te 30 [facility] MG Oral Tablet Problems No information. Procedures date description facility +0000 [facility] 52696177271642+0000 [facility] 12823808220773+0000 [facility] 80628961624015+0000 [facility] 45573529252439+0000 [facility] Results/Labs test date author facility value unit interpret ation Result panel 1 (unknown) (no date) (unknown) (unknown) 0 /uL (unkn own) (unknown) (no date) (unknown) (unknown) 0 /uL (unkn own) (unknown) (no date) (unknown) (unknown) 0.0 % (unkn own) (unknown) (no date) (unknown) (unknown) 0.1 % (unkn own) (unknown) (no date) (unknown) (unknown) 01201 /uL (unkn own) (unknown) (no date) (unknown) [...] (unknown) 92.6 fL (unkn own) Result panel 2 (unknown) (no date) (unknown) (unknown) > 60 [...] (unknown) 99 mmol/L (unkn own) Result panel 3 (unknown) (no (unknown) (unknown) (no value) (units [...] date) unknown) (unknown) (no (unknown) (unknown) [address] [place] [address] (units (unknown) date) unknown) (unknown) (no (unknown) [...] own) date) unknown) (unknown) (no (unknown) (unknown) [place], [place] (units ( unknown) date) [address] unknown) (unknown) (no (unknown) (unknown) CT Scan [...] (unknown) date) unknown) (unknown) (no (unknown) (unknown) [facility] (units (unknown) date) unknown) (unknown) (no (unknown) (unknown) [facility] (units (unknown) date) [address] [facility] unknown) [place] [address] (unknown) (no (unknown) (unknown) [place], (units (unkno [...] wn) date) unknown) (unknown) (no (unknown) (unknown) [id number] (units (unkn own) date) unknown) (unknown) (no [...] (unknown) (unknown) Accession Number: (units (unknown) date) [id number] ?? unknown) (unknown) (no (unknown) (unknown) Accession Number: (units (unknown) date) [id number] ?? unknown) (unknown) (no (unknown) (unknown) Acct:[id number] (units (unknown) date) unknown) (unknown) (no (unknown) [...] unknown) Ml Neb (Adult)) 2.5 mg INH [id number] PRN (unknown) (no (unknown) (unknown) Alkaline (units [...] (unknown) (unknown) COMPARISON:? (units (u nknown) date) [facility], unknown) CT, CT CERVICAL SPINE WO [facility], 04/16/2021, 12:21. (unknown) (no (unknown) (unknown) COMPARISON:? (units (u nknown) date) [facility], unknown) CT, CT HEAD/BRAIN [facility], 04/16/2021, 12:21. (unknown) (no (unknown) (unknown) COPD [...] (unknown) (unknown) : 1945 (units (unknown) date) Acct:[id number] unknown) (unknown) (no (unknown) (unknown) : 1945 [...] (unknown) date) unknown) (unknown) (no (unknown) (unknown) [place] (units ( unknown) date) unknown) (unknown) (no [...] PO NOW ONE (unknown) (no (unknown) (unknown) [place] (units (unkno wn) date) unknown) (unknown) (no [...] (unknown) Lymph # (Auto) (units (unknown) date) (7607-8040) /uL unknown) (unknown) (no (unknown) (unknown) Lymph # (Auto) (units (unknown) date) (5260-4734) /uL unknown) (unknown) (no (unknown) (unknown) Lymph # (Auto) (units (unknown) date) 1700 (8498-5488) unknown) /uL (unknown) (no (unknown) (unknown) Lymph [...] date) unknown) (unknown) (no (unknown) (unknown) MR#: [id number] (units (unknown) date) unknown) (unknown) (no (unknown) [...] date) EMS unknown) (unknown) (no (unknown) (unknown) [place]ricks # (Auto) (units ( unknown) date) (0-900) /uL unknown) (unknown) (no (unknown) (unknown) [place]ricks # (Auto) (units ( unknown) date) (0-900) /uL unknown) (unknown) (no (unknown) (unknown) Hendricks # (Auto) 700 (units (unknown) date) (0-900) /uL unknown) (unknown) (no (unknown) (unknown) [place] % (Auto) (units ( unknown) date) (3-14) % unknown) (unknown) (no (unknown) (unknown) [place] % (Auto) (units ( unknown) date) (3-14) % unknown) (unknown) (no (unknown) (unknown) [place]ricks % (Auto) 9.5 (units (unknown) date) (3-14) [...] Neut # (Auto) (units ( unknown) date) (5254-2212) /uL unknown) (unknown) (no (unknown) (unknown) Neut # (Auto) (units ( unknown) date) (2471-2643) /uL unknown) (unknown) (no (unknown) (unknown) Neut # (Auto) (units ( unknown) date) 4800 (9758-8981) unknown) /uL (unknown) (no (unknown) (unknown) Neut [...] Back Pain unknown) (unknown) (no (unknown) (unknown) Ndsrinc-VZC-PaN (units (unknown) date) Reductase AdvReac unknown) Mild [...] (unknown) Ur Specific (units (un known) date) [place] unknown) (1.000-1.035) (unknown) (no (unknown) (unknown) Ur Specific (units (un known) date) [place] unknown) (1.000-1.035) (unknown) (no (unknown) (unknown) Ur Specific (units (un known) date) [place] 1.020 unknown) (1.000-1.035) (unknown) (no (unknown) (unknown) [...] Not Available] unknown) (unknown) (no (unknown) (unknown) [[id number]-JIA (units (unknown) date) REDUCTASE unknown) (unknown) (no [...] (unknown) buprenorphine, (units (unknown) date) hyoscyamine, unknown) Cgnycax-KVS-XyY Reductase Inhibitor, diazepam (unknown) (no (unknown) (unknown) [...] hypertrophy or exudate. Airway patent. Result panel 4 (unknown) (no (unknown) (unknown) (no value) (units (unk nown) date) unknown) (unknown) (no (unknown) (unknown) [address] [place] [address] (units (unknown) date) unknown) (unknown) (no (unknown) (unknown) [place], [place] (units ( unknown) date) [address] unknown) (unknown) (no (unknown) (unknown) CT Scan Report (units (unknown) date) unknown) (unknown) (no (unknown) (unknown) [facility] (units (unknown) date) unknown) (unknown) (no (unknown) (unknown) Signed (units (unkno wn) date) unknown) (unknown) (no (unknown) (unknown) (no value) (units (unk nown) date) unknown) (unknown) (no (unknown) (unknown) 01/21/22 (units (unkno wn) date) unknown) (unknown) (no (unknown) (unknown) [place], CR, XR (units (unknown) date) LUMBAR SPINE WITH unknown) OBLIQUES PLUS FLEXION EXTENSION, 09/08/2021, (unknown) (no (unknown) (unknown) Approved by: (units (u nknown) date) mohamud Montanez M.D. on 01/21/2022 at 15:23 (unknown) (no (unknown) (unknown) Bones: Mild (units (u nknown) date) dextroconvex unknown) scoliotic curvature is seen. There is minimal (unknown) (no (unknown) (unknown) COMPARISON: (units (un known) date) [facility], unknown) CT, CT LUMBAR SPINE WO CON, 12/08/2021, 3:30. (unknown) (no (unknown) (unknown) Dictated by: (units (u nknown) date) Bharath Hsu, unknownRui Horton on 01/21/2022 at 15:16 (unknown) (no (unknown) (unknown) FINDINGS: (units (unkn own) date) unknown) (unknown) (no (unknown) (unknown) Hospital, MR, MR (units (unknown) date) LUMBAR SPINE WO unknown) CON, 09/15/2021, 13:04. [facility] (unknown) (no (unknown) (unknown) IMPRESSION: (units (un [...] (unknown) (unknown) Accession Number: (units (unknown) date) [id number] unknown) (unknown) (no (unknown) (unknown) Age/Sex: 76 / M (units (unknown) date) Date of Service: unknown) (unknown) (no (unknown) (unknown) Artifact from (units ( unknown) date) unknown) (unknown) (no (unknown) (unknown) : 1945 (units (unknown) date) Acct:[id number] unknown) (unknown) (no (unknown) (unknown) [place] (units (unkno wn) date) unknown) (unknown) (no (unknown) (unknown) Loc: CT (units (unkno wn) date) unknown) (unknown) (no (unknown) (unknown) [id number] (units (unk nown) date) unknown) (unknown) (no [...] (units (unkno wn) date) unknown) Result panel 5 (unknown) (no date) (unknown) (unknown) Negative (units (unkn own) unknown) Result panel 6 (unknown) (no (unknown) (unknown) (no value) (units (unk nown) date) unknown) (unknown) (no (unknown) (unknown) Date of Service: (units (unknown) date) 02/03/22 unknown) (unknown) (no (unknown) (unknown) 02/03/22 0932 (units ( unknown) date) unknown) (unknown) (no (unknown) (unknown) [facility] (units (unknown) date) [address] unknown) [place] [address] (unknown) (no (unknown) (unknown) Pre-operative (units ( unknown) date) Note unknown) (unknown) (no (unknown) (unknown) (no value) (units (unk nown) date) unknown) (unknown) (no (unknown) (unknown) [id number] (units (unkn own) date) unknown) (unknown) (no [...] (unknown) (unknown) : 1945 (units (unknown) date) Acct:[id number] unknown) (unknown) (no (unknown) (unknown) Deterioration of [...] less-positive unknown) ultimate med/surg outcome Result panel 7 (unknown) (no (unknown) (unknown) (no value) (units (unk nown) date) unknown) (unknown) (no (unknown) (unknown) [address] [place] [address] (units (unknown) date) unknown) (unknown) (no (unknown) (unknown) [place] (units ( unknown) date) [address] unknown) (unknown) (no (unknown) (unknown) [facility] (units (unknown) date) unknown) (unknown) (no (unknown) (unknown) Signed (units (unkno wn) date) unknown) (unknown) (no (unknown) (unknown) XRay Report (units (un known) date) unknown) (unknown) (no (unknown) (unknown) (no value) (units (unk nown) date) unknown) (unknown) (no (unknown) (unknown) 02/03/22 (units (unkno wn) date) unknown) (unknown) (no (unknown) (unknown) Approved by: (units (u nknown) date) Zeina Saavedra unknownRui Horton on 02/03/2022 at 16:09 (unknown) (no (unknown) (unknown) Bones: 5 (units (unkn own) date) weg-fjm-zylvppv unknown) vertebrae are present. There is normal bony (unknown) (no (unknown) (unknown) COMPARISON: (units (un known) date) [facility], unknown) CT, CT LUMBAR SPINE WO CON, [...] Accession (units (unkn own) date) Number: unknown) [id number] (unknown) (no (unknown) (unknown) Age/Sex: 76 / M (units (unknown) date) Date of unknown) Service: (unknown) (no (unknown) (unknown) : 1945 (units (unknown) date) Acct:[id number] unknown) (unknown) (no (unknown) (unknown) [place] (units (unkno wn) date) unknown) (unknown) (no (unknown) (unknown) Loc: ICU (units (unkno wn) date) 226-1 unknown) (unknown) (no (unknown) (unknown) [id number] (units (unk nown) date) unknown) (unknown) (no [...] (units (un known) date) unknown) Result panel 8 (unknown) (no date) (unknown) (unknown) (no value) (units (un known) unknown) (unknown) (no date) (unknown) (unknown) Date of (units (unkn own) Service: unknown) 02/03/22 (unknown) (no date) (unknown) (unknown) Anesthesia (units (un known) Note unknown) (unknown) (no date) (unknown) (unknown) [place] (units (unkn own) [facility] [address] unknown) [address] [place] [address] (unknown) (no date) (unknown) (unknown) (no value) (units (un known) unknown) (unknown) (no date) (unknown) (unknown) [id number] (units (unk nown) unknown) (unknown) (no date) (unknown) (unknown) Age/Sex: 76 / (units (unknown) M unknown) (unknown) (no date) (unknown) (unknown) : (units (unkn own) 1945 unknown) Acct:[id number] (unknown) (no date) (unknown) (unknown) Patient: (units (unkn own) JackelineRadha unknown) D MR#: M (unknown) (no date) (unknown) (unknown) Provider: (units (unk nown) Carlos Montemayor MD unknown) (unknown) (no date) (unknown) (unknown) Signed By: (units (un known) unknown) Result panel 9 (unknown) (no (unknown) (unknown) (no value) (units (unk nown) date) unknown) (unknown) (no (unknown) (unknown) Date of Service: (units (unknown) date) 02/03/22 unknown) (unknown) (no (unknown) (unknown) 02/03/22 1538 (units ( unknown) date) unknown) (unknown) (no (unknown) (unknown) [facility] (units (unknown) date) [address] unknown) [place] [address] (unknown) (no (unknown) (unknown) Operative Note (units [...] visible motion indicating (unknown) (no (unknown) (unknown) [id number] (units (unkn own) date) unknown) (unknown) (no [...] unknown) fusion (unknown) (no (unknown) (unknown) 7. [place] of bone (units (unknown) date) marrow from [...] (unknown) date) unknown) (unknown) (no (unknown) (unknown) Leadership Coach: Elizabet (units (unknown) date) Beh unknown) (unknown) [...] (unknown) (unknown) : 1945 (units (unknown) date) Acct:[id number] unknown) (unknown) (no (unknown) (unknown) Date of [...] unknown) merged the C-arm imaging using the Databricks robotic (unknown) (no (unknown) (unknown) MARs retractor [...] (unknown) onto the power (units (unknown) date) minibus driver and inserted unknown) into the pedicles [...] its maximum height using the Result panel 10 (unknown) (no date) (unknown) (unknown) 0.2 E.U./dL [...] YELLOW (units (unkn own) unknown) Result panel 11 (unknown) (no date) (unknown) (unknown) 0.2 E.U./dL [...] YELLOW (units (unkn own) unknown) Result panel 12 (unknown) (no date) (unknown) (unknown) Negative for (units ( unknown) MRSA unknown) Result panel 13 (unknown) (no date) (unknown) (unknown) 12.6 g/dL (unkn own) (unknown) (no date) (unknown) (unknown) 35.4 % (unkn own) Result panel 14 (unknown) (no (unknown) (unknown) (no value) (units [...] unknown) date) unknown) (unknown) (no (unknown) (unknown) [facility] (units (unknown) date) [address] [facility] [address] unknown) [place] [address] (unknown) (no (unknown) (unknown) Laboratory (units (unk [...] currently well controlled (unknown) (no (unknown) (unknown) [id number] (units (unkn own) date) unknown) (unknown) (no [...] (unknown) (unknown) : 1945 (units (unknown) date) Acct:[id number] unknown) (unknown) (no (unknown) (unknown) Date Patient [...] (no (unknown) (unknown) Patient is (units (unk n) date) complaining of unknown) cncb-zf-nntblxti low back pain this morning. He has [...] Provider: (units (unkn own) date) Yas Maravilla unknownRui PTramA-Francisco (unknown) (no (unknown) (unknown) Pulse Oximetry 96 [...] (unknown) Ur Specific (units (un known) date) [place] 1.025 unknown) (unknown) (no (unknown) (unknown) Ur [...] date) MD unknown) (unknown) (no (unknown) (unknown) see how [...] patient seems to be responding Result panel 15 (unknown) (no date) (unknown) (unknown) (no value) (units (un known) unknown) (unknown) (no date) (unknown) (unknown) [address] (units (unk nown) [address] unknown) (unknown) (no date) (unknown) (unknown) [place] (units (unknown) [address] unknown) (unknown) (no date) (unknown) (unknown) [place] (units (unkn own) [facility] unknown) (unknown) (no [...] date) (unknown) (unknown) COMPARISON: (units (u nknown) [place] unknown) [facility], CR, XR CHEST 1V, 11/28/2021, 15:25. (unknown) (no date) (unknown) (unknown) Dictated by: (units ( unknown) [place] unknown) Clifford Jaimes on 02/04/2022 at 19:06 [...] (unknown) Accession (units (unk nown) Number: unknown) [id number] (unknown) (no date) (unknown) (unknown) Age/Sex: 76 / (units (unknown) M Date of unknown) Service: (unknown) (no date) (unknown) (unknown) : (units (unkn own) 1945 unknown) Acct:[id number] (unknown) (no date) (unknown) (unknown) Loc: [facility] (units (unkn own) 224-1 unknown) (unknown) (no date) (unknown) (unknown) [id number] (units (un known) unknown) (unknown) (no date) [...] (unknown) cardiomegaly. (units (unknown) unknown) Result panel 16 (unknown) (no (unknown) (unknown) (no value) (units (unk nown) date) unknown) (unknown) (no (unknown) (unknown) Date of Service: (units (unknown) date) 02/03/22 unknown) (unknown) (no (unknown) (unknown) 02/04/22 1753 (units ( unknown) date) unknown) (unknown) (no (unknown) (unknown) Event Note (units (unk nown) date) unknown) (unknown) (no (unknown) (unknown) [facility] (units (unknown) date) [address] unknown) [place] [address] (unknown) (no (unknown) (unknown) Will order CXR. (units (unknown) date) unknown) (unknown) (no (unknown) (unknown) (no value) (units (unk nown) date) unknown) (unknown) (no (unknown) (unknown) (amenable to (units (u nknown) date) APAP), and has unknown) been noncompliant w/ spirometer use. (unknown) (no (unknown) (unknown) [id number] (units (unkn own) date) unknown) (unknown) (no (unknown) (unknown) Age/Sex: 76 / M (units (unknown) date) unknown) (unknown) (no (unknown) (unknown) : 1945 (units (unknown) date) Acct:[id number] unknown) (unknown) (no (unknown) (unknown) Date Patient [...] wn) date) By:<Electronically unknown) signed by Elizabet P.A-C Beh> (unknown) (no (unknown) (unknown) Stopped up to [...] sitting in chair, somnolent and Result panel 17 (unknown) (no (unknown) (unknown) (no value) (units (unk nown) date) unknown) (unknown) (no (unknown) (unknown) Date of Service: (units (unknown) date) 02/03/22 unknown) (unknown) (no (unknown) (unknown) (no value) (units (unk nown) date) unknown) (unknown) (no (unknown) (unknown) - (units (unkno wn) date) unknown) (unknown) (no (unknown) (unknown) 02/04/22 08:53 (units (unknown) date) unknown) (unknown) (no (unknown) (unknown) [facility] (units (unknown) date) [address] unknown) [place] [address] (unknown) (no (unknown) (unknown) Laboratory (units (unk [...] (unknown) date) unknown) (unknown) (no (unknown) (unknown) [id number] (units (unkn own) date) unknown) (unknown) (no [...] (unknown) (unknown) : 1945 (units (unknown) date) Acct:[id number] unknown) (unknown) (no (unknown) (unknown) Date Patient [...] type: does not unknown) use Result panel 18 (unknown) (no (unknown) (unknown) (no value) (units (unk nown) date) unknown) (unknown) (no (unknown) (unknown) Date of Service: (units (unknown) date) 02/03/22 unknown) (unknown) (no (unknown) (unknown) (no value) (units (unk nown) date) unknown) (unknown) (no (unknown) (unknown) - (units (unkno wn) date) unknown) (unknown) (no (unknown) (unknown) 02/04/22 08:53 (units (unknown) date) unknown) (unknown) (no (unknown) (unknown) [facility] (units (unknown) date) [address] unknown) [place] [address] (unknown) (no (unknown) (unknown) Laboratory (units (unk [...] (unknown) date) unknown) (unknown) (no (unknown) (unknown) [id number] (units (unkn own) date) unknown) (unknown) (no [...] (unknown) (unknown) : 1945 (units (unknown) date) Acct:[id number] unknown) (unknown) (no (unknown) (unknown) Date Patient [...] been frequently getting up to Result panel 19 (unknown) (no (unknown) (unknown) (no value) (units [...] unknown) date) unknown) (unknown) (no (unknown) (unknown) [facility] (units (unknown) date) [address] unknown) [place] [address] (unknown) (no (unknown) (unknown) Laboratory (units (unk [...] (unknown) date) unknown) (unknown) (no (unknown) (unknown) [id number] (units (unkn own) date) unknown) (unknown) (no [...] (unknown) (unknown) : 1945 (units (unknown) date) Acct:[id number] unknown) (unknown) (no (unknown) (unknown) Date Patient [...] (units (unknown) date) patient will need unknown) shelter for physical rehabilitation. (unknown) (no (unknown) (unknown) [...] been frequently getting up to Result panel 20 (unknown) (no date) (unknown) (unknown) 1.4 mmol/L (unkn own) Result panel 21 (unknown) (no date) (unknown) (unknown) > 60 [...] (unknown) 90 IU/L (unkn own) Result panel 22 (unknown) (no date) (unknown) (unknown) 21 (units [...] (unknown) 87 % (unkn own) Result panel 23 (unknown) (no date) (unknown) (unknown) 0.6 % [...] (unknown) 92.8 fL (unkn own) Result panel 24 (unknown) (no (unknown) (unknown) (no value) (units (unk nown) date) unknown) (unknown) (no (unknown) (unknown) [address] [place] [address] (units (unknown) date) unknown) (unknown) (no (unknown) (unknown) [place], [place] (units ( unknown) date) [address] unknown) (unknown) (no (unknown) (unknown) CT Scan Report (units (unknown) date) unknown) (unknown) (no (unknown) (unknown) [facility] (units (unknown) date) unknown) (unknown) [...] (unknown) (unknown) COMPARISON: (units (un known) date) [facility], unknown) CT, CT HEAD/BRAIN WO CON, 12/07/2021, [...] (unknown) (unknown) Accession Number: (units (unknown) date) [id number] unknown) (unknown) (no (unknown) (unknown) Age/Sex: 76 / M (units (unknown) date) Date of Service: unknown) (unknown) (no (unknown) (unknown) : 1945 (units (unknown) date) Acct:[id number] unknown) (unknown) (no (unknown) (unknown) [place] (units (unkno wn) date) unknown) (unknown) (no (unknown) (unknown) Loc: AC 224-1 (units (unknown) date) unknown) (unknown) (no (unknown) (unknown) [id number] (units (unk nown) date) unknown) (unknown) (no [...] (units (unkno wn) date) unknown) Result panel 25 (unknown) (no [...] (unknown) date) unknown) (unknown) (no (unknown) (unknown) [facility] (units (unknown) date) [address] unknown) [place] [address] (unknown) (no (unknown) (unknown) [place], (units (unkno [...] (unknown) date) unknown) (unknown) (no (unknown) (unknown) [id number] (units (unkn own) date) unknown) (unknown) (no [...] (unknown) (unknown) : 1945 (units (unknown) date) Acct:[id number] unknown) (unknown) (no (unknown) (unknown) Date Patient [...] wn) date) unknown) (unknown) (no (unknown) (unknown) Hendricks # (Auto) (units ( unknown) date) unknown) (unknown) (no (unknown) (unknown) [place]ricks # (Auto) (units ( unknown) date) [address] unknown) (unknown) (no (unknown) (unknown) [place] % (Auto) (units ( unknown) date) unknown) (unknown) (no (unknown) (unknown) [place]ricks % (Auto) (units ( unknown) date) 15.8 [...] nknown) date) unknown) (unknown) (no (unknown) (unknown) Crwmvty-PHR-AnP (units (unknown) date) Reductase AdvReac unknown) Mild [...] Not Available] unknown) (unknown) (no (unknown) (unknown) [XFERVSO-AQM-ZDZ (units (unknown) date) REDUCTASE unknown) (unknown) (no [...] Severe Paranoia Verified 02/03/22 08:04 Result panel 26 (unknown) (no (unknown) (unknown) [...] (unknown) date) unknown) (unknown) (no (unknown) (unknown) [facility] (units (unknown) date) [address] unknown) [place] [address] (unknown) (no (unknown) (unknown) [place], (units (unkno [...] polypharmacy, limit opiates (unknown) (no (unknown) (unknown) [id number] (units (unkn own) date) unknown) (unknown) (no [...] (unknown) (unknown) : 1945 (units (unknown) date) Acct:[id number] unknown) (unknown) (no (unknown) (unknown) Date Patient [...] wn) date) unknown) (unknown) (no (unknown) (unknown) Hendricks # (Auto) (units ( unknown) date) unknown) (unknown) (no (unknown) (unknown) [place] # (Auto) (units ( unknown) date) [address] unknown) (unknown) (no (unknown) (unknown) [place] % (Auto) (units ( unknown) date) unknown) (unknown) (no (unknown) (unknown) [place]ricks % (Auto) (units ( unknown) date) 15.8 [...] nknown) date) unknown) (unknown) (no (unknown) (unknown) Hxtntsg-ZPJ-FaF (units (unknown) date) Reductase AdvReac unknown) Mild [...] Not Available] unknown) (unknown) (no (unknown) (unknown) [KRZDCYW-RRH-RKX (units (unknown) date) REDUCTASE unknown) (unknown) (no [...] Severe Paranoia Verified 02/03/22 08:04 Result panel 27 (unknown) (no (unknown) (unknown) (no value) (units (unk nown) date) unknown) (unknown) (no (unknown) (unknown) (no value) (units (unk nown) date) unknown) (unknown) (no (unknown) (unknown) [address] [place] [address] (units (unknown) date) unknown) (unknown) (no (unknown) (unknown) [place], [place] (units ( unknown) date) [address] unknown) (unknown) (no (unknown) (unknown) CT Scan Report (units (unknown) date) unknown) (unknown) (no (unknown) (unknown) [facility] (units (unknown) date) unknown) (unknown) [...] (u nknown) date) dinorah Monsivais) Clifford on 02/05/2022 at 22:28 (unknown) (no (unknown) (unknown) Biliary ducts: (units (unknown) date) No biliary ductal unknown) dilatation. (unknown) (no (unknown) (unknown) Bladder: (units (unkno wn) date) Unremarkable. unknown) (unknown) (no (unknown) (unknown) Bones: There are (units (unknown) date) postsurgical unknown) changes consistent with interval revision in the (unknown) (no (unknown) (unknown) COMPARISON: (units (un known) date) [facility], unknown) CT, CT LUMBAR SPINE WO CON, [...] (unknown) (unknown) Accession Number: (units (unknown) date) [id number] unknown) (unknown) (no (unknown) (unknown) Age/Sex: 76 / M (units (unknown) date) Date of Service: unknown) (unknown) (no (unknown) (unknown) : 1945 (units (unknown) date) Acct:[id number] unknown) (unknown) (no (unknown) (unknown) [place] (units (unkno wn) date) unknown) (unknown) (no (unknown) (unknown) Loc: AC 224-1 (units (unknown) date) unknown) (unknown) (no (unknown) (unknown) [id number] (units (unk nown) date) unknown) (unknown) (no [...] (units (unkno wn) date) unknown) Result panel 28 (unknown) (no date) (unknown) (unknown) 0.6 % [...] (unknown) 92.4 fL (unkn own) Result panel 29 (unknown) (no date) (unknown) (unknown) > 60 [...] (unknown) 98 IU/L (unkn own) Result panel 30 (unknown) (no (unknown) (unknown) (no value) (units (unk nown) date) unknown) (unknown) (no (unknown) (unknown) Date of Service: (units (unknown) date) 02/03/22 unknown) (unknown) (no (unknown) (unknown) (no value) (units (unk nown) date) unknown) (unknown) (no (unknown) (unknown) - (units (unkno wn) date) unknown) (unknown) (no (unknown) (unknown) 02/06/22 07:06 (units (unknown) date) unknown) (unknown) (no (unknown) (unknown) [facility] (units (unknown) date) [address] unknown) [place] [address] (unknown) (no (unknown) (unknown) Laboratory (units (unk [...] (unknown) date) unknown) (unknown) (no (unknown) (unknown) [id number] (units (unkn own) date) unknown) (unknown) (no (unknown) (unknown) 04:00 02/06/22 (units (unknown) date) unknown) (unknown) (no (unknown) (unknown) 08:00 (units (o wn) date) unknown) (unknown) (no (unknown) (unknown) ABG Base Excess (units (unknown) date) unknown) (unknown) (no (unknown) (unknown) ABG Base Excess (units (unknown) date) unknown) (unknown) (no (unknown) (unknown) ABG Base Excess (units (unknown) date) 7.0 H unknown) (unknown) (no (unknown) (unknown) ABG HCO3 (units (unkno wn) date) unknown) (unknown) (no (unknown) (unknown) ABG HCO3 (units (o wn) date) unknown) (unknown) (no [...] (unknown) (no (unknown) (unknown) ABG pCO2 (units (o wn) date) unknown) (unknown) (no (unknown) (unknown) ABG pCO2 (units (o wn) date) unknown) (unknown) (no [...] (unknown) (unknown) : 1945 (units (unknown) date) Acct:[id number] unknown) (unknown) (no (unknown) (unknown) Date Patient [...] Evan Rangel MD) (unknown) (no (unknown) (unknown) Hendricks # (Auto) (units ( unknown) date) unknown) (unknown) (no (unknown) (unknown) Hendricks # (Auto) (units ( unknown) date) 1100 H unknown) (unknown) (no (unknown) (unknown) Hendricks # (Auto) (units ( unknown) date) 1300 H unknown) (unknown) (no (unknown) (unknown) Hendricks % (Auto) (units ( unknown) date) unknown) (unknown) (no (unknown) (unknown) Hendricks % (Auto) (units ( unknown) date) 14.2 H unknown) (unknown) (no (unknown) (unknown) Hendricks % (Auto) (units ( unknown) date) 15.8 [...] unremarkable. unknown) Cooperative with exam this morning; 5/ (unknown) (no (unknown) (unknown) household (units (unkn [...] (u nknown) date) yesterday. unknown) Result panel 31 (unknown) (no (unknown) (unknown) [...] (unknown) date) unknown) (unknown) (no (unknown) (unknown) [facility] (units (unknown) date) [address] unknown) [place] [id number] (unknown) (no (unknown) (unknown) Laboratory (units (unk [...] (unknown) date) unknown) (unknown) (no (unknown) (unknown) [id number] (units (unkn own) date) unknown) (unknown) (no [...] (unknown) (unknown) : 1945 (units (unknown) date) Acct:[id number] unknown) (unknown) (no (unknown) (unknown) Date Patient [...] Evan Rangel MD) (unknown) (no (unknown) (unknown) Hendricks # (Auto) (units ( unknown) date) unknown) (unknown) (no (unknown) (unknown) Hendricks # (Auto) (units ( unknown) date) 1100 H unknown) (unknown) (no (unknown) (unknown) Hendricks # (Auto) (units ( unknown) date) 1300 H unknown) (unknown) (no (unknown) (unknown) Hendricks % (Auto) (units ( unknown) date) unknown) (unknown) (no (unknown) (unknown) Hendricks % (Auto) (units ( unknown) date) 14.2 H unknown) (unknown) (no (unknown) (unknown) Hendricks % (Auto) (units ( unknown) date) 15.8 [...] Patient: (units (unkno wn) date) JackelineRadha barnes unknown) MR#: M (unknown) (no (unknown) (unknown) [...] this morning; 12/10 (unknown) (no (unknown) (unknown) cleared. (units (unkno [...] (u nknown) date) yesterday. unknown) Result panel 32 (unknown) (no (unknown) (unknown) [...] unknown) date) unknown) (unknown) (no (unknown) (unknown) [facility] (units (unknown) date) [address] unknown) [place] [address] (unknown) (no (unknown) (unknown) Laboratory (units (unk [...] (unknown) date) unknown) (unknown) (no (unknown) (unknown) [id number] (units (unkn own) date) unknown) (unknown) (no [...] (unknown) (unknown) : 1945 (units (unknown) date) Acct:[id number] unknown) (unknown) (no (unknown) (unknown) Date Patient [...] Evan Rangel MD) (unknown) (no (unknown) (unknown) Hendricks # (Auto) (units ( unknown) date) unknown) (unknown) (no (unknown) (unknown) Hendricks # (Auto) (units ( unknown) date) 1100 H unknown) (unknown) (no (unknown) (unknown) Hendricks # (Auto) (units ( unknown) date) 1300 H unknown) (unknown) (no (unknown) (unknown) Hendricks % (Auto) (units ( unknown) date) unknown) (unknown) (no (unknown) (unknown) Hendricks % (Auto) (units ( unknown) date) 14.2 H unknown) (unknown) (no (unknown) (unknown) Hendricks % (Auto) (units ( unknown) date) 15.8 [...] wn) date) By:<Electronically unknown) signed by Elizabet P.A-C Beh> (unknown) (no (unknown) (unknown) Sitting in [...] unknown) appear to be normal. Result panel 33 (unknown) (no date) (unknown) (unknown) 0.2 E.U./dL [...] YELLOW (units (unkn own) unknown) Result panel 34 (unknown) (no date) (unknown) (unknown) 0-1/HPF (units [...] YELLOW (units (unkn own) unknown) Result panel 35 (unknown) (no (unknown) [...] unknown) date) unknown) (unknown) (no (unknown) (unknown) [facility] (units (unknown) date) [address] unknown) [place] [address] (unknown) (no (unknown) (unknown) Laboratory (units (unk [...] and recent surgery (unknown) (no (unknown) (unknown) [id number] (units (unkn own) date) unknown) (unknown) (no [...] (unknown) (no (unknown) (unknown) 2. COPD (units (o wn) ) unknown) (unknown) (no (unknown) (unknown) ABD: soft, (units (unk nown) date) nontender, unknown) nondistended, no organomegaly (unknown) (no (unknown) (unknown) ABG Base Excess (units (unknown) date) unknown) (unknown) (no (unknown) (unknown) ABG Base Excess (units (unknown) date) 7.0 H unknown) (unknown) (no (unknown) (unknown) ABG HCO3 (units (o wn) ) unknown) (unknown) (no (unknown) (unknown) ABG HCO3 [...] (unknown) (no (unknown) (unknown) ABG pCO2 (units (o wn) ) unknown) (unknown) (no (unknown) (unknown) ABG pCO2 52.6 H (units (unknown) date) unknown) (unknown) (no (unknown) (unknown) ABG pH (units (o wn) date) unknown) (unknown) (no (unknown) (unknown) ABG pH 7.39 (units ( unknown) date) unknown) (unknown) (no (unknown) (unknown) ABG pO2 (units (unkno wn) ) unknown) (unknown) (no (unknown) (unknown) ABG pO2 [...] (no (unknown) (unknown) CODE: Full (units (unk n) date) unknown) (unknown) (no (unknown) (unknown) COPD [...] (unknown) (unknown) : 1945 (units (unknown) date) Acct:[id number] unknown) (unknown) (no (unknown) (unknown) Date Patient [...] Evan Rangel MD) (unknown) (no (unknown) (unknown) Hendricks # (Auto) (units ( unknown) date) unknown) (unknown) (no (unknown) (unknown) Hendricks # (Auto) (units ( unknown) date) 1300 H 1100 H unknown) (unknown) (no (unknown) (unknown) Hendricks % (Auto) (units ( unknown) date) unknown) (unknown) (no (unknown) (unknown) Hendricks % (Auto) (units ( unknown) date) 15.8 [...] (unknown) Ur Specific (units (un known) date) [place] unknown) (unknown) (no (unknown) (unknown) Ur Specific (units (un known) date) [place] 1.010 unknown) (unknown) (no (unknown) (unknown) Urine [...] exclusive of unknown) procedural time. Result panel 36 (unknown) (no date) (unknown) (unknown) (no value) (units (un known) unknown) (unknown) (no date) (unknown) (unknown) NO GROWTH (units (unk nown) AFTER 24 unknown) HOURS Result panel 37 (unknown) (no (unknown) (unknown) [...] notified: Yes unknown) (unknown) (no (unknown) (unknown) [facility] (units (unknown) date) [address] unknown) [place] [address] (unknown) (no (unknown) (unknown) Label Comments: (units [...] (unknown) date) unknown) (unknown) (no (unknown) (unknown) [id number] (units (unkn own) date) unknown) (unknown) (no [...] unknown) fusion (unknown) (no (unknown) (unknown) 7. [place] of bone (units (unknown) date) marrow from iliac unknown) crest through a separate incision (unknown) (no (unknown) (unknown) 02/16/2022 @ 1:00 (units (unknown) date) pm at Commercial unknown) [facility] office in [place].) (unknown) (no (unknown) (unknown) 8. Utilization of [...] known) date) unknown) (unknown) (no (unknown) (unknown) Leadership Coach: Elizabet (units (unknown) date) Beh unknown) (unknown) [...] (unknown) (unknown) : 1945 (units (unknown) date) Acct:[id number] unknown) (unknown) (no (unknown) (unknown) Kimmy Gomez [...] Stroke unknown) (unknown) (no (unknown) (unknown) Mr Peraza's (units (u nknown) date) hospital course was [...] Elizabet Cadet Beh> (unknown) (no (unknown) (unknown) Skin/Wound/Dressin (units (unknown) [...] type: does not use unknown) Result panel 38 (unknown) (no (unknown) (unknown) (no value) (units (unk nown) date) unknown) (unknown) (no (unknown) (unknown) Date of Service: (units (unknown) date) 02/03/22 unknown) (unknown) (no (unknown) (unknown) (no value) (units (unk nown) date) unknown) (unknown) (no (unknown) (unknown) - (units (unkno wn) date) unknown) (unknown) (no (unknown) (unknown) 02/06/22 07:06 (units (unknown) date) unknown) (unknown) (no (unknown) (unknown) [facility] (units (unknown) date) [address] unknown) [place] [address] (unknown) (no (unknown) (unknown) Progress Note (units ( unknown) date) unknown) (unknown) (no (unknown) (unknown) (no value) (units (unk nown) date) unknown) (unknown) (no (unknown) (unknown) 02/07/22 (units (unkno wn) date) unknown) (unknown) (no (unknown) (unknown) (past 8 hours): (units (unknown) date) unknown) (unknown) (no (unknown) (unknown) [id number] (units (unkn own) date) unknown) (unknown) (no [...] (unknown) (unknown) : 1945 (units (unknown) date) Acct:[id number] unknown) (unknown) (no (unknown) (unknown) Date Patient [...] unknown) chair, lethargic. States pain yesterday was 10 (unknown) (no (unknown) (unknown) Patient: (units (unkno [...] exclusive of unknown) procedural time. Result panel 39 (unknown) (no (unknown) (unknown) (no value) (units (unk nown) date) unknown) (unknown) (no (unknown) (unknown) Date of Service: (units (unknown) date) 02/03/22 unknown) (unknown) (no (unknown) (unknown) (no value) (units (unk nown) date) unknown) (unknown) (no (unknown) (unknown) - (units (unkno wn) date) unknown) (unknown) (no (unknown) (unknown) 02/06/22 07:06 (units (unknown) date) unknown) (unknown) (no (unknown) (unknown) [facility] (units (unknown) date) [address] unknown) [place] [address] (unknown) (no (unknown) (unknown) Progress Note (units ( unknown) date) unknown) (unknown) (no (unknown) (unknown) (no value) (units (unk nown) date) unknown) (unknown) (no (unknown) (unknown) 02/07/22 (units (unkno wn) date) unknown) (unknown) (no (unknown) (unknown) (past 8 hours): (units (unknown) date) unknown) (unknown) (no (unknown) (unknown) [id number] (units (unkn own) date) unknown) (unknown) (no [...] (unknown) (unknown) : 1945 (units (unknown) date) Acct:[id number] unknown) (unknown) (no (unknown) (unknown) Date Patient [...] (units ( unknown) date) unknown) Result panel 40 (unknown) (no (unknown) (unknown) (no value) (units (unk nown) date) unknown) (unknown) (no (unknown) (unknown) Date of Service: (units (unknown) date) 02/03/22 unknown) (unknown) (no (unknown) (unknown) (no value) (units (unk nown) date) unknown) (unknown) (no (unknown) (unknown) - (units (unkno wn) date) unknown) (unknown) (no (unknown) (unknown) 02/06/22 07:06 (units (unknown) date) unknown) (unknown) (no (unknown) (unknown) [facility] (units (unknown) date) [address]) [place] [id number] (unknown) (no (unknown) (unknown) Progress Note (units [...] 400 mg at (unknown) (no (unknown) (unknown) [id number] (units (unkn own) date) unknown) (unknown) (no [...] (unknown) (unknown) : 1945 (units (unknown) date) Acct:[id number] unknown) (unknown) (no (unknown) (unknown) Date Patient [...] (unknown) Medical History (units (unknown) date) (Reviewed 07/03/22 unknown) @ 11:16 by [facility]) (unknown) [...] date) systolic unknown) function.: No Result panel 41 (unknown) (no (unknown) (unknown) (no value) (units (unk nown) date) unknown) (unknown) (no (unknown) (unknown) Date of Service: (units (unknown) date) 02/03/22 unknown) (unknown) (no (unknown) (unknown) (no value) (units (unk nown) date) unknown) (unknown) (no (unknown) (unknown) - (units (unkno wn) date) unknown) (unknown) (no (unknown) (unknown) 02/06/22 07:06 (units (unknown) date) unknown) (unknown) (no (unknown) (unknown) [facility] (units (unknown) date) [address]) [place] [address] (unknown) (no (unknown) (unknown) Progress Note (units [...] and recent surgery (unknown) (no (unknown) (unknown) [id number] (units (unkn own) date) unknown) (unknown) (no [...] (unknown) (unknown) : 1945 (units (unknown) date) Acct:[id number] unknown) (unknown) (no (unknown) (unknown) Date Patient [...] date) (Reviewed 02/07/22 unknown) @ 11:16 by [facility] Ceballos) (unknown) (no (unknown) (unknown) Radha Peraza [...] date) systolic unknown) function.: No Result panel 42 (unknown) (no (unknown) (unknown) [...] unknown) date) unknown) (unknown) (no (unknown) (unknown) [facility] (units (unknown) date) [address] unknown) [place] [id number] (unknown) (no (unknown) (unknown) Progress Note (units [...] and recent surgery (unknown) (no (unknown) (unknown) [id number] (units (unkn own) date) unknown) (unknown) (no [...] (unknown) (unknown) : 1945 (units (unknown) date) Acct:[id number] unknown) (unknown) (no (unknown) (unknown) Date Patient [...] date) [place] unknown) (unknown) (no (unknown) (unknown) Psyche: normal [...] date) systolic unknown) function.: No Result panel 43 (unknown) (no (unknown) (unknown) [...] unknown) date) unknown) (unknown) (no (unknown) (unknown) [facility] (units (unknown) date) [address] unknown) [place] [address] (unknown) (no (unknown) (unknown) Progress Note (units [...] (unknown) (no (unknown) (unknown) * Question (units (n) date) polypharmacy, unknown) patient was stated to [...] and recent surgery (unknown) (no (unknown) (unknown) [id number] (units (unkn own) date) unknown) (unknown) (no [...] (unknown) (unknown) : 1945 (units (unknown) date) Acct:[id number] unknown) (unknown) (no (unknown) (unknown) Date Patient [...] date) systolic unknown) function.: No Result panel 44 (unknown) (no (unknown) (unknown) [...] date) Shiga Toxin 2 unknown) Result panel 45 (unknown) (no date) (unknown) (unknown) NO GROWTH (units (unk nown) AFTER 48 unknown) HOURS (unknown) (no date) (unknown) (unknown) (no value) (units (un known) unknown) Result panel 46 (unknown) (no (unknown) (unknown) [...] (unknown) date) unknown) (unknown) (no (unknown) (unknown) [facility] (units (unknown) date) [address] [place] [address] unknown) [place] [address] (unknown) (no (unknown) (unknown) JERKING, (units (unkno [...] date) grams unknown) (unknown) (no (unknown) (unknown) [id number] (units (unkn own) date) unknown) (unknown) (no [...] (unknown) (unknown) : 1945 (units (unknown) date) Acct:[id number] unknown) (unknown) (no (unknown) (unknown) Kimmy Gomez, [...] DISCHARGED FROM 02/07 (unknown) (no (unknown) (unknown) Ntgpqtb-QMB-FjO (units (unknown) date) Reductase AdvReac unknown) Mild [...] nknown) date) unknown) (unknown) (no (unknown) (unknown) [AXMQDJM-NRR-LHG (units (unknown) date) REDUCTASE unknown) (unknown) (no [...] Severe Paranoia Verified 02/08/22 08:38 Result panel 47 (unknown) (no (unknown) (unknown) (no value) (units (unk nown) date) unknown) (unknown) (no (unknown) (unknown) [address] [place] [address] (units (unknown) date) unknown) (unknown) (no (unknown) (unknown) [place], [place] (units ( unknown) date) [address] unknown) (unknown) (no (unknown) (unknown) [facility] (units (unknown) date) unknown) (unknown) [...] Reid Martell, unknown) Clifford on 02/08/2022 at 8:42 (unknown) (no (unknown) (unknown) Bones and chest (units (unknown) date) wall: No unknown) suspicious bony lesions. Overlying soft tissues (unknown) (no (unknown) (unknown) COMPARISON: (units (un known) date) [facility], unknown) CR, XR CHEST 1V, 02/04/2022, 18:16. (unknown) (no (unknown) (unknown) Dictated by: (units (u nknown) date) Reid Martell, dinorah) Clifford on 02/08/2022 at 8:40 (unknown) (no [...] (unknown) (unknown) Accession Number: (units (unknown) date) [id number] unknown) (unknown) (no (unknown) (unknown) Age/Sex: 76 / M (units (unknown) date) Date of Service: unknown) (unknown) (no (unknown) (unknown) : 1945 (units (unknown) date) Acct:[id number] unknown) (unknown) (no (unknown) (unknown) Loc: ED (units (unkno wn) date) unknown) (unknown) (no (unknown) (unknown) [id number] (units (unk nown) date) unknown) (unknown) (no [...] (units (unkno wn) date) unknown) Result panel 48 (unknown) (no (unknown) (unknown) (no value) (units [...] (unknown) date) unknown) (unknown) (no (unknown) (unknown) [facility] (units (unknown) date) [address] [place] [address] unknown) [place] [address] (unknown) (no (unknown) (unknown) JERKING, (units (unkno [...] date) grams unknown) (unknown) (no (unknown) (unknown) [id number] (units (unkn own) date) unknown) (unknown) (no [...] (unknown) (unknown) : 1945 (units (unknown) date) Acct:[id number] unknown) (unknown) (no (unknown) (unknown) Kimmy Gomez, [...] DISCHARGED FROM 02/07 (unknown) (no (unknown) (unknown) Jugarvz-XNI-UuS (units (unknown) date) Reductase AdvReac unknown) Mild [...] (unknown) date) unknown) (unknown) (no (unknown) (unknown) [DUWXKGD-QYZ-XPO (units (unknown) date) REDUCTASE unknown) (unknown) (no [...] Severe Paranoia Verified 02/08/22 08:38 Result panel 49 (unknown) (no date) (unknown) (unknown) 0 /uL [...] (unknown) 92.8 fL (unkn own) Result panel 50 (unknown) (no (unknown) (unknown) (no value) (units [...] (unknown) date) unknown) (unknown) (no (unknown) (unknown) [facility] (units (unknown) date) [address] unknown) [place] [address] (unknown) (no (unknown) (unknown) JERKING, (units (unkno [...] date) grams unknown) (unknown) (no (unknown) (unknown) [id number] (units (unkn own) date) unknown) (unknown) (no [...] (unknown) (unknown) : 1945 (units (unknown) date) Acct:[id number] unknown) (unknown) (no (unknown) (unknown) Kimmy Gomez, [...] DISCHARGED FROM 02/07 (unknown) (no (unknown) (unknown) Efzobas-RIY-MwH (units (unknown) date) Reductase AdvReac unknown) Mild [...] (unknown) date) unknown) (unknown) (no (unknown) (unknown) [[id number]-FVA-FXP (units (unknown) date) REDUCTASE unknown) (unknown) (no [...] (units (unk nown) date) grossly intact. unknown) Manager Protein strength equal bilaterally able lift both legs [...] having lumbar fusion he during Result panel 51 (unknown) (no date) (unknown) (unknown) 1.6 mmol/L (unkn own) Result panel 52 (unknown) (no date) (unknown) (unknown) > 60 [...] (unknown) 849 U/L (unkn own) Result panel 53 (unknown) (no date) (unknown) (unknown) Negative (units (unkn own) unknown) Result panel 54 (unknown) (no date) (unknown) [...] (unknown) 849 U/L (unkn own) Result panel 55 (unknown) (no (unknown) (unknown) (no value) (units [...] (unknown) date) unknown) (unknown) (no (unknown) (unknown) [facility] (units (unknown) date) [address] unknown) [place] [address] (unknown) (no (unknown) (unknown) JERKING, (units (unkno [...] date) tablet unknown) (unknown) (no (unknown) (unknown) 07/04/22 (units (unkno wn) date) unknown) (unknown) (no [...] date) grams unknown) (unknown) (no (unknown) (unknown) [id number] (units (unkn own) date) unknown) (unknown) (no [...] % (unknown) (no (unknown) (unknown) CMP (units (o wn) date) [Comprehensive unknown) Metabolic Panel] Stat (unknown) (no (unknown) (unknown) COPD (chronic (units ( unknown) date) obstructive unknown) pulmonary disease) (unknown) (no (unknown) (unknown) COVID19 -Nasal (units (unknown) date) RAPID/Pre-Proc unknown) Stat (unknown) (no (unknown) (unknown) Calcium (units (o [...] (unknown) (unknown) : 1945 (units (unknown) date) Acct:[id number] unknown) (unknown) (no (unknown) (unknown) Kimmy Gomez, [...] (unknown) Lymph # (Auto) (units (unknown) date) (0360-7736) /uL unknown) (unknown) (no (unknown) (unknown) Lymph # (Auto) (units (unknown) date) 700 L unknown) (0658-8230) /uL (unknown) (no (unknown) (unknown) Lymph % [...] date) Ambulatory unknown) (unknown) (no (unknown) (unknown) Hendricks # (Auto) (units ( unknown) date) (0-900) /uL unknown) (unknown) (no (unknown) (unknown) Hendricks # (Auto) (units ( unknown) date) 800 (0-900) unknown) /uL (unknown) (no (unknown) (unknown) Hendricks % (Auto) (units ( unknown) date) (3-14) % unknown) (unknown) (no (unknown) (unknown) Hendricks % (Auto) (units ( unknown) date) 14.4 [...] Neut # (Auto) (units ( unknown) date) (7629-6695) /uL unknown) (unknown) (no (unknown) (unknown) Neut # (Auto) (units ( unknown) date) 4200 unknown) (3197-1353) /uL (unknown) (no (unknown) (unknown) Neut % [...] DISCHARGED FROM 02/07 (unknown) (no (unknown) (unknown) Inulgda-HDU-IqL (units (unknown) date) Reductase AdvReac unknown) Mild [...] Not Available] unknown) (unknown) (no (unknown) (unknown) [DHDRJPK-NNW-GKW (units (unknown) date) REDUCTASE unknown) (unknown) (no [...] (units (unk nown) date) grossly intact. unknown) Manager Protein strength equal bilaterally able lift both legs [...] having lumbar fusion he during Result panel 56 (unknown) (no (unknown) (unknown) (no value) (units [...] (unknown) date) unknown) (unknown) (no (unknown) (unknown) [facility] (units (unknown) date) [address] [place] [address] unknown) [place] [address] (unknown) (no (unknown) (unknown) JERKING, (units (unkno [...] date) grams unknown) (unknown) (no (unknown) (unknown) [id number] (units (unkn own) date) unknown) (unknown) (no [...] Stat (unknown) (no (unknown) (unknown) Calcium (units (o [...] (10/22/16) (unknown) (no (unknown) (unknown) Consult to [facility] [place] - (units (unknown) date) Hand Zipper Trimmer unknown) Stat (unknown) (no (unknown) (unknown) Consult [...] (unknown) (unknown) : 1945 (units (unknown) date) Acct:[id number] unknown) (unknown) (no (unknown) (unknown) Kimmy Gomez, [...] (unknown) Lymph # (Auto) (units (unknown) date) (1997-8719) /uL unknown) (unknown) (no (unknown) (unknown) Lymph # (Auto) (units (unknown) date) 700 L unknown) ([id number]) /uL (unknown) (no (unknown) (unknown) Lymph % [...] date) Ambulatory unknown) (unknown) (no (unknown) (unknown) Hendricks # (Auto) (units ( unknown) date) (0-900) /uL unknown) (unknown) (no (unknown) (unknown) Hendricks # (Auto) (units ( unknown) date) 800 (0-900) unknown) /uL (unknown) (no (unknown) (unknown) Hendricks % (Auto) (units ( unknown) date) (3-14) % unknown) (unknown) (no (unknown) (unknown) Hendricks % (Auto) (units ( unknown) date) 14.4 [...] Neut # (Auto) (units ( unknown) date) ([id number]) /uL unknown) (unknown) (no (unknown) (unknown) Neut # (Auto) (units ( unknown) date) 4200 unknown) ([id number]) /uL (unknown) (no (unknown) (unknown) Neut % [...] DISCHARGED FROM 02/07 (unknown) (no (unknown) (unknown) Naohjaj-OQK-XbN (units (unknown) date) Reductase AdvReac unknown) Mild [...] Not Available] unknown) (unknown) (no (unknown) (unknown) [AKTSNNZ-IWJ-SEY (units (unknown) date) REDUCTASE unknown) (unknown) (no [...] (units (unk nown) date) grossly intact. unknown) Manager Protein strength equal bilaterally able lift both legs [...] having lumbar fusion he during Result panel 57 (unknown) (no (unknown) (unknown) [...] date) Shiga Toxin 2 unknown) Result panel 58 (unknown) (no (unknown) (unknown) (no value) (units (unk nown) date) unknown) (unknown) (no (unknown) (unknown) Radiologist (units (un known) date) Impression: unknown) (unknown) (no (unknown) (unknown) Date of Service: (units (unknown) date) 02/08/22 unknown) (unknown) (no (unknown) (unknown) (no value) (units (unk nown) date) unknown) (unknown) (no (unknown) (unknown) <Electronically (units (unknown) date) signed by Bridgett Fletcher D.O.> (unknown) (no (unknown) (unknown) 'He [...] (unknown) date) unknown) (unknown) (no (unknown) (unknown) [facility] (units (unknown) date) [address] unknown) [place] [address] (unknown) (no (unknown) (unknown) JERKING, (units (unkno [...] unknown) provider in 2-3 days or call [phone] (unknown) (no (unknown) (unknown) *Return to ER if (units (unknown) date) you should have unknown) any new, worsening or concerning symptoms (unknown) (no (unknown) (unknown) *What to do: You (units (unknown) date) were once again unknown) offered opportunity for rehab facility. It (unknown) (no (unknown) (unknown) *You have been (units (unknown) date) diagnosed with unknown) postoperative pain (unknown) (no (unknown) (unknown) [id number] (units (unkn own) date) unknown) (unknown) (no [...] (unknown) (unknown) Accession Number: (units (unknown) date) [id number] ?? unknown) (unknown) (no (unknown) (unknown) Acct:[id number] (units (unknown) date) unknown) (unknown) (no (unknown) [...] (unknown) (unknown) COMPARISON:? (units (u nknown) date) [facility], unknown) CR, XR CHEST 1V, 02/04/2022, 18:16. (unknown) (no (unknown) (unknown) CONTROLLED (units (k ) date) SUBSTANCE unknown) DISCHARGE (Narcotoic/benzodi azepine/Flexeril/P henergan) (unknown) (no (unknown) (unknown) COPD (chronic (units ( unknown) date) obstructive unknown) pulmonary disease) (unknown) (no (unknown) (unknown) Calcium (units (o [...] unknown) (unknown) (no (unknown) (unknown) Consult to AUTOMOTIVE WINDOW TINTER - (units (unknown) date) Hand Zipper Trimmer unknown) Stat (unknown) (no (unknown) (unknown) Consult [...] (unknown) (unknown) : 1945 (units (unknown) date) Acct:[id number] unknown) (unknown) (no (unknown) (unknown) : 1945 (units (unknown) date) unknown) (unknown) (no (unknown) (unknown) Kimmy Gomez, (units (unknown) date) MD [Primary Care unknown) Provider] - (unknown) (no (unknown) (unknown) Date of Service: (units (unknown) date) 02/08/22 unknown) (unknown) (no (unknown) (unknown) Departure (units (unkn own) date) unknown) (unknown) (no (unknown) (unknown) Dictated by: (units (u nknown) date) Reid Martell unknown) Clifford on 02/08/2022 at 8:40 ? ? (unknown) [...] (unknown) Lymph # (Auto) (units (unknown) date) ([id number]) /uL unknown) (unknown) (no (unknown) (unknown) Lymph # (Auto) (units (unknown) date) 700 L unknown) ([id number]) /uL (unknown) (no (unknown) (unknown) Lymph % [...] date) unknown) (unknown) (no (unknown) (unknown) MR#: [id number] (units (unknown) date) unknown) (unknown) (no (unknown) [...] date) Ambulatory unknown) (unknown) (no (unknown) (unknown) Hendricks # (Auto) (units ( unknown) date) (0-900) /uL unknown) (unknown) (no (unknown) (unknown) Hendricks # (Auto) (units ( unknown) date) 800 (0-900) unknown) /uL (unknown) (no (unknown) (unknown) Hendricks % (Auto) (units ( unknown) date) (3-14) % unknown) (unknown) (no (unknown) (unknown) Hendricks % (Auto) (units ( unknown) date) 14.4 [...] Neut # (Auto) (units ( unknown) date) ([id number]) /uL unknown) (unknown) (no (unknown) (unknown) Neut # (Auto) (units ( unknown) date) 4200 unknown) (8968-1986) /uL (unknown) (no (unknown) (unknown) Neut % (Auto) (units ( unknown) date) (50-75) % unknown) (unknown) (no (unknown) (unknown) Neut % (Auto) (units ( unknown) date) 71.1 (50-75) % unknown) (unknown) (no (unknown) (unknown) No Action (units (unkn own) date) unknown) (unknown) (no (unknown) (unknown) Normal sinus (units (u nknown) date) rhythm rate 97 NC unknown) interval 172 QRS 90 QTC 482 [...] DISCHARGED FROM 02/07 (unknown) (no (unknown) (unknown) Aynzqgn-TSV-VdH (units (unknown) date) Reductase AdvReac unknown) Mild [...] Not Available] unknown) (unknown) (no (unknown) (unknown) [ATPFIRQ-OZG-BEP (units (unknown) date) REDUCTASE unknown) (unknown) (no [...] (units (unk nown) date) grossly intact. unknown) Manager Protein strength equal bilaterally able lift both legs [...] date) through your unknown) provider. Result panel 59 (unknown) (no date) (unknown) (unknown) (no value) (units (un known) unknown) (unknown) (no date) (unknown) (unknown) NO GROWTH (units (unk nown) AFTER 72 unknown) HOURS Result panel 60 (unknown) (no date) (unknown) (unknown) (no value) (units (un known) unknown) (unknown) (no date) (unknown) (unknown) NO GROWTH (units (unk nown) AFTER 24 unknown) HOURS Result panel 61 (unknown) (no date) (unknown) (unknown) (no value) (units (un known) unknown) (unknown) (no date) (unknown) (unknown) NO GROWTH (units (unk nown) AFTER 24 unknown) HOURS Result panel 62 (unknown) (no date) (unknown) (unknown) (no value) (units (un known) unknown) (unknown) (no date) (unknown) (unknown) NO GROWTH (units (unk nown) AFTER 4 DAYS unknown) Result panel 63 (unknown) (no date) (unknown) (unknown) NO GROWTH (units (unk nown) AFTER 48 unknown) HOURS (unknown) (no date) (unknown) (unknown) (no value) (units (un known) unknown) Result panel 64 (unknown) (no date) (unknown) (unknown) NO GROWTH (units (unk nown) AFTER 48 unknown) HOURS (unknown) (no date) (unknown) (unknown) (no value) (units (un known) unknown) Result panel 65 (unknown) (no date) (unknown) (unknown) (no value) (units (un known) unknown) (unknown) (no date) (unknown) (unknown) NO GROWTH (units (unk nown) AFTER 5 DAYS unknown) Result panel 66 (unknown) (no date) (unknown) (unknown) (no value) (units (un known) unknown) (unknown) (no date) (unknown) (unknown) NO GROWTH (units (unk nown) AFTER 5 DAYS unknown) Result panel 67 (unknown) (no date) (unknown) (unknown) (no value) (units (un known) unknown) (unknown) (no date) (unknown) (unknown) NO GROWTH (units (unk nown) AFTER 72 unknown) HOURS Result panel 68 (unknown) (no date) (unknown) (unknown) (no value) (units (un known) unknown) (unknown) (no date) (unknown) (unknown) NO GROWTH (units (unk nown) AFTER 72 unknown) HOURS Result panel 69 (unknown) (no date) (unknown) (unknown) (no value) (units (un known) unknown) (unknown) (no date) (unknown) (unknown) NO GROWTH (units (unk nown) AFTER 4 DAYS unknown) Result panel 70 (unknown) (no date) (unknown) (unknown) (no value) (units (un known) unknown) (unknown) (no date) (unknown) (unknown) NO GROWTH (units (unk nown) AFTER 4 DAYS unknown) Result panel 71 (unknown) (no date) (unknown) (unknown) (no value) (units (un known) unknown) (unknown) (no date) (unknown) (unknown) NO GROWTH (units (unk nown) AFTER 5 DAYS unknown) Result panel 72 (unknown) (no date) (unknown) (unknown) (no value) (units (un known) unknown) (unknown) (no date) (unknown) (unknown) NO GROWTH (units (unk nown) AFTER 5 DAYS unknown) Result panel 73 (unknown) (no (unknown) (unknown) (no value) (units [...] unknown) date) unknown) (unknown) (no (unknown) (unknown) 03/04/22 0857 (units ( unknown) date) unknown) (unknown) (no [...] notified: Yes unknown) (unknown) (no (unknown) (unknown) [facility] (units (unknown) date) [address] unknown) [place] [address] (unknown) (no (unknown) (unknown) Label Comments: (units [...] (unknown) date) unknown) (unknown) (no (unknown) (unknown) [id number] (units (unkn own) date) unknown) (unknown) (no [...] unknown) fusion (unknown) (no (unknown) (unknown) 7. [place] of bone (units (unknown) date) marrow from iliac unknown) crest through a separate incision (unknown) (no (unknown) (unknown) 02/16/2022 @ 1:00 (units (unknown) date) pm at [facility] unknown) [facility] office in [place].) (unknown) (no (unknown) (unknown) 8. 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 unknown) (unknown) (no (unknown) (unknown) k> 03/04/22 (units (unknown) date) 0857 unknown) (unknown) (no (unknown) (unknown) medication they [...] unknown) date) type: does not use unknown) Social History date description facility (no date) Ex-smoker (finding) [facility] Vital Signs date measurement value units [id number]+0000 BMI BMI 28.3 kg/m2 [id number]+0000 height_metric height_metric 185.42 cm [id number]+0000 height_standard height_standard 73 in +0000 weight_metric weight_metric 44.24 kg +0000 weight_standard weight_standard 97.52 lb +0000 o2_saturation o2_saturation [...]
[2022-04-09] MEDS ORDERED: oxyCODONE 5 MG TABLET PO STA (09:57)
--- NOTE | 2022-04-09 10:04 | XRAY Report ---
PROCEDURE: Hip w/Pelvis 2-3V LT INDICATIONS: L hip pain no known injury TECHNIQUE: AP pelvis with lateral view(s) of the left hip(s). COMPARISON: None. 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 The inferior aspect of the lumbosa cral fixation hardware appears grossly intact. No acute fracture or dislocation. Soft tissues: The visualized bowel gas pattern is normal. Heterotopic ossification is present near t he left iliac crest. Herniorrhaphy sutures are present at midline. IMPRESSION: Expected appearances of bilateral hip arthroplasties. Reviewed by: Nayeli Reynolds MD on 04/09/2022 10:02 AM PDT Approved by: Nayeli Reynolds MD on 04/09/2022 10:02 AM PDT Station ID: [id number]
[2022-04-09] MEDS ORDERED: ONDANSETRON ODT 4 MG TABLET TL STA (10:11)
--- NOTE | 2022-04-09 10:25 | ED Physician Documentation ---
History of Present Illness - Stated complaint Stated Complaint: L HIP PX - Chief complaint Chief Complaint: Trauma Ext - History obtained from History obtained from: Patient - History of Present Illness Timing: Last night Pain level max: 8 Pain level now: 8 - Additonal information Additional information: Patient is a 77-year-old male who has a history of bilateral hip prostheses. He states that last night it felt like his hip dislocated, but "relocated". He is now having increased pain. He takes Tylenol 3 chronically for pain at home but states that his pain has increased. Worse with movement and walking, better with rest. Review of Systems Constitutional: denies: Fever, Chills GI: denies: Vomiting Skin: denies: Rash Musculoskeletal: denies: Neck pain, Back pain Neurologic: denies: Headache PD PAST MEDICAL HISTORY - Past Medical History Cardiovascular: Hypertension, Coronary artery disease, CA, Atrial fibrillation, Murmur, Other Respiratory: Asthma, COPD Neuro: None Endocrine/Autoimmune: None GI: GERD, Hiatal hernia, Diverticulitis : Benign prostate hypertrophy, Nocturia HEENT: Chronic sinusitis, Chronic hearing loss Psych: Depression, Anxiety, Claustrophobia Musculoskeletal: Osteoarthritis, Chronic back pain, Other Derm: Herpes zoster, Other - Past Surgical History Past Surgical History: Yes General: Cholecystectomy, EGD Ortho: Hip replacement, Knee replacement, Arthroscopic surgery, Other Cardiovascular: CABG, Other HEENT: Other - Present Medications Home Medications: Ambulatory Orders Medication Instructions Recorded Confirmed Lorazepam [Ativan] 1 mg PO TID PRN 01/03/17 04/09/22 Levalbuterol Tartrate [Xopenex Hfa] 2 puffs INH Q4H PRN 06/21/17 04/09/22 traZODone [Desyrel] 400 mg PO QPM 06/21/17 04/09/22 Metoprolol Tartrate 50 mg PO DAILY 08/01/17 04/09/22 Sucralfate [Carafate] 1 gm PO ACHS #60 tablet 07/06/19 04/09/22 Acetaminophen/Cod 300/30 [Tylenol 1 each PO Q6H PRN #20 tablet 09/28/19 04/09/22 #3] Furosemide 20 mg PO DAILY PRN 07/13/20 04/09/22 Omeprazole 20 mg PO DAILY 07/13/20 04/09/22 Oxycodone HCl [Roxicodone] 5 mg PO Q8H PRN #7 tablet 04/09/22 - Allergies Allergies/Adverse Reactions: Allergies Allergy/AdvReac Type Severity Reaction Status Date / Time pantoprazole sodium * Allergy Intermediate Nausea Verified 02/11/22 03:41 [From Protonix] Dcogcyt-DQP-FlA Reductase Allergy Intermediate Unknown Verified 02/11/22 03:41 Inhibitor [Qlsvowh-Uts-Ivp Reductase Inhibitor] Sulfa (Sulfonamide Allergy Intermediate Rash Verified 02/11/22 03:41 Antibiotics) latex Allergy Mild Itching Verified 02/11/22 03:41 albuterol AdvReac Severe heart Verified 02/11/22 03:41 palpatation diazepam [From Valium] AdvReac Severe DELIRIUM Verified 02/11/22 03:41 hydrocodone [From [place]] AdvReac Anxiety Verified 02/11/22 03:41 morphine AdvReac Anxiety Verified 02/11/22 03:41 - Social History Does the pt smoke?: No Smoking Status: Never smoker Does the pt drink ETOH?: Yes Does the pt have substance abuse?: No - Immunizations Immunizations are current?: Yes - POLST Patient has POLST: No POLST Status: Full Code PD ED PE NORMAL - Vitals Vital signs reviewed: Yes - General General: Alert and oriented X 3, No acute distress - HEENT HEENT: Moist mucous membranes - Derm Derm: Warm and dry - Extremities Extremities: Other (Mild pain with range of motion of the left hip. No deformity. Neurovascular intact. No external rotation or leg shortening.) - Neuro Neuro: Alert and oriented X 3 - Psych Psych: Normal mood, Normal affect Results - Vitals Vitals: Vital Signs - 24 hr 04/09/22 09:08 Temperature 36.6 C Heart Rate 62 Respiratory 18 Rate Blood Pressure 141/67 H O2 Saturation 95 Oxygen O2 Source [With Activity] Room air O2 Source Room air - Rads (name of study) Left hip x-ray Radiology: Final report received, EMP read contemporaneously, See rad report (No acute abnormality) PD MEDICAL DECISION MAKING - ED course Complexity details: reviewed old records, reviewed results, re-evaluated patient, considered differential, d/w patient ED course: Patient with left hip pain. Pain well controlled here and is ambulating well. No acute findings on x-ray. No dislocation. We will have him follow-up with his doctor for further care. No signs of infection. No bruising or skin changes. Patient counseled regarding signs and symptoms for which I believe and urgent re-evaluation would be necessary. Patient with good understanding of and agreement to plan and is comfortable going home at this time This document was made in part using voice recognition software. While efforts are made to proofread this document, sound alike and grammatical errors may occur. Departure - Departure Disposition: Home, Self Care Clinical Impression: Hip pain Condition: Good Instructions: Replacement Hip Manage Pain Follow-Up: Kimmy Lim MD [Primary Care Provider] - Within 3 Days Prescriptions: Oxycodone HCl [Roxicodone] 5 mg PO Q8H PRN #7 tablet PRN Reason: Pain Comments: Please follow-up with your doctor for further care. Return if you worsen. Your x-ray does not show any acute abnormalities today. Your prescriptions were sent to [facility] in [place]. I am prescribing a short course of narcotic pain medication for you. These are potentially dangerous and addictive medications that should be used carefully. These medications may constipate you. Take an zdsy-ufq-hhotcyl stool softener (docusate) twice daily with plenty of water while taking these medications. If you go 24 hours without a bowel movement, take cpci-fha-xphhzxv miralax, per package instructions. Do not drink or drive while taking these medications. If you received narcotic or sedating medications while in the emergency depar tment, do not drive for 24 hours. Store this medication in a safe, secure place and out of reach of children. It is a violation of federal law to give or sell this medication to another person or to use in a manner other than prescribed. The ED will not refill narcotic prescriptions, including prescriptions lost or stolen. To dispose of unwanted medications: 1. [facility] [address] in [place] has a medication drop box. They accept prescription medications (in pill form) Tuesday through Tuesday 9:00 a.m. to 5:00 p.m. 2. The [facility] accepts prescription medications (in pill form only) for disposal year round. Call for more information. 3. Contact the [facility] for the next [facility] sponsored prescription drug collection event. , [phone], or [phone]; Discharge Date/Time: 04/09/22 10:30
== END 2022-04-09 10:30 | disposition home or self-care (01) ==
LOC: ED 09:01
DX: M25.552 Pain in left hip (principal); I10 Essential (primary) hypertension; I48.91 Unspecified atrial fibrillation; Z09 Encounter for follow-up examination after completed treatment for conditions other than malignant neoplasm; Z96.643 Presence of artificial hip joint, bilateral
CPT/HCPCS: 73502; 99284; A9270; Q0162

== ENCOUNTER 2022-04-14 14:21 | Outpatient (CLI) | payer MEDICARE ==
[2022-04-14 15:24] LABS: ALBUMIN 4.2 g/dL (3.2-5.5); ALBUMIN/GLOBULIN RATIO 1.7 (1.0-2.2); ALKALINE PHOSPHATASE 65 IU/L (42-121); ALT ALANINE AMINOTRANSFERASE 20 IU/L (10-60); AST ASPARTATE AMINOTRANSFERASE 21 IU/L (10-42); BILIRUBIN,TOTAL 0.6 mg/dL (0.2-1.0); BUN - BLOOD UREA NITROGEN 11 mg/dL (6-20); CALCIUM 8.9 mg/dL (8.5-10.3); CARBON DIOXIDE - CO2 29 mmol/L (21-32); CHLORIDE 102 mmol/L (101-111); CHOLESTEROL 160 mg/dL; CREATININE 0.7 mg/dL (0.6-1.2); GFR - MDRD 109 (>89); GLUCOSE 113 mg/dL (70-100); HDL CHOLESTEROL 40 mg/dL; LDL CHOLESTEROL,CALCULATED 88 mg/dL; LDL/HDL RATIO 2.2 (<3.6); POTASSIUM 4.2 mmol/L (3.5-5.0); SODIUM 138 mmol/L (135-145); TOTAL PROTEIN 6.7 g/dL (6.7-8.2); TRIGLYCERIDES 161 mg/dL; VLDL CHOLESTEROL 32 mg/dL
[2022-04-14 20:42] LABS: ESTIMATED AVERAGE GLUCOSE 117 mg/dL (70-100); HEMOGLOBIN A1c% 5.7 % (4.27-6.07)
[2022-04-15 09:59] LABS: BASOPHILS # (AUTO) 0.1 10^3/uL (0.0-0.1); BASOPHILS % (AUTO) 1.1 %; EOSINOPHILS # (AUTO) 0.4 10^3/uL (0.0-0.7); LYMPHOCYTES % (AUTO) 19.2 %; MEAN CORPUSCULAR HGB CONC 31.7 g/dL (32.0-36.0); MEAN CORPUSCULAR VOLUME 94.5 fL (80.0-94.0); MEAN PLATELET VOLUME 10.5 fL (7.4-11.4); MONOCYTES # (AUTO) 0.5 10^3/uL (0.0-1.0); MONOCYTES % (AUTO) 10.2 %; NEUTROPHILS # (AUTO) 3.3 10^3/uL (1.5-6.6); NEUTROPHILS % (AUTO) 62.3 %; PLT - PLATELET COUNT 194 10^3/uL (130-450); RED BLOOD COUNT 4.34 10^6/uL (4.70-6.10); RED CELL DISTRIBUTION WIDTH 12.7 % (12.0-15.0); WHITE BLOOD COUNT 5.3 x10^3/uL (4.8-10.8)
== END 2022-04-14 14:22 | disposition home or self-care (01) ==
LOC: LAB 14:21
PROVIDERS: ATTEND Internal Medicine
DX: I10 Essential (primary) hypertension (principal); F41.9 Anxiety disorder, unspecified; I25.10 Atherosclerotic heart disease of native coronary artery without angina pectoris; E11.9 Type 2 diabetes mellitus without complications; E16.2 Hypoglycemia, unspecified; J45.909 Unspecified asthma, uncomplicated; Z79.899 Other long term (current) drug therapy
CPT/HCPCS: 36415; 80053; 80061; 82043; 82570; 83036; 83721; 84443; 85025

== ENCOUNTER 2022-04-27 17:37 | Emergency (ER) | payer MEDICARE ==
--- OUTSIDE RECORDS SUMMARY | 2022-04-27 17:45 | EXTERNAL MEDICAL SUMMARY RPT | Continuity of Care Document ---
:1945 Author Organization [place] Address [address] [place] [address] Phone Allergies and Intolerances date description facility type (no date) Mild [facility] (unknown) (no date) Gipqjpo-WPA-FjV Reductase Inhibitor [facility] (unknown) (no date) Sulfa (Sulfonamide Antibiotics) [facility] (unknown) (no date) buprenorphine [facility] (unknown) (no date) celecoxib [facility] (unknown) (no date) diazepam [facility] (unknown) (no date) fentanyl [facility] (unknown) (no date) hydromorphone [facility] (unknown) (no date) hyoscyamine [facility] (unknown) (no date) latex [facility] (unknown) (no date) morphine [facility] (unknown) (no date) varenicline [facility] (unknown) Encounters No information. Functional Status No information. Immunizations No information. Medications date description facility +0000 Oxycodone Hydrochloride 5 MG Oral Tabl et [facility] [id number]+0000 Docusate Sodium 100 MG Oral Capsule I [facility] [id number]+0000 montelukast 10 MG Oral Tablet [facility] [id number]+0000 Furosemide 40 MG Oral Tablet [facility]ital [id number]+0000 24 HR metoprolol succinate 100 MG Exte nded [facility] Release Tablet [id number]+0000 Acetaminophen 300 MG / Codeine Phospha te 30 [facility] MG Oral Tablet Problems No information. Procedures date description facility [id number]+0000 General Physician [facility] 13525190151050+0000 General Physician [facility] +0000 [facility] Results/Labs test date author facility value unit interpret ation Result panel 1 (unknown) (no date) (unknown) (unknown) Negative (units (unkn own) unknown) Result panel 2 (unknown) (no (unknown) (unknown) (no value) (units (unk nown) date) unknown) (unknown) (no (unknown) (unknown) Date of Service: (units (unknown) date) 02/03/22 unknown) (unknown) (no (unknown) (unknown) 02/03/22 0932 (units ( unknown) date) unknown) (unknown) (no (unknown) (unknown) [facility] (units (unknown) date) [address] unknown) [place] [address] (unknown) (no (unknown) (unknown) Pre-operative (units ( unknown) date) Note unknown) (unknown) (no (unknown) (unknown) (no value) (units (unk nown) date) unknown) (unknown) (no (unknown) (unknown) [id number] (units (unkn own) date) unknown) (unknown) (no [...] (unknown) (unknown) : 1945 (units (unknown) date) Acct:[id number] unknown) (unknown) (no (unknown) (unknown) Deterioration of [...] less-positive unknown) ultimate med/surg outcome Result panel 3 (unknown) (no (unknown) (unknown) (no value) (units (unk nown) date) unknown) (unknown) (no (unknown) (unknown) [address] [place] [address] (units (unknown) date) unknown) (unknown) (no (unknown) (unknown) [place], [place] (units ( unknown) date) [address] unknown) (unknown) (no (unknown) (unknown) [facility] (units (unknown) date) unknown) (unknown) (no (unknown) (unknown) Signed (units (unkno wn) date) unknown) (unknown) (no (unknown) (unknown) XRay Report (units (un known) date) unknown) (unknown) (no (unknown) (unknown) (no value) (units (unk nown) date) unknown) (unknown) (no (unknown) (unknown) 02/03/22 (units (unkno wn) date) unknown) (unknown) (no (unknown) (unknown) Approved by: (units (u nknown) date) mohamud Mccullough M.D. on 02/03/2022 at 16:09 (unknown) (no (unknown) (unknown) Bones: 5 (units (unkno wn) date) iju-ecq-ovqvwto unknown) vertebrae are present. There is normal bony (unknown) (no (unknown) (unknown) COMPARISON: (units (un known) date) [facility], unknown) CT, CT LUMBAR SPINE WO CON, 01/21/2022, 14:03. (unknown) (no (unknown) (unknown) Dictated by: (units (u nknown) date) Zeina Saavedra unknownRui Horton on 02/03/2022 at 16:08 (unknown) (no (unknown) [...] through S1 is (units (unknown) date) present. Hardware unknown) is intact. There is relatively good (unknown) (no (unknown) (unknown) TECHNIQUE: 3 (units (u nknown) date) views of the unknown) lumbar spine were acquired. (unknown) (no (unknown) (unknown) alignment. (units (unk nown) date) Intervertebral unknown) spacers are also noted. (unknown) (no (unknown) (unknown) vertebral body (units (unknown) date) compression unknown) fractures. No suspicious bony lesions. Posterior (unknown) (no (unknown) (unknown) Accession (units (unkn own) date) Number: unknown) [id number] (unknown) (no (unknown) (unknown) Age/Sex: 76 / M (units (unknown) date) Date of Service: unknown) (unknown) (no (unknown) (unknown) : 1945 (units (unknown) date) Acct:[id number] unknown) (unknown) (no (unknown) (unknown) [facility] (units (unkno wn) date) unknown) (unknown) (no (unknown) (unknown) Loc: ICU 226-1 (units (unknown) date) unknown) (unknown) (no (unknown) (unknown) [id number] (units (unk nown) date) unknown) (unknown) (no (unknown) (unknown) Ordering (units (unkno wn) date) Provider: unknown) Carlos Montemayor MD (unknown) (no (unknown) (unknown) PROCEDURE: XR (units ( unknown) date) LUMBAR SPINE 2-3V unknown) (unknown) (no (unknown) (unknown) Patient: (units (unkno wn) date) Radha Peraza D unknown) MR#: (unknown) (no (unknown) (unknown) Procedure: XR (units ( unknown) date) lumbar spine 2-3V unknown) (unknown) (no (unknown) (unknown) alignment. No (units ( unknown) date) unknown) (unknown) (no (unknown) (unknown) anatomic (units (unkno wn) date) unknown) (unknown) (no (unknown) (unknown) fusion from (units (un known) date) unknown) Result panel 4 (unknown) (no date) (unknown) (unknown) (no value) (units (un known) unknown) (unknown) (no date) (unknown) (unknown) Date of (units (unkn own) Service: unknown) 02/03/22 (unknown) (no date) (unknown) (unknown) Anesthesia (units (un known) Note unknown) (unknown) (no date) (unknown) (unknown) [facility] (units (unkn own) [place] [address] unknown) [address] [place] [address] (unknown) (no date) (unknown) (unknown) (no value) (units (un known) unknown) (unknown) (no date) (unknown) (unknown) [id number] (units (unk nown) unknown) (unknown) (no date) (unknown) (unknown) Age/Sex: 76 / (units (unknown) M unknown) (unknown) (no date) (unknown) (unknown) : (units (unkn own) 1945 unknown) Acct:[id number] (unknown) (no date) (unknown) (unknown) Patient: (units (unkn own) Radha Peraza unknown) D MR#: M (unknown) (no date) (unknown) (unknown) Provider: (units (unk nown) Carlos Montemayor MD unknown) (unknown) (no date) (unknown) (unknown) Signed By: (units (un known) unknown) Result panel 5 (unknown) (no (unknown) (unknown) (no value) (units (unk nown) date) unknown) (unknown) (no (unknown) (unknown) Date of Service: (units (unknown) date) 02/03/22 unknown) (unknown) (no (unknown) (unknown) 02/03/22 1538 (units ( unknown) date) unknown) (unknown) (no (unknown) (unknown) [facility] (units (unknown) date) [address] unknown) [place] [address] (unknown) (no (unknown) (unknown) Operative Note (units [...] visible motion indicating (unknown) (no (unknown) (unknown) [id number] (units (unkn own) date) unknown) (unknown) (no [...] unknown) fusion (unknown) (no (unknown) (unknown) 7. [place] of bone (units (unknown) date) marrow from [...] (unknown) date) unknown) (unknown) (no (unknown) (unknown) Shipping And Receiving: [place] (units (unknown) date) Beh unknown) (unknown) [...] (unknown) (unknown) : 1945 (units (unknown) date) Acct:[id number] unknown) (unknown) (no (unknown) (unknown) Date of [...] (unknown) (unknown) L3, L4 , L5 and S1 (units (unknown) date) pedicle screws unknown) placement. This was done [...] grafting material. (unknown) (no (unknown) (unknown) bilaterally. Small (units (unknown) date) 1 cm incision was unknown) made over the PSIS for placement of the (unknown) (no (unknown) (unknown) bilaterally. Total (units (unknown) date) 10 caps and 2 unknown) titanium rods [...] navigation (units (unk nown) date) guidance. After the unknown) cage was placed, AP and lateral C-arm [...] (unknown) onto the power (units (unknown) date) boat driver and inserted unknown) into the pedicles [...] and unknown) solid at the L5-S1 level. Gonzálezus MARS (unknown) (no (unknown) (unknown) reference probe [...] its maximum height using the Result panel 6 (unknown) (no date) (unknown) (unknown) 0.2 E.U./dL [...] YELLOW (units (unkn own) unknown) Result panel 7 (unknown) (no date) (unknown) (unknown) 0.2 E.U./dL [...] YELLOW (units (unkn own) unknown) Result panel 8 (unknown) (no date) (unknown) (unknown) Negative for (units ( unknown) MRSA unknown) Result panel 9 (unknown) (no date) (unknown) (unknown) 12.6 g/dL (unkn own) (unknown) (no date) (unknown) (unknown) 35.4 % (unkn own) Result panel 10 (unknown) (no (unknown) (unknown) [...] unknown) date) unknown) (unknown) (no (unknown) (unknown) [facility] (units (unknown) date) [address] unknown) [place] [address] (unknown) (no (unknown) (unknown) Laboratory (units (unk [...] currently well controlled (unknown) (no (unknown) (unknown) [id number] (units (unkn own) date) unknown) (unknown) (no [...] (unknown) (unknown) : 1945 (units (unknown) date) Acct:[id number] unknown) (unknown) (no (unknown) (unknown) Date Patient [...] (no (unknown) (unknown) Hct 35.4 L (units (unk nown) date) unknown) (unknown) (no (unknown) (unknown) Hgb 12.6 L (units (unk nown) date) unknown) (unknown) (no (unknown) (unknown) His [...] Screen MRSA (units (unknown) date) (PCR) Negative for unknown) mrsa (unknown) (no (unknown) (unknown) Neck pain, [...] (units (unk nown) date) complaining of unknown) [id number]-uz-[id number] low back pain this morning. He has [...] (units (unkn own) date) Yas Maravilla unknownRui Cadet (unknown) (no (unknown) (unknown) Pulse Oximetry 96 [...] Maravilla PA-C) (unknown) (no (unknown) (unknown) Temperature 98.1 (units (unknown) date) F unknown) (unknown) (no (unknown) (unknown) Time Patient (units (u nknown) date) Seen: 09:00 unknown) (unknown) (no (unknown) (unknown) Ur Culture (units (unk nown) date) Indicated? Cult unknown) not indicated (unknown) (no (unknown) (unknown) Ur Leukocyte (units (u nknown) date) Esterase Negative unknown) (unknown) (no (unknown) (unknown) Ur Specific (units (un known) date) [place] 1.025 unknown) (unknown) (no (unknown) (unknown) Ur [...] (no (unknown) (unknown) Urine pH 5.5 (units (u nknown) date) unknown) (unknown) (no (unknown) (unknown) Ventricular [...] not use unknown) (unknown) (no (unknown) (unknown) want him to be (units (unknown) date) discharged on a unknown) fentanyl patch. Again, we had a long discussion (unknown) (no (unknown) (unknown) with front wheel (units (unknown) date) walker. Limit unknown) bending, lifting, twisting x6 weeks (unknown) (no (unknown) (unknown) with the patient (units (unknown) date) and his unknown) today. The patient seems to be responding Result panel 11 (unknown) (no date) (unknown) (unknown) (no value) (units (un known) unknown) (unknown) (no date) (unknown) (unknown) [address]) [address] unknown) (unknown) (no date) (unknown) (unknown) [place] (units (unknown) [address] unknown) (unknown) (no date) (unknown) (unknown) [facility] (unkn own[facility] unknown) (unknown) (no date) (unknown) (unknown) Signed (units (unkn own) unknown) (unknown) (no date) (unknown) (unknown) XRay Report (units (u nknown) unknown) (unknown) (no date) (unknown) (unknown) (no value) (units (un known) unknown) (unknown) (no date) (unknown) (unknown) 02/04/22 (units (unkn own) unknown) (unknown) (no date) (unknown) (unknown) Approved by: (units ( unknown) [place] unknown) Clifford Jaimes on 02/04/2022 at 19:07 (unknown) (no date) (unknown) (unknown) Bones and (units (unk nown) chest wall: No unknown) suspicious bony lesions. Overlying soft tissues (unknown) (no date) (unknown) (unknown) COMPARISON: (units (u nknown) [place] unknown) [facility] , XR CHEST 1V, 11/28/2021, 15:25. (unknown) (no date) (unknown) (unknown) Dictated by: (units ( unknown) [place] unknown) Clifford Jaimes on 02/04/2022 at 19:06 (unknown) (no date) (unknown) (unknown) FINDINGS: (units (unk nown) unknown) (unknown) (no date) (unknown) (unknown) IMPRESSION: No (units (unknown) evidence acute unknown) pulmonary process. (unknown) (no date) (unknown) (unknown) [...] sternotomy (unknown) (no date) (unknown) (unknown) TECHNIQUE: One (units (unknown) view of the unknown) chest was acquired. (unknown) (no date) (unknown) (unknown) unremarkable. (units (unknown) unknown) (unknown) (no date) (unknown) (unknown) Accession (units (unk nown) Number: unknown) [id number] (unknown) (no date) (unknown) (unknown) Age/Sex: 76 / (units (unknown) M Date of unknown) Service: (unknown) (no date) (unknown) (unknown) : (units (unkn own) 1945 unknown) Acct:[id number] (unknown) (no date) (unknown) (unknown) Loc: 224-1 (units (unknown) unknown) (unknown) (no date) (unknown) (unknown) [id number] (units (un known) unknown) (unknown) (no date) [...] (unknown) cardiomegaly. (units (unknown) unknown) Result panel 12 (unknown) (no (unknown) (unknown) (no value) (units (unk nown) date) unknown) (unknown) (no (unknown) (unknown) Date of Service: (units (unknown) date) 02/03/22 unknown) (unknown) (no (unknown) (unknown) 02/04/22 1753 (units ( unknown) date) unknown) (unknown) (no (unknown) (unknown) Event Note (units (unk nown) date) unknown) (unknown) (no (unknown) (unknown) [facility] (units (unknown) date) [address] unknown) [place] [address] (unknown) (no (unknown) (unknown) Will order CXR. (units (unknown) date) unknown) (unknown) (no (unknown) (unknown) (no value) (units (unk nown) date) unknown) (unknown) (no (unknown) (unknown) (amenable to (units (u nknown) date) APAP), and has unknown) been noncompliant w/ spirometer use. (unknown) (no (unknown) (unknown) [id number] (units (unkn own) date) unknown) (unknown) (no (unknown) (unknown) Age/Sex: 76 / M (units (unknown) date) unknown) (unknown) (no (unknown) (unknown) : 1945 (units (unknown) date) Acct:[id number] unknown) (unknown) (no (unknown) (unknown) Date Patient [...] (unknown) (no (unknown) (unknown) Plan: D/c (units (unkn own) date) vistaril, d/c unknown) fentanyl patch. Will [...] sitting in chair, somnolent and Result panel 13 (unknown) (no (unknown) (unknown) (no value) (units (unk nown) date) unknown) (unknown) (no (unknown) (unknown) Date of Service: (units (unknown) date) 02/03/22 unknown) (unknown) (no (unknown) (unknown) (no value) (units (unk nown) date) unknown) (unknown) (no (unknown) (unknown) - (units (unkno wn) date) unknown) (unknown) (no (unknown) (unknown) 02/04/22 08:53 (units (unknown) date) unknown) (unknown) (no (unknown) (unknown) [facility] (units (unknown) date) [address] unknown) [place] [address] (unknown) (no (unknown) (unknown) Laboratory (units (unk [...] (unknown) date) unknown) (unknown) (no (unknown) (unknown) [id number] (units (unkn own) date) unknown) (unknown) (no [...] (unknown) (unknown) : 1945 (units (unknown) date) Acct:[id number] unknown) (unknown) (no (unknown) (unknown) Date Patient [...] (no (unknown) (unknown) Hct 35.4 L (units (unk nown) date) unknown) (unknown) (no (unknown) (unknown) Hgb 12.6 L (units (unk nown) date) unknown) (unknown) (no (unknown) (unknown) History [...] type: does not use unknown) Result panel 14 (unknown) (no (unknown) (unknown) (no value) (units (unk nown) date) unknown) (unknown) (no (unknown) (unknown) Date of Service: (units (unknown) date) 02/03/22 unknown) (unknown) (no (unknown) (unknown) (no value) (units (unk nown) date) unknown) (unknown) (no (unknown) (unknown) - (units (unkno wn) date) unknown) (unknown) (no (unknown) (unknown) 02/04/22 08:53 (units (unknown) date) unknown) (unknown) (no (unknown) (unknown) [facility] (units (unknown) date) [address] [place] [address] Street unknown) [place] [address] (unknown) (no (unknown) (unknown) Laboratory (units (unk [...] (unknown) date) unknown) (unknown) (no (unknown) (unknown) [id number] (units (unkn own) date) unknown) (unknown) (no [...] (unknown) (unknown) : 1945 (units (unknown) date) Acct:[id number] unknown) (unknown) (no (unknown) (unknown) Date Patient [...] (no (unknown) (unknown) Hct 35.4 L (units (unk nown) date) unknown) (unknown) (no (unknown) (unknown) Hgb 12.6 L (units (unk nown) date) unknown) (unknown) (no (unknown) (unknown) History [...] bathroom (units (unknown) date) on his own. [place] unknown) soft, compressible, nontender and without (unknown) (no (unknown) (unknown) household (units (unkn own) date) members: spouse unknown) (unknown) (no (unknown) (unknown) just feels awful. (units (unknown) date) He is somewhat unknown) more alert today than on my visit yesterday. (unknown) (no (unknown) (unknown) my guts are being (units (unknown) date) ripped out.' He is unknown) unable to be more specific than this. [...] not use unknown) (unknown) (no (unknown) (unknown) with request to (units (unknown) date) flex hips, but per unknown) nursing he has been frequently getting up to Result panel 15 (unknown) (no (unknown) (unknown) (no value) (units [...] unknown) date) unknown) (unknown) (no (unknown) (unknown) [facility] (units (unknown) date) [address] unknown) [place] [address] (unknown) (no (unknown) (unknown) Laboratory (units (unk [...] (unknown) date) unknown) (unknown) (no (unknown) (unknown) [id number] (units (unkn own) date) unknown) (unknown) (no [...] (unknown) (unknown) : 1945 (units (unknown) date) Acct:[id number] unknown) (unknown) (no (unknown) (unknown) Date Patient [...] (no (unknown) (unknown) Hct 35.4 L (units (unk nown) date) unknown) (unknown) (no (unknown) (unknown) Hgb 12.6 L (units (unk nown) date) unknown) (unknown) (no (unknown) (unknown) History [...] bathroom (units (unknown) date) on his own. [place] unknown) soft, compressible, nontender and without (unknown) (no [...] (units (unknown) date) patient will need unknown) residential for physical rehabilitation. (unknown) (no (unknown) (unknown) my guts are being (units (unknown) date) ripped out.' He is unknown) unable to be more specific than this. [...] not use unknown) (unknown) (no (unknown) (unknown) to evaluate and (units (unknown) date) treat for possible unknown) ETOH withdrawal. Even with more stable (unknown) (no (unknown) (unknown) well as possible (units (unknown) date) ETOH withdrawal. unknown) (unknown) (no (unknown) (unknown) with request to (units (unknown) date) flex hips, but per unknown) nursing he has been frequently getting up to Result panel 16 (unknown) (no date) (unknown) (unknown) 1.4 mmol/L (unkn own) Result panel 17 (unknown) (no date) (unknown) (unknown) > 60 [...] (unknown) 90 IU/L (unkn own) Result panel 18 (unknown) (no date) (unknown) (unknown) 21 (units [...] (unknown) 87 % (unkn own) Result panel 19 (unknown) (no date) (unknown) (unknown) 0.6 % [...] (unknown) 92.8 fL (unkn own) Result panel 20 (unknown) (no (unknown) (unknown) (no value) (units (unk nown) date) unknown) (unknown) (no (unknown) (unknown) [address] [place] [address] (units (unknown) date) unknown) (unknown) (no (unknown) (unknown) [place] (units ( unknown) date) [address] unknown) (unknown) (no (unknown) (unknown) CT Scan Report (units (unknown) date) unknown) (unknown) (no (unknown) (unknown) [facility] (units (unknown) date) unknown) (unknown) (no (unknown) [...] (unknown) (no (unknown) (unknown) Brain: No (units (unkn own) date) intracranial unknown) bleeds or masses. There is cerebral volume loss for (unknown) (no (unknown) (unknown) COMPARISON: (units (un known) date) [facility], unknown) CT, CT HEAD/BRAIN WO CON, 12/07/2021, 20:47. (unknown) (no (unknown) (unknown) CSF spaces: Basal (units (unknown) date) cisterns are unknown) patent. No extra-axial fluid collections. The (unknown) (no (unknown) (unknown) Dictated by: (units (u nknown) date) Rickie Billy M.D. on unknown) 02/05/2022 at 18:13 (unknown) (no (unknown) (unknown) FINDINGS: (units (unkn own) date) unknown) (unknown) (no (unknown) (unknown) Hospital, CT, CT (units (unknown) date) HEAD/BRAIN WO CON, unknown) 04/16/2021, 12:21. (unknown) (no (unknown) (unknown) IMPRESSION: 1. CT (units (unknown) date) head without acute unknown) intracranial abnormalities or acute (unknown) (no (unknown) [...] (unknown) (unknown) Accession Number: (units (unknown) date) [id number] unknown) (unknown) (no (unknown) (unknown) Age/Sex: 76 / M (units (unknown) date) Date of Service: unknown) (unknown) (no (unknown) (unknown) : 1945 (units (unknown) date) Acct:[id number] unknown) (unknown) (no (unknown) (unknown) [place] (units (unkno wn) date) unknown) (unknown) (no (unknown) (unknown) Loc: 224-1 (units ( unknown) date) unknown) (unknown) (no (unknown) (unknown) [id number] (units (unk nown) date) unknown) (unknown) (no (unknown) (unknown) Ordering (units (unkno wn) date) Provider: unknown) Evan Rangel MD (unknown) (no (unknown) (unknown) PROCEDURE: CT (units ( unknown) date) HEAD/BRAIN WO CON unknown) (unknown) (no [...] (units (unkno wn) date) unknown) Result panel 21 (unknown) (no (unknown) (unknown) [...] (unknown) date) unknown) (unknown) (no (unknown) (unknown) [facility] (units (unknown) date) [address] unknown) [place] [address] (unknown) (no (unknown) (unknown) [place]ERK[place], (units (unkno [...] (unknown) date) unknown) (unknown) (no (unknown) (unknown) [phone] (units (unkn own) date) unknown) (unknown) (no [...] (unknown) (unknown) ABG HCO3 32 H (units ( unknown) date) unknown) (unknown) (no [...] (no (unknown) (unknown) ABG pH 7.39 (units (un known) date) unknown) (unknown) (no (unknown) (unknown) ABG pO2 (units (unkno wn) date) unknown) (unknown) (no (unknown) (unknown) ABG pO2 55 L (units (u nknown) date) unknown) (unknown) (no (unknown) (unknown) ALT (units (unkno wn) date) unknown) (unknown) (no (unknown) (unknown) ALT 31 (units (unkno wn) date) unknown) (unknown) (no (unknown) (unknown) ANTIBIOTICS)] (units ( unknown) date) unknown) (unknown) (no (unknown) (unknown) AST (units (unkno wn) date) unknown) (unknown) (no (unknown) (unknown) AST 90 H (units (unkno wn) date) unknown) (unknown) (no (unknown) (unknown) Achalasia (units (unkn own) date) unknown) (unknown) (no (unknown) (unknown) Age/Sex: 76 / M (units (unknown) date) unknown) (unknown) (no (unknown) (unknown) Albumin (units (unkno wn) date) unknown) (unknown) (no (unknown) (unknown) Albumin 3.6 (units (un known) date) unknown) (unknown) (no (unknown) (unknown) Albumin/Globulin [...] (unknown) (no (unknown) (unknown) Baso % (Auto) 0.6 (units (unknown) date) unknown) (unknown) (no (unknown) [...] (no (unknown) (unknown) Calcium 8.1 L (units ( unknown) date) unknown) (unknown) (no (unknown) (unknown) Carbon Dioxide (units (unknown) date) unknown) (unknown) (no (unknown) (unknown) Carbon Dioxide 33 (units (unknown) date) H unknown) (unknown) (no (unknown) (unknown) Cervical spinal (units (unknown) date) stenosis unknown) (unknown) (no (unknown) (unknown) Chief complaint: (units (unknown) date) INPT unknown) (unknown) (no (unknown) (unknown) Chloride (units (unkno wn) date) unknown) (unknown) (no (unknown) (unknown) Chloride 101 (units (u nknown) date) unknown) (unknown) (no (unknown) (unknown) Chronic [...] (unknown) (unknown) : 1945 (units (unknown) date) Acct:[id number] unknown) (unknown) (no (unknown) (unknown) Date Patient [...] (unknown) (no (unknown) (unknown) Globulin 2.8 (units (u nknown) date) unknown) (unknown) (no (unknown) (unknown) Glucose (units (unkno wn) date) unknown) (unknown) (no (unknown) (unknown) Glucose 141 H (units ( unknown) date) unknown) (unknown) (no (unknown) (unknown) H/O arthroscopic (units (unknown) date) knee surgery unknown) (11/14/17) (unknown) (no (unknown) (unknown) HEENT: moist (units (u nknown) date) mucous membranes unknown) (unknown) (no (unknown) (unknown) Hct (units (unkno wn) date) unknown) (unknown) (no (unknown) (unknown) Hct 31.5 L (units (unk nown) date) unknown) (unknown) (no (unknown) (unknown) Hgb (units (unkno wn) date) unknown) (unknown) (no (unknown) (unknown) Hgb 11.1 L (units (unk nown) date) unknown) (unknown) (no (unknown) (unknown) History [...] unknown) (unknown) (no (unknown) (unknown) Inhibitor MUSCLES (units (unknown) date) unknown) (unknown) (no (unknown) (unknown) Ischemic (units (unkno wn) date) cardiomyopathy unknown) (unknown) (no (unknown) (unknown) Labs (units (unkno wn) date) unknown) (unknown) (no (unknown) (unknown) Labs: (units (unkno wn) date) unknown) (unknown) (no (unknown) (unknown) Lactate 1.4 (units (un known) date) unknown) (unknown) (no (unknown) (unknown) Lactate [...] (unknown) (no (unknown) (unknown) MCH 32.7 (units (unkno wn) date) unknown) (unknown) (no (unknown) (unknown) MCHC (units (unkno wn) date) unknown) (unknown) (no (unknown) (unknown) MCHC 35.2 (units (unkn own) date) unknown) (unknown) (no (unknown) (unknown) MCV (units (unkno wn) date) unknown) (unknown) (no (unknown) (unknown) MCV 92.8 (units (unkno wn) date) unknown) (unknown) (no (unknown) (unknown) Medical History (units (unknown) date) (Reviewed 02/05/22 unknown) @ 17:55 by Evan Rangel MD) (unknown) (no (unknown) (unknown) Meds (units (unkno wn) date) unknown) (unknown) (no (unknown) (unknown) Kay # (Auto) (units ( unknown) date) unknown) (unknown) (no (unknown) (unknown) Kay # (Auto) (units ( unknown) date) 1300 H unknown) (unknown) (no (unknown) (unknown) Kay % (Auto) (units ( unknown) date) unknown) (unknown) (no (unknown) (unknown) Kay % (Auto) (units ( unknown) date) 15.8 [...] (no (unknown) (unknown) Plt Count 221 (units ( unknown) date) unknown) (unknown) (no (unknown) (unknown) Potassium (units (unkn own) date) unknown) (unknown) (no (unknown) (unknown) Potassium 3.8 (units ( unknown) date) unknown) (unknown) (no (unknown) (unknown) Prior Living (units (u nknown) date) Arrangements House unknown) (unknown) (no (unknown) (unknown) Provider: (units [...] (no (unknown) (unknown) RBC 3.40 L (units (unk nown) date) unknown) (unknown) (no (unknown) (unknown) RDW (units (unkno wn) date) unknown) (unknown) (no (unknown) (unknown) RDW 13.2 (units (unkno wn) date) unknown) (unknown) (no [...] (unknown) (no (unknown) (unknown) Sodium 137 (units (unk nown) date) unknown) (unknown) (no (unknown) (unknown) [id number] (units (unknown) date) Reductase AdvReac unknown) Mild WEAK Verified 02/03/22 08:04 (unknown) (no (unknown) (unknown) Substance Use (units ( unknown) date) Type does not use unknown) (unknown) (no (unknown) (unknown) Suicidal Ideation (units (unknown) date) Description None unknown) (unknown) (no (unknown) (unknown) Suicide Plan (units [...] unknown) (unknown) (no (unknown) (unknown) Total Protein 6.4 (units (unknown) date) unknown) (unknown) (no (unknown) (unknown) Ventricular (units (un known) date) bigeminy unknown) (unknown) (no (unknown) (unknown) Vital Signs (units (un known) date) unknown) (unknown) (no (unknown) (unknown) WBC (units (unkno wn) date) unknown) (unknown) (no (unknown) (unknown) WBC 8.4 (units (unkno wn) date) unknown) (unknown) (no (unknown) (unknown) [Embedded Image (units (unknown) date) Not Available] unknown) (unknown) (no (unknown) (unknown) [[id number] (units (unknown) date) REDUCTASE unknown) (unknown) (no [...] Severe Paranoia Verified 02/03/22 08:04 Result panel 22 (unknown) (no (unknown) (unknown) [...] (unknown) date) unknown) (unknown) (no (unknown) (unknown) [facility] (units (unknown) date) [address] unknown) [place] [address] (unknown) (no (unknown) (unknown) JERKING, (units (unkno [...] polypharmacy, limit opiates (unknown) (no (unknown) (unknown) [id number] (units (unkn own) date) unknown) (unknown) (no [...] (no (unknown) (unknown) 14 systems (units (unk n) date) reviewed and unknown) negative aside from what is noted in HPI (unknown) (no (unknown) (unknown) 14:35 02/05/22 (units (unknown) date) unknown) (unknown) (no (unknown) (unknown) 15:54 02/05/22 (units (unknown) date) unknown) (unknown) (no (unknown) (unknown) 15:57 (units (unkno wn) date) unknown) (unknown) (no (unknown) (unknown) 2. COPD (units (o wn) date) unknown) (unknown) (no [...] (unknown) (unknown) ABG HCO3 32 H (units ( unknown) date) unknown) (unknown) (no [...] (no (unknown) (unknown) ABG pH 7.39 (units (un known) date) unknown) (unknown) (no (unknown) (unknown) ABG pO2 (units (unkno wn) date) unknown) (unknown) (no (unknown) (unknown) ABG pO2 55 L (units (u nknown) date) unknown) (unknown) (no (unknown) (unknown) ALT (units (unkno wn) date) unknown) (unknown) (no (unknown) (unknown) ALT 31 (units (unkno wn) date) unknown) (unknown) (no (unknown) (unknown) ANTIBIOTICS)] (units ( unknown) date) unknown) (unknown) (no (unknown) (unknown) AST (units (unkno wn) date) unknown) (unknown) (no (unknown) (unknown) AST 90 H (units (unkno wn) date) unknown) (unknown) (no (unknown) (unknown) Achalasia (units (unkn own) date) unknown) (unknown) (no (unknown) (unknown) Age/Sex: 76 / M (units (unknown) date) unknown) (unknown) (no (unknown) (unknown) Albumin (units (unkno wn) date) unknown) (unknown) (no (unknown) (unknown) Albumin 3.6 (units (un known) date) unknown) (unknown) (no (unknown) (unknown) Albumin/Globulin [...] (unknown) (no (unknown) (unknown) Baso % (Auto) 0.6 (units (unknown) date) unknown) (unknown) (no (unknown) [...] (no (unknown) (unknown) Calcium 8.1 L (units ( unknown) date) unknown) (unknown) (no (unknown) (unknown) Carbon Dioxide (units (unknown) date) unknown) (unknown) (no (unknown) (unknown) Carbon Dioxide 33 (units (unknown) date) H unknown) (unknown) (no (unknown) (unknown) Cervical spinal (units (unknown) date) stenosis unknown) (unknown) (no (unknown) (unknown) Chief complaint: (units (unknown) date) INPT unknown) (unknown) (no (unknown) (unknown) Chloride (units (unkno wn) date) unknown) (unknown) (no (unknown) (unknown) Chloride 101 (units (u nknown) date) unknown) (unknown) (no (unknown) (unknown) Chronic [...] (unknown) (unknown) : 1945 (units (unknown) date) Acct:[id number] unknown) (unknown) (no (unknown) (unknown) Date Patient [...] (unknown) (no (unknown) (unknown) Globulin 2.8 (units (u nknown) date) unknown) (unknown) (no (unknown) (unknown) Glucose (units (unkno wn) date) unknown) (unknown) (no (unknown) (unknown) Glucose 141 H (units ( unknown) date) unknown) (unknown) (no (unknown) (unknown) H/O arthroscopic (units (unknown) date) knee surgery unknown) (11/14/17) (unknown) (no (unknown) (unknown) HEENT: moist (units (u nknown) date) mucous membranes unknown) (unknown) (no (unknown) (unknown) Hct (units (unkno wn) date) unknown) (unknown) (no (unknown) (unknown) Hct 31.5 L (units (unk nown) date) unknown) (unknown) (no (unknown) (unknown) He has no specific (units (unknown) date) complaints. He unknown) can't tell me much about why he is here in the (unknown) (no (unknown) (unknown) Hgb (units (unkno wn) date) unknown) (unknown) (no (unknown) (unknown) Hgb 11.1 L (units (unk nown) date) unknown) (unknown) (no (unknown) (unknown) History [...] unknown) (unknown) (no (unknown) (unknown) Inhibitor MUSCLES (units (unknown) date) unknown) (unknown) (no (unknown) (unknown) Ischemic (units (unkno wn) date) cardiomyopathy unknown) (unknown) (no (unknown) (unknown) Labs (units (unkno wn) date) unknown) (unknown) (no (unknown) (unknown) Labs: (units (unkno wn) date) unknown) (unknown) (no (unknown) (unknown) Lactate 1.4 (units (un known) date) unknown) (unknown) (no (unknown) (unknown) Lactate [...] (unknown) (no (unknown) (unknown) MCH 32.7 (units (unkno wn) date) unknown) (unknown) (no (unknown) (unknown) MCHC (units (unkno wn) date) unknown) (unknown) (no (unknown) (unknown) MCHC 35.2 (units (unkn own) date) unknown) (unknown) (no (unknown) (unknown) MCV (units (unkno wn) date) unknown) (unknown) (no (unknown) (unknown) MCV 92.8 (units (unkno wn) date) unknown) (unknown) (no (unknown) (unknown) MIPS - Admit (units (u nknown) date) unknown) (unknown) (no (unknown) (unknown) Medical History (units (unknown) date) (Reviewed 02/05/22 unknown) @ 17:55 by Evan Rangel MD) (unknown) (no (unknown) (unknown) Meds (units (unkno wn) date) unknown) (unknown) (no (unknown) (unknown) Kay # (Auto) (units ( unknown) date) unknown) (unknown) (no (unknown) (unknown) Kay # (Auto) (units ( unknown) date) 1300 H unknown) (unknown) (no (unknown) (unknown) Kay % (Auto) (units ( unknown) date) unknown) (unknown) (no (unknown) (unknown) Kay % (Auto) (units ( unknown) date) 15.8 [...] (no (unknown) (unknown) Plt Count 221 (units ( unknown) date) unknown) (unknown) (no (unknown) (unknown) Potassium (units (unkn own) date) unknown) (unknown) (no (unknown) (unknown) Potassium 3.8 (units ( unknown) date) unknown) (unknown) (no (unknown) (unknown) Prior Living (units (u nknown) date) Arrangements House unknown) (unknown) (no (unknown) (unknown) Provider: (units [...] (no (unknown) (unknown) RBC 3.40 L (units (unk nown) date) unknown) (unknown) (no (unknown) (unknown) RDW (units (unkno wn) date) unknown) (unknown) (no (unknown) (unknown) RDW 13.2 (units (unkno wn) date) unknown) (unknown) (no [...] (unknown) (no (unknown) (unknown) Sodium 137 (units (unk nown) date) unknown) (unknown) (no (unknown) (unknown) [id number] (units (unknown) date) Reductase AdvReac unknown) Mild WEAK Verified 02/03/22 08:04 (unknown) (no (unknown) (unknown) Substance Use (units ( unknown) date) Type does not use unknown) (unknown) (no (unknown) (unknown) Suicidal Ideation (units (unknown) date) Description None unknown) (unknown) (no (unknown) (unknown) Suicide Plan (units [...] unknown) (unknown) (no (unknown) (unknown) Total Protein 6.4 (units (unknown) date) unknown) (unknown) (no (unknown) [...] Not Available] unknown) (unknown) (no (unknown) (unknown) [[id number] (units (unknown) date) REDUCTASE unknown) (unknown) (no [...] Severe Paranoia Verified 02/03/22 08:04 Result panel 23 (unknown) (no (unknown) (unknown) (no value) (units (unk nown) date) unknown) (unknown) (no (unknown) (unknown) (no value) (units (unk nown) date) unknown) (unknown) (no (unknown) (unknown) [address] [place] [address] (units (unknown) date) unknown) (unknown) (no (unknown) (unknown) [place], [place] (units ( unknown) date) [id number] unknown) (unknown) (no (unknown) (unknown) CT Scan Report (units (unknown) date) unknown) (unknown) (no (unknown) (unknown) [facility] (units (unknown) date) unknown) (unknown) (no (unknown) (unknown) Signed (units (unkno wn) date) unknown) (unknown) (no (unknown) (unknown) (no value) (units (unk nown) date) unknown) (unknown) (no (unknown) (unknown) Associated (units (unk nown) date) infection cannot unknown) be excluded. (unknown) (no (unknown) (unknown) 02/05/22 (units (unkno wn) date) unknown) (unknown) (no (unknown) (unknown) 1. Interval (units (un known) date) postsurgical unknown) changes consistent with revision [...] 22:28 (unknown) (no (unknown) (unknown) Biliary ducts: No (units (unknown) date) biliary ductal unknown) dilatation. (unknown) (no (unknown) (unknown) Bladder: (units (unkno wn) date) Unremarkable. unknown) (unknown) (no (unknown) (unknown) Bones: There are (units (unknown) date) postsurgical unknown) changes consistent with interval revision in the (unknown) (no (unknown) (unknown) COMPARISON: (units (un known) date) [facility], unknown) CT, CT LUMBAR SPINE WO [facility], 01/21/2022, 14:03. (unknown) (no (unknown) (unknown) Dictated [...] fatty (unknown) (no (unknown) (unknown) Lung bases: There (units (unknown) date) is bilateral unknown) atelectasis posteriorly in the [...] air. (unknown) (no (unknown) (unknown) Spleen: Normal in (units (unknown) date) size. unknown) (unknown) (no (unknown) (unknown) Stomach and (units (un known) date) Bowel: Stomach, unknown) small bowel loops, and colon are normal in caliber (unknown) (no (unknown) (unknown) TECHNIQUE: (units (unk nown) date) unknown) (unknown) (no (unknown) (unknown) Ventral Wall: No (units (unknown) date) hernia. unknown) (unknown) (no (unknown) (unknown) Vessels: [...] (unknown) (no (unknown) (unknown) excluded. No (units (u nknown) date) definite loculated unknown) abscess collection is identified but (unknown) (no (unknown) (unknown) from patient's (units (unknown) date) surgical hardware. unknown) (unknown) (no (unknown) (unknown) ileus. No (units (unkn own) date) evidence of unknown) obstruction. (unknown) (no [...] the pubic (units (u nknown) date) symphysis. Coronal unknown) and sagittal reformats were performed. For (unknown) (no (unknown) (unknown) without acute (units ( unknown) date) diverticulitis. unknown) There are air-fluid levels throughout the colon (unknown) (no (unknown) (unknown) Accession Number: (units (unknown) date) [id number] unknown) (unknown) (no (unknown) (unknown) Age/Sex: 76 / M (units (unknown) date) Date of Service: unknown) (unknown) (no (unknown) (unknown) : 1945 (units (unknown) date) Acct:[id number] unknown) (unknown) (no (unknown) (unknown) [place] (units (unkno wn) date) unknown) (unknown) (no (unknown) (unknown) Loc: [place] [address] (units ( unknown) date) unknown) (unknown) (no (unknown) (unknown) [id number] (units (unk nown) date) unknown) (unknown) (no (unknown) (unknown) Ordering (units (unkno wn) date) Provider: unknown) Evan Rangel MD (unknown) (no (unknown) (unknown) PROCEDURE: CT (units ( unknown) date) ABDOMEN PELVIS W unknown) CON (unknown) [...] (units (unkno wn) date) unknown) Result panel 24 (unknown) (no date) (unknown) (unknown) 0.6 % [...] (unknown) 92.4 fL (unkn own) Result panel 25 (unknown) (no date) (unknown) (unknown) > 60 [...] (unknown) 98 IU/L (unkn own) Result panel 26 (unknown) (no (unknown) (unknown) (no value) (units (unk nown) date) unknown) (unknown) (no (unknown) (unknown) Date of Service: (units (unknown) date) 02/03/22 unknown) (unknown) (no (unknown) (unknown) (no value) (units (unk nown) date) unknown) (unknown) (no (unknown) (unknown) - (units (unkno wn) date) unknown) (unknown) (no (unknown) (unknown) 02/06/22 07:06 (units (unknown) date) unknown) (unknown) (no (unknown) (unknown) [facility] (units (unknown) date) [address] unknown) [place] [address] (unknown) (no (unknown) (unknown) Laboratory (units (unk [...] (unknown) date) unknown) (unknown) (no (unknown) (unknown) [id number] (units (unkn own) date) unknown) (unknown) (no [...] (unknown) (unknown) ABG HCO3 32 H (units ( unknown) date) unknown) (unknown) (no [...] (no (unknown) (unknown) ABG pH 7.39 (units (un known) date) unknown) (unknown) (no (unknown) (unknown) ABG pO2 (units (unkno wn) date) unknown) (unknown) (no (unknown) (unknown) ABG pO2 (units (unkno wn) date) unknown) (unknown) (no (unknown) (unknown) ABG pO2 55 L (units (u nknown) date) unknown) (unknown) (no (unknown) (unknown) ALT 36 (units (unkno wn) date) unknown) (unknown) (no (unknown) (unknown) ALT (units (unkno wn) date) unknown) (unknown) (no (unknown) (unknown) ALT 31 (units (unkno wn) date) unknown) (unknown) (no (unknown) (unknown) AST 98 H (units (unkno wn) date) unknown) (unknown) (no (unknown) (unknown) AST (units (unkno wn) date) unknown) (unknown) (no (unknown) (unknown) AST 90 H (units (unkno wn) date) unknown) (unknown) (no (unknown) (unknown) Achalasia (units (unkn own) date) unknown) (unknown) (no (unknown) (unknown) Actual Procedure (units (unknown) date) Side Surgeon unknown) (unknown) (no (unknown) (unknown) Age/Sex: 76 / M (units (unknown) date) unknown) (unknown) (no (unknown) (unknown) Albumin 3.6 (units (un known) date) unknown) (unknown) (no (unknown) (unknown) Albumin (units (unkno wn) date) unknown) (unknown) (no (unknown) (unknown) Albumin 3.6 (units (un known) date) unknown) (unknown) (no (unknown) (unknown) Albumin/Globulin [...] (unknown) (no (unknown) (unknown) Baso % (Auto) 0.6 (units (unknown) date) unknown) (unknown) (no (unknown) (unknown) Baso % (Auto) 0.6 (units (unknown) date) unknown) (unknown) (no (unknown) (unknown) Blood Pressure (units (unknown) date) 118/67 153/75 H unknown) (unknown) (no (unknown) (unknown) COPD (chronic (units ( unknown) date) obstructive unknown) pulmonary disease) (unknown) (no (unknown) (unknown) Calcium 8.3 L (units ( unknown) date) unknown) (unknown) (no (unknown) (unknown) Calcium (units (unkno wn) date) unknown) (unknown) (no (unknown) (unknown) Calcium 8.1 L (units ( unknown) date) unknown) (unknown) (no (unknown) (unknown) Carbon Dioxide 33 (units (unknown) date) H unknown) (unknown) (no (unknown) (unknown) Carbon Dioxide (units (unknown) date) unknown) (unknown) (no (unknown) (unknown) Carbon Dioxide 33 (units (unknown) date) H unknown) (unknown) (no (unknown) (unknown) Cervical spinal (units (unknown) date) stenosis unknown) (unknown) (no (unknown) (unknown) Chloride 100 (units (u nknown) date) unknown) (unknown) (no (unknown) (unknown) Chloride (units (unkno wn) date) unknown) (unknown) (no (unknown) (unknown) Chloride 101 (units (u nknown) date) unknown) (unknown) (no (unknown) (unknown) Chronic [...] (unknown) (unknown) : 1945 (units (unknown) date) Acct:[id number] unknown) (unknown) (no (unknown) (unknown) Date Patient [...] date) 60 unknown) (unknown) (no (unknown) (unknown) Estimated [...] (unknown) (no (unknown) (unknown) Globulin 3.0 (units (u nknown) date) unknown) (unknown) (no (unknown) (unknown) Globulin (units (unkno wn) date) unknown) (unknown) (no (unknown) (unknown) Globulin 2.8 (units (u nknown) date) unknown) (unknown) (no (unknown) (unknown) Glucose 117 H (units ( unknown) date) unknown) (unknown) (no (unknown) (unknown) Glucose (units (unkno wn) date) unknown) (unknown) (no (unknown) (unknown) Glucose 141 H (units ( unknown) date) unknown) (unknown) (no (unknown) (unknown) H/O arthroscopic (units (unknown) date) knee surgery unknown) (11/14/17) (unknown) (no (unknown) (unknown) Hct (units (unkno wn) date) unknown) (unknown) (no (unknown) (unknown) Hct 30.2 L (units (unk nown) date) unknown) (unknown) (no (unknown) (unknown) Hct 31.5 L (units (unk nown) date) unknown) (unknown) (no (unknown) (unknown) Hgb (units (unkno wn) date) unknown) (unknown) (no (unknown) (unknown) Hgb 10.7 L (units (unk nown) date) unknown) (unknown) (no (unknown) (unknown) Hgb 11.1 L (units (unk nown) date) unknown) (unknown) (no (unknown) (unknown) History [...] (unknown) (no (unknown) (unknown) Lactate 1.4 (units (un known) date) unknown) (unknown) (no (unknown) (unknown) Lactate 0.8 (units (un known) date) unknown) (unknown) (no (unknown) (unknown) Lymph [...] (unknown) (no (unknown) (unknown) MCH 32.8 (units (unkno wn) date) unknown) (unknown) (no (unknown) (unknown) MCH 32.7 (units (unkno wn) date) unknown) (unknown) (no (unknown) (unknown) MCHC (units (unkno wn) date) unknown) (unknown) (no (unknown) (unknown) MCHC 35.5 (units (unkn own) date) unknown) (unknown) (no (unknown) (unknown) MCHC 35.2 (units (unkn own) date) unknown) (unknown) (no (unknown) (unknown) MCV (units (unkno wn) date) unknown) (unknown) (no (unknown) (unknown) MCV 92.4 (units (unkno wn) date) unknown) (unknown) (no (unknown) (unknown) MCV 92.8 (units (unkno wn) date) unknown) (unknown) (no (unknown) (unknown) Medical History (units (unknown) date) (Reviewed 02/05/22 unknown) @ 17:55 by Evan Rangel MD) (unknown) (no (unknown) (unknown) Kay # (Auto) (units ( unknown) date) unknown) (unknown) (no (unknown) (unknown) Kay # (Auto) (units ( unknown) date) 1100 H unknown) (unknown) (no (unknown) (unknown) Kay # (Auto) (units ( unknown) date) 1300 H unknown) (unknown) (no (unknown) (unknown) Kay % (Auto) (units ( unknown) date) unknown) (unknown) (no (unknown) (unknown) Kay % (Auto) (units ( unknown) date) 14.2 H unknown) (unknown) (no (unknown) (unknown) Kay % (Auto) (units ( unknown) date) 15.8 [...] (no (unknown) (unknown) Plt Count 230 (units ( unknown) date) unknown) (unknown) (no (unknown) (unknown) Plt Count 221 (units ( unknown) date) unknown) (unknown) (no (unknown) (unknown) Postoperative (units ( unknown) date) unknown) (unknown) (no (unknown) (unknown) Potassium 4.0 (units ( unknown) date) unknown) (unknown) (no (unknown) (unknown) Potassium (units (unkn own) date) unknown) (unknown) (no (unknown) (unknown) Potassium 3.8 (units ( unknown) date) unknown) (unknown) (no [...] (no (unknown) (unknown) RBC 3.27 L (units (unk nown) date) unknown) (unknown) (no (unknown) (unknown) RBC 3.40 L (units (unk nown) date) unknown) (unknown) (no (unknown) (unknown) RDW (units (unkno wn) date) unknown) (unknown) (no (unknown) (unknown) RDW 13.0 (units (unkno wn) date) unknown) (unknown) (no (unknown) (unknown) RDW 13.2 (units (unkno wn) date) unknown) (unknown) (no (unknown) (unknown) Refused [...] (unknown) (no (unknown) (unknown) Sodium 137 (units (unk nown) date) unknown) (unknown) (no (unknown) (unknown) Sodium (units (unkno wn) date) unknown) (unknown) (no (unknown) (unknown) Sodium 137 (units (unk nown) date) unknown) (unknown) (no (unknown) (unknown) Subjective [...] unknown) (unknown) (no (unknown) (unknown) Total Protein 6.6 (units (unknown) date) unknown) (unknown) (no (unknown) (unknown) Total Protein (units ( unknown) date) unknown) (unknown) (no (unknown) (unknown) Total Protein 6.4 (units (unknown) date) unknown) (unknown) (no (unknown) (unknown) Ventricular (units (un known) date) bigeminy unknown) (unknown) (no (unknown) (unknown) Vital Signs (units (un known) date) unknown) (unknown) (no (unknown) (unknown) WBC (units (unkno wn) date) unknown) (unknown) (no (unknown) (unknown) WBC 8.0 (units (unkno wn) date) unknown) (unknown) (no [...] not use unknown) (unknown) (no (unknown) (unknown) work with PT (units (u nknown) date) yesterday. unknown) Result panel 27 (unknown) (no (unknown) (unknown) [...] (unknown) date) unknown) (unknown) (no (unknown) (unknown) [facility] (units (unknown) date) [address] unknown) [place] [address] (unknown) (no (unknown) (unknown) Laboratory (units (unk [...] (unknown) date) unknown) (unknown) (no (unknown) (unknown) [id number] (units (unkn own) date) unknown) (unknown) (no [...] (unknown) (unknown) ABG HCO3 32 H (units ( unknown) date) unknown) (unknown) (no [...] (no (unknown) (unknown) ABG pCO2 (units (o ) ) unknown) (unknown) (no (unknown) (unknown) ABG pCO2 (units (o wn) date) unknown) (unknown) (no (unknown) (unknown) ABG pCO2 52.6 H (units (unknown) date) unknown) (unknown) (no (unknown) (unknown) ABG pH (units (o wn) date) unknown) (unknown) (no (unknown) (unknown) ABG pH (units (o wn) date) unknown) (unknown) (no (unknown) (unknown) ABG pH 7.39 (units (un known) date) unknown) (unknown) (no (unknown) (unknown) ABG pO2 (units (o wn) date) unknown) (unknown) (no (unknown) (unknown) ABG pO2 (units (unkno wn) date) unknown) (unknown) (no (unknown) (unknown) ABG pO2 55 L (units (u nknown) date) unknown) (unknown) (no (unknown) (unknown) ALT 36 (units (unkno wn) date) unknown) (unknown) (no (unknown) (unknown) ALT (units (unkno wn) date) unknown) (unknown) (no (unknown) (unknown) ALT 31 (units (unkno wn) date) unknown) (unknown) (no (unknown) (unknown) AST 98 H (units (unkno wn) date) unknown) (unknown) (no (unknown) (unknown) AST (units (unkno wn) date) unknown) (unknown) (no (unknown) (unknown) AST 90 H (units (unkno wn) date) unknown) (unknown) (no (unknown) (unknown) Achalasia (units (unkn own) date) unknown) (unknown) (no (unknown) (unknown) Actual Procedure (units (unknown) date) Side Surgeon unknown) (unknown) (no (unknown) (unknown) Age/Sex: 76 / M (units (unknown) date) unknown) (unknown) (no (unknown) (unknown) Albumin 3.6 (units (un known) date) unknown) (unknown) (no (unknown) (unknown) Albumin (units (unkno wn) date) unknown) (unknown) (no (unknown) (unknown) Albumin 3.6 (units (un known) date) unknown) (unknown) (no (unknown) (unknown) Albumin/Globulin [...] (unknown) (no (unknown) (unknown) Baso % (Auto) 0.6 (units (unknown) date) unknown) (unknown) (no (unknown) (unknown) Baso % (Auto) 0.6 (units (unknown) date) unknown) (unknown) (no (unknown) (unknown) Blood Pressure (units (unknown) date) 118/67 153/75 H unknown) (unknown) (no (unknown) (unknown) COPD (chronic (units ( unknown) date) obstructive unknown) pulmonary disease) (unknown) (no (unknown) (unknown) Calcium 8.3 L (units ( unknown) date) unknown) (unknown) (no (unknown) (unknown) Calcium (units (unkno wn) date) unknown) (unknown) (no (unknown) (unknown) Calcium 8.1 L (units (unknown) date) unknown) (unknown) (no (unknown) (unknown) Carbon Dioxide 33 (units (unknown) date) H unknown) (unknown) (no (unknown) (unknown) Carbon Dioxide (units (unknown) date) unknown) (unknown) (no (unknown) (unknown) Carbon Dioxide 33 (units (unknown) date) H unknown) (unknown) (no (unknown) (unknown) Cervical spinal (units (unknown) date) stenosis unknown) (unknown) (no (unknown) (unknown) Chloride 100 (units (u nknown) date) unknown) (unknown) (no (unknown) (unknown) Chloride (units (unkno wn) date) unknown) (unknown) (no (unknown) (unknown) Chloride 101 (units (u nknown) date) unknown) (unknown) (no (unknown) (unknown) Chronic [...] (unknown) (unknown) : 1945 (units (unknown) date) Acct:[id number] unknown) (unknown) (no (unknown) (unknown) Date Patient [...] date) 60 unknown) (unknown) (no (unknown) (unknown) Estimated [...] (unknown) (no (unknown) (unknown) Globulin 3.0 (units (u nknown) date) unknown) (unknown) (no (unknown) (unknown) Globulin (units (unkno wn) date) unknown) (unknown) (no (unknown) (unknown) Globulin 2.8 (units (u nknown) date) unknown) (unknown) (no (unknown) (unknown) Glucose 117 H (units ( unknown) date) unknown) (unknown) (no (unknown) (unknown) Glucose (units (unkno wn) date) unknown) (unknown) (no (unknown) (unknown) Glucose 141 H (units ( unknown) date) unknown) (unknown) (no (unknown) (unknown) H/O arthroscopic (units (unknown) date) knee surgery unknown) (11/14/17) (unknown) (no (unknown) (unknown) Hct (units (unkno wn) date) unknown) (unknown) (no (unknown) (unknown) Hct 30.2 L (units (unk nown) date) unknown) (unknown) (no (unknown) (unknown) Hct 31.5 L (units (unk nown) date) unknown) (unknown) (no (unknown) (unknown) Hgb (units (unkno wn) date) unknown) (unknown) (no (unknown) (unknown) Hgb 10.7 L (units (unk nown) date) unknown) (unknown) (no (unknown) (unknown) Hgb 11.1 L (units (unk nown) date) unknown) (unknown) (no (unknown) (unknown) History [...] (unknown) (no (unknown) (unknown) Lactate 1.4 (units (un known) date) unknown) (unknown) (no (unknown) (unknown) Lactate 0.8 (units (un known) date) unknown) (unknown) (no (unknown) (unknown) Lymph [...] (unknown) (no (unknown) (unknown) MCH 32.8 (units (unkno wn) date) unknown) (unknown) (no (unknown) (unknown) MCH 32.7 (units (unkno wn) date) unknown) (unknown) (no (unknown) (unknown) MCHC (units (unkno wn) date) unknown) (unknown) (no (unknown) (unknown) MCHC 35.5 (units (unkn own) date) unknown) (unknown) (no (unknown) (unknown) MCHC 35.2 (units (unkn own) date) unknown) (unknown) (no (unknown) (unknown) MCV (units (unkno wn) date) unknown) (unknown) (no (unknown) (unknown) MCV 92.4 (units (unkno wn) date) unknown) (unknown) (no (unknown) (unknown) MCV 92.8 (units (unkno wn) date) unknown) (unknown) (no (unknown) (unknown) Medical History (units (unknown) date) (Reviewed 02/05/22 unknown) @ 17:55 by Evan Rangel MD) (unknown) (no (unknown) (unknown) Kay # (Auto) (units ( unknown) date) unknown) (unknown) (no (unknown) (unknown) Kay # (Auto) (units ( unknown) date) 1100 H unknown) (unknown) (no (unknown) (unknown) Kay # (Auto) (units ( unknown) date) 1300 H unknown) (unknown) (no (unknown) (unknown) Kay % (Auto) (units ( unknown) date) unknown) (unknown) (no (unknown) (unknown) Kay % (Auto) (units ( unknown) date) 14.2 H unknown) (unknown) (no (unknown) (unknown) Kay % (Auto) (units ( unknown) date) 15.8 [...] (no (unknown) (unknown) Plt Count 230 (units ( unknown) date) unknown) (unknown) (no (unknown) (unknown) Plt Count 221 (units ( unknown) date) unknown) (unknown) (no (unknown) (unknown) Postoperative (units ( unknown) date) unknown) (unknown) (no (unknown) (unknown) Postoperative (units ( unknown) date) day: 3 unknown) (unknown) (no (unknown) (unknown) Potassium 4.0 (units ( unknown) date) unknown) (unknown) (no (unknown) (unknown) Potassium (units (unkn own) date) unknown) (unknown) (no (unknown) (unknown) Potassium 3.8 (units ( unknown) date) unknown) (unknown) (no [...] (no (unknown) (unknown) RBC 3.27 L (units (unk nown) date) unknown) (unknown) (no (unknown) (unknown) RBC 3.40 L (units (unk nown) date) unknown) (unknown) (no (unknown) (unknown) RDW (units (unkno wn) date) unknown) (unknown) (no (unknown) (unknown) RDW 13.0 (units (unkno wn) date) unknown) (unknown) (no (unknown) (unknown) RDW 13.2 (units (unkno wn) date) unknown) (unknown) (no (unknown) (unknown) Refused [...] (unknown) (no (unknown) (unknown) Sodium 137 (units (unk nown) date) unknown) (unknown) (no (unknown) (unknown) Sodium (units (unkno wn) date) unknown) (unknown) (no (unknown) (unknown) Sodium 137 (units (unk nown) date) unknown) (unknown) (no (unknown) (unknown) Spoke [...] unknown) (unknown) (no (unknown) (unknown) Total Protein 6.6 (units (unknown) date) unknown) (unknown) (no (unknown) (unknown) Total Protein (units ( unknown) date) unknown) (unknown) (no (unknown) (unknown) Total Protein 6.4 (units (unknown) date) unknown) (unknown) (no (unknown) (unknown) Ventricular (units (un known) date) bigeminy unknown) (unknown) (no (unknown) (unknown) Vital Signs (units (un known) date) unknown) (unknown) (no (unknown) (unknown) WBC (units (unkno wn) date) unknown) (unknown) (no (unknown) (unknown) WBC 8.0 (units (unkno wn) date) unknown) (unknown) (no (unknown) (unknown) WBC 8.4 (units (unkno wn) date) unknown) (unknown) (no (unknown) (unknown) [Embedded Image (units (unknown) date) Not Available] unknown) (unknown) (no (unknown) (unknown) alcohol intake: (units (unknown) date) current unknown) (unknown) (no (unknown) (unknown) both of which (units ( unknown) date) were unremarkable. unknown) Cooperative with exam this morning; /5 (unknown) (no (unknown) (unknown) cleared. (units (unkno [...] not use unknown) (unknown) (no (unknown) (unknown) work with PT (units (u nknown) date) yesterday. unknown) Result panel 28 (unknown) (no (unknown) (unknown) [...] unknown) date) unknown) (unknown) (no (unknown) (unknown) [facility] (units (unknown) date) [address] unknown) [place] [address] (unknown) (no (unknown) (unknown) Laboratory (units (unk [...] (unknown) date) unknown) (unknown) (no (unknown) (unknown) [id number] (units (unkn own) date) unknown) (unknown) (no [...] (unknown) (unknown) ABG HCO3 32 H (units ( unknown) date) unknown) (unknown) (no [...] (no (unknown) (unknown) ABG pH 7.39 (units (un known) date) unknown) (unknown) (no (unknown) (unknown) ABG pO2 (units (unkno wn) date) unknown) (unknown) (no (unknown) (unknown) ABG pO2 (units (unkno wn) date) unknown) (unknown) (no (unknown) (unknown) ABG pO2 55 L (units (u nknown) date) unknown) (unknown) (no (unknown) (unknown) ALT 36 (units (unkno wn) date) unknown) (unknown) (no (unknown) (unknown) ALT (units (unkno wn) date) unknown) (unknown) (no (unknown) (unknown) ALT 31 (units (unkno wn) date) unknown) (unknown) (no (unknown) (unknown) AST 98 H (units (unkno wn) date) unknown) (unknown) (no (unknown) (unknown) AST (units (unkno wn) date) unknown) (unknown) (no (unknown) (unknown) AST 90 H (units (unkno wn) date) unknown) (unknown) (no (unknown) (unknown) Achalasia (units (unkn own) date) unknown) (unknown) (no (unknown) (unknown) Actual Procedure (units (unknown) date) Side Surgeon unknown) (unknown) (no (unknown) (unknown) Age/Sex: 76 / M (units (unknown) date) unknown) (unknown) (no (unknown) (unknown) Albumin 3.6 (units (un known) date) unknown) (unknown) (no (unknown) (unknown) Albumin (units (unkno wn) date) unknown) (unknown) (no (unknown) (unknown) Albumin 3.6 (units (un known) date) unknown) (unknown) (no (unknown) (unknown) Albumin/Globulin [...] (unknown) (no (unknown) (unknown) Baso % (Auto) 0.6 (units (unknown) date) unknown) (unknown) (no (unknown) (unknown) Baso % (Auto) 0.6 (units (unknown) date) unknown) (unknown) (no (unknown) (unknown) Blood Pressure (units (unknown) date) 118/67 153/75 H unknown) (unknown) (no (unknown) (unknown) COPD (chronic (units ( unknown) date) obstructive unknown) pulmonary disease) (unknown) (no (unknown) (unknown) Calcium 8.3 L (units ( unknown) date) unknown) (unknown) (no (unknown) (unknown) Calcium (units (unkno wn) date) unknown) (unknown) (no (unknown) (unknown) Calcium 8.1 L (units ( unknown) date) unknown) (unknown) (no (unknown) (unknown) Carbon Dioxide 33 (units (unknown) date) H unknown) (unknown) (no (unknown) (unknown) Carbon Dioxide (units (unknown) date) unknown) (unknown) (no (unknown) (unknown) Carbon Dioxide 33 (units (unknown) date) H unknown) (unknown) (no (unknown) (unknown) Cervical spinal (units (unknown) date) stenosis unknown) (unknown) (no (unknown) (unknown) Chloride 100 (units (u nknown) date) unknown) (unknown) (no (unknown) (unknown) Chloride (units (unkno wn) date) unknown) (unknown) (no (unknown) (unknown) Chloride 101 (units (u nknown) date) unknown) (unknown) (no (unknown) (unknown) Chronic [...] (unknown) (unknown) : 1945 (units (unknown) date) Acct:[id number] unknown) (unknown) (no (unknown) (unknown) Date Patient [...] date) 60 unknown) (unknown) (no (unknown) (unknown) Estimated [...] (unknown) (no (unknown) (unknown) Globulin 3.0 (units (u nknown) date) unknown) (unknown) (no (unknown) (unknown) Globulin (units (unkno wn) date) unknown) (unknown) (no (unknown) (unknown) Globulin 2.8 (units (u nknown) date) unknown) (unknown) (no (unknown) (unknown) Glucose 117 H (units ( unknown) date) unknown) (unknown) (no (unknown) (unknown) Glucose (units (unkno wn) date) unknown) (unknown) (no (unknown) (unknown) Glucose 141 H (units ( unknown) date) unknown) (unknown) (no (unknown) (unknown) H/O arthroscopic (units (unknown) date) knee surgery unknown) (11/14/17) (unknown) (no (unknown) (unknown) Hct (units (unkno wn) date) unknown) (unknown) (no (unknown) (unknown) Hct 30.2 L (units (unk nown) date) unknown) (unknown) (no (unknown) (unknown) Hct 31.5 L (units (unk nown) date) unknown) (unknown) (no (unknown) (unknown) Hgb (units (unkno wn) date) unknown) (unknown) (no (unknown) (unknown) Hgb 10.7 L (units (unk nown) date) unknown) (unknown) (no (unknown) (unknown) Hgb 11.1 L (units (unk nown) date) unknown) (unknown) (no (unknown) (unknown) History [...] (unknown) (no (unknown) (unknown) Lactate 1.4 (units (un known) date) unknown) (unknown) (no (unknown) (unknown) Lactate 0.8 (units (un known) date) unknown) (unknown) (no (unknown) (unknown) Lymph [...] (unknown) (no (unknown) (unknown) MCH 32.8 (units (unkno wn) date) unknown) (unknown) (no (unknown) (unknown) MCH 32.7 (units (unkno wn) date) unknown) (unknown) (no (unknown) (unknown) MCHC (units (unkno wn) date) unknown) (unknown) (no (unknown) (unknown) MCHC 35.5 (units (unkn own) date) unknown) (unknown) (no (unknown) (unknown) MCHC 35.2 (units (unkn own) date) unknown) (unknown) (no (unknown) (unknown) MCV (units (unkno wn) date) unknown) (unknown) (no (unknown) (unknown) MCV 92.4 (units (unkno wn) date) unknown) (unknown) (no (unknown) (unknown) MCV 92.8 (units (unkno wn) date) unknown) (unknown) (no (unknown) (unknown) Medical History (units (unknown) date) (Reviewed 02/05/22 unknown) @ 17:55 by Evan Rangel MD) (unknown) (no (unknown) (unknown) Kay # (Auto) (units ( unknown) date) unknown) (unknown) (no (unknown) (unknown) Kay # (Auto) (units ( unknown) date) 1100 H unknown) (unknown) (no (unknown) (unknown) Kay # (Auto) (units ( unknown) date) 1300 H unknown) (unknown) (no (unknown) (unknown) Kay % (Auto) (units ( unknown) date) unknown) (unknown) (no (unknown) (unknown) Kay % (Auto) (units ( unknown) date) 14.2 H unknown) (unknown) (no (unknown) (unknown) Kay % (Auto) (units ( unknown) date) 15.8 [...] (no (unknown) (unknown) Plt Count 230 (units ( unknown) date) unknown) (unknown) (no (unknown) (unknown) Plt Count 221 (units ( unknown) date) unknown) (unknown) (no (unknown) (unknown) Postoperative (units ( unknown) date) unknown) (unknown) (no (unknown) (unknown) Postoperative (units ( unknown) date) day: 3 unknown) (unknown) (no (unknown) (unknown) Potassium 4.0 (units ( unknown) date) unknown) (unknown) (no (unknown) (unknown) Potassium (units (unkn own) date) unknown) (unknown) (no (unknown) (unknown) Potassium 3.8 (units ( unknown) date) unknown) (unknown) (no [...] (no (unknown) (unknown) RBC 3.27 L (units (unk nown) date) unknown) (unknown) (no (unknown) (unknown) RBC 3.40 L (units (unk nown) date) unknown) (unknown) (no (unknown) (unknown) RDW (units (unkno wn) date) unknown) (unknown) (no (unknown) (unknown) RDW 13.0 (units (unkno wn) date) unknown) (unknown) (no (unknown) (unknown) RDW 13.2 (units (unkno wn) date) unknown) (unknown) (no (unknown) (unknown) Refused [...] (unknown) (no (unknown) (unknown) Sodium 137 (units (unk nown) date) unknown) (unknown) (no (unknown) (unknown) Sodium (units (unkno wn) date) unknown) (unknown) (no (unknown) (unknown) Sodium 137 (units (unk nown) date) unknown) (unknown) (no (unknown) (unknown) Spoke [...] unknown) (unknown) (no (unknown) (unknown) Total Protein 6.6 (units (unknown) date) unknown) (unknown) (no (unknown) (unknown) Total Protein (units ( unknown) date) unknown) (unknown) (no (unknown) (unknown) Total Protein 6.4 (units (unknown) date) unknown) (unknown) (no (unknown) (unknown) Ventricular (units (un known) date) bigeminy unknown) (unknown) (no (unknown) (unknown) Vital Signs (units (un known) date) unknown) (unknown) (no (unknown) (unknown) WBC (units (unkno wn) date) unknown) (unknown) (no (unknown) (unknown) WBC 8.0 (units (unkno wn) date) unknown) (unknown) (no [...] not use unknown) (unknown) (no (unknown) (unknown) work with PT (units (u nknown) date) yesterday. BPs unknown) appear to be normal. Result panel 29 (unknown) (no date) (unknown) (unknown) 0.2 E.U./dL [...] own) unknown) Result panel 30 (unknown) (no date) (unknown) (unknown) 0-1/HPF (units [...] YELLOW (units (unkn own) unknown) Result panel 31 (unknown) (no (unknown) [...] unknown) date) unknown) (unknown) (no (unknown) (unknown) [facility] (units (unknown) date) [address] unknown) [place] [address] (unknown) (no (unknown) (unknown) Laboratory (units (unk [...] and recent surgery (unknown) (no (unknown) (unknown) [id number] (units (unkn own) date) unknown) (unknown) (no [...] (unknown) (unknown) ABG HCO3 32 H (units ( unknown) date) unknown) (unknown) (no [...] (no (unknown) (unknown) ABG pH 7.39 (units (un known) date) unknown) (unknown) (no (unknown) (unknown) ABG pO2 (units (unkno wn) date) unknown) (unknown) (no (unknown) (unknown) ABG pO2 55 L (units (u nknown) date) unknown) (unknown) (no (unknown) (unknown) ALT (units (unkno wn) date) unknown) (unknown) (no (unknown) (unknown) ALT 36 (units (unkno wn) date) unknown) (unknown) (no (unknown) (unknown) AST (units (unkno wn) date) unknown) (unknown) (no (unknown) (unknown) AST 98 H (units (unkno wn) date) unknown) (unknown) (no (unknown) (unknown) Achalasia (units (unkn own) date) unknown) (unknown) (no (unknown) (unknown) Age/Sex: 76 / M (units (unknown) date) unknown) (unknown) (no (unknown) (unknown) Albumin (units (unkno wn) date) unknown) (unknown) (no (unknown) (unknown) Albumin 3.6 (units (un known) date) unknown) (unknown) (no (unknown) (unknown) Albumin/Globulin [...] Baso # (Auto) 100 (units (unknown) date) 100 unknown) (unknown) (no (unknown) (unknown) Baso % (Auto) (units ( unknown) date) unknown) (unknown) (no (unknown) (unknown) Baso % (Auto) 0.6 (units (unknown) date) 0.6 unknown) (unknown) (no (unknown) (unknown) [...] (no (unknown) (unknown) Calcium 8.3 L (units ( unknown) date) unknown) (unknown) (no (unknown) (unknown) Carbon Dioxide (units (unknown) date) unknown) (unknown) (no (unknown) (unknown) Carbon Dioxide 33 (units (unknown) date) H unknown) (unknown) (no (unknown) (unknown) Cervical spinal (units (unknown) date) stenosis unknown) (unknown) (no (unknown) (unknown) Chloride (units (unkno wn) date) unknown) (unknown) (no (unknown) (unknown) Chloride 100 (units (u nknown) date) unknown) (unknown) (no (unknown) (unknown) Chronic [...] (unknown) (unknown) : 1945 (units (unknown) date) Acct:[id number] unknown) (unknown) (no (unknown) (unknown) Date Patient [...] (unknown) (no (unknown) (unknown) Globulin 3.0 (units (u nknown) date) unknown) (unknown) (no (unknown) (unknown) Glucose [...] (unknown) (no (unknown) (unknown) Hct 31.5 L 30.2 L (units (unknown) date) unknown) (unknown) (no (unknown) (unknown) Hgb (units (unkno wn) date) unknown) (unknown) (no (unknown) (unknown) Hgb 11.1 L 10.7 L (units (unknown) date) unknown) (unknown) (no [...] (unknown) (no (unknown) (unknown) Lactate 0.8 (units (un known) date) unknown) (unknown) (no (unknown) (unknown) Lymph [...] (no (unknown) (unknown) MCH 32.7 32.8 (units ( unknown) date) unknown) (unknown) (no (unknown) (unknown) MCHC (units (unkno wn) date) unknown) (unknown) (no (unknown) (unknown) MCHC 35.2 35.5 (units (unknown) date) unknown) (unknown) (no (unknown) (unknown) MCV (units (unkno wn) date) unknown) (unknown) (no (unknown) (unknown) MCV 92.8 92.4 (units ( unknown) date) unknown) (unknown) (no (unknown) (unknown) Medical History (units (unknown) date) (Reviewed 02/05/22 unknown) @ 17:55 by Evan Rangel MD) (unknown) (no (unknown) (unknown) Kay # (Auto) (units ( unknown) date) unknown) (unknown) (no (unknown) (unknown) Kay # (Auto) (units ( unknown) date) 1300 H 1100 H unknown) (unknown) (no (unknown) (unknown) Kay % (Auto) (units ( unknown) date) unknown) (unknown) (no (unknown) (unknown) Kay % (Auto) (units ( unknown) date) 15.8 [...] (unknown) (no (unknown) (unknown) Plt Count 221 230 (units (unknown) date) unknown) (unknown) (no (unknown) (unknown) Potassium (units (unkn own) date) unknown) (unknown) (no (unknown) (unknown) Potassium 4.0 (units ( unknown) date) unknown) (unknown) (no (unknown) (unknown) Provider: [...] (unknown) (no (unknown) (unknown) RBC 3.40 L 3.27 L (units (unknown) date) unknown) (unknown) (no (unknown) (unknown) RDW (units (unkno wn) date) unknown) (unknown) (no (unknown) (unknown) RDW 13.2 13.0 (units ( unknown) date) unknown) (unknown) (no [...] (unknown) (no (unknown) (unknown) Sodium 137 (units (unk nown) date) unknown) (unknown) (no (unknown) (unknown) Subjective [...] unknown) (unknown) (no (unknown) (unknown) Total Protein 6.6 (units (unknown) date) unknown) (unknown) (no (unknown) (unknown) Ur Culture (units (unk nown) date) Indicated? unknown) (unknown) (no (unknown) (unknown) Ur Culture (units (unk nown) date) Indicated? Cult unknown) not indicated (unknown) (no (unknown) (unknown) Ur Leukocyte (units (u nknown) date) Esterase unknown) (unknown) (no (unknown) (unknown) Ur Leukocyte (units (u nknown) date) Esterase Negative unknown) (unknown) (no (unknown) (unknown) Ur Specific (units (un known) date) [place] unknown) (unknown) (no (unknown) (unknown) Ur Specific (units (un known) date) [place] 1.010 unknown) (unknown) (no (unknown) (unknown) Urine [...] unknown) (unknown) (no (unknown) (unknown) Urine Protein 2+ (units (unknown) date) H unknown) (unknown) (no [...] unknown) (unknown) (no (unknown) (unknown) Urine WBC 0-1/hpf (units (unknown) date) unknown) (unknown) (no (unknown) (unknown) Urine pH (units (unkno wn) date) unknown) (unknown) (no (unknown) (unknown) Urine pH 6.5 (units (u nknown) date) unknown) (unknown) (no (unknown) (unknown) Ventricular (units (un known) date) bigeminy unknown) (unknown) (no (unknown) (unknown) Vital Signs (units (un known) date) unknown) (unknown) (no (unknown) (unknown) WBC (units (unkno wn) date) unknown) (unknown) (no (unknown) (unknown) WBC 8.4 8.0 (units (un known) date) unknown) (unknown) (no [...] not use unknown) (unknown) (no (unknown) (unknown) today; this time (units (unknown) date) is exclusive of unknown) procedural time. Result panel 32 (unknown) (no date) (unknown) (unknown) (no value) (units (un known) unknown) (unknown) (no date) (unknown) (unknown) NO GROWTH (units (unk nown) AFTER 24 unknown) HOURS Result panel 33 (unknown) (no (unknown) (unknown) [...] notified: Yes unknown) (unknown) (no (unknown) (unknown) [facility] (units (unknown) date) [address] unknown) [place] [address] (unknown) (no (unknown) (unknown) Label Comments: (units [...] (unknown) date) unknown) (unknown) (no (unknown) (unknown) [id number] (units (unkn own) date) unknown) (unknown) (no [...] unknown) fusion (unknown) (no (unknown) (unknown) 7. [place] of bone (units (unknown) date) marrow from iliac unknown) crest through a separate incision (unknown) (no (unknown) (unknown) 02/16/2022 @ 1:00 (units (unknown) date) pm at Commercial unknown) [facility] office in [place].) (unknown) (no (unknown) (unknown) 8. Utilization of (units (unknown) date) microsurgical unknown) technique and operating microscope (unknown) (no (unknown) (unknown) 9. Utilization of (units (unknown) date) [employer] robotic unknown) navigation (unknown) (no (unknown) (unknown) Achalasia (units (unkn own) date) unknown) (unknown) (no (unknown) (unknown) Activity: Walk (units (unknown) date) frequently. 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 Keep clean, unknown) dry gauze over incisions. No bathing or [...] (unknown) (no (unknown) (unknown) Oxygen Flow Rate 0 (units (unknown) date) unknown) (unknown) (no (unknown) (unknown) Oxygen Flow Rate 0 (units (unknown) date) unknown) (unknown) (no (unknown) (unknown) PFSH (units [...] (no (unknown) (unknown) patch. He was (units ( unknown) date) sitting up in a unknown) chair, [...] type: does not use unknown) Result panel 34 (unknown) (no (unknown) (unknown) (no value) (units (unk nown) date) unknown) (unknown) (no (unknown) (unknown) Date of Service: (units (unknown) date) 02/03/22 unknown) (unknown) (no (unknown) (unknown) (no value) (units (unk nown) date) unknown) (unknown) (no (unknown) (unknown) - (units (unkno wn) date) unknown) (unknown) (no (unknown) (unknown) 02/06/22 07:06 (units (unknown) date) unknown) (unknown) (no (unknown) (unknown) [facility] (units (unknown) date) [address] unknown) [place] [address] (unknown) (no (unknown) (unknown) Progress Note (units ( unknown) date) unknown) (unknown) (no (unknown) (unknown) (no value) (units (unk nown) date) unknown) (unknown) (no (unknown) (unknown) 02/07/22 (units (unkno wn) date) unknown) (unknown) (no (unknown) (unknown) (past 8 hours): (units (unknown) date) unknown) (unknown) (no (unknown) (unknown) [id number] (units (unkn own) date) unknown) (unknown) (no [...] (unknown) (unknown) : 1945 (units (unknown) date) Acct:[id number] unknown) (unknown) (no (unknown) (unknown) Date Patient [...] not use unknown) (unknown) (no (unknown) (unknown) today; this time (units (unknown) date) is exclusive of unknown) procedural time. Result panel 35 (unknown) (no (unknown) (unknown) (no value) (units (unk nown) date) unknown) (unknown) (no (unknown) (unknown) Date of Service: (units (unknown) date) 02/03/22 unknown) (unknown) (no (unknown) (unknown) (no value) (units (unk nown) date) unknown) (unknown) (no (unknown) (unknown) - (units (unkno wn) date) unknown) (unknown) (no (unknown) (unknown) 02/06/22 07:06 (units (unknown) date) unknown) (unknown) (no (unknown) (unknown) [facility] (units (unknown) date) [address] unknown) [place] [address] (unknown) (no (unknown) (unknown) Progress Note (units ( unknown) date) unknown) (unknown) (no (unknown) (unknown) (no value) (units (unk nown) date) unknown) (unknown) (no (unknown) (unknown) 02/07/22 (units (unkno wn) date) unknown) (unknown) (no (unknown) (unknown) (past 8 hours): (units (unknown) date) unknown) (unknown) (no (unknown) (unknown) [id number] (units (unkn own) date) unknown) (unknown) (no [...] (unknown) (unknown) : 1945 (units (unknown) date) Acct:[id number] unknown) (unknown) (no (unknown) (unknown) Date Patient [...] not use unknown) (unknown) (no (unknown) (unknown) today; this time (units (unknown) date) is exclusive of unknown) procedural time. (unknown) (no (unknown) (unknown) up in a chair (units ( unknown) date) unknown) Result panel 36 (unknown) (no (unknown) (unknown) (no value) (units (unk nown) date) unknown) (unknown) (no (unknown) (unknown) Date of Service: (units (unknown) date) 02/03/22 unknown) (unknown) (no (unknown) (unknown) (no value) (units (unk nown) date) unknown) (unknown) (no (unknown) (unknown) - (units (unkno wn) date) unknown) (unknown) (no (unknown) (unknown) 02/06/22 07:06 (units (unknown) date) unknown) (unknown) (no (unknown) (unknown) [facility] (units (unknown) date) [address] unknown) [place] [address] (unknown) (no (unknown) (unknown) Progress Note (units [...] 400 mg at (unknown) (no (unknown) (unknown) [id number] (units (unkn own) date) unknown) (unknown) (no [...] (unknown) (unknown) : 1945 (units (unknown) date) Acct:[id number] unknown) (unknown) (no (unknown) (unknown) Date Patient [...] not use unknown) (unknown) (no (unknown) (unknown) today; this time (units (unknown) date) is exclusive of unknown) procedural time. (unknown) (no (unknown) (unknown) up in a chair (units ( unknown) date) unknown) (unknown) (no (unknown) (unknown) ventricular (units (un known) date) systolic unknown) function.: No Result panel 37 (unknown) (no (unknown) (unknown) (no value) (units (unk nown) date) unknown) (unknown) (no (unknown) (unknown) Date of Service: (units (unknown) date) 02/03/22 unknown) (unknown) (no (unknown) (unknown) (no value) (units (unk nown) date) unknown) (unknown) (no (unknown) (unknown) - (units (unkno wn) date) unknown) (unknown) (no (unknown) (unknown) 02/06/22 07:06 (units (unknown) date) unknown) (unknown) (no (unknown) (unknown) [facility] (units (unknown) date) [address] unknown) [place] [address] (unknown) (no (unknown) (unknown) Progress Note (units [...] (unknown) (no (unknown) (unknown) * Question (units (k n) date) polypharmacy, unknown) patient was stated to [...] (unknown) (unknown) * labs look (units (unk n) date) reassuring with unknown) normal white count [...] and recent surgery (unknown) (no (unknown) (unknown) [id number] (units (unkn own) date) unknown) (unknown) (no [...] (unknown) (unknown) : 1945 (units (unknown) date) Acct:[id number] unknown) (unknown) (no (unknown) (unknown) Date Patient [...] not use unknown) (unknown) (no (unknown) (unknown) today; this time (units (unknown) date) is exclusive of unknown) procedural time. (unknown) (no (unknown) (unknown) up in a chair (units ( unknown) date) unknown) (unknown) (no (unknown) (unknown) ventricular (units (un known) date) systolic unknown) function.: No Result panel 38 (unknown) (no (unknown) (unknown) [...] unknown) date) unknown) (unknown) (no (unknown) (unknown) [facility] (units (unknown) date) [address] unknown) [place] [address] (unknown) (no (unknown) (unknown) Progress Note (units [...] (no (unknown) (unknown) * Question (units (unk n) date) polypharmacy, unknown) patient was stated to [...] and recent surgery (unknown) (no (unknown) (unknown) [id number] (units (unkn own) date) unknown) (unknown) (no [...] (unknown) (unknown) : 1945 (units (unknown) date) Acct:[id number] unknown) (unknown) (no (unknown) (unknown) Date Patient [...] not use unknown) (unknown) (no (unknown) (unknown) up in a chair (units ( unknown) date) unknown) (unknown) (no (unknown) (unknown) ventricular (units (un known) date) systolic unknown) function.: No Result panel 39 (unknown) (no (unknown) (unknown) [...] unknown) date) unknown) (unknown) (no (unknown) (unknown) [facility] (units (unknown) date) [address] [place] [address] unknown) [place] [address] (unknown) (no (unknown) (unknown) Progress Note (units [...] and recent surgery (unknown) (no (unknown) (unknown) [id number] (units (unkn own) date) unknown) (unknown) (no [...] (unknown) (unknown) : 1945 (units (unknown) date) Acct:[id number] unknown) (unknown) (no (unknown) (unknown) Date Patient [...] not use unknown) (unknown) (no (unknown) (unknown) up in a chair (units ( unknown) date) unknown) (unknown) (no (unknown) (unknown) ventricular (units (un known) date) systolic unknown) function.: No Result panel 40 (unknown) (no (unknown) (unknown) [...] date) Shiga Toxin 2 unknown) Result panel 41 (unknown) (no date) (unknown) (unknown) NO GROWTH (units (unk nown) AFTER 48 unknown) HOURS (unknown) (no date) (unknown) (unknown) (no value) (units (un known) unknown) Result panel 42 (unknown) (no (unknown) (unknown) [...] (unknown) date) unknown) (unknown) (no (unknown) (unknown) [facility] (units (unknown) date) [address] [place] [address] unknown) [place] [address] (unknown) (no (unknown) (unknown) JERKING, (units (unkno [...] date) grams unknown) (unknown) (no (unknown) (unknown) [id number] (units (unkn own) date) unknown) (unknown) (no [...] (unknown) (unknown) : 1945 (units (unknown) date) Acct:[id number] unknown) (unknown) (no (unknown) (unknown) Kimmy Gomez, (units (unknown) date) MD [Primary Care unknown) Provider] - (unknown) (no (unknown) (unknown) Departure (units (unkn own) date) unknown) (unknown) (no (unknown) (unknown) Discharge Plan (units (unknown) date) unknown) (unknown) (no (unknown) (unknown) ER Physician: (units ( unknown) date) Bridgett Fletcher unknown) D.OTram (unknown) (no (unknown) (unknown) Exam (units (unkno [...] unknown) (unknown) (no (unknown) (unknown) Inhibitor MUSCLES (units (unknown) date) unknown) (unknown) (no (unknown) [...] (unknown) Pulse Oximetry 97 (units (unknown) date) 02/08/22 08:39 unknown) (unknown) (no (unknown) (unknown) Pulse Oximetry [...] Respiratory Rate (units (unknown) date) 14 02/08/22 08:39 unknown) (unknown) (no (unknown) (unknown) Respiratory Rate [...] DISCHARGED FROM 02/07 (unknown) (no (unknown) (unknown) [facility] (units (unknown) date) Reductase AdvReac unknown) Mild [...] nknown) date) unknown) (unknown) (no (unknown) (unknown) [DNAIGVU-HZC-FSS (units (unknown) date) REDUCTASE unknown) (unknown) (no [...] use unknown) (unknown) (no (unknown) (unknown) tablet 4-6) [...] Severe Paranoia Verified 02/08/22 08:38 Result panel 43 (unknown) (no (unknown) (unknown) (no value) (units (unk nown) date) unknown) (unknown) (no (unknown) (unknown) [address] [place] [address] (units (unknown) date) unknown) (unknown) (no (unknown) (unknown) [place], [place] (units ( unknown) date) [address] unknown) (unknown) (no (unknown) (unknown) [facility] (units (unknown) date) unknown) (unknown) (no (unknown) (unknown) Signed (units (unkno wn) date) unknown) (unknown) (no (unknown) (unknown) XRay Report (units (un known) date) unknown) (unknown) (no (unknown) (unknown) (no value) (units (unk nown) date) unknown) (unknown) (no (unknown) (unknown) 02/08/22 (units (unkno wn) date) unknown) (unknown) (no (unknown) (unknown) Approved by: (units (u nknown) date) dinorah Metcalf) Clifford on 02/08/2022 at 8:42 (unknown) (no (unknown) (unknown) Bones and chest (units (unknown) date) wall: No unknown) suspicious bony lesions. Overlying soft tissues (unknown) (no (unknown) (unknown) COMPARISON: (units (un known) date) [facility], unknown) CR, XR CHEST 1V, 02/04/2022, 18:16. (unknown) (no (unknown) (unknown) Dictated by: (units (u nknown) date) dinorah Metcalf) Clifford on 02/08/2022 at 8:40 (unknown) (no [...] (unknown) (unknown) Accession Number: (units (unknown) date) [id number] unknown) (unknown) (no (unknown) (unknown) Age/Sex: 76 / M (units (unknown) date) Date of Service: unknown) (unknown) (no (unknown) (unknown) : 1945 (units (unknown) date) Acct:[id number] unknown) (unknown) (no (unknown) (unknown) Loc: ED (units (unkno wn) date) unknown) (unknown) (no (unknown) (unknown) [id number] (units (unk nown) date) unknown) (unknown) (no (unknown) (unknown) Ordering (units (unkno wn) date) Provider: unknown) Bridgett Fletcher D.O. (unknown) (no (unknown) (unknown) PROCEDURE: XR (units ( unknown) date) CHEST 1V unknown) (unknown) (no (unknown) (unknown) Patient: (units (unkno wn) date) JackelineRadha Gisele unknown) MR#: (unknown) (no (unknown) (unknown) [place] (units (unkn own) date) unknown) (unknown) (no (unknown) (unknown) Procedure: XR (units ( unknown) date) chest 1V unknown) (unknown) (no (unknown) (unknown) appear (units (unkno wn) date) unknown) Result panel 44 (unknown) (no (unknown) (unknown) [...] (unknown) date) unknown) (unknown) (no (unknown) (unknown) [facility] (units (unknown) date) [address] [place] [address] unknown) [place] [address] (unknown) (no (unknown) (unknown) JERKING, (units (unkno [...] date) grams unknown) (unknown) (no (unknown) (unknown) [id number] (units (unkn own) date) unknown) (unknown) (no [...] (unknown) (unknown) : 1945 (units (unknown) date) Acct:[id number] unknown) (unknown) (no (unknown) (unknown) Kimmy Gomez, [...] unknown) (unknown) (no (unknown) (unknown) Inhibitor MUSCLES (units (unknown) date) unknown) (unknown) (no (unknown) [...] (unknown) Pulse Oximetry 97 (units (unknown) date) 02/08/22 08:39 unknown) (unknown) (no (unknown) (unknown) Pulse Oximetry [...] Respiratory Rate (units (unknown) date) 14 02/08/22 08:39 unknown) (unknown) (no (unknown) (unknown) Respiratory Rate [...] DISCHARGED FROM 02/07 (unknown) (no (unknown) (unknown) Stuklhh-KDQ-JeF (units (unknown) date) Reductase AdvReac unknown) Mild [...] (unknown) date) unknown) (unknown) (no (unknown) (unknown) [[id number]-FME (units (unknown) date) REDUCTASE unknown) (unknown) (no [...] use unknown) (unknown) (no (unknown) (unknown) tablet 4-6) [...] Severe Paranoia Verified 02/08/22 08:38 Result panel 45 (unknown) (no date) (unknown) (unknown) 0 /uL [...] (unknown) 92.8 fL (unkn own) Result panel 46 (unknown) (no (unknown) (unknown) [...] (unknown) date) unknown) (unknown) (no (unknown) (unknown) [facility] (units (unknown) date) [address] [place] [address] unknown) [place] [address] (unknown) (no (unknown) (unknown) JERKING, (units (unkno [...] date) grams unknown) (unknown) (no (unknown) (unknown) [id number] (units (unkn own) date) unknown) (unknown) (no [...] (unknown) (unknown) : 1945 (units (unknown) date) Acct:[id number] unknown) (unknown) (no (unknown) (unknown) Kimmy Gomez, [...] unknown) (unknown) (no (unknown) (unknown) Inhibitor MUSCLES (units (unknown) date) unknown) (unknown) (no (unknown) [...] (unknown) Pulse Oximetry 97 (units (unknown) date) 02/08/22 08:39 unknown) (unknown) (no (unknown) (unknown) Pulse Oximetry [...] Respiratory Rate (units (unknown) date) 14 02/08/22 08:39 unknown) (unknown) (no (unknown) (unknown) Respiratory Rate [...] DISCHARGED FROM 02/07 (unknown) (no (unknown) (unknown) Ayqqpsx-EQA-HqB (units (unknown) date) Reductase AdvReac unknown) Mild [...] (unknown) date) unknown) (unknown) (no (unknown) (unknown) [[id number]-CUQ-KLN (units (unknown) date) REDUCTASE unknown) (unknown) (no [...] use unknown) (unknown) (no (unknown) (unknown) tablet 4-6) (units (un known) date) unknown) (unknown) (no (unknown) (unknown) tablet) (units (unkno wn) date) unknown) (unknown) (no (unknown) (unknown) tablet,extended (units (unknown) date) release 24 hr unknown) (unknown) (no (unknown) (unknown) through XII (units (unk nown) date) grossly intact. unknown) Press Secretary strength equal bilaterally able lift both legs [...] having lumbar fusion he during Result panel 47 (unknown) (no date) (unknown) (unknown) 1.6 mmol/L (unkn own) Result panel 48 (unknown) (no date) (unknown) (unknown) > 60 [...] (unknown) 849 U/L (unkn own) Result panel 49 (unknown) (no date) (unknown) (unknown) Negative (units (unkn own) unknown) Result panel 50 (unknown) (no date) (unknown) (unknown) > 60 [...] (unknown) 849 U/L (unkn own) Result panel 51 (unknown) (no (unknown) (unknown) (no value) (units [...] (unknown) date) unknown) (unknown) (no (unknown) (unknown) [facility] (units (unknown) date) [address] unknown) [place] [address] (unknown) (no (unknown) (unknown) JERKING, (units (unkno [...] date) grams unknown) (unknown) (no (unknown) (unknown) [id number] (units (unkn own) date) unknown) (unknown) (no [...] No (unknown) (no (unknown) (unknown) ALT (<50) IU/L (units (unknown) date) unknown) (unknown) (no (unknown) (unknown) ALT 48 (<50) IU/L (units (unknown) date) unknown) (unknown) (no (unknown) (unknown) ANTIBIOTICS)] (units ( unknown) date) unknown) (unknown) (no (unknown) (unknown) AST (17-59) IU/L (units (unknown) date) unknown) (unknown) (no (unknown) (unknown) AST 76 H (17-59) (units (unknown) date) IU/L unknown) (unknown) (no (unknown) (unknown) Achalasia (units (unkn own) date) unknown) (unknown) (no (unknown) (unknown) Age/Sex: 76 / M (units (unknown) date) unknown) (unknown) (no (unknown) (unknown) Albumin (3.5-5.0) (units (unknown) date) g/dL unknown) (unknown) (no (unknown) (unknown) Albumin 3.9 (units (un known) date) (3.5-5.0) g/dL unknown) (unknown) (no (unknown) [...] (unknown) (no (unknown) (unknown) BUN (9-20) mg/dL (units (unknown) date) unknown) (unknown) (no (unknown) (unknown) BUN 15 (9-20) (units ( unknown) date) mg/dL unknown) (unknown) (no (unknown) (unknown) BUN/Creatinine (units (unknown) date) Ratio (6-22) unknown) (unknown) (no (unknown) (unknown) BUN/Creatinine (units (unknown) date) Ratio 18.8 (6-22) unknown) (unknown) (no (unknown) (unknown) Baso # (Auto) (units ( unknown) date) (0-100) /uL unknown) (unknown) (no (unknown) (unknown) Baso # (Auto) 0 (units (unknown) date) (0-100) /uL unknown) (unknown) (no (unknown) (unknown) Baso % (Auto) (units ( unknown) date) (0-2) % unknown) (unknown) (no (unknown) (unknown) Baso % (Auto) 0.7 (units (unknown) date) (0-2) % unknown) (unknown) [...] unknown) (unknown) (no (unknown) (unknown) CK-MB (CK-2) 2.14 (units (unknown) date) (<2.37) ng/mL unknown) (unknown) (no (unknown) (unknown) CK-MB (CK-2) Rel (units (unknown) date) Index (1.5-5.0) % unknown) (unknown) (no (unknown) (unknown) CK-MB (CK-2) Rel [...] (unknown) (no (unknown) (unknown) Calcium 8.7 (units (un known) date) (8.4-10.2) mg/dL unknown) (unknown) (no (unknown) (unknown) Carbon Dioxide (units (unknown) date) (22-32) mmol/L unknown) (unknown) (no (unknown) (unknown) Carbon Dioxide 31 (units (unknown) date) (22-32) mmol/L unknown) (unknown) (no (unknown) (unknown) Cervical spinal (units (unknown) date) stenosis unknown) (unknown) (no (unknown) (unknown) Chief complaint: (units (unknown) date) Weakness unknown) (unknown) (no (unknown) (unknown) Chloride (98-107) (units (unknown) date) mmol/L unknown) (unknown) (no (unknown) (unknown) Chloride 102 (units (u nknown) date) (98-107) mmol/L unknown) (unknown) (no (unknown) (unknown) 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 (10/22/16) (unknown) (no (unknown) (unknown) Coronary artery (units (unknown) date) disease unknown) (unknown) (no (unknown) (unknown) Course (units (unkno wn) date) unknown) (unknown) (no (unknown) (unknown) Creatinine (units (unk nown) date) (0.66-1.25) mg/dL unknown) (unknown) (no (unknown) (unknown) Creatinine 0.80 (units (unknown) date) (0.66-1.25) mg/dL unknown) (unknown) (no (unknown) (unknown) : 1945 (units (unknown) date) Acct:[id number] unknown) (unknown) (no (unknown) (unknown) Kimmy Gomez, [...] (unknown) GenericComposite[ (units (unknown) date) WBC 5.9 (4.5-11.0) unknown) X10^3/uL ] (unknown) (no (unknown) (unknown) Globulin (units (unkno wn) date) (1.7-4.1) g/dL unknown) (unknown) (no (unknown) (unknown) Globulin 3.2 (units (u nknown) date) (1.7-4.1) g/dL unknown) (unknown) (no (unknown) (unknown) Glucose (80-110) (units (unknown) date) mg/dL unknown) (unknown) (no (unknown) (unknown) Glucose 182 H (units ( unknown) date) (80-110) mg/dL unknown) (unknown) (no (unknown) [...] (no (unknown) (unknown) Hct (41-53) % (units ( unknown) date) unknown) (unknown) (no (unknown) (unknown) Hct 32.7 L (units (unk nown) date) (41-53) % unknown) (unknown) (no (unknown) (unknown) He is having some (units (unknown) date) mild pain now but unknown) seems to be definitely more appropriate he (unknown) (no (unknown) (unknown) Hgb (13.5-17.5) (units (unknown) date) g/dL unknown) (unknown) (no (unknown) (unknown) Hgb 11.3 L (units (unk nown) date) (13.5-17.5) g/dL unknown) [...] unknown) (unknown) (no (unknown) (unknown) Inhibitor MUSCLES (units (unknown) date) unknown) (unknown) (no (unknown) [...] date) unknown) (unknown) (no (unknown) (unknown) Lactate (0.7-2.1) (units (unknown) date) mmol/L unknown) (unknown) (no (unknown) (unknown) Lactate 1.6 (units (un known) date) (0.7-2.1) mmol/L unknown) (unknown) (no (unknown) (unknown) Lactate (Lactic (units (unknown) date) Acid) Stat unknown) (unknown) (no (unknown) (unknown) Lymph # (Auto) (units (unknown) date) (8931-5808) /uL unknown) (unknown) (no (unknown) (unknown) Lymph # (Auto) (units (unknown) date) 700 L (4495-9071) unknown) /uL (unknown) (no (unknown) (unknown) Lymph % (Auto) (units (unknown) date) (25-40) % unknown) (unknown) (no (unknown) (unknown) Lymph % (Auto) (units (unknown) date) 11.7 L (25-40) % unknown) (unknown) (no (unknown) (unknown) MCH (26-34) PG (units (unknown) date) unknown) (unknown) (no (unknown) (unknown) MCH 32.0 (26-34) (units (unknown) date) PG unknown) (unknown) (no (unknown) (unknown) MCHC (30-36) % (units (unknown) date) unknown) (unknown) (no (unknown) (unknown) MCHC 34.5 (30-36) (units (unknown) date) % unknown) (unknown) (no (unknown) (unknown) MCV (80-100) fL (units (unknown) date) unknown) (unknown) (no (unknown) (unknown) MCV 92.8 (units (unkno wn) date) (80-100) fL unknown) (unknown) (no (unknown) (unknown) MDM - Weakness (units (unknown) date) unknown) (unknown) (no (unknown) (unknown) MUSCULOSKELETAL: (units (unknown) date) See HPI unknown) (unknown) (no (unknown) (unknown) Medical History (units (unknown) date) (Reviewed 02/07/22 unknown) @ 11:16 by [facility]) (unknown) (no (unknown) (unknown) Mode of arrival: (units (unknown) date) Ambulatory unknown) (unknown) (no (unknown) (unknown) Kay # (Auto) (units ( unknown) date) (0-900) /uL unknown) (unknown) (no (unknown) (unknown) Kay # (Auto) 800 (units (unknown) date) (0-900) /uL unknown) (unknown) (no (unknown) (unknown) Kay % (Auto) (units ( unknown) date) (3-14) % unknown) (unknown) (no (unknown) (unknown) Kay % (Auto) (units ( unknown) date) 14.4 H (3-14) % unknown) (unknown) (no (unknown) (unknown) [...] Neut # (Auto) (units ( unknown) date) (9449-7852) /uL unknown) (unknown) (no (unknown) (unknown) Neut # (Auto) (units ( unknown) date) 4200 (7977-7228) unknown) /uL (unknown) (no (unknown) (unknown) Neut [...] (unknown) (no (unknown) (unknown) Potassium 3.4 (units ( unknown) date) (3.4-5.1) mmol/L unknown) (unknown) (no (unknown) (unknown) Prescriptions: (units (unknown) date) unknown) (unknown) (no (unknown) (unknown) Procalcitonin (units ( unknown) date) (<0.5) ng/mL unknown) (unknown) (no (unknown) (unknown) Procalcitonin (units ( unknown) date) 0.07 (<0.5) ng/mL unknown) (unknown) (no (unknown) (unknown) Procalcitonin (units ( unknown) date) Stat unknown) (unknown) (no (unknown) (unknown) Pulse Oximetry 97 (units (unknown) date) 02/08/22 08:39 unknown) (unknown) (no (unknown) (unknown) Pulse Oximetry 97 (units (unknown) date) unknown) (unknown) (no (unknown) (unknown) Pulse Rate 117 H (units (unknown) date) 02/08/22 08:39 unknown) (unknown) (no (unknown) (unknown) Pulse Rate 117 H (units (unknown) date) unknown) (unknown) (no (unknown) (unknown) RDW (11.6-14.8) % (units (unknown) date) unknown) (unknown) (no (unknown) (unknown) RDW 12.9 (units (unkno wn) date) (11.6-14.8) % unknown) [...] Respiratory Rate (units (unknown) date) 14 02/08/22 08:39 unknown) (unknown) (no (unknown) (unknown) Respiratory Rate [...] [facility]) (unknown) (no (unknown) (unknown) Sodium (137-145) (units (unknown) date) mmol/L unknown) (unknown) (no (unknown) (unknown) Sodium 140 (units (unk nown) date) (137-145) mmol/L unknown) (unknown) (no (unknown) (unknown) Source: patient (units (unknown) date) unknown) (unknown) (no (unknown) (unknown) Stated complaint: (units (unknown) date) 'NEEDS MORE CARE' unknown) DISCHARGED FROM 02/07 (unknown) (no (unknown) (unknown) Oowcxpb-NFM-LeW (units (unknown) date) Reductase AdvReac unknown) Mild [...] unknown) (unknown) (no (unknown) (unknown) Total Protein 7.1 (units (unknown) date) (6.3-8.2) g/dL unknown) (unknown) (no (unknown) (unknown) Troponin + CK (units ( unknown) date) Cardiac Panel Stat unknown) (unknown) (no (unknown) (unknown) Troponin I (units (unk nown) date) (0.01-0.034) ng/mL unknown) (unknown) (no (unknown) (unknown) Troponin I < (units (u nknown) date) 0.012 (0.01-0.034) unknown) ng/mL (unknown) (no (unknown) (unknown) UA Complete [...] Not Available] unknown) (unknown) (no (unknown) (unknown) [OXPJIOF-SBF-AVE (units (unknown) date) REDUCTASE unknown) (unknown) (no [...] use unknown) (unknown) (no (unknown) (unknown) tablet 4-6) (units (un known) date) unknown) (unknown) (no (unknown) (unknown) tablet) (units (unkno wn) date) unknown) (unknown) (no (unknown) (unknown) tablet,extended (units (unknown) date) release 24 hr unknown) (unknown) (no (unknown) (unknown) through XII (units (unk nown) date) grossly intact. unknown) Press Secretary strength equal bilaterally able lift both legs [...] having lumbar fusion he during Result panel 52 (unknown) (no (unknown) (unknown) (no value) (units [...] (unknown) date) unknown) (unknown) (no (unknown) (unknown) [facility] (units (unknown) date) [address] unknown) [place] [address] (unknown) (no (unknown) (unknown) JERKING, (units (unkno [...] date) grams unknown) (unknown) (no (unknown) (unknown) [id number] (units (unkn own) date) unknown) (unknown) (no [...] No (unknown) (no (unknown) (unknown) ALT (<50) IU/L (units (unknown) date) unknown) (unknown) (no (unknown) (unknown) ALT 48 (<50) IU/L (units (unknown) date) unknown) (unknown) (no (unknown) (unknown) ANTIBIOTICS)] (units ( unknown) date) unknown) (unknown) (no (unknown) (unknown) AST (17-59) IU/L (units (unknown) date) unknown) (unknown) (no (unknown) (unknown) AST 76 H (17-59) (units (unknown) date) IU/L unknown) (unknown) (no (unknown) (unknown) Acetaminophen (units ( unknown) date) (Acetaminophen 325 unknown) Mg Tablet) 650 mg PO NOW ONE (unknown) (no (unknown) (unknown) Achalasia (units (unkn own) date) unknown) (unknown) (no (unknown) (unknown) Age/Sex: 76 / M (units (unknown) date) unknown) (unknown) (no (unknown) (unknown) Albumin (3.5-5.0) (units (unknown) date) g/dL unknown) (unknown) (no (unknown) (unknown) Albumin 3.9 (units (un known) date) (3.5-5.0) g/dL unknown) (unknown) (no (unknown) [...] (unknown) (no (unknown) (unknown) BUN (9-20) mg/dL (units (unknown) date) unknown) (unknown) (no (unknown) (unknown) BUN 15 (9-20) (units ( unknown) date) mg/dL unknown) (unknown) (no (unknown) (unknown) BUN/Creatinine (units (unknown) date) Ratio (6-22) unknown) (unknown) (no (unknown) (unknown) BUN/Creatinine (units (unknown) date) Ratio 18.8 (6-22) unknown) (unknown) (no (unknown) (unknown) Baso # (Auto) (units ( unknown) date) (0-100) /uL unknown) (unknown) (no (unknown) (unknown) Baso # (Auto) 0 (units (unknown) date) (0-100) /uL unknown) (unknown) (no (unknown) (unknown) Baso % (Auto) (units ( unknown) date) (0-2) % unknown) (unknown) (no (unknown) (unknown) Baso % (Auto) 0.7 (units (unknown) date) (0-2) % unknown) (unknown) [...] unknown) (unknown) (no (unknown) (unknown) CK-MB (CK-2) 2.14 (units (unknown) date) (<2.37) ng/mL unknown) (unknown) (no (unknown) (unknown) CK-MB (CK-2) Rel (units (unknown) date) Index (1.5-5.0) % unknown) (unknown) (no (unknown) (unknown) CK-MB (CK-2) Rel [...] (unknown) (no (unknown) (unknown) Calcium 8.7 (units (un known) date) (8.4-10.2) mg/dL unknown) (unknown) (no (unknown) (unknown) Carbon Dioxide (units (unknown) date) (22-32) mmol/L unknown) (unknown) (no (unknown) (unknown) Carbon Dioxide 31 (units (unknown) date) (22-32) mmol/L unknown) (unknown) (no (unknown) (unknown) Cervical spinal (units (unknown) date) stenosis unknown) (unknown) (no (unknown) (unknown) Chief complaint: (units (unknown) date) Weakness unknown) (unknown) (no (unknown) (unknown) Chloride (98-107) (units (unknown) date) mmol/L unknown) (unknown) (no (unknown) (unknown) Chloride 102 (units (u nknown) date) (98-107) mmol/L unknown) (unknown) (no (unknown) (unknown) 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 (10/22/16) (unknown) (no (unknown) (unknown) Consult to CEO - (units (unknown) date) Log Feeder unknown) Stat (unknown) (no (unknown) (unknown) Consult to (units (unk nown) date) Physical Therapy unknown) Evaluate + Treat (unknown) (no (unknown) (unknown) Coronary artery (units (unknown) date) disease unknown) (unknown) (no (unknown) (unknown) Course (units (unkno wn) date) unknown) (unknown) (no (unknown) (unknown) Creatinine (units (unk nown) date) (0.66-1.25) mg/dL unknown) (unknown) (no (unknown) (unknown) Creatinine 0.80 (units (unknown) date) (0.66-1.25) mg/dL unknown) (unknown) (no (unknown) (unknown) : 1945 (units (unknown) date) Acct:[id number] unknown) (unknown) (no (unknown) (unknown) Kimmy Gomez, [...] (unknown) GenericComposite[ (units (unknown) date) WBC 5.9 (4.5-11.0) unknown) X10^3/uL ] (unknown) (no (unknown) (unknown) Globulin (units (unkno wn) date) (1.7-4.1) g/dL unknown) (unknown) (no (unknown) (unknown) Globulin 3.2 (units (u nknown) date) (1.7-4.1) g/dL unknown) (unknown) (no (unknown) (unknown) Glucose (80-110) (units (unknown) date) mg/dL unknown) (unknown) (no (unknown) (unknown) Glucose 182 H (units ( unknown) date) (80-110) mg/dL unknown) (unknown) (no (unknown) [...] (no (unknown) (unknown) Hct (41-53) % (units ( unknown) date) unknown) (unknown) (no (unknown) (unknown) Hct 32.7 L (units (unk nown) date) (41-53) % unknown) (unknown) (no (unknown) (unknown) He is having some (units (unknown) date) mild pain now but unknown) seems to be definitely more appropriate he (unknown) (no (unknown) (unknown) Hgb (13.5-17.5) (units (unknown) date) g/dL unknown) (unknown) (no (unknown) (unknown) Hgb 11.3 L (units (unk nown) date) (13.5-17.5) g/dL unknown) [...] unknown) (unknown) (no (unknown) (unknown) Inhibitor MUSCLES (units (unknown) date) unknown) (unknown) (no (unknown) [...] date) unknown) (unknown) (no (unknown) (unknown) Lactate (0.7-2.1) (units (unknown) date) mmol/L unknown) (unknown) (no (unknown) (unknown) Lactate 1.6 (units (un known) date) (0.7-2.1) mmol/L unknown) (unknown) (no (unknown) (unknown) Lactate (Lactic (units (unknown) date) Acid) Stat unknown) (unknown) (no (unknown) (unknown) Lymph # (Auto) (units (unknown) date) (0590-3436) /uL unknown) (unknown) (no (unknown) (unknown) Lymph # (Auto) (units (unknown) date) 700 L (9040-2793) unknown) /uL (unknown) (no (unknown) (unknown) Lymph % (Auto) (units (unknown) date) (25-40) % unknown) (unknown) (no (unknown) (unknown) Lymph % (Auto) (units (unknown) date) 11.7 L (25-40) % unknown) (unknown) (no (unknown) (unknown) MCH (26-34) PG (units (unknown) date) unknown) (unknown) (no (unknown) (unknown) MCH 32.0 (26-34) (units (unknown) date) PG unknown) (unknown) (no (unknown) (unknown) MCHC (30-36) % (units (unknown) date) unknown) (unknown) (no (unknown) (unknown) MCHC 34.5 (30-36) (units (unknown) date) % unknown) (unknown) (no (unknown) (unknown) MCV (80-100) fL (units (unknown) date) unknown) (unknown) (no (unknown) (unknown) MCV 92.8 (80-100) (units (unknown) date) fL unknown) (unknown) (no (unknown) (unknown) MDM - Weakness (units (unknown) date) unknown) (unknown) (no (unknown) (unknown) MUSCULOSKELETAL: (units (unknown) date) See HPI unknown) (unknown) (no (unknown) (unknown) Medical History (units (unknown) date) (Reviewed 02/07/22 unknown) @ 11:16 by [facility]) (unknown) (no (unknown) (unknown) Mode of arrival: (units (unknown) date) Ambulatory unknown) (unknown) (no (unknown) (unknown) Kay # (Auto) (units ( unknown) date) (0-900) /uL unknown) (unknown) (no (unknown) (unknown) Kay # (Auto) 800 (units (unknown) date) (0-900) /uL unknown) (unknown) (no (unknown) (unknown) Kay % (Auto) (units ( unknown) date) (3-14) % unknown) (unknown) (no (unknown) (unknown) Kay % (Auto) (units ( unknown) date) 14.4 H (3-14) % unknown) (unknown) (no (unknown) (unknown) [...] Neut # (Auto) (units ( unknown) date) (6400-0440) /uL unknown) (unknown) (no (unknown) (unknown) Neut # (Auto) (units ( unknown) date) 4200 (7818-5874) unknown) /uL (unknown) (no (unknown) (unknown) Neut [...] (unknown) (no (unknown) (unknown) Potassium 3.4 (units ( unknown) date) (3.4-5.1) mmol/L unknown) (unknown) (no (unknown) (unknown) Prescriptions: (units (unknown) date) unknown) (unknown) (no (unknown) (unknown) Procalcitonin (units ( unknown) date) (<0.5) ng/mL unknown) (unknown) (no (unknown) (unknown) Procalcitonin (units ( unknown) date) 0.07 (<0.5) ng/mL unknown) (unknown) (no (unknown) (unknown) Procalcitonin (units ( unknown) date) Stat unknown) (unknown) (no (unknown) (unknown) Pulse Oximetry 97 (units (unknown) date) 02/08/22 08:39 unknown) (unknown) (no (unknown) (unknown) Pulse Oximetry 97 (units (unknown) date) unknown) (unknown) (no (unknown) (unknown) Pulse Rate 117 H (units (unknown) date) 02/08/22 08:39 unknown) (unknown) (no (unknown) (unknown) Pulse Rate 117 H (units (unknown) date) unknown) (unknown) (no (unknown) (unknown) RDW (11.6-14.8) % (units (unknown) date) unknown) (unknown) (no (unknown) (unknown) RDW 12.9 (units (unkno wn) date) (11.6-14.8) % unknown) [...] Respiratory Rate (units (unknown) date) 14 02/08/22 08:39 unknown) (unknown) (no (unknown) (unknown) Respiratory Rate [...] [facility]) (unknown) (no (unknown) (unknown) Sodium (137-145) (units (unknown) date) mmol/L unknown) (unknown) (no (unknown) (unknown) Sodium 140 (units (unk nown) date) (137-145) mmol/L unknown) (unknown) (no (unknown) (unknown) Source: patient (units (unknown) date) unknown) (unknown) (no (unknown) (unknown) Stated complaint: (units (unknown) date) 'NEEDS MORE CARE' unknown) DISCHARGED FROM 02/07 (unknown) (no (unknown) (unknown) [id number] (units (unknown) date) Reductase AdvReac unknown) Mild [...] unknown) (unknown) (no (unknown) (unknown) Total Protein 7.1 (units (unknown) date) (6.3-8.2) g/dL unknown) (unknown) (no (unknown) (unknown) Troponin + CK (units ( unknown) date) Cardiac Panel Stat unknown) (unknown) (no (unknown) (unknown) Troponin I (units (unk nown) date) (0.01-0.034) ng/mL unknown) (unknown) (no (unknown) (unknown) Troponin I < (units (u nknown) date) 0.012 (0.01-0.034) unknown) ng/mL (unknown) (no (unknown) (unknown) UA Complete [...] Not Available] unknown) (unknown) (no (unknown) (unknown) [[id number] (units (unknown) date) REDUCTASE unknown) (unknown) (no [...] use unknown) (unknown) (no (unknown) (unknown) tablet 4-6) (units (un known) date) unknown) (unknown) (no (unknown) (unknown) tablet) (units (unkno wn) date) unknown) (unknown) (no (unknown) (unknown) tablet,extended (units (unknown) date) release 24 hr unknown) (unknown) (no (unknown) (unknown) through XII (units (unk nown) date) grossly intact. unknown) Press Secretary strength equal bilaterally able lift both legs [...] having lumbar fusion he during Result panel 53 (unknown) (no (unknown) (unknown) (no value) (units [...] date) Shiga Toxin 2 unknown) Result panel 54 (unknown) (no (unknown) (unknown) (no value) (units (unk nown) date) unknown) (unknown) (no (unknown) (unknown) Radiologist (units (un known) date) Impression: unknown) (unknown) (no (unknown) (unknown) Date of Service: (units (unknown) date) 02/08/22 unknown) (unknown) (no (unknown) (unknown) (no value) (units (unk nown) date) unknown) (unknown) (no (unknown) (unknown) <Electronically (units (unknown) date) signed by Bridgett unknownuRi Fletcher D.O.> (unknown) (no (unknown) (unknown) 'He [...] (unknown) date) unknown) (unknown) (no (unknown) (unknown) [facility] (units (unknown) date) [address] unknown) [place] [address] (unknown) (no (unknown) (unknown) JERKING, (units (unkno [...] unknown) provider in 2-3 days or call [phone] (unknown) (no (unknown) (unknown) *Return to ER if (units (unknown) date) you should have unknown) any new, worsening or concerning symptoms (unknown) (no (unknown) (unknown) *What to do: You (units (unknown) date) were once again unknown) offered opportunity for rehab facility. It (unknown) (no (unknown) (unknown) *You have been (units (unknown) date) diagnosed with unknown) postoperative pain (unknown) (no (unknown) (unknown) [phone] (units (unkn own) date) unknown) (unknown) (no [...] (unknown) (no (unknown) (unknown) 2. Please (units (unkn own) date) understand that we unknown) cannot provide further refills of narcotics, (unknown) (no (unknown) (unknown) 3. While on these (units (unknown) date) medications you unknown) cannot drive or operate heavy machinery. (unknown) (no (unknown) (unknown) 4. You cannot (units ( unknown) date) sign legal unknown) documents or perform any duties such as this. (unknown) (no (unknown) (unknown) 5. As long as (units ( unknown) date) you're taking unknown) opiate pain medications he should also be taking a (unknown) (no (unknown) (unknown) ? (units (unkno wn) date) unknown) (unknown) (no (unknown) (unknown) ABDOMEN: Soft, (units (unknown) date) nontender. unknown) Normoactive bowel sounds all 4 quadrants. No (unknown) (no (unknown) (unknown) ALT (<50) IU/L (units (unknown) date) unknown) (unknown) (no (unknown) (unknown) ALT 48 (<50) IU/L (units (unknown) date) unknown) (unknown) (no (unknown) (unknown) ANTIBIOTICS)] (units ( unknown) date) unknown) (unknown) (no (unknown) (unknown) AST (17-59) IU/L (units (unknown) date) unknown) (unknown) (no (unknown) (unknown) AST 76 H (17-59) (units (unknown) date) IU/L unknown) (unknown) (no (unknown) (unknown) Accession Number: (units (unknown) date) [id number] ?? unknown) (unknown) (no (unknown) (unknown) Acct:[id number] (units (unknown) date) unknown) (unknown) (no (unknown) [...] date) unknown) (unknown) (no (unknown) (unknown) Albumin (3.5-5.0) (units (unknown) date) g/dL unknown) (unknown) (no (unknown) (unknown) Albumin 3.9 (units (un known) date) (3.5-5.0) g/dL unknown) (unknown) (no (unknown) [...] (unknown) (no (unknown) (unknown) BUN (9-20) mg/dL (units (unknown) date) unknown) (unknown) (no (unknown) (unknown) BUN 15 (9-20) (units ( unknown) date) mg/dL unknown) (unknown) (no (unknown) (unknown) BUN/Creatinine (units (unknown) date) Ratio (6-22) unknown) (unknown) (no (unknown) (unknown) BUN/Creatinine (units (unknown) date) Ratio 18.8 (6-22) unknown) (unknown) (no (unknown) (unknown) Baso # (Auto) (units ( unknown) date) (0-100) /uL unknown) (unknown) (no (unknown) (unknown) Baso # (Auto) 0 (units (unknown) date) (0-100) /uL unknown) (unknown) (no (unknown) (unknown) Baso % (Auto) (units ( unknown) date) (0-2) % unknown) (unknown) (no (unknown) (unknown) Baso % (Auto) 0.7 (units (unknown) date) (0-2) % unknown) (unknown) (no (unknown) (unknown) Blood Culture (units ( unknown) date) Stat unknown) (unknown) (no (unknown) (unknown) Blood Pressure (units (unknown) date) 149/71 H 07// unknown) 08:39 (unknown) (no (unknown) (unknown) Blood [...] unknown) (unknown) (no (unknown) (unknown) CK-MB (CK-2) 2.14 (units (unknown) date) (<2.37) ng/mL unknown) (unknown) (no (unknown) (unknown) CK-MB (CK-2) Rel (units (unknown) date) Index (1.5-5.0) % unknown) (unknown) (no (unknown) (unknown) CK-MB (CK-2) Rel (units (unknown) date) Index 0.3 L unknown) (1.5-5.0) % (unknown) (no (unknown) (unknown) COMPARISON:? (units (u nknown) date) [facility], unknown) CR, XR CHEST 1V, 02/04/2022, 18:16. (unknown) (no (unknown) (unknown) CONTROLLED (units (unk nown) date) SUBSTANCE unknown) DISCHARGE (Narcotoic/benzodi azepine/Flexeril/P henergan) (unknown) (no (unknown) (unknown) COPD (chronic (units ( unknown) date) obstructive unknown) pulmonary disease) (unknown) (no (unknown) (unknown) Calcium (units (unkno wn) date) (8.4-10.2) mg/dL unknown) (unknown) (no (unknown) (unknown) Calcium 8.7 (units (un known) date) (8.4-10.2) mg/dL unknown) (unknown) (no (unknown) (unknown) Carbon Dioxide (units (unknown) date) (22-32) mmol/L unknown) (unknown) (no (unknown) (unknown) Carbon Dioxide 31 (units (unknown) date) (22-32) mmol/L unknown) (unknown) (no (unknown) (unknown) Cervical spinal (units (unknown) date) stenosis unknown) (unknown) (no (unknown) (unknown) Chest x-ray: (units (u nknown) date) unknown) (unknown) (no (unknown) (unknown) Chief complaint: (units (unknown) date) Weakness unknown) (unknown) (no (unknown) (unknown) Chloride (98-107) (units (unknown) date) mmol/L unknown) (unknown) (no (unknown) (unknown) Chloride 102 (units (u nknown) date) (98-107) mmol/L unknown) (unknown) (no (unknown) (unknown) 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 (10/22/16) (unknown) (no (unknown) (unknown) Clinical (units (unkno wn) date) Impression: unknown) (unknown) (no (unknown) (unknown) Consult to CEO - (units (unknown) date) Log Feeder unknown) Stat (unknown) (no (unknown) (unknown) Consult to (units (unk nown) date) Physical Therapy unknown) Evaluate + Treat (unknown) (no (unknown) (unknown) Coronary artery (units (unknown) date) disease unknown) (unknown) (no (unknown) (unknown) Course (units (unkno wn) date) unknown) (unknown) (no (unknown) (unknown) Creatinine (units (unk nown) date) (0.66-1.25) mg/dL unknown) (unknown) (no (unknown) (unknown) Creatinine 0.80 (units (unknown) date) (0.66-1.25) mg/dL unknown) (unknown) (no (unknown) (unknown) : 1945 (units (unknown) date) Acct:[id number] unknown) (unknown) (no (unknown) (unknown) : 1945 (units (unknown) date) unknown) (unknown) (no (unknown) (unknown) Kimmy Gomez, (units (unknown) date) [Primary Care unknown) Provider] - (unknown) (no (unknown) (unknown) Date of Service: (units (unknown) date) 02/08/22 unknown) (unknown) (no (unknown) (unknown) Departure (units (unkn own) date) unknown) (unknown) (no (unknown) (unknown) Dictated by: (units (u nknown) date) Ried Martell unknownRui Horton on 02/08/2022 at 8:40 ? ? (unknown) (no (unknown) (unknown) Discharge Plan (units (unknown) date) unknown) (unknown) (no (unknown) (unknown) Discontinued (units (u nknown) date) Medications unknown) (unknown) (no (unknown) (unknown) ECG Data (units (unkno wn) date) unknown) (unknown) (no (unknown) (unknown) ER Physician: (units ( unknown) date) rBidgett Fletcher unknown) D.O. (unknown) (no (unknown) (unknown) [...] (unknown) GenericComposite[ (units (unknown) date) WBC 5.9 (4.5-11.0) unknown) X10^3/uL ] (unknown) (no (unknown) (unknown) Globulin (units (unkno wn) date) (1.7-4.1) g/dL unknown) (unknown) (no (unknown) (unknown) Globulin 3.2 (units (u nknown) date) (1.7-4.1) g/dL unknown) (unknown) (no (unknown) (unknown) Glucose (80-110) (units (unknown) date) mg/dL unknown) (unknown) (no (unknown) (unknown) Glucose 182 H (units ( unknown) date) (80-110) mg/dL unknown) (unknown) (no (unknown) [...] (no (unknown) (unknown) Hct (41-53) % (units ( unknown) date) unknown) (unknown) (no (unknown) (unknown) Hct 32.7 L (units (unk nown) date) (41-53) % unknown) (unknown) (no (unknown) (unknown) He is having some (units (unknown) date) mild pain now but unknown) seems to be definitely more appropriate he (unknown) (no (unknown) (unknown) Hgb (13.5-17.5) (units (unknown) date) g/dL unknown) (unknown) (no (unknown) (unknown) Hgb 11.3 L (units (unk nown) date) (13.5-17.5) g/dL unknown) [...] unknown) (unknown) (no (unknown) (unknown) Inhibitor MUSCLES (units (unknown) date) unknown) (unknown) (no (unknown) [...] date) unknown) (unknown) (no (unknown) (unknown) Lactate (0.7-2.1) (units (unknown) date) mmol/L unknown) (unknown) (no (unknown) (unknown) Lactate 1.6 (units (un known) date) (0.7-2.1) mmol/L unknown) (unknown) (no (unknown) (unknown) Loc: ED (units (unkno wn) date) unknown) (unknown) (no (unknown) (unknown) Lungs and (units (unkn own) date) pleura:? Lungs are unknown) clear.? No pleural effusions or pneumothorax.? (unknown) (no (unknown) (unknown) Lymph # (Auto) (units (unknown) date) (4235-0247) /uL unknown) (unknown) (no (unknown) (unknown) Lymph # (Auto) (units (unknown) date) 700 L (8410-4753) unknown) /uL (unknown) (no (unknown) (unknown) Lymph % (Auto) (units (unknown) date) (25-40) % unknown) (unknown) (no (unknown) (unknown) Lymph % (Auto) (units (unknown) date) 11.7 L (25-40) % unknown) (unknown) (no (unknown) (unknown) MCH (26-34) PG (units (unknown) date) unknown) (unknown) (no (unknown) (unknown) MCH 32.0 (26-34) (units (unknown) date) PG unknown) (unknown) (no (unknown) (unknown) MCHC (30-36) % (units (unknown) date) unknown) (unknown) (no (unknown) (unknown) MCHC 34.5 (30-36) (units (unknown) date) % unknown) (unknown) (no (unknown) (unknown) MCV (80-100) fL (units (unknown) date) unknown) (unknown) (no (unknown) (unknown) MCV 92.8 (80-100) (units (unknown) date) fL unknown) (unknown) (no (unknown) (unknown) MDM - Weakness (units (unknown) date) unknown) (unknown) (no (unknown) (unknown) MDM Narrative (units ( unknown) date) unknown) (unknown) (no (unknown) (unknown) MR#: [id number] (units (unknown) date) unknown) (unknown) (no (unknown) [...] date) Ambulatory unknown) (unknown) (no (unknown) (unknown) Kay # (Auto) (units ( unknown) date) (0-900) /uL unknown) (unknown) (no (unknown) (unknown) Kay # (Auto) 800 (units (unknown) date) (0-900) /uL unknown) (unknown) (no (unknown) (unknown) Kay % (Auto) (units ( unknown) date) (3-14) % unknown) (unknown) (no (unknown) (unknown) Kay % (Auto) (units ( unknown) date) 14.4 H (3-14) % unknown) (unknown) (no (unknown) (unknown) [...] Neut # (Auto) (units ( unknown) date) (6254-0227) /uL unknown) (unknown) (no (unknown) (unknown) Neut # (Auto) (units ( unknown) date) 4200 (7211-9832) unknown) /uL (unknown) (no (unknown) (unknown) Neut % (Auto) (units ( unknown) date) (50-75) % unknown) (unknown) (no (unknown) (unknown) Neut % (Auto) (units ( unknown) date) 71.1 (50-75) % unknown) (unknown) (no (unknown) (unknown) No Action (units (unkn own) date) unknown) (unknown) (no (unknown) (unknown) Normal sinus (units (u nknown) date) rhythm rate 97 DC unknown) interval 172 QRS 90 QTC 482 [...] (unknown) (no (unknown) (unknown) Potassium 3.4 (units ( unknown) date) (3.4-5.1) mmol/L unknown) (unknown) (no (unknown) (unknown) Prescriptions: (units (unknown) date) unknown) (unknown) (no (unknown) (unknown) Procalcitonin (units ( unknown) date) (<0.5) ng/mL unknown) (unknown) (no (unknown) (unknown) Procalcitonin (units ( unknown) date) 0.07 (<0.5) ng/mL unknown) (unknown) (no (unknown) (unknown) Procedure: XR (units ( unknown) date) chest 1V unknown) (unknown) (no (unknown) (unknown) Pulse Oximetry 97 (units (unknown) date) 02/08/22 08:39 unknown) (unknown) (no (unknown) (unknown) Pulse Oximetry 96 (units (unknown) date) unknown) (unknown) (no (unknown) (unknown) Pulse Rate 117 H (units (unknown) date) 02/08/22 08:39 unknown) (unknown) (no (unknown) (unknown) Pulse Rate 12 L (units (unknown) date) unknown) (unknown) (no (unknown) (unknown) RDW (11.6-14.8) % (units (unknown) date) unknown) (unknown) (no (unknown) (unknown) RDW 12.9 (units (unkno wn) date) (11.6-14.8) % unknown) [...] Respiratory Rate (units (unknown) date) 14 02/08/22 08:39 unknown) (unknown) (no (unknown) (unknown) Respiratory Rate [...] [facility]) (unknown) (no (unknown) (unknown) Sodium (137-145) (units (unknown) date) mmol/L unknown) (unknown) (no (unknown) (unknown) Sodium 140 (units (unk nown) date) (137-145) mmol/L unknown) (unknown) (no (unknown) (unknown) Source: patient (units (unknown) date) unknown) (unknown) (no (unknown) (unknown) Stated complaint: (units (unknown) date) 'NEEDS MORE CARE' unknown) DISCHARGED FROM 02/07 (unknown) (no (unknown) (unknown) [id number]-AdO (units (unknown) date) Reductase AdvReac unknown) Mild [...] unknown) (unknown) (no (unknown) (unknown) Total Protein 7.1 (units (unknown) date) (6.3-8.2) g/dL unknown) (unknown) (no (unknown) (unknown) Troponin I (units (unk nown) date) (0.01-0.034) ng/mL unknown) (unknown) (no (unknown) (unknown) Troponin I < (units (u nknown) date) 0.012 (0.01-0.034) unknown) ng/mL (unknown) (no (unknown) (unknown) Ventricular (units [...] Not Available] unknown) (unknown) (no (unknown) (unknown) [[id number] (units (unknown) date) REDUCTASE unknown) (unknown) (no [...] use unknown) (unknown) (no (unknown) (unknown) tablet 4-6) [...] (units (unk nown) date) grossly intact. unknown) Press Secretary strength equal bilaterally able lift both legs [...] date) through your unknown) provider. Result panel 55 (unknown) (no date) (unknown) (unknown) (no value) (units (un known) unknown) (unknown) (no date) (unknown) (unknown) NO GROWTH (units (unk nown) AFTER 72 unknown) HOURS Result panel 56 (unknown) (no date) (unknown) (unknown) (no value) (units (un known) unknown) (unknown) (no date) (unknown) (unknown) NO GROWTH (units (unk nown) AFTER 24 unknown) HOURS Result panel 57 (unknown) (no date) (unknown) (unknown) (no value) (units (un known) unknown) (unknown) (no date) (unknown) (unknown) NO GROWTH (units (unk nown) AFTER 24 unknown) HOURS Result panel 58 (unknown) (no date) (unknown) (unknown) (no value) (units (un known) unknown) (unknown) (no date) (unknown) (unknown) NO GROWTH (units (unk nown) AFTER 4 DAYS unknown) Result panel 59 (unknown) (no date) (unknown) (unknown) NO GROWTH (units (unk nown) AFTER 48 unknown) HOURS (unknown) (no date) (unknown) (unknown) (no value) (units (un known) unknown) Result panel 60 (unknown) (no date) (unknown) (unknown) NO GROWTH (units (unk nown) AFTER 48 unknown) HOURS (unknown) (no date) (unknown) (unknown) (no value) (units (un known) unknown) Result panel 61 (unknown) (no date) (unknown) (unknown) (no value) (units (un known) unknown) (unknown) (no date) (unknown) (unknown) NO GROWTH (units (unk nown) AFTER 5 DAYS unknown) Result panel 62 (unknown) (no date) (unknown) (unknown) (no value) (units (un known) unknown) (unknown) (no date) (unknown) (unknown) NO GROWTH (units (unk nown) AFTER 5 DAYS unknown) Result panel 63 (unknown) (no date) (unknown) (unknown) (no value) (units (un known) unknown) (unknown) (no date) (unknown) (unknown) NO GROWTH (units (unk nown) AFTER 72 unknown) HOURS Result panel 64 (unknown) (no date) (unknown) (unknown) (no value) (units (un known) unknown) (unknown) (no date) (unknown) (unknown) NO GROWTH (units (unk nown) AFTER 72 unknown) HOURS Result panel 65 (unknown) (no date) (unknown) (unknown) (no value) (units (un known) unknown) (unknown) (no date) (unknown) (unknown) NO GROWTH (units (unk nown) AFTER 4 DAYS unknown) Result panel 66 (unknown) (no date) (unknown) (unknown) (no value) (units (un known) unknown) (unknown) (no date) (unknown) (unknown) NO GROWTH (units (unk nown) AFTER 4 DAYS unknown) Result panel 67 (unknown) (no date) (unknown) (unknown) (no value) (units (un known) unknown) (unknown) (no date) (unknown) (unknown) NO GROWTH (units (unk nown) AFTER 5 DAYS unknown) Result panel 68 (unknown) (no date) (unknown) (unknown) (no value) (units (un known) unknown) (unknown) (no date) (unknown) (unknown) NO GROWTH (units (unk nown) AFTER 5 DAYS unknown) Result panel 69 (unknown) (no (unknown) [...] notified: Yes unknown) (unknown) (no (unknown) (unknown) [facility] (units (unknown) date) [address] unknown) [place] [address] (unknown) (no (unknown) (unknown) Label Comments: (units [...] (unknown) date) unknown) (unknown) (no (unknown) (unknown) [id number] (units (unkn own) date) unknown) (unknown) (no (unknown) (unknown) 04:00 02/07/22 (units (unknown) date) unknown) (unknown) (no (unknown) (unknown) 06/29/22 07:21 (units (unknown) date) unknown) (unknown) (no [...] unknown) fusion (unknown) (no (unknown) (unknown) 7. [place] of bone (units (unknown) date) marrow from iliac unknown) crest through a separate incision (unknown) (no (unknown) (unknown) 02/16/2022 @ 1:00 (units (unknown) date) pm at [facility] unknown) [address] office in [place].) (unknown) (no (unknown) (unknown) 8. Utilization of (units (unknown) date) microsurgical unknown) technique and operating microscope (unknown) (no (unknown) (unknown) 9. Utilization of (units (unknown) date) [employer] robotic unknown) navigation (unknown) (no (unknown) (unknown) [place] (units (unkn own) date) unknown) (unknown) (no (unknown) (unknown) Activity: Walk (units (unknown) date) frequently. No deep unknown) bending (more than 90 degrees) or twisting (unknown) (no (unknown) (unknown) Addendum (units (unkno wn) date) Documented By: Austen unknown) Joseph Burkett (unknown) (no (unknown) (unknown) Addendum Signed (units (unknown) date) By: <Electronically unknown) signed by Austen Hawkins (unknown) (no (unknown) [...] known) date) unknown) (unknown) (no (unknown) (unknown) Shipping And Receiving: [place] (units (unknown) date) Beh unknown) (unknown) [...] (unknown) (unknown) : 1945 (units (unknown) date) Acct:[id number] unknown) (unknown) (no (unknown) (unknown) Kimmy Gomez [...] December (units ( unknown) date) shower. Keep clean, unknown) dry gauze over incisions. No bathing or [...] (unknown) (no (unknown) (unknown) Oxygen Flow Rate 0 (units (unknown) date) unknown) (unknown) (no (unknown) (unknown) Oxygen Flow Rate 0 (units (unknown) date) unknown) (unknown) (no (unknown) (unknown) PFSH (units [...] unknown) (unknown) (no (unknown) (unknown) k> 03/04/22 0857 (units (unknown) date) unknown) (unknown) (no (unknown) (unknown) medication they [...] (no (unknown) (unknown) patch. He was (units ( unknown) date) sitting up in a unknown) chair, [...] date description facility (no date) Ex-smoker (finding) [facility] Vital Signs date measurement value units +0000 BMI BMI 28.3 kg/m2 +0000 height_metric [...]
--- NOTE | 2022-04-27 17:54 | ED Physician Documentation ---
History of Present Illness - Stated complaint Stated Complaint: CHEST PX - Chief complaint Chief Complaint: Cardiac - History obtained from History obtained from: Patient, Family - History of Present Illness Timing: Today Pain level max: 3 Pain level now: 2 - Additonal information Additional information: Patient is a 77-year-old male who presents to the emergency department stating he has been coughing for several weeks. He states that today he had mild left- sided chest pain. It lasted for a few seconds. Nothing made it better or worse. Currently is not having any symptoms. He states he just feels tired and fatigued. No fevers. No chills. He is currently on steroids for COPD. The pain was described as sharp, nonradiating. Review of Systems Ten Systems: 10 systems reviewed and negative Constitutional: denies: Fever, Chills Nose: reports: Rhinorrhea / runny nose Respiratory: reports: Cough GI: denies: Abdominal Pain, Nausea, Vomiting, Diarrhea Skin: denies: Rash Musculoskeletal: denies: Neck pain, Back pain Neurologic: denies: Headache PD PAST MEDICAL HISTORY - Past Medical History Cardiovascular: Hypertension, Coronary artery disease, SC, Atrial fibrillation, Murmur, Other Respiratory: Asthma, COPD Neuro: None Endocrine/Autoimmune: None GI: GERD, Hiatal hernia, Diverticulitis : Benign prostate hypertrophy, Nocturia HEENT: Chronic sinusitis, Chronic hearing loss Psych: Depression, Anxiety, Claustrophobia Musculoskeletal: Osteoarthritis, Chronic back pain, Other Derm: Herpes zoster, Other - Past Surgical History Past Surgical History: Yes General: Cholecystectomy, EGD Ortho: Hip replacement, Knee replacement, Arthroscopic surgery, Other Cardiovascular: CABG, Other HEENT: Other - Present Medications Home Medications: Ambulatory Orders Medication Instructions Recorded Confirmed Lorazepam [Ativan] 1 mg PO TID PRN 01/03/17 04/27/22 Levalbuterol Tartrate [Xopenex Hfa] 2 puffs INH Q4H PRN 06/21/17 04/27/22 traZODone [Desyrel] 400 mg PO QPM 06/21/17 04/27/22 Metoprolol Tartrate 50 mg PO DAILY 08/01/17 04/27/22 Acetaminophen/Cod 300/30 [Tylenol 1 each PO Q6H PRN #20 tablet 09/28/19 04/27/22 #3] Furosemide 20 mg PO DAILY PRN 07/13/20 04/27/22 Omeprazole 20 mg PO DAILY 07/13/20 04/27/22 glipiZIDE [Glipizide ER] 2.5 mg PO DAILY 04/27/22 04/27/22 - Allergies Allergies/Adverse Reactions: Allergies Allergy/AdvReac Type Severity Reaction Status Date / Time pantoprazole sodium * Allergy Intermediate Nausea Verified 04/27/22 17:46 [From Protonix] Btmwoqo-BIZ-VpI Reductase Allergy Intermediate Unknown Verified 04/27/22 17:46 Inhibitor [Ucyzubl-Eqb-Cpy Reductase Inhibitor] Sulfa (Sulfonamide Allergy Intermediate Rash Verified 04/27/22 17:46 Antibiotics) latex Allergy Mild Itching Verified 04/27/22 17:46 albuterol AdvReac Severe heart Verified 04/27/22 17:46 palpatation diazepam [From Valium] AdvReac Severe DELIRIUM Verified 04/27/22 17:46 hydrocodone [From [place]] AdvReac Anxiety Verified 04/27/22 17:46 morphine AdvReac Anxiety Verified 04/27/22 17:46 - Social History Does the pt smoke?: No Smoking Status: Never smoker Does the pt drink ETOH?: Yes Does the pt have substance abuse?: No - Immunizations Immunizations are current?: Yes - POLST Patient has POLST: No POLST Status: Full Code PD ED PE NORMAL - Vitals Vital signs reviewed: Yes - General General: Alert and oriented X 3, No acute distress - HEENT HEENT: PERRL, Moist mucous membranes - Neck Neck: Supple, no meningeal sign - Cardiac Cardiac: RRR - Respiratory Respiratory: No respiratory distress, Other (Mild wheezing bilaterally) - Abdomen Abdomen: Soft, Non tender, Non distended - Derm Derm: Warm and dry, No rash - Extremities Extremities: No edema - Neuro Neuro: Alert and oriented X 3 - Psych Psych: Normal mood, Normal affect Results - Vitals Vitals: Vital Signs - 24 hr 04/27/22 04/27/22 04/27/22 17:46 17:51 18:21 Temperature 36.9 C 36.9 C Heart Rate 56 L 56 L 60 Respiratory 16 16 24 Rate Blood Pressure 129/58 L 129/58 L 137/59 H O2 Saturation 95 95 98 04/27/22 04/27/22 04/27/22 18:30 19:00 19:30 Temperature 36.5 C Heart Rate 66 63 88 Respiratory 16 16 24 Rate Blood Pressure 119/58 L 114/99 H 132/83 H O2 Saturation 96 96 97 Oxygen O2 Source [] Room air O2 Source Room air - EKG (time done) 1742 Rate: Rate (enter#) (61) Rhythm: NSR, Other (PAC) Leary: Normal Intervals: Normal NH QRS: Normal Ischemia: Normal ST segments - Labs Labs: Laboratory Tests 04/27/22 04/27/22 04/27/22 18:10 18:10 18:10 WBC 9.6 RBC 4.94 Hgb 14.6 Hct 45.0 MCV 91.1 MCH 29.6 MCHC 32.4 RDW 12.9 Plt Count 278 MPV 9.0 Neut # (Auto) 6.5 Lymph # (Auto) 1.9 Chambers # (Auto) 0.9 Eos # (Auto) 0.2 Baso # (Auto) 0.1 Absolute Nucleated RBC 0.00 Nucleated RBC % 0.0 Sodium 136 Potassium 3.8 Chloride 98 L Carbon Dioxide 28 Anion Gap 10.0 BUN 29 H Creatinine 1.0 Estimated GFR (MDRD) 72 L Glucose 128 H Calcium 8.9 Total Bilirubin 0.5 AST 22 ALT 22 Alkaline Phosphatase 68 Troponin I High Sens 9.5 Total Protein 7.1 Albumin 4.1 Globulin 3.0 Albumin/Globulin Ratio 1.4 Lipase 85 H - Rads (name of study) cxr Radiology: Final report received, EMP read contemporaneously, See rad report PD MEDICAL DECISION MAKING - ED course Complexity details: reviewed results, re-evaluated patient, considered differential, d/w patient ED course: No acute findings on chest x-ray, EKG or laboratory testing. Patient does not want to stay for a second troponin. Symptoms not consistent with acute coronary syndrome. The few seconds of pain occurred several hours prior to arrival. No evidence of pneumonia or indication for antibiotics. Patient does not want to stay for IV fluids, he states he will increase his water intake at home. Patient is well-appearing, nontoxic. Afebrile. No hypoxia. No respiratory distress. Patient counseled regarding signs and symptoms for which I believe and urgent re-evaluation would be necessary. Patient with good understanding of and agreement to plan and is comfortable going home at this time This document was made in part using voice recognition software. While efforts are made to proofread this document, sound alike and grammatical errors may occur. Departure - Departure Disposition: 01 Home, Self Care Clinical Impression: Atypical chest pain Condition: Good Instructions: ED Chest Pain Atypical Unkn Cause Follow-Up: Kimmy Lim MD [Primary Care Provider] - Within 3 Days Comments: Please follow-up with your doctor for further care. Make sure you are drinking plenty of water at home. Return if you worsen. Discharge Date/Time: 04/27/22 20:00
[2022-04-27] MEDS ORDERED: SODIUM CHLORIDE 0.9% 1,000 ML IV STA (18:19)
[2022-04-27 18:50] LABS: BASOPHILS # (AUTO) 0.1 10^3/uL (0.0-0.1); BASOPHILS % (AUTO) 0.5 %; EOSINOPHILS # (AUTO) 0.2 10^3/uL (0.0-0.7); EOSINOPHILS % (AUTO) 2.2 %; HGB - HEMOGLOBIN 14.6 g/dL (14.0-18.0); LYMPHOCYTES # (AUTO) 1.9 10^3/uL (1.5-3.5); LYMPHOCYTES % (AUTO) 19.3 %; MEAN CORPUSCULAR HEMOGLOBIN 29.6 pg (27.0-31.0); MEAN CORPUSCULAR HGB CONC 32.4 g/dL (32.0-36.0); MEAN CORPUSCULAR VOLUME 91.1 fL (80.0-94.0); MONOCYTES # (AUTO) 0.9 10^3/uL (0.0-1.0); MONOCYTES % (AUTO) 9.7 %; NEUTROPHILS # (AUTO) 6.5 10^3/uL (1.5-6.6); NEUTROPHILS % (AUTO) 67.5 %; PLT - PLATELET COUNT 278 10^3/uL (130-450); RED BLOOD COUNT 4.94 10^6/uL (4.70-6.10); RED CELL DISTRIBUTION WIDTH 12.9 % (12.0-15.0); WHITE BLOOD COUNT 9.6 x10^3/uL (4.8-10.8)
--- NOTE | 2022-04-27 18:53 | XRAY Report ---
PROCEDURE: Chest 1 View X-Ray INDICATIONS: Chest Pain TECHNIQUE: One view of the chest was acquired. COMPARISON: Chest radiograph 04/20/2022 FINDINGS: Surgical changes and devices: Sternotomy wires and mediastinal clips again seen. Cervical spinal jasper dware is obscured by patient's head. Lungs and pleura: Mildly low lung lungs bilaterally with bibasilar atelectasis. No definite acute co nsolidation. No pleural effusion or pneumothorax. Mediastinum: Mediastinal contours appear normal. Heart size is normal. Bones and chest wall: No suspicious bony lesions. Overlying soft tissues appear unremarkable. IMPRESSION: Mildly low lung volumes with atelectasis of the lung bases. No definite acute cardiopulmonary abnorma lity. Reviewed by: Emeka Robertson MD on 04/27/2022 6:51 PM PDT Approved by: Emeka Robertson MD on 04/27/2022 6:51 PM PDT Station ID: [id number]
[2022-04-27 19:06] LABS: ALBUMIN 4.1 g/dL (3.2-5.5); ALBUMIN/GLOBULIN RATIO 1.4 (1.0-2.2); BILIRUBIN,TOTAL 0.5 mg/dL (0.2-1.0); CALCIUM 8.9 mg/dL (8.5-10.3); POTASSIUM 3.8 mmol/L (3.5-5.0); TOTAL PROTEIN 7.1 g/dL (6.7-8.2)
[2022-04-27 19:46] VITALS: BP 132/83
== END 2022-04-27 20:00 | disposition home or self-care (01) ==
LOC: ED 17:37
DX: R07.89 Other chest pain (principal)
CPT/HCPCS: 36415; 80053; 83690; 84484; 85025; 93005; 99284

== ENCOUNTER 2022-05-26 12:47 | Emergency (ER) | payer MEDICARE ==
--- OUTSIDE RECORDS SUMMARY | 2022-05-26 12:53 | EXTERNAL MEDICAL SUMMARY RPT | Continuity of Care Document ---
:1945 Author Organization [facility] Address [address] [place] [address] Phone Allergies and Intolerances date description facility type (no date) [id number] Reductase Inhibitor [facility] (unknown) (no date) Sulfa (Sulfonamide Antibiotics) [facility] (no [facility]) buprenorphine [facility] (unknown) (no date) celecoxib [facility] (unknown) (no date) diazepam [facility] (unknown) (no date) fentanyl [facility] (unknown) (no date) hydromorphone [facility] (unknown) (no date) hyoscyamine [facility] (unknown) (no date) latex [facility] (unknown) (no date) morphine [facility] (unknown) (no date) varenicline [facility] (unknown) Encounters No information. Functional Status No information. Immunizations No information. Medications No information. Problems No information. Procedures No information. Results/Labs test date author facility value unit [...] notified: Yes unknown) (unknown) (no (unknown) (unknown) [facility] (units (unknown) date) [address] [place] [address] unknown) [place] [address] (unknown) (no (unknown) (unknown) Label Comments: (units [...] (unknown) date) unknown) (unknown) (no (unknown) (unknown) [id number] (units (unkn own) date) unknown) (unknown) (no [...] unknown) fusion (unknown) (no (unknown) (unknown) 7. [place] of bone (units (unknown) date) marrow from iliac unknown) crest through a separate incision (unknown) (no (unknown) (unknown) 02/16/2022 @ 1:00 (units (unknown) date) pm at [facility] unknown) [facility] office in [place].) (unknown) (no (unknown) (unknown) 8. Utilization of [...] (unknown) date) By: <Electronically unknown) signed by Ausetn Hawkins (unknown) (no (unknown) (unknown) Addendum: Toxic [...] known) date) unknown) (unknown) (no (unknown) (unknown) Tax Assessor: Elizabet (units (unknown) date) Beh unknown) (unknown) [...] (unknown) (unknown) : 1945 (units (unknown) date) Acct:[id number] unknown) (unknown) (no (unknown) (unknown) Kimmy Gomez [...] (no (unknown) (unknown) Patient had (units (unk n) date) previous L4-S1 unknown) lumbar fusion it [...] type: does not use unknown) Result panel 2 (unknown) (no (unknown) (unknown) (no value) (units (unk nown) date) unknown) (unknown) (no (unknown) (unknown) 05/03/22 (units (unkno wn) date) unknown) (unknown) (no (unknown) (unknown) [id number] [address] [place] [address] (units (unknown) date) unknown) (unknown) (no (unknown) (unknown) Accession Number: (units (unknown) date) [id number] unknown) (unknown) (no (unknown) (unknown) Age/Sex: 77 / M (units (unknown) date) Date of Service: unknown) (unknown) (no (unknown) (unknown) [place], [place] (units ( unknown) date) [id number] unknown) (unknown) (no (unknown) (unknown) Approved by: Nayeli (units (unknown) date) Clifford Reynolds on unknown) 05/03/2022 at 12:14 (unknown) (no (unknown) (unknown) Bones and chest (units (unknown) date) wall: No unknown) suspicious bony lesions. Overlying soft tissues (unknown) (no (unknown) (unknown) COMPARISON: (units (un known) date) [facility], unknown) CR, XR CHEST 1V, 02/08/2022, 9:19. (unknown) (no (unknown) (unknown) Cervical (units (unkno wn) date) unknown) (unknown) (no (unknown) (unknown) : 1945 (units (unknown) date) Acct:[id number] unknown) (unknown) (no (unknown) (unknown) Dictated by: Nayeli (units (unknown) date) Clifford Reynolds on unknown) 05/03/2022 at 12:13 (unknown) (no (unknown) (unknown) FINDINGS: (units (unkn own) date) unknown) (unknown) (no (unknown) (unknown) IMPRESSION: No (units (unknown) date) acute unknown) cardiopulmonary findings. (unknown) (no (unknown) (unknown) INDICATIONS: (units (u nknown) date) chest pain unknown) (unknown) (no (unknown) (unknown) [facility] (units (unknown) date) unknown) (unknown) (no (unknown) (unknown) Loc: ED (units (unkno wn) date) unknown) (unknown) (no (unknown) (unknown) Lungs and pleura: (units (unknown) date) Lungs are clear. unknown) No pleural effusions or pneumothorax. (unknown) (no (unknown) (unknown) [id number] (units (unk nown) date) unknown) (unknown) (no (unknown) (unknown) Mediastinum: (units (u nknown) date) Mediastinal unknown) contours appear normal. Heart size is normal. (unknown) (no (unknown) (unknown) Ordering (units (unkno wn) date) Provider: unknown) Bridgett Fletcher D.O. (unknown) (no (unknown) (unknown) PROCEDURE: XR (units ( unknown) date) CHEST 1V unknown) (unknown) (no (unknown) (unknown) Patient: (units (unkno wn) date) Dominic Viveros [place] unknown) MR#: (unknown) (no (unknown) (unknown) Procedure: XR (units ( unknown) date) chest 1V unknown) (unknown) (no (unknown) (unknown) Signed (units (unkno wn) date) unknown) (unknown) (no (unknown) (unknown) Surgical changes (units (unknown) date) and devices: unknown) Patient is status post median sternotomy. (unknown) (no (unknown) (unknown) TECHNIQUE: One (units (unknown) date) view of the chest unknown) was acquired. (unknown) (no (unknown) (unknown) XRay Report (units (un known) date) unknown) (unknown) (no (unknown) (unknown) appear (units (unkno wn) date) unknown) (unknown) (no (unknown) (unknown) fixation hardware (units (unknown) date) is grossly intact. unknown) (unknown) (no (unknown) (unknown) unremarkable. (units ( unknown) date) unknown) Result panel 3 (unknown) (no date) (unknown) (unknown) 1.0 % (unkn own) (unknown) (no date) (unknown) (unknown) 100 /ul (unkn own) (unknown) (no date) (unknown) (unknown) 1100 /ul (unkn own) (unknown) (no date) (unknown) (unknown) 13.3 g/dl (unkn own) (unknown) (no date) (unknown) (unknown) 13.6 % (unkn own) (unknown) (no date) (unknown) (unknown) 16.6 % (unkn own) (unknown) (no date) (unknown) (unknown) 188 x10 3/ul (unkn own) (unknown) (no date) (unknown) (unknown) 200 /ul (unkn own) (unknown) (no date) (unknown) (unknown) 3.4 % (unkn own) (unknown) (no date) (unknown) (unknown) 30.2 pg (unkn own) (unknown) (no date) (unknown) (unknown) 34.6 % (unkn own) (unknown) (no date) (unknown) (unknown) 38.4 % (unkn own) (unknown) (no date) (unknown) (unknown) 4.40 x10 6/ul (unkn own) (unknown) (no date) (unknown) (unknown) 4800 /ul (unkn own) (unknown) (no date) (unknown) (unknown) 6.8 x10 3/ul (unkn own) (unknown) (no date) (unknown) (unknown) 600 /ul (unkn own) (unknown) (no date) (unknown) (unknown) 70.2 % (unkn own) (unknown) (no date) (unknown) (unknown) 8.8 % (unkn own) (unknown) (no date) (unknown) (unknown) 87.3 fl (unkn own) Result panel 4 (unknown) (no date) (unknown) (unknown) > 60 ml/min (unkn own) (unknown) (no date) (unknown) (unknown) > 60 ml/min (unkn own) (unknown) (no date) (unknown) (unknown) 0.3 mg/dl (unkn own) (unknown) (no date) (unknown) (unknown) 0.70 mg/dl (unkn own) (unknown) (no date) (unknown) (unknown) 1.3 (units unknown) (unknown) (unknown) (no date) (unknown) (unknown) 1.9 mg/dl (unkn own) (unknown) (no date) (unknown) (unknown) 102 mmol/l (unkn own) (unknown) (no date) (unknown) (unknown) 103 u/l (unkn own) (unknown) (no date) (unknown) (unknown) 137 mmol/l (unkn own) (unknown) (no date) (unknown) (unknown) 155 mg/dl (unkn own) (unknown) (no date) (unknown) (unknown) 155 mg/dl (unkn own) (unknown) (no date) (unknown) (unknown) 17 mg/dl (unkn own) (unknown) (no date) (unknown) (unknown) 24.3 (units unknown) (unknown) (unknown) (no date) (unknown) (unknown) 25 mmol/l (unkn own) (unknown) (no date) (unknown) (unknown) 26 iu/l (unkn own) (unknown) (no date) (unknown) (unknown) 3.0 g/dl (unkn own) (unknown) (no date) (unknown) (unknown) 3.8 g/dl (unkn own) (unknown) (no date) (unknown) (unknown) 30 iu/l (unkn own) (unknown) (no date) (unknown) (unknown) 4.0 mmol/l (unkn own) (unknown) (no date) (unknown) (unknown) 6.8 g/dl (unkn own) (unknown) (no date) (unknown) (unknown) 73 u/l (unkn own) (unknown) (no date) (unknown) (unknown) 8.8 mg/dl (unkn own) (unknown) (no date) (unknown) (unknown) 95 u/l (unkn own) Result panel 5 (unknown) (no (unknown) (unknown) (no value) (units (unk nown) date) unknown) (unknown) (no (unknown) (unknown) . Biliary system (units (unknown) date) is non dilated. unknown) Pancreas enhances normally. Spleen is (unknown) (no (unknown) (unknown) 05/03/22 (units (unkno wn) date) unknown) (unknown) (no (unknown) (unknown) 1. No acute (units (un known) date) thoracic or unknown) abdominal aortic dissection or aneurysmal dilatation. (unknown) (no (unknown) (unknown) [address] [place] [address] (units (unknown) date) unknown) (unknown) (no (unknown) (unknown) 2. Postoperative (units (unknown) date) changes unknown) redemonstrated at the ascending thoracic aorta. (unknown) (no (unknown) (unknown) 3. No acute (units (un known) date) intra-abdominal unknown) findings. Normal appendix. Diverticulosis. No (unknown) (no (unknown) (unknown) 8:55. (units (unkno wn) date) unknown) (unknown) (no (unknown) (unknown) ABDOMEN: (units (unkno wn) date) unknown) (unknown) (no (unknown) (unknown) AORTA: (units (unkno wn) date) Postoperative unknown) changes are noted within the ascending thoracic aorta. (unknown) (no (unknown) (unknown) Accession Number: (units (unknown) date) [id number] unknown) (unknown) (no (unknown) (unknown) Age/Sex: 77 / M (units (unknown) date) Date of Service: unknown) (unknown) (no (unknown) (unknown) [place], [place] (units ( unknown) date) [id number] unknown) (unknown) (no (unknown) (unknown) Approved by: Nayeli (units (unknown) date) Clifford Reynolds on unknown) 05/03/2022 at 13:46 (unknown) (no (unknown) (unknown) Atheromatous (units (u nknown) date) calcifications are unknown) present throughout the arch. No aneurysmal (unknown) (no (unknown) (unknown) Bilateral (units (unkn own) date) unknown) (unknown) (no (unknown) (unknown) Bones and chest (units (unknown) date) wall: No axillary unknown) adenopathy by size criteria. Thyroid gland (unknown) (no (unknown) (unknown) Bones: No (units (unkn own) date) suspicious bony unknown) lesions. No vertebral body compression fractures. (unknown) (no (unknown) (unknown) CHEST: (units (unkno wn) date) unknown) (unknown) (no (unknown) (unknown) COMPARISON: (units (un known) date) [facility], unknown) CT, CT ANGIO CHEST ABDOMEN PELVIS, 08/28/2020, (unknown) (no (unknown) (unknown) CT Scan Report (units (unknown) date) unknown) (unknown) (no (unknown) (unknown) Central and (units (un known) date) peripheral airways unknown) are patent and normal in caliber. (unknown) (no (unknown) (unknown) : 1945 (units (unknown) date) Acct:[id number] unknown) (unknown) (no (unknown) (unknown) Dictated by: Nayeli (units (unknown) date) Clifford Reynolds on unknown) 05/03/2022 at 13:39 (unknown) (no (unknown) (unknown) Esophagus (units (unkn own) date) unknown) (unknown) (no (unknown) (unknown) FINDINGS: (units (unkn own) date) unknown) (unknown) (no (unknown) (unknown) Genitourinary: (units (unknown) date) Bladder wall unknown) thickness is normal. (unknown) (no (unknown) (unknown) IMPRESSION: (units (un known) date) unknown) (unknown) (no (unknown) (unknown) INDICATIONS: (units (u nknown) date) chest pain with unknown) prior dissection (unknown) (no (unknown) (unknown) Image quality: (units (unknown) date) Excellent. unknown) (unknown) (no (unknown) (unknown) Inferior vena (units ( unknown) date) cava is normal in unknown) morphology. (unknown) (no (unknown) (unknown) [facility] (units (unknown) date) unknown) (unknown) (no (unknown) (unknown) Loc: ED (units (unkno wn) date) unknown) (unknown) (no (unknown) (unknown) Lungs and pleura: (units (unknown) date) No acute airspace unknown) opacities. No pleural effusions or (unknown) (no (unknown) (unknown) [id number] (units (unk nown) date) unknown) (unknown) (no (unknown) (unknown) Mediastinum: (units (u nknown) date) Heart size is unknown) normal. No pericardial effusion. Atheromatous (unknown) (no (unknown) (unknown) Miscellaneous: No (units (unknown) date) inguinal hernias unknown) or adenopathy. No ventral hernias. (unknown) (no (unknown) (unknown) Miscellaneous: No (units (unknown) date) ventral hernias. unknown) (unknown) (no (unknown) (unknown) Nodes and (units (unkn own) date) vessels: No unknown) retroperitoneal or mesenteric adenopathy by size (unknown) (no (unknown) (unknown) Ordering (units (unkno wn) date) Provider: unknown) Bridgett Fletcher D.O. (unknown) (no (unknown) (unknown) PELVIS: (units (unkno wn) date) unknown) (unknown) (no (unknown) (unknown) PROCEDURE: CT (units ( unknown) date) ANGIO CHEST unknown) ABDOMEN PELVIS (unknown) (no (unknown) (unknown) Patient: (units (unkno wn) date) Dominic Viveros unknown) MR#: (unknown) (no (unknown) (unknown) Peritoneum and (units (unknown) date) bowel: No free unknown) fluid or air. Bowel loops are normal in caliber (unknown) (no (unknown) (unknown) Precontrast 5 mm (units (unknown) date) thick sections unknown) acquired from the lung apices to the iliac (unknown) (no (unknown) (unknown) Procedure: CT (units ( unknown) date) angio chest unknown) abdomen pelvis (unknown) (no (unknown) (unknown) Signed (units (unkno wn) date) unknown) (unknown) (no (unknown) (unknown) Solid organs: (units ( unknown) date) Liver is normal in unknown) size and enhancement. Gallbladder is (unknown) (no (unknown) (unknown) TECHNIQUE: (units (unk nown) date) unknown) (unknown) (no (unknown) (unknown) Vasculature: The (units (unknown) date) celiac axis, SMA, unknown) and FLORI are widely patent. The bilateral (unknown) (no (unknown) (unknown) abdominal aorta. (units (unknown) date) No aneurysmal unknown) dilatation, wall thickening, intramural (unknown) (no (unknown) (unknown) acquired from the (units (unknown) date) unknown) (unknown) (no (unknown) (unknown) acute (units (unkno wn) date) unknown) (unknown) (no (unknown) (unknown) adenopathy by (units ( unknown) date) size criteria. unknown) Central pulmonary arteries are normal in size. (unknown) (no (unknown) (unknown) and enhancement. (units (unknown) date) No adrenal unknown) nodules. Both kidneys are normal in size and (unknown) (no (unknown) (unknown) and wall (units (unkno wn) date) unknown) (unknown) (no (unknown) (unknown) appendix is thin (units (unknown) date) walled and gas unknown) filled. (unknown) (no (unknown) (unknown) arteries are (units (u nknown) date) patent. Dense unknown) atheromatous calcifications are present throughout (unknown) (no (unknown) (unknown) calcifications (units (unknown) date) are present within unknown) the coronary arteries. No mediastinal or (unknown) (no (unknown) (unknown) coronal reformats (units (unknown) date) were then unknown) acquired. For radiation dose reduction, the (unknown) (no (unknown) (unknown) crests. After (units ( unknown) date) unknown) (unknown) (no (unknown) (unknown) criteria. (units (unkn own) date) unknown) (unknown) (no (unknown) (unknown) dilatation of (units ( unknown) date) unknown) (unknown) (no (unknown) (unknown) dissection. (units (un known) date) unknown) (unknown) (no (unknown) (unknown) diverticulitis. (units (unknown) date) The unknown) (unknown) (no (unknown) (unknown) diverticulitis. (units (unknown) date) unknown) (unknown) (no (unknown) (unknown) enhancement, (units (u nknown) date) unknown) (unknown) (no (unknown) (unknown) fat (units (unkno wn) date) unknown) (unknown) (no (unknown) (unknown) following was (units ( unknown) date) unknown) (unknown) (no (unknown) (unknown) fractures. (units (unk nown) date) unknown) (unknown) (no (unknown) (unknown) hematoma, or (units (u nknown) date) unknown) (unknown) (no (unknown) (unknown) hilar (units (unkno wn) date) unknown) (unknown) (no (unknown) (unknown) hip (units (unkno wn) date) arthroplasties are unknown) grossly intact. (unknown) (no (unknown) (unknown) is normal in (units (u nknown) date) caliber. No hiatal unknown) hernias. (unknown) (no (unknown) (unknown) is (units (unkno wn) date) unknown) (unknown) (no (unknown) (unknown) lung apices to (units (unknown) date) the iliac crests. unknown) Maximum intensity projection (MIP) oblique (unknown) (no (unknown) (unknown) normal in size (units (unknown) date) unknown) (unknown) (no (unknown) (unknown) pneumothorax. (units ( unknown) date) unknown) (unknown) (no (unknown) (unknown) renal (units (unkno wn) date) unknown) (unknown) (no (unknown) (unknown) sagittal and (units (u nknown) date) unknown) (unknown) (no (unknown) (unknown) stranding, (units (unk nown) date) intramural unknown) hematomas, or wall thickening. (unknown) (no (unknown) (unknown) surgically absent (units (unknown) date) unknown) (unknown) (no (unknown) (unknown) the (units (unkno wn) date) administration of unknown) intravenous contrast, 2.5 mm thick sections again (unknown) (no (unknown) (unknown) the arch or (units (un known) date) descending unknown) thoracic aorta. No aortic dissection. No periaortic (unknown) (no (unknown) (unknown) the (units (unkno wn) date) unknown) (unknown) (no (unknown) (unknown) thickness. There (units (unknown) date) are scattered unknown) sigmoid diverticula. No evidence for (unknown) (no (unknown) (unknown) unremarkable. No (units (unknown) date) suspicious bony unknown) lesions. No vertebral body compression (unknown) (no (unknown) (unknown) used: automated (units (unknown) date) exposure control. unknown) (unknown) (no (unknown) (unknown) without (units (unkno wn) date) hydronephrosis. unknown) Result panel 6 (unknown) (no (unknown) (unknown) (no value) (units (unk nown) date) unknown) (unknown) (no (unknown) (unknown) 'He gets (units (unkno wn) date) unknown) (unknown) (no (unknown) (unknown) (Xopenex HFA) #15 (units (unknown) date) grams unknown) (unknown) (no (unknown) (unknown) 0.2 mg PO BID (units ( unknown) date) unknown) (unknown) (no (unknown) (unknown) [id number] (units (unkn own) date) unknown) (unknown) (no (unknown) (unknown) 02/03/22 (units (unkno wn) date) unknown) (unknown) (no (unknown) (unknown) 05/03/22 05/03/22 (units (unknown) date) Range/Units unknown) (unknown) (no (unknown) (unknown) 05/03/22 12:01 (units (unknown) date) unknown) (unknown) (no (unknown) (unknown) 05/03/22 12:07 (units (unknown) date) unknown) (unknown) (no (unknown) (unknown) 05/03/22 (units (unkno wn) date) unknown) (unknown) (no (unknown) (unknown) 0RF (units (unkno wn) date) unknown) (unknown) (no (unknown) (unknown) 1 [...] (unknown) date) unknown) (unknown) (no (unknown) (unknown) 11:51 05/03/22 (units (unknown) date) unknown) (unknown) (no (unknown) (unknown) 11:58 (units (unkno wn) date) unknown) (unknown) (no (unknown) (unknown) 12:07 12:07 (units (un known) date) unknown) (unknown) (no (unknown) (unknown) 12:18 (units (unkno wn) date) unknown) (unknown) (no (unknown) (unknown) 2 [...] Qty: 60 0RF (unknown) (no (unknown) (unknown) ALT 26 (<50) IU/L (units (unknown) date) unknown) (unknown) (no (unknown) (unknown) ANTIBIOTICS)] (units ( unknown) date) unknown) (unknown) (no (unknown) (unknown) ANXIETY, (units (unkno wn) date) unknown) (unknown) (no (unknown) (unknown) AST 30 (17-59) (units (unknown) date) IU/L unknown) (unknown) (no (unknown) (unknown) Achalasia (units (unkn own) date) unknown) (unknown) (no (unknown) (unknown) Age/Sex: 77 / M (units (unknown) date) unknown) (unknown) (no (unknown) (unknown) Albumin 3.8 (units (un known) date) (3.5-5.0) g/dL unknown) (unknown) (no (unknown) (unknown) Albumin/Globulin (units (unknown) date) Ratio 1.3 unknown) (1.0-2.8) (unknown) (no (unknown) (unknown) Alkaline (units (unkno wn) date) Phosphatase 95 unknown) (38-126) U/L (unknown) (no (unknown) (unknown) Allergies (units (unkn own) date) unknown) (unknown) (no (unknown) (unknown) Allergy/AdvReac [...] fibrillation unknown) (unknown) (no (unknown) (unknown) BUN 17 (9-20) (units ( unknown) date) mg/dL unknown) (unknown) (no (unknown) (unknown) BUN/Creatinine (units (unknown) date) Ratio 24.3 H unknown) (6-22) (unknown) (no (unknown) (unknown) Baso # (Auto) 100 (units (unknown) date) (0-100) /uL unknown) (unknown) (no (unknown) (unknown) Baso % (Auto) 1.0 (units (unknown) date) (0-2) % unknown) (unknown) (no (unknown) (unknown) Blood Pressure (units (unknown) date) 210/90 H 05/03/22 unknown) 11:51 (unknown) (no (unknown) (unknown) Blood Pressure (units (unknown) date) 210/90 H 176/94 H unknown) (unknown) (no (unknown) (unknown) COPD (chronic (units ( unknown) date) obstructive unknown) pulmonary disease) (unknown) (no (unknown) (unknown) Calcium 8.8 (units (un known) date) (8.4-10.2) mg/dL unknown) (unknown) (no (unknown) (unknown) Carbon Dioxide 25 (units (unknown) date) (22-32) mmol/L unknown) (unknown) (no (unknown) (unknown) Cervical spinal (units (unknown) date) stenosis unknown) (unknown) (no (unknown) (unknown) Chief Complaint: (units (unknown) date) Chest Pain unknown) (unknown) (no (unknown) (unknown) Chloride 102 [...] date) unknown) (unknown) (no (unknown) (unknown) Creatinine 0.70 (units (unknown) date) (0.66-1.25) mg/dL unknown) (unknown) (no (unknown) (unknown) DIZZINESS (units (unkn own) date) unknown) (unknown) (no (unknown) (unknown) : 1945 (units (unknown) date) Acct:[id number] unknown) (unknown) (no (unknown) (unknown) Kimmy Gomez, (units (unknown) date) [Primary Care unknown) Provider] (unknown) (no (unknown) (unknown) Date of Service: (units (unknown) date) 05/03/22 unknown) (unknown) (no (unknown) (unknown) Departure (units (unkn own) date) unknown) (unknown) (no (unknown) (unknown) Discharge Plan (units (unknown) date) unknown) (unknown) (no (unknown) (unknown) ED Orders (units (unkn own) date) unknown) (unknown) (no (unknown) (unknown) EKG-12 Lead Stat (units (unknown) date) unknown) (unknown) (no (unknown) (unknown) ER Physician: (units ( unknown) date) Bridgett Fletcher unknown) D.O. (unknown) (no (unknown) (unknown) EXPOSURE (units (unkno wn) date) unknown) (unknown) (no (unknown) (unknown) Emergency Report (units (unknown) date) unknown) (unknown) (no (unknown) (unknown) Eos # (Auto) 200 (units (unknown) date) (0-450) /uL unknown) (unknown) (no (unknown) (unknown) Eos % (Auto) 3.4 (units (unknown) date) (2-4) % unknown) (unknown) [...] (unknown) Globulin 3.0 (units (u nknown) date) (1.7-4.1) g/dL unknown) (unknown) (no (unknown) (unknown) Glucose 155 H (units ( unknown) date) (80-110) mg/dL unknown) (unknown) (no (unknown) (unknown) H/O arthroscopic (units (unknown) date) knee surgery unknown) (11/14/17) (unknown) (no (unknown) (unknown) HPI - Chest Pain (units (unknown) date) unknown) (unknown) (no (unknown) (unknown) Hct 38.4 L (units (unk nown) date) (41-53) % unknown) (unknown) (no (unknown) (unknown) Hgb 13.3 L (units (unk nown) date) (13.5-17.5) g/dL [...] date) cardiomyopathy unknown) (unknown) (no (unknown) (unknown) [facility] (units (unknown) date) [address] unknown) [place] [address] (unknown) (no (unknown) (unknown) JERKING, (units (unkno wn) date) unknown) (unknown) (no (unknown) (unknown) Lab Data (units (unkno wn) date) unknown) (unknown) (no (unknown) (unknown) Lab Results (units (un known) date) unknown) (unknown) (no (unknown) (unknown) Label Comments: (units (unknown) date) unknown) (unknown) (no (unknown) (unknown) Labs: (units (unkno wn) date) unknown) (unknown) (no (unknown) (unknown) Limitations: no (units (unknown) date) limitations unknown) (unknown) (no (unknown) (unknown) Lipase 73 (units (unkn own) date) (23-300) U/L unknown) (unknown) (no (unknown) (unknown) Lipase Stat (units (un known) date) unknown) (unknown) (no (unknown) (unknown) Lymph # (Auto) (units (unknown) date) 1100 ([phone]) unknown) /uL (unknown) (no (unknown) (unknown) Lymph % (Auto) (units (unknown) date) 16.6 L (25-40) % unknown) (unknown) (no (unknown) (unknown) MCH 30.2 (26-34) (units (unknown) date) PG unknown) (unknown) (no (unknown) (unknown) MCHC 34.6 (30-36) (units (unknown) date) % unknown) (unknown) (no (unknown) (unknown) MCV 87.3 (80-100) (units (unknown) date) fL unknown) (unknown) (no (unknown) (unknown) MDM - Chest Pain (units (unknown) date) unknown) (unknown) (no (unknown) (unknown) MINUTES (units (unkno wn) date) unknown) (unknown) (no (unknown) (unknown) Magnesium 1.9 (units ( unknown) date) (1.6-2.3) mg/dL unknown) (unknown) (no (unknown) (unknown) Magnesium Stat (units (unknown) date) unknown) (unknown) (no (unknown) (unknown) Medical History (units (unknown) date) (Reviewed 02/07/22 unknown) @ 11:16 [facility]) (unknown) (no (unknown) (unknown) Medication (units (unk nown) date) Instructions unknown) Recorded Confirmed (unknown) (no (unknown) (unknown) Medication (units (unk nown) date) Instructions unknown) Recorded (unknown) (no (unknown) (unknown) Mode of arrival: (units (unknown) date) Ambulatory unknown) (unknown) (no (unknown) (unknown) [place] # (Auto) 600 (units (unknown) date) (0-900) /uL unknown) (unknown) (no (unknown) (unknown) [place] % (Auto) 8.8 (units (unknown) date) (3-14) % unknown) (unknown) (no (unknown) (unknown) Mother (units (unknown) date) Stroke unknown) (unknown) (no (unknown) (unknown) NAUSEA W/I (units (unk nown) date) unknown) (unknown) (no (unknown) (unknown) Narcotic (units (unkno wn) date) dependence unknown) (unknown) (no (unknown) (unknown) Neck pain, (units (unk nown) date) chronic unknown) (unknown) (no (unknown) (unknown) Neut # (Auto) (units ( unknown) date) 4800 (3385-9632) unknown) /uL (unknown) (no (unknown) (unknown) Neut % (Auto) (units ( unknown) date) 70.2 (50-75) % unknown) (unknown) (no (unknown) (unknown) Nitroglycerin (units ( unknown) date) (Nitroglycerin 0.4 unknown) Mg Sl Tab) 0.4 mg SL [id number] PRN (unknown) (no (unknown) (unknown) No Action (units (unkn own) date) unknown) (unknown) (no (unknown) (unknown) Ordered: (units (unkno wn) date) unknown) (unknown) (no (unknown) (unknown) Orders (units (unkno wn) date) unknown) (unknown) (no (unknown) (unknown) Oxygen Delivery (units (unknown) date) Method 05/03/22 unknown) 11:51 (unknown) (no (unknown) (unknown) Oxygen Delivery (units (unknown) date) Method Room Air unknown) Room Air (unknown) (no (unknown) (unknown) PRN Reason: Chest (units (unknown) date) Pain unknown) (unknown) (no (unknown) (unknown) Patient History (units (unknown) date) unknown) (unknown) (no (unknown) (unknown) Patient: (units (unkno wn) date) Dominic Viveros unknown) MR#: M (unknown) (no (unknown) (unknown) Plt Count 188 (units ( unknown) date) (150-400) X103/uL unknown) (unknown) (no (unknown) (unknown) Potassium 4.0 (units ( unknown) date) (3.4-5.1) mmol/L unknown) (unknown) (no (unknown) (unknown) Prescriptions: (units (unknown) date) unknown) (unknown) (no (unknown) (unknown) Previous Rx's (units ( unknown) date) unknown) (unknown) (no (unknown) (unknown) Pulse Oximetry 96 (units (unknown) date) 05/03/22 11:51 unknown) (unknown) (no (unknown) (unknown) Pulse Oximetry 96 (units (unknown) date) 99 unknown) (unknown) (no (unknown) (unknown) Pulse Rate 65 (units ( unknown) date) 05/03/22 11:51 unknown) (unknown) (no (unknown) (unknown) Pulse Rate 65 65 (units (unknown) date) unknown) (unknown) (no (unknown) (unknown) RBC 4.40 L (units (unk nown) date) (4.5-5.9) X106/uL unknown) (unknown) (no (unknown) (unknown) RDW 13.6 (units (unkno wn) date) (11.6-14.8) % unknown) (unknown) (no (unknown) (unknown) Referrals: (units (unk nown) date) unknown) (unknown) (no (unknown) (unknown) Related Data (units (u nknown) date) unknown) (unknown) (no (unknown) (unknown) Respiratory Rate (units (unknown) date) 18 05/03/22 11:51 unknown) (unknown) (no (unknown) (unknown) Respiratory Rate (units (unknown) date) 18 18 unknown) (unknown) (no (unknown) (unknown) Result diagrams: (units (unknown) date) unknown) (unknown) (no (unknown) (unknown) Rx [...] [facility]) (unknown) (no (unknown) (unknown) Sodium 137 (units (unk nown) date) (137-145) mmol/L unknown) (unknown) (no (unknown) (unknown) Source: patient (units (unknown) date) unknown) (unknown) (no (unknown) (unknown) Stated Complaint: (units (unknown) date) Chest pains, Pain unknown) in arm (unknown) (no (unknown) (unknown) [id number] (units (unknown) date) Reductase AdvReac unknown) Mild WEAK Verified 05/03/22 11:58 (unknown) (no (unknown) (unknown) Substance Use (units ( unknown) date) Type: does not use unknown) (unknown) (no (unknown) (unknown) Sulfa (units (unkno wn) date) (Sulfonamide unknown) Allergy Mild RASH Verified 05/03/22 11:58 (unknown) (no (unknown) (unknown) Surgical History (units (unknown) date) (Reviewed 02/07/22 unknown) @ 11:16 [facility]) (unknown) (no (unknown) (unknown) Temperature 98.4 (units (unknown) date) F 05/03/22 11:51 unknown) (unknown) (no (unknown) (unknown) Temperature 98.4 (units (unknown) date) F unknown) (unknown) (no (unknown) (unknown) Time Seen by (units (u nknown) date) Provider: 05/03/22 unknown) 12:16 (unknown) (no (unknown) (unknown) Total Bilirubin (units (unknown) date) 0.3 (0.2-1.3) unknown) mg/dL (unknown) (no (unknown) (unknown) Total Creatine (units (unknown) date) Kinase 103 unknown) (55-170) U/L (unknown) (no (unknown) (unknown) Total Protein 6.8 (units (unknown) date) (6.3-8.2) g/dL unknown) (unknown) (no (unknown) (unknown) Troponin + CK (units ( unknown) date) Cardiac Panel Stat unknown) (unknown) (no (unknown) (unknown) Ventricular (units (un known) date) bigeminy unknown) (unknown) (no (unknown) (unknown) Vital Signs - 8 (units (unknown) date) hr unknown) (unknown) (no (unknown) (unknown) Vital Signs (units (un known) date) unknown) (unknown) (no (unknown) (unknown) Vital signs: (units (u nknown) date) unknown) (unknown) (no (unknown) (unknown) W/EXTENDED (units (unk nown) date) unknown) (unknown) (no (unknown) (unknown) WBC 6.8 (units (unkno wn) date) (4.5-11.0) X103/uL unknown) (unknown) (no (unknown) (unknown) XR chest 1V Stat (units (unknown) date) unknown) (unknown) (no (unknown) (unknown) Zyrtec 10 mg (units (u nknown) date) Capsule unknown) (unknown) (no (unknown) (unknown) [Embedded Image (units (unknown) date) Not Available] unknown) (unknown) (no (unknown) (unknown) [[id number] (units (unknown) date) REDUCTASE unknown) (unknown) (no (unknown) (unknown) [SULFA (units (unkno wn) date) (SULFONAMIDE unknown) (unknown) (no (unknown) (unknown) acetaminophen 300 (units (unknown) date) mg-codeine 30 mg 2 unknown) tab PO Q4H PRN Pain (Scale Score 02/03/22 (unknown) (no (unknown) (unknown) acetaminophen-cod (units (unknown) date) eine 300-30 mg unknown) tablet (unknown) (no (unknown) (unknown) alcohol intake (units (unknown) date) frequency: 0-2 unknown) drinks per day (unknown) (no (unknown) (unknown) alcohol intake: (units (unknown) date) current unknown) (unknown) (no (unknown) (unknown) buprenorphine (units ( unknown) date) [BUPRENORPHINE] unknown) AdvReac Mild NAUSEA, Verified 05/03/22 11:58 (unknown) (no (unknown) (unknown) caps (units (unkno wn) date) unknown) (unknown) (no (unknown) (unknown) celecoxib (units (unkn own) date) [CELECOXIB] unknown) Allergy Mild SWELLING Verified 05/03/22 11:58 (unknown) (no (unknown) (unknown) cetirizine 10 mg (units (unknown) date) capsule (Zyrtec) unknown) 10 mg PO DAILY 05/22/19 02/03/22 (unknown) (no (unknown) (unknown) clonidine HCl 0.1 (units (unknown) date) mg tablet 0.2 mg unknown) PO BID 12/08/21 02/03/22 (unknown) (no (unknown) (unknown) clonidine HCl 0.1 (units (unknown) date) mg tablet unknown) (unknown) (no (unknown) (unknown) diazepam [From (units (unknown) date) Valium] Allergy unknown) Severe Confusion Verified 05/03/22 11:58 (unknown) (no (unknown) (unknown) docusate sodium (units (unknown) date) 100 mg Capsule unknown) (unknown) (no (unknown) (unknown) docusate sodium (units (unknown) date) 100 mg capsule 100 unknown) mg PO BID PRN constipation #60 02/07/22 (unknown) (no (unknown) (unknown) fentanyl AdvReac (units (unknown) date) Severe Confusion unknown) Verified 05/03/22 11:58 (unknown) (no (unknown) (unknown) ferrous sulfate (units (unknown) date) 325 mg (65 mg 325 unknown) mg PO DAILY 10/19/19 02/03/22 (unknown) (no (unknown) (unknown) ferrous sulfate (units (unknown) date) 325 mg (65 mg unknown) iron) tablet,delayed release (DR/EC) (unknown) (no (unknown) (unknown) fluticasone (units (un known) date) propionate 16 GM unknown) spray,suspension (unknown) (no (unknown) (unknown) fluticasone (units (un known) date) propionate 50 1 unknown) spray intranasal DAILY PRN 11/02/17 02/03/22 (unknown) (no (unknown) (unknown) furosemide 40 mg (units (unknown) date) tablet 40 mg PO unknown) DAILY 02/03/22 02/03/22 (unknown) (no (unknown) (unknown) furosemide 40 mg (units (unknown) date) tablet unknown) (unknown) (no (unknown) (unknown) glipizide 2.5 mg (units (unknown) date) tablet, extended unknown) 2.5 mg PO DAILY 10/08/21 02/03/22 (unknown) (no (unknown) (unknown) glipizide (units (unkn own) date) [Glucotrol XL] 2.5 unknown) mg tablet extended release 24 hr (unknown) (no (unknown) (unknown) household (units (unkn own) date) members: spouse unknown) (unknown) (no (unknown) (unknown) hydromorphone (units ( unknown) date) [From Dilaudid] unknown) Allergy Severe Hallucinating, Verified 05/03/22 (unknown) (no (unknown) (unknown) hyoscyamine (units (un known) date) [HYOSCYAMINE] unknown) AdvReac Mild LEG Verified 05/03/22 11:58 (unknown) (no (unknown) (unknown) iron) (units (unkno wn) date) tablet,delayed unknown) release (unknown) (no (unknown) (unknown) latex [LATEX] (units ( unknown) date) Allergy Mild RASH unknown) Verified 05/03/22 11:58 (unknown) (no (unknown) (unknown) levalbuterol (units (u nknown) date) tartrate 45 1 puff unknown) inhalation Q4-6H PRN 06/22/18 (unknown) (no (unknown) (unknown) levalbuterol (units (u nknown) date) tartrate [Xopenex unknown) HFA] 45 mcg/actuation HFA aerosol inhaler (unknown) (no (unknown) (unknown) lisinopril 10 mg (units (unknown) date) tablet 10 mg PO unknown) DAILY 12/08/21 02/03/22 (unknown) (no (unknown) (unknown) lisinopril 10 mg (units (unknown) date) tablet unknown) (unknown) (no (unknown) (unknown) mcg/actuation (units ( unknown) date) aerosol inhaler unknown) shortness of breath or wheezing (unknown) (no (unknown) (unknown) mcg/actuation (units ( unknown) date) nasal Allergy unknown) Symptoms ##0 (unknown) (no (unknown) (unknown) meclizine 25 mg (units (unknown) date) tablet 25 mg PO unknown) QID PRN vertigo #30 tabs 10/09/21 (unknown) (no (unknown) (unknown) meclizine 25 mg (units (unknown) date) tablet unknown) (unknown) (no (unknown) (unknown) metoprolol (units (unk nown) date) succinate 100 mg unknown) 100 mg PO DAILY 02/03/22 02/03/22 (unknown) (no (unknown) (unknown) metoprolol (units (unk nown) date) succinate 100 mg unknown) Tablet Extended Release 24 Hr (unknown) (no (unknown) (unknown) mind' (units (unkno wn) date) unknown) (unknown) (no (unknown) (unknown) montelukast 10 mg (units (unknown) date) Tablet unknown) (unknown) (no (unknown) (unknown) montelukast 10 mg (units (unknown) date) tablet 10 mg PO unknown) DAILY 02/03/22 02/03/22 (unknown) (no (unknown) (unknown) morphine Allergy (units (unknown) date) Severe unknown) Hallucinating, Verified 05/03/22 11:58 (unknown) (no (unknown) (unknown) multivitamin (units (u nknown) date) (Multiple Vitamins unknown) 1 tab PO DAILY ##0 12/20/16 02/03/22 (unknown) (no (unknown) (unknown) multivitamin (units (u nknown) date) [Multiple unknown) Vitamins] 1 EACH tablet (unknown) (no (unknown) (unknown) out of his (units (unk nown) date) unknown) (unknown) (no (unknown) (unknown) oxycodone 5 mg (units (unknown) date) tablet 5 mg PO Q4H unknown) PRN pain, moderate #60 02/07/22 (unknown) (no (unknown) (unknown) oxycodone 5 mg (units (unknown) date) tablet unknown) (unknown) (no (unknown) (unknown) release 24 [...] 24 hr unknown) (unknown) (no (unknown) (unknown) tabs (units (unkno wn) date) unknown) (unknown) (no (unknown) (unknown) take 1 tablet by (units (unknown) date) mouth once daily unknown) (unknown) (no (unknown) (unknown) trazodone 100 mg (units (unknown) date) tablet 400 tab PO unknown) BEDTIME 30 days #120 12/10/21 (unknown) (no (unknown) (unknown) trazodone 100 mg (units (unknown) date) tablet unknown) (unknown) (no (unknown) (unknown) varenicline (units (un known) date) [VARENICLINE] unknown) AdvReac Severe Paranoia Verified 05/03/22 11:58 Result panel 7 (unknown) (no (unknown) (unknown) (no value) (units (unk nown) date) unknown) (unknown) (no (unknown) (unknown) 'He gets (units (unkno wn) date) unknown) (unknown) (no (unknown) (unknown) (Xopenex HFA) #15 (units (unknown) date) grams unknown) (unknown) (no (unknown) (unknown) 0.2 mg PO BID (units ( unknown) date) unknown) (unknown) (no (unknown) (unknown) [id number] (units (unkn own) date) unknown) (unknown) (no (unknown) (unknown) 02/03/22 (units (unkno wn) date) unknown) (unknown) (no (unknown) (unknown) 05/03/22 05/03/22 (units (unknown) date) Range/Units unknown) (unknown) (no (unknown) (unknown) 05/03/22 12:01 (units (unknown) date) unknown) (unknown) (no (unknown) (unknown) 05/03/22 12:07 (units (unknown) date) unknown) (unknown) (no (unknown) (unknown) 05/03/22 12:45 (units (unknown) date) unknown) (unknown) (no (unknown) (unknown) 05/03/22 (units (unkno wn) date) unknown) (unknown) (no (unknown) (unknown) 0RF (units (unkno wn) date) unknown) (unknown) (no (unknown) (unknown) 1 [...] (unknown) date) unknown) (unknown) (no (unknown) (unknown) 11:51 05/03/22 (units (unknown) date) unknown) (unknown) (no (unknown) (unknown) 11:58 (units (unkno wn) date) unknown) (unknown) (no (unknown) (unknown) 12:07 12:07 (units (un known) date) unknown) (unknown) (no (unknown) (unknown) 12:18 (units (unkno wn) date) unknown) (unknown) (no (unknown) (unknown) 2 [...] Qty: 60 0RF (unknown) (no (unknown) (unknown) ALT 26 (<50) IU/L (units (unknown) date) unknown) (unknown) (no (unknown) (unknown) ANTIBIOTICS)] (units ( unknown) date) unknown) (unknown) (no (unknown) (unknown) ANXIETY, (units (unkno wn) date) unknown) (unknown) (no (unknown) (unknown) AST 30 (17-59) (units (unknown) date) IU/L unknown) (unknown) (no (unknown) (unknown) Achalasia (units (unkn own) date) unknown) (unknown) (no (unknown) (unknown) Age/Sex: 77 / M (units (unknown) date) unknown) (unknown) (no (unknown) (unknown) Albumin 3.8 (units (un known) date) (3.5-5.0) g/dL unknown) (unknown) (no (unknown) (unknown) Albumin/Globulin (units (unknown) date) Ratio 1.3 unknown) (1.0-2.8) (unknown) (no (unknown) (unknown) Alkaline (units (unkno wn) date) Phosphatase 95 unknown) (38-126) U/L (unknown) (no (unknown) (unknown) Allergies (units (unkn own) date) unknown) (unknown) (no (unknown) (unknown) Allergy/AdvReac [...] fibrillation unknown) (unknown) (no (unknown) (unknown) BUN 17 (9-20) (units ( unknown) date) mg/dL unknown) (unknown) (no (unknown) (unknown) BUN/Creatinine (units (unknown) date) Ratio 24.3 H unknown) (6-22) (unknown) (no (unknown) (unknown) Baso # (Auto) 100 (units (unknown) date) (0-100) /uL unknown) (unknown) (no (unknown) (unknown) Baso % (Auto) 1.0 (units (unknown) date) (0-2) % unknown) (unknown) (no (unknown) (unknown) Blood Pressure (units (unknown) date) 210/90 H 05/03/22 unknown) 11:51 (unknown) (no (unknown) (unknown) Blood Pressure (units (unknown) date) 210/90 H 176/94 H unknown) (unknown) (no (unknown) (unknown) COPD (chronic (units ( unknown) date) obstructive unknown) pulmonary disease) (unknown) (no (unknown) (unknown) CT angio chest (units (unknown) date) abdomen pelvis unknown) Stat (unknown) (no (unknown) (unknown) Calcium 8.8 (units (un known) date) (8.4-10.2) mg/dL unknown) (unknown) (no (unknown) (unknown) Carbon Dioxide 25 (units (unknown) date) (22-32) mmol/L unknown) (unknown) (no (unknown) (unknown) Cervical spinal (units (unknown) date) stenosis unknown) (unknown) (no (unknown) (unknown) Chief Complaint: (units (unknown) date) Chest Pain unknown) (unknown) (no (unknown) (unknown) Chloride 102 [...] date) unknown) (unknown) (no (unknown) (unknown) Creatinine 0.70 (units (unknown) date) (0.66-1.25) mg/dL unknown) (unknown) (no (unknown) (unknown) DIZZINESS (units (unkn own) date) unknown) (unknown) (no (unknown) (unknown) : 1945 (units (unknown) date) Acct:[id number] unknown) (unknown) (no (unknown) (unknown) Kimmy Gomez, (units (unknown) date) [Primary Care unknown) Provider] (unknown) (no (unknown) (unknown) Date of Service: (units (unknown) date) 05/03/22 unknown) (unknown) (no (unknown) (unknown) Departure (units (unkn own) date) unknown) (unknown) (no (unknown) (unknown) Discharge Plan (units (unknown) date) unknown) (unknown) (no (unknown) (unknown) ED Orders (units (unkn own) date) unknown) (unknown) (no (unknown) (unknown) EKG-12 Lead Stat (units (unknown) date) unknown) (unknown) (no (unknown) (unknown) ER Physician: (units ( unknown) date) Bridgett Fletcher unknown) D.O. (unknown) (no (unknown) (unknown) EXPOSURE (units (unkno wn) date) unknown) (unknown) (no (unknown) (unknown) Emergency Report (units (unknown) date) unknown) (unknown) (no (unknown) (unknown) Eos # (Auto) 200 (units (unknown) date) (0-450) /uL unknown) (unknown) (no (unknown) (unknown) Eos % (Auto) 3.4 (units (unknown) date) (2-4) % unknown) (unknown) [...] (unknown) Globulin 3.0 (units (u nknown) date) (1.7-4.1) g/dL unknown) (unknown) (no (unknown) (unknown) Glucose 155 H (units ( unknown) date) (80-110) mg/dL unknown) (unknown) (no (unknown) (unknown) H/O arthroscopic (units (unknown) date) knee surgery unknown) (11/14/17) (unknown) (no (unknown) (unknown) HPI - Chest Pain (units (unknown) date) unknown) (unknown) (no (unknown) (unknown) Hct 38.4 L (units (unk nown) date) (41-53) % unknown) (unknown) (no (unknown) (unknown) Hgb 13.3 L (units (unk nown) date) (13.5-17.5) g/dL [...] date) cardiomyopathy unknown) (unknown) (no (unknown) (unknown) [facility] (units (unknown) date) [address] unknown) [place] [address] (unknown) (no (unknown) (unknown) JERKING, (units (unkno wn) date) unknown) (unknown) (no (unknown) (unknown) Lab Data (units (unkno wn) date) unknown) (unknown) (no (unknown) (unknown) Lab Results (units (un known) date) unknown) (unknown) (no (unknown) (unknown) Label Comments: (units (unknown) date) unknown) (unknown) (no (unknown) (unknown) Labs: (units (unkno wn) date) unknown) (unknown) (no (unknown) (unknown) Limitations: no (units (unknown) date) limitations unknown) (unknown) (no (unknown) (unknown) Lipase 73 (units (unkn own) date) (23-300) U/L unknown) (unknown) (no (unknown) (unknown) Lipase Stat (units (un known) date) unknown) (unknown) (no (unknown) (unknown) Lymph # (Auto) (units (unknown) date) 1100 (8992-5036) unknown) /uL (unknown) (no (unknown) (unknown) Lymph % (Auto) (units (unknown) date) 16.6 L (25-40) % unknown) (unknown) (no (unknown) (unknown) MCH 30.2 (26-34) (units (unknown) date) PG unknown) (unknown) (no (unknown) (unknown) MCHC 34.6 (30-36) (units (unknown) date) % unknown) (unknown) (no (unknown) (unknown) MCV 87.3 (80-100) (units (unknown) date) fL unknown) (unknown) (no (unknown) (unknown) MDM - Chest Pain (units (unknown) date) unknown) (unknown) (no (unknown) (unknown) MINUTES (units (unkno wn) date) unknown) (unknown) (no (unknown) (unknown) Magnesium 1.9 (units ( unknown) date) (1.6-2.3) mg/dL unknown) (unknown) (no (unknown) (unknown) Magnesium Stat (units (unknown) date) unknown) (unknown) (no (unknown) (unknown) Medical History (units (unknown) date) (Reviewed 02/07/22 unknown) @ 11:16 [facility]) (unknown) (no (unknown) (unknown) Medication (units (unk nown) date) Instructions unknown) Recorded Confirmed (unknown) (no (unknown) (unknown) Medication (units (unk nown) date) Instructions unknown) Recorded (unknown) (no (unknown) (unknown) Mode of arrival: (units (unknown) date) Ambulatory unknown) (unknown) (no (unknown) (unknown) [place] # (Auto) 600 (units (unknown) date) (0-900) /uL unknown) (unknown) (no (unknown) (unknown) [place] % (Auto) 8.8 (units (unknown) date) (3-14) % unknown) (unknown) (no (unknown) (unknown) Mother (units (unknown) date) Stroke unknown) (unknown) (no (unknown) (unknown) NAUSEA W/I (units (unk nown) date) unknown) (unknown) (no (unknown) (unknown) Narcotic (units (unkno wn) date) dependence unknown) (unknown) (no (unknown) (unknown) Neck pain, (units (unk nown) date) chronic unknown) (unknown) (no (unknown) (unknown) Neut # (Auto) (units ( unknown) date) 4800 (0964-4685) unknown) /uL (unknown) (no (unknown) (unknown) Neut % (Auto) (units ( unknown) date) 70.2 (50-75) % unknown) (unknown) (no (unknown) (unknown) Nitroglycerin (units ( unknown) date) (Nitroglycerin 0.4 unknown) Mg Sl Tab) 0.4 mg SL [id number] PRN (unknown) (no (unknown) (unknown) No Action (units (unkn own) date) unknown) (unknown) (no (unknown) (unknown) Ordered: (units (unkno wn) date) unknown) (unknown) (no (unknown) (unknown) Orders (units (unkno wn) date) unknown) (unknown) (no (unknown) (unknown) Oxygen Delivery (units (unknown) date) Method 05/03/22 unknown) 11:51 (unknown) (no (unknown) (unknown) Oxygen Delivery (units (unknown) date) Method Room Air unknown) Room Air (unknown) (no (unknown) (unknown) PRN Reason: Chest (units (unknown) date) Pain unknown) (unknown) (no (unknown) (unknown) Patient History (units (unknown) date) unknown) (unknown) (no (unknown) (unknown) Patient: (units (unkno wn) date) Dominic Viveros unknown) MR#: M (unknown) (no (unknown) (unknown) Plt Count 188 (units ( unknown) date) (150-400) X103/uL unknown) (unknown) (no (unknown) (unknown) Potassium 4.0 (units ( unknown) date) (3.4-5.1) mmol/L unknown) (unknown) (no (unknown) (unknown) Prescriptions: (units (unknown) date) unknown) (unknown) (no (unknown) (unknown) Previous Rx's (units ( unknown) date) unknown) (unknown) (no (unknown) (unknown) Pulse Oximetry 96 (units (unknown) date) 05/03/22 11:51 unknown) (unknown) (no (unknown) (unknown) Pulse Oximetry 96 (units (unknown) date) 99 unknown) (unknown) (no (unknown) (unknown) Pulse Rate 65 (units ( unknown) date) 05/03/22 11:51 unknown) (unknown) (no (unknown) (unknown) Pulse Rate 65 65 (units (unknown) date) unknown) (unknown) (no (unknown) (unknown) RBC 4.40 L (units (unk nown) date) (4.5-5.9) X106/uL unknown) (unknown) (no (unknown) (unknown) RDW 13.6 (units (unkno wn) date) (11.6-14.8) % unknown) (unknown) (no (unknown) (unknown) Referrals: (units (unk nown) date) unknown) (unknown) (no (unknown) (unknown) Related Data (units (u nknown) date) unknown) (unknown) (no (unknown) (unknown) Respiratory Rate (units (unknown) date) 18 05/03/22 11:51 unknown) (unknown) (no (unknown) (unknown) Respiratory Rate (units (unknown) date) 18 18 unknown) (unknown) (no (unknown) (unknown) Result diagrams: (units (unknown) date) unknown) (unknown) (no (unknown) (unknown) Rx [...] [facility]) (unknown) (no (unknown) (unknown) Sodium 137 (units (unk nown) date) (137-145) mmol/L unknown) (unknown) (no (unknown) (unknown) Source: patient (units (unknown) date) unknown) (unknown) (no (unknown) (unknown) Stated Complaint: (units (unknown) date) Chest pains, Pain unknown) in arm (unknown) (no (unknown) (unknown) [id number]-SnL (units (unknown) date) Reductase AdvReac unknown) Mild WEAK Verified 05/03/22 11:58 (unknown) (no (unknown) (unknown) Substance Use (units ( unknown) date) Type: does not use unknown) (unknown) (no (unknown) (unknown) Sulfa (units (unkno wn) date) (Sulfonamide unknown) Allergy Mild RASH Verified 05/03/22 11:58 (unknown) (no (unknown) (unknown) Surgical History (units (unknown) date) (Reviewed 02/07/22 unknown) @ 11:16 by [facility]) (unknown) (no (unknown) (unknown) Temperature 98.4 (units (unknown) date) F 05/03/22 11:51 unknown) (unknown) (no (unknown) (unknown) Temperature 98.4 (units (unknown) date) F unknown) (unknown) (no (unknown) (unknown) Time Seen by (units (u nknown) date) Provider: 05/03/22 unknown) 12:16 (unknown) (no (unknown) (unknown) Total Bilirubin (units (unknown) date) 0.3 (0.2-1.3) unknown) mg/dL (unknown) (no (unknown) (unknown) Total Creatine (units (unknown) date) Kinase 103 unknown) (55-170) U/L (unknown) (no (unknown) (unknown) Total Protein 6.8 (units (unknown) date) (6.3-8.2) g/dL unknown) (unknown) (no (unknown) (unknown) Troponin + CK (units ( unknown) date) Cardiac Panel Stat unknown) (unknown) (no (unknown) (unknown) Ventricular (units (un known) date) bigeminy unknown) (unknown) (no (unknown) (unknown) Vital Signs - 8 (units (unknown) date) hr unknown) (unknown) (no (unknown) (unknown) Vital Signs (units (un known) date) unknown) (unknown) (no (unknown) (unknown) Vital signs: (units (u nknown) date) unknown) (unknown) (no (unknown) (unknown) W/EXTENDED (units (unk nown) date) unknown) (unknown) (no (unknown) (unknown) WBC 6.8 (units (unkno wn) date) (4.5-11.0) X103/uL unknown) (unknown) (no (unknown) (unknown) XR chest 1V Stat (units (unknown) date) unknown) (unknown) (no (unknown) (unknown) Zyrtec 10 mg (units (u nknown) date) Capsule unknown) (unknown) (no (unknown) (unknown) [Embedded Image (units (unknown) date) Not Available] unknown) (unknown) (no (unknown) (unknown) [[id number]-STR-LQU (units (unknown) date) REDUCTASE unknown) (unknown) (no (unknown) (unknown) [SULFA (units (unkno wn) date) (SULFONAMIDE unknown) (unknown) (no (unknown) (unknown) acetaminophen 300 (units (unknown) date) mg-codeine 30 mg 2 unknown) tab PO Q4H PRN Pain (Scale Score 02/03/22 (unknown) (no (unknown) (unknown) acetaminophen-cod (units (unknown) date) eine 300-30 mg unknown) tablet (unknown) (no (unknown) (unknown) alcohol intake (units (unknown) date) frequency: 0-2 unknown) drinks per day (unknown) (no (unknown) (unknown) alcohol intake: (units (unknown) date) current unknown) (unknown) (no (unknown) (unknown) buprenorphine (units ( unknown) date) [BUPRENORPHINE] unknown) AdvReac Mild NAUSEA, Verified 05/03/22 11:58 (unknown) (no (unknown) (unknown) caps (units (unkno wn) date) unknown) (unknown) (no (unknown) (unknown) celecoxib (units (unkn own) date) [CELECOXIB] unknown) Allergy Mild SWELLING Verified 05/03/22 11:58 (unknown) (no (unknown) (unknown) cetirizine 10 mg (units (unknown) date) capsule (Zyrtec) unknown) 10 mg PO DAILY 05/22/19 02/03/22 (unknown) (no (unknown) (unknown) clonidine HCl 0.1 (units (unknown) date) mg tablet 0.2 mg unknown) PO BID 12/08/21 02/03/22 (unknown) (no (unknown) (unknown) clonidine HCl 0.1 (units (unknown) date) mg tablet unknown) (unknown) (no (unknown) (unknown) diazepam [From (units (unknown) date) Valium] Allergy unknown) Severe Confusion Verified 05/03/22 11:58 (unknown) (no (unknown) (unknown) docusate sodium (units (unknown) date) 100 mg Capsule unknown) (unknown) (no (unknown) (unknown) docusate sodium (units (unknown) date) 100 mg capsule 100 unknown) mg PO BID PRN constipation #60 02/07/22 (unknown) (no (unknown) (unknown) fentanyl AdvReac (units (unknown) date) Severe Confusion unknown) Verified 05/03/22 11:58 (unknown) (no (unknown) (unknown) ferrous sulfate (units (unknown) date) 325 mg (65 mg 325 unknown) mg PO DAILY 10/19/19 02/03/22 (unknown) (no (unknown) (unknown) ferrous sulfate (units (unknown) date) 325 mg (65 mg unknown) iron) tablet,delayed release (DR/EC) (unknown) (no (unknown) (unknown) fluticasone (units (un known) date) propionate 16 GM unknown) spray,suspension (unknown) (no (unknown) (unknown) fluticasone (units (un known) date) propionate 50 1 unknown) spray intranasal DAILY PRN 11/02/17 02/03/22 (unknown) (no (unknown) (unknown) furosemide 40 mg (units (unknown) date) tablet 40 mg PO unknown) DAILY 02/03/22 02/03/22 (unknown) (no (unknown) (unknown) furosemide 40 mg (units (unknown) date) tablet unknown) (unknown) (no (unknown) (unknown) glipizide 2.5 mg (units (unknown) date) tablet, extended unknown) 2.5 mg PO DAILY 10/08/21 02/03/22 (unknown) (no (unknown) (unknown) glipizide (units (unkn own) date) [Glucotrol XL] 2.5 unknown) mg tablet extended release 24 hr (unknown) (no (unknown) (unknown) household (units (unkn own) date) members: spouse unknown) (unknown) (no (unknown) (unknown) hydromorphone (units ( unknown) date) [From Dilaudid] unknown) Allergy Severe Hallucinating, Verified 05/03/22 (unknown) (no (unknown) (unknown) hyoscyamine (units (un known) date) [HYOSCYAMINE] unknown) AdvReac Mild LEG Verified 05/03/22 11:58 (unknown) (no (unknown) (unknown) iron) (units (unkno wn) date) tablet,delayed unknown) release (unknown) (no (unknown) (unknown) latex [LATEX] (units ( unknown) date) Allergy Mild RASH unknown) Verified 05/03/22 11:58 (unknown) (no (unknown) (unknown) levalbuterol (units (u nknown) date) tartrate 45 1 puff unknown) inhalation Q4-6H PRN 06/22/18 (unknown) (no (unknown) (unknown) levalbuterol (units (u nknown) date) tartrate [Xopenex unknown) HFA] 45 mcg/actuation HFA aerosol inhaler (unknown) (no (unknown) (unknown) lisinopril 10 mg (units (unknown) date) tablet 10 mg PO unknown) DAILY 12/08/21 02/03/22 (unknown) (no (unknown) (unknown) lisinopril 10 mg (units (unknown) date) tablet unknown) (unknown) (no (unknown) (unknown) mcg/actuation (units ( unknown) date) aerosol inhaler unknown) shortness of breath or wheezing (unknown) (no (unknown) (unknown) mcg/actuation (units ( unknown) date) nasal Allergy unknown) Symptoms ##0 (unknown) (no (unknown) (unknown) meclizine 25 mg (units (unknown) date) tablet 25 mg PO unknown) QID PRN vertigo #30 tabs 10/09/21 (unknown) (no (unknown) (unknown) meclizine 25 mg (units (unknown) date) tablet unknown) (unknown) (no (unknown) (unknown) metoprolol (units (unk nown) date) succinate 100 mg unknown) 100 mg PO DAILY 02/03/22 02/03/22 (unknown) (no (unknown) (unknown) metoprolol (units (unk nown) date) succinate 100 mg unknown) Tablet Extended Release 24 Hr (unknown) (no (unknown) (unknown) mind' (units (unkno wn) date) unknown) (unknown) (no (unknown) (unknown) montelukast 10 mg (units (unknown) date) Tablet unknown) (unknown) (no (unknown) (unknown) montelukast 10 mg (units (unknown) date) tablet 10 mg PO unknown) DAILY 02/03/22 02/03/22 (unknown) (no (unknown) (unknown) morphine Allergy (units (unknown) date) Severe unknown) Hallucinating, Verified 05/03/22 11:58 (unknown) (no (unknown) (unknown) multivitamin (units (u nknown) date) (Multiple Vitamins unknown) 1 tab PO DAILY ##0 12/20/16 02/03/22 (unknown) (no (unknown) (unknown) multivitamin (units (u nknown) date) [Multiple unknown) Vitamins] 1 EACH tablet (unknown) (no (unknown) (unknown) out of his (units (unk nown) date) unknown) (unknown) (no (unknown) (unknown) oxycodone 5 mg (units (unknown) date) tablet 5 mg PO Q4H unknown) PRN pain, moderate #60 02/07/22 (unknown) (no (unknown) (unknown) oxycodone 5 mg (units (unknown) date) tablet unknown) (unknown) (no (unknown) (unknown) release 24 [...] 24 hr unknown) (unknown) (no (unknown) (unknown) tabs (units (unkno wn) date) unknown) (unknown) (no (unknown) (unknown) take 1 tablet by (units (unknown) date) mouth once daily unknown) (unknown) (no (unknown) (unknown) trazodone 100 mg (units (unknown) date) tablet 400 tab PO unknown) BEDTIME 30 days #120 12/10/21 (unknown) (no (unknown) (unknown) trazodone 100 mg (units (unknown) date) tablet unknown) (unknown) (no (unknown) (unknown) varenicline (units (un known) date) [VARENICLINE] unknown) AdvReac Severe Paranoia Verified 05/03/22 11:58 Result panel 8 (unknown) (no (unknown) (unknown) (no value) (units (unk nown) date) unknown) (unknown) (no (unknown) (unknown) 'He gets (units (unkno wn) date) unknown) (unknown) (no (unknown) (unknown) (Xopenex HFA) #15 (units (unknown) date) grams unknown) (unknown) (no (unknown) (unknown) 0.2 mg PO BID (units ( unknown) date) unknown) (unknown) (no (unknown) (unknown) [id number] (units (unkn own) date) unknown) (unknown) (no (unknown) (unknown) 02/03/22 (units (unkno wn) date) unknown) (unknown) (no (unknown) (unknown) 05/03/22 05/03/22 (units (unknown) date) Range/Units unknown) (unknown) (no (unknown) (unknown) 05/03/22 12:01 (units (unknown) date) unknown) (unknown) (no (unknown) (unknown) 05/03/22 12:07 (units (unknown) date) unknown) (unknown) (no (unknown) (unknown) 05/03/22 12:45 (units (unknown) date) unknown) (unknown) (no (unknown) (unknown) 05/03/22 (units (unkno wn) date) unknown) (unknown) (no (unknown) (unknown) 0RF (units (unkno wn) date) unknown) (unknown) (no (unknown) (unknown) 1 [...] (unknown) date) unknown) (unknown) (no (unknown) (unknown) 11:51 05/03/22 (units (unknown) date) unknown) (unknown) (no (unknown) (unknown) 11:58 (units (unkno wn) date) unknown) (unknown) (no (unknown) (unknown) 12 point review (units (unknown) date) of systems is unknown) negative except for those stated above and HPI (unknown) (no (unknown) (unknown) 12:07 12:07 (units (un known) date) unknown) (unknown) (no (unknown) (unknown) 12:18 (units (unkno wn) date) unknown) (unknown) (no (unknown) (unknown) 2 [...] Qty: 60 0RF (unknown) (no (unknown) (unknown) ABDOMEN: Soft, (units (unknown) date) nontender. unknown) Normoactive bowel sounds all 4 quadrants. No (unknown) (no (unknown) (unknown) ALT 26 (<50) IU/L (units (unknown) date) unknown) (unknown) (no (unknown) (unknown) ANTIBIOTICS)] (units ( unknown) date) unknown) (unknown) (no (unknown) (unknown) ANXIETY, (units (unkno wn) date) unknown) (unknown) (no (unknown) (unknown) AST 30 (17-59) (units (unknown) date) IU/L unknown) (unknown) (no (unknown) (unknown) Achalasia (units (unkn own) date) unknown) (unknown) (no (unknown) (unknown) Age/Sex: 77 / M (units (unknown) date) unknown) (unknown) (no (unknown) (unknown) Albumin 3.8 (units (un known) date) (3.5-5.0) g/dL unknown) (unknown) (no (unknown) (unknown) Albumin/Globulin (units (unknown) date) Ratio 1.3 unknown) (1.0-2.8) (unknown) (no (unknown) (unknown) Alkaline (units (unkno wn) date) Phosphatase 95 unknown) (38-126) U/L (unknown) (no (unknown) (unknown) Allergies (units (unkn own) date) unknown) (unknown) (no (unknown) (unknown) Allergy/AdvReac [...] fibrillation unknown) (unknown) (no (unknown) (unknown) BUN 17 (9-20) (units ( unknown) date) mg/dL unknown) (unknown) (no (unknown) (unknown) BUN/Creatinine (units (unknown) date) Ratio 24.3 H unknown) (6-22) (unknown) (no (unknown) (unknown) Baso # (Auto) 100 (units (unknown) date) (0-100) /uL unknown) (unknown) (no (unknown) (unknown) Baso % (Auto) 1.0 (units (unknown) date) (0-2) % unknown) (unknown) (no (unknown) (unknown) Blood Pressure (units (unknown) date) 210/90 H 05/03/22 unknown) 11:51 (unknown) (no (unknown) (unknown) Blood Pressure (units (unknown) date) 210/90 H 176/94 H unknown) (unknown) (no (unknown) (unknown) CARDIOVASCULAR: (units (unknown) date) Regular rate and unknown) rhythm without murmurs, rubs or gallops. Pain (unknown) (no (unknown) (unknown) CARDIOVASCULAR: (units (unknown) date) See HPI unknown) (unknown) (no (unknown) (unknown) COPD (chronic (units ( unknown) date) obstructive unknown) pulmonary disease) (unknown) (no (unknown) (unknown) CT angio chest (units (unknown) date) abdomen pelvis unknown) Stat (unknown) (no (unknown) (unknown) Calcium 8.8 (units (un known) date) (8.4-10.2) mg/dL unknown) (unknown) (no (unknown) (unknown) Carbon Dioxide 25 (units (unknown) date) (22-32) mmol/L unknown) (unknown) (no (unknown) (unknown) Cervical spinal (units (unknown) date) stenosis unknown) (unknown) (no (unknown) (unknown) Chief Complaint: (units (unknown) date) Chest Pain unknown) (unknown) (no (unknown) (unknown) Chloride 102 [...] date) unknown) (unknown) (no (unknown) (unknown) Creatinine 0.70 (units (unknown) date) (0.66-1.25) mg/dL unknown) (unknown) (no (unknown) (unknown) DIZZINESS (units (unkn own) date) unknown) (unknown) (no (unknown) (unknown) : 1945 (units (unknown) date) Acct:[id number] unknown) (unknown) (no (unknown) (unknown) Kimmy Gomez, (units (unknown) date) MD [Primary Care unknown) Provider] (unknown) (no (unknown) (unknown) Date of Service: (units (unknown) date) 05/03/22 unknown) (unknown) (no (unknown) (unknown) Departure (units (unkn own) date) unknown) (unknown) (no (unknown) (unknown) Discharge Plan (units (unknown) date) unknown) (unknown) (no (unknown) (unknown) ED Orders (units (unkn own) date) unknown) (unknown) (no (unknown) (unknown) EKG-12 Lead Stat (units (unknown) date) unknown) (unknown) (no (unknown) (unknown) ER Physician: (units ( unknown) date) Bridgett Fletcher unknown) D.O. (unknown) (no (unknown) (unknown) EXPOSURE (units (unkno wn) date) unknown) (unknown) (no (unknown) (unknown) EXTREMITIES: (units (u nknown) date) Normal range of unknown) motion, no clubbing or edema. Neurovascularly (unknown) (no (unknown) (unknown) Emergency Report (units (unknown) date) unknown) (unknown) (no (unknown) (unknown) Eos # (Auto) 200 (units (unknown) date) (0-450) /uL unknown) (unknown) (no (unknown) (unknown) Eos % (Auto) 3.4 (units (unknown) date) (2-4) % unknown) (unknown) (no (unknown) (unknown) Estimated GFR > (units (unknown) date) 60 (>60) mL/min unknown) (unknown) (no (unknown) (unknown) Exam (units (unkno wn) date) unknown) (unknown) (no (unknown) (unknown) Family History (units (unknown) date) (Reviewed 05/03/22 unknown) @ 12:51 by Bridgett Fletcher DO) (unknown) (no (unknown) (unknown) Father (units (unkno wn) date) Hypertension unknown) (unknown) (no (unknown) (unknown) GASTROINTESTINAL: (units (unknown) date) Denies nausea, unknown) vomiting, abdominal pain, diarrhea, (unknown) (no (unknown) (unknown) GENERAL: Alert (units (unknown) date) 77-year-old male unknown) and in no acute distress. (unknown) (no (unknown) (unknown) GENERAL: Denies (units (unknown) date) chills, fatigue, unknown) malaise, fever, sweats, travel (unknown) (no (unknown) (unknown) : Denies (units (unkn own) date) dysuria, unknown) frequency, incontinence, hematuria, urinary retention, flank (unknown) (no (unknown) (unknown) General (units (unkno wn) date) unknown) (unknown) (no (unknown) (unknown) Globulin 3.0 (units (u nknown) date) (1.7-4.1) g/dL unknown) (unknown) (no (unknown) (unknown) Glucose 155 H (units ( unknown) date) (80-110) mg/dL [...] mucous (unknown) (no (unknown) (unknown) HPI - Chest Pain (units (unknown) date) unknown) (unknown) (no (unknown) (unknown) HPI narrative: (units (unknown) date) unknown) (unknown) (no (unknown) (unknown) Hct 38.4 L (units (unk nown) date) (41-53) % unknown) (unknown) (no (unknown) (unknown) Hgb 13.3 L (units (unk nown) date) (13.5-17.5) g/dL [...] date) cardiomyopathy unknown) (unknown) (no (unknown) (unknown) [facility] (units (unknown) date) [address] unknown) [place] [address] (unknown) (no (unknown) (unknown) JERKING, (units (unkno wn) date) unknown) (unknown) (no (unknown) (unknown) Lab Data (units (unkno wn) date) unknown) (unknown) (no (unknown) (unknown) Lab Results (units (un known) date) unknown) (unknown) (no (unknown) (unknown) Label Comments: (units (unknown) date) unknown) (unknown) (no (unknown) (unknown) Labs: (units (unkno wn) date) unknown) (unknown) (no (unknown) (unknown) Limitations: no (units (unknown) date) limitations unknown) (unknown) (no (unknown) (unknown) Lipase 73 (units (unkn own) date) (23-300) U/L unknown) (unknown) (no (unknown) (unknown) Lipase Stat (units (un known) date) unknown) (unknown) (no (unknown) (unknown) Lymph # (Auto) (units (unknown) date) 1100 (7827-5871) unknown) /uL (unknown) (no (unknown) (unknown) Lymph % (Auto) (units (unknown) date) 16.6 L (25-40) % unknown) (unknown) (no (unknown) (unknown) MCH 30.2 (26-34) (units (unknown) date) PG unknown) (unknown) (no (unknown) (unknown) MCHC 34.6 (30-36) (units (unknown) date) % unknown) (unknown) (no (unknown) (unknown) MCV 87.3 (80-100) (units (unknown) date) fL unknown) (unknown) (no (unknown) (unknown) MDM - Chest Pain (units (unknown) date) unknown) (unknown) (no (unknown) (unknown) MINUTES (units (unkno wn) date) unknown) (unknown) (no (unknown) (unknown) MUSCULOSKELETAL: (units (unknown) date) Denies weakness, unknown) joint pain, or bony pain (unknown) (no (unknown) (unknown) Magnesium 1.9 (units ( unknown) date) (1.6-2.3) mg/dL unknown) (unknown) (no (unknown) (unknown) Magnesium Stat (units (unknown) date) unknown) (unknown) (no (unknown) (unknown) Medical History (units (unknown) date) (Reviewed 05/03/22 unknown) @ 12:51 by Bridgett Fletcher DO) (unknown) (no (unknown) (unknown) Medication (units (unk nown) date) Instructions unknown) Recorded Confirmed (unknown) (no (unknown) (unknown) Medication (units (unk nown) date) Instructions unknown) Recorded (unknown) (no (unknown) (unknown) Mode of arrival: (units (unknown) date) Ambulatory unknown) (unknown) (no (unknown) (unknown) [place] # (Auto) 600 (units (unknown) date) (0-900) /uL unknown) (unknown) (no (unknown) (unknown) [place] % (Auto) 8.8 (units (unknown) date) (3-14) % unknown) (unknown) (no (unknown) (unknown) Mother (units (unknown) date) Stroke unknown) (unknown) (no (unknown) (unknown) NAUSEA W/I (units (unk nown) date) unknown) (unknown) (no (unknown) (unknown) NEUROLOGIC: (units (un known) date) Denies weakness, unknown) dizziness, headache, numbness, change in speech, (unknown) (no (unknown) (unknown) NEUROLOGICAL: (units ( unknown) date) Alert and oriented unknown) x4.Normal gait and speech. (unknown) (no (unknown) (unknown) Narcotic (units (unkno wn) date) dependence unknown) (unknown) (no (unknown) (unknown) Narrative: (units (unk nown) date) unknown) (unknown) (no (unknown) (unknown) Neck pain, (units (unk nown) date) chronic unknown) (unknown) (no (unknown) (unknown) Neut # (Auto) (units ( unknown) date) 4800 (2299-5327) unknown) /uL (unknown) (no (unknown) (unknown) Neut % (Auto) (units ( unknown) date) 70.2 (50-75) % unknown) (unknown) (no (unknown) (unknown) Nitroglycerin (units ( unknown) date) (Nitroglycerin 0.4 unknown) Mg Sl Tab) 0.4 mg SL [id number] PRN (unknown) (no (unknown) (unknown) No Action (units (unkn own) date) unknown) (unknown) (no (unknown) (unknown) Ordered: (units (unkno wn) date) unknown) (unknown) (no (unknown) (unknown) Orders (units (unkno wn) date) unknown) (unknown) (no (unknown) (unknown) Oxygen Delivery (units (unknown) date) Method 05/03/22 unknown) 11:51 (unknown) (no (unknown) (unknown) Oxygen Delivery (units (unknown) date) Method Room Air unknown) Room Air (unknown) (no (unknown) (unknown) PRN Reason: Chest (units (unknown) date) Pain unknown) (unknown) (no (unknown) (unknown) PSYCHIATRIC: No (units (unknown) date) concerning unknown) psychosocial issues. (unknown) (no (unknown) (unknown) Patient History (units (unknown) date) unknown) (unknown) (no (unknown) (unknown) Patient is a (units (u nknown) date) 77-year-old male unknown) history of CABG aortic dissection, diabetes, (unknown) (no (unknown) (unknown) Patient: (units (unkno wn) date) Dominic Viveros unknown) MR#: M (unknown) (no (unknown) (unknown) Plt Count 188 (units ( unknown) date) (150-400) X103/uL unknown) (unknown) (no (unknown) (unknown) Potassium 4.0 (units ( unknown) date) (3.4-5.1) mmol/L unknown) (unknown) (no (unknown) (unknown) Prescriptions: (units (unknown) date) unknown) (unknown) (no (unknown) (unknown) Previous Rx's (units ( unknown) date) unknown) (unknown) (no (unknown) (unknown) Pulse Oximetry 96 (units (unknown) date) 05/03/22 11:51 unknown) (unknown) (no (unknown) (unknown) Pulse Oximetry 96 (units (unknown) date) 99 unknown) (unknown) (no (unknown) (unknown) Pulse Rate 65 (units ( unknown) date) 05/03/22 11:51 unknown) (unknown) (no (unknown) (unknown) Pulse Rate 65 65 (units (unknown) date) unknown) (unknown) (no (unknown) (unknown) RBC 4.40 L (units (unk nown) date) (4.5-5.9) X106/uL unknown) (unknown) (no (unknown) (unknown) RDW 13.6 (units (unkno wn) date) (11.6-14.8) % unknown) [...] (unknown) Respiratory Rate (units (unknown) date) 18 05/03/22 11:51 unknown) (unknown) (no (unknown) (unknown) Respiratory Rate (units (unknown) date) 18 18 unknown) (unknown) (no (unknown) (unknown) Result diagrams: (units (unknown) date) unknown) (unknown) (no (unknown) (unknown) Review of Systems (units (unknown) date) unknown) (unknown) (no (unknown) (unknown) Rx [...] (unknown) Social History (units (unknown) date) (Reviewed 05/03/22 unknown) @ 12:51 by Bridgett Fletcher DO) (unknown) (no (unknown) (unknown) Sodium 137 (units (unk nown) date) (137-145) mmol/L unknown) (unknown) (no (unknown) (unknown) Source: patient (units (unknown) date) unknown) (unknown) (no (unknown) (unknown) Stated Complaint: (units (unknown) date) Chest pains, Pain unknown) in arm (unknown) (no (unknown) (unknown) [id number] (units (unknown) date) Reductase AdvReac unknown) Mild WEAK Verified 05/03/22 11:58 (unknown) (no (unknown) (unknown) Substance Use (units ( unknown) date) Type: does not use unknown) (unknown) (no (unknown) (unknown) Sulfa (units (unkno wn) date) (Sulfonamide unknown) Allergy Mild RASH Verified 05/03/22 11:58 (unknown) (no (unknown) (unknown) Surgical History (units (unknown) date) (Reviewed 05/03/22 unknown) @ 12:51 by Bridgett Fletcher DO) (unknown) (no (unknown) (unknown) Temperature 98.4 (units (unknown) date) F 05/03/22 11:51 unknown) (unknown) (no (unknown) (unknown) Temperature 98.4 (units (unknown) date) F unknown) (unknown) (no (unknown) (unknown) Time Seen by (units (u nknown) date) Provider: 05/03/22 unknown) 12:16 (unknown) (no (unknown) (unknown) Total Bilirubin (units (unknown) date) 0.3 (0.2-1.3) unknown) mg/dL (unknown) (no (unknown) (unknown) Total Creatine (units (unknown) date) Kinase 103 unknown) (55-170) U/L (unknown) (no (unknown) (unknown) Total Protein 6.8 (units (unknown) date) (6.3-8.2) g/dL unknown) (unknown) (no (unknown) (unknown) Troponin + CK (units ( unknown) date) Cardiac Panel Stat unknown) (unknown) (no (unknown) (unknown) Ventricular (units (un known) date) bigeminy unknown) (unknown) (no (unknown) (unknown) Vital Signs - 8 (units (unknown) date) hr unknown) (unknown) (no (unknown) (unknown) Vital Signs (units (un known) date) unknown) (unknown) (no (unknown) (unknown) Vital signs: (units (u nknown) date) unknown) (unknown) (no (unknown) (unknown) W/EXTENDED (units (unk nown) date) unknown) (unknown) (no (unknown) (unknown) WBC 6.8 (units (unkno wn) date) (4.5-11.0) X103/uL unknown) (unknown) (no (unknown) (unknown) XR chest 1V Stat (units (unknown) date) unknown) (unknown) (no (unknown) (unknown) Zyrtec 10 mg (units (u nknown) date) Capsule unknown) (unknown) (no (unknown) (unknown) [Embedded Image (units (unknown) date) Not Available] unknown) (unknown) (no (unknown) (unknown) [[id number] (units (unknown) date) REDUCTASE unknown) (unknown) (no (unknown) (unknown) [SULFA (units (unkno wn) date) (SULFONAMIDE unknown) (unknown) (no (unknown) (unknown) acetaminophen 300 (units (unknown) date) mg-codeine 30 mg 2 unknown) tab PO Q4H PRN Pain (Scale Score 02/03/22 (unknown) (no (unknown) (unknown) acetaminophen-cod (units (unknown) date) eine 300-30 mg unknown) tablet (unknown) (no (unknown) (unknown) alcohol intake (units (unknown) date) frequency: 0-2 unknown) drinks per day (unknown) (no (unknown) (unknown) alcohol intake: (units (unknown) date) current unknown) (unknown) (no (unknown) (unknown) buprenorphine (units ( unknown) date) [BUPRENORPHINE] unknown) AdvReac Mild NAUSEA, Verified 05/03/22 11:58 (unknown) (no (unknown) (unknown) caps (units (unkno wn) date) unknown) (unknown) (no (unknown) (unknown) celecoxib (units (unkn own) date) [CELECOXIB] unknown) Allergy Mild SWELLING Verified 05/03/22 11:58 (unknown) (no (unknown) (unknown) cetirizine 10 mg (units (unknown) date) capsule (Zyrtec) unknown) 10 mg PO DAILY 05/22/19 02/03/22 (unknown) (no (unknown) (unknown) clonidine HCl 0.1 (units (unknown) date) mg tablet 0.2 mg unknown) PO BID 12/08/21 02/03/22 (unknown) (no (unknown) (unknown) clonidine HCl 0.1 (units (unknown) date) mg tablet unknown) (unknown) (no (unknown) (unknown) confusion (units (unkn own) date) unknown) (unknown) (no (unknown) (unknown) constipation, (units ( unknown) date) melena. unknown) (unknown) (no (unknown) (unknown) diazepam [From (units (unknown) date) Valium] Allergy unknown) Severe Confusion Verified 05/03/22 11:58 (unknown) (no (unknown) (unknown) docusate sodium (units (unknown) date) 100 mg Capsule unknown) (unknown) (no (unknown) (unknown) docusate sodium (units (unknown) date) 100 mg capsule 100 unknown) mg PO BID PRN constipation #60 02/07/22 (unknown) (no (unknown) (unknown) fentanyl AdvReac (units (unknown) date) Severe Confusion unknown) Verified 05/03/22 11:58 (unknown) (no (unknown) (unknown) ferrous sulfate (units (unknown) date) 325 mg (65 mg 325 unknown) mg PO DAILY 10/19/19 02/03/22 (unknown) (no (unknown) (unknown) ferrous sulfate (units (unknown) date) 325 mg (65 mg unknown) iron) tablet,delayed release (DR/EC) (unknown) (no (unknown) (unknown) few months (units (unk nown) date) however last 3 unknown) days is becoming more constant. It starts in the left (unknown) (no (unknown) (unknown) fluticasone (units (un known) date) propionate 16 GM unknown) spray,suspension (unknown) (no (unknown) (unknown) fluticasone (units (un known) date) propionate 50 1 unknown) spray intranasal DAILY PRN 11/02/17 02/03/22 (unknown) (no (unknown) (unknown) furosemide 40 mg (units (unknown) date) tablet 40 mg PO unknown) DAILY 02/03/22 02/03/22 (unknown) (no (unknown) (unknown) furosemide 40 mg (units (unknown) date) tablet unknown) (unknown) (no (unknown) (unknown) glipizide 2.5 mg (units (unknown) date) tablet, extended unknown) 2.5 mg PO DAILY 10/08/21 02/03/22 (unknown) (no (unknown) (unknown) glipizide (units (unkn own) date) [Glucotrol XL] 2.5 unknown) mg tablet extended release 24 hr (unknown) (no (unknown) (unknown) guarding or (units (un known) date) rebound. unknown) (unknown) (no (unknown) (unknown) household (units (unkn own) date) members: spouse unknown) (unknown) (no (unknown) (unknown) hydromorphone (units ( unknown) date) [From Dilaudid] unknown) Allergy Severe Hallucinating, Verified 05/03/22 (unknown) (no (unknown) (unknown) hyoscyamine (units (un known) date) [HYOSCYAMINE] unknown) AdvReac Mild LEG Verified 05/03/22 11:58 (unknown) (no (unknown) (unknown) inhaler and that (units (unknown) date) helps. He is unknown) followed by cardiology up at [facility]. He (unknown) (no (unknown) (unknown) intact (units (unkno wn) date) unknown) (unknown) (no (unknown) (unknown) iron) (units (unkno wn) date) tablet,delayed unknown) release (unknown) (no (unknown) (unknown) is not (units (unkno wn) date) reproducible to unknown) palpation (unknown) (no (unknown) (unknown) latex [LATEX] (units ( unknown) date) Allergy Mild RASH unknown) Verified 05/03/22 11:58 (unknown) (no (unknown) (unknown) levalbuterol (units (u nknown) date) tartrate 45 1 puff unknown) inhalation Q4-6H PRN 06/22/18 (unknown) (no (unknown) (unknown) levalbuterol (units (u nknown) date) tartrate [Xopenex unknown) HFA] 45 mcg/actuation HFA aerosol inhaler (unknown) (no (unknown) (unknown) lisinopril 10 mg (units (unknown) date) tablet 10 mg PO unknown) DAILY 12/08/21 02/03/22 (unknown) (no (unknown) (unknown) lisinopril 10 mg (units (unknown) date) tablet unknown) (unknown) (no (unknown) (unknown) mcg/actuation (units ( unknown) date) aerosol inhaler unknown) shortness of breath or wheezing (unknown) (no (unknown) (unknown) mcg/actuation (units ( unknown) date) nasal Allergy unknown) Symptoms ##0 (unknown) (no (unknown) (unknown) meclizine 25 mg (units (unknown) date) tablet 25 mg PO unknown) QID PRN vertigo #30 tabs 10/09/21 (unknown) (no (unknown) (unknown) meclizine 25 mg (units (unknown) date) tablet unknown) (unknown) (no (unknown) (unknown) membranes (units (unkn own) date) unknown) (unknown) (no (unknown) (unknown) metoprolol (units (unk nown) date) succinate 100 mg unknown) 100 mg PO DAILY 02/03/22 02/03/22 (unknown) (no (unknown) (unknown) metoprolol (units (unk nown) date) succinate 100 mg unknown) Tablet Extended Release 24 Hr (unknown) (no (unknown) (unknown) mind' (units (unkno wn) date) unknown) (unknown) (no (unknown) (unknown) montelukast 10 mg (units (unknown) date) Tablet unknown) (unknown) (no (unknown) (unknown) montelukast 10 mg (units (unknown) date) tablet 10 mg PO unknown) DAILY 02/03/22 02/03/22 (unknown) (no (unknown) (unknown) morphine Allergy (units (unknown) date) Severe unknown) Hallucinating, Verified 05/03/22 11:58 (unknown) (no (unknown) (unknown) multivitamin (units (u nknown) date) (Multiple Vitamins unknown) 1 tab PO DAILY ##0 12/20/16 02/03/22 (unknown) (no (unknown) (unknown) multivitamin (units (u nknown) date) [Multiple unknown) Vitamins] 1 EACH tablet (unknown) (no (unknown) (unknown) out of his (units (unk nown) date) unknown) (unknown) (no (unknown) (unknown) oxycodone 5 mg (units (unknown) date) tablet 5 mg PO Q4H unknown) PRN pain, moderate #60 02/07/22 (unknown) (no (unknown) (unknown) oxycodone 5 mg (units (unknown) date) tablet unknown) (unknown) (no (unknown) (unknown) pain (units (unkno wn) date) unknown) (unknown) (no (unknown) (unknown) pain. (units (unkno wn) date) unknown) (unknown) (no (unknown) (unknown) presents today (units (unknown) date) with sharp unknown) stabbing chest pain. He says it also off and on for a (unknown) (no (unknown) (unknown) previously had a (units (unknown) date) stress test 3 unknown) years ago. (unknown) (no (unknown) (unknown) release 24 hr (units ( unknown) date) (Glucotrol XL) unknown) (unknown) (no (unknown) (unknown) side of his chest (units (unknown) date) to go straight unknown) through to his back. He denies nausea or (unknown) (no (unknown) (unknown) spray,suspension (units (unknown) date) unknown) (unknown) (no (unknown) (unknown) substance use (units ( unknown) date) type: does not use unknown) (unknown) (no (unknown) (unknown) tablet 4-6) (units (un known) date) unknown) (unknown) (no (unknown) (unknown) tablet) (units (unkno wn) date) unknown) (unknown) (no (unknown) (unknown) tablet,extended (units (unknown) date) release 24 hr unknown) (unknown) (no (unknown) (unknown) tabs (units (unkno wn) date) unknown) (unknown) (no (unknown) (unknown) take 1 tablet by (units (unknown) date) mouth once daily unknown) (unknown) (no (unknown) (unknown) trazodone 100 mg (units (unknown) date) tablet 400 tab PO unknown) BEDTIME 30 days #120 12/10/21 (unknown) (no (unknown) (unknown) trazodone 100 mg (units (unknown) date) tablet unknown) (unknown) (no (unknown) (unknown) varenicline (units (un known) date) [VARENICLINE] unknown) AdvReac Severe Paranoia Verified 05/03/22 11:58 (unknown) (no (unknown) (unknown) vomiting. (units (unkn own) date) Sometimes has unknown) shortness of breath but frequently needs his albuterol Result panel 9 (unknown) (no date) (unknown) (unknown) > 60 ml/min (unkn own) (unknown) (no date) (unknown) (unknown) > 60 ml/min (unkn own) (unknown) (no date) (unknown) (unknown) < 0.012 ng/ml (unkn own) (unknown) (no date) (unknown) (unknown) < 0.012 ng/ml (unkn own) (unknown) (no date) (unknown) (unknown) 0.3 mg/dl (unkn own) (unknown) (no date) (unknown) (unknown) 0.70 mg/dl (unkn own) (unknown) (no date) (unknown) (unknown) 1.3 (units (unkn own) unknown) (unknown) (no date) (unknown) (unknown) 1.9 mg/dl (unkn own) (unknown) (no date) (unknown) (unknown) 102 mmol/l (unkn own) (unknown) (no date) (unknown) (unknown) 103 u/l (unkn own) (unknown) (no date) (unknown) (unknown) 137 mmol/l (unkn own) (unknown) (no date) (unknown) (unknown) 155 mg/dl (unkn own) (unknown) (no date) (unknown) (unknown) 155 mg/dl (unkn own) (unknown) (no date) (unknown) (unknown) 17 mg/dl (unkn own) (unknown) (no date) (unknown) (unknown) 24.3 (units (unkn own) unknown) (unknown) (no date) (unknown) (unknown) 25 mmol/l (unkn own) (unknown) (no date) (unknown) (unknown) 26 iu/l (unkn own) (unknown) (no date) (unknown) (unknown) 3.0 g/dl (unkn own) (unknown) (no date) (unknown) (unknown) 3.8 g/dl (unkn own) (unknown) (no date) (unknown) (unknown) 30 iu/l (unkn own) (unknown) (no date) (unknown) (unknown) 4.0 mmol/l (unkn own) (unknown) (no date) (unknown) (unknown) 6.8 g/dl (unkn own) (unknown) (no date) (unknown) (unknown) 73 u/l (unkn own) (unknown) (no date) (unknown) (unknown) 8.8 mg/dl (unkn own) (unknown) (no date) (unknown) (unknown) 95 u/l (unkn own) Result panel 10 (unknown) (no date) (unknown) (unknown) > 60 ml/min (unkn own) (unknown) (no date) (unknown) (unknown) > 60 ml/min (unkn own) (unknown) (no date) (unknown) (unknown) < 0.012 ng/ml (unkn own) (unknown) (no date) (unknown) (unknown) < 0.012 ng/ml (unkn own) (unknown) (no date) (unknown) (unknown) 0.3 mg/dl (unkn own) (unknown) (no date) (unknown) (unknown) 0.70 mg/dl (unkn own) (unknown) (no date) (unknown) (unknown) 1.3 (units (unkn own) unknown) (unknown) (no date) (unknown) (unknown) 1.9 mg/dl (unkn own) (unknown) (no date) (unknown) (unknown) 102 mmol/l (unkn own) (unknown) (no date) (unknown) (unknown) 103 u/l (unkn own) (unknown) (no date) (unknown) (unknown) 137 mmol/l (unkn own) (unknown) (no date) (unknown) (unknown) 155 mg/dl (unkn own) (unknown) (no date) (unknown) (unknown) 155 mg/dl (unkn own) (unknown) (no date) (unknown) (unknown) 17 mg/dl (unkn own) (unknown) (no date) (unknown) (unknown) 24.3 (units (unkn own) unknown) (unknown) (no date) (unknown) (unknown) 25 mmol/l (unkn own) (unknown) (no date) (unknown) (unknown) 26 iu/l (unkn own) (unknown) (no date) (unknown) (unknown) 3.0 g/dl (unkn own) (unknown) (no date) (unknown) (unknown) 3.8 g/dl (unkn own) (unknown) (no date) (unknown) (unknown) 30 iu/l (unkn own) (unknown) (no date) (unknown) (unknown) 4.0 mmol/l (unkn own) (unknown) (no date) (unknown) (unknown) 4.3 % (unkn own) (unknown) (no date) (unknown) (unknown) 4.44 ng/ml (unkn own) (unknown) (no date) (unknown) (unknown) 6.8 g/dl (unkn own) (unknown) (no date) (unknown) (unknown) 73 u/l (unkn own) (unknown) (no date) (unknown) (unknown) 8.8 mg/dl (unkn own) (unknown) (no date) (unknown) (unknown) 95 u/l (unkn own) Result panel 11 (unknown) (no date) (unknown) (unknown) Negative (units (unkn own) unknown) (unknown) (no date) (unknown) (unknown) Negative (units (unkn own) unknown) Result panel 12 (unknown) (no date) (unknown) (unknown) < 0.012 ng/ml (unkn own) (unknown) (no date) (unknown) (unknown) < 0.012 ng/ml (unkn own) Result panel 13 (unknown) (no (unknown) (unknown) (no value) (units (unk nown) date) unknown) (unknown) (no (unknown) (unknown) 'He gets (units (unkno wn) date) unknown) (unknown) (no (unknown) (unknown) (Xopenex HFA) #15 (units (unknown) date) grams unknown) (unknown) (no (unknown) (unknown) 0.2 mg PO BID (units ( unknown) date) unknown) (unknown) (no (unknown) (unknown) [phone] (units (unkn own) date) unknown) (unknown) (no (unknown) (unknown) 02/03/22 (units (unkno wn) date) unknown) (unknown) (no (unknown) (unknown) 05/03/22 05/03/22 (units (unknown) date) 05/03/22 unknown) Range/Units (unknown) (no (unknown) (unknown) 05/03/22 12:01 (units (unknown) date) unknown) (unknown) (no (unknown) (unknown) 05/03/22 12:07 (units (unknown) date) unknown) (unknown) (no (unknown) (unknown) 05/03/22 12:45 (units (unknown) date) unknown) (unknown) (no (unknown) (unknown) 05/03/22 13:18 (units (unknown) date) unknown) (unknown) (no (unknown) (unknown) 05/03/22 14:25 (units (unknown) date) unknown) (unknown) (no (unknown) (unknown) 05/03/22 15:52 (units (unknown) date) unknown) (unknown) (no (unknown) (unknown) 05/03/22 (units (unkno wn) date) Range/Units unknown) (unknown) (no (unknown) (unknown) 05/03/22 (units (unkno wn) date) unknown) (unknown) (no (unknown) (unknown) 0RF (units (unkno wn) date) unknown) (unknown) (no (unknown) (unknown) 1 [...] (unknown) date) unknown) (unknown) (no (unknown) (unknown) 11:51 05/03/22 (units (unknown) date) unknown) (unknown) (no (unknown) (unknown) 11:58 (units (unkno wn) date) unknown) (unknown) (no (unknown) (unknown) 12 point review (units (unknown) date) of systems is unknown) negative except for those stated above and HPI (unknown) (no (unknown) (unknown) 12:07 12:07 13:18 (units (unknown) date) unknown) (unknown) (no (unknown) (unknown) 12:18 05/03/22 (units (unknown) date) unknown) (unknown) (no (unknown) (unknown) 12:26 05/03/22 (units (unknown) date) unknown) (unknown) (no (unknown) (unknown) 12:30 05/03/22 (units (unknown) date) unknown) (unknown) (no (unknown) (unknown) 12:30 (units (unkno wn) date) unknown) (unknown) (no (unknown) (unknown) 12:45 05/03/22 (units (unknown) date) unknown) (unknown) (no (unknown) (unknown) 13:06 (units (unkno wn) date) unknown) (unknown) (no (unknown) (unknown) 13:07 05/03/22 (units (unknown) date) unknown) (unknown) (no (unknown) (unknown) 13:15 05/03/22 (units (unknown) date) unknown) (unknown) (no (unknown) (unknown) 13:15 (units (unkno wn) date) unknown) (unknown) (no (unknown) (unknown) 13:25 05/03/22 (units (unknown) date) unknown) (unknown) (no (unknown) (unknown) 13:25 (units (unkno wn) date) unknown) (unknown) (no (unknown) (unknown) 13:27 (units (unkno wn) date) unknown) (unknown) (no (unknown) (unknown) 13:30 05/03/22 (units (unknown) date) unknown) (unknown) (no (unknown) (unknown) 13:30 (units (unkno wn) date) unknown) (unknown) (no (unknown) (unknown) 13:46 05/03/22 (units (unknown) date) unknown) (unknown) (no (unknown) (unknown) 13:58 05/03/22 (units (unknown) date) unknown) (unknown) (no (unknown) (unknown) 13:58 (units (unkno wn) date) unknown) (unknown) (no (unknown) (unknown) 14:00 05/03/22 (units (unknown) date) unknown) (unknown) (no (unknown) (unknown) 14:16 05/03/22 (units (unknown) date) unknown) (unknown) (no (unknown) (unknown) 14:16 (units (unkno wn) date) unknown) (unknown) (no (unknown) (unknown) 14:25 (units (unkno wn) date) unknown) (unknown) (no (unknown) (unknown) 14:30 05/03/22 (units (unknown) date) unknown) (unknown) (no (unknown) (unknown) 14:30 (units (unkno wn) date) unknown) (unknown) (no (unknown) (unknown) 14:45 05/03/22 (units (unknown) date) unknown) (unknown) (no (unknown) (unknown) 15:00 05/03/22 (units (unknown) date) unknown) (unknown) (no (unknown) (unknown) 15:00 (units (unkno wn) date) unknown) (unknown) (no (unknown) (unknown) 15:15 05/03/22 (units (unknown) date) unknown) (unknown) (no (unknown) (unknown) 15:15 (units (unkno wn) date) unknown) (unknown) (no (unknown) (unknown) 15:30 05/03/22 (units (unknown) date) unknown) (unknown) (no (unknown) (unknown) 15:45 05/03/22 (units (unknown) date) unknown) (unknown) (no (unknown) (unknown) 15:45 (units (unkno wn) date) unknown) (unknown) (no (unknown) (unknown) 16:00 05/03/22 (units (unknown) date) unknown) (unknown) (no (unknown) (unknown) 16:00 (units (unkno wn) date) unknown) (unknown) (no (unknown) (unknown) 16:15 05/03/22 (units (unknown) date) unknown) (unknown) (no (unknown) (unknown) 16:30 (units (unkno wn) date) unknown) (unknown) (no (unknown) (unknown) 2 [...] Qty: 60 0RF (unknown) (no (unknown) (unknown) ABDOMEN: Soft, (units (unknown) date) nontender. unknown) Normoactive bowel sounds all 4 quadrants. No (unknown) (no (unknown) (unknown) ALT (<50) IU/L (units (unknown) date) unknown) (unknown) (no (unknown) (unknown) ALT 26 (<50) IU/L (units (unknown) date) unknown) (unknown) (no (unknown) (unknown) ANTIBIOTICS)] (units ( unknown) date) unknown) (unknown) (no (unknown) (unknown) ANXIETY, (units (unkno wn) date) unknown) (unknown) (no (unknown) (unknown) AST (17-59) IU/L (units (unknown) date) unknown) (unknown) (no (unknown) (unknown) AST 30 (17-59) (units (unknown) date) IU/L unknown) (unknown) (no (unknown) (unknown) Acetaminophen (units ( unknown) date) (Acetaminophen 325 unknown) Mg Tablet) 975 mg PO NOW ONE (unknown) (no (unknown) (unknown) Achalasia (units (unkn own) date) unknown) (unknown) (no (unknown) (unknown) Admin: 05/03/22 (units (unknown) date) 13:27 Dose: 0.4 mg unknown) (unknown) (no (unknown) (unknown) Age/Sex: 77 / M (units (unknown) date) unknown) (unknown) (no (unknown) (unknown) Albumin (3.5-5.0) (units (unknown) date) g/dL unknown) (unknown) (no (unknown) (unknown) Albumin 3.8 (units (un known) date) (3.5-5.0) g/dL unknown) (unknown) (no (unknown) (unknown) Albumin/Globulin (units (unknown) date) Ratio (1.0-2.8) unknown) (unknown) (no (unknown) (unknown) Albumin/Globulin (units (unknown) date) Ratio 1.3 unknown) (1.0-2.8) (unknown) (no (unknown) (unknown) Alkaline (units (unkno wn) date) Phosphatase unknown) (38-126) U/L (unknown) (no (unknown) (unknown) Alkaline (units (unkno wn) date) Phosphatase 95 unknown) (38-126) U/L (unknown) (no (unknown) (unknown) Allergies (units (unkn own) date) unknown) (unknown) (no (unknown) (unknown) Allergy/AdvReac [...] date) unknown) (unknown) (no (unknown) (unknown) BUN 17 (9-20) (units ( unknown) date) mg/dL unknown) (unknown) (no (unknown) (unknown) BUN/Creatinine (units (unknown) date) Ratio (6-22) unknown) (unknown) (no (unknown) (unknown) BUN/Creatinine (units (unknown) date) Ratio 24.3 H unknown) (6-22) (unknown) (no (unknown) (unknown) Baso # (Auto) (units ( unknown) date) (0-100) /uL unknown) (unknown) (no (unknown) (unknown) Baso # (Auto) 100 (units (unknown) date) (0-100) /uL unknown) (unknown) (no (unknown) (unknown) Baso % (Auto) (units ( unknown) date) (0-2) % unknown) (unknown) (no (unknown) (unknown) Baso % (Auto) 1.0 (units (unknown) date) (0-2) % unknown) (unknown) (no (unknown) (unknown) Blood Pressure (units (unknown) date) 151/87 H unknown) (unknown) (no (unknown) (unknown) Blood Pressure (units (unknown) date) 159/81 H unknown) (unknown) (no (unknown) (unknown) Blood Pressure (units (unknown) date) 165/88 H 176/82 H unknown) (unknown) (no (unknown) (unknown) Blood Pressure (units (unknown) date) 171/81 H unknown) (unknown) (no (unknown) (unknown) Blood Pressure (units (unknown) date) 174/72 H 197/84 H unknown) (unknown) (no (unknown) (unknown) Blood Pressure (units (unknown) date) 176/82 H 183/78 H unknown) (unknown) (no (unknown) (unknown) Blood Pressure (units (unknown) date) 180/89 H unknown) (unknown) (no (unknown) (unknown) Blood Pressure (units (unknown) date) 185/95 H unknown) (unknown) (no (unknown) (unknown) Blood Pressure (units (unknown) date) 187/88 H unknown) (unknown) (no (unknown) (unknown) Blood Pressure (units (unknown) date) 189/87 H unknown) (unknown) (no (unknown) (unknown) Blood Pressure (units (unknown) date) 196/90 H 193/86 H unknown) (unknown) (no (unknown) (unknown) Blood Pressure (units (unknown) date) 199/90 H 185/89 H unknown) (unknown) (no (unknown) (unknown) Blood Pressure (units (unknown) date) 200/86 H 181/92 H unknown) (unknown) (no (unknown) (unknown) Blood Pressure (units (unknown) date) 210/90 H 05/03/ unknown) 11:51 (unknown) (no (unknown) (unknown) Blood Pressure (units (unknown) date) 210/90 H 176/94 H unknown) 187/88 H (unknown) (no (unknown) (unknown) Blood Pressure (units (unknown) date) unknown) (unknown) (no (unknown) (unknown) CARDIOVASCULAR: (units (unknown) date) Regular rate and unknown) rhythm without murmurs, rubs or gallops. Pain (unknown) (no (unknown) (unknown) CARDIOVASCULAR: (units (unknown) date) See HPI unknown) (unknown) (no (unknown) (unknown) CK-MB (CK-2) (units (u nknown) date) (<2.37) ng/mL unknown) (unknown) (no (unknown) (unknown) CK-MB (CK-2) 4.44 (units (unknown) date) H (<2.37) ng/mL unknown) (unknown) (no (unknown) (unknown) CK-MB (CK-2) Rel (units (unknown) date) Index (1.5-5.0) % unknown) (unknown) (no (unknown) (unknown) CK-MB (CK-2) Rel (units (unknown) date) Index 4.3 unknown) (1.5-5.0) % (unknown) (no (unknown) (unknown) COPD (chronic (units ( unknown) date) obstructive unknown) pulmonary disease) (unknown) (no (unknown) (unknown) COVID19 -Nasal (units (unknown) date) RAPID/Pre-Proc unknown) Stat (unknown) (no (unknown) (unknown) CT angio chest (units (unknown) date) abdomen pelvis unknown) Stat (unknown) (no (unknown) (unknown) Calcium (units (unkno wn) date) (8.4-10.2) mg/dL unknown) (unknown) (no (unknown) (unknown) Calcium 8.8 (units (un known) date) (8.4-10.2) mg/dL unknown) (unknown) (no (unknown) (unknown) Carbon Dioxide (units (unknown) date) (22-32) mmol/L unknown) (unknown) (no (unknown) (unknown) Carbon Dioxide 25 (units (unknown) date) (22-32) mmol/L unknown) (unknown) (no (unknown) (unknown) Cervical spinal (units (unknown) date) stenosis unknown) (unknown) (no (unknown) (unknown) Chief Complaint: (units (unknown) date) Chest Pain unknown) (unknown) (no (unknown) (unknown) Chloride (98-107) [...] mg/dL unknown) (unknown) (no (unknown) (unknown) Creatinine 0.70 (units (unknown) date) (0.66-1.25) mg/dL unknown) (unknown) (no (unknown) (unknown) DIZZINESS (units (unkn own) date) unknown) (unknown) (no (unknown) (unknown) : 1945 (units (unknown) date) Acct:[id number] unknown) (unknown) (no (unknown) (unknown) Kimmy Gomez, (units (unknown) date) MD [Primary Care unknown) Provider] (unknown) (no (unknown) (unknown) Date of Service: (units (unknown) date) 05/03/22 unknown) (unknown) (no (unknown) (unknown) Departure (units (unkn own) date) unknown) (unknown) (no (unknown) (unknown) Discharge Plan (units (unknown) date) unknown) (unknown) (no (unknown) (unknown) Discontinued (units (u nknown) date) Medications unknown) (unknown) (no (unknown) (unknown) Documented By: ADDIE (units (unknown) date) unknown) (unknown) (no (unknown) (unknown) ED Orders (units (unkn own) date) unknown) (unknown) (no (unknown) (unknown) EKG-12 Lead (units (un known) date) Routine unknown) (unknown) (no (unknown) (unknown) EKG-12 Lead Stat (units (unknown) date) unknown) (unknown) (no (unknown) (unknown) ER Physician: (units ( unknown) date) Bridgett Fletcher unknown) D.O. (unknown) (no (unknown) (unknown) EXPOSURE (units (unkno wn) date) unknown) (unknown) (no (unknown) (unknown) EXTREMITIES: (units (u nknown) date) Normal range of unknown) motion, no clubbing or edema. Neurovascularly (unknown) (no (unknown) (unknown) Emergency Report (units (unknown) date) unknown) (unknown) (no (unknown) (unknown) Eos # (Auto) (units (u nknown) date) (0-450) /uL unknown) (unknown) (no (unknown) (unknown) Eos # (Auto) 200 (units (unknown) date) (0-450) /uL unknown) (unknown) (no (unknown) (unknown) Eos % (Auto) (units (u nknown) date) (2-4) % unknown) (unknown) (no (unknown) (unknown) Eos % (Auto) 3.4 (units (unknown) date) (2-4) % unknown) (unknown) (no (unknown) (unknown) Estimated GFR > (units (unknown) date) 60 (>60) mL/min unknown) (unknown) (no (unknown) (unknown) Estimated GFR (units ( unknown) date) (>60) mL/min unknown) (unknown) (no (unknown) (unknown) Exam (units (unkno wn) date) unknown) (unknown) (no (unknown) (unknown) Family History (units (unknown) date) (Reviewed 05/03/22 unknown) @ 12:51 by Bridgett Fletcher DO) (unknown) (no (unknown) (unknown) Father (units (unkno wn) date) Hypertension unknown) (unknown) (no (unknown) (unknown) GASTROINTESTINAL: (units (unknown) date) Denies nausea, unknown) vomiting, abdominal pain, diarrhea, (unknown) (no (unknown) (unknown) GENERAL: Alert (units (unknown) date) 77-year-old male unknown) and in no acute distress. (unknown) (no [...] g/dL unknown) (unknown) (no (unknown) (unknown) Globulin 3.0 (units (u nknown) date) (1.7-4.1) g/dL unknown) (unknown) (no (unknown) (unknown) Glucose (80-110) (units (unknown) date) mg/dL unknown) (unknown) (no (unknown) (unknown) Glucose 155 H (units ( unknown) date) (80-110) mg/dL [...] mucous (unknown) (no (unknown) (unknown) HPI - Chest Pain (units (unknown) date) unknown) (unknown) (no (unknown) (unknown) HPI narrative: (units (unknown) date) unknown) (unknown) (no (unknown) (unknown) Hct (41-53) % (units ( unknown) date) unknown) (unknown) (no (unknown) (unknown) Hct 38.4 L (units (unk nown) date) (41-53) % unknown) (unknown) (no (unknown) (unknown) Hgb (13.5-17.5) (units (unknown) date) g/dL unknown) (unknown) (no (unknown) (unknown) Hgb 13.3 L (units (unk nown) date) (13.5-17.5) g/dL [...] date) cardiomyopathy unknown) (unknown) (no (unknown) (unknown) [facility] (units (unknown) date) [address] unknown) [place] [address] (unknown) (no (unknown) (unknown) JERKING, (units (unkno wn) date) unknown) (unknown) (no (unknown) (unknown) Lab Data (units (unkno wn) date) unknown) (unknown) (no (unknown) (unknown) Lab Results (units (un known) date) unknown) (unknown) (no (unknown) (unknown) Label Comments: (units (unknown) date) unknown) (unknown) (no (unknown) (unknown) Labs: (units (unkno wn) date) unknown) (unknown) (no (unknown) (unknown) Last Admin: (units (un known) date) 05/03/22 13:58 unknown) Dose: 0.4 mg (unknown) (no (unknown) (unknown) Last Admin: (units (un known) date) 05/03/22 14:22 unknown) Dose: 975 mg (unknown) (no (unknown) (unknown) Limitations: no (units (unknown) date) limitations unknown) (unknown) (no (unknown) (unknown) Lipase (23-300) (units (unknown) date) U/L unknown) (unknown) (no (unknown) (unknown) Lipase 73 (units (unkn own) date) (23-300) U/L unknown) (unknown) (no (unknown) (unknown) Lipase Stat (units (un known) date) unknown) (unknown) (no (unknown) (unknown) Lymph # (Auto) (units (unknown) date) (1879-1743) /uL unknown) (unknown) (no (unknown) (unknown) Lymph # (Auto) (units (unknown) date) 1100 (7349-4130) unknown) /uL (unknown) (no (unknown) (unknown) Lymph % (Auto) (units (unknown) date) (25-40) % unknown) (unknown) (no (unknown) (unknown) Lymph % (Auto) (units (unknown) date) 16.6 L (25-40) % unknown) (unknown) (no (unknown) (unknown) MCH (26-34) PG (units (unknown) date) unknown) (unknown) (no (unknown) (unknown) MCH 30.2 (26-34) (units (unknown) date) PG unknown) (unknown) (no (unknown) (unknown) MCHC (30-36) % (units (unknown) date) unknown) (unknown) (no (unknown) (unknown) MCHC 34.6 (30-36) (units (unknown) date) % unknown) (unknown) (no (unknown) (unknown) MCV (80-100) fL (units (unknown) date) unknown) (unknown) (no (unknown) (unknown) MCV 87.3 (80-100) (units (unknown) date) fL unknown) (unknown) (no (unknown) (unknown) MDM - Chest Pain (units (unknown) date) unknown) (unknown) (no (unknown) (unknown) MINUTES (units (unkno wn) date) unknown) (unknown) (no (unknown) (unknown) MUSCULOSKELETAL: (units (unknown) date) Denies weakness, unknown) joint pain, or bony pain (unknown) (no (unknown) (unknown) Magnesium (units (unkn own) date) (1.6-2.3) mg/dL unknown) (unknown) (no (unknown) (unknown) Magnesium 1.9 (units ( unknown) date) (1.6-2.3) mg/dL unknown) (unknown) (no (unknown) (unknown) Magnesium Stat (units (unknown) date) unknown) (unknown) (no (unknown) (unknown) Medical History (units (unknown) date) (Reviewed 05/03/22 unknown) @ 12:51 by Bridgett Fletcher DO) (unknown) (no (unknown) (unknown) Medication (units (unk nown) date) Instructions unknown) Recorded Confirmed (unknown) (no (unknown) (unknown) Medication (units (unk nown) date) Instructions unknown) Recorded (unknown) (no (unknown) (unknown) Mode of arrival: (units (unknown) date) Ambulatory unknown) (unknown) (no (unknown) (unknown) [place] # (Auto) (units ( unknown) date) (0-900) /uL unknown) (unknown) (no (unknown) (unknown) [place] # (Auto) 600 (units (unknown) date) (0-900) /uL unknown) (unknown) (no (unknown) (unknown) [place] % (Auto) (units ( unknown) date) (3-14) % unknown) (unknown) (no (unknown) (unknown) [place] % (Auto) 8.8 (units (unknown) date) (3-14) % unknown) (unknown) (no (unknown) (unknown) Mother (units (unknown) date) Stroke unknown) (unknown) (no (unknown) (unknown) NAUSEA W/I (units (unk nown) date) unknown) (unknown) (no (unknown) (unknown) NEUROLOGIC: (units (un known) date) Denies weakness, unknown) dizziness, headache, numbness, change in speech, (unknown) (no (unknown) (unknown) NEUROLOGICAL: (units ( unknown) date) Alert and oriented unknown) x4.Normal gait and speech. (unknown) (no (unknown) (unknown) Narcotic (units (unkno wn) date) dependence unknown) (unknown) (no (unknown) (unknown) Narrative: (units (unk nown) date) unknown) (unknown) (no (unknown) (unknown) Neck pain, (units (unk nown) date) chronic unknown) (unknown) (no (unknown) (unknown) Neut # (Auto) (units ( unknown) date) (6139-4861) /uL unknown) (unknown) (no (unknown) (unknown) Neut # (Auto) (units ( unknown) date) 4800 (5022-6394) unknown) /uL (unknown) (no (unknown) (unknown) Neut % (Auto) (units ( unknown) date) (50-75) % unknown) (unknown) (no (unknown) (unknown) Neut % (Auto) (units ( unknown) date) 70.2 (50-75) % unknown) (unknown) (no (unknown) (unknown) Nitroglycerin (units ( unknown) date) (Nitroglycerin 0.4 unknown) Mg Sl Tab) 0.4 mg SL [id number] PRN (unknown) (no (unknown) (unknown) No Action (units (unkn own) date) unknown) (unknown) (no (unknown) (unknown) Ordered: (units (unkno wn) date) unknown) (unknown) (no (unknown) (unknown) Orders (units (unkno wn) date) unknown) (unknown) (no (unknown) (unknown) Oxygen Delivery (units (unknown) date) Method 05/03/22 unknown) 11:51 (unknown) (no (unknown) (unknown) Oxygen Delivery (units (unknown) date) Method Room Air unknown) Room Air (unknown) (no (unknown) (unknown) Oxygen Delivery (units (unknown) date) Method Room Air unknown) (unknown) (no (unknown) (unknown) Oxygen Delivery (units (unknown) date) Method unknown) (unknown) (no (unknown) (unknown) PRN Reason: Chest (units (unknown) date) Pain unknown) (unknown) (no (unknown) (unknown) PSYCHIATRIC: No (units (unknown) date) concerning unknown) psychosocial issues. (unknown) (no (unknown) (unknown) Patient History (units (unknown) date) unknown) (unknown) (no (unknown) (unknown) Patient is a (units (u nknown) date) 77-year-old male unknown) history of CABG aortic dissection, diabetes, (unknown) (no (unknown) (unknown) Patient: (units (unkno wn) date) JackelineDominic barnes Gisele unknown) MR#: M (unknown) (no (unknown) (unknown) Plt Count (units (unkn own) date) (150-400) X103/uL unknown) (unknown) (no (unknown) (unknown) Plt Count 188 (units ( unknown) date) (150-400) X103/uL unknown) (unknown) (no (unknown) (unknown) Potassium (units (unkn own) date) (3.4-5.1) mmol/L unknown) (unknown) (no (unknown) (unknown) Potassium 4.0 (units ( unknown) date) (3.4-5.1) mmol/L unknown) (unknown) (no (unknown) (unknown) Prescriptions: (units (unknown) date) unknown) (unknown) (no (unknown) (unknown) Previous Rx's (units ( unknown) date) unknown) (unknown) (no (unknown) (unknown) Pulse Oximetry 95 (units (unknown) date) 95 unknown) (unknown) (no (unknown) (unknown) Pulse Oximetry 95 (units (unknown) date) unknown) (unknown) (no (unknown) (unknown) Pulse Oximetry 96 (units (unknown) date) 05/03/22 11:51 unknown) (unknown) (no (unknown) (unknown) Pulse Oximetry 96 (units (unknown) date) 99 unknown) (unknown) (no (unknown) (unknown) Pulse Oximetry 96 (units (unknown) date) unknown) (unknown) (no (unknown) (unknown) Pulse Oximetry 97 (units (unknown) date) 95 unknown) (unknown) (no (unknown) (unknown) Pulse Oximetry 97 (units (unknown) date) 99 unknown) (unknown) (no (unknown) (unknown) Pulse Oximetry 97 (units (unknown) date) unknown) (unknown) (no (unknown) (unknown) Pulse Oximetry 98 (units (unknown) date) 96 unknown) (unknown) (no (unknown) (unknown) Pulse Oximetry 98 (units (unknown) date) unknown) (unknown) (no (unknown) (unknown) Pulse Oximetry (units (unknown) date) unknown) (unknown) (no (unknown) (unknown) Pulse Rate 62 63 (units (unknown) date) unknown) (unknown) (no (unknown) (unknown) Pulse Rate 62 65 (units (unknown) date) unknown) (unknown) (no (unknown) (unknown) Pulse Rate 63 69 (units (unknown) date) unknown) (unknown) (no (unknown) (unknown) Pulse Rate 63 (units ( unknown) date) unknown) (unknown) (no (unknown) (unknown) Pulse Rate 64 64 (units (unknown) date) unknown) (unknown) (no (unknown) (unknown) Pulse Rate 64 79 (units (unknown) date) unknown) (unknown) (no (unknown) (unknown) Pulse Rate 65 (units ( unknown) date) 05/03/22 11:51 unknown) (unknown) (no (unknown) (unknown) Pulse Rate 65 65 (units (unknown) date) 64 unknown) (unknown) (no (unknown) (unknown) Pulse Rate 65 65 (units (unknown) date) unknown) (unknown) (no (unknown) (unknown) Pulse Rate 65 (units ( unknown) date) unknown) (unknown) (no (unknown) (unknown) Pulse Rate 66 62 (units (unknown) date) unknown) (unknown) (no (unknown) (unknown) Pulse Rate 67 63 (units (unknown) date) unknown) (unknown) (no (unknown) (unknown) Pulse Rate 67 (units ( unknown) date) unknown) (unknown) (no (unknown) (unknown) Pulse Rate 74 (units ( unknown) date) unknown) (unknown) (no (unknown) (unknown) RBC (4.5-5.9) (units ( unknown) date) X106/uL unknown) (unknown) (no (unknown) (unknown) RBC 4.40 L (units (unk nown) date) (4.5-5.9) X106/uL unknown) (unknown) (no (unknown) (unknown) RDW (11.6-14.8) % (units (unknown) date) unknown) (unknown) (no (unknown) (unknown) RDW 13.6 (units (unkno wn) date) (11.6-14.8) % unknown) [...] (unknown) Respiratory Rate (units (unknown) date) 17 21 unknown) (unknown) (no (unknown) (unknown) Respiratory Rate (units (unknown) date) 18 05/03/22 11:51 unknown) (unknown) (no (unknown) (unknown) Respiratory Rate (units (unknown) date) 18 18 unknown) (unknown) (no (unknown) (unknown) Respiratory Rate (units (unknown) date) 19 22 unknown) (unknown) (no (unknown) (unknown) Respiratory Rate (units (unknown) date) 19 25 H unknown) (unknown) (no (unknown) (unknown) Respiratory Rate (units (unknown) date) 20 unknown) (unknown) (no (unknown) (unknown) Respiratory Rate (units (unknown) date) 21 22 unknown) (unknown) (no (unknown) (unknown) Respiratory Rate (units (unknown) date) 21 23 unknown) (unknown) (no (unknown) (unknown) Respiratory Rate (units (unknown) date) 21 unknown) (unknown) (no (unknown) (unknown) Respiratory Rate (units (unknown) date) 22 unknown) (unknown) (no (unknown) (unknown) Respiratory Rate (units (unknown) date) 23 unknown) (unknown) (no (unknown) (unknown) Respiratory Rate (units (unknown) date) 24 19 unknown) (unknown) (no (unknown) (unknown) Respiratory Rate (units (unknown) date) unknown) (unknown) (no (unknown) (unknown) Result diagrams: (units (unknown) date) unknown) (unknown) (no (unknown) (unknown) Review of Systems (units (unknown) date) unknown) (unknown) (no (unknown) (unknown) Rx [...] (unknown) Social History (units (unknown) date) (Reviewed 05/03/22 unknown) @ 12:51 by Bridgett Fletcher DO) (unknown) (no (unknown) (unknown) Sodium (137-145) (units (unknown) date) mmol/L unknown) (unknown) (no (unknown) (unknown) Sodium 137 (units (unk nown) date) (137-145) mmol/L unknown) (unknown) (no (unknown) (unknown) Source: patient (units (unknown) date) unknown) (unknown) (no (unknown) (unknown) Stated Complaint: (units (unknown) date) Chest pains, Pain unknown) in arm (unknown) (no (unknown) (unknown) [id number] (units (unknown) date) Reductase AdvReac unknown) Mild WEAK Verified 05/03/22 11:58 (unknown) (no (unknown) (unknown) Stop: 05/03/22 (units (unknown) date) 14:15 unknown) (unknown) (no (unknown) (unknown) Substance Use (units ( unknown) date) Type: does not use unknown) (unknown) (no (unknown) (unknown) Sulfa (units (unkno wn) date) (Sulfonamide unknown) Allergy Mild RASH Verified 05/03/22 11:58 (unknown) (no (unknown) (unknown) Surgical History (units (unknown) date) (Reviewed 05/03/22 unknown) @ 12:51 by Bridgett Fletcher DO) (unknown) (no (unknown) (unknown) Temperature 98.4 (units (unknown) date) F 05/03/22 11:51 unknown) (unknown) (no (unknown) (unknown) Temperature 98.4 (units (unknown) date) F unknown) (unknown) (no (unknown) (unknown) Temperature (units (un known) date) unknown) (unknown) (no (unknown) (unknown) Time Seen by (units (u nknown) date) Provider: 05/03/22 unknown) 12:16 (unknown) (no (unknown) (unknown) Total Bilirubin (units (unknown) date) (0.2-1.3) mg/dL unknown) (unknown) (no (unknown) (unknown) Total Bilirubin (units (unknown) date) 0.3 (0.2-1.3) unknown) mg/dL (unknown) (no (unknown) (unknown) Total Creatine (units (unknown) date) Kinase (55-170) unknown) U/L (unknown) (no (unknown) (unknown) Total Creatine (units (unknown) date) Kinase 103 unknown) (55-170) U/L (unknown) (no (unknown) (unknown) Total Protein (units ( unknown) date) (6.3-8.2) g/dL unknown) (unknown) (no (unknown) (unknown) Total Protein 6.8 (units (unknown) date) (6.3-8.2) g/dL unknown) (unknown) (no (unknown) (unknown) Trop I [Troponin (units (unknown) date) I] Stat unknown) (unknown) (no (unknown) (unknown) Troponin + CK (units ( unknown) date) Cardiac Panel Stat unknown) (unknown) (no (unknown) (unknown) Troponin I < (units (u nknown) date) 0.012 (0.01-0.034) unknown) ng/mL (unknown) (no (unknown) (unknown) Ventricular (units (un known) date) bigeminy unknown) (unknown) (no (unknown) (unknown) Vital Signs - 8 (units (unknown) date) hr unknown) (unknown) (no (unknown) (unknown) Vital Signs (units (un known) date) unknown) (unknown) (no (unknown) (unknown) Vital signs: (units (u nknown) date) unknown) (unknown) (no (unknown) (unknown) W/EXTENDED (units (unk nown) date) unknown) (unknown) (no (unknown) (unknown) WBC (4.5-11.0) (units (unknown) date) X103/uL unknown) (unknown) (no (unknown) (unknown) WBC 6.8 (units (unkno wn) date) (4.5-11.0) X103/uL unknown) (unknown) (no (unknown) (unknown) XR chest 1V Stat (units (unknown) date) unknown) (unknown) (no (unknown) (unknown) Zyrtec 10 mg (units (u nknown) date) Capsule unknown) (unknown) (no (unknown) (unknown) [Embedded Image (units (unknown) date) Not Available] unknown) (unknown) (no (unknown) (unknown) [[id number] (units (unknown) date) REDUCTASE unknown) (unknown) (no (unknown) (unknown) [SULFA (units (unkno wn) date) (SULFONAMIDE unknown) (unknown) (no (unknown) (unknown) acetaminophen 300 (units (unknown) date) mg-codeine 30 mg 2 unknown) tab PO Q4H PRN Pain (Scale Score 02/03/22 (unknown) (no (unknown) (unknown) acetaminophen-cod (units (unknown) date) eine 300-30 mg unknown) tablet (unknown) (no (unknown) (unknown) alcohol intake (units (unknown) date) frequency: 0-2 unknown) drinks per day (unknown) (no (unknown) (unknown) alcohol intake: (units (unknown) date) current unknown) (unknown) (no (unknown) (unknown) buprenorphine (units ( unknown) date) [BUPRENORPHINE] unknown) AdvReac Mild NAUSEA, Verified 05/03/22 11:58 (unknown) (no (unknown) (unknown) caps (units (unkno wn) date) unknown) (unknown) (no (unknown) (unknown) celecoxib (units (unkn own) date) [CELECOXIB] unknown) Allergy Mild SWELLING Verified 05/03/22 11:58 (unknown) (no (unknown) (unknown) cetirizine 10 mg (units (unknown) date) capsule (Zyrtec) unknown) 10 mg PO DAILY 05/22/19 02/03/22 (unknown) (no (unknown) (unknown) clonidine HCl 0.1 (units (unknown) date) mg tablet 0.2 mg unknown) PO BID 12/08/21 02/03/22 (unknown) (no (unknown) (unknown) clonidine HCl 0.1 (units (unknown) date) mg tablet unknown) (unknown) (no (unknown) (unknown) confusion (units (unkn own) date) unknown) (unknown) (no (unknown) (unknown) constipation, (units ( unknown) date) melena. unknown) (unknown) (no (unknown) (unknown) diazepam [From (units (unknown) date) Valium] Allergy unknown) Severe Confusion Verified 05/03/22 11:58 (unknown) (no (unknown) (unknown) docusate sodium (units (unknown) date) 100 mg Capsule unknown) (unknown) (no (unknown) (unknown) docusate sodium (units (unknown) date) 100 mg capsule 100 unknown) mg PO BID PRN constipation #60 02/07/22 (unknown) (no (unknown) (unknown) fentanyl AdvReac (units (unknown) date) Severe Confusion unknown) Verified 05/03/22 11:58 (unknown) (no (unknown) (unknown) ferrous sulfate (units (unknown) date) 325 mg (65 mg 325 unknown) mg PO DAILY 10/19/19 02/03/22 (unknown) (no (unknown) (unknown) ferrous sulfate (units (unknown) date) 325 mg (65 mg unknown) iron) tablet,delayed release (DR/EC) (unknown) (no (unknown) (unknown) few months (units (unk nown) date) however last 3 unknown) days is becoming more constant. It starts in the left (unknown) (no (unknown) (unknown) fluticasone (units (un known) date) propionate 16 GM unknown) spray,suspension (unknown) (no (unknown) (unknown) fluticasone (units (un known) date) propionate 50 1 unknown) spray intranasal DAILY PRN 11/02/17 02/03/22 (unknown) (no (unknown) (unknown) furosemide 40 mg (units (unknown) date) tablet 40 mg PO unknown) DAILY 02/03/22 02/03/22 (unknown) (no (unknown) (unknown) furosemide 40 mg (units (unknown) date) tablet unknown) (unknown) (no (unknown) (unknown) glipizide 2.5 mg (units (unknown) date) tablet, extended unknown) 2.5 mg PO DAILY 10/08/21 02/03/22 (unknown) (no (unknown) (unknown) glipizide (units (unkn own) date) [Glucotrol XL] 2.5 unknown) mg tablet extended release 24 hr (unknown) (no (unknown) (unknown) guarding or (units (un known) date) rebound. unknown) (unknown) (no (unknown) (unknown) household (units (unkn own) date) members: spouse unknown) (unknown) (no (unknown) (unknown) hydromorphone (units ( unknown) date) [From Dilaudid] unknown) Allergy Severe Hallucinating, Verified 05/03/22 (unknown) (no (unknown) (unknown) hyoscyamine (units (un known) date) [HYOSCYAMINE] unknown) AdvReac Mild LEG Verified 05/03/22 11:58 (unknown) (no (unknown) (unknown) inhaler and that (units (unknown) date) helps. He is unknown) followed by cardiology up at [facility]. He (unknown) (no (unknown) (unknown) intact (units (unkno wn) date) unknown) (unknown) (no (unknown) (unknown) iron) (units (unkno wn) date) tablet,delayed unknown) release (unknown) (no (unknown) (unknown) is not (units (unkno wn) date) reproducible to unknown) palpation (unknown) (no (unknown) (unknown) latex [LATEX] (units ( unknown) date) Allergy Mild RASH unknown) Verified 05/03/22 11:58 (unknown) (no (unknown) (unknown) levalbuterol (units (u nknown) date) tartrate 45 1 puff unknown) inhalation Q4-6H PRN 06/22/18 (unknown) (no (unknown) (unknown) levalbuterol (units (u nknown) date) tartrate [Xopenex unknown) HFA] 45 mcg/actuation HFA aerosol inhaler (unknown) (no (unknown) (unknown) lisinopril 10 mg (units (unknown) date) tablet 10 mg PO unknown) DAILY 12/08/21 02/03/22 (unknown) (no (unknown) (unknown) lisinopril 10 mg (units (unknown) date) tablet unknown) (unknown) (no (unknown) (unknown) mcg/actuation (units ( unknown) date) aerosol inhaler unknown) shortness of breath or wheezing (unknown) (no (unknown) (unknown) mcg/actuation (units ( unknown) date) nasal Allergy unknown) Symptoms ##0 (unknown) (no (unknown) (unknown) meclizine 25 mg (units (unknown) date) tablet 25 mg PO unknown) QID PRN vertigo #30 tabs 10/09/21 (unknown) (no (unknown) (unknown) meclizine 25 mg (units (unknown) date) tablet unknown) (unknown) (no (unknown) (unknown) membranes (units (unkn own) date) unknown) (unknown) (no (unknown) (unknown) metoprolol (units (unk nown) date) succinate 100 mg unknown) 100 mg PO DAILY 02/03/22 02/03/22 (unknown) (no (unknown) (unknown) metoprolol (units (unk nown) date) succinate 100 mg unknown) Tablet Extended Release 24 Hr (unknown) (no (unknown) (unknown) mind' (units (unkno wn) date) unknown) (unknown) (no (unknown) (unknown) montelukast 10 mg (units (unknown) date) Tablet unknown) (unknown) (no (unknown) (unknown) montelukast 10 mg (units (unknown) date) tablet 10 mg PO unknown) DAILY 02/03/22 02/03/22 (unknown) (no (unknown) (unknown) morphine Allergy (units (unknown) date) Severe unknown) Hallucinating, Verified 05/03/22 11:58 (unknown) (no (unknown) (unknown) multivitamin (units (u nknown) date) (Multiple Vitamins unknown) 1 tab PO DAILY ##0 12/20/16 02/03/22 (unknown) (no (unknown) (unknown) multivitamin (units (u nknown) date) [Multiple unknown) Vitamins] 1 EACH tablet (unknown) (no (unknown) (unknown) out of his (units (unk nown) date) unknown) (unknown) (no (unknown) (unknown) oxycodone 5 mg (units (unknown) date) tablet 5 mg PO Q4H unknown) PRN pain, moderate #60 02/07/22 (unknown) (no (unknown) (unknown) oxycodone 5 mg (units (unknown) date) tablet unknown) (unknown) (no (unknown) (unknown) pain (units (unkno wn) date) unknown) (unknown) (no (unknown) (unknown) pain. (units (unkno wn) date) unknown) (unknown) (no (unknown) (unknown) presents today (units (unknown) date) with sharp unknown) stabbing chest pain. He says it also off and on for a (unknown) (no (unknown) (unknown) previously had a (units (unknown) date) stress test 3 unknown) years ago. (unknown) (no (unknown) (unknown) release 24 hr (units ( unknown) date) (Glucotrol XL) unknown) (unknown) (no (unknown) (unknown) side of his chest (units (unknown) date) to go straight unknown) through to his back. He denies nausea or (unknown) (no (unknown) (unknown) spray,suspension (units (unknown) date) unknown) (unknown) (no (unknown) (unknown) substance use (units ( unknown) date) type: does not use unknown) (unknown) (no (unknown) (unknown) tablet 4-6) (units (un known) date) unknown) (unknown) (no (unknown) (unknown) tablet) (units (unkno wn) date) unknown) (unknown) (no (unknown) (unknown) tablet,extended (units (unknown) date) release 24 hr unknown) (unknown) (no (unknown) (unknown) tabs (units (unkno wn) date) unknown) (unknown) (no (unknown) (unknown) take 1 tablet by (units (unknown) date) mouth once daily unknown) (unknown) (no (unknown) (unknown) trazodone 100 mg (units (unknown) date) tablet 400 tab PO unknown) BEDTIME 30 days #120 12/10/21 (unknown) (no (unknown) (unknown) trazodone 100 mg (units (unknown) date) tablet unknown) (unknown) (no (unknown) (unknown) varenicline (units (un known) date) [VARENICLINE] unknown) AdvReac Severe Paranoia Verified 05/03/22 11:58 (unknown) (no (unknown) (unknown) vomiting. (units (unkn own) date) Sometimes has unknown) shortness of breath but frequently needs his albuterol Result panel 14 (unknown) (no (unknown) (unknown) (no value) (units (unk nown) date) unknown) (unknown) (no (unknown) (unknown) 'He gets (units (unkno wn) date) unknown) (unknown) (no (unknown) (unknown) (Xopenex HFA) #15 (units (unknown) date) grams unknown) (unknown) (no (unknown) (unknown) *Continue to take (units (unknown) date) medications as unknown) directed (unknown) (no (unknown) (unknown) *Follow up with (units (unknown) date) your primary care unknown) provider in 2-3 days or call [phone] (unknown) (no (unknown) (unknown) *Return to ER if (units (unknown) date) you should have unknown) chest pain shortness of breath palpitations (unknown) (no (unknown) (unknown) *What to do: You (units (unknown) date) do need stress unknown) test and an echocardiogram. Please call your (unknown) (no (unknown) (unknown) *You have been (units (unknown) date) diagnosed with unknown) high blood pressure in chest (unknown) (no (unknown) (unknown) .? Biliary system (units (unknown) date) is non dilated.? unknown) Pancreas enhances normally.? Spleen is normal (unknown) (no (unknown) (unknown) 0.2 mg PO BID (units ( unknown) date) unknown) (unknown) (no (unknown) (unknown) [id number] (units (unkn own) date) unknown) (unknown) (no (unknown) (unknown) 02/03/22 (units (unkno wn) date) unknown) (unknown) (no (unknown) (unknown) 05/03/22 05/03/22 (units (unknown) date) 05/03/22 unknown) Range/Units (unknown) (no (unknown) (unknown) 05/03/22 12:01 (units (unknown) date) unknown) (unknown) (no (unknown) (unknown) 05/03/22 12:07 (units (unknown) date) unknown) (unknown) (no (unknown) (unknown) 05/03/22 12:45 (units (unknown) date) unknown) (unknown) (no (unknown) (unknown) 05/03/22 13:18 (units (unknown) date) unknown) (unknown) (no (unknown) (unknown) 05/03/22 14:25 (units (unknown) date) unknown) (unknown) (no (unknown) (unknown) 05/03/22 15:52 (units (unknown) date) unknown) (unknown) (no (unknown) (unknown) 05/03/22 (units (unkno wn) date) Range/Units unknown) (unknown) (no (unknown) (unknown) 05/03/22 (units (unkno wn) date) unknown) (unknown) (no (unknown) (unknown) 0RF (units (unkno wn) date) unknown) (unknown) (no (unknown) (unknown) 1 [...] to severe pain (unknown) (no (unknown) (unknown) 1. No acute (units (un known) date) thoracic or unknown) abdominal aortic dissection or aneurysmal dilatation. (unknown) (no (unknown) (unknown) 10 mg PO DAILY (units (unknown) date) unknown) (unknown) (no (unknown) (unknown) 100 mg PO BID PRN (units (unknown) date) (Reason: unknown) constipation) Qty: 60 2RF (unknown) (no (unknown) (unknown) 100 mg PO DAILY (units (unknown) date) unknown) (unknown) (no (unknown) (unknown) 11:51 05/03/22 (units (unknown) date) unknown) (unknown) (no (unknown) (unknown) 11:58 (units (unkno wn) date) unknown) (unknown) (no (unknown) (unknown) 12 point review (units (unknown) date) of systems is unknown) negative except for those stated above and HPI (unknown) (no (unknown) (unknown) 12:07 12:07 13:18 (units (unknown) date) unknown) (unknown) (no (unknown) (unknown) 12:18 05/03/22 (units (unknown) date) unknown) (unknown) (no (unknown) (unknown) 12:26 05/03/22 (units (unknown) date) unknown) (unknown) (no (unknown) (unknown) 12:30 05/03/22 (units (unknown) date) unknown) (unknown) (no (unknown) (unknown) 12:30 (units (unkno wn) date) unknown) (unknown) (no (unknown) (unknown) 12:45 05/03/22 (units (unknown) date) unknown) (unknown) (no (unknown) (unknown) 13:06 (units (unkno wn) date) unknown) (unknown) (no (unknown) (unknown) 13:07 05/03/22 (units (unknown) date) unknown) (unknown) (no (unknown) (unknown) 13:15 05/03/22 (units (unknown) date) unknown) (unknown) (no (unknown) (unknown) 13:15 (units (unkno wn) date) unknown) (unknown) (no (unknown) (unknown) 13:25 05/03/22 (units (unknown) date) unknown) (unknown) (no (unknown) (unknown) 13:25 (units (unkno wn) date) unknown) (unknown) (no (unknown) (unknown) 13:27 (units (unkno wn) date) unknown) (unknown) (no (unknown) (unknown) 13:30 05/03/22 (units (unknown) date) unknown) (unknown) (no (unknown) (unknown) 13:30 (units (unkno wn) date) unknown) (unknown) (no (unknown) (unknown) 13:46 05/03/22 (units (unknown) date) unknown) (unknown) (no (unknown) (unknown) 13:58 05/03/22 (units (unknown) date) unknown) (unknown) (no (unknown) (unknown) 13:58 (units (unkno wn) date) unknown) (unknown) (no (unknown) (unknown) 14:00 05/03/22 (units (unknown) date) unknown) (unknown) (no (unknown) (unknown) 14:16 05/03/22 (units (unknown) date) unknown) (unknown) (no (unknown) (unknown) 14:16 (units (unkno wn) date) unknown) (unknown) (no (unknown) (unknown) 14:25 (units (unkno wn) date) unknown) (unknown) (no (unknown) (unknown) 14:30 05/03/22 (units (unknown) date) unknown) (unknown) (no (unknown) (unknown) 14:30 (units (unkno wn) date) unknown) (unknown) (no (unknown) (unknown) 14:45 05/03/22 (units (unknown) date) unknown) (unknown) (no (unknown) (unknown) 15:00 05/03/22 (units (unknown) date) unknown) (unknown) (no (unknown) (unknown) 15:00 (units (unkno wn) date) unknown) (unknown) (no (unknown) (unknown) 15:15 05/03/22 (units (unknown) date) unknown) (unknown) (no (unknown) (unknown) 15:15 (units (unkno wn) date) unknown) (unknown) (no (unknown) (unknown) 15:30 05/03/22 (units (unknown) date) unknown) (unknown) (no (unknown) (unknown) 15:45 05/03/22 (units (unknown) date) unknown) (unknown) (no (unknown) (unknown) 15:45 (units (unkno wn) date) unknown) (unknown) (no (unknown) (unknown) 16:00 05/03/22 (units (unknown) date) unknown) (unknown) (no (unknown) (unknown) 16:00 (units (unkno wn) date) unknown) (unknown) (no (unknown) (unknown) 16:15 05/03/22 (units (unknown) date) unknown) (unknown) (no (unknown) (unknown) 16:30 (units (unkno wn) date) unknown) (unknown) (no (unknown) (unknown) 2 tab PO Q4H PRN (units (unknown) date) (Reason: Pain unknown) (Scale Score 4-6)) (unknown) (no (unknown) (unknown) 2. Postoperative (units (unknown) date) changes unknown) redemonstrated at the ascending thoracic aorta.? (unknown) (no (unknown) (unknown) 2.5 mg PO DAILY (units (unknown) date) unknown) (unknown) (no (unknown) (unknown) 25 mg PO QID PRN (units (unknown) date) (Reason: vertigo) unknown) Qty: 30 0RF (unknown) (no (unknown) (unknown) 3. No acute (units (un known) date) intra-abdominal unknown) findings.? Normal appendix.? Diverticulosis.? No (unknown) (no (unknown) (unknown) 325 mg PO [...] Qty: 60 0RF (unknown) (no (unknown) (unknown) 5. EMR states (units ( unknown) date) that he is on sign unknown) twice a day however patient states that he is (unknown) (no (unknown) (unknown) 8:55. (units (unkno wn) date) unknown) (unknown) (no (unknown) (unknown) ? (units (unkno wn) date) unknown) (unknown) (no (unknown) (unknown) ABDOMEN: Soft, (units (unknown) date) nontender. unknown) Normoactive bowel sounds all 4 quadrants. No (unknown) (no (unknown) (unknown) ABDOMEN:? (units (unkn own) date) unknown) (unknown) (no (unknown) (unknown) ALT (<50) IU/L (units (unknown) date) unknown) (unknown) (no (unknown) (unknown) ALT 26 (<50) IU/L (units (unknown) date) unknown) (unknown) (no (unknown) (unknown) ANTIBIOTICS)] (units ( unknown) date) unknown) (unknown) (no (unknown) (unknown) ANXIETY, (units (unkno wn) date) unknown) (unknown) (no (unknown) (unknown) AORTA:? (units (unkno wn) date) Postoperative unknown) changes are noted within the ascending thoracic aorta.? (unknown) (no (unknown) (unknown) AST (17-59) IU/L (units (unknown) date) unknown) (unknown) (no (unknown) (unknown) AST 30 (17-59) (units (unknown) date) IU/L unknown) (unknown) (no (unknown) (unknown) Accession Number: (units (unknown) date) [id number] ?? unknown) (unknown) (no (unknown) (unknown) Acct:[id number] (units (unknown) date) unknown) (unknown) (no (unknown) (unknown) Acetaminophen (units ( unknown) date) (Acetaminophen 325 unknown) Mg Tablet) 975 mg PO NOW ONE (unknown) (no (unknown) (unknown) Achalasia (units (unkn own) date) unknown) (unknown) (no (unknown) (unknown) Activity (units (unkno wn) date) Restrictions/Addit unknown) ional Instructions: (unknown) (no (unknown) (unknown) Admin: 05/03/22 (units (unknown) date) 13:27 Dose: 0.4 mg unknown) (unknown) (no (unknown) (unknown) Age/Sex: 77 / M (units (unknown) date) unknown) (unknown) (no (unknown) (unknown) Albumin (3.5-5.0) (units (unknown) date) g/dL unknown) (unknown) (no (unknown) (unknown) Albumin 3.8 (units (un known) date) (3.5-5.0) g/dL unknown) (unknown) (no (unknown) (unknown) Albumin/Globulin (units (unknown) date) Ratio (1.0-2.8) unknown) (unknown) (no (unknown) (unknown) Albumin/Globulin (units (unknown) date) Ratio 1.3 unknown) (1.0-2.8) (unknown) (no (unknown) (unknown) Alkaline (units (unkno wn) date) Phosphatase unknown) (38-126) U/L (unknown) (no (unknown) (unknown) Alkaline (units (unkno wn) date) Phosphatase 95 unknown) (38-126) U/L (unknown) (no (unknown) (unknown) Allergies (units (unkn own) date) unknown) (unknown) (no (unknown) (unknown) Allergy/AdvReac (units (unknown) date) Type Severity unknown) Reaction Status Date / Time (unknown) (no (unknown) (unknown) Anginal pain (units (u nknown) date) unknown) (unknown) (no (unknown) (unknown) Antibiotics) (units (u nknown) date) unknown) (unknown) (no (unknown) (unknown) Asthma (units (unkno wn) date) unknown) (unknown) (no (unknown) (unknown) At this time (units (u nknown) date) cardiology unknown) recommends outpatient follow up. I have explained to (unknown) (no (unknown) (unknown) Atheromatous (units (u nknown) date) calcifications are unknown) present throughout the arch.? No aneurysmal (unknown) (no (unknown) (unknown) Atrial (units (unkno wn) date) fibrillation unknown) (unknown) (no (unknown) (unknown) BUN (9-20) mg/dL (units (unknown) date) unknown) (unknown) (no (unknown) (unknown) BUN 17 (9-20) (units ( unknown) date) mg/dL unknown) (unknown) (no (unknown) (unknown) BUN/Creatinine (units (unknown) date) Ratio (6-22) unknown) (unknown) (no (unknown) (unknown) BUN/Creatinine (units (unknown) date) Ratio 24.3 H unknown) (6-22) (unknown) (no (unknown) (unknown) Baso # (Auto) (units ( unknown) date) (0-100) /uL unknown) (unknown) (no (unknown) (unknown) Baso # (Auto) 100 (units (unknown) date) (0-100) /uL unknown) (unknown) (no (unknown) (unknown) Baso % (Auto) (units ( unknown) date) (0-2) % unknown) (unknown) (no (unknown) (unknown) Baso % (Auto) 1.0 (units (unknown) date) (0-2) % unknown) (unknown) (no (unknown) (unknown) Bilateral (units (unkn own) date) unknown) (unknown) (no (unknown) (unknown) Blood Pressure (units (unknown) date) 151/87 H unknown) (unknown) (no (unknown) (unknown) Blood Pressure (units (unknown) date) 159/81 H unknown) (unknown) (no (unknown) (unknown) Blood Pressure (units (unknown) date) 165/88 H 176/82 H unknown) (unknown) (no (unknown) (unknown) Blood Pressure (units (unknown) date) 171/81 H unknown) (unknown) (no (unknown) (unknown) Blood Pressure (units (unknown) date) 174/72 H 197/84 H unknown) (unknown) (no (unknown) (unknown) Blood Pressure (units (unknown) date) 176/82 H 183/78 H unknown) (unknown) (no (unknown) (unknown) Blood Pressure (units (unknown) date) 180/89 H unknown) (unknown) (no (unknown) (unknown) Blood Pressure (units (unknown) date) 185/95 H unknown) (unknown) (no (unknown) (unknown) Blood Pressure (units (unknown) date) 187/88 H unknown) (unknown) (no (unknown) (unknown) Blood Pressure (units (unknown) date) 189/87 H unknown) (unknown) (no (unknown) (unknown) Blood Pressure (units (unknown) date) 196/90 H 193/86 H unknown) (unknown) (no (unknown) (unknown) Blood Pressure (units (unknown) date) 199/90 H 185/89 H unknown) (unknown) (no (unknown) (unknown) Blood Pressure (units (unknown) date) 200/86 H 181/92 H unknown) (unknown) (no (unknown) (unknown) Blood Pressure (units (unknown) date) 210/90 H 05/03/22 unknown) 11:51 (unknown) (no (unknown) (unknown) Blood Pressure (units (unknown) date) 210/90 H 176/94 H unknown) 187/88 H (unknown) (no (unknown) (unknown) Blood Pressure (units (unknown) date) unknown) (unknown) (no (unknown) (unknown) Bones and chest (units (unknown) date) wall:? No axillary unknown) adenopathy by size criteria.? Thyroid gland (unknown) (no (unknown) (unknown) Bones:? No (units (unk nown) date) suspicious bony unknown) lesions.? No vertebral body compression fractures.? (unknown) (no (unknown) (unknown) CARDIOVASCULAR: (units (unknown) date) Regular rate and unknown) rhythm without murmurs, rubs or gallops. Pain (unknown) (no (unknown) (unknown) CARDIOVASCULAR: (units (unknown) date) See HPI unknown) (unknown) (no (unknown) (unknown) CHEST:? (units (unkno wn) date) unknown) (unknown) (no (unknown) (unknown) CK-MB (CK-2) (units (u nknown) date) (<2.37) ng/mL unknown) (unknown) (no (unknown) (unknown) CK-MB (CK-2) 4.44 (units (unknown) date) H (<2.37) ng/mL unknown) (unknown) (no (unknown) (unknown) CK-MB (CK-2) Rel (units (unknown) date) Index (1.5-5.0) % unknown) (unknown) (no (unknown) (unknown) CK-MB (CK-2) Rel (units (unknown) date) Index 4.3 unknown) (1.5-5.0) % (unknown) (no (unknown) (unknown) COMPARISON:? (units (u nknown) date) [facility], unknown) CT, CT ANGIO CHEST ABDOMEN PELVIS, 08/28/2020, (unknown) (no (unknown) (unknown) COPD (chronic (units ( unknown) date) obstructive unknown) pulmonary disease) (unknown) (no (unknown) (unknown) COVID19 -Nasal (units (unknown) date) RAPID/Pre-Proc unknown) Stat (unknown) (no (unknown) (unknown) CT angio chest (units (unknown) date) abdomen pelvis unknown) Stat (unknown) (no (unknown) (unknown) CT scan - chest: (units (unknown) date) unknown) (unknown) (no (unknown) (unknown) Calcium (units (unkno wn) date) (8.4-10.2) mg/dL unknown) (unknown) (no (unknown) (unknown) Calcium 8.8 (units (un known) date) (8.4-10.2) mg/dL unknown) (unknown) (no (unknown) (unknown) Call your (units (unkn own) date) tower hand unknown) tomorrow to schedule appointment as soon as possible (unknown) (no (unknown) (unknown) Carbon Dioxide (units (unknown) date) (22-32) mmol/L unknown) (unknown) (no (unknown) (unknown) Carbon Dioxide 25 (units (unknown) date) (22-32) mmol/L unknown) (unknown) (no (unknown) (unknown) Central and (units (un known) date) peripheral airways unknown) are patent and normal in caliber.? (unknown) (no (unknown) (unknown) Cervical spinal (units (unknown) date) stenosis unknown) (unknown) (no (unknown) (unknown) Chest pain, (units (un known) date) Hypertension unknown) (unknown) (no (unknown) (unknown) Chief Complaint: (units (unknown) date) Chest Pain unknown) (unknown) (no (unknown) (unknown) Chloride (98-107) [...] mg/dL unknown) (unknown) (no (unknown) (unknown) Creatinine 0.70 (units (unknown) date) (0.66-1.25) mg/dL unknown) (unknown) (no (unknown) (unknown) DIZZINESS (units (unkn own) date) unknown) (unknown) (no (unknown) (unknown) : 1945 (units (unknown) date) Acct:[id number] unknown) (unknown) (no (unknown) (unknown) : 1945 (units (unknown) date) unknown) (unknown) (no (unknown) (unknown) Kimmy Gomez, (units (unknown) date) MD [Primary Care unknown) Provider] (unknown) (no (unknown) (unknown) Date of Service: (units (unknown) date) 05/03/22 unknown) (unknown) (no (unknown) (unknown) Departure (units (unkn own) date) unknown) (unknown) (no (unknown) (unknown) Dictated by: Nayeli (units (unknown) date) Clifford Reynolds on unknown) 05/03/2022 at 13:39 ? ? (unknown) (no (unknown) (unknown) Discharge Plan (units (unknown) date) unknown) (unknown) (no (unknown) (unknown) Discontinued (units (u nknown) date) Medications unknown) (unknown) (no (unknown) (unknown) Documented By: ADDIE (units (unknown) date) unknown) (unknown) (no (unknown) (unknown) ECG Data (units (unkno wn) date) unknown) (unknown) (no (unknown) (unknown) ED Orders (units (unkn own) date) unknown) (unknown) (no (unknown) (unknown) EKG-12 Lead (units (un known) date) Routine unknown) (unknown) (no (unknown) (unknown) EKG-12 Lead Stat (units (unknown) date) unknown) (unknown) (no (unknown) (unknown) ER Physician: (units ( unknown) date) Bridgett Fletcher unknown) D.O. (unknown) (no (unknown) (unknown) EXPOSURE (units (unkno wn) date) unknown) (unknown) (no (unknown) (unknown) EXTREMITIES: (units (u nknown) date) Normal range of unknown) motion, no clubbing or edema. Neurovascularly (unknown) (no (unknown) (unknown) Emergency Report (units (unknown) date) unknown) (unknown) (no (unknown) (unknown) Eos # (Auto) (units (u nknown) date) (0-450) /uL unknown) (unknown) (no (unknown) (unknown) Eos # (Auto) 200 (units (unknown) date) (0-450) /uL unknown) (unknown) (no (unknown) (unknown) Eos % (Auto) (units (u nknown) date) (2-4) % unknown) (unknown) (no (unknown) (unknown) Eos % (Auto) 3.4 (units (unknown) date) (2-4) % unknown) (unknown) (no (unknown) (unknown) Esophagus (units (unkn own) date) unknown) (unknown) (no (unknown) (unknown) Estimated GFR > (units (unknown) date) 60 (>60) mL/min unknown) (unknown) (no (unknown) (unknown) Estimated GFR (units ( unknown) date) (>60) mL/min unknown) (unknown) (no (unknown) (unknown) Exam (units (unkno wn) date) unknown) (unknown) (no (unknown) (unknown) FINDINGS:? (units (unk nown) date) unknown) (unknown) (no (unknown) (unknown) Family History (units (unknown) date) (Reviewed 05/03/22 unknown) @ 12:51 by Bridgett Fletcher DO) (unknown) (no (unknown) (unknown) Father (units (unkno wn) date) Hypertension unknown) (unknown) (no (unknown) (unknown) GASTROINTESTINAL: (units (unknown) date) Denies nausea, unknown) vomiting, abdominal pain, diarrhea, (unknown) (no (unknown) (unknown) GENERAL: Alert (units (unknown) date) 77-year-old male unknown) and in no acute distress. (unknown) (no (unknown) (unknown) GENERAL: Denies (units (unknown) date) chills, fatigue, unknown) malaise, fever, sweats, travel (unknown) (no (unknown) (unknown) : Denies (units (unkn own) date) dysuria, unknown) frequency, incontinence, hematuria, urinary retention, flank (unknown) (no (unknown) (unknown) General (units (unkno wn) date) unknown) (unknown) (no (unknown) (unknown) Genitourinary:? (units (unknown) date) Bladder wall unknown) thickness is normal.? (unknown) (no (unknown) (unknown) Globulin (units (unkno wn) date) (1.7-4.1) g/dL unknown) (unknown) (no (unknown) (unknown) Globulin 3.0 (units (u nknown) date) (1.7-4.1) g/dL unknown) (unknown) (no (unknown) (unknown) Glucose (80-110) (units (unknown) date) mg/dL unknown) (unknown) (no (unknown) (unknown) Glucose 155 H (units ( unknown) date) (80-110) mg/dL [...] mucous (unknown) (no (unknown) (unknown) HPI - Chest Pain (units (unknown) date) unknown) (unknown) (no (unknown) (unknown) HPI narrative: (units (unknown) date) unknown) (unknown) (no (unknown) (unknown) Hct (41-53) % (units ( unknown) date) unknown) (unknown) (no (unknown) (unknown) Hct 38.4 L (units (unk nown) date) (41-53) % unknown) (unknown) (no (unknown) (unknown) Hgb (13.5-17.5) (units (unknown) date) g/dL unknown) (unknown) (no (unknown) (unknown) Hgb 13.3 L (units (unk nown) date) (13.5-17.5) g/dL [...] (unknown) (unknown) INDICATIONS:? (units ( unknown) date) chest pain with unknown) prior dissection (unknown) (no (unknown) (unknown) INHIBITOR] (units (unk nown) date) unknown) (unknown) (no (unknown) (unknown) Image quality:? (units (unknown) date) Excellent.? unknown) (unknown) (no (unknown) (unknown) Imaging Data (units (u nknown) date) unknown) (unknown) (no (unknown) (unknown) Inferior vena (units ( unknown) date) cava is normal in unknown) morphology.? (unknown) (no (unknown) (unknown) Inhibitor MUSCLES (units (unknown) date) unknown) (unknown) (no (unknown) (unknown) Initial Vital (units ( unknown) date) Signs unknown) (unknown) (no (unknown) (unknown) Initial Vital (units ( unknown) date) Signs: unknown) (unknown) (no (unknown) (unknown) Instructions: DI (units (unknown) date) for Chest Pain, unknown) High Blood Pressure (unknown) (no (unknown) (unknown) Interpretation: (units (unknown) date) unknown) (unknown) (no (unknown) (unknown) Ischemic (units (unkno wn) date) cardiomyopathy unknown) (unknown) (no (unknown) (unknown) [facility] (units (unknown) date) [address] [place] [address] Street unknown) [place] [address] (unknown) (no (unknown) (unknown) JERKING, (units (unkno wn) date) unknown) (unknown) (no (unknown) (unknown) Lab Data (units (unkno wn) date) unknown) (unknown) (no (unknown) (unknown) Lab Results (units (un known) date) unknown) (unknown) (no (unknown) (unknown) Label Comments: (units (unknown) date) unknown) (unknown) (no (unknown) (unknown) Labs: (units (unkno wn) date) unknown) (unknown) (no (unknown) (unknown) Last Admin: (units (un known) date) 05/03/22 13:58 unknown) Dose: 0.4 mg (unknown) (no (unknown) (unknown) Last Admin: (units (un known) date) 05/03/22 14:22 unknown) Dose: 975 mg (unknown) (no (unknown) (unknown) Limitations: no (units (unknown) date) limitations unknown) (unknown) (no (unknown) (unknown) Lipase (23-300) (units (unknown) date) U/L unknown) (unknown) (no (unknown) (unknown) Lipase 73 (units (unkn own) date) (23-300) U/L unknown) (unknown) (no (unknown) (unknown) Lipase Stat (units (un known) date) unknown) (unknown) (no (unknown) (unknown) Loc: ED (units (unkno wn) date) unknown) (unknown) (no (unknown) (unknown) Lungs and (units (unkn own) date) pleura:? No acute unknown) airspace opacities.? No pleural effusions or (unknown) (no (unknown) (unknown) Lymph # (Auto) (units (unknown) date) (5222-9112) /uL unknown) (unknown) (no (unknown) (unknown) Lymph # (Auto) (units (unknown) date) 1100 (6667-1638) unknown) /uL (unknown) (no (unknown) (unknown) Lymph % (Auto) (units (unknown) date) (25-40) % unknown) (unknown) (no (unknown) (unknown) Lymph % (Auto) (units (unknown) date) 16.6 L (25-40) % unknown) (unknown) (no (unknown) (unknown) MCH (26-34) PG (units (unknown) date) unknown) (unknown) (no (unknown) (unknown) MCH 30.2 (26-34) (units (unknown) date) PG unknown) (unknown) (no (unknown) (unknown) MCHC (30-36) % (units (unknown) date) unknown) (unknown) (no (unknown) (unknown) MCHC 34.6 (30-36) (units (unknown) date) % unknown) (unknown) (no (unknown) (unknown) MCV (80-100) fL (units (unknown) date) unknown) (unknown) (no (unknown) (unknown) MCV 87.3 (80-100) (units (unknown) date) fL unknown) (unknown) (no (unknown) (unknown) MDM - Chest Pain (units (unknown) date) unknown) (unknown) (no (unknown) (unknown) MDM Narrative (units ( unknown) date) unknown) (unknown) (no (unknown) (unknown) MINUTES (units (unkno wn) date) unknown) (unknown) (no (unknown) (unknown) MR#: [id number] (units (unknown) date) unknown) (unknown) (no (unknown) (unknown) MUSCULOSKELETAL: (units (unknown) date) Denies weakness, unknown) joint pain, or bony pain (unknown) (no (unknown) (unknown) Magnesium (units (unkn own) date) (1.6-2.3) mg/dL unknown) (unknown) (no (unknown) (unknown) Magnesium 1.9 (units ( unknown) date) (1.6-2.3) mg/dL unknown) (unknown) (no (unknown) (unknown) Magnesium Stat (units (unknown) date) unknown) (unknown) (no (unknown) (unknown) Jas Thomson MD (units (unknown) date) [Non-Staff] unknown) (unknown) (no (unknown) (unknown) Mediastinum:? (units ( unknown) date) Heart size is unknown) normal.? No pericardial effusion.? Atheromatous (unknown) (no (unknown) (unknown) Medical History (units (unknown) date) (Reviewed 05/03/22 unknown) @ 12:51 by Bridgett Fletcher DO) (unknown) (no (unknown) (unknown) Medical decision (units (unknown) date) making narrative: unknown) (unknown) (no (unknown) (unknown) Medication (units (unk nown) date) Instructions unknown) Recorded Confirmed (unknown) (no (unknown) (unknown) Medication (units (unk nown) date) Instructions unknown) Recorded (unknown) (no (unknown) (unknown) Miscellaneous:? (units (unknown) date) No inguinal unknown) hernias or adenopathy.? No ventral hernias.? (unknown) (no (unknown) (unknown) Miscellaneous:? (units (unknown) date) No ventral unknown) hernias.? (unknown) (no (unknown) (unknown) Mode of arrival: (units (unknown) date) Ambulatory unknown) (unknown) (no (unknown) (unknown) [place] # (Auto) (units ( unknown) date) (0-900) /uL unknown) (unknown) (no (unknown) (unknown) [place] # (Auto) 600 (units (unknown) date) (0-900) /uL unknown) (unknown) (no (unknown) (unknown) [place] % (Auto) (units ( unknown) date) (3-14) % unknown) (unknown) (no (unknown) (unknown) [place] % (Auto) 8.8 (units (unknown) date) (3-14) % unknown) (unknown) (no (unknown) (unknown) Mother (units (unknown) date) Stroke unknown) (unknown) (no (unknown) (unknown) NAUSEA W/I (units (unk nown) date) unknown) (unknown) (no (unknown) (unknown) NEUROLOGIC: (units (un known) date) Denies weakness, unknown) dizziness, headache, numbness, change in speech, (unknown) (no (unknown) (unknown) NEUROLOGICAL: (units ( unknown) date) Alert and oriented unknown) x4.Normal gait and speech. (unknown) (no (unknown) (unknown) Narcotic (units (unkno wn) date) dependence unknown) (unknown) (no (unknown) (unknown) Narrative: (units (unk nown) date) unknown) (unknown) (no (unknown) (unknown) Neck pain, (units (unk nown) date) chronic unknown) (unknown) (no (unknown) (unknown) Neut # (Auto) (units ( unknown) date) (9758-0313) /uL unknown) (unknown) (no (unknown) (unknown) Neut # (Auto) (units ( unknown) date) 4800 (1568-8739) unknown) /uL (unknown) (no (unknown) (unknown) Neut % (Auto) (units ( unknown) date) (50-75) % unknown) (unknown) (no (unknown) (unknown) Neut % (Auto) (units ( unknown) date) 70.2 (50-75) % unknown) (unknown) (no (unknown) (unknown) Nitroglycerin (units ( unknown) date) (Nitroglycerin 0.4 unknown) Mg Sl Tab) 0.4 mg SL [id number] PRN (unknown) (no (unknown) (unknown) No Action (units (unkn own) date) unknown) (unknown) (no (unknown) (unknown) Nodes and (units (unkn own) date) vessels:? No unknown) retroperitoneal or mesenteric adenopathy by size (unknown) (no (unknown) (unknown) Normal sinus (units (u nknown) date) rhythm rate 63 unknown) rate here interval 200 QRS [address] changes (unknown) (no (unknown) (unknown) Normal sinus (units (u nknown) date) rhythm rate 70 [place] unknown) interval 222 QRS 86 (unknown) (no (unknown) (unknown) Normal sinus (units (u nknown) date) rhythm rate 70 unknown) p.r. interval 198 QRS [address] changes (unknown) (no (unknown) (unknown) Ordered: (units (unkno wn) date) unknown) (unknown) (no (unknown) (unknown) Ordering (units (unkno wn) date) Provider: unknown) Bridgett Fletcher D.O. (unknown) (no (unknown) (unknown) Orders (units (unkno wn) date) unknown) (unknown) (no (unknown) (unknown) Oxygen Delivery (units (unknown) date) Method 05/03/22 unknown) 11:51 (unknown) (no (unknown) (unknown) Oxygen Delivery (units (unknown) date) Method Room Air unknown) Room Air (unknown) (no (unknown) (unknown) Oxygen Delivery (units (unknown) date) Method Room Air unknown) (unknown) (no (unknown) (unknown) Oxygen Delivery (units (unknown) date) Method unknown) (unknown) (no (unknown) (unknown) PELVIS:? (units (unkno wn) date) unknown) (unknown) (no (unknown) (unknown) PRN Reason: Chest (units (unknown) date) Pain unknown) (unknown) (no (unknown) (unknown) PROCEDURE:? CT (units (unknown) date) ANGIO CHEST unknown) ABDOMEN PELVIS (unknown) (no (unknown) (unknown) PSYCHIATRIC: No (units (unknown) date) concerning unknown) psychosocial issues. (unknown) (no (unknown) (unknown) Patient (units (unkno wn) date) Disposition: Home unknown) (unknown) (no (unknown) (unknown) Patient History (units (unknown) date) unknown) (unknown) (no (unknown) (unknown) Patient is a (units (u nknown) date) 77-year-old male unknown) history of CABG aortic dissection, diabetes, (unknown) (no (unknown) (unknown) Patient: (units (unkno wn) date) Dominic Viveros unknown) MR#: [id number] (unknown) (no (unknown) (unknown) Patient: (units (unkno wn) date) Dominic Viveros unknown) (unknown) (no (unknown) (unknown) Peritoneum and (units (unknown) date) bowel:? No free unknown) fluid or air.? Bowel loops are normal in caliber (unknown) (no (unknown) (unknown) Plt Count (units (unkn own) date) (150-400) X103/uL unknown) (unknown) (no (unknown) (unknown) Plt Count 188 (units ( unknown) date) (150-400) X103/uL unknown) (unknown) (no (unknown) (unknown) Potassium (units (unkn own) date) (3.4-5.1) mmol/L unknown) (unknown) (no (unknown) (unknown) Potassium 4.0 (units ( unknown) date) (3.4-5.1) mmol/L unknown) (unknown) (no (unknown) (unknown) Precontrast 5 mm (units (unknown) date) thick sections unknown) acquired from the lung apices to the iliac (unknown) (no (unknown) (unknown) Prescriptions: (units (unknown) date) unknown) (unknown) (no (unknown) (unknown) Previous Rx's (units ( unknown) date) unknown) (unknown) (no (unknown) (unknown) Procedure: CT (units ( unknown) date) angio chest unknown) abdomen pelvis (unknown) (no (unknown) (unknown) Pulse Oximetry 95 (units (unknown) date) 95 unknown) (unknown) (no (unknown) (unknown) Pulse Oximetry 95 (units (unknown) date) unknown) (unknown) (no (unknown) (unknown) Pulse Oximetry 96 (units (unknown) date) 05/03/22 11:51 unknown) (unknown) (no (unknown) (unknown) Pulse Oximetry 96 (units (unknown) date) 99 unknown) (unknown) (no (unknown) (unknown) Pulse Oximetry 96 (units (unknown) date) unknown) (unknown) (no (unknown) (unknown) Pulse Oximetry 97 (units (unknown) date) 95 unknown) (unknown) (no (unknown) (unknown) Pulse Oximetry 97 (units (unknown) date) 99 unknown) (unknown) (no (unknown) (unknown) Pulse Oximetry 97 (units (unknown) date) unknown) (unknown) (no (unknown) (unknown) Pulse Oximetry 98 (units (unknown) date) 96 unknown) (unknown) (no (unknown) (unknown) Pulse Oximetry 98 (units (unknown) date) unknown) (unknown) (no (unknown) (unknown) Pulse Oximetry (units (unknown) date) unknown) (unknown) (no (unknown) (unknown) Pulse Rate 62 63 (units (unknown) date) unknown) (unknown) (no (unknown) (unknown) Pulse Rate 62 65 (units (unknown) date) unknown) (unknown) (no (unknown) (unknown) Pulse Rate 63 69 (units (unknown) date) unknown) (unknown) (no (unknown) (unknown) Pulse Rate 63 (units ( unknown) date) unknown) (unknown) (no (unknown) (unknown) Pulse Rate 64 64 (units (unknown) date) unknown) (unknown) (no (unknown) (unknown) Pulse Rate 64 79 (units (unknown) date) unknown) (unknown) (no (unknown) (unknown) Pulse Rate 65 (units ( unknown) date) 05/03/22 11:51 unknown) (unknown) (no (unknown) (unknown) Pulse Rate 65 65 (units (unknown) date) 64 unknown) (unknown) (no (unknown) (unknown) Pulse Rate 65 65 (units (unknown) date) unknown) (unknown) (no (unknown) (unknown) Pulse Rate 65 (units ( unknown) date) unknown) (unknown) (no (unknown) (unknown) Pulse Rate 66 62 (units (unknown) date) unknown) (unknown) (no (unknown) (unknown) Pulse Rate 67 63 (units (unknown) date) unknown) (unknown) (no (unknown) (unknown) Pulse Rate 67 (units ( unknown) date) unknown) (unknown) (no (unknown) (unknown) Pulse Rate 74 (units ( unknown) date) unknown) (unknown) (no (unknown) (unknown) RBC (4.5-5.9) (units ( unknown) date) X106/uL unknown) (unknown) (no (unknown) (unknown) RBC 4.40 L (units (unk nown) date) (4.5-5.9) X106/uL unknown) (unknown) (no (unknown) (unknown) RDW (11.6-14.8) % (units (unknown) date) unknown) (unknown) (no (unknown) (unknown) RDW 13.6 (units (unkno wn) date) (11.6-14.8) % unknown) (unknown) (no (unknown) (unknown) RESPIRATORY: (units (u nknown) date) Breath sounds unknown) equal bilaterally, no wheezes rales or rhonchi. (unknown) (no (unknown) (unknown) RESPIRATORY: (units (u nknown) date) Denies dyspnea, unknown) cough, wheezing, hemoptysis, sputum. (unknown) (no (unknown) (unknown) Radiologist's (units ( unknown) date) Impression: unknown) (unknown) (no (unknown) (unknown) Referrals: (units (unk nown) date) unknown) (unknown) (no (unknown) (unknown) Related Data (units (u nknown) date) unknown) (unknown) (no (unknown) (unknown) Respiratory Rate (units (unknown) date) 14 unknown) (unknown) (no (unknown) (unknown) Respiratory Rate (units (unknown) date) 17 21 unknown) (unknown) (no (unknown) (unknown) Respiratory Rate (units (unknown) date) 18 05/03/22 11:51 unknown) (unknown) (no (unknown) (unknown) Respiratory Rate (units (unknown) date) 18 18 unknown) (unknown) (no (unknown) (unknown) Respiratory Rate (units (unknown) date) 19 22 unknown) (unknown) (no (unknown) (unknown) Respiratory Rate (units (unknown) date) 19 25 H unknown) (unknown) (no (unknown) (unknown) Respiratory Rate (units (unknown) date) 20 unknown) (unknown) (no (unknown) (unknown) Respiratory Rate (units (unknown) date) 21 22 unknown) (unknown) (no (unknown) (unknown) Respiratory Rate (units (unknown) date) 21 23 unknown) (unknown) (no (unknown) (unknown) Respiratory Rate (units (unknown) date) 21 unknown) (unknown) (no (unknown) (unknown) Respiratory Rate (units (unknown) date) 22 unknown) (unknown) (no (unknown) (unknown) Respiratory Rate (units (unknown) date) 23 unknown) (unknown) (no (unknown) (unknown) Respiratory Rate (units (unknown) date) 24 19 unknown) (unknown) (no (unknown) (unknown) Respiratory Rate (units (unknown) date) unknown) (unknown) (no (unknown) (unknown) Result diagrams: (units (unknown) date) unknown) (unknown) (no (unknown) (unknown) Review of Systems (units (unknown) date) unknown) (unknown) (no (unknown) (unknown) Rx [...] nown) date) unknown) (unknown) (no (unknown) (unknown) Signed (units (unkno wn) date) unknown) (unknown) (no (unknown) (unknown) Smoking Status: (units (unknown) date) Former smoker unknown) (unknown) (no (unknown) (unknown) Social History (units (unknown) date) (Reviewed 05/03/22 unknown) @ 12:51 by Bridgett Fletcher DO) (unknown) (no (unknown) (unknown) Sodium (137-145) (units (unknown) date) mmol/L unknown) (unknown) (no (unknown) (unknown) Sodium 137 (units (unk nown) date) (137-145) mmol/L unknown) (unknown) (no (unknown) (unknown) Solid organs:? (units (unknown) date) Liver is normal in unknown) size and enhancement.? Gallbladder is (unknown) (no (unknown) (unknown) Source: patient (units (unknown) date) unknown) (unknown) (no (unknown) (unknown) Stated Complaint: (units (unknown) date) Chest pains, Pain unknown) in arm (unknown) (no (unknown) (unknown) [id number] (units (unknown) date) Reductase AdvReac unknown) Mild WEAK Verified 05/03/22 11:58 (unknown) (no (unknown) (unknown) Stop: 05/03/22 (units (unknown) date) 14:15 unknown) (unknown) (no (unknown) (unknown) Substance Use (units ( unknown) date) Type: does not use unknown) (unknown) (no (unknown) (unknown) Sulfa (units (unkno wn) date) (Sulfonamide unknown) Allergy Mild RASH Verified 05/03/22 11:58 (unknown) (no (unknown) (unknown) Surgical History (units (unknown) date) (Reviewed 05/03/22 unknown) @ 12:51 by Bridgett Fletcher DO) (unknown) (no (unknown) (unknown) TECHNIQUE:? (units (un known) date) unknown) (unknown) (no (unknown) (unknown) Temperature 98.4 (units (unknown) date) F 05/03/22 11:51 unknown) (unknown) (no (unknown) (unknown) Temperature 98.4 (units (unknown) date) F unknown) (unknown) (no (unknown) (unknown) Temperature (units (un known) date) unknown) (unknown) (no (unknown) (unknown) The patient is (units (unknown) date) clinically sober, unknown) free from distracting injury, appears to have (unknown) (no (unknown) (unknown) Time Seen by (units (u nknown) date) Provider: 05/03/22 unknown) 12:16 (unknown) (no (unknown) (unknown) Total Bilirubin (units (unknown) date) (0.2-1.3) mg/dL unknown) (unknown) (no (unknown) (unknown) Total Bilirubin (units (unknown) date) 0.3 (0.2-1.3) unknown) mg/dL (unknown) (no (unknown) (unknown) Total Creatine (units (unknown) date) Kinase (55-170) unknown) U/L (unknown) (no (unknown) (unknown) Total Creatine (units (unknown) date) Kinase 103 unknown) (55-170) U/L (unknown) (no (unknown) (unknown) Total Protein (units ( unknown) date) (6.3-8.2) g/dL unknown) (unknown) (no (unknown) (unknown) Total Protein 6.8 (units (unknown) date) (6.3-8.2) g/dL unknown) (unknown) (no (unknown) (unknown) Tried for 3-1/2 (units (unknown) date) hours to get in unknown) touch with [facility]. Finally did (unknown) (no (unknown) (unknown) Trop I [Troponin (units (unknown) date) I] Stat unknown) (unknown) (no (unknown) (unknown) Troponin + CK (units ( unknown) date) Cardiac Panel Stat unknown) (unknown) (no (unknown) (unknown) Troponin I < (units (u nknown) date) 0.012 (0.01-0.034) unknown) ng/mL (unknown) (no (unknown) (unknown) Vasculature:? The (units (unknown) date) celiac axis, SMA, unknown) and FLORI are widely patent.? The bilateral (unknown) (no (unknown) (unknown) Ventricular (units (un known) date) bigeminy unknown) (unknown) (no (unknown) (unknown) Vital Signs - 8 (units (unknown) date) hr unknown) (unknown) (no (unknown) (unknown) Vital Signs (units (un known) date) unknown) (unknown) (no (unknown) (unknown) Vital signs: (units (u nknown) date) unknown) (unknown) (no (unknown) (unknown) W/EXTENDED (units (unk nown) date) unknown) (unknown) (no (unknown) (unknown) WBC (4.5-11.0) (units (unknown) date) X103/uL unknown) (unknown) (no (unknown) (unknown) WBC 6.8 (units (unkno wn) date) (4.5-11.0) X103/uL unknown) (unknown) (no (unknown) (unknown) XR chest 1V Stat (units (unknown) date) unknown) (unknown) (no (unknown) (unknown) You have not had (units (unknown) date) a complete workup unknown) you need a stress test and echocardiogram (unknown) (no (unknown) (unknown) Zyrtec 10 mg (units (u nknown) date) Capsule unknown) (unknown) (no (unknown) (unknown) [Embedded Image (units (unknown) date) Not Available] unknown) (unknown) (no (unknown) (unknown) [[id number] (units (unknown) date) REDUCTASE unknown) (unknown) (no (unknown) (unknown) [SULFA (units (unkno wn) date) (SULFONAMIDE unknown) (unknown) (no (unknown) (unknown) abdominal aorta.? (units (unknown) date) No aneurysmal unknown) dilatation, wall thickening, intramural (unknown) (no (unknown) (unknown) about the (units (unkn own) date) condition and ask unknown) them to return to the ED as soon as possible to (unknown) (no (unknown) (unknown) acetaminophen 300 (units (unknown) date) mg-codeine 30 mg 2 unknown) tab PO Q4H PRN Pain (Scale Score 02/03/22 (unknown) (no (unknown) (unknown) acetaminophen-cod (units (unknown) date) eine 300-30 mg unknown) tablet (unknown) (no (unknown) (unknown) acute (units (unkno wn) date) unknown) (unknown) (no (unknown) (unknown) adenopathy by (units ( unknown) date) size criteria.? unknown) Central pulmonary arteries are normal in size.? (unknown) (no (unknown) (unknown) alcohol intake (units (unknown) date) frequency: 0-2 unknown) drinks per day (unknown) (no (unknown) (unknown) alcohol intake: (units (unknown) date) current unknown) (unknown) (no (unknown) (unknown) also not under (units (unknown) date) any duress to unknown) leave the hospital. In this scenario, it would be (unknown) (no (unknown) (unknown) alternative (units (un known) date) options in hopes unknown) that the patient might be amenable to partial (unknown) (no (unknown) (unknown) and enhancement.? (units (unknown) date) No adrenal unknown) nodules.? Both kidneys are normal in size and (unknown) (no (unknown) (unknown) and wall (units (unkno wn) date) unknown) (unknown) (no (unknown) (unknown) appendix is thin (units (unknown) date) walled and gas unknown) filled. (unknown) (no (unknown) (unknown) arteries are (units (u nknown) date) patent.? Dense unknown) atheromatous calcifications are present throughout (unknown) (no (unknown) (unknown) at least once a (units (unknown) date) day. He may need unknown) blood pressure medication adjustment. This (unknown) (no (unknown) (unknown) battery to (units (unk nown) date) subject the unknown) patient to treatment against his/her will. I have voiced (unknown) (no (unknown) (unknown) been unable to (units (unknown) date) convince the unknown) patient to stay I answered all of their questions (unknown) (no (unknown) (unknown) blood pressure. (units (unknown) date) He has 2- unknown) troponins. He states that he takes his blood (unknown) (no (unknown) (unknown) both patient and (units (unknown) date) at the full unknown) cardiac workup has not been done I still (unknown) (no (unknown) (unknown) buprenorphine (units ( unknown) date) [BUPRENORPHINE] unknown) AdvReac Mild NAUSEA, Verified 05/03/22 11:58 (unknown) (no (unknown) (unknown) calcifications (units (unknown) date) are present within unknown) the coronary arteries.? 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 unknown) Also please check your blood pressure regularly (unknown) (no (unknown) (unknown) celecoxib (units (unkn own) date) [CELECOXIB] unknown) Allergy Mild SWELLING Verified 05/03/22 11:58 (unknown) (no (unknown) (unknown) cetirizine 10 mg (units (unknown) date) capsule (Zyrtec) unknown) 10 mg PO DAILY 05/22/19 02/03/22 (unknown) (no (unknown) (unknown) change or worsen (units (unknown) date) in any way shape unknown) or form. (unknown) (no (unknown) (unknown) change their mind (units (unknown) date) about the further unknown) evaluation and treatment. I strongly (unknown) (no (unknown) (unknown) clonidine HCl 0.1 (units (unknown) date) mg tablet 0.2 mg unknown) PO BID 12/08/21 02/03/22 (unknown) (no (unknown) (unknown) clonidine HCl 0.1 (units (unknown) date) mg tablet unknown) (unknown) (no (unknown) (unknown) complete their (units (unknown) date) evaluation, unknown) especially if their symptoms worsen or do not (unknown) (no (unknown) (unknown) confusion (units (unkn own) date) unknown) (unknown) (no (unknown) (unknown) constipation, (units ( unknown) date) melena. unknown) (unknown) (no (unknown) (unknown) coronal reformats (units (unknown) date) were then unknown) acquired.? For radiation dose reduction, the (unknown) (no (unknown) (unknown) could be causing (units (unknown) date) and affecting some unknown) of your chest discomfort. (unknown) (no (unknown) (unknown) crests.? After (units (unknown) date) unknown) (unknown) (no (unknown) (unknown) criteria.? (units (unk nown) date) unknown) (unknown) (no (unknown) (unknown) department at any (units (unknown) date) time, particularly unknown) with worsening symptoms. (unknown) (no (unknown) (unknown) determine if there (units (unknown) date) symptoms are unknown) caused by a condition that present risk of (unknown) (no (unknown) (unknown) diazepam [From (units (unknown) date) Valium] Allergy unknown) Severe Confusion Verified 05/03/22 11:58 (unknown) (no (unknown) (unknown) dilatation of (units ( unknown) date) unknown) (unknown) (no (unknown) (unknown) dissection. (units (un known) date) unknown) (unknown) (no (unknown) (unknown) diverticulitis. (units (unknown) date) The unknown) (unknown) (no (unknown) (unknown) diverticulitis.? (units (unknown) date) unknown) (unknown) (no (unknown) (unknown) dizziness or any (units (unknown) date) new, worsening or unknown) concerning symptoms (unknown) (no (unknown) (unknown) docusate sodium (units (unknown) date) 100 mg Capsule unknown) (unknown) (no (unknown) (unknown) docusate sodium (units (unknown) date) 100 mg capsule 100 unknown) mg PO BID PRN constipation #60 02/07/22 (unknown) (no (unknown) (unknown) encouraged him to (units (unknown) date) return to the unknown) emergency department if his chest pain should (unknown) (no (unknown) (unknown) encouraged the (units (unknown) date) patient to return unknown) to this emergency department or any emergency (unknown) (no (unknown) (unknown) enhancement, (units (u nknown) date) unknown) (unknown) (no (unknown) (unknown) evaluation and (units (unknown) date) treatment which unknown) would be medically beneficial to the patient, (unknown) (no (unknown) (unknown) fentanyl AdvReac (units (unknown) date) Severe Confusion unknown) Verified 05/03/22 11:58 (unknown) (no (unknown) (unknown) ferrous sulfate (units (unknown) date) 325 mg (65 mg 325 unknown) mg PO DAILY 10/19/19 02/03/22 (unknown) (no (unknown) (unknown) ferrous sulfate (units (unknown) date) 325 mg (65 mg unknown) iron) tablet,delayed release (DR/EC) (unknown) (no (unknown) (unknown) few months (units (unk nown) date) however last 3 unknown) days is becoming more constant. It starts in the left (unknown) (no (unknown) (unknown) fluticasone (units (un known) date) propionate 16 GM unknown) spray,suspension (unknown) (no (unknown) (unknown) fluticasone (units (un known) date) propionate 50 1 unknown) spray intranasal DAILY PRN 11/02/17 02/03/22 (unknown) (no (unknown) (unknown) following was (units ( unknown) date) unknown) (unknown) (no (unknown) (unknown) fractures.? (units (un known) date) unknown) (unknown) (no (unknown) (unknown) from the (units (unkno wn) date) unknown) (unknown) (no (unknown) (unknown) furosemide 40 mg (units (unknown) date) tablet 40 mg PO unknown) DAILY 02/03/22 02/03/22 (unknown) (no (unknown) (unknown) furosemide 40 mg (units (unknown) date) tablet unknown) (unknown) (no (unknown) (unknown) glipizide 2.5 mg (units (unknown) date) tablet, extended unknown) 2.5 mg PO DAILY 10/08/21 02/03/22 (unknown) (no (unknown) (unknown) glipizide (units (unkn own) date) [Glucotrol XL] 2.5 unknown) mg tablet extended release 24 hr (unknown) (no (unknown) (unknown) guarding or (units (un known) date) rebound. unknown) (unknown) (no (unknown) (unknown) had not occurred. (units (unknown) date) I have discussed unknown) the need for continued evaluation to (unknown) (no (unknown) (unknown) hematoma, or (units (u nknown) date) unknown) (unknown) (no (unknown) (unknown) hilar (units (unkno wn) date) unknown) (unknown) (no (unknown) (unknown) hip (units (unkno wn) date) arthroplasties are unknown) grossly intact. (unknown) (no (unknown) (unknown) his chest pain is (units (unknown) date) related it I blood unknown) pressure. However it has been persistent (unknown) (no (unknown) (unknown) hospitalization. (units (unknown) date) Patient has the unknown) capacity to make decisions. The patient is (unknown) (no (unknown) (unknown) household (units (unkn own) date) members: spouse unknown) (unknown) (no (unknown) (unknown) hydromorphone (units ( unknown) date) [From Dilaudid] unknown) Allergy Severe Hallucinating, Verified 05/03/22 (unknown) (no (unknown) (unknown) hyoscyamine (units (un known) date) [HYOSCYAMINE] unknown) AdvReac Mild LEG Verified 05/03/22 11:58 (unknown) (no (unknown) (unknown) improve. I (units (unk nown) date) emphasized that unknown) leaving against medical advice did not preclude (unknown) (no (unknown) (unknown) in size (units (unkno wn) date) unknown) (unknown) (no (unknown) (unknown) inhaler and that (units (unknown) date) helps. He is unknown) followed by cardiology up at [facility]. He (unknown) (no (unknown) (unknown) intact insight, (units (unknown) date) judgment and unknown) reason. Does not meet criteria for involuntary (unknown) (no (unknown) (unknown) intact (units (unkno wn) date) unknown) (unknown) (no (unknown) (unknown) iron) (units (unkno wn) date) tablet,delayed unknown) release (unknown) (no (unknown) (unknown) is normal in (units (u nknown) date) caliber.? No unknown) hiatal hernias.? (unknown) (no (unknown) (unknown) is not (units (unkno wn) date) reproducible to unknown) palpation (unknown) (no (unknown) (unknown) is (units (unkno wn) date) unknown) (unknown) (no (unknown) (unknown) latex [LATEX] (units ( unknown) date) Allergy Mild RASH unknown) Verified 05/03/22 11:58 (unknown) (no (unknown) (unknown) levalbuterol (units (u nknown) date) tartrate 45 1 puff unknown) inhalation Q4-6H PRN 06/22/18 (unknown) (no (unknown) (unknown) levalbuterol (units (u nknown) date) tartrate [Xopenex unknown) HFA] 45 mcg/actuation HFA aerosol inhaler (unknown) (no (unknown) (unknown) lisinopril 10 mg (units (unknown) date) tablet 10 mg PO unknown) DAILY 12/08/21 02/03/22 (unknown) (no (unknown) (unknown) lisinopril 10 mg (units (unknown) date) tablet unknown) (unknown) (no (unknown) (unknown) lung apices to (units (unknown) date) the iliac crests.? unknown) Maximum intensity projection (MIP) oblique (unknown) (no (unknown) (unknown) mcg/actuation (units ( unknown) date) aerosol inhaler unknown) shortness of breath or wheezing (unknown) (no (unknown) (unknown) mcg/actuation (units ( unknown) date) nasal Allergy unknown) Symptoms ##0 (unknown) (no (unknown) (unknown) meclizine 25 mg (units (unknown) date) tablet 25 mg PO unknown) QID PRN vertigo #30 tabs 10/09/21 (unknown) (no (unknown) (unknown) meclizine 25 mg (units (unknown) date) tablet unknown) (unknown) (no (unknown) (unknown) membranes (units (unkn own) date) unknown) (unknown) (no (unknown) (unknown) metoprolol (units (unk nown) date) succinate 100 mg unknown) 100 mg PO DAILY 02/03/22 02/03/22 (unknown) (no (unknown) (unknown) metoprolol (units (unk nown) date) succinate 100 mg unknown) Tablet Extended Release 24 Hr (unknown) (no (unknown) (unknown) mind' (units (unkno wn) date) unknown) (unknown) (no (unknown) (unknown) montelukast 10 mg (units (unknown) date) Tablet unknown) (unknown) (no (unknown) (unknown) montelukast 10 mg (units (unknown) date) tablet 10 mg PO unknown) DAILY 02/03/22 02/03/22 (unknown) (no (unknown) (unknown) morphine Allergy (units (unknown) date) Severe unknown) Hallucinating, Verified 05/03/22 11:58 (unknown) (no (unknown) (unknown) multivitamin (units (u nknown) date) (Multiple Vitamins unknown) 1 tab PO DAILY ##0 12/20/16 02/03/22 (unknown) (no (unknown) (unknown) multivitamin (units (u nknown) date) [Multiple unknown) Vitamins] 1 EACH tablet (unknown) (no (unknown) (unknown) my concerns for (units (unknown) date) the patient's unknown) health given that a full evaluation and treatment (unknown) (no (unknown) (unknown) not clonidine (units ( unknown) date) twice a day he unknown) does take metoprolol and lisinopril (unknown) (no (unknown) (unknown) or morbidity. (units ( unknown) date) Risk including but unknown) not limited to , permanent disability, (unknown) (no (unknown) (unknown) out of his (units (unk nown) date) unknown) (unknown) (no (unknown) (unknown) oxycodone 5 mg (units (unknown) date) tablet 5 mg PO Q4H unknown) PRN pain, moderate #60 02/07/22 (unknown) (no (unknown) (unknown) oxycodone 5 mg (units (unknown) date) tablet unknown) (unknown) (no (unknown) (unknown) pain (units (unkno wn) date) unknown) (unknown) (no (unknown) (unknown) pain. (units (unkno wn) date) unknown) (unknown) (no (unknown) (unknown) pneumothorax.? (units (unknown) date) unknown) (unknown) (no (unknown) (unknown) presents today (units (unknown) date) with sharp unknown) stabbing chest pain. He says it also off and on for a (unknown) (no (unknown) (unknown) pressure at home (units (unknown) date) regularly it is unknown) normally in the 150s. He does not believe that (unknown) (no (unknown) (unknown) previously had a (units (unknown) date) stress test 3 unknown) years ago. (unknown) (no (unknown) (unknown) prolonged (units (unkn own) date) hospitalization, unknown) prolonged illness, were discussed. I tried offering (unknown) (no (unknown) (unknown) release 24 hr (units ( unknown) date) (Glucotrol XL) unknown) (unknown) (no (unknown) (unknown) renal (units (unkno wn) date) unknown) (unknown) (no (unknown) (unknown) returning here (units (unknown) date) for further unknown) evaluation. I asked the patient to return if they (unknown) (no (unknown) (unknown) sagittal and (units (u nknown) date) unknown) (unknown) (no (unknown) (unknown) side of his chest (units (unknown) date) to go straight unknown) through to his back. He denies nausea or (unknown) (no (unknown) (unknown) spray,suspension (units (unknown) date) unknown) (unknown) (no (unknown) (unknown) stranding, (units (unk nown) date) intramural unknown) hematomas, or wall thickening. (unknown) (no (unknown) (unknown) strongly (units (unkno wn) date) recommend that he unknown) have a stress test and further workup. I also (unknown) (no (unknown) (unknown) substance use (units ( unknown) date) type: does not use unknown) (unknown) (no (unknown) (unknown) surgically absent (units (unknown) date) unknown) (unknown) (no (unknown) (unknown) tablet 4-6) (units (un known) date) unknown) (unknown) (no (unknown) (unknown) tablet) (units (unkno wn) date) unknown) (unknown) (no (unknown) (unknown) tablet,extended (units (unknown) date) release 24 hr unknown) (unknown) (no (unknown) (unknown) tabs (units (unkno wn) date) unknown) (unknown) (no (unknown) (unknown) take 1 tablet by (units (unknown) date) mouth once daily unknown) (unknown) (no (unknown) (unknown) talk with (units ( unknown) date) Fine, who states unknown) chest pain is likely secondary to uncontrolled (unknown) (no (unknown) (unknown) the administration (units (unknown) date) of intravenous unknown) contrast, 2.5 mm thick sections again acquired (unknown) (no (unknown) (unknown) the arch or (units (unk nown) date) descending unknown) thoracic aorta.? No aortic dissection.? No periaortic fat (unknown) (no (unknown) (unknown) the (units (unkno wn) date) unknown) (unknown) (no (unknown) (unknown) thickness.? There (units (unknown) date) are scattered unknown) sigmoid diverticula. No evidence for (unknown) (no (unknown) (unknown) though the (units (unk nown) date) patient declined unknown) my options and insisted on leaving. Because I have (unknown) (no (unknown) (unknown) trazodone 100 mg (units (unknown) date) tablet 400 tab PO unknown) BEDTIME 30 days #120 12/10/21 (unknown) (no (unknown) (unknown) trazodone 100 mg (units (unknown) date) tablet unknown) (unknown) (no (unknown) (unknown) unremarkable.? No (units (unknown) date) suspicious bony unknown) lesions.? No vertebral body compression (unknown) (no (unknown) (unknown) used:? automated (units (unknown) date) exposure control.? unknown) (unknown) (no (unknown) (unknown) varenicline (units (un known) date) [VARENICLINE] unknown) AdvReac Severe Paranoia Verified 05/03/22 11:58 (unknown) (no (unknown) (unknown) vomiting. (units (unkn own) date) Sometimes has unknown) shortness of breath but frequently needs his albuterol (unknown) (no (unknown) (unknown) without (units (unkno wn) date) hydronephrosis.? unknown) Result panel 15 (unknown) (no (unknown) (unknown) (no value) (units (unk nown) date) unknown) (unknown) (no (unknown) (unknown) <Electronically (units (unknown) date) signed by Bridgett Fletcher D.O.> (unknown) (no (unknown) (unknown) 'He gets (units (unkno wn) date) unknown) (unknown) (no (unknown) (unknown) (Xopenex HFA) #15 (units (unknown) date) grams unknown) (unknown) (no (unknown) (unknown) *Continue to take (units (unknown) date) medications as unknown) directed (unknown) (no (unknown) (unknown) *Follow up with (units (unknown) date) your primary care unknown) provider in 2-3 days or call [phone] (unknown) (no (unknown) (unknown) *Return to ER if (units (unknown) date) you should have unknown) chest pain shortness of breath palpitations (unknown) (no (unknown) (unknown) *What to do: You (units (unknown) date) do need stress unknown) test and an echocardiogram. Please call your (unknown) (no (unknown) (unknown) *You have been (units (unknown) date) diagnosed with unknown) high blood pressure in chest (unknown) (no (unknown) (unknown) .? Biliary system (units (unknown) date) is non dilated.? unknown) Pancreas enhances normally.? Spleen is normal (unknown) (no (unknown) (unknown) 0.2 mg PO BID (units ( unknown) date) unknown) (unknown) (no (unknown) (unknown) [phone] (units (unkn own) date) unknown) (unknown) (no (unknown) (unknown) 02/03/22 (units (unkno wn) date) unknown) (unknown) (no (unknown) (unknown) 05/03/22 05/03/22 (units (unknown) date) 05/03/22 unknown) Range/Units (unknown) (no (unknown) (unknown) 05/03/22 12:07 (units (unknown) date) unknown) (unknown) (no (unknown) (unknown) 05/03/22 (units (unkno wn) date) Range/Units unknown) (unknown) (no (unknown) (unknown) 05/03/22 (units (unkno wn) date) unknown) (unknown) (no (unknown) (unknown) 05/04/22 0708 (units ( unknown) date) unknown) (unknown) (no (unknown) (unknown) 0RF (units (unkno wn) date) unknown) (unknown) (no (unknown) (unknown) 1 [...] to severe pain (unknown) (no (unknown) (unknown) 1. No acute (units (un known) date) thoracic or unknown) abdominal aortic dissection or aneurysmal dilatation. (unknown) (no (unknown) (unknown) 10 mg PO DAILY (units (unknown) date) unknown) (unknown) (no (unknown) (unknown) 100 mg PO BID PRN (units (unknown) date) (Reason: unknown) constipation) Qty: 60 2RF (unknown) (no (unknown) (unknown) 100 mg PO DAILY (units (unknown) date) unknown) (unknown) (no (unknown) (unknown) 11:51 05/03/22 (units (unknown) date) unknown) (unknown) (no (unknown) (unknown) 11:58 (units (unkno wn) date) unknown) (unknown) (no (unknown) (unknown) 12 point review (units (unknown) date) of systems is unknown) negative except for those stated above and HPI (unknown) (no (unknown) (unknown) 12:07 12:07 13:18 (units (unknown) date) unknown) (unknown) (no (unknown) (unknown) 12:18 05/03/22 (units (unknown) date) unknown) (unknown) (no (unknown) (unknown) 12:26 05/03/22 (units (unknown) date) unknown) (unknown) (no (unknown) (unknown) 12:30 05/03/22 (units (unknown) date) unknown) (unknown) (no (unknown) (unknown) 12:30 (units (unkno wn) date) unknown) (unknown) (no (unknown) (unknown) 12:45 05/03/22 (units (unknown) date) unknown) (unknown) (no (unknown) (unknown) 13:06 (units (unkno wn) date) unknown) (unknown) (no (unknown) (unknown) 13:07 05/03/22 (units (unknown) date) unknown) (unknown) (no (unknown) (unknown) 13:15 05/03/22 (units (unknown) date) unknown) (unknown) (no (unknown) (unknown) 13:15 (units (unkno wn) date) unknown) (unknown) (no (unknown) (unknown) 13:25 05/03/22 (units (unknown) date) unknown) (unknown) (no (unknown) (unknown) 13:25 (units (unkno wn) date) unknown) (unknown) (no (unknown) (unknown) 13:27 (units (unkno wn) date) unknown) (unknown) (no (unknown) (unknown) 13:30 05/03/22 (units (unknown) date) unknown) (unknown) (no (unknown) (unknown) 13:30 (units (unkno wn) date) unknown) (unknown) (no (unknown) (unknown) 13:46 05/03/22 (units (unknown) date) unknown) (unknown) (no (unknown) (unknown) 13:58 05/03/22 (units (unknown) date) unknown) (unknown) (no (unknown) (unknown) 13:58 (units (unkno wn) date) unknown) (unknown) (no (unknown) (unknown) 14:00 05/03/22 (units (unknown) date) unknown) (unknown) (no (unknown) (unknown) 14:16 05/03/22 (units (unknown) date) unknown) (unknown) (no (unknown) (unknown) 14:16 (units (unkno wn) date) unknown) (unknown) (no (unknown) (unknown) 14:25 (units (unkno wn) date) unknown) (unknown) (no (unknown) (unknown) 14:30 05/03/22 (units (unknown) date) unknown) (unknown) (no (unknown) (unknown) 14:30 (units (unkno wn) date) unknown) (unknown) (no (unknown) (unknown) 14:45 05/03/22 (units (unknown) date) unknown) (unknown) (no (unknown) (unknown) 15:00 05/03/22 (units (unknown) date) unknown) (unknown) (no (unknown) (unknown) 15:00 (units (unkno wn) date) unknown) (unknown) (no (unknown) (unknown) 15:15 05/03/22 (units (unknown) date) unknown) (unknown) (no (unknown) (unknown) 15:15 (units (unkno wn) date) unknown) (unknown) (no (unknown) (unknown) 15:30 05/03/22 (units (unknown) date) unknown) (unknown) (no (unknown) (unknown) 15:45 05/03/22 (units (unknown) date) unknown) (unknown) (no (unknown) (unknown) 15:45 (units (unkno wn) date) unknown) (unknown) (no (unknown) (unknown) 16:00 05/03/22 (units (unknown) date) unknown) (unknown) (no (unknown) (unknown) 16:00 (units (unkno wn) date) unknown) (unknown) (no (unknown) (unknown) 16:15 05/03/22 (units (unknown) date) unknown) (unknown) (no (unknown) (unknown) 16:30 (units (unkno wn) date) unknown) (unknown) (no (unknown) (unknown) 2 tab PO Q4H PRN (units (unknown) date) (Reason: Pain unknown) (Scale Score 4-6)) (unknown) (no (unknown) (unknown) 2. Postoperative (units (unknown) date) changes unknown) redemonstrated at the ascending thoracic aorta.? (unknown) (no (unknown) (unknown) 2.5 mg PO DAILY (units (unknown) date) unknown) (unknown) (no (unknown) (unknown) 25 mg PO QID PRN (units (unknown) date) (Reason: vertigo) unknown) Qty: 30 0RF (unknown) (no (unknown) (unknown) 3. No acute (units (un known) date) intra-abdominal unknown) findings.? Normal appendix.? Diverticulosis.? No (unknown) (no (unknown) (unknown) 325 mg PO [...] Qty: 60 0RF (unknown) (no (unknown) (unknown) 5. EMR states (units ( unknown) date) that he is on sign unknown) twice a day however patient states that he is (unknown) (no (unknown) (unknown) 8:55. (units (unkno wn) date) unknown) (unknown) (no (unknown) (unknown) ? (units (unkno wn) date) unknown) (unknown) (no (unknown) (unknown) ABDOMEN: Soft, (units (unknown) date) nontender. unknown) Normoactive bowel sounds all 4 quadrants. No (unknown) (no (unknown) (unknown) ABDOMEN:? (units (unkn own) date) unknown) (unknown) (no (unknown) (unknown) ALT (<50) IU/L (units (unknown) date) unknown) (unknown) (no (unknown) (unknown) ALT 26 (<50) IU/L (units (unknown) date) unknown) (unknown) (no (unknown) (unknown) ANTIBIOTICS)] (units ( unknown) date) unknown) (unknown) (no (unknown) (unknown) ANXIETY, (units (unkno wn) date) unknown) (unknown) (no (unknown) (unknown) AORTA:? (units (unkno wn) date) Postoperative unknown) changes are noted within the ascending thoracic aorta.? (unknown) (no (unknown) (unknown) AST (17-59) IU/L (units (unknown) date) unknown) (unknown) (no (unknown) (unknown) AST 30 (17-59) (units (unknown) date) IU/L unknown) (unknown) (no (unknown) (unknown) Accession Number: (units (unknown) date) [id number] ?? unknown) (unknown) (no (unknown) (unknown) Acct:[id number] (units (unknown) date) unknown) (unknown) (no (unknown) (unknown) Acetaminophen (units ( unknown) date) (Acetaminophen 325 unknown) Mg Tablet) 975 mg PO NOW ONE (unknown) (no (unknown) (unknown) Achalasia (units (unkn own) date) unknown) (unknown) (no (unknown) (unknown) Activity (units (unkno wn) date) Restrictions/Addit unknown) ional Instructions: (unknown) (no (unknown) (unknown) Admin: 05/03/22 (units (unknown) date) 13:27 Dose: 0.4 mg unknown) (unknown) (no (unknown) (unknown) Age/Sex: 77 / M (units (unknown) date) unknown) (unknown) (no (unknown) (unknown) Albumin (3.5-5.0) (units (unknown) date) g/dL unknown) (unknown) (no (unknown) (unknown) Albumin 3.8 (units (un known) date) (3.5-5.0) g/dL unknown) (unknown) (no (unknown) (unknown) Albumin/Globulin (units (unknown) date) Ratio (1.0-2.8) unknown) (unknown) (no (unknown) (unknown) Albumin/Globulin (units (unknown) date) Ratio 1.3 unknown) (1.0-2.8) (unknown) (no (unknown) (unknown) Alkaline (units (unkno wn) date) Phosphatase unknown) (38-126) U/L (unknown) (no (unknown) (unknown) Alkaline (units (unkno wn) date) Phosphatase 95 unknown) (38-126) U/L (unknown) (no (unknown) (unknown) Allergies (units (unkn own) date) unknown) (unknown) (no (unknown) (unknown) Allergy/AdvReac (units (unknown) date) Type Severity unknown) Reaction Status Date / Time (unknown) (no (unknown) (unknown) Anginal pain (units (u nknown) date) unknown) (unknown) (no (unknown) (unknown) Antibiotics) (units (u nknown) date) unknown) (unknown) (no (unknown) (unknown) Asthma (units (unkno wn) date) unknown) (unknown) (no (unknown) (unknown) At this time (units (u nknown) date) cardiology unknown) recommends outpatient follow up. I have explained to (unknown) (no (unknown) (unknown) Atheromatous (units (u nknown) date) calcifications are unknown) present throughout the arch.? No aneurysmal (unknown) (no (unknown) (unknown) Atrial (units (unkno wn) date) fibrillation unknown) (unknown) (no (unknown) (unknown) BUN (9-20) mg/dL (units (unknown) date) unknown) (unknown) (no (unknown) (unknown) BUN 17 (9-20) (units ( unknown) date) mg/dL unknown) (unknown) (no (unknown) (unknown) BUN/Creatinine (units (unknown) date) Ratio (6-22) unknown) (unknown) (no (unknown) (unknown) BUN/Creatinine (units (unknown) date) Ratio 24.3 H unknown) (6-22) (unknown) (no (unknown) (unknown) Baso # (Auto) (units ( unknown) date) (0-100) /uL unknown) (unknown) (no (unknown) (unknown) Baso # (Auto) 100 (units (unknown) date) (0-100) /uL unknown) (unknown) (no (unknown) (unknown) Baso % (Auto) (units ( unknown) date) (0-2) % unknown) (unknown) (no (unknown) (unknown) Baso % (Auto) 1.0 (units (unknown) date) (0-2) % unknown) (unknown) (no (unknown) (unknown) Bilateral (units (unkn own) date) unknown) (unknown) (no (unknown) (unknown) Blood Pressure (units (unknown) date) 151/87 H unknown) (unknown) (no (unknown) (unknown) Blood Pressure (units (unknown) date) 159/81 H unknown) (unknown) (no (unknown) (unknown) Blood Pressure (units (unknown) date) 165/88 H 176/82 H unknown) (unknown) (no (unknown) (unknown) Blood Pressure (units (unknown) date) 171/81 H unknown) (unknown) (no (unknown) (unknown) Blood Pressure (units (unknown) date) 174/72 H 197/84 H unknown) (unknown) (no (unknown) (unknown) Blood Pressure (units (unknown) date) 176/82 H 183/78 H unknown) (unknown) (no (unknown) (unknown) Blood Pressure (units (unknown) date) 180/89 H unknown) (unknown) (no (unknown) (unknown) Blood Pressure (units (unknown) date) 185/95 H unknown) (unknown) (no (unknown) (unknown) Blood Pressure (units (unknown) date) 187/88 H unknown) (unknown) (no (unknown) (unknown) Blood Pressure (units (unknown) date) 189/87 H unknown) (unknown) (no (unknown) (unknown) Blood Pressure (units (unknown) date) 196/90 H 193/86 H unknown) (unknown) (no (unknown) (unknown) Blood Pressure (units (unknown) date) 199/90 H 185/89 H unknown) (unknown) (no (unknown) (unknown) Blood Pressure (units (unknown) date) 200/86 H 181/92 H unknown) (unknown) (no (unknown) (unknown) Blood Pressure (units (unknown) date) 210/90 H 05/03/22 unknown) 11:51 (unknown) (no (unknown) (unknown) Blood Pressure (units (unknown) date) 210/90 H 176/94 H unknown) 187/88 H (unknown) (no (unknown) (unknown) Blood Pressure (units (unknown) date) unknown) (unknown) (no (unknown) (unknown) Bones and chest (units (unknown) date) wall:? No axillary unknown) adenopathy by size criteria.? Thyroid gland (unknown) (no (unknown) (unknown) Bones:? No (units (unk nown) date) suspicious bony unknown) lesions.? No vertebral body compression fractures.? (unknown) (no (unknown) (unknown) CARDIOVASCULAR: (units (unknown) date) Regular rate and unknown) rhythm without murmurs, rubs or gallops. Pain (unknown) (no (unknown) (unknown) CARDIOVASCULAR: (units (unknown) date) See HPI unknown) (unknown) (no (unknown) (unknown) CHEST:? (units (unkno wn) date) unknown) (unknown) (no (unknown) (unknown) CK-MB (CK-2) (units (u nknown) date) (<2.37) ng/mL unknown) (unknown) (no (unknown) (unknown) CK-MB (CK-2) 4.44 (units (unknown) date) H (<2.37) ng/mL unknown) (unknown) (no (unknown) (unknown) CK-MB (CK-2) Rel (units (unknown) date) Index (1.5-5.0) % unknown) (unknown) (no (unknown) (unknown) CK-MB (CK-2) Rel (units (unknown) date) Index 4.3 unknown) (1.5-5.0) % (unknown) (no (unknown) (unknown) COMPARISON:? (units (u nknown) date) [facility], unknown) CT, CT ANGIO CHEST ABDOMEN PELVIS, 08/28/2020, (unknown) (no (unknown) (unknown) COPD (chronic (units ( unknown) date) obstructive unknown) pulmonary disease) (unknown) (no (unknown) (unknown) CT scan - chest: (units (unknown) date) unknown) (unknown) (no (unknown) (unknown) Calcium (units (unkno wn) date) (8.4-10.2) mg/dL unknown) (unknown) (no (unknown) (unknown) Calcium 8.8 (units (un known) date) (8.4-10.2) mg/dL unknown) (unknown) (no (unknown) (unknown) Call your (units (unkn own) date) tower hand unknown) tomorrow to schedule appointment as soon as possible (unknown) (no (unknown) (unknown) Carbon Dioxide (units (unknown) date) (22-32) mmol/L unknown) (unknown) (no (unknown) (unknown) Carbon Dioxide 25 (units (unknown) date) (22-32) mmol/L unknown) (unknown) (no (unknown) (unknown) Central and (units (un known) date) peripheral airways unknown) are patent and normal in caliber.? (unknown) (no (unknown) (unknown) Cervical spinal (units (unknown) date) stenosis unknown) (unknown) (no (unknown) (unknown) Chest pain, (units (un known) date) Hypertension unknown) (unknown) (no (unknown) (unknown) Chief Complaint: (units (unknown) date) Chest Pain unknown) (unknown) (no (unknown) (unknown) Chloride (98-107) (units (unknown) date) mmol/L unknown) (unknown) (no (unknown) (unknown) Chloride 102 (units (u nknown) date) (98-107) mmol/L unknown) (unknown) (no (unknown) (unknown) 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 (10/22/16) (unknown) (no (unknown) (unknown) Clinical (units (unkno wn) date) Impression: unknown) (unknown) (no (unknown) (unknown) Coronary artery (units (unknown) date) disease unknown) (unknown) (no (unknown) (unknown) Course (units (unkno wn) date) unknown) (unknown) (no (unknown) (unknown) Creatinine (units (unk nown) date) (0.66-1.25) mg/dL unknown) (unknown) (no (unknown) (unknown) Creatinine 0.70 (units (unknown) date) (0.66-1.25) mg/dL unknown) (unknown) (no (unknown) (unknown) DIZZINESS (units (unkn own) date) unknown) (unknown) (no (unknown) (unknown) : 1945 (units (unknown) date) Acct:[id number] unknown) (unknown) (no (unknown) (unknown) : 1945 (units (unknown) date) unknown) (unknown) (no (unknown) (unknown) Kimmy Gomez, (units (unknown) date) [Primary Care unknown) Provider] (unknown) (no (unknown) (unknown) Date of Service: (units (unknown) date) 05/03/22 unknown) (unknown) (no (unknown) (unknown) Departure (units (unkn own) date) unknown) (unknown) (no (unknown) (unknown) Dictated by: Nayeli (units (unknown) date) Clifford Reynolds on unknown) 05/03/2022 at 13:39 ? ? (unknown) (no (unknown) (unknown) Discharge Plan (units (unknown) date) unknown) (unknown) (no (unknown) (unknown) Discontinued (units (u nknown) date) Medications unknown) (unknown) (no (unknown) (unknown) Documented By: ADDIE (units (unknown) date) unknown) (unknown) (no (unknown) (unknown) ECG Data (units (unkno wn) date) unknown) (unknown) (no (unknown) (unknown) ER Physician: (units ( unknown) date) Bridgett Fletcher unknown) D.O. (unknown) (no (unknown) (unknown) EXPOSURE (units (unkno wn) date) unknown) (unknown) (no (unknown) (unknown) EXTREMITIES: (units (u nknown) date) Normal range of unknown) motion, no clubbing or edema. Neurovascularly (unknown) (no (unknown) (unknown) Emergency Report (units (unknown) date) unknown) (unknown) (no (unknown) (unknown) Eos # (Auto) (units (u nknown) date) (0-450) /uL unknown) (unknown) (no (unknown) (unknown) Eos # (Auto) 200 (units (unknown) date) (0-450) /uL unknown) (unknown) (no (unknown) (unknown) Eos % (Auto) (units (u nknown) date) (2-4) % unknown) (unknown) (no (unknown) (unknown) Eos % (Auto) 3.4 (units (unknown) date) (2-4) % unknown) (unknown) (no (unknown) (unknown) Esophagus (units (unkn own) date) unknown) (unknown) (no (unknown) (unknown) Estimated GFR > (units (unknown) date) 60 (>60) mL/min unknown) (unknown) (no (unknown) (unknown) Estimated GFR (units ( unknown) date) (>60) mL/min unknown) (unknown) (no (unknown) (unknown) Exam (units (unkno wn) date) unknown) (unknown) (no (unknown) (unknown) FINDINGS:? (units (unk nown) date) unknown) (unknown) (no (unknown) (unknown) Family History (units (unknown) date) (Reviewed 05/03/22 unknown) @ 12:51 by Bridgett Fletcher DO) (unknown) (no (unknown) (unknown) Father (units (unkno wn) date) Hypertension unknown) (unknown) (no (unknown) (unknown) GASTROINTESTINAL: (units (unknown) date) Denies nausea, unknown) vomiting, abdominal pain, diarrhea, (unknown) (no (unknown) (unknown) GENERAL: Alert (units (unknown) date) 77-year-old male unknown) and in no acute distress. (unknown) (no (unknown) (unknown) GENERAL: Denies (units (unknown) date) chills, fatigue, unknown) malaise, fever, sweats, travel (unknown) (no (unknown) (unknown) : Denies (units (unkn own) date) dysuria, unknown) frequency, incontinence, hematuria, urinary retention, flank (unknown) (no (unknown) (unknown) General (units (unkno wn) date) unknown) (unknown) (no (unknown) (unknown) Genitourinary:? (units (unknown) date) Bladder wall unknown) thickness is normal.? (unknown) (no (unknown) (unknown) Globulin (units (unkno wn) date) (1.7-4.1) g/dL unknown) (unknown) (no (unknown) (unknown) Globulin 3.0 (units (u nknown) date) (1.7-4.1) g/dL unknown) (unknown) (no (unknown) (unknown) Glucose (80-110) (units (unknown) date) mg/dL unknown) (unknown) (no (unknown) (unknown) Glucose 155 H (units ( unknown) date) (80-110) mg/dL [...] mucous (unknown) (no (unknown) (unknown) HPI - Chest Pain (units (unknown) date) unknown) (unknown) (no (unknown) (unknown) HPI narrative: (units (unknown) date) unknown) (unknown) (no (unknown) (unknown) Hct (41-53) % (units ( unknown) date) unknown) (unknown) (no (unknown) (unknown) Hct 38.4 L (units (unk nown) date) (41-53) % unknown) (unknown) (no (unknown) (unknown) Hgb (13.5-17.5) (units (unknown) date) g/dL unknown) (unknown) (no (unknown) (unknown) Hgb 13.3 L (units (unk nown) date) (13.5-17.5) g/dL [...] (unknown) (unknown) INDICATIONS:? (units ( unknown) date) chest pain with unknown) prior dissection (unknown) (no (unknown) (unknown) INHIBITOR] (units (unk nown) date) unknown) (unknown) (no (unknown) (unknown) Image quality:? (units (unknown) date) Excellent.? unknown) (unknown) (no (unknown) (unknown) Imaging Data (units (u nknown) date) unknown) (unknown) (no (unknown) (unknown) Inferior vena (units ( unknown) date) cava is normal in unknown) morphology.? (unknown) (no (unknown) (unknown) Inhibitor MUSCLES (units (unknown) date) unknown) (unknown) (no (unknown) (unknown) Initial Vital (units ( unknown) date) Signs unknown) (unknown) (no (unknown) (unknown) Initial Vital (units ( unknown) date) Signs: unknown) (unknown) (no (unknown) (unknown) Instructions: (units ( unknown) date) High Blood unknown) Pressure, DI for Chest Pain (unknown) (no (unknown) (unknown) Interpretation: (units (unknown) date) unknown) (unknown) (no (unknown) (unknown) Ischemic (units (unkno wn) date) cardiomyopathy unknown) (unknown) (no (unknown) (unknown) [facility] (units (unknown) date) [address] unknown) [place] [address] (unknown) (no (unknown) (unknown) JERKING, (units (unkno wn) date) unknown) (unknown) (no (unknown) (unknown) Lab Data (units (unkno wn) date) unknown) (unknown) (no (unknown) (unknown) Lab Results (units (un known) date) unknown) (unknown) (no (unknown) (unknown) Label Comments: (units (unknown) date) unknown) (unknown) (no (unknown) (unknown) Labs: (units (unkno wn) date) unknown) (unknown) (no (unknown) (unknown) Last Admin: (units (un known) date) 05/03/22 13:58 unknown) Dose: 0.4 mg (unknown) (no (unknown) (unknown) Last Admin: (units (un known) date) 05/03/22 14:22 unknown) Dose: 975 mg (unknown) (no (unknown) (unknown) Limitations: no (units (unknown) date) limitations unknown) (unknown) (no (unknown) (unknown) Lipase (23-300) (units (unknown) date) U/L unknown) (unknown) (no (unknown) (unknown) Lipase 73 (units (unkn own) date) (23-300) U/L unknown) (unknown) (no (unknown) (unknown) Loc: ED (units (unkno wn) date) unknown) (unknown) (no (unknown) (unknown) Lungs and (units (unkn own) date) pleura:? No acute unknown) airspace opacities.? No pleural effusions or (unknown) (no (unknown) (unknown) Lymph # (Auto) (units (unknown) date) ([phone]) /uL unknown) (unknown) (no (unknown) (unknown) Lymph # (Auto) (units (unknown) date) 1100 ([phone]) unknown) /uL (unknown) (no (unknown) (unknown) Lymph % (Auto) (units (unknown) date) (25-40) % unknown) (unknown) (no (unknown) (unknown) Lymph % (Auto) (units (unknown) date) 16.6 L (25-40) % unknown) (unknown) (no (unknown) (unknown) MCH (26-34) PG (units (unknown) date) unknown) (unknown) (no (unknown) (unknown) MCH 30.2 (26-34) (units (unknown) date) PG unknown) (unknown) (no (unknown) (unknown) MCHC (30-36) % (units (unknown) date) unknown) (unknown) (no (unknown) (unknown) MCHC 34.6 (30-36) (units (unknown) date) % unknown) (unknown) (no (unknown) (unknown) MCV (80-100) fL (units (unknown) date) unknown) (unknown) (no (unknown) (unknown) MCV 87.3 (80-100) (units (unknown) date) fL unknown) (unknown) (no (unknown) (unknown) MDM - Chest Pain (units (unknown) date) unknown) (unknown) (no (unknown) (unknown) MDM Narrative (units ( unknown) date) unknown) (unknown) (no (unknown) (unknown) MINUTES (units (unkno wn) date) unknown) (unknown) (no (unknown) (unknown) MR#: [id number] (units (unknown) date) unknown) (unknown) (no (unknown) (unknown) MUSCULOSKELETAL: (units (unknown) date) Denies weakness, unknown) joint pain, or bony pain (unknown) (no (unknown) (unknown) Magnesium (units (unkn own) date) (1.6-2.3) mg/dL unknown) (unknown) (no (unknown) (unknown) Magnesium 1.9 (units ( unknown) date) (1.6-2.3) mg/dL unknown) (unknown) (no (unknown) (unknown) Jas Thomson MD (units (unknown) date) [Non-Staff] unknown) (unknown) (no (unknown) (unknown) Mediastinum:? (units ( unknown) date) Heart size is unknown) normal.? No pericardial effusion.? Atheromatous (unknown) (no (unknown) (unknown) Medical History (units (unknown) date) (Reviewed 05/03/22 unknown) @ 12:51 by Bridgett Fletcher DO) (unknown) (no (unknown) (unknown) Medical decision (units (unknown) date) making narrative: unknown) (unknown) (no (unknown) (unknown) Medication (units (unk nown) date) Instructions unknown) Recorded Confirmed (unknown) (no (unknown) (unknown) Medication (units (unk nown) date) Instructions unknown) Recorded (unknown) (no (unknown) (unknown) Miscellaneous:? (units (unknown) date) No inguinal unknown) hernias or adenopathy.? No ventral hernias.? (unknown) (no (unknown) (unknown) Miscellaneous:? (units (unknown) date) No ventral unknown) hernias.? (unknown) (no (unknown) (unknown) Mode of arrival: (units (unknown) date) Ambulatory unknown) (unknown) (no (unknown) (unknown) [place] # (Auto) (units ( unknown) date) (0-900) /uL unknown) (unknown) (no (unknown) (unknown) [place] # (Auto) 600 (units (unknown) date) (0-900) /uL unknown) (unknown) (no (unknown) (unknown) [place] % (Auto) (units ( unknown) date) (3-14) % unknown) (unknown) (no (unknown) (unknown) [place] % (Auto) 8.8 (units (unknown) date) (3-14) % unknown) (unknown) (no (unknown) (unknown) Mother (units (unknown) date) Stroke unknown) (unknown) (no (unknown) (unknown) NAUSEA W/I (units (unk nown) date) unknown) (unknown) (no (unknown) (unknown) NEUROLOGIC: (units (un known) date) Denies weakness, unknown) dizziness, headache, numbness, change in speech, (unknown) (no (unknown) (unknown) NEUROLOGICAL: (units ( unknown) date) Alert and oriented unknown) x4.Normal gait and speech. (unknown) (no (unknown) (unknown) Narcotic (units (unkno wn) date) dependence unknown) (unknown) (no (unknown) (unknown) Narrative: (units (unk nown) date) unknown) (unknown) (no (unknown) (unknown) Neck pain, (units (unk nown) date) chronic unknown) (unknown) (no (unknown) (unknown) Neut # (Auto) (units ( unknown) date) (2050-3653) /uL unknown) (unknown) (no (unknown) (unknown) Neut # (Auto) (units ( unknown) date) 4800 (0774-5996) unknown) /uL (unknown) (no (unknown) (unknown) Neut % (Auto) (units ( unknown) date) (50-75) % unknown) (unknown) (no (unknown) (unknown) Neut % (Auto) (units ( unknown) date) 70.2 (50-75) % unknown) (unknown) (no (unknown) (unknown) Nitroglycerin (units ( unknown) date) (Nitroglycerin 0.4 unknown) Mg Sl Tab) 0.4 mg SL [id number] PRN (unknown) (no (unknown) (unknown) No Action (units (unkn own) date) unknown) (unknown) (no (unknown) (unknown) Nodes and (units (unkn own) date) vessels:? No unknown) retroperitoneal or mesenteric adenopathy by size (unknown) (no (unknown) (unknown) Normal sinus (units (u nknown) date) rhythm rate 63 unknown) rate here interval 200 QRS [address] changes (unknown) (no (unknown) (unknown) Normal sinus (units (u nknown) date) rhythm rate 70 [place] unknown) interval 222 QRS 86 (unknown) (no (unknown) (unknown) Normal sinus (units (u nknown) date) rhythm rate 70 unknown) p.r. interval 198 QRS [address] changes (unknown) (no (unknown) (unknown) Ordered: (units (unkno wn) date) unknown) (unknown) (no (unknown) (unknown) Ordering (units (unkno wn) date) Provider: unknown) Bridgett Fletcher D.O. (unknown) (no (unknown) (unknown) Orders (units (unkno wn) date) unknown) (unknown) (no (unknown) (unknown) Oxygen Delivery (units (unknown) date) Method 05/03/22 unknown) 11:51 (unknown) (no (unknown) (unknown) Oxygen Delivery (units (unknown) date) Method Room Air unknown) Room Air (unknown) (no (unknown) (unknown) Oxygen Delivery (units (unknown) date) Method Room Air unknown) (unknown) (no (unknown) (unknown) Oxygen Delivery (units (unknown) date) Method unknown) (unknown) (no (unknown) (unknown) PELVIS:? (units (unkno wn) date) unknown) (unknown) (no (unknown) (unknown) PRN Reason: Chest (units (unknown) date) Pain unknown) (unknown) (no (unknown) (unknown) PROCEDURE:? CT (units (unknown) date) ANGIO CHEST unknown) ABDOMEN PELVIS (unknown) (no (unknown) (unknown) PSYCHIATRIC: No (units (unknown) date) concerning unknown) psychosocial issues. (unknown) (no (unknown) (unknown) Patient (units (unkno wn) date) Disposition: Home unknown) (unknown) (no (unknown) (unknown) Patient History (units (unknown) date) unknown) (unknown) (no (unknown) (unknown) Patient is a (units (u nknown) date) 77-year-old male unknown) history of CABG aortic dissection, diabetes, (unknown) (no (unknown) (unknown) Patient: (units (unkno wn) date) Dominic Viveros unknown) MR#: M (unknown) (no (unknown) (unknown) Patient: (units (unkno wn) date) Dominic Viveros unknown) (unknown) (no (unknown) (unknown) Peritoneum and (units (unknown) date) bowel:? No free unknown) fluid or air.? Bowel loops are normal in caliber (unknown) (no (unknown) (unknown) Plt Count (units (unkn own) date) (150-400) X103/uL unknown) (unknown) (no (unknown) (unknown) Plt Count 188 (units ( unknown) date) (150-400) X103/uL unknown) (unknown) (no (unknown) (unknown) Potassium (units (unkn own) date) (3.4-5.1) mmol/L unknown) (unknown) (no (unknown) (unknown) Potassium 4.0 (units ( unknown) date) (3.4-5.1) mmol/L unknown) (unknown) (no (unknown) (unknown) Precontrast 5 mm (units (unknown) date) thick sections unknown) acquired from the lung apices to the iliac (unknown) (no (unknown) (unknown) Prescriptions: (units (unknown) date) unknown) (unknown) (no (unknown) (unknown) Previous Rx's (units ( unknown) date) unknown) (unknown) (no (unknown) (unknown) Procedure: CT (units ( unknown) date) angio chest unknown) abdomen pelvis (unknown) (no (unknown) (unknown) Pulse Oximetry 95 (units (unknown) date) 95 unknown) (unknown) (no (unknown) (unknown) Pulse Oximetry 95 (units (unknown) date) unknown) (unknown) (no (unknown) (unknown) Pulse Oximetry 96 (units (unknown) date) 05/03/22 11:51 unknown) (unknown) (no (unknown) (unknown) Pulse Oximetry 96 (units (unknown) date) 99 unknown) (unknown) (no (unknown) (unknown) Pulse Oximetry 96 (units (unknown) date) unknown) (unknown) (no (unknown) (unknown) Pulse Oximetry 97 (units (unknown) date) 95 unknown) (unknown) (no (unknown) (unknown) Pulse Oximetry 97 (units (unknown) date) 99 unknown) (unknown) (no (unknown) (unknown) Pulse Oximetry 97 (units (unknown) date) unknown) (unknown) (no (unknown) (unknown) Pulse Oximetry 98 (units (unknown) date) 96 unknown) (unknown) (no (unknown) (unknown) Pulse Oximetry 98 (units (unknown) date) unknown) (unknown) (no (unknown) (unknown) Pulse Oximetry (units (unknown) date) unknown) (unknown) (no (unknown) (unknown) Pulse Rate 62 63 (units (unknown) date) unknown) (unknown) (no (unknown) (unknown) Pulse Rate 62 65 (units (unknown) date) unknown) (unknown) (no (unknown) (unknown) Pulse Rate 63 69 (units (unknown) date) unknown) (unknown) (no (unknown) (unknown) Pulse Rate 63 (units ( unknown) date) unknown) (unknown) (no (unknown) (unknown) Pulse Rate 64 64 (units (unknown) date) unknown) (unknown) (no (unknown) (unknown) Pulse Rate 64 79 (units (unknown) date) unknown) (unknown) (no (unknown) (unknown) Pulse Rate 65 (units ( unknown) date) 05/03/22 11:51 unknown) (unknown) (no (unknown) (unknown) Pulse Rate 65 65 (units (unknown) date) 64 unknown) (unknown) (no (unknown) (unknown) Pulse Rate 65 65 (units (unknown) date) unknown) (unknown) (no (unknown) (unknown) Pulse Rate 65 (units ( unknown) date) unknown) (unknown) (no (unknown) (unknown) Pulse Rate 66 62 (units (unknown) date) unknown) (unknown) (no (unknown) (unknown) Pulse Rate 67 63 (units (unknown) date) unknown) (unknown) (no (unknown) (unknown) Pulse Rate 67 (units ( unknown) date) unknown) (unknown) (no (unknown) (unknown) Pulse Rate 74 (units ( unknown) date) unknown) (unknown) (no (unknown) (unknown) RBC (4.5-5.9) (units ( unknown) date) X106/uL unknown) (unknown) (no (unknown) (unknown) RBC 4.40 L (units (unk nown) date) (4.5-5.9) X106/uL unknown) (unknown) (no (unknown) (unknown) RDW (11.6-14.8) % (units (unknown) date) unknown) (unknown) (no (unknown) (unknown) RDW 13.6 (units (unkno wn) date) (11.6-14.8) % unknown) (unknown) (no (unknown) (unknown) RESPIRATORY: (units (u nknown) date) Breath sounds unknown) equal bilaterally, no wheezes rales or rhonchi. (unknown) (no (unknown) (unknown) RESPIRATORY: (units (u nknown) date) Denies dyspnea, unknown) cough, wheezing, hemoptysis, sputum. (unknown) (no (unknown) (unknown) Radiologist's (units ( unknown) date) Impression: unknown) (unknown) (no (unknown) (unknown) Referrals: (units (unk nown) date) unknown) (unknown) (no (unknown) (unknown) Related Data (units (u nknown) date) unknown) (unknown) (no (unknown) (unknown) Respiratory Rate (units (unknown) date) 14 unknown) (unknown) (no (unknown) (unknown) Respiratory Rate (units (unknown) date) 17 21 unknown) (unknown) (no (unknown) (unknown) Respiratory Rate (units (unknown) date) 18 05/03/22 11:51 unknown) (unknown) (no (unknown) (unknown) Respiratory Rate (units (unknown) date) 18 18 unknown) (unknown) (no (unknown) (unknown) Respiratory Rate (units (unknown) date) 19 22 unknown) (unknown) (no (unknown) (unknown) Respiratory Rate (units (unknown) date) 19 25 H unknown) (unknown) (no (unknown) (unknown) Respiratory Rate (units (unknown) date) 20 unknown) (unknown) (no (unknown) (unknown) Respiratory Rate (units (unknown) date) 21 22 unknown) (unknown) (no (unknown) (unknown) Respiratory Rate (units (unknown) date) 21 23 unknown) (unknown) (no (unknown) (unknown) Respiratory Rate (units (unknown) date) 21 unknown) (unknown) (no (unknown) (unknown) Respiratory Rate (units (unknown) date) 22 unknown) (unknown) (no (unknown) (unknown) Respiratory Rate (units (unknown) date) 23 unknown) (unknown) (no (unknown) (unknown) Respiratory Rate (units (unknown) date) 24 19 unknown) (unknown) (no (unknown) (unknown) Respiratory Rate (units (unknown) date) unknown) (unknown) (no (unknown) (unknown) Result diagrams: (units (unknown) date) unknown) (unknown) (no (unknown) (unknown) Review of Systems (units (unknown) date) unknown) (unknown) (no (unknown) (unknown) Rx [...] nown) date) unknown) (unknown) (no (unknown) (unknown) Signed (units (unkno wn) date) unknown) (unknown) (no (unknown) (unknown) Smoking Status: (units (unknown) date) Former smoker unknown) (unknown) (no (unknown) (unknown) Social History (units (unknown) date) (Reviewed 05/03/22 unknown) @ 12:51 by Bridgett Fletcher DO) (unknown) (no (unknown) (unknown) Sodium (137-145) (units (unknown) date) mmol/L unknown) (unknown) (no (unknown) (unknown) Sodium 137 (units (unk nown) date) (137-145) mmol/L unknown) (unknown) (no (unknown) (unknown) Solid organs:? (units (unknown) date) Liver is normal in unknown) size and enhancement.? Gallbladder is (unknown) (no (unknown) (unknown) Source: patient (units (unknown) date) unknown) (unknown) (no (unknown) (unknown) Stated Complaint: (units (unknown) date) Chest pains, Pain unknown) in arm (unknown) (no (unknown) (unknown) [id number]-CyH (units (unknown) date) Reductase AdvReac unknown) Mild WEAK Verified 05/03/22 11:58 (unknown) (no (unknown) (unknown) Stop: 05/03/22 (units (unknown) date) 14:15 unknown) (unknown) (no (unknown) (unknown) Substance Use (units ( unknown) date) Type: does not use unknown) (unknown) (no (unknown) (unknown) Sulfa (units (unkno wn) date) (Sulfonamide unknown) Allergy Mild RASH Verified 05/03/22 11:58 (unknown) (no (unknown) (unknown) Surgical History (units (unknown) date) (Reviewed 05/03/22 unknown) @ 12:51 by Bridgett Fletcher DO) (unknown) (no (unknown) (unknown) TECHNIQUE:? (units (un known) date) unknown) (unknown) (no (unknown) (unknown) Temperature 98.4 (units (unknown) date) F 05/03/22 11:51 unknown) (unknown) (no (unknown) (unknown) Temperature 98.4 (units (unknown) date) F unknown) (unknown) (no (unknown) (unknown) Temperature (units (un known) date) unknown) (unknown) (no (unknown) (unknown) Time Seen by (units (u nknown) date) Provider: 05/03/22 unknown) 12:16 (unknown) (no (unknown) (unknown) Total Bilirubin (units (unknown) date) (0.2-1.3) mg/dL unknown) (unknown) (no (unknown) (unknown) Total Bilirubin (units (unknown) date) 0.3 (0.2-1.3) unknown) mg/dL (unknown) (no (unknown) (unknown) Total Creatine (units (unknown) date) Kinase (55-170) unknown) U/L (unknown) (no (unknown) (unknown) Total Creatine (units (unknown) date) Kinase 103 unknown) (55-170) U/L (unknown) (no (unknown) (unknown) Total Protein (units ( unknown) date) (6.3-8.2) g/dL unknown) (unknown) (no (unknown) (unknown) Total Protein 6.8 (units (unknown) date) (6.3-8.2) g/dL unknown) (unknown) (no (unknown) (unknown) Tried for 3-1/2 (units (unknown) date) hours to get in unknown) touch with [facility]. Finally did (unknown) (no (unknown) (unknown) Troponin I < (units (u nknown) date) 0.012 (0.01-0.034) unknown) ng/mL (unknown) (no (unknown) (unknown) Vasculature:? The (units (unknown) date) celiac axis, SMA, unknown) and FLORI are widely patent.? The bilateral (unknown) (no (unknown) (unknown) Ventricular (units (un known) date) bigeminy unknown) (unknown) (no (unknown) (unknown) Visit Report (units (u nknown) date) Forms: Patient unknown) Portal/API (unknown) (no (unknown) (unknown) Vital Signs - 8 (units (unknown) date) hr unknown) (unknown) (no (unknown) (unknown) Vital Signs (units (un known) date) unknown) (unknown) (no (unknown) (unknown) Vital signs: (units (u nknown) date) unknown) (unknown) (no (unknown) (unknown) W/EXTENDED (units (unk nown) date) unknown) (unknown) (no (unknown) (unknown) WBC (4.5-11.0) (units (unknown) date) X103/uL unknown) (unknown) (no (unknown) (unknown) WBC 6.8 (units (unkno wn) date) (4.5-11.0) X103/uL unknown) (unknown) (no (unknown) (unknown) [place] [facility] (units (unknown) date) for the same. He unknown) had a full workup and was discharged home. (unknown) (no (unknown) (unknown) You have not had (units (unknown) date) a complete workup unknown) you need a stress test and echocardiogram (unknown) (no (unknown) (unknown) Zyrtec 10 mg (units (u nknown) date) Capsule unknown) (unknown) (no (unknown) (unknown) [Embedded Image (units (unknown) date) Not Available] unknown) (unknown) (no (unknown) (unknown) [[id number] (units (unknown) date) REDUCTASE unknown) (unknown) (no (unknown) (unknown) [SULFA (units (unkno wn) date) (SULFONAMIDE unknown) (unknown) (no (unknown) (unknown) abdominal aorta.? (units (unknown) date) No aneurysmal unknown) dilatation, wall thickening, intramural (unknown) (no (unknown) (unknown) acetaminophen 300 (units (unknown) date) mg-codeine 30 mg 2 unknown) tab PO Q4H PRN Pain (Scale Score 02/03/22 (unknown) (no (unknown) (unknown) acetaminophen-cod (units (unknown) date) eine 300-30 mg unknown) tablet (unknown) (no (unknown) (unknown) acute (units (unkno wn) date) unknown) (unknown) (no (unknown) (unknown) adenopathy by (units ( unknown) date) size criteria.? unknown) Central pulmonary arteries are normal in size.? (unknown) (no (unknown) (unknown) alcohol intake (units (unknown) date) frequency: 0-2 unknown) drinks per day (unknown) (no (unknown) (unknown) alcohol intake: (units (unknown) date) current unknown) (unknown) (no (unknown) (unknown) and enhancement.? (units (unknown) date) No adrenal unknown) nodules.? Both kidneys are normal in size and (unknown) (no (unknown) (unknown) and wall (units (unkno wn) date) unknown) (unknown) (no (unknown) (unknown) appendix is thin (units (unknown) date) walled and gas unknown) filled. (unknown) (no (unknown) (unknown) arteries are (units (u nknown) date) patent.? Dense unknown) atheromatous calcifications are present throughout (unknown) (no (unknown) (unknown) at least once a (units (unknown) date) day. He may need unknown) blood pressure medication adjustment. This (unknown) (no (unknown) (unknown) blood pressure. (units (unknown) date) He has 2- unknown) troponins. He states that he takes his blood (unknown) (no (unknown) (unknown) both patient and (units (unknown) date) at the full unknown) cardiac workup has not been done I still (unknown) (no (unknown) (unknown) buprenorphine (units ( unknown) date) [BUPRENORPHINE] unknown) AdvReac Mild NAUSEA, Verified 05/03/22 11:58 (unknown) (no (unknown) (unknown) calcifications (units (unknown) date) are present within unknown) the coronary arteries.? 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 unknown) Also please check your blood pressure regularly (unknown) (no (unknown) (unknown) celecoxib (units (unkn own) date) [CELECOXIB] unknown) Allergy Mild SWELLING Verified 05/03/22 11:58 (unknown) (no (unknown) (unknown) cetirizine 10 mg (units (unknown) date) capsule (Zyrtec) unknown) 10 mg PO DAILY 05/22/19 02/03/22 (unknown) (no (unknown) (unknown) change or worsen (units (unknown) date) in any way shape unknown) or form. (unknown) (no (unknown) (unknown) clonidine HCl 0.1 (units (unknown) date) mg tablet 0.2 mg unknown) PO BID 12/08/21 02/03/22 (unknown) (no (unknown) (unknown) clonidine HCl 0.1 (units (unknown) date) mg tablet unknown) (unknown) (no (unknown) (unknown) confusion (units (unkn own) date) unknown) (unknown) (no (unknown) (unknown) constipation, (units ( unknown) date) melena. unknown) (unknown) (no (unknown) (unknown) coronal reformats (units (unknown) date) were then unknown) acquired.? For radiation dose reduction, the (unknown) (no (unknown) (unknown) could be causing (units (unknown) date) and affecting some unknown) of your chest discomfort. (unknown) (no (unknown) (unknown) crests.? After (units (unknown) date) unknown) (unknown) (no (unknown) (unknown) criteria.? (units (unk nown) date) unknown) (unknown) (no (unknown) (unknown) diazepam [From (units (unknown) date) Valium] Allergy unknown) Severe Confusion Verified 05/03/22 11:58 (unknown) (no (unknown) (unknown) dilatation of (units ( unknown) date) unknown) (unknown) (no (unknown) (unknown) dissection. (units (un known) date) unknown) (unknown) (no (unknown) (unknown) diverticulitis. (units (unknown) date) The unknown) (unknown) (no (unknown) (unknown) diverticulitis.? (units (unknown) date) unknown) (unknown) (no (unknown) (unknown) dizziness or any (units (unknown) date) new, worsening or unknown) concerning symptoms (unknown) (no (unknown) (unknown) docusate sodium (units (unknown) date) 100 mg Capsule unknown) (unknown) (no (unknown) (unknown) docusate sodium (units (unknown) date) 100 mg capsule 100 unknown) mg PO BID PRN constipation #60 02/07/22 (unknown) (no (unknown) (unknown) encouraged him to (units (unknown) date) return to the unknown) emergency department if his chest pain should (unknown) (no (unknown) (unknown) enhancement, (units (u nknown) date) unknown) (unknown) (no (unknown) (unknown) fentanyl AdvReac (units (unknown) date) Severe Confusion unknown) Verified 05/03/22 11:58 (unknown) (no (unknown) (unknown) ferrous sulfate (units (unknown) date) 325 mg (65 mg 325 unknown) mg PO DAILY 10/19/19 02/03/22 (unknown) (no (unknown) (unknown) ferrous sulfate (units (unknown) date) 325 mg (65 mg unknown) iron) tablet,delayed release (DR/EC) (unknown) (no (unknown) (unknown) few months (units (unk nown) date) however last 3 unknown) days is becoming more constant. It starts in the left (unknown) (no (unknown) (unknown) fluticasone (units (un known) date) propionate 16 GM unknown) spray,suspension (unknown) (no (unknown) (unknown) fluticasone (units (un known) date) propionate 50 1 unknown) spray intranasal DAILY PRN 11/02/17 02/03/22 (unknown) (no (unknown) (unknown) following was (units ( unknown) date) unknown) (unknown) (no (unknown) (unknown) fractures.? (units (un known) date) unknown) (unknown) (no (unknown) (unknown) from the (units (unkno wn) date) unknown) (unknown) (no (unknown) (unknown) furosemide 40 mg (units (unknown) date) tablet 40 mg PO unknown) DAILY 02/03/22 02/03/22 (unknown) (no (unknown) (unknown) furosemide 40 mg (units (unknown) date) tablet unknown) (unknown) (no (unknown) (unknown) glipizide 2.5 mg (units (unknown) date) tablet, extended unknown) 2.5 mg PO DAILY 10/08/21 02/03/22 (unknown) (no (unknown) (unknown) glipizide (units (unkn own) date) [Glucotrol XL] 2.5 unknown) mg tablet extended release 24 hr (unknown) (no (unknown) (unknown) guarding or (units (un known) date) rebound. unknown) (unknown) (no (unknown) (unknown) hematoma, or (units (u nknown) date) unknown) (unknown) (no (unknown) (unknown) hilar (units (unkno wn) date) unknown) (unknown) (no (unknown) (unknown) hip (units (unkno wn) date) arthroplasties are unknown) grossly intact. (unknown) (no (unknown) (unknown) his chest pain is (units (unknown) date) related it I blood unknown) pressure. However it has been persistent (unknown) (no (unknown) (unknown) household (units (unkn own) date) members: spouse unknown) (unknown) (no (unknown) (unknown) hydromorphone (units ( unknown) date) [From Dilaudid] unknown) Allergy Severe Hallucinating, Verified 05/03/22 (unknown) (no (unknown) (unknown) hyoscyamine (units (un known) date) [HYOSCYAMINE] unknown) AdvReac Mild LEG Verified 05/03/22 11:58 (unknown) (no (unknown) (unknown) in size (units (unkno wn) date) unknown) (unknown) (no (unknown) (unknown) inhaler and that (units (unknown) date) helps. He is unknown) followed by cardiology up at [facility]. He (unknown) (no (unknown) (unknown) intact (units (unkno wn) date) unknown) (unknown) (no (unknown) (unknown) iron) (units (unkno wn) date) tablet,delayed unknown) release (unknown) (no (unknown) (unknown) is normal in (units (u nknown) date) caliber.? No unknown) hiatal hernias.? (unknown) (no (unknown) (unknown) is not (units (unkno wn) date) reproducible to unknown) palpation (unknown) (no (unknown) (unknown) is (units (unkno wn) date) unknown) (unknown) (no (unknown) (unknown) latex [LATEX] (units ( unknown) date) Allergy Mild RASH unknown) Verified 05/03/22 11:58 (unknown) (no (unknown) (unknown) levalbuterol (units (u nknown) date) tartrate 45 1 puff unknown) inhalation Q4-6H PRN 06/22/18 (unknown) (no (unknown) (unknown) levalbuterol (units (u nknown) date) tartrate [Xopenex unknown) HFA] 45 mcg/actuation HFA aerosol inhaler (unknown) (no (unknown) (unknown) lisinopril 10 mg (units (unknown) date) tablet 10 mg PO unknown) DAILY 12/08/21 02/03/22 (unknown) (no (unknown) (unknown) lisinopril 10 mg (units (unknown) date) tablet unknown) (unknown) (no (unknown) (unknown) lung apices to (units (unknown) date) the iliac crests.? unknown) Maximum intensity projection (MIP) oblique (unknown) (no (unknown) (unknown) mcg/actuation (units ( unknown) date) aerosol inhaler unknown) shortness of breath or wheezing (unknown) (no (unknown) (unknown) mcg/actuation (units ( unknown) date) nasal Allergy unknown) Symptoms ##0 (unknown) (no (unknown) (unknown) meclizine 25 mg (units (unknown) date) tablet 25 mg PO unknown) QID PRN vertigo #30 tabs 10/09/21 (unknown) (no (unknown) (unknown) meclizine 25 mg (units (unknown) date) tablet unknown) (unknown) (no (unknown) (unknown) membranes (units (unkn own) date) unknown) (unknown) (no (unknown) (unknown) metoprolol (units (unk nown) date) succinate 100 mg unknown) 100 mg PO DAILY 02/03/22 02/03/22 (unknown) (no (unknown) (unknown) metoprolol (units (unk nown) date) succinate 100 mg unknown) Tablet Extended Release 24 Hr (unknown) (no (unknown) (unknown) mind' (units (unkno wn) date) unknown) (unknown) (no (unknown) (unknown) montelukast 10 mg (units (unknown) date) Tablet unknown) (unknown) (no (unknown) (unknown) montelukast 10 mg (units (unknown) date) tablet 10 mg PO unknown) DAILY 02/03/22 02/03/22 (unknown) (no (unknown) (unknown) morphine Allergy (units (unknown) date) Severe unknown) Hallucinating, Verified 05/03/22 11:58 (unknown) (no (unknown) (unknown) multivitamin (units (u nknown) date) (Multiple Vitamins unknown) 1 tab PO DAILY ##0 12/20/16 02/03/22 (unknown) (no (unknown) (unknown) multivitamin (units (u nknown) date) [Multiple unknown) Vitamins] 1 EACH tablet (unknown) (no (unknown) (unknown) not clonidine (units ( unknown) date) twice a day he unknown) does take metoprolol and lisinopril (unknown) (no (unknown) (unknown) out of his (units (unk nown) date) unknown) (unknown) (no (unknown) (unknown) oxycodone 5 mg (units (unknown) date) tablet 5 mg PO Q4H unknown) PRN pain, moderate #60 02/07/22 (unknown) (no (unknown) (unknown) oxycodone 5 mg (units (unknown) date) tablet unknown) (unknown) (no (unknown) (unknown) pain (units (unkno wn) date) unknown) (unknown) (no (unknown) (unknown) pain. (units (unkno wn) date) unknown) (unknown) (no (unknown) (unknown) pneumothorax.? (units (unknown) date) unknown) (unknown) (no (unknown) (unknown) presents today (units (unknown) date) with sharp unknown) stabbing chest pain. He says it also off and on for a (unknown) (no (unknown) (unknown) pressure at home (units (unknown) date) regularly it is unknown) normally in the 150s. He does not believe that (unknown) (no (unknown) (unknown) previously had a (units (unknown) date) stress test 3 unknown) years ago.He was seen and evaluated last week at (unknown) (no (unknown) (unknown) release 24 hr (units ( unknown) date) (Glucotrol XL) unknown) (unknown) (no (unknown) (unknown) renal (units (unkno wn) date) unknown) (unknown) (no (unknown) (unknown) sagittal and (units (u nknown) date) unknown) (unknown) (no (unknown) (unknown) side of his chest (units (unknown) date) to go straight unknown) through to his back. He denies nausea or (unknown) (no (unknown) (unknown) spray,suspension (units (unknown) date) unknown) (unknown) (no (unknown) (unknown) stranding, (units (unk nown) date) intramural unknown) hematomas, or wall thickening. (unknown) (no (unknown) (unknown) strongly (units (unkno wn) date) recommend that he unknown) have a stress test and further workup. I also (unknown) (no (unknown) (unknown) substance use (units ( unknown) date) type: does not use unknown) (unknown) (no (unknown) (unknown) surgically absent (units (unknown) date) unknown) (unknown) (no (unknown) (unknown) tablet 4-6) (units (un known) date) unknown) (unknown) (no (unknown) (unknown) tablet) (units (unkno wn) date) unknown) (unknown) (no (unknown) (unknown) tablet,extended (units (unknown) date) release 24 hr unknown) (unknown) (no (unknown) (unknown) tabs (units (unkno wn) date) unknown) (unknown) (no (unknown) (unknown) take 1 tablet by (units (unknown) date) mouth once daily unknown) (unknown) (no (unknown) (unknown) talk with (units ( unknown) date) Rody, who states unknown) chest pain is likely secondary to uncontrolled (unknown) (no (unknown) (unknown) the administration (units (unknown) date) of intravenous unknown) contrast, 2.5 mm thick sections again acquired (unknown) (no (unknown) (unknown) the arch or (units (unk nown) date) descending unknown) thoracic aorta.? No aortic dissection.? No periaortic fat (unknown) (no (unknown) (unknown) the (units (unkno wn) date) unknown) (unknown) (no (unknown) (unknown) thickness.? There (units (unknown) date) are scattered unknown) sigmoid diverticula. No evidence for (unknown) (no (unknown) (unknown) trazodone 100 mg (units (unknown) date) tablet 400 tab PO unknown) BEDTIME 30 days #120 12/10/21 (unknown) (no (unknown) (unknown) trazodone 100 mg (units (unknown) date) tablet unknown) (unknown) (no (unknown) (unknown) unremarkable.? No (units (unknown) date) suspicious bony unknown) lesions.? No vertebral body compression (unknown) (no (unknown) (unknown) used:? automated (units (unknown) date) exposure control.? unknown) (unknown) (no (unknown) (unknown) varenicline (units (un known) date) [VARENICLINE] unknown) AdvReac Severe Paranoia Verified 05/03/22 11:58 (unknown) (no (unknown) (unknown) vomiting. (units (unkn own) date) Sometimes has unknown) shortness of breath but frequently needs his albuterol (unknown) (no (unknown) (unknown) without (units (unkno wn) date) hydronephrosis.? unknown) Social History No information. Vital Signs No information.
--- NOTE | 2022-05-26 13:58 | XRAY Report ---
PROCEDURE: Chest 2 View X-Ray INDICATIONS: Shortness of breath. TECHNIQUE: 2 view(s) of the chest. COMPARISON: Chest radiograph 04/27/2022 FINDINGS: Surgical changes and devices: Median sternotomy wires. Lower cervical fusion hardware. Lungs and pleura: No pleural effusions or pneumothorax. Lungs are clear. Mediastinum: Mediastinal contours are normal. Heart size is normal. Bones and chest wall: No suspicious bony abnormalities. Soft tissues appear unremarkable. IMPRESSION: No acute cardiopulmonary abnormality. Reviewed by: Emeka Romero MD on 05/26/2022 1:56 PM PDT Approved by: Emeka Romero MD on 05/26/2022 1:56 PM PDT Station ID: [id number]
[2022-05-26] MEDS ORDERED: IPRATROPIUM 0.2 MG/ML NEB INH STA (14:13)
[2022-05-26] MEDS ORDERED: LEVALBUTEROL 1.25 MG/3 ML NEB INH STA (14:13)
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
[2022-05-26] MEDS ORDERED: predniSONE 20 MG TABLET PO STA (14:44)
[2022-05-26] MEDS ORDERED: ALBUTEROL NEB 2.5 MG/3 ML INH STA (15:04)
[2022-05-26 15:20] VITALS: BP 135/98
== END 2022-05-26 15:38 | disposition home or self-care (01) ==
LOC: ED 12:47
DX: J44.1 Chronic obstructive pulmonary disease with (acute) exacerbation (principal); Z87.891 Personal history of nicotine dependence
CPT/HCPCS: 71046; 94640; 99284; A9270; J7512; 87637

== ENCOUNTER 2022-09-13 11:34 | Emergency (ER) | payer MEDICARE ==
--- OUTSIDE RECORDS SUMMARY | 2022-09-13 12:00 | EXTERNAL MEDICAL SUMMARY RPT | Continuity of Care Document ---
:1945 Author Organization [facility] Address [address] [phone] Phone Allergies No information. Encounters No information. Functional Status No information. Immunizations No information. Medications No information. Problems No information. Procedures No information. Results/Labs test date author facility value unit interpret ation Result panel 1 (unknown) (no date) (unknown) (unknown) (no value) (units (un known) unknown) (unknown) (no date) (unknown) (unknown) [id number] (units (unk nown) unknown) (unknown) (no date) (unknown) (unknown) Age/Sex: 76 / (units (unknown) M unknown) (unknown) (no date) (unknown) (unknown) Anesthesia (units (un known) Note unknown) (unknown) (no date) (unknown) (unknown) : (units (unkn own) 1945 unknown) Acct:[id number] (unknown) (no date) (unknown) (unknown) Date of (units (unkn own) Service: unknown) 02/03/22 (unknown) (no date) (unknown) (unknown) [place] (units (unkn own) [place] [id number] unknown) [address] [place] [id number] (unknown) (no date) (unknown) (unknown) Patient: (units (unkn own) Radha Peraza unknown) D MR#: [id number] (unknown) (no date) (unknown) (unknown) Provider: (units (unk nown) Carlos Montemayor MD unknown) (unknown) (no date) (unknown) (unknown) Signed By: (units (un known) unknown) Social History No information. Vital Signs No information.
[2022-09-13] MEDS ORDERED: IPRATROPIUM/ALBUTEROL 3 ML NEB INH STA (13:15)
[2022-09-13] MEDS ORDERED: predniSONE 20 MG TABLET PO STA (13:15)
--- NOTE | 2022-09-13 13:15 | XRAY Report ---
PROCEDURE: Chest 2 View X-Ray INDICATIONS: cough with phlem. TECHNIQUE: 2 views of the chest were acquired. COMPARISON: 05/26/2022 FINDINGS: Surgical changes and devices: Remote CABG. Cervical fusion hardware. Lungs and pleura: No pleural effusions or pneumothorax. Lungs are clear. Mediastinum: Mediastinal contours are normal. Heart size is normal. Bones and chest wall: No suspicious bony abnormalities. Soft tissues appear unremarkable. IMPRESSION: No evidence of acute pulmonary process. Reviewed by: Tl Jaimes MD on 09/13/2022 1:13 PM PST Approved by: Tl Jaimes MD on 09/13/2022 1:13 PM PST Station ID: [id number]
--- NOTE | 2022-09-13 13:17 | ED Physician Documentation ---
History of Present Illness - Stated complaint Stated Complaint: SOA - Chief complaint Chief Complaint: Resp - Additonal information Additional information: History obtained from patient. Reliable historian. 77-year-old male who has a history of known oxygen dependent COPD presents to the emergency department for evaluation of worsening productive cough and wheeze over the last week. He does report that he had COVID-19 in July and never feels like he fully recovered. He has had no fevers. Denies chest pain. But over the last 24 hours he has used his Xopenex nebulizer 5 times without resolution of symptoms. His cough is productive, typically green phlegm. He reports compliance with all his usual breathing medications. Not currently smoking tobacco Review of Systems Constitutional: denies: Fever, Chills Cardiac: denies: Chest pain / pressure Respiratory: reports: Dyspnea, Cough GI: reports: Reviewed and negative : reports: Reviewed and negative PD PAST MEDICAL HISTORY - Past Medical History Past Medical History: Yes Cardiovascular: Hypertension, Coronary artery disease, [place], Atrial fibrillation, Murmur, Other Respiratory: Asthma, COPD Neuro: None, Headaches Endocrine/Autoimmune: None GI: GERD, Hiatal hernia, Diverticulitis : Benign prostate hypertrophy, Nocturia HEENT: Chronic sinusitis, Chronic hearing loss Psych: Depression, Anxiety, Claustrophobia Musculoskeletal: Osteoarthritis, Chronic back pain, Other Derm: Herpes zoster, Other - Past Surgical History Past Surgical History: Yes General: Cholecystectomy, EGD Ortho: Hip replacement, Knee replacement, Arthroscopic surgery, Other Cardiovascular: CABG, Other HEENT: Other - Present Medications Home Medications: Ambulatory Orders Medication Instructions Recorded Confirmed Lorazepam [Ativan] 1 mg PO TID PRN 01/03/17 04/27/22 Levalbuterol Tartrate [Xopenex Hfa] 2 puffs INH Q4H PRN 06/21/17 09/13/22 traZODone [Desyrel] 400 mg PO QPM 06/21/17 09/13/22 Metoprolol Tartrate 50 mg PO DAILY 08/01/17 04/27/22 Acetaminophen/Cod 300/30 [Tylenol 1 each PO Q6H PRN #20 tablet 09/28/19 09/13/22 #3] Furosemide 20 mg PO DAILY PRN 07/13/20 04/27/22 Omeprazole 20 mg PO DAILY 07/13/20 09/13/22 glipiZIDE [Glipizide ER] 2.5 mg PO DAILY 04/27/22 04/27/22 Albuterol 2.5 mg INH Q4H PRN #30 ml 05/26/22 Albuterol Sulf [Ventolin Hfa 1 - 2 puffs INH Q4HR PRN #1 each 09/13/22 Inhaler] Albuterol Sulfate 1.25 mg IH BID PRN #90 ea 09/13/22 Azithromycin [Zithromax] 250 mg PO UD 5 Days #6 tablet 09/13/22 Isosorbide Mononitrate 10 mg PO DAILY 09/13/22 09/13/22 cloNIDine [Catapres] 1 - 2 tab PO Q8HR PRN 09/13/22 09/13/22 predniSONE [Deltasone] 40 mg PO DAILY 5 Days #10 tablet 09/13/22 - Allergies Allergies/Adverse Reactions: Allergies Allergy/AdvReac Type Severity Reaction Status Date / Time pantoprazole sodium * Allergy Intermediate Nausea Verified 09/13/22 11:45 [From Protonix] Goxcsjs-QVR-TkM Reductase Allergy Intermediate Unknown Verified 06/11/22 10:05 Inhibitor [Zrubxwc-Xpn-Ysi Reductase Inhibitor] Sulfa (Sulfonamide Allergy Intermediate Rash Verified 09/13/22 11:45 Antibiotics) latex Allergy Mild Itching Verified 06/11/22 10:05 albuterol AdvReac Severe heart Verified 09/13/22 11:45 palpatation diazepam [From Valium] AdvReac Severe DELIRIUM Verified 09/13/22 11:45 hydrocodone [From [place]] AdvReac Anxiety Verified 09/13/22 11:45 morphine AdvReac Anxiety Verified 09/13/22 11:45 - Social History Does the pt smoke?: No Smoking Status: Former smoker Does the pt drink ETOH?: Yes Does the pt have substance abuse?: No - Immunizations Immunizations are current?: Yes - POLST Patient has POLST: No POLST Status: Full Code PD ED PE NORMAL - General General: Alert and oriented X 3, No acute distress - HEENT HEENT: Atraumatic, Ears normal - Neck Neck: Supple, no meningeal sign, No adenopathy - Cardiac Cardiac: RRR, No murmur - Respiratory Respiratory: No respiratory distress. No: Clear bilaterally (.Diffuse rhonchi as well as expiratory wheeze. Room air saturations 98%. Appears unlabored. Speaking in full sentences) Results - Vitals Vitals: Vital Signs - 24 hr 09/13/22 09/13/22 09/13/22 11:40 13:19 13:36 Temperature 36.8 C Heart Rate 73 72 77 Respiratory 24 20 20 Rate Blood Pressure 127/79 92/63 O2 Saturation 96 96 Oxygen O2 Source [With Activity] Room air O2 Source Room air - Rads (name of study) cxr Radiology: Final report received (No acute cardiopulmonary process) PD Medical Decision Making - ED course Complexity details: reviewed results, re-evaluated patient, considered differential, d/w patient ED course: This is a well-appearing 77-year-old male that presents emergency department for evaluation of 1 week worsening productive cough and dyspnea. He does have a history of nonoxygen dependent COPD. States he had COVID in early July and does not feel like he fully resolved. Despite using Xopenex nebulizers 5 times in the last 24 hours no relief with wheeze. Has had no fevers. On exam he does not appear labored. His room air saturations are 98%. Was cardiopulmonary Auscultation refused diffuse rhonchi as well as expiratory wheeze. My interpretation of his chest x-ray as well as that of the radiologist is that there is no acute cardiopulmonary findings. As such I suspect that this gentleman has a COPD exacerbation given productive cough and history of COPD. He was administered a DuoNeb nebulizer here in the emergency department with near 100% resolution of cough and wheeze. He was also administered 60 mg of prednisone. On discharge she will be given an additional 5 days of prednisone, azithromycin as well as a refill of albuterol nebulizer and inhaler which she has found useful in the past. He is avoidant of excessive albuterol given concerns for tachycardia however. There is no medical need to admit him for hospitalization given lack of hypoxia and improved symptoms with the DuoNeb Clinically he has no chest pain therefore I have lower suspicion for ACS. He does not appear volume overloaded on chest x-ray or clinical exam therefore I have low suspicion for acute congestive heart failure. He is discharged home in stable condition. Emergent return precautions discussed Departure - Departure Disposition: 01 Home, Self Care Clinical Impression: COPD with acute exacerbation Condition: Stable Instructions: COPD Dc Prescriptions: Albuterol Sulf [Ventolin Hfa Inhaler] 1 - 2 puffs INH Q4HR PRN #1 each PRN Reason: Shortness Of Air/Wheezing predniSONE [Deltasone] 40 mg PO DAILY 5 Days #10 tablet Azithromycin [Zithromax] 250 mg PO UD 5 Days #6 tablet Comments: Dominic chávez came to the emergency department because for the last week you have had worsening productive cough. When he presented to the emergency department your oxygen levels were normal but you did sound very wheezy. We did give you a nebulizer here in the emergency department which included Atrovent and albuterol and on reexam you are feeling better. We will treat this as a COPD exacerbation. A prescription for an additional 5 days of prednisone as well as 5 days of azithromycin and antibiotic has been sent to the [facility] in [place]. I have sent a refill for your albuterol spacer/puffer to the [facility] as well as 90 albuterol nebulizing solutions. Importantly follow closely with your primary care doctor for longer-term refills of your chronic medications. Return to the ER if you find that you are having worsening symptoms despite this treatment at home
[2022-09-13 13:23] VITALS: BP 92/63
== END 2022-09-13 14:01 | disposition home or self-care (01) ==
LOC: ED 11:34
DX: J44.1 Chronic obstructive pulmonary disease with (acute) exacerbation (principal); I10 Essential (primary) hypertension; I25.10 Atherosclerotic heart disease of native coronary artery without angina pectoris; I48.91 Unspecified atrial fibrillation; N40.0 Benign prostatic hyperplasia without lower urinary tract symptoms
CPT/HCPCS: 71046; 94640; 94664; 99283; 99284; J7512

== ENCOUNTER 2022-09-16 06:13 | Day surgery (SDC) | payer MEDICARE ==
[~2022-09-16 06:13] MED LIST: CYCLOPENTOLATE 1% OPHTH DROPS 2 ML ONE; KETOROLAC 0.45% OPHTH DROPS ONE; PHENYLEPHRINE 2.5% OPHTH 2 ML DROPS ONE; PROPARACAINE 0.5% OPHTH DROPS 15 ML ONE
[2022-09-16] MEDS ORDERED: LACTATED RINGERS 1,000 ML IV ONE ×2 (06:40→07:57)
--- NOTE | 2022-09-16 06:53 | ANESTHESIA ---
Pre-Anesthesia VS, & Labs - Diagnosis R nuclear cataract - Procedure R cataract extraction with IOL Vital Signs: Temp Pulse Resp BP Pulse Ox O2 Flow Rate 36.8 C 94 20 154/88 H 95 09/16/22 06:25 09/16/22 06:25 09/16/22 06:25 09/16/22 06:25 09/16/22 06:25 Height: 6 ft 1 in Weight (kg): 100 kg Body Mass Index: 29.0 BMI Classification: Overweight - NPO >8 hours - Lab Results Current Lab Results: Laboratory Tests 09/16/22 06:46: POC Whole Bld Glucose 147 H Lab results reviewed: Yes Home Medications and Allergies Levalbuterol Tartrate [Xopenex Hfa] 2 puffs INH Q4H PRN 06/21/17 traZODone [Desyrel] 400 mg PO QPM 06/21/17 Metoprolol Tartrate 50 mg PO DAILY 08/01/17 Furosemide 20 mg PO DAILY PRN 07/13/20 Omeprazole 20 mg PO DAILY 07/13/20 glipiZIDE [Glipizide ER] 2.5 mg PO DAILY 04/27/22 Isosorbide Mononitrate 10 mg PO DAILY 09/13/22 Allergies/Adverse Reactions: Allergies Allergy/AdvReac Type Severity Reaction Status Date / Time pantoprazole sodium * Allergy Intermediate Nausea Verified 09/13/22 11:45 [From Protonix] Iiqqvmv-QTN-NtI Reductase Allergy Intermediate Unknown Verified 06/11/22 10:05 Inhibitor [Ukxxkgj-Fwq-Gvq Reductase Inhibitor] Sulfa (Sulfonamide Allergy Intermediate Rash Verified 09/13/22 11:45 Antibiotics) latex Allergy Mild Itching Verified 06/11/22 10:05 albuterol AdvReac Severe heart Verified 09/13/22 11:45 palpatation diazepam [From Valium] AdvReac Severe DELIRIUM Verified 09/13/22 11:45 hydrocodone [From [place]] AdvReac Anxiety Verified 09/13/22 11:45 morphine AdvReac Anxiety Verified 09/13/22 11:45 Anes History & Medical History - Anesthetic History Anesthesia Complications: reports: No previous complications Family history of Anesthesia Complications: Denies Family history of Malignant Hyperthermia: Denies - Medical History Cardiovascular: reports: Hypertension, Coronary artery disease, [place], Atrial fibrillation, Murmur, Other Pulmonary: reports: Asthma, COPD Gastrointestinal: reports: GERD, Hiatal hernia, Diverticulitis Urinary: reports: Benign prostate hypertrophy, Nocturia Neuro: reports: None, Headaches Musculoskeletal: reports: Osteoarthritis, Chronic back pain, Other Endocrine/Autoimmune: reports: None Blood Disorders: reports: None Skin: reports: Herpes zoster, Other Smoking Status: Former smoker Psychosocial: reports: Opioid - Surgical History General: reports: Cholecystectomy, EGD Eyes Ears Nose Throat (EENT): reports: Cataracts, Other Cardiothoracic: reports: CABG, Other Orthopedic: reports: Hip replacement, Knee replacement, Arthroscopic surgery, Other Exam General: Alert, Oriented x3, Cooperative Mouth Openin Fingerbreadth Neck Mobility: Normal Mallampati classification: II Thyromental Distance: 4-6 cm Respiratory: Lungs clear, Normal breath sounds, No respiratory distress Neurological: Normal speech Mental/Cognitive Status: Alert/Oriented X3, Normal for patient Cognitive Status: Within normal limits Plan Anesthesia Type: MAC Consent for Procedure(s) Verified and Reviewed: Yes Code Status: Attempt Resuscitation ASA classification: 3-Severe systemic disease Is this case an emergency?: No
[2022-09-16] MEDS ORDERED: MIDAZOLAM 2 MG/2 ML VIAL ONE (07:03)
[2022-09-16] MEDS ORDERED: fentaNYL 100 MCG/2 ML VIAL ONE (07:04)
[2022-09-16] MEDS ORDERED: TRIAMCIN/MOXIFLOX OPHTHALMIC 0.6 ML VIAL IO ONE ×2 (07:05→07:40)
[2022-09-16] MEDS ORDERED: TIMOLOL 0.5% OPHTH DROPS ONE (07:05)
[2022-09-16] MEDS ORDERED: EPINEPHrine 1 MG/ML AMP ONE (07:05)
[2022-09-16] MEDS ORDERED: BRIMONIDINE 0.2% OPHTH DROPS 5 ML ONE (07:05)
[2022-09-16] MEDS ORDERED: BSS/LIDOCAINE/EPINEPHRINE 1 ML SYRINGE ONE (07:06)
[2022-09-16] MEDS ORDERED: VANCOMYCIN OPHTH (TOPICAL) 10 MG/ML SYRINGE ONE (07:06)
[2022-09-16] MEDS ORDERED: ONDANSETRON 4 MG/2 ML VIAL ONE (07:12)
[2022-09-16] MEDS ORDERED: BRIMONIDINE 0.2% OPHTH DROPS 5 ML OPTH ONE (07:39)
[2022-09-16] MEDS ORDERED: EPINEPHrine 1 MG/ML AMP IR ONE (07:39)
[2022-09-16] MEDS ORDERED: TIMOLOL 0.5% OPHTH DROPS OPTH ONE (07:39)
[2022-09-16] MEDS ORDERED: PROPARACAINE 0.5% OPHTH DROPS 15 ML RIGHTEYE ONE (07:40)
[2022-09-16] MEDS ORDERED: VANCOMYCIN OPHTH (TOPICAL) 10 MG/ML SYRINGE TOP ONE (07:40)
[2022-09-16] MEDS ORDERED: BSS/LIDOCAINE/EPINEPHRINE 1 ML SYRINGE IO ONE (07:40)
--- NOTE | 2022-09-16 08:05 | OPERATIVE REPORT ---
Operative Report - Other Other Information/Narrative: Date of Surgery: 09/16/22 Preop Dx: Complex, visually significant cataract right eye. Complex due to small pupil requiring mechanical dilation using a Malyugin ring. Cataract surgery was performed in the left eye on . Postop Dx: Same Procedure: Phacoemulsification with posterior chamber intraocular lens implant right eye Surgeon: Dr. Deep Duenas Anesthesia: Monitored anesthesia care Complications: None Operative Indications: This is a 77-year-old M with progressive vision loss in the right eye due to 2-3+ nuclear sclerotic cataract. Best corrected visual acuity was 20/30 with glare to 20/200 vision in the right eye. Indications for surgery were: - Difficulty reading - Difficulty seeing words, closed captions, or game scores on TV - Difficulty seeing street signs - Difficulty driving in low light or at night The patient was consented at length concerning the risks and benefits of cataract surgery after which the patient expressed a desire to proceed with surgery. Operative Procedure: The patient was taken into OR#3 and placed under monitored anesthesia care. A surgical time-out was conducted confirming correct patient, correct procedure, and correct surgical site. The patient was given topical anesthesia and then prepped and draped in the usual sterile fashion. The eye was entered at the 6 and 3 oclock positions. Intracameral Shugarcaine was injected into the anterior chamber followed by a dispersive viscoelastic. A Malyugin ring was injected into the anterior chamber and engaged with the pupillary margin at four points to expand the pupil. A continuous-tear curvilinear capsulorhexis was performed. The nucleus was hydrodissected and phacoemulsified. The cortex was evacuated using automated infusion and aspiration. A cohesive viscoelastic was injected into the capsular bag and a 12.0 diopter intraocular lens was inserted into the bag. The Malyugin ring was disengaged from the pupillary margin and removed from the anterior chamber. Infusion and aspiration were used to evacuate the viscoelastic materials from the eye. The wounds were hydrated and the eye inflated to physiologic pressure using balanced salt solution. Approximately 0.25ml of a mixture of triamcinolone and moxifloxacin was injected trans-sclerally into the vitreous in the inferotemporal quadrant using a 30 gauge cannula. An additional 0.25ml of a mixture of triamcinolone and moxifloxacin was injected subconjunctivally in the superior quadrant for infection and inflammation prophylaxis. Wound integrity was checked with Weck-Suellen sponges. The patient was taken from the operating room in good condition and given post-op instructions.
--- NOTE | 2022-09-16 08:10 | ANESTHESIA POST OP EVALUATION ---
Anesthesia Post Eval - Post Anesthesia Eval Vitals: Last Vital Signs Temp 36.2 C L 09/16/22 07:58 Pulse 88 09/16/22 07:58 Resp 14 09/16/22 07:58 BP 131/102 H 09/16/22 07:58 Pulse Ox 96 09/16/22 07:58 O2 Flow Rate CV Function Including HR & BP: Stable Pain Control: Satisfactory Nausea & Vomiting: Negative Mental Status: Baseline Respiratory Status: Airway Patent Hydration Status: Satisfactory Anesthesia Complications: None
[2022-09-16 08:29] VITALS: BP 175/77
== END 2022-09-16 06:14 | disposition home or self-care (01) ==
LOC: SDS 06:13
PROVIDERS: ATTEND Ophthalmology
DX: E11.36 Type 2 diabetes mellitus with diabetic cataract (principal); H25.11 Age-related nuclear cataract, right eye; Z98.42 Cataract extraction status, left eye; I25.2 Old myocardial infarction; I25.10 Atherosclerotic heart disease of native coronary artery without angina pectoris; I48.91 Unspecified atrial fibrillation; Z87.891 Personal history of nicotine dependence; Z79.84 Long term (current) use of oral hypoglycemic drugs; J45.909 Unspecified asthma, uncomplicated
CPT/HCPCS: 66982; A9270; J3490; J7120; V2787

== ENCOUNTER 2022-09-30 10:57 | Outpatient (CLI) | payer MEDICARE ==
--- NOTE | 2022-09-30 17:17 | XRAY Report ---
PROCEDURE: Lumbar Spine 2 View INDICATIONS: BACK PAIN TECHNIQUE: 3 views of the lumbar spine were acquired. COMPARISON: CT of abdomen and pelvis dated 06/11/2022. FINDINGS: Bones: 5 bmh-wyr-rvdeelm vertebrae are present. Patient is status post posterior fusion and interver tebral spacer placement at L2-3 through L5-S1 levels. There is 6 mm anterolisthesis of L1 on L2. No vertebral body compression fractures. No gross hardware loosening or failure. Degenerative endplate c hanges are seen at L1-2 level. No suspicious bony lesions. Soft tissues: Overlying bowel gas pattern is normal. No suspicious soft tissue calcifications. IMPRESSION: Prior posterior fusion at L2-S1 level. No evidence of hardware loosening or failure. No acute vertebral body compression fracture. Grade 1 anterolisthesis of L1 on L2 with moderate degenera tive disc disease at L1-2 level as above. Reviewed by: Satish Jarrett MD on 09/30/2022 5:16 PM PST Approved by: Satish Jarrett MD on 09/30/2022 5:16 PM PST Station ID: [id number]
== END 2022-09-30 10:58 | disposition home or self-care (01) ==
LOC: DI 10:57
PROVIDERS: ATTEND Internal Medicine
DX: M51.36 Other intervertebral disc degeneration, lumbar region (principal); M43.16 Spondylolisthesis, lumbar region; Z98.1 Arthrodesis status

== ENCOUNTER 2022-11-20 12:08 | Emergency (ER) | payer MEDICARE ==
[2022-11-20] MEDS ORDERED: DEXAMETHASONE 10 MG/ML VIAL PO STA (13:05)
[2022-11-20] MEDS ORDERED: ONDANSETRON ODT 4 MG TABLET TL STA (13:05)
[2022-11-20] MEDS ORDERED: CHERRY SYRUP 10 ML UDC PO ONE (13:05)
[2022-11-20] MEDS ORDERED: HYDROmorphone 1 MG/ML CARPUJECT IM STA ×2 (13:05→14:24)
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
--- NOTE | 2022-11-20 14:06 | CT Report ---
PROCEDURE: LUMBAR SPINE WO INDICATIONS: fall down stairs pain, hardware protruding TECHNIQUE: Noncontrast 3 mm thick sections acquired from the T12 level to the sacrum. Sagittal and coronal refo rmats were constructed. For radiation dose reduction, the following was used: automated exposure co ntrol, adjustment of mA and/or kV according to patient size. COMPARISON: 09/30/[address] of abdomen and pelvis dated 06/11/2022. FINDINGS: Image quality: Excellent. Bones: Patient is status post transpedicular fusion at L2-S1 levels with intervertebral spacer placem ent. There is straightening of normal lumbar lordosis. No acute vertebral body compression fracture. No gross hardware loosening or failure. T12-L1: Within normal limits. L1-L2: Vacuum disc phenomenon is seen. Broad-based disc bulge and bilateral facet arthrosis is see n causing moderate central canal stenosis and bilateral neural foraminal narrowing. L2-L3: Postsurgical changes from left laminectomy. Bilateral facet arthrosis is seen. No significa nt central canal stenosis. Moderate bilateral neural foraminal narrowing is. L3-L4: Post surgical changes from left laminectomy. Bilateral facet arthrosis and broad-based disc bulge is seen with mild central canal stenosis and bilateral neural foraminal narrowing. L4-L5: There is right laminectomy. Broad-based disc bulge and bilateral facet arthrosis is seen. No significant canal stenosis. Moderate bilateral neural foraminal narrowing is seen. L5-S1: There is right laminectomy. Broad-based disc bulge and bilateral facet arthrosis is seen. No significant central canal stenosis. Moderate bilateral neural foraminal narrowing is seen. Soft tissues: No retroperitoneal masses or hematomas. Visualized aorta is normal in caliber. IMPRESSION: 1. No acute lumbar spine fracture or dislocation. 2. Prior fusion of lumbar spine from L2 through S1 levels with post surgical changes. No evidence of hardware loosening or failure. 3. Degenerative endplate changes and bilateral facet arthrosis throughout lumbar spine causing variou s degrees of central canal stenosis and bilateral neural foraminal narrowing as described in detail marco antonio junior. 4. No gross paraspinous soft tissue allergies. Reviewed by: Satish Jarrett MD on 11/20/2022 2:05 PM PDT Approved by: Satish Jarrett MD on 11/20/2022 2:05 PM PDT Station ID: [id number]
[2022-11-20 14:38] VITALS: BP 175/88
== END 2022-11-20 14:47 | disposition home or self-care (01) ==
LOC: ED 12:08
DX: S39.012A Strain of muscle, fascia and tendon of lower back, initial encounter (principal); W10.9XXA Fall (on) (from) unspecified stairs and steps, initial encounter; Y93.E2 Activity, laundry; Y92.009 Unspecified place in unspecified non-institutional (private) residence as the place of occurrence of the external cause; Z87.891 Personal history of nicotine dependence
CPT/HCPCS: 72131; 96372; 99283; 99284; A9270; J1170; Q0162

== ENCOUNTER 2022-12-03 18:56 | Emergency (ER) | payer MEDICARE ==
--- NOTE | 2022-12-03 19:14 | ED Physician Documentation ---
PD HPI DYSPNEA - Stated complaint Stated Complaint: SOA - Chief complaint Chief Complaint: Resp - Additional information Additional information: HPI from patient with some contribution from patient's who is at bedside. Patient complains of shortness of breath, wheezing, with productive cough. The cough is productive of green-colored sputum. Patient tells me the symptoms have been going on for "months". When asked why he comes in tonight for this, he says the symptoms have been steadily worsening, particularly the cough. Patient says he completed a course of Zithromax approximately 3 or 4 weeks ago without improvement. Patient's says that she just picked up prescriptions earlier today that were called into pharmacy by patient's primary care provider (patient did not see his provider but apparently these prescriptions were called in after a discussion over the phone regarding his symptoms). The prescriptions were for prednisone and Augmentin; patient has already taken the first dose of both these medications, with the prednisone being a 20 mg dose. Review of Systems Constitutional: denies: Fever, Chills, Sweats Cardiac: denies: Chest pain / pressure, Pedal edema Respiratory: reports: Dyspnea, Cough, Wheezing. denies: Hemoptysis Musculoskeletal: reports: Back pain (chronic) PD PAST MEDICAL HISTORY - Past Medical History Cardiovascular: Hypertension, Coronary artery disease, [place], Atrial fibrillation, Murmur, Other Respiratory: Asthma, COPD Neuro: None, Headaches Endocrine/Autoimmune: None GI: GERD, Hiatal hernia, Diverticulitis : Benign prostate hypertrophy, Nocturia HEENT: Chronic sinusitis, Chronic hearing loss Psych: Depression, Anxiety, Claustrophobia Musculoskeletal: Osteoarthritis, Chronic back pain, Other Derm: Herpes zoster, Other - Past Surgical History Past Surgical History: Yes General: Cholecystectomy, EGD Ortho: Hip replacement, Knee replacement, Arthroscopic surgery, Other Cardiovascular: CABG, Other HEENT: Other - Present Medications Home Medications: Ambulatory Orders Medication Instructions Recorded Confirmed Levalbuterol Tartrate [Xopenex Hfa] 2 puffs INH Q4H PRN 06/21/17 09/15/22 traZODone [Desyrel] 400 mg PO QPM 06/21/17 09/15/22 Metoprolol Tartrate 50 mg PO DAILY 08/01/17 09/16/22 Acetaminophen/Cod 300/30 [Tylenol 1 each PO Q6H PRN #20 tablet 09/28/19 09/15/22 #3] Furosemide 20 mg PO DAILY PRN 07/13/20 09/16/22 Omeprazole 20 mg PO DAILY 07/13/20 09/15/22 glipiZIDE [Glipizide ER] 2.5 mg PO DAILY 04/27/22 09/15/22 Azithromycin [Zithromax] 250 mg PO UD 5 Days #6 tablet 09/13/22 09/16/22 Isosorbide Mononitrate 10 mg PO DAILY 09/13/22 09/13/22 predniSONE [Deltasone] 40 mg PO DAILY 5 Days #10 tablet 09/13/22 09/15/22 Oxycodone HCl/Acetaminophen 1 - 2 each PO Q6H PRN #10 tablet 11/20/22 [Percocet 5-325 mg Tablet] Benzonatate [Tessalon] 200 mg PO TID PRN #20 cap 12/03/22 - Allergies Allergies/Adverse Reactions: Allergies Allergy/AdvReac Type Severity Reaction Status Date / Time pantoprazole sodium * Allergy Intermediate Nausea Verified 12/03/22 19:05 [From Protonix] Ffehuri-TTT-XhL Reductase Allergy Intermediate Unknown Verified 12/03/22 19:05 Inhibitor [Xmspxxg-Olm-Qca Reductase Inhibitor] Sulfa (Sulfonamide Allergy Intermediate Rash Verified 12/03/22 19:05 Antibiotics) latex Allergy Mild Itching Verified 12/03/22 19:05 albuterol AdvReac Severe heart Verified 12/03/22 19:05 palpatation diazepam [From Valium] AdvReac Severe DELIRIUM Verified 12/03/22 19:05 hydrocodone [From [place]] AdvReac Anxiety Verified 12/03/22 19:05 morphine AdvReac Anxiety Verified 12/03/22 19:05 - Social History Does the pt smoke?: No Smoking Status: Former smoker Does the pt drink ETOH?: Yes Does the pt have substance abuse?: No - Immunizations Immunizations are current?: Yes - POLST Patient has POLST: No POLST Status: Full Code PD ED PE NORMAL - Vitals Vital signs reviewed: Yes - General General: Alert and oriented X 3, No acute distress, Well developed/nourished, Other (hard of hearing. NAD including no respiratory distress; speaks in full sentences. sitting in WC (per patient preference due to back pain)) - HEENT HEENT: Moist mucous membranes - Neck Neck: Supple, no meningeal sign - Cardiac Cardiac: No murmur - Respiratory Respiratory: No respiratory distress PD ED PE EXPANDED - Cardiac Cardiac: Regular Rate, Irregularly irregular - Respiratory Respiratory: Wheezing (end-expiratory wheezing bilaterally. left lower lung field rhonchi, with trace right basilar rhonchi) Results - Vitals Vitals: Vital Signs - 24 hr 12/03/22 12/03/22 19:45 20:47 Heart Rate 70 76 Respiratory 20 18 Rate Blood Pressure 148/81 H O2 Saturation 100 Oxygen O2 Source [] Room air O2 Source Room air - Rads (name of study) chest xray Relevant Findings:: Prelim report reviewed (Radiologist interpretation is no acute disease), EMP independent interpretation of test (Faint, focal right lower lobe atelectasis versus early infiltrate), See rad report PD Medical Decision Making - ED course Complexity details: reviewed results, considered differential, d/w patient, d/w family ED course: Patient complains of shortness of breath and productive cough. He has just taken his first doses of prednisone and Augmentin earlier today and is not in any obvious acute distress including no respiratory distress. His pulse ox is 95-96% on room air. I explained that it is too early to expect either the steroid or the antibiotic to have any effect. Due to his adventitious lung sounds, he is given nebulized Xopenex and ipratropium. I also ordered 10 mg p.o. Decadron to augment the prednisone he has received earlier today. He is asking for something for the cough because it is exacerbating his chronic back pain and thus he is given 200mg tessalon in ED as well. After the breathing treatment and Tessalon Perles, I reevaluated the patient. He is again in no apparent distress. His pulse ox is 97 to 98% on room air. On reexam of the lungs (auscultation), he has decreased wheezing. He does have persistent, mild left lower lung rhonchi. Overall, there is improved air movement after the breathing treatment. Patient says he is feeling improved is comfortable with being discharged. Departure - Departure Disposition: 01 Home, Self Care Clinical Impression: Dyspnea Qualifiers: Dyspnea type: shortness of breath Qualified Code(s): R06.02 - Shortness of breath Condition: Good Instructions: ED Reactive Airway Disease Follow-Up: Kimmy Lim MD [Primary Care Provider] - Within 1 week (If not improving) Prescriptions: Benzonatate [Tessalon] 200 mg PO TID PRN #20 cap PRN Reason: Cough Comments: As we discussed, it appears to me that on your chest x-ray there is some very mild streaking in The lower lobe of the right lung; this might represent a very early pneumonia, but you have just started and appropriate antibiotic for such a respiratory infection (Augmentin) earlier today, so I would recommend you continue this antibiotic as prescribed. Similarly, continue the prednisone as prescribed by your primary care provider. I have electronically submitted a prescription for Tessalon (benzonatate, a cough suppressant) to the [facility] in [place]. Discharge Date/Time: 12/03/22 20:48
--- NOTE | 2022-12-03 19:23 | XRAY Report ---
PROCEDURE: Chest 2 View X-Ray INDICATIONS: Cough, SOA TECHNIQUE: 2 views of the chest were acquired. COMPARISON: Chest x-ray dated 09/13/2022 FINDINGS: Surgical changes and devices: Median sternotomy. Cervical fusion hardware. Lungs and pleura: No pleural effusions or pneumothorax. Lungs are clear. Mediastinum: Mediastinal contours appear normal. Heart size is normal. Bones and chest wall: No suspicious bony lesions. Overlying soft tissues appear unremarkable. IMPRESSION: No acute process. Reviewed by: Inder Farley MD on 12/03/2022 7:22 PM PDT Approved by: Inder Farley MD on 12/03/2022 7:22 PM PDT Station ID: [id number]
[2022-12-03] MEDS: BENZONATATE 100 MG CAPSULE PO STA (19:43)
[2022-12-03] MEDS: CHERRY SYRUP 10 ML UDC PO ONE (19:43)
[2022-12-03] MEDS: DEXAMETHASONE 10 MG/ML VIAL PO STA (19:43)
[2022-12-03] MEDS: LEVALBUTEROL 1.25 MG/3 ML NEB INH STA (19:45)
[2022-12-03] MEDS: IPRATROPIUM 0.2 MG/ML NEB INH STA (19:45)
[2022-12-03 20:48] VITALS: BP 148/81
== END 2022-12-03 20:48 | disposition home or self-care (01) ==
LOC: ED 18:56
DX: R06.02 Shortness of breath (principal); Z87.891 Personal history of nicotine dependence
CPT/HCPCS: 71046; 94640; 99283; 99284; A9270

== ENCOUNTER 2022-12-24 10:30 | Emergency (ER) | payer MEDICARE ==
[2022-12-24 11:06] VITALS: BP 111/86
--- NOTE | 2022-12-24 11:26 | XRAY Report ---
PROCEDURE: Chest 2 View X-Ray INDICATIONS: cough with SOA. TECHNIQUE: 2 views of the chest were acquired. COMPARISON: None. FINDINGS: Surgical changes and devices: None. Lungs and pleura: No pleural effusions or pneumothorax. Lungs are clear. Mediastinum: Mediastinal contours appear normal. Heart size is normal. Bones and chest wall: No suspicious bony lesions. Overlying soft tissues appear unremarkable. IMPRESSION: No acute cardiopulmonary process. Reviewed by: Leroy Sanders on 12/24/2022 11:25 AM PDT Approved by: Leroy Sanders on 12/24/2022 11:25 AM PDT Station ID: [id number]
== END 2022-12-24 12:42 | disposition left against medical advice (07) ==
LOC: ED 10:30
DX: Z53.21 Procedure and treatment not carried out due to patient leaving prior to being seen by health care provider (principal)

== ENCOUNTER 2022-12-25 09:45 | Emergency (ER) | payer MEDICARE ==
[2022-12-25 10:34] VITALS: BP 161/100
--- NOTE | 2022-12-25 11:11 | ED Physician Documentation ---
PD HPI DYSPNEA - Stated complaint Stated Complaint: SOA/CHOKING - Chief complaint Chief Complaint: Resp - History obtained from History obtained from: Patient, Family - History of Present Illness Timing - onset: How many days ago (5) Timing - onset during: Rest Timing - duration: Days (5) Timing - details: Gradual onset, Still present Inciting event(s): FB / choking Improved by: Inhaler/neb Worsened by: Coughing Associated symptoms: Cough, Wheezing, Chest pain / discomfort Similar symptoms before: Diagnosis (aspiration) Recently seen: Emergency Dept (3wks ago) - Additional information Additional information: 77-year-old Dominic Viveros has a history of achalasia and aspiration. He is complaining of increased shortness of breath since choking on a piece of corn beef 5 days ago. He presented to the emergency department yesterday but had to leave because he was not able to breathe. To go back home and take a breathing treatment. He had an x-ray done which was negative. He presents today after taking 3 nebulizer treatments at home and complaining of persistent shortness of breath and a cough. He is making some yellow and green phlegm. He indicates that he has previously had an issue with reflux and aspiration. He feels that he would benefit from a course of prednisone and Augmentin. Review of Systems Constitutional: denies: Fever Eyes: denies: Decreased vision Ears: denies: Ear pain Nose: reports: Congestion. denies: Rhinorrhea / runny nose Throat: denies: Sore throat Cardiac: reports: Chest pain / pressure. denies: Palpitations Respiratory: reports: Dyspnea, Cough GI: denies: Abdominal Pain, Vomiting, Diarrhea PD PAST MEDICAL HISTORY - Past Medical History Past Medical History: Yes Cardiovascular: Hypertension, Coronary artery disease, [place], Atrial fibrillation, Murmur, Other Respiratory: Asthma, COPD Neuro: Headaches Endocrine/Autoimmune: None GI: GERD, Hiatal hernia, Diverticulitis : Benign prostate hypertrophy, Nocturia HEENT: Chronic sinusitis, Chronic hearing loss Psych: Depression, Anxiety, Claustrophobia Musculoskeletal: Osteoarthritis, Chronic back pain, Other Derm: Herpes zoster, Other - Past Surgical History Past Surgical History: Yes General: Cholecystectomy, EGD Ortho: Hip replacement, Knee replacement, Arthroscopic surgery, Other Cardiovascular: CABG, Other HEENT: Other - Present Medications Home Medications: Ambulatory Orders Medication Instructions Recorded Confirmed Levalbuterol Tartrate [Xopenex Hfa] 2 puffs INH Q4H PRN 06/21/17 12/25/22 traZODone [Desyrel] 400 mg PO QPM 06/21/17 12/25/22 Metoprolol Tartrate 50 mg PO DAILY 08/01/17 12/25/22 Acetaminophen/Cod 300/30 [Tylenol 1 each PO Q6H PRN #20 tablet 09/28/19 12/25/22 #3] Furosemide 20 mg PO DAILY PRN 07/13/20 12/25/22 Omeprazole 20 mg PO DAILY 07/13/20 12/25/22 glipiZIDE [Glipizide ER] 2.5 mg PO DAILY 04/27/22 12/25/22 Isosorbide Mononitrate 10 mg PO DAILY 09/13/22 12/25/22 Amox/Clav 875/125 [Augmentin] 1 each PO Q12H #20 tablet 12/25/22 Brimonidine 0.2% Ophth Drops 75 drops EACHEYE BID 12/25/22 12/25/22 [Alphagan P 0.2% Ophth Drops] Latanoprost/Pf [Latanoprost 0.005% 7.5 ml OP HS 12/25/22 12/25/22 Eye Drop] Levalbuterol [Xopenex] 1.25 mg INH RTQ4H 12/25/22 12/25/22 Lisinopril [Zestril] 40 mg PO DAILY 12/25/22 12/25/22 predniSONE [Deltasone] 10 mg PO ONCE #26 tablet 12/25/22 - Allergies Allergies/Adverse Reactions: Allergies Allergy/AdvReac Type Severity Reaction Status Date / Time pantoprazole sodium * Allergy Intermediate Nausea Verified 12/25/22 09:52 [From Protonix] Vhwpgeu-PJC-XtZ Reductase Allergy Intermediate Unknown Verified 12/25/22 09:52 Inhibitor [Skfgnak-Xhr-Hrd Reductase Inhibitor] Sulfa (Sulfonamide Allergy Intermediate Rash Verified 12/25/22 09:52 Antibiotics) latex Allergy Mild Itching Verified 12/25/22 09:52 albuterol AdvReac Severe heart Verified 12/25/22 09:52 palpatation diazepam [From Valium] AdvReac Severe DELIRIUM Verified 12/25/22 09:52 hydrocodone [From [place]] AdvReac Anxiety Verified 12/25/22 09:52 morphine AdvReac Anxiety Verified 12/25/22 09:52 - Social History Does the pt smoke?: No Smoking Status: Former smoker Does the pt drink ETOH?: Yes ETOH Use: Beer Does the pt have substance abuse?: No - Immunizations Immunizations are current?: Yes - POLST Patient has POLST: No POLST Status: Full Code PD ED PE NORMAL - Vitals Vital signs reviewed: Yes (hypertensive mild ) - General General: Alert and oriented X 3, No acute distress, Well developed/nourished, Other (The patient is hard of hearing and reads lips ) - HEENT HEENT: Atraumatic, PERRL, EOMI - Neck Neck: Supple, no meningeal sign - Cardiac Cardiac: RRR, No murmur - Respiratory Respiratory: No respiratory distress, Other (scattered wheezes bilat ) - Abdomen Abdomen: Soft, Non tender - Back Back: No CVA TTP, No spinal TTP - Derm Derm: Normal color, Warm and dry, No rash - Extremities Extremities: No deformity, No edema - Neuro Neuro: Alert and oriented X 3, stevedore dock 2-12 intact, No motor deficit, No sensory deficit, Normal speech Eye Opening: Spontaneous Motor: Obeys Commands Verbal: Oriented GCS Score: 15 - Psych Psych: Normal mood, Normal affect Results - Vitals Vitals: Vital Signs - 24 hr 12/25/22 12/25/22 09:47 10:33 Temperature 36.1 C L Heart Rate 92 65 Respiratory 24 18 Rate Blood Pressure 137/75 H 161/100 H O2 Saturation 97 95 Oxygen O2 Source [] Room air O2 Source Room air - Rads (name of study) chest Relevant Findings:: Prelim report reviewed (Impression: No acute process.), EMP independent interpretation of test PD Medical Decision Making - ED course Complexity details: reviewed results, re-evaluated patient, considered differential, d/w patient, d/w family ED course: 77-year-old male with acute cough congestion and wheezing appears to have exacerbation of COPD. He felt that he might have aspiration pneumonia chest x- ray reveals normal-appearing lungs. The patient does have wheezing scattered throughout his chest. He is treated for exacerbation of COPD Departure - Departure Disposition: 01 Home, Self Care Clinical Impression: COPD (chronic obstructive pulmonary disease) Qualifiers: COPD type: COPD with acute exacerbation Qualified Code(s): J44.1 - Chronic obstructive pulmonary disease with (acute) exacerbation Condition: Stable Instructions: ED COPD Flare Follow-Up: Kimmy Lim MD [Primary Care Provider] - Prescriptions: Amox/Clav 875/125 [Augmentin] 1 each PO Q12H #20 tablet predniSONE [Deltasone] 10 mg PO ONCE #26 tablet Comments: Dominic today looks like you are having increased problems with your breathing. This may be related to the aspiration you had, but I do not see evidence of a pneumonia on your chest x-ray. Typically for the exacerbation of COPD we use a burst of prednisone and an antibiotic. I have E scribed some Augmentin as well as a course of prednisone to the [facility] in [place]. Expectations with treatment are improvement and continued improvement. Discharge Date/Time: 12/25/22 11:26
--- NOTE | 2022-12-25 11:40 | XRAY Report ---
PROCEDURE: Chest 1 View X-Ray INDICATIONS: chest pain TECHNIQUE: One view of the chest was acquired. COMPARISON: None. FINDINGS: Surgical changes and devices: Median sternotomy Lungs and pleura: No pleural effusions or pneumothorax. Lungs are clear. Mediastinum: Mediastinal contours appear normal. Heart size is normal. Bones and chest wall: No suspicious bony lesions. Overlying soft tissues appear unremarkable. IMPRESSION: No acute process. Reviewed by: Inder Farley MD on 12/25/2022 10:38 AM ANGELA Approved by: Inder Farley MD on 12/25/2022 10:38 AM ANGELA Station ID: [id number]
== END 2022-12-25 11:26 | disposition home or self-care (01) ==
LOC: ED 09:45
DX: J44.1 Chronic obstructive pulmonary disease with (acute) exacerbation (principal); Z87.891 Personal history of nicotine dependence
CPT/HCPCS: 99283; 99284

== ENCOUNTER 2023-01-21 12:24 | Emergency (ER) | payer MEDICARE ==
[2023-01-21 13:01] LABS: BASOPHILS # (AUTO) 0.1 10^3/uL (0.0-0.1); EOSINOPHILS # (AUTO) 0.2 10^3/uL (0.0-0.7); EOSINOPHILS % (AUTO) 3.3 %; HCT - HEMATOCRIT 42.7 % (42.0-52.0); HGB - HEMOGLOBIN 14.5 g/dL (14.0-18.0); LYMPHOCYTES % (AUTO) 17.7 %; MEAN CORPUSCULAR HEMOGLOBIN 31.5 pg (27.0-31.0); MEAN CORPUSCULAR VOLUME 92.6 fL (80.0-94.0); MEAN PLATELET VOLUME 8.6 fL (7.4-11.4); MONOCYTES # (AUTO) 0.7 10^3/uL (0.0-1.0); MONOCYTES % (AUTO) 11.3 %; NEUTROPHILS # (AUTO) 3.8 10^3/uL (1.5-6.6); NEUTROPHILS % (AUTO) 66.5 %; PLT - PLATELET COUNT 216 10^3/uL (130-450); RED BLOOD COUNT 4.61 10^6/uL (4.70-6.10); RED CELL DISTRIBUTION WIDTH 12.4 % (12.0-15.0); WHITE BLOOD COUNT 5.8 x10^3/uL (4.8-10.8)
[2023-01-21 13:17] LABS: ALBUMIN 4.5 g/dL (3.2-5.5); ALBUMIN/GLOBULIN RATIO 1.4 (1.0-2.2); BILIRUBIN,TOTAL 0.7 mg/dL (0.2-1.0); CALCIUM 8.7 mg/dL (8.5-10.3); POTASSIUM 3.8 mmol/L (3.5-5.0); TOTAL PROTEIN 7.8 g/dL (6.7-8.2)
--- NOTE | 2023-01-21 13:29 | XRAY Report ---
PROCEDURE: Chest 1 View X-Ray INDICATIONS: Chest pain TECHNIQUE: One view of the chest was acquired. COMPARISON: None. FINDINGS: Surgical changes and devices: None. Lungs and pleura: No pleural effusions or pneumothorax. Lungs are clear. Mediastinum: Mediastinal contours appear normal. Heart size is normal. Bones and chest wall: No suspicious bony lesions. Overlying soft tissues appear unremarkable. IMPRESSION: No acute cardiopulmonary process. Reviewed by: Leroy Sanders on 01/21/2023 1:28 PM PDT Approved by: Leroy Sanders on 01/21/2023 1:28 PM PDT Station ID: [id number]
--- OUTSIDE RECORDS SUMMARY | 2023-01-21 13:51 | EXTERNAL MEDICAL SUMMARY RPT | Continuity of Care Document ---
Author Name Unknown Address [address] [place] [address] Phone Organization [facility] Address [address] [place] [address] Phone Problems date description facility 2023-01-19 14:43 Alcohol use, unspeci fied with withdrawal, unspecified [facility]
[2023-01-21] MEDS ORDERED: predniSONE 20 MG TABLET PO STA (14:23)
[2023-01-21] MEDS ORDERED: LEVALBUTEROL 1.25 MG/3 ML NEB INH STA (14:24)
[2023-01-21] MEDS ORDERED: oxyCODONE 5 MG TABLET PO STA (14:30)
--- NOTE | 2023-01-21 14:51 | ED Physician Documentation ---
History of Present Illness - Stated complaint Stated Complaint: CHEST PX/SHAKY - Chief complaint Chief Complaint: Cardiac - History obtained from History obtained from: Patient - History of Present Illness Timing: How many weeks ago (1) Pain level max: 8 Pain level now: 8 - Additonal information Additional information: Patient is a 77-year-old male who is on chronic pain medications at home. He states that about a week ago he slipped and fell backwards injuring his low back. Denies any loss of bowel or bladder control. No fevers. No chills. He states that he has had chest pain intermittently for the past several weeks. Described as sharp, last for a few seconds. Nothing seems to make it better or worse. Review of Systems Constitutional: denies: Fever, Chills Nose: denies: Rhinorrhea / runny nose, Congestion Cardiac: denies: Palpitations Respiratory: reports: Dyspnea, Cough (Chronic, unchanged), Wheezing (COPD) GI: denies: Nausea, Vomiting, Diarrhea Skin: denies: Rash Musculoskeletal: denies: Neck pain Neurologic: denies: Focal weakness, Numbness, Headache PD PAST MEDICAL HISTORY - Past Medical History Cardiovascular: Hypertension, Coronary artery disease, [place], Atrial fibrillation, Murmur, Other Respiratory: Asthma, COPD Neuro: Headaches Endocrine/Autoimmune: None GI: GERD, Hiatal hernia, Diverticulitis : Benign prostate hypertrophy, Nocturia HEENT: Chronic sinusitis, Chronic hearing loss Psych: Depression, Anxiety, Claustrophobia Musculoskeletal: Osteoarthritis, Chronic back pain, Other Derm: Herpes zoster, Other - Past Surgical History Past Surgical History: Yes General: Cholecystectomy, EGD Ortho: Hip replacement, Knee replacement, Arthroscopic surgery, Other Cardiovascular: CABG, Other HEENT: Other - Present Medications Home Medications: Ambulatory Orders Medication Instructions Recorded Confirmed Levalbuterol Tartrate [Xopenex Hfa] 2 puffs INH Q4H PRN 06/21/17 12/25/22 traZODone [Desyrel] 400 mg PO QPM 06/21/17 12/25/22 Metoprolol Tartrate 50 mg PO DAILY 08/01/17 12/25/22 Acetaminophen/Cod 300/30 [Tylenol 1 each PO Q6H PRN #20 tablet 09/28/19 12/25/22 #3] Furosemide 20 mg PO DAILY PRN 07/13/20 12/25/22 Omeprazole 20 mg PO DAILY 07/13/20 12/25/22 glipiZIDE [Glipizide ER] 2.5 mg PO DAILY 04/27/22 12/25/22 Isosorbide Mononitrate 10 mg PO DAILY 09/13/22 12/25/22 Amox/Clav 875/125 [Augmentin] 1 each PO Q12H #20 tablet 12/25/22 Brimonidine 0.2% Ophth Drops 75 drops EACHEYE BID 12/25/22 12/25/22 [Alphagan P 0.2% Ophth Drops] Latanoprost/Pf [Latanoprost 0.005% 7.5 ml OP HS 12/25/22 12/25/22 Eye Drop] Levalbuterol [Xopenex] 1.25 mg INH RTQ4H 12/25/22 12/25/22 Lisinopril [Zestril] 40 mg PO DAILY 12/25/22 12/25/22 predniSONE [Deltasone] 10 mg PO ONCE #26 tablet 12/25/22 oxyCODONE [Roxicodone] 5 mg PO Q6H PRN #4 tablet MDD 6 01/21/23 predniSONE [Deltasone] 10 mg PO [id number] #42 tab 01/21/23 - Allergies Allergies/Adverse Reactions: Allergies Allergy/AdvReac Type Severity Reaction Status Date / Time pantoprazole sodium * Allergy Intermediate Nausea Verified 01/21/23 12:42 [From Protonix] Hroowda-MDA-NhI Reductase Allergy Intermediate Unknown Verified 01/21/23 12:42 Inhibitor [Kpqnsxe-Khv-Ija Reductase Inhibitor] Sulfa (Sulfonamide Allergy Intermediate Rash Verified 01/21/23 12:42 Antibiotics) latex Allergy Mild Itching Verified 01/21/23 12:42 albuterol AdvReac Severe heart Verified 01/21/23 12:42 palpatation diazepam [From Valium] AdvReac Severe DELIRIUM Verified 01/21/23 12:42 hydrocodone [From [place]] AdvReac Anxiety Verified 01/21/23 12:42 morphine AdvReac Anxiety Verified 01/21/23 12:42 - Social History Does the pt smoke?: No Smoking Status: Former smoker Does the pt drink ETOH?: Yes Does the pt have substance abuse?: No - Immunizations Immunizations are current?: Yes - POLST Patient has POLST: No POLST Status: Full Code PD ED PE NORMAL - Vitals Vital signs reviewed: Yes - General General: Alert and oriented X 3, No acute distress - HEENT HEENT: PERRL, Moist mucous membranes - Neck Neck: Supple, no meningeal sign - Cardiac Cardiac: RRR, Strong equal pulses - Respiratory Respiratory: No respiratory distress, Other (mild wheezing B) - Abdomen Abdomen: Soft, Non tender, Non distended - Derm Derm: Warm and dry - Extremities Extremities: No edema, No calf tenderness / cord - Neuro Neuro: Alert and oriented X 3 - Psych Psych: Normal mood, Normal affect Results - Vitals Vitals: Vital Signs - 24 hr 01/21/23 01/21/23 01/21/23 12:37 12:42 14:42 Temperature 36.9 C 36.9 C 36.8 C Heart Rate 86 86 86 Respiratory 16 16 16 Rate Blood Pressure 146/75 H 146/75 H 140/72 H O2 Saturation 95 95 96 01/21/23 14:43 Temperature Heart Rate 88 Respiratory 18 Rate Blood Pressure O2 Saturation Oxygen O2 Source [] Room air O2 Source Room air - EKG (time done) 1238 EKG releavant findings:: EKG personally interpreted by author of this note. Relevant findings are: Rate: Rate (enter#) (98) Rhythm: NSR Myton: Normal Intervals: Normal DE QRS: Normal Ischemia: Normal ST segments - Labs Labs: Laboratory Tests 01/21/23 01/21/23 01/21/23 12:55 12:55 12:55 WBC 5.8 RBC 4.61 L Hgb 14.5 Hct 42.7 MCV 92.6 MCH 31.5 H MCHC 34.0 RDW 12.4 Plt Count 216 MPV 8.6 Neut # (Auto) 3.8 Lymph # (Auto) 1.0 L [place] # (Auto) 0.7 Eos # (Auto) 0.2 Baso # (Auto) 0.1 Absolute Nucleated RBC 0.00 Nucleated RBC % 0.0 Sodium 139 Potassium 3.8 Chloride 101 Carbon Dioxide 29 Anion Gap 9.0 BUN 14 Creatinine 1.0 Estimated GFR (MDRD) 72 L Glucose 121 H Calcium 8.7 Total Bilirubin 0.7 AST 35 ALT 40 Alkaline Phosphatase 60 Troponin I High Sens 7.5 Total Protein 7.8 Albumin 4.5 Globulin 3.3 Albumin/Globulin Ratio 1.4 Lipase 33 - Rads (name of study) cxr Relevant Findings:: Final report received, See rad report L spine xray Relevant Findings:: Final report received, See rad report sacrum xray Relevant Findings:: Final report received, See rad report PD Medical Decision Making - ED course Complexity details: reviewed results, re-evaluated patient, considered jr block, d/w patient, d/w family ED course: 77-year-old male with back pain after a ground-level fall. Pain well controlled here. No acute neurological deficits. No evidence of cauda equina, epidural abscess. X-rays do not show any acute abnormalities of the chest, sacrum or lumbar spine. Patient did receive Xopenex treatments for his COPD along with steroids. We will place him on a steroid taper for home. He requested azithromycin, but there is no fever, no significant change in cough, no indication that this is a bacterial infection. We will prescribe a very limited amount of pain medication for home as he is on a pain contract with his doctor and has had issues with pain medication in the past. His is aware of the prescription as well. Patient counseled regarding signs and symptoms for which I believe and urgent re-evaluation would be necessary. Patient with good understanding of and agreement to plan and is comfortable going home at this oren e This document was made in part using voice recognition software. While efforts are made to proofread this document, sound alike and grammatical errors may occur. Departure - Departure Disposition: 01 Home, Self Care Clinical Impression: COPD exacerbation Chronic back pain Qualifiers: Back pain location: low back pain Back pain laterality: bilateral Sciatica presence: without sciatica Qualified Code(s): M54.50 - Low back pain, unspecified Condition: Good Instructions: ED COPD Flare, ED Neck Back Pain General Follow-Up: Kimmy Lim MD [Provider Admit Priv/Credential] - Kimmy Lim MD [Provider Admit Priv/Credential] - Within 1 week Prescriptions: predniSONE [Deltasone] 10 mg PO [id number] #42 tab oxyCODONE [Roxicodone] 5 mg PO Q6H PRN #4 tablet MDD 6 PRN Reason: pain Comments: Please follow-up with your doctor for further care. I do not see any acute abnormalities on your x-ray. Your prescriptions were sent to [facility] in [place]. I am prescribing a short course of narcotic pain medication for you. These are potentially dangerous and addictive medications that should be used carefully. These medications may constipate you. Take an ghxx-xho-hotihje stool softener (docusate) twice daily with plenty of water while taking these medications. If you go 24 hours without a bowel movement, take nvta-wcb-mkoaqew miralax, per package instructions. Do not drink or drive while taking these medications. If you received narcotic or sedating medications while in the emergency department, do not drive for 24 hours. Store this medication in a safe, secure place and out of reach of children. It is a violation of federal law to give or sell this medication to another person or to use in a manner other than prescribed. The ED will not refill narcotic prescriptions, including prescriptions lost or stolen. To dispose of unwanted medications: 1. [facility] at [address] in [place] has a medication drop box. They accept prescription medications (in pill form) Tuesday through Tuesday 9:00 a.m. to 5:00 p.m. 2. The [facility] [employer] accepts prescription medications (in pill form only) for disposal year round. Call for more information. 3. Contact the [facility] for the next [facility] sponsored prescription drug collection event. , [phone], or [phone]; Discharge Date/Time: 01/21/23 15:15
[2023-01-21 15:05] VITALS: BP 140/72
--- NOTE | 2023-01-21 15:08 | XRAY Report ---
PROCEDURE: Sacrum/Coccyx INDICATIONS: fall, back pain TECHNIQUE: 3 views of the sacrum and coccyx acquired. COMPARISON: CT of abdomen and pelvis dated 06/11/2022 FINDINGS: Bones: Postsurgical changes are noted in lower lumbar spine from spine fusion. There is bilateral tot al hip arthroplasty. No fractures or dislocations. No gross hardware loosening or failure. No suspic ious bony lesions. Soft tissues: Visualized bowel gas pattern is normal. No suspicious soft tissue densities. IMPRESSION: No gross acute sacral or coccygeal fractures. No gross soft tissue abnormalities. Postsurgical change s in lower lumbar spine and bilateral hip. No gross hardware loosening or failure. Reviewed by: Satish Jarrett MD on 01/21/2023 3:06 PM PDT Approved by: Satish Jarrett MD on 01/21/2023 3:06 PM PDT Station ID: [id number]
--- NOTE | 2023-01-21 15:10 | XRAY Report ---
PROCEDURE: Lumbar Spine 2 View INDICATIONS: fall, back pain TECHNIQUE: 2 views of the lumbar spine were acquired. COMPARISON: None. FINDINGS: Bones: 5 alo-hel-nmyrxsv vertebrae are present. There is prior posterior fusion at L2-S1 levels. Int ervertebral spacer placement at L2-3 through L5-S1 levels are also seen. No gross hardware loosening or failure. No acute vertebral body compression fractures. Degenerative disc disease and vacuum disc phenomenon at L1-2 level is seen. No suspicious bony lesions. Soft tissues: Overlying bowel gas pattern is normal. No suspicious soft tissue calcifications. IMPRESSION: Prior posterior fusion at L2-S1 levels with straightening of normal lumbar lordosis. No acute compression fracture or spondylolisthesis. No gross hardware loosening or failure. Degenerative disc disease at L1-2 level. Reviewed by: Satish Jarrett MD on 01/21/2023 3:08 PM PDT Approved by: Satish Jarrett MD on 01/21/2023 3:08 PM PDT Station ID: [id number]
== END 2023-01-21 15:15 | disposition home or self-care (01) ==
LOC: ED 12:24
DX: J44.1 Chronic obstructive pulmonary disease with (acute) exacerbation (principal); M54.50 Low back pain, unspecified; G89.29 Other chronic pain; I10 Essential (primary) hypertension; I48.91 Unspecified atrial fibrillation; I25.10 Atherosclerotic heart disease of native coronary artery without angina pectoris; I25.2 Old myocardial infarction; Z87.891 Personal history of nicotine dependence; Z79.899 Other long term (current) drug therapy; Z79.84 Long term (current) use of oral hypoglycemic drugs
CPT/HCPCS: 36415; 71045; 72100; 72220; 80053; 83690; 84484; 85025; 93005; 94640; 99284; A9270; J7512

== ENCOUNTER 2023-02-01 11:01 | Outpatient (CLI) | payer MEDICARE ==
[2023-02-01 11:16] LABS: BASOPHILS % (AUTO) 0.7 %; EOSINOPHILS # (AUTO) 0.2 10^3/uL (0.0-0.7); EOSINOPHILS % (AUTO) 3.7 %; HCT - HEMATOCRIT 40.4 % (42.0-52.0); HGB - HEMOGLOBIN 13.7 g/dL (14.0-18.0); LYMPHOCYTES # (AUTO) 1.6 10^3/uL (1.5-3.5); MEAN CORPUSCULAR HEMOGLOBIN 31.5 pg (27.0-31.0); MEAN CORPUSCULAR HGB CONC 33.9 g/dL (32.0-36.0); MEAN CORPUSCULAR VOLUME 92.9 fL (80.0-94.0); MEAN PLATELET VOLUME 8.8 fL (7.4-11.4); MONOCYTES # (AUTO) 0.8 10^3/uL (0.0-1.0); MONOCYTES % (AUTO) 12.6 %; NEUTROPHILS # (AUTO) 3.3 10^3/uL (1.5-6.6); NEUTROPHILS % (AUTO) 55.5 %; PLT - PLATELET COUNT 221 10^3/uL (130-450); RED BLOOD COUNT 4.35 10^6/uL (4.70-6.10); RED CELL DISTRIBUTION WIDTH 12.4 % (12.0-15.0)
[2023-02-01 11:34] LABS: % IRON SATURATION 19 % (20-50); IRON 79 ug/dL (45-182); TOTAL IRON BINDING CAPACITY 416 ug/dL (250-450); TRANSFERRIN 297 mg/dL (180-329)
== END 2023-02-01 11:02 | disposition home or self-care (01) ==
LOC: LAB 11:01
PROVIDERS: ATTEND Internal Medicine
DX: I10 Essential (primary) hypertension (principal); D64.9 Anemia, unspecified; M54.9 Dorsalgia, unspecified
CPT/HCPCS: 36415; 82728; 83540; 84466; 85025

== ENCOUNTER 2023-02-13 09:58 | Emergency (ER) | payer MEDICARE ==
--- OUTSIDE RECORDS SUMMARY | 2023-02-13 10:06 | EXTERNAL MEDICAL SUMMARY RPT | Continuity of Care Document ---
Author Name Unknown Address [address] [place] [address] Phone Organization [facility] Address [address] [place] [address] Phone Problems date description facility 2023-01-19 14:43 Alcohol use, unspeci fied with withdrawal, unspecified [facility]
[2023-02-13 11:05] LABS: BASOPHILS # (AUTO) 0.1 10^3/uL (0.0-0.1); BASOPHILS % (AUTO) 0.8 %; EOSINOPHILS # (AUTO) 0.8 10^3/uL (0.0-0.7); EOSINOPHILS % (AUTO) 10.6 %; HCT - HEMATOCRIT 41.9 % (42.0-52.0); HGB - HEMOGLOBIN 13.9 g/dL (14.0-18.0); LYMPHOCYTES # (AUTO) 1.4 10^3/uL (1.5-3.5); LYMPHOCYTES % (AUTO) 19.4 %; MEAN CORPUSCULAR HGB CONC 33.2 g/dL (32.0-36.0); MEAN CORPUSCULAR VOLUME 93.3 fL (80.0-94.0); MEAN PLATELET VOLUME 8.8 fL (7.4-11.4); MONOCYTES # (AUTO) 0.7 10^3/uL (0.0-1.0); MONOCYTES % (AUTO) 10.2 %; NEUTROPHILS # (AUTO) 4.2 10^3/uL (1.5-6.6); NEUTROPHILS % (AUTO) 58.6 %; PLT - PLATELET COUNT 222 10^3/uL (130-450); RED BLOOD COUNT 4.49 10^6/uL (4.70-6.10); RED CELL DISTRIBUTION WIDTH 12.5 % (12.0-15.0); WHITE BLOOD COUNT 7.2 x10^3/uL (4.8-10.8)
[2023-02-13] MEDS ORDERED: IPRATROPIUM/ALBUTEROL 3 ML NEB INH STA (11:13)
[2023-02-13] MEDS ORDERED: HYDROmorphone 1 MG/ML CARPUJECT IM STA (11:13)
[2023-02-13] MEDS ORDERED: DEXAMETHASONE 10 MG/ML VIAL IM STA (11:13)
[2023-02-13 11:15] LABS: ALBUMIN 4.1 g/dL (3.2-5.5); ALBUMIN/GLOBULIN RATIO 1.4 (1.0-2.2); BILIRUBIN,TOTAL 0.7 mg/dL (0.2-1.0); TOTAL PROTEIN 7.1 g/dL (6.7-8.2)
--- NOTE | 2023-02-13 11:25 | XRAY Report ---
PROCEDURE: Chest 2 View X-Ray INDICATIONS: cough TECHNIQUE: 2 views of the chest were acquired. COMPARISON: 12/24/2022 FINDINGS: Surgical changes and devices: Status post median sternotomy. Lungs and pleura: No pleural effusions or pneumothorax. Lungs are clear. Mediastinum: Mediastinal contours appear normal. Heart size is normal. Bones and chest wall: No suspicious bony lesions. Right curvature of the thoracic spine. Overlying soft tissues appear unremarkable. The thoracic spine demonstrates lordosis on the lateral view. IMPRESSION: No acute cardiopulmonary process. Reviewed by: Reid Martell on 02/13/2023 10:23 AM [facility] Approved by: Reid Martell on 02/13/2023 10:23 AM [facility] Station ID: [id number]
[2023-02-13 12:11] LABS: B. PARAPERTUSSIS- RESP PCR PAN NOT DETECTED; B. PERTUSSIS- RESP PCR PANEL NOT DETECTED; C. PNEUMONIAE- RESP PCR PANEL NOT DETECTED; CORONAVIRUS 229E-RESP PCR NOT DETECTED; CORONAVIRUS HKU1-RESP PCR NOT DETECTED; CORONAVIRUS NL63-RESP PCR NOT DETECTED; CORONAVIRUS OC43-RESP PCR NOT DETECTED; HUMAN METAPNEUMOVIRUS NOT DETECTED; INFLUENZA A- RESP PCR PANEL NOT DETECTED; INFLUENZA B - RESP PCR PANEL NOT DETECTED; M. PNEUMONIAE- RESP PCR PANEL NOT DETECTED; PARAINFLUENZA VIRUS 1 NOT DETECTED; PARAINFLUENZA VIRUS 2 NOT DETECTED; PARAINFLUENZA VIRUS 3 NOT DETECTED; PARAINFLUENZA VIRUS 4 NOT DETECTED; RHINOVIRUS/ENTEROVIRUS NOT DETECTED; RSV- RESP PCR PANEL NOT DETECTED; SARS-CoV-2 -RESP PCR PANEL NOT DETECTED
--- NOTE | 2023-02-13 12:23 | ED Physician Documentation ---
History of Present Illness - Stated complaint Stated Complaint: COUGH/SOB - Chief complaint Chief Complaint: Resp - History obtained from History obtained from: Patient - Additonal information Additional information: PT comes to the ED with CC of dyspnea and cough for the past few days. He always has dyspnea, secondary to significant underlying COPD. He is on O2 round the clock, and has a nebulizer machine at home, which he uses intermittently. He states a treatment last night didn't seem to help. No fevers. He is concerned he has pneumonia. PD PAST MEDICAL HISTORY - Past Medical History Cardiovascular: Hypertension, Coronary artery disease, [place], Atrial fibrillation, Murmur, Other Respiratory: Asthma, COPD Neuro: Headaches Endocrine/Autoimmune: None GI: GERD, Hiatal hernia, Diverticulitis : Benign prostate hypertrophy, Nocturia HEENT: Chronic sinusitis, Chronic hearing loss Psych: Depression, Anxiety, Claustrophobia Musculoskeletal: Osteoarthritis, Chronic back pain, Other Derm: Herpes zoster, Other - Past Surgical History Past Surgical History: Yes General: Cholecystectomy, EGD Ortho: Hip replacement, Knee replacement, Arthroscopic surgery, Other Cardiovascular: CABG, Other HEENT: Other - Present Medications Home Medications: Ambulatory Orders Medication Instructions Recorded Confirmed Levalbuterol Tartrate [Xopenex Hfa] 2 puffs INH Q4H PRN 06/21/17 12/25/22 traZODone [Desyrel] 400 mg PO QPM 06/21/17 12/25/22 Metoprolol Tartrate 50 mg PO DAILY 08/01/17 02/13/23 Acetaminophen/Cod 300/30 [Tylenol 1 each PO Q6H PRN #20 tablet 09/28/19 12/25/22 #3] Furosemide 20 mg PO DAILY PRN 07/13/20 02/13/23 Omeprazole 20 mg PO DAILY 07/13/20 02/13/23 glipiZIDE [Glipizide ER] 2.5 mg PO DAILY 04/27/22 02/13/23 Isosorbide Mononitrate 10 mg PO DAILY 09/13/22 12/25/22 Amox/Clav 875/125 [Augmentin] 1 each PO Q12H #20 tablet 12/25/22 Brimonidine 0.2% Ophth Drops 75 drops EACHEYE BID 12/25/22 12/25/22 [Alphagan P 0.2% Ophth Drops] Latanoprost/Pf [Latanoprost 0.005% 7.5 ml OP HS 12/25/22 12/25/22 Eye Drop] Levalbuterol [Xopenex] 1.25 mg INH RTQ4H 12/25/22 12/25/22 Lisinopril [Zestril] 40 mg PO DAILY 12/25/22 02/13/23 predniSONE [Deltasone] 10 mg PO ONCE #26 tablet 12/25/22 oxyCODONE [Roxicodone] 5 mg PO Q6H PRN #4 tablet MDD 6 01/21/23 02/13/23 predniSONE [Deltasone] 10 mg PO [id number] #42 tab 01/21/23 Amox/Clav 875/125 [Augmentin] 1 each PO Q12H #14 tablet 02/13/23 predniSONE [Deltasone] 10 mg PO [id number] #42 tab 02/13/23 - Allergies Allergies/Adverse Reactions: Allergies Allergy/AdvReac Type Severity Reaction Status Date / Time pantoprazole sodium * Allergy Intermediate Nausea Verified 01/21/23 12:42 [From Protonix] Nxbvocp-LSU-MsT Reductase Allergy Intermediate Unknown Verified 01/21/23 12:42 Inhibitor [Jlhbvze-Knd-Xlw Reductase Inhibitor] Sulfa (Sulfonamide Allergy Intermediate Rash Verified 01/21/23 12:42 Antibiotics) latex Allergy Mild Itching Verified 01/21/23 12:42 albuterol AdvReac Severe heart Verified 01/21/23 12:42 palpatation diazepam [From Valium] AdvReac Severe DELIRIUM Verified 01/21/23 12:42 hydrocodone [From [place]] AdvReac Anxiety Verified 01/21/23 12:42 morphine AdvReac Anxiety Verified 01/21/23 12:42 - Social History Does the pt smoke?: No Smoking Status: Never smoker Does the pt drink ETOH?: Yes Does the pt have substance abuse?: No - Immunizations Immunizations are current?: Yes - POLST Patient has POLST: No POLST Status: Full Code PD ED PE NORMAL - Vitals Vital signs reviewed: Yes - General General: Alert and oriented X 3, No acute distress, Well developed/nourished - HEENT HEENT: Atraumatic, PERRL, EOMI, Moist mucous membranes - Neck Neck: Supple, no meningeal sign - Cardiac Cardiac: RRR, No murmur, Strong equal pulses - Respiratory Respiratory: Other (Mildly labored respirations. Dimished air movement bilaterally, with tight wheezes throughout.) - Abdomen Abdomen: Soft, Non tender, Non distended - Derm Derm: Normal color, Warm and dry, No rash - Extremities Extremities: No deformity, No edema - Neuro Neuro: Alert and oriented X 3 - Psych Psych: Normal mood, Normal affect Results - Vitals Vitals: Oxygen O2 Source [With Activity] Room air O2 Source Room air - Labs Labs: Laboratory Tests 02/13/23 02/13/23 02/13/23 10:50 10:50 10:50 WBC 7.2 RBC 4.49 L Hgb 13.9 L Hct 41.9 L MCV 93.3 MCH 31.0 MCHC 33.2 RDW 12.5 Plt Count 222 MPV 8.8 Neut # (Auto) 4.2 Lymph # (Auto) 1.4 L Cass # (Auto) 0.7 Eos # (Auto) 0.8 H Baso # (Auto) 0.1 Absolute Nucleated RBC 0.00 Nucleated RBC % 0.0 Sodium 138 Potassium 4.0 Chloride 102 Carbon Dioxide 28 Anion Gap 8.0 BUN 21 H Creatinine 1.0 Estimated GFR (MDRD) 72 L Glucose 136 H Calcium 9.0 Total Bilirubin 0.7 AST 29 ALT 35 Alkaline Phosphatase 55 B-Natriuretic Peptide 87 Total Protein 7.1 Albumin 4.1 Globulin 3.0 Albumin/Globulin Ratio 1.4 Lipase 30 Nasal Adenovirus (PCR) Nasal B. parapertussis DNA (PCR) Nasal Coronavir 229E PCR Nasal Coronavir HKU1 PCR Nasal Coronavir NL63 PCR Nasal Coronavir OC43 PCR Nasal Enterovir/Rhinovir PCR Nasal Influenza B PCR Nasal Influenza A PCR Nasal Parainfluen 1 PCR Nasal Parainfluen 2 PCR Nasal Parainfluen 3 PCR Nasal Parainfluen 4 PCR Nasal RSV (PCR) Nasal B.pertussis DNA PCR Nasal C.pneumoniae (PCR) Jesús Human Metapneumo PCR Nasal M.pneumoniae (PCR) Nasal SARS-CoV-2 (PCR) 02/13/23 10:59 WBC RBC Hgb Hct MCV MCH MCHC RDW Plt Count MPV Neut # (Auto) Lymph # (Auto) Cass # (Auto) Eos # (Auto) Baso # (Auto) Absolute Nucleated RBC Nucleated RBC % Sodium Potassium Chloride Carbon Dioxide Anion Gap BUN Creatinine Estimated GFR (MDRD) Glucose Calcium Total Bilirubin AST ALT Alkaline Phosphatase B-Natriuretic Peptide Total Protein Albumin Globulin Albumin/Globulin Ratio Lipase Nasal Adenovirus (PCR) NOT DETECTED Nasal B. parapertussis DNA (PCR) NOT DETECTED Nasal Coronavir 229E PCR NOT DETECTED Nasal Coronavir HKU1 PCR NOT DETECTED Nasal Coronavir NL63 PCR NOT DETECTED Nasal Coronavir OC43 PCR NOT DETECTED Nasal Enterovir/Rhinovir PCR NOT DETECTED Nasal Influenza B PCR NOT DETECTED Nasal Influenza A PCR NOT DETECTED Nasal Parainfluen 1 PCR NOT DETECTED Nasal Parainfluen 2 PCR NOT DETECTED Nasal Parainfluen 3 PCR NOT DETECTED Nasal Parainfluen 4 PCR NOT DETECTED Nasal RSV (PCR) NOT DETECTED Nasal B.pertussis DNA PCR NOT DETECTED Nasal C.pneumoniae (PCR) NOT DETECTED Jesús Human Metapneumo PCR NOT DETECTED Nasal M.pneumoniae (PCR) NOT DETECTED Nasal SARS-CoV-2 (PCR) NOT DETECTED - Rads (name of study) chest XR Relevant Findings:: Final report received, See rad report (clear) PD Medical Decision Making - ED course Complexity details: reviewed old records, reviewed results, re-evaluated patient, considered differential, d/w patient ED course: The pt was treated with a duoneb and Decadron, and reported feeling much better. His CXR was clear. WBC count and BNP were normal, and PCR panel was negative. We have discussed home management of the sx, as well as the usual indications fo r return. Departure - Departure Disposition: 01 Home, Self Care Clinical Impression: COPD exacerbation Condition: Stable Instructions: ED COPD Flare Prescriptions: Amox/Clav 875/125 [Augmentin] 1 each PO Q12H #14 tablet predniSONE [Deltasone] 10 mg PO [id number] #42 tab Comments: Your chest x-ray looks great, but your lungs are very tight and wheezy. You have improved with a breathing treatment and steroids, and will need to be taking your leave albuterol regularly at home. You should be using this every 4 hours until you are feeling better. A prescription for the steroid has been electronically transmitted to [facility] in [place], your pharmacy of choice on record. As far as your pain control at home, you will need to take your usual pain medications. Please schedule follow-up with your doctor as soon as possible. Discharge Date/Time: 02/13/23 12:52
[2023-02-13 12:54] VITALS: BP 150/77
== END 2023-02-13 12:52 | disposition home or self-care (01) ==
LOC: ED 09:58
DX: J44.1 Chronic obstructive pulmonary disease with (acute) exacerbation (principal); I10 Essential (primary) hypertension; I25.810 Atherosclerosis of coronary artery bypass graft(s) without angina pectoris; I25.2 Old myocardial infarction; I48.91 Unspecified atrial fibrillation; Z79.899 Other long term (current) drug therapy; Z20.822 Contact with and (suspected) exposure to COVID-19; Z79.84 Long term (current) use of oral hypoglycemic drugs; Z95.1 Presence of aortocoronary bypass graft; Z91.040 Latex allergy status
CPT/HCPCS: 36415; 71046; 80053; 83690; 83880; 85025; 87633; 94640; 96372; 99283; 99284; J1170

== ENCOUNTER 2023-04-02 08:06 | Emergency (ER) | payer MEDICARE ==
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
--- OUTSIDE RECORDS SUMMARY | 2023-04-02 08:24 | EXTERNAL MEDICAL SUMMARY RPT | Continuity of Care Document ---
Author Name Unknown Address [address] [place] [address] Phone Organization [facility] Address [address] [place] [address] Phone Problems date description facility 2023-01-19 14:43 Alcohol use, unspeci fied with withdrawal, unspecified [facility]
[2023-04-02 08:35] VITALS: BP 127/60; O2SAT 94
[2023-04-02] MEDS ORDERED: dexAMETHasone 4 MG TABLET PO STA (08:36)
[2023-04-02] MEDS ORDERED: DOXYCYCLINE 100 MG TABLET PO STA (08:36)
[2023-04-02] MEDS ORDERED: LEVALBUTEROL 1.25 MG/3 ML NEB INH STA (08:37)
[2023-04-02] MEDS ORDERED: IPRATROPIUM 0.2 MG/ML NEB INH STA (08:37)
--- NOTE | 2023-04-02 09:10 | XRAY Report ---
PROCEDURE: Chest 1 View X-Ray INDICATIONS: dyspnea/cough/COPD TECHNIQUE: One view of the chest was acquired. COMPARISON: 02/20/2023, 12/25/2022, 04/27/2022 FINDINGS: Surgical changes and devices: Sternotomy changes are noted. Cervical spine fixation hardware is par tially seen. Lungs and pleura: An incomplete inspiratory result is noted, with low lung volumes and crowding of t he vascular markings. No focal infiltrates are seen. No large pneumothorax or large pleural effusion can be seen. Mediastinum: The aorta is prominent and tortuous. The cardiac contours are within normal limits. Bones and chest wall: No suspicious bony lesions. Age-appropriate degenerative changes are seen. O verlying soft tissues appear unremarkable. IMPRESSION: Low lung volumes, without an acute abnormality identified. Postoperative and degenerative changes are seen. Reviewed by: Bharath Hsu MD on 04/02/2023 8:09 AM ANGELA Approved by: Bharath Hsu MD on 04/02/2023 8:09 AM ANGELA Station ID: [id number]
== END 2023-04-02 09:52 | disposition home or self-care (01) ==
LOC: ED 08:06
DX: J44.1 Chronic obstructive pulmonary disease with (acute) exacerbation (principal); I10 Essential (primary) hypertension; I48.91 Unspecified atrial fibrillation; I25.810 Atherosclerosis of coronary artery bypass graft(s) without angina pectoris; Z77.110 Contact with and (suspected) exposure to air pollution; Z95.1 Presence of aortocoronary bypass graft; Z79.899 Other long term (current) drug therapy; Z79.84 Long term (current) use of oral hypoglycemic drugs
CPT/HCPCS: 71045; 94640; 99283; 99284; A9270; J8540

== ENCOUNTER 2023-04-12 10:28 | Emergency (ER) | payer MEDICARE ==
--- OUTSIDE RECORDS SUMMARY | 2023-04-12 10:57 | EXTERNAL MEDICAL SUMMARY RPT | Continuity of Care Document ---
Author Name Unknown Address [address] [place] [address] Phone Organization [place] Address [address] [place] [address] Phone Problems date description facility 2023-01-19 14:43 Alcohol use, unspeci fied with withdrawal, unspecified [facility]
[2023-04-12] MEDS ORDERED: IPRATROPIUM/ALBUTEROL 3 ML NEB INH STA (11:12)
--- NOTE | 2023-04-12 11:12 | ED Physician Documentation ---
PD HPI DYSPNEA - Stated complaint Stated Complaint: CHEST PX,SOA - Chief complaint Chief Complaint: Resp - History obtained from History obtained from: Patient - Additional information Additional information: 78-year-old gentleman has had "chronic problems with my lungs since the 70s." He is been sick for several months now with cough productive of greenish sputum and shortness of breath and wheezing. He uses a Xopenex inhaler at home. He was here couple weeks ago and received steroids and doxycycline. States he did not improve much, and states that Augmentin works better for him. Would also like to have a CAT scan of his chest today. States he had a CAT scan before that "showed something." Review of the chart shows he did have a CTA of the chest in July 2019 with clear lungs. He denies fevers. States that all the coughing has made his back hurt. Requested something for pain. Discussed with him ", as I have in the past that since he is in pain management, and has exhibited drug-seeking behavior in the past, narcotics would not be forthcoming. I also queried if he is still getting pain medication regularly from his doctor and he states that yes Dr. Lim's prescribing him "just Tylenol," I corrected him with the query "with codeine?" and he is getting Tylenol with codeine. PD PAST MEDICAL HISTORY - Past Medical History Past Medical History: Yes Cardiovascular: Hypertension, Coronary artery disease, [place], Atrial fibrillation, Murmur, Other Respiratory: Asthma, COPD Neuro: Headaches Endocrine/Autoimmune: Type 2 diabetes GI: GERD, Hiatal hernia, Diverticulitis : Benign prostate hypertrophy, Nocturia HEENT: Chronic sinusitis, Chronic hearing loss Psych: Depression, Anxiety, Claustrophobia Musculoskeletal: Osteoarthritis, Chronic back pain, Other Derm: Herpes zoster, Other - Past Surgical History Past Surgical History: Yes General: Cholecystectomy, EGD Ortho: Hip replacement, Knee replacement, Arthroscopic surgery, Other Cardiovascular: CABG, Other HEENT: Other - Present Medications Home Medications: Ambulatory Orders Medication Instructions Recorded Confirmed Levalbuterol Tartrate [Xopenex Hfa] 2 puffs INH Q4H PRN 06/21/17 04/12/23 traZODone [Desyrel] 400 mg PO QPM 06/21/17 04/12/23 Metoprolol Tartrate 50 mg PO DAILY 08/01/17 04/12/23 Acetaminophen/Cod 300/30 [Tylenol 1 each PO Q6H PRN #20 tablet 09/28/19 04/12/23 #3] Furosemide 20 mg PO DAILY PRN 07/13/20 04/12/23 Omeprazole 20 mg PO DAILY 07/13/20 04/12/23 glipiZIDE [Glipizide ER] 2.5 mg PO DAILY 04/27/22 04/12/23 Isosorbide Mononitrate 10 mg PO DAILY 09/13/22 04/12/23 Brimonidine 0.2% Ophth Drops 75 drops EACHEYE BID 12/25/22 04/12/23 [Alphagan P 0.2% Ophth Drops] Latanoprost/Pf [Latanoprost 0.005% 7.5 ml OP HS 12/25/22 04/12/23 Eye Drop] Lisinopril [Zestril] 40 mg PO DAILY 12/25/22 04/12/23 Amox/Clav 875/125 [Augmentin] 1 each PO Q12H #20 tablet 04/12/23 Levalbuterol [Xopenex] 1.25 mg INH Q8H PRN #30 ea 04/12/23 dexAMETHasone [Decadron] 4 mg PO BIDWM #14 tablet 04/12/23 - Allergies Allergies/Adverse Reactions: Allergies Allergy/AdvReac Type Severity Reaction Status Date / Time pantoprazole sodium * Allergy Intermediate Nausea Verified 04/02/23 08:10 [From Protonix] Oidrsbu-KNK-KoK Reductase Allergy Intermediate Unknown Verified 04/02/23 08:10 Inhibitor [Wmzlmoa-Nzk-Bks Reductase Inhibitor] Sulfa (Sulfonamide Allergy Intermediate Rash Verified 04/02/23 08:10 Antibiotics) latex Allergy Mild Itching Verified 04/02/23 08:10 albuterol AdvReac Severe heart Verified 04/02/23 08:10 palpatation diazepam [From Valium] AdvReac Severe DELIRIUM Verified 04/02/23 08:10 hydrocodone [From [place]] AdvReac Anxiety Verified 04/02/23 08:10 morphine AdvReac Anxiety Verified 04/02/23 08:10 - Social History Does the pt smoke?: No Smoking Status: Never smoker Does the pt drink ETOH?: No Does the pt have substance abuse?: No - Immunizations Immunizations are current?: Yes - POLST Patient has POLST: No POLST Status: Full Code PD ED PE NORMAL - Vitals Vital signs reviewed: Yes - General General: Alert and oriented X 3, No acute distress - Cardiac Cardiac: RRR, No murmur - Respiratory Respiratory: Other (Frequent bronchitic coughing, rhonchorous throughout with expiratory wheezing, nonlabored) - Extremities Extremities: No edema - Neuro Neuro: Alert and oriented X 3 Results - Vitals Vitals: Vital Signs - 24 hr 04/12/23 04/12/23 04/12/23 10:33 10:50 11:27 Temperature 36.9 C Heart Rate 92 97 110 H Respiratory 18 18 26 H Rate Blood Pressure 153/83 H 119/79 O2 Saturation 92 94 Oxygen O2 Source [] Room air O2 Source Room air - EKG (time done) 1041 EKG releavant findings:: EKG personally interpreted by author of this note. Relevant findings are: Rate: Rate (enter#) (93) Rhythm: NSR (With PVCs), LAE [place]: RAD Intervals: Normal MI, Prolonged QT (487 qtc) Ischemia: No: ST elevation c/w ischemia, ST depression PD Medical Decision Making - ED course ED course: On arrival he specifically requested a CAT scan which given how long he has been sick, would not be unreasonable, but not emergent. Subsequently he got tired of the weight and requested his Augmentin and steroids. Departure - Departure Disposition: 01 Home, Self Care Clinical Impression: Bronchitis, acute Qualifiers: Bronchitis organism: unspecified organism Qualified Code(s): J20.9 - Acute bronchitis, unspecified Condition: Good Record reviewed to determine appropriate education?: Yes Instructions: ED Bronchitis Asthmatic Prescriptions: Amox/Clav 875/125 [Augmentin] 1 each PO Q12H #20 tablet dexAMETHasone [Decadron] 4 mg PO BIDWM #14 tablet Levalbuterol [Xopenex] 1.25 mg INH Q8H PRN #30 ea PRN Reason: Wheezing Comments: You were seen today for an apparent exacerbation of chronic bronchitis. I did order a CAT scan but you wanted to leave prior to its completion, you can follow-up with your doctor if you would like it done. You should follow-up with your doctor regardless. Return if worse. Forms: PCP List
[2023-04-12 12:49] VITALS: BP 120/80; O2SAT 96
== END 2023-04-12 12:39 | disposition home or self-care (01) ==
LOC: ED 10:28
DX: J02.9 Acute pharyngitis, unspecified (principal)
CPT/HCPCS: 93005; 94640; 99284

== ENCOUNTER 2023-04-16 12:42 | Outpatient (CLI) | payer MEDICARE ==
[2023-04-16 13:23] LABS: CREATININE 0.8 mg/dL (0.6-1.3)
[2023-04-16] MEDS ORDERED: IOVERSOL 320 100 ML VIAL IVP ONE (18:22)
--- NOTE | 2023-04-16 21:39 | CT Report ---
PROCEDURE: CT chest with contrast INDICATIONS: DYSPNEA CONTRAST: 100mL Omni 300 TECHNIQUE: After the administration of intravenous contrast, 1 mm axial images were acquired from the pulmonary apices through the posterior costophrenic angles. Axial 5 mm soft tissue kernel reconstructions were performed as well as 8 mm axial MIP and coronal and sagittal 5 mm reformations. For radiation dose reduction, the following was used: automated exposure control, adjustment of mA and/or kV according to patient size. COMPARISON: 07/19/2019 FINDINGS: Image quality: Excellent. Lungs and pleura: No consolidation. No pleural effusions. No pneumothorax. No suspicious pulmonary n odules which require follow up. Mediastinum: Heart size is normal. No pericardial effusion. No large vessel abnormality. No mediastin al adenopathy by size criteria. Coronary artery bypass graft noted Chest wall and lower neck: Thyroid is unremarkable. No axillary or supraclavicular adenopathy by size . Bones: No aggressive osseous abnormality. Sternotomy wires. Upper Abdomen: Hepatic parenchyma is diffusely decreased in attenuation without focal mass lesion. IMPRESSION: No acute CT findings in the chest. Lungs are clear. Reviewed by: Lexx Charles MD on 04/16/2023 8:38 PM AKDT Approved by: Lexx Charles MD on 04/16/2023 8:38 PM AKDT Station ID: [id number]
== END 2023-04-16 12:43 | disposition home or self-care (01) ==
LOC: DI 12:42
PROVIDERS: ATTEND Internal Medicine
DX: R06.00 Dyspnea, unspecified (principal); Z79.899 Other long term (current) drug therapy
CPT/HCPCS: 36415; 71260; 82565; Q9967

== ENCOUNTER 2023-05-10 13:46 | Outpatient (CLI) | payer MEDICARE ==
--- NOTE | 2023-05-10 16:09 | XRAY Report ---
PROCEDURE: Ankle 3 View LT INDICATIONS: PAIN IN ANKLE/PAIN IN FOOT TECHNIQUE: 3 views of the ankle were acquired. COMPARISON: None. FINDINGS: Bones: No fractures or dislocations. Ankle mortise is normally aligned. No suspicious bony lesions . Small calcaneal bone spur. Mild tibiotalar joint osteoarthritis. Soft tissues: No tibiotalar joint effusion. Achilles tendon appears normal. IMPRESSION: No fracture. No acute osseous lesion. If symptoms and/or clinical concern for pathology persists, fur ther assessment with repeat plain film radiographs (7-10 days) or advanced imaging (CT, MR, bone scan ) should be considered. Reviewed by: Kat Dorantes MD, PhD on 05/10/2023 4:08 PM PDT Approved by: Kat Dorantes MD, PhD on 05/10/2023 4:08 PM PDT Station ID: [id number]
--- NOTE | 2023-05-10 16:10 | XRAY Report ---
PROCEDURE: Foot 3 View LT INDICATIONS: PAIN IN ANKLE/PAIN IN FOOT TECHNIQUE: 3 views of the foot were acquired. COMPARISON: None. FINDINGS: Bones: No fractures or dislocations. No suspicious bony lesions. Mild hallux valgus deformity. Smal l plantar calcaneal bone spur. Soft tissues: No suspicious soft tissue calcifications or masses. IMPRESSION: No fracture. No acute osseous lesion. If symptoms and/or clinical concern for pathology persists, fur ther assessment with repeat plain film radiographs (7-10 days) or advanced imaging (CT, MR, bone scan ) should be considered. Reviewed by: Kat Dorantes MD, PhD on 05/10/2023 4:09 PM PDT Approved by: Kat Dorantes MD, PhD on 05/10/2023 4:09 PM PDT Station ID: [id number]
== END 2023-05-10 13:47 | disposition home or self-care (01) ==
LOC: DI 13:46
PROVIDERS: ATTEND Internal Medicine
DX: M79.672 Pain in left foot (principal); M25.572 Pain in left ankle and joints of left foot

== ENCOUNTER 2023-05-23 10:12 | Emergency (ER) | payer MEDICARE ==
[2023-05-23] MEDS ORDERED: oxyCODONE 5 MG TABLET PO STA (12:32)
[2023-05-23 12:34] VITALS: BP 158/75; O2SAT 97
--- NOTE | 2023-05-23 12:35 | ED Physician Documentation ---
History of Present Illness - Stated complaint Stated Complaint: LOWER BACK WOUND - Chief complaint Chief Complaint: Wound - Additonal information Additional information: she is PERC that she is probably to be able to go home 78-year-old male comes to the emergency department requesting evaluation of a left buttock wound sustained several weeks ago when he slipped on the stairs due to his dog. He sustained a very deep full-thickness abrasion. Was seen in late April by my colleague for this and at that time found to have good granulating tissue. He is continuing to apply antibiotic ointment to the wounds but feels they are not healing as quickly as he would like and they are painful. He felt his PCP was dismissive of his concerns when he spoke to her about them Review of Systems Constitutional: denies: Fever, Chills Skin: reports: Abrasion (s). denies: Rash Musculoskeletal: reports: Reviewed and negative Neurologic: reports: Reviewed and negative PD PAST MEDICAL HISTORY - Past Medical History Cardiovascular: Hypertension, Coronary artery disease, [place], Atrial fibrillation, Murmur, Other Respiratory: Asthma, COPD Neuro: Headaches Endocrine/Autoimmune: Type 2 diabetes GI: GERD, Hiatal hernia, Diverticulitis : Benign prostate hypertrophy, Nocturia HEENT: Chronic sinusitis, Chronic hearing loss Psych: Depression, Anxiety, Claustrophobia Musculoskeletal: Osteoarthritis, Chronic back pain, Other Derm: Herpes zoster, Other - Past Surgical History Past Surgical History: Yes General: Cholecystectomy, EGD Ortho: Hip replacement, Knee replacement, Arthroscopic surgery, Other Cardiovascular: CABG, Other HEENT: Other - Present Medications Home Medications: Ambulatory Orders Medication Instructions Recorded Confirmed Levalbuterol Tartrate [Xopenex Hfa] 2 puffs INH Q4H PRN 06/21/17 04/12/23 traZODone [Desyrel] 400 mg PO QPM 06/21/17 04/12/23 Metoprolol Tartrate 50 mg PO DAILY 08/01/17 04/12/23 Acetaminophen/Cod 300/30 [Tylenol 1 each PO Q6H PRN #20 tablet 09/28/19 04/12/23 #3] Furosemide 20 mg PO DAILY PRN 07/13/20 04/12/23 Omeprazole 20 mg PO DAILY 07/13/20 04/12/23 glipiZIDE [Glipizide ER] 2.5 mg PO DAILY 04/27/22 04/12/23 Isosorbide Mononitrate 10 mg PO DAILY 09/13/22 04/12/23 Brimonidine 0.2% Ophth Drops 75 drops EACHEYE BID 12/25/22 04/12/23 [Alphagan P 0.2% Ophth Drops] Latanoprost/Pf [Latanoprost 0.005% 7.5 ml OP HS 12/25/22 04/12/23 Eye Drop] Lisinopril [Zestril] 40 mg PO DAILY 12/25/22 04/12/23 Amox/Clav 875/125 [Augmentin] 1 each PO Q12H #20 tablet 04/12/23 Levalbuterol [Xopenex] 1.25 mg INH Q8H PRN #30 ea 04/12/23 dexAMETHasone [Decadron] 4 mg PO BIDWM #14 tablet 04/12/23 traMADol [Ultram] 50 mg PO Q8H PRN #9 tablet 04/29/23 - Allergies Allergies/Adverse Reactions: Allergies Allergy/AdvReac Type Severity Reaction Status Date / Time pantoprazole sodium * Allergy Intermediate Nausea Verified 04/29/23 08:47 [From Protonix] Uwdhtiy-IAG-VdP Reductase Allergy Intermediate Unknown Verified 04/29/23 08:47 Inhibitor [Vfymemq-Qrs-Jxy Reductase Inhibitor] Sulfa (Sulfonamide Allergy Intermediate Rash Verified 04/29/23 08:47 Antibiotics) latex Allergy Mild Itching Verified 04/29/23 08:47 albuterol AdvReac Severe heart Verified 04/29/23 08:47 palpatation diazepam [From Valium] AdvReac Severe DELIRIUM Verified 04/29/23 08:47 hydrocodone [From [place]] AdvReac Anxiety Verified 04/29/23 08:47 morphine AdvReac Anxiety Verified 04/29/23 08:47 - Social History Does the pt smoke?: No Smoking Status: Never smoker Does the pt drink ETOH?: No Does the pt have substance abuse?: No - Immunizations Immunizations are current?: Yes - POLST Patient has POLST: No POLST Status: Full Code PD ED PE NORMAL - General General: Alert and oriented X 3, No acute distress - Derm Derm: Other (4 cm abrasion noted on the left upper buttock. No surrounding erythema. The overall appearance of it is carmen and scabbing. No fluctuance or drainage was noted.) Results - Vitals Vitals: Vital Signs - 24 hr 05/23/23 05/23/23 10:26 12:25 Temperature 37.2 C Heart Rate 94 104 H Respiratory 16 22 Rate Blood Pressure 149/88 H 158/75 H O2 Saturation 99 97 Oxygen O2 Source [With Activity] Room air O2 Source Room air PD Medical Decision Making - ED course Complexity details: d/w patient ED course: 78-year-old male presents to the emergency department for concerns of a nonhealing left buttock wound. Seen by my colleague for similar several weeks ago. Her description of the wound is that of having granulation tissue. I believe the wound has progressed in time and appears to now be healing normally as it no longer appears full-thickness and there is some scabbing and 10 tissue present on the wound such as a moderate abrasion. No surrounding erythema or drainage or fluctuance to signify surrounding cellulitis or infection. I discussed with patient that given his age these types of wounds will take several weeks or even a few months to fully heal. He is frustrated with his progress. I recommended he follow closely with his PCP in order to obtain referral to wound therapy. Otherwise he is recommended to continue applying antibiotic ointment 2 or 3 times daily at home Departure - Departure Disposition: 01 Home, Self Care Clinical Impression: Wound of left buttock Qualifiers: Encounter type: initial encounter Qualified Code(s): S31.829A - Unspecified open wound of left buttock, initial encounter Condition: Stable Record reviewed to determine appropriate education?: Yes Follow-Up: Kimmy Lim MD [Provider Admit Priv/Credential] - Comments: Dominic the wound on your left buttock appears to be healing. There is some scabbing over the wound that appears normal for this stage of injury. However it is taking much longer than you would like to heal. I would like you to continue placing the antibiotic ointment over the wound 2 or 3 times daily for the foreseeable future. Offloading pressure from the wound will help it heal so what ever you can do to not sit or lay on it will be helpful. Encourage you to discuss your concerns with Dr. Lim as she can make a referral for you to wound therapy. The wound therapy providers have products not available to the emergency department to help in the management of wound such as this.
== END 2023-05-23 12:45 | disposition home or self-care (01) ==
LOC: ED 10:12
DX: S31.829A Unspecified open wound of left buttock, initial encounter (principal); X58.XXXA Exposure to other specified factors, initial encounter; I10 Essential (primary) hypertension; I48.91 Unspecified atrial fibrillation; J44.89 Other specified chronic obstructive pulmonary disease; E11.9 Type 2 diabetes mellitus without complications; Z79.899 Other long term (current) drug therapy; Z79.84 Long term (current) use of oral hypoglycemic drugs
CPT/HCPCS: 99282; 99283; A9270

== ENCOUNTER 2023-05-29 07:52 | Emergency (ER) | payer MEDICARE ==
[2023-05-29 08:14] VITALS: BP 169/114
[2023-05-29] MEDS ORDERED: IPRATROPIUM/ALBUTEROL 3 ML NEB INH STA (08:30)
[2023-05-29] MEDS ORDERED: DEXAMETHASONE 10 MG/ML VIAL IM STA (08:30)
--- NOTE | 2023-05-29 08:34 | ED Physician Documentation ---
PD HPI DYSPNEA - Stated complaint Stated Complaint: SOA - Chief complaint Chief Complaint: Resp - History obtained from History obtained from: Patient - Additional information Additional information: The patient comes to the emergency department with chief complaint of shortness of breath and wheezing after running out of his Nebules and albuterol inhaler a couple of days ago. He has a history of COPD for which she is not oxygen dependent but does use his nebulizers and inhalers every day. He states he has felt tight and wheezy. He is also had a cough for the last couple of days with a mild amount of white sputum. No fevers or chills. Who states all the coughing is making his neck spasm up and he has run out of his muscle relaxers as well. PD PAST MEDICAL HISTORY - Past Medical History Cardiovascular: Hypertension, Coronary artery disease, [place], Atrial fibrillation, Murmur, Other Respiratory: Asthma, COPD Neuro: Headaches Endocrine/Autoimmune: Type 2 diabetes GI: GERD, Hiatal hernia, Diverticulitis : Benign prostate hypertrophy, Nocturia HEENT: Chronic sinusitis, Chronic hearing loss Psych: Depression, Anxiety, Claustrophobia Musculoskeletal: Osteoarthritis, Chronic back pain, Other Derm: Herpes zoster, Other - Past Surgical History Past Surgical History: Yes General: Cholecystectomy, EGD Ortho: Hip replacement, Knee replacement, Arthroscopic surgery, Other Cardiovascular: CABG, Other HEENT: Other - Present Medications Home Medications: Ambulatory Orders Medication Instructions Recorded Confirmed Levalbuterol Tartrate [Xopenex Hfa] 2 puffs INH Q4H PRN 06/21/17 05/29/23 traZODone [Desyrel] 400 mg PO QPM 06/21/17 05/29/23 Metoprolol Tartrate 50 mg PO DAILY 08/01/17 05/29/23 Acetaminophen/Cod 300/30 [Tylenol 1 each PO Q6H PRN #20 tablet 09/28/19 05/29/23 #3] Furosemide 20 mg PO DAILY PRN 07/13/20 05/29/23 Omeprazole 20 mg PO DAILY 07/13/20 05/29/23 glipiZIDE [Glipizide ER] 2.5 mg PO DAILY 04/27/22 05/29/23 Isosorbide Mononitrate 10 mg PO DAILY 09/13/22 05/29/23 Brimonidine 0.2% Ophth Drops 75 drops EACHEYE BID 12/25/22 05/29/23 [Alphagan P 0.2% Ophth Drops] Latanoprost/Pf [Latanoprost 0.005% 7.5 ml OP HS 12/25/22 05/29/23 Eye Drop] Lisinopril [Zestril] 40 mg PO DAILY 12/25/22 05/29/23 Levalbuterol [Xopenex] 1.25 mg INH Q8H PRN #30 ea 04/12/23 05/29/23 Albuterol 2.5 mg INH Q4H PRN #60 ml 05/29/23 Albuterol Sulf [Ventolin Hfa 1 - 2 puffs INH Q4HR PRN #18 gm 05/29/23 Inhaler] - Allergies Allergies/Adverse Reactions: Allergies Allergy/AdvReac Type Severity Reaction Status Date / Time pantoprazole sodium * Allergy Intermediate Nausea Verified 05/29/23 08:09 [From Protonix] Tczspgu-PXJ-JtT Reductase Allergy Intermediate Unknown Verified 05/29/23 08:09 Inhibitor [Bwztxnk-Iqd-Cin Reductase Inhibitor] Sulfa (Sulfonamide Allergy Intermediate Rash Verified 05/29/23 08:09 Antibiotics) latex Allergy Mild Itching Verified 05/29/23 08:09 albuterol AdvReac Severe heart Verified 05/29/23 08:09 palpatation diazepam [From Valium] AdvReac Severe DELIRIUM Verified 05/29/23 08:09 hydrocodone [From [place]] AdvReac Anxiety Verified 05/29/23 08:09 morphine AdvReac Anxiety Verified 05/29/23 08:09 - Social History Does the pt smoke?: No Smoking Status: Never smoker Does the pt drink ETOH?: No Does the pt have substance abuse?: No - Immunizations Immunizations are current?: Yes - POLST Patient has POLST: No POLST Status: Full Code PD ED PE NORMAL - Vitals Vital signs reviewed: Yes - General General: Alert and oriented X 3, No acute distress, Well developed/nourished - HEENT HEENT: Atraumatic, PERRL, EOMI, Moist mucous membranes - Neck Neck: Supple, no meningeal sign, Other (Muscle knot in right posterior neck musculature with some tenderness to palpation.) - Cardiac Cardiac: RRR, No murmur - Respiratory Respiratory: Other (The patient is not in any distress and easily speaks in full sentences but his breathing is labored and he has tight breath sounds with moderately decreased air movement bilaterally and expiratory wheezes.) - Abdomen Abdomen: Soft, Non tender, Non distended - Derm Derm: Normal color, Warm and dry, No rash - Extremities Extremities: No deformity - Neuro Neuro: Alert and oriented X 3 - Psych Psych: Normal mood, Normal affect Results - Vitals Vitals: Vital Signs - 24 hr 05/29/23 05/29/23 05/29/23 08:06 08:45 08:46 Temperature 35.7 C L Heart Rate 76 79 80 Respiratory 14 17 20 Rate Blood Pressure 169/114 H O2 Saturation 95 96 Oxygen O2 Source [With Activity] Room air O2 Source Room air PD Medical Decision Making - ED course Complexity details: reviewed results, re-evaluated patient, considered differential, d/w patient ED course: The patient was worked up with a chest x-ray and treated symptomatically with a DuoNeb and Decadron. His oxygen saturation was 95 to 97% on room air during my exam and patient was afebrile with a clear chest x-ray. I did not feel that he needed antibiotics at this time. Departure - Departure Disposition: 01 Home, Self Care Clinical Impression: COPD exacerbation Condition: Stable Instructions: COPD Dc Prescriptions: Albuterol Sulf [Ventolin Hfa Inhaler] 1 - 2 puffs INH Q4HR PRN #18 gm PRN Reason: Shortness Of Air/Wheezing Albuterol 2.5 mg INH Q4H PRN #60 ml PRN Reason: Wheezing Forms: PCP List
--- NOTE | 2023-05-29 08:45 | XRAY Report ---
PROCEDURE: Chest 1 View X-Ray INDICATIONS: chest pain TECHNIQUE: One view of the chest was acquired. COMPARISON: 04/02/2023. FINDINGS: Surgical changes and devices: Median sternotomy wires are seen. Lungs and pleura: No pleural effusions or pneumothorax. Lungs are clear. Mediastinum: Mediastinal contours appear normal. Heart size is normal. Bones and chest wall: No suspicious bony lesions. Overlying soft tissues appear unremarkable. IMPRESSION: No acute cardiopulmonary process. Reviewed by: Satish Jarrett MD on 05/29/2023 8:44 AM PDT Approved by: Satish Jarrett MD on 05/29/2023 8:44 AM PDT Station ID: [id number]
[2023-05-29 08:50] VITALS: O2SAT 96
== END 2023-05-29 09:24 | disposition home or self-care (01) ==
LOC: ED 07:52
DX: J44.1 Chronic obstructive pulmonary disease with (acute) exacerbation (principal); I10 Essential (primary) hypertension; I48.91 Unspecified atrial fibrillation; E11.9 Type 2 diabetes mellitus without complications; I25.2 Old myocardial infarction; Z79.899 Other long term (current) drug therapy; Z79.84 Long term (current) use of oral hypoglycemic drugs
CPT/HCPCS: 94640; 94664; 96372; 99283; 99284

== ENCOUNTER 2023-06-28 11:52 | Emergency (ER) | payer MEDICARE ==
[2023-06-28 12:09] VITALS: BP 183/89; O2SAT 93
--- NOTE | 2023-06-28 12:14 | ED Physician Documentation ---
PD HPI HEAD INJURY - Stated complaint Stated Complaint: RT SHOULDER/NECK PX - Chief complaint Chief Complaint: Trauma Ext - History obtained from History obtained from: Patient - History of Present Illness Mechanism of head injury: Fell Timing - onset: How many weeks ago (1) Location of injury: Right (side of head and lateral neck along with right shou lder. he states he lost balance and fell to right. Having increased neck pain over baseline, and right sided headache. Head pain feels like prior migraines. right shoulder pain on ROM, but particularly at distal clavicle area.) Quality of pain: Pain, Throbbing Associated symptoms: Neck pain. No: LOC, AMS Symptoms worsen with: Movement Contributing factors: No: Anticoagulated, Intoxicated Similar symptoms before: Diagnosis (headache component he says feels like migraines, but has not had one recntly.) Recently seen: Clinic (he talked wtih PCP and has outpt CT neck ordered stat. Was at wound care clinic today and came to ER after due to head/neck pain being intolerable. 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.) Review of Systems Constitutional: denies: Fever Musculoskeletal: reports: Neck pain, Back pain Neurologic: denies: Focal weakness, Numbness, Near syncope PD PAST MEDICAL HISTORY - Past Medical History Past Medical History: Yes Cardiovascular: Hypertension, Coronary artery disease, [place], Atrial fibrillation, Murmur, Other Respiratory: Asthma, COPD Neuro: Headaches Endocrine/Autoimmune: Type 2 diabetes GI: GERD, Hiatal hernia, Diverticulitis : Benign prostate hypertrophy, Nocturia HEENT: Chronic sinusitis, Chronic hearing loss Psych: Depression, Anxiety, Claustrophobia Musculoskeletal: Osteoarthritis, Chronic back pain, Other Derm: Herpes zoster, Other - Past Surgical History Past Surgical History: Yes General: Cholecystectomy, EGD Ortho: Hip replacement, Knee replacement, Arthroscopic surgery, Other Cardiovascular: CABG, Other HEENT: Other - Present Medications Home Medications: Ambulatory Orders Medication Instructions Recorded Confirmed Levalbuterol Tartrate [Xopenex Hfa] 2 puffs INH Q4H PRN 06/21/17 05/29/23 traZODone [Desyrel] 400 mg PO QPM 06/21/17 05/29/23 Metoprolol Tartrate 50 mg PO DAILY 08/01/17 05/29/23 Acetaminophen/Cod 300/30 [Tylenol 1 each PO Q6H PRN #20 tablet 09/28/19 05/29/23 #3] Furosemide 20 mg PO DAILY PRN 07/13/20 05/29/23 Omeprazole 20 mg PO DAILY 07/13/20 05/29/23 glipiZIDE [Glipizide ER] 2.5 mg PO DAILY 04/27/22 05/29/23 Isosorbide Mononitrate 10 mg PO DAILY 09/13/22 05/29/23 Brimonidine 0.2% Ophth Drops 75 drops EACHEYE BID 12/25/22 05/29/23 [Alphagan P 0.2% Ophth Drops] Latanoprost/Pf [Latanoprost 0.005% 7.5 ml OP HS 12/25/22 05/29/23 Eye Drop] Lisinopril [Zestril] 40 mg PO DAILY 12/25/22 05/29/23 Levalbuterol [Xopenex] 1.25 mg INH Q8H PRN #30 ea 04/12/23 05/29/23 Albuterol 2.5 mg INH Q4H PRN #60 ml 05/29/23 Albuterol Sulf [Ventolin Hfa 1 - 2 puffs INH Q4HR PRN #18 gm 05/29/23 Inhaler] Cyclobenzaprine [Flexeril] 10 mg PO TID PRN #20 tablet 05/29/23 predniSONE [Deltasone] 60 mg PO DAILY 5 Days #15 tablet 05/29/23 Prochlorperazine Maleate 10 mg PO Q6H PRN #15 tablet 06/28/23 [Compazine] Sumatriptan Succinate [Imitrex] 50 mg PO Q6H PRN #10 tablet 06/28/23 - Allergies Allergies/Adverse Reactions: Allergies Allergy/AdvReac Type Severity Reaction Status Date / Time pantoprazole sodium * Allergy Intermediate Nausea Verified 06/28/23 12:08 [From Protonix] Wfuujjy-JUO-RuS Reductase Allergy Intermediate Unknown Verified 06/28/23 12:08 Inhibitor [Ergizrb-Bat-Jmv Reductase Inhibitor] Sulfa (Sulfonamide Allergy Intermediate Rash Verified 06/28/23 12:08 Antibiotics) latex Allergy Mild Itching Verified 06/28/23 12:08 albuterol AdvReac Severe heart Verified 06/28/23 12:08 palpatation diazepam [From Valium] AdvReac Severe DELIRIUM Verified 06/28/23 12:08 hydrocodone [From [place]] AdvReac Anxiety Verified 06/28/23 12:08 morphine AdvReac Anxiety Verified 06/28/23 12:08 - Social History Does the pt smoke?: No Smoking Status: Never smoker Does the pt drink ETOH?: No Does the pt have substance abuse?: No - Immunizations Immunizations are current?: Yes - POLST Patient has POLST: No POLST Status: Full Code PD ED PE NORMAL - Vitals Vital signs reviewed: Yes - General General: Alert and oriented X 3, Well developed/nourished, Other (appears distre ssed and in pain from headache. ) Results - Vitals Vitals: Vital Signs - 24 hr 06/28/23 12:01 Temperature 36.4 C L Heart Rate 89 Respiratory 18 Rate Blood Pressure 183/89 H O2 Saturation 93 Oxygen O2 Source [With Activity] Room air O2 Source Room air - Rads (name of study) shoulder xray Relevant Findings:: Prelim report reviewed (arthritic changes, no fractures) head/neck CT Relevant Findings:: EMP independent interpretation of test (ordered but pt wanted to head home without them right now and will get ones ordered outpt.) PD Medical Decision Making - ED course Complexity details: re-evaluated patient (headache reasonably improved and much less distressed after Toradol, Tylenol#3 (I gave what he has been given by his PMD), then further improved with headache after Imitrex subcut and COmpazine PO, c/w migraine type headache. He then was feeling improved and wished to get CT outpt.), considered differential, d/w patient Departure - Departure Disposition: 01 Home, Self Care Clinical Impression: Migraine, Neck pain, History of recent fall Condition: Stable Record reviewed to determine appropriate education?: Yes Instructions: ED Cephalgia Unspecified, ED Neck Back Pain General Follow-Up: Kimmy Lim MD [Primary Care Provider] - Prescriptions: Prochlorperazine Maleate [Compazine] 10 mg PO Q6H PRN #15 tablet PRN Reason: Nausea / Vomiting Sumatriptan Succinate [Imitrex] 50 mg PO Q6H PRN #10 tablet PRN Reason: Migraine Comments: Continue with usual medications at home. 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 You were given a dose of Imitrex for your migraine type headache here as well as some Toradol. Follow-up with the outpatient CT scan of your neck as ordered by your primary care. We had ordered the head and neck CT scans here but understand you would like to at home at this time. I did prescribe some Imitrex/sumatriptan to also be at your pharmacy for recurrent migraines if get them in the near future. Nausea medicine if needed. Forms: PCP List Discharge Date/Time: 06/28/23 14:01
[2023-06-28] MEDS ORDERED: ACETAMINOPHEN/CODEINE 300 MG/30 MG TABLET PO STA (12:41)
[2023-06-28] MEDS ORDERED: BACLOFEN 10 MG TABLET PO STA (12:41)
[2023-06-28] MEDS ORDERED: KETOROLAC 30 MG/ML VIAL IM STA (12:41)
--- NOTE | 2023-06-28 13:20 | XRAY Report ---
PROCEDURE: Shoulder 3 View RT INDICATIONS: fall onto shoulder, pain ROM TECHNIQUE: 3 views of the shoulder were acquired. COMPARISON: None FINDINGS: Bones: No fractures or dislocations. No suspicious bony lesions. Visualized ribs appear intact. A dvanced glenohumeral and AC joint space narrowing with subchondral sclerosis and anterior osteophyte Soft tissues: No suspicious soft tissue calcifications. IMPRESSION: Advanced arthritic changes. No fracture. Reviewed by: Lexx Charles MD on 06/28/2023 12:18 PM [facility] Approved by: Lexx Charles MD on 06/28/2023 12:18 PM [place] Station ID: [id number]
[2023-06-28] MEDS ORDERED: PROCHLORPERAZINE 5 MG TABLET PO STA (13:28)
[2023-06-28] MEDS ORDERED: SUMAtriptan 6 MG/0.5 ML VIAL SUBQ STA (13:28)
== END 2023-06-28 14:01 | disposition home or self-care (01) ==
LOC: ED 11:52
DX: G43.909 Migraine, unspecified, not intractable, without status migrainosus (principal); M54.2 Cervicalgia; W19.XXXA Unspecified fall, initial encounter; I10 Essential (primary) hypertension; I48.91 Unspecified atrial fibrillation; E11.9 Type 2 diabetes mellitus without complications; Z79.84 Long term (current) use of oral hypoglycemic drugs
CPT/HCPCS: 96372; 99283

== ENCOUNTER 2023-06-29 09:05 | Outpatient (CLI) | payer MEDICARE ==
--- NOTE | 2023-06-29 10:04 | CT Report ---
PROCEDURE: CERVICAL SPINE WO INDICATIONS: CERVICALGIA TECHNIQUE: Noncontrast 3 mm thick sections acquired from the skull base to the T4 level. Sagittal and coronal r eformats were then constructed. For radiation dose reduction, the following was used: automated exp osure control, adjustment of mA and/or kV according to patient size. COMPARISON: None. FINDINGS: Image quality: Excellent. Bones: No fractures or dislocations. Visualized superior ribs are intact. Multilevel cervical fusio n with anterior plate and screw fixation at C4-C5 and C7-T1 with mature interbody fusion from C4 thro ugh C7. No evidence of hardware failure or loosening. There is prominent bilateral facet arthropathy at C2-C3, right greater than left, with resultant anterolisthesis of C2 on C3 measuring 4.5 mm. There is also bilateral facet arthropathy at C3-C4. There is posterior osteophyte at C4-C5 which results i n a degree of canal stenosis. Findings are similar to the previous study from 07/25/2016. There is rivka ny left foraminal narrowing at C3-C4 and C4-C5. Soft tissues: Prevertebral soft tissues are normal in thickness. No paravertebral hematomas. No ap ical pneumothoraces. IMPRESSION: 1. No acute fracture or dislocation. 2. Extensive previous cervical fusion, spanning from C4 through T1. 3. Upper cervical facet arthropathy with resultant anterolisthesis of C2 on C3 and C3 on C4. 4. Mild canal stenosis at C4-C5. There is also bony left foraminal narrowing at C3-C4 and C4-C5. Reviewed by: Tl Jaimes MD on 06/29/2023 10:03 AM [facility] Approved by: Tl Jaimes MD on 06/29/2023 10:03 AM PST Station ID: [id number]
== END 2023-06-29 09:06 | disposition home or self-care (01) ==
LOC: DI 09:05
PROVIDERS: ATTEND Internal Medicine
DX: M47.812 Spondylosis without myelopathy or radiculopathy, cervical region (principal); Z98.1 Arthrodesis status; M43.12 Spondylolisthesis, cervical region; M48.02 Spinal stenosis, cervical region

== ENCOUNTER 2023-07-01 11:01 | Outpatient (CLI) | payer MEDICARE | END 2023-07-01 11:02 | disposition critical access hospital (66) | LOC: EMS 11:01 | DX: R07.89 Other chest pain (principal) | CPT/HCPCS: A0425; A0429 ==

== ENCOUNTER 2023-07-01 11:13 | Emergency (ER) | payer MEDICARE ==
[2023-07-01] MEDS ORDERED: ASPIRIN CHEW 81 MG TABLET PO STA (12:06)
[2023-07-01] MEDS ORDERED: NITROGLYCERIN SL 0.4 MG TABLET SL STA (12:06)
[2023-07-01] MEDS ORDERED: NITROGLYCERIN 2% PASTE TOP STA (12:07)
[2023-07-01] MEDS ORDERED: fentaNYL 100 MCG/2 ML VIAL IVP STA (12:08)
--- NOTE | 2023-07-01 12:09 | ED Physician Documentation ---
History of Present Illness - Stated complaint Stated Complaint: L SIDE RIB PX - Chief complaint Chief Complaint: General - History obtained from History obtained from: Patient - Additonal information Additional information: Note made that the history I get from the patient and his is significantly different than the history obtained from review of the nursing notes. Review of the nursing notes would suggest more of a musculoskeletal etiology. For me the patient states that he has had on and off chest pain for the last month. He has history of multivessel bypass in 2006 with perioperative repaired aortic dissection. Today at rest the pain became much worse in the left chest and radiating towards the left neck. He has been having neck Pain for some time. PD PAST MEDICAL HISTORY - Past Medical History Cardiovascular: Hypertension, Coronary artery disease, [place], Atrial fibrillation, Murmur, Other Respiratory: Asthma, COPD Neuro: Headaches Endocrine/Autoimmune: Type 2 diabetes GI: GERD, Hiatal hernia, Diverticulitis : Benign prostate hypertrophy, Nocturia HEENT: Chronic sinusitis, Chronic hearing loss Psych: Depression, Anxiety, Claustrophobia Musculoskeletal: Osteoarthritis, Chronic back pain, Other Derm: Herpes zoster, Other - Past Surgical History Past Surgical History: Yes General: Cholecystectomy, EGD Ortho: Hip replacement, Knee replacement, Arthroscopic surgery, Other Cardiovascular: CABG, Other HEENT: Other - Present Medications Home Medications: Ambulatory Orders Medication Instructions Recorded Confirmed Levalbuterol Tartrate [Xopenex Hfa] 2 puffs INH Q4H PRN 06/21/17 05/29/23 traZODone [Desyrel] 400 mg PO QPM 06/21/17 05/29/23 Metoprolol Tartrate 50 mg PO DAILY 08/01/17 05/29/23 Acetaminophen/Cod 300/30 [Tylenol 1 each PO Q6H PRN #20 tablet 09/28/19 05/29/23 #3] Furosemide 20 mg PO DAILY PRN 07/13/20 05/29/23 Omeprazole 20 mg PO DAILY 07/13/20 05/29/23 glipiZIDE [Glipizide ER] 2.5 mg PO DAILY 04/27/22 05/29/23 Isosorbide Mononitrate 10 mg PO DAILY 09/13/22 05/29/23 Brimonidine 0.2% Ophth Drops 75 drops EACHEYE BID 12/25/22 05/29/23 [Alphagan P 0.2% Ophth Drops] Latanoprost/Pf [Latanoprost 0.005% 7.5 ml OP HS 12/25/22 05/29/23 Eye Drop] Lisinopril [Zestril] 40 mg PO DAILY 12/25/22 05/29/23 Levalbuterol [Xopenex] 1.25 mg INH Q8H PRN #30 ea 04/12/23 05/29/23 Albuterol 2.5 mg INH Q4H PRN #60 ml 05/29/23 Albuterol Sulf [Ventolin Hfa 1 - 2 puffs INH Q4HR PRN #18 gm 05/29/23 Inhaler] Cyclobenzaprine [Flexeril] 10 mg PO TID PRN #20 tablet 05/29/23 predniSONE [Deltasone] 60 mg PO DAILY 5 Days #15 tablet 05/29/23 Prochlorperazine Maleate 10 mg PO Q6H PRN #15 tablet 06/28/23 [Compazine] Sumatriptan Succinate [Imitrex] 50 mg PO Q6H PRN #10 tablet 06/28/23 - Allergies Allergies/Adverse Reactions: Allergies Allergy/AdvReac Type Severity Reaction Status Date / Time pantoprazole sodium * Allergy Intermediate Nausea Verified 06/28/23 12:08 [From Protonix] Lwcyzem-XZY-QoN Reductase Allergy Intermediate Unknown Verified 06/28/23 12:08 Inhibitor [Gqwqxsj-Ggl-Cqk Reductase Inhibitor] Sulfa (Sulfonamide Allergy Intermediate Rash Verified 06/28/23 12:08 Antibiotics) latex Allergy Mild Itching Verified 06/28/23 12:08 albuterol AdvReac Severe heart Verified 06/28/23 12:08 palpatation diazepam [From Valium] AdvReac Severe DELIRIUM Verified 06/28/23 12:08 hydrocodone [From [place]] AdvReac Anxiety Verified 06/28/23 12:08 morphine AdvReac Anxiety Verified 06/28/23 12:08 - Social History Does the pt smoke?: No Smoking Status: Never smoker Does the pt drink ETOH?: No Does the pt have substance abuse?: No - Immunizations Immunizations are current?: Yes - POLST Patient has POLST: No POLST Status: Full Code PD ED PE NORMAL - Vitals Vital signs reviewed: Yes - General General: Alert and oriented X 3, No acute distress - HEENT HEENT: PERRL, EOMI - Neck Neck: Supple, no meningeal sign, No bony TTP - Cardiac Cardiac: RRR (With occasional extrasystoles and a subtle systolic murmur heard best on the right side) - Respiratory Respiratory: No respiratory distress, Clear bilaterally - Abdomen Abdomen: Non tender - Extremities Extremities: No edema, No calf tenderness / cord - Neuro Neuro: Alert and oriented X 3, Normal speech Results - Vitals Vitals: Vital Signs - 24 hr 07/01/23 07/01/23 11:19 13:23 Temperature 37.1 C Heart Rate 94 90 Respiratory 18 18 Rate Blood Pressure 156/98 H 150/88 H O2 Saturation 95 96 Oxygen O2 Source [] Room air O2 Source Room air - EKG (time done) 1248 EKG releavant findings:: EKG personally interpreted by author of this note. Relevant findings are: Rate: Rate (enter#) (89) Rhythm: NSR, LAE [place]: RAD Intervals: Normal OK QRS: Normal Ischemia: Normal ST segments. No: ST elevation c/w ischemia, ST depression - Labs Labs: Laboratory Tests 07/01/23 07/01/23 12:16 12:16 WBC 8.7 RBC 4.45 L Hgb 13.6 L Hct 41.6 L MCV 93.5 MCH 30.6 MCHC 32.7 RDW 12.4 Plt Count 231 MPV 8.5 Neut # (Auto) 6.4 Lymph # (Auto) 0.9 L [place] # (Auto) 0.9 Eos # (Auto) 0.4 Baso # (Auto) 0.1 Absolute Nucleated RBC 0.00 Nucleated RBC % 0.0 Sodium 136 Potassium 4.2 Chloride 99 L Carbon Dioxide 29 Anion Gap 8.0 BUN 11 Creatinine 0.8 Estimated GFR (MDRD) 93 Glucose 120 H Calcium 9.7 Total Bilirubin 0.6 AST 20 ALT 25 Alkaline Phosphatase 69 Troponin I High Sens 10.9 Total Protein 6.7 Albumin 4.3 Globulin 2.4 Albumin/Globulin Ratio 1.8 Lipase 29 - Rads (name of study) Single view chest x-ray is unremarkable Relevant Findings:: Final report received, EMP independent interpretation of test PD Medical Decision Making - ED course ED course: 78-year-old gentleman with history of concerns for narcotic abuse but also history of [place] with CABG and aortic dissection perioperatively presents with acute chest pain. Per the nurses notes it was musculoskeletal but given his complaints a cardiac work-up and dissection study were undertaken. He was also having a bad headache and a head CT was done and negative. Work-up in the emergency department shows no sign of ischemia on EKG or troponin testing. CBC/CMP otherwise relatively unremarkable save very mild chronic normocytic anemia. Departure - Departure Disposition: 01 Home, Self Care Clinical Impression: Chest pain, History of aortic dissection Headache Qualifiers: Headache type: tension-type Headache chronicity pattern: acute headache Intractability: not intractable Qualified Code(s): G44.209 - Tension-type headache, unspecified, not intractable Condition: Good Record reviewed to determine appropriate education?: Yes Instructions: ED Chest Pain Atypical Unkn Cause, ED Headache Tension Comments: Head CT was unremarkable. No evidence of ischemic heart disease that is active. Chest CT showing no evidence of recurrent or acute dissection. Call your doctor to arrange a follow-up appointment, make the next available appointment. In the interim, return anytime if worse or if new symptoms develop. Forms: PCP List
--- NOTE | 2023-07-01 12:19 | XRAY Report ---
PROCEDURE: Chest 1 View X-Ray INDICATIONS: Chest Pain TECHNIQUE: One view of the chest was acquired. COMPARISON: 05/29/2023 FINDINGS: Surgical changes and devices: Status post median sternotomy. Lungs and pleura: No pleural effusions or pneumothorax. Lungs are clear. Mediastinum: Mediastinal contours appear normal. Heart size is normal. Bones and chest wall: No suspicious bony lesions. Overlying soft tissues appear unremarkable. IMPRESSION: No acute cardiopulmonary process. Reviewed by: Reid Martell on 07/01/2023 12:18 PM PST Approved by: Reid Martell on 07/01/2023 12:[address] [facility] Station ID: [id number]
[2023-07-01 12:22] LABS: BASOPHILS # (AUTO) 0.1 10^3/uL (0.0-0.1); BASOPHILS % (AUTO) 0.6 %; EOSINOPHILS # (AUTO) 0.4 10^3/uL (0.0-0.7); EOSINOPHILS % (AUTO) 4.1 %; HCT - HEMATOCRIT 41.6 % (42.0-52.0); HGB - HEMOGLOBIN 13.6 g/dL (14.0-18.0); LYMPHOCYTES # (AUTO) 0.9 10^3/uL (1.5-3.5); LYMPHOCYTES % (AUTO) 10.5 %; MEAN CORPUSCULAR HEMOGLOBIN 30.6 pg (27.0-31.0); MEAN CORPUSCULAR HGB CONC 32.7 g/dL (32.0-36.0); MEAN CORPUSCULAR VOLUME 93.5 fL (80.0-94.0); MEAN PLATELET VOLUME 8.5 fL (7.4-11.4); MONOCYTES # (AUTO) 0.9 10^3/uL (0.0-1.0); MONOCYTES % (AUTO) 10.3 %; NEUTROPHILS # (AUTO) 6.4 10^3/uL (1.5-6.6); PLT - PLATELET COUNT 231 10^3/uL (130-450); RED BLOOD COUNT 4.45 10^6/uL (4.70-6.10); RED CELL DISTRIBUTION WIDTH 12.4 % (12.0-15.0); WHITE BLOOD COUNT 8.7 x10^3/uL (4.8-10.8)
[2023-07-01 12:38] LABS: ALBUMIN 4.3 g/dL (3.2-5.5); ALBUMIN/GLOBULIN RATIO 1.8 (1.0-2.2); BILIRUBIN,TOTAL 0.6 mg/dL (0.2-1.0); CALCIUM 9.7 mg/dL (8.5-10.3); CREATININE 0.8 mg/dL (0.6-1.3); POTASSIUM 4.2 mmol/L (3.5-4.5); TOTAL PROTEIN 6.7 g/dL (6.4-8.9)
[2023-07-01 12:45] LABS: TROPONIN I HIGH SENSITIVITY 10.9 ng/L (2.3-19.7)
[2023-07-01 14:12] VITALS: BP 150/88; O2SAT 96
--- NOTE | 2023-07-01 14:23 | CT Report ---
PROCEDURE: HEAD WO INDICATIONS: headache TECHNIQUE: Noncontrast 4.5 mm thick angled axial sections acquired from the foramen magnum to the vertex. For r adiation dose reduction, the following was used: automated exposure control, adjustment of mA and/or kV according to patient size. COMPARISON: None. FINDINGS: Image quality: Excellent. CSF spaces: Basal cisterns are patent. No extra-axial fluid collections. Ventricles are normal in size and shape. Brain: No midline shift. No intracranial masses or hemorrhage. Diaz-white matter interface is norm al. Skull and face: Calvarium and visualized facial bones are intact, without suspicious lesions. Sinuses: Visualized sinuses and mastoids are clear. IMPRESSION: No acute intracranial pathology. Reviewed by: Reid Martell on 07/01/2023 2:22 PM [facility] Approved by: Reid Martell on 07/01/2023 2:22 PM [facility] Station ID: [id number]
--- NOTE | 2023-07-01 14:33 | CT Report ---
PROCEDURE: ANGIO CHEST W/WO INDICATIONS: Chest pain, aorta protocol CONTRAST: 80ml omni 300 TECHNIQUE: After the administration of intravenous contrast, 2 mm axial images were acquired from the pulmonary apices to the posterior costophrenic angles during the arterial phase. In addition, 1 mm lung kernel and 5 mm soft tissue kernel reconstructions were performed. 3-dimensional coronal oblique maximum int ensity projection (MIP) reformats, 8 mm axial MIP, and 5 mm coronal and sagittal MPR reformats were t hen performed through the thorax. For radiation dose reduction, the following was used: automated exp osure control, adjustment of mA and/or kV according to patient size. COMPARISON: 04/16/2023 FINDINGS: Image quality: Excellent. Large vessels: There is a focal annular narrowing of the aorta just below the brachiocephalic artery which causes approximately 20% narrowing and is unchanged compared to the prior CT on 04/16/2023. No an eurysm or dissection. The aorta has diffuse atherosclerotic disease. This is unchanged No filling def ects within the opacified pulmonary arteries, accounting for motion and contrast timing. Lungs and pleura: No consolidation. No pleural effusions. No pneumothorax. No suspicious pulmonary n odules which require follow up. Mediastinum: Heart size is normal. No pericardial effusion. The coronary arteries have atheroscleroti c calcifications. No large vessel abnormality. No mediastinal adenopathy by size criteria. Chest wall and lower neck: Thyroid is unremarkable. No axillary or supraclavicular adenopathy by size . Bones: No aggressive osseous abnormality. Upper Abdomen: Unremarkable. IMPRESSION: 1. No pulmonary embolism. 2. No aortic aneurysm or dissection. A focal area of annular narrowing in the descending aorta below the brachiocephalic artery is unchanged. 3. Coronary artery calcifications. Reviewed by: Reid Martell on 07/01/2023 2:32 PM PST Approved by: Reid Martell on 07/01/2023 2:32 PM PST Station ID: [id number]
[2023-07-01] MEDS ORDERED: iohexoL-300 100 ML VIAL IVP ONE (17:13)
== END 2023-07-01 14:44 | disposition home or self-care (01) ==
LOC: EDUNIT# → ED 11:13
DX: R07.9 Chest pain, unspecified (principal); G44.209 Tension-type headache, unspecified, not intractable; Z86.79 Personal history of other diseases of the circulatory system
CPT/HCPCS: 36415; 70450; 71045; 71275; 80053; 83690; 84484; 85025; 93005; 96374; 99283; 99284; A9270; Q9967

== ENCOUNTER 2023-07-05 12:34 | Outpatient (CLI) | payer MEDICARE ==
--- NOTE | 2023-07-05 14:09 | XRAY Report ---
PROCEDURE: Chest 2 View X-Ray INDICATIONS: DYSPNEA TECHNIQUE: 2 views of the chest were acquired. COMPARISON: None. FINDINGS: Surgical changes and devices: Sternotomy. ACDF of the lower cervical spine. Posterior fusion of the lumbar spine. Lungs and pleura: No pleural effusions or pneumothorax. Lungs are clear. Mediastinum: Mediastinal contours appear normal. Heart size is normal. Bones and chest wall: No suspicious bony lesions. Overlying soft tissues appear unremarkable. IMPRESSION: No acute cardiopulmonary process. Reviewed by: Leroy Sanders on 07/05/2023 2:08 PM [facility] Approved by: Leroy Sanders on 07/05/2023 2:08 PM [facility] Station ID: [id number]
== END 2023-07-05 12:35 | disposition home or self-care (01) ==
LOC: DI 12:34
PROVIDERS: ATTEND Internal Medicine
DX: R06.00 Dyspnea, unspecified (principal); R05.9 Cough, unspecified

== ENCOUNTER 2023-07-07 08:10 | Emergency (ER) | payer MEDICARE ==
--- NOTE | 2023-07-07 08:41 | ED Physician Documentation ---
History of Present Illness - Stated complaint Stated Complaint: MIGRAINE,SOA,N/V - Chief complaint Chief Complaint: General - History obtained from History obtained from: Patient, Family - Additonal information Additional information: 78-year-old gentleman with history of migraines remotely has had a headache for several days. He feels like it was related to trauma, he fell recently and injured his neck and head. He has been thoroughly imaged since then with neck CT 9 days ago and a head CT 5 days ago. Pain is persistent, constant, on the right side rating from the neck to the head. Improves with cold and he did get an Imitrex shot in the emergency department recently which was helpful as well. PD PAST MEDICAL HISTORY - Past Medical History Past Medical History: Yes Cardiovascular: Hypertension, Coronary artery disease, [place], Atrial fibrillation, Murmur, Other Respiratory: Asthma, COPD Neuro: Headaches Endocrine/Autoimmune: Type 2 diabetes GI: GERD, Hiatal hernia, Diverticulitis : Benign prostate hypertrophy, Nocturia HEENT: Chronic sinusitis, Chronic hearing loss Psych: Depression, Anxiety, Claustrophobia Musculoskeletal: Osteoarthritis, Chronic back pain, Other Derm: Herpes zoster, Other - Past Surgical History Past Surgical History: Yes General: Cholecystectomy, EGD Ortho: Hip replacement, Knee replacement, Arthroscopic surgery, Other Cardiovascular: CABG, Other HEENT: Other - Present Medications Home Medications: Ambulatory Orders Medication Instructions Recorded Confirmed Levalbuterol Tartrate [Xopenex Hfa] 2 puffs INH Q4H PRN 06/21/17 05/29/23 traZODone [Desyrel] 400 mg PO QPM 06/21/17 05/29/23 Metoprolol Tartrate 50 mg PO DAILY 08/01/17 05/29/23 Acetaminophen/Cod 300/30 [Tylenol 1 each PO Q6H PRN #20 tablet 09/28/19 05/29/23 #3] Furosemide 20 mg PO DAILY PRN 07/13/20 05/29/23 Omeprazole 20 mg PO DAILY 07/13/20 05/29/23 glipiZIDE [Glipizide ER] 2.5 mg PO DAILY 04/27/22 05/29/23 Isosorbide Mononitrate 10 mg PO DAILY 09/13/22 05/29/23 Brimonidine 0.2% Ophth Drops 75 drops EACHEYE BID 12/25/22 05/29/23 [Alphagan P 0.2% Ophth Drops] Latanoprost/Pf [Latanoprost 0.005% 7.5 ml OP HS 12/25/22 05/29/23 Eye Drop] Lisinopril [Zestril] 40 mg PO DAILY 12/25/22 05/29/23 Levalbuterol [Xopenex] 1.25 mg INH Q8H PRN #30 ea 04/12/23 05/29/23 Albuterol 2.5 mg INH Q4H PRN #60 ml 05/29/23 Albuterol Sulf [Ventolin Hfa 1 - 2 puffs INH Q4HR PRN #18 gm 05/29/23 Inhaler] Cyclobenzaprine [Flexeril] 10 mg PO TID PRN #20 tablet 05/29/23 predniSONE [Deltasone] 60 mg PO DAILY 5 Days #15 tablet 05/29/23 Prochlorperazine Maleate 10 mg PO Q6H PRN #15 tablet 06/28/23 [Compazine] Sumatriptan Succinate [Imitrex] 50 mg PO Q6H PRN #10 tablet 06/28/23 Doxycycline Hyclate 100 mg PO BID 10 Days #20 cap 07/05/23 Ondansetron Odt [Zofran] 4 mg TL Q6H PRN #10 tablet 07/07/23 SUMAtriptan [Imitrex] 25 mg PO BID PRN #10 tablet 07/07/23 - Allergies Allergies/Adverse Reactions: Allergies Allergy/AdvReac Type Severity Reaction Status Date / Time pantoprazole sodium * Allergy Intermediate Nausea Verified 07/07/23 08:38 [From Protonix] Pwaawvi-FLM-XfV Reductase Allergy Intermediate Unknown Verified 07/07/23 08:38 Inhibitor [Nxtibrq-Joj-Ffq Reductase Inhibitor] Sulfa (Sulfonamide Allergy Intermediate Rash Verified 07/07/23 08:38 Antibiotics) latex Allergy Mild Itching Verified 07/07/23 08:38 albuterol AdvReac Severe heart Verified 07/07/23 08:38 palpatation diazepam [From Valium] AdvReac Severe DELIRIUM Verified 07/07/23 08:38 hydrocodone [From [place]] AdvReac Anxiety Verified 07/07/23 08:38 morphine AdvReac Anxiety Verified 07/07/23 08:38 - Social History Does the pt smoke?: No Smoking Status: Never smoker Does the pt drink ETOH?: No Does the pt have substance abuse?: No - Immunizations Immunizations are current?: Yes - POLST Patient has POLST: No POLST Status: Full Code PD ED PE NORMAL - Vitals Vital signs reviewed: Yes - General General: Alert and oriented X 3, No acute distress - HEENT HEENT: EOMI, Other (No tenderness over the temporal arteries. Quite small pupils.) - Neck Neck: Supple, no meningeal sign, No bony TTP, Other (Muscular tenderness over the right sternocleidomastoid) - Neuro Neuro: Alert and oriented X 3, electroplater helper 2-12 intact, No motor deficit, No sensory deficit, Normal speech Eye Opening: Spontaneous Motor: Obeys Commands Verbal: Oriented GCS Score: 15 Results - Vitals Vitals: Vital Signs - 24 hr 07/07/23 08:33 Temperature 36.1 C L Heart Rate 82 Respiratory 20 Rate Blood Pressure 130/77 O2 Saturation 98 Oxygen O2 Source [With Activity] Room air O2 Source Room air PD Medical Decision Making - ED course ED course: Seems posttraumatic and migrainous. Does not seem like temporal arteritis although this was considered. He has had help with Imitrex in the past and he is given subcu Imitrex and p.o. Zofran here. Departure - Departure Disposition: 01 Home, Self Care Clinical Impression: Headache Condition: Good Record reviewed to determine appropriate education?: Yes Instructions: ED Cephalgia Unspecified Prescriptions: SUMAtriptan [Imitrex] 25 mg PO BID PRN #10 tablet PRN Reason: Headache Ondansetron Odt [Zofran] 4 mg TL Q6H PRN #10 tablet PRN Reason: Nausea / Vomiting Comments: I sent the prescription electronically to the [facility] in [place]. Call your doctor to arrange a follow-up appointment, make the next available appointment. In the interim, return anytime if worse or if new symptoms develop. Forms: PCP List
[2023-07-07 08:42] VITALS: BP 130/77; O2SAT 98
[2023-07-07] MEDS ORDERED: ONDANSETRON ODT 4 MG TABLET TL STA (08:43)
[2023-07-07] MEDS ORDERED: SUMAtriptan 6 MG/0.5 ML VIAL SUBQ STA (08:43)
== END 2023-07-07 09:08 | disposition home or self-care (01) ==
LOC: ED 08:10
DX: R51.9 Headache, unspecified (principal); W19.XXXA Unspecified fall, initial encounter; I10 Essential (primary) hypertension; I48.91 Unspecified atrial fibrillation; E11.9 Type 2 diabetes mellitus without complications; Z79.84 Long term (current) use of oral hypoglycemic drugs
CPT/HCPCS: 96372; 99282; 99283; Q0162

== ENCOUNTER 2023-07-12 07:33 | Emergency (ER) | payer MEDICARE ==
[2023-07-12 07:55] VITALS: BP 173/87; O2SAT 95
--- NOTE | 2023-07-12 08:00 | ED Physician Documentation ---
PD HPI HEADACHE - Stated complaint Stated Complaint: CAMARENA - Chief complaint Chief Complaint: General - History obtained from History obtained from: Patient - History of Present Illness Timing - onset: Today, Last night Timing - onset during: Rest Timing - duration: Hours (est 4-5 hours ago onset.) Timing - details: Abrupt onset Pain level max: 10 Pain level now: 10 Location: Back, Left Quality: Throbbing, Aching Improved by: Dark room Worsened by: Light, Noise Contributing factors: Hypertension. No: Possible carbon monoxide, Trauma Similar symptoms before: Diagnosis (migraine headaches intermittently. Only thing to work well, per pt, is Imitrex injectable.) Review of Systems Constitutional: denies: Fever, Chills Musculoskeletal: denies: Neck pain, Back pain Neurologic: denies: Focal weakness, Numbness, Near syncope, Confused, Altered mental status, Head injury PD PAST MEDICAL HISTORY - Past Medical History Cardiovascular: Hypertension, Coronary artery disease, [place], Atrial fibrillation, Murmur, Other Respiratory: Asthma, COPD Neuro: Headaches Endocrine/Autoimmune: Type 2 diabetes GI: GERD, Hiatal hernia, Diverticulitis : Benign prostate hypertrophy, Nocturia HEENT: Chronic sinusitis, Chronic hearing loss Psych: Depression, Anxiety, Claustrophobia Musculoskeletal: Osteoarthritis, Chronic back pain, Other Derm: Herpes zoster, Other - Past Surgical History Past Surgical History: Yes General: Cholecystectomy, EGD Ortho: Hip replacement, Knee replacement, Arthroscopic surgery, Other Cardiovascular: CABG, Other HEENT: Other - Present Medications Home Medications: Ambulatory Orders Medication Instructions Recorded Confirmed Levalbuterol Tartrate [Xopenex Hfa] 2 puffs INH Q4H PRN 06/21/17 05/29/23 traZODone [Desyrel] 400 mg PO QPM 06/21/17 05/29/23 Metoprolol Tartrate 50 mg PO DAILY 08/01/17 05/29/23 Acetaminophen/Cod 300/30 [Tylenol 1 each PO Q6H PRN #20 tablet 09/28/19 05/29/23 #3] Furosemide 20 mg PO DAILY PRN 07/13/20 05/29/23 Omeprazole 20 mg PO DAILY 07/13/20 05/29/23 glipiZIDE [Glipizide ER] 2.5 mg PO DAILY 04/27/22 05/29/23 Isosorbide Mononitrate 10 mg PO DAILY 09/13/22 05/29/23 Brimonidine 0.2% Ophth Drops 75 drops EACHEYE BID 12/25/22 05/29/23 [Alphagan P 0.2% Ophth Drops] Latanoprost/Pf [Latanoprost 0.005% 7.5 ml OP HS 12/25/22 05/29/23 Eye Drop] Lisinopril [Zestril] 40 mg PO DAILY 12/25/22 05/29/23 Levalbuterol [Xopenex] 1.25 mg INH Q8H PRN #30 ea 04/12/23 05/29/23 Albuterol 2.5 mg INH Q4H PRN #60 ml 05/29/23 Albuterol Sulf [Ventolin Hfa 1 - 2 puffs INH Q4HR PRN #18 gm 05/29/23 Inhaler] Cyclobenzaprine [Flexeril] 10 mg PO TID PRN #20 tablet 05/29/23 predniSONE [Deltasone] 60 mg PO DAILY 5 Days #15 tablet 05/29/23 Prochlorperazine Maleate 10 mg PO Q6H PRN #15 tablet 06/28/23 [Compazine] Sumatriptan Succinate [Imitrex] 50 mg PO Q6H PRN #10 tablet 06/28/23 Doxycycline Hyclate 100 mg PO BID 10 Days #20 cap 07/05/23 Ondansetron Odt [Zofran] 4 mg TL Q6H PRN #10 tablet 07/07/23 SUMAtriptan [Imitrex] 25 mg PO BID PRN #10 tablet 07/07/23 Sumatriptan Inj [Imitrex Inj] 6 mg SUBQ DAILY PRN #6 ea 07/12/23 tiZANidine [Zanaflex] 4 mg PO Q8H PRN #25 tablet 07/12/23 - Allergies Allergies/Adverse Reactions: Allergies Allergy/AdvReac Type Severity Reaction Status Date / Time pantoprazole sodium * Allergy Intermediate Nausea Verified 07/07/23 08:38 [From Protonix] Ckebmtw-ORL-AuJ Reductase Allergy Intermediate Unknown Verified 07/07/23 08:38 Inhibitor [Thkaxzs-Wks-Tte Reductase Inhibitor] Sulfa (Sulfonamide Allergy Intermediate Rash Verified 07/07/23 08:38 Antibiotics) latex Allergy Mild Itching Verified 07/07/23 08:38 albuterol AdvReac Severe heart Verified 07/07/23 08:38 palpatation diazepam [From Valium] AdvReac Severe DELIRIUM Verified 07/07/23 08:38 hydrocodone [From [place]] AdvReac Anxiety Verified 07/07/23 08:38 morphine AdvReac Anxiety Verified 07/07/23 08:38 - Social History Does the pt smoke?: No Smoking Status: Never smoker Does the pt drink ETOH?: No Does the pt have substance abuse?: No - Immunizations Immunizations are current?: Yes - POLST Patient has POLST: No POLST Status: Full Code PD ED PE NORMAL - Vitals Vital signs reviewed: Yes - General General: Alert and oriented X 3, Well developed/nourished, Other (seems uncomfortable and is also very anxious. ) - HEENT HEENT: Atraumatic - Derm Derm: Normal color, Warm and dry - Neuro Neuro: Alert and oriented X 3, library science professor 2-12 intact, No motor deficit, No sensory deficit, Normal speech Eye Opening: Spontaneous Motor: Obeys Commands Verbal: Oriented GCS Score: 15 Results - Vitals Vitals: Vital Signs - 24 hr 07/12/23 07:39 Temperature 36.8 C Heart Rate 54 L Respiratory 18 Rate Blood Pressure 173/87 H O2 Saturation 95 Oxygen O2 Source [With Activity] Room air O2 Source Room air PD Medical Decision Making - ED course Complexity details: re-evaluated patient (he is feeling improved after meds given. ), considered differential (symptoms c/w migraines and has history of them. Previously injectable Imitrex was main med for improvement. he does not have any at home. ), d/w patient Reviewed Lab Results: Considered but did not see gain from testing of labs. Has symptoms c/w migraine. I do not feel imaging is indicated. Drug Therapy Requiring Monitoring for Toxicity: Subcut Imitrex. Departure - Departure Disposition: 01 Home, Self Care Clinical Impression: Migraine headache, Chronic right shoulder pain Condition: Stable Record reviewed to determine appropriate education?: Yes Instructions: ED Headache Migraine Prescriptions: Sumatriptan Inj [Imitrex Inj] 6 mg SUBQ DAILY PRN #6 ea PRN Reason: Migraine tiZANidine [Zanaflex] 4 mg PO Q8H PRN #25 tablet PRN Reason: Spasms Comments: I prescribed you some injectable Imitrex as you state that is the most effective for you. I also prescribed some tizanidine muscle relaxant for your shoulder girdle stiffness. I sent them to your preferred pharmacy. Continue with usual medications. Follow-up with your primary care. Forms: PCP List Discharge Date/Time: 07/12/23 10:23
[2023-07-12] MEDS ORDERED: PROCHLORPERAZINE 5 MG TABLET PO STA (08:53)
[2023-07-12] MEDS ORDERED: SUMAtriptan 6 MG/0.5 ML VIAL SUBQ STA (08:53)
[2023-07-12] MEDS ORDERED: methocarbamoL 500 MG TABLET PO STA (08:54)
== END 2023-07-12 10:23 | disposition home or self-care (01) ==
LOC: ED 07:33
DX: G43.909 Migraine, unspecified, not intractable, without status migrainosus (principal); M25.511 Pain in right shoulder; G89.29 Other chronic pain; I10 Essential (primary) hypertension; E11.9 Type 2 diabetes mellitus without complications; Z79.84 Long term (current) use of oral hypoglycemic drugs
CPT/HCPCS: 99282; 99283; A9270

== ENCOUNTER 2023-07-18 12:11 | Outpatient (CLI) | payer MEDICARE ==
--- NOTE | 2023-07-18 12:40 | XRAY Report ---
PROCEDURE: Shoulder 3 View RT INDICATIONS: RIGHT SHOULDE RPAIN TECHNIQUE: 3 views of the shoulder were acquired. COMPARISON: None. FINDINGS: Bones: No fractures or dislocations. No suspicious bony lesions. Visualized ribs appear intact. Periarticular osteophyte formation at the acromioclavicular and glenohumeral joints. Soft tissues: No suspicious soft tissue calcifications. The visualized lungs are within normal limi ts. IMPRESSION: Osteoarthritis. No acute fracture. No osseous lesion. If symptoms and/or clinical suspici on for pathology continue, further assessment with repeat plain films, or advanced imaging (e.g., CT, MRI, or bone scan) is recommended for further assessment. Reviewed by: Inder Liang MD on 07/18/2023 12:38 PM [facility] Approved by: Inder Liang MD on 07/18/2023 12:38 PM [facility] Station ID: [id number]
== END 2023-07-18 12:12 | disposition home or self-care (01) ==
LOC: DI 12:11
PROVIDERS: ATTEND Internal Medicine
DX: M19.011 Primary osteoarthritis, right shoulder (principal)

== ENCOUNTER 2023-07-28 09:20 | Outpatient (CLI) | payer MEDICARE ==
--- NOTE | 2023-07-28 10:33 | CT Report ---
PROCEDURE: HEAD WO INDICATIONS: ELDERLY FALL, HISTORY OF HEAD INJURY TECHNIQUE: Noncontrast 4.5 mm thick angled axial sections acquired from the foramen magnum to the vertex. For r adiation dose reduction, the following was used: automated exposure control, adjustment of mA and/or kV according to patient size. COMPARISON: 07/01/2023 FINDINGS: Image quality: Excellent. CSF spaces: Basal cisterns are patent. No extra-axial fluid collections. Ventricles are normal in size and shape. Brain: No midline shift. No intracranial masses or hemorrhage. No mass effect. Diaz-white matter i nterface is normal. There cerebral volume loss for age with resultant ventricular and sulcal prominen ce. There are periventricular and deep white matter chronic small vessel ischemic changes. Atheroscle rotic calcifications are noted in the intracranial segments of the bilateral internal carotid arterie s. Skull and face: Calvarium and visualized facial bones are intact, without suspicious lesions. Sinuses: Visualized sinuses and mastoids are clear. IMPRESSION: No acute intracranial abnormalities or acute calvarial fractures. Age-related senescent changes and sequela chronic small vessel ischemic disease. Reviewed by: Rickie Billy MD on 07/28/2023 10:32 AM PST Approved by: Rickie Billy MD on 07/28/2023 10:32 AM PST Station ID: [id number]
== END 2023-07-28 09:21 | disposition home or self-care (01) ==
LOC: DI 09:20
PROVIDERS: ATTEND Internal Medicine
DX: Z87.828 Personal history of other (healed) physical injury and trauma (principal); I67.82 Cerebral ischemia

== ENCOUNTER 2023-07-30 16:44 | Outpatient (CLI) | payer MEDICARE | END 2023-07-30 16:45 | disposition critical access hospital (66) | LOC: EMS 16:44 | DX: R07.9 Chest pain, unspecified (principal); R06.02 Shortness of breath; R42 Dizziness and giddiness; R53.83 Other fatigue; R61 Generalized hyperhidrosis; R45.1 Restlessness and agitation | CPT/HCPCS: A0425; A0427 ==

== ENCOUNTER 2023-07-30 16:56 | Emergency (ER) | payer MEDICARE ==
--- NOTE | 2023-07-30 17:18 | ED Physician Documentation ---
PD HPI CHEST PAIN - Stated complaint Stated Complaint: CP - Chief complaint Chief Complaint: Cardiac - History obtained from History obtained from: Patient, EMS - Additional information Additional information: 78-year-old male with history of coronary artery disease, COPD presents by EMS from home for right-sided chest pain and right neck pain. Patient is been seen numerous times for previous. Patient states that he has chronic chest pain, but today his pain seem to be slightly different in characteristic and he had difficulty describing it, prompting his 911 call. EMS administered aspirin and nitroglycerin in route. Review of Systems Constitutional: denies: Fever, Chills Cardiac: reports: Chest pain / pressure. denies: Palpitations, Calf pain Respiratory: denies: Dyspnea, Cough, Wheezing GI: denies: Abdominal Pain, Nausea, Vomiting, Constipation, Diarrhea : denies: Dysuria, Frequency, Hesitancy Musculoskeletal: denies: Neck pain, Back pain, Extremity pain PD PAST MEDICAL HISTORY - Past Medical History Cardiovascular: Hypertension, Coronary artery disease, [place], Atrial fibrillation, Murmur, Other Respiratory: Asthma, COPD Neuro: Headaches Endocrine/Autoimmune: Type 2 diabetes GI: GERD, Hiatal hernia, Diverticulitis : Benign prostate hypertrophy, Nocturia HEENT: Chronic sinusitis, Chronic hearing loss Psych: Depression, Anxiety, Claustrophobia Musculoskeletal: Osteoarthritis, Chronic back pain, Other Derm: Herpes zoster, Other - Past Surgical History Past Surgical History: Yes General: Cholecystectomy, EGD Ortho: Hip replacement, Knee replacement, Arthroscopic surgery, Other Cardiovascular: CABG, Other HEENT: Other - Present Medications Home Medications: Ambulatory Orders Medication Instructions Recorded Confirmed Levalbuterol Tartrate [Xopenex Hfa] 2 puffs INH Q4H PRN 06/21/17 05/29/23 traZODone [Desyrel] 400 mg PO QPM 06/21/17 05/29/23 Metoprolol Tartrate 50 mg PO DAILY 08/01/17 05/29/23 Acetaminophen/Cod 300/30 [Tylenol 1 each PO Q6H PRN #20 tablet 09/28/19 05/29/23 #3] Furosemide 20 mg PO DAILY PRN 07/13/20 05/29/23 Omeprazole 20 mg PO DAILY 07/13/20 05/29/23 glipiZIDE [Glipizide ER] 2.5 mg PO DAILY 04/27/22 05/29/23 Isosorbide Mononitrate 10 mg PO DAILY 09/13/22 05/29/23 Brimonidine 0.2% Ophth Drops 75 drops EACHEYE BID 12/25/22 05/29/23 [Alphagan P 0.2% Ophth Drops] Latanoprost/Pf [Latanoprost 0.005% 7.5 ml OP HS 12/25/22 05/29/23 Eye Drop] Lisinopril [Zestril] 40 mg PO DAILY 12/25/22 05/29/23 Levalbuterol [Xopenex] 1.25 mg INH Q8H PRN #30 ea 04/12/23 05/29/23 Albuterol 2.5 mg INH Q4H PRN #60 ml 05/29/23 Albuterol Sulf [Ventolin Hfa 1 - 2 puffs INH Q4HR PRN #18 gm 05/29/23 Inhaler] Cyclobenzaprine [Flexeril] 10 mg PO TID PRN #20 tablet 05/29/23 predniSONE [Deltasone] 60 mg PO DAILY 5 Days #15 tablet 05/29/23 Prochlorperazine Maleate 10 mg PO Q6H PRN #15 tablet 06/28/23 [Compazine] Sumatriptan Succinate [Imitrex] 50 mg PO Q6H PRN #10 tablet 06/28/23 Doxycycline Hyclate 100 mg PO BID 10 Days #20 cap 07/05/23 Ondansetron Odt [Zofran] 4 mg TL Q6H PRN #10 tablet 07/07/23 SUMAtriptan [Imitrex] 25 mg PO BID PRN #10 tablet 07/07/23 Sumatriptan Inj [Imitrex Inj] 6 mg SUBQ DAILY PRN #6 ea 07/12/23 tiZANidine [Zanaflex] 4 mg PO Q8H PRN #25 tablet 07/12/23 - Allergies Allergies/Adverse Reactions: Allergies Allergy/AdvReac Type Severity Reaction Status Date / Time pantoprazole sodium * Allergy Intermediate Nausea Verified 07/07/23 08:38 [From Protonix] Hottpqj-TJY-TkH Reductase Allergy Intermediate Unknown Verified 07/07/23 08:38 Inhibitor [Jscyxkh-Qsk-Ovx Reductase Inhibitor] Sulfa (Sulfonamide Allergy Intermediate Rash Verified 07/07/23 08:38 Antibiotics) latex Allergy Mild Itching Verified 07/07/23 08:38 albuterol AdvReac Severe heart Verified 07/07/23 08:38 palpatation diazepam [From Valium] AdvReac Severe DELIRIUM Verified 07/07/23 08:38 hydrocodone [From [place]] AdvReac Anxiety Verified 07/07/23 08:38 morphine AdvReac Anxiety Verified 07/07/23 08:38 - Social History Does the pt smoke?: No Smoking Status: Never smoker Does the pt drink ETOH?: No Does the pt have substance abuse?: No - Immunizations Immunizations are current?: Yes - POLST Patient has POLST: No POLST Status: Full Code PD ED PE NORMAL - Vitals Vital signs reviewed: Yes - General General: Alert and oriented X 3, No acute distress, Well developed/nourished - Neck Neck: Supple, no meningeal sign - Cardiac Cardiac: Strong equal pulses, Other (tachycardia) - Respiratory Respiratory: No respiratory distress, Clear bilaterally - Abdomen Abdomen: Soft, Non tender, Non distended - Derm Derm: Normal color, Warm and dry, No rash - Extremities Extremities: No deformity, No tenderness to palpate, Normal ROM s pain - Neuro Neuro: Alert and oriented X 3, mixer slagman 2-12 intact, No motor deficit, Normal speech - Psych Psych: Other (anxious affect) Results - Vitals Vitals: Vital Signs - 24 hr 07/30/23 07/30/23 07/30/23 17:01 17:04 18:28 Temperature 36.6 C 36.6 C 36.5 C Heart Rate 104 H 104 H 90 Respiratory 20 20 18 Rate Blood Pressure 129/82 H 129/82 H 124/80 O2 Saturation 94 94 96 Oxygen O2 Source [With Activity] Room air O2 Source Room air - EKG (time done) 1722 EKG releavant findings:: EKG personally interpreted by author of this note. Relevant findings are: Rate: Rate (enter#) (105), Tachy Rhythm: Sinus tachycardia [place]: Normal Intervals: Normal CT QRS: Normal Ischemia: Normal ST segments - Labs Labs: Laboratory Tests 07/30/23 07/30/23 17:35 17:35 WBC 9.7 RBC 4.63 L Hgb 14.0 Hct 42.3 MCV 91.4 MCH 30.2 MCHC 33.1 RDW 13.0 Plt Count 371 MPV 8.4 Neut # (Auto) 6.6 Lymph # (Auto) 1.4 L Parker # (Auto) 1.0 Eos # (Auto) 0.5 Baso # (Auto) 0.1 Absolute Nucleated RBC 0.00 Nucleated RBC % 0.0 Sodium 136 Potassium 3.7 Chloride 100 L Carbon Dioxide 25 Anion Gap 11.0 BUN 16 Creatinine 1.0 Estimated GFR (MDRD) 72 L Glucose 110 H Calcium 9.2 Total Bilirubin 0.4 AST 33 ALT 25 Alkaline Phosphatase 62 Troponin I High Sens 14.1 Total Protein 7.3 Albumin 4.2 Globulin 3.1 Albumin/Globulin Ratio 1.4 PD Medical Decision Making - ED course Complexity details: reviewed old records, reviewed results, re-evaluated patient, considered differential, d/w patient ED course: Chest pain and neck pain, somewhat different than patient's chronic pain. EKG is sinus tachycardia without ischemic findings. Patient yelling at nursing staff on arrival, repeatedly hitting call fry. Laboratory work is reviewed, troponin not elevated, similar to previous results. Chest x-ray negative for acute process.Patient had informed nursing staff that he is ready to leave, he states he is pain-free and wants to go home. He requested paper scrub pants and he states that he will call his for a ride home. Departure - Departure Disposition: 01 Home, Self Care Clinical Impression: Chest pain Condition: Stable Instructions: ED Chest Pain Atypical Unkn Cause Forms: PCP List Discharge Date/Time: 07/30/23 18:35
[2023-07-30] MEDS ORDERED: DROPERIDOL 5 MG/2 ML VIAL IVP STA (17:22)
[2023-07-30 17:41] LABS: BASOPHILS # (AUTO) 0.1 10^3/uL (0.0-0.1); BASOPHILS % (AUTO) 0.8 %; EOSINOPHILS # (AUTO) 0.5 10^3/uL (0.0-0.7); EOSINOPHILS % (AUTO) 5.1 %; HCT - HEMATOCRIT 42.3 % (42.0-52.0); LYMPHOCYTES # (AUTO) 1.4 10^3/uL (1.5-3.5); LYMPHOCYTES % (AUTO) 14.5 %; MEAN CORPUSCULAR HEMOGLOBIN 30.2 pg (27.0-31.0); MEAN CORPUSCULAR HGB CONC 33.1 g/dL (32.0-36.0); MEAN CORPUSCULAR VOLUME 91.4 fL (80.0-94.0); MEAN PLATELET VOLUME 8.4 fL (7.4-11.4); MONOCYTES % (AUTO) 10.5 %; NEUTROPHILS # (AUTO) 6.6 10^3/uL (1.5-6.6); NEUTROPHILS % (AUTO) 68.8 %; PLT - PLATELET COUNT 371 10^3/uL (130-450); RED BLOOD COUNT 4.63 10^6/uL (4.70-6.10); WHITE BLOOD COUNT 9.7 x10^3/uL (4.8-10.8)
--- NOTE | 2023-07-30 17:43 | XRAY Report ---
PROCEDURE: Chest 1V INDICATIONS: chest pain TECHNIQUE: One view of the chest was acquired. COMPARISON: 07/01/2023, 07/05/2023 FINDINGS: Surgical changes and devices: Cervical spinal fixation hardware can be seen. Sternotomy mediastinal clips are seen. Lungs and pleura: No pleural effusions or pneumothorax. Lungs are clear. Mediastinum: The aorta is prominent and tortuous. The cardiac contours are within normal limits. Bones and chest wall: No suspicious bony lesions. Age-appropriate degenerative changes are seen. Overlying soft tissues appear unremarkable. IMPRESSION: Portable chest within normal limits for age. Postoperative and degenerative changes are seen. Reviewed by: Bharath Hsu MD on 07/30/2023 4:41 PM [facility] Approved by: Bharath Hsu MD on 07/30/2023 4:41 PM [facility] Station ID: [id number]
[2023-07-30 17:53] LABS: ALBUMIN 4.2 g/dL (3.2-5.5); ALBUMIN/GLOBULIN RATIO 1.4 (1.0-2.2); BILIRUBIN,TOTAL 0.4 mg/dL (0.2-1.0); CALCIUM 9.2 mg/dL (8.5-10.3); POTASSIUM 3.7 mmol/L (3.5-4.5); TOTAL PROTEIN 7.3 g/dL (6.4-8.9)
[2023-07-30 18:02] LABS: TROPONIN I HIGH SENSITIVITY 14.1 ng/L (2.3-19.7)
[2023-07-30 18:36] VITALS: BP 124/80; O2SAT 96
== END 2023-07-30 18:35 | disposition home or self-care (01) ==
LOC: EDUNIT# → ED 16:56
DX: R07.9 Chest pain, unspecified (principal); I10 Essential (primary) hypertension; I48.91 Unspecified atrial fibrillation; E11.9 Type 2 diabetes mellitus without complications; Z79.84 Long term (current) use of oral hypoglycemic drugs
CPT/HCPCS: 36415; 80053; 84484; 85025; 93005; 96374; 99283

== ENCOUNTER 2023-08-03 08:50 | Emergency (ER) | payer MEDICARE ==
[2023-08-03 09:21] VITALS: BP 154/85
[2023-08-03 09:45] LABS: BASOPHILS # (AUTO) 0.1 10^3/uL (0.0-0.1); BASOPHILS % (AUTO) 0.9 %; EOSINOPHILS # (AUTO) 0.5 10^3/uL (0.0-0.7); EOSINOPHILS % (AUTO) 6.2 %; HCT - HEMATOCRIT 37.3 % (42.0-52.0); HGB - HEMOGLOBIN 12.3 g/dL (14.0-18.0); LYMPHOCYTES % (AUTO) 12.4 %; MEAN CORPUSCULAR HEMOGLOBIN 30.6 pg (27.0-31.0); MEAN CORPUSCULAR VOLUME 92.8 fL (80.0-94.0); MEAN PLATELET VOLUME 8.6 fL (7.4-11.4); MONOCYTES # (AUTO) 0.8 10^3/uL (0.0-1.0); MONOCYTES % (AUTO) 9.9 %; NEUTROPHILS # (AUTO) 5.6 10^3/uL (1.5-6.6); NEUTROPHILS % (AUTO) 70.4 %; PLT - PLATELET COUNT 294 10^3/uL (130-450); RED BLOOD COUNT 4.02 10^6/uL (4.70-6.10); RED CELL DISTRIBUTION WIDTH 12.9 % (12.0-15.0)
[2023-08-03 09:57] LABS: ALBUMIN 3.9 g/dL (3.2-5.5)
[2023-08-03 10:02] LABS: ALBUMIN/GLOBULIN RATIO 1.5 (1.0-2.2); BILIRUBIN,TOTAL 0.3 mg/dL (0.2-1.0); CREATININE 0.7 mg/dL (0.6-1.3); POTASSIUM 3.7 mmol/L (3.5-4.5); TOTAL PROTEIN 6.5 g/dL (6.4-8.9)
--- NOTE | 2023-08-03 10:18 | ED Physician Documentation ---
History of Present Illness - Stated complaint Stated Complaint: BLEEDING, - Chief complaint Chief Complaint: Abd Pain - History obtained from History obtained from: Patient - Additonal information Additional information: Patient is a 78-year-old male presenting for evaluation of blood in his stools that he reports he noticed during 2 episodes once yesterday and once the day prior. Denies having any blood in his stools today. He called his PCP yesterday who recommended he come to the emergency department for evaluation. He is also being followed at the wound clinic for a wound to his buttock area and his spouse was concerned it was getting infected due to some yellowed appearance. No fevers, chest pain, shortness of air, abdominal pain here today. He was recently seen here for chest pain. Patient does report having chronic pain and has been using Aleve occasionally for treatment of his back pain. He has had prior colonoscopies. Does not currently take a blood thinner. Denies feeling dizzy or lightheaded. is at the bedside and also states that she has been having difficulty in helping him. States that she is not able to help him with his wound including putting a dressing and does not want to do any nursing care. She feels that they need additional assistance at home. Review of Systems Constitutional: denies: Fever Cardiac: denies: Chest pain / pressure Respiratory: denies: Dyspnea GI: reports: Bloody / black stool. denies: Abdominal Pain : denies: Dysuria PD PAST MEDICAL HISTORY - Past Medical History Cardiovascular: Hypertension, Coronary artery disease, [place], Atrial fibrillation, Murmur, Other Respiratory: Asthma, COPD Neuro: Headaches Endocrine/Autoimmune: Type 2 diabetes GI: GERD, Hiatal hernia, Diverticulitis : Benign prostate hypertrophy, Nocturia HEENT: Chronic sinusitis, Chronic hearing loss Psych: Depression, Anxiety, Claustrophobia Musculoskeletal: Osteoarthritis, Chronic back pain, Other Derm: Herpes zoster, Other - Past Surgical History Past Surgical History: Yes General: Cholecystectomy, EGD Ortho: Hip replacement, Knee replacement, Arthroscopic surgery, Other Cardiovascular: CABG, Other HEENT: Other - Present Medications Home Medications: Ambulatory Orders Medication Instructions Recorded Confirmed Levalbuterol Tartrate [Xopenex Hfa] 2 puffs INH Q4H PRN 06/21/17 05/29/23 traZODone [Desyrel] 400 mg PO QPM 06/21/17 05/29/23 Metoprolol Tartrate 50 mg PO DAILY 08/01/17 05/29/23 Acetaminophen/Cod 300/30 [Tylenol 1 each PO Q6H PRN #20 tablet 09/28/19 05/29/23 #3] Furosemide 20 mg PO DAILY PRN 07/13/20 05/29/23 Omeprazole 20 mg PO DAILY 07/13/20 05/29/23 glipiZIDE [Glipizide ER] 2.5 mg PO DAILY 04/27/22 05/29/23 Isosorbide Mononitrate 10 mg PO DAILY 09/13/22 05/29/23 Brimonidine 0.2% Ophth Drops 75 drops EACHEYE BID 12/25/22 05/29/23 [Alphagan P 0.2% Ophth Drops] Latanoprost/Pf [Latanoprost 0.005% 7.5 ml OP HS 12/25/22 05/29/23 Eye Drop] Lisinopril [Zestril] 40 mg PO DAILY 12/25/22 05/29/23 Levalbuterol [Xopenex] 1.25 mg INH Q8H PRN #30 ea 04/12/23 05/29/23 Albuterol 2.5 mg INH Q4H PRN #60 ml 05/29/23 Albuterol Sulf [Ventolin Hfa 1 - 2 puffs INH Q4HR PRN #18 gm 05/29/23 Inhaler] Cyclobenzaprine [Flexeril] 10 mg PO TID PRN #20 tablet 05/29/23 predniSONE [Deltasone] 60 mg PO DAILY 5 Days #15 tablet 05/29/23 Prochlorperazine Maleate 10 mg PO Q6H PRN #15 tablet 06/28/23 [Compazine] Sumatriptan Succinate [Imitrex] 50 mg PO Q6H PRN #10 tablet 06/28/23 Ondansetron Odt [Zofran] 4 mg TL Q6H PRN #10 tablet 07/07/23 SUMAtriptan [Imitrex] 25 mg PO BID PRN #10 tablet 07/07/23 Sumatriptan Inj [Imitrex Inj] 6 mg SUBQ DAILY PRN #6 ea 07/12/23 tiZANidine [Zanaflex] 4 mg PO Q8H PRN #25 tablet 07/12/23 - Allergies Allergies/Adverse Reactions: Allergies Allergy/AdvReac Type Severity Reaction Status Date / Time pantoprazole sodium * Allergy Intermediate Nausea Verified 07/07/23 08:38 [From Protonix] Qpedpzl-PJF-RdJ Reductase Allergy Intermediate Unknown Verified 07/07/23 08:38 Inhibitor [[place]-Yib-Uqu Reductase Inhibitor] Sulfa (Sulfonamide Allergy Intermediate Rash Verified 07/07/23 08:38 Antibiotics) latex Allergy Mild Itching Verified 07/07/23 08:38 fentanyl Allergy Hallucinati Verified 08/03/23 09:17 ons hydromorphone [From Dilaudid] Allergy Anxiety Verified 08/03/23 09:16 albuterol AdvReac Severe heart Verified 07/07/23 08:38 palpatation diazepam [From Valium] AdvReac Severe DELIRIUM Verified 07/07/23 08:38 hydrocodone [From [place]] AdvReac Anxiety Verified 07/07/23 08:38 morphine AdvReac Anxiety Verified 07/07/23 08:38 - Social History Does the pt smoke?: No Smoking Status: Never smoker Does the pt drink ETOH?: No Does the pt have substance abuse?: No - Immunizations Immunizations are current?: Yes - POLST Patient has POLST: No POLST Status: Full Code PD ED PE NORMAL - General General: Alert and oriented X 3, No acute distress - HEENT HEENT: Atraumatic, Moist mucous membranes, Pharynx benign - Neck Neck: Supple, no meningeal sign - Cardiac Cardiac: RRR - Respiratory Respiratory: No respiratory distress, Clear bilaterally - Abdomen Abdomen: Normal bowel sounds, Soft, Non tender, Non distended - Rectal Rectal: Other (Chaperoned by [place], Normal colored stools, no rectal tenderness, wound to the left gluteus which appears to be well-healing, no tenderness, there is some dried serous drainage over the wound but no purulence to suggest infection) - Derm Derm: Warm and dry - Extremities Extremities: No calf tenderness / cord - Neuro Neuro: Normal speech Results - Vitals Vitals: Vital Signs - 24 hr 08/03/23 08/03/23 09:12 10:59 Temperature 36.8 C Heart Rate 95 90 Respiratory 16 16 Rate Blood Pressure 154/85 H 154/85 H O2 Saturation 95 98 Oxygen O2 Source [With Activity] Room air O2 Source Room air - Labs Labs: Microbiology 08/03/23 09:38 Occult Blood - Final Stool Laboratory Tests 08/03/23 08/03/23 08/03/23 09:25 09:25 09:25 WBC 8.0 RBC 4.02 L Hgb 12.3 L Hct 37.3 L MCV 92.8 MCH 30.6 MCHC 33.0 RDW 12.9 Plt Count 294 MPV 8.6 Neut # (Auto) 5.6 Lymph # (Auto) 1.0 L [place] # (Auto) 0.8 Eos # (Auto) 0.5 Baso # (Auto) 0.1 Absolute Nucleated RBC 0.00 Nucleated RBC % 0.0 Sodium 136 Potassium 3.7 Chloride 104 Carbon Dioxide 26 Anion Gap 6.0 BUN 12 Creatinine 0.7 Estimated GFR (MDRD) 109 Glucose 130 H Calcium 9.0 Total Bilirubin 0.3 AST 25 ALT 19 Alkaline Phosphatase 67 Total Protein 6.5 Albumin 3.9 Globulin 2.6 Albumin/Globulin Ratio 1.5 Lipase 40 Blood Type O POSITIVE PD Medical Decision Making - ED course Complexity details: reviewed results, re-evaluated patient, d/w patient ED course: Patient is a 78-year-old male presenting for evaluation of blood in his stools that he noticed for the past 2 days but none today. Not on a blood thinner. Also would like his buttock wound to be reevaluated. Patient's wound to the left buttock does not show signs of infection at this time. Stools are normal in appearance and Hemoccult negative. Labs including CBC and chemistries were reviewed. Mild decrease in hemoglobin from a few days ago but no signs of ongoing bleeding. As such I do not think he meets criteria for emergent endoscopy. His abdominal exam is benign. He has an appointment with the wound care clinic this afternoon which I encouraged him to keep. Patient also given information for Senior services as he feels he may need more assistance at home that his cannot provide. Patient counseled on need for close follow-up wi th his PCP as well as concerning symptoms to return for. Departure - Departure Disposition: 01 Home, Self Care Clinical Impression: Blood in stool, Wound of left buttock Condition: Stable Instructions: ED Hematochezia Stable Follow-Up: Kimmy Lim MD [Provider Admit Priv/Credential] - Alphonso Fernandez MD [Provider Admit Priv/Credential] - (WOUND CARE CLINIC, TODAY 08/03/23 at 1PM) Comments: We tested your stool today and it does not show blood today so the bleeding has likely stopped. Your hemoglobin level is also at a stable point and you do not need a blood transfusion. I would recommend close follow-up with Dr. Lim as you may need another colonoscopy. In the meanwhile I would recommend avoiding medications such as Aleve or ibuprofen as this can be irritating to the stomach causing bleeding. We also evaluated the wound to your buttock. You have a wound care appointment today at 1 PM and that I highly encourage you to keep. I believe the yellow drainage is part of the normal healing process and it does not appear to be infected at this time. I have also given you information for some senior services available in the area as you have expressed you could use more help at home. Please also follow-up with your primary care doctor regarding additional help you are wanting. Forms: PCP List Discharge Date/Time: 08/03/23 11:00
[2023-08-03 11:06] VITALS: O2SAT 98
== END 2023-08-03 11:00 | disposition home or self-care (01) ==
LOC: ED 08:50
DX: K92.1 Melena (principal); Z48.00 Encounter for change or removal of nonsurgical wound dressing; I10 Essential (primary) hypertension; I48.91 Unspecified atrial fibrillation; E11.9 Type 2 diabetes mellitus without complications; Z79.84 Long term (current) use of oral hypoglycemic drugs; Z95.1 Presence of aortocoronary bypass graft
CPT/HCPCS: 36415; 80053; 82272; 83690; 85025; 86900; 86901; 99283; 99284

== ENCOUNTER 2023-08-10 05:19 | Emergency (ER) | payer MEDICARE ==
[2023-08-10] MEDS: HYDROcod/ACETAM 5/325 MG TABLET PO STA (06:47)
[2023-08-10] MEDS: DOXYCYCLINE 100 MG TABLET PO STA (06:48)
--- NOTE | 2023-08-10 06:54 | ED Physician Documentation ---
PD HPI SKIN - Stated complaint Stated Complaint: MRSA INFECTION - Chief complaint Chief Complaint: Wound - History obtained from History obtained from: Patient, Family - Additional information Additional information: Patient is brought to the emergency department by his for chief complaint of "he needs to be admitted for MRSA and IV antibiotics". 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 He states his refuses to do any dressing changes or anything else because she does not want to be a caregiver. states that somewhat wound care cultured the surface of the ulcer and it came back with MRSA. The patient was started on doxycycline by prescription, but they have not actually picked up the prescription. Patient denies any fevers or chills. He has chronic pain in the buttock but denies drainage or spreading redness as far as he can tell. The states the patient was up all night yelling and she refuses to take care of him anymore. The states that she and the patient have talked to the primary care physician about assisted living or other care assistance, but that "it costs money" so they have not opted to go this route. She is not currently interested in talking to social work. She states she believes he needs admission for IV antibiotics because the patient has "MRSA". PD PAST MEDICAL HISTORY - Past Medical History Cardiovascular: Hypertension, Coronary artery disease, [place], Atrial fibrillation, Murmur, Other Respiratory: Asthma, COPD Neuro: Headaches Endocrine/Autoimmune: Type 2 diabetes GI: GERD, Hiatal hernia, Diverticulitis : Benign prostate hypertrophy, Nocturia HEENT: Chronic sinusitis, Chronic hearing loss Psych: Depression, Anxiety, Claustrophobia Musculoskeletal: Osteoarthritis, Chronic back pain, Other Derm: Herpes zoster, Other - Past Surgical History Past Surgical History: Yes General: Cholecystectomy, EGD Ortho: Hip replacement, Knee replacement, Arthroscopic surgery, Other Cardiovascular: CABG, Other HEENT: Other - Present Medications Home Medications: Ambulatory Orders Medication Instructions Recorded Confirmed Levalbuterol Tartrate [Xopenex Hfa] 2 puffs INH Q4H PRN 06/21/17 08/03/23 traZODone [Desyrel] 400 mg PO QPM 06/21/17 08/03/23 Metoprolol Tartrate 50 mg PO DAILY 08/01/17 08/03/23 Acetaminophen/Cod 300/30 [Tylenol 1 each PO Q6H PRN #20 tablet 09/28/19 08/03/23 #3] Furosemide 20 mg PO DAILY PRN 07/13/20 08/03/23 Omeprazole 20 mg PO DAILY 07/13/20 08/03/23 glipiZIDE [Glipizide ER] 2.5 mg PO DAILY 04/27/22 08/03/23 Isosorbide Mononitrate 10 mg PO DAILY 09/13/22 08/03/23 Brimonidine 0.2% Ophth Drops 75 drops EACHEYE BID 12/25/22 08/03/23 [Alphagan P 0.2% Ophth Drops] Latanoprost/Pf [Latanoprost 0.005% 7.5 ml OP HS 12/25/22 08/03/23 Eye Drop] Lisinopril [Zestril] 40 mg PO DAILY 12/25/22 08/03/23 Levalbuterol [Xopenex] 1.25 mg INH Q8H PRN #30 ea 04/12/23 08/03/23 Albuterol 2.5 mg INH Q4H PRN #60 ml 05/29/23 08/03/23 Albuterol Sulf [Ventolin Hfa 1 - 2 puffs INH Q4HR PRN #18 gm 05/29/23 08/03/23 Inhaler] Cyclobenzaprine [Flexeril] 10 mg PO TID PRN #20 tablet 05/29/23 08/03/23 predniSONE [Deltasone] 60 mg PO DAILY 5 Days #15 tablet 05/29/23 08/03/23 Prochlorperazine Maleate 10 mg PO Q6H PRN #15 tablet 06/28/23 08/03/23 [Compazine] Sumatriptan Succinate [Imitrex] 50 mg PO Q6H PRN #10 tablet 06/28/23 08/03/23 Ondansetron Odt [Zofran] 4 mg TL Q6H PRN #10 tablet 07/07/23 08/03/23 SUMAtriptan [Imitrex] 25 mg PO BID PRN #10 tablet 07/07/23 08/03/23 Sumatriptan Inj [Imitrex Inj] 6 mg SUBQ DAILY PRN #6 ea 07/12/23 08/03/23 tiZANidine [Zanaflex] 4 mg PO Q8H PRN #25 tablet 07/12/23 08/03/23 Mupirocin Calcium [Mupirocin] See Rx Instructions .ROUTE 08/03/23 .COMPLEX #30 gm Doxycycline Monohydrate 100 mg PO BID 14 Days #28 cap 08/09/23 predniSONE [Deltasone] 20 mg PO [id number] #21 tab 08/11/23 - Allergies Allergies/Adverse Reactions: Allergies Allergy/AdvReac Type Severity Reaction Status Date / Time pantoprazole sodium * Allergy Intermediate Nausea Verified 08/11/23 14:02 [From Protonix] Fkjkrdh-FFN-IiN Reductase Allergy Intermediate Unknown Verified 08/11/23 14:02 Inhibitor [[place]-Eip-Ams Reductase Inhibitor] Sulfa (Sulfonamide Allergy Intermediate Rash Verified 08/11/23 14:02 Antibiotics) latex Allergy Mild Itching Verified 08/11/23 14:02 fentanyl Allergy Hallucinati Verified 08/11/23 14:02 ons hydromorphone [From Dilaudid] Allergy Anxiety Verified 08/11/23 14:02 albuterol AdvReac Severe heart Verified 08/11/23 14:02 palpatation diazepam [From Valium] AdvReac Severe DELIRIUM Verified 08/11/23 14:02 hydrocodone [From [place]] AdvReac Anxiety Verified 08/11/23 14:02 morphine AdvReac Anxiety Verified 08/11/23 14:02 - Social History Does the pt smoke?: No Smoking Status: Never smoker Does the pt drink ETOH?: No Does the pt have substance abuse?: No - Immunizations Immunizations are current?: Yes - POLST Patient has POLST: No POLST Status: Full Code PD ED PE NORMAL - Vitals Vital signs reviewed: Yes - General General: Alert and oriented X 3, No acute distress, Well developed/nourished - HEENT HEENT: Atraumatic, PERRL, EOMI, Moist mucous membranes - Neck Neck: Supple, no meningeal sign - Cardiac Cardiac: Strong equal pulses - Respiratory Respiratory: No respiratory distress - Derm Derm: Normal color, Warm and dry, No rash, Other (Superficial, well- circumscribed sore on left buttock. No surrounding erythema, induration, or edema. No fluctuance. No drainage. Wound appears to have granulation tissue.) - Extremities Extremities: No deformity - Neuro Neuro: Alert and oriented X 3 - Psych Psych: Normal mood, Normal affect Results - Vitals Vitals: Oxygen O2 Source [With Activity] Room air O2 Source Room air PD Medical Decision Making - ED course Complexity details: considered differential, d/w patient ED course: The patient's wound actually looked very good and there is no evidence of superinfection. This wound is very longstanding and chronic and I discussed with the patient and that there is no role for admission or IV antibiotics. I suspect that this it is most likely colonized with MRSA, but I do not see any evidence of acute infection. If the wound care physician has prescribed antibiotics and feels this is necessary, then I will defer to his wishes for the patient to use the outpatient doxycycline. I have discussed with the that I will give the patient a dose of doxycycline here, but she will need to take the patient home. The patient was first very emotionally upset and seem to be the patient, but did calm down after we discussed the case about. The patient was given a dose of doxycycline here and a dose of pain medicine. He is stable for discharge home. Departure - Departure Disposition: Home, Self Care Clinical Impression: Chronic wound Condition: Stable Instructions: ED Staph Infec Abx Tx Only, ED Wound Care Comments: You have a chronic wound on your right buttock that actually appears to be fairly healthy as far as chronic wounds are concerned. There is no evidence of infection of the tissue adjacent to the wound and most likely, the MRSA growing on the moist surface of the wound is reflective of your skin's normal bacteria. Staph bacteria is natural on the skin and many people are naturally colonized with MRSA. 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 Please take your next dose this afternoon. You have been given pain medication in the emergency department as well. You will need to follow-up with your primary doctor to discuss a plan for either home health or assisted living if you are not able to manage yourself at home with the help of your spouse. There is no role whatsoever for IV antibiotics or for admission to the hospital for this chronic condition which has been going on for months. If you do not have a set of dressing supplies from the wound care clinic, then you may apply a topical antibiotic such as Neosporin over the surface of the wound and place a gauze dressing over that. We have dressed your wound today in the emergency department. Forms: PCP List Discharge Date/Time: 08/10/23 07:05
[2023-08-10 07:35] VITALS: BP 184/116; O2SAT 94
== END 2023-08-10 07:05 | disposition home or self-care (01) ==
LOC: ED 05:19
DX: L89.322 Pressure ulcer of left buttock, stage 2 (principal)
CPT/HCPCS: 36415; 99282; 99283; A9270

== ENCOUNTER 2023-08-11 13:58 | Emergency (ER) | payer MEDICARE ==
[2023-08-11 14:48] LABS: BASOPHILS # (AUTO) 0.1 10^3/uL (0.0-0.1); BASOPHILS % (AUTO) 0.9 %; EOSINOPHILS # (AUTO) 0.4 10^3/uL (0.0-0.7); EOSINOPHILS % (AUTO) 4.5 %; HCT - HEMATOCRIT 41.1 % (42.0-52.0); HGB - HEMOGLOBIN 13.1 g/dL (14.0-18.0); LYMPHOCYTES # (AUTO) 1.2 10^3/uL (1.5-3.5); LYMPHOCYTES % (AUTO) 15.2 %; MEAN CORPUSCULAR HEMOGLOBIN 29.7 pg (27.0-31.0); MEAN CORPUSCULAR HGB CONC 31.9 g/dL (32.0-36.0); MEAN CORPUSCULAR VOLUME 93.2 fL (80.0-94.0); MEAN PLATELET VOLUME 8.3 fL (7.4-11.4); MONOCYTES # (AUTO) 0.7 10^3/uL (0.0-1.0); MONOCYTES % (AUTO) 9.3 %; NEUTROPHILS # (AUTO) 5.5 10^3/uL (1.5-6.6); NEUTROPHILS % (AUTO) 69.7 %; PLT - PLATELET COUNT 311 10^3/uL (130-450); RED BLOOD COUNT 4.41 10^6/uL (4.70-6.10); RED CELL DISTRIBUTION WIDTH 12.6 % (12.0-15.0); WHITE BLOOD COUNT 7.9 x10^3/uL (4.8-10.8)
--- NOTE | 2023-08-11 15:04 | XRAY Report ---
PROCEDURE: Chest 1V INDICATIONS: dyspnea TECHNIQUE: One view of the chest was acquired. COMPARISON: None. FINDINGS: Surgical changes and devices: Median sternotomy. Cervical fusion hardware. Lumbar spine fusion hardw are. Lungs and pleura: No pleural effusions or pneumothorax. Lungs are clear. Mediastinum: Mediastinal contours appear normal. Heart size is normal. Bones and chest wall: No suspicious bony lesions. Overlying soft tissues appear unremarkable. IMPRESSION: No acute process. Reviewed by: Inder Farley MD on 08/11/2023 3:02 PM PST Approved by: Inder Farley MD on 08/11/2023 3:02 PM PST Station ID: [id number]
[2023-08-11 15:08] LABS: ALBUMIN/GLOBULIN RATIO 1.4 (1.0-2.2); BILIRUBIN,TOTAL 0.4 mg/dL (0.2-1.0); CALCIUM 9.4 mg/dL (8.5-10.3); CREATININE 0.7 mg/dL (0.6-1.3); POTASSIUM 4.1 mmol/L (3.5-4.5); TOTAL PROTEIN 6.9 g/dL (6.4-8.9)
[2023-08-11] MEDS ORDERED: methylPREDNISolone SUCCINATE 125 MG/2 ML VIAL IVP STA (15:23)
[2023-08-11] MEDS ORDERED: KETOROLAC 15 MG/ML VIAL IVP STA (15:23)
[2023-08-11] MEDS ORDERED: IPRATROPIUM/ALBUTEROL 3 ML NEB INH STA (15:23)
[2023-08-11] MEDS ORDERED: oxyCODONE 5 MG TABLET PO STA (15:24)
--- NOTE | 2023-08-11 15:26 | ED Physician Documentation ---
PD HPI CHEST PAIN - Stated complaint Stated Complaint: SOA/PASSED OUT - Chief complaint Chief Complaint: General - History obtained from History obtained from: Patient - Additional information Additional information: He has a history of NM, COPD, type 2 diabetes and chronic pain. He also has a history of frequent emergency department use with a total of 20 visits over the last 12 months. Recent diagnosis of MRSA infection on the buttocks, just started doxycycline. His main complaint is that he had 4 days of a productive cough with chest pain and shortness of breath. He says he had a fever but does not know how high it has been. His has not been ill. PD PAST MEDICAL HISTORY - Past Medical History Past Medical History: Yes Cardiovascular: Hypertension, Coronary artery disease, [place], Atrial fibrillation, Murmur, Other Respiratory: Asthma, COPD Neuro: Headaches Endocrine/Autoimmune: Type 2 diabetes GI: GERD, Hiatal hernia, Diverticulitis : Benign prostate hypertrophy, Nocturia HEENT: Chronic sinusitis, Chronic hearing loss Psych: Depression, Anxiety, Claustrophobia Musculoskeletal: Osteoarthritis, Chronic back pain, Other Derm: Herpes zoster, Other - Past Surgical History Past Surgical History: Yes General: Cholecystectomy, EGD Ortho: Hip replacement, Knee replacement, Arthroscopic surgery, Other Cardiovascular: CABG, Other HEENT: Other - Present Medications Home Medications: Ambulatory Orders Medication Instructions Recorded Confirmed Levalbuterol Tartrate [Xopenex Hfa] 2 puffs INH Q4H PRN 06/21/17 08/03/23 traZODone [Desyrel] 400 mg PO QPM 06/21/17 08/03/23 Metoprolol Tartrate 50 mg PO DAILY 08/01/17 08/03/23 Acetaminophen/Cod 300/30 [Tylenol 1 each PO Q6H PRN #20 tablet 09/28/19 08/03/23 #3] Furosemide 20 mg PO DAILY PRN 07/13/20 08/03/23 Omeprazole 20 mg PO DAILY 07/13/20 08/03/23 glipiZIDE [Glipizide ER] 2.5 mg PO DAILY 04/27/22 08/03/23 Isosorbide Mononitrate 10 mg PO DAILY 09/13/22 08/03/23 Brimonidine 0.2% Ophth Drops 75 drops EACHEYE BID 12/25/22 08/03/23 [Alphagan P 0.2% Ophth Drops] Latanoprost/Pf [Latanoprost 0.005% 7.5 ml OP HS 12/25/22 08/03/23 Eye Drop] Lisinopril [Zestril] 40 mg PO DAILY 12/25/22 08/03/23 Levalbuterol [Xopenex] 1.25 mg INH Q8H PRN #30 ea 04/12/23 08/03/23 Albuterol 2.5 mg INH Q4H PRN #60 ml 05/29/23 08/03/23 Albuterol Sulf [Ventolin Hfa 1 - 2 puffs INH Q4HR PRN #18 gm 05/29/23 08/03/23 Inhaler] Cyclobenzaprine [Flexeril] 10 mg PO TID PRN #20 tablet 05/29/23 08/03/23 predniSONE [Deltasone] 60 mg PO DAILY 5 Days #15 tablet 05/29/23 08/03/23 Prochlorperazine Maleate 10 mg PO Q6H PRN #15 tablet 06/28/23 08/03/23 [Compazine] Sumatriptan Succinate [Imitrex] 50 mg PO Q6H PRN #10 tablet 06/28/23 08/03/23 Ondansetron Odt [Zofran] 4 mg TL Q6H PRN #10 tablet 07/07/23 08/03/23 SUMAtriptan [Imitrex] 25 mg PO BID PRN #10 tablet 07/07/23 08/03/23 Sumatriptan Inj [Imitrex Inj] 6 mg SUBQ DAILY PRN #6 ea 07/12/23 08/03/23 tiZANidine [Zanaflex] 4 mg PO Q8H PRN #25 tablet 07/12/23 08/03/23 Mupirocin Calcium [Mupirocin] See Rx Instructions .ROUTE 08/03/23 .COMPLEX #30 gm Doxycycline Monohydrate 100 mg PO BID 14 Days #28 cap 08/09/23 predniSONE [Deltasone] 20 mg PO [id number] #21 tab 08/11/23 - Allergies Allergies/Adverse Reactions: Allergies Allergy/AdvReac Type Severity Reaction Status Date / Time pantoprazole sodium * Allergy Intermediate Nausea Verified 08/11/23 14:02 [From Protonix] Xfwicwo-PPP-RpI Reductase Allergy Intermediate Unknown Verified 08/11/23 14:02 Inhibitor [Ywzdnod-Hzv-Zpu Reductase Inhibitor] Sulfa (Sulfonamide Allergy Intermediate Rash Verified 08/11/23 14:02 Antibiotics) latex Allergy Mild Itching Verified 08/11/23 14:02 fentanyl Allergy Hallucinati Verified 08/11/23 14:02 ons hydromorphone [From Dilaudid] Allergy Anxiety Verified 08/11/23 14:02 albuterol AdvReac Severe heart Verified 08/11/23 14:02 palpatation diazepam [From Valium] AdvReac Severe DELIRIUM Verified 08/11/23 14:02 hydrocodone [From Shaw] AdvReac Anxiety Verified 08/11/23 14:02 morphine AdvReac Anxiety Verified 08/11/23 14:02 - Social History Does the pt smoke?: No Smoking Status: Never smoker Does the pt drink ETOH?: No Does the pt have substance abuse?: No - Immunizations Immunizations are current?: Yes - POLST Patient has POLST: No POLST Status: Full Code PD ED PE NORMAL - Vitals Vital signs reviewed: Yes - General General: Alert and oriented X 3, No acute distress - Cardiac Cardiac: RRR, No murmur - Respiratory Respiratory: Other (Frequent coughing and loud expiratory wheezing without specific focal findings. Nonlabored breathing.) - Abdomen Abdomen: Normal bowel sounds, Soft, Non tender - Derm Derm: Normal color, Warm and dry, Other (Broad but shallow stage I pressure ulcer on the left buttock/gluteal crease) - Neuro Neuro: Alert and oriented X 3, Normal speech Results - Vitals Vitals: Vital Signs - 24 hr 08/11/23 08/11/23 14:02 15:37 Temperature 36.8 C Heart Rate 80 87 Respiratory 16 18 Rate Blood Pressure 136/71 H O2 Saturation 96 Oxygen O2 Source [] Room air O2 Source Room air - EKG (time done) 1537 EKG releavant findings:: EKG personally interpreted by author of this note. Relevant findings are: Rate: Rate (enter#) (66) Rhythm: NSR (w pacs) [place]: RAD Intervals: Prolonged [place] Ischemia: Normal ST segments. No: ST elevation c/w ischemia - Labs Labs: Laboratory Tests 08/11/23 08/11/23 14:43 14:43 WBC 7.9 RBC 4.41 L Hgb 13.1 L Hct 41.1 L MCV 93.2 MCH 29.7 MCHC 31.9 L RDW 12.6 Plt Count 311 MPV 8.3 Neut # (Auto) 5.5 Lymph # (Auto) 1.2 L [place] # (Auto) 0.7 Eos # (Auto) 0.4 Baso # (Auto) 0.1 Absolute Nucleated RBC 0.00 Nucleated RBC % 0.0 Sodium 136 Potassium 4.1 Chloride 102 Carbon Dioxide 28 Anion Gap 6.0 BUN 16 Creatinine 0.7 Estimated GFR (MDRD) 109 Glucose 129 H Calcium 9.4 Total Bilirubin 0.4 AST 21 ALT 21 Alkaline Phosphatase 68 Troponin I High Sens 9.4 Total Protein 6.9 Albumin 4.0 Globulin 2.9 Albumin/Globulin Ratio 1.4 Lipase 49 - Rads (name of study) 1v chest- NAD Relevant Findings:: Final report received, EMP independent interpretation of test PD Medical Decision Making - ED course ED course: 78-year-old gentleman presents with uncontrolled pain, that said he cannot really pinpoint where the pain is and there is a concern for drug-seeking behavior from both my personal interactions previously as well as review of the chart. His main presenting issue seems to be shortness of breath and chest pain which clinically is consistent with a COPD exacerbation. Will check labs, chest x-ray, treat with IV steroids, Toradol, and a dose of oxycodone and a breathing treatment. He was breathing better after the above treatments. Still complaining of a lot of pain but he has chronic pain and did not think it was appropriate to change his pain management routine. His workup was negative save mild anemia with no white count. CMP was grossly unremarkable. Departure - Departure Disposition: Home, Self Care Clinical Impression: COPD exacerbation Condition: Good Instructions: ED COPD Flare Prescriptions: predniSONE [Deltasone] 20 mg PO [id number] #21 tab Comments: You were seen today for COPD exacerbation. There is no pneumonia on x-ray. It is appropriate for you to continue taking the doxycycline you already just started, to that I am adding steroids which should help with your shortness of breath and inflammation. Please follow-up with your primary care physician for You are increasing chronic pain. Further pain medications do need to come from your primary care physician. We did check for evidence of heart attack or more severe infections, none was evident. Forms: PCP List
[2023-08-11 15:32] LABS: TROPONIN I HIGH SENSITIVITY 9.4 ng/L (2.3-19.7)
[2023-08-11] MEDS ORDERED: ONDANSETRON ODT 4 MG TABLET TL STA (16:13)
[2023-08-11 16:39] VITALS: BP 132/82; O2SAT 98
== END 2023-08-11 16:27 | disposition home or self-care (01) ==
LOC: ED 13:58
DX: J44.1 Chronic obstructive pulmonary disease with (acute) exacerbation (principal); G89.29 Other chronic pain
CPT/HCPCS: 36415; 71045; 80053; 83690; 84484; 85025; 93005; 94640; 96374; 99284; A9270; Q0162

== ENCOUNTER 2023-08-19 11:36 | Emergency (ER) | payer MEDICARE ==
--- NOTE | 2023-08-19 12:43 | ED Physician Documentation ---
PD HPI CHEST PAIN - Stated complaint Stated Complaint: DIFF STANDING,SOA,CHEST PX,NECK PX,DIZZY - Chief complaint Chief Complaint: Cardiac - History obtained from History obtained from: Patient, Family - Additional information Additional information: 78-year-old male presents emergency department for chest pain ongoing now for about 3 days. 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 He said the last 3 days has been noticing chest pain that is in his left side radiating down to his left lower extremity and up his left neck. He also endorses and some dizziness with ambulation. 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 and I do want to investigate this today I just told the triage nurse." PD PAST MEDICAL HISTORY - Past Medical History Past Medical History: Yes Cardiovascular: Hypertension, Coronary artery disease, [place], Atrial fibrillation, Murmur, Other Respiratory: Asthma, COPD Neuro: Headaches Endocrine/Autoimmune: Type 2 diabetes GI: GERD, Hiatal hernia, Diverticulitis : Benign prostate hypertrophy, Nocturia HEENT: Chronic sinusitis, Chronic hearing loss Psych: Depression, Anxiety, Claustrophobia Musculoskeletal: Osteoarthritis, Chronic back pain, Other Derm: Herpes zoster, Other - Past Surgical History Past Surgical History: Yes General: Cholecystectomy, EGD Ortho: Hip replacement, Knee replacement, Arthroscopic surgery, Other Cardiovascular: CABG, Other HEENT: Other - Present Medications Home Medications: Ambulatory Orders Medication Instructions Recorded Confirmed Levalbuterol Tartrate [Xopenex Hfa] 2 puffs INH Q4H PRN 06/21/17 08/03/23 traZODone [Desyrel] 400 mg PO QPM 06/21/17 08/03/23 Metoprolol Tartrate 50 mg PO DAILY 08/01/17 08/03/23 Acetaminophen/Cod 300/30 [Tylenol 1 each PO Q6H PRN #20 tablet 09/28/19 08/03/23 #3] Furosemide 20 mg PO DAILY PRN 07/13/20 08/03/23 Omeprazole 20 mg PO DAILY 07/13/20 08/03/23 glipiZIDE [Glipizide ER] 2.5 mg PO DAILY 04/27/22 08/03/23 Isosorbide Mononitrate 10 mg PO DAILY 09/13/22 08/03/23 Brimonidine 0.2% Ophth Drops 75 drops EACHEYE BID 12/25/22 08/03/23 [Alphagan P 0.2% Ophth Drops] Latanoprost/Pf [Latanoprost 0.005% 7.5 ml OP HS 12/25/22 08/03/23 Eye Drop] Lisinopril [Zestril] 40 mg PO DAILY 12/25/22 08/03/23 Levalbuterol [Xopenex] 1.25 mg INH Q8H PRN #30 ea 04/12/23 08/03/23 Albuterol 2.5 mg INH Q4H PRN #60 ml 05/29/23 08/03/23 Albuterol Sulf [Ventolin Hfa 1 - 2 puffs INH Q4HR PRN #18 gm 05/29/23 08/03/23 Inhaler] Cyclobenzaprine [Flexeril] 10 mg PO TID PRN #20 tablet 05/29/23 08/03/23 predniSONE [Deltasone] 60 mg PO DAILY 5 Days #15 tablet 05/29/23 08/03/23 Prochlorperazine Maleate 10 mg PO Q6H PRN #15 tablet 06/28/23 08/03/23 [Compazine] Sumatriptan Succinate [Imitrex] 50 mg PO Q6H PRN #10 tablet 06/28/23 08/03/23 Ondansetron Odt [Zofran] 4 mg TL Q6H PRN #10 tablet 07/07/23 08/03/23 SUMAtriptan [Imitrex] 25 mg PO BID PRN #10 tablet 07/07/23 08/03/23 Sumatriptan Inj [Imitrex Inj] 6 mg SUBQ DAILY PRN #6 ea 07/12/23 08/03/23 tiZANidine [Zanaflex] 4 mg PO Q8H PRN #25 tablet 07/12/23 08/03/23 Mupirocin Calcium [Mupirocin] See Rx Instructions .ROUTE 08/03/23 .COMPLEX #30 gm Doxycycline Monohydrate 100 mg PO BID 14 Days #28 cap 08/09/23 predniSONE [Deltasone] 20 mg PO [id number] #21 tab 08/11/23 Mupirocin Calcium [Mupirocin] 30 gm TP DAILY #30 gm 08/17/23 - Allergies Allergies/Adverse Reactions: Allergies Allergy/AdvReac Type Severity Reaction Status Date / Time pantoprazole sodium * Allergy Intermediate Nausea Verified 08/11/23 14:02 [From Protonix] Tglgafx-NFI-SvY Reductase Allergy Intermediate Unknown Verified 08/11/23 14:02 Inhibitor [Smjwykh-Lwp-Uim Reductase Inhibitor] Sulfa (Sulfonamide Allergy Intermediate Rash Verified 08/11/23 14:02 Antibiotics) latex Allergy Mild Itching Verified 08/11/23 14:02 fentanyl Allergy Hallucinati Verified 08/11/23 14:02 ons hydromorphone [From Dilaudid] Allergy Anxiety Verified 08/11/23 14:02 albuterol AdvReac Severe heart Verified 08/11/23 14:02 palpatation diazepam [From Valium] AdvReac Severe DELIRIUM Verified 08/11/23 14:02 hydrocodone [From Valentine] AdvReac Anxiety Verified 08/11/23 14:02 morphine AdvReac Anxiety Verified 08/11/23 14:02 - Social History Does the pt smoke?: No Smoking Status: Never smoker Does the pt drink ETOH?: No Does the pt have substance abuse?: No - Immunizations Immunizations are current?: Yes - POLST Patient has POLST: No POLST Status: Full Code PD ED PE NORMAL - Vitals Vital signs reviewed: Yes - General General: Alert and oriented X 3, No acute distress, Well developed/nourished - HEENT HEENT: Atraumatic, PERRL, EOMI - Neck Neck: No JVD - Cardiac Cardiac: RRR, No murmur, No gallop, Strong equal pulses - Respiratory Respiratory: No respiratory distress, Clear bilaterally (LLQ tenderness) - Abdomen Abdomen: Soft, Non distended - Derm Derm: Normal color - Extremities Extremities: No edema, No calf tenderness / cord - Neuro Neuro: Alert and oriented X 3, No motor deficit, Normal speech Eye Opening: Spontaneous Motor: Obeys Commands Verbal: Oriented GCS Score: 15 Results - Vitals Vitals: Vital Signs - 24 hr 08/19/23 08/19/23 11:46 14:34 Temperature 37.2 C 36.3 C L Heart Rate 71 72 Respiratory 18 18 Rate Blood Pressure 127/74 165/84 H O2 Saturation 99 97 Oxygen O2 Source [] Room air O2 Source Room air - EKG (time done) 1153 EKG releavant findings:: EKG personally interpreted by author of this note. Relevant findings are: Rate: Rate (enter#) (75) Rhythm: NSR [place]: Normal Intervals: Normal OR, QRS normal QRS: Normal Ischemia: Normal ST segments Compare to prior EKG: Other (improved from prior EKG) Computer interpretation: Agree with computer - Labs Labs: Laboratory Tests 08/19/23 08/19/23 08/19/23 12:50 12:50 12:50 WBC 9.9 RBC 4.32 L Hgb 13.1 L Hct 40.7 L MCV 94.2 H MCH 30.3 MCHC 32.2 RDW 12.4 Plt Count 277 MPV 8.5 Neut # (Auto) 7.4 H Lymph # (Auto) 1.4 L [place] # (Auto) 0.9 Eos # (Auto) 0.1 Baso # (Auto) 0.1 Absolute Nucleated RBC 0.00 Nucleated RBC % 0.0 Sodium 137 Potassium 4.1 Chloride 95 L Carbon Dioxide 33 H Anion Gap 9.0 BUN 21 H Creatinine 0.7 Estimated GFR (MDRD) 109 Glucose 107 H Calcium 9.0 Magnesium 1.9 Total Bilirubin 0.6 AST 24 ALT 25 Alkaline Phosphatase 66 Troponin I High Sens 9.9 Total Protein 6.6 Albumin 4.0 Globulin 2.6 Albumin/Globulin Ratio 1.5 Lipase 32 - Rads (name of study) CTA chest abd pelvis Relevant Findings:: Final report received, EMP independent interpretation of test (No dissection or PE) PD Medical Decision Making - ED course ED course: 78 yo male here for chest pain Exam without evidence of volume overload so doubt heart failure. EKG without signs of active ischemia. Given the timing of pain to ER presentation, single troponin was negative so doubt NSTEMI. Ruled out acute PE ,pneumothorax, thoracic aortic dissection, pericarditis, tamponade, pneumonia with CTA chest abdomen pelvis. HEART score: 3 so plan to discharge patient home with PCP follow up. CBC CMP overall unremarkable. Departure - Departure Disposition: Home, Self Care Clinical Impression: Atypical chest pain Chest pain Qualifiers: Chest pain type: unspecified Qualified Code(s): R07.9 - Chest pain, unspecified Condition: Good Instructions: ED Chest Pain NonCardiac Comments: Thank you for trusting us with your care we have done a complete and thorough exam and we are not seeing any acute abnormalities at this time. Follow-up with your primary care provider about your emergency department visit please come back to the emergency department having difficulty breathing, crushing chest pain, or any other concerning symptoms Forms: PCP List
[2023-08-19 12:56] LABS: BASOPHILS # (AUTO) 0.1 10^3/uL (0.0-0.1); BASOPHILS % (AUTO) 0.6 %; EOSINOPHILS # (AUTO) 0.1 10^3/uL (0.0-0.7); HCT - HEMATOCRIT 40.7 % (42.0-52.0); HGB - HEMOGLOBIN 13.1 g/dL (14.0-18.0); LYMPHOCYTES # (AUTO) 1.4 10^3/uL (1.5-3.5); LYMPHOCYTES % (AUTO) 13.9 %; MEAN CORPUSCULAR HEMOGLOBIN 30.3 pg (27.0-31.0); MEAN CORPUSCULAR HGB CONC 32.2 g/dL (32.0-36.0); MEAN CORPUSCULAR VOLUME 94.2 fL (80.0-94.0); MEAN PLATELET VOLUME 8.5 fL (7.4-11.4); MONOCYTES # (AUTO) 0.9 10^3/uL (0.0-1.0); MONOCYTES % (AUTO) 9.1 %; NEUTROPHILS # (AUTO) 7.4 10^3/uL (1.5-6.6); NEUTROPHILS % (AUTO) 75.1 %; PLT - PLATELET COUNT 277 10^3/uL (130-450); RED BLOOD COUNT 4.32 10^6/uL (4.70-6.10); RED CELL DISTRIBUTION WIDTH 12.4 % (12.0-15.0); WHITE BLOOD COUNT 9.9 x10^3/uL (4.8-10.8)
[2023-08-19 13:11] LABS: ALBUMIN/GLOBULIN RATIO 1.5 (1.0-2.2); BILIRUBIN,TOTAL 0.6 mg/dL (0.2-1.0); CREATININE 0.7 mg/dL (0.6-1.3); MAGNESIUM 1.9 mg/dL (1.7-2.3); POTASSIUM 4.1 mmol/L (3.5-4.5); TOTAL PROTEIN 6.6 g/dL (6.4-8.9)
[2023-08-19] MEDS ORDERED: iohexoL-300 100 ML VIAL ONE (13:34)
--- NOTE | 2023-08-19 15:03 | CT Report ---
PROCEDURE: Angio Chest INDICATIONS: CP eval aorta CONTRAST: Omni 300 100ml TECHNIQUE: After the administration of intravenous contrast, 2 mm axial images were acquired from the pulmonary apices to the posterior costophrenic angles during the arterial phase. In addition, 1 mm lung kernel and 5 mm soft tissue kernel reconstructions were performed. 3-dimensional coronal oblique maximum int ensity projection (MIP) reformats, 8 mm axial MIP, and 5 mm coronal and sagittal MPR reformats were t hen performed through the thorax. For radiation dose reduction, the following was used: automated exp osure control, adjustment of mA and/or kV according to patient size. COMPARISON: None. FINDINGS: Image quality: Excellent. Large vessels: No filling defects within the opacified pulmonary arteries, accounting for motion and contrast timing. No evidence of acute aortic syndrome or aortic aneurysm. No aortic dissection is ramirez spected. Prior sternotomy, presumed prior CABG. Lungs and pleura: No consolidation. No pleural effusions. No pneumothorax. No suspicious pulmonary n odules which require follow up. Mediastinum: Heart size is normal. No pericardial effusion. No large vessel abnormality. No mediastin al adenopathy by size criteria. Chest wall and lower neck: Thyroid is unremarkable. No axillary or supraclavicular adenopathy by size . Bones: No aggressive osseous abnormality. Upper Abdomen: Unremarkable. Prior cholecystectomy. IMPRESSION: No pulmonary embolus, no evidence of aortic dissection or aneurysm. Prior sternotomy, presumed prior CABG.. Reviewed by: Jean Oneill MD on 08/19/2023 3:02 PM PST Approved by: Jean Oneill MD on 08/19/2023 3:02 PM PST Station ID: [id number]
--- NOTE | 2023-08-19 15:15 | CT Report ---
PROCEDURE: Angio Abdomen/Pelvis INDICATIONS: CP, eval aorta CONTRAST: Omni 300 100ml TECHNIQUE: After the administration of intravenous contrast, 2.5 mm thick sections acquired from the diaphragm t o the symphysis. 10 mm maximum-intensity projection (MIP) reformats were then acquired. For radiati on dose reduction, the following was used: automated exposure control, adjustment of mA and/or kV ac cording to patient size. COMPARISON: CT chest angiogram same day. FINDINGS: Image quality: Excellent. Aorta: No aneurysm or dissection, no evidence of significant aortic stenosis. Mesenteric arteries: Celiac trunk, superior and inferior mesenteric arteries appear patent. Right pelvic arteries: Patent bilaterally without aneurysm or dissection. Bilateral hip arthroplasty devices produce metal artifact mildly degrading quality of visualization through the lower third of the pelvis. Left pelvic arteries: As was seen on the right metal artifact from bilateral hip arthroplasties does reduce quality of visualization. No definite stenosis, aneurysm, or dissection within this is taken into account. Extravascular soft tissues: Lung bases are clear. Heart size is normal. Liver and spleen are ben l in size and enhancement. Gallbladder has been previously resected. Biliary system is non dilated. Pancreas enhances normally. No adrenal nodules. Kidneys are normal in size and enhancement, witho ut hydronephrosis. Non opacified bowel loops are normal in wall thickness and caliber. No free flui d or air. No retroperitoneal or mesenteric adenopathy. No ventral hernias. No suspicious bony lesi ons. No vertebral body compression fractures. IMPRESSION: No vascular abnormalities seen, no acute disease is found. Bilateral hip arthroplasties and also lumbosacral spine metallic fixation devices produce metal artifact to the degree that there is mild degradation of image quality especially through the lower third of the pelvis but when this i s taken into account no definite acute disease is found. Prior cholecystectomy. Reviewed by: Jean Oneill MD on 08/19/2023 3:14 PM PST Approved by: Jean Oneill MD on 08/19/2023 3:14 PM PST Station ID: [id number]
[2023-08-19 15:54] VITALS: BP 156/90; O2SAT 99
[2023-08-19] MEDS ORDERED: iohexoL-300 100 ML VIAL IVP ONE (17:45)
== END 2023-08-19 15:51 | disposition home or self-care (01) ==
LOC: ED 11:36
DX: R07.89 Other chest pain (principal)
CPT/HCPCS: 36415; 71275; 74174; 80053; 83690; 83735; 84484; 85025; 93005; 99283; 99284; Q9967

== ENCOUNTER 2023-08-25 12:38 | Outpatient (CLI) | payer MEDICARE | END 2023-08-25 23:59 | disposition EMS.NT | LOC: EMS 12:38 | DX: R06.02 Shortness of breath (principal) ==

== ENCOUNTER 2023-08-27 22:27 | Outpatient (CLI) | payer MEDICARE | END 2023-08-27 22:28 | disposition critical access hospital (66) | LOC: EMS 22:27 | DX: T39.1X1A Poisoning by 4-Aminophenol derivatives, accidental (unintentional), initial encounter (principal) | CPT/HCPCS: A0425; A0429 ==

== ENCOUNTER 2023-09-07 11:11 | Outpatient (CLI) | payer MEDICARE ==
[2023-09-07 11:34] LABS: BILIRUBIN,URINE NEGATIVE (NEGATIVE); GLUCOSE, URINE (UA) NEGATIVE (NEGATIVE); KETONES,URINE (UA) NEGATIVE (NEGATIVE); LEUKOCYTE ESTERASE, URINE NEGATIVE (NEGATIVE); NITRITE,URINE NEGATIVE (NEGATIVE); OCCULT BLOOD,URINE NEGATIVE (NEGATIVE); PROTEIN,URINE TRACE mg/dL (NEGATIVE); UROBILINOGEN,URINE 0.2 (NORMAL) E.U./dL (NORMAL)
[2023-09-07 11:52] LABS: BACTERIA,URINE None Seen /HPF (None Seen); CLARITY,URINE CLEAR (CLEAR); RBC,URINE None Seen /HPF (0-5); SQUAMOUS EPITHELIAL CELL,UR NONE SEEN (<= Few); WBC,URINE 0-3 /HPF (0-3)
== END 2023-09-07 11:12 | disposition home or self-care (01) ==
LOC: LAB 11:11
PROVIDERS: ATTEND Internal Medicine
DX: R41.82 Altered mental status, unspecified (principal)
CPT/HCPCS: 81001; 87086

== ENCOUNTER 2023-09-10 07:50 | Emergency (ER) | payer MEDICARE ==
[2023-09-10 07:59] VITALS: O2SAT 95
--- NOTE | 2023-09-10 08:07 | ED Physician Documentation ---
PD HPI DYSPNEA - Stated complaint Stated Complaint: SOA - Chief complaint Chief Complaint: Resp - History obtained from History obtained from: Patient - History of Present Illness Timing - onset: How many days ago (several days to a week of increased wheezing and dyspnea.) Timing - onset during: Light activity Timing - duration: Days Timing - details: Gradual onset, Still present Inciting event(s): Out of meds (he is out of his Zopenex for his nebulizer. Refill for usual Rx not available until next week.) Improved by: Inhaler/neb Worsened by: Coughing Associated symptoms: Cough, Wheezing. No: Fever, Hemoptysis Similar symptoms before: Diagnosis (COPD) Review of Systems Constitutional: denies: Fever, Chills Musculoskeletal: reports: Back pain (left lower lumbar/ SI area.), Other (In addition to his wheezing and dyspnea he complains of right lateral elbow pain after a fall couple of weeks ago. Also left low back pain.) PD PAST MEDICAL HISTORY - Past Medical History Past Medical History: Yes Cardiovascular: Hypertension, Coronary artery disease, CT, Atrial fibrillation, Murmur, Other Respiratory: Asthma, COPD Neuro: Headaches Endocrine/Autoimmune: Type 2 diabetes GI: GERD, Hiatal hernia, Diverticulitis : Benign prostate hypertrophy, Nocturia HEENT: Chronic sinusitis, Chronic hearing loss Psych: Depression, Anxiety, Claustrophobia Musculoskeletal: Osteoarthritis, Chronic back pain, Other Derm: Herpes zoster, Other - Past Surgical History Past Surgical History: Yes General: Cholecystectomy, EGD Ortho: Hip replacement, Knee replacement, Arthroscopic surgery, Other Cardiovascular: CABG, Other HEENT: Other - Present Medications Home Medications: Ambulatory Orders Medication Instructions Recorded Confirmed Levalbuterol Tartrate [Xopenex Hfa] 2 puffs INH Q4H PRN 06/21/17 09/10/23 traZODone [Desyrel] 400 mg PO QPM 06/21/17 09/10/23 Metoprolol Tartrate 50 mg PO DAILY 08/01/17 09/10/23 Acetaminophen/Cod 300/30 [Tylenol 1 each PO Q6H PRN #20 tablet 09/28/19 09/10/23 #3] Furosemide 20 mg PO DAILY PRN 07/13/20 09/10/23 Omeprazole 20 mg PO DAILY 07/13/20 09/10/23 glipiZIDE [Glipizide ER] 2.5 mg PO DAILY 04/27/22 09/10/23 Isosorbide Mononitrate 10 mg PO DAILY 09/13/22 09/10/23 Brimonidine 0.2% Ophth Drops 75 drops EACHEYE BID 12/25/22 09/10/23 [Alphagan P 0.2% Ophth Drops] Latanoprost/Pf [Latanoprost 0.005% 7.5 ml OP HS 12/25/22 09/10/23 Eye Drop] Lisinopril [Zestril] 40 mg PO DAILY 12/25/22 09/10/23 Prochlorperazine Maleate 10 mg PO Q6H PRN #15 tablet 06/28/23 08/03/23 [Compazine] Sumatriptan Succinate [Imitrex] 50 mg PO Q6H PRN #10 tablet 06/28/23 09/10/23 Ondansetron Odt [Zofran] 4 mg TL Q6H PRN #10 tablet 07/07/23 09/10/23 Mupirocin Calcium [Mupirocin] See Rx Instructions .ROUTE 08/03/23 09/10/23 .COMPLEX #30 gm Doxycycline Monohydrate 100 mg PO BID 14 Days #28 cap 08/09/23 09/10/23 predniSONE [Deltasone] 20 mg PO [id number] #21 tab 08/11/23 09/10/23 Diclofenac Sodium 1% Gel [Voltaren 2 gm TOP QID PRN #50 gm 09/10/23 Gel] Levalbuterol [Xopenex] 1.25 mg INH Q8H PRN #30 ea 09/10/23 Lidocaine 1 each TP DAILY PRN #10 patch 09/10/23 - Allergies Allergies/Adverse Reactions: Allergies Allergy/AdvReac Type Severity Reaction Status Date / Time pantoprazole sodium * Allergy Intermediate Nausea Verified 09/10/23 07:59 [From Protonix] Sizycdg-FGC-TiG Reductase Allergy Intermediate Unknown Verified 09/10/23 07:59 Inhibitor [Dxoeior-Jtz-Bqa Reductase Inhibitor] Sulfa (Sulfonamide Allergy Intermediate Rash Verified 09/10/23 07:59 Antibiotics) latex Allergy Mild Itching Verified 09/10/23 07:59 fentanyl Allergy Hallucinati Verified 09/10/23 07:59 ons hydromorphone [From Dilaudid] Allergy Anxiety Verified 09/10/23 07:59 albuterol AdvReac Severe heart Verified 09/10/23 07:59 palpatation diazepam [From Valium] AdvReac Severe DELIRIUM Verified 09/10/23 07:59 gabapentin AdvReac Hallucinati Verified 09/10/23 07:59 ons hydrocodone [From [place]] AdvReac Anxiety Verified 09/10/23 07:59 morphine AdvReac Anxiety Verified 09/10/23 07:59 - Social History Does the pt smoke?: No Smoking Status: Never smoker Does the pt drink ETOH?: No Does the pt have substance abuse?: No - Immunizations Immunizations are current?: Yes - POLST Patient has POLST: No POLST Status: Full Code PD ED PE NORMAL - Vitals Vital signs reviewed: Yes - General General: Alert and oriented X 3, No acute distress, Well developed/nourished - Cardiac Cardiac: RRR, No murmur - Respiratory Respiratory: No respiratory distress. No: Clear bilaterally (no coarse sounds. Does have exp wheezing diffusely. ) - Back Back: No spinal TTP (he does have tenderness at left SI area without redness/swelling. Focal fingertip area of tenderness. Injected locally. ) - Derm Derm: Normal color, Warm and dry - Extremities Extremities: Other (right elbow tender at lateral condyle without redness/swelling. No pain with supination/pronation and not tender at radial head area. Pain with extension of elbow. ) - Neuro Neuro: Alert and oriented X 3, No motor deficit, No sensory deficit, Normal speech Results - Vitals Vitals: Vital Signs - 24 hr 09/10/23 09/10/23 09/10/23 07:54 08:53 09:31 Temperature 36.0 C L 36.4 C L Heart Rate 70 84 65 Respiratory 20 20 18 Rate Blood Pressure 182/85 H 152/91 H O2 Saturation 95 95 Oxygen O2 Source [With Activity] Room air O2 Source Room air - Rads (name of study) right elbow Relevant Findings:: Prelim report reviewed (small effusion. possible deformity at radial neck. ), EMP independent interpretation of test PD Medical Decision Making - ED course Complexity details: reviewed old records ([facility] form stating multiple visits and shows regular Rx for opioids. He does get regular T#3 from [facility]D and not from others. ), reviewed results (right elbow xray with some effusion and possible deformity at radial head. However this is over 2 weeks old and should show up better if was occult fracture, so I believe sprain. He is tender at lateral condyle and does not have pain with supination/pronation. ), considered differential, d/w patient ED course: The patient has a history of COPD and is out of his Xopenex medication at home. I can provide a refill for him. He also while here complained of pain in his low back. This is a fairly chronic problem but has flared up recently. He is tender in his upper SI joint. There is no rash or sores. No sciatic type symptoms per se. Given the focal area of tenderness, I did offer a local injection with some lidocaine and Kenalog. He was agreeable and this was done without any problems into the soft tissue at the SI joint. He also complained of pain in the lateral condyle of the elbow after fall 2 weeks ago. Pain with supination and pronation and extension at the elbow. There is tenderness locally there. No redness or swelling. Probably some epicondylitis related to a strain injury. X-ray was done which did not show any bony abnormalities. The patient was hinting towards needing stronger pain medicines. He has had multiple visits here and in the past we have been firm about no opiates. He did not push any more towards that and was agreeable with the local treatments. He was given a nebulizer treatment here to help with the current wheezing. Departure - Departure Disposition: 01 Home, Self Care Clinical Impression: Dyspnea, Acute exacerbation of COPD with asthma, Sacroiliac joint pain, Elbow pain Condition: Stable Record reviewed to determine appropriate education?: Yes Prescriptions: Lidocaine 1 each TP DAILY PRN #10 patch PRN Reason: Pain 5-7 Diclofenac Sodium 1% Gel [Voltaren Gel] 2 gm TOP QID PRN #50 gm PRN Reason: Pain 5-7 Levalbuterol [Xopenex] 1.25 mg INH Q8H PRN #30 ea PRN Reason: Wheezing Comments: Use your leave albuterol/Xopenex 4 times daily as needed for wheezing. Consider it regularly for the next several days to week. Started on the steroids and antibiotic prescribed by your lung doctor. Recheck if not improving well over the next several days. Your elbow x-ray does show some mild arthritic changes around the bones of the elbow. It does not appear significant. Your pain at the elbow more likely is some irritation of the tendon attachment of the muscles in that area. Try the Voltaren gel small amounts to their 2-3 times daily over the next week and see if that is helpful. Your left low back pain is in the area of the joining of some of the pelvic bones (sacroiliac joint). I did do an injection in that area with some anti- inflammatory steroid medicine. You can also use lidocaine patches over the area. I sent prescriptions to your [facility] in [place]. Follow-up with your primary care. Forms: PCP List Discharge Date/Time: 09/10/23 09:32
[2023-09-10] MEDS: KETOROLAC 30 MG/ML VIAL IM STA (08:44)
[2023-09-10] MEDS: LEVALBUTEROL 1.25 MG/3 ML NEB INH STA (08:51)
[2023-09-10] MEDS: TRIAMCINOLONE 40 MG/ML VIAL MC STA (09:03)
--- NOTE | 2023-09-10 09:18 | XRAY Report ---
PROCEDURE: Elbow 3+V RT INDICATIONS: fall couple months ago, persistent lat elbow pain TECHNIQUE: 3 views of the elbow were acquired. COMPARISON: None. FINDINGS: Bones: Mild to moderate degenerative changes. No displaced fracture or dislocation. Possible nondispl aced deformity at the radial head/neck. Soft tissues: Elbow joint effusion is present. IMPRESSION: Elbow joint effusion without displaced fracture. There may be a nondisplaced deformity at the radial head/neck. If there is high concern for further derangement, consider MRI evaluation. Reviewed by: José Miguel Bragg MD on 09/10/2023 9:17 AM [facility] Approved by: José Miguel Bragg MD on 09/10/2023 9:17 AM [facility] Station ID: [id number]
[2023-09-10 09:34] VITALS: BP 152/91
== END 2023-09-10 09:32 | disposition home or self-care (01) ==
LOC: ED 07:50
DX: J44.1 Chronic obstructive pulmonary disease with (acute) exacerbation (principal); M25.521 Pain in right elbow; M53.3 Sacrococcygeal disorders, not elsewhere classified; I10 Essential (primary) hypertension; I25.10 Atherosclerotic heart disease of native coronary artery without angina pectoris; I25.2 Old myocardial infarction; I48.91 Unspecified atrial fibrillation; E11.9 Type 2 diabetes mellitus without complications; Z79.899 Other long term (current) drug therapy; Z79.84 Long term (current) use of oral hypoglycemic drugs
CPT/HCPCS: 94640; 96372; 99284

== ENCOUNTER 2023-09-15 09:47 | Emergency (ER) | payer MEDICARE ==
[2023-09-15 10:21] LABS: BASOPHILS # (AUTO) 0.1 10^3/uL (0.0-0.1); BASOPHILS % (AUTO) 0.7 %; EOSINOPHILS # (AUTO) 0.1 10^3/uL (0.0-0.7); EOSINOPHILS % (AUTO) 1.9 %; HCT - HEMATOCRIT 42.1 % (42.0-52.0); HGB - HEMOGLOBIN 13.6 g/dL (14.0-18.0); LYMPHOCYTES % (AUTO) 15.3 %; MEAN CORPUSCULAR HEMOGLOBIN 29.5 pg (27.0-31.0); MEAN CORPUSCULAR HGB CONC 32.3 g/dL (32.0-36.0); MEAN CORPUSCULAR VOLUME 91.3 fL (80.0-94.0); MEAN PLATELET VOLUME 8.5 fL (7.4-11.4); MONOCYTES # (AUTO) 0.7 10^3/uL (0.0-1.0); MONOCYTES % (AUTO) 9.9 %; NEUTROPHILS # (AUTO) 4.9 10^3/uL (1.5-6.6); NEUTROPHILS % (AUTO) 71.9 %; PLT - PLATELET COUNT 299 10^3/uL (130-450); RED BLOOD COUNT 4.61 10^6/uL (4.70-6.10); RED CELL DISTRIBUTION WIDTH 12.5 % (12.0-15.0); WHITE BLOOD COUNT 6.8 x10^3/uL (4.8-10.8)
--- NOTE | 2023-09-15 10:23 | ED Physician Documentation ---
PD HPI ABD PAIN - Stated complaint Stated Complaint: RT SIDE PX - Chief complaint Chief Complaint: Abd Pain - History obtained from History obtained from: Patient, Family - Additional information Additional information: The patient comes to the emergency department with his for chief complaint of right lower quadrant abdominal pain that started yesterday. He states he has been having diarrhea for a day or 2 preceding this but after taking Imodium yesterday, the diarrhea stopped. He denies fevers or chills. Mild nausea no vomiting. No blood in his stools. No urinary symptoms. The patient states that he has a history of cholecystectomy but not appendectomy. No respiratory symptoms. He was seen here several days ago for difficulty breathing but states that has resolved. No other complaints at this time. PD PAST MEDICAL HISTORY - Past Medical History Past Medical History: Yes Cardiovascular: Hypertension, Coronary artery disease, [place], Atrial fibrillation, Murmur, Other Respiratory: Asthma, COPD Neuro: Headaches Endocrine/Autoimmune: Type 2 diabetes GI: GERD, Hiatal hernia, Diverticulitis : Benign prostate hypertrophy, Nocturia HEENT: Chronic sinusitis, Chronic hearing loss Psych: Depression, Anxiety, Claustrophobia Musculoskeletal: Osteoarthritis, Chronic back pain, Other Derm: Herpes zoster, Other - Past Surgical History Past Surgical History: Yes General: Cholecystectomy, EGD Ortho: Hip replacement, Knee replacement, Arthroscopic surgery, Other Cardiovascular: CABG, Other HEENT: Other - Present Medications Home Medications: Ambulatory Orders Medication Instructions Recorded Confirmed Levalbuterol Tartrate [Xopenex Hfa] 2 puffs INH Q4H PRN 06/21/17 09/10/23 traZODone [Desyrel] 400 mg PO QPM 06/21/17 09/10/23 Metoprolol Tartrate 50 mg PO DAILY 08/01/17 09/10/23 Acetaminophen/Cod 300/30 [Tylenol 1 each PO Q6H PRN #20 tablet 09/28/19 09/10/23 #3] Furosemide 20 mg PO DAILY PRN 07/13/20 09/10/23 Omeprazole 20 mg PO DAILY 07/13/20 09/10/23 glipiZIDE [Glipizide ER] 2.5 mg PO DAILY 04/27/22 09/10/23 Isosorbide Mononitrate 10 mg PO DAILY 09/13/22 09/10/23 Brimonidine 0.2% Ophth Drops 75 drops EACHEYE BID 12/25/22 09/10/23 [Alphagan P 0.2% Ophth Drops] Latanoprost/Pf [Latanoprost 0.005% 7.5 ml OP HS 12/25/22 09/10/23 Eye Drop] Lisinopril [Zestril] 40 mg PO DAILY 12/25/22 09/10/23 Prochlorperazine Maleate 10 mg PO Q6H PRN #15 tablet 06/28/23 08/03/23 [Compazine] Sumatriptan Succinate [Imitrex] 50 mg PO Q6H PRN #10 tablet 06/28/23 09/10/23 Ondansetron Odt [Zofran] 4 mg TL Q6H PRN #10 tablet 07/07/23 09/10/23 Mupirocin Calcium [Mupirocin] See Rx Instructions .ROUTE 08/03/23 09/10/23 .COMPLEX #30 gm Doxycycline Monohydrate 100 mg PO BID 14 Days #28 cap 08/09/23 09/10/23 predniSONE [Deltasone] 20 mg PO [id number] #21 tab 08/11/23 09/10/23 Diclofenac Sodium 1% Gel [Voltaren 2 gm TOP QID PRN #50 gm 09/10/23 Gel] Levalbuterol [Xopenex] 1.25 mg INH Q8H PRN #30 ea 09/10/23 Lidocaine 1 each TP DAILY PRN #10 patch 09/10/23 Levalbuterol [Xopenex] 1.25 mg IH Q8H #30 ea 09/11/23 - Allergies Allergies/Adverse Reactions: Allergies Allergy/AdvReac Type Severity Reaction Status Date / Time pantoprazole sodium * Allergy Intermediate Nausea Verified 09/15/23 10:15 [From Protonix] Eslkgzd-ERI-PwG Reductase Allergy Intermediate Unknown Verified 09/15/23 10:15 Inhibitor [Abpxgqr-Hca-Bfj Reductase Inhibitor] Sulfa (Sulfonamide Allergy Intermediate Rash Verified 09/15/23 10:15 Antibiotics) latex Allergy Mild Itching Verified 09/15/23 10:15 fentanyl Allergy Hallucinati Verified 09/15/23 10:15 ons hydromorphone [From Dilaudid] Allergy Anxiety Verified 09/15/23 10:15 albuterol AdvReac Severe heart Verified 09/15/23 10:15 palpatation diazepam [From Valium] AdvReac Severe DELIRIUM Verified 09/15/23 10:15 gabapentin AdvReac Hallucinati Verified 09/15/23 10:15 ons hydrocodone [From [place]] AdvReac Anxiety Verified 09/15/23 10:15 morphine AdvReac Anxiety Verified 09/15/23 10:15 - Social History Does the pt smoke?: No Smoking Status: Never smoker Does the pt drink ETOH?: No Does the pt have substance abuse?: No - Immunizations Immunizations are current?: Yes - POLST Patient has POLST: No POLST Status: Full Code PD ED PE NORMAL - Vitals Vital signs reviewed: Yes - General General: Alert and oriented X 3, No acute distress, Well developed/nourished, Other (The patient appears mildly uncomfortable but otherwise no apparent distress.) - HEENT HEENT: Atraumatic, PERRL, EOMI, Moist mucous membranes - Neck Neck: Supple, no meningeal sign - Cardiac Cardiac: RRR, No murmur, Strong equal pulses - Respiratory Respiratory: No respiratory distress, Clear bilaterally - Abdomen Abdomen: Soft, Non distended, Other (Moderate right lower quadrant tenderness, no rebound or guarding.) - Derm Derm: Normal color, Warm and dry, No rash - Extremities Extremities: No deformity, No edema - Neuro Neuro: Alert and oriented X 3, Other (Grossly intact) - Psych Psych: Normal mood, Normal affect Results - Vitals Vitals: Vital Signs - 24 hr 09/15/23 09/15/23 09/15/23 09:59 11:30 12:38 Temperature 36.3 C L Heart Rate 90 85 80 Respiratory 18 18 16 Rate Blood Pressure 146/71 H 126/112 H 135/106 H O2 Saturation 95 95 98 Oxygen O2 Source [With Activity] Room air O2 Source Room air - Labs Labs: Laboratory Tests 09/15/23 09/15/23 10:16 10:16 WBC 6.8 RBC 4.61 L Hgb 13.6 L Hct 42.1 MCV 91.3 MCH 29.5 MCHC 32.3 RDW 12.5 Plt Count 299 MPV 8.5 Neut # (Auto) 4.9 Lymph # (Auto) 1.0 L [place] # (Auto) 0.7 Eos # (Auto) 0.1 Baso # (Auto) 0.1 Absolute Nucleated RBC 0.00 Nucleated RBC % 0.0 Sodium 138 Potassium 3.9 Chloride 100 L Carbon Dioxide 30 Anion Gap 8.0 BUN 16 Creatinine 0.8 Estimated GFR (MDRD) 93 Glucose 126 H Calcium 9.6 Total Bilirubin 0.7 AST 23 ALT 25 Alkaline Phosphatase 57 Total Protein 7.0 Albumin 4.2 Globulin 2.8 Albumin/Globulin Ratio 1.5 Lipase 31 PD Medical Decision Making - ED course Complexity details: reviewed old records, reviewed results, re-evaluated patient, considered differential, d/w patient, d/w family ED course: The patient was evaluated in the emergency department with labs and CT of the abdomen and pelvis with IV contrast. The patient is very well-known to emergency department and is frequently here for some sort of pain complaint. He was given doses of droperidol, Decadron, and Toradol. The patient's labs and CT scan were negative and I feel he was stable for discharge. He did not feel that any of the medication that I given him had helped at all and I discussed with him that I would not be giving any narcotics in the ED or as a prescription. The patient excepted this willingly. I have discussed with him that I do not know what is causing his abdominal pain but that no emergent condition has been identified. The patient has chronic pain that takes many forms in many locations around his body and I discussed with him that I cannot explain why he has so much pain. The patient is stable for discharge home and will be driven home by his . Departure - Departure Disposition: 01 Home, Self Care Clinical Impression: Abdominal pain Qualifiers: Abdominal location: right lower quadrant Qualified Code(s): R10.31 - Right lower quadrant pain Condition: Stable Instructions: ED Abdominal Pain Unkn Cause Male Comments: Your laboratory studies look great today and your CT scan does not show any acute findings. It is not clear why you are having the pain in your abdomen today. Given your issues with chronic pain and chronic narcotic use, it is our policy that unless you have an acute emergent finding that necessitates narcotics for pain control, that we will not be giving narcotics from the emergency department. As such, you will need to talk to your primary doctor if you feel that your home pain needs are not being met. Please make the next available appointment to follow-up. Forms: PCP List Discharge Date/Time: 09/15/23 12:39
[2023-09-15] MEDS: SODIUM CHLORIDE 0.9% 1,000 ML IV STA (10:33)
[2023-09-15] MEDS: DROPERIDOL 5 MG/2 ML VIAL IVP STA (10:33)
[2023-09-15] MEDS: KETOROLAC 30 MG/ML VIAL IVP STA (10:33)
[2023-09-15] MEDS: DEXAMETHASONE 10 MG/ML VIAL IV STA (10:33)
[2023-09-15 10:40] LABS: ALBUMIN 4.2 g/dL (3.2-5.5); ALBUMIN/GLOBULIN RATIO 1.5 (1.0-2.2); BILIRUBIN,TOTAL 0.7 mg/dL (0.2-1.0); CALCIUM 9.6 mg/dL (8.5-10.3); CREATININE 0.8 mg/dL (0.6-1.3); POTASSIUM 3.9 mmol/L (3.5-4.5)
[2023-09-15] MEDS ORDERED: iohexoL-300 100 ML VIAL ONE (11:23)
--- NOTE | 2023-09-15 12:18 | CT Report ---
PROCEDURE: Abdomen/Pelvis W INDICATIONS: rlq pain CONTRAST: Omni 300 100ml TECHNIQUE: After the administration of intravenous contrast, a CT scan of the abdomen and pelvis was performed. Images were recorded and evaluated at appropriate window settings. Reformats: coronal and sagittal. F or radiation dose reduction, the following was used: automated exposure control, adjustment of mA and /or kV according to patient size. COMPARISON: None. FINDINGS: Image quality: Diagnostic. Lower chest: Unremarkable. Liver: Mild diffuse hepatic steatosis. No focal mass. Gallbladder and biliary tree: Surgically absent. No biliary dilation, accounting for post-cholecystec silvia state. The Spleen: No splenomegaly. Pancreas: No pancreatic ductal dilation. Adrenals: No adrenal nodule. Kidneys and ureters: No hydronephrosis. No renal cystic lesion which requires follow up. No solid mas s. Stomach, bowel and peritoneum: Extensive sigmoid diverticulosis without evidence of diverticulitis. T here is a normal appendix present. Lymph nodes: No central or retroperitoneal adenopathy. Vessels: No infrarenal aortic aneurysm. PELVIS Reproductive organs: Uterus is surgically absent. Bladder: No abnormal wall thickening, accounting for underdistention. Pelvic lymph nodes: No pelvic adenopathy by size criteria. Bones: No aggressive osseous abnormality. Bilateral total hip arthroplasties. Remote multilevel poste rior decompression and posterior lateral akbar and pedicle screw fixation in the lumbar region. Other: No significant ventral or inguinal hernia. IMPRESSION: 1. Extensive sigmoid diverticulosis without evidence of diverticulitis. 2. Normal appendix. 3. No acute abdominal process noted. 4. Remote cholecystectomy and hysterectomy. Reviewed by: Tl Jaimes MD on 09/15/2023 12:17 PM PST Approved by: Tl Jaimes MD on 09/15/2023 12:17 PM PST Station ID: [id number]
[2023-09-15 12:40] VITALS: BP 135/106; O2SAT 98
[2023-09-15] MEDS: iohexoL-300 100 ML VIAL IVP ONE (12:48)
== END 2023-09-15 12:39 | disposition home or self-care (01) ==
LOC: ED 09:47
DX: R10.31 Right lower quadrant pain (principal); I10 Essential (primary) hypertension; I48.91 Unspecified atrial fibrillation; J44.9 Chronic obstructive pulmonary disease, unspecified; E11.9 Type 2 diabetes mellitus without complications; Z79.899 Other long term (current) drug therapy; Z79.84 Long term (current) use of oral hypoglycemic drugs; Z91.040 Latex allergy status
CPT/HCPCS: 36415; 74177; 80053; 83690; 85025; 96374; 99283; 99284; Q9967

== ENCOUNTER 2023-09-27 05:29 | Outpatient (CLI) | payer MEDICARE | END 2023-09-27 05:30 | disposition critical access hospital (66) | LOC: EMS 05:29 | DX: R10.33 Periumbilical pain (principal); R10.30 Lower abdominal pain, unspecified | CPT/HCPCS: A0425; A0429 ==

== ENCOUNTER 2023-09-27 05:43 | Emergency (ER) | payer MEDICARE ==
--- NOTE | 2023-09-27 05:56 | ED Physician Documentation ---
PD HPI ABD PAIN - Stated complaint Stated Complaint: ABD PX - Chief complaint Chief Complaint: Abd Pain - History obtained from History obtained from: Patient, EMS - Additional information Additional information: 78-year-old male with history of coronary disease, anxiety, chronic pain, multiple visits to the emergency department (25 visits in 12 months) for various complaints presents by EMS from home for abdominal pain. Patient states that the pain is located periumbilical, lower abdominal, right lower quadrant. States that he was seen at [facility] this week for same complaint. He states that he was diagnosed with "an impacted bowel" and was given a "GI kit". He states that he took the kit and now his bowels are moving regularly, however he continues to have pain on the right side. Of note, patient was seen here in our emergency department on 09/15/2023 for exact same complaint, CT at that time showed diverticulosis without diverticulitis, no other acute intra-abdominal process. Review of Systems Constitutional: denies: Fever, Chills GI: reports: Abdominal Pain. denies: Nausea, Vomiting, Constipation, Diarrhea Musculoskeletal: denies: Neck pain, Back pain, Extremity pain Neurologic: denies: Generalized weakness, Focal weakness, Numbness PD PAST MEDICAL HISTORY - Past Medical History Cardiovascular: Hypertension, Coronary artery disease, [place], Atrial fibrillation, Murmur, Other Respiratory: Asthma, COPD Neuro: Headaches Endocrine/Autoimmune: Type 2 diabetes GI: GERD, Hiatal hernia, Diverticulitis : Benign prostate hypertrophy, Nocturia HEENT: Chronic sinusitis, Chronic hearing loss Psych: Depression, Anxiety, Claustrophobia Musculoskeletal: Osteoarthritis, Chronic back pain, Other Derm: Herpes zoster, Other - Past Surgical History Past Surgical History: Yes General: Cholecystectomy, EGD Ortho: Hip replacement, Knee replacement, Arthroscopic surgery, Other Cardiovascular: CABG, Other HEENT: Other - Present Medications Home Medications: Ambulatory Orders Medication Instructions Recorded Confirmed Levalbuterol Tartrate [Xopenex Hfa] 2 puffs INH Q4H PRN 06/21/17 09/10/23 traZODone [Desyrel] 400 mg PO QPM 06/21/17 09/10/23 Metoprolol Tartrate 50 mg PO DAILY 08/01/17 09/10/23 Acetaminophen/Cod 300/30 [Tylenol 1 each PO Q6H PRN #20 tablet 09/28/19 09/10/23 #3] Furosemide 20 mg PO DAILY PRN 07/13/20 09/10/23 Omeprazole 20 mg PO DAILY 07/13/20 09/10/23 glipiZIDE [Glipizide ER] 2.5 mg PO DAILY 04/27/22 09/10/23 Isosorbide Mononitrate 10 mg PO DAILY 09/13/22 09/10/23 Brimonidine 0.2% Ophth Drops 75 drops EACHEYE BID 12/25/22 09/10/23 [Alphagan P 0.2% Ophth Drops] Latanoprost/Pf [Latanoprost 0.005% 7.5 ml OP HS 12/25/22 09/10/23 Eye Drop] Lisinopril [Zestril] 40 mg PO DAILY 12/25/22 09/10/23 Prochlorperazine Maleate 10 mg PO Q6H PRN #15 tablet 06/28/23 08/03/23 [Compazine] Sumatriptan Succinate [Imitrex] 50 mg PO Q6H PRN #10 tablet 06/28/23 09/10/23 Ondansetron Odt [Zofran] 4 mg TL Q6H PRN #10 tablet 07/07/23 09/10/23 Mupirocin Calcium [Mupirocin] See Rx Instructions .ROUTE 08/03/23 09/10/23 .COMPLEX #30 gm Doxycycline Monohydrate 100 mg PO BID 14 Days #28 cap 08/09/23 09/10/23 predniSONE [Deltasone] 20 mg PO [id number] #21 tab 08/11/23 09/10/23 Diclofenac Sodium 1% Gel [Voltaren 2 gm TOP QID PRN #50 gm 09/10/23 Gel] Levalbuterol [Xopenex] 1.25 mg INH Q8H PRN #30 ea 09/10/23 Lidocaine 1 each TP DAILY PRN #10 patch 09/10/23 Levalbuterol [Xopenex] 1.25 mg IH Q8H #30 ea 09/11/23 - Allergies Allergies/Adverse Reactions: Allergies Allergy/AdvReac Type Severity Reaction Status Date / Time pantoprazole sodium * Allergy Intermediate Nausea Verified 09/27/23 05:53 [From Protonix] Voybara-SSB-HgW Reductase Allergy Intermediate Unknown Verified 09/27/23 05:53 Inhibitor [Xlnpgvf-Thr-Oin Reductase Inhibitor] Sulfa (Sulfonamide Allergy Intermediate Rash Verified 09/27/23 05:53 Antibiotics) latex Allergy Mild Itching Verified 09/27/23 05:53 fentanyl Allergy Hallucinati Verified 09/27/23 05:53 ons hydromorphone [From Dilaudid] Allergy Anxiety Verified 09/27/23 05:53 albuterol AdvReac Severe heart Verified 09/27/23 05:53 palpatation diazepam [From Valium] AdvReac Severe DELIRIUM Verified 09/27/23 05:53 gabapentin AdvReac Hallucinati Verified 09/27/23 05:53 ons hydrocodone [From [place]] AdvReac Anxiety Verified 09/27/23 05:53 morphine AdvReac Anxiety Verified 09/27/23 05:53 - Social History Does the pt smoke?: No Smoking Status: Never smoker Does the pt drink ETOH?: No Does the pt have substance abuse?: No - Immunizations Immunizations are current?: Yes - POLST Patient has POLST: No POLST Status: Full Code PD ED PE NORMAL - Vitals Vital signs reviewed: Yes - General General: Alert and oriented X 3, No acute distress - Cardiac Cardiac: RRR, Strong equal pulses - Abdomen Abdomen: Soft, Other (when patient distracted there is no tenderness to light or deep palpation. Patient has varying locations of max tenderness depending on who asks him where pain is located) Results - Vitals Vitals: Vital Signs - 24 hr 09/27/23 05:49 Temperature 36.4 C L Heart Rate 61 Respiratory 20 Rate Blood Pressure 180/84 H O2 Saturation 97 Oxygen O2 Source [With Activity] Room air O2 Source Room air - Labs Labs: Laboratory Tests 09/27/23 06:18 Sodium 136 Potassium 4.0 Chloride 102 Carbon Dioxide 28 Anion Gap 6.0 BUN 15 Creatinine 0.7 Estimated GFR (MDRD) 109 Glucose 94 Calcium 8.8 Total Bilirubin 0.4 AST 34 ALT 28 Alkaline Phosphatase 61 Total Protein 6.4 Albumin 3.8 Globulin 2.6 Albumin/Globulin Ratio 1.5 Lipase 37 PD Medical Decision Making - ED course Complexity details: reviewed old records, reviewed results, re-evaluated patient, considered differential, d/w patient ED course: Nontoxic-appearing patient with numerous ED visits within the last 2 weeks presenting for recurrent right-sided abdominal pain. I was able to obtain records from [facility], he was seen 09/22/2023 underwent laboratory work and repeat CT imaging that showed moderate fecal burden on the right-hand side, however again there was no other acute process. Patient's abdominal pain is inconsistent, when patient is distracted he has no pain, patient will change location of maximal pain when asked on several occasions. Vital signs reviewed. At this time based on patient's clinical presentation is well as to negative CT abdomen pelvis is within the last 12 days I do not feel as though repeat imaging is indicated at this time. Plan to order lab work, droperidol. If there is any marked laboratory work abnormality then can reconsider indications for imaging. Laboratory work is still pending. Care of patient to be signed out to morning ER doctor Departure - Departure Clinical Impression: Abdominal pain Condition: Stable Instructions: Abdominal Pain Comments: I recommend following up with Dr. Calero for your recurrent abdominal pain. Take your home pain medications and make sure you are taking a daily stool softener as this can lead to constipation Forms: PCP List
[2023-09-27] MEDS: DROPERIDOL 5 MG/2 ML VIAL IVP STA (06:25)
[2023-09-27 06:28] LABS: BASOPHILS # (AUTO) 0.1 10^3/uL (0.0-0.1); BASOPHILS % (AUTO) 0.8 %; EOSINOPHILS # (AUTO) 0.1 10^3/uL (0.0-0.7); EOSINOPHILS % (AUTO) 1.9 %; HCT - HEMATOCRIT 36.9 % (42.0-52.0); HGB - HEMOGLOBIN 11.8 g/dL (14.0-18.0); LYMPHOCYTES # (AUTO) 1.2 10^3/uL (1.5-3.5); LYMPHOCYTES % (AUTO) 18.5 %; MEAN CORPUSCULAR HEMOGLOBIN 29.4 pg (27.0-31.0); MEAN CORPUSCULAR VOLUME 91.8 fL (80.0-94.0); MEAN PLATELET VOLUME 8.9 fL (7.4-11.4); MONOCYTES # (AUTO) 0.9 10^3/uL (0.0-1.0); MONOCYTES % (AUTO) 13.8 %; NEUTROPHILS # (AUTO) 4.1 10^3/uL (1.5-6.6); NEUTROPHILS % (AUTO) 64.7 %; PLT - PLATELET COUNT 219 10^3/uL (130-450); RED BLOOD COUNT 4.02 10^6/uL (4.70-6.10); RED CELL DISTRIBUTION WIDTH 12.7 % (12.0-15.0); WHITE BLOOD COUNT 6.4 x10^3/uL (4.8-10.8)
[2023-09-27 06:41] LABS: ALBUMIN 3.8 g/dL (3.2-5.5); ALBUMIN/GLOBULIN RATIO 1.5 (1.0-2.2); BILIRUBIN,TOTAL 0.4 mg/dL (0.2-1.0); CALCIUM 8.8 mg/dL (8.5-10.3); CREATININE 0.7 mg/dL (0.6-1.3); TOTAL PROTEIN 6.4 g/dL (6.4-8.9)
[2023-09-27] MEDS: KETOROLAC 15 MG/ML VIAL IVP STA (06:58)
[2023-09-27] MEDS: ACETAMINOPHEN 1,000 MG/100 ML 1,000 MG/100 ML BAG IV ONE (07:28)
[2023-09-27 07:30] VITALS: BP 165/82; O2SAT 100
--- NOTE | 2023-09-27 09:03 | XRAY Report ---
PROCEDURE: Abdomen 1 V INDICATIONS: ABD PAIN TECHNIQUE: One view of the abdomen acquired. COMPARISON: CT abdomen pelvis 09/15/2023 FINDINGS: Surgical changes and devices: Median sternotomy wires. Lumbar spine hardware. Cholecystectomy clips. Bilateral hip arthroplasties. Surgical clips projecting over the pelvis.. Bowel: Bowel gas pattern is normal. Large burden of stool. Soft tissues: No suspicious abdominal calcifications. Visualized solid organ contours appear normal in size. Bones: No suspicious bony lesions. IMPRESSION: Large burden of stool suggestive of constipation. Nonobstructive bowel gas pattern. Findings are concordant with preliminary interpretation provided by [facility]. Reviewed by: Yemi Oneill MD on 09/27/2023 9:02 AM PST Approved by: Yemi Oneill MD on 09/27/2023 9:02 AM PST Station ID: [id number]
--- NOTE | 2023-10-12 21:13 | ED Physician Documentation ---
ED Addendum - Addendum Addendum: 10/12/23 21:11 Pt signed out to me at change of shift, pending re-evaluation and labs. Labs were unremarkable. The pt was desirous that he receive "something stronger" for pain, and I have discussed with him that with his frequency of visits for pain and his history of escalating behaviorally if he doesn't get the medicines he wants, we will not be giving him any narcotic pain medication unless we have a concrete finding to indicate this. The pt expresses understanding. He is s table for d/c home. We have discussed the need for PCP and chronic pain management follow-up. Final impression: ABdominal pain Disposition: home in stable condition. 10/12/23 21:14
== END 2023-09-27 07:28 | disposition home or self-care (01) ==
LOC: EDUNIT# → ED 05:43
DX: R10.33 Periumbilical pain (principal); I10 Essential (primary) hypertension; I25.10 Atherosclerotic heart disease of native coronary artery without angina pectoris; E11.9 Type 2 diabetes mellitus without complications; Z79.84 Long term (current) use of oral hypoglycemic drugs
CPT/HCPCS: 36415; 74018; 80053; 83690; 85025; 85610; 93005; 96374; 96375; 99283; 99284; J0131

== ENCOUNTER 2023-10-15 09:52 | Emergency (ER) | payer MEDICARE ==
[2023-10-15] MEDS: HYDROmorphone 1 MG/ML CARPUJECT IVP PRN (10:30)
[2023-10-15] MEDS: ONDANSETRON 4 MG/2 ML VIAL IVP STA (10:31)
[2023-10-15] MEDS: SODIUM CHLORIDE 0.9% 500 ML IV STA (10:31)
[2023-10-15 10:55] LABS: BASOPHILS % (AUTO) 0.7 %; EOSINOPHILS # (AUTO) 0.1 10^3/uL (0.0-0.7); EOSINOPHILS % (AUTO) 0.8 %; HGB - HEMOGLOBIN 12.3 g/dL (14.0-18.0); LYMPHOCYTES # (AUTO) 0.7 10^3/uL (1.5-3.5); LYMPHOCYTES % (AUTO) 11.8 %; MEAN CORPUSCULAR HEMOGLOBIN 29.2 pg (27.0-31.0); MEAN CORPUSCULAR HGB CONC 32.4 g/dL (32.0-36.0); MEAN CORPUSCULAR VOLUME 90.3 fL (80.0-94.0); MEAN PLATELET VOLUME 8.5 fL (7.4-11.4); MONOCYTES # (AUTO) 0.6 10^3/uL (0.0-1.0); MONOCYTES % (AUTO) 9.8 %; NEUTROPHILS # (AUTO) 4.7 10^3/uL (1.5-6.6); NEUTROPHILS % (AUTO) 76.4 %; PLT - PLATELET COUNT 261 10^3/uL (130-450); RED BLOOD COUNT 4.21 10^6/uL (4.70-6.10); RED CELL DISTRIBUTION WIDTH 12.4 % (12.0-15.0); WHITE BLOOD COUNT 6.1 x10^3/uL (4.8-10.8)
[2023-10-15 10:58] LABS: INR 1.2 (0.8-1.2); PT - PROTHROMBIN TIME 12.7 secs (9.9-12.6)
[2023-10-15 11:06] LABS: ALBUMIN 4.2 g/dL (3.2-5.5); ALBUMIN/GLOBULIN RATIO 1.4 (1.0-2.2); BILIRUBIN,TOTAL 0.5 mg/dL (0.2-1.0); CALCIUM 9.6 mg/dL (8.5-10.3); CREATININE 0.7 mg/dL (0.6-1.3); POTASSIUM 3.4 mmol/L (3.5-4.5); TOTAL PROTEIN 7.3 g/dL (6.4-8.9)
--- NOTE | 2023-10-15 11:15 | ED Physician Documentation ---
History of Present Illness - Stated complaint Stated Complaint: GLF/TAIL BONE PX - Chief complaint Chief Complaint: General - Additonal information Additional information: Patient 78-year-old male presenting to the emergency department with chief complaint of fall and low back pain. 2 days ago tripped over his legs, falling while using the bathroom. Reports landed on his buttocks. No head trauma, loss of consciousness or use of blood thinning medications. Has chronic ulceration on his left buttock for which she follows with wound care. Reports taking his Tylenol-codeine medication with minimal relief. Review of Systems Constitutional: denies: Fever Eyes: denies: Loss of vision Ears: denies: Loss of hearing Nose: denies: Rhinorrhea / runny nose Throat: denies: Dental pain / toothache Cardiac: denies: Chest pain / pressure Respiratory: denies: Dyspnea GI: denies: Abdominal Pain : denies: Dysuria Skin: reports: Other (Wound) Musculoskeletal: reports: Back pain PD PAST MEDICAL HISTORY - Past Medical History Cardiovascular: Hypertension, Coronary artery disease, [place], Atrial fibrillation, Murmur, Other Respiratory: Asthma, COPD Neuro: Headaches Endocrine/Autoimmune: Type 2 diabetes GI: GERD, Hiatal hernia, Diverticulitis : Benign prostate hypertrophy, Nocturia HEENT: Chronic sinusitis, Chronic hearing loss Psych: Depression, Anxiety, Claustrophobia Musculoskeletal: Osteoarthritis, Chronic back pain, Other Derm: Herpes zoster, Other - Past Surgical History Past Surgical History: Yes General: Cholecystectomy, EGD Ortho: Hip replacement, Knee replacement, Arthroscopic surgery, Other Cardiovascular: CABG, Other HEENT: Other - Present Medications Home Medications: Ambulatory Orders Medication Instructions Recorded Confirmed Levalbuterol Tartrate [Xopenex Hfa] 2 puffs INH Q4H PRN 06/21/17 10/15/23 traZODone [Desyrel] 400 mg PO QPM 06/21/17 10/15/23 Metoprolol Tartrate 50 mg PO DAILY 08/01/17 10/15/23 Acetaminophen/Cod 300/30 [Tylenol 1 each PO Q6H PRN #20 tablet 09/28/19 10/15/23 #3] Furosemide 20 mg PO DAILY PRN 07/13/20 10/15/23 Omeprazole 20 mg PO DAILY 07/13/20 10/15/23 glipiZIDE [Glipizide ER] 2.5 mg PO DAILY 04/27/22 10/15/23 Isosorbide Mononitrate 10 mg PO DAILY 09/13/22 10/15/23 Brimonidine 0.2% Ophth Drops 75 drops EACHEYE BID 12/25/22 10/15/23 [Alphagan P 0.2% Ophth Drops] Latanoprost/Pf [Latanoprost 0.005% 7.5 ml OP HS 12/25/22 10/15/23 Eye Drop] Lisinopril [Zestril] 40 mg PO DAILY 12/25/22 10/15/23 Prochlorperazine Maleate 10 mg PO Q6H PRN #15 tablet 06/28/23 10/15/23 [Compazine] Sumatriptan Succinate [Imitrex] 50 mg PO Q6H PRN #10 tablet 06/28/23 10/15/23 Ondansetron Odt [Zofran] 4 mg TL Q6H PRN #10 tablet 07/07/23 10/15/23 Levalbuterol [Xopenex] 1.25 mg INH Q8H PRN #30 ea 09/10/23 10/15/23 Levalbuterol [Xopenex] 1.25 mg IH Q8H #30 ea 09/11/23 10/15/23 - Allergies Allergies/Adverse Reactions: Allergies Allergy/AdvReac Type Severity Reaction Status Date / Time pantoprazole sodium * Allergy Intermediate Nausea Verified 10/15/23 10:25 [From Protonix] Sfbswku-FDG-UcG Reductase Allergy Intermediate Unknown Verified 10/15/23 10:25 Inhibitor [Vqrmcqh-Pyw-Tmq Reductase Inhibitor] Sulfa (Sulfonamide Allergy Intermediate Rash Verified 10/15/23 10:25 Antibiotics) latex Allergy Mild Itching Verified 10/15/23 10:25 - Social History Does the pt smoke?: No Smoking Status: Never smoker Does the pt drink ETOH?: No Does the pt have substance abuse?: No - Immunizations Immunizations are current?: Yes - POLST Patient has POLST: No POLST Status: Full Code PD ED PE NORMAL - General General: Alert and oriented X 3 - HEENT HEENT: Atraumatic - Neck Neck: Supple, no meningeal sign - Cardiac Cardiac: RRR - Respiratory Respiratory: No respiratory distress - Abdomen Abdomen: Normal bowel sounds - Male Male : Deferred - Rectal Rectal: Deferred - Derm Derm: Normal color - Extremities Extremities: Other (Significant ecchymosis noted to the bilateral flanks and low back. There is a 5 cm x 5 cm ovoid ulceration and skin breakdown involving the left buttock. There is no sign of infection.) Results - Vitals Vitals: Vital Signs - 24 hr 10/15/23 09:58 Temperature 36.6 C Heart Rate 70 Respiratory 16 Rate Blood Pressure 156/67 H O2 Saturation 96 Oxygen O2 Source [With Activity] Room air O2 Source Room air - Labs Labs: Laboratory Tests 10/15/23 10/15/23 10/15/23 10:45 10:45 10:45 WBC 6.1 RBC 4.21 L Hgb 12.3 L Hct 38.0 L MCV 90.3 MCH 29.2 MCHC 32.4 RDW 12.4 Plt Count 261 MPV 8.5 Neut # (Auto) 4.7 Lymph # (Auto) 0.7 L Spink # (Auto) 0.6 Eos # (Auto) 0.1 Baso # (Auto) 0.0 Absolute Nucleated RBC 0.00 Nucleated RBC % 0.0 PT 12.7 H INR 1.2 Sodium 137 Potassium 3.4 L Chloride 99 L Carbon Dioxide 31 Anion Gap 7.0 BUN 8 Creatinine 0.7 Estimated GFR (MDRD) 109 Glucose 108 H Calcium 9.6 Total Bilirubin 0.5 AST 29 ALT 25 Alkaline Phosphatase 60 Total Protein 7.3 Albumin 4.2 Globulin 3.1 Albumin/Globulin Ratio 1.4 Lipase 35 PD Medical Decision Making - ED course Complexity details: reviewed old records, reviewed results, re-evaluated patient, d/w patient ED course: Patient 78-year-old male presenting to the emergency department with lower abdominal and back pain. This is after a fall that occurred 2 days ago. Additionally he has a medical history significant for diabetes, chronic ulceration to his left buttock. Afebrile, he medically stable arrival to the emergency department. 5 x 4 cm ovoid ulceration to left buttock noted. No clear indication infection on physical exam. Labs all generally within normal limits or nonactionable. CT of the abdomen pelvis negative for acute traumatic injury however nonspecific fat stranding noted around the left buttock concerning for inflammation/infection. Will initiate course doxycycline. Patient given dose hydromorphone in the emergency department and monitor carefully after the administration of this medication.Will discharge on course doxycycline. He currently has to schedule II medications prescribed to him, Tylenol-codeine as well as lorazepam. At this time further prescriptions are altering his chronic pain regimen would be inappropriate from the emergency department. He was encouraged to follow-up with his primary care doctor soon as possible return to the emergency department as needed. Departure - Departure Disposition: 01 Home, Self Care Clinical Impression: Cellulitis of buttock, left, Chronic ulcer of buttock Fall Qualifiers: Encounter type: initial encounter Qualified Code(s): W19.XXXA - Unspecified fall, initial encounter Comments: Thank you for allowing us to care for you today [facility]. Today in the emergency department you were evaluated for any possible dangerous or life-threatening medical emergency. All the testing performed in the emergency department today was reassuring. There is no sign of traumatic injury with the exception of a small hematoma or bruise after your fall that occurred 2 days ago. You did have some signs of increased inflammation around your left buttock u lceration. I like you to begin a course of oral antibiotic. You received your first dose here. Please fill your prescription and take as directed. Please continue to use your currently prescribed medications, Including your current Tylenol with codeine and lorazepam. For changes in these medications you will need to speak to your primary prescriber. If it anytime you have new or worsening symptoms please not hesitate to return. Forms: PCP List
[2023-10-15] MEDS ORDERED: iohexoL-300 100 ML VIAL ONE (11:19)
[2023-10-15] MEDS: iohexoL-300 100 ML VIAL IVP ONE (11:43)
--- NOTE | 2023-10-15 11:56 | CT Report ---
PROCEDURE: Abdomen/Pelvis W INDICATIONS: Fall, sig eccymosis, rule out Retroperitoneal blee CONTRAST: 100ml omni 300 TECHNIQUE: After the administration of intravenous contrast, a CT scan of the abdomen and pelvis was performed. Images were recorded and evaluated at appropriate window settings. Reformats: coronal and sagittal. F or radiation dose reduction, the following was used: automated exposure control, adjustment of mA and /or kV according to patient size. COMPARISON: CT abdomen pelvis 09/15/2023. FINDINGS: Image quality: Diagnostic. Lower chest: Unremarkable. Liver: No solid mass. Gallbladder and biliary tree: Surgically absent. No biliary dilation, accounting for post-cholecystec silvia state. Spleen: No splenomegaly. Pancreas: No pancreatic ductal dilation. Adrenals: No adrenal nodule. Kidneys and ureters: No hydronephrosis. No renal cystic lesion which requires follow up. No solid mas s. Stomach, bowel and peritoneum: No bowel distension. No pathologic free fluid. Diverticulosis without evidence of diverticulitis. Normal appendix. Lymph nodes: No central or retroperitoneal adenopathy. Vessels: No infrarenal aortic aneurysm. Significant atherosclerotic vascular calcifications. PELVIS: Evaluation of the pelvis is limited secondary to streak artifact from hip arthroplasties. Reproductive organs: Unremarkable. Bladder: No abnormal wall thickening, accounting for underdistention. Pelvic lymph nodes: No pelvic adenopathy by size criteria. Bones: No aggressive osseous abnormality. Bilateral hip arthroplasties. Lumbar spine hardware. Decrea sed osseous mineralization. Multilevel degenerative changes of the lumbar spine. Subacute or chronic. Right posterior 12th rib fracture. Other: No significant ventral or inguinal hernia. Subcutaneous stranding along the right buttocks and upper thigh. IMPRESSION: 1.Subcutaneous stranding along the right buttocks and upper thigh. Small subcutaneous hematoma. No re troperitoneal bleed. 2.Diverticulosis without evidence of acute diverticulitis. 3.Additional chronic findings are stable compared to prior exam, as described above. Reviewed by: Yemi Oneill MD on 10/15/2023 11:55 AM PST Approved by: Yemi Oneill MD on 10/15/2023 11:55 AM PST Station ID: [id number]
[2023-10-15] MEDS: DOXYCYCLINE 100 MG TABLET PO STA (12:11)
[2023-10-15 12:20] VITALS: BP 136/84; O2SAT 98
== END 2023-10-15 12:15 | disposition home or self-care (01) ==
LOC: ED 09:52
DX: E11.622 Type 2 diabetes mellitus with other skin ulcer (principal); L98.419 Non-pressure chronic ulcer of buttock with unspecified severity; I10 Essential (primary) hypertension; I48.91 Unspecified atrial fibrillation; Z79.84 Long term (current) use of oral hypoglycemic drugs; W01.0XXA Fall on same level from slipping, tripping and stumbling without subsequent striking against object, initial encounter
CPT/HCPCS: 36415; 74177; 80053; 83690; 85025; 85610; 96374; 96375; 96376; 99284; A9270; J1170; Q9967

== ENCOUNTER 2023-12-20 15:44 | Outpatient (CLI) | payer MEDICARE ==
--- NOTE | 2023-12-21 12:22 | MRI Report ---
PROCEDURE: Pelvis WO INDICATIONS: INGUINAL HERNIA TECHNIQUE: Noncontrast coronal T1 spin echo and STIR through the bony pelvis. Sagittal T2 FSE with fat saturati on, oblique axial PD FSE and T2 FSE with fat saturation through the symphysis pubis. COMPARISON: 10/15/2023 FINDINGS: Image quality: Diagnostic, but degraded by metallic artifact Lower abdomen: Colonic diverticula are partially seen. No bowel obstruction or pathologic ascites Bladder: Unremarkable Reproductive organs: Prostate is not well eval on this study. Heterogeneous appearance may be due to BPH, consider PSA correlation. Rectum: Unremarkable Vessels and lymph nodes: No pathologic lymph nodes by size criteria within the field of view. No aneu rysmal vessel within the field of view. Pelvic wall: On this nondynamic study, no discrete inguinal hernia is identified. Bones: Bilateral hip arthroplasties. Partially seen lumbosacral fusion hardware IMPRESSION: On this nondynamic study, no discrete inguinal hernia, drainable fluid collection, or mass is identif ied. Consider ultrasound for dynamic evaluation if indicated. There is image degradation due to metallic artifact. Colonic diverticulosis. Other findings above. Reviewed by: José Miguel Bragg MD on 12/21/2023 12:21 PM PDT Approved by: José Miguel Bragg MD on 12/21/2023 12:21 PM PDT Station ID: [id number]
== END 2023-12-20 15:45 | disposition home or self-care (01) ==
LOC: DI 15:44
PROVIDERS: ATTEND Internal Medicine
DX: K40.90 Unilateral inguinal hernia, without obstruction or gangrene, not specified as recurrent (principal); R10.2 Pelvic and perineal pain; K57.30 Diverticulosis of large intestine without perforation or abscess without bleeding

== ENCOUNTER 2024-01-14 10:04 | Emergency (ER) | payer MEDICARE ==
--- NOTE | 2024-01-14 12:02 | ED Physician Documentation ---
History of Present Illness - Stated complaint Stated Complaint: RIGHT ARM POST-OP ANNE-MARIE - Chief complaint Chief Complaint: Ext Problem - History obtained from History obtained from: Patient - History of Present Illness Timing: How many weeks ago (2) Pain level max: 0 Pain level now: 0 - Additonal information Additional information: 78-year-old male states that he had shoulder surgery about 2 weeks ago at [facility] in [place] with Dr. Navarrete. He states that he did not want to drive back to [place] and so came here to have his anne-marie removed. He does not have any pain, no fevers, no chills. No redness. No drainage. He has no other complaints Review of Systems Constitutional: denies: Fever PD PAST MEDICAL HISTORY - Past Medical History Cardiovascular: Hypertension, Coronary artery disease, [place], Atrial fibrillation, Murmur, Other Respiratory: Asthma, COPD Neuro: Headaches Endocrine/Autoimmune: Type 2 diabetes GI: GERD, Hiatal hernia, Diverticulitis : Benign prostate hypertrophy, Nocturia HEENT: Chronic sinusitis, Chronic hearing loss Psych: Depression, Anxiety, Claustrophobia Musculoskeletal: Osteoarthritis, Chronic back pain, Other Derm: Herpes zoster, Other - Past Surgical History Past Surgical History: Yes General: Cholecystectomy, EGD Ortho: Hip replacement, Knee replacement, Arthroscopic surgery, Other Cardiovascular: CABG, Other HEENT: Other - Present Medications Home Medications: Ambulatory Orders Medication Instructions Recorded Confirmed Levalbuterol Tartrate [Xopenex Hfa] 2 puffs INH Q4H PRN 06/21/17 11/30/23 traZODone [Desyrel] 400 mg PO QPM 06/21/17 11/30/23 Metoprolol Tartrate 50 mg PO DAILY 08/01/17 11/30/23 Acetaminophen/Cod 300/30 [Tylenol 1 each PO Q6H PRN #20 tablet 09/28/19 11/30/23 #3] Furosemide 20 mg PO DAILY PRN 07/13/20 11/30/23 Omeprazole 20 mg PO DAILY 07/13/20 11/30/23 glipiZIDE [Glipizide ER] 2.5 mg PO DAILY 04/27/22 11/30/23 Isosorbide Mononitrate 10 mg PO DAILY 09/13/22 11/30/23 Brimonidine 0.2% Ophth Drops 75 drops EACHEYE BID 12/25/22 11/30/23 [Alphagan P 0.2% Ophth Drops] Latanoprost/Pf [Latanoprost 0.005% 7.5 ml OP HS 12/25/22 11/30/23 Eye Drop] Lisinopril [Zestril] 40 mg PO DAILY 12/25/22 11/30/23 Prochlorperazine Maleate 10 mg PO Q6H PRN #15 tablet 06/28/23 11/30/23 [Compazine] Sumatriptan Succinate [Imitrex] 50 mg PO Q6H PRN #10 tablet 06/28/23 11/30/23 Ondansetron Odt [Zofran] 4 mg TL Q6H PRN #10 tablet 07/07/23 11/30/23 Levalbuterol [Xopenex] 1.25 mg INH Q8H PRN #30 ea 09/10/23 11/30/23 - Allergies Allergies/Adverse Reactions: Allergies Allergy/AdvReac Type Severity Reaction Status Date / Time pantoprazole sodium * Allergy Intermediate Nausea Verified 01/14/24 10:21 [From Protonix] Bspjftv-CPW-CaR Reductase Allergy Intermediate Unknown Verified 01/14/24 10:21 Inhibitor [Kqscuil-Lms-Nug Reductase Inhibitor] Sulfa (Sulfonamide Allergy Intermediate Rash Verified 01/14/24 10:21 Antibiotics) latex Allergy Mild Itching Verified 01/14/24 10:21 - Social History Does the pt smoke?: No Smoking Status: Never smoker Does the pt drink ETOH?: No Does the pt have substance abuse?: No - Immunizations Immunizations are current?: Yes - POLST Patient has POLST: No POLST Status: Full Code PD ED PE NORMAL - Vitals Vital signs reviewed: Yes - General General: Alert and oriented X 3, No acute distress - HEENT HEENT: Moist mucous membranes - Extremities Extremities: Other (Well-healed incision to the right shoulder. Lincoln in place. No erythema, swelling or drainage. NVI) - Neuro Neuro: Alert and oriented X 3 Results - Vitals Vitals: Vital Signs - 24 hr 01/14/24 10:18 Temperature 36.6 C Heart Rate 74 Respiratory 18 Rate Blood Pressure 119/54 L O2 Saturation 95 Oxygen O2 Source [With Activity] Room air O2 Source Room air Procedures - Suture/staple Removal (location) - Minor Right shoulder Suture/staple removal: # anne-marie (all), No complications PD Medical Decision Making - ED course Complexity details: considered differential, d/w patient, d/w organizational consultant ED course: 78-year-old male requesting his postoperative anne-marie to be removed. I spoke with the surgeon on-call for his orthopedist, Dr. Jarrett, recommends removing the anne-marie and adding Steri-Strips. Recommend close follow-up in the office as previously instructed. The anne-marie were removed. No complications. No dehiscence. No infection. Patient was counseled to follow-up as instructed by his surgeons office. Stressed the importance of a follow-up visit postoperatively. This document was made in part using voice recognition software. While efforts are made to proofread this document, sound alike and grammatical errors may occur. Departure - Departure Disposition: 01 Home, Self Care Clinical Impression: Removal of anne-marie Condition: Good Instructions: ED Stap Removal No Complication Follow-Up: ANGELICA VELEZ MD [Physician No Access] - Within 3 Days Comments: It is importantly follow-up with your orthopedic surgeon for a postoperative check and to ensure that you are healing properly. I spoke with Dr. Jarrett from [facility] today on-call for Dr. Velez. Your anne-marie were removed. Keep the wound clean. If you notice redness, swelling or drainage from the wound, please contact your surgeon immediately Forms: PCP List
[2024-01-14 12:55] VITALS: BP 144/68; O2SAT 99
== END 2024-01-14 12:52 | disposition home or self-care (01) ==
LOC: ED 10:04
DX: Z48.02 Encounter for removal of sutures (principal)
CPT/HCPCS: 99281; 99283

== ENCOUNTER 2024-01-24 14:42 | Outpatient (CLI) | payer MEDICARE ==
--- NOTE | 2024-01-24 15:05 | XRAY Report ---
PROCEDURE: Shoulder 2+V RT INDICATIONS: SHOULDER PAIN TECHNIQUE: 3 views of the shoulder were acquired. COMPARISON: X-ray shoulder 07/18/2023 FINDINGS: Bones: No fractures or dislocations. No suspicious bony lesions. Visualized ribs appear intact. Shoulder arthroplasty is present. Hardware is intact without evidence of hardware fracture or peripro sthetic lucency to suggest loosening. Moderate to severe acromioclavicular degenerative narrowing. Soft tissues: No suspicious soft tissue calcifications. The visualized lungs are within normal limi ts. IMPRESSION: Shoulder arthroplasty as above. Moderate to severe acromioclavicular arthritic change. Reviewed by: Zeina Saavedra MD on 01/24/2024 3:04 PM PDT Approved by: Zeina Saavedra MD on 01/24/2024 3:04 PM PDT Station ID: [id number]
== END 2024-01-24 14:43 | disposition home or self-care (01) ==
LOC: DI 14:42
PROVIDERS: ATTEND Internal Medicine
DX: M19.011 Primary osteoarthritis, right shoulder (principal); Z96.611 Presence of right artificial shoulder joint

== ENCOUNTER 2024-02-03 11:23 | Emergency (ER) | payer MEDICARE ==
--- NOTE | 2024-02-03 12:17 | XRAY Report ---
PROCEDURE: Chest 2V INDICATIONS: cough, SOA TECHNIQUE: 2 views of the chest were acquired. COMPARISON: 08/11/23 FINDINGS: Surgical changes and devices: Sternotomy and right shoulder arthroplasty. ACDF lower spine. Lungs and pleura: No pleural effusions or pneumothorax. Lungs are clear. Mediastinum: Mediastinal contours appear normal. Heart size is normal. Bones and chest wall: No suspicious bony lesions. Overlying soft tissues appear unremarkable. IMPRESSION: No acute cardiopulmonary process. Reviewed by: Leroy Sanders MD on 02/03/2024 12:16 PM PDT Approved by: Leroy Sanders MD on 02/03/2024 12:16 PM PDT Station ID: [id number]
[2024-02-03] MEDS: LIDOCAINE/PRILOCAINE 2.5% CREAM 5 GM TUBE TOP STA (12:51)
--- NOTE | 2024-02-03 12:52 | ED Physician Documentation ---
History of Present Illness - Stated complaint Stated Complaint: SOA,CONGESTION,COUGH - Chief complaint Chief Complaint: Resp - Additonal information Additional information: 78-year-old male with history of hypertension, [place], A-fib, murmur, coronary artery disease, asthma, COPD, seasonal allergies, type 2 diabetes, diverticulitis, BPH, anxiety, depression presents emergency department for what he describes as shortness of breath. Patient says that last night he feels like environmental allergens set off COPD/asthma flare. He says that he takes inhalers at home and has had little to no relief he is able to speak in full sentences and says that normally steroids and antibiotics help with the COPD/asthma flares. His O2 sats are 95% on room air no recent fevers or chills. PD PAST MEDICAL HISTORY - Past Medical History Past Medical History: Yes Cardiovascular: Hypertension, Coronary artery disease, [place], Atrial fibrillation, Murmur, Other Respiratory: Asthma, COPD Neuro: Headaches Endocrine/Autoimmune: Type 2 diabetes GI: GERD, Hiatal hernia, Diverticulitis : Benign prostate hypertrophy, Nocturia HEENT: Chronic sinusitis, Chronic hearing loss Psych: Depression, Anxiety, Claustrophobia Musculoskeletal: Osteoarthritis, Chronic back pain, Other Derm: Herpes zoster, Other - Past Surgical History Past Surgical History: Yes General: Cholecystectomy, EGD Ortho: Hip replacement, Knee replacement, Arthroscopic surgery, Other Cardiovascular: CABG, Other HEENT: Other - Present Medications Home Medications: Ambulatory Orders Medication Instructions Recorded Confirmed Levalbuterol Tartrate [Xopenex Hfa] 2 puffs INH Q4H PRN 06/21/17 11/30/23 traZODone [Desyrel] 400 mg PO QPM 06/21/17 11/30/23 Metoprolol Tartrate 50 mg PO DAILY 08/01/17 11/30/23 Acetaminophen/Cod 300/30 [Tylenol 1 each PO Q6H PRN #20 tablet 09/28/19 11/30/23 #3] Furosemide 20 mg PO DAILY PRN 07/13/20 11/30/23 Omeprazole 20 mg PO DAILY 07/13/20 11/30/23 glipiZIDE [Glipizide ER] 2.5 mg PO DAILY 04/27/22 11/30/23 Isosorbide Mononitrate 10 mg PO DAILY 09/13/22 11/30/23 Brimonidine 0.2% Ophth Drops 75 drops EACHEYE BID 12/25/22 11/30/23 [Alphagan P 0.2% Ophth Drops] Latanoprost/Pf [Latanoprost 0.005% 7.5 ml OP HS 12/25/22 11/30/23 Eye Drop] Lisinopril [Zestril] 40 mg PO DAILY 12/25/22 11/30/23 Prochlorperazine Maleate 10 mg PO Q6H PRN #15 tablet 06/28/23 11/30/23 [Compazine] Sumatriptan Succinate [Imitrex] 50 mg PO Q6H PRN #10 tablet 06/28/23 11/30/23 Ondansetron Odt [Zofran] 4 mg TL Q6H PRN #10 tablet 07/07/23 11/30/23 Levalbuterol [Xopenex] 1.25 mg INH Q8H PRN #30 ea 09/10/23 11/30/23 Doxycycline [Vibramycin] 100 mg PO BID 5 Days #10 tablet 02/03/24 predniSONE [Deltasone] 40 mg PO DAILY 5 Days #10 tablet 02/03/24 - Allergies Allergies/Adverse Reactions: Allergies Allergy/AdvReac Type Severity Reaction Status Date / Time pantoprazole sodium * Allergy Intermediate Nausea Verified 02/03/24 11:45 [From Protonix] Ctqlsfz-CBH-FvT Reductase Allergy Intermediate Unknown Verified 02/03/24 11:45 Inhibitor [Bmysris-Das-Obh Reductase Inhibitor] Sulfa (Sulfonamide Allergy Intermediate Rash Verified 02/03/24 11:45 Antibiotics) latex Allergy Mild Itching Verified 02/03/24 11:45 - Social History Does the pt smoke?: No Smoking Status: Never smoker Does the pt drink ETOH?: No Does the pt have substance abuse?: No - Immunizations Immunizations are current?: Yes - POLST Patient has POLST: No POLST Status: Full Code PD ED PE NORMAL - Vitals Vital signs reviewed: Yes - General General: Alert and oriented X 3, No acute distress, Well developed/nourished - HEENT HEENT: Atraumatic - Cardiac Cardiac: RRR - Respiratory Respiratory: Other (Bilateral expiratory wheeze throughout both lung cruz) - Derm Derm: Normal color, Warm and dry, No rash - Extremities Extremities: No edema, No calf tenderness / cord - Neuro Neuro: Alert and oriented X 3, traffic worker 2-12 intact, No motor deficit, No sensory deficit, Normal speech Eye Opening: Spontaneous Motor: Obeys Commands Verbal: Oriented GCS Score: 15 - Psych Psych: Normal mood Results - Vitals Vitals: Vital Signs - 24 hr 02/03/24 02/03/24 02/03/24 11:38 13:14 13:44 Temperature 36.3 C L Heart Rate 72 78 66 Respiratory 18 18 14 Rate Blood Pressure 139/77 H 128/67 O2 Saturation 95 98 Oxygen O2 Source [] Room air O2 Source Room air - Rads (name of study) 2 view chest x-ray Relevant Findings:: Final report received, EMP independent interpretation of test, Other (No acute cardiopulmonary process) PD Medical Decision Making - ED course ED course: 78-year-old male presents emergency department for episode of shortness of breath. Patient says that last night he feels that seasonal allergies triggered a COPD and asthma exacerbation. He is able to speak in full sentences he is not in any acute respiratory distress and is oxygenating at 95% on room air. No nausea vomiting no recent illnesses no fevers or chills not coughing up any purulent mucus make me less suspicious or concern for possible pneumonia. Two- view chest x-ray was complete and did not reveal any acute cardiopulmonary abnormalities. I do believe that this is a COPD exacerbation he does have some wheezing on expiration a DuoNeb was given here in the emergency department he was started on steroids and doxycycline for COPD exacerbation and given strict ER return precautions. Departure - Departure Disposition: 01 Home, Self Care Clinical Impression: Moderate COPD (chronic obstructive pulmonary disease), Asthma Instructions: Asthma Dc, COPD Dc Prescriptions: predniSONE [Deltasone] 40 mg PO DAILY 5 Days #10 tablet Doxycycline [Vibramycin] 100 mg PO BID 5 Days #10 tablet Comments: Thank you for trusting us with your care I believe that you are experiencing a COPD exacerbation. We have given you a dose of steroids and doxycycline here in the emergency department as well as a breathing treatment to help with your shortness of breath your chest x-ray is normal. Please follow-up with your primary care provider to let them know about today's ER visit to see if there is any additional inhalers that they think that you may benefit from. Please come back into the ER if you are having any worsening shortness of breath despite the antibiotics and steroids that I prescribed which will be at [facility] in [place] or any other concerning worsening symptoms. Wishing you a speedy recovery. Forms: PCP List Discharge Date/Time: 02/03/24 13:48
[2024-02-03] MEDS: IPRATROPIUM/ALBUTEROL 3 ML NEB INH STA (13:14)
[2024-02-03] MEDS: predniSONE 20 MG TABLET PO STA (13:28)
[2024-02-03] MEDS: DOXYCYCLINE 100 MG TABLET PO STA (13:28)
[2024-02-03 13:52] VITALS: BP 128/67; O2SAT 98
== END 2024-02-03 13:48 | disposition home or self-care (01) ==
LOC: ED 11:23
DX: J44.9 Chronic obstructive pulmonary disease, unspecified (principal)
CPT/HCPCS: 71046; 94640; 99283; 99284; A9270; J3490; J7512

== ENCOUNTER 2024-03-19 00:47 | Outpatient (CLI) | payer MEDICARE | END 2024-03-19 23:59 | disposition critical access hospital (66) | LOC: EMS 00:47 | DX: T44.7X2A Poisoning by beta-adrenoreceptor antagonists, intentional self-harm, initial encounter (principal); T43.212A Poisoning by selective serotonin and norepinephrine reuptake inhibitors, intentional self-harm, initial encounter; G89.29 Other chronic pain | CPT/HCPCS: A0425; A0427 ==

== ENCOUNTER 2024-03-19 00:58 | Emergency (ER) | payer MEDICARE ==
[2024-03-19 01:26] LABS: BASOPHILS # (AUTO) 0.1 10^3/uL (0.0-0.1); BASOPHILS % (AUTO) 0.7 %; EOSINOPHILS # (AUTO) 0.5 10^3/uL (0.0-0.7); EOSINOPHILS % (AUTO) 5.1 %; HCT - HEMATOCRIT 34.7 % (42.0-52.0); HGB - HEMOGLOBIN 10.5 g/dL (14.0-18.0); LYMPHOCYTES # (AUTO) 1.5 10^3/uL (1.5-3.5); LYMPHOCYTES % (AUTO) 16.2 %; MEAN CORPUSCULAR HEMOGLOBIN 25.2 pg (27.0-31.0); MEAN CORPUSCULAR HGB CONC 30.3 g/dL (32.0-36.0); MEAN CORPUSCULAR VOLUME 83.4 fL (80.0-94.0); MEAN PLATELET VOLUME 8.6 fL (7.4-11.4); MONOCYTES % (AUTO) 10.8 %; NEUTROPHILS # (AUTO) 6.2 10^3/uL (1.5-6.6); PLT - PLATELET COUNT 240 10^3/uL (130-450); RED BLOOD COUNT 4.16 10^6/uL (4.70-6.10); RED CELL DISTRIBUTION WIDTH 14.3 % (12.0-15.0); WHITE BLOOD COUNT 9.2 x10^3/uL (4.8-10.8)
--- NOTE | 2024-03-19 01:26 | ED Physician Documentation ---
PD HPI OVERDOSE - Stated complaint Stated Complaint: OD - History obtained from History obtained from: Patient, EMS - Additional information Additional information: 79-year-old male with history of chronic back pain, diabetes presents by EMS from home for intentional overdose. Patient told EMS that he was tired of dealing with his chronic back pain and wanted to "end it all". Patient took approximately 20 tablets of 100 mg metoprolol succinate extended release. Review of Systems Constitutional: denies: Fever, Chills Musculoskeletal: reports: Back pain. denies: Neck pain, Extremity pain, Joint pain, Extremity swelling PD PAST MEDICAL HISTORY - Past Medical History Cardiovascular: Hypertension, Coronary artery disease, [place], Atrial fibrillation, Murmur, Other Respiratory: Asthma, COPD Neuro: Headaches Endocrine/Autoimmune: Type 2 diabetes GI: GERD, Hiatal hernia, Diverticulitis : Benign prostate hypertrophy, Nocturia HEENT: Chronic sinusitis, Chronic hearing loss Psych: Depression, Anxiety, Claustrophobia Musculoskeletal: Osteoarthritis, Chronic back pain, Other Derm: Herpes zoster, Other - Past Surgical History Past Surgical History: Yes General: Cholecystectomy, EGD Ortho: Hip replacement, Knee replacement, Arthroscopic surgery, Other Cardiovascular: CABG, Other HEENT: Other - Present Medications Home Medications: Ambulatory Orders Medication Instructions Recorded Confirmed Levalbuterol Tartrate [Xopenex Hfa] 2 puffs INH Q4H PRN 06/21/17 11/30/23 traZODone [Desyrel] 400 mg PO QPM 06/21/17 11/30/23 Metoprolol Tartrate 50 mg PO DAILY 08/01/17 11/30/23 Acetaminophen/Cod 300/30 [Tylenol 1 each PO Q6H PRN #20 tablet 09/28/19 11/30/23 #3] Furosemide 20 mg PO DAILY PRN 07/13/20 11/30/23 Omeprazole 20 mg PO DAILY 07/13/20 11/30/23 glipiZIDE [Glipizide ER] 2.5 mg PO DAILY 04/27/22 11/30/23 Isosorbide Mononitrate 10 mg PO DAILY 09/13/22 11/30/23 Brimonidine 0.2% Ophth Drops 75 drops EACHEYE BID 12/25/22 11/30/23 [Alphagan P 0.2% Ophth Drops] Latanoprost/Pf [Latanoprost 0.005% 7.5 ml OP HS 12/25/22 11/30/23 Eye Drop] Lisinopril [Zestril] 40 mg PO DAILY 12/25/22 11/30/23 Prochlorperazine Maleate 10 mg PO Q6H PRN #15 tablet 06/28/23 11/30/23 [Compazine] Sumatriptan Succinate [Imitrex] 50 mg PO Q6H PRN #10 tablet 06/28/23 11/30/23 Ondansetron Odt [Zofran] 4 mg TL Q6H PRN #10 tablet 07/07/23 11/30/23 Levalbuterol [Xopenex] 1.25 mg INH Q8H PRN #30 ea 09/10/23 11/30/23 Doxycycline [Vibramycin] 100 mg PO BID 5 Days #10 tablet 02/03/24 predniSONE [Deltasone] 40 mg PO DAILY 5 Days #10 tablet 02/03/24 - Allergies Allergies/Adverse Reactions: Allergies Allergy/AdvReac Type Severity Reaction Status Date / Time pantoprazole sodium * Allergy Intermediate Nausea Verified 03/19/24 02:05 [From Protonix] Merznhc-GWS-NpV Reductase Allergy Intermediate Unknown Verified 03/19/24 02:05 Inhibitor [Hvtmhus-Nlj-Vpy Reductase Inhibitor] Sulfa (Sulfonamide Allergy Intermediate Rash Verified 03/19/24 02:05 Antibiotics) latex Allergy Mild Itching Verified 03/19/24 02:05 - Social History Does the pt smoke?: No Smoking Status: Never smoker Does the pt drink ETOH?: No Does the pt have substance abuse?: No - Immunizations Immunizations are current?: Yes - POLST Patient has POLST: No POLST Status: Full Code PD ED PE NORMAL - Vitals Vital signs reviewed: Yes - General General: Other (awake, alert, agitated) - Cardiac Cardiac: RRR, Strong equal pulses - Respiratory Respiratory: No respiratory distress, Clear bilaterally, Other (wearing nasal cannula for comfort, no wheezes) - Derm Derm: Normal color, Warm and dry, No rash - Extremities Extremities: No deformity, No tenderness to palpate, Normal ROM s pain, No edema - Neuro Neuro: Alert and oriented X 3, gasket maker 2-12 intact, No motor deficit, Normal speech Results - Vitals Vitals: Vital Signs - 24 hr 03/19/24 03/19/24 03/19/24 01:00 01:35 01:41 Temperature 36.5 C Heart Rate 81 78 81 Respiratory 22 22 15 Rate Blood Pressure 145/64 H 147/97 H 162/68 H O2 Saturation 99 93 94 If not protocol 4 2 : Oxygen Flow, liters/minute 03/19/24 03/19/24 03/19/24 02:11 02:30 03:10 Temperature Heart Rate 74 84 80 Respiratory 15 15 10 L Rate Blood Pressure 143/81 H 168/74 H 183/92 H O2 Saturation 95 95 95 If not protocol 4 4 2 : Oxygen Flow, liters/minute 03/19/24 03/19/24 03/19/24 03:40 04:00 04:30 Temperature Heart Rate 84 74 76 Respiratory 16 18 22 Rate Blood Pressure 190/102 H 180/85 H 189/104 H O2 Saturation 94 96 98 If not protocol 3 6 6 : Oxygen Flow, liters/minute 03/19/24 03/19/24 03/19/24 05:00 05:30 06:00 Temperature 36.3 C L Heart Rate 78 79 80 Respiratory 17 20 22 Rate Blood Pressure 187/99 H 195/117 H 195/112 H O2 Saturation 98 100 100 If not protocol 6 6 4 : Oxygen Flow, liters/minute Oxygen O2 Source [With Activity] Room air O2 Source Nasal cannula Oxygen Flow Rate 4 - Labs Labs: Laboratory Tests 03/19/24 03/19/24 03/19/24 00:17 00:17 00:17 WBC 9.2 RBC 4.16 L Hgb 10.5 L Hct 34.7 L MCV 83.4 MCH 25.2 L MCHC 30.3 L RDW 14.3 Plt Count 240 MPV 8.6 Neut # (Auto) 6.2 Lymph # (Auto) 1.5 [place] # (Auto) 1.0 Eos # (Auto) 0.5 Baso # (Auto) 0.1 Absolute Nucleated RBC 0.00 Nucleated RBC % 0.0 PT 12.2 INR 1.1 Bld Gas Analysis Time Sample Site ABG pH ABG pCO2 ABG pO2 ABG HCO3 ABG Total CO2 ABG O2 Saturation ABG Base Excess Pedro Test Sodium 138 Potassium 3.7 Chloride 104 Carbon Dioxide 29 Anion Gap 5.0 L BUN 18 Creatinine 0.7 Estimated GFR (MDRD) 109 Glucose 150 H Calcium 9.3 Phosphorus 3.2 Magnesium 1.6 L Total Bilirubin 0.2 AST 18 ALT 16 Alkaline Phosphatase 73 Total Protein 7.2 Albumin 4.1 Globulin 3.1 Albumin/Globulin Ratio 1.3 Urine Color Urine Clarity Urine pH Ur Specific [place] Urine Protein Urine Glucose (UA) Urine Ketones Urine Occult Blood Urine Nitrite Urine Bilirubin Urine Urobilinogen Ur Leukocyte Esterase Ur Microscopic Review Urine Culture Comments Salicylates < 1.5 Urine Opiates Screen Ur Buprenorphine Scrn Ur Oxycodone Screen Urine Methadone Screen Acetaminophen 3.3 Ur Barbiturates Screen Ur Tricyclics Screen Ur Phencyclidine Scrn Ur Amphetamine Screen U Methamphetamines Scrn U Benzodiazepines Scrn Urine Cocaine Screen U Cannabinoids Screen Ur Drug Screen Comment Ethyl Alcohol < 10.0 SARS-CoV-2 (PCR) 03/19/24 03/19/24 03/19/24 00:17 01:05 01:40 WBC RBC Hgb Hct MCV MCH MCHC RDW Plt Count MPV Neut # (Auto) Lymph # (Auto) [place] # (Auto) Eos # (Auto) Baso # (Auto) Absolute Nucleated RBC Nucleated RBC % PT INR Bld Gas Analysis Time 0122 Sample Site RIGHT RADIAL ABG pH 7.34 L ABG pCO2 49 H ABG pO2 92 ABG HCO3 25.6 ABG Total CO2 27.1 ABG O2 Saturation 96 ABG Base Excess -0.6 Pedro Test POSITIVE Sodium Potassium Chloride Carbon Dioxide Anion Gap BUN Creatinine Estimated GFR (MDRD) Glucose Calcium Phosphorus Magnesium Total Bilirubin AST ALT Alkaline Phosphatase Total Protein Albumin Globulin Albumin/Globulin Ratio Urine Color YELLOW Urine Clarity CLEAR Urine pH 6.0 Ur Specific [place] 1.010 Urine Protein NEGATIVE Urine Glucose (UA) NEGATIVE Urine Ketones NEGATIVE Urine Occult Blood NEGATIVE Urine Nitrite NEGATIVE Urine Bilirubin NEGATIVE Urine Urobilinogen 0.2 (NORMAL) Ur Leukocyte Esterase NEGATIVE Ur Microscopic Review NOT INDICATED Urine Culture Comments NOT INDICATED Salicylates Urine Opiates Screen POSITIVE H Ur Buprenorphine Scrn NEGATIVE Ur Oxycodone Screen NEGATIVE Urine Methadone Screen NEGATIVE Acetaminophen Ur Barbiturates Screen NEGATIVE Ur Tricyclics Screen NEGATIVE Ur Phencyclidine Scrn NEGATIVE Ur Amphetamine Screen NEGATIVE U Methamphetamines Scrn NEGATIVE U Benzodiazepines Scrn POSITIVE H Urine Cocaine Screen NEGATIVE U Cannabinoids Screen NEGATIVE Ur Drug Screen Comment CUTOFF CONC BELOW: Ethyl Alcohol SARS-CoV-2 (PCR) NOT DETECTED PD Medical Decision Making - ED course Complexity details: reviewed old records, reviewed results, re-evaluated patient, considered differential, d/w patient, d/w talent development consultant, other (d/w poison control) ED course: Suicide attempt by reportedly taking 20 tablets of 100 mg metoprolol succinate extended release. Currently hemodynamically stable. Patient repeatedly yelling that he cannot breathe, but subsequently speaking in clear and complete sentences without difficulty, then shortly after screaming for "help" and making various requests. Poison control faxed recommendations for beta eli overdose, including activated charcoal, glucagon, calcium gluconate, and high dose insulin. Patient continues to flail around on ED stretcher, ripping out his IVs, intermittently yelling for help, then requesting to go home and asking how long he has to be in the emergency department. Numerous attempts to redirect patient verbally and speak with patient were attempted, however he continued to act in a similar behavior. Patient given Haldol, Ativan, and Benadryl for anxiolysis and placed in soft restraints to prevent patient from removing IVs. Poison control called back, stating that if patient had normal vitals he did not need high dose insulin or glucagon. Patient has remained hemodynamically stable with normal vitals despite his agitation. I had reached out to various facilities for transfer in case patient crashes hemodynamically and needs additional support, however no facilities have available beds and transfer has been declined from multiple facilties. Patient monitored overnight, has remained hemodynamically stable. No bradycardia or hypotension noted. Rediscussed case with poison control, who stated that patient should be monitored until at least 1 PM today and then he can be cleared from a medical standpoint for psychiatric evaluation. Care of patient signed out to daytime physician for further monitoring and treatment. - Critical Care Time(min): 51 Time Includes: Direct patient care, Review records, Reassess patient, Document care, Coordinate care, Medical consult Data interpretation: Labs, Pulse ox, ABG, CXR, Prior EKG, Cardiac output Procedures included in critical care time: Peripheral IV Departure - Departure Clinical Impression: Suicide attempt by beta eli overdose Qualifiers: Encounter type: initial encounter Qualified Code(s): T44.7X2A - Poisoning by beta-adrenoreceptor antagonists, intentional self-harm, initial encounter Forms: PCP List
[2024-03-19 01:28] LABS: BILIRUBIN,URINE NEGATIVE (NEGATIVE); GLUCOSE, URINE (UA) NEGATIVE (NEGATIVE); KETONES,URINE (UA) NEGATIVE (NEGATIVE); LEUKOCYTE ESTERASE, URINE NEGATIVE (NEGATIVE); NITRITE,URINE NEGATIVE (NEGATIVE); OCCULT BLOOD,URINE NEGATIVE (NEGATIVE); PROTEIN,URINE NEGATIVE (NEGATIVE); UROBILINOGEN,URINE 0.2 (NORMAL) E.U./dL (NORMAL)
[2024-03-19] MEDS: CALCIUM GLUCONATE IN NS 0.9% 2,000 MG/100 ML BAG IV STA ×2 (01:28→02:23)
[2024-03-19] MEDS: ONDANSETRON 4 MG/2 ML VIAL IVP STA ×2 (01:28→02:50)
[2024-03-19] MEDS: CHARCOAL ACTIVATED 25 GM/120 ML BOTTLE PO STA (01:30)
[2024-03-19] MEDS ORDERED: CHARCOAL ACTIVATED 25 GM/120 ML BOTTLE PO ONE (01:30)
[2024-03-19 01:32] LABS: MAGNESIUM 1.6 mg/dL (1.7-2.3)
[2024-03-19 01:38] LABS: ABG PH 7.34 (7.35-7.45); ACETAMINOPHEN 3.3 ug/mL; ALBUMIN 4.1 g/dL (3.2-5.5); ALBUMIN/GLOBULIN RATIO 1.3 (1.0-2.2); ALKALINE PHOSPHATASE 73 IU/L (42-121); ALT ALANINE AMINOTRANSFERASE 16 IU/L (10-60); AST ASPARTATE AMINOTRANSFERASE 18 IU/L (10-42); BILIRUBIN,TOTAL 0.2 mg/dL (0.2-1.0); BUN - BLOOD UREA NITROGEN 18 mg/dL (6-20); CALCIUM 9.3 mg/dL (8.5-10.3); CARBON DIOXIDE - CO2 29 mmol/L (21-32); CHLORIDE 104 mmol/L (101-111); CREATININE 0.7 mg/dL (0.6-1.3); GFR - MDRD 109 (>89); GLUCOSE 150 mg/dL (74-104); PHOSPHORUS 3.2 mg/dL (2.5-5.0); POTASSIUM 3.7 mmol/L (3.5-4.5); SODIUM 138 mmol/L (135-145); TOTAL PROTEIN 7.2 g/dL (6.4-8.9)
[2024-03-19 01:40] LABS: INR 1.1 (0.8-1.2); PT - PROTHROMBIN TIME 12.2 secs (9.9-12.6); SALICYLATE < 1.5 mg/dL
[2024-03-19 01:41] LABS: ABG BASE EXCESS -0.6 mmol/L (-2.0-3.0); ABG HCO3 25.6 mmol/L (22.0-26.0); ABG OXYGEN SATURATION 96 % (94-98); ABG PCO2 49 mmHg (34-45); ABG PO2 92 mmHg (80-100); ABG TCO2 27.1 MMOL/L (21.0-29.0)
[2024-03-19 01:42] LABS: ALLEN TEST POSITIVE
--- NOTE | 2024-03-19 01:42 | XRAY Report ---
PROCEDURE: Chest 1V INDICATIONS: dyspnea/OD TECHNIQUE: One view of the chest was acquired. COMPARISON: 02/03/2024 FINDINGS: Surgical changes and devices: Sternotomy. Lungs and pleura: No pleural effusions or pneumothorax. Lungs are clear. Mediastinum: Mediastinal contours appear normal. Heart size is enlarged. Bones and chest wall: No suspicious bony lesions. Overlying soft tissues appear unremarkable. IMPRESSION: No acute cardiopulmonary process. Reviewed by: Leroy Sanders MD on 03/19/2024 1:41 AM PDT Approved by: Leroy Sanders MD on 03/19/2024 1:41 AM PDT Station ID: [id number]
[2024-03-19 01:45] LABS: AMPHETAMINE SCREEN,URINE NEGATIVE (NEGATIVE); CLARITY,URINE CLEAR (CLEAR); COCAINE SCREEN URINE NEGATIVE (NEGATIVE); METHAMPHETAMINES SCREEN, URINE NEGATIVE (NEGATIVE); OPIATE SCREEN, URINE POSITIVE (NEGATIVE); THC CANNABINOID SCREEN, URINE NEGATIVE (NEGATIVE)
[2024-03-19 01:46] LABS: BARBITURATE SCREEN,UR NEGATIVE (NEGATIVE); BENZODIAZEPINES SCREEN, URINE POSITIVE (NEGATIVE); BUPRENORPHINE SCREEN, URINE NEGATIVE (NEGATIVE); METHADONE SCREEN, URINE NEGATIVE (NEGATIVE); OXYCODONE SCREEN, URINE NEGATIVE (NEGATIVE); TRICYCLIC ANTIDEPRESSANT,URINE NEGATIVE (NEGATIVE)
[2024-03-19] MEDS: fentaNYL 100 MCG/2 ML VIAL IVP STA (01:47)
[2024-03-19] MEDS: GLUCAGON IV STA (01:57)
[2024-03-19] MEDS: DEXTROSE 5% IV STA (01:57)
[2024-03-19] MEDS: INSULIN REGULAR IN 0.9 % NS 100 UNIT/100 ML BAG IV SCH (01:57)
[2024-03-19 02:02] LABS: ETOH - ETHANOL < 10.0 mg/dL
[2024-03-19] MEDS: POTASSIUM CHLOR 10 MEQ/100 ML 10 MEQ/100 ML BAG IV ONE (02:09)
[2024-03-19] MEDS: HALOPERIDOL 5 MG/ML VIAL IVP STA (02:50)
[2024-03-19] MEDS: diphenhydrAMINE INJ 50 MG/ML VIAL IVP STA (04:04)
[2024-03-19] MEDS: LORazepam 2 MG/ML VIAL IVP STA ×2 (04:04→08:18)
[2024-03-19] MEDS: IPRATROPIUM/ALBUTEROL 3 ML NEB INH STA (08:49)
[2024-03-19] MEDS: DEXAMETHASONE 10 MG/ML VIAL IV STA (08:51)
[2024-03-19 09:04] LABS: ABG HCO3 27.6 mmol/L (22.0-26.0)
[2024-03-19 09:05] LABS: ABG BASE EXCESS -2.9 mmol/L (-2.0-3.0); ABG OXYGEN SATURATION 99 % (94-98); ABG TCO2 30.2 MMOL/L (21.0-29.0); ALLEN TEST POSITIVE
[2024-03-19 09:06] LABS: ABG PCO2 83 mmHg (34-45); ABG PH 7.14 (7.35-7.45); ABG PO2 166 mmHg (80-100)
[2024-03-19] MEDS ORDERED: SUCCINYLCHOLINE 200 MG/10 ML VIAL ONE (09:25)
[2024-03-19] MEDS: SUCCINYLCHOLINE 200 MG/10 ML VIAL IVP STA (09:29)
[2024-03-19] MEDS: PROPOFOL 1000 MG/100 ML 1,000 MG/100 ML BOTTLE IV STA (09:50)
--- NOTE | 2024-03-19 10:06 | XRAY Report ---
REVISED: THIS REPORT WAS ORIGINALLY SIGNED ON 03/19/2024 @ 10:05 AM. EXAM CODE REVISED ON 04/30/2024. PROCEDURE: Chest 1V INDICATIONS: intubation TECHNIQUE: One view of the chest was acquired. COMPARISON: 03/19/2024 at 12:52 AM. FINDINGS: Surgical changes and devices: Remote CABG. ET tube in satisfactory position, approximately 5.0 cm above the geovanna. Lumbar fusion hardware. Lungs and pleura: No pleural effusions or pneumothorax. Probable mild pulmonary edema. Mediastinum: Mediastinal contours appear normal. Heart size is normal. Bones and chest wall: No suspicious bony lesions. Overlying soft tissues appear unremarkable. IMPRESSION: ET tube in satisfactory position. Probable congestive heart failure exacerbation. Reviewed by: Tl Jaimes MD on 03/19/2024 10:05 AM PDT Approved by: Tl Jaimes MD on 03/19/2024 10:05 AM PDT Station ID: [id number]
[2024-03-19 11:22] LABS: ABG HCO3 28.4 mmol/L (22.0-26.0); ABG PCO2 59 mmHg (34-45); ABG TCO2 30.2 MMOL/L (21.0-29.0)
[2024-03-19 11:23] LABS: ABG MODE OF VENTILATION SIMV; ALLEN TEST POSITIVE
[2024-03-19 11:24] LABS: ABG RESPIRATORY RATE 20 b/min
[2024-03-19 11:26] LABS: ABG PO2 34 mmHg (80-100)
[2024-03-19 11:27] LABS: ABG OXYGEN SATURATION 63 % (94-98)
[2024-03-19 12:05] LABS: ABG PCO2 40 mmHg (34-45); ABG PH 7.41 (7.35-7.45)
[2024-03-19 12:06] LABS: ABG BASE EXCESS 0.2 mmol/L (-2.0-3.0); ABG HCO3 24.9 mmol/L (22.0-26.0); ABG MODE OF VENTILATION SIMV; ABG OXYGEN SATURATION 99 % (94-98); ABG RESPIRATORY RATE 24 b/min; ABG TCO2 26.1 MMOL/L (21.0-29.0); ALLEN TEST POSITIVE
[2024-03-19 12:09] LABS: ABG PO2 189 mmHg (80-100)
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
[2024-03-19] MEDS: HYDROmorphone 1 MG/ML CARPUJECT IM STA (14:28)
[2024-03-19] MEDS: ALBUTEROL NEB 2.5 MG/3 ML INH STA (20:20)
--- NOTE | 2024-03-19 23:17 | ED Physician Documentation ---
ED Addendum - Addendum Addendum: 03/20/24 21:02 I received sign out on this patient from Dr. Monroe at the end of her shift who, in turn, received sign out from Dr. Felix; please see their notes for further information, including Dr. Simpson note for complete H + P. In brief, this patient presents to the emergency department due to overdose of his prescription beta-eli. He has been evaluated by telepsychiatry, and plan was voluntary admit to appropriate facility for treatment of possible intentional OD with suicidal intent. However, at the time of sign-out from Dr. Dubon (to me), patient is now insisting on d/c home. Thus DCR consult is requested and subsequently DCR came to ED and completed their evaluation of patient in ED. DCR discussed their evaluation and recommendations with me; DCR concludes that patient accidentally overdosed on his beta-eli, possibly due to confusion after taking his lorazepam. DCR recommends d/c at this time. DCR conveys to me that patient was advised to not take more lorazepam given that it is causing confusion to this extent.
[2024-03-19 23:25] VITALS: BP 155/90; O2SAT 98
--- NOTE | 2024-03-26 06:52 | ED Physician Documentation ---
ED Addendum - Addendum Addendum: 03/26/24 06:47 The patient was signed out to me at change of shift, pending medical clearance after overdosing on his metoprolol. He was set to be cleared at 1300 after which time he could have a mental health evaluation. The patient had required some sedation overnight, due to anxiety and agitation and the patient became anxious again. I ordered a dose of Ativan for him and the patient was found to be somnolent. He complained of some shortness of breath but now was rather drow sy and seemed somewhat confused when aroused. ABG was performed and showed that the patient's pCO2 had nearly doubled from earlier in the night. I was concerned that the patient had had repeated doses of sedating medication overnight and that in the hours since worsening hypercarbia. The patient was already sedated so he was given 100 mg of succinylcholine and was intubated easily using a Zamora 3 blade, direct visualization, and a 7.5 ET tube. This was confirmed to be in good placement with capnometry, auscultation demonstrating good airflow to both lungs and no airflow to the stomach, and chest x-ray showing the tube in good placement. The patient remained intubated until his pCO2 corrected itself. He had been sedated on propofol but this was removed once the patient had a blood gases satisfactory. The patient was extubated easily and was much more alert and conversant. He was now able to be evaluated by telepsych, but during the course of their evaluation, he stated that he did not wish to stay in the hospital and was now involuntary. Telepsych felt that the patient should be kept involuntarily and so DCR was consulted. We were awaiting DCR arrival at the end of my shift. I have signed out the patient to the oncoming emergency physician, pending DCR evaluation and final disposition. Initial ABG, head increasingly become hypercarbic. Decision was made to intubate the patient to
== END 2024-03-19 23:22 | disposition home or self-care (01) ==
LOC: EDUNIT# → ED 00:58
DX: T44.7X2A Poisoning by beta-adrenoreceptor antagonists, intentional self-harm, initial encounter (principal); R45.1 Restlessness and agitation; F41.9 Anxiety disorder, unspecified; T50.995A Adverse effect of other drugs, medicaments and biological substances, initial encounter; R06.89 Other abnormalities of breathing; R41.0 Disorientation, unspecified; R40.0 Somnolence; M54.9 Dorsalgia, unspecified; G89.29 Other chronic pain; Z87.891 Personal history of nicotine dependence
CPT/HCPCS: 31500; 36415; 36600; 71045; 80053; 80143; 80306; 81003; 82803; 83735; 84100; 84443; 85025; 85610; 87635; 93005; 94002; 94640; 96365; 96366; 96372; 96375; 96376; 99291; A9270; G0425; G0480; J0330; J1170; J1200; J2060; Q3014; 80179; 81001; 82077; 87086

== ENCOUNTER 2024-04-13 09:13 | Emergency (ER) | payer MEDICARE ==
--- NOTE | 2024-04-13 10:59 | XRAY Report ---
PROCEDURE: Chest 1V INDICATIONS: cough TECHNIQUE: One view of the chest was acquired. COMPARISON: 03/19/2024. FINDINGS: Surgical changes and devices: Right shoulder arthroplasty. CABG.. Lungs and pleura: No pleural effusions or pneumothorax. Lungs are clear. Mild interstitial prominen ce. Mediastinum: Mediastinal contours appear normal. Mild cardiomegaly. Bones and chest wall: No suspicious bony lesions. Overlying soft tissues appear unremarkable. IMPRESSION: Mild cardiomegaly, mild interstitial prominence. No focal airspace consolidation. Reviewed by: Tl Jaimes MD on 04/13/2024 10:58 AM PDT Approved by: Tl Jaimes MD on 04/13/2024 10:58 AM PDT Station ID: [id number]
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
[2024-04-13 11:20] VITALS: BP 158/85; O2SAT 96
[2024-04-13] MEDS: methylPREDNISolone SUCCINATE 125 MG/2 ML VIAL IM STA (11:37)
[2024-04-13] MEDS: AMOX/CLAV 875 MG/125 MG TABLET PO STA (11:37)
[2024-04-13] MEDS: HYDROmorphone 1 MG/ML CARPUJECT IM STA (11:37)
[2024-04-13] MEDS: IPRATROPIUM/ALBUTEROL 3 ML NEB INH STA (11:42)
--- NOTE | 2024-04-14 05:10 | ED Physician Documentation ---
ED Addendum - Addendum Addendum: 04/14/24 05:08 I was informed by ED REPAIR COIL WINDER that this patient called approximately 10 minutes ago (around 5 AM this morning) to inform us that the [facility] pharmacy in [place] did not receive the prescription for his steroid. This is why I have accessed this chart at this time. I see prescriptions were entered for both Augmentin and Medrol Dosepak, and [facility] seems to indicate that these were electronically submitted to the [facility] pharmacy in [place]. Nonetheless, as these are not controlled substances, I re-sent both of these prescriptions to the [facility] pharmacy in [place]. It is not clear why the patient did not call yesterday regarding this information nor why he he is calling at 5 AM when the pharmacy is obviously not yet open.
== END 2024-04-13 11:51 | disposition home or self-care (01) ==
LOC: ED 09:13
DX: J44.1 Chronic obstructive pulmonary disease with (acute) exacerbation (principal); I10 Essential (primary) hypertension; I48.91 Unspecified atrial fibrillation; E11.9 Type 2 diabetes mellitus without complications; I25.810 Atherosclerosis of coronary artery bypass graft(s) without angina pectoris; I25.2 Old myocardial infarction; Z95.1 Presence of aortocoronary bypass graft; Z79.899 Other long term (current) drug therapy; Z79.84 Long term (current) use of oral hypoglycemic drugs; Z91.040 Latex allergy status
CPT/HCPCS: 71045; 96372; 99283; 99284; A9270; J1170

== ENCOUNTER 2024-05-01 10:46 | Emergency (ER) | payer MEDICARE, OTHER ==
[2024-05-01 11:17] VITALS: BP 142/91; O2SAT 94
--- NOTE | 2024-05-01 11:32 | ED Physician Documentation ---
PD HPI BACK PAIN - Stated complaint Stated Complaint: FALL - Chief complaint Chief Complaint: Trauma Ch/Bk - History obtained from History obtained from: Patient - Additional information Additional information: 79-year-old gentleman with history of narcotic abuse and multiple comorbidities was getting something out of the refrigerator yesterday and fell backwards on his butt and has right buttock pain. He is sore all over after that but no other specific injuries. PD PAST MEDICAL HISTORY - Past Medical History Cardiovascular: Hypertension, Coronary artery disease, VA, Atrial fibrillation, Murmur, Other Respiratory: Asthma, COPD Neuro: Headaches Endocrine/Autoimmune: Type 2 diabetes GI: GERD, Hiatal hernia, Diverticulitis : Benign prostate hypertrophy, Nocturia HEENT: Chronic sinusitis, Chronic hearing loss Psych: Depression, Anxiety, Claustrophobia Musculoskeletal: Osteoarthritis, Chronic back pain, Other Derm: Herpes zoster, Other - Past Surgical History Past Surgical History: Yes General: Cholecystectomy, EGD Ortho: Hip replacement, Knee replacement, Arthroscopic surgery, Other Cardiovascular: CABG, Other HEENT: Other - Present Medications Home Medications: Ambulatory Orders Medication Instructions Recorded Confirmed Levalbuterol Tartrate [Xopenex Hfa] 2 puffs INH Q4H PRN 06/21/17 11/30/23 traZODone [Desyrel] 400 mg PO QPM 06/21/17 11/30/23 Metoprolol Tartrate 50 mg PO DAILY 08/01/17 11/30/23 Acetaminophen/Cod 300/30 [Tylenol 1 each PO Q6H PRN #20 tablet 09/28/19 11/30/23 #3] Furosemide 20 mg PO DAILY PRN 07/13/20 11/30/23 Omeprazole 20 mg PO DAILY 07/13/20 11/30/23 glipiZIDE [Glipizide ER] 2.5 mg PO DAILY 04/27/22 11/30/23 Isosorbide Mononitrate 10 mg PO DAILY 09/13/22 11/30/23 Brimonidine 0.2% Ophth Drops 75 drops EACHEYE BID 12/25/22 11/30/23 [Alphagan P 0.2% Ophth Drops] Latanoprost/Pf [Latanoprost 0.005% 7.5 ml OP HS 12/25/22 11/30/23 Eye Drop] Lisinopril [Zestril] 40 mg PO DAILY 12/25/22 11/30/23 Prochlorperazine Maleate 10 mg PO Q6H PRN #15 tablet 06/28/23 11/30/23 [Compazine] Sumatriptan Succinate [Imitrex] 50 mg PO Q6H PRN #10 tablet 06/28/23 11/30/23 Ondansetron Odt [Zofran] 4 mg TL Q6H PRN #10 tablet 07/07/23 11/30/23 Levalbuterol [Xopenex] 1.25 mg INH Q8H PRN #30 ea 09/10/23 11/30/23 Doxycycline [Vibramycin] 100 mg PO BID 5 Days #10 tablet 02/03/24 predniSONE [Deltasone] 40 mg PO DAILY 5 Days #10 tablet 02/03/24 Amox/Clav 875/125 [Augmentin] 1 each PO Q12H #20 tablet 04/13/24 methylPREDNISolone [Medrol] 4 mg PO DAILY #1 tab 04/13/24 - Allergies Allergies/Adverse Reactions: Allergies Allergy/AdvReac Type Severity Reaction Status Date / Time pantoprazole sodium * Allergy Intermediate Nausea Verified 05/01/24 10:50 [From Protonix] Luulygu-HNU-TvN Reductase Allergy Intermediate Unknown Verified 05/01/24 10:50 Inhibitor [Pzkijxj-Apb-Fca Reductase Inhibitor] Sulfa (Sulfonamide Allergy Intermediate Rash Verified 05/01/24 10:50 Antibiotics) latex Allergy Mild Itching Verified 05/01/24 10:50 - Social History Does the pt smoke?: No Smoking Status: Never smoker Does the pt drink ETOH?: No Does the pt have substance abuse?: No - Immunizations Immunizations are current?: Yes - POLST Patient has POLST: No POLST Status: Full Code PD ED PE NORMAL - Vitals Vital signs reviewed: Yes - General General: Alert and oriented X 3, No acute distress - Back Back: No spinal TTP - Extremities Extremities: Other (There is a stage II right medial buttock pressure ulcer with some muscular tenderness in that area. No midline tenderness. Mild posterior pelvic brim tenderness.) - Neuro Neuro: Alert and oriented X 3 Results - Vitals Vitals: Vital Signs - 24 hr 05/01/24 10:50 Temperature 36.8 C Heart Rate 86 Respiratory 16 Rate Blood Pressure 142/91 H O2 Saturation 94 Oxygen O2 Source [] Room air O2 Source Room air - Rads (name of study) X-rays of the pelvis and sacrum were negative without evidence of fracture. Relevant Findings:: Final report received, EMP independent interpretation of test PD Medical Decision Making - ED course ED course: He presents with likely contusions to his buttock. 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 Radiography was negative. He initially told me he was between doctors and not getting his usual narcotics. I challenged him that his LETTY E showed that he had filled 120 Tylenol 3 a week ago. Then he told me that he had run out early, but then also told me that his was monitoring his med so he would not run out early. Regardless he started bargaining for oxycodone or a muscle relaxer or a sedative to help him sleep all which were declined based on the fact that he is on chronic narcotics and in pain management and there is no objective serious injury. Departure - Departure Disposition: 01 Home, Self Care Clinical Impression: Accidental fall, Back contusion Condition: Stable Record reviewed to determine appropriate education?: Yes Instructions: ED Contusion Back Comments: X-rays of the pelvis and sacrum were negative without evidence of fracture. You will need to establish with a new primary care physician for further evaluation and treatment. Tylenol as needed for pain. Return for new or worsening symptoms. Forms: PCP List Discharge Date/Time: 05/01/24 12:38
[2024-05-01] MEDS: oxyCODONE 5 MG TABLET PO STA (11:55)
--- NOTE | 2024-05-01 12:13 | XRAY Report ---
PROCEDURE: Pelvis 1-2V INDICATIONS: back inj TECHNIQUE: 2 view(s) of the pelvis acquired. COMPARISON: 10/15/2023. FINDINGS: Bones: No fractures or dislocations. Bilateral hip arthroplasties in place. Partially visualized lum bar spine hardware. No suspicious bony lesions. Soft tissues: Visualized bowel gas pattern is normal. No suspicious soft tissue calcifications. IMPRESSION: No acute bony abnormality. Bilateral hip arthroplasties without evidence of complication. Reviewed by: Yemi Oneill MD on 05/01/2024 12:11 PM PDT Approved by: Yemi Oneill MD on 05/01/2024 12:11 PM PDT Station ID: [id number]
--- NOTE | 2024-05-01 12:15 | XRAY Report ---
PROCEDURE: Sacrum/Coccyx INDICATIONS: back inj TECHNIQUE: 4 views of the sacrum and coccyx acquired. COMPARISON: 01/21/2023. FINDINGS: Bones: No fractures or dislocations. No suspicious bony lesions. Bilateral hip arthroplasties and partially visualized lumbar spine hardware. Soft tissues: Visualized bowel gas pattern is normal. No suspicious soft tissue densities. IMPRESSION: No definite fracture is seen. Reviewed by: Yemi Oneill MD on 05/01/2024 12:13 PM PDT Approved by: Yemi Oneill MD on 05/01/2024 12:13 PM PDT Station ID: [id number]
== END 2024-05-01 12:38 | disposition home or self-care (01) ==
LOC: ED 10:46
DX: S30.0XXA Contusion of lower back and pelvis, initial encounter (principal); W18.39XA Other fall on same level, initial encounter; Y93.89 Activity, other specified; Y92.000 Kitchen of unspecified non-institutional (private) residence as the place of occurrence of the external cause; L89.152 Pressure ulcer of sacral region, stage 2; Z79.891 Long term (current) use of opiate analgesic
CPT/HCPCS: 72170; 72220; 99283; A9270

== ENCOUNTER 2024-12-03 17:44 | Observation (INO) ==
--- OUTSIDE RECORDS SUMMARY | 2024-12-03 18:05 | EXTERNAL MEDICAL SUMMARY RPT | Continuity of Care Document ---
Author Organization [place] Address [address] [place] [id number] Phone Problems date description facility 2024-09-27 11:35 Carpal tunnel syndrome, right u pper limb [facility] 2024-09-29 08:00 Chronic obstructive pulmonary disease with (acute) exacerbation [facility] 2024-09-29 08:09 Chronic obstructive pulmonary disease with (acute) exacerbation [facility] 2024-09-29 08:32 Chronic obstructive pulmonary disease with (acute) exacerbation [facility] 2024-09-29 08:56 Chronic obstructive pulmonary disease with (acute) exacerbation [facility] 2024-09-29 08:58 Chronic obstructive pulmonary disease with (acute) exacerbation [facility] 2024-09-29 12:11 Chronic obstructive pulmonary disease with (acute) exacerbation [facility] 2024-10-02 11:13 Chronic obstructive pulmonary disease with (acute) exacerbation [facility] 2024-10-02 11:13 [facility] 2024-10-04 11:19 Carpal tunnel syndrome, right u pper limb [employer] 2024-10-05 07:49 Carpal tunnel syndrome, right u pper limb [facility] 2024-10-05 09:41 Chronic obstructive pulmonary disease with (acute) exacerbation [facility] 2024-10-05 09:41 Other forms of dyspnea [facility] 2024-10-05 11:20 Chronic obstructive pulmonary disease with (acute) exacerbation [facility] 2024-10-05 11:20 Other forms of dyspnea [facility] 2024-10-08 15:32 Chronic obstructive pulmonary disease with (acute) exacerbation [facility] 2024-10-08 15:32 Other forms of dyspnea [facility] 2024-10-10 12:37 Chronic obstructive pulmonary disease with (acute) exacerbation [facility] 2024-10-10 12:43 Chronic obstructive pulmonary disease with (acute) exacerbation [facility] 2024-10-10 12:59 Chronic obstructive pulmonary disease with (acute) exacerbation [facility] 2024-10-11 11:00 Chronic obstructive pulmonary disease with (acute) exacerbation [facility] 2024-10-11 11:08 Chronic obstructive pulmonary disease with (acute) exacerbation [facility] 2024-10-15 12:04 Chronic obstructive pulmonary disease with (acute) exacerbation [facility] 2024-10-15 12:04 Cough, unspecified [facility] 2024-10-15 12:04 Other forms of dyspnea [facility] 2024-10-15 12:04 Wheezing [facility] 2024-10-16 10:17 Chronic obstructive pulmonary disease with (acute) exacerbation [facility] 2024-10-16 10:17 Other specified [facility] 2024-11-08 10:32 Carpal tunnel syndrome, right u pper limb [facility] 2024-11-11 22:46 Pneumonia, unspecified organism [facility] 2024-11-11 22:54 Pneumonia, unspecified organism [facility] 2024-11-11 22:54 Chronic obstructive pulmonary disease with (acute) exacerbation [facility] 2024-11-14 12:33 Pneumonia, unspecified organism [facility] 2024-11-14 12:33 Chronic obstructive pulmonary disease with (acute) exacerbation [facility] 2024-11-14 12:33 Shortness of breath [facility] 2024-11-14 12:33 Pain, unspecified [facility] 2024-11-19 08:05 Other muscle spasm [facility] 2024-11-21 13:08 Other chest pain [facility] 2024-11-21 13:12 Chronic obstructive pulmonary disease with (acute) exacerbation [facility] 2024-11-21 13:12 Other forms of dyspnea [facility] 2024-11-22 13:55 Chronic obstructive pulmonary disease with (acute) exacerbation [facility] 2024-11-22 13:55 Other forms of dyspnea [facility] 2024-11-25 10:30 Chronic obstructive pulmonary disease with (acute) exacerbation [facility] 2024-11-26 13:48 Chronic obstructive pulmonary disease with (acute) exacerbation [facility] 2024-11-26 14:04 Chronic obstructive pulmonary disease with (acute) exacerbation [facility] 2024-11-29 12:09 Chronic obstructive pulmonary disease with (acute) exacerbation [facility] 2024-11-29 12:09 Cough, unspecified [facility] 2024-11-29 12:09 Wheezing [facility] 2024-11-29 12:09 Other chest pain [facility] Results/Labs test date facility value unit notes Result panel 1 NUCLEATED RED BLOOD CELLS AUTO 2024-10-10 11:35 [facility] 0.0 /100wbc (missing) NRBC ABSOLUTE COUNT (AUTO) 2024-10-10 11:35 [facility] 0.00 x10 3/ul (missing) BASOPHILS # (AUTO) 2024-10-10 11:35 [facility] 0.1 10 3/ul (missing) BILIRUBIN,TOTAL 2024-10-10 11:35 [facility] 0.4 mg /dl As of February 2023 testing method has changed, this may include reference ranges. EOSINOPHILS # (AUTO) 2024-10-10 11:35 [facility] 0.5 10 3/ul (missing) MONOCYTES # (AUTO) 2024-10-10 11:35 [facility] 1.0 10 3/ul (missing) CREATININE 2024-10-10 11:35 [facility] 1.0 mg/dl As of February 2023 testing method has changed, this may include reference ranges. ALBUMIN/GLOBULIN RATIO 2024-10-10 11:35 [facility] 1.4 (missing) (missing) LYMPHOCYTES # (AUTO) 2024-10-10 11:35 [facility] 1.8 10 3/ul (missing) MAGNESIUM 2024-10-10 11:35 [facility] 1.8 mg/dl As of February 2023 testing method has changed, this may include reference ranges. WHITE BLOOD COUNT 2024-10-10 11:35 [facility] 10.5 x10 3/ul (missing) HGB - HEMOGLOBIN 2024-10-10 11:35 [facility] 12.8 g /dl (missing) GLUCOSE 2024-10-10 11:35 [facility] 128 mg/dl As of February 2023 testing method has changed, this may include reference ranges. SODIUM 2024-10-10 11:35 [facility] 136 mmol/l As of February 2023 testing method has changed, this may include reference ranges. RED CELL DISTRIBUTION WIDTH 2024-10-10 11:35 [email or web address] 15.5 % (missing) BUN - BLOOD UREA NITROGEN 2024-10-10 11:35 [facility] 18 mg/dl As of Feb testing method has changed, this may include reference ranges. AST ASPARTATE AMINOTRANSFERASE 2024-10-10 11:35 [facility] 20 iu/l As of February 2023 testing method has changed, this may include reference ranges. ALT ALANINE AMINOTRANSFERASE 2024-10-10 11:35 [facility] 21 iu/l As of February 2023 testing method has changed, this may include reference ranges. LIPASE 2024-10-10 11:35 [facility] 25 u/l As of February 2023 testing method has changed, this may include reference ranges. MEAN CORPUSCULAR HEMOGLOBIN 2024-10-10 11:35 [facility] 26.1 pg (missing) CARBON DIOXIDE - CO2 2024-10-10 11:35 [employer] 29 mmol/l As of February 2023 testing method has changed, this may include reference ranges. PLT - PLATELET COUNT 2024-10-10 11:35 [employer] 297 10 3/ul (missing) GLOBULIN 2024-10-10 11:35 [facility] 3.0 g/dl (missing) PHOSPHORUS 2024-10-10 11:35 [facility] 3.6 mg/dl As of February 2023 testing method has changed, this may include reference ranges. MEAN CORPUSCULAR HGB CONC 2024-10-10 11:35 [facility] 30.3 g/dl (missing) ALBUMIN 2024-10-10 11:35 [employer] 4.3 g/dl As of February 2023 testing method has changed, this may include reference ranges. POTASSIUM 2024-10-10 11:35 [employer] 4.4 mmol/l As of February 2023 testing method has changed, this may include reference ranges. RED BLOOD COUNT 2024-10-10 11:35 [facility] 4.90 10 6/ul (missing) HCT - HEMATOCRIT 2024-10-10 11:35 [email or web address] 42.2 % (missing) NEUTROPHILS # (AUTO) 2024-10-10 11:35 [email or web address] 7.1 10 3/ul (missing) TOTAL PROTEIN 2024-10-10 11:35 [email or web address] 7.3 g/dl As of February 2023 testing method has changed, this may include reference ranges. GFR - MDRD 2024-10-10 11:35 [facility] 72 (umesh hawkins) Social History date description facility
[2024-12-03 18:27] LABS: BASOPHILS % (AUTO) 0.2 %; HCT - HEMATOCRIT 39.1 % (42.0-52.0); HGB - HEMOGLOBIN 12.6 g/dL (14.0-18.0); LYMPHOCYTES % (AUTO) 5.8 %; MEAN CORPUSCULAR HEMOGLOBIN 27.6 pg (27.0-31.0); MEAN CORPUSCULAR HGB CONC 32.2 g/dL (32.0-36.0); MEAN CORPUSCULAR VOLUME 85.7 fL (80.0-94.0); MEAN PLATELET VOLUME 8.7 fL (7.4-11.4); MONOCYTES % (AUTO) 6.7 %; NEUTROPHILS % (AUTO) 86.7 %; PLT - PLATELET COUNT 277 10^3/uL (130-450); RED BLOOD COUNT 4.56 10^6/uL (4.70-6.10); RED CELL DISTRIBUTION WIDTH 13.8 % (12.0-15.0); WHITE BLOOD COUNT 21.2 x10^3/uL (4.8-10.8)
[2024-12-03 18:31] LABS: ABNORMAL LYMPHS % (MANUAL) 0 %
--- NOTE | 2024-12-03 18:38 | XRAY Report ---
PROCEDURE: XR Chest 1V INDICATIONS: Chest pain TECHNIQUE: One view of the chest was acquired. COMPARISON: Chest x-ray 11/25/2024 FINDINGS: Surgical changes and devices: Sternal wires and partially visualized right shoulder arthroplasty. Lungs and pleura: No pleural effusions or pneumothorax. No consolidation. Mediastinum: Mediastinal contours appear normal. Heart size is enlarged. Bones and chest wall: No suspicious bony lesions. Overlying soft tissues appear unremarkable. IMPRESSION: No acute cardiopulmonary process. Reviewed by: Zeina Saavedra MD on 12/03/2024 6:37 PM PDT Approved by: Zeina Saavedra MD on 12/03/2024 6:37 PM PDT Station ID: [id number]
[2024-12-03 18:43] LABS: BAND NEUTROPHILS % (MANUAL) 2 %; DIFFERENTIAL COMMENT MANUAL DIFFERENTIAL; LYMPHOCYTES # (MANUAL) 0.6 10^3/uL (1.5-3.5); LYMPHOCYTES % (MANUAL) 3 %; MONOCYTES # (MANUAL) 1.5 10^3/uL (0.0-1.0); NEUTROPHILS # (MANUAL) 19.1 10^3/uL (1.5-6.6); PLATELET ESTIMATE, MANUAL NORMAL (130-450,000) (NORMAL); PLATELET MORPHOLOGY NORMAL APPEARANCE (NORMAL); RBC MORPHOLOGY (MULTIPLE) NORMAL APPEARANCE (NORMAL); WBC MORPHOLOGY (MULTIPLE) NORMAL APPEARANCE (NORMAL)
[2024-12-03 18:48] LABS: TROPONIN I HIGH SENSITIVITY 13.1 ng/L (2.3-19.7)
[2024-12-03 18:52] LABS: ALBUMIN/GLOBULIN RATIO 1.7 (1.0-2.2); BILIRUBIN,TOTAL 0.9 mg/dL (0.2-1.0); POTASSIUM 4.5 mmol/L (3.5-4.5); TOTAL PROTEIN 6.3 g/dL (6.4-8.9)
[2024-12-03 20:40] LABS: BILIRUBIN,URINE NEGATIVE (NEGATIVE); GLUCOSE, URINE (UA) NEGATIVE (NEGATIVE); KETONES,URINE (UA) NEGATIVE (NEGATIVE); LEUKOCYTE ESTERASE, URINE NEGATIVE (NEGATIVE); NITRITE,URINE NEGATIVE (NEGATIVE); OCCULT BLOOD,URINE NEGATIVE (NEGATIVE); PROTEIN,URINE TRACE mg/dL (NEGATIVE); UROBILINOGEN,URINE 0.2 (NORMAL) E.U./dL (NORMAL)
[2024-12-03 20:41] LABS: CLARITY,URINE CLEAR (CLEAR)
--- NOTE | 2024-12-03 21:01 | ED Physician Documentation ---
History of Present Illness Stated complaint Stated Complaint: GEN ILLNESS Chief complaint Chief Complaint: Cardiac History obtained from History obtained from: Patient Additonal information Additional information: 79yo male with hx COPD/asthma, chronic pain, chronic buttock wound, CHF. He complains of CP, confusion. All started today. IOn chronic tylenol 3, trazodone. Feels like he couldn't make ferry reservations. Further hx from . Starting 3pm acting very wierd. Couldn't remember how to use his nebulizer. Complained of inabilty to mvoe. [place] impending doom. No recent med changes. Meds/Allgy Home Medications Ambulatory Orders Medication Instructions Recorded Confirmed levalbuterol tartrate 45 2 puff inhalation Q4H PRN Wheezing 06/21/17 11/25/24 mcg/actuation aerosol inhaler (Xopenex HFA) trazodone 50 mg tablet 400 mg PO QPM 06/21/17 11/25/24 metoprolol tartrate 100 mg tablet 50 mg PO DAILY 08/01/17 11/25/24 acetaminophen 300 mg-codeine 30 mg 1 ea PO Q6H PRN Pain #20 tabs 09/28/19 11/25/24 tablet furosemide 20 mg tablet 20 mg PO DAILY PRN edema 07/13/20 11/25/24 omeprazole 20 mg tablet,delayed 20 mg PO DAILY 07/13/20 11/25/24 release glipizide 2.5 mg tablet, extended 2.5 mg PO DAILY 04/27/22 11/25/24 release 24 hr ondansetron 4 mg disintegrating 4 mg translingual Q6H PRN Nausea / 07/07/23 11/25/24 tablet Vomiting #10 tabs lidocaine 3 % topical cream 1 applic topical BID PRN pain 08/17/24 11/25/24 #28.35 grams levalbuterol HCl 1.25 mg/3 mL 1.25 mg (3 mL) inhalation Q8H PRN 10/05/24 11/25/24 solution for nebulization shortness of breath or wheezing #75 mL docusate sodium 100 mg capsule 200 mg (2 x 100 mg) PO BID #60 caps 11/08/24 0 11/25/24 (Colace) oxycodone 5 mg tablet 5 mg PO Q4H PRN pain #10 tabs 11/08/24 11/25/24 doxycycline hyclate 100 mg capsule 100 mg PO BID 5 days #10 caps 11/11/24 11/25/24 amoxicillin 875 mg-potassium 1 tab PO BID #14 tabs 11/25/24 clavulanate 125 mg tablet prednisone 10 mg tablet 10 mg PO DIRECTED #35 tabs 11/25/24 Allergies Allergies Allergy/AdvReac Type Severity Reaction Status Date / Time pantoprazole sodium * (From Allergy Intermediate Nausea Verified 12/03/24 17:47 Protonix) Ftyfdjg-HAG-ZrP Reductase Allergy Intermediate Unknown Verified 12/03/24 17:47 Inhibitor (Xmuxvop-Esz-Fwi Reductase Inhibitor) Sulfa (Sulfonamide Allergy Intermediate Rash Verified 12/03/24 17:47 Antibiotics) latex Allergy Mild Itching Verified 12/03/24 17:47 [facility] Active Problems All Active Problems (Updated 12/03/24 @ 22:25 by Mina Ferraro MD) Pressure ulcer of contiguous region involving back and right buttock, stage 2 (Acute) Encephalopathy acute (Acute) History of recent fall (Acute) Acute pain of left hip (Acute) Acute exacerbation of chronic obstructive pulmonary disease (Acute) Chronic dyspnea (Acute) Chest pain (Acute) Pneumonia (Acute) COPD exacerbation (Acute) Steroid-dependent asthma (Acute) Cough, persistent (Acute) Opioid dependence with current use (Acute) Chronic pain (Acute) Chronic dyspnea (Acute) Acute exacerbation of chronic obstructive pulmonary disease (Acute) Right carpal tunnel syndrome (Acute) Other problems related to social environment (Acute) Other problems related to housing and economic circumstances (Acute) Local infection of the skin and subcutaneous tissue, unspecified (Acute) Pressure ulcer of left buttock, stage 3 (Acute) Foot pain, right (Acute) Diabetes mellitus, new onset (Acute) Chest pain (Acute) Hyperglycemia (Acute) Hip pain (Acute) Nausea (Acute) Aspiration pneumonia (Acute) Rib fracture (Acute) Left shoulder strain (Acute) Accidental fall (Acute) Exacerbation of asthma (Acute) Bronchitis (Acute) Right sided abdominal pain (Acute) Esophagitis (Acute) Anemia (Acute) GI bleed (Acute) MRSA (methicillin resistant staph aureus) culture positive (Acute) Abdominal wall abscess (Acute) Medication refill (Acute) Post-operative pain (Acute) Atypical pneumonia (Acute) Elbow contusion (Acute) Fall (Acute) Asthma exacerbation (Acute) Contusion of right foot including toes (Acute) Altered mental status (Acute) Narcotic abuse (Acute) Narcotic addiction (Acute) Opiate dependence (Acute) Back pain (Acute) Shoulder pain, right (Acute) Acute exacerbation of chronic low back pain (Acute) Contusion of left hip (Acute) Anxiety (Acute) Dyspnea (Acute) Mild chronic obstructive pulmonary disease (Acute) Pneumonia (Acute) Rhomboid muscle pain (Acute) Abdominal pain (Acute) Insomnia (Acute) Neck pain (Acute) C7 cervical fracture (Acute) Cervical radiculopathy (Acute) COPD (chronic obstructive pulmonary disease) (Chronic) Hypertension (Chronic) Contusion (Acute) Cellulitis (Acute) Opioid abuse (Acute) Pulmonary hypertension (Acute) Systolic congestive heart failure with reduced left ventricular function, NYHA class 1 (Acute) Systolic congestive heart failure with reduced left ventricular function, NYHA class 3 (Acute) Fatty (change of) liver, not elsewhere classified (Acute) Social History Social History (Updated 11/15/24 @ 14:05 by Kathy Duenas RN) Smoking Status: Never smoker If you are a former smoker, when did you quit? (Date/Year): 2007 How many cigarettes a day do you smoke? (20 cigarettes=1 Pk): 10 Do you dip or chew tobacco?: No Do you vape?: No Patient requests smoking cessation consult: No Initiate information on smoking cessation: No Living arrangement: At home Living Condition: With spouse/s.o. Relationship: Do you feel safe in your home environment?: Yes Suffered physical, verbal, emotional, or financial abuse?: No History of Abuse: No ETOH Use: Beer Frequency: Occasional Number of Amount/day: 3 ETOH Use Details: rarely Substance Use: denies use Are you sexually active?: No POLST Patient has POLST: No POLST Status: Full Code Exam Exam Vital Signs: Vital Signs x48h Temp Pulse Resp BP Pulse Ox 12/03/24 22:21 22 129/89 99 12/03/24 21:15 78 22 147/78 H 95 12/03/24 21:00 78 20 147/89 H 99 12/03/24 20:46 89 20 131/94 H 94 12/03/24 19:55 37.1 C 102 H 18 120/69 95 12/03/24 17:47 37.2 C 101 H 18 102/64 94 Constitutional normal general appearance intermittent cries out in pain. A/O x 2. Eyes PERRL Respiratory breath sounds equal bilaterally, normal respiratory effort and clear to auscultation bilaterally Cardiovascular normal heart rate noted, regular rhythm noted and no murmur Gastrointestinal abdomen soft to palpation and nontender to palpation Back/Pelvis Small grade 2 pressure ulcer left upper buttock with some cellulitis. Neurology no movement abnormality noted, no focal motor deficit noted, no sensory deficits noted and GCS 15 Results Vitals Vitals: Vital Signs - 24 hr 12/03/24 17:47 12/03/24 19:55 12/03/24 20:43 Temperature 37.2 C 37.1 C Temperature Source Oral Oral Pulse Rate 101 H 102 H Respiratory Rate 18 18 Blood Pressure 102/64 120/69 O2 Saturation 94 95 Oxygen Delivery Method Room Air O2 Source Room air Room air Pain Intensity 9 9 12/03/24 20:46 12/03/24 21:00 12/03/24 21:15 Temperature Temperature Source Pulse Rate 89 78 78 Respiratory Rate 20 20 22 Blood Pressure 131/94 H 147/89 H 147/78 H O2 Saturation 94 99 95 Oxygen Delivery Method O2 Source Room air Room air Room air Pain Intensity 12/03/24 21:16 12/03/24 22:21 12/03/24 22:24 Temperature Temperature Source Pulse Rate Respiratory Rate 22 Blood Pressure 129/89 O2 Saturation 99 Oxygen Delivery Method Room Air O2 Source Room air Pain Intensity 8 Oxygen O2 Source [With Activity] Room air O2 Source Room air EKG (time done) 1804: EKG releavant findings:: EKG personally interpreted by author of this note. Relevant findings are: Sinus tachycardia with occasional PVCs, RAD and borderline prolonged QTc. Labs Labs: Laboratory Tests 12/03/24 12/03/24 12/03/24 18:23 20:30 21:15 WBC 21.2 H RBC 4.56 L Hgb 12.6 L Hct 39.1 L MCV 85.7 MCH 27.6 MCHC 32.2 RDW 13.8 Plt Count 277 MPV 8.7 Neut # (Auto) Not Reportable Lymph # (Auto) Not Reportable [place] # (Auto) Not Reportable Eos # (Auto) Not Reportable Baso # (Auto) Not Reportable Absolute Nucleated RBC Not Reportable Total Counted 100 Band Neuts % (Manual) 2 Abnorm Lymph % (Manual) 0 Nucleated RBC % Not Reportable Neutrophils # (Manual) 19.1 H Lymphocytes # (Manual) 0.6 L Monocytes # (Manual) 1.5 H Eosinophils # (Manual) 0.0 Basophils # (Manual) 0.0 Differential Comment MANUAL DIFFERENTIAL WBC Morphology NORMAL APPEARANCE Platelet Estimate NORMAL (130-450,000) Platelet Morphology NORMAL APPEARANCE RBC Morph Micro Appear NORMAL APPEARANCE Sodium 135 Potassium 4.5 Chloride 101 Carbon Dioxide 26 Anion Gap 8.0 BUN 15 Creatinine 1.0 Estimated GFR (MDRD) 72 L Glucose 176 H Lactic Acid 2.1 Calcium 9.0 Total Bilirubin 0.9 AST 16 ALT 20 Alkaline Phosphatase 64 Troponin I High Sens 13.1 Total Protein 6.3 L Albumin 4.0 Globulin 2.3 Albumin/Globulin Ratio 1.7 Lipase 39 Urine Color YELLOW Urine Clarity CLEAR Urine pH 6.0 Ur Specific [place] 1.015 Urine Protein TRACE Urine Glucose (UA) NEGATIVE Urine Ketones NEGATIVE Urine Occult Blood NEGATIVE Urine Nitrite NEGATIVE Urine Bilirubin NEGATIVE Urine Urobilinogen 0.2 (NORMAL) Ur Leukocyte Esterase NEGATIVE Ur Microscopic Review NOT INDICATED Urine Culture Comments NOT INDICATED PD Medical Decision Making ED course ED course: This is a 79-year-old gentleman with the above medical history who presents with an acute encephalopathy today with an infected buttock wound that is a chronic wound but the infection looks acute. He has a white count of 21,000. He has a supple neck and no headache. He was administered Tylenol 3 after many requests on his part for narcotics but he became more demanding for narcotics which were declined given the situation. He also had ancillary complaint of chest pain but the workup there was negative with negative troponin and nonischemic EKG. Head CT was negative. Telehealth request for admission placed at 10:25 PM. He was started on Ancef after blood cultures. The patient and family are counseled as to the diagnosis and need for admission. This document was made in part using voice recognition software, while efforts are made to proofread this document, sound alike an grammatical errors may occur. Discharge Plan Discharge Patient Disposition: 66 [facility] DC/Xfer Condition: Serious Clinical Impression: Encephalopathy acute, Pressure ulcer of contiguous region involving back and right buttock, stage 2 Cellulitis Qualifiers: Site of cellulitis: trunk Site of cellulitis of trunk: abdominal wall Qualified Code(s): L03.311 - Cellulitis of abdominal wall Prescriptions: No Action trazodone 50 MG tablet 400 mg PO QPM levalbuterol tartrate [Xopenex HFA] 15 GM HFA aerosol inhaler 2 puff inhalation Q4H PRN (Reason: Wheezing) metoprolol tartrate 100 MG tablet 50 mg PO DAILY acetaminophen-codeine 1 TAB tablet 1 ea PO Q6H PRN (Reason: Pain) Qty: 20 0RF furosemide 20 MG tablet 20 mg PO DAILY PRN (Reason: edema) omeprazole 20 MG tablet,delayed release (DR/EC) 20 mg PO DAILY glipizide 2.5 MG tablet extended release 24hr 2.5 mg PO DAILY Patient Comments: take 1 tablet by mouth once daily ondansetron 4 MG tablet,disintegrating 4 mg translingual Q6H PRN (Reason: Nausea / Vomiting) Qty: 10 0RF lidocaine 3 % cream 1 applic topical BID PRN (Reason: pain) Qty: 28.35 0RF levalbuterol HCl 1.25 mg/3 mL solution for nebulization 1.25 mg inhalation Q8H PRN (Reason: shortness of breath or wheezing) Qty: 75 0RF doxycycline hyclate 100 mg capsule 100 mg PO BID 5 Days Qty: 10 0RF amoxicillin-pot clavulanate 875-125 mg tablet 1 tab PO BID Qty: 14 0RF prednisone 10 mg tablet 10 mg PO DIRECTED Qty: 35 0RF Rx Instructions: 30 mg daily for 3 days, then 20 mg daily for 3 days, then 10 mg daily for 20 days oxycodone 5 mg tablet 5 mg PO Q4H PRN (Reason: pain) Qty: 10 0RF docusate sodium [Colace] 100 mg capsule 200 mg PO BID Qty: 60 0RF Print Language: Latvian
[2024-12-03] MEDS: ACETAMINOPHEN/CODEINE 300 MG/30 MG TABLET PO STA (21:16)
[2024-12-03] MEDS: LIDOCAINE JELLY 2% 6 ML JEL.PF.APP TOP STA (21:47)
[2024-12-03] MEDS: ceFAZolin 1 GM VIAL IVP STA (21:48)
--- NOTE | 2024-12-03 22:18 | CT Report ---
PROCEDURE: CT Head WO INDICATIONS: confusion TECHNIQUE: Noncontrast 4.5 mm thick angled axial sections acquired from the foramen magnum to the vertex. For r adiation dose reduction, the following was used: automated exposure control, adjustment of mA and/or kV according to patient size. COMPARISON: 07/28/2023 FINDINGS: Image quality: Excellent. CSF spaces: Basal cisterns are patent. No extra-axial fluid collections. The ventricles are symmet yahaira in size and shape. Brain: No intracranial bleeds or masses. There is cerebral volume loss for age, with resultant vent ricular and sulcal prominence. There are periventricular and deep white matter chronic small vessel ischemic changes. There is intracranial internal carotid artery atherosclerosis. Skull and face: Calvarium and visualized facial bones appear intact, without suspicious lesions. Sinuses: Visualized sinuses and mastoids are clear. IMPRESSION: No acute intracranial pathology. No significant changes from previous study. Reviewed by: Satish Jarrett MD on 12/03/2024 10:17 PM PDT Approved by: Satish Jarrett MD on 12/03/2024 10:17 PM PDT Station ID: [email or web address]
[2024-12-03] MEDS ORDERED: FUROSEMIDE 20 MG TABLET PO PRN (23:26)
[2024-12-03] MEDS ORDERED: LIDOCAINE 3% TOP PRN (23:26)
[2024-12-03] MEDS ORDERED: IBUPROFEN 400 MG TABLET PO PRN (23:31)
[2024-12-03] MEDS: PIPERACILLIN/TAZOBACTAM 3.375 GM in SODIUM CHLORIDE 0.9% MINIBAG 100 ML IV ONE (23:58)
[2024-12-04 00:17] LABS: CHOL/HDL RATIO 3.2 (<5.0); CHOLESTEROL 169 mg/dL; HDL CHOLESTEROL 53 mg/dL; LDL CHOLESTEROL,CALCULATED 80 mg/dL; LDL/HDL RATIO 1.5 (<3.6); TRIGLYCERIDES 178 mg/dL; VLDL CHOLESTEROL 36 mg/dL
[2024-12-04 00:21] LABS: THYROID STIMULATING HORMONE 1.24 uIU/mL (0.34-5.60)
[2024-12-04] MEDS: MELATONIN 3 MG TABLET PO PRN (00:47)
[2024-12-04] MEDS: oxyCODONE 5 MG TABLET PO PRN (00:47)
[2024-12-04] MEDS: BACITRACIN ZINC OINT 1 PACKET TOP SCH (00:48)
--- NOTE | 2024-12-04 01:04 | HISTORY & PHYSICAL EXAMINATION ---
Chief Complaint Chief Complaint Chief Complaint: ams, buttock pain History of Present Illness History of Present Illness HPI Comment/Other: pt brought to hospital d/t reporting that he appeared confused and unable to make ferry reservations. pt states that he felt like he could not get up out of his chart when he was the computer and felt like he couldn't see very well. he has a chronic L buttock wound that is more painful than usual. 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 he has h/o chronic opioid usage / dependence. no falls head injuries. no loc. no dysuria or hematuria. he did report some chest pain but no sob. chest pain has resolved. Review of Systems somewhat confused but otherwise able to be reoriented and answer questions about self and present situation Status of ROS: 10 or more systems reviewed and unremarkable except as noted in history and below [facility] Active Problems All Active Problems (Updated 12/03/24 @ 22:25 by Mina Ferraro MD) Pressure ulcer of contiguous region involving back and right buttock, stage 2 (Acute) Encephalopathy acute (Acute) History of recent fall (Acute) Acute pain of left hip (Acute) Acute exacerbation of chronic obstructive pulmonary disease (Acute) Chronic dyspnea (Acute) Chest pain (Acute) Pneumonia (Acute) COPD exacerbation (Acute) Steroid-dependent asthma (Acute) Cough, persistent (Acute) Opioid dependence with current use (Acute) Chronic pain (Acute) Chronic dyspnea (Acute) Acute exacerbation of chronic obstructive pulmonary disease (Acute) Right carpal tunnel syndrome (Acute) Other problems related to social environment (Acute) Other problems related to housing and economic circumstances (Acute) Local infection of the skin and subcutaneous tissue, unspecified (Acute) Pressure ulcer of left buttock, stage 3 (Acute) Foot pain, right (Acute) Diabetes mellitus, new onset (Acute) Chest pain (Acute) Hyperglycemia (Acute) Hip pain (Acute) Nausea (Acute) Aspiration pneumonia (Acute) Rib fracture (Acute) Left shoulder strain (Acute) Accidental fall (Acute) Exacerbation of asthma (Acute) Bronchitis (Acute) Right sided abdominal pain (Acute) Esophagitis (Acute) Anemia (Acute) GI bleed (Acute) MRSA (methicillin resistant staph aureus) culture positive (Acute) Abdominal wall abscess (Acute) Medication refill (Acute) Post-operative pain (Acute) Atypical pneumonia (Acute) Elbow contusion (Acute) Fall (Acute) Asthma exacerbation (Acute) Contusion of right foot including toes (Acute) Altered mental status (Acute) Narcotic abuse (Acute) Narcotic addiction (Acute) Opiate dependence (Acute) Back pain (Acute) Shoulder pain, right (Acute) Acute exacerbation of chronic low back pain (Acute) Contusion of left hip (Acute) Anxiety (Acute) Dyspnea (Acute) Mild chronic obstructive pulmonary disease (Acute) Pneumonia (Acute) Rhomboid muscle pain (Acute) Abdominal pain (Acute) Insomnia (Acute) Neck pain (Acute) C7 cervical fracture (Acute) Cervical radiculopathy (Acute) COPD (chronic obstructive pulmonary disease) (Chronic) Hypertension (Chronic) Contusion (Acute) Cellulitis (Acute) Opioid abuse (Acute) Pulmonary hypertension (Acute) Systolic congestive heart failure with reduced left ventricular function, NYHA class 1 (Acute) Systolic congestive heart failure with reduced left ventricular function, NYHA class 3 (Acute) Fatty (change of) liver, not elsewhere classified (Acute) Social History Social History (Updated 11/15/24 @ 14:05 by Kathy Duenas RN) Smoking Status: Former smoker If you are a former smoker, when did you quit? (Date/Year): 2009 How many cigarettes a day do you smoke? (20 cigarettes=1 Pk): 10 Second hand tobacco smoke exposure: No Do you dip or chew tobacco?: No Do you vape?: No Patient requests smoking cessation consult: No Initiate information on smoking cessation: No Living arrangement: At home Living Condition: With spouse/s.o. Relationship: Level: Assisted Home Mobility Equipment: Cane Do you feel safe in your home environment?: Yes Suffered physical, verbal, emotional, or financial abuse?: No History of Abuse: No ETOH Use: Beer Frequency: Occasional Number of Amount/day: 3 ETOH Use Details: rarely Substance Use: opiods/painkillers Are you sexually active?: No POLST Patient has POLST: No POLST Status: Full Code Meds/Allgy Home Medications Ambulatory Orders Medication Instructions Recorded Confirmed levalbuterol tartrate 45 2 puff inhalation Q4H PRN Wheezing 06/21/17 11/25/24 mcg/actuation aerosol inhaler (Xopenex HFA) trazodone 50 mg tablet 400 mg PO QPM 06/21/17 11/25/24 metoprolol tartrate 100 mg tablet 50 mg PO DAILY 08/01/17 11/25/24 acetaminophen 300 mg-codeine 30 mg 1 ea PO Q6H PRN Pain #20 tabs 09/28/19 11/25/24 tablet furosemide 20 mg tablet 20 mg PO DAILY PRN edema 07/13/20 11/25/24 omeprazole 20 mg tablet,delayed 20 mg PO DAILY 07/13/20 11/25/24 release glipizide 2.5 mg tablet, extended 2.5 mg PO DAILY 04/27/22 11/25/24 release 24 hr ondansetron 4 mg disintegrating 4 mg translingual Q6H PRN Nausea / 07/07/23 11/25/24 tablet Vomiting #10 tabs lidocaine 3 % topical cream 1 applic topical BID PRN pain 08/17/24 11/25/24 #28.35 grams levalbuterol HCl 1.25 mg/3 mL 1.25 mg (3 mL) inhalation Q8H PRN 10/05/24 11/25/24 solution for nebulization shortness of breath or wheezing #75 mL docusate sodium 100 mg capsule 200 mg (2 x 100 mg) PO BID #60 caps 11/08/24 11/25/24 (Colace) oxycodone 5 mg tablet 5 mg PO Q4H PRN pain #10 tabs 11/08/24 11/25/24 doxycycline hyclate 100 mg capsule 100 mg PO BID 5 days #10 caps 11/11/24 11/25/24 amoxicillin 875 mg-potassium 1 tab PO BID #14 tabs 11/25/24 clavulanate 125 mg tablet prednisone 10 mg tablet 10 mg PO DIRECTED #35 tabs 11/25/24 Allergies Allergies Allergy/AdvReac Type Severity Reaction Status Date / Time pantoprazole sodium * (From Allergy Intermediate Nausea Verified 12/03/24 17:47 Protonix) Dqsqwgj-NJK-RjK Reductase Allergy Intermediate Unknown Verified 12/03/24 17:47 Inhibitor (Iqfzwbe-Mrb-Whb Reductase Inhibitor) Sulfa (Sulfonamide Allergy Intermediate Rash Verified 12/03/24 17:47 Antibiotics) latex Allergy Mild Itching Verified 12/03/24 17:47 Exam Exam Vital Signs: Vital Signs x48h Temp Pulse Resp BP Pulse Ox 12/04/24 00:22 78 22 129/87 96 12/03/24 22:21 22 129/89 99 12/03/24 21:15 78 22 147/78 H 95 12/03/24 21:00 78 20 147/89 H 99 12/03/24 20:46 89 20 131/94 H 94 12/03/24 19:55 37.1 C 102 H 18 120/69 95 12/03/24 17:47 37.2 C 101 H 18 102/64 94 Constitutional normal general appearance and no apparent distress HENMT normocephalic and head/scalp atraumatic Eyes EOMs intact bilaterally Neck/C-Spine visual inspection normal Chest inspection of chest normal Respiratory no retractions and no use of accessory muscles details per ed charting Cardiovascular details per ed charting Gastrointestinal abdomen normal to inspection 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 near gluteal cleft. no discharge noted. Conclusion/Plan Problem List (1) Encephalopathy acute: Lab Results 12/03/24 18:23 12/03/24 18:23 Other Other Results/Comments: pt with - - L buttock cellulitis chronic buttock wound along L internal gluteal cleft surrounding erythema but no fluctuance or discharge stage 2 lidocaine topical, wound care, triple antibiotic vanc + zosyn - toxic, metabolic encephalopathy in setting of infection + polypharmacy no focal deficits head CT negative pt more alert and oriented cautious usage of pain meds - opioid dependence long-term user pt states his pain specialist has advised him to start buprenorphine - leukocytosis in setting of above vanc + zosyn blood cultures ordered in ER - chest pain likely d/t current situation / anxiety negative ed w/u, resolved - t2dm with hyperglycemia exacerbated d/t above check a1c, lipids, tsh
[2024-12-04] MEDS ORDERED: SODIUM CHLORIDE 0.9% 0 ML IV ONE (01:10)
[2024-12-04] MEDS: LEVALBUTEROL 1.25 MG/3 ML NEB INH PRN (01:25)
[2024-12-04] MEDS ORDERED: SODIUM CHLORIDE 0.9% 500 ML IV ONE (01:34)
[2024-12-04] MEDS ORDERED: VANCOMYCIN 1 GM VIAL ONE (01:36)
[2024-12-04] MEDS: SODIUM CHLORIDE 0.9% IV ONE (01:49)
[2024-12-04] MEDS: VANCOMYCIN IV ONE (01:49)
[2024-12-04] MEDS: traZODone 50 MG TABLET PO SCH (01:50)
[2024-12-04] MEDS: HYDROmorphone 0.5 MG/0.5 ML SYRINGE IVP ONE (01:50)
[2024-12-04] MEDS: PIPERACILLIN/TAZOBACTAM 3.375 GM in SODIUM CHLORIDE 0.9% MINIBAG 100 ML IV SCH ×2 (04:23→08:52)
[2024-12-04 04:40] LABS: BASOPHILS % (AUTO) 0.3 %; EOSINOPHILS # (AUTO) 0.1 10^3/uL (0.0-0.7); EOSINOPHILS % (AUTO) 0.6 %; HGB - HEMOGLOBIN 10.9 g/dL (14.0-18.0); LYMPHOCYTES # (AUTO) 1.8 10^3/uL (1.5-3.5); LYMPHOCYTES % (AUTO) 15.9 %; MEAN CORPUSCULAR HEMOGLOBIN 27.2 pg (27.0-31.0); MEAN CORPUSCULAR HGB CONC 31.1 g/dL (32.0-36.0); MEAN CORPUSCULAR VOLUME 87.3 fL (80.0-94.0); MEAN PLATELET VOLUME 9.5 fL (7.4-11.4); MONOCYTES # (AUTO) 1.2 10^3/uL (0.0-1.0); MONOCYTES % (AUTO) 10.5 %; NEUTROPHILS # (AUTO) 8.3 10^3/uL (1.5-6.6); NEUTROPHILS % (AUTO) 72.4 %; PLT - PLATELET COUNT 221 10^3/uL (130-450); RED BLOOD COUNT 4.01 10^6/uL (4.70-6.10); RED CELL DISTRIBUTION WIDTH 13.9 % (12.0-15.0); WHITE BLOOD COUNT 11.5 x10^3/uL (4.8-10.8)
[2024-12-04 04:54] LABS: ALBUMIN 3.5 g/dL (3.2-5.5); ALBUMIN/GLOBULIN RATIO 1.5 (1.0-2.2); CALCIUM 8.4 mg/dL (8.5-10.3); POTASSIUM 3.8 mmol/L (3.5-4.5); TOTAL PROTEIN 5.9 g/dL (6.4-8.9)
[2024-12-04] MEDS: KETOROLAC 15 MG/ML VIAL IVP PRN (05:03)
[2024-12-04] MEDS ORDERED: PANTOPRAZOLE 40 MG TABLET PO SCH (07:00)
[2024-12-04 07:16] LABS: ESTIMATED AVERAGE GLUCOSE 214 mg/dL (70-100); HEMOGLOBIN A1c% 9.1 % (4.27-6.07)
[2024-12-04] MEDS: INSULIN LISPRO 300 UNIT/3 ML PEN SUBQ SCH ×2 (08:49→18:05)
[2024-12-04] MEDS: LACTOBACILLUS RHAMNOSUS GG CAPSULE PO SCH (08:50)
[2024-12-04] MEDS: METOPROLOL TARTRATE 50 MG TABLET PO SCH (08:50)
[2024-12-04] MEDS: DOCUSATE SODIUM 100 MG CAPSULE PO SCH (08:50)
[2024-12-04] MEDS: predniSONE 5 MG TABLET PO SCH (08:50)
[2024-12-04] MEDS: ENOXAPARIN 40 MG/0.4 ML SYRINGE SUBQ SCH (08:51)
[2024-12-04] MEDS ORDERED: VANCOMYCIN INJ 1 GM in SODIUM CHLORIDE 0.9% 250 ML IV SCH (12:00)
[2024-12-04] MEDS: VANCOMYCIN INJ 1 GM in SODIUM CHLORIDE 0.9% 250 ML IV SCH (12:48)
--- NOTE | 2024-12-04 13:53 | PHARMACY PROGRESS NOTE ---
Best Possible Medication History Admit Date and Time: 12/03/24 2328 Home Medications Medication Instructions Recorded Confirmed Type levalbuterol tartrate 45 2 puff inhalation Q4H PRN Wheezing 06/21/17 12/04/24 History mcg/actuation aerosol inhaler (Xopenex HFA) metoprolol tartrate 100 mg tablet 50 mg PO DAILY 08/01/17 11/25/24 History acetaminophen 300 mg-codeine 30 mg 1 ea PO Q6H PRN Pain #20 tabs 09/28/19 12/04/24 Rx tablet glipizide 2.5 mg tablet, extended 2.5 mg PO DAILY 04/27/22 11/25/24 History release 24 hr ondansetron 4 mg disintegrating 4 mg translingual Q6H PRN Nausea / 07/07/23 12/04/24 Rx tablet Vomiting #10 tabs lidocaine 3 % topical cream 1 applic topical BID PRN pain 08/17/24 12/04/24 Rx #28.35 grams prednisone 10 mg tablet 10 mg PO DIRECTED #35 tabs 11/25/24 Rx furosemide 40 mg tablet 40 mg PO DAILY 12/04/24 12/04/24 History latanoprost 0.005 % eye drops 1 drp ophthalmic (eye) DAILY 12/04/24 12/04/24 History omeprazole 20 mg capsule,delayed 20 mg PO QDAC 12/04/24 12/04/24 History release trazodone 100 mg tablet 500 mg PO HS 12/04/24 12/04/24 History Processed by: Pharmacy (Medication Reconciliation completed by CrtsDay) Medications reviewed in ED?: No Medication History completed: Yes Patient Interview: Completed (patient unsure if on prednisone but has filled it. pt thinks he is on glipizide and metoprolol, but no recent fill history) Secondary Source(s): Pharmacy records (unable to confirm metoprolol and glipizide. glipizide has not been filled on insurance for over 1 year and metoprolol has been over 90 days. Pharmacies confirmed this.) and Insurance records [facility] Statement: As the person ultimately responsible for medication therapy, providers are able to order a medication from an existing home medication list in [facility] via the "Reconcile Routine" prior to Confirmation of that medication by java support engineer. Such practice is discouraged except when the physician, in their clinical judgment, deems that a medical need exists for a medication without regard to previous use.
[2024-12-04] MEDS: LIDOCAINE OINTMENT 5% 35.44 GM TUBE TOP SCH (16:50)
[2024-12-04] MEDS: ACETAMINOPHEN 325 MG TABLET PO PRN (20:07)
[2024-12-04] MEDS: INSULIN GLARGINE-YFGN 300 UNIT/3 ML PEN SUBQ SCH (21:24)
[2024-12-05] MEDS: SODIUM CHLORIDE FLUSH 0.9% 10 ML SYRINGE IVP SCH (00:49)
[2024-12-05] MEDS ORDERED: VANCOMYCIN INJ 1.25 GM in SODIUM CHLORIDE 0.9% 250 ML IV SCH (02:00)
[2024-12-05 05:12] LABS: BASOPHILS % (AUTO) 0.3 %; EOSINOPHILS # (AUTO) 0.1 10^3/uL (0.0-0.7); HGB - HEMOGLOBIN 11.5 g/dL (14.0-18.0); LYMPHOCYTES # (AUTO) 1.7 10^3/uL (1.5-3.5); LYMPHOCYTES % (AUTO) 24.4 %; MEAN CORPUSCULAR HEMOGLOBIN 26.9 pg (27.0-31.0); MEAN CORPUSCULAR HGB CONC 30.3 g/dL (32.0-36.0); MONOCYTES # (AUTO) 0.8 10^3/uL (0.0-1.0); MONOCYTES % (AUTO) 11.6 %; NEUTROPHILS # (AUTO) 4.4 10^3/uL (1.5-6.6); PLT - PLATELET COUNT 245 10^3/uL (130-450); RED BLOOD COUNT 4.27 10^6/uL (4.70-6.10); RED CELL DISTRIBUTION WIDTH 13.8 % (12.0-15.0); WHITE BLOOD COUNT 7.1 x10^3/uL (4.8-10.8)
[2024-12-05 05:27] LABS: CALCIUM 9.2 mg/dL (8.5-10.3); CREATININE 0.9 mg/dL (0.6-1.3); POTASSIUM 4.3 mmol/L (3.5-4.5)
[2024-12-05 08:12] VITALS: BP 181/88
[2024-12-05 08:19] VITALS: TEMP 97.9; O2SAT 96
[2024-12-05] MEDS ORDERED: CALCIUM CARBONATE 1,250 MG/5 ML UDC PO SCH (09:00)
[2024-12-05] MEDS: CALCIUM CARBONATE CHEW 500 MG TABLET PO SCH (09:37)
[2024-12-05] MEDS: CHOLECALCIFEROL 25 MCG TABLET PO SCH (09:37)
[2024-12-05] MEDS: ONDANSETRON ODT 4 MG TABLET TL PRN (09:55)
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
[2024-12-05 11:34] LABS: ESTIMATED AVERAGE GLUCOSE 212 mg/dL (70-100)
== END 2024-12-05 11:46 | disposition home or self-care (01) ==
LOC: MS3 17:44 → ED 17:44 → MS3 12-04 00:23
PROVIDERS: ADMIT Student in an Organized Health Care Education/Training Program; ATTEND Student in an Organized Health Care Education/Training Program
DX: E11.65 Type 2 diabetes mellitus with hyperglycemia; Z68.26 Body mass index [BMI] 26.0-26.9, adult; Z86.14 Personal history of Methicillin resistant Staphylococcus aureus infection; R07.9 Chest pain, unspecified; L89.132 Pressure ulcer of right lower back, stage 2; J43.9 Emphysema, unspecified; E66.9 Obesity, unspecified; F11.20 Opioid dependence, uncomplicated; L03.317 Cellulitis of buttock; E87.20 Acidosis, unspecified; G92.8 Other toxic encephalopathy; Z79.84 Long term (current) use of oral hypoglycemic drugs; L89.312 Pressure ulcer of right buttock, stage 2; Z87.891 Personal history of nicotine dependence